=== PATIENT | female | born 1980 | race Caucasian/White ===

== ENCOUNTER → 2016-11-12 | Outpatient (CLI) | payer MEDICAID ==
[~2016-11-12] MED LIST: AMOX-358 PO; AMOX500C2 PO; B/P MED; BUTA1TAB46 PO; BUTA1TAB55 PO; CEFP500T4 PO; CETI1TAB2 PO; CLR7.5T PO; CYCL10TA9 PO; DIAZ5TAB3 PO; DIPH1TAB25 PO; FAMO40TA6 PO; FLUT16SP22 NS; GLIM4TAB PO; GUAI1TBM12 PO; HCT25T GT; HYDR-757 PO; HYDR1TAB PO; HYDROCODONE PO; IBP800T; IBP800T PO; LISI-556 PO; LISI1TAB6 PO; MECL25TA56 PO; MELO-198 PO; METH4TAB PO; MORP10CA8 PO; MTF500T PO; NAPR-243 PO; NAPR250T2 PO; NORTRIPTYLINE; NS.65NA45; OMEP20TA7 PO; ONDA4TAB8 SL; PANT40TA2 PO; PRD20T PO; PRED20TA PO; PREG150C PO; PRM25T PO; PRO AIR INHALER; SUCR1TAB36 PO; SULF-222 PO; SULF1TAB35 PO; SUMA100T2; SUMA10PO MC; TIZA2CAP PO; TRAM50TA2 PO; VALA1000 PO; VARE1TAB22 PO
--- NOTE | 2016-11-12 18:35 | Diagnostic Imaging Report ---
Ultrasound noninvasive bilateral. INDICATION: Diminished blood flow to lower extremities. FINDINGS: Spectral and color flow imaging was utilized. The ankle-brachial indices were obtained. The ankle-brachial index on the right is 0.93 and on left 0.96 (normal 1.00 or greater). IMPRESSION: 1. The ankle-brachial indices are slightly below normal limits, indicating that there is diminished arterial blood flow to the lower legs. 2. If further evaluation is desired, then a dedicated bilateral lower extremity arterial Doppler exam would be recommended. Dictated by: Dictated on workstation # [id number]
== END ==
LOC: RAD 13:51
PROVIDERS: ATTEND Nurse Practitioner Family
DX: R20.9 Unspecified disturbances of skin sensation (principal); M79.672 Pain in left foot; M79.671 Pain in right foot
CPT/HCPCS: 93922

== ENCOUNTER 2016-11-23 07:56 | Outpatient (CLI) | payer MEDICAID ==
[~2016-11-23] VITALS: Ht 162.6 cm; Wt 98.9 kg
[2016-11-23] MEDS ORDERED: TRIAMCINOLONE ACET (KENALOG-40) 40 MG/ML 1 ML VIAL ONE (08:07)
[2016-11-23] MEDS ORDERED: BUPIVACAINE 0.25% 30 ML (SENSORCAINE) VIAL ONE (08:07)
[2016-11-23 08:20] VITALS: BP 119/92
[2016-11-23 09:06] VITALS: BP 136/96
--- NOTE | 2016-11-23 12:03 | Pain Medicine-Procedure ---
Procedure Pre-Op/Post-Op Diagnosis Diagnosis: disc disorder with radiculopathy, lumbar Indications for Operation Low back pain Attending Surgeon Liz Procedure Date of Service: Nov 23, 2016 Procedure: Lumbar Epidural Steroid Injection at the L4-L5 level under Fluoroscopic Guidance Procedure: Patient was identified in the holding area. After risks, benefits, and alternatives were discussed with the patient, informed consent was obtained. Patient was brought to the fluoroscopy suite and placed prone on the procedure room table. A time out was performed. Vital signs were monitored throughout the procedure. The patients low back was prepped and draped in the usual sterile fashion. The patients skin was anesthetized using 2% Lidocaine. A Tuohy needle was inserted and advanced to the L4-L5 epidural space under fluoroscopic guidance using the loss of resistance technique and intermittent projection of fluoroscopy. There was no paresthesia with needle placement. The needle position was confirmed in both the AP and lateral view. After negative aspiration 2ml of contrast was injected under live fluoroscopy which showed good spread of the contrast in the epidural space at the appropriate level, there was no intravascular or subarachnoid spread. Again, after negative aspiration for heme or CSF, 2 ml of 0.25% Bupivicaine, 2ml of preservative free normal saline, and 80mg of Kenalog was injected. The needle was removed and a sterile bandage was placed and the patient was transferred to the recovery area in stable condition. After a brief period of observation, patient was discharged to home with no new neurological deficits and no apparent complications. Complications None JUSTIN KING MD Nov 23, 2016 12:03 pm
== END 2016-11-23 09:09 ==
LOC: CARD 07:56
PROVIDERS: ATTEND Pain Medicine Pain Medicine
DX: M51.16 Intervertebral disc disorders with radiculopathy, lumbar region (principal); G89.4 Chronic pain syndrome; Z79.899 Other long term (current) drug therapy
CPT/HCPCS: 62323; 82962

== ENCOUNTER → 2017-02-08 | Outpatient (CLI) | payer MEDICAID ==
--- NOTE | 2017-02-08 13:06 | Diagnostic Imaging Report ---
PROCEDURE: US Bilateral lower extremity arterial. TECHNIQUE: Multiple real-time grayscale images are obtained through both lower extremity arterial systems with color Doppler imaging and color Doppler spectral analysis. INDICATION: Bilateral leg pain, abnormal BERNARDINO. COMPARISON: BERNARDINO readings 11/12/2016. DISCUSSION: No significant atherosclerotic disease identified within either lower extremity. Primarily normal triphasic waveforms are present bilaterally. No elevated flow velocities to suggest a hemodynamically significant stenosis. No arterial occlusion. Soft tissues are unremarkable. IMPRESSION: 1. No sonographic evidence for hemodynamically significant stenosis or arterial occlusion within either lower extremity. Dictated by: Dictated on workstation # [id number]
== END ==
LOC: RAD 11:53
PROVIDERS: ATTEND Nurse Practitioner Family
DX: R09.89 Other specified symptoms and signs involving the circulatory and respiratory systems (principal)
CPT/HCPCS: 93925

== ENCOUNTER 2017-05-27 12:21 | Emergency (ER) | payer MEDICAID ==
[~2017-05-27] VITALS: Ht 162.6 cm; Wt 98.9 kg
[2017-05-27 13:40] LABS: BILIRUBIN,URINE NEGATIVE (NEGATIVE); KETONES,URINE NEGATIVE (NEGATIVE); LEUKOCYTE ESTERASE ,URINE 2+ (NEGATIVE); NITRITE,URINE NEGATIVE (NEGATIVE); PH,URINE 6.5 (5-9); PROTEIN,URINE 2+ (NEGATIVE); UROBILINOGEN,URINE NORMAL (NORMAL)
[2017-05-27] MEDS ORDERED: KETOROLAC 30 MG/ML VIAL IVP STA (13:41)
[2017-05-27] MEDS ORDERED: NS IV 1000 ML 1,000 ML IV ONE (13:41)
[2017-05-27 13:53] LABS: WBC,URINE 50-100 /HPF
[2017-05-27 14:29] LABS: BASOPHILS % (AUTO) 0 % (0-10); EOSINOPHILS # (AUTO) 0.1 10^3/uL (0.0-0.3); EOSINOPHILS % (AUTO) 1 % (0-10); LYMPHOCYTES # (AUTO) 1.4 X 10^3 (1.0-4.0); LYMPHOCYTES % (AUTO) 11 % (12-44); MEAN CORPUSCULAR HEMOGLOBIN 30 PG (25-34); MEAN CORPUSCULAR HGB CONC 33 G/DL (32-36); MEAN CORPUSCULAR VOLUME 92 FL (80-99); MEAN PLATELET VOLUME 10.5 FL (7.4-10.4); MONOCYTES # (AUTO) 0.7 X 10^3 (0.0-1.0); MONOCYTES % (AUTO) 5 % (0-12); NEUTROPHILS # (AUTO) 10.9 X 10^3 (1.8-7.8); NEUTROPHILS % (AUTO) 83 % (42-75); PLATELET COUNT 257 10^3/uL (130-400); RED BLOOD COUNT 3.63 10^6/uL (4.35-5.85); RED CELL DISTRIBUTION WIDTH 12.7 % (10.0-14.5); WHITE BLOOD COUNT 13.1 10^3/uL (4.3-11.0)
[2017-05-27 14:48] LABS: ERYTHROCYTE SEDIMENTATION RATE 71 MM/HR (0-20)
[2017-05-27 14:51] LABS: ALBUMIN 3.9 GM/DL (3.2-4.5); BILIRUBIN,TOTAL 0.4 MG/DL (0.1-1.0); CALCIUM 9.2 MG/DL (8.5-10.1); CREATININE SERUM 1.15 MG/DL (0.60-1.30); POTASSIUM 4.1 MMOL/L (3.6-5.0); TOTAL PROTEIN 7.2 GM/DL (6.4-8.2); hs C REACTIVE PROTEIN 19.35 MG/DL (0.00-0.50)
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
[2017-05-27] MEDS ORDERED: LIDOCAINE 1% INJ 20 ML (XYLOCAINE) VIAL INJ STA (15:30)
--- NOTE | 2017-05-27 15:40 | Diagnostic Imaging Report ---
PROCEDURE: CT head without contrast. TECHNIQUE: Multiple contiguous axial images were obtained through the brain without the use of intravenous contrast. INDICATION: Fever. Headache. FINDINGS: No intracranial hemorrhage, edema or mass effect. The brain parenchyma and padron-white matter differentiation appear preserved. No hydrocephalus. No extra-axial fluid collection is seen. The calvarium, the visualized portions of the paranasal sinuses and orbits appear grossly unremarkable. IMPRESSION: Unremarkable exam. Dictated by: Dictated on workstation # [id number]
--- NOTE | 2017-05-27 16:30 | Anesthesia-Procedure Note ---
Procedure Start/Stop Time Date of Procedure: May 27, 2017 Start Time: 15:34 Stop Time: 16:19 Procedures/Interventions Discussed Risk,Benefits: Yes Patient Consents: Yes Position: Right (Lateral decubitis) Sterile Technique: Yes Opening Pressure: 25mmHg Fluid Color: clear Spinal Needle Used: 20g Quinke 3 1/2inch Procedure Notes Patient's chart reviewed, Head CT negative, Plat-[id number]. Risk and benefits were discussed with patient and informed consent was obtained. Patient was placed in the right lateral decubitus position and the back was prepped with betadine solution. The L4-L5 interspace was localized with 3ml of 1% lidocaine and a 20G Quinke needle was inserted. Return of clear CSF was noted and opening pressure of 25mmHg was obtained. Samples were obtained and sent to lab. Needle was removed and band-aid applied. Patient tolerated the procedure well. CARLOS HUFF CRNA May 27, 2017 16:30
[2017-05-27 16:38] LABS: APPEARANCE,CSF CLEAR; COLOR,CSF COLORLESS; WHITE BLOOD CELL,CSF 0 CELLS (0-5)
[2017-05-27 17:03] LABS: CSF GLUCOSE 101 MG/DL (50-80); CSF TOTAL PROTEIN 19 MG/DL (15-40)
[2017-05-27] MEDS ORDERED: cefTRIAXone INJECTION 1,000 MG in NS (IVPB) 50 ML IV ONE (17:15)
[2017-05-27] MEDS ORDERED: CEFD300C3 PO (17:19)
[2017-05-27] MEDS ORDERED: ACETAMINOPHEN 500 MG TAB (TYLENOL) ONE (17:20)
[2017-05-27] MEDS ORDERED: IBUPROFEN 800 MG (MOTRIN) TAB PO ONE (18:45)
[2017-05-27] MEDS ORDERED: ACETAMINOPHEN 500 MG TAB (TYLENOL) PO ONE (18:45)
[2017-05-27 19:08] VITALS: BP 131/77
== END 2017-05-27 18:52 | disposition home or self-care (01) ==
LOC: EDUNIT# 12:21 → ER 12:24
DX: N39.0 Urinary tract infection, site not specified (principal); J45.909 Unspecified asthma, uncomplicated; I10 Essential (primary) hypertension; E11.9 Type 2 diabetes mellitus without complications; F41.9 Anxiety disorder, unspecified; F43.10 Post-traumatic stress disorder, unspecified; F32.9 Major depressive disorder, single episode, unspecified; G43.909 Migraine, unspecified, not intractable, without status migrainosus; M06.9 Rheumatoid arthritis, unspecified; F17.210 Nicotine dependence, cigarettes, uncomplicated; Z87.19 Personal history of other diseases of the digestive system; Z87.448 Personal history of other diseases of urinary system; Z87.442 Personal history of urinary calculi; Z85.41 Personal history of malignant neoplasm of cervix uteri; Z79.84 Long term (current) use of oral hypoglycemic drugs
CPT/HCPCS: 36415; 70450; 80053; 81000; 82945; 83605; 84157; 84703; 85025; 85652; 86141; 87040; 87070; 87077; 87088; 87186; 87205; 87252; 89051; 96361; 96365; 96375

== ENCOUNTER 2017-06-28 17:55 | Inpatient (IN) | payer MEDICAID ==
[~2017-06-28] VITALS: Ht 160 cm; Wt 98.6 kg
[~2017-06-28 17:55] MED LIST changes: +CEFD300C3 PO
--- OUTSIDE RECORDS SUMMARY | 2017-06-28 18:00 | XMS REPORT ---
Author Author JENNY WOLF [facility] eClinicalWorks Address Unknown Phone Unavailable Care Team Providers Care Manufacturing Manager Name Role Phone JENNY WOLF CP Unavailable Allergies No Known Allergies Problems Problem Type Condition Code Onset Dates Condition Status Problem Essential hypertension I10 Active Problem Asthma J45.909 Active Problem Daytime hypersomnia G47.19 Active Problem Radiculopathy of lumbar region M54.16 Active Problem Snoring R06.83 Active Problem Spinal stenosis, lumbar region M48.06 Active Problem Sinusitis J32.9 Active Problem Hypersomnia G47.10 Active Problem Tobacco abuse Z72.0 Active Problem Edema of both feet R60.0 Active Problem Rash and nonspecific skin eruption R21 Active Problem Type 2 diabetes mellitus without complication E11.9 Active Problem Bulging lumbar disc M51.26 Active Problem Upper respiratory infection, acute J06.9 Active Problem Anxiety F41.9 Active Problem Left foot pain M79.672 Active Problem Heart palpitations R00.2 Active Problem Hand pain, left M79.642 Active Problem Hand pain, right M79.641 Active Problem Nausea & vomiting R11.2 Active Problem Change in bowel habit R19.4 Active Problem Exposure to head lice Z20.7 Active Problem Gastroesophageal reflux disease without esophagitis K21.9 Active Problem Chronic pain G89.29 Active Problem Vaginal yeast infection B37.3 Active Problem Yeast infection B37.9 Active Problem HSV (herpes simplex virus) infection B00.9 Active Medications No Known Medications Results No Known Results Summary Purpose eClinicalWorks Submission
--- OUTSIDE RECORDS SUMMARY | 2017-06-28 18:00 | XMS REPORT ---
Author Author JENNY WOLF Organization e[employer] Address Unknown Phone Unavailable Care Team Providers Care Mail Deliverer Name Role Phone JENNY WOLF CP Unavailable Allergies No Known Allergies Problems Problem Type Condition Code Onset Dates Condition Status Problem Posttraumatic stress disorder 309.81 Active Problem Diabetes mellitus without mention of complication, type II or unspecified type, not stated as uncontrolled 250.00 Active Problem Unspecified hereditary and idiopathic peripheral neuropathy 356.9 Active Problem Spinal stenosis of lumbar region with radiculopathy 724.02 Active Problem Bulging of intervertebral disc between L4 and L5 722.10 Active Problem Asthma 493.90 Active Problem Unspecified genital herpes 054.10 Active Problem Other abnormal glucose 790.29 Active Problem 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 Active Problem Chronic pain 338.29 Active Problem Obesity, unspecified 278.00 Active Problem 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 Active Problem Generalized anxiety disorder 300.02 Active Problem Essential hypertension, benign 401.1 Active Medications Medication Code System Code Instructions Start Date End Date Status Dosage MS Contin [facility] [address]-36 15 MG Orally every 12 hrs must last 30 days December 30, 2014 1 tablet Hydrocodone-Acetaminophen [facility] [address]-66 5-325 MG Orally every 6 hrs must last 30 days December 30, 2014 1 tablet as needed Clorazepate Dipotassium [facility] [address]-52 15 MG Orally 3 times a day prn 1 tablet Results No Known Results Summary Purpose eClinicalWorks Submission
--- OUTSIDE RECORDS SUMMARY | 2017-06-28 18:00 | XMS REPORT ---
Author Author WEN BELLO [facility] eClinicalWorks Address Unknown Phone Unavailable Care Team Providers Care Medical Diagnostic Radiographer Name Role Phone WEN BELLO Unavailable Allergies No Known Allergies Problems Problem Type Condition Code Onset Dates Condition Status Assessment Carpal tunnel syndrome, right upper limb G56.01 Active Problem HSV (herpes simplex virus) infection B00.9 Active Assessment Carpal tunnel syndrome, left upper limb G56.02 Active Problem Chronic pain G89.29 Active Problem Essential hypertension I10 Active Problem Vaginal yeast infection B37.3 Active Problem Snoring R06.83 Active Problem Daytime hypersomnia G47.19 Active Problem Hand pain, right M79.641 Active Problem Left foot pain M79.672 Active Problem Spinal stenosis, lumbar region M48.06 Active Problem Radiculopathy of lumbar region M54.16 Active Problem Hand pain, left M79.642 Active Problem Asthma J45.909 Active Problem Tobacco abuse Z72.0 Active Problem Sinusitis J32.9 Active Problem Heart palpitations R00.2 Active Problem Hypersomnia G47.10 Active Problem Type 2 diabetes mellitus without complication E11.9 Active Problem Exposure to head lice Z20.7 Active Problem Anxiety F41.9 Active Problem Bulging lumbar disc M51.26 Active Problem Change in bowel habit R19.4 Active Problem Yeast infection B37.9 Active Problem Gastroesophageal reflux disease without esophagitis K21.9 Active Problem Nausea & vomiting R11.2 Active Medications No Known Medications Procedures Procedure Coding System Code Date Office Visit, Est Pt., Level 3 CPT-4 98315 April 19, 2016 Vital Signs Date/Time: April 19, 2016 Blood Pressure Diastolic 82 mmHg Blood Pressure Systolic 118 mmHg Height 63 in Results No Known Results Summary Purpose eClinicalWorks Submission
--- OUTSIDE RECORDS SUMMARY | 2017-06-28 18:01 | XMS REPORT ---
Author Author JENNY WOLF Organization e[employer] Address Unknown Phone Unavailable Care Team Providers Care Scale Tank Operator Name Role Phone JENNY WOLF CP Unavailable [...] (herpes simplex virus) infection B00.9 Active Medications Medication Code System Code Instructions Start Date End Date [facility] D[facility] [address]-[facility] 2 MG Subcutaneous weekly Sep 06, 2016 Nov 29, 2016 inject 2 mg Results No Known Results Summary Purpose eClinicalWorks Submission
--- OUTSIDE RECORDS SUMMARY | 2017-06-28 18:01 | XMS REPORT ---
Author Author JENNY WOLF Organization e[employer] Address Unknown Phone Unavailable Care Team Providers Care Sole Rounder Name Role Phone JENNY WOLF CP Unavailable Allergies No Known Allergies Problems Problem Type Condition Code Onset Dates Condition Status Problem GERD (gastroesophageal reflux disease) K21.9 Active Problem Radiculopathy of lumbar region M54.16 Active Problem Asthma J45.909 Active Problem Blood glucose abnormal R73.09 Active Problem Boil of buttock L02.32 Active Problem Exposure to head lice Z20.7 Active Problem Anxiety F41.9 Active Problem Spinal stenosis, lumbar region M48.06 Active Problem Type 2 diabetes mellitus without complication E11.9 Active Problem Bulging lumbar disc M51.26 Active Problem Essential hypertension, benign 401.1 Active Problem Chronic pain 338.29 Active Problem Spinal stenosis of lumbar region with radiculopathy 724.02 Active Problem Posttraumatic stress disorder 309.81 Active Problem Asthma 493.90 Active Problem Unspecified hereditary and idiopathic peripheral neuropathy 356.9 Active Problem Essential hypertension I10 Active Medications No Known Medications Results No Known Results Summary Purpose eClinicalWorks Submission
--- OUTSIDE RECORDS SUMMARY | 2017-06-28 18:01 | XMS REPORT ---
Author Author JENNY WOLF [facility] eClinicalWorks Address Unknown Phone Unavailable Care Team Providers Care Tactical Intelligence Officer Name Role Phone JENNY WOLF CP Unavailable Allergies No Known Allergies Problems Problem Type Condition Code Onset Dates Condition Status Problem Change in bowel habit R19.4 Active Problem HSV (herpes simplex virus) infection B00.9 Active Problem Yeast infection B37.9 Active Problem Tobacco abuse Z72.0 Active Problem Sinusitis J32.9 Active Problem Hypersomnia G47.10 Active Problem Vaginal yeast infection B37.3 Active Problem Chronic pain G89.29 Active Problem Snoring R06.83 Active Problem Daytime hypersomnia G47.19 Active Problem Radiculopathy of lumbar region M54.16 Active Problem Spinal stenosis, lumbar region M48.06 Active Problem Essential hypertension I10 Active Problem Asthma J45.909 Active Problem Type 2 diabetes mellitus without complication E11.9 Active Problem Exposure to head lice Z20.7 Active Problem Anxiety F41.9 Active Problem Gastroesophageal reflux disease without esophagitis K21.9 Active Problem Bulging lumbar disc M51.26 Active Problem Nausea & vomiting R11.2 Active Medications No Known Medications Results No Known Results Summary Purpose eClinicalWorks Submission
--- OUTSIDE RECORDS SUMMARY | 2017-06-28 18:01 | XMS REPORT ---
Author Author JENNY WOLF Organization [employer] Address Unknown Phone Unavailable Care Team Providers Care Electric Deicer Assembler Name Role Phone JENNY WOLF CP Unavailable [...] Problem Nausea & vomiting R11.2 Active Medications Medication Code System Code Instructions Start Date End Date Status Dosage Glimepiride [facility] [address]-31 2 MG Orally twice a day 1 tablet Results No Known Results Summary Purpose eClinicalWorks Submission
--- OUTSIDE RECORDS SUMMARY | 2017-06-28 18:01 | XMS REPORT ---
Author Author JENNY WOLF Organization [employer] Address Unknown Phone Unavailable Care Team Providers Care Flatwork Washer Name Role Phone JENNY WOLF CP Unavailable Allergies No Known Allergies Problems Problem Type Condition Code Onset Dates Condition Status Problem Chronic pain 338.29 Active Problem Asthma 493.90 Active Problem Spinal stenosis of lumbar region with radiculopathy 724.02 Active Problem Anxiety F41.9 Active Problem Spinal stenosis, lumbar region M48.06 Active Problem Bulging lumbar disc M51.26 Active Problem GERD (gastroesophageal reflux disease) K21.9 Active Problem Essential hypertension I10 Active Problem Radiculopathy of lumbar region M54.16 Active Problem Asthma J45.909 Active Problem Essential hypertension, benign 401.1 Active Problem Posttraumatic stress disorder 309.81 Active Problem Unspecified hereditary and idiopathic peripheral neuropathy 356.9 Active Medications Medication Code System Code Instructions Start Date End Date Status Dosage Acyclovir [facility] 30214560405 400 MG Orally Twice a day 1 tablet Hydrochlorothiazide [facility] [address]-86 25 MG Orally Once a day TAKE ONE TABLET BY MOUTH DAILY Omeprazole [facility] [address]-93 20 MG Orally Once a day April 21, 2015 1 capsule Carafate [facility] [address]-70 1 GM Orally Twice a day please voucher 1 tablet on an empty stomach Results No Known Results Summary Purpose eClinicalWorks Submission
--- OUTSIDE RECORDS SUMMARY | 2017-06-28 18:01 | XMS REPORT ---
Author Author JENNY WOLF Organization [employer] Address Unknown Phone Unavailable Care Team Providers Care Cardiac Rehabilitation Specialist Name Role Phone JENNY WOLF CP Unavailable [...]
--- OUTSIDE RECORDS SUMMARY | 2017-06-28 18:01 | XMS REPORT ---
Author Author JENNY WOLF [facility] eClinicalWorks Address Unknown Phone Unavailable Care Team Providers Care Shipfitter Helper Name Role Phone JENNY WOLF CP Unavailable Allergies, Adverse Reactions, Alerts Substance Reaction Event Type Prozac severe nightmares Drug Allergy Levaquin Info Not Available Drug Allergy Diclofenac Sodium rash Drug Allergy ChloraPrep One Step Info Not Available Drug Allergy Quinolones Info Not Available Non Drug Allergy Problems Problem Type Condition Code Onset Dates Condition Status Assessment Asthma J45.909 Active Assessment Nausea & vomiting R11.2 Active Assessment Herpes simplex B00.9 Active Assessment Encounter for Depo-Provera contraception Z30.42 Active Assessment Dysuria R30.0 Active Problem Essential hypertension I10 Active Problem Vaginal yeast infection B37.3 Active Problem Asthma J45.909 Active Problem Daytime hypersomnia G47.19 Active Problem Radiculopathy of lumbar region M54.16 Active Problem Snoring R06.83 Active Problem Tobacco abuse Z72.0 Active Problem Sinusitis J32.9 Active Problem Rash and nonspecific skin eruption R21 Active Problem Hand pain, left M79.642 Active Problem Bulging lumbar disc M51.26 Active Problem Anxiety F41.9 Active Problem Edema of both feet R60.0 Active Problem Spinal stenosis, lumbar region M48.06 Active Problem Heart palpitations R00.2 Active Problem Hypersomnia G47.10 Active Problem Hand pain, right M79.641 Active Problem Left foot pain M79.672 Active Problem Gastroesophageal reflux disease without esophagitis K21.9 Active Problem Nausea & vomiting R11.2 Active Problem Type 2 diabetes mellitus without complication E11.9 Active Problem Exposure to head lice Z20.7 Active Problem HSV (herpes simplex virus) infection B00.9 Active Problem Chronic pain G89.29 Active Problem Change in bowel habit R19.4 Active Problem Yeast infection B37.9 Active Medications Medication Code System Code Instructions Start Date End Date Status Dosage Imitrex [facility] [address]-58 100 MG Orally Once a day prn May 24, 2014 1 tablet by Oral route 1 time per day and repeat once more after 2 hours if headache recurs PRN Glimepiride [facility] 80591998357 2 MG Orally twice a day 1 tablet Hydrocodone-Acetaminophen [facility] [address]-19 5-325 MG Orally four times a day as needed for pain. Must last 28 days.- must have appt before next refill 1 tablet Lisinopril [facility] [address]-15 5 MG TAKE ONE TABLET BY MOUTH ONCE DAILY Nystatin [facility] [address]-05 812298 UNIT/GM Externally three times a day Nov 15, 2015 1 application to affected area Cane [facility] 8225-374641 1 daily May 24, 2015 as directed Lyrica [facility] [address]-73 150 MG Orally Three times a day 1 capsule Blood Glucose Monitor System [facility] [address]58[address] w/Device 2 times a day as needed. Nov 01, 2015 test blood sugar Pantoprazole Sodium [facility] [address]-47 20 mg Orally Once a day 1 tablet Zovirax [facility] [address]-49 5 % Externally Twice a day 1 application to affected area Symbicort [facility] [address]-47 80-4.5 MCG/ACT Inhalation Twice a day Jul 25, 2016 2 puffs MS Contin [facility] [address]-48 15 MG Orally every 12 hrs as needed must last 28 days-appt needed before next sciopt 1 tablet Lidocaine [facility] [address]-84 5 % Externally Three times a day 1 application to affected area as needed Robaxin [facility] [address]-79 500 MG Orally 3 times a day 1 tablet ProAir HFA [facility] [address]-85 108 (90 Base) MCG/ACT Inhalation every 4 hrs prn Jun 21, 2015 2 puffs as needed Promethazine HCl [facility] 14406535329 25 MG Orally every 6 hrs prn 1 tablet as needed Proctofoam HC [facility] 12173819913 1-1 % Rectal Four times a day 1 application as needed Clorazepate Dipotassium [facility] [address]-30 15 MG Orally 3 times a day prn must last 28 days. appt needed before next script 1 tablet Metoprolol Tartrate [facility] [address]-47 25 MG Orally Twice a day 1 tablet with food Carafate [facility] 48572335504 1 GM TAKE ONE TABLET BY MOUTH TWICE DAILY ON AN EMPTY STOMACH Flonase NDC 0 50 mcg/actuation Nasally Once a day Jun 16, 2014 1 sprays by Nasal route 2 times per day in each nostril Valacyclovir HCl [facility] [address]-88 1 GM Orally every 24 hrs 1 tablet Nabumetone [facility] [address]-42 500 MG Orally Twice a day Jun 07, 2015 1 tablet Procedures Procedure Coding System Code Date URINE TEST CPT-4 03933 Jul 25, 2016 DEPO PROVERA (150 MG/ML) CPT-4 J1050 Jul 25, 2016 URINALYSIS, AUTO, W/O SCOPE CPT-4 18206 Jul 25, 2016 Office Visit, Est Pt., Level 5 CPT-4 25074 Jul 25, 2016 THER/PROPH/DIAG INJ, SC/IM CPT-4 51343 Jul 25, 2016 Vital Signs Date/Time: Jul 25, 2016 Cardiac Monitoring Heart Rate 90 bpm Weight 233.3 lbs Height 63 in BMI 41.32 Index Blood Pressure Diastolic 82 mmHg Blood Pressure Systolic 132 mmHg Results Name Result Date Reference Range Unit Abnormality Flag TEST, URINE (IN HOUSE) ----RESULTS Negative [id number] ----Lot # [id number] ----Control + [id number] ----Exp date 20160725 UA LONG DIP (IN HOUSE) ----CHRISTI Negative [id number] ----GLU 2+ [id number] ----SG 1.010 20160725 ----KET Negative [id number] ----pH 5.5 20160725 ----Protein Negative [id number] ----BLO Negative [id number] ----[place] Negative [id number] ----Color yellow [id number] ----Odor none [id number] ----Exp date [id number] ----URO 0.2 20160725 ----NIT Negative [id number] ----Clarity clear 20160725 ----Lot # [id number] Summary Purpose eClinicalWorks Submission
--- OUTSIDE RECORDS SUMMARY | 2017-06-28 18:01 | XMS REPORT ---
Author Author JENNY WOLF [facility] eClinicalWorks Address Unknown Phone Unavailable Care Team Providers Care Hammer Fitter Name Role Phone JENNY WOLF CP Unavailable Allergies, Adverse Reactions, Alerts Substance Reaction Event Type Prozac severe nightmares Drug Allergy Levaquin Info Not Available Drug Allergy Diclofenac Sodium rash Drug Allergy ChloraPrep One Step Info Not Available Drug Allergy Quinolones Info Not Available Non Drug Allergy Problems Problem Type Condition Code Onset Dates Condition Status Problem Bulging lumbar disc M51.26 Active Problem Exposure to head lice Z20.7 Active Problem Type 2 diabetes mellitus without complication E11.9 Active Problem Chronic pain G89.29 Active Problem HSV (herpes simplex virus) infection B00.9 Active Problem Vaginal yeast infection B37.3 Active Problem Nausea & vomiting R11.2 Active Problem Gastroesophageal reflux disease without esophagitis K21.9 Active Problem Yeast infection B37.9 Active Problem Change in bowel habit R19.4 Active Assessment HSV (herpes simplex virus) infection B00.9 Active Assessment Type 2 diabetes mellitus without complication E11.9 Active Assessment Vaginal yeast infection B37.3 Active Assessment Spinal stenosis, lumbar region M48.06 Active Problem Asthma J45.909 Active Problem Radiculopathy of lumbar region M54.16 Active Assessment Essential hypertension I10 Active Problem Spinal stenosis, lumbar region M48.06 Active Problem Essential hypertension I10 Active Problem Anxiety F41.9 Active Medications Medication Code System Code Instructions Start Date End Date Status Dosage Carafate [facility] [address]-33 1 GM Orally Twice a day please voucher 1 tablet on an empty stomach Proctofoam HC [facility] 55837317855 1-1 % Rectal Four times a day 1 application as needed Lidocaine [facility] [address]-39 5 % Externally Three times a day 1 application to affected area as needed Imitrex [facility] [address]-46 100 mg May 24, 2014 1 tablet by Oral route 1 time per day and repeat once more after 2 hours if headache recurs PRN Nystatin [facility] [address]-85 100,000 unit/gram Nov 01, 2014 apply to the affected area(s) by Topical route 4-8 times per day Promethazine HCl [facility] 73375746285 25 MG Orally every 6 hrs prn 1 tablet as needed MS Contin [facility] [address]-48 15 MG Orally every 12 hrs as needed must last 29 days December 30, 2014 1 tablet Clorazepate Dipotassium [facility] [address]-86 15 MG Orally 3 times a day prn must last 29 days 1 tablet ProAir HFA [facility] [address]-40 108 (90 Base) MCG/ACT Inhalation every 4 hrs prn Jun 21, 2015 2 puffs as needed Flonase [facility] 0 50 mcg/actuation Nasally Once a day Jun 16, 2014 1 sprays by Nasal route 2 times per day in each nostril Omeprazole [facility] [address]-19 20 MG Orally Once a day April 21, 2015 1 capsule Lyrica [facility] [address]-30 150 MG Orally Three times a day 1 capsule Nystatin [facility] [address]-12 134602 UNIT/GM Externally three times a day Nov 15, 2015 1 application to affected area Hydrocodone-Acetaminophen [facility] [address]-53 5-325 MG Orally qid prn December 30, 2014 1 tablet as needed Zovirax [facility] [address]-22 5 % Externally Twice a day Oct 26, 2015 1 application to affected area Acyclovir [facility] 42577654601 400 MG Orally four times a day 1 tablet Cane [facility] 8225-954050 1 daily May 24, 2015 as directed Robaxin [facility] [address]-13 500 MG Orally 3 times a day 1 tablet Diflucan [facility] [address]-17 100 MG Orally daily Dec 01, 2015 Dec 11, 2015 1 tablet Blood Glucose Monitor System [facility] 27[address]20 w/Device 2 times a day as needed. Nov 01, 2015 test blood sugar Lisinopril [facility] [address]-82 5 MG Orally Once a day Nov 01, 2015 1 tablet Nabumetone [facility] [address]-68 500 MG Orally Twice a day Jun 07, 2015 1 tablet Vitamin D3 [facility] 57068-[address]88 1,000 unit Orally Once a day January 05, 2015 April 29, 2016 2 capsule Glimepiride [facility] [address]-82 1 MG Orally twice a day Oct 26, 2015 1 tablet Procedures Procedure Coding System Code Date Office Visit, Est Pt., Level 4 CPT-4 01943 Dec 01, 2015 Vital Signs Date/Time: Dec 01, 2015 Temperature 99.7 F Weight 236.7 lbs Height 63 in BMI 41.92 Index Blood Pressure Diastolic 82 mmHg Blood Pressure Systolic 140 mmHg Cardiac Monitoring Heart Rate 108 bpm Results No Known Results Summary Purpose eClinicalWorks Submission
--- OUTSIDE RECORDS SUMMARY | 2017-06-28 18:02 | XMS REPORT ---
Author Author JENNY WOLF [facility] Address [address] [place] [address] Care Team Providers Care Maintenance Mgr Name Role Phone JENNY WOLF Unavailable PROBLEMS Type Condition ICD9-CM Code [id number] Code Onset Dates Condition Status SNOMED Code Problem Daytime hypersomnia G47.19 Active 12494357265446 Problem Tobacco abuse Z72.0 Active 18039844 Problem Snoring R06.83 Active 42288246 Problem Mixed hyperlipidemia E78.2 Active 146655322 Problem Edema of both feet R60.0 Active 995039493 Problem Heart palpitations R00.2 Active 81516084 Problem Hypersomnia G47.10 Active 60615614 Problem Hand pain, left M79.642 Active 02700566 Problem Hand pain, right M79.641 Active 48617734 Problem Radiculopathy of lumbar region M54.16 Active 335373523 Problem Spinal stenosis, lumbar region M48.06 Active 01969741 Problem Essential hypertension I10 Active 52356011 Problem Asthma J45.909 Active 179356089 Problem Type 2 diabetes mellitus without complication E11.9 Active 10962092 Problem Gastroesophageal reflux disease without esophagitis K21.9 Active 481595662 Problem Anxiety F41.9 Active 46735615 Problem HSV (herpes simplex virus) infection B00.9 Active 15858583 Problem Bulging lumbar disc M51.26 Active 517709866 Problem Chronic pain G89.29 Active 45885857 ALLERGIES Unknown Allergies SOCIAL HISTORY No smoking Hx information available PLAN OF CARE VITAL SIGNS MEDICATIONS Medication Instructions Dosage Frequency Start Date End Date Duration Status MS Contin 15 MG Orally every 12 hrs as needed must last 28 days 1 tablet Active Hydrocodone-Acetaminophen 5-325 MG Orally four times a day as needed for pain. Must last 28 days. 1 tablet Active RESULTS No Results PROCEDURES No Known procedures IMMUNIZATIONS No Known Immunizations
--- OUTSIDE RECORDS SUMMARY | 2017-06-28 18:02 | XMS REPORT ---
Author Author JENNY WOLF [facility] Address [address] [place] [address] Care Team Providers Care Bridges And Buildings Supervisor Name Role Phone JENNY WOLF Unavailable PROBLEMS Type Condition ICD9-CM Code XXJ14-IW Code Onset Dates Condition Status SNOMED Code Problem Essential hypertension I10 Active 41169356 Problem Asthma J45.909 Active 371475894 Problem Daytime hypersomnia G47.19 Active 66141027965966 Problem Radiculopathy of lumbar region M54.16 Active 934716687 Problem Snoring R06.83 Active 31039170 Problem Spinal stenosis, lumbar region M48.06 Active 72721974 Problem Sinusitis J32.9 Active 05252298 Problem Hypersomnia G47.10 Active 90657222 Problem Tobacco abuse Z72.0 Active 19822760 Problem Edema of both feet R60.0 Active 421689429 Problem Rash and nonspecific skin eruption R21 Active 512178632 Problem Type 2 diabetes mellitus without complication E11.9 Active 10871445 Problem Bulging lumbar disc M51.26 Active 846100566 Problem Anxiety F41.9 Active 35422028 Problem Left foot pain M79.672 Active 35667609 Problem Heart palpitations R00.2 Active 82399914 Problem Hand pain, left M79.642 Active 26204483 Problem Hand pain, right M79.641 Active 02547070 Problem Nausea & vomiting R11.2 Active 10655611 Problem Change in bowel habit R19.4 Active 15128626 Problem Exposure to head lice Z20.7 Active 758503386 Problem Gastroesophageal reflux disease without esophagitis K21.9 Active 656945742 Problem Chronic pain G89.29 Active 43162444 Problem Vaginal yeast infection B37.3 Active 47464837 Problem Yeast infection B37.9 Active 6152709 Problem HSV (herpes simplex virus) infection B00.9 Active 00896809 ALLERGIES Unknown Allergies SOCIAL HISTORY No smoking Hx information available PLAN OF CARE VITAL SIGNS MEDICATIONS Medication Instructions Dosage Frequency Start Date End Date Duration Status Valacyclovir HCl 1 GM Orally every 24 hrs 1 tablet Active RESULTS No Results PROCEDURES No Known procedures IMMUNIZATIONS No Known Immunizations
--- OUTSIDE RECORDS SUMMARY | 2017-06-28 18:02 | XMS REPORT ---
Author Author JENNY WOLF [facility] eClinicalWorks Address Unknown Phone Unavailable Care Team Providers Care Logging Engineer Name Role Phone JENNY WOLF CP Unavailable Allergies, Adverse Reactions, Alerts Substance Reaction Event Type Prozac severe nightmares Drug Allergy Levaquin Info Not Available Drug Allergy Diclofenac Sodium rash Drug Allergy ChloraPrep One Step Info Not Available Drug Allergy Quinolones Info Not Available Non Drug Allergy Problems Problem Type Condition ICD-9 Code Onset Dates Condition Status Problem Posttraumatic [...] 622.12 Active Problem Chronic pain 338.29 Active Assessment Chest discomfort 786.59 Active Assessment Hyperhidrosis 705.21 Active Assessment Upper respiratory infection 465.9 Active Problem Obesity, unspecified 278.00 Active Problem 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 Active Assessment Asthma 493.90 Active Problem Generalized anxiety disorder 300.02 Active Assessment Anxiety 300.00 Active Problem Essential hypertension, benign 401.1 Active Medications Medication Code System Code Instructions Start Date End Date Status Dosage ProAir HFA [facility] [address]-26 108 (90 Base) MCG/ACT Inhalation every 4 hrs prn Jun 21, 2015 2 puffs as needed Nabumetone [facility] [address]-24 500 MG Orally Twice a day Jun 07, 2015 1 tablet Promethazine HCl [facility] 73315085123 25 MG Orally every 6 hrs prn 1 tablet as needed Lidocaine [facility] [address]-24 5 % Externally Three times a day 1 application to affected area as needed Nystatin [facility] [address]-29 100,000 unit/gram Nov 01, 2014 apply to the affected area(s) by Topical route 4-8 times per day Hydrochlorothiazide [facility] 57573389107 25 MG TAKE ONE TABLET BY MOUTH DAILY Clorazepate Dipotassium [facility] [address]-45 15 MG Orally 3 times a day prn 1 tablet Omeprazole [facility] [address]-71 20 MG Orally Once a day April 21, 2015 1 capsule Acyclovir [facility] 81978880529 400 MG Orally Twice a day 1 tablet tizanidine [facility] 0 4 mg Jul 30, 2014 1 tablet by Oral route 3 times per day Vitamin D3 [facility] 11558-86966 1,000 unit Orally Once a day January 05, 2015 2 capsule Flonase [facility] [address]-38 50 mcg/actuation Nasally Once a day Jun 16, 2014 1 sprays by Nasal route 2 times per day in each nostril Azithromycin [facility] [address]-76 250 MG Orally Once a day Jun 21, 2015 Jun 26, 2015 2 tablets on the first day, then 1 tablet daily for 4 days Imitrex [facility] [address]-46 100 mg May 24, 2014 1 tablet by Oral route 1 time per day and repeat once more after 2 hours if headache recurs PRN Cane [facility] 8225-394078 1 daily May 24, 2015 as directed Hydrocodone-Acetaminophen [facility] [address]-17 5-325 MG Orally every 6 hrs December 30, 2014 1 tablet as needed MS Contin [facility] [address]-34 15 MG Orally every 12 hrs December 30, 2014 1 tablet Carafate [facility] [address]-19 1 GM Orally Twice a day May 24, 2015 Sep 21, 2015 1 tablet on an empty stomach Procedures Procedure Coding System Code Date GONADOTROPIN ([facility]) CPT-4 90396 Jun 21, 2015 GONADOTROPIN (LH) CPT-4 97755 Jun 21, 2015 ELECTROCARDIOGRAM, TRACING CPT-4 52470 Jun 21, 2015 COMPLETE CBC W/AUTO DIFF WBC CPT-4 37403 Jun 21, 2015 COMPREHEN METABOLIC PANEL CPT-4 07348 Jun 21, 2015 VENIPUNCT, ROUTINE* CPT-4 92091 Jun 21, 2015 Office Visit, Est Pt., Level 4 CPT-4 26987 Jun 21, 2015 Vital Signs Date/Time: Jun 21, 2015 Temperature 98.0 F Weight 226.5 lbs Height 63 in BMI 40.12 Index Blood Pressure Diastolic 84 mmHg Blood Pressure Systolic 144 mmHg Cardiac Monitoring Heart Rate 100 bpm Results Name Result Date Reference Range Unit Abnormality Flag ROUTINE VENIPUNCTURE LH Summary Purpose eClinicalWorks Submission
--- OUTSIDE RECORDS SUMMARY | 2017-06-28 18:02 | XMS REPORT ---
Author Author JENNY WOLF Organization eClinicalWorks Address Unknown Phone Unavailable Care Team Providers Care Director Of Orthopedics Name Role Phone JENNY WOLF CP Unavailable Allergies No Known Allergies Problems Problem Type Condition Code Onset Dates Condition Status Problem Gastroesophageal reflux disease without esophagitis K21.9 Active Problem Change in bowel habit R19.4 Active Problem Nausea & vomiting R11.2 Active Problem Snoring R06.83 Active Problem Daytime hypersomnia G47.19 Active Problem Sinusitis J32.9 Active Problem HSV (herpes simplex virus) infection B00.9 Active Problem Yeast infection B37.9 Active Problem Vaginal yeast infection B37.3 Active Problem Chronic pain G89.29 Active Problem Essential hypertension I10 Active Problem Asthma J45.909 Active Problem Anxiety F41.9 Active Problem Bulging lumbar disc M51.26 Active Problem Radiculopathy of lumbar region M54.16 Active Problem Type 2 diabetes mellitus without complication E11.9 Active Problem Spinal stenosis, lumbar region M48.06 Active Problem Exposure to head lice Z20.7 Active Medications Medication Code System Code Instructions Start Date End Date Status Dosage Baclofen [facility] [address]-47 10 MG Orally Three times a day as needed Nov 1 tablet with food or milk Qvar [facility] [address]-85 40 MCG/ACT Inhalation Twice a day Dec 13, 2015 1 puff Omeprazole [facility] [address]-50 40 MG Orally Once a day April 21, 2015 1 capsule Results No Known Results Summary Purpose eClinicalWorks Submission
--- OUTSIDE RECORDS SUMMARY | 2017-06-28 18:02 | XMS REPORT ---
Author Author JENNY WOLF [facility] eClinicalWorks Address Unknown Phone Unavailable Care Team Providers Care Inspector Brake Lining Name Role Phone JENNY WOLF CP Unavailable Allergies No Known Allergies Problems Problem Type Condition Code Onset Dates Condition Status Problem Essential hypertension I10 Active Problem Vaginal [...] Instructions Start Date End Date Status Dosage Hydrocodone-Acetaminophen [facility] [address]-92 5-325 MG Orally four times a day as needed for pain. Must last 28 days.- must have appt before next refill 1 tablet MS Contin [facility] [address]-28 15 MG Orally every 12 hrs as needed must last 28 days-appt needed before next script 1 tablet Clorazepate Dipotassium [facility] [address]-30 15 MG Orally 3 times a day prn must last 28 days. appt needed before next script 1 tablet Results No Known Results Summary Purpose eClinicalWorks Submission
--- OUTSIDE RECORDS SUMMARY | 2017-06-28 18:02 | XMS REPORT ---
Author Author JENNY WOLF [facility] eClinicalWorks Address Unknown Phone Unavailable Care Team Providers Care Matrix Supervisor Name Role Phone JENNY WOLF CP Unavailable [...] Date End Date Status Dosage MS Contin [facility] [address]-53 15 MG Orally every 12 hrs as needed must last 28 days-appt needed before next script 1 tablet Clorazepate Dipotassium [facility] [address]-31 15 MG Orally 3 times a day prn must last 28 days. appt needed before next script 1 tablet Hydrocodone-Acetaminophen [facility] [address]-58 5-325 MG Orally four times a day as needed for pain. Must last 28 days.- must have appt before next refill 1 tablet Results No Known Results Summary Purpose eClinicalWorks Submission
--- OUTSIDE RECORDS SUMMARY | 2017-06-28 18:03 | XMS REPORT ---
Author Author JENNY WOLF Organization e[employer] Address Unknown Phone Unavailable Care Team Providers Care Bulk Plant Supervisor Name Role Phone JENNY WOLF CP [...]
--- OUTSIDE RECORDS SUMMARY | 2017-06-28 18:03 | XMS REPORT ---
Author Author JENNY WOLF Organization eClinical[employer] Address Unknown Phone Unavailable Care Team Providers Care Systems Navigator Name Role Phone JENNY WOLF CP Unavailable [...]
--- OUTSIDE RECORDS SUMMARY | 2017-06-28 18:03 | XMS REPORT ---
Author Author JENNY WOLF [facility] eClinicalWorks Address Unknown Phone Unavailable Care Team Providers Care Log Getter Name Role Phone JENNY WOLF CP Unavailable [...] Active Problem Blood glucose abnormal R73.09 Active Assessment Type 2 diabetes mellitus without complication E11.9 Active Problem Boil of buttock L02.32 Active Problem Exposure to head lice Z20.7 Active Problem Anxiety F41.9 Active Problem Spinal stenosis, lumbar region M48.06 Active Problem Type 2 diabetes mellitus without complication E11.9 Active Problem Bulging lumbar disc M51.26 Active Assessment Exposure to head lice Z20.7 Active Problem Essential hypertension, benign 401.1 Active Assessment Boil of buttock L02.32 Active Assessment Blood glucose abnormal R73.09 Active Problem Chronic pain 338.29 Active Problem Spinal stenosis of lumbar region with radiculopathy 724.02 Active Problem Posttraumatic stress disorder 309.81 Active Problem Asthma 493.90 Active Problem Unspecified hereditary and idiopathic peripheral neuropathy 356.9 Active Problem Essential hypertension I10 Active Medications Medication Code System Code Instructions Start Date End Date Status Dosage Acyclovir [facility] 13680750895 400 MG Orally Twice a day 1 tablet Glimepiride [facility] [address]-45 1 MG Orally twice a day Oct 26, 2015 1 tablet Zovirax [facility] [address]-97 5 % Externally Twice a day Oct 26, 2015 1 application to affected area Erislice [facility] [address]-22 0.5 % Externally once and repeat 7 days Oct 25, 2015 as directed Carafate [facility] [address]-33 1 GM Orally Twice a day please voucher 1 tablet on an empty stomach Bactrim DS [facility] [address]-03 800-160 MG Orally Twice a day Oct 25, 2015 Nov 04, 2015 1 tablet Imitrex [facility] [address]-67 100 mg May 24, 2014 1 tablet by Oral route 1 time per day and repeat once more after 2 hours if headache recurs PRN Lidocaine [facility] [address]-40 5 % Externally Three times a day 1 application to affected area as needed Proctofoam HC [facility] 18921382413 1-1 % Rectal Four times a day 1 application as needed Robaxin [facility] [address]-40 500 MG Orally 3 times a day 1 tablet Nabumetone [facility] [address]-80 500 MG Orally Twice a day Jun 07, 2015 1 tablet Lyrica [facility] [address]-95 150 MG Orally Three times a day 1 capsule Flonase ND 0 50 mcg/actuation Nasally Once a day Jun 16, 2014 1 sprays by Nasal route 2 times per day in each nostril MS Contin [facility] [address]-76 15 MG Orally every 12 hrs as needed must last 4 weeks December 30, 2014 1 tablet Hydrocodone-Acetaminophen [facility] [address]-84 5-325 MG Orally every 6 hrs as needed must last 4 weeks December 30, 2014 1 tablet as needed Promethazine HCl [facility] 91167876536 25 MG Orally every 6 hrs prn 1 tablet as needed Clorazepate Dipotassium [facility] [address]-70 15 MG Orally 3 times a day prn must last 4 weeks 1 tablet Omeprazole [facility] [address]-32 20 MG Orally Once a day April 21, 2015 1 capsule ProAir HFA [facility] [address]-38 108 (90 Base) MCG/ACT Inhalation every 4 hrs prn Jun 21, 2015 2 puffs as needed Cane [facility] 8225-444186 1 daily May 24, 2015 as directed Procedures Procedure Coding System Code Date CULTURE BACTERIA ANAEROBIC CPT-4 79061 Oct 25, 2015 GLYCATED HEMOGLOBIN TEST CPT-4 79483 Oct 25, 2015 GLUCOSE BLOOD TEST CPT-4 29895 Oct 25, 2015 THER/PROPH/DIAG INJ, SC/IM CPT-4 16242 Oct 25, 2015 ERICK 1 GM (IM) CPT-4 J0696 Oct 25, 2015 Office Visit, Est Pt., Level 5 CPT-4 83165 Oct 25, 2015 Vital Signs Date/Time: Oct 25, 2015 Temperature 98.1 F Weight 237.8 lbs Height 63 in BMI 42.12 Index Blood Pressure Diastolic 82 mmHg Blood Pressure Systolic 146 mmHg Cardiac Monitoring Heart Rate 100 bpm Results Name Result Date Reference Range Unit Abnormality Flag GLUCOSE FINGERSTICK (IN HOUSE) ----GLU FINGERSTICK 336 [id number] ----Lot # [id number] ----Exp date 01/12/201620151025 A1C (IN HOUSE) ----Lot # [id number] ----Exp date 20151027 ----A1C IN HOUSE 9.4 20151027 4.30 - 5.6 % Summary Purpose eClinicalWorks Submission
--- OUTSIDE RECORDS SUMMARY | 2017-06-28 18:03 | XMS REPORT ---
Author Author JENNY WOLF Organization eClinicalWorks Address Unknown Phone Unavailable Care Team Providers Care Engagement Liaison Name Role Phone JENNY WOLF CP Unavailable [...] Start Date End Date Status Dosage Hydrocodone-Acetaminophen [facility] [address]-99 5-325 MG Orally four times a day as needed for pain. Must last 28 days. 1 tablet Clorazepate Dipotassium [facility] [address]-06 15 MG Orally 3 times a day prn must last 28 days 1 tablet MS Contin [facility] [address]-10 15 MG Orally every 12 hrs as needed must last 28 days 1 tablet Results No Known Results Summary Purpose eClinicalWorks Submission
--- OUTSIDE RECORDS SUMMARY | 2017-06-28 18:03 | XMS REPORT ---
Author Author JENNY WOLF [facility] Address [address] [place] [address] Care Team Providers Care Head Automatic Sawyer Name Role Phone JENNY WOLF Unavailable PROBLEMS Type Condition ICD9-CM Code [id number] Code Onset Dates Condition Status SNOMED Code Problem Daytime hypersomnia G47.19 Active 12363239858034 Problem Tobacco abuse Z72.0 Active 44696359 Problem Snoring R06.83 Active 63088973 Problem Mixed hyperlipidemia E78.2 Active 171275433 Problem Edema of both feet R60.0 Active 138415315 Problem Heart palpitations R00.2 Active 10228542 Problem Hypersomnia G47.10 Active 46648472 Problem Hand pain, left M79.642 Active 53147728 Problem Hand pain, right M79.641 Active 49698568 Problem Radiculopathy of lumbar region M54.16 Active 445355383 Problem Spinal stenosis, lumbar region M48.06 Active 15525396 Problem Essential hypertension I10 Active 00121309 Problem Asthma J45.909 Active 430169370 Problem Type 2 diabetes mellitus without complication E11.9 Active 98087873 Problem Gastroesophageal reflux disease without esophagitis K21.9 Active 632860310 Problem Anxiety F41.9 Active 92516806 Problem HSV (herpes simplex virus) infection B00.9 Active 84670251 Problem Bulging lumbar disc M51.26 Active 840061048 Problem Chronic pain G89.29 Active 62709811 ALLERGIES Substance Reaction Event Type Date Status Prozac severe nightmares Drug Allergy Sep, Active Levaquin Unknown Drug Allergy Sep, Active Diclofenac Sodium rash Drug Allergy Sep, Active ChloraPrep One Step Unknown Drug Allergy Sep, Active Quinolones Unknown Non Drug Allergy Sep, Active SOCIAL HISTORY No smoking Hx information available PLAN OF CARE Activity Details Follow Up 2 Months or pending BERNARDINO Reason:Pain/DM VITAL SIGNS Height 63 in 2016-10-09 Weight 225.2 lbs 2016-10-09 Temperature 99.0 degrees Fahrenheit 2016-10-09 Heart Rate 96 bpm 2016-10-09 Respiratory Rate 24 2016-10-09 BMI 39.89 kg/m2 2016-10-09 Blood pressure systolic 146 mmHg 2016-10-09 Blood pressure diastolic 92 mmHg 2016-10-09 MEDICATIONS Medication Instructions Dosage Frequency Start Date End Date Duration Status Zovirax 5 % Externally Twice a day 1 application to affected area 12h Active Pantoprazole Sodium 20 mg Orally Once a day 1 tablet 24h Active MS Contin 15 MG Orally every 12 hrs as needed must last 28 days 1 tablet Active Promethazine HCl 25 MG Orally every 6 hrs prn 1 tablet as needed Active Lyrica 150 MG Orally Three times a day 1 capsule 8h Active Hydrocodone-Acetaminophen 5-325 MG Orally four times a day as needed for pain. Must last 28 days. 1 tablet Active Metoprolol Tartrate 25 MG Orally Twice a day 1 tablet with food 12h Active Cane 1 as directed 24h May, 99 days Active Blood Glucose Monitor System w/Device test blood sugar Oct, Active Valacyclovir HCl 1 GM Orally every 24 hrs 1 tablet 30 Active Robaxin 500 MG Orally 3 times a day 1 tablet 8h Active HydrOXYzine HCl 25 MG Orally every 4-6 hours as needed for itching 1 tablet as needed 05 days Active Lisinopril 5 MG Orally Once a day 1 tablet 24h 30 day(s) Active ProAir HFA 108 (90 Base) MCG/ACT Inhalation every 4 hrs prn 2 puffs as needed Jun, 30 days Active Symbicort 80-4.5 MCG/ACT Inhalation Twice a day 2 puffs 12h Jul, Active Nystatin 031688 UNIT/GM Externally three times a day 1 application to affected area 8h Oct, Active Glimepiride 2 MG Orally twice a day 1 tablet 12h 90 Active Lidocaine 5 % Externally Three times a day 1 application to affected area as needed 8h Active Imitrex 100 MG Orally Once a day prn 1 tablet by Oral route 1 time per day and repeat once more after 2 hours if headache recurs PRN May, Active Clorazepate Dipotassium 15 MG Orally 3 times a day prn must last 28 days. appt needed before next script 1 tablet Active Carafate 1 GM orally twice daily 1 tablet Active Nabumetone 500 MG Orally Twice a day 1 tablet 12h 18 May, 2015 Active Flonase 50 mcg/actuation Nasally Once a day 1 sprays by Nasal route 2 times per day in each nostril 24h May, 30 days Active Bydureon 2 MG Subcutaneous weekly inject 2 mg Aug, Nov, 28 days Active RESULTS Name Result Date Reference Range BERNARDINO 2016-10-17 BERNARDINO 2016-10-17 PROCEDURES Procedure Date Ordered Related Diagnosis Body Site Office Visit, Est Pt., Level 4 Oct 09, 2016 IMMUNIZATIONS No Known Immunizations
--- OUTSIDE RECORDS SUMMARY | 2017-06-28 18:03 | XMS REPORT ---
Author Author JENNY WOLF Organization eClinicalWorks Address Unknown Phone Unavailable Care Team Providers Care Automobile Tester Name Role Phone JENNY WOLF CP Unavailable [...]
--- OUTSIDE RECORDS SUMMARY | 2017-06-28 18:03 | XMS REPORT ---
Author Author JENNY WOLF Organization eClinicalWorks Address Unknown Phone Unavailable Care Team Providers Care Systems Technologist Name Role Phone JENNY WOLF CP Unavailable [...] Active Problem Yeast infection B37.9 Active Medications No Known Medications Results No Known Results Summary Purpose eClinicalWorks Submission
--- OUTSIDE RECORDS SUMMARY | 2017-06-28 18:03 | XMS REPORT ---
Author Author JENNY WOLF Organization eClinicalWorks Address Unknown Phone Unavailable Care Team Providers Care Oxygen Therapy Technician Name Role Phone JENNY WOLF CP Unavailable [...] Start Date End Date Status Dosage Hydrocodone-Acetaminophen [facility] [address]-57 5-325 MG Orally every 6 hrs as needed must last 4 weeks December 30, 2014 1 tablet as needed Clorazepate Dipotassium [facility] [address]-30 15 MG Orally 3 times a day prn must last 4 weeks 1 tablet MS Contin [facility] [address]-36 15 MG Orally every 12 hrs as needed must last 4 weeks December 30, 2014 1 tablet Results No Known Results Summary Purpose eClinicalWorks Submission
--- OUTSIDE RECORDS SUMMARY | 2017-06-28 18:04 | XMS REPORT ---
Author Author JENNY WOLF [facility] eClinicalWorks Address Unknown Phone Unavailable Care Team Providers Care Clam Treader Name Role Phone JENNY WOLF CP Unavailable Allergies, Adverse Reactions, Alerts Substance Reaction Event Type Prozac severe nightmares Drug Allergy Levaquin Info Not Available Drug Allergy Diclofenac Sodium rash Drug Allergy ChloraPrep One Step Info Not Available Drug Allergy Quinolones Info Not Available Non Drug Allergy Problems Problem Type Condition Code Onset Dates Condition Status Assessment Rash and nonspecific skin eruption R21 Active Assessment Upper respiratory infection, acute J06.9 Active Assessment Essential hypertension I10 Active Assessment Type 2 diabetes mellitus without complication E11.9 Active Assessment Chronic pain G89.29 Active Problem Essential hypertension [...] Instructions Start Date End Date Status Dosage Nabumetone [facility] [address]-23 500 MG Orally Twice a day Jun 07, 2015 1 tablet Symbicort [facility] [address]-11 80-4.5 MCG/ACT Inhalation Twice a day Jul 25, 2016 2 puffs ProAir HFA [facility] [address]-58 108 (90 Base) MCG/ACT Inhalation every 4 hrs prn Jun 21, 2015 2 puffs as needed Metoprolol Tartrate [facility] [address]-40 25 MG Orally Twice a day 1 tablet with food Lisinopril [facility] [address]-87 5 MG Orally Once a day 1 tablet Promethazine HCl [facility] 97066143144 25 MG Orally every 6 hrs prn 1 tablet as needed Pantoprazole Sodium [facility] [address]-90 20 mg Orally Once a day 1 tablet Carafate [facility] 90205305671 1 GM TAKE ONE TABLET BY MOUTH TWICE DAILY ON AN EMPTY STOMACH Nystatin [facility] [address]-14 355751 UNIT/GM Externally three times a day Nov 15, 2015 1 application to affected area Valacyclovir HCl [facility] [address]-34 1 GM Orally every 24 hrs 1 tablet Zovirax [facility] [address]-02 5 % Externally Twice a day 1 application to affected area Hydrocodone-Acetaminophen [facility] [address]-29 5-325 MG Orally four times a day as needed for pain. Must last 28 days. 1 tablet Robaxin [facility] [address]-67 500 MG Orally 3 times a day 1 tablet HydrOXYzine HCl [facility] [address]-55 25 MG Orally every 4-6 hours as needed for itching 1 tablet as needed Imitrex [facility] [address]-79 100 MG Orally Once a day prn May 24, 2014 1 tablet by Oral route 1 time per day and repeat once more after 2 hours if headache recurs PRN Lidocaine [facility] [address]-18 5 % Externally Three times a day 1 application to affected area as needed MS Contin [facility] [address]-34 15 MG Orally every 12 hrs as needed must last 28 days 1 tablet Azithromycin [facility] [address]-67 250 MG Orally Once a day Sep 05, 2016 Sep 12, 2016 2 tablets on the first day, then 1 tablet daily for 6 days Proctofoam HC [facility] 95545679071 1-1 % Rectal Four times a day 1 application as needed Flonase NDC 0 50 mcg/actuation Nasally Once a day Jun 16, 2014 1 sprays by Nasal route 2 times per day in each nostril Clorazepate Dipotassium [facility] [address]-53 15 MG Orally 3 times a day prn must last 28 days. appt needed before next script 1 tablet Blood Glucose Monitor System [facility] [address] w/Device 2 times a day as needed. Nov 01, 2015 test blood sugar Cane [facility] 8225-656253 1 daily May 24, 2015 as directed Lyrica [facility] [address]-44 150 MG Orally Three times a day 1 capsule Trulicity [facility] [address]-24 0.75 MG/0.5ML Subcutaneous weekly Sep 05, 2016 Oct 05, 2016 0.5 ml Glimepiride [facility] 52089827692 2 MG Orally twice a day 1 tablet Glimepiride [facility] [address]-70 1 MG Orally twice a day 1 tablet Procedures Procedure Coding System Code Date No Charge CPT-4 88958 Sep 05, 2016 Office Visit, Est Pt., Level 4 CPT-4 72165 Sep 05, 2016 GLYCATED HEMOGLOBIN TEST CPT-4 10542 Sep 05, 2016 Vital Signs Date/Time: Sep 05, 2016 Cardiac Monitoring Heart Rate 90 bpm Weight 230.2 lbs Height 63 in BMI 40.77 Index Blood Pressure Diastolic 82 mmHg Blood Pressure Systolic 133 mmHg Results Name Result Date Reference Range Unit Abnormality Flag A1C (IN HOUSE) ----A1C IN HOUSE 10.3 [id number] 4.3 - 5.6 % ----Previous A1c 9.5 20160905 ----Lot [id number] ----Exp date [id number] [employer] Summary Purpose eClinicalWorks Submission
--- OUTSIDE RECORDS SUMMARY | 2017-06-28 18:04 | XMS REPORT ---
Author Author JENNY WOLF [facility] eClinicalWorks Address Unknown Phone Unavailable Care Team Providers Care Compensation Manager Name Role Phone JENNY WOLF CP [...] region M54.16 Active Problem Asthma J45.909 Active Assessment Encounter for Depo-Provera contraception Z30.42 Active Problem Essential hypertension, benign 401.1 Active Problem Posttraumatic stress disorder 309.81 Active Problem Unspecified hereditary and idiopathic peripheral neuropathy 356.9 Active Medications No Known Medications Procedures Procedure Coding System Code Date DEPO PROVERA (150 MG/ML) CPT-4 J1050 Sep 13, 2015 THER/PROPH/DIAG INJ, SC/IM CPT-4 97137 Sep 13, 2015 URINE TEST CPT-4 78803 Sep 13, 2015 Results Name Result Date Reference Range Unit Abnormality Flag TEST, URINE (IN HOUSE) ----RESULTS Negative [id number] ----Lot # [id number] ----Control + [id number] ----Exp date [id number] Summary Purpose eClinicalWorks Submission
--- OUTSIDE RECORDS SUMMARY | 2017-06-28 18:05 | XMS REPORT ---
Author Author CHRIS HELM [facility] eClinicalWorks Address Unknown Phone Unavailable Care Team Providers Care Boat Loader Helper Name Role Phone CHRIS HELM CP Unavailable Allergies No Known Allergies Problems Problem Type Condition Code Onset Dates Condition Status Problem Anxiety F41.9 Active Problem Type 2 diabetes mellitus without complication E11.9 Active Problem Bulging lumbar disc M51.26 Active Problem HSV (herpes simplex virus) infection B00.9 Active Problem Yeast infection B37.9 Active Problem Chronic pain G89.29 Active Problem Gastroesophageal reflux disease without esophagitis K21.9 Active Problem Exposure to head lice Z20.7 Active Problem Change in bowel habit R19.4 Active Problem Nausea & vomiting R11.2 Active Problem Essential hypertension I10 Active Problem Asthma J45.909 Active Problem Radiculopathy of lumbar region M54.16 Active Problem Spinal stenosis, lumbar region M48.06 Active Medications Medication Code System Code Instructions Start Date End Date Status Dosage MS Contin [facility] [address]-41 15 MG Orally every 12 hrs as needed must last 29 days December 30, 2014 1 tablet Clorazepate Dipotassium [facility] [address]-67 15 MG Orally 3 times a day prn must last 29 days 1 tablet Hydrocodone-Acetaminophen [facility] [address]-08 5-325 MG Orally every 6 hrs as needed must last 29 days December 30, 2014 1 tablet as needed Results No Known Results Summary Purpose eClinicalWorks Submission
--- OUTSIDE RECORDS SUMMARY | 2017-06-28 18:05 | XMS REPORT ---
Author Author JENNY WOLF [facility] eClinicalWorks Address Unknown Phone Unavailable Care Team Providers Care Offset Machine Operator Name Role Phone JENNY WOLF CP [...] Active Problem Nausea & vomiting R11.2 Active Assessment Nausea & vomiting R11.2 Active Assessment Change in bowel habit R19.4 Active Assessment Gastroesophageal reflux disease without esophagitis K21.9 Active Problem Essential hypertension I10 Active Problem Asthma J45.909 Active Assessment Yeast infection B37.9 Active Problem Radiculopathy of lumbar region M54.16 Active Assessment HSV (herpes simplex virus) infection B00.9 Active Problem Spinal stenosis, lumbar region M48.06 Active Medications Medication Code System Code Instructions Start Date End Date Status Dosage Zovirax [facility] [address]-00 5 % Externally Twice a day Oct 26, 2015 1 application to affected area Blood Glucose Monitor System [facility] 36[address]04 w/Device 2 times a day as needed. Nov 01, 2015 test blood sugar Clorazepate Dipotassium [facility] [address]-17 15 MG Orally 3 times a day prn must last 4 weeks 1 tablet Proctofoam HC [facility] 99387428726 1-1 % Rectal Four times a day 1 application as needed Lidocaine [facility] [address]-14 5 % Externally Three times a day 1 application to affected area as needed Cane [facility] 8225-008287 1 daily May 24, 2015 as directed Nystatin [facility] [address]-37 416192 UNIT/GM Externally three times a day Nov 15, 2015 1 application to affected area Robaxin [facility] [address]-49 500 MG Orally 3 times a day 1 tablet Lisinopril [facility] [address]-09 5 MG Orally Once a day Nov 01, 2015 1 tablet Carafate [facility] [address]-75 1 GM Orally Twice a day please voucher 1 tablet on an empty stomach Acyclovir [facility] 45701707016 400 MG Orally three times daily 1 tablet Glimepiride [facility] [address]-61 1 MG Orally twice a day Oct 26, 2015 1 tablet Flonase [facility] 0 50 mcg/actuation Nasally Once a day Jun 16, 2014 1 sprays by Nasal route 2 times per day in each nostril Imitrex [facility] [address]-26 100 mg May 24, 2014 1 tablet by Oral route 1 time per day and repeat once more after 2 hours if headache recurs PRN MS Contin [facility] [address]-95 15 MG Orally every 12 hrs as needed must last 4 weeks December 30, 2014 1 tablet Hydrocodone-Acetaminophen [facility] [address]-09 5-325 MG Orally every 6 hrs as needed must last 4 weeks December 30, 2014 1 tablet as needed Diflucan [facility] [address]-91 100 MG Orally daily Nov 15, 2015 Nov 29, 2015 1 tablet Nabumetone [facility] [address]-91 500 MG Orally Twice a day Jun 07, 2015 1 tablet Omeprazole [facility] [address]-58 20 MG Orally Once a day April 21, 2015 1 capsule ProAir HFA [facility] [address]-18 108 (90 Base) MCG/ACT Inhalation every 4 hrs prn Jun 21, 2015 2 puffs as needed Lyrica [facility] [address]-08 150 MG Orally Three times a day 1 capsule Procedures Procedure Coding System Code Date Office Visit, Est Pt., Level 4 CPT-4 65891 Nov 15, 2015 Vital Signs Date/Time: Nov 15, 2015 Temperature 98.4 F Weight 234.3 lbs Height 63 in BMI 41.50 Index Blood Pressure Diastolic 80 mmHg Blood Pressure Systolic 124 mmHg Cardiac Monitoring Heart Rate 92 bpm Results No Known Results Summary Purpose eClinicalWorks Submission
--- OUTSIDE RECORDS SUMMARY | 2017-06-28 18:05 | XMS REPORT ---
Author Author JENNY WOLF Organization eClinicalWorks Address Unknown Phone Unavailable Care Team Providers Care Accountant Systems Name Role Phone JENNY WOLF CP Unavailable Allergies No Known Allergies Problems Problem Type Condition ICD-9 Code Onset [...] Date End Date Status Dosage MS Contin [facility] [address]-31 15 MG Orally every 12 hrs must last 30 days December 30, 2014 1 tablet Hydrocodone-Acetaminophen [facility] [address]-87 5-325 MG Orally every 6 hrs must last 30 days December 30, 2014 1 tablet as needed Results No Known Results Summary Purpose eClinicalWorks Submission
--- OUTSIDE RECORDS SUMMARY | 2017-06-28 18:05 | XMS REPORT ---
Author Author JENNY WOLF [facility] eClinicalWorks Address Unknown Phone Unavailable Care Team Providers Care Ultrasonographer Name Role Phone JENNY WOLF CP Unavailable [...] and nonspecific skin eruption R21 Active Assessment Edema of both feet R60.0 Active Assessment Type 2 diabetes mellitus without complication E11.9 Active Assessment Essential hypertension I10 Active Assessment Chronic pain G89.29 Active Problem [...] Instructions Start Date End Date Status Dosage Cane [facility] 1228-927520 1 daily May 24, 2015 as directed Lisinopril [facility] [address]-86 5 MG Orally Once a day 1 tablet Potassium Chloride [facility] [address]-77 10 MEQ Orally Once a day May 23, 2016 May 26, 2016 1 capsule with food Imitrex [facility] [address]-09 100 MG Orally Once a day prn May 24, 2014 1 tablet by Oral route 1 time per day and repeat once more after 2 hours if headache recurs PRN Chantix Starting Month Deshaun [facility] [address]-68 0.5 MG X 11 & 1 MG X 42 Orally daily then bid per starter pack as directed Glimepiride [facility] 97902039404 2 MG Orally twice a day 1 tablet Hydrocodone-Acetaminophen [facility] [address]-79 5-325 MG Orally four times a day as needed for pain. Must last 28 days. 1 tablet Furosemide [facility] [address]-92 20 mg Orally Once a day May 23, 2016 1 tablet Robaxin [facility] [address]-89 500 MG Orally 3 times a day 1 tablet Promethazine HCl [facility] 78145651989 25 MG Orally every 6 hrs prn 1 tablet as needed Proctofoam HC [facility] 75498208078 1-1 % Rectal Four times a day 1 application as needed Clorazepate Dipotassium [facility] [address]-02 15 MG Orally 3 times a day prn must last 28 days. appt needed in may 1 tablet Chantix [facility] 45006168635 1 MG TAKE ONE TABLET BY MOUTH TWICE DAILY Valacyclovir HCl [facility] [address]-42 1 GM Orally every 24 hrs 1 tablet Flonase [facility] [address]-05 50 mcg/actuation Nasally Once a day Jun 16, 2014 1 sprays by Nasal route 2 times per day in each nostril Glimepiride [facility] [address]-66 1 MG Orally twice a day 1 tablet Nystatin [facility] [address]-49 016911 UNIT/GM Externally three times a day Nov 15, 2015 1 application to affected area ProAir HFA [facility] [address]-87 108 (90 Base) MCG/ACT Inhalation every 4 hrs prn Jun 21, 2015 2 puffs as needed HydrOXYzine HCl [facility] [address]-26 25 MG Orally every 4-6 hours as needed for itching May 23, 2016 1 tablet as needed MS Contin [facility] [address]-74 15 MG Orally every 12 hrs as needed must last 28 days 1 tablet Lyrica [facility] [address]-78 150 MG Orally Three times a day 1 capsule Lidocaine [facility] [address]-24 5 % Externally Three times a day 1 application to affected area as needed Nabumetone [facility] [address]-64 500 MG Orally Twice a day Jun 07, 2015 1 tablet Carafate [facility] 25898787871 1 GM TAKE ONE TABLET BY MOUTH TWICE DAILY ON AN EMPTY STOMACH Blood Glucose Monitor System [facility] [address] w/Device 2 times a day as needed. Nov 01, 2015 test blood sugar Zovirax [facility] [address]-65 5 % Externally Twice a day 1 application to affected area Procedures Procedure Coding System Code Date LAB [facility]ILLED [facility] CPT-4 NOBLL May 23, 2016 VENIPUNCT, ROUTINE* CPT-4 48417 May 23, 2016 GLYCATED HEMOGLOBIN TEST CPT-4 26386 May 23, 2016 Office Visit, Est Pt., Level 5 CPT-4 53925 May 23, 2016 Vital Signs Date/Time: May 23, 2016 Cardiac Monitoring Heart Rate 96 bpm Weight 235.0 lbs Height 63 in BMI 41.62 Index Blood Pressure Diastolic 85 mmHg Blood Pressure Systolic 143 mmHg Results No Known Results Summary Purpose eClinicalWorks Submission
--- OUTSIDE RECORDS SUMMARY | 2017-06-28 18:05 | XMS REPORT ---
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 Active Problem Spinal stenosis of lumbar region with radiculopathy 724.02 Active Problem Other abnormal glucose 790.29 Active Problem Diabetes mellitus without mention of complication, type II or unspecified type, not stated as uncontrolled 250.00 Active Problem Chronic pain 338.29 Active Problem Unspecified genital herpes 054.10 Active Problem Obesity, unspecified 278.00 Active Problem 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 Active Problem Generalized anxiety disorder 300.02 Active Medications Medication Code System Code Instructions Start Date End Date Status Dosage Clorazepate Dipotassium [facility] 57378206647 15 MG TAKE ONE TABLET BY MOUTH DAILY NEEDED Results No Known Results Summary Purpose eClinicalWorks Submission
--- OUTSIDE RECORDS SUMMARY | 2017-06-28 18:05 | XMS REPORT ---
Author Author JENNY WOLF [facility] eClinicalWorks Address Unknown Phone Unavailable Care Team Providers Care Threshing Department Supervisor Name Role Phone JENNY WOLF CP [...] Problem Generalized anxiety disorder 300.02 Active Assessment Hemorrhoid 455.6 Active Problem Essential hypertension, benign 401.1 Active Medications Medication Code System Code Instructions Start Date End Date Status Dosage Hydrocodone-Acetaminophen [facility] [address]-64 5-325 MG Orally every 6 hrs must last 30 days December 30, 2014 1 tablet as needed Promethazine HCl [facility] 95432856369 25 MG Orally every 6 hrs prn 1 tablet as needed Nabumetone [facility] [address]-72 500 MG Orally Twice a day Jun 07, 2015 1 tablet tizanidine [facility] 0 4 mg Jul 30, 2014 1 tablet by Oral route 3 times per day Omeprazole [facility] [address]-57 20 MG Orally Once a day April 21, 2015 1 capsule MS Contin [facility] [address]-31 15 MG Orally every 12 hrs must last 30 days December 30, 2014 1 tablet Nystatin [facility] [address]-36 100,000 unit/gram Nov 01, 2014 apply to the affected area(s) by Topical route 4-8 times per day Lidocaine [facility] [address]-46 5 % Externally Three times a day 1 application to affected area as needed Imitrex [facility] [address]-98 100 mg May 24, 2014 1 tablet by Oral route 1 time per day and repeat once more after 2 hours if headache recurs PRN Carafate [facility] [address]-55 1 GM Orally Twice a day May 24, 2015 Sep 21, 2015 1 tablet on an empty stomach Cane [facility] 8225-573451 1 daily May 24, 2015 as directed Clorazepate Dipotassium [facility] [address]-83 15 MG Orally 3 times a day prn 1 tablet Proctofoam HC [facility] [address]-32 1-1 % Rectal Four times a day Jun 30, 2015 Jul 20, 2015 1 application as needed Flonase [facility] [address]-15 50 mcg/actuation Nasally Once a day Jun 16, 2014 1 sprays by Nasal route 2 times per day in each nostril Acyclovir [facility] 54618014319 400 MG Orally Twice a day 1 tablet ProAir HFA [facility] [address]-62 108 (90 Base) MCG/ACT Inhalation every 4 hrs prn Jun 21, 2015 2 puffs as needed Hydrochlorothiazide [facility] 58006504747 25 MG TAKE ONE TABLET BY MOUTH DAILY Procedures Procedure Coding System Code Date Office Visit, Est Pt., Level 3 CPT-4 77292 Jun 30, 2015 Vital Signs Date/Time: Jun 30, 2015 Temperature 98.1 F Weight 228.2 lbs Height 63 in BMI 40.42 Index Blood Pressure Diastolic 82 mmHg Blood Pressure Systolic 130 mmHg Cardiac Monitoring Heart Rate 80 bpm Results No Known Results Summary Purpose eClinicalWorks Submission
--- OUTSIDE RECORDS SUMMARY | 2017-06-28 18:06 | XMS REPORT ---
Author Author JENNY WOLF Organization eClinicalWorks Address Unknown Phone Unavailable Care Team Providers Care Art Supervisor Name Role Phone JENNY WOLF CP Unavailable Allergies No Known Allergies Problems Problem Type Condition Code Onset Dates Condition Status Problem Change in bowel habit R19.4 Active Problem HSV (herpes simplex virus) infection B00.9 Active Problem Yeast infection B37.9 Active Problem Tobacco abuse Z72.0 Active Assessment Upper respiratory infection J06.9 Active Problem Sinusitis J32.9 Active Assessment Type 2 diabetes mellitus without complication E11.9 Active Problem Hypersomnia G47.10 Active Problem Vaginal [...] Medications Procedures Procedure Coding System Code Date GLYCATED HEMOGLOBIN TEST CPT-4 74208 February 02, 2016 LAB NOT BILLED BY [facility] CPT-4 NOBLL February 02, 2016 Results Name Result Date Reference Range Unit Abnormality Flag A1C (IN HOUSE) ----A1C IN HOUSE 9.4% [id number] 4.3 - 5.6 % ----Previous A1c 9.4% [id number] ----Lot [id number] ----Exp date Dec [id number] Summary Purpose eClinicalWorks Submission
--- OUTSIDE RECORDS SUMMARY | 2017-06-28 18:06 | XMS REPORT ---
Author Author JENNY WOLF [facility] eClinicalWorks Address Unknown Phone Unavailable Care Team Providers Care Outside Plant Cable Engineer Name Role Phone JENNY WOLF CP [...] M54.16 Active Problem Asthma J45.909 Active Assessment GERD (gastroesophageal reflux disease) K21.9 Active Assessment Asthma J45.909 Active Assessment Long-term use of high-risk medication Z79.899 Active Assessment Essential hypertension I10 Active Assessment Anxiety F41.9 Active Problem Essential hypertension, benign 401.1 Active Assessment Radiculopathy of lumbar region M54.16 Active Problem Posttraumatic stress disorder 309.81 Active Assessment Spinal stenosis, lumbar region M48.06 Active Problem Unspecified hereditary and idiopathic peripheral neuropathy 356.9 Active Medications Medication Code System Code Instructions Start Date End Date Status Dosage Clorazepate Dipotassium [facility] [address]-56 15 MG Orally 3 times a day prn 1 tablet Lidocaine [facility] [address]-81 5 % Externally Three times a day 1 application to affected area as needed Cane [facility] 7621-266234 1 daily May 24, 2015 as directed Imitrex [facility] [address]-58 100 mg May 24, 2014 1 tablet by Oral route 1 time per day and repeat once more after 2 hours if headache recurs PRN Carafate [facility] [address]-34 1 GM Orally Twice a day May 24, 2015 Sep 21, 2015 1 tablet on an empty stomach Hydrochlorothiazide [facility] [address]-72 25 MG Orally Once a day TAKE ONE TABLET BY MOUTH DAILY MS Contin [facility] [address]-67 15 MG Orally every 12 hrs must last 30 days December 30, 2014 1 tablet ProAir HFA [facility] [address]-68 108 (90 Base) MCG/ACT Inhalation every 4 hrs prn Jun 21, 2015 2 puffs as needed Robaxin [facility] [address]-54 500 MG Orally 3 times a day 1 tablet Lyrica [facility] [address]-09 150 MG Orally Three times a day 1 capsule Omeprazole [facility] [address]-53 20 MG Orally Once a day April 21, 2015 1 capsule Acyclovir [facility] 17162589993 400 MG Orally Twice a day 1 tablet Nystatin [facility] [address]-93 100,000 unit/gram Nov 01, 2014 apply to the affected area(s) by Topical route 4-8 times per day Hydrocodone-Acetaminophen [facility] [address]-72 5-325 MG Orally every 6 hrs must last 30 days December 30, 2014 1 tablet as needed Promethazine HCl [facility] 04908686361 25 MG Orally every 6 hrs prn 1 tablet as needed Nabumetone [facility] [address]-26 500 MG Orally Twice a day Jun 07, 2015 1 tablet Flonase [facility] [address]-17 50 mcg/actuation Nasally Once a day Jun 16, 2014 1 sprays by Nasal route 2 times per day in each nostril Procedures Procedure Coding System Code Date No Charge CPT-4 82812 Aug 25, 2015 Office Visit, Est Pt., Level 4 CPT-4 57549 Aug 25, 2015 Vital Signs Date/Time: Aug 25, 2015 Temperature 98.2 F Weight 233.8 lbs Height 63 in BMI 41.41 Index Blood Pressure Diastolic 82 mmHg Blood Pressure Systolic 132 mmHg Cardiac Monitoring Heart Rate 86 bpm Results No Known Results Summary Purpose eClinicalWorks Submission
--- OUTSIDE RECORDS SUMMARY | 2017-06-28 18:06 | XMS REPORT ---
Author Author JENNY WOLF [facility] Address [address] [place] [address] Care Team Providers Care Optical Goods Drilling Machine Operator Name Role Phone JENNY WOLF Unavailable PROBLEMS Type Condition ICD9-CM Code ZDA22-RS Code Onset Dates Condition Status SNOMED Code Problem Essential hypertension I10 Active 08572668 Problem Asthma J45.909 Active 704265196 Problem Daytime hypersomnia G47.19 Active 13066797132675 Problem Radiculopathy of lumbar region M54.16 Active 495528825 Problem Snoring R06.83 Active 08458308 Problem Spinal stenosis, lumbar region M48.06 Active 63878869 Problem Sinusitis J32.9 Active 42604143 Problem Hypersomnia G47.10 Active 47964502 Problem Tobacco abuse Z72.0 Active 20397228 Problem Edema of both feet R60.0 Active 087213688 Problem Rash and nonspecific skin eruption R21 Active 054403191 Problem Type 2 diabetes mellitus without complication E11.9 Active 96696511 Problem Bulging lumbar disc M51.26 Active 711610596 Problem Anxiety F41.9 Active 43330859 Problem Left foot pain M79.672 Active 88779766 Problem Heart palpitations R00.2 Active 83709159 Problem Hand pain, left M79.642 Active 73067719 Problem Hand pain, right M79.641 Active 83990811 Problem Nausea & vomiting R11.2 Active 76681867 Problem Change in bowel habit R19.4 Active 16275727 Problem Exposure to head lice Z20.7 Active 059305267 Problem Gastroesophageal reflux disease without esophagitis K21.9 Active 422394163 Problem Chronic pain G89.29 Active 36240087 Problem Vaginal yeast infection B37.3 Active 16731231 Problem Yeast infection B37.9 Active 2875154 Problem HSV (herpes simplex virus) infection B00.9 Active 23782136 ALLERGIES Unknown Allergies SOCIAL HISTORY No smoking Hx information available PLAN OF CARE VITAL SIGNS MEDICATIONS Medication Instructions Dosage Frequency Start Date End Date Duration Status MS Contin 15 MG Orally every 12 hrs as needed must last 28 days-appt needed before next sciopt 1 tablet Active Clorazepate Dipotassium 15 MG Orally 3 times a day prn must last 28 days. appt needed before next script 1 tablet Active Hydrocodone-Acetaminophen 5-325 MG Orally four times a day as needed for pain. Must last 28 days.- must have appt before next refill 1 tablet Active RESULTS No Results PROCEDURES No Known procedures IMMUNIZATIONS No Known Immunizations
--- OUTSIDE RECORDS SUMMARY | 2017-06-28 18:07 | XMS REPORT ---
Author Author JENNY WOLF Organization eClinicalWorks Address Unknown Phone Unavailable Care Team Providers Care Feeder Operator Name Role Phone JENNY WOLF CP [...]
--- OUTSIDE RECORDS SUMMARY | 2017-06-28 18:07 | XMS REPORT ---
Author Author JENNY WOLF [facility] eClinicalWorks Address Unknown Phone Unavailable Care Team Providers Care Produce Service Team Member Name Role Phone JENNY WOLF CP Unavailable [...] Problem Bulging lumbar disc M51.26 Active Assessment Type 2 diabetes mellitus without complication E11.9 Active Problem Essential hypertension, benign 401.1 Active Assessment Acute maxillary sinusitis, recurrence not specified J01.00 Active Assessment Essential hypertension I10 Active Problem Chronic pain 338.29 Active Problem Spinal stenosis of lumbar region with radiculopathy 724.02 Active Problem Posttraumatic stress disorder 309.81 Active Problem Asthma 493.90 Active Problem Unspecified hereditary and idiopathic peripheral neuropathy 356.9 Active Problem Essential hypertension I10 Active Medications Medication Code System Code Instructions Start Date End Date Status Dosage Blood Glucose Monitor System [facility] [address] w/Device 2 times a day as needed. Nov 01, 2015 test blood sugar Lyrica [facility] [address]-49 150 MG Orally Three times a day 1 capsule Zovirax [facility] [address]-71 5 % Externally Twice a day Oct 26, 2015 1 application to affected area Bactrim DS [facility] [address]-56 800-160 MG Orally Twice a day Oct 25, 2015 Nov 04, 2015 1 tablet MS Contin [facility] [address]-14 15 MG Orally every 12 hrs as needed must last 4 weeks December 30, 2014 1 tablet Vitamin D3 [facility] [address] 1,000 unit Orally Once a day January 05, 2015 April 29, 2016 2 capsule Imitrex [facility] [address]-12 100 mg May 24, 2014 1 tablet by Oral route 1 time per day and repeat once more after 2 hours if headache recurs PRN Nabumetone [facility] [address]-90 500 MG Orally Twice a day Jun 07, 2015 1 tablet Glimepiride [facility] [address]-40 1 MG Orally twice a day Oct 26, 2015 1 tablet Azithromycin [facility] [address]-72 250 MG Orally Once a day Nov 01, 2015 Nov 08, 2015 2 tablets on the first day, then 1 tablet daily for 6 days Lisinopril [facility] [address]-76 5 MG Orally Once a day Nov 01, 2015 1 tablet Carafate [facility] [address]-55 1 GM Orally Twice a day please voucher 1 tablet on an empty stomach Cane [facility] 8093-035379 1 daily May 24, 2015 as directed Flonase [facility] 0 50 mcg/actuation Nasally Once a day Jun 16, 2014 1 sprays by Nasal route 2 times per day in each nostril Promethazine HCl [facility] 38410148008 25 MG Orally every 6 hrs prn 1 tablet as needed Clorazepate Dipotassium [facility] [address]-62 15 MG Orally 3 times a day prn must last 4 weeks 1 tablet Omeprazole [facility] [address]-60 20 MG Orally Once a day April 21, 2015 1 capsule Acyclovir [facility] 40156492960 400 MG Orally Twice a day 1 tablet Lidocaine [facility] [address]-30 5 % Externally Three times a day 1 application to affected area as needed Robaxin [facility] [address]-21 500 MG Orally 3 times a day 1 tablet Proctofoam HC [facility] 47130339169 1-1 % Rectal Four times a day 1 application as needed Nystatin [facility] [address]-27 100,000 unit/gram Nov 01, 2014 apply to the affected area(s) by Topical route 4-8 times per day Hydrocodone-Acetaminophen [facility] [address]-62 5-325 MG Orally every 6 hrs as needed must last 4 weeks December 30, 2014 1 tablet as needed ProAir HFA [facility] [address]-04 108 (90 Base) MCG/ACT Inhalation every 4 hrs prn Jun 21, 2015 2 puffs as needed Procedures Procedure Coding System Code Date COMPREHEN METABOLIC PANEL CPT-4 35493 Nov 01, 2015 LIPID PANEL CPT-4 71614 Nov 01, 2015 MICROALBUMIN, SEMIQUANT CPT-4 29458 Nov 01, 2015 VENIPUNCT, ROUTINE* CPT-4 72681 Nov 01, 2015 Office Visit, Est Pt., Level 4 CPT-4 54306 Nov 01, 2015 Vital Signs Date/Time: Nov 01, 2015 Temperature 97.9 F Weight 237.0 lbs Height 63 in BMI 41.98 Index Blood Pressure Diastolic 84 mmHg Blood Pressure Systolic 148 mmHg Cardiac Monitoring Heart Rate 92 bpm Results Name Result Date Reference Range Unit Abnormality Flag MICROALBUMIN, URINE (IN HOUSE) ----Control normal 20151101 ----A:C (IN HOUSE) 30-300mg/g 20151101 ----CRE 300mg/dL 20151101 ----ALB 80mg/L 20151101 ----Color Yellow 20151101 ----Lot # [id number] [id number] ----MICROALBUMIN Abnormal 20151101 ----Control abnormal 20151101 ----Lot # [id number] [id number] ----Exp date 20151101 ----Exp date Jul [id number] ----Clarity CLear 20151101 ROUTINE VENIPUNCTURE Summary Purpose eClinicalWorks Submission
--- OUTSIDE RECORDS SUMMARY | 2017-06-28 18:07 | XMS REPORT ---
Author Author JENNY WOLF [facility] Address [address] [place] [address] Care Team Providers Care Ed Transporter Name Role Phone JENNY WOLF Unavailable PROBLEMS Type Condition ICD9-CM Code CYL97-CM Code Onset Dates Condition Status SNOMED Code Problem Essential hypertension I10 Active 25288745 Problem Asthma J45.909 Active 134198034 Problem Radiculopathy of lumbar region M54.16 Active 562820510 Problem Snoring R06.83 Active 95308739 Problem Spinal stenosis, lumbar region M48.06 Active 19374748 Problem Sinusitis J32.9 Active 48712175 Problem Anxiety F41.9 Active 98055817 Problem Tobacco abuse Z72.0 Active 11876945 Problem Heart palpitations R00.2 Active 78092394 Problem Hypersomnia G47.10 Active 65372361 Problem Upper respiratory infection, acute J06.9 Active 31277232 Problem Edema of both feet R60.0 Active 118991511 Problem Exposure to head lice Z20.7 Active 447657796 Problem Type 2 diabetes mellitus without complication E11.9 Active 81774524 Problem Bulging lumbar disc M51.26 Active 642497936 Problem Hand pain, right M79.641 Active 77372592 Problem Left foot pain M79.672 Active 03438277 Problem Rash and nonspecific skin eruption R21 Active 980432985 Problem Hand pain, left M79.642 Active 72251390 Problem Change in bowel habit R19.4 Active 81380991 Problem Yeast infection B37.9 Active 4368560 Problem Gastroesophageal reflux disease without esophagitis K21.9 Active 809048004 Problem Nausea & vomiting R11.2 Active 58615706 Problem Vaginal yeast infection B37.3 Active 31869977 Problem Daytime hypersomnia G47.19 Active 84619205730665 Problem HSV (herpes simplex virus) infection B00.9 Active 54383125 Problem Chronic pain G89.29 Active 76033749 ALLERGIES Unknown Allergies SOCIAL HISTORY No smoking Hx information available PLAN OF CARE VITAL SIGNS MEDICATIONS Medication Instructions Dosage Frequency Start Date End Date Duration Status MS Contin 15 MG Orally every 12 hrs as needed must last 28 days 1 tablet Active Hydrocodone-Acetaminophen 5-325 MG Orally four times a day as needed for pain. Must last 28 days. 1 tablet Active Clorazepate Dipotassium 15 MG Orally 3 times a day prn must last 28 days. appt needed before next script 1 tablet Active RESULTS No Results PROCEDURES No Known procedures IMMUNIZATIONS No Known Immunizations
--- OUTSIDE RECORDS SUMMARY | 2017-06-28 18:07 | XMS REPORT ---
Author Author JENNY WOLF Organization eClinicalWorks Address Unknown Phone Unavailable Care Team Providers Care Diamond Driller Name Role Phone JENNY WOLF CP Unavailable [...] Spinal stenosis, lumbar region M48.06 Active Medications No Known Medications Results No Known Results Summary Purpose eClinicalWorks Submission
--- OUTSIDE RECORDS SUMMARY | 2017-06-28 18:07 | XMS REPORT ---
Author Author JENNY WOLF [facility] Address [address] [place] [address] Care Team Providers Care Director Life Sales Name Role Phone JENNY WOLF Unavailable PROBLEMS Type Condition ICD9-CM Code MCT85-DE Code Onset Dates Condition Status SNOMED Code Assessment Dysuria R30.0 Jun, Active 19518301 Problem Essential hypertension I10 Active 58979604 Problem Asthma J45.909 Active 615505853 Problem Daytime hypersomnia G47.19 Active 68499024466914 Problem Radiculopathy of lumbar region M54.16 Active 931949510 Problem Snoring R06.83 Active 36327082 Problem Spinal stenosis, lumbar region M48.06 Active 93419805 Problem Sinusitis J32.9 Active 46412929 Problem Hypersomnia G47.10 Active 05857021 Problem Tobacco abuse Z72.0 Active 45147054 Problem Edema of both feet R60.0 Active 620052050 Problem Rash and nonspecific skin eruption R21 Active 604079991 Problem Type 2 diabetes mellitus without complication E11.9 Active 04896449 Problem Bulging lumbar disc M51.26 Active 682627244 Problem Anxiety F41.9 Active 45028385 Problem Left foot pain M79.672 Active 56650623 Problem Heart palpitations R00.2 Active 48540089 Problem Hand pain, left M79.642 Active 46716142 Problem Hand pain, right M79.641 Active 05475425 Problem Nausea & vomiting R11.2 Active 14806604 Problem Change in bowel habit R19.4 Active 57752434 Problem Exposure to head lice Z20.7 Active 591348765 Problem Gastroesophageal reflux disease without esophagitis K21.9 Active 885957606 Problem Chronic pain G89.29 Active 71315263 Problem Vaginal yeast infection B37.3 Active 48525445 Problem Yeast infection B37.9 Active 8081651 Problem HSV (herpes simplex virus) infection B00.9 Active 79875630 ALLERGIES Unknown Allergies SOCIAL HISTORY No smoking Hx information available PLAN OF CARE VITAL SIGNS MEDICATIONS Unknown Medications RESULTS Name Result Date Reference Range UA W/CULTURE IF INDICATED (IN HOUSE) 2016-07-11 Lot # [id number] Exp date 06/2017 Clarity clear Color yellow Odor none GLU 2+ CHRISTI negative KET negative SG 1.010 BLO trace-intact pH 6.0 Protein 1+ URO 0.2 EU/dl NIT negative DENNYS negative Lot # [id number] Exp date 06/2016 PROCEDURES Procedure Date Ordered Related Diagnosis Body Site URINALYSIS, AUTO, W/O SCOPE Jul 11, 2016 IMMUNIZATIONS No Known Immunizations
--- OUTSIDE RECORDS SUMMARY | 2017-06-28 18:07 | XMS REPORT ---
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
[2017-06-28] MEDS ORDERED: NITR100C10 (18:19)
[2017-06-28] MEDS ORDERED: fentaNYL INJECTION 100 MCG/2 ML AMP IVP STA (18:32)
[2017-06-28] MEDS ORDERED: NS IV 1000 ML 1,000 ML IV ONE (18:32)
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
[2017-06-28 18:44] LABS: BASOPHILS % (AUTO) 0 % (0-10); EOSINOPHILS # (AUTO) 0.1 10^3/uL (0.0-0.3); EOSINOPHILS % (AUTO) 0 % (0-10); LYMPHOCYTES # (AUTO) 0.8 X 10^3 (1.0-4.0); LYMPHOCYTES % (AUTO) 4 % (12-44); MEAN CORPUSCULAR HEMOGLOBIN 30 PG (25-34); MEAN CORPUSCULAR HGB CONC 33 G/DL (32-36); MEAN CORPUSCULAR VOLUME 89 FL (80-99); MEAN PLATELET VOLUME 10.5 FL (7.4-10.4); MONOCYTES % (AUTO) 5 % (0-12); NEUTROPHILS # (AUTO) 19.3 X 10^3 (1.8-7.8); NEUTROPHILS % (AUTO) 91 % (42-75); PLATELET COUNT 271 10^3/uL (130-400); RED BLOOD COUNT 3.37 10^6/uL (4.35-5.85); RED CELL DISTRIBUTION WIDTH 13.1 % (10.0-14.5); WHITE BLOOD COUNT 21.2 10^3/uL (4.3-11.0)
[2017-06-28] MEDS ORDERED: NS 100 ML (IVPB) BAG IV ONE (19:00)
[2017-06-28] MEDS ORDERED: ONDANSETRON 4 MG/2 ML (SDV) Z0FRAN IVP ONE (19:00)
[2017-06-28] MEDS ORDERED: IOHEXOL 350 MG/ML 100 ML (OMNIPAQUE 350) VIAL IV ONE (19:00)
[2017-06-28 19:01] LABS: BAND NEUTROPHILS 3 %; BASOPHILS % (MANUAL) 0 %; EOSINOPHILS % (MANUAL) 0 %; LYMPHOCYTES % (MANUAL) 6 %; NEUTROPHILS % (MANUAL) 91 %
[2017-06-28 19:09] LABS: ALBUMIN 3.3 GM/DL (3.2-4.5); BILIRUBIN,TOTAL 0.8 MG/DL (0.1-1.0); CALCIUM 10.5 MG/DL (8.5-10.1); MAGNESIUM 1.6 MG/DL (1.8-2.4); POTASSIUM 4.2 MMOL/L (3.6-5.0); TOTAL PROTEIN 7.2 GM/DL (6.4-8.2)
[2017-06-28 19:23] LABS: BILIRUBIN,URINE NEGATIVE (NEGATIVE); KETONES,URINE NEGATIVE (NEGATIVE); LEUKOCYTE ESTERASE ,URINE 1+ (NEGATIVE); NITRITE,URINE NEGATIVE (NEGATIVE); PH,URINE 6 (5-9); PROTEIN,URINE 3+ (NEGATIVE); UROBILINOGEN,URINE NORMAL (NORMAL)
[2017-06-28] MEDS ORDERED: LACTATED RINGERS 1,000 ML IV ONE (19:27)
[2017-06-28] MEDS ORDERED: MAGNESIUM OXIDE (MAG-OX)400 MG TAB PO ONE (19:30)
[2017-06-28 19:33] LABS: WBC,URINE 25-50 /HPF
--- NOTE | 2017-06-28 19:59 | Diagnostic Imaging Report ---
Clinical indication: Patient with pelvic pain that radiates all over abdomen and sometimes radiates down left leg or up to chest. Patient has nausea and vomiting. Patient also has history of cervical cancer. Exam: CT exam of the abdomen and pelvis is performed without IV or oral contrast using stone protocol. Comparisons: CT scan of the abdomen and pelvis with and without contrast dated 12/03/2015. Findings: Visualized lung bases: Unremarkable. Liver: Hepatomegaly is seen which is slightly increased now measuring 28 cm in craniocaudal dimension compared to the prior study measured at 24 cm. There is diffuse low-attenuation changes seen throughout the liver, likely related to diffuse fatty infiltration which was noted on the prior study. There is some fatty sparing of the liver adjacent to the gallbladder fossa. Gallbladder: Unremarkable. Pancreas: Unremarkable as visualized. Spleen: Unremarkable as visualized. Adrenal glands: Unremarkable. Kidneys/ ureters: There is a 5 mm stone within the proximal right ureter which is just a few centimeters distal to the UPJ. There is no hydronephrosis. There is mild left perinephric fat stranding and enlargement of the left kidney. There is at least 2 other smaller nonobstructive stones in the inferior pole of the left kidney with the largest measuring roughly 1-2 mm. There is also mild left periureteral fat stranding and fat stranding adjacent to the left Gerota's fascia. Patient was also noted to have left renal stones on the comparison CT scan. Right kidney is unremarkable with no stones seen. There is a roughly 10 mm wide exophytic area involving the lateral inferior aspect of the right kidney which is noted on the prior study and just represents a lobulated contour. Aorta: Unremarkable as visualized. Intraabdominal/ retroperitoneal contents: Unremarkable. Intestines: Unremarkable as visualized. Appendix: There is interval development of high density material versus stones within the appendix. The appendix is not inflamed. Bladder: Unremarkable as visualized. Pelvic organs: Unremarkable as visualized. There is no developing mass seen. Extra abdominal/ pelvis regions: Unremarkable. Abdominal wall: Unremarkable. Bones: There are small degenerative spurs involving the visualized lower thoracic spine. Impression: 1: There is a 5 mm stone within the proximal left ureter which causes mild left periureteral and left perinephric fat stranding. There is no hydronephrosis. 2: There are other nonobstructive stones within the left kidney which are also noted on the prior study. 3: Interval progression of hepatomegaly with diffuse fatty infiltration of the liver seen. Dictated by: Dictated on workstation # [id number]
[2017-06-28] MEDS ORDERED: cefTRIAXone INJECTION 1,000 MG in NS (IVPB) 50 ML IV ONE (20:00)
[2017-06-28] MEDS ORDERED: PROCHLORPERAZINE 10 MG/2ML INJ (COMPAZINE) IV ONE (20:00)
[2017-06-28 20:35] VITALS: BP 97/65
[2017-06-28] MEDS ORDERED: NS IV 1000 ML 1,000 ML ONE (21:52)
[2017-06-28] MEDS: NS IV 1000 ML 1,000 ML IV SCH (22:00)
[2017-06-28 22:37] VITALS: BP 119/75
[2017-06-28] MEDS ORDERED: PREGABALIN 75 MG (LYRICA) CAP PO SCH (22:49)
[2017-06-28] MEDS: morphine ER 15 MG (MS CONTIN) TAB PO SCH (22:57)
[2017-06-28] MEDS: LORazepam 1 MG (ATIVAN) TAB PO PRN (22:57)
[2017-06-28] MEDS: oxyCODONE/APAP 10/325MG (PERCOCET 10) TABLET PO PRN (22:58)
[2017-06-28] MEDS ORDERED: ALFUZOSIN HCL 10 MG TAB (UROXATRAL) PO ONE (23:34)
[2017-06-28] MEDS: ALFUZOSIN HCL 10 MG TAB (UROXATRAL) PO SCH (23:43)
[2017-06-29] VITALS (8 sets, daily range): BP systolic 92–117; BP diastolic 54–77
[2017-06-29] MEDS ORDERED: SUCR1TAB36 PO (01:30)
[2017-06-29] MEDS ORDERED: FENO145T20 PO (01:30)
[2017-06-29] MEDS ORDERED: GLIM2TAB PO (01:30)
[2017-06-29] MEDS ORDERED: HYDR-3812 PO (01:30)
[2017-06-29] MEDS ORDERED: METH750T3 PO (01:30)
[2017-06-29] MEDS ORDERED: METO-333 PO (01:30)
[2017-06-29] MEDS ORDERED: NABU500T PO (01:30)
[2017-06-29] MEDS ORDERED: CLOR15TA PO (02:12)
[2017-06-29] MEDS ORDERED: NICOTINE 14 MG (NICODERM) PATCH TD ONE (03:01)
[2017-06-29] MEDS: NICOTINE 14 MG (NICODERM) PATCH TD SCH (03:11)
[2017-06-29] MEDS: NS IV 1000 ML 1,000 ML IV SCH ×6 (04:18→22:48)
[2017-06-29] MEDS: LORazepam 1 MG (ATIVAN) TAB PO PRN (05:00)
[2017-06-29] MEDS: oxyCODONE/APAP 10/325MG (PERCOCET 10) TABLET PO PRN ×2 (05:01→21:40)
[2017-06-29] MEDS ORDERED: inSUlin (REGULAR) HUMAN 1 UNIT/0.01 ML (CHARGE PER UNIT) SC SCH (06:00)
[2017-06-29] MEDS ORDERED: inSUlin (REGULAR) HUMAN 1 UNIT/0.01 ML (CHARGE PER UNIT) ONE (06:12)
[2017-06-29 06:18] LABS: BASOPHILS % (AUTO) 0 % (0-10); EOSINOPHILS # (AUTO) 0.1 10^3/uL (0.0-0.3); EOSINOPHILS % (AUTO) 1 % (0-10); LYMPHOCYTES # (AUTO) 0.6 X 10^3 (1.0-4.0); LYMPHOCYTES % (AUTO) 4 % (12-44); MEAN CORPUSCULAR HEMOGLOBIN 30 PG (25-34); MEAN CORPUSCULAR HGB CONC 33 G/DL (32-36); MEAN CORPUSCULAR VOLUME 91 FL (80-99); MEAN PLATELET VOLUME 10.6 FL (7.4-10.4); MONOCYTES # (AUTO) 0.6 X 10^3 (0.0-1.0); MONOCYTES % (AUTO) 4 % (0-12); NEUTROPHILS # (AUTO) 12.7 X 10^3 (1.8-7.8); NEUTROPHILS % (AUTO) 91 % (42-75); PLATELET COUNT 232 10^3/uL (130-400); RED BLOOD COUNT 3.02 10^6/uL (4.35-5.85); RED CELL DISTRIBUTION WIDTH 13.2 % (10.0-14.5)
[2017-06-29] MEDS: inSUlin (REGULAR) HUMAN 1 UNIT/0.01 ML (CHARGE PER UNIT) SC SCH ×4 (06:21→21:35)
[2017-06-29 06:32] LABS: CALCIUM 9.5 MG/DL (8.5-10.1); CREATININE SERUM 2.4 MG/DL (0.60-1.30); POTASSIUM 4.2 MMOL/L (3.6-5.0)
--- NOTE | 2017-06-29 09:29 | Diagnostic Imaging Report ---
EXAM: ABDOMEN/KUB 1VIEW INDICATION: Left-sided abdominal pain. COMPARISON: CT abdomen and pelvis without contrast 06/28/2017. FINDINGS: 5 mm calcification to left of the L4 vertebral body likely corresponds to the previously seen obstructing renal stone in the left ureter. Nonspecific bowel gas pattern. Large amount of stool throughout the colon and rectum. No acute osseous findings. IMPRESSION: 1. 5 mm calcification to left of the L4 vertebral body likely corresponds to the previously seen obstructing renal stone. 2. Large amount of stool throughout the colon and rectum may represent a degree of constipation. Dictated by: Dictated on workstation # [id number]
[2017-06-29] MEDS: PREGABALIN 75 MG (LYRICA) CAP PO SCH ×3 (09:36→21:35)
[2017-06-29] MEDS: morphine ER 15 MG (MS CONTIN) TAB PO SCH ×2 (09:37→21:34)
[2017-06-29 14:25] LABS: CALCIUM 9.2 MG/DL (8.5-10.1); CREATININE SERUM 2.38 MG/DL (0.60-1.30); POTASSIUM 4.4 MMOL/L (3.6-5.0)
[2017-06-29] MEDS ORDERED: NS IV 1000 ML 1,000 ML IV SCH ×2 (15:15→20:00)
[2017-06-29] MEDS: inSUlin DETERMIR 1 UNIT/0.01 ML (LEVEMIR) CHARGE PER UNIT SQ SCH ×2 (15:16→21:35)
--- NOTE | 2017-06-29 15:22 | History & Physicial ([facility]) ---
HPI History of Present Illness: 37 yo female presented to ER after not feeling well for about 4 weeks. She states she initially was having headaches, nasal congestion and respiratory type symptoms. She has been seen multiple times for those. She was diagnosed with a UTI not long ago and was still taking Macrobid when she came in this time. She came in due to spiking fevers up to 104 and severe lower left pelvic pain that radiates across pelvis and up both sides of lower abdomen into back. Source: patient Exam Limitations: other (tangential historian) Date seen by provider: Jun 29, 2017 Time Seen by Provider: 08:16 Attending Physician Kaci Macario MD PCP shanti,[facility] Date of Admission Jun 28, 2017 at 21:16 Home Medications Home Medications Reviewed patient Home Medication Reconciliation Form Allergies Coded Allergies: levofloxacin (Unverified Allergy, Mild, 03/21/09) Quinolones (Verified Allergy, Unknown, 02/10/06) shellfish derived (Verified Allergy, Unknown, 05/27/15) Uncoded Allergies: CLINONE (Allergy, Mild, 03/21/09) XEM-Cptukr-Vkblmn Hx Patient Social History Alcohol Use: Rarely Uses Recreational Drug Use: Yes (PT DENIES DRUG USE-- UA POSITIVE FOR METH) Smoking Status: Current Everyday Smoker Former smoker/When Quit: February 20, 2016 Type Used: Cigarettes 2nd Hand Smoke Exposure: No Recent Foreign Travel: No Contact w/other who traveled: No Recent Hopitalizations: No Recent Infectious Disease Expo: No Physical Abuse Screen: No Sexual Abuse: No Immunizations Up To Date Tetanus Booster (TDap): Less than 5yrs Past Medical History PMHx: Chronic back pain PSurgHx: D&C Elbow surgery- unclear type- possible nerve transposition Family Medical History Significant Family History: Asthma, CVA Review of Systems ([facility]) Constitutional: fever, malaise EENTM: nose congestion Respiratory: no symptoms reported Cardiovascular: no symptoms reported Gastrointestinal: see HPI Genitourinary: see HPI Musculoskeletal: back pain, joint pain Skin: no symptoms reported Psychiatric/Neurological: Anxiety Reviewed Test Results Reviewed Test Results Lab Laboratory Tests Test 06/28/17 18:35 06/28/17 19:15 06/29/17 05:53 06/29/17 05:54 Range/Units White Blood Count 21.2 H 14.0 H 4.3-11.0 10^3/uL Red Blood Count 3.37 L 3.02 L 4.35-5.85 10^6/uL Hemoglobin 10.0 L 9.0 L 11.5-16.0 G/DL Hematocrit 30 L 28 L 35-52 % Mean Corpuscular Volume 89 91 80-99 FL Mean Corpuscular Hemoglobin 30 30 25-34 PG Mean Corpuscular Hemoglobin Concent 33 33 32-36 G/DL Red Cell Distribution Width 13.1 13.2 10.0-14.5 % Platelet Count 271 232 130-400 10^3/uL Mean Platelet Volume 10.5 H 10.6 H 7.4-10.4 FL Neutrophils (%) (Auto) 91 H 91 H 42-75 % Lymphocytes (%) (Auto) 4 L 4 L 12-44 % Monocytes (%) (Auto) 5 4 0-12 % Eosinophils (%) (Auto) 0 1 0-10 % Basophils (%) (Auto) 0 0 0-10 % Neutrophils # (Auto) 19.3 H 12.7 H 1.8-7.8 X 10^3 Lymphocytes # (Auto) 0.8 L 0.6 L 1.0-4.0 X 10^3 Monocytes # (Auto) 1.0 0.6 0.0-1.0 X 10^3 Eosinophils # (Auto) 0.1 0.1 0.0-0.3 10^3/uL Basophils # (Auto) 0.0 0.0 0.0-0.1 10^3/uL Neutrophils % (Manual) 91 % Lymphocytes % (Manual) 6 % Monocytes % (Manual) 0 % Eosinophils % (Manual) 0 % Basophils % (Manual) 0 % Band Neutrophils 3 % Blood Morphology Comment NORMAL Sodium Level 131 L 133 L 135-145 MMOL/L Potassium Level 4.2 4.2 3.6-5.0 MMOL/L Chloride Level 101 101 98-107 MMOL/L Carbon Dioxide Level 18 L 22 21-32 MMOL/L Anion Gap 12 10 5-14 MMOL/L Blood Urea Nitrogen 23 H 25 H 7-18 MG/DL Creatinine 2.00 H 2.40 H 0.60-1.30 MG/DL Estimat Glomerular Filtration Rate 28 23 BUN/Creatinine Ratio 12 10 Glucose Level 479 *H 591 *H 70-105 MG/DL Lactic Acid Level 1.32 0.50-2.00 MMOL/L Calcium Level 10.5 H 9.5 8.5-10.1 MG/DL Magnesium Level 1.6 L 1.8-2.4 MG/DL Total Bilirubin 0.8 0.1-1.0 MG/DL Aspartate Amino Transf (AST/SGOT) 15 5-34 U/L Alanine Aminotransferase (ALT/SGPT) 21 0-55 U/L Alkaline Phosphatase 166 H 40-136 U/L Total Protein 7.2 6.4-8.2 GM/DL Albumin 3.3 3.2-4.5 GM/DL Lipase 14 8-78 U/L Urine Color YELLOW Urine Clarity CLEAR Urine pH 6 5-9 Urine Specific [place] 1.015 L 1.016-1.022 Urine Protein 3+ H NEGATIVE Urine Glucose (UA) 4+ H NEGATIVE Urine Ketones NEGATIVE NEGATIVE Urine Nitrite NEGATIVE NEGATIVE Urine Bilirubin NEGATIVE NEGATIVE Urine Urobilinogen NORMAL NORMAL MG/DL Urine Leukocyte Esterase 1+ H NEGATIVE Urine RBC (Auto) 4+ H NEGATIVE Urine RBC 2-5 H /HPF Urine WBC 25-50 H /HPF Urine Squamous Epithelial Cells 2-5 /HPF Urine Crystals NONE /LPF Urine Bacteria FEW H /HPF Urine Casts NONE /LPF Urine Mucus NEGATIVE /LPF Urine Culture Indicated YES Urine Opiates Screen POSITIVE H NEGATIVE Urine Oxycodone Screen NEGATIVE NEGATIVE Urine Methadone Screen NEGATIVE NEGATIVE Urine Propoxyphene Screen NEGATIVE NEGATIVE Urine Barbiturates Screen POSITIVE H NEGATIVE Ur Tricyclic Antidepressants Screen NEGATIVE NEGATIVE Urine Phencyclidine Screen NEGATIVE NEGATIVE Urine Amphetamines Screen NEGATIVE NEGATIVE Urine Methamphetamines Screen POSITIVE H NEGATIVE Urine Benzodiazepines Screen NEGATIVE NEGATIVE Urine Cocaine Screen NEGATIVE NEGATIVE Urine Cannabinoids Screen NEGATIVE NEGATIVE Hemoglobin A1c 8.3 H 4.5-6.2 % Glucometer 518 *H 70-110 MG/DL Test 06/29/17 11:19 06/29/17 14:00 Range/Units Glucometer 414 *H 70-110 MG/DL Sodium Level 133 L 135-145 MMOL/L Potassium Level 4.4 3.6-5.0 MMOL/L Chloride Level 108 H 98-107 MMOL/L Carbon Dioxide Level 17 L 21-32 MMOL/L Anion Gap 8 5-14 MMOL/L Blood Urea Nitrogen 25 H 7-18 MG/DL Creatinine 2.38 H 0.60-1.30 MG/DL Estimat Glomerular Filtration Rate 23 BUN/Creatinine Ratio 11 Glucose Level 417 *H 70-105 MG/DL Calcium Level 9.2 8.5-10.1 MG/DL Radiology CT abdomen/pelvis 06/28: Impression: 1: There is a 5 mm stone within the proximal left ureter which causes mild left periureteral and left perinephric fat stranding. There is no hydronephrosis. 2: There are other nonobstructive stones within the left kidney which are also noted on the prior study. 3: Interval progression of hepatomegaly with diffuse fatty infiltration of the liver seen. Physical Exam-([facility]) Physical Exam Vital Signs VS - Last 72 Hours, by Label 06/28/17 06/28/17 06/28/17 06/28/17 18:13 20:35 21:55 22:37 Temp 98.8 96.6 96.6 97.5 Pulse 129 115 106 109 Resp 20 20 20 B/P (MAP) 136/62 97/65 119/75 Pulse Ox 96 96 97 O2 Delivery Room Air Room Air Room Air 06/29/17 06/29/17 06/29/17 06/29/17 00:00 00:37 04:00 05:24 Temp 96.9 96.0 97.6 Pulse 108 112 116 Resp 22 22 20 B/P (MAP) 114/55 92/54 96/67 Pulse Ox 96 92 94 O2 Delivery Room Air Room Air Room Air Room Air 06/29/17 06/29/17 06/29/17 09:00 09:00 12:00 Temp 98.2 100.3 Pulse 120 124 Resp 16 20 B/P (MAP) 105/59 97/54 Pulse Ox 93 93 O2 Delivery Room Air Room Air Room Air Capillary Refill : Less Than 3 Seconds General Appearance: WD/WN, no apparent distress Respiratory: lungs clear, normal breath sounds Cardiovascular: regular rate, rhythm, no murmur Gastrointestinal: normal bowel sounds, tenderness (suprapubic) Extremities: no pedal edema Neurologic/Psychiatric: alert, normal mood/affect Skin: normal color, warm/dry Assessment/Plan Assessment/Plan Admission Dx Nephrolithiasis Acute renal insufficiency Urinary tract infection with sepsis Plan Nephrolithiasis- 5 mm stone noted, started on alfuzosin and IVF, pain control, straining urine Acute renal insufficiency- likely due to combination of volume depletion and nephrolithiasis -IVF, monitor closely Urinary tract infection with sepsis- febrile, tachycardic, leukocytosis, no elevation in lactic acid -Ceftriaxone, culture pending DVT ppx- enoxaparin Diagnosis/Problems: Clinical Quality Measures DVT/VTE Risk/Contraindication: Risk Factor Score Per Nursin RFS Level Per Nursing on Admit: 2=Moderate Copy Copies To 1: FAZAL Peoplse BETHANY N MD Jun 29, 2017 15:22
[2017-06-29] MEDS: ENOXAPARIN 40 MG/0.4 ML (LOVENOX) SYR SQ SCH (15:51)
[2017-06-29] MEDS ORDERED: inSUlin ASPART (NovoLOG) 1 UNIT/0.01 ML (CHARGE PER UNIT) SC SCH (16:00)
[2017-06-29] MEDS: inSUlin ASPART (NovoLOG) 1 UNIT/0.01 ML (CHARGE PER UNIT) SC SCH (17:13)
[2017-06-29] MEDS ORDERED: cefTRIAXone INJECTION 1,000 MG in NS (IVPB) 50 ML IV SCH (20:00)
[2017-06-29 20:34] LABS: BASOPHILS % (AUTO) 0 % (0-10); EOSINOPHILS # (AUTO) 0.1 10^3/uL (0.0-0.3); EOSINOPHILS % (AUTO) 1 % (0-10); LYMPHOCYTES % (AUTO) 6 % (12-44); MEAN CORPUSCULAR HEMOGLOBIN 30 PG (25-34); MEAN CORPUSCULAR HGB CONC 32 G/DL (32-36); MEAN CORPUSCULAR VOLUME 92 FL (80-99); MEAN PLATELET VOLUME 10.4 FL (7.4-10.4); MONOCYTES # (AUTO) 0.7 X 10^3 (0.0-1.0); MONOCYTES % (AUTO) 5 % (0-12); NEUTROPHILS # (AUTO) 13.6 X 10^3 (1.8-7.8); NEUTROPHILS % (AUTO) 88 % (42-75); PLATELET COUNT 210 10^3/uL (130-400); RED BLOOD COUNT 2.76 10^6/uL (4.35-5.85); RED CELL DISTRIBUTION WIDTH 13.6 % (10.0-14.5); WHITE BLOOD COUNT 15.3 10^3/uL (4.3-11.0)
[2017-06-29] MEDS: ONDANSETRON 4 MG/2 ML (SDV) Z0FRAN IV PRN (20:43)
[2017-06-29 20:52] LABS: ALBUMIN 2.7 GM/DL (3.2-4.5); CALCIUM 8.8 MG/DL (8.5-10.1); CREATININE SERUM 2.33 MG/DL (0.60-1.30); POTASSIUM 3.9 MMOL/L (3.6-5.0); TOTAL PROTEIN 5.8 GM/DL (6.4-8.2)
[2017-06-29] MEDS: PIPERACILLIN SODIUM/TAZOBACTAM 4.5 GM in NS (IVPB) 100 ML IV SCH (22:48)
[2017-06-30] VITALS (7 sets, daily range): BP systolic 101–122; BP diastolic 55–70
[2017-06-30] MEDS: NS IV 1000 ML 1,000 ML IV SCH ×5 (00:28→17:19)
[2017-06-30] MEDS: PIPERACILLIN SODIUM/TAZOBACTAM 4.5 GM in NS (IVPB) 100 ML IV SCH ×2 (04:48→13:44)
[2017-06-30] MEDS: oxyCODONE/APAP 10/325MG (PERCOCET 10) TABLET PO PRN (05:06)
[2017-06-30] MEDS: LORazepam 1 MG (ATIVAN) TAB PO PRN (06:27)
[2017-06-30] MEDS: inSUlin (REGULAR) HUMAN 1 UNIT/0.01 ML (CHARGE PER UNIT) SC SCH ×3 (06:39→17:19)
[2017-06-30] MEDS: inSUlin ASPART (NovoLOG) 1 UNIT/0.01 ML (CHARGE PER UNIT) SC SCH ×3 (06:39→17:19)
[2017-06-30] MEDS: ONDANSETRON 4 MG/2 ML (SDV) Z0FRAN IV PRN (07:27)
[2017-06-30 07:29] LABS: MEAN PLATELET VOLUME 10.3 FL (7.4-10.4); RED BLOOD COUNT 2.66 10^6/uL (4.35-5.85); RED CELL DISTRIBUTION WIDTH 14.1 % (10.0-14.5); WHITE BLOOD COUNT 15.1 10^3/uL (4.3-11.0)
[2017-06-30 07:48] LABS: ALBUMIN 2.5 GM/DL (3.2-4.5); BILIRUBIN,TOTAL 1.1 MG/DL (0.1-1.0); CALCIUM 8.2 MG/DL (8.5-10.1); CREATININE SERUM 2.44 MG/DL (0.60-1.30); POTASSIUM 4.2 MMOL/L (3.6-5.0); TOTAL PROTEIN 5.6 GM/DL (6.4-8.2)
[2017-06-30] MEDS ORDERED: CEFEPIME INJECTION 2,000 MG in NS (IVPB) 50 ML IV SCH (09:00)
[2017-06-30] MEDS: PREGABALIN 75 MG (LYRICA) CAP PO SCH ×2 (09:04→13:45)
[2017-06-30] MEDS: morphine ER 15 MG (MS CONTIN) TAB PO SCH (09:04)
[2017-06-30] MEDS: NICOTINE 14 MG (NICODERM) PATCH TD SCH (09:04)
--- NOTE | 2017-06-30 09:43 | Diagnostic Imaging Report ---
INDICATION: Kidney stone. Comparison with 06/29/2017. FINDINGS: Calcification again noted just lateral to the L4 transverse process on the left is unchanged in appearance. There continues to be calcification overlying the lower pole of the left kidney measuring approximately 3 mm. IMPRESSION: 5 mm calculus in the mid left ureter appears unchanged in position. Dictated by: Dictated on workstation # [id number]
[2017-06-30] MEDS ORDERED: POLYETHYLENE GLYCOL 17 GM (MIRALAX) PACK PO SCH (10:30)
[2017-06-30] MEDS ORDERED: METH500T7 PO (13:08)
[2017-06-30] MEDS ORDERED: SUCR1TAB PO (13:08)
[2017-06-30] MEDS ORDERED: MORP-33 PO (13:08)
[2017-06-30] MEDS ORDERED: NITR100C10 PO (13:46)
[2017-06-30] MEDS ORDERED: DULA1.5P2 PO (13:57)
[2017-06-30] MEDS ORDERED: FLUT16SP22 NSEACH (13:57)
--- NOTE | 2017-06-30 14:39 | Progress Note (SOAP) ---
Subjective Subjective/Events-last exam Febrile, tachycardic, having periods of apparent delirium. On my interview this am, she is oriented x 3, but also frequently starts talking about her daughter in a way that does not make sense, as if her daughter is the hospital patient instead of in the room with her. Review of Systems Date Seen by Provider: Jun 30, 2017 Time Seen by Provider: 09:30 Objective Exam Last Set of Vital Signs Vital Signs Date Time Temp Pulse Resp B/P (MAP) Pulse Ox O2 Delivery O2 Flow Rate FiO2 06/30/17 12:19 99.0 142 18 116/60 91 Room Air Capillary Refill : Less Than 3 Seconds I&O Intake and Output 07/01/17 00:00 Intake Total 5400 ml Output Total 200 ml Balance 5200 ml Intake Oral 150 ml IV Total 5250 ml Output Urine Total 200 ml General: Alert, Oriented X3 Lungs: Clear to Auscultation, Normal Air Movement Heart: Other (tachycardic) Abdomen: Normal Bowel Sounds, Soft Psych/Mental Status: Other (oriented x 3 but also tangential and saying things that do not make sense) Results/Procedures Lab Laboratory Tests 06/29/17 15:36: Glucometer 383H 06/29/17 20:30: White Blood Count 15.3H, Red Blood Count 2.76L, Hemoglobin 8.2L, Hematocrit 25L , Mean Corpuscular Volume 92, Mean Corpuscular Hemoglobin 30, Mean Corpuscular Hemoglobin Concent 32, Red Cell Distribution Width 13.6, Platelet Count 210, Mean Platelet Volume 10.4, Neutrophils (%) (Auto) 88H, Lymphocytes (%) (Auto) 6L , Monocytes (%) (Auto) 5, Eosinophils (%) (Auto) 1, Basophils (%) (Auto) 0, Neutrophils # (Auto) 13.6H, Lymphocytes # (Auto) 1.0, Monocytes # (Auto) 0.7, Eosinophils # (Auto) 0.1, Basophils # (Auto) 0.0, Sodium Level 137, Potassium Level 3.9, Chloride Level 110H, Carbon Dioxide Level 17L, Anion Gap 10, Blood Urea Nitrogen 25H, Creatinine 2.33H, Estimat Glomerular Filtration Rate 24, BUN/ Creatinine Ratio 11, Glucose Level 217H, Lactic Acid Level 0.91, Calcium Level 8.8, Total Bilirubin 1.0, Aspartate Amino Transf (AST/SGOT) 17, Alanine Aminotransferase (ALT/SGPT) 19, Alkaline Phosphatase 144H, Total Protein 5.8L, Albumin 2.7L 06/29/17 21:08: Glucometer 243H 06/30/17 05:33: Glucometer 172H 06/30/17 07:25: White Blood Count 15.1H, Red Blood Count 2.66L, Hemoglobin 7.9L, Hematocrit 25L , Mean Corpuscular Volume 93, Mean Corpuscular Hemoglobin 30, Mean Corpuscular Hemoglobin Concent 32, Red Cell Distribution Width 14.1, Platelet Count 223, Mean Platelet Volume 10.3, Sodium Level 138, Potassium Level 4.2, Chloride Level 114H, Carbon Dioxide Level 12L, Anion Gap 12, Blood Urea Nitrogen 24H, Creatinine 2.44H, Estimat Glomerular Filtration Rate 22, BUN/Creatinine Ratio 10 , Glucose Level 220H, Calcium Level 8.2L, Total Bilirubin 1.1H, Aspartate Amino Transf (AST/SGOT) 24, Alanine Aminotransferase (ALT/SGPT) 19, Alkaline Phosphatase 153H, Total Protein 5.6L, Albumin 2.5L 06/30/17 11:52: Glucometer 218H Microbiology 06/28/17 Blood Culture - Preliminary, Resulted No growth 06/28/17 Urine Culture - Final, Complete Klebsiella Pneumoniae See Comments Radiology CT abdomen/pelvis 06/28: Impression: 1: There is a 5 mm stone within the proximal left ureter which causes mild left periureteral and left perinephric fat stranding. There is no hydronephrosis. 2: There are other nonobstructive stones within the left kidney which are also noted on the prior study. 3: Interval progression of hepatomegaly with diffuse fatty infiltration of the liver seen. Assessment/Plan Assessment/Plan Admission Dx Nephrolithiasis Acute renal insufficiency Urinary tract infection with sepsis Plan Nephrolithiasis- 5 mm stone noted, started on alfuzosin and IVF, pain control, straining urine -Remains present per x-ray, if creatinine remains elevated, may need transfer for Urology consultation if worsening before tomorrow am Acute renal insufficiency- likely due to combination of volume depletion and nephrolithiasis -IVF, monitor closely -06/30- stable to worsening, monitor closely and discussed with her that we may consider transfer if continues to worsen in spite of aggressive fluid rehydration and treatment as above for renal stone Urinary tract infection with sepsis- febrile, tachycardic, leukocytosis, no elevation in lactic acid -Ceftriaxone, culture pending 06/30- remains febrile, overnight has had marked tachycardia which is minimally responsive to fluid- given 3 liter bolus and increased rate to 250 ml/hr, placed on telemetry and given a dose of cefepime and zosyn because blood culture species was not yet available, however this morning confirms both blood and urine with klebsiella pneumoniae sensitive to ceftriaxone, will continue ceftriaxone and aggressive fluids, if kidney function continues to worsen may need transfer Delirium- likely due to sepsis, is oriented but occasionally speaking about things that do not make sense and daughter states patient has reported visual hallucinations -Chlorazepate prn on home medication list- unclear how often she was taking and if it was scheduled, there may be some component of benzodiazepine withdrawal as well- will resume home chlorazepate -Treating infection as noted above DMII with hyperglycemia- came in without diagnosis or medication for diabetes, although she apparently reported to nurse she has known about high blood sugar before, and hvac/r service technician review this am does note dulaglutide and glimeperide on home meds- held due to renal function and dulaglutide not yet due -Started levemir and scheduled novolog with meals given marked hyperglycemia, continue sliding scale insulin in addition Chronic back pain- continued on presumed home morphine and oxycodone and pregabalin- was on high dose pregabalin, will decrease per renal function. After hvac/r service technician medication review, noted that she was on hydrocodone at home, will change back to hydrocodone. Holding nabumetone and methocarbamol due to renal function. HTN- on lisinopril and metoprolol at home, hold lisinopril due to renal function. BP better today, restart metoprolol given her tachycardia which I suspect is multifactorial- infection, benzo withdrawal and possible rebound without metoprolol last 24 hours DVT ppx- enoxaparin Diagnosis/Problems: Clinical Quality Measures DVT/VTE Risk/Contraindication: Risk Factor Score Per Nursin RFS Level Per Nursing on Admit: 2=Moderate GENE MANCIA MD Jun 30, 2017 14:39
[2017-06-30 14:59] LABS: CALCIUM 8.4 MG/DL (8.5-10.1); CREATININE SERUM 2.76 MG/DL (0.60-1.30); POTASSIUM 4.2 MMOL/L (3.6-5.0)
[2017-06-30] MEDS ORDERED: CLORAZEPATE 7.5 MG (TRANXENE) TAB PO PRN (15:00)
[2017-06-30] MEDS ORDERED: HYDROcodone/APAP 5 MG/325 MG (LORTAB) TAB PO PRN (15:00)
[2017-06-30] MEDS ORDERED: oxyCODONE/APAP 10/325MG (PERCOCET 10) TABLET PO PRN (16:30)
[2017-06-30] MEDS: ENOXAPARIN 40 MG/0.4 ML (LOVENOX) SYR SQ SCH (17:19)
[2017-06-30] MEDS: ALFUZOSIN HCL 10 MG TAB (UROXATRAL) PO SCH (17:20)
--- NOTE | 2017-06-30 20:36 | Discharge Summary ---
Diagnosis/Chief Complaint Date of Admission Jun 30, 2017 at 15:04 Date of Discharge Jun 30, 2017 at 19:55 Admission Diagnosis Admission Diagnosis Nephrolithiasis Acute renal insufficiency Urinary tract infection with sepsis Discharge Diagnosis Nephrolithiasis- 5 mm stone noted, started on alfuzosin and IVF, pain control, straining urine -Remains present per x-ray, if creatinine remains elevated, may need transfer for Urology consultation if worsening before tomorrow am 06/30 pm- creatinine worsening, patient transferred to [place] Acute renal insufficiency- likely due to combination of volume depletion and nephrolithiasis -IVF, monitor closely -06/30- stable to worsening, monitor closely and discussed with her that we may consider transfer if continues to worsen in spite of aggressive fluid rehydration and treatment as above for renal stone 06/30 pm- creatinine worsening, patient transferred to [place] Urinary tract infection with sepsis- febrile, tachycardic, leukocytosis, no elevation in lactic acid -Ceftriaxone, culture pending 06/30- remains febrile, overnight has had marked tachycardia which is minimally responsive to fluid- given 3 liter bolus and increased rate to 250 ml/hr, placed on telemetry and given a dose of cefepime and zosyn because blood culture species was not yet available, however this morning confirms both blood and urine with klebsiella pneumoniae sensitive to ceftriaxone, will continue ceftriaxone and aggressive fluids, if kidney function continues to worsen may need transfer 06/30 pm- creatinine worsening, patient transferred to [place] Delirium- likely due to sepsis, is oriented but occasionally speaking about things that do not make sense and daughter states patient has reported visual hallucinations -Chlorazepate prn on home medication list- unclear how often she was taking and if it was scheduled, there may be some component of benzodiazepine withdrawal as well- resumed home chlorazepate -Treating infection as noted above DMII with hyperglycemia- came in without diagnosis or medication for diabetes, although she apparently reported to nurse she has known about high blood sugar before, and pharmacy technician program director review this am does note dulaglutide and glimeperide on home meds- held due to renal function and dulaglutide not yet due -Started levemir and scheduled novolog with meals given marked hyperglycemia, continue sliding scale insulin in addition Chronic back pain- continued on presumed home morphine and oxycodone and pregabalin- was on high dose pregabalin, will decrease per renal function. After pharmacy technician program director medication review, noted that she was on hydrocodone at home, will change back to hydrocodone. Holding nabumetone and methocarbamol due to renal function. HTN- on lisinopril and metoprolol at home, hold lisinopril due to renal function. BP better today, restarted metoprolol given her tachycardia which I suspect is multifactorial- infection, benzo withdrawal and possible rebound without metoprolol last 24 hours Chief Complaint/HPI Chief Complaint/HPI 37 yo female presented to ER after not feeling well for about 4 weeks. She states she initially was having headaches, nasal congestion and respiratory type symptoms. She has been seen multiple times for those. She was diagnosed with a UTI not long ago and was still taking Macrobid when she came in this time. She came in due to spiking fevers up to 104 and severe lower left pelvic pain that radiates across pelvis and up both sides of lower abdomen into back. Discharge Summary-Simple/Stand Consultations Discharge Physical Examination Allergies: Coded Allergies: levofloxacin (Unverified Allergy, Mild, 03/21/09) Quinolones (Verified Allergy, Unknown, 02/10/06) shellfish derived (Verified Allergy, Unknown, 05/27/15) Uncoded Allergies: CLINONE (Allergy, Mild, 03/21/09) Vitals & I&Os Vital Sign - Last 12Hours Date Time Temp Pulse Resp B/P (MAP) Pulse Ox O2 Delivery O2 Flow Rate FiO2 06/30/17 19:49 113 20 114/70 96 Room Air 06/30/17 16:00 96.9 Intake and Output 07/01/17 00:00 Intake Total 1420 ml Output Total 500 ml Balance 920 ml Hospital Course See final discharge diagnosis. Labs Laboratory Tests Test 06/29/17 05:53 06/29/17 05:54 06/29/17 11:19 06/29/17 14:00 Range/Units White Blood Count 14.0 H 4.3-11.0 10^3/uL Red Blood Count 3.02 L 4.35-5.85 10^6/uL Hemoglobin 9.0 L 11.5-16.0 G/DL Hematocrit 28 L 35-52 % Mean Corpuscular Volume 91 80-99 FL Mean Corpuscular Hemoglobin 30 25-34 PG Mean Corpuscular Hemoglobin Concent 33 32-36 G/DL Red Cell Distribution Width 13.2 10.0-14.5 % Platelet Count 232 130-400 10^3/uL Mean Platelet Volume 10.6 H 7.4-10.4 FL Neutrophils (%) (Auto) 91 H 42-75 % Lymphocytes (%) (Auto) 4 L 12-44 % Monocytes (%) (Auto) 4 0-12 % Eosinophils (%) (Auto) 1 0-10 % Basophils (%) (Auto) 0 0-10 % Neutrophils # (Auto) 12.7 H 1.8-7.8 X 10^3 Lymphocytes # (Auto) 0.6 L 1.0-4.0 X 10^3 Monocytes # (Auto) 0.6 0.0-1.0 X 10^3 Eosinophils # (Auto) 0.1 0.0-0.3 10^3/uL Basophils # (Auto) 0.0 0.0-0.1 10^3/uL Sodium Level 133 L 133 L 135-145 MMOL/L Potassium Level 4.2 4.4 3.6-5.0 MMOL/L Chloride Level 101 108 H 98-107 MMOL/L Carbon Dioxide Level 22 17 L 21-32 MMOL/L Anion Gap 10 8 5-14 MMOL/L Blood Urea Nitrogen 25 H 25 H 7-18 MG/DL Creatinine 2.40 H 2.38 H 0.60-1.30 MG/DL Estimat Glomerular Filtration Rate 23 23 BUN/Creatinine Ratio 10 11 Glucose Level 591 *H 417 *H 70-105 MG/DL Hemoglobin A1c 8.3 H 4.5-6.2 % Calcium Level 9.5 9.2 8.5-10.1 MG/DL Glucometer 518 *H 414 *H 70-110 MG/DL Test 06/29/17 15:36 06/29/17 20:30 06/29/17 21:08 06/30/17 05:33 Range/Units Glucometer 383 H 243 H 172 H 70-110 MG/DL White Blood Count 15.3 H 4.3-11.0 10^3/uL Red Blood Count 2.76 L 4.35-5.85 10^6/uL Hemoglobin 8.2 L 11.5-16.0 G/DL Hematocrit 25 L 35-52 % Mean Corpuscular Volume 92 80-99 FL Mean Corpuscular Hemoglobin 30 25-34 PG Mean Corpuscular Hemoglobin Concent 32 32-36 G/DL Red Cell Distribution Width 13.6 10.0-14.5 % Platelet Count 210 130-400 10^3/uL Mean Platelet Volume 10.4 7.4-10.4 FL Neutrophils (%) (Auto) 88 H 42-75 % Lymphocytes (%) (Auto) 6 L 12-44 % Monocytes (%) (Auto) 5 0-12 % Eosinophils (%) (Auto) 1 0-10 % Basophils (%) (Auto) 0 0-10 % Neutrophils # (Auto) 13.6 H 1.8-7.8 X 10^3 Lymphocytes # (Auto) 1.0 1.0-4.0 X 10^3 Monocytes # (Auto) 0.7 0.0-1.0 X 10^3 Eosinophils # (Auto) 0.1 0.0-0.3 10^3/uL Basophils # (Auto) 0.0 0.0-0.1 10^3/uL Sodium Level 137 135-145 MMOL/L Potassium Level 3.9 3.6-5.0 MMOL/L Chloride Level 110 H 98-107 MMOL/L Carbon Dioxide Level 17 L 21-32 MMOL/L Anion Gap 10 5-14 MMOL/L Blood Urea Nitrogen 25 H 7-18 MG/DL Creatinine 2.33 H 0.60-1.30 MG/DL Estimat Glomerular Filtration Rate 24 BUN/Creatinine Ratio 11 Glucose Level 217 H 70-105 MG/DL Lactic Acid Level 0.91 0.50-2.00 MMOL/L Calcium Level 8.8 8.5-10.1 MG/DL Total Bilirubin 1.0 0.1-1.0 MG/DL Aspartate Amino Transf (AST/SGOT) 17 5-34 U/L Alanine Aminotransferase (ALT/SGPT) 19 0-55 U/L Alkaline Phosphatase 144 H 40-136 U/L Total Protein 5.8 L 6.4-8.2 GM/DL Albumin 2.7 L 3.2-4.5 GM/DL Test 06/30/17 07:25 06/30/17 11:52 06/30/17 14:31 06/30/17 16:09 Range/Units White Blood Count 15.1 H 4.3-11.0 10^3/uL Red Blood Count 2.66 L 4.35-5.85 10^6/uL Hemoglobin 7.9 L 11.5-16.0 G/DL Hematocrit 25 L 35-52 % Mean Corpuscular Volume 93 80-99 FL Mean Corpuscular Hemoglobin 30 25-34 PG Mean Corpuscular Hemoglobin Concent 32 32-36 G/DL Red Cell Distribution Width 14.1 10.0-14.5 % Platelet Count 223 130-400 10^3/uL Mean Platelet Volume 10.3 7.4-10.4 FL Sodium Level 138 137 135-145 MMOL/L Potassium Level 4.2 4.2 3.6-5.0 MMOL/L Chloride Level 114 H 111 H 98-107 MMOL/L Carbon Dioxide Level 12 L 15 L 21-32 MMOL/L Anion Gap 12 11 5-14 MMOL/L Blood Urea Nitrogen 24 H 28 H 7-18 MG/DL Creatinine 2.44 H 2.76 H 0.60-1.30 MG/DL Estimat Glomerular Filtration Rate 22 19 BUN/Creatinine Ratio 10 10 Glucose Level 220 H 246 H 70-105 MG/DL Calcium Level 8.2 L 8.4 L 8.5-10.1 MG/DL Total Bilirubin 1.1 H 0.1-1.0 MG/DL Aspartate Amino Transf (AST/SGOT) 24 5-34 U/L Alanine Aminotransferase (ALT/SGPT) 19 0-55 U/L Alkaline Phosphatase 153 H 40-136 U/L Total Protein 5.6 L 6.4-8.2 GM/DL Albumin 2.5 L 3.2-4.5 GM/DL Glucometer 218 H 206 H 70-110 MG/DL Radiology Reviewed CT abdomen/pelvis 06/28: Impression: 1: There is a 5 mm stone within the proximal left ureter which causes mild left periureteral and left perinephric fat stranding. There is no hydronephrosis. 2: There are other nonobstructive stones within the left kidney which are also noted on the prior study. 3: Interval progression of hepatomegaly with diffuse fatty infiltration of the liver seen. Discharge Instructions to patient/family Please see electronic discharge instructions given to patient. Discharge Medications Reviewed and agree with Discharge Medication list on patient's Discharge Instruction sheet Clinical Quality Measures DVT/VTE Risk/Contraindication: Risk Factor Score Per Nursin RFS Level Per Nursing on Admit: 2=Moderate Copy Copies To 1: KarliFAZAL Reyes BETHANY N MD Jun 30, 2017 20:36
[2017-06-30] MEDS ORDERED: meTOprolol TARTRATE 25 MG (LOPRESSOR) TABLET PO SCH (21:00)
[2017-07-01] MEDS ORDERED: PREGABALIN 75 MG (LYRICA) CAP PO SCH (09:00)
--- NOTE | 2017-07-03 15:03 | Physician Query Clarification ---
PQ-Conflicting Diagnosis Admission/Discharge Admission Date: Jun 28, 2017 at 20:38 Discharge Date: Jun 30, 2017 at 19:55 The medical record reflects the following clinical scenario: History/Risk Factors: Sepsis UTI/Ureteral calculus Volume Depletion Clinical Findings:BUN 23 rising to 28, Creatinine 2 on admission rising to 2.76 , Est GFR 28 falling to 19 at time of transfer. Creatinine worsening-Progress note of 06/30. Treatment: IV Sodium Chloride, IV Lactated Ringers 1,000ml@0mls/hr Wide Open Transfer to [facility] Question: Do you agree with the impression of Acute Kidney Injury(non traumatic) per Dr. Shade Guy? Please document a response below. Also, if agree, please indicate if present on admission or developed after. PHYSICIAN RESPONSE Do you agree w/Consulting Dx?: Yes (JANEE present on admission) In responding to this query, please exercise your independent professional judgment. The purpose of this communication is to more accurately reflect the complexity of your patients condition. The fact that a question is asked does not imply that any particular answer is desired or expected. Thank you for your timely response to this clarification. Requestors name: Nicola Estrada [facility] Phone # ext [phone] or [phone] THIS PHYSICIAN QUERY FORM IS A PERMANENT PART OF THE MEDICAL RECORD NICOLA ESTRADA Jul 03, 2017 15:03 GENE MANCIA MD Jul 08, 2017 16:43
--- NOTE | 2017-07-03 15:10 | Physician Query Clarification ---
PQ-Conflicting Diagnosis Admission/Discharge Admission Date: Jun 28, 2017 at 20:38 Discharge Date: Jun 30, 2017 at 19:55 The medical record reflects the following clinical scenario: History/Risk Factors: Sepsis UTI/Ureteral Calculus Clinical Findings: Urine culture and blood cultures positive for Klebsiella Pneumoniae Treatment: IV Ceftriaxone Sodium 1,000mg/Sodium Chloride, IV Piperacillin Sod/Tazobactam Sod, IV Cefepime HCI Question: Do you agree with the impression of Acute Pyelonephritis per Dr. Shade Guy? Please document a response below. PHYSICIAN RESPONSE Do you agree w/Consulting Dx?: Yes In responding to this query, please exercise your independent professional judgment. The purpose of this communication is to more accurately reflect the complexity of your patients condition. The fact that a question is asked does not imply that any particular answer is desired or expected. Thank you for your timely response to this clarification. Requestors name: Rachel Estrada [facility] Phone # ext [phone] or [phone] THIS PHYSICIAN QUERY FORM IS A PERMANENT PART OF THE MEDICAL RECORD RACHEL ESTRADA Jul 03, 2017 15:10 GENE MANCIA MD Jul 08, 2017 16:44
== END 2017-06-30 19:55 | disposition short-term general hospital (02) | DRG 872 ==
LOC: EDUNIT# 17:55 → ER 17:56 → 4TH 20:38 → UNDOADMOB 21:16 → 4TH 21:16 → OBSVTOIN 06-30 15:04 → INTOOBSV 06-30 15:04 → UNDODISIN 06-30 19:55
PROVIDERS: ADMIT Family Medicine; ATTEND Family Medicine
DX: A41.59 Other Gram-negative sepsis (principal); N10 Acute pyelonephritis; N39.0 Urinary tract infection, site not specified; B96.1 Klebsiella pneumoniae [K. pneumoniae] as the cause of diseases classified elsewhere; N20.2 Calculus of kidney with calculus of ureter; N17.9 Acute kidney failure, unspecified; F13.231 Sedative, hypnotic or anxiolytic dependence with withdrawal delirium; E87.1 Hypo-osmolality and hyponatremia; E11.65 Type 2 diabetes mellitus with hyperglycemia; E86.9 Volume depletion, unspecified; I10 Essential (primary) hypertension; K76.0 Fatty (change of) liver, not elsewhere classified; M54.9 Dorsalgia, unspecified; F17.210 Nicotine dependence, cigarettes, uncomplicated; J45.909 Unspecified asthma, uncomplicated; G43.909 Migraine, unspecified, not intractable, without status migrainosus; E83.42 Hypomagnesemia; D64.9 Anemia, unspecified; F41.9 Anxiety disorder, unspecified; K59.00 Constipation, unspecified; F43.10 Post-traumatic stress disorder, unspecified; F32.9 Major depressive disorder, single episode, unspecified; E66.9 Obesity, unspecified; M06.9 Rheumatoid arthritis, unspecified; Z68.38 Body mass index [BMI] 38.0-38.9, adult
CPT/HCPCS: 36415; 74000; 74176; 80048; 80053; 80306; 81000; 82962; 83036; 83605; 83690; 83735; 84703; 85007; 85025; 85027; 87040; 87077; 87088; 87186; 96361; 96365; 96375

== ENCOUNTER 2017-08-14 12:10 | Outpatient (RCR) | payer MEDICAID ==
[2017-08-12 15:17] LABS: CREATININE SERUM 1.56 MG/DL (0.60-1.30); PHOSPHORUS 3.2 MG/DL (2.3-4.7); POTASSIUM 4.5 MMOL/L (3.6-5.0); URIC ACID 4.8 MG/DL (2.6-7.2)
[~2017-08-14 12:10] MED LIST changes: +ACHD5005 PO; +CLOR15TA PO; +DULA1.5P2 PO; +FENO145T20 PO; +FLUT16SP22 NSEACH; +GLIM2TAB PO; +METH500T7 PO; +METH750T3 PO; +METO-333 PO; +MORP-33 PO; +NABU500T PO; +NITR100C10; +NITR100C10 PO; +SUCR1TAB PO
== END 2017-11-10 | disposition home or self-care (01) ==
LOC: LAB 12:10
PROVIDERS: ATTEND Specialist
DX: N20.1 Calculus of ureter (principal)
CPT/HCPCS: 36415; 80048; 82340; 82507; 83735; 83945; 83970; 84075; 84100; 84105; 84550; 84560

== ENCOUNTER 2018-10-08 19:32 | Emergency (ER) | payer MEDICAID ==
[~2018-10-08] VITALS: Ht 160 cm; Wt 95.3 kg
[~2018-10-08 19:32] MED LIST changes: -FENO145T20 PO; +FENO145T37 PO; +HYDR-4226 PO; -HYDR-757 PO
--- OUTSIDE RECORDS SUMMARY | 2018-10-08 19:39 | XMS REPORT ---
Author Author ART JONES Organization [facility] Address [address] [place] [address] Care Team Providers Care Soda Dialyzer Name Role Phone ART JONES Unavailable PROBLEMS Type Condition ICD9-CM Code HSR12-LO Code Onset Dates Condition Status SNOMED Code Problem Edema of both feet R60.0 Active 670126451 Problem Chronic migraine G43.709 Active 87756511 Problem Mixed hyperlipidemia E78.2 Active 496680259 Problem Benzodiazepine dependence F13.20 Active 242260894 Problem Narcotic dependence F11.20 Active 68102241 Problem Type 2 diabetes mellitus with diabetic neuropathy, unspecified E11.40 Active 74025624 Problem USP 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 Z79.4 Active 167765714 Problem Generalized anxiety disorder F41.1 Active 18452493 Problem Chronic pain disorder G89.4 Active 487152598 Problem Asthma J45.909 Active 048174999 Problem Spinal stenosis, lumbar region M48.06 Active 99434237 Problem Anxiety F41.9 Active 61234678 Problem Radiculopathy of lumbar region M54.16 Active 496182514 Problem Chronic pain G89.29 Active 40738554 Problem Gastroesophageal reflux disease without esophagitis K21.9 Active 654629831 Problem Bulging lumbar disc M51.26 Active 379351013 Problem HSV (herpes simplex virus) infection B00.9 Active 47918126 Problem Essential hypertension I10 Active 58756589 Problem Tobacco abuse Z72.0 Active 75758733 ALLERGIES No Information ENCOUNTERS Encounter Location Date Diagnosis [facility] [id number] [address] Aug, [facility] [id number] [address] Jul, Well woman exam with routine gynecological exam Z01.419 and Screening for STD (sexually transmitted disease) Z11.3 [facility] [address] [address]- [address]68 Jul, [place] [address] 39584- 2717 Jul, Anxiety F41.9 ; Chronic pain disorder G89.4 ; Benzodiazepine dependence F13.20 ; Narcotic dependence F11.20 and Suicidal thoughts R45.851 [place] [address] 67235- 6667 Jul, [place] [address] 18079- 4519 21 Jun, 2018 Chronic migraine G43.709 [place] [address] 38958- 5701 12 Jun, 2018 [place] [address] 87003- 3778 07 Jun, 2018 [place] [address] 91805- 9444 07 Jun, 2018 [place] [address] 84303- 4556 06 Jun, 2018 Asthma J45.909 [place] [address] 91218- 2877 04 Jun, 2018 Type 2 diabetes mellitus with diabetic neuropathy, unspecified E11.40 ; Chronic pain disorder G89.4 and Generalized anxiety disorder F41.1 [place] [address] 53463- 8736 May, Chronic pain G89.29 and Anxiety F41.9 [place] [address] 96049- 7743 May, [place] [address] 02175- 7255 May, Encounter for Depo-Provera contraception Z30.42 [place] [address] 05195- 8975 May, [facility] [id number] [place] [address] 60615- 8776 Apr, Chronic pain G89.29 [facility] [address] 16937- 2246 Apr, Chronic pain G89.29 and Anxiety F41.9 [facility] [address] 25952- 4376 Mar, HSV (herpes simplex virus) infection B00.9 ; Anxiety F41.9 and Chronic pain G89.29 [place] [address] 10021- 9298 Mar, [facility] [address] 39179- 4836 Mar, Chronic pain G89.29 [place] [address] 37627- 2299 February, Chronic pain G89.29 [facility] [address] 55139- 4459 Jan, Chronic pain G89.29 [facility] [address] 71348- 6653 Jan, USP 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 Z79.4 [place] [address] 45302- 5728 Jan, Encounter for Depo-Provera contraception Z30.42 [facility] [id number] [place] [address] 20348- 3479 Jan, [facility] [address] 43630- 2245 Jan, Chronic pain G89.29 and Anxiety F41.9 [facility] [address] 74445- 4108 Jan, [facility] [address] [place] [address] 87[address] 14 Dec, 2017 [place] [id number] [place] [address] 88398- 6780 14 Dec, 2017 Gastroesophageal reflux disease without esophagitis K21.9 and Anxiety F41.9 [place] [id number] [place] [address] 57744- 0254 14 Dec, 2017 Essential hypertension I10 ; Mixed hyperlipidemia E78.2 ; Type 2 diabetes mellitus with diabetic neuropathy, unspecified E11.40 ; manager intermediate 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 Z79.4 ; Chronic pain G89.29 ; HSV (herpes simplex virus) infection B00.9 ; Anxiety F41.9 and Gastroesophageal reflux disease without esophagitis K21.9 [place] [address] 77455- 7654 07 Dec, 2017 Chronic pain G89.29 and Chronic migraine G43.709 [place] [address] 37454- 7689 Nov, [place] [address] 98524- 8937 08 Nov, 2017 Essential hypertension I10 and Chronic pain G89.29 [place] [id number] [place] [address] 87039- 3247 05 Nov, 2017 Chronic pain G89.29 ; Essential hypertension I10 and Type 2 diabetes mellitus without complication E11.9 [place] [id number] [place] [address] 74963- 6732 Oct, Chronic pain G89.29 [place] [id number] [place] [address] 02686- 5638 Oct, [place] [id number] [place] [address] 53780- 9817 Sep, Type 2 diabetes mellitus without complication E11.9 ; Essential hypertension I10 ; manager intermediate (current) use of insulin Z79.4 ; Chronic migraine G43.709 ; Chronic pain G89.29 and Acute non-recurrent maxillary sinusitis J01.00 [facility] [address] [place] [address] 76733- 0967 19 Sep, 2017 Encounter for Depo-Provera contraception Z30.42 [facility] [id number] [place] [address] 41516- 1719 Sep, Chronic pain G89.29 and Radiculopathy of lumbar region M54.16 [facility] [id number] [place] [address] 48486- 2235 Sep, [facility] [id number] [place] [address] 75570- 7066 Sep, [facility] [id number] [place] [address] 98227- 5854 Aug, Type 2 diabetes mellitus without complication E11.9 [place] [id number] [place] [address] 65008- 0017 Aug, [facility] [id number] [place] [address] 49328- 3465 Aug, Radiculopathy of lumbar region M54.16 and Chronic pain G89.29 [place] [id number] [place] [address] 53772- 2073 Aug, Type 2 diabetes mellitus without complication E11.9 [place] [id number] [place] [address] 44689- 2502 Aug, Type 2 diabetes mellitus without complication E11.9 [facility] [id number] [place] [address] 01878- 7172 Jul, Type 2 diabetes mellitus without complication E11.9 [facility] [id number] [place] [address] 53319- 0057 Jul, [facility] [id number] [place] [address] 32393- 0113 Jul, Chronic pain G89.29 [facility] [id number] [place] [address] 73576- 5265 16 Jul, 2017 [facility] [address] [address] 6[address] Jul, [facility] [id number] [place] [address] 25962- 7386 Jul, Type 2 diabetes mellitus without complication E11.9 [facility] [id number] [place] [address] 91539- 2830 16 Jul, 2017 [facility] [id number] [place] [address] 90520- 5445 Jul, Type 2 diabetes mellitus without complication E11.9 [facility] [id number] [place] [address] 04240- 7577 Jul, [facility] [id number] [place] [address] 78121- 1056 Jul, [facility] [id number] [place] [address] 30522- 3624 Jul, [facility] [address] [place] [address] 31395- 3703 27 Jun, 2017 Type 2 diabetes mellitus without complication E11.9 [facility] [address], [place] [address]- 1169 26 Jun, 2017 Chronic migraine G43.709 ; Type 2 diabetes mellitus without complication E11.9 ; Calculus of right kidney N20.0 ; Yeast dermatitis B37.2 and HSV (herpes simplex virus) infection B00.9 [facility] [address] [address] 2688 22 Jun, 2017 Type 2 diabetes mellitus without complication E11.9 [facility] [id number] [place] [address] 54387- 9369 21 Jun, 2017 [facility] [address] [place] [address] 48283- 3798 20 Jun, 2017 Radiculopathy of lumbar region M54.16 and Chronic pain G89.29 [facility] [id number] [place] [address] 50169- 1688 Jun, Encounter for Depo-Provera contraception Z30.42 [facility] [id number] [place] [address] 80198- 2348 Jun, Type 2 diabetes mellitus without complication E11.9 [facility] [address] 06788- 8572 Jun, [facility] [address] 11405 -4602 May, Acute nasopharyngitis (common cold) J00 [address] 78807- 9201 May, Chronic pain G89.29 [place] [address] 32216- 9037 May, Headache following lumbar puncture G97.1 [place] [address] 07371- 8107 May, Radiculopathy of lumbar region M54.[address] 36755- 6044 Apr, [place] [id number] [place] [address] 09928- 0857 Apr, Type 2 diabetes mellitus without complication E11.9 ; Chronic pain G89.29 ; Essential hypertension I10 ; Radiculopathy of lumbar region M54.16 ; Spinal stenosis, lumbar region M48.06 ; Gastroesophageal reflux disease without esophagitis K21.9 ; HSV (herpes simplex virus) infection B00.9 ; Mixed hyperlipidemia E78.2 ; Anxiety F41.9 and Asthma J45.909 [place] [id number] [place] [address] 10308- 9288 Apr, Encounter for Depo-Provera contraception Z30.42 [facility] [address] 40253- 5209 Apr, Chronic pain G89.29 and Anxiety F41.9 [facility] [address] [place] [address] 50344- 6430 Mar, [facility] [id number] [place] [address] 98084- 2913 Mar, [facility] [id number] [place] [address] 20817- 1942 Mar, Mixed hyperlipidemia E78.2 [facility] [id number] [place] [address] 05618- 6985 Mar, Type 2 diabetes mellitus without complication E11.9 ; Chronic pain G89.29 ; Essential hypertension I10 ; Radiculopathy of lumbar region M54.16 ; Spinal stenosis, lumbar region M48.06 ; Gastroesophageal reflux disease without esophagitis K21.9 ; HSV (herpes simplex virus) infection B00.9 ; Mixed hyperlipidemia E78.2 and Anxiety F41.9 [facility] [id number] [place] [address] 04092- 4201 Mar, [facility] [id number] [place] [address] 49055- 0654 Mar, [facility] [id number] [place] [address] 58079- 3889 Mar, [facility] [id number] [place] [address] 68098- 2227 February, Chronic pain G89.29 [facility] [address], [place] [address]- 9965 February, [facility] [id number] [place] [address] 62795- 2890 Jan, Chronic pain G89.29 [facility] [id number] [place] [address] 54989- 6796 Jan, Type 2 diabetes mellitus without complication E11.9 [facility] [id number] [place] [address] 49576- 9261 Jan, [place] [address], [place] [address]- 5594 Jan, [place] [address] [place] [address] 61556- 7076 Jan, [place] [id number] [place] [address] 74144- 2570 Jan, Type 2 diabetes mellitus without complication E11.9 ; Routine gynecological examination Z01.419 ; Chronic pain G89.29 ; Screening breast examination Z12.39 ; Essential hypertension I10 ; Radiculopathy of lumbar region M54.16 ; Spinal stenosis, lumbar region M48.06 ; Gastroesophageal reflux disease without esophagitis K21.9 ; Encounter for surveillance of injectable contraceptive Z30.42 ; HSV (herpes simplex virus) infection B00.9 ; Acute non-recurrent maxillary sinusitis J01.00 and Encounter for Depo-Provera contraception Z30.42 [place] [address] [place] [address] 20805- 3029 28 Dec, 2016 Chronic pain G89.29 [place] [id number] [place] [address] 03539- 5769 17 Dec, 2016 Abnormal ankle brachial index (BERNARDINO) R68.89 [place] [address] [place] [address] 33759- 8493 17 Dec, 2016 [place] [address] [place] [address] 06399- 8390 Dec, Routine gynecological examination Z01.419 ; Chronic pain G89.29 ; Screening breast examination Z12.39 ; Type 2 diabetes mellitus without complication E11.9 ; Essential hypertension I10 ; Radiculopathy of lumbar region M54.16 ; Spinal stenosis, lumbar region M48.06 ; Gastroesophageal reflux disease without esophagitis K21.9 ; Encounter for surveillance of injectable contraceptive Z30.42 ; HSV (herpes simplex virus) infection B00.9 and Allergic rhinitis 477.9 [place] [address] [place] [address] 61172- 6884 Nov, Chronic pain G89.29 [place] [address], [place] [address]- 2050 02 Nov, 2016 Chronic pain G89.29 ; Encounter for Depo-Provera contraception Z30.42 ; Type 2 diabetes mellitus without complication E11.9 ; Essential hypertension I10 ; Radiculopathy of lumbar region M54.16 ; Spinal stenosis, lumbar region M48.06 ; Gastroesophageal reflux disease without esophagitis K21.9 ; Encounter for surveillance of injectable contraceptive Z30.42 ; HSV (herpes simplex virus) infection B00.9 ; Acute non-recurrent maxillary sinusitis J01.00 and Acute mucoid otitis media of both ears H65.113 [place] [id number] [place] [address] 39418- 8500 Oct, [place] [id number] [place] [address] 43926- 8388 Oct, Chronic pain G89.29 [place] [id number] [place] [address] 64275- 9367 Oct, Chronic pain G89.29 [place] [id number] [place] [address] 75662- 0666 Sep, Chronic pain G89.29 ; Type 2 diabetes mellitus without complication E11.9 ; Essential hypertension I10 ; Radiculopathy of lumbar region M54.16 ; Spinal stenosis, lumbar region M48.06 ; Gastroesophageal reflux disease without esophagitis K21.9 ; Encounter for surveillance of injectable contraceptive Z30.42 ; Bilateral cold feet R20.9 ; Pain of left foot M79.672 and Pain in right foot M79.671 [place] [address] [place] [address] 13275- 4341 Sep, [place] [id number] [place] [address] 56573- 2535 Aug, [place] [address] [place] [address] 57284- 9750 Aug, [place] [id number] [place] [address] 14907- 3536 Aug, Chronic pain G89.29 ; Type 2 diabetes mellitus without complication E11.9 ; Essential hypertension I10 ; Rash and nonspecific skin eruption R21 and Upper respiratory infection, acute J06.9 [facility] [id number] [place] [address] 55721- 8787 08 Aug, 2016 [place] [address] 94762- 2459 04 Aug, 2016 [place] [id number] [place] [address] 93947- 3745 Jul, [place] [address] 81858- 2267 05 Jul, 2016 Dysuria R30.0 ; Encounter for Depo-Provera contraception Z30.42 ; Herpes simplex B00.9 ; Nausea & vomiting R11.2 and Asthma J45.909 [place] [id number] [place] [address] 05874- 5360 Jun, Dysuria R30.0 [place] [id number] [place] [address] 27968- 1171 19 Jun, 2016 Dysuria R30.0 [place] [id number] [place] [address] 32165- 9881 15 Jun, 2016 [place] [id number] [place] [address] 73530- 4598 13 Jun, 2016 [place] [id number] [place] [address] 80394- 2976 May, [place] [id number] [place] [address] 74924- 1849 May, [facility] [id number] [place] [address] 13471- 5776 May, Chronic pain G89.29 ; Essential hypertension I10 ; Type 2 diabetes mellitus without complication E11.9 ; Edema of both feet R60.0 and Rash and nonspecific skin eruption R21 [place] [id number] [place] [address] 38646- 5279 Apr, [place] [address] 09256- 0989 Mar, Carpal tunnel syndrome, left upper limb G56.02 and Carpal tunnel syndrome, right upper limb G56.01 [place] [address] 12003- 6886 Mar, [place] [address] 88531- 4366 Mar, Encounter for Depo-Provera contraception Z30.42 [place] [address] 02109- 8141 February, [place] [address] 01602- 0150 February, [place] [id number] [place] [address] 45180- 5021 February, Chronic pain G89.29 ; Essential hypertension I10 ; Type 2 diabetes mellitus without complication E11.9 ; HSV (herpes simplex virus) infection B00.9 ; Anxiety F41.9 ; Hypersomnia G47.10 ; Tobacco abuse Z72.0 ; Hand pain, left M79.642 ; Hand pain, right M79.641 ; Left foot pain M79.672 and Heart palpitations R00.2 [place] [id number] [place] [address] 39766- 6367 Jan, [place] [id number] [place] [address] 93440- 9110 Jan, [place] [id number] [place] [address] 95828- 9024 Jan, [place] [id number] [place] [address] 85286- 9250 Jan, [place] [address] 51476- 4375 14 Jan, 2016 Upper respiratory infection J06.9 and Type 2 diabetes mellitus without complication E11.9 [place] [address] 47638- 2175 Dec, [address] 08727- 8704 Dec, Chronic pain G89.29 ; Essential hypertension I10 ; Type 2 diabetes mellitus without complication E11.9 ; HSV (herpes simplex virus) infection B00.9 ; Anxiety F41.9 ; Upper respiratory infection J06.9 ; Hypersomnia G47.10 and Tobacco abuse Z72.[address] 07821- 4116 Dec, Encounter for Depo-Provera contraception Z30.[address] 77415- 0086 Dec, [address] 57035- 2290 Dec, Chronic pain G89.29 ; Sinusitis J32.9 ; Snoring R06.83 and Daytime hypersomnia G47.[address] 26467- 5404 Nov, HSV (herpes simplex virus) infection B00.9 ; Encounter for Papanicolaou smear for cervical cancer screening Z12.4 ; Screening for STD sexually transmitted disease Z11.3 and Bartholin's gland cyst N75.[address] 79827- 2783 Nov, [address] 27671- 0633 Nov, [address] 55524- 5336 Nov, Essential hypertension I10 ; Type 2 diabetes mellitus without complication E11.9 ; HSV (herpes simplex virus) infection B00.9 ; Spinal stenosis, lumbar region M48.06 and Vaginal yeast infection B37.3 [place] [id number] [place] [address] 40988- 8174 Nov, [facility] [address] 03369- 9371 Nov, [place] [address] 96379- 8320 Oct, [place] [address] 64395- 2918 Oct, HSV (herpes simplex virus) infection B00.9 ; Yeast infection B37.9 ; Change in bowel habit R19.4 ; Nausea & vomiting R11.2 and Gastroesophageal reflux disease without esophagitis K21.9 [place] [address] 55506- 9303 Oct, [address] 97597- 7476 Oct, Type 2 diabetes mellitus without complication E11.9 ; Essential hypertension I10 and Acute maxillary sinusitis, recurrence not specified J01.00 [place] [address] 71616- 8442 Oct, [place] [address] 18920- 4121 Oct, [address] 40832- 1438 Oct, Exposure to head lice Z20.7 ; Blood glucose abnormal R73.09 ; Boil of buttock L02.32 and Type 2 diabetes mellitus without complication E11.9 [place] [address] 51517- 8557 Oct, [place] [address] 97125- 5381 Sep, [address] 24941- 9591 Sep, [place] [id number] [place] [address] 29819- 4366 Aug, Encounter for Depo-Provera contraception Z30.42 [place] [address] 18607- 4559 Aug, Anxiety F41.9 ; Spinal stenosis, lumbar region M48.06 ; Radiculopathy of lumbar region M54.16 ; Asthma J45.909 ; GERD (gastroesophageal reflux disease) K21.9 ; Essential hypertension I10 and Long-term use of high- risk medication Z79.899 [place] [address] 77772- 4099 Jul, [place] [address] 17446- 5094 Jun, Hemorrhoid 455.6 [place] [address] 13501- 2439 08 Jun, 2015 [place] [id number] [place] [address] 33534- 7803 Jun, Anxiety 300.00 ; Asthma 493.90 ; Hyperhidrosis 705.21 ; Chest discomfort 786.59 and Upper respiratory infection 465.9 [place] [id number] [place] [address] 15051- 8334 May, Encounter for Depo-Provera contraception V25.49 [place] [id number] [place] [address] 97446- 0374 May, [place] [address] 50143- 5282 May, [place] [id number] [place] [address] 68042- 8540 May, Spinal stenosis of lumbar region with radiculopathy 724.02 ; Bulging of intervertebral disc between L4 and L5 722.10 ; GERD ( gastroesophageal reflux disease) 530.81 ; Chronic pain 338.29 ; Declining mobility 799.89 and Epigastric pain 789.06 [facility] [id number] [place] [id number] Apr, [facility] [id number] [place] [id number] Apr, Nausea 787.02 and Heart burn 787.1 [facility] [address] [phone] Mar, Lumbago 724.2 ; Vitamin D deficiency 268.9 ; Anxiety 300.00 ; Allergic rhinitis 477.9 and Contraceptive surveillance V25.40 [facility] [id number] [place] [phone] February, 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 ; Chronic pain 338.29 and Vaginal discharge 623.5 [facility] [address] [id number]- 6215 February, [facility] [id number] [place] [address] 60769- 1020 February, [facility] [id number] [place] [address] 82869- 2372 Jan, [facility] [id number] [place] [address] 76480- 4360 Jan, [facility] [id number] [place] [address] 81791- 0698 Dec, [facility] [id number] [place] [address] [id number]- 4274 Dec, [facility] [address] 835742- 7540 Dec, [facility] [id number] [place] [address] 961498- 8799 Dec, [facility] [id number] [place] [address] 87936- 2348 18 Dec, 2014 [facility] [place] [facility] [address] [id number] [place] [address]- 0928 18 Dec, 2014 [facility] [place] [facility] [address] [id number] [place] [address]- 1583 13 Dec, 2014 [facility] [place] [facility] [address] [id number] [place] [address]- 1304 13 Dec, 2014 [facility] [place] [facility] [address] [id number] [place] [address]- 5288 12 Dec, 2014 [facility] [place] [facility] [address] [id number] [place] [address]- 5339 Dec, [facility] [place] [facility] [address] [id number] [place] [address]- 9960 Dec, [facility] [place] [facility] [address] [facility] [id number] [place] [address]- 3579 Dec, [facility] [place] [facility] [address] [facility] [id number] [place] [address]- 1950 Nov, 2014 [facility] [place] [facility] [address] [facility] [id number] [place] [address]- 7225 27 Nov, 2014 [facility] [place] [facility] [address] [facility] [id number] [place] [address]- 7267 24 Nov, 2014 [facility] [place] [facility] [address] [facility] [id number] [place] [address]- 1193 24 Nov, 2014 [facility] [place] [facility] [address] [facility] [id number] [place] [address]- 3566 23 Nov, 2014 [facility] [place] [facility] [address] [id number] [place] [address]- 8120 23 Nov, 2014 [facility] [place] [facility] [address] [facility] [id number] [place] [address]- 3656 16 Nov, 2014 [facility] [place] [facility] [address] [facility] [id number] [place] [address]- 0836 16 Nov, 2014 [facility] [place] [facility] [address] [id number] [place] [address]- 4990 13 Nov, 2014 [facility] [place] [facility] [address] [id number] [place] [address]- 9006 Nov, 2014 [facility] [place] [facility] [address] [id number] [place] [address] 2546 13 Nov, 2014 [facility] [place] [facility] [address] [id number] [place] [address] 2540 Nov, 2014 [facility] [place] [facility] [address] [id number] [place] [address]- 2545 Nov, 2014 [facility] [place] [facility] [address] [id number] [place] [address]- 1886 Nov, 2014 [facility] [place] [facility] [address] [facility] [id number] [place] [address]- 1589 Nov, 2014 [facility] [place] [facility] [address] [facility] [id number] [place] [address]- 3803 Nov, 2014 [facility] [place] [facility] [address] [facility] [id number] [place] [address]- 7994 10 Nov, 2014 [facility] [place] [facility] [address] [facility] [id number] [place] [address]- 9832 Nov, 2014 [facility] [place] [facility] [address] [facility] [id number] [place] [address]- 2548 Nov, 2014 [facility] [place] [facility] [address] [facility] [id number] [place] [address]- 254 Nov, 2014 [facility] [place] [facility] [address] [facility] [id number] [place] [address]- 4269 Nov, 2014 [facility] [place] [facility] [address] [id number] [place] [address]- 5741 Nov, 2014 [facility] [place] [facility] [address] [facility] [id number] [place] [address]- 6040 02 Nov, 2014 [facility] [place] [facility] [address] [facility] [id number] [place] [address]- 2780 31 Oct, 2014 [facility] [address] [id number] [place] [address]- 8624 Oct, [facility] [place] [facility] [address] [id number] [place] [address]- 0032 Oct, [facility] [address] [id number] [place] [address]- 9646 Oct, [facility] [address] [id number] [place] [address]- 6949 Oct, [facility] [address] [id number] [place] [address]- 8232 Oct, [facility] [address] [id number] [place] [address]- 1029 Oct, [facility] [address] [id number] [place] [address]- 1209 Oct, [facility] [address] [id number] [place] [address]- 8835 Oct, [facility] [address] [id number] [place] [address]- 2953 Oct, [facility] [address] [id number] [place] [address]- 4635 Oct, [facility] [place] [facility] [address] [id number] [place] [address]- 3884 Oct, [facility] [place] [facility] [address] [id number] [place] [address]- 2869 Oct, [facility] [place] [facility] [address] [id number] [place] [address]- 1734 Oct, [facility] [place] [facility] [address] [id number] [place] [address]- 8632 Oct, [facility] [place] [facility] [address] [id number] [place] [address]- 1530 Oct, [facility] [place] [facility] [address] [id number] [place] [address]- 0279 15 Oct, 2014 [facility] [place] [facility] [address] [id number] [place] [address]- 5531 Oct, [facility] [place] [facility] [address] [id number] [place] 4560 Oct, [facility] [place] [facility] [address] [id number] [place] [address]- 9554 Oct, [facility] [place] [facility] [address] [id number] [place] [address]- 4857 Oct, [facility] [place] [facility] [address] [id number] [place] [address]- 9785 Sep, [facility] [place] [facility] [address] [id number] [place] [address]- 6137 29 Sep, 2014 [facility] [place] [facility] [address] [id number] [place] [address]- 2973 18 Sep, 2014 [facility] [place] [facility] [address] [id number] [place] [address]- 0247 18 Sep, 2014 [facility] [place] [facility] [address] [id number] [place] [address]- 5865 Sep, [facility] [place] [facility] [address] [id number] [place] [address]- 1196 17 Sep, 2014 [facility] [place] [facility] [address] [id number] [place] [address]- 0250 15 Sep, 2014 [facility] [place] [facility] [address] [id number] [place] [address]- 0361 15 Sep, 2014 [facility] [place] [facility] [address] [id number] [place] [address]- 0365 Sep, [facility] [place] [facility] [address] [id number] [place] 3851 Sep, [facility] [place] [facility] [address] [id number] [place] [address]- 3661 Sep, [facility] [place] [facility] [address] [id number] [place] [address]- 2509 Sep, [facility] [place] [facility] [address] [id number] [place] [address]- 0360 Sep, [facility] [place] [facility] [address] [id number] [place] [address]- 2641 Sep, [facility] [place] [facility] [address] [id number] [place] [address]- 9310 Sep, [facility] [place] [facility] [address] [id number] [place] [address]- 7945 Sep, [facility] [place] [facility] [address] [id number] [place] [address]- 3565 Sep, [facility] [place] [facility] [address] [id number] [place] [address]- 0693 Sep, [facility] [place] [facility] [address] [id number] [place] [address]- 3081 Sep, [facility] [place] [facility] [address] [id number] [place] [address]- 9409 Sep, [facility] [place] [facility] [address] [id number] [place] [address]- 5147 Aug, [facility] [place] [facility] [address] [id number] [place] [address]- 0475 Aug, [facility] [place] [facility] [address] [id number], [place] [address]- 6060 Aug, [facility] [place] [facility] [address] [id number] [place] [address]- 7317 Aug, [facility] [place] [facility] [address] [id number] [place] [address]- 2281 Aug, [facility] [place] [facility] [address] [id number] [place] [address]- 1690 Aug, [facility] [place] [facility] [address] [id number] [place] [address]- 1961 10 Aug, 2014 [facility] [place] [facility] [address] [id number] [place] [address]- 9391 Aug, [facility] [place] [facility] [address] [id number] [place] 9805 Aug, [facility] [place] [facility] [address] [id number] [place] [address]- 0419 Jul, [facility] [place] [facility] [address] [id number] [place] [address]- 1424 Jul, [facility] [place] [facility] [address] [id number] [place] [address]- 8650 Jul, [facility] [place] [facility] [address] [id number] [place] [address]- 3989 Jul, [facility] [place] [facility] [address] [id number] [place] [address]- 7149 Jul, [facility] [place] [facility] [address] [id number] [place] [address]- 4510 Jul, [facility] [place] [facility] [address] [id number] [place] [address]- 0363 Jul, [facility] [place] [facility] [address] [id number] [place] [address]- 6461 Jul, [facility] [place] [facility] [address] [id number] [place] [address]- 3047 Jul, [facility] [place] [facility] [address] [id number] [place] [address]- 5204 10 Jul, 2014 [facility] [place] [facility] [address] [id number] [place] [address]- 2091 Jul, [facility] [place] [facility] [address] [id number] [place] [address]- 6660 Jul, [facility] [place] [facility] [address] [id number] [place] [address]- 7398 Jul, [facility] [place] [facility] [address] [id number] [place] [address]- 9965 07 Jul, 2014 [facility] [place] [facility] [address] [id number] [place] [address]- 7819 30 Jun, 2013 [facility] [place] [facility] [address] [id number] [place] [address]- 4910 30 Sep, 2013 [facility] [place] [facility] [address] [id number] [place] [address]- 0485 25 Jun, 2013 [facility] [place] [facility] [address] [id number] [place] [address]- 2873 25 Jun, 2013 [facility] [place] [facility] [address] [id number] [place] [address]- 3675 25 Jun, 2013 [facility] [place] [facility] [address] [id number] [place] [address]- 7241 25 Jun, 2013 [facility] [place] [facility] [address] [id number] [place] [address]- 9433 24 Jun, 2013 [facility] [place] [facility] [address] [id number] [place] [address]- 1658 24 Jun, 2013 [facility] [place] [facility] [address] [id number] [place] [address]- 7731 22 Jun, 2013 [facility] [place] [facility] [address] [id number] [place] [address] 2543 22 Jun, 2013 [facility] [place] [facility] [address] [id number], [place] [address]- 0432 17 Jun, 2013 [facility] [place] [facility] [address] [id number] [place] [address] 2546 17 Sep, 2013 [facility] [place] [facility] [address] [id number] [place] [address]- 2545 16 Sep, 2013 [facility] [place] [facility] [address] [id number] [place] [address]- 2548 16 Sep, 2013 [facility] [place] [facility] [address] [id number] [place] [address]- 1893 15 Jun, 2013 [facility] [place] [facility] [address] [id number] [place] [address]- 2067 15 Jun, 2013 [facility] [place] [facility] [address] [id number] [place] [address]- 6636 12 Jun, 2013 [facility] [place] [facility] [address] [id number] [place] [address]- 0622 12 Jun, 2013 [facility] [place] [facility] [address] [id number] [place] [address]- 2166 11 Jun, 2013 [facility] [place] [facility] [address] [id number] [place] [address]- 0237 11 Jun, 2013 [facility] [place] [facility] [address] [id number] [place] [address]- 3984 11 Jun, 2013 [facility] [place] [facility] [address] [id number] [place] [address]- 5705 11 Jun, 2013 [facility] [place] [facility] [address] [id number] [place] [address]- 2834 09 Jun, 2013 [facility] [place] [facility] [address] [id number] [place] [address]- 4926 09 Jun, 2013 [facility] [place] [facility] [address] [id number] [place] [address]- 8314 Jun, 2013 [facility] [place] [facility] [address] [id number] [place] [address]- 5922 Jun, 2013 [facility] [place] [facility] [address] [id number] [place] [address]- 2547 May, [facility] [place] [facility] [address] [id number] [place] [address]- 9285 May, [facility] [place] [facility] [address] [id number] [place] [address]- 9120 May, [facility] [place] [facility] [address] [id number] [place] [address]- 2589 May, [facility] [place] [facility] [address] [id number] [place] [address]- 9343 May, [facility] [place] [facility] [address] [id number] [place] [address]- 1633 May, [facility] [place] [facility] [address] [id number] [place] [address]- 5481 May, [facility] [place] [facility] [address] [id number] [place] [address]- 7124 May, [facility] [place] [facility] [address] [id number] [place] [address]- 2031 May, [facility] [place] [facility] [address] [id number] [place] [address]- 2217 May, [facility] [place] [facility] [address] [id number] [place] [address]- 1165 May, [facility] [place] [facility] [address] [id number] [place] [address]- 2392 May, [facility] [place] [facility] [address] [id number] [place] [address]- 9128 May, [facility] [place] [facility] [address] [id number] [place] [address]- 6904 Apr, [facility] [place] [facility] [address] [id number] [place] [address]- 2368 Apr, [facility] [place] [facility] [address] [id number] [place] [address]- 2697 Apr, [facility] [place] [facility] [address] [id number] [place] [address]- 6283 Apr, [facility] [place] [facility] [address] [id number] [place] [address]- 2302 Apr, [facility] [place] [facility] [address] [id number] [place] [address]- 6834 Mar, [facility] [place] [facility] [address] [id number] [place] [address]- 9247 Mar, [facility] [place] [facility] [address] [id number] [place] [address]- 1202 Mar, [facility] [place] [facility] [address] [id number] [place] [address]- 7713 February, [facility] [place] [facility] [address] [id number] [place] [address]- 6955 February, [facility] [place] [facility] [address] [id number] [place] [address]- 2044 February, [facility] [place] [facility] [address] [id number] [place] [address]- 4863 February, [facility] [place] [facility] [address] [id number] [place] [address]- 9082 February, [facility] [place] [facility] [address] [id number] [place] [address]- 4470 February, [facility] [place] [facility] [address] [id number] [place] [address]- 3515 February, [facility] [place] [facility] [address] [id number] [place] [address]- 0975 February, [facility] [place] [facility] [address] [id number] [place] [address]- 4180 February, [facility] [place] [facility] [address] [id number] [place] [address]- 1853 Jan, [facility] [place] [facility] [address] [id number] [place] [address]- 2676 Jan, [facility] [place] [facility] [address] [id number] [place] [address]- 7662 Jan, [facility] [place] [facility] [address] [id number] [place] [address]- 0701 Jan, [facility] [place] [facility] [address] [id number] [place] [address]- 5670 Jan, [facility] [place] [facility] [address] [id number] [place] [address]- 6476 05 Dec, 2013 [facility] [place] [facility] [address] [id number] [place] [address]- 6962 Dec, [facility] [place] [facility] [address] [id number] [place] [address]- 9936 Dec, [facility] [place] [facility] [address] [id number] [place] [address]- 3781 Dec, [facility] [place] [facility] [address] [id number] [place] [address]- 0200 Dec, [facility] [place] [facility] [address] [id number] [place] [address]- 0516 Nov, [facility] [place] [facility] [address] [id number] [place] [address]- 3617 Nov, [facility] [place] [facility] [address] [id number] [place] [address]- 2203 Nov, [facility] [place] [facility] [address] [id number] [place] [address]- 9106 Nov, [facility] [place] [facility] [address] [id number] [place] [address]- 4171 Oct, [facility] [place] [facility] [address] [id number] [place] [address]- 6104 Oct, [facility] [place] [facility] [address] [id number] [place] [address]- 1295 Oct, [facility] [place] [facility] [address] [id number] [place] [address]- 6167 Oct, [facility] [place] [facility] [address] [id number] [place] [address]- 3389 Oct, [facility] [place] [facility] [address] [id number] [place] [address]- 5741 Oct, [facility] [place] [facility] [address] [id number] [place] [address]- 7510 Oct, [facility] [place] [facility] [address] [id number] [place] [address]- 1315 Oct, [facility] [place] [facility] [address] [id number] [place] [address]- 3456 Oct, [facility] [place] [facility] [address] [id number] [place] [address]- 1837 Oct, [facility] [place] [facility] [address] [id number] [place] [address]- 5325 Aug, [facility] [place] [facility] [address] [id number] [place] [address]- 1815 Aug, [facility] [place] [facility] [address] [id number] [place] [address]- 2506 Jul, [facility] [place] [facility] [address] [id number] [place] [address]- 5872 Jul, [facility] [place] [facility] [address] [id number], [place] [address]- 6314 Jul, [facility] [place] [facility] [address] [id number] [place] [address]- 1449 Jul, [facility] [place] [facility] [address] [id number], [place] [address]- 3524 Jul, [facility] [place] [facility] [address] [id number], [place] [address]- 8835 Jul, [facility] [place] [facility] [address] [id number], [place] [address]- 7777 Apr, [facility] [place] [facility] [address] [id number] [place] [address]- 1133 Dec, [facility] [place] [facility] [address] [id number], [place] [address]- 5536 Nov, [facility] [place] [facility] [address] [id number], [place] [address]- 0652 Nov, [facility] [place] [facility] [address] [id number] [place] [address]- 6187 07 Nov, 2012 [facility] [address] [id number] [place] [address]- 9107 Oct, [facility] [place] [facility] [address] [id number] [place] [address] Sep, [facility] [address] [id number] [place] [address] Sep, [facility] [place] [facility] [address] [id number] [place] [address] Sep, [facility] [address] [id number] [place] [address] Sep, [facility] [place] [facility] [address] [id number] [place] [address] Aug, [facility] [address] [id number] [place] [address] Aug, [facility] [address] [id number] [place] [address] Jul, [facility] [place] [facility] [address] [id number] [place] [address] Jul, [facility] [address] [id number] [place] [address] 28 Jun, 2012 [facility] [place] [facility] [address] [id number] [place] [address]46 26 Jun, 2012 [facility] [place] [facility] [address] [id number] [place] [address] 24 Jun, 2012 [facility] [place] [facility] [address] [id number] [place] [address]45 24 Jun, 2012 [facility] [place] [facility] [address] [id number] [place] [address] 12 Jun, 2012 [facility] [place] [facility] [address] [id number] [place] [address] Apr, [facility] [place] [facility] [address] [id number] [place] [address] Apr, [facility] [place] [facility] [address] [id number] [place] [address] Apr, [facility] [place] [facility] [address] [id number] [place] [address] Mar, [facility] [place] [facility] [address] [id number] [place] [address] Mar, [facility] [place] [facility] [address] [id number] [place] [address] Mar, [facility] [place] [facility] [address] [id number] [place] [address] February, [facility] [place] [facility] [address] [id number] [place] [address] Jan, [facility] [address] [id number] [place] [address] Dec, [facility] [place] [facility] [address] [id number] [place] [address] Dec, [facility] [place] [facility] [address] [id number] [place] [address] Dec, [facility] [place] [facility] [address] [id number] [place] [address] Dec, [facility] [place] [facility] [address] [id number] [address] Dec, [facility] [place] [facility] [address] [id number] [place] [address] 14 Nov, 2011 [facility] [place] [facility] [address] [id number] [place] [address] 13 Nov, 2011 [facility] [place] [facility] [address] [id number] [place] [address] Oct, [facility] [place] [facility] [address] [id number] [place] [address] Oct, [facility] [address] [id number] [place] [address] 39[address] Oct, [facility] [place] [facility] [address] [id number] [place] [address] 13 Sep, 2011 [facility] [place] [facility] [address] [id number] [place] [address] 47[address] Aug, [facility] [place] [facility] [address] [id number] [place] [address] 10 Aug, 2011 [facility] [place] [facility] [address] [id number] [place] [address] 28 Jul, 2011 [facility] [place] [facility] [address] [id number] [place] [address] 24 Jul, 2011 [facility] [place] [facility] [address] [facility] [id number] [place] [address] Jul, [facility] [place] [facility] [address] [id number] [place] [address] Jan, [facility] [place] [facility] [address] [id number] [place] [address] 29 Sep, 2010 [facility] [place] [facility] [address] [facility] [id number] [place] [address]- [address] 27 Sep, 2010 [facility] [place] [facility] [address] [id number] [place] [address] Sep, [facility] [place] [facility] [address] [id number] [place] [address] Sep, [facility] [place] [facility] [address] [id number] [place] [address] 9589 06 Sep, 2010 [facility] [place] [facility] [address] [facility] [id number] [place] [address]113 16 Aug, 2010 [facility] [place] [facility] [address] [facility] [id number] [place] [address] 16 Aug, 2010 [facility] [place] [facility] [address] [address] 08 Aug, 2010 [facility] [address] [address] Jul, [facility] [address] [address] Jul, [facility] [address] [address] [address] Jul, [facility] [id number] [address] May, [facility] [address] [address] [address] Apr, [facility] [address] [address] Dec, [facility] [address] [place] [address] Sep, [facility] [address] [address] Sep, [facility] [address] [place] [address] Aug, [facility] [address] [id number] [address] Aug, [facility] [address] [id number] [address] 28 Jul, 2009 [facility] [address] [id number] [address] 10 Mar, 2009 IMMUNIZATIONS No Known Immunizations SOCIAL HISTORY Never Assessed REASON FOR VISIT 1 yr f/u DM Ed PLAN OF CARE VITAL SIGNS MEDICATIONS Unknown Medications RESULTS No Results PROCEDURES No Known procedures INSTRUCTIONS MEDICATIONS ADMINISTERED No Known Medications MEDICAL (GENERAL) HISTORY Type Description Date Medical History asthma Medical History arthritis Medical History carpal tunnel 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 (antonia) Medical History headache syndomes- hx migraines Medical History chronic pain Medical History psychiatric disorders Medical History depression /anxiety Medical History 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 Ahn 2015 Hospitalization History Surgery(s) only Hospitalization History [facility]-sepsis/ARF 06/2017
--- OUTSIDE RECORDS SUMMARY | 2018-10-08 19:40 | XMS REPORT ---
Author Author ART JONES Organization [facility] Address [address] 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 Name Role Phone ART JONES Unavailable PROBLEMS Type Condition ICD9-CM Code FZG39-NL Code Onset Dates Condition Status SNOMED Code Problem HSV (herpes simplex virus) infection B00.9 Active 22442430 Problem Edema of both feet R60.0 Active 710648074 Problem Tobacco abuse Z72.0 Active 73798558 Problem Generalized anxiety disorder F41.1 Active 95700912 Problem Chronic pain disorder G89.4 Active 677895629 Problem Chronic migraine G43.709 Active 45810917 Problem Mixed hyperlipidemia E78.2 Active 770622114 Problem Type 2 diabetes mellitus with diabetic neuropathy, unspecified E11.40 Active 09724633 Problem [facility] 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 Z79.4 Active 542924367 Problem Anxiety F41.9 Active 93077359 Problem Radiculopathy of lumbar region M54.16 Active 456180675 Problem Bulging lumbar disc M51.26 Active 562604048 Problem Essential hypertension I10 Active 03073070 Problem Asthma J45.909 Active 780109221 Problem Chronic pain G89.29 Active 58951711 Problem Spinal stenosis, lumbar region M48.06 Active 45851015 Problem Gastroesophageal reflux disease without esophagitis K21.9 Active 864190302 ALLERGIES No Information ENCOUNTERS Encounter Location Date Diagnosis [facility] [id number] [place] [address] 09066- 8566 Jul, Well woman exam with routine gynecological exam Z01.419 and Screening for STD (sexually transmitted disease) Z11.3 [facility] [id number] [address] 0[address] Jul, [facility] [id number] [address] 4304 Jul, Anxiety F41.9 and Chronic pain disorder G89.4 [facility] [id number] [place] [address] 28177- 9110 Jul, [facility] [id number] [place] [address] 21802- 6530 Jun, Chronic migraine G43.709 [facility] [address] 18064- 1929 Jun, [facility] [id number] [place] [address] 87991- 6288 Jun, [facility] [address] 32660- 0025 Jun, [facility] [address] 04820- 9657 Jun, Asthma J45.909 [address] [address] 55741- 5613 Jun, Type 2 diabetes mellitus with diabetic neuropathy, unspecified E11.40 ; Chronic pain disorder G89.4 and Generalized anxiety disorder F41.1 [place] [address] 90281- 7857 May, Chronic pain G89.29 and Anxiety F41.9 [place] [id number] [place] [address] 71853- 9327 May, [facility] [address] 97947- 2937 May, Encounter for Depo-Provera contraception Z30.42 [facility] [id number] [place] [address] 99178- 2049 May, [facility] [address] 22100- 4412 Apr, Chronic pain G89.29 [facility] [address] 32122- 4821 Apr, Chronic pain G89.29 and Anxiety F41.9 [facility] [id number] [place] [address] 94653- 4719 Mar, HSV (herpes simplex virus) infection B00.9 ; Anxiety F41.9 and Chronic pain G89.29 [place] [id number] [place] [address] 09343- 6794 Mar, [place] [address] 48419- 8327 Mar, Chronic pain G89.29 [place] [address] 90751- 1983 February, Chronic pain G89.29 [place] [id number] [place] [address] 11896- 4395 Jan, Chronic pain G89.29 [place] [address] 75829- 7490 Jan, 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 [place] [id number] [place] [address] 10923- 5317 Jan, Encounter for Depo-Provera contraception Z30.42 [place] [id number] [place] [address] 97124- 3824 Jan, [place] [id number] [place] [address] 51717- 5818 Jan, Chronic pain G89.29 and Anxiety F41.9 [place] [id number] [place] [address] 02097- 4733 Jan, [place] [address] 13018- 6309 Dec, [place] [id number] [place] [address] 05352- 2977 Dec, Gastroesophageal reflux disease without esophagitis K21.9 and Anxiety F41.9 [place] [id number] [place] [address] 36882- 1392 14 Dec, 2017 Essential hypertension I10 ; Mixed hyperlipidemia E78.2 ; Type 2 diabetes mellitus with diabetic neuropathy, unspecified E11.40 ; 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 ; Chronic pain G89.29 ; HSV (herpes simplex virus) infection B00.9 ; Anxiety F41.9 and Gastroesophageal reflux disease without esophagitis K21.9 [place] [address] 59833- 7769 07 Dec, 2017 Chronic pain G89.29 and Chronic migraine G43.709 [place] [address] 76356- 3582 Nov, [place] [address] 81879- 5832 08 Nov, 2017 Essential hypertension I10 and Chronic pain G89.29 [place] [address] 13552- 3858 Nov, Chronic pain G89.29 ; Essential hypertension I10 and Type 2 diabetes mellitus without complication E11.9 [place] [address] 17999- 2586 Oct, Chronic pain G89.29 [place] [address] 00287- 0748 Oct, [place] [address] 10968- 1568 Sep, Type 2 diabetes mellitus without complication E11.9 ; Essential hypertension I10 ; [employer]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 ; Chronic migraine G43.709 ; Chronic pain G89.29 and Acute non-recurrent maxillary sinusitis J01.[address] 76333- 0339 Sep, Encounter for Depo-Provera contraception Z30.[address] 82961- 4465 Sep, Chronic pain G89.29 and Radiculopathy of lumbar region M54.16 [facility] [address] [address]- 8946 Sep, [facility] [id number] [place] [address] 803989- 0526 Sep, [facility] [id number] [place] [address] 43005- 2282 Aug, Type 2 diabetes mellitus without complication E11.9 [facility] [id number] [place] [address] 05007- 7846 Aug, [facility] [id number] [place] [address] 54952- 8075 Aug, Radiculopathy of lumbar region M54.16 and Chronic pain G89.29 [facility] [id number] [place] [address] 08097- 5969 Aug, Type 2 diabetes mellitus without complication E11.9 [facility] [address] [place] [address] 69627- 6663 Aug, Type 2 diabetes mellitus without complication E11.9 [facility] [address] [place] [address] 74110- 3085 Jul, Type 2 diabetes mellitus without complication E11.9 [facility] [address] [address]- 6874 Jul, [facility] [id number] [place] [address] 42469- 1351 Jul, Chronic pain G89.29 [facility] [id number] [place] [address] 93910- 9896 Jul, [facility] [id number] [place] [address] 23718- 3526 Jul, [facility] [address] [place] [address] 89954- 6825 Jul, Type 2 diabetes mellitus without complication E11.9 [place] [address] [place] [address] 80079- 9625 16 Jul, 2017 [place] [id number] [place] [address] 84937- 5501 Jul, Type 2 diabetes mellitus without complication E11.9 [place] [id number] [place] [address] 65794- 5022 Jul, [place] [id number] [place] [address] 98121- 4059 Jul, [place] [id number] [place] [address] 29185- 5854 Jul, [place] [id number] [place] [address] 67881- 3522 27 Jun, 2017 Type 2 diabetes mellitus without complication E11.9 [place] [id number] [place] [address] 03447- 0109 Jun, Chronic migraine G43.709 ; Type 2 diabetes mellitus without complication E11.9 ; Calculus of right kidney N20.0 ; Yeast dermatitis B37.2 and HSV (herpes simplex virus) infection B00.9 [place] [id number] [place] [address] 14707- 9913 Jun, Type 2 diabetes mellitus without complication E11.9 [place] [id number] [place] [address] 64141- 3679 Jun, [place] [id number] [place] [address] 13427- 1933 Jun, Radiculopathy of lumbar region M54.16 and Chronic pain G89.29 [place] [id number] [place] [address] 12105- 2459 Jun, Encounter for Depo-Provera contraception Z30.42 [place] [id number] [place] [address] 46999- 5515 Jun, Type 2 diabetes mellitus without complication E11.9 [facility] [id number] [place] [address] 15549- 1481 Jun, [facility] [id number] [place] [address] 35252 -5153 May, Acute nasopharyngitis (common cold) J00 [place] [address] 70842- 8075 May, Chronic pain G89.29 [place] [address] 42033- 8192 May, Headache following lumbar puncture G97.[address] 57144- 8451 May, Radiculopathy of lumbar region M54.[address] 98668- 9297 Apr, [place] [address] 42081- 4043 Apr, Type 2 diabetes mellitus without complication E11.9 ; Chronic pain G89.29 ; Essential hypertension I10 ; Radiculopathy of lumbar region M54.16 ; Spinal stenosis, lumbar region M48.06 ; Gastroesophageal reflux disease without esophagitis K21.9 ; HSV (herpes simplex virus) infection B00.9 ; Mixed hyperlipidemia E78.2 ; Anxiety F41.9 and Asthma J45.909 [place] [id number] [place] [address] 69252- 7123 Apr, Encounter for Depo-Provera contraception Z30.[address] 22393- 4328 Apr, Chronic pain G89.29 and Anxiety F41.[address] 37375- 2658 Mar, [place] [address] 20148- 9411 Mar, [facility] [id number] [place] [address] 89264- 3968 Mar, Mixed hyperlipidemia E78.2 [facility] [id number] [place] [address] 82455- 3170 Mar, Type 2 diabetes mellitus without complication E11.9 ; Chronic pain G89.29 ; Essential hypertension I10 ; Radiculopathy of lumbar region M54.16 ; Spinal stenosis, lumbar region M48.06 ; Gastroesophageal reflux disease without esophagitis K21.9 ; HSV (herpes simplex virus) infection B00.9 ; Mixed hyperlipidemia E78.2 and Anxiety F41.9 [facility] [id number] [place] [address] 10573- 5240 Mar, [facility] [id number] [place] [address] 76882- 5941 Mar, [facility] [id number] [place] [address] 54769- 7777 Mar, [facility] [id number] [place] [address] 30257- 9979 February, Chronic pain G89.29 [facility] [id number] [place] [address] 69919- 5599 February, [facility] [id number] [place] [address] 97859- 0452 Jan, Chronic pain G89.29 [facility] [id number] [place] [address] 16101- 9214 Jan, Type 2 diabetes mellitus without complication E11.9 [facility] [id number] [place] [address] 87129- 2077 Jan, [facility] [id number] [place] [address] 28004- 3645 Jan, [facility] [id number] [place] [address] 46753- 8386 Jan, [place] [address] [place] [address] 12869- 4047 Jan, Type 2 diabetes mellitus without complication [...] J01.00 and Encounter for Depo-Provera contraception Z30.42 [place] [id number] [place] [address] 78878- 8928 Dec, Chronic pain G89.29 [place] [id number] [place] [address] 54838- 9066 Dec, Abnormal ankle brachial index (BERNARDINO) R68.89 [place] [id number] [place] [address] 43663- 5910 Dec, [place] [id number] [place] [address] 07536- 5746 Dec, Routine gynecological examination Z01.419 ; Chronic [...] virus) infection B00.9 and Allergic rhinitis 477.9 [place] [id number] [place] [address] 41590- 0125 28 Nov, 2016 Chronic pain G89.29 [place] [id number] [place] [address] 99100- 1496 02 Nov, 2016 Chronic pain G89.29 ; [...] mucoid otitis media of both ears H65.113 [place] [id number] [place] [address] 50203- 2954 Oct, [place] [address] 26758- 7763 Oct, Chronic pain G89.29 [place] [address] 18052- 1495 Oct, Chronic pain G89.29 [place] [address] 88370- 2106 Sep, Chronic pain G89.29 ; Type 2 diabetes mellitus without complication E11.9 ; Essential hypertension I10 ; Radiculopathy of lumbar region M54.16 ; Spinal stenosis, lumbar region M48.06 ; Gastroesophageal reflux disease without esophagitis K21.9 ; Encounter for surveillance of injectable contraceptive Z30.42 ; Bilateral cold feet R20.9 ; Pain of left foot M79.672 and Pain in right foot M79.671 [place] [id number] [place] [address] 71109- 0949 Sep, [place] [id number] [place] [address] 39381- 0604 Aug, [place] [id number] [place] [address] 39240- 7369 Aug, [place] [address] 98430- 3364 Aug, Chronic pain G89.29 ; Type 2 diabetes mellitus without complication E11.9 ; Essential hypertension I10 ; Rash and nonspecific skin eruption R21 and Upper respiratory infection, acute J06.9 [place] [id number] [place] [address] 20641- 6641 Aug, [facility] [id number] [place] [address] 82327- 8769 Aug, [facility] [address] 79033- 0194 Jul, [facility] [address] 93388- 4057 Jul, Dysuria R30.0 ; Encounter for Depo-Provera contraception Z30.42 ; Herpes simplex B00.9 ; Nausea & vomiting R11.2 and Asthma J45.909 [facility] [address] 64608- 6829 Jun, Dysuria R30.0 [facility] [id number] [place] [address] 72342- 1202 Jun, Dysuria R30.0 [facility] [address] 62136- 0540 15 Jun, 2016 [facility] [id number] [place] [address] 38423- 4036 13 Jun, 2016 [facility] [id number] [place] [address] 14970- 6757 May, [facility] [id number] [place] [address] 11665- 0421 May, [facility] [address] 17911- 7415 May, Chronic pain G89.29 ; Essential hypertension I10 ; Type 2 diabetes mellitus without complication E11.9 ; Edema of both feet R60.0 and Rash and nonspecific skin eruption R21 [facility] [id number] [place] [address] 32173- 6334 Apr, [facility] [id number] [place] [address] 38245- 4789 Mar, Carpal tunnel syndrome, left upper limb G56.02 and Carpal tunnel syndrome, right upper limb G56.01 [place] [id number] [place] [address] 77150- 5855 Mar, [place] [id number] [place] [address] 14766- 1681 Mar, Encounter for Depo-Provera contraception Z30.42 [place] [address] 24934- 1145 February, [place] [address] 25457- 9361 February, [place] [address] 35515- 1810 February, Chronic pain G89.29 ; Essential hypertension I10 ; Type 2 diabetes mellitus without complication E11.9 ; HSV (herpes simplex virus) infection B00.9 ; Anxiety F41.9 ; Hypersomnia G47.10 ; Tobacco abuse Z72.0 ; Hand pain, left M79.642 ; Hand pain, right M79.641 ; Left foot pain M79.672 and Heart palpitations R00.2 [place] [address] 34651- 8244 Jan, [place] [id number] [place] [address] 30212- 1063 Jan, [place] [id number] [place] [address] 78825- 4313 Jan, [place] [id number] [place] [address] 68382- 0260 Jan, [place] [address] 64754- 0996 14 Jan, 2016 Upper respiratory infection J06.9 and Type 2 diabetes mellitus without complication E11.9 [place] [id number] [place] [address] 49585- 5029 Dec, [place] [address] 52339- 5444 Dec, Chronic pain G89.29 ; Essential hypertension I10 ; Type 2 diabetes mellitus without complication E11.9 ; HSV (herpes simplex virus) infection B00.9 ; Anxiety F41.9 ; Upper respiratory infection J06.9 ; Hypersomnia G47.10 and Tobacco abuse Z72.0 [place] [address] 67118- 3563 17 Dec, 2015 Encounter for Depo-Provera contraception Z30.42 [place] [address] 59754- 1767 Dec, [address] 31560- 8942 Dec, Chronic pain G89.29 ; Sinusitis J32.9 ; Snoring R06.83 and Daytime hypersomnia G47.[address] 43470- 4031 Nov, HSV (herpes simplex virus) infection B00.9 ; Encounter for Papanicolaou smear for cervical cancer screening Z12.4 ; Screening for STD sexually transmitted disease Z11.3 and Bartholin's gland cyst N75.0 [place] [address] 32592- 4296 Nov, [place] [address] 97598- 8952 Nov, [place] [address] 57833- 7570 Nov, Essential hypertension I10 ; Type 2 diabetes mellitus without complication E11.9 ; HSV (herpes simplex virus) infection B00.9 ; Spinal stenosis, lumbar region M48.06 and Vaginal yeast infection B37.[address] 79208- 6071 Nov, [place] [address] 17091- 4246 Nov, [place] [id number] [place] [address] 01072- 3772 Oct, [place] [address] 24067- 5276 Oct, HSV (herpes simplex virus) infection B00.9 ; Yeast infection B37.9 ; Change in bowel habit R19.4 ; Nausea & vomiting R11.2 and Gastroesophageal reflux disease without esophagitis K21.9 [place] [address] 48348- 6445 Oct, [address] 02734- 0062 Oct, Type 2 diabetes mellitus without complication E11.9 ; Essential hypertension I10 and Acute maxillary sinusitis, recurrence not specified J01.[address] 04733- 5296 Oct, [place] [address] 15603- 6100 Oct, [address] 17475- 2025 Oct, Exposure to head lice Z20.7 ; Blood glucose abnormal R73.09 ; Boil of buttock L02.32 and Type 2 diabetes mellitus without complication E11.9 [place] [address] 10942- 4540 Oct, [place] [address] 58074- 0114 Sep, [place] [address] 41041- 4613 Sep, [place] [address] 70315- 9745 Aug, Encounter for Depo-Provera contraception Z30.42 [place] [address] 28757- 3684 Aug, Anxiety F41.9 ; Spinal stenosis, lumbar region M48.06 ; Radiculopathy of lumbar region M54.16 ; Asthma J45.909 ; GERD (gastroesophageal reflux disease) K21.9 ; Essential hypertension I10 and Long-term use of high- risk medication Z79.899 [place] [id number] [place] [address] 44241- 5860 Jul, [place] [address] 95668- 5162 Jun, Hemorrhoid 455.[address] 39982- 6138 Jun, [place] [address] 78894- 6384 Jun, Anxiety 300.00 ; Asthma 493.90 ; Hyperhidrosis 705.21 ; Chest discomfort 786.59 and Upper respiratory infection 465.9 [place] [address] 46651- 7685 May, Encounter for Depo-Provera contraception V25.[address] 98198- 1525 May, [place] [id number] [place] [address] 16609- 1576 May, [place] [address] 68016- 7031 May, Spinal stenosis of lumbar region with radiculopathy 724.02 ; Bulging of intervertebral disc between L4 and L5 722.10 ; GERD ( gastroesophageal reflux disease) 530.81 ; Chronic pain 338.29 ; Declining mobility 799.89 and Epigastric pain 789.06 [place] [id number] [place] [address] 05541- 6777 Apr, [address] 95772- 0109 Apr, Nausea 787.02 and Heart burn 787.1 [facility] [address]- 8045 Mar, Lumbago 724.2 ; Vitamin D deficiency 268.9 ; Anxiety 300.00 ; Allergic rhinitis 477.9 and Contraceptive surveillance V25.40 [facility] [id number] [place] [address] 139065- 2049 February, 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 ; Chronic pain 338.29 and Vaginal discharge 623.5 [facility] [id number] [place] [address] 14185- 4585 February, [facility] [id number] [place] [address] 61615- 9535 February, [facility] [id number] [place] [address] 62365- 2168 Jan, [facility] [id number] [place] [address] 88371- 2043 Jan, [facility] [id number] [place] [address] 58002- 9650 Dec, [facility] [id number] [place] [address] 17455- 4838 Dec, [facility] [address] [address]- 3140 Dec, [facility] [id number] [place] [address] 78725- 0201 Dec, [facility] [address], [place] [address]- 7535 Dec, [facility] [id number] [place] [address] 43624474- 4688 Dec, [facility] [address]- 2336 Dec, [facility] [id number] [place] [address]- 5332 13 Dec, 2014 [facility] [place] [facility] [address] [id number] [place] [address]- 3493 Dec, [facility] [place] [facility] [address] [id number] [place] [address] Dec, [facility] [place] [facility] [address] [id number] [place] [address] Dec, [facility] [place] [facility] [address] [id number] [place] [address] Dec, [facility] [place] [facility] [address] [id number] [place] [address] Nov, 2014 [facility] [place] [facility] [address] [facility] [id number] [place] [address] Nov, 2014 [facility] [place] [facility] [address] [facility] [id number] [place] [address] 24 Nov, 2014 [facility] [place] [facility] [address] [id number] [place] [address] 24 Nov, 2014 [facility] [place] [facility] [address] [facility] [id number] [place] [address] 23 Nov, 2014 [facility] [place] [facility] [address] [facility] [id number] [place] [address] 23 Nov, 2014 [facility] [place] [facility] [address] [facility] [id number] [address] 16 Nov, 2014 [facility] [place] [facility] [address] [facility] [id number] [place] [address] 16 Nov, 2014 [facility] [place] [facility] [address] [address] [id number] [place] [address] 13 Nov, 2014 [facility] [place] [facility] [address] [facility] [id number] [place] [address] 2292 13 Nov, 2014 [facility] [place] [facility] [address] [facility] [id number] [place] [address] 1116 Nov, 2014 [facility] [place] [facility] [address] [id number] [place] [address] 2546 Nov, 2014 [facility] [place] [facility] [address] [id number] [place] [address]- 1266 Nov, 2014 [facility] [place] [facility] [address] [facility] [id number] [place] [address]- 2906 Nov, 2014 [facility] [place] [facility] [address] [id number] [place] [address]- 2546 Nov, 2014 [facility] [place] [facility] [address] [id number] [place] [address] 6916 Nov, 2014 [facility] [place] [facility] [address] [facility] [id number] [place] [address]- 2546 Nov, 2014 [facility] [place] [facility] [address] [facility] [id number] [place] [address] 8563 Nov, 2014 [facility] [place] [facility] [address] [facility] [id number] [place] [address] 4144 Nov, 2014 [facility] [place] [facility] [address] [facility] [id number] [place] [address]- 9474 Nov, 2014 [facility] [place] [facility] [address] [facility] [id number] [place] [address]- 4156 Nov, 2014 [facility] [place] [facility] [address] [facility] [id number] [place] [address] 2546 Nov, 2014 [facility] [place] [facility] [address] [facility] [id number] [place] [address] 2540 Nov, 2014 [facility] [place] [facility] [address] [facility] [id number] [place] [address]- 8396 Oct, [facility] [place] [facility] [address] [facility] [id number] [place] [address] 2541 Oct, [facility] [place] [facility] [address] [facility] [id number] [place] [address] 1986 Oct, [facility] [place] [facility] [address] [id number] [place] [address]- 1294 Oct, [facility] [place] [facility] [address] [id number] [place] [address]- 6496 Oct, [facility] [place] [facility] [address] [id number] [place] [address]- 7612 Oct, [facility] [place] [facility] [address] [id number] [place] [address]- 4019 Oct, [facility] [place] [facility] [address] [id number] [place] [address]- 5247 Oct, [facility] [place] [facility] [address] [id number] [place] [address]- 0490 Oct, [facility] [place] [facility] [address] [id number] [place] [address]- 7983 Oct, [facility] [place] [facility] [address] [id number] [place] [address]- 9944 Oct, [facility] [place] [facility] [address] [id number] [place] [address]- 8062 Oct, [facility] [place] [facility] [address] [id number] [place] [address]- 7046 Oct, [facility] [place] [facility] [address] [id number], [place] [address] 60[address] Oct, [facility] [place] [facility] [address] [id number], [place] [address]- 5641 Oct, [facility] [place] [facility] [address] [id number] [place] [address]- 5873 Oct, [facility] [place] [facility] [address] [id number] [place] [address]- 5375 Oct, [facility] [place] [facility] [address] [id number] [place] [address]- 9925 Oct, [facility] [place] [facility] [address] [id number] [place] [address]- 7169 12 Oct, 2014 [facility] [address] [id number] [place] [address]- 1823 Oct, [facility] [place] [facility] [address] [id number] [place] [address]- 8394 Oct, [facility] [place] [facility] [address] [id number] [place] [address]- 9916 29 Sep, 2014 [facility] [place] [facility] [address] [id number] [place] [address]- 5457 29 Sep, 2014 [facility] [place] [facility] [address] [id number] [place] [address]- 4447 Sep, [facility] [place] [facility] [address] [id number] [place] [address]- 5753 18 Sep, 2014 [facility] [place] [facility] [address] [id number] [place] [address]- 3525 17 Sep, 2014 [facility] [place] [facility] [address] [id number] [place] [address]- 9041 17 Sep, 2014 [facility] [place] [facility] [address] [id number] [place] [address]- 8242 15 Sep, 2014 [facility] [place] [facility] [address] [id number] [place] [address]- 0209 15 Sep, 2014 [facility] [place] [facility] [address] [id number] [place] [address]- 4121 12 Sep, 2014 [facility] [place] [facility] [address] [id number] [place] [address]- 8332 12 Sep, 2014 [facility] [place] [facility] [address] [id number] [place] [address]- 8078 Sep, [facility] [place] [facility] [address] [id number] [place] [address]- 0433 Sep, [facility] [place] [facility] [address] [id number] [place] [address]- 6979 Sep, [facility] [place] [facility] [address] [id number] [place] [address]- 2081 Sep, [facility] [place] [facility] [address] [id number] [place] [address]- 3365 Sep, [facility] [place] [facility] [address] [id number] [place] [address]- 0460 Sep, [facility] [place] [facility] [address] [id number] [place] [address]- 6813 Sep, [facility] [place] [facility] [address] [id number] [place] [address]- 8961 Sep, [facility] [place] [facility] [address] [id number] [place] [address]- 6981 Sep, [facility] [place] [facility] [address] [id number] [place] [address]- 0644 Sep, [facility] [place] [facility] [address] [id number] [place] [address]- 2520 Aug, [facility] [place] [facility] [address] [id number] [place] [address]- 6887 Aug, [facility] [place] [facility] [address] [id number] [place] [address]- 9469 Aug, [facility] [place] [facility] [address] [id number] [place] [address]- 0315 Aug, [facility] [place] [facility] [address] [id number] [place] [address]- 7352 Aug, [facility] [place] [facility] [address] [id number] [place] [address]- 7684 Aug, [facility] [place] [facility] [address] [id number] [place] [address]- 0118 Aug, [facility] [place] [facility] [address] [id number] [place] [address]- 4111 Aug, [facility] [place] [facility] [address] [id number], [place] [address]- 5241 Aug, [facility] [place] [facility] [address] [id number] [place] [address]- 0283 Jul, [facility] [place] [facility] [address] [id number] [place] [address] Jul, [facility] [place] [facility] [address] [id number] [place] [address]- 0162 Jul, [facility] [place] [facility] [address] [id number] [place] [address]- 7048 Jul, [facility] [place] [facility] [address] [id number] [place] [address]- 6595 Jul, [facility] [place] [facility] [address] [id number] [place] [address]- 1946 Jul, [facility] [place] [facility] [address] [id number] [place] [address]- 8408 Jul, [facility] [place] [facility] [address] [id number] [place] [address]- 4406 Jul, [facility] [place] [facility] [address] [id number] [place] [address]- 9003 10 Jul, 2014 [facility] [place] [facility] [address] [id number] [place] [address]- 5701 Jul, [facility] [place] [facility] [address] [id number], [place] [address]- 8858 10 Jul, 2014 [facility] [place] [facility] [address] [id number], [place] [address]- 4629 10 Jul, 2014 [facility] [place] [facility] [address] [id number] [place] [address]- 0710 07 Jul, 2014 [facility] [place] [facility] [address] [id number], [place] [address]- 1927 07 Jul, 2014 [facility] [place] [facility] [address] [id number] [place] [address]- 7212 30 Jun, 2014 [facility] [place] [facility] [address] [id number] [place] [address] 2546 30 Sep, 2013 [facility] [place] [facility] [address] [id number] [place] [address] 2546 25 Sep, 2013 [facility] [place] [facility] [address] [id number] [place] [address] 2546 25 Sep, 2013 [facility] [place] [facility] [address] [id number] [place] [address] 2546 25 Sep, 2013 [facility] [place] [facility] [address] [id number] [place] [address] 2546 25 Sep, 2013 [facility] [place] [facility] [address] [id number] [place] [address]- 9643 24 Sep, 2013 [facility] [place] [facility] [address] [id number] [place] [address]- 2549 24 Sep, 2013 [facility] [place] [facility] [address] [id number] [place] [address]- 254 22 Sep, 2013 [facility] [place] [facility] [address] [id number] [place] [address]- 2549 22 Sep, 2013 [facility] [place] [facility] [address] [id number] [place] [address] 2544 17 Sep, 2013 [facility] [place] [facility] [address] [id number] [place] [address] 2545 17 Sep, 2013 [facility] [place] [facility] [address] [id number] [place] [address] 2546 16 Sep, 2013 [facility] [place] [facility] [address] [id number] [place] [address] 2546 16 Sep, 2013 [facility] [place] [facility] [address] [id number] [place] [address] 2546 15 Sep, 2013 [facility] [place] [facility] [address] [id number] [place] [address] 2546 15 Sep, 2013 [facility] [place] [facility] [address] [id number] [place] [address]- 5793 12 Sep, 2013 [facility] [place] [facility] [address] [id number] [place] [address]- 8260 12 Jun, 2013 [facility] [place] [facility] [address] [id number] [place] [address]- 4394 Jun, 2013 [facility] [place] [facility] [address] [id number] [place] [address]- 6219 Jun, 2013 [facility] [place] [facility] [address] [id number] [place] [address]- 3163 Jun, 2013 [facility] [place] [facility] [address] [id number] [place] [address]- 8313 Jun, 2013 [facility] [place] [facility] [address] [id number] [place] [address]- 0588 Jun, 2013 [facility] [place] [facility] [address] [id number] [place] [address]- 3594 Jun, 2013 [facility] [place] [facility] [address] [id number] [place] [address]- 9187 Jun, 2013 [facility] [place] [facility] [address] [id number] [place] [address]- 4456 Jun, [facility] [place] [facility] [address] [id number] [place] [address]- 1474 May, [facility] [place] [facility] [address] [id number] [place] [address]- 1342 May, [facility] [place] [facility] [address] [id number] [place] [address]- 1739 May, [facility] [place] [facility] [address] [id number] [place] [address]- 9562 May, [facility] [place] [facility] [address] [id number] [place] [address]- 8661 May, [facility] [place] [facility] [address] [id number] [place] [address]- 5533 May, [facility] [place] [facility] [address] [id number] [place] [address]- 7601 May, [facility] [place] [facility] [address] [id number] [place] [address]- 9049 May, [facility] [place] [facility] [address] [id number] [place] [address]- 0241 May, [facility] [place] [facility] [address] [id number] [place] [address]- 8207 May, [facility] [place] [facility] [address] [id number] [place] [address]- 0136 May, [facility] [place] [facility] [address] [id number] [place] [address]- 8314 May, [facility] [place] [facility] [address] [id number] [place] [address]- 8493 May, [facility] [place] [facility] [address] [id number] [place] [address]- 2408 Apr, [facility] [place] [facility] [address] [id number] [place] [address]- 0163 Apr, [facility] [place] [facility] [address] [id number] [place] [address]- 8511 Apr, [facility] [place] [facility] [address] [id number] [place] [address]- 4488 Apr, [facility] [place] [facility] [address] [id number] [place] [address]- 2112 Apr, [facility] [place] [facility] [address] [id number] [place] [address]- 6144 Mar, [facility] [place] [facility] [address] [id number] [place] [address]- 6288 Mar, [facility] [place] [facility] [address] [id number] [place] [address]- 2574 Mar, [facility] [place] [facility] [address] [id number] [place] [address]- 7933 February, [facility] [place] [facility] [address] [id number] [place] [address]- 3694 February, [facility] [place] [facility] [address] [id number] [place] [address]- 9401 February, [facility] [place] [facility] [address] [id number] [place] [address]- 5927 February, [facility] [place] [facility] [address] [id number] [place] [address]- 7187 February, [facility] [place] [facility] [address] [id number] [place] [address]- 2375 February, [facility] [place] [facility] [address] [id number] [place] [address]- 3027 February, [facility] [place] [facility] [address] [id number] [place] [address]- 0566 February, [facility] [place] [facility] [address] [id number] [place] [address]- 6281 February, [facility] [place] [facility] [address] [id number] [place] [address]- 8528 Jan, [facility] [place] [facility] [address] [id number] [place] [address]- 7497 Jan, [facility] [place] [facility] [address] [id number] [place] [address]- 4333 Jan, [facility] [place] [facility] [address] [id number] [place] [address]- 6278 Jan, [facility] [place] [facility] [address] [id number] [place] [address]- 3039 Jan, [facility] [place] [facility] [address] [id number] [place] [address]- 8061 Dec, [facility] [place] [facility] [address] [id number] [place] [address]- 2566 Dec, [facility] [place] [facility] [address] [id number] [place] [address]- 4560 Dec, [facility] [place] [facility] [address] [id number] [place] [address]- 6104 Dec, [facility] [place] [facility] [address] [id number] [place] [address]- 0404 Dec, [facility] [place] [facility] [address] [id number] [place] [address]- 4392 Nov, [facility] [place] [facility] [address] [id number] [place] [address]- 1715 Nov, [facility] [place] [facility] [address] [id number] [place] [address]- 5341 Nov, [facility] [place] [facility] [address] [id number] [place] [address]- 2551 Nov, [facility] [place] [facility] [address] [id number] [place] [address]- 1850 Oct, [facility] [place] [facility] [address] [id number] [place] [address]- 0044 Oct, [facility] [place] [facility] [address] [id number] [place] [address]- 7989 Oct, [facility] [place] [facility] [address] [id number] [place] [address]- 5462 Oct, [facility] [place] [facility] [address] [id number] [place] [address]- 8602 Oct, [facility] [place] [facility] [address] [id number] [place] [address]- 7590 Oct, [facility] [place] [facility] [address] [id number] [place] [address]- 1877 Oct, [facility] [place] [facility] [address] [id number] [place] [address]- 9634 Oct, [facility] [place] [facility] [address] [id number] [place] [address]- 6674 Oct, [facility] [place] [facility] [address] [id number] [place] [address]- 8897 Oct, [facility] [address] [id number] [place] [address]- 0031 Aug, [facility] [address] [id number] [place] [address]- 8232 Aug, [facility] [address] [id number] [place] [address]- 6993 Jul, [facility] [address] [id number] [place] [address]- 4347 Jul, [facility] [address] [id number] [place] [address]- 8921 Jul, [facility] [address] [id number] [place] [address]- 3799 Jul, [facility] [address] [id number] [place] [address]- 8464 Jul, [facility] [address] [id number] [place] [address]- 5355 Jul, [facility] [address] [id number] [place] [address]- 4443 Apr, [facility] [address] [id number] [place] [address]- 0414 Dec, [facility] [place] [facility] [address] [id number] [place] [address]- 3886 Nov, [facility] [address] [id number] [place] [address] 2546 Nov, [facility] [place] [facility] [address] [id number] [place] [address]- 4786 Nov, [facility] [place] [facility] [address] [id number] [place] [address]- 2546 Oct, [facility] [place] [facility] [address] [id number] [place] [address]- 5799 Sep, [facility] [place] [facility] [address] [id number] [place] [address]- 6471 Sep, [facility] [place] [facility] [address] [id number] [place] [address]- 8151 Sep, [facility] [place] [facility] [address] [id number] [place] [address]- 2098 Sep, [facility] [place] [facility] [address] [id number] [place] [address]- 8131 Aug, [facility] [place] [facility] [address] [id number] [place] [address]- 9219 Aug, [facility] [place] [facility] [address] [id number] [place] [address]- 7934 Jul, [facility] [place] [facility] [address] [id number] [place] [address]- 9151 Jul, [facility] [place] [facility] [address] [id number] [place] [address]- 2902 28 Jun, 2012 [facility] [place] [facility] [address] [id number] [place] [address]- 1704 26 Jun, 2012 [facility] [place] [facility] [address] [id number] [place] [address]- 7766 24 Jun, 2012 [facility] [place] [facility] [address] [id number] [place] [address]- 0779 24 Jun, 2012 [facility] [place] [facility] [address] [id number], [place] [address]- 0929 12 Jun, 2012 [facility] [place] [facility] [address] [id number] [place] [address]- 5280 31 Apr, 2012 [facility] [place] [facility] [address] [id number] [place] [address]- 4575 30 Apr, 2012 [facility] [place] [facility] [address] [id number] [place] [address]- 1071 Apr, [facility] [place] [facility] [address] [id number] [place] [address]- 6568 Mar, [facility] [address] [id number] [place] [address] Mar, [facility] [place] [facility] [address] [id number] [place] [address] Mar, [facility] [place] [facility] [address] [id number] [place] [address] February, [facility] [place] [facility] [address] [id number] [place] [address] Jan, [facility] [place] [facility] [address] [id number] [place] [address] Dec, [facility] [place] [facility] [address] [id number] [place] [address] Dec, [facility] [address] [id number] [place] [address] Dec, [facility] [place] [facility] [address] [id number] [place] [address] Dec, [facility] [place] [facility] [address] [id number] [place] [address] Dec, [facility] [place] [facility] [address] [id number] [place] [address] 14 Nov, 2011 [facility] [place] [facility] [address] [id number] [place] [address] 13 Nov, 2011 [facility] [place] [facility] [address] [id number] [place] [address] Oct, [facility] [place] [facility] [address] [id number] [place] [address] Oct, [facility] [place] [facility] [address] [id number] [place] [address] Oct, [facility] [place] [facility] [address] [id number] [place] [address] Sep, [facility] [place] [facility] [address] [id number] [place] [address] Aug, [facility] [place] [facility] [address] [id number] [place] [address] 10 Aug, 2011 [facility] [place] [facility] [address] [id number] [place] [address] Jul, [facility] [place] [facility] [address] [id number] [place] [address], [place] [address] 24 Jul, 2011 [facility] [place] [facility] [address] [id number] [place] [address] Jul, [facility] [place] [facility] [address] [id number] [place] [address] Jan, [facility] [address] [id number] [place] [address] 29 Sep, 2010 [facility] [place] [facility] [address] [id number] [place] [address] Sep, [facility] [place] [facility] [address] [id number] [place] [address] Sep, [facility] [place] [facility] [address] [id number] [place] [address] Sep, [facility] [place] [facility] [address] [id number] [place] [address] Sep, [facility] [place] [facility] [address] [id number] [place] [address] 16 Aug, 2010 [facility] [place] [facility] [address] [id number] [place] [address] 16 Aug, 2010 [facility] [place] [facility] [address] [id number] [place] [address] 08 Aug, 2010 [facility] [place] [facility] [address] [id number] [place] [address] 19 Jul, 2010 [facility] [place] [facility] [address] [id number] [address] Jul, [facility] [id number] [address] Jul, [facility] [id number], [place] [address] May, [facility] [id number] [address] Apr, [facility] [id number] [address] Dec, [facility] [id number] Sep, [facility] [id number], [place] [address] Sep, [facility] [id number] [address] Aug, [facility] [id number] [place] [address] Aug, [facility] [address] [id number] [address] Jul, [facility] [id number], [place] [address] 10 Mar, 2009 IMMUNIZATIONS No Known Immunizations SOCIAL HISTORY Never Assessed REASON FOR VISIT Contract Violation/Upset patient PLAN OF CARE VITAL SIGNS MEDICATIONS No Known Medications RESULTS No Results PROCEDURES No Known [...] Right arm/hand carpal tunnel release- Dr. Ahn 2016 Hospitalization History Surgery(s) only Hospitalization History Olivia-sepsis/ARF 06/2017
--- OUTSIDE RECORDS SUMMARY | 2018-10-08 19:41 | XMS REPORT ---
Author Author REIDVALENTINO [facility] Address [address] [place] [address] Care Team Providers Care Blacking Wheel Tender Name Role Phone REIDVALENTINO Mcelroy Unavailable PROBLEMS Type Condition ICD9-CM Code NUG21-KF Code Onset Dates Condition Status SNOMED Code Problem HSV (herpes simplex virus) infection B00.9 Active 49055770 Problem Edema of both feet R60.0 Active 006433851 Problem Tobacco abuse Z72.0 Active 01108786 Problem Generalized anxiety disorder F41.1 Active 57981552 Problem Chronic pain disorder G89.4 Active 628189863 Problem Chronic migraine G43.709 Active 09920882 Problem Mixed hyperlipidemia E78.2 Active 681654909 Problem Type 2 diabetes mellitus with diabetic neuropathy, unspecified E11.40 Active 22612186 Problem 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 [id number] [address] Jun, Chronic migraine G43.709 [facility] [address] [id number] [address] 0539 Jun, [facility] [address] [id number] [address] 8916 Jun, [facility] [id number] [place] [address] 83392- 0046 07 Jun, 2018 [place] [id number] [place] [address] 23536- 5397 06 Jun, 2018 Asthma J45.909 [facility] [id number] [place] [address] 68674- 6366 04 Jun, 2018 Type 2 diabetes mellitus with diabetic neuropathy, unspecified E11.40 ; Chronic pain disorder G89.4 and Generalized anxiety disorder F41.1 [place] [address] 88595- 9179 May, Chronic pain G89.29 and Anxiety F41.9 [place] [address] 63705- 5010 May, [place] [address] 74519- 8374 May, Encounter for Depo-Provera contraception Z30.42 [place] [address] 99774- 3025 May, [place] [address] 82374- 2331 Apr, Chronic pain G89.29 [place] [address] 58060- 7227 Apr, Chronic pain G89.29 and Anxiety F41.9 [place] [id number] [place] [address] 19870- 7814 Mar, HSV (herpes simplex virus) infection B00.9 ; Anxiety F41.9 and Chronic pain G89.29 [place] [address] 36468- 3720 Mar, [place] [address] 95202- 1764 Mar, Chronic pain G89.29 [place] [address] 99998- 9952 February, Chronic pain G89.29 [place] [address] 18001- 4953 Jan, Chronic pain G89.29 [place] [address] 21067- 3700 Jan, alf 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 Z79.4 [place] [address] 11206- 3338 Jan, Encounter for Depo-Provera contraception Z30.42 [place] [address] 97155- 0744 Jan, [place] [address] 42994- 1627 Jan, Chronic pain G89.29 and Anxiety F41.9 [place] [address] 08332- 1109 Jan, [place] [address] 61422- 6699 Dec, [place] [address] 57077- 8331 Dec, Gastroesophageal reflux disease without esophagitis K21.9 and Anxiety F41.[address] 70428- 0801 Dec, Essential hypertension I10 ; Mixed hyperlipidemia E78.2 ; Type 2 diabetes mellitus with diabetic neuropathy, unspecified E11.40 ; 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.4 ; Chronic pain G89.29 ; HSV (herpes simplex virus) infection B00.9 ; Anxiety F41.9 and Gastroesophageal reflux disease without esophagitis K21.9 [place] [address] 01993- 5377 Dec, Chronic pain G89.29 and Chronic migraine G43.709 [place] [address] 72403- 8662 Nov, [place] [id number] [place] [address] 15047- 4646 Nov, Essential hypertension I10 and Chronic pain G89.29 [place] [id number] [place] [address] 73961- 3755 Nov, Chronic pain G89.29 ; Essential hypertension I10 and Type 2 diabetes mellitus without complication E11.9 [place] [id number] [place] [address] 21718- 2436 Oct, Chronic pain G89.29 [place] [id number] [place] [address] 58814- 6561 Oct, [place] [id number] [place] [address] 23512- 3582 Sep, Type 2 diabetes mellitus without complication E11.9 ; Essential hypertension I10 ; alf (current) use of insulin Z79.4 ; Chronic migraine G43.709 ; Chronic pain G89.29 and Acute non-recurrent maxillary sinusitis J01.00 [place] [id number] [place] [address] 94527- 3033 Sep, Encounter for Depo-Provera contraception Z30.42 [place] [id number] [place] [address] 32447- 7854 Sep, Chronic pain G89.29 and Radiculopathy of lumbar region M54.16 [place] [id number] [place] [address] 70311- 7275 Sep, [place] [id number] [place] [address] 66368- 9763 Sep, [place] [address] 64713- 8152 Aug, Type 2 diabetes mellitus without complication E11.9 [place] [id number] [place] [address] 99618- 2187 Aug, [place] [address] [facility] [id number] [address] 5650 16 Aug, 2017 Radiculopathy of lumbar region M54.16 and Chronic pain G89.29 [facility] [address] [facility] [id number], [place] [address] 2549 Aug, Type 2 diabetes mellitus without complication E11.9 [facility] [address] [facility] [id number] [address]- 6552 Aug, Type 2 diabetes mellitus without complication E11.9 [facility] [address] [facility] [id number], [place] [address]- 2422 Jul, Type 2 diabetes mellitus without complication E11.9 [facility] [address] [facility] [id number], [place] [address] 3349 Jul, [facility] [id number] [place] [address] 65518- 5747 Jul, Chronic pain G89.29 [facility] [address] [facility] [id number], [place] [address]- 4237 Jul, [facility] [address] [address]- 4975 Jul, [facility] [address] [address]- 2058 Jul, Type 2 diabetes mellitus without complication E11.9 [facility] [address] [address]- 7530 Jul, [facility] [address] [facility] [id number][place] [address]- 6848 Jul, Type 2 diabetes mellitus without complication E11.9 [facility] [address] [facility] [id number], [place] [address]- 8880 Jul, [facility] [address] [facility] [id number], [place] [address]- 5153 Jul, [facility] [id number] [place] [address] 16325- 1484 Jul, [facility] [id number] [place] [address] 26055- 8339 27 Jun, 2017 Type 2 diabetes mellitus without complication E11.9 [facility] [id number] [place] [address] 87220- 8850 26 Jun, 2017 Chronic migraine G43.709 ; Type 2 diabetes mellitus without complication E11.9 ; Calculus of right kidney N20.0 ; Yeast dermatitis B37.2 and HSV (herpes simplex virus) infection B00.9 [place] [id number] [place] [address] 49705- 9128 Jun, Type 2 diabetes mellitus without complication E11.9 [place] [id number] [place] [address] 26685- 6964 Jun, [place] [id number] [place] [address] 62758- 0703 Jun, Radiculopathy of lumbar region M54.16 and Chronic pain G89.29 [place] [id number] [place] [address] 21078- 4521 Jun, Encounter for Depo-Provera contraception Z30.42 [place] [id number] [place] [address] 76389- 3269 Jun, Type 2 diabetes mellitus without complication E11.9 [place] [id number] [place] [address] 81968- 0562 Jun, [facility] [id number] [place] [address] 13897 -1611 May, Acute nasopharyngitis (common cold) J00 [place] [id number] [place] [address] 41809- 7444 May, Chronic pain G89.29 [place] [id number] [place] [address] 95500- 3258 May, Headache following lumbar puncture G97.1 [place] [id number] [place] [address] 45265- 8391 May, Radiculopathy of lumbar region M54.16 [place] [id number] [place] [address] 33951- 6756 Apr, [place] [address] 27446- 4497 Apr, Type 2 diabetes mellitus without complication E11.9 ; Chronic pain G89.29 ; Essential hypertension I10 ; Radiculopathy of lumbar region M54.16 ; Spinal stenosis, lumbar region M48.06 ; Gastroesophageal reflux disease without esophagitis K21.9 ; HSV (herpes simplex virus) infection B00.9 ; Mixed hyperlipidemia E78.2 ; Anxiety F41.9 and Asthma J45.909 [place] [id number] [place] [address] 12296- 5440 Apr, Encounter for Depo-Provera contraception Z30.42 [place] [id number] [place] [address] 36522- 8578 Apr, Chronic pain G89.29 and Anxiety F41.9 [place] [address] 09322- 0794 Mar, [place] [id number] [place] [address] 85573- 0009 Mar, [place] [id number] [place] [address] 23563- 2175 Mar, Mixed hyperlipidemia E78.2 [place] [id number] [place] [address] 72243- 0082 Mar, Type 2 diabetes mellitus without complication E11.9 ; Chronic pain G89.29 ; Essential hypertension I10 ; Radiculopathy of lumbar region M54.16 ; Spinal stenosis, lumbar region M48.06 ; Gastroesophageal reflux disease without esophagitis K21.9 ; HSV (herpes simplex virus) infection B00.9 ; Mixed hyperlipidemia E78.2 and Anxiety F41.9 [place] [address] [address]- 8739 Mar, [facility] [id number] [place] [address] 92206- 8949 Mar, [facility] [id number] [place] [address] 37146- 9203 Mar, [facility] [id number] [place] [address] 60538- 0685 February, Chronic pain G89.29 [facility] [id number] [place] [address] 53503- 9469 February, [facility] [id number] [place] [address] 96114- 4126 Jan, Chronic pain G89.29 [facility] [id number] [place] [address] 54250- 0724 Jan, Type 2 diabetes mellitus without complication E11.9 [facility] [id number] [place] [address] 03289- 3129 Jan, [facility] [id number] [place] [address] 04609- 9152 Jan, [facility] [id number] [place] [address] 28695- 1333 Jan, [facility] [id number] [place] [address] 08044- 9881 Jan, Type 2 diabetes mellitus without complication [...] J01.00 and Encounter for Depo-Provera contraception Z30.42 [facility] [id number] [place] [address] 46622- 1155 Dec, Chronic pain G89.29 [place] [id number] [place] [address] 11694- 2404 Dec, Abnormal ankle brachial index (BERNARDINO) R68.89 [place] [id number] [place] [address] 22396- 5266 Dec, [place] [id number] [place] [address] 24838- 2837 Dec, Routine gynecological examination Z01.419 ; Chronic [...] virus) infection B00.9 and Allergic rhinitis 477.9 [place] [id number] [place] [address] 99607- 1357 28 Nov, 2016 Chronic pain G89.29 [place] [id number] [place] [address] 82097- 0600 02 Nov, 2016 Chronic pain G89.29 ; [...] mucoid otitis media of both ears H65.113 [place] [id number] [place] [address] 12181- 0940 Oct, [place] [id number] [place] [address] 03446- 3839 Oct, Chronic pain G89.29 [place] [address] 82557- 1748 Oct, Chronic pain G89.29 [place] [address] 04793- 2089 Sep, Chronic pain G89.29 ; Type 2 diabetes mellitus without complication E11.9 ; Essential hypertension I10 ; Radiculopathy of lumbar region M54.16 ; Spinal stenosis, lumbar region M48.06 ; Gastroesophageal reflux disease without esophagitis K21.9 ; Encounter for surveillance of injectable contraceptive Z30.42 ; Bilateral cold feet R20.9 ; Pain of left foot M79.672 and Pain in right foot M79.671 [place] [address] 50622- 3187 Sep, [place] [address] 65218- 6884 Aug, [place] [address] 51013- 5729 Aug, [place] [address] 65578- 5178 Aug, Chronic pain G89.29 ; Type 2 diabetes mellitus without complication E11.9 ; Essential hypertension I10 ; Rash and nonspecific skin eruption R21 and Upper respiratory infection, acute J06.9 [place] [address] 02301- 6227 Aug, [place] [address] 98677- 2424 Aug, [place] [address] 04091- 7339 Jul, [address] 88720- 7348 Jul, Dysuria R30.0 ; Encounter for Depo-Provera contraception Z30.42 ; Herpes simplex B00.9 ; Nausea & vomiting R11.2 and Asthma J45.909 [place] [address] [place] [address]- 7379 21 Jun, 2016 Dysuria R30.0 [facility] [id number] [place] [address] 98138- 5406 19 Jun, 2016 Dysuria R30.0 [facility] [id number] [place] [address] 32895- 0267 15 Jun, 2016 [facility] [address] 47249- 8649 13 Jun, 2016 [facility] [id number] [place] [address] 81936- 4039 May, [facility] [id number] [place] [address] 15121- 3040 May, [facility] [id number] [place] [address] 22363- 9481 May, Chronic pain G89.29 ; Essential hypertension I10 ; Type 2 diabetes mellitus without complication E11.9 ; Edema of both feet R60.0 and Rash and nonspecific skin eruption R21 [facility] [id number] [place] [address] 92136- 1860 Apr, [facility] [id number] [place] [address] 60058- 8693 Mar, Carpal tunnel syndrome, left upper limb G56.02 and Carpal tunnel syndrome, right upper limb G56.01 [facility] [id number] [place] [address] 08266- 4535 Mar, [facility] [id number] [place] [address] 55829- 9881 Mar, Encounter for Depo-Provera contraception Z30.42 [facility] [id number] [place] [address] 05655- 2043 February, [facility] [id number] [place] [address] 21299- 3535 February, [facility] [id number] [place] [address] 15857- 8061 February, Chronic pain G89.29 ; Essential hypertension I10 ; Type 2 diabetes mellitus without complication E11.9 ; HSV (herpes simplex virus) infection B00.9 ; Anxiety F41.9 ; Hypersomnia G47.10 ; Tobacco abuse Z72.0 ; Hand pain, left M79.642 ; Hand pain, right M79.641 ; Left foot pain M79.672 and Heart palpitations R00.2 [place] [address] 76709- 5597 Jan, [place] [address] 79288- 8380 Jan, [place] [id number] [place] [address] 63207- 5438 Jan, [address] 76353- 2584 Jan, [place] [id number] [place] [address] 96710- 4950 Jan, Upper respiratory infection J06.9 and Type 2 diabetes mellitus without complication E11.9 [id number] [place] [address] 46885- 7446 Dec, [place] [id number] [place] [address] 00414- 8806 Dec, Chronic pain G89.29 ; Essential hypertension I10 ; Type 2 diabetes mellitus without complication E11.9 ; HSV (herpes simplex virus) infection B00.9 ; Anxiety F41.9 ; Upper respiratory infection J06.9 ; Hypersomnia G47.10 and Tobacco abuse Z72.[address] 14400- 7640 17 Dec, 2015 Encounter for Depo-Provera contraception Z30.42 [place] [id number] [place] [address] 98912- 2305 Dec, [place] [id number] [place] [address] 88561- 6979 Dec, Chronic pain G89.29 ; Sinusitis J32.9 ; Snoring R06.83 and Daytime hypersomnia G47.19 [place] [id number] [place] [address] 00414- 8765 Nov, HSV (herpes simplex virus) infection B00.9 ; Encounter for Papanicolaou smear for cervical cancer screening Z12.4 ; Screening for STD sexually transmitted disease Z11.3 and Bartholin's gland cyst N75.0 [place] [id number] [place] [address] 82581- 8257 Nov, [place] [address] 61044- 0652 Nov, [place] [id number] [place] [address] 49758- 4394 Nov, Essential hypertension I10 ; Type 2 diabetes mellitus without complication E11.9 ; HSV (herpes simplex virus) infection B00.9 ; Spinal stenosis, lumbar region M48.06 and Vaginal yeast infection B37.3 [place] [id number] [place] [address] 64651- 2019 Nov, [place] [id number] [place] [address] 57966- 5868 Nov, [place] [id number] [place] [address] 68195- 4429 Oct, [place] [id number] [place] [address] 44588- 7673 Oct, HSV (herpes simplex virus) infection B00.9 ; Yeast infection B37.9 ; Change in bowel habit R19.4 ; Nausea & vomiting R11.2 and Gastroesophageal reflux disease without esophagitis K21.9 [place] [id number] [place] [address] 45956- 5041 Oct, [place] [address] [place] [address] 11941- 7108 Oct, Type 2 diabetes mellitus without complication E11.9 ; Essential hypertension I10 and Acute maxillary sinusitis, recurrence not specified J01.[address] 29277- 5795 Oct, [address] 88119- 7128 Oct, [address] 27075- 1400 Oct, Exposure to head lice Z20.7 ; Blood glucose abnormal R73.09 ; Boil of buttock L02.32 and Type 2 diabetes mellitus without complication E11.[address] 59909- 3591 Oct, [address] 60314- 9103 Sep, [address] 16773- 8434 Sep, [address] 07474- 3068 Aug, Encounter for Depo-Provera contraception Z30.[address] 90139- 5083 Aug, Anxiety F41.9 ; Spinal stenosis, lumbar region M48.06 ; Radiculopathy of lumbar region M54.16 ; Asthma J45.909 ; GERD (gastroesophageal reflux disease) K21.9 ; Essential hypertension I10 and Long-term use of high- risk medication Z79.[address] 84706- 1219 Jul, [address] 58536- 1549 10 Jun, 2015 [address] 56012- 4546 Jun, [place] [id number] [place] [address] 34282- 2701 Jun, Anxiety 300.00 ; Asthma 493.90 ; Hyperhidrosis 705.21 ; Chest discomfort 786.59 and Upper respiratory infection 465.[address] 62125- 7501 May, Encounter for Depo-Provera contraception V25.[address] 18449- 3425 May, [address] 28576- 1507 May, [address] 51181- 4872 May, Spinal stenosis of lumbar region with radiculopathy 724.02 ; Bulging of intervertebral disc between L4 and L5 722.10 ; GERD ( gastroesophageal reflux disease) 530.81 ; Chronic pain 338.29 ; Declining mobility 799.89 and Epigastric pain 789.[address] 83199- 5256 Apr, [address] 26522- 5278 Apr, Nausea 787.02 and Heart burn 787.[address] 88405- 1063 Mar, Lumbago 724.2 ; Vitamin D deficiency 268.9 ; Anxiety 300.00 ; Allergic rhinitis 477.9 and Contraceptive surveillance V25.[address] 05573- 7931 February, 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 ; Chronic pain 338.29 and Vaginal discharge 623.[address] 62063- 3596 February, [facility] [place] [facility] [address] [id number] [place] [address]- 5815 February, [facility] [place] [facility] [address] [id number] [place] [address]- 1350 Jan, [facility] [place] [facility] [address] [id number] [place] [address] Jan, [facility] [place] [facility] [address] [id number] [place] [address] Dec, [facility] [place] [facility] [address] [id number] [place] [address] Dec, [facility] [place] [facility] [address] [id number] [place] [address] Dec, [facility] [place] [facility] [address] [id number] [place] [address] Dec, [facility] [place] [facility] [address] [id number] [place] [address] Dec, [facility] [place] [facility] [address] [id number] [place] [address] Dec, [facility] [place] [facility] [address] [id number] [place] [address] Dec, [facility] [place] [facility] [address] [id number] [place] [address] Dec, [facility] [place] [facility] [address] [id number] [address] Dec, [facility] [place] [facility] [address] [id number] [place] [address] Dec, [facility] [place] [facility] [address] [id number] [place] [address] Dec, [facility] [place] [facility] [address] [id number] [place] [address] Dec, [facility] [place] [facility] [address] [id number] [place] [address] 27 Nov, 2014 [facility] [place] [facility] [address] [id number] [place] [address] 27 Nov, 2014 [facility] [place] [facility] [address] [id number] [place] [address] 24 Nov, 2014 [facility] [place] [facility] [address] [facility] [id number] [place] [address] 24 Nov, 2014 [facility] [place] [facility] [address] [id number] [place] [address] 23 Nov, 2014 [facility] [place] [facility] [address] [facility] [id number] [place] [address] 23 Nov, 2014 [facility] [place] [facility] [address] [facility] [id number] [place] [address] 16 Nov, 2014 [facility] [place] [facility] [address] [facility] [id number] [place] [address] 16 Nov, 2014 [facility] [place] [facility] [address] [facility] [id number] [place] [address] 13 Nov, 2014 [facility] [place] [facility] [address] [facility] [facility] [id number] [address] 13 Nov, 2014 [facility] [place] [facility] [address] [facility] [id number], [place] [address] 13 Nov, 2014 [facility] [place] [facility] [address] [facility] [id number], [place] [address] 13 Nov, 2014 [facility] [place] [facility] [address] [facility] [id number] [place] [address] 9379 13 Nov, 2014 [facility] [place] [facility] [address] [facility] [id number], [place] [address] 1158 13 Nov, 2014 [facility] [place] [facility] [address] [facility] [id number], [place] [address] 13 Nov, 2014 [facility] [place] [facility] [address] [facility] [id number], [place] [address] 2652 13 Nov, 2014 [facility] [place] [facility] [address] [id number] [place] [address]- 1506 Nov, 2014 [facility] [place] [facility] [address] [id number] [place] [address]- 2366 Nov, 2014 [facility] [place] [facility] [address] [facility] [id number] [place] [address]- 3726 Nov, 2014 [facility] [place] [facility] [address] [id number] [place] [address]- 2545 Nov, 2014 [facility] [place] [facility] [address] [id number] [place] [address]- 6969 Nov, 2014 [facility] [place] [facility] [address] [facility] [id number] [place] [address]- 9521 Nov, 2014 [facility] [place] [facility] [address] [id number] [place] [address]- 5673 Nov, 2014 [facility] [place] [facility] [address] [facility] [id number] [place] [address]- 2425 Oct, [facility] [place] [facility] [address] [id number] [place] [address]- 0781 Oct, [facility] [place] [facility] [address] [facility] [id number] [place] [address]- 3988 Oct, [facility] [place] [facility] [address] [facility] [id number] [place] [address]- 2540 Oct, [facility] [place] [facility] [address] [facility] [id number] [place] [address]- 2542 Oct, [facility] [place] [facility] [address] [facility] [id number] [place] [address]- 9880 Oct, [facility] [place] [facility] [address] [facility] [id number] [place] [address]- 6553 Oct, [facility] [place] [facility] [address] [facility] [id number] [place] [address]- 1659 Oct, [facility] [place] [facility] [address] [id number] [place] [address]- 5571 Oct, [facility] [place] [facility] [address] [id number] [place] [address]- 9424 Oct, [facility] [place] [facility] [address] [id number] [place] [address]- 3549 Oct, [facility] [place] [facility] [address] [id number] [place] [address]- 5920 Oct, [facility] [place] [facility] [address] [id number] [place] [address]- 2237 Oct, [facility] [place] [facility] [address] [id number] [place] [address]- 6141 Oct, [facility] [place] [facility] [address] [id number] [place] [address]- 6348 Oct, [facility] [place] [facility] [address] [id number] [place] [address]- 9335 Oct, [facility] [place] [facility] [address] [id number] [place] [address]- 1034 Oct, [facility] [place] [facility] [address] [id number] [place] [address]- 4858 Oct, [facility] [place] [facility] [address] [id number] [place] [address]- 6350 Oct, [facility] [place] [facility] [address] [id number], [place] [address]- 4822 Oct, [facility] [place] [facility] [address] [id number] [place] [address]- 4788 Oct, [facility] [place] [facility] [address] [id number] [place] [address]- 2466 Sep, [facility] [place] [facility] [address] [id number], [place] [address]- 5832 Sep, [facility] [place] [facility] [address] [id number], [place] [address]- 5825 18 Sep, 2014 [facility] [place] [facility] [address] [id number] [place] [address]- 3510 18 Sep, 2014 [facility] [place] [facility] [address] [id number] [place] [address]- 6196 17 Sep, 2014 [facility] [place] [facility] [address] [id number] [place] [address]- 2436 17 Sep, 2014 [facility] [place] [facility] [address] [id number] [place] [address]- 8794 15 Sep, 2014 [facility] [place] [facility] [address] [id number] [place] [address]- 4555 15 Sep, 2014 [facility] [place] [facility] [address] [id number] [place] [address]- 1136 12 Sep, 2014 [facility] [place] [facility] [address] [id number] [place] [address]- 6188 12 Sep, 2014 [facility] [place] [facility] [address] [id number] [place] [address]- 0004 11 Sep, 2014 [facility] [place] [facility] [address] [id number] [place] [address]- 1518 11 Sep, 2014 [facility] [place] [facility] [address] [id number] [place] [address]- 2390 11 Sep, 2014 [facility] [place] [facility] [address] [id number] [place] [address]- 9063 11 Sep, 2014 [facility] [place] [facility] [address] [id number] [place] [address]- 9619 11 Sep, 2014 [facility] [place] [facility] [address] [id number] [place] [address]- 6718 11 Sep, 2014 [facility] [place] [facility] [address] [id number] [place] [address]- 4120 10 Sep, 2014 [facility] [place] [facility] [address] [id number] [place] [address]- 5171 10 Sep, 2014 [facility] [place] [facility] [address] [id number] [place] [address]- 9402 Sep, [facility] [place] [facility] [address] [id number] [place] [address]- 9839 Sep, [facility] [place] [facility] [address] [id number] [place] [address]- 7084 Aug, [facility] [place] [facility] [address] [id number] [place] [address]- 2014 Aug, [facility] [place] [facility] [address] [id number] [place] [address]- 8118 Aug, [facility] [place] [facility] [address] [id number] [place] [address]- 7581 Aug, [facility] [place] [facility] [address] [id number] [place] [address]- 3514 Aug, [facility] [place] [facility] [address] [id number] [place] [address]- 9828 Aug, [facility] [place] [facility] [address] [id number] [place] [address]- 8236 Aug, [facility] [place] [facility] [address] [id number] [place] [address]- 8016 Aug, [facility] [place] [facility] [address] [id number] [place] [address]- 9389 Aug, [facility] [place] [facility] [address] [id number] [place] [address]- 9027 Jul, [facility] [place] [facility] [address] [id number] [place] [address]- 0156 Jul, [facility] [place] [facility] [address] [id number] [place] [address]- 9575 Jul, [facility] [place] [facility] [address] [id number] [place] [address]- 9053 Jul, [facility] [place] [facility] [address] [id number] [place] [address]- 3614 16 Jul, 2014 [facility] [place] [facility] [address] [id number] [place] [address]- 0995 16 Jul, 2013 [facility] [place] [facility] [address] [id number] [place] [address]- 2253 Jul, [facility] [place] [facility] [address] [id number] [place] [address]- 0704 13 Jul, 2014 [facility] [place] [facility] [address] [id number] [place] [address]- 6577 10 Jul, 2014 [facility] [place] [facility] [address] [id number] [place] [address]- 8789 10 Jul, 2014 [facility] [place] [facility] [address] [id number] [place] [address]- 0014 10 Jul, 2014 [facility] [place] [facility] [address] [id number] [place] [address]- 3253 Jul, [facility] [place] [facility] [address] [id number] [place] [address]- 0379 07 Jul, 2014 [facility] [place] [facility] [address] [id number] [place] [address]- 4627 07 Jul, 2014 [facility] [place] [facility] [address] [id number], [place] [address]- 8624 30 Jun, 2013 [facility] [place] [facility] [address] [id number], [place] [address]- 5069 30 Sep, 2013 [facility] [place] [facility] [address] [id number], [place] [address]- 8200 25 Sep, 2013 [facility] [place] [facility] [address] [id number] [place] [address]- 8249 25 Sep, 2013 [facility] [place] [facility] [address] [id number], [place] [address]- 6985 25 Jun, 2013 [facility] [place] [facility] [address] [id number], [place] [address]- 4841 25 Jun, 2013 [facility] [place] [facility] [address] [id number] [place] [address]- 2049 24 Sep, 2013 [facility] [place] [facility] [address] [id number] [place] [address] 2546 24 Sep, 2013 [facility] [place] [facility] [address] [id number] [place] [address] 2546 22 Sep, 2013 [facility] [place] [facility] [address] [id number] [place] [address] 2546 22 Sep, 2013 [facility] [place] [facility] [address] [id number] [place] [address] 2546 17 Sep, 2013 [facility] [place] [facility] [address] [id number] [place] [address]- 9323 17 Sep, 2013 [facility] [place] [facility] [address] [id number] [place] [address] 2544 16 Sep, 2013 [facility] [place] [facility] [address] [id number] [place] [address]- 2272 16 Sep, 2013 [facility] [place] [facility] [address] [id number] [place] [address] 2542 15 Sep, 2013 [facility] [place] [facility] [address] [id number] [place] [address] 254 15 Sep, 2013 [facility] [place] [facility] [address] [id number] [place] [address]- 2541 12 Sep, 2013 [facility] [place] [facility] [address] [id number] [place] [address] 2546 12 Sep, 2013 [facility] [place] [facility] [address] [id number] [place] [address] 2544 11 Sep, 2013 [facility] [place] [facility] [address] [id number] [place] [address] 2546 11 Sep, 2013 [facility] [place] [facility] [address] [id number] [place] [address] 2546 11 Sep, 2013 [facility] [place] [facility] [address] [id number] [place] [address] 2541 11 Jun, 2014 [facility] [place] [facility] [address] [id number] [place] [address]- 4296 Jun, 2013 [facility] [place] [facility] [address] [id number] [place] [address]- 6249 Jun, [facility] [place] [facility] [address] [id number] [place] [address]- 7452 Jun, [facility] [place] [facility] [address] [id number] [place] [address]- 8300 Jun, [facility] [place] [facility] [address] [id number] [place] [address]- 1319 May, [facility] [place] [facility] [address] [id number] [place] [address]- 0198 May, [facility] [place] [facility] [address] [id number] [place] [address]- 1460 May, [facility] [place] [facility] [address] [id number] [place] [address]- 3638 May, [facility] [place] [facility] [address] [id number] [place] [address]- 2763 May, [facility] [place] [facility] [address] [id number] [place] [address]- 0364 May, [facility] [place] [facility] [address] [id number] [place] [address]- 3253 May, [facility] [place] [facility] [address] [id number] [place] [address]- 5935 May, [facility] [place] [facility] [address] [id number] [place] [address]- 6985 May, [facility] [place] [facility] [address] [id number] [place] [address]- 4473 May, [facility] [place] [facility] [address] [id number] [place] [address]- 4938 May, [facility] [place] [facility] [address] [id number] [place] [address]- 9746 May, [facility] [place] [facility] [address] [id number] [place] [address]- 3998 May, [facility] [place] [facility] [address] [id number] [place] [address]- 4316 Apr, [facility] [place] [facility] [address] [id number] [place] [address]- 2904 Apr, [facility] [place] [facility] [address] [id number] [place] [address]- 8718 Apr, [facility] [place] [facility] [address] [id number] [place] [address]- 1481 Apr, [facility] [place] [facility] [address] [id number] [place] [address]- 4567 Apr, [facility] [place] [facility] [address] [id number] [place] [address]- 8298 Mar, [facility] [place] [facility] [address] [id number] [place] [address]- 0507 Mar, [facility] [place] [facility] [address] [id number] [place] [address]- 8517 Mar, [facility] [place] [facility] [address] [id number] [place] [address]- 3791 February, [facility] [place] [facility] [address] [id number] [place] [address]- 9465 February, [facility] [place] [facility] [address] [id number] [place] [address]- 5693 February, [facility] [place] [facility] [address] [id number] [place] [address]- 3769 February, [facility] [place] [facility] [address] [id number] [place] [address]- 7901 February, [facility] [place] [facility] [address] [id number] [place] [address]- 7447 February, [facility] [place] [facility] [address] [id number] [place] [address]- 7340 February, [facility] [address] [id number] [place] [address]- 8155 February, [facility] [place] [facility] [address] [id number] [place] [address]- 6065 February, [facility] [address] [id number] [place] [address]- 9114 Jan, [facility] [place] [facility] [address] [id number] [place] [address]- 7590 Jan, [facility] [address] [id number] [place] [address]- 0062 Jan, [facility] [address] [id number] [place] [address]- 5150 Jan, [facility] [place] [facility] [address] [id number] [place] [address]- 6148 Jan, [facility] [address] [id number] [place] [address]- 7559 Dec, [facility] [place] [facility] [address] [id number] [place] [address]- 4131 Dec, [facility] [address] [id number] [place] [address]- 9641 Dec, [facility] [place] [facility] [address] [id number] [place] [address]- 7818 Dec, [facility] [place] [facility] [address] [id number] [place] [address]- 1000 Dec, [facility] [place] [facility] [address] [id number] [place] [address]- 9996 Nov, [facility] [place] [facility] [address] [id number] [place] [address]- 0035 Nov, [facility] [place] [facility] [address] [id number] [place] [address]- 5502 Nov, [facility] [place] [facility] [address] [id number] [place] [address]- 2338 Nov, [facility] [place] [facility] [address] [id number] [place] [address]- 2575 Oct, [facility] [place] [facility] [address] [id number] [place] [address]- 1703 Oct, [facility] [place] [facility] [address] [id number] [place] [address]- 2812 Oct, [facility] [place] [facility] [address] [id number] [place] [address]- 2280 Oct, [facility] [place] [facility] [address] [id number] [place] [address]- 5936 Oct, [facility] [place] [facility] [address] [id number] [place] [address]- 4761 Oct, [facility] [place] [facility] [address] [id number] [place] [address]- 1908 Oct, [facility] [place] [facility] [address] [id number] [place] [address]- 2422 Oct, [facility] [place] [facility] [address] [id number] [place] [address]- 8255 Oct, [facility] [place] [facility] [address] [id number], [place] [address]- 1289 Oct, [facility] [place] [facility] [address] [id number], [place] [address]- 9120 Aug, [facility] [place] [facility] [address] [id number] [place] [address]- 8557 Aug, [facility] [place] [facility] [address] [id number], [place] [address]- 7867 Jul, [facility] [place] [facility] [address] [id number] [place] [address]- 2025 Jul, [facility] [place] [facility] [address] [id number] [place] [address]- 9914 09 Jul, 2013 [facility] [address] [id number] [place] [address]- 0275 Jul, [facility] [address] [id number] [place] [address]- 6789 Jul, [facility] [address] [facility] [id number] [place] [address]- 5077 Jul, [facility] [address] [id number] [place] [address]- 2712 Apr, [facility] [address] [id number] [place] [address]- 7968 Dec, [facility] [place] [facility] [address] [id number] [place] [address]- 7616 Nov, [facility] [address] [facility] [id number] [place] [address]- 1427 Nov, [facility] [address] [id number] [place] [address]- 2969 Nov, [facility] [address] [facility] [id number] [place] [address]- 6567 Oct, [facility] [address] [facility] [id number] [place] [address]- 8443 Sep, [facility] [place] [facility] [address] [id number] [place] [address]- 4826 Sep, [facility] [place] [facility] [address] [id number] [place] [address]- 9513 Sep, [facility] [place] [facility] [address] [id number] [place] [address]- 1539 Sep, [facility] [place] [facility] [address] [facility] [id number] [place] [address]- 2424 Aug, [facility] [place] [facility] [address] [facility] [id number] [place] [address]- 5790 Aug, [facility] [place] [facility] [address] [id number] [place] [address]- 2771 Jul, [facility] [place] [facility] [address] [id number] [place] [address]- 8259 Jul, [facility] [place] [facility] [address] [id number] [place] [address]- 4221 28 Jun, 2012 [facility] [place] [facility] [address] [id number] [place] [address]- 9306 26 Jun, 2012 [facility] [place] [facility] [address] [id number] [place] [address] 24 Jun, 2012 [facility] [place] [facility] [address] [id number] [place] [address] 24 Jun, 2012 [facility] [place] [facility] [address] [id number] [place] [address] Jun, [facility] [place] [facility] [address] [id number] [place] [address] 31 Apr, 2012 [facility] [place] [facility] [address] [id number] [place] [address] 30 Apr, 2012 [facility] [place] [facility] [address] [id number] [place] [address] Apr, [facility] [place] [facility] [address] [id number] [place] [address] Mar, [facility] [place] [facility] [address] [id number] [address] Mar, [facility] [place] [facility] [address] [id number] [place] [address] Mar, [facility] [place] [facility] [address] [id number] [place] [address] February, [facility] [place] [facility] [address] [id number] [place] [address] Jan, [facility] [place] [facility] [address] [id number] [address] Dec, [facility] [address] [id number] [place] [address] Dec, [facility] [place] [facility] [address] [id number] [place] [address] Dec, [facility] [place] [facility] [address] [id number] [place] [address] Dec, [facility] [place] [facility] [address] [id number] [place] [address] Dec, [facility] [place] [facility] [address] [id number] [place] [address] 14 Nov, 2011 [facility] [place] [facility] [address] [id number] [place] [address] Nov, [facility] [place] [facility] [address] [facility] [id number] [place] [address] Oct, [facility] [place] [facility] [address] [id number] [place] [address] Oct, [facility] [place] [facility] [address] [facility] [id number] [place] [address] Oct, [facility] [place] [facility] [address] [facility] [id number] [place] [address] Sep, [facility] [place] [facility] [address] [id number][place] [address] Aug, [facility] [place] [facility] [address] [id number], [place] [address] Aug, [facility] [place] [facility] [address] [id number] [place] [address] 28 Jul, 2011 [facility] [place] [facility] [address] [id number] [place] [address] 24 Jul, 2011 [facility] [place] [facility] [address] [facility] [id number][place] [address] Jul, [facility] [place] [facility] [address] [id number] [place] [address] 13 Jan, 2011 [facility] [place] [facility] [address] [id number] [place] [address] 29 Sep, 2010 [facility] [place] [facility] [address] [id number] [place] [address] 27 Sep, 2010 [facility] [place] [facility] [address] [id number] [place] [address] 2546 20 Sep, 2010 [facility] [place] [facility] [address] [id number] [place] [address] 2540 20 Sep, 2010 [facility] [place] [facility] [address] [id number] [place] [address] 06 Sep, 2010 [facility] [place] [facility] [address] [id number] [place] [address] 16 Aug, 2010 [facility] [place] [facility] [address] [id number] [place] [address] 16 Aug, 2010 [facility] [place] [facility] [address] [id number] [place] [address] 08 Aug, 2010 [facility] [place] [facility] [address] [id number] [place] [address] Jul, [facility] [place] [facility] [address] [id number] [place] [address] 19 Jul, 2010 [facility] [place] [facility] [address] [id number] [place] [address] 12 Jul, 2010 [facility] [place] [facility] [address] [id number] [place] [address] 2544 11 May, 2010 [facility] [place] [facility] [address] [id number] [place] [address] 13 Apr, 2010 [facility] [place] [facility] [address] [id number] [place] [address]46 18 Dec, 2009 [facility] [place] [facility] [address] [id number] [place] [address] Sep, [facility] [address] [facility] [id number], [place] [address] Sep, [facility] [address] [facility] [id number], [place] [address] Aug, [facility] [address] [facility] [id number], [place] [address] Aug, [facility] [address] [facility] [id number], [place] [address] Jul, [facility] [address] [facility] [id number], [place] [address] Mar, IMMUNIZATIONS No Known Immunizations SOCIAL HISTORY Never Assessed REASON FOR VISIT Controlled medications due 06/13 PLAN OF CARE VITAL SIGNS MEDICATIONS Medication Instructions Dosage Frequency Start Date End Date Duration Status Clonazepam 0.5 MG Orally prn 3 times a day 1 tablet 8h 14 Dec, 2017 12 days Active MS Contin 15 mg Orally every 12 hrs 1 tablet 12h May, 12 days Active Hydrocodone-Acetaminophen 5-325 MG Orally prn 4 times a day 1 tablet 6h May, 12 days Active Lyrica 150 MG Orally Three times a day 1 capsule 8h 12 days Active RESULTS No Results PROCEDURES No Known [...] 2015 Hospitalization History Surgery(s) only Hospitalization History [facility] [place] and transferred to [place]-sepsis/ARF 2016
--- OUTSIDE RECORDS SUMMARY | 2018-10-08 19:42 | XMS REPORT ---
Author Author JENNY WOLF [facility] Address [address] [place] [address] Care Team Providers Care Cutter Woodwind Reeds Name Role Phone JENNY WOLF Unavailable PROBLEMS Type Condition ICD9-CM Code YGR29-FP Code Onset Dates Condition Status SNOMED Code Problem HSV (herpes simplex virus) infection B00.9 Active 21369182 Problem Edema of both feet R60.0 Active 108720905 Problem Tobacco abuse Z72.0 Active 08776246 Problem Generalized anxiety disorder F41.1 Active 54026994 Problem Chronic pain disorder G89.4 Active 072648447 Problem Chronic migraine G43.709 Active 04001358 Problem Mixed hyperlipidemia E78.2 Active 022587464 Problem Type 2 diabetes mellitus with diabetic neuropathy, unspecified E11.40 Active 71719854 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 Active 692174713 Problem Anxiety F41.9 Active 60401646 Problem Radiculopathy of lumbar region M54.16 Active 028114466 Problem Bulging lumbar disc M51.26 Active 331200550 Problem Essential hypertension I10 Active 75357486 Problem Asthma J45.909 Active 069353691 Problem Chronic pain G89.29 Active 53329156 Problem Spinal stenosis, lumbar region M48.06 Active 02716549 Problem Gastroesophageal reflux disease without esophagitis K21.9 Active [id number] ALLERGIES No Information ENCOUNTERS Encounter Location Date Diagnosis [facility] [address] [facility] [id number] [address] Jun, [facility] [address] [address] 85[address] Jun, [facility] [address] [id number] [address] 5654 Jun, [facility] [id number] [place] [address] 41874- 7392 06 Jun, 2018 Asthma J45.909 [facility] [id number] [place] [address] 30706- 3042 04 Jun, 2018 Type 2 diabetes mellitus with diabetic neuropathy, unspecified E11.40 ; Chronic pain disorder G89.4 and Generalized anxiety disorder F41.1 [facility] [facility] [address] 93935- 0176 May, Chronic pain G89.29 and Anxiety F41.9 [facility] [id number] [place] [address] 92610- 6286 May, [facility] [address] 74935- 4428 May, Encounter for Depo-Provera contraception Z30.42 [place] [facility] [address] 50509- 2234 May, [place] [address] 81644- 8902 Apr, Chronic pain G89.29 [place] [address] 98817- 1914 Apr, Chronic pain G89.29 and Anxiety F41.9 [facility] [id number] [place] [address] 15006- 1192 Mar, HSV (herpes simplex virus) infection B00.9 ; Anxiety F41.9 and Chronic pain G89.29 [facility] [id number] [place] [address] 84173- 1317 Mar, [facility] [id number] [place] [address] 72640- 6481 Mar, Chronic pain G89.29 [facility] [id number] [place] [address] 08293- 2843 February, Chronic pain G89.29 [place] [address] 86951- 9467 Jan, Chronic pain G89.29 [place] [address] 19900- 4316 Jan, 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 [place] [address] 44276- 5677 Jan, Encounter for Depo-Provera contraception Z30.42 [place] [address] 02971- 3234 Jan, [facility] [address] 63554- 7740 Jan, Chronic pain G89.29 and Anxiety F41.9 [place] [address] 39953- 9885 Jan, [facility] [address] 67054- 4868 Dec, [place] [address] 16852- 8467 Dec, Gastroesophageal reflux disease without esophagitis K21.9 and Anxiety F41.9 [place] [address] 37315- 3634 Dec, Essential hypertension I10 ; Mixed hyperlipidemia E78.2 ; Type 2 diabetes mellitus with diabetic neuropathy, unspecified E11.40 ; 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 ; Chronic pain G89.29 ; HSV (herpes simplex virus) infection B00.9 ; Anxiety F41.9 and Gastroesophageal reflux disease without esophagitis K21.9 [facility] [id number] [place] [address] 94794- 0025 Dec, Chronic pain G89.29 and Chronic migraine G43.709 [facility] [address] 86271- 4313 Nov, [place] [address] 88051- 0862 Nov, Essential hypertension I10 and Chronic pain G89.29 [facility] [place] [id number] [place] [address] 17261- 3502 Nov, Chronic pain G89.29 ; Essential hypertension I10 and Type 2 diabetes mellitus without complication E11.9 [facility] [id number] [place] [address] 73584- 7409 Oct, Chronic pain G89.29 [facility] [address] 29798- 5333 Oct, [place] [address] 96135- 5901 Sep, Type 2 diabetes mellitus without complication E11.9 ; Essential hypertension I10 ; custodial (current) use of insulin Z79.4 ; Chronic migraine G43.709 ; Chronic pain G89.29 and Acute non-recurrent maxillary sinusitis J01.00 [place] [address] 40440- 6271 Sep, Encounter for Depo-Provera contraception Z30.42 [place] [address] 44593- 6083 Sep, Chronic pain G89.29 and Radiculopathy of lumbar region M54.16 [facility] [id number] [place] [address] 88218- 1028 Sep, [facility] [id number] [place] [address] 76546- 0316 Sep, [facility] [place] [id number] [place] [address] 73019- 6602 Aug, Type 2 diabetes mellitus without complication E11.9 [facility] [id number] [place] [address] 64402- 4097 Aug, [facility] [id number] [place] [address] 96054- 7215 Aug, Radiculopathy of lumbar region M54.16 and Chronic pain G89.29 [facility] [address] [facility] [id number] [place] [address] 2546 Aug, Type 2 diabetes mellitus without complication E11.9 [facility] [address] [facility] [id number] [place] [address] 2546 Aug, Type 2 diabetes mellitus without complication E11.9 [facility] [address] [facility] [id number] [place] [address] 2546 Jul, Type 2 diabetes mellitus without complication E11.9 [facility] [address] [facility] [id number] [place] [address]- 2746 Jul, [facility] [address] [facility] [id number] [place] [address] 35407- 8946 Jul, Chronic pain G89.29 [facility] [address] [facility] [id number] [place] [address]- 5096 Jul, [facility] [address] [facility] [id number] [place] [address] 2546 Jul, [facility] [address] [facility] [id number] [place] [address] 90972- 3443 Jul, Type 2 diabetes mellitus without complication E11.9 [facility] [address] [facility] [id number] [place] [address] 2549 Jul, [facility] [address] [facility] [id number] [place] [address]- 2546 Jul, Type 2 diabetes mellitus without complication E11.9 [facility] [address] [facility] [id number] [place] [address] 2546 Jul, [facility] [address] [facility] [id number] [place] [address] 2546 Jul, [facility] [address] [facility] [id number] [place] [address]- 2546 Jul, [facility] [address] [facility] [id number] [place] [address]- 2693 Jun, Type 2 diabetes mellitus without complication E11.9 [facility] [id number] [place] [address] 68084- 8580 Jun, Chronic migraine G43.709 ; Type 2 diabetes mellitus without complication E11.9 ; Calculus of right kidney N20.0 ; Yeast dermatitis B37.2 and HSV (herpes simplex virus) infection B00.9 [facility] [address] 16828- 9251 Jun, Type 2 diabetes mellitus without complication E11.9 [facility] [id number] [place] [address] 31577- 3063 Jun, [facility] [address] 20828- 7050 Jun, Radiculopathy of lumbar region M54.16 and Chronic pain G89.29 [facility] [address] 60832- 8795 Jun, Encounter for Depo-Provera contraception Z30.42 [facility] [id number] [place] [address] 47014- 6606 Jun, Type 2 diabetes mellitus without complication E11.9 [facility] [id number] [place] [address] 43457- 5407 Jun, [facility] [id number] [place] [address] 94012 -2591 May, Acute nasopharyngitis (common cold) J00 [facility] [id number] [place] [address] 36928- 9870 May, Chronic pain G89.29 [facility] [id number] [place] [address] 55650- 6003 May, Headache following lumbar puncture G97.1 [facility] [id number] [place] [address] 18021- 8014 May, Radiculopathy of lumbar region M54.16 [facility] [id number] [place] [address] 56948- 3804 Apr, [place] [address] 27175- 4319 Apr, Type 2 diabetes mellitus without complication E11.9 ; Chronic pain G89.29 ; Essential hypertension I10 ; Radiculopathy of lumbar region M54.16 ; Spinal stenosis, lumbar region M48.06 ; Gastroesophageal reflux disease without esophagitis K21.9 ; HSV (herpes simplex virus) infection B00.9 ; Mixed hyperlipidemia E78.2 ; Anxiety F41.9 and Asthma J45.909 [place] [address] 91070- 0161 Apr, Encounter for Depo-Provera contraception Z30.[address] 84538- 3122 Apr, Chronic pain G89.29 and Anxiety F41.9 [facility] [id number] [place] [address] 53508- 6947 Mar, [facility] [facility] [address] 26037- 2449 Mar, [facility] [id number] [place] [address] 34867- 6210 Mar, Mixed hyperlipidemia E78.2 [facility] [id number] [place] [address] 87269- 8119 Mar, Type 2 diabetes mellitus without complication E11.9 ; Chronic pain G89.29 ; Essential hypertension I10 ; Radiculopathy of lumbar region M54.16 ; Spinal stenosis, lumbar region M48.06 ; Gastroesophageal reflux disease without esophagitis K21.9 ; HSV (herpes simplex virus) infection B00.9 ; Mixed hyperlipidemia E78.2 and Anxiety F41.9 [place] [id number] [place] [address] 76598- 9790 Mar, [place] [address] [place] [address]- 2586 Mar, [facility] [address] [address]- 3185 Mar, [facility] [address] [address]- 4449 February, Chronic pain G89.29 [facility] [id number] [place] [address] 54926- 3056 February, [facility] [id number] [place] [address] 41677- 3037 Jan, Chronic pain G89.29 [facility] [id number] [place] [address] 22894- 2739 Jan, Type 2 diabetes mellitus without complication E11.9 [facility] [id number] [place] [address] 01406- 2286 Jan, [facility] [id number] [place] [address] 27266- 8132 Jan, [facility] [id number] [place] [address] 99731- 1099 Jan, [facility] [address] [address]- 6761 Jan, Type 2 diabetes mellitus without complication [...] J01.00 and Encounter for Depo-Provera contraception Z30.42 [facility] [address] [address]- 1663 Dec, Chronic pain G89.29 [facility] [address] [id number] [address]- 9054 17 Dec, 2016 Abnormal ankle brachial index (BERNARDINO) R68.89 [facility] [facility] [id number] [place] [address] 07122- 6266 Dec, [place] [id number] [place] [address] 61901- 1940 Dec, Routine gynecological examination Z01.419 ; Chronic [...] virus) infection B00.9 and Allergic rhinitis 477.9 [place] [id number] [place] [address] 36456- 8809 Nov, Chronic pain G89.29 [facility] [id number] [place] [address] 48026- 3731 02 Nov, 2016 Chronic pain G89.29 ; [...] mucoid otitis media of both ears H65.113 [place] [address] [place] [address] 68485- 3446 Oct, [place] [id number] [place] [address] 29164- 4569 Oct, Chronic pain G89.29 [place] [id number] [place] [address] 83911- 6079 Oct, Chronic pain G89.29 [facility] [id number] [place] [address] 85520- 0299 Sep, Chronic pain G89.29 ; Type 2 diabetes mellitus without complication E11.9 ; Essential hypertension I10 ; Radiculopathy of lumbar region M54.16 ; Spinal stenosis, lumbar region M48.06 ; Gastroesophageal reflux disease without esophagitis K21.9 ; Encounter for surveillance of injectable contraceptive Z30.42 ; Bilateral cold feet R20.9 ; Pain of left foot M79.672 and Pain in right foot M79.671 [facility] [id number] [place] [address] 97382- 9952 Sep, [place] [address] 32339- 0211 17 Aug, 2016 [place] [id number] [place] [address] 57791- 0589 Aug, [place] [id number] [place] [address] 66762- 1903 Aug, Chronic pain G89.29 ; Type 2 diabetes mellitus without complication E11.9 ; Essential hypertension I10 ; Rash and nonspecific skin eruption R21 and Upper respiratory infection, acute J06.9 [facility] [id number] [place] [address] 52954- 9978 Aug, [place] [id number] [place] [address] 10870- 8755 Aug, [place] [id number] [place] [address] 24153- 3272 Jul, [facility] [id number] [place] [address] 91932- 4466 Jul, Dysuria R30.0 ; Encounter for Depo-Provera contraception Z30.42 ; Herpes simplex B00.9 ; Nausea & vomiting R11.2 and Asthma J45.909 [place] [address] [place] [address] 84248- 4576 Jun, Dysuria R30.0 [facility] [id number] [address]- 0887 19 Jun, 2016 Dysuria R30.0 [facility] [id number] [place] [address] 96253- 8586 15 Jun, 2016 [facility] [id number] [place] [address] 89683- 9507 13 Jun, 2016 [facility] [id number] [place] [address] 13240- 6713 May, [facility] [id number] [place] [address] 42341- 3246 May, [facility] [id number] [place] [address] 40249- 1842 May, Chronic pain G89.29 ; Essential hypertension I10 ; Type 2 diabetes mellitus without complication E11.9 ; Edema of both feet R60.0 and Rash and nonspecific skin eruption R21 [facility] [facility] [id number] [place] [address] 04429- 9560 Apr, [facility] [id number] [place] [address] 29035- 7500 Mar, Carpal tunnel syndrome, left upper limb G56.02 and Carpal tunnel syndrome, right upper limb G56.01 [facility] [id number] [place] [address] 18801- 5497 Mar, [facility] [id number] [place] [address] 84715- 9287 Mar, Encounter for Depo-Provera contraception Z30.42 [facility] [address] [id number] [address]- 2850 February, [place] [id number] [place] [address] 49572- 5235 February, [facility] [id number] [place] [address] 22351- 6827 February, Chronic pain G89.29 ; Essential hypertension I10 ; Type 2 diabetes mellitus without complication E11.9 ; HSV (herpes simplex virus) infection B00.9 ; Anxiety F41.9 ; Hypersomnia G47.10 ; Tobacco abuse Z72.0 ; Hand pain, left M79.642 ; Hand pain, right M79.641 ; Left foot pain M79.672 and Heart palpitations R00.2 [place] [address] 66383- 7306 Jan, [place] [address] 28278- 5076 Jan, [place] [address] 49771- 9610 Jan, [place] [address] 91583- 3524 Jan, [place] [address] 70011- 8341 Jan, Upper respiratory infection J06.9 and Type 2 diabetes mellitus without complication E11.9 [facility] [address] 74077- 6123 Dec, [place] [address] 39481- 2882 Dec, Chronic pain G89.29 ; Essential hypertension I10 ; Type 2 diabetes mellitus without complication E11.9 ; HSV (herpes simplex virus) infection B00.9 ; Anxiety F41.9 ; Upper respiratory infection J06.9 ; Hypersomnia G47.10 and Tobacco abuse Z72.0 [place] [address] 99241- 1013 Dec, Encounter for Depo-Provera contraception Z30.42 [place] [address] 61855- 3726 Dec, [place] [address] 80963- 9401 Dec, Chronic pain G89.29 ; Sinusitis J32.9 ; Snoring R06.83 and Daytime hypersomnia G47.19 [facility] [place] [id number] [place] [address] 62334- 1401 Nov, HSV (herpes simplex virus) infection B00.9 ; Encounter for Papanicolaou smear for cervical cancer screening Z12.4 ; Screening for STD sexually transmitted disease Z11.3 and Bartholin's gland cyst N75.0 [place] [address] 46043- 7374 Nov, [place] [address] 80589- 4912 Nov, [place] [address] 92084- 5882 Nov, Essential hypertension I10 ; Type 2 diabetes mellitus without complication E11.9 ; HSV (herpes simplex virus) infection B00.9 ; Spinal stenosis, lumbar region M48.06 and Vaginal yeast infection B37.3 [place] [address] 16626- 2264 Nov, [place] [address] 98738- 9161 Nov, [place] [address] 83253- 2158 Oct, [place] [address] 87676- 5695 Oct, HSV (herpes simplex virus) infection B00.9 ; Yeast infection B37.9 ; Change in bowel habit R19.4 ; Nausea & vomiting R11.2 and Gastroesophageal reflux disease without esophagitis K21.9 [place] [address] 80323- 6363 Oct, [place] [address] 82655- 4084 Oct, Type 2 diabetes mellitus without complication E11.9 ; Essential hypertension I10 and Acute maxillary sinusitis, recurrence not specified J01.00 [facility] [id number] [place] [address] 51975- 7365 Oct, [place] [address] 94334- 6804 Oct, [place] [address] 04929- 2419 Oct, Exposure to head lice Z20.7 ; Blood glucose abnormal R73.09 ; Boil of buttock L02.32 and Type 2 diabetes mellitus without complication E11.[address] 78188- 1069 Oct, [address] 17425- 8602 Sep, [address] 89464- 1738 Sep, [address] 43805- 5514 Aug, Encounter for Depo-Provera contraception Z30.[address] 40131- 2962 Aug, Anxiety F41.9 ; Spinal stenosis, lumbar region M48.06 ; Radiculopathy of lumbar region M54.16 ; Asthma J45.909 ; GERD (gastroesophageal reflux disease) K21.9 ; Essential hypertension I10 and Long-term use of high- risk medication Z79.8[address] [id number] [place] [address] 67138- 7112 Jul, [address] 65420- 3158 Jun, Hemorrhoid 455.[address] 58061- 2466 08 Jun, [address] 70886- 0058 Jun, Anxiety 300.00 ; Asthma 493.90 ; Hyperhidrosis 705.21 ; Chest discomfort 786.59 and Upper respiratory infection 465.[address] 71652- 6954 May, Encounter for Depo-Provera contraception V25.[address] 86655- 2822 May, [address] 84989- 2045 May, [address] 91195- 7880 May, Spinal stenosis of lumbar region with radiculopathy 724.02 ; Bulging of intervertebral disc between L4 and L5 722.10 ; GERD ( gastroesophageal reflux disease) 530.81 ; Chronic pain 338.29 ; Declining mobility 799.89 and Epigastric pain 789.[address] 67711- 3839 Apr, [address] 28101- 9676 Apr, Nausea 787.02 and Heart burn 787.[address] 18339- 7518 Mar, Lumbago 724.2 ; Vitamin D deficiency 268.9 ; Anxiety 300.00 ; Allergic rhinitis 477.9 and Contraceptive surveillance V25.[address] 30731- 3466 February, 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 ; Chronic pain 338.29 and Vaginal discharge 623.[address] 85518- 1058 February, [address] 81859- 1298 February, [facility] [place] [facility] [address] [id number] [place] [address]- 9483 14 Jan, 2015 [facility] [place] [facility] [address] [id number] [place] [address]- 0711 Jan, [facility] [place] [facility] [address] [id number] [place] [address]- 5797 Dec, [facility] [place] [facility] [address] [id number] [place] [address]- 7204 Dec, [facility] [place] [facility] [address] [id number] [place] [address]- 9780 Dec, [facility] [place] [facility] [address] [id number] [place] [address]- 0250 Dec, [facility] [place] [facility] [address] [id number] [place] [address]- 8183 Dec, [facility] [place] [facility] [address] [id number] [place] [address]- 6477 Dec, [facility] [place] [facility] [address] [id number] [place] [address]- 5599 Dec, [facility] [place] [facility] [address] [id number] [place] [address]- 6545 Dec, [facility] [place] [facility] [address] [id number] [place] [address] Dec, [facility] [place] [facility] [address] [id number] [place] [address] Dec, [facility] [place] [facility] [address] [id number] [place] [address] Dec, [facility] [place] [facility] [address] [id number] [place] [address] Dec, [facility] [place] [facility] [address] [id number] [place] [address] Nov, [facility] [place] [facility] [address] [id number] [place] [address] 27 Nov, 2014 [facility] [place] [facility] [address] [id number] [place] [address] 24 Nov, 2014 [facility] [place] [facility] [address] [facility] [id number] [place] [address] 24 Nov, 2014 [facility] [place] [facility] [address] [facility] [id number] [place] [address] 23 Nov, 2014 [facility] [place] [facility] [address] [id number] [place] [address] 23 Nov, 2014 [facility] [place] [facility] [address] [facility] [id number] [place] [address] 16 Nov, 2014 [facility] [place] [facility] [address] [facility] [id number] [place] [address] 16 Nov, 2014 [facility] [place] [facility] [address] [id number] [address] 13 Nov, 2014 [facility] [place] [facility] [address] [facility] [id number] [place] [address] 13 Nov, 2014 [facility] [place] [facility] [address] [facility] [id number] [place] [address] 13 Nov, 2014 [facility] [place] [facility] [address] [id number] [address] 13 Nov, 2014 [facility] [place] [facility] [address] [facility] [facility] [id number] [address] 13 Nov, 2014 [facility] [place] [facility] [address] [facility] [id number] [place] [address] 13 Nov, 2014 [facility] [place] [facility] [address] [facility] [id number] [place] [address] 5280 13 Nov, 2014 [facility] [place] [facility] [address] [facility] [id number] [place] [address] 13 Nov, 2014 [facility] [place] [facility] [address] [facility] [id number] [place] [address] Nov, 2014 [facility] [place] [facility] [address] [id number] [place] [address] 47[address] Nov, 2014 [facility] [place] [facility] [address] [id number] [place] [address] 4658 Nov, 2014 [facility] [place] [facility] [address] [id number] [place] [address] Nov, 2014 [facility] [place] [facility] [address] [id number] [place] [address]- 3865 Nov, 2014 [facility] [place] [facility] [address] [id number] [place] [address] 4787 Nov, 2014 [facility] [place] [facility] [address] [id number] [place] [address]- 5781 Nov, 2014 [facility] [place] [facility] [address] [facility] [id number] [place] [address]- 5372 Oct, [facility] [place] [facility] [address] [id number] [place] [address]- 4622 Oct, [facility] [place] [facility] [address] [id number] [place] [address]- 8760 Oct, [facility] [place] [facility] [address] [facility] [id number] [place] [address]- 8976 Oct, [facility] [place] [facility] [address] [id number] [place] [address]- 5542 Oct, [facility] [place] [facility] [address] [id number] [place] [address]- 3283 Oct, [facility] [place] [facility] [address] [id number] [place] [address]- 6199 Oct, [facility] [place] [facility] [address] [facility] [id number] [place] [address]- 1530 Oct, [facility] [place] [facility] [address] [id number] [place] [address]- 9703 Oct, [facility] [place] [facility] [address] [id number] [place] [address]- 6010 Oct, [facility] [place] [facility] [address] [id number] [place] [address]- 9462 Oct, [facility] [place] [facility] [address] [id number] [place] [address] Oct, [facility] [place] [facility] [address] [id number] [place] [address]- 7277 Oct, [facility] [address] [id number] [place] [address]- 2469 Oct, [facility] [place] [facility] [address] [id number] [place] [address]- 1252 Oct, [facility] [place] [facility] [address] [id number] [place] [address]- 5085 Oct, [facility] [place] [facility] [address] [id number] [place] [address]- 2179 Oct, [facility] [place] [facility] [address] [id number] [place] [address]- 3592 Oct, [facility] [place] [facility] [address] [id number] [place] [address]- 3518 Oct, [facility] [place] [facility] [address] [id number] [place] [address]- 4671 Oct, [facility] [place] [facility] [address] [id number] [place] [address]- 9468 Oct, [facility] [place] [facility] [address] [id number] [place] [address]- 0607 Sep, [facility] [place] [facility] [address] [id number] [place] [address]- 5710 Sep, [facility] [place] [facility] [address] [id number] [place] [address]- 7533 Sep, [facility] [place] [facility] [address] [id number] [place] [address]- 5763 18 Sep, 2014 [facility] [place] [facility] [address] [id number] [place] [address]- 8244 17 Sep, 2014 [facility] [place] [facility] [address] [id number] [place] 17 Sep, 2014 [facility] [place] [facility] [address] [id number] [place] [address]- 4466 15 Sep, 2014 [facility] [place] [facility] [address] [id number] [place] [address]- 2482 15 Sep, 2014 [facility] [place] [facility] [address] [id number] [place] [address]- 9163 12 Sep, 2014 [facility] [place] [facility] [address] [id number] [place] [address]- 8151 12 Sep, 2014 [facility] [place] [facility] [address] [id number] [place] [address]- 5181 11 Sep, 2014 [facility] [place] [facility] [address] [id number] [place] [address]- 6805 11 Sep, 2014 [facility] [place] [facility] [address] [id number] [place] [address]- 9113 11 Sep, 2014 [facility] [place] [facility] [address] [id number] [place] [address]- 2891 11 Sep, 2014 [facility] [place] [facility] [address] [id number] [place] [address]- 1533 11 Sep, 2014 [facility] [place] [facility] [address] [id number] [place] [address]- 8093 11 Sep, 2014 [facility] [place] [facility] [address] [id number] [place] [address]- 1430 10 Sep, 2014 [facility] [place] [facility] [address] [id number] [place] [address]- 9447 10 Sep, 2014 [facility] [place] [facility] [address] [id number] [place] [address]- 7067 08 Sep, 2014 [facility] [place] [facility] [address] [id number] [place] [address]- 5830 Sep, [facility] [place] [facility] [address] [id number] [place] [address]- 5453 Aug, [facility] [place] [facility] [address] [id number] [place] [address]- 0135 Aug, [facility] [place] [facility] [address] [id number] [place] [address]- 6956 Aug, [facility] [place] [facility] [address] [id number] [place] [address]- 2533 Aug, [facility] [place] [facility] [address] [id number] [place] [address]- 4522 Aug, [facility] [place] [facility] [address] [id number] [place] [address]- 2924 Aug, [facility] [place] [facility] [address] [id number] [place] [address]- 4420 Aug, [facility] [place] [facility] [address] [id number] [place] [address]- 7696 Aug, [facility] [place] [facility] [address] [id number] [place] [address]- 7085 Aug, [facility] [place] [facility] [address] [id number] [place] [address]- 1602 Jul, [facility] [place] [facility] [address] [id number] [place] [address]- 5531 Jul, [facility] [place] [facility] [address] [id number] [place] [address]- 9342 Jul, [facility] [place] [facility] [address] [id number] [place] [address]- 7570 Jul, [facility] [place] [facility] [address] [id number] [place] [address]- 9298 Jul, [facility] [place] [facility] [address] [id number] [place] [address]- 7133 Jul, [facility] [place] [facility] [address] [id number] [place] [address]- 1655 Jul, [facility] [place] [facility] [address] [id number] [place] [address]- 2276 Jul, [facility] [place] [facility] [address] [id number] [place] [address]- 9416 Jul, [facility] [place] [facility] [address] [id number] [place] [address]- 8137 Jul, [facility] [place] [facility] [address] [id number] [place] [address]- 8303 Jul, [facility] [place] [facility] [address] [id number] [place] [address]- 5219 Jul, [facility] [place] [facility] [address] [id number] [place] [address]- 9496 Jul, [facility] [place] [facility] [address] [id number] [place] [address]- 6418 Jul, [facility] [place] [facility] [address] [id number] [place] [address]- 0865 30 Jun, 2013 [facility] [place] [facility] [address] [id number] [place] [address]- 1112 30 Jun, 2013 [facility] [place] [facility] [address] [id number] [place] [address]- 9601 25 Jun, 2013 [facility] [place] [facility] [address] [id number] [place] [address]- 5763 25 Jun, 2013 [facility] [place] [facility] [address] [id number] [place] [address]- 2545 25 Jun, 2013 [facility] [place] [facility] [address] [id number] [place] [address]- 3258 25 Jun, 2013 [facility] [place] [facility] [address] [id number] [place] [address]- 3575 24 Jun, 2013 [facility] [place] [facility] [address] [id number] [place] [address]- 9744 24 Sep, 2013 [facility] [place] [facility] [address] [id number] [place] [address] 2546 22 Sep, 2013 [facility] [place] [facility] [address] [id number] [place] [address]- 3993 22 Sep, 2013 [facility] [place] [facility] [address] [id number] [place] [address]- 2956 17 Sep, 2013 [facility] [place] [facility] [address] [id number] [place] [address]- 8504 17 Sep, 2013 [facility] [place] [facility] [address] [id number] [place] [address]- 2681 16 Sep, 2013 [facility] [place] [facility] [address] [id number] [place] [address]- 0624 16 Sep, 2013 [facility] [place] [facility] [address] [id number] [place] [address]- 4755 15 Sep, 2013 [facility] [place] [facility] [address] [id number] [place] [address]- 6325 15 Sep, 2013 [facility] [place] [facility] [address] [id number] [place] [address]- 1253 12 Sep, 2013 [facility] [place] [facility] [address] [id number] [place] [address]- 2138 12 Sep, 2013 [facility] [place] [facility] [address] [id number] [place] [address]- 0838 11 Sep, 2013 [facility] [place] [facility] [address] [id number] [place] [address]- 2544 11 Sep, 2013 [facility] [place] [facility] [address] [id number] [place] [address]- 2744 11 Sep, 2013 [facility] [place] [facility] [address] [id number] [place] [address]- 2549 11 Sep, 2013 [facility] [place] [facility] [address] [id number] [place] [address]- 7353 09 Sep, 2013 [facility] [place] [facility] [address] [id number] [place] [address]- 5447 Jun, [facility] [place] [facility] [address] [id number] [place] [address]- 2564 Jun, [facility] [place] [facility] [address] [id number] [place] [address]- 7464 Jun, [facility] [place] [facility] [address] [id number] [place] [address]- 2123 May, [facility] [place] [facility] [address] [id number] [place] [address]- 9247 May, [facility] [place] [facility] [address] [id number] [place] [address]- 4066 May, [facility] [place] [facility] [address] [id number] [place] [address]- 2295 May, [facility] [place] [facility] [address] [id number] [place] [address]- 4095 May, [facility] [place] [facility] [address] [id number] [place] [address]- 2383 May, [facility] [place] [facility] [address] [id number] [place] [address]- 4454 May, [facility] [place] [facility] [address] [id number] [place] [address]- 8731 May, [facility] [place] [facility] [address] [id number] [place] [address]- 0174 May, [facility] [place] [facility] [address] [id number] [place] [address]- 4198 May, [facility] [place] [facility] [address] [id number] [place] [address]- 8052 May, [facility] [place] [facility] [address] [id number] [place] [address]- 8061 May, [facility] [place] [facility] [address] [id number] [place] [address]- 7707 May, [facility] [place] [facility] [address] [id number] [place] [address]- 5281 Apr, [facility] [place] [facility] [address] [id number] [place] [address]- 0154 Apr, [facility] [place] [facility] [address] [id number] [place] [address]- 1323 Apr, [facility] [place] [facility] [address] [id number] [place] [address]- 5183 Apr, [facility] [place] [facility] [address] [id number] [place] [address]- 7826 Apr, [facility] [place] [facility] [address] [id number] [place] [address]- 5823 Mar, [facility] [place] [facility] [address] [id number] [place] [address]- 8363 Mar, [facility] [place] [facility] [address] [id number] [place] [address]- 3538 Mar, [facility] [place] [facility] [address] [id number] [place] [address]- 0740 February, [facility] [place] [facility] [address] [id number] [place] [address]- 0819 February, [facility] [place] [facility] [address] [id number] [place] [address]- 8593 February, [facility] [place] [facility] [address] [id number] [place] [address]- 2260 February, [facility] [place] [facility] [address] [id number] [place] [address]- 7881 February, [facility] [place] [facility] [address] [id number] [place] [address]- 1203 February, [facility] [place] [facility] [address] [id number] [place] [address]- 4250 February, [facility] [place] [facility] [address] [id number] [place] [address]- 5672 February, [facility] [place] [facility] [address] [id number] [place] [address]- 1378 February, [facility] [place] [facility] [address] [id number] [place] [address]- 0854 Jan, [facility] [place] [facility] [address] [id number] [place] [address]- 7875 Jan, [facility] [place] [facility] [address] [id number] [place] [address]- 5018 Jan, [facility] [place] [facility] [address] [id number] [place] [address]- 2625 Jan, [facility] [place] [facility] [address] [id number] [place] [address]- 6637 Jan, [facility] [place] [facility] [address] [id number] [place] [address]- 8088 Dec, [facility] [place] [facility] [address] [id number] [place] [address]- 7401 Dec, [facility] [place] [facility] [address] [id number] [place] [address]- 4043 Dec, [facility] [place] [facility] [address] [facility] [id number] [place] [address]- 7409 Dec, [facility] [place] [facility] [address] [id number] [place] [address]- 3278 Dec, [facility] [place] [facility] [address] [id number] [place] [address]- 8624 Nov, [facility] [place] [facility] [address] [id number] [place] [address]- 4322 Nov, [facility] [place] [facility] [address] [id number] [place] [address]- 2353 Nov, [facility] [place] [facility] [address] [id number] [place] [address]- 3083 Nov, [facility] [place] [facility] [address] [id number] [place] [address]- 2496 Oct, [facility] [place] [facility] [address] [id number] [place] [address]- 6158 Oct, [facility] [place] [facility] [address] [id number] [place] [address]- 9800 Oct, [facility] [place] [facility] [address] [id number] [place] [address]- 8879 Oct, [facility] [place] [facility] [address] [id number] [place] [address]- 1109 Oct, [facility] [place] [facility] [address] [id number] [place] [address]- 8356 Oct, [facility] [place] [facility] [address] [id number] [place] [address]- 7041 Oct, [facility] [place] [facility] [address] [id number] [place] [address]- 2203 Oct, [facility] [place] [facility] [address] [id number] [place] [address]- 6266 Oct, [facility] [place] [facility] [address] [id number] [place] [address]- 8972 Oct, [facility] [place] [facility] [address] [id number] [place] [address]- 4295 Aug, [facility] [place] [facility] [address] [id number] [place] [address]- 5488 Aug, [facility] [place] [facility] [address] [id number] [place] [address]- 2395 Jul, [facility] [place] [facility] [address] [id number] [place] [address]- 8168 Jul, [facility] [place] [facility] [address] [id number] [place] [address]- 5799 Jul, [facility] [place] [facility] [address] [id number] [place] [address]- 6590 09 Jul, 2013 [facility] [address] [id number] [place] [address]- 0681 Jul, [facility] [place] [facility] [address] [id number] [place] [address]- 2793 Jul, [facility] [address] [id number] [place] [address]- 2690 Apr, [facility] [place] [facility] [address] [id number] [place] [address]- 7720 Dec, [facility] [place] [facility] [address] [id number] [place] [address]- 1541 Nov, [facility] [place] [facility] [address] [id number] [place] [address]- 6284 Nov, [facility] [address] [facility] [id number] [place] [address]- 0082 Nov, [facility] [place] [facility] [address] [facility] [id number] [place] [address]- 7296 Oct, [facility] [place] [facility] [address] [facility] [id number] [place] [address]- 0436 Sep, [facility] [place] [facility] [address] [facility] [id number] [place] [address]- 9814 Sep, [facility] [place] [facility] [address] [facility] [id number] [place] [address]- 2182 Sep, [facility] [place] [facility] [address] [facility] [id number] [place] [address]- 4879 Sep, [facility] [place] [facility] [address] [id number] [place] [address]- 3774 Aug, [facility] [place] [facility] [address] [facility] [id number] [place] [address]- 3572 Aug, [facility] [place] [facility] [address] [facility] [id number] [place] [address]- 4608 Jul, [facility] [place] [facility] [address] [id number] [place] [address]- 1802 Jul, [facility] [place] [facility] [address] [id number] [place] [address]- 9822 28 Jun, 2012 [facility] [place] [facility] [address] [id number] [place] [address]- 9455 26 Jun, 2012 [facility] [place] [facility] [address] [id number] [place] [address]- 2558 24 Jun, 2012 [facility] [place] [facility] [address] [id number] [place] [address]- 7044 24 Jun, 2012 [facility] [place] [facility] [address] [id number] [place] [address]- 70[address] Jun, [facility] [place] [facility] [address] [id number] [place] [address] 31 Apr, 2012 [facility] [place] [facility] [address] [id number] [place] [address] 30 Apr, 2012 [facility] [place] [facility] [address] [id number] [place] [address] Apr, [facility] [place] [facility] [address] [id number] [place] [address] Mar, [facility] [place] [facility] [address] [id number] [place] [address] Mar, [facility] [place] [facility] [address] [id number] [place] [address] Mar, [facility] [place] [facility] [address] [id number] [place] [address] February, [facility] [place] [facility] [address] [id number] [place] [address] Jan, [facility] [place] [facility] [address] [id number] [place] [address] Dec, [facility] [place] [facility] [address] [id number] [place] [address] Dec, [facility] [address] [id number] [place] [address] Dec, [facility] [place] [facility] [address] [id number] [place] [address] Dec, [facility] [place] [facility] [address] [id number] [place] [address] Dec, [facility] [place] [facility] [address] [id number] [place] [address] 14 Nov, 2011 [facility] [place] [facility] [address] [id number] [place] [address] Nov, [facility] [place] [facility] [address] [id number] [place] [address] Oct, [facility] [place] [facility] [address] [id number] [place] [address] Oct, [facility] [place] [facility] [address] [id number] [place] [address] Oct, [facility] [place] [facility] [address] [id number] [place] [address] Sep, [facility] [place] [facility] [address] [id number] [place] [address] Aug, [facility] [place] [facility] [address] [id number] [place] [address] Aug, [facility] [place] [facility] [address] [id number] [place] [address] 28 Jul, 2011 [facility] [place] [facility] [address] [id number] [place] [address] 24 Jul, 2011 [facility] [place] [facility] [address] [id number] [place] [address] 19 Jul, 2011 [facility] [place] [facility] [address] [id number] [place] [address] 13 Jan, 2011 [facility] [place] [facility] [address] [id number] [place] [address] 29 Sep, 2010 [facility] [address] [id number] [place] [address] 27 Sep, 2010 [facility] [place] [facility] [address] [id number] [place] [address] Sep, [facility] [address] [id number] [place] [address] Sep, [facility] [address] [id number] [place] [address] 06 Sep, 2010 [facility] [address] [id number] [place] [address] Aug, [facility] [address] [id number] [place] [address] 16 Aug, 2010 [facility] [address] [id number] [place] [address] Aug, [facility] [address] [id number] [place] [address] Jul, [facility] [address] [id number] [place] [address] Jul, [facility] [address] [facility] [id number] [place] [address] Jul, [facility] [address] [id number] [place] [address] May, [facility] [address] [id number] [place] [address] 13 Apr, 2010 [facility] [place] [facility] [address] [id number] [place] [address] 18 Dec, 2009 [facility] [place] [facility] [address] [id number] [place] [address]46 17 Sep, 2009 [facility] [place] [facility] [address] [id number] [place] [address] Sep, [facility] [address] [facility] [id number] [place] [address] Aug, [facility] [address] [facility] [id number] [place] [address] Aug, [facility] [address] [facility] [id number] [place] [address] Jul, [facility] [address] [facility] [id number] [place] [address] Mar, IMMUNIZATIONS Vaccine Route Administration Date Status DEPO PROVERA (150 MG/ML) IM Intramuscular May 30, 2018 Administered SOCIAL HISTORY Never Assessed REASON FOR VISIT Depo Provera injection--tcuppettRN PLAN OF CARE Activity Details Follow Up 3 Months Reason: VITAL SIGNS MEDICATIONS Unknown Medications RESULTS Name Result Date Reference Range TEST, URINE (IN HOUSE) 2018-05-30 RESULTS Negative Lot # [id number] Control + Exp date 11/20/19 PROCEDURES Procedure Date Ordered Result Body Site URINE TEST May 30, 2018 DEPO PROVERA (150 MG/ML) May 30, 2018 THER/PROPH/DIAG INJ, SC/IM May 30, 2018 INSTRUCTIONS MEDICATIONS ADMINISTERED No Known Medications MEDICAL [...] Hospitalization History Surgery(s) only Hospitalization History [facility] and transferred to [facility]-sepsis/ARF 2016
--- OUTSIDE RECORDS SUMMARY | 2018-10-08 19:43 | XMS REPORT ---
Author Author JENNY WOLF [facility] Address [address] [place] [address] Care Team Providers Care Relaster Name Role Phone JENNY WOLF Unavailable PROBLEMS Type Condition ICD9-CM Code HEE67-CG Code Onset Dates Condition Status SNOMED Code Problem HSV (herpes simplex virus) infection B00.9 Active 72539245 Problem Edema of both feet R60.0 Active 964435763 Problem Tobacco abuse Z72.0 Active 87629883 Problem Generalized anxiety disorder F41.1 Active 20434000 Problem Chronic pain disorder G89.4 Active 037555912 Problem Chronic migraine G43.709 Active 10036570 Problem Mixed hyperlipidemia E78.2 Active 852632104 Problem Type 2 diabetes mellitus with diabetic neuropathy, unspecified E11.40 Active 81307441 Problem 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 226226748 Problem Anxiety F41.9 Active 55034031 Problem Radiculopathy of lumbar region M54.16 Active 579358018 Problem Bulging lumbar disc M51.26 Active 954139723 Problem Essential hypertension I10 Active 70818738 Problem Asthma J45.909 Active 799972168 Problem Chronic pain G89.29 Active 20632528 Problem Spinal stenosis, lumbar region M48.06 Active 03986932 Problem Gastroesophageal reflux disease without esophagitis K21.9 Active [id number] ALLERGIES No Information ENCOUNTERS Encounter Location Date Diagnosis [facility] [address] [facility] [id number], [place] [address] Jun, [facility] [address] [address] Jun, [facility] [address] [id number], [place] [address] 03[address] Jun, [facility] [id number] [place] [address] 98325- 3705 06 Jun, 2018 Asthma J45.909 [facility] [place] [id number] [place] [address] 09631- 4442 04 Jun, 2018 Type 2 diabetes mellitus with diabetic neuropathy, unspecified E11.40 ; Chronic pain disorder G89.4 and Generalized anxiety disorder F41.1 [facility] [address] 89989- 5581 May, Chronic pain G89.29 and Anxiety F41.9 [facility] [id number] [place] [address] 56988- 7077 May, [facility] [address] 35715- 1285 May, Encounter for Depo-Provera contraception Z30.42 [facility] [place] [address] 97037- 3898 May, [facility] [address] 87486- 2865 Apr, Chronic pain G89.29 [facility] [address] 68981- 6375 Apr, Chronic pain G89.29 and Anxiety F41.9 [facility] [place] [id number] [place] [address] 34768- 0636 Mar, HSV (herpes simplex virus) infection B00.9 ; Anxiety F41.9 and Chronic pain G89.29 [facility] [id number] [place] [address] 64849- 5310 Mar, [facility] [place] [id number] [place] [address] 35661- 3611 Mar, Chronic pain G89.29 [facility] [place] [id number] [place] [address] 41904- 9418 February, Chronic pain G89.29 [facility] [place] [address] 16281- 8460 Jan, Chronic pain G89.29 [facility] [address] 26882- 8785 Jan, 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 [facility] [address] 76314- 3773 Jan, Encounter for Depo-Provera contraception Z30.42 [facility] [address] 75604- 0109 Jan, [facility] [address] 23207- 8340 Jan, Chronic pain G89.29 and Anxiety F41.9 [facility] [address] 73539- 1605 Jan, [facility] [place] [address] 86258- 5070 Dec, [facility] [address] 55905- 6154 Dec, Gastroesophageal reflux disease without esophagitis K21.9 and Anxiety F41.9 [facility] [address] 88766- 4974 Dec, Essential hypertension I10 ; Mixed hyperlipidemia E78.2 ; Type 2 diabetes mellitus with diabetic neuropathy, unspecified E11.40 ; 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 ; Chronic pain G89.29 ; HSV (herpes simplex virus) infection B00.9 ; Anxiety F41.9 and Gastroesophageal reflux disease without esophagitis K21.9 [facility] [place] [id number] [place] [address] 12281- 7227 Dec, Chronic pain G89.29 and Chronic migraine G43.709 [facility] [place] [address] 89335- 4761 Nov, [facility] [address] 87118- 8420 Nov, Essential hypertension I10 and Chronic pain G89.29 [facility] [id number] [place] [address] 78106- 6741 Nov, Chronic pain G89.29 ; Essential hypertension I10 and Type 2 diabetes mellitus without complication E11.9 [facility] [place] [id number] [place] [address] 97925- 1170 Oct, Chronic pain G89.29 [facility] [place] [address] 30411- 1643 Oct, [facility] [address] 77246- 3237 Sep, Type 2 diabetes mellitus without complication E11.9 ; Essential hypertension I10 ; penitentiary (current) use of insulin Z79.4 ; Chronic migraine G43.709 ; Chronic pain G89.29 and Acute non-recurrent maxillary sinusitis J01.00 [facility] [address] 35769- 4682 Sep, Encounter for Depo-Provera contraception Z30.42 [facility] [address] 65786- 2517 Sep, Chronic pain G89.29 and Radiculopathy of lumbar region M54.16 [facility] [place] [id number] [place] [address] 82714- 9970 Sep, [facility] [place] [id number] [place] [address] 53368- 0625 Sep, [facility] [place] [id number] [place] [address] 61090- 9481 Aug, Type 2 diabetes mellitus without complication E11.9 [facility] [id number] [place] [address] 21365- 2955 Aug, [facility] [id number] [place] [address] 77573- 3750 Aug, Radiculopathy of lumbar region M54.16 and Chronic pain G89.29 [facility] [address] [facility] [id number] [place] [address] 2546 Aug, Type 2 diabetes mellitus without complication E11.9 [facility] [address] [facility] [id number], [place] [address] 2546 Aug, Type 2 diabetes mellitus without complication E11.9 [facility] [address] [facility] [id number], [place] [address] 2546 Jul, Type 2 diabetes mellitus without complication E11.9 [facility] [address] [facility] [id number] [place] [address]- 5436 Jul, [facility] [address] [facility] [id number] [place] [address] 92122- 6466 Jul, Chronic pain G89.29 [facility] [address] [facility] [id number], [place] [address]- 5536 Jul, [facility] [address] [facility] [id number], [place] [address] 2546 Jul, [facility] [address] [facility] [id number] [place] [address] 16978- 2174 Jul, Type 2 diabetes mellitus without complication E11.9 [facility] [address] [facility] [id number], [place] [address] 2542 Jul, [facility] [address] [facility] [id number], [place] [address]- 2546 Jul, Type 2 diabetes mellitus without complication E11.9 [facility] [address] [facility] [id number], [place] [address] 2546 Jul, [facility] [address] [facility] [id number], [place] [address] 2546 Jul, [facility] [address] [facility] [id number], [place] [address]- 2546 Jul, [facility] [address] [facility] [id number], [place] [address]- 2098 Jun, Type 2 diabetes mellitus without complication E11.9 [facility] [id number] [place] [address] 19533- 4294 Jun, Chronic migraine G43.709 ; Type 2 diabetes mellitus without complication E11.9 ; Calculus of right kidney N20.0 ; Yeast dermatitis B37.2 and HSV (herpes simplex virus) infection B00.9 [facility] [address] 18655- 8827 Jun, Type 2 diabetes mellitus without complication E11.9 [facility] [id number] [place] [address] 95035- 9373 Jun, [place] [address] 92154- 3317 Jun, Radiculopathy of lumbar region M54.16 and Chronic pain G89.29 [facility] [address] 76477- 1019 Jun, Encounter for Depo-Provera contraception Z30.42 [facility] [id number] [place] [address] 10956- 9158 Jun, Type 2 diabetes mellitus without complication E11.9 [facility] [id number] [place] [address] 33397- 1260 Jun, [facility] [id number] [place] [address] 82035 -8727 May, Acute nasopharyngitis (common cold) J00 [facility] [id number] [place] [address] 07262- 9852 May, Chronic pain G89.29 [facility] [id number] [place] [address] 25454- 2256 May, Headache following lumbar puncture G97.1 [facility] [id number] [place] [address] 03478- 5459 May, Radiculopathy of lumbar region M54.16 [facility] [id number] [place] [address] 10069- 4058 Apr, [place] [address] 41506- 1974 Apr, Type 2 diabetes mellitus without complication E11.9 ; Chronic pain G89.29 ; Essential hypertension I10 ; Radiculopathy of lumbar region M54.16 ; Spinal stenosis, lumbar region M48.06 ; Gastroesophageal reflux disease without esophagitis K21.9 ; HSV (herpes simplex virus) infection B00.9 ; Mixed hyperlipidemia E78.2 ; Anxiety F41.9 and Asthma J45.909 [place] [address] 00054- 9915 Apr, Encounter for Depo-Provera contraception Z30.[address] 66070- 6452 Apr, Chronic pain G89.29 and Anxiety F41.9 [place] [id number] [place] [address] 61209- 1783 Mar, [facility] [address] 02068- 7810 Mar, [facility] [id number] [place] [address] 77890- 6912 Mar, Mixed hyperlipidemia E78.2 [facility] [id number] [place] [address] 96312- 0519 Mar, Type 2 diabetes mellitus without complication E11.9 ; Chronic pain G89.29 ; Essential hypertension I10 ; Radiculopathy of lumbar region M54.16 ; Spinal stenosis, lumbar region M48.06 ; Gastroesophageal reflux disease without esophagitis K21.9 ; HSV (herpes simplex virus) infection B00.9 ; Mixed hyperlipidemia E78.2 and Anxiety F41.9 [facility] [id number] [place] [address] 59388- 1753 Mar, [place] [address] [place] [address]- 2927 Mar, [facility] [address], [place] [address]- 6862 Mar, [facility] [address], [place] [address]- 8694 February, Chronic pain G89.29 [facility] [id number] [place] [address] 74813- 0768 February, [facility] [id number] [place] [address] 49857- 4187 Jan, Chronic pain G89.29 [facility] [id number] [place] [address] 06571- 1903 Jan, Type 2 diabetes mellitus without complication E11.9 [facility] [id number] [place] [address] 26345- 9744 Jan, [facility] [id number] [place] [address] 84255- 2133 Jan, [facility] [id number] [place] [address] 05155- 5628 Jan, [facility] [address], [place] [address]- 5641 Jan, Type 2 diabetes mellitus without complication [...] J01.00 and Encounter for Depo-Provera contraception Z30.42 [facility] [address], [place] [address]- 3358 Dec, Chronic pain G89.29 [facility] [id number], [place] [address]- 1139 17 Dec, 2016 Abnormal ankle brachial index (BERNARDINO) R68.89 [facility] [id number] [place] [address] 24650- 4255 Dec, [place] [id number] [place] [address] 81016- 9001 Dec, Routine gynecological examination Z01.419 ; Chronic [...] virus) infection B00.9 and Allergic rhinitis 477.9 [facility] [id number] [place] [address] 36024- 5598 Nov, Chronic pain G89.29 [facility] [id number] [place] [address] 99006- 9016 02 Nov, 2016 Chronic pain G89.29 ; [...] mucoid otitis media of both ears H65.113 [facility] [id number] [place] [address] 11899- 4620 Oct, [facility] [id number] [place] [address] 92200- 7956 Oct, Chronic pain G89.29 [facility] [id number] [place] [address] 82541- 4057 Oct, Chronic pain G89.29 [facility] [id number] [place] [address] 34523- 7070 Sep, Chronic pain G89.29 ; Type 2 diabetes mellitus without complication E11.9 ; Essential hypertension I10 ; Radiculopathy of lumbar region M54.16 ; Spinal stenosis, lumbar region M48.06 ; Gastroesophageal reflux disease without esophagitis K21.9 ; Encounter for surveillance of injectable contraceptive Z30.42 ; Bilateral cold feet R20.9 ; Pain of left foot M79.672 and Pain in right foot M79.671 [facility] [id number] [place] [address] 40811- 0813 Sep, [place] [address] 88785- 3284 17 Aug, 2016 [place] [id number] [place] [address] 58041- 4926 Aug, [place] [id number] [place] [address] 01034- 9773 Aug, Chronic pain G89.29 ; Type 2 diabetes mellitus without complication E11.9 ; Essential hypertension I10 ; Rash and nonspecific skin eruption R21 and Upper respiratory infection, acute J06.9 [facility] [id number] [place] [address] 60242- 5673 Aug, [facility] [id number] [place] [address] 61502- 5200 Aug, [facility] [id number] [place] [address] 77172- 0738 Jul, [facility] [id number] [place] [address] 09042- 9035 Jul, Dysuria R30.0 ; Encounter for Depo-Provera contraception Z30.42 ; Herpes simplex B00.9 ; Nausea & vomiting R11.2 and Asthma J45.909 [facility] [id number] [place] [address] 97394- 2063 Jun, Dysuria R30.0 [facility] [place] [id number], [place] [address]- 5328 19 Jun, 2016 Dysuria R30.0 [facility] [id number] [place] [address] 51745- 1872 15 Jun, 2016 [facility] [id number] [place] [address] 35042- 9058 13 Jun, 2016 [facility] [id number] [place] [address] 48232- 8309 May, [facility] [id number] [place] [address] 05076- 4742 May, [facility] [id number] [place] [address] 78146- 2956 May, Chronic pain G89.29 ; Essential hypertension I10 ; Type 2 diabetes mellitus without complication E11.9 ; Edema of both feet R60.0 and Rash and nonspecific skin eruption R21 [facility] [place] [id number] [place] [address] 08339- 2545 Apr, [facility] [id number] [place] [address] 55904- 1410 Mar, Carpal tunnel syndrome, left upper limb G56.02 and Carpal tunnel syndrome, right upper limb G56.01 [facility] [id number] [place] [address] 52153- 3292 Mar, [facility] [id number] [place] [address] 31084- 5390 Mar, Encounter for Depo-Provera contraception Z30.42 [facility] [address] [id number], [place] [address]- 9598 February, [place] [id number] [place] [address] 66850- 7390 February, [facility] [id number] [place] [address] 82573- 4740 February, Chronic pain G89.29 ; Essential hypertension I10 ; Type 2 diabetes mellitus without complication E11.9 ; HSV (herpes simplex virus) infection B00.9 ; Anxiety F41.9 ; Hypersomnia G47.10 ; Tobacco abuse Z72.0 ; Hand pain, left M79.642 ; Hand pain, right M79.641 ; Left foot pain M79.672 and Heart palpitations R00.2 [facility] [address] 30620- 6369 Jan, [place] [address] 52866- 7910 Jan, [place] [address] 56139- 7290 Jan, [place] [address] 35309- 5700 Jan, [place] [address] 65311- 8980 Jan, Upper respiratory infection J06.9 and Type 2 diabetes mellitus without complication E11.9 [facility] [address] 11112- 3599 Dec, [place] [address] 12758- 3057 Dec, Chronic pain G89.29 ; Essential hypertension I10 ; Type 2 diabetes mellitus without complication E11.9 ; HSV (herpes simplex virus) infection B00.9 ; Anxiety F41.9 ; Upper respiratory infection J06.9 ; Hypersomnia G47.10 and Tobacco abuse Z72.0 [facility] [address] 81375- 7492 Dec, Encounter for Depo-Provera contraception Z30.42 [facility] [address] 02891- 0772 Dec, [place] [address] 46819- 2218 Dec, Chronic pain G89.29 ; Sinusitis J32.9 ; Snoring R06.83 and Daytime hypersomnia G47.19 [facility] [id number] [place] [address] 88041- 2449 Nov, HSV (herpes simplex virus) infection B00.9 ; Encounter for Papanicolaou smear for cervical cancer screening Z12.4 ; Screening for STD sexually transmitted disease Z11.3 and Bartholin's gland cyst N75.0 [place] [address] 49373- 2261 Nov, [place] [address] 37748- 1532 Nov, [place] [address] 02992- 4283 Nov, Essential hypertension I10 ; Type 2 diabetes mellitus without complication E11.9 ; HSV (herpes simplex virus) infection B00.9 ; Spinal stenosis, lumbar region M48.06 and Vaginal yeast infection B37.3 [facility] [address] 10978- 9264 Nov, [place] [address] 83919- 9627 Nov, [place] [address] 81630- 2680 Oct, [place] [address] 97836- 1274 Oct, HSV (herpes simplex virus) infection B00.9 ; Yeast infection B37.9 ; Change in bowel habit R19.4 ; Nausea & vomiting R11.2 and Gastroesophageal reflux disease without esophagitis K21.9 [facility] [address] 44582- 8307 Oct, [place] [address] 73426- 9207 Oct, Type 2 diabetes mellitus without complication E11.9 ; Essential hypertension I10 and Acute maxillary sinusitis, recurrence not specified J01.00 [facility] [place] [id number] [place] [address] 76243- 7664 Oct, [place] [address] 22001- 1825 Oct, [place] [address] 73976- 5228 Oct, Exposure to head lice Z20.7 ; Blood glucose abnormal R73.09 ; Boil of buttock L02.32 and Type 2 diabetes mellitus without complication E11.[address] 17559- 8493 Oct, [address] 10872- 5347 Sep, [address] 82429- 3933 Sep, [address] 17846- 4925 Aug, Encounter for Depo-Provera contraception Z30.[address] 72668- 1894 Aug, Anxiety F41.9 ; Spinal stenosis, lumbar region M48.06 ; Radiculopathy of lumbar region M54.16 ; Asthma J45.909 ; GERD (gastroesophageal reflux disease) K21.9 ; Essential hypertension I10 and Long-term use of high- risk medication Z79.8[address] [place] [id number] [place] [address] 52580- 2567 Jul, [address] 95257- 0800 Jun, Hemorrhoid 455.[address] 57724- 5996 08 Jun, [address] 26816- 5698 Jun, Anxiety 300.00 ; Asthma 493.90 ; Hyperhidrosis 705.21 ; Chest discomfort 786.59 and Upper respiratory infection 465.[address] 35253- 0495 May, Encounter for Depo-Provera contraception V25.[address] 18852- 1480 May, [address] 78353- 8109 May, [address] 38802- 1208 May, Spinal stenosis of lumbar region with radiculopathy 724.02 ; Bulging of intervertebral disc between L4 and L5 722.10 ; GERD ( gastroesophageal reflux disease) 530.81 ; Chronic pain 338.29 ; Declining mobility 799.89 and Epigastric pain 789.[address] 31965- 3312 Apr, [address] 87532- 1487 Apr, Nausea 787.02 and Heart burn 787.[address] 52830- 3095 Mar, Lumbago 724.2 ; Vitamin D deficiency 268.9 ; Anxiety 300.00 ; Allergic rhinitis 477.9 and Contraceptive surveillance V25.[address] 85172- 3326 February, 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 ; Chronic pain 338.29 and Vaginal discharge 623.[address] 45282- 4222 February, [address] 16420- 8692 February, [facility] [place] [facility] [address] [id number] [place] [address]- 9682 14 Jan, 2015 [facility] [place] [facility] [address] [id number] [place] [address]- 8058 Jan, [facility] [place] [facility] [address] [id number] [place] [address]- 4785 Dec, [facility] [place] [facility] [address] [id number] [place] [address]- 1806 Dec, [facility] [place] [facility] [address] [id number] [place] [address]- 0395 Dec, [facility] [place] [facility] [address] [id number] [place] [address]- 7760 Dec, [facility] [place] [facility] [address] [id number] [place] [address]- 9344 Dec, [facility] [place] [facility] [address] [id number] [place] [address]- 5682 Dec, [facility] [place] [facility] [address] [id number] [place] [address]- 8921 Dec, [facility] [place] [facility] [address] [id number] [place] [address] Dec, [facility] [place] [facility] [address] [id number] [place] [address] Dec, [facility] [place] [facility] [address] [id number] [place] [address] Dec, [facility] [place] [facility] [address] [id number] [place] [address] Dec, [facility] [place] [facility] [address] [id number] [place] [address] Dec, [facility] [place] [facility] [address] [id number] [place] [address] Nov, [facility] [place] [facility] [address] [id number] [place] [address] 27 Nov, 2014 [facility] [place] [facility] [address] [id number] [place] [address] 24 Nov, 2014 [facility] [place] [facility] [address] [facility] [id number] [place] [address] 24 Nov, 2014 [facility] [place] [facility] [address] [facility] [id number] [place] [address] 23 Nov, 2014 [facility] [place] [facility] [address] [id number] [place] [address] 23 Nov, 2014 [facility] [place] [facility] [address] [facility] [id number] [place] [address] 16 Nov, 2014 [facility] [place] [facility] [address] [facility] [id number] [place] [address] 16 Nov, 2014 [facility] [place] [facility] [address] [id number] [address] 13 Nov, 2014 [facility] [place] [facility] [address] [facility] [id number] [place] [address] 13 Nov, 2014 [facility] [place] [facility] [address] [facility] [id number] [place] [address] 13 Nov, 2014 [facility] [place] [facility] [address] [id number] [address] 13 Nov, 2014 [facility] [place] [facility] [address] [facility] [id number], [place] [address] 13 Nov, 2014 [facility] [place] [facility] [address] [facility] [id number] [place] [address] 8967 13 Nov, 2014 [facility] [place] [facility] [address] [facility] [id number] [place] [address]- 2818 13 Nov, 2014 [facility] [place] [facility] [address] [facility] [id number], [place] [address] 13 Nov, 2014 [facility] [place] [facility] [address] [facility] [id number], [place] [address] Nov, 2014 [facility] [place] [facility] [address] [id number] [place] [address]- 5195 Nov, 2014 [facility] [place] [facility] [address] [id number] [place] [address] 1913 Nov, 2014 [facility] [place] [facility] [address] [id number] [place] [address]- 4146 Nov, 2014 [facility] [place] [facility] [address] [id number] [place] [address]- 7674 Nov, 2014 [facility] [place] [facility] [address] [id number] [place] [address]- 2311 Nov, 2014 [facility] [place] [facility] [address] [id number] [place] [address]- 3737 Nov, 2014 [facility] [place] [facility] [address] [facility] [id number] [place] [address]- 4616 Oct, [facility] [place] [facility] [address] [id number] [place] [address]- 1842 Oct, [facility] [place] [facility] [address] [id number] [place] [address]- 1439 Oct, [facility] [place] [facility] [address] [facility] [id number] [place] [address]- 2797 Oct, [facility] [place] [facility] [address] [id number] [place] [address]- 2925 Oct, [facility] [place] [facility] [address] [id number] [place] [address]- 6736 Oct, [facility] [place] [facility] [address] [id number] [place] [address]- 2297 Oct, [facility] [place] [facility] [address] [facility] [id number] [place] [address]- 0492 Oct, [facility] [place] [facility] [address] [id number] [place] [address]- 0672 Oct, [facility] [place] [facility] [address] [id number] [place] [address]- 6676 Oct, [facility] [place] [facility] [address] [id number] [place] [address]- 8410 Oct, [facility] [place] [facility] [address] [id number] [place] [address]- 6988 Oct, [facility] [place] [facility] [address] [id number] [place] [address]- 3623 Oct, [facility] [address] [id number] [place] [address]- 8335 Oct, [facility] [place] [facility] [address] [id number] [place] [address]- 4872 Oct, [facility] [place] [facility] [address] [id number] [place] [address]- 4289 Oct, [facility] [place] [facility] [address] [id number] [place] [address]- 6948 Oct, [facility] [place] [facility] [address] [id number] [place] [address]- 7433 Oct, [facility] [place] [facility] [address] [id number] [place] [address]- 4951 Oct, [facility] [place] [facility] [address] [id number] [place] [address]- 9066 Oct, [facility] [place] [facility] [address] [id number] [place] [address]- 9764 Oct, [facility] [place] [facility] [address] [id number] [place] [address]- 1787 Sep, [facility] [place] [facility] [address] [id number] [place] [address]- 4743 Sep, [facility] [place] [facility] [address] [id number] [place] [address]- 8785 Sep, [facility] [place] [facility] [address] [id number] [place] [address]- 0912 18 Sep, 2014 [facility] [place] [facility] [address] [id number] [place] [address]- 9935 17 Sep, 2014 [facility] [place] [facility] [address] [id number] [place] 17 Sep, 2014 [facility] [place] [facility] [address] [id number] [place] [address]- 9736 15 Sep, 2014 [facility] [place] [facility] [address] [id number] [place] [address]- 4197 15 Sep, 2014 [facility] [place] [facility] [address] [id number] [place] [address]- 0379 12 Sep, 2014 [facility] [place] [facility] [address] [id number] [place] [address]- 3714 12 Sep, 2014 [facility] [place] [facility] [address] [id number] [place] [address]- 4256 11 Sep, 2014 [facility] [place] [facility] [address] [id number] [place] [address]- 8776 11 Sep, 2014 [facility] [place] [facility] [address] [id number] [place] [address]- 3198 11 Sep, 2014 [facility] [place] [facility] [address] [id number] [place] [address]- 9282 11 Sep, 2014 [facility] [place] [facility] [address] [id number] [place] [address]- 7247 11 Sep, 2014 [facility] [place] [facility] [address] [id number] [place] [address]- 6673 11 Sep, 2014 [facility] [place] [facility] [address] [id number] [place] [address]- 4429 10 Sep, 2014 [facility] [place] [facility] [address] [id number] [place] [address]- 3206 10 Sep, 2014 [facility] [place] [facility] [address] [id number] [place] [address]- 0375 08 Sep, 2014 [facility] [place] [facility] [address] [id number] [place] [address]- 1311 Sep, [facility] [place] [facility] [address] [id number] [place] [address]- 1005 Aug, [facility] [place] [facility] [address] [id number] [place] [address]- 5415 Aug, [facility] [place] [facility] [address] [id number] [place] [address]- 5010 Aug, [facility] [place] [facility] [address] [id number] [place] [address]- 0819 Aug, [facility] [place] [facility] [address] [id number] [place] [address]- 9179 Aug, [facility] [place] [facility] [address] [id number] [place] [address]- 1487 Aug, [facility] [place] [facility] [address] [id number] [place] [address]- 5157 Aug, [facility] [place] [facility] [address] [id number] [place] [address]- 5156 Aug, [facility] [place] [facility] [address] [id number] [place] [address]- 2467 Aug, [facility] [place] [facility] [address] [id number] [place] [address]- 9856 Jul, [facility] [place] [facility] [address] [id number] [place] [address]- 4836 Jul, [facility] [place] [facility] [address] [id number] [place] [address]- 3007 Jul, [facility] [place] [facility] [address] [id number] [place] [address]- 5777 Jul, [facility] [place] [facility] [address] [id number] [place] [address]- 6246 Jul, [facility] [place] [facility] [address] [id number] [place] [address]- 8358 Jul, [facility] [place] [facility] [address] [id number] [place] [address]- 9248 Jul, [facility] [place] [facility] [address] [id number] [place] [address]- 9236 Jul, [facility] [place] [facility] [address] [id number] [place] [address]- 9716 Jul, [facility] [place] [facility] [address] [id number] [place] [address]- 1479 Jul, [facility] [place] [facility] [address] [id number] [place] [address]- 6205 Jul, [facility] [place] [facility] [address] [id number] [place] [address]- 7420 Jul, [facility] [place] [facility] [address] [id number] [place] [address]- 5314 Jul, [facility] [place] [facility] [address] [id number] [place] [address]- 0000 Jul, [facility] [place] [facility] [address] [id number] [place] [address]- 6067 30 Jun, 2013 [facility] [place] [facility] [address] [id number], [place] [address]- 5518 30 Jun, 2013 [facility] [place] [facility] [address] [id number], [place] [address]- 5869 25 Jun, 2013 [facility] [place] [facility] [address] [id number], [place] [address]- 1934 25 Jun, 2013 [facility] [place] [facility] [address] [id number] [place] [address]- 2541 25 Jun, 2013 [facility] [place] [facility] [address] [id number] [place] [address]- 6914 25 Jun, 2013 [facility] [place] [facility] [address] [id number], [place] [address]- 0249 24 Jun, 2013 [facility] [place] [facility] [address] [id number], [place] [address]- 7997 24 Sep, 2013 [facility] [place] [facility] [address] [id number] [place] [address] 2546 22 Sep, 2013 [facility] [place] [facility] [address] [id number] [place] [address]- 9060 22 Sep, 2013 [facility] [place] [facility] [address] [id number] [place] [address]- 5266 17 Sep, 2013 [facility] [place] [facility] [address] [id number] [place] [address]- 3523 17 Sep, 2013 [facility] [place] [facility] [address] [id number] [place] [address]- 3762 16 Sep, 2013 [facility] [place] [facility] [address] [id number] [place] [address]- 5185 16 Sep, 2013 [facility] [place] [facility] [address] [id number] [place] [address]- 7041 15 Sep, 2013 [facility] [place] [facility] [address] [id number] [place] [address]- 9657 15 Sep, 2013 [facility] [place] [facility] [address] [id number] [place] [address]- 8905 12 Sep, 2013 [facility] [place] [facility] [address] [id number] [place] [address]- 0854 12 Sep, 2013 [facility] [place] [facility] [address] [id number] [place] [address]- 4107 11 Sep, 2013 [facility] [place] [facility] [address] [id number], [place] [address]- 2542 11 Sep, 2013 [facility] [place] [facility] [address] [id number] [place] [address]- 2471 11 Sep, 2013 [facility] [place] [facility] [address] [id number] [place] [address]- 2541 11 Sep, 2013 [facility] [place] [facility] [address] [id number] [place] [address]- 1479 09 Sep, 2013 [facility] [place] [facility] [address] [id number] [place] [address]- 6092 Jun, [facility] [place] [facility] [address] [id number] [place] [address]- 9840 Jun, [facility] [place] [facility] [address] [id number] [place] [address]- 3973 Jun, [facility] [place] [facility] [address] [id number] [place] [address]- 3544 May, [facility] [place] [facility] [address] [id number] [place] [address]- 6333 May, [facility] [place] [facility] [address] [id number] [place] [address]- 9480 May, [facility] [place] [facility] [address] [id number] [place] [address]- 6903 May, [facility] [place] [facility] [address] [id number] [place] [address]- 6944 May, [facility] [place] [facility] [address] [id number] [place] [address]- 7337 May, [facility] [place] [facility] [address] [id number] [place] [address]- 1010 May, [facility] [place] [facility] [address] [id number] [place] [address]- 3534 May, [facility] [place] [facility] [address] [id number] [place] [address]- 8543 May, [facility] [place] [facility] [address] [id number] [place] [address]- 7189 May, [facility] [place] [facility] [address] [id number] [place] [address]- 9140 May, [facility] [place] [facility] [address] [id number] [place] [address]- 5795 May, [facility] [place] [facility] [address] [id number] [place] [address]- 2379 May, [facility] [place] [facility] [address] [id number] [place] [address]- 9143 Apr, [facility] [place] [facility] [address] [id number] [place] [address]- 0030 Apr, [facility] [place] [facility] [address] [id number] [place] [address]- 7681 Apr, [facility] [place] [facility] [address] [id number] [place] [address]- 6280 Apr, [facility] [place] [facility] [address] [id number] [place] [address]- 2038 Apr, [facility] [place] [facility] [address] [id number] [place] [address]- 2174 Mar, [facility] [place] [facility] [address] [id number] [place] [address]- 3724 Mar, [facility] [place] [facility] [address] [id number] [place] [address]- 1731 Mar, [facility] [place] [facility] [address] [id number] [place] [address]- 4326 February, [facility] [place] [facility] [address] [id number] [place] [address]- 8819 February, [facility] [place] [facility] [address] [id number] [place] [address]- 8361 February, [facility] [place] [facility] [address] [id number] [place] [address]- 0418 February, [facility] [place] [facility] [address] [id number] [place] [address]- 1785 February, [facility] [place] [facility] [address] [id number] [place] [address]- 8883 February, [facility] [place] [facility] [address] [id number] [place] [address]- 2063 February, [facility] [place] [facility] [address] [id number] [place] [address]- 4628 February, [facility] [place] [facility] [address] [id number] [place] [address]- 8533 February, [facility] [place] [facility] [address] [id number] [place] [address]- 3183 Jan, [facility] [place] [facility] [address] [id number] [place] [address]- 7862 Jan, [facility] [place] [facility] [address] [id number] [place] [address]- 9901 Jan, [facility] [place] [facility] [address] [id number] [place] [address]- 0203 Jan, [facility] [place] [facility] [address] [id number] [place] [address]- 7661 Jan, [facility] [place] [facility] [address] [id number] [place] [address]- 7376 Dec, [facility] [place] [facility] [address] [id number] [place] [address]- 0618 Dec, [facility] [place] [facility] [address] [id number] [place] [address]- 4525 Dec, [facility] [place] [facility] [address] [facility] [id number] [place] [address]- 5732 Dec, [facility] [place] [facility] [address] [id number] [place] [address]- 1206 Dec, [facility] [place] [facility] [address] [id number] [place] [address]- 6839 Nov, [facility] [place] [facility] [address] [id number] [place] [address]- 7772 Nov, [facility] [place] [facility] [address] [id number] [place] [address]- 7712 Nov, [facility] [place] [facility] [address] [id number] [place] [address]- 5976 Nov, [facility] [place] [facility] [address] [id number] [place] [address]- 0747 Oct, [facility] [place] [facility] [address] [id number] [place] [address]- 5897 Oct, [facility] [place] [facility] [address] [id number] [place] [address]- 1390 Oct, [facility] [place] [facility] [address] [id number] [place] [address]- 7416 Oct, [facility] [place] [facility] [address] [id number] [place] [address]- 1534 Oct, [facility] [place] [facility] [address] [id number] [place] [address]- 4820 Oct, [facility] [place] [facility] [address] [id number] [place] [address]- 5562 Oct, [facility] [place] [facility] [address] [id number] [place] [address]- 8170 Oct, [facility] [place] [facility] [address] [id number] [place] [address]- 9848 Oct, [facility] [place] [facility] [address] [id number], [place] [address]- 2201 Oct, [facility] [place] [facility] [address] [id number], [place] [address]- 9564 Aug, [facility] [place] [facility] [address] [id number], [place] [address]- 0294 Aug, [facility] [place] [facility] [address] [id number] [place] [address]- 3373 Jul, [facility] [place] [facility] [address] [id number], [place] [address]- 2558 Jul, [facility] [place] [facility] [address] [id number], [place] [address]- 7872 Jul, [facility] [place] [facility] [address] [id number], [place] [address]- 4188 09 Jul, 2013 [facility] [address] [id number] [place] [address]- 8245 Jul, [facility] [place] [facility] [address] [id number] [place] [address]- 8566 Jul, [facility] [address] [id number] [place] [address]- 1649 Apr, [facility] [place] [facility] [address] [id number] [place] [address]- 3095 Dec, [facility] [place] [facility] [address] [id number] [place] [address]- 1608 Nov, [facility] [place] [facility] [address] [id number] [place] [address]- 2446 Nov, [facility] [address] [facility] [id number] [place] [address]- 3777 Nov, [facility] [place] [facility] [address] [facility] [id number] [place] [address]- 3671 Oct, [facility] [place] [facility] [address] [facility] [id number] [place] [address]- 6733 Sep, [facility] [place] [facility] [address] [facility] [id number] [place] [address]- 7865 Sep, [facility] [place] [facility] [address] [facility] [id number] [place] [address]- 4189 Sep, [facility] [place] [facility] [address] [facility] [id number], [place] [address]- 9079 Sep, [facility] [place] [facility] [address] [id number] [place] [address]- 8160 Aug, [facility] [place] [facility] [address] [facility] [id number] [place] [address]- 9748 Aug, [facility] [place] [facility] [address] [facility] [id number], [place] [address]- 6251 Jul, [facility] [place] [facility] [address] [id number] [place] [address]- 3252 Jul, [facility] [place] [facility] [address] [id number] [place] [address]- 2085 28 Jun, 2012 [facility] [place] [facility] [address] [id number] [place] [address]- 0195 26 Jun, 2012 [facility] [place] [facility] [address] [id number] [place] [address]- 6657 24 Jun, 2012 [facility] [place] [facility] [address] [id number] [place] [address]- 9715 24 Jun, 2012 [facility] [place] [facility] [address] [id number] [place] [address]- 9114 Jun, [facility] [place] [facility] [address] [id number] [place] [address]- 3255 31 Apr, 2012 [facility] [place] [facility] [address] [id number] [place] [address]- 0513 30 Apr, 2012 [facility] [place] [facility] [address] [id number] [place] [address]- 3446 Apr, [facility] [place] [facility] [address] [id number] [place] [address]- 8145 Mar, [facility] [place] [facility] [address] [id number] [place] [address]- 8959 Mar, [facility] [place] [facility] [address] [id number] [place] [address] Mar, [facility] [place] [facility] [address] [id number] [place] [address] February, [facility] [place] [facility] [address] [id number] [place] [address] Jan, [facility] [place] [facility] [address] [id number] [place] [address] Dec, [facility] [place] [facility] [address] [id number] [place] [address] Dec, [facility] [address] [id number] [place] [address] Dec, [facility] [place] [facility] [address] [id number] [place] [address] Dec, [facility] [place] [facility] [address] [id number] [place] [address] Dec, [facility] [place] [facility] [address] [id number] [place] [address] 14 Nov, 2011 [facility] [place] [facility] [address] [id number] [place] [address] Nov, [facility] [place] [facility] [address] [id number] [place] [address] Oct, [facility] [place] [facility] [address] [id number] [place] [address] Oct, [facility] [place] [facility] [address] [id number] [place] [address] Oct, [facility] [place] [facility] [address] [id number] [place] [address] Sep, [facility] [place] [facility] [address] [id number] [place] [address] Aug, [facility] [place] [facility] [address] [id number], [place] [address] Aug, [facility] [place] [facility] [address] [id number], [place] [address] 28 Jul, 2011 [facility] [place] [facility] [address] [id number] [place] [address] 24 Jul, 2011 [facility] [place] [facility] [address] [id number] [place] [address] 19 Jul, 2011 [facility] [place] [facility] [address] [id number] [place] [address] 13 Jan, 2011 [facility] [place] [facility] [address] [id number] [place] [address] 29 Sep, 2010 [facility] [address] [id number] [place] [address] 27 Sep, 2010 [facility] [place] [facility] [address] [id number] [place] [address] Sep, [facility] [address] [id number] [place] [address] Sep, [facility] [address] [id number] [place] [address] 06 Sep, 2010 [facility] [address] [id number] [place] [address] Aug, [facility] [address] [id number] [place] [address] 16 Aug, 2010 [facility] [address] [id number] [place] [address] Aug, [facility] [address] [id number] [place] [address] Jul, [facility] [address] [id number] [place] [address] Jul, [facility] [address] [facility] [id number] [place] [address] Jul, [facility] [address] [id number] [place] [address] May, [facility] [address] [id number] [place] [address] 13 Apr, 2010 [facility] [place] [facility] [address] [id number] [place] [address] 18 Dec, 2009 [facility] [place] [facility] [address] [id number] [place] [address] 17 Sep, 2009 [facility] [place] [facility] [address] [id number] [place] [address] Sep, [facility] [address] [facility] [id number], [place] [address] Aug, [facility] [address] [id number], [place] [address] Aug, [facility] [address] [facility] [id number], [place] [address] Jul, [facility] [address] [id number], [place] [address] Mar, IMMUNIZATIONS No Known Immunizations SOCIAL HISTORY Never Assessed REASON FOR VISIT Requests return call PLAN OF CARE VITAL SIGNS MEDICATIONS Unknown [...] Hospitalization History Surgery(s) only Hospitalization History [facility] and transferred to [facility]-sepsis/ARF 2016
--- OUTSIDE RECORDS SUMMARY | 2018-10-08 19:44 | XMS REPORT ---
Author Author CHRIS HELM [facility] Address [address] [place] [address] Care Team Providers Care Control Panel Builder Name Role Phone CHRIS HELM Unavailable PROBLEMS Type Condition ICD9-CM Code PYL21-HK Code Onset Dates Condition Status SNOMED Code Problem HSV (herpes simplex virus) infection B00.9 Active 20697554 Problem Edema of both feet R60.0 Active 310354961 Problem Tobacco abuse Z72.0 Active 31782846 Problem Generalized anxiety disorder F41.1 Active 45388657 Problem Chronic pain disorder G89.4 Active 522728787 Problem Chronic migraine G43.709 Active 96660425 Problem Mixed hyperlipidemia E78.2 Active 650797801 Problem Type 2 diabetes mellitus with diabetic neuropathy, unspecified E11.40 Active 17163540 Problem USP 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 Z79.4 Active 186313735 Problem Anxiety F41.9 Active 98290217 Problem Radiculopathy of lumbar region M54.16 Active 598231846 Problem Bulging lumbar disc M51.26 Active 996096190 Problem Essential hypertension I10 Active 97142821 Problem Asthma J45.909 Active 314087702 Problem Chronic pain G89.29 Active 46265012 Problem Spinal stenosis, lumbar region M48.06 Active 46987481 Problem Gastroesophageal reflux disease without esophagitis K21.9 Active 174434256 ALLERGIES No Information ENCOUNTERS Encounter Location Date Diagnosis [facility] [id number] [address] Jun, [facility] [id number] [place] [address] 33107- 8135 Jun, [facility] [address], [place] [address] 3434 Jun, [facility] [id number] [place] [address] 69190- 3496 Jun, Asthma J45.909 [id number] [place] [address] 24614- 4431 Jun, Type 2 diabetes mellitus with diabetic neuropathy, unspecified E11.40 ; Chronic pain disorder G89.4 and Generalized anxiety disorder F41.1 [place] [address] 09198- 2502 May, Chronic pain G89.29 and Anxiety F41.9 [place] [address] 69891- 4776 May, [place] [address] 10278- 8051 May, Encounter for Depo-Provera contraception Z30.42 [place] [address] 46359- 6119 May, [place] [address] 94816- 8357 Apr, Chronic pain G89.29 [place] [id number] [place] [address] 52759- 7571 Apr, Chronic pain G89.29 and Anxiety F41.9 [place] [id number] [place] [address] 89502- 3559 Mar, HSV (herpes simplex virus) infection B00.9 ; Anxiety F41.9 and Chronic pain G89.29 [place] [id number] [place] [address] 28221- 6118 Mar, [place] [id number] [place] [address] 72008- 0493 Mar, Chronic pain G89.29 [place] [id number] [place] [address] 52513- 4469 February, Chronic pain G89.29 [place] [id number] [place] [address] 39216- 4096 Jan, Chronic pain G89.29 [place] [address] 77135- 3368 Jan, USP 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 Z79.4 [place] [address] 16475- 2836 Jan, Encounter for Depo-Provera contraception Z30.42 [place] [address] 55634- 0536 Jan, [place] [address] 91306- 5322 Jan, Chronic pain G89.29 and Anxiety F41.9 [place] [address] 67178- 6243 Jan, [place] [address] 27116- 1975 Dec, [place] [address] 28899- 5151 Dec, Gastroesophageal reflux disease without esophagitis K21.9 and Anxiety F41.9 [place] [address] 94866- 9761 Dec, Essential hypertension I10 ; Mixed hyperlipidemia E78.2 ; Type 2 diabetes mellitus with diabetic neuropathy, unspecified E11.40 ; USP 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 Z79.4 ; Chronic pain G89.29 ; HSV (herpes simplex virus) infection B00.9 ; Anxiety F41.9 and Gastroesophageal reflux disease without esophagitis K21.9 [place] [address] 51567- 0626 Dec, Chronic pain G89.29 and Chronic migraine G43.709 [place] [address] 85920- 5162 Nov, [place] [address] 54155- 4638 Nov, Essential hypertension I10 and Chronic pain G89.29 [place] [id number] [place] [address] 47807- 7400 Nov, Chronic pain G89.29 ; Essential hypertension I10 and Type 2 diabetes mellitus without complication E11.9 [place] [id number] [place] [address] 95247- 4376 Oct, Chronic pain G89.29 [place] [id number] [place] [address] 21484- 4247 Oct, [place] [id number] [place] [address] 00109- 3200 Sep, Type 2 diabetes mellitus without complication E11.9 ; Essential hypertension I10 ; 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 ; Chronic migraine G43.709 ; Chronic pain G89.29 and Acute non-recurrent maxillary sinusitis J01.00 [place] [id number] [place] [address] 53802- 0850 Sep, Encounter for Depo-Provera contraception Z30.42 [place] [id number] [place] [address] 80357- 9860 Sep, Chronic pain G89.29 and Radiculopathy of lumbar region M54.16 [place] [id number] [place] [address] 88793- 0330 Sep, [place] [id number] [place] [address] 54770- 1282 Sep, [place] [id number] [place] [address] 27412- 0664 Aug, Type 2 diabetes mellitus without complication E11.9 [place] [id number] [place] [address] 04346- 5156 Aug, [place] [id number] [place] [address] 44832- 0487 Aug, Radiculopathy of lumbar region M54.16 and Chronic pain G89.29 [facility] [address] [facility] [id number], [place] [address] 7695 Aug, Type 2 diabetes mellitus without complication E11.9 [facility] [address] [facility] [id number], [place] [address]- 5306 Aug, Type 2 diabetes mellitus without complication E11.9 [facility] [address] [facility] [id number], [place] [address]- 9912 Jul, Type 2 diabetes mellitus without complication E11.9 [facility] [address] [facility] [id number], [place] [address] 7353 Jul, [facility] [address] [facility] [id number] [place] [address] 37969- 8336 Jul, Chronic pain G89.29 [facility] [address] [facility] [id number], [place] [address] 3666 Jul, [facility] [address] [facility] [id number], [place] [address]- 6948 Jul, [facility] [address] [facility] [id number], [place] [address]- 6905 Jul, Type 2 diabetes mellitus without complication E11.9 [facility] [address] [facility] [id number], [place] [address]- 1246 Jul, [facility] [address] [facility] [id number], [place] [address]- 6720 Jul, Type 2 diabetes mellitus without complication E11.9 [facility] [address] [facility] [id number], [place] [address]- 2658 Jul, [facility] [address] [facility] [id number], [place] [address]- 8926 Jul, [facility] [address] [facility] [id number], [place] [address]- 7316 Jul, [facility] [address] [id number], [place] [address]- 2299 Jun, Type 2 diabetes mellitus without complication E11.9 [facility] [id number] [place] [address] 45143- 4494 Jun, Chronic migraine G43.709 ; Type 2 diabetes mellitus without complication E11.9 ; Calculus of right kidney N20.0 ; Yeast dermatitis B37.2 and HSV (herpes simplex virus) infection B00.9 [place] [id number] [place] [address] 73592- 2623 Jun, Type 2 diabetes mellitus without complication E11.9 [facility] [id number] [place] [address] 88478- 8040 Jun, [place] [id number] [place] [address] 66735- 4202 Jun, Radiculopathy of lumbar region M54.16 and Chronic pain G89.29 [place] [address] 64516- 1703 Jun, Encounter for Depo-Provera contraception Z30.42 [place] [id number] [place] [address] 14687- 5864 Jun, Type 2 diabetes mellitus without complication E11.9 [place] [id number] [place] [address] 17779- 6666 Jun, [facility] [id number] [place] [address] 32162 -3334 May, Acute nasopharyngitis (common cold) J00 [facility] [id number] [place] [address] 63205- 1848 May, Chronic pain G89.29 [place] [address] 23500- 3072 May, Headache following lumbar puncture G97.1 [place] [id number] [place] [address] 59256- 6342 08 May, 2017 Radiculopathy of lumbar region M54.16 [place] [id number] [place] [address] 12936- 6781 Apr, [place] [address] 37917- 3006 Apr, Type 2 diabetes mellitus without complication E11.9 ; Chronic pain G89.29 ; Essential hypertension I10 ; Radiculopathy of lumbar region M54.16 ; Spinal stenosis, lumbar region M48.06 ; Gastroesophageal reflux disease without esophagitis K21.9 ; HSV (herpes simplex virus) infection B00.9 ; Mixed hyperlipidemia E78.2 ; Anxiety F41.9 and Asthma J45.909 [place] [address] 79457- 2166 Apr, Encounter for Depo-Provera contraception Z30.42 [place] [address] 64500- 0054 Apr, Chronic pain G89.29 and Anxiety F41.9 [place] [address] 51902- 6589 Mar, [place] [address] 54607- 3826 Mar, [place] [id number] [place] [address] 52790- 0194 Mar, Mixed hyperlipidemia E78.2 [place] [address] 57490- 4830 Mar, Type 2 diabetes mellitus without complication E11.9 ; Chronic pain G89.29 ; Essential hypertension I10 ; Radiculopathy of lumbar region M54.16 ; Spinal stenosis, lumbar region M48.06 ; Gastroesophageal reflux disease without esophagitis K21.9 ; HSV (herpes simplex virus) infection B00.9 ; Mixed hyperlipidemia E78.2 and Anxiety F41.9 [place] [id number] [place] [address] 04099- 0371 Mar, [place] [address] 31830- 8217 Mar, [facility] [address], [place] [address]- 2844 Mar, [facility] [id number] [place] [address] 99589- 1368 February, Chronic pain G89.29 [facility] [id number] [place] [address] 18137- 6259 February, [facility] [id number] [place] [address] 28796- 5234 Jan, Chronic pain G89.29 [facility] [id number] [place] [address] 12161- 3586 Jan, Type 2 diabetes mellitus without complication E11.9 [place] [id number] [place] [address] 82606- 2688 Jan, [facility] [id number] [place] [address] 85970- 2484 Jan, [facility] [id number] [place] [address] 13679- 1111 Jan, [facility] [id number] [place] [address] 18303- 5494 Jan, Type 2 diabetes mellitus without complication [...] J01.00 and Encounter for Depo-Provera contraception Z30.42 [facility] [address], [place] [address]- 4540 Dec, Chronic pain G89.29 [facility] [id number] [place] [address] 70041- 3657 Dec, Abnormal ankle brachial index (BERNARDINO) R68.89 [place] [id number] [place] [address] 14632- 1979 Dec, [place] [id number] [place] [address] 74325- 2666 Dec, Routine gynecological examination Z01.419 ; Chronic [...] virus) infection B00.9 and Allergic rhinitis 477.9 [place] [id number] [place] [address] 85015- 7139 Nov, Chronic pain G89.29 [place] [id number] [place] [address] 19108- 8600 Nov, Chronic pain G89.29 ; Encounter for Depo-Provera [...] mucoid otitis media of both ears H65.113 [place] [address] [place] [address] 70596- 4674 Oct, [place] [id number] [place] [address] 40225- 3173 Oct, Chronic pain G89.29 [place] [id number] [place] [address] 82117- 8446 Oct, Chronic pain G89.29 [place] [address] [place] [address] 49025- 0668 Sep, Chronic pain G89.29 ; Type 2 diabetes mellitus without complication E11.9 ; Essential hypertension I10 ; Radiculopathy of lumbar region M54.16 ; Spinal stenosis, lumbar region M48.06 ; Gastroesophageal reflux disease without esophagitis K21.9 ; Encounter for surveillance of injectable contraceptive Z30.42 ; Bilateral cold feet R20.9 ; Pain of left foot M79.672 and Pain in right foot M79.671 [place] [address] 42322- 7023 Sep, [place] [address] 47472- 8539 17 Aug, 2016 [place] [address] 38496- 6119 Aug, [place] [address] 02345- 5169 Aug, Chronic pain G89.29 ; Type 2 diabetes mellitus without complication E11.9 ; Essential hypertension I10 ; Rash and nonspecific skin eruption R21 and Upper respiratory infection, acute J06.9 [place] [address] 96300- 8863 Aug, [place] [address] 52891- 0169 04 Aug, 2016 [place] [address] 03189- 8582 Jul, [place] [address] 45099- 8851 Jul, Dysuria R30.0 ; Encounter for Depo-Provera contraception Z30.42 ; Herpes simplex B00.9 ; Nausea & vomiting R11.2 and Asthma J45.909 [place] [address] 37066- 6856 Jun, Dysuria R30.0 [place] [address] [place] [address]- 5371 19 Jun, 2016 Dysuria R30.0 [facility] [id number] [place] [address] 69595- 4842 15 Jun, 2016 [facility] [id number] [place] [address] 66423- 9910 13 Jun, 2016 [facility] [id number] [place] [address] 02327- 6026 May, [facility] [id number] [place] [address] 17223- 9291 May, [facility] [id number] [place] [address] 91623- 4222 May, Chronic pain G89.29 ; Essential hypertension I10 ; Type 2 diabetes mellitus without complication E11.9 ; Edema of both feet R60.0 and Rash and nonspecific skin eruption R21 [place] [id number] [place] [address] 91850- 2930 Apr, [facility] [id number] [place] [address] 04180- 3640 Mar, Carpal tunnel syndrome, left upper limb G56.02 and Carpal tunnel syndrome, right upper limb G56.01 [place] [id number] [place] [address] 81501- 8554 Mar, [place] [id number] [place] [address] 90031- 2571 Mar, Encounter for Depo-Provera contraception Z30.42 [facility] [id number] [place] [address] 90373- 4212 February, [facility] [id number] [place] [address] 37688- 0285 February, [facility] [id number] [place] [address] 60491- 2354 February, Chronic pain G89.29 ; Essential hypertension I10 ; Type 2 diabetes mellitus without complication E11.9 ; HSV (herpes simplex virus) infection B00.9 ; Anxiety F41.9 ; Hypersomnia G47.10 ; Tobacco abuse Z72.0 ; Hand pain, left M79.642 ; Hand pain, right M79.641 ; Left foot pain M79.672 and Heart palpitations R00.2 [place] [address] 40916- 4604 Jan, [place] [address] 02805- 4797 Jan, [place] [address] 08259- 5757 Jan, [address] 71207- 1672 Jan, [address] 30404- 7682 Jan, Upper respiratory infection J06.9 and Type 2 diabetes mellitus without complication E11.[address] 75540- 3777 Dec, [address] 30159- 6724 Dec, Chronic pain G89.29 ; Essential hypertension I10 ; Type 2 diabetes mellitus without complication E11.9 ; HSV (herpes simplex virus) infection B00.9 ; Anxiety F41.9 ; Upper respiratory infection J06.9 ; Hypersomnia G47.10 and Tobacco abuse Z72.0 [place] [id number] [place] [address] 08256- 1647 Dec, Encounter for Depo-Provera contraception Z30.[address] 29619- 5103 Dec, [address] 27992- 4681 Dec, Chronic pain G89.29 ; Sinusitis J32.9 ; Snoring R06.83 and Daytime hypersomnia G47.19 [place] [id number] [place] [address] 84844- 5384 Nov, HSV (herpes simplex virus) infection B00.9 ; Encounter for Papanicolaou smear for cervical cancer screening Z12.4 ; Screening for STD sexually transmitted disease Z11.3 and Bartholin's gland cyst N75.0 [place] [address] 81714- 2750 Nov, [place] [address] 23325- 8937 Nov, [place] [address] 24665- 1683 Nov, Essential hypertension I10 ; Type 2 diabetes mellitus without complication E11.9 ; HSV (herpes simplex virus) infection B00.9 ; Spinal stenosis, lumbar region M48.06 and Vaginal yeast infection B37.3 [place] [address] 66595- 0893 Nov, [place] [address] 80418- 8649 Nov, [place] [id number] [place] [address] 96965- 3494 Oct, [place] [id number] [place] [address] 93896- 0201 Oct, HSV (herpes simplex virus) infection B00.9 ; Yeast infection B37.9 ; Change in bowel habit R19.4 ; Nausea & vomiting R11.2 and Gastroesophageal reflux disease without esophagitis K21.9 [place] [address] 33339- 4753 Oct, [place] [id number] [place] [address] 78821- 6637 Oct, Type 2 diabetes mellitus without complication E11.9 ; Essential hypertension I10 and Acute maxillary sinusitis, recurrence not specified J01.00 [place] [id number] [place] [address] 38640- 2923 Oct, [place] [address] 85585- 3647 Oct, [place] [id number] [place] [address] 02057- 5600 Oct, Exposure to head lice Z20.7 ; Blood glucose abnormal R73.09 ; Boil of buttock L02.32 and Type 2 diabetes mellitus without complication E11.[address] 70389- 1599 Oct, [address] 08616- 9759 Sep, [address] 70885- 1836 Sep, [address] 43627- 5346 Aug, Encounter for Depo-Provera contraception Z30.[address] 40520- 8341 Aug, Anxiety F41.9 ; Spinal stenosis, lumbar region M48.06 ; Radiculopathy of lumbar region M54.16 ; Asthma J45.909 ; GERD (gastroesophageal reflux disease) K21.9 ; Essential hypertension I10 and Long-term use of high- risk medication Z79.899 [place] [id number] [place] [address] 06880- 4637 Jul, [address] 16645- 7090 Jun, Hemorrhoid 455.6 [place] [id number] [place] [address] 66348- 7603 Jun, [address] 71996- 9562 Jun, Anxiety 300.00 ; Asthma 493.90 ; Hyperhidrosis 705.21 ; Chest discomfort 786.59 and Upper respiratory infection 465.[address] 04907- 8524 May, Encounter for Depo-Provera contraception V25.[address] 74890- 6524 May, [place] [address] 27739- 7156 May, [address] 81343- 7795 May, Spinal stenosis of lumbar region with radiculopathy 724.02 ; Bulging of intervertebral disc between L4 and L5 722.10 ; GERD ( gastroesophageal reflux disease) 530.81 ; Chronic pain 338.29 ; Declining mobility 799.89 and Epigastric pain 789.[address] 99096- 9188 Apr, [address] 75504- 1761 Apr, Nausea 787.02 and Heart burn 787.[address] 39830- 4199 Mar, Lumbago 724.2 ; Vitamin D deficiency 268.9 ; Anxiety 300.00 ; Allergic rhinitis 477.9 and Contraceptive surveillance V25.40 [place] [id number] [place] [address] 66788- 6323 February, 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 ; Chronic pain 338.29 and Vaginal discharge 623.5 [place] [id number] [place] [address] 00805- 3427 February, [address] 29045- 0442 February, [facility] [place] [facility] [address] [id number] [place] [address]- 9224 14 Jan, 2015 [facility] [place] [facility] [address] [id number] [place] [address]- 6366 Jan, [facility] [place] [facility] [address] [id number] [place] [address]- 6719 Dec, [facility] [place] [facility] [address] [id number] [place] [address]- 3777 Dec, [facility] [place] [facility] [address] [id number] [place] [address]- 6453 Dec, [facility] [place] [facility] [address] [id number] [place] [address]- 8852 Dec, [facility] [place] [facility] [address] [id number] [place] [address]- 9994 Dec, [facility] [place] [facility] [address] [id number] [place] [address]- 1711 Dec, [facility] [place] [facility] [address] [id number] [place] [address]- 5278 Dec, [facility] [place] [facility] [address] [id number] [place] [address]- 2132 Dec, [facility] [place] [facility] [address] [id number] [place] [address]- 6717 Dec, [facility] [place] [facility] [address] [id number] [place] [address]- 3979 Dec, [facility] [place] [facility] [address] [id number] [place] [address]- 0100 Dec, [facility] [place] [facility] [address] [id number] [place] [address]- 1216 Dec, [facility] [place] [facility] [address] [id number] [place] [address]- 8685 Nov, [facility] [place] [facility] [address] [id number] [place] [address]- 3648 27 Nov, 2014 [facility] [place] [facility] [address] [id number] [place] [address]- 2286 24 Nov, 2014 [facility] [place] [facility] [address] [id number] [place] [address] 24 Nov, 2014 [facility] [place] [facility] [address] [facility] [id number] [place] [address] 23 Nov, 2014 [facility] [place] [facility] [address] [id number] [place] [address] 23 Nov, 2014 [facility] [place] [facility] [address] [id number] [place] [address] 16 Nov, 2014 [facility] [place] [facility] [address] [facility] [id number] [place] [address] 16 Nov, 2014 [facility] [place] [facility] [address] [facility] [id number] [place] [address] 13 Nov, 2014 [facility] [place] [facility] [address] [facility] [id number] [place] [address] 13 Nov, 2014 [facility] [place] [facility] [address] [facility] [id number] [place] [address] 13 Nov, 2014 [facility] [place] [facility] [address] [facility] [id number] [place] [address] 13 Nov, 2014 [facility] [place] [facility] [address] [facility] [id number] [place] [address] 13 Nov, 2014 [facility] [place] [facility] [address] [facility] [id number] [place] [address] 13 Nov, 2014 [facility] [place] [facility] [address] [id number] [place] [address] 13 Nov, 2014 [facility] [place] [facility] [address] [facility] [id number] [place] [address] 13 Nov, 2014 [facility] [place] [facility] [address] [facility] [id number] [place] [address] Nov, 2014 [facility] [place] [facility] [address] [id number] [place] [address] Nov, 2014 [facility] [place] [facility] [address] [id number] [place] [address] Nov, 2014 [facility] [place] [facility] [address] [facility] [id number] [place] [address] Nov, 2014 [facility] [place] [facility] [address] [id number] [place] [address] Nov, 2014 [facility] [place] [facility] [address] [id number] [place] [address] 2046 Nov, 2014 [facility] [place] [facility] [address] [facility] [id number] [place] [address] Nov, 2014 [facility] [place] [facility] [address] [facility] [id number] [place] [address] 7399 Oct, [facility] [place] [facility] [address] [id number] [place] [address] 2821 Oct, [facility] [place] [facility] [address] [id number] [place] [address] 8970 Oct, [facility] [place] [facility] [address] [facility] [id number] [place] [address]- 1773 Oct, [facility] [place] [facility] [address] [facility] [id number] [place] [address]- 2479 Oct, [facility] [place] [facility] [address] [id number] [place] [address]- 8230 Oct, [facility] [place] [facility] [address] [id number] [place] [address]- 7027 Oct, [facility] [place] [facility] [address] [facility] [id number] [place] [address]- 6625 Oct, [facility] [place] [facility] [address] [facility] [id number] [place] [address]- 2467 Oct, [facility] [place] [facility] [address] [id number] [place] [address]- 4[address] Oct, [facility] [address] [id number] [place] [address] 4204 Oct, [facility] [place] [facility] [address] [id number] [place] [address] 1946 Oct, [facility] [address] [id number] [place] [address]- 0178 Oct, [facility] [place] [facility] [address] [id number] [place] [address]- 8566 Oct, [facility] [place] [facility] [address] [id number] [place] [address]- 4143 Oct, [facility] [place] [facility] [address] [id number] [place] [address]- 5610 Oct, [facility] [place] [facility] [address] [id number] [place] [address]- 9910 Oct, [facility] [address] [id number] [place] [address]- 5930 Oct, [facility] [place] [facility] [address] [id number] [place] [address]- 9827 Oct, [facility] [address] [id number] [place] [address]- 9062 Oct, [facility] [place] [facility] [address] [id number] [place] [address]- 8064 Oct, [facility] [place] [facility] [address] [id number] [place] [address]- 1238 Sep, [facility] [place] [facility] [address] [id number] [place] [address]- 8681 Sep, [facility] [place] [facility] [address] [id number] [place] [address]- 4816 Sep, [facility] [place] [facility] [address] [id number] [place] [address]- 8457 Sep, [facility] [place] [facility] [address] [id number] [place] [address]- 6216 17 Sep, 2014 [facility] [place] [facility] [address] [id number] [place] [address]- 2910 17 Sep, 2014 [facility] [place] [facility] [address] [id number] [place] [address]- 5962 15 Sep, 2014 [facility] [place] [facility] [address] [id number] [place] [address]- 4858 15 Sep, 2014 [facility] [place] [facility] [address] [id number] [place] [address]- 0603 12 Sep, 2014 [facility] [place] [facility] [address] [id number] [place] [address]- 5401 12 Sep, 2014 [facility] [place] [facility] [address] [id number] [place] [address]- 9852 11 Sep, 2014 [facility] [place] [facility] [address] [id number] [place] [address]- 9599 11 Sep, 2014 [facility] [place] [facility] [address] [id number] [place] [address]- 4130 11 Sep, 2014 [facility] [place] [facility] [address] [id number] [place] [address]- 2696 11 Sep, 2014 [facility] [place] [facility] [address] [id number] [place] [address]- 6909 11 Sep, 2014 [facility] [place] [facility] [address] [id number] [place] [address]- 2476 11 Sep, 2014 [facility] [place] [facility] [address] [id number] [place] [address]- 4868 10 Sep, 2014 [facility] [place] [facility] [address] [id number] [place] [address]- 8791 10 Sep, 2014 [facility] [place] [facility] [address] [id number] [place] [address]- 9554 08 Sep, 2014 [facility] [place] [facility] [address] [id number] [place] [address]- 0869 Sep, [facility] [place] [facility] [address] [id number] [place] [address]- 0470 Aug, [facility] [place] [facility] [address] [id number] [place] [address]- 8988 Aug, [facility] [place] [facility] [address] [id number] [place] [address]- 1231 Aug, [facility] [place] [facility] [address] [id number] [place] [address]- 9511 Aug, [facility] [place] [facility] [address] [id number] [place] [address]- 6625 Aug, [facility] [place] [facility] [address] [id number] [place] [address]- 2206 Aug, [facility] [place] [facility] [address] [id number] [place] [address]- 1740 Aug, [facility] [place] [facility] [address] [id number] [place] [address]- 1564 Aug, [facility] [place] [facility] [address] [id number] [place] [address]- 3838 Aug, [facility] [place] [facility] [address] [facility] [id number] [place] [address]- 9489 Jul, [facility] [place] [facility] [address] [id number] [place] [address]- 9297 Jul, [facility] [place] [facility] [address] [id number] [place] [address]- 4055 Jul, [facility] [place] [facility] [address] [id number] [place] [address]- 0300 Jul, [facility] [place] [facility] [address] [id number] [place] [address]- 1846 Jul, [facility] [place] [facility] [address] [id number] [place] [address]- 0590 Jul, [facility] [place] [facility] [address] [id number] [place] [address]- 5656 Jul, [facility] [place] [facility] [address] [id number] [place] [address]- 3584 Jul, [facility] [place] [facility] [address] [id number] [place] [address]- 8116 Jul, [facility] [place] [facility] [address] [id number] [place] [address]- 3831 Jul, [facility] [place] [facility] [address] [id number] [place] [address]- 5762 Jul, [facility] [place] [facility] [address] [id number] [place] [address]- 5165 Jul, [facility] [place] [facility] [address] [id number] [place] [address]- 7271 Jul, [facility] [place] [facility] [address] [id number] [place] [address]- 2074 Jul, [facility] [place] [facility] [address] [id number] [place] [address]- 3692 30 Jun, 2013 [facility] [place] [facility] [address] [id number] [place] [address]- 2801 30 Jun, 2013 [facility] [place] [facility] [address] [id number] [place] [address]- 2543 25 Jun, 2013 [facility] [place] [facility] [address] [id number] [place] [address]- 2543 25 Sep, 2013 [facility] [place] [facility] [address] [id number] [place] [address] 2546 25 Sep, 2013 [facility] [place] [facility] [address] [id number] [place] [address] 2546 25 Jun, 2013 [facility] [place] [facility] [address] [id number] [place] [address]- 2549 24 Sep, 2013 [facility] [place] [facility] [address] [id number] [place] [address]- 7585 24 Sep, 2013 [facility] [place] [facility] [address] [id number] [place] [address]- 8547 22 Sep, 2013 [facility] [place] [facility] [address] [id number] [place] [address]- 5466 22 Sep, 2013 [facility] [place] [facility] [address] [id number] [place] [address] 2546 17 Sep, 2013 [facility] [place] [facility] [address] [id number] [place] [address] 2544 17 Sep, 2013 [facility] [place] [facility] [address] [id number] [place] [address]- 1434 16 Sep, 2013 [facility] [place] [facility] [address] [id number] [place] [address]- 6089 16 Sep, 2013 [facility] [place] [facility] [address] [id number] [place] [address]- 8813 15 Sep, 2013 [facility] [place] [facility] [address] [id number] [place] [address]- 0084 15 Sep, 2013 [facility] [place] [facility] [address] [id number] [place] [address]- 6012 12 Jun, 2013 [facility] [place] [facility] [address] [id number] [place] [address]- 9830 12 Sep, 2013 [facility] [place] [facility] [address] [id number] [place] [address]- 2601 11 Sep, 2013 [facility] [place] [facility] [address] [id number], [place] [address] 2544 11 Sep, 2013 [facility] [place] [facility] [address] [id number] [place] [address] 2546 11 Sep, 2013 [facility] [place] [facility] [address] [id number] [place] [address]- 2543 11 Sep, 2013 [facility] [place] [facility] [address] [id number] [place] [address]- 2544 09 Sep, 2013 [facility] [place] [facility] [address] [id number] [place] [address]- 3665 Jun, [facility] [place] [facility] [address] [id number] [place] [address]- 7502 Jun, [facility] [place] [facility] [address] [id number] [place] [address]- 7941 Jun, [facility] [place] [facility] [address] [id number] [place] [address]- 5211 May, [facility] [place] [facility] [address] [id number] [place] [address]- 0458 May, [facility] [place] [facility] [address] [id number] [place] [address]- 2586 May, [facility] [place] [facility] [address] [id number] [place] [address]- 0612 May, [facility] [place] [facility] [address] [id number] [place] [address]- 0212 May, [facility] [place] [facility] [address] [id number] [place] [address]- 5104 May, [facility] [place] [facility] [address] [id number] [place] [address]- 0826 May, [facility] [place] [facility] [address] [id number] [place] [address]- 7803 May, [facility] [place] [facility] [address] [id number] [place] [address]- 6005 May, [facility] [place] [facility] [address] [id number] [place] [address]- 8450 May, [facility] [place] [facility] [address] [id number] [place] [address]- 9992 May, [facility] [place] [facility] [address] [id number] [place] [address]- 6038 May, [facility] [place] [facility] [address] [id number] [place] [address]- 4111 May, [facility] [place] [facility] [address] [id number] [place] [address]- 2977 Apr, [facility] [place] [facility] [address] [id number] [place] [address]- 9488 Apr, [facility] [place] [facility] [address] [id number] [place] [address]- 1339 Apr, [facility] [place] [facility] [address] [id number] [place] [address]- 0660 Apr, [facility] [place] [facility] [address] [id number] [place] [address]- 6538 Apr, [facility] [place] [facility] [address] [id number] [place] [address]- 7304 Mar, [facility] [place] [facility] [address] [id number] [place] [address]- 8908 Mar, [facility] [place] [facility] [address] [id number] [place] [address]- 1561 Mar, [facility] [place] [facility] [address] [id number] [place] [address]- 2893 February, [facility] [place] [facility] [address] [id number] [place] [address]- 9535 February, [facility] [place] [facility] [address] [id number] [place] [address]- 8955 February, [facility] [place] [facility] [address] [id number] [place] [address]- 4340 February, [facility] [place] [facility] [address] [id number] [place] [address]- 8828 February, [facility] [place] [facility] [address] [id number] [place] [address]- 7656 February, [facility] [place] [facility] [address] [id number] [place] [address]- 8296 February, [facility] [place] [facility] [address] [id number], [place] [address]- 7394 February, [facility] [place] [facility] [address] [id number] [place] [address]- 1159 February, [facility] [place] [facility] [address] [id number] [place] [address]- 3607 Jan, [facility] [place] [facility] [address] [id number] [place] [address]- 7471 Jan, [facility] [place] [facility] [address] [id number] [place] [address]- 9737 Jan, [facility] [place] [facility] [address] [id number] [place] [address]- 2133 Jan, [facility] [place] [facility] [address] [id number] [place] [address]- 3526 Jan, [facility] [place] [facility] [address] [facility] [id number] [place] [address]- 0503 Dec, [facility] [place] [facility] [address] [id number] [place] [address]- 0616 Dec, [facility] [place] [facility] [address] [id number] [place] [address]- 2936 Dec, [facility] [place] [facility] [address] [facility] [id number] [place] [address]- 8021 Dec, [facility] [place] [facility] [address] [id number] [place] [address]- 4810 Dec, [facility] [place] [facility] [address] [id number] [place] [address]- 2803 Nov, [facility] [place] [facility] [address] [id number] [place] [address]- 2828 Nov, [facility] [place] [facility] [address] [id number] [place] [address]- 8709 Nov, [facility] [place] [facility] [address] [facility] [id number] [place] [address]- 9827 Nov, [facility] [place] [facility] [address] [id number] [place] [address]- 6676 Oct, [facility] [place] [facility] [address] [id number] [place] [address]- 0393 Oct, [facility] [place] [facility] [address] [id number] [place] [address]- 1903 Oct, [facility] [place] [facility] [address] [id number] [place] [address]- 2536 Oct, [facility] [place] [facility] [address] [id number] [place] [address]- 1879 Oct, [facility] [place] [facility] [address] [id number] [place] [address]- 2194 Oct, [facility] [place] [facility] [address] [id number] [place] [address]- 9728 Oct, [facility] [place] [facility] [address] [id number] [place] [address]- 5891 Oct, [facility] [place] [facility] [address] [id number] [place] [address]- 8624 Oct, [facility] [place] [facility] [address] [id number] [place] [address]- 3621 Oct, [facility] [place] [facility] [address] [id number] [place] [address]- 3458 Aug, [facility] [place] [facility] [address] [id number] [place] [address]- 6359 Aug, [facility] [place] [facility] [address] [id number] [place] [address]- 3424 Jul, [facility] [place] [facility] [address] [id number] [place] [address]- 3538 Jul, [facility] [place] [facility] [address] [id number] [place] [address]- 9493 Jul, [facility] [place] [facility] [address] [id number] [place] [address]- 1716 Jul, [facility] [place] [facility] [address] [id number] [place] [address]- 9061 Jul, [facility] [place] [facility] [address] [id number] [place] [address]- 5807 Jul, [facility] [place] [facility] [address] [id number] [place] [address]- 8492 Apr, [facility] [place] [facility] [address] [id number] [place] [address]- 9705 Dec, [facility] [place] [facility] [address] [id number] [place] [address]- 0776 Nov, [facility] [place] [facility] [address] [id number] [place] [address]- 9241 Nov, [facility] [place] [facility] [address] [id number] [place] [address]- 1412 Nov, [facility] [place] [facility] [address] [id number] [place] [address]- 9963 Oct, [facility] [place] [facility] [address] [id number] [place] [address]- 7861 Sep, [facility] [place] [facility] [address] [id number] [place] [address]- 2357 Sep, [facility] [place] [facility] [address] [id number] [place] [address]- 6412 Sep, [facility] [place] [facility] [address] [id number], [place] [address]- 3879 Sep, [facility] [place] [facility] [address] [id number] [place] [address]- 1494 Aug, [facility] [place] [facility] [address] [id number] [place] [address]- 1927 Aug, [facility] [place] [facility] [address] [id number] [place] [address]- 5608 Jul, [facility] [place] [facility] [address] [id number] [place] [address]- 8054 12 Jul, 2012 [facility] [place] [facility] [address] [id number] [place] [address]- 4275 28 Jun, 2012 [facility] [place] [facility] [address] [id number] [place] 3306 26 Jun, 2012 [facility] [place] [facility] [address] [id number] [place] [address]- 2216 24 Jun, 2012 [facility] [place] [facility] [address] [id number] [place] [address]- 2528 24 Jun, 2012 [facility] [place] [facility] [address] [id number] [place] [address]- 5109 12 Jun, 2012 [facility] [place] [facility] [address] [id number] [place] [address]- 6498 31 Apr, 2012 [facility] [place] [facility] [address] [id number] [place] [address]- 2814 30 Apr, 2012 [facility] [address] [id number] [place] [address]- 9826 Apr, [facility] [place] [facility] [address] [id number] [place] [address]- 7056 Mar, [facility] [address] [id number] [place] [address]- 1027 Mar, [facility] [place] [facility] [address] [id number] [place] [address]- 4146 Mar, [facility] [place] [facility] [address] [id number] [place] [address]- 9488 February, [facility] [place] [facility] [address] [id number] [place] [address]- 7547 Jan, [facility] [place] [facility] [address] [id number] [place] [address]- 2084 Dec, [facility] [place] [facility] [address] [id number] [place] [address]- 3128 Dec, [facility] [place] [facility] [address] [id number] [place] [address]- 7408 Dec, [facility] [place] [facility] [address] [id number] [place] [address]- 6061 19 Dec, 2011 [facility] [place] [facility] [address] [id number] [place] [address]- 2064 Dec, [facility] [place] [facility] [address] [id number] [place] [address]- 3206 14 Nov, 2011 [facility] [place] [facility] [address] [id number] [place] [address]- 5156 Nov, [facility] [place] [facility] [address] [id number] [place] [address]- 2572 Oct, [facility] [place] [facility] [address] [id number] [place] [address]- 5567 Oct, [facility] [place] [facility] [address] [id number] [place] [address]- 2993 Oct, [facility] [place] [facility] [address] [id number] [place] [address]- 7151 Sep, [facility] [place] [facility] [address] [id number] [place] [address] Aug, [facility] [place] [facility] [address] [id number], [place] [address] Aug, [facility] [place] [facility] [address] [id number], [place] [address] 28 Jul, 2011 [facility] [place] [facility] [address] [id number] [place] [address] 24 Jul, 2011 [facility] [place] [facility] [address] [id number] [place] [address] 19 Jul, 2011 [facility] [place] [facility] [address] [id number] [place] [address] 13 Jan, 2011 [facility] [place] [facility] [address] [id number] [place] [address] 29 Sep, 2010 [facility] [address] [id number] [place] [address] 27 Sep, 2010 [facility] [place] [facility] [address] [id number] [place] [address] Sep, [facility] [address] [id number] [place] [address] Sep, [facility] [place] [facility] [address] [id number] [place] [address] 06 Sep, 2010 [facility] [place] [facility] [address] [id number] [place] [address] 16 Aug, 2010 [facility] [place] [facility] [address] [id number] [place] [address] 16 Aug, 2010 [facility] [address] [id number] [place] [address] 08 Aug, 2010 [facility] [place] [facility] [address] [id number] [place] [address] Jul, [facility] [place] [facility] [address] [id number] [place] [address] Jul, [facility] [place] [facility] [address] [facility] [id number] [place] [address] Jul, [facility] [place] [facility] [address] [id number] [place] [address] May, [facility] [place] [facility] [address] [id number] [place] [address] 13 Apr, 2010 [facility] [place] [facility] [address] [id number] [place] [address] 18 Dec, 2009 [facility] [place] [facility] [address] [id number] [place] [address] 17 Sep, 2009 [facility] [place] [facility] [address] [id number] [place] [address] 17 Sep, 2009 [facility] [address] [facility] [id number], [place] [address] Aug, [facility] [address] [facility] [id number], [place] [address] Aug, [facility] [address] [facility] [id number], [place] [address] Jul, [facility] [address] [facility] [id number], [place] [address] 10 Mar, 2009 IMMUNIZATIONS No Known Immunizations SOCIAL HISTORY Never Assessed REASON FOR VISIT resend rx PLAN OF CARE VITAL SIGNS MEDICATIONS Medication Instructions Dosage Frequency Start Date End Date Duration Status Nabumetone 500 mg Orally Twice a day 1 tablet 12h 90 days Active RESULTS No Results PROCEDURES No [...] [facility] and transferred to [place]-sepsis/ARF 2016
--- OUTSIDE RECORDS SUMMARY | 2018-10-08 19:44 | XMS REPORT ---
Author Author REIDVALENTINO Mcelroy Organization [facility] Address [address] [place] [address] Care Team Providers Care [employer] Name Role Phone REIDVALENTINO Mcelroy Unavailable PROBLEMS Type Condition ICD9-CM Code BUW67-DV Code Onset Dates Condition Status SNOMED Code Problem HSV (herpes simplex virus) infection B00.9 Active 99909871 Problem Edema of both feet R60.0 Active 326048555 Problem Tobacco abuse Z72.0 Active 35085755 Problem Generalized anxiety disorder F41.1 Active 97656712 Problem Chronic pain disorder G89.4 Active 820942806 Problem Chronic migraine G43.709 Active 82390517 Problem Mixed hyperlipidemia E78.2 Active 938104823 Problem Type 2 diabetes mellitus with diabetic neuropathy, unspecified E11.40 Active 30817796 Problem long term 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 Z79.4 Active 386843354 Problem Anxiety F41.9 Active 80602441 Problem Radiculopathy of lumbar region M54.16 Active 587493844 Problem Bulging lumbar disc M51.26 Active 171852624 Problem Essential hypertension I10 Active 04255554 Problem Asthma J45.909 Active 798531734 Problem Chronic pain G89.29 Active 37886276 Problem Spinal stenosis, lumbar region M48.06 Active 95648431 Problem Gastroesophageal reflux disease without esophagitis K21.9 Active 404691551 ALLERGIES No Information ENCOUNTERS Encounter Location Date Diagnosis [facility] [id number], [place] [address] Jun, [facility] [id number] [place] [address] 39916- 8707 Jun, [facility] [address], [place] [address] 2882 Jun, [facility] [id number] [place] [address] 09365- 7944 Jun, Asthma J45.909 [place] [id number] [place] [address] 84197- 8369 Jun, Type 2 diabetes mellitus with diabetic neuropathy, unspecified E11.40 ; Chronic pain disorder G89.4 and Generalized anxiety disorder F41.1 [place] [id number] [place] [address] 10237- 7124 May, Chronic pain G89.29 and Anxiety F41.9 [place] [address] 44140- 2638 May, [place] [address] 98028- 3455 May, Encounter for Depo-Provera contraception Z30.42 [place] [address] 11207- 8806 May, [place] [address] 00269- 2510 Apr, Chronic pain G89.29 [place] [id number] [place] [address] 63551- 6010 Apr, Chronic pain G89.29 and Anxiety F41.9 [place] [id number] [place] [address] 26431- 3343 Mar, HSV (herpes simplex virus) infection B00.9 ; Anxiety F41.9 and Chronic pain G89.29 [place] [id number] [place] [address] 28191- 6715 Mar, [place] [address] 15550- 9384 Mar, Chronic pain G89.29 [place] [id number] [place] [address] 32856- 1980 February, Chronic pain G89.29 [place] [id number] [place] [address] 40430- 1437 Jan, Chronic pain G89.29 [place] [id number] [place] [address] 06384- 5446 Jan, long term 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 Z79.4 [place] [id number] [place] [address] 26395- 6170 Jan, Encounter for Depo-Provera contraception Z30.42 [place] [address] 15161- 9041 Jan, [place] [address] 35978- 1383 Jan, Chronic pain G89.29 and Anxiety F41.9 [place] [address] 59340- 2846 Jan, [place] [address] 47630- 1948 Dec, [place] [address] 72985- 3781 Dec, Gastroesophageal reflux disease without esophagitis K21.9 and Anxiety F41.9 [place] [address] 81814- 3360 Dec, Essential hypertension I10 ; Mixed hyperlipidemia E78.2 ; Type 2 diabetes mellitus with diabetic neuropathy, unspecified E11.40 ; long term 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 Z79.4 ; Chronic pain G89.29 ; HSV (herpes simplex virus) infection B00.9 ; Anxiety F41.9 and Gastroesophageal reflux disease without esophagitis K21.9 [place] [id number] [place] [address] 88905- 8948 Dec, Chronic pain G89.29 and Chronic migraine G43.709 [place] [id number] [place] [address] 16980- 8722 Nov, [place] [address] 59612- 5499 Nov, Essential hypertension I10 and Chronic pain G89.29 [place] [id number] [place] [address] 45830- 9028 Nov, Chronic pain G89.29 ; Essential hypertension I10 and Type 2 diabetes mellitus without complication E11.9 [place] [id number] [place] [address] 95805- 1014 Oct, Chronic pain G89.29 [place] [id number] [place] [address] 90220- 4153 Oct, [place] [id number] [place] [address] 00830- 4528 Sep, Type 2 diabetes mellitus without complication E11.9 ; Essential hypertension I10 ; senior care (current) use of insulin Z79.4 ; Chronic migraine G43.709 ; Chronic pain G89.29 and Acute non-recurrent maxillary sinusitis J01.00 [place] [id number] [place] [address] 77274- 1938 Sep, Encounter for Depo-Provera contraception Z30.42 [place] [id number] [place] [address] 08568- 4669 Sep, Chronic pain G89.29 and Radiculopathy of lumbar region M54.16 [place] [id number] [place] [address] 04337- 5900 Sep, [place] [id number] [place] [address] 13655- 8959 Sep, [place] [id number] [place] [address] 60058- 5459 Aug, Type 2 diabetes mellitus without complication E11.9 [place] [id number] [place] [address] 29973- 4409 Aug, [place] [id number] [place] [address] 28369- 3869 Aug, Radiculopathy of lumbar region M54.16 and Chronic pain G89.29 [facility] [address] [facility] [id number] [place] [address]- 7276 Aug, Type 2 diabetes mellitus without complication E11.9 [facility] [address] [facility] [id number], [place] [address] 2546 Aug, Type 2 diabetes mellitus without complication E11.9 [facility] [address] [facility] [id number], [place] [address]- 4836 Jul, Type 2 diabetes mellitus without complication E11.9 [facility] [address] [facility] [id number] [place] [address]- 9416 Jul, [facility] [address] [facility] [id number], [place] [address]- 8026 Jul, Chronic pain G89.29 [facility] [address] [facility] [id number], [place] [address]- 7316 Jul, [facility] [address] [facility] [id number], [place] [address]- 9406 Jul, [facility] [address] [facility] [id number], [place] [address]- 4708 Jul, Type 2 diabetes mellitus without complication E11.9 [facility] [address] [facility] [id number], [place] [address]- 6246 Jul, [facility] [address] [facility] [id number], [place] [address]- 6419 Jul, Type 2 diabetes mellitus without complication E11.9 [facility] [address] [facility] [id number], [place] [address] 2546 Jul, [facility] [address] [facility] [id number], [place] [address]- 2166 Jul, [facility] [address] [facility] [id number], [place] [address]- 2546 Jul, [facility] [address] [facility] [id number], [place] [address]- 9210 Jun, Type 2 diabetes mellitus without complication E11.9 [facility] [id number] [place] [address] 12264- 0787 Jun, Chronic migraine G43.709 ; Type 2 diabetes mellitus without complication E11.9 ; Calculus of right kidney N20.0 ; Yeast dermatitis B37.2 and HSV (herpes simplex virus) infection B00.9 [facility] [address] 52510- 0497 Jun, Type 2 diabetes mellitus without complication E11.9 [facility] [id number] [place] [address] 90898- 0933 Jun, [place] [address] 35974- 3509 Jun, Radiculopathy of lumbar region M54.16 and Chronic pain G89.29 [place] [address] 98808- 2353 Jun, Encounter for Depo-Provera contraception Z30.42 [address] [address] 70938- 6273 Jun, Type 2 diabetes mellitus without complication E11.9 [facility] [id number] [place] [address] 72309- 0020 Jun, [facility] [id number] [place] [address] 67482 -9635 May, Acute nasopharyngitis (common cold) J00 [facility] [id number] [place] [address] 18949- 1234 May, Chronic pain G89.29 [facility] [address] 28254- 5607 May, Headache following lumbar puncture G97.1 [facility] [address] 14425- 5689 May, Radiculopathy of lumbar region M54.16 [place] [id number] [place] [address] 54115- 2821 Apr, [place] [address] 61458- 4979 Apr, Type 2 diabetes mellitus without complication E11.9 ; Chronic pain G89.29 ; Essential hypertension I10 ; Radiculopathy of lumbar region M54.16 ; Spinal stenosis, lumbar region M48.06 ; Gastroesophageal reflux disease without esophagitis K21.9 ; HSV (herpes simplex virus) infection B00.9 ; Mixed hyperlipidemia E78.2 ; Anxiety F41.9 and Asthma J45.909 [address] [address] 21349- 3573 Apr, Encounter for Depo-Provera contraception Z30.42 [place] [address] 08484- 2104 Apr, Chronic pain G89.29 and Anxiety F41.9 [address] [address] 65802- 6833 Mar, [place] [address] 87280- 4064 Mar, [place] [address] 60684- 9017 Mar, Mixed hyperlipidemia E78.2 [place] [address] 42744- 1276 Mar, Type 2 diabetes mellitus without complication E11.9 ; Chronic pain G89.29 ; Essential hypertension I10 ; Radiculopathy of lumbar region M54.16 ; Spinal stenosis, lumbar region M48.06 ; Gastroesophageal reflux disease without esophagitis K21.9 ; HSV (herpes simplex virus) infection B00.9 ; Mixed hyperlipidemia E78.2 and Anxiety F41.9 [place] [address] 71611- 9128 Mar, [place] [address] [place] [address]- 2143 Mar, [facility] [id number] [place] [address] 03676- 2440 Mar, [facility] [id number] [place] [address] 79669- 8796 February, Chronic pain G89.29 [facility] [id number] [place] [address] 14523- 2019 February, [facility] [id number] [place] [address] 25214- 7048 Jan, Chronic pain G89.29 [facility] [address] 65629- 9538 Jan, Type 2 diabetes mellitus without complication E11.9 [place] [id number] [place] [address] 90088- 0831 Jan, [facility] [id number] [place] [address] 05561- 5401 Jan, [facility] [id number] [place] [address] 83117- 5237 Jan, [facility] [id number] [place] [address] 84726- 5802 Jan, Type 2 diabetes mellitus without complication [...] J01.00 and Encounter for Depo-Provera contraception Z30.42 [facility] [address] [place] [address] 15829- 4966 Dec, Chronic pain G89.29 [facility] [id number] [place] [address] 50071- 4386 Dec, Abnormal ankle brachial index (BERNARDINO) R68.89 [place] [id number] [place] [address] 25000- 6062 Dec, [place] [id number] [place] [address] 78598- 1849 Dec, Routine gynecological examination Z01.419 ; Chronic [...] virus) infection B00.9 and Allergic rhinitis 477.9 [place] [id number] [place] [address] 91248- 3790 Nov, Chronic pain G89.29 [place] [id number] [place] [address] 53248- 9779 02 Nov, 2016 Chronic pain G89.29 ; [...] mucoid otitis media of both ears H65.113 [place] [id number] [place] [address] 80516- 4667 Oct, [place] [id number] [place] [address] 34196- 9569 Oct, Chronic pain G89.29 [place] [id number] [place] [address] 09198- 4546 Oct, Chronic pain G89.29 [place] [address] [place] [address]- 6351 Sep, Chronic pain G89.29 ; Type 2 diabetes mellitus without complication E11.9 ; Essential hypertension I10 ; Radiculopathy of lumbar region M54.16 ; Spinal stenosis, lumbar region M48.06 ; Gastroesophageal reflux disease without esophagitis K21.9 ; Encounter for surveillance of injectable contraceptive Z30.42 ; Bilateral cold feet R20.9 ; Pain of left foot M79.672 and Pain in right foot M79.671 [place] [address] 21131- 5335 Sep, [place] [address] 65599- 6011 Aug, [place] [address] 40028- 6294 Aug, [place] [address] 64567- 2060 Aug, Chronic pain G89.29 ; Type 2 diabetes mellitus without complication E11.9 ; Essential hypertension I10 ; Rash and nonspecific skin eruption R21 and Upper respiratory infection, acute J06.9 [place] [address] 14478- 3603 Aug, [place] [address] 76499- 8630 Aug, [place] [address] 11837- 8549 Jul, [place] [address] 50481- 4386 Jul, Dysuria R30.0 ; Encounter for Depo-Provera contraception Z30.42 ; Herpes simplex B00.9 ; Nausea & vomiting R11.2 and Asthma J45.909 [place] [id number] [place] [address] 16636- 9080 Jun, Dysuria R30.0 [place] [address] [place] [address]- 3539 19 Jun, 2016 Dysuria R30.0 [facility] [id number] [place] [address] 32210- 4171 15 Jun, 2016 [facility] [id number] [place] [address] 47649- 3781 13 Jun, 2016 [facility] [id number] [place] [address] 53136- 9777 May, [facility] [id number] [place] [address] 80807- 8397 May, [facility] [id number] [place] [address] 46524- 6247 May, Chronic pain G89.29 ; Essential hypertension I10 ; Type 2 diabetes mellitus without complication E11.9 ; Edema of both feet R60.0 and Rash and nonspecific skin eruption R21 [place] [id number] [place] [address] 01279- 2997 Apr, [facility] [id number] [place] [address] 05365- 8905 Mar, Carpal tunnel syndrome, left upper limb G56.02 and Carpal tunnel syndrome, right upper limb G56.01 [place] [id number] [place] [address] 03161- 5253 Mar, [facility] [id number] [place] [address] 64473- 1995 Mar, Encounter for Depo-Provera contraception Z30.42 [facility] [id number] [place] [address] 59803- 0354 February, [facility] [id number] [place] [address] 08595- 9547 February, [facility] [id number] [place] [address] 86743- 8471 February, Chronic pain G89.29 ; Essential hypertension I10 ; Type 2 diabetes mellitus without complication E11.9 ; HSV (herpes simplex virus) infection B00.9 ; Anxiety F41.9 ; Hypersomnia G47.10 ; Tobacco abuse Z72.0 ; Hand pain, left M79.642 ; Hand pain, right M79.641 ; Left foot pain M79.672 and Heart palpitations R00.2 [place] [address] 25400- 3020 Jan, [place] [address] 67272- 9937 Jan, [place] [address] 17820- 2034 Jan, [place] [address] 55172- 3219 Jan, [address] 46434- 2119 Jan, Upper respiratory infection J06.9 and Type 2 diabetes mellitus without complication E11.9 [place] [address] 98063- 5426 Dec, [address] 83878- 0140 Dec, Chronic pain G89.29 ; Essential hypertension I10 ; Type 2 diabetes mellitus without complication E11.9 ; HSV (herpes simplex virus) infection B00.9 ; Anxiety F41.9 ; Upper respiratory infection J06.9 ; Hypersomnia G47.10 and Tobacco abuse Z72.0 [id number] [place] [address] 05457- 5665 Dec, Encounter for Depo-Provera contraception Z30.[address] 64738- 6915 Dec, [address] 89407- 3233 Dec, Chronic pain G89.29 ; Sinusitis J32.9 ; Snoring R06.83 and Daytime hypersomnia G47.19 [place] [address] 67667- 6251 Nov, HSV (herpes simplex virus) infection B00.9 ; Encounter for Papanicolaou smear for cervical cancer screening Z12.4 ; Screening for STD sexually transmitted disease Z11.3 and Bartholin's gland cyst N75.0 [place] [address] 41540- 0095 Nov, [place] [address] 97735- 8922 Nov, [place] [address] 18369- 2512 Nov, Essential hypertension I10 ; Type 2 diabetes mellitus without complication E11.9 ; HSV (herpes simplex virus) infection B00.9 ; Spinal stenosis, lumbar region M48.06 and Vaginal yeast infection B37.3 [place] [address] 22036- 9414 Nov, [place] [address] 24842- 8229 Nov, [place] [address] 86091- 5554 Oct, [place] [address] 73278- 7443 Oct, HSV (herpes simplex virus) infection B00.9 ; Yeast infection B37.9 ; Change in bowel habit R19.4 ; Nausea & vomiting R11.2 and Gastroesophageal reflux disease without esophagitis K21.9 [place] [address] 01274- 5756 Oct, [place] [address] 23439- 9594 Oct, Type 2 diabetes mellitus without complication E11.9 ; Essential hypertension I10 and Acute maxillary sinusitis, recurrence not specified J01.00 [place] [id number] [place] [address] 51936- 0218 Oct, [address] 51002- 0814 Oct, [address] [id number] [place] [address] 66918- 6696 Oct, Exposure to head lice Z20.7 ; Blood glucose abnormal R73.09 ; Boil of buttock L02.32 and Type 2 diabetes mellitus without complication E11.[address] 93566- 0979 Oct, [address] 43943- 4635 Sep, [address] 67387- 0882 Sep, [address] 56030- 3569 Aug, Encounter for Depo-Provera contraception Z30.[address] 50631- 7788 Aug, Anxiety F41.9 ; Spinal stenosis, lumbar region M48.06 ; Radiculopathy of lumbar region M54.16 ; Asthma J45.909 ; GERD (gastroesophageal reflux disease) K21.9 ; Essential hypertension I10 and Long-term use of high- risk medication Z79.899 [address] [id number] [place] [address] 83458- 5767 Jul, [address] 08558- 5310 Jun, Hemorrhoid 455.6 [address] [place] [id number] [place] [address] 54959- 1900 Jun, [address] 60240- 3389 Jun, Anxiety 300.00 ; Asthma 493.90 ; Hyperhidrosis 705.21 ; Chest discomfort 786.59 and Upper respiratory infection 465.[address] 78299- 4006 May, Encounter for Depo-Provera contraception V25.[address] 97421- 9937 May, [address] 31911- 0788 May, [address] 55677- 3506 May, Spinal stenosis of lumbar region with radiculopathy 724.02 ; Bulging of intervertebral disc between L4 and L5 722.10 ; GERD ( gastroesophageal reflux disease) 530.81 ; Chronic pain 338.29 ; Declining mobility 799.89 and Epigastric pain 789.[address] 47286- 0107 Apr, [address] 69500- 4766 Apr, Nausea 787.02 and Heart burn 787.1 [place] [id number] [place] [address] 64966- 1643 Mar, Lumbago 724.2 ; Vitamin D deficiency 268.9 ; Anxiety 300.00 ; Allergic rhinitis 477.9 and Contraceptive surveillance V25.40 [address] [id number] [place] [address] 89818- 1164 February, 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 ; Chronic pain 338.29 and Vaginal discharge 623.5 [address] [id number] [place] [address] 96110- 4251 February, [address] 13834- 6683 February, [facility] [place] [facility] [address] [id number] [place] [address]- 5617 14 Jan, 2015 [facility] [place] [facility] [address] [id number] [place] [address]- 7604 Jan, [facility] [place] [facility] [address] [id number] [place] [address]- 3257 Dec, [facility] [place] [facility] [address] [id number] [place] [address]- 7498 Dec, [facility] [place] [facility] [address] [id number] [place] [address]- 10[address] Dec, [facility] [place] [facility] [address] [id number] [place] [address] Dec, [facility] [place] [facility] [address] [id number] [place] [address] Dec, [facility] [place] [facility] [address] [id number] [place] [address] Dec, [facility] [place] [facility] [address] [id number] [place] [address] Dec, [facility] [place] [facility] [address] [id number] [place] [address] Dec, [facility] [place] [facility] [address] [id number] [place] [address] Dec, [facility] [place] [facility] [address] [id number] [place] [address] Dec, [facility] [place] [facility] [address] [id number] [place] [address] Dec, [facility] [place] [facility] [address] [id number] [place] [address] Dec, [facility] [place] [facility] [address] [id number] [place] [address] Nov, [facility] [place] [facility] [address] [id number] [place] [address] 27 Nov, 2014 [facility] [place] [facility] [address] [id number] [place] [address] 24 Nov, 2014 [facility] [place] [facility] [address] [id number] [place] [address] 24 Nov, 2014 [facility] [place] [facility] [address] [facility] [id number] [place] [address] 23 Nov, 2014 [facility] [place] [facility] [address] [id number] [place] [address] 23 Nov, 2014 [facility] [place] [facility] [address] [id number] [place] [address] 16 Nov, 2014 [facility] [place] [facility] [address] [facility] [id number] [place] [address] 16 Nov, 2014 [facility] [place] [facility] [address] [id number] [address] 13 Nov, 2014 [facility] [place] [facility] [address] [facility] [id number] [place] [address] 13 Nov, 2014 [facility] [place] [facility] [address] [facility] [id number] [place] [address]- 4553 13 Nov, 2014 [facility] [place] [facility] [address] [facility] [id number] [place] [address] 13 Nov, 2014 [facility] [place] [facility] [address] [facility] [id number] [place] [address] 2546 13 Nov, 2014 [facility] [place] [facility] [address] [facility] [id number] [place] [address] 2541 13 Nov, 2014 [facility] [place] [facility] [address] [facility] [id number] [place] [address]- 2546 13 Nov, 2014 [facility] [place] [facility] [address] [facility] [id number], [place] [address]46 13 Nov, 2014 [facility] [place] [facility] [address] [facility] [id number], [place] [address]266 Nov, 2014 [facility] [place] [facility] [address] [facility] [id number] [place] [address]- 3392 Nov, 2014 [facility] [place] [facility] [address] [id number] [place] [address]- 1496 Nov, 2014 [facility] [place] [facility] [address] [facility] [id number] [place] [address]- 6245 Nov, 2014 [facility] [place] [facility] [address] [facility] [id number] [place] [address] 1967 Nov, 2014 [facility] [place] [facility] [address] [facility] [id number] [place] [address]- 9505 Nov, 2014 [facility] [place] [facility] [address] [facility] [id number] [place] [address]- 6403 Nov, [facility] [place] [facility] [address] [place] [id number] [address]- [address]378 Oct, [facility] [place] [facility] [address] [facility] [id number] [place] [address]- 0260 Oct, [facility] [place] [facility] [address] [facility] [id number] [place] [address]- 2781 Oct, [facility] [place] [facility] [address] [facility] [id number] [place] [address]- 9120 Oct, [facility] [place] [facility] [address] [facility] [id number], [place] [address]- 8716 Oct, [facility] [place] [facility] [address] [facility] [id number], [place] [address]- 4799 Oct, [facility] [place] [facility] [address] [facility] [id number], [place] [address]- 5856 Oct, [facility] [place] [facility] [address] [facility] [id number], [place] [address]- 7829 Oct, [facility] [place] [facility] [address] [facility] [id number], [place] [address]- 2762 Oct, [facility] [place] [facility] [address] [id number] [place] [address]- 1407 Oct, [facility] [place] [facility] [address] [id number] [place] [address]- 5868 Oct, [facility] [place] [facility] [address] [id number] [place] [address]- 3132 Oct, [facility] [place] [facility] [address] [id number] [place] [address]- 3712 Oct, [facility] [place] [facility] [address] [id number] [place] [address]- 6107 Oct, [facility] [place] [facility] [address] [id number] [place] [address]- 7780 Oct, [facility] [place] [facility] [address] [id number] [place] [address]- 9481 Oct, [facility] [place] [facility] [address] [id number] [place] [address]- 6088 Oct, [facility] [place] [facility] [address] [id number] [place] [address]- 4240 Oct, [facility] [place] [facility] [address] [id number] [place] [address]- 7817 Oct, [facility] [place] [facility] [address] [id number] [place] [address]- 4580 Oct, [facility] [place] [facility] [address] [id number] [place] [address]- 7875 Oct, [facility] [place] [facility] [address] [id number] [place] [address]- 4600 Sep, [facility] [place] [facility] [address] [id number] [place] [address]- 5494 Sep, [facility] [place] [facility] [address] [id number] [place] [address]- 3436 Sep, [facility] [place] [facility] [address] [id number] [place] [address]- 6448 18 Sep, 2014 [facility] [place] [facility] [address] [id number] [place] [address]- 0976 17 Sep, 2014 [facility] [place] [facility] [address] [id number] [place] [address]- 9089 17 Sep, 2014 [facility] [place] [facility] [address] [id number] [place] [address]- 9856 15 Sep, 2014 [facility] [place] [facility] [address] [id number] [place] [address]- 3581 15 Sep, 2014 [facility] [place] [facility] [address] [id number] [place] [address]- 0089 12 Sep, 2014 [facility] [place] [facility] [address] [id number] [place] [address]- 2144 12 Sep, 2014 [facility] [place] [facility] [address] [id number] [place] [address]- 2278 11 Sep, 2014 [facility] [place] [facility] [address] [id number] [place] [address]- 2375 11 Sep, 2014 [facility] [place] [facility] [address] [id number] [place] [address]- 9340 11 Sep, 2014 [facility] [place] [facility] [address] [id number] [place] [address]- 5979 11 Sep, 2014 [facility] [place] [facility] [address] [id number] [place] [address]- 1673 11 Sep, 2014 [facility] [place] [facility] [address] [id number] [place] [address]- 9641 11 Sep, 2014 [facility] [place] [facility] [address] [id number] [place] [address]- 5572 10 Sep, 2014 [facility] [place] [facility] [address] [id number] [place] [address]- 7757 10 Sep, 2014 [facility] [place] [facility] [address] [id number] [place] [address]- 8988 08 Sep, 2014 [facility] [place] [facility] [address] [id number] [place] [address]- 2159 Sep, [facility] [place] [facility] [address] [id number] [place] [address]- 3654 Aug, [facility] [place] [facility] [address] [id number] [place] [address]- 9194 Aug, [facility] [place] [facility] [address] [id number] [place] [address]- 5349 Aug, [facility] [place] [facility] [address] [id number] [place] [address]- 1626 Aug, [facility] [place] [facility] [address] [id number] [place] [address]- 6634 Aug, [facility] [place] [facility] [address] [id number] [place] [address]- 9848 Aug, [facility] [place] [facility] [address] [id number] [place] [address]- 8552 Aug, [facility] [place] [facility] [address] [id number] [place] [address]- 1819 Aug, [facility] [place] [facility] [address] [id number] [place] [address]- 3521 Aug, [facility] [place] [facility] [address] [facility] [id number] [place] [address]- 8264 Jul, [facility] [place] [facility] [address] [id number] [place] [address]- 1605 Jul, [facility] [place] [facility] [address] [id number] [place] [address]- 1650 Jul, [facility] [place] [facility] [address] [id number] [place] [address]- 4001 Jul, [facility] [place] [facility] [address] [id number] [place] [address]- 1914 Jul, [facility] [place] [facility] [address] [id number] [place] [address]- 3083 Jul, [facility] [place] [facility] [address] [id number] [place] [address]- 3614 Jul, [facility] [place] [facility] [address] [id number] [place] [address]- 9290 Jul, [facility] [place] [facility] [address] [id number] [place] [address]- 6878 Jul, [facility] [place] [facility] [address] [id number] [place] [address]- 9239 Jul, [facility] [place] [facility] [address] [id number] [place] [address]- 7584 Jul, [facility] [place] [facility] [address] [id number] [place] [address]- 3106 Jul, [facility] [place] [facility] [address] [id number] [place] [address]- 6476 Jul, [facility] [place] [facility] [address] [id number] [place] [address]- 4082 Jul, [facility] [place] [facility] [address] [id number] [place] [address]- 3896 30 Jun, 2014 [facility] [place] [facility] [address] [id number] [place] [address]- 0913 30 Jun, 2014 [facility] [place] [facility] [address] [id number] [place] [address]- 3242 25 Jun, 2013 [facility] [place] [facility] [address] [id number] [place] [address]- 2547 25 Jun, 2013 [facility] [place] [facility] [address] [id number] [place] [address]- 2548 25 Jun, 2013 [facility] [place] [facility] [address] [id number] [place] [address]- 2546 25 Jun, 2013 [facility] [place] [facility] [address] [id number] [place] [address]- 5370 24 Jun, 2013 [facility] [place] [facility] [address] [id number] [place] [address]- 2546 24 Sep, 2013 [facility] [place] [facility] [address] [id number] [place] [address] 2546 22 Sep, 2013 [facility] [place] [facility] [address] [id number] [place] [address] 2546 22 Sep, 2013 [facility] [place] [facility] [address] [id number] [place] [address] 2546 17 Sep, 2013 [facility] [place] [facility] [address] [id number] [place] [address] 2546 17 Sep, 2013 [facility] [place] [facility] [address] [id number] [place] [address] 2544 16 Sep, 2013 [facility] [place] [facility] [address] [id number] [place] [address]- 2007 16 Sep, 2013 [facility] [place] [facility] [address] [id number] [place] [address]- 2850 15 Jun, 2013 [facility] [place] [facility] [address] [id number] [place] [address]- 2543 15 Jun, 2013 [facility] [place] [facility] [address] [id number] [place] [address] 2544 12 Jun, 2013 [facility] [place] [facility] [address] [id number] [place] [address] 2542 12 Jun, 2013 [facility] [place] [facility] [address] [id number] [place] [address] 2548 11 Jun, 2013 [facility] [place] [facility] [address] [id number] [place] [address]- 2541 11 Sep, 2013 [facility] [place] [facility] [address] [id number] [place] [address] 2546 11 Sep, 2013 [facility] [place] [facility] [address] [id number] [place] [address] 2544 11 Sep, 2013 [facility] [place] [facility] [address] [id number] [place] [address]- 2549 09 Sep, 2013 [facility] [place] [facility] [address] [id number] [place] [address]- 2709 Jun, [facility] [place] [facility] [address] [id number] [place] [address]- 7707 Jun, [facility] [place] [facility] [address] [id number] [place] [address]- 3195 Jun, [facility] [place] [facility] [address] [id number] [place] [address]- 5878 May, [facility] [place] [facility] [address] [id number] [place] [address]- 7717 May, [facility] [place] [facility] [address] [id number] [place] [address]- 9419 May, [facility] [place] [facility] [address] [id number] [place] [address]- 1285 May, [facility] [place] [facility] [address] [id number] [place] [address]- 2841 May, [facility] [place] [facility] [address] [id number] [place] [address]- 3031 May, [facility] [place] [facility] [address] [id number] [place] [address]- 4529 May, [facility] [place] [facility] [address] [id number] [place] [address]- 1579 May, [facility] [place] [facility] [address] [id number] [place] [address]- 7170 May, [facility] [place] [facility] [address] [id number] [place] [address]- 9273 May, [facility] [place] [facility] [address] [id number] [place] [address]- 7595 May, [facility] [place] [facility] [address] [id number] [place] [address]- 2308 May, [facility] [place] [facility] [address] [id number] [place] [address]- 6605 May, [facility] [place] [facility] [address] [id number] [place] [address]- 4480 Apr, [facility] [place] [facility] [address] [id number] [place] [address]- 1202 Apr, [facility] [place] [facility] [address] [id number] [place] [address]- 9185 Apr, [facility] [place] [facility] [address] [id number] [place] [address]- 5439 Apr, [facility] [place] [facility] [address] [id number] [place] [address]- 9733 Apr, [facility] [place] [facility] [address] [id number] [place] [address]- 3349 Mar, [facility] [place] [facility] [address] [id number] [place] [address]- 3276 Mar, [facility] [place] [facility] [address] [id number] [place] [address]- 1731 Mar, [facility] [place] [facility] [address] [id number] [place] [address]- 4473 February, [facility] [place] [facility] [address] [id number] [place] [address]- 6137 February, [facility] [place] [facility] [address] [id number] [place] [address]- 2385 February, [facility] [place] [facility] [address] [id number] [place] [address]- 0731 February, [facility] [place] [facility] [address] [id number] [place] [address]- 4702 February, [facility] [place] [facility] [address] [id number] [place] [address]303 February, [facility] [place] [facility] [address] [id number] [place] [address]013 February, [facility] [place] [facility] [address] [id number] [place] [address]- 8960 February, [facility] [place] [facility] [address] [id number] [place] [address]- 5129 February, [facility] [place] [facility] [address] [id number] [place] [address]- 9312 Jan, [facility] [place] [facility] [address] [facility] [id number] [place] [address]- 6699 Jan, [facility] [place] [facility] [address] [id number] [place] [address]- 6646 Jan, [facility] [place] [facility] [address] [id number] [place] [address]- 7432 Jan, [facility] [place] [facility] [address] [facility] [id number] [place] [address]- 8241 Jan, [facility] [place] [facility] [address] [facility] [id number] [place] [address]- 2045 Dec, [facility] [place] [facility] [address] [facility] [id number] [place] [address]- 0116 Dec, [facility] [place] [facility] [address] [facility] [id number] [place] [address]- 0649 Dec, [facility] [place] [facility] [address] [facility] [id number] [place] [address]- 0240 Dec, [facility] [place] [facility] [address] [id number] [place] [address]- 3785 Dec, [facility] [place] [facility] [address] [facility] [id number] [place] [address]- 5403 Nov, [facility] [place] [facility] [address] [id number] [place] [address]- 8088 Nov, [facility] [place] [facility] [address] [id number] [place] [address]- 8030 Nov, [facility] [place] [facility] [address] [facility] [id number] [place] [address]- 7541 Nov, [facility] [place] [facility] [address] [id number] [place] [address]- 0315 Oct, [facility] [place] [facility] [address] [id number] [place] [address]- 9050 Oct, [facility] [place] [facility] [address] [id number] [place] [address]- 0180 Oct, [facility] [place] [facility] [address] [id number] [place] [address]- 0348 Oct, [facility] [place] [facility] [address] [id number] [place] [address]- 0464 Oct, [facility] [place] [facility] [address] [id number] [place] [address]- 0968 Oct, [facility] [place] [facility] [address] [id number] [place] [address]- 1209 Oct, [facility] [place] [facility] [address] [id number] [place] [address]- 9518 Oct, [facility] [place] [facility] [address] [id number] [place] [address]- 0415 Oct, [facility] [place] [facility] [address] [id number] [place] [address]- 9159 Oct, [facility] [place] [facility] [address] [id number] [place] [address]- 9501 Aug, [facility] [place] [facility] [address] [id number] [place] [address]- 8972 Aug, [facility] [place] [facility] [address] [id number] [place] [address]- 1452 Jul, [facility] [place] [facility] [address] [id number] [place] [address]- 1371 Jul, [facility] [place] [facility] [address] [id number] [place] [address]- 2651 Jul, [facility] [place] [facility] [address] [id number] [place] [address]- 2546 Jul, [facility] [address] [id number] [place] [address]- 0005 Jul, [facility] [place] [facility] [address] [id number] [place] [address]- 7571 Jul, [facility] [place] [facility] [address] [facility] [id number] [place] [address]- 8676 Apr, [facility] [place] [facility] [address] [id number] [place] [address]- 4769 Dec, [facility] [place] [facility] [address] [id number] [place] [address]- 9474 Nov, [facility] [place] [facility] [address] [facility] [id number] [place] [address]- 5566 Nov, [facility] [address] [facility] [id number] [place] [address]- 0976 Nov, [facility] [place] [facility] [address] [facility] [id number] [place] [address]- 7611 Oct, [facility] [place] [facility] [address] [facility] [id number] [place] [address]- 4881 Sep, [facility] [place] [facility] [address] [facility] [id number] [place] [address]- 9383 Sep, [facility] [place] [facility] [address] [facility] [id number] [place] [address]- 7319 Sep, [facility] [place] [facility] [address] [facility] [id number] [place] [address]- 5469 Sep, [facility] [place] [facility] [address] [id number] [place] [address]- 8282 Aug, [facility] [place] [facility] [address] [facility] [id number] [place] [address]- 2879 Aug, [facility] [place] [facility] [address] [facility] [id number] [place] [address]- 3016 Jul, [facility] [place] [facility] [address] [id number] [place] [address]- 9575 12 Jul, 2012 [facility] [place] [facility] [address] [id number] [place] [address]- 2144 28 Jun, 2012 [facility] [place] [facility] [address] [id number] [place] [address]- 5916 26 Jun, 2012 [facility] [place] [facility] [address] [id number] [place] [address]- 2206 24 Jun, 2012 [facility] [place] [facility] [address] [id number] [place] [address]- 3233 24 Jun, 2012 [facility] [place] [facility] [address] [id number] [place] [address]- 7134 Jun, [facility] [place] [facility] [address] [id number] [place] [address]- 4880 31 Apr, 2012 [facility] [place] [facility] [address] [id number] [place] [address]- 5297 30 Apr, 2012 [facility] [place] [facility] [address] [id number] [place] [address]- 3343 Apr, [facility] [place] [facility] [address] [id number] [place] [address] Mar, [facility] [place] [facility] [address] [id number] [place] [address] 1989 Mar, [facility] [place] [facility] [address] [id number] [place] [address] Mar, [facility] [place] [facility] [address] [id number] [place] [address] February, [facility] [place] [facility] [address] [id number] [place] [address] Jan, [facility] [place] [facility] [address] [id number] [place] [address] Dec, [facility] [place] [facility] [address] [id number] [place] [address] Dec, [facility] [place] [facility] [address] [id number] [place] [address] Dec, [facility] [place] [facility] [address] [id number] [place] [address] 1996 19 Dec, 2011 [facility] [place] [facility] [address] [id number] [place] [address] Dec, [facility] [place] [facility] [address] [id number] [place] [address] 14 Nov, 2011 [facility] [place] [facility] [address] [id number] [place] [address] Nov, [facility] [place] [facility] [address] [id number] [place] [address] Oct, [facility] [place] [facility] [address] [id number] [place] [address] Oct, [facility] [place] [facility] [address] [id number] [place] [address] Oct, [facility] [place] [facility] [address] [id number] [place] [address] Sep, [facility] [place] [facility] [address] [id number] [place] [address] Aug, [facility] [place] [facility] [address] [id number], [place] [address] Aug, [facility] [place] [facility] [address] [id number], [place] [address] 28 Jul, 2011 [facility] [place] [facility] [address] [id number] [place] [address] 24 Jul, 2011 [facility] [place] [facility] [address] [id number] [place] [address] 19 Jul, 2011 [facility] [place] [facility] [address] [id number] [place] [address] 13 Jan, 2011 [facility] [place] [facility] [address] [id number] [place] [address] 29 Sep, 2010 [facility] [address] [id number] [place] [address] 27 Sep, 2010 [facility] [place] [facility] [address] [id number] [place] [address] Sep, [facility] [address] [id number] [place] [address] Sep, [facility] [place] [facility] [address] [id number] [place] [address] 06 Sep, 2010 [facility] [address] [id number] [place] [address] 16 Aug, 2010 [facility] [place] [facility] [address] [id number] [place] [address] 16 Aug, 2010 [facility] [address] [id number] [place] [address] 08 Aug, 2010 [facility] [address] [id number] [place] [address] Jul, [facility] [place] [facility] [address] [id number] [place] [address] Jul, [facility] [address] [facility] [id number] [place] [address] Jul, [facility] [place] [facility] [address] [id number] [place] [address] 254 May, [facility] [place] [facility] [address] [id number] [place] [address] 13 Apr, 2010 [facility] [place] [facility] [address] [id number] [place] [address] 18 Dec, 2009 [facility] [place] [facility] [address] [id number] [place] [address] 17 Sep, 2009 [facility] [place] [facility] [address] [id number] [place] [address] Sep, [facility] [address] [facility] [id number], [place] [address] Aug, [facility] [address] [facility] [id number], [place] [address] Aug, [facility] [address] [facility] [id number], [place] [address] Jul, [facility] [address] [facility] [id number], [place] [address] Mar, IMMUNIZATIONS No Known Immunizations SOCIAL HISTORY Never Assessed REASON FOR VISIT Controlled Med Refill 05/16 PLAN OF CARE VITAL SIGNS MEDICATIONS Medication Instructions Dosage Frequency Start Date End Date Duration Status MS Contin 15 mg Orally every 12 hrs as needed must last 28 days 1 tablet Apr, 28 days Active Clonazepam 0.5 MG Orally TID PRN 1 tablet Dec, 28 days Active Lyrica 150 MG Orally Three times a day 1 capsule 8h 28 days Active Nabumetone 500 mg Orally Twice a day 1 tablet 12h 28 days Active Hydrocodone-Acetaminophen 5-325 MG Orally four times a day as needed for pain. Must last 28 days. 1 tablet Apr, 28 days Active RESULTS No Results PROCEDURES No [...] Hospitalization History Surgery(s) only Hospitalization History [facility] and transferred to [facility]-[facility] 2016
--- OUTSIDE RECORDS SUMMARY | 2018-10-08 19:45 | XMS REPORT ---
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 Active 752269913 Problem Edema of both feet R60.0 Active 325232045 Problem Tobacco abuse Z72.0 Active 57765047 Problem Chronic migraine G43.709 Active 18642430 Problem Mixed hyperlipidemia E78.2 Active 020644206 Problem Spinal stenosis, lumbar region M48.06 Active 89410090 Problem Anxiety F41.9 Active 27855262 Problem Radiculopathy of lumbar region M54.16 Active 485029661 Problem Bulging lumbar disc M51.26 Active 304616462 Problem Asthma J45.909 Active 654653503 Problem Essential hypertension I10 Active 09526241 ALLERGIES No Information ENCOUNTERS Encounter Location Date Diagnosis [facility] [id number] [address] Jun, [facility] [id number] [address] May, Chronic pain G89.29 and Anxiety F41.9 [facility] [id number] [address] May, [facility] [id number] [address] 1762 May, Encounter for Depo-Provera contraception Z30.42 [facility] [id number] [place] [address] 33371- 2255 May, [facility] [id number] [place] [address] 26109- 2425 Apr, Chronic pain G89.29 [facility] [id number] [place] [address] 07724- 5387 Apr, Chronic pain G89.29 and Anxiety F41.9 [facility] [address] [address]- 3[address] Mar, HSV (herpes simplex virus) infection B00.9 ; Anxiety F41.9 and Chronic pain G89.29 [facility] [id number] [place] [address] 19031- 3315 Mar, [facility] [address] [address]- 1910 Mar, Chronic pain G89.29 [facility] [address] 12093- 9165 February, Chronic pain G89.29 [facility] [id number] [place] [address] 58161- 4455 Jan, Chronic pain G89.29 [place] [id number] [place] [address] 72801- 5272 Jan, 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 [facility] [id number] [place] [address] 57416- 2695 Jan, Encounter for Depo-Provera contraception Z30.42 [facility] [id number] [place] [address] 63831- 7882 Jan, [facility] [id number] [place] [address] 21643- 7253 Jan, Chronic pain G89.29 and Anxiety F41.9 [facility] [id number] [address] 8434 Jan, [facility] [id number] [place] [address] 42851- 1370 14 Dec, 2017 [facility] [id number] [place] [address] 77153- 5366 14 Dec, 2017 Gastroesophageal reflux disease without esophagitis K21.9 and Anxiety F41.9 [place] [id number] [place] [address] 65568- 8259 14 Dec, 2017 Essential hypertension I10 ; Mixed hyperlipidemia E78.2 ; Type 2 diabetes mellitus with diabetic neuropathy, unspecified E11.40 ; FPC 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 Z79.4 ; Chronic pain G89.29 ; HSV (herpes simplex virus) infection B00.9 ; Anxiety F41.9 and Gastroesophageal reflux disease without esophagitis K21.9 [place] [id number] [place] [address] 82729- 6944 07 Dec, 2017 Chronic pain G89.29 and Chronic migraine G43.709 [place] [id number] [place] [address] 53419- 3372 Nov, [place] [id number] [place] [address] 29228- 5157 08 Nov, 2017 Essential hypertension I10 and Chronic pain G89.29 [place] [id number] [place] [address] 08282- 2746 Nov, Chronic pain G89.29 ; Essential hypertension I10 and Type 2 diabetes mellitus without complication E11.9 [place] [id number] [place] [address] 68488- 3546 Oct, Chronic pain G89.29 [place] [id number] [place] [address] 26973- 1845 Oct, [place] [id number] [place] [address] 99612- 9067 Sep, Type 2 diabetes mellitus without complication E11.9 ; Essential hypertension I10 ; buttermaker continuous churn (current) use of insulin Z79.4 ; Chronic migraine G43.709 ; Chronic pain G89.29 and Acute non-recurrent maxillary sinusitis J01.00 [place] [id number] [place] [address] 10059- 9583 19 Sep, 2017 Encounter for Depo-Provera contraception Z30.42 [place] [id number] [place] [address] 87145- 7832 13 Sep, 2017 Chronic pain G89.29 and Radiculopathy of lumbar region M54.16 [place] [address] 95840- 3796 Sep, [place] [address] 77614- 7143 Sep, [place] [address] 01763- 8988 Aug, Type 2 diabetes mellitus without complication E11.9 [place] [id number] [place] [address] 79402- 6222 Aug, [place] [address] 02778- 8007 Aug, Radiculopathy of lumbar region M54.16 and Chronic pain G89.29 [place] [id number] [place] [address] 89073- 6352 Aug, Type 2 diabetes mellitus without complication E11.9 [place] [address] 66718- 6059 Aug, Type 2 diabetes mellitus without complication E11.9 [place] [address] 30993- 2014 Jul, Type 2 diabetes mellitus without complication E11.9 [place] [id number] [place] [address] 84457- 3008 Jul, [place] [address] 55402- 2405 Jul, Chronic pain G89.29 [facility] [address] [address] 9594 Jul, [facility] [id number] [place] [address] 11966- 4012 Jul, [facility] [id number] [place] [address] 48894- 8913 Jul, Type 2 diabetes mellitus without complication E11.9 [facility] [id number] [place] [address] 84234- 0742 Jul, [facility] [id number] [place] [address] 57788- 4270 Jul, Type 2 diabetes mellitus without complication E11.9 [facility] [id number] [place] [address] 73575- 3296 Jul, [facility] [id number] [place] [address] 87606- 2595 Jul, [facility] [id number] [place] [address] 70338- 8294 Jul, [facility] [id number] [place] [address] 75582- 5495 Jun, Type 2 diabetes mellitus without complication E11.9 [facility] [id number] [place] [address] 61451- 3528 Jun, Chronic migraine G43.709 ; Type 2 diabetes mellitus without complication E11.9 ; Calculus of right kidney N20.0 ; Yeast dermatitis B37.2 and HSV (herpes simplex virus) infection B00.9 [facility] [id number] [place] [address] 46719- 5981 Jun, Type 2 diabetes mellitus without complication E11.9 [facility] [address] [address]- 3886 Jun, [facility] [id number] [place] [address] 01995- 5068 Jun, Radiculopathy of lumbar region M54.16 and Chronic pain G89.29 [place] [address] 50476- 8793 Jun, Encounter for Depo-Provera contraception Z30.42 [place] [address] 38735- 8283 Jun, Type 2 diabetes mellitus without complication E11.9 [place] [address] 17841- 6400 Jun, [facility] [address] 44911 -2287 May, Acute nasopharyngitis (common cold) J00 [place] [address] 27082- 5028 May, Chronic pain G89.29 [place] [address] 02184- 4564 May, Headache following lumbar puncture G97.[address] 43838- 7845 May, Radiculopathy of lumbar region M54.16 [place] [address] 81829- 7657 Apr, [place] [address] 08780- 0102 Apr, Type 2 diabetes mellitus without complication E11.9 ; Chronic pain G89.29 ; Essential hypertension I10 ; Radiculopathy of lumbar region M54.16 ; Spinal stenosis, lumbar region M48.06 ; Gastroesophageal reflux disease without esophagitis K21.9 ; HSV (herpes simplex virus) infection B00.9 ; Mixed hyperlipidemia E78.2 ; Anxiety F41.9 and Asthma J45.909 [place] [id number] [place] [address] 66054- 6238 Apr, Encounter for Depo-Provera contraception Z30.42 [facility] [id number] [place] [address] 81769- 5802 17 Apr, 2017 Chronic pain G89.29 and Anxiety F41.9 [facility] [id number] [place] [address] 61773- 3709 Mar, [place] [id number] [place] [address] 04757- 4754 Mar, [place] [id number] [place] [address] 70581- 6364 Mar, Mixed hyperlipidemia E78.2 [place] [id number] [place] [address] 00820- 6556 Mar, Type 2 diabetes mellitus without complication E11.9 ; Chronic pain G89.29 ; Essential hypertension I10 ; Radiculopathy of lumbar region M54.16 ; Spinal stenosis, lumbar region M48.06 ; Gastroesophageal reflux disease without esophagitis K21.9 ; HSV (herpes simplex virus) infection B00.9 ; Mixed hyperlipidemia E78.2 and Anxiety F41.9 [place] [id number] [place] [address] 47908- 1262 Mar, [place] [id number] [place] [address] 19835- 5140 Mar, [place] [id number] [place] [address] 50088- 7377 Mar, [place] [id number] [place] [address] 79948- 3993 February, Chronic pain G89.29 [place] [id number] [place] [address] 66588- 2758 February, [place] [id number] [place] [address] 48503- 3842 Jan, Chronic pain G89.29 [place] [id number] [place] [address] 91366- 8712 Jan, Type 2 diabetes mellitus without complication E11.9 [place] [address] [address]- 1940 Jan, [place] [id number] [place] [address] 13237- 7197 Jan, [place] [id number] [place] [address] 86830- 0560 Jan, [place] [id number] [place] [address] 88878- 2498 Jan, Type 2 diabetes mellitus without complication [...] J01.00 and Encounter for Depo-Provera contraception Z30.42 [place] [id number] [place] [address] 18803- 1838 28 Dec, 2016 Chronic pain G89.29 [place] [id number] [place] [address] 92824- 2453 Dec, Abnormal ankle brachial index (BERNARDINO) R68.89 [place] [id number] [place] [address] 35196- 9225 Dec, [place] [id number] [place] [address] 00173- 7809 Dec, Routine gynecological examination Z01.419 ; Chronic [...] virus) infection B00.9 and Allergic rhinitis 477.9 [place] [id number] [place] [address] 25229- 7749 Nov, Chronic pain G89.29 [place] [id number] [place] [address] 01249- 7530 02 Nov, 2016 Chronic pain G89.29 ; [...] mucoid otitis media of both ears H65.113 [place] [id number] [place] [address] 42981- 7599 Oct, [place] [id number] [place] [address] 59155- 8831 Oct, Chronic pain G89.29 [place] [id number] [place] [address] 87600- 7009 Oct, Chronic pain G89.29 [place] [id number] [place] [address] 73536- 3785 Sep, Chronic pain G89.29 ; Type 2 diabetes mellitus without complication E11.9 ; Essential hypertension I10 ; Radiculopathy of lumbar region M54.16 ; Spinal stenosis, lumbar region M48.06 ; Gastroesophageal reflux disease without esophagitis K21.9 ; Encounter for surveillance of injectable contraceptive Z30.42 ; Bilateral cold feet R20.9 ; Pain of left foot M79.672 and Pain in right foot M79.671 [place] [id number] [place] [address] 98379- 9356 Sep, [place] [id number] [place] [address] 97612- 7616 Aug, [place] [id number] [place] [address] 56387- 8577 Aug, [facility] [address] 62695- 4744 Aug, Chronic pain G89.29 ; Type 2 diabetes mellitus without complication E11.9 ; Essential hypertension I10 ; Rash and nonspecific skin eruption R21 and Upper respiratory infection, acute J06.9 [facility] [address] 81493- 4590 Aug, [facility] [address] 29319- 2885 Aug, [facility] [address] 16587- 0508 Jul, [facility] [id number] [place] [address] 31466- 6855 Jul, Dysuria R30.0 ; Encounter for Depo-Provera contraception Z30.42 ; Herpes simplex B00.9 ; Nausea & vomiting R11.2 and Asthma J45.909 [facility] [id number] [place] [address] 52992- 3197 21 Jun, 2016 Dysuria R30.0 [facility] [id number] [place] [address] 11076- 0340 19 Jun, 2016 Dysuria R30.0 [facility] [id number] [place] [address] 80382- 9711 15 Jun, 2016 [facility] [id number] [place] [address] 56599- 1314 13 Jun, 2016 [facility] [id number] [place] [address] 49319- 9517 May, [facility] [id number] [place] [address] 56274- 4325 May, [facility] [id number] [place] [address] 16215- 7650 May, Chronic pain G89.29 ; Essential hypertension I10 ; Type 2 diabetes mellitus without complication E11.9 ; Edema of both feet R60.0 and Rash and nonspecific skin eruption R21 [place] [address] 62592- 9807 Apr, [place] [address] 93354- 4118 Mar, Carpal tunnel syndrome, left upper limb G56.02 and Carpal tunnel syndrome, right upper limb G56.01 [place] [address] 64121- 1796 Mar, [place] [address] 91393- 4439 Mar, Encounter for Depo-Provera contraception Z30.[address] 18145- 9344 February, [place] [address] 32039- 3394 February, [place] [address] 35198- 1855 February, Chronic pain G89.29 ; Essential hypertension I10 ; Type 2 diabetes mellitus without complication E11.9 ; HSV (herpes simplex virus) infection B00.9 ; Anxiety F41.9 ; Hypersomnia G47.10 ; Tobacco abuse Z72.0 ; Hand pain, left M79.642 ; Hand pain, right M79.641 ; Left foot pain M79.672 and Heart palpitations R00.2 [place] [id number] [place] [address] 26436- 6508 Jan, [address] 96644- 7752 Jan, [place] [address] 89016- 8636 Jan, [address] [place] [address]- 2901 15 Jan, 2016 [place] [address] 13948- 5893 14 Jan, 2016 Upper respiratory infection J06.9 and Type 2 diabetes mellitus without complication E11.9 [place] [address] 81606- 7286 Dec, [place] [address] 04049- 4232 Dec, Chronic pain G89.29 ; Essential hypertension I10 ; Type 2 diabetes mellitus without complication E11.9 ; HSV (herpes simplex virus) infection B00.9 ; Anxiety F41.9 ; Upper respiratory infection J06.9 ; Hypersomnia G47.10 and Tobacco abuse Z72.0 [place] [address] 54086- 6482 Dec, Encounter for Depo-Provera contraception Z30.42 [place] [address] 98272- 9001 Dec, [place] [address] 74083- 0333 Dec, Chronic pain G89.29 ; Sinusitis J32.9 ; Snoring R06.83 and Daytime hypersomnia G47.19 [place] [address] 57174- 6683 Nov, HSV (herpes simplex virus) infection B00.9 ; Encounter for Papanicolaou smear for cervical cancer screening Z12.4 ; Screening for STD sexually transmitted disease Z11.3 and Bartholin's gland cyst N75.0 [place] [address] 70971- 8199 Nov, [place] [address] 26545- 1826 Nov, [place] [address] 58376- 0853 Nov, Essential hypertension I10 ; Type 2 diabetes mellitus without complication E11.9 ; HSV (herpes simplex virus) infection B00.9 ; Spinal stenosis, lumbar region M48.06 and Vaginal yeast infection B37.3 [place] [id number] [place] [address] 46402- 5288 Nov, [place] [address] 19358- 5779 Nov, [place] [address] 51023- 0670 Oct, [place] [address] 19262- 7789 Oct, HSV (herpes simplex virus) infection B00.9 ; Yeast infection B37.9 ; Change in bowel habit R19.4 ; Nausea & vomiting R11.2 and Gastroesophageal reflux disease without esophagitis K21.9 [place] [address] 82833- 4571 Oct, [place] [address] 71143- 7282 Oct, Type 2 diabetes mellitus without complication E11.9 ; Essential hypertension I10 and Acute maxillary sinusitis, recurrence not specified J01.00 [place] [id number] [place] [address] 23082- 2156 Oct, [place] [id number] [place] [address] 00524- 6263 Oct, [place] [id number] [place] [address] 11926- 4617 Oct, Exposure to head lice Z20.7 ; Blood glucose abnormal R73.09 ; Boil of buttock L02.32 and Type 2 diabetes mellitus without complication E11.9 [place] [id number] [place] [address] 51074- 0213 Oct, [place] [address] [place] [address]- 9350 Sep, [place] [address] 28781- 4637 Sep, [place] [address] [place] [address]3979- 9442 Aug, Encounter for Depo-Provera contraception Z30.42 [place] [address] 40686- 6062 Aug, Anxiety F41.9 ; Spinal stenosis, lumbar region M48.06 ; Radiculopathy of lumbar region M54.16 ; Asthma J45.909 ; GERD (gastroesophageal reflux disease) K21.9 ; Essential hypertension I10 and Long-term use of high- risk medication Z79.899 [place] [address] 22976- 8545 Jul, [place] [address] 02470- 0408 Jun, Hemorrhoid 455.6 [place] [address] 12663- 5841 Jun, [place] [address] 27486- 7721 Jun, Anxiety 300.00 ; Asthma 493.90 ; Hyperhidrosis 705.21 ; Chest discomfort 786.59 and Upper respiratory infection 465.9 [place] [address] 51522- 4199 May, Encounter for Depo-Provera contraception V25.49 [place] [address] 10678- 0908 May, [place] [address] 99414- 4571 May, [place] [address] 86358- 4163 May, Spinal stenosis of lumbar region with radiculopathy 724.02 ; Bulging of intervertebral disc between L4 and L5 722.10 ; GERD ( gastroesophageal reflux disease) 530.81 ; Chronic pain 338.29 ; Declining mobility 799.89 and Epigastric pain 789.06 [facility] [id number] [place] [address] 88475- 8629 Apr, [facility] [address] 56681- 7649 Apr, Nausea 787.02 and Heart burn 787.1 [facility] [address] 63715- 7303 Mar, Lumbago 724.2 ; Vitamin D deficiency 268.9 ; Anxiety 300.00 ; Allergic rhinitis 477.9 and Contraceptive surveillance V25.40 [place] [address] [address] February, 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 ; Chronic pain 338.29 and Vaginal discharge 623.5 [place] [address] [address] February, [facility] [address] [address] February, [facility] [address] [place] [id number] [place] [phone] Jan, [facility] [address] [address] Jan, [facility] [address] [address] Dec, [facility] [address] [address] Dec, [facility] [address] [place] [id number] [place] [address] Dec, [facility] [address] [address] Dec, 2014 [facility] [place] [facility] [address] [id number] [place] [address] 1779 18 Dec, 2014 [facility] [place] [facility] [address] [id number] [place] [address]- 3217 18 Dec, 2014 [facility] [place] [facility] [address] [facility] [id number] [place] [address] 4039 13 Dec, 2014 [facility] [place] [facility] [address] [id number] [place] [address]- 2707 13 Dec, 2014 [facility] [place] [facility] [address] [id number] [place] [address]- 4430 Dec, [facility] [place] [facility] [address] [facility] [id number] [place] [address]- 8244 Dec, [facility] [place] [facility] [address] [facility] [id number] [place] [address]- 6923 Dec, [facility] [place] [facility] [address] [id number] [place] [address]- 0471 Dec, [facility] [place] [facility] [address] [facility] [id number] [place] [address]- 5088 Nov, [facility] [place] [facility] [address] [facility] [id number] [place] [address]- 1549 Nov, [facility] [place] [facility] [address] [facility] [id number] [place] [address]- 9389 24 Nov, 2014 [facility] [place] [facility] [address] [facility] [id number] [address] 24 Nov, 2014 [facility] [place] [facility] [address] [facility] [id number] [place] [address]- 1062 23 Nov, 2014 [facility] [place] [facility] [address] [facility] [id number] [place] [address]- 6404 23 Nov, 2014 [facility] [place] [facility] [address] [facility] [id number] [place] [address]- 7730 16 Nov, 2014 [facility] [place] [facility] [address] [id number] [place] [address]- 1328 16 Nov, 2014 [facility] [place] [facility] [address] [id number] [place] [address]- 1006 13 Nov, 2014 [facility] [place] [facility] [address] [id number] [place] [address] 2546 13 Nov, 2014 [facility] [place] [facility] [address] [facility] [id number] [place] [address]- 2657 13 Nov, 2014 [facility] [place] [facility] [address] [id number] [place] [address]- 7209 13 Nov, 2014 [facility] [place] [facility] [address] [id number] [place] [address]- 9500 13 Nov, 2014 [facility] [place] [facility] [address] [facility] [id number] [place] [address]- 4811 13 Nov, 2014 [facility] [place] [facility] [address] [facility] [id number] [place] [address]- 4507 13 Nov, 2014 [facility] [place] [facility] [address] [facility] [id number] [place] [address]- 0189 13 Nov, 2014 [facility] [place] [facility] [address] [facility] [id number] [place] [address]- 5633 10 Nov, 2014 [facility] [place] [facility] [address] [facility] [id number] [place] [address]- 3729 10 Nov, 2014 [facility] [place] [facility] [address] [facility] [id number] [address]- 2548 Nov, 2014 [facility] [place] [facility] [address] [facility] [id number] [place] [address]- 0418 Nov, 2014 [facility] [place] [facility] [address] [facility] [id number] [place] [address]- 3124 Nov, 2014 [facility] [place] [facility] [address] [facility] [id number] [place] [address]- 1145 Nov, 2014 [facility] [place] [facility] [address] [facility] [id number] [place] [address]- 2879 Nov, [facility] [address] [id number] [place] [address]- 0589 Oct, [facility] [place] [facility] [address] [id number] [place] [address]- 2611 Oct, [facility] [address] [id number] [place] [address]- 9292 Oct, [facility] [address] [id number] [place] [address]- 3287 Oct, [facility] [address] [id number] [place] [address]- 6384 Oct, [facility] [address] [id number] [place] [address]- 7423 Oct, [facility] [address] [id number] [place] [address]- 0532 Oct, [facility] [address] [id number] [place] [address]- 1734 Oct, [facility] [address] [id number] [place] [address]- 1630 Oct, [facility] [address] [id number] [place] [address]- 2992 Oct, [facility] [place] [facility] [address] [id number] [place] [address]- 8516 Oct, [facility] [place] [facility] [address] [id number] [place] [address]- 5876 Oct, [facility] [place] [facility] [address] [id number] [place] [address]- 0139 Oct, [facility] [place] [facility] [address] [id number] [place] [address]- 9422 Oct, [facility] [place] [facility] [address] [id number] [place] [address]- 9860 Oct, [facility] [place] [facility] [address] [id number] [place] [address]- 4411 15 Oct, 2014 [facility] [place] [facility] [address] [id number] [place] [address]- 5496 Oct, [facility] [place] [facility] [address] [id number] [place] [address]- 8735 Oct, [facility] [place] [facility] [address] [id number] [place] [address]- 8895 Oct, [facility] [place] [facility] [address] [id number] [place] [address]- 7929 Oct, [facility] [place] [facility] [address] [id number] [place] [address]- 4349 Oct, [facility] [place] [facility] [address] [id number] [place] [address]- 1236 Sep, [facility] [place] [facility] [address] [id number] [place] [address]- 9444 29 Sep, 2014 [facility] [place] [facility] [address] [id number] [place] [address]- 8457 18 Sep, 2014 [facility] [place] [facility] [address] [id number] [place] [address]- 4376 18 Sep, 2014 [facility] [place] [facility] [address] [id number] [place] [address]- 9319 17 Sep, 2014 [facility] [place] [facility] [address] [id number] [place] [address]- 1118 17 Sep, 2014 [facility] [place] [facility] [address] [id number] [place] [address]- 7043 15 Sep, 2014 [facility] [place] [facility] [address] [id number] [place] [address]- 3032 15 Sep, 2014 [facility] [place] [facility] [address] [id number] [place] [address]- 1156 12 Sep, 2014 [facility] [place] [facility] [address] [id number] [place] [address]- 7654 Sep, [facility] [place] [facility] [address] [id number] [place] [address]- 7002 Sep, [facility] [place] [facility] [address] [id number] [place] [address]- 1122 Sep, [facility] [place] [facility] [address] [facility] [id number] [place] [address]- 3444 Sep, [facility] [place] [facility] [address] [id number] [place] [address]- 6233 Sep, [facility] [place] [facility] [address] [id number] [place] [address]- 7054 Sep, [facility] [place] [facility] [address] [id number] [place] [address]- 0986 Sep, [facility] [place] [facility] [address] [id number] [place] [address]- 7671 Sep, [facility] [place] [facility] [address] [id number] [place] [address]- 8124 Sep, [facility] [place] [facility] [address] [id number] [place] [address]- 4772 Sep, [facility] [place] [facility] [address] [facility] [id number] [place] [address]- 4226 Sep, [facility] [place] [facility] [address] [id number] [place] [address]- 5134 Aug, [facility] [place] [facility] [address] [id number] [place] [address]- 1979 Aug, [facility] [place] [facility] [address] [id number] [place] [address]- 5567 Aug, [facility] [place] [facility] [address] [id number] [place] [address]- 5287 Aug, [facility] [place] [facility] [address] [facility] [id number] [place] [address]- 5194 Aug, [facility] [place] [facility] [address] [id number] [place] [address]- 4978 Aug, [facility] [place] [facility] [address] [id number] [place] [address]- 1459 Aug, [facility] [place] [facility] [address] [id number] [place] [address]- 8232 Aug, [facility] [place] [facility] [address] [id number] [place] [address]- 1380 Aug, [facility] [place] [facility] [address] [id number] [place] [address]- 2636 Jul, [facility] [place] [facility] [address] [id number] [place] [address]- 8599 Jul, [facility] [place] [facility] [address] [id number] [place] [address]- 0685 Jul, [facility] [place] [facility] [address] [id number] [place] [address]- 5622 Jul, [facility] [place] [facility] [address] [id number] [place] [address]- 5048 Jul, [facility] [place] [facility] [address] [id number] [place] [address]- 6369 Jul, [facility] [place] [facility] [address] [id number] [place] [address]- 4190 Jul, [facility] [place] [facility] [address] [id number] [place] [address]- 9344 13 Jul, 2014 [facility] [place] [facility] [address] [id number] [place] [address]- 4759 10 Jul, 2014 [facility] [place] [facility] [address] [id number] [place] [address]- 1635 10 Jul, 2014 [facility] [place] [facility] [address] [id number] [place] [address]- 7311 10 Jul, 2014 [facility] [place] [facility] [address] [id number] [place] [address]- 8915 Jul, [facility] [place] [facility] [address] [id number] [place] [address]- 9717 07 Jul, 2014 [facility] [place] [facility] [address] [id number] [place] [address]- 3110 07 Jul, 2014 [facility] [place] [facility] [address] [id number] [place] [address]- 0334 30 Jun, 2013 [facility] [place] [facility] [address] [id number] [place] [address]- 2655 30 Jun, 2013 [facility] [place] [facility] [address] [id number] [place] [address]- 5394 25 Jun, 2013 [facility] [place] [facility] [address] [id number] [place] [address]- 0835 25 Jun, 2013 [facility] [place] [facility] [address] [id number] [place] [address]- 8842 25 Jun, 2013 [facility] [place] [facility] [address] [id number] [place] [address]- 3270 25 Jun, 2013 [facility] [place] [facility] [address] [id number] [place] [address]- 8011 24 Jun, 2013 [facility] [place] [facility] [address] [id number] [place] [address]- 4449 24 Jun, 2013 [facility] [place] [facility] [address] [id number] [place] [address]- 6021 22 Jun, 2013 [facility] [place] [facility] [address] [id number] [address]- 7991 22 Jun, 2013 [facility] [place] [facility] [address] [id number] [place] [address]- 9404 17 Sep, 2013 [facility] [place] [facility] [address] [id number] [place] [address]- 6267 17 Sep, 2013 [facility] [place] [facility] [address] [id number] [place] [address]- 5030 16 Sep, 2013 [facility] [place] [facility] [address] [id number] [place] [address]- 7462 16 Jun, 2013 [facility] [place] [facility] [address] [id number] [place] [address] 2546 15 Jun, 2013 [facility] [place] [facility] [address] [id number] [place] [address] 2546 15 Jun, 2013 [facility] [place] [facility] [address] [id number] [place] [address] 2547 12 Jun, 2013 [facility] [place] [facility] [address] [id number] [place] [address] 2546 12 Jun, 2013 [facility] [place] [facility] [address] [id number] [place] [address]- 7699 11 Jun, 2013 [facility] [place] [facility] [address] [id number] [place] [address]- 2490 11 Jun, 2013 [facility] [place] [facility] [address] [id number] [place] [address]- 4769 11 Jun, 2013 [facility] [place] [facility] [address] [id number] [place] [address]- 2543 11 Jun, 2013 [facility] [place] [facility] [address] [id number] [place] [address]- 6864 09 Jun, 2013 [facility] [place] [facility] [address] [id number] [place] [address]- 2548 09 Jun, 2013 [facility] [place] [facility] [address] [id number] [place] [address] 2548 Jun, 2013 [facility] [place] [facility] [address] [id number] [place] [address]- 2544 Jun, 2013 [facility] [place] [facility] [address] [id number] [place] [address]- 2944 May, [facility] [place] [facility] [address] [id number] [place] [address]- 7787 May, [facility] [place] [facility] [address] [id number] [place] [address]- 6783 May, [facility] [place] [facility] [address] [id number] [place] [address]- 8344 May, [facility] [place] [facility] [address] [id number] [place] [address]- 0752 May, [facility] [place] [facility] [address] [id number] [place] [address]- 6868 May, [facility] [place] [facility] [address] [id number] [place] [address]- 6374 May, [facility] [place] [facility] [address] [id number] [place] [address]- 5453 May, [facility] [place] [facility] [address] [id number] [place] [address]- 0464 May, [facility] [place] [facility] [address] [id number] [place] [address]- 2100 May, [facility] [place] [facility] [address] [id number] [place] [address]- 7531 May, [facility] [place] [facility] [address] [id number] [place] [address]- 9538 May, [facility] [place] [facility] [address] [id number] [place] [address]- 6675 May, [facility] [place] [facility] [address] [id number] [place] [address]- 7918 Apr, [facility] [place] [facility] [address] [id number] [place] [address]- 4901 Apr, [facility] [place] [facility] [address] [id number] [place] [address]- 1573 Apr, [facility] [place] [facility] [address] [id number] [place] [address]- 8470 Apr, [facility] [place] [facility] [address] [id number] [place] [address]- 9311 Apr, [facility] [place] [facility] [address] [id number] [place] [address]- 7204 Mar, [facility] [place] [facility] [address] [id number] [place] [address]- 5985 Mar, [facility] [place] [facility] [address] [id number] [place] 3867 Mar, [facility] [place] [facility] [address] [id number] [place] [address]- 9461 February, [facility] [place] [facility] [address] [id number] [place] [address]- 4133 February, [facility] [place] [facility] [address] [id number] [place] [address]- 6455 February, [facility] [place] [facility] [address] [id number] [place] [address]- 3446 February, [facility] [place] [facility] [address] [id number] [place] [address]- 6495 February, [facility] [place] [facility] [address] [id number] [place] [address]- 7663 February, [facility] [place] [facility] [address] [id number] [place] [address]- 7864 February, [facility] [place] [facility] [address] [id number] [place] [address]- 0596 February, [facility] [place] [facility] [address] [id number] [place] [address]- 8875 February, [facility] [place] [facility] [address] [id number] [place] [address]- 3197 Jan, [facility] [place] [facility] [address] [id number] [place] [address]- 9923 Jan, [facility] [place] [facility] [address] [id number] [place] [address]- 1880 Jan, [facility] [place] [facility] [address] [id number] [place] [address]- 7259 Jan, [facility] [place] [facility] [address] [id number] [place] [address]- 0871 Jan, [facility] [place] [facility] [address] [id number] [place] [address]- 6548 Dec, [facility] [place] [facility] [address] [id number] [place] [address]- 0789 Dec, [facility] [place] [facility] [address] [id number] [place] [address]- 8635 Dec, [facility] [place] [facility] [address] [id number] [place] [address]- 3567 Dec, [facility] [place] [facility] [address] [id number] [place] [address]- 2831 Dec, [facility] [place] [facility] [address] [id number] [place] [address]- 5621 Nov, [facility] [place] [facility] [address] [id number] [place] [address]- 8687 Nov, [facility] [place] [facility] [address] [id number] [place] [address]- 6128 Nov, [facility] [place] [facility] [address] [id number] [place] [address]- 3609 Nov, [facility] [place] [facility] [address] [id number] [place] [address]- 7927 Oct, [facility] [place] [facility] [address] [id number] [place] [address]- 7982 Oct, [facility] [place] [facility] [address] [id number] [place] [address]- 1111 Oct, [facility] [place] [facility] [address] [id number] [place] [address]- 7257 Oct, [facility] [place] [facility] [address] [id number] [place] [address]- 8425 Oct, [facility] [place] [facility] [address] [id number] [place] [address]- 2920 Oct, [facility] [place] [facility] [address] [id number] [place] [address]- 5267 Oct, [facility] [place] [facility] [address] [id number] [place] [address]- 1436 Oct, [facility] [place] [facility] [address] [id number] [place] [address]- 7161 Oct, [facility] [place] [facility] [address] [id number] [place] [address]- 9953 Oct, [facility] [place] [facility] [address] [id number] [place] [address]- 4163 Aug, [facility] [place] [facility] [address] [id number] [place] [address]- 5900 Aug, [facility] [place] [facility] [address] [facility] [id number] [place] [address]- 7279 Jul, [facility] [place] [facility] [address] [id number] [place] [address]- 8135 Jul, [facility] [place] [facility] [address] [id number] [place] [address] Jul, [facility] [place] [facility] [address] [facility] [id number] [address] Jul, [facility] [place] [facility] [address] [id number] [place] [address] Jul, [facility] [place] [facility] [address] [id number] [address] Jul, [facility] [place] [facility] [address] [id number] [place] [address] Apr, [facility] [place] [facility] [address] [id number] [address] Dec, [facility] [place] [facility] [address] [id number] [address] Nov, [facility] [place] [facility] [address] [id number] [place] [address] 12 Nov, 2012 [facility] [address] [id number] [place] [address] 07 Nov, 2012 [facility] [address] [id number] [place] [address] 16 Oct, 2012 [facility] [address] [id number] [place] [address] Sep, [facility] [address] [id number] [place] [address] Sep, [facility] [address] [id number] [place] [address] Sep, [facility] [address] [id number] [place] [address] Sep, [facility] [address] [facility] [id number] [place] [address] Aug, [facility] [address] [id number] [place] [address] Aug, [facility] [address] [facility] [id number] [place] [address] 69[address] Jul, [facility] [address] [facility] [id number] [place] [address] 3669 Jul, [facility] [address] [id number] [place] [address]42 28 Jun, 2012 [facility] [address] [id number] [place] [address]- [address]40 26 Jun, 2012 [facility] [place] [facility] [address] [id number] [place] [address] 24 Jun, 2012 [facility] [place] [facility] [address] [id number] [place] [address]- 2547 24 Jun, 2012 [facility] [address] [id number] [place] [address] Jun, [facility] [place] [facility] [address] [id number] [place] [address] 3933 Apr, [facility] [place] [facility] [address] [id number] [place] [address] 6126 Apr, [facility] [place] [facility] [address] [id number] [place] [address]156 Apr, [facility] [place] [facility] [address] [id number] [place] [address]66 Mar, [facility] [place] [facility] [address] [id number] [place] [address] 6530 Mar, [facility] [place] [facility] [address] [id number] [place] [address] 2866 Mar, [facility] [place] [facility] [address] [id number] [place] [address]151 February, [facility] [place] [facility] [address] [id number] [place] [address]284 Jan, [facility] [place] [facility] [address] [id number] [place] [address] Dec, [facility] [place] [facility] [address] [id number] [place] [address] Dec, [facility] [place] [facility] [address] [id number] [place] [address]- 6616 Dec, [facility] [place] [facility] [address] [id number] [place] [address] 4116 Dec, [facility] [place] [facility] [address] [id number] [place] [address] 1846 Dec, [facility] [place] [facility] [address] [id number] [place] [address]- [address]76 14 Nov, 2011 [facility] [place] [facility] [address] [id number] [place] [address]- 9436 13 Nov, 2011 [facility] [place] [facility] [address] [id number] [place] [address]- 7698 Oct, [facility] [address] [id number] [place] [address]- [address]78 Oct, [facility] [place] [facility] [address] [id number] [place] [address]- [address]78 Oct, [facility] [address] [id number] [place] [address]- 69[address] Sep, [facility] [place] [facility] [address] [id number] [place] [address] 4428 Aug, [facility] [place] [facility] [address] [id number] [place] [address], [place] [address]- [address]341 Aug, [facility] [place] [facility] [address] [id number] [place] [address]- 1564 28 Jul, 2011 [facility] [address] [id number] [place] [address]- 2470 24 Jul, 2011 [facility] [place] [facility] [address] [id number] [place] [address]- 3034 Jul, [facility] [address] [id number] [place] [address]- 7665 Jan, [facility] [place] [facility] [address] [id number] [place] [address]- 9750 29 Sep, 2010 [facility] [place] [facility] [address] [id number] [place] [address]- 4344 27 Sep, 2010 [facility] [place] [facility] [address] [id number] [place] [address]- 1879 20 Sep, 2010 [facility] [place] [facility] [address] [id number] [place] [address]- 7092 20 Sep, 2010 [facility] [place] [facility] [address] [id number] [place] [address] 06 Sep, 2010 [facility] [place] [facility] [address] [facility] [id number] [place] [address] 16 Aug, 2010 [facility] [place] [facility] [address] [facility] [id number] [address] 16 Aug, 2010 [facility] [address] [facility] [id number] [place] [address] 08 Aug, 2010 [facility] [address] [facility] [id number] [place] [address] Jul, [facility] [address] [facility] [id number] [place] [address] Jul, [facility] [address] [facility] [id number] [place] [address] Jul, [facility] [address] [facility] [id number] [place] [address] May, [facility] [id number] [address] [address] Apr, [facility] [id number] [place] [address]- 6086 Dec, [facility] [id number] [address]18 Sep, [facility] [id number] [place] [address] Sep, [facility] [id number] [address] Aug, [facility] [id number] [address] Aug, [facility] [id number] [address] Jul, [facility] [id number] [id number] Mar, IMMUNIZATIONS No Known Immunizations SOCIAL HISTORY Never Assessed REASON FOR VISIT Controlled Med Refill 04/18 PLAN OF CARE VITAL SIGNS MEDICATIONS Medication Instructions Dosage Frequency Start Date End Date Duration Status Lyrica 150 MG Orally Three times a day 1 capsule 8h 28 days Active MS Contin 15 mg Orally every 12 hrs as needed must last 28 days 1 tablet Mar, 28 days Active Clonazepam 0.5 MG Orally TID PRN 1 tablet Dec, 28 days Active Valacyclovir HCl 1 GM Orally every 24 hrs 1 tablet 30 Active Hydrocodone-Acetaminophen 5-325 MG Orally four times a day as needed for pain. Must last 28 days. 1 tablet Mar, 28 days Active RESULTS No Results PROCEDURES [...] 2015 Hospitalization History Surgery(s) only Hospitalization History [place]-se[facility]/ARF 06/2017
--- OUTSIDE RECORDS SUMMARY | 2018-10-08 19:46 | XMS REPORT ---
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 Active 503303203 Problem Edema of both feet R60.0 Active 229085896 Problem Tobacco abuse Z72.0 Active 70640153 Problem Chronic migraine G43.709 Active 09238788 Problem Mixed hyperlipidemia E78.2 Active 531392872 Problem Spinal stenosis, lumbar region M48.06 Active 31103387 Problem Anxiety F41.9 Active 72098331 Problem Radiculopathy of lumbar region M54.16 Active 256630338 Problem Bulging lumbar disc M51.26 Active 008581958 Problem Asthma J45.909 Active 787445440 Problem Essential hypertension I10 Active 24075402 ALLERGIES No Information ENCOUNTERS Encounter Location Date Diagnosis [facility] [id number] [address] May, [facility] [address] [address] May, Encounter for Depo-Provera contraception Z30.42 [facility] [id number] [address] 9[address] May, [facility] [id number] [address] 9[address] Apr, Chronic pain G89.29 [facility] [id number] [place] [address] 22803- 3513 Apr, Chronic pain G89.29 and Anxiety F41.9 [facility] [address] [address]- 5830 Mar, HSV (herpes simplex virus) infection B00.9 ; Anxiety F41.9 and Chronic pain G89.29 [facility] [address] 10794- 0978 Mar, [facility] [address] 24494- 0618 Mar, Chronic pain G89.29 [facility] [address] 93415- 6732 February, Chronic pain G89.29 [facility] [address] 80705- 7075 Jan, Chronic pain G89.29 [facility] [address] 61330- 5566 Jan, half-way 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 Z79.4 [facility] [address] 21204- 9072 Jan, Encounter for Depo-Provera contraception Z30.42 [facility] [address] 52847- 0873 Jan, [facility] [place] [address] 09290- 5913 Jan, Chronic pain G89.29 and Anxiety F41.9 [facility] [address] 19917- 6386 Jan, [facility] [place] [address] 73912- 1256 Dec, [facility] [place] [address] 11015- 9518 14 Dec, 2017 Gastroesophageal reflux disease without esophagitis K21.9 and Anxiety F41.9 [facility] [address] 01504- 5955 14 Dec, 2017 Essential hypertension I10 ; Mixed hyperlipidemia E78.2 ; Type 2 diabetes mellitus with diabetic neuropathy, unspecified E11.40 ; half-way 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 Z79.4 ; Chronic pain G89.29 ; HSV (herpes simplex virus) infection B00.9 ; Anxiety F41.9 and Gastroesophageal reflux disease without esophagitis K21.9 [facility] [address] 10273- 5667 07 Dec, 2017 Chronic pain G89.29 and Chronic migraine G43.709 [facility] [address] 16582- 8182 Nov, [facility] [place] [address] 68064- 5209 08 Nov, 2017 Essential hypertension I10 and Chronic pain G89.29 [facility] [address] 45287- 9880 05 Nov, 2017 Chronic pain G89.29 ; Essential hypertension I10 and Type 2 diabetes mellitus without complication E11.9 [facility] [id number] [place] [address] 10713- 7847 Oct, Chronic pain G89.29 [facility] [address] 71375- 1940 Oct, [facility] [id number] [place] [address] 91293- 4930 Sep, Type 2 diabetes mellitus without complication E11.9 ; Essential hypertension I10 ; half-way (current) use of insulin Z79.4 ; Chronic migraine G43.709 ; Chronic pain G89.29 and Acute non-recurrent maxillary sinusitis J01.00 [facility] [id number] [place] [address] 46140- 5442 Sep, Encounter for Depo-Provera contraception Z30.42 [facility] [address] [address] 8385 Sep, Chronic pain G89.29 and Radiculopathy of lumbar region M54.16 [facility] [address] [address] 4776 Sep, [facility] [id number] [place] [address] 79761- 5956 Sep, [facility] [id number] [place] [address] 32204- 4487 Aug, Type 2 diabetes mellitus without complication E11.9 [facility] [id number] [place] [address] 34938- 0426 Aug, [facility] [id number] [place] [address] 81610- 2462 Aug, Radiculopathy of lumbar region M54.16 and Chronic pain G89.29 [facility] [id number] [place] [address] 65719- 2746 Aug, Type 2 diabetes mellitus without complication E11.9 [facility] [id number] [place] [address] 03828- 0979 Aug, Type 2 diabetes mellitus without complication E11.9 [facility] [id number] [place] [address] 83651- 3527 Jul, Type 2 diabetes mellitus without complication E11.9 [facility] [address] [address] 8751 Jul, [facility] [id number] [place] [address] 76486- 8050 Jul, Chronic pain G89.29 [facility] [address] [address]- 2720 Jul, [facility] [id number] [place] [address] 97998- 1190 Jul, [facility] [address], [place] [address]- 1192 Jul, Type 2 diabetes mellitus without complication E11.9 [facility] [id number] [place] [address] 27457- 8376 Jul, [facility] [id number] [place] [address] 98368- 3691 Jul, Type 2 diabetes mellitus without complication E11.9 [facility] [id number] [place] [address] 95081- 7331 Jul, [facility] [id number] [place] [address] 96736- 6228 Jul, [facility] [id number] [place] [address] 60135- 3892 Jul, [facility] [id number] [place] [address] 62327- 8335 Jun, Type 2 diabetes mellitus without complication E11.9 [facility] [id number] [place] [address] 90264- 9260 Jun, Chronic migraine G43.709 ; Type 2 diabetes mellitus without complication E11.9 ; Calculus of right kidney N20.0 ; Yeast dermatitis B37.2 and HSV (herpes simplex virus) infection B00.9 [facility] [id number] [place] [address] 11507- 5238 Jun, Type 2 diabetes mellitus without complication E11.9 [facility] [id number] [place] [address] 18062- 0027 Jun, [facility] [id number] [place] [address] 30952- 6858 Jun, Radiculopathy of lumbar region M54.16 and Chronic pain G89.29 [facility] [id number] [place] [address] 15250- 2614 Jun, Encounter for Depo-Provera contraception Z30.42 [facility] [id number] [place] [address] 33399- 4451 20 Jun, 2017 Type 2 diabetes mellitus without complication E11.9 [facility] [id number] [place] [address] 12727- 2059 Jun, [facility] [id number] [place] [address] 11237 -1385 May, Acute nasopharyngitis (common cold) J00 [facility] [facility] [address] 97366- 9113 May, Chronic pain G89.29 [facility] [address] 86699- 8637 May, Headache following lumbar puncture G97.1 [facility] [facility] [address] 03598- 6712 May, Radiculopathy of lumbar region M54.16 [facility] [id number] [place] [address] 65748- 1830 Apr, [facility] [address] 27725- 7899 Apr, Type 2 diabetes mellitus without complication E11.9 ; Chronic pain G89.29 ; Essential hypertension I10 ; Radiculopathy of lumbar region M54.16 ; Spinal stenosis, lumbar region M48.06 ; Gastroesophageal reflux disease without esophagitis K21.9 ; HSV (herpes simplex virus) infection B00.9 ; Mixed hyperlipidemia E78.2 ; Anxiety F41.9 and Asthma J45.909 [facility] [id number] [place] [address] 43415- 7405 Apr, Encounter for Depo-Provera contraception Z30.42 [facility] [id number] [place] [address] 24513- 0402 Apr, Chronic pain G89.29 and Anxiety F41.9 [place] [address] 27334- 5155 Mar, [facility] [id number] [place] [address] 55288- 3506 Mar, [facility] [id number] [place] [address] 60698- 0861 Mar, Mixed hyperlipidemia E78.2 [facility] [id number] [place] [address] 94240- 2812 Mar, Type 2 diabetes mellitus without complication E11.9 ; Chronic pain G89.29 ; Essential hypertension I10 ; Radiculopathy of lumbar region M54.16 ; Spinal stenosis, lumbar region M48.06 ; Gastroesophageal reflux disease without esophagitis K21.9 ; HSV (herpes simplex virus) infection B00.9 ; Mixed hyperlipidemia E78.2 and Anxiety F41.9 [facility] [id number] [place] [address] 18769- 2234 Mar, [facility] [id number] [place] [address] 74160- 7909 Mar, [facility] [id number] [place] [address] 39897- 2075 Mar, [facility] [id number] [place] [address] 23117- 9113 February, Chronic pain G89.29 [facility] [id number] [place] [address] 34960- 8083 February, [facility] [id number] [place] [address] 49798- 5293 Jan, Chronic pain G89.29 [facility] [id number] [place] [address] 21749- 0791 Jan, Type 2 diabetes mellitus without complication E11.9 [facility] [id number] [place] [address] 84775- 6947 Jan, [facility] [id number] [place] [address] 07393- 6158 Jan, [facility] [id number] [place] [address] 90259- 3434 Jan, [address] 62251- 9713 Jan, Type 2 diabetes mellitus without complication [...] J01.00 and Encounter for Depo-Provera contraception Z30.[address] 77434- 5366 Dec, Chronic pain G89.[address] 79818- 0943 Dec, Abnormal ankle brachial index (BERNARDINO) R68.[address] 15987- 6820 Dec, [address] 72382- 6580 Dec, Routine gynecological examination Z01.419 ; Chronic [...] virus) infection B00.9 and Allergic rhinitis 477.[address] 50394- 4062 Nov, Chronic pain G89.[address] 74339- 7545 Nov, Chronic pain G89.29 ; Encounter for [...] mucoid otitis media of both ears H65.113 [place] [address] 12993- 1047 Oct, [address] 14864- 0412 Oct, Chronic pain G89.[address] 01537- 5379 Oct, Chronic pain G89.29 [facility] [place] [address] 62721- 5163 Sep, Chronic pain G89.29 ; Type 2 diabetes mellitus without complication E11.9 ; Essential hypertension I10 ; Radiculopathy of lumbar region M54.16 ; Spinal stenosis, lumbar region M48.06 ; Gastroesophageal reflux disease without esophagitis K21.9 ; Encounter for surveillance of injectable contraceptive Z30.42 ; Bilateral cold feet R20.9 ; Pain of left foot M79.672 and Pain in right foot M79.671 [facility] [place] [id number] [place] [address] 15649- 5944 Sep, [facility] [place] [address] 40447- 3923 Aug, [facility] [place] [address] 59190- 2676 Aug, [facility] [place] [address] 35929- 0738 Aug, Chronic pain G89.29 ; Type 2 diabetes mellitus without complication E11.9 ; Essential hypertension I10 ; Rash and nonspecific skin eruption R21 and Upper respiratory infection, acute J06.9 [facility] [id number] [place] [address] 43228- 6198 Aug, [facility] [id number] [place] [address] 65698- 5275 Aug, [facility] [id number] [place] [address] 96703- 9416 Jul, [facility] [address] 01993- 6082 Jul, Dysuria R30.0 ; Encounter for Depo-Provera contraception Z30.42 ; Herpes simplex B00.9 ; Nausea & vomiting R11.2 and Asthma J45.909 [facility] [id number] [place] [address] 51305- 9480 Jun, Dysuria R30.0 [facility] [address] 30714- 9551 19 Jun, 2016 Dysuria R30.0 [facility] [address] 59470- 6896 15 Jun, 2016 [facility] [id number] [place] [address] 23467- 8656 13 Jun, 2016 [facility] [id number] [place] [address] 75665- 3191 May, [facility] [id number] [place] [address] 65221- 0363 May, [facility] [id number] [place] [address] 39741- 2444 May, Chronic pain G89.29 ; Essential hypertension I10 ; Type 2 diabetes mellitus without complication E11.9 ; Edema of both feet R60.0 and Rash and nonspecific skin eruption R21 [facility] [id number] [place] [address] 49239- 9006 Apr, [facility] [id number] [place] [address] 65348- 1523 30 Mar, 2016 Carpal tunnel syndrome, left upper limb G56.02 and Carpal tunnel syndrome, right upper limb G56.01 [facility] [id number] [place] [address] 07944- 8126 Mar, [facility] [id number] [place] [address] 68264- 2500 17 Mar, 2016 Encounter for Depo-Provera contraception Z30.42 [facility] [id number] [place] [address] 16907- 5073 February, [facility] [id number] [place] [address] 80156- 1361 February, [facility] [id number] [place] [address] 90620- 9455 February, Chronic pain G89.29 ; Essential hypertension I10 ; Type 2 diabetes mellitus without complication E11.9 ; HSV (herpes simplex virus) infection B00.9 ; Anxiety F41.9 ; Hypersomnia G47.10 ; Tobacco abuse Z72.0 ; Hand pain, left M79.642 ; Hand pain, right M79.641 ; Left foot pain M79.672 and Heart palpitations R00.2 [facility] [place] [address] [place] [address] 88076- 5650 Jan, [facility] [id number] [place] [address] 93940- 2133 Jan, [facility] [id number] [place] [address] 64038- 4751 Jan, [facility] [id number] [place] [address] 70042- 5328 Jan, [facility] [place] [address] [place] [address] 65721- 2586 14 Jan, 2016 Upper respiratory infection J06.9 and Type 2 diabetes mellitus without complication E11.9 [facility] [id number] [place] [address] 44656- 8001 Dec, [facility] [address] 88688- 4714 Dec, Chronic pain G89.29 ; Essential hypertension I10 ; Type 2 diabetes mellitus without complication E11.9 ; HSV (herpes simplex virus) infection B00.9 ; Anxiety F41.9 ; Upper respiratory infection J06.9 ; Hypersomnia G47.10 and Tobacco abuse Z72.0 [facility] [place] [address] 72794- 5796 17 Dec, 2015 Encounter for Depo-Provera contraception Z30.[address] 37980- 6744 Dec, [facility] [address] 88886- 1685 Dec, Chronic pain G89.29 ; Sinusitis J32.9 ; Snoring R06.83 and Daytime hypersomnia G47.19 [facility] [id number] [place] [address] 80981- 2554 Nov, HSV (herpes simplex virus) infection B00.9 ; Encounter for Papanicolaou smear for cervical cancer screening Z12.4 ; Screening for STD sexually transmitted disease Z11.3 and Bartholin's gland cyst N75.0 [facility] [id number] [place] [address] 32581- 8902 Nov, [facility] [id number] [place] [address] 48499- 5732 Nov, [address] 63650- 6366 Nov, Essential hypertension I10 ; Type 2 diabetes mellitus without complication E11.9 ; HSV (herpes simplex virus) infection B00.9 ; Spinal stenosis, lumbar region M48.06 and Vaginal yeast infection B37.3 [facility] [address] 81960- 9567 04 Nov, 2015 [facility] [id number] [place] [address] 79132- 4526 Nov, [facility] [id number] [place] [address] 00638- 9181 Oct, [facility] [id number] [place] [address] 64541- 0523 Oct, HSV (herpes simplex virus) infection B00.9 ; Yeast infection B37.9 ; Change in bowel habit R19.4 ; Nausea & vomiting R11.2 and Gastroesophageal reflux disease without esophagitis K21.9 [facility] [id number] [place] [address] 38006- 3183 Oct, [facility] [id number] [place] [address] 44755- 6457 Oct, Type 2 diabetes mellitus without complication E11.9 ; Essential hypertension I10 and Acute maxillary sinusitis, recurrence not specified J01.00 [facility] [id number] [place] [address] 48967- 4676 Oct, [facility] [id number] [place] [address] 60614- 4155 Oct, [facility] [id number] [place] [address] 88072- 2847 Oct, Exposure to head lice Z20.7 ; Blood glucose abnormal R73.09 ; Boil of buttock L02.32 and Type 2 diabetes mellitus without complication E11.9 [facility] [place] [address] [place] [address] 48585- 2996 Oct, [facility] [id number] [place] [address] 50872- 2989 Sep, [facility] [id number] [place] [address] 19667- 3978 Sep, [facility] [id number] [place] [address] 64136- 2664 Aug, Encounter for Depo-Provera contraception Z30.[address] 31548- 0555 Aug, Anxiety F41.9 ; Spinal stenosis, lumbar region M48.06 ; Radiculopathy of lumbar region M54.16 ; Asthma J45.909 ; GERD (gastroesophageal reflux disease) K21.9 ; Essential hypertension I10 and Long-term use of high- risk medication Z79.899 [facility] [place] [address] 15201- 8885 Jul, [address] 50244- 5396 Jun, Hemorrhoid 455.[address] 90925- 5436 Jun, [address] 53165- 1837 Jun, Anxiety 300.00 ; Asthma 493.90 ; Hyperhidrosis 705.21 ; Chest discomfort 786.59 and Upper respiratory infection 465.[address] 61354- 8622 May, Encounter for Depo-Provera contraception V25.[address] 91178- 6876 May, [address] 53564- 5457 May, [facility] [address] 51133- 3527 May, Spinal stenosis of lumbar region with radiculopathy 724.02 ; Bulging of intervertebral disc between L4 and L5 722.10 ; GERD ( gastroesophageal reflux disease) 530.81 ; Chronic pain 338.29 ; Declining mobility 799.89 and Epigastric pain 789.[address] 25806- 3156 Apr, [facility] [address] [address]- 4716 Apr, Nausea 787.02 and Heart burn 787.1 [facility] [id number] [place] [address] 99296- 9916 11 Mar, 2015 Lumbago 724.2 ; Vitamin D deficiency 268.9 ; Anxiety 300.00 ; Allergic rhinitis 477.9 and Contraceptive surveillance V25.40 [facility] [id number] [place] [address] 62813- 5361 February, 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 ; Chronic pain 338.29 and Vaginal discharge 623.5 [facility] [id number] [place] [address] 76880- 8116 February, [facility] [id number] [place] [address] 17790- 2826 February, [facility] [id number] [place] [address] 19559- 9055 Jan, [facility] [id number] [place] [address] 18012- 3651 Jan, [facility] [address] [id number] [address] Dec, [facility] [id number] [place] [address] [id number]- [id number] Dec, [facility] [id number] [place] [address] [id number] Dec, [facility] [id number] [place] [address] 12317- 1173 Dec, [facility] [id number] [place] [address] [id number]- [id number] Dec, [facility] [id number] [place] [id number] 1842 Dec, [facility] [place] [facility] [address] [id number] [place] [address] 13 Dec, 2014 [facility] [place] [facility] [address] [id number] [place] [address]- [address]056 13 Dec, 2014 [facility] [place] [facility] [address] [id number] [place] [address] 0683 12 Dec, 2014 [facility] [place] [facility] [address] [id number] [place] [address]- 5794 Dec, [facility] [place] [facility] [address] [id number] [place] [address]- 1109 Dec, [facility] [place] [facility] [address] [id number] [place] [address]134 Dec, [facility] [place] [facility] [address] [id number] [place] [address]- [address] Nov, [facility] [place] [facility] [address] [id number] [place] [address]- [address] 27 Nov, 2014 [facility] [place] [facility] [address] [id number] [place] [address]- 7150 24 Nov, 2014 [facility] [place] [facility] [address] [id number] [place] [address]- 3727 24 Nov, 2014 [facility] [place] [facility] [address] [id number] [place] [address] 23 Nov, 2014 [facility] [place] [facility] [address] [id number] [place] [address] 6368 23 Nov, 2014 [facility] [place] [facility] [address] [id number] [place] [address]- 0268 16 Nov, 2014 [facility] [place] [facility] [address] [id number] [place] [address] 8189 16 Nov, 2014 [facility] [place] [facility] [address] [id number] [place] [address] 0303 13 Nov, 2014 [facility] [place] [facility] [address] [id number] [place] [address]- 5619 13 Nov, 2014 [facility] [place] [facility] [address] [id number] [place] [address] 5228 Nov, 2014 [facility] [place] [facility] [address] [facility] [id number] [place] [address] 4026 Nov, 2014 [facility] [place] [facility] [address] [facility] [id number] [place] [address]- 9529 Nov, 2014 [facility] [place] [facility] [address] [id number] [place] [address]- 3343 Nov, 2014 [facility] [place] [facility] [address] [facility] [id number] [place] [address]- 6060 Nov, 2014 [facility] [place] [facility] [address] [facility] [id number] [place] [address]- 5396 Nov, 2014 [facility] [place] [facility] [address] [id number] [address] 5010 Nov, 2014 [facility] [place] [facility] [address] [facility] [id number] [place] [address]- 3179 Nov, 2014 [facility] [place] [facility] [address] [id number] [address]- 0365 Nov, 2014 [facility] [place] [facility] [address] [id number] [address]- 6847 Nov, 2014 [facility] [place] [facility] [address] [facility] [id number] [address] 2596 Nov, 2014 [facility] [place] [facility] [address] [facility] [id number] [place] [address]- 2191 Nov, 2014 [facility] [place] [facility] [address] [facility] [id number] [place] [address]- 1333 Nov, 2014 [facility] [place] [facility] [address] [facility] [id number] [place] [address]- 5085 Oct, [facility] [place] [facility] [address] [facility] [id number] [address] Oct, [facility] [place] [facility] [address] [id number] [place] [address]- 0091 Oct, [facility] [place] [facility] [address] [id number] [place] [address]- 5178 Oct, [facility] [place] [facility] [address] [id number] [place] [address]- 9352 Oct, [facility] [place] [facility] [address] [id number] [place] [address]- 8840 Oct, [facility] [place] [facility] [address] [id number] [place] [address]- 4412 Oct, [facility] [place] [facility] [address] [id number] [place] [address]- 8943 Oct, [facility] [place] [facility] [address] [id number] [place] [address]- 6288 Oct, [facility] [place] [facility] [address] [id number] [place] [address]- 2041 Oct, [facility] [place] [facility] [address] [id number] [place] [address]- 2403 Oct, [facility] [place] [facility] [address] [id number] [place] [address]- 0002 Oct, [facility] [place] [facility] [address] [id number] [place] [address]- 6059 Oct, [facility] [place] [facility] [address] [id number] [place] [address]- 8398 Oct, [facility] [place] [facility] [address] [id number] [place] [address]- 3990 Oct, [facility] [place] [facility] [address] [id number] [place] [address]- 4158 Oct, [facility] [place] [facility] [address] [id number] [place] [address]- 7766 Oct, [facility] [place] [facility] [address] [id number] [place] [address]- 6063 Oct, [facility] [address] [id number] [place] [address]- 1090 Oct, [facility] [address] [id number] [place] [address]- 3883 Oct, [facility] [address] [id number] [place] [address]- 5668 Oct, [facility] [address] [id number] [place] [address]- 6229 Sep, [facility] [address] [id number] [place] [address]- 8591 29 Sep, 2014 [facility] [address] [id number] [place] [address]- 0825 Sep, [facility] [address] [id number] [place] [address]- 0278 18 Sep, 2014 [facility] [address] [id number] [place] [address]- 6079 Sep, [facility] [address] [id number] [place] [address]- 2346 17 Sep, 2014 [facility] [address] [id number] [place] [address]- 3754 15 Sep, 2014 [facility] [place] [facility] [address] [id number] [place] [address]- 9938 15 Sep, 2014 [facility] [address] [id number] [place] [address]- 9260 Sep, [facility] [place] [facility] [address] [id number] [place] [address]- 4513 Sep, [facility] [place] [facility] [address] [id number] [place] [address]- 1140 Sep, [facility] [place] [facility] [address] [id number] [place] [address]- 9077 Sep, [facility] [place] [facility] [address] [id number] [place] [address]- 9581 Sep, [facility] [place] [facility] [address] [id number] [place] [address]- 7641 Sep, [facility] [place] [facility] [address] [id number] [place] [address]- 0397 Sep, [facility] [place] [facility] [address] [id number] [place] [address]- 0874 Sep, [facility] [place] [facility] [address] [id number] [place] [address]- 5499 Sep, [facility] [place] [facility] [address] [id number] [place] [address]- 2305 Sep, [facility] [place] [facility] [address] [id number] [place] [address]- 0526 Sep, [facility] [place] [facility] [address] [id number] [place] [address]- 2501 Sep, [facility] [place] [facility] [address] [id number] [place] [address]- 4144 Aug, [facility] [place] [facility] [address] [id number] [place] [address]- 7787 Aug, [facility] [place] [facility] [address] [id number], [place] [address]- 8052 Aug, [facility] [place] [facility] [address] [id number], [place] [address]- 6308 Aug, [facility] [place] [facility] [address] [id number] [place] [address]- 4576 Aug, [facility] [place] [facility] [address] [id number] [place] [address]- 9665 Aug, [facility] [place] [facility] [address] [id number] [place] [address]- 0688 Aug, [facility] [place] [facility] [address] [id number], [place] [address]- 9437 Aug, [facility] [place] [facility] [address] [id number] [place] [address]- 7827 Aug, [facility] [place] [facility] [address] [id number] [place] [address]- 6988 Jul, [facility] [place] [facility] [address] [id number] [place] [address]- 3383 Jul, [facility] [place] [facility] [address] [id number] [place] [address]- 5537 Jul, [facility] [place] [facility] [address] [id number] [place] [address]- 9815 Jul, [facility] [place] [facility] [address] [id number] [place] [address]- 4030 Jul, [facility] [place] [facility] [address] [id number] [place] [address]- 2537 Jul, [facility] [place] [facility] [address] [id number] [place] [address]- 4956 Jul, [facility] [place] [facility] [address] [id number] [place] [address]- 9975 Jul, [facility] [place] [facility] [address] [id number] [place] [address]- 0303 Jul, [facility] [place] [facility] [address] [id number], [place] [address]- 4043 10 Jul, 2013 [facility] [place] [facility] [address] [id number], [place] [address]- 6122 10 Jul, 2014 [facility] [place] [facility] [address] [id number], [place] [address]- 4167 10 Jul, 2014 [facility] [place] [facility] [address] [id number], [place] [address]- 8230 07 Jul, 2013 [facility] [place] [facility] [address] [id number], [place] [address]- 4989 07 Jul, 2013 [facility] [place] [facility] [address] [id number] [place] [address] 2546 30 Sep, 2013 [facility] [place] [facility] [address] [id number] [place] [address] 2546 30 Sep, 2013 [facility] [place] [facility] [address] [id number] [place] [address] 2546 25 Sep, 2013 [facility] [place] [facility] [address] [id number] [place] [address] 2546 25 Sep, 2013 [facility] [place] [facility] [address] [id number] [place] [address] 2546 25 Sep, 2013 [facility] [place] [facility] [address] [id number] [place] [address] 2546 25 Sep, 2013 [facility] [place] [facility] [address] [id number] [place] [address]- 6735 24 Sep, 2013 [facility] [place] [facility] [address] [id number] [place] [address] 2543 24 Sep, 2013 [facility] [place] [facility] [address] [id number] [place] [address] 2543 22 Sep, 2013 [facility] [place] [facility] [address] [id number] [place] [address] 2547 22 Sep, 2013 [facility] [place] [facility] [address] [id number] [place] [address] 254 17 Sep, 2013 [facility] [place] [facility] [address] [id number] [place] [address] 2549 17 Sep, 2013 [facility] [place] [facility] [address] [id number] [place] [address] 2546 16 Sep, 2013 [facility] [place] [facility] [address] [id number] [place] [address] 2546 16 Sep, 2013 [facility] [place] [facility] [address] [id number] [place] [address] 2546 15 Sep, 2013 [facility] [place] [facility] [address] [id number] [place] [address]- 8589 15 Sep, 2013 [facility] [place] [facility] [address] [id number] [place] [address]- 3594 12 Jun, 2013 [facility] [place] [facility] [address] [id number] [place] [address]- 7595 12 Jun, 2013 [facility] [place] [facility] [address] [id number] [place] [address]- 4153 Jun, 2013 [facility] [place] [facility] [address] [id number] [place] [address]- 8807 Jun, 2013 [facility] [place] [facility] [address] [id number] [place] [address]- 6157 Jun, 2013 [facility] [place] [facility] [address] [id number] [place] [address]- 5713 Jun, 2013 [facility] [place] [facility] [address] [id number] [place] [address]- 0701 Jun, 2013 [facility] [place] [facility] [address] [id number] [place] [address]- 0717 Jun, 2013 [facility] [place] [facility] [address] [id number] [place] [address]- 0504 Jun, [facility] [place] [facility] [address] [id number] [place] [address]- 1794 Jun, [facility] [place] [facility] [address] [id number] [place] [address]- 0501 May, [facility] [place] [facility] [address] [id number] [place] [address]- 9561 May, [facility] [place] [facility] [address] [id number] [place] [address]- 5647 May, [facility] [place] [facility] [address] [id number] [place] [address]- 8999 May, [facility] [place] [facility] [address] [id number] [place] [address]- 8233 May, [facility] [place] [facility] [address] [id number] [place] [address]- 0935 May, [facility] [place] [facility] [address] [id number] [place] [address]- 9122 May, [facility] [place] [facility] [address] [id number] [place] [address]- 7501 May, [facility] [place] [facility] [address] [id number] [place] [address]- 1324 May, [facility] [place] [facility] [address] [id number] [place] [address]- 3182 May, [facility] [place] [facility] [address] [id number] [place] [address]- 4102 May, [facility] [place] [facility] [address] [id number] [place] [address]- 2975 May, [facility] [place] [facility] [address] [id number] [place] [address]- 5942 May, [facility] [place] [facility] [address] [id number] [place] [address]- 2276 Apr, [facility] [place] [facility] [address] [id number] [place] [address]- 5763 Apr, [facility] [place] [facility] [address] [id number] [place] [address]- 0444 Apr, [facility] [place] [facility] [address] [id number] [place] [address]- 8416 Apr, [facility] [place] [facility] [address] [id number] [place] [address]- 1449 Apr, [facility] [place] [facility] [address] [id number] [place] [address]- 4501 Mar, [facility] [place] [facility] [address] [id number] [place] [address]- 7494 Mar, [facility] [place] [facility] [address] [id number] [place] [address]- 3632 Mar, [facility] [place] [facility] [address] [id number] [place] [address]- 3256 February, [facility] [place] [facility] [address] [id number] [place] [address]- 4066 February, [facility] [place] [facility] [address] [id number] [place] [address]- 5296 February, [facility] [place] [facility] [address] [id number] [place] [address]- 0052 February, [facility] [place] [facility] [address] [id number] [place] [address]- 2478 February, [facility] [place] [facility] [address] [id number] [place] [address]- 9281 February, [facility] [place] [facility] [address] [id number] [place] [address]- 9920 February, [facility] [place] [facility] [address] [id number] [place] [address]- 2616 February, [facility] [place] [facility] [address] [id number] [place] [address]- 8765 February, [facility] [place] [facility] [address] [id number] [place] [address]- 7889 Jan, [facility] [place] [facility] [address] [id number] [place] [address]- 0005 Jan, [facility] [place] [facility] [address] [id number] [place] [address]- 2744 Jan, [facility] [place] [facility] [address] [id number] [place] [address]- 5254 Jan, [facility] [place] [facility] [address] [id number] [place] [address]- 1377 Jan, [facility] [place] [facility] [address] [id number] [place] [address]- 0253 Dec, [facility] [place] [facility] [address] [id number] [place] [address]- 5293 Dec, [facility] [place] [facility] [address] [id number] [place] [address]- 3854 Dec, [facility] [place] [facility] [address] [id number] [place] [address]- 2066 Dec, [facility] [place] [facility] [address] [id number] [place] [address]- 3356 Dec, [facility] [place] [facility] [address] [id number] [place] [address]- 5391 Nov, [facility] [place] [facility] [address] [id number] [place] [address]- 0707 Nov, [facility] [place] [facility] [address] [id number] [place] [address]- 1697 Nov, [facility] [place] [facility] [address] [id number] [place] [address]- 0780 Nov, [facility] [place] [facility] [address] [id number] [place] [address]- 5985 Oct, [facility] [place] [facility] [address] [id number] [place] [address]- 9591 Oct, [facility] [place] [facility] [address] [id number] [place] [address]- 5383 Oct, [facility] [place] [facility] [address] [id number] [place] [address]- 5704 Oct, [facility] [place] [facility] [address] [id number] [place] [address]- 9779 Oct, [facility] [place] [facility] [address] [id number] [place] [address]- 7932 Oct, [facility] [place] [facility] [address] [id number] [place] [address]- 3708 Oct, [facility] [place] [facility] [address] [id number] [place] [address]- 2927 Oct, [facility] [place] [facility] [address] [id number] [place] [address]- 3141 Oct, [facility] [place] [facility] [address] [id number] [place] [address]- 6205 Oct, [facility] [place] [facility] [address] [id number] [place] [address]- 7593 Aug, [facility] [place] [facility] [address] [id number] [place] [address]- 3384 Aug, [facility] [place] [facility] [address] [id number] [place] [address]- 9966 Jul, [facility] [place] [facility] [address] [id number] [place] [address]- 4829 Jul, [facility] [place] [facility] [address] [id number] [place] [address]- 4580 Jul, [facility] [place] [facility] [address] [id number] [place] [address]- 7600 Jul, [facility] [place] [facility] [address] [id number] [place] [address]- 0380 Jul, [facility] [place] [facility] [address] [id number] [place] [address]- 0747 Jul, [facility] [place] [facility] [address] [id number] [place] [address]- 3713 Apr, [facility] [place] [facility] [address] [id number] [place] [address]- 8567 Dec, [facility] [place] [facility] [address] [id number] [place] [address]- 8609 Nov, [facility] [place] [facility] [address] [id number] [place] [address]- 6538 Nov, [facility] [place] [facility] [address] [id number] [place] [address]- 3166 Nov, [facility] [place] [facility] [address] [id number], [place] [address]- 6826 16 Oct, 2012 [facility] [place] [facility] [address] [id number] [place] 1265 Sep, [facility] [place] [facility] [address] [id number] [place] [address]- 9426 Sep, [facility] [place] [facility] [address] [id number] [place] 0906 Sep, [facility] [place] [facility] [address] [id number] [place] [address]- 5914 Sep, [facility] [place] [facility] [address] [id number] [place] [address]- 2281 Aug, [facility] [place] [facility] [address] [id number] [place] [address]- 5184 Aug, [facility] [place] [facility] [address] [id number] [place] [address]- 7604 Jul, [facility] [place] [facility] [address] [id number] [place] [address]- 8543 Jul, [facility] [place] [facility] [address] [id number] [place] [address]- 6949 28 Jun, 2012 [facility] [place] [facility] [address] [id number] [place] [address]- 7439 26 Jun, 2012 [facility] [place] [facility] [address] [id number] [place] [address]- 5528 24 Jun, 2012 [facility] [place] [facility] [address] [id number] [place] [address] 2548 24 Jun, 2012 [facility] [place] [facility] [address] [id number] [place] [address]- 3560 12 Jun, 2012 [facility] [place] [facility] [address] [id number] [place] [address]- 3806 31 Apr, 2012 [facility] [place] [facility] [address] [id number] [place] [address]- 4260 30 Apr, 2012 [facility] [place] [facility] [address] [id number] [place] [address]- 7260 Apr, [facility] [address] [id number] [place] [address]- 7545 Mar, [facility] [address] [id number] [place] [address]- 8042 Mar, [facility] [address] [id number] [place] [address]- 3614 Mar, [facility] [address] [id number] [place] [address]- 8832 February, [facility] [address] [id number] [place] [address]- 4763 Jan, [facility] [address] [id number] [place] [address] Dec, [facility] [address] [id number] [place] [address] Dec, [facility] [address] [id number] [place] [address] Dec, [facility] [address] [id number] [place] [address] Dec, [facility] [place] [facility] [address] [id number] [place] [address] Dec, [facility] [address] [id number] [place] [address] 14 Nov, 2011 [facility] [address] [id number] [place] [address] Nov, [facility] [address] [id number] [place] [address] Oct, [facility] [address] [id number] [place] [address] Oct, [facility] [address] [id number] [place] [address] Oct, [facility] [place] [facility] [address] [id number] [place] [address] 13 Sep, 2011 [facility] [place] [facility] [address] [id number] [place] [address] 2016 Aug, [facility] [place] [facility] [address] [id number] [place] [address] 10 Aug, 2011 [facility] [place] [facility] [address] [id number] [place] [address] 28 Jul, 2011 [facility] [place] [facility] [address] [id number] [place] [address] 2014 24 Jul, 2011 [facility] [place] [facility] [address] [id number] [place] [address] Jul, [facility] [place] [facility] [address] [id number] [place] [address] Jan, [facility] [place] [facility] [address] [id number] [place] [address] 29 Sep, 2010 [facility] [place] [facility] [address] [id number] [place] [address] Sep, [facility] [place] [facility] [address] [id number] [place] [address] Sep, [facility] [place] [facility] [address] [id number] [place] [address] Sep, [facility] [place] [facility] [address] [id number] [place] [address] 06 Sep, 2010 [facility] [place] [facility] [address] [id number] [place] [address] 16 Aug, 2010 [facility] [place] [facility] [address] [id number] [place] [address] 16 Aug, 2010 [facility] [place] [facility] [address] [id number] [place] [address] 08 Aug, 2010 [facility] [place] [facility] [id number] [address] Jul, [facility] [id number] [address] Jul, [facility] [id number] [address] Jul, [facility] [id number] [address] May, [facility] [address] [id number] [address] Apr, [facility] [id number] [place] [address] Dec, [facility] [id number] [place] [address] Sep, [facility] [id number] [place] [address] Sep, [facility] [id number] [address] Aug, [facility] [id number] [address] Aug, [facility] [id number] [address] Jul, [facility] [id number] [address] 10 Mar, 2009 IMMUNIZATIONS No Known Immunizations SOCIAL HISTORY Never Assessed REASON FOR VISIT 6 mo DM ed f/u PLAN OF CARE VITAL SIGNS MEDICATIONS Unknown [...]
[2018-10-08] MEDS ORDERED: METH100V6 IJ (19:47)
--- OUTSIDE RECORDS SUMMARY | 2018-10-08 19:47 | XMS REPORT ---
Author Author JENNY WOLF [facility] Address [address] [place] [address] Care Team Providers Care Bath Attendant Name Role Phone JENNY WOLF Unavailable PROBLEMS Type Condition ICD9-CM Code [id number] Code Onset Dates Condition Status SNOMED Code Problem Chronic pain G89.29 Active 48436002 Problem HSV (herpes simplex virus) infection B00.9 Active 26040755 Problem Gastroesophageal reflux disease without esophagitis K21.9 Active 051228514 Problem Type 2 diabetes mellitus with diabetic neuropathy, unspecified E11.40 Active 02838016 Problem pen rider 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 Z79.4 Active 530346554 Problem Edema of both feet R60.0 Active 769906867 Problem Tobacco abuse Z72.0 Active 07058977 Problem Chronic migraine G43.709 Active 08262105 Problem Mixed hyperlipidemia E78.2 Active 378171408 Problem Spinal stenosis, lumbar region M48.06 Active 27157007 Problem Anxiety F41.9 Active 78801739 Problem Radiculopathy of lumbar region M54.16 Active 259646369 Problem Bulging lumbar disc M51.26 Active 551220850 Problem Asthma J45.909 Active 335891833 Problem Essential hypertension I10 Active 25211891 ALLERGIES No Information ENCOUNTERS Encounter Location Date Diagnosis [facility] [id number] [address] May, [facility] [id number] [address] May, Encounter for Depo-Provera contraception Z30.42 [facility] [id number] [address] 6[address] May, [facility] [id number], [place] [address] 9293 Apr, Chronic pain G89.29 [facility] [id number] [place] [address] 40593- 9870 Apr, Chronic pain G89.29 and Anxiety F41.9 [facility] [address] 76008- 0591 Mar, HSV (herpes simplex virus) infection B00.9 ; Anxiety F41.9 and Chronic pain G89.29 [place] [address] 23739- 4471 Mar, [place] [address] 20850- 4259 Mar, Chronic pain G89.29 [place] [address] 27973- 5728 February, Chronic pain G89.29 [place] [address] 97672- 4837 Jan, Chronic pain G89.29 [place] [address] 84657- 1044 Jan, [facility] 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 Z79.4 [place] [address] 64344- 0137 Jan, Encounter for Depo-Provera contraception Z30.42 [place] [address] 01883- 8507 Jan, [place] [address] 01462- 0041 Jan, Chronic pain G89.29 and Anxiety F41.9 [place] [address] 21968- 6541 Jan, [place] [address] 69295- 4688 Dec, [place] [address] 36267- 7837 14 Dec, 2017 Gastroesophageal reflux disease without esophagitis K21.9 and Anxiety F41.9 [place] [address] 90956- 4566 14 Dec, 2017 Essential hypertension I10 ; Mixed hyperlipidemia E78.2 ; Type 2 diabetes mellitus with diabetic neuropathy, unspecified E11.40 ; [facility] 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 Z79.4 ; Chronic pain G89.29 ; HSV (herpes simplex virus) infection B00.9 ; Anxiety F41.9 and Gastroesophageal reflux disease without esophagitis K21.9 [place] [address] 80786- 3550 07 Dec, 2017 Chronic pain G89.29 and Chronic migraine G43.709 [place] [address] 58128- 8692 Nov, [place] [address] 38412- 5304 08 Nov, 2017 Essential hypertension I10 and Chronic pain G89.29 [place] [address] 30766- 7248 05 Nov, 2017 Chronic pain G89.29 ; Essential hypertension I10 and Type 2 diabetes mellitus without complication E11.9 [facility] [id number] [place] [address] 45204- 7797 Oct, Chronic pain G89.29 [place] [address] 70427- 4219 Oct, [place] [id number] [place] [address] 86809- 5766 Sep, Type 2 diabetes mellitus without complication E11.9 ; Essential hypertension I10 ; [facility] (current) use of insulin Z79.4 ; Chronic migraine G43.709 ; Chronic pain G89.29 and Acute non-recurrent maxillary sinusitis J01.00 [place] [id number] [place] [address] 58052- 9293 Sep, Encounter for Depo-Provera contraception Z30.42 [facility] [address], [place] [address] 4[address] Sep, Chronic pain G89.29 and Radiculopathy of lumbar region M54.16 [facility] [address], [place] [address] 3116 Sep, [facility] [id number] [place] [address] 05635- 9366 Sep, [facility] [id number] [place] [address] 71984- 6215 Aug, Type 2 diabetes mellitus without complication E11.9 [facility] [id number] [place] [address] 99739- 9096 Aug, [facility] [id number] [place] [address] 50883- 3676 Aug, Radiculopathy of lumbar region M54.16 and Chronic pain G89.29 [facility] [id number] [place] [address] 61523- 8586 Aug, Type 2 diabetes mellitus without complication E11.9 [facility] [id number] [place] [address] 15237- 4703 Aug, Type 2 diabetes mellitus without complication E11.9 [facility] [address] [place] [address] 15786- 1252 Jul, Type 2 diabetes mellitus without complication E11.9 [facility] [address], [place] [address] Jul, [facility] [id number] [place] [address] 87015- 7063 Jul, Chronic pain G89.29 [facility] [address], [place] [address] 8035 Jul, [facility] [id number] [place] [address] 80006- 6758 Jul, [facility] [address], [place] [address] 8246 Jul, Type 2 diabetes mellitus without complication E11.9 [facility] [address] [place] [address] 71327- 5146 Jul, [facility] [id number] [place] [address] 39084- 4778 Jul, Type 2 diabetes mellitus without complication E11.9 [facility] [id number] [place] [address] 02306- 3859 Jul, [facility] [id number] [place] [address] 32060- 7249 Jul, [facility] [id number] [place] [address] 47423- 0606 Jul, [facility] [id number] [place] [address] 38970- 8768 Jun, Type 2 diabetes mellitus without complication E11.9 [facility] [id number] [place] [address] 05778- 4764 Jun, Chronic migraine G43.709 ; Type 2 diabetes mellitus without complication E11.9 ; Calculus of right kidney N20.0 ; Yeast dermatitis B37.2 and HSV (herpes simplex virus) infection B00.9 [facility] [id number] [place] [address] 57695- 0804 Jun, Type 2 diabetes mellitus without complication E11.9 [facility] [address] [place] [address] 41327- 9659 Jun, [place] [id number] [place] [address] 29716- 4027 Jun, Radiculopathy of lumbar region M54.16 and Chronic pain G89.29 [facility] [id number] [place] [address] 77068- 9309 Jun, Encounter for Depo-Provera contraception Z30.42 [place] [id number] [place] [address] 77383- 0995 20 Jun, 2017 Type 2 diabetes mellitus without complication E11.9 [facility] [id number] [place] [address] 96680- 6186 Jun, [facility] [id number] [place] [address] 56092 -7181 May, Acute nasopharyngitis (common cold) J00 [place] [address] 47287- 2125 May, Chronic pain G89.29 [place] [address] 77432- 7259 May, Headache following lumbar puncture G97.1 [place] [address] 55932- 1795 May, Radiculopathy of lumbar region M54.16 [place] [id number] [place] [address] 55613- 9442 Apr, [place] [address] 38516- 3026 Apr, Type 2 diabetes mellitus without complication E11.9 ; Chronic pain G89.29 ; Essential hypertension I10 ; Radiculopathy of lumbar region M54.16 ; Spinal stenosis, lumbar region M48.06 ; Gastroesophageal reflux disease without esophagitis K21.9 ; HSV (herpes simplex virus) infection B00.9 ; Mixed hyperlipidemia E78.2 ; Anxiety F41.9 and Asthma J45.909 [place] [id number] [place] [address] 86381- 3240 Apr, Encounter for Depo-Provera contraception Z30.42 [place] [id number] [place] [address] 08804- 0350 Apr, Chronic pain G89.29 and Anxiety F41.9 [place] [address] 75892- 2965 Mar, [facility] [id number] [place] [address] 59788- 8674 Mar, [facility] [id number] [place] [address] 91770- 7735 Mar, Mixed hyperlipidemia E78.2 [facility] [id number] [place] [address] 09794- 2056 Mar, Type 2 diabetes mellitus without complication E11.9 ; Chronic pain G89.29 ; Essential hypertension I10 ; Radiculopathy of lumbar region M54.16 ; Spinal stenosis, lumbar region M48.06 ; Gastroesophageal reflux disease without esophagitis K21.9 ; HSV (herpes simplex virus) infection B00.9 ; Mixed hyperlipidemia E78.2 and Anxiety F41.9 [facility] [id number] [place] [address] 97220- 1395 Mar, [facility] [id number] [place] [address] 21087- 3536 Mar, [facility] [id number] [place] [address] 90873- 7547 Mar, [facility] [id number] [place] [address] 04856- 7406 February, Chronic pain G89.29 [facility] [id number] [place] [address] 95567- 7554 February, [facility] [id number] [place] [address] 97513- 4095 Jan, Chronic pain G89.29 [facility] [id number] [place] [address] 13773- 2055 Jan, Type 2 diabetes mellitus without complication E11.9 [facility] [id number] [place] [address] 22968- 4728 Jan, [facility] [id number] [place] [address] 53660- 6803 Jan, [place] [id number] [place] [address] 15584- 7580 Jan, [address] 35348- 5339 Jan, Type 2 diabetes mellitus without complication [...] J01.00 and Encounter for Depo-Provera contraception Z30.[address] 95827- 3269 Dec, Chronic pain G89.[address] 24662- 0759 Dec, Abnormal ankle brachial index (BERNARDINO) R68.[address] 65694- 9442 Dec, [address] 62265- 2207 Dec, Routine gynecological examination Z01.419 ; Chronic [...] virus) infection B00.9 and Allergic rhinitis 477.[address] 76223- 2595 Nov, Chronic pain G89.[address] 34012- 1268 Nov, Chronic pain G89.29 ; Encounter for [...] mucoid otitis media of both ears H65.113 [place] [address] 30848- 0173 Oct, [address] 73869- 7052 Oct, Chronic pain G89.[address] 31914- 0381 Oct, Chronic pain G89.29 [place] [address] 93979- 7171 Sep, Chronic pain G89.29 ; Type 2 diabetes mellitus without complication E11.9 ; Essential hypertension I10 ; Radiculopathy of lumbar region M54.16 ; Spinal stenosis, lumbar region M48.06 ; Gastroesophageal reflux disease without esophagitis K21.9 ; Encounter for surveillance of injectable contraceptive Z30.42 ; Bilateral cold feet R20.9 ; Pain of left foot M79.672 and Pain in right foot M79.671 [place] [id number] [place] [address] 74663- 3354 Sep, [place] [address] 72609- 4338 Aug, [place] [address] 70510- 7051 Aug, [place] [address] 54186- 3209 Aug, Chronic pain G89.29 ; Type 2 diabetes mellitus without complication E11.9 ; Essential hypertension I10 ; Rash and nonspecific skin eruption R21 and Upper respiratory infection, acute J06.9 [facility] [id number] [place] [address] 83712- 3632 Aug, [facility] [id number] [place] [address] 81765- 8036 Aug, [facility] [id number] [place] [address] 70976- 0363 Jul, [facility] [address] 58040- 0851 Jul, Dysuria R30.0 ; Encounter for Depo-Provera contraception Z30.42 ; Herpes simplex B00.9 ; Nausea & vomiting R11.2 and Asthma J45.909 [facility] [id number] [place] [address] 15339- 4391 Jun, Dysuria R30.0 [facility] [address] 20572- 1166 19 Jun, 2016 Dysuria R30.0 [facility] [address] 79670- 5759 15 Jun, 2016 [facility] [id number] [place] [address] 77373- 4757 13 Jun, 2016 [facility] [id number] [place] [address] 08131- 2265 May, [facility] [id number] [place] [address] 28462- 3013 May, [facility] [id number] [place] [address] 63756- 7688 May, Chronic pain G89.29 ; Essential hypertension I10 ; Type 2 diabetes mellitus without complication E11.9 ; Edema of both feet R60.0 and Rash and nonspecific skin eruption R21 [facility] [id number] [place] [address] 74153- 0693 Apr, [facility] [id number] [place] [address] 17836- 8864 30 Mar, 2016 Carpal tunnel syndrome, left upper limb G56.02 and Carpal tunnel syndrome, right upper limb G56.01 [facility] [id number] [place] [address] 91729- 5428 Mar, [place] [id number] [place] [address] 16150- 1338 17 Mar, 2016 Encounter for Depo-Provera contraception Z30.42 [place] [id number] [place] [address] 29767- 6933 February, [place] [id number] [place] [address] 85361- 9063 February, [place] [id number] [place] [address] 69949- 3738 February, Chronic pain G89.29 ; Essential hypertension I10 ; Type 2 diabetes mellitus without complication E11.9 ; HSV (herpes simplex virus) infection B00.9 ; Anxiety F41.9 ; Hypersomnia G47.10 ; Tobacco abuse Z72.0 ; Hand pain, left M79.642 ; Hand pain, right M79.641 ; Left foot pain M79.672 and Heart palpitations R00.2 [place] [address] [place] [address] 25013- 8572 Jan, [place] [id number] [place] [address] 00174- 4374 Jan, [place] [id number] [place] [address] 92820- 8105 Jan, [place] [id number] [place] [address] 90541- 1233 Jan, [place] [address] [place] [address] 80551- 6375 14 Jan, 2016 Upper respiratory infection J06.9 and Type 2 diabetes mellitus without complication E11.9 [place] [id number] [place] [address] 68996- 1290 Dec, [place] [address] 66334- 2724 Dec, Chronic pain G89.29 ; Essential hypertension I10 ; Type 2 diabetes mellitus without complication E11.9 ; HSV (herpes simplex virus) infection B00.9 ; Anxiety F41.9 ; Upper respiratory infection J06.9 ; Hypersomnia G47.10 and Tobacco abuse Z72.0 [place] [address] 12508- 0794 17 Dec, 2015 Encounter for Depo-Provera contraception Z30.[address] 73626- 8063 Dec, [place] [address] 19953- 0799 Dec, Chronic pain G89.29 ; Sinusitis J32.9 ; Snoring R06.83 and Daytime hypersomnia G47.19 [place] [id number] [place] [address] 09078- 0109 Nov, HSV (herpes simplex virus) infection B00.9 ; Encounter for Papanicolaou smear for cervical cancer screening Z12.4 ; Screening for STD sexually transmitted disease Z11.3 and Bartholin's gland cyst N75.0 [place] [id number] [place] [address] 73274- 8865 Nov, [place] [id number] [place] [address] 74423- 7567 Nov, [address] 93602- 0405 Nov, Essential hypertension I10 ; Type 2 diabetes mellitus without complication E11.9 ; HSV (herpes simplex virus) infection B00.9 ; Spinal stenosis, lumbar region M48.06 and Vaginal yeast infection B37.3 [place] [address] 49071- 5569 04 Nov, 2015 [facility] [id number] [place] [address] 50929- 7926 Nov, [facility] [id number] [place] [address] 82433- 7101 Oct, [facility] [id number] [place] [address] 97803- 6637 Oct, HSV (herpes simplex virus) infection B00.9 ; Yeast infection B37.9 ; Change in bowel habit R19.4 ; Nausea & vomiting R11.2 and Gastroesophageal reflux disease without esophagitis K21.9 [place] [id number] [place] [address] 13709- 2161 Oct, [place] [id number] [place] [address] 70408- 5688 Oct, Type 2 diabetes mellitus without complication E11.9 ; Essential hypertension I10 and Acute maxillary sinusitis, recurrence not specified J01.00 [place] [id number] [place] [address] 57855- 9325 Oct, [place] [id number] [place] [address] 56162- 8655 Oct, [place] [id number] [place] [address] 46065- 1927 Oct, Exposure to head lice Z20.7 ; Blood glucose abnormal R73.09 ; Boil of buttock L02.32 and Type 2 diabetes mellitus without complication E11.9 [place] [address] [place] [address] 55399- 4369 Oct, [place] [id number] [place] [address] 18933- 1674 Sep, [place] [id number] [place] [address] 00704- 0651 Sep, [facility] [id number] [place] [address] 00809- 9177 Aug, Encounter for Depo-Provera contraception Z30.[address] 57997- 8632 Aug, Anxiety F41.9 ; Spinal stenosis, lumbar region M48.06 ; Radiculopathy of lumbar region M54.16 ; Asthma J45.909 ; GERD (gastroesophageal reflux disease) K21.9 ; Essential hypertension I10 and Long-term use of high- risk medication Z79.899 [place] [address] 76620- 8515 Jul, [address] 95704- 1321 Jun, Hemorrhoid 455.[address] 25057- 6721 Jun, [address] 55689- 8368 Jun, Anxiety 300.00 ; Asthma 493.90 ; Hyperhidrosis 705.21 ; Chest discomfort 786.59 and Upper respiratory infection 465.[address] 93069- 1878 May, Encounter for Depo-Provera contraception V25.[address] 84557- 0212 May, [address] 73987- 4018 May, [place] [address] 83093- 2400 May, Spinal stenosis of lumbar region with radiculopathy 724.02 ; Bulging of intervertebral disc between L4 and L5 722.10 ; GERD ( gastroesophageal reflux disease) 530.81 ; Chronic pain 338.29 ; Declining mobility 799.89 and Epigastric pain 789.[address] 54035- 3286 Apr, [facility] [address] [address]- 0540 Apr, Nausea 787.02 and Heart burn 787.1 [facility] [id number] [place] [address] 30247- 0011 11 Mar, 2015 Lumbago 724.2 ; Vitamin D deficiency 268.9 ; Anxiety 300.00 ; Allergic rhinitis 477.9 and Contraceptive surveillance V25.40 [facility] [id number] [place] [address] 50301- 5303 February, 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 ; Chronic pain 338.29 and Vaginal discharge 623.5 [facility] [id number] [place] [address] 44444- 9346 February, [facility] [id number] [place] [address] 71447- 3646 February, [facility] [id number] [place] [address] 72060- 8718 Jan, [facility] [id number] [place] [address] 83261- 5536 Jan, [facility] [id number] [address]- 9860 Dec, [facility] [address] [place] [address] 52466- 8093 Dec, [facility] [id number] [place] [address] 39227242- 8042 Dec, [facility] [id number] [place] [address] 68919- 9517 Dec, [facility] [id number] [place] [address] 70660- 0686 Dec, [facility] [id number] [place] [address] 78206- 9526 Dec, [facility] [place] [facility] [address] [id number] [place] [address]- 3438 13 Dec, 2014 [facility] [place] [facility] [address] [id number] [place] [address]- 2215 13 Dec, 2014 [facility] [place] [facility] [address] [id number] [place] [address] 12 Dec, 2014 [facility] [place] [facility] [address] [id number] [place] [address] Dec, [facility] [place] [facility] [address] [id number] [place] [address] Dec, [facility] [place] [facility] [address] [id number] [place] [address] Dec, [facility] [place] [facility] [address] [id number] [place] [address] Nov, [facility] [place] [facility] [address] [id number] [place] [address] 27 Nov, 2014 [facility] [place] [facility] [address] [id number] [place] [address] 24 Nov, 2014 [facility] [place] [facility] [address] [id number] [place] [address] 24 Nov, 2014 [facility] [place] [facility] [address] [id number] [place] [address] 23 Nov, 2014 [facility] [place] [facility] [address] [id number] [place] [address] 23 Nov, 2014 [facility] [place] [facility] [address] [id number] [place] [address] 16 Nov, 2014 [facility] [place] [facility] [address] [id number] [place] [address] 16 Nov, 2014 [facility] [place] [facility] [address] [id number] [place] [address] 13 Nov, 2014 [facility] [place] [facility] [address] [id number] [place] [address] 13 Nov, 2014 [facility] [place] [facility] [address] [id number] [place] [address] Nov, 2014 [facility] [place] [facility] [address] [facility] [id number] [place] [address] Nov, 2014 [facility] [place] [facility] [address] [facility] [id number] [place] [address] Nov, 2014 [facility] [place] [facility] [address] [id number] [place] [address] Nov, 2014 [facility] [place] [facility] [address] [facility] [id number] [place] [place] [address] Nov, 2014 [facility] [place] [facility] [address] [facility] [id number] [place] [address] Nov, 2014 [facility] [place] [facility] [address] [id number] [place] [address] Nov, 2014 [facility] [place] [facility] [address] [facility] [id number] [place] [address] 57[address] Nov, 2014 [facility] [place] [facility] [address] [id number] [place] [address] 9[address] Nov, 2014 [facility] [place] [facility] [address] [id number] [place] [address] 7310 Nov, 2014 [facility] [place] [facility] [address] [facility] [id number], [place] [address] Nov, 2014 [facility] [place] [facility] [address] [facility] [id number] [place] [address] 1595 Nov, 2014 [facility] [place] [facility] [address] [facility] [id number] [place] [address]- 9364 Nov, 2014 [facility] [place] [facility] [address] [facility] [id number] [place] [address] 6792 Oct, [facility] [place] [facility] [address] [facility] [id number], [place] [address] 67[address] Oct, [facility] [place] [facility] [address] [id number] [place] [address] 9424 Oct, [facility] [place] [facility] [address] [id number] [place] [address]- 6431 Oct, [facility] [place] [facility] [address] [id number] [place] [address]- 2927 Oct, [facility] [place] [facility] [address] [id number] [place] [address]- 9173 Oct, [facility] [place] [facility] [address] [id number] [place] [address]- 6515 Oct, [facility] [place] [facility] [address] [id number] [place] [address]- 8392 Oct, [facility] [place] [facility] [address] [id number] [place] [address] 1916 Oct, [facility] [place] [facility] [address] [id number] [place] [address]- 3821 Oct, [facility] [place] [facility] [address] [id number] [place] [address]- 7790 Oct, [facility] [place] [facility] [address] [id number] [place] [address]- 7138 Oct, [facility] [place] [facility] [address] [id number] [place] [address]- 2164 Oct, [facility] [place] [facility] [address] [id number] [place] [address]- 5344 Oct, [facility] [place] [facility] [address] [id number] [place] [address]- 4585 Oct, [facility] [place] [facility] [address] [id number] [place] [address]- 9989 Oct, [facility] [place] [facility] [address] [id number] [place] [address]- 8827 Oct, [facility] [place] [facility] [address] [id number] [place] [address]- 9320 Oct, [facility] [address] [id number] [place] [address]- 7719 Oct, [facility] [address] [id number] [place] [address]- 4507 Oct, [facility] [address] [id number] [place] [address]- 9862 Oct, [facility] [address] [id number] [place] [address]- 7583 Sep, [facility] [address] [id number] [place] [address]- 3718 29 Sep, 2014 [facility] [address] [id number] [place] [address]- 0988 Sep, [facility] [address] [id number] [place] [address]- 7113 18 Sep, 2014 [facility] [address] [id number] [place] [address]- 2457 Sep, [facility] [address] [id number] [place] [address]- 5459 17 Sep, 2014 [facility] [address] [id number] [place] [address]- 6713 15 Sep, 2014 [facility] [place] [facility] [address] [id number] [place] [address]- 7046 15 Sep, 2014 [facility] [address] [id number] [place] [address]- 5562 Sep, [facility] [place] [facility] [address] [id number] [place] [address]- 5794 Sep, [facility] [place] [facility] [address] [id number] [place] [address]- 6727 Sep, [facility] [place] [facility] [address] [id number] [place] [address]- 6095 Sep, [facility] [place] [facility] [address] [id number] [place] [address]- 9938 Sep, [facility] [place] [facility] [address] [id number] [place] [address]- 6076 Sep, [facility] [place] [facility] [address] [id number] [place] [address]- 8060 Sep, [facility] [place] [facility] [address] [id number] [place] [address]- 5161 Sep, [facility] [place] [facility] [address] [id number] [place] [address]- 2912 Sep, [facility] [place] [facility] [address] [id number] [place] [address]- 5230 Sep, [facility] [place] [facility] [address] [id number] [place] [address]- 8577 Sep, [facility] [place] [facility] [address] [id number] [place] [address]- 6291 Sep, [facility] [place] [facility] [address] [id number] [place] [address]- 8606 Aug, [facility] [place] [facility] [address] [id number] [place] [address]- 7728 Aug, [facility] [place] [facility] [address] [id number], [place] [address]- 6426 Aug, [facility] [place] [facility] [address] [id number], [place] [address]- 1692 Aug, [facility] [place] [facility] [address] [id number] [place] [address]- 4372 Aug, [facility] [place] [facility] [address] [id number] [place] [address]- 5455 Aug, [facility] [place] [facility] [address] [id number] [place] [address]- 7262 Aug, [facility] [place] [facility] [address] [id number], [place] [address]- 5858 Aug, [facility] [place] [facility] [address] [id number] [place] [address]- 3700 Aug, [facility] [place] [facility] [address] [id number] [place] [address]- 9704 Jul, [facility] [place] [facility] [address] [id number] [place] [address]- 1621 Jul, [facility] [place] [facility] [address] [id number] [place] [address]- 5950 Jul, [facility] [place] [facility] [address] [id number] [place] [address]- 3545 Jul, [facility] [place] [facility] [address] [id number] [place] [address]- 6414 Jul, [facility] [place] [facility] [address] [id number] [place] [address]- 2481 Jul, [facility] [place] [facility] [address] [id number] [place] [address]- 8682 Jul, [facility] [place] [facility] [address] [id number] [place] [address]- 2419 Jul, [facility] [place] [facility] [address] [id number] [place] [address]- 7615 Jul, [facility] [place] [facility] [address] [id number], [place] [address]- 3388 10 Jul, 2013 [facility] [place] [facility] [address] [id number], [place] [address]- 6467 10 Jul, 2014 [facility] [place] [facility] [address] [id number], [place] [address]- 1598 10 Jul, 2014 [facility] [place] [facility] [address] [id number], [place] [address]- 4675 07 Jul, 2013 [facility] [place] [facility] [address] [id number], [place] [address]- 5425 07 Jul, 2013 [facility] [place] [facility] [address] [id number] [place] [address] 2546 30 Sep, 2013 [facility] [place] [facility] [address] [id number] [place] [address] 2546 30 Sep, 2013 [facility] [place] [facility] [address] [id number] [place] [address] 2546 25 Sep, 2013 [facility] [place] [facility] [address] [id number] [place] [address] 2546 25 Sep, 2013 [facility] [place] [facility] [address] [id number] [place] [address] 2546 25 Sep, 2013 [facility] [place] [facility] [address] [id number] [place] [address] 2546 25 Sep, 2013 [facility] [place] [facility] [address] [id number] [place] [address]- 7294 24 Sep, 2013 [facility] [place] [facility] [address] [id number] [place] [address] 2545 24 Sep, 2013 [facility] [place] [facility] [address] [id number] [place] [address] 2544 22 Sep, 2013 [facility] [place] [facility] [address] [id number] [place] [address] 2548 22 Sep, 2013 [facility] [place] [facility] [address] [id number] [place] [address] 2543 17 Sep, 2013 [facility] [place] [facility] [address] [id number] [place] [address] 2547 17 Sep, 2013 [facility] [place] [facility] [address] [id number] [place] [address] 2546 16 Sep, 2013 [facility] [place] [facility] [address] [id number] [place] [address] 2546 16 Sep, 2013 [facility] [place] [facility] [address] [id number] [place] [address] 2546 15 Sep, 2013 [facility] [place] [facility] [address] [id number] [place] [address]- 1290 15 Sep, 2013 [facility] [place] [facility] [address] [id number] [place] [address]- 0080 12 Jun, 2013 [facility] [place] [facility] [address] [id number] [place] [address]- 3249 12 Jun, 2013 [facility] [place] [facility] [address] [id number] [place] [address]- 2383 Jun, 2013 [facility] [place] [facility] [address] [id number] [place] [address]- 5722 Jun, 2013 [facility] [place] [facility] [address] [id number] [place] [address]- 4545 Jun, 2013 [facility] [place] [facility] [address] [id number] [place] [address]- 2765 Jun, 2013 [facility] [place] [facility] [address] [id number] [place] [address]- 6684 Jun, 2013 [facility] [place] [facility] [address] [id number] [place] [address]- 7743 Jun, 2013 [facility] [place] [facility] [address] [id number] [place] [address]- 8235 Jun, [facility] [place] [facility] [address] [id number] [place] [address]- 7798 Jun, [facility] [place] [facility] [address] [id number] [place] [address]- 4154 May, [facility] [place] [facility] [address] [id number] [place] [address]- 9634 May, [facility] [place] [facility] [address] [id number] [place] [address]- 4576 May, [facility] [place] [facility] [address] [id number] [place] [address]- 3623 May, [facility] [place] [facility] [address] [id number] [place] [address]- 3957 May, [facility] [place] [facility] [address] [id number] [place] [address]- 9280 May, [facility] [place] [facility] [address] [id number] [place] [address]- 1798 May, [facility] [place] [facility] [address] [id number] [place] [address]- 0210 May, [facility] [place] [facility] [address] [id number] [place] [address]- 7948 May, [facility] [place] [facility] [address] [id number] [place] [address]- 3727 May, [facility] [place] [facility] [address] [id number] [place] [address]- 5706 May, [facility] [place] [facility] [address] [id number] [place] [address]- 1060 May, [facility] [place] [facility] [address] [id number] [place] [address]- 2909 May, [facility] [place] [facility] [address] [id number] [place] [address]- 3185 Apr, [facility] [place] [facility] [address] [id number] [place] [address]- 7452 Apr, [facility] [place] [facility] [address] [id number] [place] [address]- 7483 Apr, [facility] [place] [facility] [address] [id number] [place] [address]- 1634 Apr, [facility] [place] [facility] [address] [id number] [place] [address]- 0332 Apr, [facility] [place] [facility] [address] [id number] [place] [address]- 3827 Mar, [facility] [place] [facility] [address] [id number] [place] [address]- 8908 Mar, [facility] [place] [facility] [address] [id number] [place] [address]- 1451 Mar, [facility] [place] [facility] [address] [id number] [place] [address]- 7080 February, [facility] [place] [facility] [address] [id number] [place] [address]- 5288 February, [facility] [place] [facility] [address] [id number] [place] [address]- 0648 February, [facility] [place] [facility] [address] [id number] [place] [address]- 9496 February, [facility] [place] [facility] [address] [id number] [place] [address]- 2974 February, [facility] [place] [facility] [address] [id number] [place] [address]- 8448 February, [facility] [place] [facility] [address] [id number] [place] [address]- 1811 February, [facility] [place] [facility] [address] [id number] [place] [address]- 4404 February, [facility] [place] [facility] [address] [id number] [place] [address]- 7767 February, [facility] [place] [facility] [address] [id number] [place] [address]- 3013 Jan, [facility] [place] [facility] [address] [id number] [place] [address]- 8599 Jan, [facility] [place] [facility] [address] [id number] [place] [address]- 2628 Jan, [facility] [place] [facility] [address] [id number] [place] [address]- 5305 Jan, [facility] [place] [facility] [address] [id number] [place] [address]- 7071 Jan, [facility] [place] [facility] [address] [id number] [place] [address]- 6349 Dec, [facility] [place] [facility] [address] [id number] [place] [address]- 3654 Dec, [facility] [place] [facility] [address] [id number] [place] [address]- 3029 Dec, [facility] [place] [facility] [address] [id number] [place] [address]- 8266 Dec, [facility] [place] [facility] [address] [id number] [place] [address]- 6456 Dec, [facility] [place] [facility] [address] [id number] [place] [address]- 5689 Nov, [facility] [place] [facility] [address] [id number] [place] [address]- 7333 Nov, [facility] [place] [facility] [address] [id number] [place] [address]- 6193 Nov, [facility] [place] [facility] [address] [id number] [place] [address]- 6972 Nov, [facility] [place] [facility] [address] [id number] [place] [address]- 0539 Oct, [facility] [place] [facility] [address] [id number] [place] [address]- 3163 Oct, [facility] [place] [facility] [address] [id number] [place] [address]- 2139 Oct, [facility] [place] [facility] [address] [id number] [place] [address]- 3572 Oct, [facility] [place] [facility] [address] [id number] [place] [address]- 2711 Oct, [facility] [place] [facility] [address] [id number] [place] [address]- 3740 Oct, [facility] [place] [facility] [address] [id number] [place] [address]- 0332 Oct, [facility] [place] [facility] [address] [id number] [place] [address]- 9867 Oct, [facility] [place] [facility] [address] [id number] [place] [address]- 2040 Oct, [facility] [place] [facility] [address] [id number] [place] [address]- 8112 Oct, [facility] [place] [facility] [address] [id number] [place] [address]- 5323 Aug, [facility] [place] [facility] [address] [id number] [place] [address]- 7747 Aug, [facility] [place] [facility] [address] [id number] [place] [address]- 2105 Jul, [facility] [place] [facility] [address] [id number] [place] [address]- 1450 Jul, [facility] [place] [facility] [address] [id number] [place] [address]- 7265 Jul, [facility] [place] [facility] [address] [id number] [place] [address]- 7366 Jul, [facility] [place] [facility] [address] [id number] [place] [address]- 8845 Jul, [facility] [place] [facility] [address] [id number] [place] [address]- 0714 Jul, [facility] [place] [facility] [address] [id number] [place] [address]- 9863 Apr, [facility] [place] [facility] [address] [id number] [place] [address]- 4223 Dec, [facility] [place] [facility] [address] [id number] [place] [address]- 9911 Nov, [facility] [place] [facility] [address] [id number] [place] [address]- 2384 Nov, [facility] [place] [facility] [address] [id number] [place] [address]- 3651 Nov, [facility] [place] [facility] [address] [id number], [place] [address]- 5156 16 Oct, 2012 [facility] [place] [facility] [address] [id number] [place] [address]92 Sep, [facility] [place] [facility] [address] [id number] [place] [address]- 5896 Sep, [facility] [place] [facility] [address] [id number] [place] 7146 Sep, [facility] [place] [facility] [address] [id number] [place] [address]- 0788 Sep, [facility] [place] [facility] [address] [id number] [place] [address]- 6696 Aug, [facility] [place] [facility] [address] [id number] [place] [address]- 4880 Aug, [facility] [place] [facility] [address] [id number] [place] [address]- 6840 Jul, [facility] [place] [facility] [address] [id number] [place] [address]- 2805 Jul, [facility] [place] [facility] [address] [id number] [place] [address]- 6619 28 Jun, 2012 [facility] [place] [facility] [address] [id number] [place] [address]- 9006 26 Jun, 2012 [facility] [place] [facility] [address] [id number] [place] [address]- 1763 24 Jun, 2012 [facility] [place] [facility] [address] [id number] [place] [address] 2544 24 Jun, 2012 [facility] [place] [facility] [address] [id number] [place] [address]- 7176 12 Jun, 2012 [facility] [place] [facility] [address] [id number] [place] [address]- 1040 31 Apr, 2012 [facility] [place] [facility] [address] [id number] [place] [address]- 0621 30 Apr, 2012 [facility] [place] [facility] [address] [id number] [place] [address]- 5192 Apr, [facility] [address] [id number] [place] [address]- 1150 Mar, [facility] [address] [id number] [place] [address]- 9655 Mar, [facility] [address] [id number] [place] [address]- 0043 Mar, [facility] [address] [id number] [place] [address]- 8892 February, [facility] [address] [id number] [place] [address]- 2928 Jan, [facility] [address] [id number] [place] [address] Dec, [facility] [address] [id number] [place] [address] Dec, [facility] [address] [id number] [place] [address] Dec, [facility] [address] [id number] [place] [address] Dec, [facility] [address] [id number] [place] [address] Dec, [facility] [address] [id number] [place] [address] 14 Nov, 2011 [facility] [address] [id number] [place] [address] Nov, [facility] [address] [id number] [place] [address] Oct, [facility] [address] [id number] [place] [address] Oct, [facility] [address] [id number] [place] [address] Oct, [facility] [place] [facility] [address] [id number] [place] [address] 13 Sep, 2011 [facility] [place] [facility] [address] [id number] [place] [address] Aug, [facility] [place] [facility] [address] [id number] [place] [address] 10 Aug, 2011 [facility] [place] [facility] [address] [id number] [place] [address] 28 Jul, 2011 [facility] [place] [facility] [address] [id number] [place] [address] 24 Jul, 2011 [facility] [place] [facility] [address] [id number] [place] [address] Jul, [facility] [place] [facility] [address] [id number] [place] [address] Jan, [facility] [place] [facility] [address] [id number] [place] [address] 29 Sep, 2010 [facility] [place] [facility] [address] [id number] [place] [address] Sep, [facility] [place] [facility] [address] [id number] [place] [address] Sep, [facility] [place] [facility] [address] [id number] [place] [address] Sep, [facility] [place] [facility] [address] [id number] [place] [address] 06 Sep, 2010 [facility] [place] [facility] [address] [id number] [place] [address] 16 Aug, 2010 [facility] [place] [facility] [address] [id number] [place] [address] 16 Aug, 2010 [facility] [place] [facility] [address] [id number] [place] [address] 08 Aug, 2010 [facility] [place] [facility] [address] [id number], [place] [address] Jul, [facility] [id number] [address] Jul, [facility] [address] Jul, [facility] [address] [id number] [address] May, [facility] [id number] [place] [id number]- [address] Apr, [facility] [id number] [place] [address]- [address] Dec, [facility] [id number] [place] [address]- [address] Sep, [facility] [id number] [place] [address] 543268- [address] Sep, [facility] [id number] [place] [address]- [address] Aug, [facility] [id number] [place] [address]- [address] Aug, [facility] [id number] [address] Jul, [facility] [address], [place] [address] Mar, IMMUNIZATIONS No Known Immunizations SOCIAL HISTORY Never Assessed REASON FOR VISIT Controlled Med Refill PLAN OF CARE VITAL SIGNS MEDICATIONS Medication Instructions Dosage Frequency Start Date End Date Duration Status MS Contin 15 mg Orally every 12 hrs as needed must last 28 days 1 tablet Mar, 28 days Active Hydrocodone-Acetaminophen 5-325 MG Orally four times a day as needed for pain. Must last 28 days. 1 tablet Mar, 28 days Active Lyrica 150 MG Orally Three times a day 1 capsule 8h 28 days Active RESULTS No Results PROCEDURES [...] 2016 Hospitalization History Surgery(s) only Hospitalization History [place]-sepsis/ARF 06/2017
--- OUTSIDE RECORDS SUMMARY | 2018-10-08 19:48 | XMS REPORT ---
Author Author JENNY WOLF 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 Z79.4 Active 245502786 Problem Edema of both feet R60.0 Active 735641268 Problem Tobacco abuse Z72.0 Active 49425410 Problem Chronic migraine G43.709 Active 67480051 Problem Mixed hyperlipidemia E78.2 Active 292989653 Problem Spinal stenosis, lumbar region M48.06 Active 20097239 Problem Anxiety F41.9 Active 47462980 Problem Radiculopathy of lumbar region M54.16 Active 764446518 Problem Bulging lumbar disc M51.26 Active 723891598 Problem Asthma J45.909 Active 240325178 Problem Essential hypertension I10 Active 68483898 ALLERGIES No Information ENCOUNTERS Encounter Location Date Diagnosis [facility] [id number] [place] [address] 03622- 9972 Apr, Chronic pain G89.29 [facility] [id number] [place] [address] 05408- 3407 24 Apr, 2018 Chronic pain G89.29 and Anxiety F41.9 [facility] [address] [place] [address] 02232- 2931 Mar, HSV (herpes simplex virus) infection B00.9 ; Anxiety F41.9 and Chronic pain G89.29 [facility] [id number] [place] [address] 91117- 0281 Mar, [place] [address] 80051- 9766 Mar, Chronic pain G89.29 [facility] [id number] [place] [address] 86582- 6829 February, Chronic pain G89.29 [place] [address] 52932- 5775 Jan, Chronic pain G89.29 [place] [address] 300116- 8914 Jan, termite helper 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 Z79.4 [place] [address] 99747- 6374 Jan, Encounter for Depo-Provera contraception Z30.42 [place] [address] 49148- 2589 Jan, [place] [address] 21289- 1469 Jan, Chronic pain G89.29 and Anxiety F41.9 [place] [facility] [id number] [place] [address] 17005- 0195 Jan, [facility] [facility] [id number] [place] [address] 60825- 5953 Dec, [place] [id number] [place] [address] 23443- 2367 Dec, Gastroesophageal reflux disease without esophagitis K21.9 and Anxiety F41.9 [place] [id number] [place] [address] 47638- 2326 Dec, Essential hypertension I10 ; Mixed hyperlipidemia E78.2 ; Type 2 diabetes mellitus with diabetic neuropathy, unspecified E11.40 ; termite helper 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 Z79.4 ; Chronic pain G89.29 ; HSV (herpes simplex virus) infection B00.9 ; Anxiety F41.9 and Gastroesophageal reflux disease without esophagitis K21.9 [place] [id number] [place] [address] 13177- 4097 Dec, Chronic pain G89.29 and Chronic migraine G43.709 [place] [address] 95976- 5466 Nov, [place] [address] 07763- 3554 Nov, Essential hypertension I10 and Chronic pain G89.[address] 73773- 1327 Nov, Chronic pain G89.29 ; Essential hypertension I10 and Type 2 diabetes mellitus without complication E11.9 [place] [address] 42033- 7650 Oct, Chronic pain G89.29 [place] [address] 05884- 1862 Oct, [place] [address] 37897- 8836 Sep, Type 2 diabetes mellitus without complication E11.9 ; Essential hypertension I10 ; penitentiary (current) use of insulin Z79.4 ; Chronic migraine G43.709 ; Chronic pain G89.29 and Acute non-recurrent maxillary sinusitis J01.00 [place] [address] 32404- 6444 Sep, Encounter for Depo-Provera contraception Z30.42 [place] [address] 13271- 4418 Sep, Chronic pain G89.29 and Radiculopathy of lumbar region M54.16 [place] [address] 08616- 9566 Sep, [place] [address] 36277- 5052 Sep, [facility] [address] [address]- 3055 Aug, Type 2 diabetes mellitus without complication E11.9 [facility] [address] [facility] [id number] [address]- 9196 Aug, [facility] [id number] [address]- 8188 Aug, Radiculopathy of lumbar region M54.16 and Chronic pain G89.29 [facility] [address] [address]- 1813 Aug, Type 2 diabetes mellitus without complication E11.9 [facility] [address] [address]- 0386 Aug, Type 2 diabetes mellitus without complication E11.9 [facility] [address] [address]- 6447 Jul, Type 2 diabetes mellitus without complication E11.9 [facility] [address] [address]- 1448 Jul, [facility] [address] [place] [address] 42748- 7946 Jul, Chronic pain G89.29 [facility] [address] [address]- 4543 Jul, [facility] [address] [address]- 1211 Jul, [facility] [address] [address]- 5974 Jul, Type 2 diabetes mellitus without complication E11.9 [facility] [id number] [address]- 1986 Jul, [facility] [address] [address]- 5400 Jul, Type 2 diabetes mellitus without complication E11.9 [facility] [id number] [place] [address] 01274- 0104 Jul, [facility] [id number] [place] [address] 97933- 4926 Jul, [facility] [id number] [place] [address] 07339- 7544 Jul, [facility] [id number] [place] [address] 62500- 7411 Jun, Type 2 diabetes mellitus without complication E11.9 [facility] [id number] [place] [address] 08513- 6122 Jun, Chronic migraine G43.709 ; Type 2 diabetes mellitus without complication E11.9 ; Calculus of right kidney N20.0 ; Yeast dermatitis B37.2 and HSV (herpes simplex virus) infection B00.9 [place] [id number] [place] [address] 55062- 6887 Jun, Type 2 diabetes mellitus without complication E11.9 [place] [place] [id number] [place] [address] 18485- 5896 Jun, [place] [id number] [place] [address] 18619- 7049 Jun, Radiculopathy of lumbar region M54.16 and Chronic pain G89.29 [place] [id number] [place] [address] 61128- 9003 Jun, Encounter for Depo-Provera contraception Z30.42 [place] [id number] [place] [address] 47470- 4043 Jun, Type 2 diabetes mellitus without complication E11.9 [place] [id number] [place] [address] 47102- 1227 Jun, [facility] [id number] [place] [address] 44166 -9481 May, Acute nasopharyngitis (common cold) J00 [place] [id number] [place] [address] 13103- 3300 May, Chronic pain G89.29 [place] [address] 21454- 7350 May, Headache following lumbar puncture G97.1 [place] [address] 87281- 0343 May, Radiculopathy of lumbar region M54.16 [place] [address] 53244- 8829 Apr, [place] [address] 50787- 7031 Apr, Type 2 diabetes mellitus without complication E11.9 ; Chronic pain G89.29 ; Essential hypertension I10 ; Radiculopathy of lumbar region M54.16 ; Spinal stenosis, lumbar region M48.06 ; Gastroesophageal reflux disease without esophagitis K21.9 ; HSV (herpes simplex virus) infection B00.9 ; Mixed hyperlipidemia E78.2 ; Anxiety F41.9 and Asthma J45.909 [place] [address] 75962- 8797 Apr, Encounter for Depo-Provera contraception Z30.42 [facility] [id number] [place] [address] 74266- 6242 Apr, Chronic pain G89.29 and Anxiety F41.9 [facility] [place] [id number] [place] [address] 46083- 1986 Mar, [place] [address] 09456- 3105 Mar, [place] [address] 10925- 0919 Mar, Mixed hyperlipidemia E78.2 [place] [address] 96025- 9065 Mar, Type 2 diabetes mellitus without complication E11.9 ; Chronic pain G89.29 ; Essential hypertension I10 ; Radiculopathy of lumbar region M54.16 ; Spinal stenosis, lumbar region M48.06 ; Gastroesophageal reflux disease without esophagitis K21.9 ; HSV (herpes simplex virus) infection B00.9 ; Mixed hyperlipidemia E78.2 and Anxiety F41.9 [facility] [id number] [place] [address] 80232- 7151 Mar, [facility] [id number] [place] [address] 03697- 5769 Mar, [place] [id number] [place] [address] 26164- 1133 Mar, [facility] [id number] [place] [address] 46797- 0524 February, Chronic pain G89.29 [facility] [id number] [place] [address] 47805- 2836 February, [facility] [id number] [place] [address] 52535- 7375 Jan, Chronic pain G89.29 [facility] [id number] [place] [address] 59754- 3077 Jan, Type 2 diabetes mellitus without complication E11.9 [facility] [id number] [place] [address] 25554- 5484 Jan, [facility] [id number] [place] [address] 70703- 9365 Jan, [facility] [id number] [place] [address] 02747- 3379 Jan, [facility] [id number] [place] [address] 76868- 6045 Jan, Type 2 diabetes mellitus without complication [...] J01.00 and Encounter for Depo-Provera contraception Z30.42 [place] [id number] [place] [address] 66353- 5395 Dec, Chronic pain G89.29 [place] [id number] [place] [address] 63054- 6409 Dec, Abnormal ankle brachial index (BERNARDINO) R68.89 [place] [address] 12466- 7711 Dec, [place] [id number] [place] [address] 46635- 0640 Dec, Routine gynecological examination Z01.419 ; Chronic [...] virus) infection B00.9 and Allergic rhinitis 477.9 [place] [address] [place] [address] 65223- 6274 Nov, Chronic pain G89.29 [place] [id number] [place] [address] 49370- 0388 02 Nov, 2016 Chronic pain G89.29 ; [...] mucoid otitis media of both ears H65.113 [place] [id number] [place] [address] 87282- 3214 Oct, [place] [id number] [place] [address] 60663- 5020 Oct, Chronic pain G89.29 [place] [id number] [place] [address] 33075- 7722 Oct, Chronic pain G89.29 [place] [id number] [place] [address] 85546- 5704 Sep, Chronic pain G89.29 ; Type 2 diabetes mellitus without complication E11.9 ; Essential hypertension I10 ; Radiculopathy of lumbar region M54.16 ; Spinal stenosis, lumbar region M48.06 ; Gastroesophageal reflux disease without esophagitis K21.9 ; Encounter for surveillance of injectable contraceptive Z30.42 ; Bilateral cold feet R20.9 ; Pain of left foot M79.672 and Pain in right foot M79.671 [place] [id number] [place] [address] 60522- 4483 Sep, [place] [id number] [place] [address] 05545- 6468 Aug, [place] [id number] [place] [address] 52601- 7458 Aug, [place] [id number] [place] [address] 61234- 1189 Aug, Chronic pain G89.29 ; Type 2 diabetes mellitus without complication E11.9 ; Essential hypertension I10 ; Rash and nonspecific skin eruption R21 and Upper respiratory infection, acute J06.9 [place] [id number] [place] [address] 76762- 2920 Aug, [place] [id number] [place] [address] 19604- 2822 04 Aug, 2016 [place] [id number] [place] [address] 11727- 8280 Jul, [facility] [id number] [place] [address] 37418- 3963 Jul, Dysuria R30.0 ; Encounter for Depo-Provera contraception Z30.42 ; Herpes simplex B00.9 ; Nausea & vomiting R11.2 and Asthma J45.909 [facility] [id number] [place] [address] 94277- 1656 Jun, Dysuria R30.0 [facility] [address] 99940- 7119 19 Jun, 2016 Dysuria R30.0 [facility] [address] 38507- 9077 15 Jun, 2016 [facility] [address] 53101- 7968 13 Jun, 2016 [facility] [address] 29256- 4819 May, [facility] [address] 21437- 1532 May, [facility] [address] 00022- 4056 May, Chronic pain G89.29 ; Essential hypertension I10 ; Type 2 diabetes mellitus without complication E11.9 ; Edema of both feet R60.0 and Rash and nonspecific skin eruption R21 [facility] [id number] [place] [address] 64078- 0211 Apr, [facility] [id number] [place] [address] 71001- 6490 Mar, Carpal tunnel syndrome, left upper limb G56.02 and Carpal tunnel syndrome, right upper limb G56.01 [facility] [id number] [place] [address] 87035- 1368 Mar, [facility] [address] 39745- 1570 Mar, Encounter for Depo-Provera contraception Z30.42 [place] [id number] [place] [address] 41903- 2320 February, [place] [address] 93178- 6411 February, [place] [id number] [place] [address] 01693- 2282 February, Chronic pain G89.29 ; Essential hypertension I10 ; Type 2 diabetes mellitus without complication E11.9 ; HSV (herpes simplex virus) infection B00.9 ; Anxiety F41.9 ; Hypersomnia G47.10 ; Tobacco abuse Z72.0 ; Hand pain, left M79.642 ; Hand pain, right M79.641 ; Left foot pain M79.672 and Heart palpitations R00.2 [place] [id number] [place] [address] 82289- 9337 Jan, [place] [address] 50579- 2060 Jan, [place] [id number] [place] [address] 13603- 5222 Jan, [place] [id number] [place] [address] 11022- 9267 Jan, [place] [id number] [place] [address] 32525- 9884 Jan, Upper respiratory infection J06.9 and Type 2 diabetes mellitus without complication E11.9 [place] [id number] [place] [address] 42876- 7128 Dec, [place] [address] 76171- 1529 Dec, Chronic pain G89.29 ; Essential hypertension I10 ; Type 2 diabetes mellitus without complication E11.9 ; HSV (herpes simplex virus) infection B00.9 ; Anxiety F41.9 ; Upper respiratory infection J06.9 ; Hypersomnia G47.10 and Tobacco abuse Z72.0 [place] [id number] [place] [address] 31978- 0553 17 Dec, 2015 Encounter for Depo-Provera contraception Z30.42 [place] [id number] [place] [address] 22156- 9658 Dec, [place] [address] 22991- 8686 Dec, Chronic pain G89.29 ; Sinusitis J32.9 ; Snoring R06.83 and Daytime hypersomnia G47.19 [place] [address] 48127- 7349 Nov, HSV (herpes simplex virus) infection B00.9 ; Encounter for Papanicolaou smear for cervical cancer screening Z12.4 ; Screening for STD sexually transmitted disease Z11.3 and Bartholin's gland cyst N75.0 [place] [address] 00458- 3528 Nov, [place] [address] 40266- 7422 Nov, [place] [id number] [place] [address] 93880- 4797 Nov, Essential hypertension I10 ; Type 2 diabetes mellitus without complication E11.9 ; HSV (herpes simplex virus) infection B00.9 ; Spinal stenosis, lumbar region M48.06 and Vaginal yeast infection B37.3 [place] [id number] [place] [address] 10162- 6816 Nov, [place] [address] 63425- 6741 Nov, [place] [id number] [place] [address] 67474- 9842 Oct, [place] [id number] [place] [address] 75422- 5807 Oct, HSV (herpes simplex virus) infection B00.9 ; Yeast infection B37.9 ; Change in bowel habit R19.4 ; Nausea & vomiting R11.2 and Gastroesophageal reflux disease without esophagitis K21.9 [place] [address] 43895- 9447 Oct, [address] 98565- 2370 Oct, Type 2 diabetes mellitus without complication E11.9 ; Essential hypertension I10 and Acute maxillary sinusitis, recurrence not specified J01.00 [place] [address] 07296- 9951 Oct, [address] 84896- 5113 Oct, [address] 64025- 6711 Oct, Exposure to head lice Z20.7 ; Blood glucose abnormal R73.09 ; Boil of buttock L02.32 and Type 2 diabetes mellitus without complication E11.9 [place] [address] 72010- 1538 Oct, [address] 10316- 7688 Sep, [address] 50082- 2025 Sep, [address] 09313- 7331 Aug, Encounter for Depo-Provera contraception Z30.[address] 54096- 1230 Aug, Anxiety F41.9 ; Spinal stenosis, lumbar region M48.06 ; Radiculopathy of lumbar region M54.16 ; Asthma J45.909 ; GERD (gastroesophageal reflux disease) K21.9 ; Essential hypertension I10 and Long-term use of high- risk medication Z79.899 [place] [id number] [place] [address] 60546- 5493 Jul, [place] [address] 38815- 8246 Jun, Hemorrhoid 455.[address] 42752- 1005 Jun, [place] [address] 51841- 0422 Jun, Anxiety 300.00 ; Asthma 493.90 ; Hyperhidrosis 705.21 ; Chest discomfort 786.59 and Upper respiratory infection 465.[address] 37973- 0929 May, Encounter for Depo-Provera contraception V25.[address] 62775- 8663 May, [address] 46895- 9569 May, [address] 14368- 5713 May, Spinal stenosis of lumbar region with radiculopathy 724.02 ; Bulging of intervertebral disc between L4 and L5 722.10 ; GERD ( gastroesophageal reflux disease) 530.81 ; Chronic pain 338.29 ; Declining mobility 799.89 and Epigastric pain 789.06 [place] [id number] [place] [address] 89149- 2545 Apr, [address] 04973- 1627 Apr, Nausea 787.02 and Heart burn 787.1 [place] [id number] [place] [address] 36295- 4873 Mar, Lumbago 724.2 ; Vitamin D deficiency 268.9 ; Anxiety 300.00 ; Allergic rhinitis 477.9 and Contraceptive surveillance V25.40 [facility] [address] [address]- 9121 February, 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 ; Chronic pain 338.29 and Vaginal discharge 623.5 [facility] [address] [address]- 6098 February, [facility] [address] [facility] [id number] [place] [address] 42862- 9175 February, [facility] [address] [facility] [id number] [address]- 3073 Jan, [facility] [id number] [place] [address] 65582- 5100 Jan, [facility] [id number] [address]- 8470 Dec, [facility] [id number] [address]- 8811 Dec, [facility] [address] [address]- 6574 Dec, [facility] [address] [address]- 5563 Dec, [facility] [address] [address]- 0867 Dec, [facility] [address] [address]- 9329 Dec, [facility] [address] [address]- 2599 Dec, [facility] [address] [address]- 0026 Dec, [facility] [address] 6447 Dec, [facility] [id number] [place] [address] [place] [address]- 0573 Dec, [facility] [place] [facility] [address] [id number] [place] [address]- 1832 Dec, [facility] [place] [facility] [address] [id number] [place] [address]- 2573 Dec, 2014 [facility] [place] [facility] [address] [id number] [place] [address]- 7519 Nov, 2014 [facility] [place] [facility] [address] [id number] [place] [address]- 4285 Nov, 2014 [facility] [place] [facility] [address] [id number] [place] [address]- 5312 24 Nov, 2014 [facility] [place] [facility] [address] [id number] [place] [address]- 1959 24 Nov, 2014 [facility] [place] [facility] [address] [id number] [place] [address]- 8218 23 Nov, 2014 [facility] [place] [facility] [address] [id number] [place] [address]- 5117 23 Nov, 2014 [facility] [place] [facility] [address] [id number] [place] [address]- 9935 16 Nov, 2014 [facility] [place] [facility] [address] [facility] [id number] [place] [address]- 6050 16 Nov, 2014 [facility] [place] [facility] [address] [id number] [place] [address]- 9792 13 Nov, 2014 [facility] [place] [facility] [address] [id number] [place] [address]- 3056 13 Nov, 2014 [facility] [place] [facility] [address] [id number] [place] [address] 13 Nov, 2014 [facility] [place] [facility] [address] [id number] [place] [address] 13 Nov, 2014 [facility] [place] [facility] [address] [id number] [place] [address] Nov, 2014 [facility] [place] [facility] [address] [id number] [place] [address] Nov, 2014 [facility] [place] [facility] [address] [id number] [place] [address] Nov, 2014 [facility] [place] [facility] [address] [facility] [id number] [place] [address] Nov, 2014 [facility] [place] [facility] [address] [id number] [place] [address] Nov, 2014 [facility] [place] [facility] [address] [id number] [place] [address] Nov, 2014 [facility] [place] [facility] [address] [facility] [id number] [place] [address] Nov, 2014 [facility] [place] [facility] [address] [facility] [id number] [place] [address] Nov, 2014 [facility] [place] [facility] [address] [facility] [id number] [place] [address] Nov, 2014 [facility] [place] [facility] [address] [facility] [id number] [place] [address] Nov, 2014 [facility] [place] [facility] [address] [facility] [id number] [place] [address] Nov, [facility] [place] [facility] [address] [facility] [id number] [place] [address] Oct, [facility] [place] [facility] [address] [facility] [id number] [place] [address] Oct, [facility] [place] [facility] [address] [facility] [id number] [place] [address] 9529 Oct, [facility] [place] [facility] [address] [facility] [id number] [place] [address] 2745 Oct, [facility] [place] [facility] [address] [facility] [id number] [place] [address] 6071 Oct, [facility] [place] [facility] [address] [id number] [place] [address]- 4352 Oct, [facility] [place] [facility] [address] [id number] [place] [address] 3456 Oct, [facility] [place] [facility] [address] [id number] [place] [address]- 0252 Oct, [facility] [place] [facility] [address] [id number] [place] [address]- 1124 Oct, [facility] [place] [facility] [address] [id number] [place] [address]- 2103 Oct, [facility] [place] [facility] [address] [id number] [place] [address]- 7542 Oct, [facility] [place] [facility] [address] [id number] [place] [address]- 7350 Oct, [facility] [place] [facility] [address] [id number] [place] [address]- 0241 Oct, [facility] [place] [facility] [address] [id number] [place] [address]- 1245 Oct, [facility] [place] [facility] [address] [id number] [place] [address]- 3064 Oct, [facility] [place] [facility] [address] [id number] [place] [address]- 5384 Oct, [facility] [place] [facility] [address] [id number] [place] [address]- 2054 Oct, [facility] [place] [facility] [address] [id number] [place] [address]- 7104 Oct, [facility] [place] [facility] [address] [id number] [place] [address]- 9895 Oct, [facility] [place] [facility] [address] [id number] [place] [address]- 3392 Oct, [facility] [place] [facility] [address] [id number] [place] [address]- 9753 Oct, [facility] [place] [facility] [address] [id number] [place] [address]- 0641 29 Sep, 2014 [facility] [place] [facility] [address] [id number] [place] [address] 29 Sep, 2014 [facility] [place] [facility] [address] [id number] [place] [address]- 4418 18 Sep, 2014 [facility] [place] [facility] [address] [id number] [place] [address]- 1981 18 Sep, 2014 [facility] [place] [facility] [address] [id number] [place] [address]- 2071 17 Sep, 2014 [facility] [place] [facility] [address] [id number] [place] [address]- 3779 17 Sep, 2014 [facility] [place] [facility] [address] [id number] [place] [address]- 8973 15 Sep, 2014 [facility] [place] [facility] [address] [id number] [place] [address]- 9950 15 Sep, 2014 [facility] [place] [facility] [address] [id number] [place] [address]- 2987 12 Sep, 2014 [facility] [place] [facility] [address] [id number] [place] [address]- 7512 Sep, [facility] [place] [facility] [address] [id number] [place] [address]- 8001 Sep, [facility] [place] [facility] [address] [id number] [place] [address]- 6229 11 Sep, 2014 [facility] [place] [facility] [address] [id number] [place] [address]- 6008 Sep, [facility] [place] [facility] [address] [id number] [place] [address]- 4323 Sep, [facility] [place] [facility] [address] [id number] [place] [address]- 3723 11 Sep, 2014 [facility] [place] [facility] [address] [id number] [place] [address]- 8884 Sep, [facility] [place] [facility] [address] [id number] [place] [address]- 3121 Sep, [facility] [place] [facility] [address] [id number] [place] [address]- 6367 Sep, [facility] [place] [facility] [address] [id number] [place] [address]- 4047 Sep, [facility] [place] [facility] [address] [id number] [place] [address]- 4712 Sep, [facility] [place] [facility] [address] [id number] [place] [address]- 8770 Aug, [facility] [place] [facility] [address] [id number] [place] [address]- 5144 Aug, [facility] [place] [facility] [address] [id number] [place] [address]- 0764 Aug, [facility] [place] [facility] [address] [id number] [place] [address]- 8632 Aug, [facility] [place] [facility] [address] [id number] [place] [address]- 5962 Aug, [facility] [place] [facility] [address] [id number] [place] [address]- 1016 Aug, [facility] [place] [facility] [address] [id number] [place] [address]- 7112 Aug, [facility] [place] [facility] [address] [id number] [place] [address]- 1834 Aug, [facility] [place] [facility] [address] [id number] [place] [address]- 4045 Aug, [facility] [place] [facility] [address] [id number] [place] [address]- 1722 Jul, [facility] [place] [facility] [address] [id number] [place] [address]- 9483 Jul, [facility] [place] [facility] [address] [id number] [place] [address]- 9958 Jul, [facility] [place] [facility] [address] [id number] [place] [address]- 7822 Jul, [facility] [place] [facility] [address] [id number] [place] [address]- 4439 16 Jul, 2014 [facility] [place] [facility] [address] [id number] [place] [address]- 0231 Jul, [facility] [place] [facility] [address] [id number] [place] [address]- 4779 Jul, [facility] [place] [facility] [address] [id number] [place] [address]- 1277 Jul, [facility] [place] [facility] [address] [id number] [place] [address]- 3680 Jul, [facility] [place] [facility] [address] [id number] [place] [address]- 7057 Jul, [facility] [place] [facility] [address] [id number] [place] [address]- 5580 Jul, [facility] [place] [facility] [address] [id number] [place] [address]- 3912 Jul, [facility] [place] [facility] [address] [id number] [place] [address]- 8319 Jul, [facility] [place] [facility] [address] [id number] [place] [address]- 5692 07 Jul, 2014 [facility] [place] [facility] [address] [id number] [place] [address]- 7482 30 Jun, 2014 [facility] [place] [facility] [address] [id number] [place] [address]- 7972 30 Jun, 2014 [facility] [place] [facility] [address] [id number] [place] [address]- 1083 25 Jun, 2013 [facility] [place] [facility] [address] [id number] [place] [address]- 1196 25 Sep, 2013 [facility] [place] [facility] [address] [id number] [place] [address] 2546 25 Sep, 2013 [facility] [place] [facility] [address] [id number] [place] [address]- 5966 25 Sep, 2013 [facility] [place] [facility] [address] [id number] [place] [address] 2546 24 Sep, 2013 [facility] [place] [facility] [address] [id number] [place] [address]- 7370 24 Sep, 2013 [facility] [place] [facility] [address] [id number] [place] [address]- 7600 22 Sep, 2013 [facility] [place] [facility] [address] [id number] [place] [address]- 9750 22 Sep, 2013 [facility] [place] [facility] [address] [id number] [place] [address]- 3488 17 Sep, 2013 [facility] [place] [facility] [address] [id number] [place] [address]- 8126 17 Sep, 2013 [facility] [place] [facility] [address] [id number] [place] [address]- 2506 16 Sep, 2013 [facility] [place] [facility] [address] [id number] [place] [address]- 6047 16 Sep, 2013 [facility] [place] [facility] [address] [id number] [place] [address]- 6422 15 Sep, 2013 [facility] [place] [facility] [address] [id number] [place] [address]- 2543 15 Sep, 2013 [facility] [place] [facility] [address] [id number] [place] [address]- 3639 12 Sep, 2013 [facility] [place] [facility] [address] [id number] [place] [address]- 2541 12 Sep, 2013 [facility] [place] [facility] [address] [id number] [place] [address]- 8500 11 Sep, 2013 [facility] [place] [facility] [address] [id number] [place] [address]- 8940 11 Jun, 2013 [facility] [place] [facility] [address] [id number] [place] [address]- 3966 Jun, 2013 [facility] [place] [facility] [address] [id number] [place] [address]- 2546 Jun, 2013 [facility] [place] [facility] [address] [id number] [place] [address] 254 Jun, 2013 [facility] [place] [facility] [address] [id number] [place] [address]- 2541 Jun, 2013 [facility] [place] [facility] [address] [id number] [place] [address]- 4494 Jun, 2013 [facility] [place] [facility] [address] [id number] [place] [address]- 7644 Jun, 2013 [facility] [place] [facility] [address] [id number] [place] [address]- 1908 May, [facility] [place] [facility] [address] [id number] [place] [address]- 9151 May, [facility] [place] [facility] [address] [id number] [place] [address]- 1983 May, [facility] [place] [facility] [address] [id number] [place] [address]- 8811 May, [facility] [place] [facility] [address] [id number] [place] [address]- 1962 May, [facility] [place] [facility] [address] [id number] [place] [address]- 5105 May, [facility] [place] [facility] [address] [id number] [place] [address]- 2335 May, [facility] [place] [facility] [address] [id number] [place] [address]- 5139 May, [facility] [place] [facility] [address] [id number] [place] [address]- 6098 May, [facility] [place] [facility] [address] [id number] [place] [address]- 9587 May, [facility] [place] [facility] [address] [id number] [place] [address]- 3805 May, [facility] [place] [facility] [address] [id number] [place] [address]- 6063 May, [facility] [place] [facility] [address] [id number] [place] [address]- 5108 May, [facility] [place] [facility] [address] [id number] [place] [address]- 1928 Apr, [facility] [place] [facility] [address] [id number] [place] [address]- 0998 Apr, [facility] [place] [facility] [address] [id number] [place] [address]- 9201 Apr, [facility] [place] [facility] [address] [id number] [place] [address]- 6384 Apr, [facility] [place] [facility] [address] [id number] [place] [address]- 7053 Apr, [facility] [place] [facility] [address] [id number] [place] [address]- 3274 Mar, [facility] [place] [facility] [address] [id number] [place] [address]- 9603 Mar, [facility] [place] [facility] [address] [id number] [place] [address]- 6408 Mar, [facility] [place] [facility] [address] [id number] [place] [address]- 0338 February, [facility] [place] [facility] [address] [id number] [place] [address]- 8067 February, [facility] [place] [facility] [address] [id number] [place] [address]- 1246 February, [facility] [place] [facility] [address] [id number] [place] [address]- 3676 February, [facility] [place] [facility] [address] [id number] [place] [address]- 0359 February, [facility] [place] [facility] [address] [id number] [place] [address]- 8590 February, [facility] [place] [facility] [address] [id number] [place] February, [facility] [place] [facility] [address] [id number] [place] [address]- 2032 February, [facility] [place] [facility] [address] [id number] [place] [address]- 8284 February, [facility] [place] [facility] [address] [id number] [place] [address]- 7995 Jan, [facility] [place] [facility] [address] [id number] [place] [address]- 9194 Jan, [facility] [place] [facility] [address] [id number] [place] [address]- 6373 Jan, [facility] [place] [facility] [address] [id number] [place] [address]- 0645 Jan, [facility] [place] [facility] [address] [id number] [place] [address]- 4122 Jan, [facility] [place] [facility] [address] [id number] [place] [address]- 9934 Dec, [facility] [place] [facility] [address] [id number] [place] [address]- 9027 Dec, [facility] [place] [facility] [address] [id number] [place] [address]- 5744 Dec, [facility] [place] [facility] [address] [id number] [place] [address]- 0251 Dec, [facility] [place] [facility] [address] [id number] [place]70 Dec, [facility] [place] [facility] [address] [id number] [place] [address]- 4156 Nov, [facility] [place] [facility] [address] [id number] [place] [address]- 4746 Nov, [facility] [place] [facility] [address] [id number] [place] [address]- 9363 Nov, [facility] [place] [facility] [address] [id number] [place] [address]- 6349 Nov, [facility] [place] [facility] [address] [id number] [place] [address]- 0662 Oct, [facility] [place] [facility] [address] [id number] [place] [address]- 4453 Oct, [facility] [place] [facility] [address] [id number] [place] [address]- 8584 Oct, [facility] [place] [facility] [address] [id number] [place] [address]- 5773 Oct, [facility] [place] [facility] [address] [id number] [place] [address]- 1560 Oct, [facility] [place] [facility] [address] [id number] [place] [address]- 1988 Oct, [facility] [place] [facility] [address] [id number] [place] [address]- 6296 Oct, [facility] [place] [facility] [address] [id number] [place] [address]- 0270 Oct, [facility] [place] [facility] [address] [id number] [place] [address]- 8149 Oct, [facility] [place] [facility] [address] [id number] [place] [address]- 3691 Oct, [facility] [place] [facility] [address] [id number] [place] [address]- 6322 Aug, [facility] [place] [facility] [address] [id number] [place] [address]- 8675 Aug, [facility] [address] [id number] [place] [address]- 8801 Jul, [facility] [place] [facility] [address] [facility] [id number] [place] [address]- 2939 Jul, [facility] [address] [facility] [id number] [place] [address]- 2378 Jul, [facility] [place] [facility] [address] [id number] [place] [address]- 5724 Jul, [facility] [address] [facility] [id number] [place] [address]- 2463 Jul, [facility] [place] [facility] [address] [facility] [id number] [place] [address]- 9592 Jul, [facility] [address] [id number] [place] [address]- 0656 Apr, [facility] [place] [facility] [address] [facility] [id number] [place] [address]- 4525 Dec, [facility] [address] [id number] [place] [address]- 5999 Nov, [facility] [place] [facility] [address] [id number] [place] [address]- 6825 Nov, [facility] [address] [id number] [place] [address]- 5227 Nov, [facility] [place] [facility] [address] [facility] [id number] [place] [address]- 2545 Oct, [facility] [place] [facility] [address] [facility] [id number] [place] [address]- 0029 Sep, [facility] [place] [facility] [address] [facility] [id number] [place] [address]- 1926 Sep, [facility] [place] [facility] [address] [facility] [id number] [place] [address]- 9586 Sep, [facility] [place] [facility] [address] [id number] [place] [address]- 2693 Sep, [facility] [place] [facility] [address] [id number] [place] [address]- 7937 Aug, [facility] [place] [facility] [address] [id number] [place] [address]- 6182 Aug, [facility] [place] [facility] [address] [id number] [place] [address]- 3348 Jul, [facility] [place] [facility] [address] [id number] [place] [address]- 8784 Jul, [facility] [place] [facility] [address] [id number] [place] [address]- 8819 28 Jun, 2012 [facility] [place] [facility] [address] [id number] [place] [address]- 3886 26 Jun, 2012 [facility] [place] [facility] [address] [id number] [place] [address]- 6709 24 Jun, 2012 [facility] [place] [facility] [address] [id number] [place] [address]- 3285 24 Jun, 2012 [facility] [place] [facility] [address] [id number] [place] [address]- 3890 12 Jun, 2012 [facility] [place] [facility] [address] [id number] [place] [address]- 5007 31 Apr, 2012 [facility] [place] [facility] [address] [id number] [place] [address]- 3402 30 Apr, 2012 [facility] [place] [facility] [address] [id number] [place] [address]- 2272 24 Apr, 2012 [facility] [place] [facility] [address] [id number] [place] [address]- 2929 Mar, [facility] [place] [facility] [address] [id number] [place] [address]- 2721 05 Mar, 2012 [facility] [place] [facility] [address] [id number] [place] [address]- 2806 Mar, [facility] [address] [id number] [place] [address]- 1747 February, [facility] [place] [facility] [address] [id number] [place] [address]- 0696 Jan, [facility] [place] [facility] [address] [id number] [place] [address]- 2011 Dec, [facility] [place] [facility] [address] [id number] [place] [address]- 2892 Dec, [facility] [place] [facility] [address] [id number] [place] [address]- 6065 Dec, [facility] [place] [facility] [address] [id number] [place] [address]77 Dec, [facility] [place] [facility] [address] [id number] [place] [address]- 9004 Dec, [facility] [place] [facility] [address] [id number] [place] [address]- 1877 Nov, [facility] [place] [facility] [address] [id number] [place] [address]- [address] Nov, [facility] [place] [facility] [address] [id number] [place] [address] Oct, [facility] [place] [facility] [address] [id number] [place] [address] Oct, [facility] [place] [facility] [address] [id number] [place] [address] Oct, [facility] [place] [facility] [address] [id number] [place] [address] Sep, [facility] [place] [facility] [address] [id number] [place] [address] Aug, [facility] [place] [facility] [address] [id number] [place] [address] Aug, [facility] [place] [facility] [address] [id number] [place] [address] 28 Jul, 2011 [facility] [address] [id number] [place] [address] 24 Jul, 2011 [facility] [place] [facility] [address] [id number] [place] [address] 19 Jul, 2011 [facility] [address] [id number] [place] [address] 13 Jan, 2011 [facility] [place] [facility] [address] [id number] [place] [address] 29 Sep, 2010 [facility] [address] [id number] [place] [address] 27 Sep, 2010 [facility] [address] [id number] [place] [address] 20 Sep, 2010 [facility] [place] [facility] [address] [id number] [place] [address] 20 Sep, 2010 [facility] [address] [id number] [place] [address] 06 Sep, 2010 [facility] [place] [facility] [address] [id number] [place] [address] 16 Aug, 2010 [facility] [address] [id number] [place] [address] 16 Aug, 2010 [facility] [place] [facility] [address] [id number] [place] [address] 08 Aug, 2010 [facility] [place] [facility] [address] [id number] [place] [address] Jul, [facility] [place] [facility] [address] [id number] [place] [address] 19 Jul, 2010 [facility] [place] [facility] [address] [id number] [place] [address] Jul, [facility] [place] [facility] [address] [id number] [place] [address] May, [facility] [address] [id number] [address] Apr, [facility] [id number] [address] Dec, [facility] [address] [id number] [address] Sep, [facility] [id number] [address] Sep, [facility] [address] [id number] [address] Aug, [facility] [id number] [place] [address] Aug, [facility] [id number] [address] Jul, [facility] [address] [id number] [address] Mar, IMMUNIZATIONS No Known Immunizations SOCIAL HISTORY Never Assessed REASON FOR VISIT Controlled Med Refill 02/21 PLAN OF CARE VITAL SIGNS MEDICATIONS Medication Instructions Dosage Frequency Start Date End Date Duration Status MS Contin 15 mg Orally every 12 hrs as needed must last 28 days 1 tablet February, 28 days Active Hydrocodone-Acetaminophen 5-325 MG Orally four times a day as needed for pain. Must last 28 days. 1 tablet February, 28 days Active Lyrica 150 MG Orally [...] History Right arm/hand carpal tunnel release- Dr. hAn 2015 Hospitalization History Surgery(s) only Hospitalization History [place]-sepsis/[facility] 06/2017
--- OUTSIDE RECORDS SUMMARY | 2018-10-08 19:49 | XMS REPORT ---
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 Active 821847590 Problem Edema of both feet R60.0 Active 090399381 Problem Tobacco abuse Z72.0 Active 16388948 Problem Chronic migraine G43.709 Active 78490382 Problem Mixed hyperlipidemia E78.2 Active 677159925 Problem Spinal stenosis, lumbar region M48.06 Active 08756930 Problem Anxiety F41.9 Active 42676218 Problem Radiculopathy of lumbar region M54.16 Active 894877508 Problem Bulging lumbar disc M51.26 Active 823628955 Problem Asthma J45.909 Active 234908722 Problem Essential hypertension I10 Active 20559804 ALLERGIES No Information ENCOUNTERS Encounter Location Date Diagnosis [facility] [id number] [place] [address] 45431- 6796 Apr, Chronic pain G89.29 [facility] [id number] [place] [address] 47051- 5884 24 Apr, 2018 Chronic pain G89.29 and Anxiety F41.9 [facility] [id number] [place] [address] 75244- 1110 Mar, HSV (herpes simplex virus) infection B00.9 ; Anxiety F41.9 and Chronic pain G89.29 [facility] [id number] [place] [address] 55259- 6734 Mar, [place] [facility] [address] 38836- 4604 Mar, Chronic pain G89.29 [facility] [id number] [place] [address] 41807- 4510 February, Chronic pain G89.29 [facility] [facility] [address] 88677- 1474 Jan, Chronic pain G89.29 [place] [facility] [address] 826063- 9604 Jan, 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 [place] [address] 53233- 1492 Jan, Encounter for Depo-Provera contraception Z30.42 [facility] [facility] [address] 73312- 4422 Jan, [place] [address] 98352- 8604 Jan, Chronic pain G89.29 and Anxiety F41.9 [facility] [id number] [place] [address] 96935- 7775 Jan, [facility] [id number] [place] [address] 01831- 8333 Dec, [facility] [facility] [id number] [place] [address] 79696- 9511 Dec, Gastroesophageal reflux disease without esophagitis K21.9 and Anxiety F41.9 [facility] [id number] [place] [address] 37752- 7277 Dec, Essential hypertension I10 ; Mixed hyperlipidemia E78.2 ; Type 2 diabetes mellitus with diabetic neuropathy, unspecified E11.40 ; 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 ; Chronic pain G89.29 ; HSV (herpes simplex virus) infection B00.9 ; Anxiety F41.9 and Gastroesophageal reflux disease without esophagitis K21.9 [facility] [id number] [place] [address] 60111- 3025 Dec, Chronic pain G89.29 and Chronic migraine G43.709 [facility] [address] 05164- 2607 Nov, [place] [address] 66831- 0960 Nov, Essential hypertension I10 and Chronic pain G89.[address] 47131- 8583 Nov, Chronic pain G89.29 ; Essential hypertension I10 and Type 2 diabetes mellitus without complication E11.9 [facility] [address] 93858- 8654 Oct, Chronic pain G89.29 [facility] [facility] [address] 93115- 4277 Oct, [place] [address] 56980- 5854 Sep, Type 2 diabetes mellitus without complication E11.9 ; Essential hypertension I10 ; nursing home (current) use of insulin Z79.4 ; Chronic migraine G43.709 ; Chronic pain G89.29 and Acute non-recurrent maxillary sinusitis J01.00 [place] [address] 45768- 9870 Sep, Encounter for Depo-Provera contraception Z30.42 [place] [address] 22897- 9824 Sep, Chronic pain G89.29 and Radiculopathy of lumbar region M54.16 [place] [address] 56332- 8007 Sep, [place] [address] 84534- 5375 Sep, [facility] [address] [address]- 6859 Aug, Type 2 diabetes mellitus without complication E11.9 [facility] [address] [facility] [id number] [address] 0436 Aug, [facility] [id number] [address]- 5014 Aug, Radiculopathy of lumbar region M54.16 and Chronic pain G89.29 [facility] [address] [address]- 4697 Aug, Type 2 diabetes mellitus without complication E11.9 [facility] [address] [address]- 0776 Aug, Type 2 diabetes mellitus without complication E11.9 [facility] [address] [address]- 4456 Jul, Type 2 diabetes mellitus without complication E11.9 [facility] [address] [address]- 5533 Jul, [facility] [id number] [place] [address] 92641- 4407 Jul, Chronic pain G89.29 [facility] [address] [address]- 5292 Jul, [facility] [address] [address]- 2432 Jul, [facility] [address] [address]- 3611 Jul, Type 2 diabetes mellitus without complication E11.9 [facility] [id number] [address]- 9026 Jul, [facility] [address] [address]- 4225 Jul, Type 2 diabetes mellitus without complication E11.9 [facility] [id number] [place] [address] 77032- 8626 Jul, [facility] [id number] [place] [address] 42559- 1075 Jul, [facility] [id number] [place] [address] 79644- 3677 Jul, [facility] [id number] [place] [address] 90336- 5869 Jun, Type 2 diabetes mellitus without complication E11.9 [facility] [id number] [place] [address] 13181- 4850 Jun, Chronic migraine G43.709 ; Type 2 diabetes mellitus without complication E11.9 ; Calculus of right kidney N20.0 ; Yeast dermatitis B37.2 and HSV (herpes simplex virus) infection B00.9 [facility] [id number] [place] [address] 56823- 3976 Jun, Type 2 diabetes mellitus without complication E11.9 [facility] [id number] [place] [address] 51495- 7656 Jun, [place] [id number] [place] [address] 51170- 2054 Jun, Radiculopathy of lumbar region M54.16 and Chronic pain G89.29 [place] [id number] [place] [address] 90927- 2291 Jun, Encounter for Depo-Provera contraception Z30.42 [place] [id number] [place] [address] 71839- 8312 Jun, Type 2 diabetes mellitus without complication E11.9 [place] [id number] [place] [address] 89067- 8573 Jun, [facility] [id number] [place] [address] 55682 -2232 May, Acute nasopharyngitis (common cold) J00 [place] [id number] [place] [address] 92577- 9019 May, Chronic pain G89.29 [place] [address] 33762- 1526 May, Headache following lumbar puncture G97.1 [place] [address] 76942- 0153 May, Radiculopathy of lumbar region M54.16 [place] [address] 50999- 2322 Apr, [place] [address] 45787- 6636 Apr, Type 2 diabetes mellitus without complication E11.9 ; Chronic pain G89.29 ; Essential hypertension I10 ; Radiculopathy of lumbar region M54.16 ; Spinal stenosis, lumbar region M48.06 ; Gastroesophageal reflux disease without esophagitis K21.9 ; HSV (herpes simplex virus) infection B00.9 ; Mixed hyperlipidemia E78.2 ; Anxiety F41.9 and Asthma J45.909 [place] [address] 52255- 8469 Apr, Encounter for Depo-Provera contraception Z30.42 [place] [id number] [place] [address] 42525- 7874 Apr, Chronic pain G89.29 and Anxiety F41.9 [facility] [id number] [place] [address] 16635- 8797 Mar, [place] [address] 16483- 3098 Mar, [place] [address] 84299- 7272 Mar, Mixed hyperlipidemia E78.2 [place] [address] 28004- 1503 Mar, Type 2 diabetes mellitus without complication E11.9 ; Chronic pain G89.29 ; Essential hypertension I10 ; Radiculopathy of lumbar region M54.16 ; Spinal stenosis, lumbar region M48.06 ; Gastroesophageal reflux disease without esophagitis K21.9 ; HSV (herpes simplex virus) infection B00.9 ; Mixed hyperlipidemia E78.2 and Anxiety F41.9 [facility] [id number] [place] [address] 97600- 4459 Mar, [facility] [id number] [place] [address] 79911- 8648 Mar, [place] [id number] [place] [address] 56730- 9444 Mar, [facility] [id number] [place] [address] 82219- 3775 February, Chronic pain G89.29 [facility] [id number] [place] [address] 38335- 1024 February, [facility] [id number] [place] [address] 89996- 6517 Jan, Chronic pain G89.29 [facility] [id number] [place] [address] 23435- 1983 Jan, Type 2 diabetes mellitus without complication E11.9 [facility] [id number] [place] [address] 11379- 9357 Jan, [facility] [id number] [place] [address] 91277- 6861 Jan, [facility] [id number] [place] [address] 60758- 7358 Jan, [facility] [id number] [place] [address] 01030- 5252 Jan, Type 2 diabetes mellitus without complication [...] J01.00 and Encounter for Depo-Provera contraception Z30.42 [place] [id number] [place] [address] 83167- 2021 Dec, Chronic pain G89.29 [place] [id number] [place] [address] 41197- 5414 Dec, Abnormal ankle brachial index (BERNARDINO) R68.89 [place] [address] 68253- 6482 Dec, [place] [id number] [place] [address] 08169- 1585 Dec, Routine gynecological examination Z01.419 ; Chronic [...] virus) infection B00.9 and Allergic rhinitis 477.9 [place] [id number] [place] [address] 05384- 0230 Nov, Chronic pain G89.29 [facility] [id number] [place] [address] 06556- 0009 02 Nov, 2016 Chronic pain G89.29 ; [...] mucoid otitis media of both ears H65.113 [place] [id number] [place] [address] 54223- 3344 Oct, [facility] [id number] [place] [address] 29020- 8090 Oct, Chronic pain G89.29 [facility] [id number] [place] [address] 79999- 5398 Oct, Chronic pain G89.29 [facility] [id number] [place] [address] 69688- 8857 Sep, Chronic pain G89.29 ; Type 2 diabetes mellitus without complication E11.9 ; Essential hypertension I10 ; Radiculopathy of lumbar region M54.16 ; Spinal stenosis, lumbar region M48.06 ; Gastroesophageal reflux disease without esophagitis K21.9 ; Encounter for surveillance of injectable contraceptive Z30.42 ; Bilateral cold feet R20.9 ; Pain of left foot M79.672 and Pain in right foot M79.671 [place] [id number] [place] [address] 70469- 7394 Sep, [place] [id number] [place] [address] 97482- 7610 Aug, [place] [id number] [place] [address] 94963- 7181 Aug, [place] [id number] [place] [address] 22703- 6359 Aug, Chronic pain G89.29 ; Type 2 diabetes mellitus without complication E11.9 ; Essential hypertension I10 ; Rash and nonspecific skin eruption R21 and Upper respiratory infection, acute J06.9 [place] [id number] [place] [address] 92444- 8128 Aug, [place] [id number] [place] [address] 15951- 2996 04 Aug, 2016 [place] [id number] [place] [address] 93422- 4218 Jul, [facility] [id number] [place] [address] 49998- 5641 Jul, Dysuria R30.0 ; Encounter for Depo-Provera contraception Z30.42 ; Herpes simplex B00.9 ; Nausea & vomiting R11.2 and Asthma J45.909 [facility] [id number] [place] [address] 89830- 0166 Jun, Dysuria R30.0 [facility] [address] 80993- 8192 19 Jun, 2016 Dysuria R30.0 [facility] [address] 50629- 9065 15 Jun, 2016 [facility] [address] 81217- 8192 13 Jun, 2016 [facility] [address] 71643- 5366 May, [facility] [address] 36247- 5854 May, [facility] [address] 91020- 0184 May, Chronic pain G89.29 ; Essential hypertension I10 ; Type 2 diabetes mellitus without complication E11.9 ; Edema of both feet R60.0 and Rash and nonspecific skin eruption R21 [facility] [id number] [place] [address] 95410- 5735 Apr, [facility] [id number] [place] [address] 80332- 5925 Mar, Carpal tunnel syndrome, left upper limb G56.02 and Carpal tunnel syndrome, right upper limb G56.01 [facility] [id number] [place] [address] 84389- 7658 Mar, [facility] [address] 98035- 3305 Mar, Encounter for Depo-Provera contraception Z30.42 [place] [id number] [place] [address] 60589- 3761 February, [place] [address] 75643- 0685 February, [place] [id number] [place] [address] 04855- 5129 February, Chronic pain G89.29 ; Essential hypertension I10 ; Type 2 diabetes mellitus without complication E11.9 ; HSV (herpes simplex virus) infection B00.9 ; Anxiety F41.9 ; Hypersomnia G47.10 ; Tobacco abuse Z72.0 ; Hand pain, left M79.642 ; Hand pain, right M79.641 ; Left foot pain M79.672 and Heart palpitations R00.2 [place] [id number] [place] [address] 22497- 9576 Jan, [place] [address] 86404- 3478 Jan, [place] [id number] [place] [address] 34493- 6211 Jan, [place] [id number] [place] [address] 28885- 0904 Jan, [place] [id number] [place] [address] 40953- 6904 Jan, Upper respiratory infection J06.9 and Type 2 diabetes mellitus without complication E11.9 [place] [id number] [place] [address] 89371- 9768 Dec, [place] [address] 07194- 7575 Dec, Chronic pain G89.29 ; Essential hypertension I10 ; Type 2 diabetes mellitus without complication E11.9 ; HSV (herpes simplex virus) infection B00.9 ; Anxiety F41.9 ; Upper respiratory infection J06.9 ; Hypersomnia G47.10 and Tobacco abuse Z72.0 [place] [id number] [place] [address] 44319- 8785 17 Dec, 2015 Encounter for Depo-Provera contraception Z30.42 [place] [id number] [place] [address] 11701- 9750 Dec, [place] [address] 97248- 4266 Dec, Chronic pain G89.29 ; Sinusitis J32.9 ; Snoring R06.83 and Daytime hypersomnia G47.19 [place] [address] 27598- 1262 Nov, HSV (herpes simplex virus) infection B00.9 ; Encounter for Papanicolaou smear for cervical cancer screening Z12.4 ; Screening for STD sexually transmitted disease Z11.3 and Bartholin's gland cyst N75.0 [place] [address] 03204- 6677 Nov, [place] [address] 80535- 1702 Nov, [place] [id number] [place] [address] 73422- 1151 Nov, Essential hypertension I10 ; Type 2 diabetes mellitus without complication E11.9 ; HSV (herpes simplex virus) infection B00.9 ; Spinal stenosis, lumbar region M48.06 and Vaginal yeast infection B37.3 [place] [id number] [place] [address] 97996- 2720 Nov, [place] [address] 35626- 5976 Nov, [place] [id number] [place] [address] 59153- 9141 Oct, [place] [id number] [place] [address] 85748- 4902 Oct, HSV (herpes simplex virus) infection B00.9 ; Yeast infection B37.9 ; Change in bowel habit R19.4 ; Nausea & vomiting R11.2 and Gastroesophageal reflux disease without esophagitis K21.9 [place] [address] 34901- 8177 Oct, [address] 88721- 1222 Oct, Type 2 diabetes mellitus without complication E11.9 ; Essential hypertension I10 and Acute maxillary sinusitis, recurrence not specified J01.00 [place] [address] 40085- 4390 Oct, [address] 04705- 6282 Oct, [address] 40323- 4970 Oct, Exposure to head lice Z20.7 ; Blood glucose abnormal R73.09 ; Boil of buttock L02.32 and Type 2 diabetes mellitus without complication E11.9 [place] [address] 61189- 5126 Oct, [address] 48729- 7205 Sep, [address] 12147- 7013 Sep, [address] 86502- 6798 Aug, Encounter for Depo-Provera contraception Z30.[address] 18516- 8056 Aug, Anxiety F41.9 ; Spinal stenosis, lumbar region M48.06 ; Radiculopathy of lumbar region M54.16 ; Asthma J45.909 ; GERD (gastroesophageal reflux disease) K21.9 ; Essential hypertension I10 and Long-term use of high- risk medication Z79.899 [place] [id number] [place] [address] 00198- 1640 Jul, [place] [address] 79569- 7110 Jun, Hemorrhoid 455.[address] 75745- 9068 Jun, [place] [address] 41183- 2242 Jun, Anxiety 300.00 ; Asthma 493.90 ; Hyperhidrosis 705.21 ; Chest discomfort 786.59 and Upper respiratory infection 465.[address] 77570- 5582 May, Encounter for Depo-Provera contraception V25.[address] 28013- 5338 May, [address] 76906- 8092 May, [address] 38066- 4718 May, Spinal stenosis of lumbar region with radiculopathy 724.02 ; Bulging of intervertebral disc between L4 and L5 722.10 ; GERD ( gastroesophageal reflux disease) 530.81 ; Chronic pain 338.29 ; Declining mobility 799.89 and Epigastric pain 789.06 [place] [id number] [place] [address] 08425- 4720 Apr, [address] 12499- 3583 Apr, Nausea 787.02 and Heart burn 787.1 [place] [id number] [place] [address] 99877- 2624 Mar, Lumbago 724.2 ; Vitamin D deficiency 268.9 ; Anxiety 300.00 ; Allergic rhinitis 477.9 and Contraceptive surveillance V25.40 [facility] [address] [address]- 2102 February, 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 ; Chronic pain 338.29 and Vaginal discharge 623.5 [facility] [address], [place] [address]- 9302 February, [facility] [address] [facility] [id number] [place] [address] 31892- 2597 February, [facility] [address] [facility] [id number] [address]- 7852 Jan, [facility] [id number] [place] [address] 96134- 5237 Jan, [facility] [id number] [address]- 7202 Dec, [facility] [id number] [address]- 7560 Dec, [facility] [address], [place] [address]- 6107 Dec, [facility] [address] [address]- 2007 Dec, [facility] [address] [address]- 4923 Dec, [facility] [address] [address]- 8458 Dec, [facility] [address] [address]- 4462 Dec, [facility] [address] [address]- 4733 Dec, [facility] [address] 2407 Dec, [facility] [id number] [place] [address] [place] [address]- 1809 Dec, [facility] [place] [facility] [address] [id number] [place] [address]- 53[address] Dec, [facility] [place] [facility] [address] [id number] [place] [address] Dec, 2014 [facility] [place] [facility] [address] [id number] [place] [address] Nov, 2014 [facility] [place] [facility] [address] [id number] [place] [address] Nov, 2014 [facility] [place] [facility] [address] [id number] [place] [address] 24 Nov, 2014 [facility] [place] [facility] [address] [id number] [place] [address] 24 Nov, 2014 [facility] [place] [facility] [address] [id number] [place] [address] 23 Nov, 2014 [facility] [place] [facility] [address] [id number] [place] [address] 23 Nov, 2014 [facility] [place] [facility] [address] [id number] [place] [address] 16 Nov, 2014 [facility] [place] [facility] [address] [facility] [id number] [place] [address] 16 Nov, 2014 [facility] [place] [facility] [address] [id number] [place] [address] 13 Nov, 2014 [facility] [place] [facility] [address] [id number] [place] [address] 13 Nov, 2014 [facility] [place] [facility] [address] [id number] [place] [address] 13 Nov, 2014 [facility] [place] [facility] [address] [id number] [place] [address] 13 Nov, 2014 [facility] [place] [facility] [address] [id number] [place] [address] Nov, 2014 [facility] [place] [facility] [address] [id number] [place] [address] Nov, 2014 [facility] [place] [facility] [address] [id number] [place] [address] Nov, 2014 [facility] [place] [facility] [address] [facility] [id number] [place] [address] Nov, 2014 [facility] [place] [facility] [address] [id number] [place] [address] Nov, 2014 [facility] [place] [facility] [address] [id number] [place] [address] Nov, 2014 [facility] [place] [facility] [address] [facility] [id number] [place] [address] Nov, 2014 [facility] [place] [facility] [address] [facility] [id number] [place] [address] Nov, 2014 [facility] [place] [facility] [address] [facility] [id number] [place] [address] 9738 Nov, 2014 [facility] [place] [facility] [address] [facility] [id number] [place] [address] 0607 Nov, 2014 [facility] [place] [facility] [address] [facility] [id number] [place] [address] 8307 Nov, [facility] [place] [facility] [address] [facility] [id number] [place] [address] 6389 Oct, [facility] [place] [facility] [address] [facility] [id number] [address] Oct, [facility] [place] [facility] [address] [facility] [id number] [place] [address] 4391 Oct, [facility] [place] [facility] [address] [facility] [id number] [place] [address] 7656 Oct, [facility] [place] [facility] [address] [facility] [id number], [place] [address] Oct, [facility] [place] [facility] [address] [id number] [place] [address] 2869 Oct, [facility] [place] [facility] [address] [id number] [place] [address]- 5641 Oct, [facility] [place] [facility] [address] [id number] [place] [address]- 1764 Oct, [facility] [place] [facility] [address] [id number] [place] [address]- 9861 Oct, [facility] [place] [facility] [address] [id number] [place] [address] 3191 Oct, [facility] [place] [facility] [address] [id number] [place] [address]- 7330 Oct, [facility] [place] [facility] [address] [id number] [place] [address]- 3698 Oct, [facility] [place] [facility] [address] [id number] [place] [address]- 8491 Oct, [facility] [place] [facility] [address] [id number] [place] [address]- 9237 Oct, [facility] [place] [facility] [address] [id number] [place] [address]- 5075 Oct, [facility] [place] [facility] [address] [id number] [place] [address]- 1679 Oct, [facility] [place] [facility] [address] [id number] [place] [address]- 7841 Oct, [facility] [place] [facility] [address] [id number] [place] [address]- 4393 Oct, [facility] [place] [facility] [address] [id number] [place] [address]- 0060 Oct, [facility] [place] [facility] [address] [id number] [place] [address]- 1539 Oct, [facility] [place] [facility] [address] [id number] [place] [address]- 6837 Oct, [facility] [place] [facility] [address] [id number] [place] [address]- 0019 29 Sep, 2014 [facility] [place] [facility] [address] [id number] [place] 29 Sep, 2014 [facility] [place] [facility] [address] [id number] [place] [address]- 8584 18 Sep, 2014 [facility] [place] [facility] [address] [id number] [place] [address]- 4587 18 Sep, 2014 [facility] [place] [facility] [address] [id number] [place] [address]- 3321 17 Sep, 2014 [facility] [place] [facility] [address] [id number] [place] [address]- 8316 17 Sep, 2014 [facility] [place] [facility] [address] [id number] [place] [address]- 0097 15 Sep, 2014 [facility] [place] [facility] [address] [id number] [place] [address]- 8250 15 Sep, 2014 [facility] [place] [facility] [address] [id number] [place] [address]- 3607 12 Sep, 2014 [facility] [place] [facility] [address] [id number] [place] [address]- 3974 Sep, [facility] [place] [facility] [address] [id number] [place] [address]- 8348 Sep, [facility] [place] [facility] [address] [id number] [place] [address]- 1654 11 Sep, 2014 [facility] [place] [facility] [address] [id number] [place] [address]- 5283 Sep, [facility] [place] [facility] [address] [id number] [place] [address]- 3652 Sep, [facility] [place] [facility] [address] [id number] [place] [address]- 4602 11 Sep, 2014 [facility] [place] [facility] [address] [id number] [place] [address]- 9633 Sep, [facility] [place] [facility] [address] [id number] [place] [address]- 0752 Sep, [facility] [place] [facility] [address] [id number] [place] [address]- 7122 Sep, [facility] [place] [facility] [address] [id number] [place] [address]- 3380 Sep, [facility] [place] [facility] [address] [id number] [place] [address]- 0772 Sep, [facility] [place] [facility] [address] [id number] [place] [address]- 0278 Aug, [facility] [place] [facility] [address] [id number] [place] [address]- 6572 Aug, [facility] [place] [facility] [address] [id number] [place] [address]- 0257 Aug, [facility] [place] [facility] [address] [id number] [place] [address]- 0536 Aug, [facility] [place] [facility] [address] [id number] [place] [address]- 8569 Aug, [facility] [place] [facility] [address] [id number] [place] [address]- 8577 Aug, [facility] [place] [facility] [address] [id number] [place] [address]- 5255 Aug, [facility] [place] [facility] [address] [id number] [place] [address]- 3692 Aug, [facility] [place] [facility] [address] [id number] [place] [address]- 6113 Aug, [facility] [place] [facility] [address] [id number] [place] [address]- 1082 Jul, [facility] [place] [facility] [address] [id number] [place] [address]- 6159 Jul, [facility] [place] [facility] [address] [id number] [place] [address]- 3843 Jul, [facility] [place] [facility] [address] [id number] [place] [address]- 1832 Jul, [facility] [place] [facility] [address] [id number] [place] [address]- 2731 16 Jul, 2014 [facility] [place] [facility] [address] [id number] [place] [address]- 4418 Jul, [facility] [place] [facility] [address] [id number] [place] [address]- 9521 Jul, [facility] [place] [facility] [address] [id number] [place] [address]- 6503 Jul, [facility] [place] [facility] [address] [id number] [place] [address]- 6648 Jul, [facility] [place] [facility] [address] [id number] [place] [address]- 4015 Jul, [facility] [place] [facility] [address] [id number] [place] [address]- 5160 Jul, [facility] [place] [facility] [address] [id number], [place] [address]- 0254 Jul, [facility] [place] [facility] [address] [id number], [place] [address]- 2184 Jul, [facility] [place] [facility] [address] [id number], [place] [address]- 5794 07 Jul, 2014 [facility] [place] [facility] [address] [id number] [place] [address]- 8800 30 Jun, 2014 [facility] [place] [facility] [address] [id number] [place] [address]- 5422 30 Jun, 2014 [facility] [place] [facility] [address] [id number], [place] [address]- 1850 25 Jun, 2013 [facility] [place] [facility] [address] [id number], [place] [address]- 8041 25 Sep, 2013 [facility] [place] [facility] [address] [id number] [place] [address] 2546 25 Sep, 2013 [facility] [place] [facility] [address] [id number] [place] [address]- 1266 25 Sep, 2013 [facility] [place] [facility] [address] [id number] [place] [address] 2546 24 Sep, 2013 [facility] [place] [facility] [address] [id number] [place] [address]- 2410 24 Sep, 2013 [facility] [place] [facility] [address] [id number] [place] [address]- 0415 22 Sep, 2013 [facility] [place] [facility] [address] [id number] [place] [address]- 3066 22 Sep, 2013 [facility] [place] [facility] [address] [id number] [place] [address]- 2510 17 Sep, 2013 [facility] [place] [facility] [address] [id number] [place] [address]- 9097 17 Sep, 2013 [facility] [place] [facility] [address] [id number] [place] [address]- 1462 16 Sep, 2013 [facility] [place] [facility] [address] [id number] [place] [address]- 5437 16 Sep, 2013 [facility] [place] [facility] [address] [id number] [place] [address]- 6108 15 Sep, 2013 [facility] [place] [facility] [address] [id number], [place] [address]- 2543 15 Sep, 2013 [facility] [place] [facility] [address] [id number] [place] [address]- 7347 12 Sep, 2013 [facility] [place] [facility] [address] [id number] [place] [address]- 2540 12 Sep, 2013 [facility] [place] [facility] [address] [id number] [place] [address]- 0028 11 Sep, 2013 [facility] [place] [facility] [address] [id number] [place] [address]- 6306 11 Jun, 2013 [facility] [place] [facility] [address] [id number] [place] [address]- 8906 Jun, 2013 [facility] [place] [facility] [address] [id number] [place] [address]- 2546 Jun, 2013 [facility] [place] [facility] [address] [id number] [place] [address] 2547 Jun, 2013 [facility] [place] [facility] [address] [id number] [place] [address]- 2542 Jun, 2013 [facility] [place] [facility] [address] [id number] [place] [address]- 1786 Jun, 2013 [facility] [place] [facility] [address] [id number] [place] [address]- 0998 Jun, 2013 [facility] [place] [facility] [address] [id number] [place] [address]- 9643 May, [facility] [place] [facility] [address] [id number] [place] [address]- 7305 May, [facility] [place] [facility] [address] [id number] [place] [address]- 8935 May, [facility] [place] [facility] [address] [id number] [place] [address]- 9970 May, [facility] [place] [facility] [address] [id number] [place] [address]- 2151 May, [facility] [place] [facility] [address] [id number] [place] [address]- 4205 May, [facility] [place] [facility] [address] [id number] [place] [address]- 3970 May, [facility] [place] [facility] [address] [id number] [place] [address]- 8544 May, [facility] [place] [facility] [address] [id number] [place] [address]- 0089 May, [facility] [place] [facility] [address] [id number] [place] [address]- 8567 May, [facility] [place] [facility] [address] [id number] [place] [address]- 5722 May, [facility] [place] [facility] [address] [id number] [place] [address]- 3915 May, [facility] [place] [facility] [address] [id number] [place] [address]- 7158 May, [facility] [place] [facility] [address] [id number] [place] [address]- 1302 Apr, [facility] [place] [facility] [address] [id number] [place] [address]- 5226 Apr, [facility] [place] [facility] [address] [id number] [place] [address]- 0800 Apr, [facility] [place] [facility] [address] [id number] [place] [address]- 1476 Apr, [facility] [place] [facility] [address] [id number] [place] [address]- 6788 Apr, [facility] [place] [facility] [address] [id number] [place] [address]- 5636 Mar, [facility] [place] [facility] [address] [id number] [place] [address]- 7013 Mar, [facility] [place] [facility] [address] [id number] [place] [address]- 8148 Mar, [facility] [place] [facility] [address] [id number] [place] [address]- 1387 February, [facility] [place] [facility] [address] [id number] [place] [address]- 2332 February, [facility] [place] [facility] [address] [id number] [place] [address]- 1409 February, [facility] [place] [facility] [address] [id number] [place] [address]- 0240 February, [facility] [place] [facility] [address] [id number] [place] [address]- 6630 February, [facility] [place] [facility] [address] [id number] [place] [address]- 2388 February, [facility] [place] [facility] [address] [id number] [place]38 February, [facility] [place] [facility] [address] [id number] [place] [address]- 6979 February, [facility] [place] [facility] [address] [id number] [place] [address]- 5423 February, [facility] [place] [facility] [address] [id number] [place] [address]- 5702 Jan, [facility] [place] [facility] [address] [id number] [place] [address]- 2417 Jan, [facility] [place] [facility] [address] [id number] [place] [address]- 8769 Jan, [facility] [place] [facility] [address] [id number] [place] [address]- 5000 Jan, [facility] [place] [facility] [address] [id number] [place] [address]- 1556 Jan, [facility] [place] [facility] [address] [id number] [place] [address]- 2653 Dec, [facility] [place] [facility] [address] [id number] [place] [address]- 5909 Dec, [facility] [place] [facility] [address] [id number] [place] [address]- 3003 Dec, [facility] [place] [facility] [address] [id number] [place] [address]- 3370 Dec, [facility] [place] [facility] [address] [id number] [place] 9787 Dec, [facility] [place] [facility] [address] [id number] [place] [address]- 1842 Nov, [facility] [place] [facility] [address] [id number] [place] [address]- 5866 Nov, [facility] [place] [facility] [address] [id number] [place] [address]- 1379 Nov, [facility] [place] [facility] [address] [id number] [place] [address]- 4295 Nov, [facility] [place] [facility] [address] [id number] [place] [address]- 6683 Oct, [facility] [place] [facility] [address] [id number] [place] [address]- 4762 Oct, [facility] [place] [facility] [address] [id number] [place] [address]- 4228 Oct, [facility] [place] [facility] [address] [id number] [place] [address]- 5615 Oct, [facility] [place] [facility] [address] [id number] [place] [address]- 5708 Oct, [facility] [place] [facility] [address] [id number] [place] [address]- 7489 Oct, [facility] [place] [facility] [address] [id number] [place] [address]- 0970 Oct, [facility] [place] [facility] [address] [id number] [place] [address]- 9651 Oct, [facility] [place] [facility] [address] [id number] [place] [address]- 9215 Oct, [facility] [place] [facility] [address] [id number] [place] [address]- 8173 Oct, [facility] [place] [facility] [address] [id number] [place] [address]- 1704 Aug, [facility] [place] [facility] [address] [id number], [place] [address]- 3434 Aug, [facility] [address] [id number] [place] [address]- 8311 Jul, [facility] [place] [facility] [address] [facility] [id number], [place] [address]- 0324 Jul, [facility] [address] [facility] [id number] [place] [address]- 9406 Jul, [facility] [place] [facility] [address] [id number] [place] [address]- 0151 Jul, [facility] [address] [facility] [id number] [place] [address]- 7920 Jul, [facility] [place] [facility] [address] [facility] [id number] [place] [address]- 5616 Jul, [facility] [address] [id number], [place] [address]- 6125 Apr, [facility] [place] [facility] [address] [facility] [id number], [place] [address]- 4740 Dec, [facility] [address] [id number] [place] [address]- 8444 Nov, [facility] [place] [facility] [address] [id number], [place] [address]- 7901 Nov, [facility] [address] [id number] [place] [address]- 6868 Nov, [facility] [place] [facility] [address] [facility] [id number], [place] [address]- 2548 Oct, [facility] [place] [facility] [address] [facility] [id number], [place] [address]- 0891 Sep, [facility] [place] [facility] [address] [facility] [id number], [place] [address]- 5076 Sep, [facility] [place] [facility] [address] [facility] [id number], [place] [address]- 6874 Sep, [facility] [place] [facility] [address] [id number] [place] [address]- 4722 Sep, [facility] [place] [facility] [address] [id number] [place] [address]- 4984 Aug, [facility] [place] [facility] [address] [id number] [place] [address]- 1018 Aug, [facility] [place] [facility] [address] [id number] [place] [address]- 6476 Jul, [facility] [place] [facility] [address] [id number] [place] [address]- 2934 Jul, [facility] [place] [facility] [address] [id number] [place] [address]- 4783 28 Jun, 2012 [facility] [place] [facility] [address] [id number] [place] [address]- 0302 26 Jun, 2012 [facility] [place] [facility] [address] [id number] [place] [address]- 5277 24 Jun, 2012 [facility] [place] [facility] [address] [id number] [place] [address]- 2703 24 Jun, 2012 [facility] [place] [facility] [address] [id number] [place] [address]- 3287 12 Jun, 2012 [facility] [place] [facility] [address] [id number] [place] [address]- 3099 31 Apr, 2012 [facility] [place] [facility] [address] [id number] [place] [address]- 8772 30 Apr, 2012 [facility] [place] [facility] [address] [id number] [place] [address]- 6874 24 Apr, 2012 [facility] [place] [facility] [address] [id number] [place] [address]- 7078 Mar, [facility] [place] [facility] [address] [id number] [place] [address]- 1479 05 Mar, 2012 [facility] [place] [facility] [address] [id number] [place] [address]- 5976 Mar, [facility] [address] [id number] [place] [address]- 6567 February, [facility] [place] [facility] [address] [id number] [place] [address]- 1906 Jan, [facility] [place] [facility] [address] [id number] [place] [address]- 0442 Dec, [facility] [place] [facility] [address] [id number] [place] [address]- 9040 Dec, [facility] [place] [facility] [address] [id number] [place] [address]- 0052 Dec, [facility] [place] [facility] [address] [id number] [place] 6821 Dec, [facility] [place] [facility] [address] [id number] [place] [address] Dec, [facility] [place] [facility] [address] [id number] [place] [address] Nov, [facility] [place] [facility] [address] [id number] [place] [address] Nov, [facility] [place] [facility] [address] [id number] [place] [address] Oct, [facility] [place] [facility] [address] [id number] [place] [address] Oct, [facility] [place] [facility] [address] [id number] [place] [address] Oct, [facility] [place] [facility] [address] [id number] [place] [address] Sep, [facility] [place] [facility] [address] [id number] [place] [address] Aug, [facility] [place] [facility] [address] [id number] [place] [address] Aug, [facility] [place] [facility] [address] [id number] [place] [address] 28 Jul, 2011 [facility] [address] [id number] [place] [address] 24 Jul, 2011 [facility] [place] [facility] [address] [id number] [place] [address] 19 Jul, 2011 [facility] [address] [id number] [place] [address] 13 Jan, 2011 [facility] [place] [facility] [address] [id number] [place] [address] 29 Sep, 2010 [facility] [address] [id number] [place] [address] 27 Sep, 2010 [facility] [address] [id number] [place] [address] 20 Sep, 2010 [facility] [place] [facility] [address] [id number] [place] [address] 20 Sep, 2010 [facility] [address] [id number] [place] [address] 06 Sep, 2010 [facility] [place] [facility] [address] [id number] [place] [address] 16 Aug, 2010 [facility] [address] [id number] [place] [address] 16 Aug, 2010 [facility] [place] [facility] [address] [id number] [place] [address] 08 Aug, 2010 [facility] [place] [facility] [address] [id number] [place] [address] Jul, [facility] [place] [facility] [address] [id number] [place] [address] 19 Jul, 2010 [facility] [place] [facility] [address] [id number] [place] [address] Jul, [facility] [place] [facility] [address] [id number] [place] [address] May, [facility] [id number] [address] Apr, [facility] [id number], [place] [address] Dec, [facility] [address] [id number], [place] [address] Sep, [facility] [id number] [address] Sep, [facility] [id number] [address] Aug, [facility] [id number], [place] [address] Aug, [facility] [id number] [address] Jul, [facility] [id number], [place] [address] Mar, IMMUNIZATIONS No Known Immunizations SOCIAL HISTORY Never Assessed REASON FOR VISIT Prior Authorization Request PLAN OF CARE VITAL SIGNS MEDICATIONS Medication Instructions Dosage Frequency Start Date End Date Duration Status Robaxin 500 mg Orally 3 times a day 1 tablet 8h 90 days Active RESULTS No Results PROCEDURES [...]
--- OUTSIDE RECORDS SUMMARY | 2018-10-08 19:50 | XMS REPORT ---
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 Active 705759519 Problem Edema of both feet R60.0 Active 479842346 Problem Tobacco abuse Z72.0 Active 32427473 Problem Chronic migraine G43.709 Active 15678848 Problem Mixed hyperlipidemia E78.2 Active 708072463 Problem Spinal stenosis, lumbar region M48.06 Active 10359541 Problem Anxiety F41.9 Active 94764707 Problem Radiculopathy of lumbar region M54.16 Active 346278250 Problem Bulging lumbar disc M51.26 Active 742352437 Problem Asthma J45.909 Active 013762633 Problem Essential hypertension I10 Active 39557631 ALLERGIES No Information ENCOUNTERS Encounter Location Date Diagnosis [facility] [id number] [place] [address] 61483- 1825 Apr, Chronic pain G89.29 and Anxiety F41.9 [facility] [address] [place] [id number] [place] [address] 25987- 1179 Mar, HSV (herpes simplex virus) infection B00.9 ; Anxiety F41.9 and Chronic pain G89.29 [facility] [id number] [address]- 0272 Mar, [place] [id number] [place] [address] 99327- 2985 Mar, Chronic pain G89.29 [place] [address] [place] [address] [id number]- 1427 February, Chronic pain G89.29 [place] [address] 77661- 9726 Jan, Chronic pain G89.29 [place] [address] 82993- 7134 Jan, 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 [place] [address] 976852- 0553 Jan, Encounter for Depo-Provera contraception Z30.42 [place] [address] 93166- 3871 Jan, [place] [address] 49620- 0811 Jan, Chronic pain G89.29 and Anxiety F41.9 [place] [address] 83909- 9058 Jan, [place] [address] [id number] [place] [address] 57115- 2270 Dec, [place] [id number] [place] [address] 69997- 7454 Dec, Gastroesophageal reflux disease without esophagitis K21.9 and Anxiety F41.9 [place] [address] 74682- 5406 Dec, Essential hypertension I10 ; Mixed hyperlipidemia E78.2 ; Type 2 diabetes mellitus with diabetic neuropathy, unspecified E11.40 ; 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 ; Chronic pain G89.29 ; HSV (herpes simplex virus) infection B00.9 ; Anxiety F41.9 and Gastroesophageal reflux disease without esophagitis K21.9 [place] [address] [place] [address]- 2373 Dec, Chronic pain G89.29 and Chronic migraine G43.709 [place] [address] 56139- 9166 Nov, [place] [address] 44122- 3822 Nov, Essential hypertension I10 and Chronic pain G89.29 [place] [address] 76621- 1647 Nov, Chronic pain G89.29 ; Essential hypertension I10 and Type 2 diabetes mellitus without complication E11.[address] 50096- 6197 Oct, Chronic pain G89.[address] 85951- 8751 Oct, [place] [address] 72082- 5493 Sep, Type 2 diabetes mellitus without complication E11.9 ; Essential hypertension I10 ; group home (current) use of insulin Z79.4 ; Chronic migraine G43.709 ; Chronic pain G89.29 and Acute non-recurrent maxillary sinusitis J01.00 [place] [id number] [place] [address] 30053- 5535 Sep, Encounter for Depo-Provera contraception Z30.42 [place] [address] 17391- 2266 Sep, Chronic pain G89.29 and Radiculopathy of lumbar region M54.[address] 39769- 1063 Sep, [address] 49484- 8701 Sep, [address] 45299- 5684 Aug, Type 2 diabetes mellitus without complication E11.9 [facility] [address] [address] 1905 Aug, [facility] [id number] [place] [address] 71858- 9347 Aug, Radiculopathy of lumbar region M54.16 and Chronic pain G89.29 [facility] [id number] [place] [address] 25026- 3879 Aug, Type 2 diabetes mellitus without complication E11.9 [facility] [id number] [place] [address] 38819- 1506 Aug, Type 2 diabetes mellitus without complication E11.9 [facility] [id number] [place] [address] 85678- 8892 Jul, Type 2 diabetes mellitus without complication E11.9 [facility] [id number] [place] [address] 30239- 8764 Jul, [facility] [id number] [place] [address] 09315- 1695 Jul, Chronic pain G89.29 [facility] [id number] [place] [address] 89320- 8330 Jul, [facility] [address], [place] [address]- 6360 Jul, [facility] [id number] [place] [address] 97484- 7143 Jul, Type 2 diabetes mellitus without complication E11.9 [facility] [id number] [place] [address] 96308- 0907 Jul, [facility] [id number] [place] [address] 51635- 0178 Jul, Type 2 diabetes mellitus without complication E11.9 [facility] [id number] [place] [address] 39159- 2352 Jul, [facility] [id number] [place] [address] 44912- 7274 Jul, [facility] [address] 26919- 8893 Jul, [place] [id number] [place] [address] 31188- 0724 Jun, Type 2 diabetes mellitus without complication E11.9 [facility] [address] 35579- 2592 Jun, Chronic migraine G43.709 ; Type 2 diabetes mellitus without complication E11.9 ; Calculus of right kidney N20.0 ; Yeast dermatitis B37.2 and HSV (herpes simplex virus) infection B00.9 [place] [id number] [place] [address] 31089- 7272 Jun, Type 2 diabetes mellitus without complication E11.9 [place] [address] 23677- 6883 Jun, [place] [address] 02291- 7062 Jun, Radiculopathy of lumbar region M54.16 and Chronic pain G89.29 [place] [id number] [place] [address] 98431- 8688 Jun, Encounter for Depo-Provera contraception Z30.42 [place] [id number] [place] [address] 47742- 4937 Jun, Type 2 diabetes mellitus without complication E11.9 [place] [id number] [place] [address] 40639- 2710 Jun, [facility] [id number] [place] [address] 61457 -7780 May, Acute nasopharyngitis (common cold) J00 [facility] [address] 55914- 0855 May, Chronic pain G89.29 [place] [id number] [place] [address] 84168- 9729 May, Headache following lumbar puncture G97.1 [place] [id number] [place] [address] 00561- 7779 08 May, 2017 Radiculopathy of lumbar region M54.16 [place] [address] 20854- 4987 Apr, [place] [address] 35118- 8290 Apr, Type 2 diabetes mellitus without complication E11.9 ; Chronic pain G89.29 ; Essential hypertension I10 ; Radiculopathy of lumbar region M54.16 ; Spinal stenosis, lumbar region M48.06 ; Gastroesophageal reflux disease without esophagitis K21.9 ; HSV (herpes simplex virus) infection B00.9 ; Mixed hyperlipidemia E78.2 ; Anxiety F41.9 and Asthma J45.909 [place] [address] 47316- 8803 Apr, Encounter for Depo-Provera contraception Z30.42 [place] [id number] [place] [address] 17916- 9757 Apr, Chronic pain G89.29 and Anxiety F41.9 [place] [id number] [place] [address] 28600- 9858 Mar, [place] [address] 97960- 5214 Mar, [place] [address] 52970- 2361 Mar, Mixed hyperlipidemia E78.2 [place] [id number] [place] [address] 08910- 6667 Mar, Type 2 diabetes mellitus without complication E11.9 ; Chronic pain G89.29 ; Essential hypertension I10 ; Radiculopathy of lumbar region M54.16 ; Spinal stenosis, lumbar region M48.06 ; Gastroesophageal reflux disease without esophagitis K21.9 ; HSV (herpes simplex virus) infection B00.9 ; Mixed hyperlipidemia E78.2 and Anxiety F41.9 [facility] [id number] [place] [address] 31832- 4789 Mar, [facility] [id number] [place] [address] 51772- 0636 Mar, [facility] [id number] [place] [address] 54291- 8246 Mar, [facility] [id number] [place] [address] 43099- 2594 February, Chronic pain G89.29 [place] [id number] [place] [address] 66633- 4892 February, [facility] [id number] [place] [address] 88426- 2433 Jan, Chronic pain G89.29 [facility] [id number] [place] [address] 84507- 4731 Jan, Type 2 diabetes mellitus without complication E11.9 [place] [id number] [place] [address] 39694- 8640 Jan, [facility] [id number] [place] [address] 89274- 6801 Jan, [place] [id number] [place] [address] 80734- 9140 Jan, [facility] [id number] [place] [address] 61569- 8190 Jan, Type 2 diabetes mellitus without complication [...] J01.00 and Encounter for Depo-Provera contraception Z30.42 [place] [id number] [place] [address] 83955- 2304 Dec, Chronic pain G89.29 [place] [id number] [place] [address] 55283- 9131 Dec, Abnormal ankle brachial index (BERNARDINO) R68.89 [place] [address] 56163- 7240 Dec, [place] [address] 706344- 1578 15 Dec, 2016 Routine gynecological examination Z01.419 ; Chronic pain G89.29 ; Screening breast examination Z12.39 ; Type 2 diabetes mellitus without complication E11.9 ; Essential hypertension I10 ; Radiculopathy of lumbar region M54.16 ; Spinal stenosis, lumbar region M48.06 ; Gastroesophageal reflux disease without esophagitis K21.9 ; Encounter for surveillance of injectable contraceptive Z30.42 ; HSV (herpes simplex virus) infection B00.9 and Allergic rhinitis 477.9 [place] [address] [place] [id number] [place] [address] 83207- 5501 28 Nov, 2016 Chronic pain G89.29 [place] [id number] [place] [address] 33686- 8971 02 Nov, 2016 Chronic pain G89.29 ; [...] mucoid otitis media of both ears H65.113 [place] [address] [id number] [place] [address] 04848- 1253 Oct, [facility] [id number] [place] [address] 87836- 1591 Oct, Chronic pain G89.29 [facility] [id number] [place] [address] 56078- 9051 Oct, Chronic pain G89.29 [facility] [id number] [place] [address] 66634- 8103 Sep, Chronic pain G89.29 ; Type 2 diabetes mellitus without complication E11.9 ; Essential hypertension I10 ; Radiculopathy of lumbar region M54.16 ; Spinal stenosis, lumbar region M48.06 ; Gastroesophageal reflux disease without esophagitis K21.9 ; Encounter for surveillance of injectable contraceptive Z30.42 ; Bilateral cold feet R20.9 ; Pain of left foot M79.672 and Pain in right foot M79.671 [place] [address] [id number] [place] [address] 75937- 4453 Sep, [facility] [id number] [place] [address] 83322- 1537 Aug, [place] [id number] [place] [address] 32895- 1000 Aug, [facility] [id number] [place] [address] 00635- 2863 Aug, Chronic pain G89.29 ; Type 2 diabetes mellitus without complication E11.9 ; Essential hypertension I10 ; Rash and nonspecific skin eruption R21 and Upper respiratory infection, acute J06.9 [place] [address] [id number] [place] [address] 85904- 6933 Aug, [place] [address] 84782- 9960 Aug, [facility] [id number] [place] [address] 28493- 0503 Jul, [place] [id number] [place] [address] 63673- 2887 Jul, Dysuria R30.0 ; Encounter for Depo-Provera contraception Z30.42 ; Herpes simplex B00.9 ; Nausea & vomiting R11.2 and Asthma J45.909 [facility] [id number] [place] [address] 36587- 5620 Jun, Dysuria R30.0 [facility] [id number] [place] [address] 74083- 0592 19 Jun, 2016 Dysuria R30.0 [facility] [address] 22434- 0507 15 Jun, 2016 [place] [address] 83473- 3307 13 Jun, 2016 [facility] [address] 46567- 4816 May, [facility] [address] 18419- 5199 May, [facility] [id number] [place] [address] 11773- 8317 May, Chronic pain G89.29 ; Essential hypertension I10 ; Type 2 diabetes mellitus without complication E11.9 ; Edema of both feet R60.0 and Rash and nonspecific skin eruption R21 [place] [address] [id number] [place] [address] 56963- 2728 Apr, [facility] [id number] [place] [address] 81935- 5598 Mar, Carpal tunnel syndrome, left upper limb G56.02 and Carpal tunnel syndrome, right upper limb G56.01 [place] [address] 25693- 1045 Mar, [facility] [address] 15190- 7789 Mar, Encounter for Depo-Provera contraception Z30.42 [facility] [address] 99022- 5507 February, [place] [address] [id number] [place] [address] 25560- 6424 February, [place] [address] [id number] [place] [address] 18020- 9278 February, Chronic pain G89.29 ; Essential hypertension I10 ; Type 2 diabetes mellitus without complication E11.9 ; HSV (herpes simplex virus) infection B00.9 ; Anxiety F41.9 ; Hypersomnia G47.10 ; Tobacco abuse Z72.0 ; Hand pain, left M79.642 ; Hand pain, right M79.641 ; Left foot pain M79.672 and Heart palpitations R00.2 [place] [address] [id number] [place] [address] 51844- 6759 Jan, [place] [address] [id number] [place] [address] 56398- 9487 Jan, [place] [address] [address] [id number] [place] [address] 74056- 4694 Jan, [place] [address] [id number] [place] [address] 94360- 7000 Jan, [place] [address] [id number] [place] [address] 22982- 2750 Jan, Upper respiratory infection J06.9 and Type 2 diabetes mellitus without complication E11.9 [place] [address] [place] [address] [id number] [place] [address] 89523- 0403 Dec, [place] [address] [address] [id number] [place] [address] 74937- 3946 Dec, Chronic pain G89.29 ; Essential hypertension I10 ; Type 2 diabetes mellitus without complication E11.9 ; HSV (herpes simplex virus) infection B00.9 ; Anxiety F41.9 ; Upper respiratory infection J06.9 ; Hypersomnia G47.10 and Tobacco abuse Z72.0 [place] [address] [id number] [place] [address] 94828- 9537 Dec, Encounter for Depo-Provera contraception Z30.42 [place] [address] [place] [address] [id number] [place] [address] 05524- 0562 Dec, [place] [address] 32462- 3479 Dec, Chronic pain G89.29 ; Sinusitis J32.9 ; Snoring R06.83 and Daytime hypersomnia G47.19 [place] [address] 92166- 5781 Nov, HSV (herpes simplex virus) infection B00.9 ; Encounter for Papanicolaou smear for cervical cancer screening Z12.4 ; Screening for STD sexually transmitted disease Z11.3 and Bartholin's gland cyst N75.0 [place] [address] 21372- 1715 Nov, [place] [address] 20188- 7702 Nov, [place] [address] 66203- 7878 Nov, Essential hypertension I10 ; Type 2 diabetes mellitus without complication E11.9 ; HSV (herpes simplex virus) infection B00.9 ; Spinal stenosis, lumbar region M48.06 and Vaginal yeast infection B37.3 [place] [address] [place] [address] [id number] [place] [address] 94731- 4217 Nov, [place] [address] [place] [address] [id number] [place] [address] 71500- 3499 Nov, [place] [address] 78135- 4676 Oct, [place] [address] 35540- 9570 Oct, HSV (herpes simplex virus) infection B00.9 ; Yeast infection B37.9 ; Change in bowel habit R19.4 ; Nausea & vomiting R11.2 and Gastroesophageal reflux disease without esophagitis K21.9 [place] [address] [id number] [place] [address] 30172- 0488 Oct, [place] [address] 47651- 0919 Oct, Type 2 diabetes mellitus without complication E11.9 ; Essential hypertension I10 and Acute maxillary sinusitis, recurrence not specified J01.[address] 47774- 1873 Oct, [place] [address] 13299- 9290 Oct, [address] 16769- 3397 Oct, Exposure to head lice Z20.7 ; Blood glucose abnormal R73.09 ; Boil of buttock L02.32 and Type 2 diabetes mellitus without complication E11.9 [place] [address] 65509- 8175 Oct, [address] 20393- 8124 Sep, [address] 81099- 1798 Sep, [address] 28426- 8997 Aug, Encounter for Depo-Provera contraception Z30.[address] 28790- 6380 Aug, Anxiety F41.9 ; Spinal stenosis, lumbar region M48.06 ; Radiculopathy of lumbar region M54.16 ; Asthma J45.909 ; GERD (gastroesophageal reflux disease) K21.9 ; Essential hypertension I10 and Long-term use of high- risk medication Z79.[address] 15201- 1137 Jul, [place] [address] [place] [address] [id number] [place] [address] 02062- 7995 Jun, Hemorrhoid 455.[address] 06450- 6976 Jun, [address] 62998- 8712 Jun, Anxiety 300.00 ; Asthma 493.90 ; Hyperhidrosis 705.21 ; Chest discomfort 786.59 and Upper respiratory infection 465.[address] 28912- 0425 May, Encounter for Depo-Provera contraception V25.[address] 17006- 0399 May, [address] 59017- 9546 May, [address] 37025- 0792 May, Spinal stenosis of lumbar region with radiculopathy 724.02 ; Bulging of intervertebral disc between L4 and L5 722.10 ; GERD ( gastroesophageal reflux disease) 530.81 ; Chronic pain 338.29 ; Declining mobility 799.89 and Epigastric pain 789.[address] 32607- 7456 Apr, [address] 88380- 5022 Apr, Nausea 787.02 and Heart burn 787.[address] 59215- 7063 Mar, Lumbago 724.2 ; Vitamin D deficiency 268.9 ; Anxiety 300.00 ; Allergic rhinitis 477.9 and Contraceptive surveillance V25.[address] 06817- 4348 February, 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 ; Chronic pain 338.29 and Vaginal discharge 623.5 [facility] [address] [address]- 8000 February, [facility] [address] [facility] [id number] [address]- 3027 February, [facility] [id number] [place] [address] 34725- 0105 Jan, [facility] [address] [facility]] [id number] [place] [address] 70762- 2308 Jan, [facility] [id number] [place] [address], [place] [address]- 6131 Dec, [facility] [id number] [place] [address] 92761- 1835 Dec, [facility] [id number] [place] [address] 73516- 1215 Dec, [facility] [address] [address]- 8726 Dec, [facility] [address] [address]- 6949 Dec, [facility] [address] [address]- 7770 Dec, [facility] [id number] [address]- 2697 Dec, [facility] [address] [facility]] [id number], [place] [address]- 8048 Dec, [facility] [address] [address]- 9432 Dec, [facility] [address] [facility]] [id number] 0819 Dec, [facility] [address] [address]- 1620 Dec, 2014 [facility] [place] [facility] [address] [facility]] [id number] [place] [address]- 0961 Dec, [facility] [place] [facility] [address] [facility]] [id number] [place] [address]- 8967 Nov, 2014 [facility] [place] [facility] [address] [facility]] [id number] [place] [address]- 8230 Nov, 2014 [facility] [place] [facility] [address] [facility]] [id number] [place] [address]- 1901 24 Nov, 2014 [facility] [place] [facility] [address] [facility]] [id number] [place] [address]- 5217 24 Nov, 2014 [facility] [place] [facility] [address] [facility]] [id number] [place] [address]- 1055 23 Nov, 2014 [facility] [place] [facility] [address] [facility]] [id number] [place] [address]- 3284 23 Nov, 2014 [facility] [place] [facility] [address] [facility]] [id number] [place] [address]- 2549 16 Nov, 2014 [facility] [place] [facility] [address] [facility]] [id number] [place] [address]- 8052 16 Nov, 2014 [facility] [place] [facility] [address] [facility]] [id number] [place] [address]- 0309 13 Nov, 2014 [facility] [place] [facility] [address] [facility]] [id number] [place] [address] 13 Nov, 2014 [facility] [place] [facility] [address] [facility][NOTE 3] [id number] [place] [address] 13 Nov, 2014 [facility] [place] [facility] [address] [facility][NOTE 3] [id number] [place] [address] 13 Nov, 2014 [facility] [place] [facility] [address] [facility][NOTE 3] [id number] [place] [address] 13 Nov, 2014 [facility] [place] [facility] [address] [facility][NOTE 3] [id number] [place] [address]- 2016 Nov, 2014 [facility] [place] [facility] [address] [id number] [place] [address] Nov, 2014 [facility] [place] [facility] [address] [id number] [place] [address] Nov, 2014 [facility] [place] [facility] [address] [facility][NOTE 3] [id number] [place] [address] Nov, 2014 [facility] [place] [facility] [address] [id number] [place] [address] Nov, 2014 [facility] [place] [facility] [address] [id number] [place] [address] Nov, 2014 [facility] [place] [facility] [address] [id number] [place] [address] 7533 Nov, 2014 [facility] [place] [facility] [address] [id number] [place] [address]- 7646 Nov, 2014 [facility] [place] [facility] [address] [id number] [place] [address]- 7286 Nov, 2014 [facility] [place] [facility] [address] [id number] [place] [address] 7635 Nov, [facility] [place] [facility] [address] [facility]NOTE 3] [id number] [place] [address]- 5838 Oct, [facility] [place] [facility] [address] [id number] [place] [address]500 Oct, [facility] [place] [facility] [address] [id number] [place] [address]- 0422 Oct, [facility] [place] [facility] [address] [id number] [place] [address] 2827 Oct, [facility] [place] [facility] [address] [id number] [place] [address]- 7162 Oct, [facility] [place] [facility] [address] [facility]NOTE 3] [id number] [place] [address]- 5648 Oct, [facility] [place] [facility] [address] [id number] [place] [address]- 8535 Oct, [facility] [address] [id number] [place] [address]- 6774 Oct, [facility] [place] [facility] [address] [id number] [place] [address]- 1707 Oct, [facility] [place] [facility] [address] [id number] [place] [address]- 6465 Oct, [facility] [place] [facility] [address] [id number] [place] [address]- 9774 Oct, [facility] [place] [facility] [address] [id number] [place] [address]- 3744 Oct, [facility] [place] [facility] [address] [id number] [place] [address]- 4650 Oct, [facility] [place] [facility] [address] [id number] [place] [address]- 6675 Oct, [facility] [place] [facility] [address] [id number] [place] [address]- 0441 Oct, [facility] [place] [facility] [address] [id number] [place] [address]- 9435 Oct, [facility] [place] [facility] [address] [id number] [place] [address]- 5854 Oct, [facility] [place] [facility] [address] [id number] [place] [address]- 6608 Oct, [facility] [place] [facility] [address] [id number] [place] [address]- 1386 Oct, [facility] [place] [facility] [address] [id number] [place] [address]- 9465 Oct, [facility] [place] [facility] [address] [id number] [place] [address]- 8426 Oct, [facility] [place] [facility] [address] [id number] [place] [address]- 6528 Sep, [facility] [place] [facility] [address] [id number] [place] [address]- 2221 29 Sep, 2014 [facility] [place] [facility] [address] [id number] [place] [address]- 0655 18 Sep, 2014 [facility] [place] [facility] [address] [id number] [place] [address]- 6886 18 Sep, 2014 [facility] [place] [facility] [address] [id number] [place] [address]- 3183 17 Sep, 2014 [facility] [place] [facility] [address] [id number] [place] [address]- 9744 17 Sep, 2014 [facility] [place] [facility] [address] [id number] [place] [address]- 6279 15 Sep, 2014 [facility] [place] [facility] [address] [id number] [place] [address]- 0130 15 Sep, 2014 [facility] [place] [facility] [address] [id number] [place] [address]- 1621 12 Sep, 2014 [facility] [place] [facility] [address] [id number] [place] [address]- 4896 12 Sep, 2014 [facility] [place] [facility] [address] [id number] [place] [address]- 3572 Sep, [facility] [place] [facility] [address] [id number] [place] [address]- 7436 Sep, [facility] [place] [facility] [address] [id number] [place] [address]- 0856 Sep, [facility] [place] [facility] [address] [id number] [place] [address]- 0450 Sep, [facility] [place] [facility] [address] [id number] [place] [address]- 8144 Sep, [facility] [place] [facility] [address] [id number] [place] [address]- 1825 11 Sep, 2014 [facility] [place] [facility] [address] [id number] [place] [address]- 8631 Sep, [facility] [place] [facility] [address] [id number] [place] [address]- 2004 Sep, [facility] [place] [facility] [address] [id number] [place] [address]- 4952 Sep, [facility] [place] [facility] [address] [id number] [place] [address]- 3250 Sep, [facility] [place] [facility] [address] [id number] [place] [address]- 3717 Aug, [facility] [place] [facility] [address] [id number] [place] [address]- 5828 Aug, [facility] [place] [facility] [address] [id number] [place] [address]- 4230 Aug, [facility] [place] [facility] [address] [id number] [place] [address]- 5081 Aug, [facility] [place] [facility] [address] [id number] [place] [address]- 6660 Aug, [facility] [place] [facility] [address] [id number] [place] [address]- 2415 Aug, [facility] [place] [facility] [address] [facility]NOTE 3] [id number] [place] [address]- 3261 Aug, [facility] [place] [facility] [address] [id number] [place] [address]- 0148 Aug, [facility] [place] [facility] [address] [id number] [place] [address]- 6240 Aug, [facility] [place] [facility] [address] [id number] [place] [address]- 7312 Jul, [facility] [place] [facility] [address] [id number] [place] [address]- 9812 Jul, [facility] [place] [facility] [address] [id number] [place] [address]- 4629 Jul, [facility] [place] [facility] [address] [id number] [place] [address]- 8862 23 Jul, 2013 [facility] [place] [facility] [address] [id number] [place] [address]- 0814 Jul, 2013 [facility] [place] [facility] [address] [id number] [place] [address]- 0912 16 Jul, 2013 [facility] [place] [facility] [address] [id number] [place] [address]- 1851 Jul, [facility] [place] [facility] [address] [id number] [place] [address]- 1077 Jul, 2013 [facility] [place] [facility] [address] [id number] [place] [address]- 6409 Jul, [facility] [place] [facility] [address] [id number] [place] [address]- 2477 Jul, [facility] [place] [facility] [address] [id number] [place] [address]- 5082 Jul, [facility] [place] [facility] [address] [id number] [place] [address]- 2160 Jul, [facility] [place] [facility] [address] [id number] [place] [address]- 1814 07 Jul, 2014 [facility] [place] [facility] [address] [id number] [place] [address]- 7062 Jul, [facility] [place] [facility] [address] [id number] [place] [address]- 7142 30 Jun, 2013 [facility] [place] [facility] [address] [id number] [place] [address]- 8455 30 Jun, 2013 [facility] [place] [facility] [address] [id number] [place] [address]- 4328 25 Jun, 2013 [facility] [place] [facility] [address] [id number] [place] [address]- 7485 25 Jun, 2013 [facility] [place] [facility] [address] [id number] [place] [address]- 6027 25 Sep, 2013 [facility] [place] [facility] [address] [id number] [place] [address] 2546 25 Sep, 2013 [facility] [place] [facility] [address] [id number] [place] [address]- 6486 24 Sep, 2013 [facility] [place] [facility] [address] [id number] [place] [address] 2546 24 Sep, 2013 [facility] [place] [facility] [address] [id number] [place] [address]- 8332 22 Sep, 2013 [facility] [place] [facility] [address] [id number] [place] [address]- 1492 22 Sep, 2013 [facility] [place] [facility] [address] [id number] [place] [address]- 4818 17 Sep, 2013 [facility] [place] [facility] [address] [id number] [place] [address]- 1662 17 Sep, 2013 [facility] [place] [facility] [address] [id number] [place] [address]- 2864 16 Sep, 2013 [facility] [place] [facility] [address] [id number] [place] [address]- 5709 16 Sep, 2013 [facility] [place] [facility] [address] [id number] [place] [address]- 2503 15 Sep, 2013 [facility] [place] [facility] [address] [id number] [place] [address]- 2701 15 Jun, 2013 [facility] [place] [facility] [address] [id number], [place] [address] 2544 12 Sep, 2013 [facility] [place] [facility] [address] [id number] [place] [address] 2546 12 Sep, 2013 [facility] [place] [facility] [address] [id number] [place] [address]- 254 11 Sep, 2013 [facility] [place] [facility] [address] [id number] [place] [address]- 2546 11 Sep, 2013 [facility] [place] [facility] [address] [id number] [place] [address]- 6301 11 Jun, 2013 [facility] [place] [facility] [address] [id number] [place] [address]- 5385 Jun, 2013 [facility] [place] [facility] [address] [id number] [place] [address]- 5682 Jun, [facility] [place] [facility] [address] [id number] [place] [address]- 1566 Jun, [facility] [place] [facility] [address] [id number] [place] [address]- 5055 Jun, [facility] [place] [facility] [address] [id number] [place] [address]- 7007 Jun, [facility] [place] [facility] [address] [id number] [place] [address]- 2037 May, [facility] [place] [facility] [address] [id number] [place] [address]- 2260 May, [facility] [place] [facility] [address] [id number] [place] [address]- 0823 May, [facility] [place] [facility] [address] [id number] [place] [address]- 3763 May, [facility] [place] [facility] [address] [id number] [place] [address]- 0928 May, [facility] [place] [facility] [address] [id number] [place] [address]- 4048 May, [facility] [place] [facility] [address] [id number] [place] [address]- 9762 May, [facility] [place] [facility] [address] [id number] [place] [address]- 7207 May, [facility] [place] [facility] [address] [id number] [place] [address]- 4296 May, [facility] [place] [facility] [address] [id number] [place] [address]- 5648 May, [facility] [place] [facility] [address] [id number] [place] [address]- 3473 May, [facility] [place] [facility] [address] [id number] [place] [address]- 1979 May, [facility] [place] [facility] [address] [id number] [place] [address]- 0313 May, [facility] [place] [facility] [address] [id number] [place] [address]- 8087 Apr, [facility] [place] [facility] [address] [id number] [place] [address]- 7140 Apr, [facility] [place] [facility] [address] [id number] [place] [address]- 1901 Apr, [facility] [place] [facility] [address] [id number] [place] [address]- 0149 Apr, [facility] [place] [facility] [address] [id number] [place] [address]- 9002 Apr, [facility] [place] [facility] [address] [id number] [place] [address]- 6973 Mar, [facility] [place] [facility] [address] [id number] [place] [address]- 9568 Mar, [facility] [place] [facility] [address] [id number] [place] [address]- 1791 Mar, [facility] [place] [facility] [address] [id number] [place] [address]- 9234 February, [facility] [place] [facility] [address] [id number] [place] [address]- 1238 February, [facility] [place] [facility] [address] [id number] [place] [address]- 7966 February, [facility] [place] [facility] [address] [id number] [place] [address]- 5183 February, [facility] [place] [facility] [address] [id number] [place] [address]- 7885 February, [facility] [place] [facility] [address] [id number] [place] [address]- 8129 February, [facility] [place] [facility] [address] [id number] [place] February, [facility] [place] [facility] [address] [id number] [place] [address]- 3176 February, [facility] [place] [facility] [address] [id number] [place] [address]- 1293 February, [facility] [place] [facility] [address] [id number] [place] [address]- 9888 Jan, [facility] [place] [facility] [address] [id number] [place] [address]- 5431 Jan, [facility] [place] [facility] [address] [id number] [place] [address]- 4378 Jan, [facility] [place] [facility] [address] [id number] [place] [address]- 6946 Jan, [facility] [place] [facility] [address] [id number] [place] [address]- 8382 Jan, [facility] [place] [facility] [address] [facility] [id number] [place] [address]- 3755 Dec, [facility] [place] [facility] [address] [id number] [place] [address]- 2893 Dec, [facility] [place] [facility] [address] [id number] [place] [address]- 8792 Dec, [facility] [place] [facility] [address] [id number] [place] [address]- 5636 Dec, [facility] [place] [facility] [address] [id number] [place] [address]- 8925 Dec, [facility] [place] [facility] [address] [id number] [place] [address]- 6906 Nov, [facility] [place] [facility] [address] [id number] [place] [address]- 5401 Nov, [facility] [place] [facility] [address] [id number] [place] [address]- 4916 Nov, [facility] [place] [facility] [address] [id number] [place] [address]- 2211 Nov, [facility] [place] [facility] [address] [id number] [place] [address]- 3729 Oct, [facility] [place] [facility] [address] [id number] [place] [address]- 5864 Oct, [facility] [place] [facility] [address] [id number] [place] [address]- 5633 Oct, [facility] [place] [facility] [address] [id number] [place] [address]- 8206 Oct, [facility] [place] [facility] [address] [id number] [place] [address]- 7157 Oct, [facility] [place] [facility] [address] [id number] [place] [address]- 7606 Oct, [facility] [place] [facility] [address] [id number] [place] [address]- 3951 Oct, [facility] [place] [facility] [address] [id number] [place] [address]- 1791 Oct, [facility] [place] [facility] [address] [id number] [place] [address]- 8746 Oct, [facility] [place] [facility] [address] [id number] [place] [address]- 1774 Oct, [facility] [place] [facility] [address] [id number] [place] [address]- 6451 Aug, [facility] [place] [facility] [address] [id number] [place] [address]- 7185 Aug, [facility] [place] [facility] [address] [id number] [place] [address]- 5476 Jul, [facility] [place] [facility] [address] [id number] [place] [address]- 9388 Jul, [facility] [place] [facility] [address] [id number] [place] [address]- 8336 Jul, [facility] [place] [facility] [address] [id number] [place] [address]- 5493 Jul, [facility] [place] [facility] [address] [id number] [place] [address]- 8500 Jul, [facility] [place] [facility] [address] [id number] [place] [address]- 7859 Jul, [facility] [place] [facility] [address] [id number] [place] [address]- 7530 Apr, [facility] [place] [facility] [address] [id number] [place] [address]- 4777 Dec, [facility] [place] [facility] [address] [id number] [place] [address]- 3485 Nov, [facility] [place] [facility] [address] [id number] [place] [address]- 4152 Nov, [facility] [place] [facility] [address] [id number] [place] [address]- 1828 Nov, [facility] [place] [facility] [address] [id number], [place] [address]- 5528 Oct, [facility] [place] [facility] [address] [id number], [place] [address]- 7307 Sep, [facility] [place] [facility] [address] [id number] [place] [address]- 5083 Sep, [facility] [place] [facility] [address] [id number] [place] [address]- 3703 Sep, [facility] [place] [facility] [address] [id number] [place] [address]- 8247 Sep, [facility] [place] [facility] [address] [id number] [place] [address]- 7586 13 Aug, 2012 [facility] [place] [facility] [address] [id number] [place] [address]- 3101 13 Aug, 2012 [facility] [place] [facility] [address] [id number] [place] [address]- 8336 Jul, [facility] [place] [facility] [address] [id number] [place] [address]- 3438 Jul, [facility] [place] [facility] [address] [id number] [place] [address]- 0174 28 Jun, 2012 [facility] [place] [facility] [address] [id number] [place]30 26 Jun, 2012 [facility] [place] [facility] [address] [id number] [place] [address]- 4865 24 Jun, 2012 [facility] [place] [facility] [address] [id number] [place] [address]- 3863 24 Jun, 2012 [facility] [place] [facility] [address] [id number] [place] [address]- 4283 12 Jun, 2012 [facility] [place] [facility] [address] [id number] [place] [address]- 0750 Apr, [facility] [place] [facility] [address] [id number] [place] [address]- 9369 30 Apr, 2012 [facility] [place] [facility] [address] [id number] [place] [address]- 8311 Apr, [facility] [place] [facility] [address] [id number] [place] [address] Mar, [facility] [place] [facility] [address] [id number] [place] [address] Mar, [facility] [place] [facility] [address] [id number] [place] [address] Mar, [facility] [place] [facility] [address] [id number] [place] [address] February, [facility] [address] [id number] [place] [address] 18 Jan, 2012 [facility] [place] [facility] [address] [id number] [place] [address] Dec, [facility] [place] [facility] [address] [id number] [place] [address] Dec, [facility] [place] [facility] [address] [id number] [place] [address] Dec, [facility] [place] [facility] [address] [id number] [place] [address] Dec, [facility] [place] [facility] [address] [id number] [place] [address] Dec, [facility] [place] [facility] [address] [id number] [place] [address] 14 Nov, 2011 [facility] [place] [facility] [address] [id number] [place] [address] 13 Nov, 2011 [facility] [place] [facility] [address] [id number] [place] [address] Oct, [facility] [place] [facility] [address] [id number] [place] [address] Oct, [facility] [place] [facility] [address] [id number] [place] [address] Oct, [facility] [place] [facility] [address] [id number] [address] Sep, [facility] [place] [facility] [address] [id number] [place] [address] Aug, [facility] [place] [facility] [address] [id number] [place] [address] 10 Aug, 2011 [facility] [place] [facility] [address] [id number] [place] [address] 28 Jul, 2011 [facility] [place] [facility] [address] [id number] [place] [address] 24 Jul, 2011 [facility] [address] [id number] [place] [address] 19 Jul, 2011 [facility] [place] [facility] [address] [id number] [place] [address] 13 Jan, 2011 [facility] [place] [facility] [address] [id number] [place] [address] 29 Sep, 2010 [facility] [place] [facility] [address] [id number] [place] [address] 27 Sep, 2010 [facility] [place] [facility] [address] [id number] [place] [address] Sep, [facility] [place] [facility] [address] [id number] [place] [address] Sep, [facility] [address] [id number] [place] [address] 06 Sep, 2010 [facility] [place] [facility] [address] [id number] [place] [address] 16 Aug, 2010 [facility] [place] [facility] [address] [id number] [place] [address] 16 Aug, 2010 [facility] [place] [facility] [address] [id number] [place] [address] 08 Aug, 2010 [facility] [place] [facility] [address] [id number] [place] [address] Jul, [facility] [place] [facility] [address] [id number] [place] [address] Jul, [facility] [place] [facility] [address] [id number] [place] [address] Jul, [facility] [place] [facility] [address] [id number] [place] [address] May, [facility] [place] [facility] [address] [id number] [place] [address] 13 Apr, 2010 [facility] [address] [id number] [address] Dec, [facility] [id number] [address] Sep, [facility] [id number] [place] [address] Sep, [facility] [id number] [place] [address] Aug, [facility] [id number] [place] [address] Aug, [facility] [id number] [place] [address] Jul, [facility] [address] [id number] [address] Mar, IMMUNIZATIONS Vaccine Route Administration Date Status DEPO PROVERA (150 MG/ML) IM Intramuscular January 27, 2018 Administered SOCIAL HISTORY Never Assessed REASON FOR VISIT Depo Provera injection--[facility] PLAN OF CARE Activity Details Follow Up 3 Months Reason: VITAL SIGNS MEDICATIONS Unknown Medications RESULTS Name Result Date Reference Range TEST, URINE (IN HOUSE) 2018-01-27 RESULTS Negative Lot # [id number] Control + Exp date 08/20/19 PROCEDURES Procedure Date Ordered Result Body Site URINE TEST January 27, 2018 DEPO PROVERA (150 MG/ML) January 27, 2018 THER/PROPH/DIAG INJ, SC/IM January 27, 2018 INSTRUCTIONS MEDICATIONS ADMINISTERED No Known Medications [...]
--- OUTSIDE RECORDS SUMMARY | 2018-10-08 19:50 | XMS REPORT ---
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 281828080 Problem Edema of both feet R60.0 Active 347781438 Problem Tobacco abuse Z72.0 Active 84260558 Problem Chronic migraine G43.709 Active 60081092 Problem Mixed hyperlipidemia E78.2 Active 832272939 Problem Spinal stenosis, lumbar region M48.06 Active 57972293 Problem Anxiety F41.9 Active 99309799 Problem Radiculopathy of lumbar region M54.16 Active 698713182 Problem Bulging lumbar disc M51.26 Active 002576009 Problem Asthma J45.909 Active 110366114 Problem Essential hypertension I10 Active 53060962 ALLERGIES No Information ENCOUNTERS Encounter Location Date Diagnosis [facility] [id number] [place] [address] 97185- 6094 Apr, Chronic pain G89.29 and Anxiety F41.9 [facility] [address] [place], [place] [id number] [place] [address] 53595- 4556 Mar, HSV (herpes simplex virus) infection B00.9 ; Anxiety F41.9 and Chronic pain G89.29 [facility] [id number] [address] 9[address] Mar, [place] [id number] [place] [address] 49418- 6666 Mar, Chronic pain G89.29 [place] [address] [address]- 4150 February, Chronic pain G89.29 [place] [address] 58918- 0855 Jan, Chronic pain G89.29 [place] [address] 32464- 9949 Jan, 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 [place] [address] 273124- 0118 Jan, Encounter for Depo-Provera contraception Z30.42 [place] [address] 88556- 6694 Jan, [place] [address] 81111- 8654 Jan, Chronic pain G89.29 and Anxiety F41.9 [place] [address] 90070- 1758 Jan, [place] [id number] [place] [address] 54870- 8621 Dec, [place] [id number] [place] [address] 79616- 1663 Dec, Gastroesophageal reflux disease without esophagitis K21.9 and Anxiety F41.9 [place] [address] 09691- 5955 Dec, Essential hypertension I10 ; Mixed hyperlipidemia E78.2 ; Type 2 diabetes mellitus with diabetic neuropathy, unspecified E11.40 ; 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 ; Chronic pain G89.29 ; HSV (herpes simplex virus) infection B00.9 ; Anxiety F41.9 and Gastroesophageal reflux disease without esophagitis K21.9 [place] [address] [place] [address]- 7562 Dec, Chronic pain G89.29 and Chronic migraine G43.709 [place] [address] 81703- 0334 Nov, [place] [address] 49173- 0722 Nov, Essential hypertension I10 and Chronic pain G89.29 [place] [address] 44545- 9032 Nov, Chronic pain G89.29 ; Essential hypertension I10 and Type 2 diabetes mellitus without complication E11.[address] 11918- 6829 Oct, Chronic pain G89.[address] 04708- 4092 Oct, [place] [address] 40050- 2984 Sep, Type 2 diabetes mellitus without complication E11.9 ; Essential hypertension I10 ; correction (current) use of insulin Z79.4 ; Chronic migraine G43.709 ; Chronic pain G89.29 and Acute non-recurrent maxillary sinusitis J01.00 [place] [id number] [place] [address] 05992- 4343 Sep, Encounter for Depo-Provera contraception Z30.42 [place] [address] 60576- 0511 Sep, Chronic pain G89.29 and Radiculopathy of lumbar region M54.[address] 11814- 9521 Sep, [address] 40878- 7379 Sep, [address] 05410- 9731 Aug, Type 2 diabetes mellitus without complication E11.9 [facility] [address] [address]- 1491 Aug, [facility] [id number] [place] [address] 18550- 8175 Aug, Radiculopathy of lumbar region M54.16 and Chronic pain G89.29 [facility] [id number] [place] [address] 39827- 8999 Aug, Type 2 diabetes mellitus without complication E11.9 [facility] [id number] [place] [address] 70870- 7496 Aug, Type 2 diabetes mellitus without complication E11.9 [facility] [id number] [place] [address] 87180- 7554 Jul, Type 2 diabetes mellitus without complication E11.9 [facility] [id number] [place] [address] 68078- 5887 Jul, [facility] [id number] [place] [address] 12537- 9713 Jul, Chronic pain G89.29 [facility] [id number] [place] [address] 23180- 6334 Jul, [facility] [address], [place] [address]- 0665 Jul, [facility] [id number] [place] [address] 61679- 0990 Jul, Type 2 diabetes mellitus without complication E11.9 [facility] [id number] [place] [address] 54306- 5508 Jul, [facility] [id number] [place] [address] 93610- 8369 Jul, Type 2 diabetes mellitus without complication E11.9 [facility] [id number] [place] [address] 72173- 8815 Jul, [facility] [id number] [place] [address] 63380- 2951 Jul, [facility] [address] 16931- 7478 Jul, [place] [id number] [place] [address] 74050- 7656 Jun, Type 2 diabetes mellitus without complication E11.9 [facility] [address] 63971- 6903 Jun, Chronic migraine G43.709 ; Type 2 diabetes mellitus without complication E11.9 ; Calculus of right kidney N20.0 ; Yeast dermatitis B37.2 and HSV (herpes simplex virus) infection B00.9 [place] [id number] [place] [address] 34511- 9853 Jun, Type 2 diabetes mellitus without complication E11.9 [place] [address] 56338- 8911 Jun, [place] [address] 82241- 6846 Jun, Radiculopathy of lumbar region M54.16 and Chronic pain G89.29 [place] [id number] [place] [address] 57547- 2172 Jun, Encounter for Depo-Provera contraception Z30.42 [place] [id number] [place] [address] 58296- 8675 Jun, Type 2 diabetes mellitus without complication E11.9 [place] [id number] [place] [address] 58737- 5864 Jun, [facility] [id number] [place] [address] 34669 -7710 May, Acute nasopharyngitis (common cold) J00 [facility] [address] 16401- 7487 May, Chronic pain G89.29 [place] [id number] [place] [address] 57306- 3171 May, Headache following lumbar puncture G97.1 [place] [id number] [place] [address] 23943- 1989 08 May, 2017 Radiculopathy of lumbar region M54.16 [place] [address] 84495- 5529 Apr, [place] [address] 90019- 0318 Apr, Type 2 diabetes mellitus without complication E11.9 ; Chronic pain G89.29 ; Essential hypertension I10 ; Radiculopathy of lumbar region M54.16 ; Spinal stenosis, lumbar region M48.06 ; Gastroesophageal reflux disease without esophagitis K21.9 ; HSV (herpes simplex virus) infection B00.9 ; Mixed hyperlipidemia E78.2 ; Anxiety F41.9 and Asthma J45.909 [place] [address] 82602- 9838 Apr, Encounter for Depo-Provera contraception Z30.42 [place] [id number] [place] [address] 31083- 0879 Apr, Chronic pain G89.29 and Anxiety F41.9 [place] [id number] [place] [address] 76123- 3173 Mar, [place] [address] 98367- 9870 Mar, [place] [address] 56201- 4302 Mar, Mixed hyperlipidemia E78.2 [place] [id number] [place] [address] 53213- 2685 Mar, Type 2 diabetes mellitus without complication E11.9 ; Chronic pain G89.29 ; Essential hypertension I10 ; Radiculopathy of lumbar region M54.16 ; Spinal stenosis, lumbar region M48.06 ; Gastroesophageal reflux disease without esophagitis K21.9 ; HSV (herpes simplex virus) infection B00.9 ; Mixed hyperlipidemia E78.2 and Anxiety F41.9 [facility] [id number] [place] [address] 61572- 4283 Mar, [facility] [id number] [place] [address] 81944- 2401 Mar, [facility] [id number] [place] [address] 98546- 4962 Mar, [facility] [id number] [place] [address] 10747- 6245 February, Chronic pain G89.29 [place] [id number] [place] [address] 45708- 0082 February, [facility] [id number] [place] [address] 84281- 6783 Jan, Chronic pain G89.29 [facility] [id number] [place] [address] 16668- 4776 Jan, Type 2 diabetes mellitus without complication E11.9 [place] [id number] [place] [address] 03363- 5306 Jan, [facility] [id number] [place] [address] 74883- 3439 Jan, [place] [id number] [place] [address] 39976- 2472 Jan, [facility] [id number] [place] [address] 77543- 8740 Jan, Type 2 diabetes mellitus without complication [...] J01.00 and Encounter for Depo-Provera contraception Z30.42 [place] [id number] [place] [address] 96648- 5470 Dec, Chronic pain G89.29 [place] [id number] [place] [address] 06312- 3827 Dec, Abnormal ankle brachial index (BERNARDINO) R68.89 [place] [address] 20042- 9170 Dec, [place] [address] 446163- 5555 15 Dec, 2016 Routine gynecological examination Z01.419 [...] virus) infection B00.9 and Allergic rhinitis 477.9 [place] [id number] [place] [address] 36081- 8192 28 Nov, 2016 Chronic pain G89.29 [place] [id number] [place] [address] 44876- 9464 02 Nov, 2016 Chronic pain G89.29 ; [...] mucoid otitis media of both ears H65.113 [place] [id number] [place] [address] 47375- 8113 Oct, [facility] [id number] [place] [address] 99187- 7301 Oct, Chronic pain G89.29 [facility] [id number] [place] [address] 45387- 7010 Oct, Chronic pain G89.29 [facility] [id number] [place] [address] 27783- 0706 Sep, Chronic pain G89.29 ; Type 2 diabetes mellitus without complication E11.9 ; Essential hypertension I10 ; Radiculopathy of lumbar region M54.16 ; Spinal stenosis, lumbar region M48.06 ; Gastroesophageal reflux disease without esophagitis K21.9 ; Encounter for surveillance of injectable contraceptive Z30.42 ; Bilateral cold feet R20.9 ; Pain of left foot M79.672 and Pain in right foot M79.671 [place] [id number] [place] [address] 45597- 0443 Sep, [facility] [id number] [place] [address] 44856- 3652 Aug, [place] [id number] [place] [address] 98453- 8198 Aug, [facility] [id number] [place] [address] 88724- 8628 Aug, Chronic pain G89.29 ; Type 2 diabetes mellitus without complication E11.9 ; Essential hypertension I10 ; Rash and nonspecific skin eruption R21 and Upper respiratory infection, acute J06.9 [place] [id number] [place] [address] 71342- 2947 Aug, [place] [address] 51405- 5233 Aug, [facility] [id number] [place] [address] 72891- 2658 Jul, [place] [id number] [place] [address] 66045- 6947 Jul, Dysuria R30.0 ; Encounter for Depo-Provera contraception Z30.42 ; Herpes simplex B00.9 ; Nausea & vomiting R11.2 and Asthma J45.909 [facility] [id number] [place] [address] 65934- 7320 Jun, Dysuria R30.0 [facility] [id number] [place] [address] 15609- 4651 19 Jun, 2016 Dysuria R30.0 [facility] [address] 12853- 2813 15 Jun, 2016 [place] [address] 35460- 7685 13 Jun, 2016 [facility] [address] 87386- 2970 May, [facility] [address] 30705- 5931 May, [facility] [id number] [place] [address] 92411- 5443 May, Chronic pain G89.29 ; Essential hypertension I10 ; Type 2 diabetes mellitus without complication E11.9 ; Edema of both feet R60.0 and Rash and nonspecific skin eruption R21 [place] [id number] [place] [address] 04051- 7068 Apr, [facility] [id number] [place] [address] 70865- 5401 Mar, Carpal tunnel syndrome, left upper limb G56.02 and Carpal tunnel syndrome, right upper limb G56.01 [place] [address] 39176- 7824 Mar, [facility] [address] 24874- 4383 Mar, Encounter for Depo-Provera contraception Z30.42 [facility] [address] 33996- 9858 February, [place] [id number] [place] [address] 51043- 7812 February, [place] [address] [id number] [place] [address] 48551- 6289 February, Chronic pain G89.29 ; Essential hypertension I10 ; Type 2 diabetes mellitus without complication E11.9 ; HSV (herpes simplex virus) infection B00.9 ; Anxiety F41.9 ; Hypersomnia G47.10 ; Tobacco abuse Z72.0 ; Hand pain, left M79.642 ; Hand pain, right M79.641 ; Left foot pain M79.672 and Heart palpitations R00.2 [place] [id number] [place] [address] 30209- 7304 Jan, [place] [address] [id number] [place] [address] 58416- 2037 Jan, [place] [address] [id number] [place] [address] 36538- 1844 Jan, [place] [address] [id number] [place] [address] 05609- 9868 Jan, [place] [address] [address] [id number] [place] [address] 76358- 9320 Jan, Upper respiratory infection J06.9 and Type 2 diabetes mellitus without complication E11.9 [place] [address] [id number] [place] [address] 90142- 3157 Dec, [place] [id number] [place] [address] 38933- 4013 Dec, Chronic pain G89.29 ; Essential hypertension I10 ; Type 2 diabetes mellitus without complication E11.9 ; HSV (herpes simplex virus) infection B00.9 ; Anxiety F41.9 ; Upper respiratory infection J06.9 ; Hypersomnia G47.10 and Tobacco abuse Z72.0 [place] [id number] [place] [address] 01957- 6223 Dec, Encounter for Depo-Provera contraception Z30.42 [place] [address] [id number] [place] [address] 93385- 3434 Dec, [place] [address] 97914- 1434 Dec, Chronic pain G89.29 ; Sinusitis J32.9 ; Snoring R06.83 and Daytime hypersomnia G47.19 [place] [address] 13586- 5116 Nov, HSV (herpes simplex virus) infection B00.9 ; Encounter for Papanicolaou smear for cervical cancer screening Z12.4 ; Screening for STD sexually transmitted disease Z11.3 and Bartholin's gland cyst N75.0 [place] [address] 66237- 5352 Nov, [place] [address] 59691- 7036 Nov, [place] [address] 29308- 3708 Nov, Essential hypertension I10 ; Type 2 diabetes mellitus without complication E11.9 ; HSV (herpes simplex virus) infection B00.9 ; Spinal stenosis, lumbar region M48.06 and Vaginal yeast infection B37.3 [place] [id number] [place] [address] 21176- 3787 Nov, [place] [address] [address] [id number] [place] [address] 97283- 8131 Nov, [place] [address] 76085- 3265 Oct, [place] [address] 89938- 7190 Oct, HSV (herpes simplex virus) infection B00.9 ; Yeast infection B37.9 ; Change in bowel habit R19.4 ; Nausea & vomiting R11.2 and Gastroesophageal reflux disease without esophagitis K21.9 [place] [address] [id number] [place] [address] 48001- 4079 Oct, [place] [address] 62881- 5026 Oct, Type 2 diabetes mellitus without complication E11.9 ; Essential hypertension I10 and Acute maxillary sinusitis, recurrence not specified J01.[address] 57983- 7818 Oct, [place] [address] 95268- 6874 Oct, [address] 81786- 0196 Oct, Exposure to head lice Z20.7 ; Blood glucose abnormal R73.09 ; Boil of buttock L02.32 and Type 2 diabetes mellitus without complication E11.9 [place] [address] 81643- 7067 Oct, [address] 30526- 7865 Sep, [address] 66408- 6502 Sep, [address] 14941- 3938 Aug, Encounter for Depo-Provera contraception Z30.[address] 78359- 5748 Aug, Anxiety F41.9 ; Spinal stenosis, lumbar region M48.06 ; Radiculopathy of lumbar region M54.16 ; Asthma J45.909 ; GERD (gastroesophageal reflux disease) K21.9 ; Essential hypertension I10 and Long-term use of high- risk medication Z79.[address] 82176- 0923 Jul, [place] [address] [address] [id number] [place] [address] 57696- 4794 Jun, Hemorrhoid 455.[address] 47323- 7834 Jun, [address] 51846- 4982 Jun, Anxiety 300.00 ; Asthma 493.90 ; Hyperhidrosis 705.21 ; Chest discomfort 786.59 and Upper respiratory infection 465.[address] 37109- 8170 May, Encounter for Depo-Provera contraception V25.[address] 48760- 6190 May, [address] 74619- 9713 May, [address] 22522- 8158 May, Spinal stenosis of lumbar region with radiculopathy 724.02 ; Bulging of intervertebral disc between L4 and L5 722.10 ; GERD ( gastroesophageal reflux disease) 530.81 ; Chronic pain 338.29 ; Declining mobility 799.89 and Epigastric pain 789.[address] 76601- 8998 Apr, [address] 81761- 9876 Apr, Nausea 787.02 and Heart burn 787.[address] 76473- 0800 Mar, Lumbago 724.2 ; Vitamin D deficiency 268.9 ; Anxiety 300.00 ; Allergic rhinitis 477.9 and Contraceptive surveillance V25.[address] 44666- 0916 February, 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 ; Chronic pain 338.29 and Vaginal discharge 623.5 [facility] [address] [address]- 1539 February, [facility] [address] [facility] [id number] [address]- 3198 February, [facility] [id number] [place] [address] 69811- 7479 Jan, [facility] [address] [facility] [id number] [place] [address] 37682- 7784 Jan, [facility] [address] [id number] [place] [address], [place] [address]- 3273 Dec, [facility] [id number] [place] [address] 46744- 8192 Dec, [facility] [id number] [place] [address] 04639- 9818 Dec, [facility] [address], [place] [address]- 1230 Dec, [facility] [address], [place] [address]- 9431 Dec, [facility] [address] [address]- 5715 Dec, [facility] [id number] [address]- 4991 Dec, [facility] [address] [facility] [id number] [address]- 7985 Dec, [facility] [address] [address]- 6458 Dec, [facility] [address] [facility] [id number] 2971 Dec, [facility] [address] [address]- 0453 Dec, 2014 [facility] [place] [facility] [address] [facility] [id number] [place] [address]- 4165 Dec, [facility] [place] [facility] [address] [facility] [id number] [place] [address]- 9692 Nov, 2014 [facility] [place] [facility] [address] [facility] [id number] [place] [address]- 4906 Nov, 2014 [facility] [place] [facility] [address] [facility] [id number] [place] [address]- 6884 24 Nov, 2014 [facility] [place] [facility] [address] [facility] [id number] [place] [address]- 6085 24 Nov, 2014 [facility] [place] [facility] [address] [facility] [id number] [place] [address] 23 Nov, 2014 [facility] [place] [facility] [address] [facility] [id number] [place] [address] 23 Nov, 2014 [facility] [place] [facility] [address] [facility] [id number] [place] [address] 16 Nov, 2014 [facility] [place] [facility] [address] [facility] [id number] [place] [address] 16 Nov, 2014 [facility] [place] [facility] [address] [facility] [id number] [place] [address] 13 Nov, 2014 [facility] [place] [facility] [address] [facility] [id number] [place] [address] 13 Nov, 2014 [facility] [place] [facility] [address] [facility] [id number] [place] [address] 13 Nov, 2014 [facility] [place] [facility] [address] [facility] [id number] [place] [address] 13 Nov, 2014 [facility] [place] [facility] [address] [facility] [id number] [place] [address] 13 Nov, 2014 [facility] [place] [facility] [address] [facility] [id number] [place] [address] Nov, 2014 [facility] [place] [facility] [address] [id number] [place] [address] Nov, 2014 [facility] [place] [facility] [address] [id number] [place] [address] Nov, 2014 [facility] [place] [facility] [address] [facility] [id number] [place] [address] Nov, 2014 [facility] [place] [facility] [address] [id number] [place] [address] Nov, 2014 [facility] [place] [facility] [address] [id number] [place] [address] Nov, 2014 [facility] [place] [facility] [address] [id number] [place] [address] Nov, 2014 [facility] [place] [facility] [address] [id number] [place] [address] Nov, 2014 [facility] [place] [facility] [address] [id number] [place] [address] Nov, 2014 [facility] [place] [facility] [address] [id number] [place] [address] Nov, [facility] [place] [facility] [address] [facility] [id number] [place] [address] Oct, [facility] [place] [facility] [address] [id number] [place] [address] Oct, [facility] [place] [facility] [address] [id number] [place] [address] 8368 Oct, [facility] [place] [facility] [address] [id number] [place] [address] 2432 Oct, [facility] [place] [facility] [address] [id number] [place] [address] 2871 Oct, [facility] [place] [facility] [address] [facility] [id number] [place] [address] 5669 Oct, [facility] [place] [facility] [address] [id number] [place] [address] 2490 Oct, [facility] [address] [id number] [place] [address] 0983 Oct, [facility] [place] [facility] [address] [id number] [place] [address] 3951 Oct, [facility] [place] [facility] [address] [id number] [place] [address] 8422 Oct, [facility] [place] [facility] [address] [id number] [place] [address] 8568 Oct, [facility] [place] [facility] [address] [id number] [place] [address] 5073 Oct, [facility] [place] [facility] [address] [id number] [place] [address] 9060 Oct, [facility] [place] [facility] [address] [id number] [place] [address] 6221 Oct, [facility] [place] [facility] [address] [id number] [place] [address] 0809 Oct, [facility] [place] [facility] [address] [id number] [place] [address] 9831 Oct, [facility] [place] [facility] [address] [id number] [place] [address] 9810 Oct, [facility] [place] [facility] [address] [id number] [place] [address] 6496 Oct, [facility] [place] [facility] [address] [id number] [place] [address]- 6751 Oct, [facility] [place] [facility] [address] [id number] [place] [address] 7144 Oct, [facility] [place] [facility] [address] [id number] [place] [address]- 0536 Oct, [facility] [place] [facility] [address] [id number] [place] [address]- 3455 Sep, [facility] [place] [facility] [address] [id number] [place] [address]- 5628 29 Sep, 2014 [facility] [place] [facility] [address] [id number] [place] [address]- 0038 18 Sep, 2014 [facility] [place] [facility] [address] [id number] [place] [address]- 4010 18 Sep, 2014 [facility] [place] [facility] [address] [id number] [place] [address]- 2481 17 Sep, 2014 [facility] [place] [facility] [address] [id number] [place] [address]- 3369 17 Sep, 2014 [facility] [place] [facility] [address] [id number] [place] [address]- 5456 15 Sep, 2014 [facility] [place] [facility] [address] [id number] [place] [address]- 0602 15 Sep, 2014 [facility] [place] [facility] [address] [id number] [place] [address]- 6482 12 Sep, 2014 [facility] [place] [facility] [address] [id number] [place] [address]- 3797 12 Sep, 2014 [facility] [place] [facility] [address] [id number] [place] [address]- 9724 Sep, [facility] [place] [facility] [address] [id number] [place] [address]- 5565 Sep, [facility] [place] [facility] [address] [id number] [place] [address]- 8971 Sep, [facility] [place] [facility] [address] [id number] [place] [address]- 7536 Sep, [facility] [place] [facility] [address] [id number] [place] [address]- 4862 Sep, [facility] [place] [facility] [address] [id number] [place] [address]- 7573 11 Sep, 2014 [facility] [place] [facility] [address] [id number] [place] [address]- 3786 Sep, [facility] [place] [facility] [address] [id number] [place] [address]- 4458 Sep, [facility] [place] [facility] [address] [id number] [place] [address]- 0050 Sep, [facility] [place] [facility] [address] [id number] [place] [address]- 9500 Sep, [facility] [place] [facility] [address] [id number] [place] [address]- 9652 Aug, [facility] [place] [facility] [address] [id number] [place] [address]- 7046 Aug, [facility] [place] [facility] [address] [id number] [place] [address]- 1435 Aug, [facility] [place] [facility] [address] [id number] [place] [address]- 7653 Aug, [facility] [place] [facility] [address] [id number] [place] [address]- 3918 Aug, [facility] [place] [facility] [address] [id number] [place] [address]- 9661 Aug, [facility] [place] [facility] [address] [facility] [id number] [place] [address]- 4900 Aug, [facility] [place] [facility] [address] [id number] [place] [address]- 1792 Aug, [facility] [place] [facility] [address] [id number] [place] [address]- 5584 Aug, [facility] [place] [facility] [address] [id number] [place] [address]- 8435 Jul, [facility] [place] [facility] [address] [id number] [place] [address]- 9598 Jul, [facility] [place] [facility] [address] [id number] [place] [address]- 8414 Jul, [facility] [place] [facility] [address] [id number] [place] [address]- 0776 23 Jul, 2013 [facility] [place] [facility] [address] [id number] [place] [address]- 2029 Jul, 2013 [facility] [place] [facility] [address] [id number] [place] [address]- 0247 16 Jul, 2013 [facility] [place] [facility] [address] [id number] [place] [address]- 9234 Jul, [facility] [place] [facility] [address] [id number] [place] [address]- 0554 Jul, 2013 [facility] [place] [facility] [address] [id number] [place] [address]- 2217 Jul, [facility] [place] [facility] [address] [id number] [place] [address]- 5596 Jul, [facility] [place] [facility] [address] [id number] [place] [address]- 6261 Jul, [facility] [place] [facility] [address] [id number] [place] [address]- 3736 Jul, [facility] [place] [facility] [address] [id number] [place] [address]- 9834 07 Jul, 2014 [facility] [place] [facility] [address] [id number] [place] [address]- 5762 Jul, [facility] [place] [facility] [address] [id number] [place] [address]- 4668 30 Jun, 2013 [facility] [place] [facility] [address] [id number] [place] [address]- 3957 30 Jun, 2013 [facility] [place] [facility] [address] [id number] [place] [address]- 6189 25 Jun, 2013 [facility] [place] [facility] [address] [id number] [place] [address]- 2759 25 Jun, 2013 [facility] [place] [facility] [address] [id number] [place] [address]- 5976 25 Sep, 2013 [facility] [place] [facility] [address] [id number] [place] [address] 2546 25 Sep, 2013 [facility] [place] [facility] [address] [id number] [place] [address]- 4886 24 Sep, 2013 [facility] [place] [facility] [address] [id number] [place] [address] 2546 24 Sep, 2013 [facility] [place] [facility] [address] [id number] [place] [address]- 8721 22 Sep, 2013 [facility] [place] [facility] [address] [id number] [place] [address]- 0517 22 Sep, 2013 [facility] [place] [facility] [address] [id number] [place] [address]- 2068 17 Sep, 2013 [facility] [place] [facility] [address] [id number] [place] [address]- 7555 17 Sep, 2013 [facility] [place] [facility] [address] [id number] [place] [address]- 9079 16 Sep, 2013 [facility] [place] [facility] [address] [id number] [place] [address]- 5526 16 Sep, 2013 [facility] [place] [facility] [address] [id number] [place] [address]- 1579 15 Sep, 2013 [facility] [place] [facility] [address] [id number] [place] [address]- 3046 15 Jun, 2013 [facility] [place] [facility] [address] [id number] [address] 2549 12 Sep, 2013 [facility] [place] [facility] [address] [id number] [place] [address] 2546 12 Sep, 2013 [facility] [place] [facility] [address] [id number] [place] [address]- 254 11 Sep, 2013 [facility] [place] [facility] [address] [id number] [place] [address]- 2546 11 Sep, 2013 [facility] [place] [facility] [address] [id number] [place] [address]- 4776 11 Jun, 2013 [facility] [place] [facility] [address] [id number] [place] [address]- 4870 Jun, 2013 [facility] [place] [facility] [address] [id number] [place] [address]- 9854 Jun, [facility] [place] [facility] [address] [id number] [place] [address]- 0487 Jun, [facility] [place] [facility] [address] [id number] [place] [address]- 1738 Jun, [facility] [place] [facility] [address] [id number] [place] [address]- 3113 Jun, [facility] [place] [facility] [address] [id number] [place] [address]- 2904 May, [facility] [place] [facility] [address] [id number] [place] [address]- 1646 May, [facility] [place] [facility] [address] [id number] [place] [address]- 8171 May, [facility] [place] [facility] [address] [id number] [place] [address]- 6191 May, [facility] [place] [facility] [address] [id number] [place] [address]- 5593 May, [facility] [place] [facility] [address] [id number] [place] [address]- 8367 May, [facility] [place] [facility] [address] [id number] [place] [address]- 3149 May, [facility] [place] [facility] [address] [id number] [place] [address]- 5460 May, [facility] [place] [facility] [address] [id number] [place] [address]- 5675 May, [facility] [place] [facility] [address] [id number] [place] [address]- 0426 May, [facility] [place] [facility] [address] [id number] [place] [address]- 2434 May, [facility] [place] [facility] [address] [id number] [place] [address]- 9958 May, [facility] [place] [facility] [address] [id number] [place] [address]- 2692 May, [facility] [place] [facility] [address] [id number] [place] [address]- 4986 Apr, [facility] [place] [facility] [address] [id number] [place] [address]- 3497 Apr, [facility] [place] [facility] [address] [id number] [place] [address]- 5218 Apr, [facility] [place] [facility] [address] [id number] [place] [address]- 7158 Apr, [facility] [place] [facility] [address] [id number] [place] [address]- 3630 Apr, [facility] [place] [facility] [address] [id number] [place] [address]- 1594 Mar, [facility] [place] [facility] [address] [id number] [place] [address]- 7614 Mar, [facility] [place] [facility] [address] [id number] [place] [address]- 2672 Mar, [facility] [place] [facility] [address] [id number] [place] [address]- 6240 February, [facility] [place] [facility] [address] [id number] [place] [address]- 2309 February, [facility] [place] [facility] [address] [id number] [place] [address]- 8688 February, [facility] [place] [facility] [address] [id number] [place] [address]- 8584 February, [facility] [place] [facility] [address] [id number] [place] [address]- 9999 February, [facility] [place] [facility] [address] [id number] [place] [address]- 6248 February, [facility] [place] [facility] [address] [id number] [place] February, [facility] [place] [facility] [address] [id number] [place] [address]- 9119 February, [facility] [place] [facility] [address] [id number] [place] [address]- 3388 February, [facility] [place] [facility] [address] [id number] [place] [address]- 8588 Jan, [facility] [place] [facility] [address] [id number] [place] [address]- 2637 Jan, [facility] [place] [facility] [address] [id number] [place] [address]- 0153 Jan, [facility] [place] [facility] [address] [id number] [place] [address]- 5572 Jan, [facility] [place] [facility] [address] [id number] [place] [address]- 4935 Jan, [facility] [place] [facility] [address] [facility] [id number] [place] [address]- 9662 Dec, [facility] [place] [facility] [address] [id number] [place] [address]- 6045 Dec, [facility] [place] [facility] [address] [id number] [place] [address]- 1884 Dec, [facility] [place] [facility] [address] [id number] [place] [address]- 4985 Dec, [facility] [place] [facility] [address] [id number] [place] [address]- 6611 Dec, [facility] [place] [facility] [address] [id number] [place] [address]- 7609 Nov, [facility] [place] [facility] [address] [id number] [place] [address]- 3677 Nov, [facility] [place] [facility] [address] [id number] [place] [address]- 7236 Nov, [facility] [place] [facility] [address] [id number] [place] [address]- 2229 Nov, [facility] [place] [facility] [address] [id number] [place] [address]- 1533 Oct, [facility] [place] [facility] [address] [id number] [place] [address]- 7578 Oct, [facility] [place] [facility] [address] [id number] [place] [address]- 5867 Oct, [facility] [place] [facility] [address] [id number] [place] [address]- 6894 Oct, [facility] [place] [facility] [address] [id number] [place] [address]- 3070 Oct, [facility] [place] [facility] [address] [id number] [place] [address]- 8524 Oct, [facility] [place] [facility] [address] [id number] [place] [address]- 9748 Oct, [facility] [place] [facility] [address] [id number] [place] [address]- 5529 Oct, [facility] [place] [facility] [address] [id number] [place] [address]- 1947 Oct, [facility] [place] [facility] [address] [id number] [place] [address]- 5760 Oct, [facility] [place] [facility] [address] [id number] [place] [address]- 4317 Aug, [facility] [place] [facility] [address] [id number] [place] [address]- 7746 Aug, [facility] [place] [facility] [address] [id number] [place] [address]- 1121 Jul, [facility] [place] [facility] [address] [id number] [place] [address]- 9402 Jul, [facility] [place] [facility] [address] [id number] [place] [address]- 4098 Jul, [facility] [place] [facility] [address] [id number] [place] [address]- 3961 Jul, [facility] [place] [facility] [address] [id number] [place] [address]- 2048 Jul, [facility] [place] [facility] [address] [id number] [place] [address]- 7837 Jul, [facility] [place] [facility] [address] [id number] [place] [address]- 5079 Apr, [facility] [place] [facility] [address] [id number] [place] [address]- 5422 Dec, [facility] [place] [facility] [address] [id number] [place] [address]- 2381 Nov, [facility] [place] [facility] [address] [id number] [place] [address]- 9068 Nov, [facility] [place] [facility] [address] [id number] [place] [address]- 7618 Nov, [facility] [place] [facility] [address] [id number] [address]- 8149 Oct, [facility] [place] [facility] [address] [id number], [place] [address]- 3546 Sep, [facility] [place] [facility] [address] [id number] [place] [address]- 5264 Sep, [facility] [place] [facility] [address] [id number] [place] [address]- 4298 Sep, [facility] [place] [facility] [address] [id number] [place] [address]- 3556 Sep, [facility] [place] [facility] [address] [id number] [place] [address]- 7409 13 Aug, 2012 [facility] [place] [facility] [address] [id number] [place] [address]- 3810 13 Aug, 2012 [facility] [place] [facility] [address] [id number] [place] [address]- 2376 Jul, [facility] [place] [facility] [address] [id number] [place] [address]- 0819 Jul, [facility] [place] [facility] [address] [id number] [place] [address]- 5639 28 Jun, 2012 [facility] [place] [facility] [address] [id number] [place] [address]175 26 Jun, 2012 [facility] [place] [facility] [address] [id number] [place] [address]- 1556 24 Jun, 2012 [facility] [place] [facility] [address] [id number] [place] [address]- 7198 24 Jun, 2012 [facility] [place] [facility] [address] [id number] [place] [address]- 3455 12 Jun, 2012 [facility] [place] [facility] [address] [id number] [place] [address]- 4094 Apr, [facility] [place] [facility] [address] [id number] [place] [address]- 4003 30 Apr, 2012 [facility] [place] [facility] [address] [id number] [place] [address]- 8056 Apr, [facility] [place] [facility] [address] [id number] [place] [address]- 7783 Mar, [facility] [place] [facility] [address] [id number] [place] [address]- 5392 Mar, [facility] [place] [facility] [address] [id number] [place] [address]- 0166 Mar, [facility] [place] [facility] [address] [id number] [place] [address]- 4319 February, [facility] [address] [id number] [place] [address]- 6100 18 Jan, 2012 [facility] [place] [facility] [address] [id number] [place] [address]- 4854 Dec, [facility] [place] [facility] [address] [id number] [place] [address]- 0191 Dec, [facility] [place] [facility] [address] [id number] [place] [address]- 5965 Dec, [facility] [place] [facility] [address] [id number] [place] [address]- 4564 Dec, [facility] [place] [facility] [address] [id number] [place] [address]- 1018 Dec, [facility] [place] [facility] [address] [id number] [place] [address]- 2381 14 Nov, 2011 [facility] [place] [facility] [address] [id number] [place] [address]- 1487 13 Nov, 2011 [facility] [place] [facility] [address] [id number] [place] [address]- 8409 Oct, [facility] [place] [facility] [address] [id number] [place] [address] Oct, [facility] [place] [facility] [address] [id number] [place] [address] Oct, [facility] [place] [facility] [address] [id number] [address] Sep, [facility] [place] [facility] [address] [id number] [place] [address] Aug, [facility] [place] [facility] [address] [id number] [place] [address] 10 Aug, 2011 [facility] [place] [facility] [address] [id number] [place] [address] 28 Jul, 2011 [facility] [place] [facility] [address] [id number] [place] [address] 24 Jul, 2011 [facility] [address] [id number] [place] [address] 19 Jul, 2011 [facility] [place] [facility] [address] [id number] [place] [address] 13 Jan, 2011 [facility] [place] [facility] [address] [id number] [place] [address] 29 Sep, 2010 [facility] [place] [facility] [address] [id number] [place] [address] 27 Sep, 2010 [facility] [place] [facility] [address] [id number] [place] [address] Sep, [facility] [place] [facility] [address] [id number] [place] [address] Sep, [facility] [address] [id number] [place] [address] 06 Sep, 2010 [facility] [place] [facility] [address] [id number] [place] [address] 16 Aug, 2010 [facility] [place] [facility] [address] [id number] [place] [address] 16 Aug, 2010 [facility] [place] [facility] [address] [id number] [place] [address] 08 Aug, 2010 [facility] [place] [facility] [address] [id number] [place] [address] Jul, [facility] [place] [facility] [address] [id number] [place] [address] Jul, [facility] [place] [facility] [address] [id number] [place] [address] Jul, [facility] [place] [facility] [address] [id number] [place] [address] May, [facility] [place] [facility] [address] [id number] [place] [address] 13 Apr, 2010 [facility] [address] [id number] [address] Dec, [facility] [address] [id number] [address] [address] Sep, [facility] [id number] [address] Sep, [facility] [id number] [address] Aug, [facility] [id number] [address] Aug, [facility] [id number] [address] Jul, [facility] [address] [id number] [address] Mar, IMMUNIZATIONS No Known Immunizations SOCIAL HISTORY Never Assessed REASON FOR VISIT deferred lab PLAN OF CARE VITAL SIGNS MEDICATIONS Unknown [...] 2016 Hospitalization History Surgery(s) only Hospitalization History [facility]-sepsis/ARF 06/2017
--- OUTSIDE RECORDS SUMMARY | 2018-10-08 19:51 | XMS REPORT ---
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 Active 081160235 Problem Edema of both feet R60.0 Active 339790812 Problem Tobacco abuse Z72.0 Active 09305184 Problem Chronic migraine G43.709 Active 84539182 Problem Mixed hyperlipidemia E78.2 Active 169023980 Problem Spinal stenosis, lumbar region M48.06 Active 32948166 Problem Anxiety F41.9 Active 41778023 Problem Radiculopathy of lumbar region M54.16 Active 015795316 Problem Bulging lumbar disc M51.26 Active 906802494 Problem Asthma J45.909 Active 711282740 Problem Essential hypertension I10 Active 68917388 ALLERGIES No Information ENCOUNTERS Encounter Location Date Diagnosis [facility] [id number] [place] [address] 22849- 8165 Apr, Chronic pain G89.29 and Anxiety F41.9 [facility] [address] [place] [id number] [place] [address] 66726- 6322 Mar, HSV (herpes simplex virus) infection B00.9 ; Anxiety F41.9 and Chronic pain G89.29 [facility] [id number] [address] Mar, [place] [id number] [place] [address] 11060- 2687 Mar, Chronic pain G89.29 [place] [address] [place] [address] [address]955 February, Chronic pain G89.29 [place] [address] 14144- 9905 Jan, Chronic pain G89.29 [place] [address] 77317- 0113 Jan, 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 [place] [address] 110608- 7915 Jan, Encounter for Depo-Provera contraception Z30.42 [place] [address] 57217- 9814 Jan, [place] [address] 69112- 0377 Jan, Chronic pain G89.29 and Anxiety F41.9 [place] [address] 42674- 2221 Jan, [place] [address] [place] [id number] [place] [address] 86643- 1765 Dec, [place] [address] [place] [id number] [place] [address] 18002- 9934 Dec, Gastroesophageal reflux disease without esophagitis K21.9 and Anxiety F41.9 [place] [address] 74441- 2450 Dec, Essential hypertension I10 ; Mixed hyperlipidemia E78.2 ; Type 2 diabetes mellitus with diabetic neuropathy, unspecified E11.40 ; 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 ; Chronic pain G89.29 ; HSV (herpes simplex virus) infection B00.9 ; Anxiety F41.9 and Gastroesophageal reflux disease without esophagitis K21.9 [place] [address] [place] [address]- 1617 Dec, Chronic pain G89.29 and Chronic migraine G43.709 [place] [address] 52541- 1607 Nov, [place] [address] 85139- 6901 Nov, Essential hypertension I10 and Chronic pain G89.29 [place] [address] 99937- 3337 Nov, Chronic pain G89.29 ; Essential hypertension I10 and Type 2 diabetes mellitus without complication E11.[address] 89822- 7983 Oct, Chronic pain G89.[address] 51690- 2658 Oct, [place] [address] 09593- 0913 Sep, Type 2 diabetes mellitus without complication E11.9 ; Essential hypertension I10 ; FCI (current) use of insulin Z79.4 ; Chronic migraine G43.709 ; Chronic pain G89.29 and Acute non-recurrent maxillary sinusitis J01.00 [place] [id number] [place] [address] 98515- 6548 Sep, Encounter for Depo-Provera contraception Z30.42 [place] [address] 96233- 8104 Sep, Chronic pain G89.29 and Radiculopathy of lumbar region M54.[address] 76441- 9668 Sep, [address] 27041- 7651 Sep, [address] 99825- 0248 Aug, Type 2 diabetes mellitus without complication E11.9 [facility] [address], [place] [address] Aug, [facility] [id number] [place] [address] 54569- 7488 Aug, Radiculopathy of lumbar region M54.16 and Chronic pain G89.29 [facility] [id number] [place] [address] 00052- 4409 Aug, Type 2 diabetes mellitus without complication E11.9 [facility] [id number] [place] [address] 52165- 7032 Aug, Type 2 diabetes mellitus without complication E11.9 [facility] [id number] [place] [address] 74827- 4683 Jul, Type 2 diabetes mellitus without complication E11.9 [facility] [id number] [place] [address] 05653- 9704 Jul, [facility] [id number] [place] [address] 97409- 9119 Jul, Chronic pain G89.29 [facility] [id number] [place] [address] 53599- 1885 Jul, [facility] [address], [place] [address]- 0355 Jul, [facility] [id number] [place] [address] 50697- 9629 Jul, Type 2 diabetes mellitus without complication E11.9 [facility] [id number] [place] [address] 48293- 9976 Jul, [facility] [id number] [place] [address] 54779- 0262 Jul, Type 2 diabetes mellitus without complication E11.9 [facility] [id number] [place] [address] 90185- 9013 Jul, [facility] [id number] [place] [address] 86251- 9105 Jul, [facility] [address] 39426- 5031 Jul, [place] [address] [place] [id number] [place] [address] 77631- 9548 Jun, Type 2 diabetes mellitus without complication E11.9 [facility] [address] 90718- 2290 Jun, Chronic migraine G43.709 ; Type 2 diabetes mellitus without complication E11.9 ; Calculus of right kidney N20.0 ; Yeast dermatitis B37.2 and HSV (herpes simplex virus) infection B00.9 [place] [address] [place] [id number] [place] [address] 69519- 0055 Jun, Type 2 diabetes mellitus without complication E11.9 [place] [address] 49182- 4812 Jun, [place] [address] 70093- 7067 Jun, Radiculopathy of lumbar region M54.16 and Chronic pain G89.29 [place] [address] [place] [id number] [place] [address] 06339- 5837 Jun, Encounter for Depo-Provera contraception Z30.42 [place] [address] [place] [id number] [place] [address] 65570- 7599 Jun, Type 2 diabetes mellitus without complication E11.9 [place] [address] [place] [id number] [place] [address] 77464- 8106 Jun, [facility] [id number] [place] [address] 84809 -8477 May, Acute nasopharyngitis (common cold) J00 [facility] [address] 97669- 0523 May, Chronic pain G89.29 [place] [address] [place] [id number] [place] [address] 44027- 3238 May, Headache following lumbar puncture G97.1 [place] [address] [place] [id number] [place] [address] 32164- 4739 08 May, 2017 Radiculopathy of lumbar region M54.16 [place] [address] 64277- 2283 Apr, [place] [address] 46061- 3470 Apr, Type 2 diabetes mellitus without complication E11.9 ; Chronic pain G89.29 ; Essential hypertension I10 ; Radiculopathy of lumbar region M54.16 ; Spinal stenosis, lumbar region M48.06 ; Gastroesophageal reflux disease without esophagitis K21.9 ; HSV (herpes simplex virus) infection B00.9 ; Mixed hyperlipidemia E78.2 ; Anxiety F41.9 and Asthma J45.909 [place] [address] 29569- 5149 Apr, Encounter for Depo-Provera contraception Z30.42 [place] [address] [place] [id number] [place] [address] 12091- 9810 Apr, Chronic pain G89.29 and Anxiety F41.9 [place] [address] [place] [id number] [place] [address] 82279- 2756 Mar, [place] [address] 95368- 0599 Mar, [place] [address] 94864- 8341 Mar, Mixed hyperlipidemia E78.2 [place] [address] [place] [id number] [place] [address] 62692- 7648 Mar, Type 2 diabetes mellitus without complication E11.9 ; Chronic pain G89.29 ; Essential hypertension I10 ; Radiculopathy of lumbar region M54.16 ; Spinal stenosis, lumbar region M48.06 ; Gastroesophageal reflux disease without esophagitis K21.9 ; HSV (herpes simplex virus) infection B00.9 ; Mixed hyperlipidemia E78.2 and Anxiety F41.9 [facility] [address] [place] [id number] [place] [address] 12493- 5541 Mar, [facility] [address] [place] [address] [id number] [place] [address] 44436- 4842 Mar, [facility] [address] [place] [id number] [place] [address] 43982- 6781 Mar, [facility] [address] [place] [id number] [place] [address] 57158- 3724 February, Chronic pain G89.29 [place] [address] [place] [address] [id number] [place] [address] 74613- 5370 February, [facility] [address] [id number] [place] [address] 17246- 2619 Jan, Chronic pain G89.29 [facility] [address] [place] [id number] [place] [address] 85306- 6268 Jan, Type 2 diabetes mellitus without complication E11.9 [place] [address] [place] [id number] [place] [address] 91109- 5723 Jan, [facility] [address] [place] [id number] [place] [address] 82552- 5043 Jan, [place] [address] [place] [id number] [place] [address] 35791- 4494 Jan, [facility] [address] [place] [address] [id number] [place] [address] 05217- 6605 Jan, Type 2 diabetes mellitus without complication [...] J01.00 and Encounter for Depo-Provera contraception Z30.42 [place] [address] [place] [id number] [place] [address] 90797- 3484 Dec, Chronic pain G89.29 [place] [address] [place] [id number] [place] [address] 74517- 4353 Dec, Abnormal ankle brachial index (BERNARDINO) R68.89 [place] [address] 85558- 3043 Dec, [place] [address] 033440- 9521 15 Dec, 2016 Routine gynecological examination Z01.419 [...] virus) infection B00.9 and Allergic rhinitis 477.9 [place] [address] [place] [id number] [place] [address] 23587- 7395 28 Nov, 2016 Chronic pain G89.29 [place] [address] [place] [id number] [place] [address] 04711- 9435 02 Nov, 2016 Chronic pain G89.29 ; [...] mucoid otitis media of both ears H65.113 [place] [address] [place] [id number] [place] [address] 41404- 5768 Oct, [facility] [id number] [place] [address] 62225- 1384 Oct, Chronic pain G89.29 [facility] [address] [place] [address] [id number] [place] [address] 34067- 4359 Oct, Chronic pain G89.29 [facility] [address] [place] [id number] [place] [address] 86306- 3322 Sep, Chronic pain G89.29 ; Type 2 diabetes mellitus without complication E11.9 ; Essential hypertension I10 ; Radiculopathy of lumbar region M54.16 ; Spinal stenosis, lumbar region M48.06 ; Gastroesophageal reflux disease without esophagitis K21.9 ; Encounter for surveillance of injectable contraceptive Z30.42 ; Bilateral cold feet R20.9 ; Pain of left foot M79.672 and Pain in right foot M79.671 [place] [address] [place] [id number] [place] [address] 94925- 3676 Sep, [facility] [address] [place] [id number] [place] [address] 09845- 4696 Aug, [place] [address] [place] [id number] [place] [address] 36233- 5775 Aug, [facility] [id number] [place] [address] 78553- 2379 Aug, Chronic pain G89.29 ; Type 2 diabetes mellitus without complication E11.9 ; Essential hypertension I10 ; Rash and nonspecific skin eruption R21 and Upper respiratory infection, acute J06.9 [place] [address] [place] [id number] [place] [address] 38642- 6118 Aug, [place] [address] 90141- 0038 Aug, [facility] [address] [id number] [place] [address] 40202- 5450 Jul, [place] [address] [place] [id number] [place] [address] 25071- 8412 Jul, Dysuria R30.0 ; Encounter for Depo-Provera contraception Z30.42 ; Herpes simplex B00.9 ; Nausea & vomiting R11.2 and Asthma J45.909 [facility] [id number] [place] [address] 47056- 6740 Jun, Dysuria R30.0 [facility] [address] [place] [id number] [place] [address] 08366- 2168 19 Jun, 2016 Dysuria R30.0 [facility] [address] 28525- 2929 15 Jun, 2016 [place] [address] 71392- 0776 13 Jun, 2016 [facility] [address] 38527- 5889 May, [facility] [address] 02400- 8736 May, [facility] [address] [place] [id number] [place] [address] 91227- 3459 May, Chronic pain G89.29 ; Essential hypertension I10 ; Type 2 diabetes mellitus without complication E11.9 ; Edema of both feet R60.0 and Rash and nonspecific skin eruption R21 [place] [address] [place] [id number] [place] [address] 29348- 8071 Apr, [facility] [address] [place] [id number] [place] [address] 91079- 1693 Mar, Carpal tunnel syndrome, left upper limb G56.02 and Carpal tunnel syndrome, right upper limb G56.01 [place] [address] 18898- 3407 Mar, [facility] [address] 52813- 9966 Mar, Encounter for Depo-Provera contraception Z30.42 [facility] [address] 38533- 2752 February, [place] [address] [place] [id number] [place] [address] 34903- 4093 February, [place] [address] [place] [id number] [place] [address] 97687- 5815 February, Chronic pain G89.29 ; Essential hypertension I10 ; Type 2 diabetes mellitus without complication E11.9 ; HSV (herpes simplex virus) infection B00.9 ; Anxiety F41.9 ; Hypersomnia G47.10 ; Tobacco abuse Z72.0 ; Hand pain, left M79.642 ; Hand pain, right M79.641 ; Left foot pain M79.672 and Heart palpitations R00.2 [place] [address] [place] [id number] [place] [address] 94336- 7300 Jan, [place] [address] [place] [id number] [place] [address] 84021- 3656 Jan, [place] [address] [place] [id number] [place] [address] 33011- 5839 Jan, [place] [address] [place] [id number] [place] [address] 87294- 4239 Jan, [place] [address] [place] [id number] [place] [address] 60694- 7384 Jan, Upper respiratory infection J06.9 and Type 2 diabetes mellitus without complication E11.9 [place] [address] [place] [id number] [place] [address] 94816- 4318 Dec, [place] [address] [place] [id number] [place] [address] 93256- 9786 Dec, Chronic pain G89.29 ; Essential hypertension I10 ; Type 2 diabetes mellitus without complication E11.9 ; HSV (herpes simplex virus) infection B00.9 ; Anxiety F41.9 ; Upper respiratory infection J06.9 ; Hypersomnia G47.10 and Tobacco abuse Z72.0 [place] [address] [place] [id number] [place] [address] 16131- 4169 Dec, Encounter for Depo-Provera contraception Z30.42 [place] [address] [place] [id number] [place] [address] 47048- 4305 Dec, [place] [address] 14243- 4948 Dec, Chronic pain G89.29 ; Sinusitis J32.9 ; Snoring R06.83 and Daytime hypersomnia G47.19 [place] [address] 68021- 4797 Nov, HSV (herpes simplex virus) infection B00.9 ; Encounter for Papanicolaou smear for cervical cancer screening Z12.4 ; Screening for STD sexually transmitted disease Z11.3 and Bartholin's gland cyst N75.0 [place] [address] 94315- 7157 Nov, [place] [address] 70724- 7732 Nov, [place] [address] 42085- 4414 Nov, Essential hypertension I10 ; Type 2 diabetes mellitus without complication E11.9 ; HSV (herpes simplex virus) infection B00.9 ; Spinal stenosis, lumbar region M48.06 and Vaginal yeast infection B37.3 [place] [address] [place] [id number] [place] [address] 65548- 0897 Nov, [place] [address] [place] [id number] [place] [address] 43602- 0070 Nov, [place] [address] 22317- 3703 Oct, [place] [address] 38016- 0317 Oct, HSV (herpes simplex virus) infection B00.9 ; Yeast infection B37.9 ; Change in bowel habit R19.4 ; Nausea & vomiting R11.2 and Gastroesophageal reflux disease without esophagitis K21.9 [place] [address] [place] [id number] [place] [address] 97988- 6023 Oct, [place] [address] 84671- 1028 Oct, Type 2 diabetes mellitus without complication E11.9 ; Essential hypertension I10 and Acute maxillary sinusitis, recurrence not specified J01.[address] 01504- 8814 Oct, [place] [address] 36556- 2336 Oct, [address] 49210- 3146 Oct, Exposure to head lice Z20.7 ; Blood glucose abnormal R73.09 ; Boil of buttock L02.32 and Type 2 diabetes mellitus without complication E11.9 [place] [address] 55070- 7080 Oct, [address] 84941- 7491 Sep, [address] 31115- 4418 Sep, [address] 32974- 9446 Aug, Encounter for Depo-Provera contraception Z30.[address] 02952- 1523 Aug, Anxiety F41.9 ; Spinal stenosis, lumbar region M48.06 ; Radiculopathy of lumbar region M54.16 ; Asthma J45.909 ; GERD (gastroesophageal reflux disease) K21.9 ; Essential hypertension I10 and Long-term use of high- risk medication Z79.[address] 10929- 0441 Jul, [place] [address] [place] [id number] [place] [address] 70087- 3337 Jun, Hemorrhoid 455.[address] 73043- 7655 Jun, [address] 39755- 7784 Jun, Anxiety 300.00 ; Asthma 493.90 ; Hyperhidrosis 705.21 ; Chest discomfort 786.59 and Upper respiratory infection 465.[address] 60650- 3220 May, Encounter for Depo-Provera contraception V25.[address] 34618- 1607 May, [address] 49863- 9233 May, [address] 81782- 2330 May, Spinal stenosis of lumbar region with radiculopathy 724.02 ; Bulging of intervertebral disc between L4 and L5 722.10 ; GERD ( gastroesophageal reflux disease) 530.81 ; Chronic pain 338.29 ; Declining mobility 799.89 and Epigastric pain 789.[address] 15030- 4648 Apr, [address] 73981- 9423 Apr, Nausea 787.02 and Heart burn 787.[address] 92061- 5301 Mar, Lumbago 724.2 ; Vitamin D deficiency 268.9 ; Anxiety 300.00 ; Allergic rhinitis 477.9 and Contraceptive surveillance V25.[address] 57322- 2853 February, 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 ; Chronic pain 338.29 and Vaginal discharge 623.5 [facility] [address] [address]- 3010 February, [facility] [address] [facility] [id number] [address]- 5749 February, [facility] [address] [id number] [place] [address] 20815- 0196 Jan, [facility] [address] [facility] [id number] [place] [address] 34310- 6366 Jan, [facility] [address] [place] [id number] [place] [address], [place] [address]- 3931 Dec, [facility] [id number] [place] [address] 23046- 1016 Dec, [facility] [id number] [place] [address] 78844- 8996 Dec, [facility] [address] [address]- 3574 Dec, [facility] [address], [place] [address]- 3811 Dec, [facility] [address], [place] [address]- 2991 Dec, [facility] [id number] [address]- 2549 Dec, [facility] [address] [facility] [id number] [address]- 5028 Dec, [facility] [address], [place] [address]- 0827 Dec, [facility] [address] [facility] [id number] 5065 Dec, [facility] [address], [place] [address]- 6056 Dec, 2014 [facility] [place] [facility] [address] [facility] [id number] [place] [address]- 6896 Dec, [facility] [place] [facility] [address] [facility] [id number] [place] [address]- 2578 Nov, 2014 [facility] [place] [facility] [address] [facility] [id number] [place] [address]- 2811 Nov, 2014 [facility] [place] [facility] [address] [facility] [id number] [place] [address]- 6815 24 Nov, 2014 [facility] [place] [facility] [address] [facility] [id number] [place] [address]- 8737 24 Nov, 2014 [facility] [place] [facility] [address] [facility] [id number] [place] [address]- 4743 23 Nov, 2014 [facility] [place] [facility] [address] [facility] [id number] [place] [address] 23 Nov, 2014 [facility] [place] [facility] [address] [facility] [id number] [place] [address] 16 Nov, 2014 [facility] [place] [facility] [address] [facility] [id number] [place] [address] 16 Nov, 2014 [facility] [place] [facility] [address] [facility] [id number] [place] [address] 13 Nov, 2014 [facility] [place] [facility] [address] [facility] [id number] [place] [address] 13 Nov, 2014 [facility] [place] [facility] [address] [facility] [id number] [place] [address] 13 Nov, 2014 [facility] [place] [facility] [address] [facility] [id number] [place] [address] 13 Nov, 2014 [facility] [place] [facility] [address] [facility] [id number] [place] [address] 13 Nov, 2014 [facility] [place] [facility] [address] [facility] [id number] [place] [address] Nov, 2014 [facility] [place] [facility] [address] [id number] [place] [address] Nov, 2014 [facility] [place] [facility] [address] [id number] [place] [address] Nov, 2014 [facility] [place] [facility] [address] [facility] [id number] [place] [address] Nov, 2014 [facility] [place] [facility] [address] [id number] [place] [address] Nov, 2014 [facility] [place] [facility] [address] [id number] [place] [address] Nov, 2014 [facility] [place] [facility] [address] [id number] [place] [address] Nov, 2014 [facility] [place] [facility] [address] [id number] [place] [address] Nov, 2014 [facility] [place] [facility] [address] [id number] [place] [address] Nov, 2014 [facility] [place] [facility] [address] [id number] [place] [address] Nov, [facility] [place] [facility] [address] [facility] [id number] [place] [address] Oct, [facility] [place] [facility] [address] [id number] [place] [address] Oct, [facility] [place] [facility] [address] [id number] [place] [address] Oct, [facility] [place] [facility] [address] [id number] [place] [address] Oct, [facility] [place] [facility] [address] [id number] [place] [address] Oct, [facility] [place] [facility] [address] [facility] [id number] [place] [address] Oct, [facility] [place] [facility] [address] [id number] [place] [address] 7137 Oct, [facility] [address] [id number] [place] [address] 6[address] Oct, [facility] [place] [facility] [address] [id number] [place] [address] 9254 Oct, [facility] [place] [facility] [address] [id number] [place] [address] 0[address] Oct, [facility] [place] [facility] [address] [id number] [place] [address] 3746 Oct, [facility] [place] [facility] [address] [id number] [place] [address] 95[address] Oct, [facility] [place] [facility] [address] [id number] [place] [address] 74[address] Oct, [facility] [place] [facility] [address] [id number] [place] [address] 4732 Oct, [facility] [place] [facility] [address] [id number] [place] [address] 4704 Oct, [facility] [place] [facility] [address] [id number] [place] [address] 8288 Oct, [facility] [place] [facility] [address] [id number] [place] [address] 7769 Oct, [facility] [place] [facility] [address] [id number] [place] [address] 4585 Oct, [facility] [place] [facility] [address] [id number] [place] [address] 1323 Oct, [facility] [place] [facility] [address] [id number] [place] [address] 6677 Oct, [facility] [place] [facility] [address] [id number] [place] [address] 9826 Oct, [facility] [place] [facility] [address] [id number] [place] [address]- 6444 Sep, [facility] [place] [facility] [address] [id number] [place] [address]- 2342 29 Sep, 2014 [facility] [place] [facility] [address] [id number] [place] [address]- 9973 18 Sep, 2014 [facility] [place] [facility] [address] [id number] [place] [address]- 0891 18 Sep, 2014 [facility] [place] [facility] [address] [id number] [place] [address]- 6253 17 Sep, 2014 [facility] [place] [facility] [address] [id number] [place] [address]- 7651 17 Sep, 2014 [facility] [place] [facility] [address] [id number] [place] [address]- 3546 15 Sep, 2014 [facility] [place] [facility] [address] [id number] [place] [address] 1944 15 Sep, 2014 [facility] [place] [facility] [address] [id number] [place] [address]- 4548 12 Sep, 2014 [facility] [place] [facility] [address] [id number] [place] [address]- 2738 12 Sep, 2014 [facility] [place] [facility] [address] [id number] [place] [address]- 5269 Sep, [facility] [place] [facility] [address] [id number] [place] [address]- 6829 Sep, [facility] [place] [facility] [address] [id number] [place] [address] 7711 Sep, [facility] [place] [facility] [address] [id number] [place] [address]- 8865 Sep, [facility] [place] [facility] [address] [id number] [place] [address]- 8178 Sep, [facility] [place] [facility] [address] [id number] [place] [address]- 4119 11 Sep, 2014 [facility] [place] [facility] [address] [id number] [place] [address]- 4566 Sep, [facility] [place] [facility] [address] [id number] [place] [address]- 1428 Sep, [facility] [place] [facility] [address] [id number] [place] [address]- 0955 Sep, [facility] [place] [facility] [address] [id number] [place] [address]- 0173 Sep, [facility] [place] [facility] [address] [id number] [place] [address] 9501 Aug, [facility] [place] [facility] [address] [id number] [place] [address] 7360 Aug, [facility] [place] [facility] [address] [id number] [place] [address]- 8090 Aug, [facility] [place] [facility] [address] [id number] [place] [address]- 3497 Aug, [facility] [place] [facility] [address] [id number] [place] [address]- 2060 Aug, [facility] [place] [facility] [address] [id number] [place] [address]- 5712 Aug, [facility] [place] [facility] [address] [facility] [id number] [place] [address]- 0716 Aug, [facility] [place] [facility] [address] [id number] [place] [address] 1284 Aug, [facility] [place] [facility] [address] [id number] [place] [address]- 7418 Aug, [facility] [place] [facility] [address] [id number] [place] [address]- 8836 Jul, [facility] [place] [facility] [address] [id number] [place] [address] 0258 Jul, [facility] [place] [facility] [address] [id number] [place] [address]- 0318 Jul, [facility] [place] [facility] [address] [id number] [place] [address]- 5233 23 Jul, 2013 [facility] [place] [facility] [address] [id number] [place] [address]- 7040 Jul, 2013 [facility] [place] [facility] [address] [id number] [place] [address]- 2604 16 Jul, 2013 [facility] [place] [facility] [address] [id number] [place] [address]- 6648 Jul, [facility] [place] [facility] [address] [id number] [place] [address]- 4925 Jul, 2013 [facility] [place] [facility] [address] [id number] [place] [address]- 6656 Jul, [facility] [place] [facility] [address] [id number] [place] [address]- 9460 Jul, [facility] [place] [facility] [address] [id number] [place] [address]- 2324 Jul, [facility] [place] [facility] [address] [id number] [place] [address]- 7439 Jul, [facility] [place] [facility] [address] [id number] [place] [address]- 4948 07 Jul, 2014 [facility] [place] [facility] [address] [id number] [place] [address]- 0037 Jul, [facility] [place] [facility] [address] [id number] [place] [address]- 1066 30 Jun, 2013 [facility] [place] [facility] [address] [id number] [place] [address]- 9127 30 Jun, 2013 [facility] [place] [facility] [address] [id number] [place] [address]- 5860 25 Jun, 2013 [facility] [place] [facility] [address] [id number] [place] [address]- 8367 25 Jun, 2013 [facility] [place] [facility] [address] [id number] [place] [address]- 0723 25 Sep, 2013 [facility] [place] [facility] [address] [id number] [place] [address] 2546 25 Sep, 2013 [facility] [place] [facility] [address] [id number] [place] [address]- 3836 24 Sep, 2013 [facility] [place] [facility] [address] [id number] [place] [address] 2546 24 Sep, 2013 [facility] [place] [facility] [address] [id number] [place] [address]- 8860 22 Sep, 2013 [facility] [place] [facility] [address] [id number] [place] [address]- 5823 22 Sep, 2013 [facility] [place] [facility] [address] [id number] [place] [address]- 5960 17 Sep, 2013 [facility] [place] [facility] [address] [id number] [place] [address]- 9755 17 Sep, 2013 [facility] [place] [facility] [address] [id number] [place] [address]- 7739 16 Sep, 2013 [facility] [place] [facility] [address] [id number] [place] [address]- 5578 16 Sep, 2013 [facility] [place] [facility] [address] [id number] [place] [address]- 4647 15 Sep, 2013 [facility] [place] [facility] [address] [id number] [place] [address]- 0358 15 Jun, 2013 [facility] [place] [facility] [address] [id number] [address] 254 12 Sep, 2013 [facility] [place] [facility] [address] [id number] [place] [address] 2546 12 Sep, 2013 [facility] [place] [facility] [address] [id number] [place] [address]- 2541 11 Sep, 2013 [facility] [place] [facility] [address] [id number] [place] [address]- 2546 11 Sep, 2013 [facility] [place] [facility] [address] [id number] [place] [address]- 8294 11 Jun, 2013 [facility] [place] [facility] [address] [id number] [place] [address]- 8946 Jun, 2013 [facility] [place] [facility] [address] [id number] [place] [address]- 6724 Jun, [facility] [place] [facility] [address] [id number] [place] [address]- 7174 Jun, [facility] [place] [facility] [address] [id number] [place] [address]- 9039 Jun, [facility] [place] [facility] [address] [id number] [place] [address]- 4581 Jun, [facility] [place] [facility] [address] [id number] [place] [address]- 3501 May, [facility] [place] [facility] [address] [id number] [place] [address]- 8690 May, [facility] [place] [facility] [address] [id number] [place] [address]- 4738 May, [facility] [place] [facility] [address] [id number] [place] [address]- 7016 May, [facility] [place] [facility] [address] [id number] [place] [address]- 5122 May, [facility] [place] [facility] [address] [id number] [place] [address]- 3871 May, [facility] [place] [facility] [address] [id number] [place] [address]- 3815 May, [facility] [place] [facility] [address] [id number] [place] [address]- 7197 May, [facility] [place] [facility] [address] [id number] [place] [address]- 0059 May, [facility] [place] [facility] [address] [id number] [place] [address]- 8488 May, [facility] [place] [facility] [address] [id number] [place] [address]- 5170 May, [facility] [place] [facility] [address] [id number] [place] [address]- 0749 May, [facility] [place] [facility] [address] [id number] [place] [address]- 2125 May, [facility] [place] [facility] [address] [id number] [place] [address]- 8716 Apr, [facility] [place] [facility] [address] [id number] [place] [address]- 0522 Apr, [facility] [place] [facility] [address] [id number] [place] [address]- 1825 Apr, [facility] [place] [facility] [address] [id number] [place] [address]- 2390 Apr, [facility] [place] [facility] [address] [id number] [place] [address]- 3291 Apr, [facility] [place] [facility] [address] [id number] [place] [address]- 1185 Mar, [facility] [place] [facility] [address] [id number] [place] [address]- 9578 Mar, [facility] [place] [facility] [address] [id number] [place] [address]- 0397 Mar, [facility] [place] [facility] [address] [id number] [place] [address]- 1868 February, [facility] [place] [facility] [address] [id number] [place] [address]- 7536 February, [facility] [place] [facility] [address] [id number] [place] [address]- 0285 February, [facility] [place] [facility] [address] [id number] [place] [address]- 3447 February, [facility] [place] [facility] [address] [id number] [place] [address]- 0036 February, [facility] [place] [facility] [address] [id number] [place] [address]- 1408 February, [facility] [place] [facility] [address] [id number] [place] [address] February, [facility] [place] [facility] [address] [id number] [place] [address]- 0932 February, [facility] [place] [facility] [address] [id number] [place] [address]- 6893 February, [facility] [place] [facility] [address] [id number] [place] [address]- 8935 Jan, [facility] [place] [facility] [address] [id number] [place] [address]- 7918 Jan, [facility] [place] [facility] [address] [id number] [place] [address]- 2412 Jan, [facility] [place] [facility] [address] [id number] [place] [address]- 6241 Jan, [facility] [place] [facility] [address] [id number] [place] [address]- 1741 Jan, [facility] [place] [facility] [address] [facility] [id number] [place] [address]- 6170 Dec, [facility] [place] [facility] [address] [id number] [place] [address]- 0623 Dec, [facility] [place] [facility] [address] [id number] [place] [address]- 2449 Dec, [facility] [place] [facility] [address] [id number] [place] [address]- 0522 Dec, [facility] [place] [facility] [address] [id number] [place] [address]- 6425 Dec, [facility] [place] [facility] [address] [id number] [place] [address]- 5824 Nov, [facility] [place] [facility] [address] [id number] [place] [address]- 2341 Nov, [facility] [place] [facility] [address] [id number] [place] [address]- 2066 Nov, [facility] [place] [facility] [address] [id number] [place] [address]- 3390 Nov, [facility] [place] [facility] [address] [id number] [place] [address]- 4107 Oct, [facility] [place] [facility] [address] [id number] [place] [address]- 2840 Oct, [facility] [place] [facility] [address] [id number] [place] [address]- 5217 Oct, [facility] [place] [facility] [address] [id number] [place] [address]- 1090 Oct, [facility] [place] [facility] [address] [id number] [place] [address]- 4894 Oct, [facility] [place] [facility] [address] [id number] [place] [address]- 8446 Oct, [facility] [place] [facility] [address] [id number] [place] [address]- 9843 Oct, [facility] [place] [facility] [address] [id number] [place] [address]- 0640 Oct, [facility] [place] [facility] [address] [id number] [place] [address]- 3126 Oct, [facility] [place] [facility] [address] [id number] [place] [address]- 0957 Oct, [facility] [place] [facility] [address] [id number] [place] [address]- 1797 Aug, [facility] [place] [facility] [address] [id number] [place] [address]- 1378 Aug, [facility] [place] [facility] [address] [id number] [place] [address]- 3601 Jul, [facility] [place] [facility] [address] [id number] [place] [address]- 3407 Jul, [facility] [place] [facility] [address] [id number] [place] [address]- 0124 Jul, [facility] [place] [facility] [address] [id number] [place] [address]- 1332 Jul, [facility] [place] [facility] [address] [id number] [place] [address]- 1750 Jul, [facility] [place] [facility] [address] [id number] [place] [address]- 6761 Jul, [facility] [place] [facility] [address] [id number] [place] [address]- 6606 Apr, [facility] [place] [facility] [address] [id number] [place] [address]- 1865 Dec, [facility] [place] [facility] [address] [id number] [place] [address]- 8957 Nov, [facility] [place] [facility] [address] [id number] [place] [address]- 9850 Nov, [facility] [place] [facility] [address] [id number] [place] [address]- 7388 Nov, [facility] [place] [facility] [address] [id number], [place] [address]- 6574 Oct, [facility] [place] [facility] [address] [id number], [place] [address]- 2317 Sep, [facility] [place] [facility] [address] [id number] [place] [address]- 3227 Sep, [facility] [place] [facility] [address] [id number] [place] [address]- 9256 Sep, [facility] [place] [facility] [address] [id number] [place] [address]- 5781 Sep, [facility] [place] [facility] [address] [id number] [place] [address]- 0523 13 Aug, 2012 [facility] [place] [facility] [address] [id number] [place] [address]- 8413 13 Aug, 2012 [facility] [place] [facility] [address] [id number] [place] [address]- 3166 Jul, [facility] [place] [facility] [address] [id number] [place] [address]- 7302 Jul, [facility] [place] [facility] [address] [id number] [place] [address]- 0883 28 Jun, 2012 [facility] [place] [facility] [address] [id number] [place] 7190 26 Jun, 2012 [facility] [place] [facility] [address] [id number] [place] [address]- 9335 24 Jun, 2012 [facility] [place] [facility] [address] [id number] [place] [address]- 7522 24 Jun, 2012 [facility] [place] [facility] [address] [id number] [place] [address]- 4870 12 Jun, 2012 [facility] [place] [facility] [address] [id number] [place] [address]- 3152 Apr, [facility] [place] [facility] [address] [id number] [place] [address]- 6868 30 Apr, 2012 [facility] [place] [facility] [address] [id number] [place] [address]- 1001 Apr, [facility] [place] [facility] [address] [id number] [place] [address]- 8486 Mar, [facility] [place] [facility] [address] [id number] [place] [address]- 1729 Mar, [facility] [place] [facility] [address] [id number] [place] [address]- 6046 Mar, [facility] [place] [facility] [address] [id number] [place] [address]- 8924 February, [facility] [address] [id number] [place] [address]- 0227 18 Jan, 2012 [facility] [place] [facility] [address] [id number] [place] [address]- 4084 Dec, [facility] [place] [facility] [address] [id number] [place] [address]- 9294 Dec, [facility] [place] [facility] [address] [id number] [place] [address]- 9724 Dec, [facility] [place] [facility] [address] [id number] [place] [address]- 1236 Dec, [facility] [place] [facility] [address] [id number] [place] [address]- 2484 Dec, [facility] [place] [facility] [address] [id number] [place] [address]- 8624 14 Nov, 2011 [facility] [place] [facility] [address] [id number] [place] [address]- 7613 13 Nov, 2011 [facility] [place] [facility] [address] [id number] [place] [address]- 1806 Oct, [facility] [place] [facility] [address] [id number] [place] [address]- 9295 Oct, [facility] [place] [facility] [address] [id number] [place] [address]- 1934 Oct, [facility] [place] [facility] [address] [id number], [place] [address]- 8717 Sep, [facility] [place] [facility] [address] [id number] [place] [address]- 1483 Aug, [facility] [place] [facility] [address] [id number] [place] [address]- 2252 10 Aug, 2011 [facility] [place] [facility] [address] [id number] [place] [address]- 2763 28 Jul, 2011 [facility] [place] [facility] [address] [id number] [place] [address]- 7790 24 Jul, 2011 [facility] [address] [id number] [place] [address]- 6376 19 Jul, 2011 [facility] [place] [facility] [address] [id number] [place] [address]- 6926 13 Jan, 2011 [facility] [place] [facility] [address] [id number] [place] [address]- 7106 29 Sep, 2010 [facility] [place] [facility] [address] [id number] [place] [address] 2546 27 Sep, 2010 [facility] [place] [facility] [address] [id number] [place] [address]- 1920 Sep, [facility] [place] [facility] [address] [id number] [place] [address]- 8450 Sep, [facility] [address] [id number] [place] [address]- 7561 06 Sep, 2010 [facility] [place] [facility] [address] [id number] [place] [address]- 7381 16 Aug, 2010 [facility] [place] [facility] [address] [id number] [place] [address]- 8751 16 Aug, 2010 [facility] [place] [facility] [address] [id number] [place] [address]- 8089 08 Aug, 2010 [facility] [place] [facility] [address] [id number] [place] [address]- 2756 Jul, [facility] [place] [facility] [address] [id number] [place] [address]- 254 Jul, [facility] [place] [facility] [address] [id number] [place] [address]- 8219 Jul, [facility] [place] [facility] [address] [id number] [place] [address]- 2546 May, [facility] [place] [facility] [address] [id number] [place] [address] 13 Apr, 2010 [facility] [address] [id number] [address] Dec, [facility] [id number] [address] Sep, [facility] [id number] [address] Sep, [facility] [id number] [address] Aug, [facility] [id number] [address] Aug, [facility] [id number] [address] Jul, [facility] [address] [id number] [address] Mar, IMMUNIZATIONS No Known Immunizations SOCIAL HISTORY Never Assessed REASON FOR VISIT Medication question PLAN OF CARE VITAL SIGNS MEDICATIONS Unknown [...]
--- OUTSIDE RECORDS SUMMARY | 2018-10-08 19:52 | XMS REPORT ---
Author Author JENNY WOLF 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 537458514 Problem Edema of both feet R60.0 Active 542370523 Problem Tobacco abuse Z72.0 Active 24337997 Problem Chronic migraine G43.709 Active 17897257 Problem Mixed hyperlipidemia E78.2 Active 907526551 Problem Spinal stenosis, lumbar region M48.06 Active 47611594 Problem Anxiety F41.9 Active 41651690 Problem Radiculopathy of lumbar region M54.16 Active 429566888 Problem Bulging lumbar disc M51.26 Active 926608695 Problem Asthma J45.909 Active 360909934 Problem Essential hypertension I10 Active 15841272 ALLERGIES No Information ENCOUNTERS Encounter Location Date Diagnosis [facility] [id number] [place] [address] 10107- 8714 Apr, Chronic pain G89.29 and Anxiety F41.9 [facility] [address] [place] [id number] [place] [address] 08285- 1544 Mar, HSV (herpes simplex virus) infection B00.9 ; Anxiety F41.9 and Chronic pain G89.29 [facility] [address] [id number] [address] 65[address] Mar, [place] [id number] [place] [address] 58723- 6777 Mar, Chronic pain G89.29 [place] [id number]- 5897 February, Chronic pain G89.29 [place] [address] 81917- 9030 Jan, Chronic pain G89.29 [place] [address] 15285- 7503 Jan, 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 [place] [address] 073932- 9535 Jan, Encounter for Depo-Provera contraception Z30.42 [place] [address] 69208- 1436 Jan, [place] [address] 42837- 9507 Jan, Chronic pain G89.29 and Anxiety F41.9 [place] [address] 74293- 2797 Jan, [place] [id number] [place] [address] 88394- 6656 Dec, [place] [id number] [place] [address] 71564- 8760 Dec, Gastroesophageal reflux disease without esophagitis K21.9 and Anxiety F41.9 [place] [address] 92364- 9929 Dec, Essential hypertension I10 ; Mixed hyperlipidemia E78.2 ; Type 2 diabetes mellitus with diabetic neuropathy, unspecified E11.40 ; 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 ; Chronic pain G89.29 ; HSV (herpes simplex virus) infection B00.9 ; Anxiety F41.9 and Gastroesophageal reflux disease without esophagitis K21.9 [place] [address] [place] [address]- 0706 Dec, Chronic pain G89.29 and Chronic migraine G43.709 [place] [address] 23326- 3886 Nov, [place] [address] 13923- 5256 Nov, Essential hypertension I10 and Chronic pain G89.29 [place] [address] 05127- 7958 Nov, Chronic pain G89.29 ; Essential hypertension I10 and Type 2 diabetes mellitus without complication E11.[address] 39528- 1835 Oct, Chronic pain G89.[address] 14802- 2710 Oct, [place] [address] 43641- 0354 Sep, Type 2 diabetes mellitus without complication E11.9 ; Essential hypertension I10 ; prison (current) use of insulin Z79.4 ; Chronic migraine G43.709 ; Chronic pain G89.29 and Acute non-recurrent maxillary sinusitis J01.00 [place] [id number] [place] [address] 10395- 3422 Sep, Encounter for Depo-Provera contraception Z30.42 [place] [address] 80682- 7079 Sep, Chronic pain G89.29 and Radiculopathy of lumbar region M54.[address] 85054- 6960 Sep, [address] 13459- 6270 Sep, [address] 89508- 2505 Aug, Type 2 diabetes mellitus without complication E11.9 [facility] [address] [address]- 4749 Aug, [facility] [id number] [place] [address] 01754- 9107 Aug, Radiculopathy of lumbar region M54.16 and Chronic pain G89.29 [facility] [id number] [place] [address] 49784- 0907 Aug, Type 2 diabetes mellitus without complication E11.9 [facility] [id number] [place] [address] 32043- 2451 Aug, Type 2 diabetes mellitus without complication E11.9 [facility] [id number] [place] [address] 79299- 0694 Jul, Type 2 diabetes mellitus without complication E11.9 [facility] [id number] [place] [address] 37528- 7513 Jul, [facility] [id number] [place] [address] 19123- 3322 Jul, Chronic pain G89.29 [facility] [id number] [place] [address] 76359- 9019 Jul, [facility] [address] [address]- 6349 Jul, [facility] [id number] [place] [address] 35127- 7105 Jul, Type 2 diabetes mellitus without complication E11.9 [facility] [id number] [place] [address] 13668- 3540 Jul, [facility] [id number] [place] [address] 21956- 4545 Jul, Type 2 diabetes mellitus without complication E11.9 [facility] [id number] [place] [address] 84615- 9925 Jul, [facility] [id number] [place] [address] 81776- 8238 Jul, [facility] [address] 22322- 2004 Jul, [place] [id number] [place] [address] 67418- 6137 Jun, Type 2 diabetes mellitus without complication E11.9 [facility] [address] 51418- 4877 Jun, Chronic migraine G43.709 ; Type 2 diabetes mellitus without complication E11.9 ; Calculus of right kidney N20.0 ; Yeast dermatitis B37.2 and HSV (herpes simplex virus) infection B00.9 [place] [id number] [place] [address] 21053- 4827 Jun, Type 2 diabetes mellitus without complication E11.9 [place] [address] 33893- 9993 Jun, [place] [address] 65332- 9394 Jun, Radiculopathy of lumbar region M54.16 and Chronic pain G89.29 [place] [id number] [place] [address] 37365- 0359 Jun, Encounter for Depo-Provera contraception Z30.42 [place] [id number] [place] [address] 30204- 0078 Jun, Type 2 diabetes mellitus without complication E11.9 [place] [id number] [place] [address] 99944- 1568 Jun, [facility] [id number] [place] [address] 20677 -7507 May, Acute nasopharyngitis (common cold) J00 [facility] [address] 09994- 0785 May, Chronic pain G89.29 [place] [id number] [place] [address] 24795- 8092 May, Headache following lumbar puncture G97.1 [place] [id number] [place] [address] 20327- 1645 08 May, 2017 Radiculopathy of lumbar region M54.16 [place] [address] 24344- 8121 Apr, [place] [address] 41856- 9277 Apr, Type 2 diabetes mellitus without complication E11.9 ; Chronic pain G89.29 ; Essential hypertension I10 ; Radiculopathy of lumbar region M54.16 ; Spinal stenosis, lumbar region M48.06 ; Gastroesophageal reflux disease without esophagitis K21.9 ; HSV (herpes simplex virus) infection B00.9 ; Mixed hyperlipidemia E78.2 ; Anxiety F41.9 and Asthma J45.909 [place] [address] 71606- 6605 Apr, Encounter for Depo-Provera contraception Z30.42 [place] [id number] [place] [address] 93217- 5919 Apr, Chronic pain G89.29 and Anxiety F41.9 [place] [id number] [place] [address] 94545- 9832 Mar, [place] [address] 78988- 6725 Mar, [place] [address] 32978- 4040 Mar, Mixed hyperlipidemia E78.2 [place] [id number] [place] [address] 73571- 9080 Mar, Type 2 diabetes mellitus without complication E11.9 ; Chronic pain G89.29 ; Essential hypertension I10 ; Radiculopathy of lumbar region M54.16 ; Spinal stenosis, lumbar region M48.06 ; Gastroesophageal reflux disease without esophagitis K21.9 ; HSV (herpes simplex virus) infection B00.9 ; Mixed hyperlipidemia E78.2 and Anxiety F41.9 [facility] [id number] [place] [address] 35578- 5106 Mar, [facility] [id number] [place] [address] 74446- 7298 Mar, [facility] [id number] [place] [address] 79184- 0721 Mar, [facility] [id number] [place] [address] 28028- 7171 February, Chronic pain G89.29 [place] [id number] [place] [address] 17030- 1590 February, [facility] [id number] [place] [address] 77491- 5118 Jan, Chronic pain G89.29 [facility] [id number] [place] [address] 88388- 2923 Jan, Type 2 diabetes mellitus without complication E11.9 [place] [id number] [place] [address] 94324- 7741 Jan, [facility] [id number] [place] [address] 14330- 1308 Jan, [place] [id number] [place] [address] 26318- 7243 Jan, [facility] [id number] [place] [address] 53117- 1423 Jan, Type 2 diabetes mellitus without complication [...] J01.00 and Encounter for Depo-Provera contraception Z30.42 [place] [id number] [place] [address] 18833- 6236 Dec, Chronic pain G89.29 [place] [id number] [place] [address] 42428- 5878 Dec, Abnormal ankle brachial index (BERNARDINO) R68.89 [place] [address] 02343- 7139 Dec, [place] [address] 424675- 6886 15 Dec, 2016 Routine gynecological examination Z01.419 [...] virus) infection B00.9 and Allergic rhinitis 477.9 [place] [id number] [place] [address] 15595- 1043 28 Nov, 2016 Chronic pain G89.29 [place] [address] [id number] [place] [address] 16838- 0322 02 Nov, 2016 Chronic pain G89.29 ; [...] mucoid otitis media of both ears H65.113 [place] [address] [id number] [place] [address] 66701- 8414 Oct, [facility] [id number] [place] [address] 92810- 2855 Oct, Chronic pain G89.29 [facility] [id number] [place] [address] 89277- 2289 Oct, Chronic pain G89.29 [facility] [id number] [place] [address] 05797- 5751 Sep, Chronic pain G89.29 ; Type 2 diabetes mellitus without complication E11.9 ; Essential hypertension I10 ; Radiculopathy of lumbar region M54.16 ; Spinal stenosis, lumbar region M48.06 ; Gastroesophageal reflux disease without esophagitis K21.9 ; Encounter for surveillance of injectable contraceptive Z30.42 ; Bilateral cold feet R20.9 ; Pain of left foot M79.672 and Pain in right foot M79.671 [place] [id number] [place] [address] 88032- 4017 Sep, [facility] [id number] [place] [address] 60782- 2000 Aug, [place] [address] [id number] [place] [address] 74869- 8842 Aug, [facility] [id number] [place] [address] 71385- 9837 Aug, Chronic pain G89.29 ; Type 2 diabetes mellitus without complication E11.9 ; Essential hypertension I10 ; Rash and nonspecific skin eruption R21 and Upper respiratory infection, acute J06.9 [place] [id number] [place] [address] 60225- 7222 Aug, [place] [address] 09115- 5143 Aug, [facility] [id number] [place] [address] 45346- 2601 Jul, [place] [id number] [place] [address] 48518- 7681 Jul, Dysuria R30.0 ; Encounter for Depo-Provera contraception Z30.42 ; Herpes simplex B00.9 ; Nausea & vomiting R11.2 and Asthma J45.909 [facility] [id number] [place] [address] 05663- 4588 Jun, Dysuria R30.0 [facility] [id number] [place] [address] 03373- 6677 19 Jun, 2016 Dysuria R30.0 [facility] [address] 65737- 9362 15 Jun, 2016 [place] [address] 70424- 0125 13 Jun, 2016 [facility] [address] 65804- 9593 May, [facility] [address] 71818- 3492 May, [facility] [id number] [place] [address] 27887- 2759 May, Chronic pain G89.29 ; Essential hypertension I10 ; Type 2 diabetes mellitus without complication E11.9 ; Edema of both feet R60.0 and Rash and nonspecific skin eruption R21 [place] [id number] [place] [address] 20740- 4663 Apr, [facility] [id number] [place] [address] 88689- 8872 Mar, Carpal tunnel syndrome, left upper limb G56.02 and Carpal tunnel syndrome, right upper limb G56.01 [place] [address] 63744- 0311 Mar, [facility] [address] 73998- 8655 Mar, Encounter for Depo-Provera contraception Z30.42 [facility] [address] 90922- 2504 February, [place] [address] [address] [id number] [place] [address] 37725- 2861 February, [place] [address] [address] [id number] [place] [address] 50401- 2033 February, Chronic pain G89.29 ; Essential hypertension I10 ; Type 2 diabetes mellitus without complication E11.9 ; HSV (herpes simplex virus) infection B00.9 ; Anxiety F41.9 ; Hypersomnia G47.10 ; Tobacco abuse Z72.0 ; Hand pain, left M79.642 ; Hand pain, right M79.641 ; Left foot pain M79.672 and Heart palpitations R00.2 [place] [address] [address] [id number] [place] [address] 94041- 0920 Jan, [place] [address] [id number] [place] [address] 62914- 3662 Jan, [place] [address] [id number] [place] [address] 91242- 1555 Jan, [place] [address] [address] [id number] [place] [address] 00296- 7851 Jan, [place] [address] [id number] [place] [address] 85882- 5986 Jan, Upper respiratory infection J06.9 and Type 2 diabetes mellitus without complication E11.9 [place] [address] [address] [id number] [place] [address] 37596- 7045 Dec, [place] [address] [address] [id number] [place] [address] 93992- 7711 Dec, Chronic pain G89.29 ; Essential hypertension I10 ; Type 2 diabetes mellitus without complication E11.9 ; HSV (herpes simplex virus) infection B00.9 ; Anxiety F41.9 ; Upper respiratory infection J06.9 ; Hypersomnia G47.10 and Tobacco abuse Z72.0 [place] [address] [address] [id number] [place] [address] 57265- 4503 Dec, Encounter for Depo-Provera contraception Z30.42 [place] [address] [id number] [place] [address] 90101- 1604 Dec, [place] [address] 98408- 7579 Dec, Chronic pain G89.29 ; Sinusitis J32.9 ; Snoring R06.83 and Daytime hypersomnia G47.19 [place] [address] 85491- 4865 Nov, HSV (herpes simplex virus) infection B00.9 ; Encounter for Papanicolaou smear for cervical cancer screening Z12.4 ; Screening for STD sexually transmitted disease Z11.3 and Bartholin's gland cyst N75.0 [place] [address] 62700- 6509 Nov, [place] [address] 01186- 5770 Nov, [place] [address] 24185- 4281 Nov, Essential hypertension I10 ; Type 2 diabetes mellitus without complication E11.9 ; HSV (herpes simplex virus) infection B00.9 ; Spinal stenosis, lumbar region M48.06 and Vaginal yeast infection B37.3 [place] [address] [address] [id number] [place] [address] 97496- 0659 Nov, [place] [address] [address] [id number] [place] [address] 62610- 2831 Nov, [place] [address] 93690- 7069 Oct, [place] [address] 99330- 6685 Oct, HSV (herpes simplex virus) infection B00.9 ; Yeast infection B37.9 ; Change in bowel habit R19.4 ; Nausea & vomiting R11.2 and Gastroesophageal reflux disease without esophagitis K21.9 [place] [address] [place] [address] [id number] [place] [address] 15417- 8964 Oct, [place] [address] 90910- 7782 Oct, Type 2 diabetes mellitus without complication E11.9 ; Essential hypertension I10 and Acute maxillary sinusitis, recurrence not specified J01.[address] 07793- 1850 Oct, [place] [address] 30283- 6342 Oct, [address] 85409- 2192 Oct, Exposure to head lice Z20.7 ; Blood glucose abnormal R73.09 ; Boil of buttock L02.32 and Type 2 diabetes mellitus without complication E11.9 [place] [address] 36184- 1653 Oct, [address] 48458- 6194 Sep, [address] 37590- 0357 Sep, [address] 78115- 6633 Aug, Encounter for Depo-Provera contraception Z30.[address] 59770- 8322 Aug, Anxiety F41.9 ; Spinal stenosis, lumbar region M48.06 ; Radiculopathy of lumbar region M54.16 ; Asthma J45.909 ; GERD (gastroesophageal reflux disease) K21.9 ; Essential hypertension I10 and Long-term use of high- risk medication Z79.[address] 17532- 7475 Jul, [place] [address] [place] [address] [id number] [place] [address] 49014- 4709 Jun, Hemorrhoid 455.[address] 29299- 2421 Jun, [address] 06953- 0755 Jun, Anxiety 300.00 ; Asthma 493.90 ; Hyperhidrosis 705.21 ; Chest discomfort 786.59 and Upper respiratory infection 465.[address] 86825- 7126 May, Encounter for Depo-Provera contraception V25.[address] 09639- 8985 May, [address] 68047- 3991 May, [address] 26430- 9660 May, Spinal stenosis of lumbar region with radiculopathy 724.02 ; Bulging of intervertebral disc between L4 and L5 722.10 ; GERD ( gastroesophageal reflux disease) 530.81 ; Chronic pain 338.29 ; Declining mobility 799.89 and Epigastric pain 789.[address] 75141- 3466 Apr, [address] 15753- 4041 Apr, Nausea 787.02 and Heart burn 787.[address] 22664- 3462 Mar, Lumbago 724.2 ; Vitamin D deficiency 268.9 ; Anxiety 300.00 ; Allergic rhinitis 477.9 and Contraceptive surveillance V25.[address] 87587- 6764 February, 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 ; Chronic pain 338.29 and Vaginal discharge 623.5 [facility] [address] [address]- 5043 February, [facility] [address] [facility] [id number] [address]- 6430 February, [facility] [id number] [place] [address] 51757- 4302 Jan, [facility] [address] [facility] [id number] [place] [address] 58046- 4324 Jan, [facility] [id number] [place] [address], [place] [address]- 4776 Dec, [facility] [id number] [place] [address] 83972- 6672 Dec, [facility] [id number] [place] [address] 28472- 7242 Dec, [facility] [address] [address]- 2366 Dec, [facility] [address] [address]- 5866 Dec, [facility] [address] [address]- 7462 Dec, [facility] [id number] [address]- 0271 Dec, [facility] [address] [facility] [id number], [place] [address]- 5370 Dec, [facility] [address] [address]- 1598 Dec, [facility] [address] [facility] [id number] 4415 Dec, [facility] [address] [address]- 3573 Dec, 2014 [facility] [place] [facility] [address] [facility] [id number] [place] [address]- 2473 Dec, [facility] [place] [facility] [address] [facility] [id number] [place] [address]- 8918 Nov, 2014 [facility] [place] [facility] [address] [facility] [id number] [place] [address]- 5322 Nov, 2014 [facility] [place] [facility] [address] [facility] [id number] [place] [address]- 3060 24 Nov, 2014 [facility] [place] [facility] [address] [facility] [id number] [place] [address]- 8805 24 Nov, 2014 [facility] [place] [facility] [address] [facility] [id number] [place] [address]- 0244 23 Nov, 2014 [facility] [place] [facility] [address] [facility] [id number] [place] [address]- 8649 23 Nov, 2014 [facility] [place] [facility] [address] [facility] [id number] [place] [address]- 2547 16 Nov, 2014 [facility] [place] [facility] [address] [facility] [id number] [place] [address]- 7243 16 Nov, 2014 [facility] [place] [facility] [address] [facility] [id number] [place] [address]- 0272 13 Nov, 2014 [facility] [place] [facility] [address] [facility] [id number] [place] [address]- 2546 13 Nov, 2014 [facility] [place] [facility] [address] [facility] [id number] [place] [address]- 2543 13 Nov, 2014 [facility] [place] [facility] [address] [facility] [id number] [place] [address]- 7308 13 Nov, 2014 [facility] [place] [facility] [address] [facility] [id number] [place] [address]- 2543 13 Nov, 2014 [facility] [place] [facility] [address] [facility] [id number] [place] [address]- 8079 Nov, 2014 [facility] [place] [facility] [address] [id number] [place] [address]- 7619 Nov, 2014 [facility] [place] [facility] [address] [id number] [place] [address]- 3164 Nov, 2014 [facility] [place] [facility] [address] [facility] [id number] [place] [address] Nov, 2014 [facility] [place] [facility] [address] [id number] [place] [address] Nov, 2014 [facility] [place] [facility] [address] [id number] [place] [address] Nov, 2014 [facility] [place] [facility] [address] [id number] [place] [address] Nov, 2014 [facility] [place] [facility] [address] [id number] [place] [address] Nov, 2014 [facility] [place] [facility] [address] [id number] [place] [address] Nov, 2014 [facility] [place] [facility] [address] [id number] [place] [address] Nov, [facility] [place] [facility] [address] [facility] [id number] [place] [address] Oct, [facility] [place] [facility] [address] [id number] [place] [address] Oct, [facility] [place] [facility] [address] [id number] [place] [address] Oct, [facility] [place] [facility] [address] [id number] [place] [address] Oct, [facility] [place] [facility] [address] [id number] [place] [address] Oct, [facility] [place] [facility] [address] [facility] [id number] [place] [address] Oct, [facility] [place] [facility] [address] [id number] [place] [address] Oct, [facility] [address] [id number] [place] [address] Oct, [facility] [place] [facility] [address] [id number] [place] [address] 1445 Oct, [facility] [place] [facility] [address] [id number] [place] [address] 24[address] Oct, [facility] [place] [facility] [address] [id number] [place] [address] Oct, [facility] [place] [facility] [address] [id number] [place] [address]489 Oct, [facility] [place] [facility] [address] [id number] [place] [address] Oct, [facility] [place] [facility] [address] [id number] [place] [address] 9974 Oct, [facility] [place] [facility] [address] [id number] [place] [address]- 7712 Oct, [facility] [place] [facility] [address] [id number] [place] [address] 7[address] Oct, [facility] [place] [facility] [address] [id number] [place] [address]- 9895 Oct, [facility] [place] [facility] [address] [id number] [place] [address]- 5[address] Oct, [facility] [place] [facility] [address] [id number] [place] [address]- 0499 Oct, [facility] [place] [facility] [address] [id number] [place] [address]- 0474 Oct, [facility] [place] [facility] [address] [id number] [place] [address]- 6176 Oct, [facility] [place] [facility] [address] [id number] [place] [address]- 68[address] Sep, [facility] [place] [facility] [address] [id number] [place] [address]- 1228 29 Sep, 2014 [facility] [place] [facility] [address] [id number] [place] [address]- 6522 18 Sep, 2014 [facility] [place] [facility] [address] [id number] [place] [address]- 4813 18 Sep, 2014 [facility] [place] [facility] [address] [id number] [place] [address]- 3589 17 Sep, 2014 [facility] [place] [facility] [address] [id number] [place] [address]- 7714 17 Sep, 2014 [facility] [place] [facility] [address] [id number] [place] [address]- 2652 15 Sep, 2014 [facility] [place] [facility] [address] [id number] [place] [address]- 4321 15 Sep, 2014 [facility] [place] [facility] [address] [id number] [place] [address]- 2915 12 Sep, 2014 [facility] [place] [facility] [address] [id number] [place] [address]- 9023 12 Sep, 2014 [facility] [place] [facility] [address] [id number] [place] [address]- 8199 Sep, [facility] [place] [facility] [address] [id number] [place] [address]- 3302 Sep, [facility] [place] [facility] [address] [id number] [place] [address]- 9233 Sep, [facility] [place] [facility] [address] [id number] [place] [address]- 9740 Sep, [facility] [place] [facility] [address] [id number] [place] [address]- 7845 Sep, [facility] [place] [facility] [address] [id number] [place] [address]- 5504 11 Sep, 2014 [facility] [place] [facility] [address] [id number] [place] [address]- 0680 Sep, [facility] [place] [facility] [address] [id number] [place] [address]- 9623 Sep, [facility] [place] [facility] [address] [id number] [place] [address]- 0918 Sep, [facility] [place] [facility] [address] [id number] [place] [address]- 4007 Sep, [facility] [place] [facility] [address] [id number] [place] [address]- 3824 Aug, [facility] [place] [facility] [address] [id number] [place] [address]- 8903 Aug, [facility] [place] [facility] [address] [id number] [place] [address]- 6005 Aug, [facility] [place] [facility] [address] [id number] [place] [address]- 1273 Aug, [facility] [place] [facility] [address] [id number] [place] [address]- 0564 Aug, [facility] [place] [facility] [address] [id number] [place] [address]- 3667 Aug, [facility] [place] [facility] [address] [facility] [id number] [place] [address]- 4801 Aug, [facility] [place] [facility] [address] [id number] [place] [address]- 5192 Aug, [facility] [place] [facility] [address] [id number] [place] [address]- 0222 Aug, [facility] [place] [facility] [address] [id number] [place] [address]- 6869 Jul, [facility] [place] [facility] [address] [id number] [place] [address]- 7575 Jul, [facility] [place] [facility] [address] [id number] [place] [address]- 5798 Jul, [facility] [place] [facility] [address] [id number] [place] [address]- 8175 23 Jul, 2013 [facility] [place] [facility] [address] [id number] [place] [address]- 5870 Jul, 2013 [facility] [place] [facility] [address] [id number] [place] [address]- 3510 16 Jul, 2013 [facility] [place] [facility] [address] [id number] [place] [address]- 8388 Jul, [facility] [place] [facility] [address] [id number] [place] [address]- 4245 Jul, 2013 [facility] [place] [facility] [address] [id number] [place] [address]- 4702 Jul, [facility] [place] [facility] [address] [id number] [place] [address]- 2168 Jul, [facility] [place] [facility] [address] [id number] [place] [address]- 4330 Jul, [facility] [place] [facility] [address] [id number] [place] [address]- 1402 Jul, [facility] [place] [facility] [address] [id number] [place] [address]- 3027 07 Jul, 2014 [facility] [place] [facility] [address] [id number] [place] [address]- 7376 Jul, [facility] [place] [facility] [address] [id number] [place] [address]- 3223 30 Jun, 2013 [facility] [place] [facility] [address] [id number] [place] [address]- 2696 30 Jun, 2013 [facility] [place] [facility] [address] [id number] [place] [address]- 3041 25 Jun, 2013 [facility] [place] [facility] [address] [id number] [place] [address]- 6532 25 Jun, 2013 [facility] [place] [facility] [address] [id number] [place] [address]- 0127 25 Sep, 2013 [facility] [place] [facility] [address] [id number] [place] [address] 2546 25 Sep, 2013 [facility] [place] [facility] [address] [id number] [place] [address]- 2966 24 Sep, 2013 [facility] [place] [facility] [address] [id number] [place] [address] 2546 24 Sep, 2013 [facility] [place] [facility] [address] [id number] [place] [address]- 4246 22 Sep, 2013 [facility] [place] [facility] [address] [id number] [place] [address]- 6162 22 Sep, 2013 [facility] [place] [facility] [address] [id number] [place] [address]- 6341 17 Sep, 2013 [facility] [place] [facility] [address] [id number] [place] [address]- 4300 17 Sep, 2013 [facility] [place] [facility] [address] [id number] [place] [address]- 3314 16 Sep, 2013 [facility] [place] [facility] [address] [id number] [place] [address]- 4439 16 Sep, 2013 [facility] [place] [facility] [address] [id number] [place] [address]- 6464 15 Sep, 2013 [facility] [place] [facility] [address] [id number] [place] [address]- 8447 15 Jun, 2013 [facility] [place] [facility] [address] [id number] [address] 2549 12 Sep, 2013 [facility] [place] [facility] [address] [id number] [place] [address] 2546 12 Sep, 2013 [facility] [place] [facility] [address] [id number] [place] [address]- 2542 11 Sep, 2013 [facility] [place] [facility] [address] [id number] [place] [address]- 2546 11 Sep, 2013 [facility] [place] [facility] [address] [id number] [place] [address]- 6850 11 Jun, 2013 [facility] [place] [facility] [address] [id number] [place] [address]- 8751 Jun, 2013 [facility] [place] [facility] [address] [id number] [place] [address]- 4468 Jun, [facility] [place] [facility] [address] [id number] [place] [address]- 1558 Jun, [facility] [place] [facility] [address] [id number] [place] [address]- 0770 Jun, [facility] [place] [facility] [address] [id number] [place] [address]- 0640 Jun, [facility] [place] [facility] [address] [id number] [place] [address]- 3876 May, [facility] [place] [facility] [address] [id number] [place] [address]- 5697 May, [facility] [place] [facility] [address] [id number] [place] [address]- 1541 May, [facility] [place] [facility] [address] [id number] [place] [address]- 9492 May, [facility] [place] [facility] [address] [id number] [place] [address]- 4116 May, [facility] [place] [facility] [address] [id number] [place] [address]- 0412 May, [facility] [place] [facility] [address] [id number] [place] [address]- 7801 May, [facility] [place] [facility] [address] [id number] [place] [address]- 9354 May, [facility] [place] [facility] [address] [id number] [place] [address]- 6760 May, [facility] [place] [facility] [address] [id number] [place] [address]- 0439 May, [facility] [place] [facility] [address] [id number] [place] [address]- 1421 May, [facility] [place] [facility] [address] [id number] [place] [address]- 8786 May, [facility] [place] [facility] [address] [id number] [place] [address]- 6674 May, [facility] [place] [facility] [address] [id number] [place] [address]- 2714 Apr, [facility] [place] [facility] [address] [id number] [place] [address]- 5207 Apr, [facility] [place] [facility] [address] [id number] [place] [address]- 8922 Apr, [facility] [place] [facility] [address] [id number] [place] [address]- 1356 Apr, [facility] [place] [facility] [address] [id number] [place] [address]- 8447 Apr, [facility] [place] [facility] [address] [id number] [place] [address]- 4650 Mar, [facility] [place] [facility] [address] [id number] [place] [address]- 8061 Mar, [facility] [place] [facility] [address] [id number] [place] [address]- 4297 Mar, [facility] [place] [facility] [address] [id number] [place] [address]- 2475 February, [facility] [place] [facility] [address] [id number] [place] [address]- 4126 February, [facility] [place] [facility] [address] [id number] [place] [address]- 8114 February, [facility] [place] [facility] [address] [id number] [place] [address]- 5700 February, [facility] [place] [facility] [address] [id number] [place] [address]- 8739 February, [facility] [place] [facility] [address] [id number] [place] [address]- 6962 February, [facility] [place] [facility] [address] [id number] [place] [address]89 February, [facility] [place] [facility] [address] [id number] [place] [address]- 8487 February, [facility] [place] [facility] [address] [id number] [place] [address]- 2039 February, [facility] [place] [facility] [address] [id number] [place] [address]- 0805 Jan, [facility] [place] [facility] [address] [id number] [place] [address]- 9583 Jan, [facility] [place] [facility] [address] [id number] [place] [address]- 1568 Jan, [facility] [place] [facility] [address] [id number] [place] [address]- 5114 Jan, [facility] [place] [facility] [address] [id number] [place] [address]- 3693 Jan, [facility] [place] [facility] [address] [facility] [id number] [place] [address]- 9448 Dec, [facility] [place] [facility] [address] [id number] [place] [address]- 5382 Dec, [facility] [place] [facility] [address] [id number] [place] [address]- 3362 Dec, [facility] [place] [facility] [address] [id number] [place] [address]- 9468 Dec, [facility] [place] [facility] [address] [id number] [place] [address]- 9132 Dec, [facility] [place] [facility] [address] [id number] [place] [address]- 7955 Nov, [facility] [place] [facility] [address] [id number] [place] [address]- 6784 Nov, [facility] [place] [facility] [address] [id number] [place] [address]- 5636 Nov, [facility] [place] [facility] [address] [id number] [place] [address]- 5149 Nov, [facility] [place] [facility] [address] [id number] [place] [address]- 8100 Oct, [facility] [place] [facility] [address] [id number] [place] [address]- 9868 Oct, [facility] [place] [facility] [address] [id number] [place] [address]- 8079 Oct, [facility] [place] [facility] [address] [id number] [place] [address]- 9718 Oct, [facility] [place] [facility] [address] [id number] [place] [address]- 2383 Oct, [facility] [place] [facility] [address] [id number] [place] [address]- 1520 Oct, [facility] [place] [facility] [address] [id number] [place] [address]- 7930 Oct, [facility] [place] [facility] [address] [id number] [place] [address]- 8751 Oct, [facility] [place] [facility] [address] [id number] [place] [address]- 1480 Oct, [facility] [place] [facility] [address] [id number] [place] [address]- 8446 Oct, [facility] [place] [facility] [address] [id number] [place] [address]- 6115 Aug, [facility] [place] [facility] [address] [id number] [place] [address]- 5173 Aug, [facility] [place] [facility] [address] [id number] [place] [address]- 9338 Jul, [facility] [place] [facility] [address] [id number] [place] [address]- 9187 Jul, [facility] [place] [facility] [address] [id number] [place] [address]- 5454 Jul, [facility] [place] [facility] [address] [id number] [place] [address]- 5877 Jul, [facility] [place] [facility] [address] [id number] [place] [address]- 9239 Jul, [facility] [place] [facility] [address] [id number] [place] [address]- 6552 Jul, [facility] [place] [facility] [address] [id number] [place] [address]- 5006 Apr, [facility] [place] [facility] [address] [id number] [place] [address]- 4116 Dec, [facility] [place] [facility] [address] [id number] [place] [address]- 5309 Nov, [facility] [place] [facility] [address] [id number] [place] [address]- 9172 Nov, [facility] [place] [facility] [address] [id number] [place] [address]- 0888 Nov, [facility] [place] [facility] [address] [id number], [place] [address]- 1234 Oct, [facility] [place] [facility] [address] [id number], [place] [address]- 7848 Sep, [facility] [place] [facility] [address] [id number] [place] [address]- 0094 Sep, [facility] [place] [facility] [address] [id number] [place] [address]- 5278 Sep, [facility] [place] [facility] [address] [id number] [place] [address]- 9888 Sep, [facility] [place] [facility] [address] [id number] [place] [address]- 4843 13 Aug, 2012 [facility] [place] [facility] [address] [id number] [place] [address]- 2830 13 Aug, 2012 [facility] [place] [facility] [address] [id number] [place] [address]- 9216 Jul, [facility] [place] [facility] [address] [id number] [place] [address]- 6918 Jul, [facility] [place] [facility] [address] [id number] [place] [address]- 7808 28 Jun, 2012 [facility] [place] [facility] [address] [id number] [place] 1387 26 Jun, 2012 [facility] [place] [facility] [address] [id number] [place] [address]- 6852 24 Jun, 2012 [facility] [place] [facility] [address] [id number] [place] [address]- 6359 24 Jun, 2012 [facility] [place] [facility] [address] [id number] [place] [address]- 8439 12 Jun, 2012 [facility] [place] [facility] [address] [id number] [place] [address]- 3307 Apr, [facility] [place] [facility] [address] [id number] [place] [address]- 1336 30 Apr, 2012 [facility] [place] [facility] [address] [id number] [place] [address]- 0808 Apr, [facility] [place] [facility] [address] [id number] [place] [address]- 2076 Mar, [facility] [place] [facility] [address] [id number] [place] [address]- 0839 Mar, [facility] [place] [facility] [address] [id number] [place] [address]- 1896 Mar, [facility] [place] [facility] [address] [id number] [place] [address]- 2279 February, [facility] [address] [id number] [place] [address]- 3662 18 Jan, 2012 [facility] [place] [facility] [address] [id number] [place] [address]- 3836 Dec, [facility] [place] [facility] [address] [id number] [place] [address]- 1886 Dec, [facility] [place] [facility] [address] [id number] [place] [address]- 9251 Dec, [facility] [place] [facility] [address] [id number] [place] [address]- 8551 Dec, [facility] [place] [facility] [address] [id number] [place] [address]- 0149 Dec, [facility] [place] [facility] [address] [id number] [place] [address]- 3305 14 Nov, 2011 [facility] [place] [facility] [address] [id number] [place] [address]- 9742 13 Nov, 2011 [facility] [place] [facility] [address] [id number] [place] [address]- 2046 Oct, [facility] [place] [facility] [address] [id number] [place] [address]- 5808 Oct, [facility] [place] [facility] [address] [id number] [place] [address]- 9822 Oct, [facility] [place] [facility] [address] [id number], [place] [address]- 9343 Sep, [facility] [place] [facility] [address] [id number] [place] [address]- 9327 Aug, [facility] [place] [facility] [address] [id number] [place] [address]- 8831 10 Aug, 2011 [facility] [place] [facility] [address] [id number] [place] [address]- 8492 28 Jul, 2011 [facility] [place] [facility] [address] [id number] [place] [address]- 0375 24 Jul, 2011 [facility] [address] [id number] [place] [address]- 6106 19 Jul, 2011 [facility] [place] [facility] [address] [id number] [place] [address]- 2416 13 Jan, 2011 [facility] [place] [facility] [address] [id number] [place] [address] 29 Sep, 2010 [facility] [place] [facility] [address] [id number] [place] [address] 27 Sep, 2010 [facility] [place] [facility] [address] [id number] [place] [address] Sep, [facility] [place] [facility] [address] [id number] [place] [address] Sep, [facility] [address] [id number] [place] [address] 06 Sep, 2010 [facility] [place] [facility] [address] [id number] [place] [address] 16 Aug, 2010 [facility] [place] [facility] [address] [id number] [place] [address] 16 Aug, 2010 [facility] [place] [facility] [address] [id number] [place] [address] 08 Aug, 2010 [facility] [place] [facility] [address] [id number] [place] [address] Jul, [facility] [place] [facility] [address] [id number] [place] [address] Jul, [facility] [place] [facility] [address] [id number] [place] [address] Jul, [facility] [place] [facility] [address] [id number] [place] [address] May, [facility] [place] [facility] [address] [id number] [place] [address] 13 Apr, 2010 [facility] [address] [id number] [address] Dec, [facility] [address] [id number] [address] Sep, [facility] [address] [id number] [address] Sep, [facility] [id number] [address] Aug, [facility] [address] [id number] [address] Aug, [facility] [id number] [address] Jul, [facility] [address] [id number] [address] Mar, IMMUNIZATIONS No Known Immunizations SOCIAL HISTORY Never Assessed REASON FOR VISIT Controlled Med Refill 12/24 PLAN OF CARE VITAL SIGNS MEDICATIONS Medication Instructions Dosage Frequency Start Date End Date Duration Status Lyrica 150 MG Orally Three times a day 1 capsule 8h 28 days Active Clonazepam 0.5 MG Orally TID PRN 1 tablet Dec, 28 days Active MS Contin 15 mg Orally every 12 hrs as needed must last 28 days 1 tablet Jan, February, 28 days Active Hydrocodone-Acetaminophen 5-325 MG Orally four times a day as needed for pain. Must last 28 days. 1 tablet Jan, February, 28 days Active RESULTS No Results PROCEDURES [...]
--- OUTSIDE RECORDS SUMMARY | 2018-10-08 19:53 | XMS REPORT ---
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 190971142 Problem Edema of both feet R60.0 Active 945967324 Problem Tobacco abuse Z72.0 Active 17529442 Problem Chronic migraine G43.709 Active 51926637 Problem Mixed hyperlipidemia E78.2 Active 885928151 Problem Spinal stenosis, lumbar region M48.06 Active 01073976 Problem Anxiety F41.9 Active 39166462 Problem Radiculopathy of lumbar region M54.16 Active 702733670 Problem Bulging lumbar disc M51.26 Active 700094662 Problem Asthma J45.909 Active 774914450 Problem Essential hypertension I10 Active 14669990 ALLERGIES No Information ENCOUNTERS Encounter Location Date Diagnosis [facility], [place] [id number], [place] [address] Apr, [facility], [place] [address], [place] [address] Mar, HSV (herpes simplex virus) infection B00.9 ; Anxiety F41.9 and Chronic pain G89.29 [facility], [place] [id number], [place] [address] Mar, [facility], [place] [id number] [place] [address] 34199- 1507 Mar, Chronic pain G89.29 [place] [id number] [place] [address] 16776- 3109 February, Chronic pain G89.29 [place] [id number] [place] [address] 62555- 7788 Jan, Chronic pain G89.29 [place] [address] 15384- 7594 Jan, 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 [place] [id number] [place] [address] 39231- 8983 Jan, Encounter for Depo-Provera contraception Z30.42 [place] [id number] [place] [address] 18783- 7658 Jan, [place] [address] 09456- 4162 Jan, Chronic pain G89.29 and Anxiety F41.9 [place] [id number] [place] [address] 63696- 3445 Jan, [place] [id number] [place] [address] 78162- 1321 Dec, [place] [id number] [place] [address] 34235- 0771 Dec, Gastroesophageal reflux disease without esophagitis K21.9 and Anxiety F41.9 [place] [id number] [place] [address] 17197- 8883 Dec, Essential hypertension I10 ; Mixed hyperlipidemia E78.2 ; Type 2 diabetes mellitus with diabetic neuropathy, unspecified E11.40 ; residential 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 Z79.4 ; Chronic pain G89.29 ; HSV (herpes simplex virus) infection B00.9 ; Anxiety F41.9 and Gastroesophageal reflux disease without esophagitis K21.9 [place] [id number] [place] [address] 11980- 0808 Dec, Chronic pain G89.29 and Chronic migraine G43.709 [place] [id number] [place] [address] 80255- 7255 Nov, [place] [address] 16682- 4652 Nov, Essential hypertension I10 and Chronic pain G89.29 [place] [address] 89173- 2586 Nov, Chronic pain G89.29 ; Essential hypertension I10 and Type 2 diabetes mellitus without complication E11.[address] 80149- 9358 Oct, Chronic pain G89.29 [place] [address] 99252- 2380 Oct, [place] [address] 92312- 0849 Sep, Type 2 diabetes mellitus without complication E11.9 ; Essential hypertension I10 ; residential (current) use of insulin Z79.4 ; Chronic migraine G43.709 ; Chronic pain G89.29 and Acute non-recurrent maxillary sinusitis J01.00 [address] [id number] [place] [address] 68447- 0262 Sep, Encounter for Depo-Provera contraception Z30.42 [place] [id number] [place] [address] 27661- 4560 Sep, Chronic pain G89.29 and Radiculopathy of lumbar region M54.[address] 48951- 9069 Sep, [place] [address] 11637- 6272 Sep, [place] [address] 00304- 2298 Aug, Type 2 diabetes mellitus without complication E11.9 [facility], [place] [address] [facility] [id number], [place] [address] 8[address] Aug, [facility], [place] [id number] [place] [address] 30728 2546 Aug, Radiculopathy of lumbar region M54.16 and Chronic pain G89.29 [facility], [place] [id number], [place] [address] 8996 Aug, Type 2 diabetes mellitus without complication E11.9 [facility], [place] [address] [facility] [id number], [place] [address] 8344 Aug, Type 2 diabetes mellitus without complication E11.9 [facility], [place] [id number] [place] [address] 12722- 6643 Jul, Type 2 diabetes mellitus without complication E11.9 [facility], [place] [address] [place] [address] 45601- 6973 Jul, [facility], [place] [address] [facility] [id number] [place] [address] 65395- 7543 Jul, Chronic pain G89.29 [facility], [place] [id number], [place] [address] 0006 Jul, [facility], [place] [id number], [place] [address]- 2539 Jul, [facility], [place] [address], [place] [address] 2541 Jul, Type 2 diabetes mellitus without complication E11.9 [facility], [place] [address] [facility] [id number], [place] [address] 2546 Jul, [facility], [place] [address], [place] [address]- 0606 Jul, Type 2 diabetes mellitus without complication E11.9 [facility], [place] [address] [facility] [id number], [place] [address]- 2546 Jul, [facility], [place] [id number] [place] [address] 12432- 4893 Jul, [place] [address] 18397- 3437 Jul, [place] [id number] [place] [address] 23729- 4304 Jun, Type 2 diabetes mellitus without complication E11.9 [place] [address] 65753- 4552 Jun, Chronic migraine G43.709 ; Type 2 diabetes mellitus without complication E11.9 ; Calculus of right kidney N20.0 ; Yeast dermatitis B37.2 and HSV (herpes simplex virus) infection B00.9 [place] [id number] [place] [address] 26658- 4687 Jun, Type 2 diabetes mellitus without complication E11.9 [place] [address] 60029- 3527 Jun, [place] [id number] [place] [address] 36799- 0155 Jun, Radiculopathy of lumbar region M54.16 and Chronic pain G89.29 [place] [id number] [place] [address] 98726- 7919 Jun, Encounter for Depo-Provera contraception Z30.42 [place] [address] [place] [address] 16665- 1803 Jun, Type 2 diabetes mellitus without complication E11.9 [place] [id number] [place] [address] 68494- 6904 Jun, [facility] [id number] [place] [address] 96630 -2814 May, Acute nasopharyngitis (common cold) J00 [place] [id number] [place] [address] 93236- 8394 May, Chronic pain G89.29 [place] [id number] [place] [address] 52340- 1261 May, Headache following lumbar puncture G97.1 [place] [id number] [place] [address] 10197- 0931 May, Radiculopathy of lumbar region M54.16 [place] [id number] [place] [address] 75368- 4348 Apr, [place] [id number] [place] [address] 25669- 8817 Apr, Type 2 diabetes mellitus without complication E11.9 ; Chronic pain G89.29 ; Essential hypertension I10 ; Radiculopathy of lumbar region M54.16 ; Spinal stenosis, lumbar region M48.06 ; Gastroesophageal reflux disease without esophagitis K21.9 ; HSV (herpes simplex virus) infection B00.9 ; Mixed hyperlipidemia E78.2 ; Anxiety F41.9 and Asthma J45.909 [place] [id number] [place] [address] 88515- 4159 Apr, Encounter for Depo-Provera contraception Z30.[address] 06679- 4321 Apr, Chronic pain G89.29 and Anxiety F41.9 [place] [id number] [place] [address] 34347- 7691 Mar, [place] [id number] [place] [address] 80510- 2086 Mar, [place] [id number] [place] [address] 07401- 7865 Mar, Mixed hyperlipidemia E78.2 [place] [id number] [place] [address] 60677- 6603 Mar, Type 2 diabetes mellitus without complication E11.9 ; Chronic pain G89.29 ; Essential hypertension I10 ; Radiculopathy of lumbar region M54.16 ; Spinal stenosis, lumbar region M48.06 ; Gastroesophageal reflux disease without esophagitis K21.9 ; HSV (herpes simplex virus) infection B00.9 ; Mixed hyperlipidemia E78.2 and Anxiety F41.9 [facility], [place] [id number] [place] [address] 73612- 4159 Mar, [facility], [place] [id number] [place] [address] 48471- 7193 19 Mar, 2017 [facility], [place] [id number] [place] [address] 88670- 4250 Mar, [facility], [place] [id number] [place] [address] 65757- 9132 February, Chronic pain G89.29 [facility], [place] [id number] [place] [address] 84876- 1134 February, [facility], [place] [id number] [place] [address] 88311- 9567 Jan, Chronic pain G89.29 [facility], [place] [id number] [place] [address] 25407- 4404 Jan, Type 2 diabetes mellitus without complication E11.9 [facility], [place] [id number] [place] [address] 54203- 9197 Jan, [facility], [place] [id number] [place] [address] 52754- 2844 Jan, [place] [id number] [place] [address] 88235- 2452 Jan, [place] [address] [place] [address] 64561- 0653 18 Jan, 2017 Type 2 diabetes mellitus without complication [...] J01.00 and Encounter for Depo-Provera contraception Z30.42 [place] [id number] [place] [address] 95595- 0989 28 Dec, 2016 Chronic pain G89.29 [place] [id number] [place] [address] 19442- 4298 Dec, Abnormal ankle brachial index (BERNARDINO) R68.89 [place] [id number] [place] [address] 75806- 5553 Dec, [place] [id number] [place] [address] 02439- 2364 Dec, Routine gynecological examination Z01.419 ; Chronic [...] virus) infection B00.9 and Allergic rhinitis 477.9 [place] [id number] [place] [address] 88663- 9520 28 Nov, 2016 Chronic pain G89.29 [place] [id number] [place] [address] 80321- 1299 02 Nov, 2016 Chronic pain G89.29 ; [...] mucoid otitis media of both ears H65.113 [place] [address] [place] [address] 55929- 9937 Oct, [place] [address] [place] [address] 66576- 6279 Oct, Chronic pain G89.29 [place] [address] 60294- 3825 Oct, Chronic pain G89.29 [place] [address] [place] [address] 13897- 3310 Sep, Chronic pain G89.29 ; Type 2 diabetes mellitus without complication E11.9 ; Essential hypertension I10 ; Radiculopathy of lumbar region M54.16 ; Spinal stenosis, lumbar region M48.06 ; Gastroesophageal reflux disease without esophagitis K21.9 ; Encounter for surveillance of injectable contraceptive Z30.42 ; Bilateral cold feet R20.9 ; Pain of left foot M79.672 and Pain in right foot M79.671 [place] [address] [place] [address] 50950- 4909 Sep, [place] [address] 50205- 8491 Aug, [place] [address] [place] [address] 66394- 8773 Aug, [place] [address] [place] [address] 09419- 9166 Aug, Chronic pain G89.29 ; Type 2 diabetes mellitus without complication E11.9 ; Essential hypertension I10 ; Rash and nonspecific skin eruption R21 and Upper respiratory infection, acute J06.9 [place] [address] [place] [address] 49240- 4414 Aug, [place] [address] [place] [address] 24490- 5556 Aug, [place] [address] 99663- 2493 Jul, [place] [address] [place] [address] 46716- 0486 Jul, Dysuria R30.0 ; Encounter for Depo-Provera contraception Z30.42 ; Herpes simplex B00.9 ; Nausea & vomiting R11.2 and Asthma J45.909 [facility], [place] [address] 10618- 3776 Jun, Dysuria R30.0 [facility], [place] [id number] [place] [address] 63172- 0976 19 Jun, 2016 Dysuria R30.0 [facility], [place] [address] 35078- 4236 15 Jun, 2016 [facility], [place] [address] 20628- 6896 13 Jun, 2016 [place] [address] 77807- 3694 May, [place] [address] 95421- 1314 May, [facility], [place] [address] 39348- 2478 May, Chronic pain G89.29 ; Essential hypertension I10 ; Type 2 diabetes mellitus without complication E11.9 ; Edema of both feet R60.0 and Rash and nonspecific skin eruption R21 [place] [address] [place] [address] 56089- 0147 Apr, [place] [address] [place] [address] 01105- 2864 Mar, Carpal tunnel syndrome, left upper limb G56.02 and Carpal tunnel syndrome, right upper limb G56.01 [place] [address] [place] [address] 08537- 6815 Mar, [place] [address] 09034- 7883 Mar, Encounter for Depo-Provera contraception Z30.42 [place] [address] 89052- 7315 February, [place] [address] [place] [address] 68163- 3984 February, [place] [address] 17602- 0744 February, Chronic pain G89.29 ; Essential hypertension I10 ; Type 2 diabetes mellitus without complication E11.9 ; HSV (herpes simplex virus) infection B00.9 ; Anxiety F41.9 ; Hypersomnia G47.10 ; Tobacco abuse Z72.0 ; Hand pain, left M79.642 ; Hand pain, right M79.641 ; Left foot pain M79.672 and Heart palpitations R00.2 [place] [address] 97909- 4274 Jan, [place] [address] 52299- 6491 Jan, [place] [address] 25662- 7128 Jan, [place] [address] 82060- 2635 Jan, [place] [address] 99744- 1891 Jan, Upper respiratory infection J06.9 and Type 2 diabetes mellitus without complication E11.9 [place] [address] [place] [address] 78225- 4149 Dec, [place] [address] 98012- 2872 Dec, Chronic pain G89.29 ; Essential hypertension I10 ; Type 2 diabetes mellitus without complication E11.9 ; HSV (herpes simplex virus) infection B00.9 ; Anxiety F41.9 ; Upper respiratory infection J06.9 ; Hypersomnia G47.10 and Tobacco abuse Z72.0 [place] [address] [place] [address] 69384- 5462 Dec, Encounter for Depo-Provera contraception Z30.42 [place] [address] [place] [address] 80198- 1097 Dec, [place] [address] 48034- 0306 Dec, Chronic pain G89.29 ; Sinusitis J32.9 ; Snoring R06.83 and Daytime hypersomnia G47.[address] 40837- 1842 Nov, HSV (herpes simplex virus) infection B00.9 ; Encounter for Papanicolaou smear for cervical cancer screening Z12.4 ; Screening for STD sexually transmitted disease Z11.3 and Bartholin's gland cyst N75.0 [place] [address] 34751- 9967 Nov, [address] 05123- 2584 Nov, [address] 30929- 2881 Nov, Essential hypertension I10 ; Type 2 diabetes mellitus without complication E11.9 ; HSV (herpes simplex virus) infection B00.9 ; Spinal stenosis, lumbar region M48.06 and Vaginal yeast infection B37.3 [place] [id number] [place] [address] 49836- 6038 Nov, [place] [address] [place] [address] 89820- 7936 Nov, [place] [address] [place] [address] 03439- 1919 Oct, [address] 54480- 4630 Oct, HSV (herpes simplex virus) infection B00.9 ; Yeast infection B37.9 ; Change in bowel habit R19.4 ; Nausea & vomiting R11.2 and Gastroesophageal reflux disease without esophagitis K21.9 [facility] [place] [facility] [address] 07718- 3198 Oct, [address] 74293- 4088 Oct, Type 2 diabetes mellitus without complication E11.9 ; Essential hypertension I10 and Acute maxillary sinusitis, recurrence not specified J01.[address] 18512- 3556 Oct, [place] [address] 36790- 0028 Oct, [address] 60707- 9503 Oct, Exposure to head lice Z20.7 ; Blood glucose abnormal R73.09 ; Boil of buttock L02.32 and Type 2 diabetes mellitus without complication E11.[address] 75266- 1394 Oct, [address] 06505- 1639 Sep, [address] 88421- 9122 Sep, [address] 89024- 7661 Aug, Encounter for Depo-Provera contraception Z30.[address] 31836- 4976 Aug, Anxiety F41.9 ; Spinal stenosis, lumbar region M48.06 ; Radiculopathy of lumbar region M54.16 ; Asthma J45.909 ; GERD (gastroesophageal reflux disease) K21.9 ; Essential hypertension I10 and Long-term use of high- risk medication Z79.[address] 74038- 9594 Jul, [place] [address] [place] [address]- 6716 Jun, Hemorrhoid 455.6 [place] [address] 59525- 1077 Jun, [place] [address] 36225- 4145 Jun, Anxiety 300.00 ; Asthma 493.90 ; Hyperhidrosis 705.21 ; Chest discomfort 786.59 and Upper respiratory infection 465.9 [place] [address] 54592- 2829 May, Encounter for Depo-Provera contraception V25.[address] 06384- 5352 May, [address] 89093- 4463 May, [address] 50197- 3938 May, Spinal stenosis of lumbar region with radiculopathy 724.02 ; Bulging of intervertebral disc between L4 and L5 722.10 ; GERD ( gastroesophageal reflux disease) 530.81 ; Chronic pain 338.29 ; Declining mobility 799.89 and Epigastric pain 789.[address] 26702- 2757 Apr, [address] 33559- 0091 Apr, Nausea 787.02 and Heart burn 787.[address] 81593- 9513 Mar, Lumbago 724.2 ; Vitamin D deficiency 268.9 ; Anxiety 300.00 ; Allergic rhinitis 477.9 and Contraceptive surveillance V25.[address] 98794- 2240 February, 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 ; Chronic pain 338.29 and Vaginal discharge 623.5 [facility] [address] [facility] [id number]- 9162 February, [facility] [address] [facility] [id number]- 8441 February, [facility] [address] [facility] [id number], [place] [address]- 6733 Jan, [facility] [address] [facility] [id number], [place] [address]- 9019 Jan, [facility] [address] [facility] [id number], [place] [address]- 0786 Dec, [facility] [address] [facility] [id number], [place] [address]- 5583 Dec, [facility] [address] [facility] [id number], [place] [address]- 1369 Dec, [facility] [address] [facility] [id number], [place] [address]- 8018 Dec, [facility] [address] [facility] [id number], [place] [address]- 6837 Dec, [facility] [address] [facility] [id number], [place] [address]- 5742 Dec, [facility] [address] [facility] [id number], [place] [address]- 7124 Dec, [facility] [address] [facility] [id number], [place] [address]- 9984 Dec, [facility] [address] [facility] [id number], [place] [address]- 1155 Dec, [facility] [address] [facility] [id number], [place] [address]- 2532 Dec, [facility] [address] [facility] [id number]- 8769 Dec, [facility] [place] [facility] [address] [id number] [place] [address]- 9387 Dec, 2014 [facility] [place] [facility] [address] [id number] [place] [address]- 8096 Nov, 2014 [facility] [place] [facility] [address] [id number] [place] [address]- 3146 Nov, 2014 [facility] [place] [facility] [address] [id number] [place] [address]- 2541 24 Nov, 2014 [facility] [place] [facility] [address] [id number] [place] [address]- 2540 24 Nov, 2014 [facility] [place] [facility] [address] [id number] [place] [address]- 2579 23 Nov, 2014 [facility] [place] [facility] [address] [id number] [place] [address]- 7602 23 Nov, 2014 [facility] [place] [facility] [address] [id number] [place] [address]- 9472 16 Nov, 2014 [facility] [place] [facility] [address] [id number] [place] [address] 16 Nov, 2014 [facility] [place] [facility] [address] [facility] [id number] [place] [address] 13 Nov, 2014 [facility] [place] [facility] [address] [id number] [place] [address] 13 Nov, 2014 [facility] [place] [facility] [address] [id number] [place] [address] 13 Nov, 2014 [facility] [place] [facility] [address] [id number] [place] [address] 13 Nov, 2014 [facility] [place] [facility] [address] [id number] [place] [address] 13 Nov, 2014 [facility] [place] [facility] [address] [facility] [id number] [place] [address]- [address] 13 Nov, 2014 [facility] [place] [facility] [address] [id number] [place] [address] Nov, 2014 [facility] [place] [facility] [address] [id number] [place] [address]- [address] Nov, 2014 [facility] [place] [facility] [address] [id number] [place] [address] Nov, 2014 [facility] [place] [facility] [address] [id number] [place] [address] Nov, 2014 [facility] [place] [facility] [address] [id number] [place] [address]- [address] Nov, 2014 [facility] [place] [facility] [address] [id number] [place] [address] Nov, 2014 [facility] [place] [facility] [address] [facility] [id number] [place] [address] Nov, 2014 [facility] [place] [facility] [address] [facility] [id number] [place] [address]- [address] Nov, 2014 [facility] [place] [facility] [address] [facility] [id number] [place] [address]- [address] Nov, [facility] [place] [facility] [address] [facility] [id number] [place] [address] Oct, [facility] [place] [facility] [address] [facility] [id number] [place] [address] Oct, [facility] [place] [facility] [address] [id number], [place] [address] Oct, [facility] [place] [facility] [address] [id number] [place] [address] 8523 Oct, [facility] [place] [facility] [address] [facility] [id number] [place] [address] 1763 Oct, [facility] [place] [facility] [address] [facility] [id number] [place] [address]- 4288 Oct, [facility] [place] [facility] [address] [facility] [id number], [place] [address] Oct, [facility] [place] [facility] [address] [id number] [place] [address] 4167 Oct, [facility] [place] [facility] [address] [id number] [place] [address]- 4616 Oct, [facility] [place] [facility] [address] [id number] [place] [address]- 7699 Oct, [facility] [place] [facility] [address] [id number] [place] [address]- 6992 Oct, [facility] [place] [facility] [address] [id number] [place] [address]- 2596 Oct, [facility] [place] [facility] [address] [id number] [place] [address]- 5146 Oct, [facility] [place] [facility] [address] [id number] [place] [address]- 4164 Oct, [facility] [place] [facility] [address] [id number] [place] [address]- 0511 Oct, [facility] [place] [facility] [address] [id number] [place] [address]- 9470 Oct, [facility] [place] [facility] [address] [id number] [place] [address]- 1620 Oct, [facility] [place] [facility] [address] [id number] [place] [address]- 6324 Oct, [facility] [place] [facility] [address] [id number] [place] [address]- 5614 Oct, [facility] [place] [facility] [address] [id number] [place] [address]- 2995 Oct, [facility] [place] [facility] [address] [id number] [place] [address]- 6084 Oct, [facility] [place] [facility] [address] [id number] [place] [address]- 5345 Sep, [facility] [place] [facility] [address] [id number] [place] [address]- 6401 29 Sep, 2014 [facility] [place] [facility] [address] [id number] [place] [address]- 0146 18 Sep, 2014 [facility] [place] [facility] [address] [id number] [place] [address]- 1046 18 Sep, 2014 [facility] [place] [facility] [address] [id number] [place] [address]- 5076 17 Sep, 2014 [facility] [place] [facility] [address] [id number] [place] [address]- 2384 17 Sep, 2014 [facility] [place] [facility] [address] [id number] [place] [address]- 7642 15 Sep, 2014 [facility] [place] [facility] [address] [id number] [place] [address]- 8620 15 Sep, 2014 [facility] [place] [facility] [address] [id number] [place] [address]- 3098 12 Sep, 2014 [facility] [place] [facility] [address] [id number] [place] [address]- 9915 12 Sep, 2014 [facility] [place] [facility] [address] [id number] [place] [address]- 1196 Sep, [facility] [place] [facility] [address] [id number] [place] [address]- 2508 11 Sep, 2014 [facility] [place] [facility] [address] [id number] [place] [address]- 2782 Sep, [facility] [place] [facility] [address] [id number] [place] [address]- 2895 Sep, [facility] [place] [facility] [address] [id number] [place] [address]- 1986 Sep, [facility] [place] [facility] [address] [id number] [place] [address]- 7486 Sep, [facility] [place] [facility] [address] [id number] [place] [address]- 9885 Sep, [facility] [place] [facility] [address] [id number] [place] [address]- 6616 Sep, [facility] [place] [facility] [address] [id number] [place] [address]- 2333 Sep, [facility] [place] [facility] [address] [id number] [place] [address]- 3139 Sep, [facility] [place] [facility] [address] [id number] [place] [address]- 3850 Aug, [facility] [place] [facility] [address] [id number] [place] [address]- 6623 Aug, [facility] [place] [facility] [address] [id number] [place] [address]- 2920 Aug, [facility] [place] [facility] [address] [id number] [place] [address]- 4543 Aug, [facility] [place] [facility] [address] [id number] [place] [address]- 9956 Aug, [facility] [place] [facility] [address] [id number] [place] [address]- 8915 Aug, [facility] [place] [facility] [address] [id number] [place] [address]- 5485 Aug, [facility] [place] [facility] [address] [id number], [place] [address]- 0379 Aug, [facility] [place] [facility] [address] [id number], [place] [address]- 0642 Aug, [facility] [place] [facility] [address] [id number] [place] [address]- 7876 Jul, [facility] [place] [facility] [address] [id number] [place] [address]- 9619 Jul, [facility] [place] [facility] [address] [id number] [place] [address]- 0813 Jul, [facility] [place] [facility] [address] [id number] [place] [address]- 9801 23 Jul, 2013 [facility] [place] [facility] [address] [id number] [place] [address]- 2343 16 Jul, 2013 [facility] [place] [facility] [address] [id number] [place] [address]- 1912 16 Jul, 2013 [facility] [place] [facility] [address] [id number] [place] [address]- 9589 13 Jul, 2013 [facility] [place] [facility] [address] [id number] [place] [address]- 6239 13 Jul, 2013 [facility] [place] [facility] [address] [id number] [place] [address]- 8946 10 Jul, 2013 [facility] [place] [facility] [address] [id number] [place] [address]- 4671 10 Jul, 2013 [facility] [place] [facility] [address] [id number] [place] [address]- 5408 10 Jul, 2013 [facility] [place] [facility] [address] [id number] [place] [address]- 2249 10 Jul, 2013 [facility] [place] [facility] [address] [id number] [place] [address]- 2810 07 Jul, 2014 [facility] [place] [facility] [address] [id number] [place] [address]- 2423 07 Jul, 2014 [facility] [place] [facility] [address] [id number] [place] [address]- 3992 30 Jun, 2013 [facility] [place] [facility] [address] [id number] [place] [address]- 2540 30 Sep, 2013 [facility] [place] [facility] [address] [id number] [place] [address]- 8497 25 Jun, 2013 [facility] [place] [facility] [address] [id number] [place] [address]- 0297 25 Jun, 2013 [facility] [place] [facility] [address] [id number] [place] [address]- 3595 25 Jun, 2013 [facility] [place] [facility] [address] [id number] [place] [address]- 2547 25 Sep, 2013 [facility] [place] [facility] [address] [id number] [place] [address] 2546 24 Sep, 2013 [facility] [place] [facility] [address] [id number] [place] [address] 2543 24 Sep, 2013 [facility] [place] [facility] [address] [id number] [place] [address] 2545 22 Sep, 2013 [facility] [place] [facility] [address] [id number] [place] [address] 2547 22 Sep, 2013 [facility] [place] [facility] [address] [id number] [place] [address]- 6911 17 Sep, 2013 [facility] [place] [facility] [address] [id number] [place] [address]- 7031 17 Jun, 2013 [facility] [place] [facility] [address] [id number] [place] [address]- 8665 16 Sep, 2013 [facility] [place] [facility] [address] [id number] [place] [address]- 2168 16 Sep, 2013 [facility] [place] [facility] [address] [id number] [place] [address]- 6471 15 Sep, 2013 [facility] [place] [facility] [address] [id number] [place] [address] 2543 15 Jun, 2013 [facility] [place] [facility] [address] [id number] [place] [address]- 2549 12 Sep, 2013 [facility] [place] [facility] [address] [id number] [place] [address] 2541 12 Sep, 2013 [facility] [place] [facility] [address] [id number] [place] [address] 2547 11 Sep, 2013 [facility] [place] [facility] [address] [id number] [place] [address]- 2541 11 Sep, 2013 [facility] [place] [facility] [address] [id number] [place] [address]- 8243 Jun, [facility] [place] [facility] [address] [id number] [place] [address]- 1963 Jun, [facility] [place] [facility] [address] [id number] [place] [address]- 1712 Jun, [facility] [place] [facility] [address] [id number] [place] [address]- 2415 Jun, [facility] [place] [facility] [address] [id number] [place] [address]- 4447 Jun, [facility] [place] [facility] [address] [id number] [place] [address]- 9045 Jun, [facility] [place] [facility] [address] [id number] [place] [address]- 3280 May, [facility] [place] [facility] [address] [id number] [place] [address]- 5975 May, [facility] [place] [facility] [address] [id number] [place] [address]- 0829 May, [facility] [place] [facility] [address] [id number] [place] [address]- 7351 May, [facility] [place] [facility] [address] [id number] [place] [address]- 2413 May, [facility] [place] [facility] [address] [id number] [place] [address]- 6705 May, [facility] [place] [facility] [address] [id number] [place] [address]- 4059 May, [facility] [place] [facility] [address] [id number] [place] [address]- 9975 May, [facility] [place] [facility] [address] [id number] [place] [address]- 0571 May, [facility] [place] [facility] [address] [id number] [place] [address]- 2175 May, [facility] [place] [facility] [address] [id number] [place] [address]- 3571 May, [facility] [address] [id number] [place] [address]- 3867 May, [facility] [place] [facility] [address] [id number] [place] [address] May, [facility] [place] [facility] [address] [id number] [place] [address]- 2995 Apr, [facility] [place] [facility] [address] [id number] [place] [address]- 3914 Apr, [facility] [place] [facility] [address] [id number] [place] [address]- 3756 Apr, [facility] [place] [facility] [address] [id number] [place] [address]- 2211 Apr, [facility] [place] [facility] [address] [id number] [place] [address]- 0671 Apr, [facility] [place] [facility] [address] [id number] [place] [address]- 6453 Mar, [facility] [place] [facility] [address] [id number] [place] [address]- 5781 Mar, [facility] [place] [facility] [address] [id number] [place] [address]- 4399 Mar, [facility] [place] [facility] [address] [id number] [place] [address]- 5535 February, [facility] [place] [facility] [address] [id number] [place] [address]- 5062 February, [facility] [place] [facility] [address] [id number] [place] [address] February, [facility] [place] [facility] [address] [id number] [place] [address]- 3428 February, [facility] [place] [facility] [address] [id number] [place] [address]- 1361 February, [facility] [place] [facility] [address] [id number] [place] [address]- 7198 February, [facility] [place] [facility] [address] [id number] [place] [address]- 0735 February, [facility] [place] [facility] [address] [id number] [place] [address]- 5975 February, [facility] [place] [facility] [address] [id number] [place] [address]- 0262 February, [facility] [place] [facility] [address] [id number] [place] [address]- 5726 Jan, [facility] [place] [facility] [address] [id number] [place] [address]- 5373 Jan, [facility] [place] [facility] [address] [id number] [place] [address]- 9004 Jan, [facility] [place] [facility] [address] [id number] [place] [address]- 6725 Jan, [facility] [place] [facility] [address] [id number] [place] [address]- 7676 Jan, [facility] [place] [facility] [address] [id number] [place] [address]- 9808 Dec, [facility] [place] [facility] [address] [id number] [place] [address]- 2315 Dec, [facility] [place] [facility] [address] [id number], [place] [address]- 4870 Dec, [facility] [place] [facility] [address] [id number] [place] [address]- 2013 Dec, [facility] [place] [facility] [address] [id number] [place] [address]- 7597 Dec, [facility] [place] [facility] [address] [id number] [place] [address]15 Nov, [facility] [place] [facility] [address] [id number], [place] [address]- 6892 Nov, [facility] [place] [facility] [address] [id number] [place] [address]- 7932 Nov, [facility] [place] [facility] [address] [id number] [place] [address]- 0521 Nov, [facility] [place] [facility] [address] [id number] [place] [address]- 7551 Oct, [facility] [place] [facility] [address] [id number] [place] [address]- 4934 Oct, [facility] [place] [facility] [address] [id number] [place] [address]- 7667 Oct, [facility] [place] [facility] [address] [id number] [place] [address]- 2524 Oct, [facility] [place] [facility] [address] [id number] [place] [address]- 9600 Oct, [facility] [place] [facility] [address] [id number] [place] [address]- 7150 Oct, [facility] [place] [facility] [address] [id number] [place] [address]- 2871 Oct, [facility] [place] [facility] [address] [facility] [id number] [place] [address]- 9115 Oct, [facility] [place] [facility] [address] [id number] [place] [address]- 9022 Oct, [facility] [place] [facility] [address] [id number] [place] [address]- 0994 Oct, [facility] [place] [facility] [address] [id number] [place] [address]- 8803 Aug, [facility] [place] [facility] [address] [id number] [place] [address]- 5193 Aug, [facility] [place] [facility] [address] [id number] [place] [address]- 1259 Jul, [facility] [place] [facility] [address] [id number] [place] [address]- 3690 Jul, [facility] [address] [id number] [place] [address]- 1211 Jul, [facility] [place] [facility] [address] [id number] [place] [address]- 2995 Jul, [facility] [place] [facility] [address] [id number] [place] [address]- 0075 Jul, [facility] [place] [facility] [address] [id number] [place] [address]- 3879 Jul, [facility] [place] [facility] [address] [id number] [place] [address]- 2800 Apr, [facility] [address] [id number] [place] [address]- 3238 Dec, [facility] [place] [facility] [address] [id number] [place] [address]- 9689 Nov, [facility] [place] [facility] [address] [id number] [place] [address]- 1531 Nov, [facility] [address] [facility] [id number] [place] [address]- 2543 Nov, [facility] [place] [facility] [address] [id number] [place] [address]- 3423 Oct, [facility] [place] [facility] [address] [id number] [place] [address]- 9006 Sep, [facility] [place] [facility] [address] [id number] [place] [address]- 5826 Sep, [facility] [place] [facility] [address] [id number] [place] [address]- 9558 Sep, [facility] [place] [facility] [address] [id number] [place] [address]- 7200 Sep, [facility] [place] [facility] [address] [id number] [place] [address]- 9490 Aug, [facility] [place] [facility] [address] [id number] [place] [address]- 0262 Aug, [facility] [place] [facility] [address] [id number] [place] [address]- 6015 Jul, [facility] [place] [facility] [address] [id number] [place] [address]- 1615 Jul, [facility] [place] [facility] [address] [id number] [place] [address]- 3661 28 Jun, 2012 [facility] [place] [facility] [address] [id number] [place] [address]- 1510 26 Jun, 2012 [facility] [place] [facility] [address] [id number] [place] [address]- 5591 24 Jun, 2012 [facility] [place] [facility] [address] [id number] [place] [address]- 5497 24 Jun, 2012 [facility] [place] [facility] [address] [id number] [place] [address]- 0955 Jun, [facility] [place] [facility] [address] [id number] [place] [address]- 6895 Apr, [facility] [place] [facility] [address] [id number] [place] [address]- 0437 Apr, [facility] [place] [facility] [address] [id number] [place] [address]- 1722 Apr, [facility] [place] [facility] [address] [id number] [place] [address]- 0998 Mar, [facility] [place] [facility] [address] [id number] [place] [address]- 1942 Mar, [facility] [place] [facility] [address] [id number] [place] [address]- 0616 Mar, [facility] [place] [facility] [address] [id number] [place] [address]- 3374 February, [facility] [place] [facility] [address] [id number] [place] [address]- 1966 18 Jan, 2012 [facility] [address] [id number] [place] [address]- 6645 21 Dec, 2011 [facility] [place] [facility] [address] [id number] [place] [address] Dec, [facility] [place] [facility] [address] [id number] [place] [address] Dec, [facility] [place] [facility] [address] [id number] [place] [address] 19 Dec, 2011 [facility] [address] [id number] [place] [address] Dec, [facility] [place] [facility] [address] [id number] [place] [address] 14 Nov, 2011 [facility] [place] [facility] [address] [id number] [place] [address] 13 Nov, 2011 [facility] [address] [id number] [place] [address] Oct, [facility] [address] [id number] [place] [address] Oct, [facility] [address] [id number] [place] [address] Oct, [facility] [place] [facility] [address] [id number] [place] [address] Sep, [facility] [place] [facility] [address] [id number] [place] [address] Aug, [facility] [place] [facility] [address] [id number] [place] [address] Aug, [facility] [place] [facility] [address] [id number] [place] [address] Jul, [facility] [place] [facility] [address] [id number] [place] [address] 24 Jul, 2011 [facility] [place] [facility] [address] [id number] [place] [address] 19 Jul, 2011 [facility] [place] [facility] [address] [id number] [place] [address] Jan, [facility] [place] [facility] [address] [id number] [place] [address] 29 Sep, 2010 [facility] [place] [facility] [address] [id number] [place] [address] 27 Sep, 2010 [facility] [place] [facility] [address] [id number] [place] [address] Sep, [facility] [place] [facility] [address] [id number] [place] [address] Sep, [facility] [place] [facility] [address] [id number] [place] [address] Sep, [facility] [place] [facility] [address] [id number] [place] [address] Aug, [facility] [place] [facility] [address] [id number] [place] [address] 16 Aug, 2010 [facility] [place] [facility] [address] [id number], [place] [address] Aug, [facility] [place] [facility] [address] [id number], [place] [address] Jul, [facility] [place] [facility] [address] [id number], [place] [address] Jul, [facility] [place] [facility] [address] [id number] [place] [address] Jul, [facility] [place] [facility] [address] [id number], [place] [address] May, [facility] [place] [facility] [address] [id number] [place] [address] Apr, [facility] [place] [facility] [address] [facility] [id number] [place] [address] 18 Dec, 2009 [facility] [place] [address] [id number], [place] [address] Sep, [facility] [place] [address] [id number], [place] [address] Sep, [facility] [place] [address] [id number], [place] [address] Aug, [facility] [place] [id number] [address] Aug, [facility] [place] [id number] [address] Jul, [facility] [place] [address] [id number], [place] [address] 10 Mar, 2009 IMMUNIZATIONS No Known Immunizations SOCIAL HISTORY Never Assessed REASON FOR VISIT requesting a returned call PLAN OF CARE VITAL SIGNS MEDICATIONS [...]
--- OUTSIDE RECORDS SUMMARY | 2018-10-08 19:54 | XMS REPORT ---
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 108489960 Problem Edema of both feet R60.0 Active 632118611 Problem Tobacco abuse Z72.0 Active 13307260 Problem Chronic migraine G43.709 Active 83248579 Problem Mixed hyperlipidemia E78.2 Active 697384047 Problem Spinal stenosis, lumbar region M48.06 Active 06559940 Problem Anxiety F41.9 Active 60802641 Problem Radiculopathy of lumbar region M54.16 Active 096246377 Problem Bulging lumbar disc M51.26 Active 447328212 Problem Asthma J45.909 Active 543441920 Problem Essential hypertension I10 Active 85067128 ALLERGIES No Information ENCOUNTERS Encounter Location Date Diagnosis [place] [address] [place] [address] 29828- 4083 Mar, HSV (herpes simplex virus) infection B00.9 ; Anxiety F41.9 and Chronic pain G89.29 [facility] [address] [place] [id number] [place] [address] 40545- 7144 Mar, [facility] [address] [place] [address] 90740- 1114 Mar, Chronic pain G89.29 [place] [address] 27023- 5407 February, Chronic pain G89.29 [place] [address] 57126- 5169 Jan, Chronic pain G89.29 [place] [address] 80179- 0515 Jan, [facility] 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 Z79.4 [place] [address] 12615- 2016 Jan, Encounter for Depo-Provera contraception Z30.42 [place] [address] 94824- 7248 Jan, [place] [address] 40736- 3773 Jan, Chronic pain G89.29 and Anxiety F41.9 [place] [address] 95281- 2915 Jan, [place] [address] 87343- 3412 Dec, [place] [address] 53111- 5824 Dec, Gastroesophageal reflux disease without esophagitis K21.9 and Anxiety F41.9 [place] [address] 74893- 1734 Dec, Essential hypertension I10 ; Mixed hyperlipidemia E78.2 ; Type 2 diabetes mellitus with diabetic neuropathy, unspecified E11.40 ; 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 ; Chronic pain G89.29 ; HSV (herpes simplex virus) infection B00.9 ; Anxiety F41.9 and Gastroesophageal reflux disease without esophagitis K21.9 [place] [address] 69531- 9606 07 Dec, 2017 Chronic pain G89.29 and Chronic migraine G43.709 [place] [address] [place] [address]- 3371 Nov, [place] [address] [place] [id number] [place] [address] 89282- 3492 Nov, Essential hypertension I10 and Chronic pain G89.29 [place] [address] [place] [id number] [place] [address] 28117- 9377 Nov, Chronic pain G89.29 ; Essential hypertension I10 and Type 2 diabetes mellitus without complication E11.9 [place] [address] 51501- 3129 Oct, Chronic pain G89.29 [place] [address] 19359- 1897 Oct, [place] [address] [place] [id number] [place] [address] 22771- 3622 Sep, Type 2 diabetes mellitus without complication E11.9 ; Essential hypertension I10 ; head of [employer] (current) use of insulin Z79.4 ; Chronic migraine G43.709 ; Chronic pain G89.29 and Acute non-recurrent maxillary sinusitis J01.00 [place] [address] [place] [id number] [place] [address] 52245- 3595 Sep, Encounter for Depo-Provera contraception Z30.42 [place] [address] [place] [id number] [place] [address] 21875- 6589 Sep, Chronic pain G89.29 and Radiculopathy of lumbar region M54.16 [place] [address] [place] [id number] [place] [address] 30199- 7173 Sep, [place] [address] 20962- 9809 Sep, [place] [address] [place] [id number] [place] [address] 29238- 4997 Aug, Type 2 diabetes mellitus without complication E11.9 [place] [address] [place] [id number] [place] [address] 31035- 4047 Aug, [facility] [address] [facility] [id number], [place] [address] 2546 Aug, Radiculopathy of lumbar region M54.16 and Chronic pain G89.29 [facility] [address] [id number], [place] [address] 2546 Aug, Type 2 diabetes mellitus without complication E11.9 [facility] [address] [id number], [place] [address] 2546 Aug, Type 2 diabetes mellitus without complication E11.9 [facility] [address] [id number], [place] [address]- 0396 Jul, Type 2 diabetes mellitus without complication E11.9 [facility] [address] [facility] [id number], [place] [address]- 7786 Jul, [facility] [address] [facility] [id number], [place] [address]- 9818 Jul, Chronic pain G89.29 [facility] [address] [id number], [place] [address] 2546 Jul, [facility] [address] [facility] [id number], [place] [address]- 4306 Jul, [facility] [address] [facility] [id number], [place] [address]- 1662 Jul, Type 2 diabetes mellitus without complication E11.9 [facility] [address] [facility] [id number], [place] [address]- 2976 Jul, [facility] [address] [facility] [id number], [place] [address]- 254 Jul, Type 2 diabetes mellitus without complication E11.9 [facility] [address] [facility] [id number], [place] [address] 2546 Jul, [facility] [address] [facility] [id number], [place] [address]- 9016 Jul, [facility] [address] [place] [id number] [place] [address] 09803- 6122 Jul, [place] [address] 13120- 3276 Jun, Type 2 diabetes mellitus without complication E11.9 [facility] [address] [place] [id number] [place] [address] 58130- 1006 Jun, Chronic migraine G43.709 ; Type 2 diabetes mellitus without complication E11.9 ; Calculus of right kidney N20.0 ; Yeast dermatitis B37.2 and HSV (herpes simplex virus) infection B00.9 [place] [address] 45707- 3622 Jun, Type 2 diabetes mellitus without complication E11.9 [place] [address] [place] [id number] [place] [address] 74721- 9125 Jun, [place] [address] 52584- 1417 Jun, Radiculopathy of lumbar region M54.16 and Chronic pain G89.29 [place] [address] [place] [id number] [place] [address] 20241- 7702 Jun, Encounter for Depo-Provera contraception Z30.42 [place] [address] [place] [id number] [place] [address] 32286- 0463 Jun, Type 2 diabetes mellitus without complication E11.9 [place] [address] [place] [id number] [place] [address] 12090- 0951 Jun, [facility] [address] [address] [id number] [place] [address] 78152 -6864 May, Acute nasopharyngitis (common cold) J00 [facility] [address] [place] [id number] [place] [address] 46937- 7468 May, Chronic pain G89.29 [facility] [address] [place] [id number] [place] [address] 40793- 0638 May, Headache following lumbar puncture G97.1 [place] [address] [place] [id number] [place] [address] 85441- 1699 May, Radiculopathy of lumbar region M54.16 [place] [address] [place] [id number] [place] [address] 58002- 1105 Apr, [place] [address] [place] [id number] [place] [address] 65982- 6975 Apr, Type 2 diabetes mellitus without complication E11.9 ; Chronic pain G89.29 ; Essential hypertension I10 ; Radiculopathy of lumbar region M54.16 ; Spinal stenosis, lumbar region M48.06 ; Gastroesophageal reflux disease without esophagitis K21.9 ; HSV (herpes simplex virus) infection B00.9 ; Mixed hyperlipidemia E78.2 ; Anxiety F41.9 and Asthma J45.909 [place] [address] [place] [id number] [place] [address] 64652- 7117 Apr, Encounter for Depo-Provera contraception Z30.42 [place] [address] [place] [id number] [place] [address] 12891- 0292 Apr, Chronic pain G89.29 and Anxiety F41.9 [place] [address] [place] [id number] [place] [address] 61036- 6205 Mar, [place] [address] [place] [id number] [place] [address] 64698- 7384 Mar, [place] [address] [place] [id number] [place] [address] 42369- 7278 Mar, Mixed hyperlipidemia E78.2 [place] [address] [place] [id number] [place] [address] 90811- 7058 Mar, Type 2 diabetes mellitus without complication E11.9 ; Chronic pain G89.29 ; Essential hypertension I10 ; Radiculopathy of lumbar region M54.16 ; Spinal stenosis, lumbar region M48.06 ; Gastroesophageal reflux disease without esophagitis K21.9 ; HSV (herpes simplex virus) infection B00.9 ; Mixed hyperlipidemia E78.2 and Anxiety F41.9 [facility] [address] [address]- 8864 Mar, [facility] [address] [place] [id number] [place] [address] 10616- 4779 Mar, [facility] [address] [place] [id number] [place] [address] 45337- 8237 Mar, [facility] [address] [place] [id number] [place] [address] 83665- 3467 February, Chronic pain G89.29 [facility] [address] [place] [id number] [place] [address] 38537- 4806 February, [facility] [address] [place] [id number] [place] [address] 96965- 2739 Jan, Chronic pain G89.29 [facility] [address] [place] [id number] [place] [address] 13621- 2825 Jan, Type 2 diabetes mellitus without complication E11.9 [facility] [address] [address] [id number] [place] [address] 24501- 0847 Jan, [facility] [address] [place] [id number] [place] [address] 35160- 8940 Jan, [facility] [address] [place] [id number] [place] [address] 31452- 0519 Jan, [facility] [address] [place] [id number] [place] [address] 33825- 5755 Jan, Type 2 diabetes mellitus without complication [...] J01.00 and Encounter for Depo-Provera contraception Z30.42 [place] [address] [place] [id number] [place] [address] 36363- 0724 Dec, Chronic pain G89.29 [place] [address] 05536- 8722 Dec, Abnormal ankle brachial index (BERNARDINO) R68.89 [place] [address] [place] [id number] [place] [address] 17928- 1974 Dec, [place] [address] 09982- 0586 Dec, Routine gynecological examination Z01.419 ; Chronic [...] virus) infection B00.9 and Allergic rhinitis 477.9 [place] [address] [place] [id number] [place] [address] 79070- 4429 28 Nov, 2016 Chronic pain G89.29 [place] [address] 74116- 2873 02 Nov, 2016 Chronic pain G89.29 ; [...] mucoid otitis media of both ears H65.113 [place] [address] [place] [id number] [place] [address] 63349- 8279 Oct, [place] [address] [place] [id number] [place] [address] 62995- 3250 Oct, Chronic pain G89.29 [place] [address] [place] [id number] [place] [address] 18016- 8414 Oct, Chronic pain G89.29 [place] [address] 36772- 5859 Sep, Chronic pain G89.29 ; Type 2 diabetes mellitus without complication E11.9 ; Essential hypertension I10 ; Radiculopathy of lumbar region M54.16 ; Spinal stenosis, lumbar region M48.06 ; Gastroesophageal reflux disease without esophagitis K21.9 ; Encounter for surveillance of injectable contraceptive Z30.42 ; Bilateral cold feet R20.9 ; Pain of left foot M79.672 and Pain in right foot M79.671 [place] [address] 14651- 4873 Sep, [place] [address] 71643- 9213 Aug, [place] [address] 49366- 7633 Aug, [place] [address] 95675- 6786 Aug, Chronic pain G89.29 ; Type 2 diabetes mellitus without complication E11.9 ; Essential hypertension I10 ; Rash and nonspecific skin eruption R21 and Upper respiratory infection, acute J06.9 [place] [address] 18856- 2853 Aug, [place] [address] 18714- 7955 Aug, [place] [address] 74398- 0353 Jul, [address] 54244- 6966 Jul, Dysuria R30.0 ; Encounter for Depo-Provera contraception Z30.42 ; Herpes simplex B00.9 ; Nausea & vomiting R11.2 and Asthma J45.909 [facility] [address] [place] [id number] [place] [address] 44639- 3021 21 Jun, 2016 Dysuria R30.0 [facility] [address] [place] [id number] [place] [address] 80769- 7233 19 Jun, 2016 Dysuria R30.0 [facility] [address] [place] [id number] [place] [address] 90166- 7350 15 Jun, 2016 [facility] [address] [place] [id number] [place] [address] 89659- 0828 13 Jun, 2016 [facility] [address] [place] [id number] [place] [address] 85002- 8665 May, [facility] [address] [place] [id number] [place] [address] 42189- 2307 May, [facility] [address] [place] [id number] [place] [address] 32488- 1212 May, Chronic pain G89.29 ; Essential hypertension I10 ; Type 2 diabetes mellitus without complication E11.9 ; Edema of both feet R60.0 and Rash and nonspecific skin eruption R21 [place] [address] [place] [id number] [place] [address] 88859- 9868 Apr, [facility] [address] [place] [id number] [place] [address] 84002- 9303 Mar, Carpal tunnel syndrome, left upper limb G56.02 and Carpal tunnel syndrome, right upper limb G56.01 [facility] [address] [place] [id number] [place] [address] 68221- 5081 Mar, [facility] [address] [place] [id number] [place] [address] 50580- 6070 Mar, Encounter for Depo-Provera contraception Z30.42 [facility] [address] [place] [id number] [place] [address] 58621- 0694 February, [facility] [address] [place] [id number] [place] [address] 60728- 3513 February, [place] [address] [place] [id number] [place] [address] 81697- 8817 February, Chronic pain G89.29 ; Essential hypertension I10 ; Type 2 diabetes mellitus without complication E11.9 ; HSV (herpes simplex virus) infection B00.9 ; Anxiety F41.9 ; Hypersomnia G47.10 ; Tobacco abuse Z72.0 ; Hand pain, left M79.642 ; Hand pain, right M79.641 ; Left foot pain M79.672 and Heart palpitations R00.2 [place] [address] 48570- 8510 Jan, [place] [address] 70973- 8345 Jan, [place] [address] 19592- 9638 Jan, [place] [address] 64867- 3084 Jan, [place] [address] 02322- 3010 Jan, Upper respiratory infection J06.9 and Type 2 diabetes mellitus without complication E11.9 [place] [address] [place] [id number] [place] [address] 63829- 2051 Dec, [place] [address] 10257- 0752 Dec, Chronic pain G89.29 ; Essential hypertension I10 ; Type 2 diabetes mellitus without complication E11.9 ; HSV (herpes simplex virus) infection B00.9 ; Anxiety F41.9 ; Upper respiratory infection J06.9 ; Hypersomnia G47.10 and Tobacco abuse Z72.0 [place] [address] 51176- 1973 Dec, Encounter for Depo-Provera contraception Z30.42 [place] [address] 76982- 6368 Dec, [place] [address] [place] [id number] [place] [address] 21542- 4313 Dec, Chronic pain G89.29 ; Sinusitis J32.9 ; Snoring R06.83 and Daytime hypersomnia G47.19 [place] [address] [place] [id number] [place] [address] 03759- 8953 Nov, HSV (herpes simplex virus) infection B00.9 ; Encounter for Papanicolaou smear for cervical cancer screening Z12.4 ; Screening for STD sexually transmitted disease Z11.3 and Bartholin's gland cyst N75.0 [place] [address] 14459- 2323 Nov, [place] [address] 57860- 5041 Nov, [place] [address] 30753- 8487 Nov, Essential hypertension I10 ; Type 2 diabetes mellitus without complication E11.9 ; HSV (herpes simplex virus) infection B00.9 ; Spinal stenosis, lumbar region M48.06 and Vaginal yeast infection B37.3 [place] [address] [place] [id number] [place] [address] 45909- 7125 Nov, [place] [address] [place] [id number] [place] [address] 01404- 8312 Nov, [place] [address] [place] [id number] [place] [address] 53950- 1405 Oct, [place] [address] [place] [id number] [place] [address] 30683- 6890 Oct, HSV (herpes simplex virus) infection B00.9 ; Yeast infection B37.9 ; Change in bowel habit R19.4 ; Nausea & vomiting R11.2 and Gastroesophageal reflux disease without esophagitis K21.9 [place] [address] [place] [id number] [place] [address] 56386- 8524 Oct, [address] 44214- 1828 Oct, Type 2 diabetes mellitus without complication E11.9 ; Essential hypertension I10 and Acute maxillary sinusitis, recurrence not specified J01.[address] 35782- 2103 Oct, [address] 12018- 1355 Oct, [address] 85088- 8315 Oct, Exposure to head lice Z20.7 ; Blood glucose abnormal R73.09 ; Boil of buttock L02.32 and Type 2 diabetes mellitus without complication E11.[address] 84199- 6163 Oct, [address] 79071- 8442 Sep, [address] 37883- 4615 Sep, [address] 69964- 7996 Aug, Encounter for Depo-Provera contraception Z30.[address] 60333- 0899 Aug, Anxiety F41.9 ; Spinal stenosis, lumbar region M48.06 ; Radiculopathy of lumbar region M54.16 ; Asthma J45.909 ; GERD (gastroesophageal reflux disease) K21.9 ; Essential hypertension I10 and Long-term use of high- risk medication Z79.[address] 06517- 5765 Jul, [address] 46013- 1642 Jun, Hemorrhoid 455.[address] [id number] [place] [address]- 1097 Jun, [place] [address] 76781- 5813 Jun, Anxiety 300.00 ; Asthma 493.90 ; Hyperhidrosis 705.21 ; Chest discomfort 786.59 and Upper respiratory infection 465.[address] 27374- 4919 May, Encounter for Depo-Provera contraception V25.[address] 60816- 7895 May, [address] 17266- 5658 May, [address] 80803- 2249 May, Spinal stenosis of lumbar region with radiculopathy 724.02 ; Bulging of intervertebral disc between L4 and L5 722.10 ; GERD ( gastroesophageal reflux disease) 530.81 ; Chronic pain 338.29 ; Declining mobility 799.89 and Epigastric pain 789.[address] 50828- 1162 Apr, [address] 32178- 9749 Apr, Nausea 787.02 and Heart burn 787.[address] 40174- 0191 Mar, Lumbago 724.2 ; Vitamin D deficiency 268.9 ; Anxiety 300.00 ; Allergic rhinitis 477.9 and Contraceptive surveillance V25.[address] 24751- 1951 February, 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 ; Chronic pain 338.29 and Vaginal discharge 623.[address] [place] [address]- 9971 February, [facility] [place] [facility] [address] [id number] [place] [address]- 4189 February, [facility] [place] [facility] [address] [id number] [place] [address]- 3869 Jan, [facility] [place] [facility] [address] [id number] [place] [address]- 4450 Jan, [facility] [place] [facility] [address] [id number] [place] [address]- 2011 Dec, [facility] [place] [facility] [address] [id number] [place] [address]- 7055 Dec, [facility] [place] [facility] [address] [id number] [place] [address]- 4135 Dec, [facility] [place] [facility] [address] [id number] [place] [address]- 8794 Dec, [facility] [place] [facility] [address] [id number] [place] [address]- 7871 Dec, [facility] [place] [facility] [address] [id number] [place] [address]- 2507 Dec, [facility] [place] [facility] [address] [id number] [place] [address]- 4173 Dec, [facility] [place] [facility] [address] [id number] [place] [address]- 7877 Dec, [facility] [place] [facility] [address] [id number] [place] [address]- 0580 Dec, [facility] [place] [facility] [address] [id number] [place] [address]- 2156 Dec, [facility] [place] [facility] [address] [id number] [place] [address]- 7338 Dec, [facility] [place] [facility] [address] [id number] [place]- 7956 Dec, [facility] [place] [facility] [address] [id number] [place] [address] 2548 Nov, 2014 [facility] [place] [facility] [address] [id number] [place] [address] 2546 Nov, 2014 [facility] [place] [facility] [address] [id number] [place] [address] 2546 24 Nov, 2014 [facility] [place] [facility] [address] [id number] [place] [address] 24 Nov, 2014 [facility] [place] [facility] [address] [id number] [place] [address] Nov, 2014 [facility] [place] [facility] [address] [id number] [place] [address] 23 Nov, 2014 [facility] [place] [facility] [address] [facility] [id number] [place] [address] 16 Nov, 2014 [facility] [place] [facility] [address] [id number] [place] [address] 16 Nov, 2014 [facility] [place] [facility] [address] [id number] [place] [address] 13 Nov, 2014 [facility] [place] [facility] [address] [facility] [id number] [place] [address] 13 Nov, 2014 [facility] [place] [facility] [address] [facility] [id number] [place] [address] 13 Nov, 2014 [facility] [place] [facility] [address] [id number] [place] [address] 13 Nov, 2014 [facility] [place] [facility] [address] [id number] [place] [address] 13 Nov, 2014 [facility] [place] [facility] [address] [id number] [place] [address] 13 Nov, 2014 [facility] [place] [facility] [address] [facility] [id number] [place] [address] 13 Nov, 2014 [facility] [place] [facility] [address] [id number] [place] [address] 13 Nov, 2014 [facility] [place] [facility] [address] [id number] [place] [address] Nov, 2014 [facility] [place] [facility] [address] [id number] [place] [address] Nov, 2014 [facility] [place] [facility] [address] [id number] [place] [address] Nov, 2014 [facility] [place] [facility] [address] [id number] [place] [address] Nov, 2014 [facility] [place] [facility] [address] [id number] [place] [address] Nov, 2014 [facility] [place] [facility] [address] [facility] [id number] [place] [address] Nov, 2014 [facility] [place] [facility] [address] [facility] [id number] [place] [address] Nov, 2014 [facility] [place] [facility] [address] [id number] [place] [address] Oct, [facility] [place] [facility] [address] [facility] [id number] [place] [address] Oct, [facility] [place] [facility] [address] [facility] [id number] [place] [address] Oct, [facility] [place] [facility] [address] [id number], [place] [address] Oct, [facility] [place] [facility] [address] [id number] [place] [address] 8130 Oct, [facility] [place] [facility] [address] [id number] [place] [address] 1669 Oct, [facility] [place] [facility] [address] [id number] [place] [address] Oct, [facility] [place] [facility] [address] [id number], [place] [address] Oct, [facility] [place] [facility] [address] [id number] [place] [address] 4562 Oct, [facility] [place] [facility] [address] [id number] [place] [address]- 4546 Oct, [facility] [place] [facility] [address] [id number] [place] [address] 6793 Oct, [facility] [place] [facility] [address] [id number] [place] [address]- 4644 Oct, [facility] [place] [facility] [address] [id number] [place] [address]- 5523 Oct, [facility] [place] [facility] [address] [id number] [place] [address] 9075 Oct, [facility] [place] [facility] [address] [id number] [place] [address]- 5691 Oct, [facility] [place] [facility] [address] [id number] [place] [address] 1287 Oct, [facility] [place] [facility] [address] [id number] [place] [address]- 1674 Oct, [facility] [place] [facility] [address] [id number] [place] [address]- 8145 Oct, [facility] [place] [facility] [address] [id number] [place] [address]- 0831 Oct, [facility] [place] [facility] [address] [id number] [place] [address]- 0374 Oct, [facility] [place] [facility] [address] [id number] [place] [address]- 2096 Oct, [facility] [place] [facility] [address] [id number] [place] [address]- 4539 Sep, [facility] [place] [facility] [address] [id number] [place] [address]- 1844 Sep, [facility] [place] [facility] [address] [id number] [place] [address]- 2396 18 Sep, 2014 [facility] [place] [facility] [address] [id number] [place] [address]- 7766 18 Sep, 2014 [facility] [place] [facility] [address] [id number] [place] [address]- 0556 17 Sep, 2014 [facility] [place] [facility] [address] [id number] [place] [address]- 9696 17 Sep, 2014 [facility] [place] [facility] [address] [id number] [place] [address]- 5762 15 Sep, 2014 [facility] [place] [facility] [address] [id number] [place] [address]- 2168 15 Sep, 2014 [facility] [place] [facility] [address] [id number] [place] [address]- 9423 12 Sep, 2014 [facility] [place] [facility] [address] [id number] [place] [address]- 2656 12 Sep, 2014 [facility] [place] [facility] [address] [id number] [place] [address]- 0135 11 Sep, 2014 [facility] [place] [facility] [address] [id number] [place] [address]- 9969 11 Sep, 2014 [facility] [place] [facility] [address] [id number] [place] [address]- 3320 11 Sep, 2014 [facility] [place] [facility] [address] [id number] [place] [address]- 9091 11 Sep, 2014 [facility] [place] [facility] [address] [id number] [place] [address]- 0721 11 Sep, 2014 [facility] [place] [facility] [address] [id number] [place] [address]- 8206 11 Sep, 2014 [facility] [place] [facility] [address] [id number] [place] [address]- 4206 10 Sep, 2014 [facility] [place] [facility] [address] [id number] [place] [address]- 8315 Sep, [facility] [place] [facility] [address] [id number] [place] [address]- 1183 Sep, [facility] [place] [facility] [address] [id number] [place] [address]- 2153 Sep, [facility] [place] [facility] [address] [id number] [place] [address]- 9230 Aug, [facility] [place] [facility] [address] [id number] [place] [address]- 1364 Aug, [facility] [place] [facility] [address] [id number] [place] [address]- 7657 Aug, [facility] [place] [facility] [address] [id number] [place] [address]- 5727 Aug, [facility] [place] [facility] [address] [id number] [place] [address]- 0463 Aug, [facility] [place] [facility] [address] [id number] [place] [address]- 4905 Aug, [facility] [place] [facility] [address] [id number] [place] [address]- 3512 Aug, [facility] [place] [facility] [address] [id number] [place] [address]- 5737 Aug, [facility] [place] [facility] [address] [id number] [place] [address]- 1859 Aug, [facility] [place] [facility] [address] [id number], [place] [address] 267[address] Jul, [facility] [place] [facility] [address] [id number] [place] [address]- 5379 Jul, [facility] [place] [facility] [address] [id number] [place] [address]- 7402 Jul, [facility] [place] [facility] [address] [id number] [place] [address]- 7422 Jul, [facility] [place] [facility] [address] [id number] [place] [address]- 8726 16 Jul, 2013 [facility] [place] [facility] [address] [id number] [place] [address]- 9298 16 Jul, 2013 [facility] [place] [facility] [address] [id number] [place] [address]- 6377 13 Jul, 2013 [facility] [place] [facility] [address] [id number] [place] [address]- 7496 13 Jul, 2013 [facility] [place] [facility] [address] [id number] [place] [address]- 2685 10 Jul, 2013 [facility] [place] [facility] [address] [id number] [place] [address]- 3604 10 Jul, 2013 [facility] [place] [facility] [address] [id number] [place] [address]- 5051 10 Jul, 2013 [facility] [place] [facility] [address] [id number] [place] [address]- 3946 10 Jul, 2013 [facility] [place] [facility] [address] [id number] [place] [address]- 4624 07 Jul, 2013 [facility] [place] [facility] [address] [id number] [place] [address]- 2466 07 Jul, 2013 [facility] [place] [facility] [address] [id number] [place] [address]- 2490 30 Jun, 2013 [facility] [place] [facility] [address] [id number] [place] [address]- 2639 30 Sep, 2013 [facility] [place] [facility] [address] [id number] [place] [address]- 2544 25 Sep, 2013 [facility] [place] [facility] [address] [id number] [place] [address] 2546 25 Sep, 2013 [facility] [place] [facility] [address] [id number] [place] [address]- 2546 25 Jun, 2013 [facility] [place] [facility] [address] [id number] [place] [address]- 7406 25 Jun, 2013 [facility] [place] [facility] [address] [id number] [place] [address]- 9741 24 Sep, 2013 [facility] [place] [facility] [address] [id number] [place] [address] 2546 24 Sep, 2013 [facility] [place] [facility] [address] [id number] [place] [address] 254 22 Sep, 2013 [facility] [place] [facility] [address] [id number] [place] [address] 2545 22 Sep, 2013 [facility] [place] [facility] [address] [id number] [place] [address] 2549 17 Sep, 2013 [facility] [place] [facility] [address] [id number] [place] [address]- 6087 17 Sep, 2013 [facility] [place] [facility] [address] [id number] [place] [address]- 8711 16 Jun, 2013 [facility] [place] [facility] [address] [id number] [place] [address]- 2826 16 Jun, 2013 [facility] [place] [facility] [address] [id number] [place] [address]- 6770 15 Jun, 2013 [facility] [place] [facility] [address] [id number] [place] [address]- 2540 15 Sep, 2013 [facility] [place] [facility] [address] [id number] [place] [address]- 4171 12 Jun, 2013 [facility] [place] [facility] [address] [id number] [place] [address]- 2545 12 Sep, 2013 [facility] [place] [facility] [address] [id number] [place] [address] 2541 11 Jun, 2013 [facility] [place] [facility] [address] [id number] [place] [address] 2546 11 Sep, 2013 [facility] [place] [facility] [address] [id number] [place] [address]- 2544 11 Sep, 2013 [facility] [place] [facility] [address] [id number] [place] [address]- 6564 Jun, [facility] [place] [facility] [address] [id number] [place] [address]- 1039 Jun, [facility] [place] [facility] [address] [id number] [place] [address]- 7221 Jun, [facility] [place] [facility] [address] [id number] [place] [address]- 0357 Jun, [facility] [place] [facility] [address] [id number] [place] [address]- 6991 Jun, [facility] [place] [facility] [address] [id number] [place] [address]- 9164 May, [facility] [place] [facility] [address] [id number] [place] [address]- 6004 May, [facility] [place] [facility] [address] [id number] [place] [address]- 3628 May, [facility] [place] [facility] [address] [id number] [place] [address]- 6647 May, [facility] [place] [facility] [address] [id number] [place] [address]- 2164 May, [facility] [place] [facility] [address] [id number] [place] [address]- 8333 May, [facility] [place] [facility] [address] [id number] [place] [address]- 7338 May, [facility] [place] [facility] [address] [id number] [place] [address]- 4985 May, [facility] [place] [facility] [address] [id number] [place] [address]- 4684 May, [facility] [place] [facility] [address] [id number] [place] [address]- 8831 May, [facility] [place] [facility] [address] [id number] [place] [address]- 9124 May, [facility] [place] [facility] [address] [id number] [place] [address]- 8418 May, [facility] [address] [id number] [place] [address]- 8186 May, [facility] [place] [facility] [address] [id number] [place] [address]- 7337 Apr, [facility] [place] [facility] [address] [id number] [place] [address]- 7106 Apr, [facility] [place] [facility] [address] [id number] [place] [address]- 1479 Apr, [facility] [place] [facility] [address] [id number] [place] [address]- 4951 Apr, [facility] [place] [facility] [address] [id number] [place] [address]- 6346 Apr, [facility] [address] [id number] [place] [address]- 5980 Mar, [facility] [place] [facility] [address] [id number] [place] [address]- 1389 Mar, [facility] [place] [facility] [address] [id number] [place] [address]- 0781 Mar, [facility] [address] [id number] [place] [address]- 2893 February, [facility] [place] [facility] [address] [id number] [place] [address]- 8469 February, [facility] [place] [facility] [address] [id number] [place] [address]- 9635 February, [facility] [place] [facility] [address] [id number] [place] [address]- 6551 February, [facility] [place] [facility] [address] [id number] [place] [address]- 4103 February, [facility] [place] [facility] [address] [id number] [place] [address]- 0905 February, [facility] [place] [facility] [address] [id number] [place] [address]- 3249 February, [facility] [place] [facility] [address] [id number] [place] [address]- 2864 February, [facility] [place] [facility] [address] [id number] [place] [address]- 8117 February, [facility] [place] [facility] [address] [id number] [place] [address]- 8073 Jan, [facility] [place] [facility] [address] [id number] [place] [address]- 5405 Jan, [facility] [place] [facility] [address] [id number] [place] [address]- 0568 Jan, [facility] [place] [facility] [address] [id number] [place] [address]- 7731 Jan, [facility] [place] [facility] [address] [id number] [place] [address]- 5850 Jan, [facility] [place] [facility] [address] [id number] [place] [address]- 8400 Dec, [facility] [place] [facility] [address] [id number] [place] [address]- 8661 Dec, [facility] [place] [facility] [address] [id number] [place] [address]- 0308 Dec, [facility] [place] [facility] [address] [id number], [place] [address]- 9143 Dec, [facility] [place] [facility] [address] [id number] [place] [address]- 0088 Dec, [facility] [place] [facility] [address] [id number] [place] [address]- 5210 Nov, [facility] [place] [facility] [address] [id number] [place] [address]- 1904 Nov, [facility] [place] [facility] [address] [id number], [place] [address]- 7687 Nov, [facility] [place] [facility] [address] [id number] [place] [address]- 9701 Nov, [facility] [place] [facility] [address] [id number] [place] [address]- 5800 Oct, [facility] [place] [facility] [address] [id number] [place] [address]- 1855 Oct, [facility] [place] [facility] [address] [id number] [place] [address]- 0047 Oct, [facility] [place] [facility] [address] [id number] [place] [address]- 3563 Oct, [facility] [place] [facility] [address] [id number] [place] [address]- 4033 Oct, [facility] [place] [facility] [address] [id number] [place] [address]- 2499 Oct, [facility] [place] [facility] [address] [id number] [place] [address]- 9768 Oct, [facility] [place] [facility] [address] [id number] [place] [address]- 6893 Oct, [facility] [place] [facility] [address] [facility] [id number] [place] [address]- 2062 Oct, [facility] [place] [facility] [address] [id number] [place] [address]- 7082 Oct, [facility] [place] [facility] [address] [id number], [place] [address]- 8525 Aug, [facility] [place] [facility] [address] [id number] [place] [address]- 9478 Aug, [facility] [place] [facility] [address] [facility] [id number] [place] [address]- 8620 Jul, [facility] [place] [facility] [address] [facility] [id number], [place] [address]- 0420 Jul, [facility] [place] [facility] [address] [id number] [place] [address]- 0774 Jul, [facility] [address] [id number] [place] [address]- 3829 Jul, [facility] [place] [facility] [address] [id number] [place] [address]- 1076 Jul, [facility] [place] [facility] [address] [id number] [place] [address]- 2225 Jul, [facility] [place] [facility] [address] [id number] [place] [address]- 7074 Apr, [facility] [place] [facility] [address] [id number] [place] [address]- 5471 Dec, [facility] [address] [id number] [place] [address]- 2438 Nov, [facility] [place] [facility] [address] [id number] [place] [address]- 2672 Nov, [facility] [address] [id number] [place] [address]- 9729 Nov, [facility] [address] [facility] [id number] [place] [address]- 0132 Oct, [facility] [address] [id number] [place] [address]- 9355 Sep, [facility] [place] [facility] [address] [id number] [place] [address]- 0880 Sep, [facility] [place] [facility] [address] [id number] [place] [address]- 9427 Sep, [facility] [place] [facility] [address] [id number] [place] [address]- 3981 Sep, [facility] [place] [facility] [address] [id number] [place] [address]- 9122 Aug, [facility] [place] [facility] [address] [id number] [place] [address]- 1150 Aug, [facility] [place] [facility] [address] [id number] [place] [address]- 4456 Jul, [facility] [place] [facility] [address] [id number] [place] [address]496 Jul, [facility] [place] [facility] [address] [id number] [place] [address]- 3906 28 Jun, 2012 [facility] [place] [facility] [address] [id number] [place] [address]- 9393 26 Jun, 2012 [facility] [place] [facility] [address] [id number] [place] [address]- 1670 24 Jun, 2012 [facility] [place] [facility] [address] [id number] [place] [address]- 7690 24 Jun, 2012 [facility] [place] [facility] [address] [id number] [place] [address]- 3956 Jun, [facility] [place] [facility] [address] [id number] [place] [address]- 9141 31 Apr, 2012 [facility] [place] [facility] [address] [id number] [place] [address]- 0244 30 Apr, 2012 [facility] [place] [facility] [address] [id number] [place] [address]- 3968 Apr, [facility] [place] [facility] [address] [id number] [place] [address]- 0669 Mar, [facility] [place] [facility] [address] [id number] [place] [address]- 2015 Mar, [facility] [place] [facility] [address] [id number] [place] [address]- 5039 Mar, [facility] [place] [facility] [address] [id number] [place] 4347 February, [facility] [place] [facility] [address] [id number] [place] [address]- 4760 Jan, [facility] [place] [facility] [address] [id number] [place] [address]- 5167 Dec, [facility] [address] [id number] [place] [address]- 8022 Dec, [facility] [place] [facility] [address] [id number] [place] [address]- 1714 20 Dec, 2011 [facility] [address] [id number] [place] [address]- 4662 19 Dec, 2011 [facility] [place] [facility] [address] [id number] [place] [address]- 0843 Dec, [facility] [address] [id number] [place] [address]- 9300 14 Nov, 2011 [facility] [place] [facility] [address] [id number] [place] [address]- 5078 13 Nov, 2011 [facility] [place] [facility] [address] [id number] [place] [address]- 7956 Oct, [facility] [address] [id number] [place] [address]- 8845 Oct, [facility] [address] [id number] [place] [address]- 4465 Oct, [facility] [address] [id number] [place] [address]- 1129 Sep, [facility] [place] [facility] [address] [id number] [place] [address]- 3584 Aug, [facility] [place] [facility] [address] [id number] [place] [address]- 1503 Aug, [facility] [place] [facility] [address] [id number] [place] [address]- 1636 Jul, [facility] [place] [facility] [address] [id number] [place] [address]- 1016 Jul, [facility] [place] [facility] [address] [id number] [place] [address]- 2164 19 Jul, 2011 [facility] [place] [facility] [address] [id number] [place] [address]- 5523 13 Jan, 2011 [facility] [place] [facility] [address] [id number] [place] [address]- 1704 29 Sep, 2010 [facility] [place] [facility] [address] [id number] [place] [address]- 7674 27 Sep, 2010 [facility] [place] [facility] [address] [id number] [place] [address]- 7679 Sep, [facility] [place] [facility] [address] [id number] [place] [address] Sep, [facility] [place] [facility] [address] [id number] [place] [address] 06 Sep, 2010 [facility] [place] [facility] [address] [id number] [place] [address] Aug, [facility] [place] [facility] [address] [id number] [place] [address] 16 Aug, 2010 [facility] [place] [facility] [address] [id number] [place] [address] 08 Aug, 2010 [facility] [place] [facility] [address] [id number], [place] [address] Jul, [facility] [place] [facility] [address] [id number], [place] [address] Jul, [facility] [place] [facility] [address] [id number], [place] [address] Jul, [facility] [place] [facility] [address] [id number] [place] [address] 11 May, 2010 [facility] [place] [facility] [address] [id number], [place] [address] 13 Apr, 2010 [facility] [place] [facility] [address] [id number] [place] [address] 18 Dec, 2009 [facility] [place] [facility] [address] [facility] [id number] [place] [address] Sep, [facility] [address] [facility] [id number], [place] [address] Sep, [facility] [address] [facility] [id number], [place] [address] Aug, [facility] [address] [id number], [place] [address] Aug, [facility] [address] [id number], [place] [address] Jul, [facility] [address] [facility] [id number], [place] [address] Mar, IMMUNIZATIONS No Known Immunizations SOCIAL HISTORY Never Assessed REASON FOR VISIT Controlled Med Refill 12/27 PLAN OF CARE VITAL SIGNS MEDICATIONS Medication Instructions Dosage Frequency Start Date End Date Duration Status MS Contin 15 MG Orally every 12 hrs as needed must last 28 days 1 tablet Dec, Active Lyrica 150 MG Orally Three times a day 1 capsule 8h Active Yseyggrftq-UZLN-Owvhikcm 50-325-40 MG Orally every 6 hrs for severe headache 1 tablet as needed Jun, Active Hydrocodone-Acetaminophen 5-325 MG Orally four times a day as needed for pain. Must last 28 days. 1 tablet Dec, Active Clorazepate Dipotassium 15 MG Orally 3 times a day prn must last 28 days. 1 tablet 28 Active RESULTS No Results PROCEDURES No Known [...]
--- OUTSIDE RECORDS SUMMARY | 2018-10-08 19:55 | XMS REPORT ---
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 Z79.4 Active 602732287 Problem Edema of both feet R60.0 Active 264265133 Problem Tobacco abuse Z72.0 Active 09792749 Problem Chronic migraine G43.709 Active 50492426 Problem Mixed hyperlipidemia E78.2 Active 024545236 Problem Spinal stenosis, lumbar region M48.06 Active 04967958 Problem Anxiety F41.9 Active 62770732 Problem Radiculopathy of lumbar region M54.16 Active 236159864 Problem Bulging lumbar disc M51.26 Active 663575230 Problem Asthma J45.909 Active 330483015 Problem Essential hypertension I10 Active 38672943 ALLERGIES No Information ENCOUNTERS Encounter Location Date Diagnosis [place] [id number] [place] [address] 76447- 8741 Mar, HSV (herpes simplex virus) infection B00.9 ; Anxiety F41.9 and Chronic pain G89.29 [facility] [address] [place] [id number] [place] [address] 02573- 6429 Mar, [facility] [id number] [place] [address] 08091- 0673 Mar, Chronic pain G89.29 [place] [address] 08757- 7240 February, Chronic pain G89.29 [place] [address] 94104- 7533 Jan, Chronic pain G89.29 [place] [address] 46695- 0437 Jan, long-term 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 Z79.4 [place] [address] 26872- 2649 Jan, Encounter for Depo-Provera contraception Z30.42 [place] [address] 66210- 1478 Jan, [place] [address] 18185- 6460 Jan, Chronic pain G89.29 and Anxiety F41.9 [place] [address] 24566- 4642 Jan, [place] [address] 51666- 1777 Dec, [place] [address] 57439- 8793 Dec, Gastroesophageal reflux disease without esophagitis K21.9 and Anxiety F41.9 [place] [address] 38753- 6955 Dec, Essential hypertension I10 ; Mixed hyperlipidemia E78.2 ; Type 2 diabetes mellitus with diabetic neuropathy, unspecified E11.40 ; standard machine stitcher 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 Z79.4 ; Chronic pain G89.29 ; HSV (herpes simplex virus) infection B00.9 ; Anxiety F41.9 and Gastroesophageal reflux disease without esophagitis K21.9 [place] [address] 10712- 9760 07 Dec, 2017 Chronic pain G89.29 and Chronic migraine G43.709 [place] [address] [place] [address]- 6044 Nov, [place] [address] [place] [id number] [place] [address] 65941- 0173 Nov, Essential hypertension I10 and Chronic pain G89.29 [place] [address] [place] [id number] [place] [address] 18377- 0631 Nov, Chronic pain G89.29 ; Essential hypertension I10 and Type 2 diabetes mellitus without complication E11.9 [place] [address] 74328- 7797 Oct, Chronic pain G89.29 [place] [address] 30896- 3342 Oct, [place] [address] [place] [id number] [place] [address] 06734- 6966 Sep, Type 2 diabetes mellitus without complication E11.9 ; Essential hypertension I10 ; standard machine stitcher (current) use of insulin Z79.4 ; Chronic migraine G43.709 ; Chronic pain G89.29 and Acute non-recurrent maxillary sinusitis J01.00 [place] [address] [place] [id number] [place] [address] 10893- 1330 Sep, Encounter for Depo-Provera contraception Z30.42 [place] [address] [place] [id number] [place] [address] 44984- 2394 Sep, Chronic pain G89.29 and Radiculopathy of lumbar region M54.16 [place] [address] [place] [id number] [place] [address] 66799- 4235 Sep, [place] [address] 83903- 5939 Sep, [place] [address] [place] [id number] [place] [address] 13114- 0850 Aug, Type 2 diabetes mellitus without complication E11.9 [place] [address] [place] [id number] [place] [address] 32607- 8252 Aug, [facility] [address] [facility] [id number], [place] [address] 2546 Aug, Radiculopathy of lumbar region M54.16 and Chronic pain G89.29 [facility] [address] [id number], [place] [address] 2546 Aug, Type 2 diabetes mellitus without complication E11.9 [facility] [address] [id number], [place] [address] 2546 Aug, Type 2 diabetes mellitus without complication E11.9 [facility] [address] [id number], [place] [address]- 8776 Jul, Type 2 diabetes mellitus without complication E11.9 [facility] [address] [facility] [id number], [place] [address]- 4086 Jul, [facility] [address] [facility] [id number], [place] [address]- 8040 Jul, Chronic pain G89.29 [facility] [address] [id number], [place] [address] 2546 Jul, [facility] [address] [facility] [id number], [place] [address]- 4016 Jul, [facility] [address] [facility] [id number], [place] [address]- 0123 Jul, Type 2 diabetes mellitus without complication E11.9 [facility] [address] [facility] [id number], [place] [address]- 7386 Jul, [facility] [address] [facility] [id number], [place] [address]- 2548 Jul, Type 2 diabetes mellitus without complication E11.9 [facility] [address] [facility] [id number], [place] [address] 2546 Jul, [facility] [address] [facility] [id number], [place] [address]- 6616 Jul, [facility] [address] [place] [id number] [place] [address] 81248- 1472 Jul, [place] [address] 22655- 0338 Jun, Type 2 diabetes mellitus without complication E11.9 [facility] [address] [place] [id number] [place] [address] 90200- 2337 Jun, Chronic migraine G43.709 ; Type 2 diabetes mellitus without complication E11.9 ; Calculus of right kidney N20.0 ; Yeast dermatitis B37.2 and HSV (herpes simplex virus) infection B00.9 [place] [address] 93266- 3571 Jun, Type 2 diabetes mellitus without complication E11.9 [place] [address] [place] [id number] [place] [address] 60434- 2871 Jun, [place] [address] 98497- 5593 Jun, Radiculopathy of lumbar region M54.16 and Chronic pain G89.29 [place] [address] [place] [id number] [place] [address] 81360- 3266 Jun, Encounter for Depo-Provera contraception Z30.42 [place] [address] [place] [id number] [place] [address] 80348- 1159 Jun, Type 2 diabetes mellitus without complication E11.9 [place] [address] [place] [id number] [place] [address] 02377- 9365 Jun, [facility] [address] [place] [place] [id number] [place] [address] 40898 -3814 May, Acute nasopharyngitis (common cold) J00 [facility] [address] [place] [id number] [place] [address] 41379- 7098 May, Chronic pain G89.29 [facility] [address] [place] [id number] [place] [address] 92972- 9104 May, Headache following lumbar puncture G97.1 [place] [address] [place] [id number] [place] [address] 90215- 8924 May, Radiculopathy of lumbar region M54.16 [place] [address] [place] [id number] [place] [address] 21025- 5578 Apr, [place] [address] [place] [id number] [place] [address] 60313- 7245 Apr, Type 2 diabetes mellitus without complication E11.9 ; Chronic pain G89.29 ; Essential hypertension I10 ; Radiculopathy of lumbar region M54.16 ; Spinal stenosis, lumbar region M48.06 ; Gastroesophageal reflux disease without esophagitis K21.9 ; HSV (herpes simplex virus) infection B00.9 ; Mixed hyperlipidemia E78.2 ; Anxiety F41.9 and Asthma J45.909 [place] [address] [place] [id number] [place] [address] 62208- 2335 Apr, Encounter for Depo-Provera contraception Z30.42 [place] [address] [place] [id number] [place] [address] 61185- 6061 Apr, Chronic pain G89.29 and Anxiety F41.9 [place] [address] [place] [id number] [place] [address] 70059- 0168 Mar, [place] [address] [place] [id number] [place] [address] 21023- 0839 Mar, [place] [address] [place] [id number] [place] [address] 26058- 3169 Mar, Mixed hyperlipidemia E78.2 [place] [address] [place] [id number] [place] [address] 52401- 3543 Mar, Type 2 diabetes mellitus without complication E11.9 ; Chronic pain G89.29 ; Essential hypertension I10 ; Radiculopathy of lumbar region M54.16 ; Spinal stenosis, lumbar region M48.06 ; Gastroesophageal reflux disease without esophagitis K21.9 ; HSV (herpes simplex virus) infection B00.9 ; Mixed hyperlipidemia E78.2 and Anxiety F41.9 [facility] [address] [address]- 4479 Mar, [facility] [address] [place] [id number] [place] [address] 21493- 1235 Mar, [facility] [address] [place] [id number] [place] [address] 80255- 6810 Mar, [facility] [address] [place] [id number] [place] [address] 23294- 9557 February, Chronic pain G89.29 [facility] [address] [place] [id number] [place] [address] 09349- 0840 February, [facility] [address] [place] [id number] [place] [address] 71882- 7592 Jan, Chronic pain G89.29 [facility] [address] [place] [id number] [place] [address] 48965- 4127 Jan, Type 2 diabetes mellitus without complication E11.9 [facility] [address] [place] [id number] [place] [address] 50424- 8695 Jan, [facility] [address] [place] [id number] [place] [address] 52883- 3059 Jan, [facility] [address] [place] [id number] [place] [address] 28279- 2751 Jan, [facility] [address] [place] [id number] [place] [address] 11865- 7936 Jan, Type 2 diabetes mellitus without complication [...] J01.00 and Encounter for Depo-Provera contraception Z30.42 [place] [address] [place] [id number] [place] [address] 74805- 4793 Dec, Chronic pain G89.29 [place] [address] 23493- 8018 Dec, Abnormal ankle brachial index (BERNARDINO) R68.89 [place] [address] [place] [id number] [place] [address] 38154- 5011 Dec, [place] [address] 45637- 5312 Dec, Routine gynecological examination Z01.419 ; Chronic [...] virus) infection B00.9 and Allergic rhinitis 477.9 [place] [address] [place] [id number] [place] [address] 21095- 5149 28 Nov, 2016 Chronic pain G89.29 [place] [address] 69379- 4763 02 Nov, 2016 Chronic pain G89.29 ; [...] mucoid otitis media of both ears H65.113 [place] [address] [place] [id number] [place] [address] 63818- 6647 Oct, [place] [address] [place] [id number] [place] [address] 76736- 5999 Oct, Chronic pain G89.29 [place] [address] [place] [id number] [place] [address] 09151- 3352 Oct, Chronic pain G89.29 [place] [address] 14617- 4179 Sep, Chronic pain G89.29 ; Type 2 diabetes mellitus without complication E11.9 ; Essential hypertension I10 ; Radiculopathy of lumbar region M54.16 ; Spinal stenosis, lumbar region M48.06 ; Gastroesophageal reflux disease without esophagitis K21.9 ; Encounter for surveillance of injectable contraceptive Z30.42 ; Bilateral cold feet R20.9 ; Pain of left foot M79.672 and Pain in right foot M79.671 [place] [address] 96022- 1296 Sep, [place] [address] 68268- 3860 Aug, [place] [address] 37650- 6370 Aug, [place] [address] 71208- 3195 Aug, Chronic pain G89.29 ; Type 2 diabetes mellitus without complication E11.9 ; Essential hypertension I10 ; Rash and nonspecific skin eruption R21 and Upper respiratory infection, acute J06.9 [place] [address] 92476- 6832 Aug, [place] [address] 98134- 7174 Aug, [place] [address] 85303- 1237 Jul, [address] 35128- 4461 Jul, Dysuria R30.0 ; Encounter for Depo-Provera contraception Z30.42 ; Herpes simplex B00.9 ; Nausea & vomiting R11.2 and Asthma J45.909 [facility] [address] [place] [id number] [place] [address] 05539- 6745 21 Jun, 2016 Dysuria R30.0 [facility] [address] [place] [id number] [place] [address] 69356- 2890 19 Jun, 2016 Dysuria R30.0 [facility] [address] [place] [id number] [place] [address] 89447- 7943 15 Jun, 2016 [facility] [address] [place] [id number] [place] [address] 16659- 1602 13 Jun, 2016 [facility] [address] [place] [id number] [place] [address] 25465- 4876 May, [facility] [address] [place] [id number] [place] [address] 17931- 0318 May, [facility] [address] [place] [id number] [place] [address] 49702- 1287 May, Chronic pain G89.29 ; Essential hypertension I10 ; Type 2 diabetes mellitus without complication E11.9 ; Edema of both feet R60.0 and Rash and nonspecific skin eruption R21 [place] [address] [place] [id number] [place] [address] 88039- 4864 Apr, [facility] [address] [place] [id number] [place] [address] 14803- 5090 Mar, Carpal tunnel syndrome, left upper limb G56.02 and Carpal tunnel syndrome, right upper limb G56.01 [facility] [address] [place] [id number] [place] [address] 22225- 4324 Mar, [facility] [address] [place] [id number] [place] [address] 24487- 0860 Mar, Encounter for Depo-Provera contraception Z30.42 [facility] [address] [place] [id number] [place] [address] 65429- 7176 February, [facility] [address] [place] [id number] [place] [address] 33506- 0370 February, [place] [address] [place] [id number] [place] [address] 31021- 6745 February, Chronic pain G89.29 ; Essential hypertension I10 ; Type 2 diabetes mellitus without complication E11.9 ; HSV (herpes simplex virus) infection B00.9 ; Anxiety F41.9 ; Hypersomnia G47.10 ; Tobacco abuse Z72.0 ; Hand pain, left M79.642 ; Hand pain, right M79.641 ; Left foot pain M79.672 and Heart palpitations R00.2 [place] [address] 77296- 1294 Jan, [place] [address] 07012- 8751 Jan, [place] [address] 42997- 3305 Jan, [place] [address] 72243- 5912 Jan, [place] [address] 58898- 6197 Jan, Upper respiratory infection J06.9 and Type 2 diabetes mellitus without complication E11.9 [place] [address] [place] [id number] [place] [address] 59823- 3016 Dec, [place] [address] 58301- 7349 Dec, Chronic pain G89.29 ; Essential hypertension I10 ; Type 2 diabetes mellitus without complication E11.9 ; HSV (herpes simplex virus) infection B00.9 ; Anxiety F41.9 ; Upper respiratory infection J06.9 ; Hypersomnia G47.10 and Tobacco abuse Z72.0 [place] [address] 76246- 6118 Dec, Encounter for Depo-Provera contraception Z30.42 [place] [address] 09430- 2729 Dec, [place] [address] [place] [id number] [place] [address] 86031- 7964 Dec, Chronic pain G89.29 ; Sinusitis J32.9 ; Snoring R06.83 and Daytime hypersomnia G47.19 [place] [address] [place] [id number] [place] [address] 04304- 0265 Nov, HSV (herpes simplex virus) infection B00.9 ; Encounter for Papanicolaou smear for cervical cancer screening Z12.4 ; Screening for STD sexually transmitted disease Z11.3 and Bartholin's gland cyst N75.0 [place] [address] 71386- 0899 Nov, [place] [address] 55500- 8573 Nov, [place] [address] 37923- 4374 Nov, Essential hypertension I10 ; Type 2 diabetes mellitus without complication E11.9 ; HSV (herpes simplex virus) infection B00.9 ; Spinal stenosis, lumbar region M48.06 and Vaginal yeast infection B37.3 [place] [address] [place] [id number] [place] [address] 30910- 8392 Nov, [place] [address] [place] [id number] [place] [address] 52232- 7503 Nov, [place] [address] [place] [id number] [place] [address] 00707- 5209 Oct, [place] [address] [place] [id number] [place] [address] 44320- 1082 Oct, HSV (herpes simplex virus) infection B00.9 ; Yeast infection B37.9 ; Change in bowel habit R19.4 ; Nausea & vomiting R11.2 and Gastroesophageal reflux disease without esophagitis K21.9 [place] [address] [place] [id number] [place] [address] 34608- 2678 Oct, [address] 98254- 5714 Oct, Type 2 diabetes mellitus without complication E11.9 ; Essential hypertension I10 and Acute maxillary sinusitis, recurrence not specified J01.[address] 85983- 7547 Oct, [address] 66567- 7713 Oct, [address] 11605- 3511 Oct, Exposure to head lice Z20.7 ; Blood glucose abnormal R73.09 ; Boil of buttock L02.32 and Type 2 diabetes mellitus without complication E11.[address] 69539- 0847 Oct, [address] 13264- 3811 Sep, [address] 62096- 3117 Sep, [address] 09886- 0706 Aug, Encounter for Depo-Provera contraception Z30.[address] 29731- 3342 Aug, Anxiety F41.9 ; Spinal stenosis, lumbar region M48.06 ; Radiculopathy of lumbar region M54.16 ; Asthma J45.909 ; GERD (gastroesophageal reflux disease) K21.9 ; Essential hypertension I10 and Long-term use of high- risk medication Z79.[address] 29061- 3299 Jul, [address] 99843- 0846 Jun, Hemorrhoid 455.[address] [id number] [place] [address]- 5966 Jun, [place] [address] 67551- 5120 Jun, Anxiety 300.00 ; Asthma 493.90 ; Hyperhidrosis 705.21 ; Chest discomfort 786.59 and Upper respiratory infection 465.[address] 27470- 4775 May, Encounter for Depo-Provera contraception V25.[address] 63328- 8193 May, [address] 34831- 2242 May, [address] 31291- 9944 May, Spinal stenosis of lumbar region with radiculopathy 724.02 ; Bulging of intervertebral disc between L4 and L5 722.10 ; GERD ( gastroesophageal reflux disease) 530.81 ; Chronic pain 338.29 ; Declining mobility 799.89 and Epigastric pain 789.[address] 31942- 5196 Apr, [address] 94503- 8859 Apr, Nausea 787.02 and Heart burn 787.[address] 82851- 5423 Mar, Lumbago 724.2 ; Vitamin D deficiency 268.9 ; Anxiety 300.00 ; Allergic rhinitis 477.9 and Contraceptive surveillance V25.[address] 09335- 1089 February, 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 ; Chronic pain 338.29 and Vaginal discharge 623.[address] [place] [address]- 1671 February, [facility] [place] [facility] [address] [id number] [place] [address]- 9179 February, [facility] [place] [facility] [address] [id number] [place] [address]- 6492 Jan, [facility] [place] [facility] [address] [id number] [place] [address]- 9986 Jan, [facility] [place] [facility] [address] [id number] [place] [address]- 4833 Dec, [facility] [place] [facility] [address] [id number] [place] [address]- 3933 Dec, [facility] [place] [facility] [address] [id number] [place] [address]- 3707 Dec, [facility] [place] [facility] [address] [id number] [place] [address]- 9011 Dec, [facility] [place] [facility] [address] [id number] [place] [address]- 0346 Dec, [facility] [place] [facility] [address] [id number] [place] [address]- 2184 Dec, [facility] [place] [facility] [address] [id number] [place] [address]- 5675 Dec, [facility] [place] [facility] [address] [id number] [place] [address]- 0981 Dec, [facility] [place] [facility] [address] [id number] [place] [address]- 8358 Dec, [facility] [place] [facility] [address] [id number] [place] [address]- 8596 Dec, [facility] [place] [facility] [address] [id number] [place] [address]- 3134 Dec, [facility] [place] [facility] [address] [id number] [place] 1934 Dec, [facility] [place] [facility] [address] [id number] [place] [address] 2544 Nov, 2014 [facility] [place] [facility] [address] [id number] [place] [address] 2546 Nov, 2014 [facility] [place] [facility] [address] [id number] [place] [address] 2546 24 Nov, 2014 [facility] [place] [facility] [address] [id number] [place] [address] 2546 24 Nov, 2014 [facility] [place] [facility] [address] [id number] [place] [address] 2541 Nov, 2014 [facility] [place] [facility] [address] [id number] [place] [address] 2546 23 Nov, 2014 [facility] [place] [facility] [address] [facility] [id number] [place] [address]- 2546 16 Nov, 2014 [facility] [place] [facility] [address] [id number] [place] [address]- 2547 16 Nov, 2014 [facility] [place] [facility] [address] [id number] [place] [address]- 4547 13 Nov, 2014 [facility] [place] [facility] [address] [facility] [id number] [place] [address] 13 Nov, 2014 [facility] [place] [facility] [address] [facility] [id number] [place] [address] 13 Nov, 2014 [facility] [place] [facility] [address] [id number] [place] [address] 13 Nov, 2014 [facility] [place] [facility] [address] [id number] [place] [address] 13 Nov, 2014 [facility] [place] [facility] [address] [id number] [place] [address] 13 Nov, 2014 [facility] [place] [facility] [address] [facility] [id number] [place] [address] 13 Nov, 2014 [facility] [place] [facility] [address] [id number] [place] [address] 13 Nov, 2014 [facility] [place] [facility] [address] [id number] [place] [address] Nov, 2014 [facility] [place] [facility] [address] [id number] [place] [address] Nov, 2014 [facility] [place] [facility] [address] [id number] [place] [address] Nov, 2014 [facility] [place] [facility] [address] [id number] [place] [address] Nov, 2014 [facility] [place] [facility] [address] [id number] [place] [address] Nov, 2014 [facility] [place] [facility] [address] [facility] [id number] [place] [address] Nov, 2014 [facility] [place] [facility] [address] [facility] [id number] [place] [address] Nov, 2014 [facility] [place] [facility] [address] [id number] [place] [address] 2019 Oct, [facility] [place] [facility] [address] [facility] [id number] [place] [address]46 Oct, [facility] [place] [facility] [address] [facility] [id number] [place] [address] 0098 Oct, [facility] [place] [facility] [address] [id number], [place] [address] Oct, [facility] [place] [facility] [address] [id number] [place] [address] 8780 Oct, [facility] [place] [facility] [address] [id number] [place] [address] 2236 Oct, [facility] [place] [facility] [address] [id number] [place] [address]- 7537 Oct, [facility] [place] [facility] [address] [id number], [place] [address] Oct, [facility] [place] [facility] [address] [id number] [place] [address]- 9234 Oct, [facility] [place] [facility] [address] [id number] [place] [address]- 7907 Oct, [facility] [place] [facility] [address] [id number] [place] [address]- 4237 Oct, [facility] [place] [facility] [address] [id number] [place] [address]- 8275 Oct, [facility] [place] [facility] [address] [id number] [place] [address]- 8256 Oct, [facility] [place] [facility] [address] [id number] [place] [address]- 6242 Oct, [facility] [place] [facility] [address] [id number] [place] [address]- 1517 Oct, [facility] [place] [facility] [address] [id number] [place] [address]- 7969 Oct, [facility] [place] [facility] [address] [id number] [place] [address]- 5669 Oct, [facility] [place] [facility] [address] [id number] [place] [address]- 5089 Oct, [facility] [place] [facility] [address] [id number] [place] [address]- 4258 Oct, [facility] [place] [facility] [address] [id number] [place] [address]- 8175 Oct, [facility] [place] [facility] [address] [id number] [place] [address]- 0589 Oct, [facility] [place] [facility] [address] [id number] [place] [address]- 2721 Sep, [facility] [place] [facility] [address] [id number] [place] [address]- 9054 Sep, [facility] [place] [facility] [address] [id number] [place] [address]- 4235 18 Sep, 2014 [facility] [place] [facility] [address] [id number] [place] [address]- 6476 18 Sep, 2014 [facility] [place] [facility] [address] [id number] [place] [address]- 9736 17 Sep, 2014 [facility] [place] [facility] [address] [id number] [place] [address]- 9516 17 Sep, 2014 [facility] [place] [facility] [address] [id number] [place] [address]- 9157 15 Sep, 2014 [facility] [place] [facility] [address] [id number] [place] [address]- 6433 15 Sep, 2014 [facility] [place] [facility] [address] [id number] [place] [address]- 8216 12 Sep, 2014 [facility] [place] [facility] [address] [id number] [place] [address]- 2922 12 Sep, 2014 [facility] [place] [facility] [address] [id number] [place] [address]- 6886 11 Sep, 2014 [facility] [place] [facility] [address] [id number] [place] [address]- 7545 11 Sep, 2014 [facility] [place] [facility] [address] [id number] [place] [address]- 2696 11 Sep, 2014 [facility] [place] [facility] [address] [id number] [place] [address]- 2345 11 Sep, 2014 [facility] [place] [facility] [address] [id number] [place] [address]- 7799 11 Sep, 2014 [facility] [place] [facility] [address] [id number] [place] [address]- 1216 11 Sep, 2014 [facility] [place] [facility] [address] [id number] [place] [address]- 6496 10 Sep, 2014 [facility] [place] [facility] [address] [id number] [place] [address]- 7883 Sep, [facility] [place] [facility] [address] [id number] [place] [address]- 3107 Sep, [facility] [place] [facility] [address] [id number] [place] [address]- 7254 Sep, [facility] [place] [facility] [address] [id number] [place] [address]- 9070 Aug, [facility] [place] [facility] [address] [id number] [place] [address]- 0365 Aug, [facility] [place] [facility] [address] [id number] [place] [address]- 0109 Aug, [facility] [place] [facility] [address] [id number] [place] [address]- 0323 Aug, [facility] [place] [facility] [address] [id number] [place] [address]- 1404 Aug, [facility] [place] [facility] [address] [id number] [place] [address]- 6686 Aug, [facility] [place] [facility] [address] [id number] [place] [address]- 9116 Aug, [facility] [place] [facility] [address] [id number] [place] [address]- 2193 Aug, [facility] [place] [facility] [address] [id number] [place] [address]- 6887 Aug, [facility] [place] [facility] [address] [id number], [place] [address]- 5737 Jul, [facility] [place] [facility] [address] [id number] [place] [address]- 2237 Jul, [facility] [place] [facility] [address] [id number] [place] [address]- 8136 Jul, [facility] [place] [facility] [address] [id number] [place] [address]- 3787 Jul, [facility] [place] [facility] [address] [id number] [place] [address]- 3656 16 Jul, 2013 [facility] [place] [facility] [address] [id number] [place] [address]- 9258 16 Jul, 2013 [facility] [place] [facility] [address] [id number] [place] [address]- 8433 13 Jul, 2013 [facility] [place] [facility] [address] [id number] [place] [address]- 4166 13 Jul, 2013 [facility] [place] [facility] [address] [id number] [place] [address]- 8992 10 Jul, 2013 [facility] [place] [facility] [address] [id number] [place] [address]- 9518 10 Jul, 2013 [facility] [place] [facility] [address] [id number] [place] [address]- 8088 10 Jul, 2013 [facility] [place] [facility] [address] [id number] [place] [address]- 7429 10 Jul, 2013 [facility] [place] [facility] [address] [id number] [place] [address]- 1379 07 Jul, 2013 [facility] [place] [facility] [address] [id number] [place] [address]- 5661 07 Jul, 2013 [facility] [place] [facility] [address] [id number] [place] [address]- 8797 30 Jun, 2013 [facility] [place] [facility] [address] [id number] [place] [address]- 2439 30 Sep, 2013 [facility] [place] [facility] [address] [id number] [place] [address]- 254 25 Sep, 2013 [facility] [place] [facility] [address] [id number] [place] [address] 2546 25 Sep, 2013 [facility] [place] [facility] [address] [id number] [place] [address]- 2546 25 Jun, 2013 [facility] [place] [facility] [address] [id number] [place] [address]- 2723 25 Jun, 2013 [facility] [place] [facility] [address] [id number] [place] [address]- 0090 24 Sep, 2013 [facility] [place] [facility] [address] [id number] [place] [address] 2546 24 Sep, 2013 [facility] [place] [facility] [address] [id number] [place] [address] 2540 22 Sep, 2013 [facility] [place] [facility] [address] [id number] [place] [address] 2542 22 Sep, 2013 [facility] [place] [facility] [address] [id number] [place] [address] 2540 17 Sep, 2013 [facility] [place] [facility] [address] [id number] [place] [address]- 9028 17 Sep, 2013 [facility] [place] [facility] [address] [id number] [place] [address]- 2236 16 Jun, 2013 [facility] [place] [facility] [address] [id number] [place] [address]- 7287 16 Jun, 2013 [facility] [place] [facility] [address] [id number] [place] [address]- 8851 15 Jun, 2013 [facility] [place] [facility] [address] [id number] [place] [address]- 2540 15 Sep, 2013 [facility] [place] [facility] [address] [id number] [place] [address]- 4684 12 Jun, 2013 [facility] [place] [facility] [address] [id number] [place] [address]- 2544 12 Sep, 2013 [facility] [place] [facility] [address] [id number] [place] [address] 2542 11 Jun, 2013 [facility] [place] [facility] [address] [id number] [place] [address] 2546 11 Sep, 2013 [facility] [place] [facility] [address] [id number] [place] [address]- 254 11 Sep, 2013 [facility] [place] [facility] [address] [id number] [place] [address]- 0998 Jun, [facility] [place] [facility] [address] [id number] [place] [address]- 9530 Jun, [facility] [place] [facility] [address] [id number] [place] [address]- 8751 Jun, [facility] [place] [facility] [address] [id number] [place] [address]- 3685 Jun, [facility] [place] [facility] [address] [id number] [place] [address]- 8478 Jun, [facility] [place] [facility] [address] [id number] [place] [address]- 7651 May, [facility] [place] [facility] [address] [id number] [place] [address]- 2256 May, [facility] [place] [facility] [address] [id number] [place] [address]- 6072 May, [facility] [place] [facility] [address] [id number] [place] [address]- 8820 May, [facility] [place] [facility] [address] [id number] [place] [address]- 5179 May, [facility] [place] [facility] [address] [id number] [place] [address]- 3213 May, [facility] [place] [facility] [address] [id number] [place] [address]- 5642 May, [facility] [place] [facility] [address] [id number] [place] [address]- 6549 May, [facility] [place] [facility] [address] [id number] [place] [address]- 9935 May, [facility] [place] [facility] [address] [id number] [place] [address]- 2198 May, [facility] [place] [facility] [address] [id number] [place] [address]- 6057 May, [facility] [place] [facility] [address] [id number] [place] [address]- 2589 May, [facility] [address] [id number] [place] [address]- 4888 May, [facility] [place] [facility] [address] [id number] [place] [address]- 8122 Apr, [facility] [place] [facility] [address] [id number] [place] [address]- 2564 Apr, [facility] [place] [facility] [address] [id number] [place] [address]- 1904 Apr, [facility] [place] [facility] [address] [id number] [place] [address]- 6165 Apr, [facility] [place] [facility] [address] [id number] [place] [address]- 1634 Apr, [facility] [address] [id number] [place] [address]- 3863 Mar, [facility] [place] [facility] [address] [id number] [place] [address]- 0146 Mar, [facility] [place] [facility] [address] [id number] [place] [address]- 6709 Mar, [facility] [address] [id number] [place] [address]- 8940 February, [facility] [place] [facility] [address] [id number] [place] [address]- 6600 February, [facility] [place] [facility] [address] [id number] [place] [address]- 1365 February, [facility] [place] [facility] [address] [id number] [place] [address]- 3882 February, [facility] [place] [facility] [address] [id number] [place] [address]- 7300 February, [facility] [place] [facility] [address] [id number] [place] [address]- 5380 February, [facility] [place] [facility] [address] [id number] [place] [address]- 8983 February, [facility] [place] [facility] [address] [id number] [place] [address]- 3270 February, [facility] [place] [facility] [address] [id number] [place] [address]- 6297 February, [facility] [place] [facility] [address] [id number] [place] [address]- 3429 Jan, [facility] [place] [facility] [address] [id number] [place] [address]- 8784 Jan, [facility] [place] [facility] [address] [id number] [place] [address]- 6560 Jan, [facility] [place] [facility] [address] [id number] [place] [address]- 3073 Jan, [facility] [place] [facility] [address] [id number] [place] [address]- 2936 Jan, [facility] [place] [facility] [address] [id number] [place] [address]- 9505 Dec, [facility] [place] [facility] [address] [id number] [place] [address]- 0443 Dec, [facility] [place] [facility] [address] [id number] [place] [address]- 3356 Dec, [facility] [place] [facility] [address] [id number], [place] [address]- 8091 Dec, [facility] [place] [facility] [address] [id number] [place] [address]- 0480 Dec, [facility] [place] [facility] [address] [id number] [place] [address]- 2502 Nov, [facility] [place] [facility] [address] [id number] [place] [address]- 8141 Nov, [facility] [place] [facility] [address] [id number], [place] [address]- 8749 Nov, [facility] [place] [facility] [address] [id number] [place] [address]- 0162 Nov, [facility] [place] [facility] [address] [id number] [place] [address]- 5294 Oct, [facility] [place] [facility] [address] [id number] [place] [address]- 1142 Oct, [facility] [place] [facility] [address] [id number] [place] [address]- 7245 Oct, [facility] [place] [facility] [address] [id number] [place] [address]- 1275 Oct, [facility] [place] [facility] [address] [id number] [place] [address]- 2211 Oct, [facility] [place] [facility] [address] [id number] [place] [address]- 4169 Oct, [facility] [place] [facility] [address] [id number] [place] [address]- 7037 Oct, [facility] [place] [facility] [address] [id number] [place] [address]- 8032 Oct, [facility] [place] [facility] [address] [facility] [id number] [place] [address]- 7944 Oct, [facility] [place] [facility] [address] [id number] [place] [address]- 2617 Oct, [facility] [place] [facility] [address] [id number], [place] [address]- 4571 Aug, [facility] [place] [facility] [address] [id number] [place] [address]- 9504 Aug, [facility] [place] [facility] [address] [facility] [id number] [place] [address]- 2576 Jul, [facility] [place] [facility] [address] [facility] [id number], [place] [address]- 0314 Jul, [facility] [place] [facility] [address] [id number] [place] [address]- 7035 Jul, [facility] [address] [id number] [place] [address]- 1852 Jul, [facility] [place] [facility] [address] [id number] [place] [address]- 9710 Jul, [facility] [place] [facility] [address] [id number] [place] [address]- 6361 Jul, [facility] [place] [facility] [address] [id number] [place] [address]- 6926 Apr, [facility] [place] [facility] [address] [id number] [place] [address]- 0086 Dec, [facility] [address] [id number] [place] [address]- 0878 Nov, [facility] [place] [facility] [address] [id number] [place] [address]- 1638 Nov, [facility] [address] [id number] [place] [address]- 0808 Nov, [facility] [address] [facility] [id number] [place] [address]- 7028 Oct, [facility] [address] [id number] [place] [address]- 4618 Sep, [facility] [place] [facility] [address] [id number] [place] [address]- 1109 Sep, [facility] [place] [facility] [address] [id number] [place] [address]- 5294 Sep, [facility] [place] [facility] [address] [id number] [place] [address]- 8651 Sep, [facility] [place] [facility] [address] [id number] [place] [address]- 9901 Aug, [facility] [place] [facility] [address] [id number] [place] [address]- 3270 Aug, [facility] [place] [facility] [address] [id number] [place] [address]- 4516 Jul, [facility] [place] [facility] [address] [id number] [place]56 Jul, [facility] [place] [facility] [address] [id number] [place] [address]- 7856 28 Jun, 2012 [facility] [place] [facility] [address] [id number] [place] [address]- 5732 26 Jun, 2012 [facility] [place] [facility] [address] [id number] [place] [address]- 5050 24 Jun, 2012 [facility] [place] [facility] [address] [id number] [place] [address]- 3869 24 Jun, 2012 [facility] [place] [facility] [address] [id number] [place] [address]- 6715 Jun, [facility] [place] [facility] [address] [id number] [place] [address]- 8202 31 Apr, 2012 [facility] [place] [facility] [address] [id number] [place] [address]- 4435 30 Apr, 2012 [facility] [place] [facility] [address] [id number] [place] [address]- 4833 Apr, [facility] [place] [facility] [address] [id number] [place] [address]- 4917 Mar, [facility] [place] [facility] [address] [id number] [place] [address]- 5305 Mar, [facility] [place] [facility] [address] [id number] [place] [address]- 7220 Mar, [facility] [place] [facility] [address] [id number] [place] [address]362 February, [facility] [place] [facility] [address] [id number] [place] [address]- 0077 Jan, [facility] [place] [facility] [address] [id number] [place] [address]- 6168 Dec, [facility] [address] [id number] [place] [address]- 5939 Dec, [facility] [place] [facility] [address] [id number] [place] [address]- 4251 20 Dec, 2011 [facility] [address] [id number] [place] [address]- 4605 19 Dec, 2011 [facility] [place] [facility] [address] [id number] [place] [address]- 2353 Dec, [facility] [address] [id number] [place] [address]- 4928 14 Nov, 2011 [facility] [place] [facility] [address] [id number] [place] [address]- 7472 13 Nov, 2011 [facility] [place] [facility] [address] [id number] [place] [address]- 3240 Oct, [facility] [address] [id number] [place] [address]- 9773 Oct, [facility] [address] [id number] [place] [address]- 1605 Oct, [facility] [address] [id number] [place] [address]- 7130 Sep, [facility] [place] [facility] [address] [id number] [place] [address]- 8850 Aug, [facility] [place] [facility] [address] [id number] [place] [address]- 6037 Aug, [facility] [place] [facility] [address] [id number] [place] [address]- 6846 Jul, [facility] [place] [facility] [address] [id number] [place] [address]- 9336 Jul, [facility] [place] [facility] [address] [id number] [place] [address]- 3412 19 Jul, 2011 [facility] [place] [facility] [address] [id number] [place] [address]- 6577 13 Jan, 2011 [facility] [place] [facility] [address] [id number] [place] [address]- 5180 29 Sep, 2010 [facility] [place] [facility] [address] [id number] [place] [address]- 2863 27 Sep, 2010 [facility] [place] [facility] [address] [id number] [place] [address] Sep, [facility] [place] [facility] [address] [id number] [place] [address] Sep, [facility] [place] [facility] [address] [id number] [place] [address] 06 Sep, 2010 [facility] [place] [facility] [address] [id number] [place] [address] Aug, [facility] [place] [facility] [address] [id number] [place] [address] 16 Aug, 2010 [facility] [place] [facility] [address] [id number] [place] [address] 08 Aug, 2010 [facility] [place] [facility] [address] [id number], [place] [address] Jul, [facility] [place] [facility] [address] [id number], [place] [address] Jul, [facility] [place] [facility] [address] [id number], [place] [address] Jul, [facility] [place] [facility] [address] [id number] [place] [address] 11 May, 2010 [facility] [place] [facility] [address] [id number], [place] [address] 13 Apr, 2010 [facility] [place] [facility] [address] [id number] [place] [address] 18 Dec, 2009 [facility] [place] [facility] [address] [facility] [id number] [place] [address] Sep, [facility] [address] [id number], [place] [address] Sep, [facility] [address] [id number], [place] [address] Aug, [facility] [address] [id number], [place] [address] Aug, [facility] [address] [id number], [place] [address] Jul, [facility] [address] [id number] [address] Mar, IMMUNIZATIONS No Known Immunizations SOCIAL HISTORY Never Assessed REASON FOR VISIT PA for Lidocaine Patch PLAN OF CARE VITAL SIGNS MEDICATIONS Unknown [...]
--- OUTSIDE RECORDS SUMMARY | 2018-10-08 19:56 | XMS REPORT ---
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 570570106 Problem Edema of both feet R60.0 Active 298917673 Problem Tobacco abuse Z72.0 Active 76171206 Problem Chronic migraine G43.709 Active 68674549 Problem Mixed hyperlipidemia E78.2 Active 695984783 Problem Spinal stenosis, lumbar region M48.06 Active 79492803 Problem Anxiety F41.9 Active 92282693 Problem Radiculopathy of lumbar region M54.16 Active 821663462 Problem Bulging lumbar disc M51.26 Active 695437186 Problem Asthma J45.909 Active 713486805 Problem Essential hypertension I10 Active 76947720 ALLERGIES No Information ENCOUNTERS Encounter Location Date Diagnosis [place] [id number] [place] [address] 82036- 8542 Mar, HSV (herpes simplex virus) infection B00.9 ; Anxiety F41.9 and Chronic pain G89.29 [facility] [address] [place] [id number] [place] [address] 80680- 1849 Mar, [facility] [id number] [place] [address] 26550- 0279 Mar, Chronic pain G89.29 [place] [address] 56240- 9759 February, Chronic pain G89.29 [place] [address] 30838- 1932 Jan, Chronic pain G89.29 [place] [address] 05489- 3429 Jan, [facility] 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 Z79.4 [place] [address] 02182- 2388 Jan, Encounter for Depo-Provera contraception Z30.42 [place] [address] 20012- 4091 Jan, [place] [address] 07414- 6357 Jan, Chronic pain G89.29 and Anxiety F41.9 [place] [address] 11096- 2746 Jan, [place] [address] 46170- 8520 Dec, [place] [address] 06975- 4590 Dec, Gastroesophageal reflux disease without esophagitis K21.9 and Anxiety F41.9 [place] [address] 78181- 7519 Dec, Essential hypertension I10 ; Mixed hyperlipidemia E78.2 ; Type 2 diabetes mellitus with diabetic neuropathy, unspecified E11.40 ; 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 ; Chronic pain G89.29 ; HSV (herpes simplex virus) infection B00.9 ; Anxiety F41.9 and Gastroesophageal reflux disease without esophagitis K21.9 [place] [address] 75776- 6784 07 Dec, 2017 Chronic pain G89.29 and Chronic migraine G43.709 [place] [address] [place] [address]- 3596 Nov, [place] [address] [place] [id number] [place] [address] 67365- 3511 Nov, Essential hypertension I10 and Chronic pain G89.29 [place] [address] [place] [id number] [place] [address] 95349- 5524 Nov, Chronic pain G89.29 ; Essential hypertension I10 and Type 2 diabetes mellitus without complication E11.9 [place] [address] 72854- 9970 Oct, Chronic pain G89.29 [place] [address] 29773- 5440 Oct, [place] [address] [place] [id number] [place] [address] 83955- 6498 Sep, Type 2 diabetes mellitus without complication E11.9 ; Essential hypertension I10 ; terminal superintendent (current) use of insulin Z79.4 ; Chronic migraine G43.709 ; Chronic pain G89.29 and Acute non-recurrent maxillary sinusitis J01.00 [place] [address] [place] [id number] [place] [address] 00826- 0008 Sep, Encounter for Depo-Provera contraception Z30.42 [place] [address] [place] [id number] [place] [address] 53978- 2738 Sep, Chronic pain G89.29 and Radiculopathy of lumbar region M54.16 [place] [address] [place] [id number] [place] [address] 40589- 0823 Sep, [place] [address] 69516- 8927 Sep, [place] [address] [place] [id number] [place] [address] 47783- 6946 Aug, Type 2 diabetes mellitus without complication E11.9 [place] [address] [place] [id number] [place] [address] 25377- 8342 Aug, [facility] [address] [facility] [id number], [place] [address] 2546 Aug, Radiculopathy of lumbar region M54.16 and Chronic pain G89.29 [facility] [address] [id number], [place] [address] 2546 Aug, Type 2 diabetes mellitus without complication E11.9 [facility] [address] [id number], [place] [address] 2546 Aug, Type 2 diabetes mellitus without complication E11.9 [facility] [address] [id number], [place] [address]- 7716 Jul, Type 2 diabetes mellitus without complication E11.9 [facility] [address] [facility] [id number], [place] [address]- 1746 Jul, [facility] [address] [facility] [id number], [place] [address]- 6663 Jul, Chronic pain G89.29 [facility] [address] [id number], [place] [address] 2546 Jul, [facility] [address] [facility] [id number], [place] [address]- 7336 Jul, [facility] [address] [facility] [id number], [place] [address]- 4234 Jul, Type 2 diabetes mellitus without complication E11.9 [facility] [address] [facility] [id number], [place] [address]- 5296 Jul, [facility] [address] [facility] [id number], [place] [address]- 2545 Jul, Type 2 diabetes mellitus without complication E11.9 [facility] [address] [facility] [id number], [place] [address] 2546 Jul, [facility] [address] [facility] [id number], [place] [address]- 5676 Jul, [facility] [address] [place] [id number] [place] [address] 55020- 1740 Jul, [place] [address] 38703- 9487 Jun, Type 2 diabetes mellitus without complication E11.9 [facility] [address] [place] [id number] [place] [address] 28613- 9916 Jun, Chronic migraine G43.709 ; Type 2 diabetes mellitus without complication E11.9 ; Calculus of right kidney N20.0 ; Yeast dermatitis B37.2 and HSV (herpes simplex virus) infection B00.9 [place] [address] 56928- 1591 Jun, Type 2 diabetes mellitus without complication E11.9 [place] [address] [place] [id number] [place] [address] 22995- 5404 Jun, [place] [address] 79936- 8231 Jun, Radiculopathy of lumbar region M54.16 and Chronic pain G89.29 [place] [address] [place] [id number] [place] [address] 22538- 9360 Jun, Encounter for Depo-Provera contraception Z30.42 [place] [address] [place] [id number] [place] [address] 09522- 5433 Jun, Type 2 diabetes mellitus without complication E11.9 [place] [address] [place] [id number] [place] [address] 58217- 1852 Jun, [facility] [address] [place] [id number] [place] [address] 40004 -9086 May, Acute nasopharyngitis (common cold) J00 [facility] [address] [place] [id number] [place] [address] 93401- 4784 May, Chronic pain G89.29 [facility] [address] [place] [id number] [place] [address] 52161- 7652 May, Headache following lumbar puncture G97.1 [place] [address] [place] [id number] [place] [address] 07167- 0889 May, Radiculopathy of lumbar region M54.16 [place] [address] [place] [id number] [place] [address] 34379- 3658 Apr, [place] [address] [place] [id number] [place] [address] 70845- 1544 Apr, Type 2 diabetes mellitus without complication E11.9 ; Chronic pain G89.29 ; Essential hypertension I10 ; Radiculopathy of lumbar region M54.16 ; Spinal stenosis, lumbar region M48.06 ; Gastroesophageal reflux disease without esophagitis K21.9 ; HSV (herpes simplex virus) infection B00.9 ; Mixed hyperlipidemia E78.2 ; Anxiety F41.9 and Asthma J45.909 [place] [address] [place] [id number] [place] [address] 89715- 1021 Apr, Encounter for Depo-Provera contraception Z30.42 [place] [address] [place] [id number] [place] [address] 82421- 8989 Apr, Chronic pain G89.29 and Anxiety F41.9 [place] [address] [place] [id number] [place] [address] 02721- 4896 Mar, [place] [address] [place] [id number] [place] [address] 19879- 9926 Mar, [place] [address] [place] [id number] [place] [address] 00296- 4690 Mar, Mixed hyperlipidemia E78.2 [place] [address] [place] [id number] [place] [address] 92073- 7587 Mar, Type 2 diabetes mellitus without complication E11.9 ; Chronic pain G89.29 ; Essential hypertension I10 ; Radiculopathy of lumbar region M54.16 ; Spinal stenosis, lumbar region M48.06 ; Gastroesophageal reflux disease without esophagitis K21.9 ; HSV (herpes simplex virus) infection B00.9 ; Mixed hyperlipidemia E78.2 and Anxiety F41.9 [facility] [address] [address]- 4861 Mar, [facility] [address] [place] [id number] [place] [address] 18486- 6038 Mar, [facility] [address] [place] [id number] [place] [address] 36534- 9151 Mar, [facility] [address] [place] [id number] [place] [address] 78145- 9033 February, Chronic pain G89.29 [facility] [address] [place] [id number] [place] [address] 89497- 4017 February, [facility] [address] [place] [id number] [place] [address] 22690- 9377 Jan, Chronic pain G89.29 [facility] [address] [place] [id number] [place] [address] 88175- 3376 Jan, Type 2 diabetes mellitus without complication E11.9 [facility] [address] [place] [id number] [place] [address] 55332- 9979 Jan, [facility] [address] [place] [id number] [place] [address] 12213- 0091 Jan, [facility] [address] [place] [id number] [place] [address] 51609- 3078 Jan, [facility] [address] [place] [id number] [place] [address] 00344- 9202 Jan, Type 2 diabetes mellitus without complication [...] J01.00 and Encounter for Depo-Provera contraception Z30.42 [place] [address] [place] [id number] [place] [address] 38890- 0189 Dec, Chronic pain G89.29 [place] [address] 86570- 3548 Dec, Abnormal ankle brachial index (BERNARDINO) R68.89 [place] [address] [place] [id number] [place] [address] 68459- 7844 Dec, [place] [address] 13568- 2818 Dec, Routine gynecological examination Z01.419 ; Chronic [...] virus) infection B00.9 and Allergic rhinitis 477.9 [place] [address] [place] [id number] [place] [address] 65366- 4269 28 Nov, 2016 Chronic pain G89.29 [place] [address] 21462- 1924 02 Nov, 2016 Chronic pain G89.29 ; [...] mucoid otitis media of both ears H65.113 [place] [address] [place] [id number] [place] [address] 65643- 8764 Oct, [place] [address] [place] [id number] [place] [address] 71165- 7029 Oct, Chronic pain G89.29 [place] [address] [place] [id number] [place] [address] 79229- 5947 Oct, Chronic pain G89.29 [place] [address] 96221- 9414 Sep, Chronic pain G89.29 ; Type 2 diabetes mellitus without complication E11.9 ; Essential hypertension I10 ; Radiculopathy of lumbar region M54.16 ; Spinal stenosis, lumbar region M48.06 ; Gastroesophageal reflux disease without esophagitis K21.9 ; Encounter for surveillance of injectable contraceptive Z30.42 ; Bilateral cold feet R20.9 ; Pain of left foot M79.672 and Pain in right foot M79.671 [place] [address] 33562- 9200 Sep, [place] [address] 10496- 8276 Aug, [place] [address] 92454- 1771 Aug, [place] [address] 66659- 9377 Aug, Chronic pain G89.29 ; Type 2 diabetes mellitus without complication E11.9 ; Essential hypertension I10 ; Rash and nonspecific skin eruption R21 and Upper respiratory infection, acute J06.9 [place] [address] 86744- 9377 Aug, [place] [address] 62738- 3824 Aug, [place] [address] 55741- 0457 Jul, [address] 03061- 0266 Jul, Dysuria R30.0 ; Encounter for Depo-Provera contraception Z30.42 ; Herpes simplex B00.9 ; Nausea & vomiting R11.2 and Asthma J45.909 [facility] [address] [place] [id number] [place] [address] 17224- 3489 21 Jun, 2016 Dysuria R30.0 [facility] [address] [place] [id number] [place] [address] 91728- 8613 19 Jun, 2016 Dysuria R30.0 [facility] [address] [place] [id number] [place] [address] 45733- 1969 15 Jun, 2016 [facility] [address] [place] [id number] [place] [address] 12890- 8578 13 Jun, 2016 [facility] [address] [place] [id number] [place] [address] 34431- 6859 May, [facility] [address] [place] [id number] [place] [address] 74409- 8003 May, [facility] [address] [place] [id number] [place] [address] 03293- 8355 May, Chronic pain G89.29 ; Essential hypertension I10 ; Type 2 diabetes mellitus without complication E11.9 ; Edema of both feet R60.0 and Rash and nonspecific skin eruption R21 [place] [address] [place] [address] [place] [address] 95679- 6142 Apr, [facility] [address] [place] [id number] [place] [address] 61435- 5037 Mar, Carpal tunnel syndrome, left upper limb G56.02 and Carpal tunnel syndrome, right upper limb G56.01 [facility] [address] [place] [id number] [place] [address] 96985- 5260 Mar, [facility] [address] [place] [id number] [place] [address] 95679- 8498 Mar, Encounter for Depo-Provera contraception Z30.42 [facility] [address] [place] [id number] [place] [address] 97928- 3248 February, [facility] [address] [place] [id number] [place] [address] 13100- 5875 February, [place] [address] [place] [address] [place] [address] 51467- 8181 February, Chronic pain G89.29 ; Essential hypertension I10 ; Type 2 diabetes mellitus without complication E11.9 ; HSV (herpes simplex virus) infection B00.9 ; Anxiety F41.9 ; Hypersomnia G47.10 ; Tobacco abuse Z72.0 ; Hand pain, left M79.642 ; Hand pain, right M79.641 ; Left foot pain M79.672 and Heart palpitations R00.2 [place] [address] 15540- 6727 Jan, [place] [address] 84767- 9292 Jan, [place] [address] 68700- 6757 Jan, [place] [address] 01628- 6645 Jan, [place] [address] 62442- 7526 Jan, Upper respiratory infection J06.9 and Type 2 diabetes mellitus without complication E11.9 [place] [address] [place] [id number] [place] [address] 43105- 8903 Dec, [place] [address] 43128- 8365 Dec, Chronic pain G89.29 ; Essential hypertension I10 ; Type 2 diabetes mellitus without complication E11.9 ; HSV (herpes simplex virus) infection B00.9 ; Anxiety F41.9 ; Upper respiratory infection J06.9 ; Hypersomnia G47.10 and Tobacco abuse Z72.0 [place] [address] 39066- 6110 Dec, Encounter for Depo-Provera contraception Z30.42 [place] [address] 72381- 7367 Dec, [place] [address] [place] [address] [place] [address] 99130- 3590 Dec, Chronic pain G89.29 ; Sinusitis J32.9 ; Snoring R06.83 and Daytime hypersomnia G47.19 [place] [address] [place] [address] [place] [address] 09427- 4779 Nov, HSV (herpes simplex virus) infection B00.9 ; Encounter for Papanicolaou smear for cervical cancer screening Z12.4 ; Screening for STD sexually transmitted disease Z11.3 and Bartholin's gland cyst N75.0 [place] [address] 81845- 5736 Nov, [place] [address] 07811- 0763 Nov, [place] [address] 41975- 3663 Nov, Essential hypertension I10 ; Type 2 diabetes mellitus without complication E11.9 ; HSV (herpes simplex virus) infection B00.9 ; Spinal stenosis, lumbar region M48.06 and Vaginal yeast infection B37.3 [place] [address] [place] [id number] [place] [address] 12170- 3741 Nov, [place] [address] [place] [id number] [place] [address] 72683- 9305 Nov, [place] [address] [place] [id number] [place] [address] 30394- 2816 Oct, [place] [address] [place] [id number] [place] [address] 64485- 5989 Oct, HSV (herpes simplex virus) infection B00.9 ; Yeast infection B37.9 ; Change in bowel habit R19.4 ; Nausea & vomiting R11.2 and Gastroesophageal reflux disease without esophagitis K21.9 [place] [address] [place] [id number] [place] [address] 76860- 4999 Oct, [address] 17648- 8414 Oct, Type 2 diabetes mellitus without complication E11.9 ; Essential hypertension I10 and Acute maxillary sinusitis, recurrence not specified J01.[address] 94933- 6184 Oct, [address] 15122- 3050 Oct, [address] 75670- 5890 Oct, Exposure to head lice Z20.7 ; Blood glucose abnormal R73.09 ; Boil of buttock L02.32 and Type 2 diabetes mellitus without complication E11.[address] 57753- 0835 Oct, [address] 37300- 1948 Sep, [address] 79253- 6382 Sep, [address] 92363- 6948 Aug, Encounter for Depo-Provera contraception Z30.[address] 23303- 1131 Aug, Anxiety F41.9 ; Spinal stenosis, lumbar region M48.06 ; Radiculopathy of lumbar region M54.16 ; Asthma J45.909 ; GERD (gastroesophageal reflux disease) K21.9 ; Essential hypertension I10 and Long-term use of high- risk medication Z79.[address] 39308- 7467 Jul, [address] 84838- 3803 Jun, Hemorrhoid 455.[address] [id number] [place] [address]- 8618 Jun, [place] [address] 47598- 9281 Jun, Anxiety 300.00 ; Asthma 493.90 ; Hyperhidrosis 705.21 ; Chest discomfort 786.59 and Upper respiratory infection 465.[address] 71282- 9980 May, Encounter for Depo-Provera contraception V25.[address] 83438- 7025 May, [address] 55258- 7062 May, [address] 64412- 0814 May, Spinal stenosis of lumbar region with radiculopathy 724.02 ; Bulging of intervertebral disc between L4 and L5 722.10 ; GERD ( gastroesophageal reflux disease) 530.81 ; Chronic pain 338.29 ; Declining mobility 799.89 and Epigastric pain 789.[address] 62610- 4285 Apr, [address] 21239- 7143 Apr, Nausea 787.02 and Heart burn 787.[address] 41247- 2314 Mar, Lumbago 724.2 ; Vitamin D deficiency 268.9 ; Anxiety 300.00 ; Allergic rhinitis 477.9 and Contraceptive surveillance V25.[address] 71957- 5306 February, 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 ; Chronic pain 338.29 and Vaginal discharge 623.[address] [place] [address]- 6253 February, [facility] [place] [facility] [address] [id number] [place] [address]- 9695 February, [facility] [place] [facility] [address] [id number] [place] [address]- 1010 Jan, [facility] [place] [facility] [address] [id number] [place] [address]- 9515 Jan, [facility] [place] [facility] [address] [id number] [place] [address]- 2207 Dec, [facility] [place] [facility] [address] [id number] [place] [address]- 0096 Dec, [facility] [place] [facility] [address] [id number] [place] [address]- 0357 Dec, [facility] [place] [facility] [address] [id number] [place] [address]- 1638 Dec, [facility] [place] [facility] [address] [id number] [place] [address]- 6622 Dec, [facility] [place] [facility] [address] [id number] [place] [address]- 4725 Dec, [facility] [place] [facility] [address] [id number] [place] [address]- 5862 Dec, [facility] [place] [facility] [address] [id number] [place] [address]- 8666 Dec, [facility] [place] [facility] [address] [id number] [place] [address]- 3223 Dec, [facility] [place] [facility] [address] [id number] [place] [address]- 6681 Dec, [facility] [place] [facility] [address] [id number] [place] [address]- 4532 Dec, [facility] [place] [facility] [address] [id number] [place] 6277 Dec, [facility] [place] [facility] [address] [id number] [place] [address] Nov, 2014 [facility] [place] [facility] [address] [id number] [place] [address] Nov, 2014 [facility] [place] [facility] [address] [id number] [place] [address] 24 Nov, 2014 [facility] [place] [facility] [address] [id number] [place] [address] 24 Nov, 2014 [facility] [place] [facility] [address] [id number] [place] [address] Nov, 2014 [facility] [place] [facility] [address] [id number] [place] [address] 23 Nov, 2014 [facility] [place] [facility] [address] [facility] [id number] [place] [address] 16 Nov, 2014 [facility] [place] [facility] [address] [id number] [place] [address] 16 Nov, 2014 [facility] [place] [facility] [address] [id number] [place] [address] 13 Nov, 2014 [facility] [place] [facility] [address] [facility] [id number] [place] [address] 13 Nov, 2014 [facility] [place] [facility] [address] [facility] [id number] [place] [address] 13 Nov, 2014 [facility] [place] [facility] [address] [id number] [place] [address] 13 Nov, 2014 [facility] [place] [facility] [address] [id number] [place] [address] 13 Nov, 2014 [facility] [place] [facility] [address] [id number] [place] [address] 13 Nov, 2014 [facility] [place] [facility] [address] [facility] [id number] [place] [address] 13 Nov, 2014 [facility] [place] [facility] [address] [id number] [place] [address] 13 Nov, 2014 [facility] [place] [facility] [address] [id number] [place] [address] Nov, 2014 [facility] [place] [facility] [address] [id number] [place] [address] Nov, 2014 [facility] [place] [facility] [address] [id number] [place] [address] Nov, 2014 [facility] [place] [facility] [address] [id number] [place] [address] Nov, 2014 [facility] [place] [facility] [address] [id number] [place] [address] Nov, 2014 [facility] [place] [facility] [address] [facility] [id number] [place] [address] Nov, 2014 [facility] [place] [facility] [address] [facility] [id number] [place] [address] Nov, 2014 [facility] [place] [facility] [address] [id number] [place] [address] Oct, [facility] [place] [facility] [address] [facility] [facility] [id number] [place] [address] Oct, [facility] [place] [facility] [address] [facility] [id number] [place] [address] Oct, [facility] [place] [facility] [address] [id number], [place] [address] Oct, [facility] [place] [facility] [address] [id number] [place] [address] 4385 Oct, [facility] [place] [facility] [address] [id number] [place] [address]- 4525 Oct, [facility] [place] [facility] [address] [id number] [place] [address]- 2831 Oct, [facility] [place] [facility] [address] [id number], [place] [address] Oct, [facility] [place] [facility] [address] [id number] [place] [address]- 6716 Oct, [facility] [place] [facility] [address] [id number] [place] [address]- 1256 Oct, [facility] [place] [facility] [address] [id number] [place] [address]- 3158 Oct, [facility] [place] [facility] [address] [id number] [place] [address]- 9660 Oct, [facility] [place] [facility] [address] [id number] [place] [address]- 9521 Oct, [facility] [place] [facility] [address] [id number] [place] [address]- 2984 Oct, [facility] [place] [facility] [address] [id number] [place] [address]- 9746 Oct, [facility] [place] [facility] [address] [id number] [place] [address]- 6059 Oct, [facility] [place] [facility] [address] [id number] [place] [address]- 5478 Oct, [facility] [place] [facility] [address] [id number] [place] [address]- 8981 Oct, [facility] [place] [facility] [address] [id number] [place] [address]- 8314 Oct, [facility] [place] [facility] [address] [id number] [place] [address]- 0877 Oct, [facility] [place] [facility] [address] [id number] [place] [address]- 3061 Oct, [facility] [place] [facility] [address] [id number] [place] [address]- 9077 Sep, [facility] [place] [facility] [address] [id number] [place] [address]- 4720 Sep, [facility] [place] [facility] [address] [id number] [place] [address]- 3079 18 Sep, 2014 [facility] [place] [facility] [address] [id number] [place] [address]- 6856 18 Sep, 2014 [facility] [place] [facility] [address] [id number] [place] [address]- 9956 17 Sep, 2014 [facility] [place] [facility] [address] [id number] [place] [address]- 7306 17 Sep, 2014 [facility] [place] [facility] [address] [id number] [place] [address]- 6030 15 Sep, 2014 [facility] [place] [facility] [address] [id number] [place] [address]- 9246 15 Sep, 2014 [facility] [place] [facility] [address] [id number] [place] [address]- 6681 12 Sep, 2014 [facility] [place] [facility] [address] [id number] [place] [address]- 0124 12 Sep, 2014 [facility] [place] [facility] [address] [id number] [place] [address]- 1734 11 Sep, 2014 [facility] [place] [facility] [address] [id number] [place] [address]- 1895 11 Sep, 2014 [facility] [place] [facility] [address] [id number] [place] [address]- 2341 11 Sep, 2014 [facility] [place] [facility] [address] [id number] [place] [address]- 5485 11 Sep, 2014 [facility] [place] [facility] [address] [id number] [place] [address]- 2743 11 Sep, 2014 [facility] [place] [facility] [address] [id number] [place] [address]- 5166 11 Sep, 2014 [facility] [place] [facility] [address] [id number] [place] [address]- 6276 10 Sep, 2014 [facility] [place] [facility] [address] [id number] [place] [address]- 4002 Sep, [facility] [place] [facility] [address] [id number] [place] [address]- 7415 Sep, [facility] [place] [facility] [address] [id number] [place] [address]- 1467 Sep, [facility] [place] [facility] [address] [id number] [place] [address]- 5616 Aug, [facility] [place] [facility] [address] [id number] [place] [address]- 5978 Aug, [facility] [place] [facility] [address] [id number] [place] [address]- 9537 Aug, [facility] [place] [facility] [address] [id number] [place] [address]- 4816 Aug, [facility] [place] [facility] [address] [id number] [place] [address]- 2266 Aug, [facility] [place] [facility] [address] [id number] [place] [address]- 7621 Aug, [facility] [place] [facility] [address] [id number] [place] [address]- 5163 Aug, [facility] [place] [facility] [address] [id number] [place] [address]- 1848 Aug, [facility] [place] [facility] [address] [id number] [place] [address]- 2228 Aug, [facility] [place] [facility] [address] [id number], [place] [address]- 7834 Jul, [facility] [place] [facility] [address] [id number] [place] [address]- 8108 Jul, [facility] [place] [facility] [address] [id number] [place] [address]- 5043 Jul, [facility] [place] [facility] [address] [id number] [place] [address]- 1446 Jul, [facility] [place] [facility] [address] [id number] [place] [address]- 4628 16 Jul, 2013 [facility] [place] [facility] [address] [id number] [place] [address]- 8553 16 Jul, 2013 [facility] [place] [facility] [address] [id number] [place] [address]- 8042 13 Jul, 2013 [facility] [place] [facility] [address] [id number] [place] [address]- 9686 13 Jul, 2013 [facility] [place] [facility] [address] [id number] [place] [address]- 6920 10 Jul, 2013 [facility] [place] [facility] [address] [id number] [place] [address]- 9230 10 Jul, 2013 [facility] [place] [facility] [address] [id number] [place] [address]- 3779 10 Jul, 2013 [facility] [place] [facility] [address] [id number] [place] [address]- 7856 10 Jul, 2013 [facility] [place] [facility] [address] [id number] [place] [address]- 3161 07 Jul, 2013 [facility] [place] [facility] [address] [id number] [place] [address]- 9041 07 Jul, 2013 [facility] [place] [facility] [address] [id number] [place] [address]- 8615 30 Jun, 2013 [facility] [place] [facility] [address] [id number] [place] [address]- 4683 30 Sep, 2013 [facility] [place] [facility] [address] [id number] [place] [address]- 2545 25 Sep, 2013 [facility] [place] [facility] [address] [id number] [place] [address] 2546 25 Sep, 2013 [facility] [place] [facility] [address] [id number] [place] [address]- 2546 25 Jun, 2013 [facility] [place] [facility] [address] [id number] [place] [address]- 3214 25 Jun, 2013 [facility] [place] [facility] [address] [id number] [place] [address]- 2183 24 Sep, 2013 [facility] [place] [facility] [address] [id number] [place] [address] 2546 24 Sep, 2013 [facility] [place] [facility] [address] [id number] [place] [address] 2542 22 Sep, 2013 [facility] [place] [facility] [address] [id number] [place] [address] 254 22 Sep, 2013 [facility] [place] [facility] [address] [id number] [place] [address] 2540 17 Sep, 2013 [facility] [place] [facility] [address] [id number] [place] [address]- 0375 17 Sep, 2013 [facility] [place] [facility] [address] [id number] [place] [address]- 0548 16 Jun, 2013 [facility] [place] [facility] [address] [id number] [place] [address]- 4951 16 Jun, 2013 [facility] [place] [facility] [address] [id number] [place] [address]- 3694 15 Jun, 2013 [facility] [place] [facility] [address] [id number] [place] [address]- 2549 15 Sep, 2013 [facility] [place] [facility] [address] [id number] [place] [address]- 9474 12 Jun, 2013 [facility] [place] [facility] [address] [id number] [place] [address]- 2541 12 Sep, 2013 [facility] [place] [facility] [address] [id number] [place] [address] 2548 11 Jun, 2013 [facility] [place] [facility] [address] [id number] [place] [address] 2546 11 Sep, 2013 [facility] [place] [facility] [address] [id number] [place] [address]- 2548 11 Sep, 2013 [facility] [place] [facility] [address] [id number] [place] [address]- 6094 Jun, [facility] [place] [facility] [address] [id number] [place] [address]- 8308 Jun, [facility] [place] [facility] [address] [id number] [place] [address]- 5428 Jun, [facility] [place] [facility] [address] [id number] [place] [address]- 6130 Jun, [facility] [place] [facility] [address] [id number] [place] [address]- 0879 Jun, [facility] [place] [facility] [address] [id number] [place] [address]- 2267 May, [facility] [place] [facility] [address] [id number] [place] [address]- 6529 May, [facility] [place] [facility] [address] [id number] [place] [address]- 4199 May, [facility] [place] [facility] [address] [id number] [place] [address]- 7204 May, [facility] [place] [facility] [address] [id number] [place] [address]- 7341 May, [facility] [place] [facility] [address] [id number] [place] [address]- 3840 May, [facility] [place] [facility] [address] [id number] [place] [address]- 4894 May, [facility] [place] [facility] [address] [id number] [place] [address]- 0509 May, [facility] [place] [facility] [address] [id number] [place] [address]- 6031 May, [facility] [place] [facility] [address] [id number] [place] [address]- 5533 May, [facility] [place] [facility] [address] [id number] [place] [address]- 4210 May, [facility] [place] [facility] [address] [id number] [place] [address]- 0506 May, [facility] [address] [id number] [place] [address]- 3960 May, [facility] [place] [facility] [address] [id number] [place] [address]- 6774 Apr, [facility] [place] [facility] [address] [id number] [place] [address]- 6426 Apr, [facility] [place] [facility] [address] [id number] [place] [address]- 9945 Apr, [facility] [place] [facility] [address] [id number] [place] [address]- 1541 Apr, [facility] [place] [facility] [address] [id number] [place] [address]- 1730 Apr, [facility] [address] [id number] [place] [address]- 6714 Mar, [facility] [place] [facility] [address] [id number] [place] [address]- 9193 Mar, [facility] [place] [facility] [address] [id number] [place] [address]- 8915 Mar, [facility] [address] [id number] [place] [address]- 5885 February, [facility] [place] [facility] [address] [id number] [place] [address]- 6762 February, [facility] [place] [facility] [address] [id number] [place] [address]- 7609 February, [facility] [place] [facility] [address] [id number] [place] [address]- 8774 February, [facility] [place] [facility] [address] [id number] [place] [address]- 4229 February, [facility] [place] [facility] [address] [id number] [place] [address]- 4219 February, [facility] [place] [facility] [address] [id number] [place] [address]- 3851 February, [facility] [place] [facility] [address] [id number] [place] [address]- 5798 February, [facility] [place] [facility] [address] [id number] [place] [address]- 6242 February, [facility] [place] [facility] [address] [id number] [place] [address]- 5870 Jan, [facility] [place] [facility] [address] [id number] [place] [address]- 7778 Jan, [facility] [place] [facility] [address] [id number] [place] [address]- 6438 Jan, [facility] [place] [facility] [address] [id number] [place] [address]- 9868 Jan, [facility] [place] [facility] [address] [id number] [place] [address]- 0674 Jan, [facility] [place] [facility] [address] [id number] [place] [address]- 0346 Dec, [facility] [place] [facility] [address] [id number] [place] [address]- 2678 Dec, [facility] [place] [facility] [address] [id number] [place] [address]- 3752 Dec, [facility] [place] [facility] [address] [id number], [place] [address]- 1552 Dec, [facility] [place] [facility] [address] [id number] [place] [address]- 1761 Dec, [facility] [place] [facility] [address] [id number] [place] [address]- 7309 Nov, [facility] [place] [facility] [address] [id number] [place] [address]- 9369 Nov, [facility] [place] [facility] [address] [id number], [place] [address]- 4968 Nov, [facility] [place] [facility] [address] [id number] [place] [address]- 2826 Nov, [facility] [place] [facility] [address] [id number] [place] [address]- 1064 Oct, [facility] [place] [facility] [address] [id number] [place] [address]- 7275 Oct, [facility] [place] [facility] [address] [id number] [place] [address]- 9855 Oct, [facility] [place] [facility] [address] [id number] [place] [address]- 8244 Oct, [facility] [place] [facility] [address] [id number] [place] [address]- 8102 Oct, [facility] [place] [facility] [address] [id number] [place] [address]- 1878 Oct, [facility] [place] [facility] [address] [id number] [place] [address]- 0897 Oct, [facility] [place] [facility] [address] [id number] [place] [address]- 5424 Oct, [facility] [place] [facility] [address] [facility] [id number] [place] [address]- 2490 Oct, [facility] [place] [facility] [address] [id number] [place] [address]- 7532 Oct, [facility] [place] [facility] [address] [id number], [place] [address]- 8325 Aug, [facility] [place] [facility] [address] [id number] [place] [address]- 6663 Aug, [facility] [place] [facility] [address] [facility] [id number] [place] [address]- 0686 Jul, [facility] [place] [facility] [address] [facility] [id number], [place] [address]- 5228 Jul, [facility] [place] [facility] [address] [id number] [place] [address]- 2631 Jul, [facility] [address] [id number] [place] [address]- 2070 Jul, [facility] [place] [facility] [address] [id number] [place] [address]- 8150 Jul, [facility] [place] [facility] [address] [id number] [place] [address]- 8701 Jul, [facility] [place] [facility] [address] [id number] [place] [address]- 9480 Apr, [facility] [place] [facility] [address] [id number] [place] [address]- 0170 Dec, [facility] [address] [id number] [place] [address]- 1379 Nov, [facility] [place] [facility] [address] [id number] [place] [address]- 5286 Nov, [facility] [address] [id number] [place] [address]- 4459 Nov, [facility] [address] [facility] [id number] [place] [address]- 2838 Oct, [facility] [address] [id number] [place] [address]- 8893 Sep, [facility] [place] [facility] [address] [id number] [place] [address]- 7224 Sep, [facility] [place] [facility] [address] [id number] [place] [address]- 4282 Sep, [facility] [place] [facility] [address] [id number] [place] [address]- 5091 Sep, [facility] [place] [facility] [address] [id number] [place] [address]- 7624 Aug, [facility] [place] [facility] [address] [id number] [place] [address]- 6569 Aug, [facility] [place] [facility] [address] [id number] [place] [address]- 5916 Jul, [facility] [place] [facility] [address] [id number] [place] 3026 Jul, [facility] [place] [facility] [address] [id number] [place] [address]- 7116 28 Jun, 2012 [facility] [place] [facility] [address] [id number] [place] [address]- 1546 26 Jun, 2012 [facility] [place] [facility] [address] [id number] [place] [address]- 5647 24 Jun, 2012 [facility] [place] [facility] [address] [id number] [place] [address]- 1706 24 Jun, 2012 [facility] [place] [facility] [address] [id number] [place] [address]- 5449 Jun, [facility] [place] [facility] [address] [id number] [place] [address]- 4847 31 Apr, 2012 [facility] [place] [facility] [address] [id number] [place] [address]- 3145 30 Apr, 2012 [facility] [place] [facility] [address] [id number] [place] [address]- 1154 Apr, [facility] [place] [facility] [address] [id number] [place] [address]- 1048 Mar, [facility] [place] [facility] [address] [id number] [place] [address]- 9431 Mar, [facility] [place] [facility] [address] [id number] [place] [address]- 4506 Mar, [facility] [place] [facility] [address] [id number] [place] 3870 February, [facility] [place] [facility] [address] [id number] [place] [address]- 4569 Jan, [facility] [place] [facility] [address] [id number] [place] [address]- 0694 Dec, [facility] [address] [id number] [place] [address]- 5123 Dec, [facility] [place] [facility] [address] [id number] [place] [address]- 5820 20 Dec, 2011 [facility] [address] [id number] [place] [address]- 9231 19 Dec, 2011 [facility] [place] [facility] [address] [id number] [place] [address]- 5375 Dec, [facility] [address] [id number] [place] [address]- 9879 14 Nov, 2011 [facility] [place] [facility] [address] [id number] [place] [address]- 1713 13 Nov, 2011 [facility] [place] [facility] [address] [id number] [place] [address]- 3809 Oct, [facility] [address] [id number] [place] [address]- 6092 Oct, [facility] [address] [id number] [place] [address]- 9837 Oct, [facility] [address] [id number] [place] [address]- 7229 Sep, [facility] [place] [facility] [address] [id number] [place] [address]- 9437 Aug, [facility] [place] [facility] [address] [id number] [place] [address] Aug, [facility] [place] [facility] [address] [id number] [place] [address] Jul, [facility] [place] [facility] [address] [id number] [place] [address] Jul, [facility] [place] [facility] [address] [id number] [place] [address] 19 Jul, 2011 [facility] [place] [facility] [address] [id number] [place] [address] 13 Jan, 2011 [facility] [place] [facility] [address] [id number] [place] [address] 29 Sep, 2010 [facility] [place] [facility] [address] [id number] [place] [address] 27 Sep, 2010 [facility] [place] [facility] [address] [id number] [place] [address] Sep, [facility] [place] [facility] [address] [id number] [place] [address] Sep, [facility] [place] [facility] [address] [id number] [place] [address] 06 Sep, 2010 [facility] [place] [facility] [address] [id number] [place] [address] Aug, [facility] [place] [facility] [address] [id number] [place] [address] 16 Aug, 2010 [facility] [place] [facility] [address] [id number] [place] [address] 08 Aug, 2010 [facility] [place] [facility] [address] [id number], [place] [address] Jul, [facility] [place] [facility] [address] [id number], [place] [address] Jul, [facility] [place] [facility] [address] [id number], [place] [address] Jul, [facility] [place] [facility] [address] [id number] [place] [address] 11 May, 2010 [facility] [place] [facility] [address] [id number], [place] [address] 13 Apr, 2010 [facility] [place] [facility] [address] [id number] [place] [address] 18 Dec, 2009 [facility] [place] [facility] [address] [facility] [id number] [place] [address] Sep, [facility] [address] [id number], [place] [address] Sep, [facility] [address] [id number], [place] [address] Aug, [facility] [address] [id number], [place] [address] Aug, [facility] [address] [id number], [place] [address] Jul, [facility] [address] [id number], [place] [address] Mar, IMMUNIZATIONS No Known Immunizations SOCIAL HISTORY Never Assessed REASON FOR VISIT PLAN OF CARE VITAL SIGNS MEDICATIONS Medication Instructions Dosage Frequency Start Date End Date Duration Status Protonix 40 mg Orally Once a day 1 tablet 24h Dec, 30 day(s) Active Clonazepam 0.5 MG Orally TID PRN 1 tablet Dec, 28 days Active RESULTS No Results PROCEDURES [...]
--- OUTSIDE RECORDS SUMMARY | 2018-10-08 19:56 | XMS REPORT ---
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 496290447 Problem Edema of both feet R60.0 Active 910996691 Problem Tobacco abuse Z72.0 Active 93140269 Problem Chronic migraine G43.709 Active 40147082 Problem Mixed hyperlipidemia E78.2 Active 600843927 Problem Spinal stenosis, lumbar region M48.06 Active 31503784 Problem Anxiety F41.9 Active 84166643 Problem Radiculopathy of lumbar region M54.16 Active 604837822 Problem Bulging lumbar disc M51.26 Active 023965504 Problem Asthma J45.909 Active 461329882 Problem Essential hypertension I10 Active 75896474 ALLERGIES Substance Reaction Event Type Date Status Prozac severe nightmares Drug Allergy Dec, Active Levaquin Unknown Drug Allergy Dec, Active Diclofenac Sodium rash Drug Allergy Dec, Active ChloraPrep One Step Unknown Drug Allergy Dec, Active Quinolones Unknown Non Drug Allergy Dec, Active ENCOUNTERS Encounter Location Date Diagnosis [facility] [id number] [address] Mar, HSV (herpes simplex virus) infection B00.9 ; Anxiety F41.9 and Chronic pain G89.29 [facility] [address] [facility] [id number] [place] [address] 84286- 1057 Mar, [place] [address] 94525- 6167 Mar, Chronic pain G89.29 [place] [address] [id number]- 1108 February, Chronic pain G89.29 [place] [address] 93985- 0941 Jan, Chronic pain G89.29 [place] [address] 682935- 5100 Jan, care home 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 Z79.4 [place] [address] 910600- 0827 Jan, Encounter for Depo-Provera contraception Z30.42 [place] [address] 21056- 1227 Jan, [place] [address] 33840- 4872 Jan, Chronic pain G89.29 and Anxiety F41.9 [place] [address] 69406- 9811 Jan, [place] [address] 92719- 5103 Dec, [place] [address] 78853- 6703 Dec, Gastroesophageal reflux disease without esophagitis K21.9 and Anxiety F41.9 [place] [address] 62538- 2028 Dec, Essential hypertension I10 ; Mixed hyperlipidemia E78.2 ; Type 2 diabetes mellitus with diabetic neuropathy, unspecified E11.40 ; 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 ; Chronic pain G89.29 ; HSV (herpes simplex virus) infection B00.9 ; Anxiety F41.9 and Gastroesophageal reflux disease without esophagitis K21.9 [place] [id number] [place] [address] 76235- 6922 Dec, Chronic pain G89.29 and Chronic migraine G43.709 [place] [id number] [place] [address] 19609- 6389 Nov, [place] [address] 73726- 6081 Nov, Essential hypertension I10 and Chronic pain G89.29 [place] [address] 23413- 7122 Nov, Chronic pain G89.29 ; Essential hypertension I10 and Type 2 diabetes mellitus without complication E11.9 [place] [address] 51583- 3488 Oct, Chronic pain G89.29 [place] [address] 11648- 0144 Oct, [place] [address] 94893- 6172 Sep, Type 2 diabetes mellitus without complication E11.9 ; Essential hypertension I10 ; care home (current) use of insulin Z79.4 ; Chronic migraine G43.709 ; Chronic pain G89.29 and Acute non-recurrent maxillary sinusitis J01.00 [place] [id number] [place] [address] 09885- 9141 Sep, Encounter for Depo-Provera contraception Z30.42 [place] [id number] [place] [address] 85425- 1221 Sep, Chronic pain G89.29 and Radiculopathy of lumbar region M54.16 [place] [address] 19799- 0156 Sep, [place] [address] 51835- 8842 Sep, [address] [facility] [id number], [place] [address] 2886 Aug, Type 2 diabetes mellitus without complication E11.9 [facility] [address] [facility] [id number], [place] [address] 2546 Aug, [facility] [id number] [address] 2546 Aug, Radiculopathy of lumbar region M54.16 and Chronic pain G89.29 [facility] [address] [facility] [id number], [place] [address] 2546 Aug, Type 2 diabetes mellitus without complication E11.9 [facility] [address] [facility] [id number], [place] [address]- 2036 Aug, Type 2 diabetes mellitus without complication E11.9 [facility] [id number] [address]- 3234 Jul, Type 2 diabetes mellitus without complication E11.9 [facility] [address] [facility] [id number], [place] [address]- 2997 Jul, [facility] [address] [facility] [id number] [place] [address] 08543- 5896 Jul, Chronic pain G89.29 [facility] [id number] [address]- 8900 Jul, [facility] [address] [id number] [address] 2546 Jul, [facility] [address] [facility] [id number], [place] [address]- 2547 Jul, Type 2 diabetes mellitus without complication E11.9 [facility] [address] [facility] [id number], [place] [address] 2546 Jul, [facility] [address] [facility] [id number], [place] [address]- 7117 Jul, Type 2 diabetes mellitus without complication E11.9 [facility] [id number] [place] [address] 78065- 1941 Jul, [facility] [id number] [place] [address] 77544- 6515 Jul, [facility] [id number] [place] [address] 36175- 9879 Jul, [facility] [id number] [place] [address] 64521- 6835 Jun, Type 2 diabetes mellitus without complication E11.9 [facility] [id number] [place] [address] 45963- 6243 26 Jun, 2017 Chronic migraine G43.709 ; Type 2 diabetes mellitus without complication E11.9 ; Calculus of right kidney N20.0 ; Yeast dermatitis B37.2 and HSV (herpes simplex virus) infection B00.9 [place] [id number] [place] [address] 60029- 1063 Jun, Type 2 diabetes mellitus without complication E11.9 [facility] [id number] [place] [address] 01121- 7184 Jun, [place] [id number] [place] [address] 47730- 6039 Jun, Radiculopathy of lumbar region M54.16 and Chronic pain G89.29 [place] [id number] [place] [address] 42026- 3189 Jun, Encounter for Depo-Provera contraception Z30.42 [facility] [id number] [place] [address] 50964- 3211 Jun, Type 2 diabetes mellitus without complication E11.9 [place] [id number] [place] [address] 65110- 6891 Jun, [facility] [id number] [place] [address] 12176 -2696 May, Acute nasopharyngitis (common cold) J00 [facility] [id number] [place] [address] 66703- 9251 May, Chronic pain G89.29 [place] [id number] [place] [address] 16842- 3074 May, Headache following lumbar puncture G97.1 [place] [id number] [place] [address] 83347- 7937 08 May, 2017 Radiculopathy of lumbar region M54.16 [place] [id number] [place] [address] 72907- 0538 Apr, [place] [address] 20608- 9790 Apr, Type 2 diabetes mellitus without complication E11.9 ; Chronic pain G89.29 ; Essential hypertension I10 ; Radiculopathy of lumbar region M54.16 ; Spinal stenosis, lumbar region M48.06 ; Gastroesophageal reflux disease without esophagitis K21.9 ; HSV (herpes simplex virus) infection B00.9 ; Mixed hyperlipidemia E78.2 ; Anxiety F41.9 and Asthma J45.909 [place] [id number] [place] [address] 76703- 0930 Apr, Encounter for Depo-Provera contraception Z30.42 [place] [id number] [place] [address] 41067- 8706 Apr, Chronic pain G89.29 and Anxiety F41.9 [place] [id number] [place] [address] 37378- 8165 Mar, [place] [id number] [place] [address] 08295- 9110 Mar, [place] [id number] [place] [address] 96708- 6153 Mar, Mixed hyperlipidemia E78.2 [place] [id number] [place] [address] 96767- 2756 Mar, Type 2 diabetes mellitus without complication E11.9 ; Chronic pain G89.29 ; Essential hypertension I10 ; Radiculopathy of lumbar region M54.16 ; Spinal stenosis, lumbar region M48.06 ; Gastroesophageal reflux disease without esophagitis K21.9 ; HSV (herpes simplex virus) infection B00.9 ; Mixed hyperlipidemia E78.2 and Anxiety F41.9 [facility] [id number] [place] [address] 80906- 8274 Mar, [facility] [id number] [place] [address] 98285- 6282 Mar, [facility] [id number] [place] [address] 60551- 2338 Mar, [facility] [id number] [place] [address] 31421- 2207 February, Chronic pain G89.29 [facility] [id number] [place] [address] 07223- 7000 February, [facility] [id number] [place] [address] 43939- 3290 Jan, Chronic pain G89.29 [facility] [id number] [place] [address] 36727- 9116 Jan, Type 2 diabetes mellitus without complication E11.9 [facility] [id number] [place] [address] 54398- 4405 Jan, [facility] [id number] [place] [address] 65899- 7342 Jan, [facility] [id number] [place] [address] 84824- 1401 Jan, [facility] [id number] [place] [address] 11413- 0120 Jan, Type 2 diabetes mellitus without complication [...] J01.00 and Encounter for Depo-Provera contraception Z30.42 [place] [id number] [place] [address] 29038- 6715 Dec, Chronic pain G89.29 [place] [id number] [place] [address] 92262- 1732 Dec, Abnormal ankle brachial index (BERNARDINO) R68.89 [address] [id number] [place] [address] 43088- 9289 Dec, [place] [id number] [place] [address] 77521- 6380 Dec, Routine gynecological examination Z01.419 ; Chronic [...] virus) infection B00.9 and Allergic rhinitis 477.9 [place] [id number] [place] [address] 19731- 5974 Nov, Chronic pain G89.29 [place] [address] [place] [address] 94242- 8850 02 Nov, 2016 Chronic pain G89.29 ; [...] media of both ears H65.113 [place] [id number] [place] [address] 02539- 7374 Oct, [facility] [id number] [place] [address] 88701- 3321 Oct, Chronic pain G89.29 [facility] [id number] [place] [address] 42833- 9172 Oct, Chronic pain G89.29 [facility] [id number] [place] [address] 98690- 1264 Sep, Chronic pain G89.29 ; Type 2 diabetes mellitus without complication E11.9 ; Essential hypertension I10 ; Radiculopathy of lumbar region M54.16 ; Spinal stenosis, lumbar region M48.06 ; Gastroesophageal reflux disease without esophagitis K21.9 ; Encounter for surveillance of injectable contraceptive Z30.42 ; Bilateral cold feet R20.9 ; Pain of left foot M79.672 and Pain in right foot M79.671 [place] [id number] [place] [address] 70573- 9644 Sep, [facility] [id number] [place] [address] 64560- 8745 Aug, [place] [id number] [place] [address] 47172- 1942 Aug, [place] [id number] [place] [address] 34714- 1129 Aug, Chronic pain G89.29 ; Type 2 diabetes mellitus without complication E11.9 ; Essential hypertension I10 ; Rash and nonspecific skin eruption R21 and Upper respiratory infection, acute J06.9 [facility] [id number] [place] [address] 00175- 8797 Aug, [place] [id number] [place] [address] 64229- 7740 Aug, [facility] [id number] [place] [address] 84871- 7068 Jul, [place] [address] [place] [address]- 4608 Jul, Dysuria R30.0 ; Encounter for Depo-Provera contraception Z30.42 ; Herpes simplex B00.9 ; Nausea & vomiting R11.2 and Asthma J45.909 [facility] [id number] [place] [address] 34340- 4009 Jun, Dysuria R30.0 [facility] [address] 76805- 8994 19 Jun, 2016 Dysuria R30.0 [facility] [address] 38371- 9498 15 Jun, 2016 [place] [address] 92451- 3047 13 Jun, 2016 [facility] [id number] [place] [address] 14760- 2531 May, [facility] [address] 79121- 0502 May, [facility] [id number] [place] [address] 50751- 6342 May, Chronic pain G89.29 ; Essential hypertension I10 ; Type 2 diabetes mellitus without complication E11.9 ; Edema of both feet R60.0 and Rash and nonspecific skin eruption R21 [facility] [id number] [place] [address] 71488- 7589 Apr, [facility] [id number] [place] [address] 79239- 4168 Mar, Carpal tunnel syndrome, left upper limb G56.02 and Carpal tunnel syndrome, right upper limb G56.01 [facility] [address] 04842- 9936 Mar, [facility] [id number] [place] [address] 91518- 0248 Mar, Encounter for Depo-Provera contraception Z30.42 [place] [id number] [place] [address] 63923- 3779 February, [place] [address] 41045- 5905 February, [place] [id number] [place] [address] 98662- 2550 February, Chronic pain G89.29 ; Essential hypertension I10 ; Type 2 diabetes mellitus without complication E11.9 ; HSV (herpes simplex virus) infection B00.9 ; Anxiety F41.9 ; Hypersomnia G47.10 ; Tobacco abuse Z72.0 ; Hand pain, left M79.642 ; Hand pain, right M79.641 ; Left foot pain M79.672 and Heart palpitations R00.2 [place] [id number] [place] [address] 69172- 2160 Jan, [place] [address] 12535- 1971 Jan, [place] [id number] [place] [address] 60601- 1724 Jan, [place] [id number] [place] [address] 52599- 7756 Jan, [place] [id number] [place] [address] 93792- 5364 Jan, Upper respiratory infection J06.9 and Type 2 diabetes mellitus without complication E11.9 [place] [id number] [place] [address] 41048- 3060 Dec, [place] [id number] [place] [address] 03024- 5354 Dec, Chronic pain G89.29 ; Essential hypertension I10 ; Type 2 diabetes mellitus without complication E11.9 ; HSV (herpes simplex virus) infection B00.9 ; Anxiety F41.9 ; Upper respiratory infection J06.9 ; Hypersomnia G47.10 and Tobacco abuse Z72.0 [place] [address] [place] [address]- 3548 17 Dec, 2015 Encounter for Depo-Provera contraception Z30.42 [place] [address] 15888- 5602 Dec, [place] [address] 28588- 1097 Dec, Chronic pain G89.29 ; Sinusitis J32.9 ; Snoring R06.83 and Daytime hypersomnia G47.19 [place] [address] 39850- 3854 Nov, HSV (herpes simplex virus) infection B00.9 ; Encounter for Papanicolaou smear for cervical cancer screening Z12.4 ; Screening for STD sexually transmitted disease Z11.3 and Bartholin's gland cyst N75.0 [place] [address] 37640- 2906 Nov, [place] [address] 28895- 7765 Nov, [place] [address] 34769- 6565 Nov, Essential hypertension I10 ; Type 2 diabetes mellitus without complication E11.9 ; HSV (herpes simplex virus) infection B00.9 ; Spinal stenosis, lumbar region M48.06 and Vaginal yeast infection B37.3 [place] [id number] [place] [address] 38925- 1680 Nov, [place] [id number] [place] [address] 41258- 7139 Nov, [place] [address] 93083- 5763 Oct, [place] [address] 71927- 5497 Oct, HSV (herpes simplex virus) infection B00.9 ; Yeast infection B37.9 ; Change in bowel habit R19.4 ; Nausea & vomiting R11.2 and Gastroesophageal reflux disease without esophagitis K21.9 [place] [address] 10550- 6822 Oct, [place] [address] 32448- 9384 Oct, Type 2 diabetes mellitus without complication E11.9 ; Essential hypertension I10 and Acute maxillary sinusitis, recurrence not specified J01.00 [place] [address] 71676- 7068 Oct, [address] 44242- 9852 Oct, [place] [address] 00613- 1647 Oct, Exposure to head lice Z20.7 ; Blood glucose abnormal R73.09 ; Boil of buttock L02.32 and Type 2 diabetes mellitus without complication E11.9 [place] [address] 88712- 3673 Oct, [place] [address] 64464- 6565 Sep, [place] [address] 35058- 8942 Sep, [address] 84885- 8889 Aug, Encounter for Depo-Provera contraception Z30.[address] 25794- 2285 Aug, Anxiety F41.9 ; Spinal stenosis, lumbar region M48.06 ; Radiculopathy of lumbar region M54.16 ; Asthma J45.909 ; GERD (gastroesophageal reflux disease) K21.9 ; Essential hypertension I10 and Long-term use of high- risk medication Z79.899 [place] [address] 56325- 4528 Jul, [place] [address] 76757- 2404 Jun, Hemorrhoid 455.6 [place] [address] 74444- 7410 Jun, [address] 08630- 6785 Jun, Anxiety 300.00 ; Asthma 493.90 ; Hyperhidrosis 705.21 ; Chest discomfort 786.59 and Upper respiratory infection 465.[address] 72846- 8387 May, Encounter for Depo-Provera contraception V25.[address] 41946- 5897 May, [address] 25743- 4074 May, [address] 05384- 5451 May, Spinal stenosis of lumbar region with radiculopathy 724.02 ; Bulging of intervertebral disc between L4 and L5 722.10 ; GERD ( gastroesophageal reflux disease) 530.81 ; Chronic pain 338.29 ; Declining mobility 799.89 and Epigastric pain 789.[address] 33358- 0328 Apr, [address] 86933- 7479 Apr, Nausea 787.02 and Heart burn 787.[address] 71285- 8472 Mar, Lumbago 724.2 ; Vitamin D deficiency 268.9 ; Anxiety 300.00 ; Allergic rhinitis 477.9 and Contraceptive surveillance V25.40 [place] [id number] [address]- 4510 February, 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 ; Chronic pain 338.29 and Vaginal discharge 623.5 [facility] [address] [facility] [id number]- 0553 February, [facility] [address], [place] [address]- 0059 February, [facility] [address] [facility] [id number], [place] [address]- 8392 Jan, [facility] [address], [place] [address]- 5185 Jan, [facility] [address], [place] [address]- 8778 Dec, [facility] [address], [place] [address]- 4278 Dec, [facility] [address], [place] [address]- 0223 Dec, [facility] [address], [place] [address]- 6392 Dec, [facility] [address], [place] [address]- 0666 Dec, [facility] [address], [place] [address]- 2744 Dec, [facility] [address], [place] [address]- 9928 Dec, [facility] [address], [place] [address]- 7233 Dec, [facility] [address] 5978 Dec, [facility] [id number] 2465 Dec, [facility] [place] [facility] [address] [id number] [place] [address]- 8085 Dec, [facility] [place] [facility] [address] [id number] [place] [address]- 7387 Dec, 2014 [facility] [place] [facility] [address] [id number] [place] [address]- 9291 Nov, 2014 [facility] [place] [facility] [address] [id number] [place] [address]- 3140 Nov, 2014 [facility] [place] [facility] [address] [id number] [place] [address]- 0478 24 Nov, 2014 [facility] [place] [facility] [address] [id number] [place] [address]- 9194 24 Nov, 2014 [facility] [place] [facility] [address] [facility] [id number] [place] [address]- 6516 Nov, 2014 [facility] [place] [facility] [address] [id number] [place] [address]- 0340 23 Nov, 2014 [facility] [place] [facility] [address] [id number] [place] [address] 16 Nov, 2014 [facility] [place] [facility] [address] [facility] [id number] [place] [address] 16 Nov, 2014 [facility] [place] [facility] [address] [facility] [id number] [place] [address] 13 Nov, 2014 [facility] [place] [facility] [address] [id number] [place] [address] 13 Nov, 2014 [facility] [place] [facility] [address] [id number] [place] [address] 13 Nov, 2014 [facility] [place] [facility] [address] [id number] [place] [address] 13 Nov, 2014 [facility] [place] [facility] [address] [facility] [id number] [place] [address] 13 Nov, 2014 [facility] [place] [facility] [address] [id number] [place] [address] Nov, 2014 [facility] [place] [facility] [address] [id number] [place] [address] Nov, 2014 [facility] [place] [facility] [address] [id number] [place] [address] Nov, 2014 [facility] [place] [facility] [address] [id number] [place] [address] 1488 Nov, 2014 [facility] [place] [facility] [address] [id number] [place] [address] 4293 Nov, 2014 [facility] [place] [facility] [address] [id number] [place] [address] 8673 Nov, 2014 [facility] [place] [facility] [address] [facility] [id number] [place] [address]- 6587 Nov, 2014 [facility] [place] [facility] [address] [facility] [id number] [place] [address]- 4117 Nov, 2014 [facility] [place] [facility] [address] [facility] [id number] [place] [address]- 9107 Nov, 2014 [facility] [place] [facility] [address] [facility] [id number] [place] [address] 8265 Nov, [facility] [place] [facility] [address] [facility] [id number] [place] [address]- 1047 Oct, [facility] [place] [facility] [address] [id number] [place] [address]- 0015 Oct, [facility] [place] [facility] [address] [id number] [place] [address]- 5791 Oct, [facility] [place] [facility] [address] [id number] [place] [address]- 5408 Oct, [facility] [place] [facility] [address] [facility] [id number] [place] [address]- 2767 Oct, [facility] [place] [facility] [address] [facility] [id number] [place] [address]- 3267 Oct, [facility] [place] [facility] [address] [id number] [place] [address]- 9466 Oct, [facility] [place] [facility] [address] [id number] [place] [address]- 9741 Oct, [facility] [place] [facility] [address] [id number] [place] [address]- 5359 Oct, [facility] [place] [facility] [address] [id number] [place] [address]- 3839 Oct, [facility] [place] [facility] [address] [id number] [place] [address]- 6174 Oct, [facility] [place] [facility] [address] [id number] [place] [address]- 3299 Oct, [facility] [place] [facility] [address] [id number] [place] [address]- 1027 Oct, [facility] [place] [facility] [address] [id number] [place] [address]- 7756 Oct, [facility] [place] [facility] [address] [id number] [place] [address]- 7858 Oct, [facility] [place] [facility] [address] [id number] [place] [address]- 3268 Oct, [facility] [place] [facility] [address] [id number], [place] [address]- 0710 Oct, [facility] [place] [facility] [address] [id number], [place] [address]- 4638 Oct, [facility] [place] [facility] [address] [id number] [place] [address]- 9352 Oct, [facility] [place] [facility] [address] [id number] [place] [address]- 1857 Oct, [facility] [place] [facility] [address] [id number] [place] [address]- 9429 Oct, [facility] [place] [facility] [address] [id number] [place] [address]- 9530 29 Sep, 2014 [facility] [address] [id number] [place] [address]- 4136 29 Sep, 2014 [facility] [place] [facility] [address] [id number] [place] [address]- 9446 18 Sep, 2014 [facility] [place] [facility] [address] [id number] [place] [address]- 1596 18 Sep, 2014 [facility] [place] [facility] [address] [id number] [place] [address]- 3769 17 Sep, 2014 [facility] [place] [facility] [address] [id number] [place] [address]- 1537 17 Sep, 2014 [facility] [place] [facility] [address] [id number] [place] [address]- 1323 15 Sep, 2014 [facility] [place] [facility] [address] [id number] [place] [address]- 3831 15 Sep, 2014 [facility] [address] [id number] [place] [address]- 8873 12 Sep, 2014 [facility] [place] [facility] [address] [id number] [place] [address]- 0317 12 Sep, 2014 [facility] [address] [id number] [place] [address]- 6998 11 Sep, 2014 [facility] [place] [facility] [address] [id number] [place] [address]- 1332 11 Sep, 2014 [facility] [place] [facility] [address] [id number] [place] [address]- 2435 11 Sep, 2014 [facility] [place] [facility] [address] [id number] [place] [address]- 7537 11 Sep, 2014 [facility] [place] [facility] [address] [id number] [place] [address]- 7997 11 Sep, 2014 [facility] [place] [facility] [address] [id number] [place] [address]- 6875 Sep, [facility] [place] [facility] [address] [id number] [place] [address]- 0993 Sep, [facility] [place] [facility] [address] [id number] [place] [address]- 4618 Sep, [facility] [place] [facility] [address] [id number] [place] [address]- 9708 Sep, [facility] [place] [facility] [address] [id number] [place] [address]- 5024 Sep, [facility] [place] [facility] [address] [id number] [place] [address]- 3966 Aug, [facility] [place] [facility] [address] [id number] [place] [address]- 9770 Aug, [facility] [place] [facility] [address] [id number] [place] [address]- 7826 Aug, [facility] [place] [facility] [address] [id number] [place] [address]- 5717 Aug, [facility] [place] [facility] [address] [id number] [place] [address]- 0579 Aug, [facility] [place] [facility] [address] [id number] [place] [address]- 6133 Aug, [facility] [place] [facility] [address] [id number] [place] [address]- 6284 Aug, [facility] [place] [facility] [address] [id number], [place] [address]- [address]707 Aug, [facility] [place] [facility] [address] [id number] [place] [address]- 8901 Aug, [facility] [place] [facility] [address] [id number] [place] [address]- 2495 Jul, [facility] [place] [facility] [address] [id number] [place] [address]- 6769 Jul, [facility] [place] [facility] [address] [id number] [place] [address]- 6013 23 Jul, 2013 [facility] [place] [facility] [address] [id number] [place] [address]- 5153 23 Jul, 2013 [facility] [place] [facility] [address] [id number] [place] [address]- 4381 16 Jul, 2013 [facility] [place] [facility] [address] [id number] [place] [address]- 2856 16 Jul, 2013 [facility] [place] [facility] [address] [id number] [place] [address]- 0793 13 Jul, 2013 [facility] [place] [facility] [address] [id number] [place] [address]- 5646 13 Jul, 2013 [facility] [place] [facility] [address] [id number] [place] [address]- 0514 10 Jul, 2013 [facility] [place] [facility] [address] [id number] [place] [address]- 9643 10 Jul, 2013 [facility] [place] [facility] [address] [id number] [place] [address]- 3938 10 Jul, 2013 [facility] [place] [facility] [address] [id number] [place] [address]- 1567 10 Jul, 2013 [facility] [place] [facility] [address] [id number] [place] [address]- 5296 07 Jul, 2013 [facility] [place] [facility] [address] [id number] [place] [address]- 2009 07 Jul, 2013 [facility] [place] [facility] [address] [id number][place] [address]- 5612 30 Jun, 2013 [facility] [place] [facility] [address] [id number] [place] [address]- 8351 30 Jun, 2013 [facility] [place] [facility] [address] [id number] [place] [address]- 4957 25 Jun, 2013 [facility] [place] [facility] [address] [id number] [place] [address]- 6503 25 Jun, 2013 [facility] [place] [facility] [address] [id number] [place] [address] 2546 25 Sep, 2013 [facility] [place] [facility] [address] [id number] [place] [address] 2546 25 Sep, 2013 [facility] [place] [facility] [address] [id number] [place] [address] 2546 24 Sep, 2013 [facility] [place] [facility] [address] [id number] [place] [address] 2546 24 Sep, 2013 [facility] [place] [facility] [address] [id number] [place] [address] 2548 22 Sep, 2013 [facility] [place] [facility] [address] [id number] [place] [address] 2549 22 Sep, 2013 [facility] [place] [facility] [address] [id number] [place] [address]- 1713 17 Sep, 2013 [facility] [place] [facility] [address] [id number] [place] [address]- 6130 17 Sep, 2013 [facility] [place] [facility] [address] [id number] [place] [address] 254 16 Sep, 2013 [facility] [place] [facility] [address] [id number] [place] [address] 2543 16 Sep, 2013 [facility] [place] [facility] [address] [id number] [place] [address] 2545 15 Sep, 2013 [facility] [place] [facility] [address] [id number] [place] [address] 2542 15 Sep, 2013 [facility] [place] [facility] [address] [id number] [place] [address] 2546 12 Sep, 2013 [facility] [place] [facility] [address] [id number] [place] [address] 2546 12 Sep, 2013 [facility] [place] [facility] [address] [id number] [place] [address] 2541 11 Sep, 2013 [facility] [place] [facility] [address] [id number] [place] [address]- 8733 Jun, 2013 [facility] [place] [facility] [address] [id number] [place] [address]- 0233 Jun, 2013 [facility] [place] [facility] [address] [id number] [place] [address]- 9957 Jun, [facility] [place] [facility] [address] [id number] [place] [address]- 8519 Jun, 2013 [facility] [place] [facility] [address] [id number] [place] [address]- 8898 Jun, 2013 [facility] [place] [facility] [address] [id number] [place] [address]- 2631 Jun, [facility] [place] [facility] [address] [id number] [place] [address]- 8315 Jun, [facility] [place] [facility] [address] [id number] [place] [address]- 6093 May, [facility] [place] [facility] [address] [id number] [place] [address]- 7734 May, [facility] [place] [facility] [address] [id number] [place] [address]- 6951 May, [facility] [place] [facility] [address] [id number] [place] [address]- 6489 May, [facility] [place] [facility] [address] [id number], [place] [address]- 3920 May, [facility] [place] [facility] [address] [id number], [place] [address]- 1955 May, [facility] [place] [facility] [address] [id number] [place] [address]- 2773 May, [facility] [place] [facility] [address] [id number] [place] [address]- 2566 May, [facility] [place] [facility] [address] [id number] [place] [address]- 3444 May, [facility] [place] [facility] [address] [id number] [place] [address]- 3650 May, [facility] [place] [facility] [address] [id number] [place] [address]- 7639 May, [facility] [place] [facility] [address] [id number] [place] [address]- 3607 May, [facility] [place] [facility] [address] [id number] [place] [address]- 3836 May, [facility] [place] [facility] [address] [id number] [place] [address]- 9307 Apr, [facility] [place] [facility] [address] [id number] [place] [address]- 9971 Apr, [facility] [place] [facility] [address] [id number] [place] [address]- 2821 Apr, [facility] [place] [facility] [address] [id number] [place] [address]- 0790 Apr, [facility] [place] [facility] [address] [id number] [place] [address]- 0596 Apr, [facility] [place] [facility] [address] [id number] [place] [address]- 8087 Mar, [facility] [place] [facility] [address] [id number] [place] [address]- 9730 Mar, [facility] [place] [facility] [address] [id number] [place] [address]- 6074 Mar, [facility] [place] [facility] [address] [id number] [place] [address]- 7796 February, [facility] [place] [facility] [address] [id number] [place] [address]- 8933 February, [facility] [place] [facility] [address] [id number] [place] [address]- 7738 February, [facility] [place] [facility] [address] [id number] [place] February, [facility] [place] [facility] [address] [id number] [place] [address]- 9175 February, [facility] [place] [facility] [address] [id number] [place] [address]- 4609 February, [facility] [place] [facility] [address] [id number] [place] [address]- 7557 February, [facility] [place] [facility] [address] [id number] [place] [address]- 8969 February, [facility] [place] [facility] [address] [id number] [place] [address]- 5707 February, [facility] [place] [facility] [address] [id number] [place] [address]- 6693 Jan, [facility] [place] [facility] [address] [id number] [place] [address]- 6957 Jan, [facility] [place] [facility] [address] [id number] [place] [address]- 6167 Jan, [facility] [place] [facility] [address] [id number] [place] [address]- 6803 Jan, [facility] [place] [facility] [address] [id number] [place] [address]- 9242 Jan, [facility] [place] [facility] [address] [id number] [place] [address]- 6950 Dec, [facility] [place] [facility] [address] [id number] [place] [address]- 5763 Dec, [facility] [place] [facility] [address] [id number] [place] [address]- 0756 Dec, [facility] [place] [facility] [address] [id number] [place] [address]- 4562 Dec, [facility] [place] [facility] [address] [id number] [place] [address]- 0816 Dec, [facility] [place] [facility] [address] [id number] [place] [address]- 8364 Nov, [facility] [address] [id number] [place] [address]- 3206 Nov, [facility] [place] [facility] [address] [id number] [place] [address]- 4773 Nov, [facility] [place] [facility] [address] [id number] [place] [address]- 7796 Nov, [facility] [place] [facility] [address] [id number] [place] [address]- 4806 Oct, [facility] [place] [facility] [address] [id number] [place] [address]- 8998 Oct, [facility] [place] [facility] [address] [id number] [place] [address]- 4093 Oct, [facility] [place] [facility] [address] [id number] [place] [address]- 5574 Oct, [facility] [place] [facility] [address] [id number] [place] [address]- 4463 Oct, [facility] [place] [facility] [address] [id number] [place] [address]- 6060 Oct, [facility] [place] [facility] [address] [facility] [id number] [place] [address]- 3397 Oct, [facility] [place] [facility] [address] [id number] [place] [address]- 6625 Oct, [facility] [place] [facility] [address] [id number], [place] [address]- 6269 Oct, [facility] [place] [facility] [address] [id number] [place] [address]- 7424 Oct, [facility] [place] [facility] [address] [id number] [place] [address]- 8418 Aug, [facility] [place] [facility] [address] [id number] [place] [address]- 4428 Aug, [facility] [place] [facility] [address] [id number] [place] [address]- 5952 Jul, [facility] [place] [facility] [address] [id number] [place]87 Jul, [facility] [place] [facility] [address] [id number] [place] [address]- 4289 Jul, [facility] [place] [facility] [address] [id number] [place] [address]- 7217 Jul, [facility] [place] [facility] [address] [id number] [place] [address]- 7749 Jul, [facility] [place] [facility] [address] [id number] [place] [address]- 3283 Jul, [facility] [address] [id number] [place] [address]- 3867 Apr, [facility] [place] [facility] [address] [id number] [place] [address]- 0407 Dec, [facility] [place] [facility] [address] [id number] [place] [address]- 9717 Nov, [facility] [place] [facility] [address] [id number] [place] [address]- 8836 Nov, [facility] [place] [facility] [address] [id number] [place] [address]- 6491 Nov, [facility] [place] [facility] [address] [id number] [place] [address]- 6986 Oct, [facility] [place] [facility] [address] [id number] [place] [address]- 2791 Sep, [facility] [place] [facility] [address] [id number] [place] [address]- 6770 Sep, [facility] [place] [facility] [address] [id number] [place] [address]- 6829 Sep, [facility] [place] [facility] [address] [id number] [place] [address]- 8901 Sep, [facility] [place] [facility] [address] [id number] [place] [address]- 0552 Aug, [facility] [place] [facility] [address] [id number] [place] [address]- 6436 Aug, [facility] [place] [facility] [address] [id number] [place] [address]- 7106 Jul, [facility] [place] [facility] [address] [id number] [place] [address]- 7910 Jul, [facility] [place] [facility] [address] [id number] [place] [address]- 4826 28 Jun, 2012 [facility] [place] [facility] [address] [id number] [place] [address]- 8398 26 Jun, 2012 [facility] [place] [facility] [address] [id number] [place] [address]- 8400 24 Jun, 2012 [facility] [place] [facility] [address] [id number] [place] [address]- 4886 24 Jun, 2012 [facility] [place] [facility] [address] [id number] [place] [address]- 3233 Jun, [facility] [place] [facility] [address] [id number] [place] [address]- 1750 Apr, [facility] [place] [facility] [address] [id number] [place] [address]- 4104 Apr, [facility] [place] [facility] [address] [id number] [place] [address]- 1985 Apr, [facility] [place] [facility] [address] [id number] [place] [address]- 5680 Mar, [facility] [place] [facility] [address] [id number] [place] [address]- 6439 Mar, [facility] [place] [facility] [address] [id number] [place] [address]379 Mar, [facility] [place] [facility] [address] [id number] [place] [address]- 0906 February, [facility] [address] [id number] [place] [address]- 2086 Jan, [facility] [place] [facility] [address] [id number] [place] [address]- 1306 Dec, [facility] [address] [id number] [place] [address]- 0587 Dec, [facility] [place] [facility] [address] [id number] [place] [address]- 2082 Dec, [facility] [address] [id number] [place] [address]- 1766 Dec, [facility] [address] [id number] [id number] Dec, [facility] [address] [id number] [place] [address]- 3227 14 Nov, 2011 [facility] [address] [id number] [place] [address]- 6404 13 Nov, 2011 [facility] [address] [id number] [place] [address]- 9286 Oct, [facility] [address] [id number] [place] [address]- 1756 Oct, [facility] [address] [id number] [place] [address]- 9146 Oct, [facility] [address] [id number] [place] [address] Sep, [facility] [place] [facility] [address] [id number] [place] [address] Aug, [facility] [place] [facility] [address] [id number] [place] [address] Aug, [facility] [place] [facility] [address] [id number] [place] [address] Jul, [facility] [place] [facility] [address] [id number] [place] [address] 24 Jul, 2011 [facility] [place] [facility] [address] [id number] [place] [address] 19 Jul, 2011 [facility] [place] [facility] [address] [id number] [place] [address] 13 Jan, 2011 [facility] [place] [facility] [address] [id number] [place] [address] 29 Sep, 2010 [facility] [place] [facility] [address] [id number] [place] [address] 27 Sep, 2010 [facility] [place] [facility] [address] [id number] [place] [address] Sep, [facility] [place] [facility] [address] [id number] [place] [address] Sep, [facility] [place] [facility] [address] [id number] [place] [address] 06 Sep, 2010 [facility] [place] [facility] [address] [id number] [place] [address] Aug, [facility] [place] [facility] [address] [id number] [place] [address] 16 Aug, 2010 [facility] [place] [facility] [address] [id number] [place] [address] Aug, [facility] [place] [facility] [address] [id number], [place] [address] Jul, [facility] [place] [facility] [address] [id number] [place] [address] Jul, [facility] [place] [facility] [address] [id number], [place] [address] Jul, [facility] [place] [facility] [address] [id number] [place] [address] May, [facility] [place] [facility] [address] [id number] [address] Apr, [facility] [id number] [address] Dec, [facility] [id number], [place] [address] Sep, [facility] [id number], [place] [address] Sep, [facility] [id number] [place] [address] Aug, [facility] [id number] [place] [address] Aug, [facility] [id number] [place] [address] Jul, [facility] [id number], [place] [address] Mar, IMMUNIZATIONS No Known Immunizations SOCIAL HISTORY Never Assessed REASON FOR VISIT Pain management (chronic)--tjanssenMA, --wants to get a medication again for acid reflux PLAN OF CARE Activity Details Follow Up 3 Months Reason:pain anxiety VITAL SIGNS Height 63 in 2018-01-01 Weight 218 lbs 2018-01-01 Temperature 97.6 degrees Fahrenheit 2018-01-01 Heart Rate 82 bpm 2018-01-01 Respiratory Rate 22 2018-01-01 BMI 38.61 kg/m2 2018-01-01 Blood pressure systolic 116 mmHg 2018-01-01 Blood pressure diastolic 82 mmHg 2018-01-01 MEDICATIONS Medication Instructions Dosage Frequency Start Date End Date Duration Status ProAir HFA 108 (90 Base) MCG/ACT Inhalation every 4 hrs prn 2 puffs as needed Jun, 30 days Active Nystatin 343332 UNIT/GM Externally three times a day 1 application to affected area 8h Oct, Active Carafate 1 GM orally twice daily 1 tablet Active Symbicort 80-4.5 MCG/ACT Inhalation Twice a day 2 puffs 12h Jul, Active Protonix 40 mg Orally Once a day 1 packet 24h Dec, 30 day(s) Active Promethazine HCl 25 MG Orally Once a day 1 tablet as needed 24h 30 Active Fenofibrate 145 MG Orally Once a day 1 tablet 24h 90 Active Robaxin 500 mg Orally 3 times a day 1 tablet 8h 90 days Active Hydrocodone-Acetaminophen 5-325 MG Orally four times a day as needed for pain. Must last 28 days. 1 tablet Dec, Active Amlodipine Besylate 5 mg Orally Once a day 1 tablet 24h 90 days Active OneTouch Verio - In Vitro twice a day DX: E11.9 test blood sugar Jun, Active Flonase 50 mcg/act Nasally Once a day 1 sprays by Nasal route 2 times per day in each nostril 24h 30 days Active Glimepiride 2 MG Orally twice a day 1 tablet 12h 90 Active Ijezriyyle-FJHF-Qmbbrpia 50-325-40 MG Orally every 6 hrs for severe headache 1 tablet as needed Jun, Active MS Contin 15 MG Orally every 12 hrs as needed must last 28 days 1 tablet Dec, Active Valacyclovir HCl 1 GM Orally every 24 hrs 1 tablet 30 Active BD Pen Needle Ultrafine 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 Active Lidoderm 5 % Externally Once a day 1 patch to skin remove after 12 hours 24h Dec, Mar, 30 days Active Lyrica 150 MG Orally Three times a day 1 capsule 8h Active Lidocaine 5 % Externally Three times a day 1 application to affected area as needed 8h Active Metoprolol Tartrate 25 MG Orally Twice a day 1 tablet with food 12h Active Cane 1 as directed 24h May, 99 days Active Clonazepam 0.5 MG Orally TID PRN 1 tablet at bedtime Dec, 28 days Active OneTouch Lancets - as directed Jun, Active Levemir Flexpen 100 UNIT/ML Subcutaneous Once a day 30 units 24h Active Nabumetone 500 mg Orally Twice a day 1 tablet 12h 90 Active RESULTS No Results PROCEDURES Procedure Date Ordered Result Body Site LAB NOT BILLED BY [facility] January 01, 2018 VENIPUNCT, ROUTINE* January 01, 2018 INSTRUCTIONS MEDICATIONS ADMINISTERED No Known Medications [...] 2015 Hospitalization History Surgery(s) only Hospitalization History [place]-sepsis/ARF 06/2017
--- OUTSIDE RECORDS SUMMARY | 2018-10-08 19:57 | XMS REPORT ---
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 Active 153004082 Problem Edema of both feet R60.0 Active 193298360 Problem Tobacco abuse Z72.0 Active 89749250 Problem Chronic migraine G43.709 Active 25422755 Problem Mixed hyperlipidemia E78.2 Active 864819017 Problem Spinal stenosis, lumbar region M48.06 Active 43100034 Problem Anxiety F41.9 Active 44698859 Problem Radiculopathy of lumbar region M54.16 Active 239685872 Problem Bulging lumbar disc M51.26 Active 198299210 Problem Asthma J45.909 Active 091335262 Problem Essential hypertension I10 Active 52552287 ALLERGIES No Information ENCOUNTERS Encounter Location Date Diagnosis [facility] [id number] [place] [address] 84620- 3647 February, Chronic pain G89.29 [facility] [id number] [place] [address] 21077- 3044 Jan, Chronic pain G89.29 [facility] [id number] [place] [address] 99442- 9196 Jan, 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 [facility] [id number] [place] [address] 00602- 3773 09 Jan, 2018 Encounter for Depo-Provera contraception Z30.42 [facility] [id number] [place] [address] 34701- 3559 Jan, [facility] [id number] [place] [address] 75463- 9310 Jan, Chronic pain G89.29 and Anxiety F41.9 [facility] [address] 88963- 4952 Jan, [facility] [id number] [place] [address] 89516- 1938 14 Dec, 2017 [facility] [id number] [place] [address] 26072- 4975 14 Dec, 2017 Gastroesophageal reflux disease without esophagitis K21.9 and Anxiety F41.9 [facility] [address] 77469- 0548 Dec, Essential hypertension I10 ; Mixed hyperlipidemia E78.2 ; Type 2 diabetes mellitus with diabetic neuropathy, unspecified E11.40 ; 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 ; Chronic pain G89.29 ; HSV (herpes simplex virus) infection B00.9 ; Anxiety F41.9 and Gastroesophageal reflux disease without esophagitis K21.9 [facility] [id number] [place] [address] 88982- 6834 07 Dec, 2017 Chronic pain G89.29 and Chronic migraine G43.709 [facility] [id number] [place] [address] 87616- 3025 Nov, [facility] [id number] [place] [address] 43146- 0391 Nov, Essential hypertension I10 and Chronic pain G89.29 [facility] [id number] [place] [address] 23090- 1225 05 Nov, 2017 Chronic pain G89.29 ; Essential hypertension I10 and Type 2 diabetes mellitus without complication E11.9 [facility] [id number] [place] [address] 98928- 5094 Oct, Chronic pain G89.29 [facility] [id number] [place] [address] 87688- 7640 Oct, [facility] [id number] [place] [address] 08932- 8397 Sep, Type 2 diabetes mellitus without complication E11.9 ; Essential hypertension I10 ; prison (current) use of insulin Z79.4 ; Chronic migraine G43.709 ; Chronic pain G89.29 and Acute non-recurrent maxillary sinusitis J01.00 [facility] [id number] [place] [address] 53454- 5943 19 Sep, 2017 Encounter for Depo-Provera contraception Z30.42 [facility] [id number] [place] [address] 38715- 1668 13 Sep, 2017 Chronic pain G89.29 and Radiculopathy of lumbar region M54.16 [facility] [id number] [place] [address] 04003- 4080 Sep, [facility] [id number] [place] [address] 29779- 7553 Sep, [facility] [id number] [place] [address] 84537- 0186 Aug, Type 2 diabetes mellitus without complication E11.9 [facility] [id number] [place] [address] 80623- 2458 Aug, [facility] [id number] [place] [address] 71963- 3952 Aug, Radiculopathy of lumbar region M54.16 and Chronic pain G89.29 [facility] [id number] [place] [address] 69890- 5499 09 Aug, 2017 Type 2 diabetes mellitus without complication E11.9 [facility] [id number] [place] [address] 15973- 1150 Aug, Type 2 diabetes mellitus without complication E11.9 [facility] [address] [address]- 8661 Jul, Type 2 diabetes mellitus without complication E11.9 [facility] [address] [address]- 8078 Jul, [facility] [id number] [place] [address] 24603- 1999 Jul, Chronic pain G89.29 [facility] [id number] [place] [address] 48194- 3014 Jul, [facility] [id number] [place] [address] 43783- 5640 Jul, [facility] [id number] [place] [address] 58028- 7965 Jul, Type 2 diabetes mellitus without complication E11.9 [facility] [id number] [place] [address] 23426- 1357 Jul, [facility] [address] [address]- 3587 Jul, Type 2 diabetes mellitus without complication E11.9 [facility] [address] [address]- 2546 Jul, [facility] [address] [address]- 1936 Jul, [facility] [address] [address]- 6350 Jul, [facility] [address] [address]- 4091 Jun, Type 2 diabetes mellitus without complication E11.9 [facility] [address] [address]- 4945 Jun, Chronic migraine G43.709 ; Type 2 diabetes mellitus without complication E11.9 ; Calculus of right kidney N20.0 ; Yeast dermatitis B37.2 and HSV (herpes simplex virus) infection B00.9 [facility] [id number] [place] [address] 80467- 5919 Jun, Type 2 diabetes mellitus without complication E11.9 [facility] [address] 70437- 2515 Jun, [facility] [address] 96824- 5013 Jun, Radiculopathy of lumbar region M54.16 and Chronic pain G89.29 [facility] [address] 14103- 1857 Jun, Encounter for Depo-Provera contraception Z30.42 [facility] [address] 18106- 7450 Jun, Type 2 diabetes mellitus without complication E11.9 [facility] [address] 46683- 6748 Jun, [facility] [id number] [place] [address] 70140 -0565 May, Acute nasopharyngitis (common cold) J00 [facility] [id number] [place] [address] 32614- 1916 May, Chronic pain G89.29 [facility] [address] 37888- 0042 May, Headache following lumbar puncture G97.1 [facility] [address] 73194- 8740 May, Radiculopathy of lumbar region M54.16 [facility] [address] 26340- 6619 Apr, [facility] [address] 91664- 6108 Apr, Type 2 diabetes mellitus without complication E11.9 ; Chronic pain G89.29 ; Essential hypertension I10 ; Radiculopathy of lumbar region M54.16 ; Spinal stenosis, lumbar region M48.06 ; Gastroesophageal reflux disease without esophagitis K21.9 ; HSV (herpes simplex virus) infection B00.9 ; Mixed hyperlipidemia E78.2 ; Anxiety F41.9 and Asthma J45.909 [facility] [id number] [place] [address] 69095- 8568 Apr, Encounter for Depo-Provera contraception Z30.42 [facility] [address] 00271- 5836 Apr, Chronic pain G89.29 and Anxiety F41.[address] 27177- 9150 Mar, [facility] [address] 28040- 9062 Mar, [facility] [address] 29288- 1462 Mar, Mixed hyperlipidemia E78.2 [facility] [id number] [place] [address] 46908- 4271 Mar, Type 2 diabetes mellitus without complication E11.9 ; Chronic pain G89.29 ; Essential hypertension I10 ; Radiculopathy of lumbar region M54.16 ; Spinal stenosis, lumbar region M48.06 ; Gastroesophageal reflux disease without esophagitis K21.9 ; HSV (herpes simplex virus) infection B00.9 ; Mixed hyperlipidemia E78.2 and Anxiety F41.9 [facility] [id number] [place] [address] 90053- 2979 Mar, [facility] [address] 72808- 7368 Mar, [facility] [id number] [place] [address] 10539- 4977 Mar, [facility] [id number] [place] [address] 15364- 5928 February, Chronic pain G89.29 [facility] [address] [address]- 8004 February, [facility] [id number] [place] [address] 29431- 4014 Jan, Chronic pain G89.29 [facility] [address] [place] [address] 20440- 5471 Jan, Type 2 diabetes mellitus without complication E11.9 [facility] [id number] [place] [address] 99906- 9525 Jan, [facility] [id number] [place] [address] 74250- 9577 Jan, [facility] [id number] [place] [address] 55917- 3573 Jan, [facility] [id number] [place] [address] 29905- 6334 Jan, Type 2 diabetes mellitus without complication [...] J01.00 and Encounter for Depo-Provera contraception Z30.42 [facility] [address] [address]- 6145 Dec, Chronic pain G89.29 [facility] [id number] [place] [address] 18295- 7766 Dec, Abnormal ankle brachial index (BERNARDINO) R68.89 [facility] [id number] [place] [address] 45369- 1027 Dec, [facility] [id number] [place] [address] 70869- 5106 Dec, Routine gynecological examination Z01.419 ; Chronic [...] virus) infection B00.9 and Allergic rhinitis 477.9 [facility] [id number] [place] [address] 95263- 1692 Nov, Chronic pain G89.29 [facility] [id number] [place] [address] 44389- 6928 02 Nov, 2016 Chronic pain G89.29 ; [...] mucoid otitis media of both ears H65.[address] [place] [address] 88600- 6202 Oct, [facility] [id number] [place] [address] 83464- 8505 Oct, Chronic pain G89.29 [facility] [id number] [place] [address] 46400- 6210 Oct, Chronic pain G89.29 [facility] [id number] [place] [address] 28059- 1407 Sep, Chronic pain G89.29 ; Type 2 diabetes mellitus without complication E11.9 ; Essential hypertension I10 ; Radiculopathy of lumbar region M54.16 ; Spinal stenosis, lumbar region M48.06 ; Gastroesophageal reflux disease without esophagitis K21.9 ; Encounter for surveillance of injectable contraceptive Z30.42 ; Bilateral cold feet R20.9 ; Pain of left foot M79.672 and Pain in right foot M79.671 [facility] [id number] [place] [address] 89069- 7129 Sep, [facility] [id number] [place] [address] 39311- 1811 Aug, [facility] [address] 84526- 1701 Aug, [facility] [address] 37373- 0359 Aug, Chronic pain G89.29 ; Type 2 diabetes mellitus without complication E11.9 ; Essential hypertension I10 ; Rash and nonspecific skin eruption R21 and Upper respiratory infection, acute J06.9 [facility] [address] 99793- 9778 Aug, [facility] [address] 10053- 6045 Aug, [facility] [address] 73160- 0386 Jul, [facility] [id number] [place] [address] 36878- 0018 Jul, Dysuria R30.0 ; Encounter for Depo-Provera contraception Z30.42 ; Herpes simplex B00.9 ; Nausea & vomiting R11.2 and Asthma J45.909 [facility] [id number] [place] [address] 99076- 1491 Jun, Dysuria R30.0 [facility] [address] 77599- 8370 19 Jun, 2016 Dysuria R30.0 [facility] [address] 66741- 2403 15 Jun, 2016 [facility] [address] 71001- 3954 Jun, [facility] [id number] [place] [address] 60627- 3870 May, [facility] [id number] [place] [address] 76142- 3369 May, [facility] [id number] [place] [address] 97561- 7320 May, Chronic pain G89.29 ; Essential hypertension I10 ; Type 2 diabetes mellitus without complication E11.9 ; Edema of both feet R60.0 and Rash and nonspecific skin eruption R21 [facility] [id number] [place] [address] 44842- 9098 Apr, [facility] [id number] [place] [address] 25139- 1788 Mar, Carpal tunnel syndrome, left upper limb G56.02 and Carpal tunnel syndrome, right upper limb G56.01 [facility] [id number] [place] [address] 87471- 5307 Mar, [facility] [id number] [place] [address] 01454- 7106 Mar, Encounter for Depo-Provera contraception Z30.42 [facility] [id number] [place] [address] 45378- 8139 February, [facility] [id number] [place] [address] 35255- 9498 February, [facility] [id number] [place] [address] 52004- 2532 February, Chronic pain G89.29 ; Essential hypertension I10 ; Type 2 diabetes mellitus without complication E11.9 ; HSV (herpes simplex virus) infection B00.9 ; Anxiety F41.9 ; Hypersomnia G47.10 ; Tobacco abuse Z72.0 ; Hand pain, left M79.642 ; Hand pain, right M79.641 ; Left foot pain M79.672 and Heart palpitations R00.2 [facility] [address] [address]- 4651 Jan, [facility] [id number] [place] [address] 22222- 9565 Jan, [facility] [address] [place] [address] 71195- 8394 Jan, [facility] [id number] [place] [address] 94547- 6482 Jan, [facility] [id number] [place] [address] 59103- 6468 14 Jan, 2016 Upper respiratory infection J06.9 and Type 2 diabetes mellitus without complication E11.9 [facility] [id number] [place] [address] 11468- 2073 Dec, [facility] [id number] [place] [address] 98835- 3097 Dec, Chronic pain G89.29 ; Essential hypertension I10 ; Type 2 diabetes mellitus without complication E11.9 ; HSV (herpes simplex virus) infection B00.9 ; Anxiety F41.9 ; Upper respiratory infection J06.9 ; Hypersomnia G47.10 and Tobacco abuse Z72.0 [address] [address]- 9669 Dec, Encounter for Depo-Provera contraception Z30.42 [facility] [place] [id number] [place] [address] 91923- 3564 Dec, [facility] [id number] [place] [address] 29280- 7708 Dec, Chronic pain G89.29 ; Sinusitis J32.9 ; Snoring R06.83 and Daytime hypersomnia G47.19 [address] [address]- 6460 Nov, HSV (herpes simplex virus) infection B00.9 ; Encounter for Papanicolaou smear for cervical cancer screening Z12.4 ; Screening for STD sexually transmitted disease Z11.3 and Bartholin's gland cyst N75.0 [facility] [id number] [place] [address] 45098- 2360 Nov, [facility] [id number] [place] [address] 99917- 1756 Nov, [facility] [id number] [place] [address] 72983- 4374 Nov, Essential hypertension I10 ; Type 2 diabetes mellitus without complication E11.9 ; HSV (herpes simplex virus) infection B00.9 ; Spinal stenosis, lumbar region M48.06 and Vaginal yeast infection B37.3 [facility] [id number] [place] [address] 95042- 0038 Nov, [facility] [id number] [place] [address] 34838- 5334 Nov, [facility] [id number] [place] [address] 68053- 7370 Oct, [facility] [id number] [place] [address] 69368- 9047 Oct, HSV (herpes simplex virus) infection B00.9 ; Yeast infection B37.9 ; Change in bowel habit R19.4 ; Nausea & vomiting R11.2 and Gastroesophageal reflux disease without esophagitis K21.9 [facility] [address] [place] [address] 85681- 3664 Oct, [facility] [id number] [place] [address] 55656- 4890 Oct, Type 2 diabetes mellitus without complication E11.9 ; Essential hypertension I10 and Acute maxillary sinusitis, recurrence not specified J01.00 [facility] [address] [place] [address] 47565- 2169 Oct, [facility] [id number] [place] [address] 68177- 5564 Oct, [facility] [place] 40864- 8194 Oct, Exposure to head lice Z20.7 ; Blood glucose abnormal R73.09 ; Boil of buttock L02.32 and Type 2 diabetes mellitus without complication E11.[address] 28643- 4127 Oct, [address] 84807- 4292 Sep, [address] 26396- 4774 Sep, [address] 37379- 9009 Aug, Encounter for Depo-Provera contraception Z30.[address] 28649- 5643 Aug, Anxiety F41.9 ; Spinal stenosis, lumbar region M48.06 ; Radiculopathy of lumbar region M54.16 ; Asthma J45.909 ; GERD (gastroesophageal reflux disease) K21.9 ; Essential hypertension I10 and Long-term use of high- risk medication Z79.[address] 02276- 3923 Jul, [address] 85449- 5776 Jun, Hemorrhoid 455.[address] 29772- 0721 Jun, [address] 88878- 7077 Jun, Anxiety 300.00 ; Asthma 493.90 ; Hyperhidrosis 705.21 ; Chest discomfort 786.59 and Upper respiratory infection 465.[address] 56301- 9820 May, Encounter for Depo-Provera contraception V25.49 [facility] [address] [place] [address] 82516- 0881 May, [facility] [id number] [place] [address] 80761- 9362 May, [facility] [id number] [place] [address] 88074- 2122 May, Spinal stenosis of lumbar region with radiculopathy 724.02 ; Bulging of intervertebral disc between L4 and L5 722.10 ; GERD ( gastroesophageal reflux disease) 530.81 ; Chronic pain 338.29 ; Declining mobility 799.89 and Epigastric pain 789.06 [facility] [address] 32361- 8112 Apr, [facility] [address] 78911- 3094 Apr, Nausea 787.02 and Heart burn 787.1 [facility] [address] 00541- 9486 Mar, Lumbago 724.2 ; Vitamin D deficiency 268.9 ; Anxiety 300.00 ; Allergic rhinitis 477.9 and Contraceptive surveillance V25.40 [facility] [id number] [place] [address] 86963- 1349 February, 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 ; Chronic pain 338.29 and Vaginal discharge 623.5 [facility] [id number] [place] [address] 34638- 1142 February, [facility] [id number] [place] [address] 78814- 2908 February, [facility] [id number] [place] [address] 04341- 3416 Jan, [facility] [id number] [place] [address] 19143- 6526 Jan, [facility] [address] [place] [address] [place] [address]- 0485 26 Dec, 2014 [facility] [place] [facility] [address] [id number] [place] [address]- 4418 Dec, [facility] [place] [facility] [address] [id number] [place] [address]- 1854 Dec, [facility] [place] [facility] [address] [id number] [place] [address]- 5315 Dec, [facility] [place] [facility] [address] [id number] [place] [address]- 4728 18 Dec, 2014 [facility] [place] [facility] [address] [id number] [place] [address]- 0292 18 Dec, 2014 [facility] [place] [facility] [address] [id number] [place] [address]- 5191 Dec, [facility] [place] [facility] [address] [id number] [place] [address]- 7019 Dec, [facility] [place] [facility] [address] [id number] [place] [address]- 1845 Dec, [facility] [place] [facility] [address] [id number] [place] [address]- 2318 Dec, [facility] [place] [facility] [address] [facility] [id number] [place] [address]- 1599 Dec, [facility] [place] [facility] [address] [id number] [place] [address]- 8507 Dec, [facility] [place] [facility] [address] [id number] [place] [address]- 1386 Nov, [facility] [place] [facility] [address] [id number] [place] [address]- 5154 Nov, [facility] [place] [facility] [address] [id number] [place] [address]- 8587 Nov, [facility] [place] [facility] [address] [id number] [place] [address]- 7664 Nov, [facility] [place] [facility] [address] [id number] [place] [address]- 2173 23 Nov, 2014 [facility] [place] [facility] [address] [id number] [place] [address]- 0064 23 Nov, 2014 [facility] [place] [facility] [address] [facility] [id number] [place] [address]- 2479 16 Nov, 2014 [facility] [place] [facility] [address] [facility] [id number] [place] [address]- 7757 16 Nov, 2014 [facility] [place] [facility] [address] [id number] [place] [address]- 9908 13 Nov, 2014 [facility] [place] [facility] [address] [facility] [id number] [place] [address]- 6478 13 Nov, 2014 [facility] [place] [facility] [address] [facility] [id number] [place] [address] 13 Nov, 2014 [facility] [place] [facility] [address] [facility] [id number] [place] [address] 13 Nov, 2014 [facility] [place] [facility] [address] [facility] [id number] [place] [address] 13 Nov, 2014 [facility] [place] [facility] [address] [facility] [id number] [place] [address] 13 Nov, 2014 [facility] [place] [facility] [address] [facility] [id number] [place] [address] 13 Nov, 2014 [facility] [place] [facility] [address] [facility] [id number] [place] [address] 13 Nov, 2014 [facility] [place] [facility] [address] [facility] [id number] [place] [address] 10 Nov, 2014 [facility] [place] [facility] [address] [facility] [id number] [place] [address] 10 Nov, 2014 [facility] [place] [facility] [address] [facility] [id number] [place] [address] 09 Nov, 2014 [facility] [place] [facility] [address] [id number] [place] [address] Nov, [facility] [place] [facility] [address] [id number] [place] [address] Nov, [facility] [place] [facility] [address] [id number] [place] [address] Nov, [facility] [place] [facility] [address] [id number] [place] [address] Nov, [facility] [place] [facility] [address] [id number] [place] [address] Oct, [facility] [place] [facility] [address] [id number] [place] [address] Oct, [facility] [place] [facility] [address] [id number] [place] [address] 5762 Oct, [facility] [place] [facility] [address] [id number] [place] [address] 5023 Oct, [facility] [place] [facility] [address] [id number] [place] [address] 4210 Oct, [facility] [place] [facility] [address] [id number] [place] [address] 2979 Oct, [facility] [place] [facility] [address] [id number] [place] [address] 1571 Oct, [facility] [place] [facility] [address] [id number] [address] Oct, [facility] [place] [facility] [address] [id number] [place] [address] 6535 Oct, [facility] [place] [facility] [address] [id number] [place] [address]- 9471 Oct, [facility] [place] [facility] [address] [id number] [place] [address]- 0668 Oct, [facility] [place] [facility] [address] [id number] [place] [address] 69[address] Oct, [facility] [address] [id number] [place] [address]- 0430 Oct, [facility] [place] [facility] [address] [id number] [place] [address] 7487 Oct, [facility] [place] [facility] [address] [facility] [id number] [place] [address] 5115 Oct, [facility] [place] [facility] [address] [id number] [place] [address]- 0925 Oct, [facility] [place] [facility] [address] [id number] [place] [address]- 9646 Oct, [facility] [place] [facility] [address] [id number] [place] [address]- 5461 Oct, [facility] [address] [id number] [place] [address]- 9784 Oct, [facility] [place] [facility] [address] [id number] [place] [address]- 3101 Oct, [facility] [place] [facility] [address] [id number] [place] [address]- 5793 Oct, [facility] [place] [facility] [address] [facility] [id number] [place] [address]- 9885 Sep, [facility] [place] [facility] [address] [id number] [place] [address]- 5821 29 Sep, 2014 [facility] [place] [facility] [address] [id number] [address] 1831 Sep, [facility] [place] [facility] [address] [id number] [place] [address]- 3253 18 Sep, 2014 [facility] [place] [facility] [address] [facility] [id number] [place] [address]- 0810 17 Sep, 2014 [facility] [place] [facility] [address] [facility] [id number] [place] [address]- 8140 17 Sep, 2014 [facility] [place] [facility] [address] [id number] [place] [address]- 8156 15 Sep, 2014 [facility] [place] [facility] [address] [id number] [place] [address]- 9016 15 Sep, 2014 [facility] [place] [facility] [address] [id number] [place] [address]- 8366 12 Sep, 2014 [facility] [place] [facility] [address] [id number] [place] [address]- 6236 12 Sep, 2014 [facility] [place] [facility] [address] [id number] [place] [address]- 6929 Sep, [facility] [place] [facility] [address] [id number] [place] [address]- 3509 Sep, [facility] [place] [facility] [address] [id number] [place] [address]- 8141 Sep, [facility] [place] [facility] [address] [id number] [place] [address]- 8708 Sep, [facility] [place] [facility] [address] [id number] [place] [address]- 3612 Sep, [facility] [place] [facility] [address] [id number] [place] [address]- 2941 Sep, [facility] [place] [facility] [address] [id number] [place] [address]- 6191 Sep, [facility] [place] [facility] [address] [id number] [place] [address]- 4188 Sep, [facility] [place] [facility] [address] [id number] [place] [address]- 9563 Sep, [facility] [place] [facility] [address] [id number] [place] [address]- 0736 Sep, [facility] [place] [facility] [address] [id number] [place] [address]- 8598 Aug, [facility] [place] [facility] [address] [id number] [place] [address]- 2813 Aug, [facility] [place] [facility] [address] [id number] [place] [address]- 3878 Aug, [facility] [place] [facility] [address] [id number] [place] [address]- 9877 Aug, [facility] [place] [facility] [address] [id number] [place] [address]- 3506 Aug, [facility] [place] [facility] [address] [id number] [place] [address]- 2994 Aug, [facility] [place] [facility] [address] [id number] [place] [address]- 0799 Aug, [facility] [place] [facility] [address] [id number] [place] [address]- 2590 Aug, [facility] [place] [facility] [address] [id number] [place] [address]- 5110 Aug, [facility] [place] [facility] [address] [id number] [place] [address]- 5493 Jul, [facility] [place] [facility] [address] [id number] [place] [address]- 0799 Jul, [facility] [place] [facility] [address] [id number] [place] [address]- 6517 Jul, [facility] [place] [facility] [address] [id number] [address] 9904 Jul, [facility] [place] [facility] [address] [id number] [place] [address] Jul, [facility] [place] [facility] [address] [id number] [place] [address]- 0243 16 Jul, 2014 [facility] [place] [facility] [address] [id number] [place] [address]- 4103 Jul, [facility] [place] [facility] [address] [id number] [address]- 8438 Jul, [facility] [place] [facility] [address] [id number] [place] [address]- 3109 10 Jul, 2013 [facility] [place] [facility] [address] [id number] [place] [address]- 5376 10 Jul, 2013 [facility] [place] [facility] [address] [id number] [place] [address]- 0816 10 Jul, 2014 [facility] [place] [facility] [address] [id number] [place] [address]- 3096 10 Jul, 2014 [facility] [place] [facility] [address] [id number] [place] [address]- 0811 07 Jul, 2014 [facility] [place] [facility] [address] [id number] [place] [address]- 3213 07 Jul, 2014 [facility] [place] [facility] [address] [id number] [place] [address]- 1053 30 Jun, 2013 [facility] [place] [facility] [address] [id number] [place] [address]- 6542 30 Jun, 2013 [facility] [place] [facility] [address] [id number] [place] [address] 2549 25 Sep, 2013 [facility] [place] [facility] [address] [id number] [place] [address] 2546 25 Sep, 2013 [facility] [place] [facility] [address] [id number] [place] [address] 2549 25 Sep, 2013 [facility] [place] [facility] [address] [id number] [place] [address] 2546 25 Sep, 2013 [facility] [place] [facility] [address] [id number] [place] [address] 2546 24 Sep, 2013 [facility] [place] [facility] [address] [id number] [place] [address] 2546 24 Sep, 2013 [facility] [place] [facility] [address] [id number] [place] [address] 2546 22 Sep, 2013 [facility] [place] [facility] [address] [id number] [place] [address] 2547 22 Sep, 2013 [facility] [place] [facility] [address] [id number] [place] [address]- 4941 17 Sep, 2013 [facility] [place] [facility] [address] [id number] [place] [address]- 5364 17 Sep, 2013 [facility] [place] [facility] [address] [id number] [place] [address]- 2540 16 Jun, 2013 [facility] [place] [facility] [address] [id number] [place] [address] 2541 16 Jun, 2013 [facility] [place] [facility] [address] [id number] [place] [address]- 0032 15 Jun, 2013 [facility] [place] [facility] [address] [id number] [place] [address]- 1825 15 Jun, 2013 [facility] [place] [facility] [address] [id number] [place] [address]- 7577 12 Jun, 2013 [facility] [place] [facility] [address] [id number] [place] [address]- 8069 12 Jun, 2013 [facility] [place] [facility] [address] [id number] [place] [address]- 1900 11 Jun, 2013 [facility] [place] [facility] [address] [id number] [place] [address]- 3311 11 Jun, 2013 [facility] [place] [facility] [address] [id number] [place] [address]- 0866 11 Jun, 2013 [facility] [place] [facility] [address] [id number] [place] [address]- 2540 11 Jun, 2013 [facility] [place] [facility] [address] [id number] [place] [address]- 2541 09 Sep, 2013 [facility] [place] [facility] [address] [id number] [place] [address]- 2544 09 Sep, 2013 [facility] [place] [facility] [address] [id number] [place] [address]- 4309 03 Sep, 2013 [facility] [place] [facility] [address] [id number] [place] [address]- 1858 Jun, [facility] [place] [facility] [address] [id number] [place] [address]- 6961 May, [facility] [place] [facility] [address] [id number] [place] [address]- 6715 May, [facility] [place] [facility] [address] [id number] [place] [address]- 7348 May, [facility] [place] [facility] [address] [id number] [place] [address]- 5453 May, [facility] [place] [facility] [address] [id number] [place] [address]- 1267 May, [facility] [place] [facility] [address] [id number] [place] [address]- 5672 May, [facility] [place] [facility] [address] [id number] [place] [address]- 0665 May, [facility] [place] [facility] [address] [id number] [place] [address]- 5857 May, [facility] [place] [facility] [address] [id number] [place] [address]- 3769 May, [facility] [place] [facility] [address] [id number] [place] [address]- 0406 May, [facility] [place] [facility] [address] [id number] [place] [address]- 2034 May, [facility] [place] [facility] [address] [id number] [place] [address]- 4477 May, [facility] [place] [facility] [address] [id number] [place] [address]- 2916 May, [facility] [place] [facility] [address] [id number] [place] [address]- 2206 Apr, [facility] [place] [facility] [address] [id number] [place] [address]- 7659 Apr, [facility] [place] [facility] [address] [id number] [place] [address]- 6144 Apr, [facility] [address] [id number] [place] [address]- 9573 Apr, [facility] [place] [facility] [address] [id number] [place] [address]- 7206 Apr, [facility] [address] [id number] [place] [address]- 4309 Mar, [facility] [place] [facility] [address] [id number] [place] [address]- 9969 Mar, [facility] [address] [id number] [place] [address]- 5392 Mar, [facility] [address] [id number] [place] [address]- 6469 February, [facility] [place] [facility] [address] [id number] [place] [address]- 4460 February, [facility] [address] [id number] [place] [address]- 4874 February, [facility] [place] [facility] [address] [id number] [place] [address]- 2248 February, [facility] [address] [id number] [place] [address]- 9263 February, [facility] [place] [facility] [address] [id number] [place] [address]- 3438 February, [facility] [place] [facility] [address] [id number] [place] [address]- 1635 February, [facility] [place] [facility] [address] [id number] [place] [address]- 2761 February, [facility] [place] [facility] [address] [id number] [place] [address]- 8026 February, [facility] [place] [facility] [address] [id number] [place] Jan, [facility] [place] [facility] [address] [id number] [place] [address]- 1275 Jan, [facility] [place] [facility] [address] [id number] [place] [address]- 8326 Jan, [facility] [place] [facility] [address] [id number] [place] [address]- 2097 Jan, [facility] [place] [facility] [address] [id number] [place] [address]- 1563 Jan, [facility] [place] [facility] [address] [id number] [place] [address]- 1063 Dec, [facility] [place] [facility] [address] [id number] [place] [address]- 6414 Dec, [facility] [place] [facility] [address] [id number] [place] [address]- 9837 Dec, [facility] [place] [facility] [address] [id number] [place] [address]- 2681 Dec, [facility] [place] [facility] [address] [id number] [place] [address]- 4226 Dec, [facility] [place] [facility] [address] [id number] [place] [address]- 3024 Nov, [facility] [place] [facility] [address] [id number] [place] [address]- 7618 Nov, [facility] [place] [facility] [address] [id number] [place] [address]- 7385 Nov, [facility] [place] [facility] [address] [id number] [place] [address]- 9976 Nov, [facility] [place] [facility] [address] [id number] [place] [address]24 Oct, [facility] [place] [facility] [address] [id number] [place] [address]- 9688 Oct, [facility] [place] [facility] [address] [id number] [place] [address]- 1580 28 Oct, 2013 [facility] [place] [facility] [address] [id number] [place] [address]- 9225 Oct, [facility] [place] [facility] [address] [id number] [place] [address]- 9314 Oct, [facility] [place] [facility] [address] [id number] [place] [address]- 0271 Oct, [facility] [place] [facility] [address] [id number] [place] [address]- 4004 Oct, [facility] [place] [facility] [address] [id number] [place] [address]- 7353 Oct, [facility] [place] [facility] [address] [id number] [place] [address]- 0101 Oct, [facility] [place] [facility] [address] [id number] [place] [address]- 5751 Oct, [facility] [place] [facility] [address] [id number] [place] [address]- 5235 Aug, [facility] [place] [facility] [address] [id number] [place] [address]- 9103 Aug, [facility] [place] [facility] [address] [id number] [place] [address]- 2276 Jul, [facility] [place] [facility] [address] [id number] [place] [address]- 8544 Jul, [facility] [place] [facility] [address] [id number] [place] [address]- 9630 Jul, [facility] [place] [facility] [address] [id number] [place] [address]- 1503 Jul, [facility] [place] [facility] [address] [id number] [place] [address]- 8766 Jul, [facility] [place] [facility] [address] [id number] [place] [address]- 6945 Jul, [facility] [place] [facility] [address] [id number] [place] [address]- 3797 Apr, [facility] [place] [facility] [address] [id number] [place] [address]- 0482 Dec, [facility] [place] [facility] [address] [id number] [place] [address]- 9895 Nov, [facility] [place] [facility] [address] [id number] [place] [address]- 3548 Nov, [facility] [place] [facility] [address] [id number] [place] [address]- 3026 Nov, [facility] [place] [facility] [address] [id number] [place] [address]- 7473 Oct, [facility] [place] [facility] [address] [id number] [place] [address]- 5560 Sep, [facility] [place] [facility] [address] [id number] [place] [address]- 5953 Sep, [facility] [place] [facility] [address] [id number] [place] [address]- 0425 Sep, [facility] [place] [facility] [address] [id number] [place] [address]- 8092 Sep, [facility] [place] [facility] [address] [id number] [address]- 6783 Aug, [facility] [place] [facility] [address] [id number] [address]- 0666 Aug, [facility] [place] [facility] [address] [id number] [place] [address]- 2772 Jul, [facility] [place] [facility] [address] [id number] [place] [address]- 7008 Jul, [facility] [place] [facility] [address] [id number] [address]- 9915 28 Jun, 2012 [facility] [place] [facility] [address] [id number] [address]- 2497 26 Jun, 2012 [facility] [place] [facility] [address] [id number] [place] [address]- 5766 24 Jun, 2012 [facility] [place] [facility] [address] [id number] [place] [address]- 1346 24 Jun, 2012 [facility] [place] [facility] [address] [id number] [place] [address]- 4236 Jun, [facility] [place] [facility] [address] [id number] [place] [address]- 8125 31 Apr, 2012 [facility] [place] [facility] [address] [id number] [place] [address]- 8674 30 Apr, 2012 [facility] [place] [facility] [address] [id number] [place] [address]- 9798 Apr, [facility] [address] [id number] [place] [address]- 5219 Mar, [facility] [place] [facility] [address] [id number] [place] [address]- 4998 Mar, [facility] [place] [facility] [address] [id number] [place] [address]- 0800 Mar, [facility] [place] [facility] [address] [id number] [place] [address]- 9377 February, [facility] [place] [facility] [address] [id number] [place] [address]- 7138 Jan, [facility] [place] [facility] [address] [id number] [place] [address]- 1370 Dec, [facility] [place] [facility] [address] [id number] [place] [address]- 3240 Dec, [facility] [place] [facility] [address] [id number] [place] [address]- 9817 Dec, [facility] [place] [facility] [address] [id number] [place] [address]- 9748 Dec, [facility] [place] [facility] [address] [id number] [place] [address]- 4808 Dec, [facility] [place] [facility] [address] [id number] [place] [address]- 9175 14 Nov, 2011 [facility] [place] [facility] [address] [id number] [place] [address]- 5196 13 Nov, 2011 [facility] [place] [facility] [address] [id number] [place] [address]- 3666 Oct, [facility] [place] [facility] [address] [id number] [place] [address]- 5473 Oct, [facility] [place] [facility] [address] [id number] [place] [address]- 8081 Oct, [facility] [place] [facility] [address] [id number] [place] [address]- 2861 Sep, [facility] [place] [facility] [address] [id number] [place] [address] Aug, [facility] [place] [facility] [address] [id number] [place] [address] Aug, [facility] [place] [facility] [address] [id number] [place] [address] Jul, [facility] [place] [facility] [address] [id number] [place] [address] 24 Jul, 2011 [facility] [place] [facility] [address] [id number] [place] [address] 19 Jul, 2011 [facility] [place] [facility] [address] [id number] [place] [address] 13 Jan, 2011 [facility] [place] [facility] [address] [id number] [place] [address] 29 Sep, 2010 [facility] [place] [facility] [address] [id number] [place] [address] 27 Sep, 2010 [facility] [place] [facility] [address] [id number] [place] [address] Sep, [facility] [place] [facility] [address] [id number] [place] [address] Sep, [facility] [place] [facility] [address] [id number] [place] [address] Sep, [facility] [place] [facility] [address] [facility] [id number] [place] [address] Aug, [facility] [place] [facility] [address] [id number] [place] [address] 16 Aug, 2010 [facility] [place] [facility] [address] [id number] [place] [address] Aug, [facility] [place] [facility] [address] [id number] [place] [address] Jul, [facility] [place] [facility] [address] [id number] [place] [address] Jul, [facility] [place] [facility] [address] [id number] [address] Jul, [facility] [place] [facility] [address] [id number] [address] May, [facility] [place] [facility] [address] [id number] [address] Apr, [facility] [place] [facility] [address] [id number] [place] [address] Dec, [facility] [place] [facility] [address] [id number] [address] 17 Sep, 2009 [facility] [place] [facility] [address] [id number] [place] [address] 17 Sep, 2009 [facility] [place] [facility] [address] [id number] [place] [address] Aug, [facility] [place] [facility] [address] [id number] [place] [address] Aug, [facility] [place] [facility] [address] [facility] [id number] [place] [address] Jul, [facility] [address] [facility] [id number] [place] [address] Mar, IMMUNIZATIONS No Known Immunizations SOCIAL HISTORY Never Assessed REASON FOR VISIT BS f/u PLAN OF CARE VITAL SIGNS MEDICATIONS Medication Instructions Dosage Frequency Start Date End Date Duration Status Levemir Flexpen 100 UNIT/ML Subcutaneous twice a day 12 units 12h Active NovoLog Flexpen 100 UNIT/ML Subcutaneous before meals 10 units Active RESULTS No Results PROCEDURES No Known [...]
--- OUTSIDE RECORDS SUMMARY | 2018-10-08 19:58 | XMS REPORT ---
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 066191227 Problem Edema of both feet R60.0 Active 054455307 Problem Tobacco abuse Z72.0 Active 27467817 Problem Chronic migraine G43.709 Active 57035646 Problem Mixed hyperlipidemia E78.2 Active 732116411 Problem Spinal stenosis, lumbar region M48.06 Active 15340943 Problem Anxiety F41.9 Active 37179624 Problem Radiculopathy of lumbar region M54.16 Active 359716797 Problem Bulging lumbar disc M51.26 Active 328085751 Problem Asthma J45.909 Active 954311743 Problem Essential hypertension I10 Active 12964054 ALLERGIES No Information ENCOUNTERS Encounter Location Date Diagnosis [facility] [id number] [place] [address] 49627- 3636 February, Chronic pain G89.29 [facility] [id number] [place] [address] 46666- 0162 Jan, Chronic pain G89.29 [facility] [id number] [place] [address] 24809- 8763 Jan, custodial 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 Z79.4 [facility] [id number] [place] [address] 47838- 2073 09 Jan, 2018 Encounter for Depo-Provera contraception Z30.42 [facility] [id number] [place] [address] 29394- 9660 Jan, [facility] [id number] [place] [address] 60436- 1471 Jan, Chronic pain G89.29 and Anxiety F41.9 [facility] [address] 59570- 8109 Jan, [facility] [id number] [place] [address] 25287- 8039 14 Dec, 2017 [facility] [id number] [place] [address] 87329- 7976 14 Dec, 2017 Gastroesophageal reflux disease without esophagitis K21.9 and Anxiety F41.9 [facility] [address] 34210- 2268 Dec, Essential hypertension I10 ; Mixed hyperlipidemia E78.2 ; Type 2 diabetes mellitus with diabetic neuropathy, unspecified E11.40 ; custodial 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 Z79.4 ; Chronic pain G89.29 ; HSV (herpes simplex virus) infection B00.9 ; Anxiety F41.9 and Gastroesophageal reflux disease without esophagitis K21.9 [facility] [id number] [place] [address] 53648- 9876 07 Dec, 2017 Chronic pain G89.29 and Chronic migraine G43.709 [facility] [id number] [place] [address] 62494- 3452 Nov, [facility] [id number] [place] [address] 37944- 6367 Nov, Essential hypertension I10 and Chronic pain G89.29 [facility] [id number] [place] [address] 97053- 7627 05 Nov, 2017 Chronic pain G89.29 ; Essential hypertension I10 and Type 2 diabetes mellitus without complication E11.9 [facility] [id number] [address] 15862- 8785 Oct, Chronic pain G89.29 [facility] [id number] [address] 61762- 4495 Oct, [facility] [id number] [place] [address] 62212- 5565 Sep, Type 2 diabetes mellitus without complication E11.9 ; Essential hypertension I10 ; custodial (current) use of insulin Z79.4 ; Chronic migraine G43.709 ; Chronic pain G89.29 and Acute non-recurrent maxillary sinusitis J01.00 [facility] [id number] [place] [address] 22797- 6442 19 Sep, 2017 Encounter for Depo-Provera contraception Z30.42 [facility] [id number] [place] [address] 45343- 6244 13 Sep, 2017 Chronic pain G89.29 and Radiculopathy of lumbar region M54.16 [facility] [id number] [place] [address] 75741- 1242 Sep, [facility] [id number] [place] [address] 80518- 1408 Sep, [facility] [id number] [place] [address] 92329- 8625 Aug, Type 2 diabetes mellitus without complication E11.9 [facility] [id number] [place] [address] 24015- 8148 Aug, [facility] [id number] [place] [address] 01264- 8178 Aug, Radiculopathy of lumbar region M54.16 and Chronic pain G89.29 [facility] [id number] [place] [address] 78946- 9370 09 Aug, 2017 Type 2 diabetes mellitus without complication E11.9 [facility] [id number] [place] [address] 91154- 5476 Aug, Type 2 diabetes mellitus without complication E11.9 [facility] [address] [address] 3729 Jul, Type 2 diabetes mellitus without complication E11.9 [facility] [address] [address]- 2057 Jul, [facility] [id number] [address] 22033- 7447 Jul, Chronic pain G89.29 [facility] [id number] [place] [address] 10304- 7994 Jul, [facility] [id number] [place] [address] 70450- 3173 Jul, [facility] [id number] [place] [address] 17310- 0730 Jul, Type 2 diabetes mellitus without complication E11.9 [facility] [id number] [place] [address] 62337- 4321 Jul, [facility] [address] [address]- 4820 Jul, Type 2 diabetes mellitus without complication E11.9 [facility] [address] [address]- 1657 Jul, [facility] [address] [address]- 2572 Jul, [facility] [address] [address]- 9255 Jul, [facility] [address] [address]- 6860 Jun, Type 2 diabetes mellitus without complication E11.9 [facility] [address] [address]- 9623 Jun, Chronic migraine G43.709 ; Type 2 diabetes mellitus without complication E11.9 ; Calculus of right kidney N20.0 ; Yeast dermatitis B37.2 and HSV (herpes simplex virus) infection B00.9 [facility] [id number] [place] [address] 50845- 4935 Jun, Type 2 diabetes mellitus without complication E11.9 [facility] [address] 48924- 7306 Jun, [facility] [address] 36586- 0492 Jun, Radiculopathy of lumbar region M54.16 and Chronic pain G89.29 [facility] [address] 95813- 1792 Jun, Encounter for Depo-Provera contraception Z30.42 [facility] [address] 77408- 2195 Jun, Type 2 diabetes mellitus without complication E11.9 [facility] [address] 46628- 8953 Jun, [facility] [id number] [place] [address] 42398 -0104 May, Acute nasopharyngitis (common cold) J00 [facility] [id number] [place] [address] 86767- 2075 May, Chronic pain G89.29 [facility] [address] 93325- 7792 May, Headache following lumbar puncture G97.1 [facility] [address] 07620- 3310 May, Radiculopathy of lumbar region M54.16 [facility] [address] 46936- 8600 Apr, [facility] [address] 49590- 4777 Apr, Type 2 diabetes mellitus without complication E11.9 ; Chronic pain G89.29 ; Essential hypertension I10 ; Radiculopathy of lumbar region M54.16 ; Spinal stenosis, lumbar region M48.06 ; Gastroesophageal reflux disease without esophagitis K21.9 ; HSV (herpes simplex virus) infection B00.9 ; Mixed hyperlipidemia E78.2 ; Anxiety F41.9 and Asthma J45.909 [facility] [id number] [place] [address] 00518- 7813 Apr, Encounter for Depo-Provera contraception Z30.42 [facility] [address] 93330- 3909 Apr, Chronic pain G89.29 and Anxiety F41.[address] 76586- 9654 Mar, [facility] [address] 08964- 9451 Mar, [facility] [address] 34129- 1508 Mar, Mixed hyperlipidemia E78.2 [facility] [id number] [place] [address] 17366- 5602 Mar, Type 2 diabetes mellitus without complication E11.9 ; Chronic pain G89.29 ; Essential hypertension I10 ; Radiculopathy of lumbar region M54.16 ; Spinal stenosis, lumbar region M48.06 ; Gastroesophageal reflux disease without esophagitis K21.9 ; HSV (herpes simplex virus) infection B00.9 ; Mixed hyperlipidemia E78.2 and Anxiety F41.9 [facility] [id number] [place] [address] 15516- 6251 Mar, [facility] [address] 61801- 7408 Mar, [facility] [id number] [place] [address] 26874- 4903 Mar, [facility] [id number] [place] [address] 46783- 1249 February, Chronic pain G89.29 [facility] [address] [address]- 4820 February, [facility] [id number] [address] 56522- 5464 Jan, Chronic pain G89.29 [facility] [id number] [place] [address] 32497- 7108 Jan, Type 2 diabetes mellitus without complication E11.9 [facility] [id number] [place] [address] 41382- 8586 Jan, [facility] [id number] [address] 41725- 4205 Jan, [facility] [id number] [place] [address] 00531- 9761 Jan, [facility] [id number] [place] [address] 63975- 2299 Jan, Type 2 diabetes mellitus without complication [...] contraception Z30.42 [facility] [address] [address]- 3542 Dec, Chronic pain G89.29 [facility] [id number] [address] 37042- 5657 Dec, Abnormal ankle brachial index (BERNARDINO) R68.89 [facility] [id number] [place] [address] 82045- 6233 Dec, [facility] [id number] [place] [address] 51551- 7027 Dec, Routine gynecological examination Z01.419 ; Chronic [...] virus) infection B00.9 and Allergic rhinitis 477.9 [facility] [id number] [place] [address] 73302- 3293 Nov, Chronic pain G89.29 [facility] [id number] [place] [address] 74505- 5152 02 Nov, 2016 Chronic pain G89.29 ; [...] mucoid otitis media of both ears H65.[address] [place] [address] 71094- 0975 Oct, [facility] [id number] [address] 92307- 8326 Oct, Chronic pain G89.29 [facility] [id number] [place] [address] 35690- 8585 Oct, Chronic pain G89.29 [facility] [id number] [place] [address] 66922- 9739 Sep, Chronic pain G89.29 ; Type 2 diabetes mellitus without complication E11.9 ; Essential hypertension I10 ; Radiculopathy of lumbar region M54.16 ; Spinal stenosis, lumbar region M48.06 ; Gastroesophageal reflux disease without esophagitis K21.9 ; Encounter for surveillance of injectable contraceptive Z30.42 ; Bilateral cold feet R20.9 ; Pain of left foot M79.672 and Pain in right foot M79.671 [facility] [id number] [place] [address] 17902- 6157 Sep, [facility] [id number] [place] [address] 96457- 1817 Aug, [facility] [address] 51973- 5641 Aug, [facility] [address] 61297- 5124 Aug, Chronic pain G89.29 ; Type 2 diabetes mellitus without complication E11.9 ; Essential hypertension I10 ; Rash and nonspecific skin eruption R21 and Upper respiratory infection, acute J06.9 [facility] [address] 99218- 5482 Aug, [facility] [address] 31779- 1886 Aug, [facility] [address] 68485- 4293 Jul, [facility] [id number] [place] [address] 07985- 3059 Jul, Dysuria R30.0 ; Encounter for Depo-Provera contraception Z30.42 ; Herpes simplex B00.9 ; Nausea & vomiting R11.2 and Asthma J45.909 [facility] [id number] [place] [address] 31937- 4747 Jun, Dysuria R30.0 [facility] [address] 32544- 3389 19 Jun, 2016 Dysuria R30.0 [facility] [address] 66277- 5557 15 Jun, 2016 [facility] [address] 16769- 0755 Jun, [facility] [id number] [address] 87827- 0270 May, [facility] [id number] [address] 68583- 6002 May, [facility] [id number] [place] [address] 53117- 8331 May, Chronic pain G89.29 ; Essential hypertension I10 ; Type 2 diabetes mellitus without complication E11.9 ; Edema of both feet R60.0 and Rash and nonspecific skin eruption R21 [facility] [id number] [place] [address] 36098- 2359 Apr, [facility] [id number] [place] [address] 52275- 9216 Mar, Carpal tunnel syndrome, left upper limb G56.02 and Carpal tunnel syndrome, right upper limb G56.01 [facility] [id number] [place] [address] 06612- 1145 Mar, [facility] [id number] [address] 66972- 6274 Mar, Encounter for Depo-Provera contraception Z30.42 [facility] [id number] [place] [address] 14661- 3149 February, [facility] [id number] [place] [address] 83336- 5541 February, [facility] [id number] [place] [address] 06445- 0004 February, Chronic pain G89.29 ; Essential hypertension I10 ; Type 2 diabetes mellitus without complication E11.9 ; HSV (herpes simplex virus) infection B00.9 ; Anxiety F41.9 ; Hypersomnia G47.10 ; Tobacco abuse Z72.0 ; Hand pain, left M79.642 ; Hand pain, right M79.641 ; Left foot pain M79.672 and Heart palpitations R00.2 [facility] [address] [address]- 2345 Jan, [facility] [id number] [place] [address] 35374- 7074 Jan, [facility] [id number] [place] [address] 33311- 9664 Jan, [facility] [id number] [place] [address] 87295- 0735 Jan, [facility] [id number] [place] [address] 17665- 9103 14 Jan, 2016 Upper respiratory infection J06.9 and Type 2 diabetes mellitus without complication E11.9 [facility] [id number] [place] [address] 46022- 1844 Dec, [facility] [place] [id number] [place] [address] 68542- 3761 Dec, Chronic pain G89.29 ; Essential hypertension I10 ; Type 2 diabetes mellitus without complication E11.9 ; HSV (herpes simplex virus) infection B00.9 ; Anxiety F41.9 ; Upper respiratory infection J06.9 ; Hypersomnia G47.10 and Tobacco abuse Z72.0 [address] [address]- 7694 Dec, Encounter for Depo-Provera contraception Z30.42 [facility] [place] [id number] [place] [address] 06049- 1032 Dec, [facility] [id number] [place] [address] 51850- 2955 Dec, Chronic pain G89.29 ; Sinusitis J32.9 ; Snoring R06.83 and Daytime hypersomnia G47.19 [address] [address]- 2302 Nov, HSV (herpes simplex virus) infection B00.9 ; Encounter for Papanicolaou smear for cervical cancer screening Z12.4 ; Screening for STD sexually transmitted disease Z11.3 and Bartholin's gland cyst N75.0 [facility] [id number] [place] [address] 52552- 2467 Nov, [facility] [id number] [place] [address] 48073- 3219 Nov, [facility] [id number] [place] [address] 35191- 2774 Nov, Essential hypertension I10 ; Type 2 diabetes mellitus without complication E11.9 ; HSV (herpes simplex virus) infection B00.9 ; Spinal stenosis, lumbar region M48.06 and Vaginal yeast infection B37.3 [facility] [id number] [place] [address] 85951- 8637 Nov, [facility] [id number] [place] [address] 83159- 5841 Nov, [facility] [id number] [place] [address] 50472- 8994 Oct, [facility] [id number] [place] [address] 66605- 4317 Oct, HSV (herpes simplex virus) infection B00.9 ; Yeast infection B37.9 ; Change in bowel habit R19.4 ; Nausea & vomiting R11.2 and Gastroesophageal reflux disease without esophagitis K21.9 [facility] [id number] [place] [address] 75142- 2345 Oct, [facility] [id number] [place] [address] 16977- 8341 Oct, Type 2 diabetes mellitus without complication E11.9 ; Essential hypertension I10 and Acute maxillary sinusitis, recurrence not specified J01.00 [facility] [id number] [place] [address] 51845- 9852 Oct, [facility] [id number] [place] [address] 63571- 6699 Oct, [facility] [place] 30155- 7371 Oct, Exposure to head lice Z20.7 ; Blood glucose abnormal R73.09 ; Boil of buttock L02.32 and Type 2 diabetes mellitus without complication E11.[address] 17916- 4591 Oct, [address] 38075- 6278 Sep, [address] 80355- 0160 Sep, [address] 05432- 6990 Aug, Encounter for Depo-Provera contraception Z30.[address] 01344- 0161 Aug, Anxiety F41.9 ; Spinal stenosis, lumbar region M48.06 ; Radiculopathy of lumbar region M54.16 ; Asthma J45.909 ; GERD (gastroesophageal reflux disease) K21.9 ; Essential hypertension I10 and Long-term use of high- risk medication Z79.[address] 89730- 2880 Jul, [address] 71462- 5558 Jun, Hemorrhoid 455.[address] 19722- 0810 Jun, [address] 11814- 4088 Jun, Anxiety 300.00 ; Asthma 493.90 ; Hyperhidrosis 705.21 ; Chest discomfort 786.59 and Upper respiratory infection 465.[address] 14950- 7877 May, Encounter for Depo-Provera contraception V25.49 [facility] [id number] [place] [address] 90679- 2655 May, [facility] [id number] [place] [address] 59991- 2054 May, [facility] [id number] [place] [address] 42708- 8620 May, Spinal stenosis of lumbar region with radiculopathy 724.02 ; Bulging of intervertebral disc between L4 and L5 722.10 ; GERD ( gastroesophageal reflux disease) 530.81 ; Chronic pain 338.29 ; Declining mobility 799.89 and Epigastric pain 789.06 [facility] [address] 98264- 0799 Apr, [facility] [address] 24898- 1198 Apr, Nausea 787.02 and Heart burn 787.1 [facility] [address] 98229- 8366 Mar, Lumbago 724.2 ; Vitamin D deficiency 268.9 ; Anxiety 300.00 ; Allergic rhinitis 477.9 and Contraceptive surveillance V25.40 [facility] [id number] [place] [address] 98918- 6213 February, 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 ; Chronic pain 338.29 and Vaginal discharge 623.5 [facility] [id number] [place] [address] 77425- 1638 February, [facility] [id number] [place] [address] 56226- 0505 February, [facility] [id number] [place] [address] 32182- 8564 Jan, [facility] [id number] [place] [address] 22786- 1769 Jan, [facility] [place] [address] [id number] [place] [address]- 9030 26 Dec, 2014 [facility] [place] [facility] [address] [id number] [place] [address]- 9862 Dec, [facility] [place] [facility] [address] [id number] [place] [address]- 6456 Dec, [facility] [place] [facility] [address] [id number] [place] [address] Dec, [facility] [place] [facility] [address] [id number] [place] [address] 18 Dec, 2014 [facility] [place] [facility] [address] [id number] [place] [address] 18 Dec, 2014 [facility] [place] [facility] [address] [id number] [place] [address] Dec, [facility] [place] [facility] [address] [id number] [place] [address] Dec, [facility] [place] [facility] [address] [id number] [place] [address] Dec, [facility] [place] [facility] [address] [id number] [place] [address] Dec, [facility] [place] [facility] [address] [id number] [place] [address] Dec, [facility] [place] [facility] [address] [id number] [place] [address] Dec, [facility] [place] [facility] [address] [id number] [place] [address] Nov, [facility] [place] [facility] [address] [id number] [place] [address] Nov, [facility] [place] [facility] [address] [id number] [place] [address] Nov, [facility] [place] [facility] [address] [id number] [place] [address] Nov, [facility] [place] [facility] [address] [id number] [place] [address] 23 Nov, 2014 [facility] [place] [facility] [address] [id number] [place] [address] 23 Nov, 2014 [facility] [place] [facility] [address] [id number] [place] [address] 16 Nov, 2014 [facility] [place] [facility] [address] [id number] [place] [address] 16 Nov, 2014 [facility] [place] [facility] [address] [id number] [place] [address] 13 Nov, 2014 [facility] [place] [facility] [address] [id number] [place] [address] 13 Nov, 2014 [facility] [place] [facility] [address] [id number] [place] [address] 13 Nov, 2014 [facility] [place] [facility] [address] [id number] [place] [address] 13 Nov, 2014 [facility] [place] [facility] [address] [id number] [place] [address] 13 Nov, 2014 [facility] [place] [facility] [address] [id number] [place] [address] 13 Nov, 2014 [facility] [facility] [address] [id number] [place] [address]32 13 Nov, 2014 [facility] [place] [facility] [address] [id number] [place] [address] 6[address] 13 Nov, 2014 [facility] [place] [facility] [address] [id number] [place] [address] 3931 10 Nov, 2014 [facility] [place] [facility] [address] [id number] [place] [address] 5346 10 Nov, 2014 [facility] [place] [facility] [address] [id number] [place] [address]- 7963 09 Nov, 2014 [facility] [place] [address] [id number] [place] [address]- 0492 Nov, [facility] [place] [address] [id number] [place] [address]- 1415 Nov, [facility] [place] [facility] [address] [id number] [place] [address]- 9925 Nov, [facility] [place] [facility] [address] [id number] [place] [address]- 2350 Nov, [facility] [place] [facility] [address] [id number] [place] [address]- 7267 Oct, [facility] [place] [address] [id number] [place] [address]- 6897 Oct, [facility] [place] [facility] [address] [id number] [place] [address]- 8002 Oct, [facility] [place] [facility] [address] [id number] [place] [address]- 6446 Oct, [facility] [place] [address] [id number] [place] [address]- 7424 Oct, [facility] [place] [facility] [address] [id number] [place] [address]- 7029 Oct, [facility] [place] [facility] [address] [id number] [place] [address]- 3975 Oct, [facility] [place] [address] [id number] [place] [address] Oct, [facility] [place] [facility] [address] [id number] [place] [address]- 8872 Oct, [facility] [place] [facility] [address] [id number] [place] [address]- 3313 Oct, [facility] [address] [id number] [place] [address]- 4621 Oct, [facility] [address] [id number] [address] 8641 Oct, [facility] [address] [id number] [place] [address]- 3514 Oct, [facility] [address] [id number] [place] [address]- 0758 Oct, [facility] [address] [id number] [place] [address]- 5194 Oct, [facility] [place] [address] [id number] [place] [address]- 3819 Oct, [facility] [address] [id number] [place] [address]- 5780 Oct, [facility] [address] [id number] [place] [address]- 3623 Oct, [facility] [address] [id number] [place] [address]- 2140 Oct, [facility] [address] [id number] [place] [address]- 6301 Oct, [facility] [place] [address] [id number] [place] [address]- 9633 Oct, [facility] [place] [address] [id number] [place] [address]- 3261 Sep, [facility] [address] [id number] [place] [address]- 7316 29 Sep, 2014 [facility] [address] [id number] [address]- 0493 Sep, [facility] [address] [id number] [place] [address]- 1448 18 Sep, 2014 [facility] [address] [id number] [place] [address]- 3969 17 Sep, 2014 [facility] [address] [id number] [place] [address]- 4634 17 Sep, 2014 [facility] [address] [id number] [place] [address]- 9316 15 Sep, 2014 [facility] [address] [id number] [place] [address]- 4846 15 Sep, 2014 [facility] [address] [id number] [place] [address]- 4476 12 Sep, 2014 [facility] [address] [id number] [place] [address]- 6366 12 Sep, 2014 [facility] [address] [id number] [place] [address]- 5008 Sep, [facility] [address] [id number] [place] [address]- 4115 Sep, [facility] [address] [id number] [place] [address]- 2126 Sep, [facility] [address] [id number] [place] [address]- 4066 Sep, [facility] [address] [id number] [place] [address]- 6484 Sep, [facility] [address] [id number] [place] [address]- 8438 Sep, [facility] [address] [id number] [place] [address]- 0679 Sep, [facility] [address] [id number] [place] [address]- 0816 Sep, [facility] [address] [id number] [place] [address]- 2676 Sep, [facility] [address] [id number] [place] [address]- 3466 Sep, [facility] [address] [id number] [place] [address]- 4322 Aug, [facility] [address] [id number] [place] [address]- 0608 Aug, [facility] [address] [id number] [place] [address]- 0773 Aug, [facility] [address] [id number] [place] [address]- 1147 Aug, [facility] [address] [id number] [place] [address]- 9963 Aug, [facility] [address] [id number] [place] [address]- 8787 Aug, [facility] [address] [id number] [place] [address]- 2804 Aug, [facility] [address] [id number] [place] [address]- 1584 Aug, [facility] [address] [id number] [place] [address]- 2365 Aug, [facility] [address] [id number] [place] [address]- 5383 Jul, [facility] [address] [id number] [place] [address]- 0320 Jul, [facility] [address] [id number] [place] [address]- 1642 Jul, [facility] [address] [id number] [place] [address]- 2645 Jul, [facility] [address] [id number] [place] [address]- 2464 Jul, [facility] [address] [id number] [place] [address]- 1001 16 Jul, 2014 [facility] [address] [id number] [place] [address]- 1552 Jul, [facility] [address] [id number] [address]- 7550 Jul, [facility] [address] [id number] [place] [address]- 5897 10 Jul, 2013 [facility] [address] [id number] [place] [address]- 3086 10 Jul, 2013 [facility] [address] [id number] [place] [address]- 4746 10 Jul, 2014 [facility] [address] [id number] [place] [address]- 9604 10 Jul, 2014 [facility] [address] [id number] [place] [address]- 6383 07 Jul, 2014 [facility] [address] [id number] [place] [address]- 9650 07 Jul, 2014 [facility] [address] [id number] [place] [address]- 0712 30 Jun, 2013 [facility] [address] [id number] [place] [address]- 3955 30 Jun, 2013 [facility] [address] [id number] [place] [address] 2544 25 Sep, 2013 [facility] [address] [id number] [place] [address] 2546 25 Sep, 2013 [facility] [address] [id number] [place] [address] 2547 25 Sep, 2013 [facility] [address] [id number] [place] [address] 2546 25 Sep, 2013 [facility] [address] [id number] [place] [address] 2546 24 Sep, 2013 [facility] [address] [id number] [place] [address] 2546 24 Sep, 2013 [facility] [address] [id number] [place] [address] 2546 22 Sep, 2013 [facility] [address] [id number] [place] [address] 2547 22 Sep, 2013 [facility] [address] [id number] [place] [address]- 7619 17 Sep, 2013 [facility] [address] [id number] [place] [address]- 7898 17 Sep, 2013 [facility] [address] [id number] [place] [address]- 2544 16 Jun, 2013 [facility] [address] [id number] [place] [address] 2542 16 Jun, 2013 [facility] [address] [id number] [place] [address]- 8844 15 Jun, 2013 [facility] [address] [id number] [place] [address]- 1683 15 Jun, 2013 [facility] [address] [id number] [place] [address]- 2372 12 Jun, 2013 [facility] [address] [id number] [place] [address]- 1797 12 Jun, 2013 [facility] [address] [id number] [place] [address]- 0277 11 Jun, 2013 [facility] [address] [id number] [place] [address]- 4217 11 Jun, 2013 [facility] [address] [id number] [place] [address]- 6673 11 Jun, 2013 [facility] [address] [id number] [place] [address]- 2543 11 Jun, 2013 [facility] [address] [id number] [place] [address]- 2543 09 Sep, 2013 [facility] [address] [id number] [place] [address]- 2541 09 Sep, 2013 [facility] [address] [id number] [place] [address]- 1265 03 Sep, 2013 [facility] [address] [id number] [place] [address]- 7958 Jun, [facility] [address] [id number] [place] [address]- 6217 May, [facility] [address] [id number] [place] [address]- 4638 May, [facility] [address] [id number] [place] [address]- 1471 May, [facility] [address] [id number] [place] [address]- 2869 May, [facility] [address] [id number] [place] [address]- 3593 May, [facility] [address] [id number] [place] [address]- 5391 May, [facility] [address] [id number] [place] [address]- 7533 May, [facility] [address] [id number] [place] [address]- 5926 May, [facility] [address] [id number] [place] [address]- 5980 May, [facility] [address] [id number] [place] [address]- 4529 May, [facility] [address] [id number] [place] [address]- 2990 May, [facility] [address] [id number] [place] [address]- 6280 May, [facility] [address] [id number] [place] [address]- 0912 May, [facility] [address] [id number] [place] [address]- 6561 Apr, [facility] [address] [id number] [place] [address]- 6179 Apr, [facility] [address] [id number] [place] [address]- 9503 Apr, [facility] [address] [id number] [place] [address]- 9502 Apr, [facility] [address] [id number] [place] [address]- 3186 Apr, [facility] [address] [id number] [place] [address]- 7558 Mar, [facility] [address] [id number] [place] [address]- 0643 Mar, [facility] [address] [id number] [place] [address]- 0024 Mar, [facility] [address] [id number] [place] [address]- 2559 February, [facility] [address] [id number] [place] [address]- 4764 February, [facility] [address] [id number] [place] [address]- 8156 February, [facility] [address] [id number] [place] [address]- 2483 February, [facility] [address] [id number] [place] [address]- 7229 February, [facility] [address] [id number] [place] [address]- 4377 February, [facility] [address] [id number] [place] [address]- 7766 February, [facility] [address] [id number] [place] [address]- 7826 February, [facility] [address] [id number] [place] [address]- 7596 February, [facility] [address] [id number] [place] Jan, [facility] [address] [id number] [place] [address]- 4223 Jan, [facility] [address] [id number] [place] [address]- 9332 Jan, [facility] [address] [id number] [place] [address]- 7610 Jan, [facility] [address] [id number] [place] [address]- 6622 Jan, [facility] [address] [id number] [place] [address]- 4732 Dec, [facility] [address] [id number] [place] [address]- 7291 Dec, [facility] [address] [id number] [place] [address]- 1095 Dec, [facility] [address] [id number] [place] [address]- 2750 Dec, [facility] [address] [id number] [place] [address]- 1620 Dec, [facility] [address] [id number] [place] [address]- 7134 Nov, [facility] [address] [id number] [place] [address]- 2212 Nov, [facility] [place] [facility] [address] [id number] [place] [address]- 3703 Nov, [facility] [place] [facility] [address] [id number] [place] [address]- 2837 Nov, [facility] [place] [facility] [address] [id number] [place] Oct, [facility] [place] [facility] [address] [id number] [place] [address]- 7452 Oct, [facility] [place] [facility] [address] [id number] [place] [address]- 6128 28 Oct, 2013 [facility] [place] [facility] [address] [id number] [place] [address]- 2165 Oct, [facility] [place] [facility] [address] [id number] [place] [address]- 8342 Oct, [facility] [place] [facility] [address] [id number] [place] [address]- 1346 Oct, [facility] [place] [facility] [address] [id number] [place] [address]- 3096 Oct, [facility] [place] [facility] [address] [id number] [place] [address]- 5557 Oct, [facility] [place] [facility] [address] [id number] [place] [address]- 3252 Oct, [facility] [place] [facility] [address] [id number] [place] [address]- 3350 Oct, [facility] [place] [facility] [address] [id number] [place] [address]- 5849 Aug, [facility] [place] [facility] [address] [id number] [place] [address]- 9127 Aug, [facility] [place] [facility] [address] [id number] [place] [address]- 2007 Jul, [facility] [place] [facility] [address] [id number] [place] [address]- 3574 Jul, [facility] [place] [facility] [address] [id number] [place] [address]- 1890 Jul, [facility] [place] [facility] [address] [id number] [place] [address]- 0107 Jul, [facility] [place] [facility] [address] [id number] [place] [address]- 9914 Jul, [facility] [place] [facility] [address] [id number] [place] [address]- 2986 Jul, [facility] [place] [facility] [address] [id number] [place] [address]- 2111 Apr, [facility] [place] [facility] [address] [id number] [place] [address]- 3467 Dec, [facility] [place] [facility] [address] [id number] [place] [address]- 8804 Nov, [facility] [place] [facility] [address] [id number] [place] [address]- 6524 Nov, [facility] [place] [facility] [address] [id number] [place] [address]- 6079 Nov, [facility] [place] [facility] [address] [id number] [place] [address]- 6519 Oct, [facility] [place] [facility] [address] [id number] [place] [address]- 1087 Sep, [facility] [place] [facility] [address] [id number] [place] [address]- 3082 Sep, [facility] [place] [facility] [address] [id number] [place] [address]- 3679 Sep, [facility] [place] [facility] [address] [id number] [place] [address]- 7371 Sep, [facility] [place] [facility] [address] [id number] [place] [address]- 4335 Aug, [facility] [place] [facility] [address] [id number] [place] [address]- 0955 Aug, [facility] [place] [facility] [address] [id number] [place] [address]- 7724 Jul, [facility] [place] [facility] [address] [id number] [place] [address]- 5977 Jul, [facility] [place] [facility] [address] [id number] [place] [address]- 7616 28 Jun, 2012 [facility] [place] [facility] [address] [id number] [place] [address]- 3253 26 Jun, 2012 [facility] [place] [facility] [address] [id number] [place] [address]- 2476 24 Jun, 2012 [facility] [place] [facility] [address] [id number] [place] [address]- 9186 24 Jun, 2012 [facility] [place] [facility] [address] [id number] [place] [address]- 9446 Jun, [facility] [place] [facility] [address] [id number] [place] [address]- 0709 31 Apr, 2012 [facility] [place] [facility] [address] [id number] [place] [address]- 1698 30 Apr, 2012 [facility] [place] [facility] [address] [id number] [place] [address]- 4625 Apr, [facility] [address] [id number] [place] [address]- 7871 Mar, [facility] [place] [facility] [address] [id number] [place] [address]- 9511 Mar, [facility] [place] [facility] [address] [id number] [place] [address]- 2138 Mar, [facility] [place] [facility] [address] [id number] [place] [address]- 7136 February, [facility] [place] [facility] [address] [id number] [place] [address]- 7239 Jan, [facility] [place] [facility] [address] [id number] [place] [address]- 4362 Dec, [facility] [place] [facility] [address] [id number] [place] [address]- 7564 Dec, [facility] [place] [facility] [address] [id number] [place] [address] Dec, [facility] [place] [facility] [address] [id number] [place] [address] Dec, [facility] [place] [facility] [address] [id number] [place] [address] Dec, [facility] [place] [facility] [address] [id number] [place] [address] 14 Nov, 2011 [facility] [place] [facility] [address] [id number] [place] [address] 13 Nov, 2011 [facility] [place] [facility] [address] [id number] [place] [address] Oct, [facility] [place] [facility] [address] [id number] [place] [address] Oct, [facility] [place] [facility] [address] [id number] [place] [address] Oct, [facility] [place] [facility] [address] [id number] [place] [address] Sep, [facility] [place] [facility] [address] [id number] [place] [address] Aug, [facility] [place] [facility] [address] [id number] [place] [address] Aug, [facility] [place] [facility] [address] [id number] [place] [address] Jul, [facility] [place] [facility] [address] [id number] [place] [address] 24 Jul, 2011 [facility] [place] [facility] [address] [id number] [place] [address] 19 Jul, 2011 [facility] [place] [facility] [address] [id number] [place] [address] 13 Jan, 2011 [facility] [place] [facility] [address] [id number] [place] [address] 29 Sep, 2010 [facility] [place] [facility] [address] [id number] [place] [address] 27 Sep, 2010 [facility] [place] [facility] [address] [id number] [place] [address] Sep, [facility] [place] [facility] [address] [id number] [place] [address] Sep, [facility] [place] [facility] [address] [id number] [place] [address] Sep, [facility] [place] [facility] [address] [id number] [place] [address] Aug, [facility] [place] [facility] [address] [id number] [place] [address] 16 Aug, 2010 [facility] [place] [facility] [address] [id number] [place] [address] Aug, [facility] [place] [facility] [address] [id number] [place] [address] Jul, [facility] [place] [facility] [address] [id number] [place] [address] Jul, [facility] [place] [facility] [address] [id number] [place] [address] Jul, [facility] [place] [facility] [address] [id number] [place] [address] May, [facility] [place] [facility] [address] [id number] [place] [address] Apr, [facility] [place] [facility] [address] [id number] [place] [address] Dec, [facility] [place] [facility] [address] [id number] [place] [address] 17 Sep, 2009 [facility] [place] [facility] [address] [id number] [place] [address] 17 Sep, 2009 [facility] [place] [facility] [address] [id number] [place] [address] Aug, [facility] [place] [facility] [address] [id number] [place] [address] Aug, [facility] [place] [facility] [address] [id number] [place] [address] Jul, [facility] [address] [id number] [place] [address] Mar, IMMUNIZATIONS No Known Immunizations SOCIAL HISTORY Never Assessed REASON FOR VISIT Refill Request PLAN OF CARE VITAL SIGNS MEDICATIONS Medication Instructions Dosage Frequency Start Date End Date Duration Status Amlodipine Besylate 5 mg Orally Once a day 1 tablet 24h 30 days Active Protonix 40 mg Orally Once a day 1 tablet 24h 30 days Active RESULTS No Results PROCEDURES No [...]
--- OUTSIDE RECORDS SUMMARY | 2018-10-08 19:59 | XMS REPORT ---
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 Name Role Phone JENNY WOLF Unavailable PROBLEMS Type Condition ICD9-CM Code NNI10-DB Code Onset Dates Condition Status SNOMED Code Problem Chronic pain G89.29 Active 83858754 Problem HSV (herpes simplex virus) infection B00.9 Active 84782308 Problem Gastroesophageal reflux disease without esophagitis K21.9 Active 115987864 Problem Type 2 diabetes mellitus with diabetic neuropathy, unspecified E11.40 Active 56905477 Problem rn long term care 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 Z79.4 Active 017050495 Problem Edema of both feet R60.0 Active 354315798 Problem Tobacco abuse Z72.0 Active 78272981 Problem Chronic migraine G43.709 Active 73574886 Problem Mixed hyperlipidemia E78.2 Active 008317495 Problem Spinal stenosis, lumbar region M48.06 Active 96470048 Problem Anxiety F41.9 Active 27324366 Problem Radiculopathy of lumbar region M54.16 Active 414135642 Problem Bulging lumbar disc M51.26 Active 182490278 Problem Asthma J45.909 Active 237186150 Problem Essential hypertension I10 Active 68925611 ALLERGIES No Information ENCOUNTERS Encounter Location Date Diagnosis [facility] [id number] [place] [address] 79714- 9475 February, Chronic pain G89.29 [facility] [id number] [place] [address] 94735- 8972 Jan, Chronic pain G89.29 [facility] [id number] [place] [address] 05039- 0082 Jan, FDC 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 Z79.4 [facility] [address] [place] [address] 78001- 4697 09 Jan, 2018 Encounter for Depo-Provera contraception Z30.42 [facility] [id number] [place] [address] 78858- 8154 Jan, [facility] [id number] [place] [address] 12930- 2986 Jan, Chronic pain G89.29 and Anxiety F41.9 [facility] [address] 06540- 2249 Jan, [facility] [id number] [place] [address] 52997- 7293 14 Dec, 2017 [facility] [id number] [place] [address] 58799- 3394 14 Dec, 2017 Gastroesophageal reflux disease without esophagitis K21.9 and Anxiety F41.9 [facility] [address] 12804- 4829 Dec, Essential hypertension I10 ; Mixed hyperlipidemia E78.2 ; Type 2 diabetes mellitus with diabetic neuropathy, unspecified E11.40 ; FDC 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 Z79.4 ; Chronic pain G89.29 ; HSV (herpes simplex virus) infection B00.9 ; Anxiety F41.9 and Gastroesophageal reflux disease without esophagitis K21.9 [facility] [id number] [place] [address] 23000- 9095 07 Dec, 2017 Chronic pain G89.29 and Chronic migraine G43.709 [facility] [id number] [place] [address] 57363- 0743 Nov, [facility] [id number] [place] [address] 04435- 0493 Nov, Essential hypertension I10 and Chronic pain G89.29 [facility] [id number] [place] [address] 98080- 8400 05 Nov, 2017 Chronic pain G89.29 ; Essential hypertension I10 and Type 2 diabetes mellitus without complication E11.9 [facility] [id number] [place] [address] 91037- 4319 Oct, Chronic pain G89.29 [facility] [id number] [place] [address] 21751- 8852 Oct, [facility] [id number] [place] [address] 58212- 2988 Sep, Type 2 diabetes mellitus without complication E11.9 ; Essential hypertension I10 ; FDC (current) use of insulin Z79.4 ; Chronic migraine G43.709 ; Chronic pain G89.29 and Acute non-recurrent maxillary sinusitis J01.00 [facility] [id number] [place] [address] 25440- 2632 19 Sep, 2017 Encounter for Depo-Provera contraception Z30.42 [facility] [id number] [place] [address] 56750- 7085 13 Sep, 2017 Chronic pain G89.29 and Radiculopathy of lumbar region M54.16 [facility] [id number] [place] [address] 18144- 1148 Sep, [facility] [id number] [place] [address] 19692- 9236 Sep, [facility] [id number] [place] [address] 13915- 9933 Aug, Type 2 diabetes mellitus without complication E11.9 [facility] [id number] [place] [address] 36426- 7468 Aug, [facility] [id number] [place] [address] 85312- 7652 Aug, Radiculopathy of lumbar region M54.16 and Chronic pain G89.29 [facility] [id number] [place] [address] 46575- 8163 09 Aug, 2017 Type 2 diabetes mellitus without complication E11.9 [facility] [id number] [place] [address] 11851- 4004 Aug, Type 2 diabetes mellitus without complication E11.9 [facility] [address] [address]- 6694 Jul, Type 2 diabetes mellitus without complication E11.9 [facility] [address] [address]- 4786 Jul, [facility] [id number] [place] [address] 00646- 8987 Jul, Chronic pain G89.29 [facility] [id number] [place] [address] 78293- 2996 Jul, [facility] [id number] [place] [address] 70523- 8935 Jul, [facility] [id number] [place] [address] 96874- 5861 Jul, Type 2 diabetes mellitus without complication E11.9 [facility] [id number] [place] [address] 37786- 9586 Jul, [facility] [address] [address]- 7595 Jul, Type 2 diabetes mellitus without complication E11.9 [facility] [address] [address]- 6997 Jul, [facility] [address] [address]- 8291 Jul, [facility] [address] [address]- 9059 Jul, [facility] [address] [address]- 8020 Jun, Type 2 diabetes mellitus without complication E11.9 [facility] [address] [address]- 8940 Jun, Chronic migraine G43.709 ; Type 2 diabetes mellitus without complication E11.9 ; Calculus of right kidney N20.0 ; Yeast dermatitis B37.2 and HSV (herpes simplex virus) infection B00.9 [facility] [id number] [place] [address] 05154- 4558 Jun, Type 2 diabetes mellitus without complication E11.9 [facility] [address] 50285- 7992 Jun, [facility] [address] 08611- 6554 Jun, Radiculopathy of lumbar region M54.16 and Chronic pain G89.29 [facility] [address] 16740- 3945 Jun, Encounter for Depo-Provera contraception Z30.42 [facility] [address] 98761- 9829 Jun, Type 2 diabetes mellitus without complication E11.9 [facility] [address] 70903- 9131 Jun, [facility] [id number] [place] [address] 82145 -7736 May, Acute nasopharyngitis (common cold) J00 [facility] [id number] [place] [address] 42357- 9422 May, Chronic pain G89.29 [facility] [address] 28021- 6537 May, Headache following lumbar puncture G97.1 [facility] [address] 44486- 9224 May, Radiculopathy of lumbar region M54.16 [facility] [address] 60948- 1944 Apr, [facility] [address] 05638- 9458 Apr, Type 2 diabetes mellitus without complication E11.9 ; Chronic pain G89.29 ; Essential hypertension I10 ; Radiculopathy of lumbar region M54.16 ; Spinal stenosis, lumbar region M48.06 ; Gastroesophageal reflux disease without esophagitis K21.9 ; HSV (herpes simplex virus) infection B00.9 ; Mixed hyperlipidemia E78.2 ; Anxiety F41.9 and Asthma J45.909 [facility] [id number] [place] [address] 05309- 2646 Apr, Encounter for Depo-Provera contraception Z30.42 [facility] [address] 66223- 9030 Apr, Chronic pain G89.29 and Anxiety F41.[address] 73288- 6266 Mar, [facility] [address] 49691- 8280 Mar, [facility] [address] 99884- 1790 Mar, Mixed hyperlipidemia E78.2 [facility] [id number] [place] [address] 69301- 2665 Mar, Type 2 diabetes mellitus without complication E11.9 ; Chronic pain G89.29 ; Essential hypertension I10 ; Radiculopathy of lumbar region M54.16 ; Spinal stenosis, lumbar region M48.06 ; Gastroesophageal reflux disease without esophagitis K21.9 ; HSV (herpes simplex virus) infection B00.9 ; Mixed hyperlipidemia E78.2 and Anxiety F41.9 [facility] [id number] [place] [address] 71134- 9162 Mar, [facility] [address] 44931- 8376 Mar, [facility] [id number] [place] [address] 44470- 8592 Mar, [facility] [id number] [place] [address] 43126- 2323 February, Chronic pain G89.29 [facility] [address] [address]- 0171 February, [facility] [id number] [place] [address] 68671- 6105 Jan, Chronic pain G89.29 [facility] [id number] [place] [address] 13473- 3365 Jan, Type 2 diabetes mellitus without complication E11.9 [facility] [id number] [place] [address] 26407- 0244 Jan, [facility] [id number] [place] [address] 35597- 5735 Jan, [facility] [id number] [place] [address] 24277- 4744 Jan, [facility] [id number] [place] [address] 56694- 6856 Jan, Type 2 diabetes mellitus without complication [...] J01.00 and Encounter for Depo-Provera contraception Z30.42 [facility] [address] [address]- 6651 Dec, Chronic pain G89.29 [facility] [id number] [place] [address] 74487- 2222 Dec, Abnormal ankle brachial index (BERNARDINO) R68.89 [facility] [id number] [place] [address] 86925- 5606 Dec, [facility] [id number] [place] [address] 35119- 9814 Dec, Routine gynecological examination Z01.419 ; Chronic [...] virus) infection B00.9 and Allergic rhinitis 477.9 [facility] [id number] [place] [address] 25902- 3474 Nov, Chronic pain G89.29 [place] [place] [id number] [place] [address] 82625- 8449 02 Nov, 2016 Chronic pain G89.29 ; [...] mucoid otitis media of both ears H65.[address] [place] [address] 73229- 9613 Oct, [place] [id number] [place] [address] 58899- 5913 Oct, Chronic pain G89.29 [facility] [id number] [place] [address] 99964- 9644 Oct, Chronic pain G89.29 [place] [id number] [place] [address] 71845- 3273 Sep, Chronic pain G89.29 ; Type 2 diabetes mellitus without complication E11.9 ; Essential hypertension I10 ; Radiculopathy of lumbar region M54.16 ; Spinal stenosis, lumbar region M48.06 ; Gastroesophageal reflux disease without esophagitis K21.9 ; Encounter for surveillance of injectable contraceptive Z30.42 ; Bilateral cold feet R20.9 ; Pain of left foot M79.672 and Pain in right foot M79.671 [facility] [id number] [place] [address] 71347- 5227 Sep, [facility] [id number] [place] [address] 29452- 4133 Aug, [facility] [address] 92990- 2506 Aug, [facility] [address] 94515- 9117 Aug, Chronic pain G89.29 ; Type 2 diabetes mellitus without complication E11.9 ; Essential hypertension I10 ; Rash and nonspecific skin eruption R21 and Upper respiratory infection, acute J06.9 [facility] [address] 00577- 2033 Aug, [facility] [address] 87355- 6795 Aug, [facility] [address] 76252- 7866 Jul, [facility] [id number] [place] [address] 15193- 8016 Jul, Dysuria R30.0 ; Encounter for Depo-Provera contraception Z30.42 ; Herpes simplex B00.9 ; Nausea & vomiting R11.2 and Asthma J45.909 [facility] [id number] [place] [address] 47381- 2628 Jun, Dysuria R30.0 [facility] [address] 50930- 9187 19 Jun, 2016 Dysuria R30.0 [facility] [address] 23037- 4765 15 Jun, 2016 [facility] [address] 77765- 4017 Jun, [facility] [id number] [place] [address] 94993- 8909 May, [facility] [id number] [place] [address] 42686- 1330 May, [facility] [id number] [place] [address] 25059- 7173 May, Chronic pain G89.29 ; Essential hypertension I10 ; Type 2 diabetes mellitus without complication E11.9 ; Edema of both feet R60.0 and Rash and nonspecific skin eruption R21 [facility] [id number] [place] [address] 21020- 8192 Apr, [facility] [id number] [place] [address] 15046- 9069 Mar, Carpal tunnel syndrome, left upper limb G56.02 and Carpal tunnel syndrome, right upper limb G56.01 [facility] [id number] [place] [address] 45612- 5113 Mar, [facility] [id number] [place] [address] 35128- 3999 Mar, Encounter for Depo-Provera contraception Z30.42 [facility] [id number] [place] [address] 71633- 1391 February, [facility] [id number] [place] [address] 38157- 0329 February, [facility] [id number] [place] [address] 31862- 9599 February, Chronic pain G89.29 ; Essential hypertension I10 ; Type 2 diabetes mellitus without complication E11.9 ; HSV (herpes simplex virus) infection B00.9 ; Anxiety F41.9 ; Hypersomnia G47.10 ; Tobacco abuse Z72.0 ; Hand pain, left M79.642 ; Hand pain, right M79.641 ; Left foot pain M79.672 and Heart palpitations R00.2 [facility] [address] [address]- 5772 Jan, [facility] [id number] [place] [address] 56980- 8908 Jan, [facility] [address] [place] [address] 14763- 4289 Jan, [facility] [id number] [place] [address] 65444- 5291 Jan, [facility] [id number] [place] [address] 79929- 6454 14 Jan, 2016 Upper respiratory infection J06.9 and Type 2 diabetes mellitus without complication E11.9 [facility] [id number] [place] [address] 72045- 3194 Dec, [place] [id number] [place] [address] 68632- 3711 Dec, Chronic pain G89.29 ; Essential hypertension I10 ; Type 2 diabetes mellitus without complication E11.9 ; HSV (herpes simplex virus) infection B00.9 ; Anxiety F41.9 ; Upper respiratory infection J06.9 ; Hypersomnia G47.10 and Tobacco abuse Z72.0 [address] [address]- 0198 Dec, Encounter for Depo-Provera contraception Z30.42 [place] [id number] [place] [address] 23494- 1105 Dec, [place] [id number] [place] [address] 42887- 6499 Dec, Chronic pain G89.29 ; Sinusitis J32.9 ; Snoring R06.83 and Daytime hypersomnia G47.19 [address] [address]- 0402 Nov, HSV (herpes simplex virus) infection B00.9 ; Encounter for Papanicolaou smear for cervical cancer screening Z12.4 ; Screening for STD sexually transmitted disease Z11.3 and Bartholin's gland cyst N75.0 [facility] [id number] [place] [address] 88626- 4055 Nov, [facility] [id number] [place] [address] 11935- 1220 Nov, [facility] [id number] [place] [address] 89363- 6653 Nov, Essential hypertension I10 ; Type 2 diabetes mellitus without complication E11.9 ; HSV (herpes simplex virus) infection B00.9 ; Spinal stenosis, lumbar region M48.06 and Vaginal yeast infection B37.3 [facility] [id number] [place] [address] 64543- 3211 Nov, [facility] [id number] [place] [address] 40640- 0540 Nov, [facility] [id number] [place] [address] 59276- 1089 Oct, [facility] [id number] [place] [address] 24118- 2330 Oct, HSV (herpes simplex virus) infection B00.9 ; Yeast infection B37.9 ; Change in bowel habit R19.4 ; Nausea & vomiting R11.2 and Gastroesophageal reflux disease without esophagitis K21.9 [facility] [address] [place] [address] 95398- 0046 Oct, [facility] [id number] [place] [address] 02268- 9036 Oct, Type 2 diabetes mellitus without complication E11.9 ; Essential hypertension I10 and Acute maxillary sinusitis, recurrence not specified J01.00 [facility] [address] [place] [address] 05675- 0196 Oct, [facility] [facility] [id number] [place] [address] 86841- 8976 Oct, [facility] [place] 45233- 2223 Oct, Exposure to head lice Z20.7 ; Blood glucose abnormal R73.09 ; Boil of buttock L02.32 and Type 2 diabetes mellitus without complication E11.[address] 86366- 5888 Oct, [address] 19857- 1229 Sep, [address] 84028- 7635 Sep, [address] 94820- 7708 Aug, Encounter for Depo-Provera contraception Z30.[address] 12748- 4514 Aug, Anxiety F41.9 ; Spinal stenosis, lumbar region M48.06 ; Radiculopathy of lumbar region M54.16 ; Asthma J45.909 ; GERD (gastroesophageal reflux disease) K21.9 ; Essential hypertension I10 and Long-term use of high- risk medication Z79.[address] 80292- 4528 Jul, [address] 08251- 2878 Jun, Hemorrhoid 455.[address] 36004- 2630 Jun, [address] 82702- 0599 Jun, Anxiety 300.00 ; Asthma 493.90 ; Hyperhidrosis 705.21 ; Chest discomfort 786.59 and Upper respiratory infection 465.[address] 95208- 7561 May, Encounter for Depo-Provera contraception V25.49 [facility] [address] [place] [address] 82899- 3167 May, [facility] [id number] [place] [address] 74406- 4842 May, [facility] [id number] [place] [address] 41732- 4261 May, Spinal stenosis of lumbar region with radiculopathy 724.02 ; Bulging of intervertebral disc between L4 and L5 722.10 ; GERD ( gastroesophageal reflux disease) 530.81 ; Chronic pain 338.29 ; Declining mobility 799.89 and Epigastric pain 789.06 [place] [address] 88038- 2835 Apr, [place] [address] 39472- 6975 Apr, Nausea 787.02 and Heart burn 787.1 [place] [address] 34364- 8083 Mar, Lumbago 724.2 ; Vitamin D deficiency 268.9 ; Anxiety 300.00 ; Allergic rhinitis 477.9 and Contraceptive surveillance V25.40 [facility] [id number] [place] [address] 06257- 5555 February, 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 ; Chronic pain 338.29 and Vaginal discharge 623.5 [facility] [facility] [id number] [place] [address] 92303- 2044 February, [place] [id number] [place] [address] 08457- 2237 February, [facility] [facility] [id number] [place] [address] 79177- 6075 Jan, [place] [id number] [place] [address] 69369- 5591 Jan, [place] [address] [place] [address]- 1548 26 Dec, 2014 [facility] [place] [facility] [address] [id number] [place] [address]- 7308 Dec, [facility] [place] [facility] [address] [id number] [place] [address]- 4935 Dec, [facility] [place] [facility] [address] [id number] [place] [address]- 3740 Dec, [facility] [place] [facility] [address] [id number] [place] [address]- 9558 18 Dec, 2014 [facility] [place] [facility] [address] [id number] [place] [address]- 7989 18 Dec, 2014 [facility] [place] [facility] [address] [id number] [place] [address]- 4804 Dec, [facility] [place] [facility] [address] [id number] [place] [address]- 1821 Dec, [facility] [place] [facility] [address] [id number] [place] [address] Dec, [facility] [place] [facility] [address] [id number] [place] [address] Dec, [facility] [place] [facility] [address] [facility] [id number] [place] [address] Dec, [facility] [place] [facility] [address] [id number] [place] [address] Dec, [facility] [place] [facility] [address] [id number] [place] [address] Nov, [facility] [place] [facility] [address] [id number] [place] [address] Nov, [facility] [place] [facility] [address] [id number] [place] [address] Nov, [facility] [place] [facility] [address] [id number] [place] [address] Nov, [facility] [place] [facility] [address] [id number] [place] [address] 23 Nov, 2014 [facility] [place] [facility] [address] [id number] [place] [address] 23 Nov, 2014 [facility] [place] [facility] [address] [facility] [id number] [place] [address] 16 Nov, 2014 [facility] [place] [facility] [address] [facility] [id number] [place] [address] 16 Nov, 2014 [facility] [place] [facility] [address] [id number] [place] [address] 13 Nov, 2014 [facility] [place] [facility] [address] [facility] [id number] [place] [address] 13 Nov, 2014 [facility] [place] [facility] [address] [facility] [id number] [place] [address] 13 Nov, 2014 [facility] [place] [facility] [address] [facility] [id number] [place] [address] 13 Nov, 2014 [facility] [place] [facility] [address] [facility] [id number] [place] [address] 13 Nov, 2014 [facility] [place] [facility] [address] [facility] [id number] [place] [address] 13 Nov, 2014 [facility] [place] [facility] [address] [facility] [id number] [place] [address] 13 Nov, 2014 [facility] [place] [facility] [address] [facility] [id number] [place] [address] 6662 13 Nov, 2014 [facility] [place] [facility] [address] [facility] [id number] [place] [address]- 7402 10 Nov, 2014 [facility] [place] [facility] [address] [facility] [id number] [place] [address]- 4293 10 Nov, 2014 [facility] [place] [facility] [address] [facility] [id number] [place] [address]- 5913 09 Nov, 2014 [facility] [place] [facility] [address] [id number] [place] [address] 6211 Nov, [facility] [place] [facility] [address] [id number] [place] [address]- 2194 Nov, [facility] [place] [facility] [address] [id number] [place] [address]- 2908 Nov, [facility] [place] [facility] [address] [id number] [place] [address]- 7734 Nov, [facility] [place] [facility] [address] [id number] [place] [address]- 6381 Oct, [facility] [place] [facility] [address] [id number] [place] [address] 3513 Oct, [facility] [place] [facility] [address] [id number] [place] [address]- 8051 Oct, [facility] [place] [facility] [address] [id number] [place] [address]- 8241 Oct, [facility] [place] [facility] [address] [id number] [place] [address]- 6716 Oct, [facility] [place] [facility] [address] [id number] [place] [address]- 2534 Oct, [facility] [place] [facility] [address] [id number] [place] [address]- 6291 Oct, [facility] [place] [facility] [address] [id number], [place] [address] 7[address] Oct, [facility] [place] [facility] [address] [id number] [place] [address]- 8374 Oct, [facility] [place] [facility] [address] [id number] [place] [address]- 1403 Oct, [facility] [place] [facility] [address] [id number] [place] [address]- 7187 Oct, [facility] [place] [facility] [address] [id number], [place] [address] 3848 Oct, [facility] [address] [id number] [place] [address]- 9549 Oct, [facility] [place] [facility] [address] [id number] [place] [address]- 2522 Oct, [facility] [place] [facility] [address] [facility] [id number] [place] [address]- 2757 Oct, [facility] [place] [facility] [address] [id number] [place] [address]- 7543 Oct, [facility] [place] [facility] [address] [id number] [place] [address]- 2075 Oct, [facility] [place] [facility] [address] [id number] [place] [address]- 5492 Oct, [facility] [address] [id number] [place] [address]- 8877 Oct, [facility] [place] [facility] [address] [id number] [place] [address]- 9635 Oct, [facility] [place] [facility] [address] [id number] [place] [address]- 8277 Oct, [facility] [place] [facility] [address] [facility] [id number] [place] [address]- 2920 Sep, [facility] [place] [facility] [address] [id number] [place] [address]- 1577 29 Sep, 2014 [facility] [place] [facility] [address] [id number], [place] [address]- 0615 Sep, [facility] [place] [facility] [address] [id number] [place] [address]- 3084 18 Sep, 2014 [facility] [place] [facility] [address] [facility] [id number] [place] [address]- 3974 17 Sep, 2014 [facility] [place] [facility] [address] [facility] [id number] [place] [address]- 1392 17 Sep, 2014 [facility] [place] [facility] [address] [id number] [place] [address]- 8256 15 Sep, 2014 [facility] [place] [facility] [address] [id number] [place] [address]- 5226 15 Sep, 2014 [facility] [place] [facility] [address] [id number] [place] [address]- 2346 12 Sep, 2014 [facility] [place] [facility] [address] [id number] [place] [address]- 4466 12 Sep, 2014 [facility] [place] [facility] [address] [id number] [place] [address]- 7503 Sep, [facility] [place] [facility] [address] [id number] [place] [address]- 2578 Sep, [facility] [place] [facility] [address] [id number] [place] [address]- 9123 Sep, [facility] [place] [facility] [address] [id number] [place] [address]- 4663 Sep, [facility] [place] [facility] [address] [id number] [place] [address]- 4862 Sep, [facility] [place] [facility] [address] [id number] [place] [address]- 7075 Sep, [facility] [place] [facility] [address] [id number] [place] [address]- 2687 Sep, [facility] [place] [facility] [address] [id number] [place] [address]- 5854 Sep, [facility] [place] [facility] [address] [id number] [place] [address]- 1124 Sep, [facility] [place] [facility] [address] [id number] [place] [address]- 1856 Sep, [facility] [place] [facility] [address] [id number] [place] [address]- 0808 Aug, [facility] [place] [facility] [address] [id number] [place] [address]- 2553 Aug, [facility] [place] [facility] [address] [id number] [place] [address]- 3964 Aug, [facility] [place] [facility] [address] [id number] [place] [address]- 2758 Aug, [facility] [place] [facility] [address] [id number] [place] [address]- 7629 Aug, [facility] [place] [facility] [address] [id number] [place] [address]- 4885 Aug, [facility] [place] [facility] [address] [id number] [place] [address]- 7203 Aug, [facility] [place] [facility] [address] [id number] [place] [address]- 2195 Aug, [facility] [place] [facility] [address] [id number] [place] [address]- 4235 Aug, [facility] [place] [facility] [address] [id number] [place] [address]- 9870 Jul, [facility] [place] [facility] [address] [id number] [place] [address]- 8181 Jul, [facility] [place] [facility] [address] [id number] [place] [address]- 7322 Jul, [facility] [place] [facility] [address] [id number], [place] [address]- 8650 Jul, [facility] [place] [facility] [address] [id number], [place] [address]- 7850 Jul, [facility] [place] [facility] [address] [id number] [place] [address]- 5824 16 Jul, 2014 [facility] [place] [facility] [address] [id number], [place] [address]- 9425 Jul, [facility] [place] [facility] [address] [id number], [place] [address]- 5357 Jul, [facility] [place] [facility] [address] [id number] [place] [address]- 1375 10 Jul, 2013 [facility] [place] [facility] [address] [id number] [place] [address]- 3416 10 Jul, 2013 [facility] [place] [facility] [address] [id number] [place] [address]- 3526 10 Jul, 2014 [facility] [place] [facility] [address] [id number] [place] [address]- 2838 10 Jul, 2014 [facility] [place] [facility] [address] [id number] [place] [address]- 3864 07 Jul, 2014 [facility] [place] [facility] [address] [id number] [place] [address]- 5260 07 Jul, 2014 [facility] [place] [facility] [address] [id number] [place] [address]- 8846 30 Jun, 2013 [facility] [place] [facility] [address] [id number] [place] [address]- 0398 30 Jun, 2013 [facility] [place] [facility] [address] [id number] [place] [address] 254 25 Sep, 2013 [facility] [place] [facility] [address] [id number] [place] [address] 2546 25 Sep, 2013 [facility] [place] [facility] [address] [id number] [place] [address] 2543 25 Sep, 2013 [facility] [place] [facility] [address] [id number] [place] [address] 2546 25 Sep, 2013 [facility] [place] [facility] [address] [id number] [place] [address] 2546 24 Sep, 2013 [facility] [place] [facility] [address] [id number] [place] [address] 2546 24 Sep, 2013 [facility] [place] [facility] [address] [id number] [place] [address] 2546 22 Sep, 2013 [facility] [place] [facility] [address] [id number] [place] [address] 2540 22 Sep, 2013 [facility] [place] [facility] [address] [id number] [place] [address]- 0804 17 Sep, 2013 [facility] [place] [facility] [address] [id number] [place] [address]- 9597 17 Sep, 2013 [facility] [place] [facility] [address] [id number] [place] [address]- 2544 16 Jun, 2013 [facility] [place] [facility] [address] [id number] [place] [address] 2549 16 Jun, 2013 [facility] [place] [facility] [address] [id number] [place] [address]- 9787 15 Jun, 2013 [facility] [place] [facility] [address] [id number] [place] [address]- 1287 15 Jun, 2013 [facility] [place] [facility] [address] [id number] [place] [address]- 4149 12 Jun, 2013 [facility] [place] [facility] [address] [id number] [place] [address]- 8951 12 Jun, 2013 [facility] [place] [facility] [address] [id number] [place] [address]- 0908 11 Jun, 2013 [facility] [place] [facility] [address] [id number] [place] [address]- 1214 11 Jun, 2013 [facility] [place] [facility] [address] [id number] [place] [address]- 7701 11 Jun, 2013 [facility] [place] [facility] [address] [id number] [place] [address]- 2541 11 Jun, 2013 [facility] [place] [facility] [address] [id number] [place] [address]- 2545 09 Sep, 2013 [facility] [place] [facility] [address] [id number] [place] [address]- 2547 09 Sep, 2013 [facility] [place] [facility] [address] [id number] [place] [address]- 4767 03 Sep, 2013 [facility] [place] [facility] [address] [id number] [place] [address]- 5852 Jun, [facility] [place] [facility] [address] [id number] [place] [address]- 2924 May, [facility] [place] [facility] [address] [id number] [place] [address]- 5723 May, [facility] [place] [facility] [address] [id number] [place] [address]- 5250 May, [facility] [place] [facility] [address] [id number] [place] [address]- 9853 May, [facility] [place] [facility] [address] [id number] [place] [address]- 7095 May, [facility] [place] [facility] [address] [id number] [place] [address]- 1080 May, [facility] [place] [facility] [address] [id number] [place] [address]- 1598 May, [facility] [place] [facility] [address] [id number] [place] [address]- 9750 May, [facility] [place] [facility] [address] [id number] [place] [address]- 0905 May, [facility] [place] [facility] [address] [id number] [place] [address]- 6681 May, [facility] [place] [facility] [address] [id number] [place] [address]- 6815 May, [facility] [place] [facility] [address] [id number] [place] [address]- 1017 May, [facility] [place] [facility] [address] [id number] [place] [address]- 5414 May, [facility] [place] [facility] [address] [id number] [place] [address]- 6141 Apr, [facility] [place] [facility] [address] [id number] [place] [address]- 8470 Apr, [facility] [place] [facility] [address] [id number] [place] [address]- 3733 Apr, [facility] [address] [id number] [place] [address]- 6531 Apr, [facility] [place] [facility] [address] [id number] [place] [address]- 9876 Apr, [facility] [address] [id number] [place] [address]- 5775 Mar, [facility] [place] [facility] [address] [id number] [place] [address]- 0057 Mar, [facility] [address] [id number] [place] [address]- 5927 Mar, [facility] [address] [id number] [place] [address]- 1957 February, [facility] [place] [facility] [address] [id number] [place] [address]- 9569 February, [facility] [address] [id number] [place] [address]- 5968 February, [facility] [place] [facility] [address] [id number] [place] [address]- 3878 February, [facility] [address] [id number] [place] [address]- 4195 February, [facility] [place] [facility] [address] [id number] [place] [address]- 6992 February, [facility] [place] [facility] [address] [id number] [place] [address]- 3182 February, [facility] [place] [facility] [address] [id number] [place] [address]- 4214 February, [facility] [place] [facility] [address] [id number] [place] [address]- 9436 February, [facility] [place] [facility] [address] [id number] [place] 2131 Jan, [facility] [place] [facility] [address] [id number] [place] [address]- 5379 Jan, [facility] [place] [facility] [address] [id number] [place] [address]- 2113 Jan, [facility] [place] [facility] [address] [id number] [place] [address]- 2096 Jan, [facility] [place] [facility] [address] [id number] [place] [address]- 0005 Jan, [facility] [place] [facility] [address] [id number] [place] [address]- 1383 Dec, [facility] [place] [facility] [address] [id number] [place] [address]- 6118 Dec, [facility] [place] [facility] [address] [id number] [place] [address]- 8417 Dec, [facility] [place] [facility] [address] [id number] [place] [address]- 0562 Dec, [facility] [place] [facility] [address] [id number] [place] [address]- 1676 Dec, [facility] [place] [facility] [address] [id number] [place] [address]- 3924 Nov, [facility] [place] [facility] [address] [id number] [place] [address]- 0000 Nov, [facility] [place] [facility] [address] [id number] [place] [address]- 9424 Nov, [facility] [place] [facility] [address] [id number] [place] [address]- 5492 Nov, [facility] [place] [facility] [address] [id number] [place] 1666 Oct, [facility] [place] [facility] [address] [id number] [place] [address]- 9234 Oct, [facility] [place] [facility] [address] [id number] [place] [address]- 4072 28 Oct, 2013 [facility] [place] [facility] [address] [id number] [place] [address]- 8102 Oct, [facility] [place] [facility] [address] [id number] [place] [address]- 3176 Oct, [facility] [place] [facility] [address] [id number] [place] [address]- 7291 Oct, [facility] [place] [facility] [address] [id number] [place] [address]- 5984 Oct, [facility] [place] [facility] [address] [id number] [place] [address]- 4311 Oct, [facility] [place] [facility] [address] [id number] [place] [address]- 2677 Oct, [facility] [place] [facility] [address] [id number] [place] [address]- 8658 Oct, [facility] [place] [facility] [address] [id number] [place] [address]- 9653 Aug, [facility] [place] [facility] [address] [id number] [place] [address]- 2033 Aug, [facility] [place] [facility] [address] [id number] [place] [address]- 0004 Jul, [facility] [place] [facility] [address] [id number] [place] [address]- 5390 Jul, [facility] [place] [facility] [address] [id number] [place] [address]- 6961 Jul, [facility] [place] [facility] [address] [id number] [place] [address]- 4498 Jul, [facility] [place] [facility] [address] [id number] [place] [address]- 5777 Jul, [facility] [place] [facility] [address] [id number] [place] [address]- 9826 Jul, [facility] [place] [facility] [address] [id number] [place] [address]- 5061 Apr, [facility] [place] [facility] [address] [id number] [place] [address]- 5138 Dec, [facility] [place] [facility] [address] [id number] [place] [address]- 1432 Nov, [facility] [place] [facility] [address] [id number] [place] [address]- 5059 Nov, [facility] [place] [facility] [address] [id number] [place] [address]- 4007 Nov, [facility] [place] [facility] [address] [id number] [place] [address]- 6004 Oct, [facility] [place] [facility] [address] [id number] [place] [address]- 3031 Sep, [facility] [place] [facility] [address] [id number] [place] [address]- 0812 Sep, [facility] [place] [facility] [address] [id number] [place] [address]- 8935 Sep, [facility] [place] [facility] [address] [id number] [place] [address]- 4165 Sep, [facility] [place] [facility] [address] [id number], [place] [address]- 0511 Aug, [facility] [place] [facility] [address] [id number], [place] [address]- 2524 Aug, [facility] [place] [facility] [address] [id number] [place] [address]- 8973 Jul, [facility] [place] [facility] [address] [id number] [place] [address]- 2516 Jul, [facility] [place] [facility] [address] [id number], [place] [address]- 6011 28 Jun, 2012 [facility] [place] [facility] [address] [id number], [place] [address]- 3160 26 Jun, 2012 [facility] [place] [facility] [address] [id number] [place] [address]- 2196 24 Jun, 2012 [facility] [place] [facility] [address] [id number] [place] [address]- 8706 24 Jun, 2012 [facility] [place] [facility] [address] [id number] [place] [address]- 3536 Jun, [facility] [place] [facility] [address] [id number] [place] [address]- 0217 31 Apr, 2012 [facility] [place] [facility] [address] [id number] [place] [address]- 2925 30 Apr, 2012 [facility] [place] [facility] [address] [id number] [place] [address]- 9861 Apr, [facility] [address] [id number] [place] [address]- 4428 Mar, [facility] [place] [facility] [address] [id number] [place] [address]- 0708 Mar, [facility] [place] [facility] [address] [id number] [place] [address]- 4537 Mar, [facility] [place] [facility] [address] [id number] [place] [address]- 0331 February, [facility] [place] [facility] [address] [id number] [place] [address]- 7636 Jan, [facility] [place] [facility] [address] [id number] [place] [address]- 5338 Dec, [facility] [place] [facility] [address] [id number] [place] [address]- 1790 Dec, [facility] [place] [facility] [address] [id number] [place] [address]- 4271 Dec, [facility] [place] [facility] [address] [id number] [place] [address]- 4015 Dec, [facility] [place] [facility] [address] [id number] [place] [address]- 0479 Dec, [facility] [place] [facility] [address] [id number] [place] [address] 14 Nov, 2011 [facility] [place] [facility] [address] [id number] [place] [address] 13 Nov, 2011 [facility] [place] [facility] [address] [id number] [place] [address] Oct, [facility] [place] [facility] [address] [id number] [place] [address] Oct, [facility] [place] [facility] [address] [id number] [place] [address] Oct, [facility] [place] [facility] [address] [id number] [place] [address] Sep, [facility] [place] [facility] [address] [id number] [place] [address] Aug, [facility] [place] [facility] [address] [id number] [place] [address] Aug, [facility] [place] [facility] [address] [id number] [place] [address] Jul, [facility] [place] [facility] [address] [id number] [place] [address] 24 Jul, 2011 [facility] [place] [facility] [address] [id number] [place] [address] 19 Jul, 2011 [facility] [place] [facility] [address] [id number] [place] [address] 13 Jan, 2011 [facility] [place] [facility] [address] [id number] [place] [address] 29 Sep, 2010 [facility] [place] [facility] [address] [id number] [place] [address] 27 Sep, 2010 [facility] [place] [facility] [address] [id number] [place] [address] Sep, [facility] [place] [facility] [address] [id number] [place] [address] Sep, [facility] [place] [facility] [address] [id number] [place] [address] Sep, [facility] [place] [facility] [address] [facility] [id number] [place] [address] Aug, [facility] [place] [facility] [address] [id number] [place] [address] 16 Aug, 2010 [facility] [place] [facility] [address] [id number] [place] [address] Aug, [facility] [place] [facility] [address] [id number] [place] [address] Jul, [facility] [place] [facility] [address] [id number] [place] [address] Jul, [facility] [place] [facility] [address] [id number], [place] [address] Jul, [facility] [place] [facility] [address] [id number], [place] [address] May, [facility] [place] [facility] [address] [id number], [place] [address] Apr, [facility] [place] [facility] [address] [id number], [place] [address] Dec, [facility] [place] [facility] [address] [id number], [place] [address] 17 Sep, 2009 [facility] [place] [facility] [address] [id number] [place] [address] 17 Sep, 2009 [facility] [place] [facility] [address] [id number], [place] [address] Aug, [facility] [place] [facility] [address] [id number], [place] [address] Aug, [facility] [place] [facility] [address] [facility] [id number] [place] [address] Jul, [facility] [address] [facility] [id number] [place] [address] Mar, IMMUNIZATIONS No Known Immunizations SOCIAL HISTORY Never Assessed REASON FOR VISIT Refill request PLAN OF CARE VITAL SIGNS MEDICATIONS Medication Instructions Dosage Frequency Start Date End Date Duration Status Promethazine HCl 25 MG Orally Once a day 1 tablet as needed 24h Active RESULTS No Results PROCEDURES No Known [...]
--- OUTSIDE RECORDS SUMMARY | 2018-10-08 20:00 | XMS REPORT ---
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 813350561 Problem Edema of both feet R60.0 Active 679490969 Problem Tobacco abuse Z72.0 Active 19454170 Problem Chronic migraine G43.709 Active 82141079 Problem Mixed hyperlipidemia E78.2 Active 756940236 Problem Spinal stenosis, lumbar region M48.06 Active 21752361 Problem Anxiety F41.9 Active 07176480 Problem Radiculopathy of lumbar region M54.16 Active 329821885 Problem Bulging lumbar disc M51.26 Active 540951357 Problem Asthma J45.909 Active 246075889 Problem Essential hypertension I10 Active 15879828 ALLERGIES No Information ENCOUNTERS Encounter Location Date Diagnosis [facility] [id number] [place] [address] 21753- 7810 February, Chronic pain G89.29 [facility] [id number] [address] 4342 Jan, Chronic pain G89.29 [facility] [id number] [place] [address] 07588- 1763 Jan, 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 [facility] [id number] [place] [address] 92260- 1205 Jan, Encounter for Depo-Provera contraception Z30.42 [facility] [id number] [place] [address] 91288- 9125 Jan, [facility] [id number] [place] [address] 25781- 7870 Jan, Chronic pain G89.29 and Anxiety F41.9 [place] [address] 03433- 0603 Jan, [facility] [facility] [id number] [place] [address] 13601- 8826 Dec, [facility] [address] 20185- 7376 Dec, Gastroesophageal reflux disease without esophagitis K21.9 and Anxiety F41.9 [facility] [address] 27253- 8753 Dec, Essential hypertension I10 ; Mixed hyperlipidemia E78.2 ; Type 2 diabetes mellitus with diabetic neuropathy, unspecified E11.40 ; 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 ; Chronic pain G89.29 ; HSV (herpes simplex virus) infection B00.9 ; Anxiety F41.9 and Gastroesophageal reflux disease without esophagitis K21.9 [place] [id number] [place] [address] 43485- 6232 07 Dec, 2017 Chronic pain G89.29 and Chronic migraine G43.709 [facility] [facility] [id number] [place] [address] 53594- 3518 Nov, [facility] [id number] [place] [address] 47962- 1261 Nov, Essential hypertension I10 and Chronic pain G89.29 [facility] [id number] [place] [address] 28630- 9341 05 Nov, 2017 Chronic pain G89.29 ; Essential hypertension I10 and Type 2 diabetes mellitus without complication E11.9 [facility] [id number] [place] [address] 75665- 5785 Oct, Chronic pain G89.29 [facility] [id number] [place] [address] 16888- 7510 Oct, [facility] [id number] [place] [address] 84769- 8861 Sep, Type 2 diabetes mellitus without complication E11.9 ; Essential hypertension I10 ; detention (current) use of insulin Z79.4 ; Chronic migraine G43.709 ; Chronic pain G89.29 and Acute non-recurrent maxillary sinusitis J01.00 [facility] [id number] [place] [address] 93600- 3474 19 Sep, 2017 Encounter for Depo-Provera contraception Z30.42 [facility] [id number] [place] [address] 41255- 3004 13 Sep, 2017 Chronic pain G89.29 and Radiculopathy of lumbar region M54.16 [facility] [id number] [place] [address] 61514- 3426 Sep, [facility] [id number] [place] [address] 08200- 3459 Sep, [facility] [id number] [place] [address] 41826- 2226 Aug, Type 2 diabetes mellitus without complication E11.9 [facility] [id number] [place] [address] 26005- 1858 Aug, [facility] [id number] [place] [address] 09873- 7014 Aug, Radiculopathy of lumbar region M54.16 and Chronic pain G89.29 [facility] [place] [id number] [place] [address] 65835- 0449 09 Aug, 2017 Type 2 diabetes mellitus without complication E11.9 [facility] [id number] [place] [address] 70096- 4306 02 Aug, 2017 Type 2 diabetes mellitus without complication E11.9 [facility] [address] [address]- 5031 Jul, Type 2 diabetes mellitus without complication E11.9 [facility] [address] [address]- 1776 Jul, [facility] [id number] [place] [address] 21377- 7432 Jul, Chronic pain G89.29 [facility] [id number] [place] [address] 73913- 1199 Jul, [facility] [id number] [place] [address] 41957- 0467 Jul, [facility] [id number] [place] [address] 72279- 2351 Jul, Type 2 diabetes mellitus without complication E11.9 [facility] [id number] [place] [address] 36912- 7898 Jul, [facility] [id number] [place] [address] 66321- 7992 Jul, Type 2 diabetes mellitus without complication E11.9 [facility] [address] [address]- 4733 Jul, [facility] [address] [address]- 5584 Jul, [facility] [address] [address]- 5220 Jul, [facility] [address] [address]- 3813 Jun, Type 2 diabetes mellitus without complication E11.9 [facility] [address] [address]- 6345 Jun, Chronic migraine G43.709 ; Type 2 diabetes mellitus without complication E11.9 ; Calculus of right kidney N20.0 ; Yeast dermatitis B37.2 and HSV (herpes simplex virus) infection B00.9 [facility] [id number] [place] [address] 54157- 5299 Jun, Type 2 diabetes mellitus without complication E11.9 [facility] [id number] [place] [address] 27803- 5415 Jun, [facility] [address] 96499- 9937 Jun, Radiculopathy of lumbar region M54.16 and Chronic pain G89.29 [facility] [address] 92691- 3109 Jun, Encounter for Depo-Provera contraception Z30.42 [place] [id number] [place] [address] 90711- 9515 Jun, Type 2 diabetes mellitus without complication E11.9 [place] [address] 45420- 0290 Jun, [facility] [address] 23731 -9755 May, Acute nasopharyngitis (common cold) J00 [place] [id number] [place] [address] 76630- 7799 May, Chronic pain G89.29 [facility] [id number] [place] [address] 26109- 4071 May, Headache following lumbar puncture G97.1 [facility] [address] 45544- 6169 May, Radiculopathy of lumbar region M54.16 [facility] [address] 94030- 7074 Apr, [facility] [address] 45355- 1805 Apr, Type 2 diabetes mellitus without complication E11.9 ; Chronic pain G89.29 ; Essential hypertension I10 ; Radiculopathy of lumbar region M54.16 ; Spinal stenosis, lumbar region M48.06 ; Gastroesophageal reflux disease without esophagitis K21.9 ; HSV (herpes simplex virus) infection B00.9 ; Mixed hyperlipidemia E78.2 ; Anxiety F41.9 and Asthma J45.909 [facility] [id number] [place] [address] 45530- 5453 Apr, Encounter for Depo-Provera contraception Z30.42 [facility] [id number] [place] [address] 52051- 6342 Apr, Chronic pain G89.29 and Anxiety F41.[address] 26111- 5135 Mar, [place] [id number] [place] [address] 94176- 5890 Mar, [facility] [address] 07022- 4812 Mar, Mixed hyperlipidemia E78.2 [facility] [id number] [place] [address] 67006- 8154 Mar, Type 2 diabetes mellitus without complication E11.9 ; Chronic pain G89.29 ; Essential hypertension I10 ; Radiculopathy of lumbar region M54.16 ; Spinal stenosis, lumbar region M48.06 ; Gastroesophageal reflux disease without esophagitis K21.9 ; HSV (herpes simplex virus) infection B00.9 ; Mixed hyperlipidemia E78.2 and Anxiety F41.9 [place] [id number] [place] [address] 45708- 4373 Mar, [facility] [id number] [place] [address] 48304- 2109 Mar, [place] [id number] [place] [address] 30936- 6692 Mar, [place] [id number] [place] [address] 01637- 0784 February, Chronic pain G89.29 [facility] [address] [address]- 7603 February, [facility] [id number] [place] [address] 85402- 6315 Jan, Chronic pain G89.29 [facility] [id number] [place] [address] 42573- 5592 Jan, Type 2 diabetes mellitus without complication E11.9 [facility] [id number] [place] [address] 90417- 1258 Jan, [facility] [id number] [place] [address] 19908- 6965 Jan, [facility] [id number] [place] [address] 97517- 3835 Jan, [place] [id number] [place] [address] 93518- 9369 Jan, Type 2 diabetes mellitus without complication [...] J01.00 and Encounter for Depo-Provera contraception Z30.42 [facility] [address] [place] [address] 23832- 6608 28 Dec, 2016 Chronic pain G89.29 [facility] [id number] [place] [address] 78928- 8676 Dec, Abnormal ankle brachial index (BERNARDINO) R68.89 [facility] [id number] [place] [address] 42586- 1362 Dec, [facility] [id number] [place] [address] 24754- 1071 Dec, Routine gynecological examination Z01.419 ; Chronic [...] virus) infection B00.9 and Allergic rhinitis 477.9 [place] [id number] [place] [address] 31680- 1099 Nov, Chronic pain G89.29 [address] [place] [address] 12634- 8412 02 Nov, 2016 Chronic pain G89.29 ; [...] mucoid otitis media of both ears H65.113 [place] [id number] [place] [address] 29606- 6757 Oct, [id number] [place] [address] 43282- 3787 Oct, Chronic pain G89.29 [place] [id number] [place] [address] 94672- 0895 Oct, Chronic pain G89.29 [place] [address] 83542- 6181 Sep, Chronic pain G89.29 ; Type 2 diabetes mellitus without complication E11.9 ; Essential hypertension I10 ; Radiculopathy of lumbar region M54.16 ; Spinal stenosis, lumbar region M48.06 ; Gastroesophageal reflux disease without esophagitis K21.9 ; Encounter for surveillance of injectable contraceptive Z30.42 ; Bilateral cold feet R20.9 ; Pain of left foot M79.672 and Pain in right foot M79.671 [place] [address] 77696- 1402 Sep, [facility] [address] 95787- 8067 Aug, [place] [address] 76271- 0982 Aug, [place] [address] 85763- 9090 Aug, Chronic pain G89.29 ; Type 2 diabetes mellitus without complication E11.9 ; Essential hypertension I10 ; Rash and nonspecific skin eruption R21 and Upper respiratory infection, acute J06.9 [place] [address] 77011- 6966 Aug, [place] [address] 63364- 0644 Aug, [place] [address] 60918- 1216 Jul, [place] [address] 63723- 7960 Jul, Dysuria R30.0 ; Encounter for Depo-Provera contraception Z30.42 ; Herpes simplex B00.9 ; Nausea & vomiting R11.2 and Asthma J45.909 [place] [id number] [place] [address] 11458- 8565 Jun, Dysuria R30.0 [place] [address] 73951- 9771 19 Jun, 2016 Dysuria R30.0 [place] [address] 72448- 0854 15 Jun, 2016 [place] [address] 97298- 0319 Jun, [place] [id number] [address]- 6682 May, [place] [id number] [place] [address] 11475- 0119 May, [place] [id number] [place] [address] 20199- 4094 May, Chronic pain G89.29 ; Essential hypertension I10 ; Type 2 diabetes mellitus without complication E11.9 ; Edema of both feet R60.0 and Rash and nonspecific skin eruption R21 [place] [id number] [place] [address] 10819- 9742 Apr, [place] [id number] [place] [address] 99878- 0333 Mar, Carpal tunnel syndrome, left upper limb G56.02 and Carpal tunnel syndrome, right upper limb G56.01 [place] [id number] [place] [address] 87480- 8443 Mar, [place] [id number] [place] [address] 36780- 3661 Mar, Encounter for Depo-Provera contraception Z30.42 [place] [id number] [place] [address] 61475- 6116 February, [place] [id number] [place] [address] 89463- 0135 February, [place] [id number] [place] [address] 80156- 5960 February, Chronic pain G89.29 ; Essential hypertension I10 ; Type 2 diabetes mellitus without complication E11.9 ; HSV (herpes simplex virus) infection B00.9 ; Anxiety F41.9 ; Hypersomnia G47.10 ; Tobacco abuse Z72.0 ; Hand pain, left M79.642 ; Hand pain, right M79.641 ; Left foot pain M79.672 and Heart palpitations R00.2 [place] [id number] [address]- 2939 Jan, [place] [id number] [place] [address] 13072- 6918 Jan, [place] [id number] [place] [address] 82427- 5577 Jan, [place] [address] 49128- 4629 Jan, [place] [id number] [place] [address] 93292- 9780 14 Jan, 2016 Upper respiratory infection J06.9 and Type 2 diabetes mellitus without complication E11.9 [id number] [place] [address] 20667- 7429 Dec, [address] [place] [address] 38469- 2807 Dec, Chronic pain G89.29 ; Essential hypertension I10 ; Type 2 diabetes mellitus without complication E11.9 ; HSV (herpes simplex virus) infection B00.9 ; Anxiety F41.9 ; Upper respiratory infection J06.9 ; Hypersomnia G47.10 and Tobacco abuse Z72.0 [address] [place] [address] 08597- 9007 Dec, Encounter for Depo-Provera contraception Z30.42 [address] [place] [address] 72174- 8075 Dec, [address] [place] [address] 34017- 2752 Dec, Chronic pain G89.29 ; Sinusitis J32.9 ; Snoring R06.83 and Daytime hypersomnia G47.[address] [place] [address] 48544- 7175 Nov, HSV (herpes simplex virus) infection B00.9 ; Encounter for Papanicolaou smear for cervical cancer screening Z12.4 ; Screening for STD sexually transmitted disease Z11.3 and Bartholin's gland cyst N75.0 [facility] [id number] [place] [address] 83000- 3513 Nov, [facility] [id number] [place] [address] 70209- 8091 Nov, [facility] [id number] [place] [address] 17349- 5917 Nov, Essential hypertension I10 ; Type 2 diabetes mellitus without complication E11.9 ; HSV (herpes simplex virus) infection B00.9 ; Spinal stenosis, lumbar region M48.06 and Vaginal yeast infection B37.3 [place] [address] 89137- 1801 Nov, [place] [id number] [place] [address] 27024- 3452 Nov, [place] [address] 50115- 9013 Oct, [place] [id number] [place] [address] 40099- 7631 Oct, HSV (herpes simplex virus) infection B00.9 ; Yeast infection B37.9 ; Change in bowel habit R19.4 ; Nausea & vomiting R11.2 and Gastroesophageal reflux disease without esophagitis K21.9 [place] [id number] [place] [address] 90073- 6154 Oct, [facility] [id number] [place] [address] 29203- 1813 Oct, Type 2 diabetes mellitus without complication E11.9 ; Essential hypertension I10 and Acute maxillary sinusitis, recurrence not specified J01.00 [place] [id number] [place] [address] 63321- 7698 Oct, [place] [id number] [place] [address] 05371- 2841 Oct, [place] [id number] [place] [address] 33209- 3878 Oct, Exposure to head lice Z20.7 ; Blood glucose abnormal R73.09 ; Boil of buttock L02.32 and Type 2 diabetes mellitus without complication E11.9 [place] [id number] [place] [address] 08175- 2162 Oct, [address] 10271- 2540 Sep, [address] 95201- 4584 Sep, [address] 98097- 7170 Aug, Encounter for Depo-Provera contraception Z30.[address] 92424- 1383 Aug, Anxiety F41.9 ; Spinal stenosis, lumbar region M48.06 ; Radiculopathy of lumbar region M54.16 ; Asthma J45.909 ; GERD (gastroesophageal reflux disease) K21.9 ; Essential hypertension I10 and Long-term use of high- risk medication Z79.[address] 98104- 9716 Jul, [address] [place] [address] 18779- 8819 Jun, Hemorrhoid 455.[address] 91846- 8591 Jun, [address] 27550- 5376 Jun, Anxiety 300.00 ; Asthma 493.90 ; Hyperhidrosis 705.21 ; Chest discomfort 786.59 and Upper respiratory infection 465.9 [id number] [place] [address] 05459- 7655 May, Encounter for Depo-Provera contraception V25.49 [place] [id number] [place] [address] 67127- 8606 May, [place] [address] 02013- 2498 May, [place] [id number] [place] [address] 82309- 6391 May, Spinal stenosis of lumbar region with radiculopathy 724.02 ; Bulging of intervertebral disc between L4 and L5 722.10 ; GERD ( gastroesophageal reflux disease) 530.81 ; Chronic pain 338.29 ; Declining mobility 799.89 and Epigastric pain 789.06 [place] [address] 92678- 4764 Apr, [place] [address] 84064- 9271 Apr, Nausea 787.02 and Heart burn 787.1 [place] [address] 03681- 9044 Mar, Lumbago 724.2 ; Vitamin D deficiency 268.9 ; Anxiety 300.00 ; Allergic rhinitis 477.9 and Contraceptive surveillance V25.40 [place] [id number] [place] [address] 99294- 8757 February, 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 ; Chronic pain 338.29 and Vaginal discharge 623.5 [place] [id number] [place] [address] 21313- 8201 February, [place] [id number] [place] [address] 23021- 1447 February, [place] [address] 96518- 4104 Jan, [place] [address] 40560- 5701 Jan, [place] [address] 31654- 4055 Dec, [facility] [place] [facility] [address] [id number] [place] [address]- 8370 Dec, [facility] [place] [facility] [address] [id number] [place] [address]- 4214 Dec, [facility] [place] [facility] [address] [id number] [place] [address]- 4557 Dec, [facility] [place] [facility] [address] [id number] [place] [address]- 3236 Dec, [facility] [place] [facility] [address] [id number] [place] [address]- 0657 Dec, [facility] [place] [facility] [address] [id number] [place] [address]- 7439 Dec, [facility] [place] [facility] [address] [id number] [place] [address]- 4695 Dec, [facility] [place] [facility] [address] [id number] [place] [address]- 7815 Dec, [facility] [place] [facility] [address] [id number] [place] [address]- 5635 Dec, [facility] [place] [facility] [address] [id number] [place] [address]- 9219 Dec, [facility] [place] [facility] [address] [id number] [place] [address]- 3915 Dec, [facility] [place] [facility] [address] [id number] [place] [address]- 4961 Nov, [facility] [place] [facility] [address] [id number] [place] [address]- 2636 Nov, [facility] [place] [facility] [address] [id number] [place] [address]- 2419 Nov, [facility] [place] [facility] [address] [id number] [place] [address]- 0757 Nov, [facility] [place] [facility] [address] [id number] [place] [address]- 3467 23 Nov, 2014 [facility] [place] [facility] [address] [id number] [place] [address]- 1646 23 Nov, 2014 [facility] [place] [facility] [address] [id number] [place] [address]- 2546 16 Nov, 2014 [facility] [place] [facility] [address] [id number] [place] [address]- 6372 16 Nov, 2014 [facility] [place] [facility] [address] [id number] [place] [address]- 4484 13 Nov, 2014 [facility] [place] [facility] [address] [id number] [place] [address] 13 Nov, 2014 [facility] [place] [facility] [address] [facility] [id number] [place] [address] 13 Nov, 2014 [facility] [place] [facility] [address] [id number] [place] [address] 13 Nov, 2014 [facility] [place] [facility] [address] [id number] [place] [address] 13 Nov, 2014 [facility] [place] [facility] [address] [facility] [id number] [place] [address] 13 Nov, 2014 [facility] [place] [facility] [address] [facility] [id number] [place] [address] 94[address] 13 Nov, 2014 [facility] [place] [facility] [address] [id number] [place] [address] 13 Nov, 2014 [facility] [place] [facility] [address] [id number] [place] [address] 10 Nov, 2014 [facility] [place] [facility] [address] [id number] [place] [address] 10 Nov, 2014 [facility] [place] [facility] [address] [facility] [id number] [place] [address] 09 Nov, 2014 [facility] [place] [facility] [address] [id number] [place] [address] Nov, [facility] [place] [facility] [address] [id number] [place] [address] Nov, [facility] [place] [facility] [address] [id number] [place] [address] Nov, [facility] [place] [facility] [address] [id number] [place] [address] Nov, [facility] [place] [facility] [address] [id number] [place] [address] Oct, [facility] [place] [facility] [address] [id number] [place] [address] Oct, [facility] [place] [facility] [address] [id number] [place] [address] Oct, [facility] [place] [facility] [address] [id number] [place] [address] Oct, [facility] [facility] [address] [id number] [place] [address] Oct, [facility] [place] [facility] [address] [id number] [place] [address] 9110 Oct, [facility] [facility] [address] [id number] [place] [address] 1681 Oct, [facility] [place] [facility] [address] [id number] [place] [address] 0445 Oct, [facility] [place] [facility] [address] [id number] [place] [address] 8324 Oct, [facility] [place] [facility] [address] [id number] [place] [address] 3805 Oct, [facility] [place] [facility] [address] [id number] [place] [address]- 3555 Oct, [facility] [place] [facility] [address] [id number] [place] [address]- 2320 Oct, [facility] [place] [facility] [address] [id number] [place] [address]- 6284 Oct, [facility] [place] [facility] [address] [id number] [place] [address]- 0148 Oct, [facility] [place] [facility] [address] [id number] [place] [address]- 8098 Oct, [facility] [place] [facility] [address] [id number] [place] [address]- 1755 Oct, [facility] [place] [facility] [address] [id number] [place] [address]- 2106 Oct, [facility] [place] [facility] [address] [id number] [place] [address]- 7190 Oct, [facility] [place] [facility] [address] [id number] [place] [address]- 3151 Oct, [facility] [place] [facility] [address] [id number] [place] [address]- 2257 Oct, [facility] [place] [facility] [address] [id number] [place] [address]- 8807 Oct, [facility] [place] [facility] [address] [id number] [place] [address]- 6288 29 Sep, 2014 [facility] [place] [facility] [address] [id number] [place] [address] 7094 29 Sep, 2014 [facility] [place] [facility] [address] [id number] [place] [address]- 0869 18 Sep, 2014 [facility] [place] [facility] [address] [id number] [place] [address]- 4424 18 Sep, 2014 [facility] [place] [facility] [address] [id number] [place] [address]- 7451 17 Sep, 2014 [facility] [place] [facility] [address] [id number] [place] [address]- 0204 17 Sep, 2014 [facility] [place] [facility] [address] [id number] [place] [address]- 4723 15 Sep, 2014 [facility] [place] [facility] [address] [id number] [place] [address]- 6376 15 Sep, 2014 [facility] [place] [facility] [address] [id number] [place] [address]- 1966 12 Sep, 2014 [facility] [place] [facility] [address] [id number] [place] [address]- 1351 12 Sep, 2014 [facility] [place] [facility] [address] [id number] [place] [address]- 4775 11 Sep, 2014 [facility] [place] [address] [id number] [place] [address]- 2532 Sep, [facility] [place] [address] [id number] [place] [address]- 8962 Sep, [facility] [place] [facility] [address] [id number] [place] [address]- 2115 Sep, [facility] [place] [facility] [address] [id number] [place] [address]- 8389 Sep, [facility] [place] [facility] [address] [id number] [place] [address]- 6102 Sep, [facility] [place] [facility] [address] [id number] [place] [address]- 4446 Sep, [facility] [place] [facility] [address] [id number] [place] [address]- 3566 Sep, [facility] [place] [facility] [address] [id number] [place] [address]- 3650 Sep, [facility] [place] [facility] [address] [id number] [place] [address]- 2959 Sep, [facility] [place] [facility] [address] [id number] [place] [address]- 1864 Aug, [facility] [place] [facility] [address] [id number] [place] [address]- 4708 Aug, [facility] [place] [facility] [address] [id number] [place] [address]- 6580 Aug, [facility] [place] [facility] [address] [id number] [place] [address]- 1011 Aug, [facility] [place] [address] [id number] [place] [address]- 8507 Aug, [facility] [place] [address] [id number] [place] [address]- 9702 Aug, [facility] [place] [address] [id number] [place] [address]- 7303 Aug, [facility] [place] [address] [id number] [place] [address]- 2910 Aug, [facility] [place] [address] [id number] [place] [address]- 0427 Aug, [facility] [place] [facility] [address] [id number] [place] [address]- 2885 Jul, [facility] [address] [id number] [place] [address]- 8245 Jul, [facility] [address] [id number] [place] [address]- 4403 Jul, [facility] [place] [facility] [address] [id number] [place] [address]- 7455 Jul, [facility] [address] [id number] [place] [address]- 2495 Jul, [facility] [facility] [address] [id number] [place] [address]- 2797 Jul, [facility] [address] [id number] [place] [address]- 2378 Jul, [facility] [address] [id number] [place] [address]- 2680 Jul, [facility] [address] [id number] [place] [address]- 6519 Jul, [facility] [facility] [address] [id number] [place] [address]- 1206 Jul, [facility] [address] [id number] [place] [address]- 5336 Jul, [facility] [address] [id number] [place] [address]- 0206 Jul, [facility] [facility] [address] [id number] [place] [address]- 0710 Jul, [facility] [address] [id number] [place] [address]- 1693 Jul, [facility] [address] [id number] [place] [address]- 4369 30 Jun, 2014 [facility] [address] [id number] [place] [address]- 6596 30 Jun, 2013 [facility] [address] [id number] [place] [address]- 2540 25 Jun, 2013 [facility] [address] [id number] [place] [address] 2542 25 Jun, 2013 [facility] [address] [id number] [place] [address] 2547 25 Jun, 2013 [facility] [address] [id number] [place] [address] 2548 25 Jun, 2013 [facility] [address] [id number] [place] [address]- 2546 24 Jun, 2013 [facility] [address] [id number] [place] [address] 2546 24 Jun, 2013 [facility] [address] [id number] [place] [address]- 2548 22 Jun, 2013 [facility] [address] [id number] [place] [address]- 2543 22 Jun, 2013 [facility] [address] [id number] [place] [address]- 9291 17 Sep, 2013 [facility] [address] [id number] [place] [address] 2546 17 Sep, 2013 [facility] [address] [id number] [place] [address]- 2546 16 Sep, 2013 [facility] [address] [id number] [place] [address] 2546 16 Sep, 2013 [facility] [address] [id number] [place] [address]- 2547 15 Sep, 2013 [facility] [address] [id number] [place] [address]- 5206 15 Sep, 2013 [facility] [address] [id number] [place] [address]- 8926 12 Sep, 2013 [facility] [address] [id number] [place] [address]- 254 12 Sep, 2013 [facility] [address] [id number] [place] [address]- 0407 11 Sep, 2013 [facility] [address] [id number] [place] [address]- 2540 11 Sep, 2013 [facility] [address] [id number] [place] [address]- 5962 11 Sep, 2013 [facility] [address] [id number] [place] [address] 2543 11 Sep, 2013 [facility] [address] [id number] [place] [address]- 254 09 Sep, 2013 [facility] [address] [id number] [place] [address]- 2549 09 Sep, 2013 [facility] [address] [id number] [place] [address]- 2542 03 Sep, 2013 [facility] [address] [id number] [place] Jun, [facility] [address] [id number] [place] [address]- 4836 May, [facility] [address] [id number] [place] [address]- 0205 May, [facility] [address] [id number] [place] [address]- 9061 May, [facility] [address] [id number] [place] [address]- 0843 May, [facility] [address] [id number] [place] [address]- 4410 May, [facility] [address] [id number] [place] [address]- 1340 May, [facility] [address] [id number] [place] [address]- 9976 May, [facility] [address] [id number] [place] [address]- 5409 May, [facility] [address] [id number] [place] [address]- 5628 May, [facility] [address] [id number] [place] [address]- 7159 May, [facility] [address] [id number] [place] [address]- 2873 May, [facility] [address] [id number] [place] [address]- 3038 May, [facility] [address] [id number] [place] [address]- 9473 May, [facility] [address] [id number] [place] [address]- 9864 Apr, [facility] [address] [id number] [place] [address]- 3831 Apr, [facility] [address] [id number] [place] [address]- 6170 Apr, [facility] [address] [id number] [place] [address]- 6916 Apr, [facility] [address] [id number] [place] [address]- 2817 Apr, [facility] [address] [id number] [place] [address]- 8242 Mar, [facility] [address] [id number] [place] [address]- 4562 Mar, [facility] [address] [id number] [place] [address]- 1485 Mar, [facility] [address] [id number] [place] [address]- 9595 February, [facility] [address] [id number] [place] [address]- 2484 February, [facility] [address] [id number] [place] [address]- 8221 February, [facility] [address] [id number] [place] [address]- 2359 February, [facility] [address] [id number] [place] [address]- 1243 February, [facility] [address] [id number] [place] [address]- 3510 February, [facility] [address] [id number] [place] [address]- 9907 February, [facility] [address] [id number] [place] [address]- 0180 February, [facility] [address] [id number] [place] [address]- 0484 February, [facility] [address] [id number] [place] [address]- 1129 Jan, [facility] [address] [id number] [place] [address]- 7265 Jan, [facility] [address] [id number] [place] [address]- 3339 Jan, [facility] [place] [address] [id number] [place] [address]- 5182 Jan, [facility] [address] [id number] [place] [address]- 3273 Jan, [facility] [address] [id number] [place] [address]- 0516 Dec, [facility] [place] [address] [id number] [place] [address]- 6717 Dec, [facility] [address] [id number] [place] [address]- 0735 Dec, [facility] [address] [id number] [place] [address]- 1486 Dec, [facility] [address] [id number] [place] [address]- 3827 Dec, [facility] [address] [id number] [place] [address]- 4078 Nov, [facility] [address] [id number] [place] [address]- 7900 Nov, [facility] [address] [id number] [place] [address]- 9483 Nov, [facility] [place] [address] [id number] [place] [address]- 2360 Nov, [facility] [address] [id number] [place] [address]- 8750 Oct, [facility] [address] [id number] [place] [address]- 6586 Oct, [facility] [facility] [address] [id number] [place] [address]- 7510 Oct, [facility] [address] [id number] [place] [address]- 5590 Oct, [facility] [facility] [address] [id number] [place] [address]- 3277 Oct, [facility] [place] [facility] [address] [id number] [place] [address]- 9416 Oct, [facility] [facility] [address] [id number] [place] [address]- 7528 Oct, [facility] [facility] [address] [id number] [place] [address]- 7567 Oct, [facility] [place] [facility] [address] [id number] [place] [address]- 1323 Oct, [facility] [facility] [address] [id number] [place] [address]- 1352 Oct, [facility] [place] [facility] [address] [id number] [place] [address]- 9802 Aug, [facility] [place] [facility] [address] [id number] [place] [address]- 7398 Aug, [facility] [place] [facility] [address] [id number] [place] [address]- 1847 Jul, [facility] [facility] [address] [id number] [place] [address]- 9307 Jul, [facility] [place] [facility] [address] [id number] [place] [address]- 7812 Jul, [facility] [facility] [address] [id number] [place] [address]- 5845 Jul, [facility] [place] [facility] [address] [id number] [place] [address]- 5259 Jul, [facility] [place] [facility] [address] [id number] [place] [address]- 6026 Jul, [facility] [place] [facility] [address] [id number] [place] [address]- 8583 18 Apr, 2013 [facility] [address] [id number] [place] [address]- 6301 Dec, [facility] [place] [facility] [address] [id number] [place] [address]- 2726 25 Nov, 2012 [facility] [place] [facility] [address] [id number] [place] [address]- 9896 Nov, [facility] [place] [facility] [address] [id number] [place] [address] 2541 Nov, [facility] [address] [id number] [place] [address]- 1647 16 Oct, 2012 [facility] [address] [id number] [place] [address]- 7092 Sep, [facility] [facility] [address] [id number] [place] [address]- 9535 Sep, [facility] [address] [id number] [place] [address]- 7276 Sep, [facility] [address] [id number] [place] [address]- 6209 Sep, [facility] [address] [facility] [id number] [place] [address] Aug, [facility] [place] [facility] [address] [id number] [place] [address]- 3478 13 Aug, 2012 [facility] [place] [facility] [address] [id number] [place] [address] 2548 Jul, [facility] [place] [facility] [address] [id number] [place] [address]- 1506 Jul, [facility] [place] [facility] [address] [id number] [place] [address] 2546 28 Jun, 2012 [facility] [place] [facility] [address] [id number] [place] [address]- 0189 26 Jun, 2012 [facility] [place] [facility] [address] [id number] [place] [address]- 4960 24 Jun, 2012 [facility] [place] [facility] [address] [id number] [place] [address]- 2351 24 Jun, 2012 [facility] [place] [facility] [address] [id number] [place] [address]- 8954 Jun, [facility] [place] [facility] [address] [id number] [place] [address]- 2523 31 Apr, 2012 [facility] [place] [facility] [address] [id number] [place] [address]- 8939 30 Apr, 2012 [facility] [place] [facility] [address] [id number] [place] [address]- 9408 Apr, [facility] [place] [facility] [address] [id number] [place] [address]- 2918 Mar, [facility] [place] [facility] [address] [id number] [place] [address]- 9141 Mar, [facility] [place] [facility] [address] [id number] [place] [address]- 3338 Mar, [facility] [place] [facility] [address] [id number] [place] [address]- 5848 February, [facility] [place] [facility] [address] [id number] [place] [address]- 4663 Jan, [facility] [place] [facility] [address] [id number] [place] [address]- 6227 Dec, [facility] [place] [facility] [address] [id number] [place] [address]- 4670 Dec, [facility] [place] [facility] [address] [id number] [place] [address]- 5081 Dec, [facility] [place] [facility] [address] [id number] [place] [address]- 7729 Dec, [facility] [place] [facility] [address] [id number] [place] [address]- 7781 12 Dec, 2011 [facility] [address] [id number] [place] [address]- 5416 14 Nov, 2011 [facility] [place] [facility] [address] [id number] [place] [address]- 4106 13 Nov, 2011 [facility] [address] [id number] [place] [address]- 5838 Oct, [facility] [place] [facility] [address] [id number] [place] [address] 2547 Oct, [facility] [address] [id number] [place] [address]- 1682 Oct, [facility] [place] [facility] [address] [id number] [place] [address]- 4287 Sep, [facility] [address] [id number] [place] [address]- 0517 Aug, [facility] [address] [id number] [place] [address]- 8420 Aug, [facility] [place] [facility] [address] [id number] [place] [address]- 1663 28 Jul, 2011 [facility] [place] [facility] [address] [id number] [place] [address]- 2298 24 Jul, 2011 [facility] [place] [facility] [address] [id number] [place] [address]- 1559 19 Jul, 2011 [facility] [place] [facility] [address] [id number] [place] [address]- 7251 13 Jan, 2011 [facility] [place] [facility] [address] [id number] [place] [address]- 1041 29 Sep, 2010 [facility] [place] [facility] [address] [id number] [place] [address]- 2545 27 Sep, 2010 [facility] [place] [facility] [address] [id number] [place] [address] Sep, [facility] [place] [facility] [address] [id number] [place] [address]- 3068 Sep, [facility] [place] [facility] [address] [id number] [place] [address] 06 Sep, 2010 [facility] [place] [facility] [address] [id number] [place] [address] 16 Aug, 2010 [facility] [place] [facility] [address] [id number] [place] [address] 16 Aug, 2010 [facility] [address] [id number] [place] [address] 08 Aug, 2010 [facility] [place] [facility] [address] [id number] [place] [address] Jul, [facility] [address] [id number] [place] [address] Jul, [facility] [address] [id number] [place] [address] Jul, [facility] [place] [facility] [address] [id number] [place] [address] May, [facility] [place] [facility] [address] [id number] [place] [address] Apr, [facility] [place] [facility] [address] [id number] [place] [address] Dec, [facility] [place] [facility] [address] [id number] [place] [address] 17 Sep, 2009 [facility] [place] [facility] [address] [id number] [place] [address] 17 Sep, 2009 [facility] [place] [facility] [address] [id number] [place] [address] Aug, [facility] [place] [facility] [address] [id number] [place] [address] 11 Aug, 2009 [facility] [place] [facility] [address] [id number] [place] [address] Jul, [facility] [address] [facility] [id number] [place] [address] Mar, IMMUNIZATIONS No Known Immunizations SOCIAL HISTORY Never Assessed REASON FOR VISIT Controlled Med Refill PLAN OF CARE VITAL SIGNS MEDICATIONS Medication Instructions Dosage Frequency Start Date End Date Duration Status Hydrocodone-Acetaminophen 5-325 MG Orally four times a day as needed for pain. Must last 28 days. 1 tablet Jul, Active MS Contin 15 MG Orally every 12 hrs as needed must last 28 days 1 tablet Jul, Active Clorazepate Dipotassium 15 MG Orally 3 [...]
--- OUTSIDE RECORDS SUMMARY | 2018-10-08 20:01 | XMS REPORT ---
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 709631428 Problem Edema of both feet R60.0 Active 053941328 Problem Tobacco abuse Z72.0 Active 37224808 Problem Chronic migraine G43.709 Active 32357827 Problem Mixed hyperlipidemia E78.2 Active 054507484 Problem Spinal stenosis, lumbar region M48.06 Active 97070854 Problem Anxiety F41.9 Active 32927681 Problem Radiculopathy of lumbar region M54.16 Active 560338142 Problem Bulging lumbar disc M51.26 Active 676987776 Problem Asthma J45.909 Active 336849800 Problem Essential hypertension I10 Active 60820626 ALLERGIES No Information ENCOUNTERS Encounter Location Date Diagnosis [facility] [id number] [place] [address] 30110- 5015 February, Chronic pain G89.29 [facility] [address] [place] [address] 36875- 9056 Jan, Chronic pain G89.29 [facility] [address] [place] [address] 39846- 5822 Jan, correction 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 Z79.4 [facility] [address] [place] [address] 61854- 3437 09 Jan, 2018 Encounter for Depo-Provera contraception Z30.42 [place] [id number] [place] [address] 33815- 7652 Jan, [place] [id number] [place] [address] 66296- 9841 Jan, Chronic pain G89.29 and Anxiety F41.9 [facility] [address] 03249- 0935 Jan, [place] [id number] [place] [address] 39120- 1434 14 Dec, 2017 [place] [id number] [place] [address] 93132- 8413 14 Dec, 2017 Gastroesophageal reflux disease without esophagitis K21.9 and Anxiety F41.9 [place] [address] 76501- 3856 Dec, Essential hypertension I10 ; Mixed hyperlipidemia E78.2 ; Type 2 diabetes mellitus with diabetic neuropathy, unspecified E11.40 ; correction 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 Z79.4 ; Chronic pain G89.29 ; HSV (herpes simplex virus) infection B00.9 ; Anxiety F41.9 and Gastroesophageal reflux disease without esophagitis K21.9 [place] [id number] [place] [address] 17690- 8394 07 Dec, 2017 Chronic pain G89.29 and Chronic migraine G43.709 [place] [id number] [place] [address] 56910- 0490 Nov, [place] [id number] [place] [address] 67208- 8349 Nov, Essential hypertension I10 and Chronic pain G89.29 [place] [id number] [place] [address] 99034- 9611 05 Nov, 2017 Chronic pain G89.29 ; Essential hypertension I10 and Type 2 diabetes mellitus without complication E11.9 [place] [id number] [place] [address] 00438- 0521 Oct, Chronic pain G89.29 [place] [address] [place] [address] 24264- 5262 Oct, [facility] [id number] [place] [address] 41696- 9284 Sep, Type 2 diabetes mellitus without complication E11.9 ; Essential hypertension I10 ; correction (current) use of insulin Z79.4 ; Chronic migraine G43.709 ; Chronic pain G89.29 and Acute non-recurrent maxillary sinusitis J01.00 [place] [id number] [place] [address] 82250- 1037 19 Sep, 2017 Encounter for Depo-Provera contraception Z30.42 [place] [id number] [place] [address] 42183- 9197 13 Sep, 2017 Chronic pain G89.29 and Radiculopathy of lumbar region M54.16 [place] [id number] [place] [address] 01007- 4632 Sep, [place] [id number] [place] [address] 53228- 4596 Sep, [place] [id number] [place] [address] 07245- 9691 Aug, Type 2 diabetes mellitus without complication E11.9 [place] [id number] [place] [address] 45914- 6937 Aug, [place] [id number] [place] [address] 92833- 2590 Aug, Radiculopathy of lumbar region M54.16 and Chronic pain G89.29 [place] [id number] [place] [address] 33121- 0991 09 Aug, 2017 Type 2 diabetes mellitus without complication E11.9 [place] [id number] [place] [address] 92963- 3798 Aug, Type 2 diabetes mellitus without complication E11.9 [facility] [address] [address]- 8580 Jul, Type 2 diabetes mellitus without complication E11.9 [facility] [address] [address]- 4105 Jul, [facility] [id number] [place] [address] 95753- 2691 Jul, Chronic pain G89.29 [facility] [id number] [place] [address] 47726- 7053 Jul, [facility] [address] [place] [address] 88571- 3355 Jul, [facility] [address] [place] [address] 56939- 6908 Jul, Type 2 diabetes mellitus without complication E11.9 [facility] [address] [place] [address] 51086- 1342 Jul, [facility] [address] [address]- 1022 Jul, Type 2 diabetes mellitus without complication E11.9 [facility] [address] [address]- 5828 Jul, [facility] [address] [address]- 6458 Jul, [facility] [address] [address]- 5776 Jul, [facility] [address] [address]- 6609 Jun, Type 2 diabetes mellitus without complication E11.9 [facility] [address] [address]- 3788 Jun, Chronic migraine G43.709 ; Type 2 diabetes mellitus without complication E11.9 ; Calculus of right kidney N20.0 ; Yeast dermatitis B37.2 and HSV (herpes simplex virus) infection B00.9 [place] [id number] [place] [address] 99838- 5847 Jun, Type 2 diabetes mellitus without complication E11.9 [facility] [address] 46541- 3317 Jun, [place] [address] 13649- 9218 Jun, Radiculopathy of lumbar region M54.16 and Chronic pain G89.29 [place] [address] 68951- 8942 Jun, Encounter for Depo-Provera contraception Z30.42 [place] [address] 01510- 3835 Jun, Type 2 diabetes mellitus without complication E11.9 [place] [address] 35805- 5386 Jun, [facility] [id number] [place] [address] 26967 -6489 May, Acute nasopharyngitis (common cold) J00 [place] [id number] [place] [address] 01992- 6918 May, Chronic pain G89.29 [place] [address] 15591- 6183 May, Headache following lumbar puncture G97.1 [place] [address] 13866- 6409 May, Radiculopathy of lumbar region M54.16 [place] [address] 52432- 6683 Apr, [facility] [address] 18171- 8521 Apr, Type 2 diabetes mellitus without complication E11.9 ; Chronic pain G89.29 ; Essential hypertension I10 ; Radiculopathy of lumbar region M54.16 ; Spinal stenosis, lumbar region M48.06 ; Gastroesophageal reflux disease without esophagitis K21.9 ; HSV (herpes simplex virus) infection B00.9 ; Mixed hyperlipidemia E78.2 ; Anxiety F41.9 and Asthma J45.909 [place] [id number] [place] [address] 93765- 5000 Apr, Encounter for Depo-Provera contraception Z30.42 [place] [address] 59280- 7935 Apr, Chronic pain G89.29 and Anxiety F41.[address] 39696- 8734 Mar, [place] [address] 02658- 8732 Mar, [place] [address] 55194- 9385 Mar, Mixed hyperlipidemia E78.2 [place] [id number] [place] [address] 72948- 5925 Mar, Type 2 diabetes mellitus without complication E11.9 ; Chronic pain G89.29 ; Essential hypertension I10 ; Radiculopathy of lumbar region M54.16 ; Spinal stenosis, lumbar region M48.06 ; Gastroesophageal reflux disease without esophagitis K21.9 ; HSV (herpes simplex virus) infection B00.9 ; Mixed hyperlipidemia E78.2 and Anxiety F41.9 [place] [id number] [place] [address] 17553- 3660 Mar, [place] [address] 16925- 7131 Mar, [place] [id number] [place] [address] 80388- 7028 Mar, [place] [address] [place] [address] 09635- 4678 February, Chronic pain G89.29 [facility] [address] [address]- 5890 February, [facility] [id number] [place] [address] 41498- 0364 Jan, Chronic pain G89.29 [facility] [address] [place] [address] 75922- 0512 Jan, Type 2 diabetes mellitus without complication E11.9 [facility] [id number] [place] [address] 88010- 6760 Jan, [place] [address] [place] [address] 35036- 2988 Jan, [place] [address] [place] [address] 95082- 8977 Jan, [place] [address] [place] [address] 08697- 0877 Jan, Type 2 diabetes mellitus without complication [...] J01.00 and Encounter for Depo-Provera contraception Z30.42 [facility] [address] [address]- 2715 Dec, Chronic pain G89.29 [place] [address] [place] [address] 25784- 9289 Dec, Abnormal ankle brachial index (BERNARDINO) R68.89 [place] [id number] [place] [address] 34964- 7540 Dec, [place] [address] [place] [address] 00086- 7030 Dec, Routine gynecological examination Z01.419 ; Chronic [...] virus) infection B00.9 and Allergic rhinitis 477.9 [place] [id number] [place] [address] 29620- 9646 Nov, Chronic pain G89.29 [place] [id number] [place] [address] 32045- 3619 02 Nov, 2016 Chronic pain G89.29 ; [...] mucoid otitis media of both ears H65.113 [address] [place] [address] 62160- 9555 Oct, [place] [id number] [place] [address] 29358- 5372 Oct, Chronic pain G89.29 [place] [id number] [place] [address] 32123- 5889 Oct, Chronic pain G89.29 [place] [id number] [place] [address] 25102- 4836 Sep, Chronic pain G89.29 ; Type 2 diabetes mellitus without complication E11.9 ; Essential hypertension I10 ; Radiculopathy of lumbar region M54.16 ; Spinal stenosis, lumbar region M48.06 ; Gastroesophageal reflux disease without esophagitis K21.9 ; Encounter for surveillance of injectable contraceptive Z30.42 ; Bilateral cold feet R20.9 ; Pain of left foot M79.672 and Pain in right foot M79.671 [place] [id number] [place] [address] 09721- 3906 Sep, [place] [address] [place] [address] 99378- 3542 Aug, [place] [address] 73948- 1384 Aug, [place] [address] 58722- 6430 Aug, Chronic pain G89.29 ; Type 2 diabetes mellitus without complication E11.9 ; Essential hypertension I10 ; Rash and nonspecific skin eruption R21 and Upper respiratory infection, acute J06.9 [place] [address] 63161- 7847 Aug, [place] [address] 61731- 2063 Aug, [place] [address] 02631- 6691 Jul, [place] [id number] [place] [address] 03738- 8501 Jul, Dysuria R30.0 ; Encounter for Depo-Provera contraception Z30.42 ; Herpes simplex B00.9 ; Nausea & vomiting R11.2 and Asthma J45.909 [place] [address] [place] [address] 15982- 5167 Jun, Dysuria R30.0 [place] [address] 18531- 7033 19 Jun, 2016 Dysuria R30.0 [place] [address] 20461- 6451 15 Jun, 2016 [place] [address] 02664- 9454 Jun, [place] [id number] [place] [address] 22929- 6024 May, [place] [address] [place] [address] 46957- 4533 May, [place] [address] [place] [address] 87936- 5060 May, Chronic pain G89.29 ; Essential hypertension I10 ; Type 2 diabetes mellitus without complication E11.9 ; Edema of both feet R60.0 and Rash and nonspecific skin eruption R21 [place] [address] [place] [address] 97472- 4349 Apr, [place] [address] [place] [address] 96842- 1082 Mar, Carpal tunnel syndrome, left upper limb G56.02 and Carpal tunnel syndrome, right upper limb G56.01 [place] [address] [place] [address] 90233- 4399 Mar, [place] [address] [place] [address] 03386- 7184 Mar, Encounter for Depo-Provera contraception Z30.42 [place] [address] [place] [address] 65379- 5571 February, [place] [address] [place] [address] 47742- 2778 February, [place] [address] [place] [address] 49743- 9758 February, Chronic pain G89.29 ; Essential hypertension I10 ; Type 2 diabetes mellitus without complication E11.9 ; HSV (herpes simplex virus) infection B00.9 ; Anxiety F41.9 ; Hypersomnia G47.10 ; Tobacco abuse Z72.0 ; Hand pain, left M79.642 ; Hand pain, right M79.641 ; Left foot pain M79.672 and Heart palpitations R00.2 [place] [address] [address]- 9231 Jan, [place] [id number] [place] [address] 82893- 9489 Jan, [place] [address] [place] [address] 90772- 4899 Jan, [place] [id number] [place] [address] 28143- 1840 Jan, [place] [address] [place] [address] 18883- 5437 14 Jan, 2016 Upper respiratory infection J06.9 and Type 2 diabetes mellitus without complication E11.9 [place] [address] [place] [address] 01537- 9149 Dec, [place] [id number] [place] [address] 15458- 9305 Dec, Chronic pain G89.29 ; Essential hypertension I10 ; Type 2 diabetes mellitus without complication E11.9 ; HSV (herpes simplex virus) infection B00.9 ; Anxiety F41.9 ; Upper respiratory infection J06.9 ; Hypersomnia G47.10 and Tobacco abuse Z72.0 [address] [address]- 3181 Dec, Encounter for Depo-Provera contraception Z30.42 [place] [id number] [place] [address] 44203- 4604 Dec, [place] [id number] [place] [address] 28356- 3327 Dec, Chronic pain G89.29 ; Sinusitis J32.9 ; Snoring R06.83 and Daytime hypersomnia G47.19 [address] [address]- 0248 Nov, HSV (herpes simplex virus) infection B00.9 ; Encounter for Papanicolaou smear for cervical cancer screening Z12.4 ; Screening for STD sexually transmitted disease Z11.3 and Bartholin's gland cyst N75.0 [facility] [address] [place] [address] 48245- 6775 Nov, [facility] [address] [place] [address] 46512- 8983 Nov, [facility] [address] [place] [address] 86759- 1026 Nov, Essential hypertension I10 ; Type 2 diabetes mellitus without complication E11.9 ; HSV (herpes simplex virus) infection B00.9 ; Spinal stenosis, lumbar region M48.06 and Vaginal yeast infection B37.3 [place] [address] [place] [address] 25365- 5073 Nov, [place] [address] [place] [address] 93304- 1136 Nov, [place] [address] [place] [address] 17792- 3519 Oct, [place] [address] [place] [address] 64022- 1344 Oct, HSV (herpes simplex virus) infection B00.9 ; Yeast infection B37.9 ; Change in bowel habit R19.4 ; Nausea & vomiting R11.2 and Gastroesophageal reflux disease without esophagitis K21.9 [place] [address] [place] [address] 81192- 4693 Oct, [place] [address] [place] [address] 16486- 2241 Oct, Type 2 diabetes mellitus without complication E11.9 ; Essential hypertension I10 and Acute maxillary sinusitis, recurrence not specified J01.00 [place] [address] [place] [address] 42577- 6548 Oct, [place] [id number] [place] [address] 57680- 7420 Oct, [facility] [place] 79412- 2132 Oct, Exposure to head lice Z20.7 ; Blood glucose abnormal R73.09 ; Boil of buttock L02.32 and Type 2 diabetes mellitus without complication E11.[address] 51721- 8193 Oct, [address] 17838- 5262 Sep, [address] 05880- 9050 Sep, [address] 31957- 5880 Aug, Encounter for Depo-Provera contraception Z30.[address] 15665- 5610 Aug, Anxiety F41.9 ; Spinal stenosis, lumbar region M48.06 ; Radiculopathy of lumbar region M54.16 ; Asthma J45.909 ; GERD (gastroesophageal reflux disease) K21.9 ; Essential hypertension I10 and Long-term use of high- risk medication Z79.[address] 24105- 6831 Jul, [address] 06753- 1643 Jun, Hemorrhoid 455.[address] 56638- 6897 Jun, [address] 92255- 3631 Jun, Anxiety 300.00 ; Asthma 493.90 ; Hyperhidrosis 705.21 ; Chest discomfort 786.59 and Upper respiratory infection 465.[address] 40015- 4197 May, Encounter for Depo-Provera contraception V25.49 [place] [address] [place] [address] 07376- 9879 May, [place] [id number] [place] [address] 26172- 1846 May, [place] [address] [place] [address] 36809- 6473 May, Spinal stenosis of lumbar region with radiculopathy 724.02 ; Bulging of intervertebral disc between L4 and L5 722.10 ; GERD ( gastroesophageal reflux disease) 530.81 ; Chronic pain 338.29 ; Declining mobility 799.89 and Epigastric pain 789.06 [place] [address] 19710- 9070 Apr, [place] [address] 08071- 0067 Apr, Nausea 787.02 and Heart burn 787.1 [place] [address] 88816- 0591 Mar, Lumbago 724.2 ; Vitamin D deficiency 268.9 ; Anxiety 300.00 ; Allergic rhinitis 477.9 and Contraceptive surveillance V25.40 [place] [id number] [place] [address] 93283- 1314 February, 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 ; Chronic pain 338.29 and Vaginal discharge 623.5 [place] [id number] [place] [address] 37681- 8508 February, [place] [id number] [place] [address] 14715- 7854 February, [place] [id number] [place] [address] 22791- 0580 Jan, [place] [id number] [place] [address] 75662- 8076 Jan, [place] [address] [place] [id number] [address]- 8803 26 Dec, 2014 [facility] [place] [facility] [address] [id number] [place] [address]- 7422 Dec, [facility] [place] [facility] [address] [id number] [place] [address]- 5993 Dec, [facility] [place] [facility] [address] [id number] [place] [address]- 5179 Dec, [facility] [place] [facility] [address] [id number] [place] [address]- 5767 18 Dec, 2014 [facility] [place] [facility] [address] [id number] [place] [address]- 7453 18 Dec, 2014 [facility] [place] [facility] [address] [id number] [place] [address]- 4242 Dec, [facility] [place] [facility] [address] [id number] [place] [address]- 5235 Dec, [facility] [place] [facility] [address] [id number] [place] [address]- 6011 Dec, [facility] [place] [facility] [address] [id number] [place] [address]- 6511 Dec, [facility] [place] [facility] [address] [facility] [id number] [place] [address]- 7053 Dec, [facility] [place] [facility] [address] [id number] [place] [address]- 2103 Dec, [facility] [place] [facility] [address] [id number] [place] [address]- 9299 Nov, [facility] [place] [facility] [address] [id number] [place] [address]- 6862 Nov, [facility] [place] [facility] [address] [id number] [place] [address]- 9623 Nov, [facility] [place] [facility] [address] [id number] [place] [address] Nov, [facility] [place] [facility] [address] [id number] [place] [address] 23 Nov, 2014 [facility] [place] [facility] [address] [id number] [place] [address] 23 Nov, 2014 [facility] [place] [facility] [address] [facility] [facility] [id number] [place] [address] 16 Nov, 2014 [facility] [place] [facility] [address] [facility] [address] [facility] [id number] [place] [address] 16 Nov, 2014 [facility] [place] [facility] [address] [id number] [place] [address] 13 Nov, 2014 [facility] [place] [facility] [address] [facility] [facility] [id number] [place] [address] 13 Nov, 2014 [facility] [place] [facility] [address] [facility] [address] [facility] [id number] [place] [address] 13 Nov, 2014 [facility] [place] [facility] [address] [facility] [address] [facility] [id number] [place] [address] 13 Nov, 2014 [facility] [place] [facility] [address] [facility] [address] [facility] [id number] [place] [address] 13 Nov, 2014 [facility] [place] [facility] [address] [facility] [address] [facility] [id number] [place] [address] 13 Nov, 2014 [facility] [place] [facility] [address] [facility] [address] [facility] [id number] [place] [address] 13 Nov, 2014 [facility] [facility] [address] [facility] [id number] [place] [address] 13 Nov, 2014 [facility] [place] [facility] [address] [facility] [id number] [place] [address] 9852 10 Nov, 2014 [facility] [place] [facility] [address] [facility] [id number] [place] [address] 2038 10 Nov, 2014 [facility] [place] [facility] [address] [facility] [id number] [place] [address] 8861 09 Nov, 2014 [facility] [place] [facility] [address] [id number] [place] [address] 4110 Nov, [facility] [place] [facility] [address] [id number] [place] [address] 7854 Nov, [facility] [place] [facility] [address] [id number] [place] [address]- 2353 Nov, [facility] [place] [facility] [address] [id number] [place] [address]- 5786 Nov, [facility] [place] [facility] [address] [id number] [place] [address]- 7876 Oct, [facility] [place] [facility] [address] [id number] [place] [address]- 7432 Oct, [facility] [place] [facility] [address] [id number] [place] [address]- 6659 Oct, [facility] [place] [facility] [address] [id number] [place] [address]- 0745 Oct, [facility] [place] [facility] [address] [id number] [place] [address]- 4422 Oct, [facility] [place] [facility] [address] [id number] [place] [address]- 2744 Oct, [facility] [place] [facility] [address] [id number] [place] [address]- 5164 Oct, [facility] [place] [facility] [address] [id number] [place] [address]- 6[address] Oct, [facility] [place] [facility] [address] [id number] [place] [address]- 6935 Oct, [facility] [place] [facility] [address] [id number] [place] [address]- 6274 Oct, [facility] [place] [facility] [address] [id number] [place] [address]- 5940 Oct, [facility] [place] [facility] [address] [id number] [place] [address]- 3[address] Oct, [facility] [address] [id number] [place] [address]- 0630 Oct, [facility] [place] [facility] [address] [id number] [place] [address]- 9978 Oct, [facility] [place] [facility] [address] [facility] [id number] [place] [address]- 9304 Oct, [facility] [place] [facility] [address] [id number] [place] [address]- 3852 Oct, [facility] [place] [facility] [address] [id number] [place] [address]- 0118 Oct, [facility] [place] [facility] [address] [id number] [place] [address]- 5290 Oct, [facility] [address] [id number] [place] [address]- 3338 Oct, [facility] [place] [facility] [address] [id number] [place] [address]- 5610 Oct, [facility] [place] [facility] [address] [id number] [place] [address]- 3501 Oct, [facility] [place] [facility] [address] [facility] [id number] [place] [address]- 6122 Sep, [facility] [address] [id number] [place] [address]- 6791 29 Sep, 2014 [facility] [facility] [address] [id number] [place] [address]- 6046 Sep, [facility] [facility] [address] [id number] [place] [address]- 6910 18 Sep, 2014 [facility] [place] [facility] [address] [facility] [id number] [place] [address]- 5112 17 Sep, 2014 [facility] [facility] [address] [facility] [id number] [place] [address]- 2469 17 Sep, 2014 [facility] [place] [facility] [address] [id number] [place] [address]- 7636 15 Sep, 2014 [facility] [place] [facility] [address] [id number] [place] [address]- 8436 15 Sep, 2014 [facility] [address] [id number] [place] [address]- 6816 12 Sep, 2014 [facility] [place] [facility] [address] [id number] [place] [address]- 4046 12 Sep, 2014 [facility] [place] [facility] [address] [id number] [place] [address]- 0516 Sep, [facility] [address] [id number] [place] [address]- 0213 Sep, [facility] [place] [facility] [address] [id number] [place] [address]- 3990 Sep, [facility] [facility] [address] [id number] [place] [address]- 0035 Sep, [facility] [address] [id number] [place] [address]- 4602 Sep, [facility] [address] [id number] [place] [address]- 9905 Sep, [facility] [facility] [address] [id number] [place] [address]- 6313 Sep, [facility] [facility] [address] [id number] [place] [address]- 8579 Sep, [facility] [address] [id number] [place] [address]- 5398 Sep, [facility] [facility] [address] [id number] [place] [address]- 4386 Sep, [facility] [address] [id number] [place] [address]- 1847 Aug, [facility] [address] [id number] [place] [address]- 6990 Aug, [facility] [facility] [address] [id number] [place] [address]- 5712 Aug, [facility] [address] [id number] [place] [address]- 4441 Aug, [facility] [facility] [address] [id number] [place] [address]- 5418 Aug, [facility] [facility] [address] [id number] [place] [address]- 0264 Aug, [facility] [facility] [address] [id number] [place] [address]- 2407 Aug, [facility] [address] [id number] [place] [address]- 5474 Aug, [facility] [address] [id number] [place] [address]- 3913 Aug, [facility] [address] [id number] [place] [address]- 6460 Jul, [facility] [address] [id number] [place] [address]- 9662 Jul, [facility] [facility] [address] [id number] [place] [address]- 5619 Jul, [facility] [address] [id number] [place] [address]- 5968 Jul, [facility] [address] [id number] [place] [address]- 1305 Jul, [facility] [address] [id number] [place] [address]- 9796 16 Jul, 2014 [facility] [address] [id number] [place] [address]- 4569 Jul, [facility] [address] [id number] [place] [address]- 6891 Jul, [facility] [facility] [address] [id number] [place] [address]- 3039 10 Jul, 2013 [facility] [facility] [address] [id number] [place] [address]- 4536 10 Jul, 2013 [facility] [address] [id number] [place] [address]- 2416 10 Jul, 2014 [facility] [address] [id number] [place] [address]- 8912 10 Jul, 2014 [facility] [address] [id number] [place] [address]- 4122 07 Jul, 2014 [facility] [address] [id number] [place] [address]- 8450 07 Jul, 2014 [facility] [facility] [address] [id number] [place] [address]- 5939 30 Jun, 2013 [facility] [place] [facility] [address] [id number] [place] [address]- 2238 30 Jun, 2013 [facility] [address] [id number] [place] [address] 2548 25 Sep, 2013 [facility] [facility] [address] [id number] [place] [address] 2546 25 Sep, 2013 [facility] [facility] [address] [id number] [place] [address] 2543 25 Sep, 2013 [facility] [address] [id number] [place] [address] 2546 25 Sep, 2013 [facility] [address] [id number] [place] [address] 2546 24 Sep, 2013 [facility] [address] [id number] [place] [address] 2546 24 Sep, 2013 [facility] [address] [id number] [place] [address] 2546 22 Sep, 2013 [facility] [address] [id number] [place] [address] 2544 22 Sep, 2013 [facility] [address] [id number] [place] [address]- 5702 17 Sep, 2013 [facility] [address] [id number] [place] [address]- 6755 17 Sep, 2013 [facility] [address] [id number] [place] [address]- 2547 16 Jun, 2013 [facility] [facility] [address] [id number] [place] [address] 2548 16 Jun, 2013 [facility] [address] [id number] [place] [address]- 8335 15 Jun, 2013 [facility] [address] [id number] [place] [address]- 9237 15 Jun, 2013 [facility] [address] [id number] [place] [address]- 6905 12 Jun, 2013 [facility] [address] [id number] [place] [address]- 3798 12 Jun, 2013 [facility] [address] [id number] [place] [address]- 8729 11 Jun, 2013 [facility] [address] [id number] [place] [address]- 3744 11 Jun, 2013 [facility] [address] [id number] [place] [address]- 1979 11 Jun, 2013 [facility] [facility] [address] [id number] [place] [address]- 2549 11 Jun, 2013 [facility] [address] [id number] [place] [address]- 254 09 Sep, 2013 [facility] [address] [id number] [place] [address]- 2544 09 Sep, 2013 [facility] [address] [id number] [place] [address]- 9885 03 Sep, 2013 [facility] [address] [id number] [place] [address]- 3657 Jun, [facility] [address] [id number] [place] [address]- 7006 May, [facility] [address] [id number] [place] [address]- 4699 May, [facility] [address] [id number] [place] [address]- 5079 May, [facility] [address] [id number] [place] [address]- 3988 May, [facility] [address] [id number] [place] [address]- 3551 May, [facility] [address] [id number] [place] [address]- 4691 May, [facility] [address] [id number] [place] [address]- 3305 May, [facility] [facility] [address] [id number] [place] [address]- 4353 May, [facility] [address] [id number] [place] [address]- 9966 May, [facility] [facility] [address] [id number] [place] [address]- 0236 May, [facility] [address] [id number] [place] [address]- 3295 May, [facility] [facility] [address] [id number] [place] [address]- 5940 May, [facility] [place] [facility] [address] [id number] [place] [address]- 3507 May, [facility] [place] [facility] [address] [id number] [place] [address]- 8379 Apr, [facility] [place] [facility] [address] [id number] [place] [address]- 4383 Apr, [facility] [facility] [address] [id number] [place] [address]- 3224 Apr, [facility] [address] [id number] [place] [address]- 7386 Apr, [facility] [address] [id number] [place] [address]- 2526 Apr, [facility] [address] [id number] [place] [address]- 0910 Mar, [facility] [address] [id number] [place] [address]- 7614 Mar, [facility] [address] [id number] [place] [address]- 7000 Mar, [facility] [address] [id number] [place] [address]- 3895 February, [facility] [address] [id number] [place] [address]- 4602 February, [facility] [address] [id number] [place] [address]- 8847 February, [facility] [address] [id number] [place] [address]- 4755 February, [facility] [address] [id number] [place] [address]- 2650 February, [facility] [address] [id number] [place] [address]- 8180 February, [facility] [address] [id number] [place] [address]- 9668 February, [facility] [facility] [address] [id number] [place] [address]- 0240 February, [facility] [address] [id number] [place] [address]- 7726 February, [facility] [address] [id number] [place] [address] Jan, [facility] [place] [facility] [address] [id number] [place] [address]- 2456 Jan, [facility] [place] [facility] [address] [id number] [place] [address]- 0765 Jan, [facility] [place] [facility] [address] [id number] [place] [address]- 0070 Jan, [facility] [place] [facility] [address] [id number] [place] [address]- 8654 Jan, [facility] [place] [facility] [address] [id number] [place] [address]- 2133 Dec, [facility] [place] [facility] [address] [id number] [place] [address]- 2026 Dec, [facility] [place] [facility] [address] [id number] [place] [address]- 2762 Dec, [facility] [place] [facility] [address] [id number] [place] [address]- 3666 Dec, [facility] [place] [facility] [address] [id number] [place] [address]- 8183 Dec, [facility] [place] [facility] [address] [id number] [place] [address]- 2607 Nov, [facility] [place] [facility] [address] [id number] [place] [address]- 6541 Nov, [facility] [place] [facility] [address] [id number] [place] [address]- 4995 Nov, [facility] [place] [facility] [address] [id number] [place] [address]- 3869 Nov, [facility] [place] [facility] [address] [id number] [place]20 Oct, [facility] [place] [facility] [address] [id number] [place] [address]- 2576 Oct, [facility] [place] [facility] [address] [id number] [place] [address]- 8573 28 Oct, 2013 [facility] [place] [facility] [address] [id number] [place] [address]- 0956 Oct, [facility] [place] [facility] [address] [id number] [place] [address]- 1953 Oct, [facility] [place] [facility] [address] [id number] [place] [address]- 8936 Oct, [facility] [place] [facility] [address] [id number] [place] [address]- 0697 Oct, [facility] [place] [facility] [address] [id number] [place] [address]- 6619 Oct, [facility] [place] [facility] [address] [id number] [place] [address]- 8103 Oct, [facility] [place] [facility] [address] [id number] [place] [address]- 4484 Oct, [facility] [place] [facility] [address] [id number] [place] [address]- 6613 Aug, [facility] [place] [facility] [address] [id number] [place] [address]- 1235 Aug, [facility] [place] [facility] [address] [id number] [place] [address]- 0987 Jul, [facility] [place] [facility] [address] [id number] [place] [address]- 9989 Jul, [facility] [place] [facility] [address] [id number] [place] [address]- 0687 Jul, [facility] [place] [facility] [address] [id number] [place] [address]- 9823 Jul, [facility] [place] [facility] [address] [id number] [place] [address]- 3778 Jul, [facility] [place] [facility] [address] [id number] [place] [address]- 9131 Jul, [facility] [place] [facility] [address] [id number] [place] [address]- 5668 Apr, [facility] [place] [facility] [address] [id number] [place] [address]- 6741 Dec, [facility] [place] [facility] [address] [id number] [place] [address]- 0744 Nov, [facility] [place] [facility] [address] [id number] [place] [address]- 4971 Nov, [facility] [place] [facility] [address] [id number] [place] [address]- 8188 Nov, [facility] [place] [facility] [address] [id number] [place] [address]- 1057 Oct, [facility] [place] [facility] [address] [id number] [place] [address]- 3891 Sep, [facility] [place] [facility] [address] [id number] [place] [address]- 1752 Sep, [facility] [place] [facility] [address] [id number] [place] [address]- 7868 Sep, [facility] [place] [facility] [address] [id number] [place] [address]- 9218 Sep, [facility] [place] [facility] [address] [id number] [place] [address]- 5313 Aug, [facility] [place] [facility] [address] [id number] [place] [address]- 8676 Aug, [facility] [place] [facility] [address] [id number] [place] [address]- 1183 Jul, [facility] [place] [facility] [address] [id number] [place] [address]- 6049 Jul, [facility] [place] [facility] [address] [id number] [place] [address]- 7072 28 Jun, 2012 [facility] [place] [facility] [address] [id number] [place] [address]- 5688 26 Jun, 2012 [facility] [place] [facility] [address] [id number] [place] [address]- 2876 24 Jun, 2012 [facility] [place] [facility] [address] [id number] [place] [address]- 9496 24 Jun, 2012 [facility] [place] [facility] [address] [id number] [place] [address]- 8796 Jun, [facility] [place] [facility] [address] [id number] [place] [address]- 9410 31 Apr, 2012 [facility] [place] [facility] [address] [id number] [place] [address]- 2131 30 Apr, 2012 [facility] [place] [facility] [address] [id number] [place] [address]- 4071 Apr, [facility] [address] [id number] [place] [address]- 0375 Mar, [facility] [place] [facility] [address] [id number] [place] [address]- 2870 Mar, [facility] [place] [facility] [address] [id number] [place] [address]- 9850 Mar, [facility] [place] [facility] [address] [id number] [place] [address]- 5873 February, [facility] [place] [facility] [address] [id number] [place] [address]- 5730 Jan, [facility] [place] [facility] [address] [id number] [place] [address]- 8720 Dec, [facility] [place] [facility] [address] [id number] [place] [address]- 9285 Dec, [facility] [place] [facility] [address] [id number] [place] [address]- 9573 Dec, [facility] [place] [facility] [address] [id number] [place] [address] Dec, [facility] [place] [facility] [address] [id number] [place] [address] Dec, [facility] [place] [facility] [address] [id number] [place] [address] 14 Nov, 2011 [facility] [place] [facility] [address] [id number] [place] [address] 13 Nov, 2011 [facility] [place] [facility] [address] [id number] [place] [address] Oct, [facility] [place] [facility] [address] [id number] [place] [address] Oct, [facility] [place] [facility] [address] [id number] [place] [address] Oct, [facility] [place] [facility] [address] [id number] [place] [address] Sep, [facility] [place] [facility] [address] [id number] [place] [address] Aug, [facility] [place] [facility] [address] [id number] [place] [address] Aug, [facility] [place] [facility] [address] [id number] [place] [address] Jul, [facility] [place] [facility] [address] [id number] [place] [address] 24 Jul, 2011 [facility] [place] [facility] [address] [id number] [place] [address] 19 Jul, 2011 [facility] [place] [facility] [address] [id number] [place] [address] 13 Jan, 2011 [facility] [place] [facility] [address] [id number] [place] [address]- [address]45 29 Sep, 2010 [facility] [place] [facility] [address] [id number] [place] [address]- [address] 27 Sep, 2010 [facility] [place] [facility] [address] [id number] [place] [address] Sep, [facility] [place] [facility] [address] [id number] [place] [address] Sep, [facility] [place] [facility] [address] [id number] [place] [address] Sep, [facility] [place] [facility] [address] [facility] [id number] [place] [address] Aug, [facility] [place] [facility] [address] [id number] [place] [address] 16 Aug, 2010 [facility] [place] [facility] [address] [id number] [place] [address] Aug, [facility] [place] [facility] [address] [id number] [place] [address] Jul, [facility] [place] [facility] [address] [id number] [place] [address] Jul, [facility] [place] [facility] [address] [id number] [place] [address] Jul, [facility] [place] [facility] [address] [id number] [place] [address] May, [facility] [place] [facility] [address] [id number] [place] [address] Apr, [facility] [place] [facility] [address] [id number] [place] [address] Dec, [facility] [place] [facility] [address] [id number] [place] [address] 17 Sep, 2009 [facility] [place] [facility] [address] [id number] [place] [address] 17 Sep, 2009 [facility] [place] [facility] [address] [id number] [place] [address] Aug, [facility] [place] [facility] [address] [id number] [place] [address] Aug, [facility] [place] [facility] [address] [facility] [address] [facility] [id number] [place] [address] Jul, [facility] [address] [facility] [address] [facility] [id number] [place] [address] Mar, IMMUNIZATIONS No Known Immunizations SOCIAL HISTORY Never Assessed REASON FOR VISIT BS ck PLAN OF CARE VITAL SIGNS MEDICATIONS Medication Instructions Dosage Frequency Start Date End Date Duration Status Levemir Flexpen 100 UNIT/ML Subcutaneous twice a day 17 units 12h Active NovoLog Flexpen 100 UNIT/ML Subcutaneous before meals 15 units Active RESULTS No Results PROCEDURES No [...]
--- OUTSIDE RECORDS SUMMARY | 2018-10-08 20:01 | XMS REPORT ---
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 Active 559326408 Problem Edema of both feet R60.0 Active 052312601 Problem Tobacco abuse Z72.0 Active 93097181 Problem Chronic migraine G43.709 Active 15184193 Problem Mixed hyperlipidemia E78.2 Active 325060952 Problem Spinal stenosis, lumbar region M48.06 Active 61554093 Problem Anxiety F41.9 Active 30262558 Problem Radiculopathy of lumbar region M54.16 Active 338353124 Problem Bulging lumbar disc M51.26 Active 154636005 Problem Asthma J45.909 Active 407144368 Problem Essential hypertension I10 Active 06165181 ALLERGIES No Information ENCOUNTERS Encounter Location Date Diagnosis [facility] [id number] [place] [address] 61781- 3299 February, Chronic pain G89.29 [facility] [address] [place] [address] 80889- 4296 Jan, Chronic pain G89.29 [facility] [address] [place] [address] 70065- 1033 Jan, correction 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 Z79.4 [facility] [address] [place] [address] 56267- 6785 09 Jan, 2018 Encounter for Depo-Provera contraception Z30.42 [facility] [id number] [place] [address] 53538- 2279 Jan, [facility] [id number] [place] [address] 77383- 9310 Jan, Chronic pain G89.29 and Anxiety F41.9 [facility] [address] 03369- 1885 Jan, [facility] [id number] [place] [address] 90901- 1501 14 Dec, 2017 [facility] [id number] [place] [address] 30638- 6553 14 Dec, 2017 Gastroesophageal reflux disease without esophagitis K21.9 and Anxiety F41.9 [facility] [facility] [address] 34174- 2618 Dec, Essential hypertension I10 ; Mixed hyperlipidemia E78.2 ; Type 2 diabetes mellitus with diabetic neuropathy, unspecified E11.40 ; correction 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 Z79.4 ; Chronic pain G89.29 ; HSV (herpes simplex virus) infection B00.9 ; Anxiety F41.9 and Gastroesophageal reflux disease without esophagitis K21.9 [facility] [id number] [place] [address] 49938- 7634 07 Dec, 2017 Chronic pain G89.29 and Chronic migraine G43.709 [facility] [id number] [place] [address] 87060- 6983 Nov, [facility] [id number] [place] [address] 93068- 5367 Nov, Essential hypertension I10 and Chronic pain G89.29 [facility] [id number] [place] [address] 05680- 8139 05 Nov, 2017 Chronic pain G89.29 ; Essential hypertension I10 and Type 2 diabetes mellitus without complication E11.9 [facility] [id number] [place] [address] 18985- 9563 Oct, Chronic pain G89.29 [facility] [id number] [place] [address] 23988- 5972 Oct, [facility] [id number] [place] [address] 74169- 3362 Sep, Type 2 diabetes mellitus without complication E11.9 ; Essential hypertension I10 ; correction (current) use of insulin Z79.4 ; Chronic migraine G43.709 ; Chronic pain G89.29 and Acute non-recurrent maxillary sinusitis J01.00 [facility] [id number] [place] [address] 75724- 8217 19 Sep, 2017 Encounter for Depo-Provera contraception Z30.42 [facility] [id number] [place] [address] 36648- 5655 13 Sep, 2017 Chronic pain G89.29 and Radiculopathy of lumbar region M54.16 [facility] [id number] [place] [address] 71454- 6149 Sep, [facility] [id number] [place] [address] 73641- 7168 Sep, [facility] [id number] [place] [address] 63676- 8838 Aug, Type 2 diabetes mellitus without complication E11.9 [facility] [id number] [place] [address] 44418- 5303 Aug, [facility] [id number] [place] [address] 53364- 7427 Aug, Radiculopathy of lumbar region M54.16 and Chronic pain G89.29 [facility] [id number] [place] [address] 21277- 1492 09 Aug, 2017 Type 2 diabetes mellitus without complication E11.9 [facility] [id number] [place] [address] 05700- 0968 Aug, Type 2 diabetes mellitus without complication E11.9 [facility] [address] [place] [address]- 2543 Jul, Type 2 diabetes mellitus without complication E11.9 [facility] [address] [address]- 4299 Jul, [facility] [id number] [place] [address] 80275- 5072 Jul, Chronic pain G89.29 [facility] [id number] [place] [address] 27023- 8824 Jul, [facility] [id number] [place] [address] 80975- 9342 Jul, [facility] [id number] [place] [address] 77028- 4856 Jul, Type 2 diabetes mellitus without complication E11.9 [facility] [id number] [place] [address] 46847- 9900 Jul, [facility] [address] [address]- 7392 Jul, Type 2 diabetes mellitus without complication E11.9 [facility] [address] [address]- 1816 Jul, [facility] [address] [place] [address]- 8501 Jul, [facility] [address] [place] [address]- 9622 Jul, [facility] [address] [address]- 3468 Jun, Type 2 diabetes mellitus without complication E11.9 [facility] [address] [place] [address]- 9278 Jun, Chronic migraine G43.709 ; Type 2 diabetes mellitus without complication E11.9 ; Calculus of right kidney N20.0 ; Yeast dermatitis B37.2 and HSV (herpes simplex virus) infection B00.9 [facility] [id number] [place] [address] 45396- 2415 Jun, Type 2 diabetes mellitus without complication E11.9 [facility] [address] 64131- 9121 Jun, [facility] [facility] [address] 71940- 9051 Jun, Radiculopathy of lumbar region M54.16 and Chronic pain G89.29 [facility] [address] 26919- 7293 Jun, Encounter for Depo-Provera contraception Z30.42 [facility] [facility] [address] 79584- 6299 Jun, Type 2 diabetes mellitus without complication E11.9 [facility] [facility] [address] 72057- 8984 Jun, [facility] [id number] [place] [address] 42301 -1428 May, Acute nasopharyngitis (common cold) J00 [facility] [facility] [id number] [place] [address] 08548- 7507 May, Chronic pain G89.29 [facility] [address] 29717- 1126 May, Headache following lumbar puncture G97.1 [facility] [facility] [address] 40168- 0510 May, Radiculopathy of lumbar region M54.16 [facility] [facility] [address] 87148- 9838 Apr, [facility] [address] 32877- 1648 Apr, Type 2 diabetes mellitus without complication E11.9 ; Chronic pain G89.29 ; Essential hypertension I10 ; Radiculopathy of lumbar region M54.16 ; Spinal stenosis, lumbar region M48.06 ; Gastroesophageal reflux disease without esophagitis K21.9 ; HSV (herpes simplex virus) infection B00.9 ; Mixed hyperlipidemia E78.2 ; Anxiety F41.9 and Asthma J45.909 [facility] [id number] [place] [address] 21411- 7656 Apr, Encounter for Depo-Provera contraception Z30.42 [facility] [address] 13757- 8716 Apr, Chronic pain G89.29 and Anxiety F41.[address] 43406- 6409 Mar, [facility] [address] 88541- 5466 Mar, [facility] [address] 68893- 8586 Mar, Mixed hyperlipidemia E78.2 [facility] [id number] [place] [address] 64305- 5221 Mar, Type 2 diabetes mellitus without complication E11.9 ; Chronic pain G89.29 ; Essential hypertension I10 ; Radiculopathy of lumbar region M54.16 ; Spinal stenosis, lumbar region M48.06 ; Gastroesophageal reflux disease without esophagitis K21.9 ; HSV (herpes simplex virus) infection B00.9 ; Mixed hyperlipidemia E78.2 and Anxiety F41.9 [facility] [id number] [place] [address] 36582- 4843 Mar, [facility] [address] 19652- 9642 Mar, [facility] [id number] [place] [address] 94297- 5337 Mar, [facility] [id number] [place] [address] 84897- 9747 February, Chronic pain G89.29 [facility] [address] [address]- 5870 February, [facility] [id number] [place] [address] 23023- 3798 Jan, Chronic pain G89.29 [facility] [address] [place] [address] 92032- 9522 Jan, Type 2 diabetes mellitus without complication E11.9 [facility] [id number] [place] [address] 57822- 8565 Jan, [facility] [id number] [place] [address] 01753- 2430 Jan, [facility] [id number] [place] [address] 10837- 4072 Jan, [facility] [id number] [place] [address] 12939- 1660 Jan, Type 2 diabetes mellitus without complication [...] J01.00 and Encounter for Depo-Provera contraception Z30.42 [facility] [address] [address]- 6426 Dec, Chronic pain G89.29 [facility] [id number] [place] [address] 95177- 6258 Dec, Abnormal ankle brachial index (BERNARDINO) R68.89 [facility] [id number] [place] [address] 63143- 8570 Dec, [facility] [id number] [place] [address] 57323- 9975 Dec, Routine gynecological examination Z01.419 ; Chronic [...] virus) infection B00.9 and Allergic rhinitis 477.9 [facility] [facility] [id number] [place] [address] 11010- 7522 Nov, Chronic pain G89.29 [place] [id number] [place] [address] 22997- 8881 02 Nov, 2016 Chronic pain G89.29 ; [...] mucoid otitis media of both ears H65.113 [address] [place] [address] 16663- 1364 Oct, [place] [id number] [place] [address] 13539- 2415 Oct, Chronic pain G89.29 [facility] [id number] [place] [address] 61644- 3846 Oct, Chronic pain G89.29 [place] [id number] [place] [address] 81390- 0325 Sep, Chronic pain G89.29 ; Type 2 diabetes mellitus without complication E11.9 ; Essential hypertension I10 ; Radiculopathy of lumbar region M54.16 ; Spinal stenosis, lumbar region M48.06 ; Gastroesophageal reflux disease without esophagitis K21.9 ; Encounter for surveillance of injectable contraceptive Z30.42 ; Bilateral cold feet R20.9 ; Pain of left foot M79.672 and Pain in right foot M79.671 [facility] [id number] [place] [address] 02063- 4852 Sep, [facility] [facility] [id number] [place] [address] 42302- 8382 Aug, [facility] [facility] [address] 51157- 7328 Aug, [facility] [address] 50110- 5608 Aug, Chronic pain G89.29 ; Type 2 diabetes mellitus without complication E11.9 ; Essential hypertension I10 ; Rash and nonspecific skin eruption R21 and Upper respiratory infection, acute J06.9 [facility] [facility] [address] 54032- 2828 Aug, [place] [address] 12082- 7207 Aug, [facility] [facility] [address] 50986- 0842 Jul, [facility] [id number] [place] [address] 59927- 4633 Jul, Dysuria R30.0 ; Encounter for Depo-Provera contraception Z30.42 ; Herpes simplex B00.9 ; Nausea & vomiting R11.2 and Asthma J45.909 [facility] [facility] [id number] [place] [address] 61080- 5645 Jun, Dysuria R30.0 [facility] [facility] [address] 46603- 9994 19 Jun, 2016 Dysuria R30.0 [facility] [facility] [address] 31130- 4649 15 Jun, 2016 [facility] [facility] [address] 99397- 0455 Jun, [facility] [id number] [place] [address] 71414- 8103 May, [facility] [facility] [id number] [place] [address] 33647- 1300 May, [facility] [id number] [place] [address] 93466- 4461 May, Chronic pain G89.29 ; Essential hypertension I10 ; Type 2 diabetes mellitus without complication E11.9 ; Edema of both feet R60.0 and Rash and nonspecific skin eruption R21 [facility] [id number] [place] [address] 97457- 8500 Apr, [facility] [id number] [place] [address] 69488- 4076 Mar, Carpal tunnel syndrome, left upper limb G56.02 and Carpal tunnel syndrome, right upper limb G56.01 [facility] [id number] [place] [address] 92963- 3993 Mar, [facility] [id number] [place] [address] 92474- 8621 Mar, Encounter for Depo-Provera contraception Z30.42 [facility] [id number] [place] [address] 49515- 2394 February, [facility] [id number] [place] [address] 32289- 9480 February, [facility] [id number] [place] [address] 53446- 8595 February, Chronic pain G89.29 ; Essential hypertension I10 ; Type 2 diabetes mellitus without complication E11.9 ; HSV (herpes simplex virus) infection B00.9 ; Anxiety F41.9 ; Hypersomnia G47.10 ; Tobacco abuse Z72.0 ; Hand pain, left M79.642 ; Hand pain, right M79.641 ; Left foot pain M79.672 and Heart palpitations R00.2 [facility] [address] [address]- 2190 Jan, [facility] [id number] [place] [address] 72070- 8905 Jan, [place] [facility] [address] [place] [address] 96559- 9917 Jan, [facility] [id number] [place] [address] 10160- 3128 Jan, [facility] [facility] [id number] [place] [address] 57308- 2958 14 Jan, 2016 Upper respiratory infection J06.9 and Type 2 diabetes mellitus without complication E11.9 [facility] [facility] [id number] [place] [address] 38916- 8601 Dec, [place] [id number] [place] [address] 93708- 1930 Dec, Chronic pain G89.29 ; Essential hypertension I10 ; Type 2 diabetes mellitus without complication E11.9 ; HSV (herpes simplex virus) infection B00.9 ; Anxiety F41.9 ; Upper respiratory infection J06.9 ; Hypersomnia G47.10 and Tobacco abuse Z72.0 [address] [place] [address]- 3170 Dec, Encounter for Depo-Provera contraception Z30.42 [place] [id number] [place] [address] 19745- 5422 Dec, [place] [id number] [place] [address] 73003- 2209 Dec, Chronic pain G89.29 ; Sinusitis J32.9 ; Snoring R06.83 and Daytime hypersomnia G47.19 [address] [place] [address]- 2369 Nov, HSV (herpes simplex virus) infection B00.9 ; Encounter for Papanicolaou smear for cervical cancer screening Z12.4 ; Screening for STD sexually transmitted disease Z11.3 and Bartholin's gland cyst N75.0 [facility] [id number] [place] [address] 80201- 9624 Nov, [facility] [id number] [place] [address] 66195- 5135 Nov, [facility] [id number] [place] [address] 71142- 6754 Nov, Essential hypertension I10 ; Type 2 diabetes mellitus without complication E11.9 ; HSV (herpes simplex virus) infection B00.9 ; Spinal stenosis, lumbar region M48.06 and Vaginal yeast infection B37.3 [facility] [facility] [id number] [place] [address] 29944- 7032 Nov, [place] [id number] [place] [address] 44580- 4420 Nov, [place] [id number] [place] [address] 82419- 3317 Oct, [place] [id number] [place] [address] 01737- 7695 Oct, HSV (herpes simplex virus) infection B00.9 ; Yeast infection B37.9 ; Change in bowel habit R19.4 ; Nausea & vomiting R11.2 and Gastroesophageal reflux disease without esophagitis K21.9 [facility] [facility] [address] [place] [address] 36487- 6474 Oct, [facility] [facility] [id number] [place] [address] 58398- 0728 Oct, Type 2 diabetes mellitus without complication E11.9 ; Essential hypertension I10 and Acute maxillary sinusitis, recurrence not specified J01.00 [facility] [facility] [address] [place] [address] 67403- 2669 Oct, [place] [id number] [place] [address] 56801- 1629 Oct, [facility] [place] 54158- 9378 Oct, Exposure to head lice Z20.7 ; Blood glucose abnormal R73.09 ; Boil of buttock L02.32 and Type 2 diabetes mellitus without complication E11.[address] 97039- 7474 Oct, [address] 99636- 9198 Sep, [address] 64762- 2966 Sep, [address] 62079- 8086 Aug, Encounter for Depo-Provera contraception Z30.[address] 15191- 2441 Aug, Anxiety F41.9 ; Spinal stenosis, lumbar region M48.06 ; Radiculopathy of lumbar region M54.16 ; Asthma J45.909 ; GERD (gastroesophageal reflux disease) K21.9 ; Essential hypertension I10 and Long-term use of high- risk medication Z79.[address] 27935- 0649 Jul, [address] 69568- 6931 Jun, Hemorrhoid 455.[address] 02648- 9854 Jun, [address] 28060- 5325 Jun, Anxiety 300.00 ; Asthma 493.90 ; Hyperhidrosis 705.21 ; Chest discomfort 786.59 and Upper respiratory infection 465.[address] 39049- 7384 May, Encounter for Depo-Provera contraception V25.49 [place] [address] [place] [address] 33271- 4504 May, [facility] [id number] [place] [address] 88631- 9915 May, [place] [id number] [place] [address] 53443- 8529 May, Spinal stenosis of lumbar region with radiculopathy 724.02 ; Bulging of intervertebral disc between L4 and L5 722.10 ; GERD ( gastroesophageal reflux disease) 530.81 ; Chronic pain 338.29 ; Declining mobility 799.89 and Epigastric pain 789.06 [place] [address] 06096- 0123 Apr, [place] [address] 14140- 4171 Apr, Nausea 787.02 and Heart burn 787.1 [place] [address] 52593- 7008 Mar, Lumbago 724.2 ; Vitamin D deficiency 268.9 ; Anxiety 300.00 ; Allergic rhinitis 477.9 and Contraceptive surveillance V25.40 [place] [id number] [place] [address] 46675- 3939 February, 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 ; Chronic pain 338.29 and Vaginal discharge 623.5 [place] [id number] [place] [address] 24005- 0292 February, [place] [id number] [place] [address] 22942- 7739 February, [place] [id number] [place] [address] 94992- 3274 Jan, [place] [id number] [place] [address] 36615- 1892 Jan, [place] [address] [facility] [place] [address]- 9337 26 Dec, 2014 [facility] [place] [facility] [address] [id number] [place] [address]- 0169 Dec, [facility] [place] [facility] [address] [id number] [place] [address]- 1939 Dec, [facility] [place] [facility] [address] [id number] [place] [address]- 1739 Dec, [facility] [place] [facility] [address] [id number] [place] [address]- 2447 18 Dec, 2014 [facility] [place] [facility] [address] [id number] [place] [address]- 4669 18 Dec, 2014 [facility] [place] [facility] [address] [id number] [place] [address]- 0831 Dec, [facility] [place] [facility] [address] [id number] [place] [address]- 4672 Dec, [facility] [place] [facility] [address] [id number] [place] [address]- 4644 Dec, [facility] [place] [facility] [address] [id number] [place] [address]- 2085 Dec, [facility] [place] [facility] [address] [facility] [id number] [place] [address]- 7932 Dec, [facility] [place] [facility] [address] [id number] [place] [address]- 6161 Dec, [facility] [place] [facility] [address] [id number] [place] [address]- 0316 Nov, [facility] [place] [facility] [address] [id number] [place] [address]- 3949 Nov, [facility] [place] [facility] [address] [id number] [place] [address]- 1177 Nov, [facility] [place] [facility] [address] [id number] [place] [address]- 4107 Nov, [facility] [place] [facility] [address] [id number] [place] [address]- 6601 23 Nov, 2014 [facility] [place] [facility] [address] [id number] [place] [address]- 1136 23 Nov, 2014 [facility] [place] [facility] [address] [facility] [id number] [place] [address]- 9188 16 Nov, 2014 [facility] [place] [facility] [address] [facility] [id number] [place] [address]- 9652 16 Nov, 2014 [facility] [place] [facility] [address] [id number] [place] [address] 13 Nov, 2014 [facility] [place] [facility] [address] [facility] [id number] [place] [address] 13 Nov, 2014 [facility] [place] [facility] [address] [facility] [id number] [place] [address] 13 Nov, 2014 [facility] [place] [facility] [address] [facility] [id number] [place] [address] 13 Nov, 2014 [facility] [place] [facility] [address] [facility] [id number] [place] [address] 13 Nov, 2014 [facility] [place] [facility] [address] [facility] [id number] [place] [address] 13 Nov, 2014 [facility] [place] [facility] [address] [facility] [id number] [place] [address] 13 Nov, 2014 [facility] [place] [facility] [address] [facility] [id number] [place] [address] 13 Nov, 2014 [facility] [place] [facility] [address] [facility] [id number] [place] [address] 10 Nov, 2014 [facility] [place] [facility] [address] [facility] [id number] [place] [address] 10 Nov, 2014 [facility] [place] [facility] [address] [facility] [id number] [place] [address] 09 Nov, 2014 [facility] [place] [facility] [address] [id number] [place] [address] Nov, [facility] [place] [facility] [address] [id number] [place] [address] Nov, [facility] [place] [facility] [address] [id number] [place] [address] Nov, [facility] [place] [facility] [address] [id number] [place] [address] Nov, [facility] [place] [facility] [address] [id number] [place] [address] Oct, [facility] [place] [facility] [address] [id number] [place] [address] Oct, [facility] [place] [facility] [address] [id number] [place] [address] Oct, [facility] [facility] [address] [id number] [place] [address] Oct, [facility] [place] [facility] [address] [id number] [place] [address] 6628 Oct, [facility] [place] [facility] [address] [id number] [place] [address] 3163 Oct, [facility] [place] [facility] [address] [id number] [place] [address] 7669 Oct, [facility] [place] [facility] [address] [id number], [place] [address] 1480 Oct, [facility] [place] [facility] [address] [id number] [place] [address] 9375 Oct, [facility] [place] [facility] [address] [id number] [place] [address] 3587 Oct, [facility] [place] [facility] [address] [id number] [place] [address] 1854 Oct, [facility] [place] [facility] [address] [id number], [place] [address] 7255 Oct, [facility] [address] [id number] [place] [address] 7997 Oct, [facility] [address] [id number] [place] [address] 3986 Oct, [facility] [place] [facility] [address] [facility] [id number] [place] [address] 3783 Oct, [facility] [place] [facility] [address] [id number] [place] [address]- 1060 Oct, [facility] [place] [facility] [address] [id number] [place] [address]- 7022 Oct, [facility] [place] [facility] [address] [id number] [place] [address] 1923 Oct, [facility] [address] [id number] [address]- [address] Oct, [facility] [place] [facility] [address] [id number] [place] [address]- 3974 Oct, [facility] [place] [facility] [address] [id number] [place] [address] 0303 Oct, [facility] [address] [facility] [id number] [place] [address]- 4420 Sep, [facility] [address] [id number] [place] [address]- 2334 29 Sep, 2014 [facility] [facility] [address] [id number], [place] [address] 62[address] Sep, [facility] [address] [id number] [place] [address]- 1372 18 Sep, 2014 [facility] [address] [facility] [id number] [place] [address]- 2954 17 Sep, 2014 [facility] [address] [facility] [id number] [place] [address]- 1808 17 Sep, 2014 [facility] [address] [id number] [place] [address]- 8046 15 Sep, 2014 [facility] [address] [id number] [place] [address]- 0736 15 Sep, 2014 [facility] [address] [id number] [place] [address]- 2016 12 Sep, 2014 [facility] [facility] [address] [id number] [place] [address]- 4716 12 Sep, 2014 [facility] [address] [id number] [place] [address]- 5839 Sep, [facility] [address] [id number] [place] [address]- 1285 Sep, [facility] [address] [id number] [place] [address]- 7781 Sep, [facility] [address] [id number] [place] [address]- 5493 Sep, [facility] [address] [id number] [place] [address]- 1825 Sep, [facility] [address] [id number] [place] [address]- 3302 Sep, [facility] [address] [id number] [place] [address]- 5978 Sep, [facility] [address] [id number] [place] [address]- 3447 Sep, [facility] [address] [id number] [place] [address]- 8096 Sep, [facility] [address] [id number] [place] [address]- 5656 Sep, [facility] [address] [id number] [place] [address]- 4077 Aug, [facility] [address] [id number] [place] [address] 4458 Aug, [facility] [address] [id number] [place] [address]- 3837 Aug, [facility] [address] [id number] [place] [address]- 0810 Aug, [facility] [address] [id number] [place] [address]- 8576 Aug, [facility] [address] [id number] [place] [address]- 3341 Aug, [facility] [address] [id number] [place] [address]- 5100 Aug, [facility] [address] [id number] [place] [address]- 3036 Aug, [facility] [address] [id number] [place] [address]- 7293 Aug, [facility] [address] [id number] [place] [address]- 4716 Jul, [facility] [address] [id number] [place] [address]- 5793 Jul, [facility] [address] [id number] [place] [address]- 7597 Jul, [facility] [address] [id number], [place] [address]- 6233 Jul, [facility] [address] [id number], [place] [address]- 6544 Jul, [facility] [address] [id number] [place] [address]- 4287 16 Jul, 2014 [facility] [address] [id number], [place] [address]- 2676 Jul, [facility] [address] [id number], [place] [address]- 4358 Jul, [facility] [address] [id number] [place] [address]- 4166 10 Jul, 2013 [facility] [address] [id number] [place] [address]- 1006 10 Jul, 2013 [facility] [address] [id number] [place] [address]- 5376 10 Jul, 2014 [facility] [address] [id number] [place] [address]- 4516 10 Jul, 2014 [facility] [address] [id number] [place] [address]- 3974 07 Jul, 2014 [facility] [address] [id number] [place] [address]- 9387 07 Jul, 2014 [facility] [address] [id number] [place] [address]- 8903 30 Jun, 2013 [facility] [address] [id number] [place] [address]- 1548 30 Jun, 2013 [facility] [address] [id number] [place] [address] 2543 25 Sep, 2013 [facility] [address] [id number] [place] [address] 2546 25 Sep, 2013 [facility] [address] [id number] [place] [address] 2542 25 Sep, 2013 [facility] [address] [id number] [place] [address] 2546 25 Sep, 2013 [facility] [address] [id number] [place] [address] 2546 24 Sep, 2013 [facility] [address] [id number] [place] [address] 2546 24 Sep, 2013 [facility] [address] [id number] [place] [address] 2546 22 Sep, 2013 [facility] [address] [id number] [place] [address] 2540 22 Sep, 2013 [facility] [address] [id number] [place] [address]- 5471 17 Sep, 2013 [facility] [address] [id number] [place] [address]- 4945 17 Sep, 2013 [facility] [address] [id number] [place] [address]- 2545 16 Jun, 2013 [facility] [address] [id number] [place] [address] 2549 16 Jun, 2013 [facility] [address] [id number] [place] [address]- 1027 15 Jun, 2013 [facility] [address] [id number] [place] [address]- 4064 15 Jun, 2013 [facility] [address] [id number] [place] [address]- 5104 12 Jun, 2013 [facility] [address] [id number] [place] [address]- 6001 12 Jun, 2013 [facility] [address] [id number] [place] [address]- 9068 11 Jun, 2013 [facility] [address] [id number] [place] [address]- 3645 11 Jun, 2013 [facility] [address] [id number] [place] [address]- 3997 11 Jun, 2013 [facility] [address] [id number] [place] [address]- 2542 11 Jun, 2013 [facility] [address] [id number] [place] [address]- 254 09 Sep, 2013 [facility] [address] [id number] [place] [address]- 2548 09 Sep, 2013 [facility] [address] [id number] [place] [address]- 1447 03 Sep, 2013 [facility] [address] [id number] [place] [address]- 2358 Jun, [facility] [address] [id number] [place] [address]- 9242 May, [facility] [address] [id number] [place] [address]- 7201 May, [facility] [address] [id number] [place] [address]- 9252 May, [facility] [address] [id number] [place] [address]- 3885 May, [facility] [address] [id number] [place] [address]- 1956 May, [facility] [address] [id number] [place] [address]- 9383 May, [facility] [address] [id number] [place] [address]- 5002 May, [facility] [address] [id number] [place] [address]- 3873 May, [facility] [address] [id number] [place] [address]- 3175 May, [facility] [address] [id number] [place] [address]- 9563 May, [facility] [address] [id number] [place] [address]- 0298 May, [facility] [address] [id number] [place] [address]- 9876 May, [facility] [address] [id number] [place] [address]- 3576 May, [facility] [address] [id number] [place] [address]- 9150 Apr, [facility] [address] [id number] [place] [address]- 4528 Apr, [facility] [address] [id number] [place] [address]- 5442 Apr, [facility] [address] [id number] [place] [address]- 1177 Apr, [facility] [address] [id number] [place] [address]- 9466 Apr, [facility] [address] [id number] [place] [address]- 8876 Mar, [facility] [address] [id number] [place] [address]- 1966 Mar, [facility] [address] [id number] [place] [address]- 2367 Mar, [facility] [address] [id number] [place] [address]- 9958 February, [facility] [address] [id number] [place] [address]- 4468 February, [facility] [address] [id number] [place] [address]- 3679 February, [facility] [address] [id number] [place] [address]- 3679 February, [facility] [address] [id number] [place] [address]- 8575 February, [facility] [address] [id number] [place] [address]- 9891 February, [facility] [address] [id number] [place] [address]- 4358 February, [facility] [address] [id number] [place] [address]- 5126 February, [facility] [address] [id number] [place] [address]- 8856 February, [facility] [address] [id number] [place] 0193 Jan, [facility] [address] [id number] [place] [address]- 2184 Jan, [facility] [address] [id number] [place] [address]- 6558 Jan, [facility] [address] [id number] [place] [address]- 1056 Jan, [facility] [address] [id number] [place] [address]- 3447 Jan, [facility] [address] [id number] [place] [address]- 4579 Dec, [facility] [address] [id number] [place] [address]- 2859 Dec, [facility] [address] [id number] [place] [address]- 5968 Dec, [facility] [address] [id number] [place] [address]- 5568 Dec, [facility] [address] [id number] [place] [address]- 2040 Dec, [facility] [address] [id number] [place] [address]- 6297 Nov, [facility] [address] [id number] [place] [address]- 6246 Nov, [facility] [address] [id number] [place] [address]- 8960 Nov, [facility] [address] [id number] [place] [address]- 7133 Nov, [facility] [address] [id number] [place] [address]65 Oct, [facility] [address] [id number] [place] [address]- 1696 Oct, [facility] [address] [id number] [place] [address]- 9494 28 Oct, 2013 [facility] [address] [id number] [place] [address]- 2879 Oct, [facility] [place] [address] [id number] [place] [address]- 7757 Oct, [facility] [place] [facility] [address] [id number] [place] [address]- 2774 Oct, [facility] [address] [id number] [place] [address]- 9493 Oct, [facility] [place] [facility] [address] [id number] [place] [address]- 7820 Oct, [facility] [place] [facility] [address] [id number] [place] [address]- 8635 Oct, [facility] [place] [facility] [address] [id number] [place] [address]- 7347 Oct, [facility] [place] [facility] [address] [id number] [place] [address]- 7065 Aug, [facility] [place] [facility] [address] [id number] [place] [address]- 2575 Aug, [facility] [place] [facility] [address] [id number] [place] [address]- 9557 Jul, [facility] [place] [facility] [address] [id number] [place] [address]- 2103 Jul, [facility] [place] [facility] [address] [id number] [place] [address]- 9327 Jul, [facility] [place] [facility] [address] [id number] [place] [address]- 6009 Jul, [facility] [place] [facility] [address] [id number] [place] [address]- 3278 Jul, [facility] [place] [facility] [address] [id number] [place] [address]- 5350 Jul, [facility] [place] [facility] [address] [id number] [place] [address]- 6666 Apr, [facility] [place] [facility] [address] [id number] [place] [address]- 9584 Dec, [facility] [place] [facility] [address] [id number] [place] [address]- 0190 Nov, [facility] [place] [facility] [address] [id number] [place] [address]- 9807 Nov, [facility] [place] [facility] [address] [id number] [place] [address]- 5558 Nov, [facility] [place] [facility] [address] [id number] [place] [address]- 0698 Oct, [facility] [place] [facility] [address] [id number] [place] [address]- 3170 Sep, [facility] [place] [facility] [address] [id number] [place] [address]- 7227 Sep, [facility] [place] [facility] [address] [id number] [place] [address]- 0839 Sep, [facility] [place] [facility] [address] [id number] [place] [address]- 4562 Sep, [facility] [place] [facility] [address] [id number], [place] [address]- 1036 Aug, [facility] [place] [facility] [address] [id number], [place] [address]- 1423 Aug, [facility] [place] [facility] [address] [id number] [place] [address]- 1297 Jul, [facility] [place] [facility] [address] [id number] [place] [address]- 2613 Jul, [facility] [place] [facility] [address] [id number], [place] [address]- 2317 28 Jun, 2012 [facility] [place] [facility] [address] [id number], [place] [address]- 8169 26 Jun, 2012 [facility] [place] [facility] [address] [id number] [place] [address]- 6296 24 Jun, 2012 [facility] [place] [facility] [address] [id number] [place] [address]- 4476 24 Jun, 2012 [facility] [place] [facility] [address] [id number] [place] [address]- 8126 Jun, [facility] [place] [facility] [address] [id number] [place] [address]- 1371 31 Apr, 2012 [facility] [place] [facility] [address] [id number] [place] [address]- 4333 30 Apr, 2012 [facility] [place] [facility] [address] [id number] [place] [address]- 9358 Apr, [facility] [address] [id number] [place] [address]- 9294 Mar, [facility] [place] [facility] [address] [id number] [place] [address]- 1389 Mar, [facility] [place] [facility] [address] [id number] [place] [address]- 1346 Mar, [facility] [place] [facility] [address] [id number] [place] [address]- 8636 February, [facility] [place] [facility] [address] [id number] [place] [address]- 2672 Jan, [facility] [place] [facility] [address] [id number] [place] [address]- 9630 Dec, [facility] [place] [facility] [address] [id number] [place] [address]- 6760 Dec, [facility] [place] [facility] [address] [id number] [place] [address]- 6545 Dec, [facility] [place] [facility] [address] [id number] [place] [address]- 7922 Dec, [facility] [place] [facility] [address] [id number] [place] [address]- 5805 Dec, [facility] [place] [facility] [address] [id number] [place] [address]- 3204 14 Nov, 2011 [facility] [place] [facility] [address] [id number] [place] [address] 13 Nov, 2011 [facility] [place] [facility] [address] [id number] [place] [address] Oct, [facility] [place] [facility] [address] [id number] [place] [address] Oct, [facility] [place] [facility] [address] [id number] [place] [address] Oct, [facility] [place] [facility] [address] [id number] [place] [address] Sep, [facility] [place] [facility] [address] [id number] [place] [address] Aug, [facility] [place] [facility] [address] [id number] [place] [address] Aug, [facility] [place] [facility] [address] [id number] [place] [address] Jul, [facility] [place] [facility] [address] [id number] [place] [address] 24 Jul, 2011 [facility] [place] [facility] [address] [id number] [place] [address] 19 Jul, 2011 [facility] [place] [facility] [address] [id number] [place] [address] 13 Jan, 2011 [facility] [place] [facility] [address] [id number] [place] [address] 29 Sep, 2010 [facility] [place] [facility] [address] [id number] [place] [address] 27 Sep, 2010 [facility] [place] [facility] [address] [id number] [place] [address] Sep, [facility] [place] [facility] [address] [id number] [place] [address] Sep, [facility] [place] [facility] [address] [id number] [place] [address] Sep, [facility] [place] [facility] [address] [facility] [id number] [place] [address] Aug, [facility] [place] [facility] [address] [id number] [place] [address] 16 Aug, 2010 [facility] [place] [facility] [address] [id number] [place] [address] Aug, [facility] [place] [facility] [address] [id number] [place] [address] Jul, [facility] [place] [facility] [address] [id number] [place] [address] Jul, [facility] [place] [facility] [address] [id number], [place] [address] Jul, [facility] [place] [facility] [address] [id number], [place] [address] May, [facility] [place] [facility] [address] [id number], [place] [address] Apr, [facility] [place] [facility] [address] [id number], [place] [address] Dec, [facility] [place] [facility] [address] [id number], [place] [address] 17 Sep, 2009 [facility] [place] [facility] [address] [id number] [place] [address] 17 Sep, 2009 [facility] [place] [facility] [address] [id number], [place] [address] Aug, [facility] [place] [facility] [address] [id number], [place] [address] Aug, [facility] [place] [facility] [address] [facility] [id number] [place] [address] Jul, [facility] [address] [facility] [id number] [place] [address] Mar, IMMUNIZATIONS No Known Immunizations SOCIAL HISTORY Never Assessed REASON FOR VISIT BS f/u attempt PLAN OF CARE VITAL SIGNS MEDICATIONS Unknown [...]
--- OUTSIDE RECORDS SUMMARY | 2018-10-08 20:02 | XMS REPORT ---
Author Author JENNY WOLF [facility] Address [address] [place] [address] Care Team Providers Care Vest Tailor Name Role Phone JENNY WOLF Unavailable PROBLEMS Type Condition ICD9-CM Code LBE34-GW Code Onset Dates Condition Status SNOMED Code Problem Chronic pain G89.29 Active 80539422 Problem HSV (herpes simplex virus) infection B00.9 Active 02773348 Problem Gastroesophageal reflux disease without esophagitis K21.9 Active 055752715 Problem Type 2 diabetes mellitus with diabetic neuropathy, unspecified E11.40 Active 42604812 Problem superintendent terminal 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 Z79.4 Active 279985884 Problem Edema of both feet R60.0 Active 155532929 Problem Tobacco abuse Z72.0 Active 79864151 Problem Chronic migraine G43.709 Active 04233315 Problem Mixed hyperlipidemia E78.2 Active 037847972 Problem Spinal stenosis, lumbar region M48.06 Active 04291803 Problem Anxiety F41.9 Active 81399692 Problem Radiculopathy of lumbar region M54.16 Active 684375252 Problem Bulging lumbar disc M51.26 Active 611817531 Problem Asthma J45.909 Active 901592412 Problem Essential hypertension I10 Active 93023022 ALLERGIES No Information ENCOUNTERS Encounter Location Date Diagnosis [facility] [id number], [place] [address] Mar, [facility] [address], [place] [address] Mar, [facility] [id number] [place] [address] 54231- 6057 Mar, Chronic pain G89.29 [facility] [id number], [place] [address] 4490 February, Chronic pain G89.29 [facility] [id number] [place] [address] 19630- 2214 Jan, Chronic pain G89.29 [facility] [address] 70693- 8864 Jan, superintendent terminal 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 Z79.4 [facility] [facility] [address] 36860- 9126 Jan, Encounter for Depo-Provera contraception Z30.42 [facility] [facility] [address] 33062- 2442 Jan, [place] [facility] [address] 08973- 0290 Jan, Chronic pain G89.29 and Anxiety F41.9 [facility] [address] 34972- 2517 Jan, [facility] [address] 23611- 5685 Dec, [facility] [address] 16590- 9157 Dec, Gastroesophageal reflux disease without esophagitis K21.9 and Anxiety F41.9 [facility] [address] 64463- 3262 Dec, Essential hypertension I10 ; Mixed hyperlipidemia E78.2 ; Type 2 diabetes mellitus with diabetic neuropathy, unspecified E11.40 ; senior living 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 Z79.4 ; Chronic pain G89.29 ; HSV (herpes simplex virus) infection B00.9 ; Anxiety F41.9 and Gastroesophageal reflux disease without esophagitis K21.9 [place] [facility] [address] 64802- 0965 Dec, Chronic pain G89.29 and Chronic migraine G43.709 [facility] [facility] [address] 30714- 9735 Nov, [facility] [id number] [place] [address] 87419- 7373 08 Nov, 2017 Essential hypertension I10 and Chronic pain G89.29 [facility] [id number] [place] [address] 39190- 1867 05 Nov, 2017 Chronic pain G89.29 ; Essential hypertension I10 and Type 2 diabetes mellitus without complication E11.9 [facility] [address] 15491- 3302 Oct, Chronic pain G89.29 [facility] [id number] [place] [address] 41282- 5297 Oct, [facility] [id number] [place] [address] 35448- 5735 Sep, Type 2 diabetes mellitus without complication E11.9 ; Essential hypertension I10 ; superintendent terminal (current) use of insulin Z79.4 ; Chronic migraine G43.709 ; Chronic pain G89.29 and Acute non-recurrent maxillary sinusitis J01.00 [facility] [id number] [place] [address] 06940- 0183 Sep, Encounter for Depo-Provera contraception Z30.42 [facility] [id number] [place] [address] 93156- 8332 Sep, Chronic pain G89.29 and Radiculopathy of lumbar region M54.16 [facility] [id number] [place] [address] 92861- 9754 Sep, [facility] [id number] [place] [address] 80529- 4863 Sep, [facility] [facility] [address] 74188- 2782 Aug, Type 2 diabetes mellitus without complication E11.9 [facility] [id number] [place] [address] 42246- 3369 Aug, [facility] [address] 16160- 9163 Aug, Radiculopathy of lumbar region M54.16 and Chronic pain G89.29 [facility] [address], [place] [address] 4256 Aug, Type 2 diabetes mellitus without complication E11.9 [facility] [id number], [place] [address] 2786 Aug, Type 2 diabetes mellitus without complication E11.9 [facility] [address] [facility] [id number] [address] 5602 Jul, Type 2 diabetes mellitus without complication E11.9 [facility] [address], [place] [address] 1043 Jul, [facility] [id number], [place] [address]- 1328 Jul, Chronic pain G89.29 [facility] [id number], [place] [address]- 2108 Jul, [facility] [id number], [place] [address]- 1443 Jul, [facility] [id number], [place] [address]- 8090 Jul, Type 2 diabetes mellitus without complication E11.9 [facility] [address], [place] [address] 3002 Jul, [facility] [id number], [place] [address]- 0131 Jul, Type 2 diabetes mellitus without complication E11.9 [facility] [address] [facility] [id number] [address]- 3783 Jul, [facility] [address] [facility] [id number] [address] 3539 Jul, [facility] [address], [place] [address]- 2018 Jul, [facility] [id number] [place] [address] 27130- 7144 Jun, Type 2 diabetes mellitus without complication E11.9 [facility] [address] 51774- 8745 Jun, Chronic migraine G43.709 ; Type 2 diabetes mellitus without complication E11.9 ; Calculus of right kidney N20.0 ; Yeast dermatitis B37.2 and HSV (herpes simplex virus) infection B00.9 [place] [address] 45337- 9531 Jun, Type 2 diabetes mellitus without complication E11.9 [facility] [address] 72322- 2476 Jun, [place] [address] 72725- 1457 Jun, Radiculopathy of lumbar region M54.16 and Chronic pain G89.29 [facility] [id number] [place] [address] 53637- 6968 Jun, Encounter for Depo-Provera contraception Z30.42 [facility] [address] 55742- 0318 Jun, Type 2 diabetes mellitus without complication E11.9 [facility] [id number] [place] [address] 76750- 4366 Jun, [facility] [id number] [place] [address] 65817 -4265 May, Acute nasopharyngitis (common cold) J00 [place] [address] 91050- 7730 May, Chronic pain G89.29 [place] [address] 54017- 4979 May, Headache following lumbar puncture G97.1 [place] [address] 42866- 9817 May, Radiculopathy of lumbar region M54.16 [facility] [id number] [place] [address] 01581- 2566 Apr, [facility] [id number] [place] [address] 24684- 5377 Apr, Type 2 diabetes mellitus without complication E11.9 ; Chronic pain G89.29 ; Essential hypertension I10 ; Radiculopathy of lumbar region M54.16 ; Spinal stenosis, lumbar region M48.06 ; Gastroesophageal reflux disease without esophagitis K21.9 ; HSV (herpes simplex virus) infection B00.9 ; Mixed hyperlipidemia E78.2 ; Anxiety F41.9 and Asthma J45.909 [place] [id number] [place] [address] 36695- 0012 Apr, Encounter for Depo-Provera contraception Z30.42 [place] [address] 26872- 4341 Apr, Chronic pain G89.29 and Anxiety F41.9 [facility] [id number] [place] [address] 97058- 0608 Mar, [facility] [facility] [address] 20134- 7644 Mar, [facility] [id number] [place] [address] 20886- 7377 Mar, Mixed hyperlipidemia E78.2 [facility] [id number] [place] [address] 57636- 0310 Mar, Type 2 diabetes mellitus without complication E11.9 ; Chronic pain G89.29 ; Essential hypertension I10 ; Radiculopathy of lumbar region M54.16 ; Spinal stenosis, lumbar region M48.06 ; Gastroesophageal reflux disease without esophagitis K21.9 ; HSV (herpes simplex virus) infection B00.9 ; Mixed hyperlipidemia E78.2 and Anxiety F41.9 [place] [address] 41037- 5795 Mar, [facility] [address], [place] [address]- 1241 Mar, [facility] [id number] [place] [address] 17817- 1734 Mar, [facility] [address] [place] [address] 72745- 6741 February, Chronic pain G89.29 [facility] [id number] [place] [address] 02166- 9527 February, [facility] [id number] [place] [address] 96539- 5847 Jan, Chronic pain G89.29 [facility] [id number] [place] [address] 37902- 9997 Jan, Type 2 diabetes mellitus without complication E11.9 [facility] [id number] [place] [address] 16030- 4431 Jan, [facility] [id number] [place] [address] 21413- 4757 Jan, [facility] [id number] [place] [address] 30819- 6602 Jan, [facility] [id number] [place] [address] 98297- 6528 Jan, Type 2 diabetes mellitus without complication [...] J01.00 and Encounter for Depo-Provera contraception Z30.42 [facility] [address] [place] [address] 63052- 0224 Dec, Chronic pain G89.29 [place] [address] [place] [address] 96160- 3514 Dec, Abnormal ankle brachial index (BERNARDINO) R68.89 [place] [id number] [place] [address] 75208- 5930 Dec, [id number] [place] [address] 66056- 0583 Dec, Routine gynecological examination Z01.419 ; Chronic [...] B00.9 and Allergic rhinitis 477.9 [id number] [place] [address] 04829- 3704 28 Nov, 2016 Chronic pain G89.29 [id number] [place] [address] 24194- 4264 02 Nov, 2016 Chronic pain G89.29 ; [...] media of both ears H65.113 [id number] [place] [address] 57640- 7992 Oct, [id number] [place] [address] 00075- 7520 Oct, Chronic pain G89.29 [id number] [place] [address] 12285- 4040 Oct, Chronic pain G89.29 [place] [id number] [place] [address] 17148- 0187 Sep, Chronic pain G89.29 ; Type 2 diabetes mellitus without complication E11.9 ; Essential hypertension I10 ; Radiculopathy of lumbar region M54.16 ; Spinal stenosis, lumbar region M48.06 ; Gastroesophageal reflux disease without esophagitis K21.9 ; Encounter for surveillance of injectable contraceptive Z30.42 ; Bilateral cold feet R20.9 ; Pain of left foot M79.672 and Pain in right foot M79.671 [place] [address] 91290- 0750 Sep, [place] [address] 85292- 3706 Aug, [place] [address] 90762- 4908 Aug, [place] [address] 50822- 3438 Aug, Chronic pain G89.29 ; Type 2 diabetes mellitus without complication E11.9 ; Essential hypertension I10 ; Rash and nonspecific skin eruption R21 and Upper respiratory infection, acute J06.9 [place] [address] 26119- 9430 08 Aug, 2016 [address] [address] 48954- 4238 Aug, [place] [address] 84157- 2150 Jul, [address] 66522- 0445 Jul, Dysuria R30.0 ; Encounter for Depo-Provera contraception Z30.42 ; Herpes simplex B00.9 ; Nausea & vomiting R11.2 and Asthma J45.[address] 89298- 6696 21 Jun, 2016 Dysuria R30.0 [facility] [id number] [place] [address] 70655- 3893 19 Jun, 2016 Dysuria R30.0 [facility] [id number] [place] [address] 54611- 6375 15 Jun, 2016 [facility] [id number] [place] [address] 27237- 1870 13 Jun, 2016 [facility] [id number] [place] [address] 32756- 4485 May, [facility] [id number] [place] [address] 81376- 7381 May, [facility] [id number] [place] [address] 75787- 7171 May, Chronic pain G89.29 ; Essential hypertension I10 ; Type 2 diabetes mellitus without complication E11.9 ; Edema of both feet R60.0 and Rash and nonspecific skin eruption R21 [facility] [id number] [place] [address] 49583- 9123 Apr, [facility] [id number] [place] [address] 68577- 7650 Mar, Carpal tunnel syndrome, left upper limb G56.02 and Carpal tunnel syndrome, right upper limb G56.01 [facility] [id number] [place] [address] 16023- 7070 Mar, [facility] [id number] [place] [address] 79630- 0267 Mar, Encounter for Depo-Provera contraception Z30.42 [facility] [id number] [place] [address] 20145- 9979 February, [facility] [id number] [place] [address] 35868- 4737 February, [facility] [address] 08831- 5155 February, Chronic pain G89.29 ; Essential hypertension I10 ; Type 2 diabetes mellitus without complication E11.9 ; HSV (herpes simplex virus) infection B00.9 ; Anxiety F41.9 ; Hypersomnia G47.10 ; Tobacco abuse Z72.0 ; Hand pain, left M79.642 ; Hand pain, right M79.641 ; Left foot pain M79.672 and Heart palpitations R00.2 [place] [address] 99346- 6726 Jan, [place] [address] 89592- 7824 Jan, [place] [address] 25271- 8367 Jan, [place] [address] 98395- 2254 Jan, [place] [address] 78451- 2056 Jan, Upper respiratory infection J06.9 and Type 2 diabetes mellitus without complication E11.9 [place] [address] 81281- 6145 Dec, [place] [address] 19438- 9079 Dec, Chronic pain G89.29 ; Essential hypertension I10 ; Type 2 diabetes mellitus without complication E11.9 ; HSV (herpes simplex virus) infection B00.9 ; Anxiety F41.9 ; Upper respiratory infection J06.9 ; Hypersomnia G47.10 and Tobacco abuse Z72.0 [place] [address] 51712- 6157 Dec, Encounter for Depo-Provera contraception Z30.42 [place] [address] 85451- 1490 02 Dec, 2015 [place] [address] 71567- 8309 Dec, Chronic pain G89.29 ; Sinusitis J32.9 ; Snoring R06.83 and Daytime hypersomnia G47.19 [place] [address] 63719- 5805 Nov, HSV (herpes simplex virus) infection B00.9 ; Encounter for Papanicolaou smear for cervical cancer screening Z12.4 ; Screening for STD sexually transmitted disease Z11.3 and Bartholin's gland cyst N75.0 [address] [address] 51136- 4403 Nov, [place] [address] 98960- 5414 Nov, [place] [address] 55369- 7785 Nov, Essential hypertension I10 ; Type 2 diabetes mellitus without complication E11.9 ; HSV (herpes simplex virus) infection B00.9 ; Spinal stenosis, lumbar region M48.06 and Vaginal yeast infection B37.3 [place] [address] 59913- 4113 Nov, [place] [address] 11271- 2195 Nov, [place] [address] 08365- 0913 Oct, [place] [address] 90535- 0328 Oct, HSV (herpes simplex virus) infection B00.9 ; Yeast infection B37.9 ; Change in bowel habit R19.4 ; Nausea & vomiting R11.2 and Gastroesophageal reflux disease without esophagitis K21.9 [facility] [id number] [place] [address] 67831- 6494 Oct, [place] [address] 63250- 6473 Oct, Type 2 diabetes mellitus without complication E11.9 ; Essential hypertension I10 and Acute maxillary sinusitis, recurrence not specified J01.[address] 77112- 7048 Oct, [place] [address] 75599- 6461 Oct, [address] 24955- 3299 Oct, Exposure to head lice Z20.7 ; Blood glucose abnormal R73.09 ; Boil of buttock L02.32 and Type 2 diabetes mellitus without complication E11.[address] 86378- 7324 Oct, [address] 37424- 0704 Sep, [address] 52069- 5391 Sep, [address] 17809- 8279 Aug, Encounter for Depo-Provera contraception Z30.[address] 89637- 4414 Aug, Anxiety F41.9 ; Spinal stenosis, lumbar region M48.06 ; Radiculopathy of lumbar region M54.16 ; Asthma J45.909 ; GERD (gastroesophageal reflux disease) K21.9 ; Essential hypertension I10 and Long-term use of high- risk medication Z79.[address] 43801- 9101 Jul, [address] 17995- 8982 Jun, Hemorrhoid 455.[address] 25681- 5817 Jun, [place] [address] 11930- 0256 Jun, Anxiety 300.00 ; Asthma 493.90 ; Hyperhidrosis 705.21 ; Chest discomfort 786.59 and Upper respiratory infection 465.[address] 71394- 4512 May, Encounter for Depo-Provera contraception V25.[address] 06249- 8919 May, [address] 38049- 1305 May, [address] 19760- 0469 May, Spinal stenosis of lumbar region with radiculopathy 724.02 ; Bulging of intervertebral disc between L4 and L5 722.10 ; GERD ( gastroesophageal reflux disease) 530.81 ; Chronic pain 338.29 ; Declining mobility 799.89 and Epigastric pain 789.[address] 63088- 0764 Apr, [address] 83424- 7504 Apr, Nausea 787.02 and Heart burn 787.[address] 85307- 7231 Mar, Lumbago 724.2 ; Vitamin D deficiency 268.9 ; Anxiety 300.00 ; Allergic rhinitis 477.9 and Contraceptive surveillance V25.[address] 57671- 0693 February, 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 ; Chronic pain 338.29 and Vaginal discharge 623.[address] 83544- 0214 February, [address] [id number] [place] [address]- 8552 February, [facility] [place] [facility] [address] [id number] [place] [address]- 0809 14 Jan, 2015 [facility] [place] [facility] [address] [id number] [place] [address]- 2159 Jan, [facility] [place] [facility] [address] [id number] [place] [address]- 1234 Dec, [facility] [place] [facility] [address] [id number] [place] [address]- 0429 Dec, [facility] [place] [facility] [address] [id number] [place] [address]- 3398 Dec, [facility] [place] [facility] [address] [id number] [place] [address]- 0972 Dec, [facility] [place] [facility] [address] [id number] [place] [address]- 4066 18 Dec, 2014 [facility] [place] [facility] [address] [id number] [place] [address]- 7226 18 Dec, 2014 [facility] [place] [facility] [address] [id number] [place] [address]- 9721 Dec, [facility] [place] [facility] [address] [id number] [place] [address]- 9288 Dec, [facility] [place] [facility] [address] [id number] [place] [address]- 2227 Dec, [facility] [place] [facility] [address] [id number] [place] [address]- 3948 Dec, [facility] [place] [facility] [address] [id number] [place] [address]- 1463 Dec, [facility] [place] [facility] [address] [id number] [place]- 4688 Dec, [facility] [place] [facility] [address] [id number] [place] [address]- 9993 27 Nov, 2014 [facility] [place] [facility] [address] [id number] [place] [address]- 3659 27 Nov, 2014 [facility] [place] [facility] [address] [facility] [id number] [place] [address]- 6746 24 Nov, 2014 [facility] [place] [facility] [address] [facility] [id number] [place] [address]- 8246 24 Nov, 2014 [facility] [place] [facility] [address] [facility] [id number] [place] [address]- 3319 23 Nov, 2014 [facility] [place] [facility] [address] [facility] [id number] [place] [address]- 6966 23 Nov, 2014 [facility] [place] [facility] [address] [facility] [id number] [place] [address]- 4070 16 Nov, 2014 [facility] [place] [facility] [address] [facility] [id number] [place] [address]- 8268 16 Nov, 2014 [facility] [place] [facility] [address] [facility] [id number] [place] [address]- 9127 13 Nov, 2014 [facility] [place] [facility] [address] [facility] [id number] [place] [address]- 0559 13 Nov, 2014 [facility] [place] [facility] [address] [facility] [id number] [place] [address]- 0353 13 Nov, 2014 [facility] [place] [facility] [address] [facility] [id number] [place] [address]- 2546 13 Nov, 2014 [facility] [place] [facility] [address] [facility] [id number] [place] [address]- 2545 13 Nov, 2014 [facility] [place] [facility] [address] [facility] [id number] [place] [address]- 3451 13 Nov, 2014 [facility] [place] [facility] [address] [facility] [id number] [place] [address]- 2545 13 Nov, 2014 [facility] [place] [facility] [address] [facility] [id number] [place] [address]- 8377 13 Nov, 2014 [facility] [place] [facility] [address] [id number] [place] [address]- 4956 Nov, 2014 [facility] [place] [facility] [address] [id number] [place] [address]- 9316 Nov, 2014 [facility] [place] [facility] [address] [id number] [place] [address]- 5256 Nov, 2014 [facility] [place] [facility] [address] [id number] [place] [address]- 6225 Nov, 2014 [facility] [place] [facility] [address] [id number] [place] [address]- 7037 Nov, 2014 [facility] [place] [facility] [address] [id number] [place] [address] Nov, 2014 [facility] [place] [facility] [address] [id number] [place] [address] Nov, [facility] [place] [facility] [address] [id number] [place] [address] Oct, [facility] [place] [facility] [address] [id number] [place] [address] Oct, [facility] [place] [facility] [address] [facility] [id number] [place] [address] Oct, [facility] [place] [facility] [address] [id number] [place] [id number] Oct, [facility] [place] [facility] [address] [id number] [place] [id number] Oct, [facility] [place] [facility] [address] [id number] [place] [address] Oct, [facility] [place] [facility] [address] [facility] [id number] [place] [address] Oct, [facility] [place] [facility] [address] [facility] [id number] [place] [address] Oct, [facility] [place] [facility] [address] [id number] [place] [address] Oct, [facility] [address] [id number] [place] [address] Oct, [facility] [address] [id number] [place] [address] Oct, [facility] [address] [id number] [place] [id number] Oct, [facility] [address] [id number] [place] [address] Oct, [facility] [address] [id number] [place] [address] Oct, [facility] [facility] [address] [id number] [place] [address] Oct, [facility] [address] [id number] [place] [address] Oct, [facility] [address] [id number] [place] [address] 0665 Oct, [facility] [address] [id number] [place] [address] 5437 Oct, [facility] [address] [id number] [place] [address] 6879 Oct, [facility] [address] [id number] [place] [address] 9776 Oct, [facility] [address] [id number] [place] [address] 9558 Oct, [facility] [place] [facility] [address] [id number] [place] [address] 24[address] Sep, [facility] [place] [facility] [address] [id number] [id number] [address] Sep, [facility] [address] [id number] [place] [address]- 8261 Sep, [facility] [place] [facility] [address] [id number] [place] [address]- 4654 18 Sep, 2014 [facility] [place] [facility] [address] [id number] [place] [address]- 5908 17 Sep, 2014 [facility] [place] [facility] [address] [id number] [place] [address]- 1875 17 Sep, 2014 [facility] [place] [facility] [address] [id number] [place] [address]- 5281 15 Sep, 2014 [facility] [place] [facility] [address] [id number] [place] [address]- 7534 15 Sep, 2014 [facility] [place] [facility] [address] [id number] [place] [address]- 4005 12 Sep, 2014 [facility] [place] [facility] [address] [id number] [place] [address]- 4515 12 Sep, 2014 [facility] [place] [facility] [address] [id number] [place] [address]- 3851 11 Sep, 2014 [facility] [place] [facility] [address] [id number] [place] [address]- 9728 11 Sep, 2014 [facility] [place] [facility] [address] [id number] [place] [address]- 1385 11 Sep, 2014 [facility] [place] [facility] [address] [id number] [place] [address]- 6233 11 Sep, 2014 [facility] [place] [facility] [address] [id number] [place] [address]- 3126 11 Sep, 2014 [facility] [place] [facility] [address] [id number] [place] [address]- 7069 11 Sep, 2014 [facility] [place] [facility] [address] [id number] [place] [address]- 5533 10 Sep, 2014 [facility] [place] [facility] [address] [id number] [place] [address]- 4360 10 Sep, 2014 [facility] [place] [facility] [address] [id number], [place] [address] 2481 Sep, [facility] [place] [facility] [address] [id number] [place] [address]- 5243 Sep, [facility] [place] [facility] [address] [id number] [place] [address]- 0210 Aug, [facility] [place] [facility] [address] [id number] [place] [address]- 9446 Aug, [facility] [place] [facility] [address] [id number] [place] [address]- 4724 Aug, [facility] [place] [facility] [address] [id number] [place] [address]- 2209 Aug, [facility] [place] [facility] [address] [id number] [place] [address]- 3565 Aug, [facility] [place] [facility] [address] [id number] [place] [address]- 2404 Aug, [facility] [place] [facility] [address] [id number] [place] [address]- 6514 Aug, [facility] [place] [facility] [address] [id number] [place] [address]- 0624 Aug, [facility] [place] [facility] [address] [id number] [place] [address]- 4488 Aug, [facility] [place] [facility] [address] [id number], [place] [address]- 6113 Jul, [facility] [place] [facility] [address] [id number], [place] [address]- 7514 Jul, [facility] [place] [facility] [address] [id number] [place] [address]- 5506 Jul, [facility] [place] [facility] [address] [id number] [place] [address]- 8199 Jul, [facility] [place] [facility] [address] [id number] [place] [address]- 6284 16 Jul, 2014 [facility] [place] [facility] [address] [id number] [place] [address]- 9296 16 Jul, 2013 [facility] [place] [facility] [address] [id number] [place] [address]- 6583 Jul, [facility] [place] [facility] [address] [id number] [place] [address]- 2996 13 Jul, 2013 [facility] [place] [facility] [address] [id number] [place] [address]- 3426 10 Jul, 2013 [facility] [place] [facility] [address] [id number] [place] [address]- 9226 10 Jul, 2013 [facility] [place] [facility] [address] [id number] [place] [address]- 2555 10 Jul, 2013 [facility] [place] [facility] [address] [id number] [place] [address]- 3857 10 Jul, 2013 [facility] [place] [facility] [address] [id number] [place] [address]- 5531 07 Jul, 2013 [facility] [place] [facility] [address] [id number] [place] [address]- 5831 07 Jul, 2014 [facility] [place] [facility] [address] [id number] [place] [address]- 7820 30 Jun, 2013 [facility] [place] [facility] [address] [id number] [place] [address]- 2352 30 Sep, 2013 [facility] [place] [facility] [address] [id number] [place] [address]- 2543 25 Sep, 2013 [facility] [place] [facility] [address] [id number] [place] [address]- 2546 25 Sep, 2013 [facility] [place] [facility] [address] [id number] [place] [address] 2546 25 Jun, 2013 [facility] [place] [facility] [address] [id number] [place] [address]- 2546 25 Jun, 2013 [facility] [place] [facility] [address] [id number] [place] [address]- 2549 24 Sep, 2013 [facility] [place] [facility] [address] [id number] [place] [address]- 0526 24 Sep, 2013 [facility] [place] [facility] [address] [id number] [place] [address]- 4855 22 Sep, 2013 [facility] [place] [facility] [address] [id number] [place] [address]- 9096 22 Sep, 2013 [facility] [place] [facility] [address] [id number] [place] [address]- 0380 17 Sep, 2013 [facility] [place] [facility] [address] [id number] [place] [address]- 6410 17 Sep, 2013 [facility] [place] [facility] [address] [id number] [place] [address]- 1278 16 Jun, 2013 [facility] [place] [facility] [address] [id number] [place] [address]- 1359 16 Jun, 2013 [facility] [place] [facility] [address] [id number] [place] [address]- 7975 15 Jun, 2013 [facility] [place] [facility] [address] [id number] [place] [address]- 8999 15 Jun, 2013 [facility] [place] [facility] [address] [id number] [place] [address]- 2000 12 Jun, 2013 [facility] [place] [facility] [address] [id number] [place] [address]- 6216 12 Jun, 2013 [facility] [place] [facility] [address] [id number], [place] [address]- 8932 11 Jun, 2013 [facility] [place] [facility] [address] [id number] [place] [address] 2546 11 Sep, 2013 [facility] [place] [facility] [address] [id number] [place] [address]- 1718 11 Sep, 2013 [facility] [place] [facility] [address] [id number] [place] [address]- 5581 11 Sep, 2013 [facility] [place] [facility] [address] [id number] [place] [address]- 3069 Jun, 2013 [facility] [place] [facility] [address] [id number] [place] [address]- 1416 Jun, [facility] [place] [facility] [address] [id number] [place] [address]- 9666 Jun, [facility] [place] [facility] [address] [id number] [place] [address]- 1048 Jun, [facility] [place] [facility] [address] [id number] [place] [address]- 6079 May, [facility] [place] [facility] [address] [id number] [place] [address]- 0856 May, [facility] [place] [facility] [address] [id number] [place] [address]- 6566 May, [facility] [place] [facility] [address] [id number] [place] [address]- 4649 May, [facility] [place] [facility] [address] [id number] [place] [address]- 7844 May, [facility] [place] [facility] [address] [id number] [place] [address]- 2854 May, [facility] [place] [facility] [address] [id number] [place] [address]- 6800 May, [facility] [place] [facility] [address] [id number] [place] [address]- 1801 May, [facility] [place] [facility] [address] [id number] [place] [address]- 2658 May, [facility] [place] [facility] [address] [id number] [place] [address]- 6283 May, [facility] [place] [facility] [address] [id number] [place] [address]- 2684 May, [facility] [place] [facility] [address] [id number] [place] [address]- 6191 May, [facility] [place] [facility] [address] [id number] [place] [address]- 1961 May, [facility] [place] [facility] [address] [id number] [place] [address]- 8764 Apr, [facility] [place] [facility] [address] [id number] [place] [address]- 3123 Apr, [facility] [place] [facility] [address] [id number] [place] [address]- 5123 Apr, [facility] [place] [facility] [address] [id number] [place] [address]- 4739 Apr, [facility] [place] [facility] [address] [id number] [place] [address]- 4703 Apr, [facility] [place] [facility] [address] [id number] [place] [address]- 2324 Mar, [facility] [place] [facility] [address] [id number] [place] [address]- 7593 Mar, [facility] [place] [facility] [address] [id number] [place] [address]- 0309 Mar, [facility] [place] [facility] [address] [id number] [place] [address]- 8607 February, [facility] [place] [facility] [address] [id number] [place] [address]- 4647 February, [facility] [place] [facility] [address] [id number] [place] [address]- 9220 February, [facility] [place] [facility] [address] [id number] [place] [address]- 9376 February, [facility] [place] [facility] [address] [id number] [id number] [address]28 February, [facility] [place] [facility] [address] [id number] [place] [address]- 7582 February, [facility] [place] [facility] [address] [id number] [place] [address]- 0559 February, [facility] [place] [facility] [address] [id number] [place] [address]- 4759 February, [facility] [place] [facility] [address] [id number] [place] [address] February, [facility] [place] [facility] [address] [id number] [place] [address]- 2823 Jan, [facility] [place] [facility] [address] [id number] [place] [address]- 3197 Jan, [facility] [place] [facility] [address] [id number] [place] [address]- 8872 Jan, [facility] [place] [facility] [address] [id number] [place] [address]- 7236 Jan, [facility] [place] [facility] [address] [id number] [place] [address]- 4444 Jan, [facility] [place] [facility] [address] [id number] [place] [address]- 0611 Dec, [facility] [place] [facility] [address] [id number] [place] [address]- 8407 Dec, [facility] [place] [facility] [address] [id number] [place] [address]- 4853 Dec, [facility] [place] [facility] [address] [id number] [place] [address]- 3108 Dec, [facility] [place] [facility] [address] [id number] [place] [address]- 8150 Dec, [facility] [place] [facility] [address] [id number] [place] [address]- 9441 Nov, [facility] [place] [facility] [address] [id number] [place] [address]- 3725 Nov, [facility] [place] [facility] [address] [id number] [place] [address]- 5993 Nov, [facility] [place] [facility] [address] [id number] [place] [address]- 4904 Nov, [facility] [address] [id number] [place] [address]- 8742 Oct, [facility] [place] [facility] [address] [id number] [place] [address]- 5795 Oct, [facility] [place] [facility] [address] [id number] [place] [address]- 0059 Oct, [facility] [place] [facility] [address] [id number] [place] [address]- 1883 Oct, [facility] [place] [facility] [address] [id number] [place] [address]- 0787 Oct, [facility] [place] [facility] [address] [id number] [place] [address]- 1609 Oct, [facility] [place] [facility] [address] [id number] [place] [address]- 9418 Oct, [facility] [place] [facility] [address] [id number] [place] [address]- 3487 Oct, [facility] [place] [facility] [address] [id number] [place] [address]- 4005 Oct, [facility] [place] [facility] [address] [id number] [place] [address]- 3387 Oct, [facility] [place] [facility] [address] [id number] [place] [address]- 5153 Aug, [facility] [place] [facility] [address] [id number] [place] [address]- 0774 Aug, [facility] [place] [facility] [address] [id number] [place] [address]- 1191 Jul, [facility] [place] [facility] [address] [id number] [place] [address]- 3746 Jul, [facility] [place] [facility] [address] [id number] [place] [address]- 3631 Jul, [facility] [address] [id number] [place] [address]- 3790 09 Jul, 2013 [facility] [place] [facility] [address] [id number] [place] [address]- 7355 Jul, [facility] [place] [facility] [address] [id number] [place] [address]- 2337 Jul, [facility] [place] [facility] [address] [id number] [place] [address]- 3934 Apr, [facility] [place] [facility] [address] [id number] [place] [address]- 1993 Dec, [facility] [place] [facility] [address] [id number] [place] [address]- 4693 Nov, [facility] [place] [facility] [address] [facility] [id number] [place] [address]- 4951 Nov, [facility] [place] [facility] [address] [id number] [place] [address]- 9483 Nov, [facility] [place] [facility] [address] [id number] [place] [address]- 9937 Oct, [facility] [place] [facility] [address] [facility] [id number] [place] [address]- 1819 Sep, [facility] [place] [facility] [address] [id number], [place] [address]- 7810 Sep, [facility] [place] [facility] [address] [id number], [place] [address]- 5071 Sep, [facility] [place] [facility] [address] [id number] [place] [address]- 3902 Sep, [facility] [place] [facility] [address] [id number] [place] [address]- 5664 Aug, [facility] [place] [facility] [address] [facility] [id number] [place] [address]- 6333 Aug, [facility] [place] [facility] [address] [id number] [place] [address]- 7520 12 Jul, 2012 [facility] [place] [facility] [address] [id number] [place] [address]- 2837 12 Jul, 2012 [facility] [place] [facility] [address] [id number] [place] [address]- 8006 28 Jun, 2012 [facility] [place] [facility] [address] [id number] [place] [address]- 0386 26 Jun, 2012 [facility] [place] [facility] [address] [id number] [place] [address] 2549 24 Jun, 2012 [facility] [place] [facility] [address] [id number] [place] [address]- 3170 24 Jun, 2012 [facility] [place] [facility] [address] [id number] [place] [address]- 0714 12 Jun, 2012 [facility] [place] [facility] [address] [id number] [place] [address]- 9392 31 Apr, 2012 [facility] [place] [facility] [address] [id number] [place] [address]- 1112 30 Apr, 2012 [facility] [place] [facility] [address] [id number] [place] [address]- 4508 Apr, [facility] [place] [facility] [address] [id number] [place] [address]- 7216 Mar, [facility] [place] [facility] [address] [id number] [place] [address]- 5335 Mar, [facility] [place] [facility] [address] [id number] [place] [address]- 7455 Mar, [facility] [place] [facility] [address] [id number] [place] [address]- 6906 February, [facility] [place] [facility] [address] [id number] [place] [address]- 4043 Jan, [facility] [place] [facility] [address] [id number] [place] [address]- 6448 Dec, [facility] [place] [facility] [address] [id number] [place] [address]- 3463 Dec, [facility] [place] [facility] [address] [id number] [place] [address]- 1913 Dec, [facility] [place] [facility] [address] [id number] [place] [address]- 0884 Dec, [facility] [place] [facility] [address] [id number] [place] [address]- 7279 Dec, [facility] [place] [facility] [address] [id number] [place] [address]- 2818 14 Nov, 2011 [facility] [place] [facility] [address] [id number] [place] [address]- 0588 Nov, [facility] [place] [facility] [address] [id number] [place] [address]- 0745 Oct, [facility] [place] [facility] [address] [id number] [place] [address]- 8934 Oct, [facility] [place] [facility] [address] [id number] [place] [address]- 6562 Oct, [facility] [address] [id number] [place] [address]- 1570 Sep, [facility] [place] [facility] [address] [id number], [place] [address]- 4283 Aug, [facility] [place] [facility] [address] [id number], [place] [address]- 7004 Aug, [facility] [place] [facility] [address] [id number] [place] [address]- 6193 Jul, [facility] [place] [facility] [address] [id number] [place] [address]- 8936 24 Jul, 2011 [facility] [place] [facility] [address] [id number], [place] [address]- 3758 Jul, [facility] [place] [facility] [address] [id number], [place] [address]- 9371 13 Jan, 2011 [facility] [address] [id number] [place] [address]- 4412 29 Sep, 2010 [facility] [place] [facility] [address] [id number] [place] [address]- 1066 27 Sep, 2010 [facility] [place] [facility] [address] [facility] [id number] [place] [address]- 4716 20 Sep, 2010 [facility] [place] [facility] [address] [id number] [place] [address]- 8856 20 Sep, 2010 [facility] [place] [facility] [address] [facility] [id number] [place] [address]- 7271 06 Sep, 2010 [facility] [place] [facility] [address] [facility] [id number] [place] [address]- 8153 16 Aug, 2010 [facility] [place] [facility] [address] [facility] [id number] [place] [address]- 7440 16 Aug, 2010 [facility] [place] [facility] [address] [facility] [id number] [place] [address]- 7290 08 Aug, 2010 [facility] [place] [facility] [address] [facility] [id number] [place] [address]- 3448 Jul, [facility] [place] [facility] [address] [facility] [id number] [place] [address]- 8818 Jul, [facility] [place] [facility] [address] [facility] [id number], [place] [address] 12 Jul, 2010 [facility] [place] [facility] [address] [facility] [id number], [place] [address] 11 May, 2010 [facility] [place] [facility] [address] [facility] [id number] [place] [address] 13 Apr, 2010 [facility] [place] [facility] [address] [facility] [id number] [place] [address] 18 Dec, 2009 [facility] [place] [facility] [address] [facility] [id number] [place] [address] 17 Sep, 2009 [facility] [place] [facility] [address] [facility] [id number] [place] [address] Sep, [facility] [address] [facility] [id number], [place] [address] Aug, [facility] [address] [facility] [id number], [place] [address] Aug, [facility] [address] [facility] [id number], [place] [address] Jul, [facility] [address] [facility] [id number], [place] [address] Mar, IMMUNIZATIONS No Known Immunizations SOCIAL HISTORY Never Assessed REASON FOR VISIT Controlled Med Refill PLAN OF CARE VITAL SIGNS MEDICATIONS Medication Instructions Dosage Frequency Start Date End Date Duration Status Promethazine HCl 25 MG Orally Once a day 1 tablet as needed 24h 30 Active Robaxin 500 MG Orally 3 times a day 1 tablet 8h 28 Active MS Contin 15 MG Orally every 12 hrs as needed must last 28 days 1 tablet Oct, Active Hydrocodone-Acetaminophen 5-325 MG Orally four times a day as needed for pain. Must last 28 days. 1 tablet Oct, Active RESULTS No Results PROCEDURES No Known [...]
--- OUTSIDE RECORDS SUMMARY | 2018-10-08 20:03 | XMS REPORT ---
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 Name Role Phone JENNY WOLF Unavailable PROBLEMS Type Condition ICD9-CM Code YWM54-PD Code Onset Dates Condition Status SNOMED Code Problem Hypersomnia G47.10 Active 75350861 Problem Hand pain, left M79.642 Active 93384929 Problem Tobacco abuse Z72.0 Active 41161486 Problem Chronic migraine G43.709 Active 05518718 Problem Asthma J45.909 Active 335426394 Problem Calculus of right kidney N20.0 Active 20335363 Problem Spinal stenosis, lumbar region M48.06 Active 51106932 Problem Hand pain, right M79.641 Active 91401756 Problem Heart palpitations R00.2 Active 96415116 Problem Mixed hyperlipidemia E78.2 Active 448231282 Problem Edema of both feet R60.0 Active 029252074 Problem Bulging lumbar disc M51.26 Active 511960662 Problem Radiculopathy of lumbar region M54.16 Active 822110293 Problem Anxiety F41.9 Active 52683628 Problem Essential hypertension I10 Active 84370743 Problem HSV (herpes simplex virus) infection B00.9 Active 10243781 Problem Chronic pain G89.29 Active 29336070 Problem Type 2 diabetes mellitus without complication E11.9 Active 93598365 Problem Snoring R06.83 Active 08354002 Problem Gastroesophageal reflux disease without esophagitis K21.9 Active 813872024 Problem Daytime hypersomnia G47.19 Active [id number] ALLERGIES No Information SOCIAL HISTORY Never Assessed PLAN OF CARE VITAL SIGNS MEDICATIONS Medication Instructions Dosage Frequency Start Date End Date Duration Status Zithromax 500 mg Orally Once a day as directed 24h February, 03 days Active Dicyclomine HCl 10 mg Orally 3 times a day, PRN 1 capsule February, Active Zofran 8 MG Orally every 8 hours, PRN nausea 1 tablet February, Active RESULTS No Results PROCEDURES No Known procedures IMMUNIZATIONS No Known Immunizations MEDICAL (GENERAL) HISTORY Type Description Date Medical [...] History Type 2 diabetes mellitus without complication Surgical History D & C 01/2006 Surgical History EGD & Colonoscopy Sanchez Gastritis 2016 Surgical History Right arm/hand carpal tunnel release- Dr. Ahn 2015 Hospitalization History Surgery(s) only Hospitalization History [facility]-sepsis/ARF 06/2017
--- OUTSIDE RECORDS SUMMARY | 2018-10-08 20:03 | XMS REPORT ---
Author Author JENNY WOLF [facility] Address [address] [place] [address] Care Team Providers Care Busher Helper Name Role Phone JENNY WOLF Unavailable PROBLEMS Type Condition ICD9-CM Code HTU83-KM Code Onset Dates Condition Status SNOMED Code Problem Chronic pain G89.29 Active 09177211 Problem HSV (herpes simplex virus) infection B00.9 Active 70583597 Problem Gastroesophageal reflux disease without esophagitis K21.9 Active 590681458 Problem Type 2 diabetes mellitus with diabetic neuropathy, unspecified E11.40 Active 58408180 Problem roasterman 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 Z79.4 Active 534832648 Problem Edema of both feet R60.0 Active 250159881 Problem Tobacco abuse Z72.0 Active 60247483 Problem Chronic migraine G43.709 Active 46800169 Problem Mixed hyperlipidemia E78.2 Active 819513897 Problem Spinal stenosis, lumbar region M48.06 Active 98584160 Problem Anxiety F41.9 Active 53845481 Problem Radiculopathy of lumbar region M54.16 Active 089469427 Problem Bulging lumbar disc M51.26 Active 443090363 Problem Asthma J45.909 Active 784810264 Problem Essential hypertension I10 Active 96768231 ALLERGIES No Information ENCOUNTERS Encounter Location Date Diagnosis [facility] [id number] [address] Mar, [facility] [address], [place] [address] Mar, [facility] [id number] [place] [address] 56358- 8534 Mar, Chronic pain G89.29 [facility] [id number] [address] February, Chronic pain G89.29 [place] [id number] [place] [address] 77032- 4279 Jan, Chronic pain G89.29 [place] [address] 27101- 2569 Jan, roasterman 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 Z79.4 [place] [address] 90321- 3750 Jan, Encounter for Depo-Provera contraception Z30.42 [place] [address] 34812- 0051 Jan, [place] [address] 05349- 8740 Jan, Chronic pain G89.29 and Anxiety F41.9 [place] [address] 65176- 8702 Jan, [place] [address] 67680- 5503 Dec, [place] [address] 24412- 1767 Dec, Gastroesophageal reflux disease without esophagitis K21.9 and Anxiety F41.9 [place] [address] 20837- 0905 Dec, Essential hypertension I10 ; Mixed hyperlipidemia E78.2 ; Type 2 diabetes mellitus with diabetic neuropathy, unspecified E11.40 ; halfway 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 Z79.4 ; Chronic pain G89.29 ; HSV (herpes simplex virus) infection B00.9 ; Anxiety F41.9 and Gastroesophageal reflux disease without esophagitis K21.9 [place] [address] 85122- 7398 Dec, Chronic pain G89.29 and Chronic migraine G43.709 [place] [address] 66850- 4040 Nov, [place] [id number] [place] [address] 46973- 4585 08 Nov, 2017 Essential hypertension I10 and Chronic pain G89.29 [place] [id number] [place] [address] 84252- 8618 05 Nov, 2017 Chronic pain G89.29 ; Essential hypertension I10 and Type 2 diabetes mellitus without complication E11.9 [place] [address] 69894- 9860 Oct, Chronic pain G89.29 [facility] [facility] [id number] [place] [address] 67772- 1249 Oct, [place] [id number] [place] [address] 78386- 3281 Sep, Type 2 diabetes mellitus without complication E11.9 ; Essential hypertension I10 ; roasterman (current) use of insulin Z79.4 ; Chronic migraine G43.709 ; Chronic pain G89.29 and Acute non-recurrent maxillary sinusitis J01.00 [place] [id number] [place] [address] 36625- 4383 Sep, Encounter for Depo-Provera contraception Z30.42 [place] [id number] [place] [address] 70099- 2032 Sep, Chronic pain G89.29 and Radiculopathy of lumbar region M54.16 [place] [id number] [place] [address] 27102- 5255 Sep, [place] [id number] [place] [address] 25880- 1719 Sep, [place] [address] 38051- 9668 Aug, Type 2 diabetes mellitus without complication E11.9 [place] [id number] [place] [address] 85583- 3716 Aug, [place] [address] 76155- 8726 Aug, Radiculopathy of lumbar region M54.16 and Chronic pain G89.29 [facility] [address], [place] [address] 5166 Aug, Type 2 diabetes mellitus without complication E11.9 [facility] [id number] [address] 9946 Aug, Type 2 diabetes mellitus without complication E11.9 [facility] [address] [facility] [id number] [address] 1105 Jul, Type 2 diabetes mellitus without complication E11.9 [facility] [address] [address] 1992 Jul, [facility] [id number] [address] 8111 Jul, Chronic pain G89.29 [facility] [id number] [address]- 9237 Jul, [facility] [id number] [address] 2021 Jul, [facility] [id number] [address] 3664 Jul, Type 2 diabetes mellitus without complication E11.9 [facility] [address], [place] [address] 5[address] Jul, [facility] [id number] [address]- 3541 Jul, Type 2 diabetes mellitus without complication E11.9 [facility] [address] [facility] [id number] [address] 3715 Jul, [facility] [address] [facility] [id number] [address] 8130 Jul, [facility] [address], [place] [address]- 0107 Jul, [place] [id number] [place] [address] 76882- 1603 Jun, Type 2 diabetes mellitus without complication E11.9 [place] [address] 86255- 5174 Jun, Chronic migraine G43.709 ; Type 2 diabetes mellitus without complication E11.9 ; Calculus of right kidney N20.0 ; Yeast dermatitis B37.2 and HSV (herpes simplex virus) infection B00.9 [place] [address] 79060- 8311 Jun, Type 2 diabetes mellitus without complication E11.9 [place] [address] 61474- 7372 Jun, [place] [address] 25351- 9787 Jun, Radiculopathy of lumbar region M54.16 and Chronic pain G89.29 [place] [id number] [place] [address] 24765- 0386 Jun, Encounter for Depo-Provera contraception Z30.42 [place] [address] 76306- 8489 Jun, Type 2 diabetes mellitus without complication E11.9 [place] [id number] [place] [address] 25713- 1666 Jun, [facility] [id number] [place] [address] 08953 -1397 May, Acute nasopharyngitis (common cold) J00 [place] [address] 31573- 1706 May, Chronic pain G89.29 [place] [address] 45236- 5427 May, Headache following lumbar puncture G97.1 [place] [address] 03067- 8182 May, Radiculopathy of lumbar region M54.16 [place] [id number] [place] [address] 44266- 4255 Apr, [place] [id number] [place] [address] 10327- 9962 Apr, Type 2 diabetes mellitus without complication E11.9 ; Chronic pain G89.29 ; Essential hypertension I10 ; Radiculopathy of lumbar region M54.16 ; Spinal stenosis, lumbar region M48.06 ; Gastroesophageal reflux disease without esophagitis K21.9 ; HSV (herpes simplex virus) infection B00.9 ; Mixed hyperlipidemia E78.2 ; Anxiety F41.9 and Asthma J45.909 [place] [id number] [place] [address] 44602- 0508 Apr, Encounter for Depo-Provera contraception Z30.42 [place] [address] 09279- 3523 Apr, Chronic pain G89.29 and Anxiety F41.9 [place] [id number] [place] [address] 11204- 1866 Mar, [place] [address] 22675- 1114 Mar, [place] [id number] [place] [address] 41327- 3033 Mar, Mixed hyperlipidemia E78.2 [place] [id number] [place] [address] 91286- 0970 Mar, Type 2 diabetes mellitus without complication E11.9 ; Chronic pain G89.29 ; Essential hypertension I10 ; Radiculopathy of lumbar region M54.16 ; Spinal stenosis, lumbar region M48.06 ; Gastroesophageal reflux disease without esophagitis K21.9 ; HSV (herpes simplex virus) infection B00.9 ; Mixed hyperlipidemia E78.2 and Anxiety F41.9 [place] [address] 45438- 0305 Mar, [facility] [address], [place] [address]- 5603 Mar, [facility] [id number] [place] [address] 71057- 3147 Mar, [facility] [id number] [place] [address] 23985- 7539 February, Chronic pain G89.29 [facility] [id number] [place] [address] 78229- 3435 February, [facility] [id number] [place] [address] 95851- 6510 Jan, Chronic pain G89.29 [facility] [id number] [place] [address] 28521- 1182 Jan, Type 2 diabetes mellitus without complication E11.9 [facility] [id number] [place] [address] 15389- 3349 Jan, [facility] [id number] [place] [address] 63813- 1741 Jan, [facility] [id number] [place] [address] 29869- 0288 Jan, [facility] [id number] [place] [address] 65659- 7972 Jan, Type 2 diabetes mellitus without complication [...] J01.00 and Encounter for Depo-Provera contraception Z30.42 [facility] [id number] [place] [address] 26174- 9720 Dec, Chronic pain G89.29 [place] [id number] [place] [address] 85848- 2737 Dec, Abnormal ankle brachial index (BERNARDINO) R68.89 [place] [id number] [place] [address] 99680- 5119 Dec, [address] [id number] [place] [address] 57056- 8203 Dec, Routine gynecological examination Z01.419 ; Chronic [...] virus) infection B00.9 and Allergic rhinitis 477.9 [id number] [place] [address] 28332- 6203 28 Nov, 2016 Chronic pain G89.29 [id number] [place] [address] 53350- 4937 02 Nov, 2016 Chronic pain G89.29 ; [...] mucoid otitis media of both ears H65.113 [id number] [place] [address] 42241- 9788 Oct, [id number] [place] [address] 65288- 9989 Oct, Chronic pain G89.29 [id number] [place] [address] 92686- 2949 Oct, Chronic pain G89.29 [place] [id number] [place] [address] 75598- 0673 Sep, Chronic pain G89.29 ; Type 2 diabetes mellitus without complication E11.9 ; Essential hypertension I10 ; Radiculopathy of lumbar region M54.16 ; Spinal stenosis, lumbar region M48.06 ; Gastroesophageal reflux disease without esophagitis K21.9 ; Encounter for surveillance of injectable contraceptive Z30.42 ; Bilateral cold feet R20.9 ; Pain of left foot M79.672 and Pain in right foot M79.671 [place] [address] 45105- 3344 Sep, [place] [address] 21007- 1885 Aug, [place] [address] 35869- 7250 Aug, [place] [address] 43328- 9402 Aug, Chronic pain G89.29 ; Type 2 diabetes mellitus without complication E11.9 ; Essential hypertension I10 ; Rash and nonspecific skin eruption R21 and Upper respiratory infection, acute J06.9 [place] [address] 33988- 5784 08 Aug, 2016 [place] [address] 26064- 8507 Aug, [place] [address] 08371- 1001 Jul, [address] 80318- 9960 Jul, Dysuria R30.0 ; Encounter for Depo-Provera contraception Z30.42 ; Herpes simplex B00.9 ; Nausea & vomiting R11.2 and Asthma J45.[address] 47174- 2992 21 Jun, 2016 Dysuria R30.0 [facility] [id number] [place] [address] 75629- 9656 19 Jun, 2016 Dysuria R30.0 [facility] [id number] [place] [address] 26879- 0491 15 Jun, 2016 [facility] [id number] [place] [address] 96774- 6379 13 Jun, 2016 [facility] [id number] [place] [address] 28675- 2241 May, [facility] [id number] [place] [address] 41288- 2822 May, [facility] [id number] [place] [address] 91734- 0073 May, Chronic pain G89.29 ; Essential hypertension I10 ; Type 2 diabetes mellitus without complication E11.9 ; Edema of both feet R60.0 and Rash and nonspecific skin eruption R21 [facility] [id number] [place] [address] 36861- 3652 Apr, [facility] [id number] [place] [address] 30538- 8613 Mar, Carpal tunnel syndrome, left upper limb G56.02 and Carpal tunnel syndrome, right upper limb G56.01 [facility] [id number] [place] [address] 30846- 5977 Mar, [facility] [id number] [place] [address] 77856- 7202 Mar, Encounter for Depo-Provera contraception Z30.42 [facility] [id number] [place] [address] 76991- 9341 February, [facility] [id number] [place] [address] 37560- 4966 February, [facility] [address] 54157- 6408 February, Chronic pain G89.29 ; Essential hypertension I10 ; Type 2 diabetes mellitus without complication E11.9 ; HSV (herpes simplex virus) infection B00.9 ; Anxiety F41.9 ; Hypersomnia G47.10 ; Tobacco abuse Z72.0 ; Hand pain, left M79.642 ; Hand pain, right M79.641 ; Left foot pain M79.672 and Heart palpitations R00.2 [place] [address] 34098- 2984 Jan, [place] [address] 06929- 0531 Jan, [place] [address] 04100- 7463 Jan, [place] [address] 38659- 8780 Jan, [place] [address] 80098- 8750 Jan, Upper respiratory infection J06.9 and Type 2 diabetes mellitus without complication E11.9 [place] [address] 12918- 7847 Dec, [address] [address] 12325- 3598 Dec, Chronic pain G89.29 ; Essential hypertension I10 ; Type 2 diabetes mellitus without complication E11.9 ; HSV (herpes simplex virus) infection B00.9 ; Anxiety F41.9 ; Upper respiratory infection J06.9 ; Hypersomnia G47.10 and Tobacco abuse Z72.0 [place] [address] 19232- 4290 Dec, Encounter for Depo-Provera contraception Z30.42 [place] [address] 36511- 4485 02 Dec, 2015 [place] [address] 79984- 1976 Dec, Chronic pain G89.29 ; Sinusitis J32.9 ; Snoring R06.83 and Daytime hypersomnia G47.19 [place] [address] 98038- 7771 Nov, HSV (herpes simplex virus) infection B00.9 ; Encounter for Papanicolaou smear for cervical cancer screening Z12.4 ; Screening for STD sexually transmitted disease Z11.3 and Bartholin's gland cyst N75.0 [place] [address] 24637- 2795 Nov, [place] [address] 74703- 2032 Nov, [place] [address] 14522- 7698 Nov, Essential hypertension I10 ; Type 2 diabetes mellitus without complication E11.9 ; HSV (herpes simplex virus) infection B00.9 ; Spinal stenosis, lumbar region M48.06 and Vaginal yeast infection B37.3 [place] [address] 94367- 4368 Nov, [place] [address] 35334- 0155 Nov, [place] [address] 33569- 7904 Oct, [place] [address] 12901- 9239 Oct, HSV (herpes simplex virus) infection B00.9 ; Yeast infection B37.9 ; Change in bowel habit R19.4 ; Nausea & vomiting R11.2 and Gastroesophageal reflux disease without esophagitis K21.9 [place] [id number] [place] [address] 74363- 0050 Oct, [place] [address] 51295- 8606 Oct, Type 2 diabetes mellitus without complication E11.9 ; Essential hypertension I10 and Acute maxillary sinusitis, recurrence not specified J01.[address] 20649- 5191 Oct, [place] [address] 64842- 7830 Oct, [address] 11600- 6980 Oct, Exposure to head lice Z20.7 ; Blood glucose abnormal R73.09 ; Boil of buttock L02.32 and Type 2 diabetes mellitus without complication E11.[address] 77272- 9264 Oct, [address] 73831- 4579 Sep, [address] 94670- 7674 Sep, [address] 32582- 9749 Aug, Encounter for Depo-Provera contraception Z30.[address] 94649- 0789 Aug, Anxiety F41.9 ; Spinal stenosis, lumbar region M48.06 ; Radiculopathy of lumbar region M54.16 ; Asthma J45.909 ; GERD (gastroesophageal reflux disease) K21.9 ; Essential hypertension I10 and Long-term use of high- risk medication Z79.[address] 16224- 8073 Jul, [address] 82632- 7457 Jun, Hemorrhoid 455.[address] 27967- 8911 Jun, [place] [address] 15702- 2181 Jun, Anxiety 300.00 ; Asthma 493.90 ; Hyperhidrosis 705.21 ; Chest discomfort 786.59 and Upper respiratory infection 465.[address] 46008- 9832 May, Encounter for Depo-Provera contraception V25.[address] 27618- 4509 May, [address] 65198- 6499 May, [address] 90239- 1610 May, Spinal stenosis of lumbar region with radiculopathy 724.02 ; Bulging of intervertebral disc between L4 and L5 722.10 ; GERD ( gastroesophageal reflux disease) 530.81 ; Chronic pain 338.29 ; Declining mobility 799.89 and Epigastric pain 789.[address] 44388- 0561 Apr, [address] 66881- 2184 Apr, Nausea 787.02 and Heart burn 787.[address] 72681- 3556 Mar, Lumbago 724.2 ; Vitamin D deficiency 268.9 ; Anxiety 300.00 ; Allergic rhinitis 477.9 and Contraceptive surveillance V25.[address] 08426- 9343 February, 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 ; Chronic pain 338.29 and Vaginal discharge 623.[address] 03086- 1803 February, [address] [id number] [place] [address]- 4410 February, [facility] [place] [facility] [address] [id number] [place] [address]- 0231 14 Jan, 2015 [facility] [place] [facility] [address] [id number] [place] [address]- 0096 Jan, [facility] [place] [facility] [address] [id number] [place] [address]- 6498 Dec, [facility] [place] [facility] [address] [id number] [place] [address]- 7630 Dec, [facility] [place] [facility] [address] [id number] [place] [address]- 2644 Dec, [facility] [place] [facility] [address] [id number] [place] [address]- 1711 Dec, [facility] [place] [facility] [address] [id number] [place] [address]- 5388 18 Dec, 2014 [facility] [place] [facility] [address] [id number] [place] [address]- 2965 18 Dec, 2014 [facility] [place] [facility] [address] [id number] [place] [address]- 4240 Dec, [facility] [place] [facility] [address] [id number] [place] [address]- 3951 Dec, [facility] [place] [facility] [address] [id number] [place] [address]- 3889 Dec, [facility] [place] [facility] [address] [id number] [place] [address]- 3562 Dec, [facility] [place] [facility] [address] [id number] [place] [address]- 6112 Dec, [facility] [place] [facility] [address] [id number] [place] 7010 Dec, [facility] [place] [facility] [address] [id number] [place] [address]- 8653 27 Nov, 2014 [facility] [place] [facility] [address] [id number] [place] [address]- 2531 27 Nov, 2014 [facility] [place] [facility] [address] [facility] [id number] [place] [address]- 2626 24 Nov, 2014 [facility] [place] [facility] [address] [facility] [id number] [place] [address]- 5366 24 Nov, 2014 [facility] [place] [facility] [address] [facility] [id number] [place] [address]- 8145 23 Nov, 2014 [facility] [place] [facility] [address] [facility] [id number] [place] [address]- 9416 23 Nov, 2014 [facility] [place] [facility] [address] [facility] [id number] [place] [address]- 9327 16 Nov, 2014 [facility] [place] [facility] [address] [facility] [id number] [place] [address]- 5577 16 Nov, 2014 [facility] [place] [facility] [address] [facility] [id number] [place] [address]- 5372 13 Nov, 2014 [facility] [place] [facility] [address] [facility] [id number] [place] [address]- 1592 13 Nov, 2014 [facility] [place] [facility] [address] [facility] [id number] [place] [address]- 8532 13 Nov, 2014 [facility] [place] [facility] [address] [facility] [id number] [place] [address]- 2546 13 Nov, 2014 [facility] [place] [facility] [address] [facility] [id number] [place] [address] 13 Nov, 2014 [facility] [place] [facility] [address] [facility] [id number] [place] [address] 13 Nov, 2014 [facility] [place] [facility] [address] [facility] [id number] [place] [address] 13 Nov, 2014 [facility] [place] [facility] [address] [facility] [id number] [place] [address] 13 Nov, 2014 [facility] [place] [facility] [address] [id number] [place] [address] Nov, 2014 [facility] [place] [facility] [address] [id number] [place] [address] Nov, 2014 [facility] [place] [facility] [address] [id number] [place] [address] Nov, 2014 [facility] [place] [facility] [address] [id number] [place] [address] Nov, 2014 [facility] [place] [facility] [address] [id number] [place] [address] Nov, 2014 [facility] [place] [facility] [address] [id number] [place] [address] Nov, 2014 [facility] [place] [facility] [address] [id number] [place] [address] Nov, [facility] [place] [facility] [address] [id number] [place] [address] Oct, [facility] [place] [facility] [address] [id number] [place] [address] Oct, [facility] [place] [facility] [address] [facility] [id number] [place] [address] Oct, [facility] [place] [facility] [address] [id number] [place] [address] Oct, [facility] [place] [facility] [address] [id number] [place] [address] Oct, [facility] [place] [facility] [address] [id number] [place] [address] Oct, [facility] [place] [facility] [address] [facility] [id number] [place] [address] Oct, [facility] [place] [facility] [address] [facility] [id number] [place] [address] Oct, [facility] [place] [facility] [address] [address] [id number] [place] [address]16 Oct, [facility] [address] [id number] [place] [address] Oct, [facility] [address] [id number] [place] [address] 7749 Oct, [facility] [address] [id number] [place] [address] 8746 Oct, [facility] [address] [id number] [place] [address] 8430 Oct, [facility] [address] [id number] [place] [address] 7980 Oct, [facility] [address] [id number] [place] [address] 2408 Oct, [facility] [address] [id number] [place] [address] 6519 Oct, [facility] [address] [id number] [place] [address] 3141 Oct, [facility] [address] [id number] [place] [address] 8055 Oct, [facility] [address] [id number] [place] [address] 3022 Oct, [facility] [address] [id number] [place] [address] 0372 Oct, [facility] [address] [id number] [place] [address] 2568 Oct, [facility] [place] [facility] [address] [id number] [place] [address] 4980 Sep, [facility] [place] [facility] [address] [id number] [place] [address] [address] Sep, [facility] [address] [id number] [place] [address] 8537 Sep, [facility] [place] [facility] [address] [id number] [place] [address]- 0328 18 Sep, 2014 [facility] [place] [facility] [address] [id number] [place] [address]- 4443 17 Sep, 2014 [facility] [place] [facility] [address] [id number] [place] [address]- 1010 17 Sep, 2014 [facility] [place] [facility] [address] [id number] [place] [address]- 5691 15 Sep, 2014 [facility] [place] [facility] [address] [id number] [place] [address]- 7869 15 Sep, 2014 [facility] [place] [facility] [address] [id number] [place] [address]- 8203 12 Sep, 2014 [facility] [place] [facility] [address] [id number] [place] [address]- 4405 12 Sep, 2014 [facility] [place] [facility] [address] [id number] [place] [address]- 8611 11 Sep, 2014 [facility] [place] [facility] [address] [id number] [place] [address]- 4959 11 Sep, 2014 [facility] [place] [facility] [address] [id number] [place] [address]- 4112 11 Sep, 2014 [facility] [place] [facility] [address] [id number] [place] [address]- 2248 11 Sep, 2014 [facility] [place] [facility] [address] [id number] [place] [address]- 5782 11 Sep, 2014 [facility] [place] [facility] [address] [id number] [place] [address]- 6085 11 Sep, 2014 [facility] [place] [facility] [address] [id number] [place] [address]- 7954 10 Sep, 2014 [facility] [place] [facility] [address] [id number] [place] [address]- 9269 10 Sep, 2014 [facility] [place] [facility] [address] [id number] [address] Sep, [facility] [place] [facility] [address] [id number] [place] [address]- 7680 Sep, [facility] [place] [facility] [address] [id number] [place] [address]- 7809 Aug, [facility] [place] [facility] [address] [id number] [place] [address]- 4680 Aug, [facility] [place] [facility] [address] [id number] [place] [address]- 0176 Aug, [facility] [place] [facility] [address] [id number] [place] [address]- 0384 Aug, [facility] [place] [facility] [address] [id number] [place] [address]- 4510 Aug, [facility] [place] [facility] [address] [id number] [place] [address]- 2593 Aug, [facility] [place] [facility] [address] [id number] [place] [address]- 3743 Aug, [facility] [place] [facility] [address] [id number] [place] [address]- 1051 Aug, [facility] [place] [facility] [address] [id number] [place] [address]- 9322 Aug, [facility] [place] [facility] [address] [id number] [address] 3[address] Jul, [facility] [place] [facility] [address] [id number] [address]- 6835 Jul, [facility] [place] [facility] [address] [id number] [place] [address]- 5850 Jul, [facility] [place] [facility] [address] [id number] [place] [address]- 3791 Jul, [facility] [place] [facility] [address] [id number] [place] [address]- 1736 16 Jul, 2014 [facility] [place] [facility] [address] [id number] [place] [address]- 7026 16 Jul, 2013 [facility] [place] [facility] [address] [id number] [place] [address]- 6020 Jul, [facility] [place] [facility] [address] [id number] [place] [address]- 7556 13 Jul, 2013 [facility] [place] [facility] [address] [id number] [place] [address]- 0069 10 Jul, 2013 [facility] [place] [facility] [address] [id number] [place] [address]- 9515 10 Jul, 2013 [facility] [place] [facility] [address] [id number] [place] [address]- 1839 10 Jul, 2013 [facility] [place] [facility] [address] [id number] [place] [address]- 7652 10 Jul, 2013 [facility] [place] [facility] [address] [id number] [place] [address]- 4122 07 Jul, 2013 [facility] [place] [facility] [address] [id number] [place] [address]- 6305 07 Jul, 2014 [facility] [place] [facility] [address] [id number] [place] [address]- 8569 30 Jun, 2013 [facility] [place] [facility] [address] [id number] [place] [address]- 1083 30 Sep, 2013 [facility] [place] [facility] [address] [id number] [place] [address]- 2548 25 Sep, 2013 [facility] [place] [facility] [address] [id number] [place] [address]- 2546 25 Sep, 2013 [facility] [place] [facility] [address] [id number] [place] [address] 2546 25 Jun, 2013 [facility] [place] [facility] [address] [id number] [place] [address]- 2546 25 Jun, 2013 [facility] [place] [facility] [address] [id number] [place] [address]- 2540 24 Sep, 2013 [facility] [place] [facility] [address] [id number] [place] [address]- 2633 24 Sep, 2013 [facility] [place] [facility] [address] [id number] [place] [address]- 5624 22 Sep, 2013 [facility] [place] [facility] [address] [id number] [place] [address]- 7814 22 Sep, 2013 [facility] [place] [facility] [address] [id number] [place] [address]- 3887 17 Sep, 2013 [facility] [place] [facility] [address] [id number] [place] [address]- 0388 17 Sep, 2013 [facility] [place] [facility] [address] [id number] [place] [address]- 1979 16 Jun, 2013 [facility] [place] [facility] [address] [id number] [place] [address]- 7636 16 Jun, 2013 [facility] [place] [facility] [address] [id number] [place] [address]- 8598 15 Jun, 2013 [facility] [place] [facility] [address] [id number] [place] [address]- 8093 15 Jun, 2013 [facility] [place] [facility] [address] [id number] [place] [address]- 3270 12 Jun, 2013 [facility] [place] [facility] [address] [id number] [place] [address]- 3662 12 Jun, 2013 [facility] [place] [facility] [address] [id number] [address]- 8538 11 Jun, 2013 [facility] [place] [facility] [address] [id number] [place] [address] 2546 11 Sep, 2013 [facility] [place] [facility] [address] [id number] [place] [address]- 1228 11 Sep, 2013 [facility] [place] [facility] [address] [id number] [place] [address]- 4448 11 Sep, 2013 [facility] [place] [facility] [address] [id number] [place] [address]- 1100 Jun, 2013 [facility] [place] [facility] [address] [id number] [place] [address]- 0437 Jun, [facility] [place] [facility] [address] [id number] [place] [address]- 6434 Jun, [facility] [place] [facility] [address] [id number] [place] [address]- 4081 Jun, [facility] [place] [facility] [address] [id number] [place] [address]- 5743 May, [facility] [place] [facility] [address] [id number] [place] [address]- 9566 May, [facility] [place] [facility] [address] [id number] [place] [address]- 8891 May, [facility] [place] [facility] [address] [id number] [place] [address]- 6651 May, [facility] [place] [facility] [address] [id number] [place] [address]- 8989 May, [facility] [place] [facility] [address] [id number] [place] [address]- 4649 May, [facility] [place] [facility] [address] [id number] [place] [address]- 8056 May, [facility] [place] [facility] [address] [id number] [place] [address]- 1267 May, [facility] [place] [facility] [address] [id number] [place] [address]- 4522 May, [facility] [place] [facility] [address] [id number] [place] [address]- 7847 May, [facility] [place] [facility] [address] [id number] [place] [address]- 4135 May, [facility] [place] [facility] [address] [id number] [place] [address]- 3179 May, [facility] [place] [facility] [address] [id number] [place] [address]- 9617 May, [facility] [place] [facility] [address] [id number] [place] [address]- 0291 Apr, [facility] [place] [facility] [address] [id number] [place] [address]- 6719 Apr, [facility] [place] [facility] [address] [id number] [place] [address]- 8780 Apr, [facility] [place] [facility] [address] [id number] [place] [address]- 4971 Apr, [facility] [place] [facility] [address] [id number] [place] [address]- 0989 Apr, [facility] [place] [facility] [address] [id number] [place] [address]- 3629 Mar, [facility] [place] [facility] [address] [id number] [place] [address]- 1338 Mar, [facility] [place] [facility] [address] [id number] [place] [address]- 1495 Mar, [facility] [place] [facility] [address] [id number] [place] [address]- 5605 February, [facility] [place] [facility] [address] [id number] [place] [address]- 8698 February, [facility] [place] [facility] [address] [id number] [place] [address]- 8870 February, [facility] [place] [facility] [address] [id number] [place] [address]- 3323 February, [facility] [place] [facility] [address] [id number] [place] [address] February, [facility] [place] [facility] [address] [id number] [place] [address]- 2593 February, [facility] [place] [facility] [address] [id number] [place] [address]- 1360 February, [facility] [place] [facility] [address] [id number] [place] [address]- 6621 February, [facility] [place] [facility] [address] [id number] [place] [address] February, [facility] [place] [facility] [address] [id number] [place] [address]- 3941 Jan, [facility] [place] [facility] [address] [id number] [place] [address]- 8221 Jan, [facility] [place] [facility] [address] [id number] [place] [address]- 2403 Jan, [facility] [place] [facility] [address] [id number] [place] [address]- 0206 Jan, [facility] [place] [facility] [address] [id number] [place] [address]- 6827 Jan, [facility] [place] [facility] [address] [id number] [place] [address]- 3481 Dec, [facility] [place] [facility] [address] [id number] [place] [address]- 8429 Dec, [facility] [place] [facility] [address] [id number] [place] [address]- 6235 Dec, [facility] [place] [facility] [address] [id number] [place] [address]- 4290 Dec, [facility] [place] [facility] [address] [id number] [place] [address]- 8745 Dec, [facility] [place] [facility] [address] [id number] [place] [address]- 5783 Nov, [facility] [place] [facility] [address] [id number] [place] [address]- 6005 Nov, [facility] [place] [facility] [address] [id number] [place] [address]- 6113 Nov, [facility] [place] [facility] [address] [id number] [place] [address]- 0219 Nov, [facility] [address] [id number] [place] [address]- 6732 Oct, [facility] [place] [facility] [address] [id number] [place] [address]- 0645 Oct, [facility] [place] [facility] [address] [id number] [place] [address]- 1646 Oct, [facility] [place] [facility] [address] [id number] [place] [address]- 4746 Oct, [facility] [place] [facility] [address] [id number] [place] [address]- 0611 Oct, [facility] [place] [facility] [address] [id number] [place] [address]- 3741 Oct, [facility] [place] [facility] [address] [id number] [place] [address]- 7676 Oct, [facility] [place] [facility] [address] [id number] [place] [address]- 4397 Oct, [facility] [place] [facility] [address] [id number] [place] [address]- 3525 Oct, [facility] [place] [facility] [address] [id number] [place] [address]- 3048 Oct, [facility] [place] [facility] [address] [id number] [place] [address]- 5114 Aug, [facility] [place] [facility] [address] [id number] [place] [address]- 9888 Aug, [facility] [place] [facility] [address] [id number] [place] [address]- 4875 Jul, [facility] [place] [facility] [address] [id number] [place] [address]- 7856 Jul, [facility] [place] [facility] [address] [id number] [place] [address]- 6868 Jul, [facility] [address] [id number] [place] [address]- 0532 09 Jul, 2013 [facility] [place] [facility] [address] [id number] [place] [address]- 8113 Jul, [facility] [place] [facility] [address] [id number] [place] [address]- 6179 Jul, [facility] [place] [facility] [address] [id number] [place] [address]- 2382 Apr, [facility] [place] [facility] [address] [id number] [place] [address]- 3782 Dec, [facility] [place] [facility] [address] [id number] [place] [address]- 4709 Nov, [facility] [place] [facility] [address] [facility] [id number] [place] [address]- 7183 Nov, [facility] [place] [facility] [address] [id number] [place] [address]- 4406 Nov, [facility] [place] [facility] [address] [id number] [place] [address]- 5863 Oct, [facility] [place] [facility] [address] [facility] [id number] [place] [address]- 5982 Sep, [facility] [place] [facility] [address] [id number], [place] [address]- 4735 Sep, [facility] [place] [facility] [address] [id number], [place] [address]- 1415 Sep, [facility] [place] [facility] [address] [id number] [place] [address]- 4279 Sep, [facility] [place] [facility] [address] [id number] [place] [address]- 9524 Aug, [facility] [place] [facility] [address] [facility] [id number] [place] [address]- 4650 Aug, [facility] [place] [facility] [address] [id number] [place] [address]- 3172 12 Jul, 2012 [facility] [place] [facility] [address] [id number] [place] [address]- 5651 12 Jul, 2012 [facility] [place] [facility] [address] [id number] [place] [address]- 0116 28 Jun, 2012 [facility] [place] [facility] [address] [id number] [place] [address]- 2266 26 Jun, 2012 [facility] [place] [facility] [address] [id number] [place] [address] 2540 24 Jun, 2012 [facility] [place] [facility] [address] [id number] [place] [address]- 5086 24 Jun, 2012 [facility] [place] [facility] [address] [id number] [place] [address]- 3854 12 Jun, 2012 [facility] [place] [facility] [address] [id number] [place] [address]- 4929 31 Apr, 2012 [facility] [place] [facility] [address] [id number] [place] [address]- 2234 30 Apr, 2012 [facility] [place] [facility] [address] [id number] [place] [address]- 7213 Apr, [facility] [place] [facility] [address] [id number] [place] [address]- 8612 Mar, [facility] [place] [facility] [address] [id number] [place] [address]- 7590 Mar, [facility] [place] [facility] [address] [id number] [place] [address]- 2219 Mar, [facility] [place] [facility] [address] [id number] [place] [address]- 6241 February, [facility] [place] [facility] [address] [id number] [place] [address]- 3467 Jan, [facility] [place] [facility] [address] [id number] [place] [address]- 7897 Dec, [facility] [place] [facility] [address] [id number] [place] [address]- 9877 Dec, [facility] [place] [facility] [address] [id number] [place] [address]- 4310 Dec, [facility] [place] [facility] [address] [id number] [place] [address]- 0117 Dec, [facility] [place] [facility] [address] [id number] [place] [address]- 7841 Dec, [facility] [place] [facility] [address] [id number] [place] [address]- 9805 14 Nov, 2011 [facility] [place] [facility] [address] [id number] [place] [address]- 1698 Nov, [facility] [place] [facility] [address] [id number] [place] [address]- 9055 Oct, [facility] [place] [facility] [address] [id number] [place] [address]- 3619 Oct, [facility] [place] [facility] [address] [id number] [place] [address]- 3719 Oct, [facility] [address] [id number] [place] [address]- 7942 Sep, [facility] [place] [facility] [address] [id number], [place] [address]- 2185 Aug, [facility] [place] [facility] [address] [id number], [place] [address]- 9647 Aug, [facility] [place] [facility] [address] [id number] [place] [address]- 7897 Jul, [facility] [place] [facility] [address] [id number] [place] [address] 24 Jul, 2011 [facility] [place] [facility] [address] [id number], [place] [address] Jul, [facility] [place] [facility] [address] [id number] [address] 13 Jan, 2011 [facility] [address] [id number] [place] [address] 29 Sep, 2010 [facility] [place] [facility] [address] [id number] [place] [address] 27 Sep, 2010 [facility] [place] [facility] [address] [facility] [id number] [place] [address] 20 Sep, 2010 [facility] [place] [facility] [address] [id number] [place] [address] 20 Sep, 2010 [facility] [place] [facility] [address] [facility] [id number] [place] [address] 06 Sep, 2010 [facility] [place] [facility] [address] [facility] [id number] [place] [address] 16 Aug, 2010 [facility] [place] [facility] [address] [facility] [id number] [place] [address] 16 Aug, 2010 [facility] [place] [facility] [address] [facility] [id number] [place] [address] 08 Aug, 2010 [facility] [place] [facility] [address] [facility] [id number] [place] [address] Jul, [facility] [place] [facility] [address] [facility] [id number] [place] [address] Jul, [facility] [place] [facility] [address] [facility] [id number], [place] [address] 12 Jul, 2010 [facility] [place] [facility] [address] [facility] [id number], [place] [address] 11 May, 2010 [facility] [place] [facility] [address] [facility] [id number] [place] [address] 13 Apr, 2010 [facility] [place] [facility] [address] [facility] [id number] [place] [address] 18 Dec, 2009 [facility] [place] [facility] [address] [facility] [id number] [place] [address] 17 Sep, 2009 [facility] [place] [facility] [address] [facility] [id number] [place] [address] Sep, [facility] [address] [facility] [id number], [place] [address] Aug, [facility] [address] [facility] [id number], [place] [address] Aug, [facility] [address] [facility] [id number], [place] [address] Jul, [facility] [address] [facility] [id number][place] [address] Mar, IMMUNIZATIONS Vaccine Route Administration Date Status DEPO PROVERA (150 MG/ML) IM Intramuscular Oct 08, 2017 Administered SOCIAL HISTORY Never Assessed REASON FOR VISIT Depo Provera injection-[facility] PLAN OF CARE VITAL SIGNS MEDICATIONS Unknown Medications RESULTS Name Result Date Reference Range TEST, URINE (IN HOUSE) 2017-10-08 RESULTS negative Lot # [id number] Control + Exp date 01/18/2019 PROCEDURES Procedure Date Ordered Result Body Site URINE TEST Oct 08, 2017 DEPO PROVERA (150 MG/ML) Oct 08, 2017 THER/PROPH/DIAG INJ, SC/IM Oct 08, 2017 INSTRUCTIONS MEDICATIONS ADMINISTERED No Known Medications MEDICAL [...]
--- OUTSIDE RECORDS SUMMARY | 2018-10-08 20:04 | XMS REPORT ---
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 Active 893134063 Problem Edema of both feet R60.0 Active 577771124 Problem Tobacco abuse Z72.0 Active 44140869 Problem Chronic migraine G43.709 Active 21591276 Problem Mixed hyperlipidemia E78.2 Active 785031959 Problem Spinal stenosis, lumbar region M48.06 Active 74180842 Problem Anxiety F41.9 Active 06862410 Problem Radiculopathy of lumbar region M54.16 Active 592561013 Problem Bulging lumbar disc M51.26 Active 583843434 Problem Asthma J45.909 Active 375965580 Problem Essential hypertension I10 Active 34962150 ALLERGIES No Information ENCOUNTERS Encounter Location Date Diagnosis [facility] [id number] [address] Mar, [facility] [id number] [address] Mar, [facility] [address] [address] Mar, Chronic pain G89.29 [facility] [id number] [address] February, Chronic pain G89.29 [facility] [facility] [id number] [place] [address] 88717- 8536 Jan, Chronic pain G89.29 [facility] [facility] [address] 64798- 6004 Jan, 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 [facility] [id number] [place] [address] 79676- 1329 Jan, Encounter for Depo-Provera contraception Z30.42 [place] [address] 08386- 9958 Jan, [place] [address] 50726- 8523 Jan, Chronic pain G89.29 and Anxiety F41.9 [place] [address] 70906- 0087 Jan, [facility] [facility] [address] 73160- 2548 Dec, [facility] [address] 37718- 7667 Dec, Gastroesophageal reflux disease without esophagitis K21.9 and Anxiety F41.9 [facility] [id number] [place] [address] 14091- 9718 Dec, Essential hypertension I10 ; Mixed hyperlipidemia E78.2 ; Type 2 diabetes mellitus with diabetic neuropathy, unspecified E11.40 ; assisted 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 Z79.4 ; Chronic pain G89.29 ; HSV (herpes simplex virus) infection B00.9 ; Anxiety F41.9 and Gastroesophageal reflux disease without esophagitis K21.9 [facility] [address] 23155- 9083 Dec, Chronic pain G89.29 and Chronic migraine G43.709 [facility] [id number] [place] [address] 87880- 5734 Nov, [facility] [id number] [place] [address] 74313- 9009 08 Nov, 2017 Essential hypertension I10 and Chronic pain G89.29 [place] [address] 18721- 5964 05 Nov, 2017 Chronic pain G89.29 ; Essential hypertension I10 and Type 2 diabetes mellitus without complication E11.9 [facility] [address] 45594- 0279 Oct, Chronic pain G89.29 [facility] [facility] [address] 44132- 1497 Oct, [facility] [address] 70975- 9418 Sep, Type 2 diabetes mellitus without complication E11.9 ; Essential hypertension I10 ; rock wool insulator (current) use of insulin Z79.4 ; Chronic migraine G43.709 ; Chronic pain G89.29 and Acute non-recurrent maxillary sinusitis J01.00 [facility] [id number] [place] [address] 72557- 3899 Sep, Encounter for Depo-Provera contraception Z30.42 [facility] [id number] [place] [address] 76771- 9444 Sep, Chronic pain G89.29 and Radiculopathy of lumbar region M54.16 [facility] [id number] [place] [address] 45560- 8067 Sep, [facility] [id number] [place] [address] 73248- 6242 Sep, [facility] [address] 71774- 0956 Aug, Type 2 diabetes mellitus without complication E11.9 [facility] [id number] [place] [address] 57247- 9222 Aug, [place] [address] 59501- 1408 Aug, Radiculopathy of lumbar region M54.16 and Chronic pain G89.29 [facility] [address] [address] 2281 Aug, Type 2 diabetes mellitus without complication E11.9 [facility] [address] [facility] [id number] [address] 7[address] Aug, Type 2 diabetes mellitus without complication E11.9 [facility] [id number] [place] [address] 11094- 8878 Jul, Type 2 diabetes mellitus without complication E11.9 [facility] [id number] [place] [address] 23177- 5736 Jul, [facility] [id number] [place] [address] 04388- 5569 Jul, Chronic pain G89.29 [facility] [id number] [place] [address] 63200- 6048 Jul, [facility] [id number] [place] [address] 98626- 7158 Jul, [facility] [id number] [place] [address] 66585- 9779 Jul, Type 2 diabetes mellitus without complication E11.9 [facility] [address] [address]- 7919 Jul, [facility] [id number] [place] [address] 04265- 7182 Jul, Type 2 diabetes mellitus without complication E11.9 [facility] [id number] [address]- 0970 Jul, [facility] [id number] [address]- 1168 Jul, [facility] [address] [address]- 5823 Jul, [facility] [id number] [place] [address] 66058- 3222 27 Jun, 2017 Type 2 diabetes mellitus without complication E11.9 [facility] [id number] [place] [address] 09342- 8942 26 Jun, 2017 Chronic migraine G43.709 ; Type 2 diabetes mellitus without complication E11.9 ; Calculus of right kidney N20.0 ; Yeast dermatitis B37.2 and HSV (herpes simplex virus) infection B00.9 [facility] [id number] [place] [address] 22550- 8824 Jun, Type 2 diabetes mellitus without complication E11.9 [facility] [facility] [address] 98362- 4313 Jun, [place] [address] 99463- 9163 Jun, Radiculopathy of lumbar region M54.16 and Chronic pain G89.29 [facility] [id number] [place] [address] 36902- 7671 Jun, Encounter for Depo-Provera contraception Z30.42 [facility] [id number] [place] [address] 33513- 3116 Jun, Type 2 diabetes mellitus without complication E11.9 [facility] [id number] [place] [address] 29570- 2098 Jun, [facility] [id number] [place] [address] 84858 -2031 May, Acute nasopharyngitis (common cold) J00 [facility] [id number] [place] [address] 23265- 7410 May, Chronic pain G89.29 [facility] [id number] [place] [address] 18892- 5001 May, Headache following lumbar puncture G97.1 [place] [address] 23636- 3665 May, Radiculopathy of lumbar region M54.16 [place] [id number] [place] [address] 21963- 8535 Apr, [place] [address] 28386- 3158 Apr, Type 2 diabetes mellitus without complication E11.9 ; Chronic pain G89.29 ; Essential hypertension I10 ; Radiculopathy of lumbar region M54.16 ; Spinal stenosis, lumbar region M48.06 ; Gastroesophageal reflux disease without esophagitis K21.9 ; HSV (herpes simplex virus) infection B00.9 ; Mixed hyperlipidemia E78.2 ; Anxiety F41.9 and Asthma J45.909 [place] [address] 73699- 8314 Apr, Encounter for Depo-Provera contraception Z30.42 [place] [address] 47484- 3860 Apr, Chronic pain G89.29 and Anxiety F41.9 [place] [address] 97139- 0475 Mar, [facility] [address] 31626- 7764 Mar, [facility] [id number] [place] [address] 26818- 2486 Mar, Mixed hyperlipidemia E78.2 [place] [address] 49718- 5786 Mar, Type 2 diabetes mellitus without complication E11.9 ; Chronic pain G89.29 ; Essential hypertension I10 ; Radiculopathy of lumbar region M54.16 ; Spinal stenosis, lumbar region M48.06 ; Gastroesophageal reflux disease without esophagitis K21.9 ; HSV (herpes simplex virus) infection B00.9 ; Mixed hyperlipidemia E78.2 and Anxiety F41.9 [place] [address] 22283- 0192 Mar, [facility] [address] [address]- 2487 Mar, [facility] [address] [address]- 5885 Mar, [facility] [address] [address]- 3846 February, Chronic pain G89.29 [facility] [id number] [place] [address] 81593- 4012 February, [facility] [id number] [place] [address] 07621- 5332 Jan, Chronic pain G89.29 [facility] [id number] [place] [address] 26351- 4847 Jan, Type 2 diabetes mellitus without complication E11.9 [facility] [id number] [place] [address] 35421- 3937 Jan, [facility] [id number] [place] [address] 88899- 5235 Jan, [facility] [id number] [place] [address] 09719- 6744 Jan, [facility] [address] [address]- 0601 Jan, Type 2 diabetes mellitus without complication [...] J01.00 and Encounter for Depo-Provera contraception Z30.42 [facility] [address] [address]- 7353 Dec, Chronic pain G89.29 [place] [id number] [place] [address] 08481- 5501 Dec, Abnormal ankle brachial index (BERNARDINO) R68.89 [place] [id number] [place] [address] 89400- 7732 Dec, [place] [id number] [place] [address] 99400- 5214 Dec, Routine gynecological examination Z01.419 ; Chronic [...] virus) infection B00.9 and Allergic rhinitis 477.9 [place] [id number] [place] [address] 68414- 2450 28 Nov, 2016 Chronic pain G89.29 [place] [id number] [place] [address] 74305- 9248 02 Nov, 2016 Chronic pain G89.29 ; [...] mucoid otitis media of both ears H65.113 [place] [id number] [place] [address] 33784- 4639 Oct, [facility] [id number] [place] [address] 44769- 8883 Oct, Chronic pain G89.29 [place] [id number] [place] [address] 48299- 2138 Oct, Chronic pain G89.29 [place] [address] 48571- 3738 Sep, Chronic pain G89.29 ; Type 2 diabetes mellitus without complication E11.9 ; Essential hypertension I10 ; Radiculopathy of lumbar region M54.16 ; Spinal stenosis, lumbar region M48.06 ; Gastroesophageal reflux disease without esophagitis K21.9 ; Encounter for surveillance of injectable contraceptive Z30.42 ; Bilateral cold feet R20.9 ; Pain of left foot M79.672 and Pain in right foot M79.671 [place] [address] 13582- 4454 Sep, [place] [address] 38774- 4372 Aug, [place] [address] 97058- 8670 Aug, [place] [address] 92354- 7588 Aug, Chronic pain G89.29 ; Type 2 diabetes mellitus without complication E11.9 ; Essential hypertension I10 ; Rash and nonspecific skin eruption R21 and Upper respiratory infection, acute J06.9 [place] [address] 38318- 1999 Aug, [place] [address] 95445- 5925 Aug, [place] [address] 72112- 1992 Jul, [address] 17255- 7170 Jul, Dysuria R30.0 ; Encounter for Depo-Provera contraception Z30.42 ; Herpes simplex B00.9 ; Nausea & vomiting R11.2 and Asthma J45.909 [place] [address] 50293- 3035 Jun, Dysuria R30.0 [facility] [id number] [place] [address] 45382- 7532 19 Jun, 2016 Dysuria R30.0 [facility] [id number] [place] [address] 09255- 8360 15 Jun, 2016 [facility] [id number] [place] [address] 88857- 7189 Jun, [facility] [id number] [place] [address] 90800- 5191 May, [facility] [id number] [place] [address] 50726- 6267 May, [facility] [id number] [place] [address] 95189- 0802 May, Chronic pain G89.29 ; Essential hypertension I10 ; Type 2 diabetes mellitus without complication E11.9 ; Edema of both feet R60.0 and Rash and nonspecific skin eruption R21 [facility] [id number] [place] [address] 83747- 1893 Apr, [facility] [id number] [place] [address] 59419- 9520 Mar, Carpal tunnel syndrome, left upper limb G56.02 and Carpal tunnel syndrome, right upper limb G56.01 [facility] [id number] [place] [address] 70906- 3913 Mar, [facility] [id number] [place] [address] 25205- 1638 Mar, Encounter for Depo-Provera contraception Z30.42 [facility] [id number] [place] [address] 29522- 0896 February, [facility] [id number] [place] [address] 54356- 9322 February, [facility] [id number] [place] [address] 94107- 9799 February, Chronic pain G89.29 ; Essential hypertension I10 ; Type 2 diabetes mellitus without complication E11.9 ; HSV (herpes simplex virus) infection B00.9 ; Anxiety F41.9 ; Hypersomnia G47.10 ; Tobacco abuse Z72.0 ; Hand pain, left M79.642 ; Hand pain, right M79.641 ; Left foot pain M79.672 and Heart palpitations R00.2 [place] [address] 10812- 1951 Jan, [place] [address] 65824- 4585 Jan, [place] [address] 85728- 8562 Jan, [place] [address] 12998- 8561 Jan, [place] [address] 61386- 4238 Jan, Upper respiratory infection J06.9 and Type 2 diabetes mellitus without complication E11.[address] 35109- 1299 Dec, [place] [address] 43121- 5314 Dec, Chronic pain G89.29 ; Essential hypertension I10 ; Type 2 diabetes mellitus without complication E11.9 ; HSV (herpes simplex virus) infection B00.9 ; Anxiety F41.9 ; Upper respiratory infection J06.9 ; Hypersomnia G47.10 and Tobacco abuse Z72.[address] 14284- 9080 Dec, Encounter for Depo-Provera contraception Z30.42 [place] [id number] [place] [address] 56961- 8971 Dec, [place] [address] 70473- 8801 Dec, Chronic pain G89.29 ; Sinusitis J32.9 ; Snoring R06.83 and Daytime hypersomnia G47.19 [place] [address] 39970- 9981 Nov, HSV (herpes simplex virus) infection B00.9 ; Encounter for Papanicolaou smear for cervical cancer screening Z12.4 ; Screening for STD sexually transmitted disease Z11.3 and Bartholin's gland cyst N75.0 [place] [address] 77585- 3903 Nov, [place] [address] 99075- 7547 Nov, [place] [address] 10345- 8631 Nov, Essential hypertension I10 ; Type 2 diabetes mellitus without complication E11.9 ; HSV (herpes simplex virus) infection B00.9 ; Spinal stenosis, lumbar region M48.06 and Vaginal yeast infection B37.3 [place] [id number] [place] [address] 88867- 0647 Nov, [facility] [facility] [id number] [place] [address] 81618- 7032 Nov, [facility] [id number] [place] [address] 06987- 6331 Oct, [place] [address] 67342- 7503 Oct, HSV (herpes simplex virus) infection B00.9 ; Yeast infection B37.9 ; Change in bowel habit R19.4 ; Nausea & vomiting R11.2 and Gastroesophageal reflux disease without esophagitis K21.9 [facility] [id number] [place] [address] 65004- 5064 Oct, [facility] [id number] [place] [address] 64751- 0865 Oct, Type 2 diabetes mellitus without complication E11.9 ; Essential hypertension I10 and Acute maxillary sinusitis, recurrence not specified J01.00 [place] [address] 34115- 0435 Oct, [place] [address] 95199- 3241 Oct, [address] 13179- 8869 Oct, Exposure to head lice Z20.7 ; Blood glucose abnormal R73.09 ; Boil of buttock L02.32 and Type 2 diabetes mellitus without complication E11.[address] 53205- 4307 Oct, [address] 22837- 6105 Sep, [address] 05994- 5766 Sep, [place] [address] 00809- 9739 Aug, Encounter for Depo-Provera contraception Z30.[address] 32750- 3078 Aug, Anxiety F41.9 ; Spinal stenosis, lumbar region M48.06 ; Radiculopathy of lumbar region M54.16 ; Asthma J45.909 ; GERD (gastroesophageal reflux disease) K21.9 ; Essential hypertension I10 and Long-term use of high- risk medication Z79.[address] 59349- 8072 Jul, [address] 96875- 7838 10 Jun, [address] 05702- 7357 08 Jun, 2015 [place] [address] [place] [address] 00071- 1100 Jun, Anxiety 300.00 ; Asthma 493.90 ; Hyperhidrosis 705.21 ; Chest discomfort 786.59 and Upper respiratory infection 465.9 [id number] [place] [address] 96897- 1815 May, Encounter for Depo-Provera contraception V25.[address] 87302- 5745 May, [address] 44522- 0771 May, [address] 71689- 6854 May, Spinal stenosis of lumbar region with radiculopathy 724.02 ; Bulging of intervertebral disc between L4 and L5 722.10 ; GERD ( gastroesophageal reflux disease) 530.81 ; Chronic pain 338.29 ; Declining mobility 799.89 and Epigastric pain 789.[address] 12548- 1495 Apr, [address] 63560- 9912 Apr, Nausea 787.02 and Heart burn 787.[address] 09183- 2640 Mar, Lumbago 724.2 ; Vitamin D deficiency 268.9 ; Anxiety 300.00 ; Allergic rhinitis 477.9 and Contraceptive surveillance V25.[address] 21311- 9372 February, 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 ; Chronic pain 338.29 and Vaginal discharge 623.5 [address] [id number] [place] [address] 78432- 7368 February, [place] [id number] [place] [address]- 4971 05 Feb, 2015 [facility] [address] [id number] [place] [address]- 9172 14 Jan, 2015 [facility] [place] [facility] [address] [id number] [place] [address]- 0443 Jan, [facility] [address] [id number] [place] [address]- 1192 Dec, [facility] [place] [facility] [address] [id number] [place] [address]- 6182 Dec, [facility] [place] [facility] [address] [id number] [place] [address]- 3708 Dec, [facility] [place] [facility] [address] [id number] [place] [address]- 0050 Dec, [facility] [place] [facility] [address] [id number] [place] [address]- 8019 Dec, [facility] [place] [facility] [address] [id number] [place] [address]- 5361 18 Dec, 2014 [facility] [place] [facility] [address] [id number] [place] [address]- 4841 Dec, [facility] [place] [facility] [address] [id number] [place] [address]- 2679 Dec, [facility] [place] [facility] [address] [id number] [place] [address]- 0507 Dec, [facility] [place] [facility] [address] [id number] [place] [address]- 5781 Dec, [facility] [place] [facility] [address] [id number] [place] 4736 Dec, [facility] [place] [facility] [address] [id number] [place] [address]- 4096 Dec, [facility] [place] [facility] [address] [id number] [place] [address]- 7681 Nov, [facility] [place] [facility] [address] [id number] [place] [address]- 9478 Nov, 2014 [facility] [place] [facility] [address] [id number] [place] [address]- 5606 24 Nov, 2014 [facility] [place] [facility] [address] [facility] [id number] [place] [address]- 3620 24 Nov, 2014 [facility] [place] [facility] [address] [facility] [id number] [place] [address]- 2820 23 Nov, 2014 [facility] [place] [facility] [address] [id number] [place] [address]- 9294 23 Nov, 2014 [facility] [place] [facility] [address] [facility] [id number] [place] [address]- 1239 16 Nov, 2014 [facility] [place] [facility] [address] [facility] [id number] [place] [address]- 2186 16 Nov, 2014 [facility] [place] [facility] [address] [facility] [id number] [place] [address]- 6155 13 Nov, 2014 [facility] [place] [facility] [address] [facility] [id number] [place] [address]- 0124 13 Nov, 2014 [facility] [place] [facility] [address] [facility] [id number] [place] [address]- 9111 13 Nov, 2014 [facility] [place] [facility] [address] [facility] [id number] [place] [address]- 2676 13 Nov, 2014 [facility] [place] [facility] [address] [facility] [id number] [place] [address]- 2546 13 Nov, 2014 [facility] [place] [facility] [address] [facility] [id number] [place] [address]- 0959 13 Nov, 2014 [facility] [place] [facility] [address] [facility] [id number] [place] [address]- 3066 13 Nov, 2014 [facility] [place] [facility] [address] [facility] [id number] [place] [address]- 8938 13 Nov, 2014 [facility] [place] [facility] [address] [id number] [place] [address]- 4683 Nov, 2014 [facility] [place] [facility] [address] [id number] [place] [address] Nov, 2014 [facility] [place] [facility] [address] [id number] [place] [address] Nov, 2014 [facility] [place] [facility] [address] [id number] [place] [address] Nov, 2014 [facility] [place] [facility] [address] [id number] [place] [address] Nov, 2014 [facility] [place] [facility] [address] [id number] [place] [address] Nov, 2014 [facility] [place] [facility] [address] [id number] [place] [address] Nov, [facility] [place] [facility] [address] [id number] [place] [address] Oct, [facility] [place] [facility] [address] [id number] [place] [address] Oct, [facility] [place] [facility] [address] [id number] [place] [address] Oct, [facility] [place] [facility] [address] [id number] [place] [address] Oct, [facility] [place] [facility] [address] [id number] [place] [address] Oct, [facility] [place] [facility] [address] [id number] [place] [address] Oct, [facility] [place] [facility] [address] [id number] [place] [address] Oct, [facility] [place] [facility] [address] [id number] [place] [address] Oct, [facility] [place] [facility] [address] [id number] [place] [address] Oct, [facility] [place] [facility] [address] [id number] [place] [address] Oct, [facility] [place] [facility] [address] [id number] [place] [address] Oct, [facility] [place] [facility] [address] [id number] [place] [address] Oct, [facility] [place] [facility] [address] [id number] [place] [address] Oct, [facility] [place] [facility] [address] [id number] [place] [address] 1215 Oct, [facility] [place] [facility] [address] [id number] [place] [address]- 0226 Oct, [facility] [place] [facility] [address] [id number] [place] [address]- 2540 Oct, [facility] [place] [facility] [address] [id number] [place] [address]- 4392 Oct, [facility] [place] [facility] [address] [id number] [place] [address]- 2921 Oct, [facility] [place] [facility] [address] [id number] [place] [address]- 7274 Oct, [facility] [place] [facility] [address] [id number] [place] [address]- 1602 Oct, [facility] [place] [facility] [address] [id number] [place] [address]- 6772 Oct, [facility] [place] [facility] [address] [id number] [place] [address]- 0391 Sep, [facility] [place] [facility] [address] [id number] [place] [address]- 4764 Sep, [facility] [place] [facility] [address] [id number] [place] [address]- 6443 Sep, [facility] [place] [facility] [address] [id number] [place] [address]- 0493 18 Sep, 2014 [facility] [place] [facility] [address] [id number] [place] [address]- 0306 17 Sep, 2014 [facility] [place] [facility] [address] [id number] [place] [address]- 0326 17 Sep, 2014 [facility] [place] [facility] [address] [id number] [place] [address]- 0034 15 Sep, 2014 [facility] [place] [facility] [address] [id number] [place] [address]- 6809 15 Sep, 2014 [facility] [place] [facility] [address] [id number] [place] [address]- 2709 12 Sep, 2014 [facility] [place] [facility] [address] [id number] [place] [address]- 2226 12 Sep, 2014 [facility] [place] [facility] [address] [id number] [place] [address]- 7310 11 Sep, 2014 [facility] [place] [facility] [address] [id number] [place] [address]- 4802 11 Sep, 2014 [facility] [place] [facility] [address] [id number] [place] [address]- 0210 11 Sep, 2014 [facility] [place] [facility] [address] [id number] [place] [address]- 5875 11 Sep, 2014 [facility] [place] [facility] [address] [id number] [place] [address]- 3765 11 Sep, 2014 [facility] [place] [facility] [address] [id number] [place] [address]- 3675 11 Sep, 2014 [facility] [place] [facility] [address] [id number] [place] [address]- 1577 10 Sep, 2014 [facility] [place] [facility] [address] [id number] [place] [address]- 1533 10 Sep, 2014 [facility] [place] [facility] [address] [id number] [place] [address]- 0208 Sep, [facility] [place] [facility] [address] [id number] [place] [address]- 8519 Sep, [facility] [place] [facility] [address] [id number] [place] [address]- 4854 Aug, [facility] [place] [facility] [address] [id number] [place] [address]- 0784 Aug, [facility] [place] [facility] [address] [id number] [place] [address]- 4831 Aug, [facility] [place] [facility] [address] [id number] [place] [address]- 6878 Aug, [facility] [place] [facility] [address] [id number] [place] [address]- 6181 Aug, [facility] [place] [facility] [address] [id number] [place] [address]- 2489 Aug, [facility] [place] [facility] [address] [id number] [place] [address]- 5678 Aug, [facility] [place] [facility] [address] [id number] [place] [address]- 7850 Aug, [facility] [place] [facility] [address] [id number] [place] [address]- 6792 Aug, [facility] [place] [facility] [address] [id number] [address]- 3685 Jul, [facility] [place] [facility] [address] [id number][place] [address]- 3997 Jul, [facility] [place] [facility] [address] [id number] [place] [address]- 9364 Jul, [facility] [place] [facility] [address] [id number] [place] [address]- 1679 Jul, [facility] [place] [facility] [address] [id number] [place] [address]- 8676 Jul, [facility] [place] [facility] [address] [id number] [place] [address]- 3142 16 Jul, 2013 [facility] [place] [facility] [address] [id number] [place] [address]- 1132 Jul, [facility] [place] [facility] [address] [id number] [place] [address]- 4526 13 Jul, 2013 [facility] [place] [facility] [address] [id number] [place] [address]- 1234 10 Jul, 2013 [facility] [place] [facility] [address] [id number] [place] [address]- 8104 10 Jul, 2013 [facility] [place] [facility] [address] [id number] [place] [address]- 4038 10 Jul, 2014 [facility] [place] [facility] [address] [id number] [place] [address]- 6254 10 Jul, 2014 [facility] [place] [facility] [address] [id number] [place] [address]- 0159 07 Jul, 2014 [facility] [place] [facility] [address] [id number] [place] [address]- 1241 07 Jul, 2014 [facility] [place] [facility] [address] [id number] [place] [address]- 1945 30 Jun, 2013 [facility] [place] [facility] [address] [id number] [place] [address]- 2541 30 Sep, 2013 [facility] [place] [facility] [address] [id number] [place] [address]- 2546 25 Sep, 2013 [facility] [place] [facility] [address] [id number] [place] [address]- 254 25 Sep, 2013 [facility] [place] [facility] [address] [id number] [place] [address] 2546 25 Sep, 2013 [facility] [place] [facility] [address] [id number] [place] [address]- 2547 25 Sep, 2013 [facility] [place] [facility] [address] [id number] [place] [address]- 3707 24 Sep, 2013 [facility] [place] [facility] [address] [id number] [place] [address]- 9444 24 Sep, 2013 [facility] [place] [facility] [address] [id number] [place] [address]- 9367 22 Sep, 2013 [facility] [place] [facility] [address] [id number] [place] [address]- 1062 22 Sep, 2013 [facility] [place] [facility] [address] [id number] [place] [address] 2543 17 Sep, 2013 [facility] [place] [facility] [address] [id number] [place] [address]- 2896 17 Sep, 2013 [facility] [place] [facility] [address] [id number] [place] [address]- 5850 16 Sep, 2013 [facility] [place] [facility] [address] [id number] [place] [address]- 6046 16 Sep, 2013 [facility] [place] [facility] [address] [id number] [place] [address]- 3814 15 Sep, 2013 [facility] [place] [facility] [address] [id number] [place] [address]- 9540 15 Sep, 2013 [facility] [place] [facility] [address] [id number] [place] [address]- 1832 12 Sep, 2013 [facility] [place] [facility] [address] [id number] [place] [address]- 2046 12 Sep, 2013 [facility] [place] [facility] [address] [id number] [place] [address]- 4180 11 Sep, 2013 [facility] [place] [facility] [address] [id number] [place] [address] 2546 11 Sep, 2013 [facility] [place] [facility] [address] [id number] [place] [address]- 2548 11 Sep, 2013 [facility] [place] [facility] [address] [id number] [place] [address]- 1071 11 Sep, 2013 [facility] [place] [facility] [address] [id number] [place] [address]- 7419 Jun, [facility] [place] [facility] [address] [id number] [place] [address]- 9137 Jun, [facility] [place] [facility] [address] [id number] [place] [address]- 1963 Jun, [facility] [place] [facility] [address] [id number] [place] [address]- 7976 Jun, [facility] [place] [facility] [address] [id number] [place] [address]- 1930 May, [facility] [place] [facility] [address] [id number] [place] [address]- 1735 May, [facility] [place] [facility] [address] [id number] [place] [address]- 1253 May, [facility] [place] [facility] [address] [id number] [place] [address]- 0228 May, [facility] [place] [facility] [address] [id number] [place] [address]- 5529 May, [facility] [place] [facility] [address] [id number] [place] [address]- 8320 May, [facility] [place] [facility] [address] [id number] [place] [address]- 0504 May, [facility] [place] [facility] [address] [id number] [place] [address]- 9220 May, [facility] [place] [facility] [address] [id number] [place] [address]- 4459 May, [facility] [place] [facility] [address] [id number] [place] [address]- 7361 May, [facility] [place] [facility] [address] [id number] [place] [address]- 2158 May, [facility] [place] [facility] [address] [id number] [place] [address]- 7034 May, [facility] [place] [facility] [address] [id number] [place] [address]- 4016 May, [facility] [place] [facility] [address] [id number] [place] [address]- 4425 Apr, [facility] [place] [facility] [address] [id number] [place] [address]- 7826 Apr, [facility] [place] [facility] [address] [id number] [place] [address]- 9176 Apr, [facility] [place] [facility] [address] [id number] [place] [address] 2546 Apr, [facility] [place] [facility] [address] [id number] [place] [address]- 3191 Apr, [facility] [place] [facility] [address] [id number] [place] [address]- 6931 Mar, [facility] [place] [facility] [address] [id number] [place] [address]- 3312 Mar, [facility] [place] [facility] [address] [id number] [place] [address]- 5333 Mar, [facility] [place] [facility] [address] [id number] [place] [address]- 3177 February, [facility] [place] [facility] [address] [id number] [place] [address]- 0059 February, [facility] [place] [facility] [address] [id number] [place] [address]- 9062 February, [facility] [place] [facility] [address] [id number] [place] [address]- 8485 February, [facility] [place] [facility] [address] [id number] [place] [address]- 1488 February, [facility] [place] [facility] [address] [id number] [place] [address]- 4426 February, [facility] [place] [facility] [address] [id number] [place] [address]- 9293 February, [facility] [place] [facility] [address] [id number] [place] [address]- 9657 February, [facility] [place] [facility] [address] [id number] [place] [address]- 9736 February, [facility] [place] [facility] [address] [id number] [place] [address]- 9804 Jan, [facility] [place] [facility] [address] [id number] [place] [address]- 5282 Jan, [facility] [place] [facility] [address] [id number] [place] [address]- 8675 Jan, [facility] [place] [facility] [address] [id number] [place] [address]- 7392 Jan, [facility] [place] [facility] [address] [id number] [place] [address]- 9748 Jan, [facility] [place] [facility] [address] [id number] [place] [address]- 3602 Dec, [facility] [place] [facility] [address] [id number] [place] [address]- 4737 Dec, [facility] [place] [facility] [address] [id number] [place] [address]- 6612 Dec, [facility] [place] [facility] [address] [id number] [place] [address]- 1913 Dec, [facility] [place] [facility] [address] [id number] [address]- 2032 Dec, [facility] [place] [facility] [address] [id number] [place] [address]- 9946 Nov, [facility] [place] [facility] [address] [id number] [place] [address]- 2811 Nov, [facility] [place] [facility] [address] [id number] [place] [address]- 3574 Nov, [facility] [place] [facility] [address] [id number] [place] [address]- 8627 Nov, [facility] [address] [id number] [place] [address]- 6024 Oct, [facility] [place] [facility] [address] [id number] [place] [address]- 7712 Oct, [facility] [address] [id number] [place] [address]- 2718 Oct, [facility] [place] [facility] [address] [id number] [place] [address]- 6354 Oct, [facility] [address] [id number] [place] [address]- 3230 Oct, [facility] [place] [facility] [address] [id number] [place] [address]- 0547 Oct, [facility] [address] [id number] [place] [address]- 1128 Oct, [facility] [address] [id number] [place] [address]- 3688 Oct, [facility] [place] [facility] [address] [id number] [place] [address]- 9460 Oct, [facility] [address] [id number] [place] [address]- 6667 Oct, [facility] [place] [facility] [address] [id number] [place] [address]- 9564 Aug, [facility] [place] [facility] [address] [id number] [place] [address]- 2954 Aug, [facility] [place] [facility] [address] [id number] [place] [address]- 5692 Jul, [facility] [place] [facility] [address] [id number] [place] [address]- 6164 Jul, [facility] [place] [facility] [address] [id number] [place] [address]- 1518 Jul, [facility] [place] [facility] [address] [id number] [place] [address]- 4967 09 Jul, 2013 [facility] [place] [facility] [address] [id number] [place] [address]- 5107 Jul, [facility] [place] [facility] [address] [id number] [place] [address]- 6256 Jul, [facility] [place] [facility] [address] [id number] [place] [address]- 8647 Apr, [facility] [place] [facility] [address] [id number] [place] [address]- 6973 Dec, [facility] [place] [facility] [address] [id number] [place] [address]- 2367 Nov, [facility] [place] [facility] [address] [id number] [place] [address]- 3841 Nov, [facility] [place] [facility] [address] [id number] [place] [address]- 4230 Nov, [facility] [place] [facility] [address] [id number] [place] [address]- 6324 Oct, [facility] [place] [facility] [address] [facility] [id number] [place] [address]- 7950 Sep, [facility] [place] [facility] [address] [id number] [place] [address]- 1690 Sep, [facility] [place] [facility] [address] [id number][place] [address]- 0932 Sep, [facility] [place] [facility] [address] [id number] [place] [address]- 8362 Sep, [facility] [place] [facility] [address] [id number] [place] [address]- 1137 Aug, [facility] [place] [facility] [address] [facility] [id number] [place] [address]- 9520 Aug, [facility] [place] [facility] [address] [id number] [place] [address]- 8622 Jul, [facility] [place] [facility] [address] [id number] [place] [address]- 6234 12 Jul, 2012 [facility] [place] [facility] [address] [id number] [place] [address]- 7944 28 Jun, 2012 [facility] [place] [facility] [address] [id number] [place] [address]- 7106 26 Jun, 2012 [facility] [place] [facility] [address] [id number] [place] [address]- 4686 24 Jun, 2012 [facility] [place] [facility] [address] [id number] [place] [address]- 9295 24 Jun, 2012 [facility] [place] [facility] [address] [id number] [place] [address]- 6969 Jun, [facility] [place] [facility] [address] [id number] [place] [address]- 6727 31 Apr, 2012 [facility] [place] [facility] [address] [id number] [place] [address]- 9392 30 Apr, 2012 [facility] [place] [facility] [address] [id number] [place] [address]- 3781 Apr, [facility] [place] [facility] [address] [id number] [place] [address]- 0687 Mar, [facility] [place] [facility] [address] [id number] [place] [address]- 1187 Mar, [facility] [place] [facility] [address] [id number] [place] [address]- 4675 Mar, [facility] [place] [facility] [address] [id number] [place] [address]- 7587 February, [facility] [place] [facility] [address] [id number] [place] [address]- 4138 Jan, [facility] [place] [facility] [address] [id number] [place] [address]- 8725 Dec, [facility] [place] [facility] [address] [id number] [place] [address]- 0714 Dec, [facility] [place] [facility] [address] [id number] [place] [address]- 5673 20 Dec, 2011 [facility] [place] [facility] [address] [id number] [place] [address]- 2971 19 Dec, 2011 [facility] [place] [facility] [address] [id number] [place] [address]- 3515 Dec, [facility] [place] [facility] [address] [id number] [place] [address]- 3446 14 Nov, 2011 [facility] [place] [facility] [address] [id number] [place] [address]- 9652 Nov, [facility] [place] [facility] [address] [id number] [place] [address]- 1181 Oct, [facility] [place] [facility] [address] [id number] [place] [address]- 5282 Oct, [facility] [place] [facility] [address] [id number] [place] [address]- 0975 Oct, [facility] [place] [facility] [address] [id number] [place] [address]- 9877 Sep, [facility] [place] [facility] [address] [id number] [place] [address]- 4952 Aug, [facility] [place] [facility] [address] [id number] [place] [address]- 1463 Aug, [facility] [place] [facility] [address] [id number] [place] [address]- 0679 28 Jul, 2011 [facility] [place] [facility] [address] [id number] [place] [address]- 4659 24 Jul, 2011 [facility] [place] [facility] [address] [id number] [place] [address]- 2838 19 Jul, 2011 [facility] [place] [facility] [address] [id number][place] [address]- 5246 13 Jan, 2011 [facility] [address] [id number] [place] [address]- 2481 29 Sep, 2010 [facility] [place] [facility] [address] [id number] [place] 7346 27 Sep, 2010 [facility] [place] [facility] [address] [id number] [place] [address]- 8776 Sep, [facility] [place] [facility] [address] [id number] [place] [address]- 3817 Sep, [facility] [place] [facility] [address] [id number] [place] 2109 06 Sep, 2010 [facility] [place] [facility] [address] [id number] [place] [address]- 8732 16 Aug, 2010 [facility] [place] [facility] [address] [id number] [place] [address] 16 Aug, 2010 [facility] [place] [facility] [address] [id number] [place] [address] 08 Aug, 2010 [facility] [place] [facility] [address] [id number] [place] [address] Jul, [facility] [place] [facility] [address] [id number] [place] [address] Jul, [facility] [place] [facility] [address] [id number] [address] Jul, [facility] [place] [facility] [address] [id number][place] [address] 11 May, 2010 [facility] [place] [facility] [address] [id number] [place] [address] 13 Apr, 2010 [facility] [place] [facility] [address] [id number][place] [address] 18 Dec, 2009 [facility] [place] [facility] [address] [id number] [place] [address] 17 Sep, 2009 [facility] [place] [facility] [address] [facility] [id number] [place] [address] Sep, [facility] [address] [facility] [id number][place] [address] Aug, [facility] [address] [facility] [id number][place] [address] Aug, [facility] [address] [facility] [id number][place] [address] Jul, [facility] [address] [facility] [id number][place] [address] Mar, IMMUNIZATIONS No Known Immunizations SOCIAL HISTORY Never Assessed REASON FOR VISIT Controlled Med Refill 10/04 PLAN OF CARE VITAL SIGNS MEDICATIONS Medication Instructions Dosage Frequency Start Date End Date Duration Status Hydrocodone-Acetaminophen 5-325 MG Orally four times a day as needed for pain. Must last 28 days. 1 tablet Sep, Active Lyrica 150 MG Orally Three times a day 1 capsule 8h Active Clorazepate Dipotassium 15 MG Orally 3 times a day prn must last 28 days. 1 tablet 28 Active MS Contin 15 MG Orally every 12 hrs as needed must last 28 days 1 tablet Sep, Active RESULTS No Results PROCEDURES No Known [...]
--- OUTSIDE RECORDS SUMMARY | 2018-10-08 20:05 | XMS REPORT ---
Author Author JENNY WOLF [facility] Address [address] [place] [address] Care Team Providers Care [employer] Name Role Phone JENNY WOLF Unavailable PROBLEMS Type Condition ICD9-CM Code DDT07-IR Code Onset Dates Condition Status SNOMED Code Problem Daytime hypersomnia G47.19 Active 86279091926116 Problem Tobacco abuse Z72.0 Active 92002873 Problem Snoring R06.83 Active 74310495 Problem Mixed hyperlipidemia E78.2 Active 723151657 Problem Edema of both feet R60.0 Active 499048037 Problem Hand pain, left M79.642 Active 96088000 Problem Hypersomnia G47.10 Active 03432474 Problem Hand pain, right M79.641 Active 95275518 Problem Heart palpitations R00.2 Active 45778801 Problem Anxiety F41.9 Active 43922860 Problem Essential hypertension I10 Active 50709700 Problem Spinal stenosis, lumbar region M48.06 Active 14409169 Problem Asthma J45.909 Active 287071391 Problem Type 2 diabetes mellitus without complication E11.9 Active 94093611 Problem Chronic pain G89.29 Active 26197442 Problem Bulging lumbar disc M51.26 Active 806598462 Problem Gastroesophageal reflux disease without esophagitis K21.9 Active 647132996 Problem Radiculopathy of lumbar region M54.16 Active 728444223 Problem HSV (herpes simplex virus) infection B00.9 Active 87515731 ALLERGIES Unknown Allergies SOCIAL HISTORY No smoking Hx information available PLAN OF CARE VITAL SIGNS MEDICATIONS Medication Instructions Dosage Frequency Start Date End Date Duration Status Azithromycin 250 MG Orally Once a day 2 tablets on the first day, then 1 tablet daily for 4 days 24h Oct, 5 Nov, 2016 5 day(s) Active RESULTS No Results PROCEDURES No Known procedures IMMUNIZATIONS No Known Immunizations
--- OUTSIDE RECORDS SUMMARY | 2018-10-08 20:05 | XMS REPORT ---
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 Active 806973405 Problem Edema of both feet R60.0 Active 131620194 Problem Tobacco abuse Z72.0 Active 95933042 Problem Chronic migraine G43.709 Active 48937559 Problem Mixed hyperlipidemia E78.2 Active 234757166 Problem Spinal stenosis, lumbar region M48.06 Active 67910171 Problem Anxiety F41.9 Active 44056593 Problem Radiculopathy of lumbar region M54.16 Active 621221177 Problem Bulging lumbar disc M51.26 Active 261430877 Problem Asthma J45.909 Active 369849325 Problem Essential hypertension I10 Active 93323677 ALLERGIES No Information ENCOUNTERS Encounter Location Date Diagnosis [place] [id number] [place] [address] 26330- 1746 Mar, HSV (herpes simplex virus) infection B00.9 ; Anxiety F41.9 and Chronic pain G89.29 [facility] [address] [place] [id number] [place] [address] 25937- 8284 Mar, [facility] [id number] [place] [address] 62584- 0511 Mar, Chronic pain G89.29 [place] [address] 53890- 2103 February, Chronic pain G89.29 [place] [address] 44222- 9389 Jan, Chronic pain G89.29 [place] [address] 63436- 1039 Jan, [facility] 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 Z79.4 [place] [address] 97435- 8047 Jan, Encounter for Depo-Provera contraception Z30.42 [place] [address] 33207- 1589 Jan, [place] [address] 36595- 9686 Jan, Chronic pain G89.29 and Anxiety F41.9 [place] [address] 23424- 7082 Jan, [place] [address] 78047- 7598 Dec, [place] [address] 51949- 2778 Dec, Gastroesophageal reflux disease without esophagitis K21.9 and Anxiety F41.9 [place] [address] 85257- 4552 Dec, Essential hypertension I10 ; Mixed hyperlipidemia E78.2 ; Type 2 diabetes mellitus with diabetic neuropathy, unspecified E11.40 ; 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 ; Chronic pain G89.29 ; HSV (herpes simplex virus) infection B00.9 ; Anxiety F41.9 and Gastroesophageal reflux disease without esophagitis K21.9 [place] [address] 02996- 5747 07 Dec, 2017 Chronic pain G89.29 and Chronic migraine G43.709 [place] [address] [place] [address] 1384 Nov, [place] [address] [place] [id number] [place] [address] 69719- 4142 Nov, Essential hypertension I10 and Chronic pain G89.29 [place] [address] [place] [id number] [place] [address] 49700- 4278 Nov, Chronic pain G89.29 ; Essential hypertension I10 and Type 2 diabetes mellitus without complication E11.9 [place] [address] 14276- 6242 Oct, Chronic pain G89.29 [place] [address] 13825- 2984 Oct, [place] [address] [place] [id number] [place] [address] 24501- 9979 Sep, Type 2 diabetes mellitus without complication E11.9 ; Essential hypertension I10 ; exterminator (current) use of insulin Z79.4 ; Chronic migraine G43.709 ; Chronic pain G89.29 and Acute non-recurrent maxillary sinusitis J01.00 [place] [address] [place] [id number] [place] [address] 54217- 1953 Sep, Encounter for Depo-Provera contraception Z30.42 [place] [address] [place] [id number] [place] [address] 43998- 0510 Sep, Chronic pain G89.29 and Radiculopathy of lumbar region M54.16 [place] [address] [place] [id number] [place] [address] 92366- 6460 Sep, [place] [address] 65046- 5237 Sep, [place] [address] [place] [id number] [place] [address] 24770- 3806 Aug, Type 2 diabetes mellitus without complication E11.9 [place] [address] [place] [id number] [place] [address] 40897- 5871 Aug, [facility] [address] [facility] [id number] [address] 2546 Aug, Radiculopathy of lumbar region M54.16 and Chronic pain G89.29 [facility] [address] [id number] [address] 2546 Aug, Type 2 diabetes mellitus without complication E11.9 [facility] [address] [id number] [address] 2546 Aug, Type 2 diabetes mellitus without complication E11.9 [facility] [address] [id number] [place] [address]- 0456 Jul, Type 2 diabetes mellitus without complication E11.9 [facility] [address] [facility] [id number] [place] [address]- 7616 Jul, [facility] [address] [facility] [id number] [address]- 2845 Jul, Chronic pain G89.29 [facility] [address] [id number] [place] [address] 2546 Jul, [facility] [address] [facility] [id number] [address]- 8646 Jul, [facility] [address] [facility] [id number] [place] [address]- 7109 Jul, Type 2 diabetes mellitus without complication E11.9 [facility] [address] [facility] [id number] [place] [address]- 6046 Jul, [facility] [address] [facility] [id number] [place] [address]- 2540 Jul, Type 2 diabetes mellitus without complication E11.9 [facility] [address] [facility] [id number] [place] [address] 2546 Jul, [facility] [address] [facility] [id number] [place] [address]- 7956 Jul, [facility] [address] [place] [id number] [place] [address] 72788- 2651 Jul, [place] [address] 42228- 6412 Jun, Type 2 diabetes mellitus without complication E11.9 [facility] [address] [place] [id number] [place] [address] 44859- 6094 Jun, Chronic migraine G43.709 ; Type 2 diabetes mellitus without complication E11.9 ; Calculus of right kidney N20.0 ; Yeast dermatitis B37.2 and HSV (herpes simplex virus) infection B00.9 [place] [address] 60561- 3338 Jun, Type 2 diabetes mellitus without complication E11.9 [place] [address] [place] [id number] [place] [address] 60940- 9246 Jun, [place] [address] 85671- 8682 Jun, Radiculopathy of lumbar region M54.16 and Chronic pain G89.29 [place] [address] [place] [id number] [place] [address] 57747- 3065 Jun, Encounter for Depo-Provera contraception Z30.42 [place] [address] [place] [id number] [place] [address] 62416- 0874 Jun, Type 2 diabetes mellitus without complication E11.9 [place] [address] [place] [id number] [place] [address] 41879- 6738 Jun, [facility] [address] [address] [id number] [place] [address] 00924 -9958 May, Acute nasopharyngitis (common cold) J00 [facility] [address] [place] [id number] [place] [address] 30830- 7180 May, Chronic pain G89.29 [facility] [address] [place] [id number] [place] [address] 92086- 9265 May, Headache following lumbar puncture G97.1 [place] [address] [place] [id number] [place] [address] 18412- 9790 May, Radiculopathy of lumbar region M54.16 [place] [address] [place] [id number] [place] [address] 49981- 1622 Apr, [place] [address] [place] [id number] [place] [address] 34613- 6759 Apr, Type 2 diabetes mellitus without complication E11.9 ; Chronic pain G89.29 ; Essential hypertension I10 ; Radiculopathy of lumbar region M54.16 ; Spinal stenosis, lumbar region M48.06 ; Gastroesophageal reflux disease without esophagitis K21.9 ; HSV (herpes simplex virus) infection B00.9 ; Mixed hyperlipidemia E78.2 ; Anxiety F41.9 and Asthma J45.909 [place] [address] [place] [id number] [place] [address] 25667- 7778 Apr, Encounter for Depo-Provera contraception Z30.42 [place] [address] [place] [id number] [place] [address] 97470- 8310 Apr, Chronic pain G89.29 and Anxiety F41.9 [place] [address] [place] [id number] [place] [address] 85828- 0874 Mar, [place] [address] [place] [id number] [place] [address] 86996- 0282 Mar, [place] [address] [place] [id number] [place] [address] 93338- 2215 Mar, Mixed hyperlipidemia E78.2 [place] [address] [place] [id number] [place] [address] 51190- 2723 Mar, Type 2 diabetes mellitus without complication E11.9 ; Chronic pain G89.29 ; Essential hypertension I10 ; Radiculopathy of lumbar region M54.16 ; Spinal stenosis, lumbar region M48.06 ; Gastroesophageal reflux disease without esophagitis K21.9 ; HSV (herpes simplex virus) infection B00.9 ; Mixed hyperlipidemia E78.2 and Anxiety F41.9 [facility] [address] [address]- 8577 Mar, [facility] [address] [place] [id number] [place] [address] 05139- 0641 Mar, [facility] [address] [place] [id number] [place] [address] 04281- 3336 Mar, [facility] [address] [place] [id number] [place] [address] 08954- 8013 February, Chronic pain G89.29 [facility] [address] [place] [id number] [place] [address] 32106- 3976 February, [facility] [address] [place] [id number] [place] [address] 72385- 6051 Jan, Chronic pain G89.29 [facility] [address] [place] [id number] [place] [address] 37242- 3351 Jan, Type 2 diabetes mellitus without complication E11.9 [facility] [address] [place] [id number] [place] [address] 74180- 0743 Jan, [facility] [address] [place] [id number] [place] [address] 31480- 7655 Jan, [facility] [address] [place] [address] [id number] [place] [address] 27503- 9754 Jan, [facility] [address] [place] [address] [id number] [place] [address] 28091- 8761 Jan, Type 2 diabetes mellitus without complication [...] J01.00 and Encounter for Depo-Provera contraception Z30.42 [place] [address] [place] [id number] [place] [address] 34123- 9402 Dec, Chronic pain G89.29 [place] [address] 74312- 7586 Dec, Abnormal ankle brachial index (BERNARDINO) R68.89 [place] [address] [place] [id number] [place] [address] 52065- 9969 Dec, [place] [address] 25950- 8432 Dec, Routine gynecological examination Z01.419 ; Chronic [...] virus) infection B00.9 and Allergic rhinitis 477.9 [place] [address] [place] [id number] [place] [address] 90585- 7488 28 Nov, 2016 Chronic pain G89.29 [place] [address] 26394- 5560 02 Nov, 2016 Chronic pain G89.29 ; [...] mucoid otitis media of both ears H65.113 [place] [address] [place] [id number] [place] [address] 19832- 1166 Oct, [place] [address] [place] [id number] [place] [address] 81287- 0306 Oct, Chronic pain G89.29 [place] [address] [place] [id number] [place] [address] 55779- 2948 Oct, Chronic pain G89.29 [place] [address] 89739- 2720 Sep, Chronic pain G89.29 ; Type 2 diabetes mellitus without complication E11.9 ; Essential hypertension I10 ; Radiculopathy of lumbar region M54.16 ; Spinal stenosis, lumbar region M48.06 ; Gastroesophageal reflux disease without esophagitis K21.9 ; Encounter for surveillance of injectable contraceptive Z30.42 ; Bilateral cold feet R20.9 ; Pain of left foot M79.672 and Pain in right foot M79.671 [place] [address] 96840- 6258 Sep, [place] [address] 32831- 1712 Aug, [place] [address] 68440- 4650 Aug, [place] [address] 98029- 5504 Aug, Chronic pain G89.29 ; Type 2 diabetes mellitus without complication E11.9 ; Essential hypertension I10 ; Rash and nonspecific skin eruption R21 and Upper respiratory infection, acute J06.9 [place] [address] 05967- 2283 Aug, [place] [address] 12250- 9019 Aug, [place] [address] 31304- 2572 Jul, [address] 74536- 4904 Jul, Dysuria R30.0 ; Encounter for Depo-Provera contraception Z30.42 ; Herpes simplex B00.9 ; Nausea & vomiting R11.2 and Asthma J45.909 [facility] [address] [place] [id number] [place] [address] 99386- 8324 21 Jun, 2016 Dysuria R30.0 [facility] [address] [place] [id number] [place] [address] 78641- 2323 19 Jun, 2016 Dysuria R30.0 [facility] [address] [place] [id number] [place] [address] 74331- 3830 15 Jun, 2016 [facility] [address] [place] [id number] [place] [address] 15694- 9059 13 Jun, 2016 [facility] [address] [id number] [place] [address] 87798- 3490 May, [facility] [address] [place] [id number] [place] [address] 78943- 3097 May, [facility] [address] [place] [id number] [place] [address] 12070- 3163 May, Chronic pain G89.29 ; Essential hypertension I10 ; Type 2 diabetes mellitus without complication E11.9 ; Edema of both feet R60.0 and Rash and nonspecific skin eruption R21 [place] [address] [place] [id number] [place] [address] 03599- 6240 Apr, [facility] [address] [place] [id number] [place] [address] 63717- 4648 Mar, Carpal tunnel syndrome, left upper limb G56.02 and Carpal tunnel syndrome, right upper limb G56.01 [facility] [address] [place] [id number] [place] [address] 40422- 5496 Mar, [facility] [address] [place] [id number] [place] [address] 45571- 7852 Mar, Encounter for Depo-Provera contraception Z30.42 [facility] [address] [place] [id number] [place] [address] 01750- 1952 February, [facility] [address] [place] [id number] [place] [address] 32145- 2775 February, [place] [address] [place] [id number] [place] [address] 66169- 3513 February, Chronic pain G89.29 ; Essential hypertension I10 ; Type 2 diabetes mellitus without complication E11.9 ; HSV (herpes simplex virus) infection B00.9 ; Anxiety F41.9 ; Hypersomnia G47.10 ; Tobacco abuse Z72.0 ; Hand pain, left M79.642 ; Hand pain, right M79.641 ; Left foot pain M79.672 and Heart palpitations R00.2 [place] [address] 48451- 6296 Jan, [place] [address] 12733- 2521 Jan, [place] [address] 53092- 2055 Jan, [place] [address] 54502- 1948 Jan, [place] [address] 82165- 0687 Jan, Upper respiratory infection J06.9 and Type 2 diabetes mellitus without complication E11.9 [place] [address] [place] [id number] [place] [address] 00349- 3589 Dec, [place] [address] 27539- 0088 Dec, Chronic pain G89.29 ; Essential hypertension I10 ; Type 2 diabetes mellitus without complication E11.9 ; HSV (herpes simplex virus) infection B00.9 ; Anxiety F41.9 ; Upper respiratory infection J06.9 ; Hypersomnia G47.10 and Tobacco abuse Z72.0 [place] [address] 19763- 5880 Dec, Encounter for Depo-Provera contraception Z30.42 [place] [address] 43763- 5447 Dec, [place] [address] [place] [id number] [place] [address] 30985- 6111 Dec, Chronic pain G89.29 ; Sinusitis J32.9 ; Snoring R06.83 and Daytime hypersomnia G47.19 [place] [address] [place] [id number] [place] [address] 45625- 2191 Nov, HSV (herpes simplex virus) infection B00.9 ; Encounter for Papanicolaou smear for cervical cancer screening Z12.4 ; Screening for STD sexually transmitted disease Z11.3 and Bartholin's gland cyst N75.0 [place] [address] 14611- 3362 Nov, [place] [address] 33352- 8827 Nov, [place] [address] 12150- 9602 Nov, Essential hypertension I10 ; Type 2 diabetes mellitus without complication E11.9 ; HSV (herpes simplex virus) infection B00.9 ; Spinal stenosis, lumbar region M48.06 and Vaginal yeast infection B37.3 [place] [address] [place] [id number] [place] [address] 86607- 3749 Nov, [place] [address] [place] [id number] [place] [address] 20925- 4802 Nov, [place] [address] [place] [id number] [place] [address] 77756- 9634 Oct, [place] [address] [place] [id number] [place] [address] 51127- 7024 Oct, HSV (herpes simplex virus) infection B00.9 ; Yeast infection B37.9 ; Change in bowel habit R19.4 ; Nausea & vomiting R11.2 and Gastroesophageal reflux disease without esophagitis K21.9 [place] [address] [place] [id number] [place] [address] 97030- 9656 Oct, [address] 65029- 3912 Oct, Type 2 diabetes mellitus without complication E11.9 ; Essential hypertension I10 and Acute maxillary sinusitis, recurrence not specified J01.[address] 66249- 1374 Oct, [address] 73137- 1192 Oct, [address] 01819- 4216 Oct, Exposure to head lice Z20.7 ; Blood glucose abnormal R73.09 ; Boil of buttock L02.32 and Type 2 diabetes mellitus without complication E11.[address] 28202- 3065 Oct, [address] 29442- 3183 Sep, [address] 34521- 0815 Sep, [address] 22505- 2106 Aug, Encounter for Depo-Provera contraception Z30.[address] 58848- 3497 Aug, Anxiety F41.9 ; Spinal stenosis, lumbar region M48.06 ; Radiculopathy of lumbar region M54.16 ; Asthma J45.909 ; GERD (gastroesophageal reflux disease) K21.9 ; Essential hypertension I10 and Long-term use of high- risk medication Z79.[address] 85332- 7162 Jul, [address] 06159- 1349 Jun, Hemorrhoid 455.[address] [id number] [place] [address]- 5691 Jun, [place] [address] 51514- 9745 Jun, Anxiety 300.00 ; Asthma 493.90 ; Hyperhidrosis 705.21 ; Chest discomfort 786.59 and Upper respiratory infection 465.[address] 59069- 5292 May, Encounter for Depo-Provera contraception V25.[address] 14753- 1469 May, [address] 13761- 8983 May, [address] 62207- 6228 May, Spinal stenosis of lumbar region with radiculopathy 724.02 ; Bulging of intervertebral disc between L4 and L5 722.10 ; GERD ( gastroesophageal reflux disease) 530.81 ; Chronic pain 338.29 ; Declining mobility 799.89 and Epigastric pain 789.[address] 86901- 4364 Apr, [address] 99119- 1012 Apr, Nausea 787.02 and Heart burn 787.[address] 39178- 9490 Mar, Lumbago 724.2 ; Vitamin D deficiency 268.9 ; Anxiety 300.00 ; Allergic rhinitis 477.9 and Contraceptive surveillance V25.[address] 54403- 7081 February, 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 ; Chronic pain 338.29 and Vaginal discharge 623.5 [address] [place] [address]- 2810 February, [facility] [place] [facility] [address] [id number] [place] [address]- 9712 February, [facility] [place] [facility] [address] [id number] [place] [address]- 0055 Jan, [facility] [place] [facility] [address] [id number] [place] [address]- 8381 Jan, [facility] [place] [facility] [address] [id number] [place] [address]- 2221 Dec, [facility] [place] [facility] [address] [id number] [place] [address]- 0564 Dec, [facility] [place] [facility] [address] [id number] [place] [address]- 9618 Dec, [facility] [place] [facility] [address] [id number] [place] [address]- 3621 Dec, [facility] [place] [facility] [address] [id number] [place] [address]- 7591 Dec, [facility] [place] [facility] [address] [id number] [place] [address]- 1434 Dec, [facility] [place] [facility] [address] [id number] [place] [address]- 2206 Dec, [facility] [place] [facility] [address] [id number] [place] [address]- 1277 Dec, [facility] [place] [facility] [address] [id number] [place] [address]- 6756 Dec, [facility] [place] [facility] [address] [id number] [place] [address]- 7886 Dec, [facility] [place] [facility] [address] [id number] [place] [address]- 4977 Dec, [facility] [place] [facility] [address] [id number] [place] 7845 Dec, [facility] [place] [facility] [address] [id number] [place] [address] 2549 Nov, 2014 [facility] [place] [facility] [address] [id number] [place] [address] 2546 Nov, 2014 [facility] [place] [facility] [address] [id number] [place] [address] 2546 24 Nov, 2014 [facility] [place] [facility] [address] [id number] [place] [address] 2546 24 Nov, 2014 [facility] [place] [facility] [address] [id number] [place] [address] 2541 Nov, 2014 [facility] [place] [facility] [address] [id number] [place] [address] 2546 23 Nov, 2014 [facility] [place] [facility] [address] [facility] [id number] [place] [address]- 2546 16 Nov, 2014 [facility] [place] [facility] [address] [id number] [place] [address]- 2542 16 Nov, 2014 [facility] [place] [facility] [address] [id number] [place] [address] 13 Nov, 2014 [facility] [place] [facility] [address] [facility] [id number] [place] [address] 13 Nov, 2014 [facility] [place] [facility] [address] [facility] [id number] [place] [address] 13 Nov, 2014 [facility] [place] [facility] [address] [id number] [place] [address] 13 Nov, 2014 [facility] [place] [facility] [address] [id number] [place] [address] 13 Nov, 2014 [facility] [place] [facility] [address] [id number] [place] [address] 13 Nov, 2014 [facility] [place] [facility] [address] [facility] [id number] [place] [address]- [address] 13 Nov, 2014 [facility] [place] [facility] [address] [id number] [place] [address] 13 Nov, 2014 [facility] [place] [facility] [address] [id number] [place] [address] Nov, 2014 [facility] [place] [facility] [address] [id number] [place] [address] Nov, 2014 [facility] [place] [facility] [address] [id number] [place] [address] Nov, 2014 [facility] [place] [facility] [address] [id number] [place] [address] Nov, 2014 [facility] [place] [facility] [address] [id number] [place] [address]- [address] Nov, 2014 [facility] [place] [facility] [address] [facility] [id number] [place] [address]- [address] Nov, 2014 [facility] [place] [facility] [address] [facility] [id number] [place] [address] Nov, 2014 [facility] [place] [facility] [address] [id number] [place] [address] Oct, [facility] [place] [facility] [address] [facility] [id number] [place] [address] Oct, [facility] [place] [facility] [address] [facility] [id number] [place] [address] Oct, [facility] [place] [facility] [address] [id number] [address] Oct, [facility] [place] [facility] [address] [id number] [place] [address] Oct, [facility] [place] [facility] [address] [id number] [place] [address] 6104 Oct, [facility] [place] [facility] [address] [id number] [place] [address] 3538 Oct, [facility] [place] [facility] [address] [id number] [address] 89[address] Oct, [facility] [place] [facility] [address] [id number] [place] [address] 3667 Oct, [facility] [place] [facility] [address] [id number] [place] [address]- 8061 Oct, [facility] [place] [facility] [address] [id number] [place] [address]- 5648 Oct, [facility] [place] [facility] [address] [id number] [place] [address]- 2868 Oct, [facility] [place] [facility] [address] [id number] [place] [address]- 6943 Oct, [facility] [place] [facility] [address] [id number] [place] [address]- 4338 Oct, [facility] [place] [facility] [address] [id number] [place] [address]- 0533 Oct, [facility] [place] [facility] [address] [id number] [place] [address]- 9056 Oct, [facility] [place] [facility] [address] [id number] [place] [address]- 2254 Oct, [facility] [place] [facility] [address] [id number] [place] [address]- 8150 Oct, [facility] [place] [facility] [address] [id number] [place] [address]- 0308 Oct, [facility] [place] [facility] [address] [id number] [place] [address]- 2834 Oct, [facility] [place] [facility] [address] [id number] [place] [address]- 6608 Oct, [facility] [place] [facility] [address] [id number] [place] [address]- 7892 Sep, [facility] [place] [facility] [address] [id number] [place] [address]- 0898 Sep, [facility] [place] [facility] [address] [id number] [place] [address]- 4669 18 Sep, 2014 [facility] [place] [facility] [address] [id number] [place] [address]- 0116 18 Sep, 2014 [facility] [place] [facility] [address] [id number] [place] [address]- 5936 17 Sep, 2014 [facility] [place] [facility] [address] [id number] [place] [address]- 9356 17 Sep, 2014 [facility] [place] [facility] [address] [id number] [place] [address]- 6595 15 Sep, 2014 [facility] [place] [facility] [address] [id number] [place] [address]- 9162 15 Sep, 2014 [facility] [place] [facility] [address] [id number] [place] [address]- 1032 12 Sep, 2014 [facility] [place] [facility] [address] [id number] [place] [address]- 7735 12 Sep, 2014 [facility] [place] [facility] [address] [id number] [place] [address]- 7126 11 Sep, 2014 [facility] [place] [facility] [address] [id number] [place] [address]- 3725 11 Sep, 2014 [facility] [place] [facility] [address] [id number] [place] [address]- 7380 11 Sep, 2014 [facility] [place] [facility] [address] [id number] [place] [address]- 6572 11 Sep, 2014 [facility] [place] [facility] [address] [id number] [place] [address]- 5985 11 Sep, 2014 [facility] [place] [facility] [address] [id number] [place] [address]- 0116 11 Sep, 2014 [facility] [place] [facility] [address] [id number] [place] [address]- 7886 10 Sep, 2014 [facility] [place] [facility] [address] [id number] [place] [address]- 6595 Sep, [facility] [place] [facility] [address] [id number] [place] [address]- 5040 Sep, [facility] [place] [facility] [address] [id number] [place] [address]- 3019 Sep, [facility] [place] [facility] [address] [id number] [place] [address]- 4684 Aug, [facility] [place] [facility] [address] [id number] [place] [address]- 6183 Aug, [facility] [place] [facility] [address] [id number] [place] [address]- 3170 Aug, [facility] [place] [facility] [address] [id number] [place] [address]- 4518 Aug, [facility] [place] [facility] [address] [id number] [place] [address]- 2041 Aug, [facility] [place] [facility] [address] [id number] [place] [address]- 4865 Aug, [facility] [place] [facility] [address] [id number] [place] [address]- 2956 Aug, [facility] [place] [facility] [address] [id number] [place] [address]- 0985 Aug, [facility] [place] [facility] [address] [id number] [place] [address]- 0650 Aug, [facility] [place] [facility] [address] [id number] [address]- 1538 Jul, [facility] [place] [facility] [address] [id number] [place] [address]- 5790 Jul, [facility] [place] [facility] [address] [id number] [place] [address]- 2946 Jul, [facility] [place] [facility] [address] [id number] [place] [address]- 7806 Jul, [facility] [place] [facility] [address] [id number] [place] [address]- 3432 16 Jul, 2013 [facility] [place] [facility] [address] [id number] [place] [address]- 1418 16 Jul, 2013 [facility] [place] [facility] [address] [id number] [place] [address]- 8188 13 Jul, 2013 [facility] [place] [facility] [address] [id number] [place] [address]- 4726 13 Jul, 2013 [facility] [place] [facility] [address] [id number] [place] [address]- 5121 10 Jul, 2013 [facility] [place] [facility] [address] [id number] [place] [address]- 2662 10 Jul, 2013 [facility] [place] [facility] [address] [id number] [place] [address]- 8523 10 Jul, 2013 [facility] [place] [facility] [address] [id number] [place] [address]- 1063 10 Jul, 2013 [facility] [place] [facility] [address] [id number] [place] [address]- 2060 07 Jul, 2013 [facility] [place] [facility] [address] [id number] [place] [address]- 0657 07 Jul, 2013 [facility] [place] [facility] [address] [id number] [place] [address]- 3244 30 Jun, 2013 [facility] [place] [facility] [address] [id number] [place] [address]- 6040 30 Sep, 2013 [facility] [place] [facility] [address] [id number] [place] [address]- 2545 25 Sep, 2013 [facility] [place] [facility] [address] [id number] [place] [address] 2546 25 Sep, 2013 [facility] [place] [facility] [address] [id number] [place] [address]- 2546 25 Jun, 2013 [facility] [place] [facility] [address] [id number] [place] [address]- 6689 25 Jun, 2013 [facility] [place] [facility] [address] [id number] [place] [address]- 8861 24 Sep, 2013 [facility] [place] [facility] [address] [id number] [place] [address] 2546 24 Sep, 2013 [facility] [place] [facility] [address] [id number] [place] [address] 2545 22 Sep, 2013 [facility] [place] [facility] [address] [id number] [place] [address] 2543 22 Sep, 2013 [facility] [place] [facility] [address] [id number] [place] [address] 2541 17 Sep, 2013 [facility] [place] [facility] [address] [id number] [place] [address]- 8274 17 Sep, 2013 [facility] [place] [facility] [address] [id number] [place] [address]- 4951 16 Jun, 2013 [facility] [place] [facility] [address] [id number] [place] [address]- 3532 16 Jun, 2013 [facility] [place] [facility] [address] [id number] [place] [address]- 6902 15 Jun, 2013 [facility] [place] [facility] [address] [id number] [place] [address]- 2540 15 Sep, 2013 [facility] [place] [facility] [address] [id number] [place] [address]- 2919 12 Jun, 2013 [facility] [place] [facility] [address] [id number] [place] [address]- 2548 12 Sep, 2013 [facility] [place] [facility] [address] [id number] [place] [address] 2549 11 Jun, 2013 [facility] [place] [facility] [address] [id number] [place] [address] 2546 11 Sep, 2013 [facility] [place] [facility] [address] [id number] [place] [address]- 2541 11 Sep, 2013 [facility] [place] [facility] [address] [id number] [place] [address]- 8685 Jun, [facility] [place] [facility] [address] [id number] [place] [address]- 3467 Jun, [facility] [place] [facility] [address] [id number] [place] [address]- 5833 Jun, [facility] [place] [facility] [address] [id number] [place] [address]- 0293 Jun, [facility] [place] [facility] [address] [id number] [place] [address]- 1142 Jun, [facility] [place] [facility] [address] [id number] [place] [address]- 5414 May, [facility] [place] [facility] [address] [id number] [place] [address]- 4234 May, [facility] [place] [facility] [address] [id number] [place] [address]- 8796 May, [facility] [place] [facility] [address] [id number] [place] [address]- 1602 May, [facility] [place] [facility] [address] [id number] [place] [address]- 7089 May, [facility] [place] [facility] [address] [id number] [place] [address]- 2110 May, [facility] [place] [facility] [address] [id number] [place] [address]- 8994 May, [facility] [place] [facility] [address] [id number] [place] [address]- 5439 May, [facility] [place] [facility] [address] [id number] [place] [address]- 6893 May, [facility] [place] [facility] [address] [id number] [place] [address]- 7847 May, [facility] [place] [facility] [address] [id number] [place] [address]- 9835 May, [facility] [place] [facility] [address] [id number] [place] [address]- 4116 May, [facility] [address] [id number] [place] [address]- 7927 May, [facility] [place] [facility] [address] [id number] [place] [address]- 5210 Apr, [facility] [place] [facility] [address] [id number] [place] [address]- 8263 Apr, [facility] [place] [facility] [address] [id number] [place] [address]- 0614 Apr, [facility] [place] [facility] [address] [id number] [place] [address]- 2114 Apr, [facility] [place] [facility] [address] [id number] [place] [address]- 5447 Apr, [facility] [address] [id number] [place] [address]- 1132 Mar, [facility] [place] [facility] [address] [id number] [place] [address]- 6858 Mar, [facility] [place] [facility] [address] [id number] [place] [address]- 3592 Mar, [facility] [address] [id number] [place] [address]- 2338 February, [facility] [place] [facility] [address] [id number] [place] [address]- 4298 February, [facility] [place] [facility] [address] [id number] [place] [address]- 0532 February, [facility] [place] [facility] [address] [id number] [place] [address]- 8187 February, [facility] [place] [facility] [address] [id number] [place] [address]- 2301 February, [facility] [place] [facility] [address] [id number] [place] [address]- 0375 February, [facility] [place] [facility] [address] [id number] [place] [address]- 1443 February, [facility] [place] [facility] [address] [id number] [place] [address]- 0899 February, [facility] [place] [facility] [address] [id number] [place] [address]- 1912 February, [facility] [place] [facility] [address] [id number] [place] [address]- 7152 Jan, [facility] [place] [facility] [address] [id number] [place] [address]- 5119 Jan, [facility] [place] [facility] [address] [id number] [place] [address]- 7630 Jan, [facility] [place] [facility] [address] [id number] [place] [address]- 7710 Jan, [facility] [place] [facility] [address] [id number] [place] [address]- 5605 Jan, [facility] [place] [facility] [address] [id number] [place] [address]- 5750 Dec, [facility] [place] [facility] [address] [id number] [place] [address]- 9782 Dec, [facility] [place] [facility] [address] [id number] [place] [address]- 6388 Dec, [facility] [place] [facility] [address] [id number] [place] [address]- 0689 Dec, [facility] [place] [facility] [address] [id number] [place] [address]- 9374 Dec, [facility] [place] [facility] [address] [id number] [place] [address]- 2811 Nov, [facility] [place] [facility] [address] [id number] [place] [address]- 7462 Nov, [facility] [place] [facility] [address] [id number] [address]- 3354 Nov, [facility] [place] [facility] [address] [id number] [place] [address]- 3080 Nov, [facility] [place] [facility] [address] [id number] [place] [address]- 4965 Oct, [facility] [place] [facility] [address] [id number] [place] [address]- 5289 Oct, [facility] [place] [facility] [address] [id number] [place] [address]- 7317 Oct, [facility] [place] [facility] [address] [id number] [place] [address]- 0779 Oct, [facility] [place] [facility] [address] [id number] [place] [address]- 3051 Oct, [facility] [place] [facility] [address] [id number] [place] [address]- 1908 Oct, [facility] [place] [facility] [address] [id number] [place] [address]- 9238 Oct, [facility] [place] [facility] [address] [id number] [place] [address]- 2318 Oct, [facility] [place] [facility] [address] [facility] [id number] [place] [address]- 6689 Oct, [facility] [place] [facility] [address] [id number] [place] [address]- 1777 Oct, [facility] [place] [facility] [address] [id number] [place] [address]- 2176 Aug, [facility] [place] [facility] [address] [id number] [place] [address]- 9928 Aug, [facility] [place] [facility] [address] [facility] [id number] [place] [address]- 1026 Jul, [facility] [place] [facility] [address] [facility] [id number] [place] [address]- 5026 Jul, [facility] [place] [facility] [address] [id number] [place] [address]- 9922 Jul, [facility] [address] [id number] [place] [address]- 7376 Jul, [facility] [place] [facility] [address] [id number] [place] [address]- 9598 Jul, [facility] [place] [facility] [address] [id number] [place] [address]- 3400 Jul, [facility] [place] [facility] [address] [id number] [place] [address]- 4107 Apr, [facility] [place] [facility] [address] [id number] [place] [address]- 4685 Dec, [facility] [address] [id number] [place] [address]- 8633 Nov, [facility] [place] [facility] [address] [id number] [place] [address]- 2193 Nov, [facility] [address] [id number] [place] [address]- 3437 Nov, [facility] [address] [facility] [id number] [place] [address]- 1768 Oct, [facility] [address] [id number] [place] [address]- 8865 Sep, [facility] [place] [facility] [address] [id number] [place] [address]- 4132 Sep, [facility] [place] [facility] [address] [id number] [place] [address]- 1480 Sep, [facility] [place] [facility] [address] [id number] [place] [address]- 8162 Sep, [facility] [place] [facility] [address] [id number] [place] [address]- 8426 Aug, [facility] [place] [facility] [address] [id number] [place] [address]- 4852 Aug, [facility] [place] [facility] [address] [id number] [place] [address]- 0856 Jul, [facility] [place] [facility] [address] [id number] [place] 9406 Jul, [facility] [place] [facility] [address] [id number] [place] [address]- 9866 28 Jun, 2012 [facility] [place] [facility] [address] [id number] [place] [address]- 3651 26 Jun, 2012 [facility] [place] [facility] [address] [id number] [place] [address]- 0496 24 Jun, 2012 [facility] [place] [facility] [address] [id number] [place] [address]- 6788 24 Jun, 2012 [facility] [place] [facility] [address] [id number] [place] [address]- 4504 Jun, [facility] [place] [facility] [address] [id number] [place] [address]- 2191 31 Apr, 2012 [facility] [place] [facility] [address] [id number] [place] [address]- 2605 30 Apr, 2012 [facility] [place] [facility] [address] [id number] [place] [address]- 7936 Apr, [facility] [place] [facility] [address] [id number] [place] [address]- 9519 Mar, [facility] [place] [facility] [address] [id number] [place] [address]- 7663 Mar, [facility] [place] [facility] [address] [id number] [place] [address]- 4811 Mar, [facility] [place] [facility] [address] [id number] [place] 9704 February, [facility] [place] [facility] [address] [id number] [place] [address]- 1351 Jan, [facility] [place] [facility] [address] [id number] [place] [address]- 1432 Dec, [facility] [address] [id number] [place] [address]- 1265 Dec, [facility] [place] [facility] [address] [id number] [place] [address]- 9072 20 Dec, 2011 [facility] [address] [id number] [place] [address]- 4551 19 Dec, 2011 [facility] [place] [facility] [address] [id number] [place] [address]- 7214 Dec, [facility] [address] [id number] [place] [address]- 9175 14 Nov, 2011 [facility] [place] [facility] [address] [id number] [place] [address]- 1539 13 Nov, 2011 [facility] [place] [facility] [address] [id number] [place] [address]- 8211 Oct, [facility] [address] [id number] [place] [address]- 9939 Oct, [facility] [address] [id number] [place] [address]- 4485 Oct, [facility] [address] [id number] [place] [address] Sep, [facility] [place] [facility] [address] [id number] [place] [address] Aug, [facility] [place] [facility] [address] [id number] [place] [address] Aug, [facility] [place] [facility] [address] [id number] [place] [address] Jul, [facility] [place] [facility] [address] [id number] [place] [address] Jul, [facility] [place] [facility] [address] [id number] [place] [address] 19 Jul, 2011 [facility] [place] [facility] [address] [id number] [place] [address] 13 Jan, 2011 [facility] [place] [facility] [address] [id number] [place] [address] 29 Sep, 2010 [facility] [place] [facility] [address] [id number] [place] [address] 27 Sep, 2010 [facility] [place] [facility] [address] [id number] [place] [address] Sep, [facility] [place] [facility] [address] [id number] [place] [address] Sep, [facility] [place] [facility] [address] [id number] [place] [address] 06 Sep, 2010 [facility] [place] [facility] [address] [id number] [place] [address] Aug, [facility] [place] [facility] [address] [id number] [place] [address] 16 Aug, 2010 [facility] [place] [facility] [address] [id number] [place] [address] 08 Aug, 2010 [facility] [place] [facility] [address] [id number] [address] Jul, [facility] [place] [facility] [address] [id number] [place] [address] Jul, [facility] [place] [facility] [address] [id number] [address] Jul, [facility] [place] [facility] [address] [id number] [place] [address] 11 May, 2010 [facility] [place] [facility] [address] [id number] [place] [address] 13 Apr, 2010 [facility] [place] [facility] [address] [id number] [place] [address] 18 Dec, 2009 [facility] [place] [facility] [address] [facility] [id number] [place] [address] Sep, [facility] [address] [id number] [address] Sep, [facility] [address] [id number] [address] Aug, [facility] [address] [id number] [address] Aug, [facility] [address] [id number] [address] Jul, [facility] [address] [id number] [address] Mar, IMMUNIZATIONS No Known Immunizations SOCIAL HISTORY Never Assessed REASON FOR VISIT Med concern PLAN OF CARE VITAL SIGNS MEDICATIONS Unknown [...]
--- OUTSIDE RECORDS SUMMARY | 2018-10-08 20:06 | XMS REPORT ---
Author Author JENNY WOLF 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 714473013 Problem Edema of both feet R60.0 Active 494300472 Problem Tobacco abuse Z72.0 Active 35193875 Problem Chronic migraine G43.709 Active 16697057 Problem Mixed hyperlipidemia E78.2 Active 082902381 Problem Spinal stenosis, lumbar region M48.06 Active 10780157 Problem Anxiety F41.9 Active 94503096 Problem Radiculopathy of lumbar region M54.16 Active 539838394 Problem Bulging lumbar disc M51.26 Active 190606806 Problem Asthma J45.909 Active 109877228 Problem Essential hypertension I10 Active 26259275 ALLERGIES No Information ENCOUNTERS Encounter Location Date Diagnosis [facility] [id number], [place] [address] Mar, [facility] [id number], [place] [address] 3934 February, Chronic pain G89.29 [facility] [address], [place] [address] Jan, Chronic pain G89.29 [facility] [id number], [place] [address] 4937 Jan, 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 [facility] [facility] [id number] [place] [address] 48356- 4898 Jan, Encounter for Depo-Provera contraception Z30.42 [facility] [id number] [place] [address] 29272- 5693 Jan, [place] [address] 06054- 5212 Jan, Chronic pain G89.29 and Anxiety F41.9 [address] [address] 13717- 0539 Jan, [place] [address] 70294- 0806 Dec, [place] [address] 12101- 4261 Dec, Gastroesophageal reflux disease without esophagitis K21.9 and Anxiety F41.9 [facility] [place] [id number] [place] [address] 78844- 9065 Dec, Essential hypertension I10 ; Mixed hyperlipidemia E78.2 ; Type 2 diabetes mellitus with diabetic neuropathy, unspecified E11.40 ; jail 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 Z79.4 ; Chronic pain G89.29 ; HSV (herpes simplex virus) infection B00.9 ; Anxiety F41.9 and Gastroesophageal reflux disease without esophagitis K21.9 [place] [id number] [place] [address] 71116- 2859 Dec, Chronic pain G89.29 and Chronic migraine G43.709 [facility] [id number] [place] [address] 38900- 6497 Nov, [facility] [id number] [place] [address] 26421- 8340 Nov, Essential hypertension I10 and Chronic pain G89.29 [place] [address] 04607- 8779 Nov, Chronic pain G89.29 ; Essential hypertension I10 and Type 2 diabetes mellitus without complication E11.9 [facility] [id number] [place] [address] 90102- 8897 Oct, Chronic pain G89.29 [facility] [id number] [place] [address] 05152- 9970 Oct, [place] [address] 39117- 9763 Sep, Type 2 diabetes mellitus without complication E11.9 ; Essential hypertension I10 ; remote computer terminal operator (current) use of insulin Z79.4 ; Chronic migraine G43.709 ; Chronic pain G89.29 and Acute non-recurrent maxillary sinusitis J01.00 [facility] [id number] [place] [address] 11198- 2330 Sep, Encounter for Depo-Provera contraception Z30.42 [facility] [id number] [place] [address] 17181- 9401 Sep, Chronic pain G89.29 and Radiculopathy of lumbar region M54.16 [facility] [id number] [place] [address] 64213- 7439 Sep, [facility] [id number] [place] [address] 92634- 8008 Sep, [facility] [id number] [place] [address] 96598- 1438 Aug, Type 2 diabetes mellitus without complication E11.9 [facility] [place] [id number] [place] [address] 23117- 4919 Aug, [facility] [id number] [place] [address] 18475- 4377 Aug, Radiculopathy of lumbar region M54.16 and Chronic pain G89.29 [facility] [place] [id number] [place] [address] 57062- 8339 Aug, Type 2 diabetes mellitus without complication E11.9 [facility] [address] [facility] [id number] [address] 5320 Aug, Type 2 diabetes mellitus without complication E11.9 [facility] [id number] [place] [address] 79279- 1656 Jul, Type 2 diabetes mellitus without complication E11.9 [facility] [id number] [place] [address] 96573- 3946 Jul, [facility] [id number] [place] [address] 83707 2541 Jul, Chronic pain G89.29 [facility] [id number] [place] [address] 43682- 5886 Jul, [facility] [id number] [place] [address] 98817- 7052 Jul, [facility] [id number] [place] [address] 02538- 9781 Jul, Type 2 diabetes mellitus without complication E11.9 [facility] [address], [place] [address]- 9452 Jul, [facility] [id number] [place] [address] 84631- 0660 Jul, Type 2 diabetes mellitus without complication E11.9 [facility] [address], [place] [address]- 4608 Jul, [facility] [address], [place] [address]- 2545 Jul, [facility] [id number] [place] [address] 96507- 7300 Jul, [facility] [address] [place] [address] 01986- 8738 Jun, Type 2 diabetes mellitus without complication E11.9 [facility] [address], [place] [address]- 6712 Jun, Chronic migraine G43.709 ; Type 2 diabetes mellitus without complication E11.9 ; Calculus of right kidney N20.0 ; Yeast dermatitis B37.2 and HSV (herpes simplex virus) infection B00.9 [place] [id number] [place] [address] 31315- 5356 Jun, Type 2 diabetes mellitus without complication E11.9 [place] [address] 69753- 6046 Jun, [place] [address] 08365- 3161 Jun, Radiculopathy of lumbar region M54.16 and Chronic pain G89.29 [place] [address] 19062- 0070 Jun, Encounter for Depo-Provera contraception Z30.42 [place] [address] 62765- 7076 Jun, Type 2 diabetes mellitus without complication E11.9 [facility] [id number] [place] [address] 26585- 3362 Jun, [facility] [id number] [place] [address] 09858 -0314 May, Acute nasopharyngitis (common cold) J00 [place] [id number] [place] [address] 24771- 0201 May, Chronic pain G89.29 [place] [address] 94258- 9577 May, Headache following lumbar puncture G97.1 [place] [address] 25729- 8691 May, Radiculopathy of lumbar region M54.16 [place] [address] 89920- 8085 Apr, [place] [address] 33682- 4294 Apr, Type 2 diabetes mellitus without complication E11.9 ; Chronic pain G89.29 ; Essential hypertension I10 ; Radiculopathy of lumbar region M54.16 ; Spinal stenosis, lumbar region M48.06 ; Gastroesophageal reflux disease without esophagitis K21.9 ; HSV (herpes simplex virus) infection B00.9 ; Mixed hyperlipidemia E78.2 ; Anxiety F41.9 and Asthma J45.[address] 61578- 1349 Apr, Encounter for Depo-Provera contraception Z30.[address] 930206- 5810 Apr, Chronic pain G89.29 and Anxiety F41.[address] 17163- 1223 Mar, [address] 57739- 5218 Mar, [address] 75443- 0429 Mar, Mixed hyperlipidemia E78.[address] 48338- 9588 Mar, Type 2 diabetes mellitus without complication E11.9 ; Chronic pain G89.29 ; Essential hypertension I10 ; Radiculopathy of lumbar region M54.16 ; Spinal stenosis, lumbar region M48.06 ; Gastroesophageal reflux disease without esophagitis K21.9 ; HSV (herpes simplex virus) infection B00.9 ; Mixed hyperlipidemia E78.2 and Anxiety F41.[address] 69453- 6387 Mar, [address] 97557- 3651 Mar, [address] 62112- 9741 Mar, [facility] [address], [place] [address]- 3136 February, Chronic pain G89.29 [facility] [id number] [place] [address] 57119- 4960 February, [facility] [id number] [place] [address] 06565- 3264 Jan, Chronic pain G89.29 [facility] [id number] [place] [address] 22953- 7782 Jan, Type 2 diabetes mellitus without complication E11.9 [place] [id number] [place] [address] 40838- 7580 Jan, [facility] [id number] [place] [address] 49224- 8798 Jan, [facility] [id number] [place] [address] 45437- 0687 Jan, [facility] [id number] [place] [address] 64282- 6496 Jan, Type 2 diabetes mellitus without complication [...] J01.00 and Encounter for Depo-Provera contraception Z30.42 [facility] [address] [place] [address] 05438- 1947 Dec, Chronic pain G89.29 [facility] [address] [place] [address] 59316- 4595 Dec, Abnormal ankle brachial index (BERNARDINO) R68.89 [facility] [id number] [place] [address] 37385- 1666 Dec, [place] [address] [place] [address] 05884- 3059 Dec, Routine gynecological examination Z01.419 ; Chronic [...] B00.9 and Allergic rhinitis 477.9 [address] [id number] [place] [address] 94895- 1368 Nov, Chronic pain G89.29 [place] [address] [place] [address] 36138- 7293 02 Nov, 2016 Chronic pain G89.29 ; [...] mucoid otitis media of both ears H65.113 [address] [address] [place] [address] 07801- 6358 Oct, [address] [address] [place] [address] 25362- 6296 Oct, Chronic pain G89.29 [facility] [id number] [place] [address] 26074- 1949 Oct, Chronic pain G89.29 [address] [address] [place] [address] 65293- 2813 Sep, Chronic pain G89.29 ; Type 2 diabetes mellitus without complication E11.9 ; Essential hypertension I10 ; Radiculopathy of lumbar region M54.16 ; Spinal stenosis, lumbar region M48.06 ; Gastroesophageal reflux disease without esophagitis K21.9 ; Encounter for surveillance of injectable contraceptive Z30.42 ; Bilateral cold feet R20.9 ; Pain of left foot M79.672 and Pain in right foot M79.671 [place] [id number] [place] [address] 85497- 4529 Sep, [place] [address] 47560- 6747 Aug, [address] [address] 95827- 2055 Aug, [address] [address] 96357- 9081 Aug, Chronic pain G89.29 ; Type 2 diabetes mellitus without complication E11.9 ; Essential hypertension I10 ; Rash and nonspecific skin eruption R21 and Upper respiratory infection, acute J06.9 [address] [address] 85860- 5080 Aug, [address] [address] 80147- 0708 Aug, [place] [address] 10745- 4809 Jul, [place] [address] 32364- 1922 Jul, Dysuria R30.0 ; Encounter for Depo-Provera contraception Z30.42 ; Herpes simplex B00.9 ; Nausea & vomiting R11.2 and Asthma J45.909 [address] [address] 42825- 1068 Jun, Dysuria R30.0 [address] [address] 98212- 9998 Jun, Dysuria R30.0 [place] [address] 20704- 7796 15 Jun, 2016 [place] [address] [place] [address] 48177- 0855 Jun, [facility] [id number] [place] [address] 81152- 6686 May, [facility] [id number] [place] [address] 77228- 3256 May, [facility] [id number] [place] [address] 96839- 3282 May, Chronic pain G89.29 ; Essential hypertension I10 ; Type 2 diabetes mellitus without complication E11.9 ; Edema of both feet R60.0 and Rash and nonspecific skin eruption R21 [place] [id number] [place] [address] 89932- 7605 Apr, [facility] [id number] [place] [address] 13781- 1187 Mar, Carpal tunnel syndrome, left upper limb G56.02 and Carpal tunnel syndrome, right upper limb G56.01 [place] [id number] [place] [address] 03949- 9607 Mar, [facility] [id number] [place] [address] 61998- 4882 Mar, Encounter for Depo-Provera contraception Z30.42 [place] [id number] [place] [address] 37612- 6518 February, [facility] [id number] [place] [address] 40222- 1490 February, [facility] [id number] [place] [address] 70864- 8356 February, Chronic pain G89.29 ; Essential hypertension I10 ; Type 2 diabetes mellitus without complication E11.9 ; HSV (herpes simplex virus) infection B00.9 ; Anxiety F41.9 ; Hypersomnia G47.10 ; Tobacco abuse Z72.0 ; Hand pain, left M79.642 ; Hand pain, right M79.641 ; Left foot pain M79.672 and Heart palpitations R00.[address] 21174- 9439 Jan, [place] [address] 07952- 9349 Jan, [place] [address] 48553- 2804 Jan, [address] [address] 79550- 3662 Jan, [address] 91964- 9373 Jan, Upper respiratory infection J06.9 and Type 2 diabetes mellitus without complication E11.[address] 23170- 7418 Dec, [address] 80842- 9084 Dec, Chronic pain G89.29 ; Essential hypertension I10 ; Type 2 diabetes mellitus without complication E11.9 ; HSV (herpes simplex virus) infection B00.9 ; Anxiety F41.9 ; Upper respiratory infection J06.9 ; Hypersomnia G47.10 and Tobacco abuse Z72.0 [address] [address] [id number] [place] [address] 31633- 4812 Dec, Encounter for Depo-Provera contraception Z30.42 [address] [id number] [place] [address] 04266- 5554 Dec, [address] 44156- 0106 Dec, Chronic pain G89.29 ; Sinusitis J32.9 ; Snoring R06.83 and Daytime hypersomnia G47.[address] 97141- 5877 Nov, HSV (herpes simplex virus) infection B00.9 ; Encounter for Papanicolaou smear for cervical cancer screening Z12.4 ; Screening for STD sexually transmitted disease Z11.3 and Bartholin's gland cyst N75.0 [place] [id number] [place] [address] 44073- 4610 Nov, [place] [id number] [place] [address] 22029- 4090 Nov, [place] [id number] [place] [address] 82638- 0143 Nov, Essential hypertension I10 ; Type 2 diabetes mellitus without complication E11.9 ; HSV (herpes simplex virus) infection B00.9 ; Spinal stenosis, lumbar region M48.06 and Vaginal yeast infection B37.3 [place] [id number] [place] [address] 82464- 1993 Nov, [place] [id number] [place] [address] 72159- 1162 Nov, [place] [id number] [place] [address] 53970- 2391 Oct, [place] [id number] [place] [address] 08306- 0107 Oct, HSV (herpes simplex virus) infection B00.9 ; Yeast infection B37.9 ; Change in bowel habit R19.4 ; Nausea & vomiting R11.2 and Gastroesophageal reflux disease without esophagitis K21.9 [place] [address] [place] [address] 58646- 2350 Oct, [place] [id number] [place] [address] 79727- 6697 Oct, Type 2 diabetes mellitus without complication E11.9 ; Essential hypertension I10 and Acute maxillary sinusitis, recurrence not specified J01.00 [place] [id number] [place] [address] 48113- 6747 Oct, [facility] [id number] [place] [address] 60501- 3733 Oct, [address] 95102- 3381 Oct, Exposure to head lice Z20.7 ; Blood glucose abnormal R73.09 ; Boil of buttock L02.32 and Type 2 diabetes mellitus without complication E11.[address] 73546- 4748 Oct, [address] 76924- 3481 Sep, [address] 42105- 6806 Sep, [address] 39721- 7431 Aug, Encounter for Depo-Provera contraception Z30.[address] 73081- 0236 Aug, Anxiety F41.9 ; Spinal stenosis, lumbar region M48.06 ; Radiculopathy of lumbar region M54.16 ; Asthma J45.909 ; GERD (gastroesophageal reflux disease) K21.9 ; Essential hypertension I10 and Long-term use of high- risk medication Z79.[address] 86691- 8472 Jul, [address] 07280- 3883 Jun, Hemorrhoid 455.[address] 33452- 6040 Jun, [address] 65570- 4330 Jun, Anxiety 300.00 ; Asthma 493.90 ; Hyperhidrosis 705.21 ; Chest discomfort 786.59 and Upper respiratory infection 465.[id number] [place] [address] 45785- 9198 May, Encounter for Depo-Provera contraception V25.49 [place] [address] 60986- 5401 May, [place] [address] 80177- 8782 May, [place] [address] 72115- 1386 May, Spinal stenosis of lumbar region with radiculopathy 724.02 ; Bulging of intervertebral disc between L4 and L5 722.10 ; GERD ( gastroesophageal reflux disease) 530.81 ; Chronic pain 338.29 ; Declining mobility 799.89 and Epigastric pain 789.06 [place] [address] 68144- 3753 Apr, [address] 92678- 0122 Apr, Nausea 787.02 and Heart burn 787.[address] 04256- 6046 Mar, Lumbago 724.2 ; Vitamin D deficiency 268.9 ; Anxiety 300.00 ; Allergic rhinitis 477.9 and Contraceptive surveillance V25.[address] 50123- 5661 February, 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 ; Chronic pain 338.29 and Vaginal discharge 623.5 [place] [address] 25429- 0724 February, [address] 05670- 9504 February, [place] [address] 14846- 5671 Jan, [place] [address] [place] [id number] [address]- 5065 13 Jan, 2015 [facility] [place] [facility] [address] [id number] [place] [address]- 8582 26 Dec, 2014 [facility] [place] [facility] [address] [id number] [place] [address]- 1483 26 Dec, 2014 [facility] [place] [facility] [address] [id number] [place] [address]- 4137 Dec, [facility] [place] [facility] [address] [id number] [place] [address]- 9486 Dec, [facility] [place] [facility] [address] [id number] [place] [address]- 6090 Dec, [facility] [place] [facility] [address] [id number] [place] [address]- 9067 18 Dec, 2014 [facility] [place] [facility] [address] [id number] [place] [address]- 0193 Dec, [facility] [place] [facility] [address] [id number] [place] [address]- 3525 Dec, [facility] [place] [facility] [address] [id number] [place] [address]- 0199 Dec, [facility] [place] [facility] [address] [facility] [id number] [place] [address]- 2237 Dec, [facility] [place] [facility] [address] [id number] [place] [address]- 0829 Dec, [facility] [place] [facility] [address] [id number] [place] [address]- 0815 Dec, [facility] [place] [facility] [address] [id number] [place] [address]- 8607 Nov, [facility] [place] [facility] [address] [id number] [place] [address]- 3615 Nov, [facility] [place] [facility] [address] [id number] [place] [address]- 6271 24 Nov, 2014 [facility] [place] [facility] [address] [id number] [place] [address]- 9226 24 Nov, 2014 [facility] [place] [facility] [address] [id number] [place] [address]- 5546 23 Nov, 2014 [facility] [place] [facility] [address] [facility] [id number] [place] [address]- 1786 23 Nov, 2014 [facility] [place] [facility] [address] [facility] [id number] [place] [address]- 8406 16 Nov, 2014 [facility] [place] [facility] [address] [id number] [place] [address]- 2746 16 Nov, 2014 [facility] [place] [facility] [address] [facility] [id number] [place] [address]- 3949 13 Nov, 2014 [facility] [place] [facility] [address] [facility] [id number] [place] [address]- 4032 13 Nov, 2014 [facility] [place] [facility] [address] [facility] [id number] [place] [address]- 1493 13 Nov, 2014 [facility] [place] [facility] [address] [facility] [id number] [place] [address]- 6223 13 Nov, 2014 [facility] [place] [facility] [address] [facility] [id number] [place] [address]- 2364 13 Nov, 2014 [facility] [place] [facility] [address] [facility] [id number] [place] [address] 2546 13 Nov, 2014 [facility] [place] [facility] [address] [facility] [id number] [place] [address] 13 Nov, 2014 [facility] [place] [facility] [address] [facility] [id number] [place] [address] 13 Nov, 2014 [facility] [place] [facility] [address] [facility] [id number] [place] [address] 10 Nov, 2014 [facility] [place] [facility] [address] [facility] [id number] [place] [address] 10 Nov, 2014 [facility] [place] [facility] [address] [id number] [place] [address] Nov, 2014 [facility] [place] [facility] [address] [id number] [place] [address] Nov, 2014 [facility] [place] [facility] [address] [id number] [place] [address] Nov, 2014 [facility] [place] [facility] [address] [id number] [place] [address] Nov, [facility] [place] [facility] [address] [id number] [place] [address] Nov, [facility] [place] [facility] [address] [id number] [place] [address] Oct, [facility] [place] [facility] [address] [id number] [place] [address] Oct, [facility] [place] [facility] [address] [id number] [place] [address] Oct, [facility] [place] [facility] [address] [id number] [place] [address] Oct, [facility] [place] [facility] [address] [id number] [place] [address] Oct, [facility] [place] [facility] [address] [id number], [place] [address] Oct, [facility] [place] [facility] [address] [id number], [place] [address] Oct, [facility] [place] [facility] [address] [id number] [place] [address] Oct, [facility] [place] [facility] [address] [id number] [place] [address] Oct, [facility] [place] [facility] [address] [id number] [place] [address] Oct, [facility] [place] [facility] [address] [id number], [place] [address] Oct, [facility] [address] [id number] [place] [address] Oct, [facility] [place] [facility] [address] [id number] [place] [address] Oct, [facility] [place] [facility] [address] [id number] [place] [address] 6771 Oct, [facility] [place] [facility] [address] [id number] [place] [address] 1940 Oct, [facility] [place] [facility] [address] [id number] [place] [address] 3321 Oct, [facility] [place] [facility] [address] [id number] [place] [address] 6783 Oct, [facility] [address] [id number] [place] [address] 0887 Oct, [facility] [place] [facility] [address] [id number] [place] [address]- 0603 Oct, [facility] [place] [facility] [address] [id number] [place] [address]- 4554 Oct, [facility] [place] [facility] [address] [facility] [id number] [place] [address]- 2118 Oct, [facility] [place] [facility] [address] [id number] [place] [address] 4995 Sep, [facility] [place] [facility] [address] [id number], [place] [address] 29 Sep, 2014 [facility] [place] [facility] [address] [id number] [place] [address]- 9661 Sep, [facility] [place] [facility] [address] [id number] [place] [address]- 7118 Sep, [facility] [place] [facility] [address] [id number] [place] [address]- 2425 17 Sep, 2014 [facility] [place] [facility] [address] [id number] [place] [address]- 5523 17 Sep, 2014 [facility] [place] [facility] [address] [id number] [place] [address]- 7486 15 Sep, 2014 [facility] [place] [facility] [address] [id number] [place] [address]- 6336 15 Sep, 2014 [facility] [place] [facility] [address] [id number] [place] [address]- 9626 12 Sep, 2014 [facility] [place] [facility] [address] [id number] [place] [address]- 4107 12 Sep, 2014 [facility] [place] [facility] [address] [id number] [place] [address]- 4544 Sep, [facility] [place] [facility] [address] [id number] [place] [address]- 5498 Sep, [facility] [place] [facility] [address] [id number] [place] [address]- 7044 Sep, [facility] [place] [facility] [address] [id number] [place] [address]- 5994 Sep, [facility] [place] [facility] [address] [id number] [place] [address]- 2456 Sep, [facility] [place] [facility] [address] [id number] [place] [address]- 0192 Sep, [facility] [place] [facility] [address] [id number] [place] [address]- 8417 Sep, [facility] [place] [facility] [address] [id number] [place] [address]- 3470 Sep, [facility] [place] [facility] [address] [id number] [place] [address]- 9546 Sep, [facility] [place] [facility] [address] [id number] [place] [address] 08 Sep, 2014 [facility] [place] [facility] [address] [id number] [place] [address]- 4985 Aug, [facility] [place] [facility] [address] [id number] [place] [address]- 3703 Aug, [facility] [place] [facility] [address] [id number] [place] [address]- 5948 Aug, [facility] [place] [facility] [address] [id number] [place] [address]- 7456 Aug, [facility] [place] [facility] [address] [id number] [place] [address]- 9069 Aug, [facility] [place] [facility] [address] [id number] [place] [address]- 2186 Aug, [facility] [place] [facility] [address] [id number] [place] [address]- 6070 Aug, [facility] [place] [facility] [address] [id number] [place] [address]- 5761 Aug, [facility] [place] [facility] [address] [id number] [place] [address]- 0468 Aug, [facility] [place] [facility] [address] [id number] [place] [address]- 0025 Jul, [facility] [place] [facility] [address] [id number] [place] [address]- 9558 Jul, [facility] [place] [facility] [address] [id number], [place] [address] 1982 Jul, [facility] [place] [facility] [address] [id number], [place] [address]- 9540 Jul, [facility] [place] [facility] [address] [id number] [place] [address]- 7083 Jul, [facility] [place] [facility] [address] [id number], [place] [address]- 9915 Jul, [facility] [place] [facility] [address] [id number], [place] [address]- 6227 Jul, [facility] [place] [facility] [address] [id number] [place] [address]- 0151 13 Jul, 2013 [facility] [place] [facility] [address] [id number] [place] [address]- 1256 10 Jul, 2013 [facility] [place] [facility] [address] [id number] [place] [address]- 8606 10 Jul, 2013 [facility] [place] [facility] [address] [id number] [place] [address]- 9806 10 Jul, 2013 [facility] [place] [facility] [address] [id number] [place] [address] 254 10 Jul, 2013 [facility] [place] [facility] [address] [id number] [place] [address]- 0862 07 Jul, 2014 [facility] [place] [facility] [address] [id number] [place] [address]- 2145 07 Jul, 2014 [facility] [place] [facility] [address] [id number] [place] [address]- 1088 30 Sep, 2013 [facility] [place] [facility] [address] [id number] [place] [address] 2541 30 Sep, 2013 [facility] [place] [facility] [address] [id number] [place] [address] 2546 25 Sep, 2013 [facility] [place] [facility] [address] [id number] [place] [address] 2544 25 Sep, 2013 [facility] [place] [facility] [address] [id number] [place] [address] 2546 25 Sep, 2013 [facility] [place] [facility] [address] [id number] [place] [address] 2546 25 Sep, 2013 [facility] [place] [facility] [address] [id number] [place] [address] 2546 24 Sep, 2013 [facility] [place] [facility] [address] [id number] [place] [address] 2546 24 Sep, 2013 [facility] [place] [facility] [address] [id number] [place] [address] 2547 22 Sep, 2013 [facility] [place] [facility] [address] [id number] [place] [address]- 9140 22 Sep, 2013 [facility] [place] [facility] [address] [id number] [place] [address]- 0669 17 Sep, 2013 [facility] [place] [facility] [address] [id number] [place] [address]- 0453 17 Sep, 2013 [facility] [place] [facility] [address] [id number] [place] [address]- 2217 16 Sep, 2013 [facility] [place] [facility] [address] [id number] [place] [address]- 6689 16 Sep, 2013 [facility] [place] [facility] [address] [id number] [place] [address]- 2686 15 Jun, 2013 [facility] [place] [facility] [address] [id number] [place] [address]- 8001 15 Jun, 2013 [facility] [place] [facility] [address] [id number] [place] [address]- 9080 12 Jun, 2013 [facility] [place] [facility] [address] [id number] [place] [address]- 8386 12 Jun, 2013 [facility] [place] [facility] [address] [id number] [place] [address]- 0123 11 Jun, 2013 [facility] [place] [facility] [address] [id number] [place] [address]- 0719 11 Jun, 2013 [facility] [place] [facility] [address] [id number] [place] [address]- 254 11 Jun, 2013 [facility] [place] [facility] [address] [id number] [place] [address]- 2541 11 Jun, 2013 [facility] [place] [facility] [address] [id number] [place] [address]- 2548 09 Sep, 2013 [facility] [place] [facility] [address] [id number] [place] [address]- 1667 09 Sep, 2013 [facility] [place] [facility] [address] [id number] [place] [address]- 5520 Jun, [facility] [place] [facility] [address] [id number] [place] [address]- 1717 Jun, [facility] [place] [facility] [address] [id number] [place] [address]- 5561 May, [facility] [place] [facility] [address] [id number] [place] [address]- 8401 May, [facility] [place] [facility] [address] [id number] [place] [address]- 8542 May, [facility] [place] [facility] [address] [id number] [place] [address]- 1359 May, [facility] [place] [facility] [address] [id number] [place] [address]- 6658 May, [facility] [place] [facility] [address] [id number] [place] [address]- 4096 May, [facility] [place] [facility] [address] [id number] [place] [address]- 6849 May, [facility] [place] [facility] [address] [id number] [place] [address]- 9431 May, [facility] [place] [facility] [address] [id number] [place] [address]- 4930 May, [facility] [place] [facility] [address] [id number] [place] [address]- 8876 May, [facility] [place] [facility] [address] [id number] [place] [address]- 2281 May, [facility] [place] [facility] [address] [id number] [place] [address]- 4180 May, [facility] [place] [facility] [address] [id number] [place] [address]- 5085 May, [facility] [place] [facility] [address] [id number] [place] [address]- 3607 Apr, [facility] [place] [facility] [address] [id number] [place] [address]- 7664 Apr, [facility] [place] [facility] [address] [id number] [place] [address]- 1614 Apr, [facility] [place] [facility] [address] [id number] [place] [address]- 1990 Apr, [facility] [place] [facility] [address] [id number] [place] [address]- 2272 Apr, [facility] [place] [facility] [address] [id number] [place] [address]- 3659 Mar, [facility] [place] [facility] [address] [id number] [place] [address]- 7894 Mar, [facility] [place] [facility] [address] [id number] [place] [address]- 1135 Mar, [facility] [place] [facility] [address] [id number] [place] [address]- 5880 February, [facility] [address] [id number] [place] [address]- 0256 February, [facility] [place] [facility] [address] [id number] [place] [address]- 8647 February, [facility] [address] [id number] [place] [address]- 1040 February, [facility] [place] [facility] [address] [id number] [place] [address]- 5972 February, [facility] [place] [facility] [address] [id number] [place] [address]- 9485 February, [facility] [place] [facility] [address] [id number] [place] [address]- 5894 February, [facility] [place] [facility] [address] [id number] [place] [address]- 4026 February, [facility] [place] [facility] [address] [id number] [place]279 February, [facility] [place] [facility] [address] [id number] [place] [address]- 3686 Jan, [facility] [place] [facility] [address] [id number] [place] [address]- 5485 Jan, [facility] [place] [facility] [address] [id number] [place] [address]- 6756 Jan, [facility] [place] [facility] [address] [id number] [place] [address]- 6711 Jan, [facility] [place] [facility] [address] [id number] [place] [address]- 0182 Jan, [facility] [place] [facility] [address] [id number] [place] [address]- 2479 Dec, [facility] [place] [facility] [address] [id number] [place] [address]- 8514 Dec, [facility] [place] [facility] [address] [id number] [place] [address]- 9159 Dec, [facility] [place] [facility] [address] [id number] [place] [address]- 4221 Dec, [facility] [place] [facility] [address] [id number] [place] [address]- 1968 Dec, [facility] [place] [facility] [address] [id number] [place] [address]- 5311 Nov, [facility] [place] [facility] [address] [id number] [place] [address]- 2055 Nov, [facility] [place] [facility] [address] [id number] [place] [address]- 5997 Nov, [facility] [place] [facility] [address] [id number] [place] [address]- 2067 Nov, [facility] [place] [facility] [address] [id number] [place] [address]- 8988 Oct, [facility] [place] [facility] [address] [id number] [place] [address]- 3926 30 Oct, 2013 [facility] [place] [facility] [address] [id number] [place] [address]- 7690 Oct, [facility] [place] [facility] [address] [id number] [place] [address]- 4475 Oct, [facility] [place] [facility] [address] [id number] [place] [address]- 7725 Oct, [facility] [place] [facility] [address] [id number] [place] [address]- 2580 Oct, [facility] [place] [facility] [address] [id number] [place] [address]- 4045 Oct, [facility] [place] [facility] [address] [id number] [place] [address]- 9487 Oct, [facility] [place] [facility] [address] [id number] [place] [address]- 0586 Oct, [facility] [place] [facility] [address] [id number] [place] [address]- 6543 Oct, [facility] [place] [facility] [address] [id number] [place] [address]- 0325 Aug, [facility] [place] [facility] [address] [id number] [place] [address]- 2783 Aug, [facility] [place] [facility] [address] [id number] [place] [address]- 9348 Jul, [facility] [place] [facility] [address] [id number] [place] [address]- 1827 Jul, [facility] [place] [facility] [address] [id number] [place] [address]- 3501 Jul, [facility] [place] [facility] [address] [id number] [place] [address]- 8597 Jul, [facility] [place] [facility] [address] [id number] [place] [address]- 0477 Jul, [facility] [place] [facility] [address] [id number] [place] [address]- 7185 Jul, [facility] [place] [facility] [address] [id number] [place] [address]- 0461 Apr, [facility] [place] [facility] [address] [id number] [place] [address]- 2127 Dec, [facility] [place] [facility] [address] [id number] [place] [address]- 1226 Nov, [facility] [place] [facility] [address] [id number] [place] [address]- 2837 Nov, [facility] [place] [facility] [address] [id number] [place] [address]- 2123 Nov, [facility] [place] [facility] [address] [id number] [place] [address]- 1928 Oct, [facility] [place] [facility] [address] [id number] [place] [address]- 6595 Sep, [facility] [place] [facility] [address] [id number] [place] [address]- 6145 Sep, [facility] [place] [facility] [address] [id number] [place] [address]- 3346 Sep, [facility] [place] [facility] [address] [id number] [place] [address]- 9356 Sep, [facility] [place] [facility] [address] [id number], [place] [address]- 6453 Aug, [facility] [place] [facility] [address] [id number] [place] [address]- 0079 Aug, [facility] [place] [facility] [address] [id number] [place] [address]- 9588 Jul, [facility] [place] [facility] [address] [id number] 2741 Jul, [facility] [place] [facility] [address] [id number], [place] [address]- 9050 28 Jun, 2012 [facility] [place] [facility] [address] [id number] [place] [address]- 2726 26 Jun, 2012 [facility] [place] [facility] [address] [id number] [place] [address]- 8566 24 Jun, 2012 [facility] [place] [facility] [address] [id number] [place] [address]- 9386 24 Jun, 2012 [facility] [place] [facility] [address] [id number] [place] [address]- 6139 12 Jun, 2012 [facility] [place] [facility] [address] [id number] [place] [address]- 9891 31 Apr, 2012 [facility] [place] [facility] [address] [id number] [place] [address]- 6922 30 Apr, 2012 [facility] [place] [facility] [address] [id number] [place] [address]- 3927 Apr, [facility] [place] [facility] [address] [id number] [place] [address]- 5281 Mar, [facility] [place] [facility] [address] [id number] [place] [address]- 9202 Mar, [facility] [place] [facility] [address] [id number] [place] [address]- 7902 Mar, [facility] [place] [facility] [address] [id number] [place] [address]- 1669 February, [facility] [place] [facility] [address] [id number] [place] [address]- 7914 Jan, [facility] [place] [facility] [address] [id number] [place] [address]- 9796 Dec, [facility] [place] [facility] [address] [id number] [place] [address]- 4073 Dec, [facility] [place] [facility] [address] [id number] [place] [address]- 7948 Dec, [facility] [place] [facility] [address] [id number] [place] [address]- 9329 19 Dec, 2011 [facility] [place] [facility] [address] [id number] [place] [address]- 3844 Dec, [facility] [place] [facility] [address] [id number] [place] [address]- 7546 14 Nov, 2011 [facility] [place] [facility] [address] [id number] [place] [address]- 6666 13 Nov, 2011 [facility] [place] [facility] [address] [id number] [place] [address]- 2251 Oct, [facility] [place] [facility] [address] [id number] [place] [address]- 1858 Oct, [facility] [place] [facility] [address] [id number] [place] [address]- 1443 Oct, [facility] [place] [facility] [address] [id number] [place] [address]- 7558 Sep, [facility] [place] [facility] [address] [id number] [place] [address]- 7640 Aug, [facility] [place] [facility] [address] [id number] [place] [address]- 1104 Aug, [facility] [place] [facility] [address] [id number] [place] [address]- 8300 28 Jul, 2011 [facility] [place] [facility] [address] [id number] [place] [address]- 7134 24 Jul, 2011 [facility] [place] [facility] [address] [id number] [place] [address]- 7834 19 Jul, 2011 [facility] [place] [facility] [address] [id number] [place] [address]- 8957 13 Jan, 2011 [facility] [place] [facility] [address] [id number] [place] [address]- 2541 29 Sep, 2010 [facility] [place] [facility] [address] [id number] [place] [address]- 5188 Sep, [facility] [place] [facility] [address] [id number] [place] [address]- 6269 Sep, [facility] [place] [facility] [address] [id number] [place] [address]- 5716 Sep, [facility] [place] [facility] [address] [facility] [id number] [place] [address]- 4086 Sep, [facility] [place] [facility] [address] [id number] [place] [address]- 9212 Aug, [facility] [place] [facility] [address] [id number] [place] [address] 16 Aug, 2010 [facility] [place] [facility] [address] [id number] [place] [address] 08 Aug, 2010 [facility] [place] [facility] [address] [id number] [place] [address] Jul, [facility] [place] [facility] [address] [id number], [place] [address] Jul, [facility] [place] [facility] [address] [id number], [place] [address] Jul, [facility] [place] [facility] [address] [id number], [place] [address] May, [facility] [place] [facility] [address] [id number], [place] [address] 13 Apr, 2010 [facility] [place] [facility] [address] [id number], [place] [address] 18 Dec, 2009 [facility] [place] [facility] [address] [id number], [place] [address] 17 Sep, 2009 [facility] [place] [facility] [address] [id number], [place] [address] 17 Sep, 2009 [facility] [place] [facility] [address] [facility] [id number], [place] [address] Aug, [facility] [place] [facility] [address] [facility] [id number] [place] [address] Aug, [facility] [address] [facility] [id number] [place] [address] Jul, [facility] [address] [facility] [id number] [place] [address] 10 Mar, 2009 IMMUNIZATIONS No Known Immunizations SOCIAL HISTORY Never Assessed REASON FOR VISIT 1 wk f/u DM Ed attempt PLAN OF CARE VITAL SIGNS MEDICATIONS [...]
--- OUTSIDE RECORDS SUMMARY | 2018-10-08 20:07 | XMS REPORT ---
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 210902805 Problem Edema of both feet R60.0 Active 625398222 Problem Tobacco abuse Z72.0 Active 85667392 Problem Chronic migraine G43.709 Active 81279963 Problem Mixed hyperlipidemia E78.2 Active 119564033 Problem Spinal stenosis, lumbar region M48.06 Active 89564884 Problem Anxiety F41.9 Active 29183055 Problem Radiculopathy of lumbar region M54.16 Active 777349577 Problem Bulging lumbar disc M51.26 Active 997276971 Problem Asthma J45.909 Active 585839551 Problem Essential hypertension I10 Active 31229245 ALLERGIES No Information ENCOUNTERS Encounter Location Date Diagnosis [facility] [id number] [address] Mar, [facility] [id number] [address] February, Chronic pain G89.29 [facility] [address] [address] Jan, Chronic pain G89.29 [facility] [id number] [address] Jan, 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 [address] [id number] [place] [address] 42976- 2044 Jan, Encounter for Depo-Provera contraception Z30.42 [place] [id number] [place] [address] 88641- 6300 Jan, [place] [address] 02664- 7652 Jan, Chronic pain G89.29 and Anxiety F41.9 [place] [address] 23624- 1051 Jan, [place] [address] 61227- 1341 Dec, [place] [address] 22489- 9710 Dec, Gastroesophageal reflux disease without esophagitis K21.9 and Anxiety F41.9 [place] [id number] [place] [address] 49689- 5262 Dec, Essential hypertension I10 ; Mixed hyperlipidemia E78.2 ; Type 2 diabetes mellitus with diabetic neuropathy, unspecified E11.40 ; snf 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 Z79.4 ; Chronic pain G89.29 ; HSV (herpes simplex virus) infection B00.9 ; Anxiety F41.9 and Gastroesophageal reflux disease without esophagitis K21.9 [place] [id number] [place] [address] 67052- 4325 Dec, Chronic pain G89.29 and Chronic migraine G43.709 [place] [id number] [place] [address] 30630- 5885 Nov, [place] [id number] [place] [address] 66852- 1845 Nov, Essential hypertension I10 and Chronic pain G89.29 [place] [address] 76400- 6843 Nov, Chronic pain G89.29 ; Essential hypertension I10 and Type 2 diabetes mellitus without complication E11.9 [place] [id number] [place] [address] 97155- 9808 Oct, Chronic pain G89.29 [place] [id number] [place] [address] 81919- 4593 Oct, [place] [address] 20937- 8075 Sep, Type 2 diabetes mellitus without complication E11.9 ; Essential hypertension I10 ; terminal operations manager (current) use of insulin Z79.4 ; Chronic migraine G43.709 ; Chronic pain G89.29 and Acute non-recurrent maxillary sinusitis J01.00 [place] [id number] [place] [address] 28785- 6907 Sep, Encounter for Depo-Provera contraception Z30.42 [place] [id number] [place] [address] 23616- 8522 Sep, Chronic pain G89.29 and Radiculopathy of lumbar region M54.16 [place] [id number] [place] [address] 60227- 3471 Sep, [place] [id number] [place] [address] 96700- 9877 Sep, [place] [id number] [place] [address] 27425- 7001 Aug, Type 2 diabetes mellitus without complication E11.9 [place] [id number] [place] [address] 69824- 5398 Aug, [place] [id number] [place] [address] 86806- 1105 Aug, Radiculopathy of lumbar region M54.16 and Chronic pain G89.29 [place] [id number] [place] [address] 29803- 4064 Aug, Type 2 diabetes mellitus without complication E11.9 [facility] [address] [facility] [id number] [address] 8267 Aug, Type 2 diabetes mellitus without complication E11.9 [facility] [id number] [place] [address] 76998- 6636 Jul, Type 2 diabetes mellitus without complication E11.9 [facility] [id number] [place] [address] 88862- 5376 Jul, [facility] [id number] [place] [address] 82592 254 Jul, Chronic pain G89.29 [facility] [id number] [place] [address] 44802- 4746 Jul, [facility] [id number] [place] [address] 16399- 0274 Jul, [facility] [id number] [place] [address] 93869- 3583 Jul, Type 2 diabetes mellitus without complication E11.9 [facility] [address], [place] [address] 3385 Jul, [facility] [id number] [place] [address] 07736- 3540 Jul, Type 2 diabetes mellitus without complication E11.9 [facility] [address], [place] [address]- 6262 Jul, [facility] [address], [place] [address]- 2548 Jul, [facility] [id number] [place] [address] 88063- 0067 Jul, [facility] [id number] [place] [address] 96762- 5956 Jun, Type 2 diabetes mellitus without complication E11.9 [facility] [address], [place] [address]- 7166 Jun, Chronic migraine G43.709 ; Type 2 diabetes mellitus without complication E11.9 ; Calculus of right kidney N20.0 ; Yeast dermatitis B37.2 and HSV (herpes simplex virus) infection B00.9 [place] [id number] [place] [address] 90815- 8715 Jun, Type 2 diabetes mellitus without complication E11.9 [place] [address] 15017- 5163 Jun, [place] [address] 81634- 3873 Jun, Radiculopathy of lumbar region M54.16 and Chronic pain G89.29 [place] [address] 70195- 8806 Jun, Encounter for Depo-Provera contraception Z30.42 [place] [address] 05653- 2673 Jun, Type 2 diabetes mellitus without complication E11.9 [place] [id number] [place] [address] 07726- 1133 Jun, [facility] [id number] [place] [address] 41309 -2503 May, Acute nasopharyngitis (common cold) J00 [place] [id number] [place] [address] 63112- 3499 May, Chronic pain G89.29 [place] [address] 60002- 5943 May, Headache following lumbar puncture G97.1 [place] [address] 28903- 2362 May, Radiculopathy of lumbar region M54.16 [place] [address] 25795- 9991 Apr, [place] [address] 10862- 6170 Apr, Type 2 diabetes mellitus without complication E11.9 ; Chronic pain G89.29 ; Essential hypertension I10 ; Radiculopathy of lumbar region M54.16 ; Spinal stenosis, lumbar region M48.06 ; Gastroesophageal reflux disease without esophagitis K21.9 ; HSV (herpes simplex virus) infection B00.9 ; Mixed hyperlipidemia E78.2 ; Anxiety F41.9 and Asthma J45.[address] 60058- 9020 Apr, Encounter for Depo-Provera contraception Z30.[address] 042922- 0517 Apr, Chronic pain G89.29 and Anxiety F41.[address] 93147- 3751 Mar, [address] 12336- 3807 Mar, [address] 15335- 8686 Mar, Mixed hyperlipidemia E78.[address] 93465- 5995 Mar, Type 2 diabetes mellitus without complication E11.9 ; Chronic pain G89.29 ; Essential hypertension I10 ; Radiculopathy of lumbar region M54.16 ; Spinal stenosis, lumbar region M48.06 ; Gastroesophageal reflux disease without esophagitis K21.9 ; HSV (herpes simplex virus) infection B00.9 ; Mixed hyperlipidemia E78.2 and Anxiety F41.[address] 75993- 2738 Mar, [address] 38408- 9869 Mar, [address] 75500- 5111 Mar, [facility] [address], [place] [address]- 9048 February, Chronic pain G89.29 [facility] [id number] [place] [address] 86030- 3883 February, [facility] [id number] [place] [address] 83282- 7839 Jan, Chronic pain G89.29 [facility] [id number] [place] [address] 13921- 3262 Jan, Type 2 diabetes mellitus without complication E11.9 [place] [id number] [place] [address] 58159- 4964 Jan, [facility] [id number] [place] [address] 95838- 9572 Jan, [facility] [id number] [place] [address] 01709- 0010 Jan, [facility] [id number] [place] [address] 99111- 5686 Jan, Type 2 diabetes mellitus without complication [...] and Encounter for Depo-Provera contraception Z30.42 [facility] [id number] [place] [address] 16698- 3461 Dec, Chronic pain G89.29 [facility] [id number] [place] [address] 86166- 6240 Dec, Abnormal ankle brachial index (BERNARDINO) R68.89 [facility] [id number] [place] [address] 88300- 5280 Dec, [address] [place] [address] 40758- 2268 Dec, Routine gynecological examination Z01.419 ; Chronic [...] virus) infection B00.9 and Allergic rhinitis 477.9 [id number] [place] [address] 37180- 7140 Nov, Chronic pain G89.29 [address] [place] [address] 57814- 1283 02 Nov, 2016 Chronic pain G89.29 ; [...] mucoid otitis media of both ears H65.113 [place] [address] [place] [address] 43455- 1085 Oct, [address] [place] [address] 84383- 7491 Oct, Chronic pain G89.29 [address] [id number] [place] [address] 30457- 4085 Oct, Chronic pain G89.29 [address] [address] [place] [address] 93291- 5116 Sep, Chronic pain G89.29 ; Type 2 diabetes mellitus without complication E11.9 ; Essential hypertension I10 ; Radiculopathy of lumbar region M54.16 ; Spinal stenosis, lumbar region M48.06 ; Gastroesophageal reflux disease without esophagitis K21.9 ; Encounter for surveillance of injectable contraceptive Z30.42 ; Bilateral cold feet R20.9 ; Pain of left foot M79.672 and Pain in right foot M79.671 [place] [id number] [place] [address] 70740- 2878 Sep, [address] [address] 68119- 6827 Aug, [address] [address] 28350- 8941 Aug, [place] [address] 06960- 0433 Aug, Chronic pain G89.29 ; Type 2 diabetes mellitus without complication E11.9 ; Essential hypertension I10 ; Rash and nonspecific skin eruption R21 and Upper respiratory infection, acute J06.9 [address] [address] 83557- 5918 Aug, [address] [address] 71023- 0757 Aug, [place] [address] 46301- 2982 Jul, [place] [address] 81009- 4096 Jul, Dysuria R30.0 ; Encounter for Depo-Provera contraception Z30.42 ; Herpes simplex B00.9 ; Nausea & vomiting R11.2 and Asthma J45.909 [address] 97173- 8861 Jun, Dysuria R30.0 [place] [address] 68646- 1748 Jun, Dysuria R30.0 [place] [address] 32950- 7252 15 Jun, 2016 [place] [id number] [place] [address] 54650- 1226 Jun, [place] [id number] [place] [address] 02684- 1598 May, [place] [id number] [place] [address] 28202- 8854 May, [place] [id number] [place] [address] 94822- 7902 May, Chronic pain G89.29 ; Essential hypertension I10 ; Type 2 diabetes mellitus without complication E11.9 ; Edema of both feet R60.0 and Rash and nonspecific skin eruption R21 [place] [id number] [place] [address] 00126- 7645 Apr, [place] [id number] [place] [address] 84352- 8133 Mar, Carpal tunnel syndrome, left upper limb G56.02 and Carpal tunnel syndrome, right upper limb G56.01 [place] [id number] [place] [address] 97983- 4488 Mar, [place] [id number] [place] [address] 25129- 8500 Mar, Encounter for Depo-Provera contraception Z30.42 [address] [id number] [place] [address] 78484- 1030 February, [place] [id number] [place] [address] 92433- 2068 February, [place] [id number] [place] [address] 15156- 0456 February, Chronic pain G89.29 ; Essential hypertension I10 ; Type 2 diabetes mellitus without complication E11.9 ; HSV (herpes simplex virus) infection B00.9 ; Anxiety F41.9 ; Hypersomnia G47.10 ; Tobacco abuse Z72.0 ; Hand pain, left M79.642 ; Hand pain, right M79.641 ; Left foot pain M79.672 and Heart palpitations R00.[address] 58271- 2759 Jan, [place] [address] 03589- 5092 Jan, [place] [address] 25145- 1489 Jan, [place] [address] 17567- 2986 Jan, [address] 59052- 6862 Jan, Upper respiratory infection J06.9 and Type 2 diabetes mellitus without complication E11.[address] 28956- 3776 Dec, [address] 53461- 3094 Dec, Chronic pain G89.29 ; Essential hypertension I10 ; Type 2 diabetes mellitus without complication E11.9 ; HSV (herpes simplex virus) infection B00.9 ; Anxiety F41.9 ; Upper respiratory infection J06.9 ; Hypersomnia G47.10 and Tobacco abuse Z72.0 [id number] [place] [address] 85315- 5127 Dec, Encounter for Depo-Provera contraception Z30.42 [id number] [place] [address] 42561- 4219 Dec, [address] 33237- 8425 Dec, Chronic pain G89.29 ; Sinusitis J32.9 ; Snoring R06.83 and Daytime hypersomnia G47.[address] 22288- 0011 Nov, HSV (herpes simplex virus) infection B00.9 ; Encounter for Papanicolaou smear for cervical cancer screening Z12.4 ; Screening for STD sexually transmitted disease Z11.3 and Bartholin's gland cyst N75.0 [place] [id number] [place] [address] 26669- 3370 Nov, [place] [id number] [place] [address] 27332- 9153 Nov, [place] [id number] [place] [address] 70298- 1462 Nov, Essential hypertension I10 ; Type 2 diabetes mellitus without complication E11.9 ; HSV (herpes simplex virus) infection B00.9 ; Spinal stenosis, lumbar region M48.06 and Vaginal yeast infection B37.3 [place] [id number] [place] [address] 02290- 0327 Nov, [place] [id number] [place] [address] 85420- 4101 Nov, [place] [id number] [place] [address] 91891- 0631 Oct, [place] [id number] [place] [address] 35601- 5987 Oct, HSV (herpes simplex virus) infection B00.9 ; Yeast infection B37.9 ; Change in bowel habit R19.4 ; Nausea & vomiting R11.2 and Gastroesophageal reflux disease without esophagitis K21.9 [place] [address] [place] [address] 23752- 9237 Oct, [place] [id number] [place] [address] 98566- 3186 Oct, Type 2 diabetes mellitus without complication E11.9 ; Essential hypertension I10 and Acute maxillary sinusitis, recurrence not specified J01.00 [place] [id number] [place] [address] 63470- 2201 Oct, [facility] [place] [facility] [id number] [place] [address] 81201- 5095 Oct, [address] 27332- 0023 Oct, Exposure to head lice Z20.7 ; Blood glucose abnormal R73.09 ; Boil of buttock L02.32 and Type 2 diabetes mellitus without complication E11.[address] 93502- 5357 Oct, [address] 87353- 4763 Sep, [address] 21657- 0365 Sep, [address] 39797- 4774 Aug, Encounter for Depo-Provera contraception Z30.[address] 25728- 8977 Aug, Anxiety F41.9 ; Spinal stenosis, lumbar region M48.06 ; Radiculopathy of lumbar region M54.16 ; Asthma J45.909 ; GERD (gastroesophageal reflux disease) K21.9 ; Essential hypertension I10 and Long-term use of high- risk medication Z79.[address] 44807- 7537 Jul, [address] 78638- 6383 Jun, Hemorrhoid 455.[address] 78037- 0186 Jun, [address] 41447- 6052 Jun, Anxiety 300.00 ; Asthma 493.90 ; Hyperhidrosis 705.21 ; Chest discomfort 786.59 and Upper respiratory infection 465.[id number] [place] [address] 36906- 0054 May, Encounter for Depo-Provera contraception V25.49 [place] [address] 45192- 0092 May, [place] [address] 91179- 9305 May, [place] [address] 18943- 7938 May, Spinal stenosis of lumbar region with radiculopathy 724.02 ; Bulging of intervertebral disc between L4 and L5 722.10 ; GERD ( gastroesophageal reflux disease) 530.81 ; Chronic pain 338.29 ; Declining mobility 799.89 and Epigastric pain 789.06 [place] [address] 27699- 8529 Apr, [address] 15494- 6224 Apr, Nausea 787.02 and Heart burn 787.[address] 22233- 4973 Mar, Lumbago 724.2 ; Vitamin D deficiency 268.9 ; Anxiety 300.00 ; Allergic rhinitis 477.9 and Contraceptive surveillance V25.[address] 26808- 2878 February, 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 ; Chronic pain 338.29 and Vaginal discharge 623.5 [place] [address] 82398- 3222 February, [address] 92592- 1389 February, [place] [address] 63611- 3561 Jan, [place] [id number] [place] [address]- 1791 13 Jan, 2015 [facility] [place] [facility] [address] [id number] [address]- 5366 26 Dec, 2014 [facility] [place] [facility] [address] [id number] [place] [address]- 5571 26 Dec, 2014 [facility] [place] [facility] [address] [id number] [place] [address]- 4662 Dec, [facility] [place] [facility] [address] [id number] [place] [address]- 9214 Dec, [facility] [place] [facility] [address] [id number] [place] [address]- 8031 Dec, [facility] [place] [facility] [address] [id number] [place] [address]- 1296 18 Dec, 2014 [facility] [place] [facility] [address] [id number] [place] [address]- 2314 Dec, [facility] [place] [facility] [address] [id number] [place] [address]- 5643 Dec, [facility] [place] [facility] [address] [id number] [place] [address]- 3758 Dec, [facility] [place] [facility] [address] [facility] [id number] [place] [address]- 3551 Dec, [facility] [place] [facility] [address] [id number] [place] [address]- 3854 Dec, [facility] [place] [facility] [address] [id number] [place] [address]- 9746 Dec, [facility] [place] [facility] [address] [id number] [place] [address]- 6224 Nov, [facility] [place] [facility] [address] [id number] [place] [address]- 8279 Nov, [facility] [place] [facility] [address] [id number] [place] [address]- 4025 24 Nov, 2014 [facility] [place] [facility] [address] [id number] [place] [address]- 4006 24 Nov, 2014 [facility] [place] [facility] [address] [id number] [place] [address]- 2056 23 Nov, 2014 [facility] [place] [facility] [address] [facility] [id number] [place] [address]- 4026 23 Nov, 2014 [facility] [place] [facility] [address] [facility] [id number] [place] [address]- 6426 16 Nov, 2014 [facility] [place] [facility] [address] [id number] [place] [address]- 4046 16 Nov, 2014 [facility] [place] [facility] [address] [facility] [id number] [place] [address]- 7944 13 Nov, 2014 [facility] [place] [facility] [address] [facility] [id number] [place] [address]- 9825 13 Nov, 2014 [facility] [place] [facility] [address] [facility] [id number] [place] [address]- 5898 13 Nov, 2014 [facility] [place] [facility] [address] [facility] [id number] [place] [address] 13 Nov, 2014 [facility] [place] [facility] [address] [facility] [id number] [place] [address] 13 Nov, 2014 [facility] [place] [facility] [address] [facility] [id number] [place] [address] 13 Nov, 2014 [facility] [place] [facility] [address] [facility] [id number] [place] [address] 13 Nov, 2014 [facility] [place] [facility] [address] [facility] [id number] [place] [address] 13 Nov, 2014 [facility] [place] [facility] [address] [facility] [id number] [place] [address] 10 Nov, 2014 [facility] [place] [facility] [address] [facility] [id number] [place] [address] 10 Nov, 2014 [facility] [place] [facility] [address] [id number] [place] [address] Nov, 2014 [facility] [place] [facility] [address] [id number] [place] [address] Nov, 2014 [facility] [place] [facility] [address] [id number] [place] [address] Nov, 2014 [facility] [place] [facility] [address] [id number] [place] [address] Nov, [facility] [place] [facility] [address] [id number] [place] [address] Nov, [facility] [place] [facility] [address] [id number] [place] [address] Oct, [facility] [place] [facility] [address] [id number] [place] [address] Oct, [facility] [place] [facility] [address] [id number] [place] [address] Oct, [facility] [place] [facility] [address] [id number] [place] [address] Oct, [facility] [place] [facility] [address] [id number] [place] [address] Oct, [facility] [place] [facility] [address] [id number], [place] [address] Oct, [facility] [place] [facility] [address] [id number], [place] [address] Oct, [facility] [place] [facility] [address] [id number] [place] [address] Oct, [facility] [place] [facility] [address] [id number] [place] [address] Oct, [facility] [place] [facility] [address] [id number] [place] [address] 8349 Oct, [facility] [place] [facility] [address] [id number], [place] [address] Oct, [facility] [address] [id number] [place] [address] 1374 Oct, [facility] [place] [facility] [address] [id number] [place] [address] 3281 Oct, [facility] [place] [facility] [address] [id number] [place] [address] 1798 Oct, [facility] [place] [facility] [address] [id number] [place] [address] 3536 Oct, [facility] [place] [facility] [address] [id number] [place] [address] 1197 Oct, [facility] [place] [facility] [address] [id number] [place] [address]- 0499 Oct, [facility] [address] [id number] [place] [address] 9591 Oct, [facility] [place] [facility] [address] [id number] [place] [address] 5132 Oct, [facility] [place] [facility] [address] [id number] [place] [address] 3357 Oct, [facility] [place] [facility] [address] [facility] [id number] [place] [address] 4048 Oct, [facility] [place] [facility] [address] [id number] [place] [address] 5414 Sep, [facility] [place] [facility] [address] [id number], [place] [address] 29 Sep, 2014 [facility] [place] [facility] [address] [id number] [place] [address]- 0805 Sep, [facility] [place] [facility] [address] [id number] [place] [address]- 7069 Sep, [facility] [place] [facility] [address] [id number] [place] [address]- 0429 17 Sep, 2014 [facility] [place] [facility] [address] [id number] [place] [address]- 9739 17 Sep, 2014 [facility] [place] [facility] [address] [id number] [place] [address]- 2476 15 Sep, 2014 [facility] [place] [facility] [address] [id number] [place] [address]- 0436 15 Sep, 2014 [facility] [place] [facility] [address] [id number] [place] [address]- 4476 12 Sep, 2014 [facility] [place] [facility] [address] [id number] [place] [address]- 7372 12 Sep, 2014 [facility] [place] [facility] [address] [id number] [place] [address]- 3445 Sep, [facility] [place] [facility] [address] [id number] [place] [address]- 4758 Sep, [facility] [place] [facility] [address] [id number] [place] [address]- 3068 Sep, [facility] [place] [facility] [address] [id number] [place] [address]- 3636 Sep, [facility] [place] [facility] [address] [id number] [place] [address]- 0462 Sep, [facility] [place] [facility] [address] [id number] [place] [address]- 7369 Sep, [facility] [place] [facility] [address] [id number] [place] [address]- 3775 Sep, [facility] [place] [facility] [address] [id number] [place] [address]- 8310 Sep, [facility] [place] [facility] [address] [id number] [place] [address]- 6686 Sep, [facility] [place] [facility] [address] [id number] [place] [address] 08 Sep, 2014 [facility] [place] [facility] [address] [id number] [place] [address]- 3546 Aug, [facility] [place] [facility] [address] [id number] [place] [address]- 9985 Aug, [facility] [place] [facility] [address] [id number] [place] [address]- 2426 Aug, [facility] [place] [facility] [address] [id number] [place] [address]- 6008 Aug, [facility] [place] [facility] [address] [id number] [place] [address]- 3036 Aug, [facility] [place] [facility] [address] [id number] [place] [address]- 0683 Aug, [facility] [place] [facility] [address] [id number] [place] [address]- 9359 Aug, [facility] [place] [facility] [address] [id number] [place] [address]- 2871 Aug, [facility] [place] [facility] [address] [id number] [place] [address]- 7627 Aug, [facility] [place] [facility] [address] [id number] [place] [address]- 9569 Jul, [facility] [place] [facility] [address] [id number] [place] [address]- 7560 Jul, [facility] [place] [facility] [address] [id number], [place] [address]- 9836 Jul, [facility] [place] [facility] [address] [id number], [place] [address]- 1126 Jul, [facility] [place] [facility] [address] [id number] [place] [address]- 0076 Jul, [facility] [place] [facility] [address] [id number], [place] [address]- 2967 Jul, [facility] [place] [facility] [address] [id number], [place] [address]- 8294 Jul, [facility] [place] [facility] [address] [id number] [place] [address]- 4522 13 Jul, 2013 [facility] [place] [facility] [address] [id number] [place] [address]- 4966 10 Jul, 2013 [facility] [place] [facility] [address] [id number] [place] [address]- 2956 10 Jul, 2013 [facility] [place] [facility] [address] [id number] [place] [address]- 5666 10 Jul, 2013 [facility] [place] [facility] [address] [id number] [place] [address] 2540 10 Jul, 2013 [facility] [place] [facility] [address] [id number] [place] [address]- 7907 07 Jul, 2014 [facility] [place] [facility] [address] [id number] [place] [address]- 7828 07 Jul, 2014 [facility] [place] [facility] [address] [id number] [place] [address]- 3700 30 Sep, 2013 [facility] [place] [facility] [address] [id number] [place] [address] 2549 30 Sep, 2013 [facility] [place] [facility] [address] [id number] [place] [address] 2546 25 Sep, 2013 [facility] [place] [facility] [address] [id number] [place] [address] 2543 25 Sep, 2013 [facility] [place] [facility] [address] [id number] [place] [address] 2546 25 Sep, 2013 [facility] [place] [facility] [address] [id number] [place] [address] 2546 25 Sep, 2013 [facility] [place] [facility] [address] [id number] [place] [address] 2546 24 Sep, 2013 [facility] [place] [facility] [address] [id number] [place] [address] 2546 24 Sep, 2013 [facility] [place] [facility] [address] [id number] [place] [address] 2544 22 Sep, 2013 [facility] [place] [facility] [address] [id number] [place] [address]- 9875 22 Sep, 2013 [facility] [place] [facility] [address] [id number] [place] [address]- 1979 17 Sep, 2013 [facility] [place] [facility] [address] [id number] [place] [address]- 3233 17 Sep, 2013 [facility] [place] [facility] [address] [id number] [place] [address]- 1275 16 Sep, 2013 [facility] [place] [facility] [address] [id number] [place] [address]- 1007 16 Sep, 2013 [facility] [place] [facility] [address] [id number] [place] [address]- 0444 15 Jun, 2013 [facility] [place] [facility] [address] [id number] [place] [address]- 3486 15 Jun, 2013 [facility] [place] [facility] [address] [id number] [place] [address]- 7819 12 Jun, 2013 [facility] [place] [facility] [address] [id number] [place] [address]- 6722 12 Jun, 2013 [facility] [place] [facility] [address] [id number] [place] [address]- 6106 11 Jun, 2013 [facility] [place] [facility] [address] [id number] [place] [address]- 5529 11 Jun, 2013 [facility] [place] [facility] [address] [id number] [place] [address]- 254 11 Jun, 2013 [facility] [place] [facility] [address] [id number] [place] [address]- 2544 11 Jun, 2013 [facility] [place] [facility] [address] [id number] [place] [address]- 2548 09 Sep, 2013 [facility] [place] [facility] [address] [id number] [place] [address]- 8744 09 Sep, 2013 [facility] [place] [facility] [address] [id number] [place] [address]- 1423 Jun, [facility] [place] [facility] [address] [id number] [place] [address]- 7307 Jun, [facility] [place] [facility] [address] [id number] [place] [address]- 4264 May, [facility] [place] [facility] [address] [id number] [place] [address]- 9484 May, [facility] [place] [facility] [address] [id number] [place] [address]- 4207 May, [facility] [place] [facility] [address] [id number] [place] [address]- 3970 May, [facility] [place] [facility] [address] [id number] [place] [address]- 1192 May, [facility] [place] [facility] [address] [id number] [place] [address]- 3457 May, [facility] [place] [facility] [address] [id number] [place] [address]- 8636 May, [facility] [place] [facility] [address] [id number] [place] [address]- 5240 May, [facility] [place] [facility] [address] [id number] [place] [address]- 7069 May, [facility] [place] [facility] [address] [id number] [place] [address]- 2097 May, [facility] [place] [facility] [address] [id number] [place] [address]- 6574 May, [facility] [place] [facility] [address] [id number] [place] [address]- 6160 May, [facility] [place] [facility] [address] [id number] [place] [address]- 7816 May, [facility] [place] [facility] [address] [id number] [place] [address]- 7354 Apr, [facility] [place] [facility] [address] [id number] [place] [address]- 9739 Apr, [facility] [place] [facility] [address] [id number] [place] [address]- 4413 Apr, [facility] [place] [facility] [address] [id number] [place] [address]- 7885 Apr, [facility] [place] [facility] [address] [id number] [place] [address]- 9883 Apr, [facility] [place] [facility] [address] [id number] [place] [address]- 1485 Mar, [facility] [place] [facility] [address] [id number] [place] [address]- 6885 Mar, [facility] [place] [facility] [address] [id number] [place] [address]- 4123 Mar, [facility] [place] [facility] [address] [id number] [place] [address]- 5163 February, [facility] [address] [id number] [place] [address]- 6241 February, [facility] [place] [facility] [address] [id number] [place] [address]- 6692 February, [facility] [address] [id number] [place] [address]- 4280 February, [facility] [place] [facility] [address] [id number] [place] [address]- 7830 February, [facility] [place] [facility] [address] [id number] [place] [address]- 7399 February, [facility] [place] [facility] [address] [id number] [place] [address]- 8127 February, [facility] [place] [facility] [address] [id number] [place] [address]- 4966 February, [facility] [place] [facility] [address] [id number] [place] 3399 February, [facility] [place] [facility] [address] [id number] [place] [address]- 3998 Jan, [facility] [place] [facility] [address] [id number] [place] [address]- 2890 Jan, [facility] [place] [facility] [address] [id number] [place] [address]- 6713 Jan, [facility] [place] [facility] [address] [id number] [place] [address]- 1401 Jan, [facility] [place] [facility] [address] [id number] [place] [address]- 2726 Jan, [facility] [place] [facility] [address] [id number] [place] [address]- 7205 Dec, [facility] [place] [facility] [address] [id number] [place] [address]- 0344 Dec, [facility] [place] [facility] [address] [id number] [place] [address]- 2241 Dec, [facility] [place] [facility] [address] [id number] [place] [address]- 2876 Dec, [facility] [place] [facility] [address] [id number] [place] [address]- 5803 Dec, [facility] [place] [facility] [address] [id number] [place] [address]- 9493 Nov, [facility] [place] [facility] [address] [id number] [place] [address]- 9057 Nov, [facility] [place] [facility] [address] [id number] [place] [address]- 5618 Nov, [facility] [place] [facility] [address] [id number] [place] [address]- 7555 Nov, [facility] [place] [facility] [address] [id number] [place] [address]- 5983 Oct, [facility] [place] [facility] [address] [id number] [place] [address]- 2137 30 Oct, 2013 [facility] [place] [facility] [address] [id number] [place] [address]- 1308 Oct, [facility] [place] [facility] [address] [id number] [place] [address]- 7852 Oct, [facility] [place] [facility] [address] [id number] [place] [address]- 7184 Oct, [facility] [place] [facility] [address] [id number] [place] [address]- 9893 Oct, [facility] [place] [facility] [address] [id number] [place] [address]- 5053 Oct, [facility] [place] [facility] [address] [id number] [place] [address]- 1297 Oct, [facility] [place] [facility] [address] [id number] [place] [address]- 4816 Oct, [facility] [place] [facility] [address] [id number] [place] [address]- 9811 Oct, [facility] [place] [facility] [address] [id number] [place] [address]- 2013 Aug, [facility] [place] [facility] [address] [id number] [place] [address]- 1770 Aug, [facility] [place] [facility] [address] [id number] [place] [address]- 7589 Jul, [facility] [place] [facility] [address] [id number] [place] [address]- 8923 Jul, [facility] [place] [facility] [address] [id number] [place] [address]- 1671 Jul, [facility] [place] [facility] [address] [id number] [place] [address]- 8486 Jul, [facility] [place] [facility] [address] [id number] [place] [address]- 5191 Jul, [facility] [place] [facility] [address] [id number] [place] [address]- 1697 Jul, [facility] [place] [facility] [address] [id number] [place] [address]- 8342 Apr, [facility] [place] [facility] [address] [id number] [place] [address]- 6253 Dec, [facility] [place] [facility] [address] [id number] [place] [address]- 8256 Nov, [facility] [place] [facility] [address] [id number] [place] [address]- 9242 Nov, [facility] [place] [facility] [address] [id number] [place] [address]- 5833 Nov, [facility] [place] [facility] [address] [id number] [place] [address]- 9013 Oct, [facility] [place] [facility] [address] [id number] [place] [address]- 4359 Sep, [facility] [place] [facility] [address] [id number] [place] [address]- 1907 Sep, [facility] [place] [facility] [address] [id number] [place] [address]- 5909 Sep, [facility] [place] [facility] [address] [id number] [place] [address]- 8542 Sep, [facility] [place] [facility] [address] [id number], [place] [address]- 4771 Aug, [facility] [place] [facility] [address] [id number] [place] [address]- 0680 Aug, [facility] [place] [facility] [address] [id number] [place] [address]- 1880 Jul, [facility] [place] [facility] [address] [id number] 0257 Jul, [facility] [place] [facility] [address] [id number], [place] [address]- 9056 28 Jun, 2012 [facility] [place] [facility] [address] [id number] [place] [address]- 0846 26 Jun, 2012 [facility] [place] [facility] [address] [id number] [place] [address]- 3916 24 Jun, 2012 [facility] [place] [facility] [address] [id number] [place] [address]- 5426 24 Jun, 2012 [facility] [place] [facility] [address] [id number] [place] [address]- 9878 12 Jun, 2012 [facility] [place] [facility] [address] [id number] [place] [address]- 2592 31 Apr, 2012 [facility] [place] [facility] [address] [id number] [place] [address]- 4612 30 Apr, 2012 [facility] [place] [facility] [address] [id number] [place] [address]- 5527 Apr, [facility] [place] [facility] [address] [id number] [place] [address]- 3790 Mar, [facility] [place] [facility] [address] [id number] [place] [address]- 8078 Mar, [facility] [place] [facility] [address] [id number] [place] [address]- 8615 Mar, [facility] [place] [facility] [address] [id number] [place] [address]- 6182 February, [facility] [place] [facility] [address] [id number] [place] [address]- 2751 Jan, [facility] [place] [facility] [address] [id number] [place] [address]- 4987 Dec, [facility] [place] [facility] [address] [id number] [place] [address]- 0833 Dec, [facility] [place] [facility] [address] [id number] [place] [address]- 6788 Dec, [facility] [place] [facility] [address] [id number] [place] [address]- 4262 19 Dec, 2011 [facility] [place] [facility] [address] [id number] [place] [address]- 8383 Dec, [facility] [place] [facility] [address] [id number] [place] [address]- 8786 14 Nov, 2011 [facility] [place] [facility] [address] [id number] [place] [address]- 9966 13 Nov, 2011 [facility] [place] [facility] [address] [id number] [place] [address]- 9011 Oct, [facility] [place] [facility] [address] [id number] [place] [address]- 0705 Oct, [facility] [place] [facility] [address] [id number] [place] [address]- 7674 Oct, [facility] [place] [facility] [address] [id number] [place] [address]- 1310 Sep, [facility] [place] [facility] [address] [id number] [place] [address]- 6502 Aug, [facility] [place] [facility] [address] [id number] [place] [address]- 6462 Aug, [facility] [place] [facility] [address] [id number] [place] [address]- 6127 28 Jul, 2011 [facility] [place] [facility] [address] [id number] [place] [address]- 1465 24 Jul, 2011 [facility] [place] [facility] [address] [id number] [place] [address]- 4823 19 Jul, 2011 [facility] [place] [facility] [address] [id number] [place] [address]- 2033 13 Jan, 2011 [facility] [place] [facility] [address] [id number] [place] [address]- 2540 29 Sep, 2010 [facility] [place] [facility] [address] [id number] [place] [address]- 6092 Sep, [facility] [place] [facility] [address] [id number] [place] [address] Sep, [facility] [place] [facility] [address] [id number] [place] [address] Sep, [facility] [place] [facility] [address] [facility] [id number] [place] [address] Sep, [facility] [place] [facility] [address] [id number] [place] [address] Aug, [facility] [place] [facility] [address] [id number] [place] [address] 16 Aug, 2010 [facility] [place] [facility] [address] [id number] [place] [address] 08 Aug, 2010 [facility] [place] [facility] [address] [id number] [place] [address] Jul, [facility] [place] [facility] [address] [id number], [place] [address] Jul, [facility] [place] [facility] [address] [id number], [place] [address] Jul, [facility] [place] [facility] [address] [id number], [place] [address] May, [facility] [place] [facility] [address] [id number], [place] [address] 13 Apr, 2010 [facility] [place] [facility] [address] [id number], [place] [address] 18 Dec, 2009 [facility] [place] [facility] [address] [id number], [place] [address] 17 Sep, 2009 [facility] [place] [facility] [address] [id number], [place] [address] 17 Sep, 2009 [facility] [place] [facility] [address] [facility] [id number], [place] [address] Aug, [facility] [place] [facility] [address] [facility] [id number] [place] [address] Aug, [facility] [address] [facility] [id number] [place] [address] Jul, [facility] [address] [facility] [id number] [place] [address] 10 Mar, 2009 IMMUNIZATIONS No Known Immunizations SOCIAL HISTORY Never Assessed REASON FOR VISIT Controlled Refill Requests PLAN OF CARE VITAL SIGNS MEDICATIONS Medication Instructions Dosage Frequency Start Date End Date Duration Status Lyrica 150 MG Orally Three times a day 1 capsule 8h Active Clorazepate Dipotassium 15 MG Orally 3 times a day prn must last 28 days. 1 tablet 28 Active MS Contin 15 MG Orally every 12 hrs as needed must last 28 days 1 tablet Aug, Active Hydrocodone-Acetaminophen 5-325 MG Orally four times a day as needed for pain. Must last 28 days. 1 tablet Aug, Active RESULTS No Results PROCEDURES No Known [...]
--- OUTSIDE RECORDS SUMMARY | 2018-10-08 20:08 | XMS REPORT ---
Author Author CHEL Daugherty Organization [facility] Address [address] [place] [address] Care Team Providers Care Outdoor Studies Professor Name Role Phone [email or web address] CHEL Unavailable PROBLEMS Type Condition ICD9-CM Code AYA81-JZ Code Onset Dates Condition Status SNOMED Code Problem Chronic pain G89.29 Active 68721663 Problem HSV (herpes simplex virus) infection B00.9 Active 33534181 Problem Gastroesophageal reflux disease without esophagitis K21.9 Active 117572426 Problem Type 2 diabetes mellitus with diabetic neuropathy, unspecified E11.40 Active 62132695 Problem half-way 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 Z79.4 Active 506116672 Problem Edema of both feet R60.0 Active 622204156 Problem Tobacco abuse Z72.0 Active 55865275 Problem Chronic migraine G43.709 Active 16025372 Problem Mixed hyperlipidemia E78.2 Active 204991334 Problem Spinal stenosis, lumbar region M48.06 Active 47348337 Problem Anxiety F41.9 Active 91254430 Problem Radiculopathy of lumbar region M54.16 Active 240475073 Problem Bulging lumbar disc M51.26 Active 389076338 Problem Asthma J45.909 Active 746613090 Problem Essential hypertension I10 Active 75185508 ALLERGIES No Information ENCOUNTERS Encounter Location Date Diagnosis [facility] [address], [place] [address] 14 Dec, 2017 [facility] [id number] [place] [address] 40027- 1099 14 Dec, 2017 Gastroesophageal reflux disease without esophagitis K21.9 and Anxiety F41.9 [facility] [id number] [place] [address] 22973- 5698 14 Dec, 2017 Essential hypertension I10 ; Mixed hyperlipidemia E78.2 ; Type 2 diabetes mellitus with diabetic neuropathy, unspecified E11.40 ; half-way 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 Z79.4 ; Chronic pain G89.29 ; HSV (herpes simplex virus) infection B00.9 ; Anxiety F41.9 and Gastroesophageal reflux disease without esophagitis K21.9 [place] [address] 72298- 4848 Dec, Chronic pain G89.29 and Chronic migraine G43.709 [place] [address] 17000- 7298 Nov, [address] 81807- 9308 Nov, Essential hypertension I10 and Chronic pain G89.[address] 47478- 6098 Nov, Chronic pain G89.29 ; Essential hypertension I10 and Type 2 diabetes mellitus without complication E11.[address] 87008- 5201 Oct, Chronic pain G89.[address] 65507- 0263 Oct, [address] 63457- 0967 Sep, Type 2 diabetes mellitus without complication E11.9 ; Essential hypertension I10 ; 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 ; Chronic migraine G43.709 ; Chronic pain G89.29 and Acute non-recurrent maxillary sinusitis J01.[address] 51085- 5116 Sep, Encounter for Depo-Provera contraception Z30.[address] 24283- 7100 Sep, Chronic pain G89.29 and Radiculopathy of lumbar region M54.[address] 69758- 9318 Sep, [facility] [address], [place] [address] 3495 Sep, [facility] [id number] [place] [address] 21992- 6715 Aug, Type 2 diabetes mellitus without complication E11.9 [facility] [id number] [place] [address] 30828- 7742 Aug, [facility] [id number] [place] [address] 48059- 7304 Aug, Radiculopathy of lumbar region M54.16 and Chronic pain G89.29 [facility] [id number] [place] [address] 50856- 0256 Aug, Type 2 diabetes mellitus without complication E11.9 [facility] [id number] [place] [address] 71075- 6258 Aug, Type 2 diabetes mellitus without complication E11.9 [facility] [id number] [place] [address] 66606- 8228 Jul, Type 2 diabetes mellitus without complication E11.9 [facility] [id number] [place] [address] 29556- 4841 Jul, [facility] [id number], [place] [address] 6164 Jul, Chronic pain G89.29 [facility] [id number] [place] [address] 16273- 8960 Jul, [facility] [id number], [place] [address]- 8517 Jul, [facility] [id number] [place] [address] 99737- 4557 Jul, Type 2 diabetes mellitus without complication E11.9 [facility] [address], [place] [address]- 7735 Jul, [place] [address], [place] [address] 0639 12 Jul, 2017 Type 2 diabetes mellitus without complication E11.9 [facility] [id number] [place] [address] 83345- 9373 Jul, [facility] [id number] [place] [address] 61101- 2722 Jul, [place] [id number] [place] [address] 00834- 3744 Jul, [place] [id number] [place] [address] 14955- 0833 27 Jun, 2017 Type 2 diabetes mellitus without complication E11.9 [place] [id number] [place] [address] 54489- 2047 26 Jun, 2017 Chronic migraine G43.709 ; Type 2 diabetes mellitus without complication E11.9 ; Calculus of right kidney N20.0 ; Yeast dermatitis B37.2 and HSV (herpes simplex virus) infection B00.9 [place] [id number] [place] [address] 16757- 8588 Jun, Type 2 diabetes mellitus without complication E11.9 [place] [id number] [place] [address] 29722- 0703 Jun, [place] [id number] [place] [address] 10833- 4054 Jun, Radiculopathy of lumbar region M54.16 and Chronic pain G89.29 [place] [id number] [place] [address] 73130- 7012 Jun, Encounter for Depo-Provera contraception Z30.42 [place] [id number] [place] [address] 18606- 6178 Jun, Type 2 diabetes mellitus without complication E11.9 [facility] [id number] [place] [address] 13549- 8555 10 Jun, 2017 [facility] [id number] [place] [address] 26488 -3154 May, Acute nasopharyngitis (common cold) J00 [place] [address] 94202- 5117 May, Chronic pain G89.29 [place] [address] 03890- 6835 May, Headache following lumbar puncture G97.1 [place] [address] 90488- 6256 May, Radiculopathy of lumbar region M54.16 [place] [address] 65191- 7798 Apr, [place] [address] 17021- 2998 Apr, Type 2 diabetes mellitus without complication E11.9 ; Chronic pain G89.29 ; Essential hypertension I10 ; Radiculopathy of lumbar region M54.16 ; Spinal stenosis, lumbar region M48.06 ; Gastroesophageal reflux disease without esophagitis K21.9 ; HSV (herpes simplex virus) infection B00.9 ; Mixed hyperlipidemia E78.2 ; Anxiety F41.9 and Asthma J45.909 [place] [id number] [place] [address] 48457- 6781 Apr, Encounter for Depo-Provera contraception Z30.42 [place] [id number] [place] [address] 31634- 1763 Apr, Chronic pain G89.29 and Anxiety F41.9 [place] [address] 46768- 1416 Mar, [place] [address] 32689- 4458 Mar, [place] [address] 58079- 8101 Mar, Mixed hyperlipidemia E78.2 [facility] [id number] [place] [address] 17985 2540 22 Mar, 2017 Type 2 diabetes mellitus without complication E11.9 ; Chronic pain G89.29 ; Essential hypertension I10 ; Radiculopathy of lumbar region M54.16 ; Spinal stenosis, lumbar region M48.06 ; Gastroesophageal reflux disease without esophagitis K21.9 ; HSV (herpes simplex virus) infection B00.9 ; Mixed hyperlipidemia E78.2 and Anxiety F41.9 [facility] [id number] [place] [address] 16578133- 4509 Mar, [facility] [id number] [place] [address] 22912- 3196 Mar, [facility] [id number] [place] [address] 21394- 4076 Mar, [facility] [id number] [place] [address] 76996- 7606 February, Chronic pain G89.29 [facility] [id number] [place] [address] 07782 254 February, [facility] [id number] [place] [address] 78716 2546 Jan, Chronic pain G89.29 [facility] [id number] [place] [address] 96648 2546 Jan, Type 2 diabetes mellitus without complication E11.9 [facility] [id number] [place] [address] 05722 2544 Jan, [facility] [id number] [place] [address] 99557 2546 Jan, [facility] [id number] [place] [address] 94232 2546 Jan, [facility] [id number] [place] [address] 06852- 2544 Jan, Type 2 diabetes mellitus without complication [...] J01.00 and Encounter for Depo-Provera contraception Z30.42 [place] [id number] [place] [address] 03572- 3575 Dec, Chronic pain G89.29 [place] [id number] [place] [address] 50185- 7065 Dec, Abnormal ankle brachial index (BERNARDINO) R68.89 [place] [id number] [place] [address] 49808- 9161 Dec, [place] [id number] [place] [address] 91417- 4950 Dec, Routine gynecological examination Z01.419 ; Chronic [...] virus) infection B00.9 and Allergic rhinitis 477.9 [place] [id number] [place] [address] 60023- 1673 Nov, Chronic pain G89.29 [place] [id number] [place] [address] 32690- 8187 02 Nov, 2016 Chronic pain G89.29 ; [...] mucoid otitis media of both ears H65.113 [place] [id number] [place] [address] 81381- 5961 Oct, [place] [id number] [place] [address] 07548- 3758 Oct, Chronic pain G89.29 [place] [address] 16723- 8722 Oct, Chronic pain G89.29 [place] [address] 25292- 5908 Sep, Chronic pain G89.29 ; Type 2 diabetes mellitus without complication E11.9 ; Essential hypertension I10 ; Radiculopathy of lumbar region M54.16 ; Spinal stenosis, lumbar region M48.06 ; Gastroesophageal reflux disease without esophagitis K21.9 ; Encounter for surveillance of injectable contraceptive Z30.42 ; Bilateral cold feet R20.9 ; Pain of left foot M79.672 and Pain in right foot M79.671 [place] [address] 06292- 1337 Sep, [place] [id number] [place] [address] 90793- 8080 Aug, [place] [id number] [place] [address] 26598- 9888 Aug, [place] [id number] [place] [address] 55100- 3769 Aug, Chronic pain G89.29 ; Type 2 diabetes mellitus without complication E11.9 ; Essential hypertension I10 ; Rash and nonspecific skin eruption R21 and Upper respiratory infection, acute J06.9 [place] [id number] [place] [address] 79599- 2706 Aug, [place] [address] 92713- 3814 Aug, [facility] [id number] [place] [address] 16130- 6010 Jul, [facility] [address] 38727- 8731 Jul, Dysuria R30.0 ; Encounter for Depo-Provera contraception Z30.42 ; Herpes simplex B00.9 ; Nausea & vomiting R11.2 and Asthma J45.909 [facility] [address] 52168- 0374 Jun, Dysuria R30.0 [facility] [address] 52353- 0104 Jun, Dysuria R30.0 [facility] [address] 41538- 2502 15 Jun, 2016 [facility] [address] 18127- 1659 Jun, [facility] [address] 86088- 6951 May, [facility] [address] 75152- 0152 May, [facility] [id number] [place] [address] 45461- 2855 May, Chronic pain G89.29 ; Essential hypertension I10 ; Type 2 diabetes mellitus without complication E11.9 ; Edema of both feet R60.0 and Rash and nonspecific skin eruption R21 [facility] [id number] [place] [address] 19860- 6858 Apr, [facility] [address] 15163- 8483 Mar, Carpal tunnel syndrome, left upper limb G56.02 and Carpal tunnel syndrome, right upper limb G56.01 [facility] [address] 53161- 9969 Mar, [place] [id number] [place] [address] 02499- 3049 17 Mar, 2016 Encounter for Depo-Provera contraception Z30.42 [place] [id number] [place] [address] 61695- 5652 February, [place] [id number] [place] [address] 83025- 8465 February, [place] [address] 22113- 4348 February, Chronic pain G89.29 ; Essential hypertension I10 ; Type 2 diabetes mellitus without complication E11.9 ; HSV (herpes simplex virus) infection B00.9 ; Anxiety F41.9 ; Hypersomnia G47.10 ; Tobacco abuse Z72.0 ; Hand pain, left M79.642 ; Hand pain, right M79.641 ; Left foot pain M79.672 and Heart palpitations R00.2 [place] [id number] [place] [address] 18401- 3480 Jan, [place] [id number] [place] [address] 52480- 5901 Jan, [place] [id number] [place] [address] 36200- 2509 Jan, [place] [id number] [place] [address] 40067- 1623 15 Jan, 2016 [place] [id number] [place] [address] 09895- 1358 14 Jan, 2016 Upper respiratory infection J06.9 and Type 2 diabetes mellitus without complication E11.9 [place] [id number] [place] [address] 96372- 6804 Dec, [place] [id number] [place] [address] 91875- 0647 Dec, Chronic pain G89.29 ; Essential hypertension I10 ; Type 2 diabetes mellitus without complication E11.9 ; HSV (herpes simplex virus) infection B00.9 ; Anxiety F41.9 ; Upper respiratory infection J06.9 ; Hypersomnia G47.10 and Tobacco abuse Z72.0 [place] [address] 13562- 7708 Dec, Encounter for Depo-Provera contraception Z30.42 [place] [address] 18615- 4998 Dec, [place] [address] 40797- 4320 Dec, Chronic pain G89.29 ; Sinusitis J32.9 ; Snoring R06.83 and Daytime hypersomnia G47.19 [place] [address] 24697- 4987 Nov, HSV (herpes simplex virus) infection B00.9 ; Encounter for Papanicolaou smear for cervical cancer screening Z12.4 ; Screening for STD ( sexually transmitted disease) Z11.3 and Bartholin's gland cyst N75.0 [place] [address] 64835- 4412 Nov, [place] [address] 93469- 4717 Nov, [place] [address] 75010- 9426 Nov, Essential hypertension I10 ; Type 2 diabetes mellitus without complication E11.9 ; HSV (herpes simplex virus) infection B00.9 ; Spinal stenosis, lumbar region M48.06 and Vaginal yeast infection B37.3 [place] [address] 50424- 9769 Nov, [place] [address] 28437- 5966 Nov, [place] [address] 41724- 0468 Oct, [place] [id number] [place] [address] 98096- 8801 26 Oct, 2015 HSV (herpes simplex virus) infection B00.9 ; Yeast infection B37.9 ; Change in bowel habit R19.4 ; Nausea & vomiting R11.2 and Gastroesophageal reflux disease without esophagitis K21.9 [place] [address] 77174- 5055 Oct, [place] [address] 01083- 5848 Oct, Type 2 diabetes mellitus without complication E11.9 ; Essential hypertension I10 and Acute maxillary sinusitis, recurrence not specified J01.[address] 40512- 7798 Oct, [address] 61185- 7732 Oct, [address] 32872- 4773 Oct, Exposure to head lice Z20.7 ; Blood glucose abnormal R73.09 ; Boil of buttock L02.32 and Type 2 diabetes mellitus without complication E11.9 [place] [id number] [place] [address] 94868- 2623 Oct, [place] [id number] [place] [address] 27923- 6933 Sep, [place] [address] 46170- 0363 Sep, [address] 96450- 2180 Aug, Encounter for Depo-Provera contraception Z30.42 [place] [id number] [place] [address] 42584- 5223 Aug, Anxiety F41.9 ; Spinal stenosis, lumbar region M48.06 ; Radiculopathy of lumbar region M54.16 ; Asthma J45.909 ; GERD (gastroesophageal reflux disease) K21.9 ; Essential hypertension I10 and Long-term use of high- risk medication Z79.899 [place] [address] 91609- 6350 Jul, [place] [address] 86759- 6067 Jun, Hemorrhoid 455.[address] 01867- 7575 Jun, [address] 09775- 4145 Jun, Anxiety 300.00 ; Asthma 493.90 ; Hyperhidrosis 705.21 ; Chest discomfort 786.59 and Upper respiratory infection 465.[address] 96876- 7480 May, Encounter for Depo-Provera contraception V25.[address] 23932- 1149 May, [address] 72028- 4633 May, [address] 08922- 1793 May, Spinal stenosis of lumbar region with radiculopathy 724.02 ; Bulging of intervertebral disc between L4 and L5 722.10 ; GERD ( gastroesophageal reflux disease) 530.81 ; Chronic pain 338.29 ; Declining mobility 799.89 and Epigastric pain 789.[address] 20434- 0098 Apr, [address] 94811- 4887 Apr, Nausea 787.02 and Heart burn 787.[address] 85004- 7573 Mar, Lumbago 724.2 ; Vitamin D deficiency 268.9 ; Anxiety 300.00 ; Allergic rhinitis 477.9 and Contraceptive surveillance V25.40 [facility] [address] [address]01 February, 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 ; Chronic pain 338.29 and Vaginal discharge 623.5 [facility] [id number] [place] [address] 213727- 5992 February, [facility] [id number] [place] [address] 420407- 9832 February, [facility] [id number] [place] [address] 99839- 5870 Jan, [facility] [id number] [place] [address] 90963- 3291 Jan, [facility] [id number] [place] [address] 56731- 1999 Dec, [facility] [address] [address]- 7346 Dec, [facility] [id number] [place] [address] 49824- 3226 Dec, [facility] [address] [place] [address]- 9138 Dec, [facility] [id number] [place] [address] 76557- 7577 Dec, [facility] [address] [address]- 3685 Dec, [facility] [id number] [place] [address] 756828- 1807 Dec, [facility] [address]- 7198 Dec, [facility] [id number] [place] [address] 99462- 8170 Dec, [facility] [place] [facility] [address] [id number] [place] [address]- 2393 Dec, [facility] [place] [facility] [address] [id number] [place] [address]- 8127 Dec, 2014 [facility] [place] [facility] [address] [facility] [id number] [place] [address]- 4954 Dec, [facility] [place] [facility] [address] [id number] [place] [address]- 3409 Nov, 2014 [facility] [place] [facility] [address] [id number] [place] [address]- 4531 27 Nov, 2014 [facility] [place] [facility] [address] [facility] [id number] [place] [address]- 5045 24 Nov, 2014 [facility] [place] [facility] [address] [facility] [id number] [place] [address]- 5710 24 Nov, 2014 [facility] [place] [facility] [address] [facility] [id number] [place] [address]- 2067 23 Nov, 2014 [facility] [place] [facility] [address] [facility] [id number] [place] [address]- 1316 23 Nov, 2014 [facility] [place] [facility] [address] [facility] [id number] [place] [address]- 2210 16 Nov, 2014 [facility] [place] [facility] [address] [facility] [id number] [place] [address]- 2546 16 Nov, 2014 [facility] [place] [facility] [address] [facility] [id number] [place] [address]- 1478 13 Nov, 2014 [facility] [place] [facility] [address] [facility] [id number] [place] [address]- 1427 13 Nov, 2014 [facility] [place] [facility] [address] [facility] [id number] [place] [address]- 6506 13 Nov, 2014 [facility] [place] [facility] [address] [facility] [id number] [place] [address]- 8778 Nov, 2014 [facility] [place] [facility] [address] [id number] [place] [address]- 0458 Nov, 2014 [facility] [place] [facility] [address] [id number] [place] [address]- 4746 Nov, 2014 [facility] [place] [facility] [address] [facility] [id number] [place] [address] Nov, 2014 [facility] [place] [facility] [address] [facility] [id number] [place] [address] Nov, 2014 [facility] [place] [facility] [address] [id number] [place] [address] Nov, 2014 [facility] [place] [facility] [address] [facility] [id number] [place] [address] Nov, 2014 [facility] [place] [facility] [address] [facility] [id number] [place] [address] Nov, 2014 [facility] [place] [facility] [address] [facility] [id number] [place] [address] Nov, 2014 [facility] [place] [facility] [address] [facility] [id number] [place] [address] Nov, 2014 [facility] [place] [facility] [address] [facility] [id number] [place] [address] Nov, 2014 [facility] [place] [facility] [address] [facility] [id number] [place] [address] Nov, 2014 [facility] [place] [facility] [address] [facility] [id number] [place] [address] Oct, [facility] [place] [facility] [address] [facility] [id number] [place] [address] Oct, [facility] [place] [facility] [address] [facility] [id number] [place] [address] Oct, [facility] [place] [facility] [address] [facility] [id number] [place] [address] Oct, [facility] [place] [facility] [address] [id number] [place] [address] Oct, [facility] [place] [facility] [address] [id number] [place] [address] Oct, [facility] [place] [facility] [address] [id number] [place] [address] Oct, [facility] [place] [facility] [address] [id number] [place] [address] Oct, [facility] [place] [facility] [address] [id number] [place] [address] Oct, [facility] [place] [facility] [address] [id number] [place] [address] Oct, [facility] [place] [facility] [address] [id number] [place] [address] Oct, [facility] [place] [facility] [address] [id number] [place] [address] Oct, [facility] [place] [facility] [address] [id number] [place] [address] Oct, [facility] [place] [facility] [address] [id number] [place] [address] 1994 Oct, [facility] [place] [facility] [address] [id number] [place] [address] Oct, [facility] [place] [facility] [address] [id number] [place] [address] Oct, [facility] [place] [facility] [address] [id number] [place] [address] 9644 Oct, [facility] [place] [facility] [address] [id number] [place] [address]- 2423 Oct, [facility] [place] [facility] [address] [id number] [place] [address] 9878 Oct, [facility] [place] [facility] [address] [id number] [place] [address] 9506 Oct, [facility] [place] [facility] [address] [id number] [place] [address] Oct, [facility] [place] [facility] [address] [id number] [place] [address] 8066 Sep, [facility] [place] [facility] [address] [id number] [place] [address] 29 Sep, 2014 [facility] [place] [facility] [address] [id number] [place] [address] 18 Sep, 2014 [facility] [place] [facility] [address] [id number] [place] [address]- 5740 18 Sep, 2014 [facility] [place] [facility] [address] [id number] [place] [address]- 1996 Sep, [facility] [place] [facility] [address] [id number] [place] [address]- 3130 17 Sep, 2014 [facility] [place] [facility] [address] [id number] [place] [address]- 8518 15 Sep, 2014 [facility] [place] [facility] [address] [id number] [place] [address]- 8341 15 Sep, 2014 [facility] [place] [facility] [address] [id number] [place] [address]- 7193 12 Sep, 2014 [facility] [place] [facility] [address] [id number] [place] [address]- 4919 12 Sep, 2014 [facility] [place] [facility] [address] [id number], [place] [address]- 4[address] 11 Sep, 2014 [facility] [place] [facility] [address] [id number] [place] [address]- 235[address] Sep, [facility] [place] [facility] [address] [id number] [place] [address]- 8091 11 Sep, 2014 [facility] [place] [facility] [address] [id number] [place] [address]- 2179 11 Sep, 2014 [facility] [place] [facility] [address] [id number] [place] [address]- 7178 Sep, [facility] [place] [facility] [address] [id number] [place] [address] 1957 Sep, [facility] [place] [facility] [address] [id number] [place] [address]- 5374 Sep, [facility] [place] [facility] [address] [id number] [place] [address] 1964 Sep, [facility] [place] [facility] [address] [id number] [place] [address]- 6079 Sep, [facility] [place] [facility] [address] [id number] [place] [address]- 9930 Sep, [facility] [place] [facility] [address] [id number] [place] [address]- 2478 Aug, [facility] [place] [facility] [address] [id number] [place] [address]- 3101 Aug, [facility] [place] [facility] [address] [id number] [place] [address]- 6377 Aug, [facility] [place] [facility] [address] [id number] [place] [address]- 0021 Aug, [facility] [place] [facility] [address] [facility] [id number] [place] [address]- 6543 Aug, [facility] [place] [facility] [address] [id number] [place] [address]- 4434 Aug, [facility] [place] [facility] [address] [id number] [place] [address]- 0585 Aug, [facility] [place] [facility] [address] [id number] [place] [address]- 4024 Aug, [facility] [place] [facility] [address] [id number] [place] [address]- 8101 Aug, [facility] [place] [facility] [address] [id number] [place] [address]- 0897 Jul, [facility] [place] [facility] [address] [id number] [place] [address]- 6650 Jul, 2013 [facility] [place] [facility] [address] [id number] [place] [address]- 4741 Jul, 2013 [facility] [place] [facility] [address] [id number] [place] [address]- 9425 Jul, 2013 [facility] [place] [facility] [address] [id number] [place] [address]- 5517 Jul, 2013 [facility] [place] [facility] [address] [id number] [place] [address]- 9702 Jul, 2013 [facility] [place] [facility] [address] [id number] [place] [address]- 4465 Jul, 2013 [facility] [place] [facility] [address] [id number] [place] [address]- 7232 Jul, 2013 [facility] [place] [facility] [address] [id number] [place] [address]- 9563 Jul, 2013 [facility] [place] [facility] [address] [id number] [place] [address]- 2211 Jul, [facility] [place] [facility] [address] [id number] [place] [address]- 3927 Jul, 2013 [facility] [place] [facility] [address] [id number] [place] [address]- 4769 Jul, [facility] [place] [facility] [address] [id number], [place] [address]- 6633 Jul, 2013 [facility] [place] [facility] [address] [id number] [place] [address]- 4724 Jul, [facility] [place] [facility] [address] [id number] [place] [address]- 2577 30 Jun, 2013 [facility] [place] [facility] [address] [id number] [place] [address] 30 Jun, 2013 [facility] [place] [facility] [address] [id number] [place] [address]- 8719 25 Sep, 2013 [facility] [place] [facility] [address] [id number] [place] [address] 2546 25 Sep, 2013 [facility] [place] [facility] [address] [id number] [place] [address] 2546 25 Sep, 2013 [facility] [place] [facility] [address] [id number] [place] [address] 2546 25 Sep, 2013 [facility] [place] [facility] [address] [id number] [place] [address] 2545 24 Sep, 2013 [facility] [place] [facility] [address] [id number] [place] [address]- 5872 24 Sep, 2013 [facility] [place] [facility] [address] [id number] [place] [address]- 4592 22 Jun, 2013 [facility] [place] [facility] [address] [id number] [place] [address]- 1910 22 Jun, 2013 [facility] [place] [facility] [address] [id number] [place] [address]- 4690 17 Sep, 2013 [facility] [place] [facility] [address] [id number] [place] [address] 2545 17 Sep, 2013 [facility] [place] [facility] [address] [id number] [place] [address] 2545 16 Sep, 2013 [facility] [place] [facility] [address] [id number], [place] [address] 2541 16 Sep, 2013 [facility] [place] [facility] [address] [id number], [place] [address]- 2544 15 Sep, 2013 [facility] [place] [facility] [address] [id number] [place] [address] 2545 15 Sep, 2013 [facility] [place] [facility] [address] [id number] [place] [address] 2545 12 Sep, 2013 [facility] [place] [facility] [address] [id number] [place] [address] 2547 12 Sep, 2013 [facility] [place] [facility] [address] [id number] [place] [address]- 9693 11 Jun, 2013 [facility] [place] [facility] [address] [id number] [place] [address]- 5446 11 Jun, 2013 [facility] [place] [facility] [address] [id number] [place] [address]- 9806 Jun, 2013 [facility] [place] [facility] [address] [id number] [place] [address]- 0066 Jun, 2013 [facility] [place] [facility] [address] [id number] [place] [address]- 8060 Jun, 2013 [facility] [place] [facility] [address] [id number] [place] [address]- 8837 Jun, 2013 [facility] [place] [facility] [address] [id number] [place] [address]- 4516 Jun, 2013 [facility] [place] [facility] [address] [id number] [place] [address]- 6090 Jun, 2013 [facility] [place] [facility] [address] [id number] [place] [address]- 4639 May, [facility] [place] [facility] [address] [id number] [place] [address]- 0253 May, [facility] [place] [facility] [address] [id number] [place] [address]- 1866 May, [facility] [place] [facility] [address] [id number] [place] [address]- 2063 May, [facility] [place] [facility] [address] [id number] [place] [address]- 2544 May, [facility] [place] [facility] [address] [id number] [place] [address]- 6932 May, [facility] [place] [facility] [address] [id number] [place] [address]- 2556 May, [facility] [place] [facility] [address] [id number] [place] [address]- 8911 May, [facility] [place] [facility] [address] [id number] [place] [address]- 4717 May, [facility] [place] [facility] [address] [id number] [place] [address]- 2692 May, [facility] [place] [facility] [address] [id number] [place] [address]- 6798 May, [facility] [place] [facility] [address] [id number] [place] [address]- 0208 May, [facility] [place] [facility] [address] [id number] [place] [address]- 7078 May, [facility] [place] [facility] [address] [id number] [place] [address]- 8996 Apr, [facility] [place] [facility] [address] [id number] [place] [address]- 9524 Apr, [facility] [place] [facility] [address] [id number] [place] [address]- 1264 Apr, [facility] [place] [facility] [address] [id number] [place] [address]- 3558 Apr, [facility] [place] [facility] [address] [id number] [place] [address]- 7379 Apr, [facility] [place] [facility] [address] [id number] [place] [address]- 8257 Mar, [facility] [place] [facility] [address] [id number] [place] [address]- 9729 Mar, [facility] [place] [facility] [address] [id number] [place] [address]- 9820 Mar, [facility] [place] [facility] [address] [id number] [place] [address]- 6562 February, [facility] [place] [facility] [address] [id number] [place] [address]- 2991 February, [facility] [place] [facility] [address] [id number] [place] [address]- 0151 February, [facility] [address] [id number] [place] [address]- 9380 February, [facility] [place] [facility] [address] [id number] [place] [address]- 0452 February, [facility] [place] [facility] [address] [id number] [place] [address]- 0147 February, [facility] [place] [facility] [address] [id number] [place] [address]- 9820 February, [facility] [place] [facility] [address] [id number] [place] [address]- 9069 February, [facility] [place] [facility] [address] [id number] [place] [address]- 8097 February, [facility] [address] [id number] [place] [address]- 8438 Jan, [facility] [place] [facility] [address] [id number] [place] [address]- 3370 Jan, [facility] [place] [facility] [address] [id number] [place] [address]- 3313 Jan, [facility] [place] [facility] [address] [id number] [place] [address]- 4026 Jan, [facility] [place] [facility] [address] [id number] [place] [address]- 2884 Jan, [facility] [place] [facility] [address] [id number] [place] [address]- 4412 Dec, [facility] [place] [facility] [address] [id number] [place] [address]- 0044 Dec, [facility] [place] [facility] [address] [id number] [place] [address]- 7365 Dec, [facility] [place] [facility] [address] [id number] [place] [address]- 1210 Dec, [facility] [place] [facility] [address] [id number] [place] [address]- 5495 Dec, [facility] [place] [facility] [address] [id number] [place] [address]- 1218 Nov, [facility] [place] [facility] [address] [id number] [place] [address]- 2981 Nov, [facility] [place] [facility] [address] [id number] [place] [address]- 1148 Nov, [facility] [place] [facility] [address] [id number] [place] [address]- 9539 Nov, [facility] [place] [facility] [address] [id number] [place] [address]- 7680 Oct, [facility] [place] [facility] [address] [id number] [place] [address]- 8794 Oct, [facility] [place] [facility] [address] [id number] [place] [address]- 0839 Oct, [facility] [place] [facility] [address] [id number] [place] [address]- 0849 Oct, [facility] [place] [facility] [address] [id number] [place] [address]- 3341 Oct, [facility] [place] [facility] [address] [id number] [place] [address]- 0970 Oct, [facility] [place] [facility] [address] [id number] [place] [address]- 8221 Oct, [facility] [place] [facility] [address] [id number] [place] [address]- 6911 Oct, [facility] [place] [facility] [address] [id number] [place] [address]- 0311 Oct, [facility] [place] [facility] [address] [id number] [place] [address]- 6913 Oct, [facility] [place] [facility] [address] [id number], [place] [address]- 7448 Aug, [facility] [address] [id number] [place] [address]- 6590 Aug, [facility] [place] [facility] [address] [id number], [place] [address]- 5011 Jul, [facility] [place] [facility] [address] [id number] [place] [address]- 9981 Jul, [facility] [place] [facility] [address] [id number], [place] [address]- 0675 Jul, [facility] [place] [facility] [address] [id number] [place] 1617 Jul, [facility] [place] [facility] [address] [facility] [id number] [place] [address]- 9004 Jul, [facility] [place] [facility] [address] [facility] [id number], [place] [address]- 2248 Jul, [facility] [place] [facility] [address] [id number], [place] [address]- 4662 Apr, [facility] [place] [facility] [address] [id number], [place] [address]- 4931 Dec, [facility] [place] [facility] [address] [facility] [id number], [place] [address]- 7435 Nov, [facility] [place] [facility] [address] [id number], [place] [address]- 9122 Nov, [facility] [place] [facility] [address] [id number], [place] [address] 2543 Nov, [facility] [place] [facility] [address] [id number], [place] [address]- 6858 Oct, [facility] [place] [facility] [address] [id number], [place] [address]- 3629 Sep, [facility] [place] [facility] [address] [facility] [id number], [place] [address]- 4176 Sep, [facility] [place] [facility] [address] [id number] [place] [address]- 9186 Sep, [facility] [place] [facility] [address] [id number] [place] [address]346 Sep, [facility] [place] [facility] [address] [id number] [place] [address] 2546 Aug, [facility] [place] [facility] [address] [id number] [place] [address]- 1066 Aug, [facility] [place] [facility] [address] [id number] [place] [address]- 8346 Jul, [facility] [place] [facility] [address] [id number] [place] [address]- 1366 Jul, [facility] [place] [facility] [address] [id number] [place] [address]- 6937 28 Jun, 2012 [facility] [place] [facility] [address] [id number] [place] [address]- 8353 26 Jun, 2012 [facility] [place] [facility] [address] [id number] [place] [address]- 7919 24 Jun, 2012 [facility] [place] [facility] [address] [id number] [place] [address] 2545 24 Jun, 2012 [facility] [place] [facility] [address] [id number] [place] [address]- 7024 12 Jun, 2012 [facility] [place] [facility] [address] [id number] [place] [address]- 5370 31 Apr, 2012 [facility] [place] [facility] [address] [id number] [place] [address] 2549 30 Apr, 2012 [facility] [place] [facility] [address] [id number] [place] [address] 2546 24 Apr, 2012 [facility] [place] [facility] [address] [id number] [place] [address] 2546 Mar, [facility] [place] [facility] [address] [id number] [place] [address]- 2413 Mar, [facility] [address] [id number] [place] [address]- 6663 Mar, [facility] [place] [facility] [address] [id number] [place] [address]- 2409 February, [facility] [place] [facility] [address] [id number] [place] [address]- 4668 Jan, [facility] [place] [facility] [address] [id number] [place] [address]- 5451 Dec, [facility] [place] [facility] [address] [id number] [place] [address]- 1033 Dec, [facility] [place] [facility] [address] [id number] [place] [address]- 8778 Dec, [facility] [place] [facility] [address] [id number] [place] [address]- 3996 Dec, [facility] [place] [facility] [address] [id number] [place] [address]- 1631 Dec, [facility] [place] [facility] [address] [id number] [place] [address]- 8130 Nov, [facility] [place] [facility] [address] [id number] [place] [address]- 2441 Nov, [facility] [place] [facility] [address] [id number] [place] [address]- 1166 Oct, [facility] [place] [facility] [address] [id number], [place] [address]- 3093 Oct, [facility] [place] [facility] [address] [id number] [place] [address]- 8156 Oct, [facility] [place] [facility] [address] [id number] [place] [address]- 1086 Sep, [facility] [place] [facility] [address] [id number] [place] [address]- 4766 Aug, [facility] [place] [facility] [address] [id number] [place] [address]- 9054 10 Aug, 2011 [facility] [address] [id number] [place] [address]- 2913 28 Jul, 2011 [facility] [address] [id number] [place] [address]- 6176 24 Jul, 2011 [facility] [address] [id number] [place] [address]- 8646 19 Jul, 2011 [facility] [address] [id number] [place] [address]- 2543 13 Jan, 2011 [facility] [id number] [place] [address], [place] [address]- 5457 29 Sep, 2010 [facility] [address] [id number] [place] [address]- 1711 27 Sep, 2010 [facility] [address] [id number] [place] [address]- 2718 20 Sep, 2010 [facility] [address] [id number] [place] [address]- 6206 20 Sep, 2010 [facility] [address] [id number] [place] [address]- 7296 06 Sep, 2010 [facility] [address] [id number] [place] [address]- 2179 16 Aug, 2010 [facility] [place] [facility] [address] [id number] [place] [address] 2541 16 Aug, 2010 [facility] [place] [facility] [address] [id number] [place] [address]- 2540 08 Aug, 2010 [facility] [place] [facility] [address] [id number] [place] [address] 19 Jul, 2010 [facility] [place] [facility] [address] [id number] [place] [address] 19 Jul, 2010 [facility] [place] [facility] [address] [id number] [place] [address] Jul, [facility] [address] [id number] [address] May, [facility] [address] [id number] [address] Apr, [facility] [address] [id number], [place] [address] Dec, [facility] [id number] [place] [address] Sep, [facility] [address] [id number], [place] [address] Sep, [facility] [id number] [address] Aug, [facility] [id number] [place] [address] Aug, [facility] [address] [id number], [place] [address] Jul, [facility] [address] [id number], [place] [address] Mar, IMMUNIZATIONS No Known Immunizations SOCIAL HISTORY Never Assessed REASON FOR VISIT Controlled Med Refill 05/09 PLAN OF CARE VITAL SIGNS MEDICATIONS Medication Instructions Dosage Frequency Start Date End Date Duration Status MS Contin 15 MG Orally every 12 hrs as needed must last 28 days 1 tablet Apr, Active Hydrocodone-Acetaminophen 5-325 MG Orally four times a day as needed for pain. Must last 28 days. 1 tablet Apr, Active Clorazepate Dipotassium 15 MG Orally 3 times a day prn must last 28 days. 1 tablet Active RESULTS [...]
--- OUTSIDE RECORDS SUMMARY | 2018-10-08 20:08 | XMS REPORT ---
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 Active 831932326 Problem Edema of both feet R60.0 Active 792197226 Problem Tobacco abuse Z72.0 Active 81992838 Problem Chronic migraine G43.709 Active 36354481 Problem Mixed hyperlipidemia E78.2 Active 956481369 Problem Spinal stenosis, lumbar region M48.06 Active 63177523 Problem Anxiety F41.9 Active 13745592 Problem Radiculopathy of lumbar region M54.16 Active 649010831 Problem Bulging lumbar disc M51.26 Active 290507161 Problem Asthma J45.909 Active 938635696 Problem Essential hypertension I10 Active 28240492 ALLERGIES No Information ENCOUNTERS Encounter Location Date Diagnosis [facility] [id number], [place] [address] 14 Dec, 2017 [facility] [id number] [place] [address] 39040- 1092 Dec, Gastroesophageal reflux disease without esophagitis K21.9 and Anxiety F41.9 [facility] [id number], [place] [address] 4714 Dec, Essential hypertension I10 ; Mixed hyperlipidemia E78.2 ; Type 2 diabetes mellitus with diabetic neuropathy, unspecified E11.40 ; 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 term care 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 Z79.4 ; Chronic pain G89.29 ; HSV (herpes simplex virus) infection B00.9 ; Anxiety F41.9 and Gastroesophageal reflux disease without esophagitis K21.9 [id number] [place] [address] 17364- 8058 Dec, Chronic pain G89.29 and Chronic migraine G43.[address] 14612- 3166 Nov, [address] 90467- 8124 Nov, Essential hypertension I10 and Chronic pain G89.[address] 47170- 1801 Nov, Chronic pain G89.29 ; Essential hypertension I10 and Type 2 diabetes mellitus without complication E11.[address] 15704- 3015 Oct, Chronic pain G89.[address] 06242- 9657 Oct, [id number] [place] [address] 71856- 5472 Sep, Type 2 diabetes mellitus without complication E11.9 ; Essential hypertension I10 ; long term care 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 (current) use of insulin Z79.4 ; Chronic migraine G43.709 ; Chronic pain G89.29 and Acute non-recurrent maxillary sinusitis J01.00 [id number] [place] [address] 11070- 6898 Sep, Encounter for Depo-Provera contraception Z30.[address] 98662- 0761 Sep, Chronic pain G89.29 and Radiculopathy of lumbar region M54.[address] 74359- 8002 Sep, [facility] [address], [place] [address] 3262 Sep, [facility] [id number] [place] [address] 97638- 0399 Aug, Type 2 diabetes mellitus without complication E11.9 [facility] [address], [place] [address] 0899 Aug, [facility] [id number] [place] [address] 33820- 4719 Aug, Radiculopathy of lumbar region M54.16 and Chronic pain G89.29 [facility] [id number] [place] [address] 89208- 1764 Aug, Type 2 diabetes mellitus without complication E11.9 [facility] [address] [place] [address] 49049- 6379 Aug, Type 2 diabetes mellitus without complication E11.9 [facility] [address] [place] [address] 14694- 5586 Jul, Type 2 diabetes mellitus without complication E11.9 [facility] [address] [place] [address] 19257- 4196 Jul, [facility] [address], [place] [address]- 4841 Jul, Chronic pain G89.29 [facility] [address], [place] [address]- 9263 Jul, [facility] [address], [place] [address]- 0845 Jul, [facility] [address], [place] [address]- 7146 Jul, Type 2 diabetes mellitus without complication E11.9 [facility] [address], [place] [address]- 0441 Jul, [facility] [id number] [place] [address] 33810- 6607 12 Jul, 2017 Type 2 diabetes mellitus without complication E11.9 [facility] [address] 34339- 5210 11 Jul, 2017 [facility] [address] 76185- 1527 Jul, [place] [address] 97219- 3131 Jul, [facility] [address] 66082- 4289 27 Jun, 2017 Type 2 diabetes mellitus without complication E11.9 [place] [address] 20931- 5338 26 Jun, 2017 Chronic migraine G43.709 ; Type 2 diabetes mellitus without complication E11.9 ; Calculus of right kidney N20.0 ; Yeast dermatitis B37.2 and HSV (herpes simplex virus) infection B00.9 [place] [id number] [place] [address] 07813- 8581 Jun, Type 2 diabetes mellitus without complication E11.9 [place] [id number] [place] [address] 17476- 0672 Jun, [place] [id number] [place] [address] 63965- 4831 Jun, Radiculopathy of lumbar region M54.16 and Chronic pain G89.29 [place] [id number] [place] [address] 71401- 4931 Jun, Encounter for Depo-Provera contraception Z30.42 [place] [address] 99569- 4677 Jun, Type 2 diabetes mellitus without complication E11.9 [facility] [id number] [place] [address] 42240- 1693 10 Jun, 2017 [facility] [address] [place] [address] May, Acute nasopharyngitis (common cold) J00 [place] [address] 64812- 3982 May, Chronic pain G89.29 [place] [address] 01575- 4089 May, Headache following lumbar puncture G97.1 [place] [address] 77981- 7599 May, Radiculopathy of lumbar region M54.16 [place] [address] 02549- 6705 Apr, [place] [address] 34355- 3027 Apr, Type 2 diabetes mellitus without complication E11.9 ; Chronic pain G89.29 ; Essential hypertension I10 ; Radiculopathy of lumbar region M54.16 ; Spinal stenosis, lumbar region M48.06 ; Gastroesophageal reflux disease without esophagitis K21.9 ; HSV (herpes simplex virus) infection B00.9 ; Mixed hyperlipidemia E78.2 ; Anxiety F41.9 and Asthma J45.909 [id number] [place] [address] 80062- 9886 Apr, Encounter for Depo-Provera contraception Z30.42 [place] [id number] [place] [address] 07240- 7419 Apr, Chronic pain G89.29 and Anxiety F41.9 [place] [id number] [place] [address] 25929- 2140 Mar, [place] [address] 45127- 3664 Mar, [place] [address] 85923- 5075 Mar, Mixed hyperlipidemia E78.2 [place] [id number], [place] [address]- 6431 Mar, Type 2 diabetes mellitus without complication E11.9 ; Chronic pain G89.29 ; Essential hypertension I10 ; Radiculopathy of lumbar region M54.16 ; Spinal stenosis, lumbar region M48.06 ; Gastroesophageal reflux disease without esophagitis K21.9 ; HSV (herpes simplex virus) infection B00.9 ; Mixed hyperlipidemia E78.2 and Anxiety F41.9 [facility] [id number] [place] [address] 28941- 8675 Mar, [facility] [id number] [place] [address] 27797- 1106 Mar, [facility] [id number] [place] [address] 94809- 0316 Mar, [facility] [id number] [place] [address] 50776- 2308 February, Chronic pain G89.29 [facility] [id number] [place] [address] 86538- 1615 February, [facility] [id number] [place] [address] 60739- 5030 Jan, Chronic pain G89.29 [facility] [id number] [place] [address] 88329- 4771 Jan, Type 2 diabetes mellitus without complication E11.9 [facility] [id number] [place] [address] 50845- 1911 Jan, [facility] [id number] [place] [address] 21623- 7464 Jan, [facility] [id number] [place] [address] 64631- 4253 Jan, [facility] [id number] [place] [address] 29453- 3787 Jan, Type 2 diabetes mellitus without complication [...] J01.00 and Encounter for Depo-Provera contraception Z30.42 [place] [id number] [place] [address] 47097- 0190 Dec, Chronic pain G89.29 [place] [address] 27158- 9043 Dec, Abnormal ankle brachial index (BERNARDINO) R68.89 [place] [id number] [place] [address] 23826- 1822 Dec, [place] [address] 91325- 8667 Dec, Routine gynecological examination Z01.419 ; Chronic [...] virus) infection B00.9 and Allergic rhinitis 477.9 [place] [id number] [place] [address] 66490- 5013 Nov, Chronic pain G89.29 [place] [id number] [place] [address] 62710- 9676 02 Nov, 2016 Chronic pain G89.29 ; [...] mucoid otitis media of both ears H65.113 [place] [id number] [place] [address] 64141- 1238 Oct, [place] [id number] [place] [address] 77820- 7899 Oct, Chronic pain G89.29 [place] [address] 54030- 7297 Oct, Chronic pain G89.29 [place] [id number] [place] [address] 92064- 3560 Sep, Chronic pain G89.29 ; Type 2 diabetes mellitus without complication E11.9 ; Essential hypertension I10 ; Radiculopathy of lumbar region M54.16 ; Spinal stenosis, lumbar region M48.06 ; Gastroesophageal reflux disease without esophagitis K21.9 ; Encounter for surveillance of injectable contraceptive Z30.42 ; Bilateral cold feet R20.9 ; Pain of left foot M79.672 and Pain in right foot M79.671 [place] [id number] [place] [address] 06191- 1616 Sep, [place] [id number] [place] [address] 33758- 0205 Aug, [place] [id number] [place] [address] 77371- 6614 Aug, [place] [address] 21703- 0894 Aug, Chronic pain G89.29 ; Type 2 diabetes mellitus without complication E11.9 ; Essential hypertension I10 ; Rash and nonspecific skin eruption R21 and Upper respiratory infection, acute J06.9 [place] [id number] [place] [address] 04217- 9874 Aug, [place] [id number] [place] [address] 81482- 2101 Aug, [place] [id number] [place] [address] 92863- 1439 Jul, [facility] [address] 59800- 2104 Jul, Dysuria R30.0 ; Encounter for Depo-Provera contraception Z30.42 ; Herpes simplex B00.9 ; Nausea & vomiting R11.2 and Asthma J45.909 [facility] [address] 07506- 3399 Jun, Dysuria R30.0 [facility] [address] 66506- 3954 Jun, Dysuria R30.0 [facility] [id number] [place] [address] 54849- 3612 15 Jun, 2016 [facility] [address] 63703- 2158 Jun, [facility] [id number] [place] [address] 37061- 4318 May, [facility] [address] 73042- 5154 May, [facility] [id number] [place] [address] 90265- 6508 May, Chronic pain G89.29 ; Essential hypertension I10 ; Type 2 diabetes mellitus without complication E11.9 ; Edema of both feet R60.0 and Rash and nonspecific skin eruption R21 [facility] [id number] [place] [address] 58992- 0791 Apr, [facility] [address] 82025- 0559 Mar, Carpal tunnel syndrome, left upper limb G56.02 and Carpal tunnel syndrome, right upper limb G56.01 [facility] [id number] [place] [address] 32316- 8580 Mar, [place] [id number] [place] [address] 72644- 2804 Mar, Encounter for Depo-Provera contraception Z30.42 [place] [id number] [place] [address] 21094- 2785 February, [place] [id number] [place] [address] 60726- 4082 February, [place] [id number] [place] [address] 19826- 3117 February, Chronic pain G89.29 ; Essential hypertension I10 ; Type 2 diabetes mellitus without complication E11.9 ; HSV (herpes simplex virus) infection B00.9 ; Anxiety F41.9 ; Hypersomnia G47.10 ; Tobacco abuse Z72.0 ; Hand pain, left M79.642 ; Hand pain, right M79.641 ; Left foot pain M79.672 and Heart palpitations R00.2 [place] [id number] [place] [address] 72092- 3068 Jan, [place] [id number] [place] [address] 96489- 8320 Jan, [place] [id number] [place] [address] 04201- 2463 Jan, [place] [id number] [place] [address] 78427- 2643 Jan, [place] [id number] [place] [address] 89611- 9249 14 Jan, 2016 Upper respiratory infection J06.9 and Type 2 diabetes mellitus without complication E11.9 [place] [id number] [place] [address] 64925- 9963 Dec, [place] [id number] [place] [address] 81195- 0344 Dec, Chronic pain G89.29 ; Essential hypertension I10 ; Type 2 diabetes mellitus without complication E11.9 ; HSV (herpes simplex virus) infection B00.9 ; Anxiety F41.9 ; Upper respiratory infection J06.9 ; Hypersomnia G47.10 and Tobacco abuse Z72.0 [place] [address] 15277- 8275 17 Dec, 2015 Encounter for Depo-Provera contraception Z30.42 [place] [address] 88603- 1512 Dec, [place] [address] 83075- 7162 Dec, Chronic pain G89.29 ; Sinusitis J32.9 ; Snoring R06.83 and Daytime hypersomnia G47.19 [place] [address] 76084- 4140 Nov, HSV (herpes simplex virus) infection B00.9 ; Encounter for Papanicolaou smear for cervical cancer screening Z12.4 ; Screening for STD ( sexually transmitted disease) Z11.3 and Bartholin's gland cyst N75.0 [place] [id number] [place] [address] 53681- 2466 Nov, [place] [address] 16106- 2661 Nov, [place] [id number] [place] [address] 30393- 0482 Nov, Essential hypertension I10 ; Type 2 diabetes mellitus without complication E11.9 ; HSV (herpes simplex virus) infection B00.9 ; Spinal stenosis, lumbar region M48.06 and Vaginal yeast infection B37.3 [place] [id number] [place] [address] 11513- 7538 Nov, [place] [address] 20759- 3042 Nov, [place] [id number] [place] [address] 92672- 0453 Oct, [place] [id number] [place] [address] 17102- 3444 26 Oct, 2015 HSV (herpes simplex virus) infection B00.9 ; Yeast infection B37.9 ; Change in bowel habit R19.4 ; Nausea & vomiting R11.2 and Gastroesophageal reflux disease without esophagitis K21.9 [place] [address] 34233- 1102 Oct, [address] 95429- 4694 Oct, Type 2 diabetes mellitus without complication E11.9 ; Essential hypertension I10 and Acute maxillary sinusitis, recurrence not specified J01.[address] 68212- 2504 Oct, [address] 66852- 0533 Oct, [address] 81145- 2021 Oct, Exposure to head lice Z20.7 ; Blood glucose abnormal R73.09 ; Boil of buttock L02.32 and Type 2 diabetes mellitus without complication E11.9 [place] [address] 34675- 2923 Oct, [address] 98435- 2433 Sep, [place] [address] 24268- 1515 Sep, [address] 21140- 2319 Aug, Encounter for Depo-Provera contraception Z30.[address] 48958- 1977 Aug, Anxiety F41.9 ; Spinal stenosis, lumbar region M48.06 ; Radiculopathy of lumbar region M54.16 ; Asthma J45.909 ; GERD (gastroesophageal reflux disease) K21.9 ; Essential hypertension I10 and Long-term use of high- risk medication Z79.899 [place] [address] 09105- 6340 Jul, [place] [address] 30946- 5270 Jun, Hemorrhoid 455.[address] 06546- 4184 Jun, [place] [address] 37312- 8083 Jun, Anxiety 300.00 ; Asthma 493.90 ; Hyperhidrosis 705.21 ; Chest discomfort 786.59 and Upper respiratory infection 465.[address] 01452- 5562 May, Encounter for Depo-Provera contraception V25.[address] 77153- 7405 May, [address] 23615- 9668 May, [address] 47712- 4626 May, Spinal stenosis of lumbar region with radiculopathy 724.02 ; Bulging of intervertebral disc between L4 and L5 722.10 ; GERD ( gastroesophageal reflux disease) 530.81 ; Chronic pain 338.29 ; Declining mobility 799.89 and Epigastric pain 789.06 [place] [id number] [place] [address] 71953- 6115 Apr, [address] 97569- 6986 Apr, Nausea 787.02 and Heart burn 787.[address] 72459- 2586 Mar, Lumbago 724.2 ; Vitamin D deficiency 268.9 ; Anxiety 300.00 ; Allergic rhinitis 477.9 and Contraceptive surveillance V25.40 [facility] [id number] [place] [address] 82798- 6694 February, 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 ; Chronic pain 338.29 and Vaginal discharge 623.5 [facility] [id number] [place] [address] 30044- 1576 February, [facility] [id number] [place] [address] 59220- 1276 February, [facility] [id number] [place] [address] 48948352- 3077 Jan, [facility] [id number] [place] [address] 957359- 2601 Jan, [facility] [id number] [place] [address] 26913872- 6350 Dec, [facility] [address] [place] [address] 76733- 0553 Dec, [facility] [id number] [place] [address] 33838656- 5061 Dec, [facility] [address] [address]- 6569 Dec, [facility] [address] 6970 Dec, [facility] [address]- 6184 Dec, [facility] [id number] [place] [address] 118040- 9178 Dec, [facility] [address], [place] [address]- 9972 Dec, [facility] [id number] [place] [address] 52077- 5007 Dec, [facility] [place] [facility] [address] [id number] [place] [address]- 9823 Dec, [facility] [place] [facility] [address] [id number] [place] [address]- 6132 Dec, [facility] [place] [facility] [address] [facility] [id number] [place] [address]- 0932 Dec, [facility] [place] [facility] [address] [facility] [id number] [place] [address]- 7509 Nov, 2014 [facility] [place] [facility] [address] [id number] [place] [address]- 0297 Nov, 2014 [facility] [place] [facility] [address] [facility] [id number] [place] [address]- 6439 24 Nov, 2014 [facility] [place] [facility] [address] [facility] [id number] [place] [address]- 3350 24 Nov, 2014 [facility] [place] [facility] [address] [facility] [id number] [place] [address]- 6732 23 Nov, 2014 [facility] [place] [facility] [address] [facility] [id number] [place] [address]- 4049 23 Nov, 2014 [facility] [place] [facility] [address] [facility] [id number] [place] [address]- 6031 16 Nov, 2014 [facility] [place] [facility] [address] [facility] [id number] [place] [address]- 7832 16 Nov, 2014 [facility] [place] [facility] [address] [facility] [id number], [place] [address]- 1043 13 Nov, 2014 [facility] [place] [facility] [address] [facility] [id number] [place] [address]- 1347 13 Nov, 2014 [facility] [place] [facility] [address] [facility] [id number], [place] [address]- 7622 13 Nov, 2014 [facility] [place] [facility] [address] [facility] [id number], [place] [address]- 6797 13 Nov, 2014 [facility] [place] [facility] [address] [id number] [place] [address]- 2356 Nov, 2014 [facility] [place] [facility] [address] [id number] [place] [address]- 5726 Nov, 2014 [facility] [place] [facility] [address] [id number] [place] [address]- 6176 Nov, 2014 [facility] [place] [facility] [address] [id number] [place] [address] 2545 Nov, 2014 [facility] [place] [facility] [address] [id number] [place] [address]- 4364 Nov, 2014 [facility] [place] [facility] [address] [id number] [place] [address]- 3708 Nov, 2014 [facility] [place] [facility] [address] [id number] [place] [address]- 9396 Nov, 2014 [facility] [place] [facility] [address] [id number] [place] [address]- 0352 Nov, 2014 [facility] [place] [facility] [address] [id number] [place] [address]- 5609 Nov, 2014 [facility] [place] [facility] [address] [id number] [place] [address]- 9298 Nov, [facility] [place] [facility] [address] [id number] [place] [address]- 9739 Nov, [facility] [place] [facility] [address] [id number] [place] [address]- 0344 Oct, [facility] [place] [facility] [address] [id number] [place] [address] Oct, [facility] [place] [facility] [address] [id number] [place] [address] Oct, [facility] [place] [facility] [address] [id number] [place] [address] Oct, [facility] [place] [facility] [address] [id number] [place] [address] Oct, [facility] [address] [id number] [place] [address] Oct, [facility] [place] [facility] [address] [id number] [place] [address] Oct, [facility] [address] [id number] [place] [address] Oct, [facility] [place] [facility] [address] [id number] [place] [address] Oct, [facility] [address] [id number] [place] [address] Oct, [facility] [place] [facility] [address] [id number] [place] [address] Oct, [facility] [address] [id number] [place] [address] Oct, [facility] [address] [id number] [place] [address] Oct, [facility] [place] [facility] [address] [id number] [place] [address] Oct, [facility] [address] [id number] [place] [address] Oct, [facility] [place] [facility] [address] [id number] [place] [address] Oct, [facility] [place] [facility] [address] [id number] [place] [address] Oct, [facility] [place] [facility] [address] [id number] [place] [address] Oct, [facility] [place] [facility] [address] [id number] [place] [address] Oct, [facility] [place] [facility] [address] [id number] [place] Oct, [facility] [place] [facility] [address] [id number] [place] [address] Oct, [facility] [place] [facility] [address] [id number] [place] [address] 67[address] Sep, [facility] [place] [facility] [address] [id number] [place] [address] 8193 29 Sep, 2014 [facility] [place] [facility] [address] [id number] [place] [address]- 3657 18 Sep, 2014 [facility] [place] [facility] [address] [id number] [place] [address] 7523 18 Sep, 2014 [facility] [place] [facility] [address] [id number] [place] [address] 8234 Sep, [facility] [place] [facility] [address] [id number] [place] [address] 2957 17 Sep, 2014 [facility] [place] [facility] [address] [id number] [place] [address]- 5982 15 Sep, 2014 [facility] [place] [facility] [address] [id number] [place] [address]- 4186 15 Sep, 2014 [facility] [place] [facility] [address] [id number] [place] [address] 1689 Sep, [facility] [place] [facility] [address] [id number] [place] [address] 7917 12 Sep, 2014 [facility] [place] [facility] [address] [id number] [place] [address] 6172 11 Sep, 2014 [facility] [place] [facility] [address] [id number] [place] [address] 3421 Sep, [facility] [place] [facility] [address] [id number] [place] [address] 1679 Sep, [facility] [place] [facility] [address] [id number] [place] [address]- 2955 11 Sep, 2014 [facility] [place] [facility] [address] [id number], [place] [address] Sep, [facility] [place] [facility] [address] [id number] [place] [address]- 8313 Sep, [facility] [place] [facility] [address] [id number] [place] [address]- 7446 Sep, [facility] [place] [facility] [address] [facility] [id number] [place] [address] 3000 Sep, [facility] [place] [facility] [address] [id number] [place] [address]- 5535 Sep, [facility] [place] [facility] [address] [id number] [place] [address]- 4690 Sep, [facility] [place] [facility] [address] [id number] [place] [address]- 8360 Aug, [facility] [place] [facility] [address] [id number] [place] [address]- 0654 Aug, [facility] [place] [facility] [address] [id number] [place] [address]- 9342 Aug, [facility] [place] [facility] [address] [id number] [place] [address]- 4697 Aug, [facility] [place] [facility] [address] [facility] [address] [id number] [place] [address]- 3442 Aug, [facility] [place] [facility] [address] [id number] [place] [address]- 6529 Aug, [facility] [place] [facility] [address] [id number], [place] [address]- [address] Aug, [facility] [place] [facility] [address] [id number] [place] [address]- 8185 Aug, [facility] [place] [facility] [address] [facility] [id number] [place] [address]- 6010 Aug, [facility] [place] [facility] [address] [id number] [place] [address]- 8901 Jul, [facility] [place] [facility] [address] [id number] [place] [address]- 0601 29 Jul, 2013 [facility] [place] [facility] [address] [id number] [place] [address]- 4928 Jul, 2013 [facility] [place] [facility] [address] [id number] [place] [address]- 1761 Jul, 2013 [facility] [place] [facility] [address] [id number] [place] [address] 16 Jul, 2013 [facility] [place] [facility] [address] [id number] [place] [address]- 1529 16 Jul, 2013 [facility] [place] [facility] [address] [id number] [place] [address]- 4550 Jul, 2013 [facility] [place] [facility] [address] [id number] [place] [address]- 7144 Jul, 2013 [facility] [place] [facility] [address] [id number] [place] [address]- 2641 10 Jul, 2013 [facility] [place] [facility] [address] [id number] [place] [address]- 1199 10 Jul, 2013 [facility] [place] [facility] [address] [id number] [place] [address]- 9784 10 Jul, 2013 [facility] [place] [facility] [address] [id number] [place] [address]- 1903 10 Jul, 2013 [facility] [place] [facility] [address] [id number] [place] [address]- 3170 07 Jul, 2013 [facility] [place] [facility] [address] [id number] [place] [address]- 3928 07 Jul, 2013 [facility] [place] [facility] [address] [id number] [place] [address]- 6100 30 Jun, 2013 [facility] [place] [facility] [address] [id number] [place] 97[address] 30 Sep, 2013 [facility] [place] [facility] [address] [id number] [place] [address]- 4241 25 Sep, 2013 [facility] [place] [facility] [address] [id number] [place] [address]- 9855 25 Sep, 2013 [facility] [place] [facility] [address] [id number] [place] [address]- 8526 25 Sep, 2013 [facility] [place] [facility] [address] [id number] [place] [address]- 5318 25 Sep, 2013 [facility] [place] [facility] [address] [id number] [place] [address]- 2642 24 Sep, 2013 [facility] [place] [facility] [address] [id number] [place] [address]- 9209 24 Sep, 2013 [facility] [place] [facility] [address] [id number] [place] [address]- 9013 22 Jun, 2013 [facility] [place] [facility] [address] [id number] [place] [address]- 2919 22 Jun, 2013 [facility] [place] [facility] [address] [id number] [place] [address]- 2759 17 Sep, 2013 [facility] [place] [facility] [address] [id number] [place] [address]- 9559 17 Sep, 2013 [facility] [place] [facility] [address] [id number] [place] [address]- 7726 16 Sep, 2013 [facility] [place] [facility] [address] [id number], [place] [address] 1994 16 Sep, 2013 [facility] [place] [facility] [address] [id number], [place] [address]- 2549 15 Sep, 2013 [facility] [place] [facility] [address] [id number] [place] [address]- 2548 15 Sep, 2013 [facility] [place] [facility] [address] [id number] [place] [address]- 1909 12 Sep, 2013 [facility] [place] [facility] [address] [id number] [place] [address]- 7253 12 Sep, 2013 [facility] [place] [facility] [address] [id number] [place] [address]- 2963 11 Jun, 2013 [facility] [place] [facility] [address] [id number] [place] [address]- 8256 11 Jun, 2013 [facility] [place] [facility] [address] [id number] [place] [address] 2546 Jun, 2013 [facility] [place] [facility] [address] [id number] [place] [address]- 6454 Jun, 2013 [facility] [place] [facility] [address] [id number] [place] [address] 2541 Jun, 2013 [facility] [place] [facility] [address] [id number] [place] [address]- 6025 Jun, 2013 [facility] [place] [facility] [address] [id number] [place] [address]- 2359 Jun, 2013 [facility] [place] [facility] [address] [id number] [place] [address]- 6084 Jun, 2013 [facility] [place] [facility] [address] [id number] [place] [address]- 9605 May, [facility] [place] [facility] [address] [id number] [place] [address]- 3375 May, [facility] [place] [facility] [address] [id number] [place] [address]- 7244 May, [facility] [place] [facility] [address] [id number] [place] [address]- 8802 May, [facility] [place] [facility] [address] [id number] [place] [address]- 2540 May, [facility] [place] [facility] [address] [id number] [place] [address]- 7617 May, [facility] [place] [facility] [address] [id number] [place] [address]- 1175 May, [facility] [place] [facility] [address] [id number] [place] [address]- 7896 May, [facility] [place] [facility] [address] [id number] [place] [address]- 1718 May, [facility] [place] [facility] [address] [id number] [place] [address]- 4525 May, [facility] [place] [facility] [address] [id number] [place] [address]- 0588 May, [facility] [place] [facility] [address] [id number] [place] [address]- 8241 May, [facility] [place] [facility] [address] [id number] [place] [address]- 2346 May, [facility] [place] [facility] [address] [id number] [place] [address]- 7015 Apr, [facility] [place] [facility] [address] [id number] [place] [address]- 6695 Apr, [facility] [place] [facility] [address] [id number] [place] [address]- 5363 Apr, [facility] [place] [facility] [address] [id number] [place] [address]- 4064 Apr, [facility] [place] [facility] [address] [id number] [place] [address]- 1948 Apr, [facility] [place] [facility] [address] [id number] [place] [address]- 8217 Mar, [facility] [place] [facility] [address] [id number] [place] [address]- 8368 Mar, [facility] [place] [facility] [address] [id number] [place] [address]- 4159 Mar, [facility] [place] [facility] [address] [id number] [place] [address]- 8023 February, [facility] [place] [facility] [address] [id number] [place] [address]- 1620 February, [facility] [place] [facility] [address] [id number] [place] [address]- 3951 February, [facility] [place] [facility] [address] [id number] [place] [address]- 0113 February, [facility] [place] [facility] [address] [id number] [place] [address]- 1014 February, [facility] [place] [facility] [address] [id number] [place] [address]- 6486 February, [facility] [place] [facility] [address] [id number] [place] [address]- 8972 February, [facility] [place] [facility] [address] [id number] [place] [address]- 9801 February, [facility] [place] [facility] [address] [id number] [place] [address]- 6671 February, [facility] [place] [facility] [address] [id number] [place] [address]- 6569 Jan, [facility] [place] [facility] [address] [id number] [place] [address]- 2041 Jan, [facility] [place] [facility] [address] [id number] [place] [address]- 1532 Jan, [facility] [place] [facility] [address] [id number] [place] [address]- 4101 Jan, [facility] [place] [facility] [address] [id number] [place] [address]- 3603 Jan, [facility] [place] [facility] [address] [id number] [place] [address]- 6584 Dec, [facility] [place] [facility] [address] [id number] [place] [address]- 7724 Dec, [facility] [place] [facility] [address] [id number] [place] [address]- 5749 Dec, [facility] [place] [facility] [address] [id number] [place] [address]- 7536 Dec, [facility] [place] [facility] [address] [id number] [place] [address]- 4645 Dec, [facility] [place] [facility] [address] [id number] [place] [address]- 3127 Nov, [facility] [place] [facility] [address] [id number] [place] [address]- 0576 Nov, [facility] [place] [facility] [address] [id number] [place] [address]- 0406 Nov, [facility] [place] [facility] [address] [id number] [place] [address]- 8175 Nov, [facility] [place] [facility] [address] [id number] [place] [address]- 1974 Oct, [facility] [place] [facility] [address] [id number] [place] [address]- 4680 Oct, [facility] [place] [facility] [address] [id number] [place] [address]- 9618 Oct, [facility] [place] [facility] [address] [id number] [place] [address]- 7435 Oct, [facility] [place] [facility] [address] [id number] [place] [address]- 3964 Oct, [facility] [place] [facility] [address] [id number] [place] [address]- 0202 Oct, [facility] [place] [facility] [address] [id number] [place] [address]- 3219 Oct, [facility] [place] [facility] [address] [id number] [place] [address]- 3547 Oct, [facility] [place] [facility] [address] [id number] [place] [address]- 8930 Oct, [facility] [place] [facility] [address] [id number] [place] [address]- 4618 Oct, [facility] [place] [facility] [address] [id number] [place] [address]- 8974 Aug, [facility] [place] [facility] [address] [id number] [place] [address]- 2094 Aug, [facility] [place] [facility] [address] [id number] [place] [address]- 7457 Jul, [facility] [place] [facility] [address] [facility] [id number] [place] [address]- 2547 Jul, [facility] [place] [facility] [address] [id number] [place] [address]- 2450 Jul, [facility] [place] [facility] [address] [id number] [place] [address]- 6774 Jul, [facility] [place] [facility] [address] [id number] [place] [address]- 8882 Jul, [facility] [place] [facility] [address] [facility] [id number] [place] [address]- 6278 Jul, [facility] [place] [facility] [address] [id number], [place] [address]- 3305 Apr, [facility] [place] [facility] [address] [id number] [place] [address]- 3011 Dec, [facility] [place] [facility] [address] [facility] [id number], [place] [address]- 8792 Nov, [facility] [place] [facility] [address] [id number], [place] [address]- 0179 Nov, [facility] [place] [facility] [address] [id number], [place] [address]- 254 Nov, [facility] [place] [facility] [address] [id number], [place] [address]- 2546 Oct, [facility] [place] [facility] [address] [id number], [place] [address] 2546 Sep, [facility] [place] [facility] [address] [id number], [place] [address]- 2546 Sep, [facility] [place] [facility] [address] [id number] [place] [address]- 2594 Sep, [facility] [address] [id number] [place] [address]- 8406 Sep, [facility] [place] [facility] [address] [id number] [place] [address]- 8786 Aug, [facility] [address] [id number] [place] [address]- 7215 Aug, [facility] [place] [facility] [address] [id number] [place] [address]- 3425 Jul, [facility] [address] [id number] [place] [address], [place] [address]334 Jul, [facility] [place] [facility] [address] [id number] [place] [address]- 7679 28 Jun, 2012 [facility] [place] [facility] [address] [id number] [place] [address]- 8342 26 Jun, 2012 [facility] [place] [facility] [address] [id number] [place] [address]- 1992 24 Jun, 2012 [facility] [place] [facility] [address] [id number] [place] [address]- 2000 24 Jun, 2012 [facility] [place] [facility] [address] [facility] [id number] [place] [address]- 8650 12 Jun, 2012 [facility] [place] [facility] [address] [id number] [place] [address] 2542 31 Apr, 2012 [facility] [place] [facility] [address] [id number] [place] [address]- 4991 30 Apr, 2012 [facility] [place] [facility] [address] [id number] [place] [address]- 9182 24 Apr, 2012 [facility] [place] [facility] [address] [id number] [place] [address]- 6660 Mar, [facility] [place] [facility] [address] [facility] [id number] [place] [address]- 1082 05 Mar, 2012 [facility] [address] [id number] [place] [address]- 2163 Mar, [facility] [place] [facility] [address] [id number] [place] [address]- 5066 February, [facility] [place] [facility] [address] [id number] [place] [address]- 4886 Jan, [facility] [place] [facility] [address] [id number] [place] [address]- 1976 Dec, [facility] [place] [facility] [address] [id number] [place] [address]- 5898 Dec, [facility] [place] [facility] [address] [id number] [place] [address]- 0086 Dec, [facility] [place] [facility] [address] [id number] [place] [address]- 8016 Dec, [facility] [place] [facility] [address] [id number] [place] [address]- 4656 Dec, [facility] [place] [facility] [address] [id number] [place] [address]- 8517 Nov, [facility] [place] [facility] [address] [id number] [place] [address]- 7016 Nov, [facility] [place] [facility] [address] [id number] [place] Oct, [facility] [place] [facility] [address] [id number] [place] [address]- 8776 Oct, [facility] [place] [facility] [address] [id number] [place] [address]- 0696 Oct, [facility] [place] [facility] [address] [id number] [place] [address]- 7976 Sep, [facility] [place] [facility] [address] [id number] [place] [address]- 6326 Aug, [facility] [place] [facility] [address] [id number] [place] [address]- 1429 10 Aug, 2011 [facility] [place] [facility] [address] [id number] [place] [address]- 8831 28 Jul, 2011 [facility] [place] [facility] [address] [id number] [place] [address]- 6547 24 Jul, 2011 [facility] [place] [facility] [address] [id number] [place] [address]- 9486 19 Jul, 2011 [facility] [place] [facility] [address] [id number] [place] [address]- 9894 13 Jan, 2011 [facility] [place] [facility] [address] [id number] [place] [address], [place] [address]- 4431 29 Sep, 2010 [facility] [place] [facility] [address] [id number] [place] [address]- 4102 27 Sep, 2010 [facility] [place] [facility] [address] [id number] [place] [address]- 3189 Sep, [facility] [place] [facility] [address] [id number] [place] [address]- 3594 20 Sep, 2010 [facility] [place] [facility] [address] [id number] [place] [address]- 9230 06 Sep, 2010 [facility] [place] [facility] [address] [id number] [place] [address]- 9606 16 Aug, 2010 [facility] [place] [facility] [address] [id number] [place] [address]- 1458 16 Aug, 2010 [facility] [place] [facility] [address] [id number] [place] [address]- 1182 08 Aug, 2010 [facility] [place] [facility] [address] [id number] [place] [address]- 1185 19 Jul, 2010 [facility] [place] [facility] [address] [id number] [place] [address]- 6409 19 Jul, 2010 [facility] [place] [facility] [address] [id number], [place] [address]- 2235 12 Jul, 2010 [facility] [place] [facility] [address] [id number], [place] [address]- 2546 May, [facility] [id number], [place] [address]- 4696 Apr, [facility] [id number], [place] [address]- 2546 Dec, [facility] [id number], [place] [address]- 2416 Sep, [facility] [id number], [place] [address]- 6256 Sep, [facility] [id number], [place] [address]- 7256 Aug, [facility] [id number] [place] [address] Aug, [facility] [id number] [place] [address] Jul, [facility] [id number] [address] Mar, IMMUNIZATIONS Vaccine Route Administration Date Status DEPO PROVERA (150 MG/ML) IM Intramuscular May 10, 2017 Administered SOCIAL HISTORY Never Assessed REASON FOR VISIT Depo Provera injection [facility]MA PLAN OF CARE VITAL SIGNS MEDICATIONS Unknown Medications RESULTS Name Result Date Reference Range TEST, URINE (IN HOUSE) 2017-05-10 RESULTS Negative Lot # [id number] Control + Exp date 04/19/2018 PROCEDURES Procedure Date Ordered Result Body Site URINE TEST May 10, 2017 DEPO PROVERA (150 MG/ML) May 10, 2017 THER/PROPH/DIAG INJ, SC/IM May 10, 2017 INSTRUCTIONS MEDICATIONS ADMINISTERED No Known Medications [...] 2015 Hospitalization History Surgery(s) only Hospitalization History Model-sepsis/ARF 06/2017
--- OUTSIDE RECORDS SUMMARY | 2018-10-08 20:09 | XMS REPORT ---
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 605645986 Problem Edema of both feet R60.0 Active 020482495 Problem Tobacco abuse Z72.0 Active 58915983 Problem Chronic migraine G43.709 Active 67430725 Problem Mixed hyperlipidemia E78.2 Active 344050699 Problem Spinal stenosis, lumbar region M48.06 Active 46990009 Problem Anxiety F41.9 Active 90510703 Problem Radiculopathy of lumbar region M54.16 Active 286387595 Problem Bulging lumbar disc M51.26 Active 721389363 Problem Asthma J45.909 Active 613861054 Problem Essential hypertension I10 Active 50872816 ALLERGIES No Information ENCOUNTERS Encounter Location Date Diagnosis [facility] [id number], [place] [address] Mar, [facility] [id number], [place] [address] 9[address] February, Chronic pain G89.29 [facility] [address], [place] [address] 21[address] Jan, Chronic pain G89.29 [facility] [id number], [place] [address] 4893 Jan, 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 [place] [facility] [id number] [place] [address] 57778- 7107 Jan, Encounter for Depo-Provera contraception Z30.42 [place] [id number] [place] [address] 66552- 4023 Jan, [place] [address] 34753- 3926 Jan, Chronic pain G89.29 and Anxiety F41.9 [place] [address] 09393- 1657 Jan, [place] [address] 09522- 7094 Dec, [place] [address] 17630- 8158 Dec, Gastroesophageal reflux disease without esophagitis K21.9 and Anxiety F41.9 [place] [id number] [place] [address] 98373- 4403 Dec, Essential hypertension I10 ; Mixed hyperlipidemia E78.2 ; Type 2 diabetes mellitus with diabetic neuropathy, unspecified E11.40 ; assisted 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 Z79.4 ; Chronic pain G89.29 ; HSV (herpes simplex virus) infection B00.9 ; Anxiety F41.9 and Gastroesophageal reflux disease without esophagitis K21.9 [place] [id number] [place] [address] 10286- 0733 Dec, Chronic pain G89.29 and Chronic migraine G43.709 [facility] [id number] [place] [address] 87174- 2886 Nov, [place] [id number] [place] [address] 66790- 3284 Nov, Essential hypertension I10 and Chronic pain G89.29 [place] [address] 43463- 5925 Nov, Chronic pain G89.29 ; Essential hypertension I10 and Type 2 diabetes mellitus without complication E11.9 [place] [id number] [place] [address] 70042- 7621 Oct, Chronic pain G89.29 [facility] [id number] [place] [address] 49650- 0760 Oct, [place] [address] 35282- 1898 Sep, Type 2 diabetes mellitus without complication E11.9 ; Essential hypertension I10 ; termite control service representative (current) use of insulin Z79.4 ; Chronic migraine G43.709 ; Chronic pain G89.29 and Acute non-recurrent maxillary sinusitis J01.00 [place] [id number] [place] [address] 47185- 0857 Sep, Encounter for Depo-Provera contraception Z30.42 [facility] [id number] [place] [address] 09216- 7483 Sep, Chronic pain G89.29 and Radiculopathy of lumbar region M54.16 [facility] [id number] [place] [address] 91002- 9965 Sep, [place] [id number] [place] [address] 46423- 0839 Sep, [place] [id number] [place] [address] 30600- 2598 Aug, Type 2 diabetes mellitus without complication E11.9 [place] [id number] [place] [address] 23792- 9798 Aug, [place] [id number] [place] [address] 72960- 1869 Aug, Radiculopathy of lumbar region M54.16 and Chronic pain G89.29 [place] [id number] [place] [address] 69568- 3403 Aug, Type 2 diabetes mellitus without complication E11.9 [facility] [address] [facility] [id number] [address] 1824 Aug, Type 2 diabetes mellitus without complication E11.9 [facility] [id number] [place] [address] 78400- 2956 Jul, Type 2 diabetes mellitus without complication E11.9 [facility] [id number] [place] [address] 04226- 2316 Jul, [facility] [id number] [place] [address] 27346 2545 Jul, Chronic pain G89.29 [facility] [id number] [place] [address] 49611- 1926 Jul, [facility] [id number] [place] [address] 68832- 8654 Jul, [facility] [id number] [place] [address] 11458- 1388 Jul, Type 2 diabetes mellitus without complication E11.9 [facility] [address], [place] [address] 7144 Jul, [facility] [id number] [place] [address] 78960- 7211 Jul, Type 2 diabetes mellitus without complication E11.9 [facility] [address], [place] [address]- 8493 Jul, [facility] [address], [place] [address]- 254 Jul, [facility] [id number] [place] [address] 74606- 3105 Jul, [facility] [id number] [place] [address] 91228- 8927 Jun, Type 2 diabetes mellitus without complication E11.9 [facility] [address], [place] [address]- 1220 Jun, Chronic migraine G43.709 ; Type 2 diabetes mellitus without complication E11.9 ; Calculus of right kidney N20.0 ; Yeast dermatitis B37.2 and HSV (herpes simplex virus) infection B00.9 [place] [id number] [place] [address] 61836- 0499 Jun, Type 2 diabetes mellitus without complication E11.9 [place] [address] 04614- 7679 Jun, [place] [address] 01373- 8931 Jun, Radiculopathy of lumbar region M54.16 and Chronic pain G89.29 [place] [address] 79379- 3979 Jun, Encounter for Depo-Provera contraception Z30.42 [place] [address] 33426- 2325 Jun, Type 2 diabetes mellitus without complication E11.9 [place] [id number] [place] [address] 66818- 1043 Jun, [facility] [id number] [place] [address] 81434 -7797 May, Acute nasopharyngitis (common cold) J00 [place] [id number] [place] [address] 47127- 9320 May, Chronic pain G89.29 [place] [address] 59772- 1626 May, Headache following lumbar puncture G97.1 [place] [address] 09148- 8781 May, Radiculopathy of lumbar region M54.16 [place] [address] 77362- 4631 Apr, [place] [address] 79260- 0017 Apr, Type 2 diabetes mellitus without complication E11.9 ; Chronic pain G89.29 ; Essential hypertension I10 ; Radiculopathy of lumbar region M54.16 ; Spinal stenosis, lumbar region M48.06 ; Gastroesophageal reflux disease without esophagitis K21.9 ; HSV (herpes simplex virus) infection B00.9 ; Mixed hyperlipidemia E78.2 ; Anxiety F41.9 and Asthma J45.[address] 87471- 8781 Apr, Encounter for Depo-Provera contraception Z30.[address] 573924- 7789 Apr, Chronic pain G89.29 and Anxiety F41.[address] 66502- 3078 Mar, [address] 78087- 1363 Mar, [address] 88042- 6969 Mar, Mixed hyperlipidemia E78.[address] 12787- 5679 Mar, Type 2 diabetes mellitus without complication E11.9 ; Chronic pain G89.29 ; Essential hypertension I10 ; Radiculopathy of lumbar region M54.16 ; Spinal stenosis, lumbar region M48.06 ; Gastroesophageal reflux disease without esophagitis K21.9 ; HSV (herpes simplex virus) infection B00.9 ; Mixed hyperlipidemia E78.2 and Anxiety F41.[address] 56231- 0326 Mar, [address] 29036- 0951 Mar, [address] 21315- 5018 Mar, [facility] [address], [place] [address]- 1710 February, Chronic pain G89.29 [facility] [id number] [place] [address] 04333- 6020 February, [facility] [id number] [place] [address] 26348- 8865 Jan, Chronic pain G89.29 [facility] [id number] [place] [address] 75524- 2003 Jan, Type 2 diabetes mellitus without complication E11.9 [place] [id number] [place] [address] 45098- 0212 Jan, [facility] [id number] [place] [address] 97572- 5079 Jan, [facility] [id number] [place] [address] 04458- 9320 Jan, [facility] [id number] [place] [address] 98312- 8351 Jan, Type 2 diabetes mellitus without complication [...] contraception Z30.42 [facility] [address] [place] [address] 96933- 8284 Dec, Chronic pain G89.29 [facility] [address] [place] [address] 09801- 0290 Dec, Abnormal ankle brachial index (BERNARDINO) R68.89 [facility] [id number] [place] [address] 56255- 8663 Dec, [place] [address] [place] [address] 04207- 9051 Dec, Routine gynecological examination Z01.419 ; Chronic [...] virus) infection B00.9 and Allergic rhinitis 477.9 [address] [id number] [place] [address] 32145- 4967 Nov, Chronic pain G89.29 [address] [address] [place] [address] 27063- 0478 02 Nov, 2016 Chronic pain G89.29 ; [...] mucoid otitis media of both ears H65.113 [place] [address] [place] [address] 09904- 9383 Oct, [address] [place] [id number] [place] [address] 44782- 5630 Oct, Chronic pain G89.29 [address] [id number] [place] [address] 25243- 1333 Oct, Chronic pain G89.29 [address] [address] [place] [address] 89138- 1968 Sep, Chronic pain G89.29 ; Type 2 diabetes mellitus without complication E11.9 ; Essential hypertension I10 ; Radiculopathy of lumbar region M54.16 ; Spinal stenosis, lumbar region M48.06 ; Gastroesophageal reflux disease without esophagitis K21.9 ; Encounter for surveillance of injectable contraceptive Z30.42 ; Bilateral cold feet R20.9 ; Pain of left foot M79.672 and Pain in right foot M79.671 [address] [place] [id number] [place] [address] 71002- 2654 Sep, [address] [place] [address] 33769- 0063 Aug, [address] [place] [address] 53598- 2531 Aug, [address] [place] [address] 20092- 9871 Aug, Chronic pain G89.29 ; Type 2 diabetes mellitus without complication E11.9 ; Essential hypertension I10 ; Rash and nonspecific skin eruption R21 and Upper respiratory infection, acute J06.9 [address] [place] [address] 38790- 3674 Aug, [address] [place] [address] 49254- 0961 Aug, [address] [place] [address] 24555- 4401 Jul, [address] [address] 70492- 6867 Jul, Dysuria R30.0 ; Encounter for Depo-Provera contraception Z30.42 ; Herpes simplex B00.9 ; Nausea & vomiting R11.2 and Asthma J45.909 [address] [place] [address] 96197- 7389 Jun, Dysuria R30.0 [address] [place] [address] 63890- 2632 Jun, Dysuria R30.0 [address] [address] 33788- 3009 15 Jun, 2016 [address] [id number] [place] [address] 03960- 3253 Jun, [place] [id number] [place] [address] 38695- 9595 May, [address] [id number] [place] [address] 10666- 3947 May, [address] [place] [id number] [place] [address] 28088- 7011 May, Chronic pain G89.29 ; Essential hypertension I10 ; Type 2 diabetes mellitus without complication E11.9 ; Edema of both feet R60.0 and Rash and nonspecific skin eruption R21 [address] [place] [id number] [place] [address] 13189- 1320 Apr, [address] [place] [id number] [place] [address] 11139- 6470 Mar, Carpal tunnel syndrome, left upper limb G56.02 and Carpal tunnel syndrome, right upper limb G56.01 [address] [id number] [place] [address] 42056- 5030 Mar, [place] [id number] [place] [address] 93070- 7200 Mar, Encounter for Depo-Provera contraception Z30.42 [place] [id number] [place] [address] 78221- 1514 February, [address] [place] [id number] [place] [address] 52271- 3107 February, [place] [id number] [place] [address] 58284- 2056 February, Chronic pain G89.29 ; Essential hypertension I10 ; Type 2 diabetes mellitus without complication E11.9 ; HSV (herpes simplex virus) infection B00.9 ; Anxiety F41.9 ; Hypersomnia G47.10 ; Tobacco abuse Z72.0 ; Hand pain, left M79.642 ; Hand pain, right M79.641 ; Left foot pain M79.672 and Heart palpitations R00.[address] 95386- 5013 Jan, [address] [address] 30467- 0391 Jan, [place] [address] 70666- 7822 Jan, [address] [place] [address] 29787- 9464 Jan, [address] 97923- 4075 Jan, Upper respiratory infection J06.9 and Type 2 diabetes mellitus without complication E11.[address] 69564- 1313 Dec, [address] 91792- 8997 Dec, Chronic pain G89.29 ; Essential hypertension I10 ; Type 2 diabetes mellitus without complication E11.9 ; HSV (herpes simplex virus) infection B00.9 ; Anxiety F41.9 ; Upper respiratory infection J06.9 ; Hypersomnia G47.10 and Tobacco abuse Z72.0 [id number] [place] [address] 71175- 7999 Dec, Encounter for Depo-Provera contraception Z30.42 [id number] [place] [address] 33833- 0559 Dec, [address] 46358- 6808 Dec, Chronic pain G89.29 ; Sinusitis J32.9 ; Snoring R06.83 and Daytime hypersomnia G47.[address] 75401- 4091 Nov, HSV (herpes simplex virus) infection B00.9 ; Encounter for Papanicolaou smear for cervical cancer screening Z12.4 ; Screening for STD sexually transmitted disease Z11.3 and Bartholin's gland cyst N75.0 [address] [id number] [place] [address] 14264- 5776 Nov, [address] [place] [id number] [place] [address] 28856- 5261 Nov, [address] [place] [id number] [place] [address] 74057- 2268 Nov, Essential hypertension I10 ; Type 2 diabetes mellitus without complication E11.9 ; HSV (herpes simplex virus) infection B00.9 ; Spinal stenosis, lumbar region M48.06 and Vaginal yeast infection B37.3 [address] [place] [id number] [place] [address] 93907- 7030 Nov, [address] [id number] [place] [address] 23776- 7820 Nov, [address] [id number] [place] [address] 31215- 7911 Oct, [address] [place] [id number] [place] [address] 03853- 8513 Oct, HSV (herpes simplex virus) infection B00.9 ; Yeast infection B37.9 ; Change in bowel habit R19.4 ; Nausea & vomiting R11.2 and Gastroesophageal reflux disease without esophagitis K21.9 [address] [place] [place] [address] 96889- 3787 Oct, [place] [id number] [place] [address] 29711- 2387 Oct, Type 2 diabetes mellitus without complication E11.9 ; Essential hypertension I10 and Acute maxillary sinusitis, recurrence not specified J01.00 [address] [id number] [place] [address] 19980- 8926 Oct, [facility] [place] [id number] [place] [address] 13794- 4410 Oct, [address] 16501- 6272 Oct, Exposure to head lice Z20.7 ; Blood glucose abnormal R73.09 ; Boil of buttock L02.32 and Type 2 diabetes mellitus without complication E11.[address] 74275- 3422 Oct, [address] 81116- 4325 Sep, [address] 59945- 5994 Sep, [address] 56132- 5441 Aug, Encounter for Depo-Provera contraception Z30.[address] 60788- 5322 Aug, Anxiety F41.9 ; Spinal stenosis, lumbar region M48.06 ; Radiculopathy of lumbar region M54.16 ; Asthma J45.909 ; GERD (gastroesophageal reflux disease) K21.9 ; Essential hypertension I10 and Long-term use of high- risk medication Z79.[address] 28281- 4155 Jul, [address] 74487- 5238 Jun, Hemorrhoid 455.[address] 19628- 7046 Jun, [address] 61300- 9944 Jun, Anxiety 300.00 ; Asthma 493.90 ; Hyperhidrosis 705.21 ; Chest discomfort 786.59 and Upper respiratory infection 465.[id number] [place] [address] 20297- 0572 May, Encounter for Depo-Provera contraception V25.49 [place] [address] 85651- 4515 May, [place] [address] 45223- 6861 May, [place] [address] 90466- 9817 May, Spinal stenosis of lumbar region with radiculopathy 724.02 ; Bulging of intervertebral disc between L4 and L5 722.10 ; GERD ( gastroesophageal reflux disease) 530.81 ; Chronic pain 338.29 ; Declining mobility 799.89 and Epigastric pain 789.06 [place] [address] 33392- 5632 Apr, [address] 95128- 6384 Apr, Nausea 787.02 and Heart burn 787.[address] 60534- 8806 Mar, Lumbago 724.2 ; Vitamin D deficiency 268.9 ; Anxiety 300.00 ; Allergic rhinitis 477.9 and Contraceptive surveillance V25.[address] 38699- 3437 February, 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 ; Chronic pain 338.29 and Vaginal discharge 623.5 [place] [address] 86715- 5546 February, [address] 13188- 5710 February, [place] [address] 10810- 9546 Jan, [place] [address] [place] [address]- 8412 13 Jan, 2015 [facility] [place] [facility] [address] [id number] [place] [address]- 4916 26 Dec, 2014 [facility] [place] [facility] [address] [id number] [place] [address]- 1210 26 Dec, 2014 [facility] [place] [facility] [address] [id number] [place] [address]- 1242 Dec, [facility] [place] [facility] [address] [id number] [place] [address]- 7786 Dec, [facility] [place] [facility] [address] [id number] [place] [address]- 2840 Dec, [facility] [place] [facility] [address] [id number] [place] [address]- 5120 18 Dec, 2014 [facility] [place] [facility] [address] [id number] [place] [address]- 2726 Dec, [facility] [place] [facility] [address] [id number] [place] [address]- 3777 Dec, [facility] [place] [facility] [address] [id number] [place] [address]- 7605 Dec, [facility] [place] [facility] [address] [facility] [id number] [place] [address]- 0969 Dec, [facility] [place] [facility] [address] [id number] [place] [address]- 3186 Dec, [facility] [place] [facility] [address] [id number] [place] [address]- 9707 Dec, [facility] [place] [facility] [address] [id number] [place] [address]- 8785 Nov, [facility] [place] [facility] [address] [id number] [place] [address]- 1409 Nov, [facility] [place] [facility] [address] [id number] [place] [address]- 3228 24 Nov, 2014 [facility] [place] [facility] [address] [id number] [place] [address]- 8846 24 Nov, 2014 [facility] [place] [facility] [address] [id number] [place] [address]- 6706 23 Nov, 2014 [facility] [place] [facility] [address] [facility] [id number] [place] [address]- 0756 23 Nov, 2014 [facility] [place] [facility] [address] [facility] [id number] [place] [address]- 8676 16 Nov, 2014 [facility] [place] [facility] [address] [id number] [place] [address]- 6006 16 Nov, 2014 [facility] [place] [facility] [address] [facility] [id number] [place] [address]- 6310 13 Nov, 2014 [facility] [place] [facility] [address] [facility] [id number] [place] [address]- 0821 13 Nov, 2014 [facility] [place] [facility] [address] [facility] [id number] [place] [address]- 5338 13 Nov, 2014 [facility] [place] [facility] [address] [facility] [id number] [place] [address]- 0089 13 Nov, 2014 [facility] [place] [facility] [address] [facility] [id number] [place] [address]- 2429 13 Nov, 2014 [facility] [place] [facility] [address] [facility] [id number] [place] [address] 2546 13 Nov, 2014 [facility] [place] [facility] [address] [facility] [id number] [place] [address]- 2546 13 Nov, 2014 [facility] [place] [facility] [address] [facility] [id number] [place] [address]- 7186 13 Nov, 2014 [facility] [place] [facility] [address] [facility] [id number] [place] [address]- 7936 10 Nov, 2014 [facility] [place] [facility] [address] [facility] [id number] [place] [address]- 1468 10 Nov, 2014 [facility] [place] [facility] [address] [id number] [place] [address]- 6238 Nov, 2014 [facility] [place] [facility] [address] [id number] [place] [address]- 4355 Nov, 2014 [facility] [place] [facility] [address] [id number] [place] [address]- 6509 Nov, 2014 [facility] [place] [facility] [address] [id number] [place] [address]- 3853 Nov, [facility] [place] [facility] [address] [id number] [place] [address]- 2900 Nov, [facility] [place] [facility] [address] [id number] [place] [address] Oct, [facility] [place] [facility] [address] [id number] [place] [address] Oct, [facility] [place] [facility] [address] [id number] [place] [address] Oct, [facility] [place] [facility] [address] [id number] [place] [address] Oct, [facility] [place] [facility] [address] [id number] [place] [address] Oct, [facility] [place] [facility] [address] [id number], [place] [address] Oct, [facility] [place] [facility] [address] [id number], [place] [address] Oct, [facility] [place] [facility] [address] [id number] [place] [address] Oct, [facility] [place] [facility] [address] [id number] [place] [address] Oct, [facility] [place] [facility] [address] [id number] [place] [address] Oct, [facility] [place] [facility] [address] [id number], [place] [address] Oct, [facility] [address] [id number] [place] [address] Oct, [facility] [place] [facility] [address] [id number] [place] [address] Oct, [facility] [place] [facility] [address] [id number] [place] [address] Oct, [facility] [place] [facility] [address] [id number] [place] [address] Oct, [facility] [place] [facility] [address] [id number] [place] [address] Oct, [facility] [place] [facility] [address] [id number] [place] [address] Oct, [facility] [address] [id number] [place] [address] Oct, [facility] [place] [facility] [address] [id number] [place] [address] Oct, [facility] [place] [facility] [address] [address] [id number] [place] [address] Oct, [facility] [place] [facility] [address] [facility] [id number] [place] [address] 34[address] Oct, [facility] [place] [facility] [address] [id number] [place] [address] Sep, [facility] [place] [facility] [address] [id number], [place] [address] 29 Sep, 2014 [facility] [place] [facility] [address] [id number] [place] [address]- 2021 Sep, [facility] [place] [facility] [address] [id number] [place] [address]60 Sep, [facility] [place] [facility] [address] [id number] [place] [address] 9129 17 Sep, 2014 [facility] [place] [facility] [address] [id number] [place] [address]- 1241 17 Sep, 2014 [facility] [place] [facility] [address] [id number] [place] [address]- 6846 15 Sep, 2014 [facility] [place] [facility] [address] [id number] [place] [address]- 2416 15 Sep, 2014 [facility] [place] [facility] [address] [id number] [place] [address]- 6706 12 Sep, 2014 [facility] [place] [facility] [address] [id number] [place] [address]- 2275 12 Sep, 2014 [facility] [place] [facility] [address] [id number] [place] [address]- 7499 Sep, [facility] [place] [facility] [address] [id number] [place] [address]- 4667 Sep, [facility] [place] [facility] [address] [id number] [place] [address]- 7601 Sep, [facility] [place] [facility] [address] [id number] [place] [address]- 5391 Sep, [facility] [place] [facility] [address] [id number] [place] [address]- 8401 Sep, [facility] [place] [facility] [address] [id number] [place] [address]- 4472 Sep, [facility] [place] [facility] [address] [id number] [place] [address]- 9336 Sep, [facility] [place] [facility] [address] [id number] [place] [address]- 4470 Sep, [facility] [place] [facility] [address] [id number] [place] [address]- 7126 Sep, [facility] [place] [facility] [address] [id number] [place] [address] 08 Sep, 2014 [facility] [place] [facility] [address] [id number] [place] [address]- 0960 Aug, [facility] [place] [facility] [address] [id number] [place] [address]- 7937 Aug, [facility] [place] [facility] [address] [id number] [place] [address]- 6351 Aug, [facility] [place] [facility] [address] [id number] [place] [address]- 8850 Aug, [facility] [place] [facility] [address] [id number] [place] [address]- 4882 Aug, [facility] [place] [facility] [address] [id number] [place] [address]- 3708 Aug, [facility] [place] [facility] [address] [id number] [place] [address]- 6047 Aug, [facility] [place] [facility] [address] [id number] [place] [address]- 6148 Aug, [facility] [place] [facility] [address] [id number] [place] [address]- 1023 Aug, [facility] [place] [facility] [address] [id number] [place] [address]- 3291 Jul, [facility] [place] [facility] [address] [id number] [place] [address]- 2412 Jul, [facility] [place] [facility] [address] [id number], [place] [address] 40[address] Jul, [facility] [place] [facility] [address] [id number], [place] [address]- 7985 Jul, [facility] [place] [facility] [address] [id number] [place] [address]- 5342 Jul, [facility] [place] [facility] [address] [id number], [place] [address]63 Jul, [facility] [place] [facility] [address] [id number], [place] [address] 7[address] Jul, [facility] [place] [facility] [address] [id number] [place] [address]- 6472 13 Jul, 2013 [facility] [place] [facility] [address] [id number] [place] [address]- 2066 10 Jul, 2013 [facility] [place] [facility] [address] [id number] [place] [address]- 8856 10 Jul, 2013 [facility] [place] [facility] [address] [id number] [place] [address]- 9776 10 Jul, 2013 [facility] [place] [facility] [address] [id number] [place] [address] 2541 10 Jul, 2013 [facility] [place] [facility] [address] [id number] [place] [address]- 1683 07 Jul, 2014 [facility] [place] [facility] [address] [id number] [place] [address]- 9566 07 Jul, 2014 [facility] [place] [facility] [address] [id number] [place] [address]- 5052 30 Sep, 2013 [facility] [place] [facility] [address] [id number] [place] [address] 254 30 Sep, 2013 [facility] [place] [facility] [address] [id number] [place] [address] 2546 25 Sep, 2013 [facility] [place] [facility] [address] [id number] [place] [address] 2543 25 Sep, 2013 [facility] [place] [facility] [address] [id number] [place] [address] 2546 25 Sep, 2013 [facility] [place] [facility] [address] [id number] [place] [address] 2546 25 Sep, 2013 [facility] [place] [facility] [address] [id number] [place] [address] 2546 24 Sep, 2013 [facility] [place] [facility] [address] [id number] [place] [address] 2546 24 Sep, 2013 [facility] [place] [facility] [address] [id number] [place] [address] 2545 22 Sep, 2013 [facility] [place] [facility] [address] [id number] [place] [address]- 0633 22 Sep, 2013 [facility] [place] [facility] [address] [id number] [place] [address]- 2248 17 Sep, 2013 [facility] [place] [facility] [address] [id number] [place] [address]- 4660 17 Sep, 2013 [facility] [place] [facility] [address] [id number] [place] [address]- 2806 16 Sep, 2013 [facility] [place] [facility] [address] [id number] [place] [address]- 6097 16 Sep, 2013 [facility] [place] [facility] [address] [id number] [place] [address]- 5902 15 Jun, 2013 [facility] [place] [facility] [address] [id number] [place] [address]- 7884 15 Jun, 2013 [facility] [place] [facility] [address] [id number] [place] [address]- 8713 12 Jun, 2013 [facility] [place] [facility] [address] [id number] [place] [address]- 1668 12 Jun, 2013 [facility] [place] [facility] [address] [id number] [place] [address]- 3360 11 Jun, 2013 [facility] [place] [facility] [address] [id number] [place] [address]- 7144 11 Jun, 2013 [facility] [place] [facility] [address] [id number] [place] [address]- 2542 11 Jun, 2013 [facility] [place] [facility] [address] [id number] [place] [address]- 2549 11 Jun, 2013 [facility] [place] [facility] [address] [id number] [place] [address]- 2547 09 Sep, 2013 [facility] [place] [facility] [address] [id number] [place] [address]- 6504 09 Sep, 2013 [facility] [place] [facility] [address] [id number] [place] [address]- 7168 Jun, [facility] [place] [facility] [address] [id number] [place] [address]- 1200 Jun, [facility] [place] [facility] [address] [id number] [place] [address]- 3025 May, [facility] [place] [facility] [address] [id number] [place] [address]- 4432 May, [facility] [place] [facility] [address] [id number] [place] [address]- 6318 May, [facility] [place] [facility] [address] [id number] [place] [address]- 9792 May, [facility] [place] [facility] [address] [id number] [place] [address]- 8921 May, [facility] [place] [facility] [address] [id number] [place] [address]- 5731 May, [facility] [place] [facility] [address] [id number] [place] [address]- 2382 May, [facility] [place] [facility] [address] [id number] [place] [address]- 7158 May, [facility] [place] [facility] [address] [id number] [place] [address]- 8253 May, [facility] [place] [facility] [address] [id number] [place] [address]- 2112 May, [facility] [place] [facility] [address] [id number] [place] [address]- 9358 May, [facility] [place] [facility] [address] [id number] [place] [address]- 7159 May, [facility] [place] [facility] [address] [id number] [place] [address]- 5742 May, [facility] [place] [facility] [address] [id number] [place] [address]- 7591 Apr, [facility] [place] [facility] [address] [id number] [place] [address]- 9959 Apr, [facility] [place] [facility] [address] [id number] [place] [address]- 0642 Apr, [facility] [place] [facility] [address] [id number] [place] [address]- 2562 Apr, [facility] [place] [facility] [address] [id number] [place] [address]- 8526 Apr, [facility] [place] [facility] [address] [id number] [place] [address]- 5154 Mar, [facility] [place] [facility] [address] [id number] [place] [address]- 4034 Mar, [facility] [place] [facility] [address] [id number] [place] [address]- 7074 Mar, [facility] [place] [facility] [address] [id number] [place] [address]- 8325 February, [facility] [address] [id number] [place] [address]- 3440 February, [facility] [place] [facility] [address] [id number] [place] [address]- 4401 February, [facility] [address] [id number] [place] [address]- 9434 February, [facility] [place] [facility] [address] [id number] [place] [address]- 5330 February, [facility] [place] [facility] [address] [id number] [place] [address]- 1473 February, [facility] [place] [facility] [address] [id number] [place] [address]- 7006 February, [facility] [place] [facility] [address] [id number] [place] [address]- 6906 February, [facility] [place] [facility] [address] [id number] [place] [address] February, [facility] [place] [facility] [address] [id number] [place] [address]- 5052 Jan, [facility] [place] [facility] [address] [id number] [place] [address]- 0456 Jan, [facility] [place] [facility] [address] [id number] [place] [address]- 0651 Jan, [facility] [place] [facility] [address] [id number] [place] [address]- 5004 Jan, [facility] [place] [facility] [address] [id number] [place] [address]- 4829 Jan, [facility] [place] [facility] [address] [id number] [place] [address]- 7613 Dec, [facility] [place] [facility] [address] [id number] [place] [address]- 1090 Dec, [facility] [place] [facility] [address] [id number] [place] [address]- 3598 Dec, [facility] [place] [facility] [address] [id number] [place] [address]- 5783 Dec, [facility] [place] [facility] [address] [id number] [place] [address]- 9242 Dec, [facility] [place] [facility] [address] [id number] [place] [address]- 6660 Nov, [facility] [place] [facility] [address] [id number] [place] [address]- 7324 Nov, [facility] [place] [facility] [address] [id number] [place] [address]- 4302 Nov, [facility] [place] [facility] [address] [id number] [place] [address]- 2714 Nov, [facility] [place] [facility] [address] [id number] [place] [address]- 5232 Oct, [facility] [place] [facility] [address] [id number] [place] [address]- 0730 30 Oct, 2013 [facility] [place] [facility] [address] [id number] [place] [address]- 9112 Oct, [facility] [place] [facility] [address] [id number] [place] [address]- 6639 Oct, [facility] [place] [facility] [address] [id number] [place] [address]- 3861 Oct, [facility] [place] [facility] [address] [id number] [place] [address]- 7702 Oct, [facility] [place] [facility] [address] [id number] [place] [address]- 3977 Oct, [facility] [place] [facility] [address] [id number] [place] [address]- 2917 Oct, [facility] [place] [facility] [address] [id number] [place] [address]- 7753 Oct, [facility] [place] [facility] [address] [id number] [place] [address]- 9684 Oct, [facility] [place] [facility] [address] [id number] [place] [address]- 0754 Aug, [facility] [place] [facility] [address] [id number] [place] [address]- 6079 Aug, [facility] [place] [facility] [address] [id number] [place] [address]- 9404 Jul, [facility] [place] [facility] [address] [id number] [place] [address]- 6842 Jul, [facility] [place] [facility] [address] [id number] [place] [address]- 6335 Jul, [facility] [place] [facility] [address] [id number] [place] [address]- 0330 Jul, [facility] [place] [facility] [address] [id number] [place] [address]- 9525 Jul, [facility] [place] [facility] [address] [id number] [place] [address]- 6658 Jul, [facility] [place] [facility] [address] [id number] [place] [address]- 3694 Apr, [facility] [place] [facility] [address] [id number] [place] [address]- 7002 Dec, [facility] [place] [facility] [address] [id number] [place] [address]- 3192 Nov, [facility] [place] [facility] [address] [id number] [place] [address]- 9028 Nov, [facility] [place] [facility] [address] [id number] [place] [address]- 6120 Nov, [facility] [place] [facility] [address] [id number] [place] [address]- 8171 Oct, [facility] [place] [facility] [address] [id number] [place] [address]- 6507 Sep, [facility] [place] [facility] [address] [id number] [place] [address]- 4855 Sep, [facility] [place] [facility] [address] [id number] [place] [address]- 6036 Sep, [facility] [place] [facility] [address] [id number] [place] [address]- 4936 Sep, [facility] [place] [facility] [address] [id number], [place] [address]- 8418 Aug, [facility] [place] [facility] [address] [id number] [place] [address]- 7405 Aug, [facility] [place] [facility] [address] [id number] [place] [address]- 7544 Jul, [facility] [place] [facility] [address] [id number] [address]31 Jul, [facility] [place] [facility] [address] [id number], [place] [address]- 7577 28 Jun, 2012 [facility] [place] [facility] [address] [id number] [place] [address]- 1996 26 Jun, 2012 [facility] [place] [facility] [address] [id number] [place] [address]- 7226 24 Jun, 2012 [facility] [place] [facility] [address] [id number] [place] [address]- 0616 24 Jun, 2012 [facility] [place] [facility] [address] [id number] [place] [address]- 4980 12 Jun, 2012 [facility] [place] [facility] [address] [id number] [place] [address]- 3867 31 Apr, 2012 [facility] [place] [facility] [address] [id number] [place] [address]- 7752 30 Apr, 2012 [facility] [place] [facility] [address] [id number] [place] [address]- 2583 Apr, [facility] [place] [facility] [address] [id number] [place] [address]- 5874 Mar, [facility] [place] [facility] [address] [id number] [place] [address]- 8809 Mar, [facility] [place] [facility] [address] [id number] [place] [address]- 3261 Mar, [facility] [place] [facility] [address] [id number] [place] [address]- 3082 February, [facility] [place] [facility] [address] [id number] [place] [address]- 6944 Jan, [facility] [place] [facility] [address] [id number] [place] [address]- 8005 Dec, [facility] [place] [facility] [address] [id number] [place] [address]- 1295 Dec, [facility] [place] [facility] [address] [id number] [place] [address]- 5757 Dec, [facility] [place] [facility] [address] [id number] [place] [address]- 1778 19 Dec, 2011 [facility] [place] [facility] [address] [id number] [place] [address]- 6420 Dec, [facility] [place] [facility] [address] [id number] [place] [address]- 5876 14 Nov, 2011 [facility] [place] [facility] [address] [id number] [place] [address]- 1466 13 Nov, 2011 [facility] [place] [facility] [address] [id number] [place] [address]- 0636 Oct, [facility] [place] [facility] [address] [id number] [place] [address]- 9642 Oct, [facility] [place] [facility] [address] [id number] [place] [address]- 9719 Oct, [facility] [place] [facility] [address] [id number] [place] [address]- 1813 Sep, [facility] [place] [facility] [address] [id number] [place] [address]- 6081 Aug, [facility] [place] [facility] [address] [id number] [place] [address]- 8338 Aug, [facility] [place] [facility] [address] [id number] [place] [address]- 4091 28 Jul, 2011 [facility] [place] [facility] [address] [id number] [place] [address]- 9321 24 Jul, 2011 [facility] [place] [facility] [address] [id number] [place] [address]- 8327 19 Jul, 2011 [facility] [place] [facility] [address] [id number] [place] [address]- 5396 13 Jan, 2011 [facility] [place] [facility] [address] [id number] [place] [address]- 2547 29 Sep, 2010 [facility] [place] [facility] [address] [id number] [place] [address]- 8873 Sep, [facility] [place] [facility] [address] [id number] [place] [address]- 2653 Sep, [facility] [place] [facility] [address] [id number] [place] [address]- 2836 Sep, [facility] [place] [facility] [address] [facility] [id number] [place] [address]- 4756 Sep, [facility] [place] [facility] [address] [id number] [place] [address]- 1524 Aug, [facility] [place] [facility] [address] [id number] [place] [address]- 4934 16 Aug, 2010 [facility] [place] [facility] [address] [id number] [place] [address]- 3680 08 Aug, 2010 [facility] [place] [facility] [address] [id number] [place] [address]- 8473 Jul, [facility] [place] [facility] [address] [id number], [place] [address]- 8074 Jul, [facility] [place] [facility] [address] [id number], [place] [address]- 9969 Jul, [facility] [place] [facility] [address] [id number], [place] [address]- 3552 May, [facility] [place] [facility] [address] [id number], [place] [address]- 3221 13 Apr, 2010 [facility] [place] [facility] [address] [id number], [place] [address]- 7034 18 Dec, 2009 [facility] [place] [facility] [address] [id number], [place] [address]- 9896 17 Sep, 2009 [facility] [place] [facility] [address] [id number], [place] [address]- 0104 17 Sep, 2009 [facility] [place] [facility] [address] [facility] [id number], [place] [address]- 2156 Aug, [facility] [place] [facility] [address] [facility] [id number] [place] [address] Aug, [facility] [address] [facility] [id number] [place] [address] Jul, [facility] [address] [facility] [id number] [place] [address] Mar, IMMUNIZATIONS No Known Immunizations SOCIAL HISTORY Never Assessed REASON FOR VISIT DM ed PLAN OF CARE VITAL SIGNS MEDICATIONS Medication Instructions Dosage Frequency Start Date End Date Duration Status BD Pen Needle Ultrafine 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 Active Levemir Flexpen 100 UNIT/ML Subcutaneous twice a day 21 units 12h Active NovoLog Flexpen 100 UNIT/ML Subcutaneous before meals 3 times daily 20 units Active RESULTS No Results PROCEDURES No [...]
--- OUTSIDE RECORDS SUMMARY | 2018-10-08 20:10 | XMS REPORT ---
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 Active 762250848 Problem Edema of both feet R60.0 Active 893566954 Problem Tobacco abuse Z72.0 Active 24304781 Problem Chronic migraine G43.709 Active 56828458 Problem Mixed hyperlipidemia E78.2 Active 924593896 Problem Spinal stenosis, lumbar region M48.06 Active 83598514 Problem Anxiety F41.9 Active 17778409 Problem Radiculopathy of lumbar region M54.16 Active 834444219 Problem Bulging lumbar disc M51.26 Active 586396002 Problem Asthma J45.909 Active 988752004 Problem Essential hypertension I10 Active 03814217 ALLERGIES No Information ENCOUNTERS Encounter Location Date Diagnosis [facility] [id number] [address] February, [facility] [id number] [address] February, Chronic pain G89.29 [facility] [address], [place] [address] Jan, Chronic pain G89.29 [facility] [id number], [place] [address] Jan, 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 care 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 Z79.4 [facility] [id number] [place] [address] 76843- 4737 Jan, Encounter for Depo-Provera contraception Z30.42 [facility] [id number] [place] [address] 33650- 7764 Jan, [facility] [address] 36736- 5230 Jan, Chronic pain G89.29 and Anxiety F41.9 [facility] [address] 88357- 9476 Jan, [facility] [address] 38081- 2382 Dec, [facility] [address] 97203- 9740 Dec, Gastroesophageal reflux disease without esophagitis K21.9 and Anxiety F41.9 [facility] [id number] [place] [address] 10274- 2045 Dec, Essential hypertension I10 ; Mixed hyperlipidemia E78.2 ; Type 2 diabetes mellitus with diabetic neuropathy, unspecified E11.40 ; senior care 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 Z79.4 ; Chronic pain G89.29 ; HSV (herpes simplex virus) infection B00.9 ; Anxiety F41.9 and Gastroesophageal reflux disease without esophagitis K21.9 [facility] [id number] [place] [address] 39489- 7176 Dec, Chronic pain G89.29 and Chronic migraine G43.709 [facility] [id number] [place] [address] 41032- 7387 Nov, [facility] [id number] [place] [address] 95889- 2249 Nov, Essential hypertension I10 and Chronic pain G89.29 [facility] [address] 86591- 3290 Nov, Chronic pain G89.29 ; Essential hypertension I10 and Type 2 diabetes mellitus without complication E11.9 [facility] [id number] [place] [address] 28948- 4127 Oct, Chronic pain G89.29 [facility] [id number] [place] [address] 83367- 6674 Oct, [facility] [address] 19215- 6334 Sep, Type 2 diabetes mellitus without complication E11.9 ; Essential hypertension I10 ; long term care 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 (current) use of insulin Z79.4 ; Chronic migraine G43.709 ; Chronic pain G89.29 and Acute non-recurrent maxillary sinusitis J01.00 [facility] [id number] [place] [address] 15367- 0955 Sep, Encounter for Depo-Provera contraception Z30.42 [facility] [id number] [place] [address] 30575- 9077 Sep, Chronic pain G89.29 and Radiculopathy of lumbar region M54.16 [facility] [id number] [place] [address] 41090- 0287 Sep, [facility] [id number] [place] [address] 67250- 0891 Sep, [facility] [id number] [place] [address] 00575- 9484 Aug, Type 2 diabetes mellitus without complication E11.9 [facility] [id number] [place] [address] 57262- 2440 Aug, [facility] [id number] [place] [address] 29559- 1543 Aug, Radiculopathy of lumbar region M54.16 and Chronic pain G89.29 [facility] [id number] [place] [address] 13248- 4650 Aug, Type 2 diabetes mellitus without complication E11.9 [facility] [address] [facility] [id number] [address] 2887 Aug, Type 2 diabetes mellitus without complication E11.9 [facility] [address] [place] [address] 33461- 3896 Jul, Type 2 diabetes mellitus without complication E11.9 [facility] [address] [place] [address] 53882- 9486 Jul, [facility] [id number] [place] [address] 86844 2540 Jul, Chronic pain G89.29 [facility] [id number] [place] [address] 39818- 7866 Jul, [facility] [address] [place] [address] 91530- 1931 Jul, [facility] [id number] [place] [address] 98427- 9756 Jul, Type 2 diabetes mellitus without complication E11.9 [facility] [address], [place] [address]- 4428 Jul, [facility] [address] [place] [address] 42166- 6125 Jul, Type 2 diabetes mellitus without complication E11.9 [facility] [address], [place] [address] 0412 Jul, [facility] [address], [place] [address]- 2548 Jul, [facility] [address] [place] [address] 91340- 4042 Jul, [facility] [address] [place] [address] 17608- 4653 Jun, Type 2 diabetes mellitus without complication E11.9 [facility] [address], [place] [address]- 3115 Jun, Chronic migraine G43.709 ; Type 2 diabetes mellitus without complication E11.9 ; Calculus of right kidney N20.0 ; Yeast dermatitis B37.2 and HSV (herpes simplex virus) infection B00.9 [facility] [id number] [place] [address] 28403- 5168 Jun, Type 2 diabetes mellitus without complication E11.9 [facility] [address] 09723- 7102 Jun, [facility] [address] 73708- 5889 Jun, Radiculopathy of lumbar region M54.16 and Chronic pain G89.29 [facility] [address] 52379- 4247 Jun, Encounter for Depo-Provera contraception Z30.42 [facility] [address] 72184- 8099 Jun, Type 2 diabetes mellitus without complication E11.9 [facility] [id number] [place] [address] 47772- 7419 Jun, [facility] [id number] [place] [address] 81979 -8466 May, Acute nasopharyngitis (common cold) J00 [facility] [id number] [place] [address] 43440- 4153 May, Chronic pain G89.29 [facility] [address] 87320- 4201 May, Headache following lumbar puncture G97.1 [facility] [address] 46770- 5160 May, Radiculopathy of lumbar region M54.16 [facility] [address] 11730- 3872 Apr, [facility] [address] 64053- 2601 Apr, Type 2 diabetes mellitus without complication E11.9 ; Chronic pain G89.29 ; Essential hypertension I10 ; Radiculopathy of lumbar region M54.16 ; Spinal stenosis, lumbar region M48.06 ; Gastroesophageal reflux disease without esophagitis K21.9 ; HSV (herpes simplex virus) infection B00.9 ; Mixed hyperlipidemia E78.2 ; Anxiety F41.9 and Asthma J45.[address] 96744- 6282 Apr, Encounter for Depo-Provera contraception Z30.[address] 578012- 1770 Apr, Chronic pain G89.29 and Anxiety F41.[address] 30718- 3748 Mar, [address] 67496- 6123 Mar, [address] 69307- 5649 Mar, Mixed hyperlipidemia E78.[address] 15125- 2488 Mar, Type 2 diabetes mellitus without complication E11.9 ; Chronic pain G89.29 ; Essential hypertension I10 ; Radiculopathy of lumbar region M54.16 ; Spinal stenosis, lumbar region M48.06 ; Gastroesophageal reflux disease without esophagitis K21.9 ; HSV (herpes simplex virus) infection B00.9 ; Mixed hyperlipidemia E78.2 and Anxiety F41.[address] 18066- 1733 Mar, [address] 86975- 6442 Mar, [address] 58956- 3831 Mar, [facility] [address], [place] [address] 5603 February, Chronic pain G89.29 [facility] [id number] [place] [address] 97923- 4266 February, [facility] [id number] [place] [address] 30954- 8305 Jan, Chronic pain G89.29 [facility] [id number] [place] [address] 68854- 1678 Jan, Type 2 diabetes mellitus without complication E11.9 [facility] [id number] [place] [address] 99890- 6641 Jan, [facility] [id number] [place] [address] 11544- 0556 Jan, [facility] [id number] [place] [address] 61187- 4205 Jan, [facility] [address] [place] [address] 49264- 1395 Jan, Type 2 diabetes mellitus without complication [...] J01.00 and Encounter for Depo-Provera contraception Z30.42 [facility] [address] [place] [address] 38256- 6613 Dec, Chronic pain G89.29 [facility] [address] [place] [address] 93524- 0550 Dec, Abnormal ankle brachial index (BERNARDINO) R68.89 [facility] [id number] [place] [address] 82665- 8556 Dec, [facility] [address] [place] [address] 30502- 8185 Dec, Routine gynecological examination Z01.419 ; Chronic [...] virus) infection B00.9 and Allergic rhinitis 477.9 [facility] [id number] [place] [address] 69060- 9852 Nov, Chronic pain G89.29 [facility] [address] [place] [address] 34545- 9533 02 Nov, 2016 Chronic pain G89.29 ; [...] mucoid otitis media of both ears H65.113 [facility] [address] [place] [address] 24719- 5221 Oct, [facility] [address] [place] [address] 58850- 5857 Oct, Chronic pain G89.29 [facility] [id number] [place] [address] 78695- 5239 Oct, Chronic pain G89.29 [facility] [address] [place] [address] 93892- 1803 Sep, Chronic pain G89.29 ; Type 2 diabetes mellitus without complication E11.9 ; Essential hypertension I10 ; Radiculopathy of lumbar region M54.16 ; Spinal stenosis, lumbar region M48.06 ; Gastroesophageal reflux disease without esophagitis K21.9 ; Encounter for surveillance of injectable contraceptive Z30.42 ; Bilateral cold feet R20.9 ; Pain of left foot M79.672 and Pain in right foot M79.671 [facility] [id number] [place] [address] 22219- 1225 Sep, [facility] [address] 37793- 0698 Aug, [facility] [address] 25036- 7087 Aug, [facility] [address] 48037- 6150 Aug, Chronic pain G89.29 ; Type 2 diabetes mellitus without complication E11.9 ; Essential hypertension I10 ; Rash and nonspecific skin eruption R21 and Upper respiratory infection, acute J06.9 [facility] [address] 14771- 5086 Aug, [facility] [address] 65193- 4980 Aug, [facility] [address] 53872- 3432 Jul, [facility] [address] 63187- 0461 Jul, Dysuria R30.0 ; Encounter for Depo-Provera contraception Z30.42 ; Herpes simplex B00.9 ; Nausea & vomiting R11.2 and Asthma J45.909 [facility] [address] 77000- 7245 Jun, Dysuria R30.0 [facility] [address] 57709- 4509 Jun, Dysuria R30.0 [facility] [address] 80159- 6125 15 Jun, 2016 [facility] [address] [place] [address] 90668- 3627 Jun, [facility] [id number] [place] [address] 23696- 2025 May, [facility] [id number] [place] [address] 65625- 1948 May, [facility] [id number] [place] [address] 69547- 9538 May, Chronic pain G89.29 ; Essential hypertension I10 ; Type 2 diabetes mellitus without complication E11.9 ; Edema of both feet R60.0 and Rash and nonspecific skin eruption R21 [facility] [id number] [place] [address] 04365- 3440 Apr, [facility] [id number] [place] [address] 12815- 2043 Mar, Carpal tunnel syndrome, left upper limb G56.02 and Carpal tunnel syndrome, right upper limb G56.01 [facility] [id number] [place] [address] 61565- 2411 Mar, [facility] [address] [place] [address] 52053- 2486 Mar, Encounter for Depo-Provera contraception Z30.42 [facility] [id number] [place] [address] 14414- 2324 February, [facility] [id number] [place] [address] 78022- 4325 February, [facility] [id number] [place] [address] 91805- 4442 February, Chronic pain G89.29 ; Essential hypertension I10 ; Type 2 diabetes mellitus without complication E11.9 ; HSV (herpes simplex virus) infection B00.9 ; Anxiety F41.9 ; Hypersomnia G47.10 ; Tobacco abuse Z72.0 ; Hand pain, left M79.642 ; Hand pain, right M79.641 ; Left foot pain M79.672 and Heart palpitations R00.[address] 89901- 0615 Jan, [facility] [address] 76123- 9532 Jan, [facility] [address] 29792- 1184 Jan, [facility] [address] 41031- 9710 Jan, [address] 57104- 1797 Jan, Upper respiratory infection J06.9 and Type 2 diabetes mellitus without complication E11.[address] 23406- 9695 Dec, [address] 61655- 3248 Dec, Chronic pain G89.29 ; Essential hypertension I10 ; Type 2 diabetes mellitus without complication E11.9 ; HSV (herpes simplex virus) infection B00.9 ; Anxiety F41.9 ; Upper respiratory infection J06.9 ; Hypersomnia G47.10 and Tobacco abuse Z72.0 [address] [id number] [place] [address] 90577- 4511 Dec, Encounter for Depo-Provera contraception Z30.42 [address] [id number] [place] [address] 60683- 2367 Dec, [address] 50921- 0465 Dec, Chronic pain G89.29 ; Sinusitis J32.9 ; Snoring R06.83 and Daytime hypersomnia G47.[address] 53353- 9156 Nov, HSV (herpes simplex virus) infection B00.9 ; Encounter for Papanicolaou smear for cervical cancer screening Z12.4 ; Screening for STD sexually transmitted disease Z11.3 and Bartholin's gland cyst N75.0 [facility] [id number] [place] [address] 76586- 0480 Nov, [facility] [address] [place] [address] 57976- 6177 Nov, [facility] [address] [place] [address] 59540- 7839 Nov, Essential hypertension I10 ; Type 2 diabetes mellitus without complication E11.9 ; HSV (herpes simplex virus) infection B00.9 ; Spinal stenosis, lumbar region M48.06 and Vaginal yeast infection B37.3 [facility] [address] [place] [address] 09996- 2937 Nov, [facility] [address] [place] [address] 11350- 0513 Nov, [facility] [id number] [place] [address] 07896- 0623 Oct, [facility] [address] [place] [address] 97512- 6425 Oct, HSV (herpes simplex virus) infection B00.9 ; Yeast infection B37.9 ; Change in bowel habit R19.4 ; Nausea & vomiting R11.2 and Gastroesophageal reflux disease without esophagitis K21.9 [facility] [address] [place] [address] 87834- 3978 Oct, [facility] [address] [place] [address] 41668- 6566 Oct, Type 2 diabetes mellitus without complication E11.9 ; Essential hypertension I10 and Acute maxillary sinusitis, recurrence not specified J01.00 [facility] [address] [place] [address] 99954- 9961 Oct, [facility] [place] [facility] [id number] [place] [address] 28953- 8229 Oct, [address] 97382- 4803 Oct, Exposure to head lice Z20.7 ; Blood glucose abnormal R73.09 ; Boil of buttock L02.32 and Type 2 diabetes mellitus without complication E11.[address] 27747- 7944 Oct, [address] 48410- 3819 Sep, [address] 40033- 0003 Sep, [address] 58725- 7430 Aug, Encounter for Depo-Provera contraception Z30.[address] 61133- 1031 Aug, Anxiety F41.9 ; Spinal stenosis, lumbar region M48.06 ; Radiculopathy of lumbar region M54.16 ; Asthma J45.909 ; GERD (gastroesophageal reflux disease) K21.9 ; Essential hypertension I10 and Long-term use of high- risk medication Z79.[address] 07739- 0075 Jul, [address] 93340- 9543 Jun, Hemorrhoid 455.[address] 72099- 5158 Jun, [address] 74456- 2435 Jun, Anxiety 300.00 ; Asthma 493.90 ; Hyperhidrosis 705.21 ; Chest discomfort 786.59 and Upper respiratory infection 465.[id number] [place] [address] 71245- 2187 May, Encounter for Depo-Provera contraception V25.49 [facility] [address] 32829- 3852 May, [facility] [address] 48221- 6640 May, [facility] [address] 35703- 9239 May, Spinal stenosis of lumbar region with radiculopathy 724.02 ; Bulging of intervertebral disc between L4 and L5 722.10 ; GERD ( gastroesophageal reflux disease) 530.81 ; Chronic pain 338.29 ; Declining mobility 799.89 and Epigastric pain 789.06 [facility] [address] 46283- 5311 Apr, [address] 69289- 6551 Apr, Nausea 787.02 and Heart burn 787.[address] 16911- 7946 Mar, Lumbago 724.2 ; Vitamin D deficiency 268.9 ; Anxiety 300.00 ; Allergic rhinitis 477.9 and Contraceptive surveillance V25.[address] 97930- 1568 February, 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 ; Chronic pain 338.29 and Vaginal discharge 623.5 [facility] [address] 28793- 8218 February, [address] 68307- 6359 February, [facility] [address] 02049- 5388 Jan, [facility] [address] [address]- 9865 13 Jan, 2015 [facility] [place] [facility] [address] [id number] [place] [address]- 4744 26 Dec, 2014 [facility] [place] [facility] [address] [id number] [place] [address]- 5484 26 Dec, 2014 [facility] [place] [facility] [address] [id number] [place] [address]- 1217 Dec, [facility] [place] [facility] [address] [id number] [place] [address]- 7629 Dec, [facility] [place] [facility] [address] [id number] [place] [address]- 9628 Dec, [facility] [place] [facility] [address] [id number] [place] [address]- 5400 18 Dec, 2014 [facility] [place] [facility] [address] [id number] [place] [address]- 7374 Dec, [facility] [place] [facility] [address] [id number] [place] [address]- 5610 Dec, [facility] [place] [facility] [address] [id number] [place] [address]- 4597 Dec, [facility] [place] [facility] [address] [facility] [id number] [place] [address]- 0111 Dec, [facility] [place] [facility] [address] [id number] [place] [address]- 5457 Dec, [facility] [place] [facility] [address] [id number] [place] [address]- 0278 Dec, [facility] [place] [facility] [address] [id number] [place] [address]- 7108 Nov, [facility] [place] [facility] [address] [id number] [place] [address]- 9606 Nov, [facility] [place] [facility] [address] [id number] [place] [address]- 7745 24 Nov, 2014 [facility] [place] [facility] [address] [id number] [place] [address]- 6556 24 Nov, 2014 [facility] [place] [facility] [address] [id number] [place] [address]- 6836 23 Nov, 2014 [facility] [place] [facility] [address] [facility] [id number] [place] [address]- 8696 23 Nov, 2014 [facility] [place] [facility] [address] [facility] [id number] [place] [address]- 1566 16 Nov, 2014 [facility] [place] [facility] [address] [id number] [place] [address]- 3476 16 Nov, 2014 [facility] [place] [facility] [address] [facility] [id number] [place] [address]- 3879 13 Nov, 2014 [facility] [place] [facility] [address] [facility] [id number] [place] [address]- 2556 13 Nov, 2014 [facility] [place] [facility] [address] [facility] [id number] [place] [address]- 6643 13 Nov, 2014 [facility] [place] [facility] [address] [facility] [id number] [place] [address]- 9886 13 Nov, 2014 [facility] [place] [facility] [address] [facility] [id number] [place] [address]- 6347 13 Nov, 2014 [facility] [place] [facility] [address] [facility] [id number] [place] [address] 2546 13 Nov, 2014 [facility] [place] [facility] [address] [facility] [id number] [place] [address]- 2546 13 Nov, 2014 [facility] [place] [facility] [address] [facility] [id number] [place] [address]- 5116 13 Nov, 2014 [facility] [place] [facility] [address] [facility] [id number] [place] [address] 10 Nov, 2014 [facility] [place] [facility] [address] [facility] [id number] [place] [address] 10 Nov, 2014 [facility] [place] [facility] [address] [id number] [place] [address] Nov, 2014 [facility] [place] [facility] [address] [id number] [place] [address] Nov, 2014 [facility] [place] [facility] [address] [id number] [place] [address] Nov, 2014 [facility] [place] [facility] [address] [id number] [place] [address] Nov, [facility] [place] [facility] [address] [id number] [place] [address] Nov, [facility] [place] [facility] [address] [id number] [place] [address] Oct, [facility] [place] [facility] [address] [id number] [place] [address] Oct, [facility] [place] [facility] [address] [id number] [place] [address] Oct, [facility] [place] [facility] [address] [id number] [place] [address] Oct, [facility] [place] [facility] [address] [id number] [place] [address] Oct, [facility] [place] [facility] [address] [id number], [place] [address] Oct, [facility] [place] [facility] [address] [id number], [place] [address] Oct, [facility] [place] [facility] [address] [id number] [place] [address] Oct, [facility] [place] [facility] [address] [id number] [place] [address] Oct, [facility] [place] [facility] [address] [id number] [place] [address] Oct, [facility] [place] [facility] [address] [id number], [place] [address] Oct, [facility] [facility] [address] [id number] [place] [address] Oct, [facility] [place] [facility] [address] [id number] [place] [address] Oct, [facility] [place] [facility] [address] [id number] [place] [address] 2746 Oct, [facility] [place] [facility] [address] [id number] [place] [address] 9944 Oct, [facility] [place] [facility] [address] [id number] [place] [address]- 1665 Oct, [facility] [place] [facility] [address] [id number] [place] [address] 7349 Oct, [facility] [address] [id number] [place] [address] 2056 Oct, [facility] [place] [facility] [address] [id number] [place] [address]- 1404 Oct, [facility] [place] [facility] [address] [id number] [place] [address]- 6635 Oct, [facility] [place] [facility] [address] [facility] [id number] [place] [address] 9793 Oct, [facility] [place] [facility] [address] [id number] [place] [address]- 5368 Sep, [facility] [place] [facility] [address] [id number], [place] [address] 29 Sep, 2014 [facility] [place] [facility] [address] [id number] [place] [address]- 5367 Sep, [facility] [place] [facility] [address] [id number] [place] [address]- 4588 Sep, [facility] [place] [facility] [address] [id number] [place] [address]- 7769 17 Sep, 2014 [facility] [place] [facility] [address] [id number] [place] [address]- 6460 17 Sep, 2014 [facility] [place] [facility] [address] [id number] [place] [address]- 7976 15 Sep, 2014 [facility] [place] [facility] [address] [id number] [place] [address]- 1286 15 Sep, 2014 [facility] [place] [facility] [address] [id number] [place] [address]- 1536 12 Sep, 2014 [facility] [place] [facility] [address] [id number] [place] [address]- 9992 12 Sep, 2014 [facility] [place] [facility] [address] [id number] [place] [address]- 0704 Sep, [facility] [place] [facility] [address] [id number] [place] [address]- 8183 Sep, [facility] [place] [facility] [address] [id number] [place] [address]- 8836 Sep, [facility] [place] [facility] [address] [id number] [place] [address]- 4599 Sep, [facility] [place] [facility] [address] [id number] [place] [address]- 1803 Sep, [facility] [place] [facility] [address] [id number] [place] [address]- 1084 Sep, [facility] [place] [facility] [address] [id number] [place] [address]- 6666 Sep, [facility] [place] [facility] [address] [id number] [place] [address]- 8515 Sep, [facility] [place] [facility] [address] [id number] [place] [address]- 3946 Sep, [facility] [place] [facility] [address] [id number] [place] [address] 08 Sep, 2014 [facility] [place] [facility] [address] [id number] [place] [address]- 7447 Aug, [facility] [place] [facility] [address] [id number] [place] [address]- 5960 Aug, [facility] [place] [facility] [address] [id number] [place] [address]- 4276 Aug, [facility] [place] [facility] [address] [id number] [place] [address]- 1914 Aug, [facility] [place] [facility] [address] [id number] [place] [address]- 3236 Aug, [facility] [place] [facility] [address] [id number] [place] [address]- 7361 Aug, [facility] [place] [facility] [address] [id number] [place] [address]- 1405 Aug, [facility] [place] [facility] [address] [id number] [place] [address]- 6570 Aug, [facility] [place] [facility] [address] [id number] [place] [address]- 9432 Aug, [facility] [place] [facility] [address] [id number] [place] [address]- 8155 Jul, [facility] [place] [facility] [address] [id number] [place] [address]- 4783 Jul, [facility] [place] [facility] [address] [id number], [place] [address]- 6188 Jul, [facility] [place] [facility] [address] [id number], [place] [address]- 3[address] Jul, [facility] [place] [facility] [address] [id number] [place] [address]- 6327 Jul, [facility] [place] [facility] [address] [id number], [place] [address]- 1556 Jul, [facility] [place] [facility] [address] [id number], [place] [address]- 3084 Jul, [facility] [place] [facility] [address] [id number] [place] [address]- 3466 13 Jul, 2013 [facility] [place] [facility] [address] [id number] [place] [address]- 4126 10 Jul, 2013 [facility] [place] [facility] [address] [id number] [place] [address]- 9726 10 Jul, 2013 [facility] [place] [facility] [address] [id number] [place] [address]- 3526 10 Jul, 2013 [facility] [place] [facility] [address] [id number] [place] [address] 2544 10 Jul, 2013 [facility] [place] [facility] [address] [id number] [place] [address]- 9251 07 Jul, 2014 [facility] [place] [facility] [address] [id number] [place] [address]- 3194 07 Jul, 2014 [facility] [place] [facility] [address] [id number] [place] [address]- 2504 30 Sep, 2013 [facility] [place] [facility] [address] [id number] [place] [address] 2541 30 Sep, 2013 [facility] [place] [facility] [address] [id number] [place] [address] 2546 25 Sep, 2013 [facility] [place] [facility] [address] [id number] [place] [address] 2548 25 Sep, 2013 [facility] [place] [facility] [address] [id number] [place] [address] 2546 25 Sep, 2013 [facility] [place] [facility] [address] [id number] [place] [address] 2546 25 Sep, 2013 [facility] [place] [facility] [address] [id number] [place] [address] 2546 24 Sep, 2013 [facility] [place] [facility] [address] [id number] [place] [address] 2546 24 Sep, 2013 [facility] [place] [facility] [address] [id number] [place] [address] 2543 22 Sep, 2013 [facility] [place] [facility] [address] [id number] [place] [address]- 6761 22 Sep, 2013 [facility] [place] [facility] [address] [id number] [place] [address]- 3242 17 Sep, 2013 [facility] [place] [facility] [address] [id number] [place] [address]- 1417 17 Sep, 2013 [facility] [place] [facility] [address] [id number] [place] [address]- 6573 16 Sep, 2013 [facility] [place] [facility] [address] [id number] [place] [address]- 3330 16 Sep, 2013 [facility] [place] [facility] [address] [id number] [place] [address]- 4998 15 Jun, 2013 [facility] [place] [facility] [address] [id number] [place] [address]- 9241 15 Jun, 2013 [facility] [place] [facility] [address] [id number] [place] [address]- 1955 12 Jun, 2013 [facility] [place] [facility] [address] [id number] [place] [address]- 0554 12 Jun, 2013 [facility] [place] [facility] [address] [id number] [place] [address]- 5356 11 Jun, 2013 [facility] [place] [facility] [address] [id number] [place] [address]- 3411 11 Jun, 2013 [facility] [place] [facility] [address] [id number] [place] [address]- 2543 11 Jun, 2013 [facility] [place] [facility] [address] [id number] [place] [address]- 2547 11 Jun, 2013 [facility] [place] [facility] [address] [id number] [place] [address]- 2540 09 Sep, 2013 [facility] [place] [facility] [address] [id number] [place] [address]- 4767 09 Sep, 2013 [facility] [place] [facility] [address] [id number] [place] [address]- 2655 Jun, [facility] [place] [facility] [address] [id number] [place] [address]- 0965 Jun, [facility] [place] [facility] [address] [id number] [place] [address]- 8371 May, [facility] [place] [facility] [address] [id number] [place] [address]- 6672 May, [facility] [place] [facility] [address] [id number] [place] [address]- 5858 May, [facility] [place] [facility] [address] [id number] [place] [address]- 9185 May, [facility] [place] [facility] [address] [id number] [place] [address]- 8943 May, [facility] [place] [facility] [address] [id number] [place] [address]- 6128 May, [facility] [place] [facility] [address] [id number] [place] [address]- 3055 May, [facility] [place] [facility] [address] [id number] [place] [address]- 4326 May, [facility] [place] [facility] [address] [id number] [place] [address]- 7751 May, [facility] [place] [facility] [address] [id number] [place] [address]- 4945 May, [facility] [place] [facility] [address] [id number] [place] [address]- 1421 May, [facility] [place] [facility] [address] [id number] [place] [address]- 2879 May, [facility] [place] [facility] [address] [id number] [place] [address]- 0926 May, [facility] [place] [facility] [address] [id number] [place] [address]- 2401 Apr, [facility] [place] [facility] [address] [id number] [place] [address]- 3022 Apr, [facility] [place] [facility] [address] [id number] [place] [address]- 5666 Apr, [facility] [place] [facility] [address] [id number] [place] [address]- 5541 Apr, [facility] [place] [facility] [address] [id number] [place] [address]- 2206 Apr, [facility] [place] [facility] [address] [id number] [place] [address]- 4676 Mar, [facility] [place] [facility] [address] [id number] [place] [address]- 6052 Mar, [facility] [place] [facility] [address] [id number] [place] [address]- 3763 Mar, [facility] [place] [facility] [address] [id number] [place] [address]- 9131 February, [facility] [address] [id number] [place] [address]- 0871 February, [facility] [place] [facility] [address] [id number] [place] [address]- 1179 February, [facility] [address] [id number] [place] [address]- 8423 February, [facility] [place] [facility] [address] [id number] [place] [address]- 3957 February, [facility] [place] [facility] [address] [id number] [place] [address]- 0697 February, [facility] [place] [facility] [address] [id number] [place] [address]- 0101 February, [facility] [place] [facility] [address] [id number] [place] [address]- 4426 February, [facility] [place] [facility] [address] [id number] [place] [address] February, [facility] [place] [facility] [address] [id number] [place] [address]- 0745 Jan, [facility] [place] [facility] [address] [id number] [place] [address]- 6298 Jan, [facility] [place] [facility] [address] [id number] [place] [address]- 4312 Jan, [facility] [place] [facility] [address] [id number] [place] [address]- 7659 Jan, [facility] [place] [facility] [address] [id number] [place] [address]- 2435 Jan, [facility] [place] [facility] [address] [id number] [place] [address]- 6042 Dec, [facility] [place] [facility] [address] [id number] [place] [address]- 2699 Dec, [facility] [place] [facility] [address] [id number] [place] [address]- 5669 Dec, [facility] [place] [facility] [address] [id number] [place] [address]- 7713 Dec, [facility] [place] [facility] [address] [id number] [place] [address]- 5968 Dec, [facility] [place] [facility] [address] [id number] [place] [address]- 4807 Nov, [facility] [place] [facility] [address] [id number] [place] [address]- 6831 Nov, [facility] [place] [facility] [address] [id number] [place] [address]- 7404 Nov, [facility] [place] [facility] [address] [id number] [place] [address]- 4327 Nov, [facility] [place] [facility] [address] [id number] [place] [address]- 6244 Oct, [facility] [place] [facility] [address] [id number] [place] [address]- 4249 30 Oct, 2013 [facility] [place] [facility] [address] [id number] [place] [address]- 3667 Oct, [facility] [place] [facility] [address] [id number] [place] [address]- 8819 Oct, [facility] [place] [facility] [address] [id number] [place] [address]- 7145 Oct, [facility] [place] [facility] [address] [id number] [place] [address]- 8005 Oct, [facility] [place] [facility] [address] [id number] [place] [address]- 2827 Oct, [facility] [place] [facility] [address] [id number] [place] [address]- 4281 Oct, [facility] [place] [facility] [address] [id number] [place] [address]- 4578 Oct, [facility] [place] [facility] [address] [id number] [place] [address]- 5732 Oct, [facility] [place] [facility] [address] [id number] [place] [address]- 6359 Aug, [facility] [place] [facility] [address] [id number] [place] [address]- 2918 Aug, [facility] [place] [facility] [address] [id number] [place] [address]- 9636 Jul, [facility] [place] [facility] [address] [id number] [place] [address]- 2323 Jul, [facility] [place] [facility] [address] [id number] [place] [address]- 8121 Jul, [facility] [place] [facility] [address] [id number] [place] [address]- 6087 Jul, [facility] [place] [facility] [address] [id number] [place] [address]- 8597 Jul, [facility] [place] [facility] [address] [id number] [place] [address]- 1061 Jul, [facility] [place] [facility] [address] [id number] [place] [address]- 2672 Apr, [facility] [place] [facility] [address] [id number] [place] [address]- 7109 Dec, [facility] [place] [facility] [address] [id number] [place] [address]- 8063 Nov, [facility] [place] [facility] [address] [id number] [place] [address]- 8448 Nov, [facility] [place] [facility] [address] [id number] [place] [address]- 0992 Nov, [facility] [place] [facility] [address] [id number] [place] [address]- 4964 Oct, [facility] [place] [facility] [address] [id number] [place] [address]- 2996 Sep, [facility] [place] [facility] [address] [id number] [place] [address]- 9875 Sep, [facility] [place] [facility] [address] [id number] [place] [address]- 1083 Sep, [facility] [place] [facility] [address] [id number] [place] [address]- 0494 Sep, [facility] [place] [facility] [address] [id number], [place] [address]- 0298 Aug, [facility] [place] [facility] [address] [id number] [place] [address]- 6841 Aug, [facility] [place] [facility] [address] [id number] [place] [address]- 4974 Jul, [facility] [place] [facility] [address] [id number][place] 5822 Jul, [facility] [place] [facility] [address] [id number], [place] [address]- 4690 28 Jun, 2012 [facility] [place] [facility] [address] [id number] [place] [address]- 8956 26 Jun, 2012 [facility] [place] [facility] [address] [id number] [place] [address]- 7606 24 Jun, 2012 [facility] [place] [facility] [address] [id number] [place] [address]- 9156 24 Jun, 2012 [facility] [place] [facility] [address] [id number] [place] [address]- 9623 12 Jun, 2012 [facility] [place] [facility] [address] [id number] [place] [address]- 8103 31 Apr, 2012 [facility] [place] [facility] [address] [id number] [place] [address]- 3393 30 Apr, 2012 [facility] [place] [facility] [address] [id number] [place] [address]- 1731 Apr, [facility] [place] [facility] [address] [id number] [place] [address]- 8593 Mar, [facility] [place] [facility] [address] [id number] [place] [address]- 6772 Mar, [facility] [place] [facility] [address] [id number] [place] [address]- 9904 Mar, [facility] [place] [facility] [address] [id number] [place] [address]- 3219 February, [facility] [place] [facility] [address] [id number] [place] [address]- 4632 Jan, [facility] [place] [facility] [address] [id number] [place] [address]- 0976 Dec, [facility] [place] [facility] [address] [id number] [place] [address]- 6579 Dec, [facility] [place] [facility] [address] [id number] [place] [address]- 7426 Dec, [facility] [place] [facility] [address] [id number] [place] [address]- 6565 19 Dec, 2011 [facility] [place] [facility] [address] [id number] [place] [address]- 5819 Dec, [facility] [place] [facility] [address] [id number] [place] [address]- 1956 14 Nov, 2011 [facility] [place] [facility] [address] [id number] [place] [address]- 4746 13 Nov, 2011 [facility] [place] [facility] [address] [id number] [place] [address]- 2290 Oct, [facility] [place] [facility] [address] [id number] [place] [address]- 1414 Oct, [facility] [place] [facility] [address] [id number] [place] [address]- 2601 Oct, [facility] [place] [facility] [address] [id number] [place] [address]- 9923 Sep, [facility] [place] [facility] [address] [id number] [place] [address]- 8421 Aug, [facility] [place] [facility] [address] [id number] [place] [address]- 9551 Aug, [facility] [place] [facility] [address] [id number] [place] [address]- 7663 28 Jul, 2011 [facility] [place] [facility] [address] [id number] [place] [address]- 6034 24 Jul, 2011 [facility] [place] [facility] [address] [id number] [place] [address]- 6899 19 Jul, 2011 [facility] [place] [facility] [address] [id number] [place] [address]- 5488 13 Jan, 2011 [facility] [place] [facility] [address] [id number] [place] [address]- 2545 29 Sep, 2010 [facility] [place] [facility] [address] [id number] [place] [address]- 3636 Sep, [facility] [place] [facility] [address] [id number] [place] [address]- 7684 Sep, [facility] [place] [facility] [address] [id number] [place] [address]- 2606 Sep, [facility] [place] [facility] [address] [facility] [id number] [place] [address]- 6816 Sep, [facility] [place] [facility] [address] [id number] [place] [address]- 8[address] Aug, [facility] [place] [facility] [address] [id number] [place] [address] 16 Aug, 2010 [facility] [place] [facility] [address] [id number] [place] [address] 08 Aug, 2010 [facility] [place] [facility] [address] [id number] [place] [address] Jul, [facility] [place] [facility] [address] [id number], [place] [address] Jul, [facility] [place] [facility] [address] [id number], [place] [address] Jul, [facility] [place] [facility] [address] [id number], [place] [address] May, [facility] [place] [facility] [address] [id number], [place] [address] 13 Apr, 2010 [facility] [place] [facility] [address] [id number], [place] [address] 18 Dec, 2009 [facility] [place] [facility] [address] [id number], [place] [address] 17 Sep, 2009 [facility] [place] [facility] [address] [id number], [place] [address] 17 Sep, 2009 [facility] [place] [facility] [address] [facility] [id number], [place] [address] Aug, [facility] [place] [facility] [address] [facility] [id number] [place] [address] Aug, [facility] [address] [facility] [id number] [place] [address] Jul, [facility] [address] [facility] [id number] [place] [address] Mar, IMMUNIZATIONS No Known Immunizations SOCIAL HISTORY Never Assessed REASON FOR VISIT Returned call PLAN OF CARE VITAL SIGNS MEDICATIONS [...]
--- OUTSIDE RECORDS SUMMARY | 2018-10-08 20:11 | XMS REPORT ---
Author Author JENNY WOLF [facility] Address [address] [place] [address] Care Team Providers Care Senior Applications Developer Name Role Phone JENNY WOLF Unavailable PROBLEMS Type Condition ICD9-CM Code [id number] Code Onset Dates Condition Status SNOMED Code Problem Chronic pain G89.29 Active 29067003 Problem HSV (herpes simplex virus) infection B00.9 Active 23430183 Problem Gastroesophageal reflux disease without esophagitis K21.9 Active 451959214 Problem Type 2 diabetes mellitus with diabetic neuropathy, unspecified E11.40 Active 70191471 Problem willower 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 Z79.4 Active 135438854 Problem Edema of both feet R60.0 Active 136202433 Problem Tobacco abuse Z72.0 Active 82231786 Problem Chronic migraine G43.709 Active 06289119 Problem Mixed hyperlipidemia E78.2 Active 085596609 Problem Spinal stenosis, lumbar region M48.06 Active 35127774 Problem Anxiety F41.9 Active 20122795 Problem Radiculopathy of lumbar region M54.16 Active 728803110 Problem Bulging lumbar disc M51.26 Active 030877691 Problem Asthma J45.909 Active 013112292 Problem Essential hypertension I10 Active 82014049 ALLERGIES Substance Reaction Event Type Date Status Prozac severe nightmares Drug Allergy Mar, Active Levaquin Unknown Drug Allergy Mar, Active Diclofenac Sodium rash Drug Allergy Mar, Active ChloraPrep One Step Unknown Drug Allergy Mar, Active Quinolones Unknown Non Drug Allergy Mar, Active ENCOUNTERS Encounter Location Date Diagnosis [facility] [address] [facility] [id number] [address] Dec, [facility] [address] [facility] [id number] [address] Dec, Gastroesophageal reflux disease without esophagitis K21.9 and Anxiety F41.9 [place] [address] [id number] [place] [address] 95276- 4228 14 Dec, 2017 Essential hypertension I10 ; Mixed hyperlipidemia E78.2 ; Type 2 diabetes mellitus with diabetic neuropathy, unspecified E11.40 ; willower 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 Z79.4 ; Chronic pain G89.29 ; HSV (herpes simplex virus) infection B00.9 ; Anxiety F41.9 and Gastroesophageal reflux disease without esophagitis K21.9 [place] [address] 32187- 9413 07 Dec, 2017 Chronic pain G89.29 and Chronic migraine G43.709 [place] [address] 24298- 0239 Nov, [place] [address] 53160- 0688 08 Nov, 2017 Essential hypertension I10 and Chronic pain G89.29 [place] [address] 68237- 1671 Nov, Chronic pain G89.29 ; Essential hypertension I10 and Type 2 diabetes mellitus without complication E11.9 [place] [address] 47948- 2818 Oct, Chronic pain G89.29 [place] [address] [place] [id number] [place] [address] 47298- 3567 Oct, [place] [address] 11877- 5015 Sep, Type 2 diabetes mellitus without complication E11.9 ; Essential hypertension I10 ; willower (current) use of insulin Z79.4 ; Chronic migraine G43.709 ; Chronic pain G89.29 and Acute non-recurrent maxillary sinusitis J01.00 [place] [address] [place] [id number] [place] [address] 05436- 7333 Sep, Encounter for Depo-Provera contraception Z30.42 [place] [address] [place] [address]- 0372 Sep, Chronic pain G89.29 and Radiculopathy of lumbar region M54.16 [facility] [address] [address] 6520 Sep, [facility] [id number] [place] [address] 88371- 4197 Sep, [facility] [id number] [place] [address] 28556- 0411 Aug, Type 2 diabetes mellitus without complication E11.9 [facility] [id number] [place] [address] 07361- 7309 Aug, [facility] [id number] [place] [address] 18965- 0743 Aug, Radiculopathy of lumbar region M54.16 and Chronic pain G89.29 [facility] [id number] [place] [address] 13798- 4044 Aug, Type 2 diabetes mellitus without complication E11.9 [facility] [id number] [place] [address] 04104- 5093 Aug, Type 2 diabetes mellitus without complication E11.9 [facility] [address] [address] 1196 Jul, Type 2 diabetes mellitus without complication E11.9 [facility] [address], [place] [address] 2663 Jul, [facility] [id number] [place] [address] 17701- 8315 Jul, Chronic pain G89.29 [facility] [id number] [address]- 9119 Jul, [facility] [address] [id number] [address]- 7152 Jul, [facility] [id number] [place] [address] 15335- 2256 Jul, Type 2 diabetes mellitus without complication E11.9 [place] [address] [place] [address] 94519- 6018 Jul, [facility] [id number] [place] [address] 83224- 3800 Jul, Type 2 diabetes mellitus without complication E11.9 [place] [address] [id number] [place] [address] 39163- 8374 Jul, [place] [address] [id number] [place] [address] 66550- 4413 Jul, [place] [address] [address] [id number] [place] [address] 13166- 9111 Jul, [place] [address] [address] [id number] [place] [address] 04287- 8293 Jun, Type 2 diabetes mellitus without complication E11.9 [place] [address] [id number] [place] [address] 83159- 7145 Jun, Chronic migraine G43.709 ; Type 2 diabetes mellitus without complication E11.9 ; Calculus of right kidney N20.0 ; Yeast dermatitis B37.2 and HSV (herpes simplex virus) infection B00.9 [place] [address] [id number] [place] [address] 40527- 1404 Jun, Type 2 diabetes mellitus without complication E11.9 [place] [address] [id number] [place] [address] 74903- 6013 Jun, [place] [address] [id number] [place] [address] 47979- 1697 Jun, Radiculopathy of lumbar region M54.16 and Chronic pain G89.29 [place] [address] [id number] [place] [address] 83309- 4426 Jun, Encounter for Depo-Provera contraception Z30.42 [place] [address] [id number] [place] [address] 11652- 2236 Jun, Type 2 diabetes mellitus without complication E11.9 [facility] [id number] [place] [address] 95597- 7260 Jun, [facility] [id number] [place] [address] 14723 -9620 May, Acute nasopharyngitis (common cold) J00 [facility] [address] 01001- 1241 May, Chronic pain G89.29 [place] [address] 01718- 8241 May, Headache following lumbar puncture G97.1 [place] [address] 20932- 7063 May, Radiculopathy of lumbar region M54.16 [place] [address] 52382- 9642 Apr, [place] [address] [address] [id number] [place] [address] 25305- 1917 Apr, Type 2 diabetes mellitus without complication E11.9 ; Chronic pain G89.29 ; Essential hypertension I10 ; Radiculopathy of lumbar region M54.16 ; Spinal stenosis, lumbar region M48.06 ; Gastroesophageal reflux disease without esophagitis K21.9 ; HSV (herpes simplex virus) infection B00.9 ; Mixed hyperlipidemia E78.2 ; Anxiety F41.9 and Asthma J45.909 [facility] [id number] [place] [address] 34184- 8470 Apr, Encounter for Depo-Provera contraception Z30.42 [place] [id number] [place] [address] 07600- 9665 Apr, Chronic pain G89.29 and Anxiety F41.9 [place] [id number] [place] [address] 71054- 2615 Mar, [place] [address] [place] [address]- 6486 Mar, [facility] [id number] [place] [address] 93204- 9417 Mar, Mixed hyperlipidemia E78.2 [facility] [id number] [place] [address] 59138- 8941 Mar, Type 2 diabetes mellitus without complication E11.9 ; Chronic pain G89.29 ; Essential hypertension I10 ; Radiculopathy of lumbar region M54.16 ; Spinal stenosis, lumbar region M48.06 ; Gastroesophageal reflux disease without esophagitis K21.9 ; HSV (herpes simplex virus) infection B00.9 ; Mixed hyperlipidemia E78.2 and Anxiety F41.9 [facility] [id number] [place] [address] 06183- 1801 Mar, [facility] [id number] [place] [address] 03770- 7520 Mar, [facility] [id number] [place] [address] 23017- 9707 Mar, [facility] [id number] [place] [address] 84290- 2930 February, Chronic pain G89.29 [facility] [id number] [place] [address] 86133- 7058 February, [facility] [id number] [place] [address] 22775- 2137 Jan, Chronic pain G89.29 [facility] [id number] [place] [address] 27256- 1290 Jan, Type 2 diabetes mellitus without complication E11.9 [facility] [id number] [place] [address] 47964- 6253 Jan, [facility] [id number] [place] [address] 84472- 6825 Jan, [facility] [id number] [place] [address] 41556- 4286 Jan, [place] [address] [id number] [place] [address] 04410- 7322 Jan, Type 2 diabetes mellitus without complication [...] J01.00 and Encounter for Depo-Provera contraception Z30.42 [place] [address] [place] [id number] [place] [address] 75954- 0030 Dec, Chronic pain G89.29 [place] [id number] [place] [address] 26318- 4129 Dec, Abnormal ankle brachial index (BERNARDINO) R68.89 [place] [address] [id number] [place] [address] 78160- 6746 Dec, [place] [id number] [place] [address] 24521- 2121 Dec, Routine gynecological examination Z01.419 ; Chronic [...] virus) infection B00.9 and Allergic rhinitis 477.9 [place] [id number] [place] [address] 98297- 9986 Nov, Chronic pain G89.29 [place] [id number] [place] [address] 60514- 7938 02 Nov, 2016 Chronic pain G89.29 ; [...] mucoid otitis media of both ears H65.113 [place] [address] 77972- 5838 Oct, [place] [address] 49257- 8581 Oct, Chronic pain G89.[address] 56553- 8768 Oct, Chronic pain G89.29 [place] [address] 34818- 3871 Sep, Chronic pain G89.29 ; Type 2 diabetes mellitus without complication E11.9 ; Essential hypertension I10 ; Radiculopathy of lumbar region M54.16 ; Spinal stenosis, lumbar region M48.06 ; Gastroesophageal reflux disease without esophagitis K21.9 ; Encounter for surveillance of injectable contraceptive Z30.42 ; Bilateral cold feet R20.9 ; Pain of left foot M79.672 and Pain in right foot M79.671 [place] [address] [place] [id number] [place] [address] 99659- 7420 Sep, [place] [address] 38220- 0685 Aug, [place] [address] [place] [id number] [place] [address] 00435- 0217 Aug, [place] [address] 57475- 2723 Aug, Chronic pain G89.29 ; Type 2 diabetes mellitus without complication E11.9 ; Essential hypertension I10 ; Rash and nonspecific skin eruption R21 and Upper respiratory infection, acute J06.9 [place] [address] [place] [id number] [place] [address] 06163- 5405 08 Aug, 2016 [facility] [address] 76773- 1746 Aug, [facility] [id number] [place] [address] 35177- 0435 Jul, [facility] [address] 32208- 6097 Jul, Dysuria R30.0 ; Encounter for Depo-Provera contraception Z30.42 ; Herpes simplex B00.9 ; Nausea & vomiting R11.2 and Asthma J45.909 [facility] [address] 09078- 6424 21 Jun, 2016 Dysuria R30.0 [facility] [address] [place] [id number] [place] [address] 74013- 4229 19 Jun, 2016 Dysuria R30.0 [facility] [id number] [place] [address] 49128- 6628 15 Jun, 2016 [facility] [address] 46247- 3073 13 Jun, 2016 [facility] [address] [place] [id number] [place] [address] 64898- 4830 May, [facility] [address] 48877- 8148 May, [facility] [address] [place] [id number] [place] [address] 76415- 3269 May, Chronic pain G89.29 ; Essential hypertension I10 ; Type 2 diabetes mellitus without complication E11.9 ; Edema of both feet R60.0 and Rash and nonspecific skin eruption R21 [facility] [address] [id number] [place] [address] 07611- 9879 Apr, [facility] [address] 48256- 1863 Mar, Carpal tunnel syndrome, left upper limb G56.02 and Carpal tunnel syndrome, right upper limb G56.01 [place] [address] [place] [id number] [place] [address] 01685- 8480 Mar, [place] [address] [place] [id number] [place] [address] 40286- 0327 17 Mar, 2016 Encounter for Depo-Provera contraception Z30.42 [place] [address] 09726- 4876 February, [place] [address] 07724- 0018 February, [place] [address] [place] [id number] [place] [address] 26444- 9567 February, Chronic pain G89.29 ; Essential hypertension I10 ; Type 2 diabetes mellitus without complication E11.9 ; HSV (herpes simplex virus) infection B00.9 ; Anxiety F41.9 ; Hypersomnia G47.10 ; Tobacco abuse Z72.0 ; Hand pain, left M79.642 ; Hand pain, right M79.641 ; Left foot pain M79.672 and Heart palpitations R00.2 [place] [address] [place] [id number] [place] [address] 38397- 2287 Jan, [place] [address] [place] [id number] [place] [address] 51209- 1862 Jan, [place] [address] [place] [id number] [place] [address] 50300- 7166 Jan, [place] [address] [place] [id number] [place] [address] 81029- 2906 Jan, [place] [address] [place] [id number] [place] [address] 81280- 3278 14 Jan, 2016 Upper respiratory infection J06.9 and Type 2 diabetes mellitus without complication E11.9 [place] [address] [place] [id number] [place] [address] 27707- 1876 Dec, [place] [address] [place] [id number] [place] [address] 87479- 2208 Dec, Chronic pain G89.29 ; Essential hypertension I10 ; Type 2 diabetes mellitus without complication E11.9 ; HSV (herpes simplex virus) infection B00.9 ; Anxiety F41.9 ; Upper respiratory infection J06.9 ; Hypersomnia G47.10 and Tobacco abuse Z72.0 [place] [address] 66477- 9525 17 Dec, 2015 Encounter for Depo-Provera contraception Z30.42 [place] [address] 19795- 6666 Dec, [place] [address] 37508- 1860 Dec, Chronic pain G89.29 ; Sinusitis J32.9 ; Snoring R06.83 and Daytime hypersomnia G47.19 [place] [address] 63499- 2809 Nov, HSV (herpes simplex virus) infection B00.9 ; Encounter for Papanicolaou smear for cervical cancer screening Z12.4 ; Screening for STD ( sexually transmitted disease) Z11.3 and Bartholin's gland cyst N75.0 [place] [address] [place] [id number] [place] [address] 23313- 9949 Nov, [place] [address] 66486- 4350 Nov, [place] [address] 23906- 0881 Nov, Essential hypertension I10 ; Type 2 diabetes mellitus without complication E11.9 ; HSV (herpes simplex virus) infection B00.9 ; Spinal stenosis, lumbar region M48.06 and Vaginal yeast infection B37.3 [place] [address] [place] [id number] [place] [address] 43821- 4873 Nov, [place] [address] [place] [address] [place] [address]- 6175 Nov, [place] [address] [place] [id number] [place] [address] 99200- 5197 Oct, [place] [address] [place] [id number] [place] [address] 22199- 7187 Oct, HSV (herpes simplex virus) infection B00.9 ; Yeast infection B37.9 ; Change in bowel habit R19.4 ; Nausea & vomiting R11.2 and Gastroesophageal reflux disease without esophagitis K21.9 [place] [address] [place] [id number] [place] [address] 03031- 4208 Oct, [place] [address] [place] [id number] [place] [address] 39900- 6405 Oct, Type 2 diabetes mellitus without complication E11.9 ; Essential hypertension I10 and Acute maxillary sinusitis, recurrence not specified J01.00 [place] [address] [place] [id number] [place] [address] 76992- 6637 Oct, [place] [address] [place] [id number] [place] [address] 55190- 7255 Oct, [place] [address] [place] [id number] [place] [address] 70056- 5358 Oct, Exposure to head lice Z20.7 ; Blood glucose abnormal R73.09 ; Boil of buttock L02.32 and Type 2 diabetes mellitus without complication E11.9 [place] [address] [place] [id number] [place] [address] 69627- 3576 Oct, [place] [address] [place] [id number] [place] [address] 95473- 9108 Sep, [place] [address] 29386- 7576 Sep, [place] [address] [place] [id number] [place] [address] 63219- 0205 Aug, Encounter for Depo-Provera contraception Z30.42 [place] [address] [place] [id number] [place] [address] 37371- 5015 Aug, Anxiety F41.9 ; Spinal stenosis, lumbar region M48.06 ; Radiculopathy of lumbar region M54.16 ; Asthma J45.909 ; GERD (gastroesophageal reflux disease) K21.9 ; Essential hypertension I10 and Long-term use of high- risk medication Z79.[address] 39573- 0581 Jul, [place] [address] 02854- 7240 Jun, Hemorrhoid 455.[address] 12367- 8475 Jun, [place] [id number] [place] [address] 28632- 7886 Jun, Anxiety 300.00 ; Asthma 493.90 ; Hyperhidrosis 705.21 ; Chest discomfort 786.59 and Upper respiratory infection 465.9 [place] [id number] [place] [address] 70043- 0028 May, Encounter for Depo-Provera contraception V25.49 [place] [address] [place] [id number] [place] [address] 02245- 7038 May, [place] [id number] [place] [address] 86769- 8173 May, [place] [address] [place] [id number] [place] [address] 03091- 8820 May, Spinal stenosis of lumbar region with radiculopathy 724.02 ; Bulging of intervertebral disc between L4 and L5 722.10 ; GERD ( gastroesophageal reflux disease) 530.81 ; Chronic pain 338.29 ; Declining mobility 799.89 and Epigastric pain 789.06 [place] [id number] [place] [address] 13345- 5080 Apr, [place] [address] [address]- 0026 Apr, Nausea 787.02 and Heart burn 787.1 [facility] [id number] [place] [address] 418191- 0982 Mar, Lumbago 724.2 ; Vitamin D deficiency 268.9 ; Anxiety 300.00 ; Allergic rhinitis 477.9 and Contraceptive surveillance V25.40 [facility] [id number] [place] [address] 755359- 3814 February, 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 ; Chronic pain 338.29 and Vaginal discharge 623.5 [facility] [id number] [place] [address] 03333- 6465 February, [facility] [id number] [place] [address] 837947- 4169 February, [facility] [id number] [place] [address] 10492- 7822 Jan, [facility] [id number] [place] [address] 60302- 5348 Jan, [facility] [id number] [place] [address] [id number]- 3734 Dec, [facility] [id number] [place] [address] 88788243- 7154 Dec, [facility] [id number] [place] [address] [id number]- 6504 Dec, [facility] [id number] [place] [address] 401034- 5625 Dec, [facility] [id number] [place] [address] 33435- 6331 Dec, [facility] [address] [address]- 8876 Dec, [facility] [id number] [place] [address] 61455- 0724 Dec, [facility] [place] [facility] [address] [id number] [place] [address]- 3715 13 Dec, 2014 [facility] [place] [facility] [address] [id number] [place] [address]- 4385 Dec, [facility] [place] [facility] [address] [facility] [id number] [place] [address]- 0421 Dec, [facility] [place] [facility] [address] [id number] [place] [address]- 2207 Dec, [facility] [place] [facility] [address] [id number] [place] [address]- 5568 Dec, [facility] [place] [facility] [address] [id number] [place] [address]- 6894 Nov, 2014 [facility] [place] [facility] [address] [id number] [place] [address]- 9501 Nov, 2014 [facility] [place] [facility] [address] [id number] [place] [address]- 8779 24 Nov, 2014 [facility] [place] [facility] [address] [id number] [place] [address]- 0999 24 Nov, 2014 [facility] [place] [facility] [address] [facility] [id number] [place] [address]- 4658 23 Nov, 2014 [facility] [place] [facility] [address] [id number] [place] [address] 23 Nov, 2014 [facility] [place] [facility] [address] [facility] [id number] [place] [address] 16 Nov, 2014 [facility] [place] [facility] [address] [id number] [place] [address] 16 Nov, 2014 [facility] [place] [facility] [address] [facility] [id number] [place] [address] 13 Nov, 2014 [facility] [place] [facility] [address] [facility] [id number] [place] [address] 13 Nov, 2014 [facility] [place] [facility] [address] [id number] [place] [address] Nov, 2014 [facility] [place] [facility] [address] [id number] [place] [address] Nov, 2014 [facility] [place] [facility] [address] [id number] [place] [address] Nov, 2014 [facility] [place] [facility] [address] [id number] [place] [address]- [address] Nov, 2014 [facility] [place] [facility] [address] [id number] [place] [address]- [address] Nov, 2014 [facility] [place] [facility] [address] [id number] [place] [address] Nov, 2014 [facility] [place] [facility] [address] [facility] [id number] [place] [address] Nov, 2014 [facility] [place] [facility] [address] [id number] [place] [address] Nov, 2014 [facility] [place] [facility] [address] [id number] [place] [address] Nov, 2014 [facility] [place] [facility] [address] [facility] [id number] [place] [address] Nov, 2014 [facility] [place] [facility] [address] [facility] [id number] [place] [address] Nov, 2014 [facility] [place] [facility] [address] [id number] [place] [address] Nov, 2014 [facility] [place] [facility] [address] [id number] [place] [address] Nov, 2014 [facility] [place] [facility] [address] [id number] [place] [address] Oct, [facility] [place] [facility] [address] [facility] [id number] [place] [address] Oct, [facility] [place] [facility] [address] [id number] [place] [address] 30 Oct, 2014 [facility] [address] [id number] [place] [address]- 7019 Oct, [facility] [place] [facility] [address] [id number] [place] [address] 1069 Oct, [facility] [address] [id number] [place] [address] 0076 Oct, [facility] [place] [facility] [address] [id number] [place] [address]- 4981 Oct, [facility] [address] [id number] [place] [address] 6959 Oct, [facility] [address] [id number] [place] [address]- 2629 Oct, [facility] [address] [id number] [place] [address]- 6853 Oct, [facility] [address] [id number] [place] [address]- 0639 Oct, [facility] [place] [facility] [address] [id number] [place] [address]- 0023 Oct, [facility] [address] [id number] [place] [address]- 3791 Oct, [facility] [place] [facility] [address] [id number] [place] [address]- 3899 Oct, [facility] [place] [facility] [address] [id number] [place] [address] 2053 Oct, [facility] [place] [facility] [address] [id number] [place] [address]- 9983 Oct, [facility] [place] [facility] [address] [id number] [place] [address]- 7018 Oct, [facility] [place] [facility] [address] [id number] [place] [address]- 6436 Oct, [facility] [place] [facility] [address] [id number] [place] [address]- 4490 Oct, [facility] [place] [facility] [address] [id number] [place] [address]- 6840 Oct, [facility] [place] [facility] [address] [id number] [place] [address]- 9983 Oct, [facility] [place] [facility] [address] [id number] [place] [address]- 2175 Sep, [facility] [place] [facility] [address] [id number] [place] [address]- 9323 29 Sep, 2014 [facility] [place] [facility] [address] [id number] [place] [address]- 6949 Sep, [facility] [place] [facility] [address] [id number] [place] [address]- 2686 Sep, [facility] [place] [facility] [address] [id number] [place] [address]- 7701 17 Sep, 2014 [facility] [place] [facility] [address] [id number] [place] [address]- 3061 17 Sep, 2014 [facility] [place] [facility] [address] [id number] [place] [address]- 4972 15 Sep, 2014 [facility] [place] [facility] [address] [id number] [place] [address]- 8996 15 Sep, 2014 [facility] [place] [facility] [address] [id number] [place] [address]- 0786 Sep, [facility] [place] [facility] [address] [id number] [place] [address]- 2826 Sep, [facility] [place] [facility] [address] [id number] [place] [address]- 4907 Sep, [facility] [place] [facility] [address] [id number] [place] [address]- 9628 Sep, [facility] [place] [facility] [address] [id number] [place] [address]- 3241 Sep, [facility] [place] [facility] [address] [id number] [place] [address]- 9443 Sep, [facility] [place] [facility] [address] [id number] [place] [address]- 7115 Sep, [facility] [place] [facility] [address] [facility] [id number] [place] [address]- 4467 Sep, [facility] [place] [facility] [address] [id number] [place] [address]- 4628 Sep, [facility] [place] [facility] [address] [id number] [place] [address]- 3221 Sep, [facility] [place] [facility] [address] [id number] [place] [address]- 3925 Sep, [facility] [place] [facility] [address] [facility] [id number] [place] [address]- 1019 Sep, [facility] [place] [facility] [address] [id number] [place] [address]- 0971 Aug, [facility] [place] [facility] [address] [id number] [place] [address]- 8324 Aug, [facility] [place] [facility] [address] [facility] [id number] [place] [address]- 3000 Aug, [facility] [place] [facility] [address] [id number] [place] [address]- 1946 Aug, [facility] [place] [facility] [address] [id number] [place] [address]- 3106 Aug, [facility] [place] [facility] [address] [id number] [place] [address]- 4806 Aug, [facility] [place] [facility] [address] [id number] [place] [address]- 0011 Aug, [facility] [place] [facility] [address] [facility] [id number] [place] [address]- 3038 Aug, [facility] [place] [facility] [address] [id number] [place] [address]- 9135 Aug, [facility] [place] [facility] [address] [id number] [place] [address]- 0788 Jul, [facility] [place] [facility] [address] [id number] [place] [address]81 Jul, [facility] [place] [facility] [address] [id number] [place] [address]- 9460 Jul, [facility] [place] [facility] [address] [id number] [place] [address]- 6198 Jul, 2013 [facility] [place] [facility] [address] [id number] [place] [address]- 5958 Jul, [facility] [place] [facility] [address] [id number] [place] [address]- 2728 Jul, [facility] [place] [facility] [address] [id number] [place] [address]- 4649 Jul, 2013 [facility] [place] [facility] [address] [id number] [place] [address]- 2380 Jul, [facility] [place] [facility] [address] [id number] [place] [address]- 1839 Jul, [facility] [place] [facility] [address] [id number] [place] [address]- 0624 10 Jul, 2014 [facility] [place] [facility] [address] [id number] [place] [address]- 1483 10 Jul, 2014 [facility] [place] [facility] [address] [id number] [place] [address]- 9699 10 Jul, 2014 [facility] [place] [facility] [address] [id number] [place] [address]- 8138 07 Jul, 2014 [facility] [place] [facility] [address] [id number] [place] [address]- 0567 07 Jul, 2014 [facility] [place] [facility] [address] [id number] [place] [address]- 2814 30 Sep, 2013 [facility] [place] [facility] [address] [id number] [place] [address] 2544 30 Sep, 2013 [facility] [place] [facility] [address] [id number] [place] [address] 2547 25 Sep, 2013 [facility] [place] [facility] [address] [id number] [place] [address]- 2512 25 Sep, 2013 [facility] [place] [facility] [address] [id number] [place] [address]- 5898 25 Sep, 2013 [facility] [place] [facility] [address] [id number] [place] [address]- 0951 25 Sep, 2013 [facility] [place] [facility] [address] [id number] [place] [address]- 2698 24 Sep, 2013 [facility] [place] [facility] [address] [id number] [place] [address]- 9567 24 Sep, 2013 [facility] [place] [facility] [address] [id number] [place] [address]- 2942 22 Sep, 2013 [facility] [place] [facility] [address] [id number] [place] [address]- 4646 22 Sep, 2013 [facility] [place] [facility] [address] [id number] [place] [address]- 9388 17 Sep, 2013 [facility] [place] [facility] [address] [id number], [place] [address]- 4755 17 Sep, 2013 [facility] [place] [facility] [address] [id number], [place] [address]- 2544 16 Sep, 2013 [facility] [place] [facility] [address] [id number] [place] [address]- 2546 16 Sep, 2013 [facility] [place] [facility] [address] [id number] [place] [address]- 5958 15 Sep, 2013 [facility] [place] [facility] [address] [id number] [place] [address]- 0703 15 Sep, 2013 [facility] [place] [facility] [address] [id number] [place] [address]- 9953 12 Jun, 2013 [facility] [place] [facility] [address] [id number] [place] [address]- 9535 12 Jun, 2013 [facility] [place] [facility] [address] [id number] [place] [address]- 4186 Jun, 2013 [facility] [place] [facility] [address] [id number] [place] [address]- 2748 Jun, 2013 [facility] [place] [facility] [address] [id number] [place] [address]- 3459 Jun, 2013 [facility] [place] [facility] [address] [id number] [place] [address]- 6791 Jun, 2013 [facility] [place] [facility] [address] [id number] [place] [address]- 5456 Jun, 2013 [facility] [place] [facility] [address] [id number] [place] [address]- 6907 Jun, 2013 [facility] [place] [facility] [address] [id number] [place] [address]- 9713 Jun, 2013 [facility] [place] [facility] [address] [id number] [place] [address]- 8474 Jun, 2013 [facility] [place] [facility] [address] [id number] [place] [address]- 5457 May, [facility] [place] [facility] [address] [id number] [place] [address]- 7361 May, [facility] [place] [facility] [address] [id number] [place] [address]- 2545 May, [facility] [place] [facility] [address] [id number] [place] [address]- 3320 May, [facility] [place] [facility] [address] [id number] [place] [address]- 6957 May, [facility] [place] [facility] [address] [id number] [place] [address]- 3673 May, [facility] [place] [facility] [address] [id number] [place] [address]- 5098 May, [facility] [place] [facility] [address] [id number] [place] [address]- 0727 May, [facility] [place] [facility] [address] [id number] [place] [address]- 9459 May, [facility] [place] [facility] [address] [id number] [place] [address]- 6305 May, [facility] [place] [facility] [address] [id number] [place] [address]- 4806 May, [facility] [place] [facility] [address] [id number] [place] [address]- 9707 May, [facility] [place] [facility] [address] [id number] [place] [address]- 0574 May, [facility] [place] [facility] [address] [id number] [place] [address]- 0781 Apr, [facility] [place] [facility] [address] [id number] [place] [address]- 6415 Apr, [facility] [place] [facility] [address] [id number] [place] [address]- 8889 Apr, [facility] [place] [facility] [address] [id number] [place] [address]- 8715 Apr, [facility] [place] [facility] [address] [id number] [place] [address]- 2100 Apr, [facility] [place] [facility] [address] [id number] [place] [address]- 0102 Mar, [facility] [place] [facility] [address] [id number] [place] [address]- 5070 Mar, [facility] [place] [facility] [address] [id number] [place] [address]- 5399 Mar, [facility] [place] [facility] [address] [id number] [place] [address]- 1121 February, [facility] [place] [facility] [address] [id number] [place] [address]- 3909 February, [facility] [place] [facility] [address] [id number] [place] [address]49 February, [facility] [place] [facility] [address] [id number] [place] [address]- 6795 February, [facility] [place] [facility] [address] [id number] [place] [address]- 8597 February, [facility] [place] [facility] [address] [id number] [place] [address]- 4103 February, [facility] [place] [facility] [address] [id number] [place] [address]- 6835 February, [facility] [place] [facility] [address] [id number] [place] [address]- 9891 February, [facility] [place] [facility] [address] [id number] [place] [address]- 0402 February, [facility] [place] [facility] [address] [id number] [place] [address]- 1417 Jan, [facility] [place] [facility] [address] [id number] [place] [address]- 1542 Jan, [facility] [place] [facility] [address] [id number] [place] [address]- 2759 Jan, [facility] [place] [facility] [address] [id number] [place] [address]- 7229 Jan, [facility] [place] [facility] [address] [id number] [place] [address]- 5188 Jan, [facility] [place] [facility] [address] [id number] [place] [address]- 8680 Dec, [facility] [place] [facility] [address] [id number] [place] [address]- 8142 Dec, [facility] [place] [facility] [address] [id number] [place] [address]- 0780 Dec, [facility] [place] [facility] [address] [id number] [place] [address]- 1246 Dec, [facility] [place] [facility] [address] [id number] [place] [address]- 7816 Dec, [facility] [place] [facility] [address] [id number] [place] [address]- 5386 Nov, [facility] [place] [facility] [address] [id number] [place] [address]- 6501 Nov, [facility] [place] [facility] [address] [id number] [place] [address]- 3986 Nov, [facility] [place] [facility] [address] [id number] [place] [address]- 2945 Nov, [facility] [place] [facility] [address] [id number] [place] [address]- 5806 Oct, [facility] [place] [facility] [address] [id number] [place] [address]- 9726 Oct, [facility] [place] [facility] [address] [id number] [place] [address]- 5311 Oct, [facility] [place] [facility] [address] [id number] [place] [address]- 8571 Oct, [facility] [place] [facility] [address] [id number] [place] [address]- 6974 Oct, [facility] [place] [facility] [address] [id number] [place] [address]- 4705 Oct, [facility] [place] [facility] [address] [id number] [place] [address]- 7930 Oct, [facility] [place] [facility] [address] [id number] [place] [address]- 0483 Oct, [facility] [place] [facility] [address] [id number] [place] [address]- 5237 Oct, [facility] [place] [facility] [address] [id number] [place] [address]- 8890 Oct, [facility] [place] [facility] [address] [id number] [place] [address]- 2743 Aug, [facility] [place] [facility] [address] [id number] [place] [address]- 4236 Aug, [facility] [place] [facility] [address] [id number] [place] [address]- 5727 Jul, [facility] [place] [facility] [address] [id number] [place] [address]- 0349 Jul, [facility] [place] [facility] [address] [id number] [place] [address]- 1200 Jul, [facility] [place] [facility] [address] [id number] [place] [address]- 7817 Jul, [facility] [place] [facility] [address] [id number], [place] [address]- 8766 Jul, [facility] [place] [facility] [address] [id number] [place] [address]- 7947 Jul, [facility] [place] [facility] [address] [id number], [place] [address]- 8960 Apr, [facility] [place] [facility] [address] [id number], [place] [address]- 7350 Dec, [facility] [place] [facility] [address] [id number], [place] [address]- 6558 Nov, [facility] [place] [facility] [address] [id number] [place] [address]- 0566 Nov, [facility] [place] [facility] [address] [id number], [place] [address]- 8409 Nov, [facility] [place] [facility] [address] [id number], [place] [address]- 1720 Oct, [facility] [place] [facility] [address] [id number] [place] [address]- 1881 Sep, [facility] [address] [id number] [place] [address]- 1006 Sep, [facility] [place] [facility] [address] [id number] [place] [address]116 Sep, [facility] [address] [id number] [place] [address]- 1420 Sep, [facility] [place] [facility] [address] [id number] [place] [address]- 5056 Aug, [facility] [address] [id number] [place] [address]- 1780 Aug, [facility] [address] [id number] [place] [address]- 0046 Jul, [facility] [address] [id number] [place] [address]- 3993 Jul, [facility] [address] [id number] [place] [address]- 2687 28 Jun, 2012 [facility] [place] [facility] [address] [id number] [place] [address]- 3977 26 Jun, 2012 [facility] [address] [id number] [place] [address]- 1795 24 Jun, 2012 [facility] [place] [facility] [address] [id number] [place] [address] 2546 24 Jun, 2012 [facility] [place] [facility] [address] [id number] [place] [address]- 2549 12 Jun, 2012 [facility] [place] [facility] [address] [id number] [place] [address]- 2699 31 Apr, 2012 [facility] [place] [facility] [address] [id number] [place] [address] 2547 30 Apr, 2012 [facility] [place] [facility] [address] [id number] [place] [address]- 5456 Apr, [facility] [place] [facility] [address] [id number] [place] [address]- 0489 Mar, [facility] [place] [facility] [address] [id number] [place] [address]- 8404 Mar, [facility] [place] [facility] [address] [id number] [place] [address]- 2078 Mar, [facility] [place] [facility] [address] [id number] [place] [address]- 5292 February, [facility] [place] [facility] [address] [id number] [place] [address]- 6017 Jan, [facility] [place] [facility] [address] [id number] [place] [address]- 9808 Dec, [facility] [place] [facility] [address] [id number] [place] [address]- 9679 Dec, [facility] [place] [facility] [address] [id number] [place] [address]- 6459 Dec, [facility] [place] [facility] [address] [id number] [place] [address]- 1562 Dec, [facility] [place] [facility] [address] [id number] [place] [address]- 0882 Dec, [facility] [place] [facility] [address] [id number] [place] [address]- 7100 14 Nov, 2011 [facility] [place] [facility] [address] [id number], [place] [address]- 3350 Nov, [facility] [place] [facility] [address] [id number] [place] [address]- 7455 Oct, [facility] [place] [facility] [address] [id number], [place] [address]- 5246 Oct, [facility] [place] [facility] [address] [id number], [place] [address]- 9418 Oct, [facility] [place] [facility] [address] [id number], [place] [address]- 5906 13 Sep, 2011 [facility] [place] [facility] [address] [id number] [place] [address]- 3579 21 Aug, 2011 [facility] [place] [facility] [address] [id number] [place] [address]- 0686 10 Aug, 2011 [facility] [place] [facility] [address] [facility] [id number] [place] [address]- 4436 28 Jul, 2011 [facility] [place] [facility] [address] [id number] [place] [address]- 4999 24 Jul, 2011 [facility] [place] [facility] [address] [id number] [place] [address], [place] [address]- 2850 19 Jul, 2011 [facility] [place] [facility] [address] [id number] [place] [address]- 5835 13 Jan, 2011 [facility] [address] [facility] [id number] [place] [address], [place] [address]- 6147 29 Sep, 2010 [facility] [place] [facility] [address] [id number] [place] [address]- 4569 27 Sep, 2010 [facility] [place] [facility] [address] [facility] [id number] [place] [address] 20 Sep, 2010 [facility] [place] [facility] [address] [facility] [id number] [place] [address] 20 Sep, 2010 [facility] [place] [facility] [address] [facility] [id number] [place] [address] 06 Sep, 2010 [facility] [place] [facility] [address] [facility] [id number], [place] [address] 16 Aug, 2010 [facility] [place] [facility] [address] [id number] [place] [address] 16 Aug, 2010 [facility] [place] [facility] [address] [facility] [id number] [place] [address] 08 Aug, 2010 [facility] [place] [facility] [address] [facility] [id number] [place] [address] 19 Jul, 2010 [facility] [place] [facility] [id number] [address] Jul, [facility] [id number] [address] Jul, [facility] [id number], [place] [address] May, [facility] [id number] [address] Apr, [facility] [id number] [address] Dec, [facility] [id number] [place] [address] Sep, [facility] [id number] [address] Sep, [facility] [id number], [place] [address] Aug, [facility] [id number] [address] Aug, [facility] [id number] [address] Jul, [facility] [id number] [address] Mar, IMMUNIZATIONS Vaccine Route Administration Date Status TORADOL (IM) 60 MG/2ML (UP TO 15 MG) IM Intramuscular April 11, 2017 Administered SOCIAL HISTORY Never Assessed REASON FOR VISIT Pain management (chronic)---CRyadelina,SAMREEN PLAN OF CARE Activity Details Follow Up 3 Months Reason:Pain/DM VITAL SIGNS Height 63 in 2017-04-11 Weight 195.3 lbs 2017-04-11 Temperature 98.1 degrees Fahrenheit 2017-04-11 Heart Rate 90 bpm 2017-04-11 Respiratory Rate 20 2017-04-11 BMI 34.59 kg/m2 2017-04-11 Blood pressure systolic 136 mmHg 2017-04-11 Blood pressure diastolic 88 mmHg 2017-04-11 MEDICATIONS Medication Instructions Dosage Frequency Start Date End Date Duration Status ProAir HFA 108 (90 Base) MCG/ACT Inhalation every 4 hrs prn 2 puffs as needed Jun, 30 days Active Hydrocodone-Acetaminophen 5-325 MG TAKE ONE TABLET BY MOUTH FOUR TIMES DAILY NEEDED FOR PAIN (MUST LAST 28 DAYS) 28 Active Robaxin 500 MG Orally 3 times a day 1 tablet 8h Active Flonase 50 mcg/actuation Nasally Once a day 1 sprays by Nasal route 2 times per day in each nostril 24h 30 days Active Imitrex 100 MG Orally Once a day prn 1 tablet by Oral route 1 time per day and repeat once more after 2 hours if headache recurs PRN May, Active Cane 1 as directed 24h May, 99 days Active Zofran 8 MG Orally every 8 hours, PRN nausea 1 tablet February, Active Lidocaine 5 % Externally Three times a day 1 application to affected area as needed 8h Active Clorazepate Dipotassium 15 MG Orally 3 times a day prn must last 28 days. 1 tablet Active Nystatin 328017 UNIT/GM Externally three times a day 1 application to affected area 8h Oct, Active MS Contin 15 MG Orally every 12 hrs as needed must last 28 days 1 tablet Mar, Active Carafate 1 GM orally twice daily 1 tablet Active Glimepiride 2 MG Orally twice a day 1 tablet 12h 90 Active Zovirax 5 % Externally Twice a day 1 application to affected area 12h Active Lisinopril 5 MG Orally Once a day 1 tablet 24h 30 day(s) Active Trulicity 0.75 MG/0.5ML Subcutaneous weekly 0.5 ml 28 Active Nabumetone 500 MG Orally Twice a day 1 tablet 12h May, Active Symbicort 80-4.5 MCG/ACT Inhalation Twice a day 2 puffs 12h Jul, Active Metoprolol Tartrate 25 MG Orally Twice a day 1 tablet with food 12h Active Hydrocodone-Acetaminophen 5-325 MG Orally four times a day as needed for pain. Must last 28 days. 1 tablet Mar, Active Zithromax 500 mg Orally Once a day as directed 24h February, 03 days Active Lyrica 150 MG Orally Three times a day 1 capsule 8h Active Valacyclovir HCl 1 GM Orally every 24 hrs 1 tablet 30 Active Ezetimibe 10 MG Orally Once a day 1 tablet 24h Mar, 30 day(s) Active Bydureon 2 MG Subcutaneous weekly inject 2 mg 28 days Active Dicyclomine HCl 10 mg Orally 3 times a day, PRN 1 capsule February, Active RESULTS Name Result Date Reference Range A1C (IN HOUSE) 2017-04-11 A1C IN HOUSE 6.9 4.3 - 5.6 % Previous A1c 6.6 Lot [id number] Exp date PROCEDURES Procedure Date Ordered Result Body Site GLYCATED HEMOGLOBIN TEST April 11, 2017 TORADOL (IM) 60 MG/2ML (UP TO 15 MG) April 11, 2017 THER/PROPH/DIAG INJ, SC/IM April 11, 2017 INSTRUCTIONS MEDICATIONS ADMINISTERED No Known Medications [...] Surgical History EGD & Colonoscopy [facility] Gastritis 2015 Surgical History Right arm/hand carpal tunnel release- Dr. Ahn 2016 Hospitalization History Surgery(s) only Hospitalization History [facility]-sepsis/ARF 06/2017
--- OUTSIDE RECORDS SUMMARY | 2018-10-08 20:12 | XMS REPORT ---
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.4 Active 786929035 Problem Edema of both feet R60.0 Active 522487807 Problem Tobacco abuse Z72.0 Active 26538075 Problem Chronic migraine G43.709 Active 43777928 Problem Mixed hyperlipidemia E78.2 Active 632615958 Problem Spinal stenosis, lumbar region M48.06 Active 76054320 Problem Anxiety F41.9 Active 55724380 Problem Radiculopathy of lumbar region M54.16 Active 122290773 Problem Bulging lumbar disc M51.26 Active 091273731 Problem Asthma J45.909 Active 599275419 Problem Essential hypertension I10 Active 54582595 ALLERGIES No Information ENCOUNTERS Encounter Location Date Diagnosis [facility] [place] [id number], [place] [address] February, [facility] [place] [id number], [place] [address] February, Chronic pain G89.29 [facility] [place] [address], [place] [address] Jan, Chronic pain G89.29 [facility] [place] [id number], [place] [address] Jan, terminologist 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 Z79.4 [place] [id number] [place] [address] 36409- 1757 Jan, Encounter for Depo-Provera contraception Z30.42 [place] [id number] [place] [address] 65052- 6943 Jan, [place] [address] 41096- 5349 Jan, Chronic pain G89.29 and Anxiety F41.9 [place] [address] 75818- 9114 Jan, [place] [address] 60972- 7880 Dec, [place] [address] 68301- 5753 Dec, Gastroesophageal reflux disease without esophagitis K21.9 and Anxiety F41.9 [place] [id number] [place] [address] 76587- 4796 Dec, Essential hypertension I10 ; Mixed hyperlipidemia E78.2 ; Type 2 diabetes mellitus with diabetic neuropathy, unspecified E11.40 ; senior living 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 Z79.4 ; Chronic pain G89.29 ; HSV (herpes simplex virus) infection B00.9 ; Anxiety F41.9 and Gastroesophageal reflux disease without esophagitis K21.9 [place] [id number] [place] [address] 46263- 9201 Dec, Chronic pain G89.29 and Chronic migraine G43.709 [place] [id number] [place] [address] 41580- 9527 Nov, [place] [id number] [place] [address] 45396- 9109 Nov, Essential hypertension I10 and Chronic pain G89.29 [place] [address] 37942- 9836 Nov, Chronic pain G89.29 ; Essential hypertension I10 and Type 2 diabetes mellitus without complication E11.9 [place] [id number] [place] [address] 90954- 7802 Oct, Chronic pain G89.29 [place] [id number] [place] [address] 93859- 3562 Oct, [place] [address] 01921- 7475 Sep, Type 2 diabetes mellitus without complication E11.9 ; Essential hypertension I10 ; terminologist (current) use of insulin Z79.4 ; Chronic migraine G43.709 ; Chronic pain G89.29 and Acute non-recurrent maxillary sinusitis J01.00 [place] [id number] [place] [address] 43576- 2997 Sep, Encounter for Depo-Provera contraception Z30.42 [place] [id number] [place] [address] 51979- 0896 Sep, Chronic pain G89.29 and Radiculopathy of lumbar region M54.16 [place] [id number] [place] [address] 70375- 0480 Sep, [place] [id number] [place] [address] 85265- 1525 Sep, [place] [id number] [place] [address] 17240- 7203 Aug, Type 2 diabetes mellitus without complication E11.9 [place] [id number] [place] [address] 52570- 0202 Aug, [place] [id number] [place] [address] 56834- 9073 Aug, Radiculopathy of lumbar region M54.16 and Chronic pain G89.29 [place] [id number] [place] [address] 98852- 1301 Aug, Type 2 diabetes mellitus without complication E11.9 [facility] [place] [address] [facility] [id number] [address] Aug, Type 2 diabetes mellitus without complication E11.9 [facility] [place] [address] [place] [address] 28992- 0886 Jul, Type 2 diabetes mellitus without complication E11.9 [facility] [place] [id number] [place] [address] 95948- 6336 Jul, [facility] [place] [id number] [place] [address] 79151 2544 Jul, Chronic pain G89.29 [facility] [place] [id number] [place] [address] 16620- 1256 Jul, [facility] [place] [address] [place] [address] 61413- 4478 Jul, [facility] [place] [id number] [place] [address] 41425- 4704 Jul, Type 2 diabetes mellitus without complication E11.9 [facility] [place] [address], [place] [address] 5854 Jul, [facility] [place] [address] [place] [address] 86902- 8407 Jul, Type 2 diabetes mellitus without complication E11.9 [facility] [place] [address], [place] [address] 2932 Jul, [facility] [place] [address], [place] [address] 254 Jul, [facility] [place] [address] [place] [address] 94855- 1750 Jul, [facility] [place] [address] [place] [address] 49135- 7279 Jun, Type 2 diabetes mellitus without complication E11.9 [facility] [place] [address] [place] [address] 6599 Jun, Chronic migraine G43.709 ; Type 2 diabetes mellitus without complication E11.9 ; Calculus of right kidney N20.0 ; Yeast dermatitis B37.2 and HSV (herpes simplex virus) infection B00.9 [place] [id number] [place] [address] 54440- 2983 Jun, Type 2 diabetes mellitus without complication E11.9 [place] [address] 56085- 4323 Jun, [place] [address] 63387- 9702 Jun, Radiculopathy of lumbar region M54.16 and Chronic pain G89.29 [place] [address] 43648- 2404 Jun, Encounter for Depo-Provera contraception Z30.42 [place] [address] 50277- 7097 Jun, Type 2 diabetes mellitus without complication E11.9 [place] [id number] [place] [address] 87289- 8277 Jun, [facility] [id number] [place] [address] 20741 -9248 May, Acute nasopharyngitis (common cold) J00 [place] [id number] [place] [address] 82806- 5822 May, Chronic pain G89.29 [place] [address] 18971- 7785 May, Headache following lumbar puncture G97.1 [place] [address] 85677- 3171 May, Radiculopathy of lumbar region M54.16 [place] [address] 45122- 4007 Apr, [place] [address] 00698- 9348 Apr, Type 2 diabetes mellitus without complication E11.9 ; Chronic pain G89.29 ; Essential hypertension I10 ; Radiculopathy of lumbar region M54.16 ; Spinal stenosis, lumbar region M48.06 ; Gastroesophageal reflux disease without esophagitis K21.9 ; HSV (herpes simplex virus) infection B00.9 ; Mixed hyperlipidemia E78.2 ; Anxiety F41.9 and Asthma J45.[address] 00799- 7013 Apr, Encounter for Depo-Provera contraception Z30.[address] 990003- 2215 Apr, Chronic pain G89.29 and Anxiety F41.[address] 46737- 5959 Mar, [address] 31173- 6227 Mar, [address] 07768- 7928 Mar, Mixed hyperlipidemia E78.[address] 57274- 7839 Mar, Type 2 diabetes mellitus without complication E11.9 ; Chronic pain G89.29 ; Essential hypertension I10 ; Radiculopathy of lumbar region M54.16 ; Spinal stenosis, lumbar region M48.06 ; Gastroesophageal reflux disease without esophagitis K21.9 ; HSV (herpes simplex virus) infection B00.9 ; Mixed hyperlipidemia E78.2 and Anxiety F41.[address] 52910- 2038 Mar, [address] 97401- 7415 Mar, [address] 02653- 8989 Mar, [facility] [place] [address], [place] [address] 2128 February, Chronic pain G89.29 [facility] [place] [id number] [place] [address] 87747- 5727 February, [facility] [place] [id number] [place] [address] 88842- 2239 Jan, Chronic pain G89.29 [facility] [place] [id number] [place] [address] 99228- 0087 Jan, Type 2 diabetes mellitus without complication E11.9 [place] [id number] [place] [address] 76174- 8502 Jan, [facility] [place] [id number] [place] [address] 02580- 6687 Jan, [facility] [place] [id number] [place] [address] 16274- 9447 Jan, [facility] [place] [address] [place] [address] 98430- 0127 Jan, Type 2 diabetes mellitus without complication [...] J01.00 and Encounter for Depo-Provera contraception Z30.42 [facility] [place] [address] [place] [address] 22381- 8075 Dec, Chronic pain G89.29 [facility] [place] [address] [place] [address] 14506- 9593 Dec, Abnormal ankle brachial index (BERNARDINO) R68.89 [facility] [place] [id number] [place] [address] 33402- 8899 Dec, [address] [address] [place] [address] 57453- 9287 Dec, Routine gynecological examination Z01.419 ; Chronic [...] virus) infection B00.9 and Allergic rhinitis 477.9 [place] [id number] [place] [address] 65381- 8002 Nov, Chronic pain G89.29 [address] [address] [place] [address] 70968- 8968 02 Nov, 2016 Chronic pain G89.29 ; [...] mucoid otitis media of both ears H65.113 [place] [address] [place] [address] 26564- 2454 Oct, [address] [place] [address] 92031- 7408 Oct, Chronic pain G89.29 [place] [id number] [place] [address] 71756- 5053 Oct, Chronic pain G89.29 [address] [address] [place] [address] 75938- 2031 Sep, Chronic pain G89.29 ; Type 2 diabetes mellitus without complication E11.9 ; Essential hypertension I10 ; Radiculopathy of lumbar region M54.16 ; Spinal stenosis, lumbar region M48.06 ; Gastroesophageal reflux disease without esophagitis K21.9 ; Encounter for surveillance of injectable contraceptive Z30.42 ; Bilateral cold feet R20.9 ; Pain of left foot M79.672 and Pain in right foot M79.671 [place] [id number] [place] [address] 46429- 4449 Sep, [place] [address] 42378- 3336 Aug, [place] [address] 48265- 1991 Aug, [place] [address] 28311- 0927 Aug, Chronic pain G89.29 ; Type 2 diabetes mellitus without complication E11.9 ; Essential hypertension I10 ; Rash and nonspecific skin eruption R21 and Upper respiratory infection, acute J06.9 [place] [address] 41545- 9736 Aug, [place] [address] 03444- 4828 Aug, [place] [address] 60164- 9516 Jul, [place] [address] 97496- 1502 Jul, Dysuria R30.0 ; Encounter for Depo-Provera contraception Z30.42 ; Herpes simplex B00.9 ; Nausea & vomiting R11.2 and Asthma J45.909 [address] [address] 55971- 5793 Jun, Dysuria R30.0 [place] [address] 95321- 9069 Jun, Dysuria R30.0 [place] [address] 37027- 9735 15 Jun, 2016 [place] [address] [place] [address] 44574- 1422 Jun, [place] [id number] [place] [address] 56082- 6304 May, [place] [id number] [place] [address] 61351- 2585 May, [place] [id number] [place] [address] 82540- 8421 May, Chronic pain G89.29 ; Essential hypertension I10 ; Type 2 diabetes mellitus without complication E11.9 ; Edema of both feet R60.0 and Rash and nonspecific skin eruption R21 [place] [id number] [place] [address] 70387- 8051 Apr, [place] [id number] [place] [address] 47233- 3107 Mar, Carpal tunnel syndrome, left upper limb G56.02 and Carpal tunnel syndrome, right upper limb G56.01 [place] [id number] [place] [address] 93761- 1172 Mar, [place] [id number] [place] [address] 60590- 7602 Mar, Encounter for Depo-Provera contraception Z30.42 [address] [id number] [place] [address] 72458- 2935 February, [place] [id number] [place] [address] 22649- 2002 February, [place] [id number] [place] [address] 67124- 7573 February, Chronic pain G89.29 ; Essential hypertension I10 ; Type 2 diabetes mellitus without complication E11.9 ; HSV (herpes simplex virus) infection B00.9 ; Anxiety F41.9 ; Hypersomnia G47.10 ; Tobacco abuse Z72.0 ; Hand pain, left M79.642 ; Hand pain, right M79.641 ; Left foot pain M79.672 and Heart palpitations R00.[address] 48515- 0493 Jan, [place] [address] 09699- 2929 Jan, [place] [address] 80841- 2883 Jan, [place] [address] 12786- 8169 Jan, [address] 61358- 5771 Jan, Upper respiratory infection J06.9 and Type 2 diabetes mellitus without complication E11.[address] 94011- 7244 Dec, [address] 39094- 0502 Dec, Chronic pain G89.29 ; Essential hypertension I10 ; Type 2 diabetes mellitus without complication E11.9 ; HSV (herpes simplex virus) infection B00.9 ; Anxiety F41.9 ; Upper respiratory infection J06.9 ; Hypersomnia G47.10 and Tobacco abuse Z72.0 [id number] [place] [address] 96142- 9137 Dec, Encounter for Depo-Provera contraception Z30.42 [id number] [place] [address] 29563- 0380 Dec, [address] 57054- 9312 Dec, Chronic pain G89.29 ; Sinusitis J32.9 ; Snoring R06.83 and Daytime hypersomnia G47.[address] 95769- 8989 Nov, HSV (herpes simplex virus) infection B00.9 ; Encounter for Papanicolaou smear for cervical cancer screening Z12.4 ; Screening for STD sexually transmitted disease Z11.3 and Bartholin's gland cyst N75.0 [place] [id number] [place] [address] 81240- 6780 Nov, [place] [id number] [place] [address] 80976- 7175 Nov, [place] [id number] [place] [address] 94025- 7778 Nov, Essential hypertension I10 ; Type 2 diabetes mellitus without complication E11.9 ; HSV (herpes simplex virus) infection B00.9 ; Spinal stenosis, lumbar region M48.06 and Vaginal yeast infection B37.3 [place] [id number] [place] [address] 15536- 9114 Nov, [place] [id number] [place] [address] 17377- 1177 Nov, [place] [id number] [place] [address] 12059- 7438 Oct, [place] [id number] [place] [address] 58875- 1012 Oct, HSV (herpes simplex virus) infection B00.9 ; Yeast infection B37.9 ; Change in bowel habit R19.4 ; Nausea & vomiting R11.2 and Gastroesophageal reflux disease without esophagitis K21.9 [place] [address] [place] [address] 79828- 9396 Oct, [place] [id number] [place] [address] 82273- 9247 Oct, Type 2 diabetes mellitus without complication E11.9 ; Essential hypertension I10 and Acute maxillary sinusitis, recurrence not specified J01.00 [place] [id number] [place] [address] 76598- 4861 Oct, [facility] [place] [id number] [place] [address] 50544- 4800 Oct, [address] 97735- 7246 Oct, Exposure to head lice Z20.7 ; Blood glucose abnormal R73.09 ; Boil of buttock L02.32 and Type 2 diabetes mellitus without complication E11.[address] 54679- 0543 Oct, [address] 39711- 8577 Sep, [address] 14648- 3705 Sep, [address] 60274- 3081 Aug, Encounter for Depo-Provera contraception Z30.[address] 64500- 1650 Aug, Anxiety F41.9 ; Spinal stenosis, lumbar region M48.06 ; Radiculopathy of lumbar region M54.16 ; Asthma J45.909 ; GERD (gastroesophageal reflux disease) K21.9 ; Essential hypertension I10 and Long-term use of high- risk medication Z79.[address] 24009- 3152 Jul, [address] 10048- 0207 Jun, Hemorrhoid 455.[address] 57209- 4501 Jun, [address] 70153- 9501 Jun, Anxiety 300.00 ; Asthma 493.90 ; Hyperhidrosis 705.21 ; Chest discomfort 786.59 and Upper respiratory infection 465.[id number] [place] [address] 69860- 5870 May, Encounter for Depo-Provera contraception V25.49 [place] [address] 59074- 0097 May, [place] [address] 99573- 3251 May, [place] [address] 11427- 5708 May, Spinal stenosis of lumbar region with radiculopathy 724.02 ; Bulging of intervertebral disc between L4 and L5 722.10 ; GERD ( gastroesophageal reflux disease) 530.81 ; Chronic pain 338.29 ; Declining mobility 799.89 and Epigastric pain 789.06 [place] [address] 13140- 8274 Apr, [address] 75512- 9202 Apr, Nausea 787.02 and Heart burn 787.[address] 52962- 5426 Mar, Lumbago 724.2 ; Vitamin D deficiency 268.9 ; Anxiety 300.00 ; Allergic rhinitis 477.9 and Contraceptive surveillance V25.[address] 96823- 0070 February, 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 ; Chronic pain 338.29 and Vaginal discharge 623.5 [place] [address] 02109- 9898 February, [address] 68263- 8844 February, [place] [address] 00947- 7423 Jan, [place] [address] [place] [address] [place] [address]- 7586 13 Jan, 2015 [facility] [place] [facility] [address] [id number] [place] [address]- 0234 26 Dec, 2014 [facility] [place] [facility] [address] [id number] [place] [address]- 2023 26 Dec, 2014 [facility] [place] [facility] [address] [id number] [place] [address]- 6698 Dec, [facility] [place] [facility] [address] [id number] [place] [address]- 8595 Dec, [facility] [place] [facility] [address] [id number] [place] [address]- 7087 Dec, [facility] [place] [facility] [address] [id number] [place] [address]- 7364 18 Dec, 2014 [facility] [place] [facility] [address] [id number] [place] [address]- 4511 Dec, [facility] [place] [facility] [address] [id number] [place] [address]- 6761 Dec, [facility] [place] [facility] [address] [id number] [place] [address]- 4187 Dec, [facility] [place] [facility] [address] [facility] [id number] [place] [address]- 4222 Dec, [facility] [place] [facility] [address] [id number] [place] [address]- 9381 Dec, [facility] [place] [facility] [address] [id number] [place] [address]- 1943 Dec, [facility] [place] [facility] [address] [id number] [place] [address]- 3171 Nov, [facility] [place] [facility] [address] [id number] [place] [address]- 7143 Nov, [facility] [place] [facility] [address] [id number] [place] [address]- 2419 24 Nov, 2014 [facility] [place] [facility] [address] [id number] [place] [address]- 2806 24 Nov, 2014 [facility] [place] [facility] [address] [id number] [place] [address]- 0696 23 Nov, 2014 [facility] [place] [facility] [address] [facility] [id number] [place] [address]- 2286 23 Nov, 2014 [facility] [place] [facility] [address] [facility] [id number] [place] [address] 16 Nov, 2014 [facility] [place] [facility] [address] [id number] [place] [address] 16 Nov, 2014 [facility] [place] [facility] [address] [id number] [place] [address] 13 Nov, 2014 [facility] [place] [facility] [address] [id number] [place] [address] 13 Nov, 2014 [facility] [place] [facility] [address] [id number] [place] [address] 38[address] 13 Nov, 2014 [facility] [place] [facility] [address] [id number] [place] [address] 13 Nov, 2014 [facility] [place] [facility] [address] [id number] [place] [address] 365[address] 13 Nov, 2014 [facility] [place] [facility] [address] [id number] [place] [address] 2546 13 Nov, 2014 [facility] [place] [facility] [address] [id number] [place] [address]- [address] 13 Nov, 2014 [facility] [place] [facility] [address] [id number] [place] [address]- 15[address] 13 Nov, 2014 [facility] [place] [facility] [address] [id number] [place] [address] 10 Nov, 2014 [facility] [place] [facility] [address] [id number] [place] [address] 10 Nov, 2014 [facility] [place] [facility] [address] [id number] [place] [address] Nov, 2014 [facility] [place] [facility] [address] [id number] [place] [address]- 8466 Nov, 2014 [facility] [place] [facility] [address] [id number] [place] [address]- [address] Nov, 2014 [facility] [place] [facility] [address] [id number] [place] [address] Nov, [facility] [place] [facility] [address] [id number] [place] [address]- [address] Nov, [facility] [place] [facility] [address] [id number] [place] [address] Oct, [facility] [place] [facility] [address] [id number] [place] [address] 0[address] Oct, [facility] [place] [facility] [address] [id number] [place] [address] 6703 Oct, [facility] [place] [facility] [address] [id number] [place] [address] 5931 Oct, [facility] [place] [facility] [address] [id number] [place] [address] 8297 Oct, [facility] [place] [facility] [address] [id number], [place] [address] Oct, [facility] [place] [facility] [address] [id number], [place] [address] Oct, [facility] [place] [facility] [address] [id number] [place] [address]- 7189 Oct, [facility] [place] [facility] [address] [id number] [place] [address]- 5787 Oct, [facility] [place] [facility] [address] [id number] [place] [address]- 4677 Oct, [facility] [place] [facility] [address] [id number], [place] [address] Oct, [facility] [address] [id number] [place] [address] 3417 Oct, [facility] [place] [facility] [address] [id number] [place] [address]- 6303 Oct, [facility] [place] [facility] [address] [id number] [place] [address]- 7988 Oct, [facility] [place] [facility] [address] [id number] [place] [address]- 0178 Oct, [facility] [place] [facility] [address] [id number] [place] [address]- 0739 Oct, [facility] [place] [facility] [address] [id number] [place] [address]- 3414 Oct, [facility] [address] [id number] [place] [address]- 1327 Oct, [facility] [place] [facility] [address] [id number] [place] [address]- 7533 Oct, [facility] [place] [facility] [address] [id number] [place] [address]- 1841 Oct, [facility] [place] [facility] [address] [facility] [id number] [place] [address]- 9153 Oct, [facility] [place] [facility] [address] [id number] [place] [address]- 0325 Sep, [facility] [place] [facility] [address] [id number], [place] [address]- [address]268 29 Sep, 2014 [facility] [place] [facility] [address] [id number] [place] [address]- 8936 Sep, [facility] [place] [facility] [address] [id number] [place] [address]- 7198 Sep, [facility] [place] [facility] [address] [id number] [place] [address]- 9487 17 Sep, 2014 [facility] [place] [facility] [address] [id number] [place] [address]- 9213 17 Sep, 2014 [facility] [place] [facility] [address] [id number] [place] [address]- 2636 15 Sep, 2014 [facility] [place] [facility] [address] [id number] [place] [address]- 7076 15 Sep, 2014 [facility] [place] [facility] [address] [id number] [place] [address]- 3096 12 Sep, 2014 [facility] [place] [facility] [address] [id number] [place] [address]- 4656 12 Sep, 2014 [facility] [place] [facility] [address] [id number] [place] [address]- 3639 Sep, [facility] [place] [facility] [address] [id number] [place] [address]- 1455 Sep, [facility] [place] [facility] [address] [id number] [place] [address]- 2355 Sep, [facility] [place] [facility] [address] [id number] [place] [address]- 0950 Sep, [facility] [place] [facility] [address] [id number] [place] [address]- 2946 Sep, [facility] [place] [facility] [address] [id number] [place] [address]- 8600 Sep, [facility] [place] [facility] [address] [id number] [place] [address]- 6947 Sep, [facility] [place] [facility] [address] [id number] [place] [address]- 8565 Sep, [facility] [place] [facility] [address] [id number] [place] [address]- 8126 Sep, [facility] [place] [facility] [address] [id number] [place] [address] 08 Sep, 2014 [facility] [place] [facility] [address] [id number] [place] [address]- 7773 Aug, [facility] [place] [facility] [address] [id number] [place] [address]- 1340 Aug, [facility] [place] [facility] [address] [id number] [place] [address]- 4665 Aug, [facility] [place] [facility] [address] [id number] [place] [address]- 4177 Aug, [facility] [place] [facility] [address] [id number] [place] [address]- 2032 Aug, [facility] [place] [facility] [address] [id number] [place] [address]- 3500 Aug, [facility] [place] [facility] [address] [id number] [place] [address]- 7343 Aug, [facility] [place] [facility] [address] [id number] [place] [address]- 3471 Aug, [facility] [place] [facility] [address] [id number] [place] [address]- 7684 Aug, [facility] [place] [facility] [address] [id number] [place] [address]- 7457 Jul, [facility] [place] [facility] [address] [id number] [place] [address]- 6217 Jul, [facility] [place] [facility] [address] [id number], [place] [address]- 7454 Jul, [facility] [place] [facility] [address] [id number], [place] [address]- 4341 Jul, [facility] [place] [facility] [address] [id number] [place] [address]- 0979 Jul, [facility] [place] [facility] [address] [id number], [place] [address] 9704 Jul, [facility] [place] [facility] [address] [id number], [place] [address]- 6536 Jul, [facility] [place] [facility] [address] [id number] [place] [address]- 3555 13 Jul, 2013 [facility] [place] [facility] [address] [id number] [place] [address]- 0616 10 Jul, 2013 [facility] [place] [facility] [address] [id number] [place] [address]- 0486 10 Jul, 2013 [facility] [place] [facility] [address] [id number] [place] [address]- 8956 10 Jul, 2013 [facility] [place] [facility] [address] [id number] [place] [address] 2547 10 Jul, 2013 [facility] [place] [facility] [address] [id number] [place] [address]- 1012 07 Jul, 2014 [facility] [place] [facility] [address] [id number] [place] [address]- 3485 07 Jul, 2014 [facility] [place] [facility] [address] [id number] [place] [address]- 3946 30 Sep, 2013 [facility] [place] [facility] [address] [id number] [place] [address] 2542 30 Sep, 2013 [facility] [place] [facility] [address] [id number] [place] [address] 2546 25 Sep, 2013 [facility] [place] [facility] [address] [id number] [place] [address] 2543 25 Sep, 2013 [facility] [place] [facility] [address] [id number] [place] [address] 2546 25 Sep, 2013 [facility] [place] [facility] [address] [id number] [place] [address] 2546 25 Sep, 2013 [facility] [place] [facility] [address] [id number] [place] [address] 2546 24 Sep, 2013 [facility] [place] [facility] [address] [id number] [place] [address] 2546 24 Sep, 2013 [facility] [place] [facility] [address] [id number] [place] [address] 2549 22 Sep, 2013 [facility] [place] [facility] [address] [id number] [place] [address]- 7218 22 Sep, 2013 [facility] [place] [facility] [address] [id number] [place] [address]- 8119 17 Sep, 2013 [facility] [place] [facility] [address] [id number] [place] [address]- 6803 17 Sep, 2013 [facility] [place] [facility] [address] [id number] [place] [address]- 8851 16 Sep, 2013 [facility] [place] [facility] [address] [id number] [place] [address]- 2654 16 Sep, 2013 [facility] [place] [facility] [address] [id number] [place] [address]- 9259 15 Jun, 2013 [facility] [place] [facility] [address] [id number] [place] [address]- 1883 15 Jun, 2013 [facility] [place] [facility] [address] [id number] [place] [address]- 6491 12 Jun, 2013 [facility] [place] [facility] [address] [id number] [place] [address]- 0778 12 Jun, 2013 [facility] [place] [facility] [address] [id number] [place] [address]- 0912 11 Jun, 2013 [facility] [place] [facility] [address] [id number] [place] [address]- 9464 11 Jun, 2013 [facility] [place] [facility] [address] [id number] [place] [address]- 2549 11 Jun, 2013 [facility] [place] [facility] [address] [id number] [place] [address]- 2543 11 Jun, 2013 [facility] [place] [facility] [address] [id number] [place] [address]- 2545 09 Sep, 2013 [facility] [place] [facility] [address] [id number] [place] [address]- 7824 09 Sep, 2013 [facility] [place] [facility] [address] [id number] [place] [address]- 7398 Jun, [facility] [place] [facility] [address] [id number] [place] [address]- 7959 Jun, [facility] [place] [facility] [address] [id number] [place] [address]- 4077 May, [facility] [place] [facility] [address] [id number] [place] [address]- 8905 May, [facility] [place] [facility] [address] [id number] [place] [address]- 9703 May, [facility] [place] [facility] [address] [id number] [place] [address]- 8967 May, [facility] [place] [facility] [address] [id number] [place] [address]- 7941 May, [facility] [place] [facility] [address] [id number] [place] [address]- 2645 May, [facility] [place] [facility] [address] [id number] [place] [address]- 9085 May, [facility] [place] [facility] [address] [id number] [place] [address]- 8354 May, [facility] [place] [facility] [address] [id number] [place] [address]- 8840 May, [facility] [place] [facility] [address] [id number] [place] [address]- 4433 May, [facility] [place] [facility] [address] [id number] [place] [address]- 3134 May, [facility] [place] [facility] [address] [id number] [place] [address]- 6780 May, [facility] [place] [facility] [address] [id number] [place] [address]- 2835 May, [facility] [place] [facility] [address] [id number] [place] [address]- 5231 Apr, [facility] [place] [facility] [address] [id number] [place] [address]- 9556 Apr, [facility] [place] [facility] [address] [id number] [place] [address]- 0637 Apr, [facility] [place] [facility] [address] [id number] [place] [address]- 8775 Apr, [facility] [place] [facility] [address] [id number] [place] [address]- 0808 Apr, [facility] [place] [facility] [address] [id number] [place] [address]- 7816 Mar, [facility] [place] [facility] [address] [id number] [place] [address]- 7844 Mar, [facility] [place] [facility] [address] [id number] [place] [address]- 3042 Mar, [facility] [place] [facility] [address] [id number] [place] [address]- 9982 February, [facility] [address] [id number] [place] [address]- 0591 February, [facility] [place] [facility] [address] [id number] [place] [address]- 6931 February, [facility] [address] [id number] [place] [address]- 3699 February, [facility] [place] [facility] [address] [id number] [place] [address]- 0333 February, [facility] [place] [facility] [address] [id number] [place] [address]- 9570 February, [facility] [place] [facility] [address] [id number] [place] [address]- 2440 February, [facility] [place] [facility] [address] [id number] [place] [address]- 2526 February, [facility] [place] [facility] [address] [id number] [place] February, [facility] [place] [facility] [address] [id number] [place] [address]- 7781 Jan, [facility] [place] [facility] [address] [id number] [place] [address]- 5960 Jan, [facility] [place] [facility] [address] [id number] [place] [address]- 1350 Jan, [facility] [place] [facility] [address] [id number] [place] [address]- 2247 Jan, [facility] [place] [facility] [address] [id number] [place] [address]- 2783 Jan, [facility] [place] [facility] [address] [id number] [place] [address]- 8161 Dec, [facility] [place] [facility] [address] [id number] [place] [address]- 3609 Dec, [facility] [place] [facility] [address] [id number] [place] [address]- 3968 Dec, [facility] [place] [facility] [address] [id number] [place] [address]- 8176 Dec, [facility] [place] [facility] [address] [id number] [place] [address]- 2555 Dec, [facility] [place] [facility] [address] [id number] [place] [address]- 8599 Nov, [facility] [place] [facility] [address] [id number] [place] [address]- 7122 Nov, [facility] [place] [facility] [address] [id number] [place] [address]- 1210 Nov, [facility] [place] [facility] [address] [id number] [place] [address]- 7560 Nov, [facility] [place] [facility] [address] [id number] [place] [address]- 3107 Oct, [facility] [place] [facility] [address] [id number] [place] [address]- 3901 30 Oct, 2013 [facility] [place] [facility] [address] [id number] [place] [address]- 7533 Oct, [facility] [place] [facility] [address] [id number] [place] [address]- 6451 Oct, [facility] [place] [facility] [address] [id number] [place] [address]- 4489 Oct, [facility] [place] [facility] [address] [id number] [place] [address]- 0347 Oct, [facility] [place] [facility] [address] [id number] [place] [address]- 9028 Oct, [facility] [place] [facility] [address] [id number] [place] [address]- 2579 Oct, [facility] [place] [facility] [address] [id number] [place] [address]- 1629 Oct, [facility] [place] [facility] [address] [id number] [place] [address]- 5973 Oct, [facility] [place] [facility] [address] [id number] [place] [address]- 4083 Aug, [facility] [place] [facility] [address] [id number] [place] [address]- 7615 Aug, [facility] [place] [facility] [address] [id number] [place] [address]- 3917 Jul, [facility] [place] [facility] [address] [id number] [place] [address]- 9307 Jul, [facility] [place] [facility] [address] [id number] [place] [address]- 7834 Jul, [facility] [place] [facility] [address] [id number] [place] [address]- 5351 Jul, [facility] [place] [facility] [address] [id number] [place] [address]- 6409 Jul, [facility] [place] [facility] [address] [id number] [place] [address]- 1608 Jul, [facility] [place] [facility] [address] [id number] [place] [address]- 0823 Apr, [facility] [place] [facility] [address] [id number] [place] [address]- 8194 Dec, [facility] [place] [facility] [address] [id number] [place] [address]- 4137 Nov, [facility] [place] [facility] [address] [id number] [place] [address]- 1931 Nov, [facility] [place] [facility] [address] [id number] [place] [address]- 0679 Nov, [facility] [place] [facility] [address] [id number] [place] [address]- 1379 Oct, [facility] [place] [facility] [address] [id number] [place] [address]- 1690 Sep, [facility] [place] [facility] [address] [id number] [place] [address]- 1628 Sep, [facility] [place] [facility] [address] [id number] [place] [address]- 3753 Sep, [facility] [place] [facility] [address] [id number] [place] [address]- 4525 Sep, [facility] [place] [facility] [address] [id number], [place] [address]- 0675 Aug, [facility] [place] [facility] [address] [id number] [place] [address]- 4632 Aug, [facility] [place] [facility] [address] [id number] [place] [address]- 7291 Jul, [facility] [place] [facility] [address] [id number] 3918 Jul, [facility] [place] [facility] [address] [id number], [place] [address]- 0214 28 Jun, 2012 [facility] [place] [facility] [address] [id number] [place] [address]- 6066 26 Jun, 2012 [facility] [place] [facility] [address] [id number] [place] [address]- 1636 24 Jun, 2012 [facility] [place] [facility] [address] [id number] [place] [address]- 6796 24 Jun, 2012 [facility] [place] [facility] [address] [id number] [place] [address]- 8592 12 Jun, 2012 [facility] [place] [facility] [address] [id number] [place] [address]- 4463 31 Apr, 2012 [facility] [place] [facility] [address] [id number] [place] [address]- 6159 30 Apr, 2012 [facility] [place] [facility] [address] [id number] [place] [address]- 2924 Apr, [facility] [place] [facility] [address] [id number] [place] [address]- 8872 Mar, [facility] [place] [facility] [address] [id number] [place] [address]- 9306 Mar, [facility] [place] [facility] [address] [id number] [place] [address]- 2592 Mar, [facility] [place] [facility] [address] [id number] [place] [address]- 1735 February, [facility] [place] [facility] [address] [id number] [place] [address]- 6551 Jan, [facility] [place] [facility] [address] [id number] [place] [address]- 5963 Dec, [facility] [place] [facility] [address] [id number] [place] [address]- 3389 Dec, [facility] [place] [facility] [address] [id number] [place] [address]- 4900 Dec, [facility] [place] [facility] [address] [id number] [place] [address]- 8582 19 Dec, 2011 [facility] [place] [facility] [address] [id number] [place] [address]- 3840 Dec, [facility] [place] [facility] [address] [id number] [place] [address]- 9746 14 Nov, 2011 [facility] [place] [facility] [address] [id number] [place] [address]- 6726 13 Nov, 2011 [facility] [place] [facility] [address] [id number] [place] [address]- 5890 Oct, [facility] [place] [facility] [address] [id number] [place] [address]- 0330 Oct, [facility] [place] [facility] [address] [id number] [place] [address]- 9202 Oct, [facility] [place] [facility] [address] [id number] [place] [address]- 6520 Sep, [facility] [place] [facility] [address] [id number] [place] [address]- 0446 Aug, [facility] [place] [facility] [address] [id number] [place] [address]- 8690 Aug, [facility] [place] [facility] [address] [id number] [place] [address] 28 Jul, 2011 [facility] [place] [facility] [address] [id number] [place] [address] 24 Jul, 2011 [facility] [place] [facility] [address] [id number] [place] [address] 19 Jul, 2011 [facility] [place] [facility] [address] [id number] [place] [address] 13 Jan, 2011 [facility] [place] [facility] [address] [id number] [place] [address] 29 Sep, 2010 [facility] [place] [facility] [address] [id number] [place] [address] Sep, [facility] [place] [facility] [address] [id number] [place] [address] Sep, [facility] [place] [facility] [address] [id number] [place] [address] Sep, [facility] [place] [facility] [address] [facility] [id number] [place] [address] Sep, [facility] [place] [facility] [address] [id number] [place] [address] Aug, [facility] [place] [facility] [address] [id number] [place] [address] 16 Aug, 2010 [facility] [place] [facility] [address] [id number] [place] [address] 08 Aug, 2010 [facility] [place] [facility] [address] [id number] [place] [address] Jul, [facility] [place] [facility] [address] [id number], [place] [address] Jul, [facility] [place] [facility] [address] [id number], [place] [address] Jul, [facility] [place] [facility] [address] [id number], [place] [address] May, [facility] [place] [facility] [address] [id number], [place] [address] 13 Apr, 2010 [facility] [place] [facility] [address] [id number], [place] [address] 18 Dec, 2009 [facility] [place] [facility] [address] [id number], [place] [address] 17 Sep, 2009 [facility] [place] [facility] [address] [id number], [place] [address] 17 Sep, 2009 [facility] [place] [facility] [address] [facility] [id number], [place] [address] Aug, [facility] [place] [facility] [address] [id number] [place] [address] Aug, [facility] [place] [address] [id number] [place] [address] Jul, [facility] [place] [address] [id number] [place] [address] 10 Mar, 2009 IMMUNIZATIONS No Known Immunizations [...]
--- OUTSIDE RECORDS SUMMARY | 2018-10-08 20:13 | XMS REPORT ---
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 Active 495765773 Problem Edema of both feet R60.0 Active 383377702 Problem Tobacco abuse Z72.0 Active 71327761 Problem Chronic migraine G43.709 Active 39377318 Problem Mixed hyperlipidemia E78.2 Active 898044306 Problem Spinal stenosis, lumbar region M48.06 Active 88966502 Problem Anxiety F41.9 Active 56784707 Problem Radiculopathy of lumbar region M54.16 Active 892792962 Problem Bulging lumbar disc M51.26 Active 822986034 Problem Asthma J45.909 Active 915955367 Problem Essential hypertension I10 Active 96823311 ALLERGIES No Information ENCOUNTERS Encounter Location Date Diagnosis [place] [id number] [place] [address] 16700- 1298 Mar, HSV (herpes simplex virus) infection B00.9 ; Anxiety F41.9 and Chronic pain G89.29 [facility] [address] [place] [id number] [place] [address] 42035- 9320 Mar, [facility] [address] [place] [address] 60365- 4916 Mar, Chronic pain G89.29 [place] [address] 99325- 0619 February, Chronic pain G89.29 [place] [address] 85963- 2562 Jan, Chronic pain G89.29 [place] [address] 57069- 8109 Jan, shelter 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 Z79.4 [place] [address] 36019- 9264 Jan, Encounter for Depo-Provera contraception Z30.42 [place] [address] 32568- 5535 Jan, [place] [address] 82968- 4714 Jan, Chronic pain G89.29 and Anxiety F41.9 [place] [address] 05355- 7062 Jan, [place] [address] 64738- 1923 Dec, [place] [address] 38287- 1998 Dec, Gastroesophageal reflux disease without esophagitis K21.9 and Anxiety F41.9 [place] [address] 56072- 2882 Dec, Essential hypertension I10 ; Mixed hyperlipidemia E78.2 ; Type 2 diabetes mellitus with diabetic neuropathy, unspecified E11.40 ; 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 ; Chronic pain G89.29 ; HSV (herpes simplex virus) infection B00.9 ; Anxiety F41.9 and Gastroesophageal reflux disease without esophagitis K21.9 [place] [address] 14094- 5674 07 Dec, 2017 Chronic pain G89.29 and Chronic migraine G43.709 [place] [address] [place] [address] 5093 Nov, [place] [address] [place] [id number] [place] [address] 50968- 9822 Nov, Essential hypertension I10 and Chronic pain G89.29 [place] [address] [place] [id number] [place] [address] 87329- 9201 Nov, Chronic pain G89.29 ; Essential hypertension I10 and Type 2 diabetes mellitus without complication E11.9 [place] [address] 08387- 6007 Oct, Chronic pain G89.29 [place] [address] 48574- 9817 Oct, [place] [address] [place] [id number] [place] [address] 68479- 4775 Sep, Type 2 diabetes mellitus without complication E11.9 ; Essential hypertension I10 ; termination clerk (current) use of insulin Z79.4 ; Chronic migraine G43.709 ; Chronic pain G89.29 and Acute non-recurrent maxillary sinusitis J01.00 [place] [address] [place] [id number] [place] [address] 44628- 7013 Sep, Encounter for Depo-Provera contraception Z30.42 [place] [address] [place] [id number] [place] [address] 41224- 7543 Sep, Chronic pain G89.29 and Radiculopathy of lumbar region M54.16 [place] [address] [place] [id number] [place] [address] 59665- 1279 Sep, [place] [address] 22668- 9359 Sep, [place] [address] [place] [id number] [place] [address] 29640- 0178 Aug, Type 2 diabetes mellitus without complication E11.9 [place] [address] [place] [id number] [place] [address] 46722- 3540 Aug, [facility] [address] [facility] [id number], [place] [address] 2546 Aug, Radiculopathy of lumbar region M54.16 and Chronic pain G89.29 [facility] [address] [id number], [place] [address] 2546 Aug, Type 2 diabetes mellitus without complication E11.9 [facility] [address] [id number], [place] [address] 2546 Aug, Type 2 diabetes mellitus without complication E11.9 [facility] [address] [id number], [place] [address]- 8526 Jul, Type 2 diabetes mellitus without complication E11.9 [facility] [address] [facility] [id number], [place] [address]- 9906 Jul, [facility] [address] [facility] [id number], [place] [address]- 5765 Jul, Chronic pain G89.29 [facility] [address] [id number], [place] [address] 2546 Jul, [facility] [address] [facility] [id number], [place] [address]- 8596 Jul, [facility] [address] [facility] [id number], [place] [address]- 6501 Jul, Type 2 diabetes mellitus without complication E11.9 [facility] [address] [facility] [id number], [place] [address]- 9516 Jul, [facility] [address] [facility] [id number], [place] [address]- 2547 Jul, Type 2 diabetes mellitus without complication E11.9 [facility] [address] [facility] [id number], [place] [address] 2546 Jul, [facility] [address] [facility] [id number], [place] [address]- 3866 Jul, [facility] [address] [place] [id number] [place] [address] 85877- 3879 Jul, [place] [address] 31428- 7880 Jun, Type 2 diabetes mellitus without complication E11.9 [facility] [address] [place] [id number] [place] [address] 98230- 3445 Jun, Chronic migraine G43.709 ; Type 2 diabetes mellitus without complication E11.9 ; Calculus of right kidney N20.0 ; Yeast dermatitis B37.2 and HSV (herpes simplex virus) infection B00.9 [place] [address] 54370- 5141 Jun, Type 2 diabetes mellitus without complication E11.9 [place] [address] [place] [id number] [place] [address] 63651- 1867 Jun, [place] [address] 16504- 9174 Jun, Radiculopathy of lumbar region M54.16 and Chronic pain G89.29 [place] [address] [place] [id number] [place] [address] 17129- 4511 Jun, Encounter for Depo-Provera contraception Z30.42 [place] [address] [place] [id number] [place] [address] 18710- 7393 Jun, Type 2 diabetes mellitus without complication E11.9 [place] [address] [place] [id number] [place] [address] 70162- 9618 Jun, [facility] [address] [place] [id number] [place] [address] 10482 -3130 May, Acute nasopharyngitis (common cold) J00 [facility] [address] [place] [id number] [place] [address] 64772- 5871 May, Chronic pain G89.29 [facility] [address] [place] [id number] [place] [address] 03577- 2146 May, Headache following lumbar puncture G97.1 [place] [address] [place] [id number] [place] [address] 21667- 1610 May, Radiculopathy of lumbar region M54.16 [place] [address] [place] [id number] [place] [address] 83987- 4461 Apr, [place] [address] [place] [id number] [place] [address] 51255- 0793 Apr, Type 2 diabetes mellitus without complication E11.9 ; Chronic pain G89.29 ; Essential hypertension I10 ; Radiculopathy of lumbar region M54.16 ; Spinal stenosis, lumbar region M48.06 ; Gastroesophageal reflux disease without esophagitis K21.9 ; HSV (herpes simplex virus) infection B00.9 ; Mixed hyperlipidemia E78.2 ; Anxiety F41.9 and Asthma J45.909 [place] [address] [place] [id number] [place] [address] 75634- 2182 Apr, Encounter for Depo-Provera contraception Z30.42 [place] [address] [place] [id number] [place] [address] 92516- 5813 Apr, Chronic pain G89.29 and Anxiety F41.9 [place] [address] [place] [id number] [place] [address] 67787- 7391 Mar, [place] [address] [place] [id number] [place] [address] 75399- 9695 Mar, [place] [address] [place] [id number] [place] [address] 25039- 5756 Mar, Mixed hyperlipidemia E78.2 [place] [address] [place] [id number] [place] [address] 43299- 3770 Mar, Type 2 diabetes mellitus without complication E11.9 ; Chronic pain G89.29 ; Essential hypertension I10 ; Radiculopathy of lumbar region M54.16 ; Spinal stenosis, lumbar region M48.06 ; Gastroesophageal reflux disease without esophagitis K21.9 ; HSV (herpes simplex virus) infection B00.9 ; Mixed hyperlipidemia E78.2 and Anxiety F41.9 [facility] [address] [address]- 9124 Mar, [facility] [address] [place] [id number] [place] [address] 90152- 7934 Mar, [facility] [address] [place] [id number] [place] [address] 42387- 4898 Mar, [facility] [address] [place] [id number] [place] [address] 81424- 4639 February, Chronic pain G89.29 [facility] [address] [place] [id number] [place] [address] 10086- 6533 February, [facility] [address] [place] [id number] [place] [address] 60753- 1905 Jan, Chronic pain G89.29 [facility] [address] [place] [id number] [place] [address] 50786- 2750 Jan, Type 2 diabetes mellitus without complication E11.9 [facility] [address] [place] [id number] [place] [address] 02612- 9633 Jan, [facility] [address] [place] [id number] [place] [address] 77406- 5743 Jan, [facility] [address] [place] [id number] [place] [address] 98585- 2337 Jan, [facility] [address] [place] [id number] [place] [address] 64931- 0292 Jan, Type 2 diabetes mellitus without complication [...] J01.00 and Encounter for Depo-Provera contraception Z30.42 [place] [address] [place] [id number] [place] [address] 35125- 6064 Dec, Chronic pain G89.29 [place] [address] 52383- 8670 Dec, Abnormal ankle brachial index (BERNARDINO) R68.89 [place] [address] [place] [id number] [place] [address] 75013- 4272 Dec, [place] [address] 59275- 1602 Dec, Routine gynecological examination Z01.419 ; Chronic [...] virus) infection B00.9 and Allergic rhinitis 477.9 [place] [address] [place] [id number] [place] [address] 97231- 4936 28 Nov, 2016 Chronic pain G89.29 [place] [address] 94974- 4915 02 Nov, 2016 Chronic pain G89.29 ; [...] mucoid otitis media of both ears H65.113 [place] [address] [place] [id number] [place] [address] 79121- 2719 Oct, [place] [address] [place] [id number] [place] [address] 17199- 1850 Oct, Chronic pain G89.29 [place] [address] [place] [id number] [place] [address] 19109- 8527 Oct, Chronic pain G89.29 [place] [address] 16018- 2974 Sep, Chronic pain G89.29 ; Type 2 diabetes mellitus without complication E11.9 ; Essential hypertension I10 ; Radiculopathy of lumbar region M54.16 ; Spinal stenosis, lumbar region M48.06 ; Gastroesophageal reflux disease without esophagitis K21.9 ; Encounter for surveillance of injectable contraceptive Z30.42 ; Bilateral cold feet R20.9 ; Pain of left foot M79.672 and Pain in right foot M79.671 [place] [address] 97957- 7587 Sep, [place] [address] 21351- 9324 Aug, [place] [address] 47059- 7322 Aug, [place] [address] 80162- 8550 Aug, Chronic pain G89.29 ; Type 2 diabetes mellitus without complication E11.9 ; Essential hypertension I10 ; Rash and nonspecific skin eruption R21 and Upper respiratory infection, acute J06.9 [place] [address] 21067- 6478 Aug, [place] [address] 51256- 6025 Aug, [place] [address] 45501- 2419 Jul, [address] 45149- 0395 Jul, Dysuria R30.0 ; Encounter for Depo-Provera contraception Z30.42 ; Herpes simplex B00.9 ; Nausea & vomiting R11.2 and Asthma J45.909 [facility] [address] [place] [id number] [place] [address] 78968- 8867 21 Jun, 2016 Dysuria R30.0 [facility] [address] [place] [id number] [place] [address] 30435- 9807 19 Jun, 2016 Dysuria R30.0 [facility] [address] [place] [id number] [place] [address] 68230- 7952 15 Jun, 2016 [facility] [address] [place] [id number] [place] [address] 47788- 7373 13 Jun, 2016 [facility] [address] [place] [id number] [place] [address] 98772- 6527 May, [facility] [address] [place] [id number] [place] [address] 84712- 1177 May, [facility] [address] [place] [id number] [place] [address] 07401- 0583 May, Chronic pain G89.29 ; Essential hypertension I10 ; Type 2 diabetes mellitus without complication E11.9 ; Edema of both feet R60.0 and Rash and nonspecific skin eruption R21 [place] [address] [place] [id number] [place] [address] 02242- 4942 Apr, [facility] [address] [place] [id number] [place] [address] 64702- 8324 Mar, Carpal tunnel syndrome, left upper limb G56.02 and Carpal tunnel syndrome, right upper limb G56.01 [facility] [address] [place] [id number] [place] [address] 99006- 2917 Mar, [facility] [address] [place] [id number] [place] [address] 20036- 2018 Mar, Encounter for Depo-Provera contraception Z30.42 [facility] [address] [place] [id number] [place] [address] 67607- 7140 February, [facility] [address] [place] [id number] [place] [address] 56993- 2629 February, [place] [address] [place] [id number] [place] [address] 44098- 7370 February, Chronic pain G89.29 ; Essential hypertension I10 ; Type 2 diabetes mellitus without complication E11.9 ; HSV (herpes simplex virus) infection B00.9 ; Anxiety F41.9 ; Hypersomnia G47.10 ; Tobacco abuse Z72.0 ; Hand pain, left M79.642 ; Hand pain, right M79.641 ; Left foot pain M79.672 and Heart palpitations R00.2 [place] [address] 18741- 2493 Jan, [place] [address] 01216- 3095 Jan, [place] [address] 75492- 6714 Jan, [place] [address] 20125- 1370 Jan, [place] [address] 94336- 1204 Jan, Upper respiratory infection J06.9 and Type 2 diabetes mellitus without complication E11.9 [place] [address] [place] [id number] [place] [address] 25805- 8004 Dec, [place] [address] 88249- 4671 Dec, Chronic pain G89.29 ; Essential hypertension I10 ; Type 2 diabetes mellitus without complication E11.9 ; HSV (herpes simplex virus) infection B00.9 ; Anxiety F41.9 ; Upper respiratory infection J06.9 ; Hypersomnia G47.10 and Tobacco abuse Z72.0 [place] [address] 77312- 4521 Dec, Encounter for Depo-Provera contraception Z30.42 [place] [address] 99073- 3405 Dec, [place] [address] [place] [id number] [place] [address] 73847- 2739 Dec, Chronic pain G89.29 ; Sinusitis J32.9 ; Snoring R06.83 and Daytime hypersomnia G47.19 [place] [address] [place] [id number] [place] [address] 50334- 6200 Nov, HSV (herpes simplex virus) infection B00.9 ; Encounter for Papanicolaou smear for cervical cancer screening Z12.4 ; Screening for STD sexually transmitted disease Z11.3 and Bartholin's gland cyst N75.0 [place] [address] 50628- 0153 Nov, [place] [address] 44461- 6096 Nov, [place] [address] 39498- 3798 Nov, Essential hypertension I10 ; Type 2 diabetes mellitus without complication E11.9 ; HSV (herpes simplex virus) infection B00.9 ; Spinal stenosis, lumbar region M48.06 and Vaginal yeast infection B37.3 [place] [address] [place] [id number] [place] [address] 49227- 9333 Nov, [place] [address] [place] [id number] [place] [address] 19352- 3448 Nov, [place] [address] [place] [id number] [place] [address] 10449- 1601 Oct, [place] [address] [place] [id number] [place] [address] 50936- 0816 Oct, HSV (herpes simplex virus) infection B00.9 ; Yeast infection B37.9 ; Change in bowel habit R19.4 ; Nausea & vomiting R11.2 and Gastroesophageal reflux disease without esophagitis K21.9 [place] [address] [place] [id number] [place] [address] 66181- 9186 Oct, [address] 75511- 5756 Oct, Type 2 diabetes mellitus without complication E11.9 ; Essential hypertension I10 and Acute maxillary sinusitis, recurrence not specified J01.[address] 66470- 3876 Oct, [address] 38734- 3325 Oct, [address] 95671- 0651 Oct, Exposure to head lice Z20.7 ; Blood glucose abnormal R73.09 ; Boil of buttock L02.32 and Type 2 diabetes mellitus without complication E11.[address] 87802- 8750 Oct, [address] 83488- 7862 Sep, [address] 74234- 9107 Sep, [address] 12642- 0884 Aug, Encounter for Depo-Provera contraception Z30.[address] 13973- 7445 Aug, Anxiety F41.9 ; Spinal stenosis, lumbar region M48.06 ; Radiculopathy of lumbar region M54.16 ; Asthma J45.909 ; GERD (gastroesophageal reflux disease) K21.9 ; Essential hypertension I10 and Long-term use of high- risk medication Z79.[address] 55805- 3783 Jul, [address] 37739- 7137 Jun, Hemorrhoid 455.[address] [id number] [place] [address]- 9381 Jun, [place] [address] 13933- 7892 Jun, Anxiety 300.00 ; Asthma 493.90 ; Hyperhidrosis 705.21 ; Chest discomfort 786.59 and Upper respiratory infection 465.[address] 06931- 8218 May, Encounter for Depo-Provera contraception V25.[address] 96378- 9927 May, [address] 58165- 8932 May, [address] 47684- 7396 May, Spinal stenosis of lumbar region with radiculopathy 724.02 ; Bulging of intervertebral disc between L4 and L5 722.10 ; GERD ( gastroesophageal reflux disease) 530.81 ; Chronic pain 338.29 ; Declining mobility 799.89 and Epigastric pain 789.[address] 69986- 2492 Apr, [address] 49226- 0892 Apr, Nausea 787.02 and Heart burn 787.[address] 99146- 4143 Mar, Lumbago 724.2 ; Vitamin D deficiency 268.9 ; Anxiety 300.00 ; Allergic rhinitis 477.9 and Contraceptive surveillance V25.[address] 57772- 7958 February, 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 ; Chronic pain 338.29 and Vaginal discharge 623.5 [address] [place] [address]- 8553 February, [facility] [place] [facility] [address] [id number] [place] [address]- 9539 February, [facility] [place] [facility] [address] [id number] [place] [address]- 1096 Jan, [facility] [place] [facility] [address] [id number] [place] [address]- 0570 Jan, [facility] [place] [facility] [address] [id number] [place] [address]- 8323 Dec, [facility] [place] [facility] [address] [id number] [place] [address]- 2374 Dec, [facility] [place] [facility] [address] [id number] [place] [address]- 6850 Dec, [facility] [place] [facility] [address] [id number] [place] [address]- 2985 Dec, [facility] [place] [facility] [address] [id number] [place] [address]- 0705 Dec, [facility] [place] [facility] [address] [id number] [place] [address]- 9512 Dec, [facility] [place] [facility] [address] [id number] [place] [address]- 8010 Dec, [facility] [place] [facility] [address] [id number] [place] [address]- 4239 Dec, [facility] [place] [facility] [address] [id number] [place] [address]- 1380 Dec, [facility] [place] [facility] [address] [id number] [place] [address]- 2325 Dec, [facility] [place] [facility] [address] [id number] [place] [address]- 3456 Dec, [facility] [place] [facility] [address] [id number] [place] 1461 Dec, [facility] [place] [facility] [address] [id number] [place] [address] 2541 Nov, 2014 [facility] [place] [facility] [address] [id number] [place] [address] 2546 Nov, 2014 [facility] [place] [facility] [address] [id number] [place] [address] 2546 24 Nov, 2014 [facility] [place] [facility] [address] [id number] [place] [address] 2546 24 Nov, 2014 [facility] [place] [facility] [address] [id number] [place] [address] 2545 Nov, 2014 [facility] [place] [facility] [address] [id number] [place] [address] 2546 23 Nov, 2014 [facility] [place] [facility] [address] [facility] [id number] [place] [address]- 2546 16 Nov, 2014 [facility] [place] [facility] [address] [id number] [place] [address]- 2547 16 Nov, 2014 [facility] [place] [facility] [address] [id number] [place] [address]- 8076 13 Nov, 2014 [facility] [place] [facility] [address] [facility] [id number] [place] [address] 13 Nov, 2014 [facility] [place] [facility] [address] [facility] [id number] [place] [address] 13 Nov, 2014 [facility] [place] [facility] [address] [id number] [place] [id number] 13 Nov, 2014 [facility] [place] [facility] [address] [id number] [place] [address] 13 Nov, 2014 [facility] [place] [facility] [address] [id number] [place] [address] 13 Nov, 2014 [facility] [place] [facility] [address] [facility] [id number] [place] [address] 13 Nov, 2014 [facility] [place] [facility] [address] [id number] [place] [address] 13 Nov, 2014 [facility] [place] [facility] [address] [id number] [place] [address] Nov, 2014 [facility] [place] [facility] [address] [id number] [place] [address] Nov, 2014 [facility] [place] [facility] [address] [id number] [place] [address] Nov, 2014 [facility] [place] [facility] [address] [id number] [place] [address] Nov, 2014 [facility] [place] [facility] [address] [id number] [place] [address] Nov, 2014 [facility] [place] [facility] [address] [facility] [id number] [place] [address] Nov, 2014 [facility] [place] [facility] [address] [facility] [id number] [place] [address] Nov, 2014 [facility] [place] [facility] [address] [id number] [place] [address] Oct, [facility] [place] [facility] [address] [facility] [id number] [place] [address] Oct, [facility] [place] [facility] [address] [facility] [id number] [place] [address] Oct, [facility] [place] [facility] [address] [id number], [place] [address] Oct, [facility] [place] [facility] [address] [id number] [place] [address] 2395 Oct, [facility] [place] [facility] [address] [id number] [place] [address] 3886 Oct, [facility] [place] [facility] [address] [id number] [place] [address]- 3336 Oct, [facility] [place] [facility] [address] [id number], [place] [address] 0[address] Oct, [facility] [place] [facility] [address] [id number] [place] [address]- 9199 Oct, [facility] [place] [facility] [address] [id number] [place] [address]- 8648 Oct, [facility] [place] [facility] [address] [id number] [place] [address] 9392 Oct, [facility] [place] [facility] [address] [id number] [place] [address]- 0620 Oct, [facility] [place] [facility] [address] [id number] [place] [address]- 1011 Oct, [facility] [place] [facility] [address] [id number] [place] [address]- 6731 Oct, [facility] [place] [facility] [address] [id number] [place] [address]- 8660 Oct, [facility] [place] [facility] [address] [id number] [place] [address]- 1393 Oct, [facility] [place] [facility] [address] [id number] [place] [address]- 4127 Oct, [facility] [place] [facility] [address] [id number] [place] [address]- 2268 Oct, [facility] [place] [facility] [address] [id number] [place] [address]- 2408 Oct, [facility] [place] [facility] [address] [id number] [place] [address]- 0618 Oct, [facility] [place] [facility] [address] [id number] [place] [address]- 7684 Oct, [facility] [place] [facility] [address] [id number] [place] [address]- 5006 Sep, [facility] [place] [facility] [address] [id number] [place] [address]- 8735 Sep, [facility] [place] [facility] [address] [id number] [place] [address]- 6348 18 Sep, 2014 [facility] [place] [facility] [address] [id number] [place] [address]- 7996 18 Sep, 2014 [facility] [place] [facility] [address] [id number] [place] [address]- 8096 17 Sep, 2014 [facility] [place] [facility] [address] [id number] [place] [address]- 3506 17 Sep, 2014 [facility] [place] [facility] [address] [id number] [place] [address]- 8021 15 Sep, 2014 [facility] [place] [facility] [address] [id number] [place] [address]- 3427 15 Sep, 2014 [facility] [place] [facility] [address] [id number] [place] [address]- 0194 12 Sep, 2014 [facility] [place] [facility] [address] [id number] [place] [address]- 8218 12 Sep, 2014 [facility] [place] [facility] [address] [id number] [place] [address]- 6301 11 Sep, 2014 [facility] [place] [facility] [address] [id number] [place] [address]- 7080 11 Sep, 2014 [facility] [place] [facility] [address] [id number] [place] [address]- 9971 11 Sep, 2014 [facility] [place] [facility] [address] [id number] [place] [address]- 8053 11 Sep, 2014 [facility] [place] [facility] [address] [id number] [place] [address]- 4095 11 Sep, 2014 [facility] [place] [facility] [address] [id number] [place] [address]- 9366 11 Sep, 2014 [facility] [place] [facility] [address] [id number] [place] [address]- 1646 10 Sep, 2014 [facility] [place] [facility] [address] [id number] [place] [address]- 0818 Sep, [facility] [place] [facility] [address] [id number] [place] [address]- 4445 Sep, [facility] [place] [facility] [address] [id number] [place] [address]- 2529 Sep, [facility] [place] [facility] [address] [id number] [place] [address]- 1354 Aug, [facility] [place] [facility] [address] [id number] [place] [address]- 4486 Aug, [facility] [place] [facility] [address] [id number] [place] [address]- 1366 Aug, [facility] [place] [facility] [address] [id number] [place] [address]- 6768 Aug, [facility] [place] [facility] [address] [id number] [place] [address]- 8748 Aug, [facility] [place] [facility] [address] [id number] [place] [address]- 8478 Aug, [facility] [place] [facility] [address] [id number] [place] [address]- 3113 Aug, [facility] [place] [facility] [address] [id number] [place] [address]- 9626 Aug, [facility] [place] [facility] [address] [id number] [place] [address]- 5826 Aug, [facility] [place] [facility] [address] [id number], [place] [address]- 5[address] Jul, [facility] [place] [facility] [address] [id number] [place] [address]- 6072 Jul, [facility] [place] [facility] [address] [id number] [place] [address]- 2492 Jul, [facility] [place] [facility] [address] [id number] [place] [address]- 1639 Jul, [facility] [place] [facility] [address] [id number] [place] [address]- 6839 16 Jul, 2013 [facility] [place] [facility] [address] [id number] [place] [address]- 0957 16 Jul, 2013 [facility] [place] [facility] [address] [id number] [place] [address]- 5326 13 Jul, 2013 [facility] [place] [facility] [address] [id number] [place] [address]- 3646 13 Jul, 2013 [facility] [place] [facility] [address] [id number] [place] [address]- 5676 10 Jul, 2013 [facility] [place] [facility] [address] [id number] [place] [address]- 3021 10 Jul, 2013 [facility] [place] [facility] [address] [id number] [place] [address]- 5348 10 Jul, 2013 [facility] [place] [facility] [address] [id number] [place] [address]- 5940 10 Jul, 2013 [facility] [place] [facility] [address] [id number] [place] [address]- 8473 07 Jul, 2013 [facility] [place] [facility] [address] [id number] [place] [address]- 9104 07 Jul, 2013 [facility] [place] [facility] [address] [id number] [place] [address]- 4762 30 Jun, 2013 [facility] [place] [facility] [address] [id number] [place] [address]- 5773 30 Sep, 2013 [facility] [place] [facility] [address] [id number] [place] [address]- 2544 25 Sep, 2013 [facility] [place] [facility] [address] [id number] [place] [address] 2546 25 Sep, 2013 [facility] [place] [facility] [address] [id number] [place] [address]- 2546 25 Jun, 2013 [facility] [place] [facility] [address] [id number] [place] [address]- 0529 25 Jun, 2013 [facility] [place] [facility] [address] [id number] [place] [address]- 7017 24 Sep, 2013 [facility] [place] [facility] [address] [id number] [place] [address] 2546 24 Sep, 2013 [facility] [place] [facility] [address] [id number] [place] [address] 2542 22 Sep, 2013 [facility] [place] [facility] [address] [id number] [place] [address] 254 22 Sep, 2013 [facility] [place] [facility] [address] [id number] [place] [address] 2542 17 Sep, 2013 [facility] [place] [facility] [address] [id number] [place] [address]- 2234 17 Sep, 2013 [facility] [place] [facility] [address] [id number] [place] [address]- 7910 16 Jun, 2013 [facility] [place] [facility] [address] [id number] [place] [address]- 4533 16 Jun, 2013 [facility] [place] [facility] [address] [id number] [place] [address]- 7375 15 Jun, 2013 [facility] [place] [facility] [address] [id number] [place] [address]- 2545 15 Sep, 2013 [facility] [place] [facility] [address] [id number] [place] [address]- 9628 12 Jun, 2013 [facility] [place] [facility] [address] [id number] [place] [address]- 2544 12 Sep, 2013 [facility] [place] [facility] [address] [id number] [place] [address] 2548 11 Jun, 2013 [facility] [place] [facility] [address] [id number] [place] [address] 2546 11 Sep, 2013 [facility] [place] [facility] [address] [id number] [place] [address]- 2542 11 Sep, 2013 [facility] [place] [facility] [address] [id number] [place] [address]- 8240 Jun, [facility] [place] [facility] [address] [id number] [place] [address]- 7720 Jun, [facility] [place] [facility] [address] [id number] [place] [address]- 7444 Jun, [facility] [place] [facility] [address] [id number] [place] [address]- 5372 Jun, [facility] [place] [facility] [address] [id number] [place] [address]- 2323 Jun, [facility] [place] [facility] [address] [id number] [place] [address]- 7677 May, [facility] [place] [facility] [address] [id number] [place] [address]- 7566 May, [facility] [place] [facility] [address] [id number] [place] [address]- 3175 May, [facility] [place] [facility] [address] [id number] [place] [address]- 3730 May, [facility] [place] [facility] [address] [id number] [place] [address]- 1128 May, [facility] [place] [facility] [address] [id number] [place] [address]- 8681 May, [facility] [place] [facility] [address] [id number] [place] [address]- 3331 May, [facility] [place] [facility] [address] [id number] [place] [address]- 1600 May, [facility] [place] [facility] [address] [id number] [place] [address]- 2559 May, [facility] [place] [facility] [address] [id number] [place] [address]- 3804 May, [facility] [place] [facility] [address] [id number] [place] [address]- 8730 May, [facility] [place] [facility] [address] [id number] [place] [address]- 8963 May, [facility] [address] [id number] [place] [address]- 3737 May, [facility] [place] [facility] [address] [id number] [place] [address]- 5001 Apr, [facility] [place] [facility] [address] [id number] [place] [address]- 6798 Apr, [facility] [place] [facility] [address] [id number] [place] [address]- 9964 Apr, [facility] [place] [facility] [address] [id number] [place] [address]- 9579 Apr, [facility] [place] [facility] [address] [id number] [place] [address]- 4887 Apr, [facility] [address] [id number] [place] [address]- 1422 Mar, [facility] [place] [facility] [address] [id number] [place] [address]- 3367 Mar, [facility] [place] [facility] [address] [id number] [place] [address]- 0087 Mar, [facility] [address] [id number] [place] [address]- 8715 February, [facility] [place] [facility] [address] [id number] [place] [address]- 9468 February, [facility] [place] [facility] [address] [id number] [place] [address]- 2414 February, [facility] [place] [facility] [address] [id number] [place] [address]- 5534 February, [facility] [place] [facility] [address] [id number] [place] [address]- 8323 February, [facility] [place] [facility] [address] [id number] [place] [address]- 1288 February, [facility] [place] [facility] [address] [id number] [place] [address]- 9720 February, [facility] [place] [facility] [address] [id number] [place] [address]- 0167 February, [facility] [place] [facility] [address] [id number] [place] [address]- 8189 February, [facility] [place] [facility] [address] [id number] [place] [address]- 4279 Jan, [facility] [place] [facility] [address] [id number] [place] [address]- 0042 Jan, [facility] [place] [facility] [address] [id number] [place] [address]- 1650 Jan, [facility] [place] [facility] [address] [id number] [place] [address]- 3179 Jan, [facility] [place] [facility] [address] [id number] [place] [address]- 6569 Jan, [facility] [place] [facility] [address] [id number] [place] [address]- 8260 Dec, [facility] [place] [facility] [address] [id number] [place] [address]- 6433 Dec, [facility] [place] [facility] [address] [id number] [place] [address]- 1734 Dec, [facility] [place] [facility] [address] [id number], [place] [address]- 8806 Dec, [facility] [place] [facility] [address] [id number] [place] [address]- 7827 Dec, [facility] [place] [facility] [address] [id number] [place] [address]- 4921 Nov, [facility] [place] [facility] [address] [id number] [place] [address]- 0031 Nov, [facility] [place] [facility] [address] [id number], [place] [address]- 8848 Nov, [facility] [place] [facility] [address] [id number] [place] [address]- 8508 Nov, [facility] [place] [facility] [address] [id number] [place] [address]- 6823 Oct, [facility] [place] [facility] [address] [id number] [place] [address]- 2724 Oct, [facility] [place] [facility] [address] [id number] [place] [address]- 9688 Oct, [facility] [place] [facility] [address] [id number] [place] [address]- 3268 Oct, [facility] [place] [facility] [address] [id number] [place] [address]- 5281 Oct, [facility] [place] [facility] [address] [id number] [place] [address]- 9982 Oct, [facility] [place] [facility] [address] [id number] [place] [address]- 6447 Oct, [facility] [place] [facility] [address] [id number] [place] [address]- 0165 Oct, [facility] [place] [facility] [address] [facility] [id number] [place] [address]- 9863 Oct, [facility] [place] [facility] [address] [id number] [place] [address]- 8350 Oct, [facility] [place] [facility] [address] [id number], [place] [address]- 8827 Aug, [facility] [place] [facility] [address] [id number] [place] [address]- 7016 Aug, [facility] [place] [facility] [address] [facility] [id number] [place] [address]- 9671 Jul, [facility] [place] [facility] [address] [facility] [id number], [place] [address]- 0814 Jul, [facility] [place] [facility] [address] [id number] [place] [address]- 1448 Jul, [facility] [address] [id number] [place] [address]- 6653 Jul, [facility] [place] [facility] [address] [id number] [place] [address]- 3940 Jul, [facility] [place] [facility] [address] [id number] [place] [address]- 8225 Jul, [facility] [place] [facility] [address] [id number] [place] [address]- 4541 Apr, [facility] [place] [facility] [address] [id number] [place] [address]- 8459 Dec, [facility] [address] [id number] [place] [address]- 2595 Nov, [facility] [place] [facility] [address] [id number] [place] [address]- 2968 Nov, [facility] [address] [id number] [place] [address]- 3655 Nov, [facility] [address] [facility] [id number] [place] [address]- 2530 Oct, [facility] [address] [id number] [place] [address]- 6769 Sep, [facility] [place] [facility] [address] [id number] [place] [address]- 6955 Sep, [facility] [place] [facility] [address] [id number] [place] [address]- 3400 Sep, [facility] [place] [facility] [address] [id number] [place] [address]- 4297 Sep, [facility] [place] [facility] [address] [id number] [place] [address]- 2965 Aug, [facility] [place] [facility] [address] [id number] [place] [address]- 2003 Aug, [facility] [place] [facility] [address] [id number] [place] [address]- 1786 Jul, [facility] [place] [facility] [address] [id number] [place]146 Jul, [facility] [place] [facility] [address] [id number] [place] [address]- 8656 28 Jun, 2012 [facility] [place] [facility] [address] [id number] [place] [address]- 1129 26 Jun, 2012 [facility] [place] [facility] [address] [id number] [place] [address]- 4738 24 Jun, 2012 [facility] [place] [facility] [address] [id number] [place] [address]- 2532 24 Jun, 2012 [facility] [place] [facility] [address] [id number] [place] [address]- 4914 Jun, [facility] [place] [facility] [address] [id number] [place] [address]- 3862 31 Apr, 2012 [facility] [place] [facility] [address] [id number] [place] [address]- 8112 30 Apr, 2012 [facility] [place] [facility] [address] [id number] [place] [address]- 6862 Apr, [facility] [place] [facility] [address] [id number] [place] [address]- 8238 Mar, [facility] [place] [facility] [address] [id number] [place] [address]- 4573 Mar, [facility] [place] [facility] [address] [id number] [place] [address]- 5010 Mar, [facility] [place] [facility] [address] [id number] [place] 6577 February, [facility] [place] [facility] [address] [id number] [place] [address]- 5462 Jan, [facility] [place] [facility] [address] [id number] [place] [address]- 9568 Dec, [facility] [address] [id number] [place] [address]- 5202 Dec, [facility] [place] [facility] [address] [id number] [place] [address]- 9571 20 Dec, 2011 [facility] [address] [id number] [place] [address]- 1844 19 Dec, 2011 [facility] [place] [facility] [address] [id number] [place] [address]- 6177 Dec, [facility] [address] [id number] [place] [address]- 6833 14 Nov, 2011 [facility] [place] [facility] [address] [id number] [place] [address]- 6745 13 Nov, 2011 [facility] [place] [facility] [address] [id number] [place] [address]- 1006 Oct, [facility] [address] [id number] [place] [address]- 5037 Oct, [facility] [address] [id number] [place] [address]- 7974 Oct, [facility] [address] [id number] [place] [address] Sep, [facility] [place] [facility] [address] [id number] [place] [address] Aug, [facility] [place] [facility] [address] [id number] [place] [address] Aug, [facility] [place] [facility] [address] [id number] [place] [address] Jul, [facility] [place] [facility] [address] [id number] [place] [address] Jul, [facility] [place] [facility] [address] [id number] [place] [address] 19 Jul, 2011 [facility] [place] [facility] [address] [id number] [place] [address] 13 Jan, 2011 [facility] [place] [facility] [address] [id number] [place] [address] 29 Sep, 2010 [facility] [place] [facility] [address] [id number] [place] [address] 27 Sep, 2010 [facility] [place] [facility] [address] [id number] [place] [address] Sep, [facility] [place] [facility] [address] [id number] [place] [address] Sep, [facility] [place] [facility] [address] [id number] [place] [address] 06 Sep, 2010 [facility] [place] [facility] [address] [id number] [place] [address] Aug, [facility] [place] [facility] [address] [id number] [place] [address] 16 Aug, 2010 [facility] [place] [facility] [address] [id number] [place] [address] 08 Aug, 2010 [facility] [place] [facility] [address] [id number], [place] [address] Jul, [facility] [place] [facility] [address] [id number], [place] [address] Jul, [facility] [place] [facility] [address] [id number], [place] [address] Jul, [facility] [place] [facility] [address] [id number] [place] [address] 11 May, 2010 [facility] [place] [facility] [address] [id number], [place] [address] 13 Apr, 2010 [facility] [place] [facility] [address] [id number] [place] [address] 18 Dec, 2009 [facility] [place] [facility] [address] [facility] [id number] [place] [address] Sep, [facility] [address] [id number], [place] [address] Sep, [facility] [address] [id number], [place] [address] Aug, [facility] [address] [id number], [place] [address] Aug, [facility] [address] [id number], [place] [address] Jul, [facility] [address] [id number], [place] [address] Mar, IMMUNIZATIONS No Known Immunizations SOCIAL HISTORY Never Assessed REASON FOR VISIT Refill request PLAN OF CARE VITAL SIGNS MEDICATIONS Medication Instructions Dosage Frequency Start Date End Date Duration Status Amlodipine Besylate 5 mg Orally Once a day 1 tablet 24h 90 days Active Robaxin 500 mg Orally 3 times [...]
--- OUTSIDE RECORDS SUMMARY | 2018-10-08 20:14 | XMS REPORT ---
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 593793074 Problem Edema of both feet R60.0 Active 130193368 Problem Tobacco abuse Z72.0 Active 11971837 Problem Chronic migraine G43.709 Active 34791787 Problem Mixed hyperlipidemia E78.2 Active 178355081 Problem Spinal stenosis, lumbar region M48.06 Active 21708167 Problem Anxiety F41.9 Active 96139906 Problem Radiculopathy of lumbar region M54.16 Active 050789950 Problem Bulging lumbar disc M51.26 Active 448601137 Problem Asthma J45.909 Active 804843760 Problem Essential hypertension I10 Active 13409359 ALLERGIES No Information ENCOUNTERS Encounter Location Date Diagnosis [facility] [id number] [place] [address] 55775- 6996 Jan, [facility] [id number] [place] [address] 58655- 4032 Jan, 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 [facility] [id number] [place] [address] 54709- 6643 Jan, Encounter for Depo-Provera contraception Z30.42 [facility] [id number] [place] [address] 66283- 8252 Jan, [facility] [id number] [place] [address] 43023- 7556 Jan, Chronic pain G89.29 and Anxiety F41.9 [facility] [id number] [place] [address] 25821- 7897 Jan, [facility] [id number] [place] [address] 50375- 6790 Dec, [facility] [id number] [place] [address] 12230- 1486 14 Dec, 2017 Gastroesophageal reflux disease without esophagitis K21.9 and Anxiety F41.9 [facility] [id number] [place] [address] 19818- 8879 Dec, Essential hypertension I10 ; Mixed hyperlipidemia E78.2 ; Type 2 diabetes mellitus with diabetic neuropathy, unspecified E11.40 ; 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 ; Chronic pain G89.29 ; HSV (herpes simplex virus) infection B00.9 ; Anxiety F41.9 and Gastroesophageal reflux disease without esophagitis K21.9 [facility] [id number] [place] [address] 99059- 9026 Dec, Chronic pain G89.29 and Chronic migraine G43.709 [facility] [id number] [place] [address] 01770- 8139 Nov, [facility] [id number] [place] [address] 93462- 9627 Nov, Essential hypertension I10 and Chronic pain G89.29 [facility] [id number] [place] [address] 46175- 5510 05 Nov, 2017 Chronic pain G89.29 ; Essential hypertension I10 and Type 2 diabetes mellitus without complication E11.9 [facility] [id number] [place] [address] 46282- 4751 Oct, Chronic pain G89.29 [facility] [address] [place] [address]- 1663 Oct, [facility] [id number] [place] [address] 56626- 3178 Sep, Type 2 diabetes mellitus without complication E11.9 ; Essential hypertension I10 ; insulation manager (current) use of insulin Z79.4 ; Chronic migraine G43.709 ; Chronic pain G89.29 and Acute non-recurrent maxillary sinusitis J01.00 [place] [facility] [address] 77015- 9631 19 Sep, 2017 Encounter for Depo-Provera contraception Z30.42 [facility] [address] 16820- 6043 Sep, Chronic pain G89.29 and Radiculopathy of lumbar region M54.16 [facility] [id number] [place] [address] 97773- 1925 Sep, [facility] [address] 14440- 2421 Sep, [facility] [id number] [place] [address] 83989- 3583 Aug, Type 2 diabetes mellitus without complication E11.9 [facility] [id number] [place] [address] 42633- 7053 Aug, [facility] [id number] [place] [address] 50652- 3545 Aug, Radiculopathy of lumbar region M54.16 and Chronic pain G89.29 [facility] [id number] [place] [address] 54958- 4270 Aug, Type 2 diabetes mellitus without complication E11.9 [facility] [id number] [place] [address] 49998- 6422 Aug, Type 2 diabetes mellitus without complication E11.9 [facility] [id number] [place] [address] 37850- 1141 Jul, Type 2 diabetes mellitus without complication E11.9 [facility] [address] [address]- 3984 Jul, [facility] [id number] [place] [address] 12870- 1174 Jul, Chronic pain G89.29 [facility] [id number] [place] [address] 18308- 1284 Jul, [facility] [id number] [place] [address] 11372- 7696 Jul, [facility] [id number] [place] [address] 27314- 0941 Jul, Type 2 diabetes mellitus without complication E11.9 [facility] [id number] [place] [address] 47549- 5758 Jul, [facility] [id number] [place] [address] 53822- 7774 Jul, Type 2 diabetes mellitus without complication E11.9 [facility] [address] [address]- 0105 Jul, [facility] [id number] [place] [address] 43116- 1692 Jul, [facility] [address] [place] [address]- 2427 Jul, [facility] [id number] [place] [address] 58017- 1360 Jun, Type 2 diabetes mellitus without complication E11.9 [facility] [address] [address]- 4530 Jun, Chronic migraine G43.709 ; Type 2 diabetes mellitus without complication E11.9 ; Calculus of right kidney N20.0 ; Yeast dermatitis B37.2 and HSV (herpes simplex virus) infection B00.9 [facility] [id number] [place] [address] 41193- 0647 Jun, Type 2 diabetes mellitus without complication E11.9 [facility] [id number] [place] [address] 01351- 0240 Jun, [place] [facility] [address] 80196- 9989 Jun, Radiculopathy of lumbar region M54.16 and Chronic pain G89.29 [facility] [address] 26568- 6905 Jun, Encounter for Depo-Provera contraception Z30.42 [facility] [id number] [place] [address] 46494- 7958 Jun, Type 2 diabetes mellitus without complication E11.9 [facility] [facility] [address] 26765- 7009 Jun, [facility] [address] 44218 -1753 May, Acute nasopharyngitis (common cold) J00 [facility] [id number] [place] [address] 86222- 9595 May, Chronic pain G89.29 [facility] [id number] [place] [address] 93681- 4357 May, Headache following lumbar puncture G97.1 [facility] [id number] [place] [address] 74478- 9051 May, Radiculopathy of lumbar region M54.16 [facility] [id number] [place] [address] 73507- 7414 Apr, [facility] [address] 23169- 6293 Apr, Type 2 diabetes mellitus without complication E11.9 ; Chronic pain G89.29 ; Essential hypertension I10 ; Radiculopathy of lumbar region M54.16 ; Spinal stenosis, lumbar region M48.06 ; Gastroesophageal reflux disease without esophagitis K21.9 ; HSV (herpes simplex virus) infection B00.9 ; Mixed hyperlipidemia E78.2 ; Anxiety F41.9 and Asthma J45.909 [facility] [id number] [place] [address] 61199- 1989 Apr, Encounter for Depo-Provera contraception Z30.42 [facility] [id number] [place] [address] 53665- 5670 Apr, Chronic pain G89.29 and Anxiety F41.9 [facility] [facility] [address] 67548- 3705 Mar, [address] 71950- 0252 Mar, [facility] [address] 86389- 2515 Mar, Mixed hyperlipidemia E78.[address] 70135- 6301 Mar, Type 2 diabetes mellitus without complication E11.9 ; Chronic pain G89.29 ; Essential hypertension I10 ; Radiculopathy of lumbar region M54.16 ; Spinal stenosis, lumbar region M48.06 ; Gastroesophageal reflux disease without esophagitis K21.9 ; HSV (herpes simplex virus) infection B00.9 ; Mixed hyperlipidemia E78.2 and Anxiety F41.9 [place] [id number] [place] [address] 01215- 9401 Mar, [facility] [id number] [place] [address] 99664- 3206 Mar, [facility] [id number] [place] [address] 02811- 2195 Mar, [facility] [id number] [place] [address] 72759- 3343 February, Chronic pain G89.29 [facility] [id number] [place] [address] 69908- 6530 February, [facility] [facility] [address] [address]- 7573 Jan, Chronic pain G89.29 [facility] [id number] [place] [address] 79580- 6709 Jan, Type 2 diabetes mellitus without complication E11.9 [facility] [id number] [place] [address] 25950- 5720 Jan, [facility] [id number] [place] [address] 50131- 9994 Jan, [facility] [id number] [place] [address] 18398- 8824 Jan, [facility] [id number] [place] [address] 08947- 0054 Jan, Type 2 diabetes mellitus without complication [...] J01.00 and Encounter for Depo-Provera contraception Z30.42 [facility] [address] [place] [address] 37288- 6395 Dec, Chronic pain G89.29 [facility] [id number] [place] [address] 88625- 9847 Dec, Abnormal ankle brachial index (BERNARDINO) R68.89 [facility] [id number] [place] [address] 98233- 2326 Dec, [facility] [id number] [place] [address] 45944- 0705 Dec, Routine gynecological examination Z01.419 ; Chronic [...] virus) infection B00.9 and Allergic rhinitis 477.9 [place] [address] [place] [address] 47499- 5686 Nov, Chronic pain G89.29 [facility] [place] [id number] [place] [address] 40578- 2568 Nov, Chronic pain G89.29 ; Encounter for [...] mucoid otitis media of both ears H65.113 [facility] [id number] [place] [address] 40129- 1201 Oct, [facility] [place] [id number] [place] [address] 72521- 9573 Oct, Chronic pain G89.29 [facility] [place] [id number] [place] [address] 06558- 2361 Oct, Chronic pain G89.29 [facility] [place] [id number] [place] [address] 81472- 8401 Sep, Chronic pain G89.29 ; Type 2 diabetes mellitus without complication E11.9 ; Essential hypertension I10 ; Radiculopathy of lumbar region M54.16 ; Spinal stenosis, lumbar region M48.06 ; Gastroesophageal reflux disease without esophagitis K21.9 ; Encounter for surveillance of injectable contraceptive Z30.42 ; Bilateral cold feet R20.9 ; Pain of left foot M79.672 and Pain in right foot M79.671 [place] [id number] [place] [address] 96241- 3582 05 Sep, 2016 [facility] [id number] [place] [address] 08360- 0434 Aug, [facility] [id number] [place] [address] 01485- 9120 Aug, [facility] [address] 10799- 4197 Aug, Chronic pain G89.29 ; Type 2 diabetes mellitus without complication E11.9 ; Essential hypertension I10 ; Rash and nonspecific skin eruption R21 and Upper respiratory infection, acute J06.9 [place] [address] 91491- 2826 Aug, [place] [id number] [place] [address] 62552- 5087 Aug, [facility] [id number] [place] [address] 64579- 2535 Jul, [facility] [id number] [place] [address] 00576- 9662 Jul, Dysuria R30.0 ; Encounter for Depo-Provera contraception Z30.42 ; Herpes simplex B00.9 ; Nausea & vomiting R11.2 and Asthma J45.909 [place] [id number] [place] [address] 02045- 2001 Jun, Dysuria R30.0 [facility] [id number] [place] [address] 61062- 9549 19 Jun, 2016 Dysuria R30.0 [place] [id number] [place] [address] 62434- 2946 15 Jun, 2016 [facility] [id number] [place] [address] 55444- 4902 13 Jun, 2016 [facility] [id number] [place] [address] 18450- 7059 May, [place] [address] 95334- 3284 May, [place] [address] 44405- 0009 May, Chronic pain G89.29 ; Essential hypertension I10 ; Type 2 diabetes mellitus without complication E11.9 ; Edema of both feet R60.0 and Rash and nonspecific skin eruption R21 [address] 70473- 1302 Apr, [place] [address] 10052- 5723 Mar, Carpal tunnel syndrome, left upper limb G56.02 and Carpal tunnel syndrome, right upper limb G56.[address] 25364- 3580 Mar, [address] 83251- 6421 Mar, Encounter for Depo-Provera contraception Z30.[address] 89925- 8869 February, [address] 86042- 6885 February, [address] 55114- 2034 February, Chronic pain G89.29 ; Essential hypertension I10 ; Type 2 diabetes mellitus without complication E11.9 ; HSV (herpes simplex virus) infection B00.9 ; Anxiety F41.9 ; Hypersomnia G47.10 ; Tobacco abuse Z72.0 ; Hand pain, left M79.642 ; Hand pain, right M79.641 ; Left foot pain M79.672 and Heart palpitations R00.[address] 83622- 0168 Jan, [address] [place] [address]- 6212 Jan, [facility] [id number] [place] [address] 48977- 7210 Jan, [facility] [id number] [place] [address] 18736- 2040 Jan, [place] [address] 52877- 5553 Jan, Upper respiratory infection J06.9 and Type 2 diabetes mellitus without complication E11.9 [place] [address] 91231- 8847 Dec, [place] [address] 91486- 3726 Dec, Chronic pain G89.29 ; Essential hypertension I10 ; Type 2 diabetes mellitus without complication E11.9 ; HSV (herpes simplex virus) infection B00.9 ; Anxiety F41.9 ; Upper respiratory infection J06.9 ; Hypersomnia G47.10 and Tobacco abuse Z72.0 [place] [id number] [place] [address] 83543- 2494 Dec, Encounter for Depo-Provera contraception Z30.42 [place] [id number] [place] [address] 08194- 1159 Dec, [place] [id number] [place] [address] 27791- 6701 Dec, Chronic pain G89.29 ; Sinusitis J32.9 ; Snoring R06.83 and Daytime hypersomnia G47.19 [place] [id number] [place] [address] 07833- 3351 Nov, HSV (herpes simplex virus) infection B00.9 ; Encounter for Papanicolaou smear for cervical cancer screening Z12.4 ; Screening for STD sexually transmitted disease Z11.3 and Bartholin's gland cyst N75.0 [place] [id number] [place] [address] 80543- 3526 Nov, [facility] [address] [place] [address] 53932- 6885 Nov, [facility] [id number] [place] [address] 72928- 5379 Nov, Essential hypertension I10 ; Type 2 diabetes mellitus without complication E11.9 ; HSV (herpes simplex virus) infection B00.9 ; Spinal stenosis, lumbar region M48.06 and Vaginal yeast infection B37.3 [place] [id number] [place] [address] 16438- 6175 Nov, [place] [id number] [place] [address] 97930- 3778 Nov, [place] [id number] [place] [address] 27434- 6166 Oct, [place] [id number] [place] [address] 77073- 4367 Oct, HSV (herpes simplex virus) infection B00.9 ; Yeast infection B37.9 ; Change in bowel habit R19.4 ; Nausea & vomiting R11.2 and Gastroesophageal reflux disease without esophagitis K21.9 [place] [id number] [place] [address] 05091- 4677 Oct, [place] [id number] [place] [address] 23002- 7814 Oct, Type 2 diabetes mellitus without complication E11.9 ; Essential hypertension I10 and Acute maxillary sinusitis, recurrence not specified J01.00 [place] [id number] [place] [address] 23661- 2604 Oct, [place] [id number] [place] [address] 42577- 7246 Oct, [place] [id number] [place] [address] 93891- 0489 Oct, Exposure to head lice Z20.7 ; Blood glucose abnormal R73.09 ; Boil of buttock L02.32 and Type 2 diabetes mellitus without complication E11.9 [place] [id number] [place] [address] 17354- 2467 Oct, [place] [address] 19353- 0438 Sep, [place] [address] 44026- 4118 Sep, [place] [address] 58136- 3494 Aug, Encounter for Depo-Provera contraception Z30.[address] 69143- 1461 Aug, Anxiety F41.9 ; Spinal stenosis, lumbar region M48.06 ; Radiculopathy of lumbar region M54.16 ; Asthma J45.909 ; GERD (gastroesophageal reflux disease) K21.9 ; Essential hypertension I10 and Long-term use of high- risk medication Z79.899 [place] [address] 57912- 8894 Jul, [place] [address] 12124- 3903 Jun, Hemorrhoid 455.[address] 05778- 7060 Jun, [place] [address] 71027- 3448 Jun, Anxiety 300.00 ; Asthma 493.90 ; Hyperhidrosis 705.21 ; Chest discomfort 786.59 and Upper respiratory infection 465.9 [place] [address] 54791- 3302 May, Encounter for Depo-Provera contraception V25.[address] 92113- 4383 May, [id number] [place] [address] 12820- 6457 May, [place] [address] 45436- 1409 May, Spinal stenosis of lumbar region with radiculopathy 724.02 ; Bulging of intervertebral disc between L4 and L5 722.10 ; GERD ( gastroesophageal reflux disease) 530.81 ; Chronic pain 338.29 ; Declining mobility 799.89 and Epigastric pain 789.06 [place] [address] 03764- 4450 Apr, [place] [address] 95286- 7853 Apr, Nausea 787.02 and Heart burn 787.[address] 72122- 6355 Mar, Lumbago 724.2 ; Vitamin D deficiency 268.9 ; Anxiety 300.00 ; Allergic rhinitis 477.9 and Contraceptive surveillance V25.40 [place] [address] 83733- 1686 February, 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 ; Chronic pain 338.29 and Vaginal discharge 623.5 [place] [id number] [place] [address] 23110- 9216 February, [place] [id number] [place] [address] 80208- 5727 February, [place] [id number] [place] [address] 96285- 0000 Jan, [place] [address] 09003- 8189 Jan, [place] [id number] [place] [address] 56432- 4220 Dec, [place] [address] 72552- 1005 Dec, [facility] [place] [facility] [address] [id number] [place] [address]- 8744 Dec, [facility] [place] [facility] [address] [id number] [place] [address]- 7260 Dec, [facility] [place] [facility] [address] [id number] [place] [address]- 1743 Dec, [facility] [place] [facility] [address] [id number] [place] [address]- 5511 18 Dec, 2014 [facility] [place] [facility] [address] [id number] [place] [address]- 2104 Dec, [facility] [place] [facility] [address] [id number] [place] [address]- 3150 Dec, [facility] [place] [facility] [address] [id number] [place] [address]- 4212 Dec, [facility] [place] [facility] [address] [id number] [place] [address]- 4568 Dec, [facility] [place] [facility] [address] [id number] [place] [address]- 3502 Dec, [facility] [place] [facility] [address] [id number] [place] [address]- 5248 Dec, [facility] [place] [facility] [address] [id number] [place] [address]- 2427 Nov, [facility] [place] [facility] [address] [id number] [place] [address]- 0015 Nov, [facility] [place] [facility] [address] [id number] [place] [address]- 1561 Nov, [facility] [place] [facility] [address] [id number] [place] [address]- 0217 Nov, [facility] [place] [facility] [address] [id number] [place] [address]- 9719 Nov, [facility] [place] [facility] [address] [id number] [place] [address]- 9445 23 Nov, 2014 [facility] [place] [facility] [address] [id number] [place] [address]- 6466 16 Nov, 2014 [facility] [place] [facility] [address] [id number] [place] [address]- 2546 16 Nov, 2014 [facility] [place] [facility] [address] [id number] [place] [address]- 1123 13 Nov, 2014 [facility] [place] [facility] [address] [id number] [place] [address]- 2549 13 Nov, 2014 [facility] [place] [facility] [address] [id number] [place] [address]- 5758 13 Nov, 2014 [facility] [place] [facility] [address] [facility] [id number] [place] [address]- 2278 13 Nov, 2014 [facility] [place] [facility] [address] [id number] [place] [address]- 5389 13 Nov, 2014 [facility] [place] [facility] [address] [id number] [place] [address]- 7726 13 Nov, 2014 [facility] [place] [facility] [address] [facility] [id number] [place] [address]- 4668 13 Nov, 2014 [facility] [place] [facility] [address] [facility] [id number] [place] [address]- 6209 13 Nov, 2014 [facility] [place] [facility] [address] [id number] [place] [address] 10 Nov, 2014 [facility] [place] [facility] [address] [facility] [id number] [place] [address] 10 Nov, 2014 [facility] [place] [facility] [address] [id number] [place] [address] 09 Nov, 2014 [facility] [place] [facility] [address] [facility] [id number] [place] [address] 09 Nov, 2014 [facility] [place] [facility] [address] [id number] [place] [address] 06 Nov, 2014 [facility] [address] [id number] [place] [address] Nov, [facility] [place] [facility] [address] [id number] [place] [address] Nov, [facility] [place] [facility] [address] [id number] [place] [address] Oct, [facility] [place] [facility] [address] [id number] [place] [address] Oct, [facility] [place] [facility] [address] [id number] [place] [address] Oct, [facility] [place] [facility] [address] [id number] [place] [address] Oct, [facility] [place] [facility] [address] [id number] [place] [address] Oct, [facility] [place] [facility] [address] [id number] [place] [address] Oct, [facility] [place] [facility] [address] [id number] [place] [address] Oct, [facility] [place] [facility] [address] [id number] [place] [address] Oct, [facility] [place] [facility] [address] [id number] [place] [address] 4846 Oct, [facility] [place] [facility] [address] [id number] [place] [address] 9220 Oct, [facility] [place] [facility] [address] [id number] [place] [address] 9652 Oct, [facility] [place] [facility] [address] [id number] [place] [address] 2[address] Oct, [facility] [place] [facility] [address] [id number] [place] [address] 8545 Oct, [facility] [place] [facility] [address] [id number] [place] [address]- 4342 15 Oct, 2014 [facility] [place] [facility] [address] [id number] [place] [address] 0643 Oct, [facility] [place] [facility] [address] [id number] [place] [address] 7616 15 Oct, 2014 [facility] [place] [facility] [address] [id number] [place] [address] 0887 Oct, [facility] [place] [facility] [address] [id number] [place] [address] 6329 Oct, [facility] [place] [facility] [address] [id number] [place] [address] 6911 Oct, [facility] [place] [facility] [address] [id number] [place] [address]- 2861 Oct, [facility] [place] [facility] [address] [id number] [place] [address]- 5274 Oct, [facility] [place] [facility] [address] [id number] [place] [address]- 8375 29 Sep, 2014 [facility] [place] [facility] [address] [id number] [place] [address]- 5446 29 Sep, 2014 [facility] [place] [facility] [address] [id number] [place] [address]- 4207 18 Sep, 2014 [facility] [place] [facility] [address] [id number], [place] [address]- 7017 18 Sep, 2014 [facility] [place] [facility] [address] [id number] [place] [address]- 9578 17 Sep, 2014 [facility] [place] [facility] [address] [id number] [place] [address]- 0618 17 Sep, 2014 [facility] [place] [facility] [address] [id number] [place] [address]- 0255 15 Sep, 2014 [facility] [place] [facility] [address] [id number], [place] [address] 8237 15 Sep, 2014 [facility] [place] [facility] [address] [id number] [place] [address]- 8400 Sep, [facility] [place] [facility] [address] [id number] [place] [address]- 6459 Sep, [facility] [place] [facility] [address] [facility] [id number] [place] [address]- 9091 Sep, [facility] [place] [facility] [address] [id number] [place] [address]- 8234 Sep, [facility] [place] [facility] [address] [id number] [place] [address]- 3460 Sep, [facility] [place] [facility] [address] [id number] [place] [address]- 3715 Sep, [facility] [place] [facility] [address] [facility] [id number] [place] [address]- 1235 Sep, [facility] [place] [facility] [address] [id number] [place] [address]- 2162 Sep, [facility] [place] [facility] [address] [id number] [place] [address]- 3927 Sep, [facility] [place] [facility] [address] [facility] [id number] [place] [address]- 5244 Sep, [facility] [place] [facility] [address] [id number] [place] [address]- 4485 Sep, [facility] [place] [facility] [address] [id number] [place] [address]- 7515 Sep, [facility] [place] [facility] [address] [id number] [place] [address]- 7389 Aug, [facility] [place] [facility] [address] [id number] [place] [address]- 9483 Aug, [facility] [place] [facility] [address] [facility] [id number] [place] [address]- 0707 Aug, [facility] [place] [facility] [address] [id number] [place] [address] 1942 Aug, [facility] [place] [facility] [address] [id number] [place] [address]- 3752 Aug, [facility] [place] [facility] [address] [id number] [place] [address]- 3682 Aug, [facility] [place] [facility] [address] [id number] [place] [address]- 4029 Aug, [facility] [place] [facility] [address] [id number] [place] [address]- 1906 Aug, [facility] [place] [facility] [address] [id number] [place] [address]- 7074 Aug, [facility] [place] [facility] [address] [id number] [place] [address]- 1269 Jul, [facility] [place] [facility] [address] [id number] [place] [address]- 8286 Jul, [facility] [place] [facility] [address] [id number] [place] [address]- 5055 Jul, [facility] [place] [facility] [address] [id number] [place] [address]- 6370 Jul, [facility] [place] [facility] [address] [id number] [place] [address]- 6444 Jul, [facility] [place] [facility] [address] [id number] [place] [address]- 8460 16 Jul, 2014 [facility] [place] [facility] [address] [id number] [place] [address]- 4491 Jul, [facility] [place] [facility] [address] [id number] [place] [address]- 2319 13 Jul, 2014 [facility] [place] [facility] [address] [id number] [place] [address]- 2501 10 Jul, 2014 [facility] [place] [facility] [address] [id number] [place] [address]- 0564 Jul, [facility] [place] [facility] [address] [id number] [place] [address]- 9674 10 Jul, 2014 [facility] [place] [facility] [address] [id number] [place] [address]- 4400 10 Jul, 2014 [facility] [place] [facility] [address] [id number] [place] [address]- 8206 Jul, [facility] [place] [facility] [address] [id number] [place] [address]- 3133 07 Jul, 2014 [facility] [place] [facility] [address] [id number] [place] [address]- 4006 30 Jun, 2013 [facility] [place] [facility] [address] [id number] [place] [address]- 7164 30 Jun, 2013 [facility] [place] [facility] [address] [id number] [place] [address]- 2358 25 Jun, 2013 [facility] [place] [facility] [address] [id number] [place] [address]- 3782 25 Jun, 2013 [facility] [place] [facility] [address] [id number] [place] [address]- 2009 25 Jun, 2013 [facility] [place] [facility] [address] [id number] [place] [address]- 1996 25 Jun, 2013 [facility] [place] [facility] [address] [id number], [place] [address]- 2548 24 Sep, 2013 [facility] [place] [facility] [address] [id number], [place] [address]- 2548 24 Sep, 2013 [facility] [place] [facility] [address] [id number] [place] [address]- 254 22 Sep, 2013 [facility] [place] [facility] [address] [id number] [place] [address]- 2542 22 Sep, 2013 [facility] [place] [facility] [address] [id number] [place] [address]- 2548 17 Sep, 2013 [facility] [place] [facility] [address] [id number] [place] [address]- 8816 17 Sep, 2013 [facility] [place] [facility] [address] [id number] [place] [address] 2546 16 Sep, 2013 [facility] [place] [facility] [address] [id number] [place] [address] 2546 16 Sep, 2013 [facility] [place] [facility] [address] [id number] [place] [address] 2546 15 Jun, 2013 [facility] [place] [facility] [address] [id number] [place] [address] 2546 15 Jun, 2013 [facility] [place] [facility] [address] [id number] [place] [address]- 4362 12 Jun, 2013 [facility] [place] [facility] [address] [id number] [place] [address] 2543 12 Jun, 2013 [facility] [place] [facility] [address] [id number] [place] [address]- 7187 11 Jun, 2013 [facility] [place] [facility] [address] [id number] [place] [address] 2549 11 Jun, 2013 [facility] [place] [facility] [address] [id number] [place] [address] 2541 11 Jun, 2013 [facility] [place] [facility] [address] [id number] [place] [address] 2549 11 Jun, 2013 [facility] [place] [facility] [address] [id number] [place] [address] 2546 09 Jun, 2013 [facility] [place] [facility] [address] [id number] [place] [address]- 2549 09 Sep, 2013 [facility] [place] [facility] [address] [id number] [place] [address] 2541 03 Jun, 2013 [facility] [place] [facility] [address] [id number] [place] [address]- 2542 03 Jun, 2013 [facility] [place] [facility] [address] [id number] [place] [address]- 2540 May, [facility] [place] [facility] [address] [id number] [place] [address]- 9525 May, [facility] [place] [facility] [address] [id number] [place] [address]- 0733 May, [facility] [place] [facility] [address] [id number] [place] [address]- 5331 May, [facility] [place] [facility] [address] [id number] [place] [address]- 4002 May, [facility] [place] [facility] [address] [id number] [place] [address]- 8380 May, [facility] [place] [facility] [address] [id number] [place] [address]- 0831 May, [facility] [place] [facility] [address] [id number] [place] [address]- 2248 May, [facility] [place] [facility] [address] [id number] [place] [address]- 5818 May, [facility] [place] [facility] [address] [id number] [place] [address]- 9786 May, [facility] [place] [facility] [address] [id number] [place] [address]- 4028 May, [facility] [place] [facility] [address] [id number] [place] [address]- 7185 May, [facility] [place] [facility] [address] [id number] [place] [address]- 2871 May, [facility] [place] [facility] [address] [id number] [place] [address]- 9883 Apr, [facility] [place] [facility] [address] [id number] [place] [address]- 9317 Apr, [facility] [place] [facility] [address] [id number] [place] [address]- 9215 Apr, [facility] [place] [facility] [address] [id number] [place] [address]- 2546 Apr, [facility] [place] [facility] [address] [id number] [place] 1398 Apr, [facility] [place] [facility] [address] [id number] [place] [address]- 7440 Mar, [facility] [place] [facility] [address] [id number] [place] [address]- 7713 Mar, [facility] [place] [facility] [address] [id number] [place] [address]- 8102 Mar, [facility] [place] [facility] [address] [id number] [place] [address]- 8273 February, [facility] [place] [facility] [address] [id number] [place] [address]- 5345 February, [facility] [place] [facility] [address] [id number] [place] [address]- 8390 February, [facility] [place] [facility] [address] [id number] [place] [address]- 0005 February, [facility] [place] [facility] [address] [id number] [place] [address]- 9545 February, [facility] [place] [facility] [address] [id number] [place] [address]- 2400 February, [facility] [place] [facility] [address] [id number] [place] [address]- 0848 February, [facility] [place] [facility] [address] [id number] [place] [address]- 5117 February, [facility] [place] [facility] [address] [id number] [place] [address]- 9517 February, [facility] [place] [facility] [address] [id number] [place] [address]- 1961 Jan, [facility] [place] [facility] [address] [id number] [place] [address]- 8675 Jan, [facility] [place] [facility] [address] [id number] [place] [address]- 9001 Jan, [facility] [place] [facility] [address] [id number] [place] 8518 Jan, [facility] [place] [facility] [address] [id number] [place] Jan, [facility] [place] [facility] [address] [id number] [place] [address]- 6472 Dec, [facility] [place] [facility] [address] [id number] [place] [address]- 2189 Dec, [facility] [place] [facility] [address] [id number] [place] [address]- 9282 Dec, [facility] [place] [facility] [address] [id number] [place] [address]- 6294 Dec, [facility] [place] [facility] [address] [id number] [place] [address]- 2024 Dec, [facility] [place] [facility] [address] [id number] [place] [address]- 6389 Nov, [facility] [place] [facility] [address] [id number] [place] [address]- 9324 Nov, [facility] [place] [facility] [address] [id number] [place] [address]- 0900 Nov, [facility] [place] [facility] [address] [id number] [place] [address]- 3271 Nov, [facility] [place] [facility] [address] [id number] [place] [address]- 0912 Oct, [facility] [place] [facility] [address] [id number] [place] [address]- 2767 Oct, [facility] [place] [facility] [address] [id number] [place] [address]- 4097 Oct, [facility] [place] [facility] [address] [id number] [place] [address]- 8562 Oct, [facility] [place] [facility] [address] [id number] [place] [address]- 8661 Oct, [facility] [place] [facility] [address] [id number] [place] [address]- 9468 Oct, [facility] [place] [facility] [address] [id number] [place] [address]- 5157 Oct, [facility] [place] [facility] [address] [id number] [place] [address]- 9872 Oct, [facility] [place] [facility] [address] [id number] [place] [address]- 1294 Oct, [facility] [place] [facility] [address] [id number] [place] [address]- 0454 Oct, [facility] [place] [facility] [address] [id number] [place] [address]- 4986 Aug, [facility] [place] [facility] [address] [id number], [place] [address]- 3518 Aug, [facility] [place] [facility] [address] [id number], [place] [address]- 7267 Jul, [facility] [place] [facility] [address] [id number], [place] [address]- 1104 Jul, [facility] [place] [facility] [address] [id number], [place] [address]- 8222 Jul, [facility] [place] [facility] [address] [id number], [place] [address]- 9181 Jul, [facility] [place] [facility] [address] [id number], [place] [address]- 4771 Jul, [facility] [place] [facility] [address] [id number], [place] [address]- 4153 Jul, [facility] [place] [facility] [address] [id number], [place] [address]- 3963 Apr, [facility] [place] [facility] [address] [id number] [place] [address]- 3004 Dec, [facility] [address] [id number] [place] [address]- 1716 25 Nov, 2012 [facility] [address] [id number] [place] [address]886 12 Nov, 2012 [facility] [address] [id number] [place] [address]- 6716 07 Nov, 2012 [facility] [address] [id number] [place] [address]- 2687 16 Oct, 2012 [facility] [address] [id number] [place] 8936 19 Sep, 2012 [facility] [address] [id number] [place] [address]- 1862 Sep, [facility] [address] [id number] [place] [address]- 6129 Sep, [facility] [address] [id number] [place] [address]- 6152 19 Sep, 2012 [facility] [address] [facility] [id number] [place] [address]- 0782 Aug, [facility] [address] [facility] [id number] [place] [address]- 9775 13 Aug, 2012 [facility] [address] [id number] [place] [address]- 2996 Jul, [facility] [address] [id number] [place] [address]- 4837 Jul, [facility] [place] [facility] [address] [id number] [place] [address]- 6158 28 Jun, 2012 [facility] [place] [facility] [address] [id number] [place] [address]- 2546 26 Jun, 2012 [facility] [address] [id number] [place] [address]135 Jun, [facility] [place] [facility] [address] [id number] [place] [address]- 3559 Jun, [facility] [place] [facility] [address] [id number] [place] [address]- 6919 Jun, [facility] [place] [facility] [address] [id number] [place] [address]- 6507 Apr, [facility] [place] [facility] [address] [id number] [place] [address]- 4290 Apr, [facility] [place] [facility] [address] [id number] [place] [address]- 6758 Apr, [facility] [place] [facility] [address] [id number] [place] [address]- 6206 Mar, [facility] [place] [facility] [address] [id number] [place] [address]- 0477 Mar, [facility] [place] [facility] [address] [id number] [place] [address]- 6920 Mar, [facility] [place] [facility] [address] [id number] [place] [address]- 9521 February, [facility] [place] [facility] [address] [id number] [place] [address]- 7078 Jan, [facility] [place] [facility] [address] [id number] [place] [address]- 1609 Dec, [facility] [place] [facility] [address] [id number], [place] [address]- 6786 Dec, [facility] [place] [facility] [address] [id number] [place] [address]- 5515 Dec, [facility] [place] [facility] [address] [id number] [place] [address]- 6756 Dec, [facility] [place] [facility] [address] [id number] [place] [address]- 0050 Dec, [facility] [place] [facility] [address] [id number], [place] [address]- 0995 14 Nov, 2011 [facility] [address] [id number] [place] [address]- 8415 13 Nov, 2011 [facility] [address] [id number] [place] [address]- 7376 25 Oct, 2011 [facility] [address] [id number] [place] [address]- 5936 Oct, [facility] [address] [id number] [place] [address]- 0985 Oct, [facility] [address] [id number] [place] [address]- 8485 Sep, [facility] [address] [id number] [place] [address]- 7157 Aug, [facility] [address] [facility] [id number] [place] [address]- 0253 Aug, [facility] [address] [id number] [place] [address]- 6069 Jul, [facility] [address] [facility] [id number] [place] [address]- 3238 24 Jul, 2011 [facility] [address] [facility] [id number] [place] [address]- 7974 Jul, [facility] [address] [id number] [place] [address]- 0735 Jan, [facility] [place] [facility] [address] [id number], [place] [address]- 4088 Sep, [facility] [place] [facility] [address] [id number] [place] 7242 Sep, [facility] [place] [facility] [address] [facility] [id number] [place] [address] Sep, [facility] [place] [facility] [address] [facility] [id number] [place] [address] Sep, [facility] [place] [facility] [address] [id number] [place] [address] 06 Sep, 2010 [facility] [place] [facility] [address] [id number] [place] [address] 16 Aug, 2010 [facility] [place] [facility] [address] [id number] [place] [address] 16 Aug, 2010 [facility] [place] [facility] [address] [id number] [place] [address] 08 Aug, 2010 [facility] [place] [facility] [address] [id number] [place] [address] Jul, [facility] [place] [facility] [address] [id number] [place] [address] Jul, [facility] [place] [facility] [address] [id number] [place] [address] Jul, [facility] [place] [facility] [address] [id number] [place] [address] May, [facility] [place] [facility] [address] [id number] [place] [address] Apr, [facility] [place] [facility] [address] [id number] [place] [address] Dec, [facility] [place] [facility] [address] [id number] [place] [address] 17 Sep, 2009 [facility] [place] [facility] [address] [id number] [place] [address] 17 Sep, 2009 [facility] [place] [facility] [address] [id number] [place] [address] 11 Aug, 2009 [facility] [place] [facility] [address] [id number] [place] [address] Aug, [facility] [place] [facility] [address] [id number] [place] [address] 28 Jul, 2009 [facility] [place] [facility] [address] [id number] [place] [address] 10 Mar, 2009 IMMUNIZATIONS No Known Immunizations SOCIAL HISTORY Never Assessed REASON FOR VISIT Refill request PLAN OF CARE VITAL SIGNS MEDICATIONS Medication Instructions Dosage Frequency Start Date End Date Duration Status Nabumetone 500 mg Orally Twice a day 1 tablet 12h 7 Aug, 2017 90 days Active RESULTS No Results PROCEDURES [...]
--- OUTSIDE RECORDS SUMMARY | 2018-10-08 20:14 | XMS REPORT ---
Author Author JENNY WOLF [facility] Address [address] [place] [address] Care Team Providers [employer] Name Role Phone JENNY WOLF Unavailable PROBLEMS Type Condition ICD9-CM Code [id number] Code Onset Dates Condition Status SNOMED Code Problem Daytime hypersomnia G47.19 Active 16272558608970 Problem Tobacco abuse Z72.0 Active 08999846 Problem Snoring R06.83 Active 29477994 Problem Mixed hyperlipidemia E78.2 Active 834454836 Problem Edema of both feet R60.0 Active 112893223 Problem Hand pain, left M79.642 Active 41647455 Problem Hypersomnia G47.10 Active 02254291 Problem Hand pain, right M79.641 Active 98396274 Problem Heart palpitations R00.2 Active 33118635 Problem Anxiety F41.9 Active 10652760 Problem Essential hypertension I10 Active 20460200 Problem Spinal stenosis, lumbar region M48.06 Active 16434132 Problem Asthma J45.909 Active 346173045 Problem Type 2 diabetes mellitus without complication E11.9 Active 61048245 Problem Chronic pain G89.29 Active 05744241 Problem Bulging lumbar disc M51.26 Active 970190892 Problem Gastroesophageal reflux disease without esophagitis K21.9 Active 177666563 Problem Radiculopathy of lumbar region M54.16 Active 167566057 Problem HSV (herpes simplex virus) infection B00.9 Active 61304904 ALLERGIES Unknown Allergies SOCIAL HISTORY No smoking Hx information available PLAN OF CARE VITAL SIGNS MEDICATIONS Medication Instructions Dosage Frequency Start Date End Date Duration Status MS Contin 15 MG Orally every 12 hrs as needed must last 28 days 1 tablet Active Hydrocodone-Acetaminophen 5-325 MG Orally four times a day as needed for pain. Must last 28 days. 1 tablet Active Valacyclovir HCl 1 GM Orally every 24 hrs 1 tablet 30 Active Promethazine HCl 25 MG Orally every 6 hrs prn 1 tablet as needed 7 Active Clorazepate Dipotassium 15 MG Orally 3 times a day prn must last 28 days. 1 tablet Active RESULTS No Results PROCEDURES No Known procedures IMMUNIZATIONS No Known Immunizations
--- OUTSIDE RECORDS SUMMARY | 2018-10-08 20:15 | XMS REPORT ---
Author Author JENNY WOLF 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 416209054 Problem Edema of both feet R60.0 Active 407821392 Problem Tobacco abuse Z72.0 Active 28894856 Problem Chronic migraine G43.709 Active 84720679 Problem Mixed hyperlipidemia E78.2 Active 061361871 Problem Spinal stenosis, lumbar region M48.06 Active 83178959 Problem Anxiety F41.9 Active 59797631 Problem Radiculopathy of lumbar region M54.16 Active 112581229 Problem Bulging lumbar disc M51.26 Active 928344523 Problem Asthma J45.909 Active 754466286 Problem Essential hypertension I10 Active 86797647 ALLERGIES No Information ENCOUNTERS Encounter Location Date Diagnosis [facility] [id number] [address] February, [facility] [id number] [address] Jan, Chronic pain G89.29 [facility] [id number] [address] 1569 Jan, [facility] 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 Z79.4 [facility] [id number] [address] 2907 Jan, Encounter for Depo-Provera contraception Z30.42 [place] [address] 27859- 7626 Jan, [place] [address] 09536- 8733 Jan, Chronic pain G89.29 and Anxiety F41.9 [place] [address] 21817- 3973 Jan, [place] [address] 45800- 5484 Dec, [place] [address] 98481- 6695 Dec, Gastroesophageal reflux disease without esophagitis K21.9 and Anxiety F41.9 [place] [address] 26516- 3147 Dec, Essential hypertension I10 ; Mixed hyperlipidemia E78.2 ; Type 2 diabetes mellitus with diabetic neuropathy, unspecified E11.40 ; MCC 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 Z79.4 ; Chronic pain G89.29 ; HSV (herpes simplex virus) infection B00.9 ; Anxiety F41.9 and Gastroesophageal reflux disease without esophagitis K21.9 [place] [address] [address]60- 4121 07 Dec, 2017 Chronic pain G89.29 and Chronic migraine G43.709 [place] [address] 33672- 9539 Nov, [place] [address] 30870- 8346 Nov, Essential hypertension I10 and Chronic pain G89.29 [place] [address] 40902- 1405 05 Nov, 2017 Chronic pain G89.29 ; Essential hypertension I10 and Type 2 diabetes mellitus without complication E11.9 [place] [address] [place] [address]- 4332 Oct, Chronic pain G89.29 [place] [id number] [place] [address] 58134- 7505 Oct, [facility] [id number] [place] [address] 59421- 1979 Sep, Type 2 diabetes mellitus without complication E11.9 ; Essential hypertension I10 ; M[facility] (current) use of insulin Z79.4 ; Chronic migraine G43.709 ; Chronic pain G89.29 and Acute non-recurrent maxillary sinusitis J01.00 [place] [id number] [place] [address] 94710- 0680 19 Sep, 2017 Encounter for Depo-Provera contraception Z30.42 [place] [id number] [place] [address] 45802- 1131 13 Sep, 2017 Chronic pain G89.29 and Radiculopathy of lumbar region M54.16 [place] [id number] [place] [address] 58346- 2778 Sep, [place] [id number] [place] [address] 97682- 7329 Sep, [place] [id number] [place] [address] 58890- 8540 Aug, Type 2 diabetes mellitus without complication E11.9 [place] [id number] [place] [address] 07861- 0472 Aug, [place] [id number] [place] [address] 18569- 3364 Aug, Radiculopathy of lumbar region M54.16 and Chronic pain G89.29 [place] [id number] [place] [address] 21888- 8679 09 Aug, 2017 Type 2 diabetes mellitus without complication E11.9 [place] [id number] [place] [address] 74890- 5182 02 Aug, 2017 Type 2 diabetes mellitus without complication E11.9 [facility] [address] [address] 1143 Jul, Type 2 diabetes mellitus without complication E11.9 [facility] [address] [address]- 9730 Jul, [facility] [id number] [place] [address] 56291- 5861 Jul, Chronic pain G89.29 [facility] [id number] [place] [address] 34362- 2824 Jul, [facility] [id number] [place] [address] 38328- 5077 Jul, [facility] [id number] [place] [address] 63039- 4677 Jul, Type 2 diabetes mellitus without complication E11.9 [facility] [id number] [place] [address] 27256- 1815 Jul, [facility] [id number] [address] 1653 Jul, Type 2 diabetes mellitus without complication E11.9 [facility] [address] [address]- 2651 Jul, [facility] [address] [address]- 8391 Jul, [facility] [address] [address]- 1763 Jul, [facility] [address] [address]- 1157 Jun, Type 2 diabetes mellitus without complication E11.9 [facility] [address] [address]- 1266 Jun, Chronic migraine G43.709 ; Type 2 diabetes mellitus without complication E11.9 ; Calculus of right kidney N20.0 ; Yeast dermatitis B37.2 and HSV (herpes simplex virus) infection B00.9 [facility] [id number] [place] [address] 15680- 1451 Jun, Type 2 diabetes mellitus without complication E11.9 [facility] [id number] [place] [address] 12576- 2717 Jun, [facility] [address] 22454- 0538 Jun, Radiculopathy of lumbar region M54.16 and Chronic pain G89.29 [place] [address] 04287- 2516 Jun, Encounter for Depo-Provera contraception Z30.42 [place] [id number] [place] [address] 19002- 0131 Jun, Type 2 diabetes mellitus without complication E11.9 [place] [address] 13426- 2958 Jun, [facility] [address] 45261 -1049 May, Acute nasopharyngitis (common cold) J00 [place] [id number] [place] [address] 15785- 3446 May, Chronic pain G89.29 [place] [id number] [place] [address] 40310- 9320 May, Headache following lumbar puncture G97.1 [place] [address] 00206- 1802 May, Radiculopathy of lumbar region M54.16 [place] [address] 27407- 7067 Apr, [facility] [id number] [place] [address] 90444- 2565 Apr, Type 2 diabetes mellitus without complication E11.9 ; Chronic pain G89.29 ; Essential hypertension I10 ; Radiculopathy of lumbar region M54.16 ; Spinal stenosis, lumbar region M48.06 ; Gastroesophageal reflux disease without esophagitis K21.9 ; HSV (herpes simplex virus) infection B00.9 ; Mixed hyperlipidemia E78.2 ; Anxiety F41.9 and Asthma J45.909 [place] [id number] [place] [address] 92816- 1942 Apr, Encounter for Depo-Provera contraception Z30.42 [place] [address] 46517- 3781 Apr, Chronic pain G89.29 and Anxiety F41.9 [place] [address] 78628- 5085 Mar, [place] [address] 71291- 8826 Mar, [place] [address] 31381- 6610 Mar, Mixed hyperlipidemia E78.2 [place] [id number] [place] [address] 18446- 1390 Mar, Type 2 diabetes mellitus without complication E11.9 ; Chronic pain G89.29 ; Essential hypertension I10 ; Radiculopathy of lumbar region M54.16 ; Spinal stenosis, lumbar region M48.06 ; Gastroesophageal reflux disease without esophagitis K21.9 ; HSV (herpes simplex virus) infection B00.9 ; Mixed hyperlipidemia E78.2 and Anxiety F41.9 [place] [id number] [place] [address] 90752- 1081 Mar, [place] [id number] [place] [address] 62179- 4824 Mar, [place] [id number] [place] [address] 21866- 4511 Mar, [place] [id number] [place] [address] 86227- 3019 February, Chronic pain G89.29 [facility] [address] [address]- 4832 February, [facility] [id number] [place] [address] 71785- 1681 Jan, Chronic pain G89.29 [facility] [address] [address]- 3826 Jan, Type 2 diabetes mellitus without complication E11.9 [facility] [id number] [place] [address] 54848- 9216 Jan, [place] [id number] [place] [address] 51714- 6883 Jan, [facility] [id number] [place] [address] 87646- 3689 Jan, [place] [id number] [place] [address] 89632- 5694 Jan, Type 2 diabetes mellitus without complication [...] and Encounter for Depo-Provera contraception Z30.42 [facility] [address] [address]- 9557 28 Dec, 2016 Chronic pain G89.29 [facility] [id number] [place] [address] 84000- 1913 Dec, Abnormal ankle brachial index (BERNARDINO) R68.89 [place] [address] [address]- 5907 Dec, [facility] [id number] [place] [address] 68132- 2675 Dec, Routine gynecological examination Z01.419 ; Chronic [...] virus) infection B00.9 and Allergic rhinitis 477.9 [id number] [place] [address] 45855- 3912 Nov, Chronic pain G89.29 [id number] [place] [address] 12962- 8270 02 Nov, 2016 Chronic pain G89.29 ; [...] mucoid otitis media of both ears H65.113 [address] [id number] [place] [address] 52647- 1608 Oct, [address] [place] [id number] [place] [address] 85716- 4753 Oct, Chronic pain G89.29 [address] [place] [id number] [place] [address] 83283- 3168 Oct, Chronic pain G89.[address] 07918- 7471 Sep, Chronic pain G89.29 ; Type 2 diabetes mellitus without complication E11.9 ; Essential hypertension I10 ; Radiculopathy of lumbar region M54.16 ; Spinal stenosis, lumbar region M48.06 ; Gastroesophageal reflux disease without esophagitis K21.9 ; Encounter for surveillance of injectable contraceptive Z30.42 ; Bilateral cold feet R20.9 ; Pain of left foot M79.672 and Pain in right foot M79.671 [address] [place] [address] 00797- 8898 05 Sep, 2016 [address] [address] 64281- 6788 Aug, [place] [address] 58986- 0385 Aug, [place] [address] 18255- 5921 Aug, Chronic pain G89.29 ; Type 2 diabetes mellitus without complication E11.9 ; Essential hypertension I10 ; Rash and nonspecific skin eruption R21 and Upper respiratory infection, acute J06.9 [address] [place] [address] 04715- 9400 Aug, [address] [address] 08141- 1292 Aug, [address] [address] 49637- 7746 Jul, [address] [address] 90233- 3639 Jul, Dysuria R30.0 ; Encounter for Depo-Provera contraception Z30.42 ; Herpes simplex B00.9 ; Nausea & vomiting R11.2 and Asthma J45.909 [address] [place] [id number] [place] [address] 86795- 9062 Jun, Dysuria R30.0 [address] [place] [address] 55837- 6139 19 Jun, 2016 Dysuria R30.0 [address] [place] 72640- 7586 15 Jun, 2016 [address] [place] [address] 20618- 3924 Jun, [address] [place] [address] [place] [address] 13855- 8943 May, [address] [id number] [place] [address] 90741- 3951 May, [address] [place] [id number] [place] [address] 08841- 0214 May, Chronic pain G89.29 ; Essential hypertension I10 ; Type 2 diabetes mellitus without complication E11.9 ; Edema of both feet R60.0 and Rash and nonspecific skin eruption R21 [address] [id number] [place] [address] 77566- 5161 Apr, [address] [place] [id number] [place] [address] 34538- 9129 Mar, Carpal tunnel syndrome, left upper limb G56.02 and Carpal tunnel syndrome, right upper limb G56.01 [address] [id number] [place] [address] 78652- 6924 Mar, [address] [id number] [place] [address] 64172- 5247 Mar, Encounter for Depo-Provera contraception Z30.42 [address] [place] [id number] [place] [address] 13748- 8503 February, [address] [place] [id number] [place] [address] 73886- 2264 February, [address] [place] [id number] [place] [address] 80896- 2703 February, Chronic pain G89.29 ; Essential hypertension I10 ; Type 2 diabetes mellitus without complication E11.9 ; HSV (herpes simplex virus) infection B00.9 ; Anxiety F41.9 ; Hypersomnia G47.10 ; Tobacco abuse Z72.0 ; Hand pain, left M79.642 ; Hand pain, right M79.641 ; Left foot pain M79.672 and Heart palpitations R00.2 [address] [place] [address] 83561- 4617 Jan, [address] [place] [id number] [place] [address] 49316- 5481 Jan, [address] [place] [id number] [place] [address] 81231- 9267 Jan, [address] [place] [address] 94553- 5986 Jan, [address] [id number] [place] [address] 19957- 0320 Jan, Upper respiratory infection J06.9 and Type 2 diabetes mellitus without complication E11.9 [address] [place] [id number] [place] [address] 36432- 5869 Dec, [address] [id number] [place] [address] 17613- 6287 Dec, Chronic pain G89.29 ; Essential hypertension I10 ; Type 2 diabetes mellitus without complication E11.9 ; HSV (herpes simplex virus) infection B00.9 ; Anxiety F41.9 ; Upper respiratory infection J06.9 ; Hypersomnia G47.10 and Tobacco abuse Z72.0 [id number] [place] [address] 75071- 3644 Dec, Encounter for Depo-Provera contraception Z30.42 [address] [id number] [place] [address] 65140- 6017 Dec, [address] [id number] [place] [address] 86030- 3358 Dec, Chronic pain G89.29 ; Sinusitis J32.9 ; Snoring R06.83 and Daytime hypersomnia G47.19 [id number] [place] [address] 94151- 4390 Nov, HSV (herpes simplex virus) infection B00.9 ; Encounter for Papanicolaou smear for cervical cancer screening Z12.4 ; Screening for STD sexually transmitted disease Z11.3 and Bartholin's gland cyst N75.0 [facility] [id number] [place] [address] 70549- 8949 Nov, [facility] [id number] [place] [address] 66469- 8229 Nov, [facility] [id number] [place] [address] 27576- 6286 Nov, Essential hypertension I10 ; Type 2 diabetes mellitus without complication E11.9 ; HSV (herpes simplex virus) infection B00.9 ; Spinal stenosis, lumbar region M48.06 and Vaginal yeast infection B37.3 [address] [id number] [place] [address] 55564- 7395 Nov, [place] [id number] [place] [address] 13454- 1811 Nov, [place] [id number] [place] [address] 62593- 4898 Oct, [address] [id number] [place] [address] 48337- 7462 Oct, HSV (herpes simplex virus) infection B00.9 ; Yeast infection B37.9 ; Change in bowel habit R19.4 ; Nausea & vomiting R11.2 and Gastroesophageal reflux disease without esophagitis K21.9 [place] [id number] [place] [address] 79724- 0695 Oct, [facility] [id number] [place] [address] 66080- 5568 Oct, Type 2 diabetes mellitus without complication E11.9 ; Essential hypertension I10 and Acute maxillary sinusitis, recurrence not specified J01.00 [address] [id number] [place] [address] 48646- 5578 Oct, [facility] [id number] [place] [address] 62195- 7548 Oct, [facility] [address] 00209- 4640 Oct, Exposure to head lice Z20.7 ; Blood glucose abnormal R73.09 ; Boil of buttock L02.32 and Type 2 diabetes mellitus without complication E11.[address] 90806- 7157 Oct, [address] 34278- 6640 Sep, [address] 80145- 1919 Sep, [address] 33132- 5998 Aug, Encounter for Depo-Provera contraception Z30.[address] 85202- 7140 Aug, Anxiety F41.9 ; Spinal stenosis, lumbar region M48.06 ; Radiculopathy of lumbar region M54.16 ; Asthma J45.909 ; GERD (gastroesophageal reflux disease) K21.9 ; Essential hypertension I10 and Long-term use of high- risk medication Z79.[address] 88202- 4738 Jul, [address] 56139- 1511 Jun, Hemorrhoid 455.[address] 56481- 4967 Jun, [address] 61083- 9399 Jun, Anxiety 300.00 ; Asthma 493.90 ; Hyperhidrosis 705.21 ; Chest discomfort 786.59 and Upper respiratory infection 465.[address] 65096- 6153 May, Encounter for Depo-Provera contraception V25.49 [place] [id number] [place] [address] 27111- 3059 May, [place] [address] 77580- 1760 May, [place] [address] 84433- 9985 May, Spinal stenosis of lumbar region with radiculopathy 724.02 ; Bulging of intervertebral disc between L4 and L5 722.10 ; GERD ( gastroesophageal reflux disease) 530.81 ; Chronic pain 338.29 ; Declining mobility 799.89 and Epigastric pain 789.06 [place] [address] 26121- 7631 Apr, [place] [address] 50713- 9715 Apr, Nausea 787.02 and Heart burn 787.1 [place] [address] 55550- 7920 Mar, Lumbago 724.2 ; Vitamin D deficiency 268.9 ; Anxiety 300.00 ; Allergic rhinitis 477.9 and Contraceptive surveillance V25.40 [place] [id number] [place] [address] 05905- 1872 February, 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 ; Chronic pain 338.29 and Vaginal discharge 623.5 [place] [id number] [place] [address] 14518- 6261 February, [place] [id number] [place] [address] 56379- 5148 February, [place] [address] 44563- 4739 Jan, [place] [id number] [place] [address] 62802- 1286 Jan, [place] [address] 82405- 2030 Dec, [facility] [place] [facility] [address] [id number] [place] [address]- 9278 Dec, [facility] [place] [facility] [address] [id number] [place] [address]- 5878 Dec, [facility] [place] [facility] [address] [id number] [place] [address]- 4549 Dec, [facility] [place] [facility] [address] [id number] [place] [address]- 2453 Dec, [facility] [place] [facility] [address] [id number] [place] [address]- 0368 Dec, [facility] [place] [facility] [address] [id number] [place] [address]- 8026 Dec, [facility] [place] [facility] [address] [facility] [id number] [place] [address]- 0354 Dec, [facility] [place] [facility] [address] [id number] [place] [address]- 2197 Dec, [facility] [place] [facility] [address] [id number] [place] [address]- 4717 Dec, [facility] [place] [facility] [address] [facility] [id number] [place] [address]- 7321 Dec, [facility] [place] [facility] [address] [id number] [place] [address]- 4617 Dec, [facility] [place] [facility] [address] [id number] [place] [address]- 6656 Nov, [facility] [place] [facility] [address] [id number] [place] [address]- 6360 Nov, [facility] [place] [facility] [address] [id number] [place] [address]- 3170 Nov, [facility] [place] [facility] [address] [facility] [id number] [place] [address]- 3192 Nov, [facility] [place] [facility] [address] [id number] [place] [address] 2548 23 Nov, 2014 [facility] [place] [facility] [address] [id number] [place] [address] 2546 23 Nov, 2014 [facility] [place] [facility] [address] [id number] [place] [address] 2546 16 Nov, 2014 [facility] [place] [facility] [address] [id number] [place] [address] 2546 16 Nov, 2014 [facility] [place] [facility] [address] [id number] [place] [address] 2546 13 Nov, 2014 [facility] [place] [facility] [address] [id number] [place] [address] 2546 13 Nov, 2014 [facility] [place] [facility] [address] [facility] [id number] [place] [address]- 2546 13 Nov, 2014 [facility] [place] [facility] [address] [id number] [place] [address] 13 Nov, 2014 [facility] [place] [facility] [address] [id number] [place] [address] 13 Nov, 2014 [facility] [place] [facility] [address] [facility] [id number] [place] [address] 13 Nov, 2014 [facility] [place] [facility] [address] [facility] [id number] [place] [address] 13 Nov, 2014 [facility] [place] [facility] [address] [id number] [place] [address] 13 Nov, 2014 [facility] [place] [facility] [address] [id number] [place] [address] 10 Nov, 2014 [facility] [place] [facility] [address] [id number] [place] [address] 10 Nov, 2014 [facility] [place] [facility] [address] [facility] [id number] [place] [address] 09 Nov, 2014 [facility] [place] [facility] [address] [id number] [place] [address] Nov, 2014 [facility] [place] [facility] [address] [id number] [place] [address] Nov, 2014 [facility] [place] [facility] [address] [id number] [place] [address] Nov, 2014 [facility] [place] [facility] [address] [id number] [place] [address] Nov, [facility] [place] [facility] [address] [id number] [place] [address] Oct, [facility] [place] [facility] [address] [id number] [place] [address] Oct, [facility] [place] [facility] [address] [id number] [place] [address] Oct, [facility] [place] [facility] [address] [id number] [place] [address] Oct, [facility] [place] [facility] [address] [id number] [place] [address] Oct, [facility] [place] [facility] [address] [id number] [place] [address] Oct, [facility] [place] [facility] [address] [id number] [place] [address] Oct, [facility] [place] [facility] [address] [id number] [place] [address] Oct, [facility] [place] [facility] [address] [id number] [place] [address] 4[address] Oct, [facility] [place] [facility] [address] [id number] [place] [address] 7551 Oct, [facility] [place] [facility] [address] [id number] [place] [address] 6195 Oct, [facility] [place] [facility] [address] [id number] [place] [address] 9255 Oct, [facility] [place] [facility] [address] [id number] [place] [address]- 2908 Oct, [facility] [place] [facility] [address] [id number] [place] [address]- 5088 Oct, [facility] [place] [facility] [address] [id number] [place] [address]- 7346 Oct, [facility] [place] [facility] [address] [id number] [place] [address]- 5974 Oct, [facility] [place] [facility] [address] [id number] [place] [address]- 7446 Oct, [facility] [place] [facility] [address] [id number] [place] [address]- 4240 Oct, [facility] [place] [facility] [address] [id number] [place] [address] 5108 Oct, [facility] [place] [facility] [address] [id number] [place] [address]- 4600 Oct, [facility] [place] [facility] [address] [id number] [place] [address]- 8290 Oct, [facility] [place] [facility] [address] [id number] [place] [address]- 2037 Sep, [facility] [place] [facility] [address] [id number] [place] [address]- 2986 29 Sep, 2014 [facility] [place] [facility] [address] [id number] [address] 18 Sep, 2014 [facility] [place] [facility] [address] [id number] [place] [address]- 5178 18 Sep, 2014 [facility] [place] [facility] [address] [id number] [place] [address]- 0263 Sep, [facility] [place] [facility] [address] [id number] [place] [address]- 3913 Sep, [facility] [place] [facility] [address] [id number] [place] [address]- 9660 15 Sep, 2014 [facility] [address] [id number] [place] [address]- 8776 15 Sep, 2014 [facility] [place] [facility] [address] [id number] [place] [address]- 4306 12 Sep, 2014 [facility] [address] [id number] [place] [address]- 6037 12 Sep, 2014 [facility] [place] [facility] [address] [id number] [place] [address]- 9652 11 Sep, 2014 [facility] [place] [facility] [address] [id number] [place] [address]- 0425 Sep, [facility] [place] [facility] [address] [id number] [place] [address]- 0387 Sep, [facility] [address] [id number] [place] [address]- 5090 Sep, [facility] [place] [facility] [address] [id number] [place] [address]- 0865 Sep, [facility] [place] [facility] [address] [id number] [place] [address]- 9090 Sep, [facility] [address] [id number] [place] [address]- 9232 10 Sep, 2014 [facility] [place] [facility] [address] [id number] [place] [address]- 8770 Sep, [facility] [place] [facility] [address] [id number] [place] [address]- 3185 Sep, [facility] [place] [facility] [address] [id number] [place] [address]- 3201 Sep, [facility] [place] [facility] [address] [id number] [place] [address]- 1007 Aug, [facility] [place] [facility] [address] [id number] [place] [address]- 0102 Aug, [facility] [place] [facility] [address] [id number] [place] [address]- 4317 Aug, [facility] [place] [facility] [address] [id number] [place] [address]- 1055 Aug, [facility] [place] [facility] [address] [id number] [place] [address]- 1737 Aug, [facility] [place] [facility] [address] [id number] [place] [address]- 4582 Aug, [facility] [place] [facility] [address] [id number] [place] [address]- 6767 Aug, [facility] [place] [facility] [address] [id number] [place] [address]- 7455 Aug, [facility] [place] [facility] [address] [id number] [place] [address]- 3637 Aug, [facility] [place] [facility] [address] [id number] [place] [address]- 4332 Jul, [facility] [place] [facility] [address] [id number] [place] [address]- 3711 Jul, [facility] [place] [facility] [address] [id number] [place] [address]- 4060 Jul, [facility] [place] [facility] [address] [id number] [place] [address]- 6647 Jul, [facility] [place] [facility] [address] [id number] [address]- 0055 Jul, [facility] [place] [facility] [address] [id number] [place] [address]- 4047 Jul, [facility] [place] [facility] [address] [id number] [place] [address]- 0386 Jul, [facility] [place] [facility] [address] [id number] [place] [address]- 8128 Jul, [facility] [place] [facility] [address] [id number] [place] [address]- 4535 Jul, [facility] [place] [facility] [address] [id number] [place] [address]- 7817 10 Jul, 2014 [facility] [place] [facility] [address] [id number] [place] [address]- 2896 Jul, [facility] [place] [facility] [address] [id number] [place] [address]- 1841 Jul, [facility] [place] [facility] [address] [id number] [place] [address]- 1573 Jul, [facility] [place] [facility] [address] [id number] [place] [address]- 2619 Jul, [facility] [place] [facility] [address] [id number] [place] [address]- 3215 30 Jun, 2013 [facility] [place] [facility] [address] [id number] [place] [address]- 1479 30 Jun, 2013 [facility] [place] [facility] [address] [id number] [place] [address]- 2548 25 Jun, 2013 [facility] [place] [facility] [address] [id number] [place] [address] 254 25 Jun, 2013 [facility] [place] [facility] [address] [id number] [place] [address] 2540 25 Jun, 2013 [facility] [place] [facility] [address] [id number] [place] [address] 2549 25 Jun, 2013 [facility] [place] [facility] [address] [id number] [place] [address]- 2545 24 Jun, 2013 [facility] [place] [facility] [address] [id number] [place] [address] 2546 24 Jun, 2013 [facility] [place] [facility] [address] [id number] [place] [address]- 2540 22 Jun, 2013 [facility] [place] [facility] [address] [id number] [place] [address]- 2549 22 Jun, 2013 [facility] [place] [facility] [address] [id number] [place] [address]- 5441 17 Sep, 2013 [facility] [place] [facility] [address] [id number] [place] [address]- 5566 17 Sep, 2013 [facility] [place] [facility] [address] [id number] [place] [address]- 2546 16 Sep, 2013 [facility] [place] [facility] [address] [id number] [place] [address] 2546 16 Sep, 2013 [facility] [place] [facility] [address] [id number] [place] [address]- 2543 15 Sep, 2013 [facility] [place] [facility] [address] [id number] [place] [address]- 4251 15 Sep, 2013 [facility] [place] [facility] [address] [id number] [place] [address]- 2752 12 Sep, 2013 [facility] [place] [facility] [address] [id number] [place] [address]- 2549 12 Sep, 2013 [facility] [place] [facility] [address] [id number] [place] [address]- 2547 11 Sep, 2013 [facility] [place] [facility] [address] [id number] [place] [address] 2544 11 Sep, 2013 [facility] [place] [facility] [address] [id number] [place] [address]- 5808 11 Sep, 2013 [facility] [place] [facility] [address] [id number] [place] [address]- 2541 11 Sep, 2013 [facility] [place] [facility] [address] [id number] [place] [address] 2543 09 Sep, 2013 [facility] [place] [facility] [address] [id number] [place] [address] 2546 09 Sep, 2013 [facility] [place] [facility] [address] [id number] [place] [address]- 2546 03 Sep, 2013 [facility] [place] [facility] [address] [id number] [place] [address]- 2741 Jun, [facility] [place] [facility] [address] [id number] [place] [address]- 2170 May, [facility] [place] [facility] [address] [id number] [place] [address]- 5560 May, [facility] [place] [facility] [address] [id number] [place] [address]- 2625 May, [facility] [place] [facility] [address] [id number] [place] [address]- 2632 May, [facility] [place] [facility] [address] [id number] [place] [address]- 1681 May, [facility] [place] [facility] [address] [id number] [place] [address]- 7233 May, [facility] [place] [facility] [address] [id number] [place] [address]- 6545 May, [facility] [place] [facility] [address] [id number] [place] [address]- 3181 May, [facility] [place] [facility] [address] [id number] [place] [address]- 7644 May, [facility] [place] [facility] [address] [id number] [place] [address]- 5307 May, [facility] [place] [facility] [address] [id number] [place] [address]- 8580 May, [facility] [place] [facility] [address] [id number] [place] [address]- 4802 May, [facility] [place] [facility] [address] [id number] [place] [address]- 9763 May, [facility] [place] [facility] [address] [id number] [place] [address]- 9219 Apr, [facility] [place] [facility] [address] [id number] [place] [address]- 7302 Apr, [facility] [place] [facility] [address] [id number] [place] [address]- 6270 Apr, [facility] [place] [facility] [address] [id number] [place] [address]- 0141 Apr, [facility] [place] [facility] [address] [id number] [place] [address]- 9026 Apr, [facility] [place] [facility] [address] [id number] [place] [address]- 9481 Mar, [facility] [place] [facility] [address] [id number] [place] [address]- 1951 Mar, [facility] [place] [facility] [address] [id number] [place] [address]- 1585 Mar, [facility] [place] [facility] [address] [id number] [place] [address]- 0762 February, [facility] [place] [facility] [address] [id number] [place] [address]- 0857 February, [facility] [place] [facility] [address] [id number] [place] [address]- 8574 February, [facility] [place] [facility] [address] [id number] [place] [address]- 2919 February, [facility] [place] [facility] [address] [id number] [place] [address]- 2852 February, [facility] [place] [facility] [address] [id number] [place] [address]- 5120 February, [facility] [place] [facility] [address] [id number] [place] [address]- 8179 February, [facility] [place] [facility] [address] [id number] [place] [address]- 6729 February, [facility] [place] [facility] [address] [id number] [place] [address]- 1038 February, [facility] [place] [facility] [address] [id number] [place] [address]- 6926 Jan, [facility] [place] [facility] [address] [id number] [place] [address]- 8884 Jan, [facility] [place] [facility] [address] [id number] [place] [address]- 2163 Jan, [facility] [place] [facility] [address] [id number] [place] [address]- 1098 Jan, [facility] [place] [facility] [address] [id number] [place] [address]- 0662 Jan, [facility] [place] [facility] [address] [id number] [place] [address]- 3716 Dec, [facility] [place] [facility] [address] [id number] [place] [address]- 9847 Dec, [facility] [place] [facility] [address] [id number] [place] [address]- 7573 Dec, [facility] [place] [facility] [address] [id number] [place] [address]- 0340 Dec, [facility] [place] [facility] [address] [id number] [place] [address]- 0119 Dec, [facility] [place] [facility] [address] [id number] [place] [address]- 3266 Nov, [facility] [place] [facility] [address] [id number] [place] [address]- 5189 Nov, [facility] [place] [facility] [address] [id number] [place] [address]- 1242 Nov, [facility] [place] [facility] [address] [id number] [place] [address]- 7935 Nov, [facility] [place] [facility] [address] [id number] [place] [address]- 7284 Oct, [facility] [place] [facility] [address] [id number] [place] [address] Oct, [facility] [place] [facility] [address] [id number] [place] [address]- 9520 Oct, [facility] [place] [facility] [address] [id number] [place] [address]- 5765 Oct, [facility] [place] [facility] [address] [id number] [place] [address]- 6963 Oct, [facility] [place] [facility] [address] [id number] [place] [address]- 3310 Oct, [facility] [place] [facility] [address] [id number] [place] [address]- 4312 Oct, [facility] [place] [facility] [address] [id number] [place] [address]- 9734 Oct, [facility] [place] [facility] [address] [id number] [place] [address]- 9138 Oct, [facility] [place] [facility] [address] [id number] [place] [address]- 6051 Oct, [facility] [place] [facility] [address] [id number] [place] [address]- 8630 Aug, [facility] [place] [facility] [address] [id number] [place] [address]- 4877 Aug, [facility] [place] [facility] [address] [id number] [address]- 0196 Jul, [facility] [place] [facility] [address] [id number] [place] [address]- 4691 Jul, [facility] [place] [facility] [address] [id number] [place] [address]- 7052 Jul, [facility] [place] [facility] [address] [id number] [place] [address]- 9927 Jul, [facility] [place] [facility] [address] [id number] [place] [address]- 6618 Jul, [facility] [place] [facility] [address] [id number] [place] [address]- 3363 Jul, [facility] [place] [facility] [address] [id number] [place] [address]- 8079 Apr, [facility] [address] [id number] [place] [address]- 1727 Dec, [facility] [place] [facility] [address] [id number] [place] [address]- 0426 Nov, [facility] [place] [facility] [address] [id number] [place] [address]- 3216 Nov, [facility] [place] [facility] [address] [id number] [place] [address] 2544 Nov, [facility] [place] [facility] [address] [id number] [place] [address]- 8702 Oct, [facility] [place] [facility] [address] [id number] [place] [address]- 7922 Sep, [facility] [place] [facility] [address] [id number] [place] [address]- 4276 Sep, [facility] [place] [facility] [address] [id number] [place] [address]- 4690 Sep, [facility] [place] [facility] [address] [id number] [place] [address]- 5519 Sep, [facility] [place] [facility] [address] [id number] [place] [address]- 8886 Aug, [facility] [place] [facility] [address] [id number] [place] [address]- 0969 Aug, [facility] [place] [facility] [address] [id number] [place] [address]- 8777 Jul, [facility] [place] [facility] [address] [id number] [place] Jul, [facility] [place] [facility] [address] [id number] [place] [address] 2542 28 Jun, 2012 [facility] [place] [facility] [address] [id number] [place] [address]- 3245 26 Jun, 2012 [facility] [place] [facility] [address] [id number] [place] [address]- 1914 24 Jun, 2012 [facility] [place] [facility] [address] [id number] [place] [address]- 8016 24 Jun, 2012 [facility] [place] [facility] [address] [id number] [place] [address]- 6536 Jun, [facility] [place] [facility] [address] [id number] [place] [address]- 8844 31 Apr, 2012 [facility] [place] [facility] [address] [id number] [place] [address]- 5103 30 Apr, 2012 [facility] [place] [facility] [address] [id number] [place] [address]- 3513 Apr, [facility] [place] [facility] [address] [id number] [place] [address]- 6383 Mar, [facility] [place] [facility] [address] [id number] [place] [address]- 2299 Mar, [facility] [place] [facility] [address] [id number] [place] [address]- 7660 Mar, [facility] [place] [facility] [address] [id number] [place] [address]- 4135 February, [facility] [place] [facility] [address] [id number] [place] [address]- 3394 Jan, [facility] [place] [facility] [address] [id number] [place] [address]- 4591 Dec, [facility] [place] [facility] [address] [id number] [place] [address]- 7081 Dec, [facility] [place] [facility] [address] [id number] [place] [address]- 9064 Dec, [facility] [place] [facility] [address] [id number] [place] [address]- 8371 Dec, [facility] [place] [facility] [address] [id number] [place] [address]- 4442 12 Dec, 2011 [facility] [address] [id number] [place] [address]- 0666 14 Nov, 2011 [facility] [address] [id number] [place] [address]- 1306 13 Nov, 2011 [facility] [address] [id number] [place] [address]- 1209 Oct, [facility] [address] [id number] [place] [address]- 1134 Oct, [facility] [address] [id number] [place] [address], [place] [address]- 8620 Oct, [facility] [address] [id number] [place] [address]- 7069 Sep, [facility] [address] [id number] [place] [address]- 0345 Aug, [facility] [address] [id number] [place] [address]- 2153 Aug, [facility] [address] [id number] [place] [address]- 4884 28 Jul, 2011 [facility] [address] [id number] [place] [address]- 2670 24 Jul, 2011 [facility] [address] [id number] [place] [address]- 2540 19 Jul, 2011 [facility] [address] [id number] [place] [address]- 0037 13 Jan, 2011 [facility] [place] [facility] [address] [id number] [place] [address]- 1727 29 Sep, 2010 [facility] [place] [facility] [address] [id number] [place] [address]- 2541 27 Sep, 2010 [facility] [address] [id number] [id number] Sep, [facility] [place] [facility] [address] [id number] [place] [address] Sep, [facility] [place] [facility] [address] [id number] [place] [address] Sep, [facility] [place] [facility] [address] [id number] [place] [address] Aug, [facility] [place] [facility] [address] [id number] [place] [address] 16 Aug, 2010 [facility] [place] [facility] [address] [id number] [place] [address] 08 Aug, 2010 [facility] [place] [facility] [address] [id number] [place] [address] Jul, [facility] [place] [facility] [address] [id number] [place] [address] Jul, [facility] [place] [facility] [address] [id number] [place] [address] Jul, [facility] [place] [facility] [address] [id number] [place] [address] May, [facility] [place] [facility] [address] [id number] [place] [address] Apr, [facility] [place] [facility] [address] [id number] [place] [address] Dec, [facility] [place] [facility] [address] [id number] [place] [address] 17 Sep, 2009 [facility] [place] [facility] [address] [id number] [place] [address] 17 Sep, 2009 [facility] [place] [facility] [address] [id number] [place] [address] Aug, [facility] [place] [facility] [address] [id number] [place] [address] 11 Aug, 2009 [facility] [place] [facility] [address] [id number] [place] [address] Jul, [facility] [address] [facility] [id number] [place] [address] Mar, IMMUNIZATIONS No Known Immunizations SOCIAL HISTORY Never Assessed REASON FOR VISIT Controlled Med Refill PLAN OF CARE VITAL SIGNS MEDICATIONS Medication Instructions Dosage Frequency Start Date End Date Duration Status MS Contin 15 MG Orally every 12 hrs as needed must last 28 days 1 tablet Jun, Active Clorazepate Dipotassium 15 MG Orally 3 times a day prn must last 28 days. 1 tablet 28 Active Lyrica 150 MG Orally Three times a day 1 capsule 8h Active Hydrocodone-Acetaminophen 5-325 MG Orally four times a day as needed for pain. Must last 28 days. 1 tablet Jun, Active RESULTS No Results PROCEDURES No Known [...]
--- OUTSIDE RECORDS SUMMARY | 2018-10-08 20:16 | XMS REPORT ---
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 Active 733565993 Problem Edema of both feet R60.0 Active 877254686 Problem Tobacco abuse Z72.0 Active 35485184 Problem Chronic migraine G43.709 Active 73584884 Problem Mixed hyperlipidemia E78.2 Active 590189455 Problem Spinal stenosis, lumbar region M48.06 Active 84829990 Problem Anxiety F41.9 Active 81065091 Problem Radiculopathy of lumbar region M54.16 Active 048585848 Problem Bulging lumbar disc M51.26 Active 891731279 Problem Asthma J45.909 Active 311611871 Problem Essential hypertension I10 Active 48840345 ALLERGIES Substance Reaction Event Type Date Status Prozac severe nightmares Drug Allergy Jun, Active Levaquin Unknown Drug Allergy Jun, Active Diclofenac Sodium rash Drug Allergy Jun, Active ChloraPrep One Step Unknown Drug Allergy Jun, Active Quinolones Unknown Non Drug Allergy Jun, Active ENCOUNTERS Encounter Location Date Diagnosis [facility] [address] [facility] [id number] [address] February, [facility] [address] [facility] [id number], [place] [address] February, Chronic pain G89.29 [facility] [address] [place] [id number] [place] [address] 56724- 1501 Jan, Chronic pain G89.29 [place] [address] 88941- 6484 Jan, 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.4 [place] [address] 56363- 0862 Jan, Encounter for Depo-Provera contraception Z30.42 [place] [address] 80118- 5016 Jan, [place] [address] 31347- 9441 Jan, Chronic pain G89.29 and Anxiety F41.9 [place] [address] 57675- 0667 Jan, [place] [address] 36680- 9827 Dec, [place] [address] 26553- 8263 Dec, Gastroesophageal reflux disease without esophagitis K21.9 and Anxiety F41.9 [place] [address] 67946- 3686 Dec, Essential hypertension I10 ; Mixed hyperlipidemia E78.2 ; Type 2 diabetes mellitus with diabetic neuropathy, unspecified E11.40 ; 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.4 ; Chronic pain G89.29 ; HSV (herpes simplex virus) infection B00.9 ; Anxiety F41.9 and Gastroesophageal reflux disease without esophagitis K21.9 [place] [address] 76764- 5772 Dec, Chronic pain G89.29 and Chronic migraine G43.709 [place] [address] 09859- 9633 Nov, [place] [address] [place] [id number] [place] [address] 9670 08 Nov, 2017 Essential hypertension I10 and Chronic pain G89.29 [place] [address] 20097- 5105 05 Nov, 2017 Chronic pain G89.29 ; Essential hypertension I10 and Type 2 diabetes mellitus without complication E11.9 [place] [address] 66284- 0738 Oct, Chronic pain G89.29 [place] [address] 39604- 4409 Oct, [place] [address] 14691- 4550 Sep, Type 2 diabetes mellitus without complication E11.9 ; Essential hypertension I10 ; 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 ; Chronic migraine G43.709 ; Chronic pain G89.29 and Acute non-recurrent maxillary sinusitis J01.00 [place] [address] [place] [id number] [place] [address] 30881- 4711 19 Sep, 2017 Encounter for Depo-Provera contraception Z30.42 [place] [address] [place] [id number] [place] [address] 14210- 2468 13 Sep, 2017 Chronic pain G89.29 and Radiculopathy of lumbar region M54.16 [place] [address] [place] [id number] [place] [address] 31893- 5081 Sep, [place] [address] [place] [id number] [place] [address] 34131- 7566 Sep, [place] [address] 87374- 5497 Aug, Type 2 diabetes mellitus without complication E11.9 [place] [address] [place] [id number] [place] [address] 34522- 3357 Aug, [place] [address] 45405- 6730 Aug, Radiculopathy of lumbar region M54.16 and Chronic pain G89.29 [facility] [address] [id number] [address] 4890 Aug, Type 2 diabetes mellitus without complication E11.9 [facility] [address] [facility] [id number], [place] [address] 6096 Aug, Type 2 diabetes mellitus without complication E11.9 [facility] [address] [facility] [id number] [place] [address] 40923- 1951 Jul, Type 2 diabetes mellitus without complication E11.9 [facility] [address] [facility] [id number], [place] [address] 3661 Jul, [facility] [address] [place] [id number] [place] [address] 71147- 5237 Jul, Chronic pain G89.29 [facility] [address] [place] [id number], [place] [address] 7533 Jul, [facility] [address] [facility] [id number], [place] [address] 7542 Jul, [facility] [address] [id number], [place] [address] 5771 Jul, Type 2 diabetes mellitus without complication E11.9 [facility] [address] [facility] [id number], [place] [address] 2061 Jul, [facility] [address] [id number], [place] [address]- 0168 Jul, Type 2 diabetes mellitus without complication E11.9 [facility] [address] [facility] [id number], [place] [address]- 6898 Jul, [facility] [address] [facility] [id number], [place] [address]- 4293 Jul, [facility] [address] [place] [address] [id number], [place] [address]- 8170 Jul, [facility] [address] 60399- 7841 27 Jun, 2017 Type 2 diabetes mellitus without complication E11.9 [place] [address] 26748- 5089 26 Jun, 2017 Chronic migraine G43.709 ; Type 2 diabetes mellitus without complication E11.9 ; Calculus of right kidney N20.0 ; Yeast dermatitis B37.2 and HSV (herpes simplex virus) infection B00.9 [place] [address] 94022- 6378 22 Jun, 2017 Type 2 diabetes mellitus without complication E11.9 [place] [address] 32465- 7417 Jun, [place] [address] 11657- 7936 Jun, Radiculopathy of lumbar region M54.16 and Chronic pain G89.29 [place] [address] 54861- 8087 Jun, Encounter for Depo-Provera contraception Z30.42 [place] [address] 89047- 1531 Jun, Type 2 diabetes mellitus without complication E11.9 [place] [address] 07203- 9456 Jun, [facility] [address] 55030 -5336 May, Acute nasopharyngitis (common cold) J00 [place] [address] 64275- 3346 May, Chronic pain G89.29 [place] [address] 38196- 9706 May, Headache following lumbar puncture G97.1 [place] [address] 49582- 5997 May, Radiculopathy of lumbar region M54.16 [place] [address] [place] [id number] [place] [address] 23039- 5513 Apr, [place] [address] 17122- 0908 Apr, Type 2 diabetes mellitus without complication E11.9 ; Chronic pain G89.29 ; Essential hypertension I10 ; Radiculopathy of lumbar region M54.16 ; Spinal stenosis, lumbar region M48.06 ; Gastroesophageal reflux disease without esophagitis K21.9 ; HSV (herpes simplex virus) infection B00.9 ; Mixed hyperlipidemia E78.2 ; Anxiety F41.9 and Asthma J45.909 [place] [address] 28825- 5114 Apr, Encounter for Depo-Provera contraception Z30.[address] 27895- 9070 Apr, Chronic pain G89.29 and Anxiety F41.9 [place] [address] [place] [id number] [place] [address] 11629- 1218 Mar, [place] [address] 55742- 4144 Mar, [place] [address] [place] [id number] [place] [address] 25355- 2036 Mar, Mixed hyperlipidemia E78.2 [place] [address] 56539- 1620 Mar, Type 2 diabetes mellitus without complication E11.9 ; Chronic pain G89.29 ; Essential hypertension I10 ; Radiculopathy of lumbar region M54.16 ; Spinal stenosis, lumbar region M48.06 ; Gastroesophageal reflux disease without esophagitis K21.9 ; HSV (herpes simplex virus) infection B00.9 ; Mixed hyperlipidemia E78.2 and Anxiety F41.9 [place] [address] 36952- 1860 Mar, [facility] [address], [place] [address]- 6082 Mar, [facility] [address], [place] [address]- 9794 Mar, [facility] [address], [place] [address]- 2683 February, Chronic pain G89.29 [facility] [address] [place] [address] [id number] [place] [address] 54291- 2177 February, [facility] [id number] [place] [address] 21127- 6757 Jan, Chronic pain G89.29 [facility] [address], [place] [address]- 9094 Jan, Type 2 diabetes mellitus without complication E11.9 [facility] [address] [place] [address] [id number] [place] [address] 81944- 0763 Jan, [facility] [address], [place] [address]- 2552 Jan, [facility] [id number] [place] [address] 35190- 6317 Jan, [facility] [address], [place] [address]- 4857 Jan, Type 2 diabetes mellitus without complication [...] J01.00 and Encounter for Depo-Provera contraception Z30.42 [facility] [address], [place] [address]- 8365 Dec, Chronic pain G89.29 [place] [id number] [place] [address] 91092- 8528 Dec, Abnormal ankle brachial index (BERNARDINO) R68.89 [place] [address] [place] [id number] [place] [address] 10101- 8163 Dec, [place] [address] [place] [address] [id number] [place] [address] 05814- 8305 Dec, Routine gynecological examination Z01.419 ; Chronic [...] virus) infection B00.9 and Allergic rhinitis 477.9 [place] [address] [place] [id number] [place] [address] 96754- 9714 28 Nov, 2016 Chronic pain G89.29 [place] [address] [place] [address] [id number] [place] [address] 61640- 2384 02 Nov, 2016 Chronic pain G89.29 ; [...] mucoid otitis media of both ears H65.113 [place] [address] [place] [address] 90414- 4234 Oct, [place] [address] [place] [address] [id number] [place] [address] 85538- 8107 Oct, Chronic pain G89.29 [place] [id number] [place] [address] 56079- 2183 Oct, Chronic pain G89.29 [place] [address] [place] [id number] [place] [address] 76957- 2812 Sep, Chronic pain G89.29 ; Type 2 diabetes mellitus without complication E11.9 ; Essential hypertension I10 ; Radiculopathy of lumbar region M54.16 ; Spinal stenosis, lumbar region M48.06 ; Gastroesophageal reflux disease without esophagitis K21.9 ; Encounter for surveillance of injectable contraceptive Z30.42 ; Bilateral cold feet R20.9 ; Pain of left foot M79.672 and Pain in right foot M79.671 [place] [address] 40742- 7735 Sep, [place] [address] 18313- 2404 Aug, [place] [address] 80754- 6594 Aug, [place] [address] 11940- 8825 Aug, Chronic pain G89.29 ; Type 2 diabetes mellitus without complication E11.9 ; Essential hypertension I10 ; Rash and nonspecific skin eruption R21 and Upper respiratory infection, acute J06.9 [place] [address] [place] [id number] [place] [address] 77757- 2730 Aug, [place] [address] [place] [id number] [place] [address] 67474- 1272 Aug, [place] [address] 42535- 9639 Jul, [place] [address] 80819- 5001 Jul, Dysuria R30.0 ; Encounter for Depo-Provera contraception Z30.42 ; Herpes simplex B00.9 ; Nausea & vomiting R11.2 and Asthma J45.909 [place] [address] 93551- 7770 Jun, Dysuria R30.0 [facility] [id number] [place] [address] 75872- 3963 Jun, Dysuria R30.0 [facility] [id number] [place] [address] 76966- 3726 15 Jun, 2016 [facility] [address] [place] [address] [id number] [place] [address] 14924- 4163 Jun, [facility] [address] [id number] [place] [address] 80782- 9442 May, [facility] [address] [place] [id number] [place] [address] 81853- 5631 May, [facility] [address] [place] [id number] [place] [address] 87579- 6632 May, Chronic pain G89.29 ; Essential hypertension I10 ; Type 2 diabetes mellitus without complication E11.9 ; Edema of both feet R60.0 and Rash and nonspecific skin eruption R21 [facility] [address] [id number] [place] [address] 52858- 5162 Apr, [facility] [address] [place] [address] [id number] [place] [address] 91904- 0465 Mar, Carpal tunnel syndrome, left upper limb G56.02 and Carpal tunnel syndrome, right upper limb G56.01 [facility] [address] [place] [id number] [place] [address] 80977- 2078 Mar, [facility] [address] [id number] [place] [address] 22059- 6283 Mar, Encounter for Depo-Provera contraception Z30.42 [facility] [address] [id number] [place] [address] 20931- 7744 February, [facility] [address] [place] [id number] [place] [address] 99604- 0694 February, [facility] [address] [id number] [place] [address] 04045- 7931 February, Chronic pain G89.29 ; Essential hypertension I10 ; Type 2 diabetes mellitus without complication E11.9 ; HSV (herpes simplex virus) infection B00.9 ; Anxiety F41.9 ; Hypersomnia G47.10 ; Tobacco abuse Z72.0 ; Hand pain, left M79.642 ; Hand pain, right M79.641 ; Left foot pain M79.672 and Heart palpitations R00.2 [place] [address] 33649- 5719 Jan, [place] [address] 66109- 4210 Jan, [place] [address] 20060- 6792 Jan, [place] [address] 90564- 1813 Jan, [place] [address] 35308- 7914 Jan, Upper respiratory infection J06.9 and Type 2 diabetes mellitus without complication E11.9 [place] [address] 45122- 6458 Dec, [place] [address] 58093- 0924 Dec, Chronic pain G89.29 ; Essential hypertension I10 ; Type 2 diabetes mellitus without complication E11.9 ; HSV (herpes simplex virus) infection B00.9 ; Anxiety F41.9 ; Upper respiratory infection J06.9 ; Hypersomnia G47.10 and Tobacco abuse Z72.0 [place] [address] 76584- 3851 Dec, Encounter for Depo-Provera contraception Z30.42 [place] [address] 32754- 0228 Dec, [place] [address] 37046- 5506 Dec, Chronic pain G89.29 ; Sinusitis J32.9 ; Snoring R06.83 and Daytime hypersomnia G47.19 [place] [address] 26472- 4126 Nov, HSV (herpes simplex virus) infection B00.9 ; Encounter for Papanicolaou smear for cervical cancer screening Z12.4 ; Screening for STD sexually transmitted disease Z11.3 and Bartholin's gland cyst N75.0 [place] [address] 73955- 9718 Nov, [place] [address] 05204- 0335 Nov, [place] [address] 54411- 3817 Nov, Essential hypertension I10 ; Type 2 diabetes mellitus without complication E11.9 ; HSV (herpes simplex virus) infection B00.9 ; Spinal stenosis, lumbar region M48.06 and Vaginal yeast infection B37.3 [place] [address] 57015- 1381 Nov, [place] [address] 67714- 1944 Nov, [place] [address] 45813- 5074 Oct, [place] [address] 52739- 6904 Oct, HSV (herpes simplex virus) infection B00.9 ; Yeast infection B37.9 ; Change in bowel habit R19.4 ; Nausea & vomiting R11.2 and Gastroesophageal reflux disease without esophagitis K21.9 [place] [address] 60125- 5320 Oct, [place] [address] 36123- 1984 Oct, Type 2 diabetes mellitus without complication E11.9 ; Essential hypertension I10 and Acute maxillary sinusitis, recurrence not specified J01.00 [place] [address] 69459- 0353 Oct, [place] [address] 03826- 0544 Oct, [address] 18157- 4855 Oct, Exposure to head lice Z20.7 ; Blood glucose abnormal R73.09 ; Boil of buttock L02.32 and Type 2 diabetes mellitus without complication E11.[address] 15771- 0108 Oct, [address] 63443- 4493 Sep, [address] 45664- 4739 Sep, [place] [address] 31605- 5444 Aug, Encounter for Depo-Provera contraception Z30.[address] 35113- 4704 Aug, Anxiety F41.9 ; Spinal stenosis, lumbar region M48.06 ; Radiculopathy of lumbar region M54.16 ; Asthma J45.909 ; GERD (gastroesophageal reflux disease) K21.9 ; Essential hypertension I10 and Long-term use of high- risk medication Z79.[address] 54500- 5032 Jul, [address] 00711- 4119 Jun, Hemorrhoid 455.[address] 84103- 9159 Jun, [id number] [place] [address] 88521- 8912 Jun, Anxiety 300.00 ; Asthma 493.90 ; Hyperhidrosis 705.21 ; Chest discomfort 786.59 and Upper respiratory infection 465.9 [place] [id number] [place] [address] 60845- 2317 May, Encounter for Depo-Provera contraception V25.[address] 55956- 3247 May, [address] 28765- 0872 May, [address] 66151- 7831 May, Spinal stenosis of lumbar region with radiculopathy 724.02 ; Bulging of intervertebral disc between L4 and L5 722.10 ; GERD ( gastroesophageal reflux disease) 530.81 ; Chronic pain 338.29 ; Declining mobility 799.89 and Epigastric pain 789.[address] 58353- 3764 Apr, [address] 02970- 7580 Apr, Nausea 787.02 and Heart burn 787.[address] 73351- 5979 Mar, Lumbago 724.2 ; Vitamin D deficiency 268.9 ; Anxiety 300.00 ; Allergic rhinitis 477.9 and Contraceptive surveillance V25.[address] 57265- 8938 February, 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 ; Chronic pain 338.29 and Vaginal discharge 623.[address] 99421- 4783 February, [address] [place] [address]- 4759 05 Feb, 2015 [facility] [place] [facility] [address] [id number] [place] [address]- 5665 14 Jan, 2015 [facility] [place] [facility] [address] [id number] [place] [address]- 4141 Jan, [facility] [place] [facility] [address] [id number] [place] [address]- 7729 Dec, [facility] [place] [facility] [address] [id number] [place] [address]- 5882 Dec, [facility] [place] [facility] [address] [id number] [place] [address]- 0409 Dec, [facility] [place] [facility] [address] [id number] [place] [address]- 0130 Dec, [facility] [place] [facility] [address] [id number] [place] [address]- 6155 Dec, [facility] [place] [facility] [address] [id number] [place] [address]- 9592 18 Dec, 2014 [facility] [place] [facility] [address] [id number] [place] [address]- 4097 Dec, [facility] [place] [facility] [address] [id number] [place] [address]- 9662 Dec, [facility] [place] [facility] [address] [id number] [place] [address]- 1003 Dec, [facility] [place] [facility] [address] [id number] [place] [address]- 0055 Dec, [facility] [place] [facility] [address] [id number] [place] [address]- 8262 Dec, [facility] [place] [facility] [address] [id number] [place] [address]- 0104 Dec, [facility] [place] [facility] [address] [id number] [place] [address]- 1683 Nov, [facility] [place] [facility] [address] [id number] [place] [address]- 1089 Nov, 2014 [facility] [place] [facility] [address] [id number] [place] [address]- 8836 24 Nov, 2014 [facility] [place] [facility] [address] [id number] [place] [address]- 2518 24 Nov, 2014 [facility] [place] [facility] [address] [id number] [place] [address] 2548 23 Nov, 2014 [facility] [place] [facility] [address] [id number] [place] [address]- 2820 23 Nov, 2014 [facility] [place] [facility] [address] [id number] [place] [address]- 2920 16 Nov, 2014 [facility] [place] [facility] [address] [facility] [id number] [place] [address]- 7976 16 Nov, 2014 [facility] [place] [facility] [address] [facility] [id number] [place] [address]- 0480 13 Nov, 2014 [facility] [place] [facility] [address] [facility] [id number] [place] [address]- 8325 13 Nov, 2014 [facility] [place] [facility] [address] [facility] [id number] [place] [address]- 8310 13 Nov, 2014 [facility] [place] [facility] [address] [facility] [id number] [place] [address]- 6044 13 Nov, 2014 [facility] [place] [facility] [address] [facility] [id number] [place] [address] 13 Nov, 2014 [facility] [place] [facility] [address] [facility] [id number] [place] [address] 13 Nov, 2014 [facility] [place] [facility] [address] [facility] [id number] [place] [address] 13 Nov, 2014 [facility] [place] [facility] [address] [facility] [id number] [place] [address] 13 Nov, 2014 [facility] [place] [facility] [address] [id number] [place] [address] Nov, 2014 [facility] [place] [facility] [address] [id number] [place] [address] Nov, 2014 [facility] [place] [facility] [address] [id number] [place] [address] Nov, 2014 [facility] [place] [facility] [address] [id number] [place] [address] Nov, 2014 [facility] [place] [facility] [address] [id number] [place] [address] Nov, 2014 [facility] [place] [facility] [address] [id number] [place] [address] Nov, 2014 [facility] [place] [facility] [address] [facility] [id number] [place] [address] Nov, 2014 [facility] [place] [facility] [address] [id number] [place] [address] Oct, [facility] [place] [facility] [address] [id number] [place] [address] Oct, [facility] [place] [facility] [address] [facility] [id number] [place] [address] Oct, [facility] [place] [facility] [address] [facility] [id number] [place] [address] Oct, [facility] [place] [facility] [address] [id number], [place] [address] Oct, [facility] [place] [facility] [address] [id number] [place] [address] Oct, [facility] [place] [facility] [address] [id number] [place] [address] Oct, [facility] [place] [facility] [address] [id number], [place] [address] Oct, [facility] [place] [facility] [address] [id number], [place] [address] Oct, [facility] [facility] [address] [id number] [place] [address] Oct, [facility] [place] [facility] [address] [id number] [place] [address] 1873 Oct, [facility] [place] [facility] [address] [id number] [place] [address] 4006 Oct, [facility] [place] [facility] [address] [id number] [place] [address]- 6255 Oct, [facility] [place] [facility] [address] [id number] [place] [address] 8279 Oct, [facility] [place] [facility] [address] [id number] [place] [address] 6386 Oct, [facility] [place] [facility] [address] [id number] [place] [address]- 0922 Oct, [facility] [place] [facility] [address] [id number] [place] [address] 7708 Oct, [facility] [place] [facility] [address] [id number] [place] [address]- 1314 Oct, [facility] [place] [facility] [address] [id number] [place] [address] 8179 Oct, [facility] [place] [facility] [address] [id number] [place] [address] 4488 Oct, [facility] [place] [facility] [address] [id number] [place] [address]- 6207 Oct, [facility] [place] [facility] [address] [id number] [place] [address]- 6331 Sep, [facility] [place] [facility] [address] [id number] [place] [address]- 3287 Sep, [facility] [place] [facility] [address] [id number] [place] [address]- 8223 Sep, [facility] [place] [facility] [address] [id number] [place] [address]- 6190 18 Sep, 2014 [facility] [place] [facility] [address] [id number] [place] [address]- 0056 17 Sep, 2014 [facility] [place] [facility] [address] [id number] [place] [address]- 7686 17 Sep, 2014 [facility] [place] [facility] [address] [id number] [place] [address]- 5796 15 Sep, 2014 [facility] [place] [facility] [address] [id number] [place] [address]- 8338 15 Sep, 2014 [facility] [place] [facility] [address] [id number] [place] [address]- 9886 12 Sep, 2014 [facility] [place] [facility] [address] [id number] [place] [address]- 0074 12 Sep, 2014 [facility] [place] [facility] [address] [id number] [place] [address]- 9486 11 Sep, 2014 [facility] [place] [facility] [address] [id number] [place] [address]- 1709 11 Sep, 2014 [facility] [place] [facility] [address] [id number] [place] [address]- 8104 11 Sep, 2014 [facility] [place] [facility] [address] [id number] [place] [address]- 0969 11 Sep, 2014 [facility] [place] [facility] [address] [id number] [place] [address]- 5723 11 Sep, 2014 [facility] [place] [facility] [address] [id number] [place] [address]- 4744 11 Sep, 2014 [facility] [place] [facility] [address] [id number] [place] [address]- 2996 10 Sep, 2014 [facility] [place] [facility] [address] [id number] [place] [address]- 0956 10 Sep, 2014 [facility] [place] [facility] [address] [id number] [place] [address]- 8394 Sep, [facility] [place] [facility] [address] [id number] [place] [address]- 1022 Sep, [facility] [place] [facility] [address] [id number] [place] [address]- 3957 Aug, [facility] [place] [facility] [address] [id number] [place] [address]- 5339 Aug, [facility] [place] [facility] [address] [id number] [place] [address]- 8497 Aug, [facility] [place] [facility] [address] [id number] [place] [address]- 8338 Aug, [facility] [place] [facility] [address] [id number] [place] [address]- 1211 Aug, [facility] [place] [facility] [address] [id number] [place] [address]- 7077 Aug, [facility] [place] [facility] [address] [id number] [place] [address]- 4693 Aug, [facility] [place] [facility] [address] [id number] [place] [address]- 4389 Aug, [facility] [place] [facility] [address] [id number] [place] [address]- 5123 Aug, [facility] [place] [facility] [address] [id number], [place] [address]- 2872 Jul, [facility] [place] [facility] [address] [id number], [place] [address]- [address]13 Jul, [facility] [place] [facility] [address] [id number] [place] [address]- 0809 Jul, [facility] [place] [facility] [address] [id number] [place] [address]- 4754 Jul, [facility] [place] [facility] [address] [id number], [place] [address]- 2[address] 16 Jul, 2014 [facility] [place] [facility] [address] [id number] [place] [address]- 9177 16 Jul, 2013 [facility] [place] [facility] [address] [id number] [place] [address]- 4404 13 Jul, 2013 [facility] [place] [facility] [address] [id number] [place] [address]- 4296 13 Jul, 2013 [facility] [place] [facility] [address] [id number] [place] [address]- 9020 10 Jul, 2013 [facility] [place] [facility] [address] [id number] [place] [address]- 4740 10 Jul, 2013 [facility] [place] [facility] [address] [id number] [place] [address]- 2668 10 Jul, 2014 [facility] [place] [facility] [address] [id number] [place] [address]- 7326 10 Jul, 2013 [facility] [place] [facility] [address] [id number] [place] [address]- 9013 07 Jul, 2013 [facility] [place] [facility] [address] [id number] [place] [address]- 6617 07 Jul, 2014 [facility] [place] [facility] [address] [id number] [place] [address]- 9324 30 Jun, 2013 [facility] [place] [facility] [address] [id number] [place] [address]- 4553 30 Sep, 2013 [facility] [place] [facility] [address] [id number] [place] [address] 2546 25 Sep, 2013 [facility] [place] [facility] [address] [id number] [place] [address]- 2546 25 Sep, 2013 [facility] [place] [facility] [address] [id number] [place] [address] 2546 25 Sep, 2013 [facility] [place] [facility] [address] [id number] [place] [address]- 2546 25 Sep, 2013 [facility] [place] [facility] [address] [id number] [place] [address]- 6095 24 Sep, 2013 [facility] [place] [facility] [address] [id number] [place] [address]- 7480 24 Sep, 2013 [facility] [place] [facility] [address] [id number] [place] [address]- 4868 22 Sep, 2013 [facility] [place] [facility] [address] [id number] [place] [address] 2540 22 Sep, 2013 [facility] [place] [facility] [address] [id number] [place] [address]- 2980 17 Sep, 2013 [facility] [place] [facility] [address] [id number] [place] [address]- 6946 17 Sep, 2013 [facility] [place] [facility] [address] [id number] [place] [address]- 6057 16 Jun, 2013 [facility] [place] [facility] [address] [id number] [place] [address]- 9018 16 Jun, 2013 [facility] [place] [facility] [address] [id number] [place] [address]- 0118 15 Jun, 2013 [facility] [place] [facility] [address] [id number] [place] [address]- 1640 15 Jun, 2013 [facility] [place] [facility] [address] [id number] [place] [address]- 5460 12 Jun, 2013 [facility] [place] [facility] [address] [id number] [place] [address]- 3714 12 Jun, 2013 [facility] [place] [facility] [address] [id number] [place] [address]- 2547 11 Jun, 2013 [facility] [place] [facility] [address] [id number] [place] [address] 254 11 Jun, 2013 [facility] [place] [facility] [address] [id number] [place] [address] 2544 11 Sep, 2013 [facility] [place] [facility] [address] [id number] [place] [address]- 2543 11 Sep, 2013 [facility] [place] [facility] [address] [id number] [place] [address]- 9806 Jun, [facility] [place] [facility] [address] [id number] [place] [address]- 8343 Jun, [facility] [place] [facility] [address] [id number] [place] [address]- 3147 Jun, [facility] [place] [facility] [address] [id number] [place] [address]- 2067 Jun, [facility] [place] [facility] [address] [id number] [place] [address]- 5043 May, [facility] [place] [facility] [address] [id number] [place] [address]- 3562 May, [facility] [place] [facility] [address] [id number] [place] [address]- 3689 May, [facility] [place] [facility] [address] [id number] [place] [address]- 4373 May, [facility] [place] [facility] [address] [id number] [place] [address]- 7810 May, [facility] [place] [facility] [address] [id number] [place] [address]- 6352 May, [facility] [place] [facility] [address] [id number] [place] [address]- 9622 May, [facility] [place] [facility] [address] [id number] [place] [address]- 9763 May, [facility] [place] [facility] [address] [id number] [place] [address]- 1989 May, [facility] [place] [facility] [address] [id number] [place] [address]- 1818 May, [facility] [place] [facility] [address] [id number] [place] [address]- 9817 May, [facility] [place] [facility] [address] [id number] [place] [address]- 5993 May, [facility] [place] [facility] [address] [id number] [place] [address]- 9597 May, [facility] [address] [id number] [place] [address]- 8297 Apr, [facility] [place] [facility] [address] [id number] [place] [address]- 8523 Apr, [facility] [place] [facility] [address] [id number] [place] [address]- 8420 Apr, [facility] [place] [facility] [address] [id number] [place] [address]- 8195 Apr, [facility] [place] [facility] [address] [id number] [place] [address]- 1096 Apr, [facility] [place] [facility] [address] [id number] [place] [address]- 0427 Mar, [facility] [place] [facility] [address] [id number] [place] [address]- 2326 Mar, [facility] [address] [id number] [place] [address]- 3863 Mar, [facility] [place] [facility] [address] [id number] [place] [address]- 4937 February, [facility] [address] [id number] [place] [address]- 6754 February, [facility] [place] [facility] [address] [id number] [place] [address]- 2485 February, [facility] [place] [facility] [address] [id number] [place] [address]- 7728 February, [facility] [place] [facility] [address] [id number] [place] [address]- 2153 February, [facility] [place] [facility] [address] [id number] [place] [address]- 3326 February, [facility] [place] [facility] [address] [id number] [place] [address]- 7430 February, [facility] [place] [facility] [address] [id number] [place] [address]- 9691 February, [facility] [place] [facility] [address] [id number] [place] [address]- 0504 February, [facility] [place] [facility] [address] [id number] [place] [address]- 5692 Jan, [facility] [place] [facility] [address] [id number] [place] [address]- 1680 Jan, [facility] [place] [facility] [address] [id number] [place] [address]- 9811 Jan, [facility] [place] [facility] [address] [id number] [place] [address]- 8870 Jan, [facility] [place] [facility] [address] [id number] [place] [address]- 6538 Jan, [facility] [place] [facility] [address] [id number] [place] [address]- 2230 Dec, [facility] [place] [facility] [address] [id number] [place] [address]- 1480 Dec, [facility] [place] [facility] [address] [id number] [place] [address]- 9595 Dec, [facility] [place] [facility] [address] [id number] [place] [address]- 8479 Dec, [facility] [place] [facility] [address] [id number] [place] [address]- 1652 Dec, [facility] [place] [facility] [address] [id number] [place] [address]- 8471 Nov, [facility] [place] [facility] [address] [id number] [place] [address]- 6760 Nov, [facility] [place] [facility] [address] [id number] [place] [address]- 2548 Nov, [facility] [place] [facility] [address] [id number] [place] [address]- 8353 Nov, [facility] [place] [facility] [address] [id number] [place] [address]- 8009 Oct, [facility] [place] [facility] [address] [id number] [place] [address]- 9319 Oct, [facility] [place] [facility] [address] [id number] [place] [address]- 5147 Oct, [facility] [place] [facility] [address] [id number] [place] [address]- 0788 Oct, [facility] [place] [facility] [address] [id number] [place] [address]- 5232 Oct, [facility] [place] [facility] [address] [id number] [place] [address]- 0613 Oct, [facility] [place] [facility] [address] [id number] [place] [address]- 1452 Oct, [facility] [place] [facility] [address] [id number] [place] [address]- 9823 Oct, [facility] [place] [facility] [address] [id number] [place] [address]- 4891 Oct, [facility] [place] [facility] [address] [id number] [place] [address]- 4544 Oct, [facility] [place] [facility] [address] [id number] [place] [address]- 4160 Aug, [facility] [place] [facility] [address] [id number] [place] [address]- 1593 Aug, [facility] [place] [facility] [address] [id number] [place] [address]- 0749 Jul, [facility] [place] [facility] [address] [id number] [place] [address]- 2043 Jul, [facility] [place] [facility] [address] [id number] [place] [address]- 6248 Jul, [facility] [place] [facility] [address] [id number] [place] [address]- 7228 Jul, [facility] [place] [facility] [address] [id number] [place] [address]- 3446 Jul, [facility] [place] [facility] [address] [id number] [place] [address]- 0639 Jul, [facility] [place] [facility] [address] [id number] [place] [address]- 9743 Apr, [facility] [place] [facility] [address] [id number] [place] [address]- 6563 Dec, [facility] [place] [facility] [address] [id number] [place] [address]- 4881 Nov, [facility] [place] [facility] [address] [id number] [place] [address]- 1786 Nov, [facility] [place] [facility] [address] [id number] [place] [address]- 0991 Nov, [facility] [place] [facility] [address] [id number] [place] [address]- 0178 Oct, [facility] [place] [facility] [address] [id number] [place] [address]- 5329 Sep, [facility] [place] [facility] [address] [id number] [place] [address]- 1868 Sep, [facility] [place] [facility] [address] [id number] [place] [address]- 5099 Sep, [facility] [place] [facility] [address] [id number] [place] [address]- 2462 Sep, [facility] [place] [facility] [address] [id number] [place] [address]- 7985 Aug, [facility] [place] [facility] [address] [id number] [place] [address]- 6144 Aug, [facility] [place] [facility] [address] [id number] [place] [address]- 7483 Jul, [facility] [place] [facility] [address] [id number] [place] [address]- 4291 Jul, [facility] [place] [facility] [address] [id number] [place] [address]- 3743 28 Jun, 2012 [facility] [place] [facility] [address] [id number] [place] [address]- 7726 26 Jun, 2012 [facility] [place] [facility] [address] [id number] [place] [address]- 1038 24 Jun, 2012 [facility] [place] [facility] [address] [id number] [place] [address]- 3860 24 Jun, 2012 [facility] [place] [facility] [address] [id number] [place] [address]- 7267 Jun, [facility] [place] [facility] [address] [id number] [place] [address]- 5254 Apr, [facility] [place] [facility] [address] [id number] [place] [address]- 7971 30 Apr, 2012 [facility] [place] [facility] [address] [id number] [place] [address]- 0653 Apr, [facility] [place] [facility] [address] [id number] [place] [address]- 3056 Mar, [facility] [place] [facility] [address] [id number] [place] [address]- 3676 Mar, [facility] [place] [facility] [address] [id number] [place] [address]- 4881 Mar, [facility] [place] [facility] [address] [id number] [place] [address]- 8958 February, [facility] [place] [facility] [address] [id number] [place] [address]- 3341 Jan, [facility] [place] [facility] [address] [id number] [place] [address]- 5659 Dec, [facility] [place] [facility] [address] [id number] [place] [address]- 8936 21 Dec, 2011 [facility] [place] [facility] [address] [id number] [place] [address]- 4221 20 Dec, 2011 [facility] [place] [facility] [address] [id number] [place] [address]- 4207 19 Dec, 2011 [facility] [place] [facility] [address] [id number] [place] [address]- 2272 Dec, [facility] [place] [facility] [address] [id number] [place] [address]- 0675 14 Nov, 2011 [facility] [place] [facility] [address] [id number] [place] [address]- 2388 Nov, [facility] [place] [facility] [address] [id number] [place] [address]- 1029 Oct, [facility] [place] [facility] [address] [id number] [place] [address]- 5535 Oct, [facility] [place] [facility] [address] [id number] [place] [address]- 9233 Oct, [facility] [place] [facility] [address] [id number] [place] [address]- 6532 Sep, [facility] [place] [facility] [address] [id number] [place] [address]- 9711 Aug, [facility] [place] [facility] [address] [id number] [place] [address]- 6418 Aug, [facility] [place] [facility] [address] [id number] [place] [address]- 3577 28 Jul, 2011 [facility] [place] [facility] [address] [id number] [place] [address]- 6389 24 Jul, 2011 [facility] [place] [facility] [address] [id number] [place] [address]- 5806 19 Jul, 2011 [facility] [place] [facility] [address] [id number] [place] [address]- 6710 13 Jan, 2011 [facility] [address] [id number] [place] [address]- 5313 29 Sep, 2010 [facility] [place] [facility] [address] [id number] [place] [address]- 7336 27 Sep, 2010 [facility] [place] [facility] [address] [id number] [place] [address]909 Sep, [facility] [place] [facility] [address] [id number] [place] [address]- 7683 Sep, [facility] [place] [facility] [address] [id number] [place] [address] Sep, [facility] [place] [facility] [address] [id number] [place] [address] 16 Aug, 2010 [facility] [place] [facility] [address] [id number] [place] [address] Aug, [facility] [place] [facility] [address] [id number] [place] [address] 08 Aug, 2010 [facility] [place] [facility] [address] [id number] [place] [address] Jul, [facility] [place] [facility] [address] [id number] [place] [address] Jul, [facility] [place] [facility] [address] [id number], [place] [address] Jul, [facility] [place] [facility] [address] [id number], [place] [address] 11 May, 2010 [facility] [place] [facility] [address] [id number] [place] [address] 13 Apr, 2010 [facility] [place] [facility] [address] [id number], [place] [address] 18 Dec, 2009 [facility] [place] [facility] [address] [id number] [place] [address] 17 Sep, 2009 [facility] [place] [facility] [address] [facility] [id number] [place] [address] Sep, [facility] [address] [facility] [id number], [place] [address] Aug, [facility] [address] [facility] [id number][place] [address] Aug, [facility] [address] [facility] [id number], [place] [address] Jul, [facility] [address] [facility] [id number], [place] [address] Mar, IMMUNIZATIONS No Known Immunizations SOCIAL HISTORY Never Assessed REASON FOR VISIT Hospital f/u- jennifer---DBennettRN, rash in groin area PLAN OF CARE Activity Details Follow Up 2 Months Reason:DM/GOTTLIEB/Pain VITAL SIGNS Height 63 in 2017-07-16 Weight 203 lbs 2017-07-16 Temperature 98.4 degrees Fahrenheit 2017-07-16 Heart Rate 88 bpm 2017-07-16 Respiratory Rate 20 2017-07-16 BMI 35.96 kg/m2 2017-07-16 Blood pressure systolic 112 mmHg 2017-07-16 Blood pressure diastolic 68 mmHg 2017-07-16 MEDICATIONS Medication Instructions Dosage Frequency Start Date End Date Duration Status Mptpweytpq-[id number]-[id number] 50-325-40 MG Orally every 6 hrs for severe headache 1 tablet as needed Jun, Active Hydrocodone-Acetaminophen 5-325 MG Orally four times a day as needed for pain. Must last 28 days. 1 tablet Jun, Active OneKalneuch Verio - In Vitro twice a day DX: E11.9 test blood sugar Jun, Active Symbicort 80-4.5 MCG/ACT Inhalation Twice a day 2 puffs 12h Jul, Active Amlodipine Besylate 5 MG Orally Once a day 1 tablet 24h Active Cane 1 as directed 24h May, 99 days Active ProAir HFA 108 (90 Base) MCG/ACT Inhalation every 4 hrs prn 2 puffs as needed Jun, 30 days Active Cefuroxime Axetil 500 MG Orally Twice a day 1 tablet 12h Jun, Active Carafate 1 GM orally twice daily 1 tablet Active Flonase 50 mcg/act Nasally Once a day 1 sprays by Nasal route 2 times per day in each nostril 24h 30 days Active Metoprolol Tartrate 25 MG Orally Twice a day 1 tablet with food 12h Active NovoLog Flexpen 100 UNIT/ML Subcutaneous before meals as directed per protocol Active Clorazepate Dipotassium 15 MG Orally 3 times a day prn must last 28 days. 1 tablet 28 Active Fenofibrate 145 MG Orally Once a day 1 tablet 24h Mar, 30 day(s ) Active Lidocaine 5 % Externally Three times a day 1 application to affected area as needed 8h Active Nystatin 695792 UNIT/GM Externally three times a day 1 application to affected area 8h Oct, Active Levemir Flexpen 100 UNIT/ML Subcutaneous at bedtime 12 units Active Protonix 40 MG Orally Once a day 1 tablet 24h Active Lyrica 150 MG Orally Three times a day 1 capsule 8h Active Nabumetone 500 mg Orally Twice a day 1 tablet 12h Aug, 90 days Active Imitrex 100 MG Orally Once a day prn 1 tablet by Oral route 1 time per day and repeat once more after 2 hours if headache recurs PRN May, Active MS Contin 15 MG Orally every 12 hrs as needed must last 28 days 1 tablet Jun, Active Valacyclovir HCl 1 GM Orally every 24 hrs 1 tablet 30 Active OneTouch Lancets - as directed Jun, Active Glimepiride 2 MG Orally twice a day 1 tablet 12h Active Humalog KwikPen 100 UNIT/ML Subcutaneous 2 times a day per scale at olivia 12h Active Nystatin 854290 UNIT/GM Externally 3 times a day 1 application to affected area 8h Jun, Active Robaxin 500 MG Orally 3 times a day 1 tablet 8h Active Fluconazole 100 mg Orally Once a day 1 tablet 24h Jun, Jul, 10 days Active BD Pen Needle Ultrafine 29G X 12.7MM Inject Active RESULTS No Results PROCEDURES No Known [...]
--- OUTSIDE RECORDS SUMMARY | 2018-10-08 20:17 | XMS REPORT ---
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 691770781 Problem Edema of both feet R60.0 Active 976241194 Problem Tobacco abuse Z72.0 Active 10400006 Problem Chronic migraine G43.709 Active 82091522 Problem Mixed hyperlipidemia E78.2 Active 511742961 Problem Spinal stenosis, lumbar region M48.06 Active 21098241 Problem Anxiety F41.9 Active 99255318 Problem Radiculopathy of lumbar region M54.16 Active 046287716 Problem Bulging lumbar disc M51.26 Active 145545348 Problem Asthma J45.909 Active 756554383 Problem Essential hypertension I10 Active 38422995 ALLERGIES No Information ENCOUNTERS Encounter Location Date Diagnosis [place] [id number] [place] [address] 02812- 6760 Mar, HSV (herpes simplex virus) infection B00.9 ; Anxiety F41.9 and Chronic pain G89.29 [facility] [address] [place] [id number] [place] [address] 19555- 7238 Mar, [facility] [address] [place] [address] 75256- 0021 Mar, Chronic pain G89.29 [place] [address] 10188- 6867 February, Chronic pain G89.29 [place] [address] 39872- 7557 Jan, Chronic pain G89.29 [place] [address] 80427- 6654 Jan, 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.4 [place] [address] 94661- 2154 Jan, Encounter for Depo-Provera contraception Z30.42 [place] [address] 73825- 6618 Jan, [place] [address] 18932- 1639 Jan, Chronic pain G89.29 and Anxiety F41.9 [place] [address] 05938- 0868 Jan, [place] [address] 23492- 4240 Dec, [place] [address] 87085- 6340 Dec, Gastroesophageal reflux disease without esophagitis K21.9 and Anxiety F41.9 [place] [address] 85892- 3078 Dec, Essential hypertension I10 ; Mixed hyperlipidemia E78.2 ; Type 2 diabetes mellitus with diabetic neuropathy, unspecified E11.40 ; 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 ; Chronic pain G89.29 ; HSV (herpes simplex virus) infection B00.9 ; Anxiety F41.9 and Gastroesophageal reflux disease without esophagitis K21.9 [place] [address] 81179- 2098 07 Dec, 2017 Chronic pain G89.29 and Chronic migraine G43.709 [place] [address] [place] [address]- 8629 Nov, [place] [address] [place] [id number] [place] [address] 36350- 2181 Nov, Essential hypertension I10 and Chronic pain G89.29 [place] [address] [place] [id number] [place] [address] 40267- 2712 Nov, Chronic pain G89.29 ; Essential hypertension I10 and Type 2 diabetes mellitus without complication E11.9 [place] [address] 37420- 9559 Oct, Chronic pain G89.29 [place] [address] 66051- 5146 Oct, [place] [address] [place] [id number] [place] [address] 06685- 5045 Sep, Type 2 diabetes mellitus without complication E11.9 ; Essential hypertension I10 ; motorcoach operator (current) use of insulin Z79.4 ; Chronic migraine G43.709 ; Chronic pain G89.29 and Acute non-recurrent maxillary sinusitis J01.00 [place] [address] [place] [id number] [place] [address] 24949- 4244 Sep, Encounter for Depo-Provera contraception Z30.42 [place] [address] [place] [id number] [place] [address] 23216- 9323 Sep, Chronic pain G89.29 and Radiculopathy of lumbar region M54.16 [place] [address] [place] [id number] [place] [address] 54634- 2679 Sep, [place] [address] 92369- 5957 Sep, [place] [address] [place] [id number] [place] [address] 05056- 3300 Aug, Type 2 diabetes mellitus without complication E11.9 [place] [address] [place] [id number] [place] [address] 32064- 9841 Aug, [facility] [address] [facility] [id number], [place] [address] 2546 Aug, Radiculopathy of lumbar region M54.16 and Chronic pain G89.29 [facility] [address] [id number], [place] [address] 2546 Aug, Type 2 diabetes mellitus without complication E11.9 [facility] [address] [id number], [place] [address] 2546 Aug, Type 2 diabetes mellitus without complication E11.9 [facility] [address] [id number], [place] [address]- 3526 Jul, Type 2 diabetes mellitus without complication E11.9 [facility] [address] [facility] [id number], [place] [address]- 9896 Jul, [facility] [address] [facility] [id number], [place] [address]- 6295 Jul, Chronic pain G89.29 [facility] [address] [id number], [place] [address] 2546 Jul, [facility] [address] [facility] [id number], [place] [address]- 1816 Jul, [facility] [address] [facility] [id number], [place] [address]- 3253 Jul, Type 2 diabetes mellitus without complication E11.9 [facility] [address] [facility] [id number], [place] [address]- 8156 Jul, [facility] [address] [facility] [id number], [place] [address]- 2548 Jul, Type 2 diabetes mellitus without complication E11.9 [facility] [address] [facility] [id number], [place] [address] 2546 Jul, [facility] [address] [facility] [id number], [place] [address]- 8366 Jul, [facility] [address] [place] [id number] [place] [address] 19929- 9726 Jul, [place] [address] 03609- 5465 Jun, Type 2 diabetes mellitus without complication E11.9 [facility] [address] [place] [id number] [place] [address] 64041- 3821 Jun, Chronic migraine G43.709 ; Type 2 diabetes mellitus without complication E11.9 ; Calculus of right kidney N20.0 ; Yeast dermatitis B37.2 and HSV (herpes simplex virus) infection B00.9 [place] [address] 73022- 1338 Jun, Type 2 diabetes mellitus without complication E11.9 [place] [address] [place] [id number] [place] [address] 17717- 0238 Jun, [place] [address] 36607- 2398 Jun, Radiculopathy of lumbar region M54.16 and Chronic pain G89.29 [place] [address] [place] [id number] [place] [address] 64004- 3466 Jun, Encounter for Depo-Provera contraception Z30.42 [place] [address] [place] [id number] [place] [address] 97417- 4604 Jun, Type 2 diabetes mellitus without complication E11.9 [place] [address] [place] [id number] [place] [address] 78518- 7464 Jun, [facility] [address] [place] [id number] [place] [address] 72893 -1966 May, Acute nasopharyngitis (common cold) J00 [facility] [address] [place] [id number] [place] [address] 43563- 6418 May, Chronic pain G89.29 [facility] [address] [place] [id number] [place] [address] 46658- 4687 May, Headache following lumbar puncture G97.1 [place] [address] [place] [id number] [place] [address] 21787- 5092 May, Radiculopathy of lumbar region M54.16 [place] [address] [place] [id number] [place] [address] 52913- 7916 Apr, [place] [address] [place] [id number] [place] [address] 68364- 5523 Apr, Type 2 diabetes mellitus without complication E11.9 ; Chronic pain G89.29 ; Essential hypertension I10 ; Radiculopathy of lumbar region M54.16 ; Spinal stenosis, lumbar region M48.06 ; Gastroesophageal reflux disease without esophagitis K21.9 ; HSV (herpes simplex virus) infection B00.9 ; Mixed hyperlipidemia E78.2 ; Anxiety F41.9 and Asthma J45.909 [place] [address] [place] [id number] [place] [address] 03515- 8018 Apr, Encounter for Depo-Provera contraception Z30.42 [place] [address] [place] [id number] [place] [address] 14981- 2536 Apr, Chronic pain G89.29 and Anxiety F41.9 [place] [address] [place] [id number] [place] [address] 88292- 6784 Mar, [place] [address] [place] [id number] [place] [address] 84880- 9047 Mar, [place] [address] [place] [id number] [place] [address] 01258- 0807 Mar, Mixed hyperlipidemia E78.2 [place] [address] [place] [id number] [place] [address] 91159- 9076 Mar, Type 2 diabetes mellitus without complication E11.9 ; Chronic pain G89.29 ; Essential hypertension I10 ; Radiculopathy of lumbar region M54.16 ; Spinal stenosis, lumbar region M48.06 ; Gastroesophageal reflux disease without esophagitis K21.9 ; HSV (herpes simplex virus) infection B00.9 ; Mixed hyperlipidemia E78.2 and Anxiety F41.9 [facility] [address] [address]- 4266 Mar, [facility] [address] [place] [id number] [place] [address] 89221- 3734 Mar, [facility] [address] [place] [id number] [place] [address] 92525- 4938 Mar, [facility] [address] [place] [id number] [place] [address] 81594- 1728 February, Chronic pain G89.29 [facility] [address] [place] [id number] [place] [address] 03786- 1482 February, [facility] [address] [place] [id number] [place] [address] 69768- 2525 Jan, Chronic pain G89.29 [facility] [address] [place] [id number] [place] [address] 18663- 3847 Jan, Type 2 diabetes mellitus without complication E11.9 [facility] [address] [place] [id number] [place] [address] 95759- 0737 Jan, [facility] [address] [place] [id number] [place] [address] 65448- 6448 Jan, [facility] [address] [place] [id number] [place] [address] 86763- 0959 Jan, [facility] [address] [place] [id number] [place] [address] 13449- 4623 Jan, Type 2 diabetes mellitus without complication [...] J01.00 and Encounter for Depo-Provera contraception Z30.42 [place] [address] [place] [id number] [place] [address] 68404- 9487 Dec, Chronic pain G89.29 [place] [address] 67510- 6646 Dec, Abnormal ankle brachial index (BERNARDINO) R68.89 [place] [address] [place] [id number] [place] [address] 34394- 9766 Dec, [place] [address] 20292- 3976 Dec, Routine gynecological examination Z01.419 ; Chronic [...] virus) infection B00.9 and Allergic rhinitis 477.9 [place] [address] [place] [id number] [place] [address] 57095- 6946 28 Nov, 2016 Chronic pain G89.29 [place] [address] 55081- 1484 02 Nov, 2016 Chronic pain G89.29 ; [...] mucoid otitis media of both ears H65.113 [place] [address] [place] [id number] [place] [address] 42010- 9499 Oct, [place] [address] [place] [id number] [place] [address] 54205- 9122 Oct, Chronic pain G89.29 [place] [address] [place] [id number] [place] [address] 23909- 3246 Oct, Chronic pain G89.29 [place] [address] 08443- 2518 Sep, Chronic pain G89.29 ; Type 2 diabetes mellitus without complication E11.9 ; Essential hypertension I10 ; Radiculopathy of lumbar region M54.16 ; Spinal stenosis, lumbar region M48.06 ; Gastroesophageal reflux disease without esophagitis K21.9 ; Encounter for surveillance of injectable contraceptive Z30.42 ; Bilateral cold feet R20.9 ; Pain of left foot M79.672 and Pain in right foot M79.671 [place] [address] 64080- 6213 Sep, [place] [address] 89165- 5007 Aug, [place] [address] 27330- 1387 Aug, [place] [address] 95469- 0505 Aug, Chronic pain G89.29 ; Type 2 diabetes mellitus without complication E11.9 ; Essential hypertension I10 ; Rash and nonspecific skin eruption R21 and Upper respiratory infection, acute J06.9 [place] [address] 18031- 7921 Aug, [place] [address] 48007- 9435 Aug, [place] [address] 00866- 9514 Jul, [address] 47536- 5533 Jul, Dysuria R30.0 ; Encounter for Depo-Provera contraception Z30.42 ; Herpes simplex B00.9 ; Nausea & vomiting R11.2 and Asthma J45.909 [facility] [address] [place] [id number] [place] [address] 82225- 2939 21 Jun, 2016 Dysuria R30.0 [facility] [address] [place] [id number] [place] [address] 31392- 3133 19 Jun, 2016 Dysuria R30.0 [facility] [address] [place] [id number] [place] [address] 18035- 5730 15 Jun, 2016 [facility] [address] [place] [id number] [place] [address] 18298- 7116 13 Jun, 2016 [facility] [address] [place] [id number] [place] [address] 01329- 0483 May, [facility] [address] [place] [id number] [place] [address] 55116- 6997 May, [facility] [address] [place] [id number] [place] [address] 78857- 5846 May, Chronic pain G89.29 ; Essential hypertension I10 ; Type 2 diabetes mellitus without complication E11.9 ; Edema of both feet R60.0 and Rash and nonspecific skin eruption R21 [place] [address] [place] [id number] [place] [address] 84178- 5302 Apr, [facility] [address] [place] [id number] [place] [address] 79894- 7337 Mar, Carpal tunnel syndrome, left upper limb G56.02 and Carpal tunnel syndrome, right upper limb G56.01 [facility] [address] [place] [id number] [place] [address] 89117- 0389 Mar, [facility] [address] [place] [id number] [place] [address] 85348- 8453 Mar, Encounter for Depo-Provera contraception Z30.42 [facility] [address] [place] [id number] [place] [address] 11609- 5455 February, [facility] [address] [place] [id number] [place] [address] 49791- 3601 February, [place] [address] [place] [id number] [place] [address] 93331- 2225 February, Chronic pain G89.29 ; Essential hypertension I10 ; Type 2 diabetes mellitus without complication E11.9 ; HSV (herpes simplex virus) infection B00.9 ; Anxiety F41.9 ; Hypersomnia G47.10 ; Tobacco abuse Z72.0 ; Hand pain, left M79.642 ; Hand pain, right M79.641 ; Left foot pain M79.672 and Heart palpitations R00.2 [place] [address] 67012- 5021 Jan, [place] [address] 56158- 3152 Jan, [place] [address] 23448- 2058 Jan, [place] [address] 94590- 2942 Jan, [place] [address] 55517- 2912 Jan, Upper respiratory infection J06.9 and Type 2 diabetes mellitus without complication E11.9 [place] [address] [place] [id number] [place] [address] 14963- 9394 Dec, [place] [address] 29779- 8063 Dec, Chronic pain G89.29 ; Essential hypertension I10 ; Type 2 diabetes mellitus without complication E11.9 ; HSV (herpes simplex virus) infection B00.9 ; Anxiety F41.9 ; Upper respiratory infection J06.9 ; Hypersomnia G47.10 and Tobacco abuse Z72.0 [place] [address] 41401- 9130 Dec, Encounter for Depo-Provera contraception Z30.42 [place] [address] 32154- 0640 Dec, [place] [address] [place] [id number] [place] [address] 83439- 1296 Dec, Chronic pain G89.29 ; Sinusitis J32.9 ; Snoring R06.83 and Daytime hypersomnia G47.19 [place] [address] [place] [id number] [place] [address] 05081- 0638 Nov, HSV (herpes simplex virus) infection B00.9 ; Encounter for Papanicolaou smear for cervical cancer screening Z12.4 ; Screening for STD sexually transmitted disease Z11.3 and Bartholin's gland cyst N75.0 [place] [address] 51520- 7526 Nov, [place] [address] 49428- 5334 Nov, [place] [address] 32041- 1674 Nov, Essential hypertension I10 ; Type 2 diabetes mellitus without complication E11.9 ; HSV (herpes simplex virus) infection B00.9 ; Spinal stenosis, lumbar region M48.06 and Vaginal yeast infection B37.3 [place] [address] [place] [id number] [place] [address] 18615- 8049 Nov, [place] [address] [place] [id number] [place] [address] 45899- 8141 Nov, [place] [address] [place] [id number] [place] [address] 68407- 8241 Oct, [place] [address] [place] [id number] [place] [address] 22795- 5058 Oct, HSV (herpes simplex virus) infection B00.9 ; Yeast infection B37.9 ; Change in bowel habit R19.4 ; Nausea & vomiting R11.2 and Gastroesophageal reflux disease without esophagitis K21.9 [place] [address] [place] [id number] [place] [address] 17910- 1325 Oct, [address] 53191- 7075 Oct, Type 2 diabetes mellitus without complication E11.9 ; Essential hypertension I10 and Acute maxillary sinusitis, recurrence not specified J01.[address] 36767- 9151 Oct, [address] 99496- 7196 Oct, [address] 21169- 6040 Oct, Exposure to head lice Z20.7 ; Blood glucose abnormal R73.09 ; Boil of buttock L02.32 and Type 2 diabetes mellitus without complication E11.[address] 12558- 4750 Oct, [address] 09931- 9964 Sep, [address] 65913- 3664 Sep, [address] 49696- 7917 Aug, Encounter for Depo-Provera contraception Z30.[address] 34977- 6278 Aug, Anxiety F41.9 ; Spinal stenosis, lumbar region M48.06 ; Radiculopathy of lumbar region M54.16 ; Asthma J45.909 ; GERD (gastroesophageal reflux disease) K21.9 ; Essential hypertension I10 and Long-term use of high- risk medication Z79.[address] 88731- 9706 Jul, [address] 66456- 2317 Jun, Hemorrhoid 455.[address] [id number] [place] [address]- 9531 Jun, [place] [address] 14996- 6304 Jun, Anxiety 300.00 ; Asthma 493.90 ; Hyperhidrosis 705.21 ; Chest discomfort 786.59 and Upper respiratory infection 465.[address] 22392- 0736 May, Encounter for Depo-Provera contraception V25.[address] 19447- 6019 May, [address] 70769- 8825 May, [address] 90509- 8864 May, Spinal stenosis of lumbar region with radiculopathy 724.02 ; Bulging of intervertebral disc between L4 and L5 722.10 ; GERD ( gastroesophageal reflux disease) 530.81 ; Chronic pain 338.29 ; Declining mobility 799.89 and Epigastric pain 789.[address] 90090- 5575 Apr, [address] 53002- 6977 Apr, Nausea 787.02 and Heart burn 787.[address] 09532- 3929 Mar, Lumbago 724.2 ; Vitamin D deficiency 268.9 ; Anxiety 300.00 ; Allergic rhinitis 477.9 and Contraceptive surveillance V25.[address] 53349- 0222 February, 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 ; Chronic pain 338.29 and Vaginal discharge 623.[address] [place] [address]- 4738 February, [facility] [place] [facility] [address] [id number] [place] [address]- 6434 February, [facility] [place] [facility] [address] [id number] [place] [address]- 7414 Jan, [facility] [place] [facility] [address] [id number] [place] [address]- 6605 Jan, [facility] [place] [facility] [address] [id number] [place] [address]- 0611 Dec, [facility] [place] [facility] [address] [id number] [place] [address]- 2074 Dec, [facility] [place] [facility] [address] [id number] [place] [address]- 7457 Dec, [facility] [place] [facility] [address] [id number] [place] [address]- 1622 Dec, [facility] [place] [facility] [address] [id number] [place] [address]- 4629 Dec, [facility] [place] [facility] [address] [id number] [place] [address]- 9071 Dec, [facility] [place] [facility] [address] [id number] [place] [address]- 1787 Dec, [facility] [place] [facility] [address] [id number] [place] [address]- 6618 Dec, [facility] [place] [facility] [address] [id number] [place] [address]- 4172 Dec, [facility] [place] [facility] [address] [id number] [place] [address]- 9988 Dec, [facility] [place] [facility] [address] [id number] [place] [address]- 4736 Dec, [facility] [place] [facility] [address] [id number] [place] 9265 Dec, [facility] [place] [facility] [address] [id number] [place] [address] 2547 Nov, 2014 [facility] [place] [facility] [address] [id number] [place] [address] 2546 Nov, 2014 [facility] [place] [facility] [address] [id number] [place] [address] 2546 24 Nov, 2014 [facility] [place] [facility] [address] [id number] [place] [address] 2546 24 Nov, 2014 [facility] [place] [facility] [address] [id number] [place] [address] 254 Nov, 2014 [facility] [place] [facility] [address] [id number] [place] [address] 2546 23 Nov, 2014 [facility] [place] [facility] [address] [facility] [id number] [place] [address]- 2546 16 Nov, 2014 [facility] [place] [facility] [address] [id number] [place] [address]- 2548 16 Nov, 2014 [facility] [place] [facility] [address] [id number] [place] [address]- 8203 13 Nov, 2014 [facility] [place] [facility] [address] [facility] [id number] [place] [address] 13 Nov, 2014 [facility] [place] [facility] [address] [facility] [id number] [place] [address] 13 Nov, 2014 [facility] [place] [facility] [address] [id number] [place] [address] 13 Nov, 2014 [facility] [place] [facility] [address] [id number] [place] [address] 13 Nov, 2014 [facility] [place] [facility] [address] [id number] [place] [address] 13 Nov, 2014 [facility] [place] [facility] [address] [facility] [id number] [place] [address]- [address] 13 Nov, 2014 [facility] [place] [facility] [address] [id number] [place] [address] 13 Nov, 2014 [facility] [place] [facility] [address] [id number] [place] [address] Nov, 2014 [facility] [place] [facility] [address] [id number] [place] [address] Nov, 2014 [facility] [place] [facility] [address] [id number] [place] [address] Nov, 2014 [facility] [place] [facility] [address] [id number] [place] [address] Nov, 2014 [facility] [place] [facility] [address] [id number] [place] [address] Nov, 2014 [facility] [place] [facility] [address] [facility] [id number] [place] [address]- [address] Nov, 2014 [facility] [place] [facility] [address] [facility] [id number] [place] [address] Nov, 2014 [facility] [place] [facility] [address] [id number] [place] [address] Oct, [facility] [place] [facility] [address] [facility] [id number] [place] [address] Oct, [facility] [place] [facility] [address] [facility] [id number] [place] [address] Oct, [facility] [place] [facility] [address] [address] [id number], [place] [address] Oct, [facility] [place] [facility] [address] [id number] [place] [address] 60[address] Oct, [facility] [place] [facility] [address] [id number] [place] [address]- 8485 Oct, [facility] [place] [facility] [address] [id number] [place] [address]- 0790 Oct, [facility] [place] [facility] [address] [id number], [place] [address] Oct, [facility] [place] [facility] [address] [id number] [place] [address]- 69[address] Oct, [facility] [place] [facility] [address] [id number] [place] [address]- 8107 Oct, [facility] [place] [facility] [address] [id number] [place] [address]- 9755 Oct, [facility] [place] [facility] [address] [id number] [place] [address]- 8707 Oct, [facility] [place] [facility] [address] [id number] [place] [address]- 6883 Oct, [facility] [place] [facility] [address] [id number] [place] [address]- 1737 Oct, [facility] [place] [facility] [address] [id number] [place] [address]- 5837 Oct, [facility] [place] [facility] [address] [id number] [place] [address]- 4466 Oct, [facility] [place] [facility] [address] [id number] [place] [address]- 1018 Oct, [facility] [place] [facility] [address] [id number] [place] [address]- 3173 Oct, [facility] [place] [facility] [address] [id number] [place] [address]- 3844 Oct, [facility] [place] [facility] [address] [id number] [place] [address]- 1748 Oct, [facility] [place] [facility] [address] [id number] [place] [address]- 0258 Oct, [facility] [place] [facility] [address] [id number] [place] [address]- 7325 Sep, [facility] [place] [facility] [address] [id number] [place] [address]- 1720 Sep, [facility] [place] [facility] [address] [id number] [place] [address]- 7956 18 Sep, 2014 [facility] [place] [facility] [address] [id number] [place] [address]- 7966 18 Sep, 2014 [facility] [place] [facility] [address] [id number] [place] [address]- 5056 17 Sep, 2014 [facility] [place] [facility] [address] [id number] [place] [address]- 0156 17 Sep, 2014 [facility] [place] [facility] [address] [id number] [place] [address]- 7052 15 Sep, 2014 [facility] [place] [facility] [address] [id number] [place] [address]- 5560 15 Sep, 2014 [facility] [place] [facility] [address] [id number] [place] [address]- 6261 12 Sep, 2014 [facility] [place] [facility] [address] [id number] [place] [address]- 2813 12 Sep, 2014 [facility] [place] [facility] [address] [id number] [place] [address]- 0740 11 Sep, 2014 [facility] [place] [facility] [address] [id number] [place] [address]- 3486 11 Sep, 2014 [facility] [place] [facility] [address] [id number] [place] [address]- 4282 11 Sep, 2014 [facility] [place] [facility] [address] [id number] [place] [address]- 8106 11 Sep, 2014 [facility] [place] [facility] [address] [id number] [place] [address]- 9713 11 Sep, 2014 [facility] [place] [facility] [address] [id number] [place] [address]- 1596 11 Sep, 2014 [facility] [place] [facility] [address] [id number] [place] [address]- 8326 10 Sep, 2014 [facility] [place] [facility] [address] [id number] [place] [address]- 5109 Sep, [facility] [place] [facility] [address] [id number] [place] [address]- 7761 Sep, [facility] [place] [facility] [address] [id number] [place] [address]- 0655 Sep, [facility] [place] [facility] [address] [id number] [place] [address]- 2463 Aug, [facility] [place] [facility] [address] [id number] [place] [address]- 6896 Aug, [facility] [place] [facility] [address] [id number] [place] [address]- 5448 Aug, [facility] [place] [facility] [address] [id number] [place] [address]- 8079 Aug, [facility] [place] [facility] [address] [id number] [place] [address]- 1320 Aug, [facility] [place] [facility] [address] [id number] [place] [address]- 9811 Aug, [facility] [place] [facility] [address] [id number] [place] [address]- 4338 Aug, [facility] [place] [facility] [address] [id number] [place] [address]- 7276 Aug, [facility] [place] [facility] [address] [id number] [place] [address]- 6972 Aug, [facility] [place] [facility] [address] [id number], [place] [address] 7870 Jul, [facility] [place] [facility] [address] [id number] [place] [address]- 0384 Jul, [facility] [place] [facility] [address] [id number] [place] [address]- 2115 Jul, [facility] [place] [facility] [address] [id number] [place] [address]- 2579 Jul, [facility] [place] [facility] [address] [id number] [place] [address]- 9570 16 Jul, 2013 [facility] [place] [facility] [address] [id number] [place] [address]- 4408 16 Jul, 2013 [facility] [place] [facility] [address] [id number] [place] [address]- 0996 13 Jul, 2013 [facility] [place] [facility] [address] [id number] [place] [address]- 8866 13 Jul, 2013 [facility] [place] [facility] [address] [id number] [place] [address]- 0939 10 Jul, 2013 [facility] [place] [facility] [address] [id number] [place] [address]- 6553 10 Jul, 2013 [facility] [place] [facility] [address] [id number] [place] [address]- 5761 10 Jul, 2013 [facility] [place] [facility] [address] [id number] [place] [address]- 5944 10 Jul, 2013 [facility] [place] [facility] [address] [id number] [place] [address]- 5277 07 Jul, 2013 [facility] [place] [facility] [address] [id number] [place] [address]- 4338 07 Jul, 2013 [facility] [place] [facility] [address] [id number] [place] [address]- 8838 30 Jun, 2013 [facility] [place] [facility] [address] [id number] [place] [address]- 8740 30 Sep, 2013 [facility] [place] [facility] [address] [id number] [place] [address]- 2544 25 Sep, 2013 [facility] [place] [facility] [address] [id number] [place] [address] 2546 25 Sep, 2013 [facility] [place] [facility] [address] [id number] [place] [address]- 2546 25 Jun, 2013 [facility] [place] [facility] [address] [id number] [place] [address]- 0058 25 Jun, 2013 [facility] [place] [facility] [address] [id number] [place] [address]- 6839 24 Sep, 2013 [facility] [place] [facility] [address] [id number] [place] [address] 2546 24 Sep, 2013 [facility] [place] [facility] [address] [id number] [place] [address] 2548 22 Sep, 2013 [facility] [place] [facility] [address] [id number] [place] [address] 2543 22 Sep, 2013 [facility] [place] [facility] [address] [id number] [place] [address] 2543 17 Sep, 2013 [facility] [place] [facility] [address] [id number] [place] [address]- 3037 17 Sep, 2013 [facility] [place] [facility] [address] [id number] [place] [address]- 1852 16 Jun, 2013 [facility] [place] [facility] [address] [id number] [place] [address]- 1351 16 Jun, 2013 [facility] [place] [facility] [address] [id number] [place] [address]- 5629 15 Jun, 2013 [facility] [place] [facility] [address] [id number] [place] [address]- 2545 15 Sep, 2013 [facility] [place] [facility] [address] [id number] [place] [address]- 7825 12 Jun, 2013 [facility] [place] [facility] [address] [id number] [place] [address]- 2541 12 Sep, 2013 [facility] [place] [facility] [address] [id number] [place] [address] 2549 11 Jun, 2013 [facility] [place] [facility] [address] [id number] [place] [address] 2546 11 Sep, 2013 [facility] [place] [facility] [address] [id number] [place] [address]- 2549 11 Sep, 2013 [facility] [place] [facility] [address] [id number] [place] [address]- 8478 Jun, [facility] [place] [facility] [address] [id number] [place] [address]- 7134 Jun, [facility] [place] [facility] [address] [id number] [place] [address]- 1260 Jun, [facility] [place] [facility] [address] [id number] [place] [address]- 8059 Jun, [facility] [place] [facility] [address] [id number] [place] [address]- 8485 Jun, [facility] [place] [facility] [address] [id number] [place] [address]- 9183 May, [facility] [place] [facility] [address] [id number] [place] [address]- 5771 May, [facility] [place] [facility] [address] [id number] [place] [address]- 9522 May, [facility] [place] [facility] [address] [id number] [place] [address]- 8403 May, [facility] [place] [facility] [address] [id number] [place] [address]- 1943 May, [facility] [place] [facility] [address] [id number] [place] [address]- 2607 May, [facility] [place] [facility] [address] [id number] [place] [address]- 1515 May, [facility] [place] [facility] [address] [id number] [place] [address]- 6262 May, [facility] [place] [facility] [address] [id number] [place] [address]- 5386 May, [facility] [place] [facility] [address] [id number] [place] [address]- 0508 May, [facility] [place] [facility] [address] [id number] [place] [address]- 8984 May, [facility] [place] [facility] [address] [id number] [place] [address]- 8387 May, [facility] [address] [id number] [place] [address]- 8295 May, [facility] [place] [facility] [address] [id number] [place] [address]- 8812 Apr, [facility] [place] [facility] [address] [id number] [place] [address]- 8768 Apr, [facility] [place] [facility] [address] [id number] [place] [address]- 1363 Apr, [facility] [place] [facility] [address] [id number] [place] [address]- 9527 Apr, [facility] [place] [facility] [address] [id number] [place] [address]- 9894 Apr, [facility] [address] [id number] [place] [address]- 9251 Mar, [facility] [place] [facility] [address] [id number] [place] [address]- 0850 Mar, [facility] [place] [facility] [address] [id number] [place] [address]- 1923 Mar, [facility] [address] [id number] [place] [address]- 5041 February, [facility] [place] [facility] [address] [id number] [place] [address]- 0446 February, [facility] [place] [facility] [address] [id number] [place] [address]- 6863 February, [facility] [place] [facility] [address] [id number] [place] [address]- 9706 February, [facility] [place] [facility] [address] [id number] [place] [address]- 7299 February, [facility] [place] [facility] [address] [id number] [place] [address]- 5610 February, [facility] [place] [facility] [address] [id number] [place] [address]- 7434 February, [facility] [place] [facility] [address] [id number] [place] [address]- 5240 February, [facility] [place] [facility] [address] [id number] [place] [address]- 2700 February, [facility] [place] [facility] [address] [id number] [place] [address]- 9377 Jan, [facility] [place] [facility] [address] [id number] [place] [address]- 3010 Jan, [facility] [place] [facility] [address] [id number] [place] [address]- 8650 Jan, [facility] [place] [facility] [address] [id number] [place] [address]- 8847 Jan, [facility] [place] [facility] [address] [id number] [place] [address]- 8069 Jan, [facility] [place] [facility] [address] [id number] [place] [address]- 5173 Dec, [facility] [place] [facility] [address] [id number] [place] [address]- 3842 Dec, [facility] [place] [facility] [address] [id number] [place] [address]- 3122 Dec, [facility] [place] [facility] [address] [id number], [place] [address]- 1800 Dec, [facility] [place] [facility] [address] [id number] [place] [address]- 1436 Dec, [facility] [place] [facility] [address] [id number] [place] [address]- 4084 Nov, [facility] [place] [facility] [address] [id number] [place] [address]- 9101 Nov, [facility] [place] [facility] [address] [id number], [place] [address]- 3898 Nov, [facility] [place] [facility] [address] [id number] [place] [address]- 2729 Nov, [facility] [place] [facility] [address] [id number] [place] [address]- 3480 Oct, [facility] [place] [facility] [address] [id number] [place] [address]- 7383 Oct, [facility] [place] [facility] [address] [id number] [place] [address]- 0180 Oct, [facility] [place] [facility] [address] [id number] [place] [address]- 9418 Oct, [facility] [place] [facility] [address] [id number] [place] [address]- 8541 Oct, [facility] [place] [facility] [address] [id number] [place] [address]- 0220 Oct, [facility] [place] [facility] [address] [id number] [place] [address]- 4104 Oct, [facility] [place] [facility] [address] [id number] [place] [address]- 6681 Oct, [facility] [place] [facility] [address] [facility] [id number] [place] [address]- 2744 Oct, [facility] [place] [facility] [address] [id number] [place] [address]- 5566 Oct, [facility] [place] [facility] [address] [id number], [place] [address]- 0871 Aug, [facility] [place] [facility] [address] [id number] [place] [address]- 7898 Aug, [facility] [place] [facility] [address] [facility] [id number] [place] [address]- 0535 Jul, [facility] [place] [facility] [address] [facility] [id number], [place] [address]- 3902 Jul, [facility] [place] [facility] [address] [id number] [place] [address]- 5303 Jul, [facility] [address] [id number] [place] [address]- 2561 Jul, [facility] [place] [facility] [address] [id number] [place] [address]- 2056 Jul, [facility] [place] [facility] [address] [id number] [place] [address]- 6397 Jul, [facility] [place] [facility] [address] [id number] [place] [address]- 3319 Apr, [facility] [place] [facility] [address] [id number] [place] [address]- 8905 Dec, [facility] [address] [id number] [place] [address]- 7620 Nov, [facility] [place] [facility] [address] [id number] [place] [address]- 9235 Nov, [facility] [address] [id number] [place] [address]- 5865 Nov, [facility] [address] [facility] [id number] [place] [address]- 2348 Oct, [facility] [address] [id number] [place] [address]- 1581 Sep, [facility] [place] [facility] [address] [id number] [place] [address]- 7735 Sep, [facility] [place] [facility] [address] [id number] [place] [address]- 2474 Sep, [facility] [place] [facility] [address] [id number] [place] [address]- 9919 Sep, [facility] [place] [facility] [address] [id number] [place] [address]- 0441 Aug, [facility] [place] [facility] [address] [id number] [place] [address]- 6671 Aug, [facility] [place] [facility] [address] [id number] [place] [address]- 2616 Jul, [facility] [place] [facility] [address] [id number] [place]46 Jul, [facility] [place] [facility] [address] [id number] [place] [address]- 4806 28 Jun, 2012 [facility] [place] [facility] [address] [id number] [place] [address]- 0907 26 Jun, 2012 [facility] [place] [facility] [address] [id number] [place] [address]- 1644 24 Jun, 2012 [facility] [place] [facility] [address] [id number] [place] [address]- 9566 24 Jun, 2012 [facility] [place] [facility] [address] [id number] [place] [address]- 5450 Jun, [facility] [place] [facility] [address] [id number] [place] [address]- 9235 31 Apr, 2012 [facility] [place] [facility] [address] [id number] [place] [address]- 0487 30 Apr, 2012 [facility] [place] [facility] [address] [id number] [place] [address]- 5917 Apr, [facility] [place] [facility] [address] [id number] [place] [address]- 7967 Mar, [facility] [place] [facility] [address] [id number] [place] [address]- 3406 Mar, [facility] [place] [facility] [address] [id number] [place] [address]- 1107 Mar, [facility] [place] [facility] [address] [id number] [place] [address]245 February, [facility] [place] [facility] [address] [id number] [place] [address]- 0160 Jan, [facility] [place] [facility] [address] [id number] [place] [address]- 5304 Dec, [facility] [address] [id number] [place] [address]- 4336 Dec, [facility] [place] [facility] [address] [id number] [place] [address]- 9214 20 Dec, 2011 [facility] [address] [id number] [place] [address]- 5122 19 Dec, 2011 [facility] [place] [facility] [address] [id number] [place] [address]- 7053 Dec, [facility] [address] [id number] [place] [address]- 2203 14 Nov, 2011 [facility] [place] [facility] [address] [id number] [place] [address]- 6931 13 Nov, 2011 [facility] [place] [facility] [address] [id number] [place] [address] Oct, [facility] [address] [id number] [place] [address] Oct, [facility] [address] [id number] [place] [address] Oct, [facility] [address] [id number] [place] [address] Sep, [facility] [place] [facility] [address] [id number] [place] [address] Aug, [facility] [place] [facility] [address] [id number] [place] [address] Aug, [facility] [place] [facility] [address] [id number] [place] [address] Jul, [facility] [place] [facility] [address] [id number] [place] [address] Jul, [facility] [place] [facility] [address] [id number] [place] [address] 19 Jul, 2011 [facility] [place] [facility] [address] [id number] [place] [address] 13 Jan, 2011 [facility] [place] [facility] [address] [id number] [place] [address] 29 Sep, 2010 [facility] [place] [facility] [address] [id number] [place] [address] 27 Sep, 2010 [facility] [place] [facility] [address] [id number] [place] [address] Sep, [facility] [place] [facility] [address] [id number] [place] [address] Sep, [facility] [place] [facility] [address] [id number] [place] [address] 06 Sep, 2010 [facility] [place] [facility] [address] [id number] [place] [address] Aug, [facility] [place] [facility] [address] [id number] [place] [address] 16 Aug, 2010 [facility] [place] [facility] [address] [id number] [place] [address] 08 Aug, 2010 [facility] [place] [facility] [address] [id number], [place] [address] Jul, [facility] [place] [facility] [address] [id number], [place] [address] Jul, [facility] [place] [facility] [address] [id number], [place] [address] Jul, [facility] [place] [facility] [address] [id number] [place] [address] 11 May, 2010 [facility] [place] [facility] [address] [id number], [place] [address] 13 Apr, 2010 [facility] [place] [facility] [address] [id number] [place] [address] 18 Dec, 2009 [facility] [place] [facility] [address] [facility] [id number] [place] [address] Sep, [facility] [address] [facility] [id number], [place] [address] Sep, [facility] [address] [facility] [id number], [place] [address] Aug, [facility] [address] [facility] [id number], [place] [address] Aug, [facility] [address] [id number], [place] [address] Jul, [facility] [address] [facility] [id number], [place] [address] Mar, IMMUNIZATIONS No Known Immunizations SOCIAL HISTORY Never Assessed REASON FOR VISIT controlled medication refill 11/29 PLAN OF CARE VITAL SIGNS MEDICATIONS Medication Instructions Dosage Frequency Start Date End Date Duration Status Amlodipine Besylate 5 mg Orally Once a day 1 tablet 24h 30 days Active Nabumetone 500 mg Orally Twice a day 1 tablet 12h 90 Active Glimepiride 2 MG Orally twice a day 1 tablet 12h 90 Active MS Contin 15 MG Orally every 12 hrs as needed must last 28 days 1 tablet Nov, Active Lyrica 150 MG Orally Three times a day 1 capsule 8h Active Robaxin 500 MG Orally 3 times a day 1 tablet 8h 28 Active Clorazepate Dipotassium 15 MG Orally 3 times a day prn must last 28 days. 1 tablet 28 Active Hydrocodone-Acetaminophen 5-325 MG Orally four times a day as needed for pain. Must last 28 days. 1 tablet Nov, Active RESULTS No Results PROCEDURES No Known [...]
--- OUTSIDE RECORDS SUMMARY | 2018-10-08 20:18 | XMS REPORT ---
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 109679995 Problem Edema of both feet R60.0 Active 839411854 Problem Tobacco abuse Z72.0 Active 21750643 Problem Chronic migraine G43.709 Active 63954279 Problem Mixed hyperlipidemia E78.2 Active 724890682 Problem Spinal stenosis, lumbar region M48.06 Active 41425488 Problem Anxiety F41.9 Active 77495761 Problem Radiculopathy of lumbar region M54.16 Active 982222628 Problem Bulging lumbar disc M51.26 Active 853407974 Problem Asthma J45.909 Active 349764748 Problem Essential hypertension I10 Active 92362110 ALLERGIES No Information ENCOUNTERS Encounter Location Date Diagnosis [facility] [place] [id number] [place] [address] 03115- 1571 Jan, Chronic pain G89.29 [facility] [place] [id number] [place] [address] 64208- 1119 Jan, 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 [facility] [place] [id number] [place] [address] 91601- 7415 Jan, Encounter for Depo-Provera contraception Z30.42 [facility] [place] [id number] [place] [address] 70850- 8780 Jan, [facility] [place] [id number] [place] [address] 63693- 2096 Jan, Chronic pain G89.29 and Anxiety F41.9 [place] [id number] [place] [address] 86124- 6366 Jan, [place] [id number] [place] [address] 61847- 4708 Dec, [place] [id number] [place] [address] 24643- 7694 14 Dec, 2017 Gastroesophageal reflux disease without esophagitis K21.9 and Anxiety F41.9 [place] [id number] [place] [address] 89811- 2749 Dec, Essential hypertension I10 ; Mixed hyperlipidemia E78.2 ; Type 2 diabetes mellitus with diabetic neuropathy, unspecified E11.40 ; care home 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 Z79.4 ; Chronic pain G89.29 ; HSV (herpes simplex virus) infection B00.9 ; Anxiety F41.9 and Gastroesophageal reflux disease without esophagitis K21.9 [place] [id number] [place] [address] 42939- 8560 Dec, Chronic pain G89.29 and Chronic migraine G43.709 [facility] [id number] [place] [address] 13016- 6870 Nov, [place] [id number] [place] [address] 10719- 3521 Nov, Essential hypertension I10 and Chronic pain G89.29 [place] [place] [id number] [place] [address] 40000- 0650 05 Nov, 2017 Chronic pain G89.29 ; Essential hypertension I10 and Type 2 diabetes mellitus without complication E11.9 [place] [id number] [place] [address] 05226- 1214 Oct, Chronic pain G89.29 [facility] [place] [id number] [place] [address] 00245- 8698 Oct, [place] [id number] [place] [address] 56924- 2338 Sep, Type 2 diabetes mellitus without complication E11.9 ; Essential hypertension I10 ; 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 Z79.4 ; Chronic migraine G43.709 ; Chronic pain G89.29 and Acute non-recurrent maxillary sinusitis J01.00 [place] [id number] [place] [address] 97665- 8753 19 Sep, 2017 Encounter for Depo-Provera contraception Z30.42 [place] [address] 89649- 4574 Sep, Chronic pain G89.29 and Radiculopathy of lumbar region M54.16 [place] [id number] [place] [address] 11959- 4697 Sep, [place] [id number] [place] [address] 05806- 7130 Sep, [place] [id number] [place] [address] 37747- 6609 Aug, Type 2 diabetes mellitus without complication E11.9 [place] [id number] [place] [address] 17666- 8098 Aug, [place] [id number] [place] [address] 06773- 5357 Aug, Radiculopathy of lumbar region M54.16 and Chronic pain G89.29 [place] [id number] [place] [address] 86584- 9084 09 Aug, 2017 Type 2 diabetes mellitus without complication E11.9 [facility] [id number] [place] [address] 22261- 7408 02 Aug, 2017 Type 2 diabetes mellitus without complication E11.9 [place] [id number] [place] [address] 88285- 5065 Jul, Type 2 diabetes mellitus without complication E11.9 [facility] [place] [address] [address] 5804 Jul, [facility] [place] [id number] [place] [address] 64817- 8513 Jul, Chronic pain G89.29 [facility] [place] [id number] [place] [address] 66001- 1289 Jul, [facility] [place] [id number] [place] [address] 06487- 2119 Jul, [facility] [place] [address] [place] [address] 75744- 2752 Jul, Type 2 diabetes mellitus without complication E11.9 [facility] [place] [id number] [place] [address] 33266- 0703 Jul, [facility] [place] [id number] [place] [address] 40251- 6066 Jul, Type 2 diabetes mellitus without complication E11.9 [facility] [place] [id number] [place] [address] 49233- 1529 Jul, [facility] [place] [id number] [place] [address] 07480- 2199 Jul, [facility] [place] [address] [place] [address] 81017- 2984 Jul, [facility] [place] [id number] [place] [address] 10402- 2534 Jun, Type 2 diabetes mellitus without complication E11.9 [facility] [place] [address] [place] [address] 03430- 7498 Jun, Chronic migraine G43.709 ; Type 2 diabetes mellitus without complication E11.9 ; Calculus of right kidney N20.0 ; Yeast dermatitis B37.2 and HSV (herpes simplex virus) infection B00.9 [facility] [place] [id number] [place] [address] 27703- 0172 Jun, Type 2 diabetes mellitus without complication E11.9 [facility] [place] [id number] [place] [address] 73281- 6250 Jun, [facility] [place] [address] [place] [address] 81068- 7113 Jun, Radiculopathy of lumbar region M54.16 and Chronic pain G89.29 [place] [address] 74864- 1506 Jun, Encounter for Depo-Provera contraception Z30.42 [place] [address] 62792- 4996 Jun, Type 2 diabetes mellitus without complication E11.9 [place] [id number] [place] [address] 38588- 2038 Jun, [facility] [address] 63176 -9450 May, Acute nasopharyngitis (common cold) J00 [place] [id number] [place] [address] 33463- 0027 May, Chronic pain G89.29 [place] [id number] [place] [address] 99022- 8571 May, Headache following lumbar puncture G97.1 [place] [address] [place] [address] 93628- 7769 May, Radiculopathy of lumbar region M54.16 [place] [id number] [place] [address] 82299- 1734 Apr, [place] [address] [place] [address] 78773- 5751 Apr, Type 2 diabetes mellitus without complication E11.9 ; Chronic pain G89.29 ; Essential hypertension I10 ; Radiculopathy of lumbar region M54.16 ; Spinal stenosis, lumbar region M48.06 ; Gastroesophageal reflux disease without esophagitis K21.9 ; HSV (herpes simplex virus) infection B00.9 ; Mixed hyperlipidemia E78.2 ; Anxiety F41.9 and Asthma J45.[address] 14675- 1308 Apr, Encounter for Depo-Provera contraception Z30.[address] 76780- 7245 Apr, Chronic pain G89.29 and Anxiety F41.[address] 34463- 9052 Mar, [address] 49230- 6819 Mar, [address] 87534- 1051 Mar, Mixed hyperlipidemia E78.[address] 55356- 2427 Mar, Type 2 diabetes mellitus without complication E11.9 ; Chronic pain G89.29 ; Essential hypertension I10 ; Radiculopathy of lumbar region M54.16 ; Spinal stenosis, lumbar region M48.06 ; Gastroesophageal reflux disease without esophagitis K21.9 ; HSV (herpes simplex virus) infection B00.9 ; Mixed hyperlipidemia E78.2 and Anxiety F41.9 [place] [id number] [place] [address] 99287- 0976 Mar, [place] [id number] [place] [address] 47293- 1451 Mar, [address] 57522- 7927 Mar, [place] [id number] [place] [address] 72405- 4197 February, Chronic pain G89.[address] 42295- 8286 February, [place] [address] [address]- 8189 Jan, Chronic pain G89.29 [place] [address] [address]- 5717 Jan, Type 2 diabetes mellitus without complication E11.9 [place] [address] [place] [address] 91316- 0709 Jan, [place] [address] [place] [address] 26825- 9475 Jan, [place] [address] [place] [address] 24674- 7463 Jan, [place] [address] [place] [address] 99671- 6876 Jan, Type 2 diabetes mellitus without complication [...] J01.00 and Encounter for Depo-Provera contraception Z30.42 [place] [address] [address]- 2892 Dec, Chronic pain G89.29 [place] [address] [address]- 3576 Dec, Abnormal ankle brachial index (BERNARDINO) R68.89 [place] [address] [address]- 2804 Dec, [place] [address] [address]- 2847 Dec, Routine gynecological examination Z01.419 ; Chronic [...] virus) infection B00.9 and Allergic rhinitis 477.9 [place] [id number] [place] [address] 48416- 1823 Nov, Chronic pain G89.29 [place] [address] [place] [address] 48103- 3548 Nov, Chronic pain G89.29 ; Encounter for [...] mucoid otitis media of both ears H65.113 [place] [address] [place] [address] 41213- 6910 Oct, [place] [address] [place] [address] 69996- 0126 Oct, Chronic pain G89.29 [place] [address] [place] [address] 75814- 1185 Oct, Chronic pain G89.29 [place] [address] [place] [address] 65018- 1229 Sep, Chronic pain G89.29 ; Type 2 diabetes mellitus without complication E11.9 ; Essential hypertension I10 ; Radiculopathy of lumbar region M54.16 ; Spinal stenosis, lumbar region M48.06 ; Gastroesophageal reflux disease without esophagitis K21.9 ; Encounter for surveillance of injectable contraceptive Z30.42 ; Bilateral cold feet R20.9 ; Pain of left foot M79.672 and Pain in right foot M79.671 [facility] [place] [id number] [place] [address] 33188- 7762 05 Sep, 2016 [facility] [place] [address] 86860- 5264 Aug, [facility] [place] [id number] [place] [address] 44678- 0916 16 Aug, 2016 [facility] [place] [address] 66188- 4542 Aug, Chronic pain G89.29 ; Type 2 diabetes mellitus without complication E11.9 ; Essential hypertension I10 ; Rash and nonspecific skin eruption R21 and Upper respiratory infection, acute J06.9 [place] [address] 43028- 6375 08 Aug, 2016 [place] [address] 22912- 1279 Aug, [facility] [place] [address] 40899- 0542 Jul, [facility] [place] [id number] [place] [address] 49870- 5974 05 Jul, 2016 Dysuria R30.0 ; Encounter for Depo-Provera contraception Z30.42 ; Herpes simplex B00.9 ; Nausea & vomiting R11.2 and Asthma J45.909 [place] [address] [place] [address] 26020- 4495 Jun, Dysuria R30.0 [facility] [place] [address] [place] [address] 95230- 6801 19 Jun, 2016 Dysuria R30.0 [facility] [place] [address] 38916- 5926 15 Jun, 2016 [facility] [place] [address] [place] [address] 50033- 4061 13 Jun, 2016 [facility] [place] [address] 26639- 3780 May, [place] [address] [place] [address] 26245- 7683 May, [address] 46870- 4100 May, Chronic pain G89.29 ; Essential hypertension I10 ; Type 2 diabetes mellitus without complication E11.9 ; Edema of both feet R60.0 and Rash and nonspecific skin eruption R21 [address] 54026- 9037 Apr, [place] [id number] [place] [address] 48224- 9266 Mar, Carpal tunnel syndrome, left upper limb G56.02 and Carpal tunnel syndrome, right upper limb G56.[address] 58964- 1544 Mar, [address] 91699- 9217 Mar, Encounter for Depo-Provera contraception Z30.[address] 08877- 5005 February, [place] [id number] [place] [address] 45662- 5349 February, [place] [id number] [place] [address] 64000- 3376 February, Chronic pain G89.29 ; Essential hypertension I10 ; Type 2 diabetes mellitus without complication E11.9 ; HSV (herpes simplex virus) infection B00.9 ; Anxiety F41.9 ; Hypersomnia G47.10 ; Tobacco abuse Z72.0 ; Hand pain, left M79.642 ; Hand pain, right M79.641 ; Left foot pain M79.672 and Heart palpitations R00.2 [place] [id number] [place] [address] 42671- 7141 Jan, [address] [place] [address] 25487- 0405 Jan, [place] [address] 24703- 9683 Jan, [place] [address] 40842- 2916 Jan, [place] [address] 92105- 5294 Jan, Upper respiratory infection J06.9 and Type 2 diabetes mellitus without complication E11.9 [place] [address] 52380- 7646 Dec, [place] [address] 41590- 2379 Dec, Chronic pain G89.29 ; Essential hypertension I10 ; Type 2 diabetes mellitus without complication E11.9 ; HSV (herpes simplex virus) infection B00.9 ; Anxiety F41.9 ; Upper respiratory infection J06.9 ; Hypersomnia G47.10 and Tobacco abuse Z72.0 [place] [address] [place] [address] 91850- 8986 Dec, Encounter for Depo-Provera contraception Z30.42 [place] [address] 84910- 6462 Dec, [place] [address] 36082- 1019 Dec, Chronic pain G89.29 ; Sinusitis J32.9 ; Snoring R06.83 and Daytime hypersomnia G47.19 [place] [address] [place] [address] 91259- 1821 Nov, HSV (herpes simplex virus) infection B00.9 ; Encounter for Papanicolaou smear for cervical cancer screening Z12.4 ; Screening for STD sexually transmitted disease Z11.3 and Bartholin's gland cyst N75.0 [place] [address] 35965- 1251 Nov, [facility] [place] [address] [place] [address] 84292- 2909 Nov, [place] [address] [place] [address] 64960- 4050 Nov, Essential hypertension I10 ; Type 2 diabetes mellitus without complication E11.9 ; HSV (herpes simplex virus) infection B00.9 ; Spinal stenosis, lumbar region M48.06 and Vaginal yeast infection B37.3 [place] [address] [place] [address] 31611- 2382 Nov, [place] [address] [place] [address] 04337- 6988 Nov, [place] [address] [place] [address] 17617- 8184 Oct, [place] [address] [place] [address] 60167- 6382 Oct, HSV (herpes simplex virus) infection B00.9 ; Yeast infection B37.9 ; Change in bowel habit R19.4 ; Nausea & vomiting R11.2 and Gastroesophageal reflux disease without esophagitis K21.9 [place] [address] [place] [address] 93389- 1358 Oct, [place] [address] [place] [address] 58230- 8654 Oct, Type 2 diabetes mellitus without complication E11.9 ; Essential hypertension I10 and Acute maxillary sinusitis, recurrence not specified J01.00 [place] [address] [place] [address] 16672- 1439 Oct, [place] [address] [place] [address] 46571- 9027 Oct, [place] [address] [place] [address] 10558- 7992 Oct, Exposure to head lice Z20.7 ; Blood glucose abnormal R73.09 ; Boil of buttock L02.32 and Type 2 diabetes mellitus without complication E11.9 [place] [address] [place] [address] 02398- 1697 Oct, [place] [address] 04417- 2651 Sep, [address] 84663- 4529 Sep, [place] [address] 51228- 7545 Aug, Encounter for Depo-Provera contraception Z30.[address] 80155- 3749 Aug, Anxiety F41.9 ; Spinal stenosis, lumbar region M48.06 ; Radiculopathy of lumbar region M54.16 ; Asthma J45.909 ; GERD (gastroesophageal reflux disease) K21.9 ; Essential hypertension I10 and Long-term use of high- risk medication Z79.899 [place] [address] 02513- 8706 Jul, [address] 62747- 0529 Jun, Hemorrhoid 455.[address] 18896- 7407 Jun, [place] [address] 44225- 2042 Jun, Anxiety 300.00 ; Asthma 493.90 ; Hyperhidrosis 705.21 ; Chest discomfort 786.59 and Upper respiratory infection 465.9 [place] [address] 69380- 5397 May, Encounter for Depo-Provera contraception V25.[address] 64471- 3425 May, [place] [id number] [place] [address] 77102- 7776 May, [place] [address] 91721- 1094 May, Spinal stenosis of lumbar region with radiculopathy 724.02 ; Bulging of intervertebral disc between L4 and L5 722.10 ; GERD ( gastroesophageal reflux disease) 530.81 ; Chronic pain 338.29 ; Declining mobility 799.89 and Epigastric pain 789.06 [place] [address] 21545- 0105 Apr, [place] [address] 57921- 1149 Apr, Nausea 787.02 and Heart burn 787.[address] 71966- 8637 Mar, Lumbago 724.2 ; Vitamin D deficiency 268.9 ; Anxiety 300.00 ; Allergic rhinitis 477.9 and Contraceptive surveillance V25.40 [place] [address] [place] [address] [place] [address] 49171- 4299 February, 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 ; Chronic pain 338.29 and Vaginal discharge 623.5 [place] [address] [place] [address] [address] [place] [address] 69202- 8625 February, [place] [address] 87414- 3299 February, [place] [address] [id number] [place] [address] 38552- 5035 Jan, [place] [address] 45384- 1975 Jan, [place] [address] [place] [id number] [place] [address] [id number]- 2592 Dec, [place] [address] 78059- 1929 Dec, [facility] [place] [facility] [address] [id number] [place] [address]- 6699 Dec, [facility] [place] [facility] [address] [id number] [place] [address]- 5962 Dec, [facility] [place] [facility] [address] [id number] [place] [address]- 1508 18 Dec, 2014 [facility] [place] [facility] [address] [id number] [place] [address]- 9906 18 Dec, 2014 [facility] [place] [facility] [address] [id number] [place] [address]- 3059 Dec, [facility] [place] [facility] [address] [id number] [place] [address]- 2154 Dec, [facility] [place] [facility] [address] [facility] [id number] [place] [address] Dec, [facility] [place] [facility] [address] [id number] [place] [address] Dec, [facility] [place] [facility] [address] [id number] [place] [address] Dec, [facility] [place] [facility] [address] [facility] [id number] [place] [address] Dec, [facility] [place] [facility] [address] [id number] [place] [address] Nov, 2014 [facility] [place] [facility] [address] [id number] [place] [address] Nov, [facility] [place] [facility] [address] [id number] [place] [address] Nov, [facility] [place] [facility] [address] [id number] [place] [address] Nov, [facility] [place] [facility] [address] [id number] [place] [address] Nov, [facility] [place] [facility] [address] [id number] [place] [address] 23 Nov, 2014 [facility] [place] [facility] [address] [id number] [place] [address] 16 Nov, 2014 [facility] [place] [facility] [address] [id number] [place] [address] 16 Nov, 2014 [facility] [place] [facility] [address] [id number] [place] [address] 13 Nov, 2014 [facility] [place] [facility] [address] [id number] [place] [address] 13 Nov, 2014 [facility] [place] [facility] [address] [id number] [place] [address] 13 Nov, 2014 [facility] [place] [facility] [address] [facility] [id number] [place] [address] 13 Nov, 2014 [facility] [place] [facility] [address] [facility] [id number] [place] [address] 13 Nov, 2014 [facility] [place] [facility] [address] [facility] [id number] [place] [address]- [address] 13 Nov, 2014 [facility] [place] [facility] [address] [facility] [id number] [place] [address] 13 Nov, 2014 [facility] [place] [facility] [address] [facility] [id number] [place] [address] 13 Nov, 2014 [facility] [place] [facility] [address] [facility] [id number] [place] [address] 10 Nov, 2014 [facility] [place] [facility] [address] [facility] [id number] [place] [address] 2547 10 Nov, 2014 [facility] [place] [facility] [address] [facility] [id number] [place] [address] 0558 09 Nov, 2014 [facility] [place] [facility] [address] [facility] [id number] [place] [address]- 2548 09 Nov, 2014 [facility] [place] [facility] [address] [id number] [place] [address] 3999 Nov, [facility] [place] [facility] [address] [id number] [place] [address] 3339 Nov, [facility] [place] [facility] [address] [id number] [place] [address]- 1046 Nov, [facility] [place] [facility] [address] [id number] [place] [address]- 8346 Oct, [facility] [place] [facility] [address] [id number] [place] [address]- 2423 Oct, [facility] [place] [facility] [address] [id number] [place] [address]- 9443 Oct, [facility] [place] [facility] [address] [id number] [place] [address] 5363 Oct, [facility] [place] [facility] [address] [id number] [place] [address]- 7063 Oct, [facility] [place] [facility] [address] [id number] [place] [address]- 5017 Oct, [facility] [place] [facility] [address] [id number] [place] [address]- 4624 Oct, [facility] [place] [facility] [address] [id number] [place] [address]- 8597 Oct, [facility] [place] [facility] [address] [id number] [place] [address]- 3437 Oct, [facility] [place] [facility] [address] [id number] [place] [address]- 7436 Oct, [facility] [place] [facility] [address] [id number] [place] [address]- 4295 Oct, [facility] [place] [facility] [address] [id number] [place] [address]- 8672 Oct, [facility] [place] [facility] [address] [id number] [place] [address]- 8310 Oct, [facility] [place] [facility] [address] [id number] [place] [address]- 3381 15 Oct, 2014 [facility] [place] [facility] [address] [id number] [place] [address]- 0288 15 Oct, 2014 [facility] [place] [facility] [address] [id number] [place] [address]- 6496 Oct, [facility] [place] [facility] [address] [id number] [place] [address]- 1041 Oct, [facility] [place] [facility] [address] [id number] [place] [address]- 7728 Oct, [facility] [place] [facility] [address] [id number] [place] [address]- 4437 Oct, [facility] [place] [facility] [address] [id number] [place] [address]- 6028 Oct, [facility] [place] [facility] [address] [id number] [place] [address]- 5434 Oct, [facility] [place] [facility] [address] [id number] [place] [address]- 9856 29 Sep, 2014 [facility] [place] [facility] [address] [id number] [place] [address]- 8861 29 Sep, 2014 [facility] [place] [facility] [address] [id number] [place] [address]- 5667 18 Sep, 2014 [facility] [place] [facility] [address] [id number] [place] [address] 8[address] 18 Sep, 2014 [facility] [place] [facility] [address] [id number] [place] [address]- 8460 17 Sep, 2014 [facility] [place] [facility] [address] [id number] [place] [address]- 2601 17 Sep, 2014 [facility] [place] [facility] [address] [id number] [place] [address]- 2732 15 Sep, 2014 [facility] [place] [facility] [address] [id number] [place] [address]- 6435 15 Sep, 2014 [facility] [address] [id number] [place] [address]- 0788 12 Sep, 2014 [facility] [place] [facility] [address] [id number] [place] [address]- 3699 12 Sep, 2014 [facility] [address] [id number] [place] [address]- 4585 11 Sep, 2014 [facility] [place] [facility] [address] [id number] [place] [address]- 2371 Sep, [facility] [place] [facility] [address] [id number] [place] [address]- 4929 Sep, [facility] [place] [facility] [address] [id number] [place] [address]- 5047 Sep, [facility] [address] [id number] [place] [address]- 6453 Sep, [facility] [place] [facility] [address] [id number] [place] [address]- 6904 Sep, [facility] [place] [facility] [address] [id number] [place] [address]- 3870 Sep, [facility] [place] [facility] [address] [id number] [place] [address]- 0586 Sep, [facility] [place] [facility] [address] [id number] [place] [address]- 3086 Sep, [facility] [place] [facility] [address] [id number] [place] [address]- 0959 Sep, [facility] [place] [facility] [address] [id number] [place] [address]- 9868 Aug, [facility] [place] [facility] [address] [id number] [place] [address]- 9565 Aug, [facility] [place] [facility] [address] [id number] [place] [address]- 3779 Aug, [facility] [place] [facility] [address] [id number] [place] [address]- 0736 Aug, [facility] [place] [facility] [address] [id number] [place] [address]- 6795 Aug, [facility] [place] [facility] [address] [id number] [place] [address]- 6723 Aug, [facility] [place] [facility] [address] [id number] [place] [address]- 0873 Aug, [facility] [place] [facility] [address] [id number] [place] [address]- 6843 Aug, [facility] [place] [facility] [address] [id number] [place] [address]- 0167 Aug, [facility] [place] [facility] [address] [id number] [place] [address]- 9607 Jul, [facility] [place] [facility] [address] [id number] [place] [address]- 1958 Jul, [facility] [place] [facility] [address] [id number] [place] [address]- 3084 Jul, [facility] [place] [facility] [address] [id number] [place] [address]- 2863 Jul, [facility] [place] [facility] [address] [id number] [place] [address]- 0669 Jul, [facility] [place] [facility] [address] [id number] [place] [address]- 0544 16 Jul, 2014 [facility] [place] [facility] [address] [id number] [place] [address]- 6996 Jul, [facility] [place] [facility] [address] [id number] [place] [address]- 1832 Jul, [facility] [place] [facility] [address] [id number] [place] [address]- 3117 Jul, [facility] [place] [facility] [address] [id number] [place] [address]- 1693 10 Jul, 2014 [facility] [place] [facility] [address] [id number] [place] [address]- 0462 10 Jul, 2014 [facility] [place] [facility] [address] [id number] [place] [address]- 0669 10 Jul, 2014 [facility] [place] [facility] [address] [id number] [place] [address]- 2038 07 Jul, 2014 [facility] [place] [facility] [address] [id number] [place] [address]- 0524 07 Jul, 2014 [facility] [place] [facility] [address] [id number] [place] [address]- 2604 30 Jun, 2013 [facility] [place] [facility] [address] [id number] [place] [address]- 1003 30 Jun, 2013 [facility] [place] [facility] [address] [id number] [place] [address]- 5526 25 Jun, 2013 [facility] [place] [facility] [address] [id number] [place] [address]- 6202 25 Jun, 2013 [facility] [place] [facility] [address] [id number] [place] [address] 2545 25 Jun, 2013 [facility] [place] [facility] [address] [id number] [place] [address]- 2544 25 Jun, 2013 [facility] [place] [facility] [address] [id number] [place] [address] 2548 24 Sep, 2013 [facility] [place] [facility] [address] [id number] [place] [address]- 2542 24 Sep, 2013 [facility] [place] [facility] [address] [id number] [place] [address] 2549 22 Sep, 2013 [facility] [place] [facility] [address] [id number] [place] [address]- 2549 22 Sep, 2013 [facility] [place] [facility] [address] [id number] [place] [address]- 2542 17 Sep, 2013 [facility] [place] [facility] [address] [id number] [place] [address]- 1231 17 Sep, 2013 [facility] [place] [facility] [address] [id number] [place] [address] 2546 16 Sep, 2013 [facility] [place] [facility] [address] [id number] [place] [address]- 2546 16 Jun, 2013 [facility] [place] [facility] [address] [id number] [place] [address] 2546 15 Jun, 2013 [facility] [place] [facility] [address] [id number] [place] [address]- 2547 15 Jun, 2013 [facility] [place] [facility] [address] [id number] [place] [address]- 1635 12 Jun, 2013 [facility] [place] [facility] [address] [id number] [place] [address]- 5245 12 Jun, 2013 [facility] [place] [facility] [address] [id number] [place] [address]- 2542 11 Jun, 2013 [facility] [place] [facility] [address] [id number] [place] [address]- 2540 11 Jun, 2013 [facility] [place] [facility] [address] [id number] [place] [address] 2541 11 Jun, 2013 [facility] [place] [facility] [address] [id number] [place] [address]- 2921 11 Jun, 2013 [facility] [place] [facility] [address] [id number] [place] [address]- 2545 09 Jun, 2013 [facility] [place] [facility] [address] [id number] [place] [address] 2544 09 Jun, 2013 [facility] [place] [facility] [address] [id number] [place] [address]- 254 03 Jun, 2013 [facility] [place] [facility] [address] [id number] [place] [address]- 2546 03 Jun, 2013 [facility] [place] [facility] [address] [id number] [place] [address]- 7493 May, [facility] [place] [facility] [address] [id number] [place] [address]- 8849 May, [facility] [place] [facility] [address] [id number] [place] [address]- 8616 May, [facility] [place] [facility] [address] [id number] [place] [address]- 7791 May, [facility] [place] [facility] [address] [id number] [place] [address]- 0182 May, [facility] [place] [facility] [address] [id number] [place] [address]- 7028 May, [facility] [place] [facility] [address] [id number] [place] [address]- 1603 May, [facility] [place] [facility] [address] [id number] [place] [address]- 9878 May, [facility] [place] [facility] [address] [id number] [place] [address]- 7226 May, [facility] [place] [facility] [address] [id number] [place] [address]- 2731 May, [facility] [place] [facility] [address] [id number] [place] [address]- 9520 May, [facility] [place] [facility] [address] [id number] [place] [address]- 4339 May, [facility] [place] [facility] [address] [id number] [place] [address]- 1956 May, [facility] [place] [facility] [address] [id number] [place] [address]- 8282 Apr, [facility] [place] [facility] [address] [id number] [place] [address]- 6454 Apr, [facility] [place] [facility] [address] [id number] [place] [address]- 2767 Apr, [facility] [place] [facility] [address] [id number] [place] [address]- 9077 Apr, [facility] [place] [facility] [address] [id number] [place] [address]- 4021 Apr, [facility] [place] [facility] [address] [id number] [place] [address]- 9481 Mar, [facility] [place] [facility] [address] [id number] [place] [address]- 4863 Mar, [facility] [place] [facility] [address] [id number] [place] [address]- 8119 Mar, [facility] [place] [facility] [address] [id number] [place] [address]- 4056 February, [facility] [place] [facility] [address] [id number] [place] [address]- 9436 February, [facility] [place] [facility] [address] [id number] [place] [address]- 8678 February, [facility] [place] [facility] [address] [id number] [place] [address]- 0761 February, [facility] [place] [facility] [address] [id number] [place] [address]- 8953 February, [facility] [place] [facility] [address] [id number] [place] [address]- 2317 February, [facility] [place] [facility] [address] [id number] [place] [address]- 1339 February, [facility] [place] [facility] [address] [id number] [place] [address]- 0299 February, [facility] [place] [facility] [address] [id number] [place] [address]- 0307 February, [facility] [place] [facility] [address] [id number] [place] [address]- 6532 Jan, [facility] [place] [facility] [address] [id number] [place] [address]- 9212 Jan, [facility] [place] [facility] [address] [id number] [place] [address]- 1600 Jan, [facility] [place] [facility] [address] [id number] [place] [address]- 4012 Jan, [facility] [place] [facility] [address] [id number] [place] [address]- 5897 Jan, [facility] [place] [facility] [address] [id number] [place] [address]- 8730 Dec, [facility] [place] [facility] [address] [id number] [place] [address]- 3698 Dec, [facility] [place] [facility] [address] [id number] [place] [address]- 9836 Dec, [facility] [place] [facility] [address] [id number] [place] [address]- 4347 Dec, [facility] [place] [facility] [address] [id number] [place] [address]- 6507 Dec, [facility] [place] [facility] [address] [id number] [place] [address]- 9781 Nov, [facility] [place] [facility] [address] [id number] [place] [address]- 0978 Nov, [facility] [place] [facility] [address] [id number] [place] [address]- 1252 Nov, [facility] [place] [facility] [address] [id number] [place] [address]- 6436 Nov, [facility] [place] [facility] [address] [id number] [place] [address]- 9894 Oct, [facility] [place] [facility] [address] [id number] [place] [address]- 3270 Oct, [facility] [place] [facility] [address] [id number] [place] [address]- 8413 Oct, [facility] [place] [facility] [address] [id number] [place] [address]- 3727 Oct, [facility] [place] [facility] [address] [id number] [place] [address]- 8971 Oct, [facility] [place] [facility] [address] [id number] [place] [address]- 4610 Oct, [facility] [place] [facility] [address] [id number] [place] [address]- 0751 Oct, [facility] [place] [facility] [address] [id number] [place] [address]- 8852 Oct, [facility] [place] [facility] [address] [id number] [place] [address]- 3605 Oct, [facility] [place] [facility] [address] [id number] [place] [address]- 4647 Oct, [facility] [place] [facility] [address] [id number] [place] [address]- 2349 Aug, [facility] [place] [facility] [address] [id number] [place] [address]- 3747 Aug, [facility] [place] [facility] [address] [id number] [place] [address]- 5947 Jul, [facility] [place] [facility] [address] [id number] [place] [address]- 1968 Jul, [facility] [place] [facility] [address] [id number] [place] [address]- 6274 Jul, [facility] [place] [facility] [address] [id number] [place] [address]- 8525 Jul, [facility] [place] [facility] [address] [id number] [place] [address]- 8897 Jul, [facility] [place] [facility] [address] [id number] [place] [address]- 5537 Jul, [facility] [place] [facility] [address] [id number] [place] [address]- 6973 Apr, [facility] [place] [facility] [address] [id number] [place] [address]- 0320 Dec, [facility] [place] [facility] [address] [id number] [place] [address]- 1516 25 Nov, 2012 [facility] [place] [facility] [address] [id number] [place] [address] 2546 12 Nov, 2012 [facility] [place] [facility] [address] [id number] [place] [address] 2546 07 Nov, 2012 [facility] [place] [facility] [address] [id number] [place] [address] 2542 16 Oct, 2012 [facility] [place] [facility] [address] [id number] [place] [address]- 9219 Sep, [facility] [place] [facility] [address] [id number] [place] [address]- 4574 Sep, [facility] [place] [facility] [address] [id number] [place] [address]- 4292 Sep, [facility] [place] [facility] [address] [id number] [place] [address]- 8605 Sep, [facility] [place] [facility] [address] [id number] [place] [address]- 6542 Aug, [facility] [place] [facility] [address] [id number] [place] [address]- 7708 Aug, [facility] [place] [facility] [address] [id number] [place] [address]- 1296 Jul, [facility] [place] [facility] [address] [id number] [place] [address]- 1839 Jul, [facility] [place] [facility] [address] [id number] [place] [address] 2546 28 Jun, 2012 [facility] [place] [facility] [address] [id number] [place] [address] 2546 26 Jun, 2012 [facility] [place] [facility] [address] [id number] [place] [address]- 3308 Jun, [facility] [place] [facility] [address] [id number] [place] [address]- 1725 Jun, [facility] [place] [facility] [address] [id number] [place] [address]- 1936 Jun, [facility] [place] [facility] [address] [id number] [place] [address]- 3196 Apr, [facility] [place] [facility] [address] [id number] [place] [address]- 6177 Apr, [facility] [place] [facility] [address] [id number] [place] [address]- 3775 Apr, [facility] [place] [facility] [address] [id number] [place] [address]- 5635 Mar, [facility] [place] [facility] [address] [id number] [place] [address]- 3166 Mar, [facility] [place] [facility] [address] [id number] [place] [address]- 9998 Mar, [facility] [place] [facility] [address] [id number] [place] [address]- 2231 February, [facility] [place] [facility] [address] [id number] [place] [address]- 8824 Jan, [facility] [place] [facility] [address] [id number] [place] [address]- 1989 Dec, [facility] [place] [facility] [address] [id number] [place] [address]- 6138 Dec, [facility] [place] [facility] [address] [id number] [place] [address]- 6439 Dec, [facility] [place] [facility] [address] [id number] [place] [address]- 2136 Dec, [facility] [place] [facility] [address] [id number] [place] [address]- 7399 Dec, [facility] [place] [facility] [address] [id number] [place] [address]- 5250 14 Nov, 2011 [facility] [address] [id number] [place] [address]- 8752 13 Nov, 2011 [facility] [address] [id number] [place] [address]- 2638 25 Oct, 2011 [facility] [address] [id number] [place] [address]- 3741 Oct, [facility] [address] [id number] [place] [address]- 5391 Oct, [facility] [address] [id number] [place] [address], [place] [address]- 1545 Sep, [facility] [address] [id number] [place] [address]- 3974 Aug, [facility] [address] [facility] [id number] [place] [address]- 7984 Aug, [facility] [address] [id number] [place] [address] Jul, [facility] [address] [facility] [id number] [place] [address] 24 Jul, 2011 [facility] [address] [facility] [id number] [place] [address] Jul, [facility] [address] [id number] [place] [address] Jan, [facility] [address] [id number] [place] [address] Sep, [facility] [address] [id number] [place] [address] Sep, [facility] [place] [facility] [address] [facility] [id number] [place] [address] Sep, [facility] [address] [facility] [id number] [place] [address] Sep, [facility] [place] [facility] [address] [id number] [place] [address] 06 Sep, 2010 [facility] [place] [facility] [address] [id number] [place] [address] 16 Aug, 2010 [facility] [place] [facility] [address] [id number] [place] [address] 16 Aug, 2010 [facility] [place] [facility] [address] [id number] [place] [address] 08 Aug, 2010 [facility] [place] [facility] [address] [id number] [place] [address] Jul, [facility] [place] [facility] [address] [id number] [place] [address] Jul, [facility] [place] [facility] [address] [facility] [id number] [place] [address] Jul, [facility] [place] [facility] [address] [id number] [place] [address] May, [facility] [place] [facility] [address] [facility] [id number] [place] [address] Apr, [facility] [place] [facility] [address] [facility] [id number] [place] [address] Dec, [facility] [place] [facility] [address] [facility] [id number] [place] [address] 17 Sep, 2009 [facility] [place] [facility] [address] [id number] [place] [address] 17 Sep, 2009 [facility] [place] [facility] [address] [id number] [place] [address] Aug, [facility] [place] [facility] [address] [id number] [place] [address] 11 Aug, 2009 [facility] [place] [facility] [address] [facility] [id number] [place] [address] 28 Jul, 2009 [facility] [place] [facility] [address] [id number] [place] [id number] Mar, IMMUNIZATIONS No Known Immunizations SOCIAL HISTORY Never Assessed REASON FOR VISIT Hospital Admission PLAN OF CARE VITAL SIGNS MEDICATIONS Unknown [...]
--- OUTSIDE RECORDS SUMMARY | 2018-10-08 20:19 | XMS REPORT ---
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 547647499 Problem Edema of both feet R60.0 Active 109226727 Problem Tobacco abuse Z72.0 Active 33365362 Problem Chronic migraine G43.709 Active 01677517 Problem Mixed hyperlipidemia E78.2 Active 141420578 Problem Spinal stenosis, lumbar region M48.06 Active 52445137 Problem Anxiety F41.9 Active 72379454 Problem Radiculopathy of lumbar region M54.16 Active 315452597 Problem Bulging lumbar disc M51.26 Active 287886817 Problem Asthma J45.909 Active 536453386 Problem Essential hypertension I10 Active 48378031 ALLERGIES No Information ENCOUNTERS Encounter Location Date Diagnosis [facility] [id number] [address] Mar, [facility] [id number] [address] Mar, Chronic pain G89.29 [facility] [id number] [address] February, Chronic pain G89.29 [facility] [id number] [address] Jan, Chronic pain G89.29 [facility] [id number] [place] [address] 41259- 3993 Jan, nursing home 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 Z79.4 [facility] [address] 76042- 5367 Jan, Encounter for Depo-Provera contraception Z30.42 [facility] [address] 90253- 1677 Jan, [place] [address] 28657- 0456 Jan, Chronic pain G89.29 and Anxiety F41.9 [place] [address] 25573- 8194 Jan, [facility] [address] 35934- 7995 Dec, [facility] [address] 88933- 8187 Dec, Gastroesophageal reflux disease without esophagitis K21.9 and Anxiety F41.9 [facility] [facility] [address] 98399- 2469 Dec, Essential hypertension I10 ; Mixed hyperlipidemia E78.2 ; Type 2 diabetes mellitus with diabetic neuropathy, unspecified E11.40 ; nursing home 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 Z79.4 ; Chronic pain G89.29 ; HSV (herpes simplex virus) infection B00.9 ; Anxiety F41.9 and Gastroesophageal reflux disease without esophagitis K21.9 [facility] [id number] [place] [address] 99361- 6356 Dec, Chronic pain G89.29 and Chronic migraine G43.709 [facility] [address] 04019- 7016 Nov, [facility] [address] 40703- 7431 Nov, Essential hypertension I10 and Chronic pain G89.29 [facility] [id number] [place] [address] 36186- 0631 Nov, Chronic pain G89.29 ; Essential hypertension I10 and Type 2 diabetes mellitus without complication E11.9 [facility] [id number] [place] [address] 41370- 2462 Oct, Chronic pain G89.29 [facility] [id number] [place] [address] 00641- 9948 Oct, [facility] [id number] [place] [address] 10666- 2766 Sep, Type 2 diabetes mellitus without complication E11.9 ; Essential hypertension I10 ; nursing home (current) use of insulin Z79.4 ; Chronic migraine G43.709 ; Chronic pain G89.29 and Acute non-recurrent maxillary sinusitis J01.00 [facility] [id number] [place] [address] 72915- 1875 Sep, Encounter for Depo-Provera contraception Z30.42 [facility] [id number] [place] [address] 44940- 0137 Sep, Chronic pain G89.29 and Radiculopathy of lumbar region M54.16 [facility] [id number] [place] [address] 38460- 0339 Sep, [facility] [id number] [place] [address] 98600- 0813 Sep, [facility] [id number] [place] [address] 69938- 3206 Aug, Type 2 diabetes mellitus without complication E11.9 [facility] [id number] [place] [address] 25604- 0302 Aug, [facility] [id number] [place] [address] 43159- 1647 Aug, Radiculopathy of lumbar region M54.16 and Chronic pain G89.29 [facility] [address] [id number] [place] [address]- 6585 Aug, Type 2 diabetes mellitus without complication E11.9 [facility] [address] [id number] [place] [address]- 9196 Aug, Type 2 diabetes mellitus without complication E11.9 [facility] [address] [id number] [place] [address]- 7786 Jul, Type 2 diabetes mellitus without complication E11.9 [facility] [address] [id number] [place] [address]- 4056 Jul, [facility] [address] [facility] [id number] [place] [address]- 3776 Jul, Chronic pain G89.29 [facility] [address] [facility] [id number] [place] [address]- 5316 Jul, [facility] [address] [facility] [id number] [address] 5376 Jul, [facility] [address] [facility] [id number] [place] [address]- 9708 Jul, Type 2 diabetes mellitus without complication E11.9 [facility] [address] [facility] [id number] [place] [address]- 6236 Jul, [facility] [address] [facility] [id number] [address] 0052 Jul, Type 2 diabetes mellitus without complication E11.9 [facility] [address] [id number] [place] [address]- 6146 Jul, [facility] [address] [facility] [id number] [place] [address]- 0856 Jul, [facility] [address] [facility] [id number] [place] [address]- 5846 Jul, [facility] [address] [facility] [id number], [place] [address]- 0680 Jun, Type 2 diabetes mellitus without complication E11.9 [facility] [id number] [place] [address] 22781- 7179 Jun, Chronic migraine G43.709 ; Type 2 diabetes mellitus without complication E11.9 ; Calculus of right kidney N20.0 ; Yeast dermatitis B37.2 and HSV (herpes simplex virus) infection B00.9 [place] [address] 54378- 4206 Jun, Type 2 diabetes mellitus without complication E11.9 [facility] [address] 17877- 3643 Jun, [place] [address] 89122- 5655 Jun, Radiculopathy of lumbar region M54.16 and Chronic pain G89.29 [place] [address] 75668- 4998 Jun, Encounter for Depo-Provera contraception Z30.42 [place] [address] 56313- 6874 Jun, Type 2 diabetes mellitus without complication E11.9 [facility] [id number] [place] [address] 63866- 1087 Jun, [facility] [id number] [place] [address] 12228 -7489 May, Acute nasopharyngitis (common cold) J00 [facility] [id number] [place] [address] 38375- 8458 May, Chronic pain G89.29 [place] [address] 49420- 6784 May, Headache following lumbar puncture G97.1 [facility] [id number] [place] [address] 80751- 0753 08 May, 2017 Radiculopathy of lumbar region M54.16 [facility] [id number] [place] [address] 00236- 9979 Apr, [place] [address] 88059- 6931 Apr, Type 2 diabetes mellitus without complication E11.9 ; Chronic pain G89.29 ; Essential hypertension I10 ; Radiculopathy of lumbar region M54.16 ; Spinal stenosis, lumbar region M48.06 ; Gastroesophageal reflux disease without esophagitis K21.9 ; HSV (herpes simplex virus) infection B00.9 ; Mixed hyperlipidemia E78.2 ; Anxiety F41.9 and Asthma J45.909 [place] [address] 11005- 7830 Apr, Encounter for Depo-Provera contraception Z30.42 [place] [address] 30561- 3429 Apr, Chronic pain G89.29 and Anxiety F41.9 [place] [address] 65961- 8832 Mar, [place] [address] 31304- 2259 Mar, [place] [address] 52745- 9266 Mar, Mixed hyperlipidemia E78.2 [place] [address] 28720- 7641 Mar, Type 2 diabetes mellitus without complication E11.9 ; Chronic pain G89.29 ; Essential hypertension I10 ; Radiculopathy of lumbar region M54.16 ; Spinal stenosis, lumbar region M48.06 ; Gastroesophageal reflux disease without esophagitis K21.9 ; HSV (herpes simplex virus) infection B00.9 ; Mixed hyperlipidemia E78.2 and Anxiety F41.9 [place] [address] 02210- 4039 Mar, [place] [address] 95798- 6100 Mar, [facility] [id number] [place] [address] 72846- 8485 Mar, [facility] [id number] [place] [address] 04201- 7787 February, Chronic pain G89.29 [facility] [id number] [place] [address] 36169- 8145 February, [facility] [id number] [place] [address] 71878- 7787 Jan, Chronic pain G89.29 [facility] [id number] [place] [address] 61559- 0843 Jan, Type 2 diabetes mellitus without complication E11.9 [facility] [id number] [place] [address] 23927- 3606 Jan, [facility] [id number] [place] [address] 41255- 1384 Jan, [facility] [id number] [place] [address] 51162- 8194 Jan, [facility] [id number] [place] [address] 51366- 7305 Jan, Type 2 diabetes mellitus without complication [...] J01.00 and Encounter for Depo-Provera contraception Z30.42 [facility] [address] [place] [address] 24994- 8596 Dec, Chronic pain G89.29 [facility] [id number] [place] [address] 12643- 2621 Dec, Abnormal ankle brachial index (BERNARDINO) R68.89 [place] [address], [place] [address]- 8637 Dec, [place] [place] [id number] [place] [address] 39755- 5147 Dec, Routine gynecological examination Z01.419 ; Chronic [...] virus) infection B00.9 and Allergic rhinitis 477.9 [address] [id number] [place] [address] 58930- 0219 Nov, Chronic pain G89.29 [place] [id number] [place] [address] 98893- 0524 Nov, Chronic pain G89.29 ; Encounter for [...] mucoid otitis media of both ears H65.113 [place] [address] [place] [address] 47574- 2866 Oct, [facility] [id number] [place] [address] 22950- 4138 Oct, Chronic pain G89.29 [address] [place] [address] 77604- 4740 Oct, Chronic pain G89.29 [place] [id number] [place] [address] 40783- 5548 Sep, Chronic pain G89.29 ; Type 2 diabetes mellitus without complication E11.9 ; Essential hypertension I10 ; Radiculopathy of lumbar region M54.16 ; Spinal stenosis, lumbar region M48.06 ; Gastroesophageal reflux disease without esophagitis K21.9 ; Encounter for surveillance of injectable contraceptive Z30.42 ; Bilateral cold feet R20.9 ; Pain of left foot M79.672 and Pain in right foot M79.671 [place] [id number] [place] [address] 92794- 3256 05 Sep, 2016 [place] [id number] [place] [address] 08830- 8081 17 Aug, 2016 [place] [id number] [place] [address] 39439- 5292 Aug, [place] [id number] [place] [address] 23642- 4873 Aug, Chronic pain G89.29 ; Type 2 diabetes mellitus without complication E11.9 ; Essential hypertension I10 ; Rash and nonspecific skin eruption R21 and Upper respiratory infection, acute J06.9 [place] [id number] [place] [address] 53246- 3634 08 Aug, 2016 [place] [id number] [place] [address] 66039- 5164 04 Aug, 2016 [place] [id number] [place] [address] 04556- 6995 Jul, [place] [place] [id number] [place] [address] 37090- 9316 Jul, Dysuria R30.0 ; Encounter for Depo-Provera contraception Z30.42 ; Herpes simplex B00.9 ; Nausea & vomiting R11.2 and Asthma J45.909 [place] [place] [id number] [place] [address] 78215- 7240 Jun, Dysuria R30.0 [address] 73980- 5139 19 Jun, 2016 Dysuria R30.0 [facility] [id number] [place] [address] 67082- 4716 15 Jun, 2016 [facility] [id number] [place] [address] 29998- 2240 13 Jun, 2016 [facility] [id number] [place] [address] 06374- 3201 May, [facility] [id number] [place] [address] 54001- 9616 May, [facility] [id number] [place] [address] 70723- 5377 May, Chronic pain G89.29 ; Essential hypertension I10 ; Type 2 diabetes mellitus without complication E11.9 ; Edema of both feet R60.0 and Rash and nonspecific skin eruption R21 [facility] [place] [id number] [place] [address] 35338- 5110 Apr, [facility] [id number] [place] [address] 66055- 5228 Mar, Carpal tunnel syndrome, left upper limb G56.02 and Carpal tunnel syndrome, right upper limb G56.01 [facility] [address] [address]- 9370 Mar, [facility] [id number] [place] [address] 51369- 7476 Mar, Encounter for Depo-Provera contraception Z30.42 [facility] [address], [place] [address]- 7119 February, [facility] [id number] [place] [address] 41810- 7314 February, [facility] [id number] [place] [address] 83339- 6123 February, Chronic pain G89.29 ; Essential hypertension I10 ; Type 2 diabetes mellitus without complication E11.9 ; HSV (herpes simplex virus) infection B00.9 ; Anxiety F41.9 ; Hypersomnia G47.10 ; Tobacco abuse Z72.0 ; Hand pain, left M79.642 ; Hand pain, right M79.641 ; Left foot pain M79.672 and Heart palpitations R00.2 [address] [address] 30156- 0959 Jan, [place] [address] 13705- 3154 Jan, [place] [address] 83616- 6340 Jan, [address] 11783- 9553 Jan, [address] 29473- 5594 Jan, Upper respiratory infection J06.9 and Type 2 diabetes mellitus without complication E11.[address] 00596- 3747 Dec, [address] 41662- 9431 Dec, Chronic pain G89.29 ; Essential hypertension I10 ; Type 2 diabetes mellitus without complication E11.9 ; HSV (herpes simplex virus) infection B00.9 ; Anxiety F41.9 ; Upper respiratory infection J06.9 ; Hypersomnia G47.10 and Tobacco abuse Z72.0 [id number] [place] [address] 33581- 1693 Dec, Encounter for Depo-Provera contraception Z30.[address] 32943- 4497 Dec, [address] 60153- 1298 Dec, Chronic pain G89.29 ; Sinusitis J32.9 ; Snoring R06.83 and Daytime hypersomnia G47.19 [facility] [id number] [place] [address] 12457- 7461 Nov, HSV (herpes simplex virus) infection B00.9 ; Encounter for Papanicolaou smear for cervical cancer screening Z12.4 ; Screening for STD sexually transmitted disease Z11.3 and Bartholin's gland cyst N75.0 [place] [address] 00517- 0711 Nov, [place] [facility] [address] 49952- 2908 Nov, [place] [address] 78020- 9618 Nov, Essential hypertension I10 ; Type 2 diabetes mellitus without complication E11.9 ; HSV (herpes simplex virus) infection B00.9 ; Spinal stenosis, lumbar region M48.06 and Vaginal yeast infection B37.3 [place] [address] 34414- 5355 Nov, [place] [address] 64711- 1147 Nov, [place] [address] 55420- 6237 Oct, [place] [address] 54897- 6647 Oct, HSV (herpes simplex virus) infection B00.9 ; Yeast infection B37.9 ; Change in bowel habit R19.4 ; Nausea & vomiting R11.2 and Gastroesophageal reflux disease without esophagitis K21.9 [place] [address] 91174- 6983 Oct, [place] [address] 22906- 0616 Oct, Type 2 diabetes mellitus without complication E11.9 ; Essential hypertension I10 and Acute maxillary sinusitis, recurrence not specified J01.00 [facility] [id number] [place] [address] 81348- 7041 Oct, [address] 11697- 2809 Oct, [address] 27078- 5184 Oct, Exposure to head lice Z20.7 ; Blood glucose abnormal R73.09 ; Boil of buttock L02.32 and Type 2 diabetes mellitus without complication E11.[address] 27460- 3594 Oct, [address] 00037- 0428 Sep, [address] 88416- 6970 Sep, [address] 35968- 3099 Aug, Encounter for Depo-Provera contraception Z30.[address] 20671- 8173 Aug, Anxiety F41.9 ; Spinal stenosis, lumbar region M48.06 ; Radiculopathy of lumbar region M54.16 ; Asthma J45.909 ; GERD (gastroesophageal reflux disease) K21.9 ; Essential hypertension I10 and Long-term use of high- risk medication Z79.899 [id number] [place] [address] 01509- 3183 Jul, [address] 52026- 3276 Jun, Hemorrhoid 455.6 [id number] [place] [address] 90434- 7518 Jun, [address] 32043- 8167 Jun, Anxiety 300.00 ; Asthma 493.90 ; Hyperhidrosis 705.21 ; Chest discomfort 786.59 and Upper respiratory infection 465.[address] 25548- 1292 May, Encounter for Depo-Provera contraception V25.[address] 84238- 5224 May, [address] 90070- 6122 May, [address] 30927- 9385 May, Spinal stenosis of lumbar region with radiculopathy 724.02 ; Bulging of intervertebral disc between L4 and L5 722.10 ; GERD ( gastroesophageal reflux disease) 530.81 ; Chronic pain 338.29 ; Declining mobility 799.89 and Epigastric pain 789.[address] 49383- 7177 Apr, [address] 73656- 1966 Apr, Nausea 787.02 and Heart burn 787.[address] 07206- 9182 Mar, Lumbago 724.2 ; Vitamin D deficiency 268.9 ; Anxiety 300.00 ; Allergic rhinitis 477.9 and Contraceptive surveillance V25.[address] 01387- 5890 February, 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 ; Chronic pain 338.29 and Vaginal discharge 623.[address] 61768- 4448 February, [address] 45938- 8012 February, [address] [id number] [place] [address]- 6885 14 Jan, 2015 [facility] [place] [facility] [address] [id number] [place] [address]- 5758 13 Jan, 2015 [facility] [place] [facility] [address] [id number] [place] [address]- 2701 26 Dec, 2014 [facility] [place] [facility] [address] [id number] [place] [address]- 3857 26 Dec, 2014 [facility] [place] [facility] [address] [id number] [place] [address]- 3191 25 Dec, 2014 [facility] [place] [facility] [address] [id number] [place] [address]- 5543 25 Dec, 2014 [facility] [place] [facility] [address] [id number] [place] [address]- 6295 18 Dec, 2014 [facility] [place] [facility] [address] [id number] [place] [address]- 7535 18 Dec, 2014 [facility] [place] [facility] [address] [id number] [place] [address]- 8203 Dec, [facility] [place] [facility] [address] [id number] [place] [address]- 5280 Dec, [facility] [place] [facility] [address] [id number] [place] [address]- 2528 12 Dec, 2014 [facility] [place] [facility] [address] [id number] [place] [address]- 2336 Dec, [facility] [place] [facility] [address] [id number] [place] [address]- 4951 Dec, [facility] [place] [facility] [address] [id number] [place] [address]- 6759 Dec, [facility] [place] [facility] [address] [id number] [place] [address]- 3472 27 Nov, 2014 [facility] [place] [facility] [address] [id number] [place] [address]- 9870 b, 2014 [facility] [place] [facility] [address] [facility] [id number] [place] [address]- 0350 24 Nov, 2014 [facility] [place] [facility] [address] [facility] [id number] [place] [address]- 0236 24 Nov, 2014 [facility] [place] [facility] [address] [facility] [id number] [place] [address]- 8036 23 Nov, 2014 [facility] [place] [facility] [address] [facility] [id number] [place] [address]- 3026 23 Nov, 2014 [facility] [place] [facility] [address] [facility] [id number] [place] [address]- 2730 16 Nov, 2014 [facility] [place] [facility] [address] [facility] [id number] [place] [address]- 6457 16 Nov, 2014 [facility] [place] [facility] [address] [facility] [id number] [place] [address]- 8107 13 Nov, 2014 [facility] [place] [facility] [address] [facility] [id number] [place] [address]- 5394 13 Nov, 2014 [facility] [place] [facility] [address] [facility] [id number] [place] [address]- 3084 13 Nov, 2014 [facility] [place] [facility] [address] [facility] [id number] [place] [address]- 1371 13 Nov, 2014 [facility] [place] [facility] [address] [facility] [id number] [place] [address]- [address] 13 Nov, 2014 [facility] [place] [facility] [address] [facility] [id number] [place] [address] 13 Nov, 2014 [facility] [place] [facility] [address] [facility] [id number] [place] [address] 13 Nov, 2014 [facility] [place] [facility] [address] [facility] [id number] [place] [address] 13 Nov, 2014 [facility] [place] [facility] [address] [facility] [id number] [place] [address] Nov, 2014 [facility] [place] [facility] [address] [id number] [place] [address] Nov, 2014 [facility] [place] [facility] [address] [id number] [place] [address] Nov, 2014 [facility] [place] [facility] [address] [id number] [place] [address] Nov, 2014 [facility] [place] [facility] [address] [id number] [place] [address] Nov, 2014 [facility] [place] [facility] [address] [id number] [place] [address] Nov, 2014 [facility] [place] [facility] [address] [id number] [place] [address] Nov, [facility] [place] [facility] [address] [facility] [id number] [place] [address] Oct, [facility] [place] [facility] [address] [id number] [place] [address] Oct, [facility] [place] [facility] [address] [id number] [place] [address] Oct, [facility] [place] [facility] [address] [facility] [id number] [place] [address] Oct, [facility] [place] [facility] [address] [id number] [place] [address] 4790 Oct, [facility] [place] [facility] [address] [id number] [place] [address] 3747 Oct, [facility] [place] [facility] [address] [id number] [place] [address]294 Oct, [facility] [place] [facility] [address] [facility] [id number] [place] [address] Oct, [facility] [place] [facility] [address] [facility] [id number] [place] [address] 8168 Oct, [facility] [place] [facility] [address] [facility] [id number] [place] [address] Oct, [facility] [address] [id number] [place] [address] 8612 Oct, [facility] [address] [id number] [place] [address] 29[address] Oct, [facility] [address] [id number] [place] [address] 76[address] Oct, [facility] [address] [id number] [place] [address]257 Oct, [facility] [address] [id number] [place] [address] 2217 Oct, [facility] [address] [id number] [place] [address]- 5143 Oct, [facility] [address] [id number] [place] [address]- 4502 Oct, [facility] [address] [id number] [place] [address]- 4519 Oct, [facility] [address] [id number] [place] [address]- 9987 Oct, [facility] [address] [id number] [place] [address]- 7805 Oct, [facility] [address] [id number] [place] [address]- 7439 Oct, [facility] [address] [id number] [place] [address]- 6249 Sep, [facility] [place] [facility] [address] [id number] [place] [address]- 5344 Sep, [facility] [place] [facility] [address] [id number] [place] [address] 7470 Sep, [facility] [address] [id number] [place] [address]- 1351 Sep, [facility] [place] [facility] [address] [id number] [place] [address]- 4810 17 Sep, 2014 [facility] [place] [facility] [address] [id number] [place] [address]- 3536 17 Sep, 2014 [facility] [place] [facility] [address] [id number] [place] [address]- 2120 15 Sep, 2014 [facility] [place] [facility] [address] [id number] [place] [address]- 8108 15 Sep, 2014 [facility] [place] [facility] [address] [id number] [place] [address]- 6776 12 Sep, 2014 [facility] [place] [facility] [address] [id number] [place] [address]- 4545 12 Sep, 2014 [facility] [place] [facility] [address] [id number] [place] [address]- 5789 11 Sep, 2014 [facility] [place] [facility] [address] [id number] [place] [address]- 3082 11 Sep, 2014 [facility] [place] [facility] [address] [id number] [place] [address]- 2130 Sep, [facility] [place] [facility] [address] [id number] [place] [address]- 2315 Sep, [facility] [place] [facility] [address] [id number] [place] [address]- 4575 11 Sep, 2014 [facility] [place] [facility] [address] [id number] [place] [address]- 3047 11 Sep, 2014 [facility] [place] [facility] [address] [id number] [place] [address]- 9483 10 Sep, 2014 [facility] [place] [facility] [address] [id number] [place] [address]- 5492 10 Sep, 2014 [facility] [place] [facility] [address] [id number] [place] [address]- 1295 08 Sep, 2014 [facility] [place] [facility] [address] [id number], [place] [address] Sep, [facility] [place] [facility] [address] [id number] [place] [address]- 6430 Aug, [facility] [place] [facility] [address] [id number] [place] [address]- 1032 Aug, [facility] [place] [facility] [address] [id number] [place] [address]- 7172 Aug, [facility] [place] [facility] [address] [id number] [place] [address]- 4157 Aug, [facility] [place] [facility] [address] [id number] [place] [address]- 9987 Aug, [facility] [place] [facility] [address] [id number] [place] [address]- 6416 Aug, [facility] [place] [facility] [address] [id number] [place] [address]- 2691 Aug, [facility] [place] [facility] [address] [id number] [place] [address]- 3608 Aug, [facility] [place] [facility] [address] [id number] [place] [address]- 8728 Aug, [facility] [place] [facility] [address] [id number] [place] [address]- 4748 Jul, [facility] [place] [facility] [address] [id number], [place] [address]- 2227 Jul, [facility] [place] [facility] [address] [id number], [place] [address]- 4448 Jul, [facility] [place] [facility] [address] [id number] [place] [address]- 7961 Jul, [facility] [place] [facility] [address] [id number], [place] [address]- 9293 Jul, [facility] [place] [facility] [address] [id number] [place] [address]- 9103 Jul, [facility] [place] [facility] [address] [id number] [place] [address]- 2539 13 Jul, 2014 [facility] [place] [facility] [address] [id number] [place] [address]- 4215 Jul, [facility] [place] [facility] [address] [id number] [place] [address]- 5076 Jul, [facility] [place] [facility] [address] [id number] [place] [address]- 4936 Jul, 2013 [facility] [place] [facility] [address] [id number] [place] [address]- 6141 Jul, [facility] [place] [facility] [address] [id number] [place] [address]- 8238 Jul, [facility] [place] [facility] [address] [id number] [place] [address]- 0842 Jul, [facility] [place] [facility] [address] [id number] [place] [address]- 2485 Jul, [facility] [place] [facility] [address] [id number] [place] [address]- 4821 30 Sep, 2013 [facility] [place] [facility] [address] [id number] [place] [address]- 2540 30 Jun, 2013 [facility] [place] [facility] [address] [id number] [place] [address]- 6131 25 Sep, 2013 [facility] [place] [facility] [address] [id number] [place] [address]- 2546 25 Sep, 2013 [facility] [place] [facility] [address] [id number] [place] [address] 2546 25 Sep, 2013 [facility] [place] [facility] [address] [id number] [place] [address] 2546 25 Jun, 2013 [facility] [place] [facility] [address] [id number] [place] [address]- 2546 24 Jun, 2013 [facility] [place] [facility] [address] [id number] [place] [address]- 9727 24 Sep, 2013 [facility] [place] [facility] [address] [id number] [place] [address]- 4683 22 Sep, 2013 [facility] [place] [facility] [address] [id number] [place] [address]- 2739 22 Sep, 2013 [facility] [place] [facility] [address] [id number] [place] [address]- 2344 17 Sep, 2013 [facility] [place] [facility] [address] [id number] [place] [address]- 9422 17 Sep, 2013 [facility] [place] [facility] [address] [id number] [place] [address]- 8022 16 Jun, 2013 [facility] [place] [facility] [address] [id number] [place] [address]- 9037 16 Jun, 2013 [facility] [place] [facility] [address] [id number] [place] [address]- 9159 15 Jun, 2013 [facility] [place] [facility] [address] [id number] [place] [address]- 6444 15 Jun, 2013 [facility] [place] [facility] [address] [id number] [place] [address]- 3214 12 Jun, 2013 [facility] [place] [facility] [address] [id number] [place] [address]- 6743 12 Jun, 2013 [facility] [place] [facility] [address] [id number] [place] [address]- 8038 11 Jun, 2013 [facility] [place] [facility] [address] [id number], [place] [address]- 9490 11 Jun, 2013 [facility] [place] [facility] [address] [id number] [place] [address]- 2543 11 Jun, 2013 [facility] [place] [facility] [address] [id number] [place] [address]- 2553 11 Jun, 2013 [facility] [place] [facility] [address] [id number] [place] [address]- 8708 09 Jun, 2013 [facility] [place] [facility] [address] [id number] [place] [address]- 0946 Jun, [facility] [place] [facility] [address] [id number] [place] [address]- 2164 Jun, [facility] [place] [facility] [address] [id number] [place] [address]- 9147 Jun, [facility] [place] [facility] [address] [id number] [place] [address]- 2354 May, [facility] [place] [facility] [address] [id number] [place] [address]- 5145 May, [facility] [place] [facility] [address] [id number] [place] [address]- 5071 May, [facility] [place] [facility] [address] [id number] [place] [address]- 1743 May, [facility] [place] [facility] [address] [id number] [place] [address]- 7539 May, [facility] [place] [facility] [address] [id number] [place] [address]- 9022 May, [facility] [place] [facility] [address] [id number] [place] [address]- 1063 May, [facility] [place] [facility] [address] [id number] [place] [address]- 5408 May, [facility] [place] [facility] [address] [id number] [place] [address]- 7457 May, [facility] [place] [facility] [address] [id number] [place] [address]- 2429 May, [facility] [place] [facility] [address] [id number] [place] [address]- 9811 May, [facility] [place] [facility] [address] [id number] [place] [address]- 3489 May, [facility] [place] [facility] [address] [id number] [place] [address]- 1782 May, [facility] [place] [facility] [address] [id number] [place] [address]- 6810 Apr, [facility] [place] [facility] [address] [id number] [place] [address]- 9929 Apr, [facility] [place] [facility] [address] [id number] [place] [address]- 2409 Apr, [facility] [place] [facility] [address] [id number] [place] [address]- 3224 Apr, [facility] [place] [facility] [address] [id number] [place] [address]- 4531 Apr, [facility] [place] [facility] [address] [id number] [place] [address]- 2500 Mar, [facility] [place] [facility] [address] [id number] [place] [address]- 9678 Mar, [facility] [place] [facility] [address] [id number] [place] [address]- 6022 Mar, [facility] [place] [facility] [address] [id number] [place] [address]- 8466 February, [facility] [place] [facility] [address] [id number] [place] [address]- 7930 February, [facility] [place] [facility] [address] [id number] [place] [address]- 5255 February, [facility] [place] [facility] [address] [id number] [place] [address]- 0743 February, [facility] [place] [facility] [address] [id number] [place] [address]- 6162 February, [facility] [place] [facility] [address] [id number] [place] [address]- 8209 February[facility] [place] [facility] [address] [id number] [place] [address]123 February, [facility] [place] [facility] [address] [id number] [place] [address]- 0483 February, [facility] [place] [facility] [address] [id number] [place] [address]- 2526 February, [facility] [place] [facility] [address] [id number] [place] [address]- 8720 Jan, [facility] [place] [facility] [address] [id number] [place] [address]- 7045 Jan, [facility] [place] [facility] [address] [id number] [place] [address]- 3286 Jan, [facility] [place] [facility] [address] [id number] [place] [address]- 3361 Jan, [facility] [place] [facility] [address] [id number] [place] [address]- 7084 Jan, [facility] [place] [facility] [address] [id number] [place] [address]- 7301 Dec, [facility] [place] [facility] [address] [id number] [place] [address]- 2580 Dec, [facility] [place] [facility] [address] [id number] [place] [address]- 0092 Dec, [facility] [place] [facility] [address] [id number] [place] [address]- 7590 Dec, [facility] [place] [facility] [address] [id number] [place] [address]- 9757 Dec, [facility] [place] [facility] [address] [id number] [place] [address]- 3550 Nov, [facility] [place] [facility] [address] [id number] [place] [address]- 9461 Nov, [facility] [place] [facility] [address] [id number] [place] [address]- 5818 Nov, [facility] [place] [facility] [address] [id number] [place] [address]- 5881 Nov, [facility] [place] [facility] [address] [id number] [place] [address]- 7680 30 Oct, 2013 [facility] [place] [facility] [address] [id number] [place] [address]- 7308 Oct, [facility] [place] [facility] [address] [id number] [place] [address]- 2773 Oct, [facility] [place] [facility] [address] [id number] [place] [address]- 7824 Oct, [facility] [place] [facility] [address] [id number] [place] [address]- 1855 Oct, [facility] [place] [facility] [address] [id number] [place] [address]- 2896 Oct, [facility] [place] [facility] [address] [id number] [place] [address]- 1553 Oct, [facility] [place] [facility] [address] [id number] [place] [address]- 4990 Oct, [facility] [place] [facility] [address] [id number] [place] [address]- 2876 Oct, [facility] [place] [facility] [address] [id number] [place] [address]- 5849 Oct, [facility] [place] [facility] [address] [id number] [place] [address]- 3054 Aug, [facility] [place] [facility] [address] [id number] [place] [address]- 0192 Aug, [facility] [place] [facility] [address] [id number] [place] [address]- 7187 Jul, [facility] [place] [facility] [address] [id number] [place] [address]- 0195 Jul, [facility] [place] [facility] [address] [id number] [place] [address]- 7837 Jul, [facility] [place] [facility] [address] [id number] [place] [address]- 9238 Jul, [facility] [address] [id number] [place] [address]- 5295 Jul, [facility] [place] [facility] [address] [id number] [place] [address]- 8776 Jul, [facility] [place] [facility] [address] [id number] [place] [address]- 0318 Apr, [facility] [place] [facility] [address] [id number] [place] [address]- 5772 Dec, [facility] [place] [facility] [address] [id number] [place] [address]- 6497 Nov, [facility] [place] [facility] [address] [id number] [place] [address]- 9958 Nov, [facility] [place] [facility] [address] [id number] [place] [address]- 0564 Nov, [facility] [place] [facility] [address] [id number] [place] [address]- 6101 Oct, [facility] [place] [facility] [address] [id number] [place] [address]- 5919 Sep, [facility] [place] [facility] [address] [id number] [place] [address]- 3669 Sep, [facility] [place] [facility] [address] [id number] [place] [address]- 8047 Sep, [facility] [place] [facility] [address] [id number], [place] [address]- 5219 Sep, [facility] [place] [facility] [address] [id number] [place] [address]- 6817 Aug, [facility] [place] [facility] [address] [id number] [place] [address]- 1721 Aug, [facility] [place] [facility] [address] [id number] [place] [address]- 8307 Jul, [facility] [place] [facility] [address] [id number] [place] [address]- 2875 12 Jul, 2012 [facility] [place] [facility] [address] [id number] [place] [address]- 3906 28 Jun, 2012 [facility] [place] [facility] [address] [id number] [place] [address] 2546 26 Jun, 2012 [facility] [place] [facility] [address] [id number] [place] [address]- 5656 24 Jun, 2012 [facility] [place] [facility] [address] [id number] [place] [address] 2547 24 Jun, 2012 [facility] [place] [facility] [address] [id number] [place] [address]- 9068 12 Jun, 2012 [facility] [place] [facility] [address] [id number] [place] [address]- 8716 31 Apr, 2012 [facility] [place] [facility] [address] [id number] [place] [address]- 1908 30 Apr, 2012 [facility] [place] [facility] [address] [id number] [place] [address]- 7845 Apr, [facility] [place] [facility] [address] [id number] [place] [address]- 5751 Mar, [facility] [place] [facility] [address] [id number] [place] [address]- 3910 Mar, [facility] [place] [facility] [address] [id number] [place] [address]- 5725 Mar, [facility] [place] [facility] [address] [id number] [place] [address]- 7059 February, [facility] [place] [facility] [address] [id number] [place] [address]- 6573 Jan, [facility] [place] [facility] [address] [id number] [place] [address]- 1907 Dec, [facility] [place] [facility] [address] [id number] [place] 2807 Dec, [facility] [place] [facility] [address] [id number] [place] [address]- 3518 Dec, [facility] [place] [facility] [address] [id number] [place] [address]- 2529 19 Dec, 2011 [facility] [place] [facility] [address] [id number] [place] [address]- 7482 Dec, [facility] [place] [facility] [address] [id number] [place] [address]- 7699 14 Nov, 2011 [facility] [place] [facility] [address] [id number] [place] [address]- 9109 Nov, [facility] [place] [facility] [address] [id number] [place] [address]- 2568 Oct, [facility] [place] [facility] [address] [id number] [place] [address]- 4363 Oct, [facility] [address] [id number] [place] [address]- 7401 Oct, [facility] [place] [facility] [address] [id number] [place] [address]- 7343 Sep, [facility] [place] [facility] [address] [id number], [place] [address]- 6952 Aug, [facility] [place] [facility] [address] [id number], [place] [address]- 1276 Aug, [facility] [place] [facility] [address] [id number], [place] [address]- 3720 Jul, [facility] [place] [facility] [address] [id number] [place] [address]- 6523 24 Jul, 2011 [facility] [place] [facility] [address] [id number] [place] [address]- 9321 Jul, [facility] [place] [facility] [address] [id number], [place] [address]- 8842 13 Jan, 2011 [facility] [place] [facility] [address] [id number], [place] [address]- 2759 29 Sep, 2010 [facility] [address] [id number] [place] [address]- 8826 27 Sep, 2010 [facility] [place] [facility] [address] [id number] [place] [address] Sep, [facility] [place] [facility] [address] [facility] [id number] [place] [address] Sep, [facility] [place] [facility] [address] [id number] [place] [address] 06 Sep, 2010 [facility] [place] [facility] [address] [id number] [place] [address] 16 Aug, 2010 [facility] [place] [facility] [address] [id number] [place] [address] 16 Aug, 2010 [facility] [address] [facility] [id number] [place] [address] 08 Aug, 2010 [facility] [place] [facility] [address] [facility] [id number] [place] [address] Jul, [facility] [place] [facility] [address] [facility] [id number] [place] [address] Jul, [facility] [place] [facility] [address] [facility] [id number] [place] [address] Jul, [facility] [place] [facility] [address] [facility] [id number], [place] [address] May, [facility] [place] [facility] [address] [id number], [place] [address] 13 Apr, 2010 [facility] [place] [facility] [address] [id number] [place] [address] 18 Dec, 2009 [facility] [place] [facility] [address] [facility] [id number] [place] [address] 17 Sep, 2009 [facility] [place] [facility] [address] [facility] [id number] [place] [address] 17 Sep, 2009 [facility] [place] [facility] [address] [facility] [id number] [place] [address] Aug, [facility] [address] [facility] [id number], [place] [address] Aug, [facility] [address] [facility] [id number] [address] Jul, [facility] [address] [facility] [id number] [address] Mar, IMMUNIZATIONS No Known Immunizations SOCIAL HISTORY Never Assessed REASON FOR VISIT med refill PLAN OF CARE VITAL SIGNS MEDICATIONS Unknown [...]
--- OUTSIDE RECORDS SUMMARY | 2018-10-08 20:20 | XMS REPORT ---
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 Active 192156454 Problem Edema of both feet R60.0 Active 172420175 Problem Tobacco abuse Z72.0 Active 83240010 Problem Chronic migraine G43.709 Active 91473170 Problem Mixed hyperlipidemia E78.2 Active 144434157 Problem Spinal stenosis, lumbar region M48.06 Active 94176351 Problem Anxiety F41.9 Active 95728081 Problem Radiculopathy of lumbar region M54.16 Active 482803431 Problem Bulging lumbar disc M51.26 Active 485116884 Problem Asthma J45.909 Active 892340727 Problem Essential hypertension I10 Active 22707455 ALLERGIES No Information ENCOUNTERS Encounter Location Date Diagnosis [facility] [id number] [place] [address] 48495- 6094 February, Chronic pain G89.29 [facility] [id number] [place] [address] 19459- 7895 Jan, Chronic pain G89.29 [facility] [id number] [place] [address] 79667- 6994 Jan, shelter 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 Z79.4 [facility] [address] [place] [address] 57951- 8181 09 Jan, 2018 Encounter for Depo-Provera contraception Z30.42 [facility] [id number] [place] [address] 96223- 4379 Jan, [facility] [id number] [place] [address] 72485- 6412 Jan, Chronic pain G89.29 and Anxiety F41.9 [facility] [address] 03253- 7993 Jan, [facility] [id number] [place] [address] 84408- 2862 14 Dec, 2017 [facility] [id number] [place] [address] 98826- 3721 14 Dec, 2017 Gastroesophageal reflux disease without esophagitis K21.9 and Anxiety F41.9 [facility] [address] 95040- 8374 Dec, Essential hypertension I10 ; Mixed hyperlipidemia E78.2 ; Type 2 diabetes mellitus with diabetic neuropathy, unspecified E11.40 ; shelter 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 Z79.4 ; Chronic pain G89.29 ; HSV (herpes simplex virus) infection B00.9 ; Anxiety F41.9 and Gastroesophageal reflux disease without esophagitis K21.9 [facility] [id number] [place] [address] 61153- 5360 07 Dec, 2017 Chronic pain G89.29 and Chronic migraine G43.709 [facility] [id number] [place] [address] 36463- 6485 Nov, [facility] [id number] [place] [address] 53613- 3590 Nov, Essential hypertension I10 and Chronic pain G89.29 [facility] [id number] [place] [address] 12395- 1183 05 Nov, 2017 Chronic pain G89.29 ; Essential hypertension I10 and Type 2 diabetes mellitus without complication E11.9 [facility] [id number] [place] [address] 86148- 4575 Oct, Chronic pain G89.29 [facility] [id number] [place] [address] 52508- 5488 Oct, [facility] [id number] [place] [address] 88044- 3781 Sep, Type 2 diabetes mellitus without complication E11.9 ; Essential hypertension I10 ; shelter (current) use of insulin Z79.4 ; Chronic migraine G43.709 ; Chronic pain G89.29 and Acute non-recurrent maxillary sinusitis J01.00 [facility] [id number] [place] [address] 23887- 8633 19 Sep, 2017 Encounter for Depo-Provera contraception Z30.42 [facility] [id number] [place] [address] 69871- 2261 13 Sep, 2017 Chronic pain G89.29 and Radiculopathy of lumbar region M54.16 [facility] [id number] [place] [address] 24602- 7163 Sep, [facility] [id number] [place] [address] 20241- 4374 Sep, [facility] [id number] [place] [address] 56106- 8741 Aug, Type 2 diabetes mellitus without complication E11.9 [facility] [id number] [place] [address] 95243- 9134 Aug, [facility] [id number] [place] [address] 86618- 4293 Aug, Radiculopathy of lumbar region M54.16 and Chronic pain G89.29 [facility] [id number] [place] [address] 76082- 7412 09 Aug, 2017 Type 2 diabetes mellitus without complication E11.9 [facility] [id number] [place] [address] 03549- 7133 Aug, Type 2 diabetes mellitus without complication E11.9 [facility] [address] [address]- 5074 Jul, Type 2 diabetes mellitus without complication E11.9 [facility] [address] [address]- 7649 Jul, [facility] [id number] [place] [address] 91766- 4362 Jul, Chronic pain G89.29 [facility] [id number] [place] [address] 02306- 2878 Jul, [facility] [id number] [place] [address] 86853- 4124 Jul, [facility] [id number] [place] [address] 25869- 8946 Jul, Type 2 diabetes mellitus without complication E11.9 [facility] [id number] [place] [address] 08696- 1995 Jul, [facility] [address] [address]- 4478 Jul, Type 2 diabetes mellitus without complication E11.9 [facility] [address] [address]- 2938 Jul, [facility] [address] [address]- 2533 Jul, [facility] [address] [address]- 5065 Jul, [facility] [address] [address]- 0780 Jun, Type 2 diabetes mellitus without complication E11.9 [facility] [address] [address]- 4118 Jun, Chronic migraine G43.709 ; Type 2 diabetes mellitus without complication E11.9 ; Calculus of right kidney N20.0 ; Yeast dermatitis B37.2 and HSV (herpes simplex virus) infection B00.9 [facility] [id number] [place] [address] 60283- 1226 Jun, Type 2 diabetes mellitus without complication E11.9 [facility] [address] 25891- 3840 Jun, [facility] [address] 35955- 6976 Jun, Radiculopathy of lumbar region M54.16 and Chronic pain G89.29 [facility] [address] 30042- 3286 Jun, Encounter for Depo-Provera contraception Z30.42 [facility] [address] 52672- 1453 Jun, Type 2 diabetes mellitus without complication E11.9 [facility] [address] 91766- 6029 Jun, [facility] [id number] [place] [address] 22432 -7637 May, Acute nasopharyngitis (common cold) J00 [facility] [id number] [place] [address] 54138- 9150 May, Chronic pain G89.29 [facility] [address] 11342- 6443 May, Headache following lumbar puncture G97.1 [facility] [address] 40374- 8931 May, Radiculopathy of lumbar region M54.16 [facility] [address] 47814- 9384 Apr, [facility] [address] 35302- 7031 Apr, Type 2 diabetes mellitus without complication E11.9 ; Chronic pain G89.29 ; Essential hypertension I10 ; Radiculopathy of lumbar region M54.16 ; Spinal stenosis, lumbar region M48.06 ; Gastroesophageal reflux disease without esophagitis K21.9 ; HSV (herpes simplex virus) infection B00.9 ; Mixed hyperlipidemia E78.2 ; Anxiety F41.9 and Asthma J45.909 [facility] [id number] [place] [address] 41120- 8698 Apr, Encounter for Depo-Provera contraception Z30.42 [facility] [address] 85479- 9645 Apr, Chronic pain G89.29 and Anxiety F41.[address] 21220- 0017 Mar, [facility] [address] 16107- 2161 Mar, [facility] [address] 77256- 0631 Mar, Mixed hyperlipidemia E78.2 [facility] [id number] [place] [address] 87333- 9689 Mar, Type 2 diabetes mellitus without complication E11.9 ; Chronic pain G89.29 ; Essential hypertension I10 ; Radiculopathy of lumbar region M54.16 ; Spinal stenosis, lumbar region M48.06 ; Gastroesophageal reflux disease without esophagitis K21.9 ; HSV (herpes simplex virus) infection B00.9 ; Mixed hyperlipidemia E78.2 and Anxiety F41.9 [facility] [id number] [place] [address] 15559- 6621 Mar, [facility] [address] 74899- 5712 Mar, [facility] [id number] [place] [address] 47640- 8453 Mar, [facility] [id number] [place] [address] 01450- 1016 February, Chronic pain G89.29 [facility] [address] [address]- 2700 February, [facility] [id number] [place] [address] 12358- 2830 Jan, Chronic pain G89.29 [facility] [address] [place] [address] 19044- 1219 Jan, Type 2 diabetes mellitus without complication E11.9 [facility] [id number] [place] [address] 85048- 6481 Jan, [facility] [id number] [place] [address] 90539- 5232 Jan, [facility] [id number] [place] [address] 29572- 4482 Jan, [facility] [id number] [place] [address] 94400- 9237 Jan, Type 2 diabetes mellitus without complication [...] J01.00 and Encounter for Depo-Provera contraception Z30.42 [facility] [address] [address]- 6544 Dec, Chronic pain G89.29 [facility] [id number] [place] [address] 77793- 0435 Dec, Abnormal ankle brachial index (BERNARDINO) R68.89 [facility] [id number] [place] [address] 22190- 7917 Dec, [facility] [id number] [place] [address] 76763- 7539 Dec, Routine gynecological examination Z01.419 ; Chronic [...] virus) infection B00.9 and Allergic rhinitis 477.9 [facility] [id number] [place] [address] 74799- 9929 Nov, Chronic pain G89.29 [facility] [id number] [place] [address] 59271- 9336 02 Nov, 2016 Chronic pain G89.29 ; [...] mucoid otitis media of both ears H65.[address] [place] [address] 81941- 8925 Oct, [facility] [id number] [place] [address] 37158- 8436 Oct, Chronic pain G89.29 [facility] [id number] [place] [address] 33945- 9771 Oct, Chronic pain G89.29 [place] [id number] [place] [address] 98548- 3940 Sep, Chronic pain G89.29 ; Type 2 diabetes mellitus without complication E11.9 ; Essential hypertension I10 ; Radiculopathy of lumbar region M54.16 ; Spinal stenosis, lumbar region M48.06 ; Gastroesophageal reflux disease without esophagitis K21.9 ; Encounter for surveillance of injectable contraceptive Z30.42 ; Bilateral cold feet R20.9 ; Pain of left foot M79.672 and Pain in right foot M79.671 [facility] [id number] [place] [address] 84317- 2758 Sep, [facility] [id number] [place] [address] 84602- 0903 Aug, [facility] [address] 21964- 6724 Aug, [facility] [address] 48339- 3789 Aug, Chronic pain G89.29 ; Type 2 diabetes mellitus without complication E11.9 ; Essential hypertension I10 ; Rash and nonspecific skin eruption R21 and Upper respiratory infection, acute J06.9 [facility] [address] 17701- 2400 Aug, [facility] [address] 20186- 1149 Aug, [facility] [address] 06562- 5506 Jul, [facility] [id number] [place] [address] 81740- 2632 Jul, Dysuria R30.0 ; Encounter for Depo-Provera contraception Z30.42 ; Herpes simplex B00.9 ; Nausea & vomiting R11.2 and Asthma J45.909 [facility] [id number] [place] [address] 99109- 0004 Jun, Dysuria R30.0 [facility] [address] 26949- 7885 19 Jun, 2016 Dysuria R30.0 [facility] [address] 10241- 8719 15 Jun, 2016 [facility] [address] 91685- 5643 Jun, [facility] [id number] [place] [address] 91273- 2205 May, [facility] [id number] [place] [address] 76735- 9460 May, [facility] [id number] [place] [address] 34687- 9587 May, Chronic pain G89.29 ; Essential hypertension I10 ; Type 2 diabetes mellitus without complication E11.9 ; Edema of both feet R60.0 and Rash and nonspecific skin eruption R21 [facility] [id number] [place] [address] 47632- 1897 Apr, [facility] [id number] [place] [address] 52006- 3963 Mar, Carpal tunnel syndrome, left upper limb G56.02 and Carpal tunnel syndrome, right upper limb G56.01 [facility] [id number] [place] [address] 43385- 8194 Mar, [facility] [id number] [place] [address] 44489- 9221 Mar, Encounter for Depo-Provera contraception Z30.42 [facility] [id number] [place] [address] 19994- 8351 February, [facility] [id number] [place] [address] 43503- 7478 February, [facility] [id number] [place] [address] 71796- 1308 February, Chronic pain G89.29 ; Essential hypertension I10 ; Type 2 diabetes mellitus without complication E11.9 ; HSV (herpes simplex virus) infection B00.9 ; Anxiety F41.9 ; Hypersomnia G47.10 ; Tobacco abuse Z72.0 ; Hand pain, left M79.642 ; Hand pain, right M79.641 ; Left foot pain M79.672 and Heart palpitations R00.2 [facility] [address] [address]- 8586 Jan, [facility] [id number] [place] [address] 89707- 9809 Jan, [facility] [address] [place] [address] 14113- 4811 Jan, [facility] [id number] [place] [address] 40535- 4062 Jan, [facility] [id number] [place] [address] 04161- 7759 14 Jan, 2016 Upper respiratory infection J06.9 and Type 2 diabetes mellitus without complication E11.9 [facility] [id number] [place] [address] 46374- 5483 Dec, [place] [id number] [place] [address] 89877- 5672 Dec, Chronic pain G89.29 ; Essential hypertension I10 ; Type 2 diabetes mellitus without complication E11.9 ; HSV (herpes simplex virus) infection B00.9 ; Anxiety F41.9 ; Upper respiratory infection J06.9 ; Hypersomnia G47.10 and Tobacco abuse Z72.0 [address] [address]- 8841 Dec, Encounter for Depo-Provera contraception Z30.42 [place] [id number] [place] [address] 21432- 1632 Dec, [place] [id number] [place] [address] 13502- 2120 Dec, Chronic pain G89.29 ; Sinusitis J32.9 ; Snoring R06.83 and Daytime hypersomnia G47.19 [address] [address]- 8215 Nov, HSV (herpes simplex virus) infection B00.9 ; Encounter for Papanicolaou smear for cervical cancer screening Z12.4 ; Screening for STD sexually transmitted disease Z11.3 and Bartholin's gland cyst N75.0 [facility] [id number] [place] [address] 26263- 8185 Nov, [facility] [id number] [place] [address] 80180- 6987 Nov, [facility] [id number] [place] [address] 64044- 9165 Nov, Essential hypertension I10 ; Type 2 diabetes mellitus without complication E11.9 ; HSV (herpes simplex virus) infection B00.9 ; Spinal stenosis, lumbar region M48.06 and Vaginal yeast infection B37.3 [facility] [id number] [place] [address] 14353- 6135 Nov, [facility] [id number] [place] [address] 24162- 5546 Nov, [facility] [id number] [place] [address] 19116- 7516 Oct, [facility] [id number] [place] [address] 82648- 3309 Oct, HSV (herpes simplex virus) infection B00.9 ; Yeast infection B37.9 ; Change in bowel habit R19.4 ; Nausea & vomiting R11.2 and Gastroesophageal reflux disease without esophagitis K21.9 [facility] [address] [place] [address] 32800- 5381 Oct, [facility] [id number] [place] [address] 07114- 0325 Oct, Type 2 diabetes mellitus without complication E11.9 ; Essential hypertension I10 and Acute maxillary sinusitis, recurrence not specified J01.00 [facility] [address] [place] [address] 01083- 5090 Oct, [facility] [id number] [place] [address] 86025- 8196 Oct, [facility] [place] 92348- 9942 Oct, Exposure to head lice Z20.7 ; Blood glucose abnormal R73.09 ; Boil of buttock L02.32 and Type 2 diabetes mellitus without complication E11.[address] 35995- 4445 Oct, [address] 02847- 4024 Sep, [address] 04901- 9855 Sep, [address] 51012- 0809 Aug, Encounter for Depo-Provera contraception Z30.[address] 61558- 3404 Aug, Anxiety F41.9 ; Spinal stenosis, lumbar region M48.06 ; Radiculopathy of lumbar region M54.16 ; Asthma J45.909 ; GERD (gastroesophageal reflux disease) K21.9 ; Essential hypertension I10 and Long-term use of high- risk medication Z79.[address] 56920- 1782 Jul, [address] 33041- 2743 Jun, Hemorrhoid 455.[address] 87964- 7710 Jun, [address] 42882- 7245 Jun, Anxiety 300.00 ; Asthma 493.90 ; Hyperhidrosis 705.21 ; Chest discomfort 786.59 and Upper respiratory infection 465.[address] 46370- 0015 May, Encounter for Depo-Provera contraception V25.49 [facility] [address] [place] [address] 48602- 7246 May, [facility] [id number] [place] [address] 70056- 6010 May, [facility] [id number] [place] [address] 64367- 0907 May, Spinal stenosis of lumbar region with radiculopathy 724.02 ; Bulging of intervertebral disc between L4 and L5 722.10 ; GERD ( gastroesophageal reflux disease) 530.81 ; Chronic pain 338.29 ; Declining mobility 799.89 and Epigastric pain 789.06 [place] [address] 25890- 4645 Apr, [place] [address] 97497- 8345 Apr, Nausea 787.02 and Heart burn 787.1 [place] [facility] [address] 18390- 7791 Mar, Lumbago 724.2 ; Vitamin D deficiency 268.9 ; Anxiety 300.00 ; Allergic rhinitis 477.9 and Contraceptive surveillance V25.40 [facility] [id number] [place] [address] 79022- 5183 February, 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 ; Chronic pain 338.29 and Vaginal discharge 623.5 [facility] [place] [id number] [place] [address] 76844- 7097 February, [place] [id number] [place] [address] 14188- 5487 February, [place] [id number] [place] [address] 13615- 6057 Jan, [facility] [place] [id number] [place] [address] 87179- 3332 Jan, [place] [address] [place] [address] [place] [address]- 4526 26 Dec, 2014 [facility] [place] [facility] [address] [id number] [address]- 0785 Dec, [facility] [place] [facility] [address] [id number] [place] [address]- 9331 Dec, [facility] [place] [facility] [address] [id number] [place] [address]- 5869 Dec, [facility] [place] [facility] [address] [id number] [place] [address]- 0885 18 Dec, 2014 [facility] [place] [facility] [address] [id number] [place] [address]- 5604 18 Dec, 2014 [facility] [place] [facility] [address] [id number] [place] [address]- 5599 Dec, [facility] [place] [facility] [address] [id number] [place] [address]- 0990 Dec, [facility] [place] [facility] [address] [id number] [place] [address]- 0161 Dec, [facility] [place] [facility] [address] [id number] [place] [address]- 7177 Dec, [facility] [place] [facility] [address] [facility] [id number] [place] [address]- 1944 Dec, [facility] [place] [facility] [address] [id number] [place] [address]- 3787 Dec, [facility] [place] [facility] [address] [id number] [place] [address]- 0554 Nov, [facility] [place] [facility] [address] [id number] [place] [address]- 5835 Nov, [facility] [place] [facility] [address] [id number] [place] [address]- 0534 Nov, [facility] [place] [facility] [address] [id number] [place] [address]- 7984 Nov, [facility] [place] [facility] [address] [id number] [place] [address]- 0116 23 Nov, 2014 [facility] [place] [facility] [address] [id number] [place] [address]- 5435 23 Nov, 2014 [facility] [place] [facility] [address] [facility] [id number] [place] [address]- 8151 16 Nov, 2014 [facility] [place] [facility] [address] [facility] [id number] [place] [address] 16 Nov, 2014 [facility] [place] [facility] [address] [id number] [place] [address] 13 Nov, 2014 [facility] [place] [facility] [address] [facility] [id number] [place] [address] 13 Nov, 2014 [facility] [place] [facility] [address] [facility] [id number] [place] [address] 13 Nov, 2014 [facility] [place] [facility] [address] [facility] [id number] [place] [address]- [address] 13 Nov, 2014 [facility] [place] [facility] [address] [facility] [id number] [place] [address]- 139[address] 13 Nov, 2014 [facility] [place] [facility] [address] [facility] [id number] [place] [address] 76[address] 13 Nov, 2014 [facility] [place] [facility] [address] [facility] [id number] [place] [address]- [address] 13 Nov, 2014 [facility] [place] [facility] [address] [facility] [id number] [place] [address] 13 Nov, 2014 [facility] [place] [facility] [address] [facility] [id number] [place] [address] 10 Nov, 2014 [facility] [place] [facility] [address] [facility] [id number] [place] [address]- [address] 10 Nov, 2014 [facility] [place] [facility] [address] [facility] [id number] [place] [address]- [address] 09 Nov, 2014 [facility] [place] [facility] [address] [id number] [place] [address] Nov, [facility] [place] [facility] [address] [id number] [place] [address] Nov, [facility] [place] [facility] [address] [id number] [place] [address] Nov, [facility] [place] [facility] [address] [id number] [place] [address] Nov, [facility] [place] [facility] [address] [id number] [place] [address] Oct, [facility] [place] [facility] [address] [id number] [place] [address] Oct, [facility] [place] [facility] [address] [id number] [place] [address] 1473 Oct, [facility] [place] [facility] [address] [id number] [place] [address] 5971 Oct, [facility] [place] [facility] [address] [id number] [place] [address] 8107 Oct, [facility] [place] [facility] [address] [id number] [place] [address] 8845 Oct, [facility] [place] [facility] [address] [id number] [place] [address] 1849 Oct, [facility] [place] [facility] [address] [id number] [place] [address] Oct, [facility] [place] [facility] [address] [id number] [place] [address] 1832 Oct, [facility] [place] [facility] [address] [id number] [place] [address]- 0897 Oct, [facility] [place] [facility] [address] [id number] [place] [address] 8448 Oct, [facility] [place] [facility] [address] [id number] [place] [address] 76[address] Oct, [facility] [address] [id number] [place] [address] 6585 Oct, [facility] [place] [facility] [address] [id number] [place] [address]- 0145 Oct, [facility] [place] [facility] [address] [facility] [id number] [place] [address] 1223 Oct, [facility] [place] [facility] [address] [id number] [place] [address]- 6838 Oct, [facility] [place] [facility] [address] [id number] [place] [address]- 8400 Oct, [facility] [place] [facility] [address] [id number] [place] [address]- 7738 Oct, [facility] [address] [id number] [place] [address]60 Oct, [facility] [place] [facility] [address] [id number] [place] [address]- 5855 Oct, [facility] [place] [facility] [address] [id number] [place] [address]- 5767 Oct, [facility] [place] [facility] [address] [facility] [id number] [place] [address]- 5852 Sep, [facility] [place] [facility] [address] [id number] [place] [address]- 0747 29 Sep, 2014 [facility] [place] [facility] [address] [id number] [place] [address]- 71[address] Sep, [facility] [place] [facility] [address] [id number] [place] [address]- 8959 18 Sep, 2014 [facility] [place] [facility] [address] [facility] [id number] [place] [address]- 7540 17 Sep, 2014 [facility] [place] [facility] [address] [facility] [id number] [place] [address]- 5726 17 Sep, 2014 [facility] [place] [facility] [address] [id number] [place] [address]- 9316 15 Sep, 2014 [facility] [place] [facility] [address] [id number] [place] [address]- 6216 15 Sep, 2014 [facility] [place] [facility] [address] [id number] [place] [address]- 8306 12 Sep, 2014 [facility] [place] [facility] [address] [id number] [place] [address]- 6756 12 Sep, 2014 [facility] [place] [facility] [address] [id number] [place] [address]- 2095 Sep, [facility] [place] [facility] [address] [id number] [place] [address]- 5443 Sep, [facility] [place] [facility] [address] [id number] [place] [address]- 5532 Sep, [facility] [place] [facility] [address] [id number] [place] [address]- 7815 Sep, [facility] [place] [facility] [address] [id number] [place] [address]- 4239 Sep, [facility] [place] [facility] [address] [id number] [place] [address]- 2596 Sep, [facility] [place] [facility] [address] [id number] [place] [address]- 7417 Sep, [facility] [place] [facility] [address] [id number] [place] [address]- 6925 Sep, [facility] [place] [facility] [address] [id number] [place] [address]- 6518 Sep, [facility] [place] [facility] [address] [id number] [place] [address]- 0276 Sep, [facility] [place] [facility] [address] [id number] [place] [address]- 1832 Aug, [facility] [place] [facility] [address] [id number] [place] [address]- 1040 Aug, [facility] [place] [facility] [address] [id number] [place] [address]- 3137 Aug, [facility] [place] [facility] [address] [id number] [place] [address]- 0713 Aug, [facility] [place] [facility] [address] [id number] [place] [address]- 4014 Aug, [facility] [place] [facility] [address] [id number] [place] [address]- 4311 Aug, [facility] [place] [facility] [address] [id number] [place] [address]- 5143 Aug, [facility] [place] [facility] [address] [id number] [place] [address]- 6527 Aug, [facility] [place] [facility] [address] [id number] [place] [address]- 0747 Aug, [facility] [place] [facility] [address] [id number] [place] [address]- 5909 Jul, [facility] [place] [facility] [address] [id number] [place] [address]- 7486 Jul, [facility] [place] [facility] [address] [id number] [place] [address]- 7255 Jul, [facility] [place] [facility] [address] [id number] [place] [address]- 5746 Jul, [facility] [place] [facility] [address] [id number] [place] [address]- 2251 Jul, [facility] [place] [facility] [address] [id number] [place] [address]- 1867 16 Jul, 2014 [facility] [place] [facility] [address] [id number] [place] [address]- 8351 Jul, [facility] [place] [facility] [address] [id number] [place] [address]- 5881 Jul, [facility] [place] [facility] [address] [id number] [place] [address]- 6080 10 Jul, 2013 [facility] [place] [facility] [address] [id number] [place] [address]- 6406 10 Jul, 2013 [facility] [place] [facility] [address] [id number] [place] [address]- 5246 10 Jul, 2014 [facility] [place] [facility] [address] [id number] [place] [address]- 3024 10 Jul, 2014 [facility] [place] [facility] [address] [id number] [place] [address]- 0228 07 Jul, 2014 [facility] [place] [facility] [address] [id number] [place] [address]- 8831 07 Jul, 2014 [facility] [place] [facility] [address] [id number] [place] [address]- 0741 30 Jun, 2013 [facility] [place] [facility] [address] [id number] [place] [address]- 6381 30 Jun, 2013 [facility] [place] [facility] [address] [id number] [place] [address] 254 25 Sep, 2013 [facility] [place] [facility] [address] [id number] [place] [address] 2546 25 Sep, 2013 [facility] [place] [facility] [address] [id number] [place] [address] 254 25 Sep, 2013 [facility] [place] [facility] [address] [id number] [place] [address] 2546 25 Sep, 2013 [facility] [place] [facility] [address] [id number] [place] [address] 2546 24 Sep, 2013 [facility] [place] [facility] [address] [id number] [place] [address] 2546 24 Sep, 2013 [facility] [place] [facility] [address] [id number] [place] [address] 2546 22 Sep, 2013 [facility] [place] [facility] [address] [id number] [place] [address] 2545 22 Sep, 2013 [facility] [place] [facility] [address] [id number] [place] [address]- 2518 17 Sep, 2013 [facility] [place] [facility] [address] [id number] [place] [address]- 7148 17 Sep, 2013 [facility] [place] [facility] [address] [id number] [place] [address]- 2542 16 Jun, 2013 [facility] [place] [facility] [address] [id number] [place] [address] 2549 16 Jun, 2013 [facility] [place] [facility] [address] [id number] [place] [address]- 3051 15 Jun, 2013 [facility] [place] [facility] [address] [id number] [place] [address]- 0008 15 Jun, 2013 [facility] [place] [facility] [address] [id number] [place] [address]- 1062 12 Jun, 2013 [facility] [place] [facility] [address] [id number] [place] [address]- 8940 12 Jun, 2013 [facility] [place] [facility] [address] [id number] [place] [address]- 4775 11 Jun, 2013 [facility] [place] [facility] [address] [id number] [place] [address]- 6288 11 Jun, 2013 [facility] [place] [facility] [address] [id number] [place] [address]- 3509 11 Jun, 2013 [facility] [place] [facility] [address] [id number] [place] [address]- 2549 11 Jun, 2013 [facility] [place] [facility] [address] [id number] [place] [address]- 2543 09 Sep, 2013 [facility] [place] [facility] [address] [id number] [place] [address]- 2543 09 Sep, 2013 [facility] [place] [facility] [address] [id number] [place] [address]- 9362 03 Sep, 2013 [facility] [place] [facility] [address] [id number] [place] [address]- 9262 Jun, [facility] [place] [facility] [address] [id number] [place] [address]- 3653 May, [facility] [place] [facility] [address] [id number] [place] [address]- 5083 May, [facility] [place] [facility] [address] [id number] [place] [address]- 0972 May, [facility] [place] [facility] [address] [id number] [place] [address]- 1958 May, [facility] [place] [facility] [address] [id number] [place] [address]- 7219 May, [facility] [place] [facility] [address] [id number] [place] [address]- 8217 May, [facility] [place] [facility] [address] [id number] [place] [address]- 3572 May, [facility] [place] [facility] [address] [id number] [place] [address]- 2518 May, [facility] [place] [facility] [address] [id number] [place] [address]- 9055 May, [facility] [place] [facility] [address] [id number] [place] [address]- 8941 May, [facility] [place] [facility] [address] [id number] [place] [address]- 3494 May, [facility] [place] [facility] [address] [id number] [place] [address]- 5306 May, [facility] [place] [facility] [address] [id number] [place] [address]- 8514 May, [facility] [place] [facility] [address] [id number] [place] [address]- 4472 Apr, [facility] [place] [facility] [address] [id number] [place] [address]- 5190 Apr, [facility] [place] [facility] [address] [id number] [place] [address]- 6304 Apr, [facility] [address] [id number] [place] [address]- 0829 Apr, [facility] [place] [facility] [address] [id number] [place] [address]- 4676 Apr, [facility] [address] [id number] [place] [address]- 3259 Mar, [facility] [place] [facility] [address] [id number] [place] [address]- 0521 Mar, [facility] [address] [id number] [place] [address]- 9800 Mar, [facility] [address] [id number] [place] [address]- 9726 February, [facility] [place] [facility] [address] [id number] [place] [address]- 2776 February, [facility] [address] [id number] [place] [address]- 7611 February, [facility] [place] [facility] [address] [id number] [place] [address]- 6856 February, [facility] [address] [id number] [place] [address]- 1621 February, [facility] [place] [facility] [address] [id number] [place] [address]- 5157 February, [facility] [place] [facility] [address] [id number] [place] [address]- 6251 February, [facility] [place] [facility] [address] [id number] [place] [address]- 7937 February, [facility] [place] [facility] [address] [id number] [place] [address]- 0136 February, [facility] [place] [facility] [address] [id number] [place] [address]31 Jan, [facility] [place] [facility] [address] [id number] [place] [address]- 2347 Jan, [facility] [place] [facility] [address] [id number] [place] [address]- 6422 Jan, [facility] [place] [facility] [address] [id number] [place] [address]- 8860 Jan, [facility] [place] [facility] [address] [id number] [place] [address]- 9439 Jan, [facility] [place] [facility] [address] [id number] [place] [address]- 4781 Dec, [facility] [place] [facility] [address] [id number] [place] [address]- 9168 Dec, [facility] [place] [facility] [address] [id number] [place] [address]- 1214 Dec, [facility] [place] [facility] [address] [id number] [place] [address]- 2105 Dec, [facility] [place] [facility] [address] [id number] [place] [address]- 7254 Dec, [facility] [place] [facility] [address] [id number] [place] [address]- 1453 Nov, [facility] [place] [facility] [address] [id number] [place] [address]- 5464 Nov, [facility] [place] [facility] [address] [id number] [place] [address]- 5703 Nov, [facility] [place] [facility] [address] [id number] [place] [address]- 2459 Nov, [facility] [place] [facility] [address] [id number] [place] [address] Oct, [facility] [place] [facility] [address] [id number] [place] [address]- 0156 Oct, [facility] [place] [facility] [address] [id number] [place] [address]- 0323 28 Oct, 2013 [facility] [place] [facility] [address] [id number] [place] [address]- 8160 Oct, [facility] [place] [facility] [address] [id number] [place] [address]- 0707 Oct, [facility] [place] [facility] [address] [id number] [place] [address]- 6551 Oct, [facility] [place] [facility] [address] [id number] [place] [address]- 1467 Oct, [facility] [place] [facility] [address] [id number] [place] [address]- 7835 Oct, [facility] [place] [facility] [address] [id number] [place] [address]- 4262 Oct, [facility] [place] [facility] [address] [id number] [place] [address]- 3291 Oct, [facility] [place] [facility] [address] [id number] [place] [address]- 3773 Aug, [facility] [place] [facility] [address] [id number] [place] [address]- 4935 Aug, [facility] [place] [facility] [address] [id number] [place] [address]- 2617 Jul, [facility] [place] [facility] [address] [id number] [place] [address]- 8337 Jul, [facility] [place] [facility] [address] [id number] [place] [address]- 6248 Jul, [facility] [place] [facility] [address] [id number] [place] [address]- 3158 Jul, [facility] [place] [facility] [address] [id number] [place] [address]- 8608 Jul, [facility] [place] [facility] [address] [id number] [place] [address]- 0972 Jul, [facility] [place] [facility] [address] [id number] [place] [address]- 2820 Apr, [facility] [place] [facility] [address] [id number] [place] [address]- 6780 Dec, [facility] [place] [facility] [address] [id number] [place] [address]- 7313 Nov, [facility] [place] [facility] [address] [id number] [place] [address]- 0178 Nov, [facility] [place] [facility] [address] [id number] [place] [address]- 0872 Nov, [facility] [place] [facility] [address] [id number] [place] [address]- 1870 Oct, [facility] [place] [facility] [address] [id number] [place] [address]- 2611 Sep, [facility] [place] [facility] [address] [id number] [place] [address]- 0677 Sep, [facility] [place] [facility] [address] [id number] [place] [address]- 9869 Sep, [facility] [place] [facility] [address] [id number] [place] [address]- 4614 Sep, [facility] [place] [facility] [address] [id number] [place] [address]- 0415 Aug, [facility] [place] [facility] [address] [id number] [place] [address]- 9386 Aug, [facility] [place] [facility] [address] [id number] [place] [address]- 9305 Jul, [facility] [place] [facility] [address] [id number] [place] [address]- 9507 Jul, [facility] [place] [facility] [address] [id number] [place] [address]- 6489 28 Jun, 2012 [facility] [place] [facility] [address] [id number] [place] [address]- 5383 26 Jun, 2012 [facility] [place] [facility] [address] [id number] [place] [address]- 8836 24 Jun, 2012 [facility] [place] [facility] [address] [id number] [place] [address]- 0006 24 Jun, 2012 [facility] [place] [facility] [address] [id number] [place] [address]- 0886 Jun, [facility] [place] [facility] [address] [id number] [place] [address]- 2004 31 Apr, 2012 [facility] [place] [facility] [address] [id number] [place] [address]- 0627 30 Apr, 2012 [facility] [place] [facility] [address] [id number] [place] [address]- 7739 Apr, [facility] [address] [id number] [place] [address]- 0160 Mar, [facility] [place] [facility] [address] [id number] [place] [address]- 9406 Mar, [facility] [place] [facility] [address] [id number] [place] [address]- 6674 Mar, [facility] [place] [facility] [address] [id number] [place] [address]- 7394 February, [facility] [place] [facility] [address] [id number] [place] [address]- 1551 Jan, [facility] [place] [facility] [address] [id number] [place] [address]- 3547 Dec, [facility] [place] [facility] [address] [id number] [place] [address]- 7481 Dec, [facility] [place] [facility] [address] [id number] [place] [address]- 9330 Dec, [facility] [place] [facility] [address] [id number] [place] [address]- 3118 Dec, [facility] [place] [facility] [address] [id number] [place] [address]- 5706 Dec, [facility] [place] [facility] [address] [id number] [place] [address]- 5819 14 Nov, 2011 [facility] [place] [facility] [address] [id number] [place] [address]- 0376 13 Nov, 2011 [facility] [place] [facility] [address] [id number] [place] [address]- 6656 Oct, [facility] [place] [facility] [address] [id number] [place] [address]- 2879 Oct, [facility] [place] [facility] [address] [id number] [place] [address]- 0102 Oct, [facility] [place] [facility] [address] [id number] [place] [address]- 7622 Sep, [facility] [place] [facility] [address] [id number] [place] [address]- 8026 Aug, [facility] [place] [facility] [address] [id number] [place] [address]- 7356 Aug, [facility] [place] [facility] [address] [id number] [place] [address]- 8455 Jul, [facility] [place] [facility] [address] [id number] [place] [address]- 8792 24 Jul, 2011 [facility] [place] [facility] [address] [id number] [place] [address]- 8301 19 Jul, 2011 [facility] [place] [facility] [address] [id number] [place] [address]- 8462 13 Jan, 2011 [facility] [place] [facility] [address] [id number] [place] [address]- 2547 29 Sep, 2010 [facility] [place] [facility] [address] [id number] [place] [address] 27 Sep, 2010 [facility] [place] [facility] [address] [id number] [place] [address] Sep, [facility] [place] [facility] [address] [id number] [place] [address] Sep, [facility] [place] [facility] [address] [id number] [place] [address] Sep, [facility] [place] [facility] [address] [facility] [id number] [place] [address] Aug, [facility] [place] [facility] [address] [id number] [place] [address] 16 Aug, 2010 [facility] [place] [facility] [address] [id number] [place] [address] Aug, [facility] [place] [facility] [address] [id number] [place] [address] Jul, [facility] [place] [facility] [address] [id number] [place] [address] Jul, [facility] [place] [facility] [address] [id number] [place] [address] Jul, [facility] [place] [facility] [address] [id number] [place] [address] May, [facility] [place] [facility] [address] [id number] [place] [address] Apr, [facility] [place] [facility] [address] [id number] [place] [address] Dec, [facility] [place] [facility] [address] [id number] [place] [address] 17 Sep, 2009 [facility] [place] [facility] [address] [id number] [place] [address] 17 Sep, 2009 [facility] [place] [facility] [address] [id number] [place] [address] Aug, [facility] [place] [facility] [address] [id number] [place] [address] Aug, [facility] [place] [facility] [address] [facility] [id number] [place] [address] Jul, [facility] [address] [facility] [id number] [place] [address] Mar, IMMUNIZATIONS No Known Immunizations SOCIAL HISTORY [...]
--- OUTSIDE RECORDS SUMMARY | 2018-10-08 20:20 | XMS REPORT ---
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 Name Role Phone JENNY WOLF Unavailable PROBLEMS Type Condition ICD9-CM Code [id number] Code Onset Dates Condition Status SNOMED Code Problem Daytime hypersomnia G47.19 Active 20862237912424 Problem Tobacco abuse Z72.0 Active 67379480 Problem Snoring R06.83 Active 55364232 Problem Mixed hyperlipidemia E78.2 Active 595582091 Problem Edema of both feet R60.0 Active 413918704 Problem Hand pain, left M79.642 Active 29146838 Problem Hypersomnia G47.10 Active 35400891 Problem Hand pain, right M79.641 Active 35433535 Problem Heart palpitations R00.2 Active 37217284 Problem Anxiety F41.9 Active 67097205 Problem Essential hypertension I10 Active 92032266 Problem Spinal stenosis, lumbar region M48.06 Active 44454131 Problem Asthma J45.909 Active 595195861 Problem Type 2 diabetes mellitus without complication E11.9 Active 50281226 Problem Chronic pain G89.29 Active 87067975 Problem Bulging lumbar disc M51.26 Active 247597978 Problem Gastroesophageal reflux disease without esophagitis K21.9 Active 077375379 Problem Radiculopathy of lumbar region M54.16 Active 635098521 Problem HSV (herpes simplex virus) infection B00.9 Active 31359599 ALLERGIES Substance Reaction Event Type Date Status Prozac severe nightmares Drug Allergy Nov, Active Levaquin Unknown Drug Allergy Nov, Active Diclofenac Sodium rash Drug Allergy Nov, Active ChloraPrep One Step Unknown Drug Allergy Nov, Active Quinolones Unknown Non Drug Allergy Nov, Active SOCIAL HISTORY No smoking Hx information available PLAN OF CARE Activity Details Follow Up 3-4 weeks Reason:DM/ANNUAL VITAL SIGNS Height 63 in 2016-11-22 Weight 221.6 lbs 2016-11-22 Temperature 97.8 degrees Fahrenheit 2016-11-22 Heart Rate 90 bpm 2016-11-22 Respiratory Rate 24 2016-11-22 BMI 39.25 kg/m2 2016-11-22 Blood pressure systolic 122 mmHg 2016-11-22 Blood pressure diastolic 76 mmHg 2016-11-22 MEDICATIONS Medication Instructions Dosage Frequency Start Date End Date Duration Status Lisinopril 5 MG Orally Once a day 1 tablet 24h 30 day(s) Active Metoprolol Tartrate 25 MG Orally Twice a day 1 tablet with food 12h Active Robaxin 500 MG Orally 3 times a day 1 tablet 8h Active Augmentin 875-125 MG Orally every 12 hrs 1 tablet 12h Nov,Nov 10 day(s) Active Flonase 50 mcg/actuation Nasally Once a day 1 sprays by Nasal route 2 times per day in each nostril 24h May, 30 days Active Glimepiride 2 MG Orally twice a day 1 tablet 12h 90 Active Imitrex 100 MG Orally Once a day prn 1 tablet by Oral route 1 time per day and repeat once more after 2 hours if headache recurs PRN May, Active Clorazepate Dipotassium 15 MG Orally 3 times a day prn must last 28 days. 1 tablet Active Cane 1 as directed 24h May, 99 days Active Pantoprazole Sodium 20 mg Orally Once a day 1 tablet 24h Active Hydrocodone-Acetaminophen 5-325 MG Orally four times a day as needed for pain. Must last 28 days. 1 tablet Active Blood Glucose Monitor System w/Device test blood sugar Oct, Active Bydureon 2 MG Subcutaneous weekly inject 2 mg Aug, 28 days Active Promethazine HCl 25 MG Orally every 6 hrs prn 1 tablet as needed 7 Active ProAir HFA 108 (90 Base) MCG/ACT Inhalation every 4 hrs prn 2 puffs as needed Jun, 30 days Active Azithromycin 250 MG Orally Once a day 2 tablets on the first day, then 1 tablet daily for 4 days 24h Oct, 5 Nov, 2016 Active Nystatin 470946 UNIT/GM Externally three times a day 1 application to affected area 8h Oct, Active Lyrica 150 MG Orally Three times a day 1 capsule 8h Active Nabumetone 500 MG Orally Twice a day 1 tablet 12h 18 May, 2015 Active Zovirax 5 % Externally Twice a day 1 application to affected area 12h Active Carafate 1 GM orally twice daily 1 tablet Active MS Contin 15 MG Orally every 12 hrs as needed must last 28 days 1 tablet Active Symbicort 80-4.5 MCG/ACT Inhalation Twice a day 2 puffs 12h Jul, Active Valacyclovir HCl 1 GM Orally every 24 hrs 1 tablet 30 Active Lidocaine 5 % Externally Three times a day 1 application to affected area as needed 8h Active RESULTS No Results PROCEDURES Procedure Date Ordered Related Diagnosis Body Site Office Visit, Est Pt., Level 5 Nov 22, 2016 DEPO PROVERA (150 MG/ML) Nov 22, 2016 THER/PROPH/DIAG INJ, SC/IM Nov 22, 2016 IMMUNIZATIONS Vaccine Route Administration Date Status DEPO PROVERA (150 MG/ML) IM Intramuscular Nov 22, 2016 Administered
--- OUTSIDE RECORDS SUMMARY | 2018-10-08 20:21 | XMS REPORT ---
Author Author JENNY WOLF [facility] Address [address] [place] [address] Care Team Providers Care Hotel Val[employer] Attendant Name Role Phone JENNY WOLF Unavailable PROBLEMS Type Condition ICD9-CM Code CHA84-MF Code Onset Dates Condition Status SNOMED Code Problem Chronic pain G89.29 Active 01963617 Problem HSV (herpes simplex virus) infection B00.9 Active 01321440 Problem Gastroesophageal reflux disease without esophagitis K21.9 Active 719654194 Problem Type 2 diabetes mellitus with diabetic neuropathy, unspecified E11.40 Active 08647835 Problem watermaster 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 Z79.4 Active 900306410 Problem Edema of both feet R60.0 Active 211677021 Problem Tobacco abuse Z72.0 Active 20984051 Problem Chronic migraine G43.709 Active 46214066 Problem Mixed hyperlipidemia E78.2 Active 332468198 Problem Spinal stenosis, lumbar region M48.06 Active 21258144 Problem Anxiety F41.9 Active 07158662 Problem Radiculopathy of lumbar region M54.16 Active 657254752 Problem Bulging lumbar disc M51.26 Active 646134585 Problem Asthma J45.909 Active 727945041 Problem Essential hypertension I10 Active 76099240 ALLERGIES No Information ENCOUNTERS Encounter Location Date Diagnosis [facility] [id number], [place] [address] 14 Dec, 2017 [facility] [id number] [place] [address] 79743- 3070 Dec, Gastroesophageal reflux disease without esophagitis K21.9 and Anxiety F41.9 [facility] [id number], [place] [address] 3931 Dec, Essential hypertension I10 ; Mixed hyperlipidemia E78.2 ; Type 2 diabetes mellitus with diabetic neuropathy, unspecified E11.40 ; watermaster 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 Z79.4 ; Chronic pain G89.29 ; HSV (herpes simplex virus) infection B00.9 ; Anxiety F41.9 and Gastroesophageal reflux disease without esophagitis K21.9 [id number] [place] [address] 94381- 5641 Dec, Chronic pain G89.29 and Chronic migraine G43.[address] 60584- 1032 Nov, [address] 35472- 5037 Nov, Essential hypertension I10 and Chronic pain G89.[address] 28591- 5807 Nov, Chronic pain G89.29 ; Essential hypertension I10 and Type 2 diabetes mellitus without complication E11.[address] 46225- 1031 Oct, Chronic pain G89.[address] 94304- 7465 Oct, [place] [id number] [place] [address] 75400- 7211 Sep, Type 2 diabetes mellitus without complication E11.9 ; Essential hypertension I10 ; watermaster (current) use of insulin Z79.4 ; Chronic migraine G43.709 ; Chronic pain G89.29 and Acute non-recurrent maxillary sinusitis J01.00 [id number] [place] [address] 72305- 4860 Sep, Encounter for Depo-Provera contraception Z30.[address] 90107- 6059 Sep, Chronic pain G89.29 and Radiculopathy of lumbar region M54.[address] 86265- 0649 Sep, [facility] [address], [place] [address]- 9741 Sep, [facility] [id number] [place] [address] 13738- 0329 Aug, Type 2 diabetes mellitus without complication E11.9 [facility] [address], [place] [address]- 0491 Aug, [facility] [id number] [place] [address] 42222- 6679 Aug, Radiculopathy of lumbar region M54.16 and Chronic pain G89.29 [facility] [id number] [place] [address] 88396- 0728 Aug, Type 2 diabetes mellitus without complication E11.9 [facility] [address] [place] [address] 34889- 0554 Aug, Type 2 diabetes mellitus without complication E11.9 [facility] [address] [place] [address] 55242- 2912 Jul, Type 2 diabetes mellitus without complication E11.9 [facility] [address] [place] [address] 24321- 8212 Jul, [facility] [address], [place] [address]- 1532 Jul, Chronic pain G89.29 [facility] [address], [place] [address]- 7065 Jul, [facility] [address], [place] [address]- 3627 Jul, [facility] [address], [place] [address]- 9656 Jul, Type 2 diabetes mellitus without complication E11.9 [facility] [address], [place] [address]- 0244 Jul, [facility] [id number] [place] [address] 55358- 6800 12 Jul, 2017 Type 2 diabetes mellitus without complication E11.9 [facility] [address] 13927- 0255 11 Jul, 2017 [facility] [address] 90084- 0237 Jul, [place] [address] 22322- 6755 Jul, [facility] [address] 52133- 0270 27 Jun, 2017 Type 2 diabetes mellitus without complication E11.9 [place] [address] 56391- 4338 26 Jun, 2017 Chronic migraine G43.709 ; Type 2 diabetes mellitus without complication E11.9 ; Calculus of right kidney N20.0 ; Yeast dermatitis B37.2 and HSV (herpes simplex virus) infection B00.9 [place] [id number] [place] [address] 12295- 3646 Jun, Type 2 diabetes mellitus without complication E11.9 [place] [id number] [place] [address] 73686- 7670 Jun, [place] [id number] [place] [address] 43094- 7258 Jun, Radiculopathy of lumbar region M54.16 and Chronic pain G89.29 [place] [id number] [place] [address] 41132- 4959 Jun, Encounter for Depo-Provera contraception Z30.42 [place] [address] 04776- 9294 Jun, Type 2 diabetes mellitus without complication E11.9 [facility] [id number] [place] [address] 08435- 7042 10 Jun, 2017 [facility] [id number] [place] [address] May, Acute nasopharyngitis (common cold) J00 [place] [address] 67173- 1046 May, Chronic pain G89.29 [place] [address] 36556- 7288 May, Headache following lumbar puncture G97.1 [place] [address] 01313- 7374 May, Radiculopathy of lumbar region M54.16 [place] [address] 65141- 1249 Apr, [place] [address] 16839- 2570 Apr, Type 2 diabetes mellitus without complication E11.9 ; Chronic pain G89.29 ; Essential hypertension I10 ; Radiculopathy of lumbar region M54.16 ; Spinal stenosis, lumbar region M48.06 ; Gastroesophageal reflux disease without esophagitis K21.9 ; HSV (herpes simplex virus) infection B00.9 ; Mixed hyperlipidemia E78.2 ; Anxiety F41.9 and Asthma J45.909 [id number] [place] [address] 20237- 9732 Apr, Encounter for Depo-Provera contraception Z30.42 [place] [id number] [place] [address] 06180- 4386 Apr, Chronic pain G89.29 and Anxiety F41.9 [place] [id number] [place] [address] 13012- 5114 Mar, [place] [address] 63827- 5861 Mar, [place] [address] 81247- 0442 Mar, Mixed hyperlipidemia E78.2 [place] [id number], [place] [address]- 1731 Mar, Type 2 diabetes mellitus without complication E11.9 ; Chronic pain G89.29 ; Essential hypertension I10 ; Radiculopathy of lumbar region M54.16 ; Spinal stenosis, lumbar region M48.06 ; Gastroesophageal reflux disease without esophagitis K21.9 ; HSV (herpes simplex virus) infection B00.9 ; Mixed hyperlipidemia E78.2 and Anxiety F41.9 [facility] [id number] [place] [address] 53487- 2497 Mar, [facility] [id number] [place] [address] 81920- 9511 Mar, [facility] [id number] [place] [address] 61710- 7231 Mar, [facility] [id number] [place] [address] 56771- 5503 February, Chronic pain G89.29 [facility] [id number] [place] [address] 20586- 0330 February, [facility] [id number] [place] [address] 99203- 2681 Jan, Chronic pain G89.29 [facility] [id number] [place] [address] 74156- 8884 Jan, Type 2 diabetes mellitus without complication E11.9 [facility] [id number] [place] [address] 19308- 3304 Jan, [facility] [id number] [place] [address] 48162- 3272 Jan, [facility] [id number] [place] [address] 09637- 6767 Jan, [facility] [id number] [place] [address] 54823- 6023 Jan, Type 2 diabetes mellitus without complication [...] J01.00 and Encounter for Depo-Provera contraception Z30.42 [place] [id number] [place] [address] 27640- 6374 Dec, Chronic pain G89.29 [place] [address] 53607- 1447 Dec, Abnormal ankle brachial index (BERNARDINO) R68.89 [place] [id number] [place] [address] 40204- 2164 Dec, [place] [address] 63068- 9325 Dec, Routine gynecological examination Z01.419 ; Chronic [...] virus) infection B00.9 and Allergic rhinitis 477.9 [place] [id number] [place] [address] 93235- 3717 Nov, Chronic pain G89.29 [place] [id number] [place] [address] 90792- 4182 02 Nov, 2016 Chronic pain G89.29 ; [...] mucoid otitis media of both ears H65.113 [place] [id number] [place] [address] 70596- 4750 Oct, [place] [id number] [place] [address] 60646- 4969 Oct, Chronic pain G89.29 [place] [address] 07934- 5807 Oct, Chronic pain G89.29 [place] [id number] [place] [address] 90934- 3326 Sep, Chronic pain G89.29 ; Type 2 diabetes mellitus without complication E11.9 ; Essential hypertension I10 ; Radiculopathy of lumbar region M54.16 ; Spinal stenosis, lumbar region M48.06 ; Gastroesophageal reflux disease without esophagitis K21.9 ; Encounter for surveillance of injectable contraceptive Z30.42 ; Bilateral cold feet R20.9 ; Pain of left foot M79.672 and Pain in right foot M79.671 [place] [id number] [place] [address] 78330- 7937 Sep, [place] [id number] [place] [address] 90095- 1312 Aug, [place] [id number] [place] [address] 38257- 0803 Aug, [place] [address] 44829- 5483 Aug, Chronic pain G89.29 ; Type 2 diabetes mellitus without complication E11.9 ; Essential hypertension I10 ; Rash and nonspecific skin eruption R21 and Upper respiratory infection, acute J06.9 [place] [id number] [place] [address] 92649- 1548 Aug, [place] [id number] [place] [address] 27257- 4155 Aug, [place] [id number] [place] [address] 37124- 1526 Jul, [facility] [address] 60326- 4820 Jul, Dysuria R30.0 ; Encounter for Depo-Provera contraception Z30.42 ; Herpes simplex B00.9 ; Nausea & vomiting R11.2 and Asthma J45.909 [facility] [address] 81361- 2410 Jun, Dysuria R30.0 [facility] [address] 15110- 3666 Jun, Dysuria R30.0 [facility] [id number] [place] [address] 78468- 7691 15 Jun, 2016 [facility] [address] 70507- 8224 Jun, [facility] [id number] [place] [address] 55122- 0988 May, [facility] [address] 73151- 6383 May, [facility] [id number] [place] [address] 15924- 9280 May, Chronic pain G89.29 ; Essential hypertension I10 ; Type 2 diabetes mellitus without complication E11.9 ; Edema of both feet R60.0 and Rash and nonspecific skin eruption R21 [facility] [id number] [place] [address] 29512- 4571 Apr, [facility] [address] 36645- 0281 Mar, Carpal tunnel syndrome, left upper limb G56.02 and Carpal tunnel syndrome, right upper limb G56.01 [facility] [id number] [place] [address] 03174- 9811 Mar, [place] [id number] [place] [address] 56299- 4734 Mar, Encounter for Depo-Provera contraception Z30.42 [place] [id number] [place] [address] 42675- 2475 February, [place] [id number] [place] [address] 09075- 2198 February, [place] [id number] [place] [address] 31653- 7630 February, Chronic pain G89.29 ; Essential hypertension I10 ; Type 2 diabetes mellitus without complication E11.9 ; HSV (herpes simplex virus) infection B00.9 ; Anxiety F41.9 ; Hypersomnia G47.10 ; Tobacco abuse Z72.0 ; Hand pain, left M79.642 ; Hand pain, right M79.641 ; Left foot pain M79.672 and Heart palpitations R00.2 [place] [id number] [place] [address] 08391- 5188 Jan, [place] [id number] [place] [address] 79116- 9854 Jan, [place] [id number] [place] [address] 70092- 5547 Jan, [place] [id number] [place] [address] 31623- 7157 Jan, [place] [id number] [place] [address] 23686- 8384 14 Jan, 2016 Upper respiratory infection J06.9 and Type 2 diabetes mellitus without complication E11.9 [place] [id number] [place] [address] 61753- 5513 Dec, [place] [id number] [place] [address] 46937- 9004 Dec, Chronic pain G89.29 ; Essential hypertension I10 ; Type 2 diabetes mellitus without complication E11.9 ; HSV (herpes simplex virus) infection B00.9 ; Anxiety F41.9 ; Upper respiratory infection J06.9 ; Hypersomnia G47.10 and Tobacco abuse Z72.0 [place] [address] 30663- 8735 17 Dec, 2015 Encounter for Depo-Provera contraception Z30.42 [place] [address] 17699- 1411 Dec, [place] [address] 77549- 7323 Dec, Chronic pain G89.29 ; Sinusitis J32.9 ; Snoring R06.83 and Daytime hypersomnia G47.19 [place] [address] 18659- 6923 Nov, HSV (herpes simplex virus) infection B00.9 ; Encounter for Papanicolaou smear for cervical cancer screening Z12.4 ; Screening for STD ( sexually transmitted disease) Z11.3 and Bartholin's gland cyst N75.0 [place] [id number] [place] [address] 18404- 5660 Nov, [place] [address] 51520- 5371 Nov, [place] [id number] [place] [address] 24314- 7226 Nov, Essential hypertension I10 ; Type 2 diabetes mellitus without complication E11.9 ; HSV (herpes simplex virus) infection B00.9 ; Spinal stenosis, lumbar region M48.06 and Vaginal yeast infection B37.3 [place] [id number] [place] [address] 16618- 6632 Nov, [place] [address] 61992- 8748 Nov, [place] [id number] [place] [address] 39273- 8536 Oct, [place] [id number] [place] [address] 20728- 8691 26 Oct, 2015 HSV (herpes simplex virus) infection B00.9 ; Yeast infection B37.9 ; Change in bowel habit R19.4 ; Nausea & vomiting R11.2 and Gastroesophageal reflux disease without esophagitis K21.9 [place] [address] 14918- 1776 Oct, [address] 92834- 9052 Oct, Type 2 diabetes mellitus without complication E11.9 ; Essential hypertension I10 and Acute maxillary sinusitis, recurrence not specified J01.[address] 72635- 9792 Oct, [address] 18022- 9395 Oct, [address] 60335- 3690 Oct, Exposure to head lice Z20.7 ; Blood glucose abnormal R73.09 ; Boil of buttock L02.32 and Type 2 diabetes mellitus without complication E11.9 [place] [address] 82000- 3351 Oct, [address] 56355- 1128 Sep, [place] [address] 06714- 7082 Sep, [address] 05658- 7551 Aug, Encounter for Depo-Provera contraception Z30.[address] 50191- 2887 Aug, Anxiety F41.9 ; Spinal stenosis, lumbar region M48.06 ; Radiculopathy of lumbar region M54.16 ; Asthma J45.909 ; GERD (gastroesophageal reflux disease) K21.9 ; Essential hypertension I10 and Long-term use of high- risk medication Z79.899 [place] [address] 17092- 3391 Jul, [place] [address] 28367- 8441 Jun, Hemorrhoid 455.[address] 55225- 6364 Jun, [place] [address] 25202- 5056 Jun, Anxiety 300.00 ; Asthma 493.90 ; Hyperhidrosis 705.21 ; Chest discomfort 786.59 and Upper respiratory infection 465.[address] 37402- 1209 May, Encounter for Depo-Provera contraception V25.[address] 73703- 3759 May, [address] 06597- 3216 May, [address] 41290- 0211 May, Spinal stenosis of lumbar region with radiculopathy 724.02 ; Bulging of intervertebral disc between L4 and L5 722.10 ; GERD ( gastroesophageal reflux disease) 530.81 ; Chronic pain 338.29 ; Declining mobility 799.89 and Epigastric pain 789.06 [place] [id number] [place] [address] 00138- 3377 Apr, [address] 81247- 1492 Apr, Nausea 787.02 and Heart burn 787.[address] 16447- 6485 Mar, Lumbago 724.2 ; Vitamin D deficiency 268.9 ; Anxiety 300.00 ; Allergic rhinitis 477.9 and Contraceptive surveillance V25.40 [facility] [id number] [place] [address] 80555- 2234 February, 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 ; Chronic pain 338.29 and Vaginal discharge 623.5 [facility] [id number] [place] [address] 62209- 9226 February, [facility] [id number] [place] [address] 45643- 2326 February, [facility] [id number] [place] [address] [id number]- 4300 Jan, [facility] [id number] [place] [address] 719290- 7919 Jan, [facility] [id number] [place] [address] 25435716- 2690 Dec, [facility] [address] [place] [address] 43033- 0694 Dec, [facility] [id number] [place] [address] [id number]- 0025 Dec, [facility] [address] [address] 0585 Dec, [facility] [address]- 5092 Dec, [facility] [address]- 7134 Dec, [facility] [id number] [place] [address] 829744- 0785 Dec, [facility] [address], [place] [address]- 1878 Dec, [facility] [id number] [place] [address] 88141- 0216 Dec, [facility] [place] [facility] [address] [id number] [place] [address]- 5190 Dec, [facility] [place] [facility] [address] [id number] [place] [address]- 4844 Dec, [facility] [place] [facility] [address] [facility] [id number] [place] [address]- 2084 Dec, [facility] [place] [facility] [address] [facility] [id number] [place] [address]- 4206 Nov, 2014 [facility] [place] [facility] [address] [id number] [place] [address]- 7177 Nov, 2014 [facility] [place] [facility] [address] [facility] [id number] [place] [address]- 3160 24 Nov, 2014 [facility] [place] [facility] [address] [facility] [id number] [place] [address]- 9253 24 Nov, 2014 [facility] [place] [facility] [address] [facility] [id number] [place] [address]- 7284 23 Nov, 2014 [facility] [place] [facility] [address] [facility] [id number] [place] [address]- 3297 23 Nov, 2014 [facility] [place] [facility] [address] [facility] [id number] [place] [address]- 1412 16 Nov, 2014 [facility] [place] [facility] [address] [facility] [id number] [place] [address]- 9581 16 Nov, 2014 [facility] [place] [facility] [address] [facility] [id number], [place] [address]- 1379 13 Nov, 2014 [facility] [place] [facility] [address] [facility] [id number] [place] [address]- 8468 13 Nov, 2014 [facility] [place] [facility] [address] [facility] [id number] [address]- 4631 13 Nov, 2014 [facility] [place] [facility] [address] [facility] [id number], [place] [address]- 7192 13 Nov, 2014 [facility] [place] [facility] [address] [id number] [place] [address]- 0586 Nov, 2014 [facility] [place] [facility] [address] [id number] [place] [address]- 4186 Nov, 2014 [facility] [place] [facility] [address] [id number] [place] [address]- 6116 Nov, 2014 [facility] [place] [facility] [address] [id number] [place] [address] 2547 Nov, 2014 [facility] [place] [facility] [address] [id number] [place] [address]- 2346 Nov, 2014 [facility] [place] [facility] [address] [id number] [place] [address]- 3990 Nov, 2014 [facility] [place] [facility] [address] [id number] [place] [address]- 4273 Nov, 2014 [facility] [place] [facility] [address] [id number] [place] [address]- 2856 Nov, 2014 [facility] [place] [facility] [address] [id number] [place] [address]- 9913 Nov, 2014 [facility] [place] [facility] [address] [id number] [place] [address]- 6371 Nov, [facility] [place] [facility] [address] [id number] [place] [address]- 5278 Nov, [facility] [place] [facility] [address] [id number] [place] [address]- 8571 Oct, [facility] [place] [facility] [address] [id number] [place] [address]- 3572 Oct, [facility] [place] [facility] [address] [id number] [place] [address]- 5979 Oct, [facility] [place] [facility] [address] [id number] [place] [address]- 8820 Oct, [facility] [place] [facility] [address] [id number] [place] [address]- 5164 Oct, [facility] [address] [id number] [place] [address]- 9458 Oct, [facility] [place] [facility] [address] [id number] [place] [address]- 9663 Oct, [facility] [address] [id number] [place] [address] Oct, [facility] [place] [facility] [address] [id number] [place] [address] Oct, [facility] [address] [id number] [place] [address] Oct, [facility] [place] [facility] [address] [id number] [place] [address] Oct, [facility] [address] [id number] [place] [address] Oct, [facility] [address] [id number] [place] [address] Oct, [facility] [place] [facility] [address] [id number] [place] [address] Oct, [facility] [address] [id number] [place] [address] Oct, [facility] [place] [facility] [address] [id number] [place] [address] Oct, [facility] [place] [facility] [address] [id number] [place] [address]- [address] Oct, [facility] [place] [facility] [address] [id number] [place] [address] Oct, [facility] [place] [facility] [address] [id number] [place] [address] Oct, [facility] [place] [facility] [address] [id number] [place] [address] Oct, [facility] [place] [facility] [address] [id number] [place] [address] Oct, [facility] [place] [facility] [address] [id number] [place] [address] Sep, [facility] [place] [facility] [address] [id number] [place] [address] 29 Sep, 2014 [facility] [place] [facility] [address] [id number] [place] [address] 7228 18 Sep, 2014 [facility] [place] [facility] [address] [id number] [place] [address]- 6337 18 Sep, 2014 [facility] [place] [facility] [address] [id number] [place] [address] 0461 Sep, [facility] [place] [facility] [address] [id number] [place] [address] 5212 17 Sep, 2014 [facility] [place] [facility] [address] [id number] [place] [address]- 3491 15 Sep, 2014 [facility] [place] [facility] [address] [id number] [place] [address]- 0381 15 Sep, 2014 [facility] [place] [facility] [address] [id number] [place] [address] 5786 Sep, [facility] [place] [facility] [address] [id number] [place] [address]- 5970 12 Sep, 2014 [facility] [place] [facility] [address] [id number] [place] [address]- 9730 11 Sep, 2014 [facility] [place] [facility] [address] [id number] [place] [address]- 9640 Sep, [facility] [place] [facility] [address] [id number] [place] [address]- 5065 Sep, [facility] [place] [facility] [address] [id number] [place] [address]- 7170 11 Sep, 2014 [facility] [place] [facility] [address] [id number], [place] [address]- 1585 Sep, [facility] [place] [facility] [address] [id number] [place] [address]- 1557 Sep, [facility] [place] [facility] [address] [id number] [place] [address]- 7015 Sep, [facility] [place] [facility] [address] [facility] [id number] [place] [address]- 3385 Sep, [facility] [place] [facility] [address] [id number] [place] [address]- 5787 Sep, [facility] [place] [facility] [address] [id number] [place] [address]- 7653 Sep, [facility] [place] [facility] [address] [id number] [place] [address]- 0791 Aug, [facility] [place] [facility] [address] [id number] [place] [address]- 5752 Aug, [facility] [place] [facility] [address] [id number] [place] [address]- 3554 Aug, [facility] [place] [facility] [address] [id number] [place] [address]- 3136 Aug, [facility] [place] [facility] [address] [facility] [id number] [place] [address]- 0255 Aug, [facility] [place] [facility] [address] [id number] [place] [address]- 9072 Aug, [facility] [place] [facility] [address] [id number], [place] [address]- 8413 Aug, [facility] [place] [facility] [address] [id number] [place] [address]- 3639 Aug, [facility] [place] [facility] [address] [facility] [id number] [place] [address]- 6163 Aug, [facility] [place] [facility] [address] [facility] [id number] [place] [address]- 2204 Jul, [facility] [place] [facility] [address] [id number] [place] [address]- 6156 29 Jul, 2013 [facility] [place] [facility] [address] [id number] [place] [address]- 0675 Jul, 2013 [facility] [place] [facility] [address] [id number] [place] [address]- 5334 Jul, 2013 [facility] [place] [facility] [address] [id number] [place] 16 Jul, 2013 [facility] [place] [facility] [address] [id number] [place] [address]- 3849 16 Jul, 2013 [facility] [place] [facility] [address] [id number] [place] [address]- 6124 Jul, 2013 [facility] [place] [facility] [address] [id number] [place] [address]- 2753 Jul, 2013 [facility] [place] [facility] [address] [id number] [place] [address]- 9251 10 Jul, 2013 [facility] [place] [facility] [address] [id number] [place] [address]- 9401 10 Jul, 2013 [facility] [place] [facility] [address] [id number] [place] [address]- 6952 10 Jul, 2013 [facility] [place] [facility] [address] [id number] [place] [address]- 9066 10 Jul, 2013 [facility] [place] [facility] [address] [id number] [place] [address]- 0023 07 Jul, 2013 [facility] [place] [facility] [address] [id number] [place] [address]- 3359 07 Jul, 2013 [facility] [place] [facility] [address] [id number] [place] [address]- 0400 30 Jun, 2013 [facility] [place] [facility] [address] [id number] [place] [address] 30 Sep, 2013 [facility] [place] [facility] [address] [id number] [place] [address]- 0404 25 Sep, 2013 [facility] [place] [facility] [address] [id number] [place] [address]- 4622 25 Sep, 2013 [facility] [place] [facility] [address] [id number] [place] [address]- 6206 25 Sep, 2013 [facility] [place] [facility] [address] [id number] [place] [address]- 4701 25 Sep, 2013 [facility] [place] [facility] [address] [id number] [place] [address]- 5972 24 Sep, 2013 [facility] [place] [facility] [address] [id number] [place] [address]- 0450 24 Sep, 2013 [facility] [place] [facility] [address] [id number] [place] [address]- 6048 22 Jun, 2013 [facility] [place] [facility] [address] [id number] [place] [address]- 5395 22 Jun, 2013 [facility] [place] [facility] [address] [id number] [place] [address]- 6254 17 Sep, 2013 [facility] [place] [facility] [address] [id number] [place] [address]- 7571 17 Sep, 2013 [facility] [place] [facility] [address] [id number] [place] [address]- 5723 16 Sep, 2013 [facility] [place] [facility] [address] [id number], [place] [address]- 6707 16 Sep, 2013 [facility] [place] [facility] [address] [id number], [place] [address]- 2547 15 Sep, 2013 [facility] [place] [facility] [address] [id number] [place] [address]- 2541 15 Sep, 2013 [facility] [place] [facility] [address] [id number] [place] [address]- 9194 12 Sep, 2013 [facility] [place] [facility] [address] [id number] [place] [address]- 0673 12 Sep, 2013 [facility] [place] [facility] [address] [id number] [place] [address]- 9531 11 Jun, 2013 [facility] [place] [facility] [address] [id number] [place] [address]- 5056 11 Jun, 2013 [facility] [place] [facility] [address] [id number] [place] [address] 2546 Jun, 2013 [facility] [place] [facility] [address] [id number] [place] [address]- 6883 Jun, 2013 [facility] [place] [facility] [address] [id number] [place] [address] 2544 Jun, 2013 [facility] [place] [facility] [address] [id number] [place] [address]- 6538 Jun, 2013 [facility] [place] [facility] [address] [id number] [place] [address]- 4874 Jun, 2013 [facility] [place] [facility] [address] [id number] [place] [address]- 5353 Jun, 2013 [facility] [place] [facility] [address] [id number] [place] [address]- 9945 May, [facility] [place] [facility] [address] [id number] [place] [address]- 5151 May, [facility] [place] [facility] [address] [id number] [place] [address]- 2508 May, [facility] [place] [facility] [address] [id number] [place] [address]- 2539 May, [facility] [place] [facility] [address] [id number] [place] [address]- 254 May, [facility] [place] [facility] [address] [id number] [place] [address]- 2751 May, [facility] [place] [facility] [address] [id number] [place] [address]- 7533 May, [facility] [place] [facility] [address] [id number] [place] [address]- 7424 May, [facility] [place] [facility] [address] [id number] [place] [address]- 0529 May, [facility] [place] [facility] [address] [id number] [place] [address]- 4417 May, [facility] [place] [facility] [address] [id number] [place] [address]- 2629 May, [facility] [place] [facility] [address] [id number] [place] [address]- 7537 May, [facility] [place] [facility] [address] [id number] [place] [address]- 1919 May, [facility] [place] [facility] [address] [id number] [place] [address]- 5404 Apr, [facility] [place] [facility] [address] [id number] [place] [address]- 9753 Apr, [facility] [place] [facility] [address] [id number] [place] [address]- 5028 Apr, [facility] [place] [facility] [address] [id number] [place] [address]- 1112 Apr, [facility] [place] [facility] [address] [id number] [place] [address]- 2035 Apr, [facility] [place] [facility] [address] [id number] [place] [address]- 8440 Mar, [facility] [place] [facility] [address] [id number] [place] [address]- 0385 Mar, [facility] [place] [facility] [address] [id number] [place] [address]- 4228 Mar, [facility] [place] [facility] [address] [id number] [place] [address]- 6866 February, [facility] [place] [facility] [address] [id number] [place] [address]- 9063 February, [facility] [place] [facility] [address] [id number] [place] [address]- 6314 February, [facility] [place] [facility] [address] [id number] [place] [address]- 0329 February, [facility] [place] [facility] [address] [id number] [place] [address]- 0630 February, [facility] [place] [facility] [address] [id number] [place] [address]- 7650 February, [facility] [place] [facility] [address] [id number] [place] [address]- 7379 February, [facility] [place] [facility] [address] [id number] [place] [address]- 7900 February, [facility] [place] [facility] [address] [id number] [place] [address]- 2000 February, [facility] [place] [facility] [address] [id number] [place] [address]- 7050 Jan, [facility] [place] [facility] [address] [id number] [place] [address]- 1331 Jan, [facility] [place] [facility] [address] [id number] [place] [address]- 3114 Jan, [facility] [place] [facility] [address] [id number] [place] [address]- 1982 Jan, [facility] [place] [facility] [address] [id number] [place] [address]- 1216 Jan, [facility] [place] [facility] [address] [id number] [place] [address]- 7843 Dec, [facility] [place] [facility] [address] [id number] [place] [address]- 2977 Dec, [facility] [place] [facility] [address] [id number] [place] [address]- 6791 Dec, [facility] [place] [facility] [address] [id number] [place] [address]- 3184 Dec, [facility] [place] [facility] [address] [id number] [place] [address]- 9001 Dec, [facility] [place] [facility] [address] [id number] [place] [address]- 6096 Nov, [facility] [place] [facility] [address] [id number] [place] [address]- 1366 Nov, [facility] [place] [facility] [address] [id number] [place] [address]- 5386 Nov, [facility] [place] [facility] [address] [id number] [place] [address]- 0995 Nov, [facility] [place] [facility] [address] [id number] [place] [address]- 4851 Oct, [facility] [place] [facility] [address] [id number] [place] [address]- 3239 Oct, [facility] [place] [facility] [address] [id number] [place] [address]- 3435 Oct, [facility] [place] [facility] [address] [id number] [place] [address]- 1965 Oct, [facility] [place] [facility] [address] [id number] [place] [address]- 0302 Oct, [facility] [place] [facility] [address] [id number] [place] [address]- 9755 Oct, [facility] [place] [facility] [address] [id number] [place] [address]- 8683 Oct, [facility] [place] [facility] [address] [id number] [place] [address]- 7991 Oct, [facility] [place] [facility] [address] [id number] [place] [address]- 6441 Oct, [facility] [place] [facility] [address] [id number] [place] [address]- 6709 Oct, [facility] [place] [facility] [address] [id number] [place] [address]- 4828 Aug, [facility] [place] [facility] [address] [id number] [place] [address]- 8917 Aug, [facility] [place] [facility] [address] [id number] [place] [address]- 3511 Jul, [facility] [place] [facility] [address] [facility] [id number] [place] [address]- 4109 Jul, [facility] [place] [facility] [address] [id number] [place] [address]- 4259 Jul, [facility] [place] [facility] [address] [id number] [place] [address]- 4175 Jul, [facility] [place] [facility] [address] [id number] [place] [address]- 8760 Jul, [facility] [place] [facility] [address] [facility] [id number] [place] [address]- 0578 Jul, [facility] [place] [facility] [address] [id number], [place] [address]- 9911 Apr, [facility] [place] [facility] [address] [id number] [place] [address]- 0289 Dec, [facility] [place] [facility] [address] [facility] [id number], [place] [address]- 5433 Nov, [facility] [place] [facility] [address] [id number], [place] [address]- 9431 Nov, [facility] [place] [facility] [address] [id number], [place] [address]- 2548 Nov, [facility] [place] [facility] [address] [id number], [place] [address]- 2546 Oct, [facility] [place] [facility] [address] [facility] [id number], [place] [address] 2546 Sep, [facility] [place] [facility] [address] [facility] [id number], [place] [address]- 2546 Sep, [facility] [place] [facility] [address] [id number] [place] [address]- 2962 Sep, [facility] [address] [id number] [place] [address]- 9628 Sep, [facility] [place] [facility] [address] [id number] [place] [address]- 6906 Aug, [facility] [address] [id number] [place] [address]- 9949 Aug, [facility] [place] [facility] [address] [id number] [place] [address]- 7384 Jul, [facility] [address] [id number] [place] [address], [place] 4979 Jul, [facility] [place] [facility] [address] [id number] [place] [address]- 1985 28 Jun, 2012 [facility] [place] [facility] [address] [id number] [place] [address]- 1575 26 Jun, 2012 [facility] [place] [facility] [address] [id number] [place] [address]- 7599 24 Jun, 2012 [facility] [place] [facility] [address] [id number] [place] [address]- 5637 24 Jun, 2012 [facility] [place] [facility] [address] [facility] [id number] [place] [address]- 0900 12 Jun, 2012 [facility] [place] [facility] [address] [id number] [place] [address] 2541 31 Apr, 2012 [facility] [place] [facility] [address] [id number] [place] [address]- 4490 30 Apr, 2012 [facility] [place] [facility] [address] [id number] [place] [address]- 2491 24 Apr, 2012 [facility] [place] [facility] [address] [id number] [place] [address]- 6221 Mar, [facility] [place] [facility] [address] [facility] [id number] [place] [address]- 5194 05 Mar, 2012 [facility] [address] [id number] [place] [address]- 9287 Mar, [facility] [place] [facility] [address] [id number] [place] [address]- 2146 February, [facility] [place] [facility] [address] [id number] [place] [address]- 8016 Jan, [facility] [place] [facility] [address] [id number] [place] [address]- 8926 Dec, [facility] [place] [facility] [address] [id number] [place] [address]- 6593 Dec, [facility] [place] [facility] [address] [id number] [place] [address]- 8886 Dec, [facility] [place] [facility] [address] [id number] [place] [address]- 5756 Dec, [facility] [place] [facility] [address] [id number] [place] [address]- 7856 Dec, [facility] [place] [facility] [address] [id number] [place] [address]- 9012 Nov, [facility] [place] [facility] [address] [id number] [place] [address]- 4046 Nov, [facility] [place] [facility] [address] [id number] [place] [address]- 2486 Oct, [facility] [place] [facility] [address] [id number] [place] [address]- 0036 Oct, [facility] [place] [facility] [address] [id number] [place] [address]- 8026 Oct, [facility] [place] [facility] [address] [id number] [place] [address]- 4246 Sep, [facility] [place] [facility] [address] [id number] [place] [address]- 1486 Aug, [facility] [place] [facility] [address] [id number] [place] [address]- 3850 10 Aug, 2011 [facility] [place] [facility] [address] [id number] [place] [address]- 5838 28 Jul, 2011 [facility] [place] [facility] [address] [id number] [place] [address]- 7312 24 Jul, 2011 [facility] [place] [facility] [address] [id number] [place] [address]- 9056 19 Jul, 2011 [facility] [place] [facility] [address] [id number] [place] [address]- 7332 13 Jan, 2011 [facility] [place] [facility] [address] [id number] [place] [address], [place] [address]- 0721 29 Sep, 2010 [facility] [place] [facility] [address] [id number] [place] [address]- 0163 27 Sep, 2010 [facility] [place] [facility] [address] [id number] [place] [address]- 0628 Sep, [facility] [place] [facility] [address] [id number] [place] [address]- 5972 20 Sep, 2010 [facility] [place] [facility] [address] [id number] [place] [address]- 4551 06 Sep, 2010 [facility] [place] [facility] [address] [id number] [place] [address]- 9519 16 Aug, 2010 [facility] [place] [facility] [address] [id number] [place] [address]- 8434 16 Aug, 2010 [facility] [place] [facility] [address] [id number] [place] [address]- 4755 08 Aug, 2010 [facility] [place] [facility] [address] [id number] [place] [address]- 5981 19 Jul, 2010 [facility] [place] [facility] [address] [id number] [place] [address]- 0857 19 Jul, 2010 [facility] [place] [facility] [address] [id number], [place] [address]- 2717 12 Jul, 2010 [facility] [place] [facility] [id number], [place] [address]- 3930 May, [facility] [id number] [address] Apr, [facility] [id number], [place] [address]- 3579 Dec, [facility] [id number] 7343 Sep, [facility] [id number], [place] [address]- 5924 Sep, [facility] [id number] [place] [address]- 9207 Aug, [facility] [id number], [place] [address]- 3234 Aug, [facility] [id number], [place] [address] Jul, [facility] [id number], [place] [address] Mar, IMMUNIZATIONS No Known Immunizations SOCIAL HISTORY Never Assessed REASON FOR VISIT PA jere Goss (denied) PLAN OF CARE VITAL SIGNS MEDICATIONS Medication Instructions Dosage Frequency Start Date End Date Duration Status Fenofibrate 145 MG Orally Once a day 1 tablet 24h Mar, 30 day(s ) Active RESULTS No Results PROCEDURES No Known [...]
--- OUTSIDE RECORDS SUMMARY | 2018-10-08 20:21 | XMS REPORT ---
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 Active 907073843 Problem Edema of both feet R60.0 Active 908506499 Problem Tobacco abuse Z72.0 Active 50841256 Problem Chronic migraine G43.709 Active 94665907 Problem Mixed hyperlipidemia E78.2 Active 858575582 Problem Spinal stenosis, lumbar region M48.06 Active 23535466 Problem Anxiety F41.9 Active 67708249 Problem Radiculopathy of lumbar region M54.16 Active 220119670 Problem Bulging lumbar disc M51.26 Active 835799122 Problem Asthma J45.909 Active 039538061 Problem Essential hypertension I10 Active 17206867 ALLERGIES No Information ENCOUNTERS Encounter Location Date Diagnosis [facility] [id number], [place] [address] 14 Dec, 2017 [facility] [id number] [place] [address] 78602- 3322 Dec, Gastroesophageal reflux disease without esophagitis K21.9 and Anxiety F41.9 [facility] [id number], [place] [address]67 Dec, Essential hypertension I10 ; Mixed hyperlipidemia E78.2 ; Type 2 diabetes mellitus with diabetic neuropathy, unspecified E11.40 ; 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 ; Chronic pain G89.29 ; HSV (herpes simplex virus) infection B00.9 ; Anxiety F41.9 and Gastroesophageal reflux disease without esophagitis K21.9 [id number] [place] [address] 20240- 0267 Dec, Chronic pain G89.29 and Chronic migraine G43.[address] 09110- 8518 Nov, [address] 36058- 6897 Nov, Essential hypertension I10 and Chronic pain G89.[address] 77817- 3059 Nov, Chronic pain G89.29 ; Essential hypertension I10 and Type 2 diabetes mellitus without complication E11.[address] 43646- 6010 Oct, Chronic pain G89.[address] 84782- 4456 Oct, [id number] [place] [address] 12126- 3938 Sep, Type 2 diabetes mellitus without complication E11.9 ; Essential hypertension I10 ; rat exterminator (current) use of insulin Z79.4 ; Chronic migraine G43.709 ; Chronic pain G89.29 and Acute non-recurrent maxillary sinusitis J01.00 [id number] [place] [address] 86889- 2153 Sep, Encounter for Depo-Provera contraception Z30.[address] 46472- 5401 Sep, Chronic pain G89.29 and Radiculopathy of lumbar region M54.[address] 11243- 8810 Sep, [facility] [address], [place] [address] 4648 Sep, [facility] [id number] [place] [address] 80358- 3379 Aug, Type 2 diabetes mellitus without complication E11.9 [facility] [address], [place] [address] 8402 Aug, [facility] [id number] [place] [address] 08202- 5901 Aug, Radiculopathy of lumbar region M54.16 and Chronic pain G89.29 [facility] [id number] [place] [address] 45773- 4403 Aug, Type 2 diabetes mellitus without complication E11.9 [facility] [id number] [place] [address] 84735- 2614 Aug, Type 2 diabetes mellitus without complication E11.9 [facility] [address] [place] [address] 51308- 8333 Jul, Type 2 diabetes mellitus without complication E11.9 [facility] [address] [place] [address] 21473- 2072 Jul, [facility] [address], [place] [address]- 3583 Jul, Chronic pain G89.29 [facility] [address], [place] [address] 3551 Jul, [facility] [address], [place] [address]- 7086 Jul, [facility] [address], [place] [address]- 1649 Jul, Type 2 diabetes mellitus without complication E11.9 [facility] [address], [place] [address]- 6085 Jul, [facility] [id number] [place] [address] 52977- 8656 12 Jul, 2017 Type 2 diabetes mellitus without complication E11.9 [facility] [address] 60651- 6429 11 Jul, 2017 [facility] [address] 90048- 9385 Jul, [place] [address] 88434- 6153 Jul, [facility] [address] 56315- 2495 27 Jun, 2017 Type 2 diabetes mellitus without complication E11.9 [place] [address] 13282- 3268 26 Jun, 2017 Chronic migraine G43.709 ; Type 2 diabetes mellitus without complication E11.9 ; Calculus of right kidney N20.0 ; Yeast dermatitis B37.2 and HSV (herpes simplex virus) infection B00.9 [place] [id number] [place] [address] 43268- 1964 Jun, Type 2 diabetes mellitus without complication E11.9 [place] [id number] [place] [address] 20841- 4962 Jun, [place] [id number] [place] [address] 82834- 7126 Jun, Radiculopathy of lumbar region M54.16 and Chronic pain G89.29 [place] [id number] [place] [address] 06934- 7614 Jun, Encounter for Depo-Provera contraception Z30.42 [place] [address] 49552- 7261 Jun, Type 2 diabetes mellitus without complication E11.9 [facility] [id number] [place] [address] 43606- 6526 10 Jun, 2017 [facility] [address] [place] [address] May, Acute nasopharyngitis (common cold) J00 [place] [address] 16287- 5455 May, Chronic pain G89.29 [place] [address] 79572- 7136 May, Headache following lumbar puncture G97.1 [place] [address] 71030- 6992 May, Radiculopathy of lumbar region M54.16 [place] [address] 17312- 5356 Apr, [place] [address] 93366- 9196 Apr, Type 2 diabetes mellitus without complication E11.9 ; Chronic pain G89.29 ; Essential hypertension I10 ; Radiculopathy of lumbar region M54.16 ; Spinal stenosis, lumbar region M48.06 ; Gastroesophageal reflux disease without esophagitis K21.9 ; HSV (herpes simplex virus) infection B00.9 ; Mixed hyperlipidemia E78.2 ; Anxiety F41.9 and Asthma J45.909 [id number] [place] [address] 43507- 0822 Apr, Encounter for Depo-Provera contraception Z30.42 [place] [id number] [place] [address] 37680- 0859 Apr, Chronic pain G89.29 and Anxiety F41.9 [place] [id number] [place] [address] 74965- 6398 Mar, [place] [address] 23822- 2044 Mar, [place] [address] 77076- 8332 Mar, Mixed hyperlipidemia E78.2 [place] [id number], [place] [address] 0724 Mar, Type 2 diabetes mellitus without complication E11.9 ; Chronic pain G89.29 ; Essential hypertension I10 ; Radiculopathy of lumbar region M54.16 ; Spinal stenosis, lumbar region M48.06 ; Gastroesophageal reflux disease without esophagitis K21.9 ; HSV (herpes simplex virus) infection B00.9 ; Mixed hyperlipidemia E78.2 and Anxiety F41.9 [facility] [id number] [place] [address] 08338- 2061 Mar, [facility] [id number] [place] [address] 71252- 4727 Mar, [facility] [id number] [place] [address] 09914- 5635 Mar, [facility] [id number] [place] [address] 47926- 3073 February, Chronic pain G89.29 [facility] [id number] [place] [address] 67684- 6012 February, [facility] [id number] [place] [address] 64998- 8341 Jan, Chronic pain G89.29 [facility] [id number] [place] [address] 71064- 4026 Jan, Type 2 diabetes mellitus without complication E11.9 [facility] [id number] [place] [address] 57800- 8778 Jan, [facility] [id number] [place] [address] 03749- 6283 Jan, [facility] [id number] [place] [address] 79066- 6280 Jan, [facility] [id number] [place] [address] 17724- 2357 Jan, Type 2 diabetes mellitus without complication [...] J01.00 and Encounter for Depo-Provera contraception Z30.42 [place] [id number] [place] [address] 04047- 7155 Dec, Chronic pain G89.29 [place] [address] 69682- 5541 Dec, Abnormal ankle brachial index (BERNARDINO) R68.89 [place] [id number] [place] [address] 43311- 1800 Dec, [place] [address] 42955- 4236 Dec, Routine gynecological examination Z01.419 ; Chronic [...] virus) infection B00.9 and Allergic rhinitis 477.9 [place] [id number] [place] [address] 46568- 1729 Nov, Chronic pain G89.29 [place] [id number] [place] [address] 95959- 8213 02 Nov, 2016 Chronic pain G89.29 ; [...] mucoid otitis media of both ears H65.113 [place] [id number] [place] [address] 51265- 8152 Oct, [place] [id number] [place] [address] 84363- 4976 Oct, Chronic pain G89.29 [place] [address] 34942- 9799 Oct, Chronic pain G89.29 [place] [id number] [place] [address] 75401- 1995 Sep, Chronic pain G89.29 ; Type 2 diabetes mellitus without complication E11.9 ; Essential hypertension I10 ; Radiculopathy of lumbar region M54.16 ; Spinal stenosis, lumbar region M48.06 ; Gastroesophageal reflux disease without esophagitis K21.9 ; Encounter for surveillance of injectable contraceptive Z30.42 ; Bilateral cold feet R20.9 ; Pain of left foot M79.672 and Pain in right foot M79.671 [place] [id number] [place] [address] 61903- 4066 Sep, [place] [id number] [place] [address] 99142- 0251 Aug, [place] [id number] [place] [address] 66357- 1248 Aug, [place] [address] 89067- 0354 Aug, Chronic pain G89.29 ; Type 2 diabetes mellitus without complication E11.9 ; Essential hypertension I10 ; Rash and nonspecific skin eruption R21 and Upper respiratory infection, acute J06.9 [place] [id number] [place] [address] 42917- 7970 Aug, [place] [id number] [place] [address] 42984- 0857 Aug, [place] [id number] [place] [address] 01344- 3835 Jul, [facility] [address] 43495- 7872 Jul, Dysuria R30.0 ; Encounter for Depo-Provera contraception Z30.42 ; Herpes simplex B00.9 ; Nausea & vomiting R11.2 and Asthma J45.909 [facility] [address] 22759- 8574 Jun, Dysuria R30.0 [facility] [address] 59388- 1970 Jun, Dysuria R30.0 [facility] [id number] [place] [address] 06782- 6817 15 Jun, 2016 [facility] [address] 47250- 7850 Jun, [facility] [id number] [place] [address] 34631- 5143 May, [facility] [address] 16152- 8768 May, [facility] [id number] [place] [address] 16555- 9164 May, Chronic pain G89.29 ; Essential hypertension I10 ; Type 2 diabetes mellitus without complication E11.9 ; Edema of both feet R60.0 and Rash and nonspecific skin eruption R21 [facility] [id number] [place] [address] 96506- 6914 Apr, [facility] [address] 63839- 0323 Mar, Carpal tunnel syndrome, left upper limb G56.02 and Carpal tunnel syndrome, right upper limb G56.01 [facility] [id number] [place] [address] 61194- 8086 Mar, [place] [id number] [place] [address] 69543- 6944 Mar, Encounter for Depo-Provera contraception Z30.42 [place] [id number] [place] [address] 92166- 2359 February, [place] [id number] [place] [address] 65010- 7531 February, [place] [id number] [place] [address] 91507- 7583 February, Chronic pain G89.29 ; Essential hypertension I10 ; Type 2 diabetes mellitus without complication E11.9 ; HSV (herpes simplex virus) infection B00.9 ; Anxiety F41.9 ; Hypersomnia G47.10 ; Tobacco abuse Z72.0 ; Hand pain, left M79.642 ; Hand pain, right M79.641 ; Left foot pain M79.672 and Heart palpitations R00.2 [place] [id number] [place] [address] 14757- 0484 Jan, [place] [id number] [place] [address] 14131- 0506 Jan, [place] [id number] [place] [address] 85448- 5884 Jan, [place] [id number] [place] [address] 68601- 9409 Jan, [place] [id number] [place] [address] 13126- 0602 14 Jan, 2016 Upper respiratory infection J06.9 and Type 2 diabetes mellitus without complication E11.9 [place] [id number] [place] [address] 77555- 1900 Dec, [place] [id number] [place] [address] 38514- 5435 Dec, Chronic pain G89.29 ; Essential hypertension I10 ; Type 2 diabetes mellitus without complication E11.9 ; HSV (herpes simplex virus) infection B00.9 ; Anxiety F41.9 ; Upper respiratory infection J06.9 ; Hypersomnia G47.10 and Tobacco abuse Z72.0 [place] [address] 83470- 5430 17 Dec, 2015 Encounter for Depo-Provera contraception Z30.42 [place] [address] 49954- 1463 Dec, [place] [address] 09617- 8718 Dec, Chronic pain G89.29 ; Sinusitis J32.9 ; Snoring R06.83 and Daytime hypersomnia G47.19 [place] [address] 63211- 7936 Nov, HSV (herpes simplex virus) infection B00.9 ; Encounter for Papanicolaou smear for cervical cancer screening Z12.4 ; Screening for STD ( sexually transmitted disease) Z11.3 and Bartholin's gland cyst N75.0 [place] [id number] [place] [address] 36828- 9318 Nov, [place] [address] 60259- 6402 Nov, [place] [id number] [place] [address] 18262- 8590 Nov, Essential hypertension I10 ; Type 2 diabetes mellitus without complication E11.9 ; HSV (herpes simplex virus) infection B00.9 ; Spinal stenosis, lumbar region M48.06 and Vaginal yeast infection B37.3 [place] [id number] [place] [address] 25028- 5632 Nov, [place] [address] 97275- 9364 Nov, [place] [id number] [place] [address] 85936- 5730 Oct, [place] [id number] [place] [address] 87598- 6185 26 Oct, 2015 HSV (herpes simplex virus) infection B00.9 ; Yeast infection B37.9 ; Change in bowel habit R19.4 ; Nausea & vomiting R11.2 and Gastroesophageal reflux disease without esophagitis K21.9 [place] [address] 69493- 8767 Oct, [address] 47275- 1936 Oct, Type 2 diabetes mellitus without complication E11.9 ; Essential hypertension I10 and Acute maxillary sinusitis, recurrence not specified J01.[address] 00390- 9155 Oct, [address] 81965- 2672 Oct, [address] 71448- 8966 Oct, Exposure to head lice Z20.7 ; Blood glucose abnormal R73.09 ; Boil of buttock L02.32 and Type 2 diabetes mellitus without complication E11.9 [place] [address] 35453- 6075 Oct, [address] 89083- 0776 Sep, [place] [address] 68593- 9191 Sep, [address] 56462- 0352 Aug, Encounter for Depo-Provera contraception Z30.[address] 72466- 7944 Aug, Anxiety F41.9 ; Spinal stenosis, lumbar region M48.06 ; Radiculopathy of lumbar region M54.16 ; Asthma J45.909 ; GERD (gastroesophageal reflux disease) K21.9 ; Essential hypertension I10 and Long-term use of high- risk medication Z79.899 [place] [address] 60916- 3732 Jul, [place] [address] 14265- 8083 Jun, Hemorrhoid 455.[address] 21710- 7435 Jun, [place] [address] 25674- 3537 Jun, Anxiety 300.00 ; Asthma 493.90 ; Hyperhidrosis 705.21 ; Chest discomfort 786.59 and Upper respiratory infection 465.[address] 12782- 6137 May, Encounter for Depo-Provera contraception V25.[address] 15316- 2999 May, [address] 88397- 4564 May, [address] 78725- 5952 May, Spinal stenosis of lumbar region with radiculopathy 724.02 ; Bulging of intervertebral disc between L4 and L5 722.10 ; GERD ( gastroesophageal reflux disease) 530.81 ; Chronic pain 338.29 ; Declining mobility 799.89 and Epigastric pain 789.06 [place] [id number] [place] [address] 55207- 3380 Apr, [address] 34657- 0216 Apr, Nausea 787.02 and Heart burn 787.[address] 30818- 8440 Mar, Lumbago 724.2 ; Vitamin D deficiency 268.9 ; Anxiety 300.00 ; Allergic rhinitis 477.9 and Contraceptive surveillance V25.40 [facility] [id number] [place] [address] 45636- 1624 February, 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 ; Chronic pain 338.29 and Vaginal discharge 623.5 [facility] [id number] [place] [address] 65645- 6236 February, [facility] [id number] [place] [address] 57894- 9886 February, [facility] [id number] [place] [address] 38291538- 6543 Jan, [facility] [id number] [place] [address] 101635- 5399 Jan, [facility] [id number] [place] [address] 04721631- 5988 Dec, [facility] [id number] [place] [address] 13803- 9605 Dec, [facility] [id number] [place] [address] 05460927- 3327 Dec, [facility] [address] [address]- 1140 Dec, [facility] [address]- 9297 Dec, [facility] [address]- 4015 Dec, [facility] [id number] [place] [address] 552802- 9765 Dec, [facility] [address], [place] [address]- 2195 Dec, [facility] [id number] [place] [address] 71931- 2492 Dec, [facility] [place] [facility] [address] [id number] [place] [address]- 9133 Dec, [facility] [place] [facility] [address] [id number] [place] [address]- 4082 Dec, [facility] [place] [facility] [address] [facility] [id number] [place] [address]- 6888 Dec, [facility] [place] [facility] [address] [facility] [id number] [place] [address]- 0563 Nov, 2014 [facility] [place] [facility] [address] [id number] [place] [address]- 7064 Nov, 2014 [facility] [place] [facility] [address] [facility] [id number] [place] [address]- 6996 24 Nov, 2014 [facility] [place] [facility] [address] [facility] [id number] [place] [address]- 0421 24 Nov, 2014 [facility] [place] [facility] [address] [facility] [id number] [place] [address]- 6482 23 Nov, 2014 [facility] [place] [facility] [address] [facility] [id number] [place] [address]- 8012 23 Nov, 2014 [facility] [place] [facility] [address] [facility] [id number] [place] [address]- 2722 16 Nov, 2014 [facility] [place] [facility] [address] [facility] [id number] [place] [address]- 7676 16 Nov, 2014 [facility] [place] [facility] [address] [facility] [id number], [place] [address]- 4651 13 Nov, 2014 [facility] [place] [facility] [address] [facility] [id number] [place] [address]- 7514 13 Nov, 2014 [facility] [place] [facility] [address] [facility] [id number], [place] [address]- 6385 13 Nov, 2014 [facility] [place] [facility] [address] [facility] [id number], [place] [address]- 7401 13 Nov, 2014 [facility] [place] [facility] [address] [id number] [place] [address] Nov, 2014 [facility] [place] [facility] [address] [id number] [place] [address] Nov, 2014 [facility] [place] [facility] [address] [id number] [place] [address] Nov, 2014 [facility] [place] [facility] [address] [id number] [place] [address] Nov, 2014 [facility] [place] [facility] [address] [id number] [place] [address] Nov, 2014 [facility] [place] [facility] [address] [id number] [place] [address] Nov, 2014 [facility] [place] [facility] [address] [id number] [place] [address] Nov, 2014 [facility] [place] [facility] [address] [id number] [place] [address] Nov, 2014 [facility] [place] [facility] [address] [id number] [place] [address] Nov, 2014 [facility] [place] [facility] [address] [id number] [place] [address] Nov, [facility] [place] [facility] [address] [id number] [place] [address] Nov, [facility] [place] [facility] [address] [id number] [place] [address] Oct, [facility] [place] [facility] [address] [id number] [place] [address] Oct, [facility] [place] [facility] [address] [id number] [place] [address] Oct, [facility] [place] [facility] [address] [id number] [place] [address] Oct, [facility] [place] [facility] [address] [id number] [place] [address] Oct, [facility] [address] [id number] [place] [address] Oct, [facility] [place] [facility] [address] [id number] [place] [address] Oct, [facility] [address] [id number] [place] [address] Oct, [facility] [place] [facility] [address] [id number] [place] [address] Oct, [facility] [address] [id number] [place] [address] Oct, [facility] [place] [facility] [address] [id number] [place] [address] Oct, [facility] [address] [id number] [place] [address] Oct, [facility] [address] [id number] [place] [address] 7123 Oct, [facility] [place] [facility] [address] [id number] [place] [address] Oct, [facility] [address] [id number] [place] [address]- 1071 Oct, [facility] [place] [facility] [address] [id number] [place] [address]- 8160 Oct, [facility] [place] [facility] [address] [id number] [place] [address]- 1373 Oct, [facility] [place] [facility] [address] [id number] [place] [address]- 8248 Oct, [facility] [place] [facility] [address] [id number] [place] [address]- 9767 Oct, [facility] [place] [facility] [address] [id number] [place] [address] Oct, [facility] [place] [facility] [address] [id number] [place] [address]- 3299 Oct, [facility] [place] [facility] [address] [id number] [place] [address]- 44[address] Sep, [facility] [place] [facility] [address] [id number] [place] [address]- 9459 29 Sep, 2014 [facility] [place] [facility] [address] [id number] [place] [address]- 5949 18 Sep, 2014 [facility] [place] [facility] [address] [id number] [place] [address]- 6331 18 Sep, 2014 [facility] [place] [facility] [address] [id number] [place] [address]- 3652 Sep, [facility] [place] [facility] [address] [id number] [place] [address]- 6981 17 Sep, 2014 [facility] [place] [facility] [address] [id number] [place] [address]- 4948 15 Sep, 2014 [facility] [place] [facility] [address] [id number] [place] [address]- 6841 15 Sep, 2014 [facility] [place] [facility] [address] [id number] [place] [address]- 7337 Sep, [facility] [place] [facility] [address] [id number] [place] [address]- 9256 12 Sep, 2014 [facility] [place] [facility] [address] [id number] [place] [address]- 2307 11 Sep, 2014 [facility] [place] [facility] [address] [id number] [place] [address]- 6915 Sep, [facility] [place] [facility] [address] [id number] [place] [address]- 5618 Sep, [facility] [place] [facility] [address] [id number] [place] [address]- 7356 11 Sep, 2014 [facility] [place] [facility] [address] [id number], [place] [address]- 58[address] Sep, [facility] [place] [facility] [address] [id number] [place] [address]- 6744 Sep, [facility] [place] [facility] [address] [id number] [place] [address]- 0418 Sep, [facility] [place] [facility] [address] [facility] [id number] [place] [address]- 4409 Sep, [facility] [place] [facility] [address] [id number] [place] [address]- 1018 Sep, [facility] [place] [facility] [address] [id number] [place] [address]- 2386 Sep, [facility] [place] [facility] [address] [id number] [place] [address]- 5369 Aug, [facility] [place] [facility] [address] [id number] [place] [address]- 0649 Aug, [facility] [place] [facility] [address] [id number] [place] [address]- 0929 Aug, [facility] [place] [facility] [address] [id number] [place] [address]- 0391 Aug, [facility] [place] [facility] [address] [facility] [id number] [place] [address]- 6820 Aug, [facility] [place] [facility] [address] [id number] [place] [address]- 3881 Aug, [facility] [place] [facility] [address] [id number], [place] [address]- 3615 Aug, [facility] [place] [facility] [address] [id number] [place] [address]- 0408 Aug, [facility] [place] [facility] [address] [facility] [id number] [place] [address]- 3497 Aug, [facility] [place] [facility] [address] [facility] [id number] [place] [address]- 1293 Jul, [facility] [place] [facility] [address] [id number] [place] [address]- 8668 29 Jul, 2013 [facility] [place] [facility] [address] [id number] [place] [address]- 4665 Jul, 2013 [facility] [place] [facility] [address] [id number] [place] [address]- 4588 Jul, 2013 [facility] [place] [facility] [address] [id number] [place] [address] 16 Jul, 2013 [facility] [place] [facility] [address] [id number] [place] [address]- 5807 16 Jul, 2013 [facility] [place] [facility] [address] [id number] [place] [address]- 6730 Jul, 2013 [facility] [place] [facility] [address] [id number] [place] [address]- 2282 Jul, 2013 [facility] [place] [facility] [address] [id number] [place] [address]- 3348 10 Jul, 2013 [facility] [place] [facility] [address] [id number] [place] [address]- 8918 10 Jul, 2013 [facility] [place] [facility] [address] [id number] [place] [address]- 9663 10 Jul, 2013 [facility] [place] [facility] [address] [id number] [place] [address]- 7803 10 Jul, 2013 [facility] [place] [facility] [address] [id number] [place] [address]- 9233 07 Jul, 2013 [facility] [place] [facility] [address] [id number] [place] [address]- 6082 07 Jul, 2013 [facility] [place] [facility] [address] [id number] [place] [address]- 8367 30 Jun, 2013 [facility] [place] [facility] [address] [id number] [place] [address] 30 Sep, 2013 [facility] [place] [facility] [address] [id number] [place] [address]- 5551 25 Sep, 2013 [facility] [place] [facility] [address] [id number] [place] [address]- 1203 25 Sep, 2013 [facility] [place] [facility] [address] [id number] [place] [address]- 4196 25 Sep, 2013 [facility] [place] [facility] [address] [id number] [place] [address]- 2651 25 Sep, 2013 [facility] [place] [facility] [address] [id number] [place] [address]- 2821 24 Sep, 2013 [facility] [place] [facility] [address] [id number] [place] [address]- 0437 24 Sep, 2013 [facility] [place] [facility] [address] [id number] [place] [address]- 5177 22 Jun, 2013 [facility] [place] [facility] [address] [id number] [place] [address]- 6991 22 Jun, 2013 [facility] [place] [facility] [address] [id number] [place] [address]- 9151 17 Sep, 2013 [facility] [place] [facility] [address] [id number] [place] [address]- 3820 17 Sep, 2013 [facility] [place] [facility] [address] [id number] [place] [address]- 0138 16 Sep, 2013 [facility] [place] [facility] [address] [id number], [place] [address]- 2585 16 Sep, 2013 [facility] [place] [facility] [address] [id number], [place] [address]- 2544 15 Sep, 2013 [facility] [place] [facility] [address] [id number] [place] [address]- 2548 15 Sep, 2013 [facility] [place] [facility] [address] [id number] [place] [address]- 2773 12 Sep, 2013 [facility] [place] [facility] [address] [id number] [place] [address]- 2806 12 Sep, 2013 [facility] [place] [facility] [address] [id number] [place] [address]- 4337 11 Jun, 2013 [facility] [place] [facility] [address] [id number] [place] [address]- 5886 11 Jun, 2013 [facility] [place] [facility] [address] [id number] [place] [address] 2546 Jun, 2013 [facility] [place] [facility] [address] [id number] [place] [address]- 4792 Jun, 2013 [facility] [place] [facility] [address] [id number] [place] [address] 2544 Jun, 2013 [facility] [place] [facility] [address] [id number] [place] [address]- 1006 Jun, 2013 [facility] [place] [facility] [address] [id number] [place] [address]- 2008 Jun, 2013 [facility] [place] [facility] [address] [id number] [place] [address]- 8141 Jun, 2013 [facility] [place] [facility] [address] [id number] [place] [address]- 3420 May, [facility] [place] [facility] [address] [id number] [place] [address]- 1211 May, [facility] [place] [facility] [address] [id number] [place] [address]- 6138 May, [facility] [place] [facility] [address] [id number] [place] [address]- 2210 May, [facility] [place] [facility] [address] [id number] [place] [address]- 2540 May, [facility] [place] [facility] [address] [id number] [place] [address]- 4905 May, [facility] [place] [facility] [address] [id number] [place] [address]- 2718 May, [facility] [place] [facility] [address] [id number] [place] [address]- 4566 May, [facility] [place] [facility] [address] [id number] [place] [address]- 4688 May, [facility] [place] [facility] [address] [id number] [place] [address]- 2603 May, [facility] [place] [facility] [address] [id number] [place] [address]- 2426 May, [facility] [place] [facility] [address] [id number] [place] [address]- 2913 May, [facility] [place] [facility] [address] [id number] [place] [address]- 8394 May, [facility] [place] [facility] [address] [id number] [place] [address]- 0883 Apr, [facility] [place] [facility] [address] [id number] [place] [address]- 9558 Apr, [facility] [place] [facility] [address] [id number] [place] [address]- 7419 Apr, [facility] [place] [facility] [address] [id number] [place] [address]- 5774 Apr, [facility] [place] [facility] [address] [id number] [place] [address]- 4611 Apr, [facility] [place] [facility] [address] [id number] [place] [address]- 5150 Mar, [facility] [place] [facility] [address] [id number] [place] [address]- 4298 Mar, [facility] [place] [facility] [address] [id number] [place] [address]- 9039 Mar, [facility] [place] [facility] [address] [id number] [place] [address]- 4306 February, [facility] [place] [facility] [address] [id number] [place] [address]- 0691 February, [facility] [place] [facility] [address] [id number] [place] [address]- 5643 February, [facility] [place] [facility] [address] [id number] [place] [address]- 2837 February, [facility] [place] [facility] [address] [id number] [place] [address]- 2283 February, [facility] [place] [facility] [address] [id number] [place] [address]- 8072 February, [facility] [place] [facility] [address] [id number] [place] [address]- 3415 February, [facility] [place] [facility] [address] [id number] [place] [address]- 9628 February, [facility] [place] [facility] [address] [id number] [place] [address]- 5264 February, [facility] [place] [facility] [address] [id number] [place] [address]- 7104 Jan, [facility] [place] [facility] [address] [id number] [place] [address]- 9378 Jan, [facility] [place] [facility] [address] [id number] [place] [address]- 1869 Jan, [facility] [place] [facility] [address] [id number] [place] [address]- 6797 Jan, [facility] [place] [facility] [address] [id number] [place] [address]- 3862 Jan, [facility] [place] [facility] [address] [id number] [place] [address]- 6919 Dec, [facility] [place] [facility] [address] [id number] [place] [address]- 8484 Dec, [facility] [place] [facility] [address] [id number] [place] [address]- 5511 Dec, [facility] [place] [facility] [address] [id number] [place] [address]- 5903 Dec, [facility] [place] [facility] [address] [id number] [place] [address]- 7899 Dec, [facility] [place] [facility] [address] [id number] [place] [address]- 6215 Nov, [facility] [place] [facility] [address] [id number] [place] [address]- 2236 Nov, [facility] [place] [facility] [address] [id number] [place] [address]- 2686 Nov, [facility] [place] [facility] [address] [id number] [place] [address]- 1232 Nov, [facility] [place] [facility] [address] [id number] [place] [address]- 4828 Oct, [facility] [place] [facility] [address] [id number] [place] [address]- 3409 Oct, [facility] [place] [facility] [address] [id number] [place] [address]- 8020 Oct, [facility] [place] [facility] [address] [id number] [place] [address]- 6095 Oct, [facility] [place] [facility] [address] [id number] [place] [address]- 9718 Oct, [facility] [place] [facility] [address] [id number] [place] [address]- 1214 Oct, [facility] [place] [facility] [address] [id number] [place] [address]- 0035 Oct, [facility] [place] [facility] [address] [id number] [place] [address]- 5782 Oct, [facility] [place] [facility] [address] [id number] [place] [address]- 2523 Oct, [facility] [place] [facility] [address] [id number] [place] [address]- 5425 Oct, [facility] [place] [facility] [address] [id number] [place] [address]- 2412 Aug, [facility] [place] [facility] [address] [id number] [place] [address]- 1016 Aug, [facility] [place] [facility] [address] [id number] [place] [address]- 7593 Jul, [facility] [place] [facility] [address] [facility] [id number] [place] [address]- 4793 Jul, [facility] [place] [facility] [address] [id number] [place] [address]- 4383 Jul, [facility] [place] [facility] [address] [id number] [place] [address]- 0912 Jul, [facility] [place] [facility] [address] [id number] [place] [address]- 7667 Jul, [facility] [place] [facility] [address] [facility] [id number] [place] [address]- 2941 Jul, [facility] [place] [facility] [address] [id number], [place] [address]- 7737 Apr, [facility] [place] [facility] [address] [id number] [place] [address]- 5097 Dec, [facility] [place] [facility] [address] [facility] [id number], [place] [address]- 3571 Nov, [facility] [place] [facility] [address] [id number], [place] [address]- 6162 Nov, [facility] [place] [facility] [address] [id number], [place] [address]- 2547 Nov, [facility] [place] [facility] [address] [id number], [place] [address]- 2546 Oct, [facility] [place] [facility] [address] [facility] [id number], [place] [address] 2546 Sep, [facility] [place] [facility] [address] [facility] [id number], [place] [address]- 2546 Sep, [facility] [place] [facility] [address] [id number] [place] [address]- 1894 Sep, [facility] [address] [id number] [place] [address]- 3577 Sep, [facility] [place] [facility] [address] [id number] [place] [address]- 7166 Aug, [facility] [address] [id number] [place] [address]- 6095 Aug, [facility] [place] [facility] [address] [id number] [place] [address]- 7588 Jul, [facility] [id number] [place] [address], [place] [address]54 Jul, [facility] [place] [facility] [address] [id number] [place] [address]- 9313 28 Jun, 2012 [facility] [place] [facility] [address] [id number] [place] [address]- 6304 26 Jun, 2012 [facility] [place] [facility] [address] [id number] [place] [address]- 8672 24 Jun, 2012 [facility] [place] [facility] [address] [id number] [place] [address]- 5935 24 Jun, 2012 [facility] [place] [facility] [address] [facility] [id number] [place] [address]- 5699 12 Jun, 2012 [facility] [place] [facility] [address] [id number] [place] [address] 2545 31 Apr, 2012 [facility] [place] [facility] [address] [id number] [place] [address]- 8773 30 Apr, 2012 [facility] [place] [facility] [address] [id number] [place] [address]- 2520 24 Apr, 2012 [facility] [place] [facility] [address] [id number] [place] [address]- 7399 Mar, [facility] [place] [facility] [address] [facility] [id number] [place] [address]- 8259 05 Mar, 2012 [facility] [address] [id number] [place] [address]- 9074 Mar, [facility] [place] [facility] [address] [id number] [place] [address]- 5676 February, [facility] [place] [facility] [address] [id number] [place] [address]- 8996 Jan, [facility] [place] [facility] [address] [id number] [place] [address]- 1916 Dec, [facility] [place] [facility] [address] [id number] [place] [address]- 7104 Dec, [facility] [place] [facility] [address] [id number] [place] [address]- 7066 Dec, [facility] [place] [facility] [address] [id number] [place] [address]- 0146 Dec, [facility] [place] [facility] [address] [id number] [place] [address]- 5046 Dec, [facility] [place] [facility] [address] [id number] [place] [address]- 3726 Nov, [facility] [place] [facility] [address] [id number] [place] [address]- 8556 Nov, [facility] [place] [facility] [address] [id number] [place] [address]- 8686 Oct, [facility] [place] [facility] [address] [id number] [place] [address]- 6456 Oct, [facility] [place] [facility] [address] [id number] [place] [address]- 2056 Oct, [facility] [place] [facility] [address] [id number] [place] [address]- 9776 Sep, [facility] [place] [facility] [address] [id number] [place] [address]- 1156 Aug, [facility] [place] [facility] [address] [id number] [place] [address]- 6359 10 Aug, 2011 [facility] [place] [facility] [address] [id number] [place] [address]- 0410 28 Jul, 2011 [facility] [place] [facility] [address] [id number] [place] [address]- 0164 24 Jul, 2011 [facility] [place] [facility] [address] [id number] [place] [address]- 4236 19 Jul, 2011 [facility] [place] [facility] [address] [id number] [place] [address]- 2524 13 Jan, 2011 [facility] [place] [facility] [address] [id number] [place] [address], [place] [address]- 1677 29 Sep, 2010 [facility] [place] [facility] [address] [id number] [place] [address]- 7134 27 Sep, 2010 [facility] [place] [facility] [address] [id number] [place] [address]- 0455 Sep, [facility] [place] [facility] [address] [id number] [place] [address]- 0074 20 Sep, 2010 [facility] [place] [facility] [address] [id number] [place] [address]- 9815 06 Sep, 2010 [facility] [place] [facility] [address] [id number] [place] [address] 16 Aug, 2010 [facility] [place] [facility] [address] [id number] [place] [address] 16 Aug, 2010 [facility] [place] [facility] [address] [id number] [place] [address] 08 Aug, 2010 [facility] [place] [facility] [address] [id number] [place] [address] 19 Jul, 2010 [facility] [place] [facility] [address] [id number] [place] [address] 19 Jul, 2010 [facility] [place] [facility] [address] [id number], [place] [address] 12 Jul, 2010 [facility] [place] [facility] [address] [id number] [address] May, [facility] [id number] [address] Apr, [facility] [id number] [address] Dec, [facility] [id number], [place] [address] Sep, [facility] [id number], [place] [address] Sep, [facility] [id number] [place] [address] Aug, [facility] [id number], [place] [address] Aug, [facility] [id number] [place] [address] Jul, [facility] [id number], [place] [address] Mar, IMMUNIZATIONS No Known Immunizations SOCIAL HISTORY Never Assessed REASON FOR VISIT Letter PLAN OF CARE VITAL SIGNS MEDICATIONS Unknown [...]
--- OUTSIDE RECORDS SUMMARY | 2018-10-08 20:22 | XMS REPORT ---
Author Author ART JONES [facility] Address [address] 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 Name Role Phone ART JONES Unavailable PROBLEMS Type Condition ICD9-CM Code PTN69-UM Code Onset Dates Condition Status SNOMED Code Problem HSV (herpes simplex virus) infection B00.9 Active 76983899 Problem Edema of both feet R60.0 Active 966616373 Problem Tobacco abuse Z72.0 Active 54392140 Problem Generalized anxiety disorder F41.1 Active 29924697 Problem Chronic pain disorder G89.4 Active 342892195 Problem Chronic migraine G43.709 Active 61741394 Problem Mixed hyperlipidemia E78.2 Active 568220206 Problem Type 2 diabetes mellitus with diabetic neuropathy, unspecified E11.40 Active 68329171 Problem jail 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 Z79.4 Active 991338115 Problem Anxiety F41.9 Active 73491270 Problem Radiculopathy of lumbar region M54.16 Active 725606856 Problem Bulging lumbar disc M51.26 Active 952953927 Problem Essential hypertension I10 Active 97771942 Problem Asthma J45.909 Active 531303586 Problem Chronic pain G89.29 Active 13082060 Problem Spinal stenosis, lumbar region M48.06 Active 14125490 Problem Gastroesophageal reflux disease without esophagitis K21.9 Active 102212253 ALLERGIES No Information ENCOUNTERS Encounter Location Date Diagnosis [facility] [id number] [address] Jul, [facility] [id number] [place] [address] 04513- 1351 Jul, [facility] [id number], [place] [address] 6[address] Jun, Chronic migraine G43.709 [facility] [id number] [place] [address] 49096- 6193 12 Jun, 2018 [place] [id number] [place] [address] 61403- 4906 Jun, [place] [id number] [place] [address] 21588- 8426 Jun, [place] [address] 60078- 9929 06 Jun, 2018 Asthma J45.909 [place] [address] 37895- 7746 04 Jun, 2018 Type 2 diabetes mellitus with diabetic neuropathy, unspecified E11.40 ; Chronic pain disorder G89.4 and Generalized anxiety disorder F41.1 [place] [id number] [place] [address] 21485- 9895 May, Chronic pain G89.29 and Anxiety F41.9 [place] [address] 76534- 0902 May, [place] [address] 66620- 9443 May, Encounter for Depo-Provera contraception Z30.42 [place] [id number] [place] [address] 66358- 9026 May, [place] [id number] [place] [address] 97950- 1204 Apr, Chronic pain G89.29 [place] [id number] [place] [address] 29772- 1069 Apr, Chronic pain G89.29 and Anxiety F41.9 [place] [address] 93703- 2503 Mar, HSV (herpes simplex virus) infection B00.9 ; Anxiety F41.9 and Chronic pain G89.29 [place] [id number] [place] [address] 36271- 4650 Mar, [place] [id number] [place] [address] 30906- 6691 Mar, Chronic pain G89.29 [place] [address] [id number]- 1908 February, Chronic pain G89.29 [place] [address] 49418- 4969 Jan, Chronic pain G89.29 [place] [address] 25991- 5179 Jan, [employer] intermediary 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 Z79.4 [place] [address] 34350- 7706 Jan, Encounter for Depo-Provera contraception Z30.42 [place] [address] 92785- 0560 Jan, [place] [address] 13538- 7353 Jan, Chronic pain G89.29 and Anxiety F41.9 [place] [address] 98575- 5488 Jan, [place] [id number] [place] [address] 49443- 7203 Dec, [place] [address] 70215- 7060 Dec, Gastroesophageal reflux disease without esophagitis K21.9 and Anxiety F41.9 [place] [address] 85649- 6673 Dec, Essential hypertension I10 ; Mixed hyperlipidemia E78.2 ; Type 2 diabetes mellitus with diabetic neuropathy, unspecified E11.40 ; [employer] intermediary 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 Z79.4 ; Chronic pain G89.29 ; HSV (herpes simplex virus) infection B00.9 ; Anxiety F41.9 and Gastroesophageal reflux disease without esophagitis K21.9 [place] [id number] [place] [address] 05158- 2538 Dec, Chronic pain G89.29 and Chronic migraine G43.709 [place] [id number] [place] [address] 12939- 4483 Nov, [place] [address] 47760- 2506 Nov, Essential hypertension I10 and Chronic pain G89.29 [place] [address] 60666- 9731 Nov, Chronic pain G89.29 ; Essential hypertension I10 and Type 2 diabetes mellitus without complication E11.9 [place] [address] 43313- 9013 Oct, Chronic pain G89.29 [place] [address] 41473- 1840 Oct, [place] [address] 63306- 2377 Sep, Type 2 diabetes mellitus without complication E11.9 ; Essential hypertension I10 ; jail (current) use of insulin Z79.4 ; Chronic migraine G43.709 ; Chronic pain G89.29 and Acute non-recurrent maxillary sinusitis J01.00 [address] [id number] [place] [address] 19939- 8119 Sep, Encounter for Depo-Provera contraception Z30.42 [place] [id number] [place] [address] 13169- 4871 Sep, Chronic pain G89.29 and Radiculopathy of lumbar region M54.16 [place] [id number] [place] [address] 96833- 9641 Sep, [place] [id number] [place] [address] 89593- 2896 Sep, [place] [address] [place] [address]- 1890 Aug, Type 2 diabetes mellitus without complication E11.9 [facility] [id number] [place] [address] 00383- 0007 Aug, [facility] [id number] [place] [address] 90490- 1100 Aug, Radiculopathy of lumbar region M54.16 and Chronic pain G89.29 [facility] [id number] [place] [address] 92697- 8974 Aug, Type 2 diabetes mellitus without complication E11.9 [facility] [id number] [place] [address] 26507- 7619 Aug, Type 2 diabetes mellitus without complication E11.9 [facility] [id number] [place] [address] 50121- 4288 Jul, Type 2 diabetes mellitus without complication E11.9 [facility] [id number] [place] [address] 27758- 0853 Jul, [facility] [id number] [place] [address] 68361- 0055 Jul, Chronic pain G89.29 [facility] [id number] [place] [address] 35225- 6321 Jul, [facility] [address], [place] [address] 5417 Jul, [facility] [id number], [place] [address] 5254 Jul, Type 2 diabetes mellitus without complication E11.9 [facility] [id number] [place] [address] 12736- 7778 Jul, [facility] [id number] [place] [address] 79232- 6986 Jul, Type 2 diabetes mellitus without complication E11.9 [facility] [id number] [place] [address] 86688- 2130 Jul, [facility] [id number] [place] [address] 62571- 7255 Jul, [place] [id number] [place] [address] 44820- 0757 Jul, [place] [id number] [place] [address] 68627- 9342 Jun, Type 2 diabetes mellitus without complication E11.9 [facility] [id number] [place] [address] 47114- 3513 Jun, Chronic migraine G43.709 ; Type 2 diabetes mellitus without complication E11.9 ; Calculus of right kidney N20.0 ; Yeast dermatitis B37.2 and HSV (herpes simplex virus) infection B00.9 [place] [id number] [place] [address] 91201- 5537 Jun, Type 2 diabetes mellitus without complication E11.9 [place] [id number] [place] [address] 14977- 6968 Jun, [place] [address] 55901- 3420 Jun, Radiculopathy of lumbar region M54.16 and Chronic pain G89.29 [place] [id number] [place] [address] 80389- 4147 Jun, Encounter for Depo-Provera contraception Z30.42 [facility] [id number] [place] [address] 61632- 0736 Jun, Type 2 diabetes mellitus without complication E11.9 [place] [id number] [place] [address] 76405- 4633 Jun, [facility] [id number] [place] [address] 65516 -2214 May, Acute nasopharyngitis (common cold) J00 [facility] [address] 41497- 8846 May, Chronic pain G89.29 [place] [id number] [place] [address] 77381- 6571 10 May, 2017 Headache following lumbar puncture G97.1 [place] [id number] [place] [address] 41539- 1759 08 May, 2017 Radiculopathy of lumbar region M54.16 [place] [address] 03723- 4631 Apr, [place] [address] 30661- 9092 Apr, Type 2 diabetes mellitus without complication E11.9 ; Chronic pain G89.29 ; Essential hypertension I10 ; Radiculopathy of lumbar region M54.16 ; Spinal stenosis, lumbar region M48.06 ; Gastroesophageal reflux disease without esophagitis K21.9 ; HSV (herpes simplex virus) infection B00.9 ; Mixed hyperlipidemia E78.2 ; Anxiety F41.9 and Asthma J45.909 [place] [id number] [place] [address] 76363- 0755 Apr, Encounter for Depo-Provera contraception Z30.42 [place] [id number] [place] [address] 12747- 9636 Apr, Chronic pain G89.29 and Anxiety F41.9 [place] [id number] [place] [address] 88876- 6830 Mar, [place] [id number] [place] [address] 57729- 0021 Mar, [place] [id number] [place] [address] 04728- 6948 Mar, Mixed hyperlipidemia E78.2 [place] [id number] [place] [address] 99696- 3478 Mar, Type 2 diabetes mellitus without complication E11.9 ; Chronic pain G89.29 ; Essential hypertension I10 ; Radiculopathy of lumbar region M54.16 ; Spinal stenosis, lumbar region M48.06 ; Gastroesophageal reflux disease without esophagitis K21.9 ; HSV (herpes simplex virus) infection B00.9 ; Mixed hyperlipidemia E78.2 and Anxiety F41.9 [facility] [id number] [place] [address] 15438- 3917 Mar, [place] [id number] [place] [address] 11318- 1024 Mar, [facility] [id number] [place] [address] 68204- 8712 Mar, [place] [id number] [place] [address] 81695- 2836 February, Chronic pain G89.29 [place] [id number] [place] [address] 99712- 6763 February, [facility] [id number] [place] [address] 99024- 1396 Jan, Chronic pain G89.29 [facility] [id number] [place] [address] 97243- 3568 Jan, Type 2 diabetes mellitus without complication E11.9 [place] [id number] [place] [address] 10012- 9406 Jan, [place] [id number] [place] [address] 86073- 8522 Jan, [place] [id number] [place] [address] 66177- 7941 Jan, [facility] [id number] [place] [address] 70418- 0576 Jan, Type 2 diabetes mellitus without complication [...] J01.00 and Encounter for Depo-Provera contraception Z30.42 [place] [id number] [place] [address] 76370- 9760 Dec, Chronic pain G89.29 [place] [id number] [place] [address] 61621- 1387 Dec, Abnormal ankle brachial index (BERNARDINO) R68.89 [place] [address] 44534- 8129 Dec, [place] [address] 89948- 1883 Dec, Routine gynecological examination Z01.419 ; Chronic [...] virus) infection B00.9 and Allergic rhinitis 477.9 [place] [id number] [place] [address] 01083- 7316 Nov, Chronic pain G89.29 [place] [id number] [place] [address] 45507- 6610 02 Nov, 2016 Chronic pain G89.29 ; [...] mucoid otitis media of both ears H65.113 [place] [id number] [place] [address] 2546 Oct, [facility] [id number] [place] [address] 40644- 2491 Oct, Chronic pain G89.29 [facility] [id number] [place] [address] 84821- 7191 Oct, Chronic pain G89.29 [facility] [id number] [place] [address] 62989- 6690 Sep, Chronic pain G89.29 ; Type 2 diabetes mellitus without complication E11.9 ; Essential hypertension I10 ; Radiculopathy of lumbar region M54.16 ; Spinal stenosis, lumbar region M48.06 ; Gastroesophageal reflux disease without esophagitis K21.9 ; Encounter for surveillance of injectable contraceptive Z30.42 ; Bilateral cold feet R20.9 ; Pain of left foot M79.672 and Pain in right foot M79.671 [facility] [id number] [place] [address] 71849- 7990 Sep, [facility] [id number] [place] [address] 17444- 3403 Aug, [facility] [id number] [place] [address] 17244- 5479 Aug, [facility] [id number] [place] [address] 10242- 4770 Aug, Chronic pain G89.29 ; Type 2 diabetes mellitus without complication E11.9 ; Essential hypertension I10 ; Rash and nonspecific skin eruption R21 and Upper respiratory infection, acute J06.9 [facility] [id number] [place] [address] 62482- 0825 Aug, [facility] [id number] [place] [address] 15469- 8100 Aug, [facility] [id number] [place] [address] 14666- 4158 Jul, [facility] [id number] [place] [address] 55842- 2676 Jul, Dysuria R30.0 ; Encounter for Depo-Provera contraception Z30.42 ; Herpes simplex B00.9 ; Nausea & vomiting R11.2 and Asthma J45.909 [facility] [id number] [place] [address] 09895- 3306 Jun, Dysuria R30.0 [facility] [id number] [place] [address] 00426- 0392 19 Jun, 2016 Dysuria R30.0 [facility] [address] 99503- 8205 15 Jun, 2016 [facility] [address] 37159- 0651 13 Jun, 2016 [facility] [id number] [place] [address] 07389- 8577 May, [facility] [address] 04307- 9859 May, [facility] [id number] [place] [address] 36985- 2578 May, Chronic pain G89.29 ; Essential hypertension I10 ; Type 2 diabetes mellitus without complication E11.9 ; Edema of both feet R60.0 and Rash and nonspecific skin eruption R21 [facility] [id number] [place] [address] 74608- 6200 Apr, [facility] [id number] [place] [address] 70978- 3722 Mar, Carpal tunnel syndrome, left upper limb G56.02 and Carpal tunnel syndrome, right upper limb G56.01 [facility] [address] 97929- 7991 Mar, [facility] [id number] [place] [address] 95204- 6431 Mar, Encounter for Depo-Provera contraception Z30.42 [facility] [id number] [place] [address] 93732- 4501 February, [place] [id number] [place] [address] 73227- 9198 February, [place] [id number] [place] [address] 37802- 2893 February, Chronic pain G89.29 ; Essential hypertension I10 ; Type 2 diabetes mellitus without complication E11.9 ; HSV (herpes simplex virus) infection B00.9 ; Anxiety F41.9 ; Hypersomnia G47.10 ; Tobacco abuse Z72.0 ; Hand pain, left M79.642 ; Hand pain, right M79.641 ; Left foot pain M79.672 and Heart palpitations R00.2 [place] [id number] [place] [address] 08924- 5543 Jan, [place] [id number] [place] [address] 93198- 4073 Jan, [place] [id number] [place] [address] 99367- 7950 Jan, [place] [id number] [place] [address] 66570- 2729 Jan, [place] [id number] [place] [address] 07766- 9950 14 Jan, 2016 Upper respiratory infection J06.9 and Type 2 diabetes mellitus without complication E11.9 [place] [id number] [place] [address] 89535- 7060 Dec, [place] [id number] [place] [address] 99655- 6589 Dec, Chronic pain G89.29 ; Essential hypertension I10 ; Type 2 diabetes mellitus without complication E11.9 ; HSV (herpes simplex virus) infection B00.9 ; Anxiety F41.9 ; Upper respiratory infection J06.9 ; Hypersomnia G47.10 and Tobacco abuse Z72.0 [place] [id number] [place] [address] 29265- 1269 Dec, Encounter for Depo-Provera contraception Z30.42 [place] [address] 01197- 2314 Dec, [place] [address] [id number]- 4954 Dec, Chronic pain G89.29 ; Sinusitis J32.9 ; Snoring R06.83 and Daytime hypersomnia G47.19 [place] [address] 97054- 4410 Nov, HSV (herpes simplex virus) infection B00.9 ; Encounter for Papanicolaou smear for cervical cancer screening Z12.4 ; Screening for STD sexually transmitted disease Z11.3 and Bartholin's gland cyst N75.0 [place] [address] 60330- 2531 Nov, [place] [address] 95167- 1302 Nov, [place] [address] 12602- 4741 Nov, Essential hypertension I10 ; Type 2 diabetes mellitus without complication E11.9 ; HSV (herpes simplex virus) infection B00.9 ; Spinal stenosis, lumbar region M48.06 and Vaginal yeast infection B37.3 [place] [id number] [place] [address] 54891- 7241 Nov, [place] [id number] [place] [address] 09493- 4831 Nov, [place] [address] 90418- 0407 Oct, [place] [id number] [place] [address] 47238- 5775 Oct, HSV (herpes simplex virus) infection B00.9 ; Yeast infection B37.9 ; Change in bowel habit R19.4 ; Nausea & vomiting R11.2 and Gastroesophageal reflux disease without esophagitis K21.9 [place] [address] 13616- 9706 Oct, [address] 69455- 2018 Oct, Type 2 diabetes mellitus without complication E11.9 ; Essential hypertension I10 and Acute maxillary sinusitis, recurrence not specified J01.[address] 98401- 0432 08 Oct, [address] 94756- 6933 Oct, [address] 28876- 4122 Oct, Exposure to head lice Z20.7 ; Blood glucose abnormal R73.09 ; Boil of buttock L02.32 and Type 2 diabetes mellitus without complication E11.9 [place] [address] 26267- 3287 Oct, [address] 51279- 7725 Sep, [address] 86234- 9988 Sep, [address] 03740- 0118 Aug, Encounter for Depo-Provera contraception Z30.[address] 87132- 0134 Aug, Anxiety F41.9 ; Spinal stenosis, lumbar region M48.06 ; Radiculopathy of lumbar region M54.16 ; Asthma J45.909 ; GERD (gastroesophageal reflux disease) K21.9 ; Essential hypertension I10 and Long-term use of high- risk medication Z79.[address] 17663- 1579 Jul, [place] [id number] [place] [address] 32605- 3219 Jun, Hemorrhoid 455.6 [place] [address] 08056- 3427 Jun, [address] 49151- 2453 Jun, Anxiety 300.00 ; Asthma 493.90 ; Hyperhidrosis 705.21 ; Chest discomfort 786.59 and Upper respiratory infection 465.[address] 98462- 9110 May, Encounter for Depo-Provera contraception V25.[address] 64091- 6269 May, [address] 15094- 0975 May, [address] 59166- 0773 May, Spinal stenosis of lumbar region with radiculopathy 724.02 ; Bulging of intervertebral disc between L4 and L5 722.10 ; GERD ( gastroesophageal reflux disease) 530.81 ; Chronic pain 338.29 ; Declining mobility 799.89 and Epigastric pain 789.[address] 68815- 3895 Apr, [address] 28535- 2190 Apr, Nausea 787.02 and Heart burn 787.[address] 80300- 1637 Mar, Lumbago 724.2 ; Vitamin D deficiency 268.9 ; Anxiety 300.00 ; Allergic rhinitis 477.9 and Contraceptive surveillance V25.[address] 29392- 7894 February, 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 [id number] [address]- 3450 February, [facility] [address] [address]- 2086 February, [facility] [address] [facility] [id number] [place] [address] Jan, [facility] [address] [facility] [id number] [place] [address] Jan, [facility] [id number] [place] [address] Dec, [facility] [id number], [place] [address] Dec, [facility] [id number], [place] [address] Dec, [facility] [id number], [place] [address] Dec, [facility] [id number], [place] [address] Dec, [facility] [id number], [place] [address] Dec, [facility] [address] [facility] [id number], [place] [address] Dec, [facility] [address] [facility] [id number], [place] [address] Dec, [facility] [id number], [place] [address] Dec, [facility] [id number], [place] [address] Dec, [facility] [id number] [place] [address] Dec, 2014 [facility] [place] [facility] [address] [facility] [id number] [place] [address] Dec, 2014 [facility] [place] [facility] [address] [facility] [id number] [place] [address] Nov, 2014 [facility] [place] [facility] [address] [facility] [id number] [place] [address] Nov, 2014 [facility] [place] [facility] [address] [facility] [id number] [place] [address] 24 Nov, 2014 [facility] [place] [facility] [address] [facility] [id number] [place] [address] 9272 24 Nov, 2014 [facility] [place] [facility] [address] [facility] [id number] [place] [address] 7970 23 Nov, 2014 [facility] [place] [facility] [address] [id number] [place] [address] 23 Nov, 2014 [facility] [place] [facility] [address] [facility] [id number] [place] [address] 5299 16 Nov, 2014 [facility] [place] [facility] [address] [facility] [id number] [place] [address]- 1755 16 Nov, 2014 [facility] [place] [facility] [address] [id number] [place] [address] 6139 13 Nov, 2014 [facility] [place] [facility] [address] [facility] [id number] [place] [address]- 1365 13 Nov, 2014 [facility] [place] [facility] [address] [facility] [id number] [place] [address]- 1727 13 Nov, 2014 [facility] [place] [facility] [address] [facility] [id number] [place] [address]- 9421 13 Nov, 2014 [facility] [place] [facility] [address] [facility] [id number] [place] [address]- 4458 13 Nov, 2014 [facility] [place] [facility] [address] [facility] [id number], [place] [address] Nov, 2014 [facility] [place] [facility] [address] [id number] [place] [address]- 0496 Nov, 2014 [facility] [place] [facility] [address] [id number] [place] [address]- 8446 Nov, 2014 [facility] [place] [facility] [address] [facility] [id number] [place] [address]- 0486 Nov, 2014 [facility] [place] [facility] [address] [id number] [place] [address]- 2809 Nov, 2014 [facility] [place] [facility] [address] [id number] [place] [address]- 7875 Nov, 2014 [facility] [place] [facility] [address] [id number] [place] [address]- 8196 Nov, 2014 [facility] [place] [facility] [address] [facility] [id number] [place] [address]- 0817 Nov, 2014 [facility] [place] [facility] [address] [facility] [id number] [place] [address]- 2678 Nov, 2014 [facility] [place] [facility] [address] [facility] [id number] [place] [address]- 4502 Nov, 2014 [facility] [place] [facility] [address] [facility] [id number] [place] [address]- 3714 Oct, [facility] [place] [facility] [address] [id number] [place] [address]- 4089 Oct, [facility] [place] [facility] [address] [facility] [id number] [place] [address]- 2545 Oct, [facility] [place] [facility] [address] [id number] [place] [address]- 1166 Oct, [facility] [place] [facility] [address] [facility] [id number] [place] [address]- 8829 Oct, [facility] [place] [facility] [address] [facility] [id number] [place] [address]- 2843 Oct, [facility] [place] [facility] [address] [id number] [place] [address]- 3451 Oct, [facility] [place] [facility] [address] [id number] [place] [address]- 1348 Oct, [facility] [place] [facility] [address] [id number] [place] [address]- 2559 Oct, [facility] [place] [facility] [address] [id number] [place] [address]- 7221 Oct, [facility] [place] [facility] [address] [id number] [place] [address]- 9978 Oct, [facility] [place] [facility] [address] [id number] [place] [address]- 9927 Oct, [facility] [place] [facility] [address] [id number] [place] [address]- 4722 Oct, [facility] [place] [facility] [address] [id number] [place] [address]- 3889 Oct, [facility] [place] [facility] [address] [id number] [place] [address]- 0069 Oct, [facility] [place] [facility] [address] [id number] [place] [address]- 9886 Oct, [facility] [place] [facility] [address] [id number] [place] [address]- 3358 Oct, [facility] [place] [facility] [address] [id number], [place] [address]- 8060 Oct, [facility] [place] [facility] [address] [id number] [place] [address]- 3322 Oct, [facility] [place] [facility] [address] [id number] [place] [address]- 1041 Oct, [facility] [place] [facility] [address] [id number] [place] [address]85 Oct, [facility] [place] [facility] [address] [id number], [place] [address]- 6[address] 29 Sep, 2014 [facility] [place] [facility] [address] [id number] [place] [address]- 1356 29 Sep, 2014 [facility] [place] [facility] [address] [id number] [place] [address] 18 Sep, 2014 [facility] [place] [facility] [address] [id number] [place] [address]- 3079 18 Sep, 2014 [facility] [place] [facility] [address] [id number] [place] [address]- 9384 17 Sep, 2014 [facility] [place] [facility] [address] [id number] [place] [address]- 3016 17 Sep, 2014 [facility] [place] [facility] [address] [id number] [place] [address]- 3325 15 Sep, 2014 [facility] [place] [facility] [address] [id number] [place] [address]- 7238 15 Sep, 2014 [facility] [place] [facility] [address] [id number] [place] [address]- 4865 12 Sep, 2014 [facility] [place] [facility] [address] [id number] [place] [address]- 7042 12 Sep, 2014 [facility] [place] [facility] [address] [id number] [place] [address]- 8670 11 Sep, 2014 [facility] [place] [facility] [address] [id number] [place] [address]- 5647 11 Sep, 2014 [facility] [place] [facility] [address] [id number] [place] [address]- 9549 11 Sep, 2014 [facility] [place] [facility] [address] [id number] [place] [address]- 2474 11 Sep, 2014 [facility] [place] [facility] [address] [id number] [place] [address]- 4928 11 Sep, 2014 [facility] [place] [facility] [address] [id number] [place] [address]- 2149 11 Sep, 2014 [facility] [place] [facility] [address] [id number] [place] [address]- 5585 Sep, [facility] [place] [facility] [address] [id number] [place] [address]- 5968 Sep, [facility] [place] [facility] [address] [id number] [place] [address]- 4313 Sep, [facility] [place] [facility] [address] [id number] [place] [address]- 0536 Sep, [facility] [place] [facility] [address] [id number] [place] [address]- 8161 Aug, [facility] [place] [facility] [address] [id number] [place] [address]- 9168 Aug, [facility] [place] [facility] [address] [id number] [place] [address]- 7938 Aug, [facility] [place] [facility] [address] [id number] [place] [address]- 8049 Aug, [facility] [place] [facility] [address] [id number] [place] [address]- 3077 Aug, [facility] [place] [facility] [address] [id number] [place] [address]- 6865 Aug, [facility] [place] [facility] [address] [id number] [place] [address]- 0698 Aug, [facility] [place] [facility] [address] [id number] [place] [address]- 4915 Aug, [facility] [place] [facility] [address] [id number] [place] [address]- 1101 Aug, [facility] [place] [facility] [address] [id number] [place] [address] Jul, [facility] [place] [facility] [address] [id number] [place] [address]- 6168 Jul, [facility] [place] [facility] [address] [id number] [place] [address]- 4732 Jul, [facility] [place] [facility] [address] [id number] [place] [address]- 4994 23 Jul, 2013 [facility] [place] [facility] [address] [id number] [place] [address]- 0323 16 Jul, 2014 [facility] [place] [facility] [address] [id number] [place] [address]- 2964 16 Jul, 2014 [facility] [place] [facility] [address] [id number] [place] [address]- 3504 Jul, [facility] [place] [facility] [address] [id number] [place] [address]- 4586 Jul, [facility] [place] [facility] [address] [id number] [place] [address]- 0091 Jul, [facility] [place] [facility] [address] [id number] [place] [address]- 9155 10 Jul, 2014 [facility] [place] [facility] [address] [id number] [place] [address]- 7156 10 Jul, 2014 [facility] [place] [facility] [address] [id number] [place] [address]- 0129 10 Jul, 2014 [facility] [place] [facility] [address] [id number], [place] [address]- 8739 07 Jul, 2014 [facility] [place] [facility] [address] [id number], [place] [address]- 8685 Jul, [facility] [place] [facility] [address] [id number], [place] [address]- 0582 30 Jun, 2013 [facility] [place] [facility] [address] [id number] [place] [address]- 6172 30 Jun, 2014 [facility] [place] [facility] [address] [id number], [place] [address]- 4370 25 Jun, 2014 [facility] [place] [facility] [address] [id number] [place] [address]- 2576 25 Jun, 2014 [facility] [place] [facility] [address] [id number] [place] [address]- 5159 25 Sep, 2013 [facility] [place] [facility] [address] [id number] [place] [address] 2546 25 Sep, 2013 [facility] [place] [facility] [address] [id number] [place] [address] 2546 24 Sep, 2013 [facility] [place] [facility] [address] [id number] [place] [address] 2546 24 Sep, 2013 [facility] [place] [facility] [address] [id number] [place] [address] 2540 22 Sep, 2013 [facility] [place] [facility] [address] [id number] [place] [address]- 6203 22 Sep, 2013 [facility] [place] [facility] [address] [id number] [place] [address]- 8999 17 Sep, 2013 [facility] [place] [facility] [address] [id number] [place] [address]- 2784 17 Sep, 2013 [facility] [place] [facility] [address] [id number] [place] [address]- 2542 16 Sep, 2013 [facility] [place] [facility] [address] [id number] [place] [address]- 3316 16 Sep, 2013 [facility] [place] [facility] [address] [id number] [place] [address]- 2544 15 Sep, 2013 [facility] [place] [facility] [address] [id number] [place] [address] 2549 15 Sep, 2013 [facility] [place] [facility] [address] [id number] [place] [address] 2548 12 Sep, 2013 [facility] [place] [facility] [address] [id number] [place] [address] 2546 12 Sep, 2013 [facility] [place] [facility] [address] [id number] [place] [address]- 2543 11 Sep, 2013 [facility] [place] [facility] [address] [id number] [place] [address]- 2544 11 Sep, 2013 [facility] [place] [facility] [address] [id number] [place] [address]- 3527 Jun, 2013 [facility] [place] [facility] [address] [id number] [place] [address]- 6243 Jun, 2013 [facility] [place] [facility] [address] [id number] [place] [address]- 8280 Jun, 2013 [facility] [place] [facility] [address] [id number] [place] [address]- 1625 Jun, 2013 [facility] [place] [facility] [address] [id number] [place] [address]- 1102 Jun, [facility] [place] [facility] [address] [id number] [place] [address]- 6337 Jun, [facility] [place] [facility] [address] [id number] [place] [address]- 7011 May, [facility] [place] [facility] [address] [id number] [place] [address]- 3703 May, [facility] [place] [facility] [address] [id number] [place] [address]- 4491 May, [facility] [place] [facility] [address] [id number] [place] [address]- 3318 May, [facility] [place] [facility] [address] [id number] [place] [address]- 9864 May, [facility] [place] [facility] [address] [id number] [place] [address]- 2326 May, [facility] [place] [facility] [address] [id number] [place] [address]- 0799 May, [facility] [place] [facility] [address] [id number] [place] [address]- 9403 May, [facility] [place] [facility] [address] [id number] [place] [address]- 9560 May, [facility] [place] [facility] [address] [id number] [place] [address]- 0664 May, [facility] [place] [facility] [address] [id number] [place] [address]- 2095 May, [facility] [place] [facility] [address] [id number] [place] [address]- 6675 May, [facility] [place] [facility] [address] [id number] [place] [address]- 3520 May, [facility] [place] [facility] [address] [id number] [place] [address]- 3651 Apr, [facility] [place] [facility] [address] [id number] [place] [address]- 5214 Apr, [facility] [place] [facility] [address] [id number] [place] [address]- 0973 Apr, [facility] [place] [facility] [address] [id number] [place] [address]- 8683 Apr, [facility] [place] [facility] [address] [id number] [place] [address]- 2961 Apr, [facility] [place] [facility] [address] [id number] [place] [address]- 1185 Mar, [facility] [place] [facility] [address] [id number] [place] [address]- 6356 Mar, [facility] [place] [facility] [address] [id number] [place] [address]- 9989 Mar, [facility] [place] [facility] [address] [id number] [place] [address]- 4522 February, [facility] [place] [facility] [address] [id number] [place] [address]- 2080 February, [facility] [place] [facility] [address] [id number] [place] [address]- 0779 February, [facility] [place] [facility] [address] [id number] [place] [address]- 8520 February, [facility] [place] [facility] [address] [id number] [place] [address]- 5910 February, [facility] [address] [id number] [place] [address]- 8199 February, [facility] [place] [facility] [address] [id number] [place] [address]- 5346 February, [facility] [address] [id number] [place] [address]- 5544 February, [facility] [place] [facility] [address] [id number] [place] [address]- 9342 February, [facility] [address] [id number] [place] [address]- 9784 Jan, [facility] [place] [facility] [address] [id number] [place] [address]- 6037 Jan, [facility] [place] [facility] [address] [id number] [place] [address]- 1084 Jan, [facility] [address] [id number] [place] [address]- 3110 Jan, [facility] [place] [facility] [address] [id number] [place] [address]- 6367 Jan, [facility] [address] [id number] [place] [address]- 3262 Dec, [facility] [place] [facility] [address] [id number] [place] [address]- 4916 Dec, [facility] [place] [facility] [address] [id number] [place] [address]- 4401 Dec, [facility] [place] [facility] [address] [id number] [place] [address]- 3940 Dec, [facility] [place] [facility] [address] [id number] [place] [address]- 4956 Dec, [facility] [place] [facility] [address] [id number] [place] [address]- 7784 Nov, [facility] [address] [id number] [place] [address]- 7821 Nov, [facility] [place] [facility] [address] [id number] [place] [address]- 3422 Nov, [facility] [place] [facility] [address] [id number] [place] [address]- 7580 Nov, [facility] [place] [facility] [address] [id number] [place] [address]- 0680 Oct, [facility] [place] [facility] [address] [id number] [place] [address]- 9222 Oct, [facility] [place] [facility] [address] [id number] [place] [address]- 8025 Oct, [facility] [place] [facility] [address] [id number] [place] [address]- 0966 Oct, [facility] [place] [facility] [address] [id number] [place] [address]- 3145 Oct, [facility] [place] [facility] [address] [id number] [place] [address]- 2380 Oct, [facility] [place] [facility] [address] [id number] [place] [address]- 1384 Oct, [facility] [place] [facility] [address] [id number] [place] [address]- 7051 Oct, [facility] [place] [facility] [address] [id number], [place] [address]- 2346 Oct, [facility] [place] [facility] [address] [id number] [place] [address]- 5678 Oct, [facility] [place] [facility] [address] [id number], [place] [address]- 4837 Aug, [facility] [place] [facility] [address] [id number] [place] [address]- 0624 Aug, [facility] [place] [facility] [address] [id number] [place] [address]- 2585 Jul, [facility] [address] [id number] [place] [address]- 5200 Jul, [facility] [place] [facility] [address] [id number] [place] [address]- 0278 Jul, [facility] [place] [facility] [address] [id number] [place] [address]- 8197 Jul, [facility] [place] [facility] [address] [id number] [place] [address]- 5152 Jul, [facility] [place] [facility] [address] [id number] [place] [address]- 1084 Jul, [facility] [place] [facility] [address] [id number] [place] [address]- 9594 Apr, [facility] [place] [facility] [address] [id number] [place] [address]- 0185 Dec, [facility] [place] [facility] [address] [id number] [place] [address]- 9309 Nov, [facility] [place] [facility] [address] [id number] [place] [address]- 4223 Nov, [facility] [place] [facility] [address] [facility] [id number] [place] [address]- 8521 Nov, [facility] [place] [facility] [address] [id number] [place] [address]- 4497 Oct, [facility] [place] [facility] [address] [id number] [place] [address]- 9620 Sep, [facility] [place] [facility] [address] [id number] [place] [address]- 4404 Sep, [facility] [place] [facility] [address] [id number] [place] 4137 Sep, [facility] [place] [facility] [address] [id number] [place] 1118 Sep, [facility] [place] [facility] [address] [id number] [place] [address]- 1036 Aug, [facility] [place] [facility] [address] [id number] [place] [address]- 0285 Aug, [facility] [place] [facility] [address] [id number] [place] [address]- 9917 Jul, [facility] [place] [facility] [address] [id number] [place] [address]- 0652 Jul, [facility] [place] [facility] [address] [id number] [place] [address]- 0954 28 Jun, 2012 [facility] [place] [facility] [address] [id number] [place] [address]- 1847 26 Jun, 2012 [facility] [place] [facility] [address] [id number] [place] [address]- 7648 24 Jun, 2012 [facility] [place] [facility] [address] [id number] [place] [address] 24 Jun, 2012 [facility] [place] [facility] [address] [id number] [place] [address] Jun, [facility] [place] [facility] [address] [id number] [place] [address] Apr, [facility] [place] [facility] [address] [id number] [place] [address] Apr, [facility] [place] [facility] [address] [id number] [place] [address] Apr, [facility] [place] [facility] [address] [id number] [place] [address] Mar, [facility] [place] [facility] [address] [id number] [place] [address] Mar, [facility] [place] [facility] [address] [id number] [place] [address] Mar, [facility] [place] [facility] [address] [id number], [place] [address] February, [facility] [place] [facility] [address] [id number] [place] [address] Jan, [facility] [place] [facility] [address] [id number] [place] [address] Dec, [facility] [place] [facility] [address] [id number] [place] [address] Dec, [facility] [place] [facility] [address] [id number] [place] [address] Dec, [facility] [place] [facility] [address] [id number] [place] [address] Dec, [facility] [place] [facility] [address] [id number] [place] [address] Dec, [facility] [place] [facility] [address] [facility] [id number] [place] [address] 14 Nov, 2011 [facility] [place] [facility] [address] [id number] [place] [address] Nov, [facility] [place] [facility] [address] [id number] [place] [address] Oct, [facility] [place] [facility] [address] [id number] [place] [address] Oct, [facility] [place] [facility] [address] [id number], [place] [address] Oct, [facility] [place] [facility] [address] [id number] [place] [address] Sep, [facility] [place] [facility] [address] [id number] [place] [address] Aug, [facility] [place] [facility] [address] [id number] [place] [address] 10 Aug, 2011 [facility] [place] [facility] [address] [facility] [id number] [place] [address] 28 Jul, 2011 [facility] [place] [facility] [address] [id number] [place] [address] 24 Jul, 2011 [facility] [place] [facility] [address] [id number] [place] [address] 19 Jul, 2011 [facility] [place] [facility] [address] [id number] [place] [address] Jan, [facility] [place] [facility] [address] [id number] [place] [address] 29 Sep, 2010 [facility] [place] [facility] [address] [id number] [place] [address] 27 Sep, 2010 [facility] [place] [facility] [address] [id number] [place] [address] Sep, [facility] [place] [facility] [address] [id number] [place] [address] Sep, [facility] [place] [facility] [address] [id number] [place] [address] Sep, [facility] [place] [facility] [address] [id number] [place] [address] Aug, [facility] [place] [facility] [address] [id number] [place] [address] 16 Aug, 2010 [facility] [place] [facility] [address] [id number] [place] [address] 08 Aug, 2010 [facility] [place] [facility] [address] [id number] [place] [address] Jul, [facility] [place] [facility] [address] [id number] [place] [address] Jul, [facility] [place] [facility] [address] [id number] [place] [address] Jul, [facility] [place] [facility] [address] [id number] [place] [address] May, [facility] [place] [facility] [address] [id number] [place] [address] Apr, [facility] [address] [id number] [address] Dec, [facility] [address] [facility] [id number], [place] [address] Sep, [facility] [address] [facility] [id number], [place] [address] Sep, [facility] [id number], [place] [address] Aug, [facility] [address] [id number], [place] [address] Aug, [facility] [id number], [place] [address] Jul, [facility] [id number], [place] [address] Mar, IMMUNIZATIONS No Known Immunizations SOCIAL HISTORY Never Assessed REASON FOR VISIT Prior Authorization Request PLAN OF CARE VITAL SIGNS MEDICATIONS Medication Instructions Dosage Frequency Start Date End Date Duration Status Flonase 50 MCG/ACT Nasally 2 times a day 1 spray in each nostril 12h 30 days Active RESULTS No Results PROCEDURES [...] 2016 Hospitalization History Surgery(s) only Hospitalization History [facility] and transferred to [place]-sepsis/ARF 2016
--- OUTSIDE RECORDS SUMMARY | 2018-10-08 20:23 | XMS REPORT ---
Author Author ART JONES [facility] Address [address] [place] [address] Care Team Providers Care Aba Therapist Name Role Phone ART JONES Unavailable PROBLEMS Type Condition ICD9-CM Code MWR25-EZ Code Onset Dates Condition Status SNOMED Code Problem HSV (herpes simplex virus) infection B00.9 Active 20136586 Problem Edema of both feet R60.0 Active 197459064 Problem Tobacco abuse Z72.0 Active 09582112 Problem Generalized anxiety disorder F41.1 Active 40726960 Problem Chronic pain disorder G89.4 Active 057939174 Problem Chronic migraine G43.709 Active 06053110 Problem Mixed hyperlipidemia E78.2 Active 098022867 Problem Type 2 diabetes mellitus with diabetic neuropathy, unspecified E11.40 Active 36854740 Problem skilled nursing 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 Z79.4 Active 973532325 Problem Anxiety F41.9 Active 39196271 Problem Radiculopathy of lumbar region M54.16 Active 585799574 Problem Bulging lumbar disc M51.26 Active 240778766 Problem Essential hypertension I10 Active 26019451 Problem Asthma J45.909 Active 821481228 Problem Chronic pain G89.29 Active 47822123 Problem Spinal stenosis, lumbar region M48.06 Active 66112064 Problem Gastroesophageal reflux disease without esophagitis K21.9 Active 478532098 ALLERGIES No Information ENCOUNTERS Encounter Location Date Diagnosis [facility] [id number] [address] Jul, [facility] [id number] [place] [address] 44874- 0803 Jun, Chronic migraine G43.709 [facility] [id number] [address] Jun, [facility] [id number] [place] [address] 95447- 6097 07 Jun, 2018 [facility] [id number] [place] [address] 29672- 6060 07 Jun, 2018 [place] [address] 18865- 6981 06 Jun, 2018 Asthma J45.909 [place] [address] 72308- 8145 04 Jun, 2018 Type 2 diabetes mellitus with diabetic neuropathy, unspecified E11.40 ; Chronic pain disorder G89.4 and Generalized anxiety disorder F41.1 [place] [address] 06753- 7972 May, Chronic pain G89.29 and Anxiety F41.9 [place] [address] 19748- 7207 May, [place] [address] 11742- 9770 May, Encounter for Depo-Provera contraception Z30.42 [place] [address] 86187- 0859 May, [place] [id number] [place] [address] 16556- 5174 Apr, Chronic pain G89.29 [place] [id number] [place] [address] 47665- 2278 Apr, Chronic pain G89.29 and Anxiety F41.9 [place] [id number] [place] [address] 68387- 2418 Mar, HSV (herpes simplex virus) infection B00.9 ; Anxiety F41.9 and Chronic pain G89.29 [facility] [id number] [place] [address] 49960- 7869 Mar, [facility] [address] 78874- 9853 Mar, Chronic pain G89.29 [place] [id number] [place] [address] 37440- 2320 February, Chronic pain G89.29 [place] [id number] [place] [address] [address] Jan, Chronic pain G89.29 [place] [id number] [place] [address] 70727- 0469 Jan, skilled nursing 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 Z79.4 [place] [id number] [place] [address] 11969- 8823 Jan, Encounter for Depo-Provera contraception Z30.42 [place] [address] 43031- 7431 Jan, [place] [address] 13459- 2778 Jan, Chronic pain G89.29 and Anxiety F41.9 [place] [address] 61629- 1520 Jan, [place] [address] 61815- 2503 Dec, [place] [id number] [place] [address] 63656- 9847 Dec, Gastroesophageal reflux disease without esophagitis K21.9 and Anxiety F41.9 [place] [id number] [place] [address] 59061- 0036 Dec, Essential hypertension I10 ; Mixed hyperlipidemia E78.2 ; Type 2 diabetes mellitus with diabetic neuropathy, unspecified E11.40 ; skilled nursing 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 Z79.4 ; Chronic pain G89.29 ; HSV (herpes simplex virus) infection B00.9 ; Anxiety F41.9 and Gastroesophageal reflux disease without esophagitis K21.9 [place] [id number] [place] [address] 26065- 9408 07 Dec, 2017 Chronic pain G89.29 and Chronic migraine G43.709 [place] [id number] [place] [address] 94453- 6618 Nov, [place] [id number] [place] [address] 54979- 8558 Nov, Essential hypertension I10 and Chronic pain G89.29 [place] [id number] [place] [address] 45904- 6566 Nov, Chronic pain G89.29 ; Essential hypertension I10 and Type 2 diabetes mellitus without complication E11.9 [place] [id number] [place] [address] 04929- 9367 Oct, Chronic pain G89.29 [place] [address] 69786- 6786 Oct, [place] [id number] [place] [address] 40128- 0552 Sep, Type 2 diabetes mellitus without complication E11.9 ; Essential hypertension I10 ; 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 ; Chronic migraine G43.709 ; Chronic pain G89.29 and Acute non-recurrent maxillary sinusitis J01.00 [place] [id number] [place] [address] 84434- 0817 Sep, Encounter for Depo-Provera contraception Z30.42 [place] [id number] [place] [address] 10659- 5736 Sep, Chronic pain G89.29 and Radiculopathy of lumbar region M54.16 [place] [id number] [place] [address] 67294- 6151 Sep, [place] [address] 37259- 0339 Sep, [place] [id number] [place] [address] 58920- 9978 Aug, Type 2 diabetes mellitus without complication E11.9 [place] [address] [address] 0182 Aug, [facility] [id number] [place] [address] 27837- 1024 Aug, Radiculopathy of lumbar region M54.16 and Chronic pain G89.29 [facility] [id number] [place] [address] 60410- 4611 Aug, Type 2 diabetes mellitus without complication E11.9 [facility] [id number] [place] [address] 59744- 7825 Aug, Type 2 diabetes mellitus without complication E11.9 [facility] [id number] [place] [address] 63437- 3522 Jul, Type 2 diabetes mellitus without complication E11.9 [facility] [id number] [place] [address] 54695- 6818 Jul, [facility] [id number] [place] [address] 22164- 5683 Jul, Chronic pain G89.29 [facility] [id number] [place] [address] 73533- 8344 Jul, [facility] [id number] [place] [address] 36820- 0742 Jul, [facility] [address] [address]- 9896 Jul, Type 2 diabetes mellitus without complication E11.9 [facility] [address] [address]- 7439 Jul, [facility] [id number] [place] [address] 00337- 6240 Jul, Type 2 diabetes mellitus without complication E11.9 [facility] [address] [address]- 8977 Jul, [facility] [id number] [place] [address] 39932- 1624 Jul, [facility] [id number] [place] [address] 51206- 5151 Jul, [place] [address] 67952- 0199 Jun, Type 2 diabetes mellitus without complication E11.9 [place] [address] 03120- 7792 Jun, Chronic migraine G43.709 ; Type 2 diabetes mellitus without complication E11.9 ; Calculus of right kidney N20.0 ; Yeast dermatitis B37.2 and HSV (herpes simplex virus) infection B00.9 [place] [address] 44334- 4544 Jun, Type 2 diabetes mellitus without complication E11.9 [place] [address] 04936- 4090 Jun, [place] [address] 16588- 9769 Jun, Radiculopathy of lumbar region M54.16 and Chronic pain G89.29 [place] [id number] [place] [address] 31662- 6034 Jun, Encounter for Depo-Provera contraception Z30.42 [place] [id number] [place] [address] 60298- 9207 Jun, Type 2 diabetes mellitus without complication E11.9 [place] [id number] [place] [address] 97725- 7461 Jun, [facility] [address] 20641 -3293 May, Acute nasopharyngitis (common cold) J00 [facility] [id number] [place] [address] 05577- 7128 May, Chronic pain G89.29 [place] [address] [place] [address]- 0595 May, Headache following lumbar puncture G97.1 [place] [address] 71424- 5375 May, Radiculopathy of lumbar region M54.16 [place] [address] 67175- 3695 Apr, [place] [address] 40069- 1562 Apr, Type 2 diabetes mellitus without complication E11.9 ; Chronic pain G89.29 ; Essential hypertension I10 ; Radiculopathy of lumbar region M54.16 ; Spinal stenosis, lumbar region M48.06 ; Gastroesophageal reflux disease without esophagitis K21.9 ; HSV (herpes simplex virus) infection B00.9 ; Mixed hyperlipidemia E78.2 ; Anxiety F41.9 and Asthma J45.[address] 44420- 9798 Apr, Encounter for Depo-Provera contraception Z30.[address] 80815- 3428 Apr, Chronic pain G89.29 and Anxiety F41.9 [place] [id number] [place] [address] 72427- 1519 Mar, [place] [address] 18047- 0488 Mar, [place] [id number] [place] [address] 45156- 4810 Mar, Mixed hyperlipidemia E78.2 [place] [address] 74270- 1342 Mar, Type 2 diabetes mellitus without complication E11.9 ; Chronic pain G89.29 ; Essential hypertension I10 ; Radiculopathy of lumbar region M54.16 ; Spinal stenosis, lumbar region M48.06 ; Gastroesophageal reflux disease without esophagitis K21.9 ; HSV (herpes simplex virus) infection B00.9 ; Mixed hyperlipidemia E78.2 and Anxiety F41.9 [place] [id number] [place] [address] 60625- 3034 Mar, [facility] [id number] [place] [address] 37245- 1363 Mar, [place] [id number] [place] [address] 32831- 7354 Mar, [facility] [id number] [place] [address] 29902- 7043 February, Chronic pain G89.29 [place] [id number] [place] [address] 91541- 0341 February, [facility] [id number] [place] [address] 30971- 1127 Jan, Chronic pain G89.29 [place] [address] [place] [address] 85723- 5785 Jan, Type 2 diabetes mellitus without complication E11.9 [place] [id number] [place] [address] 91957- 6399 Jan, [facility] [id number] [place] [address] 23808- 5079 Jan, [place] [id number] [place] [address] 07240- 7887 Jan, [facility] [id number] [place] [address] 95236- 3413 Jan, Type 2 diabetes mellitus without complication [...] J01.00 and Encounter for Depo-Provera contraception Z30.42 [place] [address] [place] [address] 54632- 1222 Dec, Chronic pain G89.29 [place] [id number] [place] [address] 45231- 3644 Dec, Abnormal ankle brachial index (BERNARDINO) R68.89 [place] [address] 60811- 1088 Dec, [place] [address] [place] [address] 11780- 0705 Dec, Routine gynecological examination Z01.419 ; [...] B00.9 and Allergic rhinitis 477.9 [place] [address] [place] [address] 81839- 4802 28 Nov, 2016 Chronic pain G89.29 [place] [address] [place] [address] 47414- 6556 02 Nov, 2016 Chronic pain G89.29 ; [...] media of both ears H65.113 [place] [address] [place] [address] 50292- 3240 Oct, [place] [id number] [place] [address] 11767- 9518 Oct, Chronic pain G89.29 [place] [id number] [place] [address] 27583- 9648 Oct, Chronic pain G89.29 [place] [address] [place] [address] 54566- 9239 Sep, Chronic pain G89.29 ; Type 2 diabetes mellitus without complication E11.9 ; Essential hypertension I10 ; Radiculopathy of lumbar region M54.16 ; Spinal stenosis, lumbar region M48.06 ; Gastroesophageal reflux disease without esophagitis K21.9 ; Encounter for surveillance of injectable contraceptive Z30.42 ; Bilateral cold feet R20.9 ; Pain of left foot M79.672 and Pain in right foot M79.671 [place] [id number] [place] [address] 37852- 7583 Sep, [place] [id number] [place] [address] 58088- 6030 Aug, [place] [address] [place] [address] 95002- 9516 Aug, [place] [address] [place] [address] 66386- 7129 Aug, Chronic pain G89.29 ; Type 2 diabetes mellitus without complication E11.9 ; Essential hypertension I10 ; Rash and nonspecific skin eruption R21 and Upper respiratory infection, acute J06.9 [place] [address] [place] [address] 38662- 6660 Aug, [place] [address] [place] [address] 24047- 2496 Aug, [place] [address] 96426- 1202 Jul, [place] [address] [place] [address] 02323- 9339 Jul, Dysuria R30.0 ; Encounter for Depo-Provera contraception Z30.42 ; Herpes simplex B00.9 ; Nausea & vomiting R11.2 and Asthma J45.909 [facility] [id number] [place] [address] 74699- 8163 21 Jun, 2016 Dysuria R30.0 [facility] [id number] [place] [address] 10586- 3587 19 Jun, 2016 Dysuria R30.0 [facility] [address] 16526- 1972 15 Jun, 2016 [facility] [address] 52273- 4054 13 Jun, 2016 [place] [address] 75170- 7215 May, [place] [address] 98325- 8654 May, [place] [address] 24164- 9475 May, Chronic pain G89.29 ; Essential hypertension I10 ; Type 2 diabetes mellitus without complication E11.9 ; Edema of both feet R60.0 and Rash and nonspecific skin eruption R21 [place] [id number] [place] [address] 95925- 6213 Apr, [facility] [id number] [place] [address] 25832- 3384 Mar, Carpal tunnel syndrome, left upper limb G56.02 and Carpal tunnel syndrome, right upper limb G56.01 [place] [id number] [place] [address] 20251- 3253 Mar, [place] [address] 80967- 8790 Mar, Encounter for Depo-Provera contraception Z30.42 [facility] [id number] [place] [address] 82913- 6486 February, [place] [id number] [place] [address] 21289- 5150 February, [place] [address] 07312- 9915 February, Chronic pain G89.29 ; Essential hypertension I10 ; Type 2 diabetes mellitus without complication E11.9 ; HSV (herpes simplex virus) infection B00.9 ; Anxiety F41.9 ; Hypersomnia G47.10 ; Tobacco abuse Z72.0 ; Hand pain, left M79.642 ; Hand pain, right M79.641 ; Left foot pain M79.672 and Heart palpitations R00.2 [place] [address] 22641- 4261 Jan, [place] [address] 57350- 0080 Jan, [place] [address] 42727- 7923 Jan, [place] [address] 41994- 7978 Jan, [address] 06977- 3556 Jan, Upper respiratory infection J06.9 and Type 2 diabetes mellitus without complication E11.9 [place] [id number] [place] [address] 14458- 9672 Dec, [place] [address] 14462- 1146 Dec, Chronic pain G89.29 ; Essential hypertension I10 ; Type 2 diabetes mellitus without complication E11.9 ; HSV (herpes simplex virus) infection B00.9 ; Anxiety F41.9 ; Upper respiratory infection J06.9 ; Hypersomnia G47.10 and Tobacco abuse Z72.0 [place] [id number] [place] [address] 34648- 4591 17 Dec, 2015 Encounter for Depo-Provera contraception Z30.42 [place] [address] [place] [address] 22898- 7796 Dec, [place] [address] [place] [address] 23948- 8133 Dec, Chronic pain G89.29 ; Sinusitis J32.9 ; Snoring R06.83 and Daytime hypersomnia G47.19 [place] [address] [place] [address] 72713- 3942 Nov, HSV (herpes simplex virus) infection B00.9 ; Encounter for Papanicolaou smear for cervical cancer screening Z12.4 ; Screening for STD sexually transmitted disease Z11.3 and Bartholin's gland cyst N75.0 [place] [address] 89635- 9396 Nov, [place] [address] 11844- 8284 Nov, [place] [address] 60541- 2936 Nov, Essential hypertension I10 ; Type 2 diabetes mellitus without complication E11.9 ; HSV (herpes simplex virus) infection B00.9 ; Spinal stenosis, lumbar region M48.06 and Vaginal yeast infection B37.3 [place] [address] [place] [address] 11322- 6339 Nov, [place] [id number] [place] [address] 98403- 6580 Nov, [place] [id number] [place] [address] 73892- 6769 Oct, [place] [address] 31879- 3188 Oct, HSV (herpes simplex virus) infection B00.9 ; Yeast infection B37.9 ; Change in bowel habit R19.4 ; Nausea & vomiting R11.2 and Gastroesophageal reflux disease without esophagitis K21.9 [place] [address] [place] [address] 21593- 9751 Oct, [place] [id number] [place] [address] 39009- 9513 Oct, Type 2 diabetes mellitus without complication E11.9 ; Essential hypertension I10 and Acute maxillary sinusitis, recurrence not specified J01.00 [place] [address] 90269- 5005 Oct, [place] [address] 28765- 0767 Oct, [address] 38058- 3744 Oct, Exposure to head lice Z20.7 ; Blood glucose abnormal R73.09 ; Boil of buttock L02.32 and Type 2 diabetes mellitus without complication E11.[address] 26400- 9267 Oct, [place] [address] 51876- 4732 Sep, [address] 53205- 3222 Sep, [address] 04140- 3767 Aug, Encounter for Depo-Provera contraception Z30.[address] 45356- 8023 Aug, Anxiety F41.9 ; Spinal stenosis, lumbar region M48.06 ; Radiculopathy of lumbar region M54.16 ; Asthma J45.909 ; GERD (gastroesophageal reflux disease) K21.9 ; Essential hypertension I10 and Long-term use of high- risk medication Z79.899 [place] [id number] [place] [address] 58403- 3128 Jul, [address] 97012- 9038 Jun, Hemorrhoid 455.6 [place] [id number] [place] [address] 37865- 0567 Jun, [place] [address] 738170- 2799 Jun, Anxiety 300.00 ; Asthma 493.90 ; Hyperhidrosis 705.21 ; Chest discomfort 786.59 and Upper respiratory infection 465.[address] 33547- 4781 May, Encounter for Depo-Provera contraception V25.[address] 11784- 9236 May, [address] 52739- 9115 May, [address] 81358- 2937 May, Spinal stenosis of lumbar region with radiculopathy 724.02 ; Bulging of intervertebral disc between L4 and L5 722.10 ; GERD ( gastroesophageal reflux disease) 530.81 ; Chronic pain 338.29 ; Declining mobility 799.89 and Epigastric pain 789.06 [place] [id number] [place] [address] 78007- 4555 Apr, [address] 56184- 1720 Apr, Nausea 787.02 and Heart burn 787.1 [place] [id number] [place] [address] 33880- 4047 Mar, Lumbago 724.2 ; Vitamin D deficiency 268.9 ; Anxiety 300.00 ; Allergic rhinitis 477.9 and Contraceptive surveillance V25.40 [place] [id number] [place] [address] 78532- 7240 February, 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 ; Chronic pain 338.29 and Vaginal discharge 623.5 [facility] [place] [facility] [address] [id number] [place] [address]- 3666 February, [facility] [place] [facility] [address] [id number] [place] [address]- 0764 February, [facility] [place] [facility] [address] [id number] [place] [address]- 3129 Jan, [facility] [place] [facility] [address] [id number] [address]- 8213 Jan, [facility] [place] [facility] [address] [id number] [place] [address] Dec, [facility] [place] [facility] [address] [id number] [place] [address] Dec, [facility] [place] [facility] [address] [facility] [id number] [place] [address] Dec, [facility] [place] [facility] [address] [id number], [place] [address] Dec, [facility] [place] [facility] [address] [id number] [place] [address] Dec, [facility] [place] [facility] [address] [facility] [id number], [place] [address] Dec, [facility] [place] [facility] [address] [id number], [place] [address] Dec, [facility] [place] [facility] [address] [id number], [place] [address] Dec, [facility] [place] [facility] [address] [id number], [place] [address] Dec, [facility] [place] [facility] [address] [id number], [place] [address] Dec, [facility] [place] [facility] [address] [facility] [id number], [place] [address] Dec, [facility] [place] [facility] [address] [id number] [place] [address] Dec, [facility] [place] [facility] [address] [facility] [id number] [place] [address] Nov, 2014 [facility] [place] [facility] [address] [facility] [id number] [place] [address] Nov, 2014 [facility] [place] [facility] [address] [facility] [id number] [place] [address] 24 Nov, 2014 [facility] [place] [facility] [address] [facility] [id number] [place] [address] 24 Nov, 2014 [facility] [place] [facility] [address] [facility] [id number] [place] [address] 23 Nov, 2014 [facility] [place] [facility] [address] [facility] [id number] [place] [address] 23 Nov, 2014 [facility] [place] [facility] [address] [id number] [place] [address] 16 Nov, 2014 [facility] [place] [facility] [address] N [facility] [id number] [place] [address] 16 Nov, 2014 [facility] [place] [facility] [address] [id number] [place] [address] 1247 13 Nov, 2014 [facility] [place] [facility] [address] [id number] [address] 13 Nov, 2014 [facility] [place] [facility] [address] [facility] [id number], [place] [address] 13 Nov, 2014 [facility] [place] [facility] [address] [facility] [id number] [place] [address] 9699 13 Nov, 2014 [facility] [place] [facility] [address] [facility] [id number] [place] [address]- 2466 13 Nov, 2014 [facility] [place] [facility] [address] [facility] [id number] [place] [address] 4320 13 Nov, 2014 [facility] [place] [facility] [address] [facility] [id number], [place] [address] Nov, 2014 [facility] [place] [facility] [address] [id number] [place] [address] 6316 Nov, 2014 [facility] [place] [facility] [address] [id number] [place] [address] 5857 Nov, 2014 [facility] [place] [facility] [address] [facility] [id number] [place] [address]- 7926 Nov, 2014 [facility] [place] [facility] [address] [id number] [place] [address]- 6648 Nov, 2014 [facility] [place] [facility] [address] [id number] [place] [address]- 7941 Nov, 2014 [facility] [place] [facility] [address] [facility] [id number] [place] [address]- 3009 Nov, 2014 [facility] [place] [facility] [address] [facility] [id number] [place] [address]- 2294 Nov, 2014 [facility] [place] [facility] [address] [facility] [id number] [place] [address]- 7229 Nov, [facility] [place] [facility] [address] [facility] [id number] [place] [address]- 3119 Oct, [facility] [place] [facility] [address] [facility] [id number] [place] [address] 3173 Oct, [facility] [place] [facility] [address] [facility] [id number] [place] [address]- 8802 Oct, [facility] [place] [facility] [address] [facility] [id number] [place] [address]- 4582 Oct, [facility] [place] [facility] [address] [id number] [place] [address]- 3652 Oct, [facility] [place] [facility] [address] [facility] [id number] [place] [address]- 7552 Oct, [facility] [place] [facility] [address] [facility] [id number] [place] [address]- 9164 Oct, [facility] [place] [facility] [address] [id number] [place] [address]- 8538 Oct, [facility] [place] [facility] [address] [id number] [place] [address]- 8922 Oct, [facility] [place] [facility] [address] [id number] [place] [address]- 0889 Oct, [facility] [place] [facility] [address] [id number] [place] [address]- 5327 Oct, [facility] [place] [facility] [address] [id number] [place] [address]- 8184 Oct, [facility] [place] [facility] [address] [id number] [place] [address]- 3584 Oct, [facility] [place] [facility] [address] [id number] [place] [address]- 4105 Oct, [facility] [place] [facility] [address] [id number] [place] [address]- 4612 Oct, [facility] [place] [facility] [address] [id number] [place] [address]- 0503 Oct, [facility] [place] [facility] [address] [id number] [place] [address]- 2799 Oct, [facility] [place] [facility] [address] [id number] [place] [address]- 5540 Oct, [facility] [place] [facility] [address] [id number], [place] [address] 6926 Oct, [facility] [place] [facility] [address] [id number] [place] [address]- 3938 Oct, [facility] [place] [facility] [address] [id number] [place] [address]- 5790 Oct, [facility] [place] [facility] [address] [id number] [place] [address]- 8545 Sep, [facility] [place] [facility] [address] [id number], [place] [address]- 6746 29 Sep, 2014 [facility] [place] [facility] [address] [id number] [place] [address]- 2148 18 Sep, 2014 [facility] [place] [facility] [address] [id number] [place] 9676 18 Sep, 2014 [facility] [place] [facility] [address] [id number] [place] [address]- 2376 17 Sep, 2014 [facility] [place] [facility] [address] [id number] [place] [address]- 8530 17 Sep, 2014 [facility] [place] [facility] [address] [id number] [place] [address]- 9404 15 Sep, 2014 [facility] [place] [facility] [address] [id number] [place] [address]- 9410 15 Sep, 2014 [facility] [place] [facility] [address] [id number] [place] [address]- 2544 12 Sep, 2014 [facility] [place] [facility] [address] [id number] [place] [address]- 1220 12 Sep, 2014 [facility] [place] [facility] [address] [id number] [place] [address]- 3897 11 Sep, 2014 [facility] [place] [facility] [address] [id number] [place] [address]- 5999 11 Sep, 2014 [facility] [place] [facility] [address] [id number] [place] [address]- 4084 Sep, [facility] [place] [facility] [address] [id number] [place] [address]- 3204 11 Sep, 2014 [facility] [place] [facility] [address] [id number] [place] [address]- 4122 11 Sep, 2014 [facility] [place] [facility] [address] [id number] [place] [address]- 1346 11 Sep, 2014 [facility] [place] [facility] [address] [id number] [place] [address]- 5577 10 Sep, 2014 [facility] [place] [facility] [address] [id number] [place] [address]- 5183 Sep, [facility] [place] [facility] [address] [id number] [place] [address]- 2775 Sep, [facility] [place] [facility] [address] [id number] [place] [address]- 1663 Sep, [facility] [place] [facility] [address] [id number] [place] [address]- 9011 Aug, [facility] [place] [facility] [address] [id number] [place] [address]- 0446 Aug, [facility] [place] [facility] [address] [id number] [place] [address]- 4089 Aug, [facility] [place] [facility] [address] [id number] [place] [address]- 2726 Aug, [facility] [place] [facility] [address] [id number] [place] [address]- 1042 Aug, [facility] [place] [facility] [address] [id number] [place] [address]- 4178 Aug, [facility] [place] [facility] [address] [id number] [place] [address]- 5630 Aug, [facility] [place] [facility] [address] [id number] [place] [address]- 4515 Aug, [facility] [place] [facility] [address] [id number] [place] [address]- 9642 Aug, [facility] [place] [facility] [address] [id number] [place] [address]- 9353 Jul, [facility] [place] [facility] [address] [id number] [place] [address]- 1762 Jul, [facility] [place] [facility] [address] [id number] [place] [address]- 5440 Jul, [facility] [place] [facility] [address] [id number] [place] [address]- 3703 Jul, [facility] [place] [facility] [address] [id number] [place] [address]- 0414 16 Jul, 2014 [facility] [place] [facility] [address] [id number] [place] [address]- 4881 16 Jul, 2014 [facility] [place] [facility] [address] [id number] [place] [address]- 4289 13 Jul, 2014 [facility] [place] [facility] [address] [id number] [place] [address]- 5718 13 Jul, 2014 [facility] [place] [facility] [address] [id number] [place] [address]- 8282 10 Jul, 2014 [facility] [place] [facility] [address] [id number] [place] [address]- 5377 10 Jul, 2014 [facility] [place] [facility] [address] [id number] [place] [address]- 1671 10 Jul, 2014 [facility] [place] [facility] [address] [id number] [place] [address]- 4434 10 Jul, 2014 [facility] [place] [facility] [address] [id number] [place] [address]- 2774 07 Jul, 2014 [facility] [place] [facility] [address] [id number], [place] [address]- 2380 07 Jul, 2014 [facility] [place] [facility] [address] [id number], [place] [address]- 1840 30 Jun, 2013 [facility] [place] [facility] [address] [id number], [place] [address]- 8966 30 Sep, 2013 [facility] [place] [facility] [address] [id number] [place] [address]- 1149 25 Jun, 2013 [facility] [place] [facility] [address] [id number], [place] [address]- 2246 25 Jun, 2013 [facility] [place] [facility] [address] [id number] [place] [address]- 2445 25 Jun, 2013 [facility] [place] [facility] [address] [id number] [place] [address]- 1535 25 Sep, 2013 [facility] [place] [facility] [address] [id number] [place] [address] 2546 24 Sep, 2013 [facility] [place] [facility] [address] [id number] [place] [address] 2546 24 Sep, 2013 [facility] [place] [facility] [address] [id number] [place] [address] 2546 22 Sep, 2013 [facility] [place] [facility] [address] [id number] [place] [address] 2541 22 Sep, 2013 [facility] [place] [facility] [address] [id number] [place] [address]- 9738 17 Sep, 2013 [facility] [place] [facility] [address] [id number] [place] [address]- 1894 17 Sep, 2013 [facility] [place] [facility] [address] [id number] [place] [address]- 8562 16 Sep, 2013 [facility] [place] [facility] [address] [id number] [place] [address]- 2541 16 Sep, 2013 [facility] [place] [facility] [address] [id number] [place] [address]- 4135 15 Sep, 2013 [facility] [place] [facility] [address] [id number] [place] [address]- 2545 15 Sep, 2013 [facility] [place] [facility] [address] [id number] [place] [address] 2548 12 Sep, 2013 [facility] [place] [facility] [address] [id number] [place] [address] 2540 12 Sep, 2013 [facility] [place] [facility] [address] [id number] [place] [address] 2546 11 Sep, 2013 [facility] [place] [facility] [address] [id number] [place] [address]- 2546 11 Sep, 2013 [facility] [place] [facility] [address] [id number] [place] [address]- 2541 11 Sep, 2013 [facility] [place] [facility] [address] [id number] [place] [address]- 7130 Jun, 2013 [facility] [place] [facility] [address] [id number] [place] [address]- 5775 Jun, [facility] [place] [facility] [address] [id number] [place] [address]- 1613 Jun, [facility] [place] [facility] [address] [id number] [place] [address]- 4459 Jun, [facility] [place] [facility] [address] [id number] [place] [address]- 8982 Jun, [facility] [place] [facility] [address] [id number] [place] [address]- 3978 May, [facility] [place] [facility] [address] [id number] [place] [address]- 3378 May, [facility] [place] [facility] [address] [id number] [place] [address]- 8614 May, [facility] [place] [facility] [address] [id number] [place] [address]- 3931 May, [facility] [place] [facility] [address] [id number] [place] [address]- 6882 May, [facility] [place] [facility] [address] [id number] [place] [address]- 4631 May, [facility] [place] [facility] [address] [id number] [place] [address]- 4077 May, [facility] [place] [facility] [address] [id number] [place] [address]- 9042 May, [facility] [place] [facility] [address] [id number] [place] [address]- 6213 May, [facility] [place] [facility] [address] [id number] [place] [address]- 5005 May, [facility] [place] [facility] [address] [id number] [place] [address]- 3882 May, [facility] [place] [facility] [address] [id number] [place] [address]- 9599 May, [facility] [place] [facility] [address] [id number] [place] [address]- 6399 May, [facility] [place] [facility] [address] [id number] [place] [address]- 6803 Apr, [facility] [place] [facility] [address] [id number] [place] [address]- 1246 Apr, [facility] [place] [facility] [address] [id number] [place] [address]- 9902 Apr, [facility] [place] [facility] [address] [id number] [place] [address]- 5103 Apr, [facility] [place] [facility] [address] [id number] [place] [address]- 4335 Apr, [facility] [place] [facility] [address] [id number] [place] [address]- 9813 Mar, [facility] [place] [facility] [address] [id number] [place] [address]- 4470 Mar, [facility] [place] [facility] [address] [id number] [place] [address]- 5868 Mar, [facility] [place] [facility] [address] [id number] [place] [address]- 9175 February, [facility] [place] [facility] [address] [id number] [place] [address]- 2179 February, [facility] [place] [facility] [address] [id number] [place] [address]- 7365 February, [facility] [place] [facility] [address] [id number] [place] [address]- 5410 February, [facility] [place] [facility] [address] [id number] [place] [address]- 1851 February, [facility] [place] [facility] [address] [id number] [place] [address]- 9709 February, [facility] [address] [id number] [place] [address]- 9784 February, [facility] [place] [facility] [address] [id number] [place] [address]- 9545 February, [facility] [place] [facility] [address] [id number] [place] [address]- 5003 February, [facility] [place] [facility] [address] [id number] [place] [address]- 1655 Jan, [facility] [place] [facility] [address] [id number] [place] [address]- 4942 Jan, [facility] [place] [facility] [address] [id number] [place] [address]- 3493 Jan, [facility] [place] [facility] [address] [id number] [place] [address]- 2282 Jan, [facility] [place] [facility] [address] [id number] [place] [address]- 8610 Jan, [facility] [place] [facility] [address] [id number] [place] [address]- 8291 Dec, [facility] [place] [facility] [address] [id number] [place] [address]- 3663 Dec, [facility] [place] [facility] [address] [id number] [place] [address]- 8007 Dec, [facility] [place] [facility] [address] [id number] [place] [address]- 4047 Dec, [facility] [place] [facility] [address] [id number] [place] [address]- 7235 Dec, [facility] [place] [facility] [address] [id number] [place] [address]- 0923 Nov, [facility] [place] [facility] [address] [id number] [place] [address]- 0527 Nov, [facility] [place] [facility] [address] [id number] [place] [address]- 2736 Nov, [facility] [place] [facility] [address] [id number] [place] [address]- 3501 Nov, [facility] [place] [facility] [address] [id number] [place] [address]- 7291 Oct, [facility] [place] [facility] [address] [id number] [place] [address]- 6772 Oct, [facility] [place] [facility] [address] [id number] [place] [address]- 4611 Oct, [facility] [place] [facility] [address] [id number] [place] [address]- 3020 Oct, [facility] [place] [facility] [address] [id number] [place] [address]- 4013 Oct, [facility] [place] [facility] [address] [id number] [place] [address]- 9020 Oct, [facility] [place] [facility] [address] [id number] [place] [address]- 4742 Oct, [facility] [place] [facility] [address] [id number] [place] [address]- 9203 Oct, [facility] [place] [facility] [address] [id number] [place] [address]- 9829 Oct, [facility] [place] [facility] [address] [id number], [place] [address]- 6640 Oct, [facility] [place] [facility] [address] [id number] [place] [address]- 6629 Aug, [facility] [place] [facility] [address] [id number] [place] [address]- 5750 Aug, [facility] [place] [facility] [address] [id number] [place] [address]- 9667 Jul, [facility] [place] [facility] [address] [id number] [place] [address]- 2147 Jul, [facility] [address] [id number] [place] [address]- 0735 Jul, [facility] [place] [facility] [address] [id number] [place] [address]- 0820 Jul, [facility] [place] [facility] [address] [id number] [place] [address]- 2711 Jul, [facility] [place] [facility] [address] [id number] [place] [address]- 7340 Jul, [facility] [place] [facility] [address] [id number] [place] [address]- 3911 Apr, [facility] [place] [facility] [address] [id number] [place] [address]- 2920 Dec, [facility] [place] [facility] [address] [id number] [place] [address]- 4015 Nov, [facility] [place] [facility] [address] [id number] [place] [address]- 1281 Nov, [facility] [place] [facility] [address] [id number] [place] [address]- 0784 Nov, [facility] [place] [facility] [address] [facility] [id number] [place] [address]- 4554 Oct, [facility] [place] [facility] [address] [id number] [place] [address]- 2433 Sep, [facility] [place] [facility] [address] [id number] [place] [address]- 0204 Sep, [facility] [place] [facility] [address] [id number] [place] [address]- 0437 Sep, [facility] [place] [facility] [address] [id number] [place] 6321 Sep, [facility] [place] [facility] [address] [id number] [place] [address]- 0384 Aug, [facility] [place] [facility] [address] [id number] [place] [address]- 2921 13 Aug, 2012 [facility] [place] [facility] [address] [id number] [place] [address]- 6763 Jul, [facility] [place] [facility] [address] [id number] [place] [address]- 2207 Jul, [facility] [place] [facility] [address] [id number] [place] [address]- 2422 28 Jun, 2012 [facility] [place] [facility] [address] [id number] [place] [address]- 1051 26 Jun, 2012 [facility] [place] [facility] [address] [id number] [place] [address]- 3208 24 Jun, 2012 [facility] [place] [facility] [address] [id number] [place] [address]- 0493 24 Jun, 2012 [facility] [place] [facility] [address] [id number] [place] [address]- 8705 Jun, [facility] [place] [facility] [address] [id number] [place] [address]- 6827 Apr, [facility] [place] [facility] [address] [id number] [place] [address]- 6840 Apr, [facility] [place] [facility] [address] [id number] [place] [address]- 0656 Apr, [facility] [place] [facility] [address] [id number] [place] [address]- 8571 Mar, [facility] [place] [facility] [address] [id number] [place] [address]- 4345 Mar, [facility] [place] [facility] [address] [id number] [place] [address]- 7447 Mar, [facility] [place] [facility] [address] [id number] [place] [address]- 2907 February, [facility] [place] [facility] [address] [id number], [place] [address]- 1328 18 Jan, 2012 [facility] [place] [facility] [address] [id number] [place] [address]- 2570 Dec, [facility] [place] [facility] [address] [id number] [place] [address]- 1100 21 Dec, 2011 [facility] [place] [facility] [address] [id number] [place] [address]- 7442 20 Dec, 2011 [facility] [place] [facility] [address] [id number] [place] [address] 19 Dec, 2011 [facility] [place] [facility] [address] [id number] [place] [address] Dec, [facility] [place] [facility] [address] [id number] [place] [address] 14 Nov, 2011 [facility] [place] [facility] [address] [facility] [id number] [place] [address] 13 Nov, 2011 [facility] [place] [facility] [address] [id number] [place] [address] Oct, [facility] [place] [facility] [address] [facility] [id number] [place] [address] Oct, [facility] [place] [facility] [address] [facility] [id number] [place] [address] Oct, [facility] [place] [facility] [address] [id number], [place] [address] Sep, [facility] [place] [facility] [address] [id number] [place] [address] Aug, [facility] [place] [facility] [address] [id number] [place] [address] 10 Aug, 2011 [facility] [place] [facility] [address] [facility] [id number] [place] [address] 28 Jul, 2011 [facility] [place] [facility] [address] [facility] [id number] [place] [address] 24 Jul, 2011 [facility] [place] [facility] [address] [id number] [place] [address] 19 Jul, 2011 [facility] [address] [id number] [place] [address] 13 Jan, 2011 [facility] [place] [facility] [address] [id number] [place] [address] 29 Sep, 2010 [facility] [place] [facility] [address] [id number] [place] [address]46 27 Sep, 2010 [facility] [place] [facility] [address] [id number] [place] [address] 20 Sep, 2010 [facility] [place] [facility] [address] [id number] [place] [address] 48[address] 20 Sep, 2010 [facility] [place] [facility] [address] [id number] [place] [address] 06 Sep, 2010 [facility] [place] [facility] [address] [id number] [place] [address] 16 Aug, 2010 [facility] [place] [facility] [address] [id number] [place] [address] 16 Aug, 2010 [facility] [place] [facility] [address] [id number] [place] [address] 08 Aug, 2010 [facility] [place] [facility] [address] [facility] [id number] [place] [address] 19 Jul, 2010 [facility] [place] [facility] [address] [id number] [place] [address] 19 Jul, 2010 [facility] [place] [facility] [address] [id number] [place] [address] 139[address] 12 Jul, 2010 [facility] [place] [facility] [address] [id number] [place] [address] 11 May, 2010 [facility] [place] [facility] [address] [id number] [place] [address] 2546 13 Apr, 2010 [facility] [place] [facility] [address] [id number] [place] [address] Dec, [facility] [address] [facility] [id number], [place] [address] Sep, [facility] [address] [id number], [place] [address] Sep, [facility] [address] [id number], [place] [address] Aug, [facility] [id number], [place] [address] Aug, [facility] [address] [id number], [place] [address] Jul, [facility] [address] [id number], [place] [address] Mar, IMMUNIZATIONS No Known Immunizations SOCIAL HISTORY Never Assessed REASON FOR VISIT Medication refill request PLAN OF CARE VITAL SIGNS MEDICATIONS Medication Instructions Dosage Frequency Start Date End Date Duration Status Mometasone Furoate 50 MCG/ACT Nasally Once a day 2 sprays in each nostril 24h Jun, 30 day(s) Active RESULTS No Results PROCEDURES No [...] Hospitalization History Surgery(s) only Hospitalization History [facility] and transferred to [place]-sepsis/ARF 2016
--- OUTSIDE RECORDS SUMMARY | 2018-10-08 20:24 | XMS REPORT ---
Author Author ART JONES Organization [facility] Address [address] [place] [address] Care Team Providers Care [employer] Sorting Machine Feeder Name Role Phone ART JONES Unavailable PROBLEMS Type Condition ICD9-CM Code PYW12-ZO Code Onset Dates Condition Status SNOMED Code Problem HSV (herpes simplex virus) infection B00.9 Active 06014051 Problem Edema of both feet R60.0 Active 716158857 Problem Tobacco abuse Z72.0 Active 99456015 Problem Generalized anxiety disorder F41.1 Active 08417622 Problem Chronic pain disorder G89.4 Active 299646397 Problem Chronic migraine G43.709 Active 27174219 Problem Mixed hyperlipidemia E78.2 Active 336689381 Problem Type 2 diabetes mellitus with diabetic neuropathy, unspecified E11.40 Active 03774557 Problem 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.4 Active 792362735 Problem Anxiety F41.9 Active 52996367 Problem Radiculopathy of lumbar region M54.16 Active 013978581 Problem Bulging lumbar disc M51.26 Active 519904784 Problem Essential hypertension I10 Active 39000953 Problem Asthma J45.909 Active 254202496 Problem Chronic pain G89.29 Active 12393908 Problem Spinal stenosis, lumbar region M48.06 Active 86234945 Problem Gastroesophageal reflux disease without esophagitis K21.9 Active 464514963 ALLERGIES Substance Reaction Event Type Date Status Prozac severe nightmares Drug Allergy Jun, Active Levaquin Unknown Drug Allergy Jun, Active Diclofenac Sodium rash Drug Allergy Jun, Active ChloraPrep One Step Unknown Drug Allergy Jun, Active Quinolones Unknown Non Drug Allergy Jun, Active ENCOUNTERS Encounter Location Date Diagnosis [facility] [address] [facility] [id number] [address] Jul, [facility] [address] [facility] [id number] [address] Jun, Chronic migraine G43.709 [facility] [id number] [place] [address] 97489- 7686 Jun, [facility] [id number] [place] [address] 90719- 0714 Jun, [facility] [id number] [place] [address] 56831- 3525 Jun, [facility] [address] 03367- 7844 06 Jun, 2018 Asthma J45.909 [facility] [address] 22177- 5542 04 Jun, 2018 Type 2 diabetes mellitus with diabetic neuropathy, unspecified E11.40 ; Chronic pain disorder G89.4 and Generalized anxiety disorder F41.1 [place] [address] 89739- 1114 May, Chronic pain G89.29 and Anxiety F41.9 [facility] [id number] [place] [address] 68584- 2366 May, [place] [id number] [place] [address] 80424- 3697 May, Encounter for Depo-Provera contraception Z30.42 [place] [id number] [place] [address] 52810- 3382 May, [facility] [id number] [place] [address] 67079- 5224 Apr, Chronic pain G89.29 [facility] [id number] [place] [address] 99547- 4495 Apr, Chronic pain G89.29 and Anxiety F41.9 [facility] [id number] [place] [address] 96700- 9471 Mar, HSV (herpes simplex virus) infection B00.9 ; Anxiety F41.9 and Chronic pain G89.29 [place] [id number] [place] [address] 75628- 6604 Mar, [place] [address] 99458- 8901 Mar, Chronic pain G89.29 [place] [address] 69579- 3699 February, Chronic pain G89.29 [place] [address] 90987- 2192 Jan, Chronic pain G89.29 [place] [address] 165790- 8408 Jan, 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 [place] [address] 18743- 3842 Jan, Encounter for Depo-Provera contraception Z30.42 [place] [address] 53227- 0984 Jan, [place] [address] 00625- 9780 Jan, Chronic pain G89.29 and Anxiety F41.9 [place] [id number] [place] [address] 86846- 0747 Jan, [place] [id number] [place] [address] 65095- 5443 Dec, [place] [id number] [place] [address] 69443- 2853 Dec, Gastroesophageal reflux disease without esophagitis K21.9 and Anxiety F41.9 [place] [id number] [place] [address] 64891- 1723 Dec, Essential hypertension I10 ; Mixed hyperlipidemia E78.2 ; Type 2 diabetes mellitus with diabetic neuropathy, unspecified E11.40 ; 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.4 ; Chronic pain G89.29 ; HSV (herpes simplex virus) infection B00.9 ; Anxiety F41.9 and Gastroesophageal reflux disease without esophagitis K21.9 [place] [address] 24183- 7921 Dec, Chronic pain G89.29 and Chronic migraine G43.709 [place] [address] 46374- 6717 Nov, [place] [address] 10149- 1362 Nov, Essential hypertension I10 and Chronic pain G89.[address] 06985- 8557 Nov, Chronic pain G89.29 ; Essential hypertension I10 and Type 2 diabetes mellitus without complication E11.9 [place] [address] 80308- 7029 Oct, Chronic pain G89.29 [place] [address] 94576- 2854 Oct, [place] [address] 54922- 9915 Sep, Type 2 diabetes mellitus without complication E11.9 ; Essential hypertension I10 ; retirement (current) use of insulin Z79.4 ; Chronic migraine G43.709 ; Chronic pain G89.29 and Acute non-recurrent maxillary sinusitis J01.00 [place] [address] 66641- 9745 Sep, Encounter for Depo-Provera contraception Z30.42 [place] [address] 57888- 3740 Sep, Chronic pain G89.29 and Radiculopathy of lumbar region M54.16 [place] [address] 53183- 2462 Sep, [place] [address] 03351- 0274 Sep, [facility] [address] [address] 7679 Aug, Type 2 diabetes mellitus without complication E11.9 [facility] [address] [address]- 2096 Aug, [facility] [address] [id number] [address] 3995 Aug, Radiculopathy of lumbar region M54.16 and Chronic pain G89.29 [facility] [address], [place] [address]- 2213 Aug, Type 2 diabetes mellitus without complication E11.9 [facility] [address] [address]- 4706 Aug, Type 2 diabetes mellitus without complication E11.9 [facility] [id number] [address]- 0315 Jul, Type 2 diabetes mellitus without complication E11.9 [facility] [address], [place] [address]- 6061 Jul, [facility] [id number] [place] [address] 91738- 6884 Jul, Chronic pain G89.29 [facility] [address], [place] [address]- 5324 Jul, [facility] [id number] [address]- 8780 Jul, [facility] [address], [place] [address]- 4790 Jul, Type 2 diabetes mellitus without complication E11.9 [facility] [address], [place] [address]- 3829 Jul, [facility] [address], [place] [address]- 0649 Jul, Type 2 diabetes mellitus without complication E11.9 [facility] [id number] [place] [address] 28433- 5051 Jul, [facility] [id number] [place] [address] 28219- 7986 Jul, [facility] [id number] [place] [address] 24611- 9613 Jul, [facility] [id number] [place] [address] 98385- 8999 Jun, Type 2 diabetes mellitus without complication E11.9 [place] [id number] [place] [address] 98692- 0406 26 Jun, 2017 Chronic migraine G43.709 ; Type 2 diabetes mellitus without complication E11.9 ; Calculus of right kidney N20.0 ; Yeast dermatitis B37.2 and HSV (herpes simplex virus) infection B00.9 [place] [id number] [place] [address] 74887- 4406 Jun, Type 2 diabetes mellitus without complication E11.9 [place] [id number] [place] [address] 91811- 9090 Jun, [place] [id number] [place] [address] 89175- 9963 Jun, Radiculopathy of lumbar region M54.16 and Chronic pain G89.29 [place] [id number] [place] [address] 50055- 7628 Jun, Encounter for Depo-Provera contraception Z30.42 [place] [id number] [place] [address] 52839- 0495 Jun, Type 2 diabetes mellitus without complication E11.9 [place] [id number] [place] [address] 28804- 4551 Jun, [facility] [id number] [place] [address] 97142 -2754 May, Acute nasopharyngitis (common cold) J00 [place] [id number] [place] [address] 50994- 3765 May, Chronic pain G89.29 [place] [address] 68927- 5837 May, Headache following lumbar puncture G97.1 [place] [address] 53088- 5392 May, Radiculopathy of lumbar region M54.16 [place] [address] 41161- 1999 Apr, [place] [address] 62167- 1567 Apr, Type 2 diabetes mellitus without complication E11.9 ; Chronic pain G89.29 ; Essential hypertension I10 ; Radiculopathy of lumbar region M54.16 ; Spinal stenosis, lumbar region M48.06 ; Gastroesophageal reflux disease without esophagitis K21.9 ; HSV (herpes simplex virus) infection B00.9 ; Mixed hyperlipidemia E78.2 ; Anxiety F41.9 and Asthma J45.909 [place] [address] 11917- 6331 Apr, Encounter for Depo-Provera contraception Z30.42 [place] [id number] [place] [address] 65926- 8393 Apr, Chronic pain G89.29 and Anxiety F41.9 [place] [id number] [place] [address] 98883- 8456 Mar, [place] [address] 08036- 1372 Mar, [place] [address] 62755- 6809 Mar, Mixed hyperlipidemia E78.2 [place] [address] 00061- 3767 Mar, Type 2 diabetes mellitus without complication E11.9 ; Chronic pain G89.29 ; Essential hypertension I10 ; Radiculopathy of lumbar region M54.16 ; Spinal stenosis, lumbar region M48.06 ; Gastroesophageal reflux disease without esophagitis K21.9 ; HSV (herpes simplex virus) infection B00.9 ; Mixed hyperlipidemia E78.2 and Anxiety F41.9 [place] [id number] [place] [address] 68716- 6579 Mar, [facility] [id number] [place] [address] 94559- 7722 Mar, [place] [id number] [place] [address] 60181- 7794 Mar, [place] [id number] [place] [address] 63652- 8836 February, Chronic pain G89.29 [place] [id number] [place] [address] 93584- 1409 February, [facility] [id number] [place] [address] 75559- 9527 Jan, Chronic pain G89.29 [facility] [id number] [place] [address] 25052- 3407 Jan, Type 2 diabetes mellitus without complication E11.9 [place] [id number] [place] [address] 39976- 3851 Jan, [facility] [id number] [place] [address] 82058- 3898 Jan, [facility] [id number] [place] [address] 65861- 7068 Jan, [place] [id number] [place] [address] 13680- 2528 Jan, Type 2 diabetes mellitus without complication [...] J01.00 and Encounter for Depo-Provera contraception Z30.42 [place] [id number] [place] [address] 98226- 7066 Dec, Chronic pain G89.29 [place] [id number] [place] [address] 19806- 9685 Dec, Abnormal ankle brachial index (BERNARDINO) R68.89 [place] [address] 82853- 8335 Dec, [place] [id number] [place] [address] 93266- 5643 Dec, Routine gynecological examination Z01.419 ; Chronic [...] virus) infection B00.9 and Allergic rhinitis 477.9 [place] [id number] [place] [address] 62148- 0240 Nov, Chronic pain G89.29 [place] [id number] [place] [address] 94920- 5228 02 Nov, 2016 Chronic pain G89.29 ; [...] mucoid otitis media of both ears H65.113 [place] [id number] [place] [address] 25533- 2091 Oct, [place] [id number] [place] [address] 75155- 2580 Oct, Chronic pain G89.29 [place] [id number] [place] [address] 93940- 8456 Oct, Chronic pain G89.29 [place] [id number] [place] [address] 80620- 1115 Sep, Chronic pain G89.29 ; Type 2 diabetes mellitus without complication E11.9 ; Essential hypertension I10 ; Radiculopathy of lumbar region M54.16 ; Spinal stenosis, lumbar region M48.06 ; Gastroesophageal reflux disease without esophagitis K21.9 ; Encounter for surveillance of injectable contraceptive Z30.42 ; Bilateral cold feet R20.9 ; Pain of left foot M79.672 and Pain in right foot M79.671 [place] [id number] [place] [address] 98801- 3261 Sep, [place] [id number] [place] [address] 20588- 2084 Aug, [place] [id number] [place] [address] 36841- 9237 Aug, [place] [id number] [place] [address] 13049- 6249 Aug, Chronic pain G89.29 ; Type 2 diabetes mellitus without complication E11.9 ; Essential hypertension I10 ; Rash and nonspecific skin eruption R21 and Upper respiratory infection, acute J06.9 [place] [id number] [place] [address] 28327- 2324 08 Aug, 2016 [place] [id number] [place] [address] 12884- 9136 04 Aug, 2016 [place] [id number] [place] [address] 70277- 7382 Jul, [facility] [id number] [place] [address] 28368- 3174 Jul, Dysuria R30.0 ; Encounter for Depo-Provera contraception Z30.42 ; Herpes simplex B00.9 ; Nausea & vomiting R11.2 and Asthma J45.909 [facility] [id number] [place] [address] 95729- 4690 Jun, Dysuria R30.0 [facility] [address] 26386- 9541 19 Jun, 2016 Dysuria R30.0 [facility] [address] 24975- 0763 15 Jun, 2016 [facility] [address] 56581- 2756 13 Jun, 2016 [facility] [address] 63979- 7065 May, [facility] [address] 39552- 4753 May, [facility] [address] 67290- 7298 May, Chronic pain G89.29 ; Essential hypertension I10 ; Type 2 diabetes mellitus without complication E11.9 ; Edema of both feet R60.0 and Rash and nonspecific skin eruption R21 [facility] [id number] [place] [address] 78059- 6308 Apr, [facility] [address] 05485- 7748 Mar, Carpal tunnel syndrome, left upper limb G56.02 and Carpal tunnel syndrome, right upper limb G56.01 [facility] [id number] [place] [address] 79985- 0293 Mar, [facility] [address] 87249- 2345 Mar, Encounter for Depo-Provera contraception Z30.42 [place] [id number] [place] [address] 97639- 1667 February, [place] [address] 70509- 2194 February, [place] [address] 23372- 6187 February, Chronic pain G89.29 ; Essential hypertension I10 ; Type 2 diabetes mellitus without complication E11.9 ; HSV (herpes simplex virus) infection B00.9 ; Anxiety F41.9 ; Hypersomnia G47.10 ; Tobacco abuse Z72.0 ; Hand pain, left M79.642 ; Hand pain, right M79.641 ; Left foot pain M79.672 and Heart palpitations R00.2 [place] [address] 01780- 0689 Jan, [place] [address] 40902- 7141 Jan, [place] [address] 59932- 3035 Jan, [place] [id number] [place] [address] 74818- 3889 Jan, [place] [id number] [place] [address] 40411- 0022 Jan, Upper respiratory infection J06.9 and Type 2 diabetes mellitus without complication E11.9 [place] [id number] [place] [address] 28345- 3372 Dec, [place] [address] 78551- 6297 Dec, Chronic pain G89.29 ; Essential hypertension I10 ; Type 2 diabetes mellitus without complication E11.9 ; HSV (herpes simplex virus) infection B00.9 ; Anxiety F41.9 ; Upper respiratory infection J06.9 ; Hypersomnia G47.10 and Tobacco abuse Z72.0 [place] [id number] [place] [address] 63288- 4039 Dec, Encounter for Depo-Provera contraception Z30.42 [place] [address] 91331- 5501 Dec, [place] [address] 45400- 0357 Dec, Chronic pain G89.29 ; Sinusitis J32.9 ; Snoring R06.83 and Daytime hypersomnia G47.19 [place] [address] 66415- 4633 Nov, HSV (herpes simplex virus) infection B00.9 ; Encounter for Papanicolaou smear for cervical cancer screening Z12.4 ; Screening for STD sexually transmitted disease Z11.3 and Bartholin's gland cyst N75.0 [place] [address] 28348- 0370 Nov, [place] [address] 21718- 2627 Nov, [place] [id number] [place] [address] 85958- 1425 Nov, Essential hypertension I10 ; Type 2 diabetes mellitus without complication E11.9 ; HSV (herpes simplex virus) infection B00.9 ; Spinal stenosis, lumbar region M48.06 and Vaginal yeast infection B37.3 [place] [id number] [place] [address] 48920- 4866 Nov, [place] [address] 21533- 7157 Nov, [place] [id number] [place] [address] 88963- 4707 Oct, [place] [address] 08645- 0255 Oct, HSV (herpes simplex virus) infection B00.9 ; Yeast infection B37.9 ; Change in bowel habit R19.4 ; Nausea & vomiting R11.2 and Gastroesophageal reflux disease without esophagitis K21.9 [place] [address] 06628- 2031 Oct, [place] [address] 78726- 5485 Oct, Type 2 diabetes mellitus without complication E11.9 ; Essential hypertension I10 and Acute maxillary sinusitis, recurrence not specified J01.00 [place] [address] 71632- 6055 Oct, [address] 37687- 4441 Oct, [address] 75050- 7331 Oct, Exposure to head lice Z20.7 ; Blood glucose abnormal R73.09 ; Boil of buttock L02.32 and Type 2 diabetes mellitus without complication E11.9 [place] [address] 62993- 8981 Oct, [place] [address] 13190- 8719 Sep, [address] 71177- 3585 Sep, [address] 43917- 1746 Aug, Encounter for Depo-Provera contraception Z30.[address] 05732- 4902 Aug, Anxiety F41.9 ; Spinal stenosis, lumbar region M48.06 ; Radiculopathy of lumbar region M54.16 ; Asthma J45.909 ; GERD (gastroesophageal reflux disease) K21.9 ; Essential hypertension I10 and Long-term use of high- risk medication Z79.899 [place] [id number] [place] [address] 40460- 1096 Jul, [place] [address] 10351- 5309 Jun, Hemorrhoid 455.[address] 93120- 5462 Jun, [place] [address] 89020- 8087 Jun, Anxiety 300.00 ; Asthma 493.90 ; Hyperhidrosis 705.21 ; Chest discomfort 786.59 and Upper respiratory infection 465.[address] 03354- 4075 May, Encounter for Depo-Provera contraception V25.[address] 65356- 5485 May, [address] 11553- 7917 May, [address] 79738- 8160 May, Spinal stenosis of lumbar region with radiculopathy 724.02 ; Bulging of intervertebral disc between L4 and L5 722.10 ; GERD ( gastroesophageal reflux disease) 530.81 ; Chronic pain 338.29 ; Declining mobility 799.89 and Epigastric pain 789.06 [place] [id number] [place] [address] 94257- 3639 Apr, [address] 99198- 9645 Apr, Nausea 787.02 and Heart burn 787.[address] 55004- 0336 Mar, Lumbago 724.2 ; Vitamin D deficiency 268.9 ; Anxiety 300.00 ; Allergic rhinitis 477.9 and Contraceptive surveillance V25.40 [facility] [address], [place] [address]- 3791 February, 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 ; Chronic pain 338.29 and Vaginal discharge 623.5 [facility] [address], [place] [address]- 2916 February, [facility] [address] [facility] [id number] [place] [address] 94266- 7606 February, [facility] [address] [facility] [id number] [address]- 0615 Jan, [facility] [id number] [place] [address] 25749- 6000 Jan, [facility] [id number] [place] [address] 45581- 6946 Dec, [facility] [id number] [place] [address] 74036- 6974 Dec, [facility] [address], [place] [address]- 1474 Dec, [facility] [address], [place] [address]- 3921 Dec, [facility] [address], [place] [address]- 5974 Dec, [facility] [address], [place] [address]- 2776 Dec, [facility] [address], [place] [address]- 8633 Dec, [facility] [id number] [address]- 9591 Dec, [facility] [address], [place] [address]- 9073 Dec, [facility] [id number] [place] [address], [place] [address] Dec, [facility] [place] [facility] [address] [id number] [place] [address] Dec, [facility] [place] [facility] [address] [id number] [place] [address] Dec, 2014 [facility] [place] [facility] [address] [facility] [id number] [place] [address] Nov, 2014 [facility] [place] [facility] [address] [id number] [place] [address] Nov, 2014 [facility] [place] [facility] [address] [id number] [place] [address] 24 Nov, 2014 [facility] [place] [facility] [address] [facility] [id number] [place] [address] 24 Nov, 2014 [facility] [place] [facility] [address] [facility] [id number] [place] [address] 23 Nov, 2014 [facility] [place] [facility] [address] [facility] [id number] [place] [address] 23 Nov, 2014 [facility] [place] [facility] [address] [facility] [id number] [place] [address] 16 Nov, 2014 [facility] [place] [facility] [address] [facility] [id number] [place] [address] 16 Nov, 2014 [facility] [place] [facility] [address] [facility] [id number] [place] [address] 13 Nov, 2014 [facility] [place] [facility] [address] [id number] [place] [address] 9887 13 Nov, 2014 [facility] [place] [facility] [address] [id number] [place] [address] 9387 13 Nov, 2014 [facility] [place] [facility] [address] [facility] [id number] [place] [address]- 1846 13 Nov, 2014 [facility] [place] [facility] [address] [facility] [id number] [place] [address]- 8934 Nov, 2014 [facility] [place] [facility] [address] [id number] [place] [address] 4176 Nov, 2014 [facility] [place] [facility] [address] [id number] [place] [address]- 8656 Nov, 2014 [facility] [place] [facility] [address] [id number] [place] [address]- 9716 Nov, 2014 [facility] [place] [facility] [address] [id number] [place] [address]- 4387 Nov, 2014 [facility] [place] [facility] [address] [id number] [place] [address]- 6062 Nov, 2014 [facility] [place] [facility] [address] [id number] [place] [address]- 4739 Nov, 2014 [facility] [place] [facility] [address] [facility] [id number] [place] [address]- 9632 Nov, 2014 [facility] [place] [facility] [address] [facility] [id number] [place] [address]- 0726 Nov, 2014 [facility] [place] [facility] [address] [facility] [id number] [place] [address]- 6147 Nov, 2014 [facility] [place] [facility] [address] [facility] [id number] [place] [address]- 4294 Nov, [facility] [place] [facility] [address] [facility] [id number] [place] [address]- 5411 Oct, [facility] [place] [facility] [address] [facility] [id number] [place] [address]- 5258 Oct, [facility] [place] [facility] [address] [id number] [place] [address]- 5965 Oct, [facility] [place] [facility] [address] [facility] [id number] [place] [address]- 9726 Oct, [facility] [place] [facility] [address] [facility] [id number] [place] [address]- 8792 Oct, [facility] [place] [facility] [address] [id number] [place] [address]- 6315 Oct, [facility] [place] [facility] [address] [id number] [place] [address]- 4951 Oct, [facility] [place] [facility] [address] [id number] [place] [address]- 3674 Oct, [facility] [place] [facility] [address] [id number] [place] [address]- 8513 Oct, [facility] [place] [facility] [address] [id number] [place] [address]- 0712 Oct, [facility] [place] [facility] [address] [id number] [place] [address]- 2206 Oct, [facility] [place] [facility] [address] [id number] [place] [address]- 9422 Oct, [facility] [place] [facility] [address] [id number] [place] [address]- 6687 Oct, [facility] [place] [facility] [address] [id number] [place] [address]- 7372 Oct, [facility] [place] [facility] [address] [id number] [place] [address]- 3625 Oct, [facility] [place] [facility] [address] [id number] [place] [address]- 2314 Oct, [facility] [place] [facility] [address] [id number] [place] [address]- 8646 Oct, [facility] [place] [facility] [address] [id number] [place] [address]- 8373 Oct, [facility] [place] [facility] [address] [id number] [place] [address]- 9576 Oct, [facility] [place] [facility] [address] [id number] [place] [address]- 6055 Oct, [facility] [place] [facility] [address] [id number] [place] [address]- 4774 Oct, [facility] [place] [facility] [address] [id number] [place] [address]- 7045 29 Sep, 2014 [facility] [place] [facility] [address] [id number] [place] [address]- 0056 29 Sep, 2014 [facility] [place] [facility] [address] [id number] [place] [address]- 1942 18 Sep, 2014 [facility] [place] [facility] [address] [id number] [place] [address]- 9808 18 Sep, 2014 [facility] [place] [facility] [address] [id number] [place] [address]- 3040 17 Sep, 2014 [facility] [place] [facility] [address] [id number] [place] [address]- 5259 17 Sep, 2014 [facility] [place] [facility] [address] [id number] [place] [address]- 7952 15 Sep, 2014 [facility] [place] [facility] [address] [id number] [place] [address]- 7906 15 Sep, 2014 [facility] [place] [facility] [address] [id number] [place] [address]- 2203 12 Sep, 2014 [facility] [place] [facility] [address] [id number] [place] [address]- 5993 Sep, [facility] [place] [facility] [address] [id number] [place] [address]- 4790 Sep, [facility] [place] [facility] [address] [id number] [place] [address]- 5542 11 Sep, 2014 [facility] [place] [facility] [address] [id number] [place] [address]- 1857 Sep, [facility] [place] [facility] [address] [id number] [place] [address]- 8739 Sep, [facility] [place] [facility] [address] [id number] [place] [address]- 4975 Sep, [facility] [place] [facility] [address] [id number] [place] [address]- 4863 Sep, [facility] [place] [facility] [address] [id number] [place] [address]- 3246 Sep, [facility] [place] [facility] [address] [id number] [place] [address]- 5223 Sep, [facility] [place] [facility] [address] [id number] [place] [address]- 3287 Sep, [facility] [place] [facility] [address] [id number] [place] [address]- 4954 Sep, [facility] [place] [facility] [address] [id number] [place] [address]- 1561 Aug, [facility] [place] [facility] [address] [id number] [place] [address]- 0958 Aug, [facility] [place] [facility] [address] [id number] [place] [address]- 8954 Aug, [facility] [place] [facility] [address] [id number] [place] [address]- 1933 Aug, [facility] [place] [facility] [address] [id number] [place] [address]- 3583 Aug, [facility] [place] [facility] [address] [id number] [place] [address]- 0595 Aug, [facility] [place] [facility] [address] [id number] [place] [address]- 6171 Aug, [facility] [place] [facility] [address] [id number] [place] [address]- 6481 Aug, [facility] [place] [facility] [address] [id number] [place] [address]- 9149 Aug, [facility] [place] [facility] [address] [id number] [place] [address]- 4800 Jul, [facility] [place] [facility] [address] [id number] [place] [address]- 5294 Jul, [facility] [place] [facility] [address] [id number] [place] [address]- 2840 Jul, [facility] [place] [facility] [address] [id number] [place] [address]- 4503 Jul, [facility] [place] [facility] [address] [id number] [place] [address]- 4512 16 Jul, 2014 [facility] [place] [facility] [address] [id number] [place] [address]- 9347 16 Jul, 2014 [facility] [place] [facility] [address] [id number] [place] [address]- 3071 Jul, [facility] [place] [facility] [address] [id number] [place] [address]- 1647 Jul, [facility] [place] [facility] [address] [id number] [place] [address]- 2236 10 Jul, 2014 [facility] [place] [facility] [address] [id number] [place] [address]- 1174 Jul, [facility] [place] [facility] [address] [id number] [place] [address]- 8858 Jul, [facility] [place] [facility] [address] [id number] [place] [address]- 9464 Jul, [facility] [place] [facility] [address] [id number] [place] [address]- 7720 Jul, [facility] [place] [facility] [address] [id number] [address]- 6660 Jul, [facility] [place] [facility] [address] [id number] [place] [address]- 7500 30 Jun, 2014 [facility] [place] [facility] [address] [id number] [place] [address]- 2261 30 Jun, 2014 [facility] [place] [facility] [address] [id number] [place] [address]- 8449 25 Jun, 2013 [facility] [place] [facility] [address] [id number] [place] [address]- 9697 25 Sep, 2013 [facility] [place] [facility] [address] [id number] [place] [address] 2546 25 Sep, 2013 [facility] [place] [facility] [address] [id number] [place] [address] 2546 25 Sep, 2013 [facility] [place] [facility] [address] [id number] [place] [address] 2546 24 Sep, 2013 [facility] [place] [facility] [address] [id number] [place] [address]- 2544 24 Sep, 2013 [facility] [place] [facility] [address] [id number] [place] [address]- 6060 22 Sep, 2013 [facility] [place] [facility] [address] [id number] [place] [address]- 3384 22 Sep, 2013 [facility] [place] [facility] [address] [id number] [place] [address]- 3630 17 Sep, 2013 [facility] [place] [facility] [address] [id number] [place] [address]- 5916 17 Sep, 2013 [facility] [place] [facility] [address] [id number] [place] [address]- 1254 16 Sep, 2013 [facility] [place] [facility] [address] [id number] [place] [address]- 2059 16 Sep, 2013 [facility] [place] [facility] [address] [id number] [place] [address] 2543 15 Sep, 2013 [facility] [place] [facility] [address] [id number] [address]- 2548 15 Sep, 2013 [facility] [place] [facility] [address] [id number] [place] [address] 2540 12 Sep, 2013 [facility] [place] [facility] [address] [id number] [place] [address]- 2548 12 Sep, 2013 [facility] [place] [facility] [address] [id number] [place] [address]- 5263 11 Sep, 2013 [facility] [place] [facility] [address] [id number] [place] [address]- 4137 11 Jun, 2013 [facility] [place] [facility] [address] [id number] [place] [address]- 1286 Jun, 2013 [facility] [place] [facility] [address] [id number] [place] [address]- 2546 Jun, 2013 [facility] [place] [facility] [address] [id number] [place] [address] 2545 Jun, 2013 [facility] [place] [facility] [address] [id number] [place] [address] 2548 Jun, 2013 [facility] [place] [facility] [address] [id number] [place] [address]- 7325 Jun, 2013 [facility] [place] [facility] [address] [id number] [place] [address]- 4805 Jun, 2013 [facility] [place] [facility] [address] [id number] [place] [address]- 5906 May, [facility] [place] [facility] [address] [id number] [place] [address]- 7015 May, [facility] [place] [facility] [address] [id number] [place] [address]- 8311 May, [facility] [place] [facility] [address] [id number] [place] [address]- 8571 May, [facility] [place] [facility] [address] [id number] [place] [address]- 6528 May, [facility] [place] [facility] [address] [id number] [place] [address]- 3580 May, [facility] [place] [facility] [address] [id number] [place] [address]- 2548 May, [facility] [place] [facility] [address] [id number] [place] [address]- 2540 May, [facility] [place] [facility] [address] [id number] [place] [address]- 2540 May, [facility] [place] [facility] [address] [id number] [place] [address]- 6177 May, [facility] [place] [facility] [address] [id number] [place] [address]- 6161 May, [facility] [place] [facility] [address] [id number] [place] [address]- 9134 May, [facility] [place] [facility] [address] [id number] [place] [address]- 9109 May, [facility] [place] [facility] [address] [id number] [place] [address]- 0411 Apr, [facility] [place] [facility] [address] [id number] [place] [address]- 2470 Apr, [facility] [place] [facility] [address] [id number] [place] [address]- 0988 Apr, [facility] [place] [facility] [address] [id number] [place] [address]- 0776 Apr, [facility] [place] [facility] [address] [id number] [place] [address]- 5504 Apr, [facility] [place] [facility] [address] [id number] [place] [address]- 5359 Mar, [facility] [place] [facility] [address] [id number] [place] [address]- 5594 Mar, [facility] [place] [facility] [address] [id number] [place] [address]- 8659 Mar, [facility] [place] [facility] [address] [id number] [place] [address]- 7648 February, [facility] [place] [facility] [address] [id number] [place] [address]- 0354 February, [facility] [place] [facility] [address] [id number] [place] [address]- 6742 February, [facility] [place] [facility] [address] [id number] [place] [address]- 0262 February, [facility] [place] [facility] [address] [id number] [place] [address]- 6110 February, [facility] [place] [facility] [address] [id number] [place] [address]- 2913 February, [facility] [place] [facility] [address] [id number] [place]804 February, [facility] [place] [facility] [address] [id number] [place] [address]- 4064 February, [facility] [place] [facility] [address] [id number] [place] [address]- 5421 February, [facility] [place] [facility] [address] [id number] [place] [address]- 6458 Jan, [facility] [place] [facility] [address] [id number] [place] [address]- 2009 Jan, [facility] [place] [facility] [address] [id number] [place] [address]- 5294 Jan, [facility] [place] [facility] [address] [id number] [place] [address]- 7793 Jan, [facility] [place] [facility] [address] [id number] [place] [address]- 7293 Jan, [facility] [place] [facility] [address] [id number] [place] [address]- 8072 Dec, [facility] [place] [facility] [address] [id number] [place] [address]- 6049 Dec, [facility] [place] [facility] [address] [id number] [place] [address]- 3679 Dec, [facility] [place] [facility] [address] [id number] [place] [address]- 1279 Dec, [facility] [place] [facility] [address] [id number] [place] [address]- 0166 Dec, [facility] [place] [facility] [address] [id number] [place] [address]- 8326 Nov, [facility] [place] [facility] [address] [id number] [place] [address]- 8956 Nov, [facility] [place] [facility] [address] [id number] [place] [address]- 8426 Nov, [facility] [place] [facility] [address] [id number] [place] [address]- 9384 Nov, [facility] [place] [facility] [address] [id number] [place] [address]- 7800 Oct, [facility] [place] [facility] [address] [id number] [place] [address]- 2746 Oct, [facility] [place] [facility] [address] [id number] [place] [address]- 0670 Oct, [facility] [place] [facility] [address] [id number] [place] [address]- 1238 Oct, [facility] [place] [facility] [address] [id number] [place] [address]- 8770 Oct, [facility] [place] [facility] [address] [id number] [place] [address]- 1266 Oct, [facility] [place] [facility] [address] [id number] [place] [address]- 1257 Oct, [facility] [place] [facility] [address] [id number] [place] [address]- 5513 Oct, [facility] [place] [facility] [address] [id number] [place] [address]- 3486 Oct, [facility] [place] [facility] [address] [id number] [place] [address]- 5140 Oct, [facility] [place] [facility] [address] [id number] [place] [address]- 5153 Aug, [facility] [place] [facility] [address] [id number] [address]- 9131 Aug, [facility] [address] [id number] [place] [address]- 3231 Jul, [facility] [place] [facility] [address] [id number] [place] [address]- 8790 Jul, [facility] [address] [id number] [place] [address]- 5975 Jul, [facility] [place] [facility] [address] [id number] [place] [address]- 3680 Jul, [facility] [address] [id number] [place] [address]- 6139 Jul, [facility] [place] [facility] [address] [id number] [place] [address]- 2140 Jul, [facility] [address] [id number] [place] [address]- 2818 Apr, [facility] [place] [facility] [address] [id number] [place] [address]- 4055 Dec, [facility] [place] [facility] [address] [id number] [place] [address]- 2697 Nov, [facility] [place] [facility] [address] [id number] [place] [address]- 1541 Nov, [facility] [place] [facility] [address] [facility] [id number] [place] [address]- 4250 Nov, [facility] [place] [facility] [address] [id number], [place] [address]- 2540 Oct, [facility] [place] [facility] [address] [id number] [place] [address]- 6727 Sep, [facility] [place] [facility] [address] [id number], [place] [address]- 6606 Sep, [facility] [place] [facility] [address] [id number], [place] [address]- 6884 Sep, [facility] [place] [facility] [address] [id number] [place] [address]- 5769 Sep, [facility] [place] [facility] [address] [id number] [place] [address]- 7414 Aug, [facility] [place] [facility] [address] [id number] [place] 9306 Aug, [facility] [place] [facility] [address] [id number] [place] [address], [place] [address]- 6289 Jul, [facility] [place] [facility] [address] [id number] [place] [address]- 7738 Jul, [facility] [place] [facility] [address] [id number] [place] [address]- 0443 28 Jun, 2012 [facility] [place] [facility] [address] [id number] [place] [address]- 2034 26 Jun, 2012 [facility] [place] [facility] [address] [id number] [place] [address]- 6612 24 Jun, 2012 [facility] [place] [facility] [address] [id number] [place] [address]- 4129 24 Jun, 2012 [facility] [place] [facility] [address] [id number] [place] [address]- 2836 12 Jun, 2012 [facility] [place] [facility] [address] [id number] [place] [address]- 2614 31 Apr, 2012 [facility] [place] [facility] [address] [id number] [place] [address]- 5331 30 Apr, 2012 [facility] [place] [facility] [address] [id number] [place] [address]- 6034 Apr, [facility] [place] [facility] [address] [id number] [place] [address]- 8535 Mar, [facility] [place] [facility] [address] [id number] [place] [address]- 9983 Mar, [facility] [place] [facility] [address] [id number] [place] [address] Mar, [facility] [address] [id number] [place] [address] February, [facility] [place] [facility] [address] [id number] [place] [address] Jan, [facility] [place] [facility] [address] [id number] [place] [address] Dec, [facility] [place] [facility] [address] [id number] [place] [address] Dec, [facility] [place] [facility] [address] [id number] [place] [address] Dec, [facility] [place] [facility] [address] [id number] [place] [address] Dec, [facility] [place] [facility] [address] [id number] [place] [address] Dec, [facility] [place] [facility] [address] [id number] [place] [address] Nov, [facility] [place] [facility] [address] [id number] [place] [address] Nov, [facility] [place] [facility] [address] [id number] [place] [address] Oct, [facility] [place] [facility] [address] [id number] [place] [address] Oct, [facility] [place] [facility] [address] [id number] [place] [address] Oct, [facility] [place] [facility] [address] [id number] [place] [address] Sep, [facility] [place] [facility] [address] [id number] [place] [address] Aug, [facility] [place] [facility] [address] [id number] [place] [address] Aug, [facility] [place] [facility] [address] [id number] [place] [address] 28 Jul, 2011 [facility] [address] [id number] [place] [address] 24 Jul, 2011 [facility] [place] [facility] [address] [id number] [place] [address] 19 Jul, 2011 [facility] [place] [facility] [address] [id number] [place] [address] 13 Jan, 2011 [facility] [place] [facility] [address] [id number] [place] [address] 29 Sep, 2010 [facility] [place] [facility] [address] [id number] [place] [address] 27 Sep, 2010 [facility] [place] [facility] [address] [id number] [place] [address] 20 Sep, 2010 [facility] [place] [facility] [address] [id number] [place] [address] 20 Sep, 2010 [facility] [place] [facility] [address] [id number] [place] [address] 06 Sep, 2010 [facility] [place] [facility] [address] [id number] [place] [address] Aug, [facility] [place] [facility] [address] [id number] [place] [address] 16 Aug, 2010 [facility] [place] [facility] [address] [id number] [place] [address] 08 Aug, 2010 [facility] [place] [facility] [address] [id number] [place] [address] Jul, [facility] [place] [facility] [address] [id number] [place] [address] Jul, [facility] [place] [facility] [address] [id number] [place] [address] Jul, [facility] [place] [facility] [address] [id number] [place] [address] May, [facility] [address] [id number] [address] Apr, [facility] [id number] [address] Dec, [facility] [id number] [address] Sep, [facility] [id number] [address] Sep, [facility] [id number], [place] [address] Aug, [facility] [id number] [place] [address] Aug, [facility] [id number], [place] [address] Jul, [facility] [id number], [place] [address] Mar, IMMUNIZATIONS No Known Immunizations SOCIAL HISTORY Never Assessed REASON FOR VISIT New provider visit, previously seeing Meche robles rn, Very frantic and tearful today, Needing refills on several medications including controlled medications, was only given partial fills to get to today's appointment PLAN OF CARE Activity Details Follow Up 4 Weeks Reason:chronic pain Pending Test - PANEL (PROFILE 1) VITAL SIGNS Height 63 in 2018-06-24 Weight 215.8 lbs 2018-06-24 Temperature 97.2 degrees Fahrenheit 2018-06-24 Heart Rate 104 bpm 2018-06-24 Respiratory Rate 20 2018-06-24 Oximetry 98 % 2018-06-24 BMI 38.22 kg/m2 2018-06-24 Blood pressure systolic 134 mmHg 2018-06-24 Blood pressure diastolic 82 mmHg 2018-06-24 MEDICATIONS Medication Instructions Dosage Frequency Start Date End Date Duration Status Fenofibrate 145 MG Orally Once a day 1 tablet 24h 90 Active Metoprolol Tartrate 25 MG TAKE 1 TABLET BY MOUTH TWICE DAILY WITH FOOD 30 Active Lidocaine 5 % Externally Three times a day 1 application to affected area as needed 8h Active Valacyclovir HCl 1 GM Orally every 24 hrs 1 tablet 30 Active Nystatin 793012 UNIT/GM Externally three times a day 1 application to affected area 8h Oct, Active Cane 1 as directed 24h May, 99 days Active Clonazepam 0.5 MG Orally 3 times a day 1 tablet 8h Dec, 28 days Active Hydrocodone-Acetaminophen 5-325 MG Orally 4 times a day 1 tablet 6h JunJul, 28 days Active ProAir HFA 108 (90 Base) MCG/ACT Inhalation every 4 hrs prn 2 puffs as needed Jun, 30 days Active Glimepiride 2 MG Orally twice a day 1 tablet 12h 90 Active Promethazine HCl 25 MG Orally Once a day 1 tablet as needed 24h 30 Active OneTouch Lancets - as directed Jun, Active Lyrica 150 MG Orally Three times a day 1 capsule 8h 28 days Active Flonase 50 mcg/act Nasally Once a day 1 sprays by Nasal route 2 times per day in each nostril 24h 30 days Active Levemir Flexpen 100 UNIT/ML Subcutaneous Once a day 30 units 24h Not-Taking Protonix 40 mg Orally Once a day 1 tablet 24h Dec, 30 day(s) Active Carafate 1 GM orally twice daily 1 tablet Active Symbicort 80-4.5 MCG/ACT Inhalation Twice a day 2 puffs 12h Jul, Active Qmkasntyyq-ZKIC-Elobnvsm 50-325-40 MG Orally every 6 hrs for severe headache 1 tablet as needed Jun, Active BD Pen Needle Ultrafine 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 Not-Taking Nabumetone 500 mg Orally Twice a day 1 tablet 12h 90 days Active OneTouch Verio - In Vitro twice a day DX: E11.9 test blood sugar Jun, Active MS Contin 15 mg Orally Once a day 1 tablet 24h Jun, Jul, 28 days Active Robaxin 500 mg Orally 3 times a day 1 tablet 8h 90 days Active Amlodipine Besylate 5 mg Orally Once a day 1 tablet 24h 90 days Active RESULTS Name Result Date Reference Range A1C (IN HOUSE) 2018-06-24 A1C IN HOUSE 11 4.3 - 5.6 % Previous A1c 8.0 Lot [id number] Exp date 12/2019 URINE DRUG SCREEN (IN HOUSE) 2018-06-24 Lot # [id number] Exp date 07/2019 Control Pos COCAINE Neg AMPH Neg MTD Neg THC Neg OPIATE Pos BENZO Pos PCP Neg BAR Pos OXY Pos MAMP Neg BUP Neg MDMA Neg TCA Neg PROCEDURES Procedure Date Ordered Result Body Site GLYCATED HEMOGLOBIN TEST Jun 24, 2018 DRUG TEST PRSMV DIR OPT OBS Jun 24, 2018 LAB NOT BILLED BY [facility] Jun 24, 2018 INSTRUCTIONS MEDICATIONS ADMINISTERED No Known Medications [...] Hospitalization History Via [facility] and transferred to [place]-sepsis/ARF 2016
--- OUTSIDE RECORDS SUMMARY | 2018-10-08 20:25 | XMS REPORT ---
Author Author ART JONSE [facility] [address] Address [address] 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 Role Phone ART JONES Unavailable PROBLEMS Type Condition ICD9-CM Code IFD45-SF Code Onset Dates Condition Status SNOMED Code Problem HSV (herpes simplex virus) infection B00.9 Active 57773965 Problem Edema of both feet R60.0 Active 079270398 Problem Tobacco abuse Z72.0 Active 89723817 Problem Generalized anxiety disorder F41.1 Active 18178754 Problem Chronic pain disorder G89.4 Active 186070164 Problem Chronic migraine G43.709 Active 37354749 Problem Mixed hyperlipidemia E78.2 Active 121133799 Problem Type 2 diabetes mellitus with diabetic neuropathy, unspecified E11.40 Active 30491807 Problem penitentiary 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 Z79.4 Active 969046158 Problem Anxiety F41.9 Active 08429713 Problem Radiculopathy of lumbar region M54.16 Active 820975791 Problem Bulging lumbar disc M51.26 Active 274334680 Problem Essential hypertension I10 Active 98288153 Problem Asthma J45.909 Active 797406800 Problem Chronic pain G89.29 Active 50317673 Problem Spinal stenosis, lumbar region M48.06 Active 51443058 Problem Gastroesophageal reflux disease without esophagitis K21.9 Active 956719849 ALLERGIES No Information ENCOUNTERS Encounter Location Date Diagnosis [facility] [address] [id number] [address] Jul, [facility] [id number] [place] [address] 76003- 9404 Jun, Chronic migraine G43.709 [facility] [id number] [address] 2076 Jun, [facility] [id number] [place] [address] 90414- 1374 07 Jun, 2018 [facility] [id number] [place] [address] 92123- 0209 07 Jun, 2018 [place] [address] 36445- 7625 06 Jun, 2018 Asthma J45.909 [place] [address] 68562- 7185 04 Jun, 2018 Type 2 diabetes mellitus with diabetic neuropathy, unspecified E11.40 ; Chronic pain disorder G89.4 and Generalized anxiety disorder F41.1 [place] [address] 85464- 1176 May, Chronic pain G89.29 and Anxiety F41.9 [place] [address] 31964- 8150 May, [place] [address] 78935- 7749 May, Encounter for Depo-Provera contraception Z30.42 [place] [address] 78340- 7258 May, [place] [id number] [place] [address] 35513- 2911 Apr, Chronic pain G89.29 [place] [id number] [place] [address] 61137- 6497 Apr, Chronic pain G89.29 and Anxiety F41.9 [place] [id number] [place] [address] 01165- 1182 Mar, HSV (herpes simplex virus) infection B00.9 ; Anxiety F41.9 and Chronic pain G89.29 [facility] [id number] [place] [address] 77798- 4737 Mar, [facility] [address] 69352- 0477 Mar, Chronic pain G89.29 [place] [id number] [place] [address] 36841- 3346 February, Chronic pain G89.29 [place] [id number] [place] [address]- 6252 Jan, Chronic pain G89.29 [place] [id number] [place] [address] 11180- 1975 Jan, penitentiary 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 Z79.4 [place] [id number] [place] [address] 92687- 1031 Jan, Encounter for Depo-Provera contraception Z30.42 [place] [address] 86853- 7454 Jan, [place] [address] 72083- 7361 Jan, Chronic pain G89.29 and Anxiety F41.9 [place] [address] 34401- 1848 Jan, [place] [address] 45695- 8153 Dec, [place] [id number] [place] [address] 12542- 9349 Dec, Gastroesophageal reflux disease without esophagitis K21.9 and Anxiety F41.9 [place] [id number] [place] [address] 37291- 3757 Dec, Essential hypertension I10 ; Mixed hyperlipidemia E78.2 ; Type 2 diabetes mellitus with diabetic neuropathy, unspecified E11.40 ; penitentiary 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 Z79.4 ; Chronic pain G89.29 ; HSV (herpes simplex virus) infection B00.9 ; Anxiety F41.9 and Gastroesophageal reflux disease without esophagitis K21.9 [place] [id number] [place] [address] 96735- 9829 07 Dec, 2017 Chronic pain G89.29 and Chronic migraine G43.709 [place] [id number] [place] [address] 08150- 7172 Nov, [place] [id number] [place] [address] 09146- 5284 Nov, Essential hypertension I10 and Chronic pain G89.29 [place] [id number] [place] [address] 38543- 0298 Nov, Chronic pain G89.29 ; Essential hypertension I10 and Type 2 diabetes mellitus without complication E11.9 [place] [id number] [place] [address] 70718- 2932 Oct, Chronic pain G89.29 [place] [address] 47088- 5164 Oct, [place] [id number] [place] [address] 56913- 0249 Sep, Type 2 diabetes mellitus without complication E11.9 ; Essential hypertension I10 ; 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 ; Chronic migraine G43.709 ; Chronic pain G89.29 and Acute non-recurrent maxillary sinusitis J01.00 [place] [id number] [place] [address] 15716- 9041 Sep, Encounter for Depo-Provera contraception Z30.42 [place] [id number] [place] [address] 36681- 4533 Sep, Chronic pain G89.29 and Radiculopathy of lumbar region M54.16 [place] [id number] [place] [address] 16809- 2101 Sep, [place] [address] 70744- 7652 Sep, [place] [id number] [place] [address] 39140- 3134 Aug, Type 2 diabetes mellitus without complication E11.9 [place] [address], [place] [address]- 4487 Aug, [facility] [id number] [place] [address] 83912- 2597 Aug, Radiculopathy of lumbar region M54.16 and Chronic pain G89.29 [facility] [id number] [place] [address] 05623- 2165 Aug, Type 2 diabetes mellitus without complication E11.9 [facility] [id number] [place] [address] 09951- 6754 Aug, Type 2 diabetes mellitus without complication E11.9 [facility] [id number] [place] [address] 77872- 1112 Jul, Type 2 diabetes mellitus without complication E11.9 [facility] [id number] [place] [address] 44540- 8181 Jul, [facility] [id number] [place] [address] 76763- 8444 Jul, Chronic pain G89.29 [facility] [id number] [place] [address] 65936- 7897 Jul, [facility] [id number] [place] [address] 58620- 6636 Jul, [facility] [address], [place] [address]- 0070 Jul, Type 2 diabetes mellitus without complication E11.9 [facility] [address] [address]- 7592 Jul, [facility] [id number] [place] [address] 01161- 9192 Jul, Type 2 diabetes mellitus without complication E11.9 [facility] [address], [place] [address]- 3838 Jul, [facility] [id number] [place] [address] 23915- 5632 Jul, [facility] [id number] [place] [address] 79271- 2411 Jul, [place] [address] 24545- 3535 Jun, Type 2 diabetes mellitus without complication E11.9 [place] [address] 26059- 3522 Jun, Chronic migraine G43.709 ; Type 2 diabetes mellitus without complication E11.9 ; Calculus of right kidney N20.0 ; Yeast dermatitis B37.2 and HSV (herpes simplex virus) infection B00.9 [place] [address] 01851- 1957 Jun, Type 2 diabetes mellitus without complication E11.9 [place] [address] 87968- 2804 Jun, [place] [address] 28246- 6063 Jun, Radiculopathy of lumbar region M54.16 and Chronic pain G89.29 [place] [id number] [place] [address] 80140- 1061 Jun, Encounter for Depo-Provera contraception Z30.42 [place] [id number] [place] [address] 53680- 5894 Jun, Type 2 diabetes mellitus without complication E11.9 [place] [id number] [place] [address] 58029- 9927 Jun, [facility] [address] 94892 -7213 May, Acute nasopharyngitis (common cold) J00 [facility] [id number] [place] [address] 56015- 5139 May, Chronic pain G89.29 [place] [address] [place] [address]- 8579 May, Headache following lumbar puncture G97.1 [place] [address] 62647- 9929 May, Radiculopathy of lumbar region M54.16 [place] [address] 10654- 0256 Apr, [place] [address] 03209- 1018 Apr, Type 2 diabetes mellitus without complication E11.9 ; Chronic pain G89.29 ; Essential hypertension I10 ; Radiculopathy of lumbar region M54.16 ; Spinal stenosis, lumbar region M48.06 ; Gastroesophageal reflux disease without esophagitis K21.9 ; HSV (herpes simplex virus) infection B00.9 ; Mixed hyperlipidemia E78.2 ; Anxiety F41.9 and Asthma J45.[address] 01226- 6213 Apr, Encounter for Depo-Provera contraception Z30.[address] 91359- 3936 Apr, Chronic pain G89.29 and Anxiety F41.9 [id number] [place] [address] 47997- 4228 Mar, [place] [address] 59734- 2456 Mar, [place] [id number] [place] [address] 02685- 6099 Mar, Mixed hyperlipidemia E78.2 [place] [address] 50805- 4068 Mar, Type 2 diabetes mellitus without complication E11.9 ; Chronic pain G89.29 ; Essential hypertension I10 ; Radiculopathy of lumbar region M54.16 ; Spinal stenosis, lumbar region M48.06 ; Gastroesophageal reflux disease without esophagitis K21.9 ; HSV (herpes simplex virus) infection B00.9 ; Mixed hyperlipidemia E78.2 and Anxiety F41.9 [place] [id number] [place] [address] 06416- 7061 Mar, [facility] [id number] [place] [address] 06614- 3228 Mar, [place] [id number] [place] [address] 53605- 7927 Mar, [facility] [id number] [place] [address] 73003- 8088 February, Chronic pain G89.29 [place] [id number] [place] [address] 01250- 7713 February, [facility] [id number] [place] [address] 43955- 5008 Jan, Chronic pain G89.29 [place] [id number] [place] [address] 66393- 6896 Jan, Type 2 diabetes mellitus without complication E11.9 [place] [id number] [place] [address] 09729- 7086 Jan, [facility] [id number] [place] [address] 14061- 8390 Jan, [place] [id number] [place] [address] 00750- 2290 Jan, [facility] [id number] [place] [address] 32821- 0924 Jan, Type 2 diabetes mellitus without complication [...] J01.00 and Encounter for Depo-Provera contraception Z30.42 [place] [address] [place] [address] 62879- 3548 Dec, Chronic pain G89.29 [place] [id number] [place] [address] 59202- 3320 Dec, Abnormal ankle brachial index (BERNARDINO) R68.89 [address] [address] 94543- 7371 Dec, [place] [id number] [place] [address] 22428- 1104 Dec, Routine gynecological examination Z01.419 ; Chronic [...] virus) infection B00.9 and Allergic rhinitis 477.9 [place] [id number] [place] [address] 32273- 3197 28 Nov, 2016 Chronic pain G89.29 [place] [id number] [place] [address] 62621- 3708 02 Nov, 2016 Chronic pain G89.29 ; [...] mucoid otitis media of both ears H65.113 [place] [address] [place] [address] 13715- 9875 Oct, [place] [id number] [place] [address] 71288- 2762 Oct, Chronic pain G89.29 [place] [id number] [place] [address] 78727- 3838 Oct, Chronic pain G89.29 [place] [id number] [place] [address] 94503- 5046 Sep, Chronic pain G89.29 ; Type 2 diabetes mellitus without complication E11.9 ; Essential hypertension I10 ; Radiculopathy of lumbar region M54.16 ; Spinal stenosis, lumbar region M48.06 ; Gastroesophageal reflux disease without esophagitis K21.9 ; Encounter for surveillance of injectable contraceptive Z30.42 ; Bilateral cold feet R20.9 ; Pain of left foot M79.672 and Pain in right foot M79.671 [place] [id number] [place] [address] 72037- 0063 Sep, [place] [id number] [place] [address] 62172- 4767 Aug, [place] [id number] [place] [address] 58868- 5193 Aug, [place] [id number] [place] [address] 99415- 3391 Aug, Chronic pain G89.29 ; Type 2 diabetes mellitus without complication E11.9 ; Essential hypertension I10 ; Rash and nonspecific skin eruption R21 and Upper respiratory infection, acute J06.9 [place] [id number] [place] [address] 40487- 8664 Aug, [place] [id number] [place] [address] 15259- 8820 Aug, [place] [address] 84291- 1209 Jul, [place] [id number] [place] [address] 68511- 7513 Jul, Dysuria R30.0 ; Encounter for Depo-Provera contraception Z30.42 ; Herpes simplex B00.9 ; Nausea & vomiting R11.2 and Asthma J45.909 [facility] [id number] [place] [address] 74321- 5714 21 Jun, 2016 Dysuria R30.0 [facility] [id number] [place] [address] 04261- 4402 19 Jun, 2016 Dysuria R30.0 [facility] [address] 31449- 1200 15 Jun, 2016 [facility] [address] 37311- 2246 13 Jun, 2016 [place] [address] 88608- 8243 May, [place] [address] 62025- 0333 May, [place] [address] 60752- 4779 May, Chronic pain G89.29 ; Essential hypertension I10 ; Type 2 diabetes mellitus without complication E11.9 ; Edema of both feet R60.0 and Rash and nonspecific skin eruption R21 [place] [id number] [place] [address] 82170- 6040 Apr, [facility] [id number] [place] [address] 07403- 3310 Mar, Carpal tunnel syndrome, left upper limb G56.02 and Carpal tunnel syndrome, right upper limb G56.01 [place] [id number] [place] [address] 35621- 5771 Mar, [place] [address] 73019- 7471 Mar, Encounter for Depo-Provera contraception Z30.42 [facility] [id number] [place] [address] 52681- 6890 February, [place] [id number] [place] [address] 74566- 2647 February, [place] [address] 06041- 3381 February, Chronic pain G89.29 ; Essential hypertension I10 ; Type 2 diabetes mellitus without complication E11.9 ; HSV (herpes simplex virus) infection B00.9 ; Anxiety F41.9 ; Hypersomnia G47.10 ; Tobacco abuse Z72.0 ; Hand pain, left M79.642 ; Hand pain, right M79.641 ; Left foot pain M79.672 and Heart palpitations R00.2 [place] [address] 28055- 8957 Jan, [place] [address] 18233- 4043 Jan, [place] [address] 31296- 5626 Jan, [place] [address] 22758- 1580 Jan, [address] 30854- 3510 Jan, Upper respiratory infection J06.9 and Type 2 diabetes mellitus without complication E11.9 [place] [id number] [place] [address] 79583- 0113 Dec, [place] [address] 08539- 4273 Dec, Chronic pain G89.29 ; Essential hypertension I10 ; Type 2 diabetes mellitus without complication E11.9 ; HSV (herpes simplex virus) infection B00.9 ; Anxiety F41.9 ; Upper respiratory infection J06.9 ; Hypersomnia G47.10 and Tobacco abuse Z72.0 [id number] [place] [address] 58935- 0691 17 Dec, 2015 Encounter for Depo-Provera contraception Z30.42 [address] [address] [place] [address] 87006- 7010 Dec, [place] [id number] [place] [address] 22579- 1091 Dec, Chronic pain G89.29 ; Sinusitis J32.9 ; Snoring R06.83 and Daytime hypersomnia G47.19 [place] [id number] [place] [address] 55445- 6075 Nov, HSV (herpes simplex virus) infection B00.9 ; Encounter for Papanicolaou smear for cervical cancer screening Z12.4 ; Screening for STD sexually transmitted disease Z11.3 and Bartholin's gland cyst N75.0 [place] [address] 32046- 3667 Nov, [place] [address] 40381- 4366 Nov, [place] [address] 90119- 7858 Nov, Essential hypertension I10 ; Type 2 diabetes mellitus without complication E11.9 ; HSV (herpes simplex virus) infection B00.9 ; Spinal stenosis, lumbar region M48.06 and Vaginal yeast infection B37.3 [place] [id number] [place] [address] 83857- 8819 Nov, [place] [id number] [place] [address] 27181- 6389 Nov, [place] [id number] [place] [address] 07200- 2070 Oct, [place] [address] 34273- 5782 Oct, HSV (herpes simplex virus) infection B00.9 ; Yeast infection B37.9 ; Change in bowel habit R19.4 ; Nausea & vomiting R11.2 and Gastroesophageal reflux disease without esophagitis K21.9 [place] [id number] [place] [address] 78750- 0303 Oct, [place] [id number] [place] [address] 90803- 2772 Oct, Type 2 diabetes mellitus without complication E11.9 ; Essential hypertension I10 and Acute maxillary sinusitis, recurrence not specified J01.00 [place] [address] 73821- 0719 Oct, [place] [address] 87908- 5304 Oct, [address] 45944- 0056 Oct, Exposure to head lice Z20.7 ; Blood glucose abnormal R73.09 ; Boil of buttock L02.32 and Type 2 diabetes mellitus without complication E11.[address] 62005- 8593 Oct, [place] [address] 49267- 5624 Sep, [address] 90391- 9427 Sep, [address] 98120- 1954 Aug, Encounter for Depo-Provera contraception Z30.[address] 84903- 6091 Aug, Anxiety F41.9 ; Spinal stenosis, lumbar region M48.06 ; Radiculopathy of lumbar region M54.16 ; Asthma J45.909 ; GERD (gastroesophageal reflux disease) K21.9 ; Essential hypertension I10 and Long-term use of high- risk medication Z79.899 [id number] [place] [address] 09613- 2159 Jul, [address] 01662- 7743 Jun, Hemorrhoid 455.6 [place] [id number] [place] [address] 35754- 7604 Jun, [place] [address] 243347- 0647 Jun, Anxiety 300.00 ; Asthma 493.90 ; Hyperhidrosis 705.21 ; Chest discomfort 786.59 and Upper respiratory infection 465.[address] 02163- 9243 May, Encounter for Depo-Provera contraception V25.[address] 09184- 0840 May, [address] 24326- 6161 May, [address] 60023- 9104 May, Spinal stenosis of lumbar region with radiculopathy 724.02 ; Bulging of intervertebral disc between L4 and L5 722.10 ; GERD ( gastroesophageal reflux disease) 530.81 ; Chronic pain 338.29 ; Declining mobility 799.89 and Epigastric pain 789.06 [place] [id number] [place] [address] 03800- 0244 Apr, [address] 05550- 7613 Apr, Nausea 787.02 and Heart burn 787.1 [place] [id number] [place] [address] 15244- 4659 Mar, Lumbago 724.2 ; Vitamin D deficiency 268.9 ; Anxiety 300.00 ; Allergic rhinitis 477.9 and Contraceptive surveillance V25.40 [place] [id number] [place] [address] 44271- 9056 February, 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 ; Chronic pain 338.29 and Vaginal discharge 623.5 [facility] [place] [facility] [address] [id number] [place] [address]- 0321 February, [facility] [place] [facility] [address] [id number] [place] [address]- 3880 February, [facility] [place] [facility] [address] [id number] [place] [address]- 7120 Jan, [facility] [place] [facility] [address] [id number], [place] [address]- 5741 Jan, [facility] [place] [facility] [address] [id number] [place] [address]- 7743 Dec, [facility] [place] [facility] [address] [id number] [place] [address]- 3388 Dec, [facility] [place] [facility] [address] [facility] [id number] [place] [address]- 5542 Dec, [facility] [place] [facility] [address] [id number], [place] [address]- 6700 Dec, [facility] [place] [facility] [address] [id number] [place] [address]- 3003 Dec, [facility] [place] [facility] [address] [facility] [id number], [place] [address] Dec, [facility] [place] [facility] [address] [id number], [place] [address] Dec, [facility] [place] [facility] [address] [id number], [place] [address] Dec, [facility] [place] [facility] [address] [id number], [place] [address] Dec, [facility] [place] [facility] [address] [id number], [place] [address] Dec, [facility] [place] [facility] [address] [facility] [id number], [place] [address] Dec, [facility] [place] [facility] [address] [id number] [place] [address] Dec, [facility] [place] [facility] [address] [facility] [id number] [place] [address] Nov, 2014 [facility] [place] [facility] [address] [facility] [id number] [place] [address] Nov, 2014 [facility] [place] [facility] [address] [facility] [id number] [place] [address] 24 Nov, 2014 [facility] [place] [facility] [address] [facility] [id number] [place] [address] 24 Nov, 2014 [facility] [place] [facility] [address] [facility] [id number] [place] [address] 23 Nov, 2014 [facility] [place] [facility] [address] [facility] [id number] [place] [address] 23 Nov, 2014 [facility] [place] [facility] [address] [id number] [address] 16 Nov, 2014 [facility] [place] [facility] [address] [facility] [id number] [place] [address] 1179 16 Nov, 2014 [facility] [place] [facility] [address] [id number] [address] 5240 13 Nov, 2014 [facility] [place] [facility] [address] [id number] [address] 13 Nov, 2014 [facility] [place] [facility] [address] [facility] [id number], [place] [address] 7[address] 13 Nov, 2014 [facility] [place] [facility] [address] [facility] [id number] [place] [address]- 7167 13 Nov, 2014 [facility] [place] [facility] [address] [facility] [id number] [place] [address]- 0241 13 Nov, 2014 [facility] [place] [facility] [address] [facility] [id number] [place] [address]- 5722 13 Nov, 2014 [facility] [place] [facility] [address] [facility] [id number], [place] [address] Nov, 2014 [facility] [place] [facility] [address] [id number] [place] [address]- 8836 Nov, 2014 [facility] [place] [facility] [address] [id number] [place] [address]- 0086 Nov, 2014 [facility] [place] [facility] [address] [facility] [id number] [place] [address]- 1376 Nov, 2014 [facility] [place] [facility] [address] [id number] [place] [address]- 3386 Nov, 2014 [facility] [place] [facility] [address] [id number] [place] [address]- 3703 Nov, 2014 [facility] [place] [facility] [address] [facility] [id number] [place] [address]- 3697 Nov, 2014 [facility] [place] [facility] [address] [facility] [id number] [place] [address]- 2626 Nov, 2014 [facility] [place] [facility] [address] [facility] [id number] [place] [address]- 3125 Nov, [facility] [place] [facility] [address] [facility] [id number] [place] [address]- 5286 Oct, [facility] [place] [facility] [address] [facility] [id number] [place] [address]- 1123 Oct, [facility] [place] [facility] [address] [facility] [id number] [place] [address]- 3093 Oct, [facility] [place] [facility] [address] [facility] [id number] [place] [address]- 1068 Oct, [facility] [place] [facility] [address] [id number] [place] [address]- 0433 Oct, [facility] [place] [facility] [address] [facility] [id number] [place] [address]- 9369 Oct, [facility] [place] [facility] [address] [facility] [id number] [place] [address]- 6333 Oct, [facility] [place] [facility] [address] [id number] [place] [address]- 5739 Oct, [facility] [place] [facility] [address] [id number] [place] [address]- 0141 Oct, [facility] [place] [facility] [address] [id number] [place] [address]- 3883 Oct, [facility] [place] [facility] [address] [id number] [place] [address]- 0370 Oct, [facility] [place] [facility] [address] [id number] [place] [address]- 3410 Oct, [facility] [place] [facility] [address] [id number] [place] [address]- 4375 Oct, [facility] [place] [facility] [address] [id number] [place] [address]- 9830 Oct, [facility] [place] [facility] [address] [id number] [place] [address]- 7550 Oct, [facility] [place] [facility] [address] [id number] [place] [address]- 7919 Oct, [facility] [place] [facility] [address] [id number] [place] [address]- 6898 Oct, [facility] [place] [facility] [address] [id number] [place] [address]- 4569 Oct, [facility] [place] [facility] [address] [id number], [place] [address]- 9363 Oct, [facility] [place] [facility] [address] [id number] [place] [address]- 1652 Oct, [facility] [place] [facility] [address] [id number] [place] [address]- 1451 Oct, [facility] [place] [facility] [address] [id number] [place] [address]- 1308 Sep, [facility] [place] [facility] [address] [id number], [place] [address]- 3889 29 Sep, 2014 [facility] [place] [facility] [address] [id number] [place] [address]- 6006 18 Sep, 2014 [facility] [place] [facility] [address] [id number] [place] [address]806 18 Sep, 2014 [facility] [place] [facility] [address] [id number] [place] [address]- 2536 17 Sep, 2014 [facility] [place] [facility] [address] [id number] [place] [address]- 7644 17 Sep, 2014 [facility] [place] [facility] [address] [id number] [place] [address]- 0656 15 Sep, 2014 [facility] [place] [facility] [address] [id number] [place] [address]- 2890 15 Sep, 2014 [facility] [place] [facility] [address] [id number] [place] [address]- 0580 12 Sep, 2014 [facility] [place] [facility] [address] [id number] [place] [address]- 2721 12 Sep, 2014 [facility] [place] [facility] [address] [id number] [place] [address]- 4248 11 Sep, 2014 [facility] [place] [facility] [address] [id number] [place] [address]- 9710 11 Sep, 2014 [facility] [place] [facility] [address] [id number] [place] [address]- 5127 Sep, [facility] [place] [facility] [address] [id number] [place] [address]- 3237 11 Sep, 2014 [facility] [place] [facility] [address] [id number] [place] [address]- 8801 11 Sep, 2014 [facility] [place] [facility] [address] [id number] [place] [address]- 2013 11 Sep, 2014 [facility] [place] [facility] [address] [id number] [place] [address]- 0192 10 Sep, 2014 [facility] [place] [facility] [address] [id number] [place] [address]- 6306 Sep, [facility] [place] [facility] [address] [id number] [place] [address]- 3381 Sep, [facility] [place] [facility] [address] [id number] [place] [address]- 8750 Sep, [facility] [place] [facility] [address] [id number] [place] [address]- 1269 Aug, [facility] [place] [facility] [address] [id number] [place] [address]- 8867 Aug, [facility] [place] [facility] [address] [id number] [place] [address]- 4857 Aug, [facility] [place] [facility] [address] [id number] [place] [address]- 8955 Aug, [facility] [place] [facility] [address] [id number] [place] [address]- 8302 Aug, [facility] [place] [facility] [address] [id number] [place] [address]- 3340 Aug, [facility] [place] [facility] [address] [id number] [place] [address]- 6457 Aug, [facility] [place] [facility] [address] [id number] [place] [address]- 8644 Aug, [facility] [place] [facility] [address] [id number] [place] [address]- 8975 Aug, [facility] [place] [facility] [address] [id number] [place] [address]- 7599 Jul, [facility] [place] [facility] [address] [id number] [place] [address]- 2665 Jul, [facility] [place] [facility] [address] [id number] [place] [address]- 5760 Jul, [facility] [place] [facility] [address] [id number] [place] [address]- 7208 Jul, [facility] [place] [facility] [address] [id number] [place] [address]- 4391 16 Jul, 2014 [facility] [place] [facility] [address] [id number] [place] [address]- 6065 16 Jul, 2014 [facility] [place] [facility] [address] [id number] [place] [address]- 7867 13 Jul, 2014 [facility] [place] [facility] [address] [id number] [place] [address]- 8900 13 Jul, 2014 [facility] [place] [facility] [address] [id number] [place] [address]- 4046 10 Jul, 2014 [facility] [place] [facility] [address] [id number] [place] [address]- 3167 10 Jul, 2014 [facility] [place] [facility] [address] [id number] [place] [address]- 3013 10 Jul, 2014 [facility] [place] [facility] [address] [id number] [place] [address]- 3167 10 Jul, 2014 [facility] [place] [facility] [address] [id number] [place] [address]- 8714 07 Jul, 2014 [facility] [place] [facility] [address] [id number], [place] [address]- 3600 07 Jul, 2014 [facility] [place] [facility] [address] [id number], [place] [address]- 7363 30 Jun, 2013 [facility] [place] [facility] [address] [id number], [place] [address]- 1634 30 Sep, 2013 [facility] [place] [facility] [address] [id number] [place] [address]- 2186 25 Jun, 2013 [facility] [place] [facility] [address] [id number], [place] [address]- 8752 25 Jun, 2013 [facility] [place] [facility] [address] [id number] [place] [address]- 0367 25 Jun, 2013 [facility] [place] [facility] [address] [id number] [place] [address]- 6261 25 Sep, 2013 [facility] [place] [facility] [address] [id number] [place] [address] 2546 24 Sep, 2013 [facility] [place] [facility] [address] [id number] [place] [address] 2546 24 Sep, 2013 [facility] [place] [facility] [address] [id number] [place] [address] 2546 22 Sep, 2013 [facility] [place] [facility] [address] [id number] [place] [address] 2542 22 Sep, 2013 [facility] [place] [facility] [address] [id number] [place] [address]- 4569 17 Sep, 2013 [facility] [place] [facility] [address] [id number] [place] [address]- 7237 17 Sep, 2013 [facility] [place] [facility] [address] [id number] [place] [address]- 9314 16 Sep, 2013 [facility] [place] [facility] [address] [id number] [place] [address]- 2542 16 Sep, 2013 [facility] [place] [facility] [address] [id number] [place] [address]- 6321 15 Sep, 2013 [facility] [place] [facility] [address] [id number] [place] [address]- 2542 15 Sep, 2013 [facility] [place] [facility] [address] [id number] [place] [address] 2549 12 Sep, 2013 [facility] [place] [facility] [address] [id number] [place] [address] 2545 12 Sep, 2013 [facility] [place] [facility] [address] [id number] [place] [address] 2546 11 Sep, 2013 [facility] [place] [facility] [address] [id number] [place] [address]- 2546 11 Sep, 2013 [facility] [place] [facility] [address] [id number] [place] [address]- 2543 11 Sep, 2013 [facility] [place] [facility] [address] [id number] [place] [address]- 4268 Jun, 2013 [facility] [place] [facility] [address] [id number] [place] [address]- 7177 Jun, [facility] [place] [facility] [address] [id number] [place] [address]- 2849 Jun, [facility] [place] [facility] [address] [id number] [place] [address]- 0777 Jun, [facility] [place] [facility] [address] [id number] [place] [address]- 4578 Jun, [facility] [place] [facility] [address] [id number] [place] [address]- 4526 May, [facility] [place] [facility] [address] [id number] [place] [address]- 0415 May, [facility] [place] [facility] [address] [id number] [place] [address]- 1371 May, [facility] [place] [facility] [address] [id number] [place] [address]- 9315 May, [facility] [place] [facility] [address] [id number] [place] [address]- 2497 May, [facility] [place] [facility] [address] [id number] [place] [address]- 7196 May, [facility] [place] [facility] [address] [id number] [place] [address]- 8117 May, [facility] [place] [facility] [address] [id number] [place] [address]- 2173 May, [facility] [place] [facility] [address] [id number] [place] [address]- 5368 May, [facility] [place] [facility] [address] [id number] [place] [address]- 1016 May, [facility] [place] [facility] [address] [id number] [place] [address]- 5705 May, [facility] [place] [facility] [address] [id number] [place] [address]- 4051 May, [facility] [place] [facility] [address] [id number] [place] [address]- 6301 May, [facility] [place] [facility] [address] [id number] [place] [address]- 0311 Apr, [facility] [place] [facility] [address] [id number] [place] [address]- 8875 Apr, [facility] [place] [facility] [address] [id number] [place] [address]- 4498 Apr, [facility] [place] [facility] [address] [id number] [place] [address]- 1944 Apr, [facility] [place] [facility] [address] [id number] [place] [address]- 9114 Apr, [facility] [place] [facility] [address] [id number] [place] [address]- 8540 Mar, [facility] [place] [facility] [address] [id number] [place] [address]- 0725 Mar, [facility] [place] [facility] [address] [id number] [place] [address]- 6811 Mar, [facility] [place] [facility] [address] [id number] [place] [address]- 4497 February, [facility] [place] [facility] [address] [id number] [place] [address]- 3388 February, [facility] [place] [facility] [address] [id number] [place] [address]- 1453 February, [facility] [place] [facility] [address] [id number] [place] [address]- 0300 February, [facility] [place] [facility] [address] [id number] [place] [address]- 3809 February, [facility] [place] [facility] [address] [id number] [place] [address]- 5713 February, [facility] [address] [id number] [place] [address]- 6070 February, [facility] [place] [facility] [address] [id number] [place] [address]- 1241 February, [facility] [place] [facility] [address] [id number] [place] [address]- 4616 February, [facility] [place] [facility] [address] [id number] [place] [address]- 9055 Jan, [facility] [place] [facility] [address] [id number] [place] [address]- 6364 Jan, [facility] [place] [facility] [address] [id number] [place] [address]- 6975 Jan, [facility] [place] [facility] [address] [id number] [place] [address]- 0452 Jan, [facility] [place] [facility] [address] [id number] [place] [address]- 1877 Jan, [facility] [place] [facility] [address] [id number] [place] [address]- 4203 Dec, [facility] [place] [facility] [address] [id number] [place] [address]- 8263 Dec, [facility] [place] [facility] [address] [id number] [place] [address]- 7706 Dec, [facility] [place] [facility] [address] [id number] [place] [address]- 0359 Dec, [facility] [place] [facility] [address] [id number] [place] [address]- 8334 Dec, [facility] [place] [facility] [address] [id number] [place] [address]- 6063 Nov, [facility] [place] [facility] [address] [id number] [place] [address]- 2063 Nov, [facility] [place] [facility] [address] [id number] [place] [address]- 6511 Nov, [facility] [place] [facility] [address] [id number] [place] [address]- 3051 Nov, [facility] [place] [facility] [address] [id number] [place] [address]- 7400 Oct, [facility] [place] [facility] [address] [id number] [place] [address]- 5779 Oct, [facility] [place] [facility] [address] [id number] [place] [address]- 9329 Oct, [facility] [place] [facility] [address] [id number] [place] [address]- 0121 Oct, [facility] [place] [facility] [address] [id number] [place] [address]- 2578 Oct, [facility] [place] [facility] [address] [id number] [place] [address]- 3353 Oct, [facility] [place] [facility] [address] [id number] [place] [address]- 4786 Oct, [facility] [place] [facility] [address] [id number] [place] [address]- 5183 Oct, [facility] [place] [facility] [address] [id number] [place] [address]- 1113 Oct, [facility] [place] [facility] [address] [id number], [place] [address]- 6904 Oct, [facility] [place] [facility] [address] [id number] [place] [address]- 2473 Aug, [facility] [place] [facility] [address] [id number] [place] [address]- 4541 Aug, [facility] [place] [facility] [address] [id number] [place] [address]- 6401 Jul, [facility] [place] [facility] [address] [id number] [place] [address]- 8568 Jul, [facility] [address] [id number] [place] [address]- 2399 Jul, [facility] [place] [facility] [address] [id number] [place] [address]- 7605 Jul, [facility] [place] [facility] [address] [id number] [place] [address]- 3108 Jul, [facility] [place] [facility] [address] [id number] [place] [address]- 2637 Jul, [facility] [place] [facility] [address] [id number] [place] [address]- 8140 Apr, [facility] [place] [facility] [address] [id number] [place] [address]- 7491 Dec, [facility] [place] [facility] [address] [id number] [place] [address]- 8421 Nov, [facility] [place] [facility] [address] [id number] [place] [address]- 0912 Nov, [facility] [place] [facility] [address] [id number] [place] [address]- 1127 Nov, [facility] [place] [facility] [address] [facility] [id number] [place] [address]- 0175 Oct, [facility] [place] [facility] [address] [id number] [place] [address]- 1717 Sep, [facility] [place] [facility] [address] [id number] [place] [address]- 9597 Sep, [facility] [place] [facility] [address] [id number] [place] [address]- 8769 Sep, [facility] [place] [facility] [address] [id number] [place] 5449 Sep, [facility] [place] [facility] [address] [id number] [place] [address]- 3555 Aug, [facility] [place] [facility] [address] [id number] [place] [address]- 2443 13 Aug, 2012 [facility] [place] [facility] [address] [id number] [place] [address]- 9102 Jul, [facility] [place] [facility] [address] [id number] [place] [address]- 0739 Jul, [facility] [place] [facility] [address] [id number] [place] [address]- 1680 28 Jun, 2012 [facility] [place] [facility] [address] [id number] [place] [address]- 0019 26 Jun, 2012 [facility] [place] [facility] [address] [id number] [place] [address]- 4365 24 Jun, 2012 [facility] [place] [facility] [address] [id number] [place] [address]- 3844 24 Jun, 2012 [facility] [place] [facility] [address] [id number] [place] [address] Jun, [facility] [place] [facility] [address] [id number] [place] [address] Apr, [facility] [place] [facility] [address] [id number] [place] [address] Apr, [facility] [place] [facility] [address] [id number] [place] [address] Apr, [facility] [place] [facility] [address] [id number] [place] [address] Mar, [facility] [place] [facility] [address] [id number] [place] [address] Mar, [facility] [place] [facility] [address] [id number] [place] [address] Mar, [facility] [place] [facility] [address] [id number] [place] [address] February, [facility] [place] [facility] [address] [id number], [place] [address] 18 Jan, 2012 [facility] [place] [facility] [address] [id number] [place] [address] Dec, [facility] [place] [facility] [address] [id number] [place] [address]32 21 Dec, 2011 [facility] [place] [facility] [address] [id number] [place] [address] 20 Dec, 2011 [facility] [place] [facility] [address] [id number] [place] [address] 9519 19 Dec, 2011 [facility] [place] [facility] [address] [id number] [place] [address]408 Dec, [facility] [place] [facility] [address] [id number] [place] [address] 14 Nov, 2011 [facility] [place] [facility] [address] [facility] [id number] [place] [address] 13 Nov, 2011 [facility] [place] [facility] [address] [id number] [place] [address] 8666 Oct, [facility] [place] [facility] [address] [facility] [id number] [place] [address] 2535 Oct, [facility] [place] [facility] [address] [facility] [id number] [place] [address] 1288 Oct, [facility] [place] [facility] [address] [id number], [place] [address] Sep, [facility] [place] [facility] [address] [id number] [place] [address] Aug, [facility] [place] [facility] [address] [id number] [place] [address] 9642 10 Aug, 2011 [facility] [place] [facility] [address] [facility] [id number] [place] [address] 3525 28 Jul, 2011 [facility] [place] [facility] [address] [facility] [id number] [place] [address] 1761 24 Jul, 2011 [facility] [place] [facility] [address] [id number] [place] [address]- 5805 19 Jul, 2011 [facility] [address] [id number] [place] [address]- 8254 13 Jan, 2011 [facility] [place] [facility] [address] [id number] [place] [address]- 7246 29 Sep, 2010 [facility] [place] [facility] [address] [id number] [place] [address] 2546 27 Sep, 2010 [facility] [place] [facility] [address] [id number] [place] [address] 2549 20 Sep, 2010 [facility] [place] [facility] [address] [id number] [place] [address] 0036 20 Sep, 2010 [facility] [place] [facility] [address] [id number] [place] [address]- 1746 06 Sep, 2010 [facility] [place] [facility] [address] [id number] [place] [address] 0038 16 Aug, 2010 [facility] [place] [facility] [address] [id number] [place] [address] 9887 16 Aug, 2010 [facility] [place] [facility] [address] [id number] [place] [address] 5818 08 Aug, 2010 [facility] [place] [facility] [address] [facility] [id number] [place] [address]- 3056 19 Jul, 2010 [facility] [place] [facility] [address] [id number] [place] [address] 2943 19 Jul, 2010 [facility] [place] [facility] [address] [id number] [place] [address]- [address]290 12 Jul, 2010 [facility] [place] [facility] [address] [id number] [place] [address]- 1486 11 May, 2010 [facility] [place] [facility] [address] [id number] [place] [address] 2546 13 Apr, 2010 [facility] [place] [facility] [address] [id number] [place] [address] 2545 Dec, [facility] [address] [facility] [id number], [place] [address] Sep, [facility] [address] [id number], [place] [address] Sep, [facility] [address] [id number], [place] [address] Aug, [facility] [id number], [place] [address] Aug, [facility] [address] [facility] [id number], [place] [address] Jul, [facility] [address] [id number], [place] [address] 2008 Mar, IMMUNIZATIONS No Known Immunizations SOCIAL HISTORY Never Assessed REASON FOR VISIT PLAN OF CARE VITAL SIGNS MEDICATIONS Medication Instructions Dosage Frequency Start Date End Date Duration Status Flonase 50 mcg/act 1 sprays by Nasal route 2 times per day in each nostril 30 days Active RESULTS No Results PROCEDURES [...] History Surgery(s) only Hospitalization History [facility] and transferred to [place]-sepsis/ARF 2016
--- OUTSIDE RECORDS SUMMARY | 2018-10-08 20:27 | XMS REPORT ---
Author Author ART JONES [facility] Address [address] [place] [address] Care Team Providers Care [employer] Re[employer]er Name Role Phone ART JONES Unavailable PROBLEMS Type Condition ICD9-CM Code REK41-MW Code Onset Dates Condition Status SNOMED Code Problem HSV (herpes simplex virus) infection B00.9 Active 23023440 Problem Edema of both feet R60.0 Active 217320696 Problem Tobacco abuse Z72.0 Active 55146423 Problem Generalized anxiety disorder F41.1 Active 39870089 Problem Chronic pain disorder G89.4 Active 490353245 Problem Chronic migraine G43.709 Active 06729771 Problem Mixed hyperlipidemia E78.2 Active 173328806 Problem Type 2 diabetes mellitus with diabetic neuropathy, unspecified E11.40 Active 51573224 Problem jail 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 Z79.4 Active 762779590 Problem Anxiety F41.9 Active 43536894 Problem Radiculopathy of lumbar region M54.16 Active 006258058 Problem Bulging lumbar disc M51.26 Active 231744859 Problem Essential hypertension I10 Active 19915224 Problem Asthma J45.909 Active 896023773 Problem Chronic pain G89.29 Active 56637809 Problem Spinal stenosis, lumbar region M48.06 Active 33503465 Problem Gastroesophageal reflux disease without esophagitis K21.9 Active 443070167 ALLERGIES No Information ENCOUNTERS Encounter Location Date Diagnosis [facility] [id number] [address] Jul, [facility] [address] [place] [address] 93453- 0998 Jun, Chronic migraine G43.709 [facility] [id number], [place] [address] 8[address] Jun, [facility] [address] [place] [address] 94667- 1934 07 Jun, 2018 [facility] [id number] [place] [address] 38949- 3836 07 Jun, 2018 [place] [address] 60298- 1591 06 Jun, 2018 Asthma J45.909 [place] [address] 43240- 8189 04 Jun, 2018 Type 2 diabetes mellitus with diabetic neuropathy, unspecified E11.40 ; Chronic pain disorder G89.4 and Generalized anxiety disorder F41.1 [place] [address] 31879- 5624 May, Chronic pain G89.29 and Anxiety F41.9 [place] [address] 11015- 5200 May, [place] [address] 49115- 3639 May, Encounter for Depo-Provera contraception Z30.42 [place] [address] 53734- 4498 May, [place] [id number] [place] [address] 29600- 8816 Apr, Chronic pain G89.29 [place] [id number] [place] [address] 85636- 8655 Apr, Chronic pain G89.29 and Anxiety F41.9 [place] [id number] [place] [address] 23558- 6176 Mar, HSV (herpes simplex virus) infection B00.9 ; Anxiety F41.9 and Chronic pain G89.29 [facility] [id number] [place] [address] 01247- 7541 Mar, [facility] [address] 95287- 7162 Mar, Chronic pain G89.29 [place] [id number] [place] [address] 87556- 5267 February, Chronic pain G89.29 [place] [id number] [place] [address] 3944 Jan, Chronic pain G89.29 [place] [id number] [place] [address] 12735- 1396 Jan, jail 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 Z79.4 [place] [id number] [place] [address] 99667- 2113 Jan, Encounter for Depo-Provera contraception Z30.42 [place] [address] 14958- 0901 Jan, [place] [address] 73619- 4760 Jan, Chronic pain G89.29 and Anxiety F41.9 [place] [address] 70357- 1674 Jan, [place] [address] 69827- 8194 Dec, [place] [id number] [place] [address] 25803- 7530 Dec, Gastroesophageal reflux disease without esophagitis K21.9 and Anxiety F41.9 [place] [id number] [place] [address] 62377- 2851 Dec, Essential hypertension I10 ; Mixed hyperlipidemia E78.2 ; Type 2 diabetes mellitus with diabetic neuropathy, unspecified E11.40 ; jail 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 Z79.4 ; Chronic pain G89.29 ; HSV (herpes simplex virus) infection B00.9 ; Anxiety F41.9 and Gastroesophageal reflux disease without esophagitis K21.9 [place] [id number] [place] [address] 50137- 4567 07 Dec, 2017 Chronic pain G89.29 and Chronic migraine G43.709 [place] [address] [place] [address] 15536- 0452 Nov, [place] [id number] [place] [address] 16907- 2445 Nov, Essential hypertension I10 and Chronic pain G89.29 [place] [id number] [place] [address] 10856- 2174 Nov, Chronic pain G89.29 ; Essential hypertension I10 and Type 2 diabetes mellitus without complication E11.9 [place] [id number] [place] [address] 76710- 5389 Oct, Chronic pain G89.29 [place] [address] 32135- 8715 Oct, [place] [id number] [place] [address] 14284- 3437 Sep, Type 2 diabetes mellitus without complication E11.9 ; Essential hypertension I10 ; terminal carman (current) use of insulin Z79.4 ; Chronic migraine G43.709 ; Chronic pain G89.29 and Acute non-recurrent maxillary sinusitis J01.00 [place] [id number] [place] [address] 86433- 7990 Sep, Encounter for Depo-Provera contraception Z30.42 [place] [id number] [place] [address] 86258- 1055 Sep, Chronic pain G89.29 and Radiculopathy of lumbar region M54.16 [place] [id number] [place] [address] 92998- 8841 Sep, [place] [address] 64990- 2875 Sep, [place] [id number] [place] [address] 92501- 7282 Aug, Type 2 diabetes mellitus without complication E11.9 [place] [address], [place] [address] Aug, [facility] [id number] [place] [address] 47602- 3568 Aug, Radiculopathy of lumbar region M54.16 and Chronic pain G89.29 [facility] [address] [place] [address] 55157- 6941 Aug, Type 2 diabetes mellitus without complication E11.9 [facility] [id number] [place] [address] 12709- 8513 Aug, Type 2 diabetes mellitus without complication E11.9 [facility] [id number] [place] [address] 20685- 4871 Jul, Type 2 diabetes mellitus without complication E11.9 [facility] [id number] [place] [address] 67793- 7801 Jul, [facility] [id number] [place] [address] 82595- 4590 Jul, Chronic pain G89.29 [facility] [id number] [place] [address] 18806- 0536 Jul, [facility] [address] [place] [address] 23239- 3544 Jul, [facility] [address], [place] [address]- 2563 Jul, Type 2 diabetes mellitus without complication E11.9 [facility] [address], [place] [address]- 0602 Jul, [facility] [id number] [place] [address] 23881- 5883 Jul, Type 2 diabetes mellitus without complication E11.9 [facility] [address], [place] [address]- 0880 Jul, [facility] [id number] [place] [address] 70004- 6158 Jul, [facility] [id number] [place] [address] 49674- 6749 Jul, [place] [address] 42325- 5678 Jun, Type 2 diabetes mellitus without complication E11.9 [place] [address] 11346- 6458 Jun, Chronic migraine G43.709 ; Type 2 diabetes mellitus without complication E11.9 ; Calculus of right kidney N20.0 ; Yeast dermatitis B37.2 and HSV (herpes simplex virus) infection B00.9 [place] [address] 80262- 1399 Jun, Type 2 diabetes mellitus without complication E11.9 [place] [address] 27425- 3323 Jun, [place] [address] 03458- 0335 Jun, Radiculopathy of lumbar region M54.16 and Chronic pain G89.29 [place] [id number] [place] [address] 14582- 8240 Jun, Encounter for Depo-Provera contraception Z30.42 [place] [id number] [place] [address] 99859- 1883 Jun, Type 2 diabetes mellitus without complication E11.9 [place] [id number] [place] [address] 19123- 4462 Jun, [facility] [address] 34567 -3613 May, Acute nasopharyngitis (common cold) J00 [facility] [id number] [place] [address] 34880- 2240 May, Chronic pain G89.29 [place] [address] [place] [address]- 6671 May, Headache following lumbar puncture G97.1 [place] [address] 35323- 0478 May, Radiculopathy of lumbar region M54.16 [place] [address] 33065- 0688 Apr, [place] [address] 08438- 5944 Apr, Type 2 diabetes mellitus without complication E11.9 ; Chronic pain G89.29 ; Essential hypertension I10 ; Radiculopathy of lumbar region M54.16 ; Spinal stenosis, lumbar region M48.06 ; Gastroesophageal reflux disease without esophagitis K21.9 ; HSV (herpes simplex virus) infection B00.9 ; Mixed hyperlipidemia E78.2 ; Anxiety F41.9 and Asthma J45.[address] 78292- 6634 Apr, Encounter for Depo-Provera contraception Z30.[address] 76533- 5544 Apr, Chronic pain G89.29 and Anxiety F41.9 [address] [place] [id number] [place] [address] 74250- 4261 Mar, [place] [address] 25962- 5251 Mar, [place] [id number] [place] [address] 32617- 5987 Mar, Mixed hyperlipidemia E78.2 [place] [address] 95005- 5921 Mar, Type 2 diabetes mellitus without complication E11.9 ; Chronic pain G89.29 ; Essential hypertension I10 ; Radiculopathy of lumbar region M54.16 ; Spinal stenosis, lumbar region M48.06 ; Gastroesophageal reflux disease without esophagitis K21.9 ; HSV (herpes simplex virus) infection B00.9 ; Mixed hyperlipidemia E78.2 and Anxiety F41.9 [place] [id number] [place] [address] 19134- 1726 Mar, [facility] [id number] [place] [address] 97664- 8100 Mar, [place] [id number] [place] [address] 02258- 8911 Mar, [facility] [id number] [place] [address] 38360- 7361 February, Chronic pain G89.29 [place] [id number] [place] [address] 63341- 9944 February, [facility] [id number] [place] [address] 50671- 0494 Jan, Chronic pain G89.29 [place] [id number] [place] [address] 97407- 5189 Jan, Type 2 diabetes mellitus without complication E11.9 [place] [id number] [place] [address] 28904- 4327 Jan, [facility] [id number] [place] [address] 90029- 2859 Jan, [place] [id number] [place] [address] 69323- 3200 Jan, [facility] [id number] [place] [address] 51654- 2909 Jan, Type 2 diabetes mellitus without complication [...] J01.00 and Encounter for Depo-Provera contraception Z30.42 [place] [address] [place] [address] 26780- 0764 Dec, Chronic pain G89.29 [place] [id number] [place] [address] 71534- 7892 Dec, Abnormal ankle brachial index (BERNARDINO) R68.89 [place] [address] 48713- 0301 Dec, [place] [id number] [place] [address] 69393- 8560 Dec, Routine gynecological examination Z01.419 ; Chronic [...] virus) infection B00.9 and Allergic rhinitis 477.9 [place] [id number] [place] [address] 13063- 4531 28 Nov, 2016 Chronic pain G89.29 [place] [id number] [place] [address] 68095- 3924 02 Nov, 2016 Chronic pain G89.29 ; [...] mucoid otitis media of both ears H65.113 [place] [address] [place] [address] 91886- 0328 Oct, [place] [id number] [place] [address] 92886- 0836 Oct, Chronic pain G89.29 [place] [id number] [place] [address] 57821- 6269 Oct, Chronic pain G89.29 [place] [id number] [place] [address] 49154- 4572 Sep, Chronic pain G89.29 ; Type 2 diabetes mellitus without complication E11.9 ; Essential hypertension I10 ; Radiculopathy of lumbar region M54.16 ; Spinal stenosis, lumbar region M48.06 ; Gastroesophageal reflux disease without esophagitis K21.9 ; Encounter for surveillance of injectable contraceptive Z30.42 ; Bilateral cold feet R20.9 ; Pain of left foot M79.672 and Pain in right foot M79.671 [place] [id number] [place] [address] 27289- 2478 Sep, [place] [id number] [place] [address] 92470- 0523 Aug, [place] [id number] [place] [address] 51481- 8761 Aug, [place] [id number] [place] [address] 12671- 5503 Aug, Chronic pain G89.29 ; Type 2 diabetes mellitus without complication E11.9 ; Essential hypertension I10 ; Rash and nonspecific skin eruption R21 and Upper respiratory infection, acute J06.9 [place] [id number] [place] [address] 40372- 3046 Aug, [place] [id number] [place] [address] 34864- 0416 Aug, [place] [address] 76860- 2838 Jul, [place] [id number] [place] [address] 21764- 5503 Jul, Dysuria R30.0 ; Encounter for Depo-Provera contraception Z30.42 ; Herpes simplex B00.9 ; Nausea & vomiting R11.2 and Asthma J45.909 [facility] [id number] [place] [address] 39230- 2544 21 Jun, 2016 Dysuria R30.0 [facility] [id number] [place] [address] 88260- 9302 19 Jun, 2016 Dysuria R30.0 [facility] [address] 67663- 3753 15 Jun, 2016 [facility] [address] 51459- 6581 13 Jun, 2016 [place] [address] 36950- 7201 May, [place] [address] 06660- 5758 May, [place] [address] 33261- 5957 May, Chronic pain G89.29 ; Essential hypertension I10 ; Type 2 diabetes mellitus without complication E11.9 ; Edema of both feet R60.0 and Rash and nonspecific skin eruption R21 [place] [id number] [place] [address] 52259- 6067 Apr, [facility] [id number] [place] [address] 31071- 4617 Mar, Carpal tunnel syndrome, left upper limb G56.02 and Carpal tunnel syndrome, right upper limb G56.01 [place] [id number] [place] [address] 79462- 9705 Mar, [place] [address] 70576- 7390 Mar, Encounter for Depo-Provera contraception Z30.42 [facility] [id number] [place] [address] 55811- 4155 February, [place] [id number] [place] [address] 43882- 5179 February, [place] [address] 52540- 3256 February, Chronic pain G89.29 ; Essential hypertension I10 ; Type 2 diabetes mellitus without complication E11.9 ; HSV (herpes simplex virus) infection B00.9 ; Anxiety F41.9 ; Hypersomnia G47.10 ; Tobacco abuse Z72.0 ; Hand pain, left M79.642 ; Hand pain, right M79.641 ; Left foot pain M79.672 and Heart palpitations R00.2 [place] [address] 61546- 6343 Jan, [place] [address] 93190- 4567 Jan, [place] [address] 36424- 9500 Jan, [place] [address] 65548- 1225 Jan, [address] 52025- 1427 Jan, Upper respiratory infection J06.9 and Type 2 diabetes mellitus without complication E11.9 [place] [id number] [place] [address] 56240- 1506 Dec, [place] [address] 71730- 8520 Dec, Chronic pain G89.29 ; Essential hypertension I10 ; Type 2 diabetes mellitus without complication E11.9 ; HSV (herpes simplex virus) infection B00.9 ; Anxiety F41.9 ; Upper respiratory infection J06.9 ; Hypersomnia G47.10 and Tobacco abuse Z72.0 [address] [id number] [place] [address] 88449- 5197 17 Dec, 2015 Encounter for Depo-Provera contraception Z30.42 [place] [address] [place] [address] 76492- 1211 Dec, [place] [id number] [place] [address] 94106- 5316 Dec, Chronic pain G89.29 ; Sinusitis J32.9 ; Snoring R06.83 and Daytime hypersomnia G47.19 [place] [id number] [place] [address] 20046- 7160 Nov, HSV (herpes simplex virus) infection B00.9 ; Encounter for Papanicolaou smear for cervical cancer screening Z12.4 ; Screening for STD sexually transmitted disease Z11.3 and Bartholin's gland cyst N75.0 [place] [address] 63644- 1635 Nov, [place] [address] 55823- 6069 Nov, [place] [address] 96072- 4195 Nov, Essential hypertension I10 ; Type 2 diabetes mellitus without complication E11.9 ; HSV (herpes simplex virus) infection B00.9 ; Spinal stenosis, lumbar region M48.06 and Vaginal yeast infection B37.3 [place] [id number] [place] [address] 04222- 4751 Nov, [place] [id number] [place] [address] 45335- 9942 Nov, [place] [id number] [place] [address] 33727- 4705 Oct, [place] [address] 95723- 1523 Oct, HSV (herpes simplex virus) infection B00.9 ; Yeast infection B37.9 ; Change in bowel habit R19.4 ; Nausea & vomiting R11.2 and Gastroesophageal reflux disease without esophagitis K21.9 [place] [id number] [place] [address] 67935- 9335 Oct, [place] [id number] [place] [address] 26443- 0711 Oct, Type 2 diabetes mellitus without complication E11.9 ; Essential hypertension I10 and Acute maxillary sinusitis, recurrence not specified J01.00 [place] [address] 14772- 9385 Oct, [place] [address] 38341- 7318 Oct, [address] 26036- 8539 Oct, Exposure to head lice Z20.7 ; Blood glucose abnormal R73.09 ; Boil of buttock L02.32 and Type 2 diabetes mellitus without complication E11.[address] 00382- 8794 Oct, [place] [address] 88261- 3459 Sep, [address] 45943- 3281 Sep, [address] 65770- 2838 Aug, Encounter for Depo-Provera contraception Z30.[address] 60360- 2869 Aug, Anxiety F41.9 ; Spinal stenosis, lumbar region M48.06 ; Radiculopathy of lumbar region M54.16 ; Asthma J45.909 ; GERD (gastroesophageal reflux disease) K21.9 ; Essential hypertension I10 and Long-term use of high- risk medication Z79.899 [place] [id number] [place] [address] 50276- 7205 Jul, [address] 11355- 1458 Jun, Hemorrhoid 455.6 [place] [id number] [place] [address] 77458- 7051 Jun, [place] [address] 139040- 3235 Jun, Anxiety 300.00 ; Asthma 493.90 ; Hyperhidrosis 705.21 ; Chest discomfort 786.59 and Upper respiratory infection 465.[address] 55868- 3744 May, Encounter for Depo-Provera contraception V25.[address] 55602- 6135 May, [address] 80922- 9066 May, [address] 70911- 4823 May, Spinal stenosis of lumbar region with radiculopathy 724.02 ; Bulging of intervertebral disc between L4 and L5 722.10 ; GERD ( gastroesophageal reflux disease) 530.81 ; Chronic pain 338.29 ; Declining mobility 799.89 and Epigastric pain 789.06 [place] [id number] [place] [address] 39891- 9374 Apr, [address] 13957- 9923 Apr, Nausea 787.02 and Heart burn 787.1 [place] [id number] [place] [address] 75841- 8200 Mar, Lumbago 724.2 ; Vitamin D deficiency 268.9 ; Anxiety 300.00 ; Allergic rhinitis 477.9 and Contraceptive surveillance V25.40 [place] [id number] [place] [address] 45569- 6108 February, 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 ; Chronic pain 338.29 and Vaginal discharge 623.5 [facility] [place] [facility] [address] [id number] [place] [address]- 9622 February, [facility] [place] [facility] [address] [id number] [place] [address]- 0716 February, [facility] [place] [facility] [address] [id number] [place] [address]- 8493 Jan, [facility] [place] [facility] [address] [id number], [place] [address]- 6820 Jan, [facility] [place] [facility] [address] [id number] [place] [address]- 2337 Dec, [facility] [place] [facility] [address] [id number] [place] [address]- 5587 Dec, [facility] [place] [facility] [address] [facility] [id number] [place] [address]- 8683 Dec, [facility] [place] [facility] [address] [id number], [place] [address]- 9612 Dec, [facility] [place] [facility] [address] [id number] [place] [address]- 2356 Dec, [facility] [place] [facility] [address] [facility] [id number], [place] [address]- 9205 Dec, [facility] [place] [facility] [address] [id number], [place] [address]- 0511 Dec, [facility] [place] [facility] [address] [id number], [place] [address]- 5172 Dec, [facility] [place] [facility] [address] [id number], [place] [address]- 8717 Dec, [facility] [place] [facility] [address] [id number], [place] [address]- 6291 Dec, [facility] [place] [facility] [address] [facility] [id number], [place] [address]- 9631 Dec, [facility] [place] [facility] [address] [id number] [place] [address]- 3260 Dec, [facility] [place] [facility] [address] [facility] [id number] [place] [address] Nov, 2014 [facility] [place] [facility] [address] [facility] [id number] [place] [address] Nov, 2014 [facility] [place] [facility] [address] [facility] [id number] [place] [address] 24 Nov, 2014 [facility] [place] [facility] [address] [facility] [id number] [place] [address] 24 Nov, 2014 [facility] [place] [facility] [address] [facility] [id number] [place] [address] 23 Nov, 2014 [facility] [place] [facility] [address] [facility] [id number] [place] [address] 23 Nov, 2014 [facility] [place] [facility] [address] [id number] [place] [address] 16 Nov, 2014 [facility] [place] [facility] [address] [facility] [id number] [place] [address] 16 Nov, 2014 [facility] [place] [facility] [address] [id number] [place] [address] 13 Nov, 2014 [facility] [place] [facility] [address] [id number] [address] 13 Nov, 2014 [facility] [place] [facility] [address] [facility] [id number], [place] [address] 13 Nov, 2014 [facility] [place] [facility] [address] [facility] [id number] [place] [address] 13 Nov, 2014 [facility] [place] [facility] [address] [facility] [id number] [place] [address] 13 Nov, 2014 [facility] [place] [facility] [address] [facility] [id number] [place] [address] 13 Nov, 2014 [facility] [place] [facility] [address] [facility] [id number], [place] [address] Nov, 2014 [facility] [place] [facility] [address] [id number] [place] [address] Nov, 2014 [facility] [place] [facility] [address] [id number] [place] [address] Nov, 2014 [facility] [place] [facility] [address] [facility] [id number] [place] [address] Nov, 2014 [facility] [place] [facility] [address] [id number] [place] [address] 4729 Nov, 2014 [facility] [place] [facility] [address] [id number] [place] [address] 0446 Nov, 2014 [facility] [place] [facility] [address] [facility] [id number] [place] [address] 5680 Nov, 2014 [facility] [place] [facility] [address] [facility] [id number] [place] [address]- 4876 Nov, 2014 [facility] [place] [facility] [address] [facility] [id number] [place] [address] 6409 Nov, [facility] [place] [facility] [address] [facility] [id number] [place] [address] 4898 Oct, [facility] [place] [facility] [address] [facility] [id number] [place] [address]- 4115 Oct, [facility] [place] [facility] [address] [facility] [id number] [place] [address]- 4988 Oct, [facility] [place] [facility] [address] [facility] [id number] [place] [address] 6932 Oct, [facility] [place] [facility] [address] [id number] [place] [address]- 1745 Oct, [facility] [place] [facility] [address] [facility] [id number] [place] [address]- 8510 Oct, [facility] [place] [facility] [address] [facility] [id number] [place] [address]- 5114 Oct, [facility] [place] [facility] [address] [id number] [place] [address]- 4793 Oct, [facility] [place] [facility] [address] [id number] [place] [address]- 6296 Oct, [facility] [place] [facility] [address] [id number] [place] [address]- 5006 Oct, [facility] [place] [facility] [address] [id number] [place] [address]- 5326 Oct, [facility] [place] [facility] [address] [id number] [place] [address]- 5899 Oct, [facility] [place] [facility] [address] [id number] [place] [address]- 8790 Oct, [facility] [place] [facility] [address] [id number] [place] [address]- 1919 Oct, [facility] [place] [facility] [address] [id number] [place] [address]- 7247 Oct, [facility] [place] [facility] [address] [id number] [place] [address]- 3173 Oct, [facility] [place] [facility] [address] [id number] [place] [address]- 5660 Oct, [facility] [place] [facility] [address] [id number] [place] [address]- 7693 Oct, [facility] [place] [facility] [address] [id number], [place] [address] 8819 Oct, [facility] [place] [facility] [address] [id number] [place] [address]- 2198 Oct, [facility] [place] [facility] [address] [id number] [place] [address]- 7119 Oct, [facility] [place] [facility] [address] [id number] [place] [address]- 0144 Sep, [facility] [place] [facility] [address] [id number], [place] [address] 29 Sep, 2014 [facility] [place] [facility] [address] [id number] [place] [address]- 0045 18 Sep, 2014 [facility] [place] [facility] [address] [id number] [place] 18 Sep, 2014 [facility] [place] [facility] [address] [id number] [place] [address]- 6436 17 Sep, 2014 [facility] [place] [facility] [address] [id number] [place] [address]- 9819 17 Sep, 2014 [facility] [place] [facility] [address] [id number] [place] [address]- 0454 15 Sep, 2014 [facility] [place] [facility] [address] [id number] [place] [address]- 8432 15 Sep, 2014 [facility] [place] [facility] [address] [id number] [place] [address]- 4712 12 Sep, 2014 [facility] [place] [facility] [address] [id number] [place] [address]- 3985 12 Sep, 2014 [facility] [place] [facility] [address] [id number] [place] [address]- 7595 11 Sep, 2014 [facility] [place] [facility] [address] [id number] [place] [address]- 8565 11 Sep, 2014 [facility] [place] [facility] [address] [id number] [place] [address]- 1511 Sep, [facility] [place] [facility] [address] [id number] [place] [address]- 1463 11 Sep, 2014 [facility] [place] [facility] [address] [id number] [place] [address]- 7051 11 Sep, 2014 [facility] [place] [facility] [address] [id number] [place] [address]- 7250 11 Sep, 2014 [facility] [place] [facility] [address] [id number] [place] [address]- 2597 10 Sep, 2014 [facility] [place] [facility] [address] [id number] [place] [address]- 3911 Sep, [facility] [place] [facility] [address] [id number] [place] [address]- 4626 Sep, [facility] [place] [facility] [address] [id number] [place] [address]- 8323 Sep, [facility] [place] [facility] [address] [id number] [place] [address]- 1276 Aug, [facility] [place] [facility] [address] [id number] [place] [address]- 3047 Aug, [facility] [place] [facility] [address] [id number] [place] [address]- 3261 Aug, [facility] [place] [facility] [address] [id number] [place] [address]- 0033 Aug, [facility] [place] [facility] [address] [id number] [place] [address]- 8073 Aug, [facility] [place] [facility] [address] [id number] [place] [address]- 8653 Aug, [facility] [place] [facility] [address] [id number] [place] [address]- 1131 Aug, [facility] [place] [facility] [address] [id number] [place] [address]- 6798 Aug, [facility] [place] [facility] [address] [id number] [place] [address]- 9189 Aug, [facility] [place] [facility] [address] [id number] [place] [address]- 5779 Jul, [facility] [place] [facility] [address] [id number] [place] [address]- 2129 Jul, [facility] [place] [facility] [address] [id number] [place] [address]- 6597 Jul, [facility] [place] [facility] [address] [id number] [place] [address]- 8342 Jul, [facility] [place] [facility] [address] [id number] [place] [address]- 0390 16 Jul, 2014 [facility] [place] [facility] [address] [id number] [place] [address]- 8672 16 Jul, 2014 [facility] [place] [facility] [address] [id number] [place] [address]- 2187 13 Jul, 2014 [facility] [place] [facility] [address] [id number] [place] [address]- 1394 13 Jul, 2014 [facility] [place] [facility] [address] [id number] [place] [address]- 6064 10 Jul, 2014 [facility] [place] [facility] [address] [id number] [place] [address]- 1191 10 Jul, 2014 [facility] [place] [facility] [address] [id number] [place] [address]- 4908 10 Jul, 2014 [facility] [place] [facility] [address] [id number] [place] [address]- 8623 10 Jul, 2014 [facility] [place] [facility] [address] [id number] [place] [address]- 2989 07 Jul, 2014 [facility] [place] [facility] [address] [id number], [place] [address]- 9387 07 Jul, 2014 [facility] [place] [facility] [address] [id number], [place] [address]- 5542 30 Jun, 2013 [facility] [place] [facility] [address] [id number], [place] [address]- 5388 30 Sep, 2013 [facility] [place] [facility] [address] [id number] [place] [address]- 5104 25 Jun, 2013 [facility] [place] [facility] [address] [id number], [place] [address]- 9491 25 Jun, 2013 [facility] [place] [facility] [address] [id number] [place] [address]- 8250 25 Jun, 2013 [facility] [place] [facility] [address] [id number] [place] [address]- 9987 25 Sep, 2013 [facility] [place] [facility] [address] [id number] [place] [address] 2546 24 Sep, 2013 [facility] [place] [facility] [address] [id number] [place] [address] 2546 24 Sep, 2013 [facility] [place] [facility] [address] [id number] [place] [address] 2546 22 Sep, 2013 [facility] [place] [facility] [address] [id number] [place] [address] 2548 22 Sep, 2013 [facility] [place] [facility] [address] [id number] [place] [address]- 1991 17 Sep, 2013 [facility] [place] [facility] [address] [id number] [place] [address]- 5656 17 Sep, 2013 [facility] [place] [facility] [address] [id number] [place] [address]- 1488 16 Sep, 2013 [facility] [place] [facility] [address] [id number] [place] [address]- 2542 16 Sep, 2013 [facility] [place] [facility] [address] [id number] [place] [address]- 1722 15 Sep, 2013 [facility] [place] [facility] [address] [id number] [place] [address]- 2540 15 Sep, 2013 [facility] [place] [facility] [address] [id number] [place] [address] 2545 12 Sep, 2013 [facility] [place] [facility] [address] [id number] [place] [address] 254 12 Sep, 2013 [facility] [place] [facility] [address] [id number] [place] [address] 2546 11 Sep, 2013 [facility] [place] [facility] [address] [id number] [place] [address]- 2546 11 Sep, 2013 [facility] [place] [facility] [address] [id number] [place] [address]- 2541 11 Sep, 2013 [facility] [place] [facility] [address] [id number] [place] [address]- 0961 Jun, 2013 [facility] [place] [facility] [address] [id number] [place] [address]- 8293 Jun, [facility] [place] [facility] [address] [id number] [place] [address]- 6067 Jun, [facility] [place] [facility] [address] [id number] [place] [address]- 0960 Jun, [facility] [place] [facility] [address] [id number] [place] [address]- 3086 Jun, [facility] [place] [facility] [address] [id number] [place] [address]- 8928 May, [facility] [place] [facility] [address] [id number] [place] [address]- 0451 May, [facility] [place] [facility] [address] [id number] [place] [address]- 0422 May, [facility] [place] [facility] [address] [id number] [place] [address]- 4190 May, [facility] [place] [facility] [address] [id number] [place] [address]- 3913 May, [facility] [place] [facility] [address] [id number] [place] [address]- 8262 May, [facility] [place] [facility] [address] [id number] [place] [address]- 2355 May, [facility] [place] [facility] [address] [id number] [place] [address]- 1424 May, [facility] [place] [facility] [address] [id number] [place] [address]- 9679 May, [facility] [place] [facility] [address] [id number] [place] [address]- 4797 May, [facility] [place] [facility] [address] [id number] [place] [address]- 9336 May, [facility] [place] [facility] [address] [id number] [place] [address]- 0373 May, [facility] [place] [facility] [address] [id number] [place] [address]- 3603 May, [facility] [place] [facility] [address] [id number] [place] [address]- 2413 Apr, [facility] [place] [facility] [address] [id number] [place] [address]- 3399 Apr, [facility] [place] [facility] [address] [id number] [place] [address]- 8504 Apr, [facility] [place] [facility] [address] [id number] [place] [address]- 6204 Apr, [facility] [place] [facility] [address] [id number] [place] [address]- 7263 Apr, [facility] [place] [facility] [address] [id number] [place] [address]- 3847 Mar, [facility] [place] [facility] [address] [id number] [place] [address]- 2772 Mar, [facility] [place] [facility] [address] [id number] [place] [address]- 7385 Mar, [facility] [place] [facility] [address] [id number] [place] [address]- 5983 February, [facility] [place] [facility] [address] [id number] [place] [address]- 0286 February, [facility] [place] [facility] [address] [id number] [place] [address]- 0989 February, [facility] [place] [facility] [address] [id number] [place] [address]- 5844 February, [facility] [place] [facility] [address] [id number] [place] [address]- 5889 February, [facility] [place] [facility] [address] [id number] [place] [address]- 4099 February, [facility] [address] [id number] [place] [address]- 5113 February, [facility] [place] [facility] [address] [id number] [place] [address]- 7666 February, [facility] [place] [facility] [address] [id number] [place] [address]- 2315 February, [facility] [place] [facility] [address] [id number] [place] [address]- 0152 Jan, [facility] [place] [facility] [address] [id number] [place] [address]- 1846 Jan, [facility] [place] [facility] [address] [id number] [place] [address]- 9019 Jan, [facility] [place] [facility] [address] [id number] [place] [address]- 9172 Jan, [facility] [place] [facility] [address] [id number] [place] [address]- 1968 Jan, [facility] [place] [facility] [address] [id number] [place] [address]- 2499 Dec, [facility] [place] [facility] [address] [id number] [place] [address]- 1611 Dec, [facility] [place] [facility] [address] [id number] [place] [address]- 7961 Dec, [facility] [place] [facility] [address] [id number] [place] [address]- 4793 Dec, [facility] [place] [facility] [address] [id number] [place] [address]- 0689 Dec, [facility] [place] [facility] [address] [id number] [place] [address]- 9278 Nov, [facility] [place] [facility] [address] [id number] [place] [address]- 9444 Nov, [facility] [place] [facility] [address] [id number] [place] [address]- 8587 Nov, [facility] [place] [facility] [address] [id number] [place] [address]- 7883 Nov, [facility] [place] [facility] [address] [id number] [place] [address]- 4057 Oct, [facility] [place] [facility] [address] [id number] [place] [address]- 1723 Oct, [facility] [place] [facility] [address] [id number] [place] [address]- 1775 Oct, [facility] [place] [facility] [address] [id number] [place] [address]- 4373 Oct, [facility] [place] [facility] [address] [id number] [place] [address]- 5623 Oct, [facility] [place] [facility] [address] [id number] [place] [address]- 4722 Oct, [facility] [place] [facility] [address] [id number] [place] [address]- 6094 Oct, [facility] [place] [facility] [address] [id number] [place] [address]- 7986 Oct, [facility] [place] [facility] [address] [id number] [place] [address]- 6047 Oct, [facility] [place] [facility] [address] [id number], [place] [address]- 2337 Oct, [facility] [place] [facility] [address] [id number] [place] [address]- 9419 Aug, [facility] [place] [facility] [address] [id number] [place] [address]- 8184 Aug, [facility] [place] [facility] [address] [id number] [place] [address]- 5789 Jul, [facility] [place] [facility] [address] [id number] [place] [address]- 6842 Jul, [facility] [address] [id number] [place] [address]- 8831 Jul, [facility] [place] [facility] [address] [id number] [place] [address]- 9278 Jul, [facility] [place] [facility] [address] [id number] [place] [address]- 3835 Jul, [facility] [place] [facility] [address] [id number] [place] [address]- 0217 Jul, [facility] [place] [facility] [address] [id number] [place] [address]- 5859 Apr, [facility] [place] [facility] [address] [id number] [place] [address]- 1309 Dec, [facility] [place] [facility] [address] [id number] [place] [address]- 5535 Nov, [facility] [place] [facility] [address] [id number] [place] [address]- 0393 Nov, [facility] [place] [facility] [address] [id number] [place] [address]- 5158 Nov, [facility] [place] [facility] [address] [facility] [id number] [place] [address]- 4948 Oct, [facility] [place] [facility] [address] [id number] [place] [address]- 7460 Sep, [facility] [place] [facility] [address] [id number] [place] [address]- 6776 Sep, [facility] [place] [facility] [address] [id number] [place] [address]- 8589 Sep, [facility] [place] [facility] [address] [id number] [place] 8738 Sep, [facility] [place] [facility] [address] [id number] [place] [address]- 3228 Aug, [facility] [place] [facility] [address] [id number] [place] [address]- 0604 13 Aug, 2012 [facility] [place] [facility] [address] [id number] [place] [address]- 7069 Jul, [facility] [place] [facility] [address] [id number] [place] [address]- 9088 Jul, [facility] [place] [facility] [address] [id number] [place] [address]- 0771 28 Jun, 2012 [facility] [place] [facility] [address] [id number] [place] [address]- 8261 26 Jun, 2012 [facility] [place] [facility] [address] [id number] [place] [address]- 7051 24 Jun, 2012 [facility] [place] [facility] [address] [id number] [place] [address]- 9474 24 Jun, 2012 [facility] [place] [facility] [address] [id number] [place] [address]- 4204 Jun, [facility] [place] [facility] [address] [id number] [place] [address]- 0514 Apr, [facility] [place] [facility] [address] [id number] [place] [address]- 5963 Apr, [facility] [place] [facility] [address] [id number] [place] [address]- 9755 Apr, [facility] [place] [facility] [address] [id number] [place] [address]- 6331 Mar, [facility] [place] [facility] [address] [id number] [place] [address]- 2420 Mar, [facility] [place] [facility] [address] [id number] [place] [address]- 3839 Mar, [facility] [place] [facility] [address] [id number] [place] [address]- 5828 February, [facility] [place] [facility] [address] [id number], [place] [address]- 6632 18 Jan, 2012 [facility] [place] [facility] [address] [id number] [place] [address]- 1734 Dec, [facility] [place] [facility] [address] [id number] [place] [address]- 4586 21 Dec, 2011 [facility] [place] [facility] [address] [id number] [place] [address]- 6783 20 Dec, 2011 [facility] [place] [facility] [address] [id number] [place] [address]- 2113 19 Dec, 2011 [facility] [place] [facility] [address] [id number] [place] [address]- 0298 Dec, [facility] [place] [facility] [address] [id number] [place] [address]- 4532 14 Nov, 2011 [facility] [place] [facility] [address] [facility] [id number] [place] [address] 13 Nov, 2011 [facility] [place] [facility] [address] [id number] [place] [address] Oct, [facility] [place] [facility] [address] [facility] [id number] [place] [address] Oct, [facility] [place] [facility] [address] [facility] [id number] [place] [address] Oct, [facility] [place] [facility] [address] [id number], [place] [address] Sep, [facility] [place] [facility] [address] [id number] [place] [address] Aug, [facility] [place] [facility] [address] [id number] [place] [address] 10 Aug, 2011 [facility] [place] [facility] [address] [facility] [id number] [place] [address] 28 Jul, 2011 [facility] [place] [facility] [address] [facility] [id number] [place] [address] 24 Jul, 2011 [facility] [place] [facility] [address] [id number] [place] [address] 19 Jul, 2011 [facility] [address] [id number] [place] [address] 13 Jan, 2011 [facility] [place] [facility] [address] [id number] [place] [address] 29 Sep, 2010 [facility] [place] [facility] [address] [id number] [place] [address]46 27 Sep, 2010 [facility] [place] [facility] [address] [id number] [place] [address]44 20 Sep, 2010 [facility] [place] [facility] [address] [id number] [place] [address] 20 Sep, 2010 [facility] [place] [facility] [address] [id number] [place] [address] 06 Sep, 2010 [facility] [place] [facility] [address] [id number] [place] [address] 16 Aug, 2010 [facility] [place] [facility] [address] [id number] [place] [address] 16 Aug, 2010 [facility] [place] [facility] [address] [id number] [place] [address] 08 Aug, 2010 [facility] [place] [facility] [address] [facility] [id number] [place] [address] 19 Jul, 2010 [facility] [place] [facility] [address] [id number] [place] [address]79 19 Jul, 2010 [facility] [place] [facility] [address] [id number] [place] [address] 12 Jul, 2010 [facility] [place] [facility] [address] [id number] [place] [address] 11 May, 2010 [facility] [place] [facility] [address] [id number] [place] [address]46 13 Apr, 2010 [facility] [place] [facility] [address] [id number] [place] [address] Dec, [facility] [address] [facility] [id number], [place] [address] Sep, [facility] [address] [id number], [place] [address] Sep, [facility] [address] [id number], [place] [address] Aug, [facility] [id number], [place] [address] Aug, [facility] [address] [facility] [id number], [place] [address] Jul, [facility] [address] [id number], [place] [address] Mar, IMMUNIZATIONS No Known Immunizations SOCIAL HISTORY Never Assessed REASON FOR VISIT Refill PLAN OF CARE VITAL SIGNS MEDICATIONS Medication Instructions Dosage Frequency Start Date End Date Duration Status ProAir HFA 108 (90 Base) MCG/ACT Inhalation every 4 hrs prn 2 puffs as needed Jun, 30 days Active Flonase 50 mcg/act Nasally Once a day 1 sprays by Nasal route 2 times per day in each nostril 24h 30 days Active RESULTS No Results [...] History Via [facility] and transferred to [facility] 2016
--- OUTSIDE RECORDS SUMMARY | 2018-10-08 20:28 | XMS REPORT ---
Author Author REIDVALENTINO Mcelroy [facility] Address [address] [place] [address] Care Team Providers Care Intercell Connector Placer Name Role Phone REIDVALENTINO Mcelroy Unavailable PROBLEMS Type Condition ICD9-CM Code AES36-XY Code Onset Dates Condition Status SNOMED Code Problem HSV (herpes simplex virus) infection B00.9 Active 36281963 Problem Edema of both feet R60.0 Active 553107382 Problem Tobacco abuse Z72.0 Active 87587515 Problem Generalized anxiety disorder F41.1 Active 91091780 Problem Chronic pain disorder G89.4 Active 143977030 Problem Chronic migraine G43.709 Active 27329770 Problem Mixed hyperlipidemia E78.2 Active 420404804 Problem Type 2 diabetes mellitus with diabetic neuropathy, unspecified E11.40 Active 95059984 Problem 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 Active 431492586 Problem Anxiety F41.9 Active 85613283 Problem Radiculopathy of lumbar region M54.16 Active 813616068 Problem Bulging lumbar disc M51.26 Active 057551889 Problem Essential hypertension I10 Active 27049742 Problem Asthma J45.909 Active 113868047 Problem Chronic pain G89.29 Active 20265852 Problem Spinal stenosis, lumbar region M48.06 Active 67944133 Problem Gastroesophageal reflux disease without esophagitis K21.9 Active 560043443 ALLERGIES No Information ENCOUNTERS Encounter Location Date Diagnosis [facility] [address] [facility] [address] [id number] [address] Jun, Chronic migraine G43.709 [facility] [address] [id number] [address] 67[address] Jun, [facility] [address] [id number] [address] 0098 Jun, [facility] [id number] [place] [address] 86332- 2559 07 Jun, 2018 [place] [id number] [place] [address] 68955- 5561 06 Jun, 2018 Asthma J45.909 [facility] [id number] [place] [address] 91593- 3423 04 Jun, 2018 Type 2 diabetes mellitus with diabetic neuropathy, unspecified E11.40 ; Chronic pain disorder G89.4 and Generalized anxiety disorder F41.1 [place] [address] 73055- 3706 May, Chronic pain G89.29 and Anxiety F41.9 [place] [address] 13360- 2902 May, [place] [address] 63260- 9386 May, Encounter for Depo-Provera contraception Z30.42 [place] [address] 00186- 7461 May, [place] [address] 34358- 9867 Apr, Chronic pain G89.29 [place] [address] 09562- 4860 Apr, Chronic pain G89.29 and Anxiety F41.9 [facility] [id number] [place] [address] 20580- 2032 Mar, HSV (herpes simplex virus) infection B00.9 ; Anxiety F41.9 and Chronic pain G89.29 [place] [place] [address] 89727- 4657 Mar, [place] [address] 43828- 5343 Mar, Chronic pain G89.29 [place] [address] 46933- 3142 February, Chronic pain G89.29 [place] [address] 86018- 7229 Jan, Chronic pain G89.29 [place] [address] 21205- 1033 Jan, custodial 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 Z79.4 [place] [address] 14444- 4346 Jan, Encounter for Depo-Provera contraception Z30.42 [place] [address] 14834- 8183 Jan, [place] [address] 89208- 4776 Jan, Chronic pain G89.29 and Anxiety F41.9 [place] [address] 11699- 5038 Jan, [place] [address] 51120- 4149 Dec, [place] [address] 52488- 1810 Dec, Gastroesophageal reflux disease without esophagitis K21.9 and Anxiety F41.[address] 54274- 2764 Dec, Essential hypertension I10 ; Mixed hyperlipidemia E78.2 ; Type 2 diabetes mellitus with diabetic neuropathy, unspecified E11.40 ; 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 ; Chronic pain G89.29 ; HSV (herpes simplex virus) infection B00.9 ; Anxiety F41.9 and Gastroesophageal reflux disease without esophagitis K21.9 [place] [address] 27092- 9929 Dec, Chronic pain G89.29 and Chronic migraine G43.709 [facility] [address] 13177- 2104 Nov, [facility] [id number] [place] [address] 04718- 6243 Nov, Essential hypertension I10 and Chronic pain G89.29 [facility] [id number] [place] [address] 55616- 7307 Nov, Chronic pain G89.29 ; Essential hypertension I10 and Type 2 diabetes mellitus without complication E11.9 [facility] [id number] [place] [address] 85978- 8125 Oct, Chronic pain G89.29 [facility] [id number] [place] [address] 39793- 2361 Oct, [facility] [id number] [place] [address] 22762- 9056 Sep, Type 2 diabetes mellitus without complication E11.9 ; Essential hypertension I10 ; custodial (current) use of insulin Z79.4 ; Chronic migraine G43.709 ; Chronic pain G89.29 and Acute non-recurrent maxillary sinusitis J01.00 [facility] [id number] [place] [address] 07929- 8501 Sep, Encounter for Depo-Provera contraception Z30.42 [facility] [id number] [place] [address] 22544- 3534 Sep, Chronic pain G89.29 and Radiculopathy of lumbar region M54.16 [facility] [id number] [place] [address] 60228- 3470 Sep, [facility] [id number] [place] [address] 33035- 1913 Sep, [place] [address] 11925- 2758 Aug, Type 2 diabetes mellitus without complication E11.9 [facility] [id number] [place] [address] 00869- 0480 Aug, [facility] [address] [facility] [address] [id number] [address] 4[address] 16 Aug, 2017 Radiculopathy of lumbar region M54.16 and Chronic pain G89.29 [facility] [address] [facility] [address] [id number] [address] 2544 Aug, Type 2 diabetes mellitus without complication E11.9 [facility] [address] [facility] [address] [id number] [address] 4454 Aug, Type 2 diabetes mellitus without complication E11.9 [facility] [address] [facility] [address] [id number] [address]- 6031 Jul, Type 2 diabetes mellitus without complication E11.9 [facility] [address] [facility] [address] [id number] [address]- 6519 Jul, [facility] [address] [place] [address] 63274- 4161 Jul, Chronic pain G89.29 [facility] [address] [facility] [address] [id number] [address] 3821 Jul, [facility] [address]00565100[place] [address]- 0797 Jul, [facility] [address] [address] 5224 Jul, Type 2 diabetes mellitus without complication E11.9 [facility] [address] [address]- 7418 Jul, [facility] [address] [facility] [address] [id number] [address]- 7313 Jul, Type 2 diabetes mellitus without complication E11.9 [facility] [address] [facility] [address] [id number] [address]- 1532 Jul, [facility] [address] [facility] [address] [id number] [address]- 7402 Jul, [facility] [address] [place] [address] 10461- 0234 Jul, [facility] [id number] [place] [address] 84055- 0488 27 Jun, 2017 Type 2 diabetes mellitus without complication E11.9 [facility] [id number] [place] [address] 84381- 6641 26 Jun, 2017 Chronic migraine G43.709 ; Type 2 diabetes mellitus without complication E11.9 ; Calculus of right kidney N20.0 ; Yeast dermatitis B37.2 and HSV (herpes simplex virus) infection B00.9 [facility] [id number] [place] [address] 55858- 3107 Jun, Type 2 diabetes mellitus without complication E11.9 [facility] [id number] [place] [address] 28296- 7986 Jun, [facility] [id number] [place] [address] 13541- 7716 Jun, Radiculopathy of lumbar region M54.16 and Chronic pain G89.29 [facility] [id number] [place] [address] 32178- 1004 Jun, Encounter for Depo-Provera contraception Z30.42 [facility] [id number] [place] [address] 35134- 9459 Jun, Type 2 diabetes mellitus without complication E11.9 [facility] [id number] [place] [address] 49077- 5114 Jun, [facility] [id number] [place] [address] 50972 -7222 May, Acute nasopharyngitis (common cold) J00 [place] [id number] [place] [address] 35810- 8179 May, Chronic pain G89.29 [facility] [id number] [place] [address] 76522- 7071 May, Headache following lumbar puncture G97.1 [facility] [id number] [place] [address] 50704- 1708 May, Radiculopathy of lumbar region M54.16 [facility] [id number] [place] [address] 16221- 4116 Apr, [place] [address] 71143- 1970 Apr, Type 2 diabetes mellitus without complication E11.9 ; Chronic pain G89.29 ; Essential hypertension I10 ; Radiculopathy of lumbar region M54.16 ; Spinal stenosis, lumbar region M48.06 ; Gastroesophageal reflux disease without esophagitis K21.9 ; HSV (herpes simplex virus) infection B00.9 ; Mixed hyperlipidemia E78.2 ; Anxiety F41.9 and Asthma J45.909 [place] [place] [id number] [place] [address] 14528- 0412 Apr, Encounter for Depo-Provera contraception Z30.42 [place] [place] [id number] [place] [address] 59134- 3719 Apr, Chronic pain G89.29 and Anxiety F41.9 [place] [address] 92309- 2516 Mar, [facility] [place] [id number] [place] [address] 07278- 0826 Mar, [place] [place] [id number] [place] [address] 48058- 5655 Mar, Mixed hyperlipidemia E78.2 [place] [place] [id number] [place] [address] 12400- 5420 Mar, Type 2 diabetes mellitus without complication E11.9 ; Chronic pain G89.29 ; Essential hypertension I10 ; Radiculopathy of lumbar region M54.16 ; Spinal stenosis, lumbar region M48.06 ; Gastroesophageal reflux disease without esophagitis K21.9 ; HSV (herpes simplex virus) infection B00.9 ; Mixed hyperlipidemia E78.2 and Anxiety F41.9 [place] [address] [address]- 4530 Mar, [facility] [id number] [place] [address] 91749- 0379 Mar, [facility] [id number] [place] [address] 72842- 3679 Mar, [facility] [id number] [place] [address] 23244- 6689 February, Chronic pain G89.29 [facility] [id number] [place] [address] 52748- 5193 February, [facility] [id number] [place] [address] 33983- 0787 Jan, Chronic pain G89.29 [facility] [id number] [place] [address] 64441- 5727 Jan, Type 2 diabetes mellitus without complication E11.9 [facility] [id number] [place] [address] 75043- 8493 Jan, [facility] [id number] [place] [address] 17824- 0780 Jan, [facility] [id number] [place] [address] 34717- 3043 Jan, [facility] [id number] [place] [address] 17172- 5108 Jan, Type 2 diabetes mellitus without complication [...] contraception Z30.42 [facility] [id number] [place] [address] 44100- 7248 Dec, Chronic pain G89.29 [place] [place] [id number] [place] [address] 83123- 0722 Dec, Abnormal ankle brachial index (BERNARDINO) R68.89 [place] [id number] [place] [address] 07137- 4990 Dec, [place] [id number] [place] [address] 25533- 9635 Dec, Routine gynecological examination Z01.419 ; Chronic [...] virus) infection B00.9 and Allergic rhinitis 477.9 [place] [place] [id number] [place] [address] 34716- 3888 28 Nov, 2016 Chronic pain G89.29 [place] [place] [id number] [place] [address] 44918- 0417 02 Nov, 2016 Chronic pain G89.29 ; [...] mucoid otitis media of both ears H65.113 [place] [place] [id number] [place] [address] 49515- 8714 Oct, [place] [place] [id number] [place] [address] 97041- 3738 Oct, Chronic pain G89.29 [place] [address] 98306- 1231 Oct, Chronic pain G89.29 [place] [address] 62572- 1315 Sep, Chronic pain G89.29 ; Type 2 diabetes mellitus without complication E11.9 ; Essential hypertension I10 ; Radiculopathy of lumbar region M54.16 ; Spinal stenosis, lumbar region M48.06 ; Gastroesophageal reflux disease without esophagitis K21.9 ; Encounter for surveillance of injectable contraceptive Z30.42 ; Bilateral cold feet R20.9 ; Pain of left foot M79.672 and Pain in right foot M79.671 [place] [address] 47831- 1554 Sep, [place] [address] 52977- 3603 Aug, [place] [address] 25325- 6735 Aug, [place] [address] 07461- 8948 Aug, Chronic pain G89.29 ; Type 2 diabetes mellitus without complication E11.9 ; Essential hypertension I10 ; Rash and nonspecific skin eruption R21 and Upper respiratory infection, acute J06.9 [place] [address] 23643- 2773 Aug, [place] [address] 30183- 8904 Aug, [place] [address] 24605- 2236 Jul, [address] 59652- 3747 Jul, Dysuria R30.0 ; Encounter for Depo-Provera contraception Z30.42 ; Herpes simplex B00.9 ; Nausea & vomiting R11.2 and Asthma J45.909 [place] [address] [place] [address]- 2007 21 Jun, 2016 Dysuria R30.0 [facility] [id number] [place] [address] 23619- 7756 19 Jun, 2016 Dysuria R30.0 [facility] [id number] [place] [address] 27294- 6024 15 Jun, 2016 [facility] [address] 37611- 1305 13 Jun, 2016 [facility] [id number] [place] [address] 52015- 5789 May, [facility] [id number] [place] [address] 75390- 7059 May, [facility] [id number] [place] [address] 95763- 4025 May, Chronic pain G89.29 ; Essential hypertension I10 ; Type 2 diabetes mellitus without complication E11.9 ; Edema of both feet R60.0 and Rash and nonspecific skin eruption R21 [facility] [id number] [place] [address] 80132- 5081 Apr, [facility] [id number] [place] [address] 07101- 3219 Mar, Carpal tunnel syndrome, left upper limb G56.02 and Carpal tunnel syndrome, right upper limb G56.01 [facility] [id number] [place] [address] 93376- 9837 Mar, [facility] [id number] [place] [address] 41769- 2322 Mar, Encounter for Depo-Provera contraception Z30.42 [facility] [id number] [place] [address] 90379- 9611 February, [facility] [address] [place] [address] 88916- 4469 February, [facility] [id number] [place] [address] 88660- 3922 February, Chronic pain G89.29 ; Essential hypertension I10 ; Type 2 diabetes mellitus without complication E11.9 ; HSV (herpes simplex virus) infection B00.9 ; Anxiety F41.9 ; Hypersomnia G47.10 ; Tobacco abuse Z72.0 ; Hand pain, left M79.642 ; Hand pain, right M79.641 ; Left foot pain M79.672 and Heart palpitations R00.2 [place] [address] 53792- 8024 Jan, [place] [address] 02680- 7371 Jan, [place] [place] [id number] [place] [address] 21630- 9702 Jan, [address] 77050- 5268 Jan, [place] [place] [id number] [place] [address] 22138- 8236 Jan, Upper respiratory infection J06.9 and Type 2 diabetes mellitus without complication E11.9 [place] [id number] [place] [address] 31130- 4114 Dec, [place] [id number] [place] [address] 92074- 7150 Dec, Chronic pain G89.29 ; Essential hypertension I10 ; Type 2 diabetes mellitus without complication E11.9 ; HSV (herpes simplex virus) infection B00.9 ; Anxiety F41.9 ; Upper respiratory infection J06.9 ; Hypersomnia G47.10 and Tobacco abuse Z72.[address] 68320- 4165 17 Dec, 2015 Encounter for Depo-Provera contraception Z30.42 [place] [id number] [place] [address] 80462- 3023 Dec, [place] [id number] [place] [address] 27047- 4277 Dec, Chronic pain G89.29 ; Sinusitis J32.9 ; Snoring R06.83 and Daytime hypersomnia G47.19 [place] [place] [id number] [place] [address] 47500- 1020 Nov, HSV (herpes simplex virus) infection B00.9 ; Encounter for Papanicolaou smear for cervical cancer screening Z12.4 ; Screening for STD sexually transmitted disease Z11.3 and Bartholin's gland cyst N75.0 [place] [place] [id number] [place] [address] 18751- 2528 Nov, [place] [address] 23256- 0686 Nov, [place] [place] [id number] [place] [address] 85798- 0567 Nov, Essential hypertension I10 ; Type 2 diabetes mellitus without complication E11.9 ; HSV (herpes simplex virus) infection B00.9 ; Spinal stenosis, lumbar region M48.06 and Vaginal yeast infection B37.3 [place] [place] [id number] [place] [address] 20386- 5241 Nov, [place] [place] [id number] [place] [address] 77057- 8600 Nov, [place] [place] [id number] [place] [address] 18533- 5918 Oct, [place] [id number] [place] [address] 30125- 5891 Oct, HSV (herpes simplex virus) infection B00.9 ; Yeast infection B37.9 ; Change in bowel habit R19.4 ; Nausea & vomiting R11.2 and Gastroesophageal reflux disease without esophagitis K21.9 [place] [place] [id number] [place] [address] 92326- 4931 Oct, [place] [address] [place] [address] 35336- 2244 Oct, Type 2 diabetes mellitus without complication E11.9 ; Essential hypertension I10 and Acute maxillary sinusitis, recurrence not specified J01.[address] 79860- 7293 Oct, [address] 72058- 3844 Oct, [address] 62774- 6948 Oct, Exposure to head lice Z20.7 ; Blood glucose abnormal R73.09 ; Boil of buttock L02.32 and Type 2 diabetes mellitus without complication E11.[address] 91239- 7264 Oct, [address] 11147- 0074 Sep, [address] 09232- 2415 Sep, [address] 98423- 6776 Aug, Encounter for Depo-Provera contraception Z30.[address] 38042- 1065 Aug, Anxiety F41.9 ; Spinal stenosis, lumbar region M48.06 ; Radiculopathy of lumbar region M54.16 ; Asthma J45.909 ; GERD (gastroesophageal reflux disease) K21.9 ; Essential hypertension I10 and Long-term use of high- risk medication Z79.[address] 09268- 2772 Jul, [address] 92146- 0475 10 Jun, 2015 [address] 83832- 0123 Jun, [place] [place] [id number] [place] [address] 48460- 9980 Jun, Anxiety 300.00 ; Asthma 493.90 ; Hyperhidrosis 705.21 ; Chest discomfort 786.59 and Upper respiratory infection 465.[address] 29275- 7051 May, Encounter for Depo-Provera contraception V25.[address] 32867- 8794 May, [address] 65366- 9109 May, [address] 59006- 0850 May, Spinal stenosis of lumbar region with radiculopathy 724.02 ; Bulging of intervertebral disc between L4 and L5 722.10 ; GERD ( gastroesophageal reflux disease) 530.81 ; Chronic pain 338.29 ; Declining mobility 799.89 and Epigastric pain 789.[address] 63086- 5848 Apr, [address] 48055- 4868 Apr, Nausea 787.02 and Heart burn 787.[address] 05836- 2581 Mar, Lumbago 724.2 ; Vitamin D deficiency 268.9 ; Anxiety 300.00 ; Allergic rhinitis 477.9 and Contraceptive surveillance V25.[address] 19177- 8180 February, 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 ; Chronic pain 338.29 and Vaginal discharge 623.[address] 44869- 1425 February, [facility] [place] [facility] [address] [id number] [place] [address]- 5663 February, [facility] [place] [facility] [address] [id number] [place] [address]- 4628 Jan, [facility] [place] [facility] [address] [id number] [place] [address]- 9460 Jan, [facility] [place] [facility] [address] [id number] [place] [address]- 9900 Dec, [facility] [place] [facility] [address] [id number] [place] [address]- 1400 Dec, [facility] [place] [facility] [address] [id number] [place] [address]- 8475 Dec, [facility] [place] [facility] [address] [id number] [place] [address]- 1276 Dec, [facility] [place] [facility] [address] [id number] [place] [address]- 9957 Dec, [facility] [place] [facility] [address] [id number] [place] [address]- 6577 Dec, [facility] [place] [facility] [address] [id number] [place] [address]- 6455 Dec, [facility] [place] [facility] [address] [id number] [place] [address]- 5761 Dec, [facility] [place] [facility] [address] [id number] [address]- 6167 Dec, [facility] [place] [facility] [address] [id number] [place] [address]- 5167 Dec, [facility] [place] [facility] [address] [id number] [place] [address]- 2547 Dec, [facility] [place] [facility] [address] [id number] [place] [address]- 6304 Dec, [facility] [place] [facility] [address] [id number] [place] [address] 27 Nov, 2014 [facility] [place] [facility] [address] [id number] [place] [address] 27 Nov, 2014 [facility] [place] [facility] [address] [id number] [place] [address] 24 Nov, 2014 [facility] [place] [facility] [address] [facility] [id number] [place] [address] 24 Nov, 2014 [facility] [place] [facility] [address] [id number] [place] [address] 23 Nov, 2014 [facility] [place] [facility] [address] [facility] [address] [id number] [place] [address] 23 Nov, 2014 [facility] [place] [facility] [address] [facility] [address] [id number] [place] [address] 16 Nov, 2014 [facility] [place] [facility] [address] [facility] [address] [id number] [place] [address] 16 Nov, 2014 [facility] [place] [facility] [address] [facility] [address] [id number] [place] [address] 13 Nov, 2014 [facility] [place] [facility] [address] [facility] [address] [id number] [address] 13 Nov, 2014 [facility] [place] [facility] [address] [facility] [address] [id number] [address] 13 Nov, 2014 [facility] [place] [facility] [address] [facility] [address] [id number] [place] [address] 13 Nov, 2014 [facility] [place] [facility] [address] [facility] [address] [id number] [place] [address] 4551 13 Nov, 2014 [facility] [place] [facility] [address] [facility] [address] [id number] [address] 57[address] 13 Nov, 2014 [facility] [place] [facility] [address] [facility] [address] [id number] [address] 4667 13 Nov, 2014 [facility] [place] [facility] [address] [facility] [address] [id number] [place] [address] 13 Nov, 2014 [facility] [place] [facility] [address] [id number] [place] [address]- 9676 Nov, 2014 [facility] [place] [facility] [address] [id number] [place] [address]- 5356 Nov, 2014 [facility] [place] [facility] [address] [facility] [address] [id number] [place] [address]- 0456 Nov, 2014 [facility] [place] [facility] [address] [id number] [place] [address]- 2542 Nov, 2014 [facility] [place] [facility] [address] [id number] [place] [address]- 6694 Nov, 2014 [facility] [place] [facility] [address] [facility] [address] [id number] [place] [address]- 9416 Nov, 2014 [facility] [place] [facility] [address] [id number] [place] [address]- 9484 Nov, 2014 [facility] [place] [facility] [address] [facility] 2001 [id number] [place] [address]- 3761 Oct, [facility] [place] [facility] [address] [id number] [place] [address]- 6078 Oct, [facility] [place] [facility] [address] [facility] 2001 [id number] [place] [address]- 8308 Oct, [facility] [place] [facility] [address] [facility] [address] [id number] [place] [address]- 2541 Oct, [facility] [place] [facility] [address] [facility] 2001 [id number] [place] [address]- 2548 Oct, [facility] [place] [facility] [address] [facility] 2001 [id number] [place] [address]- 6060 Oct, [facility] [place] [facility] [address] [facility] 2001 [id number] [place] [address]- 1297 Oct, [facility] [place] [facility] [address] [facility] 2001 [id number] [place] [address]- 5361 Oct, [facility] [place] [facility] [address] [id number] [place] [address]- 4908 Oct, [facility] [place] [facility] [address] [id number] [place] [address]- 4198 Oct, [facility] [place] [facility] [address] [id number] [place] [address]- 0218 Oct, [facility] [place] [facility] [address] [id number] [place] [address]- 1902 Oct, [facility] [place] [facility] [address] [id number] [place] [address]- 6991 Oct, [facility] [place] [facility] [address] [id number] [place] [address]- 4648 Oct, [facility] [place] [facility] [address] [id number] [place] [address]- 8475 Oct, [facility] [place] [facility] [address] [id number] [place] [address]- 5924 Oct, [facility] [place] [facility] [address] [id number] [place] [address]- 2464 Oct, [facility] [place] [facility] [address] [id number] [place] [address]- 7421 Oct, [facility] [place] [facility] [address] [id number] [place] [address]- 1349 Oct, [facility] [place] [facility] [address] [id number] [place] [address]- 7004 Oct, [facility] [place] [facility] [address] [id number] [place] [address]- 0388 Oct, [facility] [place] [facility] [address] [id number] [place] [address]- 6596 Sep, [facility] [place] [facility] [address] [id number] [address]- 7699 Sep, [facility] [place] [facility] [address] [id number] [place] [address]- 3251 18 Sep, 2014 [facility] [place] [facility] [address] [id number] [place] [address]- 9722 18 Sep, 2014 [facility] [place] [facility] [address] [id number] [place] [address]- 4966 17 Sep, 2014 [facility] [place] [facility] [address] [id number] [place] [address]- 6466 17 Sep, 2014 [facility] [place] [facility] [address] [id number] [place] [address]- 7214 15 Sep, 2014 [facility] [place] [facility] [address] [id number] [place] [address]- 7517 15 Sep, 2014 [facility] [place] [facility] [address] [id number] [place] [address]- 3761 12 Sep, 2014 [facility] [place] [facility] [address] [id number] [place] [address]- 3370 12 Sep, 2014 [facility] [place] [facility] [address] [id number] [place] [address]- 1555 11 Sep, 2014 [facility] [place] [facility] [address] [id number] [place] [address]- 7934 11 Sep, 2014 [facility] [place] [facility] [address] [id number] [place] [address]- 3099 11 Sep, 2014 [facility] [place] [facility] [address] [id number] [place] [address]- 8991 11 Sep, 2014 [facility] [place] [facility] [address] [id number] [place] [address]- 7300 11 Sep, 2014 [facility] [place] [facility] [address] [id number] [place] [address]- 6287 11 Sep, 2014 [facility] [place] [facility] [address] [id number] [place] [address]- 2348 10 Sep, 2014 [facility] [place] [facility] [address] [id number] [place] [address]- 4728 10 Sep, 2014 [facility] [place] [facility] [address] [id number] [place] [address]- 1535 Sep, [facility] [place] [facility] [address] [id number] [place] [address]- 9895 Sep, [facility] [place] [facility] [address] [id number] [place] [address]- 9916 Aug, [facility] [place] [facility] [address] [id number] [place] [address]- 7703 Aug, [facility] [place] [facility] [address] [id number] [place] [address]- 8838 Aug, [facility] [place] [facility] [address] [id number] [place] [address]- 8235 Aug, [facility] [place] [facility] [address] [id number] [place] [address]- 1355 Aug, [facility] [place] [facility] [address] [id number] [place] [address]- 2148 Aug, [facility] [place] [facility] [address] [id number] [place] [address]- 8880 Aug, [facility] [place] [facility] [address] [id number] [place] [address]- 4492 Aug, [facility] [place] [facility] [address] [id number] [place] [address]- 9234 Aug, [facility] [place] [facility] [address] [id number] [place] [address]- 9947 Jul, [facility] [place] [facility] [address] [id number] [place] [address]- 0314 Jul, [facility] [place] [facility] [address] [id number] [place] [address]- 8180 Jul, [facility] [place] [facility] [address] [id number] [place] [address]- 2576 Jul, [facility] [place] [facility] [address] [id number] [place] [address]- 9667 16 Jul, 2014 [facility] [place] [facility] [address] [id number] [place] [address]- 3013 16 Jul, 2013 [facility] [place] [facility] [address] [id number] [place] [address]- 8361 Jul, [facility] [place] [facility] [address] [id number] [place] [address]- 5802 13 Jul, 2014 [facility] [place] [facility] [address] [id number] [place] [address]- 4890 10 Jul, 2014 [facility] [place] [facility] [address] [id number] [place] [address]- 8871 10 Jul, 2014 [facility] [place] [facility] [address] [id number] [place] [address]- 3524 10 Jul, 2014 [facility] [place] [facility] [address] [id number] [place] [address]- 7394 Jul, [facility] [place] [facility] [address] [id number] [place] [address]- 2365 07 Jul, 2014 [facility] [place] [facility] [address] [id number] [place] [address]- 0442 07 Jul, 2014 [facility] [place] [facility] [address] [id number] [place] [address]- 7295 30 Jun, 2013 [facility] [place] [facility] [address] [id number] [place] [address]- 7613 30 Sep, 2013 [facility] [place] [facility] [address] [id number] [place] [address]- 8950 25 Sep, 2013 [facility] [place] [facility] [address] [id number] [place] [address]- 5074 25 Sep, 2013 [facility] [place] [facility] [address] [id number] [place] [address]- 6735 25 Jun, 2013 [facility] [place] [facility] [address] [id number] [place] [address]- 5715 25 Jun, 2013 [facility] [place] [facility] [address] [id number] [place] [address]- 5308 24 Sep, 2013 [facility] [place] [facility] [address] [id number] [place] [address] 2546 24 Sep, 2013 [facility] [place] [facility] [address] [id number] [place] [address] 2546 22 Sep, 2013 [facility] [place] [facility] [address] [id number] [place] [address] 2546 22 Sep, 2013 [facility] [place] [facility] [address] [id number] [place] [address] 2546 17 Sep, 2013 [facility] [place] [facility] [address] [id number] [place] [address]- 4594 17 Sep, 2013 [facility] [place] [facility] [address] [id number] [place] [address] 2544 16 Sep, 2013 [facility] [place] [facility] [address] [id number] [place] [address]- 8649 16 Sep, 2013 [facility] [place] [facility] [address] [id number] [place] [address] 2541 15 Sep, 2013 [facility] [place] [facility] [address] [id number] [place] [address] 2542 15 Sep, 2013 [facility] [place] [facility] [address] [id number] [place] [address]- 2549 12 Sep, 2013 [facility] [place] [facility] [address] [id number] [place] [address] 2546 12 Sep, 2013 [facility] [place] [facility] [address] [id number] [place] [address] 2544 11 Sep, 2013 [facility] [place] [facility] [address] [id number] [place] [address] 2546 11 Sep, 2013 [facility] [place] [facility] [address] [id number] [place] [address] 2546 11 Sep, 2013 [facility] [place] [facility] [address] [id number] [place] [address] 2543 11 Jun, 2014 [facility] [place] [facility] [address] [id number] [place] [address]- 2393 Jun, 2013 [facility] [place] [facility] [address] [id number] [place] [address]- 6961 Jun, [facility] [place] [facility] [address] [id number] [place] [address]- 5500 Jun, [facility] [place] [facility] [address] [id number] [place] [address]- 3734 Jun, [facility] [place] [facility] [address] [id number] [place] [address]- 4774 May, [facility] [place] [facility] [address] [id number] [place] [address]- 3704 May, [facility] [place] [facility] [address] [id number] [place] [address]- 4409 May, [facility] [place] [facility] [address] [id number] [place] [address]- 3334 May, [facility] [place] [facility] [address] [id number] [place] [address]- 6135 May, [facility] [place] [facility] [address] [id number] [place] [address]- 3869 May, [facility] [place] [facility] [address] [id number] [place] [address]- 9560 May, [facility] [place] [facility] [address] [id number] [place] [address]- 1821 May, [facility] [place] [facility] [address] [id number] [place] [address]- 9078 May, [facility] [place] [facility] [address] [id number] [place] [address]- 6158 May, [facility] [place] [facility] [address] [id number] [place] [address]- 0305 May, [facility] [place] [facility] [address] [id number] [place] [address]- 3996 May, [facility] [place] [facility] [address] [id number] [place] [address]- 0633 May, [facility] [place] [facility] [address] [id number] [place] [address]- 9092 Apr, [facility] [place] [facility] [address] [id number] [place] [address]- 0755 Apr, [facility] [place] [facility] [address] [id number] [place] [address]- 5742 Apr, [facility] [place] [facility] [address] [id number] [place] [address]- 7734 Apr, [facility] [place] [facility] [address] [id number] [place] [address]- 2000 Apr, [facility] [place] [facility] [address] [id number] [place] [address]- 8325 Mar, [facility] [place] [facility] [address] [id number] [place] [address]- 9768 Mar, [facility] [place] [facility] [address] [id number] [place] [address]- 4127 Mar, [facility] [place] [facility] [address] [id number] [place] [address]- 6270 February, [facility] [place] [facility] [address] [id number] [place] [address]- 8551 February, [facility] [place] [facility] [address] [id number] [place] [address]- 6802 February, [facility] [place] [facility] [address] [id number] [place] [address]- 3215 February, [facility] [place] [facility] [address] [id number] [place] [address]- 2303 February, [facility] [place] [facility] [address] [id number] [place] [address]- 6873 February, [facility] [place] [facility] [address] [id number] [place] [address]- 9405 February, [facility] [address] [id number] [place] [address]- 8777 February, [facility] [place] [facility] [address] [id number] [place] [address]- 8960 February, [facility] [address] [id number] [place] [address]- 8867 Jan, [facility] [place] [facility] [address] [id number] [place] [address]- 5417 Jan, [facility] [address] [id number] [place] [address]- 0505 Jan, [facility] [address] [id number] [place] [address]- 8553 Jan, [facility] [place] [facility] [address] [id number] [place] [address]- 9266 Jan, [facility] [address] [id number] [place] [address]- 4806 Dec, [facility] [place] [facility] [address] [id number] [place] [address]- 8226 Dec, [facility] [address] [id number] [place] [address]- 5807 Dec, [facility] [place] [facility] [address] [id number] [place] [address]- 4343 Dec, [facility] [place] [facility] [address] [id number] [place] [address]- 1832 Dec, [facility] [place] [facility] [address] [id number] [place] [address]- 9370 Nov, [facility] [place] [facility] [address] [id number] [place] [address]- 6342 Nov, [facility] [place] [facility] [address] [id number] [place] [address]- 4942 Nov, [facility] [place] [facility] [address] [id number] [place] [address]- 2437 Nov, [facility] [place] [facility] [address] [id number] [place] [address]- 5973 Oct, [facility] [place] [facility] [address] [id number] [place] [address]- 7066 Oct, [facility] [place] [facility] [address] [id number] [place] [address]- 0231 Oct, [facility] [place] [facility] [address] [id number] [place] [address]- 8472 Oct, [facility] [place] [facility] [address] [id number] [place] [address]- 6462 Oct, [facility] [place] [facility] [address] [id number] [place] [address]- 5895 Oct, [facility] [place] [facility] [address] [id number] [place] [address]- 3967 Oct, [facility] [place] [facility] [address] [id number] [place] [address]- 2833 Oct, [facility] [place] [facility] [address] [id number] [place] [address]- 6755 Oct, [facility] [place] [facility] [address] [id number] [address]- 2825 Oct, [facility] [place] [facility] [address] [id number] [address]- 4934 Aug, [facility] [place] [facility] [address] [id number] [place] [address]- 7933 Aug, [facility] [place] [facility] [address] [id number] [address]- 6557 Jul, [facility] [place] [facility] [address] [id number] [place] [address]- 0055 Jul, [facility] [place] [facility] [address] [id number] [place] [address]- 6037 09 Jul, 2013 [facility] [address] [id number] [place] [address]- 9305 Jul, [facility] [address] [id number] [place] [address]- 4147 Jul, [facility] [address] [facility] [address] [id number] [place] [address]- 2084 Jul, [facility] [address] [id number] [place] [address]- 7627 Apr, [facility] [address] [id number] [place] [address]- 0882 Dec, [facility] [place] [facility] [address] [id number] [place] [address]- 2436 Nov, [facility] [address] [facility] [address] [id number] [place] [address]- 0605 Nov, [facility] [address] [id number] [place] [address]- 2724 Nov, [facility] [address] [facility] [address] [id number] [place] [address]- 6209 Oct, [facility] [address] [facility] [address] [id number] [place] [address]- 5820 Sep, [facility] [place] [facility] [address] [id number] [place] [address]- 3116 Sep, [facility] [place] [facility] [address] [id number] [place] [address]- 4944 Sep, [facility] [place] [facility] [address] [id number] [place] [address]- 1629 Sep, [facility] [place] [facility] [address] [facility] [address] [id number] [place] [address]- 8046 Aug, [facility] [place] [facility] [address] [facility] [address] [id number] [place] [address]- 2658 Aug, [facility] [place] [facility] [address] [id number] [place] [address]- 2298 Jul, [facility] [place] [facility] [address] [id number] [place] [address]- 7739 Jul, [facility] [place] [facility] [address] [id number] [place] [address]- 9256 28 Jun, 2012 [facility] [place] [facility] [address] [id number] [place] [address]- 5606 26 Jun, 2012 [facility] [place] [facility] [address] [id number] [place] [address]- 6357 24 Jun, 2012 [facility] [place] [facility] [address] [id number] [place] [address]- 9211 24 Jun, 2012 [facility] [place] [facility] [address] [id number] [place] [address]- 6440 Jun, [facility] [place] [facility] [address] [id number] [place] [address]- 9041 31 Apr, 2012 [facility] [place] [facility] [address] [id number] [place] [address]- 0595 30 Apr, 2012 [facility] [place] [facility] [address] [id number] [place] [address]- 0312 Apr, [facility] [place] [facility] [address] [id number] [place] [address]- 4321 Mar, [facility] [place] [facility] [address] [id number] [place] [address]- 4301 Mar, [facility] [place] [facility] [address] [id number] [place] [address]- 8344 Mar, [facility] [place] [facility] [address] [id number] [place] [address] February, [facility] [place] [facility] [address] [id number] [place] [address] Jan, [facility] [place] [facility] [address] [id number] [address] Dec, [facility] [address] [id number] [place] [address] Dec, [facility] [place] [facility] [address] [id number] [place] [address] Dec, [facility] [place] [facility] [address] [id number] [place] [address] Dec, [facility] [place] [facility] [address] [id number] [place] [address] Dec, [facility] [place] [facility] [address] [id number] [place] [address] 14 Nov, 2011 [facility] [place] [facility] [address] [id number] [place] [address] Nov, [facility] [place] [facility] [address] [facility] [id number] [place] [address] Oct, [facility] [place] [facility] [address] [id number] [place] [address] Oct, [facility] [place] [facility] [address] [facility] [id number] [place] [address] Oct, [facility] [place] [facility] [address] [facility] [id number] [place] [address] Sep, [facility] [place] [facility] [address] [id number] [address] Aug, [facility] [place] [facility] [address] [id number] [address] Aug, [facility] [place] [facility] [address] [id number] [place] [address] 28 Jul, 2011 [facility] [place] [facility] [address] [id number] [place] [address]- [address] 24 Jul, 2011 [facility] [place] [facility] [address] [facility] [address] [id number] [address] Jul, [facility] [place] [facility] [address] [id number] [place] [address] 13 Jan, 2011 [facility] [place] [facility] [address] [id number] [place] [address] 29 Sep, 2010 [facility] [place] [facility] [address] [id number] [place] [address] 27 Sep, 2010 [facility] [place] [facility] [address] [id number] [place] [address] 20 Sep, 2010 [facility] [place] [facility] [address] [id number] [place] [address] 20 Sep, 2010 [facility] [place] [facility] [address] [id number] [place] [address] 06 Sep, 2010 [facility] [place] [facility] [address] [id number] [place] [address] 16 Aug, 2010 [facility] [place] [facility] [address] [id number] [place] [address] 16 Aug, 2010 [facility] [place] [facility] [address] [id number] [place] [address] 08 Aug, 2010 [facility] [place] [facility] [address] [id number] [place] [address] Jul, [facility] [place] [facility] [address] [id number] [place] [address] 19 Jul, 2010 [facility] [place] [facility] [address] [id number] [place] [address] 12 Jul, 2010 [facility] [place] [facility] [address] [id number] [place] [address] 11 May, 2010 [facility] [place] [facility] [address] [id number] [place] [address] 13 Apr, 2010 [facility] [place] [facility] [address] [id number] [place] [address] 18 Dec, 2009 [facility] [place] [facility] [address] [id number] [place] [address] Sep, [facility] [address] [facility] [address] [id number] [address] Sep, [facility] [address] [id number] [address] Aug, [facility] [address] [facility] [address] [id number] [address] Aug, [facility] [address] [id number] [address] Jul, [facility] [address] [facility] [address] [id number] [address] Mar, IMMUNIZATIONS No Known Immunizations SOCIAL HISTORY Never Assessed REASON FOR VISIT No answer PLAN OF CARE VITAL SIGNS MEDICATIONS Unknown [...] History Surgery(s) only Hospitalization History [facility] and transferred [facility] 2016
--- OUTSIDE RECORDS SUMMARY | 2018-10-08 20:29 | XMS REPORT ---
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 [id number] [address] February, [facility] [id number], [place] [address] Jan, Chronic pain G89.29 [facility] [id number] [address] Jan, 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.4 [facility] [id number] [address] 1617 Jan, Encounter for Depo-Provera contraception Z30.42 [place] [address] 45484- 5575 Jan, [place] [address] 48662- 3033 Jan, Chronic pain G89.29 and Anxiety F41.9 [place] [address] 72795- 0693 Jan, [place] [address] 91891- 8474 Dec, [place] [address] 91636- 4151 Dec, Gastroesophageal reflux disease without esophagitis K21.9 and Anxiety F41.9 [place] [address] 44323- 3484 Dec, Essential hypertension I10 ; Mixed hyperlipidemia E78.2 ; Type 2 diabetes mellitus with diabetic neuropathy, unspecified E11.40 ; 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.4 ; Chronic pain G89.29 ; HSV (herpes simplex virus) infection B00.9 ; Anxiety F41.9 and Gastroesophageal reflux disease without esophagitis K21.9 [place] [address] 58508- 7381 07 Dec, 2017 Chronic pain G89.29 and Chronic migraine G43.709 [place] [address] 10413- 4206 Nov, [place] [address] 57772- 2460 Nov, Essential hypertension I10 and Chronic pain G89.29 [place] [address] 10261- 4201 05 Nov, 2017 Chronic pain G89.29 ; Essential hypertension I10 and Type 2 diabetes mellitus without complication E11.9 [place] [address] [place] [address]- 1279 Oct, Chronic pain G89.29 [place] [id number] [place] [address] 97635- 1918 Oct, [facility] [id number] [place] [address] 84217- 0698 Sep, Type 2 diabetes mellitus without complication E11.9 ; Essential hypertension I10 ; retirement (current) use of insulin Z79.4 ; Chronic migraine G43.709 ; Chronic pain G89.29 and Acute non-recurrent maxillary sinusitis J01.00 [place] [id number] [place] [address] 85069- 2971 19 Sep, 2017 Encounter for Depo-Provera contraception Z30.42 [place] [id number] [place] [address] 26486- 6874 13 Sep, 2017 Chronic pain G89.29 and Radiculopathy of lumbar region M54.16 [place] [id number] [place] [address] 67600- 1810 Sep, [place] [id number] [place] [address] 30221- 8992 Sep, [place] [id number] [place] [address] 37500- 3366 Aug, Type 2 diabetes mellitus without complication E11.9 [place] [id number] [place] [address] 30298- 2198 Aug, [place] [id number] [place] [address] 34010- 4070 Aug, Radiculopathy of lumbar region M54.16 and Chronic pain G89.29 [place] [id number] [place] [address] 20520- 6468 09 Aug, 2017 Type 2 diabetes mellitus without complication E11.9 [place] [id number] [place] [address] 72125- 6036 02 Aug, 2017 Type 2 diabetes mellitus without complication E11.9 [facility] [address], [place] [address] 7697 Jul, Type 2 diabetes mellitus without complication E11.9 [facility] [address], [place] [address] Jul, [facility] [id number] [place] [address] 63007- 6338 Jul, Chronic pain G89.29 [facility] [id number] [place] [address] 96014- 2734 Jul, [facility] [id number] [place] [address] 03877- 9605 Jul, [facility] [id number] [place] [address] 84864- 4442 Jul, Type 2 diabetes mellitus without complication E11.9 [facility] [id number] [place] [address] 17807- 7888 Jul, [facility] [address] [address] 1538 Jul, Type 2 diabetes mellitus without complication E11.9 [facility] [address], [place] [address] Jul, [facility] [address] [address] Jul, [facility] [address], [place] [address] 2672 Jul, [facility] [address], [place] [address]- 8968 Jun, Type 2 diabetes mellitus without complication E11.9 [facility] [address], [place] [address]- 1735 Jun, Chronic migraine G43.709 ; Type 2 diabetes mellitus without complication E11.9 ; Calculus of right kidney N20.0 ; Yeast dermatitis B37.2 and HSV (herpes simplex virus) infection B00.9 [facility] [id number] [place] [address] 63034- 9416 Jun, Type 2 diabetes mellitus without complication E11.9 [facility] [id number] [place] [address] 41403- 6241 Jun, [facility] [address] 33757- 6400 Jun, Radiculopathy of lumbar region M54.16 and Chronic pain G89.29 [place] [address] 28603- 3039 Jun, Encounter for Depo-Provera contraception Z30.42 [place] [id number] [place] [address] 67602- 0361 Jun, Type 2 diabetes mellitus without complication E11.9 [place] [address] 32082- 0048 Jun, [facility] [address] 37827 -2126 May, Acute nasopharyngitis (common cold) J00 [place] [id number] [place] [address] 27345- 5525 May, Chronic pain G89.29 [place] [id number] [place] [address] 39672- 2915 May, Headache following lumbar puncture G97.1 [place] [address] 14054- 7989 May, Radiculopathy of lumbar region M54.16 [place] [address] 20622- 4272 Apr, [facility] [id number] [place] [address] 82054- 2192 Apr, Type 2 diabetes mellitus without complication E11.9 ; Chronic pain G89.29 ; Essential hypertension I10 ; Radiculopathy of lumbar region M54.16 ; Spinal stenosis, lumbar region M48.06 ; Gastroesophageal reflux disease without esophagitis K21.9 ; HSV (herpes simplex virus) infection B00.9 ; Mixed hyperlipidemia E78.2 ; Anxiety F41.9 and Asthma J45.909 [place] [id number] [place] [address] 84399- 6639 Apr, Encounter for Depo-Provera contraception Z30.42 [place] [address] 89295- 2767 Apr, Chronic pain G89.29 and Anxiety F41.9 [place] [address] 04412- 9165 Mar, [place] [address] 97840- 9278 Mar, [place] [address] 46129- 6144 Mar, Mixed hyperlipidemia E78.2 [place] [id number] [place] [address] 17601- 5676 Mar, Type 2 diabetes mellitus without complication E11.9 ; Chronic pain G89.29 ; Essential hypertension I10 ; Radiculopathy of lumbar region M54.16 ; Spinal stenosis, lumbar region M48.06 ; Gastroesophageal reflux disease without esophagitis K21.9 ; HSV (herpes simplex virus) infection B00.9 ; Mixed hyperlipidemia E78.2 and Anxiety F41.9 [place] [id number] [place] [address] 08266- 4357 Mar, [place] [id number] [place] [address] 54167- 1328 Mar, [place] [id number] [place] [address] 83021- 3796 Mar, [place] [id number] [place] [address] 64598- 2844 February, Chronic pain G89.29 [facility] [address], [place] [address] 4884 February, [facility] [id number] [place] [address] 95780- 3489 Jan, Chronic pain G89.29 [facility] [address], [place] [address]- 8398 Jan, Type 2 diabetes mellitus without complication E11.9 [facility] [id number] [place] [address] 13437- 1934 Jan, [place] [id number] [place] [address] 38293- 7610 Jan, [facility] [id number] [place] [address] 21214- 2272 Jan, [place] [id number] [place] [address] 79644- 2812 Jan, Type 2 diabetes mellitus without complication [...] J01.00 and Encounter for Depo-Provera contraception Z30.42 [facility] [address], [place] [address]- 9568 28 Dec, [address] [facility] [id number] [place] [address] 03261- 6984 Dec, Abnormal ankle brachial index (BERNARDINO) R68.89 [place] [address], [place] [address]- 9815 Dec, [facility] [id number] [place] [address] 49304- 5275 Dec, Routine gynecological examination Z01.419 ; Chronic [...] B00.9 and Allergic rhinitis [id number] [place] [address] 29092- 7467 Nov, Chronic pain G89.29 [id number] [place] [address] 01874- 1290 02 Nov, 2016 Chronic pain G89.29 ; [...] media of both ears H65.113 [place] [id number] [place] [address] 31616- 5302 Oct, [address] [id number] [place] [address] 60887- 9773 Oct, Chronic pain G89.29 [place] [id number] [place] [address] 90353- 4150 Oct, Chronic pain G89.[address] 16702- 9551 Sep, Chronic pain G89.29 ; Type 2 diabetes mellitus without complication E11.9 ; Essential hypertension I10 ; Radiculopathy of lumbar region M54.16 ; Spinal stenosis, lumbar region M48.06 ; Gastroesophageal reflux disease without esophagitis K21.9 ; Encounter for surveillance of injectable contraceptive Z30.42 ; Bilateral cold feet R20.9 ; Pain of left foot M79.672 and Pain in right foot M79.671 [place] [address] 98390- 2186 05 Sep, 2016 [place] [address] 25055- 7264 Aug, [place] [address] 72226- 4625 Aug, [place] [address] 76409- 1677 Aug, Chronic pain G89.29 ; Type 2 diabetes mellitus without complication E11.9 ; Essential hypertension I10 ; Rash and nonspecific skin eruption R21 and Upper respiratory infection, acute J06.9 [place] [address] 01539- 4408 Aug, [place] [address] 93767- 7064 Aug, [place] [address] 85408- 2678 Jul, [place] [address] 00815- 9472 Jul, Dysuria R30.0 ; Encounter for Depo-Provera contraception Z30.42 ; Herpes simplex B00.9 ; Nausea & vomiting R11.2 and Asthma J45.909 [place] [id number] [place] [address] 98288- 8250 Jun, Dysuria R30.0 [place] [address] 55501- 8017 19 Jun, 2016 Dysuria R30.0 [place] [address] 92884- 1357 15 Jun, 2016 [place] [address] 99511- 2526 Jun, [place] [address] [place] [address] 85915- 7123 May, [place] [id number] [place] [address] 26582- 0437 May, [place] [id number] [place] [address] 71239- 9723 May, Chronic pain G89.29 ; Essential hypertension I10 ; Type 2 diabetes mellitus without complication E11.9 ; Edema of both feet R60.0 and Rash and nonspecific skin eruption R21 [place] [id number] [place] [address] 06667- 4868 Apr, [place] [id number] [place] [address] 15012- 5246 Mar, Carpal tunnel syndrome, left upper limb G56.02 and Carpal tunnel syndrome, right upper limb G56.01 [place] [id number] [place] [address] 66816- 6029 Mar, [place] [id number] [place] [address] 44141- 8265 Mar, Encounter for Depo-Provera contraception Z30.42 [place] [id number] [place] [address] 86283- 2558 February, [place] [id number] [place] [address] 36291- 3651 February, [place] [id number] [place] [address] 76930- 1601 February, Chronic pain G89.29 ; Essential hypertension I10 ; Type 2 diabetes mellitus without complication E11.9 ; HSV (herpes simplex virus) infection B00.9 ; Anxiety F41.9 ; Hypersomnia G47.10 ; Tobacco abuse Z72.0 ; Hand pain, left M79.642 ; Hand pain, right M79.641 ; Left foot pain M79.672 and Heart palpitations R00.2 [place] [address] [place] [address] 04129- 4244 Jan, [place] [id number] [place] [address] 35445- 5886 Jan, [place] [id number] [place] [address] 64465- 9154 Jan, [place] [address] 30571- 5466 Jan, [place] [id number] [place] [address] 71588- 2526 Jan, Upper respiratory infection J06.9 and Type 2 diabetes mellitus without complication E11.9 [place] [id number] [place] [address] 40825- 6221 Dec, [address] [id number] [place] [address] 05238- 0137 Dec, Chronic pain G89.29 ; Essential hypertension I10 ; Type 2 diabetes mellitus without complication E11.9 ; HSV (herpes simplex virus) infection B00.9 ; Anxiety F41.9 ; Upper respiratory infection J06.9 ; Hypersomnia G47.10 and Tobacco abuse Z72.0 [id number] [place] [address] 18314- 9554 Dec, Encounter for Depo-Provera contraception Z30.42 [id number] [place] [address] 47329- 3922 Dec, [address] [id number] [place] [address] 89646- 1139 Dec, Chronic pain G89.29 ; Sinusitis J32.9 ; Snoring R06.83 and Daytime hypersomnia G47.19 [address] [id number] [place] [address] 30208- 6316 Nov, HSV (herpes simplex virus) infection B00.9 ; Encounter for Papanicolaou smear for cervical cancer screening Z12.4 ; Screening for STD sexually transmitted disease Z11.3 and Bartholin's gland cyst N75.0 [facility] [id number] [place] [address] 80330- 7341 Nov, [facility] [id number] [place] [address] 91236- 8322 Nov, [facility] [id number] [place] [address] 82652- 1694 Nov, Essential hypertension I10 ; Type 2 diabetes mellitus without complication E11.9 ; HSV (herpes simplex virus) infection B00.9 ; Spinal stenosis, lumbar region M48.06 and Vaginal yeast infection B37.3 [place] [id number] [place] [address] 56326- 4657 Nov, [place] [id number] [place] [address] 21160- 1170 Nov, [place] [id number] [place] [address] 16291- 0668 Oct, [place] [id number] [place] [address] 13019- 0713 Oct, HSV (herpes simplex virus) infection B00.9 ; Yeast infection B37.9 ; Change in bowel habit R19.4 ; Nausea & vomiting R11.2 and Gastroesophageal reflux disease without esophagitis K21.9 [place] [id number] [place] [address] 67647- 1051 Oct, [facility] [id number] [place] [address] 49210- 6816 Oct, Type 2 diabetes mellitus without complication E11.9 ; Essential hypertension I10 and Acute maxillary sinusitis, recurrence not specified J01.00 [place] [id number] [place] [address] 86519- 9539 Oct, [facility] [id number] [place] [address] 11568- 9069 Oct, [facility] [address] 82491- 3038 Oct, Exposure to head lice Z20.7 ; Blood glucose abnormal R73.09 ; Boil of buttock L02.32 and Type 2 diabetes mellitus without complication E11.[address] 92853- 6757 Oct, [address] 57173- 6069 Sep, [address] 54271- 8265 Sep, [address] 12695- 2311 Aug, Encounter for Depo-Provera contraception Z30.[address] 92044- 3243 Aug, Anxiety F41.9 ; Spinal stenosis, lumbar region M48.06 ; Radiculopathy of lumbar region M54.16 ; Asthma J45.909 ; GERD (gastroesophageal reflux disease) K21.9 ; Essential hypertension I10 and Long-term use of high- risk medication Z79.[address] 70146- 6199 Jul, [address] 32958- 7074 Jun, Hemorrhoid 455.[address] 29838- 0811 Jun, [address] 23183- 1926 Jun, Anxiety 300.00 ; Asthma 493.90 ; Hyperhidrosis 705.21 ; Chest discomfort 786.59 and Upper respiratory infection 465.[address] 80769- 2420 May, Encounter for Depo-Provera contraception V25.49 [place] [id number] [place] [address] 59230- 1093 May, [place] [address] 77665- 5865 May, [place] [address] 06712- 5315 May, Spinal stenosis of lumbar region with radiculopathy 724.02 ; Bulging of intervertebral disc between L4 and L5 722.10 ; GERD ( gastroesophageal reflux disease) 530.81 ; Chronic pain 338.29 ; Declining mobility 799.89 and Epigastric pain 789.06 [place] [address] 24536- 2801 Apr, [place] [address] 60242- 3400 Apr, Nausea 787.02 and Heart burn 787.1 [place] [address] 45608- 9102 Mar, Lumbago 724.2 ; Vitamin D deficiency 268.9 ; Anxiety 300.00 ; Allergic rhinitis 477.9 and Contraceptive surveillance V25.40 [place] [id number] [place] [address] 83168- 5331 February, 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 ; Chronic pain 338.29 and Vaginal discharge 623.5 [place] [id number] [place] [address] 43012- 0948 February, [place] [id number] [place] [address] 81120- 9030 February, [place] [address] 02320- 5497 Jan, [place] [id number] [place] [address] 17110- 9089 Jan, [place] [address] 45660- 2834 Dec, [facility] [place] [facility] [address] [id number] [place] [address]- 9632 Dec, [facility] [place] [facility] [address] [id number] [place] [address]- 3112 Dec, [facility] [place] [facility] [address] [id number] [place] [address]- 0029 Dec, [facility] [place] [facility] [address] [id number] [place] [address]- 0939 Dec, [facility] [place] [facility] [address] [id number] [place] [address]- 5859 Dec, [facility] [place] [facility] [address] [id number] [place] [address]- 7109 Dec, [facility] [place] [facility] [address] [facility] [id number] [place] [address]- 0428 Dec, [facility] [place] [facility] [address] [id number] [place] [address]- 1406 Dec, [facility] [place] [facility] [address] [id number] [place] [address]- 9765 Dec, [facility] [place] [facility] [address] [facility] [id number] [place] [address]- 3521 Dec, [facility] [place] [facility] [address] [id number] [place] [address]- 6627 Dec, [facility] [place] [facility] [address] [id number] [place] [address]- 1722 Nov, [facility] [place] [facility] [address] [id number] [place] [address]- 9027 Nov, [facility] [place] [facility] [address] [id number] [place] [address]- 5539 Nov, [facility] [place] [facility] [address] [facility] [id number] [place] [address]- 2888 Nov, [facility] [place] [facility] [address] [id number] [place] [address] 2541 23 Nov, 2014 [facility] [place] [facility] [address] [id number] [place] [address] 2546 23 Nov, 2014 [facility] [place] [facility] [address] [id number] [place] [address] 2546 16 Nov, 2014 [facility] [place] [facility] [address] [id number] [place] [address] 2546 16 Nov, 2014 [facility] [place] [facility] [address] [id number] [place] [address] 2546 13 Nov, 2014 [facility] [place] [facility] [address] [id number] [place] [address] 13 Nov, 2014 [facility] [place] [facility] [address] [facility] [id number] [place] [address] 13 Nov, 2014 [facility] [place] [facility] [address] [id number] [place] [address] 13 Nov, 2014 [facility] [place] [facility] [address] [id number] [place] [address] 13 Nov, 2014 [facility] [place] [facility] [address] [facility] [id number] [place] [address] 13 Nov, 2014 [facility] [place] [facility] [address] [facility] [id number] [place] [address] 13 Nov, 2014 [facility] [place] [facility] [address] [id number] [place] [address] 13 Nov, 2014 [facility] [place] [facility] [address] [id number] [place] [address] 10 Nov, 2014 [facility] [place] [facility] [address] [id number] [place] [address] 10 Nov, 2014 [facility] [place] [facility] [address] [facility] [id number] [place] [address] 09 Nov, 2014 [facility] [place] [facility] [address] [id number] [place] [address] Nov, 2014 [facility] [place] [facility] [address] [id number] [place] [address] Nov, 2014 [facility] [place] [facility] [address] [id number] [place] [address] Nov, 2014 [facility] [place] [facility] [address] [id number] [place] [address] Nov, [facility] [place] [facility] [address] [id number] [place] [address] Oct, [facility] [facility] [address] [id number] [place] [address] Oct, [facility] [address] [id number] [place] [address] 6[address] Oct, [facility] [facility] [address] [id number] [place] [address] 9301 Oct, [facility] [place] [facility] [address] [id number] [place] [address] 6340 Oct, [facility] [facility] [address] [id number] [place] [address] Oct, [facility] [address] [id number] [place] [address] 7835 Oct, [facility] [place] [facility] [address] [id number] [place] [address]- 3353 Oct, [facility] [place] [facility] [address] [id number] [place] [address]- 2871 Oct, [facility] [place] [facility] [address] [id number] [place] [address]- 5725 Oct, [facility] [place] [facility] [address] [id number] [place] [address]- 6012 Oct, [facility] [place] [facility] [address] [id number] [place] [address]- 5367 Oct, [facility] [place] [facility] [address] [id number] [place] [address]- 5174 Oct, [facility] [place] [facility] [address] [id number] [place] [address]- 8603 Oct, [facility] [place] [facility] [address] [id number] [place] [address]- 3878 Oct, [facility] [place] [facility] [address] [id number] [place] [address]- 4272 Oct, [facility] [place] [facility] [address] [id number] [place] [address]- 5263 Oct, [facility] [place] [facility] [address] [id number] [place] [address]- 3791 Oct, [facility] [place] [facility] [address] [id number] [place] [address]- 5065 Oct, [facility] [place] [facility] [address] [id number] [place] [address]- 9114 Oct, [facility] [place] [facility] [address] [id number] [place] [address]- 4307 Oct, [facility] [place] [facility] [address] [id number] [place] [address]- 3971 Sep, [facility] [place] [facility] [address] [id number] [place] [address]- 1904 29 Sep, 2014 [facility] [address] [id number], [place] [address]- 2882 18 Sep, 2014 [facility] [place] [address] [id number] [place] [address]- 4585 18 Sep, 2014 [facility] [place] [facility] [address] [id number] [place] [address]- 3656 Sep, [facility] [place] [address] [id number] [place] [address]- 3252 Sep, [facility] [place] [address] [id number] [place] [address]- 4100 15 Sep, 2014 [facility] [address] [id number] [place] [address]- 1366 15 Sep, 2014 [facility] [address] [id number] [place] [address]- 6436 12 Sep, 2014 [facility] [address] [id number] [place] [address]- 1580 12 Sep, 2014 [facility] [facility] [address] [id number] [place] [address]- 5406 11 Sep, 2014 [facility] [address] [id number] [place] [address]- 5599 Sep, [facility] [address] [id number] [place] [address]- 9492 Sep, [facility] [address] [id number] [place] [address]- 8308 Sep, [facility] [address] [id number] [place] [address]- 1098 Sep, [facility] [address] [id number] [place] [address]- 4706 Sep, [facility] [address] [id number] [place] [address]- 5057 10 Sep, 2014 [facility] [address] [id number] [place] [address]- 8583 Sep, [facility] [address] [id number] [place] [address]- 8124 Sep, [facility] [place] [facility] [address] [id number] [place] [address]- 9149 Sep, [facility] [address] [id number] [place] [address]- 1481 Aug, [facility] [address] [id number] [place] [address]- 3751 Aug, [facility] [address] [id number] [place] [address]- 2874 Aug, [facility] [address] [id number] [place] [address]- 3828 Aug, [facility] [address] [id number] [place] [address]- 2610 Aug, [facility] [address] [id number] [place] [address]- 4962 Aug, [facility] [address] [id number] [place] [address]- 4167 Aug, [facility] [address] [id number] [place] [address]- 7114 Aug, [facility] [address] [id number] [place] [address]- 8867 Aug, [facility] [address] [id number] [place] [address]- 7217 Jul, [facility] [address] [id number] [place] [address]- 0688 Jul, [facility] [address] [id number] [place] [address]- 1297 Jul, [facility] [address] [id number] [place] [address]- 9001 Jul, [facility] [address] [id number], [place] [address]- 1212 Jul, [facility] [address] [id number] [place] [address]- 1484 Jul, [facility] [address] [id number] [place] [address]- 4351 Jul, [facility] [address] [id number], [place] [address]- 4429 Jul, [facility] [address] [id number], [place] [address]- 4684 Jul, [facility] [address] [id number] [place] [address]- 5235 10 Jul, 2014 [facility] [address] [id number] [place] [address]- 7916 Jul, [facility] [address] [id number] [place] [address]- 9853 Jul, [facility] [address] [id number] [place] [address]- 5584 Jul, [facility] [address] [id number] [place] [address]- 2793 Jul, [facility] [address] [id number] [place] [address]- 0027 30 Jun, 2013 [facility] [address] [id number] [place] [address]- 0724 30 Jun, 2013 [facility] [address] [id number] [place] [address]- 2549 25 Jun, 2013 [facility] [address] [id number] [place] [address] 2543 25 Jun, 2013 [facility] [address] [id number] [place] [address] 2549 25 Jun, 2013 [facility] [address] [id number] [place] [address] 2549 25 Jun, 2013 [facility] [address] [id number] [place] [address]- 2549 24 Jun, 2013 [facility] [address] [id number] [place] [address] 2546 24 Jun, 2013 [facility] [address] [id number] [place] [address]- 2542 22 Jun, 2013 [facility] [address] [id number] [place] [address]- 2544 22 Jun, 2013 [facility] [address] [id number] [place] [address]- 9378 17 Sep, 2013 [facility] [address] [id number] [place] [address]- 9996 17 Sep, 2013 [facility] [address] [id number] [place] [address]- 2546 16 Sep, 2013 [facility] [address] [id number] [place] [address] 2546 16 Sep, 2013 [facility] [address] [id number] [place] [address]- 2542 15 Sep, 2013 [facility] [address] [id number] [place] [address]- 8707 15 Sep, 2013 [facility] [address] [id number] [place] [address]- 4984 12 Sep, 2013 [facility] [address] [id number] [place] [address]- 2542 12 Sep, 2013 [facility] [address] [id number] [place] [address]- 2548 11 Sep, 2013 [facility] [address] [id number] [place] [address] 2544 11 Sep, 2013 [facility] [address] [id number] [place] [address]- 8689 11 Sep, 2013 [facility] [address] [id number] [place] [address]- 2543 11 Sep, 2013 [facility] [address] [id number] [place] [address] 254 09 Sep, 2013 [facility] [address] [id number] [place] [address] 2546 09 Sep, 2013 [facility] [address] [id number] [place] [address]- 2546 03 Sep, 2013 [facility] [address] [id number] [place] [address]- 5751 Jun, [facility] [address] [id number] [place] [address]- 4428 May, [facility] [address] [id number] [place] [address]- 1413 May, [facility] [address] [id number] [place] [address]- 4969 May, [facility] [address] [id number] [place] [address]- 7660 May, [facility] [address] [id number] [place] [address]- 8406 May, [facility] [address] [id number] [place] [address]- 9485 May, [facility] [address] [id number] [place] [address]- 1187 May, [facility] [address] [id number] [place] [address]- 7846 May, [facility] [address] [id number] [place] [address]- 8604 May, [facility] [address] [id number] [place] [address]- 9811 May, [facility] [address] [id number] [place] [address]- 6391 May, [facility] [address] [id number] [place] [address]- 7826 May, [facility] [address] [id number] [place] [address]- 5440 May, [facility] [address] [id number] [place] [address]- 7462 Apr, [facility] [address] [id number] [place] [address]- 5348 Apr, [facility] [address] [id number] [place] [address]- 0498 Apr, [facility] [address] [id number] [place] [address]- 2508 Apr, [facility] [address] [id number] [place] [address]- 9212 Apr, [facility] [address] [id number] [place] [address]- 6481 Mar, [facility] [address] [id number] [place] [address]- 7190 Mar, [facility] [address] [id number] [place] [address]- 7612 Mar, [facility] [address] [id number] [place] [address]- 0374 February, [facility] [address] [id number] [place] [address]- 0111 February, [facility] [address] [id number] [place] [address]- 8420 February, [facility] [address] [id number] [place] [address]- 6426 February, [facility] [address] [id number] [place] [address]- 8431 February, [facility] [address] [id number] [place] [address]- 4359 February, [facility] [address] [id number] [place] [address]- 3196 February, [facility] [address] [id number] [place] [address]- 6090 February, [facility] [address] [id number] [place] [address]- 3215 February, [facility] [address] [id number] [place] [address]- 2126 Jan, [facility] [address] [id number] [place] [address]- 6925 Jan, [facility] [address] [id number] [place] [address]- 3169 Jan, [facility] [address] [id number] [place] [address]- 0234 Jan, [facility] [address] [id number] [place] [address]- 5781 Jan, [facility] [address] [id number] [place] [address]- 0438 Dec, [facility] [address] [id number] [place] [address]- 8118 Dec, [facility] [address] [id number] [place] [address]- 8318 Dec, [facility] [address] [id number] [place] [address]- 1832 Dec, [facility] [address] [id number] [place] [address]- 3475 Dec, [facility] [address] [id number] [place] [address]- 6644 Nov, [facility] [address] [id number] [place] [address]- 6824 Nov, [facility] [address] [id number] [place] [address]- 5803 Nov, [facility] [address] [id number] [place] [address]- 3970 Nov, [facility] [address] [id number] [place] [address]- 9870 Oct, [facility] [address] [id number] [place] [address]64 Oct, [facility] [address] [id number], [place] [address]- 7166 Oct, [facility] [address] [id number] [place] [address]- 1278 Oct, [facility] [address] [id number] [place] [address]- 2126 Oct, [facility] [address] [id number] [place] [address]- 1165 Oct, [facility] [place] [address] [id number] [place] [address]- 4705 Oct, [facility] [address] [id number] [place] [address]- 4244 Oct, [facility] [address] [id number] [place] [address]- 1821 Oct, [facility] [address] [id number] [place] [address]- 9760 Oct, [facility] [address] [id number] [place] [address]- 2883 Aug, [facility] [place] [address] [id number] [place] [address]- 8387 Aug, [facility] [address] [id number], [place] [address]- 8640 Jul, [facility] [address] [id number], [place] [address]- 1167 Jul, [facility] [address] [id number], [place] [address]- 2325 Jul, [facility] [address] [id number], [place] [address]- 3271 Jul, [facility] [address] [id number], [place] [address]- 2546 Jul, [facility] [place] [facility] [address] [id number] [place] [address]- 1377 Jul, [facility] [place] [facility] [address] [id number] [place] [address]- 8793 Apr, [facility] [address] [id number] [place] [address]- 5636 Dec, [facility] [place] [facility] [address] [id number] [place] [address]- 2316 Nov, [facility] [place] [facility] [address] [id number] [place] [address]- 1876 Nov, [facility] [place] [facility] [address] [id number] [place] [address] 2547 Nov, [facility] [place] [facility] [address] [id number] [place] [address]- 0613 Oct, [facility] [facility] [address] [id number] [place] [address]- 8751 Sep, [facility] [place] [facility] [address] [id number] [place] [address]- 0560 Sep, [facility] [facility] [address] [id number] [place] [address]- 3644 Sep, [facility] [place] [facility] [address] [id number] [place] [address]- 8579 Sep, [facility] [facility] [address] [id number] [place] [address]- 5458 Aug, [facility] [place] [facility] [address] [id number] [place] [address]- 9442 Aug, [facility] [place] [facility] [address] [id number] [place] [address]- 4735 Jul, [facility] [place] [facility] [address] [id number] [place] Jul, [facility] [place] [facility] [address] [id number] [place] [address] 254 28 Jun, 2012 [facility] [place] [facility] [address] [id number] [place] [address]- 4331 26 Jun, 2012 [facility] [place] [facility] [address] [id number] [place] [address]- 5043 24 Jun, 2012 [facility] [place] [facility] [address] [id number] [place] [address]- 0996 24 Jun, 2012 [facility] [place] [facility] [address] [id number] [place] [address]- 2696 Jun, [facility] [place] [facility] [address] [id number] [place] [address]- 6190 31 Apr, 2012 [facility] [place] [facility] [address] [id number] [place] [address]- 5304 30 Apr, 2012 [facility] [place] [facility] [address] [id number] [place] [address]- 3158 Apr, [facility] [place] [facility] [address] [id number] [place] [address]- 1821 Mar, [facility] [place] [facility] [address] [id number] [place] [address]- 0407 Mar, [facility] [place] [facility] [address] [id number] [place] [address]- 8646 Mar, [facility] [place] [facility] [address] [id number] [place] [address]- 8781 February, [facility] [place] [facility] [address] [id number] [place] [address]- 6177 Jan, [facility] [place] [facility] [address] [id number], [place] [address]- 0379 Dec, [facility] [place] [facility] [address] [id number] [place] [address]- 2619 Dec, [facility] [place] [facility] [address] [id number] [place] [address]- 9420 Dec, [facility] [place] [facility] [address] [id number] [place] [address]- 8932 Dec, [facility] [place] [facility] [address] [id number] [place] [address]- 0905 12 Dec, 2011 [facility] [address] [id number] [place] [address]- 9446 14 Nov, 2011 [facility] [address] [id number] [place] [address]- 0976 13 Nov, 2011 [facility] [address] [id number] [place] [address]- 1988 Oct, [facility] [address] [id number] [place] [address]- 2054 Oct, [facility] [address] [id number] [place] [address], [place] [address]- 5369 Oct, [facility] [address] [id number] [place] [address]- 4786 Sep, [facility] [address] [id number] [place] [address]- 6033 Aug, [facility] [address] [id number] [place] [address]- 8376 Aug, [facility] [address] [id number] [place] [address] 28 Jul, 2011 [facility] [address] [id number] [place] [address] 24 Jul, 2011 [facility] [address] [id number] [place] [address] 19 Jul, 2011 [facility] [address] [id number] [place] [address] 13 Jan, 2011 [facility] [place] [facility] [address] [id number] [place] [address] 29 Sep, 2010 [facility] [place] [facility] [address] [id number] [place] [address] 27 Sep, 2010 [facility] [address] [id number] [place] Sep, [facility] [place] [facility] [address] [id number] [place] [address] Sep, [facility] [place] [facility] [address] [id number] [place] [address] Sep, [facility] [place] [facility] [address] [id number] [place] [address] Aug, [facility] [place] [facility] [address] [id number] [place] [address] 16 Aug, 2010 [facility] [place] [facility] [address] [id number] [place] [address] 08 Aug, 2010 [facility] [place] [facility] [address] [id number] [place] [address] Jul, [facility] [place] [facility] [address] [id number] [place] [address] Jul, [facility] [place] [facility] [address] [id number], [place] [address] Jul, [facility] [place] [facility] [address] [id number] [place] [address] May, [facility] [place] [facility] [address] [id number], [place] [address] Apr, [facility] [place] [facility] [address] [id number], [place] [address] Dec, [facility] [place] [facility] [address] [id number], [place] [address] 17 Sep, 2009 [facility] [place] [facility] [address] [id number] [place] [address] 17 Sep, 2009 [facility] [place] [facility] [address] [id number], [place] [address] Aug, [facility] [place] [facility] [address] [id number], [place] [address] 11 Aug, 2009 [facility] [place] [facility] [address] [id number], [place] [address] Jul, [facility] [address] [facility] [id number] [place] [address] Mar, IMMUNIZATIONS No Known Immunizations SOCIAL HISTORY Never Assessed REASON FOR VISIT Orders PLAN OF CARE VITAL SIGNS MEDICATIONS Medication Instructions Dosage Frequency Start Date End Date Duration Status BD Pen Needle Ultrafine 29G X 12.7MM Inject Jun, Active NovoLog Flexpen 100 UNIT/ML Subcutaneous before meals as directed per protocol Jun, Active RESULTS No Results PROCEDURES No [...]
--- OUTSIDE RECORDS SUMMARY | 2018-10-08 20:31 | XMS REPORT ---
Author Author DELMAR Robles [facility] Address [address] [place] [address] Care Team Providers Care Head Loader Name Role Phone DELMAR Robles Unavailable PROBLEMS Type Condition ICD9-CM Code RXM10-RH Code Onset Dates Condition Status SNOMED Code Problem Chronic pain G89.29 Active 24243707 Problem HSV (herpes simplex virus) infection B00.9 Active 88350146 Problem Gastroesophageal reflux disease without esophagitis K21.9 Active 175518202 Problem Type 2 diabetes mellitus with diabetic neuropathy, unspecified E11.40 Active 14604685 Problem 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 Active 860899059 Problem Edema of both feet R60.0 Active 751474356 Problem Tobacco abuse Z72.0 Active 26225771 Problem Chronic migraine G43.709 Active 80394756 Problem Mixed hyperlipidemia E78.2 Active 173183275 Problem Spinal stenosis, lumbar region M48.06 Active 48535141 Problem Anxiety F41.9 Active 44347164 Problem Radiculopathy of lumbar region M54.16 Active 227248081 Problem Bulging lumbar disc M51.26 Active 056736575 Problem Asthma J45.909 Active 003646957 Problem Essential hypertension I10 Active 64438589 ALLERGIES Substance Reaction Event Type Date Status Prozac severe nightmares Drug Allergy May, Active Levaquin Unknown Drug Allergy May, Active Diclofenac Sodium rash Drug Allergy May, Active ChloraPrep One Step Unknown Drug Allergy May, Active Quinolones Unknown Non Drug Allergy May, Active ENCOUNTERS Encounter Location Date Diagnosis [facility] [address] [facility] [id number], [place] [address] Jan, [facility] [address] [facility] [id number], [place] [address] Jan, [facility] 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 Z79.4 [facility] [address] [place] [id number] [place] [address] 12741- 0573 09 Jan, 2018 Encounter for Depo-Provera contraception Z30.42 [facility] [address] [place] [id number] [place] [address] 13635- 5190 Jan, [facility] [address] [id number] [place] [address] 96740- 6015 Jan, Chronic pain G89.29 and Anxiety F41.9 [facility] [address] 44837- 8379 Jan, [facility] [address] 43610- 0786 Dec, [facility] [address] 44108- 8465 Dec, Gastroesophageal reflux disease without esophagitis K21.9 and Anxiety F41.9 [facility] [address] [place] [id number] [place] [address] 38261- 7587 Dec, Essential hypertension I10 ; Mixed hyperlipidemia E78.2 ; Type 2 diabetes mellitus with diabetic neuropathy, unspecified E11.40 ; 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 ; Chronic pain G89.29 ; HSV (herpes simplex virus) infection B00.9 ; Anxiety F41.9 and Gastroesophageal reflux disease without esophagitis K21.9 [facility] [address] [place] [id number] [place] [address] 66910- 7716 Dec, Chronic pain G89.29 and Chronic migraine G43.709 [facility] [address] [place] [id number] [place] [address] 24514- 2895 Nov, [facility] [address] 96187- 7302 Nov, Essential hypertension I10 and Chronic pain G89.29 [facility] [address] [place] [id number] [place] [address] 91308- 0033 Nov, Chronic pain G89.29 ; Essential hypertension I10 and Type 2 diabetes mellitus without complication E11.9 [facility] [address] [place] [id number] [place] [address] 21808- 7959 Oct, Chronic pain G89.29 [facility] [address] [place] [id number] [place] [address] 81595- 4479 Oct, [facility] [address] [id number] [place] [address] 96528- 0318 Sep, Type 2 diabetes mellitus without complication E11.9 ; Essential hypertension I10 ; FPC (current) use of insulin Z79.4 ; Chronic migraine G43.709 ; Chronic pain G89.29 and Acute non-recurrent maxillary sinusitis J01.00 [facility] [address] [id number] [place] [address] 77060- 8771 19 Sep, 2017 Encounter for Depo-Provera contraception Z30.42 [facility] [address] [id number] [place] [address] 79375- 8321 Sep, Chronic pain G89.29 and Radiculopathy of lumbar region M54.16 [facility] [address] [place] [id number] [place] [address] 87811- 4436 Sep, [facility] [address] [place] [id number] [place] [address] 16004- 0392 Sep, [facility] [address] [id number] [place] [address] 46380- 4833 Aug, Type 2 diabetes mellitus without complication E11.9 [facility] [address] [place] [id number] [place] [address] 02178- 2095 Aug, [facility] [id number] [place] [address] 74219- 1964 Aug, Radiculopathy of lumbar region M54.16 and Chronic pain G89.29 [facility] [address] [id number] [place] [address] 66564- 2611 09 Aug, 2017 Type 2 diabetes mellitus without complication E11.9 [facility] [address] [facility] [id number], [place] [address] 4446 Aug, Type 2 diabetes mellitus without complication E11.9 [facility] [address] [facility] [id number], [place] [address] 6336 Jul, Type 2 diabetes mellitus without complication E11.9 [facility] [address] [facility] [id number], [place] [address] 2546 Jul, [facility] [address] [facility] [id number], [place] [address] 2546 Jul, Chronic pain G89.29 [facility] [address] [facility] [id number], [place] [address] 0986 Jul, [facility] [address] [facility] [id number], [place] [address] 0166 Jul, [facility] [address], [place] [address] 8326 Jul, Type 2 diabetes mellitus without complication E11.9 [facility] [address] [facility] [id number], [place] [address]- 4056 Jul, [facility] [address] [facility] [id number], [place] [address] 2546 Jul, Type 2 diabetes mellitus without complication E11.9 [facility] [address] [facility] [id number], [place] [address] 2546 Jul, [facility] [address] [facility] [id number], [place] [address] 2546 Jul, [facility] [address] [facility] [id number], [place] [address] 2546 Jul, [facility] [address] [facility] [id number], [place] [address] 2546 Jun, Type 2 diabetes mellitus without complication E11.9 [facility] [address] [facility] [id number], [place] [address] 2546 Jun, Chronic migraine G43.709 ; Type 2 diabetes mellitus without complication E11.9 ; Calculus of right kidney N20.0 ; Yeast dermatitis B37.2 and HSV (herpes simplex virus) infection B00.9 [facility] [address] 57916- 7103 Jun, Type 2 diabetes mellitus without complication E11.9 [facility] [address] 11520- 1573 Jun, [facility] [address] 70316- 1167 Jun, Radiculopathy of lumbar region M54.16 and Chronic pain G89.29 [facility] [address] 48934- 7992 Jun, Encounter for Depo-Provera contraception Z30.42 [facility] [address] 45086- 0629 Jun, Type 2 diabetes mellitus without complication E11.9 [facility] [address] 68606- 9328 Jun, [facility] [address] 58474 -8083 May, Acute nasopharyngitis (common cold) J00 [facility] [address] 41908- 9594 May, Chronic pain G89.29 [facility] [address] 20193- 5334 May, Headache following lumbar puncture G97.1 [facility] [address] 81166- 4373 May, Radiculopathy of lumbar region M54.16 [facility] [address] 04434- 6371 Apr, [facility] [address] 36449- 1455 Apr, Type 2 diabetes mellitus without complication E11.9 ; Chronic pain G89.29 ; Essential hypertension I10 ; Radiculopathy of lumbar region M54.16 ; Spinal stenosis, lumbar region M48.06 ; Gastroesophageal reflux disease without esophagitis K21.9 ; HSV (herpes simplex virus) infection B00.9 ; Mixed hyperlipidemia E78.2 ; Anxiety F41.9 and Asthma J45.[address] 30329- 2400 Apr, Encounter for Depo-Provera contraception Z30.[address] 18681- 5549 Apr, Chronic pain G89.29 and Anxiety F41.[address] 39122- 2060 Mar, [address] 82061- 2853 Mar, [address] 51060- 3544 Mar, Mixed hyperlipidemia E78.[address] 33199- 4389 Mar, Type 2 diabetes mellitus without complication E11.9 ; Chronic pain G89.29 ; Essential hypertension I10 ; Radiculopathy of lumbar region M54.16 ; Spinal stenosis, lumbar region M48.06 ; Gastroesophageal reflux disease without esophagitis K21.9 ; HSV (herpes simplex virus) infection B00.9 ; Mixed hyperlipidemia E78.2 and Anxiety F41.[address] 88019- 9111 Mar, [address] 92011- 7657 Mar, [address] 01594- 5594 Mar, [address] [id number], [place] [address]- 2931 February, Chronic pain G89.29 [facility] [id number] [place] [address] 12685- 1215 February, [facility] [address] [place] [id number] [place] [address] 23005- 5879 Jan, Chronic pain G89.29 [facility] [address] [place] [id number] [place] [address] 64136- 4594 Jan, Type 2 diabetes mellitus without complication E11.9 [facility] [address] [id number] [place] [address] 84773- 5539 Jan, [facility] [address] [place] [id number] [place] [address] 14923- 8329 Jan, [facility] [address] [place] [id number] [place] [address] 72127- 6389 Jan, [facility] [address] [place] [id number] [place] [address] 55195- 7460 Jan, Type 2 diabetes mellitus without complication [...] J01.00 and Encounter for Depo-Provera contraception Z30.42 [facility] [address], [place] [address]- 1850 Dec, Chronic pain G89.29 [facility] [id number] [place] [address] 63154- 2530 Dec, Abnormal ankle brachial index (BERNARDINO) R68.89 [facility] [address] [place] [id number] [place] [address] 05219- 4929 Dec, [facility] [address], [place] [address]- 1120 15 Dec, 2016 Routine gynecological examination Z01.419 [...] virus) infection B00.9 and Allergic rhinitis 477.9 [facility] [address] [place] [id number] [place] [address] 17280- 9889 28 Nov, 2016 Chronic pain G89.29 [facility] [address] [place] [id number] [place] [address] 15213- 8943 02 Nov, 2016 Chronic pain G89.29 ; [...] mucoid otitis media of both ears H65.113 [facility] [address], [place] [address]- 6539 Oct, [facility] [address] [place] [id number] [place] [address] 81601- 1285 Oct, Chronic pain G89.29 [facility] [address] [place] [id number] [place] [address] 73065- 6110 Oct, Chronic pain G89.29 [facility] [address] [place] [id number] [place] [address] 71468- 2342 Sep, Chronic pain G89.29 ; Type 2 diabetes mellitus without complication E11.9 ; Essential hypertension I10 ; Radiculopathy of lumbar region M54.16 ; Spinal stenosis, lumbar region M48.06 ; Gastroesophageal reflux disease without esophagitis K21.9 ; Encounter for surveillance of injectable contraceptive Z30.42 ; Bilateral cold feet R20.9 ; Pain of left foot M79.672 and Pain in right foot M79.671 [facility] [address] [place] [id number] [place] [address] 49846- 6233 05 Sep, 2016 [facility] [address] 74827- 6559 Aug, [facility] [address] [place] [id number] [place] [address] 66082- 2766 Aug, [facility] [address] 72320- 2814 Aug, Chronic pain G89.29 ; Type 2 diabetes mellitus without complication E11.9 ; Essential hypertension I10 ; Rash and nonspecific skin eruption R21 and Upper respiratory infection, acute J06.9 [facility] [address] 70701- 8928 08 Aug, 2016 [facility] [address] [place] [id number] [place] [address] 26509- 1262 Aug, [facility] [address] 97881- 9476 Jul, [facility] [address] [place] [id number] [place] [address] 78897- 5753 Jul, Dysuria R30.0 ; Encounter for Depo-Provera contraception Z30.42 ; Herpes simplex B00.9 ; Nausea & vomiting R11.2 and Asthma J45.909 [facility] [address] [place] [id number] [place] [address] 59859- 3347 Jun, Dysuria R30.0 [facility] [address] 07562- 1595 19 Jun, 2016 Dysuria R30.0 [facility] [address] 51267- 0049 15 Jun, 2016 [facility] [address] [place] [address] 23717- 5854 Jun, [facility] [address] [place] [id number] [place] [address] 36181- 8121 May, [facility] [address] [place] [id number] [place] [address] 87626- 5066 May, [facility] [address] [place] [id number] [place] [address] 43875- 2864 May, Chronic pain G89.29 ; Essential hypertension I10 ; Type 2 diabetes mellitus without complication E11.9 ; Edema of both feet R60.0 and Rash and nonspecific skin eruption R21 [facility] [address] [place] [id number] [place] [address] 94090- 6076 Apr, [facility] [address] [place] [id number] [place] [address] 27477- 2894 Mar, Carpal tunnel syndrome, left upper limb G56.02 and Carpal tunnel syndrome, right upper limb G56.01 [facility] [address] [place] [id number] [place] [address] 75185- 1177 Mar, [facility] [address] [place] [id number] [place] [address] 17902- 2055 Mar, Encounter for Depo-Provera contraception Z30.42 [facility] [address] [place] [id number] [place] [address] 29416- 1193 February, [facility] [address] [place] [id number] [place] [address] 72132- 0479 February, [facility] [address] [place] [id number] [place] [address] 30197- 3370 February, Chronic pain G89.29 ; Essential hypertension I10 ; Type 2 diabetes mellitus without complication E11.9 ; HSV (herpes simplex virus) infection B00.9 ; Anxiety F41.9 ; Hypersomnia G47.10 ; Tobacco abuse Z72.0 ; Hand pain, left M79.642 ; Hand pain, right M79.641 ; Left foot pain M79.672 and Heart palpitations R00.2 [facility] [address] [place] [id number] [place] [address] 91429- 1937 Jan, [facility] [address] [place] [id number] [place] [address] 00777- 2616 Jan, [facility] [address] [place] [id number] [place] [address] 47443- 5989 Jan, [facility] [address] 57873- 0652 Jan, [facility] [address] 05138- 5565 Jan, Upper respiratory infection J06.9 and Type 2 diabetes mellitus without complication E11.9 [facility] [address] 46939- 1906 Dec, [facility] [address] 35149- 2547 Dec, Chronic pain G89.29 ; Essential hypertension I10 ; Type 2 diabetes mellitus without complication E11.9 ; HSV (herpes simplex virus) infection B00.9 ; Anxiety F41.9 ; Upper respiratory infection J06.9 ; Hypersomnia G47.10 and Tobacco abuse Z72.0 [facility] [place] [id number] [place] [address] 34965- 3455 Dec, Encounter for Depo-Provera contraception Z30.42 [facility] [address] [place] [id number] [place] [address] 12345- 8229 Dec, [place] [place] [id number] [place] [address] 36212- 2002 Dec, Chronic pain G89.29 ; Sinusitis J32.9 ; Snoring R06.83 and Daytime hypersomnia G47.19 [place] [id number] [place] [address] 50559- 3139 Nov, HSV (herpes simplex virus) infection B00.9 ; Encounter for Papanicolaou smear for cervical cancer screening Z12.4 ; Screening for STD sexually transmitted disease Z11.3 and Bartholin's gland cyst N75.0 [facility] [address] [place] [id number] [place] [address] 48029- 6590 22 Nov, 2015 [facility] [address] [place] [id number] [place] [address] 93060- 3440 Nov, [facility] [address] 93346- 7280 Nov, Essential hypertension I10 ; Type 2 diabetes mellitus without complication E11.9 ; HSV (herpes simplex virus) infection B00.9 ; Spinal stenosis, lumbar region M48.06 and Vaginal yeast infection B37.3 [facility] [address] [place] [id number] [place] [address] 50300- 0547 Nov, [facility] [address] 23109- 5128 Nov, [facility] [address] [place] [id number] [place] [address] 28210- 8411 Oct, [facility] [address] [place] [id number] [place] [address] 03130- 8044 Oct, HSV (herpes simplex virus) infection B00.9 ; Yeast infection B37.9 ; Change in bowel habit R19.4 ; Nausea & vomiting R11.2 and Gastroesophageal reflux disease without esophagitis K21.9 [facility] [address] [place] [id number] [place] [address] 90633- 0543 Oct, [facility] [address] [place] [id number] [place] [address] 59803- 9097 Oct, Type 2 diabetes mellitus without complication E11.9 ; Essential hypertension I10 and Acute maxillary sinusitis, recurrence not specified J01.00 [facility] [address] [place] [id number] [place] [address] 56116- 7379 Oct, [facility] [address] 66828- 9603 Oct, [place] [id number] [place] [address] 33330- 9086 Oct, Exposure to head lice Z20.7 ; Blood glucose abnormal R73.09 ; Boil of buttock L02.32 and Type 2 diabetes mellitus without complication E11.[address] 33213- 2395 Oct, [address] 35050- 3880 Sep, [address] 11134- 0248 Sep, [address] 58120- 9512 Aug, Encounter for Depo-Provera contraception Z30.[address] 75555- 1597 Aug, Anxiety F41.9 ; Spinal stenosis, lumbar region M48.06 ; Radiculopathy of lumbar region M54.16 ; Asthma J45.909 ; GERD (gastroesophageal reflux disease) K21.9 ; Essential hypertension I10 and Long-term use of high- risk medication Z79.[address] 26463- 4451 Jul, [address] 63985- 6989 Jun, Hemorrhoid 455.[address] 03558- 2124 Jun, [address] 37222- 9555 Jun, Anxiety 300.00 ; Asthma 493.90 ; Hyperhidrosis 705.21 ; Chest discomfort 786.59 and Upper respiratory infection 465.[address] [place] [address]- 6486 May, Encounter for Depo-Provera contraception V25.49 [facility] [address] 23318- 8913 May, [facility] [address] 91396- 5442 May, [facility] [address] 62611- 3807 May, Spinal stenosis of lumbar region with radiculopathy 724.02 ; Bulging of intervertebral disc between L4 and L5 722.10 ; GERD ( gastroesophageal reflux disease) 530.81 ; Chronic pain 338.29 ; Declining mobility 799.89 and Epigastric pain 789.06 [facility] [address] 52959- 0349 Apr, [address] 91501- 2789 Apr, Nausea 787.02 and Heart burn 787.[address] 07577- 2210 Mar, Lumbago 724.2 ; Vitamin D deficiency 268.9 ; Anxiety 300.00 ; Allergic rhinitis 477.9 and Contraceptive surveillance V25.40 [facility] [address] [place] [id number] [place] [address] 53817- 4183 February, 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 ; Chronic pain 338.29 and Vaginal discharge 623.5 [facility] [address] [place] [id number] [place] [address] 93792- 1337 February, [facility] [address] 07733- 4863 February, [facility] [address] 91759- 1816 Jan, [facility] [address] 88840- 7466 13 Jan, 2015 [facility] [place] [facility] [address] [id number] [place] [address]- 2392 Dec, [facility] [place] [facility] [address] [id number] [place] 6748 Dec, [facility] [place] [facility] [address] [id number] [place] [address]- 9748 Dec, [facility] [place] [facility] [address] [id number] [place] [address]- 9718 Dec, [facility] [place] [facility] [address] [id number] [place] [address]- 5974 Dec, [facility] [place] [facility] [address] [id number] [place] [address]- 8806 18 Dec, 2014 [facility] [place] [facility] [address] [id number] [place] [address]- 7587 Dec, [facility] [place] [facility] [address] [id number] [place] [address]- 9467 Dec, [facility] [place] [facility] [address] [id number] [place] [address]- 3645 Dec, [facility] [place] [facility] [address] [id number] [place] [address]- 3085 Dec, [facility] [place] [facility] [address] [id number] [place] [address]- 1621 Dec, [facility] [place] [facility] [address] [id number] [place] [address]- 9056 Dec, [facility] [place] [facility] [address] [id number] [place] [address]- 7476 Nov, [facility] [place] [facility] [address] [id number] [place] [address]- 1253 Nov, [facility] [place] [facility] [address] [id number] [place] [address]- 6588 24 Nov, 2014 [facility] [place] [facility] [address] [id number] [place] [address]- 1731 24 Nov, 2014 [facility] [place] [facility] [address] [id number] [place] [address]- 5266 23 Nov, 2014 [facility] [place] [facility] [address] [id number] [place] [address] 2546 23 Nov, 2014 [facility] [place] [facility] [address] [id number] [place] [address] 2540 16 Nov, 2014 [facility] [place] [facility] [address] [id number] [place] [address]- 2542 16 Nov, 2014 [facility] [place] [facility] [address] [id number] [place] [address] 13 Nov, 2014 [facility] [place] [facility] [address] [facility] [id number] [place] [address] 13 Nov, 2014 [facility] [place] [facility] [address] [id number] [place] [address] 13 Nov, 2014 [facility] [place] [facility] [address] [id number] [place] [address] 13 Nov, 2014 [facility] [place] [facility] [address] [facility] [id number] [place] [address] 13 Nov, 2014 [facility] [place] [facility] [address] [facility] [id number] [place] [address] 13 Nov, 2014 [facility] [place] [facility] [address] [id number] [place] [address] 13 Nov, 2014 [facility] [place] [facility] [address] [id number] [place] [address] 13 Nov, 2014 [facility] [place] [facility] [address] [id number] [place] [address] 10 Nov, 2014 [facility] [place] [facility] [address] [facility] [id number] [place] [address] 10 Nov, 2014 [facility] [place] [facility] [address] [id number] [place] [address] Nov, 2014 [facility] [place] [facility] [address] [id number] [place] [address] Nov, 2014 [facility] [place] [facility] [address] [id number] [place] [address] Nov, 2014 [facility] [place] [facility] [address] [id number] [place] [address] Nov, 2014 [facility] [place] [facility] [address] [id number] [place] [address] Nov, [facility] [place] [facility] [address] [id number] [place] [address] Oct, [facility] [place] [facility] [address] [id number] [place] [address] Oct, [facility] [place] [facility] [address] [id number] [place] [address] Oct, [facility] [place] [facility] [address] [id number] [place] [address]- 1464 Oct, [facility] [place] [facility] [address] [id number] [place] [address] 8673 Oct, [facility] [place] [facility] [address] [id number] [place] [address] 5936 Oct, [facility] [place] [facility] [address] [id number] [place] [address] 2447 Oct, [facility] [place] [facility] [address] [id number] [place] [address] 7372 Oct, [facility] [place] [facility] [address] [id number] [place] [address] 4321 Oct, [facility] [place] [facility] [address] [id number] [place] [address] 7162 Oct, [facility] [place] [facility] [address] [id number] [place] [address]- 1415 Oct, [facility] [place] [facility] [address] [id number] [place] [address] 4083 Oct, [facility] [place] [facility] [address] [id number] [place] [address] 2039 Oct, [facility] [place] [facility] [address] [id number] [place] [address]- 8694 Oct, [facility] [place] [facility] [address] [id number] [place] [address]- 8198 Oct, [facility] [place] [facility] [address] [id number] [place] [address]- 7993 Oct, [facility] [place] [facility] [address] [id number] [place] [address]- 9156 Oct, [facility] [place] [facility] [address] [id number] [place] [address]- 0707 Oct, [facility] [place] [facility] [address] [id number] [place] [address]- 2894 Oct, [facility] [place] [facility] [address] [id number] [place] [address]- 1604 Oct, [facility] [place] [facility] [address] [id number] [place] [address]- 2853 Oct, [facility] [place] [facility] [address] [id number] [place] [address]- 8732 Sep, [facility] [place] [facility] [address] [id number], [place] [address] 29 Sep, 2014 [facility] [place] [facility] [address] [id number] [place] [address]- 3116 18 Sep, 2014 [facility] [place] [facility] [address] [id number] [place] [address]- 5264 Sep, [facility] [place] [facility] [address] [id number] [place] [address]- 3484 17 Sep, 2014 [facility] [place] [facility] [address] [id number] [place] [address]- 2246 17 Sep, 2014 [facility] [place] [facility] [address] [id number] [place] [address]- 1976 15 Sep, 2014 [facility] [place] [facility] [address] [id number] [place] [address]- 0536 15 Sep, 2014 [facility] [place] [facility] [address] [id number] [place] [address]- 9456 12 Sep, 2014 [facility] [place] [facility] [address] [id number] [place] [address]- 9879 12 Sep, 2014 [facility] [place] [facility] [address] [id number] [place] [address]- 7040 11 Sep, 2014 [facility] [place] [facility] [address] [id number] [place] [address]- 4896 11 Sep, 2014 [facility] [place] [facility] [address] [id number] [place] [address]- 1344 11 Sep, 2014 [facility] [place] [facility] [address] [id number] [place] [address]- 5653 Sep, [facility] [place] [facility] [address] [id number] [place] [address]- 7981 Sep, [facility] [place] [facility] [address] [id number] [place] [address]- 1593 11 Sep, 2014 [facility] [place] [facility] [address] [id number] [place] [address]- 1789 10 Sep, 2014 [facility] [place] [facility] [address] [id number] [place] [address]- 3415 Sep, [facility] [place] [facility] [address] [id number] [place] [address]- 5383 08 Sep, 2014 [facility] [place] [facility] [address] [id number] [place] [address]- 6513 08 Sep, 2014 [facility] [place] [facility] [address] [id number] [place] [address]- 6458 Aug, [facility] [place] [facility] [address] [id number] [place] [address]- 3810 Aug, [facility] [place] [facility] [address] [id number] [place] [address]- 8449 Aug, [facility] [place] [facility] [address] [id number] [place] [address]- 5075 Aug, [facility] [place] [facility] [address] [id number] [place] [address]- 2339 Aug, [facility] [place] [facility] [address] [id number] [place] [address]- 3309 Aug, [facility] [place] [facility] [address] [id number] [place] [address]- 9069 Aug, [facility] [place] [facility] [address] [id number] [place] [address]- 6838 Aug, [facility] [place] [facility] [address] [id number] [place] [address]- 7011 Aug, [facility] [place] [facility] [address] [id number] [place] [address]- 5027 Jul, [facility] [place] [facility] [address] [id number] [place] [address]- 4628 Jul, [facility] [place] [facility] [address] [id number] [place] [address]- 0937 Jul, [facility] [place] [facility] [address] [id number] [place] [address]- 6033 Jul, [facility] [place] [facility] [address] [id number] [place] [address]- 4786 Jul, [facility] [place] [facility] [address] [id number] [place] [address]- 4930 Jul, [facility] [place] [facility] [address] [id number] [place] [address]- 7032 Jul, [facility] [place] [facility] [address] [id number] [place] [address]- 1369 13 Jul, 2014 [facility] [place] [facility] [address] [id number] [place] [address]- 4229 10 Jul, 2014 [facility] [place] [facility] [address] [id number] [place] [address]- 8486 10 Jul, 2014 [facility] [place] [facility] [address] [id number] [place] [address]- 6056 10 Jul, 2014 [facility] [place] [facility] [address] [id number] [place] [address]- 7995 10 Jul, 2014 [facility] [place] [facility] [address] [id number] [place] [address]- 5910 Jul, [facility] [place] [facility] [address] [id number] [place] [address]- 3991 07 Jul, 2014 [facility] [place] [facility] [address] [id number] [place] [address]- 7148 30 Jun, 2013 [facility] [place] [facility] [address] [id number] [place] [address]- 0037 30 Sep, 2013 [facility] [place] [facility] [address] [id number] [place] [address] 254 25 Sep, 2013 [facility] [place] [facility] [address] [id number] [place] [address]- 2546 25 Sep, 2013 [facility] [place] [facility] [address] [id number] [place] [address]- 7542 25 Sep, 2013 [facility] [place] [facility] [address] [id number], [place] [address] 2546 25 Sep, 2013 [facility] [place] [facility] [address] [id number] [place] [address] 2546 24 Sep, 2013 [facility] [place] [facility] [address] [id number] [place] [address]- 2548 24 Sep, 2013 [facility] [place] [facility] [address] [id number] [place] [address]- 2546 22 Jun, 2013 [facility] [place] [facility] [address] [id number] [place] [address]- 4565 22 Sep, 2013 [facility] [place] [facility] [address] [id number] [place] [address] 2546 17 Sep, 2013 [facility] [place] [facility] [address] [id number] [place] [address] 2546 17 Sep, 2013 [facility] [place] [facility] [address] [id number] [place] [address] 2547 16 Sep, 2013 [facility] [place] [facility] [address] [id number] [place] [address] 2543 16 Sep, 2013 [facility] [place] [facility] [address] [id number] [place] [address]- 2991 15 Sep, 2013 [facility] [place] [facility] [address] [id number] [place] [address]- 1464 15 Sep, 2013 [facility] [place] [facility] [address] [id number] [place] [address]- 1097 12 Sep, 2013 [facility] [place] [facility] [address] [id number] [place] [address]- 2540 12 Sep, 2013 [facility] [place] [facility] [address] [id number] [place] [address] 2549 11 Sep, 2013 [facility] [place] [facility] [address] [id number] [place] [address]- 2547 11 Sep, 2013 [facility] [place] [facility] [address] [id number] [place] [address] 254 11 Sep, 2013 [facility] [place] [facility] [address] [id number] [place] [address]- 2548 11 Sep, 2013 [facility] [place] [facility] [address] [id number] [place] [address] 2547 09 Sep, 2013 [facility] [place] [facility] [address] [id number] [place] [address]- 2540 09 Sep, 2013 [facility] [place] [facility] [address] [id number] [place] [address]- 2231 Jun, [facility] [place] [facility] [address] [id number] [place] [address]- 5947 Jun, [facility] [place] [facility] [address] [id number] [place] [address]- 9304 May, [facility] [place] [facility] [address] [id number] [place] [address]- 1286 May, [facility] [place] [facility] [address] [id number] [place] [address]- 7306 May, [facility] [place] [facility] [address] [id number] [place] [address]- 0376 May, [facility] [place] [facility] [address] [id number] [place] [address]- 9140 May, [facility] [place] [facility] [address] [id number] [place] [address]- 6808 May, [facility] [place] [facility] [address] [id number] [place] [address]- 9583 May, [facility] [place] [facility] [address] [id number] [place] [address]- 8472 May, [facility] [place] [facility] [address] [id number] [place] [address]- 5122 May, [facility] [place] [facility] [address] [id number] [place] [address]- 7125 May, [facility] [place] [facility] [address] [id number] [place] [address]- 1621 May, [facility] [place] [facility] [address] [id number] [place] [address]- 0064 May, [facility] [place] [facility] [address] [id number] [place] [address]- 3069 May, [facility] [place] [facility] [address] [id number] [place] [address]- 5500 Apr, [facility] [place] [facility] [address] [id number] [place] [address]- 8388 Apr, [facility] [place] [facility] [address] [id number] [place] [address]- 1615 Apr, [facility] [place] [facility] [address] [id number] [place] [address] Apr, [facility] [place] [facility] [address] [id number] [place] [address]- 4255 Apr, [facility] [place] [facility] [address] [id number] [place] [address]- 9009 Mar, [facility] [place] [facility] [address] [id number] [place] [address]- 4405 Mar, [facility] [place] [facility] [address] [id number] [place] [address]- 0744 Mar, [facility] [place] [facility] [address] [id number] [place] [address]- 3872 February, [facility] [place] [facility] [address] [id number] [place] [address]- 4335 February, [facility] [place] [facility] [address] [id number] [place] [address]- 4406 February, [facility] [place] [facility] [address] [id number] [place] [address]- 7026 February, [facility] [place] [facility] [address] [id number] [place] [address]- 4328 February, [facility] [place] [facility] [address] [id number] [place] [address]- 9530 February, [facility] [place] [facility] [address] [id number] [place] [address]80 February, [facility] [place] [facility] [address] [id number] [place] February, [facility] [place] [facility] [address] [id number] [place] February, [facility] [place] [facility] [address] [id number] [place] [address]- 7621 Jan, [facility] [place] [facility] [address] [id number] [place] [address]- 5808 Jan, [facility] [place] [facility] [address] [id number] [place] [address]- 1709 Jan, [facility] [place] [facility] [address] [id number] [place] [address]- 5673 Jan, [facility] [place] [facility] [address] [id number] [place] [address]- 6489 Jan, [facility] [place] [facility] [address] [id number] [place] [address]- 1983 Dec, [facility] [place] [facility] [address] [id number] [place] [address]- 0646 Dec, [facility] [place] [facility] [address] [id number] [place] [address]- 6430 Dec, [facility] [place] [facility] [address] [id number] [place] [address]- 7769 Dec, [facility] [place] [facility] [address] [id number] [place] [address]- 2845 Dec, [facility] [place] [facility] [address] [id number] [place] [address]- 8101 Nov, [facility] [place] [facility] [address] [id number] [place] [address]- 0418 Nov, [facility] [place] [facility] [address] [id number] [place] [address]- 3794 Nov, [facility] [place] [facility] [address] [id number] [place] [address]- 9133 Nov, [facility] [place] [facility] [address] [id number] [place] [address]- 3839 Oct, [facility] [place] [facility] [address] [id number] [place] [address]- 0272 Oct, [facility] [place] [facility] [address] [id number] [place] [address]- 6157 Oct, [facility] [place] [facility] [address] [id number] [place] [address]- 9994 Oct, [facility] [place] [facility] [address] [id number] [place] [address]- 6604 Oct, [facility] [place] [facility] [address] [id number] [place] [address]- 3995 Oct, [facility] [place] [facility] [address] [id number] [place] [address]- 5927 Oct, [facility] [place] [facility] [address] [id number] [place] [address]- 7906 Oct, [facility] [place] [facility] [address] [id number] [place] [address]- 0549 Oct, [facility] [place] [facility] [address] [id number] [place] [address]- 4406 Oct, [facility] [place] [facility] [address] [id number] [place] [address]- 9869 Aug, [facility] [place] [facility] [address] [id number] [place] [address]- 4942 Aug, [facility] [place] [facility] [address] [id number], [place] [address]- 0557 Jul, [facility] [place] [facility] [address] [id number], [place] [address]- 7220 Jul, [facility] [place] [facility] [address] [id number] [place] [address]- 9447 Jul, [facility] [place] [facility] [address] [id number], [place] [address]- 0180 Jul, [facility] [place] [facility] [address] [id number], [place] [address]- 4126 Jul, [facility] [place] [facility] [address] [id number] [place] [address]- 7981 08 Jul, 2013 [facility] [address] [id number] [place] [address]- 3294 Apr, [facility] [place] [facility] [address] [id number] [place] [address] 2546 Dec, [facility] [place] [facility] [address] [id number] [place] [address]- 3366 Nov, [facility] [place] [facility] [address] [id number] [place] [address]- 4973 Nov, [facility] [address] [id number] [place] [address]- 0946 Nov, [facility] [place] [facility] [address] [id number] [place] [address]- 8828 16 Oct, 2012 [facility] [place] [facility] [address] [id number] [place] [address]- 4846 Sep, [facility] [address] [id number] [place] [address]- 1831 Sep, [facility] [place] [facility] [address] [id number] [place] [address]- 9117 Sep, [facility] [address] [id number] [place] 2458 Sep, [facility] [place] [facility] [address] [id number] [place] [address]- 2061 Aug, [facility] [place] [facility] [address] [id number] [place] [address] 2544 Aug, [facility] [place] [facility] [address] [id number] [place] [address]- 6198 Jul, [facility] [place] [facility] [address] [id number] [place] [address]- 1066 Jul, [facility] [place] [facility] [address] [id number] [place] [address]- 8786 28 Jun, 2012 [facility] [place] [facility] [address] [id number] [place] [address]- 5771 26 Jun, 2012 [facility] [place] [facility] [address] [id number] [place] [address]- 6186 24 Jun, 2012 [facility] [place] [facility] [address] [id number] [place] [address]- 7124 24 Jun, 2012 [facility] [place] [facility] [address] [id number] [place] [address]- 5732 12 Jun, 2012 [facility] [place] [facility] [address] [id number] [place] [address]- 9651 31 Apr, 2012 [facility] [place] [facility] [address] [id number] [place] [address]- 3123 30 Apr, 2012 [facility] [place] [facility] [address] [id number] [place] [address]- 0186 Apr, [facility] [place] [facility] [address] [id number] [place] [address]- 4468 Mar, [facility] [place] [facility] [address] [id number] [place] [address]- 5269 Mar, [facility] [place] [facility] [address] [id number] [place] [address]- 3073 Mar, [facility] [place] [facility] [address] [id number] [place] [address]- 3680 February, [facility] [place] [facility] [address] [id number] [place] [address]- 7046 Jan, [facility] [place] [facility] [address] [id number] [place] [address]- 2210 Dec, [facility] [place] [facility] [address] [id number] [place] [address]- 3731 Dec, [facility] [place] [facility] [address] [id number] [place] [address]89 Dec, [facility] [place] [facility] [address] [id number] [place] [address]- 2852 19 Dec, 2011 [facility] [address] [id number] [place] [address]- 9346 12 Dec, 2011 [facility] [place] [facility] [address] [id number] [place] [address]- 8177 14 Nov, 2011 [facility] [place] [facility] [address] [id number] [place] [address]- 8466 13 Nov, 2011 [facility] [place] [facility] [address] [id number] [place] [address]- 7234 Oct, [facility] [place] [facility] [address] [id number] [place] [address]- 2706 Oct, [facility] [place] [facility] [address] [id number] [place] [address]- 5621 Oct, [facility] [address] [id number] [place] [address]- 7713 Sep, [facility] [place] [facility] [address] [id number] [place] [address]- 5763 Aug, [facility] [place] [facility] [address] [id number] [place] [address]- 8524 Aug, [facility] [place] [facility] [address] [id number] [place] [address]- 8267 28 Jul, 2011 [facility] [place] [facility] [address] [id number] [place] [address]- 7673 24 Jul, 2011 [facility] [place] [facility] [address] [id number] [place] [address]- 7919 19 Jul, 2011 [facility] [place] [facility] [address] [id number] [place] [address]- 6536 13 Jan, 2011 [facility] [place] [facility] [address] [id number] [place] [address]- 8759 29 Sep, 2010 [facility] [place] [facility] [address] [id number] [place] [address]- 2527 27 Sep, 2010 [facility] [place] [facility] [address] [id number] [place] [address]- 5500 Sep, [facility] [place] [facility] [address] [id number] [place] [address] Sep, [facility] [place] [facility] [address] [id number] [place] [address] Sep, [facility] [place] [facility] [address] [id number] [place] [address] Aug, [facility] [place] [facility] [address] [id number] [place] [address] 16 Aug, 2010 [facility] [place] [facility] [address] [id number] [place] [address] Aug, [facility] [place] [facility] [address] [id number] [place] [address] Jul, [facility] [place] [facility] [address] [id number] [place] [address] Jul, [facility] [place] [facility] [address] [id number] [place] [address] Jul, [facility] [place] [facility] [address] [id number] [place] [address] May, [facility] [place] [facility] [address] [id number] [place] [address] 13 Apr, 2010 [facility] [place] [facility] [address] [id number] [place] [address] Dec, [facility] [place] [facility] [address] [id number] [place] [address] 17 Sep, 2009 [facility] [place] [facility] [address] [id number] [place] [address] 17 Sep, 2009 [facility] [place] [facility] [address] [id number] [place] [address] 11 Aug, 2009 [facility] [place] [facility] [address] [id number] [place] [address] Aug, [facility] [address] [facility] [id number] [place] [address] Jul, [facility] [address] [facility] [id number], [place] [address] Mar, IMMUNIZATIONS Vaccine Route Administration Date Status DEXAMETHASONE 4MG/ML (PER 1 MG) IM Intramuscular Jun 18, 2017 Administered DEPO MEDROL 40 MG/ML IM Intramuscular Jun 18, 2017 Administered SOCIAL HISTORY Never Assessed REASON FOR VISIT pt went to via [facility] 2 weeks ago for H/A and neck pain. she didnt like that they did a spinal tap...so she went to [place] [facility]. was dx with sinusitis. now for past 3 days...has sinus congestion and low grade temp at [facility]. [email or web address] PLAN OF CARE Activity Details Follow Up prn Reason: VITAL SIGNS Height 63 in 2017-06-18 Weight 210.4 lbs 2017-06-18 Temperature 98.2 degrees Fahrenheit 2017-06-18 Heart Rate 88 bpm 2017-06-18 Respiratory Rate 20 2017-06-18 BMI 37.27 kg/m2 2017-06-18 Blood pressure systolic 130 mmHg 2017-06-18 Blood pressure diastolic 84 mmHg 2017-06-18 MEDICATIONS Medication Instructions Dosage Frequency Start Date End Date Duration Status Trulicity 1.5 MG/0.5ML Subcutaneous once weekly 0.5 ml Apr, Jul, 30 day(s) Active Nystatin 430359 UNIT/GM Externally three times a day 1 application to affected area 8h Oct, Active MS Contin 15 MG Orally every 12 hrs as needed must last 28 days 1 tablet May, Active Hydrocodone-Acetaminophen 5-325 MG Orally four times a day as needed for pain. Must last 28 days. 1 tablet Active Flonase 50 mcg/act Nasally Once a day 1 sprays by Nasal route 2 times per day in each nostril 24h 30 days Active Lidocaine 5 % Externally Three times a day 1 application to affected area as needed 8h Active Clorazepate Dipotassium 15 MG Orally 3 times a day prn must last 28 days. 1 tablet 28 Active Cane 1 as directed 24h May, 99 days Active Imitrex 100 MG Orally Once a day prn 1 tablet by Oral route 1 time per day and repeat once more after 2 hours if headache recurs PRN 04 May, 2014 Active Carafate 1 GM orally twice daily 1 tablet Active ProAir HFA 108 (90 Base) MCG/ACT Inhalation every 4 hrs prn 2 puffs as needed Jun, 30 days Active Metoprolol Tartrate 25 MG Orally Twice a day 1 tablet with food 12h Active Cefdinir 300 MG Orally every 12 hrs 1 capsule 12h Active Lisinopril 5 MG Orally Once a day 1 tablet 24h 30 day(s) Active Hydrocodone-Acetaminophen 5-325 MG TAKE ONE TABLET BY MOUTH FOUR TIMES DAILY NEEDED FOR PAIN (MUST LAST 28 DAYS) May, 28 Active Zovirax 5 % Externally Twice a day 1 application to affected area 12h Active Robaxin 500 MG Orally 3 times a day 1 tablet 8h Active Glimepiride 2 MG Orally twice a day 1 tablet 12h 90 Active Nabumetone 500 mg Orally Twice a day 1 tablet 12h 7 Aug, 2017 90 days Active Valacyclovir HCl 1 GM Orally every 24 hrs 1 tablet 30 Active Fenofibrate 145 MG Orally Once a day 1 tablet 24h 27 Mar, 2017 30 day(s ) Active Symbicort 80-4.5 MCG/ACT Inhalation Twice a day 2 puffs 12h Jul, Active Lyrica 150 MG Orally Three times a day 1 capsule 8h Active Ezetimibe 10 MG Orally Once a day 1 tablet 24h 30 day(s) Active RESULTS No Results PROCEDURES Procedure Date Ordered Result Body Site DEPO MEDROL 40 MG/ML Jun 18, 2017 DEXAMETHASONE 4MG/ML (PER 1 MG) Jun 18, 2017 THER/PROPH/DIAG INJ, SC/IM Jun 18, 2017 INSTRUCTIONS MEDICATIONS ADMINISTERED No Known Medications [...]
--- OUTSIDE RECORDS SUMMARY | 2018-10-08 20:33 | XMS REPORT ---
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 Name Role Phone JENNY WOLF Unavailable PROBLEMS Type Condition ICD9-CM Code [id number] Code Onset Dates Condition Status SNOMED Code Problem Hypersomnia G47.10 Active 49234241 Problem Hand pain, left M79.642 Active 67415276 Problem Tobacco abuse Z72.0 Active 64731313 Problem Chronic migraine G43.709 Active 28777592 Problem Asthma J45.909 Active 483624894 Problem Calculus of right kidney N20.0 Active 02055482 Problem Spinal stenosis, lumbar region M48.06 Active 32783524 Problem Hand pain, right M79.641 Active 26152241 Problem Heart palpitations R00.2 Active 69624620 Problem Mixed hyperlipidemia E78.2 Active 348691496 Problem Edema of both feet R60.0 Active 321916619 Problem Bulging lumbar disc M51.26 Active 977829162 Problem Radiculopathy of lumbar region M54.16 Active 241107645 Problem Anxiety F41.9 Active 31858181 Problem Essential hypertension I10 Active 89667465 Problem HSV (herpes simplex virus) infection B00.9 Active 72043050 Problem Chronic pain G89.29 Active 04299155 Problem Type 2 diabetes mellitus without complication E11.9 Active 98958455 Problem Snoring R06.83 Active 99336554 Problem Gastroesophageal reflux disease without esophagitis K21.9 Active 207428585 Problem Daytime hypersomnia G47.19 Active [id number] ALLERGIES No Information SOCIAL HISTORY Never Assessed PLAN OF CARE VITAL SIGNS MEDICATIONS Unknown Medications RESULTS Name Result Date Reference Range Arterial Doppler, Lower Ext 2017-02-08 PROCEDURES No Known procedures IMMUNIZATIONS No Known [...] 2015 Hospitalization History Surgery(s) only Hospitalization History [place]-sepsis/[facility] 06/2017
--- OUTSIDE RECORDS SUMMARY | 2018-10-08 20:33 | XMS REPORT ---
Author Author JENNY WOLF 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 Active 079517153 Problem Edema of both feet R60.0 Active 870270549 Problem Tobacco abuse Z72.0 Active 70784600 Problem Chronic migraine G43.709 Active 86546390 Problem Mixed hyperlipidemia E78.2 Active 648602390 Problem Spinal stenosis, lumbar region M48.06 Active 95123575 Problem Anxiety F41.9 Active 81212592 Problem Radiculopathy of lumbar region M54.16 Active 325478055 Problem Bulging lumbar disc M51.26 Active 138076080 Problem Asthma J45.909 Active 817618345 Problem Essential hypertension I10 Active 90453710 ALLERGIES No Information ENCOUNTERS Encounter Location Date Diagnosis [facility] [id number], [place] [address] Mar, [facility] [address], [place] [address] Mar, [facility] [id number] [place] [address] 56584- 4951 Mar, Chronic pain G89.29 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 Z79.4 [place] [address] 92139- 6998 Jan, Encounter for Depo-Provera contraception Z30.42 [place] [address] 56702- 4171 Jan, [place] [address] 15999- 3057 Jan, Chronic pain G89.29 and Anxiety F41.9 [place] [address] 62725- 3244 Jan, [place] [address] 18867- 5592 Dec, [place] [address] 30927- 6582 Dec, Gastroesophageal reflux disease without esophagitis K21.9 and Anxiety F41.9 [place] [address] 18080- 3530 Dec, Essential hypertension I10 ; Mixed hyperlipidemia E78.2 ; Type 2 diabetes mellitus with diabetic neuropathy, unspecified E11.40 ; USP 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 Z79.4 ; Chronic pain G89.29 ; HSV (herpes simplex virus) infection B00.9 ; Anxiety F41.9 and Gastroesophageal reflux disease without esophagitis K21.9 [place] [address] 47374- 8947 Dec, Chronic pain G89.29 and Chronic migraine G43.709 [place] [address] 73247- 6455 Nov, [place] [id number] [place] [address] 55009- 7050 08 Nov, 2017 Essential hypertension I10 and Chronic pain G89.29 [place] [id number] [place] [address] 77691- 6996 05 Nov, 2017 Chronic pain G89.29 ; Essential hypertension I10 and Type 2 diabetes mellitus without complication E11.9 [place] [address] 83531- 5715 Oct, Chronic pain G89.29 [place] [id number] [place] [address] 37999- 0552 Oct, [place] [id number] [place] [address] 22505- 6822 Sep, Type 2 diabetes mellitus without complication E11.9 ; Essential hypertension I10 ; lobsterman (current) use of insulin Z79.4 ; Chronic migraine G43.709 ; Chronic pain G89.29 and Acute non-recurrent maxillary sinusitis J01.00 [place] [id number] [place] [address] 00739- 7732 Sep, Encounter for Depo-Provera contraception Z30.42 [place] [id number] [place] [address] 51556- 9588 Sep, Chronic pain G89.29 and Radiculopathy of lumbar region M54.16 [place] [id number] [place] [address] 79236- 5248 Sep, [place] [id number] [place] [address] 77520- 5394 Sep, [place] [address] 23977- 9907 Aug, Type 2 diabetes mellitus without complication E11.9 [place] [id number] [place] [address] 33455- 2177 Aug, [place] [address] 48382- 9238 Aug, Radiculopathy of lumbar region M54.16 and Chronic pain G89.29 [facility] [address], [place] [address] 5746 Aug, Type 2 diabetes mellitus without complication E11.9 [facility] [id number], [place] [address] 1186 Aug, Type 2 diabetes mellitus without complication E11.9 [facility] [address] [facility] [id number] [address] 9[address] Jul, Type 2 diabetes mellitus without complication E11.9 [facility] [address], [place] [address]- 6971 Jul, [facility] [id number], [place] [address] 3641 Jul, Chronic pain G89.29 [facility] [id number], [place] [address]- 8699 Jul, [facility] [id number], [place] [address]- 9070 Jul, [facility] [id number], [place] [address] 2749 Jul, Type 2 diabetes mellitus without complication E11.9 [facility] [address], [place] [address] 4004 Jul, [facility] [id number], [place] [address]- 4915 Jul, Type 2 diabetes mellitus without complication E11.9 [facility] [address] [facility] [id number], [place] [address]- 0859 Jul, [facility] [address] [facility] [id number] [address]- 3950 Jul, [facility] [address], [place] [address]- 0098 Jul, [place] [id number] [place] [address] 44811- 0790 Jun, Type 2 diabetes mellitus without complication E11.9 [place] [address] 91519- 7870 Jun, Chronic migraine G43.709 ; Type 2 diabetes mellitus without complication E11.9 ; Calculus of right kidney N20.0 ; Yeast dermatitis B37.2 and HSV (herpes simplex virus) infection B00.9 [place] [address] 10063- 8180 Jun, Type 2 diabetes mellitus without complication E11.9 [place] [address] 51078- 4181 Jun, [place] [address] 01883- 8375 Jun, Radiculopathy of lumbar region M54.16 and Chronic pain G89.29 [place] [id number] [place] [address] 60272- 4935 Jun, Encounter for Depo-Provera contraception Z30.42 [place] [address] 11274- 6415 Jun, Type 2 diabetes mellitus without complication E11.9 [place] [id number] [place] [address] 01245- 5401 Jun, [facility] [id number] [place] [address] 37352 -9876 May, Acute nasopharyngitis (common cold) J00 [place] [address] 94190- 2584 May, Chronic pain G89.29 [place] [address] 99635- 1358 May, Headache following lumbar puncture G97.1 [place] [address] 72121- 1445 May, Radiculopathy of lumbar region M54.16 [place] [id number] [place] [address] 15149- 8738 Apr, [place] [id number] [place] [address] 21494- 9432 Apr, Type 2 diabetes mellitus without complication E11.9 ; Chronic pain G89.29 ; Essential hypertension I10 ; Radiculopathy of lumbar region M54.16 ; Spinal stenosis, lumbar region M48.06 ; Gastroesophageal reflux disease without esophagitis K21.9 ; HSV (herpes simplex virus) infection B00.9 ; Mixed hyperlipidemia E78.2 ; Anxiety F41.9 and Asthma J45.909 [place] [id number] [place] [address] 47976- 1607 Apr, Encounter for Depo-Provera contraception Z30.42 [place] [address] 22698- 4074 Apr, Chronic pain G89.29 and Anxiety F41.9 [place] [id number] [place] [address] 30224- 8046 Mar, [place] [address] 95669- 5598 Mar, [place] [id number] [place] [address] 68151- 1857 Mar, Mixed hyperlipidemia E78.2 [place] [id number] [place] [address] 68506- 4257 Mar, Type 2 diabetes mellitus without complication E11.9 ; Chronic pain G89.29 ; Essential hypertension I10 ; Radiculopathy of lumbar region M54.16 ; Spinal stenosis, lumbar region M48.06 ; Gastroesophageal reflux disease without esophagitis K21.9 ; HSV (herpes simplex virus) infection B00.9 ; Mixed hyperlipidemia E78.2 and Anxiety F41.9 [place] [address] 39981- 0965 Mar, [facility] [address], [place] [address]- 8749 Mar, [facility] [id number] [place] [address] 01738- 1226 Mar, [facility] [id number] [place] [address] 27388- 9012 February, Chronic pain G89.29 [facility] [id number] [place] [address] 47531- 4955 February, [facility] [id number] [place] [address] 16887- 1978 Jan, Chronic pain G89.29 [facility] [id number] [place] [address] 55999- 4027 Jan, Type 2 diabetes mellitus without complication E11.9 [facility] [id number] [place] [address] 43835- 6422 Jan, [facility] [id number] [place] [address] 36476- 2447 Jan, [facility] [id number] [place] [address] 50194- 5623 Jan, [facility] [id number] [place] [address] 92628- 5644 Jan, Type 2 diabetes mellitus without complication [...] J01.00 and Encounter for Depo-Provera contraception Z30.42 [facility] [id number] [place] [address] 71623- 1226 Dec, Chronic pain G89.29 [place] [id number] [place] [address] 85045- 8683 Dec, Abnormal ankle brachial index (BERNARDINO) R68.89 [place] [id number] [place] [address] 98021- 7347 Dec, [place] [id number] [place] [address] 90639- 3200 Dec, Routine gynecological examination Z01.419 ; Chronic [...] virus) infection B00.9 and Allergic rhinitis 477.9 [place] [id number] [place] [address] 33593- 6725 28 Nov, 2016 Chronic pain G89.29 [place] [id number] [place] [address] 36621- 3631 02 Nov, 2016 Chronic pain G89.29 ; [...] mucoid otitis media of both ears H65.113 [place] [id number] [place] [address] 69775- 2328 Oct, [place] [id number] [place] [address] 07982- 1921 Oct, Chronic pain G89.29 [place] [id number] [place] [address] 60951- 5403 Oct, Chronic pain G89.29 [place] [id number] [place] [address] 89308- 3753 Sep, Chronic pain G89.29 ; Type 2 diabetes mellitus without complication E11.9 ; Essential hypertension I10 ; Radiculopathy of lumbar region M54.16 ; Spinal stenosis, lumbar region M48.06 ; Gastroesophageal reflux disease without esophagitis K21.9 ; Encounter for surveillance of injectable contraceptive Z30.42 ; Bilateral cold feet R20.9 ; Pain of left foot M79.672 and Pain in right foot M79.671 [place] [address] 10096- 3714 Sep, [place] [address] 53289- 8536 Aug, [place] [address] 05692- 0386 Aug, [place] [address] 51829- 3779 Aug, Chronic pain G89.29 ; Type 2 diabetes mellitus without complication E11.9 ; Essential hypertension I10 ; Rash and nonspecific skin eruption R21 and Upper respiratory infection, acute J06.9 [place] [address] 02350- 2811 08 Aug, 2016 [place] [address] 49094- 5956 Aug, [place] [address] 91200- 6421 Jul, [address] 81084- 6056 Jul, Dysuria R30.0 ; Encounter for Depo-Provera contraception Z30.42 ; Herpes simplex B00.9 ; Nausea & vomiting R11.2 and Asthma J45.[address] 94628- 0705 21 Jun, 2016 Dysuria R30.0 [facility] [id number] [place] [address] 44450- 2240 19 Jun, 2016 Dysuria R30.0 [facility] [id number] [place] [address] 76061- 2069 15 Jun, 2016 [facility] [id number] [place] [address] 18232- 7155 13 Jun, 2016 [facility] [id number] [place] [address] 85673- 3857 May, [facility] [id number] [place] [address] 61053- 0886 May, [facility] [id number] [place] [address] 02389- 4022 May, Chronic pain G89.29 ; Essential hypertension I10 ; Type 2 diabetes mellitus without complication E11.9 ; Edema of both feet R60.0 and Rash and nonspecific skin eruption R21 [facility] [id number] [place] [address] 62147- 7622 Apr, [facility] [id number] [place] [address] 53950- 8424 Mar, Carpal tunnel syndrome, left upper limb G56.02 and Carpal tunnel syndrome, right upper limb G56.01 [facility] [id number] [place] [address] 84879- 4287 Mar, [facility] [id number] [place] [address] 69963- 0146 Mar, Encounter for Depo-Provera contraception Z30.42 [facility] [id number] [place] [address] 35718- 7739 February, [facility] [id number] [place] [address] 62065- 0298 February, [facility] [address] 89703- 9085 February, Chronic pain G89.29 ; Essential hypertension I10 ; Type 2 diabetes mellitus without complication E11.9 ; HSV (herpes simplex virus) infection B00.9 ; Anxiety F41.9 ; Hypersomnia G47.10 ; Tobacco abuse Z72.0 ; Hand pain, left M79.642 ; Hand pain, right M79.641 ; Left foot pain M79.672 and Heart palpitations R00.2 [place] [address] 87380- 7333 Jan, [place] [address] 65156- 2356 Jan, [place] [address] 21410- 6518 Jan, [place] [address] 62373- 0416 Jan, [place] [address] 79031- 2636 Jan, Upper respiratory infection J06.9 and Type 2 diabetes mellitus without complication E11.9 [place] [address] 37393- 0885 Dec, [place] [address] 09820- 9427 Dec, Chronic pain G89.29 ; Essential hypertension I10 ; Type 2 diabetes mellitus without complication E11.9 ; HSV (herpes simplex virus) infection B00.9 ; Anxiety F41.9 ; Upper respiratory infection J06.9 ; Hypersomnia G47.10 and Tobacco abuse Z72.0 [place] [address] 17082- 6027 Dec, Encounter for Depo-Provera contraception Z30.42 [place] [address] 29829- 2910 02 Dec, 2015 [place] [address] 40144- 2026 Dec, Chronic pain G89.29 ; Sinusitis J32.9 ; Snoring R06.83 and Daytime hypersomnia G47.19 [place] [address] 08980- 0161 Nov, HSV (herpes simplex virus) infection B00.9 ; Encounter for Papanicolaou smear for cervical cancer screening Z12.4 ; Screening for STD sexually transmitted disease Z11.3 and Bartholin's gland cyst N75.0 [place] [address] 77625- 4247 Nov, [place] [address] 68134- 0051 Nov, [place] [address] 67421- 5748 Nov, Essential hypertension I10 ; Type 2 diabetes mellitus without complication E11.9 ; HSV (herpes simplex virus) infection B00.9 ; Spinal stenosis, lumbar region M48.06 and Vaginal yeast infection B37.3 [place] [address] 26217- 0268 Nov, [place] [address] 40873- 0166 Nov, [place] [address] 58901- 7497 Oct, [place] [address] 48099- 6444 Oct, HSV (herpes simplex virus) infection B00.9 ; Yeast infection B37.9 ; Change in bowel habit R19.4 ; Nausea & vomiting R11.2 and Gastroesophageal reflux disease without esophagitis K21.9 [place] [id number] [place] [address] 35360- 4736 Oct, [place] [address] 31057- 1752 Oct, Type 2 diabetes mellitus without complication E11.9 ; Essential hypertension I10 and Acute maxillary sinusitis, recurrence not specified J01.[address] 48142- 6599 Oct, [place] [address] 45183- 0740 Oct, [address] 12587- 5465 Oct, Exposure to head lice Z20.7 ; Blood glucose abnormal R73.09 ; Boil of buttock L02.32 and Type 2 diabetes mellitus without complication E11.[address] 78158- 4066 Oct, [address] 56772- 7685 Sep, [address] 80933- 9824 Sep, [address] 95149- 7914 Aug, Encounter for Depo-Provera contraception Z30.[address] 46637- 1774 Aug, Anxiety F41.9 ; Spinal stenosis, lumbar region M48.06 ; Radiculopathy of lumbar region M54.16 ; Asthma J45.909 ; GERD (gastroesophageal reflux disease) K21.9 ; Essential hypertension I10 and Long-term use of high- risk medication Z79.[address] 65151- 6774 Jul, [address] 54018- 0123 Jun, Hemorrhoid 455.[address] 30973- 7648 Jun, [place] [address] 36154- 9773 Jun, Anxiety 300.00 ; Asthma 493.90 ; Hyperhidrosis 705.21 ; Chest discomfort 786.59 and Upper respiratory infection 465.[address] 56887- 6730 May, Encounter for Depo-Provera contraception V25.[address] 65556- 4018 May, [address] 05070- 5804 May, [address] 27776- 9043 May, Spinal stenosis of lumbar region with radiculopathy 724.02 ; Bulging of intervertebral disc between L4 and L5 722.10 ; GERD ( gastroesophageal reflux disease) 530.81 ; Chronic pain 338.29 ; Declining mobility 799.89 and Epigastric pain 789.[address] 02976- 8684 Apr, [address] 99185- 9198 Apr, Nausea 787.02 and Heart burn 787.[address] 14942- 7971 Mar, Lumbago 724.2 ; Vitamin D deficiency 268.9 ; Anxiety 300.00 ; Allergic rhinitis 477.9 and Contraceptive surveillance V25.[address] 80431- 6999 February, 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 ; Chronic pain 338.29 and Vaginal discharge 623.[address] 72079- 3783 February, [address] [id number] [place] [address]- 0815 February, [facility] [place] [facility] [address] [id number] [place] [address]- 2426 14 Jan, 2015 [facility] [place] [facility] [address] [id number] [place] [address]- 3807 Jan, [facility] [place] [facility] [address] [id number] [place] [address]- 5209 Dec, [facility] [place] [facility] [address] [id number] [place] [address]- 5993 Dec, [facility] [place] [facility] [address] [id number] [place] [address]- 9565 Dec, [facility] [place] [facility] [address] [id number] [place] [address]- 0882 Dec, [facility] [place] [facility] [address] [id number] [place] [address]- 0605 18 Dec, 2014 [facility] [place] [facility] [address] [id number] [place] [address]- 2712 18 Dec, 2014 [facility] [place] [facility] [address] [id number] [place] [address]- 6288 Dec, [facility] [place] [facility] [address] [id number] [place] [address]- 5330 Dec, [facility] [place] [facility] [address] [id number] [place] [address]- 7758 Dec, [facility] [place] [facility] [address] [id number] [place] [address]- 0303 Dec, [facility] [place] [facility] [address] [id number] [place] [address]- 4394 Dec, [facility] [place] [facility] [address] [id number] [place] 7368 Dec, [facility] [place] [facility] [address] [id number] [place] [address]- 4730 27 Nov, 2014 [facility] [place] [facility] [address] [id number] [place] [address]- 0363 27 Nov, 2014 [facility] [place] [facility] [address] [facility] [id number] [place] [address]- 0736 24 Nov, 2014 [facility] [place] [facility] [address] [facility] [id number] [place] [address]- 5506 24 Nov, 2014 [facility] [place] [facility] [address] [facility] [id number] [place] [address]- 7852 23 Nov, 2014 [facility] [place] [facility] [address] [facility] [id number] [place] [address] 23 Nov, 2014 [facility] [place] [facility] [address] [facility] [id number] [place] [address] 16 Nov, 2014 [facility] [place] [facility] [address] [facility] [id number] [place] [address] 16 Nov, 2014 [facility] [place] [facility] [address] [facility] [id number] [place] [address] 13 Nov, 2014 [facility] [place] [facility] [address] [facility] [id number] [place] [address] 13 Nov, 2014 [facility] [place] [facility] [address] [facility] [id number] [place] [address] 13 Nov, 2014 [facility] [place] [facility] [address] [facility] [id number] [place] [address] 13 Nov, 2014 [facility] [place] [facility] [address] [facility] [id number] [place] [address] 13 Nov, 2014 [facility] [place] [facility] [address] [facility] [id number] [place] [address] 13 Nov, 2014 [facility] [place] [facility] [address] [facility] [id number] [place] [address] 13 Nov, 2014 [facility] [place] [facility] [address] [facility] [id number] [place] [address] 13 Nov, 2014 [facility] [place] [facility] [address] [id number] [place] [address] Nov, 2014 [facility] [place] [facility] [address] [id number] [place] [address] Nov, 2014 [facility] [place] [facility] [address] [id number] [place] [address] Nov, 2014 [facility] [place] [facility] [address] [id number] [place] [address]- [address] Nov, 2014 [facility] [place] [facility] [address] [id number] [place] [address]- [address] Nov, 2014 [facility] [place] [facility] [address] [id number] [place] [address] Nov, 2014 [facility] [place] [facility] [address] [id number] [place] [address] Nov, [facility] [place] [facility] [address] [id number] [place] [address] Oct, [facility] [place] [facility] [address] [id number] [place] [address] Oct, [facility] [place] [facility] [address] [facility] [id number] [place] [address] Oct, [facility] [place] [facility] [address] [id number] [place] [address] Oct, [facility] [place] [facility] [address] [id number] [place] [address] Oct, [facility] [place] [facility] [address] [address] [id number] [place] [address] Oct, [facility] [place] [facility] [address] [facility] [id number] [place] [address]65 Oct, [facility] [place] [facility] [address] [facility] [id number] [place] [address]751 Oct, [facility] [place] [facility] [address] [id number] [place] [address] 3288 Oct, [facility] [address] [id number] [place] [address] 6146 Oct, [facility] [address] [id number] [place] [address] 7027 Oct, [facility] [address] [id number] [place] [address] 6942 Oct, [facility] [address] [id number] [place] [address]- 4788 Oct, [facility] [address] [id number] [place] [address] Oct, [facility] [address] [id number] [place] [address] 6366 Oct, [facility] [address] [id number] [place] [address] 4665 Oct, [facility] [address] [id number] [place] [address] 4036 Oct, [facility] [address] [id number] [place] [address]- 9654 Oct, [facility] [address] [id number] [place] [address] 1352 Oct, [facility] [address] [id number] [place] [address]- 9136 Oct, [facility] [address] [id number] [place] [address]- 8257 Oct, [facility] [place] [facility] [address] [id number] [place] [address]- 7127 Sep, [facility] [place] [facility] [address] [id number] [place] [id number] [address] Sep, [facility] [address] [id number] [place] [address]- 0893 Sep, [facility] [place] [facility] [address] [id number] [place] [address]- 4348 18 Sep, 2014 [facility] [place] [facility] [address] [id number] [place] [address]- 0850 17 Sep, 2014 [facility] [place] [facility] [address] [id number] [place] [address]- 4442 17 Sep, 2014 [facility] [place] [facility] [address] [id number] [place] [address]- 6890 15 Sep, 2014 [facility] [place] [facility] [address] [id number] [place] [address]- 8654 15 Sep, 2014 [facility] [place] [facility] [address] [id number] [place] [address]- 3512 12 Sep, 2014 [facility] [place] [facility] [address] [id number] [place] [address]- 7701 12 Sep, 2014 [facility] [place] [facility] [address] [id number] [place] [address]- 8499 11 Sep, 2014 [facility] [place] [facility] [address] [id number] [place] [address]- 5058 11 Sep, 2014 [facility] [place] [facility] [address] [id number] [place] [address]- 8730 11 Sep, 2014 [facility] [place] [facility] [address] [id number] [place] [address]- 3386 11 Sep, 2014 [facility] [place] [facility] [address] [id number] [place] [address]- 8852 11 Sep, 2014 [facility] [place] [facility] [address] [id number] [place] [address]- 2353 11 Sep, 2014 [facility] [place] [facility] [address] [id number] [place] [address]- 7759 10 Sep, 2014 [facility] [place] [facility] [address] [id number] [place] [address]- 8119 10 Sep, 2014 [facility] [place] [facility] [address] [id number], [place] [address] Sep, [facility] [place] [facility] [address] [id number] [place] [address]- 3326 Sep, [facility] [place] [facility] [address] [id number] [place] [address]- 6120 Aug, [facility] [place] [facility] [address] [id number] [place] [address]- 9603 Aug, [facility] [place] [facility] [address] [id number] [place] [address]- 0402 Aug, [facility] [place] [facility] [address] [id number] [place] [address]- 9980 Aug, [facility] [place] [facility] [address] [id number] [place] [address]- 5257 Aug, [facility] [place] [facility] [address] [id number] [place] [address]- 0918 Aug, [facility] [place] [facility] [address] [id number] [place] [address]- 2797 Aug, [facility] [place] [facility] [address] [id number] [place] [address]- 4084 Aug, [facility] [place] [facility] [address] [id number] [place] [address]- 7087 Aug, [facility] [place] [facility] [address] [id number], [place] [address]- 1750 Jul, [facility] [place] [facility] [address] [id number], [place] [address]- 1613 Jul, [facility] [place] [facility] [address] [id number] [place] [address]- 1275 Jul, [facility] [place] [facility] [address] [id number] [place] [address]- 2137 Jul, [facility] [place] [facility] [address] [id number] [place] [address]- 9268 16 Jul, 2014 [facility] [place] [facility] [address] [id number] [place] [address]- 5815 16 Jul, 2013 [facility] [place] [facility] [address] [id number] [place] [address]- 5958 Jul, [facility] [place] [facility] [address] [id number] [place] [address]- 4866 13 Jul, 2013 [facility] [place] [facility] [address] [id number] [place] [address]- 2406 10 Jul, 2013 [facility] [place] [facility] [address] [id number] [place] [address]- 7068 10 Jul, 2013 [facility] [place] [facility] [address] [id number] [place] [address]- 3532 10 Jul, 2013 [facility] [place] [facility] [address] [id number] [place] [address]- 6092 10 Jul, 2013 [facility] [place] [facility] [address] [id number] [place] [address]- 6189 07 Jul, 2013 [facility] [place] [facility] [address] [id number] [place] [address]- 3160 07 Jul, 2014 [facility] [place] [facility] [address] [id number] [place] [address]- 1221 30 Jun, 2013 [facility] [place] [facility] [address] [id number] [place] [address]- 8793 30 Sep, 2013 [facility] [place] [facility] [address] [id number] [place] [address]- 2544 25 Sep, 2013 [facility] [place] [facility] [address] [id number] [place] [address]- 2546 25 Sep, 2013 [facility] [place] [facility] [address] [id number] [place] [address] 2546 25 Jun, 2013 [facility] [place] [facility] [address] [id number] [place] [address]- 2546 25 Jun, 2013 [facility] [place] [facility] [address] [id number] [place] [address]- 2549 24 Sep, 2013 [facility] [place] [facility] [address] [id number] [place] [address]- 3182 24 Sep, 2013 [facility] [place] [facility] [address] [id number] [place] [address]- 7204 22 Sep, 2013 [facility] [place] [facility] [address] [id number] [place] [address]- 0241 22 Sep, 2013 [facility] [place] [facility] [address] [id number] [place] [address]- 5730 17 Sep, 2013 [facility] [place] [facility] [address] [id number] [place] [address]- 3614 17 Sep, 2013 [facility] [place] [facility] [address] [id number] [place] [address]- 7553 16 Jun, 2013 [facility] [place] [facility] [address] [id number] [place] [address]- 7657 16 Jun, 2013 [facility] [place] [facility] [address] [id number] [place] [address]- 1179 15 Jun, 2013 [facility] [place] [facility] [address] [id number] [place] [address]- 9751 15 Jun, 2013 [facility] [place] [facility] [address] [id number] [place] [address]- 2758 12 Jun, 2013 [facility] [place] [facility] [address] [id number] [place] [address]- 5911 12 Jun, 2013 [facility] [place] [facility] [address] [id number], [place] [address]- 5511 11 Jun, 2013 [facility] [place] [facility] [address] [id number] [place] [address] 2546 11 Sep, 2013 [facility] [place] [facility] [address] [id number] [place] [address]- 8753 11 Sep, 2013 [facility] [place] [facility] [address] [id number] [place] [address]- 4345 11 Sep, 2013 [facility] [place] [facility] [address] [id number] [place] [address]- 6786 Jun, 2013 [facility] [place] [facility] [address] [id number] [place] [address]- 4681 Jun, [facility] [place] [facility] [address] [id number] [place] [address]- 7834 Jun, [facility] [place] [facility] [address] [id number] [place] [address]- 5582 Jun, [facility] [place] [facility] [address] [id number] [place] [address]- 5401 May, [facility] [place] [facility] [address] [id number] [place] [address]- 7148 May, [facility] [place] [facility] [address] [id number] [place] [address]- 5493 May, [facility] [place] [facility] [address] [id number] [place] [address]- 5942 May, [facility] [place] [facility] [address] [id number] [place] [address]- 8111 May, [facility] [place] [facility] [address] [id number] [place] [address]- 0046 May, [facility] [place] [facility] [address] [id number] [place] [address]- 9210 May, [facility] [place] [facility] [address] [id number] [place] [address]- 8501 May, [facility] [place] [facility] [address] [id number] [place] [address]- 3156 May, [facility] [place] [facility] [address] [id number] [place] [address]- 8401 May, [facility] [place] [facility] [address] [id number] [place] [address]- 9993 May, [facility] [place] [facility] [address] [id number] [place] [address]- 1796 May, [facility] [place] [facility] [address] [id number] [place] [address]- 9187 May, [facility] [place] [facility] [address] [id number] [place] [address]- 7359 Apr, [facility] [place] [facility] [address] [id number] [place] [address]- 1702 Apr, [facility] [place] [facility] [address] [id number] [place] [address]- 2345 Apr, [facility] [place] [facility] [address] [id number] [place] [address]- 8583 Apr, [facility] [place] [facility] [address] [id number] [place] [address]- 8503 Apr, [facility] [place] [facility] [address] [id number] [place] [address]- 6660 Mar, [facility] [place] [facility] [address] [id number] [place] [address]- 7718 Mar, [facility] [place] [facility] [address] [id number] [place] [address]- 1426 Mar, [facility] [place] [facility] [address] [id number] [place] [address]- 7673 February, [facility] [place] [facility] [address] [id number] [place] [address]- 2248 February, [facility] [place] [facility] [address] [id number] [place] [address]- 6475 February, [facility] [place] [facility] [address] [id number] [place] [address]- 9402 February, [facility] [place] [facility] [address] [id number] [place] [id number] [address]798 February, [facility] [place] [facility] [address] [id number] [place] [address]- 6424 February, [facility] [place] [facility] [address] [id number] [place] [address]- 9403 February, [facility] [place] [facility] [address] [id number] [place] [address]- 6312 February, [facility] [place] [facility] [address] [id number] [place] February, [facility] [place] [facility] [address] [id number] [place] [address]- 7644 Jan, [facility] [place] [facility] [address] [id number] [place] [address]- 9914 Jan, [facility] [place] [facility] [address] [id number] [place] [address]- 3091 Jan, [facility] [place] [facility] [address] [id number] [place] [address]- 7913 Jan, [facility] [place] [facility] [address] [id number] [place] [address]- 1585 Jan, [facility] [place] [facility] [address] [id number] [place] [address]- 8662 Dec, [facility] [place] [facility] [address] [id number] [place] [address]- 0682 Dec, [facility] [place] [facility] [address] [id number] [place] [address]- 5028 Dec, [facility] [place] [facility] [address] [id number] [place] [address]- 7624 Dec, [facility] [place] [facility] [address] [id number] [place] [address]- 0606 Dec, [facility] [place] [facility] [address] [id number] [place] [address]- 1798 Nov, [facility] [place] [facility] [address] [id number] [place] [address]- 1148 Nov, [facility] [place] [facility] [address] [id number] [place] [address]- 2051 Nov, [facility] [place] [facility] [address] [id number] [place] [address]- 4502 Nov, [facility] [address] [id number] [place] [address]- 8298 Oct, [facility] [place] [facility] [address] [id number] [place] [address]- 4017 Oct, [facility] [place] [facility] [address] [id number] [place] [address]- 1079 Oct, [facility] [place] [facility] [address] [id number] [place] [address]- 8667 Oct, [facility] [place] [facility] [address] [id number] [place] [address]- 0416 Oct, [facility] [place] [facility] [address] [id number] [place] [address]- 1210 Oct, [facility] [place] [facility] [address] [id number] [place] [address]- 0151 Oct, [facility] [place] [facility] [address] [id number] [place] [address]- 5232 Oct, [facility] [place] [facility] [address] [id number] [place] [address]- 9013 Oct, [facility] [place] [facility] [address] [id number] [place] [address]- 8389 Oct, [facility] [place] [facility] [address] [id number] [place] [address]- 7906 Aug, [facility] [place] [facility] [address] [id number] [place] [address]- 6747 Aug, [facility] [place] [facility] [address] [id number] [place] [address]- 1722 Jul, [facility] [place] [facility] [address] [id number] [place] [address]- 3106 Jul, [facility] [place] [facility] [address] [id number] [place] [address]- 1721 Jul, [facility] [address] [id number] [place] [address]- 3268 09 Jul, 2013 [facility] [place] [facility] [address] [id number] [place] [address]- 7208 Jul, [facility] [place] [facility] [address] [id number] [place] [address]- 7186 Jul, [facility] [place] [facility] [address] [id number] [place] [address]- 1430 Apr, [facility] [place] [facility] [address] [id number] [place] [address]- 8237 Dec, [facility] [place] [facility] [address] [id number] [place] [address]- 8969 Nov, [facility] [place] [facility] [address] [facility] [id number] [place] [address]- 8830 Nov, [facility] [place] [facility] [address] [id number] [place] [address]- 9714 Nov, [facility] [place] [facility] [address] [id number] [place] [address]- 1833 Oct, [facility] [place] [facility] [address] [facility] [id number] [place] [address]- 9597 Sep, [facility] [place] [facility] [address] [id number], [place] [address]- 8554 Sep, [facility] [place] [facility] [address] [id number], [place] [address]- 9830 Sep, [facility] [place] [facility] [address] [id number] [place] [address]- 7368 Sep, [facility] [place] [facility] [address] [id number] [place] [address]- 3152 Aug, [facility] [place] [facility] [address] [facility] [id number] [place] [address]- 4514 Aug, [facility] [place] [facility] [address] [id number] [place] [address]- 5507 12 Jul, 2012 [facility] [place] [facility] [address] [id number] [place] [address]- 1160 12 Jul, 2012 [facility] [place] [facility] [address] [id number] [place] [address]- 5026 28 Jun, 2012 [facility] [place] [facility] [address] [id number] [place] [address]- 6396 26 Jun, 2012 [facility] [place] [facility] [address] [id number] [place] [address] 2548 24 Jun, 2012 [facility] [place] [facility] [address] [id number] [place] [address]- 1916 24 Jun, 2012 [facility] [place] [facility] [address] [id number] [place] [address]- 9159 12 Jun, 2012 [facility] [place] [facility] [address] [id number] [place] [address]- 5186 31 Apr, 2012 [facility] [place] [facility] [address] [id number] [place] [address]- 7514 30 Apr, 2012 [facility] [place] [facility] [address] [id number] [place] [address]- 4111 Apr, [facility] [place] [facility] [address] [id number] [place] [address]- 7087 Mar, [facility] [place] [facility] [address] [id number] [place] [address]- 0467 Mar, [facility] [place] [facility] [address] [id number] [place] [address]- 0139 Mar, [facility] [place] [facility] [address] [id number] [place] [address]- 2782 February, [facility] [place] [facility] [address] [id number] [place] [address]- 8585 Jan, [facility] [place] [facility] [address] [id number] [place] [address]- 5334 Dec, [facility] [place] [facility] [address] [id number] [place] [address]- 9292 Dec, [facility] [place] [facility] [address] [id number] [place] [address]- 5146 Dec, [facility] [place] [facility] [address] [id number] [place] [address]- 5034 Dec, [facility] [place] [facility] [address] [id number] [place] [address]- 5054 Dec, [facility] [place] [facility] [address] [id number] [place] [address]- 6607 14 Nov, 2011 [facility] [place] [facility] [address] [id number] [place] [address]- 2139 Nov, [facility] [place] [facility] [address] [id number] [place] [address]- 2930 Oct, [facility] [place] [facility] [address] [id number] [place] [address]- 7634 Oct, [facility] [place] [facility] [address] [id number] [place] [address]- 1694 Oct, [facility] [address] [id number] [place] [address] Sep, [facility] [place] [facility] [address] [id number] [address] Aug, [facility] [place] [facility] [address] [id number], [place] [address] Aug, [facility] [place] [facility] [address] [id number] [place] [address] Jul, [facility] [place] [facility] [address] [id number] [place] [address] 24 Jul, 2011 [facility] [place] [facility] [address] [id number], [place] [address] Jul, [facility] [place] [facility] [address] [id number][place] [address] 13 Jan, 2011 [facility] [address] [id number] [place] [address] 29 Sep, 2010 [facility] [place] [facility] [address] [id number] [place] [address] 27 Sep, 2010 [facility] [place] [facility] [address] [facility] [id number] [place] [address] 20 Sep, 2010 [facility] [place] [facility] [address] [id number] [place] [address] 20 Sep, 2010 [facility] [place] [facility] [address] [facility] [id number] [place] [address] 06 Sep, 2010 [facility] [place] [facility] [address] [facility] [id number] [place] [address] 16 Aug, 2010 [facility] [place] [facility] [address] [facility] [id number] [place] [address] 16 Aug, 2010 [facility] [place] [facility] [address] [facility] [id number] [place] [address] 08 Aug, 2010 [facility] [place] [facility] [address] [facility] [id number] [place] [address] Jul, [facility] [place] [facility] [address] [facility] [id number] [place] [address] Jul, [facility] [place] [facility] [address] [facility] [id number], [place] [address] 12 Jul, 2010 [facility] [place] [facility] [address] [facility] [id number], [place] [address] 11 May, 2010 [facility] [place] [facility] [address] [facility] [id number] [place] [address] 13 Apr, 2010 [facility] [place] [facility] [address] [facility] [id number] [place] [address] 18 Dec, 2009 [facility] [place] [facility] [address] [facility] [id number] [place] [address] 17 Sep, 2009 [facility] [place] [facility] [address] [facility] [id number] [place] [address] Sep, [facility] [address] [facility] [id number], [place] [address] Aug, [facility] [address] [id number], [place] [address] Aug, [facility] [address] [facility] [id number] [address] [address] Jul, [facility] [address] [facility] [id number], [place] [address] Mar, IMMUNIZATIONS No Known Immunizations SOCIAL HISTORY [...]
--- OUTSIDE RECORDS SUMMARY | 2018-10-08 20:34 | XMS REPORT ---
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 816772857 Problem Edema of both feet R60.0 Active 940563739 Problem Tobacco abuse Z72.0 Active 24089218 Problem Chronic migraine G43.709 Active 48609186 Problem Mixed hyperlipidemia E78.2 Active 525690268 Problem Spinal stenosis, lumbar region M48.06 Active 57781273 Problem Anxiety F41.9 Active 81005887 Problem Radiculopathy of lumbar region M54.16 Active 967289016 Problem Bulging lumbar disc M51.26 Active 514019471 Problem Asthma J45.909 Active 122765377 Problem Essential hypertension I10 Active 49748700 ALLERGIES No Information ENCOUNTERS Encounter Location Date Diagnosis [facility] [place] [id number] [address] 14 Dec, 2017 [facility] [place] [id number] [place] [address] 71189- 3504 Dec, Gastroesophageal reflux disease without esophagitis K21.9 and Anxiety F41.9 [facility] [place] [id number] [address] Dec, Essential hypertension I10 ; Mixed hyperlipidemia E78.2 ; Type 2 diabetes mellitus with diabetic neuropathy, unspecified E11.40 ; 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 ; Chronic pain G89.29 ; HSV (herpes simplex virus) infection B00.9 ; Anxiety F41.9 and Gastroesophageal reflux disease without esophagitis K21.9 [id number] [place] [address] 70134- 8373 Dec, Chronic pain G89.29 and Chronic migraine G43.[address] 26935- 0384 Nov, [address] 16961- 6586 Nov, Essential hypertension I10 and Chronic pain G89.[address] 57285- 3924 Nov, Chronic pain G89.29 ; Essential hypertension I10 and Type 2 diabetes mellitus without complication E11.[address] 03725- 2079 Oct, Chronic pain G89.[address] 11487- 8157 Oct, [address] [id number] [place] [address] 73249- 5366 Sep, Type 2 diabetes mellitus without complication E11.9 ; Essential hypertension I10 ; terminal press operator (current) use of insulin Z79.4 ; Chronic migraine G43.709 ; Chronic pain G89.29 and Acute non-recurrent maxillary sinusitis J01.00 [place] [id number] [place] [address] 67709- 1527 Sep, Encounter for Depo-Provera contraception Z30.[address] 61708- 1414 Sep, Chronic pain G89.29 and Radiculopathy of lumbar region M54.[address] 69822- 7640 Sep, [facility] [place] [address] [address] 0765 Sep, [facility] [place] [id number] [place] [address] 89348- 6910 Aug, Type 2 diabetes mellitus without complication E11.9 [facility] [place] [address] [address] 9127 Aug, [facility] [place] [id number] [place] [address] 03444- 3402 Aug, Radiculopathy of lumbar region M54.16 and Chronic pain G89.29 [facility] [place] [id number] [place] [address] 10174- 6769 Aug, Type 2 diabetes mellitus without complication E11.9 [facility] [place] [id number] [place] [address] 06711- 0307 Aug, Type 2 diabetes mellitus without complication E11.9 [facility] [place] [id number] [place] [address] 55159- 0944 Jul, Type 2 diabetes mellitus without complication E11.9 [facility] [place] [id number] [place] [address] 88324- 4010 Jul, [facility] [place] [address] [address] 3870 Jul, Chronic pain G89.29 [facility] [place] [address] [address]- 7896 Jul, [facility] [place] [address] [address]- 4313 Jul, [facility] [place] [address] [address]- 4472 Jul, Type 2 diabetes mellitus without complication E11.9 [facility] [place] [address] [address]- 5359 Jul, [facility] [place] [id number] [place] [address] 67783- 7482 12 Jul, 2017 Type 2 diabetes mellitus without complication E11.9 [facility] [place] [address] 93280- 0211 11 Jul, 2017 [facility] [place] [address] 59131- 9192 Jul, [place] [address] 53825- 5183 Jul, [facility] [place] [address] 83097- 8008 27 Jun, 2017 Type 2 diabetes mellitus without complication E11.9 [place] [address] 34549- 7713 26 Jun, 2017 Chronic migraine G43.709 ; Type 2 diabetes mellitus without complication E11.9 ; Calculus of right kidney N20.0 ; Yeast dermatitis B37.2 and HSV (herpes simplex virus) infection B00.9 [place] [id number] [place] [address] 54956- 1719 Jun, Type 2 diabetes mellitus without complication E11.9 [place] [id number] [place] [address] 93149- 7728 Jun, [place] [id number] [place] [address] 55876- 2907 Jun, Radiculopathy of lumbar region M54.16 and Chronic pain G89.29 [place] [id number] [place] [address] 60245- 6330 Jun, Encounter for Depo-Provera contraception Z30.42 [place] [address] 70103- 8167 Jun, Type 2 diabetes mellitus without complication E11.9 [facility] [place] [id number] [place] [address] 21169- 9025 10 Jun, 2017 [facility] [address] [place] [address] May, Acute nasopharyngitis (common cold) J00 [place] [address] 63004- 1713 May, Chronic pain G89.29 [place] [address] 72212- 1288 May, Headache following lumbar puncture G97.1 [place] [address] 64635- 2602 May, Radiculopathy of lumbar region M54.16 [place] [address] 07064- 6746 Apr, [place] [address] 69132- 4855 Apr, Type 2 diabetes mellitus without complication E11.9 ; Chronic pain G89.29 ; Essential hypertension I10 ; Radiculopathy of lumbar region M54.16 ; Spinal stenosis, lumbar region M48.06 ; Gastroesophageal reflux disease without esophagitis K21.9 ; HSV (herpes simplex virus) infection B00.9 ; Mixed hyperlipidemia E78.2 ; Anxiety F41.9 and Asthma J45.909 [place] [id number] [place] [address] 04095- 8704 Apr, Encounter for Depo-Provera contraception Z30.42 [place] [id number] [place] [address] 11478- 9296 Apr, Chronic pain G89.29 and Anxiety F41.9 [place] [id number] [place] [address] 96670- 3262 Mar, [place] [address] 66240- 8846 Mar, [place] [address] 43398- 2430 Mar, Mixed hyperlipidemia E78.2 [place] [id number] [address]- 3357 Mar, Type 2 diabetes mellitus without complication E11.9 ; Chronic pain G89.29 ; Essential hypertension I10 ; Radiculopathy of lumbar region M54.16 ; Spinal stenosis, lumbar region M48.06 ; Gastroesophageal reflux disease without esophagitis K21.9 ; HSV (herpes simplex virus) infection B00.9 ; Mixed hyperlipidemia E78.2 and Anxiety F41.9 [facility] [place] [id number] [place] [address] 58674- 1708 Mar, [facility] [place] [id number] [place] [address] 43983- 2095 Mar, [facility] [place] [id number] [place] [address] 91298- 8133 Mar, [facility] [place] [id number] [place] [address] 65624- 1785 February, Chronic pain G89.29 [facility] [place] [id number] [place] [address] 44742- 6909 February, [facility] [place] [id number] [place] [address] 69728- 5832 Jan, Chronic pain G89.29 [facility] [place] [id number] [place] [address] 55375- 1509 Jan, Type 2 diabetes mellitus without complication E11.9 [facility] [place] [id number] [place] [address] 33449- 1913 Jan, [facility] [place] [id number] [place] [address] 07330- 7413 Jan, [facility] [place] [id number] [place] [address] 12038- 4113 Jan, [facility] [place] [id number] [place] [address] 63130- 6288 Jan, Type 2 diabetes mellitus without complication [...] J01.00 and Encounter for Depo-Provera contraception Z30.42 [place] [id number] [place] [address] 64260- 3395 Dec, Chronic pain G89.29 [place] [address] 56131- 6055 Dec, Abnormal ankle brachial index (BERNARDINO) R68.89 [place] [id number] [place] [address] 44472- 1376 Dec, [place] [address] 03134- 2506 Dec, Routine gynecological examination Z01.419 ; Chronic [...] B00.9 and Allergic rhinitis 477.9 [place] [id number] [place] [address] 27790- 2787 Nov, Chronic pain G89.29 [place] [id number] [place] [address] 08493- 2895 02 Nov, 2016 Chronic pain G89.29 ; [...] media of both ears H65.113 [place] [id number] [place] [address] 87849- 3215 Oct, [place] [id number] [place] [address] 07671- 2522 Oct, Chronic pain G89.29 [place] [address] 47245- 9801 Oct, Chronic pain G89.29 [place] [id number] [place] [address] 08585- 8534 Sep, Chronic pain G89.29 ; Type 2 diabetes mellitus without complication E11.9 ; Essential hypertension I10 ; Radiculopathy of lumbar region M54.16 ; Spinal stenosis, lumbar region M48.06 ; Gastroesophageal reflux disease without esophagitis K21.9 ; Encounter for surveillance of injectable contraceptive Z30.42 ; Bilateral cold feet R20.9 ; Pain of left foot M79.672 and Pain in right foot M79.671 [place] [id number] [place] [address] 75981- 3098 Sep, [place] [id number] [place] [address] 74797- 2165 Aug, [place] [id number] [place] [address] 92081- 5187 Aug, [place] [address] 98557- 3937 Aug, Chronic pain G89.29 ; Type 2 diabetes mellitus without complication E11.9 ; Essential hypertension I10 ; Rash and nonspecific skin eruption R21 and Upper respiratory infection, acute J06.9 [place] [id number] [place] [address] 81343- 2004 Aug, [place] [id number] [place] [address] 66785- 2369 Aug, [place] [id number] [place] [address] 06165- 1406 Jul, [facility] [place] [address] 65027- 1354 Jul, Dysuria R30.0 ; Encounter for Depo-Provera contraception Z30.42 ; Herpes simplex B00.9 ; Nausea & vomiting R11.2 and Asthma J45.909 [facility] [place] [address] 82108- 3199 Jun, Dysuria R30.0 [facility] [place] [address] 65477- 6636 Jun, Dysuria R30.0 [facility] [place] [id number] [place] [address] 26863- 1339 15 Jun, 2016 [facility] [place] [address] 00311- 5784 Jun, [facility] [place] [id number] [place] [address] 34637- 0217 May, [facility] [place] [address] 47935- 7073 May, [facility] [place] [id number] [place] [address] 90142- 5281 May, Chronic pain G89.29 ; Essential hypertension I10 ; Type 2 diabetes mellitus without complication E11.9 ; Edema of both feet R60.0 and Rash and nonspecific skin eruption R21 [facility] [place] [id number] [place] [address] 53343- 4113 Apr, [facility] [place] [address] 24515- 9110 Mar, Carpal tunnel syndrome, left upper limb G56.02 and Carpal tunnel syndrome, right upper limb G56.01 [facility] [place] [id number] [place] [address] 42891- 9640 Mar, [place] [id number] [place] [address] 06280- 6012 Mar, Encounter for Depo-Provera contraception Z30.42 [place] [id number] [place] [address] 02449- 3583 February, [place] [id number] [place] [address] 44031- 4909 February, [place] [id number] [place] [address] 98577- 7395 February, Chronic pain G89.29 ; Essential hypertension I10 ; Type 2 diabetes mellitus without complication E11.9 ; HSV (herpes simplex virus) infection B00.9 ; Anxiety F41.9 ; Hypersomnia G47.10 ; Tobacco abuse Z72.0 ; Hand pain, left M79.642 ; Hand pain, right M79.641 ; Left foot pain M79.672 and Heart palpitations R00.2 [place] [id number] [place] [address] 37425- 9264 Jan, [place] [id number] [place] [address] 48675- 8734 Jan, [place] [id number] [place] [address] 49575- 7541 Jan, [place] [id number] [place] [address] 27762- 3310 Jan, [place] [id number] [place] [address] 98576- 5919 14 Jan, 2016 Upper respiratory infection J06.9 and Type 2 diabetes mellitus without complication E11.9 [place] [id number] [place] [address] 25087- 8180 Dec, [place] [id number] [place] [address] 46783- 6251 Dec, Chronic pain G89.29 ; Essential hypertension I10 ; Type 2 diabetes mellitus without complication E11.9 ; HSV (herpes simplex virus) infection B00.9 ; Anxiety F41.9 ; Upper respiratory infection J06.9 ; Hypersomnia G47.10 and Tobacco abuse Z72.0 [place] [address] 64605- 1642 17 Dec, 2015 Encounter for Depo-Provera contraception Z30.42 [place] [address] 93421- 1747 Dec, [place] [address] 79723- 3160 Dec, Chronic pain G89.29 ; Sinusitis J32.9 ; Snoring R06.83 and Daytime hypersomnia G47.19 [place] [address] 31660- 9874 Nov, HSV (herpes simplex virus) infection B00.9 ; Encounter for Papanicolaou smear for cervical cancer screening Z12.4 ; Screening for STD ( sexually transmitted disease) Z11.3 and Bartholin's gland cyst N75.0 [place] [id number] [place] [address] 53764- 4528 Nov, [place] [address] 34550- 5282 Nov, [place] [id number] [place] [address] 47832- 9688 Nov, Essential hypertension I10 ; Type 2 diabetes mellitus without complication E11.9 ; HSV (herpes simplex virus) infection B00.9 ; Spinal stenosis, lumbar region M48.06 and Vaginal yeast infection B37.3 [place] [id number] [place] [address] 76279- 3779 Nov, [place] [address] 01627- 4798 Nov, [place] [id number] [place] [address] 91471- 9158 Oct, [place] [id number] [place] [address] 93964- 9632 26 Oct, 2015 HSV (herpes simplex virus) infection B00.9 ; Yeast infection B37.9 ; Change in bowel habit R19.4 ; Nausea & vomiting R11.2 and Gastroesophageal reflux disease without esophagitis K21.9 [place] [address] 63618- 9916 Oct, [address] 75255- 9502 Oct, Type 2 diabetes mellitus without complication E11.9 ; Essential hypertension I10 and Acute maxillary sinusitis, recurrence not specified J01.[address] 55852- 6002 Oct, [address] 64032- 9738 Oct, [address] 18462- 6201 Oct, Exposure to head lice Z20.7 ; Blood glucose abnormal R73.09 ; Boil of buttock L02.32 and Type 2 diabetes mellitus without complication E11.9 [place] [address] 52644- 9481 Oct, [address] 79286- 9764 Sep, [place] [address] 50657- 3385 Sep, [address] 73200- 7621 Aug, Encounter for Depo-Provera contraception Z30.[address] 59433- 9989 Aug, Anxiety F41.9 ; Spinal stenosis, lumbar region M48.06 ; Radiculopathy of lumbar region M54.16 ; Asthma J45.909 ; GERD (gastroesophageal reflux disease) K21.9 ; Essential hypertension I10 and Long-term use of high- risk medication Z79.899 [place] [address] 27859- 3464 Jul, [place] [address] 95848- 3611 Jun, Hemorrhoid 455.[address] 41498- 0369 Jun, [place] [address] 55367- 8810 Jun, Anxiety 300.00 ; Asthma 493.90 ; Hyperhidrosis 705.21 ; Chest discomfort 786.59 and Upper respiratory infection 465.[address] 08290- 2645 May, Encounter for Depo-Provera contraception V25.[address] 04817- 9515 May, [address] 00221- 7922 May, [address] 73502- 3558 May, Spinal stenosis of lumbar region with radiculopathy 724.02 ; Bulging of intervertebral disc between L4 and L5 722.10 ; GERD ( gastroesophageal reflux disease) 530.81 ; Chronic pain 338.29 ; Declining mobility 799.89 and Epigastric pain 789.06 [place] [id number] [place] [address] 31944- 2330 Apr, [address] 17120- 4534 Apr, Nausea 787.02 and Heart burn 787.[address] 37375- 3666 Mar, Lumbago 724.2 ; Vitamin D deficiency 268.9 ; Anxiety 300.00 ; Allergic rhinitis 477.9 and Contraceptive surveillance V25.40 [facility] [id number] [place] [address] 82354- 9802 February, 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 ; Chronic pain 338.29 and Vaginal discharge 623.5 [facility] [id number] [place] [address] 44897- 0386 February, [facility] [place] [id number] [place] [address] 76314- 1766 February, [facility] [place] [id number] [place] [address] [id number]- 7539 Jan, [facility] [place] [id number] [place] [address] 494207- 0649 Jan, [facility] [place] [id number] [place] [address] [id number]- 0008 Dec, [facility] [id number] [place] [address] 71205- 5298 Dec, [facility] [id number] [place] [address] [id number]- 6892 Dec, [facility] [address] [address]- 5289 Dec, [facility] [address] 1332 Dec, [facility] [address]- 7015 Dec, [facility] [id number] [place] [address] 244060- 5044 Dec, [facility] [address] [address]- 8148 Dec, [facility] [id number] [place] [address] 70857- 5806 Dec, [facility] [place] [facility] [address] [id number] [place] [address]- 2138 Dec, [facility] [place] [facility] [address] [id number] [place] [address]- 7910 Dec, [facility] [place] [facility] [address] [facility] [id number] [place] [address]- 0145 Dec, [facility] [place] [facility] [address] [facility] [id number] [place] [address]- 1004 Nov, 2014 [facility] [place] [facility] [address] [id number] [place] [address] Nov, 2014 [facility] [place] [facility] [address] [facility] [id number] [place] [address] 24 Nov, 2014 [facility] [place] [facility] [address] [facility] [id number] [place] [address] 24 Nov, 2014 [facility] [place] [facility] [address] [facility] [id number] [place] [address] 23 Nov, 2014 [facility] [place] [facility] [address] [facility] [id number] [place] [address] 23 Nov, 2014 [facility] [place] [facility] [address] [facility] [id number] [place] [address] 16 Nov, 2014 [facility] [place] [facility] [address] [facility] [id number] [place] [address] 16 Nov, 2014 [facility] [place] [facility] [address] [facility] [id number] [place] [address] 13 Nov, 2014 [facility] [place] [facility] [address] [facility] [id number] [place] [address] 13 Nov, 2014 [facility] [place] [facility] [address] [facility] [id number] [place] [address] 13 Nov, 2014 [facility] [place] [facility] [address] [facility] [id number] [place] [address] 13 Nov, 2014 [facility] [place] [facility] [address] [id number] [place] [address] Nov, 2014 [facility] [place] [facility] [address] [id number] [place] [address] Nov, 2014 [facility] [place] [facility] [address] [id number] [place] [address] Nov, 2014 [facility] [place] [facility] [address] [id number] [place] [address] Nov, 2014 [facility] [place] [facility] [address] [id number] [place] [address] Nov, 2014 [facility] [place] [facility] [address] [id number] [place] [address] Nov, 2014 [facility] [place] [facility] [address] [id number] [place] [address] Nov, 2014 [facility] [place] [facility] [address] [id number] [place] [address] Nov, 2014 [facility] [place] [facility] [address] [id number] [place] [address] Nov, 2014 [facility] [place] [facility] [address] [id number] [place] [address] Nov, [facility] [place] [facility] [address] [id number] [place] [address] Nov, [facility] [place] [facility] [address] [id number] [place] [address] 8680 Oct, [facility] [place] [facility] [address] [id number] [place] [address] 8836 Oct, [facility] [place] [facility] [address] [id number] [place] [address] 4072 Oct, [facility] [place] [facility] [address] [id number] [place] [address] 4512 Oct, [facility] [place] [facility] [address] [id number] [place] [address] 6097 Oct, [facility] [address] [id number] [place] [address] 1415 Oct, [facility] [place] [facility] [address] [id number] [place] [address] 8249 Oct, [facility] [address] [id number] [place] [address]- 6579 Oct, [facility] [place] [facility] [address] [id number] [place] [address] 3035 Oct, [facility] [address] [id number] [place] [address]- 2576 Oct, [facility] [place] [facility] [address] [id number] [place] [address] 9837 Oct, [facility] [address] [id number] [place] [address] Oct, [facility] [address] [id number] [place] [address] 6559 Oct, [facility] [place] [facility] [address] [id number] [place] [address]- 7183 Oct, [facility] [address] [id number] [place] [address]- 4134 Oct, [facility] [place] [facility] [address] [id number] [place] [address]- 8811 Oct, [facility] [place] [facility] [address] [id number] [place] [address]- 8072 Oct, [facility] [place] [facility] [address] [id number] [place] [address]- 5953 Oct, [facility] [place] [facility] [address] [id number] [place] [address]- 2149 Oct, [facility] [place] [facility] [address] [id number] [place] [address] Oct, [facility] [place] [facility] [address] [id number] [place] [address]- 7664 Oct, [facility] [place] [facility] [address] [id number] [place] [address]- 7585 Sep, [facility] [place] [facility] [address] [id number] [place] [address]- 4653 29 Sep, 2014 [facility] [place] [facility] [address] [id number] [place] [address]- 7954 18 Sep, 2014 [facility] [place] [facility] [address] [id number] [place] [address]- 0993 18 Sep, 2014 [facility] [place] [facility] [address] [id number] [place] [address]- 5523 Sep, [facility] [place] [facility] [address] [id number] [place] [address]- 0854 17 Sep, 2014 [facility] [place] [facility] [address] [id number] [place] [address]- 9874 15 Sep, 2014 [facility] [place] [facility] [address] [id number] [place] [address]- 8303 15 Sep, 2014 [facility] [place] [facility] [address] [id number] [place] [address]- 7482 Sep, [facility] [place] [facility] [address] [id number] [place] [address]- 7700 12 Sep, 2014 [facility] [place] [facility] [address] [id number] [place] [address]- 2438 11 Sep, 2014 [facility] [place] [facility] [address] [id number] [place] [address]- 5742 Sep, [facility] [place] [facility] [address] [id number] [place] [address]- 2260 Sep, [facility] [place] [facility] [address] [id number] [place] [address]- 3776 11 Sep, 2014 [facility] [place] [facility] [address] [id number] [place] [address]- 0699 Sep, [facility] [place] [facility] [address] [id number] [place] [address]- 0733 Sep, [facility] [place] [facility] [address] [id number] [place] [address]- 0118 Sep, [facility] [place] [facility] [address] [facility] [id number] [place] [address]- 5465 Sep, [facility] [place] [facility] [address] [id number] [place] [address]- 5380 Sep, [facility] [place] [facility] [address] [id number] [place] [address]- 3404 Sep, [facility] [place] [facility] [address] [id number] [place] [address]- 1359 Aug, [facility] [place] [facility] [address] [id number] [place] [address]- 5530 Aug, [facility] [place] [facility] [address] [id number] [place] [address]- 9823 Aug, [facility] [place] [facility] [address] [id number] [place] [address]- 4484 Aug, [facility] [place] [facility] [address] [facility] [id number] [place] [address]- 0465 Aug, [facility] [place] [facility] [address] [id number] [place] [address]- 3229 Aug, [facility] [place] [facility] [address] [id number] [place] [address]- 4523 Aug, [facility] [place] [facility] [address] [id number] [place] [address]- [address] Aug, [facility] [place] [facility] [address] [facility] [id number] [place] [address]- 1005 Aug, [facility] [place] [facility] [address] [facility] [id number] [place] [address]- 6476 Jul, [facility] [place] [facility] [address] [id number] [place] [address]- 5707 29 Jul, 2013 [facility] [place] [facility] [address] [id number] [place] [address]- 3267 Jul, 2013 [facility] [place] [facility] [address] [id number] [place] [address]- 0152 Jul, 2013 [facility] [place] [facility] [address] [id number] [place] [address] 16 Jul, 2013 [facility] [place] [facility] [address] [id number] [place] [address]- 2267 16 Jul, 2013 [facility] [place] [facility] [address] [id number] [place] [address]- 8627 Jul, 2013 [facility] [place] [facility] [address] [id number] [place] [address]- 5167 Jul, 2013 [facility] [place] [facility] [address] [id number] [place] [address]- 1499 10 Jul, 2013 [facility] [place] [facility] [address] [id number] [place] [address]- 7735 10 Jul, 2013 [facility] [place] [facility] [address] [id number] [place] [address]- 3008 10 Jul, 2013 [facility] [place] [facility] [address] [id number] [place] [address]- 6905 10 Jul, 2013 [facility] [place] [facility] [address] [id number] [place] [address]- 8461 07 Jul, 2013 [facility] [place] [facility] [address] [id number] [place] [address]- 4477 07 Jul, 2013 [facility] [place] [facility] [address] [id number] [place] [address]- 4143 30 Jun, 2013 [facility] [place] [facility] [address] [id number] [place] [address] 30 Sep, 2013 [facility] [place] [facility] [address] [id number] [place] [address]- 3590 25 Sep, 2013 [facility] [place] [facility] [address] [id number] [place] [address]- 9069 25 Sep, 2013 [facility] [place] [facility] [address] [id number] [place] [address]- 4356 25 Sep, 2013 [facility] [place] [facility] [address] [id number] [place] [address]- 6428 25 Sep, 2013 [facility] [place] [facility] [address] [id number] [place] [address]- 6425 24 Sep, 2013 [facility] [place] [facility] [address] [id number] [place] [address]- 8890 24 Sep, 2013 [facility] [place] [facility] [address] [id number] [place] [address]- 7835 22 Jun, 2013 [facility] [place] [facility] [address] [id number] [place] [address]- 0175 22 Jun, 2013 [facility] [place] [facility] [address] [id number] [place] [address]- 0589 17 Sep, 2013 [facility] [place] [facility] [address] [id number] [place] [address]- 3006 17 Sep, 2013 [facility] [place] [facility] [address] [id number] [place] [address]- 8600 16 Sep, 2013 [facility] [place] [facility] [address] [id number] [place] [address]- 0991 16 Sep, 2013 [facility] [place] [facility] [address] [id number] [place] [address]- 2544 15 Sep, 2013 [facility] [place] [facility] [address] [id number] [place] [address]- 2548 15 Sep, 2013 [facility] [place] [facility] [address] [id number] [place] [address]- 7705 12 Sep, 2013 [facility] [place] [facility] [address] [id number] [place] [address]- 4323 12 Sep, 2013 [facility] [place] [facility] [address] [id number] [place] [address]- 5540 11 Jun, 2013 [facility] [place] [facility] [address] [id number] [place] [address]- 7566 11 Jun, 2013 [facility] [place] [facility] [address] [id number] [place] [address] 2546 Jun, 2013 [facility] [place] [facility] [address] [id number] [place] [address]- 0617 Jun, 2013 [facility] [place] [facility] [address] [id number] [place] [address] 2540 Jun, 2013 [facility] [place] [facility] [address] [id number] [place] [address]- 8608 Jun, 2013 [facility] [place] [facility] [address] [id number] [place] [address]- 2975 Jun, 2013 [facility] [place] [facility] [address] [id number] [place] [address]- 3356 Jun, 2013 [facility] [place] [facility] [address] [id number] [place] [address]- 2138 May, [facility] [place] [facility] [address] [id number] [place] [address]- 9608 May, [facility] [place] [facility] [address] [id number] [place] [address]- 3416 May, [facility] [place] [facility] [address] [id number] [place] [address]- 8372 May, [facility] [place] [facility] [address] [id number] [place] [address]- 2543 May, [facility] [place] [facility] [address] [id number] [place] [address]- 6520 May, [facility] [place] [facility] [address] [id number] [place] [address]- 7709 May, [facility] [place] [facility] [address] [id number] [place] [address]- 9083 May, [facility] [place] [facility] [address] [id number] [place] [address]- 1651 May, [facility] [place] [facility] [address] [id number] [place] [address]- 8336 May, [facility] [place] [facility] [address] [id number] [place] [address]- 6322 May, [facility] [place] [facility] [address] [id number] [place] [address]- 5916 May, [facility] [place] [facility] [address] [id number] [place] [address]- 5889 May, [facility] [place] [facility] [address] [id number] [place] [address]- 8036 Apr, [facility] [place] [facility] [address] [id number] [place] [address]- 4140 Apr, [facility] [place] [facility] [address] [id number] [place] [address]- 2460 Apr, [facility] [place] [facility] [address] [id number] [place] [address]- 1944 Apr, [facility] [place] [facility] [address] [id number] [place] [address]- 3806 Apr, [facility] [place] [facility] [address] [id number] [place] [address]- 5984 Mar, [facility] [place] [facility] [address] [id number] [place] [address]- 2940 Mar, [facility] [place] [facility] [address] [id number] [place] [address]- 8281 Mar, [facility] [place] [facility] [address] [id number] [place] [address]- 0097 February, [facility] [place] [facility] [address] [id number] [place] [address]- 7571 February, [facility] [place] [facility] [address] [id number] [place] [address]- 0978 February, [facility] [place] [facility] [address] [id number] [place] [address]- 7171 February, [facility] [place] [facility] [address] [id number] [place] [address]- 0624 February, [facility] [place] [facility] [address] [id number] [place] [address]- 2913 February, [facility] [place] [facility] [address] [id number] [place] [address]- 5926 February, [facility] [place] [facility] [address] [id number] [place] [address]- 3538 February, [facility] [place] [facility] [address] [id number] [place] [address]- 4745 February, [facility] [place] [facility] [address] [id number] [place] [address]- 4372 Jan, [facility] [place] [facility] [address] [id number] [place] [address]- 0950 Jan, [facility] [place] [facility] [address] [id number] [place] [address]- 8316 Jan, [facility] [place] [facility] [address] [id number] [place] [address]- 0621 Jan, [facility] [place] [facility] [address] [id number] [place] [address]- 7155 Jan, [facility] [place] [facility] [address] [id number] [place] [address]- 8163 Dec, [facility] [place] [facility] [address] [id number] [place] [address]- 8777 Dec, [facility] [place] [facility] [address] [id number] [place] [address]- 4709 Dec, [facility] [place] [facility] [address] [id number] [place] [address]- 5034 Dec, [facility] [place] [facility] [address] [id number] [place] [address]- 0233 Dec, [facility] [place] [facility] [address] [id number] [place] [address]- 5241 Nov, [facility] [place] [facility] [address] [id number] [place] [address]- 2776 Nov, [facility] [place] [facility] [address] [id number] [place] [address]- 3566 Nov, [facility] [place] [facility] [address] [id number] [place] [address]- 9240 Nov, [facility] [place] [facility] [address] [id number] [place] [address]- 0917 Oct, [facility] [place] [facility] [address] [id number] [place] [address]- 2761 Oct, [facility] [place] [facility] [address] [id number] [place] [address]- 8589 Oct, [facility] [place] [facility] [address] [id number] [place] [address]- 6943 Oct, [facility] [place] [facility] [address] [id number] [place] [address]- 6427 Oct, [facility] [place] [facility] [address] [id number] [place] [address]- 2057 Oct, [facility] [place] [facility] [address] [id number] [place] [address]- 0023 Oct, [facility] [place] [facility] [address] [id number] [place] [address]- 8119 Oct, [facility] [place] [facility] [address] [id number] [place] [address]- 5986 Oct, [facility] [place] [facility] [address] [id number] [place] [address]- 9891 Oct, [facility] [place] [facility] [address] [id number] [place] [address]- 2914 Aug, [facility] [place] [facility] [address] [id number] [place] [address]- 3141 Aug, [facility] [place] [facility] [address] [id number] [place] [address]- 9172 Jul, [facility] [place] [facility] [address] [facility] [id number] [place] [address]- 9946 Jul, [facility] [place] [facility] [address] [id number] [place] [address]- 8389 Jul, [facility] [place] [facility] [address] [id number] [place] [address]- 3488 Jul, [facility] [place] [facility] [address] [id number] [place] [address]- 0237 Jul, [facility] [place] [facility] [address] [facility] [id number] [place] [address]- 8588 Jul, [facility] [place] [facility] [address] [id number] [place] [address]- 7460 Apr, [facility] [place] [facility] [address] [id number] [place] [address]- 0538 Dec, [facility] [place] [facility] [address] [facility] [id number] [place] [address]- 8324 Nov, [facility] [place] [facility] [address] [id number] [place] [address]- 7259 Nov, [facility] [place] [facility] [address] [id number] [place] [address]- 2540 Nov, [facility] [place] [facility] [address] [id number] [place] [address]- 2546 Oct, [facility] [place] [facility] [address] [facility] [id number] [place] [address] 2546 Sep, [facility] [place] [facility] [address] [facility] [id number] [place] [address]- 2546 Sep, [facility] [place] [facility] [address] [id number] [place] [address]- 2272 Sep, [facility] [address] [id number] [place] [address]- 8628 Sep, [facility] [place] [facility] [address] [id number] [place] [address]- 1816 Aug, [facility] [address] [id number] [place] [address]- 2276 Aug, [facility] [place] [facility] [address] [id number] [place] [address]- 1807 Jul, [facility] [address] [id number] [place] [address], [place] [address]90 Jul, [facility] [place] [facility] [address] [id number] [place] [address]- 2406 28 Jun, 2012 [facility] [place] [facility] [address] [id number] [place] [address]- 7498 26 Jun, 2012 [facility] [place] [facility] [address] [id number] [place] [address]- 2842 24 Jun, 2012 [facility] [place] [facility] [address] [id number] [place] [address]- 2146 24 Jun, 2012 [facility] [place] [facility] [address] [facility] [id number] [place] [address]- 7486 12 Jun, 2012 [facility] [place] [facility] [address] [id number] [place] [address] 2540 31 Apr, 2012 [facility] [place] [facility] [address] [id number] [place] [address]- 3380 30 Apr, 2012 [facility] [place] [facility] [address] [id number] [place] [address]- 1536 24 Apr, 2012 [facility] [place] [facility] [address] [id number] [place] [address]- 0298 Mar, [facility] [place] [facility] [address] [facility] [id number] [place] [address]- 7809 05 Mar, 2012 [facility] [address] [id number] [place] [address]- 9963 Mar, [facility] [place] [facility] [address] [id number] [place] [address]- 0366 February, [facility] [place] [facility] [address] [id number] [place] [address]- 8236 Jan, [facility] [place] [facility] [address] [id number] [place] [address]- 8166 Dec, [facility] [place] [facility] [address] [id number] [place] [address]- 0993 Dec, [facility] [place] [facility] [address] [id number] [place] [address]- 6086 Dec, [facility] [place] [facility] [address] [id number] [place] [address]- 2026 Dec, [facility] [place] [facility] [address] [id number] [place] [address]- 4576 Dec, [facility] [place] [facility] [address] [id number] [place] [address]- 8839 Nov, [facility] [place] [facility] [address] [id number] [place] [address]- 1996 Nov, [facility] [place] [facility] [address] [id number] [place] [address]- 8066 Oct, [facility] [place] [facility] [address] [id number] [place] [address] Oct, [facility] [place] [facility] [address] [id number] [place] [address] Oct, [facility] [place] [facility] [address] [id number] [place] [address] Sep, [facility] [place] [facility] [address] [id number] [place] [address] Aug, [facility] [place] [facility] [address] [id number] [place] [address] 10 Aug, 2011 [facility] [place] [facility] [address] [id number] [place] [address] 28 Jul, 2011 [facility] [place] [facility] [address] [id number] [place] [address] 24 Jul, 2011 [facility] [place] [facility] [address] [id number] [place] [address] 19 Jul, 2011 [facility] [place] [facility] [address] [id number] [place] [address] 13 Jan, 2011 [facility] [place] [facility] [address] [id number] [place] [address], [place] [address]- [address] 29 Sep, 2010 [facility] [place] [facility] [address] [id number] [place] [address] 27 Sep, 2010 [facility] [place] [facility] [address] [id number] [place] [address] Sep, [facility] [place] [facility] [address] [id number] [place] [address] 20 Sep, 2010 [facility] [place] [facility] [address] [id number] [place] [address] 06 Sep, 2010 [facility] [place] [facility] [address] [id number] [place] [address] 16 Aug, 2010 [facility] [place] [facility] [address] [id number] [place] [address] 16 Aug, 2010 [facility] [place] [facility] [address] [id number] [place] [address] 08 Aug, 2010 [facility] [place] [facility] [address] [id number] [place] [address] 19 Jul, 2010 [facility] [place] [facility] [address] [id number] [place] [address]- [address] 19 Jul, 2010 [facility] [place] [facility] [address] [id number] [place] [address] 12 Jul, 2010 [facility] [place] [facility] [address] [id number] [place] [address] May, [facility] [place] [id number] [place] [address] Apr, [facility] [place] [id number] [place] [address] Dec, [facility] [place] [id number] [place] [address] Sep, [facility] [place] [id number] [place] [address] Sep, [facility] [place] [id number] [place] [address] Aug, [facility] [place] [id number] [place] [address] Aug, [facility] [place] [id number] [place] [address] Jul, [facility] [place] [id number] [place] [address] Mar, IMMUNIZATIONS No Known Immunizations SOCIAL HISTORY [...]
--- OUTSIDE RECORDS SUMMARY | 2018-10-08 20:34 | XMS REPORT ---
Author Author JENNY WOLF [facility] Address [address] [place] [address] Care Team Providers Care Igniter Capper Name Role Phone JENNY WOLF Unavailable PROBLEMS Type Condition ICD9-CM Code [id number] Code Onset Dates Condition Status SNOMED Code Problem Hypersomnia G47.10 Active 32034531 Problem Hand pain, left M79.642 Active 38613590 Problem Tobacco abuse Z72.0 Active 93659201 Problem Chronic migraine G43.709 Active 81885097 Problem Asthma J45.909 Active 352787853 Problem Calculus of right kidney N20.0 Active 31737428 Problem Spinal stenosis, lumbar region M48.06 Active 65869392 Problem Hand pain, right M79.641 Active 62701924 Problem Heart palpitations R00.2 Active 70659278 Problem Mixed hyperlipidemia E78.2 Active 559587649 Problem Edema of both feet R60.0 Active 384673815 Problem Bulging lumbar disc M51.26 Active 529315198 Problem Radiculopathy of lumbar region M54.16 Active 107880012 Problem Anxiety F41.9 Active 64867837 Problem Essential hypertension I10 Active 11339711 Problem HSV (herpes simplex virus) infection B00.9 Active 12418522 Problem Chronic pain G89.29 Active 81666814 Problem Type 2 diabetes mellitus without complication E11.9 Active 96912983 Problem Snoring R06.83 Active 10645646 Problem Gastroesophageal reflux disease without esophagitis K21.9 Active 069869511 Problem Daytime hypersomnia G47.19 Active [id number] ALLERGIES Substance Reaction Event Type Date Status Prozac severe nightmares Drug Allergy Dec, Active Levaquin Unknown Drug Allergy Dec, Active Diclofenac Sodium rash Drug Allergy Dec, Active ChloraPrep One Step Unknown Drug Allergy Dec, Active Quinolones Unknown Non Drug Allergy Dec, Active SOCIAL HISTORY Never Assessed PLAN OF CARE Activity Details Follow Up 3 Months Reason:DM/Pain VITAL SIGNS Height 63 in 2017-01-02 Weight 209.9 lbs 2017-01-02 Temperature 98.3 degrees Fahrenheit 2017-01-02 Heart Rate 92 bpm 2017-01-02 Respiratory Rate 20 2017-01-02 BMI 37.18 kg/m2 2017-01-02 Blood pressure systolic 116 mmHg 2017-01-02 Blood pressure diastolic 72 mmHg 2017-01-02 MEDICATIONS Medication Instructions Dosage Frequency Start Date End Date Duration Status Zovirax 5 % Externally Twice a day 1 application to affected area 12h Active Nystatin 274290 UNIT/GM Externally three times a day 1 application to affected area 8h Oct, Active Metoprolol Tartrate 25 MG Orally Twice a day 1 tablet with food 12h Active Hydrocodone-Acetaminophen 5-325 MG Orally four times a day as needed for pain. Must last 28 days. 1 tablet Active Lyrica 150 MG Orally Three times a day 1 capsule 8h Active ProAir HFA 108 (90 Base) MCG/ACT Inhalation every 4 hrs prn 2 puffs as needed Jun, 30 days Active Lisinopril 5 MG Orally Once a day 1 tablet 24h 30 day(s) Active Cane 1 as directed 24h May, 99 days Active Valacyclovir HCl 1 GM Orally every 24 hrs 1 tablet 30 Active Robaxin 500 MG Orally 3 times a day 1 tablet 8h Active Carafate 1 GM orally twice daily 1 tablet Active Symbicort 80-4.5 MCG/ACT Inhalation Twice a day 2 puffs 12h Jul, Active Bydureon 2 MG Subcutaneous weekly inject 2 mg 28 days Active Bydureon 2 MG Subcutaneous weekly inject 2 mg 28 Active Nabumetone 500 MG Orally Twice a day 1 tablet 12h May, Active Clorazepate Dipotassium 15 MG Orally 3 times a day prn must last 28 days. 1 tablet Active MS Contin 15 MG Orally every 12 hrs as needed must last 28 days 1 tablet Active Imitrex 100 MG Orally Once a day prn 1 tablet by Oral route 1 time per day and repeat once more after 2 hours if headache recurs PRN May, Active Glimepiride 2 MG Orally twice a day 1 tablet 12h 90 Active Blood Glucose Monitor System w/Device test blood sugar Oct, Active Lidocaine 5 % Externally Three times a day 1 application to affected area as needed 8h Active Flonase 50 mcg/actuation Nasally Once a day 1 sprays by Nasal route 2 times per day in each nostril 24h May, 30 days Active RESULTS Name Result Date Reference Range A1C (IN HOUSE) 2017-01-02 A1C IN HOUSE 6.6 4.3 - 5.6 % Previous A1c 10.3 Lot [id number] Exp date MAGNESIUM, SERUM 2017-01-02 Magnesium, Serum 2.0 1.6-2.3 CBC 2017-01-02 WBC 16.1 3.4-10.8 RBC 4.59 3.77-5.28 Hemoglobin 14.0 11.1-15.9 Hematocrit 42.0 34.0-46.6 MCV 92 79-97 MCH 30.5 26.6-33.0 MCHC 33.3 31.5-35.7 RDW 14.3 12.3-15.4 Platelets 384 150-379 Neutrophils 72 Lymphs 23 Monocytes 4 Eos 1 Basos 0 Neutrophils (Absolute) 11.5 1.4-7.0 Lymphs (Absolute) 3.6 0.7-3.1 Monocytes(Absolute) 0.6 0.1-0.9 Eos (Absolute) 0.2 0.0-0.4 Baso (Absolute) 0.1 0.0-0.2 Immature Granulocytes 0 Immature Grans (Abs) 0.0 0.0-0.1 CMP 2017-01-02 Glucose, Serum 126 65-99 BUN 16 6-20 Creatinine, Serum 0.96 0.57-1.00 eGFR If NonAfricn Am 77 >59 eGFR If Africn Am 89 >59 BUN/Creatinine Ratio 17 8-20 Sodium, Serum 139 134-144 Potassium, Serum 4.6 3.5-5.2 Chloride, Serum 98 96-106 Carbon Dioxide, Total 21 18-29 Calcium, Serum 9.9 8.7-10.2 Protein, Total, Serum 7.4 6.0-8.5 Albumin, Serum 4.8 3.5-5.5 Globulin, Total 2.6 1.5-4.5 A/G Ratio 1.8 1.2-2.2 Bilirubin, Total 0.5 0.0-1.2 Alkaline Phosphatase, S 96 39-117 AST (SGOT) 20 0-40 ALT (SGPT) 31 0-32 LIPID PANEL 2017-01-02 Cholesterol, Total 230 100-199 Triglycerides 566 0-149 HDL Cholesterol 29 >39 VLDL Cholesterol Reginaldo 5-40 LDL Cholesterol Calc 0-99 PROCEDURES Procedure Date Ordered Result Body Site GLYCATED HEMOGLOBIN TEST January 02, 2017 THER/PROPH/DIAG INJ, SC/IM January 02, 2017 TORADOL (IM) 60 MG/2ML (UP TO 15 MG) January 02, 2017 VENIPUNCT, ROUTINE* January 02, 2017 COMPLETE CBC W/AUTO DIFF WBC January 02, 2017 ASSAY OF MAGNESIUM January 02, 2017 COMPREHEN METABOLIC PANEL January 02, 2017 LIPID PANEL January 02, 2017 IMMUNIZATIONS Vaccine Route Administration Date Status TORADOL (IM) 60 MG/2ML (UP TO 15 MG) IM Intramuscular January 02, 2017 Administered MEDICAL (GENERAL) HISTORY Type Description Date Medical [...]
--- OUTSIDE RECORDS SUMMARY | 2018-10-08 20:36 | XMS REPORT ---
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 803576727 Problem Edema of both feet R60.0 Active 652279220 Problem Tobacco abuse Z72.0 Active 71090265 Problem Chronic migraine G43.709 Active 66337337 Problem Mixed hyperlipidemia E78.2 Active 921967374 Problem Spinal stenosis, lumbar region M48.06 Active 35356926 Problem Anxiety F41.9 Active 91550897 Problem Radiculopathy of lumbar region M54.16 Active 740431278 Problem Bulging lumbar disc M51.26 Active 447269076 Problem Asthma J45.909 Active 868354118 Problem Essential hypertension I10 Active 97901691 ALLERGIES Substance Reaction Event Type Date Status Prozac severe nightmares Drug Allergy Sep, Active Levaquin Unknown Drug Allergy Sep, Active Diclofenac Sodium rash Drug Allergy Sep, Active ChloraPrep One Step Unknown Drug Allergy Sep, Active Quinolones Unknown Non Drug Allergy Sep, Active ENCOUNTERS Encounter Location Date Diagnosis [facility] [address] [facility] [id number] [address] Mar, [facility] [address] [facility] [id number] [address] Mar, [facility] [address] 35961- 4898 Mar, Chronic pain G89.29 [place] [address] 92421- 3641 February, Chronic pain G89.29 [place] [address] 23439- 7970 Jan, Chronic pain G89.29 [place] [address] 21250- 7886 Jan, correction 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 Z79.4 [place] [address] 854436- 3760 Jan, Encounter for Depo-Provera contraception Z30.42 [place] [address] 83385- 8052 Jan, [place] [address] 95507- 1699 Jan, Chronic pain G89.29 and Anxiety F41.9 [place] [address] 29371- 2514 Jan, [place] [address] 22804- 2392 Dec, [place] [address] 65444- 0944 Dec, Gastroesophageal reflux disease without esophagitis K21.9 and Anxiety F41.9 [place] [address] 27989- 0942 Dec, Essential hypertension I10 ; Mixed hyperlipidemia E78.2 ; Type 2 diabetes mellitus with diabetic neuropathy, unspecified E11.40 ; 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 ; Chronic pain G89.29 ; HSV (herpes simplex virus) infection B00.9 ; Anxiety F41.9 and Gastroesophageal reflux disease without esophagitis K21.9 [place] [address] 72306- 6140 Dec, Chronic pain G89.29 and Chronic migraine G43.709 [place] [address] 13720- 8611 Nov, [place] [address] 99500- 1767 Nov, Essential hypertension I10 and Chronic pain G89.29 [place] [address] 93787- 9492 Nov, Chronic pain G89.29 ; Essential hypertension I10 and Type 2 diabetes mellitus without complication E11.[address] 19707- 0312 Oct, Chronic pain G89.29 [place] [address] 26405- 4154 Oct, [place] [address] 80797- 2214 Sep, Type 2 diabetes mellitus without complication E11.9 ; Essential hypertension I10 ; warehouse production worker (current) use of insulin Z79.4 ; Chronic migraine G43.709 ; Chronic pain G89.29 and Acute non-recurrent maxillary sinusitis J01.00 [place] [id number] [place] [address] 93212- 1115 Sep, Encounter for Depo-Provera contraception Z30.42 [place] [address] [place] [id number] [place] [address] 73070- 1846 Sep, Chronic pain G89.29 and Radiculopathy of lumbar region M54.[address] 99999- 3406 Sep, [address] 29369- 8521 Sep, [address] 19256- 3321 Aug, Type 2 diabetes mellitus without complication E11.9 [facility] [address] [address] Aug, [facility] [address] [place] [address] 23767- 6344 Aug, Radiculopathy of lumbar region M54.16 and Chronic pain G89.29 [facility] [address] [place] [id number] [place] [address] 94033- 6314 Aug, Type 2 diabetes mellitus without complication E11.9 [facility] [address] [address] 0291 Aug, Type 2 diabetes mellitus without complication E11.9 [facility] [address] [place] [id number] [place] [address] 74940- 6937 Jul, Type 2 diabetes mellitus without complication E11.9 [facility] [address] [place] [id number] [place] [address] 53938- 4712 Jul, [facility] [address] [place] [address] 35855- 3178 Jul, Chronic pain G89.29 [facility] [address] [place] [id number] [place] [address] 15846- 9558 Jul, [facility] [address] [address] 8217 Jul, [facility] [address] [place] [address] 07387- 3429 Jul, Type 2 diabetes mellitus without complication E11.9 [facility] [address] [address]- 6529 Jul, [facility] [address] [place] [id number] [place] [address] 56776- 0245 Jul, Type 2 diabetes mellitus without complication E11.9 [facility] [address] [address]- 5652 Jul, [place] [address] [place] [address] 07422- 2103 Jul, [place] [address] [place] [id number] [place] [address] 10961- 4367 Jul, [place] [address] [place] [id number] [place] [address] 22711- 1826 Jun, Type 2 diabetes mellitus without complication E11.9 [place] [address] 86735- 7719 Jun, Chronic migraine G43.709 ; Type 2 diabetes mellitus without complication E11.9 ; Calculus of right kidney N20.0 ; Yeast dermatitis B37.2 and HSV (herpes simplex virus) infection B00.9 [place] [address] [place] [id number] [place] [address] 79776- 4381 Jun, Type 2 diabetes mellitus without complication E11.9 [place] [address] [place] [id number] [place] [address] 74445- 8741 Jun, [place] [address] [place] [id number] [place] [address] 81171- 7722 Jun, Radiculopathy of lumbar region M54.16 and Chronic pain G89.29 [place] [address] [place] [id number] [place] [address] 52028- 6390 Jun, Encounter for Depo-Provera contraception Z30.42 [place] [address] [place] [id number] [place] [address] 04547- 9848 Jun, Type 2 diabetes mellitus without complication E11.9 [place] [address] [place] [id number] [place] [address] 57610- 0554 Jun, [facility] [address] [place] [id number] [place] [address] 52623 -4294 May, Acute nasopharyngitis (common cold) J00 [place] [address] [place] [id number] [place] [address] 91825- 5573 May, Chronic pain G89.29 [place] [address] [place] [id number] [place] [address] 46737- 1705 May, Headache following lumbar puncture G97.1 [place] [address] [place] [id number] [place] [address] 90895- 4453 08 May, 2017 Radiculopathy of lumbar region M54.16 [place] [id number] [place] [address] 53186- 3640 Apr, [place] [address] [place] [id number] [place] [address] 10045- 0949 Apr, Type 2 diabetes mellitus without complication E11.9 ; Chronic pain G89.29 ; Essential hypertension I10 ; Radiculopathy of lumbar region M54.16 ; Spinal stenosis, lumbar region M48.06 ; Gastroesophageal reflux disease without esophagitis K21.9 ; HSV (herpes simplex virus) infection B00.9 ; Mixed hyperlipidemia E78.2 ; Anxiety F41.9 and Asthma J45.909 [place] [id number] [place] [address] 78483- 0656 Apr, Encounter for Depo-Provera contraception Z30.42 [place] [id number] [place] [address] 37360- 7406 Apr, Chronic pain G89.29 and Anxiety F41.9 [place] [id number] [place] [address] 63806- 7773 Mar, [place] [address] [place] [id number] [place] [address] 32412- 0898 Mar, [place] [address] [place] [id number] [place] [address] 12472- 3285 Mar, Mixed hyperlipidemia E78.2 [place] [address] [place] [id number] [place] [address] 81816- 0067 Mar, Type 2 diabetes mellitus without complication E11.9 ; Chronic pain G89.29 ; Essential hypertension I10 ; Radiculopathy of lumbar region M54.16 ; Spinal stenosis, lumbar region M48.06 ; Gastroesophageal reflux disease without esophagitis K21.9 ; HSV (herpes simplex virus) infection B00.9 ; Mixed hyperlipidemia E78.2 and Anxiety F41.9 [facility] [address] [place] [id number] [place] [address] 51029- 1025 Mar, [facility] [address] [place] [id number] [place] [address] 15765- 5893 Mar, [facility] [address] [place] [id number] [place] [address] 79795- 9147 Mar, [facility] [address] [place] [id number] [place] [address] 11779- 8144 February, Chronic pain G89.29 [facility] [address] [place] [id number] [place] [address] 15720- 9099 February, [facility] [address] [place] [id number] [place] [address] 35139- 9828 Jan, Chronic pain G89.29 [facility] [address] [place] [id number] [place] [address] 51002- 7836 Jan, Type 2 diabetes mellitus without complication E11.9 [place] [address] [place] [id number] [place] [address] 31187- 5927 Jan, [facility] [address] [place] [id number] [place] [address] 57495- 6628 Jan, [facility] [address] [place] [id number] [place] [address] 79760- 2037 Jan, [facility] [address] [place] [id number] [place] [address] 94100- 6511 Jan, Type 2 diabetes mellitus without complication [...] J01.00 and Encounter for Depo-Provera contraception Z30.42 [place] [address] [place] [id number] [place] [address] 36853- 6737 28 Dec, 2016 Chronic pain G89.29 [place] [address] 17350- 4301 Dec, Abnormal ankle brachial index (BERNARDINO) R68.89 [place] [address] 10010- 8696 Dec, [place] [address] 95989- 1162 Dec, Routine gynecological examination Z01.419 ; Chronic [...] B00.9 and Allergic rhinitis 477.9 [place] [address] 15483- 1225 28 Nov, 2016 Chronic pain G89.29 [place] [address] [place] [id number] [place] [address] 94423- 1415 02 Nov, 2016 Chronic pain G89.29 ; [...] media of both ears H65.113 [place] [address] [place] [id number] [place] [address] 98838- 5567 Oct, [place] [address] [place] [address] 76508- 0227 Oct, Chronic pain G89.29 [place] [address] [place] [id number] [place] [address] 06304- 7204 Oct, Chronic pain G89.29 [place] [address] [place] [id number] [place] [address] 01075- 3579 Sep, Chronic pain G89.29 ; Type 2 diabetes mellitus without complication E11.9 ; Essential hypertension I10 ; Radiculopathy of lumbar region M54.16 ; Spinal stenosis, lumbar region M48.06 ; Gastroesophageal reflux disease without esophagitis K21.9 ; Encounter for surveillance of injectable contraceptive Z30.42 ; Bilateral cold feet R20.9 ; Pain of left foot M79.672 and Pain in right foot M79.671 [place] [address] [place] [id number] [place] [address] 72917- 0268 Sep, [place] [address] [place] [id number] [place] [address] 09137- 8747 Aug, [place] [address] [place] [id number] [place] [address] 32598- 0676 Aug, [place] [address] [place] [id number] [place] [address] 72874- 0240 Aug, Chronic pain G89.29 ; Type 2 diabetes mellitus without complication E11.9 ; Essential hypertension I10 ; Rash and nonspecific skin eruption R21 and Upper respiratory infection, acute J06.9 [place] [address] [place] [address] 29474- 1736 Aug, [place] [address] [place] [id number] [place] [address] 93946- 8158 Aug, [place] [address] [place] [id number] [place] [address] 11433- 5238 Jul, [place] [address] [place] [id number] [place] [address] 82380- 7858 Jul, Dysuria R30.0 ; Encounter for Depo-Provera contraception Z30.42 ; Herpes simplex B00.9 ; Nausea & vomiting R11.2 and Asthma J45.909 [facility] [address] [place] [id number] [place] [address] 41847- 0816 21 Jun, 2016 Dysuria R30.0 [facility] [address] [place] [id number] [place] [address] 01228- 8468 19 Jun, 2016 Dysuria R30.0 [facility] [address] 55776- 2205 15 Jun, 2016 [place] [address] 36717- 0062 13 Jun, 2016 [place] [address] 22596- 2630 May, [place] [address] 44718- 1982 May, [facility] [address] [place] [id number] [place] [address] 26043- 7626 May, Chronic pain G89.29 ; Essential hypertension I10 ; Type 2 diabetes mellitus without complication E11.9 ; Edema of both feet R60.0 and Rash and nonspecific skin eruption R21 [place] [address] [place] [id number] [place] [address] 44144- 6676 Apr, [facility] [address] [place] [id number] [place] [address] 17000- 1879 Mar, Carpal tunnel syndrome, left upper limb G56.02 and Carpal tunnel syndrome, right upper limb G56.01 [place] [address] [place] [id number] [place] [address] 79490- 0782 Mar, [place] [address] 81291- 2323 Mar, Encounter for Depo-Provera contraception Z30.42 [facility] [address] 18163- 6396 February, [place] [address] [place] [id number] [place] [address] 54452- 8150 February, [place] [address] 30457- 5576 February, Chronic pain G89.29 ; Essential hypertension I10 ; Type 2 diabetes mellitus without complication E11.9 ; HSV (herpes simplex virus) infection B00.9 ; Anxiety F41.9 ; Hypersomnia G47.10 ; Tobacco abuse Z72.0 ; Hand pain, left M79.642 ; Hand pain, right M79.641 ; Left foot pain M79.672 and Heart palpitations R00.2 [place] [address] 41716- 4708 Jan, [place] [address] 93947- 8231 Jan, [place] [address] 33088- 5447 Jan, [place] [address] [place] [id number] [place] [address] 77177- 5313 Jan, [place] [address] [place] [id number] [place] [address] 15593- 8403 Jan, Upper respiratory infection J06.9 and Type 2 diabetes mellitus without complication E11.9 [place] [address] [place] [id number] [place] [address] 50479- 9406 Dec, [place] [address] [place] [id number] [place] [address] 66334- 3711 Dec, Chronic pain G89.29 ; Essential hypertension I10 ; Type 2 diabetes mellitus without complication E11.9 ; HSV (herpes simplex virus) infection B00.9 ; Anxiety F41.9 ; Upper respiratory infection J06.9 ; Hypersomnia G47.10 and Tobacco abuse Z72.0 [place] [address] [place] [id number] [place] [address] 82655- 1272 Dec, Encounter for Depo-Provera contraception Z30.42 [place] [address] [place] [id number] [place] [address] 48112- 9585 Dec, [address] 07460- 5721 Dec, Chronic pain G89.29 ; Sinusitis J32.9 ; Snoring R06.83 and Daytime hypersomnia G47.[address] 54958- 4343 Nov, HSV (herpes simplex virus) infection B00.9 ; Encounter for Papanicolaou smear for cervical cancer screening Z12.4 ; Screening for STD sexually transmitted disease Z11.3 and Bartholin's gland cyst N75.0 [place] [address] [place] [id number] [place] [address] 85417- 2158 Nov, [place] [address] 81731- 5023 Nov, [place] [address] 98501- 9683 Nov, Essential hypertension I10 ; Type 2 diabetes mellitus without complication E11.9 ; HSV (herpes simplex virus) infection B00.9 ; Spinal stenosis, lumbar region M48.06 and Vaginal yeast infection B37.3 [place] [address] [place] [id number] [place] [address] 23795- 7545 Nov, [place] [address] [place] [id number] [place] [address] 33721- 5605 Nov, [place] [address] [place] [id number] [place] [address] 21277- 7725 Oct, [address] 44304- 2669 Oct, HSV (herpes simplex virus) infection B00.9 ; Yeast infection B37.9 ; Change in bowel habit R19.4 ; Nausea & vomiting R11.2 and Gastroesophageal reflux disease without esophagitis K21.9 [place] [address] 16992- 5451 Oct, [address] 59479- 4820 Oct, Type 2 diabetes mellitus without complication E11.9 ; Essential hypertension I10 and Acute maxillary sinusitis, recurrence not specified J01.[address] 89814- 9935 Oct, [address] 96969- 9223 Oct, [address] 23400- 6451 Oct, Exposure to head lice Z20.7 ; Blood glucose abnormal R73.09 ; Boil of buttock L02.32 and Type 2 diabetes mellitus without complication E11.[address] 00157- 1048 Oct, [address] 27879- 8255 Sep, [address] 45474- 8327 Sep, [address] 06965- 9235 Aug, Encounter for Depo-Provera contraception Z30.[address] 87518- 1417 Aug, Anxiety F41.9 ; Spinal stenosis, lumbar region M48.06 ; Radiculopathy of lumbar region M54.16 ; Asthma J45.909 ; GERD (gastroesophageal reflux disease) K21.9 ; Essential hypertension I10 and Long-term use of high- risk medication Z79.[address] 13320- 7928 Jul, [address] 62300- 2173 Jun, Hemorrhoid 455.[address] 74227- 4808 Jun, [address] 30738- 3791 Jun, Anxiety 300.00 ; Asthma 493.90 ; Hyperhidrosis 705.21 ; Chest discomfort 786.59 and Upper respiratory infection 465.[address] 57564- 5993 May, Encounter for Depo-Provera contraception V25.[address] 43741- 4787 May, [address] 08876- 6418 May, [address] 51072- 6354 May, Spinal stenosis of lumbar region with radiculopathy 724.02 ; Bulging of intervertebral disc between L4 and L5 722.10 ; GERD ( gastroesophageal reflux disease) 530.81 ; Chronic pain 338.29 ; Declining mobility 799.89 and Epigastric pain 789.[address] 52926- 8109 Apr, [address] 65053- 9366 Apr, Nausea 787.02 and Heart burn 787.[address] 41626- 7725 Mar, Lumbago 724.2 ; Vitamin D deficiency 268.9 ; Anxiety 300.00 ; Allergic rhinitis 477.9 and Contraceptive surveillance V25.[address] 43934- 6503 February, 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 ; Chronic pain 338.29 and Vaginal discharge 623.5 [facility] [address] [place] [address]- 9211 February, [facility] [address] [facility] [id number] [place] [address]- 9476 February, [facility] [address] [facility] [id number] [place] [address]- 3386 Jan, [facility] [address] [facility] [id number] [place] [address]- 0791 Jan, [facility] [address]- 2477 Dec, [facility] [address] [facility] [id number] [place] [address]- 5874 Dec, [facility] [address] [place] [address]- 2565 Dec, [facility] [address] [place] [id number] [address]- 0612 Dec, [facility] [address] [place] [address]- 0410 Dec, [facility] [address] [id number] [address]- 4716 Dec, [facility] [address] [address]- 9360 Dec, [facility] [address] [facility] [id number] [address]- 1857 Dec, [facility] [address] [address]- 6930 Dec, [facility] [address] [facility] [id number] [address]- 1876 Dec, [facility] [address] [id number] [address]- 8586 Dec, [facility] [place] [facility] [address] [id number] [place] [address]- 4359 Dec, [facility] [place] [facility] [address] [id number] [place] [address]- 4423 Nov, 2014 [facility] [place] [facility] [address] [facility] [id number] [place] [address]- 5654 Nov, 2014 [facility] [place] [facility] [address] [facility] [id number] [place] [address]- 6377 24 Nov, 2014 [facility] [place] [facility] [address] [id number] [place] [address]- 9806 24 Nov, 2014 [facility] [place] [facility] [address] [facility] [id number] [place] [address]- 6315 23 Nov, 2014 [facility] [place] [facility] [address] [facility] [id number] [place] [address]- 9874 23 Nov, 2014 [facility] [place] [facility] [address] [facility] [id number] [place] [address]- 2110 16 Nov, 2014 [facility] [place] [facility] [address] [facility] [id number] [place] [address]- 9385 16 Nov, 2014 [facility] [place] [facility] [address] [facility] [id number] [place] [address]- 1786 13 Nov, 2014 [facility] [place] [facility] [address] [facility] [id number] [place] [address] 13 Nov, 2014 [facility] [place] [facility] [address] [facility] [id number] [place] [address] 13 Nov, 2014 [facility] [place] [facility] [address] [facility] [id number] [place] [address] 13 Nov, 2014 [facility] [place] [facility] [address] [facility] [id number] [place] [address] 13 Nov, 2014 [facility] [place] [facility] [address] [facility] [id number] [place] [address] 13 Nov, 2014 [facility] [place] [facility] [address] [id number] [place] [address] Nov, 2014 [facility] [place] [facility] [address] [id number] [place] [address] Nov, 2014 [facility] [place] [facility] [address] [id number] [place] [address] Nov, 2014 [facility] [place] [facility] [address] [id number] [place] [address] Nov, 2014 [facility] [place] [facility] [address] [id number] [place] [address] Nov, 2014 [facility] [place] [facility] [address] [id number] [place] [address] Nov, 2014 [facility] [place] [facility] [address] [facility] [id number] [place] [address] Nov, 2014 [facility] [place] [facility] [address] [id number] [place] [address] Nov, 2014 [facility] [facility] [address] [id number] [place] [address] Nov, [facility] [place] [facility] [address] [facility] [id number] [place] [address] Oct, [facility] [place] [facility] [address] [id number] [place] [address]497 Oct, [facility] [place] [facility] [address] [id number] [place] [address] 1537 Oct, [facility] [place] [facility] [address] [id number] [place] [address] 7663 Oct, [facility] [place] [facility] [address] [id number] [place] [address] 4917 Oct, [facility] [place] [facility] [address] [facility] [id number] [place] [address] 1897 Oct, [facility] [place] [facility] [address] [id number] [place] [address] 1697 Oct, [facility] [place] [facility] [address] [id number] [place] [address] 8750 Oct, [facility] [place] [facility] [address] [id number] [place] [address] 9781 Oct, [facility] [place] [facility] [address] [id number] [place] [address] 4394 Oct, [facility] [place] [facility] [address] [id number] [place] [address] 1741 Oct, [facility] [place] [facility] [address] [id number] [place] [address]- 5092 Oct, [facility] [place] [facility] [address] [id number] [place] [address]- 8599 Oct, [facility] [address] [id number] [place] [address]- 2147 Oct, [facility] [place] [facility] [address] [id number] [place] [address]- 2806 Oct, [facility] [place] [facility] [address] [id number] [place] [address]- 4268 Oct, [facility] [place] [facility] [address] [id number] [place] [address]- 9062 Oct, [facility] [place] [facility] [address] [id number] [place] [address]- 4490 Oct, [facility] [place] [facility] [address] [id number] [place] [address]- 4645 Oct, [facility] [place] [facility] [address] [id number] [place] [address]- 1564 Oct, [facility] [place] [facility] [address] [id number] [place] [address]- 5516 Oct, [facility] [place] [facility] [address] [id number] [place] [address]- 4946 Sep, [facility] [place] [facility] [address] [id number] [place] [address]- 5808 29 Sep, 2014 [facility] [facility] [address] [id number] [place] [address]- 1230 Sep, [facility] [place] [facility] [address] [id number] [place] [address] Sep, [facility] [place] [facility] [address] [id number] [place] [address]- 9233 Sep, [facility] [place] [facility] [address] [id number] [place] [address]- 8275 Sep, [facility] [place] [facility] [address] [id number] [place] [address]- 1258 Sep, [facility] [place] [facility] [address] [id number] [place] [address]- 4729 Sep, [facility] [place] [facility] [address] [id number] [place] [address]- 0354 Sep, [facility] [place] [facility] [address] [id number] [place] [address]- 6942 Sep, [facility] [place] [facility] [address] [id number] [place] [address]- 6954 Sep, [facility] [address] [id number] [place] [address]- 1351 Sep, [facility] [place] [facility] [address] [id number] [place] [address]- 9576 Sep, [facility] [address] [id number] [place] [address]- 2943 Sep, [facility] [facility] [address] [id number] [place] [address]- 9058 Sep, [facility] [place] [facility] [address] [id number] [place] [address]- 9091 Sep, [facility] [facility] [address] [id number] [address] 0677 Sep, [facility] [facility] [address] [id number] [place] [address]- 1423 Sep, [facility] [place] [facility] [address] [id number] [place] [address]- 4359 Sep, [facility] [address] [id number] [place] [address]- 6720 Sep, [facility] [address] [id number] [place] [address]- 2963 Aug, [facility] [address] [id number] [place] [address]- 3066 Aug, [facility] [address] [id number] [place] [address]- 5045 Aug, [facility] [address] [id number] [place] [address]- 1919 Aug, [facility] [address] [id number] [place] [address]- 3444 Aug, [facility] [address] [id number] [place] [address]- 4845 Aug, [facility] [address] [id number] [place] [address]- 8811 Aug, [facility] [address] [id number], [place] [address]- 5480 Aug, [facility] [address] [id number], [place] [address]- 0716 Aug, [facility] [address] [id number] [place] [address]- 9723 Jul, [facility] [address] [id number] [place] [address]- 5645 Jul, [facility] [address] [id number] [place] [address]- 0584 Jul, [facility] [address] [id number] [place] [address]- 2504 23 Jul, 2013 [facility] [address] [id number] [place] [address]- 0587 16 Jul, 2013 [facility] [address] [id number] [place] [address]- 3436 16 Jul, 2013 [facility] [address] [id number] [place] [address]- 2529 Jul, 2013 [facility] [facility] [address] [id number] [place] [address]- 5026 13 Jul, 2013 [facility] [address] [id number] [place] [address]- 6124 10 Jul, 2013 [facility] [address] [id number] [place] [address]- 4319 10 Jul, 2013 [facility] [address] [id number] [place] [address]- 2421 10 Jul, 2013 [facility] [address] [id number] [place] [address]- 2557 10 Jul, 2014 [facility] [address] [id number] [place] [address]- 6709 07 Jul, 2013 [facility] [address] [id number] [place] [address]- 9515 07 Jul, 2014 [facility] [address] [id number] [place] [address]- 2487 30 Jun, 2013 [facility] [address] [id number] [place] [address]- 2540 30 Sep, 2013 [facility] [address] [id number] [place] [address]- 1524 25 Jun, 2013 [facility] [address] [id number] [place] [address]- 2540 25 Jun, 2013 [facility] [address] [id number] [place] [address]- 5050 25 Sep, 2013 [facility] [address] [id number] [place] [address]- 5283 25 Sep, 2013 [facility] [address] [id number] [place] [address] 2546 24 Sep, 2013 [facility] [address] [id number] [place] [address] 2541 24 Sep, 2013 [facility] [address] [id number] [place] [address] 2548 22 Sep, 2013 [facility] [address] [id number] [place] [address]- 4511 22 Sep, 2013 [facility] [address] [id number] [place] [address]- 2625 17 Jun, 2013 [facility] [address] [id number] [place] [address]- 8384 17 Jun, 2013 [facility] [address] [id number] [place] [address]- 2086 16 Sep, 2013 [facility] [address] [id number] [place] [address]- 2040 16 Jun, 2013 [facility] [address] [id number] [place] [address]- 1408 15 Jun, 2013 [facility] [address] [id number] [place] [address] 2549 15 Jun, 2013 [facility] [address] [id number] [place] [address]- 5639 12 Sep, 2013 [facility] [address] [id number] [place] [address] 254 12 Sep, 2013 [facility] [address] [id number] [place] [address]- 2547 11 Jun, 2013 [facility] [address] [id number] [place] [address]- 8071 11 Jun, 2013 [facility] [address] [id number] [place] [address]- 4047 Jun, 2013 [facility] [address] [id number] [place] [address]- 1935 11 Jun, 2013 [facility] [address] [id number] [place] [address]- 7118 Jun, [facility] [address] [id number] [place] [address]- 1472 Jun, 2013 [facility] [address] [id number] [place] [address]- 6934 Jun, [facility] [address] [id number] [place] [address]- 3777 Jun, [facility] [address] [id number] [place] [address]- 7864 May, [facility] [address] [id number] [place] [address]- 2883 May, [facility] [address] [id number] [place] [address]- 7534 May, [facility] [address] [id number] [place] [address]- 4450 May, [facility] [address] [id number] [place] [address]- 0366 May, [facility] [address] [id number] [place] [address]- 7559 May, [facility] [address] [id number] [place] [address]- 8908 May, [facility] [address] [id number] [place] [address]- 9466 May, [facility] [address] [id number] [place] [address]- 4222 May, [facility] [address] [id number] [place] [address]- 7246 May, [facility] [address] [id number] [place] [address]- 3833 May, [facility] [address] [id number] [place] [address]- 7852 May, [facility] [address] [id number] [place] [address]- 3095 May, [facility] [address] [id number] [place] [address]- 2898 Apr, [facility] [address] [id number] [place] [address]- 7983 Apr, [facility] [address] [id number] [place] [address]- 4387 Apr, [facility] [address] [id number] [place] [address]- 1961 Apr, [facility] [address] [id number] [place] [address]- 2049 Apr, [facility] [address] [id number] [place] [address]- 6175 Mar, [facility] [address] [id number] [place] [address]- 5104 Mar, [facility] [address] [id number] [place] [address]- 5127 Mar, [facility] [address] [id number] [place] [address]- 8550 February, [facility] [address] [id number] [place] [address]- 3031 February, [facility] [address] [id number] [place] [address] February, [facility] [address] [id number] [place] [address]- 1996 February, [facility] [address] [id number] [place] [address]- 4522 February, [facility] [address] [id number] [place] [address]- 7956 February, [facility] [address] [id number] [place] [address]- 4912 February, [facility] [address] [id number] [place] [address]- 1956 February, [facility] [address] [id number] [place] [address]- 3893 February, [facility] [address] [id number] [place] [address]- 7263 Jan, [facility] [address] [id number] [place] [address]- 0757 Jan, [facility] [address] [id number] [place] [address]- 5561 Jan, [facility] [address] [id number] [place] [address]- 7744 Jan, [facility] [address] [id number] [place] [address]- 8730 Jan, [facility] [address] [id number] [place] [address]- 5481 Dec, [facility] [address] [id number] [place] [address]- 8797 Dec, [facility] [address] [id number] [address]- 8245 Dec, [facility] [address] [id number] [place] [address]- 4025 Dec, [facility] [address] [id number] [place] [address]- 7635 Dec, [facility] [address] [id number] [place] [address]29 Nov, [facility] [address] [id number] [place] [address]- 4592 Nov, [facility] [address] [id number] [place] [address]- 5656 Nov, [facility] [address] [id number] [place] [address]- 7366 Nov, [facility] [address] [id number] [place] [address]- 2096 Oct, [facility] [address] [id number] [place] [address]- 4150 Oct, [facility] [address] [id number] [place] [address]- 6074 Oct, [facility] [address] [id number] [place] [address]- 5865 Oct, [facility] [address] [id number] [place] [address]- 1679 Oct, [facility] [address] [id number] [place] [address]- 6704 Oct, [facility] [address] [id number] [place] [address]- 7590 Oct, [facility] [address] [id number] [place] [address]- 8804 Oct, [facility] [address] [id number] [place] [address]- 1699 Oct, [facility] [address] [id number] [place] [address]- 2271 Oct, [facility] [address] [id number] [place] [address]- 0551 Aug, [facility] [address] [id number] [place] [address]- 8980 Aug, [facility] [facility] [address] [id number] [place] [address]- 9345 Jul, [facility] [address] [id number] [place] [address]- 0031 Jul, [facility] [address] [id number] [place] [address]- 2149 Jul, [facility] [place] [facility] [address] [id number] [place] [address]- 4448 Jul, [facility] [place] [facility] [address] [id number] [place] [address]- 3764 Jul, [facility] [place] [facility] [address] [id number] [place] [address]- 8451 Jul, [facility] [place] [facility] [address] [id number] [place] [address]- 0507 Apr, [facility] [place] [facility] [address] [id number] [place] [address]- 1217 Dec, [facility] [place] [facility] [address] [id number] [place] [address]- 0522 Nov, [facility] [place] [facility] [address] [id number] [place] [address]- 0016 Nov, [facility] [place] [facility] [address] [id number] [place] [address]- 2672 Nov, [facility] [place] [facility] [address] [id number], [place] [address]- 8029 Oct, [facility] [place] [facility] [address] [id number], [place] [address]- 4465 Sep, [facility] [place] [facility] [address] [id number] [place] [address]- 8383 Sep, [facility] [place] [facility] [address] [id number] [place] [address]- 1488 Sep, [facility] [place] [facility] [address] [id number] [place] [address]- 1647 Sep, [facility] [place] [facility] [address] [id number] [place] [address]- 5848 13 Aug, 2012 [facility] [place] [facility] [address] [id number] [place] [address]- 6174 13 Aug, 2012 [facility] [place] [facility] [address] [id number] [place] [address]- 9736 Jul, [facility] [place] [facility] [address] [id number] [place] [address]- 0178 Jul, [facility] [place] [facility] [address] [id number] [place] [address]- 9370 28 Jun, 2012 [facility] [place] [facility] [address] [id number] [place] [address]- 4711 26 Jun, 2012 [facility] [place] [facility] [address] [id number] [place] [address]- 9250 24 Jun, 2012 [facility] [place] [facility] [address] [id number] [place] [address]- 3283 24 Jun, 2012 [facility] [place] [facility] [address] [id number] [place] [address]- 4701 Jun, [facility] [place] [facility] [address] [id number] [place] [address]- 7547 Apr, [facility] [place] [facility] [address] [id number] [place] [address]- 3999 Apr, [facility] [place] [facility] [address] [id number] [place] [address]- 3208 Apr, [facility] [place] [facility] [address] [id number] [place] [address]- 3706 Mar, [facility] [place] [facility] [address] [id number] [place] [address]- 2961 Mar, [facility] [place] [facility] [address] [id number] [place] 5501 Mar, [facility] [place] [facility] [address] [id number] [place] 9775 February, [facility] [place] [facility] [address] [id number] [place] [address]- 0371 Jan, [facility] [place] [facility] [address] [id number] [place] [address]- 7773 Dec, [facility] [place] [facility] [address] [id number] [place] [address]- 7632 Dec, [facility] [place] [facility] [address] [id number] [place] [address]- 3183 Dec, [facility] [place] [facility] [address] [id number] [place] [address]- 8113 Dec, [facility] [place] [facility] [address] [id number] [place] [address]- 5672 Dec, [facility] [address] [id number] [place] [address]- 8709 14 Nov, 2011 [facility] [place] [facility] [address] [id number] [place] [address]- 2140 Nov, [facility] [place] [facility] [address] [id number] [place] [address]- 5961 Oct, [facility] [address] [id number] [place] [address]- 8607 Oct, [facility] [facility] [address] [id number] [place] [address]- 4772 Oct, [facility] [place] [facility] [address] [id number] [place] [address]- 9826 Sep, [facility] [place] [facility] [address] [id number] [place] [address]- 5949 Aug, [facility] [place] [facility] [address] [id number] [place] [address]- 1096 Aug, [facility] [place] [facility] [address] [id number] [place] [address]- 7190 28 Jul, 2011 [facility] [place] [facility] [address] [id number] [address]- 1118 24 Jul, 2011 [facility] [address] [id number] [place] [address]- 1156 19 Jul, 2011 [facility] [place] [facility] [address] [id number] [place] [address] 13 Jan, 2011 [facility] [place] [facility] [address] [id number] [place] [address] 29 Sep, 2010 [facility] [place] [facility] [address] [id number] [place] [address] 27 Sep, 2010 [facility] [place] [facility] [address] [id number] [place] [address] Sep, [facility] [place] [facility] [address] [id number] [place] [address] Sep, [facility] [place] [facility] [address] [id number] [place] [address] Sep, [facility] [place] [facility] [address] [id number] [place] [address] Aug, [facility] [place] [facility] [address] [id number] [place] [address] Aug, [facility] [place] [facility] [address] [id number] [place] [address] Aug, [facility] [place] [facility] [address] [id number], [place] [address] Jul, [facility] [place] [facility] [address] [id number], [place] [address] Jul, [facility] [place] [facility] [address] [id number] [place] [address] Jul, [facility] [place] [facility] [address] [id number] [place] [address] May, [facility] [place] [facility] [address] [id number] [place] [address] 13 Apr, 2010 [facility] [place] [facility] [address] [id number] [address] Dec, [facility] [address] [address] Sep, [facility] [address] [address] Sep, [facility] [address] [address] Aug, [facility] [address] [address] Aug, [facility] [id number] [place] [address] Jul, [facility] [address] [address] Mar, IMMUNIZATIONS Vaccine Route Administration Date Status TORADOL (IM) 60 MG/2ML (UP TO 15 MG) IM Intramuscular Oct 16, 2017 Administered SOCIAL HISTORY Never Assessed REASON FOR VISIT Pain management--Juan, left side of back and pain shooting down her left leg to toes PLAN OF CARE Activity Details Follow Up 6-8 weeks Reason:DM VITAL SIGNS Height 63 in 2017-10-16 Weight 215.6 lbs 2017-10-16 Temperature 97.7 degrees Fahrenheit 2017-10-16 Heart Rate 70 bpm 2017-10-16 Respiratory Rate 20 2017-10-16 BMI 38.19 kg/m2 2017-10-16 Blood pressure systolic 120 mmHg 2017-10-16 Blood pressure diastolic 68 mmHg 2017-10-16 MEDICATIONS Medication Instructions Dosage Frequency Start Date End Date Duration Status Glimepiride 2 MG Orally twice a day 1 tablet 12h 90 Active Cane 1 as directed 24h May, 99 days Active OneTouch Verio - In Vitro twice a day DX: E11.9 test blood sugar Jun, Active ProAir HFA 108 (90 Base) MCG/ACT Inhalation every 4 hrs prn 2 puffs as needed Jun, 30 days Active Hydrocodone-Acetaminophen 5-325 MG Orally four times a day as needed for pain. Must last 28 days. 1 tablet Sep, Active Clorazepate Dipotassium 15 MG Orally 3 times a day prn must last 28 days. 1 tablet 28 Active Amlodipine Besylate 5 mg Orally Once a day 1 tablet 24h 30 days Active Lyrica 150 MG Orally Three times a day 1 capsule 8h Active NovoLog Flexpen 100 UNIT/ML Subcutaneous before meals 3 times daily 30 units Active Imitrex 100 MG Orally Once a day prn 1 tablet by Oral route 1 time per day and repeat once more after 2 hours if headache recurs PRN May, Active Levemir Flexpen 100 UNIT/ML Subcutaneous twice a day 23 units 12h Active Valacyclovir HCl 1 GM Orally every 24 hrs 1 tablet 30 Active Nystatin 795317 UNIT/GM Externally three times a day 1 application to affected area 8h Oct, Active Flonase 50 mcg/act Nasally Once a day 1 sprays by Nasal route 2 times per day in each nostril 24h 30 days Active Carafate 1 GM orally twice daily 1 tablet Active BD Pen Needle Ultrafine 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 Active Metoprolol Tartrate 25 MG Orally Twice a day 1 tablet with food 12h Active Azithromycin 250 MG Orally Once a day 2 tablets on the first day, then 1 tablet daily for 4 days 24h 5 day(s) Active Symbicort 80-4.5 MCG/ACT Inhalation Twice a day 2 puffs 12h 05 Jul, 2016 Active Promethazine HCl 25 MG Orally Once a day 1 tablet as needed 24h 30 Active OneTouch Lancets - as directed Jun, Active Fenofibrate 145 MG Orally Once a day 1 tablet 24h 90 Active Lidocaine 5 % Externally Three times a day 1 application to affected area as needed 8h Active Nabumetone 500 mg Orally Twice a day 1 tablet 12h 90 Active Robaxin 500 MG Orally 3 times a day 1 tablet 8h 28 Active Qalywbpqsk-DKCY-Zjsjwjam 50-325-40 MG Orally every 6 hrs for severe headache 1 tablet as needed Jun, Active MS Contin 15 MG Orally every 12 hrs as needed must last 28 days 1 tablet Sep, Active RESULTS Name Result Date Reference Range A1C (IN HOUSE) 2017-10-16 A1C IN HOUSE 8.0 4.3 - 5.6 % Previous A1c 6.9 Lot [id number] Exp date 05/2019 PROCEDURES Procedure Date Ordered Result Body Site GLYCATED HEMOGLOBIN TEST Oct 16, 2017 TORADOL (IM) 60 MG/2ML (UP TO 15 MG) Oct 16, 2017 THER/PROPH/DIAG INJ, SC/IM Oct 16, 2017 INSTRUCTIONS MEDICATIONS ADMINISTERED No Known Medications [...]
--- OUTSIDE RECORDS SUMMARY | 2018-10-08 20:37 | XMS REPORT ---
Author Author JENNY WOLF [facility] Address [address] [place] [address] Care Team Providers Care Financial Cost Analyst Name Role Phone JENNY WOLF Unavailable PROBLEMS Type Condition ICD9-CM Code [id number] Code Onset Dates Condition Status SNOMED Code Problem Hypersomnia G47.10 Active 26126357 Problem Hand pain, left M79.642 Active 65396572 Problem Tobacco abuse Z72.0 Active 89401757 Problem Chronic migraine G43.709 Active 91453843 Problem Asthma J45.909 Active 295174227 Problem Calculus of right kidney N20.0 Active 51538712 Problem Spinal stenosis, lumbar region M48.06 Active 10205149 Problem Hand pain, right M79.641 Active 11440335 Problem Heart palpitations R00.2 Active 22010099 Problem Mixed hyperlipidemia E78.2 Active 841088758 Problem Edema of both feet R60.0 Active 725421075 Problem Bulging lumbar disc M51.26 Active 402451718 Problem Radiculopathy of lumbar region M54.16 Active 570221561 Problem Anxiety F41.9 Active 23630532 Problem Essential hypertension I10 Active 92508210 Problem HSV (herpes simplex virus) infection B00.9 Active 07098738 Problem Chronic pain G89.29 Active 22427722 Problem Type 2 diabetes mellitus without complication E11.9 Active 43707329 Problem Snoring R06.83 Active 40336750 Problem Gastroesophageal reflux disease without esophagitis K21.9 Active 090271385 Problem Daytime hypersomnia G47.19 Active [id number] ALLERGIES No Information SOCIAL HISTORY Never Assessed PLAN OF CARE VITAL SIGNS MEDICATIONS Medication Instructions Dosage Frequency Start Date End Date Duration Status Clorazepate Dipotassium 15 MG Orally 3 times a day prn must last 28 days. 1 tablet Active MS Contin 15 MG Orally every 12 hrs as needed must last 28 days 1 tablet February, Active Hydrocodone-Acetaminophen 5-325 MG Orally four times a day as needed for pain. Must last 28 days. 1 tablet February, Active RESULTS No Results [...]
--- OUTSIDE RECORDS SUMMARY | 2018-10-08 20:38 | XMS REPORT ---
Author Author DOAN CHEL Organization [facility] Address [address] [place] [address] Care Team Providers Care Producer Assistant Name Role Phone CHEL DOAN Unavailable PROBLEMS Type Condition ICD9-CM Code [id number] Code Onset Dates Condition Status SNOMED Code Problem Hypersomnia G47.10 Active 02301032 Problem Hand pain, left M79.642 Active 52706336 Problem Tobacco abuse Z72.0 Active 46629194 Problem Chronic migraine G43.709 Active 71769742 Problem Asthma J45.909 Active 842906208 Problem Calculus of right kidney N20.0 Active 86755142 Problem Spinal stenosis, lumbar region M48.06 Active 55986135 Problem Hand pain, right M79.641 Active 87897013 Problem Heart palpitations R00.2 Active 21925341 Problem Mixed hyperlipidemia E78.2 Active 429153726 Problem Edema of both feet R60.0 Active 863292277 Problem Bulging lumbar disc M51.26 Active 766875220 Problem Radiculopathy of lumbar region M54.16 Active 900096240 Problem Anxiety F41.9 Active 60089136 Problem Essential hypertension I10 Active 45903569 Problem HSV (herpes simplex virus) infection B00.9 Active 50245817 Problem Chronic pain G89.29 Active 31339362 Problem Type 2 diabetes mellitus without complication E11.9 Active 32183318 Problem Snoring R06.83 Active 82213930 Problem Gastroesophageal reflux disease without esophagitis K21.9 Active 623321805 Problem Daytime hypersomnia G47.19 Active [id number] ALLERGIES No Information SOCIAL HISTORY Never Assessed [...]
--- OUTSIDE RECORDS SUMMARY | 2018-10-08 20:39 | XMS REPORT ---
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 919374093 Problem Edema of both feet R60.0 Active 789614495 Problem Tobacco abuse Z72.0 Active 78527823 Problem Chronic migraine G43.709 Active 77156132 Problem Mixed hyperlipidemia E78.2 Active 171814317 Problem Spinal stenosis, lumbar region M48.06 Active 11155893 Problem Anxiety F41.9 Active 61786597 Problem Radiculopathy of lumbar region M54.16 Active 986098323 Problem Bulging lumbar disc M51.26 Active 968103794 Problem Asthma J45.909 Active 736999894 Problem Essential hypertension I10 Active 61369484 ALLERGIES No Information ENCOUNTERS Encounter Location Date Diagnosis [facility] [id number] [address] Mar, [facility] [address], [place] [address] Mar, [facility] [id number] [place] [address] 13869- 0505 Mar, Chronic pain G89.29 [facility] [id number], [place] [address] February, Chronic pain G89.29 [facility] [facility] [id number] [place] [address] 09605- 5266 Jan, Chronic pain G89.29 [place] [facility] [address] 10648- 4394 Jan, 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 [place] [address] 60595- 1559 Jan, Encounter for Depo-Provera contraception Z30.42 [place] [address] 09727- 7509 Jan, [place] [address] 71987- 6290 Jan, Chronic pain G89.29 and Anxiety F41.9 [place] [address] 03093- 5424 Jan, [place] [address] 41722- 3270 Dec, [place] [address] 64744- 4485 Dec, Gastroesophageal reflux disease without esophagitis K21.9 and Anxiety F41.9 [place] [address] 03479- 2015 Dec, Essential hypertension I10 ; Mixed hyperlipidemia E78.2 ; Type 2 diabetes mellitus with diabetic neuropathy, unspecified E11.40 ; halfway 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 Z79.4 ; Chronic pain G89.29 ; HSV (herpes simplex virus) infection B00.9 ; Anxiety F41.9 and Gastroesophageal reflux disease without esophagitis K21.9 [place] [address] 94309- 5780 Dec, Chronic pain G89.29 and Chronic migraine G43.709 [place] [address] 69596- 0380 Nov, [facility] [facility] [id number] [place] [address] 10796- 8212 08 Nov, 2017 Essential hypertension I10 and Chronic pain G89.29 [facility] [facility] [id number] [place] [address] 21955- 2743 05 Nov, 2017 Chronic pain G89.29 ; Essential hypertension I10 and Type 2 diabetes mellitus without complication E11.9 [facility] [facility] [address] 53226- 6136 Oct, Chronic pain G89.29 [facility] [id number] [place] [address] 64891- 0233 Oct, [facility] [facility] [id number] [place] [address] 31282- 8448 Sep, Type 2 diabetes mellitus without complication E11.9 ; Essential hypertension I10 ; ferry terminal supervisor (current) use of insulin Z79.4 ; Chronic migraine G43.709 ; Chronic pain G89.29 and Acute non-recurrent maxillary sinusitis J01.00 [place] [id number] [place] [address] 52237- 9934 Sep, Encounter for Depo-Provera contraception Z30.42 [facility] [id number] [place] [address] 86969- 6311 Sep, Chronic pain G89.29 and Radiculopathy of lumbar region M54.16 [facility] [id number] [place] [address] 76309- 8233 Sep, [facility] [facility] [id number] [place] [address] 74043- 5766 Sep, [place] [address] 10109- 0200 Aug, Type 2 diabetes mellitus without complication E11.9 [facility] [id number] [place] [address] 26862- 8428 Aug, [place] [address] 22099- 2955 Aug, Radiculopathy of lumbar region M54.16 and Chronic pain G89.29 [facility] [address], [place] [address] 5216 Aug, Type 2 diabetes mellitus without complication E11.9 [facility] [id number], [place] [address] 7216 Aug, Type 2 diabetes mellitus without complication E11.9 [facility] [address] [facility] [id number] [address] 2987 Jul, Type 2 diabetes mellitus without complication E11.9 [facility] [address], [place] [address]- 5790 Jul, [facility] [id number], [place] [address] 9683 Jul, Chronic pain G89.29 [facility] [id number], [place] [address]- 5675 Jul, [facility] [id number], [place] [address]- 9083 Jul, [facility] [id number], [place] [address]- 7374 Jul, Type 2 diabetes mellitus without complication E11.9 [facility] [address], [place] [address]- 1288 Jul, [facility] [id number], [place] [address] 0128 Jul, Type 2 diabetes mellitus without complication E11.9 [facility] [address] [facility] [id number], [place] [address]- 0704 Jul, [facility] [address] [facility] [id number], [place] [address]- 6362 Jul, [facility] [address], [place] [address]- 7470 Jul, [facility] [id number] [place] [address] 05971- 7031 Jun, Type 2 diabetes mellitus without complication E11.9 [facility] [address] 82554- 2879 Jun, Chronic migraine G43.709 ; Type 2 diabetes mellitus without complication E11.9 ; Calculus of right kidney N20.0 ; Yeast dermatitis B37.2 and HSV (herpes simplex virus) infection B00.9 [place] [address] 08582- 7190 Jun, Type 2 diabetes mellitus without complication E11.9 [place] [address] 97837- 6979 Jun, [place] [address] 79908- 0877 Jun, Radiculopathy of lumbar region M54.16 and Chronic pain G89.29 [facility] [id number] [place] [address] 22460- 8385 Jun, Encounter for Depo-Provera contraception Z30.42 [place] [address] 67879- 0932 Jun, Type 2 diabetes mellitus without complication E11.9 [place] [id number] [place] [address] 28900- 4300 Jun, [facility] [id number] [place] [address] 72498 -6816 May, Acute nasopharyngitis (common cold) J00 [place] [address] 92900- 2045 May, Chronic pain G89.29 [place] [address] 85101- 1534 May, Headache following lumbar puncture G97.1 [place] [address] 13903- 2290 May, Radiculopathy of lumbar region M54.16 [place] [id number] [place] [address] 13775- 4135 Apr, [place] [id number] [place] [address] 15356- 4492 Apr, Type 2 diabetes mellitus without complication E11.9 ; Chronic pain G89.29 ; Essential hypertension I10 ; Radiculopathy of lumbar region M54.16 ; Spinal stenosis, lumbar region M48.06 ; Gastroesophageal reflux disease without esophagitis K21.9 ; HSV (herpes simplex virus) infection B00.9 ; Mixed hyperlipidemia E78.2 ; Anxiety F41.9 and Asthma J45.909 [place] [id number] [place] [address] 87575- 9497 Apr, Encounter for Depo-Provera contraception Z30.42 [place] [address] 68855- 3360 Apr, Chronic pain G89.29 and Anxiety F41.9 [place] [id number] [place] [address] 33395- 9118 Mar, [place] [address] 99225- 8694 Mar, [place] [id number] [place] [address] 61292- 3840 Mar, Mixed hyperlipidemia E78.2 [place] [id number] [place] [address] 41152- 8361 Mar, Type 2 diabetes mellitus without complication E11.9 ; Chronic pain G89.29 ; Essential hypertension I10 ; Radiculopathy of lumbar region M54.16 ; Spinal stenosis, lumbar region M48.06 ; Gastroesophageal reflux disease without esophagitis K21.9 ; HSV (herpes simplex virus) infection B00.9 ; Mixed hyperlipidemia E78.2 and Anxiety F41.9 [place] [address] 72229- 5195 Mar, [facility] [address], [place] [address]- 8528 Mar, [facility] [id number] [place] [address] 34024- 2007 Mar, [facility] [address] [place] [address] 06558- 7178 February, Chronic pain G89.29 [facility] [id number] [place] [address] 26716- 8926 February, [facility] [id number] [place] [address] 84198- 7744 Jan, Chronic pain G89.29 [facility] [id number] [place] [address] 75387- 2790 Jan, Type 2 diabetes mellitus without complication E11.9 [facility] [id number] [place] [address] 74095- 7817 Jan, [facility] [id number] [place] [address] 87920- 5541 Jan, [facility] [id number] [place] [address] 03296- 1475 Jan, [facility] [id number] [place] [address] 01398- 6563 Jan, Type 2 diabetes mellitus without complication [...] J01.00 and Encounter for Depo-Provera contraception Z30.42 [facility] [id number] [place] [address] 85044- 6627 Dec, Chronic pain G89.29 [place] [id number] [place] [address] 57202- 9486 Dec, Abnormal ankle brachial index (BERNARDINO) R68.89 [place] [id number] [place] [address] 82475- 3986 Dec, [id number] [place] [address] 36425- 6047 Dec, Routine gynecological examination Z01.419 ; Chronic [...] virus) infection B00.9 and Allergic rhinitis 477.9 [id number] [place] [address] 22507- 7660 28 Nov, 2016 Chronic pain G89.29 [id number] [place] [address] 91886- 5378 02 Nov, 2016 Chronic pain G89.29 ; [...] mucoid otitis media of both ears H65.113 [id number] [place] [address] 28919- 2204 Oct, [id number] [place] [address] 86074- 2269 Oct, Chronic pain G89.29 [id number] [place] [address] 12694- 9895 Oct, Chronic pain G89.29 [place] [id number] [place] [address] 28005- 0830 Sep, Chronic pain G89.29 ; Type 2 diabetes mellitus without complication E11.9 ; Essential hypertension I10 ; Radiculopathy of lumbar region M54.16 ; Spinal stenosis, lumbar region M48.06 ; Gastroesophageal reflux disease without esophagitis K21.9 ; Encounter for surveillance of injectable contraceptive Z30.42 ; Bilateral cold feet R20.9 ; Pain of left foot M79.672 and Pain in right foot M79.671 [place] [address] 01472- 8588 Sep, [place] [address] 92327- 4307 Aug, [place] [address] 29985- 1070 Aug, [place] [address] 00755- 1875 Aug, Chronic pain G89.29 ; Type 2 diabetes mellitus without complication E11.9 ; Essential hypertension I10 ; Rash and nonspecific skin eruption R21 and Upper respiratory infection, acute J06.9 [place] [address] 96099- 0505 08 Aug, 2016 [place] [address] 96488- 8312 Aug, [place] [address] 76248- 1841 Jul, [address] 17389- 4765 Jul, Dysuria R30.0 ; Encounter for Depo-Provera contraception Z30.42 ; Herpes simplex B00.9 ; Nausea & vomiting R11.2 and Asthma J45.[address] 21470- 7941 21 Jun, 2016 Dysuria R30.0 [facility] [id number] [place] [address] 15263- 1580 19 Jun, 2016 Dysuria R30.0 [facility] [id number] [place] [address] 35024- 5816 15 Jun, 2016 [facility] [id number] [place] [address] 86553- 1756 13 Jun, 2016 [facility] [id number] [place] [address] 45618- 1242 May, [facility] [id number] [place] [address] 90754- 6133 May, [facility] [id number] [place] [address] 38583- 8982 May, Chronic pain G89.29 ; Essential hypertension I10 ; Type 2 diabetes mellitus without complication E11.9 ; Edema of both feet R60.0 and Rash and nonspecific skin eruption R21 [facility] [id number] [place] [address] 43889- 7270 Apr, [facility] [id number] [place] [address] 54551- 5157 Mar, Carpal tunnel syndrome, left upper limb G56.02 and Carpal tunnel syndrome, right upper limb G56.01 [facility] [id number] [place] [address] 77491- 5752 Mar, [facility] [id number] [place] [address] 91880- 7678 Mar, Encounter for Depo-Provera contraception Z30.42 [facility] [id number] [place] [address] 98324- 4135 February, [facility] [id number] [place] [address] 20658- 9241 February, [facility] [address] 35402- 9898 February, Chronic pain G89.29 ; Essential hypertension I10 ; Type 2 diabetes mellitus without complication E11.9 ; HSV (herpes simplex virus) infection B00.9 ; Anxiety F41.9 ; Hypersomnia G47.10 ; Tobacco abuse Z72.0 ; Hand pain, left M79.642 ; Hand pain, right M79.641 ; Left foot pain M79.672 and Heart palpitations R00.2 [place] [address] 84200- 2177 Jan, [place] [address] 48197- 5594 Jan, [place] [address] 32512- 7244 Jan, [place] [address] 75098- 7844 Jan, [place] [address] 94279- 0310 Jan, Upper respiratory infection J06.9 and Type 2 diabetes mellitus without complication E11.9 [place] [address] 21110- 2086 Dec, [place] [address] 00161- 4344 Dec, Chronic pain G89.29 ; Essential hypertension I10 ; Type 2 diabetes mellitus without complication E11.9 ; HSV (herpes simplex virus) infection B00.9 ; Anxiety F41.9 ; Upper respiratory infection J06.9 ; Hypersomnia G47.10 and Tobacco abuse Z72.0 [place] [address] 95201- 9435 Dec, Encounter for Depo-Provera contraception Z30.42 [place] [address] 16351- 8355 02 Dec, 2015 [place] [address] 74995- 1428 Dec, Chronic pain G89.29 ; Sinusitis J32.9 ; Snoring R06.83 and Daytime hypersomnia G47.19 [place] [address] 04650- 4286 Nov, HSV (herpes simplex virus) infection B00.9 ; Encounter for Papanicolaou smear for cervical cancer screening Z12.4 ; Screening for STD sexually transmitted disease Z11.3 and Bartholin's gland cyst N75.0 [place] [address] 57806- 8886 Nov, [place] [address] 54899- 0679 Nov, [place] [address] 28443- 1726 Nov, Essential hypertension I10 ; Type 2 diabetes mellitus without complication E11.9 ; HSV (herpes simplex virus) infection B00.9 ; Spinal stenosis, lumbar region M48.06 and Vaginal yeast infection B37.3 [place] [address] 91701- 1856 Nov, [place] [address] 34723- 8701 Nov, [place] [address] 73778- 1586 Oct, [place] [address] 68249- 3237 Oct, HSV (herpes simplex virus) infection B00.9 ; Yeast infection B37.9 ; Change in bowel habit R19.4 ; Nausea & vomiting R11.2 and Gastroesophageal reflux disease without esophagitis K21.9 [place] [id number] [place] [address] 36820- 0632 Oct, [place] [address] 31693- 3391 Oct, Type 2 diabetes mellitus without complication E11.9 ; Essential hypertension I10 and Acute maxillary sinusitis, recurrence not specified J01.[address] 06625- 2755 Oct, [place] [address] 57239- 6199 Oct, [address] 56741- 2088 Oct, Exposure to head lice Z20.7 ; Blood glucose abnormal R73.09 ; Boil of buttock L02.32 and Type 2 diabetes mellitus without complication E11.[address] 24324- 6493 Oct, [address] 40664- 7237 Sep, [address] 22734- 5426 Sep, [address] 94902- 6643 Aug, Encounter for Depo-Provera contraception Z30.[address] 63632- 5171 Aug, Anxiety F41.9 ; Spinal stenosis, lumbar region M48.06 ; Radiculopathy of lumbar region M54.16 ; Asthma J45.909 ; GERD (gastroesophageal reflux disease) K21.9 ; Essential hypertension I10 and Long-term use of high- risk medication Z79.[address] 13690- 1143 Jul, [address] 12516- 1995 Jun, Hemorrhoid 455.[address] 04998- 9106 Jun, [place] [address] 85322- 4064 Jun, Anxiety 300.00 ; Asthma 493.90 ; Hyperhidrosis 705.21 ; Chest discomfort 786.59 and Upper respiratory infection 465.[address] 02742- 3949 May, Encounter for Depo-Provera contraception V25.[address] 76422- 0033 May, [address] 23942- 3098 May, [address] 74958- 7989 May, Spinal stenosis of lumbar region with radiculopathy 724.02 ; Bulging of intervertebral disc between L4 and L5 722.10 ; GERD ( gastroesophageal reflux disease) 530.81 ; Chronic pain 338.29 ; Declining mobility 799.89 and Epigastric pain 789.[address] 58866- 3248 Apr, [address] 73770- 6784 Apr, Nausea 787.02 and Heart burn 787.[address] 96379- 5259 Mar, Lumbago 724.2 ; Vitamin D deficiency 268.9 ; Anxiety 300.00 ; Allergic rhinitis 477.9 and Contraceptive surveillance V25.[address] 25129- 3207 February, 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 ; Chronic pain 338.29 and Vaginal discharge 623.[address] 21283- 8018 February, [address] [id number] [place] [address]- 3528 February, [facility] [place] [facility] [address] [id number] [place] [address]- 2172 14 Jan, 2015 [facility] [place] [facility] [address] [id number] [place] [address]- 0898 Jan, [facility] [place] [facility] [address] [id number] [place] [address]- 6179 Dec, [facility] [place] [facility] [address] [id number] [place] [address]- 7269 Dec, [facility] [place] [facility] [address] [id number] [place] [address]- 4603 Dec, [facility] [place] [facility] [address] [id number] [place] [address]- 4755 Dec, [facility] [place] [facility] [address] [id number] [place] [address]- 6341 18 Dec, 2014 [facility] [place] [facility] [address] [id number] [place] [address]- 8030 18 Dec, 2014 [facility] [place] [facility] [address] [id number] [place] [address]- 7099 Dec, [facility] [place] [facility] [address] [id number] [place] [address]- 7135 Dec, [facility] [place] [facility] [address] [id number] [place] [address]- 3407 Dec, [facility] [place] [facility] [address] [id number] [place] [address]- 1484 Dec, [facility] [place] [facility] [address] [id number] [place] [address]- 5989 Dec, [facility] [place] [facility] [address] [id number] [place] 6052 Dec, [facility] [place] [facility] [address] [id number] [place] [address]- 9426 27 Nov, 2014 [facility] [place] [facility] [address] [id number] [place] [address]- 1463 27 Nov, 2014 [facility] [place] [facility] [address] [facility] [id number] [place] [address]- 0396 24 Nov, 2014 [facility] [place] [facility] [address] [facility] [facility] [id number] [place] [address]- 1476 24 Nov, 2014 [facility] [place] [facility] [address] [facility] [facility] [id number] [place] [address]- 3442 23 Nov, 2014 [facility] [place] [facility] [address] [facility] [facility] [id number] [place] [address]- 5662 23 Nov, 2014 [facility] [place] [facility] [address] [facility] [facility] [id number] [place] [address]- 7086 16 Nov, 2014 [facility] [place] [facility] [address] [facility] [facility] [id number] [place] [address]- 2729 16 Nov, 2014 [facility] [place] [facility] [address] [facility] [facility] [id number] [place] [address]- 5618 13 Nov, 2014 [facility] [place] [facility] [address] [facility] [facility] [id number] [place] [address]- 9345 13 Nov, 2014 [facility] [place] [facility] [address] [facility] [facility] [id number] [place] [address]- 4213 13 Nov, 2014 [facility] [place] [facility] [address] [facility] [facility] [id number] [place] [address]- 2546 13 Nov, 2014 [facility] [place] [facility] [address] [facility] [facility] [id number] [place] [address]- 2542 13 Nov, 2014 [facility] [place] [facility] [address] [facility] [facility] [id number] [place] [address]- 5645 13 Nov, 2014 [facility] [place] [facility] [address] [facility] [address] [facility] [id number] [place] [address]- 2545 13 Nov, 2014 [facility] [place] [facility] [address] [facility] [address] [facility] [id number] [place] [address]- 6676 13 Nov, 2014 [facility] [place] [facility] [address] [id number] [place] [address]- 5591 Nov, 2014 [facility] [place] [facility] [address] [id number] [place] [address]- 4306 Nov, 2014 [facility] [place] [facility] [address] [id number] [place] [address]- 5383 Nov, 2014 [facility] [place] [facility] [address] [id number] [place] [address] Nov, 2014 [facility] [place] [facility] [address] [id number] [place] [address] Nov, 2014 [facility] [place] [facility] [address] [id number] [place] [address] Nov, 2014 [facility] [place] [facility] [address] [id number] [place] [address] Nov, [facility] [place] [facility] [address] [id number] [place] [address] Oct, [facility] [place] [facility] [address] [id number] [place] [address] Oct, [facility] [place] [facility] [address] [facility] [id number] [place] [address] Oct, [facility] [place] [facility] [address] [id number] [place] [address] Oct, [facility] [place] [facility] [address] [id number] [place] [address] Oct, [facility] [place] [facility] [address] [id number] [place] [address] Oct, [facility] [place] [facility] [address] [facility] [facility] [id number] [place] [address] Oct, [facility] [place] [facility] [address] [facility] [facility] [id number] [place] [address] Oct, [facility] [place] [facility] [address] [id number] [place] [address] Oct, [facility] [address] [id number] [place] [address] Oct, [facility] [address] [id number] [place] [address] Oct, [facility] [address] [id number] [place] [address] Oct, [facility] [address] [id number] [place] [address] Oct, [facility] [address] [id number] [place] [address] Oct, [facility] [address] [id number] [place] [address] 94[address] Oct, [facility] [address] [id number] [place] [address] 63[address] Oct, [facility] [address] [id number] [place] [address] 0684 Oct, [facility] [address] [id number] [place] [address] 5[address] Oct, [facility] [address] [id number] [place] [address] 9357 Oct, [facility] [address] [id number] [place] [address] 9202 Oct, [facility] [address] [id number] [place] [address]160 Oct, [facility] [place] [facility] [address] [id number] [place] [address] 1553 Sep, [facility] [place] [facility] [address] [id number] [place] [id number] [address] Sep, [facility] [address] [id number] [place] [address]- 9984 Sep, [facility] [place] [facility] [address] [id number] [place] [address]- 6695 18 Sep, 2014 [facility] [place] [facility] [address] [id number] [place] [address]- 5360 17 Sep, 2014 [facility] [place] [facility] [address] [id number] [place] [address]- 8811 17 Sep, 2014 [facility] [place] [facility] [address] [id number] [place] [address]- 1143 15 Sep, 2014 [facility] [place] [facility] [address] [id number] [place] [address]- 8408 15 Sep, 2014 [facility] [place] [facility] [address] [id number] [place] [address]- 1853 12 Sep, 2014 [facility] [place] [facility] [address] [id number] [place] [address]- 9197 12 Sep, 2014 [facility] [place] [facility] [address] [id number] [place] [address]- 2220 11 Sep, 2014 [facility] [place] [facility] [address] [id number] [place] [address]- 5552 11 Sep, 2014 [facility] [place] [facility] [address] [id number] [place] [address]- 3370 11 Sep, 2014 [facility] [place] [facility] [address] [id number] [place] [address]- 5757 11 Sep, 2014 [facility] [place] [facility] [address] [id number] [place] [address]- 0507 11 Sep, 2014 [facility] [place] [facility] [address] [id number] [place] [address]- 6587 11 Sep, 2014 [facility] [place] [facility] [address] [id number] [place] [address]- 4094 10 Sep, 2014 [facility] [place] [facility] [address] [id number] [place] [address]- 5536 10 Sep, 2014 [facility] [place] [facility] [address] [id number], [place] [address] Sep, [facility] [place] [facility] [address] [id number] [place] [address]- 8316 Sep, [facility] [place] [facility] [address] [id number] [place] [address]- 2961 Aug, [facility] [place] [facility] [address] [id number] [place] [address]- 4626 Aug, [facility] [place] [facility] [address] [id number] [place] [address]- 7095 Aug, [facility] [place] [facility] [address] [id number] [place] [address]- 5555 Aug, [facility] [place] [facility] [address] [id number] [place] [address]- 5501 Aug, [facility] [place] [facility] [address] [id number] [place] [address]- 0843 Aug, [facility] [place] [facility] [address] [id number] [place] [address]- 0703 Aug, [facility] [place] [facility] [address] [id number] [place] [address]- 8925 Aug, [facility] [place] [facility] [address] [id number] [place] [address]- 1165 Aug, [facility] [place] [facility] [address] [id number], [place] [address]- 7187 Jul, [facility] [place] [facility] [address] [id number], [place] [address]- 0669 Jul, [facility] [place] [facility] [address] [id number] [place] [address]- 0917 Jul, [facility] [place] [facility] [address] [id number] [place] [address]- 7713 Jul, [facility] [place] [facility] [address] [id number] [place] [address]- 1809 16 Jul, 2014 [facility] [place] [facility] [address] [id number] [place] [address]- 5676 16 Jul, 2013 [facility] [place] [facility] [address] [id number] [place] [address]- 2014 Jul, [facility] [place] [facility] [address] [id number] [place] [address]- 0806 13 Jul, 2013 [facility] [place] [facility] [address] [id number] [place] [address]- 2936 10 Jul, 2013 [facility] [place] [facility] [address] [id number] [place] [address]- 2239 10 Jul, 2013 [facility] [place] [facility] [address] [id number] [place] [address]- 7696 10 Jul, 2013 [facility] [place] [facility] [address] [id number] [place] [address]- 0093 10 Jul, 2013 [facility] [place] [facility] [address] [id number] [place] [address]- 1177 07 Jul, 2013 [facility] [place] [facility] [address] [id number] [place] [address]- 1200 07 Jul, 2014 [facility] [place] [facility] [address] [id number] [place] [address]- 3113 30 Jun, 2013 [facility] [place] [facility] [address] [id number] [place] [address]- 4735 30 Sep, 2013 [facility] [place] [facility] [address] [id number] [place] [address]- 2547 25 Sep, 2013 [facility] [place] [facility] [address] [id number] [place] [address]- 2546 25 Sep, 2013 [facility] [place] [facility] [address] [id number] [place] [address] 2546 25 Jun, 2013 [facility] [place] [facility] [address] [id number] [place] [address]- 2546 25 Jun, 2013 [facility] [place] [facility] [address] [id number] [place] [address]- 2549 24 Sep, 2013 [facility] [place] [facility] [address] [id number] [place] [address]- 9900 24 Sep, 2013 [facility] [place] [facility] [address] [id number] [place] [address]- 7364 22 Sep, 2013 [facility] [place] [facility] [address] [id number] [place] [address]- 3650 22 Sep, 2013 [facility] [place] [facility] [address] [id number] [place] [address]- 2236 17 Sep, 2013 [facility] [place] [facility] [address] [id number] [place] [address]- 3387 17 Sep, 2013 [facility] [place] [facility] [address] [id number] [place] [address]- 1307 16 Jun, 2013 [facility] [place] [facility] [address] [id number] [place] [address]- 8406 16 Jun, 2013 [facility] [place] [facility] [address] [id number] [place] [address]- 5895 15 Jun, 2013 [facility] [place] [facility] [address] [id number] [place] [address]- 7028 15 Jun, 2013 [facility] [place] [facility] [address] [id number] [place] [address]- 5581 12 Jun, 2013 [facility] [place] [facility] [address] [id number] [place] [address]- 4377 12 Jun, 2013 [facility] [place] [facility] [address] [id number], [place] [address]- 5176 11 Jun, 2013 [facility] [place] [facility] [address] [id number] [place] [address] 2546 11 Sep, 2013 [facility] [place] [facility] [address] [id number] [place] [address]- 9860 11 Sep, 2013 [facility] [place] [facility] [address] [id number] [place] [address]- 5897 11 Sep, 2013 [facility] [place] [facility] [address] [id number] [place] [address]- 7312 Jun, 2013 [facility] [place] [facility] [address] [id number] [place] [address]- 6710 Jun, [facility] [place] [facility] [address] [id number] [place] [address]- 4143 Jun, [facility] [place] [facility] [address] [id number] [place] [address]- 7857 Jun, [facility] [place] [facility] [address] [id number] [place] [address]- 6504 May, [facility] [place] [facility] [address] [id number] [place] [address]- 5139 May, [facility] [place] [facility] [address] [id number] [place] [address]- 9310 May, [facility] [place] [facility] [address] [id number] [place] [address]- 0416 May, [facility] [place] [facility] [address] [id number] [place] [address]- 2249 May, [facility] [place] [facility] [address] [id number] [place] [address]- 7807 May, [facility] [place] [facility] [address] [id number] [place] [address]- 0885 May, [facility] [place] [facility] [address] [id number] [place] [address]- 9832 May, [facility] [place] [facility] [address] [id number] [place] [address]- 2718 May, [facility] [place] [facility] [address] [id number] [place] [address]- 9204 May, [facility] [place] [facility] [address] [id number] [place] [address]- 5289 May, [facility] [place] [facility] [address] [id number] [place] [address]- 7099 May, [facility] [place] [facility] [address] [id number] [place] [address]- 0227 May, [facility] [place] [facility] [address] [id number] [place] [address]- 7839 Apr, [facility] [place] [facility] [address] [id number] [place] [address]- 0971 Apr, [facility] [place] [facility] [address] [id number] [place] [address]- 2867 Apr, [facility] [place] [facility] [address] [id number] [place] [address]- 4292 Apr, [facility] [place] [facility] [address] [id number] [place] [address]- 7126 Apr, [facility] [place] [facility] [address] [id number] [place] [address]- 9428 Mar, [facility] [place] [facility] [address] [id number] [place] [address]- 9668 Mar, [facility] [place] [facility] [address] [id number] [place] [address]- 6293 Mar, [facility] [place] [facility] [address] [id number] [place] [address]- 1820 February, [facility] [place] [facility] [address] [id number] [place] [address]- 3666 February, [facility] [place] [facility] [address] [id number] [place] [address]- 7775 February, [facility] [place] [facility] [address] [id number] [place] [address]- 3581 February, [facility] [place] [facility] [address] [id number] [id number] [address] February, [facility] [place] [facility] [address] [id number] [place] [address]- 6400 February, [facility] [place] [facility] [address] [id number] [place] [address]- 0032 February, [facility] [place] [facility] [address] [id number] [place] [address]- 9410 February, [facility] [place] [facility] [address] [id number] [place] [address] February, [facility] [place] [facility] [address] [id number] [place] [address]- 2248 Jan, [facility] [place] [facility] [address] [id number] [place] [address]- 9653 Jan, [facility] [place] [facility] [address] [id number] [place] [address]- 3988 Jan, [facility] [place] [facility] [address] [id number] [place] [address]- 3000 Jan, [facility] [place] [facility] [address] [id number] [place] [address]- 3832 Jan, [facility] [place] [facility] [address] [id number] [place] [address]- 3225 Dec, [facility] [place] [facility] [address] [id number] [place] [address]- 3114 Dec, [facility] [place] [facility] [address] [id number] [place] [address]- 1740 Dec, [facility] [place] [facility] [address] [id number] [place] [address]- 8199 Dec, [facility] [place] [facility] [address] [id number] [place] [address]- 1123 Dec, [facility] [place] [facility] [address] [id number] [place] [address]- 4819 Nov, [facility] [place] [facility] [address] [id number] [place] [address]- 1907 Nov, [facility] [place] [facility] [address] [id number] [place] [address]- 7099 Nov, [facility] [place] [facility] [address] [id number] [place] [address]- 9092 Nov, [facility] [address] [id number] [place] [address]- 9269 Oct, [facility] [place] [facility] [address] [id number] [place] [address]- 9280 Oct, [facility] [place] [facility] [address] [id number] [place] [address]- 0814 Oct, [facility] [place] [facility] [address] [id number] [place] [address]- 9678 Oct, [facility] [place] [facility] [address] [id number] [place] [address]- 3944 Oct, [facility] [place] [facility] [address] [id number] [place] [address]- 5451 Oct, [facility] [place] [facility] [address] [id number] [place] [address]- 6173 Oct, [facility] [place] [facility] [address] [id number] [place] [address]- 9019 Oct, [facility] [place] [facility] [address] [id number] [place] [address]- 6848 Oct, [facility] [place] [facility] [address] [id number] [place] [address]- 7729 Oct, [facility] [place] [facility] [address] [id number] [place] [address]- 3822 Aug, [facility] [place] [facility] [address] [id number] [place] [address]- 1732 Aug, [facility] [place] [facility] [address] [id number] [place] [address]- 6654 Jul, [facility] [place] [facility] [address] [id number] [place] [address]- 4636 Jul, [facility] [place] [facility] [address] [id number] [place] [address]- 4892 Jul, [facility] [address] [id number] [place] [address]- 6211 09 Jul, 2013 [facility] [place] [facility] [address] [id number] [place] [address]- 8664 Jul, [facility] [place] [facility] [address] [id number] [place] [address]- 4659 Jul, [facility] [place] [facility] [address] [id number] [place] [address]- 2397 Apr, [facility] [place] [facility] [address] [id number] [place] [address]- 4346 Dec, [facility] [place] [facility] [address] [id number] [place] [address]- 1996 Nov, [facility] [place] [facility] [address] [facility] [id number] [place] [address]- 0738 Nov, [facility] [place] [facility] [address] [id number] [place] [address]- 6720 Nov, [facility] [place] [facility] [address] [id number] [place] [address]- 7127 Oct, [facility] [place] [facility] [address] [facility] [address] [facility] [id number] [place] [address]- 2175 Sep, [facility] [place] [facility] [address] [id number], [place] [address]- 0841 Sep, [facility] [place] [facility] [address] [id number], [place] [address]- 7360 Sep, [facility] [place] [facility] [address] [id number] [place] [address]- 8688 Sep, [facility] [place] [facility] [address] [id number] [place] [address]- 5350 Aug, [facility] [place] [facility] [address] [facility] [address] [facility] [id number] [place] [address]- 6979 Aug, [facility] [place] [facility] [address] [id number] [place] [address]- 8981 12 Jul, 2012 [facility] [place] [facility] [address] [id number] [place] [address]- 4981 12 Jul, 2012 [facility] [place] [facility] [address] [id number] [place] [address]- 4846 28 Jun, 2012 [facility] [place] [facility] [address] [id number] [place] [address]- 6556 26 Jun, 2012 [facility] [place] [facility] [address] [id number] [place] [address] 2540 24 Jun, 2012 [facility] [place] [facility] [address] [id number] [place] [address]- 4954 24 Jun, 2012 [facility] [place] [facility] [address] [id number] [place] [address]- 9969 12 Jun, 2012 [facility] [place] [facility] [address] [id number] [place] [address]- 7085 31 Apr, 2012 [facility] [place] [facility] [address] [id number] [place] [address]- 9000 30 Apr, 2012 [facility] [place] [facility] [address] [id number] [place] [address]- 5765 Apr, [facility] [place] [facility] [address] [id number] [place] [address]- 2310 Mar, [facility] [place] [facility] [address] [id number] [place] [address]- 6875 Mar, [facility] [place] [facility] [address] [id number] [place] [address]- 3025 Mar, [facility] [place] [facility] [address] [id number] [place] [address]- 6302 February, [facility] [place] [facility] [address] [id number] [place] [address]- 7911 Jan, [facility] [place] [facility] [address] [id number] [place] [address]- 0242 Dec, [facility] [place] [facility] [address] [id number] [place] [address]- 5474 Dec, [facility] [place] [facility] [address] [id number] [place] [address]- 9483 Dec, [facility] [place] [facility] [address] [id number] [place] [address]- 4912 Dec, [facility] [place] [facility] [address] [id number] [place] [address]- 6296 Dec, [facility] [place] [facility] [address] [id number] [place] [address]- 1786 14 Nov, 2011 [facility] [place] [facility] [address] [id number] [place] [address]- 7586 Nov, [facility] [place] [facility] [address] [id number] [place] [address]- 1148 Oct, [facility] [place] [facility] [address] [id number] [place] [address]- 7729 Oct, [facility] [place] [facility] [address] [id number] [place] [address]- 0996 Oct, [facility] [address] [id number] [place] [address]- 0211 Sep, [facility] [place] [facility] [address] [id number], [place] [address]- 7151 Aug, [facility] [place] [facility] [address] [id number], [place] [address]- 4647 Aug, [facility] [place] [facility] [address] [id number] [place] [address]- 7937 Jul, [facility] [place] [facility] [address] [id number] [place] [address]- 3611 24 Jul, 2011 [facility] [place] [facility] [address] [id number], [place] [address]- 7704 Jul, [facility] [place] [facility] [address] [id number], [place] [address]- 1294 13 Jan, 2011 [facility] [address] [id number] [place] [address]- 9043 29 Sep, 2010 [facility] [place] [facility] [address] [id number] [place] [address] 27 Sep, 2010 [facility] [place] [facility] [address] [facility] [facility] [id number] [place] [address] 20 Sep, 2010 [facility] [place] [facility] [address] [id number] [place] [address] 20 Sep, 2010 [facility] [place] [facility] [address] [facility] [id number] [place] [address] 06 Sep, 2010 [facility] [place] [facility] [address] [facility] [id number] [place] [address] 16 Aug, 2010 [facility] [place] [facility] [address] [facility] [id number] [place] [address] 16 Aug, 2010 [facility] [place] [facility] [address] [facility] [id number] [place] [address] 08 Aug, 2010 [facility] [place] [facility] [address] [facility] [id number] [place] [address] Jul, [facility] [place] [facility] [address] [facility] [id number] [place] [address] Jul, [facility] [place] [facility] [address] [facility] [id number], [place] [address] 12 Jul, 2010 [facility] [place] [facility] [address] [facility] [id number], [place] [address] 11 May, 2010 [facility] [place] [facility] [address] [facility] [id number] [place] [address] 13 Apr, 2010 [facility] [place] [facility] [address] [facility] [id number] [place] [address] 18 Dec, 2009 [facility] [place] [facility] [address] [facility] [id number] [place] [address] 17 Sep, 2009 [facility] [place] [facility] [address] [facility] [id number] [place] [address] Sep, [facility] [address] [facility] [id number], [place] [address] Aug, [facility] [address] [id number], [place] [address] Aug, [facility] [address] [facility] [id number], [place] [address] Jul, [facility] [address] [facility] [id number], [place] [address] Mar, IMMUNIZATIONS No Known Immunizations SOCIAL HISTORY Never Assessed REASON FOR VISIT 1 mo f/u DM Ed PLAN OF CARE VITAL [...]
--- OUTSIDE RECORDS SUMMARY | 2018-10-08 20:41 | XMS REPORT ---
Author Author JENNY WOLF [facility] Address [address] [place] [address] Care Team Providers Care Service Counselor Name Role Phone JENNY WOLF Unavailable PROBLEMS Type Condition ICD9-CM Code YUB95-FW Code Onset Dates Condition Status SNOMED Code Problem Chronic pain G89.29 Active 20163781 Problem HSV (herpes simplex virus) infection B00.9 Active 88462316 Problem Gastroesophageal reflux disease without esophagitis K21.9 Active 029091006 Problem Type 2 diabetes mellitus with diabetic neuropathy, unspecified E11.40 Active 40970629 Problem packager hand 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 Z79.4 Active 995549317 Problem Edema of both feet R60.0 Active 113335509 Problem Tobacco abuse Z72.0 Active 40677313 Problem Chronic migraine G43.709 Active 80839241 Problem Mixed hyperlipidemia E78.2 Active 962221320 Problem Spinal stenosis, lumbar region M48.06 Active 45257000 Problem Anxiety F41.9 Active 93337644 Problem Radiculopathy of lumbar region M54.16 Active 285222019 Problem Bulging lumbar disc M51.26 Active 137591364 Problem Asthma J45.909 Active 891852044 Problem Essential hypertension I10 Active 36568970 ALLERGIES No Information ENCOUNTERS Encounter Location Date Diagnosis [facility] [id number] [address] February, [facility] [id number] [address] February, Chronic pain G89.29 [facility] [address] [address] Jan, Chronic pain G89.29 [facility] [id number] [address] 5[address] Jan, packager hand 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 Z79.4 [facility] [id number] [place] [address] 94454- 7880 Jan, Encounter for Depo-Provera contraception Z30.42 [facility] [id number] [place] [address] 79773- 9154 Jan, [facility] [address] 28377- 1863 Jan, Chronic pain G89.29 and Anxiety F41.9 [facility] [address] 10724- 5663 Jan, [facility] [address] 54646- 0634 Dec, [facility] [address] 87297- 0785 Dec, Gastroesophageal reflux disease without esophagitis K21.9 and Anxiety F41.9 [facility] [id number] [place] [address] 48857- 2367 Dec, Essential hypertension I10 ; Mixed hyperlipidemia E78.2 ; Type 2 diabetes mellitus with diabetic neuropathy, unspecified E11.40 ; long-term 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 Z79.4 ; Chronic pain G89.29 ; HSV (herpes simplex virus) infection B00.9 ; Anxiety F41.9 and Gastroesophageal reflux disease without esophagitis K21.9 [facility] [id number] [place] [address] 35525- 7659 Dec, Chronic pain G89.29 and Chronic migraine G43.709 [facility] [id number] [place] [address] 90098- 4693 Nov, [facility] [id number] [place] [address] 34586- 9674 Nov, Essential hypertension I10 and Chronic pain G89.29 [facility] [address] 57579- 9450 Nov, Chronic pain G89.29 ; Essential hypertension I10 and Type 2 diabetes mellitus without complication E11.9 [facility] [id number] [place] [address] 90198- 7830 Oct, Chronic pain G89.29 [facility] [id number] [place] [address] 09219- 5421 Oct, [facility] [facility] [address] 46360- 6234 Sep, Type 2 diabetes mellitus without complication E11.9 ; Essential hypertension I10 ; packager hand (current) use of insulin Z79.4 ; Chronic migraine G43.709 ; Chronic pain G89.29 and Acute non-recurrent maxillary sinusitis J01.00 [facility] [id number] [place] [address] 20729- 7739 Sep, Encounter for Depo-Provera contraception Z30.42 [facility] [id number] [place] [address] 49191- 9710 Sep, Chronic pain G89.29 and Radiculopathy of lumbar region M54.16 [facility] [id number] [place] [address] 21156- 2290 Sep, [facility] [id number] [place] [address] 41418- 8053 Sep, [facility] [id number] [place] [address] 73252- 5463 Aug, Type 2 diabetes mellitus without complication E11.9 [facility] [id number] [place] [address] 12838- 5099 Aug, [facility] [id number] [place] [address] 26231- 7558 Aug, Radiculopathy of lumbar region M54.16 and Chronic pain G89.29 [facility] [id number] [place] [address] 66251- 4106 Aug, Type 2 diabetes mellitus without complication E11.9 [facility] [address] [facility] [id number] [address] 7[address] Aug, Type 2 diabetes mellitus without complication E11.9 [facility] [id number] [place] [address] 18385- 7196 Jul, Type 2 diabetes mellitus without complication E11.9 [facility] [id number] [place] [address] 49848- 8846 Jul, [facility] [id number] [place] [address] 65099 2542 Jul, Chronic pain G89.29 [facility] [id number] [place] [address] 70523- 4426 Jul, [facility] [id number] [place] [address] 48997- 4283 Jul, [facility] [id number] [place] [address] 48058- 1182 Jul, Type 2 diabetes mellitus without complication E11.9 [facility] [address] [address]- 0181 Jul, [facility] [id number] [place] [address] 56282- 4149 Jul, Type 2 diabetes mellitus without complication E11.9 [facility] [address] [address]- 7056 Jul, [facility] [address] [address]- 2548 Jul, [facility] [id number] [place] [address] 95627- 5429 Jul, [facility] [id number] [place] [address] 34327- 5459 Jun, Type 2 diabetes mellitus without complication E11.9 [facility] [address] [address]- 9365 Jun, Chronic migraine G43.709 ; Type 2 diabetes mellitus without complication E11.9 ; Calculus of right kidney N20.0 ; Yeast dermatitis B37.2 and HSV (herpes simplex virus) infection B00.9 [facility] [id number] [place] [address] 97679- 5067 Jun, Type 2 diabetes mellitus without complication E11.9 [facility] [place] [address] 13659- 6358 Jun, [place] [address] 21749- 3893 Jun, Radiculopathy of lumbar region M54.16 and Chronic pain G89.29 [facility] [address] 60853- 1459 Jun, Encounter for Depo-Provera contraception Z30.42 [facility] [address] 62936- 0394 Jun, Type 2 diabetes mellitus without complication E11.9 [facility] [id number] [place] [address] 82339- 7942 Jun, [facility] [id number] [place] [address] 44373 -6862 May, Acute nasopharyngitis (common cold) J00 [facility] [id number] [place] [address] 86723- 9492 May, Chronic pain G89.29 [facility] [address] 75080- 6786 May, Headache following lumbar puncture G97.1 [place] [address] 54364- 9791 May, Radiculopathy of lumbar region M54.16 [place] [address] 84352- 1192 Apr, [place] [address] 98658- 6584 Apr, Type 2 diabetes mellitus without complication E11.9 ; Chronic pain G89.29 ; Essential hypertension I10 ; Radiculopathy of lumbar region M54.16 ; Spinal stenosis, lumbar region M48.06 ; Gastroesophageal reflux disease without esophagitis K21.9 ; HSV (herpes simplex virus) infection B00.9 ; Mixed hyperlipidemia E78.2 ; Anxiety F41.9 and Asthma J45.[address] 12432- 2144 Apr, Encounter for Depo-Provera contraception Z30.[address] 411245- 1011 Apr, Chronic pain G89.29 and Anxiety F41.[address] 52398- 1327 Mar, [address] 58589- 3437 Mar, [address] 39531- 7025 Mar, Mixed hyperlipidemia E78.[address] 80691- 2977 Mar, Type 2 diabetes mellitus without complication E11.9 ; Chronic pain G89.29 ; Essential hypertension I10 ; Radiculopathy of lumbar region M54.16 ; Spinal stenosis, lumbar region M48.06 ; Gastroesophageal reflux disease without esophagitis K21.9 ; HSV (herpes simplex virus) infection B00.9 ; Mixed hyperlipidemia E78.2 and Anxiety F41.[address] 32507- 6851 Mar, [address] 64821- 5114 Mar, [address] 10337- 6520 Mar, [facility] [address] [address]- 3168 February, Chronic pain G89.29 [facility] [id number] [place] [address] 71123- 7684 February, [facility] [id number] [place] [address] 46932- 1178 Jan, Chronic pain G89.29 [facility] [id number] [place] [address] 35998- 6586 Jan, Type 2 diabetes mellitus without complication E11.9 [facility] [id number] [place] [address] 67270- 6260 Jan, [facility] [id number] [place] [address] 62476- 1358 Jan, [facility] [id number] [place] [address] 46859- 1401 Jan, [facility] [id number] [place] [address] 42476- 9392 Jan, Type 2 diabetes mellitus without complication [...] J01.00 and Encounter for Depo-Provera contraception Z30.42 [facility] [address] [place] [address] 82447- 6991 Dec, Chronic pain G89.29 [facility] [id number] [place] [address] 74298- 1742 Dec, Abnormal ankle brachial index (BERNARDINO) R68.89 [facility] [id number] [place] [address] 10975- 8133 Dec, [place] [id number] [place] [address] 60657- 8287 Dec, Routine gynecological examination Z01.419 ; Chronic [...] virus) infection B00.9 and Allergic rhinitis 477.9 [place] [id number] [place] [address] 96856- 0595 Nov, Chronic pain G89.29 [facility] [address] [place] [address] 66408- 8235 02 Nov, 2016 Chronic pain G89.29 ; [...] mucoid otitis media of both ears H65.113 [place] [address] [place] [address] 80805- 7392 Oct, [facility] [facility] [address] [place] [address] 66681- 2256 Oct, Chronic pain G89.29 [facility] [id number] [place] [address] 74413- 5443 Oct, Chronic pain G89.29 [facility] [place] [address] [place] [address] 52211- 5962 Sep, Chronic pain G89.29 ; Type 2 diabetes mellitus without complication E11.9 ; Essential hypertension I10 ; Radiculopathy of lumbar region M54.16 ; Spinal stenosis, lumbar region M48.06 ; Gastroesophageal reflux disease without esophagitis K21.9 ; Encounter for surveillance of injectable contraceptive Z30.42 ; Bilateral cold feet R20.9 ; Pain of left foot M79.672 and Pain in right foot M79.671 [place] [id number] [place] [address] 35062- 5563 Sep, [place] [address] 87849- 8449 Aug, [place] [address] 40577- 1118 Aug, [place] [address] 54937- 3320 Aug, Chronic pain G89.29 ; Type 2 diabetes mellitus without complication E11.9 ; Essential hypertension I10 ; Rash and nonspecific skin eruption R21 and Upper respiratory infection, acute J06.9 [place] [address] 98471- 3446 Aug, [place] [address] 01404- 3421 Aug, [facility] [address] 58999- 6464 Jul, [place] [address] 87990- 6055 Jul, Dysuria R30.0 ; Encounter for Depo-Provera contraception Z30.42 ; Herpes simplex B00.9 ; Nausea & vomiting R11.2 and Asthma J45.909 [facility] [facility] [address] 84606- 7509 Jun, Dysuria R30.0 [facility] [address] 32729- 3494 Jun, Dysuria R30.0 [facility] [address] 56962- 9559 15 Jun, 2016 [facility] [address] [place] [address] 19453- 9802 Jun, [facility] [id number] [place] [address] 60893- 4733 May, [facility] [id number] [place] [address] 35876- 9181 May, [facility] [id number] [place] [address] 26175- 4484 May, Chronic pain G89.29 ; Essential hypertension I10 ; Type 2 diabetes mellitus without complication E11.9 ; Edema of both feet R60.0 and Rash and nonspecific skin eruption R21 [facility] [id number] [place] [address] 64984- 6681 Apr, [facility] [id number] [place] [address] 21209- 6573 Mar, Carpal tunnel syndrome, left upper limb G56.02 and Carpal tunnel syndrome, right upper limb G56.01 [facility] [id number] [place] [address] 21347- 4676 Mar, [facility] [id number] [place] [address] 72352- 3593 Mar, Encounter for Depo-Provera contraception Z30.42 [facility] [id number] [place] [address] 72401- 2479 February, [facility] [id number] [place] [address] 31372- 1802 February, [facility] [id number] [place] [address] 62885- 5808 February, Chronic pain G89.29 ; Essential hypertension I10 ; Type 2 diabetes mellitus without complication E11.9 ; HSV (herpes simplex virus) infection B00.9 ; Anxiety F41.9 ; Hypersomnia G47.10 ; Tobacco abuse Z72.0 ; Hand pain, left M79.642 ; Hand pain, right M79.641 ; Left foot pain M79.672 and Heart palpitations R00.[address] 85381- 4903 Jan, [facility] [address] 13137- 4899 Jan, [facility] [facility] [address] 99268- 7543 Jan, [facility] [address] 88192- 2884 Jan, [address] 01975- 8344 Jan, Upper respiratory infection J06.9 and Type 2 diabetes mellitus without complication E11.[address] 23406- 4356 Dec, [address] 65818- 2375 Dec, Chronic pain G89.29 ; Essential hypertension I10 ; Type 2 diabetes mellitus without complication E11.9 ; HSV (herpes simplex virus) infection B00.9 ; Anxiety F41.9 ; Upper respiratory infection J06.9 ; Hypersomnia G47.10 and Tobacco abuse Z72.0 [place] [id number] [place] [address] 93737- 7473 Dec, Encounter for Depo-Provera contraception Z30.42 [place] [id number] [place] [address] 08787- 6609 Dec, [address] 73580- 8521 Dec, Chronic pain G89.29 ; Sinusitis J32.9 ; Snoring R06.83 and Daytime hypersomnia G47.[address] 99414- 5727 Nov, HSV (herpes simplex virus) infection B00.9 ; Encounter for Papanicolaou smear for cervical cancer screening Z12.4 ; Screening for STD sexually transmitted disease Z11.3 and Bartholin's gland cyst N75.0 [facility] [id number] [place] [address] 20387- 3562 Nov, [place] [id number] [place] [address] 96736- 3355 Nov, [facility] [id number] [place] [address] 45608- 7785 Nov, Essential hypertension I10 ; Type 2 diabetes mellitus without complication E11.9 ; HSV (herpes simplex virus) infection B00.9 ; Spinal stenosis, lumbar region M48.06 and Vaginal yeast infection B37.3 [facility] [id number] [place] [address] 09281- 8366 Nov, [facility] [place] [id number] [place] [address] 39519- 1309 Nov, [facility] [place] [id number] [place] [address] 12101- 8990 Oct, [facility] [id number] [place] [address] 89816- 0040 Oct, HSV (herpes simplex virus) infection B00.9 ; Yeast infection B37.9 ; Change in bowel habit R19.4 ; Nausea & vomiting R11.2 and Gastroesophageal reflux disease without esophagitis K21.9 [facility] [place] [address] [place] [address] 86306- 3471 Oct, [facility] [id number] [place] [address] 24334- 7340 Oct, Type 2 diabetes mellitus without complication E11.9 ; Essential hypertension I10 and Acute maxillary sinusitis, recurrence not specified J01.00 [facility] [place] [id number] [place] [address] 39990- 5727 Oct, [facility] [id number] [place] [address] 44995- 4501 Oct, [address] 62965- 6348 Oct, Exposure to head lice Z20.7 ; Blood glucose abnormal R73.09 ; Boil of buttock L02.32 and Type 2 diabetes mellitus without complication E11.[address] 41402- 9586 Oct, [address] 79677- 1817 Sep, [address] 28712- 1341 Sep, [address] 58737- 4879 Aug, Encounter for Depo-Provera contraception Z30.[address] 55697- 6495 Aug, Anxiety F41.9 ; Spinal stenosis, lumbar region M48.06 ; Radiculopathy of lumbar region M54.16 ; Asthma J45.909 ; GERD (gastroesophageal reflux disease) K21.9 ; Essential hypertension I10 and Long-term use of high- risk medication Z79.[address] 12970- 2443 Jul, [address] 42475- 4536 Jun, Hemorrhoid 455.[address] 43926- 8688 Jun, [address] 58957- 1436 Jun, Anxiety 300.00 ; Asthma 493.90 ; Hyperhidrosis 705.21 ; Chest discomfort 786.59 and Upper respiratory infection 465.[id number] [place] [address] 75237- 2667 May, Encounter for Depo-Provera contraception V25.49 [place] [address] 11383- 1275 May, [place] [address] 59696- 4037 May, [place] [address] 63540- 7118 May, Spinal stenosis of lumbar region with radiculopathy 724.02 ; Bulging of intervertebral disc between L4 and L5 722.10 ; GERD ( gastroesophageal reflux disease) 530.81 ; Chronic pain 338.29 ; Declining mobility 799.89 and Epigastric pain 789.06 [place] [address] 98702- 7742 Apr, [address] 42495- 1689 Apr, Nausea 787.02 and Heart burn 787.[address] 96248- 0764 Mar, Lumbago 724.2 ; Vitamin D deficiency 268.9 ; Anxiety 300.00 ; Allergic rhinitis 477.9 and Contraceptive surveillance V25.[address] 67264- 3634 February, 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 ; Chronic pain 338.29 and Vaginal discharge 623.5 [place] [address] 72911- 8271 February, [address] 44583- 8743 February, [place] [address] 31730- 4154 Jan, [place] [address] [place] [id number] [address]- 5865 13 Jan, 2015 [facility] [place] [facility] [address] [id number] [place] [address]- 0721 26 Dec, 2014 [facility] [place] [facility] [address] [id number] [place] [address]- 9130 26 Dec, 2014 [facility] [place] [facility] [address] [id number] [place] [address]- 3466 Dec, [facility] [place] [facility] [address] [id number] [place] [address]- 7335 Dec, [facility] [place] [facility] [address] [id number] [place] [address]- 4318 Dec, [facility] [place] [facility] [address] [id number] [place] [address]- 6520 18 Dec, 2014 [facility] [place] [facility] [address] [id number] [place] [address]- 9584 Dec, [facility] [place] [facility] [address] [id number] [place] [address]- 8082 Dec, [facility] [place] [facility] [address] [id number] [place] [address]- 4161 Dec, [facility] [place] [facility] [address] [facility] [id number] [place] [address]- 4223 Dec, [facility] [place] [facility] [address] [id number] [place] [address]- 4758 Dec, [facility] [place] [facility] [address] [id number] [place] [address]- 5015 Dec, [facility] [place] [facility] [address] [id number] [place] [address]- 8963 Nov, [facility] [place] [facility] [address] [id number] [place] [address]- 6337 Nov, [facility] [place] [facility] [address] [id number] [place] [address]- 8138 24 Nov, 2014 [facility] [place] [facility] [address] [id number] [place] [address]- 5456 24 Nov, 2014 [facility] [place] [facility] [address] [id number] [place] [address]- 3696 23 Nov, 2014 [facility] [place] [facility] [address] [facility] [id number] [place] [address]- 7266 23 Nov, 2014 [facility] [place] [facility] [address] [facility] [id number] [place] [address]- 5016 16 Nov, 2014 [facility] [place] [facility] [address] [id number] [place] [address]- 2036 16 Nov, 2014 [facility] [place] [facility] [address] [facility] [id number] [place] [address]- 1923 13 Nov, 2014 [facility] [place] [facility] [address] [facility] [id number] [place] [address]- 9569 13 Nov, 2014 [facility] [place] [facility] [address] [facility] [id number] [place] [address]- 0235 13 Nov, 2014 [facility] [place] [facility] [address] [facility] [id number] [place] [address]- 0014 13 Nov, 2014 [facility] [place] [facility] [address] [facility] [id number] [place] [address] 13 Nov, 2014 [facility] [place] [facility] [address] [facility] [id number] [place] [address] 13 Nov, 2014 [facility] [place] [facility] [address] [facility] [id number] [place] [address] 13 Nov, 2014 [facility] [place] [facility] [address] [facility] [id number] [place] [address] 13 Nov, 2014 [facility] [place] [facility] [address] [facility] [id number] [place] [address] 10 Nov, 2014 [facility] [place] [facility] [address] [facility] [id number] [place] [address] 10 Nov, 2014 [facility] [place] [facility] [address] [id number] [place] [address] Nov, 2014 [facility] [place] [facility] [address] [id number] [place] [address] Nov, 2014 [facility] [place] [facility] [address] [id number] [place] [address] Nov, 2014 [facility] [place] [facility] [address] [id number] [place] [address] Nov, [facility] [place] [facility] [address] [id number] [place] [address] Nov, [facility] [place] [facility] [address] [id number] [place] [address] Oct, [facility] [place] [facility] [address] [id number] [place] [address] Oct, [facility] [place] [facility] [address] [id number] [place] [address] Oct, [facility] [place] [facility] [address] [id number] [place] [address] Oct, [facility] [place] [facility] [address] [id number] [place] [address] Oct, [facility] [place] [facility] [address] [id number] [address] Oct, [facility] [place] [facility] [address] [id number] [address] Oct, [facility] [place] [facility] [address] [id number] [place] [address] Oct, [facility] [place] [facility] [address] [id number] [place] [address] Oct, [facility] [place] [facility] [address] [id number] [place] [address] Oct, [facility] [place] [facility] [address] [id number] [address] Oct, [facility] [address] [id number] [place] [address] Oct, [facility] [place] [facility] [address] [id number] [place] [address] 1367 Oct, [facility] [place] [facility] [address] [id number] [place] [address] 4508 Oct, [facility] [place] [facility] [address] [id number] [place] [address] 2534 Oct, [facility] [place] [facility] [address] [id number] [place] [address] 9039 Oct, [facility] [place] [facility] [address] [id number] [place] [address] 0394 Oct, [facility] [address] [id number] [place] [address] 7749 Oct, [facility] [place] [facility] [address] [id number] [place] [address]- 8053 Oct, [facility] [place] [facility] [address] [id number] [place] [address] 8028 Oct, [facility] [place] [facility] [address] [facility] [id number] [place] [address] 3834 Oct, [facility] [place] [facility] [address] [id number] [place] [address] 6[address] Sep, [facility] [place] [facility] [address] [id number] [address] 29 Sep, 2014 [facility] [place] [facility] [address] [id number] [place] [address] 4707 Sep, [facility] [place] [facility] [address] [id number] [place] [address]- 4477 Sep, [facility] [place] [facility] [address] [id number] [place] [address]- 3439 17 Sep, 2014 [facility] [place] [facility] [address] [id number] [place] [address]- 0452 17 Sep, 2014 [facility] [place] [facility] [address] [id number] [place] [address]- 9586 15 Sep, 2014 [facility] [place] [facility] [address] [id number] [place] [address]- 6616 15 Sep, 2014 [facility] [place] [facility] [address] [id number] [place] [address]- 1126 12 Sep, 2014 [facility] [place] [facility] [address] [id number] [place] [address]- 6276 12 Sep, 2014 [facility] [place] [facility] [address] [id number] [place] [address]- 9305 Sep, [facility] [place] [facility] [address] [id number] [place] [address]- 9212 Sep, [facility] [place] [facility] [address] [id number] [place] [address]- 0748 Sep, [facility] [place] [facility] [address] [id number] [place] [address]- 9530 Sep, [facility] [place] [facility] [address] [id number] [place] [address]- 6251 Sep, [facility] [place] [facility] [address] [id number] [place] [address]- 2960 Sep, [facility] [place] [facility] [address] [id number] [place] [address]- 0709 Sep, [facility] [place] [facility] [address] [id number] [place] [address]- 2473 Sep, [facility] [place] [facility] [address] [id number] [place] [address]- 0076 Sep, [facility] [place] [facility] [address] [id number] [place] 08 Sep, 2014 [facility] [place] [facility] [address] [id number] [place] [address]- 5661 Aug, [facility] [place] [facility] [address] [id number] [place] [address]- 8206 Aug, [facility] [place] [facility] [address] [id number] [place] [address]- 4448 Aug, [facility] [place] [facility] [address] [id number] [place] [address]- 3660 Aug, [facility] [place] [facility] [address] [id number] [place] [address]- 6685 Aug, [facility] [place] [facility] [address] [id number] [place] [address]- 7218 Aug, [facility] [place] [facility] [address] [id number] [place] [address]- 9127 Aug, [facility] [place] [facility] [address] [id number] [place] [address]- 0551 Aug, [facility] [place] [facility] [address] [id number] [place] [address]- 8244 Aug, [facility] [place] [facility] [address] [id number] [place] [address]- 5918 Jul, [facility] [place] [facility] [address] [id number] [place] [address]- 4176 Jul, [facility] [place] [facility] [address] [id number] [address] 5687 Jul, [facility] [place] [facility] [address] [id number] [place] [address]- 0586 Jul, [facility] [place] [facility] [address] [id number] [place] [address]- 2112 Jul, [facility] [place] [facility] [address] [id number] [place] [address]- 2151 Jul, [facility] [place] [facility] [address] [id number] [address]- 4730 Jul, [facility] [place] [facility] [address] [id number] [place] [address]- 2947 13 Jul, 2013 [facility] [place] [facility] [address] [id number] [place] [address]- 1566 10 Jul, 2013 [facility] [place] [facility] [address] [id number] [place] [address]- 0626 10 Jul, 2013 [facility] [place] [facility] [address] [id number] [place] [address]- 6856 10 Jul, 2013 [facility] [place] [facility] [address] [id number] [place] [address] 254 10 Jul, 2013 [facility] [place] [facility] [address] [id number] [place] [address]- 8729 07 Jul, 2014 [facility] [place] [facility] [address] [id number] [place] [address]- 5687 07 Jul, 2014 [facility] [place] [facility] [address] [id number] [place] [address]- 3568 30 Sep, 2013 [facility] [place] [facility] [address] [id number] [place] [address] 2541 30 Sep, 2013 [facility] [place] [facility] [address] [id number] [place] [address] 2546 25 Sep, 2013 [facility] [place] [facility] [address] [id number] [place] [address] 2549 25 Sep, 2013 [facility] [place] [facility] [address] [id number] [place] [address] 2546 25 Sep, 2013 [facility] [place] [facility] [address] [id number] [place] [address] 2546 25 Sep, 2013 [facility] [place] [facility] [address] [id number] [place] [address] 2546 24 Sep, 2013 [facility] [place] [facility] [address] [id number] [place] [address] 2546 24 Sep, 2013 [facility] [place] [facility] [address] [id number] [place] [address] 2548 22 Sep, 2013 [facility] [place] [facility] [address] [id number] [place] [address]- 2025 22 Sep, 2013 [facility] [place] [facility] [address] [id number] [place] [address]- 1502 17 Sep, 2013 [facility] [place] [facility] [address] [id number] [place] [address]- 2374 17 Sep, 2013 [facility] [place] [facility] [address] [id number] [place] [address]- 9929 16 Sep, 2013 [facility] [place] [facility] [address] [id number] [place] [address]- 3607 16 Sep, 2013 [facility] [place] [facility] [address] [id number] [place] [address]- 2594 15 Jun, 2013 [facility] [place] [facility] [address] [id number] [place] [address]- 1568 15 Jun, 2013 [facility] [place] [facility] [address] [id number] [place] [address]- 4706 12 Jun, 2013 [facility] [place] [facility] [address] [id number] [place] [address]- 9015 12 Jun, 2013 [facility] [place] [facility] [address] [id number] [place] [address]- 2945 11 Jun, 2013 [facility] [place] [facility] [address] [id number] [place] [address]- 7963 11 Jun, 2013 [facility] [place] [facility] [address] [id number] [place] [address]- 254 11 Jun, 2013 [facility] [place] [facility] [address] [id number] [place] [address]- 2540 11 Jun, 2013 [facility] [place] [facility] [address] [id number] [place] [address]- 254 09 Sep, 2013 [facility] [place] [facility] [address] [id number] [place] [address]- 9057 09 Sep, 2013 [facility] [place] [facility] [address] [id number] [place] [address]- 4271 Jun, [facility] [place] [facility] [address] [id number] [place] [address]- 8151 Jun, [facility] [place] [facility] [address] [id number] [place] [address]- 3165 May, [facility] [place] [facility] [address] [id number] [place] [address]- 6620 May, [facility] [place] [facility] [address] [id number] [place] [address]- 8872 May, [facility] [place] [facility] [address] [id number] [place] [address]- 4327 May, [facility] [place] [facility] [address] [id number] [place] [address]- 9435 May, [facility] [place] [facility] [address] [id number] [place] [address]- 8660 May, [facility] [place] [facility] [address] [id number] [place] [address]- 9164 May, [facility] [place] [facility] [address] [id number] [place] [address]- 4426 May, [facility] [place] [facility] [address] [id number] [place] [address]- 5451 May, [facility] [place] [facility] [address] [id number] [place] [address]- 5560 May, [facility] [place] [facility] [address] [id number] [place] [address]- 5242 May, [facility] [place] [facility] [address] [id number] [place] [address]- 8458 May, [facility] [place] [facility] [address] [id number] [place] [address]- 2973 May, [facility] [place] [facility] [address] [id number] [place] [address]- 6431 Apr, [facility] [place] [facility] [address] [id number] [place] [address]- 2458 Apr, [facility] [place] [facility] [address] [id number] [place] [address]- 8160 Apr, [facility] [place] [facility] [address] [id number] [place] [address]- 0051 Apr, [facility] [place] [facility] [address] [id number] [place] [address]- 9351 Apr, [facility] [place] [facility] [address] [id number] [place] [address]- 7975 Mar, [facility] [place] [facility] [address] [id number] [place] [address]- 2326 Mar, [facility] [place] [facility] [address] [id number] [place] [address]- 8985 Mar, [facility] [place] [facility] [address] [id number] [place] [address]- 9200 February, [facility] [address] [id number] [place] [address]- 5468 February, [facility] [place] [facility] [address] [id number] [place] [address]- 7781 February, [facility] [address] [id number] [place] [address]- 6625 February, [facility] [place] [facility] [address] [id number] [place] [address]- 6150 February, [facility] [place] [facility] [address] [id number] [place] [address]- 4407 February, [facility] [place] [facility] [address] [id number] [place] [address]- 8720 February, [facility] [place] [facility] [address] [id number] [place] [address]- 2296 February, [facility] [place] [facility] [address] [id number] [place] [address] February, [facility] [place] [facility] [address] [id number] [place] [address]- 8969 Jan, [facility] [place] [facility] [address] [id number] [place] [address]- 7671 Jan, [facility] [place] [facility] [address] [id number] [place] [address]- 8690 Jan, [facility] [place] [facility] [address] [id number] [place] [address]- 9000 Jan, [facility] [place] [facility] [address] [id number] [place] [address]- 5056 Jan, [facility] [place] [facility] [address] [id number] [place] [address]- 0534 Dec, [facility] [place] [facility] [address] [id number] [place] [address]- 9735 Dec, [facility] [place] [facility] [address] [id number] [place] [address]- 3122 Dec, [facility] [place] [facility] [address] [id number] [place] [address]- 4919 Dec, [facility] [place] [facility] [address] [id number] [place] [address]- 5850 Dec, [facility] [place] [facility] [address] [id number] [place] [address]- 0123 Nov, [facility] [place] [facility] [address] [id number] [place] [address]- 8049 Nov, [facility] [place] [facility] [address] [id number] [place] [address]- 0263 Nov, [facility] [place] [facility] [address] [id number] [place] [address]- 1765 Nov, [facility] [place] [facility] [address] [id number] [place] [address]- 3575 Oct, [facility] [place] [facility] [address] [id number] [place] [address]- 7035 30 Oct, 2013 [facility] [place] [facility] [address] [id number] [place] [address]- 3393 Oct, [facility] [place] [facility] [address] [id number] [place] [address]- 9885 Oct, [facility] [place] [facility] [address] [id number] [place] [address]- 5015 Oct, [facility] [place] [facility] [address] [id number] [place] [address]- 5318 Oct, [facility] [place] [facility] [address] [id number] [place] [address]- 2218 Oct, [facility] [place] [facility] [address] [id number] [place] [address]- 2905 Oct, [facility] [place] [facility] [address] [id number] [place] [address]- 7729 Oct, [facility] [place] [facility] [address] [id number] [place] [address]- 4893 Oct, [facility] [place] [facility] [address] [id number] [place] [address]- 9689 Aug, [facility] [place] [facility] [address] [id number] [place] [address]- 2775 Aug, [facility] [place] [facility] [address] [id number] [place] [address]- 6147 Jul, [facility] [place] [facility] [address] [id number] [place] [address]- 3496 Jul, [facility] [place] [facility] [address] [id number] [place] [address]- 5620 Jul, [facility] [place] [facility] [address] [id number] [place] [address]- 7439 Jul, [facility] [place] [facility] [address] [id number] [place] [address]- 0354 Jul, [facility] [place] [facility] [address] [id number] [place] [address]- 6014 Jul, [facility] [place] [facility] [address] [id number] [place] [address]- 9688 Apr, [facility] [place] [facility] [address] [id number] [place] [address]- 1938 Dec, [facility] [place] [facility] [address] [id number] [place] [address]- 9404 Nov, [facility] [place] [facility] [address] [id number] [place] [address]- 9383 Nov, [facility] [place] [facility] [address] [id number] [place] [address]- 4503 Nov, [facility] [place] [facility] [address] [id number] [place] [address]- 0948 Oct, [facility] [place] [facility] [address] [id number] [place] [address]- 5293 Sep, [facility] [place] [facility] [address] [id number] [place] [address]- 1134 Sep, [facility] [place] [facility] [address] [id number] [place] [address]- 4267 Sep, [facility] [place] [facility] [address] [id number] [place] [address]- 1819 Sep, [facility] [place] [facility] [address] [id number] [address]- 5643 Aug, [facility] [place] [facility] [address] [id number] [place] [address]- 6436 Aug, [facility] [place] [facility] [address] [id number] [place] [address]- 6649 Jul, [facility] [place] [facility] [address] [id number] [place] [address]84 Jul, [facility] [place] [facility] [address] [id number] [address]- 8700 28 Jun, 2012 [facility] [place] [facility] [address] [id number] [place] [address]- 0526 26 Jun, 2012 [facility] [place] [facility] [address] [id number] [place] [address]- 1646 24 Jun, 2012 [facility] [place] [facility] [address] [id number] [place] [address]- 7416 24 Jun, 2012 [facility] [place] [facility] [address] [id number] [place] [address]- 0194 12 Jun, 2012 [facility] [place] [facility] [address] [id number] [place] [address]- 9375 31 Apr, 2012 [facility] [place] [facility] [address] [id number] [place] [address]- 7237 30 Apr, 2012 [facility] [place] [facility] [address] [id number] [place] [address]- 0308 Apr, [facility] [place] [facility] [address] [id number] [place] [address]- 3380 Mar, [facility] [place] [facility] [address] [id number] [place] [address]- 2991 Mar, [facility] [place] [facility] [address] [id number] [place] [address]- 0474 Mar, [facility] [place] [facility] [address] [id number] [place] [address]- 6137 February, [facility] [place] [facility] [address] [id number] [place] [address]- 3741 Jan, [facility] [place] [facility] [address] [id number] [place] [address]- 9607 Dec, [facility] [place] [facility] [address] [id number] [place] [address]- 6800 Dec, [facility] [place] [facility] [address] [id number] [place] [address]- 5584 Dec, [facility] [place] [facility] [address] [id number] [place] [address]- 1045 19 Dec, 2011 [facility] [place] [facility] [address] [id number] [place] [address]- 3001 Dec, [facility] [place] [facility] [address] [id number] [place] [address]- 8856 14 Nov, 2011 [facility] [place] [facility] [address] [id number] [place] [address]- 2496 13 Nov, 2011 [facility] [place] [facility] [address] [id number] [place] [address]- 3636 Oct, [facility] [place] [facility] [address] [id number] [place] [address]- 3683 Oct, [facility] [place] [facility] [address] [id number] [place] [address]- 2182 Oct, [facility] [place] [facility] [address] [id number] [place] [address]- 2008 Sep, [facility] [place] [facility] [address] [id number] [place] [address]- 1141 Aug, [facility] [place] [facility] [address] [id number] [place] [address]- 5079 Aug, [facility] [place] [facility] [address] [id number] [place] [address]- 4602 28 Jul, 2011 [facility] [place] [facility] [address] [id number] [place] [address]- 1365 24 Jul, 2011 [facility] [place] [facility] [address] [id number] [place] [address]- 4935 19 Jul, 2011 [facility] [place] [facility] [address] [id number] [place] [address]- 3038 13 Jan, 2011 [facility] [place] [facility] [address] [id number] [place] [address]- 2541 29 Sep, 2010 [facility] [place] [facility] [address] [id number] [place] [address]- 9714 Sep, [facility] [place] [facility] [address] [id number] [place] [address]- 7286 Sep, [facility] [place] [facility] [address] [id number] [place] [address]- 3016 Sep, [facility] [place] [facility] [address] [facility] [id number] [place] [address]- 6116 Sep, [facility] [place] [facility] [address] [id number] [place] [address] Aug, [facility] [place] [facility] [address] [id number] [place] [address] 16 Aug, 2010 [facility] [place] [facility] [address] [id number] [place] [address] 08 Aug, 2010 [facility] [place] [facility] [address] [id number] [place] [address] Jul, [facility] [place] [facility] [address] [id number] [address] Jul, [facility] [place] [facility] [address] [id number] [address] Jul, [facility] [place] [facility] [address] [id number] [place] [address] May, [facility] [place] [facility] [address] [id number] [address] 13 Apr, 2010 [facility] [place] [facility] [address] [id number] [address] 18 Dec, 2009 [facility] [place] [facility] [address] [id number] [place] [address] 17 Sep, 2009 [facility] [place] [facility] [address] [id number] [address] 17 Sep, 2009 [facility] [place] [facility] [address] [facility] [id number] [place] [address] Aug, [facility] [place] [facility] [address] [facility] [id number] [place] [address] Aug, [facility] [address] [facility] [id number] [place] [address] Jul, [facility] [address] [facility] [id number] [place] [address] Mar, IMMUNIZATIONS No Known Immunizations SOCIAL HISTORY Never Assessed REASON FOR VISIT DM supply note PLAN OF CARE VITAL SIGNS MEDICATIONS Medication Instructions Dosage Frequency Start Date End Date Duration Status TrueTrack Blood Glucose - as directed Jul, Active Test strips Test Strips Check blood sugar Jul, Active RESULTS No Results PROCEDURES No Known [...]
--- OUTSIDE RECORDS SUMMARY | 2018-10-08 20:42 | XMS REPORT ---
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 Name Role Phone JENNY WOLF Unavailable PROBLEMS Type Condition ICD9-CM Code XZO14-QF Code Onset Dates Condition Status SNOMED Code Problem Chronic pain G89.29 Active 67496076 Problem HSV (herpes simplex virus) infection B00.9 Active 30393116 Problem Gastroesophageal reflux disease without esophagitis K21.9 Active 991931794 Problem Type 2 diabetes mellitus with diabetic neuropathy, unspecified E11.40 Active 45010178 Problem manager terminal 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 Z79.4 Active 214861586 Problem Edema of both feet R60.0 Active 151204724 Problem Tobacco abuse Z72.0 Active 74983336 Problem Chronic migraine G43.709 Active 34171379 Problem Mixed hyperlipidemia E78.2 Active 436022942 Problem Spinal stenosis, lumbar region M48.06 Active 76099750 Problem Anxiety F41.9 Active 64003199 Problem Radiculopathy of lumbar region M54.16 Active 743216840 Problem Bulging lumbar disc M51.26 Active 624661492 Problem Asthma J45.909 Active 325601555 Problem Essential hypertension I10 Active 65798983 ALLERGIES No Information ENCOUNTERS Encounter Location Date Diagnosis [facility] [id number] [address] Mar, [facility] [id number], [place] [address] February, Chronic pain G89.29 [facility] [address], [place] [address] Jan, Chronic pain G89.29 [facility] [id number], [place] [address] 24[address] Jan, manager terminal 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 Z79.4 [facility] [id number] [place] [address] 40643- 2236 Jan, Encounter for Depo-Provera contraception Z30.42 [facility] [id number] [place] [address] 30420- 7960 Jan, [facility] [address] 31451- 1085 Jan, Chronic pain G89.29 and Anxiety F41.9 [facility] [address] 61467- 4362 Jan, [place] [address] 48125- 8334 Dec, [place] [address] 07018- 0157 Dec, Gastroesophageal reflux disease without esophagitis K21.9 and Anxiety F41.9 [facility] [id number] [place] [address] 18032- 8973 Dec, Essential hypertension I10 ; Mixed hyperlipidemia E78.2 ; Type 2 diabetes mellitus with diabetic neuropathy, unspecified E11.40 ; [facility]CI 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 Z79.4 ; Chronic pain G89.29 ; HSV (herpes simplex virus) infection B00.9 ; Anxiety F41.9 and Gastroesophageal reflux disease without esophagitis K21.9 [facility] [id number] [place] [address] 19086- 3837 Dec, Chronic pain G89.29 and Chronic migraine G43.709 [facility] [id number] [place] [address] 72977- 4856 Nov, [facility] [id number] [place] [address] 73650- 8702 Nov, Essential hypertension I10 and Chronic pain G89.29 [facility] [address] 01620- 5872 Nov, Chronic pain G89.29 ; Essential hypertension I10 and Type 2 diabetes mellitus without complication E11.9 [facility] [id number] [place] [address] 54878- 7917 Oct, Chronic pain G89.29 [facility] [id number] [place] [address] 64753- 7019 Oct, [address] [address] 14280- 9476 Sep, Type 2 diabetes mellitus without complication E11.9 ; Essential hypertension I10 ; manager terminal (current) use of insulin Z79.4 ; Chronic migraine G43.709 ; Chronic pain G89.29 and Acute non-recurrent maxillary sinusitis J01.00 [facility] [facility] [id number] [place] [address] 91994- 3916 Sep, Encounter for Depo-Provera contraception Z30.42 [facility] [id number] [place] [address] 75633- 2634 Sep, Chronic pain G89.29 and Radiculopathy of lumbar region M54.16 [facility] [id number] [place] [address] 81065- 3418 Sep, [facility] [id number] [place] [address] 94177- 8695 Sep, [facility] [id number] [place] [address] 64298- 6140 Aug, Type 2 diabetes mellitus without complication E11.9 [facility] [id number] [place] [address] 01889- 8962 Aug, [facility] [id number] [place] [address] 10270- 1190 Aug, Radiculopathy of lumbar region M54.16 and Chronic pain G89.29 [facility] [id number] [place] [address] 99129- 3368 Aug, Type 2 diabetes mellitus without complication E11.9 [facility] [address] [facility] [id number] [address] 4341 Aug, Type 2 diabetes mellitus without complication E11.9 [facility] [id number] [place] [address] 74412- 3506 Jul, Type 2 diabetes mellitus without complication E11.9 [facility] [id number] [place] [address] 07012- 2446 Jul, [facility] [id number] [place] [address] 91124 2547 Jul, Chronic pain G89.29 [facility] [id number] [place] [address] 43489- 3466 Jul, [facility] [id number] [place] [address] 97249- 4720 Jul, [facility] [id number] [place] [address] 59357- 7435 Jul, Type 2 diabetes mellitus without complication E11.9 [facility] [address], [place] [address] 8082 Jul, [facility] [id number] [place] [address] 22044- 4772 Jul, Type 2 diabetes mellitus without complication E11.9 [facility] [address], [place] [address]- 6458 Jul, [facility] [address], [place] [address]- 2549 Jul, [facility] [id number] [place] [address] 44462- 5463 Jul, [facility] [id number] [place] [address] 16606- 3778 Jun, Type 2 diabetes mellitus without complication E11.9 [facility] [address], [place] [address]- 8525 Jun, Chronic migraine G43.709 ; Type 2 diabetes mellitus without complication E11.9 ; Calculus of right kidney N20.0 ; Yeast dermatitis B37.2 and HSV (herpes simplex virus) infection B00.9 [facility] [id number] [place] [address] 11855- 5740 Jun, Type 2 diabetes mellitus without complication E11.9 [place] [address] 68090- 1903 Jun, [place] [address] 57926- 7214 Jun, Radiculopathy of lumbar region M54.16 and Chronic pain G89.29 [place] [address] 24679- 3027 Jun, Encounter for Depo-Provera contraception Z30.42 [place] [address] 96846- 1306 Jun, Type 2 diabetes mellitus without complication E11.9 [facility] [id number] [place] [address] 70349- 4896 Jun, [facility] [id number] [place] [address] 26261 -9856 May, Acute nasopharyngitis (common cold) J00 [place] [id number] [place] [address] 67735- 3365 May, Chronic pain G89.29 [place] [address] 77915- 9504 May, Headache following lumbar puncture G97.1 [place] [address] 69588- 7039 May, Radiculopathy of lumbar region M54.16 [place] [address] 02930- 2628 Apr, [place] [address] 14652- 4612 Apr, Type 2 diabetes mellitus without complication E11.9 ; Chronic pain G89.29 ; Essential hypertension I10 ; Radiculopathy of lumbar region M54.16 ; Spinal stenosis, lumbar region M48.06 ; Gastroesophageal reflux disease without esophagitis K21.9 ; HSV (herpes simplex virus) infection B00.9 ; Mixed hyperlipidemia E78.2 ; Anxiety F41.9 and Asthma J45.[address] 30017- 5332 Apr, Encounter for Depo-Provera contraception Z30.[address] 519674- 1712 Apr, Chronic pain G89.29 and Anxiety F41.[address] 49282- 3528 Mar, [address] 50939- 5113 Mar, [address] 25008- 5773 Mar, Mixed hyperlipidemia E78.[address] 91853- 4160 Mar, Type 2 diabetes mellitus without complication E11.9 ; Chronic pain G89.29 ; Essential hypertension I10 ; Radiculopathy of lumbar region M54.16 ; Spinal stenosis, lumbar region M48.06 ; Gastroesophageal reflux disease without esophagitis K21.9 ; HSV (herpes simplex virus) infection B00.9 ; Mixed hyperlipidemia E78.2 and Anxiety F41.[address] 74683- 0790 Mar, [address] 30541- 6311 Mar, [address] 82065- 3812 Mar, [facility] [address], [place] [address]- 0220 February, Chronic pain G89.29 [facility] [id number] [place] [address] 88851- 4351 February, [facility] [id number] [place] [address] 22798- 5692 Jan, Chronic pain G89.29 [facility] [id number] [place] [address] 92140- 1440 Jan, Type 2 diabetes mellitus without complication E11.9 [facility] [id number] [place] [address] 80467- 9019 Jan, [facility] [id number] [place] [address] 47474- 2865 Jan, [facility] [id number] [place] [address] 78215- 0646 Jan, [facility] [id number] [place] [address] 37039- 9179 Jan, Type 2 diabetes mellitus without complication [...] J01.00 and Encounter for Depo-Provera contraception Z30.42 [facility] [id number] [place] [address] 90640- 4328 Dec, Chronic pain G89.29 [facility] [id number] [place] [address] 99271- 5321 Dec, Abnormal ankle brachial index (BERNARDINO) R68.89 [facility] [id number] [place] [address] 59753- 9679 Dec, [place] [id number] [place] [address] 53253- 8101 Dec, Routine gynecological examination Z01.419 ; Chronic [...] B00.9 and Allergic rhinitis 477.9 [address] [id number] [place] [address] 04999- 0739 Nov, Chronic pain G89.29 [facility] [id number] [place] [address] 67036- 5714 02 Nov, 2016 Chronic pain G89.29 ; [...] media of both ears H65.113 [address] [id number] [place] [address] 68000- 5471 Oct, [address] [id number] [place] [address] 49491- 6466 Oct, Chronic pain G89.29 [facility] [id number] [place] [address] 87268- 8784 Oct, Chronic pain G89.29 [place] [id number] [place] [address] 20102- 4381 Sep, Chronic pain G89.29 ; Type 2 diabetes mellitus without complication E11.9 ; Essential hypertension I10 ; Radiculopathy of lumbar region M54.16 ; Spinal stenosis, lumbar region M48.06 ; Gastroesophageal reflux disease without esophagitis K21.9 ; Encounter for surveillance of injectable contraceptive Z30.42 ; Bilateral cold feet R20.9 ; Pain of left foot M79.672 and Pain in right foot M79.671 [place] [id number] [place] [address] 40329- 6687 Sep, [place] [address] 21740- 6260 Aug, [place] [address] 75840- 9912 Aug, [place] [address] 15781- 5303 Aug, Chronic pain G89.29 ; Type 2 diabetes mellitus without complication E11.9 ; Essential hypertension I10 ; Rash and nonspecific skin eruption R21 and Upper respiratory infection, acute J06.9 [address] [address] 91040- 2385 Aug, [place] [address] 04565- 2508 Aug, [place] [address] 76236- 5573 Jul, [place] [address] 46713- 6886 Jul, Dysuria R30.0 ; Encounter for Depo-Provera contraception Z30.42 ; Herpes simplex B00.9 ; Nausea & vomiting R11.2 and Asthma J45.909 [address] [address] 60296- 3552 Jun, Dysuria R30.0 [place] [address] 51478- 0148 Jun, Dysuria R30.0 [place] [address] 99750- 2535 15 Jun, 2016 [place] [id number] [place] [address] 47364- 1335 Jun, [facility] [id number] [place] [address] 59217- 2668 May, [facility] [id number] [place] [address] 37482- 5581 May, [facility] [id number] [place] [address] 19066- 2670 May, Chronic pain G89.29 ; Essential hypertension I10 ; Type 2 diabetes mellitus without complication E11.9 ; Edema of both feet R60.0 and Rash and nonspecific skin eruption R21 [facility] [id number] [place] [address] 29938- 7770 Apr, [facility] [id number] [place] [address] 29285- 8904 Mar, Carpal tunnel syndrome, left upper limb G56.02 and Carpal tunnel syndrome, right upper limb G56.01 [place] [id number] [place] [address] 41112- 8779 Mar, [facility] [id number] [place] [address] 54944- 8986 Mar, Encounter for Depo-Provera contraception Z30.42 [facility] [id number] [place] [address] 96485- 7475 February, [facility] [id number] [place] [address] 92399- 7819 February, [facility] [id number] [place] [address] 65406- 8262 February, Chronic pain G89.29 ; Essential hypertension I10 ; Type 2 diabetes mellitus without complication E11.9 ; HSV (herpes simplex virus) infection B00.9 ; Anxiety F41.9 ; Hypersomnia G47.10 ; Tobacco abuse Z72.0 ; Hand pain, left M79.642 ; Hand pain, right M79.641 ; Left foot pain M79.672 and Heart palpitations R00.[address] 31684- 9743 Jan, [place] [address] 68951- 3333 Jan, [place] [address] 50765- 8468 Jan, [place] [address] 89098- 9494 Jan, [address] 94050- 0262 Jan, Upper respiratory infection J06.9 and Type 2 diabetes mellitus without complication E11.[address] 62785- 0345 Dec, [address] 28973- 4184 Dec, Chronic pain G89.29 ; Essential hypertension I10 ; Type 2 diabetes mellitus without complication E11.9 ; HSV (herpes simplex virus) infection B00.9 ; Anxiety F41.9 ; Upper respiratory infection J06.9 ; Hypersomnia G47.10 and Tobacco abuse Z72.0 [id number] [place] [address] 88544- 3789 Dec, Encounter for Depo-Provera contraception Z30.42 [address] [id number] [place] [address] 60103- 8215 Dec, [address] 53776- 8128 Dec, Chronic pain G89.29 ; Sinusitis J32.9 ; Snoring R06.83 and Daytime hypersomnia G47.[address] 04698- 2118 Nov, HSV (herpes simplex virus) infection B00.9 ; Encounter for Papanicolaou smear for cervical cancer screening Z12.4 ; Screening for STD sexually transmitted disease Z11.3 and Bartholin's gland cyst N75.0 [place] [id number] [place] [address] 42556- 8973 Nov, [place] [id number] [place] [address] 05416- 1718 Nov, [place] [id number] [place] [address] 90999- 0369 Nov, Essential hypertension I10 ; Type 2 diabetes mellitus without complication E11.9 ; HSV (herpes simplex virus) infection B00.9 ; Spinal stenosis, lumbar region M48.06 and Vaginal yeast infection B37.3 [place] [id number] [place] [address] 36280- 4746 Nov, [place] [id number] [place] [address] 27109- 7085 Nov, [place] [id number] [place] [address] 80600- 9174 Oct, [place] [id number] [place] [address] 19409- 7972 Oct, HSV (herpes simplex virus) infection B00.9 ; Yeast infection B37.9 ; Change in bowel habit R19.4 ; Nausea & vomiting R11.2 and Gastroesophageal reflux disease without esophagitis K21.9 [place] [id number] [place] [address] 98840- 5259 Oct, [place] [id number] [place] [address] 90774- 5876 Oct, Type 2 diabetes mellitus without complication E11.9 ; Essential hypertension I10 and Acute maxillary sinusitis, recurrence not specified J01.00 [place] [id number] [place] [address] 63470- 0308 Oct, [facility] [place] [id number] [place] [address] 41355- 0543 Oct, [address] 69483- 5800 Oct, Exposure to head lice Z20.7 ; Blood glucose abnormal R73.09 ; Boil of buttock L02.32 and Type 2 diabetes mellitus without complication E11.[address] 92614- 5470 Oct, [address] 84285- 2076 Sep, [address] 35458- 3254 Sep, [address] 99214- 3791 Aug, Encounter for Depo-Provera contraception Z30.[address] 55670- 1960 Aug, Anxiety F41.9 ; Spinal stenosis, lumbar region M48.06 ; Radiculopathy of lumbar region M54.16 ; Asthma J45.909 ; GERD (gastroesophageal reflux disease) K21.9 ; Essential hypertension I10 and Long-term use of high- risk medication Z79.[address] 50052- 3182 Jul, [address] 08693- 0763 Jun, Hemorrhoid 455.[address] 46056- 9047 Jun, [address] 34206- 7688 Jun, Anxiety 300.00 ; Asthma 493.90 ; Hyperhidrosis 705.21 ; Chest discomfort 786.59 and Upper respiratory infection 465.[id number] [place] [address] 21958- 0307 May, Encounter for Depo-Provera contraception V25.49 [place] [address] 85906- 6331 May, [place] [address] 54372- 5261 May, [place] [address] 33879- 0075 May, Spinal stenosis of lumbar region with radiculopathy 724.02 ; Bulging of intervertebral disc between L4 and L5 722.10 ; GERD ( gastroesophageal reflux disease) 530.81 ; Chronic pain 338.29 ; Declining mobility 799.89 and Epigastric pain 789.06 [place] [address] 43669- 2067 Apr, [address] 26764- 4473 Apr, Nausea 787.02 and Heart burn 787.[address] 04822- 9313 Mar, Lumbago 724.2 ; Vitamin D deficiency 268.9 ; Anxiety 300.00 ; Allergic rhinitis 477.9 and Contraceptive surveillance V25.[address] 23485- 7372 February, 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 ; Chronic pain 338.29 and Vaginal discharge 623.5 [place] [address] 59237- 0784 February, [address] 94021- 7856 February, [place] [address] 51455- 3485 Jan, [place] [address] [id number] [place] [address]- 8545 13 Jan, 2015 [facility] [place] [facility] [address] [id number] [place] [address]- 9360 26 Dec, 2014 [facility] [place] [facility] [address] [id number] [place] [address]- 7881 26 Dec, 2014 [facility] [place] [facility] [address] [id number] [place] [address]- 3447 Dec, [facility] [place] [facility] [address] [id number] [place] [address]- 0963 Dec, [facility] [place] [facility] [address] [id number] [place] [address]- 6252 Dec, [facility] [place] [facility] [address] [id number] [place] [address]- 2774 18 Dec, 2014 [facility] [place] [facility] [address] [id number] [place] [address]- 0530 Dec, [facility] [place] [facility] [address] [id number] [place] [address]- 2197 Dec, [facility] [place] [facility] [address] [id number] [place] [address]- 6550 Dec, [facility] [place] [facility] [address] [facility] [id number] [place] [address]- 8549 Dec, [facility] [place] [facility] [address] [id number] [place] [address]- 2193 Dec, [facility] [place] [facility] [address] [id number] [place] [address]- 3633 Dec, [facility] [place] [facility] [address] [id number] [place] [address]- 1516 Nov, [facility] [place] [facility] [address] [id number] [place] [address]- 0542 Nov, [facility] [place] [facility] [address] [id number] [place] [address]- 8651 24 Nov, 2014 [facility] [place] [facility] [address] [id number] [place] [address]- 1566 24 Nov, 2014 [facility] [place] [facility] [address] [id number] [place] [address]- 1776 23 Nov, 2014 [facility] [place] [facility] [address] [facility] [id number] [place] [address]- 0746 23 Nov, 2014 [facility] [place] [facility] [address] [facility] [id number] [place] [address]- 9796 16 Nov, 2014 [facility] [place] [facility] [address] [id number] [place] [address]- 0056 16 Nov, 2014 [facility] [place] [facility] [address] [facility] [id number] [place] [address]- 8056 13 Nov, 2014 [facility] [place] [facility] [address] [facility] [id number] [place] [address]- 3436 13 Nov, 2014 [facility] [place] [facility] [address] [facility] [id number] [place] [address]- 1761 13 Nov, 2014 [facility] [place] [facility] [address] [facility] [id number] [place] [address]- 6990 13 Nov, 2014 [facility] [place] [facility] [address] [facility] [id number] [place] [address] 13 Nov, 2014 [facility] [place] [facility] [address] [facility] [id number] [place] [address] 13 Nov, 2014 [facility] [place] [facility] [address] [facility] [id number] [place] [address] 13 Nov, 2014 [facility] [place] [facility] [address] [facility] [id number] [place] [address] 13 Nov, 2014 [facility] [place] [facility] [address] [facility] [id number] [place] [address] 10 Nov, 2014 [facility] [place] [facility] [address] [facility] [id number] [place] [address] 10 Nov, 2014 [facility] [place] [facility] [address] [id number] [place] [address] Nov, 2014 [facility] [place] [facility] [address] [id number] [place] [address] Nov, 2014 [facility] [place] [facility] [address] [id number] [place] [address] Nov, 2014 [facility] [place] [facility] [address] [id number] [place] [address] Nov, [facility] [place] [facility] [address] [id number] [place] [address] Nov, [facility] [place] [facility] [address] [id number] [place] [address] Oct, [facility] [place] [facility] [address] [id number] [place] [address] Oct, [facility] [place] [facility] [address] [id number] [place] [address] Oct, [facility] [place] [facility] [address] [id number] [place] [address] Oct, [facility] [place] [facility] [address] [id number] [place] [address] Oct, [facility] [place] [facility] [address] [id number] [address] Oct, [facility] [place] [facility] [address] [id number], [place] [address] Oct, [facility] [place] [facility] [address] [id number] [place] [address] Oct, [facility] [place] [facility] [address] [id number] [place] [address] Oct, [facility] [place] [facility] [address] [id number] [place] [address] Oct, [facility] [facility] [address] [id number], [place] [address] Oct, [facility] [address] [id number] [place] [address] Oct, [facility] [place] [facility] [address] [id number] [place] [address] 8710 Oct, [facility] [place] [facility] [address] [id number] [place] [address] 6439 Oct, [facility] [place] [facility] [address] [id number] [place] [address] 8645 Oct, [facility] [place] [facility] [address] [id number] [place] [address] 3725 Oct, [facility] [place] [facility] [address] [id number] [place] [address] 3766 Oct, [facility] [address] [id number] [place] [address] 4397 Oct, [facility] [place] [facility] [address] [id number] [place] [address] 2054 Oct, [facility] [place] [facility] [address] [id number] [place] [address] 6363 Oct, [facility] [place] [facility] [address] [facility] [id number] [place] [address] 0461 Oct, [facility] [address] [id number] [place] [address] 57[address] Sep, [facility] [place] [facility] [address] [id number], [place] [address] 29 Sep, 2014 [facility] [place] [facility] [address] [id number] [place] [address]- 3980 Sep, [facility] [place] [facility] [address] [id number] [place] [address]- 7089 Sep, [facility] [place] [facility] [address] [id number] [place] [address]- 3353 17 Sep, 2014 [facility] [place] [facility] [address] [id number] [place] [address]- 8459 17 Sep, 2014 [facility] [place] [facility] [address] [id number] [place] [address]- 6566 15 Sep, 2014 [facility] [place] [facility] [address] [id number] [place] [address]- 1196 15 Sep, 2014 [facility] [place] [facility] [address] [id number] [place] [address]- 1366 12 Sep, 2014 [facility] [place] [facility] [address] [id number] [place] [address]- 2635 12 Sep, 2014 [facility] [place] [facility] [address] [id number] [place] [address]- 1104 Sep, [facility] [place] [facility] [address] [id number] [place] [address]- 4948 Sep, [facility] [place] [facility] [address] [id number] [place] [address]- 3875 Sep, [facility] [place] [facility] [address] [id number] [place] [address]- 1804 Sep, [facility] [place] [facility] [address] [id number] [place] [address]- 0846 Sep, [facility] [place] [facility] [address] [id number] [place] [address]- 5513 Sep, [facility] [place] [facility] [address] [id number] [place] [address]- 1746 Sep, [facility] [place] [facility] [address] [id number] [place] [address]- 6227 Sep, [facility] [address] [id number] [place] [address]- 1686 Sep, [facility] [facility] [address] [id number] [place] 08 Sep, 2014 [facility] [place] [facility] [address] [id number] [place] [address]- 9491 Aug, [facility] [facility] [address] [id number] [place] [address]- 6529 Aug, [facility] [address] [id number] [place] [address]- 2019 Aug, [facility] [address] [id number] [place] [address]- 6575 Aug, [facility] [address] [id number] [place] [address]- 0947 Aug, [facility] [address] [id number] [place] [address]- 0217 Aug, [facility] [address] [id number] [place] [address]- 3279 Aug, [facility] [address] [id number] [place] [address]- 4618 Aug, [facility] [address] [id number] [place] [address]- 3853 Aug, [facility] [place] [facility] [address] [id number] [place] [address]- 9808 Jul, [facility] [place] [facility] [address] [id number] [place] [address]- 7652 Jul, [facility] [address] [id number], [place] [address]- 9[address] Jul, [facility] [address] [id number], [place] [address] 6456 Jul, [facility] [address] [id number] [place] [address]- 2146 Jul, [facility] [address] [id number], [place] [address] 3444 Jul, [facility] [address] [id number], [place] [address]- 2618 Jul, [facility] [address] [id number] [place] [address]- 5231 13 Jul, 2013 [facility] [address] [id number] [place] [address]- 8916 10 Jul, 2013 [facility] [address] [id number] [place] [address]- 6756 10 Jul, 2013 [facility] [address] [id number] [place] [address]- 8316 10 Jul, 2013 [facility] [address] [id number] [place] [address] 2540 10 Jul, 2013 [facility] [address] [id number] [place] [address]- 4763 07 Jul, 2014 [facility] [address] [id number] [place] [address]- 5468 07 Jul, 2014 [facility] [address] [id number] [place] [address]- 2483 30 Sep, 2013 [facility] [address] [id number] [place] [address] 2548 30 Sep, 2013 [facility] [address] [id number] [place] [address] 2546 25 Sep, 2013 [facility] [address] [id number] [place] [address] 2548 25 Sep, 2013 [facility] [address] [id number] [place] [address] 2546 25 Sep, 2013 [facility] [address] [id number] [place] [address] 2546 25 Sep, 2013 [facility] [address] [id number] [place] [address] 2546 24 Sep, 2013 [facility] [address] [id number] [place] [address] 2546 24 Sep, 2013 [facility] [address] [id number] [place] [address] 2545 22 Sep, 2013 [facility] [address] [id number] [place] [address]- 1332 22 Sep, 2013 [facility] [address] [id number] [place] [address]- 9800 17 Sep, 2013 [facility] [address] [id number] [place] [address]- 4404 17 Sep, 2013 [facility] [address] [id number] [place] [address]- 5062 16 Sep, 2013 [facility] [address] [id number] [place] [address]- 6304 16 Sep, 2013 [facility] [address] [id number] [place] [address]- 3833 15 Jun, 2013 [facility] [address] [id number] [place] [address]- 1898 15 Jun, 2013 [facility] [address] [id number] [place] [address]- 2581 12 Jun, 2013 [facility] [address] [id number] [place] [address]- 8263 12 Jun, 2013 [facility] [address] [id number] [place] [address]- 8319 11 Jun, 2013 [facility] [address] [id number] [place] [address]- 2361 11 Jun, 2013 [facility] [address] [id number] [place] [address]- 2541 11 Jun, 2013 [facility] [address] [id number] [place] [address]- 254 11 Jun, 2013 [facility] [address] [id number] [place] [address]- 2541 09 Sep, 2013 [facility] [address] [id number] [place] [address]- 5937 09 Sep, 2013 [facility] [address] [id number] [place] [address]- 1858 Jun, [facility] [address] [id number] [place] [address]- 8297 Jun, [facility] [address] [id number] [place] [address]- 0896 May, [facility] [address] [id number] [place] [address]- 3055 May, [facility] [address] [id number] [place] [address]- 2896 May, [facility] [address] [id number] [place] [address]- 4462 May, [facility] [address] [id number] [place] [address]- 1180 May, [facility] [address] [id number] [place] [address]- 7787 May, [facility] [address] [id number] [place] [address]- 9330 May, [facility] [address] [id number] [place] [address]- 3133 May, [facility] [address] [id number] [place] [address]- 0258 May, [facility] [address] [id number] [place] [address]- 2644 May, [facility] [address] [id number] [place] [address]- 9865 May, [facility] [address] [id number] [place] [address]- 8387 May, [facility] [address] [id number] [place] [address]- 0801 May, [facility] [address] [id number] [place] [address]- 4469 Apr, [facility] [address] [id number] [place] [address]- 1366 Apr, [facility] [address] [id number] [place] [address]- 7443 Apr, [facility] [address] [id number] [place] [address]- 1395 Apr, [facility] [address] [id number] [place] [address]- 5476 Apr, [facility] [address] [id number] [place] [address]- 6559 Mar, [facility] [address] [id number] [place] [address]- 8349 Mar, [facility] [address] [id number] [place] [address]- 7192 Mar, [facility] [address] [id number] [place] [address]- 7643 February, [facility] [address] [id number] [place] [address]- 7445 February, [facility] [address] [id number] [place] [address]- 4103 February, [facility] [address] [id number] [place] [address]- 2085 February, [facility] [address] [id number] [place] [address]- 2758 February, [facility] [address] [id number] [place] [address]- 5164 February, [facility] [address] [id number] [place] [address]- 2432 February, [facility] [address] [id number] [place] [address]- 9316 February, [facility] [address] [id number] [place] [address] February, [facility] [address] [id number] [place] [address]- 5567 Jan, [facility] [address] [id number] [place] [address]- 2513 Jan, [facility] [address] [id number] [place] [address]- 2789 Jan, [facility] [address] [id number] [place] [address]- 8110 Jan, [facility] [address] [id number] [place] [address]- 9373 Jan, [facility] [address] [id number] [place] [address]- 7975 Dec, [facility] [address] [id number] [place] [address]- 4164 Dec, [facility] [facility] [address] [id number] [place] [address]- 1942 Dec, [facility] [address] [id number] [place] [address]- 9967 Dec, [facility] [address] [id number] [place] [address]- 0591 Dec, [facility] [address] [id number] [place] [address]- 7663 Nov, [facility] [address] [id number] [place] [address]- 0459 Nov, [facility] [address] [id number] [place] [address]- 0642 Nov, [facility] [address] [id number] [place] [address]- 4887 Nov, [facility] [address] [id number] [place] [address]- 8846 Oct, [facility] [address] [id number] [place] [address]- 3150 30 Oct, 2013 [facility] [address] [id number] [place] [address]- 3224 Oct, [facility] [address] [id number] [place] [address]- 3342 Oct, [facility] [address] [id number] [place] [address]- 9909 Oct, [facility] [address] [id number] [place] [address]- 0137 Oct, [facility] [address] [id number] [place] [address]- 8305 Oct, [facility] [address] [id number] [place] [address]- 0655 Oct, [facility] [address] [id number] [place] [address]- 8611 Oct, [facility] [place] [address] [id number] [place] [address]- 0130 Oct, [facility] [address] [id number] [place] [address]- 8094 Aug, [facility] [place] [facility] [address] [id number] [place] [address]- 3008 Aug, [facility] [place] [facility] [address] [id number] [place] [address]- 0767 Jul, [facility] [place] [facility] [address] [id number] [place] [address]- 1544 Jul, [facility] [place] [facility] [address] [id number] [place] [address]- 6730 Jul, [facility] [place] [facility] [address] [id number] [place] [address]- 4409 Jul, [facility] [place] [facility] [address] [id number] [place] [address]- 2500 Jul, [facility] [address] [id number] [place] [address]- 7555 Jul, [facility] [place] [facility] [address] [id number] [place] [address]- 5983 Apr, [facility] [place] [facility] [address] [id number] [place] [address]- 6253 Dec, [facility] [place] [facility] [address] [id number] [place] [address]- 3580 Nov, [facility] [place] [facility] [address] [id number] [place] [address]- 4436 Nov, [facility] [place] [facility] [address] [id number] [place] [address]- 0872 Nov, [facility] [place] [facility] [address] [id number] [place] [address]- 3251 Oct, [facility] [place] [facility] [address] [id number] [place] [address]- 0802 Sep, [facility] [place] [facility] [address] [id number] [place] [address]- 3529 Sep, [facility] [place] [facility] [address] [id number] [place] [address]- 9835 Sep, [facility] [place] [facility] [address] [id number] [place] [address]- 7996 Sep, [facility] [place] [facility] [address] [id number], [place] [address]- 8994 Aug, [facility] [place] [facility] [address] [id number] [place] [address]- 2340 Aug, [facility] [place] [facility] [address] [id number] [place] [address]- 6189 Jul, [facility] [place] [facility] [address] [id number] [address]642 Jul, [facility] [place] [facility] [address] [id number], [place] [address]- 8211 28 Jun, 2012 [facility] [place] [facility] [address] [id number] [place] [address]- 8406 26 Jun, 2012 [facility] [place] [facility] [address] [id number] [place] [address]- 1126 24 Jun, 2012 [facility] [place] [facility] [address] [id number] [place] [address]- 0776 24 Jun, 2012 [facility] [place] [facility] [address] [id number] [place] [address]- 8684 12 Jun, 2012 [facility] [place] [facility] [address] [id number] [place] [address]- 3714 31 Apr, 2012 [facility] [place] [facility] [address] [id number] [place] [address]- 3809 30 Apr, 2012 [facility] [place] [facility] [address] [id number] [place] [address]- 6444 Apr, [facility] [place] [facility] [address] [id number] [place] [address]- 5579 Mar, [facility] [place] [facility] [address] [id number] [place] [address]- 2684 Mar, [facility] [place] [facility] [address] [id number] [place] [address]- 2235 Mar, [facility] [place] [facility] [address] [id number] [place] [address]- 1002 February, [facility] [place] [facility] [address] [id number] [place] [address]- 1181 Jan, [facility] [place] [facility] [address] [id number] [place] [address]- 1256 Dec, [facility] [place] [facility] [address] [id number] [place] [address]- 4991 Dec, [facility] [place] [facility] [address] [id number] [place] [address]- 7146 Dec, [facility] [place] [facility] [address] [id number] [place] [address]- 2900 19 Dec, 2011 [facility] [place] [facility] [address] [id number] [place] [address]- 1158 Dec, [facility] [place] [facility] [address] [id number] [place] [address]- 8106 14 Nov, 2011 [facility] [place] [facility] [address] [id number] [place] [address]- 4896 13 Nov, 2011 [facility] [place] [facility] [address] [id number] [place] [address]- 4873 Oct, [facility] [place] [facility] [address] [id number] [place] [address]- 3066 Oct, [facility] [place] [facility] [address] [id number] [place] [address]- 2920 Oct, [facility] [place] [facility] [address] [id number] [place] [address]- 9059 Sep, [facility] [place] [facility] [address] [id number] [place] [address]- 6180 Aug, [facility] [place] [facility] [address] [id number] [place] [address]- 7751 Aug, [facility] [place] [facility] [address] [id number] [place] [address]- 2940 28 Jul, 2011 [facility] [place] [facility] [address] [id number] [place] [address]- 6859 24 Jul, 2011 [facility] [place] [facility] [address] [id number] [place] [address]- 8470 19 Jul, 2011 [facility] [place] [facility] [address] [id number] [place] [address]- 7405 13 Jan, 2011 [facility] [place] [facility] [address] [id number] [place] [address]- 2543 29 Sep, 2010 [facility] [place] [facility] [address] [id number] [place] [address]- 8677 Sep, [facility] [place] [facility] [address] [id number] [place] [address]- 5097 Sep, [facility] [place] [facility] [address] [id number] [place] [address]- 7366 Sep, [facility] [place] [facility] [address] [facility] [id number] [place] [address]- 8916 Sep, [facility] [place] [facility] [address] [id number] [place] [address]- 6795 Aug, [facility] [place] [facility] [address] [id number] [place] [address]- 0746 16 Aug, 2010 [facility] [place] [facility] [address] [id number] [place] [address]- 3055 08 Aug, 2010 [facility] [place] [facility] [address] [id number] [place] [address]- 4591 Jul, [facility] [place] [facility] [address] [id number], [place] [address]- 1516 Jul, [facility] [place] [facility] [address] [id number], [place] [address]- 0675 Jul, [facility] [place] [facility] [address] [id number], [place] [address]- 2602 May, [facility] [place] [facility] [address] [id number], [place] [address]- 5950 13 Apr, 2010 [facility] [place] [facility] [address] [id number], [place] [address] 18 Dec, 2009 [facility] [address] [id number], [place] [address] 17 Sep, 2009 [facility] [address] [id number], [place] [address] 17 Sep, 2009 [facility] [address] [facility] [id number], [place] [address] Aug, [facility] [address] [facility] [id number] [place] [address] Aug, [facility] [address] [facility] [id number] [place] [address] Jul, [facility] [address] [facility] [id number] [place] [address] Mar, IMMUNIZATIONS No Known Immunizations SOCIAL HISTORY Never Assessed REASON FOR VISIT BS f/u PLAN OF CARE VITAL SIGNS MEDICATIONS Medication Instructions Dosage Frequency Start Date End Date Duration Status NovoLog Flexpen 100 UNIT/ML Subcutaneous before meals 3 times daily 30 units Active Levemir Flexpen 100 UNIT/ML Subcutaneous twice a day 23 units 12h Active RESULTS No Results PROCEDURES No Known [...]
[2018-10-08 20:43] LABS: BILIRUBIN,URINE NEGATIVE (NEGATIVE); CLARITY,URINE CLEAR; COLOR,URINE YELLOW; GLUCOSE, URINE (UA) 4+ (NEGATIVE); KETONES,URINE NEGATIVE (NEGATIVE); LEUKOCYTE ESTERASE ,URINE NEGATIVE (NEGATIVE); NITRITE,URINE NEGATIVE (NEGATIVE); PH,URINE 6 (5-9); PROTEIN,URINE 2+ (NEGATIVE); UROBILINOGEN,URINE NORMAL (NORMAL)
--- OUTSIDE RECORDS SUMMARY | 2018-10-08 20:43 | XMS REPORT ---
Author Author JENNY WOLF [facility] Address [address] [place] [address] Care Team Providers Care Bark Tanner Name Role Phone JENNY WOLF Unavailable PROBLEMS Type Condition ICD9-CM Code [id number] Code Onset Dates Condition Status SNOMED Code Problem Hypersomnia G47.10 Active 99626355 Problem Hand pain, left M79.642 Active 52121237 Problem Tobacco abuse Z72.0 Active 20986693 Problem Chronic migraine G43.709 Active 44374522 Problem Asthma J45.909 Active 495095885 Problem Calculus of right kidney N20.0 Active 84589473 Problem Spinal stenosis, lumbar region M48.06 Active 10675324 Problem Hand pain, right M79.641 Active 65298522 Problem Heart palpitations R00.2 Active 53425321 Problem Mixed hyperlipidemia E78.2 Active 894104840 Problem Edema of both feet R60.0 Active 218743390 Problem Bulging lumbar disc M51.26 Active 189268171 Problem Radiculopathy of lumbar region M54.16 Active 630236712 Problem Anxiety F41.9 Active 26139152 Problem Essential hypertension I10 Active 16778138 Problem HSV (herpes simplex virus) infection B00.9 Active 46836951 Problem Chronic pain G89.29 Active 92722297 Problem Type 2 diabetes mellitus without complication E11.9 Active 42265096 Problem Snoring R06.83 Active 40991979 Problem Gastroesophageal reflux disease without esophagitis K21.9 Active 898329685 Problem Daytime hypersomnia G47.19 Active [id number] ALLERGIES No Information SOCIAL HISTORY Never Assessed [...] 2015 Hospitalization History Surgery(s) only Hospitalization History [place]-se[place]/AR[facility] 06/2017
--- OUTSIDE RECORDS SUMMARY | 2018-10-08 20:44 | XMS REPORT ---
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 Active 257174541 Problem Edema of both feet R60.0 Active 194007192 Problem Tobacco abuse Z72.0 Active 18486508 Problem Chronic migraine G43.709 Active 11891557 Problem Mixed hyperlipidemia E78.2 Active 508421622 Problem Spinal stenosis, lumbar region M48.06 Active 78251973 Problem Anxiety F41.9 Active 03729320 Problem Radiculopathy of lumbar region M54.16 Active 521312989 Problem Bulging lumbar disc M51.26 Active 838612103 Problem Asthma J45.909 Active 056336276 Problem Essential hypertension I10 Active 26510611 ALLERGIES No Information ENCOUNTERS Encounter Location Date Diagnosis [facility] [id number] [address] February, [facility] [id number], [place] [address] Jan, Chronic pain G89.29 [facility] [id number], [place] [address] 9[address] Jan, intermediate 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 Z79.4 [facility] [id number], [place] [address] 6[address] Jan, Encounter for Depo-Provera contraception Z30.42 [place] [address] 27903- 9632 Jan, [place] [address] 84951- 7559 Jan, Chronic pain G89.29 and Anxiety F41.9 [place] [address] 59902- 0628 Jan, [place] [address] 02273- 5349 Dec, [place] [address] 48709- 2399 Dec, Gastroesophageal reflux disease without esophagitis K21.9 and Anxiety F41.9 [place] [address] 25744- 8133 Dec, Essential hypertension I10 ; Mixed hyperlipidemia E78.2 ; Type 2 diabetes mellitus with diabetic neuropathy, unspecified E11.40 ; intermediate 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 Z79.4 ; Chronic pain G89.29 ; HSV (herpes simplex virus) infection B00.9 ; Anxiety F41.9 and Gastroesophageal reflux disease without esophagitis K21.9 [place] [address] 44652- 0594 07 Dec, 2017 Chronic pain G89.29 and Chronic migraine G43.709 [place] [address] 47470- 8497 Nov, [place] [address] 85403- 6472 Nov, Essential hypertension I10 and Chronic pain G89.29 [place] [address] 76377- 5402 05 Nov, 2017 Chronic pain G89.29 ; Essential hypertension I10 and Type 2 diabetes mellitus without complication E11.9 [place] [address] [place] [address]- 2376 Oct, Chronic pain G89.29 [facility] [id number] [place] [address] 01262- 1133 Oct, [facility] [id number] [place] [address] 96307- 8088 Sep, Type 2 diabetes mellitus without complication E11.9 ; Essential hypertension I10 ; intermediate (current) use of insulin Z79.4 ; Chronic migraine G43.709 ; Chronic pain G89.29 and Acute non-recurrent maxillary sinusitis J01.00 [place] [id number] [place] [address] 65411- 5741 19 Sep, 2017 Encounter for Depo-Provera contraception Z30.42 [facility] [id number] [place] [address] 56474- 8990 13 Sep, 2017 Chronic pain G89.29 and Radiculopathy of lumbar region M54.16 [place] [id number] [place] [address] 04336- 9181 Sep, [place] [id number] [place] [address] 80241- 3311 Sep, [place] [id number] [place] [address] 48653- 0667 Aug, Type 2 diabetes mellitus without complication E11.9 [facility] [id number] [place] [address] 04515- 4181 Aug, [place] [id number] [place] [address] 74697- 4329 Aug, Radiculopathy of lumbar region M54.16 and Chronic pain G89.29 [place] [id number] [place] [address] 35604- 4503 09 Aug, 2017 Type 2 diabetes mellitus without complication E11.9 [place] [id number] [place] [address] 40602- 5951 02 Aug, 2017 Type 2 diabetes mellitus without complication E11.9 [facility] [address], [place] [address] 5524 Jul, Type 2 diabetes mellitus without complication E11.9 [facility] [address], [place] [address]- 6219 Jul, [facility] [id number] [place] [address] 31670- 5670 Jul, Chronic pain G89.29 [facility] [id number] [place] [address] 98268- 5332 Jul, [facility] [id number] [place] [address] 98531- 5834 Jul, [facility] [id number] [place] [address] 18730- 2917 Jul, Type 2 diabetes mellitus without complication E11.9 [facility] [id number] [place] [address] 45777- 9007 Jul, [facility] [id number] [address] 6589 Jul, Type 2 diabetes mellitus without complication E11.9 [facility] [address], [place] [address]- 1096 Jul, [facility] [address], [place] [address]- 0031 Jul, [facility] [address], [place] [address]- 4974 Jul, [facility] [address], [place] [address] 1882 Jun, Type 2 diabetes mellitus without complication E11.9 [facility] [address], [place] [address]- 7801 Jun, Chronic migraine G43.709 ; Type 2 diabetes mellitus without complication E11.9 ; Calculus of right kidney N20.0 ; Yeast dermatitis B37.2 and HSV (herpes simplex virus) infection B00.9 [facility] [id number] [place] [address] 58620- 4503 Jun, Type 2 diabetes mellitus without complication E11.9 [facility] [id number] [place] [address] 67510- 8494 Jun, [facility] [address] 30716- 5200 Jun, Radiculopathy of lumbar region M54.16 and Chronic pain G89.29 [place] [address] 54780- 1734 Jun, Encounter for Depo-Provera contraception Z30.42 [place] [id number] [place] [address] 99943- 7916 Jun, Type 2 diabetes mellitus without complication E11.9 [place] [address] 57346- 0454 Jun, [facility] [address] 78292 -0581 May, Acute nasopharyngitis (common cold) J00 [place] [id number] [place] [address] 88991- 7826 May, Chronic pain G89.29 [place] [id number] [place] [address] 23388- 1206 May, Headache following lumbar puncture G97.1 [place] [address] 05824- 7881 May, Radiculopathy of lumbar region M54.16 [place] [address] 39165- 5075 Apr, [facility] [id number] [place] [address] 59217- 3807 Apr, Type 2 diabetes mellitus without complication E11.9 ; Chronic pain G89.29 ; Essential hypertension I10 ; Radiculopathy of lumbar region M54.16 ; Spinal stenosis, lumbar region M48.06 ; Gastroesophageal reflux disease without esophagitis K21.9 ; HSV (herpes simplex virus) infection B00.9 ; Mixed hyperlipidemia E78.2 ; Anxiety F41.9 and Asthma J45.909 [place] [id number] [place] [address] 17279- 3657 Apr, Encounter for Depo-Provera contraception Z30.42 [place] [address] 01547- 6070 Apr, Chronic pain G89.29 and Anxiety F41.9 [place] [address] 62279- 3434 Mar, [place] [address] 11357- 2105 Mar, [place] [address] 72162- 2983 Mar, Mixed hyperlipidemia E78.2 [place] [id number] [place] [address] 72211- 9301 Mar, Type 2 diabetes mellitus without complication E11.9 ; Chronic pain G89.29 ; Essential hypertension I10 ; Radiculopathy of lumbar region M54.16 ; Spinal stenosis, lumbar region M48.06 ; Gastroesophageal reflux disease without esophagitis K21.9 ; HSV (herpes simplex virus) infection B00.9 ; Mixed hyperlipidemia E78.2 and Anxiety F41.9 [place] [id number] [place] [address] 49372- 4773 Mar, [place] [id number] [place] [address] 55913- 9175 Mar, [place] [id number] [place] [address] 72560- 4359 Mar, [place] [id number] [place] [address] 40517- 9869 February, Chronic pain G89.29 [facility] [address], [place] [address]- 5575 February, [facility] [id number] [place] [address] 94518- 6978 Jan, Chronic pain G89.29 [facility] [address], [place] [address]- 8694 Jan, Type 2 diabetes mellitus without complication E11.9 [facility] [id number] [place] [address] 80007- 2283 Jan, [place] [id number] [place] [address] 12956- 5655 Jan, [facility] [id number] [place] [address] 03860- 4952 Jan, [place] [id number] [place] [address] 57147- 1989 Jan, Type 2 diabetes mellitus without complication [...] J01.00 and Encounter for Depo-Provera contraception Z30.42 [facility] [address], [place] [address]- 7205 28 Dec, 2016 Chronic pain G89.29 [facility] [id number] [place] [address] 01603- 3083 Dec, Abnormal ankle brachial index (BERNARDINO) R68.89 [place] [address], [place] [address]- 9670 Dec, [facility] [id number] [place] [address] 28431- 0814 Dec, Routine gynecological examination Z01.419 ; Chronic [...] virus) infection B00.9 and Allergic rhinitis 477.9 [place] [id number] [place] [address] 04531- 0846 Nov, Chronic pain G89.29 [place] [id number] [place] [address] 36524- 9487 02 Nov, 2016 Chronic pain G89.29 ; [...] media of both ears H65.113 [place] [id number] [place] [address] 75579- 0084 Oct, [place] [id number] [place] [address] 34111- 6891 Oct, Chronic pain G89.29 [place] [id number] [place] [address] 20514- 2103 Oct, Chronic pain G89.[address] 32213- 9302 Sep, Chronic pain G89.29 ; Type 2 diabetes mellitus without complication E11.9 ; Essential hypertension I10 ; Radiculopathy of lumbar region M54.16 ; Spinal stenosis, lumbar region M48.06 ; Gastroesophageal reflux disease without esophagitis K21.9 ; Encounter for surveillance of injectable contraceptive Z30.42 ; Bilateral cold feet R20.9 ; Pain of left foot M79.672 and Pain in right foot M79.671 [place] [address] 22560- 9001 05 Sep, 2016 [place] [address] 72465- 2551 Aug, [place] [address] 67971- 5931 Aug, [place] [address] 06984- 5493 Aug, Chronic pain G89.29 ; Type 2 diabetes mellitus without complication E11.9 ; Essential hypertension I10 ; Rash and nonspecific skin eruption R21 and Upper respiratory infection, acute J06.9 [place] [address] 21634- 2206 Aug, [place] [address] 78980- 3559 Aug, [place] [address] 57245- 5152 Jul, [place] [address] 72955- 3064 Jul, Dysuria R30.0 ; Encounter for Depo-Provera contraception Z30.42 ; Herpes simplex B00.9 ; Nausea & vomiting R11.2 and Asthma J45.909 [place] [id number] [place] [address] 91749- 2777 Jun, Dysuria R30.0 [place] [address] 19725- 6590 19 Jun, 2016 Dysuria R30.0 [place] [address] 35759- 8997 15 Jun, 2016 [place] [address] 68391- 0974 Jun, [place] [address] [place] [address] 62997- 1113 May, [place] [id number] [place] [address] 16042- 5790 May, [place] [id number] [place] [address] 80919- 6222 May, Chronic pain G89.29 ; Essential hypertension I10 ; Type 2 diabetes mellitus without complication E11.9 ; Edema of both feet R60.0 and Rash and nonspecific skin eruption R21 [place] [id number] [place] [address] 62899- 6864 Apr, [place] [id number] [place] [address] 91562- 7604 Mar, Carpal tunnel syndrome, left upper limb G56.02 and Carpal tunnel syndrome, right upper limb G56.01 [place] [id number] [place] [address] 14447- 8379 Mar, [place] [id number] [place] [address] 66422- 5217 Mar, Encounter for Depo-Provera contraception Z30.42 [place] [id number] [place] [address] 92717- 9357 February, [place] [id number] [place] [address] 80150- 7240 February, [place] [id number] [place] [address] 63626- 5172 February, Chronic pain G89.29 ; Essential hypertension I10 ; Type 2 diabetes mellitus without complication E11.9 ; HSV (herpes simplex virus) infection B00.9 ; Anxiety F41.9 ; Hypersomnia G47.10 ; Tobacco abuse Z72.0 ; Hand pain, left M79.642 ; Hand pain, right M79.641 ; Left foot pain M79.672 and Heart palpitations R00.2 [place] [id number] [place] [address] 54793- 4248 Jan, [place] [id number] [place] [address] 34646- 7824 Jan, [place] [id number] [place] [address] 46983- 5136 Jan, [place] [address] 28989- 3919 Jan, [place] [id number] [place] [address] 66584- 9734 Jan, Upper respiratory infection J06.9 and Type 2 diabetes mellitus without complication E11.9 [place] [id number] [place] [address] 81732- 1373 Dec, [address] [id number] [place] [address] 59068- 3921 Dec, Chronic pain G89.29 ; Essential hypertension I10 ; Type 2 diabetes mellitus without complication E11.9 ; HSV (herpes simplex virus) infection B00.9 ; Anxiety F41.9 ; Upper respiratory infection J06.9 ; Hypersomnia G47.10 and Tobacco abuse Z72.0 [address] [id number] [place] [address] 16003- 0655 Dec, Encounter for Depo-Provera contraception Z30.42 [address] [id number] [place] [address] 07130- 4016 Dec, [place] [id number] [place] [address] 09498- 7191 Dec, Chronic pain G89.29 ; Sinusitis J32.9 ; Snoring R06.83 and Daytime hypersomnia G47.19 [address] [id number] [place] [address] 23928- 6897 Nov, HSV (herpes simplex virus) infection B00.9 ; Encounter for Papanicolaou smear for cervical cancer screening Z12.4 ; Screening for STD sexually transmitted disease Z11.3 and Bartholin's gland cyst N75.0 [facility] [id number] [place] [address] 60776- 8898 Nov, [facility] [id number] [place] [address] 76572- 8015 Nov, [facility] [id number] [place] [address] 00106- 6687 Nov, Essential hypertension I10 ; Type 2 diabetes mellitus without complication E11.9 ; HSV (herpes simplex virus) infection B00.9 ; Spinal stenosis, lumbar region M48.06 and Vaginal yeast infection B37.3 [place] [id number] [place] [address] 42669- 1959 Nov, [place] [id number] [place] [address] 62086- 8687 Nov, [place] [id number] [place] [address] 35976- 3458 Oct, [place] [id number] [place] [address] 14468- 9093 Oct, HSV (herpes simplex virus) infection B00.9 ; Yeast infection B37.9 ; Change in bowel habit R19.4 ; Nausea & vomiting R11.2 and Gastroesophageal reflux disease without esophagitis K21.9 [place] [id number] [place] [address] 70690- 8482 Oct, [facility] [id number] [place] [address] 71666- 7857 Oct, Type 2 diabetes mellitus without complication E11.9 ; Essential hypertension I10 and Acute maxillary sinusitis, recurrence not specified J01.00 [place] [id number] [place] [address] 63080- 5743 Oct, [facility] [id number] [place] [address] 72011- 0626 Oct, [facility] [address] 85350- 6306 Oct, Exposure to head lice Z20.7 ; Blood glucose abnormal R73.09 ; Boil of buttock L02.32 and Type 2 diabetes mellitus without complication E11.[address] 08419- 9213 Oct, [address] 04795- 5536 Sep, [address] 20923- 8813 Sep, [address] 88791- 7114 Aug, Encounter for Depo-Provera contraception Z30.[address] 00030- 8424 Aug, Anxiety F41.9 ; Spinal stenosis, lumbar region M48.06 ; Radiculopathy of lumbar region M54.16 ; Asthma J45.909 ; GERD (gastroesophageal reflux disease) K21.9 ; Essential hypertension I10 and Long-term use of high- risk medication Z79.[address] 32146- 2622 Jul, [address] 47495- 2143 Jun, Hemorrhoid 455.[address] 57986- 2549 Jun, [address] 39633- 6940 Jun, Anxiety 300.00 ; Asthma 493.90 ; Hyperhidrosis 705.21 ; Chest discomfort 786.59 and Upper respiratory infection 465.[address] 64826- 3758 May, Encounter for Depo-Provera contraception V25.49 [place] [id number] [place] [address] 19701- 4411 May, [place] [address] 23818- 1335 May, [place] [address] 91217- 2427 May, Spinal stenosis of lumbar region with radiculopathy 724.02 ; Bulging of intervertebral disc between L4 and L5 722.10 ; GERD ( gastroesophageal reflux disease) 530.81 ; Chronic pain 338.29 ; Declining mobility 799.89 and Epigastric pain 789.06 [place] [address] 19937- 2087 Apr, [place] [address] 03083- 7217 Apr, Nausea 787.02 and Heart burn 787.1 [place] [address] 94781- 0785 Mar, Lumbago 724.2 ; Vitamin D deficiency 268.9 ; Anxiety 300.00 ; Allergic rhinitis 477.9 and Contraceptive surveillance V25.40 [place] [id number] [place] [address] 92344- 5761 February, 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 ; Chronic pain 338.29 and Vaginal discharge 623.5 [place] [id number] [place] [address] 24305- 5871 February, [place] [id number] [place] [address] 17238- 4890 February, [place] [address] 42926- 0327 Jan, [place] [id number] [place] [address] 13524- 2348 Jan, [place] [address] 01127- 5843 Dec, [facility] [place] [facility] [address] [id number] [place] [address]- 1498 Dec, [facility] [place] [facility] [address] [id number] [place] [address]- 1025 Dec, [facility] [place] [facility] [address] [id number] [place] [address]- 6275 Dec, [facility] [place] [facility] [address] [id number] [place] [address]- 5700 Dec, [facility] [place] [facility] [address] [id number] [place] [address]- 0325 Dec, [facility] [place] [facility] [address] [id number] [place] [address]- 6567 Dec, [facility] [place] [facility] [address] [facility] [id number] [place] [address]- 1432 Dec, [facility] [place] [facility] [address] [id number] [place] [address]- 0023 Dec, [facility] [place] [facility] [address] [id number] [place] [address]- 7168 Dec, [facility] [place] [facility] [address] [facility] [id number] [place] [address]- 7099 Dec, [facility] [place] [facility] [address] [id number] [place] [address]- 9667 Dec, [facility] [place] [facility] [address] [id number] [place] [address]- 9951 Nov, [facility] [place] [facility] [address] [id number] [place] [address]- 7041 Nov, [facility] [place] [facility] [address] [id number] [place] [address]- 1141 Nov, [facility] [place] [facility] [address] [facility] [id number] [place] [address]- 3571 Nov, [facility] [place] [facility] [address] [id number] [place] [address] 2549 23 Nov, 2014 [facility] [place] [facility] [address] [id number] [place] [address] 2546 23 Nov, 2014 [facility] [place] [facility] [address] [id number] [place] [address] 2546 16 Nov, 2014 [facility] [place] [facility] [address] [id number] [place] [address] 2546 16 Nov, 2014 [facility] [place] [facility] [address] [id number] [place] [address] 2546 13 Nov, 2014 [facility] [place] [facility] [address] [id number] [place] [address] 2546 13 Nov, 2014 [facility] [place] [facility] [address] [facility] [id number] [place] [address] 13 Nov, 2014 [facility] [place] [facility] [address] [id number] [place] [address] 13 Nov, 2014 [facility] [place] [facility] [address] [id number] [place] [address] 13 Nov, 2014 [facility] [place] [facility] [address] [facility] [id number] [place] [address] 13 Nov, 2014 [facility] [place] [facility] [address] [facility] [id number] [place] [address] 13 Nov, 2014 [facility] [place] [facility] [address] [id number] [place] [address]46 13 Nov, 2014 [facility] [place] [facility] [address] [id number] [place] [address] 10 Nov, 2014 [facility] [place] [facility] [address] [id number] [place] [address] 10 Nov, 2014 [facility] [place] [facility] [address] [facility] [id number] [place] [address] 09 Nov, 2014 [facility] [place] [facility] [address] [id number] [place] [address] Nov, 2014 [facility] [place] [facility] [address] [id number] [place] [address] Nov, 2014 [facility] [place] [facility] [address] [id number] [place] [address] Nov, 2014 [facility] [place] [facility] [address] [id number] [place] [address] Nov, [facility] [place] [facility] [address] [id number] [place] [address] Oct, [facility] [place] [facility] [address] [id number] [place] [address] Oct, [facility] [place] [facility] [address] [id number] [place] [address] Oct, [facility] [place] [facility] [address] [id number] [place] [address] Oct, [facility] [place] [facility] [address] [id number] [place] [address] Oct, [facility] [place] [facility] [address] [id number] [place] [address] Oct, [facility] [place] [facility] [address] [id number] [place] [address] Oct, [facility] [place] [facility] [address] [id number] [place] [address] Oct, [facility] [place] [facility] [address] [id number] [place] [address] Oct, [facility] [place] [facility] [address] [id number] [place] [address] Oct, [facility] [place] [facility] [address] [id number] [place] [address] 8[address] Oct, [facility] [place] [facility] [address] [id number] [place] [address] 4[address] Oct, [facility] [place] [facility] [address] [id number] [place] [address] 5800 Oct, [facility] [place] [facility] [address] [id number] [place] [address] 9028 Oct, [facility] [place] [facility] [address] [id number] [place] [address]- 1281 Oct, [facility] [place] [facility] [address] [id number] [place] [address]- 5364 Oct, [facility] [place] [facility] [address] [id number] [place] [address]- 4385 Oct, [facility] [place] [facility] [address] [id number] [place] [address] 7213 Oct, [facility] [place] [facility] [address] [id number] [place] [address]- 0684 Oct, [facility] [place] [facility] [address] [id number] [place] [address]- 3382 Oct, [facility] [place] [facility] [address] [id number] [place] [address]- 7673 Oct, [facility] [place] [facility] [address] [id number] [place] [address]- 5050 Sep, [facility] [place] [facility] [address] [id number] [place] [address]- 9584 29 Sep, 2014 [facility] [place] [facility] [address] [id number], [place] [address]- [address] 18 Sep, 2014 [facility] [place] [facility] [address] [id number] [place] [address]- 5213 18 Sep, 2014 [facility] [place] [facility] [address] [id number] [place] [address]- 5926 Sep, [facility] [place] [facility] [address] [id number] [place] [address]- 2072 Sep, [facility] [place] [facility] [address] [id number] [place] [address]- 5149 15 Sep, 2014 [facility] [address] [id number] [place] [address]- 9846 15 Sep, 2014 [facility] [place] [facility] [address] [id number] [place] [address]- 8746 12 Sep, 2014 [facility] [address] [id number] [place] [address]- 0986 12 Sep, 2014 [facility] [place] [facility] [address] [id number] [place] [address]- 1286 11 Sep, 2014 [facility] [place] [facility] [address] [id number] [place] [address]- 8623 Sep, [facility] [place] [facility] [address] [id number] [place] [address]- 3576 Sep, [facility] [address] [id number] [place] [address]- 0910 Sep, [facility] [place] [facility] [address] [id number] [place] [address]- 7727 Sep, [facility] [place] [facility] [address] [id number] [place] [address]- 3692 Sep, [facility] [address] [id number] [place] [address]- 7851 10 Sep, 2014 [facility] [place] [facility] [address] [id number] [place] [address]- 1801 Sep, [facility] [place] [facility] [address] [id number] [place] [address]- 2511 Sep, [facility] [place] [facility] [address] [id number] [place] [address]- 2281 Sep, [facility] [place] [facility] [address] [id number] [place] [address]- 2431 Aug, [facility] [place] [facility] [address] [id number] [place] [address]- 4569 Aug, [facility] [place] [facility] [address] [id number] [place] [address]- 4851 Aug, [facility] [place] [facility] [address] [id number] [place] [address]- 3654 Aug, [facility] [place] [facility] [address] [id number] [place] [address]- 2432 Aug, [facility] [place] [facility] [address] [id number] [place] [address]- 3962 Aug, [facility] [place] [facility] [address] [id number] [place] [address]- 9018 Aug, [facility] [place] [facility] [address] [id number] [place] [address]- 7738 Aug, [facility] [place] [facility] [address] [id number] [place] [address]- 4038 Aug, [facility] [place] [facility] [address] [id number] [place] [address]- 0269 Jul, [facility] [place] [facility] [address] [id number] [place] [address]- 6510 Jul, [facility] [place] [facility] [address] [id number] [place] [address]- 4562 Jul, [facility] [place] [facility] [address] [id number] [place] [address]- 6003 Jul, [facility] [place] [facility] [address] [id number], [place] [address]- 7516 Jul, [facility] [place] [facility] [address] [id number] [place] [address]- 4926 Jul, [facility] [place] [facility] [address] [id number] [place] [address]- 1529 Jul, [facility] [place] [facility] [address] [id number], [place] [address]- 5557 Jul, [facility] [place] [facility] [address] [id number], [place] [address]- 6151 Jul, [facility] [place] [facility] [address] [id number] [place] [address]- 1627 10 Jul, 2014 [facility] [place] [facility] [address] [id number] [place] [address]- 4696 Jul, [facility] [place] [facility] [address] [id number] [place] [address]- 0411 Jul, [facility] [place] [facility] [address] [id number] [place] [address]- 6406 Jul, [facility] [place] [facility] [address] [id number] [place] [address]- 4995 Jul, [facility] [place] [facility] [address] [id number] [place] [address]- 9895 30 Jun, 2013 [facility] [place] [facility] [address] [id number] [place] [address]- 7163 30 Jun, 2013 [facility] [place] [facility] [address] [id number] [place] [address]- 2548 25 Jun, 2013 [facility] [place] [facility] [address] [id number] [place] [address] 2548 25 Jun, 2013 [facility] [place] [facility] [address] [id number] [place] [address] 2547 25 Jun, 2013 [facility] [place] [facility] [address] [id number] [place] [address] 2544 25 Jun, 2013 [facility] [place] [facility] [address] [id number] [place] [address]- 2542 24 Jun, 2013 [facility] [place] [facility] [address] [id number] [place] [address] 2546 24 Jun, 2013 [facility] [place] [facility] [address] [id number] [place] [address]- 2543 22 Jun, 2013 [facility] [place] [facility] [address] [id number] [place] [address]- 2540 22 Jun, 2013 [facility] [place] [facility] [address] [id number] [place] [address]- 8985 17 Sep, 2013 [facility] [place] [facility] [address] [id number] [place] [address]- 7346 17 Sep, 2013 [facility] [place] [facility] [address] [id number] [place] [address]- 2546 16 Sep, 2013 [facility] [place] [facility] [address] [id number] [place] [address] 2546 16 Sep, 2013 [facility] [place] [facility] [address] [id number] [place] [address]- 2547 15 Sep, 2013 [facility] [place] [facility] [address] [id number] [place] [address]- 4879 15 Sep, 2013 [facility] [place] [facility] [address] [id number] [place] [address]- 1097 12 Sep, 2013 [facility] [place] [facility] [address] [id number] [place] [address]- 2540 12 Sep, 2013 [facility] [place] [facility] [address] [id number] [place] [address]- 2543 11 Sep, 2013 [facility] [place] [facility] [address] [id number] [place] [address] 2543 11 Sep, 2013 [facility] [place] [facility] [address] [id number] [place] [address]- 8575 11 Sep, 2013 [facility] [place] [facility] [address] [id number] [place] [address]- 2541 11 Sep, 2013 [facility] [place] [facility] [address] [id number] [place] [address] 2548 09 Sep, 2013 [facility] [place] [facility] [address] [id number] [place] [address] 2546 09 Sep, 2013 [facility] [place] [facility] [address] [id number] [place] [address]- 2546 03 Sep, 2013 [facility] [place] [facility] [address] [id number] [place] [address]- 7171 Jun, [facility] [place] [facility] [address] [id number] [place] [address]- 5975 May, [facility] [place] [facility] [address] [id number] [place] [address]- 0660 May, [facility] [place] [facility] [address] [id number] [place] [address]- 1231 May, [facility] [place] [facility] [address] [id number] [place] [address]- 1285 May, [facility] [place] [facility] [address] [id number] [place] [address]- 1393 May, [facility] [place] [facility] [address] [id number] [place] [address]- 9280 May, [facility] [place] [facility] [address] [id number] [place] [address]- 4066 May, [facility] [place] [facility] [address] [id number] [place] [address]- 1610 May, [facility] [place] [facility] [address] [id number] [place] [address]- 4987 May, [facility] [place] [facility] [address] [id number] [place] [address]- 1230 May, [facility] [place] [facility] [address] [id number] [place] [address]- 1563 May, [facility] [place] [facility] [address] [id number] [place] [address]- 3150 May, [facility] [place] [facility] [address] [id number] [place] [address]- 2352 May, [facility] [place] [facility] [address] [id number] [place] [address]- 9019 Apr, [facility] [place] [facility] [address] [id number] [place] [address]- 6365 Apr, [facility] [place] [facility] [address] [id number] [place] [address]- 6648 Apr, [facility] [place] [facility] [address] [id number] [place] [address]- 7994 Apr, [facility] [place] [facility] [address] [id number] [place] [address]- 1875 Apr, [facility] [place] [facility] [address] [id number] [place] [address]- 9929 Mar, [facility] [place] [facility] [address] [id number] [place] [address]- 2545 Mar, [facility] [place] [facility] [address] [id number] [place] [address]- 1807 Mar, [facility] [place] [facility] [address] [id number] [place] [address]- 5734 February, [facility] [place] [facility] [address] [id number] [place] [address]- 8531 February, [facility] [place] [facility] [address] [id number] [place] [address]- 4317 February, [facility] [place] [facility] [address] [id number] [place] [address]- 3732 February, [facility] [place] [facility] [address] [id number] [place] [address]- 4167 February, [facility] [place] [facility] [address] [id number] [place] [address]- 2186 February, [facility] [place] [facility] [address] [id number] [place] [address]- 4596 February, [facility] [place] [facility] [address] [id number] [place] [address]- 9898 February, [facility] [place] [facility] [address] [id number] [place] [address]- 7247 February, [facility] [place] [facility] [address] [id number] [place] [address]- 8735 Jan, [facility] [place] [facility] [address] [id number] [place] [address]- 4015 Jan, [facility] [place] [facility] [address] [id number] [place] [address]- 2739 Jan, [facility] [place] [facility] [address] [id number] [place] [address]- 3917 Jan, [facility] [place] [facility] [address] [id number] [place] [address]- 7597 Jan, [facility] [place] [facility] [address] [id number] [place] [address]- 1695 Dec, [facility] [place] [facility] [address] [id number] [place] [address]- 4364 Dec, [facility] [place] [facility] [address] [id number] [place] [address]- 2066 Dec, [facility] [place] [facility] [address] [id number] [place] [address]- 4038 Dec, [facility] [place] [facility] [address] [id number] [place] [address]- 7180 Dec, [facility] [place] [facility] [address] [id number] [place] [address]- 8731 Nov, [facility] [place] [facility] [address] [id number] [place] [address]- 4558 Nov, [facility] [place] [facility] [address] [id number] [place] [address]- 8498 Nov, [facility] [place] [facility] [address] [id number] [place] [address]- 9239 Nov, [facility] [place] [facility] [address] [id number] [place] [address]- 3265 Oct, [facility] [place] [facility] [address] [id number] [place] 3897 Oct, [facility] [place] [facility] [address] [id number], [place] [address]- 6037 Oct, [facility] [place] [facility] [address] [id number] [place] [address]- 5323 Oct, [facility] [place] [facility] [address] [id number] [place] [address]- 4447 Oct, [facility] [place] [facility] [address] [id number] [place] [address]- 6594 Oct, [facility] [place] [facility] [address] [id number] [place] [address]- 0993 Oct, [facility] [place] [facility] [address] [id number] [place] [address]- 9094 Oct, [facility] [place] [facility] [address] [id number] [place] [address]- 5289 Oct, [facility] [place] [facility] [address] [id number] [place] [address]- 2482 Oct, [facility] [place] [facility] [address] [id number] [place] [address]- 0744 Aug, [facility] [place] [facility] [address] [id number] [place] [address]- 9743 Aug, [facility] [place] [facility] [address] [id number], [place] [address]- 3442 Jul, [facility] [place] [facility] [address] [id number], [place] [address]- 0295 Jul, [facility] [place] [facility] [address] [id number], [place] [address]- 8513 Jul, [facility] [place] [facility] [address] [id number], [place] [address]- 1924 Jul, [facility] [place] [facility] [address] [id number], [place] [address]- 5705 Jul, [facility] [place] [facility] [address] [id number] [place] [address]- 7238 Jul, [facility] [place] [facility] [address] [id number] [place] [address]- 3491 Apr, [facility] [address] [id number] [place] [address]- 5333 Dec, [facility] [place] [facility] [address] [id number] [place] [address]- 4346 Nov, [facility] [place] [facility] [address] [id number] [place] [address]- 1206 Nov, [facility] [place] [facility] [address] [id number] [place] [address] 2547 Nov, [facility] [place] [facility] [address] [id number] [place] [address]- 5596 Oct, [facility] [place] [facility] [address] [id number] [place] [address]- 0270 Sep, [facility] [place] [facility] [address] [id number] [place] [address]- 8687 Sep, [facility] [place] [facility] [address] [id number] [place] [address]- 4441 Sep, [facility] [place] [facility] [address] [id number] [place] [address]- 9278 Sep, [facility] [place] [facility] [address] [id number] [place] [address]- 7903 Aug, [facility] [place] [facility] [address] [id number] [place] [address]- 2909 Aug, [facility] [place] [facility] [address] [id number] [place] [address]- 6130 Jul, [facility] [place] [facility] [address] [id number] [place] 1239 Jul, [facility] [place] [facility] [address] [id number] [place] [address] 2541 28 Jun, 2012 [facility] [place] [facility] [address] [id number] [place] [address]- 7128 26 Jun, 2012 [facility] [place] [facility] [address] [id number] [place] [address]- 8456 24 Jun, 2012 [facility] [place] [facility] [address] [id number] [place] [address]- 1656 24 Jun, 2012 [facility] [place] [facility] [address] [id number] [place] [address]- 9066 Jun, [facility] [place] [facility] [address] [id number] [place] [address]- 1737 31 Apr, 2012 [facility] [place] [facility] [address] [id number] [place] [address]- 4796 30 Apr, 2012 [facility] [place] [facility] [address] [id number] [place] [address]- 8848 Apr, [facility] [place] [facility] [address] [id number] [place] [address]- 8076 Mar, [facility] [place] [facility] [address] [id number] [place] [address]- 8708 Mar, [facility] [place] [facility] [address] [id number] [place] [address]- 8510 Mar, [facility] [place] [facility] [address] [id number] [place] [address]- 6917 February, [facility] [place] [facility] [address] [id number] [place] [address]- 0510 Jan, [facility] [place] [facility] [address] [id number], [place] [address]- 2296 Dec, [facility] [place] [facility] [address] [id number] [place] [address]- 6582 Dec, [facility] [place] [facility] [address] [id number] [place] [address]- 3850 Dec, [facility] [place] [facility] [address] [id number] [place] [address]- 3248 Dec, [facility] [place] [facility] [address] [id number] [place] [address]- 0942 12 Dec, 2011 [facility] [address] [id number] [place] [address]- 3796 14 Nov, 2011 [facility] [address] [id number] [place] [address]- 5226 13 Nov, 2011 [facility] [address] [id number] [place] [address]- 8614 Oct, [facility] [address] [id number] [place] [address]- 7122 Oct, [facility] [id number] [place] [address], [place] [address]- 8551 Oct, [facility] [address] [id number] [place] [address]- 4711 Sep, [facility] [address] [id number] [place] [address]- 1898 Aug, [facility] [address] [id number] [place] [address]- 7054 Aug, [facility] [address] [id number] [place] [address]- 3325 28 Jul, 2011 [facility] [address] [id number] [place] [address]- 1724 24 Jul, 2011 [facility] [address] [id number] [place] [address]- 2547 19 Jul, 2011 [facility] [address] [id number] [place] [address]- 5878 13 Jan, 2011 [facility] [place] [facility] [address] [id number] [place] [address] 29 Sep, 2010 [facility] [place] [facility] [address] [id number] [place] [address] 27 Sep, 2010 [facility] [address] [id number] [place] [address] Sep, [facility] [place] [facility] [address] [id number] [place] [address] Sep, [facility] [place] [facility] [address] [id number] [place] [address] Sep, [facility] [place] [facility] [address] [id number] [place] [address] Aug, [facility] [place] [facility] [address] [id number] [place] [address] 16 Aug, 2010 [facility] [place] [facility] [address] [id number] [place] [address] 08 Aug, 2010 [facility] [place] [facility] [address] [id number] [place] [address] Jul, [facility] [place] [facility] [address] [id number] [place] [address] Jul, [facility] [place] [facility] [address] [id number], [place] [address] Jul, [facility] [place] [facility] [address] [id number] [place] [address] May, [facility] [place] [facility] [address] [id number], [place] [address] Apr, [facility] [place] [facility] [address] [id number], [place] [address] Dec, [facility] [place] [facility] [address] [id number], [place] [address] 17 Sep, 2009 [facility] [place] [facility] [address] [id number] [place] [address] 17 Sep, 2009 [facility] [place] [facility] [address] [id number], [place] [address] Aug, [facility] [place] [facility] [address] [id number], [place] [address] 11 Aug, 2009 [facility] [place] [facility] [address] [id number], [place] [address] Jul, [facility] [address] [facility] [id number] [place] [address] Mar, IMMUNIZATIONS No Known Immunizations SOCIAL HISTORY Never Assessed REASON FOR VISIT Test Strips and Lancets PLAN OF CARE VITAL SIGNS MEDICATIONS Medication Instructions Dosage Frequency Start Date End Date Duration Status OneTouch Verio - In Vitro twice a day DX: E11.9 test blood sugar Jun, Active OneTouch Lancets - as directed Jun, Active RESULTS No Results PROCEDURES No [...]
[2018-10-08] MEDS ORDERED: LIDOCAINE 2% VISCOUS 15 ML UDC PO ONE (20:45)
[2018-10-08] MEDS ORDERED: ANTACID SUSP 30 ML UDC (MYLANTA) PO ONE (20:45)
[2018-10-08] MEDS ORDERED: FAMOTIDINE 20MG/2ML IV (PEPCID) IVP ONE (20:45)
[2018-10-08] MEDS ORDERED: ONDANSETRON 4 MG/2 ML (SDV) Z0FRAN IVP ONE (20:45)
--- OUTSIDE RECORDS SUMMARY | 2018-10-08 20:46 | XMS REPORT ---
Author Author JENNY WOLF [facility] Address [address] [place] [address] Care Team Providers Care Shooter'S Helper Name Role Phone JENNY WOLF Unavailable PROBLEMS Type Condition ICD9-CM Code CHU76-XB Code Onset Dates Condition Status SNOMED Code Problem Chronic pain G89.29 Active 26739404 Problem HSV (herpes simplex virus) infection B00.9 Active 11575036 Problem Gastroesophageal reflux disease without esophagitis K21.9 Active 794244831 Problem Type 2 diabetes mellitus with diabetic neuropathy, unspecified E11.40 Active 50190155 Problem long term 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 Z79.4 Active 051777065 Problem Edema of both feet R60.0 Active 278207334 Problem Tobacco abuse Z72.0 Active 11170682 Problem Chronic migraine G43.709 Active 75336771 Problem Mixed hyperlipidemia E78.2 Active 679556042 Problem Spinal stenosis, lumbar region M48.06 Active 26254534 Problem Anxiety F41.9 Active 94249556 Problem Radiculopathy of lumbar region M54.16 Active 546640412 Problem Bulging lumbar disc M51.26 Active 221268706 Problem Asthma J45.909 Active 831029676 Problem Essential hypertension I10 Active 68642231 ALLERGIES No Information ENCOUNTERS Encounter Location Date Diagnosis [facility] [id number] [address] Jan, [facility] [address], [place] [address] Jan, [facility] [id number] [place] [address] 96616- 2566 Dec, [facility] [id number], [place] [address] Dec, Gastroesophageal reflux disease without esophagitis K21.9 and Anxiety F41.9 [facility] [id number] [place] [address] 06569- 9019 14 Dec, 2017 Essential hypertension I10 ; Mixed hyperlipidemia E78.2 ; Type 2 diabetes mellitus with diabetic neuropathy, unspecified E11.40 ; skilled nursing 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 Z79.4 ; Chronic pain G89.29 ; HSV (herpes simplex virus) infection B00.9 ; Anxiety F41.9 and Gastroesophageal reflux disease without esophagitis K21.9 [facility] [address] 96258- 8328 07 Dec, 2017 Chronic pain G89.29 and Chronic migraine G43.709 [facility] [address] 51087- 0986 Nov, [facility] [address] 51943- 0309 08 Nov, 2017 Essential hypertension I10 and Chronic pain G89.29 [facility] [facility] [address] 68080- 8259 05 Nov, 2017 Chronic pain G89.29 ; Essential hypertension I10 and Type 2 diabetes mellitus without complication E11.9 [facility] [address] 82631- 5914 Oct, Chronic pain G89.29 [facility] [id number] [place] [address] 03624- 7501 Oct, [facility] [address] 57607- 1022 Sep, Type 2 diabetes mellitus without complication E11.9 ; Essential hypertension I10 ; skilled nursing (current) use of insulin Z79.4 ; Chronic migraine G43.709 ; Chronic pain G89.29 and Acute non-recurrent maxillary sinusitis J01.00 [facility] [id number] [place] [address] 30364- 1578 Sep, Encounter for Depo-Provera contraception Z30.42 [facility] [address] [place] [address]- 3682 Sep, Chronic pain G89.29 and Radiculopathy of lumbar region M54.16 [facility] [id number] [address] 3089 Sep, [facility] [id number] [place] [address] 31471- 1663 Sep, [facility] [id number] [place] [address] 50416- 8246 Aug, Type 2 diabetes mellitus without complication E11.9 [facility] [id number] [place] [address] 81368- 9736 Aug, [facility] [id number] [place] [address] 72462- 7982 Aug, Radiculopathy of lumbar region M54.16 and Chronic pain G89.29 [facility] [id number] [place] [address] 99879- 6405 Aug, Type 2 diabetes mellitus without complication E11.9 [facility] [address] [place] [address] 52902- 8927 Aug, Type 2 diabetes mellitus without complication E11.9 [facility] [address] [place] [address] 62524- 1203 Jul, Type 2 diabetes mellitus without complication E11.9 [facility] [id number] [place] [address] 16684- 6100 Jul, [facility] [id number] [place] [address] 77182- 4034 Jul, Chronic pain G89.29 [facility] [id number] [address] 7771 Jul, [facility] [id number] [place] [address] 77342- 9670 Jul, [facility] [id number] [place] [address] 29927- 0557 Jul, Type 2 diabetes mellitus without complication E11.9 [facility] [id number] [place] [address] 03260- 5788 Jul, [facility] [id number] [place] [address] 64611- 8445 Jul, Type 2 diabetes mellitus without complication E11.9 [facility] [address] 71266- 9146 Jul, [facility] [id number] [place] [address] 49929- 9685 Jul, [facility] [id number] [place] [address] 40083- 9675 Jul, [facility] [id number] [place] [address] 14521- 6222 Jun, Type 2 diabetes mellitus without complication E11.9 [facility] [id number] [place] [address] 98584- 8128 Jun, Chronic migraine G43.709 ; Type 2 diabetes mellitus without complication E11.9 ; Calculus of right kidney N20.0 ; Yeast dermatitis B37.2 and HSV (herpes simplex virus) infection B00.9 [facility] [id number] [place] [address] 29047- 7777 Jun, Type 2 diabetes mellitus without complication E11.9 [facility] [id number] [place] [address] 82420- 8276 Jun, [facility] [id number] [place] [address] 96792- 0026 Jun, Radiculopathy of lumbar region M54.16 and Chronic pain G89.29 [facility] [id number] [place] [address] 01505- 8049 Jun, Encounter for Depo-Provera contraception Z30.42 [facility] [id number] [place] [address] 46405- 0590 Jun, Type 2 diabetes mellitus without complication E11.9 [facility] [id number] [place] [address] 95471- 0590 Jun, [facility] [id number] [place] [address] 99334 -4983 May, Acute nasopharyngitis (common cold) J00 [facility] [address] 63886- 5868 May, Chronic pain G89.29 [facility] [address] 14975- 2944 May, Headache following lumbar puncture G97.1 [facility] [place] [address] 10879- 8661 May, Radiculopathy of lumbar region M54.16 [facility] [address] 99137- 0128 Apr, [facility] [id number] [place] [address] 22852- 2729 Apr, Type 2 diabetes mellitus without complication E11.9 ; Chronic pain G89.29 ; Essential hypertension I10 ; Radiculopathy of lumbar region M54.16 ; Spinal stenosis, lumbar region M48.06 ; Gastroesophageal reflux disease without esophagitis K21.9 ; HSV (herpes simplex virus) infection B00.9 ; Mixed hyperlipidemia E78.2 ; Anxiety F41.9 and Asthma J45.909 [facility] [id number] [place] [address] 80943- 1605 Apr, Encounter for Depo-Provera contraception Z30.[address] 41136- 6191 Apr, Chronic pain G89.29 and Anxiety F41.9 [id number] [place] [address] 71256- 2366 Mar, [address] [place] [address]- 4025 Mar, [facility] [id number] [place] [address] 81692- 8139 Mar, Mixed hyperlipidemia E78.2 [facility] [id number] [place] [address] 55396- 7207 Mar, Type 2 diabetes mellitus without complication E11.9 ; Chronic pain G89.29 ; Essential hypertension I10 ; Radiculopathy of lumbar region M54.16 ; Spinal stenosis, lumbar region M48.06 ; Gastroesophageal reflux disease without esophagitis K21.9 ; HSV (herpes simplex virus) infection B00.9 ; Mixed hyperlipidemia E78.2 and Anxiety F41.9 [facility] [id number] [place] [address] 34723- 6186 Mar, [facility] [id number] [place] [address] 71320- 7861 Mar, [facility] [id number] [place] [address] 82980- 5019 Mar, [facility] [id number] [place] [address] 67858- 8279 February, Chronic pain G89.29 [facility] [id number] [place] [address] 39348- 3340 February, [facility] [id number] [place] [address] 63805- 5607 Jan, Chronic pain G89.29 [facility] [id number] [place] [address] 38313- 0089 Jan, Type 2 diabetes mellitus without complication E11.9 [facility] [id number] [place] [address] 13557- 4259 Jan, [facility] [id number] [place] [address] 00110- 2233 Jan, [facility] [id number] [place] [address] 85680- 7437 Jan, [facility] [id number] [place] [address] 02897- 8347 Jan, Type 2 diabetes mellitus without complication [...] J01.00 and Encounter for Depo-Provera contraception Z30.42 [facility] [place] [id number] [place] [address] 96688- 1724 Dec, Chronic pain G89.29 [id number] [place] [address] 20634- 7341 Dec, Abnormal ankle brachial index (BERNARDINO) R68.89 [facility] [place] [id number] [place] [address] 37610- 4444 Dec, [id number] [place] [address] 83353- 7351 Dec, Routine gynecological examination Z01.419 ; Chronic [...] B00.9 and Allergic rhinitis 477.9 [id number] [place] [address] 19693- 3256 Nov, Chronic pain G89.29 [id number] [place] [address] 48965- 1046 02 Nov, 2016 Chronic pain G89.29 ; [...] mucoid otitis media of both ears H65.113 [place] [address] 96981- 6665 Oct, [facility] [address] 20276- 6407 Oct, Chronic pain G89.29 [facility] [place] [address] 74616- 2007 Oct, Chronic pain G89.29 [facility] [id number] [place] [address] 26741- 8876 Sep, Chronic pain G89.29 ; Type 2 diabetes mellitus without complication E11.9 ; Essential hypertension I10 ; Radiculopathy of lumbar region M54.16 ; Spinal stenosis, lumbar region M48.06 ; Gastroesophageal reflux disease without esophagitis K21.9 ; Encounter for surveillance of injectable contraceptive Z30.42 ; Bilateral cold feet R20.9 ; Pain of left foot M79.672 and Pain in right foot M79.671 [facility] [place] [id number] [place] [address] 01402- 5350 Sep, [facility] [id number] [place] [address] 18480- 8663 Aug, [facility] [id number] [place] [address] 17264- 3868 Aug, [facility] [id number] [place] [address] 46670- 1446 Aug, Chronic pain G89.29 ; Type 2 diabetes mellitus without complication E11.9 ; Essential hypertension I10 ; Rash and nonspecific skin eruption R21 and Upper respiratory infection, acute J06.9 [place] [id number] [place] [address] 39408- 8210 08 Aug, 2016 [facility] [address] 03288- 8649 Aug, [facility] [id number] [place] [address] 70394- 2905 Jul, [facility] [address] 23069- 4831 05 Jul, 2016 Dysuria R30.0 ; Encounter for Depo-Provera contraception Z30.42 ; Herpes simplex B00.9 ; Nausea & vomiting R11.2 and Asthma J45.909 [facility] [address] 22169- 9384 21 Jun, 2016 Dysuria R30.0 [facility] [address] 58967- 2719 19 Jun, 2016 Dysuria R30.0 [facility] [address] 70697- 1595 15 Jun, 2016 [facility] [address] 44606- 6379 13 Jun, 2016 [facility] [id number] [place] [address] 26028- 3831 May, [facility] [address] 85827- 2266 May, [facility] [id number] [place] [address] 18312- 9825 May, Chronic pain G89.29 ; Essential hypertension I10 ; Type 2 diabetes mellitus without complication E11.9 ; Edema of both feet R60.0 and Rash and nonspecific skin eruption R21 [facility] [id number] [place] [address] 03204- 1871 Apr, [facility] [address] 65965- 4111 Mar, Carpal tunnel syndrome, left upper limb G56.02 and Carpal tunnel syndrome, right upper limb G56.01 [facility] [place] [id number] [place] [address] 29297- 4067 Mar, [facility] [id number] [place] [address] 88347- 0893 17 Mar, 2016 Encounter for Depo-Provera contraception Z30.42 [facility] [address] 27855- 0258 February, [facility] [address] 17530- 9499 February, [place] [address] 63486- 1211 February, Chronic pain G89.29 ; Essential hypertension I10 ; Type 2 diabetes mellitus without complication E11.9 ; HSV (herpes simplex virus) infection B00.9 ; Anxiety F41.9 ; Hypersomnia G47.10 ; Tobacco abuse Z72.0 ; Hand pain, left M79.642 ; Hand pain, right M79.641 ; Left foot pain M79.672 and Heart palpitations R00.2 [facility] [id number] [place] [address] 45642- 2329 Jan, [facility] [place] [id number] [place] [address] 65146- 7033 Jan, [facility] [place] [id number] [place] [address] 53254- 7161 Jan, [facility] [id number] [place] [address] 82049- 3271 Jan, [facility] [place] [id number] [place] [address] 27728- 9059 14 Jan, 2016 Upper respiratory infection J06.9 and Type 2 diabetes mellitus without complication E11.9 [facility] [id number] [place] [address] 99872- 5634 Dec, [facility] [id number] [place] [address] 18044- 7229 Dec, Chronic pain G89.29 ; Essential hypertension I10 ; Type 2 diabetes mellitus without complication E11.9 ; HSV (herpes simplex virus) infection B00.9 ; Anxiety F41.9 ; Upper respiratory infection J06.9 ; Hypersomnia G47.10 and Tobacco abuse Z72.0 [facility] [address] 81620- 5248 17 Dec, 2015 Encounter for Depo-Provera contraception Z30.42 [facility] [address] 33818- 1823 Dec, [facility] [place] [address] 74555- 8948 Dec, Chronic pain G89.29 ; Sinusitis J32.9 ; Snoring R06.83 and Daytime hypersomnia G47.19 [facility] [address] 30553- 5678 Nov, HSV (herpes simplex virus) infection B00.9 ; Encounter for Papanicolaou smear for cervical cancer screening Z12.4 ; Screening for STD sexually transmitted disease Z11.3 and Bartholin's gland cyst N75.0 [facility] [place] [id number] [place] [address] 85133- 2669 Nov, [facility] [id number] [place] [address] 17682- 5653 Nov, [facility] [id number] [place] [address] 00819- 7508 Nov, Essential hypertension I10 ; Type 2 diabetes mellitus without complication E11.9 ; HSV (herpes simplex virus) infection B00.9 ; Spinal stenosis, lumbar region M48.06 and Vaginal yeast infection B37.3 [facility] [place] [id number] [place] [address] 01293- 9049 Nov, [facility] [address] [place] [address]- 7176 Nov, [facility] [id number] [place] [address] 84277- 4885 Oct, [facility] [id number] [place] [address] 67532- 3970 Oct, HSV (herpes simplex virus) infection B00.9 ; Yeast infection B37.9 ; Change in bowel habit R19.4 ; Nausea & vomiting R11.2 and Gastroesophageal reflux disease without esophagitis K21.9 [facility] [place] [id number] [place] [address] 58351- 3273 Oct, [facility] [address] 31594- 7596 Oct, Type 2 diabetes mellitus without complication E11.9 ; Essential hypertension I10 and Acute maxillary sinusitis, recurrence not specified J01.00 [facility] [address] 69096- 0593 Oct, [facility] [id number] [place] [address] 72852- 5932 Oct, [facility] [address] 24055- 3983 Oct, Exposure to head lice Z20.7 ; Blood glucose abnormal R73.09 ; Boil of buttock L02.32 and Type 2 diabetes mellitus without complication E11.9 [facility] [place] [id number] [place] [address] 28805- 1238 Oct, [facility] [id number] [place] [address] 69088- 9546 Sep, [facility] [place] [address] 30298- 4779 Sep, [facility] [place] [id number] [place] [address] 19550- 0418 Aug, Encounter for Depo-Provera contraception Z30.42 [facility] [place] [id number] [place] [address] 19728- 5913 Aug, Anxiety F41.9 ; Spinal stenosis, lumbar region M48.06 ; Radiculopathy of lumbar region M54.16 ; Asthma J45.909 ; GERD (gastroesophageal reflux disease) K21.9 ; Essential hypertension I10 and Long-term use of high- risk medication Z79.[address] 24830- 1856 Jul, [facility] [place] [address] 67432- 8143 Jun, Hemorrhoid 455.[address] 97984- 1673 Jun, [address] 96448- 7200 Jun, Anxiety 300.00 ; Asthma 493.90 ; Hyperhidrosis 705.21 ; Chest discomfort 786.59 and Upper respiratory infection 465.[address] 74299- 8489 May, Encounter for Depo-Provera contraception V25.49 [place] [id number] [place] [address] 45477- 8316 May, [place] [id number] [place] [address] 13973- 7559 May, [address] 89292- 2524 May, Spinal stenosis of lumbar region with radiculopathy 724.02 ; Bulging of intervertebral disc between L4 and L5 722.10 ; GERD ( gastroesophageal reflux disease) 530.81 ; Chronic pain 338.29 ; Declining mobility 799.89 and Epigastric pain 789.06 [place] [id number] [place] [address] 51057- 7320 Apr, [address] [address]- 7172 Apr, Nausea 787.02 and Heart burn 787.1 [facility] [id number] [place] [address] 161288- 4374 Mar, Lumbago 724.2 ; Vitamin D deficiency 268.9 ; Anxiety 300.00 ; Allergic rhinitis 477.9 and Contraceptive surveillance V25.40 [facility] [id number] [place] [address] 083599- 7084 February, 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 ; Chronic pain 338.29 and Vaginal discharge 623.5 [facility] [id number] [place] [address] 24418- 2960 February, [facility] [id number] [place] [address] 655077- 9753 February, [facility] [id number] [place] [address] 69769- 2798 Jan, [facility] [id number] [place] [address] 36641- 2676 Jan, [facility] [id number] [place] [address] 70572595- 8208 Dec, [facility] [id number]- 8198 Dec, [facility] [id number] [place] [address] 60433018- 8169 Dec, [facility] [id number] [place] [address] 983406- 0522 Dec, [facility] [id number] [place] [address] 05446- 7943 Dec, [facility] [address] [address]- 7176 Dec, [facility] [id number] [place] [address] 61865- 2649 13 Dec, 2014 [facility] [place] [facility] [address] [id number] [place] [address]- 3940 13 Dec, 2014 [facility] [place] [facility] [address] [id number] [place] [address]- 5156 Dec, [facility] [place] [facility] [address] [id number] [place] [address]- 0413 Dec, [facility] [place] [facility] [address] [id number] [place] [address]- 3485 Dec, [facility] [place] [facility] [address] [id number] [place] [address]- 4587 Dec, [facility] [place] [facility] [address] [id number] [place] [address]- 1060 Nov, 2014 [facility] [place] [facility] [address] [id number] [place] [address]- 5519 Nov, 2014 [facility] [place] [facility] [address] [id number] [place] [address]- 5954 24 Nov, 2014 [facility] [place] [facility] [address] [id number] [place] [address] 24 Nov, 2014 [facility] [place] [facility] [address] [facility] [id number] [place] [address] 23 Nov, 2014 [facility] [place] [facility] [address] [id number] [place] [address] 23 Nov, 2014 [facility] [place] [facility] [address] [id number] [place] [address] 16 Nov, 2014 [facility] [place] [facility] [address] [id number] [place] [address] 16 Nov, 2014 [facility] [place] [facility] [address] [facility] [id number] [place] [address] 13 Nov, 2014 [facility] [place] [facility] [address] [facility] [id number] [place] [address] 13 Nov, 2014 [facility] [place] [facility] [address] [id number] [place] [address] Nov, 2014 [facility] [place] [facility] [address] [id number] [place] [address] Nov, 2014 [facility] [place] [facility] [address] [id number] [place] [address] Nov, 2014 [facility] [place] [facility] [address] [id number] [place] [address] Nov, 2014 [facility] [place] [facility] [address] [id number] [place] [address] Nov, 2014 [facility] [place] [facility] [address] [id number] [place] [address]- [address] Nov, 2014 [facility] [place] [facility] [address] [facility] [id number] [place] [address]- [address] Nov, 2014 [facility] [place] [facility] [address] [id number] [place] [address]- [address] Nov, 2014 [facility] [place] [facility] [address] [id number] [place] [address] Nov, 2014 [facility] [place] [facility] [address] [facility] [id number] [place] [address]- 70[address] Nov, 2014 [facility] [place] [facility] [address] [facility] [id number] [place] [address] Nov, 2014 [facility] [place] [facility] [address] [id number] [place] [address] Nov, 2014 [facility] [place] [facility] [address] [id number] [place] [address]- [address] Nov, 2014 [facility] [place] [facility] [address] [id number] [place] [address] Oct, [facility] [place] [facility] [address] [facility] [id number] [place] [address] Oct, [facility] [place] [facility] [address] [id number] [place] [address]- [address] 30 Oct, 2014 [facility] [address] [id number] [place] [address] 12[address] Oct, [facility] [place] [facility] [address] [id number] [place] [address] 1436 Oct, [facility] [address] [id number] [place] [address] 3745 Oct, [facility] [place] [facility] [address] [id number] [place] [address] 2761 Oct, [facility] [address] [id number] [place] [address] 7647 Oct, [facility] [address] [id number] [place] [address] 8018 Oct, [facility] [address] [id number] [place] [address] 1650 Oct, [facility] [address] [id number] [place] [address]- 7958 Oct, [facility] [place] [facility] [address] [id number] [place] [address]- 5636 Oct, [facility] [address] [id number] [place] [address]- 7241 Oct, [facility] [place] [facility] [address] [id number] [place] [address]- 8932 Oct, [facility] [place] [facility] [address] [id number] [place] [address]- 0286 Oct, [facility] [place] [facility] [address] [id number] [place] [address]- 8076 Oct, [facility] [place] [facility] [address] [id number] [place] [address]- 1661 Oct, [facility] [place] [facility] [address] [id number] [place] [address]- 0458 Oct, [facility] [place] [facility] [address] [id number] [place] [address]- 2934 Oct, [facility] [place] [facility] [address] [id number] [place] [address]- 5081 Oct, [facility] [place] [facility] [address] [id number] [place] [address]- 7048 Oct, [facility] [place] [facility] [address] [id number] [place] [address]- 5231 Sep, [facility] [place] [facility] [address] [id number] [place] [address]- 4166 29 Sep, 2014 [facility] [place] [facility] [address] [id number] [place] [address] 1914 Sep, [facility] [place] [facility] [address] [id number] [place] [address]- 1450 18 Sep, 2014 [facility] [place] [facility] [address] [id number] [place] [address]- 5277 17 Sep, 2014 [facility] [place] [facility] [address] [id number] [place] [address]- 7818 17 Sep, 2014 [facility] [place] [facility] [address] [id number] [place] [address]- 3200 15 Sep, 2014 [facility] [place] [facility] [address] [id number] [place] [address]- 4424 15 Sep, 2014 [facility] [place] [facility] [address] [id number] [place] [address]- 8367 Sep, [facility] [place] [facility] [address] [id number] [place] [address]- 0239 Sep, [facility] [place] [facility] [address] [id number] [place] [address]- 6485 Sep, [facility] [place] [facility] [address] [id number] [place] [address] Sep, [facility] [place] [facility] [address] [id number] [place] [address]- 6805 Sep, [facility] [place] [facility] [address] [id number] [place] [address]- 7172 Sep, [facility] [place] [facility] [address] [id number] [place] [address]- 1433 Sep, [facility] [place] [facility] [address] [id number] [place] [address]- 7013 Sep, [facility] [place] [facility] [address] [id number] [place] [address]- 3325 Sep, [facility] [place] [facility] [address] [id number] [place] [address]- 1817 Sep, [facility] [place] [facility] [address] [id number] [place] [address]- 1163 Sep, [facility] [place] [facility] [address] [id number] [place] [address]- 6766 Sep, [facility] [place] [facility] [address] [id number] [place] [address]- 5310 Aug, [facility] [place] [facility] [address] [id number] [place] [address]- 9986 Aug, [facility] [place] [facility] [address] [id number] [place] [address]- 7898 Aug, [facility] [place] [facility] [address] [id number] [place] [address]- 7683 Aug, [facility] [place] [facility] [address] [id number] [place] [address]- 6433 Aug, [facility] [place] [facility] [address] [id number] [place] [address]- 2211 Aug, [facility] [place] [facility] [address] [id number] [place] [address]- 5540 Aug, [facility] [place] [facility] [address] [id number] [place] [address]- 3393 Aug, [facility] [place] [facility] [address] [id number] [place] [address]- 7518 Aug, [facility] [place] [facility] [address] [id number] [place] [address]- 1997 Jul, [facility] [place] [facility] [address] [id number] [place] [address]- 1284 Jul, [facility] [place] [facility] [address] [id number] [place] [address]- 8493 Jul, [facility] [place] [facility] [address] [id number] [place] [address]- 1461 Jul, 2013 [facility] [place] [facility] [address] [id number] [place] [address] Jul, [facility] [place] [facility] [address] [id number] [place] [address]- 7773 Jul, 2013 [facility] [place] [facility] [address] [id number] [place] [address]- 2615 Jul, 2013 [facility] [place] [facility] [address] [id number] [place] [address]- 8873 Jul, [facility] [place] [facility] [address] [id number] [place] [address]- 7944 Jul, [facility] [place] [facility] [address] [id number] [place] [address]- 3492 10 Jul, 2014 [facility] [place] [facility] [address] [id number] [place] [address]- 5394 Jul, [facility] [place] [facility] [address] [id number] [place] [address]- 4801 10 Jul, 2014 [facility] [place] [facility] [address] [id number] [place] [address]- 3013 Jul, [facility] [place] [facility] [address] [id number] [place] [address]- 8186 Jul, [facility] [place] [facility] [address] [id number] [place] [address]- 9347 30 Jun, 2014 [facility] [place] [facility] [address] [id number] [place] [address] 2540 30 Sep, 2013 [facility] [place] [facility] [address] [id number] [place] [address] 2546 25 Sep, 2013 [facility] [place] [facility] [address] [id number] [place] [address]- 6126 25 Sep, 2013 [facility] [place] [facility] [address] [id number] [place] [address] 2543 25 Sep, 2013 [facility] [place] [facility] [address] [id number] [place] [address]- 9075 25 Sep, 2013 [facility] [place] [facility] [address] [id number] [place] [address]- 1372 24 Jun, 2013 [facility] [place] [facility] [address] [id number] [place] [address]- 6371 24 Jun, 2013 [facility] [place] [facility] [address] [id number] [place] [address]- 6090 22 Sep, 2013 [facility] [place] [facility] [address] [id number] [place] [address]- 6788 22 Sep, 2013 [facility] [place] [facility] [address] [id number] [place] [address]- 8204 17 Sep, 2013 [facility] [place] [facility] [address] [id number] [place] [address] 2541 17 Sep, 2013 [facility] [place] [facility] [address] [id number], [place] [address]- 2547 16 Sep, 2013 [facility] [place] [facility] [address] [id number] [place] [address] 2546 16 Sep, 2013 [facility] [place] [facility] [address] [id number] [place] [address]- 2549 15 Sep, 2013 [facility] [place] [facility] [address] [id number] [place] [address] 2548 15 Sep, 2013 [facility] [place] [facility] [address] [id number] [place] [address]- 7658 12 Jun, 2013 [facility] [place] [facility] [address] [id number] [place] [address]- 5564 12 Jun, 2013 [facility] [place] [facility] [address] [id number] [place] [address]- 8663 Jun, 2013 [facility] [place] [facility] [address] [id number] [place] [address]- 5858 Jun, 2013 [facility] [place] [facility] [address] [id number] [place] [address]- 3971 Jun, 2013 [facility] [place] [facility] [address] [id number] [place] [address]- 2503 Jun, 2013 [facility] [place] [facility] [address] [id number] [place] [address]- 1741 Jun, 2013 [facility] [place] [facility] [address] [id number] [place] [address]- 4134 Jun, 2013 [facility] [place] [facility] [address] [id number] [place] [address]- 9869 Jun, 2013 [facility] [place] [facility] [address] [id number] [place] [address]- 6520 Jun, 2013 [facility] [place] [facility] [address] [id number] [place] [address]- 0004 May, [facility] [place] [facility] [address] [id number] [place] [address]- 9315 May, [facility] [place] [facility] [address] [id number] [place] [address]- 2276 May, [facility] [place] [facility] [address] [id number] [place] [address]- 0949 May, [facility] [place] [facility] [address] [id number] [place] [address]- 7539 May, [facility] [place] [facility] [address] [id number] [place] [address]- 2900 May, [facility] [place] [facility] [address] [id number] [place] [address]- 6916 May, [facility] [place] [facility] [address] [id number] [place] [address]- 1471 May, [facility] [place] [facility] [address] [id number] [place] [address]- 7226 May, [facility] [place] [facility] [address] [id number] [place] [address]- 5798 May, [facility] [place] [facility] [address] [id number] [place] [address]- 5591 May, [facility] [place] [facility] [address] [id number] [place] [address]- 8139 May, [facility] [place] [facility] [address] [id number] [place] [address]- 3348 May, [facility] [place] [facility] [address] [id number] [place] [address]- 2163 Apr, [facility] [place] [facility] [address] [id number] [place] [address]- 6648 Apr, [facility] [place] [facility] [address] [id number] [place] [address]- 0969 Apr, [facility] [place] [facility] [address] [id number] [place] [address]- 9166 Apr, [facility] [place] [facility] [address] [id number] [place] [address]- 6773 Apr, [facility] [place] [facility] [address] [id number] [place] [address]- 5332 Mar, [facility] [place] [facility] [address] [id number] [place] [address]- 0654 Mar, [facility] [place] [facility] [address] [id number] [place] [address]- 2165 Mar, [facility] [place] [facility] [address] [id number] [place] [address]- 8187 February, [facility] [place] [facility] [address] [id number] [place] [address]- 7936 February, [facility] [place] [facility] [address] [id number] [place] [address]- 0527 February, [facility] [place] [facility] [address] [id number] [place] [address]- 4616 February, [facility] [place] [facility] [address] [id number] [place] [address]- 6768 February, [facility] [place] [facility] [address] [id number] [place] [address]- 3330 February, [facility] [place] [facility] [address] [id number] [place] [address]- 4474 February, [facility] [place] [facility] [address] [id number] [place] [address]- 7167 February, [facility] [place] [facility] [address] [id number] [place] [address]- 0328 February, [facility] [place] [facility] [address] [id number] [place] [address]- 0325 Jan, [facility] [place] [facility] [address] [id number] [place] [address]- 3471 Jan, [facility] [place] [facility] [address] [id number] [place] [address]- 0872 Jan, [facility] [place] [facility] [address] [id number] [place] [address]- 0843 Jan, [facility] [place] [facility] [address] [id number] [place] [address]- 4138 Jan, [facility] [place] [facility] [address] [id number] [place] [address]- 2536 Dec, [facility] [place] [facility] [address] [id number] [place] [address]- 6049 Dec, [facility] [place] [facility] [address] [id number] [place] [address]- 7850 Dec, [facility] [place] [facility] [address] [id number] [place] [address]- 3966 Dec, [facility] [place] [facility] [address] [id number] [place] [address]- 3086 Dec, [facility] [place] [facility] [address] [id number] [place] [address]- 7176 Nov, [facility] [place] [facility] [address] [id number] [place] [address]- 1523 Nov, [facility] [place] [facility] [address] [id number] [place] [address]- 1106 Nov, [facility] [place] [facility] [address] [id number] [place] [address]- 2222 Nov, [facility] [place] [facility] [address] [id number] [place] [address]- 5959 Oct, [facility] [place] [facility] [address] [id number] [place] [address]- 7537 Oct, [facility] [place] [facility] [address] [id number] [place] [address]- 3885 Oct, [facility] [place] [facility] [address] [id number] [place] [address]- 3674 Oct, [facility] [place] [facility] [address] [id number] [place] [address]- 5578 Oct, [facility] [place] [facility] [address] [id number] [place] [address]- 0923 Oct, [facility] [place] [facility] [address] [id number] [place] [address]- 9470 Oct, [facility] [place] [facility] [address] [id number] [place] [address]- 4682 Oct, [facility] [place] [facility] [address] [id number] [place] [address]- 2792 Oct, [facility] [place] [facility] [address] [id number] [place] [address]- 5323 Oct, [facility] [place] [facility] [address] [id number] [place] [address]- 7320 Aug, [facility] [place] [facility] [address] [id number] [place] [address]- 8113 Aug, [facility] [place] [facility] [address] [id number] [place] [address]- 3770 Jul, [facility] [place] [facility] [address] [id number] [place] [address]- 3774 Jul, [facility] [place] [facility] [address] [id number] [place] [address]- 2856 Jul, [facility] [place] [facility] [address] [id number] [place] [address]- 6871 Jul, [facility] [place] [facility] [address] [id number], [place] [address]- 6382 Jul, [facility] [place] [facility] [address] [id number] [place] [address]- 6824 Jul, [facility] [place] [facility] [address] [id number], [place] [address]- 0463 Apr, [facility] [place] [facility] [address] [id number], [place] [address]- 6116 Dec, [facility] [place] [facility] [address] [id number], [place] [address]- 2118 Nov, [facility] [place] [facility] [address] [id number] [place] [address]- 0452 Nov, [facility] [place] [facility] [address] [id number], [place] [address]- 7403 Nov, [facility] [place] [facility] [address] [id number], [place] [address]- 6788 Oct, [facility] [place] [facility] [address] [id number] [place] 6332 Sep, [facility] [place] [facility] [address] [id number] [place] [address]- 1336 Sep, [facility] [place] [facility] [address] [id number] [place] 3846 Sep, [facility] [place] [facility] [address] [id number] [place] [address]- 4663 Sep, [facility] [place] [facility] [address] [id number] [place] [address] 2545 Aug, [facility] [place] [facility] [address] [id number] [place] [address]- 8665 Aug, [facility] [place] [facility] [address] [id number] [place] [address]- 5202 Jul, [facility] [place] [facility] [address] [id number] [place] [address]- 4230 Jul, [facility] [place] [facility] [address] [id number] [place] [address]- 6812 28 Jun, 2012 [facility] [place] [facility] [address] [id number] [place] [address] 2548 26 Jun, 2012 [facility] [place] [facility] [address] [id number] [place] [address]- 254 24 Jun, 2012 [facility] [place] [facility] [address] [id number] [place] [address] 2546 24 Jun, 2012 [facility] [place] [facility] [address] [id number] [place] [address]- 2543 12 Jun, 2012 [facility] [place] [facility] [address] [id number] [place] [address] 2549 31 Apr, 2012 [facility] [place] [facility] [address] [id number] [place] [address] 2546 30 Apr, 2012 [facility] [place] [facility] [address] [id number] [place] [address]237 Apr, [facility] [place] [facility] [address] [id number] [place] [address]- 7627 Mar, [facility] [place] [facility] [address] [id number] [place] [address]- 6907 Mar, [facility] [place] [facility] [address] [id number] [place] [address]- 2498 Mar, [facility] [place] [facility] [address] [id number] [place] [address]- 3826 February, [facility] [address] [id number] [place] [address]- 5770 Jan, [facility] [place] [facility] [address] [id number] [place] [address]- 3274 Dec, [facility] [address] [id number] [place] [address]- 1869 Dec, [facility] [address] [id number] [place] [address]- 7966 Dec, [facility] [address] [id number] [place] [address]- 3584 Dec, [facility] [address] [id number] [place] [address]- 2107 Dec, [facility] [place] [facility] [address] [id number] [place] [address]- 1710 14 Nov, 2011 [facility] [place] [facility] [address] [id number], [place] [address]- 9592 Nov, [facility] [place] [facility] [address] [id number] [place] [address]- 0653 Oct, [facility] [place] [facility] [address] [id number] [place] [address] Oct, [facility] [place] [facility] [address] [id number] [place] [address] Oct, [facility] [place] [facility] [address] [id number], [place] [address] 13 Sep, 2011 [facility] [place] [facility] [address] [id number] [place] [address] 21 Aug, 2011 [facility] [place] [facility] [address] [id number] [place] [address] 10 Aug, 2011 [facility] [place] [facility] [address] [id number] [place] [address] 28[address] 28 Jul, 2011 [facility] [place] [facility] [address] [id number] [place] [address] 24 Jul, 2011 [facility] [place] [facility] [address] [id number] [place] [address], [place] [address] 19 Jul, 2011 [facility] [place] [facility] [address] [id number] [place] [address] 13 Jan, 2011 [facility] [place] [facility] [address] [facility] [id number] [place] [address] 29 Sep, 2010 [facility] [place] [facility] [address] [id number] [place] [address] 27 Sep, 2010 [facility] [place] [facility] [address] [facility] [id number] [place] [address] 20 Sep, 2010 [facility] [place] [facility] [address] [facility] [id number] [place] [address] 130[address] 20 Sep, 2010 [facility] [place] [facility] [address] [facility] [id number] [place] [address]- [address] 06 Sep, 2010 [facility] [place] [facility] [address] [id number] [place] [address] 16 Aug, 2010 [facility] [place] [facility] [address] [id number] [place] [address] 8466 16 Aug, 2010 [facility] [place] [facility] [address] [facility] [id number] [place] [address] 08 Aug, 2010 [facility] [place] [facility] [address] [facility] [id number] [place] [address]- [address] 19 Jul, 2010 [facility] [place] [facility] [address] [id number], [place] [address] 19 Jul, 2010 [facility] [id number], [place] [address] Jul, [facility] [id number], [place] [address] May, [facility] [id number], [place] [address] Apr, [facility] [id number], [place] [address] Dec, [facility] [id number], [place] [address] Sep, [facility] [id number], [place] [address] Sep, [facility] [id number], [place] [address] Aug, [facility] [id number], [place] [address] Aug, [facility] [address], [place] [address] Jul, [facility] [address] [id number], [place] [address] Mar, IMMUNIZATIONS No Known Immunizations SOCIAL HISTORY Never Assessed REASON FOR VISIT PA for [facility] 1.5mg PLAN OF CARE VITAL SIGNS MEDICATIONS Unknown [...]
--- OUTSIDE RECORDS SUMMARY | 2018-10-08 20:48 | XMS REPORT ---
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 Active 582782504 Problem Edema of both feet R60.0 Active 911589113 Problem Tobacco abuse Z72.0 Active 77105647 Problem Chronic migraine G43.709 Active 07364904 Problem Mixed hyperlipidemia E78.2 Active 774735897 Problem Spinal stenosis, lumbar region M48.06 Active 52818836 Problem Anxiety F41.9 Active 43037230 Problem Radiculopathy of lumbar region M54.16 Active 815520797 Problem Bulging lumbar disc M51.26 Active 374828659 Problem Asthma J45.909 Active 863630646 Problem Essential hypertension I10 Active 15601025 ALLERGIES No Information ENCOUNTERS Encounter Location Date Diagnosis [facility] [id number] [address] February, [facility] [id number], [place] [address] Jan, Chronic pain G89.29 [facility] [id number], [place] [address] 160[address] Jan, [facility]PC 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 Z79.4 [facility] [id number], [place] [address] Jan, Encounter for Depo-Provera contraception Z30.42 [place] [address] 48035- 6883 Jan, [place] [address] 26226- 8111 Jan, Chronic pain G89.29 and Anxiety F41.9 [place] [address] 91039- 1627 Jan, [place] [address] 34196- 9737 Dec, [place] [address] 79329- 8715 Dec, Gastroesophageal reflux disease without esophagitis K21.9 and Anxiety F41.9 [place] [address] 02927- 6029 Dec, Essential hypertension I10 ; Mixed hyperlipidemia E78.2 ; Type 2 diabetes mellitus with diabetic neuropathy, unspecified E11.40 ; FPC 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 Z79.4 ; Chronic pain G89.29 ; HSV (herpes simplex virus) infection B00.9 ; Anxiety F41.9 and Gastroesophageal reflux disease without esophagitis K21.9 [place] [address] [address]362- 5132 07 Dec, 2017 Chronic pain G89.29 and Chronic migraine G43.709 [place] [address] 14188- 4017 Nov, [place] [address] 47477- 0491 Nov, Essential hypertension I10 and Chronic pain G89.29 [place] [address] 59025- 0991 05 Nov, 2017 Chronic pain G89.29 ; Essential hypertension I10 and Type 2 diabetes mellitus without complication E11.9 [place] [address] [place] [address]- 1354 Oct, Chronic pain G89.29 [place] [id number] [place] [address] 80172- 7392 Oct, [facility] [id number] [place] [address] 78757- 3464 Sep, Type 2 diabetes mellitus without complication E11.9 ; Essential hypertension I10 ; FPC (current) use of insulin Z79.4 ; Chronic migraine G43.709 ; Chronic pain G89.29 and Acute non-recurrent maxillary sinusitis J01.00 [place] [id number] [place] [address] 52088- 3367 19 Sep, 2017 Encounter for Depo-Provera contraception Z30.42 [place] [id number] [place] [address] 40023- 7489 13 Sep, 2017 Chronic pain G89.29 and Radiculopathy of lumbar region M54.16 [place] [id number] [place] [address] 60349- 5650 Sep, [place] [id number] [place] [address] 99516- 3840 Sep, [place] [id number] [place] [address] 01864- 1778 Aug, Type 2 diabetes mellitus without complication E11.9 [place] [id number] [place] [address] 33473- 6644 Aug, [place] [id number] [place] [address] 59856- 9593 Aug, Radiculopathy of lumbar region M54.16 and Chronic pain G89.29 [place] [id number] [place] [address] 05962- 1154 09 Aug, 2017 Type 2 diabetes mellitus without complication E11.9 [place] [id number] [place] [address] 22928- 2312 02 Aug, 2017 Type 2 diabetes mellitus without complication E11.9 [facility] [address], [place] [address] 6536 Jul, Type 2 diabetes mellitus without complication E11.9 [facility] [address], [place] [address]- 0849 Jul, [facility] [id number] [place] [address] 99640- 3817 Jul, Chronic pain G89.29 [facility] [id number] [place] [address] 65570- 8034 Jul, [facility] [id number] [place] [address] 58075- 5838 Jul, [facility] [id number] [place] [address] 22419- 4923 Jul, Type 2 diabetes mellitus without complication E11.9 [facility] [id number] [place] [address] 19883- 4629 Jul, [facility] [id number], [place] [address]- 6580 Jul, Type 2 diabetes mellitus without complication E11.9 [facility] [address], [place] [address]- 2417 Jul, [facility] [address], [place] [address]- 1847 Jul, [facility] [address], [place] [address]- 6926 Jul, [facility] [address], [place] [address]- 1307 Jun, Type 2 diabetes mellitus without complication E11.9 [facility] [address], [place] [address]- 0757 Jun, Chronic migraine G43.709 ; Type 2 diabetes mellitus without complication E11.9 ; Calculus of right kidney N20.0 ; Yeast dermatitis B37.2 and HSV (herpes simplex virus) infection B00.9 [facility] [id number] [place] [address] 44774- 2488 Jun, Type 2 diabetes mellitus without complication E11.9 [facility] [id number] [place] [address] 64913- 7682 Jun, [facility] [address] 48976- 3239 Jun, Radiculopathy of lumbar region M54.16 and Chronic pain G89.29 [place] [address] 24338- 5656 Jun, Encounter for Depo-Provera contraception Z30.42 [place] [id number] [place] [address] 79914- 4592 Jun, Type 2 diabetes mellitus without complication E11.9 [place] [address] 23252- 0406 Jun, [facility] [address] 43469 -0322 May, Acute nasopharyngitis (common cold) J00 [place] [id number] [place] [address] 11465- 3010 May, Chronic pain G89.29 [place] [id number] [place] [address] 46208- 9297 May, Headache following lumbar puncture G97.1 [place] [address] 31731- 3331 May, Radiculopathy of lumbar region M54.16 [place] [address] 41497- 7201 Apr, [facility] [id number] [place] [address] 93167- 4920 Apr, Type 2 diabetes mellitus without complication E11.9 ; Chronic pain G89.29 ; Essential hypertension I10 ; Radiculopathy of lumbar region M54.16 ; Spinal stenosis, lumbar region M48.06 ; Gastroesophageal reflux disease without esophagitis K21.9 ; HSV (herpes simplex virus) infection B00.9 ; Mixed hyperlipidemia E78.2 ; Anxiety F41.9 and Asthma J45.909 [place] [id number] [place] [address] 25841- 9801 Apr, Encounter for Depo-Provera contraception Z30.42 [place] [address] 43741- 6120 Apr, Chronic pain G89.29 and Anxiety F41.9 [place] [address] 57395- 9439 Mar, [place] [address] 79252- 7773 Mar, [place] [address] 89013- 8652 Mar, Mixed hyperlipidemia E78.2 [place] [id number] [place] [address] 54496- 0031 Mar, Type 2 diabetes mellitus without complication E11.9 ; Chronic pain G89.29 ; Essential hypertension I10 ; Radiculopathy of lumbar region M54.16 ; Spinal stenosis, lumbar region M48.06 ; Gastroesophageal reflux disease without esophagitis K21.9 ; HSV (herpes simplex virus) infection B00.9 ; Mixed hyperlipidemia E78.2 and Anxiety F41.9 [place] [id number] [place] [address] 92012- 2092 Mar, [place] [id number] [place] [address] 71079- 6562 Mar, [place] [id number] [place] [address] 03644- 3993 Mar, [place] [id number] [place] [address] 77959- 2629 February, Chronic pain G89.29 [facility] [address], [place] [address]- 8051 February, [facility] [id number] [place] [address] 02354- 8989 Jan, Chronic pain G89.29 [facility] [address], [place] [address]- 1375 Jan, Type 2 diabetes mellitus without complication E11.9 [facility] [id number] [place] [address] 59929- 7556 Jan, [place] [id number] [place] [address] 97555- 4059 Jan, [facility] [id number] [place] [address] 03914- 9323 Jan, [place] [id number] [place] [address] 57895- 3963 Jan, Type 2 diabetes mellitus without complication [...] J01.00 and Encounter for Depo-Provera contraception Z30.42 [facility] [address], [place] [address]- 3215 28 Dec, 2016 Chronic pain G89.29 [facility] [id number] [place] [address] 44270- 3626 Dec, Abnormal ankle brachial index (BERNARDINO) R68.89 [place] [address], [place] [address]- 0633 Dec, [facility] [id number] [place] [address] 16443- 6801 Dec, Routine gynecological examination Z01.419 ; Chronic [...] virus) infection B00.9 and Allergic rhinitis 477.9 [id number] [place] [address] 20533- 1135 Nov, Chronic pain G89.29 [id number] [place] [address] 92435- 5392 02 Nov, 2016 Chronic pain G89.29 ; [...] mucoid otitis media of both ears H65.113 [place] [id number] [place] [address] 44315- 4218 Oct, [address] [id number] [place] [address] 12090- 6351 Oct, Chronic pain G89.29 [place] [id number] [place] [address] 90422- 6277 Oct, Chronic pain G89.[address] 14461- 5129 Sep, Chronic pain G89.29 ; Type 2 diabetes mellitus without complication E11.9 ; Essential hypertension I10 ; Radiculopathy of lumbar region M54.16 ; Spinal stenosis, lumbar region M48.06 ; Gastroesophageal reflux disease without esophagitis K21.9 ; Encounter for surveillance of injectable contraceptive Z30.42 ; Bilateral cold feet R20.9 ; Pain of left foot M79.672 and Pain in right foot M79.671 [place] [address] 89603- 3741 05 Sep, 2016 [place] [address] 08388- 6375 Aug, [place] [address] 23663- 9215 Aug, [place] [address] 57623- 2902 Aug, Chronic pain G89.29 ; Type 2 diabetes mellitus without complication E11.9 ; Essential hypertension I10 ; Rash and nonspecific skin eruption R21 and Upper respiratory infection, acute J06.9 [place] [address] 05259- 5656 Aug, [place] [address] 02243- 1336 Aug, [place] [address] 30238- 3705 Jul, [place] [address] 90440- 6767 Jul, Dysuria R30.0 ; Encounter for Depo-Provera contraception Z30.42 ; Herpes simplex B00.9 ; Nausea & vomiting R11.2 and Asthma J45.909 [place] [id number] [place] [address] 19776- 2702 Jun, Dysuria R30.0 [place] [address] 01710- 7816 19 Jun, 2016 Dysuria R30.0 [place] [address] 55029- 7628 15 Jun, 2016 [place] [address] 11288- 7829 Jun, [place] [id number] [place] [address] 72774- 5506 May, [place] [id number] [place] [address] 13531- 4401 May, [place] [id number] [place] [address] 68444- 0266 May, Chronic pain G89.29 ; Essential hypertension I10 ; Type 2 diabetes mellitus without complication E11.9 ; Edema of both feet R60.0 and Rash and nonspecific skin eruption R21 [place] [id number] [place] [address] 08161- 0728 Apr, [place] [id number] [place] [address] 75464- 8558 Mar, Carpal tunnel syndrome, left upper limb G56.02 and Carpal tunnel syndrome, right upper limb G56.01 [place] [id number] [place] [address] 09380- 5570 Mar, [place] [id number] [place] [address] 68289- 5047 Mar, Encounter for Depo-Provera contraception Z30.42 [place] [id number] [place] [address] 05961- 2861 February, [place] [id number] [place] [address] 94253- 4877 February, [place] [id number] [place] [address] 23682- 8420 February, Chronic pain G89.29 ; Essential hypertension I10 ; Type 2 diabetes mellitus without complication E11.9 ; HSV (herpes simplex virus) infection B00.9 ; Anxiety F41.9 ; Hypersomnia G47.10 ; Tobacco abuse Z72.0 ; Hand pain, left M79.642 ; Hand pain, right M79.641 ; Left foot pain M79.672 and Heart palpitations R00.2 [place] [id number] [place] [address] 97378- 6778 Jan, [place] [id number] [place] [address] 11164- 2301 Jan, [place] [id number] [place] [address] 62562- 2823 Jan, [place] [address] 44883- 2412 Jan, [place] [id number] [place] [address] 97135- 6597 Jan, Upper respiratory infection J06.9 and Type 2 diabetes mellitus without complication E11.9 [place] [id number] [place] [address] 70846- 0097 Dec, [address] [id number] [place] [address] 83154- 2112 Dec, Chronic pain G89.29 ; Essential hypertension I10 ; Type 2 diabetes mellitus without complication E11.9 ; HSV (herpes simplex virus) infection B00.9 ; Anxiety F41.9 ; Upper respiratory infection J06.9 ; Hypersomnia G47.10 and Tobacco abuse Z72.0 [id number] [place] [address] 13382- 1384 Dec, Encounter for Depo-Provera contraception Z30.42 [id number] [place] [address] 70805- 5991 Dec, [address] [id number] [place] [address] 65958- 5502 Dec, Chronic pain G89.29 ; Sinusitis J32.9 ; Snoring R06.83 and Daytime hypersomnia G47.19 [id number] [place] [address] 54870- 4203 Nov, HSV (herpes simplex virus) infection B00.9 ; Encounter for Papanicolaou smear for cervical cancer screening Z12.4 ; Screening for STD sexually transmitted disease Z11.3 and Bartholin's gland cyst N75.0 [facility] [id number] [place] [address] 22139- 8670 Nov, [facility] [id number] [place] [address] 08080- 9800 Nov, [facility] [id number] [place] [address] 41783- 4980 Nov, Essential hypertension I10 ; Type 2 diabetes mellitus without complication E11.9 ; HSV (herpes simplex virus) infection B00.9 ; Spinal stenosis, lumbar region M48.06 and Vaginal yeast infection B37.3 [place] [id number] [place] [address] 27201- 9034 Nov, [place] [id number] [place] [address] 49659- 0259 Nov, [place] [id number] [place] [address] 77955- 1067 Oct, [place] [id number] [place] [address] 93004- 7881 Oct, HSV (herpes simplex virus) infection B00.9 ; Yeast infection B37.9 ; Change in bowel habit R19.4 ; Nausea & vomiting R11.2 and Gastroesophageal reflux disease without esophagitis K21.9 [place] [id number] [place] [address] 16707- 0526 Oct, [facility] [id number] [place] [address] 60969- 1530 Oct, Type 2 diabetes mellitus without complication E11.9 ; Essential hypertension I10 and Acute maxillary sinusitis, recurrence not specified J01.00 [place] [id number] [place] [address] 41030- 3758 Oct, [facility] [id number] [place] [address] 18238- 3377 Oct, [facility] [address] 05170- 7645 Oct, Exposure to head lice Z20.7 ; Blood glucose abnormal R73.09 ; Boil of buttock L02.32 and Type 2 diabetes mellitus without complication E11.[address] 54329- 4541 Oct, [address] 62346- 6034 Sep, [address] 70153- 5630 Sep, [address] 60510- 1179 Aug, Encounter for Depo-Provera contraception Z30.[address] 51819- 7079 Aug, Anxiety F41.9 ; Spinal stenosis, lumbar region M48.06 ; Radiculopathy of lumbar region M54.16 ; Asthma J45.909 ; GERD (gastroesophageal reflux disease) K21.9 ; Essential hypertension I10 and Long-term use of high- risk medication Z79.[address] 79774- 1246 Jul, [address] 80076- 3354 Jun, Hemorrhoid 455.[address] 29453- 2060 Jun, [address] 90094- 1169 Jun, Anxiety 300.00 ; Asthma 493.90 ; Hyperhidrosis 705.21 ; Chest discomfort 786.59 and Upper respiratory infection 465.[address] 78896- 2909 May, Encounter for Depo-Provera contraception V25.49 [place] [id number] [place] [address] 84484- 3071 May, [place] [address] 18524- 3796 May, [place] [address] 45889- 8093 May, Spinal stenosis of lumbar region with radiculopathy 724.02 ; Bulging of intervertebral disc between L4 and L5 722.10 ; GERD ( gastroesophageal reflux disease) 530.81 ; Chronic pain 338.29 ; Declining mobility 799.89 and Epigastric pain 789.06 [place] [address] 46551- 2458 Apr, [place] [address] 65273- 5130 Apr, Nausea 787.02 and Heart burn 787.1 [place] [address] 69558- 7725 Mar, Lumbago 724.2 ; Vitamin D deficiency 268.9 ; Anxiety 300.00 ; Allergic rhinitis 477.9 and Contraceptive surveillance V25.40 [place] [id number] [place] [address] 40987- 7557 February, 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 ; Chronic pain 338.29 and Vaginal discharge 623.5 [place] [id number] [place] [address] 71530- 3515 February, [place] [id number] [place] [address] 88331- 5143 February, [place] [address] 51760- 1637 Jan, [place] [id number] [place] [address] 32059- 7341 Jan, [place] [address] 95099- 0677 Dec, [facility] [place] [facility] [address] [id number] [place] [address]- 8244 Dec, [facility] [place] [facility] [address] [id number] [place] [address]- 3309 Dec, [facility] [place] [facility] [address] [id number] [place] [address]- 8030 Dec, [facility] [place] [facility] [address] [id number] [place] [address]- 5639 Dec, [facility] [place] [facility] [address] [id number] [place] [address]- 0245 Dec, [facility] [place] [facility] [address] [id number] [place] [address]- 7318 Dec, [facility] [place] [facility] [address] [facility] [id number] [place] [address]- 4857 Dec, [facility] [place] [facility] [address] [id number] [place] [address]- 8845 Dec, [facility] [place] [facility] [address] [id number] [place] [address]- 1697 Dec, [facility] [place] [facility] [address] [facility] [id number] [place] [address]- 1920 Dec, [facility] [place] [facility] [address] [id number] [place] [address]- 0760 Dec, [facility] [place] [facility] [address] [id number] [place] [address]- 4825 Nov, [facility] [place] [facility] [address] [id number] [place] [address]- 5430 Nov, [facility] [place] [facility] [address] [id number] [place] [address]- 1927 Nov, [facility] [place] [facility] [address] [facility] [id number] [place] [address]- 0234 Nov, [facility] [place] [facility] [address] [id number] [place] [address] 2544 23 Nov, 2014 [facility] [place] [facility] [address] [id number] [place] [address] 2546 23 Nov, 2014 [facility] [place] [facility] [address] [id number] [place] [address] 2546 16 Nov, 2014 [facility] [place] [facility] [address] [id number] [place] [address] 2546 16 Nov, 2014 [facility] [place] [facility] [address] [id number] [place] [address] 13 Nov, 2014 [facility] [place] [facility] [address] [id number] [place] [address] 13 Nov, 2014 [facility] [place] [facility] [address] [facility] [id number] [place] [address] 13 Nov, 2014 [facility] [place] [facility] [address] [id number] [place] [address] 13 Nov, 2014 [facility] [place] [facility] [address] [id number] [place] [address] 13 Nov, 2014 [facility] [place] [facility] [address] [facility] [id number] [place] [address] 13 Nov, 2014 [facility] [place] [facility] [address] [facility] [id number] [place] [address] 13 Nov, 2014 [facility] [place] [facility] [address] [id number] [place] [address] 13 Nov, 2014 [facility] [place] [facility] [address] [id number] [place] [address] 10 Nov, 2014 [facility] [place] [facility] [address] [id number] [place] [address] 10 Nov, 2014 [facility] [place] [facility] [address] [facility] [id number] [place] [address] 09 Nov, 2014 [facility] [place] [facility] [address] [id number] [place] [address] Nov, 2014 [facility] [place] [facility] [address] [id number] [place] [address] Nov, 2014 [facility] [place] [facility] [address] [id number] [place] [address] Nov, 2014 [facility] [place] [facility] [address] [id number] [place] [address] Nov, [facility] [place] [facility] [address] [id number] [place] [address] Oct, [facility] [place] [facility] [address] [id number] [place] [address] Oct, [facility] [place] [facility] [address] [id number] [place] [address] Oct, [facility] [place] [facility] [address] [id number] [place] [address] Oct, [facility] [place] [facility] [address] [id number] [place] [address] Oct, [facility] [place] [facility] [address] [id number] [place] [address] Oct[facility] [place] [facility] [address] [id number] [place] [address] 1992 Oct, [facility] [place] [facility] [address] [id number] [place] [address] Oct, [facility] [place] [facility] [address] [id number] [place] [address] 0679 Oct, [facility] [place] [facility] [address] [id number] [place] [address] 9[address] Oct, [facility] [place] [facility] [address] [id number] [place] [address]- 45[address] Oct, [facility] [place] [facility] [address] [id number] [place] [address]- 6816 Oct, [facility] [place] [facility] [address] [id number] [place] [address]- 7252 Oct, [facility] [place] [facility] [address] [id number] [place] [address]- 5222 Oct, [facility] [place] [facility] [address] [id number] [place] [address] 2301 Oct, [facility] [place] [facility] [address] [id number] [place] [address]- 5374 Oct, [facility] [place] [facility] [address] [id number] [place] [address] 8793 Oct, [facility] [place] [facility] [address] [id number] [place] [address]- 8087 Oct, [facility] [place] [facility] [address] [id number] [place] [address]- 2378 Oct, [facility] [place] [facility] [address] [id number] [place] [address]- 4519 Oct, [facility] [place] [facility] [address] [id number] [place] [address]- 0907 Oct, [facility] [place] [facility] [address] [id number] [place] [address]- 8641 Sep, [facility] [place] [facility] [address] [id number] [place] [address]- 5567 29 Sep, 2014 [facility] [place] [facility] [address] [id number], [place] [address]- [address] 18 Sep, 2014 [facility] [place] [facility] [address] [id number] [place] [address]- 7340 18 Sep, 2014 [facility] [place] [facility] [address] [id number] [place] [address]- 8454 Sep, [facility] [place] [facility] [address] [id number] [place] [address]- 7360 Sep, [facility] [place] [facility] [address] [id number] [place] [address]- 7293 15 Sep, 2014 [facility] [address] [id number] [place] [address]- 7666 15 Sep, 2014 [facility] [place] [facility] [address] [id number] [place] [address]- 9496 12 Sep, 2014 [facility] [address] [id number] [place] [address]- 8712 12 Sep, 2014 [facility] [place] [facility] [address] [id number] [place] [address]- 4998 11 Sep, 2014 [facility] [place] [facility] [address] [id number] [place] [address]- 4965 Sep, [facility] [place] [facility] [address] [id number] [place] [address]- 1071 Sep, [facility] [address] [id number] [place] [address]- 7843 Sep, [facility] [place] [facility] [address] [id number] [place] [address]- 4250 Sep, [facility] [place] [facility] [address] [id number] [place] [address]- 9573 Sep, [facility] [address] [id number] [place] [address]- 4471 10 Sep, 2014 [facility] [place] [facility] [address] [id number] [place] [address]- 7907 Sep, [facility] [place] [facility] [address] [id number] [place] [address]- 1359 Sep, [facility] [place] [facility] [address] [id number] [place] [address]- 5213 Sep, [facility] [place] [facility] [address] [id number] [place] [address]- 8854 Aug, [facility] [place] [facility] [address] [id number] [place] [address]- 2116 Aug, [facility] [place] [facility] [address] [id number] [place] [address]- 5405 Aug, [facility] [place] [facility] [address] [id number] [place] [address]- 8281 Aug, [facility] [place] [facility] [address] [id number] [place] [address]- 9349 Aug, [facility] [place] [facility] [address] [id number] [place] [address]- 3579 Aug, [facility] [place] [facility] [address] [id number] [place] [address]- 8576 Aug, [facility] [place] [facility] [address] [id number] [place] [address]- 6915 Aug, [facility] [place] [facility] [address] [id number] [place] [address]- 9946 Aug, [facility] [place] [facility] [address] [id number] [place] [address]- 0766 Jul, [facility] [place] [facility] [address] [id number] [place] [address]- 6405 Jul, [facility] [place] [facility] [address] [id number] [place] [address]- 2895 Jul, [facility] [place] [facility] [address] [id number] [place] [address]- 4133 Jul, [facility] [place] [facility] [address] [id number], [place] [address]- 3502 Jul, [facility] [place] [facility] [address] [id number] [place] [address]- 5622 Jul, [facility] [place] [facility] [address] [id number] [place] [address]- 5067 Jul, [facility] [place] [facility] [address] [id number], [place] [address]- 9798 Jul, [facility] [place] [facility] [address] [id number], [place] [address]- 6456 Jul, [facility] [place] [facility] [address] [id number] [place] [address]- 5066 10 Jul, 2014 [facility] [place] [facility] [address] [id number] [place] [address]- 2996 Jul, [facility] [place] [facility] [address] [id number] [place] [address]- 7263 Jul, [facility] [place] [facility] [address] [id number] [place] [address]- 3358 Jul, [facility] [place] [facility] [address] [id number] [place] [address]- 6171 Jul, [facility] [place] [facility] [address] [id number] [place] [address]- 7188 30 Jun, 2013 [facility] [place] [facility] [address] [id number] [place] [address]- 6888 30 Jun, 2013 [facility] [place] [facility] [address] [id number] [place] [address]- 2543 25 Jun, 2013 [facility] [place] [facility] [address] [id number] [place] [address] 2541 25 Jun, 2013 [facility] [place] [facility] [address] [id number] [place] [address] 254 25 Jun, 2013 [facility] [place] [facility] [address] [id number] [place] [address] 2547 25 Jun, 2013 [facility] [place] [facility] [address] [id number] [place] [address]- 2543 24 Jun, 2013 [facility] [place] [facility] [address] [id number] [place] [address] 2546 24 Jun, 2013 [facility] [place] [facility] [address] [id number] [place] [address]- 2543 22 Jun, 2013 [facility] [place] [facility] [address] [id number] [place] [address]- 2543 22 Jun, 2013 [facility] [place] [facility] [address] [id number] [place] [address]- 6100 17 Sep, 2013 [facility] [place] [facility] [address] [id number] [place] [address]- 1676 17 Sep, 2013 [facility] [place] [facility] [address] [id number] [place] [address]- 2546 16 Sep, 2013 [facility] [place] [facility] [address] [id number] [place] [address] 2546 16 Sep, 2013 [facility] [place] [facility] [address] [id number] [place] [address]- 2547 15 Sep, 2013 [facility] [place] [facility] [address] [id number] [place] [address]- 3036 15 Sep, 2013 [facility] [place] [facility] [address] [id number] [place] [address]- 5838 12 Sep, 2013 [facility] [place] [facility] [address] [id number] [place] [address]- 2545 12 Sep, 2013 [facility] [place] [facility] [address] [id number] [place] [address]- 2548 11 Sep, 2013 [facility] [place] [facility] [address] [id number] [place] [address] 2541 11 Sep, 2013 [facility] [place] [facility] [address] [id number] [place] [address]- 2081 11 Sep, 2013 [facility] [place] [facility] [address] [id number] [place] [address]- 2541 11 Sep, 2013 [facility] [place] [facility] [address] [id number] [place] [address] 2542 09 Sep, 2013 [facility] [place] [facility] [address] [id number] [place] [address] 2546 09 Sep, 2013 [facility] [place] [facility] [address] [id number] [place] [address]- 2546 03 Sep, 2013 [facility] [place] [facility] [address] [id number] [place] [address]- 7212 Jun, [facility] [place] [facility] [address] [id number] [place] [address]- 6053 May, [facility] [place] [facility] [address] [id number] [place] [address]- 9950 May, [facility] [place] [facility] [address] [id number] [place] [address]- 2291 May, [facility] [place] [facility] [address] [id number] [place] [address]- 7265 May, [facility] [place] [facility] [address] [id number] [place] [address]- 0766 May, [facility] [place] [facility] [address] [id number] [place] [address]- 7065 May, [facility] [place] [facility] [address] [id number] [place] [address]- 3931 May, [facility] [place] [facility] [address] [id number] [place] [address]- 5785 May, [facility] [place] [facility] [address] [id number] [place] [address]- 9482 May, [facility] [place] [facility] [address] [id number] [place] [address]- 5296 May, [facility] [place] [facility] [address] [id number] [place] [address]- 5574 May, [facility] [place] [facility] [address] [id number] [place] [address]- 8040 May, [facility] [place] [facility] [address] [id number] [place] [address]- 1261 May, [facility] [place] [facility] [address] [id number] [place] [address]- 3363 Apr, [facility] [place] [facility] [address] [id number] [place] [address]- 8482 Apr, [facility] [place] [facility] [address] [id number] [place] [address]- 8039 Apr, [facility] [place] [facility] [address] [id number] [place] [address]- 1757 Apr, [facility] [place] [facility] [address] [id number] [place] [address]- 0340 Apr, [facility] [place] [facility] [address] [id number] [place] [address]- 0439 Mar, [facility] [place] [facility] [address] [id number] [place] [address]- 5819 Mar, [facility] [place] [facility] [address] [id number] [place] [address]- 3114 Mar, [facility] [place] [facility] [address] [id number] [place] [address]- 1679 February, [facility] [place] [facility] [address] [id number] [place] [address]- 6766 February, [facility] [place] [facility] [address] [id number] [place] [address]- 4447 February, [facility] [place] [facility] [address] [id number] [place] [address]- 8417 February, [facility] [place] [facility] [address] [id number] [place] [address]- 5940 February, [facility] [place] [facility] [address] [id number] [place] [address]- 8679 February, [facility] [place] [facility] [address] [id number] [place] [address]- 5974 February, [facility] [place] [facility] [address] [id number] [place] [address]- 1322 February, [facility] [place] [facility] [address] [id number] [place] [address]- 4656 February, [facility] [place] [facility] [address] [id number] [place] [address]- 8949 Jan, [facility] [place] [facility] [address] [id number] [place] [address]- 7968 Jan, [facility] [place] [facility] [address] [id number] [place] [address]- 1034 Jan, [facility] [place] [facility] [address] [id number] [place] [address]- 5615 Jan, [facility] [place] [facility] [address] [id number] [place] [address]- 2216 Jan, [facility] [place] [facility] [address] [id number] [place] [address]- 0255 Dec, [facility] [place] [facility] [address] [id number] [place] [address]- 0917 Dec, [facility] [place] [facility] [address] [id number] [place] [address]- 5455 Dec, [facility] [place] [facility] [address] [id number] [place] [address]- 1011 Dec, [facility] [place] [facility] [address] [id number] [place] [address]- 2430 Dec, [facility] [place] [facility] [address] [id number] [place] [address]- 9266 Nov, [facility] [place] [facility] [address] [id number] [place] [address]- 3752 Nov, [facility] [place] [facility] [address] [id number] [place] [address]- 0290 Nov, [facility] [place] [facility] [address] [id number] [place] [address]- 4131 Nov, [facility] [place] [facility] [address] [id number] [place] [address]- 0207 Oct, [facility] [place] [facility] [address] [id number] [place] 2306 Oct, [facility] [place] [facility] [address] [id number], [place] [address]- 3496 Oct, [facility] [place] [facility] [address] [id number] [place] [address]- 0551 Oct, [facility] [place] [facility] [address] [id number] [place] [address]- 6322 Oct, [facility] [place] [facility] [address] [id number] [place] [address]- 9378 Oct, [facility] [place] [facility] [address] [id number] [place] [address]- 5081 Oct, [facility] [place] [facility] [address] [id number] [place] [address]- 2807 Oct, [facility] [place] [facility] [address] [id number] [place] [address]- 3462 Oct, [facility] [place] [facility] [address] [id number] [place] [address]- 2262 Oct, [facility] [place] [facility] [address] [id number] [place] [address]- 2810 Aug, [facility] [place] [facility] [address] [id number] [place] [address]- 8295 Aug, [facility] [place] [facility] [address] [id number], [place] [address]- 2852 Jul, [facility] [place] [facility] [address] [id number], [place] [address]- 4001 Jul, [facility] [place] [facility] [address] [id number], [place] [address]- 8071 Jul, [facility] [place] [facility] [address] [id number], [place] [address]- 9918 Jul, [facility] [place] [facility] [address] [id number], [place] [address]- 5113 Jul, [facility] [place] [facility] [address] [id number] [place] [address]- 9771 Jul, [facility] [place] [facility] [address] [id number] [place] [address]- 6713 Apr, [facility] [address] [id number] [place] [address]- 5005 Dec, [facility] [place] [facility] [address] [id number] [place] [address]- 4086 Nov, [facility] [place] [facility] [address] [id number] [place] [address]- 1956 Nov, [facility] [place] [facility] [address] [id number] [place] [address] 2547 Nov, [facility] [place] [facility] [address] [id number] [place] [address]- 9016 Oct, [facility] [place] [facility] [address] [id number] [place] [address]- 9360 Sep, [facility] [place] [facility] [address] [id number] [place] [address]- 0279 Sep, [facility] [place] [facility] [address] [id number] [place] [address]- 2376 Sep, [facility] [place] [facility] [address] [id number] [place] [address]- 1369 Sep, [facility] [place] [facility] [address] [id number] [place] [address]- 4900 Aug, [facility] [place] [facility] [address] [id number] [place] [address]- 3973 Aug, [facility] [place] [facility] [address] [id number] [place] [address]- 5548 Jul, [facility] [place] [facility] [address] [id number] [place] [address]73 Jul, [facility] [place] [facility] [address] [id number] [place] [address] 254 28 Jun, 2012 [facility] [place] [facility] [address] [id number] [place] [address]- 3124 26 Jun, 2012 [facility] [place] [facility] [address] [id number] [place] [address]- 5434 24 Jun, 2012 [facility] [place] [facility] [address] [id number] [place] [address]- 6296 24 Jun, 2012 [facility] [place] [facility] [address] [id number] [place] [address]- 8036 Jun, [facility] [place] [facility] [address] [id number] [place] [address]- 1517 31 Apr, 2012 [facility] [place] [facility] [address] [id number] [place] [address]- 1318 30 Apr, 2012 [facility] [place] [facility] [address] [id number] [place] [address]- 8674 Apr, [facility] [place] [facility] [address] [id number] [place] [address]- 0375 Mar, [facility] [place] [facility] [address] [id number] [place] [address]- 1340 Mar, [facility] [place] [facility] [address] [id number] [place] [address]- 9864 Mar, [facility] [place] [facility] [address] [id number] [place] [address]- 0479 February, [facility] [place] [facility] [address] [id number] [place] [address]- 5639 Jan, [facility] [place] [facility] [address] [id number], [place] [address]- 2598 Dec, [facility] [place] [facility] [address] [id number] [place] [address]- 3732 Dec, [facility] [place] [facility] [address] [id number] [place] [address]- 1531 Dec, [facility] [place] [facility] [address] [id number] [place] [address]- 6937 Dec, [facility] [place] [facility] [address] [id number] [place] [address]- 8625 12 Dec, 2011 [facility] [address] [id number] [place] [address]- 8456 14 Nov, 2011 [facility] [address] [id number] [place] [address]- 5596 13 Nov, 2011 [facility] [address] [id number] [place] [address]- 6604 Oct, [facility] [address] [id number] [place] [address]- 0799 Oct, [facility] [address] [id number] [place] [address], [place] [address]- 3179 Oct, [facility] [address] [id number] [place] [address]- 9505 Sep, [facility] [address] [id number] [place] [address]- 9680 Aug, [facility] [address] [id number] [place] [address]- 4568 Aug, [facility] [address] [id number] [place] [address]- 4378 28 Jul, 2011 [facility] [address] [id number] [place] [address]- 7874 24 Jul, 2011 [facility] [address] [id number] [place] [address]- 2548 19 Jul, 2011 [facility] [address] [id number] [place] [address]- 9925 13 Jan, 2011 [facility] [place] [facility] [address] [id number] [place] [address]- 8314 29 Sep, 2010 [facility] [place] [facility] [address] [id number] [place] [address]- 2540 27 Sep, 2010 [facility] [address] [id number] [place] [address]249 Sep, [facility] [place] [facility] [address] [id number] [place] [address]- 4192 Sep, [facility] [place] [facility] [address] [id number] [place] 8196 Sep, [facility] [place] [facility] [address] [id number] [place] [address]- 7214 Aug, [facility] [place] [facility] [address] [id number] [place] [address] 16 Aug, 2010 [facility] [place] [facility] [address] [id number] [place] [address] 08 Aug, 2010 [facility] [place] [facility] [address] [id number] [place] [address] Jul, [facility] [place] [facility] [address] [id number] [place] [address] Jul, [facility] [place] [facility] [address] [id number], [place] [address] Jul, [facility] [place] [facility] [address] [id number] [place] [address] May, [facility] [place] [facility] [address] [id number], [place] [address] Apr, [facility] [place] [facility] [address] [id number], [place] [address] Dec, [facility] [place] [facility] [address] [id number], [place] [address] 17 Sep, 2009 [facility] [place] [facility] [address] [id number] [place] [address] 17 Sep, 2009 [facility] [place] [facility] [address] [id number], [place] [address] Aug, [facility] [place] [facility] [address] [id number], [place] [address] 11 Aug, 2009 [facility] [place] [facility] [address] [id number], [place] [address] Jul, [facility] [address] [facility] [id number] [place] [address] Mar, IMMUNIZATIONS Vaccine Route Administration Date Status DEPO PROVERA (150 MG/ML) IM Intramuscular Jul 10, 2017 Administered SOCIAL HISTORY Never Assessed REASON FOR VISIT Depo Provera injection---DBennettRN PLAN OF CARE Activity Details Follow Up 3 Months Reason: VITAL SIGNS MEDICATIONS Unknown Medications RESULTS Name Result Date Reference Range TEST, URINE (IN HOUSE) 2017-07-10 RESULTS negative Lot # [id number] Control + Exp date 11/20/18 PROCEDURES Procedure Date Ordered Result Body Site URINE TEST Jul 10, 2017 DEPO PROVERA (150 MG/ML) Jul 10, 2017 THER/PROPH/DIAG INJ, SC/IM Jul 10, 2017 INSTRUCTIONS MEDICATIONS ADMINISTERED No Known [...]
[2018-10-08 20:50] LABS: BASOPHILS # (AUTO) 0.1 10^3/uL (0.0-0.1); BASOPHILS % (AUTO) 1 % (0-10); EOSINOPHILS # (AUTO) 0.1 10^3/uL (0.0-0.3); EOSINOPHILS % (AUTO) 1 % (0-10); HEMATOCRIT 45 % (35-52); HEMOGLOBIN 16.1 G/DL (11.5-16.0); LYMPHOCYTES % (AUTO) 23 % (12-44); MEAN CORPUSCULAR HEMOGLOBIN 31 PG (25-34); MEAN CORPUSCULAR HGB CONC 36 G/DL (32-36); MEAN CORPUSCULAR VOLUME 86 FL (80-99); MONOCYTES # (AUTO) 0.6 X 10^3 (0.0-1.0); MONOCYTES % (AUTO) 5 % (0-12); NEUTROPHILS # (AUTO) 9.1 X 10^3 (1.8-7.8); NEUTROPHILS % (AUTO) 70 % (42-75); PLATELET COUNT 331 10^3/uL (130-400); RED BLOOD COUNT 5.23 10^6/uL (4.35-5.85); RED CELL DISTRIBUTION WIDTH 12.8 % (10.0-14.5); WHITE BLOOD COUNT 12.9 10^3/uL (4.3-11.0)
--- OUTSIDE RECORDS SUMMARY | 2018-10-08 20:58 | XMS REPORT | Continuity of Care Document ---
Author Author [facility] Address Unknown Phone Unavailable Allergies Active Description Code Type Severity Reaction Onset Reported/Identified Relationship to Patient Clinical Status Yes LEVAQUIN MODERATE OTHER Yes SHELL FISH SEVERE ANAPHYLACTIC SHOCK Yes Quinolones [id number] Drug Allergy Unknown N/A 02/10/2006 Yes CLINONE CLINONE Mild N/A 03/21/2009 Yes levofloxacin [id number] Drug Allergy Mild N/A 03/21/2009 Yes Levaquin Drug Allergy N/A N/A 07/25/2009 Yes shellfish Food Allergy N/A N/A 07/25/2009 Yes Levaquin Drug Allergy 07/25/2009 Yes shellfish Food Allergy 07/25/2009 Yes Prozac Drug Allergy N/A N/A 03/24/2012 Yes Prozac 40 mg Capsule Drug Allergy 03/24/2012 Yes Quinolones Drug Allergy N/A N/A 06/16/2014 Yes shellfish derived [id number] Drug Allergy Unknown N/A 05/27/2015 Medications Medication Packaging Start Date Stop Date Route Dosage Sig KETOROLAC VIAL INJ 30 MG/CC (TORADOL VIAL) MG 05/31/2017 05/31/2017 PRN ONCE PROCHLORPERAZINE VIAL INJ 10 MG/2CC (COMPAZINE VIAL) MG 05/31/2017 05/31/2017 ONCE&1259 DIPHENHYDRAMINE VIAL INJ 50 MG/CC (BENADRYL VIAL) MG 05/31/2017 05/31/2017 PRN ONCE NORMAL SALINE 1000CC IV BAG INJ 0.9 % (NS 1000CC IV BAG) ml 05/31/2017 05/31/2017 ONCE&1259 Problems Date Dx Coded Attending Type Code Diagnosis Diagnosed By 09/19/1551 CHRISTINE TREVINO, JUSTIN Forbes Ot M54.5 LOW BACK PAIN 05/12/2008 625.0 DYSPAREUNIA 05/12/2008 V25.40 visit for: contraceptive surveillance 05/12/2008 V72.31 ROUTINE PELVIC EXAM 05/12/2008 HELM MYNOR CHENGA K 625.0 DYSPAREUNIA 05/12/2008 MYNOR HELM DOA K V25.40 visit for: contraceptive surveillance 05/12/2008 HELM DO CHRIS K V72.31 ROUTINE PELVIC EXAM 05/12/2008 625.0 DYSPAREUNIA 05/12/2008 V25.40 visit for: contraceptive surveillance 05/12/2008 V72.31 ROUTINE PELVIC EXAM 05/12/2008 HELM MYNOR CHENGA K 625.0 DYSPAREUNIA 05/12/2008 MYNOR HELM DOA K V25.40 visit for: contraceptive surveillance 05/12/2008 MYNOR HELM DOA K V72.31 ROUTINE PELVIC EXAM 05/12/2008 TIMI SANTOS MD 625.0 DYSPAREUNIA 05/12/2008 TIMI SANTOS MD V25.40 visit for: contraceptive surveillance 05/12/2008 TIMI SANTOS MD V72.31 ROUTINE PELVIC EXAM 05/12/2008 CAMMY TAI LCPC 625.0 DYSPAREUNIA 05/12/2008 CAMMY TAI LCPC B V25.40 visit for: contraceptive surveillance 05/12/2008 CAMMY TAI LCPC B V72.31 ROUTINE PELVIC EXAM 05/12/2008 TIMI SANTOS MD 625.0 DYSPAREUNIA 05/12/2008 TIMI SANTOS MD V25.40 visit for: contraceptive surveillance 05/12/2008 TIMI SANTOS MD V72.31 ROUTINE PELVIC EXAM 05/12/2008 TIMI SANTOS MD 625.0 DYSPAREUNIA 05/12/2008 TIMI SANTOS MD V25.40 visit for: contraceptive surveillance 05/12/2008 TIMI SANTOS MD V72.31 ROUTINE PELVIC EXAM 05/12/2008 TIMI SANTOS MD 625.0 DYSPAREUNIA 05/12/2008 TIMI SANTOS MD V25.40 visit for: contraceptive surveillance 05/12/2008 TIMI SANTOS MD V72.31 ROUTINE PELVIC EXAM 05/12/2008 TIMI SANTOS MD 625.0 DYSPAREUNIA 05/12/2008 TIMI SANTOS MD V25.40 visit for: contraceptive surveillance 05/12/2008 TIMI SANTOS MD V72.31 ROUTINE PELVIC EXAM 05/12/2008 TIMI SANTOS MD 625.0 DYSPAREUNIA 05/12/2008 TIMI SANTOS MD V25.40 visit for: contraceptive surveillance 05/12/2008 TIMI SANTOS MD V72.31 ROUTINE PELVIC EXAM 05/12/2008 CHRIS HELM DO K 625.0 DYSPAREUNIA 05/12/2008 MYNOR HELM DOA K V25.40 visit for: contraceptive surveillance 05/12/2008 MYNOR HELM DOA K V72.31 ROUTINE PELVIC EXAM 05/12/2008 ALISAMichael DIEHL DOMENIC A 625.0 DYSPAREUNIA 05/12/2008 ALISAMichael DIEHL DOMENIC A V25.40 visit for: contraceptive surveillance 05/12/2008 ALISA DIEHL DOMENIC A V72.31 ROUTINE PELVIC EXAM 05/12/2008 CAMMY TAI LCPC 625.0 DYSPAREUNIA 05/12/2008 CAMMY TAI LCPC V25.40 visit for: contraceptive surveillance 05/12/2008 CAMMY TAI LCPC V72.31 ROUTINE PELVIC EXAM 05/12/2008 CHRIS HELM DO K 625.0 DYSPAREUNIA 05/12/2008 MYNOR HELM DOA K V25.40 visit for: contraceptive surveillance 05/12/2008 MYNOR HELM DOA K V72.31 ROUTINE PELVIC EXAM 05/12/2008 RAH SIFUENTES, ANA Servin 625.0 DYSPAREUNIA 05/12/2008 RAH SIFUENTES, ANA Servin V25.40 visit for: contraceptive surveillance 05/12/2008 RAH SIFUENTES, ANA Servin V72.31 ROUTINE PELVIC EXAM 05/12/2008 SUSHIL CUELLAR APRNIDI A 625.0 DYSPAREUNIA 05/12/2008 ALISAMichael DIEHL DOMENIC A V25.40 visit for: contraceptive surveillance 05/12/2008 ALISAMichael DIEHL DOMENIC A V72.31 ROUTINE PELVIC EXAM 05/12/2008 NIRAJ WOLF APRNWNYA L 625.0 DYSPAREUNIA 05/12/2008 MADL FAZAL JENNY L V25.40 visit for: contraceptive surveillance 05/12/2008 MADL FAZAL JENNY L V72.31 ROUTINE PELVIC EXAM 05/12/2008 BOEANA DAVID PHD 625.0 DYSPAREUNIA 05/12/2008 ANA MONREAL PHD V25.40 visit for: contraceptive surveillance 05/12/2008 ANA MONREAL PHD V72.31 ROUTINE PELVIC EXAM 05/12/2008 ANA MONREAL PHD 625.0 DYSPAREUNIA 05/12/2008 ANA MONREAL PHD V25.40 visit for: contraceptive surveillance 05/12/2008 ANA MONREAL PHD V72.31 ROUTINE PELVIC EXAM 05/12/2008 MADL PACKAGING SUPERVISOR, JENNY L 625.0 DYSPAREUNIA 05/12/2008 MADL PACKAGING SUPERVISOR, JENNY L V25.40 visit for: contraceptive surveillance 05/12/2008 MADL PACKAGING SUPERVISOR, JENNY L V72.31 ROUTINE PELVIC EXAM 05/12/2008 JENSEN TREVINO, GWEN 625.0 DYSPAREUNIA 05/12/2008 JENSEN TREVINO, GWEN V25.40 visit for: contraceptive surveillance 05/12/2008 JENSEN TREVINO, GWEN V72.31 ROUTINE PELVIC EXAM 05/12/2008 ANA MONREAL PHD 625.0 DYSPAREUNIA 05/12/2008 ANA MONREAL PHD V25.40 visit for: contraceptive surveillance 05/12/2008 ANA MONREAL PHD V72.31 ROUTINE PELVIC EXAM 05/12/2008 ANA MONREAL PHD 625.0 DYSPAREUNIA 05/12/2008 ANA MONREAL PHD V25.40 visit for: contraceptive surveillance 05/12/2008 ANA MONREAL PHD V72.31 ROUTINE PELVIC EXAM 05/12/2008 ANA MONREAL PHD 625.0 DYSPAREUNIA 05/12/2008 ANA MONREAL PHD V25.40 visit for: contraceptive surveillance 05/12/2008 ANA MONREAL PHD V72.31 ROUTINE PELVIC EXAM 05/12/2008 MADL PACKAGING SUPERVISOR, JENNY L 625.0 DYSPAREUNIA 05/12/2008 MADL PACKAGING SUPERVISOR, JENNY L V25.40 visit for: contraceptive surveillance 05/12/2008 MADL PACKAGING SUPERVISOR, JENNY L V72.31 ROUTINE PELVIC EXAM 05/12/2008 ANA MONREAL PHD 625.0 DYSPAREUNIA 05/12/2008 ANA MONREAL PHD V25.40 visit for: contraceptive surveillance 05/12/2008 ANA MONREAL PHD V72.31 ROUTINE PELVIC EXAM 05/12/2008 ANA MONREAL PHD 625.0 DYSPAREUNIA 05/12/2008 ANA MONREAL PHD V25.40 visit for: contraceptive surveillance 05/12/2008 ANA MONREAL PHD V72.31 ROUTINE PELVIC EXAM 05/12/2008 MADL PACKAGING SUPERVISOR, JENNY L 625.0 DYSPAREUNIA 05/12/2008 MADL PACKAGING SUPERVISOR, JENNY L V25.40 visit for: contraceptive surveillance 05/12/2008 MADL PACKAGING SUPERVISOR, JENNY L V72.31 ROUTINE PELVIC EXAM 05/12/2008 ANA MONREAL PHD 625.0 DYSPAREUNIA 05/12/2008 ANA MONREAL PHD V25.40 visit for: contraceptive surveillance 05/12/2008 ANA MONREAL PHD V72.31 ROUTINE PELVIC EXAM 05/12/2008 CHRIS EHLM DO 625.0 DYSPAREUNIA 05/12/2008 CHRIS HELM DO K V25.40 visit for: contraceptive surveillance 05/12/2008 ALICJA CHENG CHRIS K V72.31 ROUTINE PELVIC EXAM 05/12/2008 MADL PACKAGING SUPERVISOR, JENNY L 625.0 DYSPAREUNIA 05/12/2008 MADL PACKAGING SUPERVISOR, JENNY L V25.40 visit for: contraceptive surveillance 05/12/2008 MADL PACKAGING SUPERVISOR, JENNY L V72.31 ROUTINE PELVIC EXAM 05/12/2008 MADL PACKAGING SUPERVISOR, JENNY L 625.0 DYSPAREUNIA 05/12/2008 MADL PACKAGING SUPERVISOR, JENNY L V25.40 visit for: contraceptive surveillance 05/12/2008 MADL PACKAGING SUPERVISOR, JENNY L V72.31 ROUTINE PELVIC EXAM 05/12/2008 ANA MONREAL PHD 625.0 DYSPAREUNIA 05/12/2008 ANA MONREAL PHD V25.40 visit for: contraceptive surveillance 05/12/2008 ANA MONREAL PHD V72.31 ROUTINE PELVIC EXAM 05/12/2008 ANA MONREAL PHD 625.0 DYSPAREUNIA 05/12/2008 ANA MONREAL PHD V25.40 visit for: contraceptive surveillance 05/12/2008 ANA MONREAL PHD V72.31 ROUTINE PELVIC EXAM 05/12/2008 MADL PACKAGING SUPERVISOR, JENNY L 625.0 DYSPAREUNIA 05/12/2008 MADL PACKAGING SUPERVISOR, JENNY L V25.40 visit for: contraceptive surveillance 05/12/2008 MADL PACKAGING SUPERVISOR, JENNY L V72.31 ROUTINE PELVIC EXAM 05/12/2008 MADL PACKAGING SUPERVISOR, JENNY L 625.0 DYSPAREUNIA 05/12/2008 MADL PACKAGING SUPERVISOR, JENNY L V25.40 visit for: contraceptive surveillance 05/12/2008 MADL PACKAGING SUPERVISOR, JENNY L V72.31 ROUTINE PELVIC EXAM 05/12/2008 CHRIS HELM DO K 625.0 DYSPAREUNIA 05/12/2008 CHRIS HELM DO V25.40 visit for: contraceptive surveillance 05/12/2008 CHRIS HELM DO V72.31 ROUTINE PELVIC EXAM 06/15/2008 626.8 DYSFUNCTIONAL UTERINE BLEEDING 06/15/2008 CHRIS HELM DO 626.8 DYSFUNCTIONAL UTERINE BLEEDING 06/15/2008 626.8 DYSFUNCTIONAL UTERINE BLEEDING 06/15/2008 CHRIS HELM DO 626.8 DYSFUNCTIONAL UTERINE BLEEDING 06/15/2008 TIMI SANTOS MD 626.8 DYSFUNCTIONAL UTERINE BLEEDING 06/15/2008 CAMMY TAI LCPC 626.8 DYSFUNCTIONAL UTERINE BLEEDING 06/15/2008 TIMI SANTOS MD 626.8 DYSFUNCTIONAL UTERINE BLEEDING 06/15/2008 TIMI SANTOS MD 626.8 DYSFUNCTIONAL UTERINE BLEEDING 06/15/2008 TIMI SANTOS MD 626.8 DYSFUNCTIONAL UTERINE BLEEDING 06/15/2008 TIMI SANTOS MD 626.8 DYSFUNCTIONAL UTERINE BLEEDING 06/15/2008 TIMI SANTOS MD 626.8 DYSFUNCTIONAL UTERINE BLEEDING 06/15/2008 CHRIS HELM DO 626.8 DYSFUNCTIONAL UTERINE BLEEDING 06/15/2008 DOMENIC CUELLAR APRN A 626.8 DYSFUNCTIONAL UTERINE BLEEDING 06/15/2008 CAMMY TAI LCPC 626.8 DYSFUNCTIONAL UTERINE BLEEDING 06/15/2008 CHRIS HELM DO K 626.8 DYSFUNCTIONAL UTERINE BLEEDING 06/15/2008 ANA MONREAL PHD 626.8 DYSFUNCTIONAL UTERINE BLEEDING 06/15/2008 DOMENIC CUELLAR APRN A 626.8 DYSFUNCTIONAL UTERINE BLEEDING 06/15/2008 MADL PACKAGING SUPERVISOR, JENNY L 626.8 DYSFUNCTIONAL UTERINE BLEEDING 06/15/2008 ANA MONREAL PHD 626.8 DYSFUNCTIONAL UTERINE BLEEDING 06/15/2008 ANA MONREAL PHD 626.8 DYSFUNCTIONAL UTERINE BLEEDING 06/15/2008 MADL PACKAGING SUPERVISOR, JENNY L 626.8 DYSFUNCTIONAL UTERINE BLEEDING 06/15/2008 GWEN STYLES MD 626.8 DYSFUNCTIONAL UTERINE BLEEDING 06/15/2008 ANA MONREAL PHD 626.8 DYSFUNCTIONAL UTERINE BLEEDING 06/15/2008 ANA MONREAL PHD 626.8 DYSFUNCTIONAL UTERINE BLEEDING 06/15/2008 ANA MONREAL PHD 626.8 DYSFUNCTIONAL UTERINE BLEEDING 06/15/2008 LUCIANO DIEHL, JENNY L 626.8 DYSFUNCTIONAL UTERINE BLEEDING 06/15/2008 ANA MONREAL PHD 626.8 DYSFUNCTIONAL UTERINE BLEEDING 06/15/2008 ANA MONREAL PHD 626.8 DYSFUNCTIONAL UTERINE BLEEDING 06/15/2008 LUCIANO DIHEL, JENNY L 626.8 DYSFUNCTIONAL UTERINE BLEEDING 06/15/2008 ANA MONREAL PHD 626.8 DYSFUNCTIONAL UTERINE BLEEDING 06/15/2008 CHRIS HELM DO K 626.8 DYSFUNCTIONAL UTERINE BLEEDING 06/15/2008 MADL PACKAGING SUPERVISOR, JENNY L 626.8 DYSFUNCTIONAL UTERINE BLEEDING 06/15/2008 CHACORTA PACKAGING SUPERVISOR, JENNY L 626.8 DYSFUNCTIONAL UTERINE BLEEDING 06/15/2008 ANA MONREAL PHD 626.8 DYSFUNCTIONAL UTERINE BLEEDING 06/15/2008 ANA MONREAL PHD 626.8 DYSFUNCTIONAL UTERINE BLEEDING 06/15/2008 MAD PACKAGING SUPERVISOR, JENNY L 626.8 DYSFUNCTIONAL UTERINE BLEEDING 06/15/2008 MADL PACKAGING SUPERVISOR, JENNY L 626.8 DYSFUNCTIONAL UTERINE BLEEDING 06/15/2008 CHRIS HELM DO K 626.8 DYSFUNCTIONAL UTERINE BLEEDING 08/13/2008 V25.49 Gynecologic Service Prescrip Of Contracept Agent - Repeat Rx 08/13/2008 CHRIS HELM DO V25.49 Gynecologic Service Prescrip Of Contracept Agent - Repeat Rx 08/13/2008 V25.49 Gynecologic Service Prescrip Of Contracept Agent - Repeat Rx 08/13/2008 CHRIS HELM DO V25.49 Gynecologic Service Prescrip Of Contracept Agent - Repeat Rx 08/13/2008 TIMI SANTOS MD V25.49 Gynecologic Service Prescrip Of Contracept Agent - Repeat Rx 08/13/2008 CAMMY TAI LCPC V25.49 Gynecologic Service Prescrip Of Contracept Agent - Repeat Rx 08/13/2008 TIMI SANTOS MD V25.49 Gynecologic Service Prescrip Of Contracept Agent - Repeat Rx 08/13/2008 TIMI SANTOS MD V25.49 Gynecologic Service Prescrip Of Contracept Agent - Repeat Rx 08/13/2008 TIMI SANTOS MD V25.49 Gynecologic Service Prescrip Of Contracept Agent - Repeat Rx 08/13/2008 TIMI SANTOS MD V25.49 Gynecologic Service Prescrip Of Contracept Agent - Repeat Rx 08/13/2008 TIMI SANTOS MD V25.49 Gynecologic Service Prescrip Of Contracept Agent - Repeat Rx 08/13/2008 CHRIS HELM DO V25.49 Gynecologic Service Prescrip Of Contracept Agent - Repeat Rx 08/13/2008 DOMENIC CUELLAR APRN V25.49 Gynecologic Service Prescrip Of Contracept Agent - Repeat Rx 08/13/2008 CAMMY TAI LCPC V25.49 Gynecologic Service Prescrip Of Contracept Agent - Repeat Rx 08/13/2008 CHRIS HELM DO V25.49 Gynecologic Service Prescrip Of Contracept Agent - Repeat Rx 08/13/2008 ANA MONREAL PHD V25.49 Gynecologic Service Prescrip Of Contracept Agent - Repeat Rx 08/13/2008 DOEMNIC CUELLAR APRN V25.49 Gynecologic Service Prescrip Of Contracept Agent - Repeat Rx 08/13/2008 JENNY WOLF APRN V25.49 Gynecologic Service Prescrip Of Contracept Agent - Repeat Rx 08/13/2008 ANA MONREAL PHD V25.49 Gynecologic Service Prescrip Of Contracept Agent - Repeat Rx 08/13/2008 ANA MONREAL PHD V25.49 Gynecologic Service Prescrip Of Contracept Agent - Repeat Rx 08/13/2008 MADL PACKAGING SUPERVISORJENNY V25.49 Gynecologic Service Prescrip Of Contracept Agent - Repeat Rx 08/13/2008 GWEN STYLES MD V25.49 Gynecologic Service Prescrip Of Contracept Agent - Repeat Rx 08/13/2008 ANA MONREAL PHD V25.49 Gynecologic Service Prescrip Of Contracept Agent - Repeat Rx 08/13/2008 ANA MONREAL PHD V25.49 Gynecologic Service Prescrip Of Contracept Agent - Repeat Rx 08/13/2008 ANA MONREAL PHD V25.49 Gynecologic Service Prescrip Of Contracept Agent - Repeat Rx 08/13/2008 CHACORTAL PACKAGING SUPERVISORJENNY V25.49 Gynecologic Service Prescrip Of Contracept Agent - Repeat Rx 08/13/2008 ANA MONREAL PHD V25.49 Gynecologic Service Prescrip Of Contracept Agent - Repeat Rx 08/13/2008 ANA MONREAL PHD V25.49 Gynecologic Service Prescrip Of Contracept Agent - Repeat Rx 08/13/2008 CHACORTA PACKAGING SUPERVISORJENNY V25.49 Gynecologic Service Prescrip Of Contracept Agent - Repeat Rx 08/13/2008 ANA MONREAL PHD V25.49 Gynecologic Service Prescrip Of Contracept Agent - Repeat Rx 08/13/2008 CHRIS HELM DO V25.49 Gynecologic Service Prescrip Of Contracept Agent - Repeat Rx 08/13/2008 JENNY WOLF APRN V25.49 Gynecologic Service Prescrip Of Contracept Agent - Repeat Rx 08/13/2008 CHACORTA JENNY DIEHL V25.49 Gynecologic Service Prescrip Of Contracept Agent - Repeat Rx 08/13/2008 ANA MONREAL PHD V25.49 Gynecologic Service Prescrip Of Contracept Agent - Repeat Rx 08/13/2008 NAA MONREAL PHD V25.49 Gynecologic Service Prescrip Of Contracept Agent - Repeat Rx 08/13/2008 JENNY WOLF APRN V25.49 Gynecologic Service Prescrip Of Contracept Agent - Repeat Rx 08/13/2008 CHACORTA JENNY DIEHL V25.49 Gynecologic Service Prescrip Of Contracept Agent - Repeat Rx 08/13/2008 CHRIS HELM DO V25.49 Gynecologic Service Prescrip Of Contracept Agent - Repeat Rx 09/21/2008 724.5 BACKACHE 09/21/2008 HELM DO, CHRIS K 724.5 BACKACHE 09/21/2008 724.5 BACKACHE 09/21/2008 HELM DO, CHRIS K 724.5 BACKACHE 09/21/2008 TOM TREVINO, TIMI 724.5 BACKACHE 09/21/2008 ZAIRE SWIFT, CAMMY B 724.5 BACKACHE 09/21/2008 TOM TREVINO, TIMI 724.5 BACKACHE 09/21/2008 TOM TREVINO, TIMI 724.5 BACKACHE 09/21/2008 TOM TREVINO, TIMI 724.5 BACKACHE 09/21/2008 TOM TREVINO, TIMI 724.5 BACKACHE 09/21/2008 TOM TREVINO, TIMI 724.5 BACKACHE 09/21/2008 HLEM DO, CHRIS K 724.5 BACKACHE 09/21/2008 ALISA PACKAGING SUPERVISOR, DOMENIC A 724.5 BACKACHE 09/21/2008 ZAIRE SWIFT, CAMMY B 724.5 BACKACHE 09/21/2008 HELM DO, CHRIS K 724.5 BACKACHE 09/21/2008 RAH PHD, ANA A 724.5 BACKACHE 09/21/2008 ALISA PACKAGING SUPERVISOR, DOMENIC A 724.5 BACKACHE 09/21/2008 MADL PACKAGING SUPERVISOR, JENNY L 724.5 BACKACHE 09/21/2008 RAH PHD, ANA A 724.5 BACKACHE 09/21/2008 RAH PHD, ANA A 724.5 BACKACHE 09/21/2008 MADL PACKAGING SUPERVISOR, JENNY L 724.5 BACKACHE 09/21/2008 JENSEN TREVINO, GWEN 724.5 BACKACHE 09/21/2008 RAH PHD, ANA A 724.5 BACKACHE 09/21/2008 RAH PHD, ANA A 724.5 BACKACHE 09/21/2008 RAH PHD, ANA A 724.5 BACKACHE 09/21/2008 MADL PACKAGING SUPERVISOR, JENNY L 724.5 BACKACHE 09/21/2008 RAH PHD, ANA A 724.5 BACKACHE 09/21/2008 RAH PHD, ANA A 724.5 BACKACHE 09/21/2008 MADL PACKAGING SUPERVISOR, JENNY L 724.5 BACKACHE 09/21/2008 RAH PHD, ANA A 724.5 BACKACHE 09/21/2008 HELM DO, CHRIS K 724.5 BACKACHE 09/21/2008 MADL PACKAGING SUPERVISOR, JENNY L 724.5 BACKACHE 09/21/2008 MADL PACKAGING SUPERVISOR, JENNY L 724.5 BACKACHE 09/21/2008 BOEJOANN PHD, ANA A 724.5 BACKACHE 09/21/2008 BOEJOANN PHD, ANA A 724.5 BACKACHE 09/21/2008 MADL PACKAGING SUPERVISOR, JENNY L 724.5 BACKACHE 09/21/2008 MADL PACKAGING SUPERVISOR, JENNY L 724.5 BACKACHE 09/21/2008 HELM DO, CHRIS K 724.5 BACKACHE 11/03/2008 V74.5 Screening Examination For Venereal Disease 11/03/2008 CHRIS HELM DO K V74.5 Screening Examination For Venereal Disease 11/03/2008 V74.5 Screening Examination For Venereal Disease 11/03/2008 MYNOR HELM DOA K V74.5 Screening Examination For Venereal Disease 11/03/2008 TIMI SANTOS MD V74.5 Screening Examination For Venereal Disease 11/03/2008 CAMMY TAI LCPC V74.5 Screening Examination For Venereal Disease 11/03/2008 TIMI SANTOS MD V74.5 Screening Examination For Venereal Disease 11/03/2008 TIMI SANTOS MD V74.5 Screening Examination For Venereal Disease 11/03/2008 TIMI SANTOS MD V74.5 Screening Examination For Venereal Disease 11/03/2008 TIMI SANTOS MD V74.5 Screening Examination For Venereal Disease 11/03/2008 TIMI SANTOS MD V74.5 Screening Examination For Venereal Disease 11/03/2008 HELM CHRIS CHENG K V74.5 Screening Examination For Venereal Disease 11/03/2008 ALISALYNN DIEHL, DOMENIC A V74.5 Screening Examination For Venereal Disease 11/03/2008 CAMMY TAI LCPC V74.5 Screening Examination For Venereal Disease 11/03/2008 HELM DO, CHRIS K V74.5 Screening Examination For Venereal Disease 11/03/2008 BOEDBOUT PHD, ANA A V74.5 Screening Examination For Venereal Disease 11/03/2008 ALISA DIEHL, DOMENIC A V74.5 Screening Examination For Venereal Disease 11/03/2008 MADL PACKAGING SUPERVISOR, JENNY L V74.5 Screening Examination For Venereal Disease 11/03/2008 BOEDBOUT PHD, ANA A V74.5 Screening Examination For Venereal Disease 11/03/2008 BOEDBOUT PHD, ANA A V74.5 Screening Examination For Venereal Disease 11/03/2008 MADL PACKAGING SUPERVISOR, JENNY L V74.5 Screening Examination For Venereal Disease 11/03/2008 JENSEN TREVINO, GWEN V74.5 Screening Examination For Venereal Disease 11/03/2008 BOEDBOUT PHD, ANA A V74.5 Screening Examination For Venereal Disease 11/03/2008 BOEDBOUT PHD, ANA A V74.5 Screening Examination For Venereal Disease 11/03/2008 BOEDBOUT PHD, ANA A V74.5 Screening Examination For Venereal Disease 11/03/2008 MADL PACKAGING SUPERVISOR, JENNY L V74.5 Screening Examination For Venereal Disease 11/03/2008 BOEDBOUT PHD, ANA A V74.5 Screening Examination For Venereal Disease 11/03/2008 BOEDBOUT PHD, ANA A V74.5 Screening Examination For Venereal Disease 11/03/2008 MADL PACKAGING SUPERVISOR, JENNY L V74.5 Screening Examination For Venereal Disease 11/03/2008 BOEJOANN PHD, ANA A V74.5 Screening Examination For Venereal Disease 11/03/2008 HELM DO, CHRIS K V74.5 Screening Examination For Venereal Disease 11/03/2008 MADL PACKAGING SUPERVISOR, JENNY L V74.5 Screening Examination For Venereal Disease 11/03/2008 MADL PACKAGING SUPERVISOR, JENNY L V74.5 Screening Examination For Venereal Disease 11/03/2008 BOEDBOUT PHD, ANA A V74.5 Screening Examination For Venereal Disease 11/03/2008 BOEJOANN PHD, ANA A V74.5 Screening Examination For Venereal Disease 11/03/2008 LUCIANO DIEHL, JENNY L V74.5 Screening Examination For Venereal Disease 11/03/2008 LUCIANO DIEHL, JENNY L V74.5 Screening Examination For Venereal Disease 11/03/2008 CHRIS HELM DO K V74.5 Screening Examination For Venereal Disease 11/17/2008 054.10 HERPES SIMPLEX TYPE II 11/17/2008 462 Pharyngitis Acute 11/17/2008 465.9 Upper Respiratory Infection 11/17/2008 616.10 Bacterial Vaginosis 11/17/2008 ALICJA CHENG CHRIS K 054.10 HERPES SIMPLEX TYPE II 11/17/2008 ALICJA CHENG CHRIS K 462 Pharyngitis Acute 11/17/2008 ALICJA CHENG CHRIS K 465.9 Upper Respiratory Infection 11/17/2008 ALICJA CHENG, CHRIS K 616.10 Bacterial Vaginosis 11/17/2008 054.10 HERPES SIMPLEX TYPE II 11/17/2008 462 Pharyngitis Acute 11/17/2008 465.9 Upper Respiratory Infection 11/17/2008 616.10 Bacterial Vaginosis 11/17/2008 ALICJA CHENG CHRIS K 054.10 HERPES SIMPLEX TYPE II 11/17/2008 ALICJA CHENG CHRIS K 462 Pharyngitis Acute 11/17/2008 ALICJA CHENG CHRIS K 465.9 Upper Respiratory Infection 11/17/2008 ALICJA CHENG, CHRIS K 616.10 Bacterial Vaginosis 11/17/2008 TIMI SANTOS MD 054.10 HERPES SIMPLEX TYPE II 11/17/2008 TIMI SANTOS MD 462 Pharyngitis Acute 11/17/2008 TIMI SANTOS MD 465.9 Upper Respiratory Infection 11/17/2008 TIMI SANTOS MD 616.10 Bacterial Vaginosis 11/17/2008 CAMMY TAI LCPC 054.10 HERPES SIMPLEX TYPE II 11/17/2008 CAMMY TAI LCPC 462 Pharyngitis Acute 11/17/2008 CAMMY TAI LCPC 465.9 Upper Respiratory Infection 11/17/2008 CAMMY TAI LCPC B 616.10 Bacterial Vaginosis 11/17/2008 TIMI SANTOS MD 054.10 HERPES SIMPLEX TYPE II 11/17/2008 TIMI SANTOS MD 46Cynthia Pharyngitis Acute 11/17/2008 TOM TREVINO, TIMI 465.9 Upper Respiratory Infection 11/17/2008 TIMI SANTOS MD 616.10 Bacterial Vaginosis 11/17/2008 TIMI SANTOS MD 054.10 HERPES SIMPLEX TYPE II 11/17/2008 TOM TREVINO, TIMI 46Cynthia Pharyngitis Acute 11/17/2008 TIMI SANTOS MD 465.9 Upper Respiratory Infection 11/17/2008 TIMI SANTOS MD 616.10 Bacterial Vaginosis 11/17/2008 TIMI SANTOS MD 054.10 HERPES SIMPLEX TYPE II 11/17/2008 TOM TREVINO, TIMI 46Cynthia Pharyngitis Acute 11/17/2008 TOM TREVINO, TIMI 465.9 Upper Respiratory Infection 11/17/2008 TIMI SANTOS MD 616.10 Bacterial Vaginosis 11/17/2008 TIMI SANTOS MD 054.10 HERPES SIMPLEX TYPE II 11/17/2008 TOM TREVINO, TIMI 46Cynthia Pharyngitis Acute 11/17/2008 TIMI SANTOS MD 465.9 Upper Respiratory Infection 11/17/2008 TIMI SANTOS MD 616.10 Bacterial Vaginosis 11/17/2008 TIMI SANTOS MD 054.10 HERPES SIMPLEX TYPE II 11/17/2008 TIMI SANTOS MD 46Cynthia Pharyngitis Acute 11/17/2008 TIMI SANTOS MD 465.9 Upper Respiratory Infection 11/17/2008 TIMI SANTOS MD 616.10 Bacterial Vaginosis 11/17/2008 CHRIS HELM DO K 054.10 HERPES SIMPLEX TYPE II 11/17/2008 MYNOR HELM DOA K 462 Pharyngitis Acute 11/17/2008 MYNOR HELM DOA K 465.9 Upper Respiratory Infection 11/17/2008 HELM MYNOR CHENGA K 616.10 Bacterial Vaginosis 11/17/2008 DOMENIC CUELLAR APRN A 054.10 HERPES SIMPLEX TYPE II 11/17/2008 DOMENIC CUELLAR APRN A 462 Pharyngitis Acute 11/17/2008 DOMENIC CUELLAR APRN A 465.9 Upper Respiratory Infection 11/17/2008 DOMENIC CUELLAR APRN A 616.10 Bacterial Vaginosis 11/17/2008 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, CAMMY B 054.10 HERPES SIMPLEX TYPE II 11/17/2008 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, CAMMY B 462 Pharyngitis Acute 11/17/2008 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, CAMMY B 465.9 Upper Respiratory Infection 11/17/2008 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, CAMMY B 616.10 Bacterial Vaginosis 11/17/2008 HELM DO, CHRIS K 054.10 HERPES SIMPLEX TYPE II 11/17/2008 HELM DO, CHRIS K 462 Pharyngitis Acute 11/17/2008 HELM DO, CHRIS K 465.9 Upper Respiratory Infection 11/17/2008 HELM DO, CHRIS K 616.10 Bacterial Vaginosis 11/17/2008 RAH SIFUENTES, ANA Servin 054.10 HERPES SIMPLEX TYPE II 11/17/2008 ANA MONREAL PHD 462 Pharyngitis Acute 11/17/2008 ANA MONREAL PHD 465.9 Upper Respiratory Infection 11/17/2008 RAH SIFUENTES, ANA Servin 616.10 Bacterial Vaginosis 11/17/2008 ALISA PACKAGING SUPERVISOR, DOMENIC A 054.10 HERPES SIMPLEX TYPE II 11/17/2008 ALISA PACKAGING SUPERVISOR, DOMENIC A 462 Pharyngitis Acute 11/17/2008 ALISA PACKAGING SUPERVISOR, DOMENIC A 465.9 Upper Respiratory Infection 11/17/2008 ALISA PACKAGING SUPERVISOR, DOMENIC A 616.10 Bacterial Vaginosis 11/17/2008 MADL PACKAGING SUPERVISOR, JENNY L 054.10 HERPES SIMPLEX TYPE II 11/17/2008 MADL PACKAGING SUPERVISOR, JENNY L 462 Pharyngitis Acute 11/17/2008 MADL PACKAGING SUPERVISOR, JENNY L 465.9 Upper Respiratory Infection 11/17/2008 MADL PACKAGING SUPERVISOR, JENNY L 616.10 Bacterial Vaginosis 11/17/2008 ANA MONREAL PHD 054.10 HERPES SIMPLEX TYPE II 11/17/2008 ANA MONREAL PHD 462 Pharyngitis Acute 11/17/2008 ANA MONREAL PHD 465.9 Upper Respiratory Infection 11/17/2008 ANA MONREAL PHD 616.10 Bacterial Vaginosis 11/17/2008 BOEKHOUT PHD, ANA A 054.10 HERPES SIMPLEX TYPE II 11/17/2008 RAH PHD, ANA A 462 Pharyngitis Acute 11/17/2008 [facility] PHD, ANA A 465.9 Upper Respiratory Infection 11/17/2008 BOEJOANN PHD, ANA A 616.10 Bacterial Vaginosis 11/17/2008 MAD[employer] PACKAGING SUPERVISOR, JENNY L 054.10 HERPES SIMPLEX TYPE II 11/17/2008 MADL PACKAGING SUPERVISOR, JENNY L 462 Pharyngitis Acute 11/17/2008 MADL PACKAGING SUPERVISOR, JENNY L 465.9 Upper Respiratory Infection 11/17/2008 MADL PACKAGING SUPERVISOR, JENNY L 616.10 Bacterial Vaginosis 11/17/2008 JENSEN TREVINO, GWEN 054.10 HERPES SIMPLEX TYPE II 11/17/2008 JENSEN TREVINO, BASSHAHANA 462 Pharyngitis Acute 11/17/2008 JENSEN TREVINO, BASSHAHANA 465.9 Upper Respiratory Infection 11/17/2008 JENSEN TREVINO, BASSHAHANA 616.10 Bacterial Vaginosis 11/17/2008 [facility] PHD, ANA A 054.10 HERPES SIMPLEX TYPE II 11/17/2008 [facility] PHD, ANA A 462 Pharyngitis Acute 11/17/2008 [facility] PHD, ANA A 465.9 Upper Respiratory Infection 11/17/2008 [facility] PHD, ANA A 616.10 Bacterial Vaginosis 11/17/2008 [facility] PHD, ANA A 054.10 HERPES SIMPLEX TYPE II 11/17/2008 [facility] PHD, ANA A 462 Pharyngitis Acute 11/17/2008 [facility] PHD, ANA A 465.9 Upper Respiratory Infection 11/17/2008 [facility] PHD, ANA A 616.10 Bacterial Vaginosis 11/17/2008 [facility] PHD, ANA A 054.10 HERPES SIMPLEX TYPE II 11/17/2008 [facility] PHD, ANA A 462 Pharyngitis Acute 11/17/2008 [facility] PHD, ANA A 465.9 Upper Respiratory Infection 11/17/2008 [facility] PHD, ANA A 616.10 Bacterial Vaginosis 11/17/2008 MADL PACKAGING SUPERVISOR, JENNY L 054.10 HERPES SIMPLEX TYPE II 11/17/2008 MADL PACKAGING SUPERVISOR, JENNY L 462 Pharyngitis Acute 11/17/2008 MADL PACKAGING SUPERVISOR, JENNY L 465.9 Upper Respiratory Infection 11/17/2008 MADL PACKAGING SUPERVISOR, JENNY L 616.10 Bacterial Vaginosis 11/17/2008 BOEJOANN PHD, ANA A 054.10 HERPES SIMPLEX TYPE II 11/17/2008 BOEJOANN PHD, ANA A 462 Pharyngitis Acute 11/17/2008 BOEJOANN PHD, ANA A 465.9 Upper Respiratory Infection 11/17/2008 BOEJOANN PHD, ANA A 616.10 Bacterial Vaginosis 11/17/2008 RA[facility] PHD, NAA A 054.10 HERPES SIMPLEX TYPE II 11/17/2008 BOEJOANN PHD, ANA A 462 Pharyngitis Acute 11/17/2008 BOEJOANN PHD, ANA A 465.9 Upper Respiratory Infection 11/17/2008 BOEJOANN PHD, ANA A 616.10 Bacterial Vaginosis 11/17/2008 MADL PACKAGING SUPERVISOR, JENNY L 054.10 HERPES SIMPLEX TYPE II 11/17/2008 MADL PACKAGING SUPERVISOR, JENNY L 462 Pharyngitis Acute 11/17/2008 MADL PACKAGING SUPERVISOR, JENNY L 465.9 Upper Respiratory Infection 11/17/2008 MADL PACKAGING SUPERVISOR, JENNY L 616.10 Bacterial Vaginosis 11/17/2008 BOEJOANN PHD, ANA A 054.10 HERPES SIMPLEX TYPE II 11/17/2008 RA[facility] PHD, ANA A 462 Pharyngitis Acute 11/17/2008 [facility] PHD, ANA A 465.9 Upper Respiratory Infection 11/17/2008 [facility] PHD, ANA A 616.10 Bacterial Vaginosis 11/17/2008 HELM DO, CHRIS K 054.10 HERPES SIMPLEX TYPE II 11/17/2008 HELM DO, CHRIS K 462 Pharyngitis Acute 11/17/2008 HELM DO, CHRIS K 465.9 Upper Respiratory Infection 11/17/2008 HELM DO, CHRIS K 616.10 Bacterial Vaginosis 11/17/2008 MADL PACKAGING SUPERVISOR, JENNY L 054.10 HERPES SIMPLEX TYPE II 11/17/2008 MADL PACKAGING SUPERVISOR, JENNY L 462 Pharyngitis Acute 11/17/2008 MADL PACKAGING SUPERVISOR, JENNY L 465.9 Upper Respiratory Infection 11/17/2008 MADL PACKAGING SUPERVISOR, JENNY L 616.10 Bacterial Vaginosis 11/17/2008 MADL PACKAGING SUPERVISOR, JENNY L 054.10 HERPES SIMPLEX TYPE II 11/17/2008 MADL PACKAGING SUPERVISOR, JENNY L 462 Pharyngitis Acute 11/17/2008 MADL PACKAGING SUPERVISOR, JENNY L 465.9 Upper Respiratory Infection 11/17/2008 MADL PACKAGING SUPERVISOR, JENNY L 616.10 Bacterial Vaginosis 11/17/2008 [facility] PHD, ANA A 054.10 HERPES SIMPLEX TYPE II 11/17/2008 RA[facility] PHD, ANA A 462 Pharyngitis Acute 11/17/2008 RA[facility] PHD, ANA A 465.9 Upper Respiratory Infection 11/17/2008 RAH PHD, ANA A 616.10 Bacterial Vaginosis 11/17/2008 RAH PHD, ANA A 054.10 HERPES SIMPLEX TYPE II 11/17/2008 RA[facility] PHD, ANA A 462 Pharyngitis Acute 11/17/2008 RAH PHD, ANA A 465.9 Upper Respiratory Infection 11/17/2008 RA[facility] PHD, ANA A 616.10 Bacterial Vaginosis 11/17/2008 [facility] PACKAGING SUPERVISOR, JENNY L 054.10 HERPES SIMPLEX TYPE II 11/17/2008 MAD PACKAGING SUPERVISOR, JENNY L 462 Pharyngitis Acute 11/17/2008 MADL PACKAGING SUPERVISOR, JENNY L 465.9 Upper Respiratory Infection 11/17/2008 MADL PACKAGING SUPERVISOR, JENNY L 616.10 Bacterial Vaginosis 11/17/2008 MADL PACKAGING SUPERVISOR, JENNY L 054.10 HERPES SIMPLEX TYPE II 11/17/2008 MADL PACKAGING SUPERVISOR, JENNY L 462 Pharyngitis Acute 11/17/2008 MADL PACKAGING SUPERVISOR, JENNY L 465.9 Upper Respiratory Infection 11/17/2008 MADL PACKAGING SUPERVISOR, JENNY L 616.10 Bacterial Vaginosis 11/17/2008 CHRIS HELM DO 054.10 HERPES SIMPLEX TYPE II 11/17/2008 CHRIS HELM DO K 462 Pharyngitis Acute 11/17/2008 ALICJA CHENG, CHRIS K 465.9 Upper Respiratory Infection 11/17/2008 ALICJA CHENG, CHRIS K 616.10 Bacterial Vaginosis 01/04/2009 V05.9 IMMUNIZATION, SINGLE, UNSPEC. 01/04/2009 CHRIS HELM DO K V05.9 IMMUNIZATION, SINGLE, UNSPEC. 01/04/2009 V05.9 IMMUNIZATION, SINGLE, UNSPEC. 01/04/2009 CHRIS HELM DO K V05.9 IMMUNIZATION, SINGLE, UNSPEC. 01/04/2009 TOM TREVINO, TIMI V05.9 IMMUNIZATION, SINGLE, UNSPEC. 01/04/2009 CAMMY TAI LCPC V05.9 IMMUNIZATION, SINGLE, UNSPEC. 01/04/2009 TOM TREVINO, TIMI V05.9 IMMUNIZATION, SINGLE, UNSPEC. 01/04/2009 TOM TREVINO, TIMI V05.9 IMMUNIZATION, SINGLE, UNSPEC. 01/04/2009 TOM TREVINO, TIMI V05.9 IMMUNIZATION, SINGLE, UNSPEC. 01/04/2009 TOM TREVINO, TIMI V05.9 IMMUNIZATION, SINGLE, UNSPEC. 01/04/2009 TOM TREVINO, TIMI V05.9 IMMUNIZATION, SINGLE, UNSPEC. 01/04/2009 CHRIS HELM DO K V05.9 IMMUNIZATION, SINGLE, UNSPEC. 01/04/2009 ALISA DIEHL, DOMENIC A V05.9 IMMUNIZATION, SINGLE, UNSPEC. 01/04/2009 CAMMY TAI LCPC V05.9 IMMUNIZATION, SINGLE, UNSPEC. 01/04/2009 CHRIS HELM DO K V05.9 IMMUNIZATION, SINGLE, UNSPEC. 01/04/2009 RAH SIFUENTES, ANA Servin V05.9 IMMUNIZATION, SINGLE, UNSPEC. 01/04/2009 DOMENIC CUELLAR APRN A V05.9 IMMUNIZATION, SINGLE, UNSPEC. 01/04/2009 JENNY WOLF APRN V05.9 IMMUNIZATION, SINGLE, UNSPEC. 01/04/2009 RAH SIFUENTES, ANA Servin V05.9 IMMUNIZATION, SINGLE, UNSPEC. 01/04/2009 RAH SIFUENTES, ANA Servin V05.9 IMMUNIZATION, SINGLE, UNSPEC. 01/04/2009 MADL PACKAGING SUPERVISOR, JENNY L V05.9 IMMUNIZATION, SINGLE, UNSPEC. 01/04/2009 JENSEN TREVINO, GWEN V05.9 IMMUNIZATION, SINGLE, UNSPEC. 01/04/2009 [facility] PHD, ANA A V05.9 IMMUNIZATION, SINGLE, UNSPEC. 01/04/2009 [facility] PHD, ANA A V05.9 IMMUNIZATION, SINGLE, UNSPEC. 01/04/2009 [facility] PHD, ANA A V05.9 IMMUNIZATION, SINGLE, UNSPEC. 01/04/2009 MADL PACKAGING SUPERVISOR, JENNY L V05.9 IMMUNIZATION, SINGLE, UNSPEC. 01/04/2009 [facility] PHD, ANA A V05.9 IMMUNIZATION, SINGLE, UNSPEC. 01/04/2009 [facility] PHD, ANA A V05.9 IMMUNIZATION, SINGLE, UNSPEC. 01/04/2009 MADL PACKAGING SUPERVISOR, JENNY L V05.9 IMMUNIZATION, SINGLE, UNSPEC. 01/04/2009 [facility] PHD, ANA A V05.9 IMMUNIZATION, SINGLE, UNSPEC. 01/04/2009 HELM DO, CHRIS K V05.9 IMMUNIZATION, SINGLE, UNSPEC. 01/04/2009 MADL PACKAGING SUPERVISOR, JENNY L V05.9 IMMUNIZATION, SINGLE, UNSPEC. 01/04/2009 MADL PACKAGING SUPERVISOR, JENNY L V05.9 IMMUNIZATION, SINGLE, UNSPEC. 01/04/2009 [facility] PHD, ANA A V05.9 IMMUNIZATION, SINGLE, UNSPEC. 01/04/2009 [facility] PHD, ANA A V05.9 IMMUNIZATION, SINGLE, UNSPEC. 01/04/2009 MADL PACKAGING SUPERVISOR, JENNY L V05.9 IMMUNIZATION, SINGLE, UNSPEC. 01/04/2009 MADL PACKAGING SUPERVISOR, JENNY L V05.9 IMMUNIZATION, SINGLE, UNSPEC. 01/04/2009 HELM DO, CHRIS K V05.9 IMMUNIZATION, SINGLE, UNSPEC. 03/30/2009 729.2 RADICULOPATHY 03/30/2009 HELM DO, CHRIS Moss 729.2 RADICULOPATHY 03/30/2009 729.2 RADICULOPATHY 03/30/2009 HELM DOCHRIS 729.2 RADICULOPATHY 03/30/2009 TOM TREVINO, TIMI 729.2 RADICULOPATHY 03/30/2009 ZAIRE SWIFT, CAMMY B 729.2 RADICULOPATHY 03/30/2009 TOM TREVINO, TIMI 729.2 RADICULOPATHY 03/30/2009 TOM TREVINO, TIMI 729.2 RADICULOPATHY 03/30/2009 TOM TREVINO, TIMI 729.2 RADICULOPATHY 03/30/2009 TOM TREVINO, TIMI 729.2 RADICULOPATHY 03/30/2009 TOM TREVINO, TIMI 729.2 RADICULOPATHY 03/30/2009 HELM DO, CHRIS K 729.2 RADICULOPATHY 03/30/2009 ALISA PACKAGING SUPERVISOR, DOMENIC A 729.2 RADICULOPATHY 03/30/2009 ZAIRE SWIFT, CAMMY B 729.2 RADICULOPATHY 03/30/2009 HELM DO, CHRIS K 729.2 RADICULOPATHY 03/30/2009 [facility] PHD, ANA A 729.2 RADICULOPATHY 03/30/2009 ALISA PACKAGING SUPERVISOR, DOMENIC A 729.2 RADICULOPATHY 03/30/2009 MAD PACKAGING SUPERVISOR, JENNY L 729.2 RADICULOPATHY 03/30/2009 [facility] PHD, ANA A 729.2 RADICULOPATHY 03/30/2009 [facility] PHD, ANA A 729.2 RADICULOPATHY 03/30/2009 MAD PACKAGING SUPERVISOR, JENNY L 729.2 RADICULOPATHY 03/30/2009 GWEN STYLES MD 729.2 RADICULOPATHY 03/30/2009 [facility] PHD, ANA A 729.2 RADICULOPATHY 03/30/2009 [facility] PHD, ANA A 729.2 RADICULOPATHY 03/30/2009 [facility] PHD, ANA A 729.2 RADICULOPATHY 03/30/2009 MADL PACKAGING SUPERVISOR, JENNY L 729.2 RADICULOPATHY 03/30/2009 [facility] PHD, ANA A 729.2 RADICULOPATHY 03/30/2009 [facility] PHD, ANA A 729.2 RADICULOPATHY 03/30/2009 MADL PACKAGING SUPERVISOR, JENNY L 729.2 RADICULOPATHY 03/30/2009 [facility] PHD, ANA A 729.2 RADICULOPATHY 03/30/2009 HELM DO, CHRIS K 729.2 RADICULOPATHY 03/30/2009 MADL PACKAGING SUPERVISOR, JENNY L 729.2 RADICULOPATHY 03/30/2009 MADL PACKAGING SUPERVISOR, JENNY L 729.2 RADICULOPATHY 03/30/2009 [facility] PHD, ANA A 729.2 RADICULOPATHY 03/30/2009 [facility] PHD, ANA A 729.2 RADICULOPATHY 03/30/2009 MADL PACKAGING SUPERVISOR, JENNY L 729.2 RADICULOPATHY 03/30/2009 MADL PACKAGING SUPERVISOR, JENNY L 729.2 RADICULOPATHY 03/30/2009 HELM DO, CHRIS K 729.2 RADICULOPATHY 07/25/2009 296.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 07/25/2009 461.9 Sinusitis Acute 07/25/2009 HELM DO CHRIS K 296.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 07/25/2009 HELM DO CHRIS K 461.9 Sinusitis Acute 07/25/2009 296.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 07/25/2009 461.9 Sinusitis Acute 07/25/2009 HELM DO, CHRIS K 296.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 07/25/2009 HELM DO CHRIS K 461.9 Sinusitis Acute 07/25/2009 TIMI SANTOS MD 296.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 07/25/2009 TIMI SANTOS MD 461.9 Sinusitis Acute 07/25/2009 CAMMY TAI LCPC 296.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 07/25/2009 CAMMY TAI LCPC 461.9 Sinusitis Acute 07/25/2009 TIMI SANTOS MD 296.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 07/25/2009 TIMI SANTOS MD 461.9 Sinusitis Acute 07/25/2009 TIMI SNATOS MD 296.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 07/25/2009 TIMI SANTOS MD 461.9 Sinusitis Acute 07/25/2009 TIMI SANTOS MD 296.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 07/25/2009 TIMI SANTOS MD 461.9 Sinusitis Acute 07/25/2009 TIMI SANTOS MD 296.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 07/25/2009 TIMI SANTOS MD 461.9 Sinusitis Acute 07/25/2009 TIMI SANTOS MD 296.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 07/25/2009 TIMI SANTOS MD 461.9 Sinusitis Acute 07/25/2009 HELM DO, CHRIS K 296.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 07/25/2009 HELM DO, CHRIS K 461.9 Sinusitis Acute 07/25/2009 ALISA PACKAGING SUPERVISOR, DOMENIC A 296.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 07/25/2009 ALISA PACKAGING SUPERVISOR, DOMENIC A 461.9 Sinusitis Acute 07/25/2009 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, CAMMY B 296.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 07/25/2009 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, CAMMY B 461.9 Sinusitis Acute 07/25/2009 HELM DO, CHRIS K 296.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 07/25/2009 HELM DO, CHRIS K 461.9 Sinusitis Acute 07/25/2009 ANA MONREAL PHD A 296.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 07/25/2009 ANA MONREAL PHD A 461.9 Sinusitis Acute 07/25/2009 ALISA PACKAGING SUPERVISOR, DOMENIC A 296.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 07/25/2009 ALISA PACKAGING SUPERVISOR, DOMENIC A 461.9 Sinusitis Acute 07/25/2009 MADL PACKAGING SUPERVISOR, JENNY L 296.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 07/25/2009 MADL PACKAGING SUPERVISOR, JENNY L 461.9 Sinusitis Acute 07/25/2009 ANA MONREAL PHD A 296.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 07/25/2009 ANA MONREAL PHD A 461.9 Sinusitis Acute 07/25/2009 ANA MONREAL PHD A 296.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 07/25/2009 ANA MONREAL PHD A 461.9 Sinusitis Acute 07/25/2009 MADL PACKAGING SUPERVISOR, JENNY L 296.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 07/25/2009 MADL PACKAGING SUPERVISOR, JENNY L 461.9 Sinusitis Acute 07/25/2009 GWEN STYLES MD 296.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 07/25/2009 GWEN STYLES MD 461.9 Sinusitis Acute 07/25/2009 ANA MONREAL PHD A 296.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 07/25/2009 ANA MONREAL PHD 461.9 Sinusitis Acute 07/25/2009 ANA MONREAL PHD A 296.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 07/25/2009 ANA MONREAL PHD A 461.9 Sinusitis Acute 07/25/2009 ANA MONREAL PHD A 296.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 07/25/2009 ANA MONREAL PHD A 461.9 Sinusitis Acute 07/25/2009 MADL PACKAGING SUPERVISOR, JENNY L 296.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 07/25/2009 MADL PACKAGING SUPERVISOR, JENNY L 461.9 Sinusitis Acute 07/25/2009 ANA MONREAL PHD A 296.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 07/25/2009 ANA MONREAL PHD 461.9 Sinusitis Acute 07/25/2009 ANA MONREAL PHD A 296.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 07/25/2009 ANA MONREAL PHD 461.9 Sinusitis Acute 07/25/2009 MADL PACKAGING SUPERVISOR, JENNY L 296.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 07/25/2009 MADL PACKAGING SUPERVISOR, JENNY L 461.9 Sinusitis Acute 07/25/2009 ANA MONREAL PHD A 296.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 07/25/2009 ANA MONREAL PHD A 461.9 Sinusitis Acute 07/25/2009 HELM DO, CHRIS K 296.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 07/25/2009 HELM DO, CHRIS K 461.9 Sinusitis Acute 07/25/2009 MADL PACKAGING SUPERVISOR, JENNY L 296.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 07/25/2009 MADL PACKAGING SUPERVISOR, JENNY L 461.9 Sinusitis Acute 07/25/2009 MADL PACKAGING SUPERVISOR, JENNY L 296.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 07/25/2009 MADL PACKAGING SUPERVISOR, JENNY L 461.9 Sinusitis Acute 07/25/2009 ANA MONREAL PHD A 296.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 07/25/2009 ANA MONREAL PHD 461.9 Sinusitis Acute 07/25/2009 RAH SIFUENTES ANA Servin 296.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 07/25/2009 RAH SIFUENTES, ANA A 461.9 Sinusitis Acute 07/25/2009 MADL PACKAGING SUPERVISOR, JENNY L 296.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 07/25/2009 MADL PACKAGING SUPERVISOR, JENNY L 461.9 Sinusitis Acute 07/25/2009 MADL PACKAGING SUPERVISOR, JENNY L 296.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 07/25/2009 MADL PACKAGING SUPERVISOR, JENNY L 461.9 Sinusitis Acute 07/25/2009 HEML DO CHRIS K 296.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 07/25/2009 HELM DO, CHRIS K 461.9 Sinusitis Acute 07/28/2009 296.30 MO DEPRESSIVE RECURRENT UNSPECIFIED 07/28/2009 300.00 anxiety 07/28/2009 307.47 SI DYSSOMNIA NOS 07/28/2009 316 PF PSYCHIC FACTORS MED COND 07/28/2009 HELM DO CHRIS K 296.30 MO DEPRESSIVE RECURRENT UNSPECIFIED 07/28/2009 HELM DO CHRIS K 300.00 anxiety 07/28/2009 HELM DO, CHRIS K 307.47 SI DYSSOMNIA NOS 07/28/2009 HELM DO, CHRIS K 316 PF PSYCHIC FACTORS MED COND 07/28/2009 296.30 MO DEPRESSIVE RECURRENT UNSPECIFIED 07/28/2009 300.00 anxiety 07/28/2009 307.47 SI DYSSOMNIA NOS 07/28/2009 316 PF PSYCHIC FACTORS MED COND 07/28/2009 HELM DO, CHRIS K 296.30 MO DEPRESSIVE RECURRENT UNSPECIFIED 07/28/2009 ALICJA CHENG CHRIS K 300.00 anxiety 07/28/2009 HELM DO, CHRIS K 307.47 SI DYSSOMNIA NOS 07/28/2009 HELM DO, CHRIS K 316 PF PSYCHIC FACTORS MED COND 07/28/2009 TIMI SANTOS MD 296.30 MO DEPRESSIVE RECURRENT UNSPECIFIED 07/28/2009 TIMI SANTOS MD 300.00 anxiety 07/28/2009 TIMI SANTOS MD 307.47 SI DYSSOMNIA NOS 07/28/2009 TIMI SANTOS MD 316 PF PSYCHIC FACTORS MED COND 07/28/2009 ZAIRECAMMY FRANCIS LCPC B 296.30 MO DEPRESSIVE RECURRENT UNSPECIFIED 07/28/2009 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, CAMMY B 300.00 anxiety 07/28/2009 ZAIREPENNY SWIFT, CMAMY B 307.47 SI DYSSOMNIA NOS 07/28/2009 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, CAMMY B 316 PF PSYCHIC FACTORS MED COND 07/28/2009 TIMI SANTOS MD 296.30 MO DEPRESSIVE RECURRENT UNSPECIFIED 07/28/2009 TIMI SANTOS MD 300.00 anxiety 07/28/2009 TIMI SANTOS MD 307.47 SI DYSSOMNIA NOS 07/28/2009 TOM TREVINO, TIMI 316 PF PSYCHIC FACTORS MED COND 07/28/2009 TOM TREVINO, TIMI 296.30 MO DEPRESSIVE RECURRENT UNSPECIFIED 07/28/2009 TIMI SANTOS MD 300.00 anxiety 07/28/2009 TOM TREVINO, TIMI 307.47 SI DYSSOMNIA NOS 07/28/2009 TOM TREVINO, TIMI 316 PF PSYCHIC FACTORS MED COND 07/28/2009 TIMI SANTOS MD 296.30 MO DEPRESSIVE RECURRENT UNSPECIFIED 07/28/2009 TIMI SANTOS MD 300.00 anxiety 07/28/2009 TIMI SANTOS MD 307.47 SI DYSSOMNIA NOS 07/28/2009 TIMI SANTOS MD 316 PF PSYCHIC FACTORS MED COND 07/28/2009 TIMI SANTOS MD 296.30 MO DEPRESSIVE RECURRENT UNSPECIFIED 07/28/2009 TIMI SANTOS MD 300.00 anxiety 07/28/2009 TIMI SANTOS MD 307.47 SI DYSSOMNIA NOS 07/28/2009 TIMI SANTOS MD 316 PF PSYCHIC FACTORS MED COND 07/28/2009 TIMI SANTOS MD 296.30 MO DEPRESSIVE RECURRENT UNSPECIFIED 07/28/2009 TIMI SANTOS MD 300.00 anxiety 07/28/2009 TIMI SANTOS MD 307.47 SI DYSSOMNIA NOS 07/28/2009 TIMI SANTOS MD 316 PF PSYCHIC FACTORS MED COND 07/28/2009 HELM DO, CHRIS K 296.30 MO DEPRESSIVE RECURRENT UNSPECIFIED 07/28/2009 HELM DO, CHRIS K 300.00 anxiety 07/28/2009 HELM DO, CHRIS K 307.47 SI DYSSOMNIA NOS 07/28/2009 HELM DO, CHRIS K 316 PF PSYCHIC FACTORS MED COND 07/28/2009 DOMENIC CUELLAR APRN 296.30 MO DEPRESSIVE RECURRENT UNSPECIFIED 07/28/2009 ALISA QUIROZN, DOMENIC A 300.00 anxiety 07/28/2009 ALISA PACKAGING SUPERVISOR, DOMENIC A 307.47 SI DYSSOMNIA NOS 07/28/2009 ALISA QUIROZN, DOMENIC A 316 PF PSYCHIC FACTORS MED COND 07/28/2009 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, CAMMY B 296.30 MO DEPRESSIVE RECURRENT UNSPECIFIED 07/28/2009 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, CAMMY B 300.00 anxiety 07/28/2009 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, CAMMY B 307.47 SI DYSSOMNIA NOS 07/28/2009 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, CAMMY B 316 PF PSYCHIC FACTORS MED COND 07/28/2009 HELM DO, CHRIS K 296.30 MO DEPRESSIVE RECURRENT UNSPECIFIED 07/28/2009 HELM DO, CHRIS K 300.00 anxiety 07/28/2009 HELM DO, CHRIS K 307.47 SI DYSSOMNIA NOS 07/28/2009 HELM DO, CHRIS K 316 PF PSYCHIC FACTORS MED COND 07/28/2009 ANA MONREAL PHD 296.30 MO DEPRESSIVE RECURRENT UNSPECIFIED 07/28/2009 ANA MONREAL PHD 300.00 anxiety 07/28/2009 ANA MONREAL PHD 307.47 SI DYSSOMNIA NOS 07/28/2009 ANA MONREAL PHD 316 PF PSYCHIC FACTORS MED COND 07/28/2009 ALISA DIEHL, DOMENIC A 296.30 MO DEPRESSIVE RECURRENT UNSPECIFIED 07/28/2009 ALISA QUIROZN, DOMENIC A 300.00 anxiety 07/28/2009 ALISA QUIROZN, DOMENIC A 307.47 SI DYSSOMNIA NOS 07/28/2009 ALISA QUIROZN, DOMENIC A 316 PF PSYCHIC FACTORS MED COND 07/28/2009 MADL PACKAGING SUPERVISOR, JENNY L 296.30 MO DEPRESSIVE RECURRENT UNSPECIFIED 07/28/2009 MADL PACKAGING SUPERVISOR, JENNY L 300.00 anxiety 07/28/2009 MADL PACKAGING SUPERVISOR, JENNY L 307.47 SI DYSSOMNIA NOS 07/28/2009 MADL PACKAGING SUPERVISOR, JENNY L 316 PF PSYCHIC FACTORS MED COND 07/28/2009 ANA MONREAL PHD 296.30 MO DEPRESSIVE RECURRENT UNSPECIFIED 07/28/2009 ANA MONREAL PHD 300.00 anxiety 07/28/2009 [facility]OUT PHD, ANA A 307.47 SI DYSSOMNIA NOS 07/28/2009 [facility] PHD, ANA A 316 PF PSYCHIC FACTORS MED COND 07/28/2009 [facility] PHD, ANA A 296.30 MO DEPRESSIVE RECURRENT UNSPECIFIED 07/28/2009 [facility] PHD, ANA A 300.00 anxiety 07/28/2009 [facility]EOUT PHD, ANA A 307.47 SI DYSSOMNIA NOS 07/28/2009 [facility] PHD, ANA A 316 PF PSYCHIC FACTORS MED COND 07/28/2009 MADL PACKAGING SUPERVISOR, JENNY L 296.30 MO DEPRESSIVE RECURRENT UNSPECIFIED 07/28/2009 MADL PACKAGING SUPERVISOR, JENNY L 300.00 anxiety 07/28/2009 MADL PACKAGING SUPERVISOR, JENNY L 307.47 SI DYSSOMNIA NOS 07/28/2009 MADL PACKAGING SUPERVISOR, JENNY L 316 PF PSYCHIC FACTORS MED COND 07/28/2009 JENSEN TREVINO, GWEN 296.30 MO DEPRESSIVE RECURRENT UNSPECIFIED 07/28/2009 JENSEN TREVINO, BASSHAHANA 300.00 anxiety 07/28/2009 JENSEN TREVINO, GWEN 307.47 SI DYSSOMNIA NOS 07/28/2009 JENSEN TREVINO, GWEN 316 PF PSYCHIC FACTORS MED COND 07/28/2009 RAH PHD, ANA A 296.30 MO DEPRESSIVE RECURRENT UNSPECIFIED 07/28/2009 BOEJOANN PHD, ANA A 300.00 anxiety 07/28/2009 BOEJOANN PHD, ANA A 307.47 SI DYSSOMNIA NOS 07/28/2009 BOEJOANN PHD, ANA A 316 PF PSYCHIC FACTORS MED COND 07/28/2009 BOEDBOUT PHD, ANA A 296.30 MO DEPRESSIVE RECURRENT UNSPECIFIED 07/28/2009 BOEJOANN PHD, ANA A 300.00 anxiety 07/28/2009 BOEJOANN PHD, ANA A 307.47 SI DYSSOMNIA NOS 07/28/2009 BOEDBOUT PHD, ANA A 316 PF PSYCHIC FACTORS MED COND 07/28/2009 BOEJOANN PHD, ANA A 296.30 MO DEPRESSIVE RECURRENT UNSPECIFIED 07/28/2009 BOEJOANN PHD, ANA A 300.00 anxiety 07/28/2009 BOEJOANN PHD, ANA A 307.47 SI DYSSOMNIA NOS 07/28/2009 RAH PHD, ANA A 316 PF PSYCHIC FACTORS MED COND 07/28/2009 MADL PACKAGING SUPERVISOR, JENNY L 296.30 MO DEPRESSIVE RECURRENT UNSPECIFIED 07/28/2009 MADL PACKAGING SUPERVISOR, JENNY L 300.00 anxiety 07/28/2009 MADL PACKAGING SUPERVISOR, JENNY L 307.47 SI DYSSOMNIA NOS 07/28/2009 MADL PACKAGING SUPERVISOR, JENNY L 316 PF PSYCHIC FACTORS MED COND 07/28/2009 RAH PHD, ANA A 296.30 MO DEPRESSIVE RECURRENT UNSPECIFIED 07/28/2009 RAH PHD, ANA A 300.00 anxiety 07/28/2009 RAH SIFUENTES, ANA Servin 307.47 SI DYSSOMNIA NOS 07/28/2009 RAH PHD, ANA A 316 PF PSYCHIC FACTORS MED COND 07/28/2009 RAH SIFUENTES, ANA A 296.30 MO DEPRESSIVE RECURRENT UNSPECIFIED 07/28/2009 RAH SIFUENTES, ANA Servin 300.00 anxiety 07/28/2009 RAH PHD, ANA Servin 307.47 SI DYSSOMNIA NOS 07/28/2009 RAH PHD, ANA A 316 PF PSYCHIC FACTORS MED COND 07/28/2009 MADL PACKAGING SUPERVISOR, JENNY L 296.30 MO DEPRESSIVE RECURRENT UNSPECIFIED 07/28/2009 MADL PACKAGING SUPERVISOR, JENNY L 300.00 anxiety 07/28/2009 MADL PACKAGING SUPERVISOR, JENNY L 307.47 SI DYSSOMNIA NOS 07/28/2009 MADL PACKAGING SUPERVISOR, JENNY L 316 PF PSYCHIC FACTORS MED COND 07/28/2009 RAH SIFUENTES, ANA A 296.30 MO DEPRESSIVE RECURRENT UNSPECIFIED 07/28/2009 RAH SIFUENTES, ANA A 300.00 anxiety 07/28/2009 RAH SIFUENTES, ANA Servin 307.47 SI DYSSOMNIA NOS 07/28/2009 ANA MONREAL PHD A 316 PF PSYCHIC FACTORS MED COND 07/28/2009 HELM DO, CHRIS K 296.30 MO DEPRESSIVE RECURRENT UNSPECIFIED 07/28/2009 HELM DO, CHRIS K 300.00 anxiety 07/28/2009 HELM DO, CHRIS K 307.47 SI DYSSOMNIA NOS 07/28/2009 CHRIS HELM DO 316 PF PSYCHIC FACTORS MED COND 07/28/2009 MADL PACKAGING SUPERVISOR, JENNY L 296.30 MO DEPRESSIVE RECURRENT UNSPECIFIED 07/28/2009 MADL PACKAGING SUPERVISOR, JENNY L 300.00 anxiety 07/28/2009 MADL PACKAGING SUPERVISOR, JENNY L 307.47 SI DYSSOMNIA NOS 07/28/2009 MADL PACKAGING SUPERVISOR, JENNY L 316 PF PSYCHIC FACTORS MED COND 07/28/2009 MADL PACKAGING SUPERVISOR, JENNY L 296.30 MO DEPRESSIVE RECURRENT UNSPECIFIED 07/28/2009 MADL PACKAGING SUPERVISOR, JENNY L 300.00 anxiety 07/28/2009 MADL PACKAGING SUPERVISOR, JENNY L 307.47 SI DYSSOMNIA NOS 07/28/2009 MADL PACKAGING SUPERVISOR, JENNY L 316 PF PSYCHIC FACTORS MED COND 07/28/2009 RAH PHD, ANA A 296.30 MO DEPRESSIVE RECURRENT UNSPECIFIED 07/28/2009 RAH PHD, ANA A 300.00 anxiety 07/28/2009 RAH PHD, ANA A 307.47 SI DYSSOMNIA NOS 07/28/2009 RAH PHD, ANA A 316 PF PSYCHIC FACTORS MED COND 07/28/2009 RAH PHD, ANA A 296.30 MO DEPRESSIVE RECURRENT UNSPECIFIED 07/28/2009 RAH PHD, ANA A 300.00 anxiety 07/28/2009 RAH PHD, ANA A 307.47 SI DYSSOMNIA NOS 07/28/2009 RAH PHD, ANA A 316 PF PSYCHIC FACTORS MED COND 07/28/2009 MADL PACKAGING SUPERVISOR, JENNY L 296.30 MO DEPRESSIVE RECURRENT UNSPECIFIED 07/28/2009 MADL PACKAGING SUPERVISOR, JENNY L 300.00 anxiety 07/28/2009 MADL PACKAGING SUPERVISOR, JENNY L 307.47 SI DYSSOMNIA NOS 07/28/2009 MADL PACKAGING SUPERVISOR, JENNY L 316 PF PSYCHIC FACTORS MED COND 07/28/2009 MADL PACKAGING SUPERVISOR, JENNY L 296.30 MO DEPRESSIVE RECURRENT UNSPECIFIED 07/28/2009 MADL PACKAGING SUPERVISOR, JENNY L 300.00 anxiety 07/28/2009 MADL PACKAGING SUPERVISOR, JENNY L 307.47 SI DYSSOMNIA NOS 07/28/2009 MADL PACKAGING SUPERVISOR, JENNY L 316 PF PSYCHIC FACTORS MED COND 07/28/2009 HELM CHRIS HCENG K 296.30 MO DEPRESSIVE RECURRENT UNSPECIFIED 07/28/2009 HELM CHRIS CHENG K 300.00 anxiety 07/28/2009 ALICJA CHENGMYNORA K 307.47 SI DYSSOMNIA NOS 07/28/2009 ALICJA CHENG CHRIS K 316 PF PSYCHIC FACTORS MED COND 08/31/2009 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 08/31/2009 300.01 AN PANIC DIS W/O AGORA 08/31/2009 HELM MYNOR CHENGA K 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 08/31/2009 HELM MYNOR CHENGA K 300.01 AN PANIC DIS W/O AGORA 08/31/2009 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 08/31/2009 300.01 AN PANIC DIS W/O AGORA 08/31/2009 CHRIS HELM DO K 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 08/31/2009 CHRIS HELM DO K 300.01 AN PANIC DIS W/O AGORA 08/31/2009 TIMI SANTOS MD 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 08/31/2009 TIMI SANTOS MD 300.01 AN PANIC DIS W/O AGORA 08/31/2009 CAMMY TAI LCPC 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 08/31/2009 CAMMY TAI LCPC B 300.01 AN PANIC DIS W/O AGORA 08/31/2009 TIMI SANTOS MD 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 08/31/2009 TIMI SANTOS MD 300.01 AN PANIC DIS W/O AGORA 08/31/2009 TIMI SANTOS MD 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 08/31/2009 TIMI SANTOS MD 300.01 AN PANIC DIS W/O AGORA 08/31/2009 TIMI SANTOS MD 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 08/31/2009 TIMI SANTOS MD 300.01 AN PANIC DIS W/O AGORA 08/31/2009 TIMI SANTOS MD 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 08/31/2009 TIMI SANTOS MD 300.01 AN PANIC DIS W/O AGORA 08/31/2009 TIMI SANTOS MD 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 08/31/2009 TIMI SANTOS MD 300.01 AN PANIC DIS W/O AGORA 08/31/2009 CHRIS HELM DO K 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 08/31/2009 CHRIS HELM DO K 300.01 AN PANIC DIS W/O AGORA 08/31/2009 ALISA DIEHL DOMENIC A 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 08/31/2009 ALISALYNN QUIROZN, DOMENIC A 300.01 AN PANIC DIS W/O AGORA 08/31/2009 CAMMY TAI LCPC 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 08/31/2009 CAMMY TAI LCPC B 300.01 AN PANIC DIS W/O AGORA 08/31/2009 CHRIS HELM DO K 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 08/31/2009 CHRIS HELM DO K 300.01 AN PANIC DIS W/O AGORA 08/31/2009 ANA MONREAL PHD 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 08/31/2009 ANA MONREAL PHD 300.01 AN PANIC DIS W/O AGORA 08/31/2009 ALISA DIEHL, DOMENIC A 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 08/31/2009 ALISA DIEHL, DOMENIC A 300.01 AN PANIC DIS W/O AGORA 08/31/2009 MADBrown PACKAGING SUPERVISOR, JENNY L 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 08/31/2009 MADBrown PACKAGING SUPERVISOR, JENNY L 300.01 AN PANIC DIS W/O AGORA 08/31/2009 ANA MONREAL PHD 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 08/31/2009 ANA MONREAL PHD 300.01 AN PANIC DIS W/O AGORA 08/31/2009 ANA MONREAL PHD 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 08/31/2009 BOEKHOUT PHD, ANA A 300.01 AN PANIC DIS W/O AGORA 08/31/2009 MADL PACKAGING SUPERVISOR, JENNY L 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 08/31/2009 MADL PACKAGING SUPERVISOR, JENNY L 300.01 AN PANIC DIS W/O AGORA 08/31/2009 JENSEN TREVINO, GWNE 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 08/31/2009 JENSEN TREVINO, GWEN 300.01 AN PANIC DIS W/O AGORA 08/31/2009 RAH SIFUENTES, ANA A 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 08/31/2009 RAH PHD, ANA A 300.01 AN PANIC DIS W/O AGORA 08/31/2009 RAH SIFUENTES, ANA A 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 08/31/2009 RAH SIFUENTES, ANA A 300.01 AN PANIC DIS W/O AGORA 08/31/2009 RAH SIFUENTES, ANA A 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 08/31/2009 RAH SIFUENTES, ANA A 300.01 AN PANIC DIS W/O AGORA 08/31/2009 MADL PACKAGING SUPERVISOR, JENNY L 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 08/31/2009 MADL PACKAGING SUPERVISOR, JENNY L 300.01 AN PANIC DIS W/O AGORA 08/31/2009 RAH SIFUENTES, ANA A 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 08/31/2009 RAH SIFUENTES, ANA A 300.01 AN PANIC DIS W/O AGORA 08/31/2009 RAH SIFUENTES, AAN A 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 08/31/2009 RAH SIFUENTES, ANA A 300.01 AN PANIC DIS W/O AGORA 08/31/2009 MADL PACKAGING SUPERVISOR, JENNY L 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 08/31/2009 MAD PACKAGING SUPERVISOR, JENNY L 300.01 AN PANIC DIS W/O AGORA 08/31/2009 ANA MONREAL PHD A 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 08/31/2009 RAH SIFEUNTES, ANA A 300.01 AN PANIC DIS W/O AGORA 08/31/2009 CHRIS HELM DO K 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 08/31/2009 CHRIS HELM DO 300.01 AN PANIC DIS W/O AGORA 08/31/2009 MADL PACKAGING SUPERVISOR, JENNY L 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 08/31/2009 MADL PACKAGING SUPERVISOR, JENNY L 300.01 AN PANIC DIS W/O AGORA 08/31/2009 MADL PACKAGING SUPERVISOR, JENNY L 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 08/31/2009 MADL PACKAGING SUPERVISOR, JENNY L 300.01 AN PANIC DIS W/O AGORA 08/31/2009 RAH SIFUENTES, ANA A 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 08/31/2009 RAH PHD, ANA A 300.01 AN PANIC DIS W/O AGORA 08/31/2009 RAH PHD, ANA A 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 08/31/2009 RAH PHD, ANA A 300.01 AN PANIC DIS W/O AGORA 08/31/2009 MADL PACKAGING SUPERVISOR, JENNY L 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 08/31/2009 MADL PACKAGING SUPERVISOR, JENNY L 300.01 AN PANIC DIS W/O AGORA 08/31/2009 MADL PACKAGING SUPERVISOR, JENNY L 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 08/31/2009 MAD PACKAGING SUPERVISOR, JENNY L 300.01 AN PANIC DIS W/O AGORA 08/31/2009 CHRIS HELM DO K 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 08/31/2009 CHRIS HELM DO 300.01 AN PANIC DIS W/O AGORA 11/21/2009 V58.69 taking high- risk medication 11/21/2009 CHRIS HELM DO V58.69 taking high-risk medication 11/21/2009 V58.69 taking high- risk medication 11/21/2009 CHRIS HELM DO V58.69 taking high-risk medication 11/21/2009 TIMI SANTOS MD V58.69 TAKING HIGH-RISK MEDICATION 11/21/2009 CAMMY TAI LCPC V58.69 TAKING HIGH-RISK MEDICATION 11/21/2009 TIMI SANTOS MD V58.69 TAKING HIGH-RISK MEDICATION 11/21/2009 TIMI SANTOS MD V58.69 TAKING HIGH-RISK MEDICATION 11/21/2009 TIMI SANTOS MD V58.69 TAKING HIGH-RISK MEDICATION 11/21/2009 TIMI SANTOS MD V58.69 TAKING HIGH-RISK MEDICATION 11/21/2009 TIMI SANTOS MD V58.69 TAKING HIGH-RISK MEDICATION 11/21/2009 HELM DOCHRIS K V58.69 TAKING HIGH-RISK MEDICATION 11/21/2009 DOMENIC CUELLAR APRN A V58.69 TAKING HIGH-RISK MEDICATION 11/21/2009 CAMMY TAI LCPC V58.69 TAKING HIGH-RISK MEDICATION 11/21/2009 CHRIS HELM DO V58.69 TAKING HIGH-RISK MEDICATION 11/21/2009 RAH SIFUENTES, ANA Servin V58.69 TAKING HIGH-RISK MEDICATION 11/21/2009 DOMENIC CUELLAR APRN A V58.69 TAKING HIGH-RISK MEDICATION 11/21/2009 JENNY WOLF APRN V58.69 TAKING HIGH-RISK MEDICATION 11/21/2009 RAH SIFUENTES, ANA Servin V58.69 TAKING HIGH-RISK MEDICATION 11/21/2009 RAH SIFUENTES, ANA Servin V58.69 TAKING HIGH-RISK MEDICATION 11/21/2009 JENNY WOLF APRN V58.69 TAKING HIGH-RISK MEDICATION 11/21/2009 GWEN STYLES MD V58.69 TAKING HIGH-RISK MEDICATION 11/21/2009 RAH SIFUENTES, ANA Servin V58.69 TAKING HIGH-RISK MEDICATION 11/21/2009 RAH SIFUENTES, ANA A V58.69 TAKING HIGH-RISK MEDICATION 11/21/2009 RAH SIFUENTES, ANA A V58.69 TAKING HIGH-RISK MEDICATION 11/21/2009 JENNY WOLF APRN V58.69 TAKING HIGH-RISK MEDICATION 11/21/2009 RAH SIFUENTES, ANA A V58.69 TAKING HIGH-RISK MEDICATION 11/21/2009 RAH SIFUENTES, ANA Servin V58.69 TAKING HIGH-RISK MEDICATION 11/21/2009 LUCIANO PACKAGING SUPERVISOR, JENNY L V58.69 TAKING HIGH-RISK MEDICATION 11/21/2009 RAH PHD, ANA Servin V58.69 TAKING HIGH-RISK MEDICATION 11/21/2009 CHRIS HELM DO K V58.69 TAKING HIGH-RISK MEDICATION 11/21/2009 LUCIANO PACKAGING SUPERVISOR, JENNY L V58.69 TAKING HIGH-RISK MEDICATION 11/21/2009 LUCIANO PACKAGING SUPERVISOR, JENNY L V58.69 TAKING HIGH-RISK MEDICATION 11/21/2009 RAH PHD, ANA A V58.69 TAKING HIGH-RISK MEDICATION 11/21/2009 RAH PHD, ANA Servin V58.69 TAKING HIGH-RISK MEDICATION 11/21/2009 LUCIANO PACKAGING SUPERVISOR, JENNY L V58.69 TAKING HIGH-RISK MEDICATION 11/21/2009 MARICRUZ WOLF APRNA L V58.69 TAKING HIGH-RISK MEDICATION 11/21/2009 MYNOR HELM DOA K V58.69 TAKING HIGH-RISK MEDICATION 01/05/2010 787.91 diarrhea 01/05/2010 CHRIS HELM DO K 787.91 diarrhea 01/05/2010 787.91 diarrhea 01/05/2010 MYNOR HELM DOA K 787.91 diarrhea 01/05/2010 TOM TREVINO, TIMI 787.91 diarrhea 01/05/2010 CAMMY TAI LCPC 787.91 diarrhea 01/05/2010 TOM TREVINO, TIMI 787.91 diarrhea 01/05/2010 TOM TREVINO, TIMI 787.91 diarrhea 01/05/2010 TOM TREVINO, TIMI 787.91 diarrhea 01/05/2010 TOM TREVINO, TIMI 787.91 diarrhea 01/05/2010 TOM TREVINO, TIMI 787.91 diarrhea 01/05/2010 MYNOR HELM DOA K 787.91 diarrhea 01/05/2010 DOMENIC CUELLAR APRN A 787.91 diarrhea 01/05/2010 CAMMY TAI LCPC 787.91 diarrhea 01/05/2010 CHRIS HELM DO K 787.91 diarrhea 01/05/2010 RAH SIFUENTES, ANA Servin 787.91 diarrhea 01/05/2010 DOMENIC CUELLAR APRN A 787.91 diarrhea 01/05/2010 MADL PACKAGING SUPERVISOR, JENNY L 787.91 diarrhea 01/05/2010 [facility] A 787.91 diarrhea 01/05/2010 [facility] ANA A 787.91 diarrhea 01/05/2010 MADL PACKAGING SUPERVISOR, JENNY L 787.91 diarrhea 01/05/2010 JENSEN TREVINO, GWEN 787.91 diarrhea 01/05/2010 [facility] PHD, ANA A 787.91 diarrhea 01/05/2010 [facility] PHD, ANA A 787.91 diarrhea 01/05/2010 [facility] PHD, ANA A 787.91 diarrhea 01/05/2010 MADL PACKAGING SUPERVISOR, JENNY L 787.91 diarrhea 01/05/2010 [facility] A[facility] A 787.91 diarrhea 01/05/2010 [facility] PHD, ANA A 787.91 diarrhea 01/05/2010 MADL PACKAGING SUPERVISOR, JENNY L 787.91 diarrhea 01/05/2010 RAH PHD, ANA A 787.91 diarrhea 01/05/2010 HELM DO, CHRIS K 787.91 diarrhea 01/05/2010 MADL PACKAGING SUPERVISOR, JENNY L 787.91 diarrhea 01/05/2010 MADL PACKAGING SUPERVISOR, JENNY L 787.91 diarrhea 01/05/2010 [facility] ANA A 787.91 diarrhea 01/05/2010 [facility] PHD, ANA A 787.91 diarrhea 01/05/2010 MADL PACKAGING SUPERVISOR, JENNY L 787.91 diarrhea 01/05/2010 MADL PACKAGING SUPERVISOR, JENNY L 787.91 diarrhea 01/05/2010 HELM DO, CHRIS K 787.91 diarrhea 01/17/2010 564.1 IRRITABLE BOWEL SYNDROME 01/17/2010 789.00 abdominal pain 01/17/2010 HELM DO, CHRIS K 564.1 IRRITABLE BOWEL SYNDROME 01/17/2010 HELM DO, CHRIS K 789.00 abdominal pain 01/17/2010 564.1 IRRITABLE BOWEL SYNDROME 01/17/2010 789.00 abdominal pain 01/17/2010 HELM DO, CHRIS K 564.1 IRRITABLE BOWEL SYNDROME 01/17/2010 HELM DO, CHRIS K 789.00 abdominal pain 01/17/2010 TOM TREVINO, TIMI 564.1 IRRITABLE BOWEL SYNDROME 01/17/2010 TOM TREVINO, TIMI 789.00 abdominal pain 01/17/2010 CAMMY TAI LCPC 564.1 IRRITABLE BOWEL SYNDROME 01/17/2010 CAMMY TAI LCPC 789.00 abdominal pain 01/17/2010 TOM TREVINO, TIMI Vigil4.1 IRRITABLE BOWEL SYNDROME 01/17/2010 TOM TREVINO, TIMI 789.00 abdominal pain 01/17/2010 TOM TREVINO, TIMI Vigil4.1 IRRITABLE BOWEL SYNDROME 01/17/2010 TOM TREVINO, TIMI 789.00 abdominal pain 01/17/2010 TOM TREVINO, TIMI Vigil4.1 IRRITABLE BOWEL SYNDROME 01/17/2010 TOM TREVINO, TIMI 789.00 abdominal pain 01/17/2010 TOM TREVINO, TIMI Vigil4.1 IRRITABLE BOWEL SYNDROME 01/17/2010 TOM TREVINO, TIMI 789.00 abdominal pain 01/17/2010 TOM TREVINO, TIMI Vigil4.1 IRRITABLE BOWEL SYNDROME 01/17/2010 TOM TREVINO, TIMI 789.00 abdominal pain 01/17/2010 HELM DO, CHRIS K 564.1 IRRITABLE BOWEL SYNDROME 01/17/2010 HELM DO, CHRIS K 789.00 abdominal pain 01/17/2010 DOMENIC CUELLAR APRN A 564.1 IRRITABLE BOWEL SYNDROME 01/17/2010 SUSHIL CUELLAR APRNIDI A 789.00 abdominal pain 01/17/2010 CAMMY TAI LCPC 564.1 IRRITABLE BOWEL SYNDROME 01/17/2010 CAMMY TAI LCPC B 789.00 abdominal pain 01/17/2010 HELM DO, CHRIS K 564.1 IRRITABLE BOWEL SYNDROME 01/17/2010 HELM DO, CHRIS K 789.00 abdominal pain 01/17/2010 RAH SIFUENTES, ANA Servin 564.1 IRRITABLE BOWEL SYNDROME 01/17/2010 ANA MONREAL PHD 789.00 abdominal pain 01/17/2010 DOMENIC CUELLAR APRN A 564.1 IRRITABLE BOWEL SYNDROME 01/17/2010 SUSHIL CUELLAR APRNIDI A 789.00 abdominal pain 01/17/2010 MADL PACKAGING SUPERVISOR, JENNY L 564.1 IRRITABLE BOWEL SYNDROME 01/17/2010 MADL PACKAGING SUPERVISOR, JENNY L 789.00 abdominal pain 01/17/2010 BOEOUT PHD, ANA A 564.1 IRRITABLE BOWEL SYNDROME 01/17/2010 BOEKHOUT PHD, ANA A 789.00 abdominal pain 01/17/2010 BOEOUT PHD, ANA A 564.1 IRRITABLE BOWEL SYNDROME 01/17/2010 BOEOUT PHD, ANA A 789.00 abdominal pain 01/17/2010 MADL PACKAGING SUPERVISOR, JENNY L 564.1 IRRITABLE BOWEL SYNDROME 01/17/2010 MADL PACKAGING SUPERVISOR, JENNY L 789.00 abdominal pain 01/17/2010 JENSEN TREVINO, GWEN 564.1 IRRITABLE BOWEL SYNDROME 01/17/2010 JENSEN TREVINO, GWEN 789.00 abdominal pain 01/17/2010 BOEOUT PHD, ANA A 564.1 IRRITABLE BOWEL SYNDROME 01/17/2010 BOEOUT PHD, ANA A 789.00 abdominal pain 01/17/2010 BOEOUT PHD, ANA A 564.1 IRRITABLE BOWEL SYNDROME 01/17/2010 BOEOUT PHD, ANA A 789.00 abdominal pain 01/17/2010 BOEOUT PHD, ANA A 564.1 IRRITABLE BOWEL SYNDROME 01/17/2010 BOEOUT PHD, ANA A 789.00 abdominal pain 01/17/2010 MADL PACKAGING SUPERVISOR, JENNY L 564.1 IRRITABLE BOWEL SYNDROME 01/17/2010 MADL PACKAGING SUPERVISOR, JENNY L 789.00 abdominal pain 01/17/2010 BOEOUT PHD, ANA A 564.1 IRRITABLE BOWEL SYNDROME 01/17/2010 BOEOUT PHD, ANA A 789.00 abdominal pain 01/17/2010 BOEOUT PHD, NAA A 564.1 IRRITABLE BOWEL SYNDROME 01/17/2010 BOEOUT PHD, ANA A 789.00 abdominal pain 01/17/2010 MADL PACKAGING SUPERVISOR, JENNY L 564.1 IRRITABLE BOWEL SYNDROME 01/17/2010 MADL PACKAGING SUPERVISOR, JENNY L 789.00 abdominal pain 01/17/2010 BOEKHOUT PHD, ANA A 564.1 IRRITABLE BOWEL SYNDROME 01/17/2010 RAH PHD, ANA A 789.00 abdominal pain 01/17/2010 HELM DO, CHRIS K 564.1 IRRITABLE BOWEL SYNDROME 01/17/2010 HELM DO, CHRIS K 789.00 abdominal pain 01/17/2010 MADL PACKAGING SUPERVISOR, JENNY L 564.1 IRRITABLE BOWEL SYNDROME 01/17/2010 MADL PACKAGING SUPERVISOR, JENNY L 789.00 abdominal pain 01/17/2010 MADL PACKAGING SUPERVISOR, JENNY L 564.1 IRRITABLE BOWEL SYNDROME 01/17/2010 MADL PACKAGING SUPERVISOR, JENNY L 789.00 abdominal pain 01/17/2010 RAH PHD, ANA A 564.1 IRRITABLE BOWEL SYNDROME 01/17/2010 RAH PHD, ANA A 789.00 abdominal pain 01/17/2010 RAH PHD, ANA A 564.1 IRRITABLE BOWEL SYNDROME 01/17/2010 [facility] A[facility] A 789.00 abdominal pain 01/17/2010 MADL PACKAGING SUPERVISOR, JENNY L 564.1 IRRITABLE BOWEL SYNDROME 01/17/2010 MADL PACKAGING SUPERVISOR, JENNY L 789.00 abdominal pain 01/17/2010 MADL PACKAGING SUPERVISOR, JENNY L 564.1 IRRITABLE BOWEL SYNDROME 01/17/2010 MADL PACKAGING SUPERVISOR, JENNY L 789.00 abdominal pain 01/17/2010 HELM DO, CHRIS K 564.1 IRRITABLE BOWEL SYNDROME 01/17/2010 HELM DO, CHRIS K 789.00 abdominal pain 05/02/2010 307.40 INSOMNIA 05/02/2010 HELM DO, CHRIS K 307.40 INSOMNIA 05/02/2010 307.40 INSOMNIA 05/02/2010 HELM DO, CHRIS K 307.40 INSOMNIA 05/02/2010 TOM TREVINO, TIMI 307.40 INSOMNIA 05/02/2010 CAMMY TAI LCPC 307.40 INSOMNIA 05/02/2010 TOM TREVINO, TIMI 307.40 INSOMNIA 05/02/2010 TOM TREVINO, TIMI 307.40 INSOMNIA 05/02/2010 TOM TREVINO, TIMI 307.40 INSOMNIA 05/02/2010 TOM TREVINO, TIMI 307.40 INSOMNIA 05/02/2010 TOM TREVINO, TIMI 307.40 INSOMNIA 05/02/2010 HELM DO, CHRIS K 307.40 INSOMNIA 05/02/2010 ALISA PACKAGING SUPERVISOR, DOMENIC A 307.40 INSOMNIA 05/02/2010 CAMMY TAI LCPC 307.40 INSOMNIA 05/02/2010 HELM DO, CHRIS K 307.40 INSOMNIA 05/02/2010 RAH PHD, ANA Servin 307.40 INSOMNIA 05/02/2010 ALISA PACKAGING SUPERVISOR, DOMENIC A 307.40 INSOMNIA 05/02/2010 MADL PACKAGING SUPERVISOR, JENNY L 307.40 INSOMNIA 05/02/2010 RAH PHD, ANA Servin 307.40 INSOMNIA 05/02/2010 RAH PHD, ANA Servin 307.40 INSOMNIA 05/02/2010 MADL PACKAGING SUPERVISOR, JENNY L 307.40 INSOMNIA 05/02/2010 JENSEN TREVINO, GWEN 307.40 INSOMNIA 05/02/2010 RAH PHD, ANA Servin 307.40 INSOMNIA 05/02/2010 RAH PHD, ANA A 307.40 INSOMNIA 05/02/2010 RAH PHD, ANA A 307.40 INSOMNIA 05/02/2010 MADL PACKAGING SUPERVISOR, JENNY L 307.40 INSOMNIA 05/02/2010 RAH PHD, ANA A 307.40 INSOMNIA 05/02/2010 RAH PHD, ANA A 307.40 INSOMNIA 05/02/2010 MADL PACKAGING SUPERVISOR, JENNY L 307.40 INSOMNIA 05/02/2010 RAH PHD, ANA Servin 307.40 INSOMNIA 05/02/2010 HELM DO, CHRIS K 307.40 INSOMNIA 05/02/2010 MADL PACKAGING SUPERVISOR, JENNY L 307.40 INSOMNIA 05/02/2010 MADL PACKAGING SUPERVISOR, JENNY L 307.40 INSOMNIA 05/02/2010 RAH PHD, ANA Servin 307.40 INSOMNIA 05/02/2010 RAH PHD, ANA Servin 307.40 INSOMNIA 05/02/2010 MADL PACKAGING SUPERVISOR, JENNY L 307.40 INSOMNIA 05/02/2010 MADL PACKAGING SUPERVISOR, JENNY L 307.40 INSOMNIA 05/02/2010 HELM DO, CHRIS K 307.40 INSOMNIA 06/28/2010 Ot 346.90 06/28/2010 Ot 473.9 06/28/2010 Ot 784.0 07/10/2010 706.1 OTHER ACNE 07/10/2010 HELM CHRIS CHENG K 706.1 OTHER ACNE 07/10/2010 706.1 OTHER ACNE 07/10/2010 CHRIS HELM DO K 706.1 OTHER ACNE 07/10/2010 TIMI SANTOS MD 706.1 OTHER ACNE 07/10/2010 CAMMY TAI LCPC 706.1 OTHER ACNE 07/10/2010 TOM TREVINO, TIMI 706.1 OTHER ACNE 07/10/2010 TOM TREVINO, TIMI 706.1 OTHER ACNE 07/10/2010 TOM TREVINO, TIMI 706.1 OTHER ACNE 07/10/2010 TOM TREVINO, TIMI 706.1 OTHER ACNE 07/10/2010 TOM TREVINO, TIMI 706.1 OTHER ACNE 07/10/2010 CHRIS HELM DO K 706.1 OTHER ACNE 07/10/2010 ALISA DOMENIC DIEHL A 706.1 OTHER ACNE 07/10/2010 CAMMY TAI LCPC B 706.1 OTHER ACNE 07/10/2010 CHRIS HELM DO K 706.1 OTHER ACNE 07/10/2010 RAH PHD, ANA A 706.1 OTHER ACNE 07/10/2010 ALISA PACKAGING SUPERVISOR, DOMENIC A 706.1 OTHER ACNE 07/10/2010 MADL PACKAGING SUPERVISOR, JENNY L 706.1 OTHER ACNE 07/10/2010 RAH PHD, ANA A 706.1 OTHER ACNE 07/10/2010 RAH PHD, ANA A 706.1 OTHER ACNE 07/10/2010 MADL PACKAGING SUPERVISOR, JENNY L 706.1 OTHER ACNE 07/10/2010 GWEN STYLES MD 706.1 OTHER ACNE 07/10/2010 RAH PHD, ANA A 706.1 OTHER ACNE 07/10/2010 BETHANYOUT PHD, ANA A 706.1 OTHER ACNE 07/10/2010 RAH PHD, ANA A 706.1 OTHER ACNE 07/10/2010 MADL PACKAGING SUPERVISOR, JENNY L 706.1 OTHER ACNE 07/10/2010 RAH PHD, ANA A 706.1 OTHER ACNE 07/10/2010 RAH PHD, ANA A 706.1 OTHER ACNE 07/10/2010 MADL PACKAGING SUPERVISOR, JENNY L 706.1 OTHER ACNE 07/10/2010 RAH PHD, ANA A 706.1 OTHER ACNE 07/10/2010 HELM DO, CHRIS K 706.1 OTHER ACNE 07/10/2010 MADL PACKAGING SUPERVISOR, JENNY L 706.1 OTHER ACNE 07/10/2010 MADL PACKAGING SUPERVISOR, JENNY L 706.1 OTHER ACNE 07/10/2010 RAH PHD, ANA A 706.1 OTHER ACNE 07/10/2010 RAH PHD, ANA A 706.1 OTHER ACNE 07/10/2010 MADL PACKAGING SUPERVISOR, JENNY L 706.1 OTHER ACNE 07/10/2010 MADL PACKAGING SUPERVISOR, JENNY L 706.1 OTHER ACNE 07/10/2010 HELM DO, CHRIS K 706.1 OTHER ACNE 07/11/2010 239.2 Skin Neoplam 07/11/2010 701.9 Skin Tag 07/11/2010 HELM DO, CHRIS K 239.2 Skin Neoplam 07/11/2010 EHLM DO, CHRIS K 701.9 Skin Tag 07/11/2010 239.2 Skin Neoplam 07/11/2010 701.9 Skin Tag 07/11/2010 HELM DO, CHRIS K 239.2 Skin Neoplam 07/11/2010 HELM DO, CHRIS K 701.9 Skin Tag 07/11/2010 TIMI SANTOS MD 239.2 Skin Neoplam 07/11/2010 TIMI SANTOS MD 701.9 Skin Tag 07/11/2010 [facility] [facility]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, CAMMY B 239.2 Skin Neoplam 07/11/2010 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, CAMMY B 701.9 Skin Tag 07/11/2010 TIMI SANTOS MD 239.2 Skin Neoplam 07/11/2010 TIMI SANTOS MD 701.9 Skin Tag 07/11/2010 TIMI SANTOS MD 239.2 Skin Neoplam 07/11/2010 TIMI SANTOS MD 701.9 Skin Tag 07/11/2010 TIMI SANTOS MD 239.2 Skin Neoplam 07/11/2010 TIMI SANTOS MD 701.9 Skin Tag 07/11/2010 TOM TREVINO, TIMI 239.2 Skin Neoplam 07/11/2010 TOM TREVINO, TIMI 701.9 Skin Tag 07/11/2010 TOM TREVINO, TIMI 239.2 Skin Neoplam 07/11/2010 TOM TREVINO, TIMI 701.9 Skin Tag 07/11/2010 HELM DO, CHRIS K 239.2 Skin Neoplam 07/11/2010 HELM DO, CHRIS K 701.9 Skin Tag 07/11/2010 ALISA PACKAGING SUPERVISOR, DOMENIC A 239.2 Skin Neoplam 07/11/2010 ALISA PACKAGING SUPERVISOR, DOMENIC A 701.9 Skin Tag 07/11/2010 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, CAMMY B 239.2 Skin Neoplam 07/11/2010 [employer]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, 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 701.9 Skin Tag 07/11/2010 HELM DO, CHRIS K 239.2 Skin Neoplam 07/11/2010 HELM DO, CHRIS K 701.9 Skin Tag 07/11/2010 RAH PHD, ANA A 239.2 Skin Neoplam 07/11/2010 RAH PHD, ANA A 701.9 Skin Tag 07/11/2010 ALISA PACKAGING SUPERVISOR, DOMENIC A 239.2 Skin Neoplam 07/11/2010 ALISA PACKAGING SUPERVISOR, DOMENIC A 701.9 Skin Tag 07/11/2010 MADL PACKAGING SUPERVISOR, JENNY L 239.2 Skin Neoplam 07/11/2010 MADL PACKAGING SUPERVISOR, JENNY L 701.9 Skin Tag 07/11/2010 RAH PHD, ANA A 239.2 Skin Neoplam 07/11/2010 RAH PHD, ANA A 701.9 Skin Tag 07/11/2010 RAH PHD, ANA A 239.2 Skin Neoplam 07/11/2010 RAH PHD, ANA A 701.9 Skin Tag 07/11/2010 MADL PACKAGING SUPERVISOR, JENNY L 239.2 Skin Neoplam 07/11/2010 MADL PACKAGING SUPERVISOR, JENNY L 701.9 Skin Tag 07/11/2010 JENSEN TREVINO, GWEN 239.2 Skin Neoplam 07/11/2010 JENSEN TREVINO, GWEN 701.9 Skin Tag 07/11/2010 RAH PHD, ANA A 239.2 Skin Neoplam 07/11/2010 RAH PHD, ANA A 701.9 Skin Tag 07/11/2010 RAH PHD, ANA A 239.2 Skin Neoplam 07/11/2010 BOEJOANN PHD, ANA A 701.9 Skin Tag 07/11/2010 BOEJOANN PHD, ANA A 239.2 Skin Neoplam 07/11/2010 BOEJOANN PHD, ANA A 701.9 Skin Tag 07/11/2010 MADL PACKAGING SUPERVISOR, JENNY L 239.2 Skin Neoplam 07/11/2010 MADL PACKAGING SUPERVISOR, JENNY L 701.9 Skin Tag 07/11/2010 RAH PHD, ANA A 239.2 Skin Neoplam 07/11/2010 RAH PHD, ANA A 701.9 Skin Tag 07/11/2010 RAH PHD, ANA A 239.2 Skin Neoplam 07/11/2010 RAH PHD, ANA A 701.9 Skin Tag 07/11/2010 MADL PACKAGING SUPERVISOR, JENNY L 239.2 Skin Neoplam 07/11/2010 MADL PACKAGING SUPERVISOR, JENNY L 701.9 Skin Tag 07/11/2010 RAH PHD, ANA A 239.2 Skin Neoplam 07/11/2010 RAH PHD, ANA A 701.9 Skin Tag 07/11/2010 HELM DO, CHRIS K 239.2 Skin Neoplam 07/11/2010 HELM DO, CHRIS K 701.9 Skin Tag 07/11/2010 MADL PACKAGING SUPERVISOR, JENNY L 239.2 Skin Neoplam 07/11/2010 MADL PACKAGING SUPERVISOR, JENNY L 701.9 Skin Tag 07/11/2010 MADL PACKAGING SUPERVISOR, JENNY L 239.2 Skin Neoplam 07/11/2010 MADL PACKAGING SUPERVISOR, JENNY L 701.9 Skin Tag 07/11/2010 RAH PHD, ANA A 239.2 Skin Neoplam 07/11/2010 RAH PHD, ANA A 701.9 Skin Tag 07/11/2010 RAH PHD, ANA A 239.2 Skin Neoplam 07/11/2010 RAH PHD, ANA Servin 701.9 Skin Tag 07/11/2010 MADL PACKAGING SUPERVISOR, JENNY L 239.2 Skin Neoplam 07/11/2010 MADL PACKAGING SUPERVISOR, JENNY L 701.9 Skin Tag 07/11/2010 MADL PACKAGING SUPERVISOR, JENNY L 239.2 Skin Neoplam 07/11/2010 MADL PACKAGING SUPERVISOR, JENNY L 701.9 Skin Tag 07/11/2010 HELM DO, CHRIS K 239.2 Skin Neoplam 07/11/2010 HELM DO, CHRIS K 701.9 Skin Tag 08/08/2010 338.4 CHRONIC PAIN SYNDROME 08/08/2010 HELM DO, CHRIS K 338.4 CHRONIC PAIN SYNDROME 08/08/2010 338.4 CHRONIC PAIN SYNDROME 08/08/2010 HELM DO, CHRIS K 338.4 CHRONIC PAIN SYNDROME 08/08/2010 TIMI SANTOS MD 338.4 CHRONIC PAIN SYNDROME 08/08/2010 CAMMY TAI LCPC 338.4 CHRONIC PAIN SYNDROME 08/08/2010 TIMI SANTOS MD 338.4 CHRONIC PAIN SYNDROME 08/08/2010 TIMI SANTOS MD 338.4 CHRONIC PAIN SYNDROME 08/08/2010 TIMI SANTOS MD 338.4 CHRONIC PAIN SYNDROME 08/08/2010 TIMI SANTOS MD 338.4 CHRONIC PAIN SYNDROME 08/08/2010 TIMI SANTOS MD 338.4 CHRONIC PAIN SYNDROME 08/08/2010 HELM DO, CHRIS K 338.4 CHRONIC PAIN SYNDROME 08/08/2010 DOMENIC CUELLAR APRN A 338.4 CHRONIC PAIN SYNDROME 08/08/2010 CAMMY TAI LCPC 338.4 CHRONIC PAIN SYNDROME 08/08/2010 HELM DO, CHRIS K 338.4 CHRONIC PAIN SYNDROME 08/08/2010 RAH SIFUENTES, ANA Servin 338.4 CHRONIC PAIN SYNDROME 08/08/2010 DOMENIC CUELLAR APRN A 338.4 CHRONIC PAIN SYNDROME 08/08/2010 LUCIANO PACKAGING SUPERVISOR, JENNY L 338.4 CHRONIC PAIN SYNDROME 08/08/2010 RAH SIFUENTES, ANA Servin 338.4 CHRONIC PAIN SYNDROME 08/08/2010 RAH SIFUENTES, ANA Servin 338.4 CHRONIC PAIN SYNDROME 08/08/2010 LUCIANO PACKAGING SUPERVISOR, JENNY L 338.4 CHRONIC PAIN SYNDROME 08/08/2010 JENSEN TREVINO, GWEN 338.4 CHRONIC PAIN SYNDROME 08/08/2010 BOEJOANN PHD, ANA A 338.4 CHRONIC PAIN SYNDROME 08/08/2010 BOEJOANN PHD, ANA A 338.4 CHRONIC PAIN SYNDROME 08/08/2010 BOEJOANN PHD, ANA A 338.4 CHRONIC PAIN SYNDROME 08/08/2010 MADL PACKAGING SUPERVISOR, JENNY L 338.4 CHRONIC PAIN SYNDROME 08/08/2010 BOEJOANN PHD, ANA A 338.4 CHRONIC PAIN SYNDROME 08/08/2010 BOEJOANN PHD, ANA A 338.4 CHRONIC PAIN SYNDROME 08/08/2010 MADL PACKAGING SUPERVISOR, JENNY L 338.4 CHRONIC PAIN SYNDROME 08/08/2010 BOEJOANN PHD, ANA A 338.4 CHRONIC PAIN SYNDROME 08/08/2010 HELM DO CHRIS K 338.4 CHRONIC PAIN SYNDROME 08/08/2010 MADL PACKAGING SUPERVISOR, JENNY L 338.4 CHRONIC PAIN SYNDROME 08/08/2010 MADL PACKAGING SUPERVISOR, JENNY L 338.4 CHRONIC PAIN SYNDROME 08/08/2010 BOEJOANN PHD, ANA A 338.4 CHRONIC PAIN SYNDROME 08/08/2010 BOEJOANN PHD, ANA A 338.4 CHRONIC PAIN SYNDROME 08/08/2010 MADL PACKAGING SUPERVISOR, JENNY L 338.4 CHRONIC PAIN SYNDROME 08/08/2010 MADL PACKAGING SUPERVISOR, JENNY L 338.4 CHRONIC PAIN SYNDROME 08/08/2010 HELM DO CHRIS K 338.4 CHRONIC PAIN SYNDROME 09/29/2010 Ot 784.0 10/09/2010 307.81 HEADACHE, TENSION 10/09/2010 346.90 MIGRAINE HEADACHE 10/09/2010 HELM DO, CHRIS K 307.81 HEADACHE, TENSION 10/09/2010 HELM DO, CHRIS K 346.90 MIGRAINE HEADACHE 10/09/2010 307.81 HEADACHE, TENSION 10/09/2010 346.90 MIGRAINE HEADACHE 10/09/2010 HELM DO, CHRIS K 307.81 HEADACHE, TENSION 10/09/2010 HELM DO, CHRIS K 346.90 MIGRAINE HEADACHE 10/09/2010 TIMI SANTOS MD 307.81 HEADACHE, TENSION 10/09/2010 TIMI SANTOS MD 346.90 MIGRAINE HEADACHE 10/09/2010 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, CAMMY B 307.81 HEADACHE, TENSION 10/09/2010 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, CAMMY B 346.90 MIGRAINE HEADACHE 10/09/2010 TOM TREVINO, TIMI 307.81 HEADACHE, TENSION 10/09/2010 TOM TREVINO, TIMI 346.90 MIGRAINE HEADACHE 10/09/2010 TOM TREVINO, TIMI 307.81 HEADACHE, TENSION 10/09/2010 TOM TREVINO, TIMI 346.90 MIGRAINE HEADACHE 10/09/2010 TOM TREVINO, TIMI 307.81 HEADACHE, TENSION 10/09/2010 TOM TREVINO, TIMI 346.90 MIGRAINE HEADACHE 10/09/2010 TOM TREVINO, TIMI 307.81 HEADACHE, TENSION 10/09/2010 TOM TREVINO, TIMI 346.90 MIGRAINE HEADACHE 10/09/2010 TOM TREVINO, TIMI 307.81 HEADACHE, TENSION 10/09/2010 TOM TREVINO, TIMI 346.90 MIGRAINE HEADACHE 10/09/2010 HELM DO, CHRIS K 307.81 HEADACHE, TENSION 10/09/2010 HELM DO, CHRIS K 346.90 MIGRAINE HEADACHE 10/09/2010 ALISA PACKAGING SUPERVISOR, DOMENIC A 307.81 HEADACHE, TENSION 10/09/2010 ALISA PACKAGING SUPERVISOR, DOMENIC A 346.90 MIGRAINE HEADACHE 10/09/2010 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, CAMMY B 307.81 HEADACHE, TENSION 10/09/2010 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, CAMMY B 346.90 MIGRAINE HEADACHE 10/09/2010 HELM DO, CHRIS K 307.81 HEADACHE, TENSION 10/09/2010 HELM DO, CHRIS K 346.90 MIGRAINE HEADACHE 10/09/2010 RAH PHD, ANA A 307.81 HEADACHE, TENSION 10/09/2010 RAH PHD, ANA A 346.90 MIGRAINE HEADACHE 10/09/2010 ALISA PACKAGING SUPERVISOR, DOMENIC A 307.81 HEADACHE, TENSION 10/09/2010 ALISA PACKAGING SUPERVISOR, DOMENIC A 346.90 MIGRAINE HEADACHE 10/09/2010 MADL PACKAGING SUPERVISOR, JENNY L 307.81 HEADACHE, TENSION 10/09/2010 MADL PACKAGING SUPERVISOR, JENNY L 346.90 MIGRAINE HEADACHE 10/09/2010 RAH PHD, ANA A 307.81 HEADACHE, TENSION 10/09/2010 RAH PHD, ANA A 346.90 MIGRAINE HEADACHE 10/09/2010 RAH PHD, ANA A 307.81 HEADACHE, TENSION 10/09/2010 BOEKHOUT PHD, ANA A 346.90 MIGRAINE HEADACHE 10/09/2010 MADL PACKAGING SUPERVISOR, JENNY L 307.81 HEADACHE, TENSION 10/09/2010 MADL PACKAGING SUPERVISOR, JENNY L 346.90 MIGRAINE HEADACHE 10/09/2010 JENSEN TREVINO, GWEN 307.81 HEADACHE, TENSION 10/09/2010 JENSEN TREVINO, GWEN 346.90 MIGRAINE HEADACHE 10/09/2010 BOEKHOUT PHD, ANA A 307.81 HEADACHE, TENSION 10/09/2010 BOEKHOUT PHD, ANA A 346.90 MIGRAINE HEADACHE 10/09/2010 BOEKHOUT PHD, ANA A 307.81 HEADACHE, TENSION 10/09/2010 BOEKHOUT PHD, ANA A 346.90 MIGRAINE HEADACHE 10/09/2010 BOEKHOUT PHD, ANA A 307.81 HEADACHE, TENSION 10/09/2010 BOEKHOUT PHD, ANA A 346.90 MIGRAINE HEADACHE 10/09/2010 MADL PACKAGING SUPERVISOR, JENNY L 307.81 HEADACHE, TENSION 10/09/2010 MADL PACKAGING SUPERVISOR, JENNY L 346.90 MIGRAINE HEADACHE 10/09/2010 BOEKHOUT PHD, ANA A 307.81 HEADACHE, TENSION 10/09/2010 BOEKHOUT PHD, ANA A 346.90 MIGRAINE HEADACHE 10/09/2010 BOEKHOUT PHD, ANA A 307.81 HEADACHE, TENSION 10/09/2010 BOEKHOUT PHD, ANA A 346.90 MIGRAINE HEADACHE 10/09/2010 MADL PACKAGING SUPERVISOR, JENNY L 307.81 HEADACHE, TENSION 10/09/2010 MADL PACKAGING SUPERVISOR, JENNY L 346.90 MIGRAINE HEADACHE 10/09/2010 BOEKHOUT PHD, ANA A 307.81 HEADACHE, TENSION 10/09/2010 BOEKHOUT PHD, ANA A 346.90 MIGRAINE HEADACHE 10/09/2010 HELM DO, CHRIS K 307.81 HEADACHE, TENSION 10/09/2010 HELM DO, CHRIS K 346.90 MIGRAINE HEADACHE 10/09/2010 MADL PACKAGING SUPERVISOR, JENNY L 307.81 HEADACHE, TENSION 10/09/2010 MADL PACKAGING SUPERVISOR, JENNY L 346.90 MIGRAINE HEADACHE 10/09/2010 MADL PACKAGING SUPERVISOR, JENNY L 307.81 HEADACHE, TENSION 10/09/2010 MADL PACKAGING SUPERVISOR, JENNY L 346.90 MIGRAINE HEADACHE 10/09/2010 RAH PHD, ANA A 307.81 HEADACHE, TENSION 10/09/2010 [facility] 346.90 MIGRAINE HEADACHE 10/09/2010 BOEOUT PHD, ANA A 307.81 HEADACHE, TENSION 10/09/2010 [facility], ANA A 346.90 MIGRAINE HEADACHE 10/09/2010 MADL PACKAGING SUPERVISOR, JENNY L 307.81 HEADACHE, TENSION 10/09/2010 MADL PACKAGING SUPERVISOR, JENNY L 346.90 MIGRAINE HEADACHE 10/09/2010 MADL PACKAGING SUPERVISOR, JENNY L 307.81 HEADACHE, TENSION 10/09/2010 MADL PACKAGING SUPERVISOR, JENNY L 346.90 MIGRAINE HEADACHE 10/09/2010 HELM DO, CHRIS K 307.81 HEADACHE, TENSION 10/09/2010 HELM DO, CHRIS K 346.90 MIGRAINE HEADACHE 10/16/2010 465.9 Upper Respiratory Infection 10/16/2010 HELM DO, CHRIS K 465.9 Upper Respiratory Infection 10/16/2010 465.9 Upper Respiratory Infection 10/16/2010 HELM DO, CHRIS K 465.9 Upper Respiratory Infection 10/16/2010 TIMI SANTOS MD 465.9 Upper Respiratory Infection 10/16/2010 CAMMY TAI LCPC 465.9 Upper Respiratory Infection 10/16/2010 TIMI SANTOS MD 465.9 Upper Respiratory Infection 10/16/2010 TIMI SANTOS MD 465.9 Upper Respiratory Infection 10/16/2010 TIMI SANTOS MD 465.9 Upper Respiratory Infection 10/16/2010 TIMI SANTOS MD 465.9 Upper Respiratory Infection 10/16/2010 TIMI SANTOS MD 465.9 Upper Respiratory Infection 10/16/2010 HELM , CHRIS K 465.9 Upper Respiratory Infection 10/16/2010 DOMENIC CUELLAR APRN A 465.9 Upper Respiratory Infection 10/16/2010 CAMMY TAI LCPC 465.9 Upper Respiratory Infection 10/16/2010 HELM DO CHRIS K 465.9 Upper Respiratory Infection 10/16/2010 RAH SIFUENTES, ANA A 465.9 Upper Respiratory Infection 10/16/2010 ALISA FAZAL DOMENIC A 465.9 Upper Respiratory Infection 10/16/2010 MADL PACKAGING SUPERVISOR, JENNY L 465.9 Upper Respiratory Infection 10/16/2010 BOEOUT PHD, ANA A 465.9 Upper Respiratory Infection 10/16/2010 [facility] PHD, ANA A 465.9 Upper Respiratory Infection 10/16/2010 MADL PACKAGING SUPERVISOR, JENNY L 465.9 Upper Respiratory Infection 10/16/2010 JENSEN TREVINO, GWEN 465.9 Upper Respiratory Infection 10/16/2010 [facility] PHD, ANA A 465.9 Upper Respiratory Infection 10/16/2010 [facility] PHD, ANA A 465.9 Upper Respiratory Infection 10/16/2010 [facility] PHD, ANA A 465.9 Upper Respiratory Infection 10/16/2010 MADL PACKAGING SUPERVISOR, JENNY L 465.9 Upper Respiratory Infection 10/16/2010 [facility] PHD, ANA A 465.9 Upper Respiratory Infection 10/16/2010 [facility] PHD, ANA A 465.9 Upper Respiratory Infection 10/16/2010 MADL PACKAGING SUPERVISOR, JENNY L 465.9 Upper Respiratory Infection 10/16/2010 [facility] PHD, ANA A 465.9 Upper Respiratory Infection 10/16/2010 HELM DO, CHRIS K 465.9 Upper Respiratory Infection 10/16/2010 MADL PACKAGING SUPERVISOR, JENNY L 465.9 Upper Respiratory Infection 10/16/2010 MADL PACKAGING SUPERVISOR, JENNY L 465.9 Upper Respiratory Infection 10/16/2010 [facility] PHD, ANA A 465.9 Upper Respiratory Infection 10/16/2010 [facility] PHD, ANA A 465.9 Upper Respiratory Infection 10/16/2010 MADL PACKAGING SUPERVISOR, JENNY L 465.9 Upper Respiratory Infection 10/16/2010 MADL PACKAGING SUPERVISOR, JENNY L 465.9 Upper Respiratory Infection 10/16/2010 HELM DO, CHRIS K 465.9 Upper Respiratory Infection 10/23/2010 466.0 Bronchitis, Acute 10/23/2010 HELM DO, CHRIS K 466.0 Bronchitis, Acute 10/23/2010 466.0 Bronchitis, Acute 10/23/2010 HELM DO, CHRIS K 466.0 Bronchitis, Acute 10/23/2010 TIMI SANTOS MD 466.0 Bronchitis, Acute 10/23/2010 ZAIRE SWIFT, CAMMY Maldonado 466.0 Bronchitis, Acute 10/23/2010 TOM TREVINO TIMI 466.0 Bronchitis, Acute 10/23/2010 TOM TREVINO, TIMI 466.0 Bronchitis, Acute 10/23/2010 TOM TREVINO, TIMI 466.0 Bronchitis, Acute 10/23/2010 TOM TREVINO, TIMI 466.0 Bronchitis, Acute 10/23/2010 TOM TREVINO, TIMI 466.0 Bronchitis, Acute 10/23/2010 HELM DO, CHRIS K 466.0 Bronchitis, Acute 10/23/2010 ALISA PACKAGING SUPERVISOR, DOMENIC A 466.0 Bronchitis, Acute 10/23/2010 ZAIRE SWIFT, CAMMY Maldonado 466.0 Bronchitis, Acute 10/23/2010 HELM DO, CHRIS K 466.0 Bronchitis, Acute 10/23/2010 BOEJOANN PHD, ANA A 466.0 Bronchitis, Acute 10/23/2010 ALISA PACKAGING SUPERVISOR, DOMENIC A 466.0 Bronchitis, Acute 10/23/2010 MADL PACKAGING SUPERVISOR, JENNY L 466.0 Bronchitis, Acute 10/23/2010 BOEDBOUT PHD, ANA A 466.0 Bronchitis, Acute 10/23/2010 BOEKHOUT PHD, ANA A 466.0 Bronchitis, Acute 10/23/2010 MADL PACKAGING SUPERVISOR, JENNY L 466.0 Bronchitis, Acute 10/23/2010 JENSEN TREVINO, GWEN 466.0 Bronchitis, Acute 10/23/2010 BOEKHOUT PHD, ANA A 466.0 Bronchitis, Acute 10/23/2010 BOEKHOUT PHD, ANA A 466.0 Bronchitis, Acute 10/23/2010 BOEKHOUT PHD, ANA A 466.0 Bronchitis, Acute 10/23/2010 MADL PACKAGING SUPERVISOR, JENNY L 466.0 Bronchitis, Acute 10/23/2010 BOEKHOUT PHD, ANA A 466.0 Bronchitis, Acute 10/23/2010 BOEKHOUT PHD, ANA A 466.0 Bronchitis, Acute 10/23/2010 MADL PACKAGING SUPERVISOR, JENNY L 466.0 Bronchitis, Acute 10/23/2010 BOEKHOUT PHD, ANA A 466.0 Bronchitis, Acute 10/23/2010 HELM DO, CHRIS K 466.0 Bronchitis, Acute 10/23/2010 MADL PACKAGING SUPERVISOR, JENNY L 466.0 Bronchitis, Acute 10/23/2010 MADL PACKAGING SUPERVISOR, JENNY L 466.0 Bronchitis, Acute 10/23/2010 RAH PHD, ANA A 466.0 Bronchitis, Acute 10/23/2010 RAH PHD, ANA A 466.0 Bronchitis, Acute 10/23/2010 MADL PACKAGING SUPERVISOR, JENNY L 466.0 Bronchitis, Acute 10/23/2010 MADL PACKAGING SUPERVISOR, JENNY L 466.0 Bronchitis, Acute 10/23/2010 MYNOR HELM DOA K 466.0 Bronchitis, Acute 12/31/2010 Ot 276.50 12/31/2010 Ot 787.91 12/31/2010 Ot 789.02 03/11/2011 Ot 346.90 MIGRAINE UNSPECIFIED W/O INTRACT MGRN W/ 03/11/2011 Ot 784.0 HEADACHE 04/17/2011 691.8 Dermatitis Atopic Eczema 04/17/2011 728.71 Plantar Fascial Fibromatosis 04/17/2011 CHRIS HELM DO K 691.8 Dermatitis Atopic Eczema 04/17/2011 CHRIS HELM DO 728.71 Plantar Fascial Fibromatosis 04/17/2011 691.8 Dermatitis Atopic Eczema 04/17/2011 728.71 Plantar Fascial Fibromatosis 04/17/2011 CHRIS HELM DO K 691.8 Dermatitis Atopic Eczema 04/17/2011 CHRIS HELM DO K 728.71 Plantar Fascial Fibromatosis 04/17/2011 TIMI SANTOS MD 691.8 Dermatitis Atopic Eczema 04/17/2011 TIMI SANTOS MD 728.71 Plantar Fascial Fibromatosis 04/17/2011 CAMMY TAI LCPC 691.8 Dermatitis Atopic Eczema 04/17/2011 CAMMY TAI LCPC 728.71 Plantar Fascial Fibromatosis 04/17/2011 TIMI SANTOS MD 691.8 Dermatitis Atopic Eczema 04/17/2011 TIMI SANTOS MD 728.71 Plantar Fascial Fibromatosis 04/17/2011 TIMI SANTOS MD1.8 Dermatitis Atopic Eczema 04/17/2011 TIMI SANTOS MD 728.71 Plantar Fascial Fibromatosis 04/17/2011 TIMI SANTOS MD1.8 Dermatitis Atopic Eczema 04/17/2011 TIMI SANTOS MD 728.71 Plantar Fascial Fibromatosis 04/17/2011 HUERTER MD, TIMI 691.8 Dermatitis Atopic Eczema 04/17/2011 TOM TREVINO, TIMI 728.71 Plantar Fascial Fibromatosis 04/17/2011 TOM TREVINO, TIMI 691.8 Dermatitis Atopic Eczema 04/17/2011 TOM TREVINO, TIMI 728.71 Plantar Fascial Fibromatosis 04/17/2011 HELM DO, CHRIS K 691.8 Dermatitis Atopic Eczema 04/17/2011 HELM DO, CHRIS K 728.71 Plantar Fascial Fibromatosis 04/17/2011 ALISA PACKAGING SUPERVISOR DOMENIC A 691.8 Dermatitis Atopic Eczema 04/17/2011 ALISA PACKAGING SUPERVISOR, DOMENIC A 728.71 Plantar Fascial Fibromatosis 04/17/2011 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 CAMMY B 691.8 Dermatitis Atopic Eczema 04/17/2011 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 CAMMY B 728.71 Plantar Fascial Fibromatosis 04/17/2011 HELM DO, CHRIS K 691.8 Dermatitis Atopic Eczema 04/17/2011 HELM DO, CHRIS K 728.71 Plantar Fascial Fibromatosis 04/17/2011 RAH PHD, ANA A 691.8 Dermatitis Atopic Eczema 04/17/2011 RAH PHD, ANA Servin 728.71 Plantar Fascial Fibromatosis 04/17/2011 ALISA DIEHL DOMENIC A 691.8 Dermatitis Atopic Eczema 04/17/2011 SUSHIL CUELLAR APRNIDI A 728.71 Plantar Fascial Fibromatosis 04/17/2011 MADL PACKAGING SUPERVISOR, JENNY L 691.8 Dermatitis Atopic Eczema 04/17/2011 MADL PACKAGING SUPERVISOR, JENNY L 728.71 Plantar Fascial Fibromatosis 04/17/2011 RAH SIFUENTES, ANA A 691.8 Dermatitis Atopic Eczema 04/17/2011 RAH SIFUENTES, ANA A 728.71 Plantar Fascial Fibromatosis 04/17/2011 RAH SIFUENTES, ANA A 691.8 Dermatitis Atopic Eczema 04/17/2011 RAH SIFUENTES, ANA Servin 728.71 Plantar Fascial Fibromatosis 04/17/2011 MADL PACKAGING SUPERVISOR, JENNY L 691.8 Dermatitis Atopic Eczema 04/17/2011 MADL PACKAGING SUPERVISOR, JENNY L 728.71 Plantar Fascial Fibromatosis 04/17/2011 JENSEN TREVINO, BASHAR 691.8 Dermatitis Atopic Eczema 04/17/2011 JENSEN TREVINO, GWEN 728.71 Plantar Fascial Fibromatosis 04/17/2011 RAH SIFUENTES, ANA Servin 691.8 Dermatitis Atopic Eczema 04/17/2011 RAH SIFUENTES, ANA Servin 728.71 Plantar Fascial Fibromatosis 04/17/2011 RAH SIFUENTES, ANA A 691.8 Dermatitis Atopic Eczema 04/17/2011 RAH SIFUENTES, ANA Servin 728.71 Plantar Fascial Fibromatosis 04/17/2011 RAH PHD, ANA A 691.8 Dermatitis Atopic Eczema 04/17/2011 RAH PHD, ANA Servin 728.71 Plantar Fascial Fibromatosis 04/17/2011 MADL PACKAGING SUPERVISOR, JENNY L 691.8 Dermatitis Atopic Eczema 04/17/2011 MADL PACKAGING SUPERVISOR, JENNY L 728.71 Plantar Fascial Fibromatosis 04/17/2011 RAH SIFUENTES, ANA A 691.8 Dermatitis Atopic Eczema 04/17/2011 RAH SIFUENTES, ANA Servin 728.71 Plantar Fascial Fibromatosis 04/17/2011 RAH SIFUENTES, ANA A 691.8 Dermatitis Atopic Eczema 04/17/2011 RAH SIFUENTES, ANA Servin 728.71 Plantar Fascial Fibromatosis 04/17/2011 MADL PACKAGING SUPERVISOR, JENNY L 691.8 Dermatitis Atopic Eczema 04/17/2011 MADL PACKAGING SUPERVISOR, JENNY L 728.71 Plantar Fascial Fibromatosis 04/17/2011 ANA MONREAL PHD A 691.8 Dermatitis Atopic Eczema 04/17/2011 ANA MONREAL PHD 728.71 Plantar Fascial Fibromatosis 04/17/2011 HELM DO, CHRIS K 691.8 Dermatitis Atopic Eczema 04/17/2011 HELM DO, CHRIS K 728.71 Plantar Fascial Fibromatosis 04/17/2011 MADL PACKAGING SUPERVISOR, JENNY L 691.8 Dermatitis Atopic Eczema 04/17/2011 MADL PACKAGING SUPERVISOR, JENNY L 728.71 Plantar Fascial Fibromatosis 04/17/2011 MADL PACKAGING SUPERVISOR, JENNY L 691.8 Dermatitis Atopic Eczema 04/17/2011 MADL PACKAGING SUPERVISOR, JENNY L 728.71 Plantar Fascial Fibromatosis 04/17/2011 RAH PHD, ANA A 691.8 Dermatitis Atopic Eczema 04/17/2011 RAH PHD, ANA A 728.71 Plantar Fascial Fibromatosis 04/17/2011 RAH PHD, ANA A 691.8 Dermatitis Atopic Eczema 04/17/2011 [facility] A 728.71 Plantar Fascial Fibromatosis 04/17/2011 MADL PACKAGING SUPERVISOR, JENNY L 691.8 Dermatitis Atopic Eczema 04/17/2011 MADL PACKAGING SUPERVISOR, JENNY L 728.71 Plantar Fascial Fibromatosis 04/17/2011 MADL PACKAGING SUPERVISOR, JENNY L 691.8 Dermatitis Atopic Eczema 04/17/2011 MADL PACKAGING SUPERVISOR, JENNY L 728.71 Plantar Fascial Fibromatosis 04/17/2011 HELM DO, CHRIS K 691.8 Dermatitis Atopic Eczema 04/17/2011 HELM DO, CHRIS K 728.71 Plantar Fascial Fibromatosis 07/24/2011 216.9 Mole/nevus - Site Unspecified 07/24/2011 HELM DO CHRIS K 216.9 Mole/nevus - Site Unspecified 07/24/2011 216.9 Mole/nevus - Site Unspecified 07/24/2011 HELM DO, CHRIS K 216.9 Mole/nevus - Site Unspecified 07/24/2011 TIMI SANTOS MD 216.9 Mole/nevus - Site Unspecified 07/24/2011 CAMMY TAI LCPC 216.9 Mole/nevus - Site Unspecified 07/24/2011 TIMI SANTOS MD 216.9 Mole/nevus - Site Unspecified 07/24/2011 TIMI SANTOS MD 216.9 Mole/nevus - Site Unspecified 07/24/2011 TIMI SANTOS MD 216.9 Mole/nevus - Site Unspecified 07/24/2011 TIMI SANTOS MD 216.9 Mole/nevus - Site Unspecified 07/24/2011 TIMI SANTOS MD 216.9 Mole/nevus - Site Unspecified 07/24/2011 HELM DO CHRIS K 216.9 Mole/nevus - Site Unspecified 07/24/2011 ALISALYNN DIEHL, DOMENIC A 216.9 Mole/nevus - Site Unspecified 07/24/2011 CAMMY TAI LCPC 216.9 Mole/nevus - Site Unspecified 07/24/2011 HELM DO, CHRIS K 216.9 Mole/nevus - Site Unspecified 07/24/2011 BOEJOANN PHD, ANA A 216.9 Mole/nevus - Site Unspecified 07/24/2011 ALISA PACKAGING SUPERVISOR, DOMENIC A 216.9 Mole/nevus - Site Unspecified 07/24/2011 MADL PACKAGING SUPERVISOR, JENNY L 216.9 Mole/nevus - Site Unspecified 07/24/2011 BOEJOANN PHD, ANA A 216.9 Mole/nevus - Site Unspecified 07/24/2011 BOEJOANN PHD, ANA A 216.9 Mole/nevus - Site Unspecified 07/24/2011 MADL PACKAGING SUPERVISOR, JENNY L 216.9 Mole/nevus - Site Unspecified 07/24/2011 JENSEN TREVINO, GWEN 216.9 Mole/nevus - Site Unspecified 07/24/2011 BOEJOANN PHD, ANA A 216.9 Mole/nevus - Site Unspecified 07/24/2011 BOEJOANN PHD, ANA A 216.9 Mole/nevus - Site Unspecified 07/24/2011 BOEJOANN PHD, ANA A 216.9 Mole/nevus - Site Unspecified 07/24/2011 MADL PACKAGING SUPERVISOR, JENNY L 216.9 Mole/nevus - Site Unspecified 07/24/2011 BOEJOANN PHD, ANA A 216.9 Mole/nevus - Site Unspecified 07/24/2011 BOEJOANN PHD, ANA A 216.9 Mole/nevus - Site Unspecified 07/24/2011 MADL PACKAGING SUPERVISOR, JENNY L 216.9 Mole/nevus - Site Unspecified 07/24/2011 BOEJOANN PHD, ANA A 216.9 Mole/nevus - Site Unspecified 07/24/2011 HELM DO, CHRIS K 216.9 Mole/nevus - Site Unspecified 07/24/2011 MADL PACKAGING SUPERVISOR, JENNY L 216.9 Mole/nevus - Site Unspecified 07/24/2011 MADL PACKAGING SUPERVISOR, JENNY L 216.9 Mole/nevus - Site Unspecified 07/24/2011 BOEJOANN PHD, ANA A 216.9 Mole/nevus - Site Unspecified 07/24/2011 RAH PHD, ANA A 216.9 Mole/nevus - Site Unspecified 07/24/2011 MADL PACKAGING SUPERVISOR, JENNY L 216.9 Mole/nevus - Site Unspecified 07/24/2011 MADL PACKAGING SUPERVISOR, JENNY L 216.9 Mole/nevus - Site Unspecified 07/24/2011 HELM DO, CHRIS K 216.9 Mole/nevus - Site Unspecified 08/17/2011 V58.32 Suture Removal 08/17/2011 HELM DO, CHRIS K V58.32 Suture Removal 08/17/2011 V58.32 Suture Removal 08/17/2011 HELM DO, CHRIS K V58.32 Suture Removal 08/17/2011 TOM TREVINO, TIMI V58.32 Suture Removal 08/17/2011 CAMMY TAI LCPC V58.32 Suture Removal 08/17/2011 TOM TREVINO, TIMI V58.32 Suture Removal 08/17/2011 TOM TREVINO, TIMI V58.32 Suture Removal 08/17/2011 TOM TREVINO, TIMI V58.32 Suture Removal 08/17/2011 TOM TREVINO, TIMI V58.32 Suture Removal 08/17/2011 TOM TREVINO, TIMI V58.32 Suture Removal 08/17/2011 CHRIS HELM DO K V58.32 Suture Removal 08/17/2011 ALISA QUIROZN, DOMENIC A V58.32 Suture Removal 08/17/2011 CAMMY TAI LCPC V58.32 Suture Removal 08/17/2011 HELM DOCHRIS K V58.32 Suture Removal 08/17/2011 RAH SIFUENTES, ANA A V58.32 Suture Removal 08/17/2011 ALISA PACKAGING SUPERVISOR, DOMENIC A V58.32 Suture Removal 08/17/2011 LUCIANO PACKAGING SUPERVISOR, JENNY L V58.32 Suture Removal 08/17/2011 RAH SIFUENTES, ANA Servin V58.32 Suture Removal 08/17/2011 RAH SIFUENTES, ANA A V58.32 Suture Removal 08/17/2011 LUCIANO PACKAGING SUPERVISOR, JENNY L V58.32 Suture Removal 08/17/2011 GWEN STYLES MD V58.32 Suture Removal 08/17/2011 RAH SIFUENTES, ANA A V58.32 Suture Removal 08/17/2011 RAH PHD, ANA A V58.32 Suture Removal 08/17/2011 BOEJOANN PHD, ANA A V58.32 Suture Removal 08/17/2011 MADL PACKAGING SUPERVISOR, JENNY L V58.32 Suture Removal 08/17/2011 BOEJOANN PHD, ANA A V58.32 Suture Removal 08/17/2011 BOEJOANN PHD, ANA A V58.32 Suture Removal 08/17/2011 MADL PACKAGING SUPERVISOR, JENNY L V58.32 Suture Removal 08/17/2011 RAH PHD, ANA A V58.32 Suture Removal 08/17/2011 HELM DOCHRIS K V58.32 Suture Removal 08/17/2011 MADL PACKAGING SUPERVISOR, JENNY L V58.32 Suture Removal 08/17/2011 MADL PACKAGING SUPERVISOR, JENNY L V58.32 Suture Removal 08/17/2011 RAH PHD, ANA A V58.32 Suture Removal 08/17/2011 RAH PHD, ANA A V58.32 Suture Removal 08/17/2011 MADL PACKAGING SUPERVISOR, JENNY L V58.32 Suture Removal 08/17/2011 MADL PACKAGING SUPERVISOR, JENNY L V58.32 Suture Removal 08/17/2011 CHRIS HELM DO V58.32 Suture Removal 10/20/2011 Ot 473.9 CHRONIC SINUSITIS NOS 10/20/2011 Ot 784.0 HEADACHE 10/26/2011 388.70 Otalgia 10/26/2011 473.9 Sinusitis ( chronic) 10/26/2011 CHRIS HELM DO 388.70 Otalgia 10/26/2011 CHRIS HELM DO 473.9 Sinusitis (chronic) 10/26/2011 388.70 Otalgia 10/26/2011 473.9 Sinusitis ( chronic) 10/26/2011 CHRIS HELM DO 388.70 Otalgia 10/26/2011 CHRIS HELM DO 473.9 Sinusitis (chronic) 10/26/2011 TIMI SANTOS MD 388.70 Otalgia 10/26/2011 TIMI SANTOS MD 473.9 Sinusitis (chronic) 10/26/2011 CAMMY TAI LCPC 388.70 Otalgia 10/26/2011 ZAIRE SWIFT, CAMMY B 473.9 Sinusitis (chronic) 10/26/2011 TOM TREVINO, TIMI 388.70 Otalgia 10/26/2011 TOM TREVINO, TIMI 473.9 Sinusitis (chronic) 10/26/2011 TOM TREVINO, TIMI 388.70 Otalgia 10/26/2011 TOM TREVINO, TIMI 473.9 Sinusitis (chronic) 10/26/2011 TOM TREVINO, TIMI 388.70 Otalgia 10/26/2011 TOM TREVINO, TIMI 473.9 Sinusitis (chronic) 10/26/2011 TOM TREVINO, TIMI 388.70 Otalgia 10/26/2011 TOM TREVINO, TIMI 473.9 Sinusitis (chronic) 10/26/2011 TOM TREVINO, TIMI 388.70 Otalgia 10/26/2011 TOM TREVINO, TIMI 473.9 Sinusitis (chronic) 10/26/2011 HELM DO CHRIS K 388.70 Otalgia 10/26/2011 ALICJA DOMYNORA K 473.9 Sinusitis (chronic) 10/26/2011 DOMENIC CUELLAR APRN A 388.70 Otalgia 10/26/2011 DOMENIC CUELLAR APRN A 473.9 Sinusitis (chronic) 10/26/2011 CAMMY TAI LCPC B 388.70 Otalgia 10/26/2011 CAMMY TAI LCPC B 473.9 Sinusitis (chronic) 10/26/2011 HELM DO CHRIS K 388.70 Otalgia 10/26/2011 ALICJA DOMYNORA K 473.9 Sinusitis (chronic) 10/26/2011 ANA MONREAL PHD 388.70 Otalgia 10/26/2011 ANA MONREAL PHD 473.9 Sinusitis (chronic) 10/26/2011 DOMENIC CUELLAR APRN A 388.70 Otalgia 10/26/2011 DOMENIC CUELLAR APRN A 473.9 Sinusitis (chronic) 10/26/2011 JENNY WOLF APRN 388.70 Otalgia 10/26/2011 JENNY WOLF APRN L 473.9 Sinusitis (chronic) 10/26/2011 ANA MONREAL PHD 388.70 Otalgia 10/26/2011 BOEKHOUT PHD, ANA A 473.9 Sinusitis (chronic) 10/26/2011 RAH PHD, ANA A 388.70 Otalgia 10/26/2011 RAH PHD, ANA A 473.9 Sinusitis (chronic) 10/26/2011 MADL PACKAGING SUPERVISOR, JENNY L 388.70 Otalgia 10/26/2011 MADL PACKAGING SUPERVISOR, JENNY L 473.9 Sinusitis (chronic) 10/26/2011 JENSEN TREVINO, GWEN 388.70 Otalgia 10/26/2011 JENSEN TREVINO, GWEN 473.9 Sinusitis (chronic) 10/26/2011 RAH PHD, ANA A 388.70 Otalgia 10/26/2011 RAH PHD, ANA A 473.9 Sinusitis (chronic) 10/26/2011 RAH PHD, ANA A 388.70 Otalgia 10/26/2011 RAH PHD, ANA A 473.9 Sinusitis (chronic) 10/26/2011 RAH PHD, ANA A 388.70 Otalgia 10/26/2011 BOEJOANN PHD, ANA A 473.9 Sinusitis (chronic) 10/26/2011 MADL PACKAGING SUPERVISOR, JENNY L 388.70 Otalgia 10/26/2011 MADL PACKAGING SUPERVISOR, JENNY L 473.9 Sinusitis (chronic) 10/26/2011 RAH PHD, ANA A 388.70 Otalgia 10/26/2011 RAH PHD, ANA A 473.9 Sinusitis (chronic) 10/26/2011 RAH PHD, ANA A 388.70 Otalgia 10/26/2011 RAH PHD, ANA A 473.9 Sinusitis (chronic) 10/26/2011 MADL PACKAGING SUPERVISOR, JENNY L 388.70 Otalgia 10/26/2011 MADL PACKAGING SUPERVISOR, JENNY L 473.9 Sinusitis (chronic) 10/26/2011 RAH PHD, ANA A 388.70 Otalgia 10/26/2011 RAH PHD, ANA A 473.9 Sinusitis (chronic) 10/26/2011 HELM DO CHRIS K 388.70 Otalgia 10/26/2011 HELM DO CHRIS K 473.9 Sinusitis (chronic) 10/26/2011 MADL PACKAGING SUPERVISOR, JENNY L 388.70 Otalgia 10/26/2011 MADL PACKAGING SUPERVISOR, JENNY L 473.9 Sinusitis (chronic) 10/26/2011 MADL PACKAGING SUPERVISOR, JENNY L 388.70 Otalgia 10/26/2011 MADL PACKAGING SUPERVISOR, JENNY L 473.9 Sinusitis (chronic) 10/26/2011 RAH PHD, ANA A 388.70 Otalgia 10/26/2011 RAH PHD, ANA A 473.9 Sinusitis (chronic) 10/26/2011 RAH PHD, ANA A 388.70 Otalgia 10/26/2011 RAH PHD, ANA A 473.9 Sinusitis (chronic) 10/26/2011 MADL PACKAGING SUPERVISOR, JENNY L 388.70 Otalgia 10/26/2011 MADL PACKAGING SUPERVISOR, JENNY L 473.9 Sinusitis (chronic) 10/26/2011 MADL PACKAGING SUPERVISOR, JENNY L 388.70 Otalgia 10/26/2011 MADL PACKAGING SUPERVISOR, JENNY L 473.9 Sinusitis (chronic) 10/26/2011 CHRIS HELM DO K 388.70 Otalgia 10/26/2011 CHRIS HELM DO K 473.9 Sinusitis (chronic) 02/06/2012 381.81 Eustachian Tube Dysfunction 02/06/2012 487.1 Influenza 02/06/2012 V25.9 Contraception Management 02/06/2012 CHRIS HELM DO 381.81 Eustachian Tube Dysfunction 02/06/2012 CHRIS HELM DO 487.1 Influenza 02/06/2012 CHRIS HELM DO V25.9 Contraception Management 02/06/2012 381.81 Eustachian Tube Dysfunction 02/06/2012 487.1 Influenza 02/06/2012 V25.9 Contraception Management 02/06/2012 CHRIS HELM DO 381.81 Eustachian Tube Dysfunction 02/06/2012 CHRIS HELM DO 487.1 Influenza 02/06/2012 CHRIS HEML DO V25.9 Contraception Management 02/06/2012 TIMI SANTOS MD 381.81 Eustachian Tube Dysfunction 02/06/2012 TIMI SANTOS MD 487.1 Influenza 02/06/2012 TOM TREVINO, TIMI V25.9 Contraception Management 02/06/2012 CAMMY TAI LCPC 381.81 Eustachian Tube Dysfunction 02/06/2012 CAMMY TAI LCPC 487.1 Influenza 02/06/2012 CAMMY TAI LCPC V25.9 Contraception Management 02/06/2012 TIMI SANTOS MD 381.81 Eustachian Tube Dysfunction 02/06/2012 TIMI SANTOS MD 487.1 Influenza 02/06/2012 TIMI SANTOS MD V25.9 Contraception Management 02/06/2012 TOM TREVINO, TIMI 381.81 Eustachian Tube Dysfunction 02/06/2012 TIMI SANTOS MD 487.1 Influenza 02/06/2012 TOM TREVINO, TIMI V25.9 Contraception Management 02/06/2012 TIMI SANTOS MD 381.81 Eustachian Tube Dysfunction 02/06/2012 TIMI SANTOS MD 487.1 Influenza 02/06/2012 TIMI SANTOS MD V25.9 Contraception Management 02/06/2012 TOM TREVINO, TIMI 381.81 Eustachian Tube Dysfunction 02/06/2012 TIMI SANTOS MD 487.1 Influenza 02/06/2012 TIMI SANTOS MD V25.9 Contraception Management 02/06/2012 TOM TREVINO, TIMI 381.81 Eustachian Tube Dysfunction 02/06/2012 TIMI SANTOS MD 487.1 Influenza 02/06/2012 TIMI SANTOS MD V25.9 Contraception Management 02/06/2012 CHRIS HELM DO 381.81 Eustachian Tube Dysfunction 02/06/2012 CHRIS HELM DO 487.1 Influenza 02/06/2012 CHRIS HELM DO V25.9 Contraception Management 02/06/2012 DOMENIC CUELLAR APRN 381.81 Eustachian Tube Dysfunction 02/06/2012 DOMENIC CUELLAR APRN 487.1 Influenza 02/06/2012 DOMENIC CUELLAR APRN V25.9 Contraception Management 02/06/2012 CAMMY TAI LCPC 381.81 Eustachian Tube Dysfunction 02/06/2012 CAMMY TAI LCPC 487.1 Influenza 02/06/2012 CAMMY TAI LCPC V25.9 Contraception Management 02/06/2012 HELM DO, CHRIS K 381.81 Eustachian Tube Dysfunction 02/06/2012 HELM DO, CHRIS K 487.1 Influenza 02/06/2012 HELM DO, CHRIS K V25.9 Contraception Management 02/06/2012 ANA MONREAL PHD 381.81 Eustachian Tube Dysfunction 02/06/2012 ANA MONREAL PHD 487.1 Influenza 02/06/2012 ANA MONREAL PHD V25.9 Contraception Management 02/06/2012 ALISA APRN, DOMENIC A 381.81 Eustachian Tube Dysfunction 02/06/2012 ALISADOMENIC Rodriguez APRN A 487.1 Influenza 02/06/2012 ALISADOMENIC Rodriguez APRN A V25.9 Contraception Management 02/06/2012 MADL PACKAGING SUPERVISOR, JENNY L 381.81 Eustachian Tube Dysfunction 02/06/2012 MADL PACKAGING SUPERVISOR, JENNY L 487.1 Influenza 02/06/2012 MADL PACKAGING SUPERVISOR, JENNY L V25.9 Contraception Management 02/06/2012 ANA MONREAL PHD 381.81 Eustachian Tube Dysfunction 02/06/2012 ANA MONREAL PHD 487.1 Influenza 02/06/2012 ANA MONREAL PHD V25.9 Contraception Management 02/06/2012 ANA MONREAL PHD 381.81 Eustachian Tube Dysfunction 02/06/2012 ANA MONREAL PHD 487.1 Influenza 02/06/2012 ANA MONREAL PHD V25.9 Contraception Management 02/06/2012 MADL PACKAGING SUPERVISOR, JENNY L 381.81 Eustachian Tube Dysfunction 02/06/2012 MADL PACKAGING SUPERVISOR, JENNY L 487.1 Influenza 02/06/2012 MADL PACKAGING SUPERVISOR, JENNY L V25.9 Contraception Management 02/06/2012 GWEN STYLSE MD 381.81 Eustachian Tube Dysfunction 02/06/2012 GWEN STYLES MD 487.1 Influenza 02/06/2012 GWEN STYLES MD V25.9 Contraception Management 02/06/2012 ANA MONREAL PHD 381.81 Eustachian Tube Dysfunction 02/06/2012 ANA MONREAL PHD 487.1 Influenza 02/06/2012 ANA MONREAL PHD V25.9 Contraception Management 02/06/2012 ANA MONREAL PHD 381.81 Eustachian Tube Dysfunction 02/06/2012 ANA MONREAL PHD 487.1 Influenza 02/06/2012 ANA MONREAL PHD V25.9 Contraception Management 02/06/2012 ANA MONREAL PHD 381.81 Eustachian Tube Dysfunction 02/06/2012 ANA MONREAL PHD 487.1 Influenza 02/06/2012 ANA MONREAL PHD V25.9 Contraception Management 02/06/2012 MADL PACKAGING SUPERVISOR, JENNY L 381.81 Eustachian Tube Dysfunction 02/06/2012 MADL PACKAGING SUPERVISOR, JENNY L 487.1 Influenza 02/06/2012 MADL PACKAGING SUPERVISOR, JENNY L V25.9 Contraception Management 02/06/2012 ANA MONREAL PHD 381.81 Eustachian Tube Dysfunction 02/06/2012 ANA MONREAL PHD 487.1 Influenza 02/06/2012 ANA MONREAL PHD V25.9 Contraception Management 02/06/2012 ANA MONREAL PHD 381.81 Eustachian Tube Dysfunction 02/06/2012 ANA MONREAL PHD 487.1 Influenza 02/06/2012 ANA MONREAL PHD V25.9 Contraception Management 02/06/2012 MADL PACKAGING SUPERVISOR, JENNY L 381.81 Eustachian Tube Dysfunction 02/06/2012 MADL PACKAGING SUPERVISOR, JENNY L 487.1 Influenza 02/06/2012 MADL PACKAGING SUPERVISOR, JENNY L V25.9 Contraception Management 02/06/2012 ANA MONREAL PHD 381.81 Eustachian Tube Dysfunction 02/06/2012 ANA MONREAL PHD 487.1 Influenza 02/06/2012 ANA MONREAL PHD V25.9 Contraception Management 02/06/2012 CHRIS HELM DO 381.81 Eustachian Tube Dysfunction 02/06/2012 CHRIS HELM DO 487.1 Influenza 02/06/2012 CHRIS HELM DO V25.9 Contraception Management 02/06/2012 MADL PACKAGING SUPERVISOR, JENNY L 381.81 Eustachian Tube Dysfunction 02/06/2012 MADL PACKAGING SUPERVISOR, JENNY L 487.1 Influenza 02/06/2012 MADL PACKAGING SUPERVISOR, JENNY L V25.9 Contraception Management 02/06/2012 MADL PACKAGING SUPERVISOR, JENNY L 381.81 Eustachian Tube Dysfunction 02/06/2012 MADL PACKAGING SUPERVISOR, JENNY L 487.1 Influenza 02/06/2012 MADL PACKAGING SUPERVISOR, JENNY L V25.9 Contraception Management 02/06/2012 RAH PHD, ANA Servin 381.81 Eustachian Tube Dysfunction 02/06/2012 RAH PHD, ANA Servin 487.1 Influenza 02/06/2012 RAH PHD, ANA Servin V25.9 Contraception Management 02/06/2012 RAH PHD, ANA Servin 381.81 Eustachian Tube Dysfunction 02/06/2012 RAH PHD, ANA Servin 487.1 Influenza 02/06/2012 RAH PHD, ANA Servin V25.9 Contraception Management 02/06/2012 MADL PACKAGING SUPERVISOR, JENNY L 381.81 Eustachian Tube Dysfunction 02/06/2012 MADL PACKAGING SUPERVISOR, JENNY L 487.1 Influenza 02/06/2012 MADL PACKAGING SUPERVISOR, JENNY L V25.9 Contraception Management 02/06/2012 MADL PACKAGING SUPERVISOR, JENNY L 381.81 Eustachian Tube Dysfunction 02/06/2012 MADL PACKAGING SUPERVISOR, JENNY L 487.1 Influenza 02/06/2012 MADL PACKAGING SUPERVISOR, JENNY L V25.9 Contraception Management 02/06/2012 CHRIS HELM DO K 381.81 Eustachian Tube Dysfunction 02/06/2012 CHRIS HELM DO 487.1 Influenza 02/06/2012 CHRIS HELM DO V25.9 Contraception Management 05/19/2012 V25.49 CONTRACEPTION SURVEILLANCE (REPEAT RX) 05/19/2012 CHRIS HELM DO V25.49 CONTRACEPTION SURVEILLANCE (REPEAT RX) 05/19/2012 V25.49 Contraception Surveillance (repeat Rx) 05/19/2012 CHRIS HELM DO V25.49 Contraception Surveillance (repeat Rx) 05/19/2012 TIMI SANTOS MD V25.49 Contraception Surveillance (repeat Rx) 05/19/2012 CAMMY TAI LCPC V25.49 Contraception Surveillance (repeat Rx) 05/19/2012 TIMI SANTOS MD V25.49 Contraception Surveillance (repeat Rx) 05/19/2012 TIMI SANTOS MD V25.49 Contraception Surveillance (repeat Rx) 05/19/2012 TIMI SANTOS MD V25.49 Contraception Surveillance (repeat Rx) 05/19/2012 TIMI SANTOS MD V25.49 Contraception Surveillance (repeat Rx) 05/19/2012 TIMI SANTSO MD V25.49 Contraception Surveillance (repeat Rx) 05/19/2012 CHRIS HELM DO V25.49 Contraception Surveillance (repeat Rx) 05/19/2012 DOMENIC CUELLAR APRN V25.49 Contraception Surveillance (repeat Rx) 05/19/2012 CAMMY TAI LCPC V25.49 Contraception Surveillance (repeat Rx) 05/19/2012 CHRIS HELM DO V25.49 Contraception Surveillance (repeat Rx) 05/19/2012 ANA MONREAL PHD V25.49 Contraception Surveillance (repeat Rx) 05/19/2012 DOMENIC CUELLAR APRN V25.49 Contraception Surveillance (repeat Rx) 05/19/2012 JENNY WOLF APRN V25.49 Contraception Surveillance (repeat Rx) 05/19/2012 ANA MONREAL PHD V25.49 Contraception Surveillance (repeat Rx) 05/19/2012 ANA MONREAL PHD V25.49 Contraception Surveillance (repeat Rx) 05/19/2012 JENNY WOLF APRN V25.49 Contraception Surveillance (repeat Rx) 05/19/2012 GWEN STYLES MD V25.49 Contraception Surveillance (repeat Rx) 05/19/2012 ANA MONREAL PHD V25.49 Contraception Surveillance (repeat Rx) 05/19/2012 ANA MONREAL PHD V25.49 Contraception Surveillance (repeat Rx) 05/19/2012 ANA MONREAL PHD V25.49 Contraception Surveillance (repeat Rx) 05/19/2012 MADL PACKAGING SUPERVISOR, JENNY L V25.49 Contraception Surveillance (repeat Rx) 05/19/2012 ANA MONREAL PHD V25.49 Contraception Surveillance (repeat Rx) 05/19/2012 ANA MONREAL PHD V25.49 Contraception Surveillance (repeat Rx) 05/19/2012 CHACORTAL PACKAGING SUPERVISOR, JENNY Brown V25.49 Contraception Surveillance (repeat Rx) 05/19/2012 ANA MONREAL PHD V25.49 Contraception Surveillance (repeat Rx) 05/19/2012 CHRIS HELM DO V25.49 Contraception Surveillance (repeat Rx) 05/19/2012 MADL PACKAGING SUPERVISOR, JENNY Dasilva V25.49 Contraception Surveillance (repeat Rx) 05/19/2012 CHACORTAL PACKAGING SUPERVISOR, JENNY Dasilva V25.49 Contraception Surveillance (repeat Rx) 05/19/2012 ANA MONREAL PHD V25.49 Contraception Surveillance (repeat Rx) 05/19/2012 ANA MONREAL PHD V25.49 Contraception Surveillance (repeat Rx) 05/19/2012 MADL PACKAGING SUPERVISOR, JENNY Brown V25.49 Contraception Surveillance (repeat Rx) 05/19/2012 MADL PACKAGING SUPERVISOR, JENNY Brown V25.49 Contraception Surveillance (repeat Rx) 05/19/2012 CHRIS HELM DO V25.49 Contraception Surveillance (repeat Rx) 07/14/2012 278.00 OBESITY 07/14/2012 462 ACUTE PHARYNGITIS 07/14/2012 V72.31 MONITOR TECHNICIAN EXAM, ROUTINE 07/14/2012 V76.10 BREAST CANCER SCREENING 07/14/2012 CHRIS HELM DO 278.00 OBESITY 07/14/2012 CHRIS HELM DO 462 Acute Pharyngitis 07/14/2012 CHRIS HELM DO V72.31 Pocket Closer Exam, Routine 07/14/2012 CHRIS HELM DO V76.10 Breast Cancer Screening 07/14/2012 278.00 OBESITY 07/14/2012 462 Acute Pharyngitis 07/14/2012 V72.31 Pocket Closer Exam, Routine 07/14/2012 V76.10 Breast Cancer Screening 07/14/2012 CHRIS HELM DO 278.00 OBESITY 07/14/2012 CHRIS HELM DO 462 Acute Pharyngitis 07/14/2012 HELM CHRIS CHENG V72.31 Pocket Closer Exam, Routine 07/14/2012 HELM DO CHRIS K V76.10 Breast Cancer Screening 07/14/2012 OTM TREVINO, TIMI 278.00 OBESITY 07/14/2012 TOM TREVINO, TIMI 46Cynthia Acute Pharyngitis 07/14/2012 TOM TREVINO, TIMI V72.31 Pocket Closer Exam, Routine 07/14/2012 TOM TREVINO, TIMI V76.10 Breast Cancer Screening 07/14/2012 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, CAMMY B 278.00 OBESITY 07/14/2012 [employer]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, CAMMY B 462 Acute Pharyngitis 07/14/2012 [employer]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, CAMMY B V72.31 Pocket Closer Exam, Routine 07/14/2012 Z[employer] HE[employer] C[employer]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, CAMMY B V76.10 Breast Cancer Screening 07/14/2012 TOM TREVINO, TIMI 278.00 OBESITY 07/14/2012 TIMI SANTOS MD Acute Pharyngitis 07/14/2012 TIMI SANTOS MD V72.31 Pocket Closer Exam, Routine 07/14/2012 TIMI SANTOS MD V76.10 Breast Cancer Screening 07/14/2012 TOM TREVINO, TIMI 278.00 OBESITY 07/14/2012 TOM TREVINO, TIMI 46Cynthia Acute Pharyngitis 07/14/2012 TOM TREVINO, TIMI V72.31 Pocket Closer Exam, Routine 07/14/2012 TOM TREVINO, TIMI V76.10 Breast Cancer Screening 07/14/2012 TOM TREVINO, TIMI 278.00 OBESITY 07/14/2012 TIMI SANTOS MD 46Cynthia Acute Pharyngitis 07/14/2012 TOM TREVINO, TIMI V72.31 Pocket Closer Exam, Routine 07/14/2012 TOM TREVINO, TIMI V76.10 Breast Cancer Screening 07/14/2012 TOM TREVINO, TIMI 278.00 OBESITY 07/14/2012 TIMI SANTOS MD 46Cynthia Acute Pharyngitis 07/14/2012 TOM TREVINO, TIMI V72.31 Pocket Closer Exam, Routine 07/14/2012 TIMI SANTOS MD V76.10 Breast Cancer Screening 07/14/2012 TOM TREVINO, TIMI 278.00 OBESITY 07/14/2012 HUERTER MD, TIMI 462 Acute Pharyngitis 07/14/2012 TOM TREVINO, TIMI V72.31 Pocket Closer Exam, Routine 07/14/2012 TOM TREVINO, TIMI V76.10 Breast Cancer Screening 07/14/2012 CHRIS HELM DO 278.00 OBESITY 07/14/2012 HELM DO CHRIS K 462 Acute Pharyngitis 07/14/2012 HELM CHRIS CHENG K V72.31 Pocket Closer Exam, Routine 07/14/2012 CHRIS HELM DO V76.10 Breast Cancer Screening 07/14/2012 DOMENIC CUELLAR APRN A 278.00 OBESITY 07/14/2012 DOMENIC CUELLAR APRN 462 Acute Pharyngitis 07/14/2012 DOMENIC CUELLAR APRN V72.31 Pocket Closer Exam, Routine 07/14/2012 DOMENIC CUELLAR APRN V76.10 Breast Cancer Screening 07/14/2012 CAMMY TAI LCPC 278.00 OBESITY 07/14/2012 CAMMY TAI LCPC 462 Acute Pharyngitis 07/14/2012 CAMMY TAI LCPC V72.31 Pocket Closer Exam, Routine 07/14/2012 CAMMY TAI LCPC V76.10 Breast Cancer Screening 07/14/2012 CHRIS HELM DO 278.00 OBESITY 07/14/2012 CHRIS HELM DO 462 Acute Pharyngitis 07/14/2012 CHRIS HELM DO V72.31 Pocket Closer Exam, Routine 07/14/2012 CHRIS HELM DO V76.10 Breast Cancer Screening 07/14/2012 RAH PHD, ANA Servin 278.00 OBESITY 07/14/2012 RAH SIFUENTES, ANA Servin 462 Acute Pharyngitis 07/14/2012 RAH SIFUENTES, ANA Servin V72.31 Pocket Closer Exam, Routine 07/14/2012 RAH SIFUENTES, ANA Servin V76.10 Breast Cancer Screening 07/14/2012 DOMENIC CUELLAR APRN 278.00 OBESITY 07/14/2012 DOMENIC CUELLAR APRN A 462 Acute Pharyngitis 07/14/2012 DOMENIC CUELLAR APRN V72.31 Pocket Closer Exam, Routine 07/14/2012 ALISA PACKAGING SUPERVISOR, DOMENIC A V76.10 Breast Cancer Screening 07/14/2012 MADL PACKAGING SUPERVISOR, JENNY L 278.00 OBESITY 07/14/2012 MADL PACKAGING SUPERVISOR, JENNY L 462 Acute Pharyngitis 07/14/2012 MADL PACKAGING SUPERVISOR, JENNY L V72.31 Pocket Closer Exam, Routine 07/14/2012 MADL PACKAGING SUPERVISOR, JENNY L V76.10 Breast Cancer Screening 07/14/2012 RAH PHD, ANA Servin 278.00 OBESITY 07/14/2012 RAH PHD, ANA A 462 Acute Pharyngitis 07/14/2012 RAH PHD, ANA Servin V72.31 Pocket Closer Exam, Routine 07/14/2012 RAH PHD, ANA Servin V76.10 Breast Cancer Screening 07/14/2012 RAH PHD, ANA Servin 278.00 OBESITY 07/14/2012 RAH PHD, ANA Servin 462 Acute Pharyngitis 07/14/2012 RAH PHD, ANA Servin V72.31 Pocket Closer Exam, Routine 07/14/2012 ANA MONREAL PHD V76.10 Breast Cancer Screening 07/14/2012 MADL PACKAGING SUPERVISOR, JENNY L 278.00 OBESITY 07/14/2012 MADL PACKAGING SUPERVISOR, JENNY L 462 Acute Pharyngitis 07/14/2012 MADL PACKAGING SUPERVISOR, JENNY L V72.31 Pocket Closer Exam, Routine 07/14/2012 MADL PACKAGING SUPERVISOR, JENNY L V76.10 Breast Cancer Screening 07/14/2012 JENSEN TREVINO, GWEN 278.00 OBESITY 07/14/2012 JENSEN TREVINO, GWEN 462 Acute Pharyngitis 07/14/2012 JENSEN TREVINO, GWEN V72.31 Pocket Closer Exam, Routine 07/14/2012 JENSEN TREVINO, GWEN V76.10 Breast Cancer Screening 07/14/2012 RAH SIFUENTES, ANA Servin 278.00 OBESITY 07/14/2012 ANA MONREAL PHD 462 Acute Pharyngitis 07/14/2012 ANA MONREAL PHD V72.31 Pocket Closer Exam, Routine 07/14/2012 NAA MONREAL PHD V76.10 Breast Cancer Screening 07/14/2012 RAH SIFUENTES, ANA Servin 278.00 OBESITY 07/14/2012 RAH SIFUENTES, ANA Servin 462 Acute Pharyngitis 07/14/2012 RAH PHD, ANA A V72.31 Pocket Closer Exam, Routine 07/14/2012 ANA MONREAL PHD V76.10 Breast Cancer Screening 07/14/2012 RAH PHD, ANA A 278.00 OBESITY 07/14/2012 RAH PHD, ANA A 462 Acute Pharyngitis 07/14/2012 RAH PHD, ANA A V72.31 Pocket Closer Exam, Routine 07/14/2012 RAH PHD, ANA Servin V76.10 Breast Cancer Screening 07/14/2012 MADL PACKAGING SUPERVISOR, JENNY L 278.00 OBESITY 07/14/2012 MADL PACKAGING SUPERVISOR, JENNY L 462 Acute Pharyngitis 07/14/2012 MADL PACKAGING SUPERVISOR, JENNY L V72.31 Pocket Closer Exam, Routine 07/14/2012 MADL PACKAGING SUPERVISOR, JENNY L V76.10 Breast Cancer Screening 07/14/2012 RAH SIFUENTES, ANA A 278.00 OBESITY 07/14/2012 RAH PHD, ANA Servin 462 Acute Pharyngitis 07/14/2012 RAH SIFUENTES, ANA A V72.31 Pocket Closer Exam, Routine 07/14/2012 ANA MONREAL PHD V76.10 Breast Cancer Screening 07/14/2012 RAH SIFUENTES, ANA A 278.00 OBESITY 07/14/2012 RAH PHD, ANA Servin 462 Acute Pharyngitis 07/14/2012 RAH SIFUENTES, ANA A V72.31 Pocket Closer Exam, Routine 07/14/2012 RAH SIFUENTES, ANA Servin V76.10 Breast Cancer Screening 07/14/2012 MADL PACKAGING SUPERVISOR, JENNY L 278.00 OBESITY 07/14/2012 MADL PACKAGING SUPERVISOR, JENNY L 462 Acute Pharyngitis 07/14/2012 MADL PACKAGING SUPERVISOR, JENNY L V72.31 Pocket Closer Exam, Routine 07/14/2012 MADL PACKAGING SUPERVISOR, JENNY L V76.10 Breast Cancer Screening 07/14/2012 RAH SIFUENTES, ANA A 278.00 OBESITY 07/14/2012 RAH SIFUENTES, ANA A 462 Acute Pharyngitis 07/14/2012 RAH PHD, ANA Servin V72.31 Pocket Closer Exam, Routine 07/14/2012 RAH PHD, ANA Servin V76.10 Breast Cancer Screening 07/14/2012 HELM DO, CHRIS K 278.00 OBESITY 07/14/2012 HELM DO, CHRIS K 462 Acute Pharyngitis 07/14/2012 HELM DO, CHRIS K V72.31 Pocket Closer Exam, Routine 07/14/2012 HELM DO, CHRIS K V76.10 Breast Cancer Screening 07/14/2012 MADL PACKAGING SUPERVISOR, JENNY L 278.00 OBESITY 07/14/2012 MADL PACKAGING SUPERVISOR, JENNY L 462 Acute Pharyngitis 07/14/2012 MADL PACKAGING SUPERVISOR, JENNY L V72.31 Pocket Closer Exam, Routine 07/14/2012 MADL PACKAGING SUPERVISOR, JENNY L V76.10 Breast Cancer Screening 07/14/2012 MADL PACKAGING SUPERVISOR, JENNY L 278.00 OBESITY 07/14/2012 MADL PACKAGING SUPERVISOR, JENNY L 462 Acute Pharyngitis 07/14/2012 MADL PACKAGING SUPERVISOR, JENNY L V72.31 Pocket Closer Exam, Routine 07/14/2012 MADL PACKAGING SUPERVISOR, JENNY L V76.10 Breast Cancer Screening 07/14/2012 RAH PHD, ANA Servin 278.00 OBESITY 07/14/2012 RAH PHD, ANA Servin 462 Acute Pharyngitis 07/14/2012 RAH SIFUENTES, ANA Servin V72.31 Pocket Closer Exam, Routine 07/14/2012 RAH SIFUENTES, ANA Servin V76.10 Breast Cancer Screening 07/14/2012 RAH PHD, ANA A 278.00 OBESITY 07/14/2012 RAH SIFUENTES, ANA Servin 462 Acute Pharyngitis 07/14/2012 RAH SIFUENTES, ANA Servin V72.31 Pocket Closer Exam, Routine 07/14/2012 RAH SIFUENTES, ANA Servin V76.10 Breast Cancer Screening 07/14/2012 MADL PACKAGING SUPERVISOR, JENNY L 278.00 OBESITY 07/14/2012 MADL PACKAGING SUPERVISOR, JENNY L 462 Acute Pharyngitis 07/14/2012 MADL PACKAGING SUPERVISOR, JENNY L V72.31 Pocket Closer Exam, Routine 07/14/2012 CHACORTAL PACKAGING SUPERVISOR, JENNY L V76.10 Breast Cancer Screening 07/14/2012 MADL PACKAGING SUPERVISOR, JENNY L 278.00 OBESITY 07/14/2012 MADL PACKAGING SUPERVISOR, JENNY L 462 Acute Pharyngitis 07/14/2012 MADL PACKAGING SUPERVISOR, JENNY L V72.31 Pocket Closer Exam, Routine 07/14/2012 MADL PACKAGING SUPERVISOR, JENNY L V76.10 Breast Cancer Screening 07/14/2012 MYNOR HELM DOA K 278.00 OBESITY 07/14/2012 MYNOR HELM DOA K 462 Acute Pharyngitis 07/14/2012 MYNOR HELM DOA K V72.31 Pocket Closer Exam, Routine 07/14/2012 HELM MYNOR CHENGA K V76.10 Breast Cancer Screening 08/31/2012 Ot 307.81 TENSION HEADACHE 08/31/2012 Ot 784.0 HEADACHE 11/05/2012 462 PHARYNGITIS ACUTE 11/05/2012 CHRIS HELM DO 462 PHARYNGITIS ACUTE 11/05/2012 TOM TREVINO, TIMI 462 PHARYNGITIS ACUTE 11/05/2012 CAMMY TAI LCPC 462 PHARYNGITIS ACUTE 11/05/2012 TOM TREVINO, TIMI 462 PHARYNGITIS ACUTE 11/05/2012 TOM TREVINO, TIMI 462 PHARYNGITIS ACUTE 11/05/2012 TOM TREVINO, TIMI 462 PHARYNGITIS ACUTE 11/05/2012 TOM TREVINO, TIMI 462 PHARYNGITIS ACUTE 11/05/2012 TOM TREVINO, TIMI 462 PHARYNGITIS ACUTE 11/05/2012 CHRIS HELM DO 462 PHARYNGITIS ACUTE 11/05/2012 ALISA DIEHL, DOMENIC A 462 PHARYNGITIS ACUTE 11/05/2012 CAMMY TAI LCPC 462 PHARYNGITIS ACUTE 11/05/2012 CHRIS HELM DO 462 PHARYNGITIS ACUTE 11/05/2012 RAH SIFUENTES, ANA Servin 462 PHARYNGITIS ACUTE 11/05/2012 ALISA PACKAGING SUPERVISOR, DOMENIC A 462 PHARYNGITIS ACUTE 11/05/2012 MADL PACKAGING SUPERVISOR, JENNY L 462 PHARYNGITIS ACUTE 11/05/2012 RAH PHD, ANA A 462 PHARYNGITIS ACUTE 11/05/2012 RAH PHD, ANA A 462 PHARYNGITIS ACUTE 11/05/2012 MADL PACKAGING SUPERVISOR, JENNY L 462 PHARYNGITIS ACUTE 11/05/2012 JENSEN TREVINO, GWEN 462 PHARYNGITIS ACUTE 11/05/2012 RAH PHD, ANA A 462 PHARYNGITIS ACUTE 11/05/2012 RAH PHD, ANA A 462 PHARYNGITIS ACUTE 11/05/2012 RAH PHD, ANA A 462 PHARYNGITIS ACUTE 11/05/2012 MADL PACKAGING SUPERVISOR, JENNY L 462 PHARYNGITIS ACUTE 11/05/2012 RAH PHD, ANA A 462 PHARYNGITIS ACUTE 11/05/2012 RAH PHD, ANA A 462 PHARYNGITIS ACUTE 11/05/2012 MADL PACKAGING SUPERVISOR, JENNY L 462 PHARYNGITIS ACUTE 11/05/2012 RAH PHD, ANA A 462 PHARYNGITIS ACUTE 11/05/2012 HELM DO, CHRIS K 462 PHARYNGITIS ACUTE 11/05/2012 MADL PACKAGING SUPERVISOR, JENNY L 462 PHARYNGITIS ACUTE 11/05/2012 MADL PACKAGING SUPERVISOR, JENNY L 462 PHARYNGITIS ACUTE 11/05/2012 RAH PHD, ANA A 462 PHARYNGITIS ACUTE 11/05/2012 RAH PHD, ANA A 462 PHARYNGITIS ACUTE 11/05/2012 MADL PACKAGING SUPERVISOR, JENNY L 462 PHARYNGITIS ACUTE 11/05/2012 MADL PACKAGING SUPERVISOR, JENNY L 462 PHARYNGITIS ACUTE 11/05/2012 HELM DO, CHRIS K 462 PHARYNGITIS ACUTE 06/30/2013 AMOR BISHOP PACKAGING SUPERVISOR Ot 686.9 LOCAL SKIN INFECTION NOS 06/30/2013 AMOR BISHOP PACKAGING SUPERVISOR Ot 704.8 HAIR DISEASES NEC 06/30/2013 AMOR BISHOP PACKAGING SUPERVISOR Ot 782.1 NONSPECIF SKIN ERUPT NEC 07/19/2013 LETICIA SAXENA Ot 354.0 CARPAL TUNNEL SYNDROME 07/19/2013 LETICIA SAXENA Ot 729.5 PAIN IN LIMB 07/28/2013 TIMI SANTOS MD 250.00 DIABETES MELLITUS WITHOUT MENTION OF COMPLICATION TYPE II OR UNSPECIFIED TYPE NOT STATED UNCONTROLLED 07/28/2013 CAMMY TAI LCPC 250.00 DIABETES MELLITUS WITHOUT MENTION OF COMPLICATION TYPE II OR UNSPECIFIED TYPE NOT STATED UNCONTROLLED 07/28/2013 TIMI SANTOS MD 250.00 DIABETES MELLITUS WITHOUT MENTION OF COMPLICATION TYPE II OR UNSPECIFIED TYPE NOT STATED UNCONTROLLED 07/28/2013 TIMI SANTOS MD 250.00 DIABETES MELLITUS WITHOUT MENTION OF COMPLICATION TYPE II OR UNSPECIFIED TYPE NOT STATED UNCONTROLLED 07/28/2013 TIMI SANTOS MD 250.00 DIABETES MELLITUS WITHOUT MENTION OF COMPLICATION TYPE II OR UNSPECIFIED TYPE NOT STATED UNCONTROLLED 07/28/2013 TIMI SANTOS MD 250.00 DIABETES MELLITUS WITHOUT MENTION OF COMPLICATION TYPE II OR UNSPECIFIED TYPE NOT STATED UNCONTROLLED 07/28/2013 TIMI SANTOS MD 250.00 DIABETES MELLITUS WITHOUT MENTION OF COMPLICATION TYPE II OR UNSPECIFIED TYPE NOT STATED UNCONTROLLED 07/28/2013 ALICJA DO, CHRIS K 250.00 DIABETES MELLITUS WITHOUT MENTION OF COMPLICATION TYPE II OR UNSPECIFIED TYPE NOT STATED UNCONTROLLED 07/28/2013 ALISA PACKAGING SUPERVISOR, DOMENIC A 250.00 DIABETES MELLITUS WITHOUT MENTION OF COMPLICATION TYPE II OR UNSPECIFIED TYPE NOT STATED UNCONTROLLED 07/28/2013 CAMMY TAI LCPC B 250.00 DIABETES MELLITUS WITHOUT MENTION OF COMPLICATION TYPE II OR UNSPECIFIED TYPE NOT STATED UNCONTROLLED 07/28/2013 ALICJA DO, CHRIS K 250.00 DIABETES MELLITUS WITHOUT MENTION OF COMPLICATION TYPE II OR UNSPECIFIED TYPE NOT STATED UNCONTROLLED 07/28/2013 ANA MONREAL PHD A 250.00 DIABETES MELLITUS WITHOUT MENTION OF COMPLICATION TYPE II OR UNSPECIFIED TYPE NOT STATED UNCONTROLLED 07/28/2013 ALISA QUIROZN, DOMENIC A 250.00 DIABETES MELLITUS WITHOUT MENTION OF COMPLICATION TYPE II OR UNSPECIFIED TYPE NOT STATED UNCONTROLLED 07/28/2013 JENNY WOLF APRN 250.00 DIABETES MELLITUS WITHOUT MENTION OF COMPLICATION TYPE II OR UNSPECIFIED TYPE NOT STATED UNCONTROLLED 07/28/2013 ANA MONREAL PHD A 250.00 DIABETES MELLITUS WITHOUT MENTION OF COMPLICATION TYPE II OR UNSPECIFIED TYPE NOT STATED UNCONTROLLED 07/28/2013 ANA MONREAL PHD A 250.00 DIABETES MELLITUS WITHOUT MENTION OF COMPLICATION TYPE II OR UNSPECIFIED TYPE NOT STATED UNCONTROLLED 07/28/2013 MADL PACKAGING SUPERVISOR, JENNY L 250.00 DIABETES MELLITUS WITHOUT MENTION OF COMPLICATION TYPE II OR UNSPECIFIED TYPE NOT STATED UNCONTROLLED 07/28/2013 GWEN STYLES MD 250.00 DIABETES MELLITUS WITHOUT MENTION OF COMPLICATION TYPE II OR UNSPECIFIED TYPE NOT STATED UNCONTROLLED 07/28/2013 RAH SIFUENTES, ANA A 250.00 DIABETES MELLITUS WITHOUT MENTION OF COMPLICATION TYPE II OR UNSPECIFIED TYPE NOT STATED UNCONTROLLED 07/28/2013 RAH PHD, ANA A 250.00 DIABETES MELLITUS WITHOUT MENTION OF COMPLICATION TYPE II OR UNSPECIFIED TYPE NOT STATED UNCONTROLLED 07/28/2013 RAH SIFUENTES, ANA A 250.00 DIABETES MELLITUS WITHOUT MENTION OF COMPLICATION TYPE II OR UNSPECIFIED TYPE NOT STATED UNCONTROLLED 07/28/2013 MADL PACKAGING SUPERVISOR, JENNY L 250.00 DIABETES MELLITUS WITHOUT MENTION OF COMPLICATION TYPE II OR UNSPECIFIED TYPE NOT STATED UNCONTROLLED 07/28/2013 RAH SIFUENTES, ANA A 250.00 DIABETES MELLITUS WITHOUT MENTION OF COMPLICATION TYPE II OR UNSPECIFIED TYPE NOT STATED UNCONTROLLED 07/28/2013 RAH SIFUENTES, ANA A 250.00 DIABETES MELLITUS WITHOUT MENTION OF COMPLICATION TYPE II OR UNSPECIFIED TYPE NOT STATED UNCONTROLLED 07/28/2013 MADL PACKAGING SUPERVISOR, JENNY L 250.00 DIABETES MELLITUS WITHOUT MENTION OF COMPLICATION TYPE II OR UNSPECIFIED TYPE NOT STATED UNCONTROLLED 07/28/2013 RAH SIFUENTES, ANA A 250.00 DIABETES MELLITUS WITHOUT MENTION OF COMPLICATION TYPE II OR UNSPECIFIED TYPE NOT STATED UNCONTROLLED 07/28/2013 CHRIS HELM DO 250.00 DIABETES MELLITUS WITHOUT MENTION OF COMPLICATION TYPE II OR UNSPECIFIED TYPE NOT STATED UNCONTROLLED 07/28/2013 MADL PACKAGING SUPERVISOR, JENNY L 250.00 DIABETES MELLITUS WITHOUT MENTION OF COMPLICATION TYPE II OR UNSPECIFIED TYPE NOT STATED UNCONTROLLED 07/28/2013 MADL PACKAGING SUPERVISOR, JENNY L 250.00 DIABETES MELLITUS WITHOUT MENTION OF COMPLICATION TYPE II OR UNSPECIFIED TYPE NOT STATED UNCONTROLLED 07/28/2013 RAH SIFUENTES, ANA A 250.00 DIABETES MELLITUS WITHOUT MENTION OF COMPLICATION TYPE II OR UNSPECIFIED TYPE NOT STATED UNCONTROLLED 07/28/2013 RAH SIFUENTES, ANA A 250.00 DIABETES MELLITUS WITHOUT MENTION OF COMPLICATION TYPE II OR UNSPECIFIED TYPE NOT STATED UNCONTROLLED 07/28/2013 MADL PACKAGING SUPERVISOR, JENNY L 250.00 DIABETES MELLITUS WITHOUT MENTION OF COMPLICATION TYPE II OR UNSPECIFIED TYPE NOT STATED UNCONTROLLED 07/28/2013 MADL PACKAGING SUPERVISOR, JENNY L 250.00 DIABETES MELLITUS WITHOUT MENTION OF COMPLICATION TYPE II OR UNSPECIFIED TYPE NOT STATED UNCONTROLLED 07/28/2013 ALICJA CHENG CHRIS K 250.00 DIABETES MELLITUS WITHOUT MENTION OF COMPLICATION TYPE II OR UNSPECIFIED TYPE NOT STATED UNCONTROLLED 07/29/2013 TIMI SANTOS MD 356.9 NEUROPATHY 07/29/2013 ZAIRE SWIFT, CAMMY B 356.9 NEUROPATHY 07/29/2013 TOM TREVINO, TIMI 356.9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 NRG Automated urine sediment leukocyte count by microscopy (number/high power field ) [HPF] NRG Bacteria detection in urine sediment by light microscopy MODERATE NRG Squamous epithelial cells detection in urine sediment by light microscopy 5-10 NRG Crystals detection in urine sediment by light microscopy NONE NRG Casts detection in urine sediment by light microscopy NONE NRG Mucus detection in urine sediment by light microscopy NEGATIVE NRG Complete urinalysis with reflex to culture YES NRG Bacterial urine culture - 05/27/17 13:26 Bacterial urine culture [id number] NRG COLONY COUNT >100,000/ML NRG FTX;REPORTABLE SENSITIVITY REPORTED 05/27/17 9:00 NRG Bacterial susceptibility panel - 05/27/17 13:26 Gentamicin susceptibility test by minimum inhibitory concentration < = NRG Trimethoprim/sulfamethoxazole susceptibility test by minimum inhibitoryconcentration <= NRG Ampicillin susceptibility test by minimum inhibitory concentration > = NRG Tobramycin susceptibility test by minimum inhibitory concentration < = NRG Cefazolin susceptibility test by minimum inhibitory concentration < = NRG Ceftriaxone susceptibility test by minimum inhibitory concentration <= NRG Ampicillin/sulbactam susceptibility test by minimum inhibitory concentration 4 NRG Piperacillin/tazobactam susceptibility test by minimum inhibitory concentration <= NRG Ciprofloxacin susceptibility test by minimum inhibitory concentration <= NRG Meropenem susceptibility test by minimum inhibitory concentration < = NRG Nitrofurantoin susceptibility test by minimum inhibitory concentration <= NRG Aztreonam susceptibility test by minimum inhibitory concentration < = NRG Extended spectrum beta lactamase (ESBL) producing bacteria susceptibility test by minimum inhibitory concentration - NRG Complete blood count (CBC) with automated white blood cell (WBC) differential - 05/27/17 14:07 Blood leukocytes automated count (number/volume) 13.1 10*3/uL 4.3-11.0 Blood erythrocytes automated count (number/volume) 3.63 10*6/uL 4.35-5.85 Venous blood hemoglobin measurement (mass/volume) 11.0 g/dL 11.5-16.0 Blood hematocrit (volume fraction) 33 % 35-52 Automated erythrocyte mean corpuscular volume 92 [foz_us] 80-99 Automated erythrocyte mean corpuscular hemoglobin (mass per erythrocyte) 30 pg 25-34 Automated erythrocyte mean corpuscular hemoglobin concentration measurement ( mass/volume) 33 g/dL 32-36 Automated erythrocyte distribution width ratio 12.7 % 10.0-14.5 Automated blood platelet count (count/volume) 257 10*3/uL 130-400 Automated blood platelet mean volume measurement 10.5 [foz_us] 7.4-10.4 Automated blood neutrophils/100 leukocytes 83 % 42-75 Automated blood lymphocytes/100 leukocytes 11 % 12-44 Blood monocytes/100 leukocytes 5 % 0-12 Automated blood eosinophils/100 leukocytes 1 % 0-10 Automated blood basophils/100 leukocytes 0 % 0-10 Blood neutrophils automated count (number/volume) 10.9 10*3 1.8-7.8 Blood lymphocytes automated count (number/volume) 1.4 10*3 1.0-4.0 Blood monocytes automated count (number/volume) 0.7 10*3 0.0-1.0 Automated eosinophil count 0.1 10*3/uL 0.0-0.3 Automated blood basophil count (count/volume) 0.0 10*3/uL 0.0-0.1 Blood lactic acid measurement (moles/volume) - 05/27/17 14:07 Blood lactic acid measurement (moles/volume) 0.80 mmol/L 0.50-2.00 Erythrocyte sedimentation rate by westergren method - 05/27/17 14:07 Erythrocyte sedimentation rate by westergren method 71 mm 0-20 Comprehensive metabolic panel - 05/27/17 14:07 Serum or plasma sodium measurement (moles/volume) 135 mmol/L 135-145 Serum or plasma potassium measurement (moles/volume) 4.1 mmol/L 3.6-5.0 Serum or plasma chloride measurement (moles/volume) 106 mmol/L 98-107 Carbon dioxide 22 mmol/L 21-32 Serum or plasma anion gap determination (moles/volume) 7 mmol/L 5-14 Serum or plasma urea nitrogen measurement (mass/volume) 12 mg/dL 7-18 Serum or plasma creatinine measurement (mass/volume) 1.15 mg/dL 0.60-1.30 Serum or plasma urea nitrogen/creatinine mass ratio 10 NRG Serum or plasma creatinine measurement with calculation of estimated glomerular filtration rate 53 NRG Serum or plasma glucose measurement (mass/volume) 198 mg/dL 70-105 Serum or plasma calcium measurement (mass/volume) 9.2 mg/dL 8.5-10.1 Serum or plasma total bilirubin measurement (mass/volume) 0.4 mg/dL 0.1-1.0 Serum or plasma alkaline phosphatase measurement (enzymatic activity/volume) 73 U/L 40-136 Serum or plasma aspartate aminotransferase measurement (enzymatic activity/ volume) 18 U/L 5-34 Serum or plasma alanine aminotransferase measurement (enzymatic activity/volume ) 28 U/L 0-55 Serum or plasma protein measurement (mass/volume) 7.2 g/dL 6.4-8.2 Serum or plasma albumin measurement (mass/volume) 3.9 g/dL 3.2-4.5 Serum or plasma C reactive protein measurement (mass/volume) - 05/27/17 14:07 Serum or plasma C reactive protein measurement (mass/volume) 19.35 mg/dL 0.00-0.50 Bacterial blood culture - 05/27/17 14:07 Bacterial blood culture NG NRG Bacterial blood culture - 05/27/17 14:43 Bacterial blood culture NG NRG Cerebrospinal fluid cell count - 05/27/17 16:12 Cerebrospinal fluid appearance description CLEAR NRG Cerebrospinal fluid color identification COLORLESS NRG Cerebrospinal fluid leukocytes count (number/volume) 0 % 0-5 Cerebrospinal fluid erythrocytes count (number/volume) 0 % 0-0 Cerebrospinal fluid cell count on specimen from last tube collected 4 NRG Cerebrospinal fluid glucose measurement (mass/volume) - 05/27/17 16:12 Cerebrospinal fluid glucose measurement (mass/volume) 101 mg/dL 50-80 Cerebrospinal fluid protein measurement (mass/volume) - 05/27/17 16:12 Cerebrospinal fluid protein measurement (mass/volume) 19 mg/dL 15-40 Gram stain microscopy - 05/27/17 16:12 GRAM STAIN RESULT FEW WBC'S, NO BACTERIA OBSERVED NRG Bacterial cerebrospinal fluid culture - 05/27/17 16:12 Bacterial cerebrospinal fluid culture NG NRG Virus identification by culture - 05/27/17 16:12 Virus identification by culture FOOTNOTE NR CBC with Auto Diff - 05/31/17 12:59 Baso% 0.40 % 0.00-2.50 Eos 0.1 K/uL 0.0-0.7 Eos% 0.7 % 0.0-7.0 Hct 35.9 % 36.0-46.0 Hgb 11.7 g/dL 13.0-15.0 Lym 3.43 K/uL 0.60-3.40 Lym% 25.0 % 10.0-50.0 MCH 30.1 pg 27.0-31.0 MCHC 32.6 g/dL 32.0-36.0 MCV 92.3 fL 80.0-97.0 Thomas% 6.2 % 0.0-12.0 MPV 9.9 fL 7.4-10.0 Rima% 67.7 % 37.0-80.0 Plt 377 K/uL 150-400 RBC 3.89 M/uL 3.60-5.00 RDW 11.9 % 11.6-14.8 WBC 13.70 K/uL 5.00-10.00 Rima 9.28 K/uL 2.00-6.90 Thomas 0.9 K/uL 0.0-0.9 Baso 0.1 K/uL 0.0-0.2 Complete blood count (CBC) with automated white blood cell (WBC) differential - 06/28/17 18:35 Blood leukocytes automated count (number/volume) 21.2 10*3/uL 4.3-11.0 Blood erythrocytes automated count (number/volume) 3.37 10*6/uL 4.35-5.85 Venous blood hemoglobin measurement (mass/volume) 10.0 g/dL 11.5-16.0 Blood hematocrit (volume fraction) 30 % 35-52 Automated erythrocyte mean corpuscular volume 89 [foz_us] 80-99 Automated erythrocyte mean corpuscular hemoglobin (mass per erythrocyte) 30 pg 25-34 Automated erythrocyte mean corpuscular hemoglobin concentration measurement ( mass/volume) 33 g/dL 32-36 Automated erythrocyte distribution width ratio 13.1 % 10.0-14.5 Automated blood platelet count (count/volume) 271 10*3/uL 130-400 Automated blood platelet mean volume measurement 10.5 [foz_us] 7.4-10.4 Automated blood neutrophils/100 leukocytes 91 % 42-75 Automated blood lymphocytes/100 leukocytes 4 % 12-44 Blood monocytes/100 leukocytes 5 % 0-12 Automated blood eosinophils/100 leukocytes 0 % 0-10 Automated blood basophils/100 leukocytes 0 % 0-10 Blood neutrophils automated count (number/volume) 19.3 10*3 1.8-7.8 Blood lymphocytes automated count (number/volume) 0.8 10*3 1.0-4.0 Blood monocytes automated count (number/volume) 1.0 10*3 0.0-1.0 Automated eosinophil count 0.1 10*3/uL 0.0-0.3 Automated blood basophil count (count/volume) 0.0 10*3/uL 0.0-0.1 Blood manual differential performed detection - 06/28/17 18:35 Blood monocytes/100 leukocytes 0 % NRG Manual blood segmented neutrophils/100 leukocytes 91 % NRG Blood band neutrophils/100 leukocytes 3 % NRG Manual blood lymphocytes/100 leukocytes 6 % NRG Manual eosinophils/100 leukocytes in nose 0 % NRG Manual blood basophils/100 leukocytes 0 % NRG Blood erythrocyte morphology finding identification NORMAL NRG Blood lactic acid measurement (moles/volume) - 06/28/17 18:35 Blood lactic acid measurement (moles/volume) 1.32 mmol/L 0.50-2.00 Comprehensive metabolic panel - 06/28/17 18:35 Serum or plasma sodium measurement (moles/volume) 131 mmol/L 135-145 Serum or plasma potassium measurement (moles/volume) 4.2 mmol/L 3.6-5.0 Serum or plasma chloride measurement (moles/volume) 101 mmol/L 98-107 Carbon dioxide 18 mmol/L 21-32 Serum or plasma anion gap determination (moles/volume) 12 mmol/L 5-14 Serum or plasma urea nitrogen measurement (mass/volume) 23 mg/dL 7-18 Serum or plasma creatinine measurement (mass/volume) 2.00 mg/dL 0.60-1.30 Serum or plasma urea nitrogen/creatinine mass ratio 12 NRG Serum or plasma creatinine measurement with calculation of estimated glomerular filtration rate 28 NRG Serum or plasma glucose measurement (mass/volume) 479 mg/dL 70-105 Serum or plasma calcium measurement (mass/volume) 10.5 mg/dL 8.5-10.1 Serum or plasma total bilirubin measurement (mass/volume) 0.8 mg/dL 0.1-1.0 Serum or plasma alkaline phosphatase measurement (enzymatic activity/volume) 166 U/L 40-136 Serum or plasma aspartate aminotransferase measurement (enzymatic activity/ volume) 15 U/L 5-34 Serum or plasma alanine aminotransferase measurement (enzymatic activity/volume ) 21 U/L 0-55 Serum or plasma protein measurement (mass/volume) 7.2 g/dL 6.4-8.2 Serum or plasma albumin measurement (mass/volume) 3.3 g/dL 3.2-4.5 Magnesium - 06/28/17 18:35 Magnesium 1.6 mg/dL 1.8-2.4 Lipase - 06/28/17 18:35 Lipase 14 U/L 8-78 Complete urinalysis with reflex to culture - 06/28/17 19:15 Urine color determination YELLOW NRG Urine clarity determination CLEAR NRG Urine pH measurement by test strip 6 5-9 Specific gravity of urine by test strip 1.015 1.016- 1.022 Urine protein assay by test strip, semi-quantitative 3+ NEGATIVE Urine glucose detection by automated test strip 4+ NEGATIVE Erythrocytes detection in urine sediment by light microscopy 4+ NEGATIVE Urine ketones detection by automated test strip NEGATIVE NEGATIVE Urine nitrite detection by test strip NEGATIVE NEGATIVE Urine total bilirubin detection by test strip NEGATIVE NEGATIVE Urine urobilinogen measurement by automated test strip (mass/volume) NORMAL NORMAL Urine leukocyte esterase detection by dipstick 1+ NEGATIVE Automated urine sediment erythrocyte count by microscopy (number/high power field) [HPF] NRG Automated urine sediment leukocyte count by microscopy (number/high power field ) [HPF] NRG Bacteria detection in urine sediment by light microscopy FEW NRG Squamous epithelial cells detection in urine sediment by light microscopy 2-5 NRG Crystals detection in urine sediment by light microscopy NONE NRG Casts detection in urine sediment by light microscopy NONE NRG Mucus detection in urine sediment by light microscopy NEGATIVE NRG Complete urinalysis with reflex to culture YES NRG Urine drug screening test - 06/28/17 19:15 Urine phencyclidine detection by screening method NEGATIVE NEGATIVE Urine benzodiazepines detection by screening method NEGATIVE NEGATIVE Urine cocaine detection NEGATIVE NEGATIVE Urine amphetamines detection by screening method NEGATIVE NEGATIVE Urine methamphetamine detection by screening method POSITIVE NEGATIVE Urine cannabinoids detection by screening method NEGATIVE NEGATIVE Urine opiates detection by screening method POSITIVE NEGATIVE Urine barbiturates detection POSITIVE NEGATIVE Screening urine tricyclic antidepressants detection NEGATIVE NEGATIVE Urine methadone detection by screening method NEGATIVE NEGATIVE Urine oxycodone detection NEGATIVE NEGATIVE Urine propoxyphene detection NEGATIVE NEGATIVE Bacterial urine culture - 06/28/17 19:15 Bacterial urine culture SEE [facility] COLONY COUNT . NRG FTX;REPORTABLE SENSITIVITY REPORTED 06/30 06:48 [facility] Bacterial susceptibility panel - 06/28/17 19:15 Gentamicin susceptibility test by minimum inhibitory concentration < = NRG Trimethoprim/sulfamethoxazole susceptibility test by minimum inhibitoryconcentration <= NRG Ampicillin susceptibility test by minimum inhibitory concentration > = NRG Tobramycin susceptibility test by minimum inhibitory concentration < = NRG Cefazolin susceptibility test by minimum inhibitory concentration < = NRG Ceftriaxone susceptibility test by minimum inhibitory concentration <= NRG Ampicillin/sulbactam susceptibility test by minimum inhibitory concentration 4 NRG Piperacillin/tazobactam susceptibility test by minimum inhibitory concentration <= NRG Ciprofloxacin susceptibility test by minimum inhibitory concentration <= NRG Meropenem susceptibility test by minimum inhibitory concentration < = NRG Nitrofurantoin susceptibility test by minimum inhibitory concentration <= NRG Aztreonam susceptibility test by minimum inhibitory concentration < = NRG Extended spectrum beta lactamase (ESBL) producing bacteria susceptibility test by minimum inhibitory concentration - NRG Cefepime susceptibility test by minimum inhibitory concentration <= NRG Bacterial blood culture - 06/28/17 19:45 FREE TEXT EXTERNAL SENSITIVITY REPORTED 06/30 06:47 NRG QUANTITY OF GROWTH . NRG Bacterial blood culture SEE [facility] Bacterial susceptibility panel - 06/28/17 19:45 Gentamicin susceptibility test by minimum inhibitory concentration < = NRG Trimethoprim/sulfamethoxazole susceptibility test by minimum inhibitoryconcentration <= NRG Ampicillin susceptibility test by minimum inhibitory concentration > = NRG Tobramycin susceptibility test by minimum inhibitory concentration < = NRG Cefazolin susceptibility test by minimum inhibitory concentration < = NRG Ceftriaxone susceptibility test by minimum inhibitory concentration <= NRG Ampicillin/sulbactam susceptibility test by minimum inhibitory concentration 4 NRG Piperacillin/tazobactam susceptibility test by minimum inhibitory concentration <= NRG Ciprofloxacin susceptibility test by minimum inhibitory concentration <= NRG Meropenem susceptibility test by minimum inhibitory concentration < = NRG Aztreonam susceptibility test by minimum inhibitory concentration < = NRG Extended spectrum beta lactamase (ESBL) producing bacteria susceptibility test by minimum inhibitory concentration - NR Cefepime susceptibility test by minimum inhibitory concentration <= NRG Bacterial blood culture - 06/28/17 20:35 Bacterial blood culture NG NR Complete blood count (CBC) with automated white blood cell (WBC) differential - 06/29/17 05:53 Blood leukocytes automated count (number/volume) 14.0 10*3/uL 4.3-11.0 Blood erythrocytes automated count (number/volume) 3.02 10*6/uL 4.35-5.85 Venous blood hemoglobin measurement (mass/volume) 9.0 g/dL 11.5-16.0 Blood hematocrit (volume fraction) 28 % 35-52 Automated erythrocyte mean corpuscular volume 91 [foz_us] 80-99 Automated erythrocyte mean corpuscular hemoglobin (mass per erythrocyte) 30 pg 25-34 Automated erythrocyte mean corpuscular hemoglobin concentration measurement ( mass/volume) 33 g/dL 32-36 Automated erythrocyte distribution width ratio 13.2 % 10.0-14.5 Automated blood platelet count (count/volume) 232 10*3/uL 130-400 Automated blood platelet mean volume measurement 10.6 [foz_us] 7.4-10.4 Automated blood neutrophils/100 leukocytes 91 % 42-75 Automated blood lymphocytes/100 leukocytes 4 % 12-44 Blood monocytes/100 leukocytes 4 % 0-12 Automated blood eosinophils/100 leukocytes 1 % 0-10 Automated blood basophils/100 leukocytes 0 % 0-10 Blood neutrophils automated count (number/volume) 12.7 10*3 1.8-7.8 Blood lymphocytes automated count (number/volume) 0.6 10*3 1.0-4.0 Blood monocytes automated count (number/volume) 0.6 10*3 0.0-1.0 Automated eosinophil count 0.1 10*3/uL 0.0-0.3 Automated blood basophil count (count/volume) 0.0 10*3/uL 0.0-0.1 Whole blood basic metabolic panel - 06/29/17 05:53 Serum or plasma sodium measurement (moles/volume) 133 mmol/L 135-145 Serum or plasma potassium measurement (moles/volume) 4.2 mmol/L 3.6-5.0 Serum or plasma chloride measurement (moles/volume) 101 mmol/L 98-107 Carbon dioxide 22 mmol/L 21-32 Serum or plasma anion gap determination (moles/volume) 10 mmol/L 5-14 Serum or plasma urea nitrogen measurement (mass/volume) 25 mg/dL 7-18 Serum or plasma creatinine measurement (mass/volume) 2.40 mg/dL 0.60-1.30 Serum or plasma urea nitrogen/creatinine mass ratio 10 NRG Serum or plasma creatinine measurement with calculation of estimated glomerular filtration rate 23 NRG Serum or plasma glucose measurement (mass/volume) 591 mg/dL 70-105 Serum or plasma calcium measurement (mass/volume) 9.5 mg/dL 8.5-10.1 Hemoglobin A1c - 06/29/17 05:53 Hemoglobin A1c 8.3 % 4.5-6.2 Capillary blood glucose measurement by glucometer (mass/volume) - 06/29/17 05: 54 Capillary blood glucose measurement by glucometer (mass/volume) 518 mg/dL 70-110 Capillary blood glucose measurement by glucometer (mass/volume) - 06/29/17 11: 19 Capillary blood glucose measurement by glucometer (mass/volume) 414 mg/dL 70-110 Whole blood basic metabolic panel - 06/29/17 14:00 Serum or plasma sodium measurement (moles/volume) 133 mmol/L 135-145 Serum or plasma potassium measurement (moles/volume) 4.4 mmol/L 3.6-5.0 Serum or plasma chloride measurement (moles/volume) 108 mmol/L 98-107 Carbon dioxide 17 mmol/L 21-32 Serum or plasma anion gap determination (moles/volume) 8 mmol/L 5-14 Serum or plasma urea nitrogen measurement (mass/volume) 25 mg/dL 7-18 Serum or plasma creatinine measurement (mass/volume) 2.38 mg/dL 0.60-1.30 Serum or plasma urea nitrogen/creatinine mass ratio 11 NRG Serum or plasma creatinine measurement with calculation of estimated glomerular filtration rate 23 NRG Serum or plasma glucose measurement (mass/volume) 417 mg/dL 70-105 Serum or plasma calcium measurement (mass/volume) 9.2 mg/dL 8.5-10.1 Capillary blood glucose measurement by glucometer (mass/volume) - 06/29/17 15: 36 Capillary blood glucose measurement by glucometer (mass/volume) 383 mg/dL 70-110 Complete blood count (CBC) with automated white blood cell (WBC) differential - 06/29/17 20:30 Blood leukocytes automated count (number/volume) 15.3 10*3/uL 4.3-11.0 Blood erythrocytes automated count (number/volume) 2.76 10*6/uL 4.35-5.85 Venous blood hemoglobin measurement (mass/volume) 8.2 g/dL 11.5-16.0 Blood hematocrit (volume fraction) 25 % 35-52 Automated erythrocyte mean corpuscular volume 92 [foz_us] 80-99 Automated erythrocyte mean corpuscular hemoglobin (mass per erythrocyte) 30 pg 25-34 Automated erythrocyte mean corpuscular hemoglobin concentration measurement ( mass/volume) 32 g/dL 32-36 Automated erythrocyte distribution width ratio 13.6 % 10.0-14.5 Automated blood platelet count (count/volume) 210 10*3/uL 130-400 Automated blood platelet mean volume measurement 10.4 [foz_us] 7.4-10.4 Automated blood neutrophils/100 leukocytes 88 % 42-75 Automated blood lymphocytes/100 leukocytes 6 % 12-44 Blood monocytes/100 leukocytes 5 % 0-12 Automated blood eosinophils/100 leukocytes 1 % 0-10 Automated blood basophils/100 leukocytes 0 % 0-10 Blood neutrophils automated count (number/volume) 13.6 10*3 1.8-7.8 Blood lymphocytes automated count (number/volume) 1.0 10*3 1.0-4.0 Blood monocytes automated count (number/volume) 0.7 10*3 0.0-1.0 Automated eosinophil count 0.1 10*3/uL 0.0-0.3 Automated blood basophil count (count/volume) 0.0 10*3/uL 0.0-0.1 Blood lactic acid measurement (moles/volume) - 06/29/17 20:30 Blood lactic acid measurement (moles/volume) 0.91 mmol/L 0.50-2.00 Comprehensive metabolic panel - 06/29/17 20:30 Serum or plasma sodium measurement (moles/volume) 137 mmol/L 135-145 Serum or plasma potassium measurement (moles/volume) 3.9 mmol/L 3.6-5.0 Serum or plasma chloride measurement (moles/volume) 110 mmol/L 98-107 Carbon dioxide 17 mmol/L 21-32 Serum or plasma anion gap determination (moles/volume) 10 mmol/L 5-14 Serum or plasma urea nitrogen measurement (mass/volume) 25 mg/dL 7-18 Serum or plasma creatinine measurement (mass/volume) 2.33 mg/dL 0.60-1.30 Serum or plasma urea nitrogen/creatinine mass ratio 11 NRG Serum or plasma creatinine measurement with calculation of estimated glomerular filtration rate 24 NRG Serum or plasma glucose measurement (mass/volume) 217 mg/dL 70-105 Serum or plasma calcium measurement (mass/volume) 8.8 mg/dL 8.5-10.1 Serum or plasma total bilirubin measurement (mass/volume) 1.0 mg/dL 0.1-1.0 Serum or plasma alkaline phosphatase measurement (enzymatic activity/volume) 144 U/L 40-136 Serum or plasma aspartate aminotransferase measurement (enzymatic activity/ volume) 17 U/L 5-34 Serum or plasma alanine aminotransferase measurement (enzymatic activity/volume ) 19 U/L 0-55 Serum or plasma protein measurement (mass/volume) 5.8 g/dL 6.4-8.2 Serum or plasma albumin measurement (mass/volume) 2.7 g/dL 3.2-4.5 Capillary blood glucose measurement by glucometer (mass/volume) - 06/29/17 21: 08 Capillary blood glucose measurement by glucometer (mass/volume) 243 mg/dL 70-110 Capillary blood glucose measurement by glucometer (mass/volume) - 06/30/17 05: 33 Capillary blood glucose measurement by glucometer (mass/volume) 172 mg/dL 70-110 Automated blood complete blood count (hemogram) panel - 06/30/17 07:25 Blood leukocytes automated count (number/volume) 15.1 10*3/uL 4.3-11.0 Blood erythrocytes automated count (number/volume) 2.66 10*6/uL 4.35-5.85 Venous blood hemoglobin measurement (mass/volume) 7.9 g/dL 11.5-16.0 Blood hematocrit (volume fraction) 25 % 35-52 Automated erythrocyte mean corpuscular volume 93 [foz_us] 80-99 Automated erythrocyte mean corpuscular hemoglobin (mass per erythrocyte) 30 pg 25-34 Automated erythrocyte mean corpuscular hemoglobin concentration measurement ( mass/volume) 32 g/dL 32-36 Automated erythrocyte distribution width ratio 14.1 % 10.0-14.5 Automated blood platelet count (count/volume) 223 10*3/uL 130-400 Automated blood platelet mean volume measurement 10.3 [foz_us] 7.4-10.4 Comprehensive metabolic panel - 06/30/17 07:25 Serum or plasma sodium measurement (moles/volume) 138 mmol/L 135-145 Serum or plasma potassium measurement (moles/volume) 4.2 mmol/L 3.6-5.0 Serum or plasma chloride measurement (moles/volume) 114 mmol/L 98-107 Carbon dioxide 12 mmol/L 21-32 Serum or plasma anion gap determination (moles/volume) 12 mmol/L 5-14 Serum or plasma urea nitrogen measurement (mass/volume) 24 mg/dL 7-18 Serum or plasma creatinine measurement (mass/volume) 2.44 mg/dL 0.60-1.30 Serum or plasma urea nitrogen/creatinine mass ratio 10 NRG Serum or plasma creatinine measurement with calculation of estimated glomerular filtration rate 22 NRG Serum or plasma glucose measurement (mass/volume) 220 mg/dL 70-105 Serum or plasma calcium measurement (mass/volume) 8.2 mg/dL 8.5-10.1 Serum or plasma total bilirubin measurement (mass/volume) 1.1 mg/dL 0.1-1.0 Serum or plasma alkaline phosphatase measurement (enzymatic activity/volume) 153 U/L 40-136 Serum or plasma aspartate aminotransferase measurement (enzymatic activity/ volume) 24 U/L 5-34 Serum or plasma alanine aminotransferase measurement (enzymatic activity/volume ) 19 U/L 0-55 Serum or plasma protein measurement (mass/volume) 5.6 g/dL 6.4-8.2 Serum or plasma albumin measurement (mass/volume) 2.5 g/dL 3.2-4.5 Capillary blood glucose measurement by glucometer (mass/volume) - 06/30/17 11: 52 Capillary blood glucose measurement by glucometer (mass/volume) 218 mg/dL 70-110 Whole blood basic metabolic panel - 06/30/17 14:31 Serum or plasma sodium measurement (moles/volume) 137 mmol/L 135-145 Serum or plasma potassium measurement (moles/volume) 4.2 mmol/L 3.6-5.0 Serum or plasma chloride measurement (moles/volume) 111 mmol/L 98-107 Carbon dioxide 15 mmol/L 21-32 Serum or plasma anion gap determination (moles/volume) 11 mmol/L 5-14 Serum or plasma urea nitrogen measurement (mass/volume) 28 mg/dL 7-18 Serum or plasma creatinine measurement (mass/volume) 2.76 mg/dL 0.60-1.30 Serum or plasma urea nitrogen/creatinine mass ratio 10 NRG Serum or plasma creatinine measurement with calculation of estimated glomerular filtration rate 19 NRG Serum or plasma glucose measurement (mass/volume) 246 mg/dL 70-105 Serum or plasma calcium measurement (mass/volume) 8.4 mg/dL 8.5-10.1 Capillary blood glucose measurement by glucometer (mass/volume) - 06/30/17 16: 09 Capillary blood glucose measurement by glucometer (mass/volume) 206 mg/dL 70-110 Whole blood basic metabolic panel - 08/12/17 14:50 Serum or plasma sodium measurement (moles/volume) 138 mmol/L 135-145 Serum or plasma potassium measurement (moles/volume) 4.5 mmol/L 3.6-5.0 Serum or plasma chloride measurement (moles/volume) 109 mmol/L 98-107 Carbon dioxide 22 mmol/L 21-32 Serum or plasma anion gap determination (moles/volume) 7 mmol/L 5-14 Serum or plasma urea nitrogen measurement (mass/volume) 20 mg/dL 7-18 Serum or plasma creatinine measurement (mass/volume) 1.56 mg/dL 0.60-1.30 Serum or plasma urea nitrogen/creatinine mass ratio 13 NRG Serum or plasma creatinine measurement with calculation of estimated glomerular filtration rate 38 NRG Serum or plasma glucose measurement (mass/volume) 161 mg/dL 70-105 Serum or plasma calcium measurement (mass/volume) 10.0 mg/dL 8.5-10.1 Serum or plasma uric acid measurement (mass/volume) - 08/12/17 14:50 Serum or plasma uric acid measurement (mass/volume) 4.8 mg/dL 2.6-7.2 Serum or plasma phosphate measurement (mass/volume) - 08/12/17 14:50 Serum or plasma phosphate measurement (mass/volume) 3.2 mg/dL 2.3-4.7 Serum or plasma alkaline phosphatase measurement (enzymatic activity/volume) - 08/12/17 14:50 Serum or plasma alkaline phosphatase measurement (enzymatic activity/volume) 74 U/L 40-136 Serum or plasma intact pararthyroid hormone measurement (mass/volume) - 14:50 Serum or plasma intact parathyroid hormone measurement (mass/volume) 6.0 pg/mL 10.0-65.0 Bio-intact parathyroid hormone (PTH) measurement with calcium 10.2 % 8.5-10.5 24 hour urine phosphate measurement (mass/time) - 08/14/17 13:21 Urine phosphate measurement (mass/volume) 28 mg/dL NRG Urine collection time duration 24 h NRG Creatinine ur 24hr 1.7 g 0.8-1.8 24 hour urine creatinine measurement (mass/volume) 58 mg/dL NRG Urine volume measurement 3000 mL NRG 24 hour urine phosphate measurement (mass/volume) 840 mg 340-1000 24 hour urine uric acid measurement (mass/time) - 08/14/17 13:21 Urine creatinine measurement (mass/volume) 57 mg/dL NRG Creatinine ur 24hr 1.7 g 0.8-1.8 Urine volume measurement 3000 mL NRG Quantitative urine uric acid measurement 32 mg/dL NRG 24 hour urine uric acid measurement (mass/time) 960 H 250-750 2 hour urine uric acid measurement (mass/time) 24 h NRG Uric acid measurement in peritoneal dialysis fluid (mass/volume) 3000 mL NRG 24 hour urine calcium measurement - 08/14/17 13:21 Urine creatinine measurement (mass/volume) 57 mg/dL NRG Timed urine calcium measurement (mass/volume) 8.0 mg/dL NRG 24 hour urine specimen volume measurement 3000 mL NRG Urine collection time duration 24 h NRG Creatinine ur 24hr 1.7 g 0.8-1.8 24 hour urine calcium measurement 240 mg 50-300 Urine pH measurement - 08/14/17 13:21 Urine pH measurement 6.0 4.5-9.0 24 hour urine citrate measurement (mass/volume) - 08/14/17 13:21 Urine creatinine measurement (mass/volume) 58 % NRG Creatinine ur 24hr 1380 % 700-1600 Urine volume measurement 3000 mL NRG Citrate [Mass/volume] in Serum or Plasma 135 % NRG 24 hour urine citrate measurement (mass/volume) 293 % >= 150 24 hour urine magnesium measurement - 08/14/17 13:21 24 hour urine specimen volume measurement 3000 mL NRG 24 hour urine creatinine measurement (mass/volume) 1380 mg 700-1600 24 hour urine magnesium measurement 117 mg 12-199 24 hour urine magnesium/creatinine mass ratio 46 mg/dL NRG MAGNESIUM U 3.9 mg/dL NRG CMP - 01/01/18 12:52 GLUCOSE 282 mg/dL 65-99 UREA NITROGEN (BUN) 15 mg/dL 7-25 CREATININE 1.15 mg/dL 0.50-1.10 eGFR NON-AFR. MALTESE 61 mL/min/1.73m2 > OR=60 eGFR 71 mL/min/1.73m2 > OR=60 BUN/CREATININE RATIO 13 (calc) 6-22 SODIUM 135 mmol/L 135-146 POTASSIUM 5.0 mmol/L 3.5-5.3 CHLORIDE 102 mmol/L 98-110 CARBON DIOXIDE 22 mmol/L 20-31 CALCIUM 10.3 mg/dL 8.6-10.2 PROTEIN, TOTAL 7.9 g/dL 6.1-8.1 ALBUMIN 4.8 g/dL 3.6-5.1 GLOBULIN 3.1 g/dL (calc) 1.9-3.7 ALBUMIN/GLOBULIN RATIO 1.5 (calc) 1.0-2.5 BILIRUBIN, TOTAL 0.5 mg/dL 0.2-1.2 ALKALINE PHOSPHATASE 84 U/L 33-115 AST 33 U/L 10-30 ALT 49 U/L 6-29 - PANEL (PROFILE 1) - 06/24/18 17:52 Prescribed Drug 1 Clonazepam NRG Creatinine 210.7 mg/dL > or=20.0 pH 6.36 4.5 - 9.0 Oxidant NEGATIVE mcg/mL <200 Amphetamines NEGATIVE ng/mL <500 medMATCH Amphetamines CONSISTENT NRG Benzodiazepines NEGATIVE CONFIRMED ng/mL <100 Marijuana Metabolite NEGATIVE ng/mL <20 medMATCH Marijuana Metab CONSISTENT NRG Cocaine Metabolite NEGATIVE ng/mL <150 medMATCH Cocaine Metab CONSISTENT NRG Opiates POSITIVE ng/mL <100 Oxycodone NEGATIVE ng/mL <100 medMATCH Oxycodone CONSISTENT NRG COMMENT NRG Alphahydroxyalprazolam NEGATIVE ng/mL <25 medMATCH aOH alprazolam CONSISTENT NRG Alphahydroxymidazolam NEGATIVE ng/mL <50 medMATCH aOH midazolam CONSISTENT NRG Alphahydroxytriazolam NEGATIVE ng/mL <50 medMATCH aOH triazolam CONSISTENT NRG Aminoclonazepam NEGATIVE ng/mL <25 medMATCH Aminoclonazepam INCONSISTENT NRG Hydroxyethylflurazepam NEGATIVE ng/mL <50 medMATCH OH,Et flurazepam CONSISTENT NRG Lorazepam NEGATIVE ng/mL <50 medMATCH Lorazepam CONSISTENT NRG Nordiazepam NEGATIVE ng/mL <50 medMATCH Nordiazepam CONSISTENT NRG Oxazepam NEGATIVE ng/mL <50 medMATCH Oxazepam CONSISTENT NRG Temazepam NEGATIVE ng/mL <50 medMATCH Temazepam CONSISTENT NRG Codeine NEGATIVE ng/mL <50 medMATCH Codeine CONSISTENT NRG Hydrocodone 877 ng/mL <50 medMATCH Hydrocodone CONSISTENT NRG Hydromorphone 441 ng/mL <50 medMATCH Hydromorphone CONSISTENT NRG Morphine 61383 ng/mL <50 medMATCH Morphine CONSISTENT NRG Norhydrocodone 1362 ng/mL <50 medMATCH Norhydrocodone CONSISTENT NRG Prescribed Drug 2 Lyrica(TM) NRG Prescribed Drug 3 Hydrocodone NRG Prescribed Drug 4 MS Contin(TM) NRG Barbiturates NEGATIVE CONFIRMED ng/mL <300 Methadone Metabolite NEGATIVE ng/mL <100 medMATCH Methadone Metab CONSISTENT NRG Phencyclidine NEGATIVE ng/mL <25 medMATCH Phencyclidine CONSISTENT NRG Amobarbital NEGATIVE ng/mL <100 medMATCH Amobarbital CONSISTENT NRG Butalbital INTERFERENCE ng/mL <100 Pentobarbital NEGATIVE ng/mL <100 medMATCH Pentobarbital CONSISTENT NRG Phenobarbital NEGATIVE ng/mL <100 medMATCH Phenobarbital CONSISTENT NRG Secobarbital NEGATIVE ng/mL <100 medMATCH Secobarbital CONSISTENT NRG SUREPATH PAP AND HPV mRNA E6/E7 - 07/23/18 14:59 CLINICAL INFORMATION: NRG LMP: IRREGULAR NRG PREV. PAP: 2017- WNL NRG PREV. BX: NRG SOURCE: Cervix NRG STATEMENT OF ADEQUACY: NRG INTERPRETATION/RESULT: NRG HOB GRINDER: NRG HPV mRNA E6/E7, SUREPATH VIAL Not Detected NOT DETECTED COMMENT NRG CULTURE, GENITAL - 07/23/18 14:59 CULTURE, GENITAL SEE NOTE NRG Encounters ACCT No. Visit Date/Time Discharge Status Pt. Type Provider Facility Loc./Unit Complaint [id number] 01/31/2015 13:18:00 01/31/2015 23:59:59 CLS Outpatient CHRIS HELM DO [id number] 01/31/2015 10:27:00 01/31/2015 23:59:59 CLS Outpatient MADL PACKAGING SUPERVISORJENNY [id number] 01/12/2015 15:54:00 01/12/2015 23:59:59 CLS Outpatient ANA MONREAL PHD [id number] 12/30/2014 14:24:00 12/30/2014 23:59:59 CLS Outpatient MADL PACKAGING SUPERVISORJENNY [id number] 12/06/2014 13:58:00 12/06/2014 23:59:59 CLS Outpatient ANA MONREAL PHD [id number] 11/29/2014 09:51:00 11/29/2014 23:59:59 CLS Outpatient MADL PACKAGING SUPERVISORJENNY [id number] 11/01/2014 12:55:00 11/01/2014 23:59:59 CLS Outpatient MADL PACKAGING SUPERVISORJENNY Brown [id number] 10/07/2014 14:58:00 10/07/2014 23:59:59 CLS Outpatient ANA MONREAL PHD [id number] 10/04/2014 13:35:00 10/04/2014 23:59:59 CLS Outpatient CHRIS HELM DO [id number] 10/04/2014 13:35:00 10/04/2014 23:59:59 CLS Outpatient MADL PACKAGING SUPERVISORJENNY Rodriguez Brown [id number] 09/30/2014 15:55:00 09/30/2014 23:59:59 CLS Outpatient ANA MONREAL PHD [id number] 09/01/2014 12:42:00 09/01/2014 23:59:59 CLS Outpatient ANA MONREAL PHD [id number] 08/31/2014 14:21:00 08/31/2014 23:59:59 CLS Outpatient MADL PACKAGING SUPERVISORJENNY Brown [id number] 08/23/2014 16:02:00 08/23/2014 23:59:59 CLS Outpatient ANA MONREAL PHD [id number] 08/12/2014 10:46:00 08/12/2014 23:59:59 CLS Outpatient ANA MONREAL PHD [id number] 08/05/2014 08:53:00 08/05/2014 23:59:59 CLS Outpatient MIQUELANA DAVID PHD [id number] 07/30/2014 08:52:00 07/30/2014 23:59:59 CLS Outpatient GWEN STYLES MD [id number] 07/14/2014 09:22:00 07/14/2014 23:59:59 CLS Outpatient JENNY WOLF APRN Brown [id number] 07/12/2014 13:55:00 07/12/2014 23:59:59 CLS Outpatient ANA MONREAL PHD [id number] 07/07/2014 08:47:00 07/07/2014 23:59:59 CLS Outpatient ANA MONREAL PHD [id number] 07/01/2014 10:57:00 07/01/2014 23:59:59 CLS Outpatient ALISA QUIROZDOMENIC Rodriguez [id number] 06/29/2014 09:55:00 06/29/2014 23:59:59 CLS Outpatient ANA MONREAL PHD [id number] 06/16/2014 14:07:00 06/16/2014 23:59:59 CLS Outpatient LUCIANO QUIROZNJENNY [id number] 06/16/2014 14:07:00 06/16/2014 23:59:59 CLS Outpatient CHRIS HELM DO [id number] 06/07/2014 12:42:00 06/07/2014 23:59:59 CLS Outpatient CAMMY TAI LCPC [id number] 05/24/2014 17:18:00 05/24/2014 23:59:59 CLS Outpatient ALISA QUIROZN DOMENIC Servin [id number] 05/03/2014 17:52:00 05/03/2014 23:59:59 CLS Outpatient CHRIS HELM DO [id number] 02/25/2014 15:18:00 02/25/2014 23:59:59 CLS Outpatient TIMI SANOTS MD [id number] 12/11/2013 14:55:00 12/11/2013 23:59:59 CLS Outpatient TIMI SANTOS MD [id number] 12/11/2013 14:55:00 12/11/2013 23:59:59 CLS Outpatient TIMI SANTOS MD [id number] 11/17/2013 15:20:00 11/17/2013 23:59:59 CLS Outpatient TIMI SANTOS MD [id number] 07/31/2013 10:46:00 07/31/2013 23:59:59 CLS Outpatient CAMMY TAI LCPC [id number] 07/28/2013 15:27:00 07/28/2013 23:59:59 CLS Outpatient TIMI SANTOS MD [id number] 07/28/2013 15:27:00 07/28/2013 23:59:59 CLS Outpatient TIMI SANTOS MD [id number] 11/05/2012 10:40:00 11/05/2012 23:59:59 CLS Outpatient CHRIS HELM DO [id number] 11/05/2012 10:40:00 11/05/2012 23:59:59 CLS Outpatient [id number] 10/08/2012 10:37:00 10/08/2012 23:59:59 [place] [id number] 07/14/2012 11:03:00 07/14/2012 23:59:59 CLS Outpatient [id number] 11/11/2017 00:14:00 11/11/2017 23:59:59 CLS Preadmit Leidy HOUSE MD Via [facility] LAB N20.1 [id number] 08/14/2017 12:10:00 11/10/2017 00:01:00 DIS Outpatient Leidy HOUSE MD [facility] LAB N20.1 [id number] 08/26/2017 11:51:00 08/26/2017 23:59:59 CLS Outpatient Leidy HOUSE MD [facility] RAD CALCULUS OF URETER N20.1 [id number] 06/28/2017 20:38:00 06/30/2017 19:55:00 DIS Inpatient BLANCHE TREVINO, GENE Rodriguez [facility] 4TH JANEE,UTI,PYELONEPHRITIS,5 MM L KIDNEY STONE [id number] 05/27/2017 12:24:00 05/27/2017 18:52:00 DIS Emergency ALISE HATFIELD MD [facility] ER FEVER/BODYACHES [id number] 02/08/2017 11:53:00 02/08/2017 23:59:59 CLS Outpatient JENNY WOLF [facility] RAD ABNORMAL BERNARDINO [id number] 11/23/2016 07:56:00 11/23/2016 23:59:59 CLS Outpatient JUSTIN KING MD [facility] CARD DISC DISORDER [id number] 11/12/2016 13:51:00 11/12/2016 23:59:59 CLS Outpatient MADL, JENNY L ELECTRIC METER INSTALLER HELPER [facility] RAD BILAT COLD FEET, PAIN [id number] 09/24/2016 09:54:00 10/17/2016 15:52:00 DIS Outpatient JUSTIN KING MD [facility] REHAB LUMBAGO [id number] 07/20/2016 08:15:00 07/20/2016 23:59:59 CLS Outpatient GWEN STYLES MD [facility] CARD SOB,PALPITATIONS,HTN, DIABETES MELLITUS TYPE II [id number] 05/01/2016 17:01:00 05/01/2016 19:31:00 DIS Emergency AMOR BISHOP PACKAGING SUPERVISOR [facility] ER MIGRAINE [id number] 04/27/2016 13:52:00 04/27/2016 23:59:59 CLS Outpatient MADL, JENNY L ELECTRIC METER INSTALLER HELPER [facility] CARD HEART PALPITATIONS [id number] 02/24/2016 19:44:00 02/25/2016 06:25:00 DIS Outpatient MADL, JENNY L ELECTRIC METER INSTALLER HELPER [facility] SLEEP SNORING,DAYTIME SLEEPINESS [id number] 02/21/2016 11:56:00 02/21/2016 14:45:00 DIS Outpatient KHURRAM DELGADO DO [facility] SDC BLOOD IN STOOL,REFLEX [id number] 02/17/2016 05:41:00 02/17/2016 12:06:00 DIS Outpatient KHURRAM DELGADO DO [facility] PREOP BLOOD IN STOOL,REFLEX [id number] 12/23/2015 05:43:00 12/23/2015 23:59:59 CLS Outpatient KHURRAM DELGADO DO [facility] PREOP N/V/ GERD [id number] 12/03/2015 03:16:00 12/03/2015 06:48:00 DIS Emergency ARLEEN COPELAND MD [facility] ER VOMITING,RT HIP PAIN( FELL OFF COUCH) [id number] 09/18/2015 19:44:00 09/18/2015 22:40:00 DIS Emergency LETICIA SAXENA [facility] ER DEHYDRATED/LOSS OF HANNA [id number] 06/10/2015 10:43:00 06/10/2015 12:14:00 DIS Outpatient JUSTIN KING MD [facility] CARD DDD LUMBAR [id number] 06/07/2015 21:01:00 06/07/2015 21:40:00 DIS Emergency AMOR BISHOP PACKAGING SUPERVISOR [facility] ER RASH,ITCHING [id number] 05/27/2015 13:25:00 05/27/2015 14:42:00 DIS Emergency AMOR BISHOP PACKAGING SUPERVISOR [facility] ER RIGHT HAND PAIN/INFECTION [id number] 05/04/2015 15:00:00 05/04/2015 23:59:59 CLS Outpatient JUSTIN KING MD [facility] RAD DDD LUMBAR [id number] 03/02/2015 21:45:00 03/02/2015 23:05:00 DIS Emergency LETICIA SAXENA [facility] ER IRRITATION ON NERVE BURNING SITE [id number] 02/28/2015 11:53:00 02/28/2015 13:43:00 DIS Outpatient JUSTIN KING MD [facility] CARD LUMBAR SPONDOLOYSIS [id number] 02/21/2015 11:57:00 02/21/2015 14:07:00 DIS Outpatient JUSTIN KING MD Via [facility] CARD LUMBAR SPONDOLOYSIS [id number] 02/17/2015 22:32:00 02/18/2015 00:00:00 DIS Emergency AGUSTÍN HARTLEY DO [facility] ER LOWER BACK PAIN [id number] 11/29/2014 10:00:00 11/29/2014 23:59:59 CLS Preadmit EDWIN THOMPSON [facility] CARD CP, PALPITATIONS [id number] 08/30/2014 10:31:00 11/28/2014 00:01:00 DIS Outpatient EDWIN THOMPSON Via [facility] CARD CP, PALPITATIONS [id number] 09/03/2014 08:49:00 09/03/2014 09:50:00 DIS Outpatient JUSTIN KING MD [facility] LUMBAR SPONDYLOSIS [id number] 08/30/2014 10:23:00 08/30/2014 23:59:59 CLS Outpatient EDWIN THOMPSON [facility] CP, PALPITATIONS [id number] 08/27/2014 08:27:00 08/27/2014 10:01:00 DIS Outpatient JUSTIN KING MD [facility] LUMBAR SPONDYLOSIS [id number] 06/30/2014 10:01:00 06/30/2014 23:59:59 CLS Outpatient CHACORTALJENNYP [facility] PALPATATIONS [id number] 05/17/2014 13:05:00 05/17/2014 13:59:00 DIS Outpatient JUSTIN KING MD [facility] LUMBAR SPONDOLOSYSIS [id number] 05/10/2014 12:08:00 05/10/2014 13:06:00 DIS Outpatient JUSTIN KING MD [facility] LUMBAR SPONDOLOYSIS [id number] 05/05/2014 01:33:00 05/05/2014 02:24:00 DIS Emergency ALISE HATFIELD MD [facility] ER LEFT EYE PAIN [id number] 01/29/2014 07:49:00 01/29/2014 09:03:00 DIS Outpatient JUSTIN KING MD [facility] LUMBAR SPONDYLOSIS [id number] 01/08/2014 06:55:00 01/08/2014 07:49:00 DIS Outpatient JUSTIN KING MD [facility] LUMBAR SPONDYLOSIS [id number] 11/13/2013 08:14:00 11/13/2013 10:08:00 DIS Emergency JAIME MUSTAFA DO [facility] ER BACK PAIN [id number] 09/07/2013 17:24:00 09/07/2013 19:59:00 DIS Emergency JAIME MUSTAFA DO [facility] ER MULTIPLE COMPLAINTS [id number] 08/23/2013 17:15:00 08/23/2013 18:18:00 DIS Emergency ARLEEN COPELAND MD [facility] ER LAC ON FINGER [id number] 07/19/2013 14:56:00 07/19/2013 18:06:00 DIS Emergency LETICIA SAXENA Via [facility] ER RIGHT HAND AND ARM PAIN [id number] 06/30/2013 21:04:00 06/30/2013 21:59:00 DIS Emergency AMOR BISHOP APRN [facility] ER L ARM RASH [id number] 06/10/2015 10:42:00 Document Registration [id number] 06/10/2015 10:42:00 Document Registration [id number] 06/10/2015 10:42:00 Document Registration [id number] 08/31/2012 15:19:00 Document Registration [id number] 01/02/2012 08:02:00 Document Registration [id number] 10/20/2011 03:07:00 Document Registration [id number] 10/19/2011 08:08:00 Document Registration [id number] 12/30/2010 23:31:00 Document Registration [id number] 01/27/2018 14:20:00 01/27/2018 23:59:59 CLS Outpatient MADL AMIRA DIEHLNYGareth Dasilva [facility] [id number] 07/23/2018 13:20:00 Document Registration [id number] 06/24/2018 14:20:00 Document Registration [id number] 01/01/2018 12:00:00 Document Registration [id number] 06/10/2015 10:44:14 ACT Document Registration [id number] 05/31/2017 12:54:00 05/31/2017 14:35:00 DIS Outpatient Amor Bishop [id number] 05/31/2017 13:00:40 Document Registration [id number] 01/03/2017 09:10:00 Document Registration
[2018-10-08 21:01] LABS: ALBUMIN 4.4 GM/DL (3.2-4.5); BILIRUBIN,TOTAL 0.5 MG/DL (0.1-1.0); CREATININE SERUM 1.25 MG/DL (0.60-1.30); POTASSIUM 4.4 MMOL/L (3.6-5.0)
[2018-10-08] MEDS ORDERED: NS IV 1000 ML 1,000 ML IV ONE (21:12)
[2018-10-08] MEDS ORDERED: SUCR1ORA5 PO (22:05)
[2018-10-08] MEDS ORDERED: ONDA4TAB11 SL (22:05)
[2018-10-08] MEDS ORDERED: OMEP20TA7 PO (22:05)
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
[2018-10-08] MEDS ORDERED: RX-ONDANSETRON 4 MG ODT (ZOFRAN) PPK #4 SL STA (22:06)
[2018-10-08] MEDS ORDERED: RX-TRAMADOL 50 MG (ULTRAM) TAB PPK#4 PO STA (22:06)
[2018-10-08 22:25] VITALS: BP 135/72
== END 2018-10-08 22:26 | disposition home or self-care (01) ==
LOC: EDUNIT# 19:32 → ER 19:33
DX: D72.829 Elevated white blood cell count, unspecified (principal); R10.13 Epigastric pain; R11.0 Nausea; K21.9 Gastro-esophageal reflux disease without esophagitis; F17.210 Nicotine dependence, cigarettes, uncomplicated; J45.909 Unspecified asthma, uncomplicated; I10 Essential (primary) hypertension; G43.909 Migraine, unspecified, not intractable, without status migrainosus; M06.9 Rheumatoid arthritis, unspecified; E11.40 Type 2 diabetes mellitus with diabetic neuropathy, unspecified; F41.9 Anxiety disorder, unspecified; F32.9 Major depressive disorder, single episode, unspecified; F43.10 Post-traumatic stress disorder, unspecified; Z87.442 Personal history of urinary calculi; Z87.440 Personal history of urinary (tract) infections; Z87.19 Personal history of other diseases of the digestive system; Z88.1 Allergy status to other antibiotic agents; Z91.013 Allergy to seafood
CPT/HCPCS: 36415; 80053; 81000; 83690; 84703; 85025; 96361; 96374; 96375

== ENCOUNTER 2018-11-27 20:48 | Inpatient (IN) | payer MEDICAID ==
[~2018-11-27] VITALS: Ht 160 cm; Wt 96.2 kg
[~2018-11-27 20:48] MED LIST changes: +METH100V6 IJ; +ONDA4TAB11 SL; +SUCR1ORA5 PO
--- OUTSIDE RECORDS SUMMARY | 2018-11-27 20:56 | XMS REPORT ---
Author Author CHONG TORRES [facility] Address [address] [place] [address] Care Team Providers Care Assistant Credit Manager Name Role Phone YULIYA TORRESTA Unavailable PROBLEMS Type Condition ICD9-CM Code GQR11-BX Code Onset Dates Condition Status SNOMED Code Problem Edema of both feet R60.0 Active 465843483 Problem Chronic migraine G43.709 Active 10391454 Problem Mixed hyperlipidemia E78.2 Active 938193932 Problem Benzodiazepine dependence F13.20 Active 419256260 Problem Narcotic dependence F11.20 Active 20579213 Problem Type 2 diabetes mellitus with diabetic neuropathy, unspecified E11.40 Active 16364543 Problem nursing home 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 Z79.4 Active 381440279 Problem Generalized anxiety disorder F41.1 Active 04293865 Problem Chronic pain disorder G89.4 Active 700215736 Problem Asthma J45.909 Active 669529489 Problem Spinal stenosis, lumbar region M48.06 Active 28098444 Problem Anxiety F41.9 Active 70404594 Problem Radiculopathy of lumbar region M54.16 Active 014041836 Problem Chronic pain G89.29 Active 60753528 Problem Gastroesophageal reflux disease without esophagitis K21.9 Active 744522851 Problem Bulging lumbar disc M51.26 Active 393017177 Problem HSV (herpes simplex virus) infection B00.9 Active 92185616 Problem Essential hypertension I10 Active 99346548 Problem Tobacco abuse Z72.0 Active 95881614 ALLERGIES No Information ENCOUNTERS Encounter Location Date Diagnosis [facility] [address] [facility] [id number] [address] Sep, [facility] [address] [id number] [address] Aug, [facility] [address] [facility] [id number], [place] [address] Jul, Well woman exam with routine gynecological exam Z01.419 and Screening for STD (sexually transmitted disease) Z11.3 [place] [address] 0[address]44- 7604 Jul, [facility] [address] 24948- 8268 Jul, Anxiety F41.9 ; Chronic pain disorder G89.4 ; Benzodiazepine dependence F13.20 ; Narcotic dependence F11.20 and Suicidal thoughts R45.851 [place] [address] [place] [id number] [place] [address] 93902- 3802 Jul, [place] [address] 40207- 4283 Jun, Chronic migraine G43.709 [place] [address] 40140- 9224 Jun, [place] [address] 67567- 7836 07 Jun, 2018 [place] [address] 79847- 2953 07 Jun, 2018 [place] [address] 36759- 8982 06 Jun, 2018 Asthma J45.909 [place] [address] 14749- 4808 04 Jun, 2018 Type 2 diabetes mellitus with diabetic neuropathy, unspecified E11.40 ; Chronic pain disorder G89.4 and Generalized anxiety disorder F41.1 [place] [address] [address] [id number] [place] [address] 85465- 2426 May, Chronic pain G89.29 and Anxiety F41.9 [facility] [address] 14744- 0077 May, [facility] [address] 34575- 5491 May, Encounter for Depo-Provera contraception Z30.42 [facility] [address] [id number] [place] [address] 02385- 8099 May, [facility] [id number] [place] [address] 04858- 5016 Apr, Chronic pain G89.29 [facility] [id number] [place] [address] 70280- 6509 Apr, Chronic pain G89.29 and Anxiety F41.9 [facility] [address] 85350- 7119 Mar, HSV (herpes simplex virus) infection B00.9 ; Anxiety F41.9 and Chronic pain G89.29 [facility] [id number] [place] [address] 80937- 2856 Mar, [place] [address] 40330- 7184 Mar, Chronic pain G89.29 [facility] [address] 91405- 3346 February, Chronic pain G89.29 [place] [address] [id number] [place] [address] 44039- 7308 Jan, Chronic pain G89.29 [place] [id number] [place] [address] 83775- 6106 Jan, nursing home 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 Z79.4 [facility] [id number] [place] [address] 95655- 5692 Jan, Encounter for Depo-Provera contraception Z30.42 [facility] [id number] [place] [address] 01397- 9361 Jan, [facility] [id number] [place] [address] 66476- 2808 Jan, Chronic pain G89.29 and Anxiety F41.9 [facility] [address] [place] [address] [place] [address] 8287 03 Jan, 2018 [facility] [id number] [place] [address] 80031- 3193 14 Dec, 2017 [facility] [id number] [place] [address] 25010- 0038 14 Dec, 2017 Gastroesophageal reflux disease without esophagitis K21.9 and Anxiety F41.9 [place] [id number] [place] [address] 08098- 5721 14 Dec, 2017 Essential hypertension I10 ; Mixed hyperlipidemia E78.2 ; Type 2 diabetes mellitus with diabetic neuropathy, unspecified E11.40 ; 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 ; Chronic pain G89.29 ; HSV (herpes simplex virus) infection B00.9 ; Anxiety F41.9 and Gastroesophageal reflux disease without esophagitis K21.9 [place] [id number] [place] [address] 68906- 4516 07 Dec, 2017 Chronic pain G89.29 and Chronic migraine G43.709 [place] [id number] [place] [address] 32473- 7348 Nov, [place] [id number] [place] [address] 36060- 6665 08 Nov, 2017 Essential hypertension I10 and Chronic pain G89.29 [place] [id number] [place] [address] 11058- 3639 05 Nov, 2017 Chronic pain G89.29 ; Essential hypertension I10 and Type 2 diabetes mellitus without complication E11.9 [place] [id number] [place] [address] 48669- 1216 Oct, Chronic pain G89.29 [place] [id number] [place] [address] 00585- 3604 Oct, [facility] [address] [place] [address] 39853- 2461 Sep, Type 2 diabetes mellitus without complication E11.9 ; Essential hypertension I10 ; nursing home (current) use of insulin Z79.4 ; Chronic migraine G43.709 ; Chronic pain G89.29 and Acute non-recurrent maxillary sinusitis J01.00 [place] [id number] [place] [address] 27286- 3902 19 Sep, 2017 Encounter for Depo-Provera contraception Z30.42 [place] [address] [id number] [place] [address] 66714- 0020 13 Sep, 2017 Chronic pain G89.29 and Radiculopathy of lumbar region M54.16 [place] [address] [id number] [place] [address] 18067- 8787 Sep, [place] [address] 35392- 5749 Sep, [place] [address] 84845- 7020 Aug, Type 2 diabetes mellitus without complication E11.9 [place] [id number] [place] [address] 88270- 7671 Aug, [place] [address] 31685- 0128 Aug, Radiculopathy of lumbar region M54.16 and Chronic pain G89.29 [place] [id number] [place] [address] 59543- 8190 Aug, Type 2 diabetes mellitus without complication E11.9 [place] [id number] [place] [address] 05352- 6439 Aug, Type 2 diabetes mellitus without complication E11.9 [place] [id number] [place] [address] 54771- 3734 Jul, Type 2 diabetes mellitus without complication E11.9 [place] [id number] [place] [address] 52111- 9307 Jul, [place] [address] 03964- 0116 Jul, Chronic pain G89.29 [facility] [address] [id number] [address] 3341 Jul, [facility] [id number] [place] [address] 49073- 0013 Jul, [facility] [id number] [place] [address] 97676- 0510 Jul, Type 2 diabetes mellitus without complication E11.9 [facility] [id number] [place] [address] 94144- 4065 Jul, [facility] [id number] [place] [address] 64384- 2475 Jul, Type 2 diabetes mellitus without complication E11.9 [facility] [id number] [place] [address] 23158- 8853 Jul, [facility] [id number] [place] [address] 49539- 3385 Jul, [facility] [id number] [place] [address] 25312- 7059 Jul, [facility] [id number] [place] [address] 68890- 6367 Jun, Type 2 diabetes mellitus without complication E11.9 [facility] [id number] [place] [address] 42594- 5622 Jun, Chronic migraine G43.709 ; Type 2 diabetes mellitus without complication E11.9 ; Calculus of right kidney N20.0 ; Yeast dermatitis B37.2 and HSV (herpes simplex virus) infection B00.9 [facility] [id number] [place] [address] 61414- 6104 Jun, Type 2 diabetes mellitus without complication E11.9 [facility] [id number] [place] [address] 01299- 7462 Jun, [facility] [id number] [place] [address] 15208- 9163 Jun, Radiculopathy of lumbar region M54.16 and Chronic pain G89.29 [place] [address] 93933- 3955 Jun, Encounter for Depo-Provera contraception Z30.42 [place] [address] 39675- 1492 Jun, Type 2 diabetes mellitus without complication E11.9 [place] [address] 63920- 3415 Jun, [facility] [address] 42510 -3054 May, Acute nasopharyngitis (common cold) J00 [place] [address] 99861- 9744 May, Chronic pain G89.29 [place] [address] 58049- 9061 May, Headache following lumbar puncture G97.1 [place] [address] 80735- 6164 May, Radiculopathy of lumbar region M54.16 [place] [address] 18046- 3642 Apr, [place] [address] 44502- 7357 Apr, Type 2 diabetes mellitus without complication E11.9 ; Chronic pain G89.29 ; Essential hypertension I10 ; Radiculopathy of lumbar region M54.16 ; Spinal stenosis, lumbar region M48.06 ; Gastroesophageal reflux disease without esophagitis K21.9 ; HSV (herpes simplex virus) infection B00.9 ; Mixed hyperlipidemia E78.2 ; Anxiety F41.9 and Asthma J45.909 [place] [address] [id number] [place] [address] 31942- 7354 Apr, Encounter for Depo-Provera contraception Z30.42 [facility] [id number] [place] [address] 92184- 5501 Apr, Chronic pain G89.29 and Anxiety F41.9 [facility] [address] [id number] [place] [address] 48302- 1574 Mar, [place] [id number] [place] [address] 99347- 5970 Mar, [facility] [id number] [place] [address] 94955- 7157 Mar, Mixed hyperlipidemia E78.2 [place] [id number] [place] [address] 43785- 1201 Mar, Type 2 diabetes mellitus without complication E11.9 ; Chronic pain G89.29 ; Essential hypertension I10 ; Radiculopathy of lumbar region M54.16 ; Spinal stenosis, lumbar region M48.06 ; Gastroesophageal reflux disease without esophagitis K21.9 ; HSV (herpes simplex virus) infection B00.9 ; Mixed hyperlipidemia E78.2 and Anxiety F41.9 [place] [id number] [place] [address] 00194- 0659 Mar, [place] [id number] [place] [address] 09686- 2713 Mar, [place] [id number] [place] [address] 58559- 7875 Mar, [place] [id number] [place] [address] 66948- 8601 February, Chronic pain G89.29 [place] [id number] [place] [address] 46120- 1922 February, [place] [id number] [place] [address] 49715- 8591 Jan, Chronic pain G89.29 [place] [id number] [place] [address] 57468- 8907 Jan, Type 2 diabetes mellitus without complication E11.9 [place] [address] [address]- 6974 Jan, [place] [address] [address]- 5428 Jan, [place] [address] [address]- 5805 Jan, [place] [address] [place] [address] 47216- 7526 Jan, Type 2 diabetes mellitus without complication [...] J01.00 and Encounter for Depo-Provera contraception Z30.42 [place] [address] [place] [address] 61544- 4520 28 Dec, 2016 Chronic pain G89.29 [place] [address] [id number] [place] [address] 52909- 4463 17 Dec, 2016 Abnormal ankle brachial index (BERNARDINO) R68.89 [place] [address] [address]- 5673 Dec, [place] [address] [place] [address] 27973- 9555 Dec, Routine gynecological examination Z01.419 ; Chronic [...] virus) infection B00.9 and Allergic rhinitis 477.9 [place] [address] [place] [address] 49948- 7516 Nov, Chronic pain G89.29 [place] [address] [id number] [place] [address] 25977- 2699 02 Nov, 2016 Chronic pain G89.29 ; [...] mucoid otitis media of both ears H65.113 [place] [address] [place] [address] 00718- 1465 Oct, [place] [address] [id number] [place] [address] 50986- 9657 Oct, Chronic pain G89.29 [place] [id number] [place] [address] 46623- 0996 Oct, Chronic pain G89.29 [place] [address] [place] [address] 77689- 3252 Sep, Chronic pain G89.29 ; Type 2 diabetes mellitus without complication E11.9 ; Essential hypertension I10 ; Radiculopathy of lumbar region M54.16 ; Spinal stenosis, lumbar region M48.06 ; Gastroesophageal reflux disease without esophagitis K21.9 ; Encounter for surveillance of injectable contraceptive Z30.42 ; Bilateral cold feet R20.9 ; Pain of left foot M79.672 and Pain in right foot M79.671 [place] [id number] [place] [address] 56915- 3216 Sep, [place] [address] [place] [address] 15392- 4568 Aug, [place] [id number] [place] [address] 69859- 8059 Aug, [facility] [id number] [place] [address] 07956- 8979 Aug, Chronic pain G89.29 ; Type 2 diabetes mellitus without complication E11.9 ; Essential hypertension I10 ; Rash and nonspecific skin eruption R21 and Upper respiratory infection, acute J06.9 [facility] [address] 04644- 1390 Aug, [facility] [id number] [place] [address] 20674- 4706 Aug, [facility] [address] 25261- 3599 Jul, [facility] [id number] [place] [address] 99090- 9516 Jul, Dysuria R30.0 ; Encounter for Depo-Provera contraception Z30.42 ; Herpes simplex B00.9 ; Nausea & vomiting R11.2 and Asthma J45.909 [facility] [address] [address] [place] [address] 55151- 2047 21 Jun, 2016 Dysuria R30.0 [facility] [address] [id number] [place] [address] 32740- 2858 19 Jun, 2016 Dysuria R30.0 [facility] [id number] [place] [address] 49343- 2663 15 Jun, 2016 [facility] [id number] [place] [address] 63120- 4193 13 Jun, 2016 [facility] [id number] [place] [address] 94603- 4128 May, [facility] [id number] [place] [address] 41031- 2807 May, [facility] [address] [place] [address] 78638- 0522 May, Chronic pain G89.29 ; Essential hypertension I10 ; Type 2 diabetes mellitus without complication E11.9 ; Edema of both feet R60.0 and Rash and nonspecific skin eruption R21 [place] [address] [place] [address] 25477- 9882 Apr, [place] [address] [place] [address] 19210- 3673 Mar, Carpal tunnel syndrome, left upper limb G56.02 and Carpal tunnel syndrome, right upper limb G56.01 [place] [address] [place] [address] 30794- 3766 Mar, [address] 65318- 6686 Mar, Encounter for Depo-Provera contraception Z30.[address] 95093- 7837 February, [place] [id number] [place] [address] 28801- 5344 February, [place] [address] [place] [address] 77023- 8189 February, Chronic pain G89.29 ; Essential hypertension I10 ; Type 2 diabetes mellitus without complication E11.9 ; HSV (herpes simplex virus) infection B00.9 ; Anxiety F41.9 ; Hypersomnia G47.10 ; Tobacco abuse Z72.0 ; Hand pain, left M79.642 ; Hand pain, right M79.641 ; Left foot pain M79.672 and Heart palpitations R00.2 [place] [address] [place] [address] 08242- 4395 Jan, [place] [id number] [place] [address] 98241- 9636 Jan, [place] [id number] [place] [address] 15824- 4962 Jan, [place] [address] [place] [address] 44782- 0984 15 Jan, 2016 [place] [address] 79492- 0100 14 Jan, 2016 Upper respiratory infection J06.9 and Type 2 diabetes mellitus without complication E11.9 [place] [address] 40977- 5540 30 Dec, 2015 [place] [address] 07041- 5950 Dec, Chronic pain G89.29 ; Essential hypertension I10 ; Type 2 diabetes mellitus without complication E11.9 ; HSV (herpes simplex virus) infection B00.9 ; Anxiety F41.9 ; Upper respiratory infection J06.9 ; Hypersomnia G47.10 and Tobacco abuse Z72.[address] 60977- 0411 Dec, Encounter for Depo-Provera contraception Z30.[address] 83969- 5264 Dec, [address] 82637- 5944 Dec, Chronic pain G89.29 ; Sinusitis J32.9 ; Snoring R06.83 and Daytime hypersomnia G47.[address] 70860- 6082 Nov, HSV (herpes simplex virus) infection B00.9 ; Encounter for Papanicolaou smear for cervical cancer screening Z12.4 ; Screening for STD sexually transmitted disease Z11.3 and Bartholin's gland cyst N75.[address] 58321- 7043 Nov, [place] [address] 21070- 5377 16 Nov, [address] 07513- 9771 Nov, Essential hypertension I10 ; Type 2 diabetes mellitus without complication E11.9 ; HSV (herpes simplex virus) infection B00.9 ; Spinal stenosis, lumbar region M48.06 and Vaginal yeast infection B37.3 [place] [id number] [place] [address] 81200- 7653 Nov, [place] [id number] [place] [address] 63853- 6436 Nov, [place] [id number] [place] [address] 58688- 3992 Oct, [place] [address] 79052- 5989 Oct, HSV (herpes simplex virus) infection B00.9 ; Yeast infection B37.9 ; Change in bowel habit R19.4 ; Nausea & vomiting R11.2 and Gastroesophageal reflux disease without esophagitis K21.9 [place] [address] 31752- 4889 Oct, [place] [address] [place] [address] 64472- 3647 Oct, Type 2 diabetes mellitus without complication E11.9 ; Essential hypertension I10 and Acute maxillary sinusitis, recurrence not specified J01.00 [place] [address] [place] [address] 94461- 7790 Oct, [place] [id number] [place] [address] 96834- 1062 Oct, [place] [address] [place] [address] 66229- 2868 Oct, Exposure to head lice Z20.7 ; Blood glucose abnormal R73.09 ; Boil of buttock L02.32 and Type 2 diabetes mellitus without complication E11.9 [place] [address] [place] [address] 86114- 5999 Oct, [place] [address] 77751- 2595 Sep, [place] [id number] [place] [address] 57991- 2502 Sep, [place] [address] [place] [address]- 5929 Aug, Encounter for Depo-Provera contraception Z30.42 [place] [address] 95844- 1869 Aug, Anxiety F41.9 ; Spinal stenosis, lumbar region M48.06 ; Radiculopathy of lumbar region M54.16 ; Asthma J45.909 ; GERD (gastroesophageal reflux disease) K21.9 ; Essential hypertension I10 and Long-term use of high- risk medication Z79.[address] 01346- 5529 Jul, [place] [address] 77748- 5706 Jun, Hemorrhoid 455.6 [place] [address] [address] Jun, [place] [address] [address] Jun, Anxiety 300.00 ; Asthma 493.90 ; Hyperhidrosis 705.21 ; Chest discomfort 786.59 and Upper respiratory infection 465.9 [place] [address] [address] May, Encounter for Depo-Provera contraception V25.49 [place] [address] [address] May, [place] [address] [address] May, [place] [address] [place] [id number] [place] [address] May, Spinal stenosis of lumbar region with radiculopathy 724.02 ; Bulging of intervertebral disc between L4 and L5 722.10 ; GERD ( gastroesophageal reflux disease) 530.81 ; Chronic pain 338.29 ; Declining mobility 799.89 and Epigastric pain 789.06 [facility] [address] [place] [id number] [place] [address] Apr, [facility] [address] [address] Apr, Nausea 787.02 and Heart burn 787.1 [facility] [address] [address] Mar, Lumbago 724.2 ; Vitamin D deficiency 268.9 ; Anxiety 300.00 ; Allergic rhinitis 477.9 and Contraceptive surveillance V25.40 [facility] [address] [place] [id number] [place] [address] February, 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 ; Chronic pain 338.29 and Vaginal discharge 623.5 [facility] [address] [place] [id number] [place] [address] February, [facility] [address] [address] February, [facility] [address] [place] [id number] [place] [address] Jan, [facility] [address] [place] [id number] [place] [id number]- 2921 Jan, [facility] [id number] [place] [address]- 5106 Dec, [facility] [address] [address] Dec, [facility] [id number] [place] [address]- 5037 Dec, [facility] [address] [address]- [address] 25 Dec, 2014 [facility] [place] [facility] [address] [id number] [place] [address]- 4107 18 Dec, 2014 [facility] [place] [facility] [address] [id number] [place] [address]- 8036 18 Dec, 2014 [facility] [place] [facility] [address] [id number] [place] [address]- 6979 13 Dec, 2014 [facility] [place] [facility] [address] [id number] [place] [address]- 1850 13 Dec, 2014 [facility] [place] [facility] [address] [id number] [place] [address]- 2035 12 Dec, 2014 [facility] [place] [facility] [address] [id number] [place] [address]- 0417 Dec, [facility] [place] [facility] [address] [id number] [place] [address]- 2041 Dec, [facility] [place] [facility] [address] [id number] [place] [address]- 6964 Dec, [facility] [place] [facility] [address] [id number] [place] [address]- 6852 Nov, [facility] [place] [facility] [address] [id number] [place] [address]- 3823 27 Nov, 2014 [facility] [place] [facility] [address] [id number] [place] [address]- 4967 24 Nov, 2014 [facility] [place] [facility] [address] [id number] [place] [address]- 6016 24 Nov, 2014 [facility] [place] [facility] [address] [id number] [place] [address]- 1563 23 Nov, 2014 [facility] [place] [facility] [address] [id number] [place] [address]- 1369 23 Nov, 2014 [facility] [place] [facility] [address] [id number] [place] [address]- 6665 16 Nov, 2014 [facility] [place] [facility] [address] [id number] [place] [address]- 1508 16 Nov, 2014 [facility] [place] [facility] [address] [id number] [place] [address]- 3576 13 Nov, 2014 [facility] [place] [facility] [address] [id number] [place] [address] 2546 13 Nov, 2014 [facility] [place] [facility] [address] [id number] [place] [address]- 6069 13 Nov, 2014 [facility] [place] [facility] [address] [id number] [place] [address]- 2542 13 Nov, 2014 [facility] [place] [facility] [address] [id number] [place] [address]- 4828 13 Nov, 2014 [facility] [place] [facility] [address] [facility] [id number] [place] [address]- 4033 13 Nov, 2014 [facility] [place] [facility] [address] [facility] [id number] [place] [address]- 1809 Nov, 2014 [facility] [place] [facility] [address] [facility] [id number] [place] [address]- 3376 13 Nov, 2014 [facility] [place] [facility] [address] [facility] [id number] [place] [address]- 8047 10 Nov, 2014 [facility] [place] [facility] [address] [facility] [id number] [place] [address]- 0511 10 Nov, 2014 [facility] [place] [facility] [address] [facility] [id number] [address]- 2547 Nov, 2014 [facility] [place] [facility] [address] [facility] [id number] [place] [address]- 5162 Nov, 2014 [facility] [place] [facility] [address] [id number] [place] [address]- 4893 Nov, 2014 [facility] [place] [facility] [address] [facility] [id number] [place] [address]- 2298 Nov, 2014 [facility] [place] [facility] [address] [facility] [id number] [place] [address]- 3922 Nov, [facility] [address] [id number] [place] [address]- 8537 Oct, [facility] [place] [facility] [address] [id number] [place] [address]- 6629 Oct, [facility] [address] [id number] [place] [address]- 5521 Oct, [facility] [place] [facility] [address] [id number] [place] [address]- 6788 Oct, [facility] [address] [id number] [place] [address]- 2262 Oct, [facility] [address] [id number] [place] [address]- 6623 Oct, [facility] [address] [id number] [place] [address]- 8978 Oct, [facility] [address] [id number] [place] [address]- 2279 Oct, [facility] [address] [id number] [place] [address]- 9484 Oct, [facility] [address] [id number] [place] [address]- 3619 Oct, [facility] [place] [facility] [address] [id number] [place] [address]- 1557 Oct, [facility] [place] [facility] [address] [id number] [place] [address]- 3200 Oct, [facility] [place] [facility] [address] [id number] [place] [address]- 7560 Oct, [facility] [place] [facility] [address] [id number] [place] [address]- 5572 Oct, [facility] [place] [facility] [address] [id number] [place] [address]- 4029 Oct, [facility] [place] [facility] [address] [id number] [place] [address]- 6750 15 Oct, 2014 [facility] [place] [facility] [address] [id number] [place] [address]- 0785 15 Oct, 2014 [facility] [place] [facility] [address] [id number] [place] [address]- 0221 Oct, [facility] [place] [facility] [address] [id number] [place] [address]- 9441 Oct, [facility] [place] [facility] [address] [id number] [place] [address]- 8591 Oct, [facility] [place] [facility] [address] [id number] [place] [address]- 4145 Oct, [facility] [place] [facility] [address] [id number] [place] [address]- 1840 Sep, [facility] [place] [facility] [address] [id number] [place] [address]- 8676 29 Sep, 2014 [facility] [place] [facility] [address] [id number] [place] [address]- 9710 18 Sep, 2014 [facility] [place] [facility] [address] [id number] [place] [address]- 0643 18 Sep, 2014 [facility] [place] [facility] [address] [id number] [place] [address]- 6671 17 Sep, 2014 [facility] [place] [facility] [address] [id number] [place] [address]- 9479 17 Sep, 2014 [facility] [place] [facility] [address] [id number] [place] [address]- 1130 15 Sep, 2014 [facility] [place] [facility] [address] [id number] [place] [address]- 0652 15 Sep, 2014 [facility] [place] [facility] [address] [id number] [place]390 12 Sep, 2014 [facility] [place] [facility] [address] [id number], [place] [address]- 2812 Sep, [facility] [place] [facility] [address] [id number] [place] [address]- 7709 Sep, [facility] [place] [facility] [address] [id number] [place] [address]- 0597 Sep, [facility] [place] [facility] [address] [id number] [place] [address]- 5424 Sep, [facility] [place] [facility] [address] [id number] [place] [address]- 9487 Sep, [facility] [place] [facility] [address] [id number] [place] [address]- 1263 Sep, [facility] [place] [facility] [address] [id number] [place] [address]- 5186 Sep, [facility] [place] [facility] [address] [id number] [place] [address]- 4997 Sep, [facility] [place] [facility] [address] [id number] [place] [address]- 9805 Sep, [facility] [place] [facility] [address] [id number] [place] [address]- 2639 Sep, [facility] [place] [facility] [address] [id number] [place] [address]- 7974 Sep, [facility] [place] [facility] [address] [id number] [place] [address]- 6289 Aug, [facility] [place] [facility] [address] [id number] [place] [address]- 4892 Aug, [facility] [place] [facility] [address] [id number] [place] [address]- 7513 Aug, [facility] [place] [facility] [address] [id number] [place] [address]- 3567 Aug, [facility] [place] [facility] [address] [id number] [place] [address]- 3168 Aug, [facility] [place] [facility] [address] [id number] [place] [address]- 8318 Aug, [facility] [place] [facility] [address] [id number] [place] [address]- 0528 Aug, [facility] [place] [facility] [address] [id number] [place] [address]- 9381 Aug, [facility] [place] [facility] [address] [id number] [place] [address]- 8021 Aug, [facility] [place] [facility] [address] [id number] [place] [address]- 6363 Jul, [facility] [place] [facility] [address] [id number] [place] [address]- 0877 Jul, [facility] [place] [facility] [address] [id number] [place] [address]- 7148 Jul, [facility] [place] [facility] [address] [id number] [place] [address]- 0971 Jul, [facility] [place] [facility] [address] [id number] [place] [address]- 5992 Jul, [facility] [place] [facility] [address] [id number] [place] [address]- 6813 Jul, [facility] [place] [facility] [address] [id number] [place] [address]- 8262 Jul, [facility] [place] [facility] [address] [id number] [place] [address]- 7019 Jul, [facility] [place] [facility] [address] [id number] [place] [address]- 9840 Jul, [facility] [place] [facility] [address] [id number] [place] [address]- 0052 Jul, [facility] [place] [facility] [address] [id number] [place] [address]- 5112 Jul, [facility] [place] [facility] [address] [id number] [place] [address]- 1199 Jul, [facility] [place] [facility] [address] [id number] [place] [address]- 9883 07 Jul, 2014 [facility] [place] [facility] [address] [id number] [place] [address]- 0592 07 Jul, 2014 [facility] [place] [facility] [address] [id number] [place] [address]- 8250 30 Jun, 2013 [facility] [place] [facility] [address] [id number] [place] [address]- 0578 30 Jun, 2013 [facility] [place] [facility] [address] [id number] [place] [address]- 0415 25 Jun, 2013 [facility] [place] [facility] [address] [id number] [place] [address]- 1402 25 Jun, 2013 [facility] [place] [facility] [address] [id number] [place] [address]- 7047 25 Jun, 2013 [facility] [place] [facility] [address] [id number] [place] [address]- 6356 25 Jun, 2013 [facility] [place] [facility] [address] [id number] [place] [address]- 6778 24 Jun, 2013 [facility] [place] [facility] [address] [id number] [place] [address]- 5466 24 Jun, 2013 [facility] [place] [facility] [address] [id number] [place] [address]- 7927 22 Jun, 2013 [facility] [place] [facility] [address] [id number], [place] [address]- 2229 22 Jun, 2013 [facility] [place] [facility] [address] [id number] [place] [address]- 8112 17 Jun, 2013 [facility] [place] [facility] [address] [id number] [place] [address]- 3739 17 Jun, 2013 [facility] [place] [facility] [address] [id number] [place] [address]- 8649 16 Sep, 2013 [facility] [place] [facility] [address] [id number] [place] [address]- 2516 16 Jun, 2013 [facility] [place] [facility] [address] [id number] [place] [address]- 1666 15 Jun, 2013 [facility] [place] [facility] [address] [id number] [place] [address]- 7406 15 Jun, 2013 [facility] [place] [facility] [address] [id number] [place] [address]- 1802 12 Jun, 2013 [facility] [place] [facility] [address] [id number] [place] [address]- 2471 12 Jun, 2013 [facility] [place] [facility] [address] [id number] [place] [address]- 5653 11 Jun, 2013 [facility] [place] [facility] [address] [id number] [place] [address]- 8153 11 Jun, 2013 [facility] [place] [facility] [address] [id number] [place] [address]- 7047 11 Jun, 2013 [facility] [place] [facility] [address] [id number] [place] [address]- 0977 11 Jun, 2013 [facility] [place] [facility] [address] [id number] [place] [address]- 6428 09 Jun, 2013 [facility] [place] [facility] [address] [id number] [place] [address]- 6174 09 Jun, 2013 [facility] [place] [facility] [address] [id number] [place] [address]- 2086 Jun, 2013 [facility] [place] [facility] [address] [id number] [place] [address]- 2543 Jun, 2013 [facility] [place] [facility] [address] [id number] [place] [address]- 8839 May, [facility] [place] [facility] [address] [id number] [place] [address]- 9359 May, [facility] [place] [facility] [address] [id number] [place] [address]- 6398 May, [facility] [place] [facility] [address] [id number] [facility] [place] [address]- 1552 May, [facility] [place] [facility] [address] [id number] [place] [address]- 7620 May, [facility] [place] [facility] [address] [id number] [place] [address]- 8164 May, [facility] [place] [facility] [address] [id number] [place] [address]- 7841 May, [facility] [place] [facility] [address] [id number] [place] [address]- 1513 May, [facility] [place] [facility] [address] [id number] [place] [address]- 2497 May, [facility] [place] [facility] [address] [id number] [place] [address]- 0375 May, [facility] [place] [facility] [address] [id number] [place] [address]- 7359 May, [facility] [place] [facility] [address] [id number] [place] [address]- 4763 May, [facility] [place] [facility] [address] [id number] [place] [address]- 7747 May, [facility] [place] [facility] [address] [id number] [place] [address]- 6180 Apr, [facility] [place] [facility] [address] [id number] [place] [address]- 6517 Apr, [facility] [place] [facility] [address] [id number] [facility] [place] [address]- 7561 Apr, [facility] [place] [facility] [address] [id number] [place] [address]- 4967 Apr, [facility] [place] [facility] [address] [id number] [place] [address]- 5314 Apr, [facility] [place] [facility] [address] [id number] [place] [address]- 8848 Mar, [facility] [place] [facility] [address] [id number] [place] [address]- 9113 Mar, [facility] [place] [facility] [address] [id number] [place] [address]- 1137 Mar, [facility] [place] [facility] [address] [id number] [place] [address]- 1198 February, [facility] [place] [facility] [address] [id number] [place] [address]- 5592 February, [facility] [place] [facility] [address] [id number] [place] [address]- 0399 February, [facility] [place] [facility] [address] [id number] [place] [address]- 9382 February, [facility] [place] [facility] [address] [id number] [place] [address]- 3635 February, [facility] [place] [facility] [address] [id number] [place] [address]- 1382 February, [facility] [place] [facility] [address] [id number] [place] [address]- 8986 February, [facility] [place] [facility] [address] [id number] [place] [address]- 6199 February, [facility] [place] [facility] [address] [id number] [place] [address]- 7822 February, [facility] [place] [facility] [address] [id number] [place] [address]- 6315 Jan, [facility] [place] [facility] [address] [id number] [place] [address]- 7301 Jan, [facility] [place] [facility] [address] [id number] [place] [address]- 6530 Jan, [facility] [place] [facility] [address] [id number] [place] [address]- 8018 Jan, [facility] [place] [facility] [address] [id number] [place] [address]- 5731 Jan, [facility] [place] [facility] [address] [id number] [place] [address]- 6019 Dec, [facility] [place] [facility] [address] [id number] [place] 4435 Dec, [facility] [place] [facility] [address] [id number] [place] [address]- 0345 Dec, [facility] [place] [facility] [address] [id number] [place] [address]- 8580 Dec, [facility] [place] [facility] [address] [id number] [place] [address]- 3071 Dec, [facility] [place] [facility] [address] [id number] [place] [address]- 5070 Nov, [facility] [place] [facility] [address] [id number] [place] [address]- 5307 Nov, [facility] [place] [facility] [address] [id number] [place] [address]- 5382 Nov, [facility] [place] [facility] [address] [id number] [place] [address]- 6647 Nov, [facility] [place] [facility] [address] [id number] [place] [address]- 6489 Oct, [facility] [place] [facility] [address] [id number] [place] [address]- 3784 Oct, [facility] [place] [facility] [address] [id number] [place] [address]- 6182 Oct, [facility] [place] [facility] [address] [id number] [place] [address]- 1804 Oct, [facility] [place] [facility] [address] [id number] [place] [address]- 2355 Oct, [facility] [place] [facility] [address] [id number] [place] [address]- 4458 Oct, [facility] [place] [facility] [address] [id number] [place] [address]- 6554 Oct, [facility] [place] [facility] [address] [id number] [place] [address]- 6803 Oct, [facility] [place] [facility] [address] [id number] [place] [address]- 2218 Oct, [facility] [place] [facility] [address] [id number] [place] [address]- 2231 Oct, [facility] [place] [facility] [address] [id number] [place] [address]- 5046 Aug, [facility] [place] [facility] [address] [id number] [place] [address]- 0885 Aug, [facility] [place] [facility] [address] [id number] [place] [address]- 1100 Jul, [facility] [place] [facility] [address] [id number], [place] [address]- 5965 Jul, [facility] [place] [facility] [address] [id number] [place] [address]- 7268 Jul, [facility] [place] [facility] [address] [id number], [place] [address]- 2019 Jul, [facility] [place] [facility] [address] [id number], [place] [address]- 8395 Jul, [facility] [place] [facility] [address] [id number], [place] [address]- 3284 Jul, [facility] [place] [facility] [address] [id number] [place] [address] Apr, [facility] [place] [facility] [address] [id number], [place] [address] Dec, [facility] [place] [facility] [address] [id number] [place] [address] Nov, [facility] [place] [facility] [address] [id number] [place] [address] 12 Nov, 2012 [facility] [address] [id number] [place] [address] 07 Nov, 2012 [facility] [place] [facility] [address] [id number] [place] [address] 16 Oct, 2012 [facility] [address] [id number] [place] [address] Sep, [facility] [place] [facility] [address] [id number] [place] [address] Sep, [facility] [place] [facility] [address] [id number] [place] [address] Sep, [facility] [place] [facility] [address] [id number] [place] [address] Sep, [facility] [address] [id number] [place] [address] Aug, [facility] [place] [facility] [address] [id number] [place] [address] Aug, [facility] [place] [facility] [address] [id number] [place] [address] Jul, [facility] [place] [facility] [address] [id number] [place] [address] Jul, [facility] [place] [facility] [address] [id number] [place] [address]- [address]48 28 Jun, 2012 [facility] [place] [facility] [address] [id number] [place] [address]- [address]40 26 Jun, 2012 [facility] [place] [facility] [address] [id number] [place] [address] 2544 24 Jun, 2012 [facility] [place] [facility] [address] [id number] [place] [address]- [address]49 24 Jun, 2012 [facility] [place] [facility] [address] [id number] [place] [address] Jun, [facility] [place] [facility] [address] [id number] [place] [address] Apr, [facility] [place] [facility] [address] [id number] [place] [address] Apr, [facility] [place] [facility] [address] [id number] [place] [address]- [address] Apr, [facility] [place] [facility] [address] [id number] [place] [address] Mar, [facility] [place] [facility] [address] [id number] [place] [address] Mar, [facility] [place] [facility] [address] [id number] [place] [address] Mar, [facility] [place] [facility] [address] [id number] [place] [address] February, [facility] [place] [facility] [address] [id number] [place] [address] Jan, [facility] [place] [facility] [address] [id number] [place] [address] Dec, [facility] [place] [facility] [address] [id number] [place] [address] Dec, [facility] [place] [facility] [address] [id number] [place] [address]- [address]54 Dec, [facility] [place] [facility] [address] [id number] [place] [address] Dec, [facility] [place] [facility] [address] [id number] [place] [address]- [address] Dec, [facility] [place] [facility] [address] [id number] [place] [address]- [address] 14 Nov, 2011 [facility] [place] [facility] [address] [id number] [place] [address]- 2426 13 Nov, 2011 [facility] [place] [facility] [address] [id number], [place] [address] Oct, [facility] [address] [id number] [place] [address]- [address] Oct, [facility] [place] [facility] [address] [id number] [place] [address]679 Oct, [facility] [place] [facility] [address] [facility] [id number] [place] [address] 13 Sep, 2011 [facility] [place] [facility] [address] [id number] [place] [address]25 Aug, [facility] [place] [facility] [address] [id number] [place] [address]- 37[address] Aug, [facility] [place] [facility] [address] [id number] [place] [address]- [address]80 28 Jul, 2011 [facility] [place] [facility] [address] [facility] [id number] [place] [address]- [address]396 24 Jul, 2011 [facility] [place] [facility] [address] [id number] [place] [address]70 Jul, [facility] [place] [facility] [address] [facility] [id number] [place] [address]- 20[address] Jan, [facility] [place] [facility] [address] [facility] [id number] [place] [address] 29 Sep, 2010 [facility] [place] [facility] [address] [id number] [place] [address]- [address]30 27 Sep, 2010 [facility] [place] [facility] [address] [id number] [place] [address]- 1372 20 Sep, 2010 [facility] [place] [facility] [address] [id number] [place] [address]- 8865 20 Sep, 2010 [facility] [place] [facility] [address] [facility] [id number] [place] [address]- 8973 06 Sep, 2010 [facility] [place] [facility] [address] [facility] [id number] [place] [address]- [address] 16 Aug, 2010 [facility] [place] [facility] [id number], [place] [address] 16 Aug, 2010 [facility] [id number] [address] 08 Aug, 2010 [facility] [id number] [address] Jul, [facility] [id number] [address] Jul, [facility] [address] [facility] [id number], [place] [address] Jul, [facility] [id number] [address] May, [facility] [id number], [place] [address] Apr, [facility] [id number], [place] [address] Dec, [facility] [id number], [place] [address] Sep, [facility] [id number], [place] [address] Sep, [facility] [id number], [place] [address] Aug, [facility] [address] [id number], [place] [address]28 Aug, [facility] [address] [id number], [place] [address] Jul, [facility] [id number] [address] [address] 10 Mar, 2009 IMMUNIZATIONS No Known Immunizations [...] 2015 Hospitalization History Surgery(s) only Hospitalization History [place]-sepsis/ARF 06/2017
[2018-11-27] MEDS ORDERED: morphine INJ 10 MG/ML 1ML (SYR OR VIAL) IVP ONE (21:15)
[2018-11-27] MEDS ORDERED: ONDANSETRON 4 MG/2 ML (SDV) Z0FRAN IVP ONE (21:15)
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
[2018-11-27 21:18] LABS: BASOPHILS % (AUTO) 0 % (0-10); EOSINOPHILS % (AUTO) 0 % (0-10); HEMATOCRIT 41 % (35-52); HEMOGLOBIN 14.9 G/DL (11.5-16.0); LYMPHOCYTES # (AUTO) 2.7 X 10^3 (1.0-4.0); LYMPHOCYTES % (AUTO) 14 % (12-44); MEAN CORPUSCULAR HEMOGLOBIN 31 PG (25-34); MEAN CORPUSCULAR HGB CONC 36 G/DL (32-36); MEAN CORPUSCULAR VOLUME 86 FL (80-99); MEAN PLATELET VOLUME 10.5 FL (7.4-10.4); MONOCYTES # (AUTO) 1.5 X 10^3 (0.0-1.0); MONOCYTES % (AUTO) 8 % (0-12); NEUTROPHILS # (AUTO) 15.6 X 10^3 (1.8-7.8); NEUTROPHILS % (AUTO) 79 % (42-75); PLATELET COUNT 337 10^3/uL (130-400); RED CELL DISTRIBUTION WIDTH 13.3 % (10.0-14.5); WHITE BLOOD COUNT 19.8 10^3/uL (4.3-11.0)
[2018-11-27 21:18] LABS: BILIRUBIN,URINE NEGATIVE (NEGATIVE); CLARITY,URINE CLEAR; COLOR,URINE YELLOW; GLUCOSE, URINE (UA) 4+ (NEGATIVE); KETONES,URINE NEGATIVE (NEGATIVE); LEUKOCYTE ESTERASE ,URINE NEGATIVE (NEGATIVE); NITRITE,URINE NEGATIVE (NEGATIVE); PH,URINE 6 (5-9); PROTEIN,URINE 2+ (NEGATIVE); UROBILINOGEN,URINE NORMAL (NORMAL)
[2018-11-27 21:25] LABS: BACTERIA,URINE NEGATIVE /HPF; RBC,URINE 0-2 /HPF; WBC,URINE RARE /HPF
[2018-11-27] MEDS ORDERED: FLEET ENEMA ADULT 1 EA BTL PR ONE (21:30)
[2018-11-27 21:37] LABS: BILIRUBIN,TOTAL 0.4 MG/DL (0.1-1.0); CALCIUM 9.7 MG/DL (8.5-10.1); CREATININE SERUM 1.56 MG/DL (0.60-1.30); POTASSIUM 4.5 MMOL/L (3.6-5.0); TOTAL PROTEIN 8.7 GM/DL (6.4-8.2)
[2018-11-27 21:41] LABS: BAND NEUTROPHILS 2 %; BASOPHILS % (MANUAL) 0 %; EOSINOPHILS % (MANUAL) 0 %; LYMPHOCYTES % (MANUAL) 18 %; MONOCYTES % (MANUAL) 7 %; NEUTROPHILS % (MANUAL) 73 %; RBC MORPH NORMAL
[2018-11-27 21:44] LABS: AMPHETAMINE SCREEN, URINE NEGATIVE (NEGATIVE); BARBITURATE SCREEN URINE NEGATIVE (NEGATIVE); BENZODIAZEPINES SCREEN URINE NEGATIVE (NEGATIVE); CANNABINOID SCREEN, URINE NEGATIVE (NEGATIVE); COCAINE SCREEN URINE NEGATIVE (NEGATIVE); METHADONE STAT NEGATIVE (NEGATIVE); METHAMPHETAMINE SCREEN URINE S NEGATIVE (NEGATIVE); OPIATE SCREEN URINE NEGATIVE (NEGATIVE); OXYCODONE STAT NEGATIVE (NEGATIVE); PROPOXYPHENE STAT NEGATIVE (NEGATIVE); TRICYCLIC ANTIDEPRESSANTS SCRE NEGATIVE (NEGATIVE)
[2018-11-27] MEDS ORDERED: inSUlin REGULAR TPN/DRIP ONLY 250 UNITS in NORMAL SALINE 250 ML IV SCH (21:45)
[2018-11-27] MEDS ORDERED: NS 100 ML (IVPB) BAG IV ONE (21:45)
[2018-11-27] MEDS ORDERED: IOHEXOL 350 MG/ML 100 ML (OMNIPAQUE 350) VIAL IV ONE (21:45)
[2018-11-27] MEDS ORDERED: NS IV 1000 ML 1,000 ML IV SCH (21:45)
[2018-11-27] MEDS ORDERED: inSUlin (REGULAR) HUMAN 1 UNIT/0.01 ML (CHARGE PER UNIT) IV ONE (21:45)
--- OUTSIDE RECORDS SUMMARY | 2018-11-27 22:07 | XMS REPORT | Continuity of Care Document ---
Author Author [facility] Address Unknown Phone Unavailable Allergies Active Description Code Type Severity Reaction Onset Reported/Identified Relationship to Patient Clinical Status Yes LEVAQUIN MODERATE OTHER Yes SHELL FISH SEVERE ANAPHYLACTIC SHOCK Yes Quinolones [id number] Drug Allergy Unknown N/A 02/10/2006 Yes CLINONE CLINONE Mild N/A 03/21/2009 Yes levofloxacin [id number] Drug Allergy Mild N/A 03/21/2009 Yes Levaquin Drug Allergy N/A N/A 07/25/2009 Yes shellfish Food Allergy N/A N/A 07/25/2009 Yes Levaquin Drug Allergy 07/25/2009 Yes shellfish Food Allergy 07/25/2009 Yes Prozac Drug Allergy N/A N/A 03/24/2012 Yes Prozac 40 mg Capsule Drug Allergy 03/24/2012 Yes Quinolones Drug Allergy N/A N/A 06/16/2014 Yes shellfish derived [id number] Drug Allergy Unknown N/A 05/27/2015 Medications Medication [...] PHD V72.31 ROUTINE PELVIC EXAM 05/12/2008 MADL TAX LAWYER, JENNY L 625.0 DYSPAREUNIA 05/12/2008 MADL TAX LAWYER, JENNY L V25.40 visit for: contraceptive surveillance 05/12/2008 MADL TAX LAWYER, JENNY L V72.31 ROUTINE PELVIC EXAM 05/12/2008 [...] PHD V72.31 ROUTINE PELVIC EXAM 05/12/2008 MADL TAX LAWYER, JENNY L 625.0 DYSPAREUNIA 05/12/2008 MADL TAX LAWYER, JENNY L V25.40 visit for: contraceptive surveillance 05/12/2008 MADL TAX LAWYER, JENNY L V72.31 ROUTINE PELVIC EXAM 05/12/2008 ANA MONREAL PHD 625.0 DYSPAREUNIA 05/12/2008 ANA MONREAL PHD V25.40 visit for: contraceptive surveillance 05/12/2008 ANA MONREAL PHD V72.31 ROUTINE PELVIC EXAM 05/12/2008 ANA MONREAL PHD 625.0 DYSPAREUNIA 05/12/2008 ANA MONREAL PHD V25.40 visit for: contraceptive surveillance 05/12/2008 ANA MONREAL PHD V72.31 ROUTINE PELVIC EXAM 05/12/2008 MADL TAX LAWYER, JENNY L 625.0 DYSPAREUNIA 05/12/2008 MADL TAX LAWYER, JENNY L V25.40 visit for: contraceptive surveillance 05/12/2008 MADL TAX LAWYER, JENNY L V72.31 ROUTINE PELVIC EXAM 05/12/2008 ANA MONREAL PHD 625.0 DYSPAREUNIA 05/12/2008 ANA MONREAL PHD V25.40 visit for: contraceptive surveillance 05/12/2008 ANA MONREAL PHD V72.31 ROUTINE PELVIC EXAM 05/12/2008 CHRIS HELM DO 625.0 DYSPAREUNIA 05/12/2008 CHRIS HELM DO K V25.40 visit for: contraceptive surveillance 05/12/2008 ALICJA CHENG CHRIS K V72.31 ROUTINE PELVIC EXAM 05/12/2008 MADL TAX LAWYER, JENNY L 625.0 DYSPAREUNIA 05/12/2008 MADL TAX LAWYER, JENNY L V25.40 visit for: contraceptive surveillance 05/12/2008 MADL TAX LAWYER, JENNY L V72.31 ROUTINE PELVIC EXAM 05/12/2008 MADL TAX LAWYER, JENNY L 625.0 DYSPAREUNIA 05/12/2008 MADL TAX LAWYER, JENNY L V25.40 visit for: contraceptive surveillance 05/12/2008 MADL TAX LAWYER, JENNY L V72.31 ROUTINE PELVIC EXAM 05/12/2008 ANA MONREAL PHD 625.0 DYSPAREUNIA 05/12/2008 ANA MONREAL PHD V25.40 visit for: contraceptive surveillance 05/12/2008 ANA MONREAL PHD V72.31 ROUTINE PELVIC EXAM 05/12/2008 ANA MONREAL PHD 625.0 DYSPAREUNIA 05/12/2008 ANA MONREAL PHD V25.40 visit for: contraceptive surveillance 05/12/2008 ANA MONREAL PHD V72.31 ROUTINE PELVIC EXAM 05/12/2008 MADL TAX LAWYER, JENNY L 625.0 DYSPAREUNIA 05/12/2008 MADL TAX LAWYER, JENNY L V25.40 visit for: contraceptive surveillance 05/12/2008 MADL TAX LAWYER, JENNY L V72.31 ROUTINE PELVIC EXAM 05/12/2008 MADL TAX LAWYER, JENNY L 625.0 DYSPAREUNIA 05/12/2008 MADL TAX LAWYER, JENNY L V25.40 visit for: contraceptive surveillance 05/12/2008 MADL TAX LAWYER, JENNY L V72.31 ROUTINE PELVIC EXAM 05/12/2008 [...] A 626.8 DYSFUNCTIONAL UTERINE BLEEDING 06/15/2008 MADL TAX LAWYER, JENNY L 626.8 DYSFUNCTIONAL UTERINE BLEEDING 06/15/2008 ANA MONREAL PHD 626.8 DYSFUNCTIONAL UTERINE BLEEDING 06/15/2008 ANA MONREAL PHD 626.8 DYSFUNCTIONAL UTERINE BLEEDING 06/15/2008 MADL TAX LAWYER, JENNY L 626.8 DYSFUNCTIONAL UTERINE BLEEDING 06/15/2008 [...] K 626.8 DYSFUNCTIONAL UTERINE BLEEDING 06/15/2008 MADL TAX LAWYER, JENNY L 626.8 DYSFUNCTIONAL UTERINE BLEEDING 06/15/2008 CHACORT[place] TAX LAWYER, JENNY L 626.8 DYSFUNCTIONAL UTERINE BLEEDING 06/15/2008 ANA MONREAL PHD 626.8 DYSFUNCTIONAL UTERINE BLEEDING 06/15/2008 ANA MONREAL PHD 626.8 DYSFUNCTIONAL UTERINE BLEEDING 06/15/2008 MAD TAX LAWYER, JENNY L 626.8 DYSFUNCTIONAL UTERINE BLEEDING 06/15/2008 MADL TAX LAWYER, JENNY L 626.8 DYSFUNCTIONAL UTERINE BLEEDING 06/15/2008 [...] Contracept Agent - Repeat Rx 08/13/2008 MADL TAX LAWYERJENNY V25.49 Gynecologic Service Prescrip Of Contracept Agent [...] Contracept Agent - Repeat Rx 08/13/2008 CHACORTAL TAX LAWYERJENNY V25.49 Gynecologic Service Prescrip Of Contracept Agent - Repeat Rx 08/13/2008 ANA MONREAL PHD V25.49 Gynecologic Service Prescrip Of Contracept Agent - Repeat Rx 08/13/2008 ANA MONREAL PHD V25.49 Gynecologic Service Prescrip Of Contracept Agent - Repeat Rx 08/13/2008 CHACORTA TAX LAWYERJENNY V25.49 Gynecologic Service Prescrip Of Contracept Agent [...] 09/21/2008 TOM TREVINO, TIMI 724.5 BACKACHE 09/21/2008 HELM DO, CHRIS K 724.5 BACKACHE 09/21/2008 ALISA TAX LAWYER, DOMENIC A 724.5 BACKACHE 09/21/2008 ZAIRE SWIFT, CAMMY B 724.5 BACKACHE 09/21/2008 HELM DO, CHRIS K 724.5 BACKACHE 09/21/2008 RAH PHD, ANA A 724.5 BACKACHE 09/21/2008 ALISA TAX LAWYER, DOMENIC A 724.5 BACKACHE 09/21/2008 MADL TAX LAWYER, JENNY L 724.5 BACKACHE 09/21/2008 RAH PHD, ANA A 724.5 BACKACHE 09/21/2008 RAH PHD, ANA A 724.5 BACKACHE 09/21/2008 MADL TAX LAWYER, JENNY L 724.5 BACKACHE 09/21/2008 JENSEN TREVINO, GWEN 724.5 BACKACHE 09/21/2008 RAH PHD, ANA A 724.5 BACKACHE 09/21/2008 RAH PHD, ANA A 724.5 BACKACHE 09/21/2008 RAH PHD, ANA A 724.5 BACKACHE 09/21/2008 MADL TAX LAWYER, JENNY L 724.5 BACKACHE 09/21/2008 RAH PHD, ANA A 724.5 BACKACHE 09/21/2008 RAH PHD, ANA A 724.5 BACKACHE 09/21/2008 MADL TAX LAWYER, JENNY L 724.5 BACKACHE 09/21/2008 RAH PHD, ANA A 724.5 BACKACHE 09/21/2008 HELM DO, CHRIS K 724.5 BACKACHE 09/21/2008 MADL TAX LAWYER, JENNY L 724.5 BACKACHE 09/21/2008 MADL TAX LAWYER, JENNY L 724.5 BACKACHE 09/21/2008 BOEJOANN PHD, ANA A 724.5 BACKACHE 09/21/2008 BOEJOANN PHD, ANA A 724.5 BACKACHE 09/21/2008 MADL TAX LAWYER, JENNY L 724.5 BACKACHE 09/21/2008 MADL TAX LAWYER, JENNY L 724.5 BACKACHE 09/21/2008 HELM DO, [...] Screening Examination For Venereal Disease 11/03/2008 MADL TAX LAWYER, JENNY L V74.5 Screening Examination For Venereal Disease 11/03/2008 BOEDBOUT PHD, ANA A V74.5 Screening Examination For Venereal Disease 11/03/2008 BOEDBOUT PHD, ANA A V74.5 Screening Examination For Venereal Disease 11/03/2008 MADL TAX LAWYER, JENNY L V74.5 Screening Examination For Venereal Disease 11/03/2008 JENSEN TREVINO, GWEN V74.5 Screening Examination For Venereal Disease 11/03/2008 BOEDBOUT PHD, ANA A V74.5 Screening Examination For Venereal Disease 11/03/2008 BOEDBOUT PHD, ANA A V74.5 Screening Examination For Venereal Disease 11/03/2008 BOEDBOUT PHD, ANA A V74.5 Screening Examination For Venereal Disease 11/03/2008 MADL TAX LAWYER, JENNY L V74.5 Screening Examination For Venereal Disease 11/03/2008 BOEDBOUT PHD, ANA A V74.5 Screening Examination For Venereal Disease 11/03/2008 BOEDBOUT PHD, ANA A V74.5 Screening Examination For Venereal Disease 11/03/2008 MADL TAX LAWYER, JENNY L V74.5 Screening Examination For Venereal Disease 11/03/2008 BOEJOANN PHD, ANA A V74.5 Screening Examination For Venereal Disease 11/03/2008 HELM DO, CHRIS K V74.5 Screening Examination For Venereal Disease 11/03/2008 MADL TAX LAWYER, JENNY L V74.5 Screening Examination For Venereal Disease 11/03/2008 MADL TAX LAWYER, JENNY L V74.5 Screening Examination For Venereal [...] APRN A 616.10 Bacterial Vaginosis 11/17/2008 ZAIRE MANAGER METROLOGY, CAMMY B 054.10 HERPES SIMPLEX TYPE II 11/17/2008 ZAIRE MANAGER METROLOGY, CAMMY B 462 Pharyngitis Acute 11/17/2008 ZAIRE MANAGER METROLOGY, CAMMY B 465.9 Upper Respiratory Infection 11/17/2008 ZAIRE MANAGER METROLOGY, CAMMY B 616.10 Bacterial Vaginosis 11/17/2008 HELM [...] ANA Servin 616.10 Bacterial Vaginosis 11/17/2008 ALISA TAX LAWYER, DOMENIC A 054.10 HERPES SIMPLEX TYPE II 11/17/2008 ALISA TAX LAWYER, DOMENIC A 462 Pharyngitis Acute 11/17/2008 ALISA TAX LAWYER, DOMENIC A 465.9 Upper Respiratory Infection 11/17/2008 ALISA TAX LAWYER, DOMENIC A 616.10 Bacterial Vaginosis 11/17/2008 MADL TAX LAWYER, JENNY L 054.10 HERPES SIMPLEX TYPE II 11/17/2008 MADL TAX LAWYER, JENNY L 462 Pharyngitis Acute 11/17/2008 MADL TAX LAWYER, JENNY L 465.9 Upper Respiratory Infection 11/17/2008 MADL TAX LAWYER, JENNY L 616.10 Bacterial Vaginosis 11/17/2008 ANA MONREAL PHD 054.10 HERPES SIMPLEX TYPE II 11/17/2008 NAA MONREAL PHD 462 Pharyngitis Acute 11/17/2008 ANA MONREAL PHD 465.9 Upper Respiratory Infection 11/17/2008 ANA MONREAL PHD 616.10 Bacterial Vaginosis 11/17/2008 BOEKHOUT PHD, ANA A 054.10 HERPES SIMPLEX TYPE II 11/17/2008 RAH PHD, ANA A 462 Pharyngitis Acute 11/17/2008 RAH PHD, ANA A 465.9 Upper Respiratory Infection 11/17/2008 BOEJOANN PHD, ANA A 616.10 Bacterial Vaginosis 11/17/2008 MADL TAX LAWYER, JENNY L 054.10 HERPES SIMPLEX TYPE II 11/17/2008 MADL TAX LAWYER, JENNY L 462 Pharyngitis Acute 11/17/2008 MADL TAX LAWYER, JENNY L 465.9 Upper Respiratory Infection 11/17/2008 MADL TAX LAWYER, JENNY L 616.10 Bacterial Vaginosis 11/17/2008 JENSEN [...] ANA A 616.10 Bacterial Vaginosis 11/17/2008 MADL TAX LAWYER, JENNY L 054.10 HERPES SIMPLEX TYPE II 11/17/2008 MADL TAX LAWYER, JENNY L 462 Pharyngitis Acute 11/17/2008 MADL TAX LAWYER, JENNY L 465.9 Upper Respiratory Infection 11/17/2008 MADL TAX LAWYER, JENNY L 616.10 Bacterial Vaginosis 11/17/2008 BOEJOANN [...] ANA A 616.10 Bacterial Vaginosis 11/17/2008 MADL TAX LAWYER, JENNY L 054.10 HERPES SIMPLEX TYPE II 11/17/2008 MADL TAX LAWYER, JENNY L 462 Pharyngitis Acute 11/17/2008 MADL TAX LAWYER, JENNY L 465.9 Upper Respiratory Infection 11/17/2008 MADL TAX LAWYER, JENNY L 616.10 Bacterial Vaginosis 11/17/2008 BOEJOANN [...] CHRIS K 616.10 Bacterial Vaginosis 11/17/2008 MADL TAX LAWYER, JENNY L 054.10 HERPES SIMPLEX TYPE II 11/17/2008 MADL TAX LAWYER, JENNY L 462 Pharyngitis Acute 11/17/2008 MADL TAX LAWYER, JENNY L 465.9 Upper Respiratory Infection 11/17/2008 MADL TAX LAWYER, JENNY L 616.10 Bacterial Vaginosis 11/17/2008 MADL TAX LAWYER, JENNY L 054.10 HERPES SIMPLEX TYPE II 11/17/2008 MADL TAX LAWYER, JENNY L 462 Pharyngitis Acute 11/17/2008 MADL TAX LAWYER, JENNY L 465.9 Upper Respiratory Infection 11/17/2008 MADL TAX LAWYER, JENNY L 616.10 Bacterial Vaginosis 11/17/2008 RAH [...] PHD, ANA A 616.10 Bacterial Vaginosis 11/17/2008 [facility] TAX LAWYER, JENNY L 054.10 HERPES SIMPLEX TYPE II 11/17/2008 MAD TAX LAWYER, JENNY L 462 Pharyngitis Acute 11/17/2008 MADL TAX LAWYER, JENNY L 465.9 Upper Respiratory Infection 11/17/2008 MADL TAX LAWYER, JENNY L 616.10 Bacterial Vaginosis 11/17/2008 MADL TAX LAWYER, JENNY L 054.10 HERPES SIMPLEX TYPE II 11/17/2008 MADL TAX LAWYER, JENNY L 462 Pharyngitis Acute 11/17/2008 MADL TAX LAWYER, JENNY L 465.9 Upper Respiratory Infection 11/17/2008 MADL TAX LAWYER, JENNY L 616.10 Bacterial Vaginosis 11/17/2008 CHRIS [...] Servin V05.9 IMMUNIZATION, SINGLE, UNSPEC. 01/04/2009 MADL TAX LAWYER, JENNY L V05.9 IMMUNIZATION, SINGLE, UNSPEC. 01/04/2009 JENSEN TREVINO, GWEN V05.9 IMMUNIZATION, SINGLE, UNSPEC. 01/04/2009 [facility] PHD, ANA A V05.9 IMMUNIZATION, SINGLE, UNSPEC. 01/04/2009 [facility] PHD, ANA A V05.9 IMMUNIZATION, SINGLE, UNSPEC. 01/04/2009 [facility] PHD, ANA A V05.9 IMMUNIZATION, SINGLE, UNSPEC. 01/04/2009 MADL TAX LAWYER, JENNY L V05.9 IMMUNIZATION, SINGLE, UNSPEC. 01/04/2009 [facility] PHD, ANA A V05.9 IMMUNIZATION, SINGLE, UNSPEC. 01/04/2009 [facility] PHD, ANA A V05.9 IMMUNIZATION, SINGLE, UNSPEC. 01/04/2009 MADL TAX LAWYER, JENNY L V05.9 IMMUNIZATION, SINGLE, UNSPEC. 01/04/2009 [facility] PHD, ANA A V05.9 IMMUNIZATION, SINGLE, UNSPEC. 01/04/2009 HELM DO, CHRIS K V05.9 IMMUNIZATION, SINGLE, UNSPEC. 01/04/2009 MADL TAX LAWYER, JENNY L V05.9 IMMUNIZATION, SINGLE, UNSPEC. 01/04/2009 MADL TAX LAWYER, JENNY L V05.9 IMMUNIZATION, SINGLE, UNSPEC. 01/04/2009 [facility] PHD, ANA A V05.9 IMMUNIZATION, SINGLE, UNSPEC. 01/04/2009 [facility] PHD, ANA A V05.9 IMMUNIZATION, SINGLE, UNSPEC. 01/04/2009 MADL TAX LAWYER, JENNY L V05.9 IMMUNIZATION, SINGLE, UNSPEC. 01/04/2009 MADL TAX LAWYER, JENNY L V05.9 IMMUNIZATION, SINGLE, UNSPEC. 01/04/2009 [...] DO, CHRIS K 729.2 RADICULOPATHY 03/30/2009 ALISA TAX LAWYER, DOMENIC A 729.2 RADICULOPATHY 03/30/2009 ZAIRE SWIFT, CAMMY B 729.2 RADICULOPATHY 03/30/2009 HELM DO, CHRIS K 729.2 RADICULOPATHY 03/30/2009 RAH PHD, ANA A 729.2 RADICULOPATHY 03/30/2009 ALISA TAX LAWYER, DOMENIC A 729.2 RADICULOPATHY 03/30/2009 MAD TAX LAWYER, JENNY L 729.2 RADICULOPATHY 03/30/2009 RAH PHD, ANA A 729.2 RADICULOPATHY 03/30/2009 RAH PHD, ANA A 729.2 RADICULOPATHY 03/30/2009 MAD TAX LAWYER, JENNY L 729.2 RADICULOPATHY 03/30/2009 GWEN STYLES MD 729.2 RADICULOPATHY 03/30/2009 RAH PHD, ANA A 729.2 RADICULOPATHY 03/30/2009 RAH PHD, ANA A 729.2 RADICULOPATHY 03/30/2009 RAH PHD, ANA A 729.2 RADICULOPATHY 03/30/2009 MADL TAX LAWYER, JENNY L 729.2 RADICULOPATHY 03/30/2009 RAH PHD, ANA A 729.2 RADICULOPATHY 03/30/2009 RAH PHD, ANA A 729.2 RADICULOPATHY 03/30/2009 MADL TAX LAWYER, JENNY L 729.2 RADICULOPATHY 03/30/2009 RAH PHD, ANA A 729.2 RADICULOPATHY 03/30/2009 HELM DO, CHRIS K 729.2 RADICULOPATHY 03/30/2009 MADL TAX LAWYER, JENNY L 729.2 RADICULOPATHY 03/30/2009 MADL TAX LAWYER, JENNY L 729.2 RADICULOPATHY 03/30/2009 RAH PHD, ANA A 729.2 RADICULOPATHY 03/30/2009 RAH PHD, ANA A 729.2 RADICULOPATHY 03/30/2009 MADL TAX LAWYER, JENNY L 729.2 RADICULOPATHY 03/30/2009 MADL TAX LAWYER, JENNY L 729.2 RADICULOPATHY 03/30/2009 HELM DO, [...] CHRIS K 461.9 Sinusitis Acute 07/25/2009 ALISA TAX LAWYER, DOMENIC A 296.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 07/25/2009 ALISA TAX LAWYER, DOMENIC A 461.9 Sinusitis Acute 07/25/2009 ZAIRE MANAGER METROLOGY, CAMMY B 296.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 07/25/2009 ZAIRE MANAGER METROLOGY, CAMMY B 461.9 Sinusitis Acute 07/25/2009 HELM DO, CHRIS K 296.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 07/25/2009 HELM DO, CHRIS K 461.9 Sinusitis Acute 07/25/2009 ANA MONREAL PHD A 296.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 07/25/2009 ANA MNOREAL PHD A 461.9 Sinusitis Acute 07/25/2009 ALISA TAX LAWYER, DOMENIC A 296.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 07/25/2009 ALISA TAX LAWYER, DOMENIC A 461.9 Sinusitis Acute 07/25/2009 MADL TAX LAWYER, JENNY L 296.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 07/25/2009 MADL TAX LAWYER, JENNY L 461.9 Sinusitis Acute 07/25/2009 ANA MONREAL PHD A 296.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 07/25/2009 ANA MONREAL PHD A 461.9 Sinusitis Acute 07/25/2009 ANA MONREAL PHD A 296.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 07/25/2009 ANA MONREAL PHD A 461.9 Sinusitis Acute 07/25/2009 MADL TAX LAWYER, JENNY L 296.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 07/25/2009 MADL TAX LAWYER, JENNY L 461.9 Sinusitis Acute 07/25/2009 GWEN [...] PHD A 461.9 Sinusitis Acute 07/25/2009 MADL TAX LAWYER, JENNY L 296.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 07/25/2009 MADL TAX LAWYER, JENNY L 461.9 Sinusitis Acute 07/25/2009 ANA MONREAL PHD A 296.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 07/25/2009 ANA MONREAL PHD 461.9 Sinusitis Acute 07/25/2009 ANA MONREAL PHD A 296.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 07/25/2009 ANA MONREAL PHD 461.9 Sinusitis Acute 07/25/2009 MADL TAX LAWYER, JENNY L 296.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 07/25/2009 MADL TAX LAWYER, JENNY L 461.9 Sinusitis Acute 07/25/2009 ANA MONREAL PHD A 296.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 07/25/2009 ANA MONREAL PHD A 461.9 Sinusitis Acute 07/25/2009 HELM DO, CHRIS K 296.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 07/25/2009 HELM DO, CHRIS K 461.9 Sinusitis Acute 07/25/2009 MADL TAX LAWYER, JENNY L 296.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 07/25/2009 MADL TAX LAWYER, JENNY L 461.9 Sinusitis Acute 07/25/2009 MADL TAX LAWYER, JENNY L 296.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 07/25/2009 MADL TAX LAWYER, JENNY L 461.9 Sinusitis Acute 07/25/2009 ANA MONREAL PHD A 296.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 07/25/2009 ANA MONREAL PHD 461.9 Sinusitis Acute 07/25/2009 RAH SIFUENTES ANA Servin 296.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 07/25/2009 RAH SIFUENTES, ANA A 461.9 Sinusitis Acute 07/25/2009 MADL TAX LAWYER, JENNY L 296.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 07/25/2009 MADL TAX LAWYER, JENNY L 461.9 Sinusitis Acute 07/25/2009 MADL TAX LAWYER, JENNY L 296.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 07/25/2009 MADL TAX LAWYER, JENNY L 461.9 Sinusitis Acute 07/25/2009 HELM DO CHRIS [...] 296.30 MO DEPRESSIVE RECURRENT UNSPECIFIED 07/28/2009 ZAIRE MANAGER METROLOGY, CAMMY B 300.00 anxiety 07/28/2009 ZAIREPENNY SWIFT, CAMMY B 307.47 SI DYSSOMNIA NOS 07/28/2009 ZAIRE MANAGER METROLOGY, CAMMY B 316 PF PSYCHIC FACTORS MED [...] 07/28/2009 TIMI SANTOS MD 300.00 anxiety 07/28/2009 ITMI SANTOS MD 307.47 SI DYSSOMNIA NOS 07/28/2009 [...] QUIROZN, DOMENIC A 300.00 anxiety 07/28/2009 ALISA TAX LAWYER, DOMENIC A 307.47 SI DYSSOMNIA NOS 07/28/2009 ALISA QUIROZN, DOMENIC A 316 PF PSYCHIC FACTORS MED COND 07/28/2009 ZAIRE MANAGER METROLOGY, CAMYM B 296.30 MO DEPRESSIVE RECURRENT UNSPECIFIED 07/28/2009 ZAIRE MANAGER METROLOGY, CAMMY B 300.00 anxiety 07/28/2009 ZAIRE MANAGER METROLOGY, CAMMY B 307.47 SI DYSSOMNIA NOS 07/28/2009 ZAIRE MANAGER METROLOGY, CAMMY B 316 PF PSYCHIC FACTORS MED [...] PF PSYCHIC FACTORS MED COND 07/28/2009 MADL TAX LAWYER, JENNY L 296.30 MO DEPRESSIVE RECURRENT UNSPECIFIED 07/28/2009 MADL TAX LAWYER, JENNY L 300.00 anxiety 07/28/2009 MADL TAX LAWYER, JENNY L 307.47 SI DYSSOMNIA NOS 07/28/2009 MADL TAX LAWYER, JENNY L 316 PF PSYCHIC FACTORS MED [...] PF PSYCHIC FACTORS MED COND 07/28/2009 MADL TAX LAWYER, JENNY L 296.30 MO DEPRESSIVE RECURRENT UNSPECIFIED 07/28/2009 MADL TAX LAWYER, JENNY L 300.00 anxiety 07/28/2009 MADL TAX LAWYER, JENNY L 307.47 SI DYSSOMNIA NOS 07/28/2009 MADL TAX LAWYER, JENNY L 316 PF PSYCHIC FACTORS MED [...] PSYCHIC FACTORS MED COND 07/28/2009 BOEDBOUT PHD, NAA A 296.30 MO DEPRESSIVE RECURRENT UNSPECIFIED 07/28/2009 [...] PF PSYCHIC FACTORS MED COND 07/28/2009 MADL TAX LAWYER, JENNY L 296.30 MO DEPRESSIVE RECURRENT UNSPECIFIED 07/28/2009 MADL TAX LAWYER, JENNY L 300.00 anxiety 07/28/2009 MADL TAX LAWYER, JENNY L 307.47 SI DYSSOMNIA NOS 07/28/2009 MADL TAX LAWYER, JENNY L 316 PF PSYCHIC FACTORS MED COND 07/28/2009 RAH PHD, ANA A 296.30 MO DEPRESSIVE RECURRENT UNSPECIFIED 07/28/2009 RHA PHD, ANA A 300.00 anxiety 07/28/2009 RAH SIFUENTES, ANA Servin 307.47 SI DYSSOMNIA NOS 07/28/2009 RAH PHD, ANA A 316 PF PSYCHIC FACTORS MED COND 07/28/2009 RAH SIUFENTES, ANA A 296.30 MO DEPRESSIVE RECURRENT UNSPECIFIED 07/28/2009 RAH SIFUENTES, ANA Servin 300.00 anxiety 07/28/2009 RAH PHD, ANA Servin 307.47 SI DYSSOMNIA NOS 07/28/2009 RAH PHD, ANA A 316 PF PSYCHIC FACTORS MED COND 07/28/2009 MADL TAX LAWYER, JENNY L 296.30 MO DEPRESSIVE RECURRENT UNSPECIFIED 07/28/2009 MADL TAX LAWYER, JENNY L 300.00 anxiety 07/28/2009 MADL TAX LAWYER, JENNY L 307.47 SI DYSSOMNIA NOS 07/28/2009 MADL TAX LAWYER, JENNY L 316 PF PSYCHIC FACTORS MED [...] K 307.47 SI DYSSOMNIA NOS 07/28/2009 CHRIS HLEM DO 316 PF PSYCHIC FACTORS MED COND 07/28/2009 MADL TAX LAWYER, JENNY L 296.30 MO DEPRESSIVE RECURRENT UNSPECIFIED 07/28/2009 MADL TAX LAWYER, JENNY L 300.00 anxiety 07/28/2009 MADL TAX LAWYER, JENNY L 307.47 SI DYSSOMNIA NOS 07/28/2009 MADL TAX LAWYER, JENNY L 316 PF PSYCHIC FACTORS MED COND 07/28/2009 MADL TAX LAWYER, JENNY L 296.30 MO DEPRESSIVE RECURRENT UNSPECIFIED 07/28/2009 MADL TAX LAWYER, JENNY L 300.00 anxiety 07/28/2009 MADL TAX LAWYER, JENNY L 307.47 SI DYSSOMNIA NOS 07/28/2009 MADL TAX LAWYER, JENNY L 316 PF PSYCHIC FACTORS MED [...] PF PSYCHIC FACTORS MED COND 07/28/2009 MADL TAX LAWYER, JENNY L 296.30 MO DEPRESSIVE RECURRENT UNSPECIFIED 07/28/2009 MADL TAX LAWYER, JENNY L 300.00 anxiety 07/28/2009 M[employer] TAX LAWYER, JENNY L 307.47 SI DYSSOMNIA NOS 07/28/2009 MAD[employer] TAX LAWYER, JENNY L 316 PF PSYCHIC FACTORS MED COND 07/28/2009 MAD[employer] TAX LAWYER, JENNY L 296.30 MO DEPRESSIVE RECURRENT UNSPECIFIED 07/28/2009 M[employer] TAX LAWYER, JENNY L 300.00 anxiety 07/28/2009 MAD[employer] TAX LAWYER, JENNY L 307.47 SI DYSSOMNIA NOS 07/28/2009 MAD[employer] TAX LAWYER, JENNY L 316 PF PSYCHIC FACTORS MED COND 07/28/2009 HELM CHRIS CHENG K 296.30 MO DEPRESSIVE RECURRENT UNSPECIFIED 07/28/2009 [...] AN PANIC DIS W/O AGORA 08/31/2009 MAD[employer] TAX LAWYER, JENNY L 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 08/31/2009 MAD[employer] TAX LAWYER, JENNY L 300.01 AN PANIC DIS W/O AGORA 08/31/2009 ANA MONREAL PHD 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 08/31/2009 ANA MONREAL PHD 300.01 AN PANIC DIS W/O AGORA 08/31/2009 ANA MONREAL PHD 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 08/31/2009 BOEKHOUT PHD, ANA A 300.01 AN PANIC DIS W/O AGORA 08/31/2009 MADL TAX LAWYER, JENNY L 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 08/31/2009 MADL TAX LAWYER, JENNY L 300.01 AN PANIC DIS W/O AGORA 08/31/2009 JENSEN TREVINO, GWEN 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 [...] AN PANIC DIS W/O AGORA 08/31/2009 MADL TAX LAWYER, JENNY L 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 08/31/2009 MADL TAX LAWYER, JENNY L 300.01 AN PANIC DIS W/O AGORA 08/31/2009 RAH SIFUENTES, ANA A 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 08/31/2009 RAH SIFUENTES, ANA A 300.01 AN PANIC DIS W/O AGORA 08/31/2009 RAH SIFUENTES, ANA A 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 08/31/2009 MADL TAX LAWYER, JENNY L 300.01 AN PANIC DIS W/O AGORA 08/31/2009 MADL TAX LAWYER, JENNY L 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 08/31/2009 MADL TAX LAWYER, JENNY L 300.01 AN PANIC DIS W/O AGORA 08/31/2009 RAH SIFUENTES, ANA A 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 08/31/2009 RAH PHD, ANA A 300.01 AN PANIC DIS W/O AGORA 08/31/2009 RAH PHD, ANA A 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 08/31/2009 RAH PHD, ANA A 300.01 AN PANIC DIS W/O AGORA 08/31/2009 MADL TAX LAWYER, JENNY L 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69 TAKING HIGH-RISK MEDICATION 11/21/2009 [employer] LAWYER, JENNY L V58.69 TAKING HIGH-RISK MEDICATION 11/21/2009 [employer] LAWYER, JENNY L V58.69 TAKING HIGH-RISK MEDICATION 11/21/2009 RAH PHD, ANA A V58.69 TAKING HIGH-RISK MEDICATION 11/21/2009 RAH PHD, ANA Servin V58.69 TAKING HIGH-RISK MEDICATION 11/21/2009 LU[employer] T[employer] LAWYER, JENNY L V58.69 TAKING HIGH-RISK MEDICATION 11/21/2009 [...] CUELLAR APRN A 787.91 diarrhea 01/05/2010 MADL TAX LAWYER, JENNY L 787.91 diarrhea 01/05/2010 [facility] ANA A 787.91 diarrhea 01/05/2010 [facility] A[facility] A 787.91 diarrhea 01/05/2010 MAD[employer] T[employer] LAWYER, JENNY L 787.91 diarrhea 01/05/2010 JENSEN TREVINO, GWEN 787.91 diarrhea 01/05/2010 [facility] PHD, ANA A 787.91 diarrhea 01/05/2010 [facility] PHD, ANA A 787.91 diarrhea 01/05/2010 [facility] PHD, ANA A 787.91 diarrhea 01/05/2010 M[employer] T[employer] LAWYER, JENNY L 787.91 diarrhea 01/05/2010 [facility], A[facility] A 787.91 diarrhea 01/05/2010 [facility] PHD, ANA A 787.91 diarrhea 01/05/2010 MADL TAX LAWYER, JENNY L 787.91 diarrhea 01/05/2010 RA[facility] PHD, ANA A 787.91 diarrhea 01/05/2010 HELM DO, CHRIS K 787.91 diarrhea 01/05/2010 MADL TAX LAWYER, JENNY L 787.91 diarrhea 01/05/2010 MADL TAX LAWYER, JENNY L 787.91 diarrhea 01/05/2010 [facility], ANA A 787.91 diarrhea 01/05/2010 [facility] PHD, ANA A 787.91 diarrhea 01/05/2010 MADL TAX LAWYER, JENNY L 787.91 diarrhea 01/05/2010 MADL TAX LAWYER, JENNY L 787.91 diarrhea 01/05/2010 HELM DO, [...] APRNIDI A 789.00 abdominal pain 01/17/2010 MADL TAX LAWYER, JENNY L 564.1 IRRITABLE BOWEL SYNDROME 01/17/2010 MADL TAX LAWYER, JENNY L 789.00 abdominal pain 01/17/2010 [facility] PHD, ANA A 564.1 IRRITABLE BOWEL SYNDROME 01/17/2010 [facility] PHD, ANA A 789.00 abdominal pain 01/17/2010 [facility] PHD, ANA A 564.1 IRRITABLE BOWEL SYNDROME 01/17/2010 [facility] PHD, ANA A 789.00 abdominal pain 01/17/2010 MADL TAX LAWYER, JENNY L 564.1 IRRITABLE BOWEL SYNDROME 01/17/2010 MADL TAX LAWYER, JENNY L 789.00 abdominal pain 01/17/2010 JENSEN [...] ANA A 789.00 abdominal pain 01/17/2010 MADL TAX LAWYER, JENNY L 564.1 IRRITABLE BOWEL SYNDROME 01/17/2010 MADL TAX LAWYER, JENNY L 789.00 abdominal pain 01/17/2010 [facility] PHD, ANA A 564.1 IRRITABLE BOWEL SYNDROME 01/17/2010 [facility] PHD, ANA A 789.00 abdominal pain 01/17/2010 [facility] PHD, ANA A 564.1 IRRITABLE BOWEL SYNDROME 01/17/2010 [facility] PHD, ANA A 789.00 abdominal pain 01/17/2010 MADL TAX LAWYER, JENNY L 564.1 IRRITABLE BOWEL SYNDROME 01/17/2010 MADL TAX LAWYER, JENNY L 789.00 abdominal pain 01/17/2010 [facility] PHD, ANA A 564.1 IRRITABLE BOWEL SYNDROME 01/17/2010 [facility] PHD, ANA A 789.00 abdominal pain 01/17/2010 HELM DO, CHRIS K 564.1 IRRITABLE BOWEL SYNDROME 01/17/2010 HELM DO, CHRIS K 789.00 abdominal pain 01/17/2010 MADL TAX LAWYER, JENNY L 564.1 IRRITABLE BOWEL SYNDROME 01/17/2010 MADL TAX LAWYER, JENNY L 789.00 abdominal pain 01/17/2010 MADL TAX LAWYER, JENNY L 564.1 IRRITABLE BOWEL SYNDROME 01/17/2010 MADL TAX LAWYER, JENNY L 789.00 abdominal pain 01/17/2010 [facility] PHD, ANA A 564.1 IRRITABLE BOWEL SYNDROME 01/17/2010 [facility] PHD, ANA A 789.00 abdominal pain 01/17/2010 [facility] PHD, ANA A 564.1 IRRITABLE BOWEL SYNDROME 01/17/2010 [facility] PHD, ANA A 789.00 abdominal pain 01/17/2010 MADL TAX LAWYER, JENNY L 564.1 IRRITABLE BOWEL SYNDROME 01/17/2010 MADL TAX LAWYER, JENNY L 789.00 abdominal pain 01/17/2010 MADL TAX LAWYER, JENNY L 564.1 IRRITABLE BOWEL SYNDROME 01/17/2010 MADL TAX LAWYER, JENNY L 789.00 abdominal pain 01/17/2010 HELM [...] DO, CHRIS K 307.40 INSOMNIA 05/02/2010 ALISA TAX LAWYER, DOMENIC A 307.40 INSOMNIA 05/02/2010 CAMMY TAI LCPC 307.40 INSOMNIA 05/02/2010 HELM DO, CHRIS K 307.40 INSOMNIA 05/02/2010 [facility] PHD, ANA Servin 307.40 INSOMNIA 05/02/2010 ALISA TAX LAWYER, DOMENIC A 307.40 INSOMNIA 05/02/2010 MADL TAX LAWYER, JENNY L 307.40 INSOMNIA 05/02/2010 [facility] PHD, ANA Servin 307.40 INSOMNIA 05/02/2010 [facility] PHD, ANA Servin 307.40 INSOMNIA 05/02/2010 MADL TAX LAWYER, JENNY L 307.40 INSOMNIA 05/02/2010 JENSEN TREVINO, GWEN 307.40 INSOMNIA 05/02/2010 [facility] PHD, ANA Servin 307.40 INSOMNIA 05/02/2010 [facility] PHD, ANA A 307.40 INSOMNIA 05/02/2010 RA[facility] PHD, ANA A 307.40 INSOMNIA 05/02/2010 MADL TAX LAWYER, JENNY L 307.40 INSOMNIA 05/02/2010 [facility] PHD, ANA A 307.40 INSOMNIA 05/02/2010 RA[facility] PHD, ANA A 307.40 INSOMNIA 05/02/2010 MADL TAX LAWYER, JENNY L 307.40 INSOMNIA 05/02/2010 [facility] PHD, ANA Servin 307.40 INSOMNIA 05/02/2010 HELM DO, CHRIS K 307.40 INSOMNIA 05/02/2010 MADL TAX LAWYER, JENNY L 307.40 INSOMNIA 05/02/2010 MADL TAX LAWYER, JENNY L 307.40 INSOMNIA 05/02/2010 [facility] PHD, ANA Servin 307.40 INSOMNIA 05/02/2010 RA[facility] PHD, ANA Servin 307.40 INSOMNIA 05/02/2010 MADL TAX LAWYER, JENNY L 307.40 INSOMNIA 05/02/2010 MADL TAX LAWYER, JENNY L 307.40 INSOMNIA 05/02/2010 HELM DO, [...] ANA A 706.1 OTHER ACNE 07/10/2010 ALISA TAX LAWYER, DOMENIC A 706.1 OTHER ACNE 07/10/2010 MADL TAX LAWYER, JENNY L 706.1 OTHER ACNE 07/10/2010 [facility] PHD, ANA A 706.1 OTHER ACNE 07/10/2010 [facility] PHD, ANA A 706.1 OTHER ACNE 07/10/2010 MADL TAX LAWYER, JENNY L 706.1 OTHER ACNE 07/10/2010 GWEN STYLES MD 706.1 OTHER ACNE 07/10/2010 [facility] PHD, ANA A 706.1 OTHER ACNE 07/10/2010 [facility] PHD, ANA A 706.1 OTHER ACNE 07/10/2010 [facility] PHD, ANA A 706.1 OTHER ACNE 07/10/2010 MADL TAX LAWYER, JENNY L 706.1 OTHER ACNE 07/10/2010 [facility] PHD, ANA A 706.1 OTHER ACNE 07/10/2010 RA[facility] PHD, ANA A 706.1 OTHER ACNE 07/10/2010 MADL TAX LAWYER, JENNY L 706.1 OTHER ACNE 07/10/2010 [facility] PHD, ANA A 706.1 OTHER ACNE 07/10/2010 HELM DO, CHRIS K 706.1 OTHER ACNE 07/10/2010 MADL TAX LAWYER, JENNY L 706.1 OTHER ACNE 07/10/2010 MADL TAX LAWYER, JENNY L 706.1 OTHER ACNE 07/10/2010 RA[facility] PHD, ANA A 706.1 OTHER ACNE 07/10/2010 RA[facility] PHD, ANA A 706.1 OTHER ACNE 07/10/2010 MADL TAX LAWYER, JENNY L 706.1 OTHER ACNE 07/10/2010 MADL TAX LAWYER, JENNY L 706.1 OTHER ACNE 07/10/2010 HELM [...] SANTOS MD 701.9 Skin Tag 07/11/2010 ZAIRE MANAGER METROLOGY, CAMMY B 239.2 Skin Neoplam 07/11/2010 ZAIRE MANAGER METROLOGY, CAMMY B 701.9 Skin Tag 07/11/2010 TIMI [...] CHRIS K 701.9 Skin Tag 07/11/2010 ALISA TAX LAWYER, DOMENIC A 239.2 Skin Neoplam 07/11/2010 ALISA TAX LAWYER, DOMENIC A 701.9 Skin Tag 07/11/2010 ZAIRE MANAGER METROLOGY, CAMMY B 239.2 Skin Neoplam 07/11/2010 ZAIRE MANAGER METROLOGY, CAMMY B 701.9 Skin Tag 07/11/2010 HELM DO, CHRIS K 239.2 Skin Neoplam 07/11/2010 HELM DO, CHRIS K 701.9 Skin Tag 07/11/2010 [facility] PHD, ANA A 239.2 Skin Neoplam 07/11/2010 [facility] PHD, ANA A 701.9 Skin Tag 07/11/2010 ALISA TAX LAWYER, DOMENIC A 239.2 Skin Neoplam 07/11/2010 ALISA TAX LAWYER, DOMENIC A 701.9 Skin Tag 07/11/2010 MADL TAX LAWYER, JENNY L 239.2 Skin Neoplam 07/11/2010 MADL TAX LAWYER, JENNY L 701.9 Skin Tag 07/11/2010 RA[facility] PHD, ANA A 239.2 Skin Neoplam 07/11/2010 RA[facility] PHD, ANA A 701.9 Skin Tag 07/11/2010 RA[facility] PHD, ANA A 239.2 Skin Neoplam 07/11/2010 RA[facility] PHD, ANA A 701.9 Skin Tag 07/11/2010 MADL TAX LAWYER, JENNY L 239.2 Skin Neoplam 07/11/2010 MADL TAX LAWYER, JENNY L 701.9 Skin Tag 07/11/2010 JENSEN [...] ANA A 701.9 Skin Tag 07/11/2010 MADL TAX LAWYER, JENNY L 239.2 Skin Neoplam 07/11/2010 MADL TAX LAWYER, JENNY L 701.9 Skin Tag 07/11/2010 [facility] PHD, ANA A 239.2 Skin Neoplam 07/11/2010 RA[facility] PHD, ANA A 701.9 Skin Tag 07/11/2010 RA[facility] PHD, ANA A 239.2 Skin Neoplam 07/11/2010 RA[facility] PHD, ANA A 701.9 Skin Tag 07/11/2010 MADL TAX LAWYER, JENNY L 239.2 Skin Neoplam 07/11/2010 MADL TAX LAWYER, JENNY L 701.9 Skin Tag 07/11/2010 RA[facility] PHD, ANA A 239.2 Skin Neoplam 07/11/2010 RA[facility] PHD, ANA A 701.9 Skin Tag 07/11/2010 HELM DO, CHRIS K 239.2 Skin Neoplam 07/11/2010 HELM DO, CHRIS K 701.9 Skin Tag 07/11/2010 MADL TAX LAWYER, JENNY L 239.2 Skin Neoplam 07/11/2010 MADL TAX LAWYER, JENNY L 701.9 Skin Tag 07/11/2010 MADL TAX LAWYER, JENNY L 239.2 Skin Neoplam 07/11/2010 MADL TAX LAWYER, JENNY L 701.9 Skin Tag 07/11/2010 [facility] PHD, ANA A 239.2 Skin Neoplam 07/11/2010 RA[facility] PHD, ANA A 701.9 Skin Tag 07/11/2010 [facility] PHD, ANA A 239.2 Skin Neoplam 07/11/2010 [facility] PHD, ANA Servin 701.9 Skin Tag 07/11/2010 MADL TAX LAWYER, JENNY L 239.2 Skin Neoplam 07/11/2010 MADL TAX LAWYER, JENNY L 701.9 Skin Tag 07/11/2010 MADL TAX LAWYER, JENNY L 239.2 Skin Neoplam 07/11/2010 MADL TAX LAWYER, JENNY L 701.9 Skin Tag 07/11/2010 HELM [...] A 338.4 CHRONIC PAIN SYNDROME 08/08/2010 LUCIANO TAX LAWYER, JENNY L 338.4 CHRONIC PAIN SYNDROME 08/08/2010 RAH SIFUENTES, ANA Servin 338.4 CHRONIC PAIN SYNDROME 08/08/2010 RAH SIFUENTES, ANA Servin 338.4 CHRONIC PAIN SYNDROME 08/08/2010 LUCIANO TAX LAWYER, JENNY L 338.4 CHRONIC PAIN SYNDROME 08/08/2010 JENSEN TREVINO, GWEN 338.4 CHRONIC PAIN SYNDROME 08/08/2010 [facility] PHD, ANA A 338.4 CHRONIC PAIN SYNDROME 08/08/2010 [facility] PHD, ANA A 338.4 CHRONIC PAIN SYNDROME 08/08/2010 [facility] PHD, ANA A 338.4 CHRONIC PAIN SYNDROME 08/08/2010 MADL TAX LAWYER, JENNY L 338.4 CHRONIC PAIN SYNDROME 08/08/2010 [facility] PHD, ANA A 338.4 CHRONIC PAIN SYNDROME 08/08/2010 [facility] PHD, ANA A 338.4 CHRONIC PAIN SYNDROME 08/08/2010 MADL TAX LAWYER, JENNY L 338.4 CHRONIC PAIN SYNDROME 08/08/2010 [facility] PHD, ANA A 338.4 CHRONIC PAIN SYNDROME 08/08/2010 HELM DO CHRIS K 338.4 CHRONIC PAIN SYNDROME 08/08/2010 MADL TAX LAWYER, JENNY L 338.4 CHRONIC PAIN SYNDROME 08/08/2010 MADL TAX LAWYER, JENNY L 338.4 CHRONIC PAIN SYNDROME 08/08/2010 [facility] PHD, ANA A 338.4 CHRONIC PAIN SYNDROME 08/08/2010 [facility] PHD, ANA A 338.4 CHRONIC PAIN SYNDROME 08/08/2010 MADL TAX LAWYER, JENNY L 338.4 CHRONIC PAIN SYNDROME 08/08/2010 MADL TAX LAWYER, JENNY L 338.4 CHRONIC PAIN SYNDROME 08/08/2010 [...] SANTOS MD 346.90 MIGRAINE HEADACHE 10/09/2010 ZAIRE MANAGER METROLOGY, CAMMY B 307.81 HEADACHE, TENSION 10/09/2010 ZAIRE MANAGER METROLOGY, CAMMY B 346.90 MIGRAINE HEADACHE 10/09/2010 TOM TREVINO, TIMI 307.81 HEADACHE, TENSION 10/09/2010 TOM TREVINO, TIMI 346.90 MIGRAINE HEADACHE 10/09/2010 TOM TREVINO, TIMI 307.81 HEADACHE, TENSION 10/09/2010 TOM TREVINO, TIMI 346.90 MIGRAINE HEADACHE 10/09/2010 TOM TREVINO, TIMI 307.81 HEADACHE, TENSION 10/09/2010 TMO TREVINO, TIMI 346.90 MIGRAINE HEADACHE 10/09/2010 TOM TREVINO, TIMI 307.81 HEADACHE, TENSION 10/09/2010 TOM TREVINO, ITMI 346.90 MIGRAINE HEADACHE 10/09/2010 TOM TREVINO, TIMI 307.81 HEADACHE, TENSION 10/09/2010 TOM TREVINO, TIMI 346.90 MIGRAINE HEADACHE 10/09/2010 HELM DO, CHRIS K 307.81 HEADACHE, TENSION 10/09/2010 HELM DO, CHRIS K 346.90 MIGRAINE HEADACHE 10/09/2010 ALISA TAX LAWYER, DOMENIC A 307.81 HEADACHE, TENSION 10/09/2010 ALISA TAX LAWYER, DOMENIC A 346.90 MIGRAINE HEADACHE 10/09/2010 ZAIRE MANAGER METROLOGY, CAMMY B 307.81 HEADACHE, TENSION 10/09/2010 ZAIRE MANAGER METROLOGY, CAMMY B 346.90 MIGRAINE HEADACHE 10/09/2010 HELM DO, CHRIS K 307.81 HEADACHE, TENSION 10/09/2010 HELM DO, CHRIS K 346.90 MIGRAINE HEADACHE 10/09/2010 RA[facility] PHD, ANA A 307.81 HEADACHE, TENSION 10/09/2010 RA[facility] PHD, ANA A 346.90 MIGRAINE HEADACHE 10/09/2010 ALISA TAX LAWYER, DOMENIC A 307.81 HEADACHE, TENSION 10/09/2010 ALISA TAX LAWYER, DOMENIC A 346.90 MIGRAINE HEADACHE 10/09/2010 MADL TAX LAWYER, JENNY L 307.81 HEADACHE, TENSION 10/09/2010 MADL TAX LAWYER, JENNY L 346.90 MIGRAINE HEADACHE 10/09/2010 RA[facility] PHD, ANA A 307.81 HEADACHE, TENSION 10/09/2010 [facility] PHD, ANA A 346.90 MIGRAINE HEADACHE 10/09/2010 [facility] PHD, ANA A 307.81 HEADACHE, TENSION 10/09/2010 [facility] PHD, ANA A 346.90 MIGRAINE HEADACHE 10/09/2010 MADL TAX LAWYER, JENNY L 307.81 HEADACHE, TENSION 10/09/2010 MADL TAX LAWYER, JENNY L 346.90 MIGRAINE HEADACHE 10/09/2010 JENSEN [...] ANA A 346.90 MIGRAINE HEADACHE 10/09/2010 MADL TAX LAWYER, JENNY L 307.81 HEADACHE, TENSION 10/09/2010 MADL TAX LAWYER, JENNY L 346.90 MIGRAINE HEADACHE 10/09/2010 [facility] PHD, ANA A 307.81 HEADACHE, TENSION 10/09/2010 [facility] PHD, ANA A 346.90 MIGRAINE HEADACHE 10/09/2010 [facility] PHD, ANA A 307.81 HEADACHE, TENSION 10/09/2010 [facility] PHD, ANA A 346.90 MIGRAINE HEADACHE 10/09/2010 MADL TAX LAWYER, JENNY L 307.81 HEADACHE, TENSION 10/09/2010 MADL TAX LAWYER, JENNY L 346.90 MIGRAINE HEADACHE 10/09/2010 [facility] PHD, ANA A 307.81 HEADACHE, TENSION 10/09/2010 [facility] PHD, ANA A 346.90 MIGRAINE HEADACHE 10/09/2010 HELM DO, CHIRS K 307.81 HEADACHE, TENSION 10/09/2010 HELM DO, CHRIS K 346.90 MIGRAINE HEADACHE 10/09/2010 MADL TAX LAWYER, JENNY L 307.81 HEADACHE, TENSION 10/09/2010 MADL TAX LAWYER, JENNY L 346.90 MIGRAINE HEADACHE 10/09/2010 MADL TAX LAWYER, JENNY L 307.81 HEADACHE, TENSION 10/09/2010 MADL TAX LAWYER, JENNY L 346.90 MIGRAINE HEADACHE 10/09/2010 [facility] PHD, ANA A 307.81 HEADACHE, TENSION 10/09/2010 [facility] PHD, ANA A 346.90 MIGRAINE HEADACHE 10/09/2010 [facility] PHD, ANA A 307.81 HEADACHE, TENSION 10/09/2010 [facility] PHD, ANA A 346.90 MIGRAINE HEADACHE 10/09/2010 MADL TAX LAWYER, JENNY L 307.81 HEADACHE, TENSION 10/09/2010 MADL TAX LAWYER, JENNY L 346.90 MIGRAINE HEADACHE 10/09/2010 MADL TAX LAWYER, JENYN L 307.81 HEADACHE, TENSION 10/09/2010 MADL TAX LAWYER, JENNY L 346.90 MIGRAINE HEADACHE 10/09/2010 HELM [...] 465.9 Upper Respiratory Infection 10/16/2010 ALISA FAZAL DOMENCI A 465.9 Upper Respiratory Infection 10/16/2010 MADL TAX LAWYER, JENNY L 465.9 Upper Respiratory Infection 10/16/2010 [facility] PHD, ANA A 465.9 Upper Respiratory Infection 10/16/2010 [facility] PHD, ANA A 465.9 Upper Respiratory Infection 10/16/2010 MADL TAX LAWYER, JENNY L 465.9 Upper Respiratory Infection 10/16/2010 JENSEN TREVINO, GWEN 465.9 Upper Respiratory Infection 10/16/2010 [facility] PHD, ANA A 465.9 Upper Respiratory Infection 10/16/2010 [facility] PHD, ANA A 465.9 Upper Respiratory Infection 10/16/2010 [facility] PHD, ANA A 465.9 Upper Respiratory Infection 10/16/2010 MADL TAX LAWYER, JENNY L 465.9 Upper Respiratory Infection 10/16/2010 [facility] PHD, ANA A 465.9 Upper Respiratory Infection 10/16/2010 [facility] PHD, ANA A 465.9 Upper Respiratory Infection 10/16/2010 MADL TAX LAWYER, JENNY L 465.9 Upper Respiratory Infection 10/16/2010 [facility] PHD, ANA A 465.9 Upper Respiratory Infection 10/16/2010 HELM DO, CHRIS K 465.9 Upper Respiratory Infection 10/16/2010 MADL TAX LAWYER, JENNY L 465.9 Upper Respiratory Infection 10/16/2010 MADL TAX LAWYER, JENNY L 465.9 Upper Respiratory Infection 10/16/2010 [facility] PHD, ANA A 465.9 Upper Respiratory Infection 10/16/2010 [facility] PHD, ANA A 465.9 Upper Respiratory Infection 10/16/2010 MADL TAX LAWYER, JENNY L 465.9 Upper Respiratory Infection 10/16/2010 MADL TAX LAWYER, JENNY L 465.9 Upper Respiratory Infection 10/16/2010 [...] CHRIS K 466.0 Bronchitis, Acute 10/23/2010 ALISA TAX LAWYER, DOMENIC A 466.0 Bronchitis, Acute 10/23/2010 ZAIRE SWIFT, CAMMY Maldonado 466.0 Bronchitis, Acute 10/23/2010 HELM DO, CHRIS K 466.0 Bronchitis, Acute 10/23/2010 [facility] PHD, ANA A 466.0 Bronchitis, Acute 10/23/2010 ALISA TAX LAWYER, DOMENIC A 466.0 Bronchitis, Acute 10/23/2010 MADL TAX LAWYER, JENNY L 466.0 Bronchitis, Acute 10/23/2010 [facility] PHD, ANA A 466.0 Bronchitis, Acute 10/23/2010 [facility] PHD, ANA A 466.0 Bronchitis, Acute 10/23/2010 MADL TAX LAWYER, JENNY L 466.0 Bronchitis, Acute 10/23/2010 JENSEN TREVINO, GWEN 466.0 Bronchitis, Acute 10/23/2010 [facility] PHD, ANA A 466.0 Bronchitis, Acute 10/23/2010 [facility] PHD, ANA A 466.0 Bronchitis, Acute 10/23/2010 [facility] PHD, ANA A 466.0 Bronchitis, Acute 10/23/2010 MADL TAX LAWYER, JENNY L 466.0 Bronchitis, Acute 10/23/2010 [facility] PHD, ANA A 466.0 Bronchitis, Acute 10/23/2010 [facility] PHD, ANA A 466.0 Bronchitis, Acute 10/23/2010 MADL TAX LAWYER, JENNY L 466.0 Bronchitis, Acute 10/23/2010 [facility] PHD, ANA A 466.0 Bronchitis, Acute 10/23/2010 HELM DO, CHRIS K 466.0 Bronchitis, Acute 10/23/2010 MADL TAX LAWYER, JENNY L 466.0 Bronchitis, Acute 10/23/2010 MADL TAX LAWYER, JENNY L 466.0 Bronchitis, Acute 10/23/2010 [facility] PHD, ANA A 466.0 Bronchitis, Acute 10/23/2010 RA[facility] PHD, ANA A 466.0 Bronchitis, Acute 10/23/2010 MADL TAX LAWYER, JENNY L 466.0 Bronchitis, Acute 10/23/2010 MADL TAX LAWYER, JENNY L 466.0 Bronchitis, Acute 10/23/2010 MYNOR [...] K 728.71 Plantar Fascial Fibromatosis 04/17/2011 ALISA TAX LAWYER DOMENIC A 691.8 Dermatitis Atopic Eczema 04/17/2011 ALISA TAX LAWYER, DOMENIC A 728.71 Plantar Fascial Fibromatosis 04/17/2011 ZAIRE MANAGER METROLOGY CAMMY B 691.8 Dermatitis Atopic Eczema 04/17/2011 ZAIRE MANAGER METROLOGY CAMMY B 728.71 Plantar Fascial Fibromatosis 04/17/2011 HELM DO, CHRIS K 691.8 Dermatitis Atopic Eczema 04/17/2011 HELM DO, CHRIS K 728.71 Plantar Fascial Fibromatosis 04/17/2011 RA[facility] PHD, ANA A 691.8 Dermatitis Atopic Eczema 04/17/2011 RA[facility] PHD, ANA Servin 728.71 Plantar Fascial Fibromatosis 04/17/2011 ALISA DIEHL DOMENIC A 691.8 Dermatitis Atopic Eczema 04/17/2011 SUSHIL CUELLAR APRNIDI A 728.71 Plantar Fascial Fibromatosis 04/17/2011 MADL TAX LAWYER, JENNY L 691.8 Dermatitis Atopic Eczema 04/17/2011 MADL TAX LAWYER, JENNY L 728.71 Plantar Fascial Fibromatosis 04/17/2011 RAH SIFUENTES, ANA A 691.8 Dermatitis Atopic Eczema 04/17/2011 RAH SIFUENTES, ANA A 728.71 Plantar Fascial Fibromatosis 04/17/2011 RAH SIFUENTES, ANA A 691.8 Dermatitis Atopic Eczema 04/17/2011 RAH SIFUENTES, ANA Servin 728.71 Plantar Fascial Fibromatosis 04/17/2011 MADL TAX LAWYER, JENNY L 691.8 Dermatitis Atopic Eczema 04/17/2011 MADL TAX LAWYER, JENNY L 728.71 Plantar Fascial Fibromatosis 04/17/2011 [...] Servin 728.71 Plantar Fascial Fibromatosis 04/17/2011 MADL TAX LAWYER, JENNY L 691.8 Dermatitis Atopic Eczema 04/17/2011 MADL TAX LAWYER, JENNY L 728.71 Plantar Fascial Fibromatosis 04/17/2011 RAH SIFUENTES, ANA A 691.8 Dermatitis Atopic Eczema 04/17/2011 RAH SIFUENTES, ANA Servin 728.71 Plantar Fascial Fibromatosis 04/17/2011 RAH SIFUENTES, ANA A 691.8 Dermatitis Atopic Eczema 04/17/2011 RAH SIFUENTES, ANA Servin 728.71 Plantar Fascial Fibromatosis 04/17/2011 MADL TAX LAWYER, JENNY L 691.8 Dermatitis Atopic Eczema 04/17/2011 MADL TAX LAWYER, JENNY L 728.71 Plantar Fascial Fibromatosis 04/17/2011 ANA MONREAL PHD A 691.8 Dermatitis Atopic Eczema 04/17/2011 ANA MONREAL PHD 728.71 Plantar Fascial Fibromatosis 04/17/2011 HELM DO, CHRIS K 691.8 Dermatitis Atopic Eczema 04/17/2011 HELM DO, CHRIS K 728.71 Plantar Fascial Fibromatosis 04/17/2011 MADL TAX LAWYER, JENNY L 691.8 Dermatitis Atopic Eczema 04/17/2011 MADL TAX LAWYER, JENNY L 728.71 Plantar Fascial Fibromatosis 04/17/2011 MADL TAX LAWYER, JENNY L 691.8 Dermatitis Atopic Eczema 04/17/2011 MADL TAX LAWYER, JENNY L 728.71 Plantar Fascial Fibromatosis 04/17/2011 RAH PHD, ANA A 691.8 Dermatitis Atopic Eczema 04/17/2011 [facility] PHD, ANA A 728.71 Plantar Fascial Fibromatosis 04/17/2011 [facility] PHD, ANA A 691.8 Dermatitis Atopic Eczema 04/17/2011 [facility] PH[facility], ANA A 728.71 Plantar Fascial Fibromatosis 04/17/2011 MADL TAX LAWYER, JENNY L 691.8 Dermatitis Atopic Eczema 04/17/2011 MADL TAX LAWYER, JENNY L 728.71 Plantar Fascial Fibromatosis 04/17/2011 MADL TAX LAWYER, JENNY L 691.8 Dermatitis Atopic Eczema 04/17/2011 MADL TAX LAWYER, JENNY L 728.71 Plantar Fascial Fibromatosis 04/17/2011 [...] 216.9 Mole/nevus - Site Unspecified 07/24/2011 ALISA TAX LAWYER, DOMENIC A 216.9 Mole/nevus - Site Unspecified 07/24/2011 MADL TAX LAWYER, JENNY L 216.9 Mole/nevus - Site Unspecified 07/24/2011 BOEJOANN PHD, ANA A 216.9 Mole/nevus - Site Unspecified 07/24/2011 BOE[facility] PHD, ANA A 216.9 Mole/nevus - Site Unspecified 07/24/2011 MADL TAX LAWYER, JENNY L 216.9 Mole/nevus - Site Unspecified 07/24/2011 JENSEN TREVINO, GWEN 216.9 Mole/nevus - Site Unspecified 07/24/2011 [facility] PHD, ANA A 216.9 Mole/nevus - Site Unspecified 07/24/2011 BOE[facility] PHD, ANA A 216.9 Mole/nevus - Site Unspecified 07/24/2011 BOE[facility] PHD, ANA A 216.9 Mole/nevus - Site Unspecified 07/24/2011 MADL TAX LAWYER, JENNY L 216.9 Mole/nevus - Site Unspecified 07/24/2011 BOE[facility]ANN PHD, ANA A 216.9 Mole/nevus - Site Unspecified 07/24/2011 BOE[facility] PHD, ANA A 216.9 Mole/nevus - Site Unspecified 07/24/2011 MADL TAX LAWYER, JENNY L 216.9 Mole/nevus - Site Unspecified 07/24/2011 BOE[facility] PHD, ANA A 216.9 Mole/nevus - Site Unspecified 07/24/2011 HELM DO, CHRIS K 216.9 Mole/nevus - Site Unspecified 07/24/2011 MADL TAX LAWYER, JENNY L 216.9 Mole/nevus - Site Unspecified 07/24/2011 MADL TAX LAWYER, JENNY L 216.9 Mole/nevus - Site Unspecified 07/24/2011 BOEJOANN PHD, ANA A 216.9 Mole/nevus - Site Unspecified 07/24/2011 RAH PHD, ANA A 216.9 Mole/nevus - Site Unspecified 07/24/2011 MADL TAX LAWYER, JENNY L 216.9 Mole/nevus - Site Unspecified 07/24/2011 MADL TAX LAWYER, JENNY L 216.9 Mole/nevus - Site Unspecified [...] ANA A V58.32 Suture Removal 08/17/2011 ALISA TAX LAWYER, DOMENIC A V58.32 Suture Removal 08/17/2011 LUCIANO TAX LAWYER, JENNY L V58.32 Suture Removal 08/17/2011 RAH SIFUENTES, ANA Servin V58.32 Suture Removal 08/17/2011 RAH SIFUENTES, ANA A V58.32 Suture Removal 08/17/2011 LUCIANO TAX LAWYER, JENNY L V58.32 Suture Removal 08/17/2011 GWEN STYLES MD V58.32 Suture Removal 08/17/2011 RAH SIFUENTES, ANA A V58.32 Suture Removal 08/17/2011 RAH PHD, ANA A V58.32 Suture Removal 08/17/2011 BOEJOANN PHD, ANA A V58.32 Suture Removal 08/17/2011 MADL TAX LAWYER, JENNY L V58.32 Suture Removal 08/17/2011 BOEJOANN PHD, ANA A V58.32 Suture Removal 08/17/2011 BOEJOANN PHD, ANA A V58.32 Suture Removal 08/17/2011 MADL TAX LAWYER, JENNY L V58.32 Suture Removal 08/17/2011 RAH PHD, ANA A V58.32 Suture Removal 08/17/2011 HELM DOCHRIS K V58.32 Suture Removal 08/17/2011 MADL TAX LAWYER, JENNY L V58.32 Suture Removal 08/17/2011 MADL TAX LAWYER, JENNY L V58.32 Suture Removal 08/17/2011 RAH PHD, ANA A V58.32 Suture Removal 08/17/2011 RAH PHD, ANA A V58.32 Suture Removal 08/17/2011 MADL TAX LAWYER, JENNY L V58.32 Suture Removal 08/17/2011 MADL TAX LAWYER, JENNY L V58.32 Suture Removal 08/17/2011 CHRIS [...] ANA A 473.9 Sinusitis (chronic) 10/26/2011 MADL TAX LAWYER, JENNY L 388.70 Otalgia 10/26/2011 MADL TAX LAWYER, JENNY L 473.9 Sinusitis (chronic) 10/26/2011 JENSEN [...] ANA A 473.9 Sinusitis (chronic) 10/26/2011 MADL TAX LAWYER, JENNY L 388.70 Otalgia 10/26/2011 MADL TAX LAWYER, JENNY L 473.9 Sinusitis (chronic) 10/26/2011 RAH PHD, ANA A 388.70 Otalgia 10/26/2011 RAH PHD, ANA A 473.9 Sinusitis (chronic) 10/26/2011 RAH PHD, ANA A 388.70 Otalgia 10/26/2011 RAH PHD, ANA A 473.9 Sinusitis (chronic) 10/26/2011 MADL TAX LAWYER, JENNY L 388.70 Otalgia 10/26/2011 MADL TAX LAWYER, JENNY L 473.9 Sinusitis (chronic) 10/26/2011 RAH PHD, ANA A 388.70 Otalgia 10/26/2011 RAH PHD, ANA A 473.9 Sinusitis (chronic) 10/26/2011 HELM DO CHRIS K 388.70 Otalgia 10/26/2011 HELM DO CHRIS K 473.9 Sinusitis (chronic) 10/26/2011 MADL TAX LAWYER, JENNY L 388.70 Otalgia 10/26/2011 MADL TAX LAWYER, JENNY L 473.9 Sinusitis (chronic) 10/26/2011 MADL TAX LAWYER, JENNY L 388.70 Otalgia 10/26/2011 MADL TAX LAWYER, JENNY L 473.9 Sinusitis (chronic) 10/26/2011 RAH PHD, ANA A 388.70 Otalgia 10/26/2011 RAH PHD, ANA A 473.9 Sinusitis (chronic) 10/26/2011 RAH PHD, ANA A 388.70 Otalgia 10/26/2011 RAH PHD, ANA A 473.9 Sinusitis (chronic) 10/26/2011 MADL TAX LAWYER, JENNY L 388.70 Otalgia 10/26/2011 MADL TAX LAWYER, JENNY L 473.9 Sinusitis (chronic) 10/26/2011 MADL TAX LAWYER, JENNY L 388.70 Otalgia 10/26/2011 MADL TAX LAWYER, JENNY L 473.9 Sinusitis (chronic) 10/26/2011 CHRIS [...] CHRIS HELM DO V25.9 Contraception Management 02/06/2012 TIMI SANTOS MD 381.81 Eustachian Tube Dysfunction 02/06/2012 TIIM SANTOS MD 487.1 Influenza 02/06/2012 TOM TREVINO, [...] APRN A V25.9 Contraception Management 02/06/2012 MADL TAX LAWYER, JENNY L 381.81 Eustachian Tube Dysfunction 02/06/2012 MADL TAX LAWYER, JENNY L 487.1 Influenza 02/06/2012 MADL TAX LAWYER, JENNY L V25.9 Contraception Management 02/06/2012 ANA MONREAL PHD 381.81 Eustachian Tube Dysfunction 02/06/2012 ANA MONREAL PHD 487.1 Influenza 02/06/2012 ANA MONREAL PHD V25.9 Contraception Management 02/06/2012 ANA MONREAL PHD 381.81 Eustachian Tube Dysfunction 02/06/2012 ANA MONREAL PHD 487.1 Influenza 02/06/2012 ANA MONREAL PHD V25.9 Contraception Management 02/06/2012 MADL TAX LAWYER, JENNY L 381.81 Eustachian Tube Dysfunction 02/06/2012 MADL TAX LAWYER, JENNY L 487.1 Influenza 02/06/2012 MADL TAX LAWYER, JENNY L V25.9 Contraception Management 02/06/2012 GWEN STYLES MD 381.81 Eustachian Tube Dysfunction 02/06/2012 GWEN [...] MONREAL PHD V25.9 Contraception Management 02/06/2012 MADL TAX LAWYER, JENNY L 381.81 Eustachian Tube Dysfunction 02/06/2012 MADL TAX LAWYER, JENNY L 487.1 Influenza 02/06/2012 MADL TAX LAWYER, JENNY L V25.9 Contraception Management 02/06/2012 ANA MONREAL PHD 381.81 Eustachian Tube Dysfunction 02/06/2012 ANA MONREAL PHD 487.1 Influenza 02/06/2012 ANA MONREAL PHD V25.9 Contraception Management 02/06/2012 ANA MONREAL PHD 381.81 Eustachian Tube Dysfunction 02/06/2012 ANA MONREAL PHD 487.1 Influenza 02/06/2012 ANA MONREAL PHD V25.9 Contraception Management 02/06/2012 MADL TAX LAWYER, JENNY L 381.81 Eustachian Tube Dysfunction 02/06/2012 MADL TAX LAWYER, JENNY L 487.1 Influenza 02/06/2012 MADL TAX LAWYER, JENNY L V25.9 Contraception Management 02/06/2012 ANA MONREAL PHD 381.81 Eustachian Tube Dysfunction 02/06/2012 ANA MONREAL PHD 487.1 Influenza 02/06/2012 ANA MONREAL PHD V25.9 Contraception Management 02/06/2012 CHRIS HELM DO 381.81 Eustachian Tube Dysfunction 02/06/2012 CHRIS HELM DO 487.1 Influenza 02/06/2012 CHRIS HELM DO V25.9 Contraception Management 02/06/2012 MADL TAX LAWYER, JENNY L 381.81 Eustachian Tube Dysfunction 02/06/2012 MADL TAX LAWYER, JENNY L 487.1 Influenza 02/06/2012 MADL TAX LAWYER, JENNY L V25.9 Contraception Management 02/06/2012 MADL TAX LAWYER, JENNY L 381.81 Eustachian Tube Dysfunction 02/06/2012 MADL TAX LAWYER, JENNY L 487.1 Influenza 02/06/2012 MADL TAX LAWYER, JENNY L V25.9 Contraception Management 02/06/2012 RAH PHD, ANA Servin 381.81 Eustachian Tube Dysfunction 02/06/2012 RAH PHD, ANA Servin 487.1 Influenza 02/06/2012 RAH PHD, ANA Servin V25.9 Contraception Management 02/06/2012 RAH PHD, ANA Servin 381.81 Eustachian Tube Dysfunction 02/06/2012 RAH PHD, ANA Servin 487.1 Influenza 02/06/2012 RAH PHD, ANA Servin V25.9 Contraception Management 02/06/2012 MADL TAX LAWYER, JENNY L 381.81 Eustachian Tube Dysfunction 02/06/2012 MADL TAX LAWYER, JENNY L 487.1 Influenza 02/06/2012 MADL TAX LAWYER, JENNY L V25.9 Contraception Management 02/06/2012 MADL TAX LAWYER, JENNY L 381.81 Eustachian Tube Dysfunction 02/06/2012 MADL TAX LAWYER, JENNY L 487.1 Influenza 02/06/2012 MADL TAX LAWYER, JENNY L V25.9 Contraception Management 02/06/2012 HCRIS HELM DO K 381.81 Eustachian Tube Dysfunction [...] V25.49 Contraception Surveillance (repeat Rx) 05/19/2012 MADL TAX LAWYER, JENNY L V25.49 Contraception Surveillance (repeat Rx) 05/19/2012 ANA MONREAL PHD V25.49 Contraception Surveillance (repeat Rx) 05/19/2012 ANA MONREAL PHD V25.49 Contraception Surveillance (repeat Rx) 05/19/2012 CHACORTAL TAX LAWYER, JENNY Brown V25.49 Contraception Surveillance (repeat Rx) 05/19/2012 ANA MONREAL PHD V25.49 Contraception Surveillance (repeat Rx) 05/19/2012 CHRIS HELM DO V25.49 Contraception Surveillance (repeat Rx) 05/19/2012 MADL TAX LAWYER, JENNY Dasilva V25.49 Contraception Surveillance (repeat Rx) 05/19/2012 CHACORTAL TAX LAWYER, JENNY Dasilva V25.49 Contraception Surveillance (repeat Rx) 05/19/2012 ANA MONREAL PHD V25.49 Contraception Surveillance (repeat Rx) 05/19/2012 ANA MONREAL PHD V25.49 Contraception Surveillance (repeat Rx) 05/19/2012 MADL TAX LAWYER, JENNY Brown V25.49 Contraception Surveillance (repeat Rx) 05/19/2012 MADL TAX LAWYER, JENNY Brown V25.49 Contraception Surveillance (repeat Rx) 05/19/2012 CHRIS HELM DO V25.49 Contraception Surveillance (repeat Rx) 07/14/2012 278.00 OBESITY 07/14/2012 462 ACUTE PHARYNGITIS 07/14/2012 V72.31 SALES ENGAGEMENT MANAGER EXAM, ROUTINE 07/14/2012 V76.10 BREAST CANCER SCREENING 07/14/2012 CHRIS HELM DO 278.00 OBESITY 07/14/2012 CHRIS HELM DO 462 Acute Pharyngitis 07/14/2012 CHRIS HELM DO V72.31 Grocery Clerk Marking Exam, Routine 07/14/2012 CHRIS HELM DO V76.10 Breast Cancer Screening 07/14/2012 278.00 OBESITY 07/14/2012 462 Acute Pharyngitis 07/14/2012 V72.31 Grocery Clerk Marking Exam, Routine 07/14/2012 V76.10 Breast Cancer Screening 07/14/2012 CHRIS HELM DO 278.00 OBESITY 07/14/2012 CHRIS HELM DO 462 Acute Pharyngitis 07/14/2012 HELM CHRIS CHENG V72.31 Grocery Clerk Marking Exam, Routine 07/14/2012 HELM DO CHRIS K V76.10 Breast Cancer Screening 07/14/2012 TOM TREVINO, TIMI 278.00 OBESITY 07/14/2012 TOM TREVINO, TIMI 46Cynthia Acute Pharyngitis 07/14/2012 TOM TREVINO, TIMI V72.31 Grocery Clerk Marking Exam, Routine 07/14/2012 TOM TREVINO, TIMI V76.10 Breast Cancer Screening 07/14/2012 ZAIRE MANAGER METROLOGY, CAMMY B 278.00 OBESITY 07/14/2012 ZAIRE MANAGER METROLOGY, CAMMY B 462 Acute Pharyngitis 07/14/2012 ZAIRE MANAGER METROLOGY, CAMMY B V72.31 Grocery Clerk Marking Exam, Routine 07/14/2012 ZAIRE MANAGER METROLOGY, CAMMY B V76.10 Breast Cancer Screening 07/14/2012 TOM TREVINO, TIMI 278.00 OBESITY 07/14/2012 TIMI SANTOS MD Acute Pharyngitis 07/14/2012 TIMI SANTOS MD V72.31 Grocery Clerk Marking Exam, Routine 07/14/2012 TIMI SANTOS MD V76.10 Breast Cancer Screening 07/14/2012 TOM TREVINO, TIMI 278.00 OBESITY 07/14/2012 TOM TREVINO, TIMI 46Cynthia Acute Pharyngitis 07/14/2012 TOM TREVINO, TIMI V72.31 Grocery Clerk Marking Exam, Routine 07/14/2012 TOM TREVINO, TIMI V76.10 Breast Cancer Screening 07/14/2012 TOM TREVINO, TIMI 278.00 OBESITY 07/14/2012 TIMI SANTOS MD 46Cynthia Acute Pharyngitis 07/14/2012 TOM TREVINO, TIMI V72.31 Grocery Clerk Marking Exam, Routine 07/14/2012 TOM TREVINO, TIMI V76.10 Breast Cancer Screening 07/14/2012 TOM TREVINO, TIMI 278.00 OBESITY 07/14/2012 TIMI SANTOS MD 46Cynthia Acute Pharyngitis 07/14/2012 TOM TREVINO, TIMI V72.31 Grocery Clerk Marking Exam, Routine 07/14/2012 TIMI SANTOS MD V76.10 Breast Cancer Screening 07/14/2012 TOM TREVINO, TIMI 278.00 OBESITY 07/14/2012 HUERTER MD, TIMI 462 Acute Pharyngitis 07/14/2012 TOM TREVINO, TIMI V72.31 Grocery Clerk Marking Exam, Routine 07/14/2012 TOM TREVINO, TIMI V76.10 Breast Cancer Screening 07/14/2012 CHRIS HELM DO 278.00 OBESITY 07/14/2012 HELM DO CHRIS K 462 Acute Pharyngitis 07/14/2012 HELM CHRIS CHENG K V72.31 Grocery Clerk Marking Exam, Routine 07/14/2012 CHRIS HELM DO V76.10 Breast Cancer Screening 07/14/2012 DOMENIC CUELLAR APRN A 278.00 OBESITY 07/14/2012 DOMENIC CUELLAR APRN 462 Acute Pharyngitis 07/14/2012 DOMENIC CUELLAR APRN V72.31 Grocery Clerk Marking Exam, Routine 07/14/2012 DOMENIC CUELLAR APRN V76.10 Breast Cancer Screening 07/14/2012 CAMMY TAI LCPC 278.00 OBESITY 07/14/2012 CAMMY TAI LCPC 462 Acute Pharyngitis 07/14/2012 CAMMY TAI LCPC V72.31 Grocery Clerk Marking Exam, Routine 07/14/2012 CAMMY TAI LCPC V76.10 Breast Cancer Screening 07/14/2012 CHRIS HELM DO 278.00 OBESITY 07/14/2012 CHRIS HELM DO 462 Acute Pharyngitis 07/14/2012 CHRIS HELM DO V72.31 Grocery Clerk Marking Exam, Routine 07/14/2012 CHRIS HELM DO V76.10 Breast Cancer Screening 07/14/2012 RAH PHD, ANA Servin 278.00 OBESITY 07/14/2012 RAH SIFUENTES, ANA Servin 462 Acute Pharyngitis 07/14/2012 RAH SIFUENTES, ANA Servin V72.31 Grocery Clerk Marking Exam, Routine 07/14/2012 RAH SIFUENTES, ANA Servin V76.10 Breast Cancer Screening 07/14/2012 DOMENIC CUELLAR APRN 278.00 OBESITY 07/14/2012 DOMENIC CUELLAR APRN A 462 Acute Pharyngitis 07/14/2012 DOMENIC CUELLAR APRN V72.31 Grocery Clerk Marking Exam, Routine 07/14/2012 ALISA TAX LAWYER, DOMENIC A V76.10 Breast Cancer Screening 07/14/2012 MADL TAX LAWYER, JENNY L 278.00 OBESITY 07/14/2012 MADL TAX LAWYER, JENNY L 462 Acute Pharyngitis 07/14/2012 MADL TAX LAWYER, JENNY L V72.31 Grocery Clerk Marking Exam, Routine 07/14/2012 MADL TAX LAWYER, JENNY L V76.10 Breast Cancer Screening 07/14/2012 RAH PHD, ANA Servin 278.00 OBESITY 07/14/2012 RAH PHD, ANA A 462 Acute Pharyngitis 07/14/2012 RAH PHD, ANA Servin V72.31 Grocery Clerk Marking Exam, Routine 07/14/2012 RAH PHD, ANA Servin V76.10 Breast Cancer Screening 07/14/2012 RAH PHD, ANA Servin 278.00 OBESITY 07/14/2012 RAH PHD, ANA Servin 462 Acute Pharyngitis 07/14/2012 RAH PHD, ANA Servin V72.31 Grocery Clerk Marking Exam, Routine 07/14/2012 ANA MONREAL PHD V76.10 Breast Cancer Screening 07/14/2012 MADL TAX LAWYER, JENNY L 278.00 OBESITY 07/14/2012 MADL TAX LAWYER, JENNY L 462 Acute Pharyngitis 07/14/2012 MADL TAX LAWYER, JENNY L V72.31 Grocery Clerk Marking Exam, Routine 07/14/2012 MADL TAX LAWYER, JENNY L V76.10 Breast Cancer Screening 07/14/2012 JENESN TREVINO, GWEN 278.00 OBESITY 07/14/2012 JENSEN TREVINO, GWEN 462 Acute Pharyngitis 07/14/2012 JENSEN TREVINO, GWEN V72.31 Grocery Clerk Marking Exam, Routine 07/14/2012 JENSEN TREVINO, GWEN V76.10 Breast Cancer Screening 07/14/2012 RAH SIFUENTES, ANA Servin 278.00 OBESITY 07/14/2012 ANA MONREAL PHD 462 Acute Pharyngitis 07/14/2012 ANA MONREAL PHD V72.31 Grocery Clerk Marking Exam, Routine 07/14/2012 ANA MONREAL PHD V76.10 Breast Cancer Screening 07/14/2012 RAH SIFUENTES, ANA Servin 278.00 OBESITY 07/14/2012 RAH SIFUENTES, ANA Servin 462 Acute Pharyngitis 07/14/2012 RAH PHD, ANA A V72.31 Grocery Clerk Marking Exam, Routine 07/14/2012 AAN MONREAL PHD V76.10 Breast Cancer Screening 07/14/2012 RAH PHD, ANA A 278.00 OBESITY 07/14/2012 RAH PHD, ANA A 462 Acute Pharyngitis 07/14/2012 RAH PHD, ANA A V72.31 Grocery Clerk Marking Exam, Routine 07/14/2012 RAH PHD, ANA Servin V76.10 Breast Cancer Screening 07/14/2012 MADL TAX LAWYER, JENNY L 278.00 OBESITY 07/14/2012 MADL TAX LAWYER, JENNY L 462 Acute Pharyngitis 07/14/2012 MADL TAX LAWYER, JENNY L V72.31 Grocery Clerk Marking Exam, Routine 07/14/2012 MADL TAX LAWYER, JENNY L V76.10 Breast Cancer Screening 07/14/2012 RAH SIFUENTES, ANA A 278.00 OBESITY 07/14/2012 RAH PHD, ANA Servin 462 Acute Pharyngitis 07/14/2012 RAH SIFUENTES, ANA A V72.31 Grocery Clerk Marking Exam, Routine 07/14/2012 ANA MONREAL PHD V76.10 Breast Cancer Screening 07/14/2012 RAH SIFUENTES, ANA A 278.00 OBESITY 07/14/2012 RAH PHD, ANA Servin 462 Acute Pharyngitis 07/14/2012 RAH SIFUENTES, ANA A V72.31 Grocery Clerk Marking Exam, Routine 07/14/2012 RAH SIFUENTES, ANA Servin V76.10 Breast Cancer Screening 07/14/2012 MADL TAX LAWYER, JENNY L 278.00 OBESITY 07/14/2012 MADL TAX LAWYER, JENNY L 462 Acute Pharyngitis 07/14/2012 MADL TAX LAWYER, JENNY L V72.31 Grocery Clerk Marking Exam, Routine 07/14/2012 MADL TAX LAWYER, JENNY L V76.10 Breast Cancer Screening 07/14/2012 RAH SIFUENTES, ANA A 278.00 OBESITY 07/14/2012 RAH SIFUENTES, ANA A 462 Acute Pharyngitis 07/14/2012 RAH PHD, ANA Servin V72.31 Grocery Clerk Marking Exam, Routine 07/14/2012 RAH PHD, ANA Servin V76.10 Breast Cancer Screening 07/14/2012 HELM DO, CHRIS K 278.00 OBESITY 07/14/2012 HELM DO, CHRIS K 462 Acute Pharyngitis 07/14/2012 HELM DO, CHRIS K V72.31 Grocery Clerk Marking Exam, Routine 07/14/2012 HELM DO, CHRIS K V76.10 Breast Cancer Screening 07/14/2012 MADL TAX LAWYER, JENNY L 278.00 OBESITY 07/14/2012 MADL TAX LAWYER, JENNY L 462 Acute Pharyngitis 07/14/2012 MADL TAX LAWYER, JENNY L V72.31 Grocery Clerk Marking Exam, Routine 07/14/2012 MADL TAX LAWYER, JENNY L V76.10 Breast Cancer Screening 07/14/2012 MADL TAX LAWYER, JENNY L 278.00 OBESITY 07/14/2012 MADL TAX LAWYER, JENNY L 462 Acute Pharyngitis 07/14/2012 MADL TAX LAWYER, JENNY L V72.31 Grocery Clerk Marking Exam, Routine 07/14/2012 MADL TAX LAWYER, JENNY L V76.10 Breast Cancer Screening 07/14/2012 RAH PHD, ANA Servin 278.00 OBESITY 07/14/2012 RAH PHD, ANA Servin 462 Acute Pharyngitis 07/14/2012 RAH SIFUENTES, ANA Servin V72.31 Grocery Clerk Marking Exam, Routine 07/14/2012 RAH SIFUENTES, ANA Servin V76.10 Breast Cancer Screening 07/14/2012 RAH PHD, ANA A 278.00 OBESITY 07/14/2012 RAH SIFUENTES, ANA Servin 462 Acute Pharyngitis 07/14/2012 RAH SIFUENTES, ANA Servin V72.31 Grocery Clerk Marking Exam, Routine 07/14/2012 RAH SIFUENTES, ANA Servin V76.10 Breast Cancer Screening 07/14/2012 MADL TAX LAWYER, JENNY L 278.00 OBESITY 07/14/2012 MADL TAX LAWYER, JENNY L 462 Acute Pharyngitis 07/14/2012 MADL TAX LAWYER, JENNY L V72.31 Grocery Clerk Marking Exam, Routine 07/14/2012 CHACORTAL TAX LAWYER, JENNY L V76.10 Breast Cancer Screening 07/14/2012 MADL TAX LAWYER, JENNY L 278.00 OBESITY 07/14/2012 MADL TAX LAWYER, JENNY L 462 Acute Pharyngitis 07/14/2012 MADL TAX LAWYER, JENNY L V72.31 Grocery Clerk Marking Exam, Routine 07/14/2012 MADL TAX LAWYER, JENNY L V76.10 Breast Cancer Screening 07/14/2012 MYNOR HELM DOA K 278.00 OBESITY 07/14/2012 MYNOR HELM DOA K 462 Acute Pharyngitis 07/14/2012 MYNOR HELM DOA K V72.31 Grocery Clerk Marking Exam, Routine 07/14/2012 HELM MYNOR CHENGA K [...] ANA Servin 462 PHARYNGITIS ACUTE 11/05/2012 ALISA TAX LAWYER, DOMENIC A 462 PHARYNGITIS ACUTE 11/05/2012 MADL TAX LAWYER, JENNY L 462 PHARYNGITIS ACUTE 11/05/2012 RAH PHD, ANA A 462 PHARYNGITIS ACUTE 11/05/2012 RAH PHD, ANA A 462 PHARYNGITIS ACUTE 11/05/2012 MADL TAX LAWYER, JENNY L 462 PHARYNGITIS ACUTE 11/05/2012 JENSEN TREVINO, GWEN 462 PHARYNGITIS ACUTE 11/05/2012 RAH PHD, NAA A 462 PHARYNGITIS ACUTE 11/05/2012 RAH PHD, ANA A 462 PHARYNGITIS ACUTE 11/05/2012 RAH PHD, ANA A 462 PHARYNGITIS ACUTE 11/05/2012 MADL TAX LAWYER, JENNY L 462 PHARYNGITIS ACUTE 11/05/2012 RAH PHD, ANA A 462 PHARYNGITIS ACUTE 11/05/2012 RAH PHD, ANA A 462 PHARYNGITIS ACUTE 11/05/2012 MADL TAX LAWYER, JENNY L 462 PHARYNGITIS ACUTE 11/05/2012 RAH PHD, ANA A 462 PHARYNGITIS ACUTE 11/05/2012 HELM DO, CHRIS K 462 PHARYNGITIS ACUTE 11/05/2012 MADL TAX LAWYER, JENNY L 462 PHARYNGITIS ACUTE 11/05/2012 MADL TAX LAWYER, JENNY L 462 PHARYNGITIS ACUTE 11/05/2012 RAH PHD, ANA A 462 PHARYNGITIS ACUTE 11/05/2012 RAH PHD, ANA A 462 PHARYNGITIS ACUTE 11/05/2012 MADL TAX LAWYER, JENNY L 462 PHARYNGITIS ACUTE 11/05/2012 MADL TAX LAWYER, JENNY L 462 PHARYNGITIS ACUTE 11/05/2012 HELM DO, CHRIS K 462 PHARYNGITIS ACUTE 06/30/2013 AMOR BISHOP TAX LAWYER Ot 686.9 LOCAL SKIN INFECTION NOS 06/30/2013 AMOR BISHOP TAX LAWYER Ot 704.8 HAIR DISEASES NEC 06/30/2013 AMOR BISHOP TAX LAWYER Ot 782.1 NONSPECIF SKIN ERUPT NEC 07/19/2013 [...] UNSPECIFIED TYPE NOT STATED UNCONTROLLED 07/28/2013 ALISA TAX LAWYER, ODMENIC A 250.00 DIABETES MELLITUS WITHOUT MENTION OF [...] UNSPECIFIED TYPE NOT STATED UNCONTROLLED 07/28/2013 MADL TAX LAWYER, JENNY L 250.00 DIABETES MELLITUS WITHOUT MENTION [...] UNSPECIFIED TYPE NOT STATED UNCONTROLLED 07/28/2013 MADL TAX LAWYER, JENNY L 250.00 DIABETES MELLITUS WITHOUT MENTION OF COMPLICATION TYPE II OR UNSPECIFIED TYPE NOT STATED UNCONTROLLED 07/28/2013 RAH SIFUENTES, ANA A 250.00 DIABETES MELLITUS WITHOUT MENTION OF COMPLICATION TYPE II OR UNSPECIFIED TYPE NOT STATED UNCONTROLLED 07/28/2013 RAH SIFUENTES, ANA A 250.00 DIABETES MELLITUS WITHOUT MENTION OF COMPLICATION TYPE II OR UNSPECIFIED TYPE NOT STATED UNCONTROLLED 07/28/2013 MADL TAX LAWYER, JENNY L 250.00 DIABETES MELLITUS WITHOUT MENTION OF COMPLICATION TYPE II OR UNSPECIFIED TYPE NOT STATED UNCONTROLLED 07/28/2013 RAH SIFUENTES, ANA A 250.00 DIABETES MELLITUS WITHOUT MENTION OF COMPLICATION TYPE II OR UNSPECIFIED TYPE NOT STATED UNCONTROLLED 07/28/2013 CHRIS HELM DO 250.00 DIABETES MELLITUS WITHOUT MENTION OF COMPLICATION TYPE II OR UNSPECIFIED TYPE NOT STATED UNCONTROLLED 07/28/2013 MADL TAX LAWYER, JENNY L 250.00 DIABETES MELLITUS WITHOUT MENTION OF COMPLICATION TYPE II OR UNSPECIFIED TYPE NOT STATED UNCONTROLLED 07/28/2013 MADL TAX LAWYER, JENNY L 250.00 DIABETES MELLITUS WITHOUT MENTION OF COMPLICATION TYPE II OR UNSPECIFIED TYPE NOT STATED UNCONTROLLED 07/28/2013 RAH SIFUENTES, ANA A 250.00 DIABETES MELLITUS WITHOUT MENTION OF COMPLICATION TYPE II OR UNSPECIFIED TYPE NOT STATED UNCONTROLLED 07/28/2013 RAH SIFUENTES, ANA A 250.00 DIABETES MELLITUS WITHOUT MENTION OF COMPLICATION TYPE II OR UNSPECIFIED TYPE NOT STATED UNCONTROLLED 07/28/2013 MADL TAX LAWYER, JENNY L 250.00 DIABETES MELLITUS WITHOUT MENTION OF COMPLICATION TYPE II OR UNSPECIFIED TYPE NOT STATED UNCONTROLLED 07/28/2013 MADL TAX LAWYER, JENNY L 250.00 DIABETES MELLITUS WITHOUT MENTION [...] QUIROZN, DOMENIC A 356.9 NEUROPATHY 07/29/2013 MADL TAX LAWYER, JENNY L 356.9 NEUROPATHY 07/29/2013 RAH SIFUENTES, ANA A 356.9 NEUROPATHY 07/29/2013 RAH SIFUENTES, ANA A 356.9 NEUROPATHY 07/29/2013 MADL TAX LAWYER, JENNY L 356.9 NEUROPATHY 07/29/2013 GWEN STYLES MD 356.9 NEUROPATHY 07/29/2013 RAH SIFUENTES, ANA A 356.9 NEUROPATHY 07/29/2013 RAH SIFUENTES, ANA A 356.9 NEUROPATHY 07/29/2013 RAH SIFUENTES, ANA A 356.9 NEUROPATHY 07/29/2013 MADL TAX LAWYER, JENNY L 356.9 NEUROPATHY 07/29/2013 RAH SIFUENTES, ANA A 356.9 NEUROPATHY 07/29/2013 RAH SIFUENTES, ANA A 356.9 NEUROPATHY 07/29/2013 MADL TAX LAWYER, JENNY L 356.9 NEUROPATHY 07/29/2013 RAH SIFUENTES, ANA A 356.9 NEUROPATHY 07/29/2013 HELM DO, CHRIS K 356.9 NEUROPATHY 07/29/2013 MADL TAX LAWYER, JENNY L 356.9 NEUROPATHY 07/29/2013 MADL TAX LAWYER, JENNY L 356.9 NEUROPATHY 07/29/2013 RAH SIFUENTES, ANA A 356.9 NEUROPATHY 07/29/2013 RAH SIFUENTES, ANA A 356.9 NEUROPATHY 07/29/2013 MADL TAX LAWYER, JENNY L 356.9 NEUROPATHY 07/29/2013 MADL TAX LAWYER, JENNY L 356.9 NEUROPATHY 07/29/2013 HELM DO, [...] DOMENIC A 309.81 AN PTSD 07/31/2013 MADL TAX LAWYER, JENNY L 309.81 AN PTSD 07/31/2013 ANA MONREAL PHD 309.81 AN PTSD 07/31/2013 ANA MONREAL PHD 309.81 AN PTSD 07/31/2013 CHACORTAL TAX LAWYER, JENNY L 309.81 AN PTSD 07/31/2013 GWEN STYLES MD 309.81 AN PTSD 07/31/2013 ANA MONREAL PHD 309.81 AN PTSD 07/31/2013 ANA MONREAL PHD 309.81 AN PTSD 07/31/2013 RAH PHD, ANA A 309.81 AN PTSD 07/31/2013 MADL TAX LAWYER, JENNY L 309.81 AN PTSD 07/31/2013 RAH SIFUENTES, ANA A 309.81 AN PTSD 07/31/2013 RAH PHD, ANA A 309.81 AN PTSD 07/31/2013 MADL TAX LAWYER, JENNY L 309.81 AN PTSD 07/31/2013 RAH PHD, ANA A 309.81 AN PTSD 07/31/2013 HELM DOCHRIS K 309.81 AN PTSD 07/31/2013 MADL TAX LAWYER, JENNY L 309.81 AN PTSD 07/31/2013 MADL TAX LAWYER, JENNY L 309.81 AN PTSD 07/31/2013 RAH PHD, ANA A 309.81 AN PTSD 07/31/2013 RAH PHD, ANA A 309.81 AN PTSD 07/31/2013 MADL TAX LAWYER, JENNY L 309.81 AN PTSD 07/31/2013 MADL TAX LAWYER, JENNY L 309.81 AN PTSD 07/31/2013 HELM DOCHRIS K 309.81 AN PTSD 08/23/2013 MIN [...] KING MD Ot 721.3 LUMBOSACRAL SPONDYLOSIS 01/08/2014 JUSTIN KING MD Ot 722.52 LUMB/LUMBOSAC DISC [...] APRN 790.29 OTHER ABNORMAL GLUCOSE 02/25/2014 ANA MONREAL PHD 790.29 OTHER ABNORMAL GLUCOSE 02/25/2014 ANA MONREAL PHD 790.29 OTHER ABNORMAL GLUCOSE 02/25/2014 MADL TAX LAWYER, JENNY L 790.29 OTHER ABNORMAL GLUCOSE 02/25/2014 JENSEN TREVINO, GWEN 790.29 OTHER ABNORMAL GLUCOSE 02/25/2014 [facility] , ANA A 790.29 OTHER ABNORMAL GLUCOSE 02/25/2014 [facility] , ANA A 790.29 OTHER ABNORMAL GLUCOSE 02/25/2014 [facility] PHD, ANA A 790.29 OTHER ABNORMAL GLUCOSE 02/25/2014 MADL TAX LAWYER, JENNY L 790.29 OTHER ABNORMAL GLUCOSE 02/25/2014 [facility] , ANA A 790.29 OTHER ABNORMAL GLUCOSE 02/25/2014 [facility] PHD, ANA A 790.29 OTHER ABNORMAL GLUCOSE 02/25/2014 MADL TAX LAWYER, JENNY L 790.29 OTHER ABNORMAL GLUCOSE 02/25/2014 [facility] , ANA A 790.29 OTHER ABNORMAL GLUCOSE 02/25/2014 HELM DO, CHRIS K 790.29 OTHER ABNORMAL GLUCOSE 02/25/2014 MAD TAX LAWYER, JENNY L 790.29 OTHER ABNORMAL GLUCOSE 02/25/2014 MAD TAX LAWYER, JENNY L 790.29 OTHER ABNORMAL GLUCOSE 02/25/2014 [facility] , ANA A 790.29 OTHER ABNORMAL GLUCOSE 02/25/2014 [facility] , ANA A 790.29 OTHER ABNORMAL GLUCOSE 02/25/2014 MAD TAX LAWYER, JENNY L 790.29 OTHER ABNORMAL GLUCOSE 02/25/2014 MAD TAX LAWYER, JENNY L 790.29 OTHER ABNORMAL GLUCOSE 02/25/2014 HELM DO, CHRIS K 790.29 OTHER ABNORMAL GLUCOSE 05/03/2014 HELM DO, CHRIS K V25.9 CONTRACEPTION MANAGEMENT 05/03/2014 ALISA TAX LAWYERDOMENIC A V25.9 CONTRACEPTION MANAGEMENT 05/03/2014 CAMMY TAI LCPC V25.9 CONTRACEPTION MANAGEMENT 05/03/2014 HELM DO CHRIS K V25.9 CONTRACEPTION MANAGEMENT 05/03/2014 RAH SIFUENTES, ANA Servin V25.9 CONTRACEPTION MANAGEMENT 05/03/2014 ALISA TAX LAWYERDOMENIC A V25.9 CONTRACEPTION MANAGEMENT 05/03/2014 MADL TAX LAWYER, JENNY L V25.9 CONTRACEPTION MANAGEMENT 05/03/2014 RAH SIFUENTES, ANA A V25.9 CONTRACEPTION MANAGEMENT 05/03/2014 RAH PHD, ANA A V25.9 CONTRACEPTION MANAGEMENT 05/03/2014 MADL TAX LAWYER, JENNY L V25.9 CONTRACEPTION MANAGEMENT 05/03/2014 GWEN STYLES MD V25.9 CONTRACEPTION MANAGEMENT 05/03/2014 RAH PHD, ANA A V25.9 CONTRACEPTION MANAGEMENT 05/03/2014 RAH PHD, ANA A V25.9 CONTRACEPTION MANAGEMENT 05/03/2014 RAH PHD, ANA A V25.9 CONTRACEPTION MANAGEMENT 05/03/2014 MADL TAX LAWYER, JENNY L V25.9 CONTRACEPTION MANAGEMENT 05/03/2014 RAH PHD, ANA A V25.9 CONTRACEPTION MANAGEMENT 05/03/2014 RAH PHD, ANA A V25.9 CONTRACEPTION MANAGEMENT 05/03/2014 MADL TAX LAWYER, JENNY L V25.9 CONTRACEPTION MANAGEMENT 05/03/2014 RAH SIFUENTES, ANA A V25.9 CONTRACEPTION MANAGEMENT 05/03/2014 HELM DO CHRIS K V25.9 CONTRACEPTION MANAGEMENT 05/03/2014 MADL TAX LAWYER, JENNY L V25.9 CONTRACEPTION MANAGEMENT 05/03/2014 MADL TAX LAWYER, JENNY L V25.9 CONTRACEPTION MANAGEMENT 05/03/2014 RAH SIFUENTES, ANA A V25.9 CONTRACEPTION MANAGEMENT 05/03/2014 RAH PHD, ANA A V25.9 CONTRACEPTION MANAGEMENT 05/03/2014 MADL TAX LAWYER, JENNY L V25.9 CONTRACEPTION MANAGEMENT 05/03/2014 MADL TAX LAWYER, JENNY L V25.9 CONTRACEPTION MANAGEMENT 05/03/2014 HELM [...] MONREAL PHD 054.10 GENITAL HERPES UNSPECIFIED 05/24/2014 NAA MONREAL PHD A 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 05/24/2014 MADL TAX LAWYER, JENNY L 054.10 GENITAL HERPES UNSPECIFIED 05/24/2014 MADL TAX LAWYER, JENNY L 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 [...] 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 05/24/2014 CHACORTAL TAX LAWYER, JENNY L 054.10 GENITAL HERPES UNSPECIFIED 05/24/2014 CHACORTAL TAX LAWYER, JENNY L 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 05/24/2014 ANA MONREAL PHD 054.10 GENITAL HERPES UNSPECIFIED 05/24/2014 ANA MONREAL PHD 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 05/24/2014 ANA MONREAL PHD 054.10 GENITAL HERPES UNSPECIFIED 05/24/2014 ANA MONREAL PHD 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 05/24/2014 MADL TAX LAWYER, JENNY L 054.10 GENITAL HERPES UNSPECIFIED 05/24/2014 CHACORTAL TAX LAWYER, JENNY L 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 05/24/2014 ANA MONREAL PHD 054.10 GENITAL HERPES UNSPECIFIED 05/24/2014 ANA MONREAL PHD A 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 05/24/2014 HELM DO, CHRIS K 054.10 GENITAL HERPES UNSPECIFIED 05/24/2014 HELM DO, CHRIS K 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 05/24/2014 MADL TAX LAWYER, JENNY L 054.10 GENITAL HERPES UNSPECIFIED 05/24/2014 MADL TAX LAWYER, JENNY L 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 05/24/2014 MADL TAX LAWYER, JENNY L 054.10 GENITAL HERPES UNSPECIFIED 05/24/2014 MADL TAX LAWYER, JENNY L 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 05/24/2014 RAH SIFUENTES, ANA A 054.10 GENITAL HERPES UNSPECIFIED 05/24/2014 RAH PHD, ANA A 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 05/24/2014 RAH PHD, ANA A 054.10 GENITAL HERPES UNSPECIFIED 05/24/2014 RAH PHD, ANA A 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 05/24/2014 MADL TAX LAWYER, JENNY L 054.10 GENITAL HERPES UNSPECIFIED 05/24/2014 MADL TAX LAWYER, JENNY L 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 05/24/2014 MADL TAX LAWYER, JENNY L 054.10 GENITAL HERPES UNSPECIFIED 05/24/2014 MADL TAX LAWYER, JENNY L 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 05/24/2014 HELM DO CHRIS K 054.10 GENITAL HERPES UNSPECIFIED 05/24/2014 HELM DO CHRIS K 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 06/07/2014 CAMMY TAI LCPC 300.02 AN GEN ANXIETY 06/07/2014 ALICJA CHENG CHRIS K 300.02 AN GEN ANXIETY 06/07/2014 RAH SIFUENTES, ANA Servin 300.02 AN GEN ANXIETY 06/07/2014 DOMENIC CUELLAR APRN A 300.02 AN GEN ANXIETY 06/07/2014 LUCIANO TAX LAWYER, JENNY L 300.02 AN GEN ANXIETY 06/07/2014 RAH SIFUENTES, ANA A 300.02 AN GEN ANXIETY 06/07/2014 RAH SIFUENTES, ANA Servin 300.02 AN GEN ANXIETY 06/07/2014 LUCIANO TAX LAWYER, JENNY L 300.02 AN GEN ANXIETY 06/07/2014 GWEN STYLES MD 300.02 AN GEN ANXIETY 06/07/2014 RAH SIFUENTES, ANA Servin 300.02 AN GEN ANXIETY 06/07/2014 RAH SIFUENTES, ANA A 300.02 AN GEN ANXIETY 06/07/2014 RAH SIFUENTES, ANA A 300.02 AN GEN ANXIETY 06/07/2014 MADL TAX LAWYER, JENNY L 300.02 AN GEN ANXIETY 06/07/2014 BOEJOANN PHD, ANA A 300.02 AN GEN ANXIETY 06/07/2014 BOEDBOUT PHD, ANA A 300.02 AN GEN ANXIETY 06/07/2014 MADL TAX LAWYER, JENNY L 300.02 AN GEN ANXIETY 06/07/2014 BOEJOANN PHD, ANA A 300.02 AN GEN ANXIETY 06/07/2014 HELM DO, CHRIS K 300.02 AN GEN ANXIETY 06/07/2014 MADL TAX LAWYER, JENNY L 300.02 AN GEN ANXIETY 06/07/2014 MADL TAX LAWYER, JENNY L 300.02 AN GEN ANXIETY 06/07/2014 BOEJOANN PHD, ANA A 300.02 AN GEN ANXIETY 06/07/2014 BOEJOANN PHD, ANA A 300.02 AN GEN ANXIETY 06/07/2014 MADL TAX LAWYER, JENNY L 300.02 AN GEN ANXIETY 06/07/2014 MADL TAX LAWYER, JENNY L 300.02 AN GEN ANXIETY 06/07/2014 HELM DO, CHRIS K 300.02 AN GEN ANXIETY 06/16/2014 HELM DO, CHRIS K 785.1 PALPITATIONS 06/16/2014 RAH SIFUENTES, ANA A 785.1 PALPITATIONS 06/16/2014 DOMENIC CUELLAR APRN A 785.1 PALPITATIONS 06/16/2014 MADL TAX LAWYER, JENNY L 785.1 PALPITATIONS 06/16/2014 RAH SIFUENTES, ANA A 785.1 PALPITATIONS 06/16/2014 BOEJOANN PHD, ANA A 785.1 PALPITATIONS 06/16/2014 MADL TAX LAWYER, JENNY L 785.1 PALPITATIONS 06/16/2014 GWEN STYLES MD 785.1 PALPITATIONS 06/16/2014 RAH SIFUENTES, ANA A 785.1 PALPITATIONS 06/16/2014 RAH PHD, ANA A 785.1 PALPITATIONS 06/16/2014 RAH PHD, ANA A 785.1 PALPITATIONS 06/16/2014 MADL TAX LAWYER, JENNY L 785.1 PALPITATIONS 06/16/2014 RAH PHD, ANA A 785.1 PALPITATIONS 06/16/2014 RAH PHD, ANA A 785.1 PALPITATIONS 06/16/2014 MADL TAX LAWYER, JENNY L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 (moles/volume) 131 mmol/L 135-145 Serum or plasma potassium measurement (moles/volume) 4.4 mmol/L 3.6-5.0 Serum or plasma chloride measurement (moles/volume) 98 mmol/L 98-107 Carbon dioxide 13 mmol/L 21-32 Serum or plasma anion gap determination (moles/volume) 20 mmol/L 5-14 Serum or plasma urea nitrogen measurement (mass/volume) 21 mg/dL 7-18 Serum or plasma creatinine measurement (mass/volume) 1.25 mg/dL 0.60-1.30 Serum or plasma urea nitrogen/creatinine mass ratio 17 NRG Serum or plasma creatinine measurement with calculation of estimated glomerular filtration rate 48 NRG Serum or plasma glucose measurement (mass/volume) 369 mg/dL 70-105 Serum or plasma calcium measurement (mass/volume) 10.0 mg/dL 8.5-10.1 Serum or plasma total bilirubin measurement (mass/volume) 0.5 mg/dL 0.1-1.0 Serum or plasma alkaline phosphatase measurement (enzymatic activity/volume) 148 U/L 40-136 Serum or plasma aspartate aminotransferase measurement (enzymatic activity/ volume) 22 U/L 5-34 Serum or plasma alanine aminotransferase measurement (enzymatic activity/volume ) 39 U/L 0-55 Serum or plasma protein measurement (mass/volume) 9.0 g/dL 6.4-8.2 Serum or plasma albumin measurement (mass/volume) 4.4 g/dL 3.2-4.5 CALCIUM CORRECTED 9.7 mg/dL 8.5-10.1 Lipase - 10/08/18 20:28 Lipase 75 U/L 8-78 Complete blood count (CBC) with automated white blood cell (WBC) differential - 11/27/18 21:12 Blood leukocytes automated count (number/volume) 19.8 10*3/uL 4.3-11.0 Blood erythrocytes automated count (number/volume) 4.80 10*6/uL 4.35-5.85 Venous blood hemoglobin measurement (mass/volume) 14.9 g/dL 11.5-16.0 Blood hematocrit (volume fraction) 41 % 35-52 Automated erythrocyte mean corpuscular volume 86 [foz_us] 80-99 Automated erythrocyte mean corpuscular hemoglobin (mass per erythrocyte) 31 pg 25-34 Automated erythrocyte mean corpuscular hemoglobin concentration measurement ( mass/volume) 36 g/dL 32-36 Automated erythrocyte distribution width ratio 13.3 % 10.0-14.5 Automated blood platelet count (count/volume) 337 10*3/uL 130-400 Automated blood platelet mean volume measurement 10.5 [foz_us] 7.4-10.4 Automated blood neutrophils/100 leukocytes 79 % 42-75 Automated blood lymphocytes/100 leukocytes 14 % 12-44 Blood monocytes/100 leukocytes 8 % 0-12 Automated blood eosinophils/100 leukocytes 0 % 0-10 Automated blood basophils/100 leukocytes 0 % 0-10 Blood neutrophils automated count (number/volume) 15.6 10*3 1.8-7.8 Blood lymphocytes automated count (number/volume) 2.7 10*3 1.0-4.0 Blood monocytes automated count (number/volume) 1.5 10*3 0.0-1.0 Automated eosinophil count 0.0 10*3/uL 0.0-0.3 Automated blood basophil count (count/volume) 0.0 10*3/uL 0.0-0.1 Encounters ACCT No. Visit Date/Time Discharge Status Pt. Type Provider Facility Loc./Unit Complaint [id number] 01/31/2015 13:18:00 01/31/2015 23:59:59 CLS Outpatient CHRIS HELM DO [id number] 01/31/2015 10:27:00 01/31/2015 23:59:59 CLS Outpatient JENNY WOLF APRN [id number] 01/12/2015 15:54:00 01/12/2015 23:59:59 CLS Outpatient RAH SIFUENTES, ANA Servin [id number] 12/30/2014 14:24:00 12/30/2014 23:59:59 CLS Outpatient JENNY WOLF APRN [id number] 12/06/2014 13:58:00 12/06/2014 23:59:59 CLS Outpatient ANA MONREAL PHD [id number] 11/29/2014 09:51:00 11/29/2014 23:59:59 CLS Outpatient MADL TAX LAWYERJENNY Rodriguez [id number] 11/01/2014 12:55:00 11/01/2014 23:59:59 CLS Outpatient MADL TAX LAWYERJENNY [id number] 10/07/2014 14:58:00 10/07/2014 23:59:59 CLS Outpatient ANA MONREAL PHD [id number] 10/04/2014 13:35:00 10/04/2014 23:59:59 CLS Outpatient CHRIS HELM DO Ajay [id number] 10/04/2014 13:35:00 10/04/2014 23:59:59 CLS Outpatient MADL JENNY DIEHL [id number] 09/30/2014 15:55:00 09/30/2014 23:59:59 CLS Outpatient BETHANYOUT ANA SIFUENTES [id number] 09/01/2014 12:42:00 09/01/2014 23:59:59 CLS Outpatient ANA MONREAL PHD [id number] 08/31/2014 14:21:00 08/31/2014 23:59:59 CLS Outpatient MADL TAX LAWYERJENNY Brown [id number] 08/23/2014 16:02:00 08/23/2014 23:59:59 CLS Outpatient ANA MONREAL PHD [id number] 08/12/2014 10:46:00 08/12/2014 23:59:59 CLS Outpatient ANA MONREAL PHD [id number] 08/05/2014 08:53:00 08/05/2014 23:59:59 CLS Outpatient ANA MONREAL PHD [id number] 07/30/2014 08:52:00 07/30/2014 23:59:59 CLS Outpatient GWEN STYLES MD [id number] 07/14/2014 09:22:00 07/14/2014 23:59:59 CLS Outpatient MADL JENNY DIEHL Brown [id number] 07/12/2014 13:55:00 07/12/2014 23:59:59 CLS Outpatient BOEANA DAVID PHD [id number] 07/07/2014 08:47:00 07/07/2014 23:59:59 CLS Outpatient ANA MONREAL PHD [id number] 07/01/2014 10:57:00 07/01/2014 23:59:59 CLS Outpatient DOMENIC CUELLAR APRN [id number] 06/29/2014 09:55:00 06/29/2014 23:59:59 CLS Outpatient ANA MONREAL PHD [id number] 06/16/2014 14:07:00 06/16/2014 23:59:59 CLS Outpatient JENNY WOLF APRN [id number] 06/16/2014 14:07:00 06/16/2014 23:59:59 CLS Outpatient CHRIS HELM DO [id number] 06/07/2014 12:42:00 06/07/2014 23:59:59 CLS Outpatient CAMMY TAI LCPC [id number] 05/24/2014 17:18:00 05/24/2014 23:59:59 CLS Outpatient DOMENIC CUELLAR APRN [id number] 05/03/2014 17:52:00 05/03/2014 23:59:59 CLS Outpatient ALICJA CHENG CHRIS Moss [id number] 02/25/2014 15:18:00 02/25/2014 23:59:59 CLS Outpatient TIMI SANTOS MD [id number] 12/11/2013 14:55:00 12/11/2013 23:59:59 CLS Outpatient TIMI SANTOS MD [id number] 12/11/2013 14:55:00 12/11/2013 23:59:59 CLS Outpatient TIMI SANTOS MD [id number] 11/17/2013 15:20:00 11/17/2013 23:59:59 CLS Outpatient TIMI SANTOS MD [id number] 07/31/2013 10:46:00 07/31/2013 23:59:59 CLS Outpatient CAMMY TAI LCPC [id number] 07/28/2013 15:27:00 07/28/2013 23:59:59 CLS Outpatient TIMI SANTOS MD [id number] 07/28/2013 15:27:00 07/28/2013 23:59:59 CLS Outpatient TIMI SANTOS MD [id number] 11/05/2012 10:40:00 11/05/2012 23:59:59 CLS Outpatient CHRIS HELM DO [id number] 11/05/2012 10:40:00 11/05/2012 23:59:59 CLS Outpatient [id number] 10/08/2012 10:37:00 10/08/2012 23:59:59 [place] [id number] 07/14/2012 11:03:00 07/14/2012 23:59:59 CLS Outpatient [id number] 10/08/2018 19:33:00 10/08/2018 22:26:00 DIS Emergency MIN TREVINO, ARLEEN Albarran [facility] ER STOMACH PAIN, FEVER, NASUEA [id number] 11/11/2017 00:14:00 11/11/2017 23:59:59 CLS Preadmit Leidy HOUSE MD [facility] LAB N20.1 [id number] 08/14/2017 12:10:00 11/10/2017 00:01:00 DIS Outpatient Leidy HOUSE MD [facility] LAB N20.1 [id number] 08/26/2017 11:51:00 08/26/2017 23:59:59 CLS Outpatient Leidy HOUSE MD [facility] RAD CALCULUS OF URETER N20.1 [id number] 06/28/2017 20:38:00 06/30/2017 19:55:00 DIS Inpatient BLANCHE TREVINO, GENE Rodriguez [facility] 4TH JANEE,UTI,PYELONEPHRITIS,5 MM L KIDNEY STONE [id number] 05/27/2017 12:24:00 05/27/2017 18:52:00 DIS Emergency ALISE HATFIELD MD [facility] ER FEVER/BODYACHES [id number] 02/08/2017 11:53:00 02/08/2017 23:59:59 CLS Outpatient JENNY WOLF RADIO BOARD OPERATOR ANNOUNCER [facility] RAD ABNORMAL BERNARDINO [id number] 11/23/2016 07:56:00 11/23/2016 23:59:59 CLS Outpatient JUSTIN KING MD [facility] CARD DISC DISORDER [id number] 11/12/2016 13:51:00 11/12/2016 23:59:59 CLS Outpatient MADBrownJENNY Brown RADIO BOARD OPERATOR ANNOUNCER [facility] RAD BILAT COLD FEET, PAIN [id number] 09/24/2016 09:54:00 10/17/2016 15:52:00 DIS Outpatient JUSTIN KING MD [facility] REHAB LUMBAGO [id number] 07/20/2016 08:15:00 07/20/2016 23:59:59 CLS Outpatient GWEN STYLES MD [facility] CARD SOB,PALPITATIONS,HTN, DIABETES MELLITUS TYPE II [id number] 05/01/2016 17:01:00 05/01/2016 19:31:00 DIS Emergency AMOR BISHOP APRN [facility] ER MIGRAINE [id number] 04/27/2016 13:52:00 04/27/2016 23:59:59 CLS Outpatient LUCIANO JENNY L RAD[employer] OPERATOR ANNOUNCER [facility] CARD HEART PALPITATIONS [id number] 02/24/2016 19:44:00 02/25/2016 06:25:00 DIS Outpatient AMIRA WOLFNYA L RADIO [employer]ARD OPERATOR ANNOUNCER [facility] SLEEP SNORING,DAYTIME SLEEPINESS [id number] 02/21/2016 11:56:00 02/21/2016 14:45:00 DIS Outpatient KHURRAM DELGADO DO [facility] SDC BLOOD IN STOOL,REFLEX [id number] 02/17/2016 05:41:00 02/17/2016 12:06:00 DIS Outpatient KHURRAM DELGADO DO [facility] PREOP BLOOD IN STOOL,REFLEX [id number] 12/23/2015 05:43:00 12/23/2015 23:59:59 CLS Outpatient KHURRAM DELGADO DO [facility] PREOP N/V/ GERD [id number] 12/03/2015 03:16:00 12/03/2015 06:48:00 DIS Emergency ARLEEN COPELAND MD [facility] ER VOMITING,RT HIP PAIN( FELL OFF COUCH) [id number] 09/18/2015 19:44:00 09/18/2015 22:40:00 DIS Emergency LETICIA SAXENA [facility] ER DEHYDRATED/LOSS OF HANNA [id number] 06/10/2015 10:43:00 06/10/2015 12:14:00 DIS Outpatient JUSTIN KING MD [facility] CARD DDD LUMBAR [id number] 06/07/2015 21:01:00 06/07/2015 21:40:00 DIS Emergency AMOR BISHOP TAX LAWYER [facility] ER RASH,ITCHING [id number] 05/27/2015 13:25:00 05/27/2015 14:42:00 DIS Emergency AMOR BISHOP [employer] LAW[employer]ER [facility] ER RIGHT HAND PAIN/INFECTION [id number] 05/04/2015 15:00:00 05/04/2015 23:59:59 CLS Outpatient JUSTIN KING MD [facility] RAD DDD LUMBAR [id number] 03/02/2015 21:45:00 03/02/2015 23:05:00 DIS Emergency LETICIA SAXENA [facility] ER IRRITATION ON NERVE BURNING SITE [id number] 02/28/2015 11:53:00 02/28/2015 13:43:00 DIS Outpatient JUSTIN KING MD [facility] CARD LUMBAR SPONDOLOYSIS [id number] 02/21/2015 11:57:00 02/21/2015 14:07:00 DIS Outpatient JUSTIN KING MD [facility] CARD LUMBAR SPONDOLOYSIS [id number] 02/17/2015 22:32:00 02/18/2015 00:00:00 DIS Emergency AGUSTÍN HARTLEY DO [facility] ER LOWER BACK PAIN [id number] 11/29/2014 10:00:00 11/29/2014 23:59:59 CLS Preadmit EDWIN THOMPSON [facility] CARD CP, PALPITATIONS [id number] 08/30/2014 10:31:00 11/28/2014 00:01:00 DIS Outpatient EDWIN THOMPSON [facility] CARD CP, PALPITATIONS [id number] 09/03/2014 08:49:00 09/03/2014 09:50:00 DIS Outpatient JUSTIN KING MD [facility] LUMBAR SPONDYLOSIS [id number] 08/30/2014 10:23:00 08/30/2014 23:59:59 CLS Outpatient EDWIN THOMPSON [facility] CARD CP, PALPITATIONS [id number] 08/27/2014 08:27:00 08/27/2014 10:01:00 DIS Outpatient JUSTIN KING MD [facility] LUMBAR SPONDYLOSIS [id number] 06/30/2014 10:01:00 06/30/2014 23:59:59 CLS Outpatient LUCIANO JENNYGareth JONES [facility] PALPATATIONS [id number] 05/17/2014 13:05:00 05/17/2014 13:59:00 DIS Outpatient JUSTIN KING MD [facility] LUMBAR SPONDOLOSYSIS [id number] 05/10/2014 12:08:00 05/10/2014 13:06:00 DIS Outpatient JUSTIN KING MD [facility] LUMBAR SPONDOLOYSIS [id number] 05/05/2014 01:33:00 05/05/2014 02:24:00 DIS Emergency ALISE HATFIELD MD [facility] ER LEFT EYE PAIN [id number] 01/29/2014 07:49:00 01/29/2014 09:03:00 DIS Outpatient JUSTIN KING MD [facility] LUMBAR SPONDYLOSIS [id number] 01/08/2014 06:55:00 01/08/2014 07:49:00 DIS Outpatient JUSTIN KING MD [facility] LUMBAR SPONDYLOSIS [id number] 11/13/2013 08:14:00 11/13/2013 10:08:00 DIS Emergency JAIME MUSTAFA DO [facility] ER BACK PAIN [id number] 09/07/2013 17:24:00 09/07/2013 19:59:00 DIS Emergency JAIME MUSTAFA DO [facility] ER MULTIPLE COMPLAINTS [id number] 08/23/2013 17:15:00 08/23/2013 18:18:00 DIS Emergency ARLEEN COPELAND MD [facility] ER LAC ON FINGER [id number] 07/19/2013 14:56:00 07/19/2013 18:06:00 DIS Emergency LETICIA SAXENA [facility] ER RIGHT HAND AND ARM PAIN [id number] 06/30/2013 21:04:00 06/30/2013 21:59:00 DIS Emergency AMOR BISHOP APRN [facility] ER L ARM RASH [id number] 11/27/2018 20:49:00 ACT Emergency AMOR BISHOP APRN [facility] ER LOWER ABD PAIN,CRAMPING [id number] 06/10/2015 10:42:00 Document Registration [id number] 06/10/2015 10:42:00 Document Registration [id number] 06/10/2015 10:42:00 Document Registration [id number] 08/31/2012 15:19:00 Document Registration [id number] 01/02/2012 08:02:00 Document Registration [id number] 10/20/2011 03:07:00 Document Registration [id number] 10/19/2011 08:08:00 Document Registration [id number] 12/30/2010 23:31:00 Document Registration [id number] 01/27/2018 14:20:00 01/27/2018 23:59:59 CLS Outpatient CHACORTAL JENNY DIEHL [facility] [id number] 07/23/2018 13:20:00 Document Registration [id number] 06/24/2018 14:20:00 Document Registration [id number] 01/01/2018 12:00:00 Document Registration [id number] 06/10/2015 10:44:14 ACT Document Registration [id number] 05/31/2017 12:54:00 05/31/2017 14:35:00 DIS Outpatient Amor Bishop [id number] 05/31/2017 13:00:40 Document Registration [id number] 01/03/2017 09:10:00 Document Registration
[2018-11-27 22:15] LABS: ABG BASE EXCESS -2.3 MMOL/L (-2.5-2.5); ABG OXYGEN SATURATION 97 % (94-100); ABG PCO2 38 MMHG (35-45); ABG PH 7.38 (7.37-7.43); ABG PO2 76 MMHG (79-93); ABG TCO2 23.3 MMOL/L (21.0-31.0)
[2018-11-27 22:16] LABS: ALLENS TEST YES-POS; INSPIRED O2 ROOM AIR; PATIENT TEMP 97.7; VENTILATOR NO
--- NOTE | 2018-11-27 22:20 | Diagnostic Imaging Report ---
PROCEDURE: CT abdomen and pelvis with contrast. TECHNIQUE: Multiple contiguous axial images were obtained through the abdomen and pelvis after administration of intravenous contrast. INDICATION: Abdominal pain. FINDINGS: The previous CT abdomen/pelvis exam of 06/28/2017 noted obstruction of the left collecting system due to a 5 MM calculus in the proximal left ureter. On this exam, there is no evidence for obstruction of either collecting system. There is no sign of solid renal mass. The urinary bladder is grossly unremarkable. There is no pelvic mass or free fluid collection evident. The uterus does not appear to be enlarged. There is a 2.1 CM rounded area of low density in the left adnexa. This may represent a cyst arising from the left ovary. If further evaluation is desired, then a nonemergent pelvic ultrasound exam should be obtained. There are a few diverticula in the sigmoid colon, but there is no evidence for acute diverticulitis. The appendix was visualized and is not abnormally thickened. As noted on the prior exam, the liver is enlarged and of lower density than usually seen. The liver measures 28.3 CM in length and the low density appearance does suggest fatty metamorphosis. The spleen, pancreas, adrenals, gallbladder, aorta and inferior vena cava are unremarkable for an acute abnormality. The stomach is not well-distended and consequently difficult to assess. The lung bases are clear. The bone windows show no evidence for fracture or for destructive lesion. There is moderate degenerative disc and bony disease at L5-S1. IMPRESSION: 1. There is no acute abnormality of the abdomen or pelvis. In particular, there is no sign of obstruction of either collecting system by a calculus. 2. There is a question of a cyst associated with the left ovary. Recommendations as above. 3. 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 Dictated by: Dictated on workstation # [id number]
--- NOTE | 2018-11-27 22:42 | NUR ---
FAZAL Alan stated hold insulin drip until on the floor.
--- NOTE | 2018-11-27 23:00 | NUR ---
Pt to [facility] via stretcher, significant other and staff at bedside. 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 This RN attempted therapeutic communication, informed pt of plan of care. Pt also reports taking medications "and if I don't take them, I get hot and sweaty and it's really really bad, I just want to not have pain." This RN attempted therapeutic communication, explained policies and procedures to pt, made list of important home medications for pt to take in order to get them restarted. Pt's significant other stated he could bring her medications in, this RN again reinforced that pt would not be allowed to take home medications. Pt stated "well, now that's going to be a problem". This RN again attempted therapeutic communication and stated that she could take medications prescribed here in this facility, and her home medications could be verified by pharmacy in am. Pt and S.O. verbalized understanding, need reinforcement.
[2018-11-27 23:12] VITALS: BP 150/109
[2018-11-27 23:15] VITALS: BP 178/100
[2018-11-27 23:30] VITALS: BP 156/95
[2018-11-27] MEDS ORDERED: NORMAL SALINE 250 ML ONE (23:38)
[2018-11-27] MEDS ORDERED: inSUlin (REGULAR) HUMAN 1 UNIT/0.01 ML (CHARGE PER UNIT) ONE (23:39)
[2018-11-27 23:45] VITALS: BP 145/95
[2018-11-27] MEDS ORDERED: NS IV 1000 ML X 1 WIDE OPEN IV ONE (23:45)
[2018-11-27] MEDS ORDERED: POTASSIUM CL 10MEQ/50ML IVPB 50 ML IV ONE (23:47)
[2018-11-27] MEDS ORDERED: 1/2 NS IV SOLUTION 1,000 ML IV ONE (23:47)
--- OUTSIDE RECORDS SUMMARY | 2018-11-27 23:47 | XMS REPORT | Continuity of Care Document ---
Author Author [facility] Address Unknown Phone Unavailable Allergies Active Description Code Type Severity Reaction Onset Reported/Identified Relationship to Patient Clinical Status Yes LEVAQUIN MODERATE OTHER Yes SHELL FISH SEVERE ANAPHYLACTIC SHOCK Yes Quinolones [id number] Drug Allergy Unknown N/A 02/10/2006 Yes CLINONE CLINONE Mild N/A 03/21/2009 Yes levofloxacin [id number] Drug Allergy Mild N/A 03/21/2009 Yes Levaquin Drug Allergy N/A N/A 07/25/2009 Yes shellfish Food Allergy N/A N/A 07/25/2009 Yes Levaquin Drug Allergy 07/25/2009 Yes shellfish Food Allergy 07/25/2009 Yes Prozac Drug Allergy N/A N/A 03/24/2012 Yes Prozac 40 mg Capsule Drug Allergy 03/24/2012 Yes Quinolones Drug Allergy N/A N/A 06/16/2014 Yes shellfish derived [id number] Drug Allergy Unknown N/A 05/27/2015 Medications Medication [...] V25.40 visit for: contraceptive surveillance 05/12/2008 RAH SFIUENTES, ANA Servin V72.31 ROUTINE PELVIC EXAM 05/12/2008 [...] PHD V72.31 ROUTINE PELVIC EXAM 05/12/2008 MADL UNIVERSITY ADMINISTRATIVE ASSISTANT, JENNY L 625.0 DYSPAREUNIA 05/12/2008 MADL UNIVERSITY ADMINISTRATIVE ASSISTANT, JENNY L V25.40 visit for: contraceptive surveillance 05/12/2008 MADL UNIVERSITY ADMINISTRATIVE ASSISTANT, JENNY L V72.31 ROUTINE PELVIC EXAM 05/12/2008 [...] PHD V72.31 ROUTINE PELVIC EXAM 05/12/2008 MADL UNIVERSITY ADMINISTRATIVE ASSISTANT, JENNY L 625.0 DYSPAREUNIA 05/12/2008 MADL UNIVERSITY ADMINISTRATIVE ASSISTANT, JENNY L V25.40 visit for: contraceptive surveillance 05/12/2008 MADL UNIVERSITY ADMINISTRATIVE ASSISTANT, JENNY L V72.31 ROUTINE PELVIC EXAM 05/12/2008 ANA MONREAL PHD 625.0 DYSPAREUNIA 05/12/2008 ANA MONREAL PHD V25.40 visit for: contraceptive surveillance 05/12/2008 ANA MONREAL PHD V72.31 ROUTINE PELVIC EXAM 05/12/2008 ANA MONREAL PHD 625.0 DYSPAREUNIA 05/12/2008 ANA MONREAL PHD V25.40 visit for: contraceptive surveillance 05/12/2008 ANA MONREAL PHD V72.31 ROUTINE PELVIC EXAM 05/12/2008 MADL UNIVERSITY ADMINISTRATIVE ASSISTANT, JENNY L 625.0 DYSPAREUNIA 05/12/2008 MADL UNIVERSITY ADMINISTRATIVE ASSISTANT, JENNY L V25.40 visit for: contraceptive surveillance 05/12/2008 MADL UNIVERSITY ADMINISTRATIVE ASSISTANT, JENNY L V72.31 ROUTINE PELVIC EXAM 05/12/2008 ANA MONREAL PHD 625.0 DYSPAREUNIA 05/12/2008 ANA MONREAL PHD V25.40 visit for: contraceptive surveillance 05/12/2008 ANA MONREAL PHD V72.31 ROUTINE PELVIC EXAM 05/12/2008 CHRIS HELM DO 625.0 DYSPAREUNIA 05/12/2008 CHRIS HELM DO K V25.40 visit for: contraceptive surveillance 05/12/2008 ALICJA CHENG CHRIS K V72.31 ROUTINE PELVIC EXAM 05/12/2008 MADL UNIVERSITY ADMINISTRATIVE ASSISTANT, JENNY L 625.0 DYSPAREUNIA 05/12/2008 MADL UNIVERSITY ADMINISTRATIVE ASSISTANT, JENNY L V25.40 visit for: contraceptive surveillance 05/12/2008 MADL UNIVERSITY ADMINISTRATIVE ASSISTANT, JENNY L V72.31 ROUTINE PELVIC EXAM 05/12/2008 MADL UNIVERSITY ADMINISTRATIVE ASSISTANT, JENNY L 625.0 DYSPAREUNIA 05/12/2008 MADL UNIVERSITY ADMINISTRATIVE ASSISTANT, JENNY L V25.40 visit for: contraceptive surveillance 05/12/2008 MADL UNIVERSITY ADMINISTRATIVE ASSISTANT, JENNY L V72.31 ROUTINE PELVIC EXAM 05/12/2008 ANA MONREAL PHD 625.0 DYSPAREUNIA 05/12/2008 ANA MONREAL PHD V25.40 visit for: contraceptive surveillance 05/12/2008 ANA MONREAL PHD V72.31 ROUTINE PELVIC EXAM 05/12/2008 ANA MONREAL PHD 625.0 DYSPAREUNIA 05/12/2008 ANA MONREAL PHD V25.40 visit for: contraceptive surveillance 05/12/2008 ANA MONREAL PHD V72.31 ROUTINE PELVIC EXAM 05/12/2008 MADL UNIVERSITY ADMINISTRATIVE ASSISTANT, JENNY L 625.0 DYSPAREUNIA 05/12/2008 MADL UNIVERSITY ADMINISTRATIVE ASSISTANT, JENNY L V25.40 visit for: contraceptive surveillance 05/12/2008 MADL UNIVERSITY ADMINISTRATIVE ASSISTANT, JENNY L V72.31 ROUTINE PELVIC EXAM 05/12/2008 MADL UNIVERSITY ADMINISTRATIVE ASSISTANT, JENNY L 625.0 DYSPAREUNIA 05/12/2008 MADL UNIVERSITY ADMINISTRATIVE ASSISTANT, JENNY L V25.40 visit for: contraceptive surveillance 05/12/2008 MADL UNIVERSITY ADMINISTRATIVE ASSISTANT, JENNY L V72.31 ROUTINE PELVIC EXAM 05/12/2008 [...] A 626.8 DYSFUNCTIONAL UTERINE BLEEDING 06/15/2008 MADL UNIVERSITY ADMINISTRATIVE ASSISTANT, JENNY L 626.8 DYSFUNCTIONAL UTERINE BLEEDING 06/15/2008 ANA MONREAL PHD 626.8 DYSFUNCTIONAL UTERINE BLEEDING 06/15/2008 ANA MONREAL PHD 626.8 DYSFUNCTIONAL UTERINE BLEEDING 06/15/2008 MADL UNIVERSITY ADMINISTRATIVE ASSISTANT, JENNY L 626.8 DYSFUNCTIONAL UTERINE BLEEDING 06/15/2008 [...] K 626.8 DYSFUNCTIONAL UTERINE BLEEDING 06/15/2008 MADL UNIVERSITY ADMINISTRATIVE ASSISTANT, JENNY L 626.8 DYSFUNCTIONAL UTERINE BLEEDING 06/15/2008 [place] UNIVERSITY ADMINISTRATIVE ASSISTANT, JENNY L 626.8 DYSFUNCTIONAL UTERINE BLEEDING 06/15/2008 ANA MONREAL PHD 626.8 DYSFUNCTIONAL UTERINE BLEEDING 06/15/2008 ANA MONREAL PHD 626.8 DYSFUNCTIONAL UTERINE BLEEDING 06/15/2008 MAD UNIVERSITY ADMINISTRATIVE ASSISTANT, JENNY L 626.8 DYSFUNCTIONAL UTERINE BLEEDING 06/15/2008 MADL UNIVERSITY ADMINISTRATIVE ASSISTANT, JENNY L 626.8 DYSFUNCTIONAL UTERINE BLEEDING 06/15/2008 [...] Contracept Agent - Repeat Rx 08/13/2008 MADL UNIVERSITY ADMINISTRATIVE ASSISTANTJENNY V25.49 Gynecologic Service Prescrip Of Contracept Agent [...] Contracept Agent - Repeat Rx 08/13/2008 [place] UNIVERSITY ADMINISTRATIVE ASSISTANTJENNY V25.49 Gynecologic Service Prescrip Of Contracept Agent - Repeat Rx 08/13/2008 ANA MONREAL PHD V25.49 Gynecologic Service Prescrip Of Contracept Agent - Repeat Rx 08/13/2008 ANA MONREAL PHD V25.49 Gynecologic Service Prescrip Of Contracept Agent - Repeat Rx 08/13/2008 [place] UNIVERSITY ADMINISTRATIVE ASSISTANTJENNY V25.49 Gynecologic Service Prescrip Of Contracept Agent [...] DO, CHRIS K 724.5 BACKACHE 09/21/2008 ALISA UNIVERSITY ADMINISTRATIVE ASSISTANT, DOMENIC A 724.5 BACKACHE 09/21/2008 ZAIRE SWIFT, CAMMY B 724.5 BACKACHE 09/21/2008 HELM DO, CHRIS K 724.5 BACKACHE 09/21/2008 RAH PHD, ANA A 724.5 BACKACHE 09/21/2008 ALISA UNIVERSITY ADMINISTRATIVE ASSISTANT, DOMENIC A 724.5 BACKACHE 09/21/2008 MADL UNIVERSITY ADMINISTRATIVE ASSISTANT, JENNY L 724.5 BACKACHE 09/21/2008 RAH PHD, ANA A 724.5 BACKACHE 09/21/2008 RAH PHD, ANA A 724.5 BACKACHE 09/21/2008 MADL UNIVERSITY ADMINISTRATIVE ASSISTANT, JENNY L 724.5 BACKACHE 09/21/2008 JENSEN TREVINO, GWEN 724.5 BACKACHE 09/21/2008 RAH PHD, ANA A 724.5 BACKACHE 09/21/2008 RAH PHD, ANA A 724.5 BACKACHE 09/21/2008 RAH PHD, ANA A 724.5 BACKACHE 09/21/2008 MADL UNIVERSITY ADMINISTRATIVE ASSISTANT, JENNY L 724.5 BACKACHE 09/21/2008 RAH PHD, ANA A 724.5 BACKACHE 09/21/2008 RAH PHD, ANA A 724.5 BACKACHE 09/21/2008 MADL UNIVERSITY ADMINISTRATIVE ASSISTANT, JENNY L 724.5 BACKACHE 09/21/2008 RAH PHD, ANA A 724.5 BACKACHE 09/21/2008 HELM DO, CHRIS K 724.5 BACKACHE 09/21/2008 MADL UNIVERSITY ADMINISTRATIVE ASSISTANT, JENNY L 724.5 BACKACHE 09/21/2008 MADL UNIVERSITY ADMINISTRATIVE ASSISTANT, JENNY L 724.5 BACKACHE 09/21/2008 BOEJOANN PHD, ANA A 724.5 BACKACHE 09/21/2008 BOEJOANN PHD, ANA A 724.5 BACKACHE 09/21/2008 MADL UNIVERSITY ADMINISTRATIVE ASSISTANT, JENNY L 724.5 BACKACHE 09/21/2008 MADL UNIVERSITY ADMINISTRATIVE ASSISTANT, JENNY L 724.5 BACKACHE 09/21/2008 HELM DO, [...] Screening Examination For Venereal Disease 11/03/2008 MADL UNIVERSITY ADMINISTRATIVE ASSISTANT, JENNY L V74.5 Screening Examination For Venereal Disease 11/03/2008 BOEDBOUT PHD, ANA A V74.5 Screening Examination For Venereal Disease 11/03/2008 BOEDBOUT PHD, ANA A V74.5 Screening Examination For Venereal Disease 11/03/2008 MADL UNIVERSITY ADMINISTRATIVE ASSISTANT, JENNY L V74.5 Screening Examination For Venereal Disease 11/03/2008 JENSEN TREVINO, GWEN V74.5 Screening Examination For Venereal Disease 11/03/2008 BOEDBOUT PHD, ANA A V74.5 Screening Examination For Venereal Disease 11/03/2008 BOEDBOUT PHD, ANA A V74.5 Screening Examination For Venereal Disease 11/03/2008 BOEDBOUT PHD, ANA A V74.5 Screening Examination For Venereal Disease 11/03/2008 MADL UNIVERSITY ADMINISTRATIVE ASSISTANT, JENNY L V74.5 Screening Examination For Venereal Disease 11/03/2008 BOEDBOUT PHD, ANA A V74.5 Screening Examination For Venereal Disease 11/03/2008 BOEDBOUT PHD, ANA A V74.5 Screening Examination For Venereal Disease 11/03/2008 MADL UNIVERSITY ADMINISTRATIVE ASSISTANT, JENNY L V74.5 Screening Examination For Venereal Disease 11/03/2008 BOEJOANN PHD, ANA A V74.5 Screening Examination For Venereal Disease 11/03/2008 HELM DO, CHRIS K V74.5 Screening Examination For Venereal Disease 11/03/2008 MADL UNIVERSITY ADMINISTRATIVE ASSISTANT, JENNY L V74.5 Screening Examination For Venereal Disease 11/03/2008 MADL UNIVERSITY ADMINISTRATIVE ASSISTANT, JENNY L V74.5 Screening Examination For Venereal [...] APRN A 616.10 Bacterial Vaginosis 11/17/2008 ZAIRE CRITICAL POWER TECHNICIAN, CAMMY B 054.10 HERPES SIMPLEX TYPE II 11/17/2008 ZAIRE CRITICAL POWER TECHNICIAN, CAMMY B 462 Pharyngitis Acute 11/17/2008 ZAIRE CRITICAL POWER TECHNICIAN, CAMMY B 465.9 Upper Respiratory Infection 11/17/2008 ZAIRE CRITICAL POWER TECHNICIAN, CAMMY B 616.10 Bacterial Vaginosis 11/17/2008 HELM [...] ANA Servin 616.10 Bacterial Vaginosis 11/17/2008 ALISA UNIVERSITY ADMINISTRATIVE ASSISTANT, DOMENIC A 054.10 HERPES SIMPLEX TYPE II 11/17/2008 ALISA UNIVERSITY ADMINISTRATIVE ASSISTANT, DOMENIC A 462 Pharyngitis Acute 11/17/2008 ALISA UNIVERSITY ADMINISTRATIVE ASSISTANT, DOMENIC A 465.9 Upper Respiratory Infection 11/17/2008 ALISA UNIVERSITY ADMINISTRATIVE ASSISTANT, DOMENIC A 616.10 Bacterial Vaginosis 11/17/2008 MADL UNIVERSITY ADMINISTRATIVE ASSISTANT, JENNY L 054.10 HERPES SIMPLEX TYPE II 11/17/2008 MADL UNIVERSITY ADMINISTRATIVE ASSISTANT, JENNY L 462 Pharyngitis Acute 11/17/2008 MADL UNIVERSITY ADMINISTRATIVE ASSISTANT, JENNY L 465.9 Upper Respiratory Infection 11/17/2008 MADL UNIVERSITY ADMINISTRATIVE ASSISTANT, JENNY L 616.10 Bacterial Vaginosis 11/17/2008 ANA [...] ANA A 616.10 Bacterial Vaginosis 11/17/2008 MADL UNIVERSITY ADMINISTRATIVE ASSISTANT, JENNY L 054.10 HERPES SIMPLEX TYPE II 11/17/2008 MADL UNIVERSITY ADMINISTRATIVE ASSISTANT, JENNY L 462 Pharyngitis Acute 11/17/2008 MADL UNIVERSITY ADMINISTRATIVE ASSISTANT, JENNY L 465.9 Upper Respiratory Infection 11/17/2008 MADL UNIVERSITY ADMINISTRATIVE ASSISTANT, JENNY L 616.10 Bacterial Vaginosis 11/17/2008 JENSEN [...] ANA A 465.9 Upper Respiratory Infection 11/17/2008 ARH PHD, ANA A 616.10 Bacterial Vaginosis 11/17/2008 [...] ANA A 616.10 Bacterial Vaginosis 11/17/2008 MADL UNIVERSITY ADMINISTRATIVE ASSISTANT, JENNY L 054.10 HERPES SIMPLEX TYPE II 11/17/2008 MADL UNIVERSITY ADMINISTRATIVE ASSISTANT, JENNY L 462 Pharyngitis Acute 11/17/2008 MADL UNIVERSITY ADMINISTRATIVE ASSISTANT, JENNY L 465.9 Upper Respiratory Infection 11/17/2008 MADL UNIVERSITY ADMINISTRATIVE ASSISTANT, JENNY L 616.10 Bacterial Vaginosis 11/17/2008 BOEJOANN [...] ANA A 616.10 Bacterial Vaginosis 11/17/2008 MADL UNIVERSITY ADMINISTRATIVE ASSISTANT, JENNY L 054.10 HERPES SIMPLEX TYPE II 11/17/2008 MADL UNIVERSITY ADMINISTRATIVE ASSISTANT, JENNY L 462 Pharyngitis Acute 11/17/2008 MADL UNIVERSITY ADMINISTRATIVE ASSISTANT, JENNY L 465.9 Upper Respiratory Infection 11/17/2008 MADL UNIVERSITY ADMINISTRATIVE ASSISTANT, JENNY L 616.10 Bacterial Vaginosis 11/17/2008 BOEJOANN PHD, ANA A 054.10 HERPES SIMPLEX TYPE II 11/17/2008 RAH PHD, ANA A 462 Pharyngitis Acute 11/17/2008 RAH PHD, ANA A 465.9 Upper Respiratory Infection 11/17/2008 [facility] PHD, ANA A 616.10 Bacterial Vaginosis 11/17/2008 HELM DO, CHRIS K 054.10 HERPES SIMPLEX TYPE II 11/17/2008 HELM DO, CHRIS K 462 Pharyngitis Acute 11/17/2008 HELM DO, CHRIS K 465.9 Upper Respiratory Infection 11/17/2008 HELM DO, CHRIS K 616.10 Bacterial Vaginosis 11/17/2008 MADL UNIVERSITY ADMINISTRATIVE ASSISTANT, JENNY L 054.10 HERPES SIMPLEX TYPE II 11/17/2008 MADL UNIVERSITY ADMINISTRATIVE ASSISTANT, JENNY L 462 Pharyngitis Acute 11/17/2008 MADL UNIVERSITY ADMINISTRATIVE ASSISTANT, JENNY L 465.9 Upper Respiratory Infection 11/17/2008 MADL UNIVERSITY ADMINISTRATIVE ASSISTANT, JENNY L 616.10 Bacterial Vaginosis 11/17/2008 MADL UNIVERSITY ADMINISTRATIVE ASSISTANT, JENNY L 054.10 HERPES SIMPLEX TYPE II 11/17/2008 MADL UNIVERSITY ADMINISTRATIVE ASSISTANT, JENNY L 462 Pharyngitis Acute 11/17/2008 MADL UNIVERSITY ADMINISTRATIVE ASSISTANT, JENNY L 465.9 Upper Respiratory Infection 11/17/2008 MADL UNIVERSITY ADMINISTRATIVE ASSISTANT, JENNY L 616.10 Bacterial Vaginosis 11/17/2008 RAH [...] PHD, ANA A 616.10 Bacterial Vaginosis 11/17/2008 [facility] UNIVERSITY ADMINISTRATIVE ASSISTANT, JENNY L 054.10 HERPES SIMPLEX TYPE II 11/17/2008 MAD UNIVERSITY ADMINISTRATIVE ASSISTANT, JENNY L 462 Pharyngitis Acute 11/17/2008 MADL UNIVERSITY ADMINISTRATIVE ASSISTANT, JENNY L 465.9 Upper Respiratory Infection 11/17/2008 MADL UNIVERSITY ADMINISTRATIVE ASSISTANT, JENNY L 616.10 Bacterial Vaginosis 11/17/2008 MADL UNIVERSITY ADMINISTRATIVE ASSISTANT, JENNY L 054.10 HERPES SIMPLEX TYPE II 11/17/2008 MADL UNIVERSITY ADMINISTRATIVE ASSISTANT, JENNY L 462 Pharyngitis Acute 11/17/2008 MADL UNIVERSITY ADMINISTRATIVE ASSISTANT, JENNY L 465.9 Upper Respiratory Infection 11/17/2008 MADL UNIVERSITY ADMINISTRATIVE ASSISTANT, JENNY L 616.10 Bacterial Vaginosis 11/17/2008 CHRIS [...] Servin V05.9 IMMUNIZATION, SINGLE, UNSPEC. 01/04/2009 MADL UNIVERSITY ADMINISTRATIVE ASSISTANT, JENNY L V05.9 IMMUNIZATION, SINGLE, UNSPEC. 01/04/2009 JENSEN TREVINO, GWEN V05.9 IMMUNIZATION, SINGLE, UNSPEC. 01/04/2009 [facility] PHD, ANA A V05.9 IMMUNIZATION, SINGLE, UNSPEC. 01/04/2009 [facility] PHD, ANA A V05.9 IMMUNIZATION, SINGLE, UNSPEC. 01/04/2009 [facility] PHD, ANA A V05.9 IMMUNIZATION, SINGLE, UNSPEC. 01/04/2009 MADL UNIVERSITY ADMINISTRATIVE ASSISTANT, JENNY L V05.9 IMMUNIZATION, SINGLE, UNSPEC. 01/04/2009 [facility] PHD, ANA A V05.9 IMMUNIZATION, SINGLE, UNSPEC. 01/04/2009 [facility] PHD, ANA A V05.9 IMMUNIZATION, SINGLE, UNSPEC. 01/04/2009 MADL UNIVERSITY ADMINISTRATIVE ASSISTANT, JENNY L V05.9 IMMUNIZATION, SINGLE, UNSPEC. 01/04/2009 [facility] PHD, ANA A V05.9 IMMUNIZATION, SINGLE, UNSPEC. 01/04/2009 HELM DO, CHRIS K V05.9 IMMUNIZATION, SINGLE, UNSPEC. 01/04/2009 MADL UNIVERSITY ADMINISTRATIVE ASSISTANT, JENNY L V05.9 IMMUNIZATION, SINGLE, UNSPEC. 01/04/2009 MADL UNIVERSITY ADMINISTRATIVE ASSISTANT, JENNY L V05.9 IMMUNIZATION, SINGLE, UNSPEC. 01/04/2009 [facility] PHD, ANA A V05.9 IMMUNIZATION, SINGLE, UNSPEC. 01/04/2009 [facility] PHD, ANA A V05.9 IMMUNIZATION, SINGLE, UNSPEC. 01/04/2009 MADL UNIVERSITY ADMINISTRATIVE ASSISTANT, JENNY L V05.9 IMMUNIZATION, SINGLE, UNSPEC. 01/04/2009 MADL UNIVERSITY ADMINISTRATIVE ASSISTANT, JENNY L V05.9 IMMUNIZATION, SINGLE, UNSPEC. 01/04/2009 [...] DO, CHRIS K 729.2 RADICULOPATHY 03/30/2009 ALISA UNIVERSITY ADMINISTRATIVE ASSISTANT, DOMENIC A 729.2 RADICULOPATHY 03/30/2009 ZAIRE SWIFT, CAMMY B 729.2 RADICULOPATHY 03/30/2009 HELM DO, CHRIS K 729.2 RADICULOPATHY 03/30/2009 RAH PHD, ANA A 729.2 RADICULOPATHY 03/30/2009 ALISA UNIVERSITY ADMINISTRATIVE ASSISTANT, DOMENIC A 729.2 RADICULOPATHY 03/30/2009 MAD UNIVERSITY ADMINISTRATIVE ASSISTANT, JENNY L 729.2 RADICULOPATHY 03/30/2009 RAH PHD, ANA A 729.2 RADICULOPATHY 03/30/2009 RAH PHD, ANA A 729.2 RADICULOPATHY 03/30/2009 MAD UNIVERSITY ADMINISTRATIVE ASSISTANT, JENNY L 729.2 RADICULOPATHY 03/30/2009 GWEN STYLES MD 729.2 RADICULOPATHY 03/30/2009 RAH PHD, ANA A 729.2 RADICULOPATHY 03/30/2009 RAH PHD, ANA A 729.2 RADICULOPATHY 03/30/2009 RAH PHD, ANA A 729.2 RADICULOPATHY 03/30/2009 MADL UNIVERSITY ADMINISTRATIVE ASSISTANT, JENNY L 729.2 RADICULOPATHY 03/30/2009 RAH PHD, ANA A 729.2 RADICULOPATHY 03/30/2009 RAH PHD, ANA A 729.2 RADICULOPATHY 03/30/2009 MADL UNIVERSITY ADMINISTRATIVE ASSISTANT, JENNY L 729.2 RADICULOPATHY 03/30/2009 RAH PHD, ANA A 729.2 RADICULOPATHY 03/30/2009 HELM DO, CHRIS K 729.2 RADICULOPATHY 03/30/2009 MADL UNIVERSITY ADMINISTRATIVE ASSISTANT, JENNY L 729.2 RADICULOPATHY 03/30/2009 MADL UNIVERSITY ADMINISTRATIVE ASSISTANT, JENNY L 729.2 RADICULOPATHY 03/30/2009 RAH PHD, ANA A 729.2 RADICULOPATHY 03/30/2009 RAH PHD, ANA A 729.2 RADICULOPATHY 03/30/2009 MADL UNIVERSITY ADMINISTRATIVE ASSISTANT, JENNY L 729.2 RADICULOPATHY 03/30/2009 MADL UNIVERSITY ADMINISTRATIVE ASSISTANT, JENNY L 729.2 RADICULOPATHY 03/30/2009 HELM DO, [...] MD 296.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 07/25/2009 TIMI SNATOS MD 461.9 Sinusitis Acute 07/25/2009 TIMI SANTOS [...] CHRIS K 461.9 Sinusitis Acute 07/25/2009 ALISA UNIVERSITY ADMINISTRATIVE ASSISTANT, DOMENIC A 296.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 07/25/2009 ALISA UNIVERSITY ADMINISTRATIVE ASSISTANT, DOMENIC A 461.9 Sinusitis Acute 07/25/2009 ZAIRE CRITICAL POWER TECHNICIAN, CAMMY B 296.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 07/25/2009 ZAIRE CRITICAL POWER TECHNICIAN, CAMMY B 461.9 Sinusitis Acute 07/25/2009 HELM DO, CHRIS K 296.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 07/25/2009 HELM DO, CHRIS K 461.9 Sinusitis Acute 07/25/2009 ANA MONREAL PHD A 296.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 07/25/2009 ANA MONREAL PHD A 461.9 Sinusitis Acute 07/25/2009 ALISA UNIVERSITY ADMINISTRATIVE ASSISTANT, DOMENIC A 296.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 07/25/2009 ALISA UNIVERSITY ADMINISTRATIVE ASSISTANT, DOMENIC A 461.9 Sinusitis Acute 07/25/2009 MADL UNIVERSITY ADMINISTRATIVE ASSISTANT, JENNY L 296.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 07/25/2009 MADL UNIVERSITY ADMINISTRATIVE ASSISTANT, JENNY L 461.9 Sinusitis Acute 07/25/2009 ANA MONREAL PHD A 296.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 07/25/2009 ANA MONREAL PHD A 461.9 Sinusitis Acute 07/25/2009 ANA MONREAL PHD A 296.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 07/25/2009 ANA MONREAL PHD A 461.9 Sinusitis Acute 07/25/2009 MADL UNIVERSITY ADMINISTRATIVE ASSISTANT, JENNY L 296.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 07/25/2009 MADL UNIVERSITY ADMINISTRATIVE ASSISTANT, JENNY L 461.9 Sinusitis Acute 07/25/2009 GWEN [...] PHD A 461.9 Sinusitis Acute 07/25/2009 MADL UNIVERSITY ADMINISTRATIVE ASSISTANT, JENNY L 296.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 07/25/2009 MADL UNIVERSITY ADMINISTRATIVE ASSISTANT, JENNY L 461.9 Sinusitis Acute 07/25/2009 ANA MONREAL PHD A 296.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 07/25/2009 ANA MONREAL PHD 461.9 Sinusitis Acute 07/25/2009 ANA MONREAL PHD A 296.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 07/25/2009 ANA MONREAL PHD 461.9 Sinusitis Acute 07/25/2009 MADL UNIVERSITY ADMINISTRATIVE ASSISTANT, JENNY L 296.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 07/25/2009 MADL UNIVERSITY ADMINISTRATIVE ASSISTANT, JENNY L 461.9 Sinusitis Acute 07/25/2009 ANA MONREAL PHD A 296.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 07/25/2009 ANA MONREAL PHD A 461.9 Sinusitis Acute 07/25/2009 HELM DO, CHRIS K 296.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 07/25/2009 HELM DO, CHRIS K 461.9 Sinusitis Acute 07/25/2009 MADL UNIVERSITY ADMINISTRATIVE ASSISTANT, JENNY L 296.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 07/25/2009 MADL UNIVERSITY ADMINISTRATIVE ASSISTANT, JENNY L 461.9 Sinusitis Acute 07/25/2009 MADL UNIVERSITY ADMINISTRATIVE ASSISTANT, JENNY L 296.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 07/25/2009 MADL UNIVERSITY ADMINISTRATIVE ASSISTANT, JENNY L 461.9 Sinusitis Acute 07/25/2009 ANA MONREAL PHD A 296.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 07/25/2009 ANA MONREAL PHD 461.9 Sinusitis Acute 07/25/2009 RAH SIFUENTES ANA Servin 296.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 07/25/2009 RAH SIFUENTES, ANA A 461.9 Sinusitis Acute 07/25/2009 MADL UNIVERSITY ADMINISTRATIVE ASSISTANT, JENNY L 296.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 07/25/2009 MADL UNIVERSITY ADMINISTRATIVE ASSISTANT, JENNY L 461.9 Sinusitis Acute 07/25/2009 MADL UNIVERSITY ADMINISTRATIVE ASSISTANT, JENNY L 296.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 07/25/2009 MADL UNIVERSITY ADMINISTRATIVE ASSISTANT, JENNY L 461.9 Sinusitis Acute 07/25/2009 HELM [...] 296.30 MO DEPRESSIVE RECURRENT UNSPECIFIED 07/28/2009 ZAIRE CRITICAL POWER TECHNICIAN, CAMMY B 300.00 anxiety 07/28/2009 ZAIREPENNY SWIFT, CAMMY B 307.47 SI DYSSOMNIA NOS 07/28/2009 ZAIRE CRITICAL POWER TECHNICIAN, CAMMY B 316 PF PSYCHIC FACTORS MED [...] PF PSYCHIC FACTORS MED COND 07/28/2009 TIMI SANTSO MD 296.30 MO DEPRESSIVE RECURRENT UNSPECIFIED 07/28/2009 [...] QUIROZN, DOMENIC A 300.00 anxiety 07/28/2009 ALISA UNIVERSITY ADMINISTRATIVE ASSISTANT, DOMENIC A 307.47 SI DYSSOMNIA NOS 07/28/2009 ALISA QUIROZN, DOMENIC A 316 PF PSYCHIC FACTORS MED COND 07/28/2009 ZAIRE CRITICAL POWER TECHNICIAN, CAMMY B 296.30 MO DEPRESSIVE RECURRENT UNSPECIFIED 07/28/2009 ZAIRE CRITICAL POWER TECHNICIAN, CAMMY B 300.00 anxiety 07/28/2009 ZAIRE CRITICAL POWER TECHNICIAN, CAMMY B 307.47 SI DYSSOMNIA NOS 07/28/2009 ZAIRE CRITICAL POWER TECHNICIAN, CAMMY B 316 PF PSYCHIC FACTORS MED [...] DOMENIC A 300.00 anxiety 07/28/2009 ALISA QUIROZN, DOEMNIC A 307.47 SI DYSSOMNIA NOS 07/28/2009 ALISA QUIROZN, DOMENIC A 316 PF PSYCHIC FACTORS MED COND 07/28/2009 MADL UNIVERSITY ADMINISTRATIVE ASSISTANT, JENNY L 296.30 MO DEPRESSIVE RECURRENT UNSPECIFIED 07/28/2009 MADL UNIVERSITY ADMINISTRATIVE ASSISTANT, JENNY L 300.00 anxiety 07/28/2009 MADL UNIVERSITY ADMINISTRATIVE ASSISTANT, JENNY L 307.47 SI DYSSOMNIA NOS 07/28/2009 MADL UNIVERSITY ADMINISTRATIVE ASSISTANT, JENNY L 316 PF PSYCHIC FACTORS MED [...] PF PSYCHIC FACTORS MED COND 07/28/2009 MADL UNIVERSITY ADMINISTRATIVE ASSISTANT, JENNY L 296.30 MO DEPRESSIVE RECURRENT UNSPECIFIED 07/28/2009 MADL UNIVERSITY ADMINISTRATIVE ASSISTANT, JENNY L 300.00 anxiety 07/28/2009 MADL UNIVERSITY ADMINISTRATIVE ASSISTANT, JENNY L 307.47 SI DYSSOMNIA NOS 07/28/2009 MADL UNIVERSITY ADMINISTRATIVE ASSISTANT, JENNY L 316 PF PSYCHIC FACTORS MED [...] PF PSYCHIC FACTORS MED COND 07/28/2009 MADL UNIVERSITY ADMINISTRATIVE ASSISTANT, JENNY L 296.30 MO DEPRESSIVE RECURRENT UNSPECIFIED 07/28/2009 MADL UNIVERSITY ADMINISTRATIVE ASSISTANT, JENNY L 300.00 anxiety 07/28/2009 MADL UNIVERSITY ADMINISTRATIVE ASSISTANT, JENNY L 307.47 SI DYSSOMNIA NOS 07/28/2009 MADL UNIVERSITY ADMINISTRATIVE ASSISTANT, JENNY L 316 PF PSYCHIC FACTORS MED [...] PF PSYCHIC FACTORS MED COND 07/28/2009 MADL UNIVERSITY ADMINISTRATIVE ASSISTANT, JENNY L 296.30 MO DEPRESSIVE RECURRENT UNSPECIFIED 07/28/2009 MADL UNIVERSITY ADMINISTRATIVE ASSISTANT, JENNY L 300.00 anxiety 07/28/2009 MADL UNIVERSITY ADMINISTRATIVE ASSISTANT, JENNY L 307.47 SI DYSSOMNIA NOS 07/28/2009 MADL UNIVERSITY ADMINISTRATIVE ASSISTANT, JENNY L 316 PF PSYCHIC FACTORS MED [...] PF PSYCHIC FACTORS MED COND 07/28/2009 MADL UNIVERSITY ADMINISTRATIVE ASSISTANT, JENNY L 296.30 MO DEPRESSIVE RECURRENT UNSPECIFIED 07/28/2009 MADL UNIVERSITY ADMINISTRATIVE ASSISTANT, JENNY L 300.00 anxiety 07/28/2009 MADL UNIVERSITY ADMINISTRATIVE ASSISTANT, JENNY L 307.47 SI DYSSOMNIA NOS 07/28/2009 MADL UNIVERSITY ADMINISTRATIVE ASSISTANT, JENNY L 316 PF PSYCHIC FACTORS MED COND 07/28/2009 MADL UNIVERSITY ADMINISTRATIVE ASSISTANT, JENNY L 296.30 MO DEPRESSIVE RECURRENT UNSPECIFIED 07/28/2009 MADL UNIVERSITY ADMINISTRATIVE ASSISTANT, JENNY L 300.00 anxiety 07/28/2009 MADL UNIVERSITY ADMINISTRATIVE ASSISTANT, JENNY L 307.47 SI DYSSOMNIA NOS 07/28/2009 MADL UNIVERSITY ADMINISTRATIVE ASSISTANT, JENNY L 316 PF PSYCHIC FACTORS MED [...] PF PSYCHIC FACTORS MED COND 07/28/2009 MADL UNIVERSITY ADMINISTRATIVE ASSISTANT, JENNY L 296.30 MO DEPRESSIVE RECURRENT UNSPECIFIED 07/28/2009 MADL UNIVERSITY ADMINISTRATIVE ASSISTANT, JENNY L 300.00 anxiety 07/28/2009 MADL UNIVERSITY ADMINISTRATIVE ASSISTANT, JENNY L 307.47 SI DYSSOMNIA NOS 07/28/2009 MADL UNIVERSITY ADMINISTRATIVE ASSISTANT, JENNY L 316 PF PSYCHIC FACTORS MED COND 07/28/2009 MADL UNIVERSITY ADMINISTRATIVE ASSISTANT, JENNY L 296.30 MO DEPRESSIVE RECURRENT UNSPECIFIED 07/28/2009 MADL UNIVERSITY ADMINISTRATIVE ASSISTANT, JENNY L 300.00 anxiety 07/28/2009 MADL UNIVERSITY ADMINISTRATIVE ASSISTANT, JENNY L 307.47 SI DYSSOMNIA NOS 07/28/2009 MADL UNIVERSITY ADMINISTRATIVE ASSISTANT, JENNY L 316 PF PSYCHIC FACTORS MED [...] 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 BEHAVIOR 08/31/2009 TIMI SNATOS MD 300.01 AN PANIC DIS W/O AGORA [...] AN PANIC DIS W/O AGORA 08/31/2009 MADBrown UNIVERSITY ADMINISTRATIVE ASSISTANT, JENNY L 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 08/31/2009 MADBrown UNIVERSITY ADMINISTRATIVE ASSISTANT, JENNY L 300.01 AN PANIC DIS W/O AGORA 08/31/2009 ANA MONREAL PHD 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 08/31/2009 ANA MONREAL PHD 300.01 AN PANIC DIS W/O AGORA 08/31/2009 ANA MONREAL PHD 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 08/31/2009 BOEKHOUT PHD, ANA A 300.01 AN PANIC DIS W/O AGORA 08/31/2009 MADL UNIVERSITY ADMINISTRATIVE ASSISTANT, JENNY L 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 08/31/2009 MADL UNIVERSITY ADMINISTRATIVE ASSISTANT, JENNY L 300.01 AN PANIC DIS W/O [...] AN PANIC DIS W/O AGORA 08/31/2009 MADL UNIVERSITY ADMINISTRATIVE ASSISTANT, JENNY L 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 08/31/2009 MADL UNIVERSITY ADMINISTRATIVE ASSISTANT, JENNY L 300.01 AN PANIC DIS W/O AGORA 08/31/2009 RAH SIFUENTES, NAA A 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 08/31/2009 RAH SIFUENTES, ANA A 300.01 AN PANIC DIS W/O AGORA 08/31/2009 RAH SIFUENTES, ANA A 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 08/31/2009 RAH SIFUENTES, ANA A 300.01 AN PANIC DIS W/O AGORA 08/31/2009 MADL UNIVERSITY ADMINISTRATIVE ASSISTANT, JENNY L 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 08/31/2009 MAD UNIVERSITY ADMINISTRATIVE ASSISTANT, JENNY L 300.01 AN PANIC DIS W/O AGORA 08/31/2009 ANA MONREAL PHD A 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 08/31/2009 RAH SIFUENTES, ANA A 300.01 AN PANIC DIS W/O AGORA 08/31/2009 CHRIS HELM DO K 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 08/31/2009 CHRIS HELM DO 300.01 AN PANIC DIS W/O AGORA 08/31/2009 MADL UNIVERSITY ADMINISTRATIVE ASSISTANT, JENNY L 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 08/31/2009 MADL UNIVERSITY ADMINISTRATIVE ASSISTANT, JENNY L 300.01 AN PANIC DIS W/O AGORA 08/31/2009 MADL UNIVERSITY ADMINISTRATIVE ASSISTANT, JENNY L 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 08/31/2009 MADL UNIVERSITY ADMINISTRATIVE ASSISTANT, JENNY L 300.01 AN PANIC DIS W/O AGORA 08/31/2009 RAH SIFUENTES, ANA A 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 08/31/2009 RAH PHD, ANA A 300.01 AN PANIC DIS W/O AGORA 08/31/2009 RAH PHD, ANA A 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 08/31/2009 RAH PHD, ANA A 300.01 AN PANIC DIS W/O AGORA 08/31/2009 MADL UNIVERSITY ADMINISTRATIVE ASSISTANT, JENNY L 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 08/31/2009 MADL UNIVERSITY ADMINISTRATIVE ASSISTANT, JENNY L 300.01 AN PANIC DIS W/O AGORA 08/31/2009 MADL UNIVERSITY ADMINISTRATIVE ASSISTANT, JENNY L 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 08/31/2009 MAD UNIVERSITY ADMINISTRATIVE ASSISTANT, JENNY L 300.01 AN PANIC DIS W/O [...] Servin V58.69 TAKING HIGH-RISK MEDICATION 11/21/2009 LUCIANO UNIVERSITY ADMINISTRATIVE ASSISTANT, JENNY L V58.69 TAKING HIGH-RISK MEDICATION 11/21/2009 RAH PHD, ANA Servin V58.69 TAKING HIGH-RISK MEDICATION 11/21/2009 CHRIS HELM DO K V58.69 TAKING HIGH-RISK MEDICATION 11/21/2009 LUCIANO UNIVERSITY ADMINISTRATIVE ASSISTANT, JENNY L V58.69 TAKING HIGH-RISK MEDICATION 11/21/2009 LUCIANO UNIVERSITY ADMINISTRATIVE ASSISTANT, JENNY L V58.69 TAKING HIGH-RISK MEDICATION 11/21/2009 RAH PHD, ANA A V58.69 TAKING HIGH-RISK MEDICATION 11/21/2009 RAH PHD, ANA Servin V58.69 TAKING HIGH-RISK MEDICATION 11/21/2009 LUCIANO UNIVERSITY ADMINISTRATIVE ASSISTANT, JENNY L V58.69 TAKING HIGH-RISK MEDICATION 11/21/2009 [...] CUELLAR APRN A 787.91 diarrhea 01/05/2010 MADL UNIVERSITY ADMINISTRATIVE ASSISTANT, JENNY L 787.91 diarrhea [facility]/05/2010 [facility] A 787.91 diarrhea 01/05/2010 [facility], ANA A 787.91 diarrhea 01/05/2010 MADL UNIVERSITY ADMINISTRATIVE ASSISTANT, JENNY L 787.91 diarrhea 01/05/2010 JENSEN TREVINO, GWEN 787.91 diarrhea 01/05/2010 [facility] PHD, ANA A 787.91 diarrhea 01/05/2010 [facility] PHD, ANA A 787.91 diarrhea 01/05/2010 [facility] PHD, ANA A 787.91 diarrhea 01/05/2010 MADL UNIVERSITY ADMINISTRATIVE ASSISTANT, JENNY L 787.91 diarrhea 01/05/2010 [facility], ANA A 787.91 diarrhea 01/05/2010 [facility] PHD, ANA A 787.91 diarrhea 01/05/2010 MADL UNIVERSITY ADMINISTRATIVE ASSISTANT, JENNY L 787.91 diarrhea 01/05/2010 RAH PHD, ANA A 787.91 diarrhea 01/05/2010 HELM DO, CHRIS K 787.91 diarrhea 01/05/2010 MADL UNIVERSITY ADMINISTRATIVE ASSISTANT, JENNY L 787.91 diarrhea 01/05/2010 MADL UNIVERSITY ADMINISTRATIVE ASSISTANT, JENNY L 787.91 diarrhea 01/05/2010 [facility], ANA A 787.91 diarrhea 01/05/2010 [facility] PHD, ANA A 787.91 diarrhea 01/05/2010 MADL UNIVERSITY ADMINISTRATIVE ASSISTANT, JENNY L 787.91 diarrhea 01/05/2010 MADL UNIVERSITY ADMINISTRATIVE ASSISTANT, JENNY L 787.91 diarrhea 01/05/2010 HELM DO, [...] LCPC 789.00 abdominal pain 01/17/2010 TOM TREVINO, ITMI Vigil4.1 IRRITABLE BOWEL SYNDROME 01/17/2010 TOM TREVINO, [...] TREVINO, TIMI Vigil4.1 IRRITABLE BOWEL SYNDROME 01/17/2010 TMO TREVINO, TIMI 789.00 abdominal pain 01/17/2010 HELM [...] APRNIDI A 789.00 abdominal pain 01/17/2010 MADL UNIVERSITY ADMINISTRATIVE ASSISTANT, JENNY L 564.1 IRRITABLE BOWEL SYNDROME 01/17/2010 MADL UNIVERSITY ADMINISTRATIVE ASSISTANT, JENNY L 789.00 abdominal pain 01/17/2010 BOEOUT PHD, ANA A 564.1 IRRITABLE BOWEL SYNDROME 01/17/2010 BOEKHOUT PHD, ANA A 789.00 abdominal pain 01/17/2010 BOEOUT PHD, ANA A 564.1 IRRITABLE BOWEL SYNDROME 01/17/2010 [facility]EOUT PHD, ANA A 789.00 abdominal pain 01/17/2010 MADL UNIVERSITY ADMINISTRATIVE ASSISTANT, JENNY L 564.1 IRRITABLE BOWEL SYNDROME 01/17/2010 MADL UNIVERSITY ADMINISTRATIVE ASSISTANT, JENNY L 789.00 abdominal pain 01/17/2010 JENSEN [...] ANA A 789.00 abdominal pain 01/17/2010 MADL UNIVERSITY ADMINISTRATIVE ASSISTANT, JENNY L 564.1 IRRITABLE BOWEL SYNDROME 01/17/2010 MADL UNIVERSITY ADMINISTRATIVE ASSISTANT, JENNY L 789.00 abdominal pain 01/17/2010 BOEOUT PHD, ANA A 564.1 IRRITABLE BOWEL SYNDROME 01/17/2010 BOEOUT PHD, ANA A 789.00 abdominal pain 01/17/2010 BOEOUT PHD, ANA A 564.1 IRRITABLE BOWEL SYNDROME 01/17/2010 BOEOUT PHD, ANA A 789.00 abdominal pain 01/17/2010 MADL UNIVERSITY ADMINISTRATIVE ASSISTANT, JENNY L 564.1 IRRITABLE BOWEL SYNDROME 01/17/2010 MADL UNIVERSITY ADMINISTRATIVE ASSISTANT, JENNY L 789.00 abdominal pain 01/17/2010 BOEKHOUT PHD, ANA A 564.1 IRRITABLE BOWEL SYNDROME 01/17/2010 RAH PHD, ANA A 789.00 abdominal pain 01/17/2010 HELM DO, CHRIS K 564.1 IRRITABLE BOWEL SYNDROME 01/17/2010 HELM DO, CHRIS K 789.00 abdominal pain 01/17/2010 MADL UNIVERSITY ADMINISTRATIVE ASSISTANT, JENNY L 564.1 IRRITABLE BOWEL SYNDROME 01/17/2010 MADL UNIVERSITY ADMINISTRATIVE ASSISTANT, JENNY L 789.00 abdominal pain 01/17/2010 MADL UNIVERSITY ADMINISTRATIVE ASSISTANT, JENNY L 564.1 IRRITABLE BOWEL SYNDROME 01/17/2010 MADL UNIVERSITY ADMINISTRATIVE ASSISTANT, JENNY L 789.00 abdominal pain 01/17/2010 RAH PHD, ANA A 564.1 IRRITABLE BOWEL SYNDROME 01/17/2010 RAH PHD, ANA A 789.00 abdominal pain 01/17/2010 RAH PHD, ANA A 564.1 IRRITABLE BOWEL SYNDROME 01/17/2010 [facility], A[facility] A 789.00 abdominal pain 01/17/2010 MADL UNIVERSITY ADMINISTRATIVE ASSISTANT, JENNY L 564.1 IRRITABLE BOWEL SYNDROME 01/17/2010 MADL UNIVERSITY ADMINISTRATIVE ASSISTANT, JENNY L 789.00 abdominal pain 01/17/2010 MADL UNIVERSITY ADMINISTRATIVE ASSISTANT, JENNY L 564.1 IRRITABLE BOWEL SYNDROME 01/17/2010 MADL UNIVERSITY ADMINISTRATIVE ASSISTANT, JENNY L 789.00 abdominal pain 01/17/2010 HELM [...] DO, CHRIS K 307.40 INSOMNIA 05/02/2010 ALISA UNIVERSITY ADMINISTRATIVE ASSISTANT, DOMENIC A 307.40 INSOMNIA 05/02/2010 CAMMY TAI LCPC 307.40 INSOMNIA 05/02/2010 HELM DO, CHRIS K 307.40 INSOMNIA 05/02/2010 RAH PHD, ANA Servin 307.40 INSOMNIA 05/02/2010 ALISA UNIVERSITY ADMINISTRATIVE ASSISTANT, DOMENIC A 307.40 INSOMNIA 05/02/2010 MADL UNIVERSITY ADMINISTRATIVE ASSISTANT, JENNY L 307.40 INSOMNIA 05/02/2010 RAH PHD, ANA Servin 307.40 INSOMNIA 05/02/2010 RAH PHD, ANA Servin 307.40 INSOMNIA 05/02/2010 MADL UNIVERSITY ADMINISTRATIVE ASSISTANT, JENNY L 307.40 INSOMNIA 05/02/2010 JENSEN TREVINO, GWEN 307.40 INSOMNIA 05/02/2010 RAH PHD, ANA Servin 307.40 INSOMNIA 05/02/2010 RAH PHD, ANA A 307.40 INSOMNIA 05/02/2010 RAH PHD, ANA A 307.40 INSOMNIA 05/02/2010 MADL UNIVERSITY ADMINISTRATIVE ASSISTANT, JENNY L 307.40 INSOMNIA 05/02/2010 [facility] PHD, ANA A 307.40 INSOMNIA 05/02/2010 RAH PHD, ANA A 307.40 INSOMNIA 05/02/2010 MADL UNIVERSITY ADMINISTRATIVE ASSISTANT, JENNY L 307.40 INSOMNIA 05/02/2010 RAH PHD, ANA Servin 307.40 INSOMNIA 05/02/2010 HELM DO, CHRIS K 307.40 INSOMNIA 05/02/2010 MADL UNIVERSITY ADMINISTRATIVE ASSISTANT, JENNY L 307.40 INSOMNIA 05/02/2010 MADL UNIVERSITY ADMINISTRATIVE ASSISTANT, JENNY L 307.40 INSOMNIA 05/02/2010 RAH PHD, ANA Servin 307.40 INSOMNIA 05/02/2010 RAH PHD, ANA Servin 307.40 INSOMNIA 05/02/2010 MADL UNIVERSITY ADMINISTRATIVE ASSISTANT, JENNY L 307.40 INSOMNIA 05/02/2010 MADL UNIVERSITY ADMINISTRATIVE ASSISTANT, JENNY L 307.40 INSOMNIA 05/02/2010 HELM DO, [...] ANA A 706.1 OTHER ACNE 07/10/2010 ALISA UNIVERSITY ADMINISTRATIVE ASSISTANT, DOMENIC A 706.1 OTHER ACNE 07/10/2010 MADL UNIVERSITY ADMINISTRATIVE ASSISTANT, JENNY L 706.1 OTHER ACNE 07/10/2010 RAH PHD, ANA A 706.1 OTHER ACNE 07/10/2010 RAH PHD, ANA A 706.1 OTHER ACNE 07/10/2010 MADL UNIVERSITY ADMINISTRATIVE ASSISTANT, JENNY L 706.1 OTHER ACNE 07/10/2010 GWEN STYLES MD 706.1 OTHER ACNE 07/10/2010 RAH PHD, ANA A 706.1 OTHER ACNE 07/10/2010 B[facility]OUT PHD, ANA A 706.1 OTHER ACNE 07/10/2010 RAH PHD, ANA A 706.1 OTHER ACNE 07/10/2010 MADL UNIVERSITY ADMINISTRATIVE ASSISTANT, JENNY L 706.1 OTHER ACNE 07/10/2010 RAH PHD, ANA A 706.1 OTHER ACNE 07/10/2010 RAH PHD, ANA A 706.1 OTHER ACNE 07/10/2010 MADL UNIVERSITY ADMINISTRATIVE ASSISTANT, JENNY L 706.1 OTHER ACNE 07/10/2010 RAH PHD, ANA A 706.1 OTHER ACNE 07/10/2010 HELM DO, CHRIS K 706.1 OTHER ACNE 07/10/2010 MADL UNIVERSITY ADMINISTRATIVE ASSISTANT, JENNY L 706.1 OTHER ACNE 07/10/2010 MADL UNIVERSITY ADMINISTRATIVE ASSISTANT, JENNY L 706.1 OTHER ACNE 07/10/2010 RAH PHD, ANA A 706.1 OTHER ACNE 07/10/2010 RAH PHD, ANA A 706.1 OTHER ACNE 07/10/2010 MADL UNIVERSITY ADMINISTRATIVE ASSISTANT, JENNY L 706.1 OTHER ACNE 07/10/2010 MADL UNIVERSITY ADMINISTRATIVE ASSISTANT, JENNY L 706.1 OTHER ACNE 07/10/2010 HELM [...] SANTOS MD 701.9 Skin Tag 07/11/2010 ZAIRE CRITICAL POWER TECHNICIAN, CAMMY B 239.2 Skin Neoplam 07/11/2010 ZAIRE CRITICAL POWER TECHNICIAN, CAMMY B 701.9 Skin Tag 07/11/2010 TIMI [...] CHRIS K 701.9 Skin Tag 07/11/2010 ALISA UNIVERSITY ADMINISTRATIVE ASSISTANT, DOMENIC A 239.2 Skin Neoplam 07/11/2010 ALISA UNIVERSITY ADMINISTRATIVE ASSISTANT, DOMENIC A 701.9 Skin Tag 07/11/2010 ZAIRE CRITICAL POWER TECHNICIAN, CAMMY B 239.2 Skin Neoplam 07/11/2010 ZAIRE CRITICAL POWER TECHNICIAN, CAMMY B 701.9 Skin Tag 07/11/2010 HELM DO, CHRIS K 239.2 Skin Neoplam 07/11/2010 HELM DO, CHRIS K 701.9 Skin Tag 07/11/2010 RAH PHD, ANA A 239.2 Skin Neoplam 07/11/2010 RAH PHD, ANA A 701.9 Skin Tag 07/11/2010 ALISA UNIVERSITY ADMINISTRATIVE ASSISTANT, DOMENIC A 239.2 Skin Neoplam 07/11/2010 ALISA UNIVERSITY ADMINISTRATIVE ASSISTANT, DOMENIC A 701.9 Skin Tag 07/11/2010 MADL UNIVERSITY ADMINISTRATIVE ASSISTANT, JENNY L 239.2 Skin Neoplam 07/11/2010 MADL UNIVERSITY ADMINISTRATIVE ASSISTANT, JENNY L 701.9 Skin Tag 07/11/2010 RAH PHD, ANA A 239.2 Skin Neoplam 07/11/2010 RAH PHD, ANA A 701.9 Skin Tag 07/11/2010 RAH PHD, ANA A 239.2 Skin Neoplam 07/11/2010 RAH PHD, ANA A 701.9 Skin Tag 07/11/2010 MADL UNIVERSITY ADMINISTRATIVE ASSISTANT, JENNY L 239.2 Skin Neoplam 07/11/2010 MADL UNIVERSITY ADMINISTRATIVE ASSISTANT, JENNY L 701.9 Skin Tag 07/11/2010 JENSEN [...] ANA A 701.9 Skin Tag 07/11/2010 MADL UNIVERSITY ADMINISTRATIVE ASSISTANT, JENNY L 239.2 Skin Neoplam 07/11/2010 MADL UNIVERSITY ADMINISTRATIVE ASSISTANT, JENNY L 701.9 Skin Tag 07/11/2010 RAH PHD, ANA A 239.2 Skin Neoplam 07/11/2010 RAH PHD, ANA A 701.9 Skin Tag 07/11/2010 RAH PHD, ANA A 239.2 Skin Neoplam 07/11/2010 RAH PHD, ANA A 701.9 Skin Tag 07/11/2010 MADL UNIVERSITY ADMINISTRATIVE ASSISTANT, JENNY L 239.2 Skin Neoplam 07/11/2010 MADL UNIVERSITY ADMINISTRATIVE ASSISTANT, JENNY L 701.9 Skin Tag 07/11/2010 RAH PHD, ANA A 239.2 Skin Neoplam 07/11/2010 RAH PHD, ANA A 701.9 Skin Tag 07/11/2010 HELM DO, CHRIS K 239.2 Skin Neoplam 07/11/2010 HELM DO, CHRIS K 701.9 Skin Tag 07/11/2010 MADL UNIVERSITY ADMINISTRATIVE ASSISTANT, JENNY L 239.2 Skin Neoplam 07/11/2010 MADL UNIVERSITY ADMINISTRATIVE ASSISTANT, JENNY L 701.9 Skin Tag 07/11/2010 MADL UNIVERSITY ADMINISTRATIVE ASSISTANT, JENNY L 239.2 Skin Neoplam 07/11/2010 MADL UNIVERSITY ADMINISTRATIVE ASSISTANT, JENNY L 701.9 Skin Tag 07/11/2010 RAH PHD, ANA A 239.2 Skin Neoplam 07/11/2010 RAH PHD, ANA A 701.9 Skin Tag 07/11/2010 RAH PHD, ANA A 239.2 Skin Neoplam 07/11/2010 RAH PHD, ANA Servin 701.9 Skin Tag 07/11/2010 MADL UNIVERSITY ADMINISTRATIVE ASSISTANT, JENNY L 239.2 Skin Neoplam 07/11/2010 MADL UNIVERSITY ADMINISTRATIVE ASSISTANT, JENNY L 701.9 Skin Tag 07/11/2010 MADL UNIVERSITY ADMINISTRATIVE ASSISTANT, JENNY L 239.2 Skin Neoplam 07/11/2010 MADL UNIVERSITY ADMINISTRATIVE ASSISTANT, JENNY L 701.9 Skin Tag 07/11/2010 HELM [...] A 338.4 CHRONIC PAIN SYNDROME 08/08/2010 LUCIANO UNIVERSITY ADMINISTRATIVE ASSISTANT, JENNY L 338.4 CHRONIC PAIN SYNDROME 08/08/2010 RAH SIFUENTES, ANA Servin 338.4 CHRONIC PAIN SYNDROME 08/08/2010 RAH SIFUENTES, ANA Servin 338.4 CHRONIC PAIN SYNDROME 08/08/2010 LUCIANO UNIVERSITY ADMINISTRATIVE ASSISTANT, JENNY L 338.4 CHRONIC PAIN SYNDROME 08/08/2010 JENSEN TREVINO, GWEN 338.4 CHRONIC PAIN SYNDROME 08/08/2010 BOEJOANN PHD, ANA A 338.4 CHRONIC PAIN SYNDROME 08/08/2010 BOEJOANN PHD, ANA A 338.4 CHRONIC PAIN SYNDROME 08/08/2010 BOEJOANN PHD, ANA A 338.4 CHRONIC PAIN SYNDROME 08/08/2010 MADL UNIVERSITY ADMINISTRATIVE ASSISTANT, JENNY L 338.4 CHRONIC PAIN SYNDROME 08/08/2010 BOEJOANN PHD, ANA A 338.4 CHRONIC PAIN SYNDROME 08/08/2010 BOEJOANN PHD, ANA A 338.4 CHRONIC PAIN SYNDROME 08/08/2010 MADL UNIVERSITY ADMINISTRATIVE ASSISTANT, JENNY L 338.4 CHRONIC PAIN SYNDROME 08/08/2010 BOEJOANN PHD, ANA A 338.4 CHRONIC PAIN SYNDROME 08/08/2010 HELM DO CHRIS K 338.4 CHRONIC PAIN SYNDROME 08/08/2010 MADL UNIVERSITY ADMINISTRATIVE ASSISTANT, JENNY L 338.4 CHRONIC PAIN SYNDROME 08/08/2010 MADL UNIVERSITY ADMINISTRATIVE ASSISTANT, JENNY L 338.4 CHRONIC PAIN SYNDROME 08/08/2010 BOEJOANN PHD, ANA A 338.4 CHRONIC PAIN SYNDROME 08/08/2010 BOEJOANN PHD, ANA A 338.4 CHRONIC PAIN SYNDROME 08/08/2010 MADL UNIVERSITY ADMINISTRATIVE ASSISTANT, JENNY L 338.4 CHRONIC PAIN SYNDROME 08/08/2010 MADL UNIVERSITY ADMINISTRATIVE ASSISTANT, JENNY L 338.4 CHRONIC PAIN SYNDROME 08/08/2010 HELM DO CHRIS K 338.4 CHRONIC PAIN SYNDROME 09/29/2010 Ot 784.0 10/09/2010 307.81 HEADACHE, TENSION 10/09/2010 346.90 MIGRAINE HEADACHE 10/09/2010 HELM DO, CHRIS K 307.81 HEADACHE, TENSION 10/09/2010 HELM DO, HCRIS K 346.90 MIGRAINE HEADACHE 10/09/2010 307.81 HEADACHE, TENSION 10/09/2010 346.90 MIGRAINE HEADACHE 10/09/2010 HELM DO, CHRIS K 307.81 HEADACHE, TENSION 10/09/2010 HELM DO, CHRIS K 346.90 MIGRAINE HEADACHE 10/09/2010 TIMI SANTOS MD 307.81 HEADACHE, TENSION 10/09/2010 TIMI SANTOS MD 346.90 MIGRAINE HEADACHE 10/09/2010 ZAIRE CRITICAL POWER TECHNICIAN, CAMMY B 307.81 HEADACHE, TENSION 10/09/2010 ZAIRE CRITICAL POWER TECHNICIAN, CAMMY B 346.90 MIGRAINE HEADACHE 10/09/2010 TOM [...] CHRIS K 346.90 MIGRAINE HEADACHE 10/09/2010 ALISA UNIVERSITY ADMINISTRATIVE ASSISTANT, DOMENIC A 307.81 HEADACHE, TENSION 10/09/2010 ALISA UNIVERSITY ADMINISTRATIVE ASSISTANT, DOMENIC A 346.90 MIGRAINE HEADACHE 10/09/2010 ZAIRE CRITICAL POWER TECHNICIAN, CAMMY B 307.81 HEADACHE, TENSION 10/09/2010 ZAIRE CRITICAL POWER TECHNICIAN, CAMMY B 346.90 MIGRAINE HEADACHE 10/09/2010 HELM DO, CHRIS K 307.81 HEADACHE, TENSION 10/09/2010 HELM DO, CHRIS K 346.90 MIGRAINE HEADACHE 10/09/2010 RAH PHD, ANA A 307.81 HEADACHE, TENSION 10/09/2010 RAH PHD, ANA A 346.90 MIGRAINE HEADACHE 10/09/2010 ALISA UNIVERSITY ADMINISTRATIVE ASSISTANT, DOMENIC A 307.81 HEADACHE, TENSION 10/09/2010 ALISA UNIVERSITY ADMINISTRATIVE ASSISTANT, DOMENIC A 346.90 MIGRAINE HEADACHE 10/09/2010 MADL UNIVERSITY ADMINISTRATIVE ASSISTANT, JENNY L 307.81 HEADACHE, TENSION 10/09/2010 MADL UNIVERSITY ADMINISTRATIVE ASSISTANT, JENNY L 346.90 MIGRAINE HEADACHE 10/09/2010 RAH PHD, ANA A 307.81 HEADACHE, TENSION 10/09/2010 RAH PHD, ANA A 346.90 MIGRAINE HEADACHE 10/09/2010 RAH PHD, ANA A 307.81 HEADACHE, TENSION 10/09/2010 BOEKHOUT PHD, ANA A 346.90 MIGRAINE HEADACHE 10/09/2010 MADL UNIVERSITY ADMINISTRATIVE ASSISTANT, JENNY L 307.81 HEADACHE, TENSION 10/09/2010 MADL UNIVERSITY ADMINISTRATIVE ASSISTANT, JENNY L 346.90 MIGRAINE HEADACHE 10/09/2010 JENSEN [...] ANA A 346.90 MIGRAINE HEADACHE 10/09/2010 MADL UNIVERSITY ADMINISTRATIVE ASSISTANT, JENNY L 307.81 HEADACHE, TENSION 10/09/2010 MADL UNIVERSITY ADMINISTRATIVE ASSISTANT, JENNY L 346.90 MIGRAINE HEADACHE 10/09/2010 BOEKHOUT PHD, ANA A 307.81 HEADACHE, TENSION 10/09/2010 BOEKHOUT PHD, ANA A 346.90 MIGRAINE HEADACHE 10/09/2010 BOE[facility] PHD, ANA A 307.81 HEADACHE, TENSION 10/09/2010 BOEKHOUT PHD, ANA A 346.90 MIGRAINE HEADACHE 10/09/2010 MADL UNIVERSITY ADMINISTRATIVE ASSISTANT, JENNY L 307.81 HEADACHE, TENSION 10/09/2010 MADL UNIVERSITY ADMINISTRATIVE ASSISTANT, JENNY L 346.90 MIGRAINE HEADACHE 10/09/2010 BOEKHOUT PHD, ANA A 307.81 HEADACHE, TENSION 10/09/2010 BOEKHOUT PHD, ANA A 346.90 MIGRAINE HEADACHE 10/09/2010 HELM DO, CHRIS K 307.81 HEADACHE, TENSION 10/09/2010 HELM DO, CHRIS K 346.90 MIGRAINE HEADACHE 10/09/2010 MADL UNIVERSITY ADMINISTRATIVE ASSISTANT, JENNY L 307.81 HEADACHE, TENSION 10/09/2010 MADL UNIVERSITY ADMINISTRATIVE ASSISTANT, JENNY L 346.90 MIGRAINE HEADACHE 10/09/2010 MADL UNIVERSITY ADMINISTRATIVE ASSISTANT, JENNY L 307.81 HEADACHE, TENSION 10/09/2010 MADL UNIVERSITY ADMINISTRATIVE ASSISTANT, JENNY L 346.90 MIGRAINE HEADACHE 10/09/2010 RAH PHD, ANA A 307.81 HEADACHE, TENSION 10/09/2010 [facility], ANA A 346.90 MIGRAINE HEADACHE 10/09/2010 [facility]OUT PHD, ANA A 307.81 HEADACHE, TENSION 10/09/2010 [facility] PHD, ANA A 346.90 MIGRAINE HEADACHE 10/09/2010 MADL UNIVERSITY ADMINISTRATIVE ASSISTANT, JENNY L 307.81 HEADACHE, TENSION 10/09/2010 MADL UNIVERSITY ADMINISTRATIVE ASSISTANT, JENNY L 346.90 MIGRAINE HEADACHE 10/09/2010 MADL UNIVERSITY ADMINISTRATIVE ASSISTANT, JENNY L 307.81 HEADACHE, TENSION 10/09/2010 MADL UNIVERSITY ADMINISTRATIVE ASSISTANT, JENNY L 346.90 MIGRAINE HEADACHE 10/09/2010 HELM [...] A 465.9 Upper Respiratory Infection 10/16/2010 MADL UNIVERSITY ADMINISTRATIVE ASSISTANT, JENNY L 465.9 Upper Respiratory Infection 10/16/2010 BOEOUT PHD, ANA A 465.9 Upper Respiratory Infection 10/16/2010 [facility] PHD, ANA A 465.9 Upper Respiratory Infection 10/16/2010 MADL UNIVERSITY ADMINISTRATIVE ASSISTANT, JENNY L 465.9 Upper Respiratory Infection 10/16/2010 JENSEN TREVINO, GWEN 465.9 Upper Respiratory Infection 10/16/2010 [facility] PHD, ANA A 465.9 Upper Respiratory Infection 10/16/2010 [facility] PHD, ANA A 465.9 Upper Respiratory Infection 10/16/2010 [facility] PHD, ANA A 465.9 Upper Respiratory Infection 10/16/2010 MADL UNIVERSITY ADMINISTRATIVE ASSISTANT, JENNY L 465.9 Upper Respiratory Infection 10/16/2010 [facility] PHD, ANA A 465.9 Upper Respiratory Infection 10/16/2010 [facility] PHD, ANA A 465.9 Upper Respiratory Infection 10/16/2010 [employer]ISTRAT[employer] ASSISTANT, JENNY L 465.9 Upper Respiratory Infection 10/16/2010 [facility] PHD, ANA A 465.9 Upper Respiratory Infection 10/16/2010 HELM DO, CHRIS K 465.9 Upper Respiratory Infection 10/16/2010 [employer] AD[employer]ISTRATIVE ASSISTANT, JENNY L 465.9 Upper Respiratory Infection 10/16/2010 [employer] ADMINISTRATIVE ASSISTANT, JENNY L 465.9 Upper Respiratory Infection 10/16/2010 [facility] PHD, ANA A 465.9 Upper Respiratory Infection 10/16/2010 [facility] PHD, ANA A 465.9 Upper Respiratory Infection 10/16/2010 [employer] ADMINISTRATIVE ASSISTANT, JENNY L 465.9 Upper Respiratory Infection 10/16/2010 [employer] ADMINISTRATIVE ASSISTANT, JENNY L 465.9 Upper Respiratory Infection 10/16/2010 [...] CHRIS K 466.0 Bronchitis, Acute 10/23/2010 [facility] [employer]IVE ASSISTANT, DOMENIC A 466.0 Bronchitis, Acute 10/23/2010 ZAIRE SWIFT, CAMMY Maldonado 466.0 Bronchitis, Acute 10/23/2010 HELM DO, CHRIS K 466.0 Bronchitis, Acute 10/23/2010 [facility] PHD, ANA A 466.0 Bronchitis, Acute 10/23/2010 [employer] [employer]ISTRATIVE ASSISTANT, DOMENIC A 466.0 Bronchitis, Acute 10/23/2010 [employer] AD[employer]ISTRATIVE ASSISTANT, JENNY L 466.0 Bronchitis, Acute 10/23/2010 [facility] PHD, ANA A 466.0 Bronchitis, Acute 10/23/2010 [facility] PHD, ANA A 466.0 Bronchitis, Acute 10/23/2010 [employer] ADMINISTRATIVE ASSISTANT, JENNY L 466.0 Bronchitis, Acute 10/23/2010 JENSEN TREVINO, GWEN 466.0 Bronchitis, Acute 10/23/2010 [facility] PHD, ANA A 466.0 Bronchitis, Acute 10/23/2010 [facility] PHD, ANA A 466.0 Bronchitis, Acute 10/23/2010 [facility] PHD, ANA A 466.0 Bronchitis, Acute 10/23/2010 [employer] ADMINISTRATIVE ASSISTANT, JENNY L 466.0 Bronchitis, Acute 10/23/2010 [facility] PHD, ANA A 466.0 Bronchitis, Acute 10/23/2010 [facility] PHD, ANA A 466.0 Bronchitis, Acute 10/23/2010 [employer] ADMINISTRATIVE ASSISTANT, JENNY L 466.0 Bronchitis, Acute 10/23/2010 [facility] PHD, ANA A 466.0 Bronchitis, Acute 10/23/2010 HELM DO, CHRIS K 466.0 Bronchitis, Acute 10/23/2010 [employer] ADMINISTRATIVE ASSISTANT, JENNY L 466.0 Bronchitis, Acute 10/23/2010 [employer] ADMINISTRATIVE ASSISTANT, JENNY L 466.0 Bronchitis, Acute 10/23/2010 [facility] PHD, ANA A 466.0 Bronchitis, Acute 10/23/2010 [facility] PHD, ANA A 466.0 Bronchitis, Acute 10/23/2010 [employer] ADMINISTRATIVE ASSISTANT, JENNY L 466.0 Bronchitis, Acute 10/23/2010 [employer] ADMINISTRATIVE ASSISTANT, JENNY L 466.0 Bronchitis, Acute 10/23/2010 MYNOR [...] K 728.71 Plantar Fascial Fibromatosis 04/17/2011 [employer] ADMINISTRATIVE ASSISTANT DOMENIC A 691.8 Dermatitis Atopic Eczema 04/17/2011 [employer] ADMINISTRATIVE ASSISTANT, DOMENIC A 728.71 Plantar Fascial Fibromatosis 04/17/2011 [employer]RE [employer] TECHNICIAN CAMMY B 691.8 Dermatitis Atopic Eczema 04/17/2011 [employer]AIRE [employer] P[employer] TECHNICIAN CAMMY B 728.71 Plantar Fascial Fibromatosis 04/17/2011 HELM DO, CHRIS K 691.8 Dermatitis Atopic Eczema 04/17/2011 HELM DO, CHRIS K 728.71 Plantar Fascial Fibromatosis 04/17/2011 [facility] PHD, ANA A 691.8 Dermatitis Atopic Eczema 04/17/2011 [facility] PHD, ANA Servin 728.71 Plantar Fascial Fibromatosis 04/17/2011 ALISA DIEHL DOMENIC A 691.8 Dermatitis Atopic Eczema 04/17/2011 SUSHIL CUELLAR APRNIDI A 728.71 Plantar Fascial Fibromatosis 04/17/2011 [employer] ADMINISTRATIVE ASSISTANT, JENNY L 691.8 Dermatitis Atopic Eczema 04/17/2011 [employer] ADMINISTRATIVE ASSISTANT, JENNY L 728.71 Plantar Fascial Fibromatosis 04/17/2011 [facility] SIFUENTES, ANA A 691.8 Dermatitis Atopic Eczema 04/17/2011 [facility] SIFUENTES, ANA A 728.71 Plantar Fascial Fibromatosis 04/17/2011 RAH SIFUENTES, ANA A 691.8 Dermatitis Atopic Eczema 04/17/2011 [facility]H SIFUENTES, ANA Servin 728.71 Plantar Fascial Fibromatosis 04/17/2011 [employer] ADMINISTRATIVE ASSISTANT, JENNY L 691.8 Dermatitis Atopic Eczema 04/17/2011 [employer] ADMINISTRATIVE ASSISTANT, JENNY L 728.71 Plantar Fascial Fibromatosis 04/17/2011 [...] Servin 728.71 Plantar Fascial Fibromatosis 04/17/2011 [employer] ADMINISTRATIVE ASSISTANT, JENNY L 691.8 Dermatitis Atopic Eczema 04/17/2011 [employer] ADMINISTRATIVE ASSISTANT, JENNY L 728.71 Plantar Fascial Fibromatosis 04/17/2011 [facility] SIFUENTES, ANA A 691.8 Dermatitis Atopic Eczema 04/17/2011 [facility] SIFUENTES, ANA Servin 728.71 Plantar Fascial Fibromatosis 04/17/2011 [facility] SIFUENTES, ANA A 691.8 Dermatitis Atopic Eczema 04/17/2011 [facility] SIFUENTES, ANA Servin 728.71 Plantar Fascial Fibromatosis 04/17/2011 [employer] ADMINISTRATIVE ASSISTANT, JENNY L 691.8 Dermatitis Atopic Eczema 04/17/2011 [employer] ADMINISTRATIVE ASSISTANT, JENNY L 728.71 Plantar Fascial Fibromatosis 04/17/2011 ANA MONREAL PHD A 691.8 Dermatitis Atopic Eczema 04/17/2011 ANA MONREAL PHD 728.71 Plantar Fascial Fibromatosis 04/17/2011 HELM DO, CHRIS K 691.8 Dermatitis Atopic Eczema 04/17/2011 HELM DO, CHRIS K 728.71 Plantar Fascial Fibromatosis 04/17/2011 MADL UNIVERSITY ADMINISTRATIVE ASSISTANT, JENNY L 691.8 Dermatitis Atopic Eczema 04/17/2011 MADL UNIVERSITY ADMINISTRATIVE ASSISTANT, JENNY L 728.71 Plantar Fascial Fibromatosis 04/17/2011 MADL UNIVERSITY ADMINISTRATIVE ASSISTANT, JENNY L 691.8 Dermatitis Atopic Eczema 04/17/2011 MADL UNIVERSITY ADMINISTRATIVE ASSISTANT, JENNY L 728.71 Plantar Fascial Fibromatosis 04/17/2011 RAH PHD, ANA A 691.8 Dermatitis Atopic Eczema 04/17/2011 RAH PHD, ANA A 728.71 Plantar Fascial Fibromatosis 04/17/2011 RAH PHD, ANA A 691.8 Dermatitis Atopic Eczema 04/17/2011 [facility] A 728.71 Plantar Fascial Fibromatosis 04/17/2011 MADL UNIVERSITY ADMINISTRATIVE ASSISTANT, JENNY L 691.8 Dermatitis Atopic Eczema 04/17/2011 MADL UNIVERSITY ADMINISTRATIVE ASSISTANT, JENNY L 728.71 Plantar Fascial Fibromatosis 04/17/2011 MADL UNIVERSITY ADMINISTRATIVE ASSISTANT, JENNY L 691.8 Dermatitis Atopic Eczema 04/17/2011 MADL UNIVERSITY ADMINISTRATIVE ASSISTANT, JENNY L 728.71 Plantar Fascial Fibromatosis 04/17/2011 [...] 216.9 Mole/nevus - Site Unspecified 07/24/2011 ALISA UNIVERSITY ADMINISTRATIVE ASSISTANT, DOMENIC A 216.9 Mole/nevus - Site Unspecified 07/24/2011 MADL UNIVERSITY ADMINISTRATIVE ASSISTANT, JENNY L 216.9 Mole/nevus - Site Unspecified 07/24/2011 BOEJOANN PHD, ANA A 216.9 Mole/nevus - Site Unspecified 07/24/2011 BOEJOANN PHD, ANA A 216.9 Mole/nevus - Site Unspecified 07/24/2011 MADL UNIVERSITY ADMINISTRATIVE ASSISTANT, JENNY L 216.9 Mole/nevus - Site Unspecified 07/24/2011 JENSEN TREVINO, GWEN 216.9 Mole/nevus - Site Unspecified 07/24/2011 BOEJOANN PHD, ANA A 216.9 Mole/nevus - Site Unspecified 07/24/2011 BOEJOANN PHD, ANA A 216.9 Mole/nevus - Site Unspecified 07/24/2011 BOEJOANN PHD, ANA A 216.9 Mole/nevus - Site Unspecified 07/24/2011 MADL UNIVERSITY ADMINISTRATIVE ASSISTANT, JENNY L 216.9 Mole/nevus - Site Unspecified 07/24/2011 BOEJOANN PHD, ANA A 216.9 Mole/nevus - Site Unspecified 07/24/2011 BOEJOANN PHD, ANA A 216.9 Mole/nevus - Site Unspecified 07/24/2011 MADL UNIVERSITY ADMINISTRATIVE ASSISTANT, JENNY L 216.9 Mole/nevus - Site Unspecified 07/24/2011 BOEJOANN PHD, ANA A 216.9 Mole/nevus - Site Unspecified 07/24/2011 HELM DO, CHRIS K 216.9 Mole/nevus - Site Unspecified 07/24/2011 MADL UNIVERSITY ADMINISTRATIVE ASSISTANT, JENNY L 216.9 Mole/nevus - Site Unspecified 07/24/2011 MADL UNIVERSITY ADMINISTRATIVE ASSISTANT, JENNY L 216.9 Mole/nevus - Site Unspecified 07/24/2011 BOEJOANN PHD, ANA A 216.9 Mole/nevus - Site Unspecified 07/24/2011 RAH PHD, ANA A 216.9 Mole/nevus - Site Unspecified 07/24/2011 MADL UNIVERSITY ADMINISTRATIVE ASSISTANT, JENNY L 216.9 Mole/nevus - Site Unspecified 07/24/2011 MADL UNIVERSITY ADMINISTRATIVE ASSISTANT, JENNY L 216.9 Mole/nevus - Site Unspecified [...] ANA A V58.32 Suture Removal 08/17/2011 ALISA UNIVERSITY ADMINISTRATIVE ASSISTANT, DOMENIC A V58.32 Suture Removal 08/17/2011 LUCIANO UNIVERSITY ADMINISTRATIVE ASSISTANT, JENNY L V58.32 Suture Removal 08/17/2011 RAH SIFUENTES, ANA Servin V58.32 Suture Removal 08/17/2011 RAH SIFUENTES, ANA A V58.32 Suture Removal 08/17/2011 LUCIANO UNIVERSITY ADMINISTRATIVE ASSISTANT, JENNY L V58.32 Suture Removal 08/17/2011 GWEN STYLES MD V58.32 Suture Removal 08/17/2011 RAH SIFUENTES, ANA A V58.32 Suture Removal 08/17/2011 RAH PHD, ANA A V58.32 Suture Removal 08/17/2011 BOEJOANN PHD, ANA A V58.32 Suture Removal 08/17/2011 MADL UNIVERSITY ADMINISTRATIVE ASSISTANT, JENNY L V58.32 Suture Removal 08/17/2011 BOEJOANN PHD, ANA A V58.32 Suture Removal 08/17/2011 BOEJOANN PHD, ANA A V58.32 Suture Removal 08/17/2011 MADL UNIVERSITY ADMINISTRATIVE ASSISTANT, JENNY L V58.32 Suture Removal 08/17/2011 RAH PHD, ANA A V58.32 Suture Removal 08/17/2011 HELM DOCHRIS K V58.32 Suture Removal 08/17/2011 MADL UNIVERSITY ADMINISTRATIVE ASSISTANT, JENNY L V58.32 Suture Removal 08/17/2011 MADL UNIVERSITY ADMINISTRATIVE ASSISTANT, JENNY L V58.32 Suture Removal 08/17/2011 RAH PHD, ANA A V58.32 Suture Removal 08/17/2011 RAH PHD, ANA A V58.32 Suture Removal 08/17/2011 MADL UNIVERSITY ADMINISTRATIVE ASSISTANT, JENNY L V58.32 Suture Removal 08/17/2011 MADL UNIVERSITY ADMINISTRATIVE ASSISTANT, JENNY L V58.32 Suture Removal 08/17/2011 CHRIS HELM DO V58.32 Suture Removal 10/20/2011 Ot 473.9 CHRONIC SINUSITIS NOS 10/20/2011 Ot 784.0 HEADACHE 10/26/2011 388.70 Otalgia 10/26/2011 473.9 Sinusitis ( chronic) 10/26/2011 CHRIS HELM DO 388.70 Otalgia 10/26/2011 CHRIS HEML DO 473.9 Sinusitis (chronic) 10/26/2011 388.70 Otalgia [...] ANA A 473.9 Sinusitis (chronic) 10/26/2011 MADL UNIVERSITY ADMINISTRATIVE ASSISTANT, JENNY L 388.70 Otalgia 10/26/2011 MADL UNIVERSITY ADMINISTRATIVE ASSISTANT, JENNY L 473.9 Sinusitis (chronic) 10/26/2011 JENSEN [...] ANA A 473.9 Sinusitis (chronic) 10/26/2011 MADL UNIVERSITY ADMINISTRATIVE ASSISTANT, JENNY L 388.70 Otalgia 10/26/2011 MADL UNIVERSITY ADMINISTRATIVE ASSISTANT, JENNY L 473.9 Sinusitis (chronic) 10/26/2011 RAH PHD, ANA A 388.70 Otalgia 10/26/2011 RAH PHD, ANA A 473.9 Sinusitis (chronic) 10/26/2011 RAH PHD, ANA A 388.70 Otalgia 10/26/2011 RAH PHD, ANA A 473.9 Sinusitis (chronic) 10/26/2011 MADL UNIVERSITY ADMINISTRATIVE ASSISTANT, JENNY L 388.70 Otalgia 10/26/2011 MADL UNIVERSITY ADMINISTRATIVE ASSISTANT, JENNY L 473.9 Sinusitis (chronic) 10/26/2011 RAH PHD, ANA A 388.70 Otalgia 10/26/2011 RAH PHD, ANA A 473.9 Sinusitis (chronic) 10/26/2011 HELM DO CHRIS K 388.70 Otalgia 10/26/2011 HELM DO CHRIS K 473.9 Sinusitis (chronic) 10/26/2011 MADL UNIVERSITY ADMINISTRATIVE ASSISTANT, JENNY L 388.70 Otalgia 10/26/2011 MADL UNIVERSITY ADMINISTRATIVE ASSISTANT, JENNY L 473.9 Sinusitis (chronic) 10/26/2011 MADL UNIVERSITY ADMINISTRATIVE ASSISTANT, JENNY L 388.70 Otalgia 10/26/2011 MADL UNIVERSITY ADMINISTRATIVE ASSISTANT, JENNY L 473.9 Sinusitis (chronic) 10/26/2011 RAH PHD, ANA A 388.70 Otalgia 10/26/2011 RAH PHD, ANA A 473.9 Sinusitis (chronic) 10/26/2011 RAH PHD, ANA A 388.70 Otalgia 10/26/2011 RAH PHD, ANA A 473.9 Sinusitis (chronic) 10/26/2011 MADL UNIVERSITY ADMINISTRATIVE ASSISTANT, JENNY L 388.70 Otalgia 10/26/2011 MADL UNIVERSITY ADMINISTRATIVE ASSISTANT, JENNY L 473.9 Sinusitis (chronic) 10/26/2011 MADL UNIVERSITY ADMINISTRATIVE ASSISTANT, JENNY L 388.70 Otalgia 10/26/2011 MADL UNIVERSITY ADMINISTRATIVE ASSISTANT, JENNY L 473.9 Sinusitis (chronic) 10/26/2011 CHRIS [...] TAI LCPC 381.81 Eustachian Tube Dysfunction 02/06/2012 CMAMY TAI LCPC 487.1 Influenza 02/06/2012 CAMMY TAI [...] APRN A V25.9 Contraception Management 02/06/2012 MADL UNIVERSITY ADMINISTRATIVE ASSISTANT, JENNY L 381.81 Eustachian Tube Dysfunction 02/06/2012 MADL UNIVERSITY ADMINISTRATIVE ASSISTANT, JENNY L 487.1 Influenza 02/06/2012 MADL UNIVERSITY ADMINISTRATIVE ASSISTANT, JENNY L V25.9 Contraception Management 02/06/2012 ANA MONREAL PHD 381.81 Eustachian Tube Dysfunction 02/06/2012 ANA MONREAL PHD 487.1 Influenza 02/06/2012 ANA MONREAL PHD V25.9 Contraception Management 02/06/2012 ANA MONREAL PHD 381.81 Eustachian Tube Dysfunction 02/06/2012 ANA MONREAL PHD 487.1 Influenza 02/06/2012 ANA MONREAL PHD V25.9 Contraception Management 02/06/2012 MADL UNIVERSITY ADMINISTRATIVE ASSISTANT, JENNY L 381.81 Eustachian Tube Dysfunction 02/06/2012 MADL UNIVERSITY ADMINISTRATIVE ASSISTANT, JENNY L 487.1 Influenza 02/06/2012 MADL UNIVERSITY ADMINISTRATIVE ASSISTANT, JENNY L V25.9 Contraception Management 02/06/2012 GWEN [...] MONREAL PHD V25.9 Contraception Management 02/06/2012 MADL UNIVERSITY ADMINISTRATIVE ASSISTANT, JENNY L 381.81 Eustachian Tube Dysfunction 02/06/2012 MADL UNIVERSITY ADMINISTRATIVE ASSISTANT, JENNY L 487.1 Influenza 02/06/2012 MADL UNIVERSITY ADMINISTRATIVE ASSISTANT, JENNY L V25.9 Contraception Management 02/06/2012 ANA MONREAL PHD 381.81 Eustachian Tube Dysfunction 02/06/2012 ANA MONREAL PHD 487.1 Influenza 02/06/2012 ANA MONREAL PHD V25.9 Contraception Management 02/06/2012 ANA MONREAL PHD 381.81 Eustachian Tube Dysfunction 02/06/2012 ANA MONREAL PHD 487.1 Influenza 02/06/2012 ANA MONREAL PHD V25.9 Contraception Management 02/06/2012 MADL UNIVERSITY ADMINISTRATIVE ASSISTANT, JENNY L 381.81 Eustachian Tube Dysfunction 02/06/2012 MADL UNIVERSITY ADMINISTRATIVE ASSISTANT, JENNY L 487.1 Influenza 02/06/2012 MADL UNIVERSITY ADMINISTRATIVE ASSISTANT, JENNY L V25.9 Contraception Management 02/06/2012 ANA MONREAL PHD 381.81 Eustachian Tube Dysfunction 02/06/2012 ANA MONREAL PHD 487.1 Influenza 02/06/2012 ANA MONREAL PHD V25.9 Contraception Management 02/06/2012 CHRIS HELM DO 381.81 Eustachian Tube Dysfunction 02/06/2012 CHRIS HELM DO 487.1 Influenza 02/06/2012 CHRIS HELM DO V25.9 Contraception Management 02/06/2012 MADL UNIVERSITY ADMINISTRATIVE ASSISTANT, JENNY L 381.81 Eustachian Tube Dysfunction 02/06/2012 MADL UNIVERSITY ADMINISTRATIVE ASSISTANT, JENNY L 487.1 Influenza 02/06/2012 MADL UNIVERSITY ADMINISTRATIVE ASSISTANT, JENNY L V25.9 Contraception Management 02/06/2012 MADL UNIVERSITY ADMINISTRATIVE ASSISTANT, JENNY L 381.81 Eustachian Tube Dysfunction 02/06/2012 MADL UNIVERSITY ADMINISTRATIVE ASSISTANT, JENNY L 487.1 Influenza 02/06/2012 MADL UNIVERSITY ADMINISTRATIVE ASSISTANT, JENNY L V25.9 Contraception Management 02/06/2012 RAH PHD, ANA Servin 381.81 Eustachian Tube Dysfunction 02/06/2012 RAH PHD, ANA Servin 487.1 Influenza 02/06/2012 RAH PHD, ANA Servin V25.9 Contraception Management 02/06/2012 RAH PHD, ANA Servin 381.81 Eustachian Tube Dysfunction 02/06/2012 RAH PHD, ANA Servin 487.1 Influenza 02/06/2012 RAH PHD, ANA Servin V25.9 Contraception Management 02/06/2012 MADL UNIVERSITY ADMINISTRATIVE ASSISTANT, JENNY L 381.81 Eustachian Tube Dysfunction 02/06/2012 MADL UNIVERSITY ADMINISTRATIVE ASSISTANT, JENNY L 487.1 Influenza 02/06/2012 MADL UNIVERSITY ADMINISTRATIVE ASSISTANT, JENNY L V25.9 Contraception Management 02/06/2012 MADL UNIVERSITY ADMINISTRATIVE ASSISTANT, JENNY L 381.81 Eustachian Tube Dysfunction 02/06/2012 MADL UNIVERSITY ADMINISTRATIVE ASSISTANT, JENNY L 487.1 Influenza 02/06/2012 MADL UNIVERSITY ADMINISTRATIVE ASSISTANT, JENNY L V25.9 Contraception Management 02/06/2012 CHRIS [...] V25.49 Contraception Surveillance (repeat Rx) 05/19/2012 MADL UNIVERSITY ADMINISTRATIVE ASSISTANT, JENNY L V25.49 Contraception Surveillance (repeat Rx) 05/19/2012 ANA MONREAL PHD V25.49 Contraception Surveillance (repeat Rx) 05/19/2012 ANA MONREAL PHD V25.49 Contraception Surveillance (repeat Rx) 05/19/2012 CHACORTAL UNIVERSITY ADMINISTRATIVE ASSISTANT, JENNY Brown V25.49 Contraception Surveillance (repeat Rx) 05/19/2012 ANA MONREAL PHD V25.49 Contraception Surveillance (repeat Rx) 05/19/2012 CHRIS HELM DO V25.49 Contraception Surveillance (repeat Rx) 05/19/2012 MADL UNIVERSITY ADMINISTRATIVE ASSISTANT, JENNY Dasilva V25.49 Contraception Surveillance (repeat Rx) 05/19/2012 CHACORTAL UNIVERSITY ADMINISTRATIVE ASSISTANT, JENNY Dasilva V25.49 Contraception Surveillance (repeat Rx) 05/19/2012 ANA MONREAL PHD V25.49 Contraception Surveillance (repeat Rx) 05/19/2012 ANA MONREAL PHD V25.49 Contraception Surveillance (repeat Rx) 05/19/2012 MADL UNIVERSITY ADMINISTRATIVE ASSISTANT, JENNY Brown V25.49 Contraception Surveillance (repeat Rx) 05/19/2012 MADL UNIVERSITY ADMINISTRATIVE ASSISTANT, JENNY Brown V25.49 Contraception Surveillance (repeat Rx) 05/19/2012 CHRIS HELM DO V25.49 Contraception Surveillance (repeat Rx) 07/14/2012 278.00 OBESITY 07/14/2012 462 ACUTE PHARYNGITIS 07/14/2012 V72.31 LIBRARY SPECIALIST EXAM, ROUTINE 07/14/2012 V76.10 BREAST CANCER SCREENING 07/14/2012 CHRIS HELM DO 278.00 OBESITY 07/14/2012 CHRIS HELM DO 462 Acute Pharyngitis 07/14/2012 CHRIS HELM DO V72.31 Machine Burrer Exam, Routine 07/14/2012 CHRIS HELM DO V76.10 Breast Cancer Screening 07/14/2012 278.00 OBESITY 07/14/2012 462 Acute Pharyngitis 07/14/2012 V72.31 Machine Burrer Exam, Routine 07/14/2012 V76.10 Breast Cancer Screening 07/14/2012 CHRIS HELM DO 278.00 OBESITY 07/14/2012 CHRIS HELM DO 462 Acute Pharyngitis 07/14/2012 HELM CHRIS CHENG V72.31 Machine Burrer Exam, Routine 07/14/2012 HELM DO CHRIS K V76.10 Breast Cancer Screening 07/14/2012 TOM TREVINO, TIMI 278.00 OBESITY 07/14/2012 TOM TREVINO, TIMI 46Cynthia Acute Pharyngitis 07/14/2012 TOM TREVINO, TIMI V72.31 Machine Burrer Exam, Routine 07/14/2012 TOM TREVINO, TIMI V76.10 Breast Cancer Screening 07/14/2012 ZAIRE CRITICAL POWER TECHNICIAN, CAMMY B 278.00 OBESITY 07/14/2012 ZAIRE CRITICAL POWER TECHNICIAN, CAMMY B 462 Acute Pharyngitis 07/14/2012 ZAIRE CRITICAL POWER TECHNICIAN, CAMMY B V72.31 Machine Burrer Exam, Routine 07/14/2012 ZAIRE CRITICAL POWER TECHNICIAN, CAMMY B V76.10 Breast Cancer Screening 07/14/2012 TOM TREVINO, TIMI 278.00 OBESITY 07/14/2012 TIMI SANTOS MD Acute Pharyngitis 07/14/2012 TIMI SANTOS MD V72.31 Machine Burrer Exam, Routine 07/14/2012 TIMI SANTOS MD V76.10 Breast Cancer Screening 07/14/2012 TOM TREVINO, TIMI 278.00 OBESITY 07/14/2012 TOM TREVINO, TIMI 46Cynthia Acute Pharyngitis 07/14/2012 TOM TREVINO, TIMI V72.31 Machine Burrer Exam, Routine 07/14/2012 TOM TREVINO, TIMI V76.10 Breast Cancer Screening 07/14/2012 TOM TREVINO, TIMI 278.00 OBESITY 07/14/2012 TIMI SANTOS MD 46Cynthia Acute Pharyngitis 07/14/2012 TOM TREVINO, TIMI V72.31 Machine Burrer Exam, Routine 07/14/2012 TOM TREVINO, TIMI V76.10 Breast Cancer Screening 07/14/2012 TOM TREVINO, TIMI 278.00 OBESITY 07/14/2012 TIMI SANTOS MD 46Cynthia Acute Pharyngitis 07/14/2012 TOM TREVINO, TIMI V72.31 Machine Burrer Exam, Routine 07/14/2012 TIMI SANTOS MD V76.10 Breast Cancer Screening 07/14/2012 TOM TREVINO, TIMI 278.00 OBESITY 07/14/2012 HUERTER MD, TIMI 462 Acute Pharyngitis 07/14/2012 TOM TREVINO, TIMI V72.31 Machine Burrer Exam, Routine 07/14/2012 TOM TREVINO, TIMI V76.10 Breast Cancer Screening 07/14/2012 CHRIS HELM DO 278.00 OBESITY 07/14/2012 HELM DO CHRIS K 462 Acute Pharyngitis 07/14/2012 HELM CHRIS CHENG K V72.31 Machine Burrer Exam, Routine 07/14/2012 CHRIS HELM DO V76.10 Breast Cancer Screening 07/14/2012 DOMENIC CUELLAR APRN A 278.00 OBESITY 07/14/2012 DOMENIC CUELLAR APRN 462 Acute Pharyngitis 07/14/2012 DOMENIC CUELLAR APRN V72.31 Machine Burrer Exam, Routine 07/14/2012 DOMENIC CUELLAR APRN V76.10 Breast Cancer Screening 07/14/2012 CAMMY TAI LCPC 278.00 OBESITY 07/14/2012 CAMMY TAI LCPC 462 Acute Pharyngitis 07/14/2012 CAMMY TAI LCPC V72.31 Machine Burrer Exam, Routine 07/14/2012 CAMMY TAI LCPC V76.10 Breast Cancer Screening 07/14/2012 CHRIS HELM DO 278.00 OBESITY 07/14/2012 CHRIS HELM DO 462 Acute Pharyngitis 07/14/2012 CHRIS HELM DO V72.31 Machine Burrer Exam, Routine 07/14/2012 CHRIS HELM DO V76.10 Breast Cancer Screening 07/14/2012 RAH PHD, ANA Servin 278.00 OBESITY 07/14/2012 RAH SIFUENTES, ANA Servin 462 Acute Pharyngitis 07/14/2012 RAH SIFUENTES, ANA Servin V72.31 Machine Burrer Exam, Routine 07/14/2012 RAH SIFUENTES, ANA Servin V76.10 Breast Cancer Screening 07/14/2012 DOMENIC CUELLAR APRN 278.00 OBESITY 07/14/2012 DOMENIC CUELLAR APRN A 462 Acute Pharyngitis 07/14/2012 DOMENIC CUELLAR APRN V72.31 Machine Burrer Exam, Routine 07/14/2012 ALISA UNIVERSITY ADMINISTRATIVE ASSISTANT, DOMENIC A V76.10 Breast Cancer Screening 07/14/2012 MADL UNIVERSITY ADMINISTRATIVE ASSISTANT, JENNY L 278.00 OBESITY 07/14/2012 MADL UNIVERSITY ADMINISTRATIVE ASSISTANT, JENNY L 462 Acute Pharyngitis 07/14/2012 MADL UNIVERSITY ADMINISTRATIVE ASSISTANT, JENNY L V72.31 Machine Burrer Exam, Routine 07/14/2012 MADL UNIVERSITY ADMINISTRATIVE ASSISTANT, JENNY L V76.10 Breast Cancer Screening 07/14/2012 RAH PHD, ANA Servin 278.00 OBESITY 07/14/2012 RAH PHD, ANA A 462 Acute Pharyngitis 07/14/2012 RAH PHD, ANA Servin V72.31 Machine Burrer Exam, Routine 07/14/2012 RAH PHD, ANA Servin V76.10 Breast Cancer Screening 07/14/2012 RAH PHD, ANA Servin 278.00 OBESITY 07/14/2012 RAH PHD, ANA Servin 462 Acute Pharyngitis 07/14/2012 RAH PHD, ANA Servin V72.31 Machine Burrer Exam, Routine 07/14/2012 ANA MONREAL PHD V76.10 Breast Cancer Screening 07/14/2012 MADL UNIVERSITY ADMINISTRATIVE ASSISTANT, JENNY L 278.00 OBESITY 07/14/2012 MADL UNIVERSITY ADMINISTRATIVE ASSISTANT, JENNY L 462 Acute Pharyngitis 07/14/2012 MADL UNIVERSITY ADMINISTRATIVE ASSISTANT, JENNY L V72.31 Machine Burrer Exam, Routine 07/14/2012 MADL UNIVERSITY ADMINISTRATIVE ASSISTANT, JENNY L V76.10 Breast Cancer Screening 07/14/2012 JENSEN TREVINO, GWEN 278.00 OBESITY 07/14/2012 JENSEN TREVINO, GWEN 462 Acute Pharyngitis 07/14/2012 JENSEN TREVINO, GWEN V72.31 Machine Burrer Exam, Routine 07/14/2012 JENSEN TREVINO, GWEN V76.10 Breast Cancer Screening 07/14/2012 RAH SIFUENTES, ANA Servin 278.00 OBESITY 07/14/2012 ANA MONREAL PHD 462 Acute Pharyngitis 07/14/2012 ANA MONREAL PHD V72.31 Machine Burrer Exam, Routine 07/14/2012 ANA MONREAL PHD V76.10 Breast Cancer Screening 07/14/2012 RAH SIFUENTES, ANA Servin 278.00 OBESITY 07/14/2012 RAH SIFUENTES, ANA Servin 462 Acute Pharyngitis 07/14/2012 RAH PHD, ANA A V72.31 Machine Burrer Exam, Routine 07/14/2012 ANA MONREAL PHD V76.10 Breast Cancer Screening 07/14/2012 RAH PHD, ANA A 278.00 OBESITY 07/14/2012 RAH PHD, ANA A 462 Acute Pharyngitis 07/14/2012 RAH PHD, ANA A V72.31 Machine Burrer Exam, Routine 07/14/2012 RAH PHD, ANA Servin V76.10 Breast Cancer Screening 07/14/2012 MADL UNIVERSITY ADMINISTRATIVE ASSISTANT, JENNY L 278.00 OBESITY 07/14/2012 MADL UNIVERSITY ADMINISTRATIVE ASSISTANT, JENNY L 462 Acute Pharyngitis 07/14/2012 MADL UNIVERSITY ADMINISTRATIVE ASSISTANT, JENNY L V72.31 Machine Burrer Exam, Routine 07/14/2012 MADL UNIVERSITY ADMINISTRATIVE ASSISTANT, JENNY L V76.10 Breast Cancer Screening 07/14/2012 RAH SIFUENTES, ANA A 278.00 OBESITY 07/14/2012 RAH PHD, ANA Servin 462 Acute Pharyngitis 07/14/2012 RAH SIFUENTES, ANA A V72.31 Machine Burrer Exam, Routine 07/14/2012 ANA MONREAL PHD V76.10 Breast Cancer Screening 07/14/2012 RAH SIFUENTES, ANA A 278.00 OBESITY 07/14/2012 RAH PHD, ANA Servin 462 Acute Pharyngitis 07/14/2012 RAH SIFUENTES, ANA A V72.31 Machine Burrer Exam, Routine 07/14/2012 RAH SIFUENTES, ANA Servin V76.10 Breast Cancer Screening 07/14/2012 MADL UNIVERSITY ADMINISTRATIVE ASSISTANT, JENNY L 278.00 OBESITY 07/14/2012 MADL UNIVERSITY ADMINISTRATIVE ASSISTANT, JENNY L 462 Acute Pharyngitis 07/14/2012 MADL UNIVERSITY ADMINISTRATIVE ASSISTANT, JENNY L V72.31 Machine Burrer Exam, Routine 07/14/2012 MADL UNIVERSITY ADMINISTRATIVE ASSISTANT, JENNY L V76.10 Breast Cancer Screening 07/14/2012 RAH SIFUENTES, ANA A 278.00 OBESITY 07/14/2012 RAH SIFUENTES, ANA A 462 Acute Pharyngitis 07/14/2012 RAH PHD, ANA Servin V72.31 Machine Burrer Exam, Routine 07/14/2012 RAH PHD, ANA Servin V76.10 Breast Cancer Screening 07/14/2012 HELM DO, CHRIS K 278.00 OBESITY 07/14/2012 HELM DO, CHRIS K 462 Acute Pharyngitis 07/14/2012 HELM DO, CHRIS K V72.31 Machine Burrer Exam, Routine 07/14/2012 HELM DO, CHRIS K V76.10 Breast Cancer Screening 07/14/2012 MADL UNIVERSITY ADMINISTRATIVE ASSISTANT, JENYN L 278.00 OBESITY 07/14/2012 MADL UNIVERSITY ADMINISTRATIVE ASSISTANT, JENNY L 462 Acute Pharyngitis 07/14/2012 MADL UNIVERSITY ADMINISTRATIVE ASSISTANT, JENNY L V72.31 Machine Burrer Exam, Routine 07/14/2012 MADL UNIVERSITY ADMINISTRATIVE ASSISTANT, JENNY L V76.10 Breast Cancer Screening 07/14/2012 MADL UNIVERSITY ADMINISTRATIVE ASSISTANT, JENNY L 278.00 OBESITY 07/14/2012 MADL UNIVERSITY ADMINISTRATIVE ASSISTANT, JENNY L 462 Acute Pharyngitis 07/14/2012 MADL UNIVERSITY ADMINISTRATIVE ASSISTANT, JENNY L V72.31 Machine Burrer Exam, Routine 07/14/2012 MADL UNIVERSITY ADMINISTRATIVE ASSISTANT, JENNY L V76.10 Breast Cancer Screening 07/14/2012 RAH PHD, ANA Servin 278.00 OBESITY 07/14/2012 RAH PHD, ANA Servin 462 Acute Pharyngitis 07/14/2012 RAH SIFUENTES, ANA Servin V72.31 Machine Burrer Exam, Routine 07/14/2012 RAH SIFUENTES, ANA Servin V76.10 Breast Cancer Screening 07/14/2012 RAH PHD, ANA A 278.00 OBESITY 07/14/2012 RAH SIFUENTES, ANA Servin 462 Acute Pharyngitis 07/14/2012 RAH SIFUENTES, ANA Servin V72.31 Machine Burrer Exam, Routine 07/14/2012 RAH SIFUENTES, ANA Servin V76.10 Breast Cancer Screening 07/14/2012 MADL UNIVERSITY ADMINISTRATIVE ASSISTANT, JENNY L 278.00 OBESITY 07/14/2012 MADL UNIVERSITY ADMINISTRATIVE ASSISTANT, JENNY L 462 Acute Pharyngitis 07/14/2012 MADL UNIVERSITY ADMINISTRATIVE ASSISTANT, JENNY L V72.31 Machine Burrer Exam, Routine 07/14/2012 CHACORTAL UNIVERSITY ADMINISTRATIVE ASSISTANT, JENNY L V76.10 Breast Cancer Screening 07/14/2012 MADL UNIVERSITY ADMINISTRATIVE ASSISTANT, JENNY L 278.00 OBESITY 07/14/2012 MADL UNIVERSITY ADMINISTRATIVE ASSISTANT, JENNY L 462 Acute Pharyngitis 07/14/2012 MADL UNIVERSITY ADMINISTRATIVE ASSISTANT, JENNY L V72.31 Machine Burrer Exam, Routine 07/14/2012 MADL UNIVERSITY ADMINISTRATIVE ASSISTANT, JENNY L V76.10 Breast Cancer Screening 07/14/2012 MYNOR HELM DOA K 278.00 OBESITY 07/14/2012 MYNOR HELM DOA K 462 Acute Pharyngitis 07/14/2012 MYNOR HELM DOA K V72.31 Machine Burrer Exam, Routine 07/14/2012 HELM MYNOR CHENGA K [...] ANA Servin 462 PHARYNGITIS ACUTE 11/05/2012 ALISA UNIVERSITY ADMINISTRATIVE ASSISTANT, DOMENIC A 462 PHARYNGITIS ACUTE 11/05/2012 MADL UNIVERSITY ADMINISTRATIVE ASSISTANT, JENNY L 462 PHARYNGITIS ACUTE 11/05/2012 RAH PHD, ANA A 462 PHARYNGITIS ACUTE 11/05/2012 RAH PHD, ANA A 462 PHARYNGITIS ACUTE 11/05/2012 MADL UNIVERSITY ADMINISTRATIVE ASSISTANT, JENNY L 462 PHARYNGITIS ACUTE 11/05/2012 JENSEN TREVINO, GWEN 462 PHARYNGITIS ACUTE 11/05/2012 RAH PHD, ANA A 462 PHARYNGITIS ACUTE 11/05/2012 RAH PHD, ANA A 462 PHARYNGITIS ACUTE 11/05/2012 RAH PHD, ANA A 462 PHARYNGITIS ACUTE 11/05/2012 MADL UNIVERSITY ADMINISTRATIVE ASSISTANT, JENNY L 462 PHARYNGITIS ACUTE 11/05/2012 RAH PHD, ANA A 462 PHARYNGITIS ACUTE 11/05/2012 RAH PHD, ANA A 462 PHARYNGITIS ACUTE 11/05/2012 MADL UNIVERSITY ADMINISTRATIVE ASSISTANT, JENNY L 462 PHARYNGITIS ACUTE 11/05/2012 RAH PHD, ANA A 462 PHARYNGITIS ACUTE 11/05/2012 HELM DO, CHRIS K 462 PHARYNGITIS ACUTE 11/05/2012 MADL UNIVERSITY ADMINISTRATIVE ASSISTANT, JENNY L 462 PHARYNGITIS ACUTE 11/05/2012 MADL UNIVERSITY ADMINISTRATIVE ASSISTANT, JENNY L 462 PHARYNGITIS ACUTE 11/05/2012 RAH PHD, ANA A 462 PHARYNGITIS ACUTE 11/05/2012 RAH PHD, ANA A 462 PHARYNGITIS ACUTE 11/05/2012 MADL UNIVERSITY ADMINISTRATIVE ASSISTANT, JENNY L 462 PHARYNGITIS ACUTE 11/05/2012 MADL UNIVERSITY ADMINISTRATIVE ASSISTANT, JENNY L 462 PHARYNGITIS ACUTE 11/05/2012 HELM DO, CHRIS K 462 PHARYNGITIS ACUTE 06/30/2013 AMOR BISHOP UNIVERSITY ADMINISTRATIVE ASSISTANT Ot 686.9 LOCAL SKIN INFECTION NOS 06/30/2013 AMOR BISHOP UNIVERSITY ADMINISTRATIVE ASSISTANT Ot 704.8 HAIR DISEASES NEC 06/30/2013 AMOR BISHOP UNIVERSITY ADMINISTRATIVE ASSISTANT Ot 782.1 NONSPECIF SKIN ERUPT NEC 07/19/2013 [...] UNSPECIFIED TYPE NOT STATED UNCONTROLLED 07/28/2013 ALISA UNIVERSITY ADMINISTRATIVE ASSISTANT, DOMENIC A 250.00 DIABETES MELLITUS WITHOUT MENTION [...] UNSPECIFIED TYPE NOT STATED UNCONTROLLED 07/28/2013 MADL UNIVERSITY ADMINISTRATIVE ASSISTANT, JENNY L 250.00 DIABETES MELLITUS WITHOUT MENTION [...] UNSPECIFIED TYPE NOT STATED UNCONTROLLED 07/28/2013 MADL UNIVERSITY ADMINISTRATIVE ASSISTANT, JENNY L 250.00 DIABETES MELLITUS WITHOUT MENTION OF COMPLICATION TYPE II OR UNSPECIFIED TYPE NOT STATED UNCONTROLLED 07/28/2013 RAH SIFUENTES, ANA A 250.00 DIABETES MELLITUS WITHOUT MENTION OF COMPLICATION TYPE II OR UNSPECIFIED TYPE NOT STATED UNCONTROLLED 07/28/2013 RAH SIFUENTES, ANA A 250.00 DIABETES MELLITUS WITHOUT MENTION OF COMPLICATION TYPE II OR UNSPECIFIED TYPE NOT STATED UNCONTROLLED 07/28/2013 MADL UNIVERSITY ADMINISTRATIVE ASSISTANT, JENNY L 250.00 DIABETES MELLITUS WITHOUT MENTION OF COMPLICATION TYPE II OR UNSPECIFIED TYPE NOT STATED UNCONTROLLED 07/28/2013 RAH SIFUENTES, ANA A 250.00 DIABETES MELLITUS WITHOUT MENTION OF COMPLICATION TYPE II OR UNSPECIFIED TYPE NOT STATED UNCONTROLLED 07/28/2013 CHRIS HELM DO 250.00 DIABETES MELLITUS WITHOUT MENTION OF COMPLICATION TYPE II OR UNSPECIFIED TYPE NOT STATED UNCONTROLLED 07/28/2013 MADL UNIVERSITY ADMINISTRATIVE ASSISTANT, JENNY L 250.00 DIABETES MELLITUS WITHOUT MENTION OF COMPLICATION TYPE II OR UNSPECIFIED TYPE NOT STATED UNCONTROLLED 07/28/2013 MADL UNIVERSITY ADMINISTRATIVE ASSISTANT, JENNY L 250.00 DIABETES MELLITUS WITHOUT MENTION OF COMPLICATION TYPE II OR UNSPECIFIED TYPE NOT STATED UNCONTROLLED 07/28/2013 RAH SIFUENTES, ANA A 250.00 DIABETES MELLITUS WITHOUT MENTION OF COMPLICATION TYPE II OR UNSPECIFIED TYPE NOT STATED UNCONTROLLED 07/28/2013 RAH SIFUENTES, ANA A 250.00 DIABETES MELLITUS WITHOUT MENTION OF COMPLICATION TYPE II OR UNSPECIFIED TYPE NOT STATED UNCONTROLLED 07/28/2013 [employer] ADMINISTRATIVE ASSISTANT, JENNY L 250.00 DIABETES MELLITUS WITHOUT MENTION OF COMPLICATION TYPE II OR UNSPECIFIED TYPE NOT STATED UNCONTROLLED 07/28/2013 MADL UNIVERSITY ADMINISTRATIVE ASSISTANT, JENNY L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 UNIVERSITY ADMINISTRATIVE ASSISTANT Ot R51 HEADACHE 05/14/2016 JENNY WOLF CURING OVEN ATTENDANT Ot R00.2 PALPITATIONS 07/20/2016 Ot 719.46 JOINT PAIN-L /LEG 07/20/2016 Ot 346.90 MIGRAINE UNSPECIFIED W/O INTRACT MGRN W/ 07/20/2016 JENNY WOLF L CURING OVEN ATTENDANT Ot 397.0 TRICUSPID VALVE DISEASE 07/20/2016 MADMARICRUZ DasilvaA L CURING OVEN ATTENDANT Ot 424.0 MITRAL VALVE DISORDER 07/20/2016 CHACORTABrownJENNY L CURING OVEN ATTENDANT Ot 785.1 PALPITATIONS 07/20/2016 EDWIN THOMPSON Ot 785.1 PALPITATIONS 07/20/2016 EDWIN THOMPSON Ot 786.09 RESPIRATORY ABNORM NEC 07/20/2016 EDWIN THOMPSON Ot 786.50 CHEST PAIN NOS 07/20/2016 EDWIN THOMPSON Ot V64.2 NO PROC/PATIENT DECISION 07/20/2016 EDWIN THOMPSON Ot 785.1 PALPITATIONS 07/20/2016 EDWIN THOMPSON Ot 786.09 RESPIRATORY ABNORM NEC 07/20/2016 EDWNI THOMPSON Ot 786.50 CHEST PAIN NOS 07/20/2016 JUSTIN KING MD Ot 722.52 LUMB/LUMBOSAC DISC DEGEN 07/20/2016 KHURRAM DELGADO DO Ot K21.9 GASTRO-ESOPHAGEAL REFLUX DISEASE WITHOUT 07/20/2016 KHURRAM DELGADO DO Ot Z01.818 ENCOUNTER FOR OTHER PREPROCEDURAL EXAMIN 07/20/2016 LUCIANOJENNY L CURING OVEN ATTENDANT Ot R00.2 PALPITATIONS 07/23/2016 GWEN STYLES MD [...] INTRACT MGRN W/ 11/12/2016 MADL, JENNY L CURING OVEN ATTENDANT Ot 397.0 TRICUSPID VALVE DISEASE 11/12/2016 MADL, JENNY L CURING OVEN ATTENDANT Ot 424.0 MITRAL VALVE DISORDER 11/12/2016 MADL, JENNY L CURING OVEN ATTENDANT Ot 785.1 PALPITATIONS 11/12/2016 EDWIN THOMPSON Ot [...] FOR OTHER PREPROCEDURAL EXAMIN 11/12/2016 LUCIANOJENNY Brown CURING OVEN ATTENDANT Ot R00.2 PALPITATIONS 11/12/2016 GWEN STYLES MD Ot E11.9 TYPE 2 DIABETES MELLITUS WITHOUT COMPLIC 11/12/2016 GWEN STYLES MD Ot I10 ESSENTIAL (PRIMARY) HYPERTENSION 11/12/2016 GWEN STYLES MD Ot R00.2 PALPITATIONS 11/12/2016 GWEN STYLES MD Ot R06.02 SHORTNESS OF BREATH 11/12/2016 GWEN STYLES MD Ot Z72.0 TOBACCO USE 11/13/2016 LUCIANO JENNY Dasilva CURING OVEN ATTENDANT Ot M79.671 PAIN IN RIGHT FOOT 11/13/2016 JENNY WOLF CURING OVEN ATTENDANT Ot M79.672 PAIN IN LEFT FOOT 11/13/2016 JENNY WOLF L CURING OVEN ATTENDANT Ot R20.9 UNSPECIFIED DISTURBANCES OF SKIN SENSATI 11/23/2016 JUSTIN KING MD Ot G89.4 CHRONIC PAIN SYNDROME 11/23/2016 JUSTIN KING MD Ot M51.16 INTERVERTEBRAL DISC DISORDERS W RADICULO 11/23/2016 JUSTIN KING MD Ot Z79.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 11/26/2016 LUCIANO JENNY L CURING OVEN ATTENDANT Ot M79.671 PAIN IN RIGHT FOOT 11/26/2016 MARICRUZ WOLFA L CURING OVEN ATTENDANT Ot M79.672 PAIN IN LEFT FOOT 11/26/2016 MADBrownNIRAJJENNY L CURING OVEN ATTENDANT Ot R20.9 UNSPECIFIED DISTURBANCES OF SKIN SENSATI 02/22/2017 JENNY WOLF CURING OVEN ATTENDANT Ot R09.89 OTH SYMPTOMS AND SIGNS INVOLVING THE CIR 05/27/2017 Ot 346.90 MIGRAINE UNSPECIFIED W/O INTRACT MGRN W/ 05/27/2017 JENNY WOLF L CURING OVEN ATTENDANT Ot 397.0 TRICUSPID VALVE DISEASE 05/27/2017 MARICRUZ WOLFA L CURING OVEN ATTENDANT Ot 424.0 MITRAL VALVE DISORDER 05/27/2017 JENNY WOLF CURING OVEN ATTENDANT Ot 785.1 PALPITATIONS 05/27/2017 EDWIN THOMPSON Ot [...] FOR OTHER PREPROCEDURAL EXAMIN 05/27/2017 JENNY WOLF CURING OVEN ATTENDANT Ot R00.2 PALPITATIONS 05/27/2017 GWEN STYLES MD Ot E11.9 TYPE 2 DIABETES MELLITUS WITHOUT COMPLIC 05/27/2017 GWEN STYLES MD Ot I10 ESSENTIAL (PRIMARY) HYPERTENSION 05/27/2017 GWEN STYLES MD Ot R00.2 PALPITATIONS 05/27/2017 GWEN STYLES MD Ot R06.02 SHORTNESS OF BREATH 05/27/2017 GWEN STYLES MD Ot Z72.0 TOBACCO USE 05/27/2017 MARICRUZ WOLFA L CURING OVEN ATTENDANT Ot M79.671 PAIN IN RIGHT FOOT 05/27/2017 MARICRUZ WOLFA Brown CURING OVEN ATTENDANT Ot M79.672 PAIN IN LEFT FOOT 05/27/2017 MARICRUZ WOLFA L CURING OVEN ATTENDANT Ot R20.9 UNSPECIFIED DISTURBANCES OF SKIN SENSATI 05/27/2017 MARICRUZ WOLFA L CURING OVEN ATTENDANT Ot R09.89 OTH SYMPTOMS AND SIGNS INVOLVING [...] UNSPECIFIED 05/27/2017 ALISE HATFIELD MD Ot Z79.84 SNF (CURRENT) USE OF ORAL HYPOGLYC 05/27/2017 ALISE [...] UNSPECIFIED 05/29/2017 ALISE HATFIELD MD, Ot Z79.84 FINANCIAL ADMINISTRATION OFFICER (CURRENT) USE OF ORAL HYPOGLYC 05/29/2017 ALISE [...] MAJOR DEPRESSIVE DISORDER, SINGLE EPISOD 10/08/2018 ARLEEN OCPELAND MD, Ot F41.9 ANXIETY DISORDER, UNSPECIFIED 10/08/2018 [...] Procedures Code Description [place] [address] URINE TEST (IN- HOUSE) 11/05/2012 86665 STREP A (IN-HOUSE) 11/05/2012 04275 A1C (IN-HOUSE) 07/28/2013 26454 PSYCH DIAGNOSTIC EVALUATION 08/04/2013 52878 URINE DRUG SCREEN (IN-HOUSE ) 11/17/2013 66832 URINE DRUG SCREEN (IN-HOUSE ) 12/11/2013 66343 A1C (IN-HOUSE) 02/25/2014 37218 TEST, URINE (IN- HOUSE) 05/03/2014 J1050 DEPO PROVERA 05/03/2014 98357 THERAPUTIC INJ SQ/IM 05/03/2014 87155 PSYCH DIAGNOSTIC EVALUATION 06/08/2014 69794 ROUTINE VENIPUNCTURE 06/16/2014 82423 A1C (IN-HOUSE) 06/16/2014 45878 CBC 06/16/2014 3238126 GFR CALC (RESULT ONLY) 06/16/2014 50933 CMP 06/16/2014 60622 TSH 06/16/2014 87539 ECHO 2D 06/17/2014 13370 AMERITOX 06/17/2014 78289 PSYTX PT&/FAMILY 45 MINUTES 06/29/2014 10105 PSYTX PT&/FAMILY 45 MINUTES 07/07/2014 60875 PSYTX PT&/FAMILY 45 MINUTES 07/12/2014 71587 ROUTINE VENIPUNCTURE 07/14/2014 28396 EKG, TRACING 07/14/2014 LIBRADO HONG 07/14/2014 84964 THERAPUTIC INJ SQ/IM 07/14/2014 J1050 DEPO PROVERA 07/14/2014 57121 TEST, URINE (IN- HOUSE) 07/14/2014 [id number] GFR CALC (RESULT ONLY) 07/14/2014 06772 CMP 07/14/2014 61901 LIPID PANEL 07/14/2014 50743 MAGNESIUM 07/14/2014 17970 CBC 07/14/2014 18337 STRESS TEST, CARDIAC ( SPECIFY TYPE) 07/30/2014 40003 HOLTER MONITOR (OUTPATIENT) 07/30/2014 95153 PSYTX PT&/FAMILY 45 MINUTES 08/05/2014 92797 PSYTX PT&/FAMILY 45 MINUTES 08/12/2014 79721 PSYTX PT&/FAMILY 45 MINUTES 08/23/2014 29768 PSYTX PT&/FAMILY 45 MINUTES 09/01/2014 33740 PSYTX PT&/FAMILY 45 MINUTES 09/30/2014 J1050 DEPO PROVERA 10/04/2014 27046 THERAPUTIC INJ SQ/IM 10/04/2014 62197 TEST, URINE (IN- HOUSE) 10/04/2014 67453 PSYTX PT&/FAMILY 45 MINUTES 10/07/2014 35316 TEST, URINE (IN- HOUSE) 11/01/2014 33376 PSYTX PT&/FAMILY 45 MINUTES 12/07/2014 28793 PSYTX PT&/FAMILY 45 MINUTES 01/12/2015 12468 TEST, URINE (IN- HOUSE) 01/31/2015 69870 SKIN TAG REM 1-15 01/31/2015 52825 COLP/LEEP 01/31/2015 Results Test Result Range CBC [...] culture - 05/27/17 13:26 Bacterial urine culture [id number] NRG COLONY COUNT >100,000/ML NRG FTX;REPORTABLE SENSITIVITY [...] 32.6 g/dL 32.0-36.0 MCV 92.3 fL 80.0-97.0 [place]% 6.2 % 0.0-12.0 MPV 9.9 fL 7.4-10.0 [place]% 67.7 % 37.0-80.0 Plt 377 K/uL 150-400 RBC 3.89 M/uL 3.60-5.00 RDW 11.9 % 11.6-14.8 WBC 13.70 K/uL 5.00-10.00 Rima 9.28 K/uL 2.00-6.90 [place] 0.9 K/uL 0.0-0.9 Baso 0.1 K/uL 0.0-0.2 [...] 06/28/17 19:15 Bacterial urine culture SEE [facility] COLONY COUNT . NRG FTX;REPORTABLE SENSITIVITY REPORTED [...] . NRG Bacterial blood culture SEE [facility] Bacterial susceptibility panel - 06/28/17 19:45 Gentamicin [...] culture - 06/28/17 20:35 Bacterial blood culture [facility] Complete blood count (CBC) with automated [...] 7-25 CREATININE 1.15 mg/dL 0.50-1.10 eGFR NON-AFR. MONGOLIAN 61 mL/min/1.73m2 > OR=60 eGFR 71 mL/min/1.73m2 [...] ng/mL <50 medMATCH Hydromorphone CONSISTENT NRG Morphine 77477 ng/mL <50 medMATCH Morphine CONSISTENT NRG Norhydrocodone [...] NRG STATEMENT OF ADEQUACY: NR INTERPRETATION/RESULT: NR DENTURE CONTOUR WIRE SPECIALIST: NRG HPV mRNA E6/E7, SUREPATH VIAL Not [...] blood basophil count (count/volume) 0.0 10*3/uL 0.0-0.1 Serum or plasma choriogonadotropin ( test) detection - 11/27/18 21:12 Serum or plasma choriogonadotropin ( test) detection NEGATIVE NEGATIVE Comprehensive metabolic panel - 11/27/18 21:12 Serum or plasma sodium measurement (moles/volume) 121 mmol/L 135-145 Serum or plasma potassium measurement (moles/volume) 4.5 mmol/L 3.6-5.0 Serum or plasma chloride measurement (moles/volume) 88 mmol/L 98-107 Carbon dioxide 11 mmol/L 21-32 Serum or plasma anion gap determination (moles/volume) 22 mmol/L 5-14 Serum or plasma urea nitrogen measurement (mass/volume) 27 mg/dL 7-18 Serum or plasma creatinine measurement (mass/volume) 1.56 mg/dL 0.60-1.30 Serum or plasma urea nitrogen/creatinine mass ratio 17 NRG Serum or plasma creatinine measurement with calculation of estimated glomerular filtration rate 37 NRG Serum or plasma glucose measurement (mass/volume) 727 mg/dL 70-105 Serum or plasma calcium measurement (mass/volume) 9.7 mg/dL 8.5-10.1 Serum or plasma total bilirubin measurement (mass/volume) 0.4 mg/dL 0.1-1.0 Serum or plasma alkaline phosphatase measurement (enzymatic activity/volume) 124 U/L 40-136 Serum or plasma aspartate aminotransferase measurement (enzymatic activity/ volume) 25 U/L 5-34 Serum or plasma alanine aminotransferase measurement (enzymatic activity/volume ) 46 U/L 0-55 Serum or plasma protein measurement (mass/volume) 8.7 g/dL 6.4-8.2 Serum or plasma albumin measurement (mass/volume) 4.0 g/dL 3.2-4.5 CALCIUM CORRECTED 9.7 mg/dL 8.5-10.1 Blood manual differential performed detection - 11/27/18 21:12 Blood monocytes/100 leukocytes 7 % NRG Manual blood segmented neutrophils/100 leukocytes 73 % NRG Blood band neutrophils/100 leukocytes 2 % NRG Manual blood lymphocytes/100 leukocytes 18 % NRG Manual eosinophils/100 leukocytes in nose 0 % NRG Manual blood basophils/100 leukocytes 0 % NRG Blood erythrocyte morphology finding identification NORMAL NRG Beta-hydroxybutyric acid measurement - 11/27/18 21:12 Beta-hydroxybutyric acid measurement 0.27 mmol/L 0.00- 0.27 Complete urinalysis with reflex to culture - 11/27/18 21:14 Urine color determination YELLOW NRG Urine clarity [...] count by microscopy (number/high power field ) RARE NRG Bacteria detection in urine sediment by light microscopy NEGATIVE NRG Squamous epithelial cells detection in urine sediment by light microscopy 2-5 NRG Crystals detection in urine sediment by light microscopy NONE NRG Casts detection in urine sediment by light microscopy NONE NRG Mucus detection in urine sediment by light microscopy NEGATIVE NRG Complete urinalysis with reflex to culture NO NRG Urine drug screening test - 11/27/18 21:14 Urine phencyclidine detection by screening method NEGATIVE NEGATIVE Urine benzodiazepines detection by screening method NEGATIVE NEGATIVE Urine cocaine detection NEGATIVE NEGATIVE Urine amphetamines detection by screening method NEGATIVE NEGATIVE Urine methamphetamine detection by screening method NEGATIVE NEGATIVE Urine cannabinoids detection by screening method NEGATIVE NEGATIVE Urine opiates detection by screening method NEGATIVE NEGATIVE Urine barbiturates detection NEGATIVE NEGATIVE Screening urine tricyclic antidepressants detection NEGATIVE NEGATIVE Urine methadone detection by screening method NEGATIVE NEGATIVE Urine oxycodone detection NEGATIVE NEGATIVE Urine propoxyphene detection NEGATIVE NEGATIVE Arterial blood gas measurement - 11/27/18 22:07 Blood pCO2 38 mm[Hg] 35-45 Blood pO2 76 mm[Hg] 79-93 Arterial blood bicarbonate measurement (moles/volume) 22 mmol/L 23-27 Arterial blood base excess by calculation -2.3 mmol/L - 2.5-2.5 Arterial blood oxygen saturation measurement 97 % 94-100 * Inhaled oxygen flow rate ROOM AIR NRG Arterial blood pH measurement with patient temperature correction 7.38 7.37-7.43 Arterial blood carbon dioxide, total measurement (moles/volume) 23.3 mmol/L 21.0-31.0 Body site RIGHT RADIAL NRG Assessment of wrist artery patency prior to arterial puncture YES- POS NRG Setting of ventilation mode NO NRG Measurement of body temperature 97.7 NRG Encounters ACCT No. Visit Date/Time Discharge Status Pt. Type Provider Facility Loc./Unit Complaint [id number] 01/31/2015 13:18:00 01/31/2015 23:59:59 CLS Outpatient CHRIS HELM DO [id number] 01/31/2015 10:27:00 01/31/2015 23:59:59 CLS Outpatient JENNY WOLF APRN [id number] 01/12/2015 15:54:00 01/12/2015 23:59:59 CLS Outpatient RAH SIFUENTES, ANA Servin [id number] 12/30/2014 14:24:00 12/30/2014 23:59:59 CLS Outpatient MADL UNIVERSITY ADMINISTRATIVE ASSISTANTJENNY L [id number] 12/06/2014 13:58:00 12/06/2014 23:59:59 CLS Outpatient ANA MONREAL PHD [id number] 11/29/2014 09:51:00 11/29/2014 23:59:59 CLS Outpatient MADL UNIVERSITY ADMINISTRATIVE ASSISTANTJENNY L [id number] 11/01/2014 12:55:00 11/01/2014 23:59:59 CLS Outpatient MADL UNIVERSITY ADMINISTRATIVE ASSISTANTJENNY L [id number] 10/07/2014 14:58:00 10/07/2014 23:59:59 CLS Outpatient ANA MONREAL PHD [id number] 10/04/2014 13:35:00 10/04/2014 23:59:59 CLS Outpatient CHRIS HELM DO [id number] 10/04/2014 13:35:00 10/04/2014 23:59:59 CLS Outpatient MADL UNIVERSITY ADMINISTRATIVE ASSISTANTJENNY L [id number] 09/30/2014 15:55:00 09/30/2014 23:59:59 CLS Outpatient ANA MONREAL PHD [id number] 09/01/2014 12:42:00 09/01/2014 23:59:59 CLS Outpatient ANA MONREAL PHD [id number] 08/31/2014 14:21:00 08/31/2014 23:59:59 CLS Outpatient MADL UNIVERSITY ADMINISTRATIVE ASSISTANTMARICRUZA L [id number] 08/23/2014 16:02:00 08/23/2014 23:59:59 CLS Outpatient ANA MONREAL PHD [id number] 08/12/2014 10:46:00 08/12/2014 23:59:59 CLS Outpatient ANA MONREAL PHD [id number] 08/05/2014 08:53:00 08/05/2014 23:59:59 CLS Outpatient ANA MONREAL PHD [id number] 07/30/2014 08:52:00 07/30/2014 23:59:59 CLS Outpatient GWEN STYLES MD [id number] 07/14/2014 09:22:00 07/14/2014 23:59:59 CLS Outpatient MADL UNIVERSITY ADMINISTRATIVE ASSISTANT JENNY L [id number] 07/12/2014 13:55:00 07/12/2014 23:59:59 CLS Outpatient ANA MONREAL PHD [id number] 07/07/2014 08:47:00 07/07/2014 23:59:59 CLS Outpatient ANA MONREAL PHD [id number] 07/01/2014 10:57:00 07/01/2014 23:59:59 CLS Outpatient DOMENIC CUELLAR APRN [id number] 06/29/2014 09:55:00 06/29/2014 23:59:59 CLS Outpatient ANA MONREAL PHD [id number] 06/16/2014 14:07:00 06/16/2014 23:59:59 CLS Outpatient JENNY WOLF APRN [id number] 06/16/2014 14:07:00 06/16/2014 23:59:59 CLS Outpatient CHRIS HELM DO Ajay [id number] 06/07/2014 12:42:00 06/07/2014 23:59:59 CLS Outpatient CAMMY TAI LCPC [id number] 05/24/2014 17:18:00 05/24/2014 23:59:59 CLS Outpatient DOMENIC CUELLAR APRN [id number] 05/03/2014 17:52:00 05/03/2014 23:59:59 CLS Outpatient CHRIS HELM DO [id number] 02/25/2014 15:18:00 02/25/2014 23:59:59 CLS Outpatient TIMI SANTOS MD [id number] 12/11/2013 14:55:00 12/11/2013 23:59:59 CLS Outpatient TIMI SANTOS MD [id number] 12/11/2013 14:55:00 12/11/2013 23:59:59 CLS Outpatient TIMI SANTOS MD [id number] 11/17/2013 15:20:00 11/17/2013 23:59:59 CLS Outpatient TIMI SANTOS MD [id number] 07/31/2013 10:46:00 07/31/2013 23:59:59 CLS Outpatient CAMMY TAI LCPC [id number] 07/28/2013 15:27:00 07/28/2013 23:59:59 CLS Outpatient TIMI SANTOS MD [id number] 07/28/2013 15:27:00 07/28/2013 23:59:59 CLS Outpatient TOM TREVINO, TIMI [id number] 11/05/2012 10:40:00 11/05/2012 23:59:59 CLS Outpatient CHRIS HELM DO [id number] 11/05/2012 10:40:00 11/05/2012 23:59:59 CLS Outpatient [id number] 10/08/2012 10:37:00 10/08/2012 23:59:59 [place] [id number] 07/14/2012 11:03:00 07/14/2012 23:59:59 CLS Outpatient [id number] 10/08/2018 19:33:00 10/08/2018 22:26:00 DIS Emergency MIN TREVINO, ARLEEN Al[place]ran [facility] ER STOMACH PAIN, FEVER, NASUEA [id number] 11/11/2017 00:14:00 11/11/2017 23:59:59 CLS Preadmit Leidy HOUSE MD [facility] LAB N20.1 [id number] 08/14/2017 12:10:00 11/10/2017 00:01:00 DIS Outpatient Leidy HOUSE MD [facility] LAB N20.1 [id number] 08/26/2017 11:51:00 08/26/2017 23:59:59 CLS Outpatient Leidy HOUSE MD [facility] RAD CALCULUS OF URETER N20.1 [id number] 06/28/2017 20:38:00 06/30/2017 19:55:00 DIS Inpatient BLANCHE TREVINO, GNEE Rodriguez [facility] 4TH JANEE,UTI,PYELONEPHRITIS,5 MM L KIDNEY STONE [id number] 05/27/2017 12:24:00 05/27/2017 18:52:00 DIS Emergency ALISE HATFIELD MD [facility] ER FEVER/BODYACHES [id number] 02/08/2017 11:53:00 02/08/2017 23:59:59 CLS Outpatient JENNY WOLF CURING OVEN ATTENDANT [facility] RAD ABNORMAL BERNARDINO [id number] 11/23/2016 07:56:00 11/23/2016 23:59:59 CLS Outpatient JUSTIN KING MD [facility] CARD DISC DISORDER [id number] 11/12/2016 13:51:00 11/12/2016 23:59:59 CLS Outpatient MADLMARICRUZA L CURING OVEN ATTENDANT [facility] RAD BILAT COLD FEET, PAIN [id number] 09/24/2016 09:54:00 10/17/2016 15:52:00 DIS Outpatient JUSTIN KING MD [facility] REHAB LUMBAGO [id number] 07/20/2016 08:15:00 07/20/2016 23:59:59 CLS Outpatient GWEN STYLES MD [facility] CARD SOB,PALPITATIONS,HTN, DIABETES MELLITUS TYPE II [id number] 05/01/2016 17:01:00 05/01/2016 19:31:00 DIS Emergency AMOR BISHOP APRN [facility] ER MIGRAINE [id number] 04/27/2016 13:52:00 04/27/2016 23:59:59 CLS Outpatient MADL, JENNY L CURING OVEN ATTENDANT [facility] CARD HEART PALPITATIONS [id number] 02/24/2016 19:44:00 02/25/2016 06:25:00 DIS Outpatient LUCIANO, JENNY L CURING OVEN ATTENDANT [facility] SLEEP SNORING,DAYTIME SLEEPINESS [id number] 02/21/2016 11:56:00 02/21/2016 14:45:00 DIS Outpatient KHURRAM DELGADO DO [facility] SDC BLOOD IN STOOL,REFLEX [id number] 02/17/2016 05:41:00 02/17/2016 12:06:00 DIS Outpatient KHURRAM DELGADO DO [facility] PREOP BLOOD IN STOOL,REFLEX [id number] 12/23/2015 05:43:00 12/23/2015 23:59:59 CLS Outpatient KHURRAM DELGADO DO [facility] PREOP N/V/ GERD [id number] 12/03/2015 03:16:00 12/03/2015 06:48:00 DIS Emergency ARLEEN COPELAND MD [facility] ER VOMITING,RT HIP PAIN( FELL OFF COUCH) [id number] 09/18/2015 19:44:00 09/18/2015 22:40:00 DIS Emergency LETICIA SAXENA [facility] ER DEHYDRATED/LOSS OF HANNA [id number] 06/10/2015 10:43:00 06/10/2015 12:14:00 DIS Outpatient JUSTIN KING MD [facility] CARD DDD LUMBAR [id number] 06/07/2015 21:01:00 06/07/2015 21:40:00 DIS Emergency AMOR BISHOP UNIVERSITY ADMINISTRATIVE ASSISTANT [facility] ER RASH,ITCHING [id number] 05/27/2015 13:25:00 05/27/2015 14:42:00 DIS Emergency AMOR BISHOP APRN [facility] ER RIGHT HAND PAIN/INFECTION [id number] 05/04/2015 15:00:00 05/04/2015 23:59:59 CLS Outpatient JUSTIN KING MD [facility] RAD DDD LUMBAR [id number] 03/02/2015 21:45:00 03/02/2015 23:05:00 DIS Emergency LETICIA SAXENA [facility] ER IRRITATION ON NERVE BURNING SITE [id number] 02/28/2015 11:53:00 02/28/2015 13:43:00 DIS Outpatient JUSTIN KING MD [facility] CARD LUMBAR SPONDOLOYSIS [id number] 02/21/2015 11:57:00 02/21/2015 14:07:00 DIS Outpatient JUSTIN IKNG MD [facility] CARD LUMBAR SPONDOLOYSIS [id number] 02/17/2015 22:32:00 02/18/2015 00:00:00 DIS Emergency AGUSTÍN HARTLEY DO [facility] ER LOWER BACK PAIN [id number] 11/29/2014 10:00:00 11/29/2014 23:59:59 CLS Preadmit EDWIN THOMPSON [facility] CARD CP, PALPITATIONS [id number] 08/30/2014 10:31:00 11/28/2014 00:01:00 DIS Outpatient EDWIN THOMPSON [facility] CP, PALPITATIONS [id number] 09/03/2014 08:49:00 09/03/2014 09:50:00 DIS Outpatient JUSTIN KING MD [facility] LUMBAR SPONDYLOSIS [id number] 08/30/2014 10:23:00 08/30/2014 23:59:59 CLS Outpatient EDWIN THOMPSON [facility] CP, PALPITATIONS [id number] 08/27/2014 08:27:00 08/27/2014 10:01:00 DIS Outpatient JUSTIN KING MD [facility] LUMBAR SPONDYLOSIS [id number] 06/30/2014 10:01:00 06/30/2014 23:59:59 CLS Outpatient JENNY WOLF Via [facility] PALPATATIONS [id number] 05/17/2014 13:05:00 05/17/2014 13:59:00 DIS Outpatient JUSTIN KING MD [facility] LUMBAR SPONDOLOSYSIS [id number] 05/10/2014 12:08:00 05/10/2014 13:06:00 DIS Outpatient JUSTIN KING MD [facility] LUMBAR SPONDOLOYSIS [id number] 05/05/2014 01:33:00 05/05/2014 02:24:00 DIS Emergency ALISE HATFIELD MD [facility] ER LEFT EYE PAIN [id number] 01/29/2014 07:49:00 01/29/2014 09:03:00 DIS Outpatient JUSTIN KING MD [facility] LUMBAR SPONDYLOSIS [id number] 01/08/2014 06:55:00 01/08/2014 07:49:00 DIS Outpatient JUSTIN KING MD [facility] LUMBAR SPONDYLOSIS [id number] 11/13/2013 08:14:00 11/13/2013 10:08:00 DIS Emergency JAIME MUSTAFA DO [facility] ER BACK PAIN [id number] 09/07/2013 17:24:00 09/07/2013 19:59:00 DIS Emergency MOON CHENG, JAIME K [facility] ER MULTIPLE COMPLAINTS [id number] 08/23/2013 17:15:00 08/23/2013 18:18:00 DIS Emergency ARLEEN COPELAND MD [facility] ER LAC ON FINGER [id number] 07/19/2013 14:56:00 07/19/2013 18:06:00 DIS Emergency LETICIA SAXENA [facility] ER RIGHT HAND AND ARM PAIN [id number] 06/30/2013 21:04:00 06/30/2013 21:59:00 DIS Emergency AMOR BISHOP APRN [facility] ER L ARM RASH [id number] 11/27/2018 22:00:00 ACT Inpatient BLANCHE TREVINO, GENE Rodriguez [facility] ICU LLQ ABDOMINAL PAIN;[facility] [id number] 06/10/2015 10:42:00 Document Registration [id number] 06/10/2015 10:42:00 Document Registration [id number] 06/10/2015 10:42:00 Document Registration [id number] 08/31/2012 15:19:00 Document Registration [id number] 01/02/2012 08:02:00 Document Registration [id number] 10/20/2011 03:07:00 Document Registration [id number] 10/19/2011 08:08:00 Document Registration [id number] 12/30/2010 23:31:00 Document Registration [id number] 01/27/2018 14:20:00 01/27/2018 23:59:59 CLS Outpatient MADL JENNY DIEHL [facility] [place] [id number] 07/23/2018 13:20:00 Document Registration [id number] 06/24/2018 14:20:00 Document Registration [id number] 01/01/2018 12:00:00 Document Registration [id number] 06/10/2015 10:44:14 ACT Document Registration [id number] 05/31/2017 12:54:00 05/31/2017 14:35:00 DIS Outpatient Amor Bishop [id number] 05/31/2017 13:00:40 Document Registration [id number] 01/03/2017 09:10:00 Document Registration
[2018-11-27] MEDS: POTASSIUM CL 10MEQ/50ML IVPB X 4 (TOTAL 40 MEQ) IV SCH (23:57)
[2018-11-27] MEDS: 1/2 NS IV SOLUTION 1,000 ML IV SCH (23:57)
[2018-11-27 23:58] LABS: CALCIUM 9.2 MG/DL (8.5-10.1); CREATININE SERUM 1.12 MG/DL (0.60-1.30); POTASSIUM 4.2 MMOL/L (3.6-5.0)
[2018-11-28] VITALS (24 sets, daily range): BP systolic 110–165; BP diastolic 65–112
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
[2018-11-28] MEDS ORDERED: HYDROcodone/APAP 10 MG/325 MG (LORTAB) TAB PO ONE (00:42)
[2018-11-28] MEDS ORDERED: PREGABALIN 75 MG (LYRICA) CAP ONE (00:42)
[2018-11-28] MEDS ORDERED: meTOprolol TARTRATE 25 MG (LOPRESSOR) TABLET ONE (00:43)
[2018-11-28] MEDS: HYDROcodone/APAP 10 MG/325 MG (LORTAB) TAB PO PRN ×4 (01:00→20:22)
[2018-11-28] MEDS: PREGABALIN 75 MG (LYRICA) CAP PO SCH ×4 (01:00→20:11)
[2018-11-28] MEDS: meTOprolol TARTRATE 25 MG (LOPRESSOR) TABLET PO SCH ×3 (01:00→20:11)
--- NOTE | 2018-11-28 01:00 | NUR ---
Pain medication administered for c/o LLQ abdominal pain 07/30. Pt reports the pain is starting to go to the right side in addition to the left side and is a "stabbing, cramping" pain.
[2018-11-28] MEDS: DEXTROSE 10% IV SOLUTION 1,000 ML IV SCH ×2 (01:25→19:45)
[2018-11-28] MEDS: 1/2 NS W/KCL 20 MEQ/L 1,000 ML IV SCH ×2 (01:25→04:08)
[2018-11-28] MEDS: REGULAR inSUlin DRIP 250 UNITS/NS 250 ML IV SCH ×2 (01:26)
[2018-11-28] MEDS: D5 1/2 NS W/KCL 20 MEQ/L 1,000 ML IV SCH ×2 (01:26→04:08)
[2018-11-28] MEDS: D5 1/2 NS IV 1,000 ML IV SCH ×7 (01:26→23:45)
[2018-11-28] MEDS ORDERED: clonazePAM 0.5 MG (KlonoPIN) TAB PO ONE (01:30)
[2018-11-28] MEDS: METHOCARBAMOL 750 MG (ROBAXIN) TAB PO SCH ×3 (01:38→21:55)
[2018-11-28] MEDS: PANTOPRAZOLE 40 MG (PROTONIX) TAB PO SCH ×3 (01:38→20:11)
[2018-11-28] MEDS: SUCRALFATE 1 GM (CARAFATE) TAB PO SCH ×3 (01:38→20:11)
--- NOTE | 2018-11-28 01:40 | NUR ---
This RN to room to administer ordered klonopin 0.25 mg. Pt states she only takes 0.5 mg of klonopin and to "skip it". This RN attempted therapeutic communication and instructed pt on benefits of taking even a partial dose of medication. This RN reported understanding that pt was unaware of dosage earlier, pt reports that the significant other just remembered the dose. Pt reports being "a brutally honest person" and states that she has to take 4 of 0.5 mg klonopin to "feel anything". This RN educated pt on medication regimens and benefits/risks of taking medications in a way that is not prescribed. Pt verbalized understanding, needs reinforcement. Pt also reports taking a "really really old" prescription of acyclovir r/t running out of valurex. Again, this RN educated pt and attempted therapeutic communication. Pt increases in tearfulness and states she has been trying for a long time to obtain a new primary care physician, "but no one will take me with all of my health problems."
[2018-11-28] MEDS: POTASSIUM CL 10MEQ/50ML IVPB X 4 (TOTAL 40 MEQ) IV SCH ×4 (02:16→07:28)
[2018-11-28 04:05] LABS: BASOPHILS % (AUTO) 0 % (0-10); EOSINOPHILS % (AUTO) 0 % (0-10); HEMATOCRIT 37 % (35-52); HEMOGLOBIN 13.3 G/DL (11.5-16.0); LYMPHOCYTES # (AUTO) 3.1 X 10^3 (1.0-4.0); LYMPHOCYTES % (AUTO) 21 % (12-44); MEAN CORPUSCULAR HEMOGLOBIN 31 PG (25-34); MEAN CORPUSCULAR HGB CONC 36 G/DL (32-36); MEAN CORPUSCULAR VOLUME 88 FL (80-99); MONOCYTES # (AUTO) 1.1 X 10^3 (0.0-1.0); MONOCYTES % (AUTO) 7 % (0-12); NEUTROPHILS # (AUTO) 10.7 X 10^3 (1.8-7.8); NEUTROPHILS % (AUTO) 71 % (42-75); PLATELET COUNT 266 10^3/uL (130-400); RED CELL DISTRIBUTION WIDTH 13.2 % (10.0-14.5)
[2018-11-28 04:26] LABS: BUN/CREATININE RATIO 22; CALCIUM 8.6 MG/DL (8.5-10.1); CARBON DIOXIDE 10 MMOL/L (21-32); CHLORIDE 96 MMOL/L (98-107); CREATININE SERUM 0.98 MG/DL (0.60-1.30); GFR ESTIMATED > 60; GLUCOSE 378 MG/DL (70-105); MAGNESIUM 3.4 MG/DL (1.8-2.4); PHOSPHORUS 2.5 MG/DL (2.3-4.7); POTASSIUM 4.1 MMOL/L (3.6-5.0); SODIUM 128 MMOL/L (135-145)
[2018-11-28] MEDS: 1/2 NS IV SOLUTION 1,000 ML IV SCH ×5 (04:35→23:45)
[2018-11-28] MEDS ORDERED: POTASSIUM CL 10MEQ/50ML IVPB 50 ML IV ONE ×2 (07:23→09:59)
[2018-11-28] MEDS ORDERED: FLU QUADRIvalent (5+ YOA) 2018-2019 (AFLURIA) 0.5 ML IM ONE (07:45)
[2018-11-28 08:44] LABS: CALCIUM 8.5 MG/DL (8.5-10.1); CREATININE SERUM 1.06 MG/DL (0.60-1.30); POTASSIUM 3.5 MMOL/L (3.6-5.0)
[2018-11-28] MEDS: ONDANSETRON 4 MG/2 ML (SDV) Z0FRAN IV PRN ×2 (08:44→21:56)
[2018-11-28] MEDS ORDERED: AMOX1TAB11 PO (09:41)
[2018-11-28] MEDS ORDERED: OMEP20TA33 PO (09:41)
[2018-11-28] MEDS ORDERED: SUCR1TAB PO (09:41)
[2018-11-28] MEDS ORDERED: IBUP-30 PO (09:46)
--- NOTE | 2018-11-28 09:47 | NUR ---
SPOKE WITH THE PATIENT ABOUT HER MEDICATIONS. WE WENT OVER THE EXT MED HX AND SHE VERIFIED HOW SHE TAKES THEM. I ALSO SEARCHED FOR RECENT FILLS IN [facility], EVERYTHING IS REFLECTED IN THE EXT MED HX CORRECTLY. SHE STATS SHE IS OUT OF SEVERAL OF HER MEDICATIONS DUE TO NOT BEING ABLE TO ESTABLISH A NEW PRIMARY PHYSICIAN TO GET REFILLS ON HER MEDICATIONS. SHE HAS RECENTLY FILLED AN ANTIBIOTIC WHICH SHE STATES SHE ONLY TOOK 1 DOSE OF PRIOR TO ADMISSION. SHE FILLED CARAFATE 1GM #120 FOR 30 DAYS 10-09-18- SHE STATES SHE ONLY TAKES THIS BID SO SHE IS NOT OUT OF IT YET. SHE IS SUPPOSED TO BE TAKING PROTONIX HOWEVER HAS NOT FILLED IT SINCE 08-11-18 #30 40MG DAILY - SHE HAS BEEN TAKING 2 PRILOSEC OTC TABLETS TWICE DAILY IN PLACE OF THE PROTONIX. SHE STATES SHE ALSO HAS BEEN TAKING IBU OTC NEEDED, SHE STATES SHE TAKES 1600MG AT A TIME HOWEVER I ONLY ENTERED 800MG TID PRN ON THE MED REC. MEDICATIONS SHE STATES SHE IS SUPPOSED TO BE TAKING BUT THEY ARE PAST FOR REFILL ARE FOLLOWS: 07-22-18 CLONAZEPAM 0.5MG #14 FOR A 7 DAY SUPPLY 18 LYRICA 150MG #14 FOR A 7 DAY SUPPLY 07-22-18 HYDROCODONE 5-325MG #21 FOR A 7 DAY SUPPLY 18 GLIMEPIRIDE 2MG BID #180 18 AMLODIPINE 5MG DAILY #90 05-20-18 NABUMETONE 500MG BID #180 18 ROBAXIN 500MG #270 FOR 90 DAYS (STATED 750MG BUT THE 500 IS WHAT IS SHOWN ON EXT MED HX) SHE STATES SHE STILL HAS THE LYRICA SHE TAKES LEFT OVER FROM A PREVIOUS SUPPLY BUT IT HAS NOT BEEN FILLED RECENTLY.
[2018-11-28 13:23] LABS: CALCIUM 8.5 MG/DL (8.5-10.1); CREATININE SERUM 1.09 MG/DL (0.60-1.30); POTASSIUM 3.6 MMOL/L (3.6-5.0)
--- NOTE | 2018-11-28 13:35 | Diagnostic Imaging Report ---
PROCEDURE: US Non-ob pelvis comp/trans. TECHNIQUE: Multiple realtime grayscale images were obtained of the pelvis in various projections endovaginally. Transabdominal imaging was also performed. INDICATION: Left lower quadrant pain. Recent CT demonstrated probable cyst in the left ovary. This study is performed for further evaluation. Correlation is made with prior CT from 11/27/2018. The uterus measures 8.4 x 4.0 x 3.7 cm. Endometrium is 6 mm in thickness. No myometrial mass is identified. The right ovary measures 2.7 x 2.4 x 2.4 cm, and the left ovary measures 3.2 x 3.5 x 2.0 cm. No adnexal mass is seen. There is blood flow to the ovaries. No free fluid is identified. IMPRESSION: Unremarkable pelvic ultrasound. Dictated by: Dictated on workstation # [id number]
[2018-11-28] MEDS ORDERED: IBUPROFEN 800 MG PO PRN (13:45)
[2018-11-28] MEDS ORDERED: IBUPROFEN TABLET 200 MG TAB PO PRN (14:00)
--- NOTE | 2018-11-28 14:38 | History & Physicial ([facility]) ---
HPI History of Present Illness: 38 yo female presented to ER due to severe LLQ pain which started 2 months ago but became markedly worse yesterday. She reports other concerns of irregular menstruation which makes her wonder if this may be endometriosis. She denies fever. She has also had sinus problems for quite some time and was treated with azithromycin and steroids without benefit, was prescribed Augmentin and given steroid shot the day before admission. She states her LLQ pain is improved today but still present. She reports regular bowel movements and no nausea/ vomiting. Source: patient Date seen by provider: Nov 28, 2018 Time Seen by Provider: 11:55 Attending Physician Gene Macario MD PCP No,Local Physician Consult Date of Admission Nov 27, 2018 at 22:00 Home Medications Home Medications Reviewed patient Home Medication Reconciliation performed by pharmacy medication reconciliations land[employer] field technician and/or nursing. Patients Allergies have been reviewed. Allergies Coded Allergies: levofloxacin (Unverified Allergy, Mild, 03/21/09) Quinolones (Verified Allergy, Unknown, 02/10/06) shellfish derived (Verified Allergy, Unknown, 05/27/15) Uncoded Allergies: CLINONE (Allergy, Mild, 03/21/09) DXX-[id number]-Azaqvb Hx Patient Social History Alcohol Use: Rarely Uses Recreational Drug Use: No Smoking Status: Current Everyday Smoker Former smoker/When Quit: February 20, 2016 Type Used: Cigarettes 2nd Hand Smoke Exposure: Yes Recent Foreign Travel: No Contact w/other who traveled: No Recent Hopitalizations: No Recent Infectious Disease Expo: No Immunizations Up To Date Tetanus Booster (TDap): Less than 5yrs Past Medical History PMHx: Chronic back pain DMII PSurgHx: D&C Elbow surgery- unclear type- possible nerve transposition Carpal tunnel release Left eye removal after self-inflicted injury Cholecystectomy BTL Family Medical History Significant Family History: Asthma, CVA Family History: Asthma DAUGHTER FH: stroke GRANDMOTHER 19 MOTHER Review of Systems ([facility]) Constitutional: No fever EENTM: No nose congestion Cardiovascular: No chest pain Gastrointestinal: see HPI Genitourinary: No dysuria Musculoskeletal: back pain Skin: No rash Psychiatric/Neurological: No Symptoms Reported Reviewed Test Results Reviewed Test Results Lab Laboratory Tests Test 11/27/18 21:12 11/27/18 21:14 11/27/18 22:07 11/27/18 23:30 Range/Units White Blood Count 19.8 H 4.3-11.0 10^3/uL Red Blood Count 4.80 4.35-5.85 10^6/uL Hemoglobin 14.9 11.5-16.0 G/DL Hematocrit 41 35-52 % Mean Corpuscular Volume 86 80-99 FL Mean Corpuscular Hemoglobin 31 25-34 PG Mean Corpuscular Hemoglobin Concent 36 32-36 G/DL Red Cell Distribution Width 13.3 10.0-14.5 % Platelet Count 337 130-400 10^3/uL Mean Platelet Volume 10.5 H 7.4-10.4 FL Neutrophils (%) (Auto) 79 H 42-75 % Lymphocytes (%) (Auto) 14 12-44 % Monocytes (%) (Auto) 8 0-12 % Eosinophils (%) (Auto) 0 0-10 % Basophils (%) (Auto) 0 0-10 % Neutrophils # (Auto) 15.6 H 1.8-7.8 X 10^3 Lymphocytes # (Auto) 2.7 1.0-4.0 X 10^3 Monocytes # (Auto) 1.5 H 0.0-1.0 X 10^3 Eosinophils # (Auto) 0.0 0.0-0.3 10^3/uL Basophils # (Auto) 0.0 0.0-0.1 10^3/uL Neutrophils % (Manual) 73 % Lymphocytes % (Manual) 18 % Monocytes % (Manual) 7 % Eosinophils % (Manual) 0 % Basophils % (Manual) 0 % Band Neutrophils 2 % Blood Morphology Comment NORMAL Sodium Level 121 *L 126 L 135-145 MMOL/L Potassium Level 4.5 4.2 3.6-5.0 MMOL/L Chloride Level 88 L 92 L 98-107 MMOL/L Carbon Dioxide Level 11 L 9 *L 21-32 MMOL/L Anion Gap 22 H 25 H 5-14 MMOL/L Blood Urea Nitrogen 27 H 25 H 7-18 MG/DL Creatinine 1.56 H 1.12 0.60-1.30 MG/DL Estimat Glomerular Filtration Rate 37 55 BUN/Creatinine Ratio 17 22 Glucose Level 727 *H 466 *H 70-105 MG/DL Calcium Level 9.7 9.2 8.5-10.1 MG/DL Corrected Calcium 9.7 8.5-10.1 MG/DL Total Bilirubin 0.4 0.1-1.0 MG/DL Aspartate Amino Transf (AST/SGOT) 25 5-34 U/L Alanine Aminotransferase (ALT/SGPT) 46 0-55 U/L Alkaline Phosphatase 124 40-136 U/L Total Protein 8.7 H 6.4-8.2 GM/DL Albumin 4.0 3.2-4.5 GM/DL Beta-Hydroxybutyrate (Chem panel) 0.27 0.00-0.27 MMOL/L Serum Test, Qualitative NEGATIVE NEGATIVE Urine Color YELLOW Urine Clarity CLEAR Urine pH 6 5-9 Urine Specific Bradford 1.010 L 1.016-1.022 Urine Protein 2+ H NEGATIVE Urine Glucose (UA) 4+ H NEGATIVE Urine Ketones NEGATIVE NEGATIVE Urine Nitrite NEGATIVE NEGATIVE Urine Bilirubin NEGATIVE NEGATIVE Urine Urobilinogen NORMAL NORMAL MG/DL Urine Leukocyte Esterase NEGATIVE NEGATIVE Urine RBC (Auto) NEGATIVE NEGATIVE Urine RBC 0-2 /HPF Urine WBC RARE /HPF Urine Squamous Epithelial Cells 2-5 /HPF Urine Crystals NONE /LPF Urine Bacteria NEGATIVE /HPF Urine Casts NONE /LPF Urine Mucus NEGATIVE /LPF Urine Culture Indicated NO Urine Opiates Screen NEGATIVE NEGATIVE Urine Oxycodone Screen NEGATIVE NEGATIVE Urine Methadone Screen NEGATIVE NEGATIVE Urine Propoxyphene Screen NEGATIVE NEGATIVE Urine Barbiturates Screen NEGATIVE NEGATIVE Ur Tricyclic Antidepressants Screen NEGATIVE NEGATIVE Urine Phencyclidine Screen NEGATIVE NEGATIVE Urine Amphetamines Screen NEGATIVE NEGATIVE Urine Methamphetamines Screen NEGATIVE NEGATIVE Urine Benzodiazepines Screen NEGATIVE NEGATIVE Urine Cocaine Screen NEGATIVE NEGATIVE Urine Cannabinoids Screen NEGATIVE NEGATIVE Blood Gas Puncture Site RIGHT RADIAL Blood Gas Patient Temperature 97.7 Arterial Blood pH 7.38 7.37-7.43 Arterial Blood Partial Pressure CO2 38 35-45 MMHG Arterial Blood Partial Pressure O2 76 L 79-93 MMHG Arterial Blood HCO3 22 L 23-27 MMOL/L Arterial Blood Total CO2 23.3 21.0-31.0 MMOL/L Arterial Blood Oxygen Saturation 97 94-100 % Arterial Blood Base Excess -2.3 -2.5-2.5 MMOL/L Cade Test YES-POS Blood Gas Ventilator Setting NO Blood Gas Inspired Oxygen ROOM AIR Test 11/27/18 23:31 11/28/18 00:00 11/28/18 01:05 11/28/18 02:11 Range/Units Glucometer 481 *H 398 H 389 H 70-110 MG/DL Test 11/28/18 03:15 11/28/18 03:18 11/28/18 04:28 11/28/18 05:59 Range/Units White Blood Count 15.0 H 4.3-11.0 10^3/uL Red Blood Count 4.24 L 4.35-5.85 10^6/uL Hemoglobin 13.3 11.5-16.0 G/DL Hematocrit 37 35-52 % Mean Corpuscular Volume 88 80-99 FL Mean Corpuscular Hemoglobin 31 25-34 PG Mean Corpuscular Hemoglobin Concent 36 32-36 G/DL Red Cell Distribution Width 13.2 10.0-14.5 % Platelet Count 266 130-400 10^3/uL Mean Platelet Volume 11.0 H 7.4-10.4 FL Neutrophils (%) (Auto) 71 42-75 % Lymphocytes (%) (Auto) 21 12-44 % Monocytes (%) (Auto) 7 0-12 % Eosinophils (%) (Auto) 0 0-10 % Basophils (%) (Auto) 0 0-10 % Neutrophils # (Auto) 10.7 H 1.8-7.8 X 10^3 Lymphocytes # (Auto) 3.1 1.0-4.0 X 10^3 Monocytes # (Auto) 1.1 H 0.0-1.0 X 10^3 Eosinophils # (Auto) 0.0 0.0-0.3 10^3/uL Basophils # (Auto) 0.0 0.0-0.1 10^3/uL Sodium Level 128 L 135-145 MMOL/L Potassium Level 4.1 3.6-5.0 MMOL/L Chloride Level 96 L 98-107 MMOL/L Carbon Dioxide Level 10 L 21-32 MMOL/L Anion Gap 22 H 5-14 MMOL/L Blood Urea Nitrogen 22 H 7-18 MG/DL Creatinine 0.98 0.60-1.30 MG/DL Estimat Glomerular Filtration Rate > 60 BUN/Creatinine Ratio 22 Glucose Level 378 H 70-105 MG/DL Calcium Level 8.6 8.5-10.1 MG/DL Phosphorus Level 2.5 2.3-4.7 MG/DL Magnesium Level 3.4 H 1.8-2.4 MG/DL Glucometer 388 H 379 H 321 H 70-110 MG/DL Test 11/28/18 07:30 11/28/18 08:15 11/28/18 09:59 11/28/18 11:04 Range/Units Glucometer 284 H 281 H 197 H 70-110 MG/DL Sodium Level 127 L 135-145 MMOL/L Potassium Level 3.5 L 3.6-5.0 MMOL/L Chloride Level 95 L 98-107 MMOL/L Carbon Dioxide Level 14 L 21-32 MMOL/L Anion Gap 18 H 5-14 MMOL/L Blood Urea Nitrogen 19 H 7-18 MG/DL Creatinine 1.06 0.60-1.30 MG/DL Estimat Glomerular Filtration Rate 58 BUN/Creatinine Ratio 18 Glucose Level 283 H 70-105 MG/DL Calcium Level 8.5 8.5-10.1 MG/DL Test 11/28/18 12:55 Range/Units Sodium Level 127 L 135-145 MMOL/L Potassium Level 3.6 3.6-5.0 MMOL/L Chloride Level 97 L 98-107 MMOL/L Carbon Dioxide Level 12 L 21-32 MMOL/L Anion Gap 18 H 5-14 MMOL/L Blood Urea Nitrogen 18 7-18 MG/DL Creatinine 1.09 0.60-1.30 MG/DL Estimat Glomerular Filtration Rate 56 BUN/Creatinine Ratio 17 Glucose Level 277 H 70-105 MG/DL Calcium Level 8.5 8.5-10.1 MG/DL Radiology CT abd/pelvis 11/27/18: IMPRESSION: 1. There is no acute abnormality of the abdomen or pelvis. In particular, there is no sign of obstruction of either collecting system by a calculus. 2. There is a question of a cyst associated with the left ovary. Recommendations as above. 3. 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 Physical Exam-([facility]) Physical Exam Vital Signs VS - Last 72 Hours, by Label 11/27/18 11/27/18 11/27/18 11/27/18 21:10 22:52 23:00 23:10 Temp 97.7 97.0 Pulse 104 101 98 Resp 26 33 B/P (MAP) 159/108 (125) 147/94 (111) Pulse Ox 98 97 98 O2 Delivery Room Air Room Air Room Air 11/27/18 11/27/18 11/27/18 11/27/18 23:12 23:15 23:30 23:45 Temp 98.4 Pulse 95 112 108 101 Resp 20 20 10 27 B/P (MAP) 150/109 (123) 178/100 (126) 156/95 (115) 145/95 (112) Pulse Ox 97 96 98 96 O2 Delivery Room Air Room Air Room Air Room Air 11/28/18 11/28/18 11/28/18 11/28/18 00:00 00:00 01:00 01:03 Pulse 102 103 97 Resp 26 18 B/P (MAP) 165/94 (117) 128/92 (104) Pulse Ox 97 96 97 O2 Delivery Room Air Room Air Room Air 11/28/18 11/28/18 11/28/18 11/28/18 02:00 03:00 04:00 04:00 Pulse 99 87 89 Resp 15 18 26 B/P (MAP) 123/79 (94) 113/65 (81) 134/90 (105) Pulse Ox 97 95 98 97 O2 Delivery Room Air Room Air Room Air Room Air 11/28/18 11/28/18 11/28/18 11/28/18 04:04 05:00 06:00 07:00 Temp 97.4 Pulse 92 79 100 Resp 26 23 15 B/P (MAP) 127/69 (88) 153/97 (115) 157/100 (119) Pulse Ox 97 99 97 O2 Delivery Room Air Room Air Room Air 11/28/18 11/28/18 11/28/18 11/28/18 07:00 08:00 08:00 09:00 Pulse 88 96 87 Resp 15 25 B/P (MAP) 150/94 (112) 147/97 (114) Pulse Ox 98 98 99 O2 Delivery Room Air Room Air Room Air 11/28/18 11/28/18 11/28/18 11/28/18 10:00 11:00 12:00 12:00 Pulse 78 79 86 Resp 19 28 14 B/P (MAP) 148/96 (113) 148/112 (124) Pulse Ox 99 99 98 98 O2 Delivery Room Air Room Air Room Air Room Air 11/28/18 11/28/18 13:00 15:26 Pulse 78 Pulse Ox 98 O2 Delivery Room Air Capillary Refill : Less Than 3 Seconds General Appearance: no apparent distress Respiratory: lungs clear, normal breath sounds Cardiovascular: regular rate, rhythm, no murmur Gastrointestinal: normal bowel sounds Extremities: no pedal edema Neurologic/Psychiatric: normal mood/affect Skin: normal color, warm/dry Assessment/Plan Assessment/Plan Admission Status: Inpatient Order (span 2 midnights) Reason for Inpatient Admission: Severe hyperglycemia requiring insulin drip (1) Uncontrolled type 2 DM with hyperosmolar nonketotic hyperglycemia Status: Acute Assessment & Plan: Likely secondary to recent high doses of steroids in addition to admitted dietary indiscretions day of admission. Insulin drip per DKA protocol. (2) High anion gap metabolic acidosis Status: Acute Assessment & Plan: pH normal on ABG, but has high anion gap with low bicarb on labs. Improving with insulin drip overnight. Continue insulin drip per DKA protocol. (3) Left ovarian cyst Status: Acute Assessment & Plan: Possible, based on CT imaging. Check ultrasound. (4) Hypertension Status: Chronic Assessment & Plan: Resume metoprolol. Qualifiers: Qualified Codes: I10 - Essential (primary) hypertension (5) Left lower quadrant abdominal pain of unknown etiology Status: Acute Assessment & Plan: Possibly ovarian cyst related, but given chronicity may have another etiology. CT otherwise unrevealing. Will check GC/chlamydia given history of HSV and HPV per report, concern for possible STI related pelvic pain and abnormal menstruation. (6) DVT prophylaxis Status: Acute Assessment & Plan: Enoxaparin Clinical Quality Measures DVT/VTE Risk/Contraindication: Risk Factor Score Per Nursin RFS Level Per Nursing on Admit: 1=Low/No VTE PPX GENE MACARIO MD Nov 28, 2018 14:38
[2018-11-28] MEDS: ENOXAPARIN 40 MG/0.4 ML (LOVENOX) SYR SQ SCH (15:01)
[2018-11-28] MEDS: POTASSIUM CL 10 MEQ/50 ML IVPB (PRE-MIX) IV SCH ×10 (15:01→23:32)
[2018-11-28 17:59] LABS: BUN/CREATININE RATIO 21; CALCIUM 8.6 MG/DL (8.5-10.1); CARBON DIOXIDE 16 MMOL/L (21-32); CHLORIDE 97 MMOL/L (98-107); CREATININE SERUM 0.92 MG/DL (0.60-1.30); GFR ESTIMATED > 60; GLUCOSE 259 MG/DL (70-105); POTASSIUM 4.2 MMOL/L (3.6-5.0); SODIUM 128 MMOL/L (135-145)
[2018-11-28] MEDS: AUGMENTIN 500 MG TAB (AMOXICILLIN/CLAVULANATE) PO SCH (20:11)
[2018-11-28] MEDS ORDERED: AMOXICILLIN PO SCH (21:00)
[2018-11-28] MEDS ORDERED: [UNRECOGNIZED DRUG - OTHER] PO SCH (21:00)
[2018-11-28] MEDS ORDERED: POTASSIUM CLAV PO SCH (21:00)
[2018-11-28 21:48] LABS: BUN/CREATININE RATIO 17; CALCIUM 8.6 MG/DL (8.5-10.1); CARBON DIOXIDE 17 MMOL/L (21-32); CHLORIDE 100 MMOL/L (98-107); CREATININE SERUM 0.98 MG/DL (0.60-1.30); GFR ESTIMATED > 60; GLUCOSE 204 MG/DL (70-105); POTASSIUM 4.1 MMOL/L (3.6-5.0); SODIUM 131 MMOL/L (135-145)
[2018-11-29] VITALS (15 sets, daily range): BP systolic 98–164; BP diastolic 68–130
[2018-11-29] MEDS: REGULAR inSUlin DRIP 250 UNITS/NS 250 ML IV SCH ×2 (00:17)
--- NOTE | 2018-11-29 00:21 | NUR ---
Patient's glucose level is 230, according to protocol doctor must be informed as patient is already at highest dose of insulin. Notified EICU and recommended to leave all fluids as is and wait for BMP at 0300 before changing fluids. Continue hourly checks of blood sugars per protocol and change IV fluids as recommended based off of blood sugars. 0100 glucose is 245, this RN made decision to not notify EICU due to previous discussion. Will continue to monitor patient.
[2018-11-29] MEDS: DEXTROSE 10% IV SOLUTION 1,000 ML IV SCH ×2 (00:43→06:22)
[2018-11-29] MEDS: D5 1/2 NS IV 1,000 ML IV SCH ×3 (01:19→09:22)
[2018-11-29] MEDS: POTASSIUM CL 10 MEQ/50 ML IVPB (PRE-MIX) IV SCH ×13 (01:20→13:46)
[2018-11-29] MEDS: 1/2 NS IV SOLUTION 1,000 ML IV SCH ×2 (03:45→09:53)
[2018-11-29 03:53] LABS: BASOPHILS # (AUTO) 0.1 10^3/uL (0.0-0.1); BASOPHILS % (AUTO) 1 % (0-10); EOSINOPHILS # (AUTO) 0.1 10^3/uL (0.0-0.3); EOSINOPHILS % (AUTO) 1 % (0-10); HEMATOCRIT 37 % (35-52); HEMOGLOBIN 13.3 G/DL (11.5-16.0); LYMPHOCYTES # (AUTO) 3.2 X 10^3 (1.0-4.0); LYMPHOCYTES % (AUTO) 32 % (12-44); MEAN CORPUSCULAR HEMOGLOBIN 32 PG (25-34); MEAN CORPUSCULAR HGB CONC 36 G/DL (32-36); MEAN CORPUSCULAR VOLUME 88 FL (80-99); MEAN PLATELET VOLUME 10.6 FL (7.4-10.4); MONOCYTES # (AUTO) 0.8 X 10^3 (0.0-1.0); MONOCYTES % (AUTO) 8 % (0-12); NEUTROPHILS # (AUTO) 5.6 X 10^3 (1.8-7.8); NEUTROPHILS % (AUTO) 58 % (42-75); PLATELET COUNT 247 10^3/uL (130-400); RED CELL DISTRIBUTION WIDTH 13.6 % (10.0-14.5); WHITE BLOOD COUNT 9.8 10^3/uL (4.3-11.0)
[2018-11-29 04:15] LABS: BUN/CREATININE RATIO 21; CALCIUM 8.5 MG/DL (8.5-10.1); CARBON DIOXIDE 14 MMOL/L (21-32); CHLORIDE 102 MMOL/L (98-107); CREATININE SERUM 0.84 MG/DL (0.60-1.30); GFR ESTIMATED > 60; GLUCOSE 207 MG/DL (70-105); MAGNESIUM 2.4 MG/DL (1.8-2.4); PHOSPHORUS 2.6 MG/DL (2.3-4.7); POTASSIUM 3.9 MMOL/L (3.6-5.0); SODIUM 131 MMOL/L (135-145)
[2018-11-29] MEDS: meTOprolol TARTRATE 25 MG (LOPRESSOR) TABLET PO SCH ×2 (08:23→22:05)
[2018-11-29] MEDS: SUCRALFATE 1 GM (CARAFATE) TAB PO SCH ×2 (08:23→22:05)
[2018-11-29] MEDS: PANTOPRAZOLE 40 MG (PROTONIX) TAB PO SCH ×2 (08:23→22:05)
[2018-11-29] MEDS: METHOCARBAMOL 750 MG (ROBAXIN) TAB PO SCH ×2 (08:23→22:05)
[2018-11-29] MEDS: ONDANSETRON 4 MG/2 ML (SDV) Z0FRAN IV PRN (08:23)
[2018-11-29] MEDS: PREGABALIN 75 MG (LYRICA) CAP PO SCH ×3 (08:24→22:05)
[2018-11-29] MEDS: AUGMENTIN 500 MG TAB (AMOXICILLIN/CLAVULANATE) PO SCH ×2 (08:24→22:05)
[2018-11-29] MEDS ORDERED: inSUlin DETERMIR 1 UNIT/0.01 ML (LEVEMIR) CHARGE PER UNIT SQ ONE (09:14)
[2018-11-29] MEDS ORDERED: inSUlin DETERMIR 1 UNIT/0.01 ML (LEVEMIR) CHARGE PER UNIT SQ SCH (09:45)
--- NOTE | 2018-11-29 12:25 | Progress Note-Hospitalist ---
Subjective HPI/CC On Admission Date Seen by Provider: Nov 29, 2018 Time Seen by Provider: 08:00 Subjective/Events-last exam Patient reports feeling better still has left lower quadrant abdominal pain but the pain has moderated and she does not feel it's bad enough to warrant another hydrocodone at this time. She is most anxious about having to give herself insulin again. She been off of all diabetic medication for several months. She admits to the need to find another physician and she was not happy with her care at [facility]. She had been on glimepiride and trulicity up until several months ago but ran out of refills and had not been back to see a physician. She occasionally checks her blood sugar most limited been under 200 on diet until she received several steroid injections both for sinusitis the last one 48 hours ago with Augmentin for her reported infection. She denies chills or fever in association with left lower quadrant abdominal pain that been going on for the past week. Objective Exam Vital Signs Vital Signs Date Time Temp Pulse Resp B/P (MAP) Pulse Ox O2 Delivery O2 Flow Rate FiO2 11/29/18 12:00 78 16 128/77 (94) 96 Room Air 11/29/18 08:00 97.1 Capillary Refill : Less Than 3 Seconds General Appearance: No Apparent Distress, Obese HEENT: PERRL/EOMI Neck: Full Range of Motion, Normal Inspection, Non Tender, Supple, Carotid Bruit Respiratory: Chest Non Tender, Lungs Clear, Normal Breath Sounds, No Accessory Muscle Use, No Respiratory Distress Cardiovascular: Regular Rate, Rhythm, No Edema, No Gallop, No JVD, No Murmur, Normal Peripheral Pulses Gastrointestinal: Normal Bowel Sounds, No Organomegaly, No Pulsatile Mass, Soft , Tenderness (Noted in left lower quadrant no rebound or guarding noted abdomen soft) Extremity: Normal Capillary Refill, Normal Inspection, Normal Range of Motion, Non Tender, No Calf Tenderness, No Pedal Edema Results/Procedures Lab Laboratory Tests 11/28/18 12:55 11/28/18 17:31 11/28/18 21:13 11/29/18 03:00 Patient resulted labs reviewed. Assessment/Plan Assessment and Plan Assess & Plan/Chief Complaint 1. Previous history of type II diabetes mellitus with probable DKA aggravated by recent steroid use. Discussed importance of avoiding steroids in the future and the need for insulin. She states that she will attempt to give herself injections which we will start in the form of twice a day Levemir 20 units and initiate 15 units of NovoLog before meals. Discussed the importance of cutting back on carbohydrates ever taking a dietary history and the need to monitor blood sugar at home. Discussed the importance of getting a primary care provider and if she is not able to find someone outside of [facility] which may be difficult to return to [facility] for ongoing diabetic management and other care needs. 2. Left lower quadrant abdominal pain and initial CT of the abdomen revealed possible left ovarian cyst transvaginal ultrasound did not reveal evidence for cyst raising the possibility of the cyst rupture. Either way her symptoms are improving and no other significant pathology is identified on either of the aforementioned studies other than hepatic steatosis. Will switch to before meals and at bedtime blood sugars and repeat basic metabolic panel in the morning. Clinical Quality Measures DVT/VTE Risk/Contraindication: Risk Factor Score Per Nursin RFS Level Per Nursing on Admit: 1=Low/No VTE PPX PAUL JOHNSON MD Nov 29, 2018 12:25
[2018-11-29] MEDS: ENOXAPARIN 40 MG/0.4 ML (LOVENOX) SYR SQ SCH (13:52)
[2018-11-29] MEDS: inSUlin (REGULAR) HUMAN 1 UNIT/0.01 ML (CHARGE PER UNIT) SC SCH ×2 (13:52→17:44)
--- NOTE | 2018-11-29 14:02 | NUR ---
1335 PT TO ROOM 416 VIA W/C ACCOMPANIED BY ICU NURSE JONH. PT SITTING UP IN BED WATCHING TELEVISION, VOICES NO C/O OF PAIN OR NEEDS AT THIS TIME, CALL LIGHT AND OTHER PERSONAL BELONGING WITHIN REACH WILL CONTINUE TO MONITOR. ASSESSMENT COMPLETE
[2018-11-29] MEDS: HYDROcodone/APAP 10 MG/325 MG (LORTAB) TAB PO PRN (17:57)
--- NOTE | 2018-11-29 20:46 | NUR ---
CONTACTED DR JOHNSON TO CLARIFY ORDER FOR HS LEVEMIR. PATIENTS NIGHT FSBS IS 285. DR JOHNSON ORDERED DC HUMULIN R. START NOVOLOG 20 UNITS AC. LEVEMIR 20 UNITS AM AND HS. NOVOLOG 10 UNITS NOW. TORBV
[2018-11-29] MEDS ORDERED: inSUlin ASPART (NovoLOG) 1 UNIT/0.01 ML (CHARGE PER UNIT) SC ONE (21:00)
[2018-11-29] MEDS: inSUlin DETERMIR 1 UNIT/0.01 ML (LEVEMIR) CHARGE PER UNIT SQ SCH (22:08)
[2018-11-30] MEDS: HYDROcodone/APAP 10 MG/325 MG (LORTAB) TAB PO PRN ×2 (00:33→12:06)
[2018-11-30] MEDS: ONDANSETRON 4 MG/2 ML (SDV) Z0FRAN IV PRN (00:33)
[2018-11-30 04:00] VITALS: BP 137/84
[2018-11-30 06:05] LABS: BASOPHILS # (AUTO) 0.1 10^3/uL (0.0-0.1); BASOPHILS % (AUTO) 1 % (0-10); EOSINOPHILS # (AUTO) 0.3 10^3/uL (0.0-0.3); EOSINOPHILS % (AUTO) 3 % (0-10); HEMATOCRIT 39 % (35-52); HEMOGLOBIN 13.6 G/DL (11.5-16.0); LYMPHOCYTES # (AUTO) 3.2 X 10^3 (1.0-4.0); LYMPHOCYTES % (AUTO) 27 % (12-44); MEAN CORPUSCULAR HEMOGLOBIN 31 PG (25-34); MEAN CORPUSCULAR HGB CONC 35 G/DL (32-36); MEAN CORPUSCULAR VOLUME 89 FL (80-99); MEAN PLATELET VOLUME 10.5 FL (7.4-10.4); MONOCYTES # (AUTO) 0.6 X 10^3 (0.0-1.0); MONOCYTES % (AUTO) 5 % (0-12); NEUTROPHILS # (AUTO) 7.9 X 10^3 (1.8-7.8); NEUTROPHILS % (AUTO) 65 % (42-75); PLATELET COUNT 281 10^3/uL (130-400); RED CELL DISTRIBUTION WIDTH 13.6 % (10.0-14.5); WHITE BLOOD COUNT 12.2 10^3/uL (4.3-11.0)
[2018-11-30 06:22] LABS: BUN/CREATININE RATIO 25; CALCIUM 9.2 MG/DL (8.5-10.1); CARBON DIOXIDE 18 MMOL/L (21-32); CHLORIDE 95 MMOL/L (98-107); CREATININE SERUM 0.96 MG/DL (0.60-1.30); GFR ESTIMATED > 60; GLUCOSE 313 MG/DL (70-105); PHOSPHORUS 3.5 MG/DL (2.3-4.7)
[2018-11-30 06:40] LABS: MAGNESIUM 3.2 MG/DL (1.8-2.4); POTASSIUM 4.4 MMOL/L (3.6-5.0); SODIUM 130 MMOL/L (135-145)
[2018-11-30] MEDS: inSUlin ASPART (NovoLOG) 1 UNIT/0.01 ML (CHARGE PER UNIT) SC SCH ×2 (06:46→12:06)
[2018-11-30 08:00] VITALS: BP 147/87
[2018-11-30] MEDS: PREGABALIN 75 MG (LYRICA) CAP PO SCH ×2 (08:20→12:06)
[2018-11-30] MEDS: AUGMENTIN 500 MG TAB (AMOXICILLIN/CLAVULANATE) PO SCH (08:20)
[2018-11-30] MEDS: METHOCARBAMOL 750 MG (ROBAXIN) TAB PO SCH (08:20)
[2018-11-30] MEDS: PANTOPRAZOLE 40 MG (PROTONIX) TAB PO SCH (08:20)
[2018-11-30] MEDS: meTOprolol TARTRATE 25 MG (LOPRESSOR) TABLET PO SCH (08:20)
[2018-11-30] MEDS: inSUlin DETERMIR 1 UNIT/0.01 ML (LEVEMIR) CHARGE PER UNIT SQ SCH (08:20)
[2018-11-30] MEDS: SUCRALFATE 1 GM (CARAFATE) TAB PO SCH (08:20)
[2018-11-30] MEDS ORDERED: OMEP20TA33 PO (10:46)
[2018-11-30] MEDS ORDERED: PREG75CA PO (10:46)
[2018-11-30] MEDS ORDERED: SUCR1TAB PO (10:46)
[2018-11-30] MEDS ORDERED: HYDR-3820 PO (10:55)
--- NOTE | 2018-11-30 11:08 | Discharge Summary-Hospitalist ---
Diagnosis/Chief Complaint Date of Admission Nov 27, 2018 at 22:00 Date of Discharge Discharge Date: Nov 30, 2018 Discharge Summary Discharge Physical Exam Allergies: Coded Allergies: levofloxacin (Unverified Allergy, Mild, 03/21/09) Quinolones (Verified Allergy, Unknown, 02/10/06) shellfish derived (Verified Allergy, Unknown, 05/27/15) Uncoded Allergies: CLINONE (Allergy, Mild, 03/21/09) Vitals & I&Os Vital Signs Date Time Temp Pulse Resp B/P (MAP) Pulse Ox O2 Delivery O2 Flow Rate FiO2 11/30/18 08:15 Room Air 11/30/18 04:00 97.4 87 20 137/84 (101) 100 General Appearance: No Apparent Distress, Obese HEENT: PERRL/EOMI Respiratory: Chest Non Tender, Lungs Clear, Normal Breath Sounds, No Accessory Muscle Use, No Respiratory Distress Cardiovascular: Regular Rate, Rhythm, No Edema, No Gallop, No JVD, No Murmur, Normal Peripheral Pulses Gastrointestinal: Normal Bowel Sounds, No Organomegaly, No Pulsatile Mass, Soft , Tenderness (Noted in left lower quadrant no rebound or guarding noted abdomen soft) Extremity: Normal Capillary Refill, Normal Inspection, Normal Range of Motion, Non Tender, No Calf Tenderness, No Pedal Edema Hospital Course Was the Problem List Reviewed?: Yes The patient presented to the emergency room with left lower quadrant abdominal pain. In the course of her workup it was noted that her blood sugar was in the 600s without evidence for ketones likely due to combination of running out of medication for her type II diabetes mellitus dietary indiscretion and recent Solu-Medrol injection given an urgent care center with Augmentin for reported sinusitis. Initial CT scan revealed a questionable cyst in the left lower quadrant on the ovary subsequent transvaginal ultrasound did not reveal evidence for cyst. There is a possibility that cyst rupture was the cause of her abdominal pain which improved significantly during her hospital stay for glycemic control. She did have evidence for lactic acidosis likely due to nonketotic hyperosmolar state from hyperglycemia. Appetite was good during her hospital stay with significant improvement in her pain. Blood sugars despite 80 units of combined basal bolus therapy were still around 300 but CO2 level was approximating normal range with stable vital signs. Discussed the importance of cutting back on carbohydrates as she is significantly obese and admitted to the low sugar diet. One month her medications were called out including basic large 60 units daily and NovoLog 20 units before each meal. She was advised to go back to [facility] if she could not find another provider as she had been there once established a patient. She was strongly advised Back on her glycemic load and start monitoring her blood sugars before meals and at bedtime until she establishes arrange on her home diet. She was strongly advised to avoid any form of steroid use unless it was a life- threatening medical condition. She exhibited no sinus symptoms during this admission and so was advised not to finish her Augmentin. Labs (last 24 hrs) Laboratory Tests 11/29/18 13:37: Glucometer 196H 11/29/18 16:45: Glucometer 281H 11/29/18 20:12: Glucometer 285H 11/30/18 00:41: Glucometer 301H 11/30/18 05:32: White Blood Count 12.2H, Red Blood Count 4.44, Hemoglobin 13.6, Hematocrit 39, Mean Corpuscular Volume 89, Mean Corpuscular Hemoglobin 31, Mean Corpuscular Hemoglobin Concent 35, Red Cell Distribution Width 13.6, Platelet Count 281, Mean Platelet Volume 10.5H, Neutrophils (%) (Auto) 65, Lymphocytes (%) (Auto) 27 , Monocytes (%) (Auto) 5, Eosinophils (%) (Auto) 3, Basophils (%) (Auto) 1, Neutrophils # (Auto) 7.9H, Lymphocytes # (Auto) 3.2, Monocytes # (Auto) 0.6, Eosinophils # (Auto) 0.3, Basophils # (Auto) 0.1, Sodium Level 130L, Potassium Level 4.4, Chloride Level 95L, Carbon Dioxide Level 18L, Anion Gap 11, Blood Urea Nitrogen 24H, Creatinine 0.96, Estimat Glomerular Filtration Rate > 60, BUN /Creatinine Ratio 25, Glucose Level 313H, Calcium Level 9.2, Phosphorus Level 3.5, Magnesium Level 3.2H 11/30/18 06:44: Glucometer 327H Microbiology 11/27/18 MRSA Screen - Final, Complete MRSA not isolated Patient resulted labs reviewed. Pending Labs Laboratory Tests 11/30/18 05:32: White Blood Count 12.2, Red Blood Count 4.44, Hemoglobin 13.6, Hematocrit 39, Mean Corpuscular Volume 89, Mean Corpuscular Hemoglobin 31, Mean Corpuscular Hemoglobin Concent 35, Red Cell Distribution Width 13.6, Platelet Count 281, Mean Platelet Volume 10.5, Neutrophils (%) (Auto) 65, Lymphocytes (%) (Auto) 27 , Monocytes (%) (Auto) 5, Eosinophils (%) (Auto) 3, Basophils (%) (Auto) 1, Neutrophils # (Auto) 7.9, Lymphocytes # (Auto) 3.2, Monocytes # (Auto) 0.6, Eosinophils # (Auto) 0.3, Basophils # (Auto) 0.1, Sodium Level 130, Potassium Level 4.4, Chloride Level 95, Carbon Dioxide Level 18, Anion Gap 11, Blood Urea Nitrogen 24, Creatinine 0.96, Estimat Glomerular Filtration Rate > 60, BUN/ Creatinine Ratio 25, Glucose Level 313, Calcium Level 9.2, Phosphorus Level 3.5 , Magnesium Level 3.2 11/30/18 06:44: Glucometer 327 Discussion & Recommendations Discharge Planning: >30 minutes discharge planning Discharge Home Medications: Active Scripts Active Hydrocodon-Acetaminophn 10-325 (Hydrocodone/Acetaminophen) 1 Each Tablet 1 Ea PO Q4H PRN 20 Days Lyrica (Pregabalin) 75 Mg Capsule 150 Mg PO TID 30 Days Prilosec Otc (Omeprazole Magnesium) 20 Mg Tablet.dr 40 Mg PO BID 30 Days Sucralfate 1 Gm Tablet 1 Gm PO BID 30 Days Reported Advil (Ibuprofen) 200 Mg Tablet 800 Mg PO TID PRN Amox Tr-K Clv 500-125 mg Tab (Amoxicillin/Potassium Clav) 1 Each Tablet 1 Tab PO BID 10 Days 10 DAY SUPPLY FILLED 11-26-18 Metoprolol Tartrate 25 Mg Tablet 25 Mg PO BID Instructions to patient/family Please see electronic discharge instructions given to patient. Clinical Quality Measures DVT/VTE Risk/Contraindication: Risk Factor Score Per Nursin RFS Level Per Nursing on Admit: 1=Low/No VTE PPX PAUL JOHNSON MD Nov 30, 2018 11:08
--- NOTE | 2018-11-30 11:16 | Diagnostic Imaging Report ---
Indication: Left lower quadrant pain. Time of exam: 3:17 AM Comparison is made with prior exam from 10/20/2011. The heart size is normal. The pulmonary vascularity is unremarkable. The lungs are clear. No infiltrate, effusion or pneumothorax is detected. Impression: No acute cardiopulmonary process is detected. Dictated by: Dictated on workstation # [id number]
[2018-11-30 13:39] VITALS: BP 147/87
--- NOTE | 2018-12-04 08:28 | Physician Query Clarification ---
PQ-Further Specificity Admission/Discharge Admission Date: Nov 27, 2018 at 22:00 Discharge Date: Nov 30, 2018 at 13:35 The medical record reflects the following clinical scenario: History/Risk Factors: DM type 2, LLQ pain, sinusitis, HTN, RA Clinical Findings: Glucose 727, specific gravity 1.010, urine protein 2+, urine glucose 4+, negative ketones Treatment: Insulin drip Question: Can you further specify the cause of the uncontrolled type 2 diabetes per the clinical indicators above? Please document below. 1. Uncontrolled type 2 diabetes mellitus with hyperosmolar nonketotic hypergycemia 2. Probable DKA aggravated by recent steroid use 3. Other, with explanation of the clinical findings. 4. Clinically undetermined, no explanation for the clinical findings. PHYSICIAN RESPONSE Can you specify per above: Other, explanation/clinical finding Explanation/Clinical Findings Medication noncompliance and recent steroid injection. In responding to this query, please exercise your independent professional judgment. The purpose of this communication is to more accurately reflect the complexity of your patients condition. The fact that a question is asked does not imply that any particular answer is desired or expected. Thank you for your timely response to this clarification. Requestors name: Bennett THIS PHYSICIAN QUERY FORM IS A PERMANENT PART OF THE MEDICAL RECORD BENNETT LOPEZ Dec 04, 2018 08:28 PAUL JOHNSON MD Dec 05, 2018 10:11
--- NOTE | 2018-12-04 08:37 | Physician Query Clarification ---
PQ-Further Specificity Admission/Discharge Admission Date: Nov 27, 2018 at 22:00 Discharge Date: Nov 30, 2018 at 13:35 The medical record reflects the following clinical scenario: History/Risk Factors: DM type 2, HTN, LLQ pain, sinusitis, RA Clinical Findings: Anion gap 25, specific gravity 1.010, urine protein 2+, urine glucose 4+, negative ketones Treatment: Insulin drip Question: Can you further specify high anion gap metabolic acidosis per the clinical indicators above? Please document below. 1. related to the type 2 diabetic complication 2. independent of the type 2 diabetic condition 3. Other, with explanation of the clinical findings. 4. Clinically undetermined, no explanation for the clinical findings. PHYSICIAN RESPONSE Can you specify per above: Other, explanation/clinical finding Explanation/Clinical Findings lactic acidosis due to dehydration from hyperglycemia In responding to this query, please exercise your independent professional judgment. The purpose of this communication is to more accurately reflect the complexity of your patients condition. The fact that a question is asked does not imply that any particular answer is desired or expected. Thank you for your timely response to this clarification. Requestors name: Bennett THIS PHYSICIAN QUERY FORM IS A PERMANENT PART OF THE MEDICAL RECORD BENNETT LOPEZ Dec 04, 2018 08:37 PAUL JOHNSON MD Dec 05, 2018 10:13
== END 2018-11-30 13:35 | disposition home or self-care (01) | DRG 638 ==
LOC: EDUNIT# 20:48 → ER 20:49 → ICU 22:00 → 4TH 11-29 13:07
PROVIDERS: ADMIT Family Medicine; ATTEND Internal Medicine
DX: E11.00 Type 2 diabetes mellitus with hyperosmolarity without nonketotic hyperglycemic-hyperosmolar coma (NKHHC) (principal); E87.2 Acidosis; E86.0 Dehydration; N83.202 Unspecified ovarian cyst, left side; J32.9 Chronic sinusitis, unspecified; N92.6 Irregular menstruation, unspecified; N94.10 Unspecified dyspareunia; J45.909 Unspecified asthma, uncomplicated; I10 Essential (primary) hypertension; R00.2 Palpitations; G43.909 Migraine, unspecified, not intractable, without status migrainosus; E11.40 Type 2 diabetes mellitus with diabetic neuropathy, unspecified; K58.9 Irritable bowel syndrome, unspecified; M06.9 Rheumatoid arthritis, unspecified; M54.9 Dorsalgia, unspecified; F41.9 Anxiety disorder, unspecified; F43.10 Post-traumatic stress disorder, unspecified; F32.9 Major depressive disorder, single episode, unspecified; Z87.891 Personal history of nicotine dependence; Z87.442 Personal history of urinary calculi; Z87.19 Personal history of other diseases of the digestive system; Z68.37 Body mass index [BMI] 37.0-37.9, adult; E66.9 Obesity, unspecified; Z91.14 Patient's other noncompliance with medication regimen; T38.0X5A Adverse effect of glucocorticoids and synthetic analogues, initial encounter
CPT/HCPCS: 36415; 71045; 74177; 76830; 76856; 80048; 80053; 80306; 81000; 82010; 82805; 82962; 83036; 83735; 84100; 84703; 85007; 85025; 85027; 87081; 87491; 87591; 96361; 96374; 96375

== ENCOUNTER 2019-02-08 21:16 | Emergency (ER) | payer MEDICAID ==
[~2019-02-08] VITALS: Ht 160 cm; Wt 86.2 kg
[~2019-02-08 21:16] MED LIST changes: +AMOX1TAB11 PO; +HYDR-3820 PO; +IBUP-30 PO; +OMEP20TA33 PO; +PREG75CA PO
[2019-02-08 21:55] VITALS: BP 142/86
--- NOTE | 2019-02-08 23:37 | NUR ---
Updated pt on expected wait times to be seen by provider. Offered recliner in fast track room to patient while waiting, pt declined stating she would rather wait for a bed to lay flat as that is more comfortable for her back pain. Pt verbalized understanding for additional wait time for ED cot to be open as all rooms are occupied at this time.
--- NOTE | 2019-02-09 00:14 | NUR ---
This RN to waiting room to bring patient to ED exam room. Pt not in waiting room at this time.
== END 2019-02-09 00:14 | disposition left against medical advice (07) ==
LOC: EDUNIT# 21:16 → ER 21:17
DX: M54.9 Dorsalgia, unspecified (principal)
CPT/HCPCS: 99281

== ENCOUNTER 2019-04-02 00:43 | Emergency (ER) | payer MEDICAID ==
[~2019-04-02] VITALS: Ht 160 cm; Wt 86.2 kg
[~2019-04-02 00:43] MED LIST changes: -BESI5DRO; -DOXY100T2
[2019-04-02] MEDS ORDERED: LIDOCAINE 2% VISCOUS 15 ML UDC PO ONE (01:00)
[2019-04-02] MEDS ORDERED: ONDANSETRON 4 MG (ZOFRAN) ORAL DISSOLVE TAB SL ONE (01:00)
[2019-04-02] MEDS ORDERED: ANTACID SUSP 30 ML UDC (MYLANTA) PO ONE (01:00)
[2019-04-02] MEDS ORDERED: BESI5DRO (01:01)
[2019-04-02] MEDS ORDERED: DOXY100T2 (01:01)
[2019-04-02] MEDS ORDERED: FAMOTIDINE 20MG/2ML IV (PEPCID) IVP ONE (01:30)
[2019-04-02 01:34] LABS: BILIRUBIN,URINE NEGATIVE (NEGATIVE); CLARITY,URINE SLIGHTLY CLOUDY; COLOR,URINE YELLOW; GLUCOSE, URINE (UA) 4+ (NEGATIVE); KETONES,URINE NEGATIVE (NEGATIVE); LEUKOCYTE ESTERASE ,URINE NEGATIVE (NEGATIVE); NITRITE,URINE NEGATIVE (NEGATIVE); PH,URINE 6.5 (5-9); PROTEIN,URINE 2+ (NEGATIVE); UROBILINOGEN,URINE NORMAL (NORMAL)
[2019-04-02 01:41] LABS: BACTERIA,URINE TRACE /HPF; RBC,URINE 50-100 /HPF; SQUAMOUS EPITHELIAL CELL,UR 0-2 /HPF
[2019-04-02 01:43] LABS: BASOPHILS # (AUTO) 0.1 10^3/uL (0.0-0.1); BASOPHILS % (AUTO) 1 % (0-10); EOSINOPHILS # (AUTO) 0.2 10^3/uL (0.0-0.3); EOSINOPHILS % (AUTO) 2 % (0-10); HEMATOCRIT 45 % (35-52); HEMOGLOBIN 15.9 G/DL (11.5-16.0); LYMPHOCYTES # (AUTO) 3.9 X 10^3 (1.0-4.0); LYMPHOCYTES % (AUTO) 36 % (12-44); MEAN CORPUSCULAR HEMOGLOBIN 30 PG (25-34); MEAN CORPUSCULAR HGB CONC 36 G/DL (32-36); MEAN CORPUSCULAR VOLUME 85 FL (80-99); MEAN PLATELET VOLUME 10.6 FL (7.4-10.4); MONOCYTES % (AUTO) 9 % (0-12); NEUTROPHILS # (AUTO) 5.8 X 10^3 (1.8-7.8); NEUTROPHILS % (AUTO) 53 % (42-75); PLATELET COUNT 313 10^3/uL (130-400); RED CELL DISTRIBUTION WIDTH 13.2 % (10.0-14.5)
[2019-04-02 02:07] LABS: ALBUMIN 4.3 GM/DL (3.2-4.5); BILIRUBIN,TOTAL 0.4 MG/DL (0.1-1.0); CREATININE SERUM 1.11 MG/DL (0.60-1.30); POTASSIUM 4.4 MMOL/L (3.6-5.0); TOTAL PROTEIN 8.1 GM/DL (6.4-8.2)
--- NOTE | 2019-04-02 02:09 | ED Abdominal Pain ---
General Chief Complaint: Abdominal/GI Problems Stated Complaint: SEVERE STOMACH PAIN AND CRAMPING Nursing Triage Note: UPPER ABDOMINAL PAIN/NAUSEA FOR "MONTHS" REPORTS WORSE FOR A FEW WEEKS. Sepsis Screen: No Definite Risk Source of Information: Patient Exam Limitations: No Limitations History of Present Illness Date Seen by Provider: Apr 02, 2019 Time Seen by Provider: 00:50 Initial Comments This 39-year-old woman presents to the emergency room with upper abdominal pain and burning that started a couple months ago. It is been intermittent until the last few weeks when it became more constant and more intense. She rates her pain as 8/10 now. It is accompanied by nausea without vomiting. She denies constipation or diarrhea. She denies any significant alcohol consumption. Allergies and Home Medications Allergies Coded Allergies: levofloxacin (Unverified Allergy, Mild, 03/21/09) Quinolones (Verified Allergy, Unknown, 02/10/06) Sulfa (Sulfonamide Antibiotics) (Unverified Allergy, Unknown, 02/08/19) diclofenac (Verified Allergy, Unknown, 02/08/19) shellfish derived (Verified Allergy, Unknown, 05/27/15) Uncoded Allergies: CLINONE (Allergy, Mild, 03/21/09) chloraprep (Allergy, Unknown, 02/08/19) Home Medications Omeprazole 20 Mg Tablet.dr, 20 MG PO BID Prescribed by: ARLEEN RICHARDS on 04/02/19321 Ondansetron 4 Mg Tab.rapdis, 4 MG SL Q4H PRN for NAUSEA/VOMITING Prescribed by: ARLEEN RICHARDS on 04/02/192 Patient Home Medication List Home Medication List Reviewed: Yes Review of Systems Review of Systems Constitutional: no symptoms reported EENTM: No Symptoms Reported Respiratory: No Symptoms Reported Cardiovascular: No Symptoms Reported Gastrointestinal: See HPI Genitourinary: No Symptoms Reported Musculoskeletal: no symptoms reported Skin: no symptoms reported Psychiatric/Neurological: No Symptoms Reported Endocrine: No Symptoms Reported Hematologic/Lymphatic: No Symptoms Reported Past Clhbmml-[id number]-Yevjzp Hx Past Med/Social Hx: Reviewed and Corrections made Patient Social History Alcohol Use: Rarely Uses Recreational Drug Use: No Smoking Status: Current Everyday Smoker Type Used: Cigarettes Former Smoker, Quit: Feb 07, 2016 2nd Hand Smoke Exposure: Yes Recent Foreign Travel: No Contact w/Someone Who Travel: No Recent Infectious Disease Expo: No Recent Hopitalizations: No Immunizations Up To Date Tetanus Booster (TDap): Unknown PED Vaccines UTD: Yes Seasonal Allergies Seasonal Allergies: Yes Past Medical History Surgeries: Yes (D&C) Abdominal, Orthopedic, Renal Respiratory: Yes Asthma Currently Using CPAP: No Currently Using BIPAP: No Cardiac: Yes Hypertension, Palpitations Neurological: Yes Headaches /Migraines, Neuropathy : No Reproductive Disorders: No Female Reproductive Disorders: Ovarian Cyst Sexually Transmitted Disease: No HIV/AIDS: No Genitourinary: Yes Kidney Stones, UTI-Chronic Gastrointestinal: Yes Gastroesophageal Reflux, Irritable Bowel Musculoskeletal: Yes Degenerate Disk Disease, Arthritis, Rheumatoid Arthritis, Chronic Back Pain Endocrine: Yes Diabetes, Non-Insulin dep HEENT: No Chronic Eye Infection Cancer: No Psychosocial: Yes Anxiety, PTSD, Depression Integumentary: Yes Eczema Blood Disorders: No Adverse Reaction/Blood Tranf: No Family Medical History Asthma DAUGHTER FH: stroke GRANDMOTHER 19 MOTHER Asthma, CVA Physical Exam Vital Signs Vital Signs - First Documented 04/02/19 00:49 Temp 98.1 Pulse 101 Resp 20 B/P (MAP) 161/117 (132) Pulse Ox 98 O2 Delivery Room Air Capillary Refill : Less Than 3 Seconds Height/Weight/BMI Height: 5'3.00" Weight: 190lbs. 0.0oz. 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, no motor/sensory deficits, alert, normal mood/affect, oriented x 3 Skin: normal color, warm/dry Progress/Results/Core Measures Results/Orders Lab Results Laboratory Tests Test 04/02/19 01:28 04/02/19 01:30 04/02/19 03:12 Range/Units Urine Color YELLOW Urine Clarity SLIGHTLY CLOUDY Urine pH 6.5 5-9 Urine Specific Fancy Gap 1.015 L 1.016-1.022 Urine Protein 2+ H NEGATIVE Urine Glucose (UA) 4+ H NEGATIVE Urine Ketones NEGATIVE NEGATIVE Urine Nitrite NEGATIVE NEGATIVE Urine Bilirubin NEGATIVE NEGATIVE Urine Urobilinogen NORMAL NORMAL MG/DL Urine Leukocyte Esterase NEGATIVE NEGATIVE Urine RBC (Auto) 5+ H NEGATIVE Urine RBC 50-100 H /HPF Urine WBC NONE /HPF Urine Squamous Epithelial Cells 0-2 /HPF Urine Crystals NONE /LPF Urine Bacteria TRACE /HPF Urine Casts NONE /LPF Urine Mucus NEGATIVE /LPF Urine Culture Indicated NO White Blood Count 11.0 4.3-11.0 10^3/uL Red Blood Count 5.27 4.35-5.85 10^6/uL Hemoglobin 15.9 11.5-16.0 G/DL Hematocrit 45 35-52 % Mean Corpuscular Volume 85 80-99 FL Mean Corpuscular Hemoglobin 30 25-34 PG Mean Corpuscular Hemoglobin Concent 36 32-36 G/DL Red Cell Distribution Width 13.2 10.0-14.5 % Platelet Count 313 130-400 10^3/uL Mean Platelet Volume 10.6 H 7.4-10.4 FL Neutrophils (%) (Auto) 53 42-75 % Lymphocytes (%) (Auto) 36 12-44 % Monocytes (%) (Auto) 9 0-12 % Eosinophils (%) (Auto) 2 0-10 % Basophils (%) (Auto) 1 0-10 % Neutrophils # (Auto) 5.8 1.8-7.8 X 10^3 Lymphocytes # (Auto) 3.9 1.0-4.0 X 10^3 Monocytes # (Auto) 1.0 0.0-1.0 X 10^3 Eosinophils # (Auto) 0.2 0.0-0.3 10^3/uL Basophils # (Auto) 0.1 0.0-0.1 10^3/uL Sodium Level 130 L 135-145 MMOL/L Potassium Level 4.4 3.6-5.0 MMOL/L Chloride Level 97 L 98-107 MMOL/L Carbon Dioxide Level 12 L 21-32 MMOL/L Anion Gap 21 H 5-14 MMOL/L Blood Urea Nitrogen 22 H 7-18 MG/DL Creatinine 1.11 0.60-1.30 MG/DL Estimat Glomerular Filtration Rate 55 BUN/Creatinine Ratio 20 Glucose Level 432 *H 70-105 MG/DL Calcium Level 10.0 8.5-10.1 MG/DL Corrected Calcium 9.8 8.5-10.1 MG/DL Total Bilirubin 0.4 0.1-1.0 MG/DL Aspartate Amino Transf (AST/SGOT) 16 5-34 U/L Alanine Aminotransferase (ALT/SGPT) 34 0-55 U/L Alkaline Phosphatase 116 40-136 U/L Total Protein 8.1 6.4-8.2 GM/DL Albumin 4.3 3.2-4.5 GM/DL Lipase 135 H 8-78 U/L Serum Test, Qualitative NEGATIVE NEGATIVE Glucometer 339 H 70-110 MG/DL My Orders Orders - ARLEEN COPELAND MD Ondansetron Oral Dissolve Tab (Zofran (04/02/19 01:00) Lidocaine 2% Viscous 15 Ml (Xylocaine Vi (04/02/19 01:00) Antacid Suspension (Mylanta Suspension (04/02/19 01:00) Famotidine Injection (Pepcid Injection) (04/02/19 01:30) Cbc With Automated Diff (04/02/19 01:26) Comprehensive Metabolic Panel (04/02/19 01:26) Hcg,Qualitative Serum (04/02/19 01:26) Lipase (04/02/19 01:26) Ua Culture If Indicated (04/02/19 01:26) Ed Iv/Invasive Line Start (04/02/19 01:26) Ns Iv 1000 Ml (Sodium Chloride 0.9%) (04/02/19 02:10) Accucheck Stat ONCE (04/02/19 02:13) Medications Given in ED Current Medications Medications Dose Ordered Sig/Sara Route Start Time Stop Time Status Last Admin Dose Admin Al Hydrox/Mg Hydrox/Simethicone 30 ml ONCE ONCE PO 04/02/19 01:00 04/02/19 01:01 DC 04/02/19 01:10 30 ML Famotidine 20 mg ONCE ONCE IVP 04/02/19 01:30 04/02/19 01:31 DC 04/02/19 01:37 20 MG Lidocaine HCl 15 ml ONCE ONCE PO 04/02/19 01:00 04/02/19 01:01 DC 04/02/19 01:10 15 ML Ondansetron HCl 8 mg ONCE ONCE SL 04/02/19 01:00 04/02/19 01:01 DC 04/02/19 01:10 8 MG Sodium Chloride 1,000 ml @ 0 mls/hr Q0M ONCE IV 04/02/19 02:10 04/02/19 02:11 DC 04/02/19 02:18 0 MLS/HR Vital Signs/I&O 04/02/19 00:49 Temp 98.1 Pulse 101 Resp 20 B/P (MAP) 161/117 (132) Pulse Ox 98 O2 Delivery Room Air Blood Pressure Mean: 132 Progress Progress Note #1: Time: 02:15 Progress Note Patient's pain is now minimal after GI cocktail and Pepcid. Labs were reviewed. She has significant hyperglycemia. Patient had a minimal elevation in lipase. A liter of IV fluid is infusing, and we will recheck her glucose after fluids are none. Progress Note #2: Time: 03:31 Progress Note Patient remained fairly comfortable through the rest of her ER stay. Her blood sugar dropped about 100 g with hydration alone. She was given a prescription order form for ultrasound later this morning. Close follow-up in the clinic was advised. Departure Impression Primary Impression: Upper abdominal pain Additional Impressions: Nausea Hyperglycemia Elevated lipase Disposition: 01 HOME, SELF-CARE Condition: Improved Departure-Patient Inst. Decision time for Depature: 03:20 Referrals: NO,LOCAL PHYSICIAN (PCP/Family) Primary Care Physician Patient Instructions: Acute Abdomen (Belly Pain), Adult (DC), Hyperglycemia, Adult Add. Discharge Instructions: Return to the hospital after 7:00 this morning for your ultrasound. Bring the ultrasound order form with you. Do not eat or drink until after your ultrasound was performed. Then consume only clear liquids for about 24 hours. After that you may gradually advance your diet with small quantities of bland food as tolerated. Eat a low sugar, low carbohydrate, low-fat (including oils) diet. Follow-up with a primary care provider soon as possible. You should have labs checked again within a week's time. Follow up in the emergency room if symptoms are worsening. Started an antacid such as omeprazole as prescribed. All discharge instructions reviewed with patient and/or family. Voiced understanding. Scripts Ondansetron (Ondansetron Odt) 4 Mg Tab.rapdis 4 MG SL Q4H PRN for NAUSEA/VOMITING, #10 TAB Prov: ARLEEN COPELAND MD 04/02/19 Omeprazole (Omeprazole) 20 Mg Tablet. 20 MG PO BID, #60 TAB Prov: ARLEEN COPELAND MD 04/02/19 Copy Copies To 1: CHRIS HELM JOSHUA T MD Apr 02, 2019 02:08
[2019-04-02] MEDS ORDERED: NS IV 1000 ML 1,000 ML IV ONE (02:10)
[2019-04-02] MEDS ORDERED: ONDA4TAB11 SL (03:22)
[2019-04-02] MEDS ORDERED: OMEP20TA7 PO (03:22)
[2019-04-02 03:30] VITALS: BP 143/88
== END 2019-04-02 03:32 | disposition home or self-care (01) ==
LOC: EDUNIT# 00:43 → ER 00:45
DX: R10.12 Left upper quadrant pain (principal); R11.0 Nausea; E11.65 Type 2 diabetes mellitus with hyperglycemia; R74.8 Abnormal levels of other serum enzymes; J45.909 Unspecified asthma, uncomplicated; I10 Essential (primary) hypertension; G43.909 Migraine, unspecified, not intractable, without status migrainosus; E11.40 Type 2 diabetes mellitus with diabetic neuropathy, unspecified; M06.9 Rheumatoid arthritis, unspecified; F41.9 Anxiety disorder, unspecified; F43.10 Post-traumatic stress disorder, unspecified; F32.9 Major depressive disorder, single episode, unspecified; Z87.440 Personal history of urinary (tract) infections; Z87.442 Personal history of urinary calculi; Z87.448 Personal history of other diseases of urinary system; Z88.1 Allergy status to other antibiotic agents; Z88.8 Allergy status to other drugs, medicaments and biological substances; Z88.2 Allergy status to sulfonamides; Z87.891 Personal history of nicotine dependence; Z98.890 Other specified postprocedural states
CPT/HCPCS: 36415; 80053; 81000; 82962; 83690; 84703; 85025; 96361; 96374

== ENCOUNTER → 2019-04-02 | Outpatient (CLI) | payer MEDICAID ==
[~2019-04-02] MED LIST changes: +BESI5DRO; +DOXY100T2
--- NOTE | 2019-04-02 13:30 | Diagnostic Imaging Report ---
PROCEDURE: US Gallbladder. TECHNIQUE: Multiple real-time grayscale images were obtained over the right upper quadrant in various projections. INDICATION: Abdominal pain COMPARISON: There are no prior ultrasound examinations available for comparison. Previous CT abdomen/pelvis exam of 12/07/2018 failed to show any sign of an acute abnormality of the right upper quadrant. The liver did appear to be enlarged however and the appearance of the liver did suggest fatty metamorphosis. On this exam, the liver is enlarged measuring 25 CM in length. The liver is also more echogenic than usually seen and this appearance does suggest fatty metamorphosis. There is no focal mass involving the liver and the biliary tree is not abnormally distended. Spectral and color flow imaging of the portal vein shows the vein to be patent and there is normal directional flow within the vein. There is no evidence for cholelithiasis or acute cholecystitis and the common bile duct is not dilated. The right kidney is generally unremarkable. The pancreas shows no definite abnormality although the tail was partially obscured by bowel gas. The proximal aorta and the inferior vena cava, where visualized, are unremarkable. IMPRESSION: 1. There is no acute abnormality in the right upper quadrant. 2. If clinical concern regarding an underlying abnormality of the gallbladder persists and further imaging is desired, a nuclear medicine hepatobiliary scan would be recommended. 3. The liver is enlarged and the low density appearance of the liver does suggest fatty metamorphosis. Dictated by: Dictated on workstation # [id number]
== END ==
LOC: RAD 11:35
PROVIDERS: ATTEND Family Medicine
DX: R16.0 Hepatomegaly, not elsewhere classified (principal); R11.0 Nausea; R10.10 Upper abdominal pain, unspecified
CPT/HCPCS: 76705

== ENCOUNTER 2019-05-25 22:34 | Emergency (ER) | payer MEDICAID ==
[~2019-05-25] VITALS: Ht 162.6 cm; Wt 89.8 kg
[~2019-05-25 22:34] MED LIST changes: +BESI5DRO; +DOXY100T2
[2019-05-25] MEDS ORDERED: ACETAMINOPHEN 500 MG TAB (TYLENOL) PO ONE (23:30)
[2019-05-25] MEDS ORDERED: KETOROLAC 30 MG/ML VIAL IM ONE (23:30)
[2019-05-25] MEDS ORDERED: diphenhydrAMINE 25 MG TAB (BENADRYL) PO ONE (23:30)
[2019-05-25] MEDS ORDERED: PROCHLORPERAZINE 10 MG/2ML INJ (COMPAZINE) IM ONE (23:30)
[2019-05-25] MEDS ORDERED: methylPREDNISolone 40 MG/ML (DEPO MEDROL) VIAL IM ONE (23:30)
[2019-05-25] MEDS ORDERED: ONDA4TAB11 PO (23:31)
[2019-05-25] MEDS ORDERED: RX-ONDANSETRON 4 MG ODT (ZOFRAN) PPK #4 PO STA (23:32)
--- NOTE | 2019-05-25 23:32 | ED Headache ---
General Chief Complaint: Head/Cervical Problems Stated Complaint: MIGRAINE Nursing Triage Note: Patient ambulatory to ER room 7 with eyes closed with spouse leading patient to room. Patient states she has had a migraine headache x 6 days with severe nausea. Patient denies any vomiting. Nursing Sepsis Screen: No Definite Risk Source: patient, family Exam Limitations: no limitations History of Present Illness Date Seen by Provider: May 25, 2019 Time Seen by Provider: 23:17 Initial Comments The patient presents to ER by private conveyance with her family and chief complaint of a day 5 of a global, throbbing migraine headache. She said her ears popping lately but she thinks is just allergies. No fevers chills. She does have nausea, photophobia, phonosensitivity. This is her usual migraine headache pattern. She used to be on triptan's but she says Dr. Alan switched her off of that in [place] and put her on Fioricet. She does not follow with primary care doctor for the past year. No other significant medical history. She been using ibuprofen but does not use Tylenol. She uses aspirin and has not had significant impact in her pain. Allergies and Home Medications Allergies Coded Allergies: levofloxacin (Unverified Allergy, Mild, 03/21/09) Quinolones (Verified Allergy, Unknown, 02/10/06) Sulfa (Sulfonamide Antibiotics) (Unverified Allergy, Unknown, 02/08/19) diclofenac (Verified Allergy, Unknown, 02/08/19) shellfish derived (Verified Allergy, Unknown, 05/27/15) Uncoded Allergies: CLINONE (Allergy, Mild, 03/21/09) chloraprep (Allergy, Unknown, 02/08/19) Patient Home Medication List Home Medication List Reviewed: Yes Review of Systems Review of Systems Constitutional: No chills, No fever, No malaise, No weakness Eyes: See HPI; Denies Blindness, Denies Blurred Vision Ears, Nose, Mouth, Throat: see HPI; denies ear pain, denies ear discharge Respiratory: No cough, No short of breath Cardiovascular: No chest pain, No edema Gastrointestinal: No abdominal pain; nausea, vomiting Past Jjojqdw-Lgcspl-Sbpdrm Hx Patient Social History Alcohol Use: Occasionally Uses Recreational Drug Use: No Smoking Status: Current Everyday Smoker Type Used: Cigarettes 2nd Hand Smoke Exposure: Yes Recent Foreign Travel: No Contact w/Someone Who Travel: No Recent Infectious Disease Expo: No Recent Hopitalizations: No Physical Abuse: No Sexual Abuse: No Mistreated: No Fear: No Immunizations Up To Date Tetanus Booster (TDap): Unknown PED Vaccines UTD: Yes Seasonal Allergies Seasonal Allergies: Yes Past Medical History Surgeries: Yes (D&C) Abdominal, Orthopedic, Renal Respiratory: Yes Asthma Currently Using CPAP: No Currently Using BIPAP: No Cardiac: Yes Hypertension, Palpitations Neurological: Yes Headaches /Migraines, Neuropathy Reproductive Disorders: No Female Reproductive Disorders: Ovarian Cyst Sexually Transmitted Disease: No HIV/AIDS: No Genitourinary: Yes Kidney Stones, UTI-Chronic Gastrointestinal: Yes Gastroesophageal Reflux, Irritable Bowel Musculoskeletal: Yes Degenerate Disk Disease, Arthritis, Rheumatoid Arthritis, Chronic Back Pain Endocrine: Yes Diabetes, Non-Insulin dep HEENT: No Chronic Eye Infection Cancer: No Psychosocial: Yes Anxiety, PTSD, Depression Integumentary: Yes Eczema Blood Disorders: No Adverse Reaction/Blood Tranf: No Family Medical History Asthma DAUGHTER FH: stroke GRANDMOTHER 19 MOTHER Asthma, CVA Physical Exam Vital Signs Vital Signs - First Documented 05/25/19 22:37 Temp 98.4 Pulse 89 Resp 22 B/P (MAP) 146/78 (100) Pulse Ox 96 O2 Delivery Room Air Capillary Refill : Less Than 3 Seconds Height, Weight, BMI Height: 5'4.00" Weight: 198lbs. 0.0oz. 89.144472pt; 35.9 BMI Method:Stated General Appearance: WD/WN, moderate distress HEENT: PERRL/EOMI, normal ENT inspection, TMs normal, pharynx normal Neck: full range of motion, normal inspection Cardiovascular: normal peripheral pulses, regular rate, rhythm Respiratory: no respiratory distress, no accessory muscle use Psychiatric: alert, oriented x 3 Crainal Nerves: normal hearing, normal speech Coordination/Gait: normal gait Motor/Sensory: no motor deficit, no sensory deficit Progress/Results/Core Measures Results/Orders My Orders Orders - DORINDA KINGSLEY Ketorolac Injection (Toradol Injection) (05/25/19 23:30) Acetaminophen Tablet (Tylenol Tablet) (05/25/19 23:30) Diphenhydramine Tablet (Benadryl Tablet) (05/25/19 23:30) Prochlorperazine Injection (Compazine In (05/25/19 23:30) Methylprednisolone Acetate Inj (Depo-Med (05/25/19 23:30) Vital Signs/I&O 05/25/19 22:37 Temp 98.4 Pulse 89 Resp 22 B/P (MAP) 146/78 (100) Pulse Ox 96 O2 Delivery Room Air Blood Pressure Mean: 100 Progress Progress Note : Time: 23:30 Progress Note 30 mg IM Toradol, 10 mg IM Compazine, Tylenol 1000 mg, Benadryl 50 mg, Depo- Medrol 40 mg IM. Allow her to go home get sleep encourage fluids. Departure Impression Primary Impression: Migraine Qualified Codes: G43.001 - Migraine without aura, not intractable, with status migrainosus Disposition: HOME, SELF-CARE Condition: Stable Departure-Patient Inst. Decision time for Depature: 23:31 Referrals: NO,LOCAL PHYSICIAN (PCP/Family) Primary Care Physician Patient Instructions: Migraine Headache (DC) Add. Discharge Instructions: If you have headache pain use 800 mg of ibuprofen every 8 hours in addition to 1000 mg of Tylenol every 8 hours. If you have nausea you can use one tablet of Zofran every 6 hours under the tongue. Drink plenty of fluids and get to sleep. All discharge instructions reviewed with patient and/or family. Voiced understanding. Scripts Ondansetron (Ondansetron Odt) 4 Mg Tab.rapdis 4 MG PO Q6H PRN for NAUSEA/VOMITING, #8 TAB 0 Refills Prov: DORINDA KINGSLEY 05/25/19 DORINDA KINGSLEY May 25, 2019 23:32
[2019-05-25 23:48] VITALS: BP 146/78
== END 2019-05-25 23:49 | disposition home or self-care (01) ==
LOC: EDUNIT# 22:34 → ER 22:36
DX: G43.909 Migraine, unspecified, not intractable, without status migrainosus (principal); J45.909 Unspecified asthma, uncomplicated; I10 Essential (primary) hypertension; E11.40 Type 2 diabetes mellitus with diabetic neuropathy, unspecified; K21.9 Gastro-esophageal reflux disease without esophagitis; K58.9 Irritable bowel syndrome, unspecified; M06.9 Rheumatoid arthritis, unspecified; F43.10 Post-traumatic stress disorder, unspecified; F32.9 Major depressive disorder, single episode, unspecified; F41.9 Anxiety disorder, unspecified; F17.210 Nicotine dependence, cigarettes, uncomplicated; Z87.440 Personal history of urinary (tract) infections; Z87.442 Personal history of urinary calculi; Z88.1 Allergy status to other antibiotic agents; Z88.8 Allergy status to other drugs, medicaments and biological substances; Z88.2 Allergy status to sulfonamides; Z88.5 Allergy status to narcotic agent
CPT/HCPCS: 99284

== ENCOUNTER 2019-07-08 18:12 | Emergency (ER) | payer MEDICAID ==
[~2019-07-08] VITALS: Ht 160 cm; Wt 86.0 kg
[~2019-07-08 18:12] MED LIST changes: +ONDA4TAB11 PO
[2019-07-08] MEDS ORDERED: DOXY100T2 PO (18:53)
--- NOTE | 2019-07-08 18:53 | ED Integumentary General ---
General Chief Complaint: Skin/Wound Problems Stated Complaint: POSSIBLE CYST UNDER ARMPIT Nursing Triage Note: ABSCESS LEFT ARM PIT X3 WEEKS THAT IS GETTING WORSE. Source: patient Exam Limitations: no limitations History of Present Illness Date Seen by Provider: Jul 08, 2019 Time Seen by Provider: 18:52 Initial Comments Abscess to left axilla for 3 weeks getting worse Timing/Duration: just prior to arrival Severity: moderate Location: extremities Associated Symptoms: denies symptoms Allergies and Home Medications Allergies Coded Allergies: levofloxacin (Unverified Allergy, Mild, 03/21/09) Quinolones (Verified Allergy, Unknown, 02/10/06) Sulfa (Sulfonamide Antibiotics) (Unverified Allergy, Unknown, 02/08/19) diclofenac (Verified Allergy, Unknown, 02/08/19) shellfish derived (Verified Allergy, Unknown, 05/27/15) Uncoded Allergies: CLINONE (Allergy, Mild, 03/21/09) chloraprep (Allergy, Unknown, 02/08/19) Home Medications Doxycycline Hyclate 100 Mg Tablet, 100 MG PO BID Prescribed by: AMOR BISHOP on 07/08/19 1853 Ondansetron 4 Mg Tab.rapdis, 4 MG PO Q6H PRN for NAUSEA/VOMITING Prescribed by: DORINDA KINGSLEY on 05/25/19 2331 Patient Home Medication List Home Medication List Reviewed: Yes Review of Systems Review of Systems Constitutional: see HPI EENTM: see HPI Respiratory: no symptoms reported Cardiovascular: no symptoms reported Genitourinary: no symptoms reported Skin: see HPI Psychiatric/Neurological: No Symptoms Reported Endocrine: No Symptoms Reported Past Bjfgzyx-Yrgijo-Chvyes Hx Patient Social History Alcohol Use: Rarely Uses Recreational Drug Use: No Smoking Status: Current Everyday Smoker Type Used: Cigarettes 2nd Hand Smoke Exposure: Yes Recent Foreign Travel: No Contact w/Someone Who Travel: No Recent Infectious Disease Expo: No Recent Hopitalizations: No Immunizations Up To Date Tetanus Booster (TDap): Unknown PED Vaccines UTD: Yes Seasonal Allergies Seasonal Allergies: Yes Past Medical History Surgeries: Yes (D&C) Abdominal, Orthopedic, Renal Respiratory: Yes Asthma Currently Using CPAP: No Currently Using BIPAP: No Cardiac: Yes Hypertension, Palpitations Neurological: Yes Headaches /Migraines, Neuropathy Reproductive Disorders: No Female Reproductive Disorders: Ovarian Cyst Sexually Transmitted Disease: No HIV/AIDS: No Genitourinary: Yes Kidney Stones, UTI-Chronic Gastrointestinal: Yes Gastroesophageal Reflux, Irritable Bowel Musculoskeletal: Yes Degenerate Disk Disease, Arthritis, Rheumatoid Arthritis, Chronic Back Pain Endocrine: Yes Diabetes, Non-Insulin dep HEENT: No Chronic Eye Infection Cancer: No Psychosocial: Yes Anxiety, PTSD, Depression Integumentary: Yes Eczema Blood Disorders: No Adverse Reaction/Blood Tranf: No Family Medical History Asthma DAUGHTER FH: stroke GRANDMOTHER 19 MOTHER Asthma, CVA Physical Exam Vital Signs Vital Signs - First Documented 07/08/19 18:25 Temp 37.1 Pulse 83 Resp 16 B/P (MAP) 170/95 (120) Pulse Ox 98 O2 Delivery Room Air Capillary Refill : Less Than 3 Seconds General Appearance: WD/WN, no apparent distress HEENT: PERRL/EOMI, normal ENT inspection Respiratory: no respiratory distress, no accessory muscle use Neurologic/Psychiatric: alert, normal mood/affect, oriented x 3 Skin: normal color, warm/dry Skin Problem Character: abscess, other (quarter sized area of induration with a very small papule overlying it left axilla without cellulitis) Procedures/Interventions I&D : Blade Size: 11 Progress Moderate amount of purulent material expressed a collected and sent to lab Progress/Results/Core Measures Results/Orders Vital Signs/I&O 07/08/19 18:25 Temp 37.1 Pulse 83 Resp 16 B/P (MAP) 170/95 (120) Pulse Ox 98 O2 Delivery Room Air Blood Pressure Mean: 120 Departure Impression Primary Impression: Abscess Disposition: 01 HOME, SELF-CARE Condition: Stable Departure-Patient Inst. Decision time for Depature: 18:52 Referrals: NO,LOCAL PHYSICIAN (PCP/Family) Primary Care Physician Patient Instructions: Skin Abscess Add. Discharge Instructions: Warm compresses to the area antibiotics as directed Tylenol and Motrin for pain control All discharge instructions reviewed with patient and/or family. Voiced understanding. Scripts Hydrocodone/Acetaminophen ([place] 5-325 Tablet) 1 Each Tablet 1 TAB PO Q6H for Pain MDD 10 TABS for 7 Days, #10 TAB Prov: AMOR BISHOP LIBRARY SALES CONSULTANT 07/08/19 Doxycycline Hyclate (Doxycycline Hyclate) 100 Mg Tablet 100 MG PO BID, #20 TAB 0 Refills Prov: AMOR BISHOP LIBRARY SALES CONSULTANT 07/08/19 AMOR BISHOP LIBRARY SALES CONSULTANT Jul 08, 2019 18:53
--- NOTE | 2019-07-08 18:56 | NUR ---
REPORT GIVEN TO ANA DAVIS.
[2019-07-08] MEDS ORDERED: HYDR-4226 PO (19:03)
[2019-07-08 19:25] VITALS: BP 170/95
== END 2019-07-08 19:25 | disposition home or self-care (01) ==
LOC: EDUNIT# 18:12 → ER 18:13
DX: L02.412 Cutaneous abscess of left axilla (principal); J45.909 Unspecified asthma, uncomplicated; I10 Essential (primary) hypertension; G43.909 Migraine, unspecified, not intractable, without status migrainosus; E11.40 Type 2 diabetes mellitus with diabetic neuropathy, unspecified; K21.9 Gastro-esophageal reflux disease without esophagitis; K58.9 Irritable bowel syndrome, unspecified; M06.9 Rheumatoid arthritis, unspecified; F41.9 Anxiety disorder, unspecified; F43.10 Post-traumatic stress disorder, unspecified; F32.9 Major depressive disorder, single episode, unspecified; F17.210 Nicotine dependence, cigarettes, uncomplicated; Z87.442 Personal history of urinary calculi; Z87.440 Personal history of urinary (tract) infections; Z88.1 Allergy status to other antibiotic agents; Z88.8 Allergy status to other drugs, medicaments and biological substances; Z88.2 Allergy status to sulfonamides; Z88.5 Allergy status to narcotic agent; Z91.018 Allergy to other foods
CPT/HCPCS: 87070; 87077; 87205

== ENCOUNTER 2019-07-12 22:46 | Emergency (ER) | payer MEDICAID ==
[~2019-07-12] VITALS: Ht 160 cm; Wt 86.3 kg
[~2019-07-12 22:46] MED LIST changes: +DOXY100T2 PO
[2019-07-12] MEDS ORDERED: LIDOCAINE/EPI 2% 1:100,00 (XYLOCAINE) 20 ML VIAL INJ ONE (23:15)
[2019-07-12] MEDS ORDERED: ACHD5005 PO (23:54)
--- NOTE | 2019-07-12 23:55 | ED Integumentary General ---
General Chief Complaint: Skin/Wound Problems Stated Complaint: ABSCESS Nursing Triage Note: Patient ambulatory to ER room 7 with family members with complaint of abscess to left axilla area. Patient states she was seen in ER last saturday and had it drained. She was placed on Doxycycline for the infection. She states it has been draining since then and today her son pushed and squeezed on it and found another area of swelling that she cannot drain. She has had increased pain with it and is out of the hydrocodone that was prescribed. Source: patient (DIFFICULT HISTORIAN) History of Present Illness Date Seen by Provider: Jul 12, 2019 Time Seen by Provider: 23:00 Initial Comments PT ARRIVES VIA POV FROM HOME C/O "BOIL" IN LEFT ARMPIT--STATES IT HAS BEEN PRESENT FOR AT LEAST 4 WEEKS, BUT HAS GOTTEN LARGER AND MORE PAINFUL SEEN IN THIS ER 07/08 FOR THIS PROBLEM AND HAD AREA INCISED/DRAINED, BUT NO PACKING PLACED. GIVEN RX FOR HYDROCODONE AND DOXYCYCLINE CULTURES GREW OUT MRSA, SENSITIVE TO MINOCYCLINE PT STATES IT HAS BEEN DRAINING A LITTLE, BUT TONIGHT IT "DRAINED ALOT" AND MALE FAMILY MEMBER SQUEEZED IT, AND NOTICED ANOTHER AREA NEXT TO IT. NO FEVER HAS HAD "BOILS" MULTIPLE TIMES --IN GROIN AND IN AXILLA, NEVER HAD TO HAVE ANY DRAINED. STATES SHE NORMALLY JUST "POPS" THEM HERSELF AND STATES "I QUIT WEARING UNDERWEAR AND I FIXED THE PROBLEM MYSELF" PT IS DIABETIC, WITH LONG HISTORY OF NONCOMPLIANCE IN ALL ASPECTS OF CARE. [facility], IN PROCESS OF ESTABLISHING WITH [facility] Allergies and Home Medications Allergies Coded Allergies: levofloxacin (Unverified Allergy, Mild, 03/21/09) Quinolones (Verified Allergy, Unknown, 02/10/06) Sulfa (Sulfonamide Antibiotics) (Unverified Allergy, Unknown, 02/08/19) diclofenac (Verified Allergy, Unknown, 02/08/19) shellfish derived (Verified Allergy, Unknown, 05/27/15) Uncoded Allergies: CLINONE (Allergy, Mild, 03/21/09) chloraprep (Allergy, Unknown, 02/08/19) Home Medications Doxycycline Hyclate 100 Mg Tablet, 100 MG PO BID Prescribed by: AMOR BISHOP on 07/08/19 5426 Hydrocodone Bit/Acetaminophen 1 Tab Tab, 1 EACH PO Q4H PRN for PAIN-MODERATE Prescribed by: JAIEM MUSTAFA on 07/12/19 2354 Hydrocodone/Acetaminophen 1 Each Tablet, 1 TAB PO Q6H Prescribed by: AMOR BISHOP on 07/08/19 1903 Ondansetron 4 Mg Tab.rapdis, 4 MG PO Q6H PRN for NAUSEA/VOMITING Prescribed by: DORINDA KINGSLEY on 05/25/19 2331 Patient Home Medication List Home Medication List Reviewed: Yes Review of Systems Review of Systems Constitutional: no symptoms reported Musculoskeletal: see HPI Skin: see HPI Psychiatric/Neurological: No Symptoms Reported Past Vrpnbxa-Oirbyh-Eypgsl Hx Past Med/Social Hx: Reviewed and Corrections made Patient Social History Alcohol Use: Occasionally Uses Recreational Drug Use: Yes (TESTED + FOR METH/ AMPHETAMINES, OPIATES, THC, ) Drug of Choice: UDS + FOR METH/ AMPHETAMINES, OPIATES, THC Smoking Status: Current Everyday Smoker (1 PPD) Type Used: Cigarettes (1 PPD) 2nd Hand Smoke Exposure: Yes Recent Foreign Travel: No Contact w/Someone Who Travel: No Recent Infectious Disease Expo: No Recent Hopitalizations: No Physical Abuse: No Sexual Abuse: No Mistreated: No Fear: No Immunizations Up To Date Tetanus Booster (TDap): Unknown PED Vaccines UTD: Yes Seasonal Allergies Seasonal Allergies: Yes Past Medical History Surgeries: Yes (D&C; ELBOW SURGERY ? 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 ULNAR NERVE SURGERY? ) Degenerate Disk Disease, Arthritis, Rheumatoid Arthritis, Chronic Back Pain Endocrine: Yes Diabetes, Non-Insulin dep HEENT: Yes (LEFT EYE REMOVED DUE TO SELF INFLICTED INJURY) Chronic Eye Infection Cancer: No Psychosocial: Yes Anxiety, PTSD, Depression Integumentary: Yes (MRSA) Eczema Blood Disorders: No Adverse Reaction/Blood Tranf: No Family Medical History Asthma DAUGHTER FH: stroke GRANDMOTHER 19 MOTHER Asthma, CVA Physical Exam Vital Signs Vital Signs - First Documented 07/12/19 22:51 Temp 36.6 Pulse 98 Resp 20 B/P (MAP) 124/82 (96) Pulse Ox 98 O2 Delivery Room Air Capillary Refill : Less Than 3 Seconds General Appearance: WD/WN, no apparent distress, other (VERY DRAMATIC, WAILING, "SOBBING"--NO TEARS, MARKEDLY EXAGGERATED PAIN RESPONSE. ) Cardiovascular: normal peripheral pulses, regular rate, rhythm Respiratory: normal breath sounds Extremities: normal range of motion, normal capillary refill Neurologic/Psychiatric: no motor/sensory deficits, alert, oriented x 3 Skin: normal color, warm/dry, tattoos/piercings, other (LEFT AXILLA--PREVIOUS I&D SITE NOTED, MILD AMOUNT OF SURROUNDING INDURATION, NO FLUCTUANCE. NO DRAINAGE FROM AREA, BUT SCANT AMOUNT OF PINK DRANING NOTED ON DRESSING, NO ERYTHEMA OR SKIN DISCOLORATION. NO STREAKS. ) Procedures/Interventions I&D : Site: LEFT AXILLA Blade Size: 11 I & D Procedure: betadine prep, sterile drapes applied, sterile dressing applied, gauze wick placed, Wound Packing Packing/Drain: Idoform 1/4 Progress AREA INJECTED WITH 2% LIDOCAINE + EPI CLEANSED WITH BETADINE INCISED WITH #11 BLADE, WITH SCANT AMOUNT OF PURULENT MATERIAL. CULTURE OBTAINED. PROBED TO BREAK UP LOCULATIONS IRRIGATED WITH STERILE SALINE PACKED WITH 1/4" IODOFORM GAUZE DRESSED WITH STERILE DRESSINGS PT TOLERATED FAIR Progress/Results/Core Measures Results/Orders My Orders Orders - JAIME MUSTAFA DO Lidocaine/Epi 2% 1:100,000 (Xylocaine/Ep (07/12/19 23:15) Hydrocodone/Apap 5/325 Tablet (Lortab 5 (07/13/19 00:00) Wound Culture (07/12/19 23:50) Wound Dressing-Ed (07/12/19 23:52) Medications Given in ED Current Medications Medications Dose Ordered Sig/Sara Route Start Time Stop Time Status Last Admin Dose Admin Acetaminophen/ Hydrocodone Bitart 1 tab ONCE ONCE PO 07/13/19 00:00 07/13/19 00:01 DC 07/13/19 00:06 1 TAB Lidocaine/ Epinephrine 20 ml ONCE ONCE INJ 07/12/19 23:15 07/12/19 23:16 DC 07/12/19 23:18 20 ML Vital Signs/I&O 07/12/19 07/13/19 22:51 00:15 Temp 36.6 36.6 Pulse 98 77 Resp 20 16 B/P (MAP) 124/82 (96) 155/87 Pulse Ox 98 97 O2 Delivery Room Air Room Air Blood Pressure Mean: 96 Departure Impression Primary Impression: Abscess of left axilla Additional Impression: MRSA (methicillin resistant staph aureus) culture positive Disposition: HOME, SELF-CARE Condition: Stable Departure-Patient Inst. Referrals: NO,LOCAL PHYSICIAN (PCP) Primary Care Physician TUCKER Patient Instructions: MRSA (DC), Abscess Incision and Drainage (DC) Add. Discharge Instructions: LEAVE DRESSING IN PLACE, APPLY ADDITIONAL DRESSINGS ON TOP OF CURRENT DRESSING IF WOUND BLEEDS OR DRAINS THROUGH CURRENT DRESSING CONTINUE DOXYCYCLINE PRESCRIBED IBUPROFEN 800 MG 4 TIMES A DAY FOR PAIN FOLLOW UP WITH LAURIE-TOY OR DR OF CHOICE IN 2 DAYS FOR WOUND RECHECK AND REPACKING All discharge instructions reviewed with patient and/or family. Voiced understanding. Scripts Hydrocodone Bit/Acetaminophen (Hydrocodone/Acetaminophen 5/325mg Tablet) 1 Tab Tab 1 EACH PO Q4H PRN for PAIN-MODERATE MDD 10 for 3 Days, #10 TAB Prov: JAIME MUSTAFA DO 07/12/19 JAIME MUSTAFA DO Jul 12, 2019 23:55
[2019-07-13] MEDS ORDERED: HYDROcodone/APAP 5 MG/325 MG (LORTAB) TAB PO ONE
--- NOTE | 2019-07-13 00:08 | NUR ---
Dressing applied to left axilla. Telfa applied, 4 x4's to wound and secured with tape. Patient verbalized comfort.
[2019-07-13 00:15] VITALS: BP 155/87
== END 2019-07-13 00:17 | disposition home or self-care (01) ==
LOC: EDUNIT# 22:46 → ER 22:47
DX: L02.412 Cutaneous abscess of left axilla (principal); B95.62 Methicillin resistant Staphylococcus aureus infection as the cause of diseases classified elsewhere; E11.40 Type 2 diabetes mellitus with diabetic neuropathy, unspecified; I10 Essential (primary) hypertension; J45.909 Unspecified asthma, uncomplicated; G43.909 Migraine, unspecified, not intractable, without status migrainosus; F43.10 Post-traumatic stress disorder, unspecified; F41.9 Anxiety disorder, unspecified; F32.9 Major depressive disorder, single episode, unspecified; K21.9 Gastro-esophageal reflux disease without esophagitis; K58.9 Irritable bowel syndrome, unspecified; M06.9 Rheumatoid arthritis, unspecified; F17.210 Nicotine dependence, cigarettes, uncomplicated; Z98.51 Tubal ligation status; Z87.440 Personal history of urinary (tract) infections; Z87.442 Personal history of urinary calculi; Z88.1 Allergy status to other antibiotic agents; Z88.2 Allergy status to sulfonamides; Z88.8 Allergy status to other drugs, medicaments and biological substances; Z82.49 Family history of ischemic heart disease and other diseases of the circulatory system
CPT/HCPCS: 87070; 87077; 87186; 87205; 99283

== ENCOUNTER 2019-10-12 21:52 | Emergency (ER) | payer MEDICAID ==
[~2019-10-12] VITALS: Ht 160 cm; Wt 86.0 kg
[2019-10-12 23:36] LABS: BILIRUBIN,URINE NEGATIVE (NEGATIVE); CLARITY,URINE CLEAR; COLOR,URINE YELLOW; GLUCOSE, URINE (UA) 3+ (NEGATIVE); KETONES,URINE TRACE (NEGATIVE); LEUKOCYTE ESTERASE ,URINE NEGATIVE (NEGATIVE); NITRITE,URINE NEGATIVE (NEGATIVE); PROTEIN,URINE TRACE (NEGATIVE)
[2019-10-12 23:50] LABS: BACTERIA,URINE FEW /HPF
[2019-10-13] MEDS ORDERED: KETOROLAC 60 MG/2 ML VIAL IM ONE (00:45)
[2019-10-13] MEDS ORDERED: ORPHENADRINE 60 MG/2 ML (NORFLEX) AMP IM ONE (00:45)
[2019-10-13] MEDS ORDERED: diphenhydrAMINE 50 MG/ML INJ (BENADRYL) IM ONE (00:45)
[2019-10-13] MEDS ORDERED: TRAM-42 PO (00:48)
--- NOTE | 2019-10-13 00:49 | ED Back Pain ---
General Chief Complaint: Back Problems Stated Complaint: LOWER BACK PAIN Nursing Triage Note: Patient complaint of low back pain that she believes was from overdoing house work approximately one week ago. Patient states pain has become progressively worse and that she has been bed ridden. Nursing Sepsis Screen: No Definite Risk Allergies and Home Medications Allergies Coded Allergies: levofloxacin (Unverified Allergy, Mild, 03/21/09) Quinolones (Verified Allergy, Unknown, 02/10/06) Sulfa (Sulfonamide Antibiotics) (Unverified Allergy, Unknown, 02/08/19) diclofenac (Verified Allergy, Unknown, 02/08/19) shellfish derived (Verified Allergy, Unknown, 05/27/15) Uncoded Allergies: CLINONE (Allergy, Mild, 03/21/09) chloraprep (Allergy, Unknown, 02/08/19) Home Medications Doxycycline Hyclate 100 Mg Tablet, 100 MG PO BID Prescribed by: AMOR BISHOP on 07/08/19 1853 Hydrocodone Bit/Acetaminophen 1 Tab Tab, 1 EACH PO Q4H PRN for PAIN-MODERATE Prescribed by: JAIME MUSTAFA on 07/12/19 2354 Hydrocodone/Acetaminophen 1 Each Tablet, 1 TAB PO Q6H Prescribed by: AMOR BISHOP on 07/08/19 1903 Ondansetron 4 Mg Tab.rapdis, 4 MG PO Q6H PRN for NAUSEA/VOMITING Prescribed by: DORINDA KINGSLEY on 05/25/19 2331 Past Hwduuip-Yrwyjj-Girbzx Hx Patient Social History Alcohol Use: Occasionally Uses Recreational Drug Use: No Drug of Choice: UDS + FOR METH/ AMPHETAMINES, OPIATES, THC Type Used: Cigarettes Former Smoker, Quit: Feb 07, 2016 2nd Hand Smoke Exposure: Yes Recent Foreign Travel: No Contact w/Someone Who Travel: No Recent Infectious Disease Expo: No Recent Hopitalizations: No Immunizations Up To Date Tetanus Booster (TDap): Unknown PED Vaccines UTD: Yes Seasonal Allergies Seasonal Allergies: Yes Past Medical History Surgeries: Yes Abdominal, Gallbladder, Orthopedic, Renal, Tubal Ligation Respiratory: Yes Asthma Currently Using CPAP: No Currently Using BIPAP: No Cardiac: Yes Hypertension, Palpitations Neurological: Yes Headaches /Migraines, Neuropathy Reproductive Disorders: No Female Reproductive Disorders: Ovarian Cyst 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 ULNAR NERVE DEB NILS? ) Degenerate Disk Disease, Arthritis, Rheumatoid Arthritis, Chronic Back Pain Endocrine: Yes Diabetes, Non-Insulin dep HEENT: Yes (LEFT EYE REMOVED DUE TO SELF INFLICTED INJURY) Chronic Eye Infection Cancer: No Psychosocial: Yes Anxiety, PTSD, Depression Integumentary: Yes (MRSA) Eczema Blood Disorders: No Adverse Reaction/Blood Tranf: No Family Medical History Asthma DAUGHTER FH: stroke GRANDMOTHER 19 MOTHER Asthma, CVA Physical Exam Vital Signs Vital Signs - First Documented 10/12/19 22:34 Temp 36.5 Pulse 83 Resp 14 B/P (MAP) 123/80 (94) Pulse Ox 97 O2 Delivery Room Air Capillary Refill : Less Than 3 Seconds Height, Weight, BMI Height: 5'4.00" Weight: 198lbs. 0.0oz. 89.691213ii; 33.00 BMI Method:Stated Progress/Results/Core Measures Results/Orders Lab Results Laboratory Tests Test 10/12/19 23:30 Range/Units Urine Color YELLOW Urine Clarity CLEAR Urine pH 6.0 5-9 Urine Specific Girdler 1.025 H 1.016-1.022 Urine Protein TRACE NEGATIVE Urine Glucose (UA) 3+ H NEGATIVE Urine Ketones TRACE H NEGATIVE Urine Nitrite NEGATIVE NEGATIVE Urine Bilirubin NEGATIVE NEGATIVE Urine Urobilinogen 0.2 < = 1.0 MG/DL Urine Leukocyte Esterase NEGATIVE NEGATIVE Urine RBC (Auto) NEGATIVE NEGATIVE Urine RBC NONE /HPF Urine WBC NONE /HPF Urine Squamous Epithelial Cells 5-10 /HPF Urine Crystals NONE /LPF Urine Bacteria FEW H /HPF Urine Casts NONE /LPF Urine Mucus NEGATIVE /LPF Urine Other /HPF Urine Culture Indicated NO My Orders Orders - JAIME MUSTAFA DO Urine Bedside (10/12/19 23:05) Ua Culture If Indicated (10/12/19 23:05) Drug Screen Stat (Urine) (10/13/19 00:43) Orphenadrine Injection (Norflex Injectio (10/13/19 00:45) Ketorolac Injection (Toradol Injection) (10/13/19 00:45) Diphenhydramine Injection (Benadryl Inje (10/13/19 00:45) Vital Signs/I&O 10/12/19 22:34 Temp 36.5 Pulse 83 Resp 14 B/P (MAP) 123/80 (94) Pulse Ox 97 O2 Delivery Room Air Blood Pressure Mean: 94 Departure Impression Primary Impression: Chronic back pain Disposition: 01 HOME, SELF-CARE Condition: Stable Departure-Patient Inst. Referrals: NO,LOCAL PHYSICIAN (PCP/Family) Primary Care Physician Patient Instructions: MANAGING YOUR CHRONIC PAIN, Low Back Pain (DC) Add. Discharge Instructions: MOIST HEAT TO SORE AREA AT 20 MINUTE INTERVALS NO LIFTING OVER 5 LBS, NO TWISTING OR BENDING AT WAIST. CONTINUE YOUR MEDICATIONS PRESCRIBED--TAKE YOUR IBUPROFEN 800 MG 4 TIMES A DAY, AND YOUR METHOCARBAMOL 3 TIMES A DAY FOLLOW UP WITH [facility] THIS WEEK FOR FURTHER CARE All discharge instructions reviewed with patient and/or family. Voiced under standing. Scripts Tramadol HCl (Ultram) 50 Mg Tablet 50 MG PO Q4H PRN for PAIN-MODERATE for 3 Days, #20 TAB Prov: JAIME MUSTAFA DO 10/13/19 JAIME MUSTAFA DO Oct 13, 2019 00:48
[2019-10-13 01:05] VITALS: BP 120/76
[2019-10-13 01:05] LABS: AMPHETAMINE SCREEN, URINE NEGATIVE (NEGATIVE); BARBITURATE SCREEN URINE NEGATIVE (NEGATIVE); BENZODIAZEPINES SCREEN URINE NEGATIVE (NEGATIVE); CANNABINOID SCREEN, URINE NEGATIVE (NEGATIVE); COCAINE SCREEN URINE NEGATIVE (NEGATIVE); METHADONE STAT NEGATIVE (NEGATIVE); METHAMPHETAMINE SCREEN URINE S NEGATIVE (NEGATIVE); OPIATE SCREEN URINE NEGATIVE (NEGATIVE); OXYCODONE STAT NEGATIVE (NEGATIVE); PROPOXYPHENE STAT NEGATIVE (NEGATIVE); TRICYCLIC ANTIDEPRESSANTS SCRE NEGATIVE (NEGATIVE)
== END 2019-10-13 01:06 | disposition home or self-care (01) ==
LOC: EDUNIT# 21:52 → ER 21:53
DX: G89.29 Other chronic pain (principal); M54.5 Low back pain; J45.909 Unspecified asthma, uncomplicated; I10 Essential (primary) hypertension; E11.40 Type 2 diabetes mellitus with diabetic neuropathy, unspecified; F41.9 Anxiety disorder, unspecified; F43.10 Post-traumatic stress disorder, unspecified; F32.9 Major depressive disorder, single episode, unspecified; G43.909 Migraine, unspecified, not intractable, without status migrainosus; K21.9 Gastro-esophageal reflux disease without esophagitis; K58.9 Irritable bowel syndrome, unspecified; M06.9 Rheumatoid arthritis, unspecified; Z87.442 Personal history of urinary calculi; Z88.1 Allergy status to other antibiotic agents; Z88.2 Allergy status to sulfonamides; Z88.8 Allergy status to other drugs, medicaments and biological substances; Z88.6 Allergy status to analgesic agent; Z77.22 Contact with and (suspected) exposure to environmental tobacco smoke (acute) (chronic); Z87.891 Personal history of nicotine dependence; Z98.51 Tubal ligation status
CPT/HCPCS: 80306; 81000; 84703; 96372; 99284

== ENCOUNTER → 2020-06-29 | Outpatient (CLI) | payer MEDICAID ==
[~2020-06-29] MED LIST changes: +ACHYD1T PO; +FENO145T26 PO; -FENO145T37 PO; -GLIM2TAB PO; +GLIM2TAB4 PO; -GLIM4TAB PO; +GLIM4TAB5 PO; -HYDR-3820 PO; -MORP-33 PO; +MORP-68 PO; +TRAM-42 PO; -VALA1000 PO; +VALA10007 PO
[2020-06-29 13:02] LABS: ALANINE AMINOTRANSFERASE 21 U/L (0-55); ALBUMIN 4.1 GM/DL (3.2-4.5); ALKALINE PHOSPHATASE 89 U/L (40-136); BILIRUBIN,TOTAL 0.4 MG/DL (0.1-1.0); BUN/CREATININE RATIO 14; CALCIUM 9.2 MG/DL (8.5-10.1); CARBON DIOXIDE 18 MMOL/L (21-32); CHLORIDE 103 MMOL/L (98-107); CHOLESTEROL 269 MG/DL (< 200); CREATININE SERUM 0.99 MG/DL (0.60-1.30); GFR ESTIMATED > 60; GLUCOSE 177 MG/DL (70-105); HDL CHOLESTEROL 34 MG/DL (40-60); POTASSIUM 3.8 MMOL/L (3.6-5.0); SODIUM 134 MMOL/L (135-145); TOTAL PROTEIN 7.5 GM/DL (6.4-8.2); TRIGLYCERIDES 1180 MG/DL (<150)
== END ==
LOC: LAB 12:24
PROVIDERS: ATTEND Internal Medicine Cardiovascular Disease
DX: I08.1 Rheumatic disorders of both mitral and tricuspid valves (principal); R00.2 Palpitations
CPT/HCPCS: 36415; 80053; 80061

== ENCOUNTER → 2020-06-29 | Outpatient (CLI) | payer MEDICAID ==
--- NOTE | 2020-06-29 16:09 | Diagnostic Imaging Report ---
PROCEDURE: MRI right joint lower extremity without contrast. TECHNIQUE: Multiplanar, multisequence non contrast-enhanced MRI of the right lower extremity was accomplished. INDICATION: Right knee pain. Old knee injury. EXAMINATION: MRI of the right knee without contrast dated 06/29/2020 FINDINGS: The extensor mechanism, ACL and PCL appear intact. The lateral collateral ligamentous complex and the MCL intact. There is myxoid degeneration throughout the posterior horn of the medial meniscus with a discrete tear not appreciated. The lateral meniscus is intact. There is no significant cartilaginous loss within the medial or lateral joint spaces. There is moderate loss of cartilage overlying the patella especially torsi patellar apex. No significant joint effusion is appreciated. No acute osseous abnormality seen. IMPRESSION: 1. Ligaments and tendons intact. Menisci unremarkable. 2. Total femoral osteoarthritic changes. Dictated by: Dictated on workstation # [id number]
== END ==
LOC: RAD 13:15
PROVIDERS: ATTEND Nurse Practitioner
DX: M23.231 Derangement of other medial meniscus due to old tear or injury, right knee (principal); M22.41 Chondromalacia patellae, right knee; M22.42 Chondromalacia patellae, left knee; M17.11 Unilateral primary osteoarthritis, right knee
CPT/HCPCS: 73721

== ENCOUNTER 2020-07-10 23:38 | Emergency (ER) | payer MEDICAID ==
[~2020-07-10] VITALS: Ht 160 cm; Wt 95.0 kg
[2020-07-11] MEDS ORDERED: NS IV 1000 ML 1,000 ML IV ONE (00:39)
[2020-07-11] MEDS ORDERED: KETOROLAC 30 MG/ML VIAL IVP STA (00:39)
[2020-07-11] MEDS ORDERED: LORazepam INJ 2 MG/ML (ATIVAN) VIAL IVP ONE (00:45)
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
[2020-07-11] MEDS ORDERED: inSUlin (REGULAR) HUMAN 1 UNIT/0.01 ML (CHARGE PER UNIT) IV STA (01:11)
[2020-07-11] MEDS ORDERED: fentaNYL INJECTION 100 MCG/2 ML AMP IVP STA (01:11)
[2020-07-11 01:23] LABS: BASOPHILS % (AUTO) 0 % (0-10); EOSINOPHILS # (AUTO) 0.1 10^3/uL (0.0-0.3); EOSINOPHILS % (AUTO) 1 % (0-10); HEMATOCRIT 42 % (35-52); HEMOGLOBIN 14.5 G/DL (11.5-16.0); LYMPHOCYTES # (AUTO) 2.6 X 10^3 (1.0-4.0); LYMPHOCYTES % (AUTO) 14 % (12-44); MEAN CORPUSCULAR HEMOGLOBIN 30 PG (25-34); MEAN CORPUSCULAR HGB CONC 35 G/DL (32-36); MEAN CORPUSCULAR VOLUME 85 FL (80-99); MEAN PLATELET VOLUME 10.7 FL (7.4-10.4); MONOCYTES # (AUTO) 0.9 X 10^3 (0.0-1.0); MONOCYTES % (AUTO) 5 % (0-12); NEUTROPHILS # (AUTO) 15.7 X 10^3 (1.8-7.8); NEUTROPHILS % (AUTO) 81 % (42-75); PLATELET COUNT 251 10^3/uL (130-400); WHITE BLOOD COUNT 19.4 10^3/uL (4.3-11.0)
[2020-07-11 01:32] LABS: ALBUMIN 3.9 GM/DL (3.2-4.5); POTASSIUM 3.5 MMOL/L (3.6-5.0)
[2020-07-11 01:33] LABS: CALCIUM 9.2 MG/DL (8.5-10.1)
[2020-07-11 01:34] LABS: TOTAL PROTEIN 7.6 GM/DL (6.4-8.2)
[2020-07-11 01:36] LABS: BILIRUBIN,TOTAL 0.3 MG/DL (0.1-1.0)
[2020-07-11 01:38] LABS: CREATININE SERUM 1.02 MG/DL (0.60-1.30)
[2020-07-11] MEDS ORDERED: cefTRIAXone FOR IV USE 1,000 MG in WATER (STERILE) FOR INJECTION 10 ML IV STA (01:38)
[2020-07-11] MEDS ORDERED: CLINDAMYCIN 150 MG (CLEOCIN) CAP PO STA (01:38)
[2020-07-11] MEDS ORDERED: RX-MUPIROCIN (BACTROBAN) 2% OINT 22 GM TUBE TOP STA (01:41)
[2020-07-11 01:47] LABS: BAND NEUTROPHILS 1 %; LYMPHOCYTES % (MANUAL) 10 %; MONOCYTES % (MANUAL) 4 %; NEUTROPHILS % (MANUAL) 85 %; RBC MORPH NORMAL
[2020-07-11] MEDS ORDERED: CLIN300C11 PO (02:19)
[2020-07-11 02:26] VITALS: BP 120/88
== END 2020-07-11 02:25 | disposition home or self-care (01) ==
LOC: EDUNIT# 23:38 → ER 23:40
DX: N76.4 Abscess of vulva (principal); L73.9 Follicular disorder, unspecified; E11.40 Type 2 diabetes mellitus with diabetic neuropathy, unspecified; I10 Essential (primary) hypertension; G43.909 Migraine, unspecified, not intractable, without status migrainosus; G89.29 Other chronic pain; M54.9 Dorsalgia, unspecified; F17.210 Nicotine dependence, cigarettes, uncomplicated; Z88.1 Allergy status to other antibiotic agents; Z88.2 Allergy status to sulfonamides; Z88.8 Allergy status to other drugs, medicaments and biological substances; Z79.891 Long term (current) use of opiate analgesic
CPT/HCPCS: 36415; 80053; 82962; 85007; 85027; 86141

== ENCOUNTER → 2020-07-15 | Outpatient (CLI) | payer MEDICAID ==
[~2020-07-15] MED LIST changes: +CLIN300C11 PO
== END ==
LOC: CARD 14:00
PROVIDERS: ATTEND Internal Medicine Cardiovascular Disease
DX: I08.1 Rheumatic disorders of both mitral and tricuspid valves (principal); R00.2 Palpitations
CPT/HCPCS: 93306

== ENCOUNTER 2021-01-02 13:30 | Outpatient (RCR) | payer MEDICAID ==
[~2021-01-02 13:30] MED LIST changes: -CLIN300C11 PO; +CLIN300C12 PO; -LISI-556 PO; +LISI-729 PO; +METH-731 PO; +METH-732 PO; -METH500T7 PO; -METH750T3 PO; -NABU500T PO; +NABU500T8 PO
== END 2021-04-02 | disposition home or self-care (01) ==
LOC: CARD 13:30
PROVIDERS: ATTEND Physician Assistant
DX: R00.1 Bradycardia, unspecified (principal); R00.2 Palpitations
CPT/HCPCS: 93270

== ENCOUNTER 2021-07-01 13:09 | Emergency (ER) | payer MEDICAID ==
[~2021-07-01] VITALS: Ht 160 cm; Wt 90.7 kg
[~2021-07-01 13:09] MED LIST changes: -SULF1TAB35 PO; +SULF1TAB38 PO
[2021-07-01] MEDS ORDERED: KETOROLAC 30 MG/ML VIAL IVP ONE (13:45)
[2021-07-01] MEDS ORDERED: ONDANSETRON 4 MG/2 ML (SDV) Z0FRAN IVP ONE (13:45)
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
[2021-07-01 13:46] LABS: BASOPHILS # (AUTO) 0.1 10^3/uL (0.0-0.1); BASOPHILS % (AUTO) 0 % (0-10); EOSINOPHILS # (AUTO) 0.1 10^3/uL (0.0-0.3); EOSINOPHILS % (AUTO) 1 % (0-10); HEMATOCRIT 49 % (35-52); HEMOGLOBIN 15.7 g/dL (11.5-16.0); LYMPHOCYTES # (AUTO) 2.8 10^3/uL (1.0-4.0); LYMPHOCYTES % (AUTO) 21 % (12-44); MEAN CORPUSCULAR HEMOGLOBIN 29 pg (25-34); MEAN CORPUSCULAR HGB CONC 32 g/dL (32-36); MEAN CORPUSCULAR VOLUME 90 fL (80-99); MEAN PLATELET VOLUME 10.1 fL (9.0-12.2); MONOCYTES # (AUTO) 0.7 10^3/uL (0.0-1.0); MONOCYTES % (AUTO) 5 % (0-12); NEUTROPHILS # (AUTO) 9.9 10^3/uL (1.8-7.8); NEUTROPHILS % (AUTO) 73 % (42-75); PLATELET COUNT 275 10^3/uL (130-400); WHITE BLOOD COUNT 13.5 10^3/uL (4.3-11.0)
[2021-07-01 14:00] LABS: ALBUMIN 4.5 GM/DL (3.2-4.5)
[2021-07-01] MEDS ORDERED: NS IV 1000 ML 1,000 ML IV ONE (14:00)
[2021-07-01 14:01] LABS: POTASSIUM 4.1 MMOL/L (3.6-5.0)
[2021-07-01 14:02] LABS: CALCIUM 10.7 MG/DL (8.5-10.1)
[2021-07-01 14:03] LABS: TOTAL PROTEIN 7.9 GM/DL (6.4-8.2)
[2021-07-01 14:05] LABS: BILIRUBIN,TOTAL 0.8 MG/DL (0.1-1.0)
[2021-07-01 14:07] LABS: CREATININE SERUM 0.96 MG/DL (0.60-1.30)
[2021-07-01] MEDS ORDERED: PROMETHAZINE INJ 25 MG/ML (PHENERGAN) AMP IVP ONE (14:30)
[2021-07-01] MEDS ORDERED: PROM25TA14 PO (14:58)
[2021-07-01 15:45] VITALS: BP 148/70
== END 2021-07-01 15:45 | disposition home or self-care (01) ==
LOC: EDUNIT# 13:09 → ER 13:11
DX: K52.9 Noninfective gastroenteritis and colitis, unspecified (principal); J45.909 Unspecified asthma, uncomplicated; I10 Essential (primary) hypertension; E11.9 Type 2 diabetes mellitus without complications; G89.29 Other chronic pain; M54.9 Dorsalgia, unspecified; Z86.14 Personal history of Methicillin resistant Staphylococcus aureus infection; Z79.891 Long term (current) use of opiate analgesic; Z79.899 Other long term (current) drug therapy
CPT/HCPCS: 36415; 80053; 83690; 84145; 85025; 86141

== ENCOUNTER 2021-07-29 17:46 | Emergency (ER) | payer MEDICAID ==
[~2021-07-29] VITALS: Ht 167.7 cm; Wt 100.0 kg
[~2021-07-29 17:46] MED LIST changes: +PROM25TA14 PO
[2021-07-29 17:59] VITALS: BP 130/77
[2021-07-29] MEDS ORDERED: FAMOTIDINE 20MG/2ML IV (PEPCID) IV STA (18:08)
[2021-07-29] MEDS ORDERED: LIDOCAINE 2% VISCOUS 15 ML UDC PO ONE (18:15)
[2021-07-29] MEDS ORDERED: LACTATED RINGERS 1,000 ML IV ONE (18:15)
[2021-07-29] MEDS ORDERED: ONDANSETRON 4 MG/2 ML (SDV) Z0FRAN IVP ONE (18:15)
[2021-07-29] MEDS ORDERED: ANTACID SUSP 30 ML UDC (MYLANTA) PO ONE (18:15)
[2021-07-29] MEDS ORDERED: ONDA4TAB11 PO (18:16)
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
[2021-07-29 18:48] LABS: BASOPHILS # (AUTO) 0.1 10^3/uL (0.0-0.1); BASOPHILS % (AUTO) 1 % (0-10); EOSINOPHILS # (AUTO) 0.1 10^3/uL (0.0-0.3); EOSINOPHILS % (AUTO) 0 % (0-10); HEMATOCRIT 46 % (35-52); HEMOGLOBIN 15.4 g/dL (11.5-16.0); LYMPHOCYTES # (AUTO) 3.3 10^3/uL (1.0-4.0); LYMPHOCYTES % (AUTO) 24 % (12-44); MEAN CORPUSCULAR HEMOGLOBIN 29 pg (25-34); MEAN CORPUSCULAR HGB CONC 34 g/dL (32-36); MEAN CORPUSCULAR VOLUME 88 fL (80-99); MEAN PLATELET VOLUME 10.2 fL (9.0-12.2); MONOCYTES % (AUTO) 7 % (0-12); NEUTROPHILS # (AUTO) 9.2 10^3/uL (1.8-7.8); NEUTROPHILS % (AUTO) 67 % (42-75); PLATELET COUNT 294 10^3/uL (130-400); WHITE BLOOD COUNT 13.6 10^3/uL (4.3-11.0)
[2021-07-29 18:59] LABS: ALBUMIN 4.5 GM/DL (3.2-4.5); CHLORIDE 107 MMOL/L (98-107); POTASSIUM 3.7 MMOL/L (3.6-5.0); SODIUM 143 MMOL/L (135-145)
[2021-07-29 19:00] LABS: CALCIUM 10.1 MG/DL (8.5-10.1)
[2021-07-29 19:01] LABS: GLUCOSE 122 MG/DL (70-105); TOTAL PROTEIN 7.7 GM/DL (6.4-8.2)
[2021-07-29 19:02] LABS: CARBON DIOXIDE 17 MMOL/L (21-32)
[2021-07-29 19:03] LABS: BILIRUBIN,TOTAL 0.6 MG/DL (0.1-1.0)
[2021-07-29 19:05] LABS: ALKALINE PHOSPHATASE 88 U/L (40-136); CREATININE SERUM 1.51 MG/DL (0.60-1.30); GFR ESTIMATED 38
[2021-07-29 19:06] LABS: BUN/CREATININE RATIO 15
[2021-07-29 19:08] LABS: ALANINE AMINOTRANSFERASE 45 U/L (0-55); CREATINE KINASE 757 U/L (29-168); LIPASE 17 U/L (8-78)
== END 2021-07-29 18:56 | disposition left against medical advice (07) ==
LOC: EDUNIT# 17:46 → ER 17:48
DX: R11.2 Nausea with vomiting, unspecified (principal); J45.909 Unspecified asthma, uncomplicated; I10 Essential (primary) hypertension; G89.29 Other chronic pain; M54.9 Dorsalgia, unspecified; E11.9 Type 2 diabetes mellitus without complications; Z79.891 Long term (current) use of opiate analgesic
CPT/HCPCS: 80053; 82550; 83690; 84703; 85025; 99284; G0480; 36415; 80320

== ENCOUNTER 2021-08-17 14:46 | Emergency (ER) | payer MEDICAID ==
[~2021-08-17] VITALS: Ht 160 cm; Wt 90.7 kg
[~2021-08-17 14:46] MED LIST changes: +CLIN-144 PO; -CLIN300C12 PO
[2021-08-17] MEDS ORDERED: KETOROLAC 30 MG/ML VIAL IVP ONE (15:45)
[2021-08-17] MEDS ORDERED: LACTATED RINGERS 1,000 ML IV SCH (15:45)
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
[2021-08-17 15:52] LABS: BASOPHILS % (AUTO) 0 % (0-10); EOSINOPHILS % (AUTO) 0 % (0-10); HEMATOCRIT 46 % (35-52); HEMOGLOBIN 15.5 g/dL (11.5-16.0); LYMPHOCYTES # (AUTO) 2.1 10^3/uL (1.0-4.0); LYMPHOCYTES % (AUTO) 15 % (12-44); MEAN CORPUSCULAR HEMOGLOBIN 30 pg (25-34); MEAN CORPUSCULAR HGB CONC 34 g/dL (32-36); MEAN CORPUSCULAR VOLUME 89 fL (80-99); MEAN PLATELET VOLUME 10.2 fL (9.0-12.2); MONOCYTES # (AUTO) 0.5 10^3/uL (0.0-1.0); MONOCYTES % (AUTO) 4 % (0-12); NEUTROPHILS # (AUTO) 10.6 10^3/uL (1.8-7.8); NEUTROPHILS % (AUTO) 79 % (42-75); PLATELET COUNT 250 10^3/uL (130-400); WHITE BLOOD COUNT 13.3 10^3/uL (4.3-11.0)
[2021-08-17 16:04] LABS: BILIRUBIN,URINE NEGATIVE (NEGATIVE); CLARITY,URINE CLEAR; COLOR,URINE YELLOW; GLUCOSE, URINE (UA) 3+ (NEGATIVE); KETONES,URINE NEGATIVE (NEGATIVE); LEUKOCYTE ESTERASE ,URINE NEGATIVE (NEGATIVE); NITRITE,URINE NEGATIVE (NEGATIVE); PROTEIN,URINE NEGATIVE (NEGATIVE)
[2021-08-17 16:06] LABS: POTASSIUM 4.4 MMOL/L (3.6-5.0)
[2021-08-17 16:07] LABS: CALCIUM 9.7 MG/DL (8.5-10.1)
[2021-08-17 16:11] LABS: BACTERIA,URINE NEGATIVE /HPF; CREATININE SERUM 1.02 MG/DL (0.60-1.30); SQUAMOUS EPITHELIAL CELL,UR RARE /HPF
[2021-08-17 16:17] LABS: AMPHETAMINE SCREEN, URINE NEGATIVE (NEGATIVE); BARBITURATE SCREEN URINE POSITIVE (NEGATIVE); BENZODIAZEPINES SCREEN URINE POSITIVE (NEGATIVE); CANNABINOID SCREEN, URINE POSITIVE (NEGATIVE); COCAINE SCREEN URINE NEGATIVE (NEGATIVE); METHADONE STAT NEGATIVE (NEGATIVE); METHAMPHETAMINE SCREEN URINE S NEGATIVE (NEGATIVE); OPIATE SCREEN URINE NEGATIVE (NEGATIVE); OXYCODONE STAT NEGATIVE (NEGATIVE); PROPOXYPHENE STAT NEGATIVE (NEGATIVE); TRICYCLIC ANTIDEPRESSANTS SCRE NEGATIVE (NEGATIVE)
[2021-08-17] MEDS ORDERED: KETO10TA PO (16:22)
[2021-08-17 16:38] VITALS: BP 125/83
== END 2021-08-17 16:37 | disposition home or self-care (01) ==
LOC: EDUNIT# 14:46 → ER 14:47
DX: G89.29 Other chronic pain (principal); M54.50 Low back pain, unspecified; J45.909 Unspecified asthma, uncomplicated; I10 Essential (primary) hypertension; E11.9 Type 2 diabetes mellitus without complications; F17.210 Nicotine dependence, cigarettes, uncomplicated; Z86.14 Personal history of Methicillin resistant Staphylococcus aureus infection; Z79.891 Long term (current) use of opiate analgesic; Z79.899 Other long term (current) drug therapy
CPT/HCPCS: 80048; 80306; 81000; 84703; 85025; 99284; G0480; 36415; 80320

== ENCOUNTER 2021-11-17 03:51 | Emergency (ER) | payer MEDICAID ==
[~2021-11-17] VITALS: Ht 160 cm; Wt 97.6 kg
[~2021-11-17 03:51] MED LIST changes: +KETO10TA PO; -LISI-729 PO; +LISI5TAB20 PO
[2021-11-17] MEDS ORDERED: SUCR1TAB (04:25)
[2021-11-17] MEDS ORDERED: DULA0.75 (04:25)
[2021-11-17] MEDS ORDERED: VILA20TA (04:25)
[2021-11-17] MEDS ORDERED: ERGO1250 (04:25)
[2021-11-17] MEDS ORDERED: META800T (04:25)
[2021-11-17] MEDS ORDERED: EZET10TA49 (04:25)
[2021-11-17] MEDS ORDERED: PIOG30TA71 (04:25)
[2021-11-17] MEDS ORDERED: PREG150C46 (04:25)
[2021-11-17] MEDS ORDERED: ACYC400T21 (04:25)
[2021-11-17] MEDS ORDERED: PRAZ2CAP (04:25)
[2021-11-17] MEDS ORDERED: ROSU20TA32 (04:25)
[2021-11-17] MEDS ORDERED: ALBUTEROL (04:25)
[2021-11-17] MEDS ORDERED: CELE100C84 (04:25)
[2021-11-17] MEDS ORDERED: CLOR7.5T3 (04:25)
[2021-11-17] MEDS ORDERED: GLIM4TAB5 (04:25)
[2021-11-17] MEDS ORDERED: MEDR150D6 (04:25)
[2021-11-17] MEDS ORDERED: albuterol (04:25)
[2021-11-17] MEDS ORDERED: VILA40TA (04:25)
[2021-11-17] MEDS ORDERED: TOPI50TA13 (04:25)
[2021-11-17] MEDS ORDERED: PANT40TA52 (04:25)
[2021-11-17] MEDS ORDERED: DAPA10TA (04:25)
[2021-11-17] MEDS ORDERED: LIDO700A45 (04:25)
[2021-11-17] MEDS ORDERED: diphenhydrAMINE 50 MG/ML INJ (BENADRYL) IM ONE (05:00)
[2021-11-17] MEDS ORDERED: ORPHENADRINE 60 MG/2 ML (NORFLEX) AMP (ED ONLY) IM ONE (05:00)
[2021-11-17] MEDS ORDERED: KETOROLAC 30 MG/ML VIAL IM ONE (05:00)
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
[2021-11-17 05:18] VITALS: BP 125/81
== END 2021-11-17 05:20 | disposition home or self-care (01) ==
LOC: EDUNIT# 03:51 → ER 03:55
DX: M54.16 Radiculopathy, lumbar region (principal); G89.29 Other chronic pain; I10 Essential (primary) hypertension; E11.40 Type 2 diabetes mellitus with diabetic neuropathy, unspecified; J45.909 Unspecified asthma, uncomplicated; G43.909 Migraine, unspecified, not intractable, without status migrainosus; F41.9 Anxiety disorder, unspecified; F32.A Depression, unspecified; F43.10 Post-traumatic stress disorder, unspecified; K21.9 Gastro-esophageal reflux disease without esophagitis; E66.9 Obesity, unspecified; F17.210 Nicotine dependence, cigarettes, uncomplicated; Z68.38 Body mass index [BMI] 38.0-38.9, adult; Z79.84 Long term (current) use of oral hypoglycemic drugs; Z79.891 Long term (current) use of opiate analgesic; Z79.899 Other long term (current) drug therapy
CPT/HCPCS: 99284

== ENCOUNTER → 2022-03-22 | Outpatient (CLI) | payer MEDICAID ==
[~2022-03-22] MED LIST changes: +ACYC400T21; +ALBUTEROL; +CELE100C84; +CLOR7.5T3; +DAPA10TA; +DULA0.75; +ERGO1250; +EZET10TA49; +GLIM4TAB5; +LIDO700A45; +MEDR150D6; +META800T; +OMEP20TA56 PO; -OMEP20TA7 PO; +PANT40TA52; +PIOG30TA71; +PRAZ2CAP; +PREG150C46; +ROSU20TA32; +SUCR1TAB; +TOPI50TA13; +VILA20TA; +VILA40TA; +albuterol
--- NOTE | 2022-03-22 18:40 | Diagnostic Imaging Report ---
INDICATION: Palpable lump right breast. No prior studies are available for comparison. 2-D and 3-D bilateral diagnostic mammography was performed with CAD. BB markers placed at the area of palpable abnormality medial right breast. Scattered fibroglandular densities in both breasts are noted. No discrete mass or malignant-appearing microcalcifications are seen. Specifically, no underlying abnormality at the area of palpable abnormality medial right breast is identified. Axillae are unremarkable. IMPRESSION: No mammographic features suspicious for malignancy are identified. Even so, directed sonographic interrogation area of palpable abnormality in the medial right breast is recommended and will be performed today. ACR BI-RADS Category 0: Incomplete. (Needs additional imaging evaluation). Result letter will be mailed to the patient. Note: At least 10% of breast cancer is not imaged by mammography. BI-RADS Category 0 Dictated by: Dictated on workstation # [id number]
--- NOTE | 2022-03-22 18:43 | Diagnostic Imaging Report ---
INDICATION: Palpable lump right breast. Correlation is made with diagnostic mammogram earlier the same day. Sonographic interrogation area palpable abnormality right breast was performed. This corresponds to the 3 o'clock location, near the patient's chest wall. There is an ovoid, circumscribed slightly hyperechoic mass at this location measuring 1.7 x 1.9 x 0.9 cm. No internal vascularity is seen, this most likely represents a lipoma. No additional sonographic abnormalities are identified. IMPRESSION: Benign-appearing nodule at the area of palpable abnormality right breast 3 o'clock location near the chest wall most consistent with benign lipoma. The patient may return to routine annual screening mammography. ACR BI-RADS Category 2: Benign findings. Result letter will be mailed to the patient. Note: At least 10% of breast cancer is not imaged by mammography. BI-RADS Category 2 Dictated by: Dictated on workstation # [id number]
== END ==
LOC: RAD 14:15
PROVIDERS: ATTEND Nurse Practitioner
DX: N63.15 Unspecified lump in the right breast, overlapping quadrants (principal)
CPT/HCPCS: 76642; 77066; G0279; 77062